=== PATIENT | female | born 1955 | race Hispanic/Latino ===

== ENCOUNTER 2017-07-30 10:31 | Emergency (ER) | payer OTHER ==
--- OUTSIDE RECORDS SUMMARY | 2017-07-30 10:34 | XMS REPORT | Clinical Summary ---
:1955 Author Organization [facility] Address [address] [place] [address] Care Team Providers Name Role Phone Yazmin Escalante MD Primary Care Provider Allergies Active Allergy Reactions Severity Noted Date Comments Penicillins Anaphylaxis High 03/26/2017 Current Medications Prescription Sig. Disp. Refills Start Date End Date Status carvedilol (COREG) 1 tablet twice 60 tablet 2 03/26/2017 Active 25 MG a day tabletIndications: Essential hypertension cholecalciferol, 1 tab weekly 12 tablet 0 04/28/2017 Active vitamin D3, 50,000 every Thursday unit for 12 weeks tabletIndications: than switch to Vitamin D over the deficiency counter vitamin D3 2000 units 1 tab daily until your next visit lisinopril-hydrochl TAKE ONE (1) 90 tablet 0 07/15/2017 Active orothiazide TABLET(S) BY (EVARISTO BROTHERS MOUTH DAILY. C) 20-12.5 mg per tabletIndications: Essential hypertension lisinopril-hydrochl 1 tablet once 11 01/19/2017 03/26/2017 Discontinued orothiazide a day (MAXX BROTHERSSTALESSIATI C) 20-25 mg per tablet carvedilol (COREG) Take by mouth. 03/26/2017 Discontinued 25 MG tablet 1 tablet twice a day lisinopril-hydrochl Take 1 tablet 30 tablet 1 03/26/2017 07/15/2017 Discontinued orothiazide by mouth (ZESTORETIC) daily. 20-12.5 mg per tabletIndications: Essential hypertension Active Problems Problem Noted Date Gastritis determined by endoscopy 04/26/2017 Overview: 05/01/2015 No metaplasia Colon polyps 04/26/2017 Overview: S/p polypectomy 08/2015 Generalized abdominal pain 04/26/2017 Overview: 2015 s/p colonoscopy /EGD by GI Dr Jaquez Acute seasonal allergic rhinitis due to pollen 04/26/2017 Chronic low back pain without sciatica 04/26/2017 H/O: hysterectomy 04/26/2017 Encounter for hepatitis C screening test for low risk patient 08/13/2015 Esophagitis, reflux 04/26/2015 Overview: 2015 Dr Jaquez ,[place] Constipation Diet-controlled diabetes mellitus Overview: not longer taking medication Hypertension Encounters Date Type Specialty Care Team Description 07/15/2017 Refill Internal Medicine Yazmin Escalante Essential hypertension 04/30/2017 Orders Only Internal Medicine Supa Gutiérrez MD 04/28/2017 Office Visit Internal Medicine Yazmin Escalante Essential hypertension (Primary Dx); Diet-controlled diabetes mellitus; Vitamin D deficiency 04/26/2017 Documentation Internal Medicine Yazmin Escalante MD 04/23/2017 Lab Lab Yazmin Escalante Essential hypertension; Type 2 diabetes mellitus without complication, without long-term current use of insulin; Memory deficit 04/22/2017 Orders Only Internal Medicine ProviderSupa MD 04/21/2017 Orders Only Internal Medicine ProviderSupa MD 04/17/2017 Orders Only Internal Medicine ProviderSupa MD 03/26/2017 Office Visit Internal Medicine Yazmin Escalante Essential hypertension (Primary Dx); Type 2 diabetes mellitus without complication, without long-term current use of insulin; Memory deficit; Chronic idiopathic constipation after 07/29/2016 Family History Medical History Relation Name Comments Stroke Father Diabetes Mother Heart disease Mother Hypertension Mother Leukemia Sister Relation Name Status Comments Father (Age 85) Maternal Grandfather Maternal Grandmother Mother (Age 83) Paternal Grandfather Paternal Grandmother Sister Social History Tobacco Use Types Packs/Day Years Used Date Never Smoker Smokeless Tobacco: Never Used Alcohol Use Drinks/Week oz/Week Comments No Sex Assigned at Date Recorded Not on file Last Filed Vital Signs Vital Sign Reading Time Taken Blood Pressure 135/78 04/28/2017 1:08 PM [facility] Pulse 59 04/28/2017 1:08 PM [facility] Temperature 37.1 C (98.7 F) 04/28/2017 1:08 PM [facility] Respiratory Rate - - Oxygen Saturation 98% 04/28/2017 1:08 PM [facility] Inhaled Oxygen Concentration - - Weight 72.6 kg (160 lb) 04/28/2017 1:08 PM [facility] Height 170.2 cm (5' 7") 04/28/2017 1:08 PM [facility] Body Mass Index 25.06 04/28/2017 1:08 PM [facility] Plan of Treatment Health Maintenance Due Date Last Done Comments FOOT EXAM 1963 OPHTHALMOLOGY EXAM 1963 PAP SMEAR 1974 SHINGRIX VACCINE (#1) 2003 ZOSTER VACCINE 2013 MAMMOGRAM 03/30/2015 03/30/2013 INFLUENZA VACCINE 11/28/2017 Postponed from 10/28/2017 (Patient Refused) URINE MICROALBUMIN 04/23/2018 04/23/2017, 04/23/2017 COLONOSCOPY 03/30/2024 03/30/2014 Procedures Procedure Name Priority Date/Time Associated Diagnosis Comments COLONOSCOPY-EXTERNAL Routine 04/21/2017 12:00 AM WE[facility]CHOR after 07/29/2016 Results Obtain medical records (04/30/2017)Only the most recent of3 resultswithin the time period is included.Microalbumin / creatinine urine ratio (04/23/2017 11:08 AM) Component Value Ref Range Creatinine, urine, random 84.7 Not Estab. mg/dL Microalbumin, urine 3.5 Not Estab. ug/mL Microalbumin/creatinine ratio 4.1 0.0 - 30.0 mg/g creat Specimen Performing Laboratory Blood [facility] Narrative Performed at: - [facility] [id number] Engineering Associate: Andrew Bond MD, Phone:[phone] Vitamin D 25 hydroxy level (04/23/2017 11:08 AM) Component Value Ref Range Vitamin D, 25-hydroxy 17.7 (L) 30.0 - 100.0 ng/mL Comment: Vitamin D deficiency has been defined by the [place] of [employer] and an Endocrine Society practice guideline as a level of serum 25-OH vitamin D less than 20 ng/mL (1,2). The Endocrine Society went on to further define vitamin D insufficiency as a level between 21 and 29 ng/mL (2). 1. IOM ([place] of Medicine). 2010. Dietary reference intakes for calcium and D. [place]: The National Academies Press. 2. Eliel MF, Jayna SHAY, Tonia NEVILLE, et al. Evaluation, treatment, and prevention of vitamin D deficiency: an Endocrine Society clinical practice guideline. JCEM. 2010; 96):1911-30. Specimen Performing Laboratory Blood [facility] Narrative Performed at:[address] [place], [place] [id number] Engineering Associate: Andrew Bond MD, Phone:[phone] CBC hemogram (04/23/2017 11:08 AM) Component Value Ref Range WBC 7.1 3.4 - 10.8 x10E3/uL RBC 4.50 3.77 - 5.28 x10E6/uL HGB 13.6 11.1 - 15.9 g/dL HCT 40.5 34.0 - 46.6 % MCV 90 79 - 97 fL MCH 30.2 26.6 - 33.0 pg MCHC 33.6 31.5 - 35.7 g/dL RDW 13.2 12.3 - 15.4 % Platelet count 197 150 - 379 x10E3/uL Specimen Performing Laboratory Blood [facility] Narrative Performed at:[address] [place], [place] [id number] Engineering Associate: Andrew Bond MD, Phone:[phone] Thyroid stimulating hormone (04/23/2017 11:08 AM) Component Value Ref Range TSH 1.180 0.450 - 4.500 uIU/mL Specimen Performing Laboratory Blood [facility] Narrative Performed at:[address] [place], [place] [id number] Engineering Associate: Andrew Bond MD, Phone:[phone] Iron level (04/23/2017 11:08 AM) Component Value Ref Range Iron level 77 27 - 139 ug/dL Specimen Performing Laboratory Blood [facility] Narrative Performed at:[address] [place], [place] [id number] Engineering Associate: Andrew Bond MD, Phone:[phone] Hemoglobin A1c (04/23/2017 11:08 AM) Component Value Ref Range Hemoglobin A1C 5.8 (H) 4.8 - 5.6 % Comment: Pre-diabetes: 5.7 - 6.4 Diabetes: >6.4 Glycemic control for adults with diabetes: <7.0 Specimen Performing Laboratory Blood [facility] Narrative Performed at:[address] [place], [place] [id number] Engineering Associate: Andrew Bond MD, Phone:[phone] Folate level (04/23/2017 11:08 AM) Component Value Ref Range Folate 10.0 >3.0 ng/mL Comment: A serum folate concentration of less than 3.1 ng/mL is considered to represent clinical deficiency. Specimen Performing Laboratory Blood [facility] Narrative Performed at:[address] [place], [place] [id number] Engineering Associate: Andrew Bond MD, Phone:[phone] Ferritin level (04/23/2017 11:08 AM) Component Value Ref Range Ferritin level 134 15 - 150 ng/mL Specimen Performing Laboratory Blood [facility] Narrative Performed at:[address] [place], [place] [id number] Engineering Associate: Andrew Bond MD, Phone:[phone] Vitamin B12 level (04/23/2017 11:08 AM) Component Value Ref Range Vitamin B12 785 232 - 1,245 pg/mL Specimen Performing Laboratory Blood [facility] Narrative Performed at:[address] [place], [place] [id number] Engineering Associate: Andrew Bond MD, Phone:[phone] Lipid panel (04/23/2017 11:08 AM) Component Value Ref Range Cholesterol 189 100 - 199 mg/dL Triglycerides 97 0 - 149 mg/dL HDL cholesterol 64 >39 mg/dL VLDL cholesterol jimbo 19 5 - 40 mg/dL LDL cholesterol calculated 106 (H) 0 - 99 mg/dL Non-HDL cholesterol 125 0 - 129 mg/dL Specimen Performing Laboratory Blood [facility] Narrative Performed at:[address] [place], [place] [id number] Engineering Associate: Andrew Bond MD, Phone:[phone] Comprehensive metabolic panel (04/23/2017 11:08 AM) Component Value Ref Range Glucose 103 (H) 65 - 99 mg/dL BUN, whole blood 15 8 - 27 mg/dL Creatinine 0.62 0.57 - 1.00 mg/dL EGFR Non-Afr. [place]i 96 >59 mL/min/1.73 EGFR 110 >59 mL/min/1.73 BUN/creatinine ratio 24 12 - 28 Sodium 145 (H) 134 - 144 mmol/L Potassium 4.0 3.5 - 5.2 mmol/L Chloride 101 96 - 106 mmol/L CO2 28 18 - 29 mmol/L Calcium 10.0 8.7 - 10.3 mg/dL Protein 7.7 6.0 - 8.5 g/dL Albumin, S 4.6 3.6 - 4.8 g/dL Globulin, total 3.1 1.5 - 4.5 g/dL Albumin/globulin ratio 1.5 1.2 - 2.2 Total bilirubin 0.6 0.0 - 1.2 mg/dL Alkaline phosphatase 129 (H) 39 - 117 IU/L AST 14 0 - 40 IU/L ALT 11 0 - 32 IU/L Specimen Performing Laboratory Blood [facility] Narrative Performed at: - [facility] [id number] Engineering Associate: Andrew Bond MD, Phone:[phone] COLONOSCOPY-EXTERNAL (04/21/2017)after 07/29/2016 Insurance Payer Benefit Plan / Group Subscriber ID Type Phone Address AETNA AETNA HMO,POS,EPO, MC/EC xxxxxxxxxx HMO [phone] [place] [id number]
--- NOTE | 2017-07-30 11:00 | EKG ---
Test Date: 2017-07-30 Test Time: 10:43:09 Devops Consultant: LLOYD MEASUREMENT RESULTS: Intervals: Rate: 59 IA: 160 QRSD: 82 QT: 400 QTc: 396 [place]: P: 68 IA: 160 QRS: 58 T: 26 INTERPRETIVE STATEMENTS: Sinus bradycardia Nonspecific T wave abnormality Abnormal ECG Compared to ECG 12/30/2014 05:33:06 T-wave abnormality now present Left ventricular hypertrophy no longer present Electronically Signed On 07-30-17 10:59:28 CDT by Jerry Smith
[2017-07-30 12:09] LABS: Protime INR 0.95
[2017-07-30 12:10] LABS: Absolute Lymphocytes (CBC) 1.6 K/uL (0.7-4.9); Absolute Monocytes 0.6 K/uL (0.1-1.3); Absolute Neutrophil 6.7 K/uL (1.8-8.0); Basophils % 0.3 % (0-1.3); Eosinophils % 2.2 % (0-4.4); Hematocrit 40.6 % (36.0-45.0); Lymphocytes % 17.8 % (15.3-44.8); MCH 29.8 pg (27.0-35.0); MCV 89.6 fL (80-100); MPV 10.3 fL (7.6-11.3); Monocytes % 6.6 % (3.3-12.3); RBC Red Blood Cell Count 4.53 M/uL (3.86-4.86)
--- NOTE | 2017-07-30 12:13 | RAD REPORT ---
EXAM DESCRIPTION: CT - Head Brain Wo Cont - 07/30/2017 12:02 pm CLINICAL HISTORY: Headache COMPARISON: 09/02/2016, 06/12/2015 TECHNIQUE: All CT scans are performed using dose optimization technique as appropriate and may inclu de automated exposure control or mA/KV adjustment according to patient size. FINDINGS: No intracranial hemorrhage, hydrocephalus or extra-axial fluid collection.No areas of brai n edema or evidence of midline shift. The paranasal sinuses and mastoids are clear. Right frontal previous craniotomy changes noted. IMPRESSION: No acute intracranial abnormality.
[2017-07-30 12:16] LABS: Potassium 3.7 mEq/L (3.6-5.0)
[2017-07-30 12:22] LABS: Albumin 4.1 g/dL (3.2-5.5); Bilirubin Direct 0.1 mg/dL (0-0.2); Bilirubin Total 0.5 mg/dL (0.3-1.2); Magnesium 1.7 mg/dL (1.8-2.5); Protein, Total 7.8 g/dL (6.0-8.3)
[2017-07-30 12:23] LABS: CKMB Creatine Kinase MB 2.5 ng/ml (0.3-4.0)
[2017-07-30] MEDS ORDERED: DIPHENHYDRAMINE 50 MG/ML VIAL ONE (12:30)
[2017-07-30] MEDS ORDERED: DEXAMETHASONE 10 MG/ML VIAL ONE (12:30)
[2017-07-30] MEDS ORDERED: METOCLOPRAMIDE 10 MG/2mL INJ ONE (12:30)
[2017-07-30] MEDS ORDERED: ONDANSETRON 4 MG/2 ML VIAL ONE (12:30)
[2017-07-30] MEDS ORDERED: Magnesium Sulfate 2gm IVPB 2 G/50 ML BAG IV ONE (12:31)
--- NOTE | 2017-07-30 12:34 | RAD REPORT ---
EXAM DESCRIPTION: RAD - Chest Single View - 07/30/2017 12:29 pm CLINICAL HISTORY: Headache, chest pain COMPARISON: 12/29/2014 FINDINGS: Portable technique limits examination quality. The lungs are grossly clear. The heart is normal in size. No displaced fractures.Cervical hardware pl ate noted. IMPRESSION: No acute intrathoracic process suspected.
[2017-07-30] MEDS ORDERED: NA CHLORIDE 0.9% 1,000 ML ONE (12:50)
--- NOTE | 2017-07-30 15:32 | ER ---
Nurse's Notes [facility] Name: Sofia Syed Age: 62 yrs Sex: Female : 1955 Arrival Date: 07/30/2017 Time: 10:36 Bed 17 Private MD: Diagnosis: Headache;Chest pain, unspecified Presentation: 07/30 10:37 Presenting complaint: Patient states: i started having headache for days but today its hj getting worse and when i woke up this morning around 6am, i started having chest pain, non radiating pain, 8/10; denies SOB, denies cough, denies fever and chills;. Transition of care: patient was not received from another setting of care. Onset of symptoms was July 30, 2017. Initial Sepsis Screen: Does the patient meet any 2 criteria? No. Patient's initial sepsis screen is negative. Does the patient have a suspected source of infection? No. Patient's initial sepsis screen is negative. Care prior to arrival: None. 10:37 Method Of Arrival: Ambulatory 10:37 Acuity: GILBERTO 3 hj Triage Assessment: 10:41 Headache History: Denies prior headaches. General: Appears in no apparent distress. hj uncomfortable, Behavior is calm, cooperative, appropriate for age. Pain: Complains of pain in chest Pain currently is 8 out of 10 on a pain scale. Pain began 4 hours ago. Also complains of. Neuro: Level of Consciousness is awake, alert, obeys commands, Oriented to person, place, time, situation, Appropriate for age. Historical: - Allergies: 10:41 PENICILLINS; hj - Home Meds: 10:41 carvedilol 25 mg Oral tab [Active]; lisinopril-hydrochlorothiazide 20-12.5 mg oral tab hj 1 tab once daily [Active]; - PMHx: 10:41 Diabetes - NIDDM; Dyspepsia; Hypertension; lymphedema; hj - PSHx: 10:41 brain; hj - Immunization history:: Adult Immunizations up to date. - Social history:: Smoking status: Patient/guardian denies using tobacco. Screenin:24 Abuse screen: Denies threats or abuse. Nutritional screening: No deficits noted. em Tuberculosis screening: No symptoms or risk factors identified. Fall Risk None identified. Assessment: 11:24 General: Appears in no apparent distress. comfortable, Behavior is calm, cooperative. em Pain: Complains of pain in cheat and head. Neuro: Level of Consciousness is awake, alert, obeys commands, Oriented to person, place, time, situation. Cardiovascular: Capillary refill < 3 seconds Patient's skin is warm and dry. Respiratory: Airway is patent Respiratory effort is even, unlabored, Respiratory pattern is regular, symmetrical. GI: Abdomen is flat, Reports nausea, Patient currently denies diarrhea, vomiting. : No signs and/or symptoms were reported regarding the genitourinary system. EENT: No signs and/or symptoms were reported regarding the EENT system. Derm: Skin is intact, Skin is pink, warm \T\ dry. Musculoskeletal: Range of motion: intact in all extremities. 12:31 Reassessment: Patient appears in no apparent distress at this time. Patient and/or em family updated on plan of care and expected duration. Pain level reassessed. Patient is alert, oriented x 3, equal unlabored respirations, skin warm/dry/pink. Patient states feeling better. Vital Signs: 10:41 BP 120 / 54; Pulse 62; Resp 18; Temp 97.1(TE); Pulse Ox 98% on R/A; Weight 73.48 kg; hj Height 5 ft. 3 in. (160.02 cm); Pain 8/10; 12:30 BP 134 / 68; Pulse 52; Resp 16; Pulse Ox 99% on R/A; em 13:45 BP 109 / 50; Pulse 51; Resp 18; Pulse Ox 97% on R/A; em 10:41 Body Mass Index 28.70 (73.48 kg, 160.02 cm) ED Course: 10:36 Patient arrived in ED. mr 10:39 Triage completed. hj 10:43 Arm band placed on left wrist. hj 10:47 EKG done, by light technician. reviewed by Edd Gibson MD. at1 11:11 Momo Fitzgerald, JOSIANE is Primary Nurse. ae1 11:14 Volodymyr Menard PA is PHCP. cp 11:14 Edd Gibson MD is Attending Physician. cp 11:30 Patient has correct armband on for positive identification. Bed in low position. Call em light in reach. Side rails up X2. Adult w/ patient. 11:[address] via stretcher. vr 11:46 Radiology exam delayed due to pt not ready at this time, iv being started. vr 11:53 Initial lab(s) drawn, by me, sent to lab. Inserted saline lock: 20 gauge in left dh3 antecubital area, using aseptic technique. Blood collected. 12:02 CT Head Brain wo Cont In Process Unspecified. EDMS 12:28 X-ray completed. Portable x-ray completed in exam room. Patient tolerated procedure jb2 well. 12:29 XRAY Chest (1 view) In Process Unspecified. EDMS 13:08 No provider procedures requiring assistance completed. em 15:01 Repeat lab(s) drawn. by me, sent to lab. 3 15:31 Kemal Mix MD is Referral Physician. cp 15:31 Jerry Smith MD is Referral Physician. cp 15:33 EKG done, by light technician. reviewed by Volodymyr PHILIPPE. dt2 16:51 IV discontinued, intact, bleeding controlled, No redness/swelling at site. Pressure iw dressing applied. Administered Medications: 12:37 CANCELLED (Physician Discretion): NS 0.9% 500 ml IV at bolus once cp 12:45 Drug: Reglan 10 mg Route: IVP; Site: left antecubital; iw 15:28 Follow up: Response: No adverse reaction em 12:45 Drug: Decadron - Dexamethasone 10 mg Route: IVP; Site: left antecubital; iw 15:28 Follow up: Response: No adverse reaction em 12:45 Drug: Zofran 4 mg Route: IVP; Site: left antecubital; iw 15:28 Follow up: Response: No adverse reaction em 12:45 Drug: Benadryl 25 mg Route: IVP; Site: left antecubital; iw 15:27 Follow up: Response: No adverse reaction em 12:53 Drug: Magnesium Sulfate 2 grams Route: IVPB; Infused Over: 2 hrs; Site: left em antecubital; 15:26 Follow up: IV Status: Completed infusion; IV Intake: 50ml em 12:58 Drug: NS 0.9% 1000 ml Route: IV; Rate: 500 ml/hr; Site: left antecubital; em 15:27 Follow up: IV Status: Completed infusion; IV Intake: 1000ml em 12:59 Drug: Aspirin Chewable Tablet 324 mg Route: PO; em 15:27 Follow up: Response: No adverse reaction em Intake: 15:26 IV: 50ml; Total: 50ml. em 15:27 IV: 1000ml; Total: 1050ml. em Outcome: 15:31 Discharge ordered by MD. cp 16:51 Discharged to home ambulatory, with family. iw 16:51 Condition: good 16:51 Discharge instructions given to patient, family, Instructed on discharge instructions, follow up and referral plans. medication usage, Demonstrated understanding of instructions, follow-up care, medications, Prescriptions given X 2. 16:52 Patient left the ED. iw Signatures: Dispatcher [employer] Denisa Zaldivar, Sj jb2 Alfred Paige, FOOD BEVERAGE SERVER FOOD BEVERAGE SERVER em Jennifer Solo, RN RN iw Paula Almaraz Amanda, commission specialist EKG Tat1 Eduardo Barfield RN RN hj Volodymyr Menard PA PA cp Elliott, Andrea RN RN ae1 Josy Hernandez dh3 Dilia Chauhan dt2 Corrections: (The following items were deleted from the chart) 10:42 10:41 Pulse 62bpm; Resp 18bpm; Pulse Ox 98% RA; Temp 97.1F Temporal; 73.48 kg; Height 5 hj ft. 3 in.; BMI: 28.7; Pain 8/10; hj 10:43 10:41 Pulse 62bpm; Resp 18bpm; Pulse Ox 98% RA; Temp 97.1F Temporal; 73.48 kg; Height 5 hj ft. 3 in.; BMI: 28.7; Pain 8/10; hj
--- NOTE | 2017-07-30 15:32 | EDPHYS ---
Physician Documentation [facility] Name: Sofia Syed Age: 62 yrs Sex: Female : 1955 Arrival Date: 07/30/2017 Time: 10:36 Bed 17 Private MD: ED Physician Edd Gibson HPI: 07/30 12:00 This 62 yrs old Female presents to ER via Ambulatory with complaints of cp Headache, Back Pain, Chest Pain. Historical: - Allergies: 10:41 PENICILLINS; hj - Home Meds: 10:41 carvedilol 25 mg Oral tab [Active]; lisinopril-hydrochlorothiazide 20-12.5 mg oral tab hj 1 tab once daily [Active]; - PMHx: 10:41 Diabetes - NIDDM; Dyspepsia; Hypertension; lymphedema; hj - PSHx: 10:41 brain; hj - Immunization history:: Adult Immunizations up to date. - Social history:: Smoking status: Patient/guardian denies using tobacco. ROS: 12:05 Constitutional: Negative for body aches, chills, fever, poor PO intake. cp 12:05 Eyes: Negative for injury, pain, redness, and discharge. cp 12:05 ENT: Negative for drainage from ear(s), ear pain, sore throat, difficulty swallowing, difficulty handling secretions. 12:05 Cardiovascular: Positive for chest pain, Negative for edema, palpitations. 12:05 Respiratory: Negative for cough, shortness of breath, wheezing. 12:05 Abdomen/GI: Positive for nausea, Negative for abdominal pain, vomiting, diarrhea, constipation, black/tarry stool, rectal bleeding. 12:05 Back: Positive for pain at rest. 12:05 : Negative for urinary symptoms. 12:05 Neuro: Positive for headache, Negative for altered mental status, dizziness, speech changes, syncope, near syncope, weakness. 12:05 All other systems are negative. Exam: 10:50 ECG was reviewed by the Attending Physician. cp 12:12 Constitutional: The patient appears in no acute distress, alert, awake, cp non-diaphoretic, non-toxic, well developed, well nourished. 12:12 Head/Face: Normocephalic, atraumatic. Eyes: Pupils equal round and reactive to light, cp extra-ocular motions intact. Lids and lashes normal. Conjunctiva and sclera are non-icteric and not injected. Cornea within normal limits. Periorbital areas with no swelling, redness, or edema. ENT: Nares patent. No nasal discharge, no septal abnormalities noted. Tympanic membranes are normal and external auditory canals are clear. Oropharynx with no redness, swelling, or masses, exudates, or evidence of obstruction, uvula midline. Mucous membranes moist. Neck: Trachea midline, no thyromegaly or masses palpated, and no cervical lymphadenopathy. Supple, full range of motion without nuchal rigidity, or vertebral point tenderness. No Meningismus. Chest/axilla: Normal chest wall appearance and motion. Nontender with no deformity. No lesions are appreciated. 12:12 Cardiovascular: Rate: normal, Rhythm: regular, Pulses: Pulses are 2+ in right radial artery and left radial artery. Edema: is not appreciated, JVD: is not appreciated. 12:12 Respiratory: the patient does not display signs of respiratory distress, Respirations: normal, no use of accessory muscles, no retractions, no splinting, no tachypnea, labored breathing, is not present, Breath sounds: are clear throughout, no decreased breath sounds, no stridor, no wheezing. 12:12 Abdomen/GI: Inspection: abdomen appears normal, Bowel sounds: active, all quadrants, Palpation: abdomen is soft and non-tender, in all quadrants, rebound tenderness, is not appreciated, voluntary guarding, is not appreciated, involuntary guarding, is not appreciated. 12:12 Skin: cellulitis, is not appreciated, no rash present. 12:12 Neuro: Orientation: to person, place \T\ time. Mentation: is normal, Cerebellar function: is grossly normal, Motor: moves all fours, strength is normal, Sensation: no obvious gross deficits. Vital Signs: 10:41 BP 120 / 54; Pulse 62; Resp 18; Temp 97.1(TE); Pulse Ox 98% on R/A; Weight 73.48 kg; hj Height 5 ft. 3 in. (160.02 cm); Pain 8/10; 12:30 BP 134 / 68; Pulse 52; Resp 16; Pulse Ox 99% on R/A; em 13:45 BP 109 / 50; Pulse 51; Resp 18; Pulse Ox 97% on R/A; em 10:41 Body Mass Index 28.70 (73.48 kg, 160.02 cm) hj MDM: 11:20 Patient medically screened. cp 15:30 Data reviewed: vital signs, nurses notes, lab test result(s), EKG, radiologic studies, cp CT scan, plain films. 15:30 Test interpretation: by ED physician or midlevel provider: ECG, plain radiologic cp studies. Response to treatment: the patient's symptoms have markedly improved after treatment, and as a result, I will discharge patient. Special discussion: Based on the patient's history, exam, and Dx evaluation, there is no indication for emergent intervention or inpatient Tx. It is understood by the patient/guardian that if the Sx's persist or worsen they need to return immediately for re-evaluation. 07/30 11:36 Order name: Basic Metabolic Panel; Complete Time: 12:25 cp 05/03 12:25 Interpretation: Normal except: GLUC 142; GFR 75. cp 07/30 11:36 Order name: BNP; Complete Time: 12:25 cp 07/30 11:36 Order name: CBC with Diff; Complete Time: 12:25 cp 07/30 11:36 Order name: Ckmb; Complete Time: 12:25 cp 07/30 11:36 Order name: CPK; Complete Time: 12:25 cp 07/30 11:36 Order name: LFT's; Complete Time: 12:25 cp 05 11:36 Order name: Magnesium; Complete Time: 12:25 cp 05 11:36 Order name: PT-INR; Complete Time: 12:25 cp 07/30 11:36 Order name: Ptt, Activated; Complete Time: 12:25 cp 05 11:36 Order name: Troponin (emerg Dept Use Only); Complete Time: 12:25 cp 07/30 11:36 Order name: XRAY Chest (1 view); Complete Time: 12:37 cp 07/30 11:36 Order name: CT Head Brain wo Cont; Complete Time: 12:25 cp 0503 14:42 Order name: Troponin I; Complete Time: 15:30 cp 05/03 10:43 Order name: EKG; Complete Time: 10:43 hj 07/30 11:36 Order name: Cardiac monitoring; Complete Time: 13:08 cp 07/30 11:36 Order name: EKG - Nurse/Tech; Complete Time: 13:08 cp 07/30 11:36 Order name: IV Saline Lock; Complete Time: 11:54 cp 07/30 11:36 Order name: Labs collected and sent; Complete Time: 11:54 cp 07/30 11:36 Order name: O2 Per Protocol; Complete Time: 12:21 cp 07/30 11:36 Order name: O2 Sat Monitoring; Complete Time: 12:21 cp 07/30 14:42 Order name: EKG; Complete Time: 14:46 cp 07/30 14:42 Order name: EKG - Nurse/Tech; Complete Time: 15:26 cp EC:50 Rate is 59 beats/min. Rhythm is regular. VA interval is normal. QRS interval is normal. cp QT interval is normal. No ST changes noted. Interpreted by me. Reviewed by me. Administered Medications: 12:37 CANCELLED (Physician Discretion): NS 0.9% 500 ml IV at bolus once cp 12:45 Drug: Reglan 10 mg Route: IVP; Site: left antecubital; iw 15:28 Follow up: Response: No adverse reaction em 12:45 Drug: Decadron - Dexamethasone 10 mg Route: IVP; Site: left antecubital; iw 15:28 Follow up: Response: No adverse reaction em 12:45 Drug: Zofran 4 mg Route: IVP; Site: left antecubital; iw 15:28 Follow up: Response: No adverse reaction em 12:45 Drug: Benadryl 25 mg Route: IVP; Site: left antecubital; iw 15:27 Follow up: Response: No adverse reaction em 12:53 Drug: Magnesium Sulfate 2 grams Route: IVPB; Infused Over: 2 hrs; Site: left em antecubital; 15:26 Follow up: IV Status: Completed infusion; IV Intake: 50ml em 12:58 Drug: NS 0.9% 1000 ml Route: IV; Rate: 500 ml/hr; Site: left antecubital; em 15:27 Follow up: IV Status: Completed infusion; IV Intake: 1000ml em 12:59 Drug: Aspirin Chewable Tablet 324 mg Route: PO; em 15:27 Follow up: Response: No adverse reaction em Disposition: 07/31 07:03 Co-signature as Attending Physician, Edd Gibson MD I agree with the assessment and wa plan of care. Disposition: 07/30/17 15:31 Discharged to Home. Impression: Headache, Chest pain, unspecified. - Condition is Stable. - Discharge Instructions: Nonspecific Chest Pain, General Headache Without Cause, Aspirin and Your Heart. - Prescriptions for Fiorinal 50- 325-40 mg Oral Capsule - take 1 capsule by ORAL route every 4 hours As needed - not to exceed 6 capsules per day; 20 capsule. Pepcid 20 mg Oral Tablet - take 1 tablet by ORAL route every 12 hours for 10 days; 20 tablet. Zofran 4 mg Oral Tablet - take 1 tablet by ORAL route every 12 hours As needed; 20 tablet. - Medication Reconciliation Form, Thank You Letter, Antibiotic Education, Prescription Opioid Use form. - Follow up: Kemal Mix MD; When: 1 - 2 days; Reason: headache. Follow up: Jerry Smith MD; When: 1 - 2 days; Reason: chest pain. - Problem is new. - Symptoms have improved. Signatures: Dispatcher [employer] EDKS Alfred Paige, LINES TENDER LINES TENDER em Jennifer Solo RN RN iw Eduardo Barfield RN RN Volodymyr Menard PA PA cp Edd Gibson MD MD wa Corrections: (The following items were deleted from the chart) 07/30 12:37 12:37 NS 0.9% 500 ml IV at bolus once ordered. cp cp 16:52 15:31 07/30/2017 15:31 Discharged to Home. Impression: Headache; Chest pain, iw unspecified. Condition is Stable. Forms are Medication Reconciliation Form, Thank You Letter, Antibiotic Education, Prescription Opioid Use. Follow up: Kemal Mix; When: 1 - 2 days; Reason: headache. Follow up: Jerry Smith; When: 1 - 2 days; Reason: chest pain. Problem is new. Symptoms have improved. cp
--- NOTE | 2017-07-30 16:19 | EKG ---
Test Date: 2017-07-30 Test Time: 15:24:08 Scraper Loader Operator: JOSHUA MEASUREMENT RESULTS: Intervals: Rate: 53 ND: 168 QRSD: 90 QT: 438 QTc: 410 [place]: P: 69 ND: 168 QRS: 62 T: 75 INTERPRETIVE STATEMENTS: Sinus bradycardia Otherwise normal ECG Compared to ECG 07/30/2017 10:43:09 T-wave abnormality no longer present Electronically Signed On 07-30-17 16:18:41 CDT by Jerry Smith
[2017-07-30 18:08] VITALS: TEMP 97.1
[2017-07-30 18:10] VITALS: BP 109/50; O2SAT 97
== END 2017-07-30 16:52 | disposition home or self-care (01) ==
LOC: ER 10:31
DX: R07.9 Chest pain, unspecified (principal); I10 Essential (primary) hypertension; E11.9 Type 2 diabetes mellitus without complications; Z88.0 Allergy status to penicillin
CPT/HCPCS: 36415; 70450; 71045; 80048; 80076; 82550; 82553; 83735; 83880; 84484; 85025; 85610; 85730; 93005; 96361; 96365; 96366; 96375; 99284; J1100; J2405; J2765; J3475; J7030

== ENCOUNTER 2017-10-20 22:37 | Emergency (ER) | payer OTHER ==
--- OUTSIDE RECORDS SUMMARY | 2017-10-20 22:39 | XMS REPORT | Clinical Summary ---
:1955 Author Organization [facility] Address [address] [place] [address] Care Team Providers Name Role Phone Yazmin [...] hypertension 04/30/2017 Orders Only Internal Medicine Supa Gutiérrez, 04/28/2017 Office Visit Internal Medicine Yazmin Escalante [...] insulin; Memory deficit; Chronic idiopathic constipation after 10/19/2016 Family History Medical History Relation Name Comments [...] Taken Blood Pressure 135/78 04/28/2017 1:08 PM CANE PILER Pulse 59 04/28/2017 1:08 PM CANE PILER Temperature 37.1 C (98.7 F) 04/28/2017 1:08 PM CANE PILER Respiratory Rate - - Oxygen Saturation 98% 04/28/2017 1:08 PM CANE PILER Inhaled Oxygen Concentration - - Weight 72.6 kg (160 lb) 04/28/2017 1:08 PM CANE PILER Height 170.2 cm (5' 7") 04/28/2017 1:08 PM CANE PILER Body Mass Index 25.06 04/28/2017 1:08 PM CANE PILER Plan of Treatment Health Maintenance Due Date Last Done Comments DIABETIC FOOT EXAM 1963 DIABETIC RETINAL EYE EXAM 1963 CERVICAL CANCER SCREENING 1974 SHINGRIX VACCINE (#1) 2003 ZOSTER VACCINE 2013 BREAST CANCER SCREENING 03/30/2015 03/30/2013 INFLUENZA VACCINE 11/28/2017 Postponed from 10/28/2017 (Patient Refused) URINE MICROALBUMIN 04/23/2018 04/23/2017, 04/23/2017 COLON CANCER SCREENING 03/30/2024 03/30/2014 Procedures Procedure Name Priority Date/Time Associated Comments Diagnosis OBTAIN MEDICAL RECORDS Routine 04/30/2017 12:00 AM CANE PILER FERRITIN LEVEL Routine 04/23/2017 11:08 Essential Results for this AM CANE PILER hypertension procedure are in Type 2 diabetes the results mellitus without section. complication, without long-term current use of insulin Memory deficit IRON LEVEL Routine 04/23/2017 11:08 Essential Results for this AM CANE PILER hypertension procedure are in Type 2 diabetes the results mellitus without section. complication, without long-term current use of insulin Memory deficit FOLATE LEVEL Routine 04/23/2017 11:08 Essential Results for this AM CANE PILER hypertension procedure are in Type 2 diabetes the results mellitus without section. complication, without long-term current use of insulin Memory deficit VITAMIN B12 LEVEL Routine 04/23/2017 11:08 Essential Results for this AM CANE PILER hypertension procedure are in Type 2 diabetes the results mellitus without section. complication, without long-term current use of insulin Memory deficit VITAMIN D 25 HYDROXY Routine 04/23/2017 11:08 Essential Results for this LEVEL AM CANE PILER hypertension procedure are in Type 2 diabetes the results mellitus without section. complication, without long-term current use of insulin Memory deficit THYROID STIMULATING Routine 04/23/2017 11:08 Essential Results for this HORMONE AM CANE PILER hypertension procedure are in Type 2 diabetes the results mellitus without section. complication, without long-term current use of insulin Memory deficit MICROALBUMIN / Routine 04/23/2017 11:08 Essential Results for this CREATININE URINE RATIO AM CANE PILER hypertension procedure are in Type 2 diabetes the results mellitus without section. complication, without long-term current use of insulin Memory deficit LIPID PANEL Routine 04/23/2017 11:08 Essential Results for this AM CANE PILER hypertension procedure are in Type 2 diabetes the results mellitus without section. complication, without long-term current use of insulin Memory deficit HEMOGLOBIN A1C Routine 04/23/2017 11:08 Essential Results for this AM CANE PILER hypertension procedure are in Type 2 diabetes the results mellitus without section. complication, without long-term current use of insulin Memory deficit COMPREHENSIVE Routine 04/23/2017 11:08 Essential Results for this METABOLIC PANEL AM CANE PILER hypertension procedure are in Type 2 diabetes the results mellitus without section. complication, without long-term current use of insulin Memory deficit CBC HEMOGRAM Routine 04/23/2017 11:08 Essential Results for this AM CANE PILER hypertension procedure are in Type 2 diabetes the results mellitus without section. complication, without long-term current use of insulin Memory deficit OBTAIN MEDICAL RECORDS Routine 04/22/2017 12:00 AM CANE PILER COLONOSCOPY-EXTERNAL Routine 04/21/2017 12:00 AM CANE PILER OBTAIN MEDICAL RECORDS Routine 04/17/2017 12:00 AM CANE PILER after 10/19/2016 Results Obtain medical records (04/30/2017)Only the most recent of3 resultswithin the time period is included. Narrative Performed At Microalbumin / creatinine urine ratio (04/23/2017 11:08 AM) Creatinine, urine, random 84.7 Not Estab. mg/dL [facility] Microalbumin, urine 3.5 Not Estab. ug/mL [facility] Microalbumin/creatinine ratio 4.1 0.0 - 30.0 mg/g creat [facility] Specimen Blood Narrative Performed At Performed at: [facility] [address] [place], [id number] Insurance Billing Clerk: Andrew Bond MD, Phone:[phone] Performing Organization Address City/State/Zipcode Phone Number [facility] Vitamin D 25 hydroxy level (04/23/2017 11:08 AM) Vitamin D, 25-hydroxy 17.7 (L) 30.0 - 100.0 ng/mL [facility] Comment: Vitamin D deficiency has been defined by the [place] of Medicine and an Endocrine Society practice guideline as a level of serum 25-OH vitamin D less than 20 ng/mL (1,2). The Endocrine Society went on to further define vitamin D insufficiency as a level between 21 and 29 ng/mL (2). 1. IOM ([place] of Medicine). 2010. Dietary reference intakes for calcium and D. [place]: The National Academies Press. 2. Eliel MF, Jayna SHAY, Tonia NEVILLE, et al. Evaluation, treatment, and prevention of vitamin D deficiency: an Endocrine Society clinical practice guideline. JCEM. 2010; 96(7):1911-30. Specimen Blood Narrative Performed At Performed at: [facility] [address] [place], [place] [id number] Insurance Billing Clerk: Andrew Bond MD, Phone:[phone] Performing Organization Address [facility] [place] Phone Number [facility] CBC hemogram (04/23/2017 11:08 AM) WBC 7.1 3.4 - 10.8 x10E3/uL [facility] RBC 4.50 3.77 - 5.28 x10E6/uL [facility] HGB 13.6 11.1 - 15.9 g/dL [facility] HCT 40.5 34.0 - 46.6 % [facility] MCV 90 79 - 97 fL [facility] MCH 30.2 26.6 - 33.0 pg [facility] MCHC 33.6 31.5 - 35.7 g/dL [facility] RDW 13.2 12.3 - 15.4 % [facility] Platelet count 197 150 - 379 x10E3/uL [facility] Specimen Blood Narrative Performed At [facility]formed at: [facility] [address] [place], [place] [id number] Insurance Billing Clerk: Andrew Bond MD, Phone:[phone] Performing Organization Address [facility] Phone Number [facility] Thyroid stimulating hormone (04/23/2017 11:08 AM) TSH 1.180 0.450 - 4.500 uIU/mL [facility] Specimen Blood Narrative Performed At Performed at:[address] [place], [place] [id number] Insurance Billing Clerk: Andrew Bond MD, Phone:[phone] Performing Organization Address [facility] Phone Number [facility] Iron level (04/23/2017 11:08 AM) Iron level 77 27 - 139 ug/dL [facility] Specimen Blood Narrative Performed At Performed at: [id number] Insurance Billing Clerk: Andrew Bond MD, Phone:[phone] Performing Organization Address [facility] Phone Number [facility] Hemoglobin A1c (04/23/2017 11:08 AM) Hemoglobin A1C 5.8 (H) 4.8 - 5.6 % [facility] Comment: Pre-diabetes: 5.7 - 6.4 Diabetes: >6.4 Glycemic control for adults with diabetes: <7.0 Specimen Blood Narrative Performed At Performed at: [id number] Insurance Billing Clerk: Andrew Bond MD, Phone:[phone] Performing Organization Address [facility] Phone Number [facility] Folate level (04/23/2017 11:08 AM) Folate 10.0 >3.0 ng/mL [facility] Comment: A serum folate concentration of less than 3.1 ng/mL is considered to represent clinical deficiency. Specimen Blood Narrative Performed At Performed at: [id number] Insurance Billing Clerk: Andrew Bond MD, Phone:[phone] Performing Organization Address [facility] Phone Number [facility] Ferritin level (04/23/2017 11:08 AM) Ferritin level 134 15 - 150 ng/mL [facility] Specimen Blood Narrative Performed At Performed at: [id number] Insurance Billing Clerk: Andrew Bond MD, Phone:[phone] Performing Organization Address [facility] [place] Phone Number [facility] Vitamin B12 level (04/23/2017 11:08 AM) Vitamin B12 785 232 - 1,245 pg/mL [facility] Specimen Blood Narrative Performed At Performed at:[address] [place], [place] [id number] Insurance Billing Clerk: Andrew Bond MD, Phone:[phone] Performing Organization Address [facility] Phone Number [facility] Lipid panel (04/23/2017 11:08 AM) Cholesterol 189 100 - 199 mg/dL [facility] Triglycerides 97 0 - 149 mg/dL [facility] HDL cholesterol 64 >39 mg/dL [facility] VLDL cholesterol jimbo 19 5 - 40 mg/dL [facility] LDL cholesterol calculated 106 (H) 0 - 99 mg/dL [facility] Non-HDL cholesterol 125 0 - 129 mg/dL [facility] Specimen Blood Narrative Performed At Performed at: [facility] [address] [place], [place] [id number] Insurance Billing Clerk: Andrew Bond MD, Phone:[phone] Performing Organization Address [facility] Phone Number [facility] Comprehensive metabolic panel (04/23/2017 11:08 AM) Glucose 103 (H) 65 - 99 mg/dL [facility] BUN, whole blood 15 8 - 27 mg/dL [facility] Creatinine 0.62 0.57 - 1.00 mg/dL [facility] EGFR Non-Afr. Turkish 96 >59 mL/min/1.73 [facility] EGFR 110 >59 mL/min/1.73 [facility] BUN/creatinine ratio 24 12 - 28 [facility] Sodium 145 (H) 134 - 144 mmol/L [facility] Potassium 4.0 3.5 - 5.2 mmol/L [facility] [place] 101 96 - 106 mmol/L [facility] CO2 28 18 - 29 mmol/L [facility] Calcium 10.0 8.7 - 10.3 mg/dL [facility] Protein 7.7 6.0 - 8.5 g/dL [facility] Albumin, S 4.6 3.6 - 4.8 g/dL [facility] Globulin, total 3.1 1.5 - 4.5 g/dL [facility] Albumin/globulin ratio 1.5 1.2 - 2.2 [facility] Total bilirubin 0.6 0.0 - 1.2 mg/dL [facility] Alkaline phosphatase 129 (H) 39 - 117 IU/L [facility] AST 14 0 - 40 IU/L [facility] ALT 11 0 - 32 IU/L [facility] Specimen Blood Narrative Performed At Performed at: - [facility] [address] [place], [id number] Insurance Billing Clerk: Andrew Bond MD, Phone:[phone] Performing Organization Address City/State/Zipcode Phone Number [facility] COLONOSCOPY-EXTERNAL (04/21/2017) Narrative Performed At after 10/19/2016 Insurance Payer Benefit Plan / Group Subscriber ID Type Phone Address AETNA AETNA HMO,POS,EPO, MC/EC xxxxxxxxxx HMO [phone] [place], [place] [id number]
[2017-10-20] MEDS ORDERED: ONDANSETRON 4 MG/2 ML VIAL ONE (23:18)
[2017-10-20] MEDS ORDERED: MORPHINE 4 MG/ML SYR ONE (23:18)
[2017-10-20 23:25] LABS: Absolute Lymphocytes (CBC) 2.2 K/uL (0.7-4.9); Absolute Monocytes 0.5 K/uL (0.1-1.3); Absolute Neutrophil 4.1 K/uL (1.8-8.0); Basophils % 0.6 % (0-1.3); Eosinophils % 3.9 % (0-4.4); Hematocrit 38.3 % (36.0-45.0); MCH 30.6 pg (27.0-35.0); MPV 10.1 fL (7.6-11.3); Monocytes % 7.3 % (3.3-12.3)
[2017-10-20 23:33] LABS: Urine Blood NEGATIVE (NEG); Urine Glucose NEGATIVE (NEG); Urine Protein NEGATIVE (NEG); Urine Specific Gravity 1.015 (1.005-1.030)
[2017-10-20 23:33] LABS: Urine Bacteria <20 /HPF (<20); Urine Culture Reflex Order NOT NEEDED; Urine RBC <5 /HPF (NONE SEEN)
[2017-10-20 23:41] LABS: Albumin 3.7 g/dL (3.4-5.0); Bilirubin Direct 0.1 mg/dL (0-0.2); Bilirubin Total 0.3 mg/dL (0.2-1.0); Potassium 3.4 mmol/L (3.5-5.1); Protein, Total 7.9 g/dL (6.4-8.2)
--- NOTE | 2017-10-21 01:55 | ER ---
Nurse's Notes [facility] Name: Sofia Syed Age: 62 yrs Sex: Female : 1955 Arrival Date: 10/20/2017 Time: 22:41 Bed 18 Private MD: Renetta Baca Diagnosis: Unspecified abdominal pain Presentation: 10/20 22:49 Presenting complaint: Patient states: she is having right flank pain radiating to bb abdomen since approx 1600 today pain is constant and is 10/10. Transition of care: patient was not received from another setting of care. Onset of symptoms was October 20, 2017 at 16:00. Risk Assessment: Do you want to hurt yourself or someone else? Patient reports no desire to harm self or others. Initial Sepsis Screen: Does the patient meet any 2 criteria? No. Patient's initial sepsis screen is negative. Does the patient have a suspected source of infection? No. Patient's initial sepsis screen is negative. Care prior to arrival: None. 22:49 Method Of Arrival: Ambulatory bb 22:49 Acuity: GILBERTO 3 bb Historical: - Allergies: 22:50 PENICILLINS; bb - Home Meds: 22:50 carvedilol 25 mg Oral tab [Active]; lisinopril-hydrochlorothiazide 20-12.5 mg Oral tab bb 1 tab once daily [Active]; - PMHx: 22:50 Diabetes - NIDDM; Dyspepsia; Hypertension; lymphedema; bb - PSHx: 22:50 brain; Cholecystectomy; bb - Immunization history:: Adult Immunizations up to date. - Social history:: Smoking status: Patient/guardian denies using tobacco, Patient/guardian denies using alcohol, street drugs. - Ebola Screening: : No symptoms or risks identified at this time. Screenin:17 Abuse screen: Denies threats or abuse. Nutritional screening: No deficits noted. ea Tuberculosis screening: No symptoms or risk factors identified. Fall Risk None identified. Assessment: 23:27 General: Appears in no apparent distress. Behavior is calm, cooperative, appropriate ea for age. Pain: Complains of pain in anterior aspect of right lateral abdomen, anterior aspect of left lateral abdomen, right lower quadrant and left lower quadrant. Pain: Quality of pain is described as aching, Is continuous. Neuro: Level of Consciousness is awake, alert, obeys commands, Oriented to person, place, time, situation. Cardiovascular: Heart tones S1 S2 present. Respiratory: Airway is patent Respiratory effort is even, unlabored, Respiratory pattern is regular, symmetrical, Breath sounds are clear bilaterally. GI: Abdomen is non-distended, Bowel sounds present X 4 quads. : No signs and/or symptoms were reported regarding the genitourinary system. Derm: Skin is dry, Skin is normal, Skin temperature is warm. Musculoskeletal: Circulation, motion, and sensation intact. 23:45 Reassessment: Patient and/or family updated on plan of care and expected duration. Pain ea level reassessed. Patient is alert, oriented x 3, equal unlabored respirations, skin warm/dry/pink. Pt taken to CT. 23:59 Reassessment: Patient and/or family updated on plan of care and expected duration. Pain ea level reassessed. Patient is alert, oriented x 3, equal unlabored respirations, skin warm/dry/pink. Pt returned from CT. 10/21 01:24 Reassessment: Patient and/or family updated on plan of care and expected duration. Pain ea level reassessed. Patient is alert, oriented x 3, equal unlabored respirations, skin warm/dry/pink. Pt resting with eyes closed, respirations even and unlabored. Chest expansions even and symmetrical. Family at bedside. No s/s of pain or discomfort noted at this time. 02:03 Reassessment: Patient and/or family updated on plan of care and expected duration. Pain ea level reassessed. Patient is alert, oriented x 3, equal unlabored respirations, skin warm/dry/pink. Discharge instructions given to patient, verbalized the understanding of instruction. Pt discharged home ambulatory accompanied by family. Patient states feeling better. Vital Signs: 10/20 22:50 BP 114 / 60; Pulse 56; Resp 16 S; Temp 98(O); Pulse Ox 99% on R/A; Weight 73.48 kg (R); bb Height 5 ft. 8 in. (172.72 cm) (R); Pain 10/10; 23:54 BP 103 / 48; Pulse 52; Resp 18; Pulse Ox 98% on R/A; Pain 4/10; ea 10/21 00:30 BP 109 / 57; Pulse 57; Resp 18; Pulse Ox 99% on R/A; Pain 2/10; ea 01:48 BP 117 / 58; Pulse 52; Resp 18; Pulse Ox 98% on R/A; Pain 0/10; ea 01:55 Temp 98.2; ea 10/20 22:50 Body Mass Index 24.63 (73.48 kg, 172.72 cm) kelvin ED Course: 10/20 22:41 Patient arrived in ED. es 22:45 Renetta Baca is Private Physician. es 22:50 Triage completed. bb 22:50 Arm band placed on Patient placed in an exam room, on a stretcher, on pulse oximetry. bb Family accompanied patient. 22:51 Cm Layton NP is PHCP. pm1 22:51 Jack Chao MD is Attending Physician. pm1 23:01 Sonia Gan RN is Primary Nurse. ea 23:16 Inserted saline lock: 22 gauge in right antecubital area, using aseptic technique. ea Blood collected. 23:27 Patient has correct armband on for positive identification. Bed in low position. Call ea light in reach. Side rails up X2. 23:51 CT completed. Patient tolerated procedure well. Patient moved to CT via wheelchair. Patient moved back from CT. 10/21 00:07 CT Stone Protocol In Process Unspecified. EDMS 02:05 No provider procedures requiring assistance completed. IV discontinued, intact, ea bleeding controlled, No redness/swelling at site. Pressure dressing applied. Administered Medications: 10/20 23:24 Drug: Zofran 4 mg Route: IVP; Site: right antecubital; ea 10/21 00:40 Follow up: Response: No adverse reaction ea 10/20 23:25 Drug: morphine 4 mg Route: IVP; Site: right antecubital; ea 10/21 00:45 Follow up: Response: No adverse reaction; Pain is decreased ea Outcome: 01:55 Discharge ordered by . pm1 02:05 Discharged to home ambulatory, with family. ea 02:05 Condition: improved 02:05 Discharge instructions given to patient, Instructed on discharge instructions, follow up and referral plans. Demonstrated understanding of instructions, follow-up care. 02:07 Patient left the ED. ea Signatures: Dispatcher [employer] EDKS Danitza Boyer Ervin Andreea Castellano RN RN bb Cm Layton NP SENIOUR INSIGHT MANAGER pm1 Malik Sonia, RN RN ea
--- NOTE | 2017-10-21 01:55 | EDPHYS ---
Physician Documentation [facility] Name: Sofia Syed Age: 62 yrs Sex: Female : 1955 Arrival Date: 10/20/2017 Time: 22:41 Bed 18 Private MD: Renetta Baca ED Physician Jack Chao HPI: 10/20 23:50 This 62 yrs old Female presents to ER via Ambulatory with complaints of Right pm1 Flank Pain. 23:50 The patient complains of pain in the right low back. The pain radiates to the right pm1 upper quadrant. Onset: The symptoms/episode began/occurred today, at 16:00. Modifying factors: The symptoms are alleviated by nothing. the symptoms are aggravated by nothing. Associated signs and symptoms: Pertinent positives: nausea, Pertinent negatives: dysuria, fever, vomiting. Severity of pain: in the emergency department the pain is unchanged. The patient has not experienced similar symptoms in the past. The patient has not recently seen a physician. Historical: - Allergies: 22:50 PENICILLINS; bb - Home Meds: 22:50 carvedilol 25 mg Oral tab [Active]; lisinopril-hydrochlorothiazide 20-12.5 mg Oral tab bb 1 tab once daily [Active]; - PMHx: 22:50 Diabetes - NIDDM; Dyspepsia; Hypertension; lymphedema; bb - PSHx: 22:50 brain; Cholecystectomy; bb - Immunization history:: Adult Immunizations up to date. - Social history:: Smoking status: Patient/guardian denies using tobacco, Patient/guardian denies using alcohol, street drugs. - Ebola Screening: : No symptoms or risks identified at this time. ROS: 23:50 Constitutional: Negative for fever, chills, and weight loss, Eyes: Negative for injury, pm1 pain, redness, and discharge, ENT: Negative for injury, pain, and discharge, Neck: Negative for injury, pain, and swelling, Cardiovascular: Negative for chest pain, palpitations, and edema, Respiratory: Negative for shortness of breath, cough, wheezing, and pleuritic chest pain. 23:50 : Negative for injury, bleeding, discharge, and swelling, MS/Extremity: Negative for injury and deformity, Skin: Negative for injury, rash, and discoloration. 23:50 Neuro: Negative for headache, weakness, numbness, tingling, and seizure. 23:50 Abdomen/GI: Positive for abdominal pain, nausea, of the right upper quadrant, Negative for vomiting, diarrhea. 23:50 Back: Positive for flank pain, on the right. Exam: 23:50 Constitutional: This is a well developed, well nourished patient who is awake, alert, pm1 and in no acute distress. Head/Face: Normocephalic, atraumatic. Eyes: Pupils equal round and reactive to light, extra-ocular motions intact. Lids and lashes normal. Conjunctiva and sclera are non-icteric and not injected. Cornea within normal limits. Periorbital areas with no swelling, redness, or edema. ENT: Nares patent. No nasal discharge, no septal abnormalities noted. Tympanic membranes are normal and external auditory canals are clear. Oropharynx with no redness, swelling, or masses, exudates, or evidence of obstruction, uvula midline. Mucous membranes moist. Neck: Trachea midline, no thyromegaly or masses palpated, and no cervical lymphadenopathy. Supple, full range of motion without nuchal rigidity, or vertebral point tenderness. No Meningismus. Chest/axilla: Normal chest wall appearance and motion. Nontender with no deformity. No lesions are appreciated. Cardiovascular: Regular rate and rhythm with a normal S1 and S2. No gallops, murmurs, or rubs. No pulse deficits. Respiratory: Lungs have equal breath sounds bilaterally, clear to auscultation and percussion. No rales, rhonchi or wheezes noted. No increased work of breathing, no retractions or nasal flaring. Abdomen/GI: Soft, non-tender, with normal bowel sounds. No distension or tympany. No guarding or rebound. No evidence of tenderness throughout. 23:50 Skin: Warm, dry with normal turgor. Normal color with no rashes, no lesions, and no evidence of cellulitis. MS/ Extremity: Pulses equal, no cyanosis. Neurovascular intact. Full, normal range of motion. 23:50 Back: pain, of the right mid back, tenderness, normal spinal alignment noted. 23:50 Neuro: Orientation: is normal, Motor: is normal, moves all fours. Vital Signs: 22:50 BP 114 / 60; Pulse 56; Resp 16 S; Temp 98(O); Pulse Ox 99% on R/A; Weight 73.48 kg (R); bb Height 5 ft. 8 in. (172.72 cm) (R); Pain 10/10; 23:54 BP 103 / 48; Pulse 52; Resp 18; Pulse Ox 98% on R/A; Pain 4/10; ea 10/21 00:30 BP 109 / 57; Pulse 57; Resp 18; Pulse Ox 99% on R/A; Pain 2/10; ea 01:48 BP 117 / 58; Pulse 52; Resp 18; Pulse Ox 98% on R/A; Pain 0/10; ea 01:55 Temp 98.2; ea 10/20 22:50 Body Mass Index 24.63 (73.48 kg, 172.72 cm) bb MDM: 10/20 22:53 Patient medically screened. pm1 10/21 01:53 Data reviewed: vital signs. Data interpreted: Pulse oximetry: on room air is 98 %. pm1 Interpretation: normal. Counseling: I had a detailed discussion with the patient and/or guardian regarding: the historical points, exam findings, and any diagnostic results supporting the discharge/admit diagnosis, lab results, radiology results, the need for outpatient follow up, to return to the emergency department if symptoms worsen or persist or if there are any questions or concerns that arise at home. 01:53 ED course: Patient offered pain medications and anti-nausea medications for pm1 prescription. Patient refused. 10/20 22:52 Order name: Basic Metabolic Panel; Complete Time: 23:41 pm10/20 22:52 Order name: CBC with Diff; Complete Time: 23:27 pm10/20 22:52 Order name: Hepatic Function; Complete Time: 23:41 pm10/20 22:52 Order name: Lipase; Complete Time: 23:41 pm10/20 22:52 Order name: Urine Microscopic Only; Complete Time: 23:41 pm10/20 23:16 Order name: Urine Dipstick--Ancillary (enter results); Complete Time: 23:41 mi 10/20 22:52 Order name: IV Saline Lock; Complete Time: 23:16 pm10/20 22:52 Order name: Labs collected and sent; Complete Time: 23:16 pm10/20 22:52 Order name: Urine Dipstick-Ancillary (obtain specimen); Complete Time: 23:27 pm1 10/20 22:58 Order name: CT Stone Protocol pm1 Administered Medications: 10/20 23:24 Drug: Zofran 4 mg Route: IVP; Site: right antecubital; ea 10/21 00:40 Follow up: Response: No adverse reaction ea 10/20 23:25 Drug: morphine 4 mg Route: IVP; Site: right antecubital; ea 10/21 00:45 Follow up: Response: No adverse reaction; Pain is decreased ea Disposition: 02:34 Co-signature as Attending Physician, Jack Chao MD. marco Disposition: 10/21/17 01:55 Discharged to Home. Impression: Unspecified abdominal pain. - Condition is Stable. - Discharge Instructions: Flank Pain, Adult. - Medication Reconciliation Form, Thank You Letter, Antibiotic Education, Prescription Opioid Use form. - Follow up: Emergency Department; When: As needed; Reason: Worsening of condition. Follow up: Private Physician; When: 2 - 3 days; Reason: Recheck today's complaints, Continuance of care, Re-evaluation by your physician. - Problem is new. - Symptoms have improved. Signatures: Dispatcher [employer] EDMS Jack Chao MD MD pkAndreea Reed RN RN bb Marinas, Patrick, NP CYBER INCIDENT RESPONDER pm1 Sonia Gan RN RN ea Corrections: (The following items were deleted from the chart) 01:54 01:53 ED course: Patient offered pain medications and anti-nausea medications. Patient pm1 refused. pm1 01:55 01:55 10/21/2017 01:55 Discharged to Home. Impression: Unspecified abdominal pain. pm1 Condition is Stable. Forms are Medication Reconciliation Form, Thank You Letter, Antibiotic Education, Prescription Opioid Use. Follow up: Emergency Department; When: As needed; Reason: Worsening of condition. Follow up: Private Physician; When: 2 - 3 days; Reason: Recheck today's complaints, Continuance of care, Re-evaluation by your physician. Problem is new. Symptoms have improved. pm1 02:07 01:55 10/21/2017 01:55 Discharged to Home. Impression: Unspecified abdominal pain. ea Condition is Stable. Forms are Medication Reconciliation Form, Thank You Letter, Antibiotic Education, Prescription Opioid Use. Follow up: Emergency Department; When: As needed; Reason: Worsening of condition. Follow up: Private Physician; When: 2 - 3 days; Reason: Recheck today's complaints, Continuance of care, Re-evaluation by your physician. Problem is new. Symptoms have improved. pm1
[2017-10-21 02:15] VITALS: BP 117/58; O2SAT 98
[2017-10-21 02:16] VITALS: TEMP 98.2
--- NOTE | 2017-10-21 08:58 | RAD REPORT ---
EXAM DESCRIPTION: CT - Stone Protocol - 10/21/2017 2:43 am CLINICAL HISTORY: Abdominal pain. A preliminary written report was provided at the time of the study, and the report was reviewed prio r to final dictation. COMPARISON: CT study December 2016 TECHNIQUE: Axial 5 mm thick images were obtained without oral or IV contrast. The [id number] span s the entirety of the system include uppermost abdomen and lung bases. All CT scans are performed using dose optimization technique as appropriate and may include automated exposure control or mA/KV adjustment according to patient size. FINDINGS: No hydronephrosis is present and no obstructing ureteral calculi. No suspicious renal mass es. Posterior right and lower pole left large cysts are present and stable. Isodense masses and pyelo nephritis are not excluded on a stone protocol CT scan. Partially filled urinary bladder shows no ana picious finding. Uterus is absent. Ovaries are absent or atrophic. Pelvic floor laxity is evident. Imaged portions of the liver, spleen and pancreas show no suspicious findings on non-contrast imaging . Cholecystectomy clips are present. No biliary tree dilatation. No significant adrenal finding. No suspicious bowel findings. No mass or bulky lymphadenopathy. Small fat only periumbilical hernia is unchanged. No free air, free fluid or inflammatory stranding. No significant bony abnormality. IMPRESSION: Noncontrast CT abdomen and pelvis shows no acute finding. No significant change from the comparison. Isodense masses and pyelonephritis are not excluded on stone protocol technique.
== END 2017-10-21 02:07 | disposition home or self-care (01) ==
LOC: ER 22:37
DX: R10.9 Unspecified abdominal pain (principal); E11.9 Type 2 diabetes mellitus without complications; I10 Essential (primary) hypertension; Z79.4 Long term (current) use of insulin; Z88.0 Allergy status to penicillin
CPT/HCPCS: 36415; 74176; 76377; 80048; 80076; 81003; 81015; 83690; 85025; 96374; 96375; 99284; J2405

== ENCOUNTER 2017-11-23 13:33 | Emergency (ER) | payer OTHER ==
--- OUTSIDE RECORDS SUMMARY | 2017-11-23 13:45 | XMS REPORT | Clinical Summary ---
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 complication, without long-term current use of insulin Memory deficit THYROID STIMULATING Routine 04/23/2017 11:08 Essential Results for this HORMONE AM 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 complication, without long-term current use of insulin Memory deficit MICROALBUMIN / Routine 04/23/2017 11:08 Essential Results for this CREATININE URINE RATIO AM 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 complication, without long-term current use of insulin Memory deficit COMPREHENSIVE Routine 04/23/2017 11:08 Essential Results for this METABOLIC PANEL AM 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 Narrative Performed At Microalbumin / creatinine urine ratio (04/23/2017 11:08 AM) Creatinine, urine, random 84.7 Not Estab. mg/dL [facility] Microalbumin, urine 3.5 Not Estab. ug/mL [facility] Microalbumin/creatinine ratio 4.1 0.0 - 30.0 mg/g creat [facility] Specimen Blood Narrative Performed At Performed at: [facility] [address] [place], [id number] Environmental Journalist: Andrew Bond MD, Phone:[phone] Performing Organization Address City/State/Zipcode Phone Number [facility] Vitamin D 25 hydroxy level (04/23/2017 11:08 AM) Vitamin D, 25-hydroxy 17.7 (L) 30.0 - 100.0 ng/mL [facility] Comment: Vitamin D deficiency has been defined by the [place] of Medicine and an Endocrine Society practice guideline as a level of serum 25-OH vitamin D less than 20 ng/mL (1,2). The Endocrine Society went on to further define vitamin D insufficiency as a level between 21 and 29 ng/mL (2). 1. IOM ([place] of Medicine). 2010. Dietary reference intakes for calcium and D. [place]: The National Academies Press. 2. Eliel MF, Jayna SHAY, Tonia NEVILLE, et al. Evaluation, treatment, and prevention of vitamin D deficiency: an Endocrine Society clinical practice guideline. JCEM. 2010; 96(7):1911-30. Specimen Blood Narrative Performed At Performed at: [facility] [address] [place], [place] [id number] Environmental Journalist: Andrew Bond MD, Phone:[phone] Performing Organization Address [facility] Phone Number [facility] CBC hemogram (04/23/2017 11:08 [...] Specimen Blood Narrative Performed At Performed at: [facility] [address] [place], [place] [id number] Environmental Journalist: Andrew Bond MD, Phone:[phone] Performing Organization Address [facility] Phone Number [facility] Thyroid stimulating hormone (04/23/2017 11:08 AM) TSH 1.180 0.450 - 4.500 uIU/mL [facility] Specimen Blood Narrative Performed At Performed at:[address] [place], [place] [id number] Environmental Journalist: Andrew Bond MD, Phone:[phone] Performing Organization Address [facility] Phone Number [facility] Iron level (04/23/2017 11:08 AM) Iron level 77 27 - 139 ug/dL [facility] Specimen Blood Narrative Performed At Performed at: [id number] Environmental Journalist: Andrew Bond MD, Phone:[phone] Performing Organization Address [facility] Phone Number [facility] Hemoglobin A1c (04/23/2017 11:08 AM) Hemoglobin A1C 5.8 (H) 4.8 - 5.6 % [facility] Comment: Pre-diabetes: 5.7 - 6.4 Diabetes: >6.4 Glycemic control for adults with diabetes: <7.0 Specimen Blood Narrative Performed At Performed at: [id number] Environmental Journalist: Andrew Bond MD, Phone:[phone] Performing Organization Address [facility] Phone Number [facility] Folate level (04/23/2017 11:08 AM) Folate 10.0 >3.0 ng/mL [facility] Comment: A serum folate concentration of less than 3.1 ng/mL is considered to represent clinical deficiency. Specimen Blood Narrative Performed At Performed at: [id number] Environmental Journalist: Andrew Bond MD, Phone:[phone] Performing Organization Address [facility] Phone Number [facility] Ferritin level (04/23/2017 11:08 AM) Ferritin level 134 15 - 150 ng/mL [facility] Specimen Blood Narrative Performed At Performed at: [id number] Environmental Journalist: Andrew Bond MD, Phone:[phone] Performing Organization Address [facility] Phone Number [facility] Vitamin B12 level (04/23/2017 11:08 AM) Vitamin B12 785 232 - 1,245 pg/mL [facility] Specimen Blood Narrative Performed At Performed at:[address] [place], [place] [id number] Environmental Journalist: Andrew Bond MD, Phone:[phone] Performing Organization Address [facility] Phone Number [facility] Lipid panel (04/23/2017 11:08 AM) Cholesterol 189 100 - 199 mg/dL [facility] Triglycerides 97 0 - 149 mg/dL [facility] HDL cholesterol 64 >39 mg/dL [facility] VLDL cholesterol jimbo 19 5 - 40 mg/dL [facility] LDL cholesterol calculated 106 (H) 0 - 99 mg/dL [facility] Non-HDL cholesterol 125 0 - 129 mg/dL [facility] Specimen Blood Narrative Performed At Performed at: [facility] [address] [place], [place] [id number] Environmental Journalist: Andrew Bond MD, Phone:[phone] Performing Organization Address [facility] Phone Number [facility] Comprehensive metabolic panel (04/23/2017 11:08 AM) Glucose 103 (H) 65 - 99 mg/dL [facility] BUN, whole blood 15 8 - 27 mg/dL [facility] Creatinine 0.62 0.57 - 1.00 mg/dL [facility] EGFR Non-Afr. Sri [place]an 96 >59 mL/min/1.73 [facility] EGFR 110 >59 [...] Narrative Performed At Performed at: - [facility] [address] [place], [id number] Environmental Journalist: Andrew Bond MD, Phone:[phone] Performing Organization Address City/State/Zipcode Phone Number [facility] COLONOSCOPY-EXTERNAL (04/21/2017) Narrative Performed At after 11/22/2016 Insurance Payer Benefit Plan / Group Subscriber ID Type Phone Address AETNA AETNA HMO,POS,EPO, MC/EC xxxxxxxxxx HMO [phone] [place], [place] [id number]
[2017-11-23] MEDS ORDERED: LACTULOSE 20 GM/30 ML UCUP ONE (15:17)
[2017-11-23] MEDS ORDERED: BISACODYL 10 MG RECTAL SUPP ONE (15:17)
[2017-11-23] MEDS ORDERED: NA CHLORIDE 0.9% 500 ML ONE (15:17)
[2017-11-23 15:54] LABS: Protime INR 1.01
[2017-11-23 16:05] LABS: Absolute Lymphocytes (CBC) 0.8 K/uL (0.7-4.9); Absolute Monocytes 0.9 K/uL (0.1-1.3); Absolute Neutrophil 12.5 K/uL (1.8-8.0); Basophils % 0.3 % (0-1.3); Eosinophils % 0.3 % (0-4.4); Hematocrit 43.1 % (36.0-45.0); Lymphocytes % 5.3 % (15.3-44.8); MCH 30.3 pg (27.0-35.0); MCV 89.6 fL (80-100); MPV 10.5 fL (7.6-11.3); Monocytes % 6.4 % (3.3-12.3); RBC Red Blood Cell Count 4.81 M/uL (3.86-4.86)
[2017-11-23] MEDS ORDERED: ONDANSETRON 4 MG/2 ML VIAL ONE (16:13)
[2017-11-23 16:22] LABS: Albumin 3.9 g/dL (3.4-5.0); Bilirubin Direct 0.1 mg/dL (0-0.2); Bilirubin Total 0.7 mg/dL (0.2-1.0); CKMB Creatine Kinase MB 1.6 ng/mL (0.3-3.6); Magnesium 2.6 mg/dL (1.8-2.4); Potassium 3.9 mmol/L (3.5-5.1); Protein, Total 8.5 g/dL (6.4-8.2)
[2017-11-23] MEDS ORDERED: FENTANYL CITR 100 MCG/2 ML ONE (16:30)
[2017-11-23 16:57] LABS: Urine White Blood Cell Casts OK
[2017-11-23 16:58] LABS: Blood Morphology Comment NOT SEEN (NOT SEEN); Platelet Estimate ADEQ
--- NOTE | 2017-11-23 17:15 | RAD REPORT ---
EXAM DESCRIPTION: RAD - Chest Single View - 11/23/2017 3:22 pm CLINICAL HISTORY: Abdominal pain, abdominal distention COMPARISON: July 2017 TECHNIQUE: AP portable chest image was obtained 1518 hours . FINDINGS: No acute lung parenchymal process. Lung markings are similar to comparison. Heart and vasc ulature are normal. No measurable pleural effusion and no pneumothorax. No gross bony abnormality see n. No acute aortic findings suspected. IMPRESSION: No acute cardiopulmonary process.
[2017-11-23] MEDS ORDERED: METRONIDAZOLE 500mg IVPB 500 MG/100 ML BAG IV ONE (17:22)
[2017-11-23] MEDS ORDERED: CIPROFLOXACIN 400mg IV 400 MG/200 ML BAG IV ONE (17:22)
--- NOTE | 2017-11-23 18:08 | RAD REPORT ---
EXAM DESCRIPTION: CT - Abdomen Pelvis W Contrast - 11/23/2017 5:53 pm CLINICAL HISTORY: Abdominal pain./rectal pain COMPARISON: December 2016 TECHNIQUE: Computed axial tomography of the abdomen and pelvis was obtained. 100 cc Isovue-300 is ad ministered intravenously. Oral contrast was given. All CT scans are performed using dose optimization technique as appropriate and may include automated exposure control or mA/KV adjustment according to patient size. FINDINGS: The liver, spleen, pancreas, and adrenals appear unremarkable. Bilateral renal cysts are present. The largest extends off of the left kidney measuring 7.1 centimeters Small umbilical hernia is present The appendix is normal caliber. There is no evidence of diverticulitis A small hiatal hernia is present. The wall of the rectum is mildly thickened. A 12 x 6 millimeter low-density area is present within th e intergluteal cleft IMPRESSION: Mild thickening of the wall of the rectum may indicate a mild proctitis 12 x 6 millimeter low-density area within the intergluteal cleft may represent a small early abscess and should be correlated clinically
--- NOTE | 2017-11-23 18:42 | EDPHYS ---
Physician Documentation [facility] Name: Sofia Syed Age: 62 yrs Sex: Female : 1955 Arrival Date: 11/23/2017 Time: 13:37 Bed 27 Private MD: ED Physician Volodymyr Cancino HPI: 11/23 16:22 This 62 yrs old Female presents to ER via Wheelchair with complaints of rj Constipation. 16:22 The patient presents with abdominal pain in the lower abdomen. Onset: The rj symptoms/episode began/occurred 3 day(s) ago. The symptoms do not radiate. Associated signs and symptoms: Pertinent positives: constipation. The symptoms are described as shooting, stabbing. Modifying factors: The symptoms are alleviated by nothing, the symptoms are aggravated by no bowel movement. Severity of pain: At its worst the pain was moderate in the emergency department the pain is unchanged. The patient has not experienced similar symptoms in the past. Historical: - Allergies: 13:45 PENICILLINS; aa5 - PMHx: 13:45 Diabetes - NIDDM; Dyspepsia; Hypertension; lymphedema; aa5 - PSHx: 13:45 brain; Cholecystectomy; aa5 - Immunization history:: Adult Immunizations up to date. - Social history:: Smoking status: Patient/guardian denies using tobacco. - Ebola Screening: : No symptoms or risks identified at this time. - Family history:: not pertinent. ROS: 16:22 Constitutional: Negative for fever, chills, and weight loss, Eyes: Negative for injury, rj pain, redness, and discharge, ENT: Negative for injury, pain, and discharge, Neck: Negative for injury, pain, and swelling, Cardiovascular: Negative for chest pain, palpitations, and edema, Respiratory: Negative for shortness of breath, cough, wheezing, and pleuritic chest pain, Back: Negative for injury and pain, : Negative for injury, bleeding, discharge, and swelling, MS/Extremity: Negative for injury and deformity, Skin: Negative for injury, rash, and discoloration, Neuro: Negative for headache, weakness, numbness, tingling, and seizure, Psych: Negative for depression, anxiety, suicide ideation, homicidal ideation, and hallucinations, Allergy/Immunology: Negative for hives, rash, and allergies, Endocrine: Negative for neck swelling, polydipsia, polyuria, polyphagia, and marked weight changes, Hematologic/Lymphatic: Negative for swollen nodes, abnormal bleeding, and unusual bruising. 16:22 Abdomen/GI: Positive for constipation. Exam: 16:22 Constitutional: This is a well developed, well nourished patient who is awake, alert, jr and in no acute distress. Head/Face: Normocephalic, atraumatic. Eyes: Pupils equal round and reactive to light, extra-ocular motions intact. Lids and lashes normal. Conjunctiva and sclera are non-icteric and not injected. Cornea within normal limits. Periorbital areas with no swelling, redness, or edema. ENT: Nares patent. No nasal discharge, no septal abnormalities noted. Tympanic membranes are normal and external auditory canals are clear. Oropharynx with no redness, swelling, or masses, exudates, or evidence of obstruction, uvula midline. Mucous membranes moist. Neck: Trachea midline, no thyromegaly or masses palpated, and no cervical lymphadenopathy. Supple, full range of motion without nuchal rigidity, or vertebral point tenderness. No Meningismus. Chest/axilla: Normal chest wall appearance and motion. Nontender with no deformity. No lesions are appreciated. Cardiovascular: Regular rate and rhythm with a normal S1 and S2. No gallops, murmurs, or rubs. Normal PMI, no JVD. No pulse deficits. Respiratory: Lungs have equal breath sounds bilaterally, clear to auscultation and percussion. No rales, rhonchi or wheezes noted. No increased work of breathing, no retractions or nasal flaring. Back: No spinal tenderness. No costovertebral tenderness. Full range of motion. Female : Normal external genitalia. Skin: Warm, dry with normal turgor. Normal color with no rashes, no lesions, and no evidence of cellulitis. MS/ Extremity: Pulses equal, no cyanosis. Neurovascular intact. Full, normal range of motion. Neuro: Awake and alert, GCS 15, oriented to person, place, time, and situation. Cranial nerves II-XII grossly intact. Motor strength 5/5 in all extremities. Sensory grossly intact. Cerebellar exam normal. Normal gait. Psych: Awake, alert, with orientation to person, place and time. Behavior, mood, and affect are within normal limits. 16:22 Abdomen/GI: Inspection: abdomen appears normal, Bowel sounds: hyperactive, Palpation: mild abdominal tenderness, moderate abdominal tenderness, in the right lower quadrant and left lower quadrant, Rectal exam: Stool: guaiac negative, hemorrhoid(s), are not appreciated, mass, is not appreciated, swelling, is not appreciated, tenderness, that is moderate, fecal impaction, that is severe, the exam is chaperoned by a family member, Liver: no appreciated palpable abnormalities, Hernia: not appreciated. Vital Signs: 13:45 BP 131 / 74; Pulse 85; Resp 18 S; Temp 98.2(TE); Pulse Ox 100% on R/A; Weight 72.57 kg aa5 (R); Pain 10/10; 15:32 BP 122 / 78; Pulse 86; Resp 18; Pulse Ox 100% on R/A; Pain 0/10; mg2 16:23 BP 128 / 74; Pulse 86; Resp 17; Pulse Ox 100% on R/A; mg2 17:22 Pulse 85; Resp 18; Pulse Ox 100% on R/A; Pain 2/10; mg2 18:25 BP 126 / 78; Pulse 88; Resp 18; Pulse Ox 100% on R/A; Pain 0/10; mg2 18:31 BP 149 / 77; Pulse 70; Resp 18; Pulse Ox 100% on R/A; Pain 0/10; mg2 19:25 BP 123 / 78; Pulse 78; Resp 18; Pulse Ox 100% ; Pain 0/10; mg2 MDM: 15:03 Patient medically screened. [facility] 16:24 Data reviewed: vital signs, nurses notes, lab test result(s), EKG, radiologic studies, [facility] CT scan, plain films. 11/23 15:05 Order name: Basic Metabolic Panel; Complete Time: 17: [facility] 11/23 15:05 Order name: CBC with Diff; Complete Time: 17: [facility] 11/23 15:05 Order name: Ckmb; Complete Time: 17: [facility] 11/23 15:05 Order name: CPK; Complete Time: 17: [facility] 11/23 15:05 Order name: LFT's; Complete Time: 17: [facility] 11/23 15:05 Order name: Magnesium; Complete Time: 17: [facility] 11/23 15:05 Order name: NT PRO-BNP; Complete Time: 17: [facility] 11/23 15:05 Order name: PT-INR; Complete Time: 17:01 [facility] 11/23 15:05 Order name: Ptt, Activated; Complete Time: 17:01 [facility] 11/23 15:05 Order name: Troponin (emerg Dept Use Only); Complete Time: 17:01 [facility] 11/23 15:05 Order name: XRAY Chest (1 view); Complete Time: 17:21 [facility] 11/23 15:05 Order name: Lipase; Complete Time: 17:01 [facility] 11/23 16:10 Order name: CBC Smear Scan [facility] 11/23 16:57 Order name: Manual Differential; Complete Time: 17:01 [facility] 11/23 15:05 Order name: EKG; Complete Time: 15:06 [facility] 11/23 15:05 Order name: Cardiac monitoring; Complete Time: 15:29 [facility] 11/23 15:05 Order name: EKG - Nurse/Tech; Complete Time: 16:14 [facility] 11/23 15:05 Order name: IV Saline Lock; Complete Time: 15:30 [facility] 11/23 15:05 Order name: Labs collected and sent; Complete Time: 15:30 [facility] 11/23 15:05 Order name: O2 Per Protocol; Complete Time: 15:30 [facility] 11/23 15:05 Order name: O2 Sat Monitoring; Complete Time: 15:30 [facility] 11/23 15:05 Order name: CT Abd/Pelvis - W/Contrast; Complete Time: 18:40 [facility] 11/23 15:05 Order name: Urine Dipstick-Ancillary (obtain specimen); Complete Time: 17:28 [facility] Administered Medications: 15:29 Drug: Dulcolax Suppository 10 mg Route: LA; mg2 17:01 Follow up: Response: No adverse reaction; Marked relief of symptoms mg2 15:29 Drug: Lactulose 60 grams Volume: 45 ml; Route: PO; mg2 17:01 Follow up: Response: No adverse reaction; Marked relief of symptoms mg2 15:29 Drug: NS 0.9% 500 ml Route: IV; Rate: bolus; Site: right antecubital; mg2 17:01 Follow up: Response: No adverse reaction mg2 19:26 Follow up: Response: No adverse reaction; IV Status: Completed infusion mg2 17:00 Drug: fentaNYL (PF) 25 mcg Route: IVP; Site: right antecubital; mg2 18:46 Follow up: Response: No adverse reaction; Marked relief of symptoms mg2 17:00 Drug: Zofran 4 mg Route: IVP; Site: right antecubital; mg2 18:46 Follow up: Response: No adverse reaction mg2 17:21 Drug: Flagyl 500 mg Volume: 100 ml; Route: IVPB; Rate: 200 ml/hr; Infused Over: 30 mg2 mins; Site: right antecubital; 18:23 Follow up: IV Status: Completed infusion ss 18:46 Follow up: Response: No adverse reaction; IV Status: Completed infusion mg2 19:26 Follow up: Response: No adverse reaction; IV Status: Completed infusion mg2 18:06 Not Given (patient is pain free): fentaNYL (PF) 25 mcg IVP once mg2 18:24 Drug: Cipro 400 mg Volume: 200 ml; Route: IVPB; Infused Over: 60 mins; Site: right ss antecubital; 19:26 Follow up: Response: No adverse reaction; IV Status: Completed infusion mg2 Disposition: 11/23/17 18:41 Discharged to Home. Impression: Constipation, Left sided colitis, Elevated white blood cell count, Type 2 diabetes mellitus. - Condition is Fair. - Discharge Instructions: Constipation, Adult, How to Take a Sitz Bath, Constipation, Adult, Digw-do-Dweo, Disposable Sitz Bath, Colitis. - Prescriptions for Lactulose 10 gram/15 mL Oral Solution - take 30 milliliter by ORAL route once daily; 300 milliliter. Dulcolax 10 mg Rectal Suppository - insert 1 suppository by RECTAL route every 12 hours As needed; 10 suppository. Miralax 17 gram/dose Oral - take 1 packet by ORAL route once daily dilute powder in 8 ounces of water or juice; 14 packet. Flagyl 500 mg Oral Tablet - take 1 tablet by ORAL route every 8 hours for 7 days; 21 tablet. Cipro 500 mg Oral Tablet - take 1 tablet by ORAL route every 12 hours for 7 days; 14 tablet. - Medication Reconciliation Form, Thank You Letter, Antibiotic Education, Prescription Opioid Use form. - Follow up: Private Physician; When: 2 - 3 days; Reason: Recheck today's complaints, Continuance of care, Re-evaluation by your physician. Follow up: Ranjeet Jaquez; When: 2 - 3 days; Reason: Recheck today's complaints, Re-evaluation by your physician. Follow up: Tonny Ratliff MD; When: 2 - 3 days; Reason: Recheck today's complaints, Re-evaluation by your physician. - Problem is new. - Symptoms have improved. Signatures: Dispatcher [employer] EDVolodymyr Leiva MD MD cha Calderon, Audri RN RN aa5 Kimberly Metz RN RN ss Bigg Null RN RN mg2 Corrections: (The following items were deleted from the chart) 19:50 18:41 11/23/2017 18:41 Discharged to Home. Impression: Constipation; Left sided mg2 colitis; Elevated white blood cell count; Type 2 diabetes mellitus. Condition is Fair. Discharge Instructions: Constipation, Adult, How to Take a Sitz Bath, Constipation, Adult, [id number], Colitis. Prescriptions for Lactulose 10 gram/15 mL Oral Solution - take 30 milliliter by ORAL route once daily; 300 milliliter, Dulcolax 10 mg Rectal Suppository - insert 1 suppository by RECTAL route every 12 hours As needed; 10 suppository, Miralax 17 gram/dose Oral - take 1 packet by ORAL route once daily dilute powder in 8 ounces of water or juice; 14 packet, Flagyl 500 mg Oral Tablet - take 1 tablet by ORAL route every 8 hours for 7 days; 21 tablet, Cipro 500 mg Oral Tablet - take 1 tablet by ORAL route every 12 hours for 7 days; 14 tablet. and Forms are Medication Reconciliation Form, Thank You Letter, Antibiotic Education, Prescription Opioid Use. Follow up: Private Physician; When: 2 - 3 days; Reason: Recheck today's complaints, Continuance of care, Re-evaluation by your physician. Follow up: Ranjeet Jaquez; When: 2 - 3 days; Reason: Recheck today's complaints, Re-evaluation by your physician. Follow up: Tonny Ratliff; When: 2 - 3 days; Reason: Recheck today's complaints, Re-evaluation by your physician. Problem is new. Symptoms have improved. rj
--- NOTE | 2017-11-23 18:42 | ER ---
Nurse's Notes [facility] Name: Sofia Syed Age: 62 yrs Sex: Female : 1955 Arrival Date: 11/23/2017 Time: 13:37 Bed 27 Private MD: Diagnosis: Constipation;Left sided colitis;Elevated white blood cell count;Type 2 diabetes mellitus Presentation: 11/23 13:43 Presenting complaint: Patient states: "I am constipated and my bottom hurts (rectal aa5 pain)". Pt reports small BM 2 days ago. Pt denies N/V. Transition of care: patient was not received from another setting of care. Onset of symptoms was October 2017. Risk Assessment: Do you want to hurt yourself or someone else? Patient reports no desire to harm self or others. Initial Sepsis Screen: Does the patient meet any 2 criteria? No. Patient's initial sepsis screen is negative. Does the patient have a suspected source of infection? No. Patient's initial sepsis screen is negative. Care prior to arrival: None. 13:43 Method Of Arrival: Wheelchair aa5 13:43 Acuity: GILBERTO 3 aa5 Historical: - Allergies: 13:45 PENICILLINS; aa5 - PMHx: 13:45 Diabetes - NIDDM; Dyspepsia; Hypertension; lymphedema; aa5 - PSHx: 13:45 brain; Cholecystectomy; aa5 - Immunization history:: Adult Immunizations up to date. - Social history:: Smoking status: Patient/guardian denies using tobacco. - Ebola Screening: : No symptoms or risks identified at this time. - Family history:: not pertinent. Screenin:49 Abuse screen: Denies threats or abuse. Denies injuries from another. Nutritional iw screening: No deficits noted. Tuberculosis screening: No symptoms or risk factors identified. Fall Risk None identified. Assessment: 14:48 General: Appears uncomfortable, Behavior is calm, cooperative. Pain: Complains of pain iw in rectum. Neuro: Level of Consciousness is awake, alert, obeys commands, Oriented to person, place, time, situation, Moves all extremities. Full function. Cardiovascular: Patient's skin is warm and dry. Respiratory: Respiratory effort is even, unlabored. GI: Bowel sounds Abd is soft Reports constipation, Patient currently denies nausea, vomiting. Derm: Skin is intact, is healthy with good turgor. Musculoskeletal: Range of motion: intact in all extremities. 18:25 Reassessment: Patient appears in no apparent distress at this time. Patient and/or mg2 family updated on plan of care and expected duration. Pain level reassessed. Patient is alert, oriented x 3, equal unlabored respirations, skin warm/dry/pink. General:. 18:54 Reassessment: patient for discharge but still on antibiotic. mg2 Vital Signs: 13:45 BP 131 / 74; Pulse 85; Resp 18 S; Temp 98.2(TE); Pulse Ox 100% on R/A; Weight 72.57 kg aa5 (R); Pain 10/10; 15:32 BP 122 / 78; Pulse 86; Resp 18; Pulse Ox 100% on R/A; Pain 0/10; mg2 16:23 BP 128 / 74; Pulse 86; Resp 17; Pulse Ox 100% on R/A; mg2 17:22 Pulse 85; Resp 18; Pulse Ox 100% on R/A; Pain 2/10; mg2 18:25 BP 126 / 78; Pulse 88; Resp 18; Pulse Ox 100% on R/A; Pain 0/10; mg2 18:31 BP 149 / 77; Pulse 70; Resp 18; Pulse Ox 100% on R/A; Pain 0/10; mg2 19:25 BP 123 / 78; Pulse 78; Resp 18; Pulse Ox 100% ; Pain 0/10; mg2 ED Course: 13:37 Patient arrived in ED. mr 13:44 Triage completed. aa5 13:45 Arm band placed on. aa5 14:46 Jennifer Solo, RN is Primary Nurse. iw 14:49 Patient has correct armband on for positive identification. iw 15:03 Volodymyr Cancino MD is Attending Physician. rj 15:22 XRAY Chest (1 view) In Process Unspecified. EDMS 15:30 No provider procedures requiring assistance completed. Inserted saline lock: 20 gauge mg2 in right antecubital area, using aseptic technique. Blood collected. 16:01 EKG done, by sr technical sales consultant. reviewed by Volodymyr Cancino MD. sm3 17:[address] sw 17:53 CT Abd/Pelvis - W/Contrast In Process Unspecified. EDMS 18:41 Ranjeet Jaquez MD is Referral Physician. rj 18:41 Tonny Ratliff MD is Referral Physician. rj 19:24 IV discontinued, intact, bleeding controlled, No redness/swelling at site. Pressure mg2 dressing applied. Administered Medications: 15:29 Drug: Dulcolax Suppository 10 mg Route: DC; mg2 17:01 Follow up: Response: No adverse reaction; Marked relief of symptoms mg2 15:29 Drug: Lactulose 60 grams Volume: 45 ml; Route: PO; mg2 17:01 Follow up: Response: No adverse reaction; Marked relief of symptoms mg2 15:29 Drug: NS 0.9% 500 ml Route: IV; Rate: bolus; Site: right antecubital; mg2 17:01 Follow up: Response: No adverse reaction mg2 19:26 Follow up: Response: No adverse reaction; IV Status: Completed infusion mg2 17:00 Drug: fentaNYL (PF) 25 mcg Route: IVP; Site: right antecubital; mg2 18:46 Follow up: Response: No adverse reaction; Marked relief of symptoms mg2 17:00 Drug: Zofran 4 mg Route: IVP; Site: right antecubital; mg2 18:46 Follow up: Response: No adverse reaction mg2 17:21 Drug: Flagyl 500 mg Volume: 100 ml; Route: IVPB; Rate: 200 ml/hr; Infused Over: 30 mg2 mins; Site: right antecubital; 18:23 Follow up: IV Status: Completed infusion ss 18:46 Follow up: Response: No adverse reaction; IV Status: Completed infusion mg2 19:26 Follow up: Response: No adverse reaction; IV Status: Completed infusion mg2 18:06 Not Given (patient is pain free): fentaNYL (PF) 25 mcg IVP once mg2 18:24 Drug: Cipro 400 mg Volume: 200 ml; Route: IVPB; Infused Over: 60 mins; Site: right ss antecubital; 19:26 Follow up: Response: No adverse reaction; IV Status: Completed infusion mg2 Outcome: 18:41 Discharge ordered by . rj 19:25 Discharged to home ambulatory, with family. mg2 19:25 Condition: stable 19:25 Discharge instructions given to patient, family, friend, Instructed on discharge instructions, follow up and referral plans. medication usage, Demonstrated understanding of instructions, follow-up care, medications, Prescriptions given X 5 19:50 Patient left the ED. mg2 Signatures: Dispatcher [employer] EDVolodymyr Leiav MD MD cha Rivera, Maria mr Williams, Irene, RN RN iw Chinmay, Parisa, RN RN aa5 Kimberly Metz, RN RN Mishel Stallworth, Bigg, RN RN [facility] Jon, Dee Dee [facility]
--- NOTE | 2017-11-23 19:07 | EKG ---
Test Date: 2017-11-23 Test Time: 15:36:33 Assistant Research Scientist: JOHANA MEASUREMENT RESULTS: Intervals: Rate: 75 PA: 170 QRSD: 88 QT: 384 QTc: 428 [place]: P: 51 PA: 170 QRS: 3 T: 23 INTERPRETIVE STATEMENTS: Normal sinus rhythm Nonspecific T wave abnormality Abnormal ECG Compared to ECG 07/30/2017 15:24:08 T-wave abnormality now present Sinus bradycardia no longer present Electronically Signed On 11-23-17 19:06:23 CDT by Jerry Smith
[2017-11-23 20:08] VITALS: TEMP 98.2; O2SAT 100
[2017-11-23 20:15] VITALS: BP 123/78
== END 2017-11-23 19:50 | disposition home or self-care (01) ==
LOC: ER 13:33
DX: K59.00 Constipation, unspecified (principal); K51.50 Left sided colitis without complications; D72.829 Elevated white blood cell count, unspecified; E11.9 Type 2 diabetes mellitus without complications; I10 Essential (primary) hypertension; Z88.0 Allergy status to penicillin
CPT/HCPCS: 36415; 71045; 74177; 80048; 80076; 82550; 82553; 83690; 83735; 83880; 84484; 85025; 85610; 85730; 93005; 96361; 96365; 96367; 96375; 99284; J0744; J2405; J3010; Q9967

== ENCOUNTER 2021-11-22 10:23 | Emergency (ER) | payer OTHER ==
--- OUTSIDE RECORDS SUMMARY | 2021-11-22 10:31 | XMS REPORT | Continuity of Care Document ---
:1955 Author Organization [facility] t Address [address] [place] [address] Care Team Providers Name Role Phone Griselda Tolbert MD Primary Care Physician [phone] Griselda Tolbert MD Attending Clinician Ziggy Attending Clinician Unavailable Mikael JOSHUA, Purvi Attending Clinician Unavailable Nieves Hall RN Attending Clinician Unavailable Nathaly Hines MA Attending Clinician Unavailable Cedric Rojas DO Attending Clinician [phone] Heri Barber MA Attending Clinician Unavailable JERRY ROGERS Attending Clinician Unavailable Imani Leung MA Attending Clinician Unavailable Polly Stevenson Attending Clinician Unavailable Cyndi Ahumada MA Attending Clinician Unavailable Vicki Kitchen Attending Clinician Unavailable Katie Oh MA Attending Clinician Unavailable PERI GARCIA Attending Clinician Unavailable HEIDI ABREU Attending Clinician Unavailable KAMERON PURCELL Attending Clinician Unavailable Zuniga_F Attending Clinician Unavailable TABBY THEODORE Attending Clinician Unavailable MD JACKLYN EVERETT Attending Clinician Unavailable DO TABBY THEODORE Attending Clinician Unavailable EULALIA RAMOS Attending Clinician Unavailable YOSVANY FINNEGAN Attending Clinician Unavailable MD ALEJANDRO IBARRA Attending Clinician Unavailable MD CELSO REDDY Attending Clinician Unavailable MD YOSVANY FINNEGAN Attending Clinician Unavailable Ajibade_O_AH Attending Clinician Unavailable Nguyen_Tho Admitting Clinician Unavailable Zuniga_F Admitting Clinician Unavailable JACKLYN EVERETT Admitting Clinician Unavailable MD JACKLYN EVERETT Admitting Clinician Unavailable EULALIA RAMOS Admitting Clinician Unavailable ALEJANDRO IBARRA Admitting Clinician Unavailable MD ALEJANDRO IBARRA Admitting Clinician Unavailable Ajibadilcia_O_AH Admitting Clinician Unavailable Payers Payer Name Policy Type Policy Number Effective Date Expiration Date Frances LARA (POS) [id number] 2015 2017 00:00:00 00:00:00 [facility] [id number] 2019 [employer] 00:00:00 (MEDICARE REPLACEMENT/ADVAN TAGE - HMO) Problems Condition Condition Condition Status Onset Resolution Last Treating Co mments Source Name Details Category Date Date Treatment Clinician Date History of History of Disease Active Overview : Methodi 2019 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 07/10 diagnosed oupatient clinic/2 5 transferr ed to [facility]/ toci07/24 convalesc ent plasmaS/p HCQL pleural effusion s/p pigtail catheter 07/28 - 07/31 (s/p 4 weeks of doxy and levaquin, no culture data)Curr ently w/o chest pain, cough, dyspneaLa st Assessmen t & Plan: Formattin g of this note might be different from the original. 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 PFTs 08/2019: FEV1/FVC 85%, FEV1 75%, FVC 70%, TLC 65%, DLCO 67%Likely a sequelae of COVID pneumonia Last Assessmen t & Plan: Formattin g of this note might be different from the original. - monitor PFTs annually- albuterol prn Perirectal Perirectal Disease Active M ethodi abscess abscess 11-15 00:00: Hospita 00 l History of History of Disease Active M ethodi colonic colonic 11-15 diverticul diverticul 00:00: Ho spita itis itis 00 l Hair loss Hair loss Disease Active Overview: Methodi 11-[address] 00:00: g of this Hospita 00 note l might be different from the original. Began during COVID infection . Likely as result of big stress on bodyLast Assessmen t & Plan: Formattin g of this note might be different from the original. - recommend ed seeing Dermatolo gy History of History of Disease Active Overview : Methodi pulmonary pulmonary 11-15 Formattin s t embolus embolus 00:00: g of this Hospi ta (PE) (PE) 00 note l might be different from the original. Noted on CTA 07/2019s/p [address] Assessmen t & Plan: Formattin g of this note might be different from the original. - repeat CTA ordered Current Current Disease Active Methodi use of use of 11-15 [facility] form setter 00:00: Hosp luis anticoagul anticoagul 00 l ation ation Pulmonary Pulmonary Disease Active Overview: [facility] emboli emboli 08-[address] 00:00: g of this Hospita 00 note l might be different from the original. Detected 08/10/2019 Small filling defect within the right anterior segmental arteryLas t Assessmen t & Plan: Formattin g of this note might be different from the original. -Anticoag ulate for total 3 months-Re peat CTA in October 2019 and will re-eval need for longer a/c at that time-Rx changed to apixiban 5mg BID(she is now taking qDay) and sent to pharmacy HAP HAP Disease Active Methodi (hospital- (hospital- 08-09 st acquired acquired 00:00: Hospit a pneumonia) pneumonia) 00 l Empyema Empyema Disease Active Overview: Meth cheryl lung lung 08-[address] 00:00: g of this Hospita 00 note l might be different from the original. Left pleural space; drained with placement of pigtail catheter 07/28 - 08/01/19 Physical Physical Disease Active Metho di deconditio deconditio 08-04 st richard richard 00:00: Hospita 00 l COVID-19 COVID-19 Disease Active Metho di virus virus 07-22 detected detected 00:00: Hospit a 00 l Hypokalemi Hypokalemi Disease Active M ethodi a a 07-22 00:00: Hospita 00 l Hypomagnes Hypomagnes Disease Active M ethodi emia emia 07-22 00:00: Hospita 00 l Leukocytos Leukocytos Disease Active M ethodi is is 07-22 00:00: Hospita 00 l Type 2 Type 2 Disease Active Methodi diabetes diabetes 07-22 mellitus mellitus 00:00: Hospit a with with 00 l hyperglyce hyperglyce jorge jorge MARELY MARELY Disease Active Overview: Method i positive positive 06-[address] 00:00: g of this Hospita 00 note l might be different from the original. High MARELY titer 1:320 12/2018 and + for dsDNANo family hx of autoimmun e diseaseNo rash or joint painLast Assessmen t & Plan: Formattin g of this note might be different from the original. - repeat dsDNA and MARELY Bony Bony Disease Active Methodi abnormalit abnormalit 04-21 y y 00:00: Hospita 00 l Onychomyco Onychomyco Disease Active 2019-0 M ethodi sis sis 04-21 00:00: Hospita 00 l Diverticul Diverticul Disease Active 2019-0 M ethodi osis osis 04-21 00:00: Hospita 00 l Other Other Disease Active Methodi insomnia insomnia 04-21 00:00: Hospita 00 l Muscle Muscle Disease Active Methodi spasm spasm 1-23 st 00:00: Hospita 00 l Acute Acute Disease Active 2018-03 Methodi maxillary maxillary 05-04 sinusitis sinusitis 00:00: Hosp luis 00 l Bilateral Bilateral Disease Active 2018-03 Met hodi cataracts cataracts 05-04 00:00: Hospita 00 l Decrease Decrease Disease Active 2018-03 Metho di in in 05-04 appetite appetite 00:00: Hospit a 00 l Fatigue Fatigue Disease Active 2018-03 Methodi 05-04 00:00: Hospita 00 l Hyperlipid Hyperlipid Disease Active 2018-03 M ethodi emia emia 05-04 00:00: Hospita 00 l Injury of Injury of Disease Active 2018-03 Met hodi neck neck 05-04 00:00: Hospita 00 l Malaise Malaise Disease Active 2018-03 Methodi and and 05-04 fatigue fatigue 00:00: Hospita 00 l Type 2 Type 2 Disease Active 2018-03 [facility] diabetes diabetes 05-04 mellitus mellitus 00:00: Hospit a without without 00 l complicati complicati on on Upper Upper Disease Active 2018-03 [facility] respirator respirator 05-04 y y 00:00: Hospita infection infection 00 l Non-restor Non-restor Disease Active 2018-03 M ethodi ative ative 05-04 sleep sleep 00:00: Hospita 00 l Snoring Snoring Disease Active 2018-03 Overview: Meth cheryl 05-[address] 00:00: g of this Hospita 00 note l might be different from the original. + Morning headaches + Daytime sleepines sLast Assessmen t & Plan: Formattin g of this note might be different from the original. - sleep study ordered Gastritis Gastritis Disease Active Overview: Methodi determined determined 04-[address] by by 00:00: g of this Hospita endoscopy endoscopy 00 note l might be different from the original. 05/01/2015 No metaplasi a Colon Colon Disease Active Overview: Method i polyps polyps 04-[address] 00:00: g of this Hospita 00 note l might be different from the original. S/p polypecto my 08/2015 Generalize Generalize Disease Active Overview : Methodi d d 04-[address] abdominal abdominal 00:00: g of this H ospita pain pain 00 note l might be different from the original. 2015 s/p colonosco py /EGD by GI Dr Jaquez Seasonal Seasonal Disease Active Metho di allergic allergic 04-26 rhinitis rhinitis 00:00: Hospit a 00 l Chronic Chronic Disease Active Methodi low back low back 04-26 pain pain 00:00: Hospita without without 00 l sciatica sciatica H/O: H/O: Disease Active Methodi hysterecto hysterecto 04-26 my my 00:00: Hospita 00 l Encounter Encounter Disease Active Met hodi for for 08-12 hepatitis hepatitis 00:00: Hosp luis C C 00 l screening screening test for test for low risk low risk patient patient Esophagiti Esophagiti Disease Active Overview : Methodi s, reflux s, reflux 04-26 Formattin s t 00:00: g of this Hospita 00 note l might be different from the original. 2015 Dr Jaquez ,[place] Dyspnea Dyspnea Disease Active Overview: Meth cheryl and and 07-[address] respirator respirator 00:00: g of this Hospita y y 00 note l abnormalit abnormalit might be y y different from the original. Overview: ICD10 Diagnosis Term Vehicle Window Tinter Utility Chronic Chronic Disease Active Methodi constipati constipati st on on Hospita l Diet-contr Diet-contr Disease Active Overview : Methodi olled olled Formattin st diabetes diabetes g of this Hos angel mellitus mellitus note l might be different from the original. not longer taking medicatio n Essential Essential Disease Active Met hodi hypertensi hypertensi st on on Hospita l Allergies, Adverse Reactions, Alerts Allergy Allergy Status Severity Reaction(s) Onset Inactive Treating Comm ents Source Name Type Date Date Clinician Penicill DA Active DE [facility] [place] [facility] Penicill DA Active DE ANAPHYLAXIS [facility] 07[facility] [place] [facility] Ampicill Propensi Active Swelling 2010-03 Meth cheryl in ty to 2-12 st adverse 00:00: Hospita reaction 00 l s to drug Penicill DA Active DE [facility] 06-09 [facility] Penicill DA Active DE [facility] 06[facility]09 [place] d [facility] Penicill Propensi Active Rash Other Method i ins ty to 4-14 reaction( st adverse 00:00: s): Hospita reaction 00 Ampicilli l s to n drug ([id number]), PENICILLI N Penicill Propensi Active Rash Other Method i ins ty to 4-14 reaction( st adverse 00:00: s): Hospita reaction 00 Ampicilli l s to n drug ([id number]), PENICILLI N Family History Family Member Diagnosis Comments Start Date Stop Date Source Natural father Stroke [facility] Maternal grandfather [facility] Maternal grandmother [facility] Natural mother Diabetes [facility] Natural mother Heart disease [facility] Natural mother Hypertension [facility] Paternal grandfather [facility] Paternal grandmother [facility] Natural sister Leukemia [facility] Natural sister Breast cancer [facility] Social History Social Habit Start Date Stop Date Quantity Comments Source [facility] Alcohol intake 2021-10-22 2021-10-22 Current [facility] 00:00:00 00:00:00 non-drinker of Hospital alcohol (finding) Tobacco use and 2017-03-26 2017-03-26 Smokeless tobacco [facility] exposure 00:00:00 00:00:00 non-user Hospital Sex Ass[birth year] At [birth year] [facility] 00:00:00 00:00:00 Hospital Smoking Status Start Date Stop Date Source Never smoked tobacco [facility] Medications Ordered Filled Start Stop Current Ordering Indication Dosage Frequency Signature Comments Components Source Medication Medication Date Date Medication? Clinician (SIG) Name Name ergocalcife Yes TAKE 1 Meth cheryl rol 8-20 CAPSULE BY (VITAMIN 00:00: MOUTH ONE Hosp luis D2) 50,000 00 TIME PER l unit WEEK capsule multivit-mi Yes 1{tbl} Take 1 Me thodi n/iron/foli 7-[address] c/lutein 14:29: mouth Hospita (CENTRUM 42 daily. l SILVER WOMEN ORAL) ascorbic Yes 1000mg Q.5D Take 1,000 M ethodi acid, 7-26 mg by vitamin C, 14:29: mouth 2 Hosp luis (VITAMIN C) 42 (two) l 500 MG times a tablet day. cephalexin 2021- No [id number] 500mg Q.5D Take 1 [facility] (Keflex) 7- 08-[address] 500 MG 00:00: 04:59 (500 mg Hospita capsule 00 :00 total) by l mouth 2 (two) times a day for 10 days. lisinopriL Yes TAKE 1 Metho di (PRINIVIL) 7-[address] 40 mg 00:00: MOUTH Hospita tablet 00 EVERY DAY l hydroCHLORO 0 Yes TAKE 1 Meth cheryl thiazide 7-[address] (HYDRODIURI 00:00: (12.5 MG Ho spita L) 12.5 MG 00 TOTAL) BY l tablet MOUTH EVERY MORNING FOR 90 DAYS. spironolact 0 Yes 25mg QD Take 25 mg [facility] one 7-[address] (ALDACTONE) 00:00: daily. Hosp luis 25 MG 00 l tablet lactulose Yes [id number] TAKE 15 ML [facility] (CHRONULAC) 6-03 ([address] 10 gram/15 00:00: TOTAL) BY Ho spita mL solution 00 MOUTH 3 l (THREE) TIMES A DAY FOR 90 DAYS. lactulose 2021- No [id number] TAKE 15 ML [facility] (CHRONULAC) 5-19 06-03 ([address] 10 gram/15 00:00: 00:00 TOTAL) BY H ospita mL solution 00 :00 MOUTH 3 l (THREE) TIMES A DAY FOR 90 DAYS. metFORMIN Yes TAKE 1 Method i XR 5-[address] (GLUCOPHAGE 00:00: MOUTH Hospi ta -XR) 500 mg 00 EVERY DAY l 24 hr WITH tablet BREAKFAST pravastatin 0 3- No [id number] 20mg QD Take 1 [facility] (PravachoL) -22 04-23 tablet (20 s t 20 MG 00:00: 04:59 mg total) Hospit a tablet 00 :00 by mouth l nightly. alendronate 0 Yes [id number] 70mg Q1W Take 1 [facility] (FOSAMAX) 4-05 tablet (70 st 70 MG 00:00: mg total) Hospita tablet 00 by mouth l every 7 days. Take in the morning with a full glass of water on an empty stomach, do NOT take anything else by mouth or lie down for the next 30 min. TiZANidine Yes [id number] 2mg QD Take 1 M ethodi (Zanaflex) 07-02 capsule (2 st 2 MG 00:00: mg total) Hospita capsule 00 by mouth l nightly. venlafaxine 2022- No [id number] 75mg QD Take 1 [facility] XR (Effexor 07-[address] XR) 75 MG 00:00: 04:59 (75 mg Hospi ta 24 hr 00 :00 total) by l capsule mouth daily. lisinopriL 2021- No [id number] 40mg QD Take 1 [facility] (PRINIVIL) 07-02 tablet (40 st 40 mg 00:00: 04:59 mg total) Hospit a tablet 00 :00 by mouth l nightly. spironolact 2021- No [id number] 25mg QD Take 1 [facility] one 07-02 tablet (25 st (Aldactone) 00:00: 04:59 mg total) Hospita 25 MG 00 :00 by mouth l tablet daily for 90 days. hydroCHLORO 2021- No [id number] 12.5mg QD Take 1 [facility] thiazide 07-[address] (HYDRODIURI 00:00: 04:59 (12.5 mg H ospita L) 12.5 MG 00 :00 total) by l tablet mouth every morning for 90 days. varicella-z 2021- No [id number] .5mL Inject 0.5 Methodi jorge luis 07-[address] [id number], 00:00: 04:59 the Hospita PF, 00 :00 shoulder, l (Shingrix, thigh, or PF,) 50 buttocks mcg/0.5 mL once for 1 suspension dose. for reconstitut ion IM injection salicylic 2022- No [id number] QD Apply Me thodi acid-lactic 05-[address] acid 17 % 00:00: 05:59 daily. Hospi ta external 00 :00 l solution spironolact 2021- No [id number] 25mg QD Take 1 [facility] one 2-20 07-05 tablet (25 st (Aldactone) 00:00: 00:00 mg total) Hospita 25 MG 00 :00 by mouth l tablet daily for 90 days. multivit-mi 0 Yes 1{tbl} Take 1 Me thodi n/iron/foli 1-[address] c/lutein 10:42: mouth Hospita (CENTRUM 50 daily. l SILVER WOMEN ORAL) ascorbic 2021-0 Yes 1000mg Q.5D Take 1,000 M ethodi acid, 1-[address] vitamin C, 10:42: mouth 2 Hosp luis (ascorbic 50 (two) l acid with times a anselmo hips) day. 500 MG tablet multivit-mi 0 Yes 1{tbl} Take 1 Me thodi n/iron/foli 1-[address] c/lutein 10:42: mouth Hospita (CENTRUM 50 daily. l SILVER WOMEN ORAL) ascorbic 2021-0 Yes 1000mg Q.5D Take 1,000 M ethodi acid, 1-[address] vitamin C, 10:42: mouth 2 Hosp luis (ascorbic 50 (two) l acid with times a anselmo hips) day. 500 MG tablet TiZANidine 0 Yes [id number] 2mg QD Take 1 M ethodi (Zanaflex) 1-18 capsule (2 st 2 MG 00:00: mg total) Hospita capsule 00 by mouth l nightly. TiZANidine 2021-0 Yes [id number] 2mg QD Take 1 M ethodi (Zanaflex) 1-18 capsule (2 st 2 MG 00:00: mg total) Hospita capsule 00 by mouth l nightly. lactulose 2021- No [id number] 10g Q.77108251 Take 15 mL Methodi 10 gram/15 -18 05-19 [id number] (10 g s t mL (15 mL) 00:00: 00:00 3D total) by H ospita solution 00 :00 mouth 3 l (three) times a day for 90 days. hydroCHLORO 2021- No [id number] 12.5mg QD Take 1 [facility] thiazide -18 -[address] (HYDRODIURI 00:00: 04:59 (12.5 mg H ospita L) 12.5 MG 00 :00 total) by l tablet mouth every morning for 90 days. lisinopriL 2021- No [id number] 40mg QD Take 1 [facility] (PRINIVIL) 04-16-19 tablet (40 st 40 mg 00:00: 04:59 mg total) Hospit a tablet 00 :00 by mouth l nightly. lactulose 2021- No [id number] 10g Q.[id number] Take 15 mL Methodi 10 gram/15 04-16-19 [id number] (10 g s t mL (15 mL) 00:00: 04:59 3D total) by H ospita solution 00 :00 mouth 3 l (three) times a day for 90 days. hydroCHLORO 2021- No [id number] 12.5mg QD Take 1 [facility] thiazide 04-[address] (HYDRODIURI 00:00: 04:59 (12.5 mg H ospita L) 12.5 MG 00 :00 total) by l tablet mouth every morning for 90 days. lisinopriL 2021- No [id number] 40mg QD Take 1 [facility] (PRINIVIL) 04-16- tablet (40 st 40 mg 00:00: 04:59 mg total) Hospit a tablet 00 :00 by mouth l nightly. lactulose 2021- No [id number] 10g Q.[id number] Take 15 mL Methodi 10 gram/15 04-16-19 [id number] (10 g s t mL (15 mL) 00:00: 04:59 3D total) by H ospita solution 00 :00 mouth 3 l (three) times a day for 90 days. hydroCHLORO 2021- No [id number] 12.5mg QD Take 1 Method[facility] thiazide 04-16-[address] (HYDRODIURI 00:00: 00:00 (12.5 mg H ospita L) 12.5 MG 00 :00 total) by l tablet mouth every morning for 90 days. lisinopriL 2021- No [id number] 40mg QD Take 1 [facility] (PRINIVIL) 04-16-05 tablet (40 st 40 mg 00:00: 00:00 mg total) Hospit a tablet 00 :00 by mouth l nightly. TiZANidine 2021- No [id number] 2mg QD Take 1 [facility] (Zanaflex) 04-1605 capsule (2 st 2 MG 00:00: 00:00 mg total) Hospita capsule 00 :00 by mouth l nightly. varicella-z 2021- No [id number] .5mL Inject 0.5 Methodi jorge luis 04-16 mL into [place] [id number], 00:00: 05:59 the Hospita PF, 00 :00 shoulder, l (Shingrix, thigh, or PF,) 50 buttocks mcg/0.5 mL once for 1 suspension dose. for reconstitut ion IM injection varicella-z No [id number] .5mL Inject 0.5 Methodi jorge luis 04-16 mL into [place] [id number], 00:00: 05:59 the Hospita PF, 00 :00 shoulder, l (Shingrix, thigh, or PF,) 50 buttocks mcg/0.5 mL once for 1 suspension dose. for reconstitut ion IM injection varicella-z No [id number] .5mL Inject 0.5 Methodi jorge luis 04-16 mL into [place] [id number], 00:00: 05:59 the Hospita PF, 00 :00 shoulder, l (Shingrix, thigh, or PF,) 50 buttocks mcg/0.5 mL once for 1 suspension dose. for reconstitut ion IM injection ergocalcife 2020-03 Yes TAKE 1 Meth cheryl rol 0-[address] (VITAMIN 00:00: MOUTH ONCE Hos angel D2) 50,000 00 A WEEK l unit capsule ergocalcife 2020-03 Yes TAKE 1 Meth cheryl rol 0-[address] (VITAMIN 00:00: MOUTH ONCE Hos angel D2) 50,000 00 A WEEK l unit capsule ergocalcife 2020-03- No TAKE 1 Met hodi rol 0-22 08-[address] (VITAMIN 00:00: 00:00 MOUTH ONCE Ho spita D2) 50,000 00 :00 A WEEK l unit capsule venlafaxine 2021- No [id number] 37.5mg QD Take 1 [facility]i XR (Effexor 12-[address] XR) 37.5 MG 00:00: 04:59 (37.5 mg H ospita 24 hr 00 :00 total) by l capsule mouth daily. venlafaxine 2021- No [id number] 37.5mg QD Take 1 [facility]i XR (Effexor 12-[address] XR) 37.5 MG 00:00: 04:59 (37.5 mg H ospita 24 hr 00 :00 total) by l capsule mouth daily. venlafaxine 2021- No [id number] 37.5mg QD Take 1 [facility] XR (Effexor 12-[address] XR) 37.5 MG 00:00: 00:00 (37.5 mg H ospita 24 hr 00 :00 total) by l capsule mouth daily. SUMAtriptan 2020- No [id number] 1{spray Q2H 1 spray Methodi (Imitrex) 12-21 } into each 20 00:00: 05:59 nostril Hospita mg/actuatio 00 :00 every 2 l n nasal (two) spray hours as needed for migraine (within 30 min onset migraine) for up to 90 days. lactulose 2020- No [id number] 30g Q.[id number] Take 45 mL Methodi 10 gram/15 12-21 [id number] (30 g s t mL (15 mL) 00:00: 05:59 3D total) by H ospita solution 00 :00 mouth 3 l (three) times a day as needed (constipat ion) for up to 90 days. metoprolol 2020- No [id number] 12.5mg QD Take 0.5 Methodi succinate 12-[address] XL (Toprol 00:00: 05:59 (12.5 mg Ho spita XL) 25 mg 00 :00 total) by l 24 hr mouth tablet nightly for 90 days. SUMAtriptan 2020- No [id number] 1{spray Q2H 1 spray [facility] (Imitrex) 12-21 } into each st 20 00:00: 05:59 nostril Hospita mg/actuatio 00 :00 every 2 l n nasal (two) spray hours as needed for migraine (within 30 min onset migraine) for up to 90 days. lactulose 2020- No [id number] 30g Q.[id number] Take 45 mL Methodi 10 gram/15 12-21 [id number] (30 g s t mL (15 mL) 00:00: 05:59 3D total) by H ospita solution 00 :00 mouth 3 l (three) times a day as needed (constipat ion) for up to 90 days. metoprolol 2020- No [id number] 12.5mg QD Take 0.5 Methodi succinate 12-[address] XL (Toprol 00:00: 05:59 (12.5 mg Ho spita XL) 25 mg 00 :00 total) by l 24 hr mouth tablet nightly for 90 days. SUMAtriptan 2020- No [id number] 1{spray Q2H 1 spray [facility] (Imitrex) 12-21 } into each st 20 00:00: 05:59 nostril Hospita mg/actuatio 00 :00 every 2 l n nasal (two) spray hours as needed for migraine (within 30 min onset migraine) for up to 90 days. lactulose 2020- No [id number] 30g Q.[id number] Take 45 mL [facility] 10 gram/15 12-21 [id number] (30 g s t mL (15 mL) 00:00: 05:59 3D total) by H ospita solution 00 :00 mouth 3 l (three) times a day as needed (constipat ion) for up to 90 days. metoprolol 2020- No [id number] 12.5mg QD Take 0.5 Methodi succinate 12-[address] XL (Toprol 00:00: 05:59 (12.5 mg Ho spita XL) 25 mg 00 :00 total) by l 24 hr mouth tablet nightly for 90 days. lisinopriL 2021- No [id number] 40mg QD Take 1 [facility]i (PRINIVIL) 11-20 tablet (40 st 40 mg 00:00: 00:00 mg total) Hospit a tablet 00 :00 by mouth l daily. lisinopriL No [id number] 40mg QD Take 1 [facility] (PRINIVIL) 11-20 tablet (40 st 40 mg 00:00: 00:00 mg total) Hospit a tablet 00 :00 by mouth l daily. lisinopriL No [id number] 40mg QD Take 1 [facility] (PRINIVIL) 11-20 tablet (40 st 40 mg 00:00: 00:00 mg total) Hospit a tablet 00 :00 by mouth l daily. psyllium No [id number] 1{packe Q.5D Take 1 [facility]i (Metamucil, - 06-05 t} packet by st with 00:00: 04:59 mouth 2 Hospita sugar,) 3.4 00 :00 (two) l gram packet times a day. psyllium No [id number] 1{packe Q.5D Take 1 [facility] (Metamucil, 6- 06-05 t} packet by st with 00:00: 04:59 mouth 2 Hospita sugar,) 3.4 00 :00 (two) l gram packet times a day. psyllium No [id number] 1{packe Q.5D Take 1 [facility] (Metamucil, 6- 06-05 t} packet by st with 00:00: 04:59 mouth 2 Hospita sugar,) 3.4 00 :00 (two) l gram packet times a day. docusate No [id number] 100mg Q.5D Take 1 M ethodi sodium 08-[address] (Colace) 00:00: 04:59 (100 mg Hospi ta 100 MG 00 :00 total) by l capsule mouth 2 (two) times a day for 30 days. lactulose No [id number] 10g Q.40139492 Take 15 mL Methodi 10 gram/15 08-31 [id number] (10 g s t mL (15 mL) 00:00: 04:59 3D total) by H ospita solution 00 :00 mouth 3 l (three) times a day for 30 days. docusate 2020- No [id number] 100mg Q.5D Take 1 M ethodi sodium 08-[address] (Colace) 00:00: 04:59 (100 mg Hospi ta 100 MG 00 :00 total) by l capsule mouth 2 (two) times a day for 30 days. lactulose 2020- No [id number] 10g Q.[id number] Take 15 mL [facility]i 10 gram/15 08-31 [id number] (10 g s t mL (15 mL) 00:00: 04:59 3D total) by H ospita solution 00 :00 mouth 3 l (three) times a day for 30 days. alendronate Yes [id number] TAKE ONE [facility] (FOSAMAX) 29 (1) st 70 MG 00:00: TABLET(S) Hospita tablet 00 BY MOUTH l EVERY 7 DAYS. alendronate Yes [id number] TAKE ONE [facility] (FOSAMAX) 07-26 (1) st 70 MG 00:00: TABLET(S) Hospita tablet 00 BY MOUTH l EVERY 7 DAYS. alendronate 2021- No [id number] TAKE ONE [facility] (FOSAMAX) 07-26 (1) st 70 MG 00:00: 00:00 TABLET(S) Hospit a tablet 00 :00 BY MOUTH l EVERY 7 DAYS. metFORMIN 2021- No [id number] 500mg QD Take 1 [facility] XR 07-[address] (GLUCOPHAGE 00:00: 04:59 (500 mg Ho spita -XR) 500 mg 00 :00 total) by l 24 hr mouth tablet daily with breakfast. metFORMIN 2021- No [id number] 500mg QD Take 1 [facility] XR 07-[address] (GLUCOPHAGE 00:00: 04:59 (500 mg Ho spita -XR) 500 mg 00 :00 total) by l 24 hr mouth tablet daily with breakfast. metFORMIN 2021- No [id number] 500mg QD Take 1 [facility] XR 07-[address] (GLUCOPHAGE 00:00: 04:59 (500 mg Ho spita -XR) 500 mg 00 :00 total) by l 24 hr mouth tablet daily with breakfast. pantoprazol 2020- No 40mg QD Take 40 mg [facility] e 07-02-[address] (PROTONIX) 09:26: 00:00 daily. Hosp luis 40 MG EC 29 :00 l tablet pantoprazol 2020- No 40mg QD Take 40 mg [facility] e 07-02-[address] (PROTONIX) 09:26: 00:00 daily. Hosp luis 40 MG EC 29 :00 l tablet doxycycline 2020- No Take by Nd thodi (VIBRAMYCIN 4-05 04-[address] ) 50 mg/5 09:25: 00:00 Hospita mL syrup 53 :00 l doxycycline 2020- No Take by Nd thodi (VIBRAMYCIN 4-05 04-[address] ) 50 mg/5 09:25: 00:00 Hospita mL syrup 53 :00 l apixaban 2020- No Q.5D Take by Metho di (Eliquis) 5 4-05 04-[address] mg tablet 09:25: 00:00 (two) Hospit a 36 :00 times a l day. apixaban 2020- No Q.5D Take by Metho di (Eliquis) 5 4-05 04-[address] mg tablet 09:25: 00:00 (two) Hospit a 36 :00 times a l day. venlafaxine 2020- No [id number] 37.5mg QD Take 1 [facility] XR (Effexor -[address] XR) 37.5 MG 00:00: 00:00 (37.5 mg H ospita 24 hr 00 :00 total) by l capsule mouth daily. venlafaxine 2020- No [id number] 37.5mg QD Take 1 [facility] XR (Effexor 4-[address] XR) 37.5 MG 00:00: 00:00 (37.5 mg H ospita 24 hr 00 :00 total) by l capsule mouth daily. venlafaxine 2020- No [id number] 37.5mg QD Take 1 [facility] XR (Effexor 07-[address] XR) 37.5 MG 00:00: 00:00 (37.5 mg H ospita 24 hr 00 :00 total) by l capsule mouth daily. terbinafine 2020- No 250mg QD Take 1 [facility] HCL 07-02-[address] (LamiSIL) 00:00: 04:59 (250 mg Hosp luis 250 mg 00 :00 total) by l tablet mouth daily for 90 days. terbinafine No 250mg QD Take 1 [facility] HCL 07-[address] (LamiSIL) 00:00: 04:59 (250 mg Hosp luis 250 mg 00 :00 total) by l tablet mouth daily for 90 days. varicella-z 2020- No [id number] .5mL Inject 0.5 [facility] jorge luis 07-02- mL into st [id number]-AS01B, 00:00: 04:59 the Hospita PF, 00 :00 shoulder, l (Shingrix, thigh, or PF,) 50 buttocks mcg/0.5 mL once for 1 suspension dose. for reconstitut ion IM injection varicella-z 2020- No [id number] .5mL Inject 0.5 [facility] jorge luis 07-02-[address] gE-AS01B, 00:00: 04:59 the Hospita PF, 00 :00 shoulder, l (Shingrix, thigh, or PF,) 50 buttocks mcg/0.5 mL once for 1 suspension dose. for reconstitut ion IM injection ZOLMitripta 2020- No [id number] 2.5mg Take 1 [facility] n (Zomig) 05-[address] 2.5 MG 00:00: 00:00 (2.5 mg Hospita tablet 00 :00 total) by l mouth once as needed for migraine. May repeat in 2 hours if unresolved . Do not exceed 10 mg in 24 hours. ZOLMitripta 2020- No [id number] 2.5mg Take 1 [facility] n (Zomig) 05-[address] 2.5 MG 00:00: 00:00 (2.5 mg Hospita tablet 00 :00 total) by l mouth once as needed for migraine. May repeat in 2 hours if unresolved . Do not exceed 10 mg in 24 hours. ZOLMitripta 2020- No [id number] 2.5mg Take 1 [facility] n (Zomig) [address] 2.5 MG 00:00: 00:00 (2.5 mg Hospita tablet 00 :00 total) by l mouth once as needed for migraine. May repeat in 2 hours if unresolved . Do not exceed 10 mg in 24 hours. hydroCHLORO 2019-03- No [id number] 12.5mg QD Take 1 [facility] thiazide - 11-[address] (HYDRODIURI 00:00: 05:59 (12.5 mg H ospita L) 12.5 MG 00 :00 total) by l tablet mouth daily. hydroCHLORO 2019-03- No [id number] 12.5mg QD Take 1 [facility] thiazide 04-08-[address] (HYDRODIURI 00:00: 05:59 (12.5 mg H ospita L) 12.5 MG 00 :00 total) by l tablet mouth daily. hydroCHLORO 2019-03- No [id number] 12.5mg QD Take 1 [facility] thiazide - 11-[address] (HYDRODIURI 00:00: 05:59 (12.5 mg H ospita L) 12.5 MG 00 :00 total) by l tablet mouth daily. lisinopriL 2019-03- No [id number] 40mg QD Take 1 [facility] (PRINIVIL) 04-08 tablet (40 st 40 mg 00:00: 00:00 mg total) Hospit a tablet 00 :00 by mouth l daily. lisinopriL 2019-03- No [id number] 40mg QD Take 1 [facility] (PRINIVIL) -01 04- tablet (40 st 40 mg 00:00: 00:00 mg total) Hospit a tablet 00 :00 by mouth l daily. alendronate 2019-03- No [id number] TAKE ONE [facility] (FOSAMAX) 03-31 (1) st 70 MG 00:00: 00:00 TABLET(S) Hospit a tablet 00 :00 BY MOUTH l EVERY 7 DAYS. alendronate 2019-03- No [id number] TAKE ONE [facility] (FOSAMAX) 03-31 (1) st 70 MG 00:00: 00:00 TABLET(S) Hospit a tablet 00 :00 BY MOUTH l EVERY 7 DAYS. ergocalcife 2019-03- No [id number] Q7D Take 1 [facility] rol 0-01 10-[address] (VITAMIN 00:00: 04:59 (50,000 Hospi ta D2) 50,000 00 :00 Units l unit total) by capsule mouth once a week. ergocalcife 2019-03- No [id number] [id number] Q7D Take 1 [facility] rol 0-01 10- capsule st (VITAMIN 00:00: 04:59 (50,000 Hospi ta D2) 50,000 00 :00 Units l unit total) by capsule mouth once a week. ergocalcife 2019-03- No [id number] Q7D Take 1 [facility] rol 0-01 -[address] (VITAMIN 00:00: 04:59 (50,000 Hospi ta D2) 50,000 00 :00 Units l unit total) by capsule mouth once a week. linaCLOtide 2020-0 Yes [id number] 290ug QD Take 1 [facility] (Linzess) 6-[address] 290 mcg 00:00: (290 mcg Hospit a capsule 00 total) by l mouth daily before breakfast. linaCLOtide 2020-0 Yes [id number] 290ug QD Take 1 [facility] (Linzess) 6-[address] 290 mcg 00:00: (290 mcg Hospit a capsule 00 total) by l mouth daily before breakfast. linaCLOtide 2020-0 Yes [id number] 290ug QD Take 1 [facility] (Linzess) 6-[address] 290 mcg 00:00: (290 mcg Hospit a capsule 00 total) by l mouth daily before breakfast. albuterol 2020- No [id number] 2{puff} Q6H Inhale 2 [facility] (PROAIR 5-28 04-[address] HFA) 90 00:00: 00:00 every 6 Hospit a mcg/actuati 00 :00 (six) l on inhaler hours as needed for wheezing. albuterol 2020- No [id number] 2{puff} Q6H Inhale 2 [facility] (PROAIR 08-24 04-[address] HFA) 90 00:00: 00:00 every 6 Hospit a mcg/actuati 00 :00 (six) l on inhaler hours as needed for wheezing. blood sugar 2020 Yes [id number] Use to [facility] diagnostic - check st strips 00:00: sugar Hospita (glucose 00 daily E l blood) 11.6 strip test strips blood-gluco 2020-0 Yes [id number] Use to [facility] se meter - check st misc 00:00: sugar Hospita 00 daily E l 11.6 lancets 25 2019-0 Yes [id number] Use to M ethodi gauge misc -[address] 00:00: sugars Hospita 00 daily E l 11.6 blood sugar 2020-0 Yes [id number] Use to [facility] diagnostic 08-[address] strips 00:00: sugar Hospita (glucose 00 daily E l blood) 11.6 strip test strips blood-gluco 2019-0 Yes [id number] Use to [facility] se meter - check st misc 00:00: sugar Hospita 00 daily E l 11.6 lancets 25 2020-0 Yes [id number] Use to M ethodi gauge misc -[address] 00:00: sugars Hospita 00 daily E l 11.6 blood sugar 2020-0 Yes [id number] Use to [facility] diagnostic - check st strips 00:00: sugar Hospita (glucose 00 daily E l blood) 11.6 strip test strips blood-gluco 2020-0 Yes [id number] Use to [facility] se meter -[address] misc 00:00: sugar Hospita 00 daily E l 11.6 lancets 25 2019-0 Yes [id number] Use to M ethodi gauge misc -[address] 00:00: sugars Hospita 00 daily E l 11.6 psyllium 2019-0 2020- No [id number] .52g Q24H Take 1 Me [facility] (Metamucil) 08-17 06-[address] 0.52 gram 00:00: 00:00 (0.52 g Hosp luis capsule 00 :00 total) by l mouth daily as needed for constipati on. psyllium 2020- No [id number] .52g Q24H Take 1 [facility] (Metamucil) 08-17- capsule st 0.52 gram 00:00: 00:00 (0.52 g Hosp luis capsule 00 :00 total) by l mouth daily as needed for constipati on. nortriptyli 2020- No [id number] 10mg QD Take 1 [facility] ne 08-17-[address] (Pamelor) 00:00: 00:00 (10 mg Hospi ta 10 MG 00 :00 total) by l capsule mouth nightly. nortriptyli 2020- No [id number] 10mg QD Take 1 Method[facility] ne 08-17-[address] (Pamelor) 00:00: 00:00 (10 mg Hospi ta 10 MG 00 :00 total) by l capsule mouth nightly. ammonium Yes Apply [facility] lactate 1-[address] (AMLACTIN) 00:00: as needed Ho spita 12 % cream 00 for dry l skin. ammonium Yes Apply [facility] lactate 1-[address] (AMLACTIN) 00:00: as needed Ho spita 12 % cream 00 for dry l skin. ammonium 2021- No Apply [facility] lactate 1-23 04-[address] (AMLACTIN) 00:00: 00:00 as needed H ospita 12 % cream 00 :00 for dry l skin. Immunizations Ordered Immunization Filled Immunization Date Status Commen ts Source Name Name Camera Agroalimentos COVID-19 MRNA 2021-01-01 Completed Meth [facility]ist VACCINATION 00:00:00 [facility] PFIZER COVID-19 MRNA 2021-01-01 Completed Meth [facility]ist VACCINATION 00:00:00 [facility] PFIZER COVID-19 MRNA 2021-01-01 Completed Meth odist VACCINATION 00:00:00 [facility] FLUZONE HIGH-DOSE PF 2020-12-21 Completed Meth odist 00:00:00 [facility] FLUZONE HIGH-DOSE PF 2020-12-21 Completed Meth odist 00:00:00 [facility] FLUZONE HIGH-DOSE PF 2020-12-21 Completed Meth odist 00:00:00 [facility] Camera Agroalimentos COVID-19 MRNA 2020-11-26 Completed Meth odist VACCINATION 00:00:00 [facility] PFIZER COVID-19 MRNA 2020-11-05 Completed [facility] VACCINATION 00:00:00 Hospital Pneumococcal 2020-07-02 Completed [facility] Polysaccharide 00:00:00 Hospital Pneumococcal 2020-07-02 Completed [facility] Polysaccharide 00:00:00 [facility] Pneumococcal 2020-07-02 Completed [facility] Polysaccharide 00:00:00 [facility] FLUCELVAX QUAD PF 2019-12-[address] 00:00:00 Hospital FLUCELVAX QUAD PF 2019-12-[address] 00:00:00 Hospital FLUCELVAX QUAD PF 2019-12-[address] 00:00:00 Hospital Tdap 2018-06-08 Completed [facility] 00:00:00 Hospital Pneumococcal 2018-06-08 Completed [facility] Conjugate 13-Valent 00:00:00 Hospi bang Tdap 2018-06-08 Completed [facility] 00:00:00 [facility] Pneumococcal 2018-06-08 Completed [facility] Conjugate 13-Valent 00:00:00 Hospi bang Tdap 2018-06-08 Completed [facility] 00:00:00 Hospital Pneumococcal 2018-06-08 Completed [facility] Conjugate 13-Valent 00:00:00 Hospi bang Influenza (IM) 2013-02-04 Completed [facility] Preservative Free 00:00:00 Hospita l Influenza (IM) 2013-02-04 Completed [facility] Preservative Free 00:00:00 Hospita l Influenza (IM) 2013-02-04 Completed [facility] Preservative Free 00:00:00 Hospita l Vital Signs Vital Name Observation Time Observation Value Comments Source Systolic blood 2021-10-22 19:25:00 145 mm[Hg] [facility] pressure Diastolic blood 2021-10-22 19:25:00 70 mm[Hg] [facility] Hospital pressure Heart rate 2021-10-22 19:25:00 71 [facility] 2021-10-22 19:25:00 36.67 [facility] height 2021-10-22 19:25:00 [facility] weight 2021-10-22 19:25:00 70.761 kg [facility] BMI 2021-10-22 19:25:00 26.78 kg/m2 [facility] Oxygen saturation in 2021-10-22 19:25:00 100 /min [facility] Arterial blood by Pulse oximetry Respiratory rate 2021-05-22 18:28:00 16 /min [facility] Systolic blood 2021-04-16 16:40:00 166 mm[Hg] [facility] pressure Diastolic blood 2021-04-16 16:40:00 84 mm[Hg] [facility] pressure Heart rate 2021-04-16 16:40:00 75 /min [facility] Body temperature 2021-04-16 16:40:00 36.5 Carola [facility] Respiratory rate 2021-04-16 16:40:00 16 /min [facility] Body height 2021-04-16 16:40:00 165.1 cm [facility] Body weight 2021-04-16 16:40:00 70.761 kg [facility] BMI 2021-04-16 16:40:00 25.96 kg/m2 [facility] Oxygen saturation in 2020-12-21 17:31:00 99 /min [facility] Arterial blood by Pulse oximetry Procedures Procedure Date / Time Performing Clinician Source Performed COMPREHENSIVE METABOLIC 2021-10-22 20:30:00 Guvrinder [facility] PANEL CBC WITH PLATELET AND 2021-10-22 20:30:[address] [facility] DIFFERENTIAL URINE CULTURE 2021-10-22 19:55:00 Griselda Tolbert [facility] POC URINALYSIS DIPSTICK 2021-10-22 19:44:00 Didi [facility] SURGICAL PATHOLOGY 2021-08-27 18:32:00 Griselda Tolbert [facility] REQUEST MAMMO DIAGNOSTIC POST 2021-08-27 18:30:[address] [facility] CLIP LEFT US BREAST BIOPSY LEFT 2021-08-27 18:08:[address] [facility] US BREAST COMPLETE LEFT 2021-08-20 16:26:04 [facility] 2021-08-20 16:01:07 [facility]ESIS LEFT MAMMO BREAST SCREEN 2021-08-01 20:39:00 [place], [facility] TOMOSYNTHESIS BILATERAL XR HIP 2-3 VIEWS LEFT 2021-07-16 21:50:00 Gurvinder [facility] LIPID PANEL WITH REFLEX 2021-07-11 14:53:00 [facility] TO DIRECT LDL CBC WITH PLATELET AND 2021-07-11 14:53:00 [facility] DIFFERENTIAL THYROID STIMULATING 2021-07-11 14:53[facility] HORMONE HEMOGLOBIN A1C 2021-07-11 14:53:00 Gurvinder [facility] COMPREHENSIVE METABOLIC 2021-07-11 14:53:00 [facility] PANEL MICROALBUMIN / CREATININE 2021-07-11 14:53:00 [facility] URINE RATIO VITAMIN D 25 HYDROXY 2021-07-11 14:53:00 Gurvinder [facility] LEVEL VITAMIN B12 LEVEL 2021-07-11 14:53:00 [facility] TOTAL IRON BINDING 2021-07-11 14:53:00 [facility] CAPACITY FERRITIN LEVEL 2021-07-11 14:53:00 Gurvinder [facility] XR FOOT 3+ VW RIGHT 2021-06-03 19:19:52 Cedric Rojas [facility] Yovani HEPATITIS C ANTIBODY 2021-04-16 17:47:00 Gurvinder [facility] LIPID PANEL WITH REFLEX 2021-04-16 17:47:00 [facility] TO DIRECT LDL THYROID STIMULATING 2021-04-16 17:47:00 [facility] HORMONE COMPREHENSIVE METABOLIC 2021-04-16 17:47[facility]00 [facility] PANEL CBC WITH PLATELET AND 2021-04-16 17:47:00 [facility] DIFFERENTIAL URINALYSIS, COMPLETE, 2021-04-16 17:47:00 [facility] WITH REFLEX TO CULTURE POC GLYCOSYLATED 2021-04-16 17:28:00 [facility] HEMOGLOBIN (HGB A1C) MAMMO BREAST SCREEN 2021-01-03 16:22:15 [facility] TOMOSYNTHESIS BILATERAL BONE DENSITY 2021-01-03 15:54:46 [facility] FLUZONE HIGH-DOSE QUAD PF 2020-12-21 18:29:00 [facility] (0.7ML SYRINGE) URINALYSIS, AUTOMATED 2020-07-02 15:13:00 [facility] WITH MICROSCOPY COMPREHENSIVE METABOLIC 2020-07-02 15:13:00 [facility] PANEL CBC WITH PLATELET AND 2020-07-02 15:13:00 [facility] DIFFERENTIAL LIPID PANEL WITH REFLEX 2020-07-02 15:13:00 [facility] TO DIRECT LDL HEMOGLOBIN A1C 2020-07-02 15:13:00 [facility] THYROID STIMULATING 2020-07-02 15:13:00 [facility] HORMONE T4, FREE 2020-07-02 15:13:00 [facility] VITAMIN D 25 HYDROXY 2020-07-02 15:13:00 [facility] LEVEL VITAMIN B12 LEVEL 2020-07-02 15:13:00 [facility] PNEUMOCOCCAL 2020-07-02 15:03:00 [facility] POLYSACCHARIDE VACCINE 23-VALENT =>1YO SQ IM [id number] 2019-07-22 00:00:00 [facility] [id number] 2019-07-17 00:00:00 [facility] Plan of Care Planned Activity Planned Date Details Comments Source Future Scheduled 2021-11-16 HEPATITIS B VACCINES Met [facility] Test 20:07:13 (1 of 3 - 3-dose series) [code = HEPATITIS B VACCINES (1 of 3 - 3-dose series)] Future Scheduled 2021-11-16 SHINGLES VACCINES (1 [facility] Test 20:07:13 of 2) [code = SHINGLES VACCINES (1 of 2)] Future Scheduled 2021-11-16 DIABETES: RETINAL EYE [facility] Test 20:07:13 EXAM [code = DIABETES: RETINAL EYE EXAM] Future Scheduled 2021-11-16 COVID-19 VACCINE (4 - [facility] Test 20:07:13 Booster for Pfizer series) [code = COVID-19 VACCINE (4 - Booster for Pfizer series)] Future Scheduled 2021-11-16 INFLUENZA VACCINE [facility] Test 20:07:13 [code = INFLUENZA VACCINE] Future Scheduled 2021-11-16 [facility] Test 20:07:13 [code = DIABETIC FOOT EXAM] Future Scheduled 2021-11-16 [facility] 20:07:13 SCREENING [code = BREAST CANCER SCREENING] Future Scheduled 2021-11-16 COLONOSCOPY SCREENING [facility] Hospital Test 20:07:13 [code = COLONOSCOPY SCREENING] Future Scheduled 2021-04-25 SHINGLES VACCINES [facility] Test 08:06:36 (#1) [code = SHINGLES VACCINES (#1)] Future Scheduled 2021-04-25 DIABETES: RETINAL EYE [facility] Hospital Test 08:06:36 EXAM [code = DIABETES: RETINAL EYE EXAM] Future Scheduled 2021-04-25 COVID-19 VACCINE (2 - [facility] Hospital Test 08:06:36 Pfizer 3-dose series) [code = COVID-19 VACCINE (2 - Pfizer 3-dose series)] Future Scheduled 2021-04-25 [facility] Test 08:06:36 [code = DIABETIC FOOT EXAM] Future Scheduled 2021-04-25 BREAST CANCER [facility] Test 08:06:36 SCREENING [code = BREAST CANCER SCREENING] Future Scheduled 2021-04-25 COLONOSCOPY SCREENING [facility] Test 08:06:36 [code = COLONOSCOPY SCREENING] Future Scheduled 2021-04-25 SHINGLES VACCINES [facility] Test 08:06:36 (#1) [code = SHINGLES VACCINES (#1)] Future Scheduled 2021-04-25 DIABETES: RETINAL EYE [facility] Test 08:06:36 EXAM [code = DIABETES: RETINAL EYE EXAM] Future Scheduled 2021-04-25 COVID-19 VACCINE (2 - [facility] Test 08:06:36 Pfizer 3-dose series) [code = COVID-19 VACCINE (2 - Pfizer 3-dose series)] Future Scheduled 2021-04-25 DIABETIC FOOT EXAM [facility] Test 08:06:36 [code = DIABETIC FOOT EXAM] Future Scheduled 2021-04-25 BREAST CANCER [facility] Test 08:06:36 SCREENING [code = BREAST CANCER SCREENING] Future Scheduled 2021-04-[address] [facility] Test 08:06:36 [code = COLONOSCOPY SCREENING] Encounters Start End Encounter Admission Attending Care Care Encounter Source Date/Time Date/Time Type Type Clinicians Facility Department ID 2021-11-16 2021-11-16 Refill Gurvinderch, 1.2.840.1 [id number] [facility] 00:00:00 00:00:00 Griselda [place] [id number] 3.430.2.7 Hospit a .3.412374 l .8 2021-10-25 2021-10-25 Orders Didi, 1.2.840.1 [id number] Method[facility] 00:00:00 00:00:00 Only Griselda [place] [id number] 3.430.2.7 Hospit a .3.872652 l .8 2021-10-22 2021-10-22 Office Didi, 1.2.840.1 [id number] [facility] 14:20:00 15:26:26 Visit Griselda [place] [address]17.1.[address] 3.430.2.7 Hospit a .3.130539 l .8 2021-10-22 2021-10-22 Travel 1.2.840.1 1.2.316.434 [id number] Methodi 00:00:00 00:00:[address] 3.430.2.7 0.2.7.3.698 Ho spita .3.440248 084.8 l .8 2021-10-22 2021-10-22 Outpatient [facility] [id number] [place] 00:00:00 00:00:[address] 2021-10-21 2021-10-21 Refill [facility], 1.2.840.1 [id number] Method[facility] 00:00:00 00:00:00 Griselda [place] [address]106.1.[address] 3.430.2.7 Hospit a .3.994863 l .8 2021-10-09 2021-10-09 [facility] 7234 [place] 11:31:00 11:31:00 0713 [facility] 2021-09-03 2021-09-03 Telephone Mikael, 1.2.840.1 [id number] [id number] Methodi 00:00:00 00:00:[address] 3.430.2.7 Hospit a .3.052461 l .8 2021-08-30 2021-08-30 Refill [facility], 1.2.840.1 [id number] 2099 [id number] [facility] 00:00:00 00:00:00 Griselda [place] [address].1.[address] 3.430.2.7 Hospit a .3.427293 l .8 2021-08-27 2021-08-27 [facility], 1.2.840.1 [id number] Methodi 12:25:00 23:59:00 Encounter Griselda [place] 15870.1.[address] 3.430.2.7 Hospit a .3.100959 l .8 2021-08-27 2021-08-27 [facility], 1.2.840.1 [id number] Methodi 12:01:41 12:24:00 Encounter Griselda [place] [address]349.1.[address] 3.430.2.7 Hospit a .3.689143 l .8 2021-08-27 2021-08-27 Telephone Rafael, 1.2.840.1 [id number] Methodi 00:00:00 00:00:[address] 3.430.2.7 Hospit a .3.051590 l .8 2021-08-27 2021-08-27 Travel 1.2.840.1 [id number] Methodi 00:00:00 00:00:[address] 3.430.2.7 0.2.7.3.698 Ho spita .3.170611 084.8 l .8 2021-08-27 2021-08-27 Outpatient [facility], [facility] [id number] [place] 00:00:00 00:00:00 GRISELDA [address] 2021-08-27 2021-08-27 Outpatient [facility] [id number] [place] 00:00:00 00:00:00 GRISELDA [address] 2021-08-20 2021-08-20 [facility], 1.2.840.1 [id number] Methodi 10:23:53 23:59:00 Encounter Griselda [place] [address]7912.1.[address] 3.430.2.7 Hospit a .3.906029 l .8 2021-08-20 2021-08-20 [facility], 1.2.840.1 [id number] Methodi 10:23:15 23:59:00 Encounter Griselda [place] [address]354.1.[address] 3.430.2.7 Hospit a .3.668179 l .8 2021-08-20 2021-08-20 Telephone [place], 1.2.840.1 [id number] Methodi 00:00:00 00:00:[address] 3.430.2.7 Hospit a .3.506483 l .8 2021-08-20 2021-08-20 Travel 1.2.840.1 1.2.051.827 [id number] Methodi 00:00:00 00:00:[address] 3.430.2.7 0.2.7.3.698 Ho spita .3.263088 084.8 l .8 2021-08-20 2021-08-20 Outpatient [place], [facility] [id number] [place] 00:00:00 00:00:00 MANAR [address] 2021-08-20 2021-08-20 Outpatient [facility], [facility] [id number] [place] 00:00:00 00:00:00 MANAR [address] 2021-08-15 2021-08-15 Travel 1.2.840.1 1.2.771.578 [id number] Methodi 00:00:00 00:00:[address] 3.430.2.7 0.2.7.3.698 Ho spita .3.616770 084.8 l .8 2021-08-15 2021-08-15 Refill [place], 1.2.840.1 [id number] 2099 [id number] [facility] 00:00:00 00:00:[address] Manar [address] 3.430.2.7 Hospit a .3.760777 l .8 2021-08-02 2021-08-02 Orders [place], 1.2.840.1 [id number] 2099 075773 Methodi 00:00:00 00:00:00 Only Manar Ali 77743.1.[address] 3.430.2.7 Hospit a .3.611348 l .8 2021-08-01 2021-08-01 Outpatient [facility], [facility] [address]12 03344 [facility] 00:00:00 00:00:[address] MANAR [address] 2021-07-31 2021-07-31 Refill [place], 1.2.840.1 [id number] 2099 513454 Methodi 00:00:00 00:00:00 Manar Ali [address].1.[address] 3.430.2.7 Hospit a .3.566802 l .8 2021-07-19 2021-07-19 Orders [place], 1.2.840.1 [id number] 2099 [id number] Methodi 00:00:00 00:00:00 Only Manar Ali 04512.1.[address] 3.430.2.7 Hospit a .3.188563 l .8 2021-07-16 2021-07-16 [facility], 1.2.840.1 [id number] 394 [id number] Methodi 14:30:00 23:59:00 Encounter Griselda [place] 51299.1.[address] 3.430.2.7 Hospit a .3.146553 l .8 2021-07-16 2021-07-16 Travel 1.2.840.1 1.2.339.486 0288 [id number] Methodi 00:00:00 00:00:[address] 3.430.2.7 0.2.7.3.698 Ho spita .3.892117 084.8 l .8 2021-07-16 2021-07-16 Outpatient [facility] [id number] Cummings 00:00:00 00:00:00 GRISELDA [address] 2021-07-02 2021-07-02 Office [facility], 1.2.840.1 [id number] 2100 [id number] Methodi 08:40:00 10:03:29 Visit Griselda [place] [address]256.1.[address] 3.430.2.7 Hospit a .3.988238 l .8 2021-07-02 2021-07-02 Refill [facility], 1.2.840.1 [id number] 21 [id number] Methodi 00:00:00 00:00:[address] 3.430.2.7 Hospit a .3.738992 l .8 2021-07-02 2021-07-02 Outpatient [facility] [id number] Cummings 00:00:00 00:00:00 GRISELDA [address] 2021-06-03 2021-06-03 Office Rojas, 1.2.840.1 [id number] 82 Methodi 14:00:00 14:25:53 Visit Cedric 93263.1.[address] Yovani 3.430.2.7 Hospit a .3.119595 l .8 2021-06-03 2021-06-03 Outpatient ROJAS, [facility] [id number] 8403 Cummings 00:00:00 00:00:00 CEDRIC [address] 2021-06-03 2021-06-03 Orders Sunil, 1.2.840.1 [id number] 2099 [id number] Methodi 00:00:00 00:00:00 Only Heri 42723.1.[address] 3.430.2.7 Hospit a .3.963056 l .8 2021-06-03 2021-06-03 Travel 1.2.840.1 1.2.268.062 7591 294326 Methodi 00:00:00 00:00:[address] 3.430.2.7 0.2.7.3.698 Ho spita .3.928419 084.8 l .8 2021-06-03 2021-06-03 Orders Sunil 1.2.840.1 [id number] [id number] Methodi 00:00:00 00:00:00 Only Heri 64548.1.[address] 3.430.2.7 Hospit a .3.342582 l .8 2021-06-03 2021-06-03 Outpatient ROJAS, [facility] [id number] Cummings 00:00:00 00:00:00 CEDRIC [address] 2021-06-03 2021-06-03 Outpatient ROJAS, [facility] [id number] Cummings 00:00:00 00:00:00 CEDRIC [address] 2021-05-27 2021-05-27 Emergency E ROGERS, [facility] 7502 18:17:00 22:08:00 [facility] 2021-05-24 2021-05-24 Orders Madhu, 1.2.840.1 [id number] Methodi 00:00:00 00:00:00 Only Imani 57519.1.[address] 3.430.2.7 Hospit a .3.793976 l .8 2021-05-22 2021-05-22 Office Didi, 1.2.840.1 [id number] 2099255 Methodi 12:20:00 13:12:35 Visit Griselda [place] [address]09.1.[address] 3.430.2.7 Hospit a .3.339405 l .8 2021-05-22 2021-05-22 Travel 1.2.840.1 1.2.401.393 6159 028660 Methodi 00:00:00 00:00:[address] 3.430.2.7 0.2.7.3.698 Ho spita .3.113767 084.8 l .8 2021-05-22 2021-05-22 Outpatient [facility] [id number] 255 Cummings 00:00:00 00:00:[address] 2021-04-19 2021-04-19 Telephone Graham, 1.2.840.1 [id number] 2 [id number] Methodi 00:00:00 00:00:[address] 3.430.2.7 Hospit a .3.857789 l .8 2021-04-19 2021-04-19 Telephone Graham, 1.2.840.1 [id number] 2 [id number] Methodi 00:00:00 00:00:[address] 3.430.2.7 Hospit a .3.475784 l .8 2021-04-16 2021-04-16 Office Harmmelissa, 1.2.840.1 [id number] 2099 [id number] Methodi 10:40:00 11:41:16 Visit Griselda [place] 04109.1.[address] 3.430.2.7 Hospit a .3.839228 l .8 2021-04-16 2021-04-16 Office Harmouch, 1.2.840.1 [id number] 2099602 Methodi 10:36:17 11:41:16 Visit Griselda [place] [address]12.1.[address] 3.430.2.7 Hospit a .3.205339 l .8 2021-04-16 2021-04-16 Refill Gurvinderch, 1.2.840.1 [id number] 2099 327057 Methodi 00:00:00 00:00:00 Griselda [place] [address]857.1.[address] 3.430.2.7 Hospit a .3.594699 l .8 2021-04-16 2021-04-16 Travel 1.2.840.1 1.2.771.927 4064 494872 Methodi 00:00:00 00:00:[address] 3.430.2.7 0.2.7.3.698 Ho spita .3.711099 084.8 l .8 2021-04-16 2021-04-16 Refill [place], 1.2.840.1 [id number] 2099 [id number] Methodi 00:00:00 00:00:00 Griselda [place] [address]17.1.[address] 3.430.2.7 Hospit a .3.164496 l .8 2021-04-16 2021-04-16 Travel 1.2.840.1 1.2.269.919 1059 287783 Methodi 00:00:00 00:00:[address] 3.430.2.7 0.2.7.3.698 Ho spita .3.561974 084.8 l .8 2021-04-08 2021-04-08 Travel 1.2.840.1 1.2.133.789 7328 209733 Methodi 00:00:00 00:00:[address] 3.430.2.7 0.2.7.3.698 Ho spita .3.201429 084.8 l .8 2021-04-08 2021-04-08 Travel 1.2.840.1 1.2.644.107 7898 822962 Methodi 00:00:00 00:00:[address] 3.430.2.7 0.2.7.3.698 Ho spita .3.757950 084.8 l .8 2021-01-18 2021-01-18 Refill [place], 1.2.840.1 [id number] 2099352 Methodi 00:00:00 00:00:[address]32.1.[address] 3.430.2.7 Hospit a .3.460045 l .8 2021-01-18 2021-01-18 Orders Harmouch, 1.2.840.1 [id number] 2099352 Methodi 00:00:00 00:00:00 Only Manar Ali 68430.1.[address] 3.430.2.7 Hospit a .3.492924 l .8 2021-01-18 2021-01-18 Refill Harmouch, 1.2.840.1 [id number] 2099352 Methodi 00:00:00 00:00:00 Saular Ali 52403.1.[address] 3.430.2.7 Hospit a .3.361649 l .8 2021-01-18 2021-01-18 Orders Harmouch, 1.2.840.1 [id number] 2099352 Methodi 00:00:00 00:00:00 Only Manar Ali 57607.1.[address] 3.430.2.7 Hospit a .3.536540 l .8 2021-01-17 2021-01-17 [facility], 1.2.840.1 [id number] 575 [id number] Methodi 12:13:55 23:59:00 Encounter Manar Ali 77161.1.[address] 3.430.2.7 Hospit a .3.761056 l .8 2021-01-17 2021-01-17 [facility], 1.2.840.1 [id number] 309 [id number] Methodi 12:13:55 23:59:00 Encounter Manar Ali 48994.1.[address] 3.430.2.7 Hospit a .3.220224 l .8 2021-01-17 2021-01-17 [facility], 1.2.840.1 [id number] 674 [id number] Methodi 12:13:53 23:59:00 Encounter Manar Ali 50772.1.[address] 3.430.2.7 Hospit a .3.807500 l .8 2021-01-17 2021-01-17 [facility], 1.2.840.1 [id number] 081 [id number] Methodi 12:13:53 23:59:00 Encounter Griselda Ali 95092.1.[address] 3.430.2.7 Hospit a .3.190943 l .8 2021-01-17 2021-01-17 [facility], 1.2.840.1 [id number] 717 [id number] Methodi 12:13:41 23:59:00 Encounter Saular Ali 67966.1.[address] 3.430.2.7 Hospit a .3.806633 l .8 2021-01-17 2021-01-17 [facility], 1.2.840.1 [id number] 551 [id number] Methodi 12:13:41 23:59:00 Encounter Griselda Ali 81913.1.[address] 3.430.2.7 Hospit a .3.282836 l .8 2021-01-17 2021-01-17 [facility], 1.2.840.1 [id number] 029 [id number] Methodi 12:12:15 12:12:15 Encounter Griselda Ali 44007.1.[address] 3.430.2.7 Hospit a .3.863775 l .8 2021-01-17 2021-01-17 [facility], 1.2.840.1 [id number] 371 [id number] Methodi 12:12:15 12:12:15 Encounter Griselda Ali 25893.1.[address] 3.430.2.7 Hospit a .3.759686 l .8 2021-01-17 2021-01-17 [facility], 1.2.840.1 [id number] 982 [id number] Methodi 12:12:13 12:12:13 Encounter Griselda Ali 38693.1.[address] 3.430.2.7 Hospit a .3.995343 l .8 2021-01-17 2021-01-17 [facility], 1.2.840.1 [id number] 924 [id number] Methodi 12:12:13 12:12:13 Encounter Saular Ali 33748.1.[address] 3.430.2.7 Hospit a .3.555338 l .8 2021-01-17 2021-01-17 [facility], 1.2.840.1 [id number] 598 [id number] Methodi 12:11:51 12:11:51 Encounter Saular Ali 20405.1.[address] 3.430.2.7 Hospit a .3.522499 l .8 2021-01-17 2021-01-17 [facility], 1.2.840.1 [id number] 2100 261403 Methodi 00:00:00 00:00:00 Only Saular Ali 38374.1.[address] 3.430.2.7 Hospit a .3.846151 l .8 2021-01-17 2021-01-17 [facility], 1.2.840.1 [id number] 713 [id number] Cummings 00:00:00 00:00:00 Encounter GRISELDA 32397.1.1 [address] .3.524403 .8 2021-01-17 2021-01-17 [facility], 1.2.840.1 [id number] 2100 [id number] Methodi 00:00:00 00:00:00 Only Saular Ali 72512.1.[address] 3.430.2.7 Hospit a .3.850032 l .8 2021-01-03 2021-01-03 [facility], 1.2.840.1 [id number] 039 [id number] Methodi 10:28:09 23:59:00 Encounter Saular Ali 50496.1.[address] 3.430.2.7 Hospit a .3.221906 l .8 2021-01-03 2021-01-03 [facility], 1.2.840.1 [id number] 765 [id number] Methodi 10:27:49 10:27:49 Encounter Saular Ali 51288.1.[address] 3.430.2.7 Hospit a .3.555628 l .8 2021-01-03 2021-01-03 Travel 1.2.840.1 1.2.486.901 7988 867912 Methodi 00:00:00 00:00:[address] 3.430.2.7 0.2.7.3.698 Ho spita .3.838047 084.8 l .8 2021-01-03 2021-01-03 [facility], 1.2.840.1 [id number] 405 [id number] Cummings 00:00:00 00:00:00 Encounter MANAR 80514.1.1 [address] .3.872347 .8 2021-01-03 2021-01-03 [facility] 1.2.840.1 [id number] 654 [id number] Cummings 00:00:00 00:00:00 Encounter MANAR 22790.1.1 [address] .3.685692 .8 2021-01-03 2021-01-03 Travel 1.2.840.1 1.2.503.787 3864 394640 Methodi 00:00:00 00:00:[address] 3.430.2.7 0.2.7.3.698 Ho spita .3.922039 084.8 l .8 2021-01-01 2021-01-01 Clinical 1.2.840.1 [id number] Methodi 11:08:58 11:24:[address] 3.430.2.7 Hospit a .3.047631 l .8 2021-01-01 2021-01-01 Clinical 1.2.840.1 [id number] Methodi 10:35:00 11:24:[address] 3.430.2.7 Hospit a .3.000341 l .8 2021-01-01 2021-01-01 [facility], 1.2.840.1 [id number] 21 [id number] Methodi 00:00:00 00:00:00 Griselda [place] 08346.1.[address] 3.430.2.7 Hospit a .3.554147 l .8 2021-01-01 2021-01-01 Travel 1.2.840.1 1.2.934.575 8337 766539 Methodi 00:00:00 00:00:[address] 3.430.2.7 0.2.7.3.698 Ho spita .3.094043 084.8 l .8 2021-01-01 2021-01-01 Telephone [facility], 1.2.840.1 [id number] 21 [id number] Methodi 00:00:00 00:00:00 Griselda [place] 71592.1.[address] 3.430.2.7 Hospit a .3.265931 l .8 2021-01-01 2021-01-01 Travel 1.2.840.1 1.2.772.415 5880 703837 Methodi 00:00:00 00:00:[address] 3.430.2.7 0.2.7.3.698 Ho spita .3.945929 084.8 l .8 2020-12-21 2020-12-21 Office [facility], 1.2.840.1 [id number] 2099 937282 Methodi 11:45:56 13:29:19 Visit Griselda [place] [address]809.1.[address] 3.430.2.7 Hospit a .3.500410 l .8 2020-12-21 2020-12-21 Office [place], 1.2.840.1 [id number] 2099 888909 Methodi 11:40:00 13:29:19 Visit Griselda [place] [address]992.1.[address] 3.430.2.7 Hospit a .3.767582 l .8 2020-12-21 2020-12-21 Travel 1.2.840.1 1.2.860.053 1800 952913 Methodi 00:00:00 00:00:[address] 3.430.2.7 0.2.7.3.698 Ho spita .3.240317 084.8 l .8 2020-12-21 2020-12-21 Travel 1.2.840.1 1.2.857.879 0200 871509 Methodi 00:00:00 00:00:[address] 3.430.2.7 0.2.7.3.698 Ho spita .3.470929 084.8 l .8 2020-11-19 2020-11-19 Refill [facility], 1.2.840.1 [id number] 2100 083157 Methodi 00:00:00 00:00:00 Griselda [place] [address]138.1.[address] 3.430.2.7 Hospit a .3.775010 l .8 2020-11-19 2020-11-19 Travel 1.2.840.1 1.2.214.634 4897 228109 Methodi 00:00:00 00:00:[address] 3.430.2.7 0.2.7.3.698 Ho spita .3.374360 084.8 l .8 2020-11-19 2020-11-19 Refill [place], 1.2.840.1 [id number] 2100 955846 Methodi 00:00:00 00:00:00 Griselda [place] [address]89.1.[address] 3.430.2.7 Hospit a .3.216346 l .8 2020-11-14 2020-11-14 Orders Harmouch, 1.2.840.1 [id number] 2099 442449 Methodi 00:00:00 00:00:00 Only Griselda [place] [address]5640.1.[address] 3.430.2.7 Hospit a .3.471553 l .8 2020-11-14 2020-11-14 Telephone Brandyn, 1.2.840.1 [id number] 2099 938892 Methodi 00:00:00 00:00:00 Cyndi Caballero 69958.1.1 [address] 3.430.2.7 Hospit a .3.979771 l .8 2020-10-18 2020-10-18 Travel 1.2.840.1 1.2.134.811 2536 596937 Methodi 00:00:00 00:00:[address] 3.430.2.7 0.2.7.3.698 Ho spita .3.977859 084.8 l .8 2020-09-27 2020-09-27 Outpatient [facility] 7234 [place] 10:14:00 10:14:00 0701 [facility] 2020-08-31 2020-08-31 Office [facility], 1.2.840.1 [id number] Methodi 09:17:36 10:24:00 Visit Griselda [place] [address]186.1.[address] 3.430.2.7 Hospit a .3.575143 l .8 2020-08-31 2020-08-31 Travel 1.2.840.1 1.2.992.142 7888 226196 Methodi 00:00:00 00:00:[address] 3.430.2.7 0.2.7.3.698 Ho spita .3.271106 084.8 l .8 2020-08-14 2020-08-14 Travel 1.2.840.1 1.2.360.036 3849 833998 Methodi 00:00:00 00:00:[address] 3.430.2.7 0.2.7.3.698 Ho spita .3.114295 084.8 l .8 2020-08-08 2020-08-08 Travel 1.2.840.1 1.2.527.962 2819 507236 Methodi 00:00:00 00:00:[address] 3.430.2.7 0.2.7.3.698 Ho spita .3.868903 084.8 l .8 2020-07-26 2020-07-26 Refill Didi, 1.2.840.1 585750392 2099 267505 Methodi 00:00:00 00:00:00 Griselda [place] [address]01.1.[address] 3.430.2.7 Hospit a .3.717381 l .8 2020-07-23 2020-07-23 Telephone Imtiaz, 1.2.840.1 [id number] 747 1067774 Methodi 00:00:00 00:00:[address] 3.430.2.7 Hospit a .3.472123 l .8 2020-07-23 2020-07-23 Travel 1.2.840.1 1.2.674.680 6519 775899 Methodi 00:00:00 00:00:[address] 3.430.2.7 0.2.7.3.698 Ho spita .3.264359 084.8 l .8 2020-07-23 2020-07-23 Telephone Adriano, 1.2.840.1 [id number] 2099 663193 Methodi 00:00:00 00:00:[address] 3.430.2.7 Hospit a .3.973828 l .8 2020-07-17 2020-07-17 Telephone Didi, 1.2.840.1 [id number] [id number] Methodi 00:00:00 00:00:00 Griselda [place] [address].1.[address] 3.430.2.7 Hospit a .3.751163 l .8 2020-07-17 2020-07-17 Travel 1.2.840.1 1.2.332.350 9134 520220 Methodi 00:00:00 00:00:[address] 3.430.2.7 0.2.7.3.698 Ho spita .3.429388 084.8 l .8 2020-07-10 2020-07-10 Travel 1.2.840.1 1.2.893.815 0108 867633 Methodi 00:00:00 00:00:[address] 3.430.2.7 0.2.7.3.698 Ho spita .3.978217 084.8 l .8 2020-07-09 2020-07-09 Orders [facility], 1.2.840.1 [id number] 2099 118252 Methodi 00:00:00 00:00:00 Only Griselda [place] 66746.1.[address] 3.430.2.7 Hospit a .3.742655 l .8 2020-07-02 2020-07-02 [facility] 1.2.840[facility]1 [id number] 2099 116565 Methodi 08:44:43 10:02:54 Visit Griselda [place] [address]9536.1.[address] 3.430.2.7 Hospit a .3.729004 l .8 2020-07-02 2020-07-02 Telephone [place], 1.2.840.1 [id number] 2099 117630 Methodi 00:00:00 00:00:00 Cyndi Caballero 01058.1.1 708 s t 3.430.2.7 Hospit a .3.714414 l .8 2020-07-02 2020-07-02 Travel 1.2.840.1 1.2.454.803 7411 060376 Methodi 00:00:00 00:00:[address] 3.430.2.7 0.2.7.3.698 Ho spita .3.595521 084.8 l .8 2020-06-15 2020-06-15 [facility] 1.2.840.1 [id number] Methodi 00:00:00 00:00:00 Griselda [place] [address].1.[address] 3.430.2.7 Hospit a .3.915294 l .8 2020-05-02 2020-05-02 Orders [place], 1.2.840.1 [id number] 2100 565671 Methodi 00:00:00 00:00:00 Only Griselda [place] 99011.1.[address] 3.430.2.7 Hospit a .3.154296 l .8 2020-04-27 2020-04-27 Outpatient HARMOUCH, [facility] [id number] Cummings 00:00:00 00:00:00 SAULAR [address] 2020-04-27 2020-04-27 Outpatient HARMOUCH, [facility] [id number] Cummings 00:00:00 00:00:00 GRISELDA [address] 2020-04-27 2020-04-27 Outpatient GARCIA, [facility] [id number] Cummings 00:00:00 00:00:[address] 2020-02-07 2020-02-07 Outpatient HARMOUCH, [facility] [id number] Cummings 00:00:00 00:00:00 GRISELDA [address] 2020-01-24 2020-01-24 Outpatient [facility] [id number] Cummings 00:00:00 00:00:[address] 2020-01-19 2020-01-19 Outpatient ABREU, [facility] [id number] Cummings 00:00:00 00:00:00 HEIDI [address] 2020-01-19 2020-01-19 Outpatient ABREU, [facility] [id number] 179 Cummings 00:00:00 00:00:00 HEIDI [address] 2020-01-19 2020-01-19 Outpatient ABREU, [facility] [id number] Cummings 00:00:00 00:00:00 HEIDI [address] 2020-01-19 2020-01-19 Outpatient ABREU, [facility] [id number] Cummings 00:00:00 00:00:00 HEIDI [address] 2019-12-29 2019-12-29 Outpatient HARMOUCH, [facility] [id number] Cummings 00:00:00 00:00:00 MANAR [address] 2019-12-16 2019-12-16 Outpatient ZAHIRUDDIN, [facility] [id number] Cummings 00:00:00 00:00:00 KAMERON [address] 2019-12-14 2019-12-14 Outpatient [facility] [id number] Cummings 00:00:00 00:00:[address] 2019-11-16 2019-11-16 Outpatient HARMOUCH, [facility] [id number] Cummings 00:00:00 00:00:00 MANAR [address] 2019-11-07 2019-11-07 Outpatient HARMOUCH, [facility] [id number] Cummings 00:00:00 00:00:00 MANAR [address] 2019-11-03 2019-11-03 Outpatient [facility] PDPFDRS [facility] 00:00:00 00:00:00 BIN-202003302019-11-01 2019-11-01 Outpatient ZAHIRUDDIN, [facility] [id number] Cummings 00:00:00 00:00:00 KAMERON [address] 2019-10-04 2019-10-04 Outpatient HARMOUCH, [facility] [id number] Cummings 00:00:00 00:00:00 MANAR [address] 2019-09-28 2019-09-28 Outpatient HARMOUCH, [facility] [id number] Cummings 00:00:00 00:00:00 MANAR [address] 2019-09-23 2019-09-23 Outpatient HARMOUCH, [facility] [id number] Cummings 00:00:00 00:00:00 MANAR [address] 2019-09-21 2019-09-21 Outpatient HARMOUCH, [facility] [id number] Cummings 00:00:00 00:00:00 MANAR [address] 2019-09-20 2019-09-20 Outpatient ZAHIRUDDIN, [facility] [id number] Cummings 00:00:00 00:00:00 KAMERON [address] 2019-09-16 2019-09-16 Outpatient HARMOUCH, [facility] [id number] Cummings 00:00:00 00:00:00 MANAR [address] 2019-09-15 2019-09-15 Outpatient Zuniga_F [facility] 7988-2 0200 [place] 12:55:00 12:55:00 [facility] 2019-09-14 2019-09-14 Outpatient Zuniga_F [facility] 7988-2 0200 [place] 10:21:00 10:21:00 [facility] 2019-09-14 2019-09-14 Outpatient ZAHIRUDDIN, [facility] [id number] Cummings 00:00:00 00:00:00 KAMERON [address] 2019-09-14 2019-09-14 Outpatient [facility] [id number] Cummings 00:00:00 00:00:[address] 2019-09-12 2019-09-12 Outpatient HARMOUCH, [facility] [id number] Cummings 00:00:00 00:00:00 MANAR [address] 2019-09-09 2019-09-09 Outpatient HARMOUCH, [facility] [id number] Cummings 00:00:00 00:00:00 MANAR [address] 2019-09-06 2019-09-06 Outpatient HARMOUCH, [facility] [id number] Cummings 00:00:00 00:00:00 MANAR [address] 2019-09-06 2019-09-06 Outpatient HARMOUCH, [facility] [id number] Cummings 00:00:00 00:00:00 MANAR [address] 2019-09-06 2019-09-06 Outpatient HARMOUCH, [facility] [id number] Cummings 00:00:00 00:00:00 MANAR [address] 2019-09-02 2019-09-02 Outpatient HARMOUCH, [facility] [id number] Cummings 00:00:00 00:00:00 MANAR [address] 2019-08-26 2019-08-26 Outpatient HARMOUCH, [facility] [id number] Cummings 00:00:00 00:00:00 MANAR [address] 2019-08-24 2019-08-24 Outpatient HARMOUCH, [facility] [id number] [facility] 00:00:00 00:00:00 MANAR [address] 2019-08-24 2019-08-24 Outpatient HARMOUCH, [facility] [id number] [facility] 00:00:00 00:00:00 MANAR [address] 2019-08-24 2019-08-24 Outpatient HARMOUCH, [facility] [id number] [facility] 00:00:00 00:00:00 MANAR [address] 2019-08-18 2019-08-18 Outpatient HARMOUCH, [facility] [id number] [facility] 00:00:00 00:00:00 MANAR [address] 2019-08-10 2019-08-12 Inpatient MCCARTAN, [facility] [id number] [facility] 00:00:00 00:00:00 TABBY [address] 2019-07-17 2019-08-10 Inpatient HCAMN SHAVON [id number] [address] [facility] 03:46:00 09:13:20 81 [facility] 2019-08-04 2019-08-05 Inpatient NOOR, [facility] [id number] [facility] 00:00:00 00:00:00 EULALIA [address] 2019-07-23 2019-08-04 Inpatient SIVAN, YOSVANY [facility] 012 [id number] [facility] 00:00:00 00:00:[address] 2019-07-11 2019-07-11 Outpatient HARMOUCH, [facility] [id number] [facility] 00:00:00 00:00:00 MANAR [address] 2019-07-11 2019-07-11 Outpatient HARMOUCH, [facility] [id number] [facility] 00:00:00 00:00:00 MANAR [address] 2019-06-14 2019-06-14 Outpatient HARMOUCH, [facility] [id number] [facility] 00:00:00 00:00:00 MANAR [address] 2019-05-18 2019-05-18 Outpatient Ajibade_O_A VFP VFP [id number] [facility] 07:18:00 07:18:00 H [id number] [facility] 2019-05-18 2019-05-18 Outpatient Ajibade_O_A VFP VFP [id number] [facility] 07:18:00 07:18:00 H [id number] Family Practic e 2019-05-03 2019-05-03 Outpatient HARMOUCH, [facility] [id number] [facility] 00:00:00 00:00:00 MANAR [address] 2019-04-21 2019-04-21 Outpatient DIDI [facility] [id number] [facility] 00:00:00 00:00:00 MANAR [address] Results Test Description Test Time Test Comments Results Result Comments Source Urine culture 2021-10-24 06:51:00 Test Item Value Reference Range Interpretation Comme nts Urine culture (test SEE NOTE CULTURE , URINE, ROUTINE Micro code = 630-4) Number: [id number] Test Status: Final Specimen Source: Not given Specimen Quality: Adequate Result : Mixed genital nanci isolated. These superficial jean-paul teria are not indicative of a urinary tract infection. No f urther organism identification is warranted on this specimen. If clinically indicated, annette llect clean-catch, mi d-stream urine and transfer im mediately to Urine Culture [place] [facility]. RAC (test code = RAC) Performing Organization Information: Site ID: RGA Name: [facility] Address: [address] [place] [id number] Director: Bandar [facility] [id number] 09:25:00 Test Item Value Reference Range Interpretation Comments Glucose (test code 109 mg/dL 65-139 Non-fast ing = 2345-7) reference interval BUN (test code = 11 mg/dL 7-25 3094-0) Creatinine (test 0.68 mg/dL 0.5-1.05 code = 2160-0) eGFR (test code = See_Comment The eGFR i s based 8257) on the CKD-EPI 2020 equation. To calculate the n ew eGFR from a previous Creatinine or Cystatin Cresul t, go to [email or web address] ca lculator [Automated message] The system which generated this result transmitted reference range : > OR = 60 mL/min/1.73m2. The reference range was not used to interpr et this result as normal/abnormal . BUN/creatinine NOT APPLICABLE See_Comment [Automated ratio (test code = message] The 3097-3) system which generated this result transmitted reference range : 6 - 22 (calc). The reference range was not used to interpr et this result as normal/abnormal . Sodium (test code 142 mmol/L 135-146 = 2951-2) Potassium (test 3.7 mmol/L 3.5-5.3 code = 2823-3) Chloride (test 106 mmol/L 98-110 code = 2075-0) CO2 (test code = 32 mmol/L 20-32 2027-) Calcium (test code 9.5 mg/dL 8.6-10.4 = 79228-9) Protein (test code 6.6 g/dL 6.1-8.1 = 2885-2) Albumin, S (test 4.0 g/dL 3.6-5.1 code = 1751-7) Globulin, total See_Comment [Automated (test code = message] The 87170-6) system which generated this result transmitted reference range : 1.9 - 3.7 g/dL (calc). The reference range was not used to interpret this result as normal/abnormal . Albumin/globulin See_Comment [Automated ratio (test code = message] The ) system which generated this result transmitted reference range : 1.0 - 2.5 (calc ). The reference range was not used to interpr et this result as normal/abnormal . Total bilirubin 0.4 mg/dL 0.2-1.2 (test code = 1974-) Alkaline 80 U/L 37-153 phosphatase (test code = 6768-6) AST (test code = 15 U/L 10-35 1920-8) ALT (test code = 10 U/L 6-29 1742-6) TARA (test code = FASTING:NO FASTING: TARA) NO RAC (test code = Performing RAC) Organization Information: Site ID: RGA Name: [facility] Address: [address] [place] [id number] Director: Bandar Martinez [facility] with platelet and [id number] 09:25:00 Test Item Value Reference Range Interpretation Comments WBC (test code = See_Comment [Automated 0675-2) message] The system which generated this result transmitted reference range : 3.8 - 10.8 Thousand/uL. Th e reference range was not used to interpret this result as normal/abnormal . RBC (test code = See_Comment [Automated 749-8) message] The system which generated this result transmitted reference range : 3.80 - 5.10 Million/uL. The reference range was not used to interpret this result as normal/abnormal . HGB (test code = 12.7 g/dL 11.7-15.5 718-7) HCT (test code = 37.7 % 35-45 4544-3) MCV (test code = 87.3 fL 80-100 787-2) MCH (test code = 29.4 pg 27-33 785-6) MCHC (test code = 33.7 g/dL 32-36 786-4) RDW (test code = 12.0 % 11-15 788-0) Platelet count See_Comment [Automated (test code = message] The 777-3) system which generated this result transmitted reference range : 140 - 400 Thousand/uL. Th e reference range was not used to interpret this result as normal/abnormal . MPV (test code = 12.0 fL 7.5-12.5 776-5) Neutrophils, See_Comment [Automated absolute (test message] The code = 751-8) system which generated this result transmitted reference range : 1,500 - 7,800 cells/uL. The reference range was not used to interpret this result as normal/abnormal . Lymphocytes, See_Comment [Automated absolute (test message] The code = 731-0) system which generated this result transmitted reference range : 850 - 3,900 cells/uL. The reference range was not used to interpret this result as normal/abnormal . Monocytes, See_Comment [Automated absolute (test message] The code = 742-7) system which generated this result transmitted reference range : 200 - 950 cells/uL. The reference range was not used to interpret this result as normal/abnormal . Eosinophils, See_Comment [Automated absolute (test message] The code = 711-2) system which generated this result transmitted reference range : 15 - 500 cells/uL. The reference range was not used to interpret this result as normal/abnormal . Basophils, See_Comment [Automated absolute (test message] The code = 704-7) system which generated this result transmitted reference range : 0 - 200 cells/u L. The reference range was not used to interpr et this result as normal/abnormal . Neutrophils (test 58.8 % code = 770-8) Lymphocytes (test 29.1 % code = 736-9) Monocytes (test 8.6 % code = 5905-5) Eosinophils (test 2.8 % code = 713-8) Basophils + RC 0.7 % (test code = 706-2) TARA (test code = FASTING:NO FASTING: TARA) NO RAC (test code = Performing RAC) Organization Information: Site ID: RGA Name: [facility] Address: [address] [place] [phone] Director: Bandar Martinez [facility] urinalysis [id number] 19:44:00 Test Item Value Reference Range Interpretation Comments Color urine, POC (test Yellow code = 6439671) Clarity urine, POC (test Hazy code = 7871268) Glucose urine, POC (test Negative Negative code = 8592296) Bilirubin urine, POC Negative Negative (test code = 4633018) Ketones urine, POC (test Negative Negative code = 7498133) Specific gravity urine, 1.005-1.030 POC (test code = 6383839) Blood urine, POC (test Trace Negative A code = 0800673) pH urine, POC (test code See_Comment [A utomated message] = 9703501) The system whic h generated this result transmitted ref erence range: 5.0, 5.5 , 6.0, 6.5, 7.0, 7.5, 8.0, 8.5. The refere nce range was not u sed to interpret this result as normal/abnor mal. Protein urine, POC (test Negative Negative code = 1459968) Urobilinogen urine, POC <2.0 See_Comment [Au tomated message] (test code = 9037536) The sy stem which generated this result transmitted ref erence range: <=2.0. T he reference range was not used to int erpret this result as normal/abnormal . Nitrite urine, POC (test Negative Negative code = 4920751) Leukocyte esterase Small Negative A urine, POC (test code = 9974669) Lab Interpretation (test Abnormal code = 07733-4) [facility] pathology [id number] 23:26:03 Test Item Value Reference Range Interpretation Comments Case number (test code = [id number]) Surgical pathology See link below for report (test code = PDF Lab Report 2255) Result status (test code This is Final Report = [id number]) for [id number] [facility] [id number] 19:28:00 Test Item Value Reference Range Interpretation Comments Vitamin B12 (test code = 1884 pg/mL 200-1100 H 2132-9) TARA (test code = TARA) FASTING:YES FASTING: YES RAC (test code = RAC) Performing Organization Information: Site ID: RGA Name: [facility] Lab Address: [address] [place] [phone] Director: Bandar Martinez Lab Interpretation (test Abnormal code = 53469-3) [facility]ville[facility]rit[facility] [id number] 19:28:00 Test Item Value Reference Range Interpretation Comments Ferritin level (test 93 ng/mL 16-288 code = 2276-4) TARA (test code = TARA) FASTING:YES FASTING: YES RAC (test code = RAC) Performing Organization Information: Site ID: RGA Name: [facility] Lab Address: [address] [place] [phone] Director: Bandar Martinez [facility]ville[facility]emoglobin [id number] 19:28:00 Test Item Value Reference Interpretation Comments Range Hemoglobin A1C See_Comment H For someone w stephanie (test code = known diabetes, a 4548-4) hemoglobin A1c value between 5.7% an d 6.4% is consist ent withprediabetes and should be confi rmed with a follow-u p test. For someo ne with known diab etes, a value <7%indicates that their diabetes is well controlled . K8awrscsso shou ld be individualized based on duration ofdiabetes, age , comorbid condit ions, and otherconsiderat ions. This assay resu lt is consistent with an increased risko f diabetes. Curre ntly, no consensus ex ists regarding use ofhemoglobin A1 c for diagnosis of diabetes for children. [Auto mated message] The sy stem which generated this result transmit shaun reference range : <5.7 % of total Hgb. The reference r lily was not used to interpret this result as normal/abnormal . TARA (test code = FASTING:YES TARA) FASTING: YES RAC (test code = Performing RAC) Organization Information: Site ID: [facility] Name: [facility] Address: [address] [place] [phone] Director: Bandar Martinez Lab Interpretation Abnormal (test code = 21489-2) [facility]villeThyroid stimulating [id number] 19:28:00 Test Item Value Reference Range Interpretation Comments TSH (test See_Comment [Automated mes elijah] code = The system whic h 3016-3) generated this result transmit shaun reference range : 0.40 - 4.50 mIU /L. The reference r lily was not used to interpret this result as normal/abnormal . TARA (test FASTING:YES FASTING: code = TARA) YES RAC (test Performing code = RAC) Organization Information: Site ID: [facility]: [facility] Address: [address] [place] [address] Director: Bandar HernandezZanesville City HospitalVitamin D 25 hydroxy [id number] 19:28:00 Test Item Value Reference Range Interpretation Comments Vitamin D, 98 ng/mL 30-100 Vitamin D Statu s 25-hydroxy (test 25-OH Vitam in D: code = 1989-3) Deficiency: <20 ng/mLInsufficie ncy : 20 - 29 ng/mLOptimal: > or = 30 ng/mL For 25-OH Vitamin D testing on patients on D2-supplementat ion and patients fo r whom quantitati on of D2 and D3 fractions is required, the QuestAssureD(TM )25 -OH VIT D, (D2,D3), LC/MS/ MS is recommended: order code 9288 8 (patients >2yrs).See Note 1 Note 1 For additional information, please refer to http://educatio n.Q uestDiagnostics .co m/faq/XCN564 (T his link is being provided for informational/e oksana ational purpose s only.) TARA (test code = FASTING:YES FASTING: TARA) YES RAC (test code = Performing RAC) Organization Information: Site ID: [facility]: [facility] Address: [address] [place] [address] Director: Bandar Martinez [facility]album[facility] / creatinine urine [id number] 19:28:00 Test Item Value Reference Range Interpretation Comments Creatinine, 187 mg/dL 20-275 urine (mg/dL) (test code = 2161-8) Microalbumin 1.7 mg/dL See Note: Reference Range : , urine Reference Range Not (test code = established 18985-7) Microalbumin See_Comment The ADA define s /creatinine abnormalities i n ratio (test albuminexcretio n as code = follows: Albumi len 9318-7) Category Result (mcg/mg creatinine) Nor mal to Mildly increase d <30Moderately i ncreased 30-299 Severely increased > OR = 300 The ADA recomme nds that at least two of threespecimens collected withi n a 3-6 month period be abnormal before consider ing a patient to bewi thin a diagnostic mireya gory. [Automated mess age] The system which ge nerated this result tra nsmitted reference range : <30 mcg/mg creat. T he reference range was not used to interpr et this result as normal/abnormal . TARA (test FASTING:YES code = TARA) FASTING: YES RAC (test Performing code = RAC) Organization Information: Site ID: RGA Name: [facility] Lab Address: [address] [place] [phone] Director: Bandar Martinez [facility] iron binding [id number] 19:28:00 Test Item Value Reference Range Interpretation Comments Iron level (test See_Comment [Automated code = 2498-4) message] The system which generated this result transmit shaun reference range : 45 - 160 mcg/dL . The reference range was not u sed to interpret th is result as normal/abnormal . Iron binding See_Comment [Automated capacity (test message] The code = 2500-7) system which generated this result transmit shaun reference range : 250 - 450 mcg/d L (calc). The reference range was not used to interpret this result as normal/abnormal . Iron saturation See_Comment [Automated (test code = message] The 2502-3) system which generated this result transmit shaun reference range : 16 - 45 % (calc ). The reference range was not u sed to interpret th is result as normal/abnormal . TARA (test code = FASTING:YES TARA) FASTING: YES RAC (test code = Performing RAC) Organization Information: Site ID: RGA [facility]: [facility] Address: [address] [place] [phone] Director: Bandar Seo [facility] CenterLIPID PANEL WITH REFLEX TO DIRECT [id number] 19:28:00 Test Item Value Reference Range Interpretation Comments Cholesterol, total 195 mg/dL See_Comment [Automat ed (test code = 2093-3) message ] The system which generated this result transmitted reference range : <=200. The reference range was not used to interpret this result as normal/abnormal . HDL cholesterol 55 mg/dL See_Comment [Automated (test code = 2085-9) message ] The system which generated this result transmitted reference range : > OR = 50. The reference range was not used to interpret this result as normal/abnormal . Triglycerides (test 125 mg/dL See_Comment [Automa shaun code = 2571-8) message] The system which generated this result transmitted reference range : <=150. The reference range was not used to interpret this result as normal/abnormal . LDL cholesterol mg/dL (calc) H Reference ra nge: calculated (test <100 Desira ble code = 00647-2) range <100 m g/dL for primary prevention; <70 mg/dL for patients with C HD or diabetic patients with > or = 2 CHD risk factors. LDL-C is now calculated using the Lisandro-Lanette calculation, which is a validated novel method providin g better accuracy than the Friedewald equation in the estimation of LDL-C. Lisandro S S et al. JOURDAN. 2013;310(19): 3200-2535 (http://educati on .QuestDiagnosti Primo.io .com/faq/WAU220 ) Cholesterol/HDL See_Comment [Automated ratio (test code = message] The 9830-1) system which generated this result transmitted reference range : <5.0 (calc). Th e reference range was not used to interpret this result as normal/abnormal . Non-HDL cholesterol See_Comment H For leonel ents with (test code = diabetes plus 1 14912-2) major ASCVD ris k factor, treatin g to a non-HDL-C goal of <100 mg/dL (LDL-C of <70 mg/dL) is considered a therapeutic option. [Automated message] The system which generated this result transmitted reference range : <130 mg/dL (calc). The reference range was not used to interpret this result as normal/abnormal . TARA (test code = FASTING:YES TARA) FASTING: YES RAC (test code = Performing RAC) Organization Information: Site ID: [facility] Name: [facility] Address: [address] [place] [address] Director: Bandar Martinez Lab Interpretation Abnormal (test code = 01012-7) [facility] [id number] 03:50:00 Test Item Value Reference Range Interpretation Comments Hepatitis C Ab NON-REACTIVE NON-REACTIVE (test code = 40988-7) Signal/cutoff See_Comment HCV antibody was (test code = non-reactive. 96678-2) There is no laboratory evidence of HCV infection. In m ost cases, no furth er action is required. However,if rece nt HCV exposure is suspected, a te st for HCV RNA(alyssa t code 62358) is suggested. For additional information ple ase refer tohttp://educat ion .[employer]. [employer]/faq/FLG58g1 (Th is link is eleazar malik provided for informational/e oksana ational purpose s only.) [Automat ed message] The system which generated this result transmit shaun reference range : <=1.00. The reference range was not used to interpret this result as normal/abnormal . TARA (test code = FASTING:YES TARA) FASTING: YES RAC (test code = Performing RAC) Organization Information: Site ID: [facility]: [facility] Address: [address] [place] [phone] Director: Bandar Martinez [facility]ville[facility]INAL[facility], COMPLETE, WITH REFLEX TO [id number] 03:50:00 Test Item Value Reference Range Interpretation Comments Color, UA (test YELLOW YELLOW code = 5778-6) Appearance (test CLEAR CLEAR code = 5767-9) Specific gravity, 1.001-1.035 urine (test code = 5811-5) pH, urine (test 5-8 code = 5803-2) Glucose, urine NEGATIVE NEGATIVE (test code = 07405-0) Bilirubin, UA NEGATIVE NEGATIVE (test code = 5770-3) Ketones, UA (test NEGATIVE NEGATIVE code = 2514-8) Occult blood, NEGATIVE NEGATIVE urine (test code = 5794-3) Protein, UA (test NEGATIVE NEGATIVE code = 80487-3) Nitrite, UA (test NEGATIVE NEGATIVE code = 5802-4) Leukocyte NEGATIVE NEGATIVE esterase, UA (test code = 5799-2) WBC, UA (test NONE SEEN See_Comment [Automated code = 5821-4) message] The system which generated this result transmit shaun reference range : < OR = 5 /HPF. Th e reference range was not used to interpret this result as normal/abnormal . RBC, UA (test NONE SEEN See_Comment [Automated code = 67709-1) message] The system which generated this result transmit shaun reference range : < OR = 2 /HPF. Th e reference range was not used to interpret this result as normal/abnormal . Squamous NONE SEEN See_Comment [Automated epithelial cells, message] T he UA (test code = system which 82463-2) generated this result transmit shaun reference range : < OR = 5 /HPF. Th e reference range was not used to interpret this result as normal/abnormal . Bacteria, UA NONE SEEN NONE SEEN /HPF (test code = 5769-5) Hyaline casts, UA NONE SEEN NONE SEEN /LPF (test code = 5796-8) Reflex (test code NO CULTURE = 630-4) INDICATED TARA (test code = FASTING:YES TARA) FASTING: YES RAC (test code = Performing RAC) Organization Information: Site ID: RGA [facility]: [facility] Address: [address] [place] [phone] Director: Bandar Martinez [facility] metabolic [id number] 03:50:00 Test Item Value Reference Interpretation Comments Range Glucose (test code 106 mg/dL 65-99 H Fasting reference = 2345-7) interval For so meone without known diabetes, a glu cose valuebetween 10 0 and 125 mg/dL is consistent withprediabetes and should be confi rmed with afollow-up test. BUN (test code = 11 mg/dL 7-25 3094-0) Creatinine (test 0.60 mg/dL 0.50-0.99 For patient s >49 code = 2160-0) years of age, the reference limit for Creatinine is approximately 1 3% higher for peopleidentifie d as -Consuelo n. EGFR Non-Afr. See_Comment [Automated me ssage] Albanian (test code The syst em which = 2775) generated this result transmit shaun reference range : > OR = 60 mL/min/1.73m2. The reference range was not used to interpret this result as normal/abnormal . EGFR See_Comment [Automated mes elijah] Albanian (test code The syst em which = 2774) generated this result transmit shaun reference range : > OR = 60 mL/min/1.73m2. The reference range was not used to interpret this result as normal/abnormal . BUN/creatinine NOT APPLICABLE See_Comment [Automated message] ratio (test code = [facility] 3097[facility] generated this result transmit shaun reference range : 6 - 22 (calc). The reference range was not used to interpret this result as normal/abnormal . Sodium (test code = 141 mmol/L 450-930 5703-2) Potassium (test 4.6 mmol/L 3.5-5.3 code = 2823-3) Chloride (test code 104 mmol/L 98-110 = 2075-0) CO2 (test code = 30 mmol/L 20-32 8-9) Calcium (test code 9.9 mg/dL 8.6-10.4 = 63372-0) Protein (test code 7.3 g/dL 6.1-8.1 = 2885-2) Albumin, S (test 4.3 g/dL 3.6-5.1 code = 1751-7) Globulin, total See_Comment [Automated message] (test code = The system [facility] h 225[address]-6) generated this result transmit shaun reference range : 1.9 - 3.7 g/dL (jimbo c). The reference r lily was not used to interpret this result as normal/abnormal . Albumin/globulin See_Comment [Automated message] ratio (test code = [facility] which 1759-0) generated this result transmit shaun reference range : 1.0 - 2.5 (calc). T he reference range was not used to interpret this result as normal/abnormal . Total bilirubin 0.7 mg/dL 0.2-1.2 (test code = 1975-2) Alkaline 115 U/L 37-153 phosphatase (test code = 6768-6) AST (test code = 13 U/L 1920-8) ALT (test code = 9 U/L 09-25 1742-6) TARA (test code = FASTING:YES TARA) FASTING: YES RAC (test code = Performing RAC) Organization Information: Site ID: [facility] Address: [address] [place] [phone] Director: Bandar Martinez Lab Interpretation Abnormal (test code = 17103-3) [facility]ville[facility] stimulating [id number] 03:50:00 Test Item Value Reference Range Interpretation Comments TSH (test See_Comment [Automated mes elijah] code = The system ic h 3016-3) generated this result transmit shaun reference range : 0.40 - 4.50 mIU /L. The reference r lily was not used to interpret this result as normal/abnormal . TARA (test FASTING:YES FASTING: code = TARA) YES RAC (test Performing code = RAC) Organization Information: Site ID: [facility] Address: [address] [place] [address] Director: Bandar Martinez [facility] with platelet and [id number] 03:50:00 Test Item Value Reference Range Interpretation Comments WBC (test code = See_Comment [Automated 2890-2) message] The system which generated this result transmitted reference range : 3.8 - 10.8 Thousand/uL. Th e reference range was not used to interpret this result as normal/abnormal . RBC (test code = See_Comment [Automated 569-8) message] The system which generated this result transmitted reference range : 3.80 - 5.10 Million/uL. The reference range was not used to interpret this result as normal/abnormal . HGB (test code = 14.0 g/dL 11.7-15.5 718-7) HCT (test code = 41.4 % 35.0-45.0 4544-3) MCV (test code = 87.2 fL 80.0-100.0 787-2) MCH (test code = 29.5 pg 27.0-33.0 785-6) MCHC (test code = 33.8 g/dL 32.0-36.0 786-4) RDW (test code = 12.3 % 11.0-15.0 788-0) Platelet count See_Comment [Automated (test code = message] The 777-3) system which generated this result transmitted reference range : 140 - 400 Thousand/uL. Th e reference range was not used to interpret this result as normal/abnormal . MPV (test code = 11.7 fL 7.5-12.5 776-5) Neutrophils, See_Comment [Automated absolute (test message] The code = 751-8) system which generated this result transmitted reference range : 1,500 - 7,800 cells/uL. The reference range was not used to interpret this result as normal/abnormal . Lymphocytes, See_Comment [Automated absolute (test message] The code = 731-0) system which generated this result transmitted reference range : 850 - 3,900 cells/uL. The reference range was not used to interpret this result as normal/abnormal . Monocytes, See_Comment [Automated absolute (test message] The code = 742-7) system which generated this result transmitted reference range : 200 - 950 cells/uL. The reference range was not used to interpret this result as normal/abnormal . Eosinophils, See_Comment [Automated absolute (test message] The code = 711-2) system which generated this result transmitted reference range : 15 - 500 cells/uL. The reference range was not used to interpret this result as normal/abnormal . Basophils, See_Comment [Automated absolute (test message] The code = 704-7) system which generated this result transmitted reference range : 0 - 200 cells/u L. The reference range was not used to interpr et this result as normal/abnormal . Neutrophils (test 65.1 % code = 770-8) Lymphocytes (test 23.8 % code = 736-9) Monocytes (test 7.1 % code = 5905-5) Eosinophils (test 3.3 % code = 713-8) Basophils + RC 0.7 % (test code = 706-2) TARA (test code = FASTING:YES TARA) FASTING: YES RAC (test code = Performing RAC) Organization Information: Site ID: [facility] Address: [address] [place] [address] Director: Bandar Martinez [facility]2022-01-20 03:50:00 Test Item Value Reference Range Interpretation Comments Hepatitis C Ab NON-REACTIVE NON-REACTIVE (test code = 65411-7) Signal/cutoff <1.00 HCV antibody was (test code = non-reactive. 26884-7) There is no laboratory evidence of HCV infection. In m ost cases, no furth er action is required. However,if rece nt HCV exposure is suspected, a te st for HCV RNA(alyssa t code 86176) is suggested. For additional information ple ase refer tohttp://educat ion .Patterns/faq/GAQ20r1 (Th is link is eleazar malik provided for informational/e oksana ational purpose s only.) TARA (test code = FASTING:YES TARA) FASTING: YES RAC (test code = Performing RAC) Organization Information: Site ID: RGA [facility] Address: [address] [place] [phone] Director: Bandar Martinez [facility]ville[facility] PANEL WITH REFLEX TO DIRECT [id number] 03:50:00 Test Item Value Reference Range Interpretation Comments Cholesterol, total 191 mg/dL <200 (test code = 2093-3) HDL cholesterol 60 mg/dL See_Comment [Automated (test code = 5-9) message ] The system which generated this result transmitted reference range : > OR = 50. The reference range was not used to interpret this result as normal/abnormal . Triglycerides (test 159 mg/dL <150 H code = 2571-8) LDL cholesterol mg/dL (calc) H Reference ra nge: calculated (test <100 Desira ble code = 41802-3) range <100 m g/dL for primary prevention; <70 mg/dL for patients with C HD or diabetic patients with > or = 2 CHD risk factors. LDL-C is now calculated using the Angella calculation, which is a validated novel method tate malik better accuracy than the Friedewald equation in the estimation of LDL-C. Lisandro Daniels et al. JOURDAN. 2013;310(19): 2922-6503 (http://educati on .DDStocks/faq/NTV981 ) Cholesterol/HDL See_Comment [Automated ratio (test code = message] The 9830-1) system which generated this result transmitted reference range : <5.0 (calc). Th e reference range was not used to interpret this result as normal/abnormal . Non-HDL cholesterol See_Comment H For leonel ents with (test code = diabetes plus 1 12021-0) major ASCVD ris k factor, treatin g to a non-HDL-C goal of <100 mg/dL (LDL-C of <70 mg/dL) is considered a therapeutic option. [Automated message] The system which generated this result transmitted reference range : <130 mg/dL (calc). The reference range was not used to interpret this result as normal/abnormal . TARA (test code = FASTING:YES TARA) FASTING: YES RAC (test code = Performing RAC) Organization Information: Site ID: RGA Name: [facility] Address: [address] [place] [phone] Director: Bandar Martinez [facility] Interpretation Abnormal (test code = 07200-9) [facility] WITH REFLEX TO [id number] 03:50:00 Test Item Value Reference Range Interpretation Comments Color, UA (test YELLOW YELLOW code = 5778-6) Appearance (test CLEAR CLEAR code = 5767-9) Specific gravity, 1.001-1.035 urine (test code = 5811-5) pH, urine (test 5.0-8.0 code = 5803-2) Glucose, urine NEGATIVE NEGATIVE (test code = 83228-0) Bilirubin, UA NEGATIVE NEGATIVE (test code = 5770-3) Ketones, UA (test NEGATIVE NEGATIVE code = 2514-8) Occult blood, NEGATIVE NEGATIVE urine (test code = 5794-3) Protein, UA (test NEGATIVE NEGATIVE code = 68971-2) Nitrite, UA (test NEGATIVE NEGATIVE code = 5802-4) Leukocyte NEGATIVE NEGATIVE esterase, UA (test code = 5799-2) WBC, UA (test NONE SEEN See_Comment [Automated code = 5821-4) message] The system which generated this result transmit shaun reference range : < OR = 5 /HPF. Th e reference range was not used to interpret this result as normal/abnormal . RBC, UA (test NONE SEEN See_Comment [Automated code = 96175-0) message] The system which generated this result transmit shaun reference range : < OR = 2 /HPF. Th e reference range was not used to interpret this result as normal/abnormal . Squamous NONE SEEN See_Comment [Automated epithelial cells, message] T he UA (test code = system which 12731-9) generated this result transmit shaun reference range : < OR = 5 /HPF. Th e reference range was not used to interpret this result as normal/abnormal . Bacteria, UA NONE SEEN NONE SEEN /HPF (test code = 5769-5) Hyaline casts, UA NONE SEEN NONE SEEN /LPF (test code = 5796-8) Reflex (test code NO CULTURE = 630-4) INDICATED TARA (test code = FASTING:YES TARA) FASTING: YES RAC (test code = Performing RAC) Organization Information: Site ID: RGA [facility]: [facility] Address: [address] [place] [phone] Director: Bandar Martinez [facility] [id number] 03:50:00 Test Item Value Reference Interpretation Comments Range Glucose (test code 106 mg/dL 65-99 H Fasting reference = 2345-7) interval For so meone without known diabetes, a glu cose valuebetween 10 0 and 125 mg/dL is consistent withprediabetes and should be confi rmed with afollow-up test. BUN (test code = 11 mg/dL 10-21 3094-0) Creatinine (test 0.60 mg/dL 0.50-0.99 For patient s >49 code = 2160-0) years of age, the reference limit for Creatinine is approximately 1 3% higher for peopleidentifie d as -Consuelo n. EGFR Non-Afr. See_Comment [Automated me ssage] Albanian (test code The syst em which = 7284) generated this result transmit shaun reference range : > OR = 60 mL/min/1.73m2. The reference range was not used to interpret this result as normal/abnormal . EGFR See_Comment [Automated mes elijah] Albanian (test code The syst em which = 2068) generated this result transmit shaun reference range : > OR = 60 mL/min/1.73m2. The reference range was not used to interpret this result as normal/abnormal . BUN/creatinine NOT APPLICABLE See_Comment [Automated message] ratio (test code = The syste m which 3097-3) generated this result transmit shaun reference range : 6 - 22 (calc). The reference range was not used to interpret this result as normal/abnormal . Sodium (test code = 141 mmol/L 625-691 9231-2) Potassium (test 4.6 mmol/L 3.5-5.3 code = 2823-3) Chloride (test code 104 mmol/L 98-110 = 2075-0) CO2 (test code = 30 mmol/L 20-32 2027-9) Calcium (test code 9.9 mg/dL 8.6-10.4 = 85430-9) Protein (test code 7.3 g/dL 6.1-8.1 = 2885-2) Albumin, S (test 4.3 g/dL 3.6-5.1 code = 1751-7) Globulin, total See_Comment [Automated message] (test code = The system [employer] 90416-8) generated this result transmit shaun reference range : 1.9 - 3.7 g/dL (jimbo c). The reference r lily was not used to interpret this result as normal/abnormal . Albumin/globulin See_Comment [Automated message] ratio (test code = The [employer] m which 1759-0) generated this result transmit shaun reference range : 1.0 - 2.5 (calc). T he reference range was not used to interpret this result as normal/abnormal . Total bilirubin 0.7 mg/dL 0.2-1.2 (test code = 1975-2) Alkaline 115 U/L 37-153 phosphatase (test code = 6768-6) AST (test code = 13 U/L 10-35 1920-8) ALT (test code = 9 U/L 6-29 1742-6) TARA (test code = FASTING:YES TARA) FASTING: YES RAC (test code = Performing RAC) Organization Information: Site ID: RGA Name: [facility] Address: [address] [place] [address] Director: Bandar Martinez [facility] Interpretation Abnormal (test code = 86652-5) [facility] [id number] 03:50:00 Test Item Value Reference Range Interpretation Comments TSH (test See_Comment [Automated mes elijah] code = The system [employer] 3016-3) generated this result transmit shaun reference range : 0.40 - 4.50 mIU /L. The reference r lily was not used to interpret this result as normal/abnormal . TARA (test FASTING:YES FASTING: code = TARA) YES RAC (test Performing code = RAC) Organization Information: Site ID: [facility]GA [facility] Address: [address] [place] [address] Director: Bandar Martinez [facility] with platelet and [id number] 03:50:00 Test Item Value Reference Range Interpretation Comments WBC (test code = See_Comment [Automated 6690-2) message] The system which generated this result transmitted reference range : 3.8 - 10.8 Thousand/uL. Th e reference range was not used to interpret this result as normal/abnormal . RBC (test code = See_Comment [Automated 769-8) message] The system which generated this result transmitted reference range : 3.80 - 5.10 Million/uL. The reference range was not used to interpret this result as normal/abnormal . HGB (test code = 14.0 g/dL 11.7-15.5 718-7) HCT (test code = 41.4 % 35.0-45.0 4544-3) MCV (test code = 87.2 fL 80.0-100.0 787-2) MCH (test code = 29.5 pg 27.0-33.0 785-6) MCHC (test code = 33.8 g/dL 32.0-36.0 786-4) RDW (test code = 12.3 % 11.0-15.0 788-0) Platelet count See_Comment [Automated (test code = message] The 777-3) system which generated this result transmitted reference range : 140 - 400 Thousand/uL. Th e reference range was not used to interpret this result as normal/abnormal . MPV (test code = 11.7 fL 7.5-12.5 776-5) Neutrophils, See_Comment [Automated absolute (test message] The code = 751-8) system which generated this result transmitted reference range : 1,500 - 7,800 cells/uL. The reference range was not used to interpret this result as normal/abnormal . Lymphocytes, See_Comment [Automated absolute (test message] The code = 731-0) system which generated this result transmitted reference range : 850 - 3,900 cells/uL. The reference range was not used to interpret this result as normal/abnormal . Monocytes, See_Comment [Automated absolute (test message] The code = 742-7) system which generated this result transmitted reference range : 200 - 950 cells/uL. The reference range was not used to interpret this result as normal/abnormal . Eosinophils, See_Comment [Automated absolute (test message] The code = 711-2) system which generated this result transmitted reference range : 15 - 500 cells/uL. The reference range was not used to interpret this result as normal/abnormal . Basophils, See_Comment [Automated absolute (test message] The code = 704-7) system which generated this result transmitted reference range : 0 - 200 cells/u L. The reference range was not used to interpr et this result as normal/abnormal . Neutrophils (test 65.1 % code = 770-8) Lymphocytes (test 23.8 % code = 736-9) Monocytes (test 7.1 % code = 5905-5) Eosinophils (test 3.3 % code = 713-8) Basophils + RC 0.7 % (test code = 706-2) TARA (test code = FASTING:YES TARA) FASTING: YES RAC (test code = Performing RAC) Organization Information: Site ID: RGA [facility]: [facility] Address: [address] [place] [address] Director: Bandar Martinez [facility] C [id number] 03:50:00 Test Item Value Reference Range Interpretation Comments Hepatitis C Ab NON-REACTIVE NON-REACTIVE (test code = 13077-8) Signal/cutoff <1.00 HCV antibody was (test code = non-reactive. 40123-0) There is no laboratory evidence of HCV infection. In m ost cases, no furth er action is required. However,if rece nt HCV exposure is suspected, a te st for HCV RNA(alyssa t code 33124) is suggested. For additional information ple ase refer tohttp://educat ion .[employer]. com/faq/MCJ44p1 (Th is link is bein g provided for informational/e oksana ational purpose s only.) TARA (test code = FASTING:YES TARA) FASTING: YES RAC (test code = Performing RAC) Organization Information: Site ID: RGA [facility]: [facility] Address: [address] [place] [address] Director: Bandar Martinez [facility]villeLIPID PANEL WITH REFLEX TO DIRECT [id number] 03:50:00 Test Item Value Reference Range Interpretation Comments Cholesterol, total 191 mg/dL <200 (test code = 2093-3) HDL cholesterol 60 mg/dL See_Comment [Automated (test code = 5-9) message ] The system which generated this result transmitted reference range : > OR = 50. The reference range was not used to interpret this result as normal/abnormal . Triglycerides (test 159 mg/dL <150 H code = 2571-8) LDL cholesterol mg/dL (calc) H Reference ra nge: calculated (test <100 Desira ble code = 73114-6) range <100 m g/dL for primary prevention; <70 mg/dL for patients with C HD or diabetic patients with > or = 2 CHD risk factors. LDL-C is now calculated using the Lisandro-Lanette calculation, which is a validated novel method providin g better accuracy than the Friedewald equation in the estimation of LDL-C. Lisandro S S et al. JOURDAN. 2013;310(19): 1326-7950 (http://educati on .[employer]oc[employer] .com/faq/SAR904 ) Cholesterol/HDL See_Comment [Automated ratio (test code = message] The 9830-1) system which generated this result transmitted reference range : <5.0 (calc). Th e reference range was not used to interpret this result as normal/abnormal . Non-HDL cholesterol See_Comment H For leonel ents with (test code = diabetes plus 1 07211-4) major ASCVD ris k factor, treatin g to a non-HDL-C goal of <100 mg/dL (LDL-C of <70 mg/dL) is considered a therapeutic option. [Automated message] The system which generated this result transmitted reference range : <130 mg/dL (calc). The reference range was not used to interpret this result as normal/abnormal . TARA (test code = FASTING:YES TARA) FASTING: YES RAC (test code = Performing RAC) Organization Information: Site ID: RGA Name: [facility] Address: [address] [place] [address] Director: Bandar Martinez Lab Interpretation Abnormal (test code = 58395-7) [facility], [facility]PLE[facility], WITH REFLEX TO [id number] 03:50:00 Test Item Value Reference Range Interpretation Comments Color, UA (test YELLOW YELLOW code = 5778-6) Appearance (test CLEAR CLEAR code = 5767-9) Specific gravity, 1.001-1.035 urine (test code = 5811-5) pH, urine (test 5.0-8.0 code = 5803-2) Glucose, urine NEGATIVE NEGATIVE (test code = 97230-3) Bilirubin, UA NEGATIVE NEGATIVE (test code = 5770-3) Ketones, UA (test NEGATIVE NEGATIVE code = 2514-8) Occult blood, NEGATIVE NEGATIVE urine (test code = 5794-3) Protein, UA (test NEGATIVE NEGATIVE code = 30996-7) Nitrite, UA (test NEGATIVE NEGATIVE code = 5802-4) Leukocyte NEGATIVE NEGATIVE esterase, UA (test code = 5799-2) WBC, UA (test NONE SEEN See_Comment [Automated code = 5821-4) message] The system which generated this result transmit shaun reference range : < OR = 5 /HPF. Th e reference range was not used to interpret this result as normal/abnormal . RBC, UA (test NONE SEEN See_Comment [Automated code = 29349-1) message] The system which generated this result transmit shaun reference range : < OR = 2 /HPF. Th e reference range was not used to interpret this result as normal/abnormal . Squamous NONE SEEN See_Comment [Automated epithelial cells, message] T he UA (test code = system which 93989-0) generated this result transmit shaun reference range : < OR = 5 /HPF. Th e reference range was not used to interpret this result as normal/abnormal . Bacteria, UA NONE SEEN NONE SEEN /HPF (test code = 5769-5) Hyaline casts, UA NONE SEEN NONE SEEN /LPF (test code = 5796-8) Reflex (test code NO CULTURE = 630-4) INDICATED TARA (test code = FASTING:YES TARA) FASTING: YES RAC (test code = Performing RAC) Organization Information: Site ID: RGA Name: [facility] Address: [address] [place] [id number] Director: Bandar Martinez [facility] glycosylated hemoglobin (Hb A1C)2021-04-16 17:28:00 Test Item Value Reference Range Interpretation Comments POC Hemoglobin A1C (test code = 5.9 % 8480211) [facility] glycosylated hemoglobin (Hb A1C)2021-04-16 17:28:00 Test Item Value Reference Range Interpretation Comments POC Hemoglobin A1C (test code = 5.9 % 7849069) [facility] glycosylated hemoglobin (Hb A1C)2021-04-16 17:28:00 Test Item Value Reference Range Interpretation Comments POC Hemoglobin A1C (test code = 5.9 % 8678449) [facility]ville[facility]12 [id number] 07:47:00 Test Item Value Reference Range Interpretation Comments Vitamin B12 (test code = 1484 pg/mL 200-1100 H 2132-9) TARA (test code = TARA) FASTING:YES FASTING: YES RAC (test code = RAC) Performing Organization Information: Site ID: RGA Name: [facility] Address: [address] [place] [address] Director: Bandar Martinez Lab Interpretation (test Abnormal code = 12783-0) [facility]ville[facility]oglobin [id number] 07:47:00 Test Item Value Reference Interpretation Comments Range Hemoglobin A1C See_Comment H For someone w ithout (test code = known diabetes, a 4548-4) hemoglobin A1c value between 5.7% an d 6.4% is consist ent withprediabetes and should be confi rmed with a follow-u p test. For someo ne with known diab etes, a value <7%indicates that their diabetes is well controlled . O0qmtpioua shou ld be individualized based on duration ofdiabetes, age , comorbid condit ions, and otherconsiderat ions. This assay resu lt is consistent with an increased risko f diabetes. Curre ntly, no consensus ex ists regarding use ofhemoglobin A1 c for diagnosis of diabetes for children. [Auto mated message] The sy stem which generated this result transmit shaun reference range : <5.7 % of total Hgb. The reference r lily was not used to interpret this result as normal/abnormal . TARA (test code = FASTING:YES TARA) FASTING: YES RAC (test code = Performing RAC) Organization Information: Site ID: [facility]: [facility] Address: [address] [place] [address] Director: Bandar Martinez Lab Interpretation Abnormal (test code = 63148-6) [facility]villeT[facility], [id number] 07:47:00 Test Item Value Reference Range Interpretation Comments T4, free (test code 1.0 ng/dL 0.8-1.8 = 3024-7) TARA (test code = FASTING:YES FASTING: YES TARA) RAC (test code = Performing Organization RAC) Information: Site ID: [facility] Address: [address] [place] [address] Director: Bandar Martinez [facility]villeUrinalysis, automated with [id number] 07:47:00 Test Item Value Reference Range Interpretation Comments Color, UA (test YELLOW YELLOW code = 5778-6) Appearance (test CLEAR CLEAR code = 5767-9) Specific gravity, 1.001-1.035 urine (test code = 5811-5) pH, urine (test 5.0-8.0 code = 5803-2) Glucose, urine NEGATIVE NEGATIVE (test code = 66989-5) Bilirubin, UA NEGATIVE NEGATIVE (test code = 5770-3) Ketones, UA (test NEGATIVE NEGATIVE code = 2514-8) Occult blood, NEGATIVE NEGATIVE urine (test code = 5794-3) Protein, UA (test NEGATIVE NEGATIVE code = 25119-5) Nitrite, UA (test NEGATIVE NEGATIVE code = 5802-4) Leukocyte NEGATIVE NEGATIVE esterase, UA (test code = 5799-2) WBC, UA (test NONE SEEN See_Comment [Automated code = 5821-4) message] The system which generated this result transmit shaun reference range : < OR = 5 /HPF. Th e reference range was not used to interpret this result as normal/abnormal . RBC, UA (test NONE SEEN See_Comment [Automated code = 52257-4) message] The system which generated this result transmit shaun reference range : < OR = 2 /HPF. Th e reference range was not used to interpret this result as normal/abnormal . Squamous NONE SEEN See_Comment [Automated epithelial cells, message] T he UA (test code = system which 66385-0) generated this result transmit shaun reference range : < OR = 5 /HPF. Th e reference range was not used to interpret this result as normal/abnormal . Bacteria, UA NONE SEEN NONE SEEN /HPF (test code = 5769-5) Hyaline casts, UA NONE SEEN NONE SEEN /LPF (test code = 5796-8) TARA (test code = FASTING:YES TARA) FASTING: YES RAC (test code = Performing RAC) Organization Information: Site ID: [facility]GA [facility] Address: [address] [place] [address] Director[facility] 25 hydroxy [id number] 07:47:00 Test Item Value Reference Range Interpretation Comments Vitamin D, 66 ng/mL 30-100 Vitamin D Statu s 25-hydroxy (test 25-OH Vitam in D: code = 1988-) Deficiency: < 20 ng/mLInsufficie ncy : 20 - 29 ng/mLOptimal: > or = 30 ng/mL For 25-OH Vitamin D testing on patients on D2-supplementat ion and patients fo r whom quantitati on of D2 and D3 fractions is required, the QuestAssureD(TM )25 -OH VIT D, (D2,D3), LC/MS/ MS is recommended: order code 9288 8 (patients >2yrs).See Note 1 Note 1 For additional information, please refer to http://educatio n.Q uestDiagnostics .co m/faq/BMU469 (T his link is being provided for informational/e oksana ational purpose s only.) TARA (test code = FASTING:YES FASTING: TARA) YES RAC (test code = Performing RAC) Organization Information: Site ID: [facility]GA [facility] Address: [address] [place] [address] Director: [facility] [id number] 07:47:00 Test Item Value Reference Range Interpretation Comments Vitamin B12 (test code = 1484 pg/mL 200-1100 H 2-9) TARA (test code = TARA) FASTING:YES FASTING: YES RAC (test code = RAC) Performing Organization Information: Site ID: [facility] Name: [facility] Address: [address] [place] [address] Director: Bandar Martinez Lab Interpretation (test Abnormal code = 23174-7) [facility]ville[facility] [id number] 07:47:00 Test Item Value Reference Interpretation Comments Range Hemoglobin A1C See_Comment H For someone w stephanie (test code = known diabetes, a 4548-4) hemoglobin A1c value between 5.7% an d 6.4% is consist ent withprediabetes and should be confi rmed with a follow-u p test. For someo ne with known diab etes, a value <7%indicates that their diabetes is well controlled . Y8qqpicmlg shou ld be individualized based on duration ofdiabetes, age , comorbid condit ions, and otherconsiderat ions. This assay resu lt is consistent with an increased risko f diabetes. Curre ntly, no consensus ex ists regarding use ofhemoglobin A1 c for diagnosis of diabetes for children. [Auto mated message] The sy stem which generated this result transmit shaun reference range : <5.7 % of total Hgb. The reference r lily was not used to interpret this result as normal/abnormal . TARA (test code = FASTING:YES TARA) FASTING: YES RAC (test code = Performing RAC) Organization Information: Site ID: [facility] Address: [address] [place] [address] Director: Bandar Martinez Lab Interpretation Abnormal (test code = 88116-2) [facility]villeT4, [id number] 07:47:00 Test Item Value Reference Range Interpretation Comments T4, free (test code 1.0 ng/dL 0.8-1.8 = 3024-7) TARA (test code = FASTING:YES FASTING: YES TARA) RAC (test code = Performing Organization RAC) Information: Site ID: [facility]: [facility] Address: [address] [place] [address] Director: Bandar Martinez [facility]villeUrinalysis, automated with [id number] 07:47:00 Test Item Value Reference Range Interpretation Comments Color, UA (test YELLOW YELLOW code = 5778-6) Appearance (test CLEAR CLEAR code = 5767-9) Specific gravity, 1.001-1.035 urine (test code = 5811-5) pH, urine (test 5.0-8.0 code = 5803-2) Glucose, urine NEGATIVE NEGATIVE (test code = 97255-3) Bilirubin, UA NEGATIVE NEGATIVE (test code = 5770-3) Ketones, UA (test NEGATIVE NEGATIVE code = 2514-8) Occult blood, NEGATIVE NEGATIVE urine (test code = 5794-3) Protein, UA (test NEGATIVE NEGATIVE code = 40579-0) Nitrite, UA (test NEGATIVE NEGATIVE code = 5802-4) Leukocyte NEGATIVE NEGATIVE esterase, UA (test code = 5799-2) WBC, UA (test NONE SEEN See_Comment [Automated code = 5821-4) message] The system which generated this result transmit shaun reference range : < OR = 5 /HPF. Th e reference range was not used to interpret this result as normal/abnormal . RBC, UA (test NONE SEEN See_Comment [Automated code = 60868-2) message] The system which generated this result transmit shaun reference range : < OR = 2 /HPF. Th e reference range was not used to interpret this result as normal/abnormal . Squamous NONE SEEN See_Comment [Automated epithelial cells, message] T he UA (test code = system which 41202-4) generated this result transmit shaun reference range : < OR = 5 /HPF. Th e reference range was not used to interpret this result as normal/abnormal . Bacteria, UA NONE SEEN NONE SEEN /HPF (test code = 5769-5) Hyaline casts, UA NONE SEEN NONE SEEN /LPF (test code = 5796-8) TARA (test code = FASTING:YES TARA) FASTING: YES RAC (test code = Performing RAC) Organization Information: Site ID: [facility]: [facility] Address: [address] [place] [address] Director: Bandar Martinez [facility]villeVit[facility] D 25 hydroxy [id number] 07:47:00 Test Item Value Reference Range Interpretation Comments Vitamin D, 66 ng/mL 30-100 Vitamin D Statu s 25-hydroxy (test 25-OH Vitam in D: code = 1988-3) Deficiency: < 20 ng/mLInsufficie ncy : 20 - 29 ng/mLOptimal: > or = 30 ng/mL For 25-OH Vitamin D testing on patients on D2-supplementat ion and patients fo r whom quantitati on of D2 and D3 fractions is required, the QuestAssureD(TM )25 -OH VIT D, (D2,D3), LC/MS/ MS is recommended: order code 9288 8 (patients >2yrs).See Note 1 Note 1 For additional information, please refer to http://educatio n.Q uestDiagnostics .co m/faq/PVS498 (T his link is being provided for informational/e oksana ational purpose s only.) TARA (test code = FASTING:YES FASTING: TARA) YES RAC (test code = Performing RAC) Organization Information: Site ID: [facility]: [facility] Address: [address] [place] [address] Director: Bandar Martinez [facility] [id number] 20:34:00 Test Item Value Reference Range Interpretation Comments GLUBED (test code = GLUBED) 108 mg/dL 70-110 N [id number] 20:34:00 Test Item Value Reference Range Interpretation Comments GLUBED (test code = GLUBED) 121 mg/dL 70-110 H [id number] 20:34:00 Test Item Value Reference Range Interpretation Comments GLUBED (test code = GLUBED) 98 mg/dL 70-110 N [id number] 20:34:00 Test Item Value Reference Range Interpretation Comments GLUBED (test code = GLUBED) 132 mg/dL 70-110 H [id number] 20:34:00 Test Item Value Reference Range Interpretation Comments GLUBED (test code = GLUBED) 144 mg/dL 70-110 H [id number] 20:34:00 Test Item Value Reference Range Interpretation Comments GLUBED (test code = GLUBED) 153 mg/dL 70-110 H SARS coronavirus 2 RNA [Presence] in Respiratory specimen by JEANIE with probe [id number] 22:03:12 Test Item Value Reference Range Interpretation Comments SARS coronavirus 2 RNA Not detected Not-Detected [Presence] in Respiratory specimen by JEANIE with probe detection (test code = 94861-3) SARS coronavirus 2 RNA [Presence] in Respiratory specimen by JEANIE with probe [id number] 06:14:29 Test Item Value Reference Range Interpretation Comments SARS coronavirus 2 RNA Not detected Not-Detected [Presence] in Respiratory specimen by JEANIE with probe detection (test code = 31760-6) SARS coronavirus 2 RNA [Presence] in Respiratory specimen by JEANIE with probe [id number] 18:10:36 Test Item Value Reference Range Interpretation Comments SARS coronavirus 2 RNA [Presence] in Detected Not-Detected Respiratory specimen by JEANIE with probe detection (test code = 87514-5) SARS coronavirus 2 RNA [Presence] in Respiratory specimen by JEANIE with probe [id number] 18:29:54 Test Item Value Reference Range Interpretation Comments SARS coronavirus 2 RNA [Presence] in Detected Not-Detected Respiratory specimen by JEANIE with probe detection (test code = 43504-9) SARS coronavirus 2 RNA [Presence] in Respiratory specimen by JEANIE with probe [id number] 18:17:33 Test Item Value Reference Range Interpretation Comments SARS coronavirus 2 RNA Not detected Not-Detected [Presence] in Respiratory specimen by JEANIE with probe detection (test code = 33738-0) SARS coronavirus 2 RNA [Presence] in Respiratory specimen by JEANIE with probe [id number] 15:34:35 Test Item Value Reference Range Interpretation Comments SARS coronavirus 2 RNA [Presence] in Detected Not-Detected Respiratory specimen by JEANIE with probe detection (test code = 52446-7) C REACTIVE [id number] 20:26:00 Test Item Value Reference Range Interpretation Comments C REACTIVE PROTEIN 23.2 mg/dL 0.0-0.9 H DILUTION FACTOR 1:5 (test code = CRP) PLEASE FATOU E NOTE OF NEW CRP REFEREN CE RANGE [id number] 20:26:00 Test Item Value Reference Range Interpretation Comments INTERLEUKIN-6 82.8 pg/mL 0.0-15.5 A Results for th is test are (test code = for research pu rposes only INTERL6) by [facility] anufacturer. The performance characteristics ofthis product have no t been established. Re sults should notbe used as a diagnostic procedure witho ut confirmation of the diagnosis by another medi may established diagnosticprodu ct or procedure.Perfo rmed At: [facility] [address] [facility] [place], [place] [id number] ra Steve BARTON Ph:[phone] ST PERFORMED AT [facility] [address] [place] [address] SARS coronavirus 2 RNA [Presence] in Respiratory specimen by JEANIE with probe [id number] 14:10:15 Test Item Value Reference Range Interpretation Comments SARS coronavirus 2 RNA Not detected Not-Detected [Presence] in Respiratory specimen by JEANIE with probe detection (test code = 03861-0) [id number] 20:01:00 Test Item Value Reference Range Interpretation Comments GLUBED (test code = GLUBED) 109 mg/dL 70-110 N [id number] 08:00:00 Test Item Value Reference Range Interpretation Comments GLUBED (test code = GLUBED) 110 mg/dL 70-110 N [id number] 07:59:00 Test Item Value Reference Range Interpretation Comments GLUBED (test code = GLUBED) 120 mg/dL 70-110 H [id number] 07:58:00 Test Item Value Reference Range Interpretation Comments GLUBED (test code = GLUBED) 110 mg/dL 70-110 N [id number] 07:58:00 Test Item Value Reference Range Interpretation Comments GLUBED (test code = GLUBED) 111 mg/dL 70-110 H [id number] 07:58:00 Test Item Value Reference Range Interpretation Comments GLUBED (test code = GLUBED) 103 mg/dL 70-110 N [id number] 07:58:00 Test Item Value Reference Range Interpretation Comments GLUBED (test code = GLUBED) 117 mg/dL 70-110 H [id number] 07:58:00 Test Item Value Reference Range Interpretation Comments GLUBED (test code = GLUBED) 122 mg/dL 70-110 H [id number] 07:58:00 Test Item Value Reference Range Interpretation Comments GLUBED (test code = GLUBED) 156 mg/dL 70-110 H [id number] 07:57:00 Test Item Value Reference Range Interpretation Comments GLUBED (test code = GLUBED) 156 mg/dL 70-110 H [id number] 07:57:00 Test Item Value Reference Range Interpretation Comments GLUBED (test code = GLUBED) 135 mg/dL 70-110 H [id number] 07:57:00 Test Item Value Reference Range Interpretation Comments GLUBED (test code = GLUBED) 104 mg/dL 70-110 N C REACTIVE [id number] 12:26:00 Test Item Value Reference Range Interpretation Comments C REACTIVE PROTEIN 23.2 mg/dL 0.0-0.9 H DILUTION FACTOR 1:5 (test code = CRP) PLEASE FATOU Alvares NOTE OF NEW CRP REFEREN CE RANGE [id number] 12:26:00 Test Item Value Reference Range Interpretation Comments INTERLEUKIN-6 (test code = INTERL6) C REACTIVE [id number] 12:25:00 Test Item Value Reference Range Interpretation Comments C REACTIVE PROTEIN 23.2 mg/dL 0.0-0.9 H PLEASE Randy MCCOY NOTE OF (test code = CRP) NEW CRP RE FERENCE RANGE [id number] 12:25:00 Test Item Value Reference Range Interpretation Comments INTERLEUKIN-6 (test code = INTERL6) LACTIC DEHYDROGENASE(LDH)2019-07-22 12:17:00 Test Item Value Reference Range Interpretation Comments LACTIC DEHYDROGENASE(LDH) (test 402 Units/L 81-234 H code = LDH) [id number] 12:17:00 Test Item Value Reference Range Interpretation Comments FERRITIN (test code = LINDA) 798 ng/mL 11.0-306.8 H D-DIMER/[id number] 11:30:00 Test Item Value Reference Range Interpretation Comments D-DIMER/FSP (test 904 ng/mL 200.0-230.0 H Pe r sports coordinator code = DDIMER) recommendatio n, the CUT OFFfor the Diagnosis of PE or DVT with a 100% SENSITIV ITY &100% PREDICTIVE VALU E is suggested to be 230 ng/mL D-DIMERUNIT(DDU ). D-DIMER RESULTS MAY BE AFFECTED BY:1. HEMOGLOBI N > 100 mg/dL2. BILIRUB IN > 10 mg/dL3. TRIGLYC ERIDES > 1500 mg/dL4. Th e presence of RHEUMATIOID FACTOR may produce an over estimation of the test res ult. - XR CHEST 1 [id number] 08:20:00 FAX: Lai Martinez MD [phone] [place]: St: [facility] FAX: Olena Bowers MD [phone] -------- Name: HARLEEN ALICEA [facility] : 1955 Age/S: 64/F [address] [facility] Unit #: [id number] Loc: [address] Phys: [place] [address] Acct: [id number] Dis Date: Status: ADM IN PHONE #: [phone] Exam Date: 07/22/2019814 FAX #: [phone] Reason: sob EXAMS: CPT CODE: [id number] XR CHEST 1 V 24311 EXAM: - XR CHEST 1 V Location code:B2 HISTORY: Shortness of breath COMPARISON: 07/19/2019 FINDINGS: Frontal view of the chest is submitted. Stable cardiomediastinal silhouette. Continued worsening bilateral pulmonary infiltrates noted in both mid to lower lung zones. No large effusion or appreciable pneumothorax. No acute osseous pathology. Anterior cervical fusion again noted. IMPRESSION Continued worsening bilateral pulmonary infiltrates throughout both mid to lower lung zones, most consistent with worsening multifocal pneumonia or severe viral infectious etiology. at 0820 Reported and signed by: SABRINA ROACH M.D. CC: Lai Back MD; Olena Bowers MD Technologist: NEFTALY BOOKER Trnscrd Date/Time/By:07/22/2019 (819) : By: [email or web address] PAGE 1 Signed Report FAX: Lai Martinez MD [phone] [place]: St: ADM FAX: Olena Bowers MD [phone] Name: HARLEEN ALICEA [facility] : 1955 Age/S: 64/F [address] [facility] Unit #: [id number] Loc: [address] [place], [place]: [place] [address] Acct: [id number] Dis Date: Status: ADM IN PHONE #: [phone] Exam Date: 07/22/2019814 FAX #: [phone] Reason: sob EXAMS: CPT CODE: [id number] XR CHEST 1 V 63845 (Continued) Orig Print D/T: S: 07/22/2019 (0823) PAGE 2 Signed ReportCOMPREHENSIVE METABOLIC [id number] 06:28:00 Test Item Value Reference Range Interpretation Comments SODIUM (test code = NA) 138 mmol/l 134.0-147.0 N POTASSIUM (test code = K) 3.2 mmol/L 3.6-5.2 L CHLORIDE (test code = CL) 98 mmol/l 98.0-107.0 N CARBON DIOXIDE (test code = CO2) 32.5 mmol/l 21.0-33.0 N ANION GAP (test code = GAP) 10.7 0-20 N GLUCOSE (test code = GLU) 117 mg/dl 70.0-110.0 H BLOOD UREA NITROGEN (test code = 17 mg/dl 7.0-18.0 N BUN) CREATININE (test code = CREAT) 0.64 mg/dL 0.60-1.30 N GFR NON BLACK (test code = 98 mL/min 80-90 H GFRNONBLACK) GFR BLACK (test code = GFRBLACK) 119 mL/min 97-109 H TOTAL PROTEIN (test code = PROT) 7.5 GM/DL 6.0-8.1 N ALBUMIN (test code = ALB) 1.9 gm/dL 3.2-4.7 L CALCIUM (test code = CA) 8.5 mg/dl 8.0-10.5 N BILIRUBIN TOTAL (test code = 0.3 mg/dl 0.0-1.0 N BILT) SGOT/AST (test code = AST) 32 Units/L 15.0-37.0 N SGPT/ALT (test code = ALT) 28 Units/L 12.0-78.0 N ALKALINE PHOSPHATASE TOTAL (test 94 Units/L 50.0-136.0 N code = ALKP) [id number] 06:28:00 Test Item Value Reference Range Interpretation Comments MAGNESIUM (test code = MAG) 1.7 mg/dl 1.8-2.4 L CBC W/AUTO [id number] 06:11:00 Test Item Value Reference Range Interpretation Comments WHITE BLOOD CELL (test code = 14.3 K/mm3 4.5-11.0 H WBC) RED BLOOD CELL (test code = 3.97 M/mm3 3.80-5.20 N RBC) HEMOGLOBIN (test code = HGB) 11.8 gm/dL 12.0-16.0 L HEMATOCRIT (test code = HCT) 35.2 % 36.0-48.0 L MEAN CELL VOLUME (test code = 88.7 UM3 82.0-99.0 N MCV) MEAN CELL HGB (test code = MCH) 29.7 UUG 25.5-32.5 N MEAN CELL HGB CONCETRATION 33.5 gm/dL 29.0-35.5 N (test code = MCHC) RED CELL DISTRIBUTION WIDTH 11.6 % 11.5-15.0 N (test code = RDW) RED CELL DISTRIBUTION WIDTH SD 37.6 fL 34.8-50.2 N (test code = RDW-SD) PLATELET COUNT (test code = 386 K/mm3 150-400 N PLT) MEAN PLATELET VOLUME (test code 9.2 fl 7.4-10.4 N = MPV) NEUTROPHIL % (test code = NT%) 85.8 % 49.0-76.0 H IMMATURE GRANULOCYTE % (test 2.1 % 0.0-0.4 H code = IG%) LYMPHOCYTE % (test code = LY%) 6.2 % 23.0-38.0 L MONOCYTE % (test code = MO%) 4.5 % 1.0-10.0 N EOSINOPHIL % (test code = EO%) 1.1 % 1.0-5.0 N BASOPHIL % (test code = BA%) 0.3 % 0.0-1.0 N NEUTROPHIL # (test code = NT#) 12.3 K/mm3 2.4-6.3 H IMMATURE GRANULOCYTE # (test 0.30 x10 3/uL 0.00-0.07 H code = IG#) LYMPHOCYTE # (test code = LY#) 0.9 K/mm3 1.2-4.0 L MONOCYTE # (test code = MO#) 0.7 K/mm3 0.0-0.6 H EOSINOPHIL # (test code = EO#) 0.2 K/MM3 0.0-0.7 N BASOPHIL # (test code = BA#) 0.0 K/mm3 0.0-0.2 N COMPREHENSIVE METABOLIC [id number] 06:35:00 Test Item Value Reference Range Interpretation Comments SODIUM (test code = NA) 140 mmol/l 134.0-147.0 N POTASSIUM (test code = K) 3.5 mmol/L 3.6-5.2 L CHLORIDE (test code = CL) 99 mmol/l 98.0-107.0 N CARBON DIOXIDE (test code = CO2) 32.1 mmol/l 21.0-33.0 N ANION GAP (test code = GAP) 12.4 0-20 N GLUCOSE (test code = GLU) 128 mg/dl 70.0-110.0 H BLOOD UREA NITROGEN (test code = 15 mg/dl 7.0-18.0 N BUN) CREATININE (test code = CREAT) 0.61 mg/dL 0.60-1.30 N GFR NON BLACK (test code = 104 mL/min 80-90 H GFRNONBLACK) GFR BLACK (test code = GFRBLACK) 126 mL/min 97-109 H TOTAL PROTEIN (test code = PROT) 7.2 GM/DL 6.0-8.1 N ALBUMIN (test code = ALB) 1.9 gm/dL 3.2-4.7 L CALCIUM (test code = CA) 8.6 mg/dl 8.0-10.5 N BILIRUBIN TOTAL (test code = 0.3 mg/dl 0.0-1.0 N BILT) SGOT/AST (test code = AST) 33 Units/L 15.0-37.0 N SGPT/ALT (test code = ALT) 31 Units/L 12.0-78.0 N ALKALINE PHOSPHATASE TOTAL (test 97 Units/L 50.0-136.0 N code = ALKP) [id number] 06:35:00 Test Item Value Reference Range Interpretation Comments MAGNESIUM (test code = MAG) 1.6 mg/dl 1.8-2.4 L CBC W/AUTO [id number] 06:03:00 Test Item Value Reference Range Interpretation Comments WHITE BLOOD CELL (test code = 12.2 K/mm3 4.5-11.0 H WBC) RED BLOOD CELL (test code = 3.82 M/mm3 3.80-5.20 N RBC) HEMOGLOBIN (test code = HGB) 11.2 gm/dL 12.0-16.0 L HEMATOCRIT (test code = HCT) 33.9 % 36.0-48.0 L MEAN CELL VOLUME (test code = 88.7 UM3 82.0-99.0 N MCV) MEAN CELL HGB (test code = MCH) 29.3 UUG 25.5-32.5 N MEAN CELL HGB CONCETRATION 33.0 gm/dL 29.0-35.5 N (test code = MCHC) RED CELL DISTRIBUTION WIDTH 11.5 % 11.5-15.0 N (test code = RDW) RED CELL DISTRIBUTION WIDTH SD 36.9 fL 34.8-50.2 N (test code = RDW-SD) PLATELET COUNT (test code = 329 K/mm3 150-400 N PLT) MEAN PLATELET VOLUME (test code 9.2 fl 7.4-10.4 N = MPV) NEUTROPHIL % (test code = NT%) 83.3 % 49.0-76.0 H IMMATURE GRANULOCYTE % (test 1.8 % 0.0-0.4 H code = IG%) LYMPHOCYTE % (test code = LY%) 7.2 % 23.0-38.0 L MONOCYTE % (test code = MO%) 6.7 % 1.0-10.0 N EOSINOPHIL % (test code = EO%) 0.7 % 1.0-5.0 L BASOPHIL % (test code = BA%) 0.3 % 0.0-1.0 N NEUTROPHIL # (test code = NT#) 10.1 K/mm3 2.4-6.3 H IMMATURE GRANULOCYTE # (test 0.22 x10 3/uL 0.00-0.07 H code = IG#) LYMPHOCYTE # (test code = LY#) 0.9 K/mm3 1.2-4.0 L MONOCYTE # (test code = MO#) 0.8 K/mm3 0.0-0.6 H EOSINOPHIL # (test code = EO#) 0.1 K/MM3 0.0-0.7 N BASOPHIL # (test code = BA#) 0.0 K/mm3 0.0-0.2 N UA RFLX MICR CULT IF [id number] 13:27:00 Test Item Value Reference Range Interpretation Comments UA GLUCOSE DIPSTICK NORMAL mg/dl NORMAL (test code = DGLUU) UA BILIRUBIN DIPSTICK NEGATIVE mg/dL NEGATIVE (test code = BILU) UA KETONE DIPSTICK NEGATIVE mg/dl NEGATIVE (test code = KETU) UA SPECIFIC GRAVITY 1.015 1.000-1.030 (test code = SGU) UA BLOOD DIPSTICK 10 Tristen/micL NEGATIVE A (test code = SAVITA) Tristen/micL UA PH DIPSTICK (test 6.0 5.0-9.0 code = UCHE) UA PROTEIN DIPSTICK 15 mg/dl mg/dl NEGATIVE A (test code = PROU) UA UROBILINIOGEN NORMAL mg/dl NORMAL DIPSTICK (test code = URO) UA NITRITE DIPSTICK NEGATIVE NEGATIVE (test code = SAVANNAH) UA LEUKOCYTE ESTERASE NEGATIVE NEGATIVE DIPSTICK (test code = Gaby/micL LEUU) UA WBC (test code = NONE SEEN NONE WBCU) WBC/HPF UA SQUAMOUS CELLS 0-2 #/hpf (test code = SQU) UA CULTURE NEEDED? NO, WBC<10 Culture Chk Criteria not (test code = UACULT) Criteria met, Ur ine Culture cancelled. Indication for culture: Temperature > 100.4 FSpecimen Description: CLEAN CATCHUA RFLX MICR CULT IF [id number] 13:15:00 Test Item Value Reference Range Interpretation Comments UA GLUCOSE DIPSTICK (test NORMAL mg/dl NORMAL code = DGLUU) UA BILIRUBIN DIPSTICK NEGATIVE mg/dL NEGATIVE (test code = BILU) UA KETONE DIPSTICK (test NEGATIVE mg/dl NEGATIVE code = KETU) UA SPECIFIC GRAVITY (test 1.015 1.000-1.030 code = SGU) UA BLOOD DIPSTICK (test 10 Tristen/micL Tristen/micL NEGATIVE A code = SAVITA) UA PH DIPSTICK (test code 6.0 5.0-9.0 = UCHE) UA PROTEIN DIPSTICK (test 15 mg/dl mg/dl NEGATIVE A code = PROU) UA UROBILINIOGEN DIPSTICK NORMAL mg/dl NORMAL (test code = URO) UA NITRITE DIPSTICK (test NEGATIVE NEGATIVE code = SAVANNAH) UA LEUKOCYTE ESTERASE NEGATIVE Gaby/micL NEGATIVE DIPSTICK (test code = LEUU) UA WBC (test code = WBCU) WBC/HPF NONE UA CULTURE NEEDED? (test Criteria Culture Chk code = UACULT) Indication for culture: Temperature > 100.4 FSpecimen Description: CLEAN CATCHBASIC METABOLIC [id number] 16:58:00 Test Item Value Reference Range Interpretation Comments SODIUM (test code = NA) 141 mmol/l 134.0-147.0 N POTASSIUM (test code = K) 3.6 mmol/L 3.6-5.2 N CHLORIDE (test code = CL) 101 mmol/l 98.0-107.0 N CARBON DIOXIDE (test code = CO2) 35.8 mmol/l 21.0-33.0 H ANION GAP (test code = GAP) 7.8 0-20 N GLUCOSE (test code = GLU) 108 mg/dl 70.0-110.0 N BLOOD UREA NITROGEN (test code = 15 mg/dl 7.0-18.0 N BUN) CREATININE (test code = CREAT) 0.63 mg/dL 0.60-1.30 N GFR NON BLACK (test code = 100 mL/min 80-90 H GFRNONBLACK) GFR BLACK (test code = GFRBLACK) 121 mL/min 97-109 H CALCIUM (test code = CA) 8.5 mg/dl 8.0-10.5 N CBC W/AUTO [id number] 16:57:00 Test Item Value Reference Range Interpretation Comments WHITE BLOOD CELL (test code = 7.9 K/mm3 4.5-11.0 N WBC) RED BLOOD CELL (test code = 3.93 M/mm3 3.80-5.20 N RBC) HEMOGLOBIN (test code = HGB) 11.6 gm/dL 12.0-16.0 L HEMATOCRIT (test code = HCT) 35.5 % 36.0-48.0 L MEAN CELL VOLUME (test code = 90.3 UM3 82.0-99.0 N MCV) MEAN CELL HGB (test code = MCH) 29.5 UUG 25.5-32.5 N MEAN CELL HGB CONCETRATION 32.7 gm/dL 29.0-35.5 N (test code = MCHC) RED CELL DISTRIBUTION WIDTH 11.7 % 11.5-15.0 N (test code = RDW) RED CELL DISTRIBUTION WIDTH SD 38.2 fL 34.8-50.2 N (test code = RDW-SD) PLATELET COUNT (test code = 298 K/mm3 150-400 N PLT) MEAN PLATELET VOLUME (test code 9.8 fl 7.4-10.4 N = MPV) NEUTROPHIL % (test code = NT%) 77.8 % 49.0-76.0 H IMMATURE GRANULOCYTE % (test 1.8 % 0.0-0.4 H code = IG%) LYMPHOCYTE % (test code = LY%) 11.0 % 23.0-38.0 L MONOCYTE % (test code = MO%) 8.2 % 1.0-10.0 N EOSINOPHIL % (test code = EO%) 0.8 % 1.0-5.0 L BASOPHIL % (test code = BA%) 0.4 % 0.0-1.0 N NEUTROPHIL # (test code = NT#) 6.1 K/mm3 2.4-6.3 N IMMATURE GRANULOCYTE # (test 0.14 x10 3/uL 0.00-0.07 H code = IG#) LYMPHOCYTE # (test code = LY#) 0.9 K/mm3 1.2-4.0 L MONOCYTE # (test code = MO#) 0.6 K/mm3 0.0-0.6 N EOSINOPHIL # (test code = EO#) 0.1 K/MM3 0.0-0.7 N BASOPHIL # (test code = BA#) 0.0 K/mm3 0.0-0.2 N - XR CHEST 1 [id number] 14:00:00 FAX: Olena Bowers MD [phone] [place]: St: ADM Name: HARLEEN AILCEA [facility] : 1955 Age/S: 64/F [address] [facility] Unit #: [id number] Loc: [address] [place] [address] [place]: [place] [address] Acct: [id number] Dis Date: Status: ADM IN PHONE #: [phone] Exam Date: 07/19/2019 3395 FAX #: [phone] Reason: SOB EXAMS: CPT CODE: [id number] XR CHEST 1 V 41695 Dictation location: U19.CHEST, FRONTAL VIEW HISTORY: SOB FINDINGS: Since 07/17/19, there are worsening bilateral pulmonary opacities. The heart size is normal. Aorta is partially calcified. Anterior cervical fusion. Degenerative changes affect the thoracic spine. IMPRESSION: Worsening bilateral opacities related to multifocalpneumonia including viral. at 1400 Reported and signed by: Alexander Painter M.D. CC: Olena Bowers MD Technologist: TETO RUSSELL [facility] Date/Time/By: 07/19/2019 (1400) : By: [email or web address] PAGE 1 Signed Report FAX: Olena Bowers MD [phone] [place]: St: ADM Name: HARLEEN ALICEA [facility] : 1955 Age/S: 64/F [address] Unit #: [id number] Loc: [address] [place], [place]: [place] [address] Acct: [id number] Dis Date: Status: ADM IN PHONE #: [phone] Exam Date: 07/19/2019 1359 FAX #: [phone]: SOB EXAMS: CPT CODE: [id number] XR CHEST 1 V 43452 (Continued) Orig Print D/T: S: 07/19/2019 (1403) PAGE 2 Signed [id number] 18:01:00 Test Item Value Reference Range Interpretation Comments [id number] POSITIVE Negative A Note: this e ntry is for (test code = TRACKING purpos es only [id number]) and the alyssa twas done outside [facility], the performing entity isfound in [facility] comments.Note: this entry is for TRACKING purposes only and the te stwas done outside [facility], the performing entity isfound in [facility] comments. The test was performed at: [facility]: 07/12/19Patient's account number from transferring facility:[id number] patient's current lab results are: Positivecalled to nurse sarkis lazo on 3E with rboatzpiKDZUW-yrl-ckbOUF W/MANUAL DIFF 2019-07-17 06:15:00 Test Item Value Reference Range Interpretation Comments WHITE BLOOD CELL (test code = 16.6 K/mm3 4.5-11.0 H WBC) RED BLOOD CELL (test code = 3.66 M/mm3 3.80-5.20 L RBC) HEMOGLOBIN (test code = HGB) 11.1 gm/dL 12.0-16.0 L HEMATOCRIT (test code = HCT) 33.3 % 36.0-48.0 L MEAN CELL VOLUME (test code = 91.0 UM3 82.0-99.0 N MCV) MEAN CELL HGB (test code = MCH) 30.3 UUG 25.5-32.5 N MEAN CELL HGB CONCETRATION 33.3 gm/dL 29.0-35.5 N (test code = MCHC) RED CELL DISTRIBUTION WIDTH 12.0 % 11.5-15.0 N (test code = RDW) RED CELL DISTRIBUTION WIDTH SD 40.0 fL 34.8-50.2 N (test code = RDW-SD) PLATELET COUNT (test code = 203 K/mm3 150-400 N PLT) MEAN PLATELET VOLUME (test code 10.5 fl 7.4-10.4 H = MPV) NEUTROPHIL % (test code = NT%) 92.1 % 49.0-76.0 H IMMATURE GRANULOCYTE % (test 0.9 % 0.0-0.4 H code = IG%) LYMPHOCYTE % (test code = LY%) 4.3 % 23.0-38.0 L MONOCYTE % (test code = MO%) 2.2 % 1.0-10.0 N EOSINOPHIL % (test code = EO%) 0.2 % 1.0-5.0 L BASOPHIL % (test code = BA%) 0.3 % 0.0-1.0 N NEUTROPHIL # (test code = NT#) 15.3 K/mm3 2.4-6.3 H IMMATURE GRANULOCYTE # (test 0.15 x10 3/uL 0.00-0.07 H code = IG#) LYMPHOCYTE # (test code = LY#) 0.7 K/mm3 1.2-4.0 L MONOCYTE # (test code = MO#) 0.4 K/mm3 0.0-0.6 N EOSINOPHIL # (test code = EO#) 0.0 K/MM3 0.0-0.7 N BASOPHIL # (test code = BA#) 0.1 K/mm3 0.0-0.2 N TOTAL CELLS COUNTED (test code 100 #CELLS = TCC) SEGMENTED NEUTROPHILS (test 82 % 50.0-70.0 H code = SEG) BAND NEUTROPHIL (test code = 14 % 1.0-4.0 H BAND) LYMPHOCYTE (test code = LYMPH) 4 % 20-40 L MORPHOLOGY COMMENT (test code = NM MOC) PLATELET ESTIMATE (test code = ADQ PLTEST) PLATELET MORPHOLOGY (test code APPEAR LARGE = PLTMORPH) COMPREHENSIVE METABOLIC [id number] 04:41:00 Test Item Value Reference Range Interpretation Comments SODIUM (test code = NA) 141 mmol/l 134.0-147.0 N POTASSIUM (test code = K) 3.4 mmol/L 3.6-5.2 L CHLORIDE (test code = CL) 104 mmol/l 98.0-107.0 N CARBON DIOXIDE (test code = CO2) 31.0 mmol/l 21.0-33.0 N ANION GAP (test code = GAP) 9.4 0-20 N GLUCOSE (test code = GLU) 135 mg/dl 70.0-110.0 H BLOOD UREA NITROGEN (test code = 26 mg/dl 7.0-18.0 H BUN) CREATININE (test code = CREAT) 0.91 mg/dL 0.60-1.30 N GFR NON BLACK (test code = 65 mL/min 80-90 L GFRNONBLACK) GFR BLACK (test code = GFRBLACK) 79 mL/min 97-109 L TOTAL PROTEIN (test code = PROT) 6.9 gm/dL 6.4-8.2 N ALBUMIN (test code = ALB) 2.4 gm/dl 3.2-4.7 L CALCIUM (test code = CA) 8.0 mg/dl 8.0-10.5 N BILIRUBIN TOTAL (test code = 0.4 mg/dl 0.0-1.0 N BILT) SGOT/AST (test code = AST) 27 Units/L 15.0-37.0 N SGPT/ALT (test code = ALT) 38 Units/L 12.0-78.0 N ALKALINE PHOSPHATASE TOTAL (test 94 Units/L 50.0-136.0 N code = ALKP) [id number] 04:41:00 Test Item Value Reference Range Interpretation Comments TROPONIN-I (test <0.02 NG/ML 0.00-0.06 N REFERENCE R LILY code = TROPI) TROPONIN I HEA LTHY INDIVIDUALS: <0 .06 ng/mL R/O ISCHE JORGE: 0.07 - 0.60 ng/ mL CUT-OFF RANGE F OR AMI: 0.60 - 1.5 ng/m L CBC W/MANUAL [id number] 04:25:00 Test Item Value Reference Range Interpretation Comments WHITE BLOOD CELL (test code = 16.6 K/mm3 4.5-11.0 H WBC) RED BLOOD CELL (test code = 3.66 M/mm3 3.80-5.20 L RBC) HEMOGLOBIN (test code = HGB) 11.1 gm/dL 12.0-16.0 L HEMATOCRIT (test code = HCT) 33.3 % 36.0-48.0 L MEAN CELL VOLUME (test code = 91.0 UM3 82.0-99.0 N MCV) MEAN CELL HGB (test code = MCH) 30.3 UUG 25.5-32.5 N MEAN CELL HGB CONCETRATION 33.3 gm/dL 29.0-35.5 N (test code = MCHC) RED CELL DISTRIBUTION WIDTH 12.0 % 11.5-15.0 N (test code = RDW) RED CELL DISTRIBUTION WIDTH SD 40.0 fL 34.8-50.2 N (test code = RDW-SD) PLATELET COUNT (test code = 203 K/mm3 150-400 N PLT) MEAN PLATELET VOLUME (test code 10.5 fl 7.4-10.4 H = MPV) NEUTROPHIL % (test code = NT%) 92.1 % 49.0-76.0 H IMMATURE GRANULOCYTE % (test 0.9 % 0.0-0.4 H code = IG%) LYMPHOCYTE % (test code = LY%) 4.3 % 23.0-38.0 L MONOCYTE % (test code = MO%) 2.2 % 1.0-10.0 N EOSINOPHIL % (test code = EO%) 0.2 % 1.0-5.0 L BASOPHIL % (test code = BA%) 0.3 % 0.0-1.0 N NEUTROPHIL # (test code = NT#) 15.3 K/mm3 2.4-6.3 H IMMATURE GRANULOCYTE # (test 0.15 x10 3/uL 0.00-0.07 H code = IG#) LYMPHOCYTE # (test code = LY#) 0.7 K/mm3 1.2-4.0 L MONOCYTE # (test code = MO#) 0.4 K/mm3 0.0-0.6 N EOSINOPHIL # (test code = EO#) 0.0 K/MM3 0.0-0.7 N BASOPHIL # (test code = BA#) 0.1 K/mm3 0.0-0.2 N SEGMENTED NEUTROPHILS (test % 50.0-70.0 code = SEG) LYMPHOCYTE (test code = LYMPH) % 20-40 CBC W/MANUAL [id number] 04:24:00 Test Item Value Reference Range Interpretation Comments WHITE BLOOD CELL (test code = 16.6 K/mm3 4.5-11.0 H WBC) RED BLOOD CELL (test code = 3.66 M/mm3 3.80-5.20 L RBC) HEMOGLOBIN (test code = HGB) 11.1 gm/dL 12.0-16.0 L HEMATOCRIT (test code = HCT) 33.3 % 36.0-48.0 L MEAN CELL VOLUME (test code = 91.0 UM3 82.0-99.0 N MCV) MEAN CELL HGB (test code = MCH) 30.3 UUG 25.5-32.5 N MEAN CELL HGB CONCETRATION 33.3 gm/dL 29.0-35.5 N (test code = MCHC) RED CELL DISTRIBUTION WIDTH 12.0 % 11.5-15.0 N (test code = RDW) RED CELL DISTRIBUTION WIDTH SD 40.0 fL 34.8-50.2 N (test code = RDW-SD) PLATELET COUNT (test code = 203 K/mm3 150-400 N PLT) MEAN PLATELET VOLUME (test code 10.5 fl 7.4-10.4 H = MPV) NEUTROPHIL % (test code = NT%) 92.1 % 49.0-76.0 H IMMATURE GRANULOCYTE % (test 0.9 % 0.0-0.4 H code = IG%) LYMPHOCYTE % (test code = LY%) 4.3 % 23.0-38.0 L MONOCYTE % (test code = MO%) 2.2 % 1.0-10.0 N EOSINOPHIL % (test code = EO%) 0.2 % 1.0-5.0 L BASOPHIL % (test code = BA%) 0.3 % 0.0-1.0 N NEUTROPHIL # (test code = NT#) 15.3 K/mm3 2.4-6.3 H IMMATURE GRANULOCYTE # (test 0.15 x10 3/uL 0.00-0.07 H code = IG#) LYMPHOCYTE # (test code = LY#) 0.7 K/mm3 1.2-4.0 L MONOCYTE # (test code = MO#) 0.4 K/mm3 0.0-0.6 N EOSINOPHIL # (test code = EO#) 0.0 K/MM3 0.0-0.7 N BASOPHIL # (test code = BA#) 0.1 K/mm3 0.0-0.2 N SEGMENTED NEUTROPHILS (test % 50.0-70.0 code = SEG) LYMPHOCYTE (test code = LYMPH) % 20-40 - XR CHEST 1 [id number] 04:23:00 FAX: Alma Grossman MD [place]: St: REG Name: HARLEEN ALICEA [facility] : 1955 Age/S: 64/F [address] [facility] Unit #: [id number] Loc: [place], [place]: [place] [id number] Acct: [id number] Dis Date: Status: REG ER PHONE #: [phone] Exam Date: 07/17/2019421 FAX #: [phone] Reason: SOB EXAMS: CPT CODE: [id number] XR CHEST 1 V 01215 DICTATION LOCATION: 8 HISTORY: Female, 64 years of age with dyspnea on exertion EXAM: CHEST X-RAY, ONE VIEW COMPARISON: 06/09/2009 COMMENT: Frontal view of the chest is provided. There are patchy interstitial opacities in both lungs, most prominent in lower lobes. No behzad lobar consolidation or significant effusion. Cardiac silhouette is enlarged and calcified plaque noted in aorta. No acute bony abnormalities. IMPRESSION: Multifocalinterstitial pneumonia. at 0423 Reported and signed by: Nieves Cook M.D. CC: Alma Guan MD Technologist: RT Jamar(Ada) Trnscrd Date/Time/By: 07/17/2019 (0423) : By: RubenCLW PAGE 1 Signed Report FAX: Alma Grossman MD [place]: St: REG ---- Name: HARLEEN ALICEA [facility] : 1955 Age/S: 64/F [address] [facility] Unit #: [id number] Loc: [place], [place]: [place] [id number] Acct: [id number] Dis Date: Status: REG ER PHONE #: [phone] Exam Date: 07/17/2019421 FAX #: [phone] Reason: SOB EXAMS: CPT CODE: [id number] XR CHEST 1 V 41280 (Continued) Orig Print D/T: S: 07/17/2019 (0426) PAGE2 Signed Report
[2021-11-22] MEDS ORDERED: KETOROLAC 30 MG/ML INJ ONE (11:20)
--- NOTE | 2021-11-22 11:34 | RAD REPORT ---
EXAM DESCRIPTION: USExtrem Venous W Compress Bil11/22/2021 11:27 am CLINICAL HISTORY: Leg pain COMPARISON: 2008 FINDINGS: The common femoral, superficial femoral, popliteal and posterior tibial veins bilaterally are compressible and demonstrate augmentation. Doppler demonstrates good flow. Grayscale, color and spectral analysis performed on all vessels IMPRESSION: No evidence of deep venous thrombosis involving either lower extremity.
[2021-11-22 11:48] LABS: Absolute Lymphocytes (CBC) 1.8 K/uL (0.7-4.9); Hematocrit 38.4 % (36.0-45.0); Lymphocytes % 30.7 % (15.3-44.8); MCV 86.4 fL (80-100); MPV 9.2 fL (7.6-11.3); RBC Red Blood Cell Count 4.44 M/uL (3.86-4.86)
[2021-11-22 12:08] LABS: Albumin 3.7 g/dL (3.4-5.0); Bilirubin Direct 0.1 mg/dL (0-0.2); Bilirubin Total 0.6 mg/dL (0.2-1.0); Magnesium 1.9 mg/dL (1.8-2.4); Potassium 3.6 mmol/L (3.5-5.1); Protein, Total 7.7 g/dL (6.4-8.2); Troponin High Sensitivity 46.4 pg/mL (<58.9)
--- NOTE | 2021-11-22 12:12 | RAD REPORT ---
EXAM DESCRIPTION: [place] Single View11/22/2021 11:09 am CLINICAL HISTORY: Shortness of breath COMPARISON: 2018 FINDINGS: The lungs appear clear of acute infiltrate. The heart is normal size IMPRESSION: No acute abnormalities displayed
--- NOTE | 2021-11-22 13:13 | EDPHYS ---
Physician Documentation [facility] Name: Sofia Syed Age: 66 yrs Sex: Female : 1955 Arrival Date: 11/22/2021 Time: : Bed 16 Private MD: ED Physician Glenroy Tipton HPI: 11/22 11:00 This 66 yrs old Female presents to ER via Ambulatory with complaints of cp Shortness Of Breath. 11:00 The patient presents with pain, that is acute. The complaints affect the right leg and cp left leg. 11:00 Context: resulted from an unknown cause, the patient can fully bear weight, the patient cp is able to ambulate, with mild difficulty. Onset: The symptoms/episode began/occurred yesterday. The patient has shortness of breath at rest. Associated signs and symptoms: Pertinent negatives: chest pain, diaphoresis, fever, hemoptysis, vomiting. Treatment prior to arrival includes: no previous treatment. Severity of symptoms: in the emergency department the symptoms are unchanged, despite home interventions. Historical: - Allergies: 10: PENICILLINS; iw - PMHx: 10:31 Diabetes - NIDDM; Dyspepsia; Hypertension; lymphedema; iw - Immunization history:: Client reports receiving the 2nd dose of the Covid vaccine. - Social history:: Smoking status: Patient denies any tobacco usage or history of. ROS: 11:05 Constitutional: Negative for body aches, chills, fever, poor PO intake. cp 11:05 Eyes: Negative for injury, pain, redness, and discharge. cp 11:05 ENT: Negative for drainage from ear(s), ear pain, sore throat, difficulty swallowing, difficulty handling secretions. 11:05 Cardiovascular: Negative for chest pain, edema, palpitations. 11:05 Respiratory: Positive for shortness of breath, at rest. Negative for cough, wheezing. 11:05 Abdomen/GI: Negative for abdominal pain, nausea, vomiting, and diarrhea. 11:05 Back: Negative for pain at rest, pain with movement. 11:05 MS/extremity: Positive for pain, tenderness, of the right leg and left leg, Negative for injury or acute deformity, decreased range of motion, paresthesias. 11:05 Skin: Negative for cellulitis, rash. 11:05 Neuro: Negative for altered mental status, dizziness, numbness, weakness. 11:05 All other systems are negative. Exam: 11:10 Constitutional: The patient appears in no acute distress, alert, awake, cp non-diaphoretic, non-toxic, well developed, well nourished. 11:10 Head/Face: Normocephalic, atraumatic. cp 11:10 Eyes: Periorbital structures: appear normal, Conjunctiva: normal, no exudate, no injection, Sclera: no appreciated abnormality, Lids and lashes: appear normal, bilaterally. 11:10 ENT: External ear(s): are unremarkable, Nose: is normal, Mouth: Lips: moist, Oral mucosa: pink and intact, moist, Posterior pharynx: is normal, airway is patent, no erythema, no exudate. 11:10 Neck: ROM/movement: is normal, is supple, without pain, no range of motions limitations. 11:10 Chest/axilla: Inspection: normal. 11:10 Cardiovascular: Rate: Rhythm: regular, Edema: is not appreciated, JVD: is not appreciated. 11:10 Respiratory: the patient does not display signs of respiratory distress, Respirations: normal, no use of accessory muscles, no retractions, labored breathing, is not present, Breath sounds: are clear throughout, no decreased breath sounds, no stridor, no wheezing. 11:10 Abdomen/GI: Inspection: abdomen appears normal, Palpation: abdomen is soft and non-tender, in all quadrants. 11:10 Back: pain, is absent, ROM is normal. 11:10 Skin: cellulitis, is not appreciated, no rash present. 11:10 Neuro: Orientation: to person, place \T\ time. Mentation: is normal, Motor: moves all fours, strength is normal, Sensation: is normal. 11:47 ECG was reviewed by the Attending Physician. cp Vital Signs: 10:29 BP 175 / 75; Pulse 67; Resp 16; Temp 97.6; Pulse Ox 100% on R/A; Weight 72.57 kg; iw Height 5 ft. 6 in. (167.64 cm) (M); 11:56 BP 191 / 80; Pulse 61; Resp 16; Pulse Ox 99% ; bp 13:07 BP 178 / 78; Pulse 59; Resp 16; Pulse Ox 100% ; bp 10:29 Body Mass Index 25.82 (72.57 kg, 167.64 cm) iw MDM: 10:38 Patient medically screened. 13:12 Data reviewed: vital signs, nurses notes, lab test result(s), EKG, radiologic studies, cp ultrasound. 13:12 Test interpretation: by ED physician or midlevel provider: ECG, plain radiologic cp studies. ED course: VSS. Pain improved with meds. Will discharge to home for continued monitoring. 11/22 10:56 Order name: Basic Metabolic Panel; Complete Time: 12:15 cp 11/22 12:15 Interpretation: Normal except: CL 108. cp 11/22 10:56 Order name: CBC with Diff; Complete Time: 12:15 cp 11/22 12:15 Interpretation: Normal except: MCV 86.4. 11/22 10:56 Order name: LFT's; Complete Time: 12:15 cp 11/22 12:15 Interpretation: Normal except: GLOB 4.0; A/G 0.9. 11/22 10:56 Order name: Magnesium; Complete Time: 12:15 cp 11/22 10:56 Order name: NT PRO-BNP; Complete Time: 12:15 cp 11/22 10:56 Order name: PT-INR; Complete Time: 12:41 cp 11/22 10:56 Order name: Troponin HS; Complete Time: 12:15 cp 11/22 10:56 Order name: XRAY Chest (1 view); Complete Time: 12:15 cp 11/22 10:56 Order name: US Extremity Venous W Compression Alber; Complete Time: 12:15 11/22 12:16 Interpretation: Report reviewed. 11/22 12:17 Order name: LAB Add On 11/22 12:19 Order name: D-Dimer; Complete Time: 12:41 EDMS 11/22 10:56 Order name: EKG; Complete Time: 10:57 cp 11/22 10:56 Order name: Cardiac monitoring; Complete Time: 11:07 cp 11/22 10:56 Order name: EKG - Nurse/Tech; Complete Time: 11:53 cp 11/22 10:56 Order name: IV Saline Lock; Complete Time: 11:53 cp 11/22 10:56 Order name: Labs collected and sent; Complete Time: 11:53 cp 11/22 10:56 Order name: O2 Per Protocol; Complete Time: 11:07 cp 11/22 10:56 Order name: O2 Sat Monitoring; Complete Time: : cp EC:47 Rate is 60 beats/min. Rhythm is regular. DC interval is normal. QRS interval is normal. cp QT interval is normal. T waves are Inverted in lead aVR. Interpreted by me. Reviewed by me. Administered Medications: 11:30 Drug: Ketorolac 15 mg Route: IVP; Site: left antecubital; bp 13:05 Follow up: Response: No adverse reaction bp 13:10 Drug: Tylenol 1000 mg Route: PO; bp 13:35 Follow up: Response: No adverse reaction bp Disposition: 17:53 Co-signature as Attending Physician, Glenroy Tipton MD I agree with the assessment and kdr plan of care. Disposition Summary: 11/22/21 13:12 Discharge Ordered Location: Home cp Problem: new cp Symptoms: have improved cp Condition: Stable cp Diagnosis - Pain in left leg cp - Pain in right leg cp - Dorsalgia, unspecified cp - Shortness of breath cp Followup: cp - With: Private Physician - When: 2 - 3 days - Reason: Recheck today's complaints Discharge Instructions: - Discharge Summary Sheet cp - Acute Back Pain, Adult cp - Musculoskeletal Pain cp - Shortness of Breath, Adult cp Forms: - Medication Reconciliation Form cp - Thank You Letter cp - Antibiotic Education cp - Prescription Opioid Use cp Prescriptions: - Cyclobenzaprine 10 mg Oral Tablet - take 1 tablet by ORAL route every 8 hours As needed; 20 tablet; Refills: 0, cp Product Selection Permitted - Diclofenac Sodium 75 mg Oral Tablet Sustained Release - take 1 tablet by ORAL route 2 times per day; 30 tablet; Refills: 0, Product cp Selection Permitted Signatures: Dispatcher [employer] EDMI Glenroy Tipton MD MD kdr Jennifer Solo RN RN iw Volodymyr Menard PA PA cp Adriano Winkler, RN RN bp Corrections: (The following items were deleted from the chart) 12:30 12:18 D-DIMER+[email or web address].BRZ ordered. EDMS EDMS
--- NOTE | 2021-11-22 13:13 | ER ---
Nurse's Notes [facility] Name: Sofia Syed Age: 66 yrs Sex: Female : 1955 Arrival Date: 11/22/2021 Time: 10:26 Bed 16 Private MD: Diagnosis: Pain in left leg;Pain in right leg;Dorsalgia, unspecified;Shortness of breath Presentation: 11/22 10:29 Chief complaint: Patient states: last night my right leg was hurting and radiated up iw into hip, this morning I feel pain in my back, this morning I feel like I am tired when breathe , denies fever or chills, denies cough or chest pain. Coronavirus screen: Client presents with at least one sign or symptom that may indicate coronavirus-19. Ebola Screen: Patient negative for fever greater than or equal to 101.5 degrees Fahrenheit, and additional compatible Ebola Virus Disease symptoms Patient denies exposure to infectious person. Patient denies travel to an Ebola-affected area in the 21 days before illness onset. No symptoms or risks identified at this time. Initial Sepsis Screen: Does the patient meet any 2 criteria? No. Patient's initial sepsis screen is negative. Does the patient have a suspected source of infection? No. Patient's initial sepsis screen is negative. Risk Assessment: Do you want to hurt yourself or someone else? Patient reports no desire to harm self or others. Onset of symptoms was October 2021. 10:29 Method Of Arrival: Ambulatory iw 10:29 Acuity: GILBERTO 3 iw Triage Assessment: 10:30 General: Appears in no apparent distress. comfortable, Behavior is cooperative, bp appropriate for age, anxious. Pain: Complains of pain in right leg. EENT: No deficits noted. Neuro: No deficits noted. Cardiovascular: Rhythm is sinus rhythm. Respiratory: Reports shortness of breath Onset: The symptoms/episode began/occurred at an unknown time. the patient reports symptoms have resolved. GI: No signs and/or symptoms were reported involving the gastrointestinal system. : No signs and/or symptoms were reported regarding the genitourinary system. Derm: No deficits noted. Musculoskeletal: No deficits noted. Historical: - Allergies: 10:31 PENICILLINS; iw - PMHx: 10:31 Diabetes - NIDDM; Dyspepsia; Hypertension; lymphedema; iw - Immunization history:: Client reports receiving the 2nd dose of the Covid vaccine. - Social history:: Smoking status: Patient denies any tobacco usage or history of. Screenin:55 Abuse screen: Denies threats or abuse. Denies injuries from another. Nutritional bp screening: No deficits noted. Tuberculosis screening: No symptoms or risk factors identified. Fall Risk None identified. Assessment: 10:30 General: SEE TRIAGE NOTE. Cardiovascular: Rhythm is sinus rhythm. Respiratory: Airway bp is patent Respiratory effort is even, unlabored, Breath sounds are clear bilaterally. 11:55 Reassessment: No changes from previously documented assessment. Patient and/or family bp updated on plan of care and expected duration. Pain level reassessed. Vital Signs: 10:29 BP 175 / 75; Pulse 67; Resp 16; Temp 97.6; Pulse Ox 100% on R/A; Weight 72.57 kg; iw Height 5 ft. 6 in. (167.64 cm) (M); 11:56 BP 191 / 80; Pulse 61; Resp 16; Pulse Ox 99% ; bp 13:07 BP 178 / 78; Pulse 59; Resp 16; Pulse Ox 100% ; bp 10:29 Body Mass Index 25.82 (72.57 kg, 167.64 cm) iw ED Course: 10:26 Patient arrived in ED. as 10:31 Triage completed. iw 10:31 Arm band placed on. iw 10:32 Volodymyr Menard PA is PHCP. cp 10:32 Glenroy Tipton MD is Attending Physician. cp 10:39 Adriano Winkler, JOSIANE is Primary Nurse. bp 11:11 XRAY Chest (1 view) In Process Unspecified. EDMS 11:29 US Extremity Venous W Compression Alber In Process Unspecified. EDMS 11:30 Inserted saline lock: 22 gauge in left antecubital area, using aseptic technique. Blood bp collected. 11:55 Patient has correct armband on for positive identification. Bed in low position. Call bp light in reach. Side rails up X2. 13:36 No provider procedures requiring assistance completed. IV discontinued, intact, bp bleeding controlled, No redness/swelling at site. Pressure dressing applied. Administered Medications: 11:30 Drug: Ketorolac 15 mg Route: IVP; Site: left antecubital; bp 13:05 Follow up: Response: No adverse reaction bp 13:10 Drug: Tylenol 1000 mg Route: PO; bp 13:35 Follow up: Response: No adverse reaction bp Medication: 11:55 VIS not applicable for this client. bp Outcome: 13:12 Discharge ordered by . cp 13:36 Discharged to home ambulatory, with family. bp 13:36 Condition: stable 13:36 Discharge instructions given to patient, Instructed on discharge instructions, follow up and referral plans. medication usage, Demonstrated understanding of instructions, follow-up care, medications, Prescriptions given X 2. 13:37 Patient left the ED. bp Signatures: Dispatcher [employer] Neeta Oden Irene, JOSIANE RN iw Volodymyr Menard, JOSE MARTIN PA Adriano Gonzalez, JOSIANE RN bp Corrections: (The following items were deleted from the chart) 10:32 10:29 BP 175 / 75; Pulse 67bpm; Resp 16bpm; Pulse Ox 100% RA; Temp 97.6F; 72.57 kg; iw Height 5 ft. 2 in.; BMI: 29.2; iw
[2021-11-22] MEDS ORDERED: ACETAMINOPHEN 500 MG TAB ONE (13:19)
[2021-11-22 14:06] VITALS: TEMP 97.6
[2021-11-22 14:18] VITALS: BP 178/78; O2SAT 100
== END 2021-11-22 13:37 | disposition home or self-care (01) ==
LOC: ER 10:23
DX: M79.605 Pain in left leg (principal); M79.604 Pain in right leg; M54.9 Dorsalgia, unspecified; R06.02 Shortness of breath; E11.9 Type 2 diabetes mellitus without complications; I10 Essential (primary) hypertension; Z88.0 Allergy status to penicillin
CPT/HCPCS: 36415; 71045; 80048; 80076; 83735; 83880; 84484; 85025; 85379; 85610; 93970; 96374; 99284

== ENCOUNTER 2022-11-18 09:46 | Emergency (ER) | payer MEDICARE ==
--- OUTSIDE RECORDS SUMMARY | 2022-11-18 11:14 | XMS REPORT | Continuity of Care Document ---
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 CHEW, [facility] [place] 00 form: CHEWTAB, ONCE, Dosing Weight 70.6, kg, Priority: STAT, Start date: 11/24/21 3:13:00 CDT, Stop date: 11/24/21 3:13:00 CDT aspirin 2022-0 No 324 mg, [facility] 8 Route: l 08:13: CHEW, [facility] [place] 00 form: CHEWTAB, ONCE, Dosing Weight 70.6, kg, Priority: STAT, Start date: 11/24/21 3:13:00 CDT, Stop date: 11/24/21 3:13:00 CDT aspirin 2022-0 No 324 mg, [facility] 8 Route: l 08:13: CHEW, [facility] [place] 00 form: CHEWTAB, ONCE, Dosing Weight 70.6, kg, Priority: STAT, Start date: 11/24/21 3:13:00 CDT, Stop date: 11/24/21 3:13:00 CDT aspirin 2022-0 No 324 mg, [facility] 8 Route: l 08:13: CHEW, [facility] [place] 00 form: CHEWTAB, ONCE, Dosing Weight 70.6, kg, Priority: STAT, Start date: 11/24/21 3:13:00 CDT, Stop date: 11/24/21 3:13:00 CDT aspirin 2022-0 No 324 mg, [facility] 8 Route: l 08:13: CHEW, [facility] [place] 00 form: CHEWTAB, ONCE, Dosing Weight 70.6, kg, Priority: STAT, Start date: 11/24/21 3:13:00 CDT, Stop date: 11/24/21 3:13:00 CDT aspirin 2022-0 No 324 mg, [facility] 8 Route: l 08:13: CHEW, [facility] [place] 00 form: CHEWTAB, ONCE, Dosing Weight 70.6, kg, Priority: STAT, Start date: 11/24/21 3:13:00 CDT, Stop date: 11/24/21 3:13:00 CDT aspirin 2022-0 No 324 mg, [facility] 8 Route: l 08:13: CHEW, [facility] [place] 00 form: CHEWTAB, ONCE, Dosing Weight 70.6, kg, Priority: STAT, Start date: 11/24/21 3:13:00 CDT, Stop date: 11/24/21 3:13:00 CDT aspirin 2022-0 No 324 mg, [facility] 8 Route: l 08:13: CHEW, [facility] [place] 00 form: CHEWTAB, ONCE, Dosing Weight 70.6, kg, Priority: STAT, Start date: 11/24/21 3:13:00 CDT, Stop date: 11/24/21 3:13:00 CDT aspirin 2022-0 No 324 mg, [facility] 11-24 Route: l 08:13: CHEW, [facility] [place] 00 form: CHEWTAB, ONCE, Dosing Weight 70.6, kg, Priority: STAT, Start date: 11/24/21 3:13:00 CDT, Stop date: 11/24/21 3:13:00 CDT aspirin 2022-0 No 324 mg, [facility] 11-24 Route: l 08:13: CHEW, [facility] [place] form: CHEWTAB, ONCE, Dosing Weight 70.6, kg, Priority: STAT, Start date: 11/24/21 3:13:00 CDT, Stop date: 11/24/21 3:13:00 CDT aspirin 2022-0 No 324 mg, [facility] 11-24 Route: l 08:13: CHEW, [facility] [place] form: CHEWTAB, ONCE, Dosing Weight 70.6, kg, Priority: STAT, Start date: 11/24/21 3:13:00 CDT, Stop date: 11/24/21 3:13:00 CDT aspirin 2-0 No 324 mg, [facility] 11-24 Route: l 08:13: CHEW, [facility] [place] form: CHEWTAB, ONCE, Dosing Weight 70.6, kg, Priority: STAT, Start date: 11/24/21 3:13:00 CDT, Stop date: 11/24/21 3:13:00 CDT aspirin 2022-0 No 324 mg, [facility] 11-24 Route: l 08:13: CHEW, [facility] [place] 00 form: CHEWTAB, ONCE, Dosing Weight 70.6, kg, Priority: STAT, Start date: 11/24/21 3:13:00 CDT, Stop date: 11/24/21 3:13:00 CDT aspirin 2022-0 No 324 mg, [facility] 11-24 Route: l 08:13: CHEW, [facility] [place] 00 form: CHEWTAB, ONCE, Dosing Weight 70.6, kg, Priority: STAT, Start date: 11/24/21 3:13:00 CDT, Stop date: 11/24/21 3:13:00 CDT aspirin 2022-0 No 324 mg, [facility] 11-24 Route: l 08:13: CHEW, [facility] [place] form: CHEWTAB, ONCE, Dosing Weight 70.6, kg, Priority: STAT, Start date: 11/24/21 3:13:00 CDT, Stop date: 11/24/21 3:13:00 CDT aspirin 2022-0 No 324 mg, [facility] 11-24 Route: l 08:13: CHEW, [facility] [place] form: CHEWTAB, ONCE, Dosing Weight 70.6, kg, Priority: STAT, Start date: 11/24/21 3:13:00 CDT, Stop date: 11/24/21 3:13:00 CDT aspirin 2-0 No 324 mg, [facility] 11-24 Route: l 08:13: CHEW, [facility] [place] form: CHEWTAB, ONCE, Dosing Weight 70.6, kg, Priority: STAT, Start date: 11/24/21 3:13:00 CDT, Stop date: 11/24/21 3:13:00 CDT aspirin 2-0 No 324 mg, [facility] 11-24 Route: l 08:13: CHEW, [facility] [place] form: CHEWTAB, ONCE, Dosing Weight 70.6, kg, Priority: STAT, Start date: 11/24/21 3:13:00 CDT, Stop date: 11/24/21 3:13:00 CDT aspirin 2022-0 No 324 mg, [facility] 11-24 Route: l 08:13: CHEW, [facility] [place] form: CHEWTAB, ONCE, Dosing Weight 70.6, kg, Priority: STAT, Start date: 11/24/21 3:13:00 CDT, Stop date: 11/24/21 3:13:00 CDT aspirin 2022-0 No 324 mg, [facility] 8 Route: l 08:13: CHEW, [facility] [place] 00 form: CHEWTAB, ONCE, Dosing Weight 70.6, kg, Priority: STAT, Start date: 11/24/21 3:13:00 CDT, Stop date: 11/24/21 3:13:00 CDT aspirin 2022-0 No 324 mg, [facility] 8 Route: l 08:13: CHEW, [facility] [place] form: CHEWTAB, ONCE, Dosing Weight 70.6, kg, Priority: STAT, Start date: 11/24/21 3:13:00 CDT, Stop date: 11/24/21 3:13:00 CDT aspirin 2022-0 No 324 mg, [facility] 11-24 Route: l 08:13: CHEW, [facility] [place] 00 form: CHEWTAB, ONCE, Dosing Weight 70.6, kg, Priority: STAT, Start date: 11/24/21 3:13:00 CDT, Stop date: 11/24/21 3:13:00 CDT aspirin 2-0 No 324 mg, [facility] 11-24 Route: l 08:13: CHEW, [facility] [place] 00 form: CHEWTAB, ONCE, Dosing Weight 70.6, kg, Priority: STAT, Start date: 11/24/21 3:13:00 CDT, Stop date: 11/24/21 3:13:00 CDT aspirin 2021-0 No 324 mg, [facility] 11-24 Route: l 08:13: CHEW, [facility] [place] form: CHEWTAB, ONCE, Dosing Weight 70.6, kg, Priority: STAT, Start date: 11/24/21 3:13:00 CDT, Stop date: 11/24/21 3:13:00 CDT aspirin 2021-0 No 324 mg, [facility] 11-24 Route: l 08:13: CHEW, [facility] [place] 00 form: CHEWTAB, ONCE, Dosing Weight 70.6, kg, Priority: STAT, Start date: 11/24/21 3:13:00 CDT, Stop date: 11/24/21 3:13:00 CDT aspirin 2-0 No 324 mg, [facility] 11-24 Route: l 08:13: CHEW, [facility] [place] 00 form: CHEWTAB, ONCE, Dosing Weight 70.6, kg, Priority: STAT, Start date: 11/24/21 3:13:00 CDT, Stop date: 11/24/21 3:13:00 CDT aspirin 2021-0 No 324 mg, [facility] 11-24 Route: l 08:13: CHEW, [facility] [place] 00 form: CHEWTAB, ONCE, Dosing Weight 70.6, kg, Priority: STAT, Start date: 11/24/21 3:13:00 CDT, Stop date: 08/28/22 3:13:00 CDT aspirin 2022-0 No 324 mg, [facility] 8 Route: l 08:13: CHEW, Drug form: CHEWTAB, ONCE, Dosing Weight 70.6, kg, Priority: STAT, Start date: 11/24/21 3:13:00 CDT, Stop date: 11/24/21 3:13:00 CDT ergocalcife Yes TAKE 1 [facility] rol 8-[address] (VITAMIN 00:00: MOUTH ONE [facility] D2) 50,000 00 TIME PER l unit WEEK capsule ergocalcife Yes TAKE 1 [facility] rol 8-[address] (VITAMIN 00:00: MOUTH ONE [facility] D2) 50,000 00 TIME PER l unit WEEK capsule ergocalcife Yes TAKE 1 [facility] rol 8-[address] (VITAMIN 00:00: MOUTH ONE [facility] D2) 50,000 00 TIME PER l unit WEEK capsule ergocalcife 2022- No TAKE 1 [facility] rol 8-20 05-[address] (VITAMIN 00:00: 00:00 MOUTH ONE [facility] D2) 50,000 00 :00 TIME PER l unit WEEK capsule multivit-mi Yes 1{tbl} Take 1 [facility] n/iron/foli 7-[address] c/lutein 14:29: mouth [facility]osp[facility] (CENTRUM 42 daily. 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 cephalexin 2021- No [id number] 500mg Q.5D Take 1 [facility] (Keflex) 10-[address] 500 MG 00:00: 04:59 (500 mg [facility]osp[facility] capsule 00 :00 total) by l mouth 2 (two) times a day for 10 days. cephalexin 2021- No [id number] 500mg Q.5D Take 1 [facility] (Keflex) 10-[address] 500 MG 00:00: 04:59 (500 mg [facility]osp[facility] capsule 00 :00 total) by l mouth 2 (two) times a day for 10 days. cephalexin 0 2021- No [id number] 500mg Q.5D Take 1 [facility] (Keflex) 7-26 08-[address] 500 MG 00:00: 04:59 (500 mg [facility]osp[facility] capsule 00 :00 total) by l mouth 2 (two) times a day for 10 days. lisinopriL 0 Yes TAKE 1 [facility] (PRINIVIL) 7-[address] 40 mg 00:00: MOUTH [facility] tablet 00 EVERY DAY l lisinopriL 0 Yes TAKE 1 [facility] (PRINIVIL) 7-[address] 40 mg 00:00: MOUTH [facility] tablet 00 EVERY DAY l lisinopriL 0 Yes TAKE 1 [facility] di (PRINIVIL) 7-[address] 40 mg 00:00: MOUTH [facility] tablet 00 EVERY DAY l lisinopriL 0 Yes TAKE 1 [facility]o di (PRINIVIL) 7-25 [...] [facility] 25 MG 00 l tablet hydroCHLORO 0 Yes TAKE 1 [facility] thiazide 7-[address] (HYDRODIURI 00:00: (12.5 MG [facility] L) 12.5 MG 00 TOTAL) BY l tablet MOUTH EVERY MORNING FOR 90 DAYS. hydroCHLORO 0 Yes TAKE 1 [facility] thiazide 7-[address] (HYDRODIURI 00:00: (12.5 MG [facility] L) 12.5 MG 00 TOTAL) BY l tablet MOUTH EVERY MORNING FOR 90 DAYS. hydroCHLORO 0 2022- No TAKE 1 [facility] thiazide 7-17 04-[address] (HYDRODIURI 00:00: 00:00 (12.5 MG H [facility] L) 12.5 MG 00 :00 TOTAL) BY l tablet MOUTH EVERY MORNING FOR 90 DAYS. spironolact 2022-0 2022- No 25mg QD Take 25 mg [facility] one 10-13- by mouth st (ALDACTONE) 00:00: 00:00 daily. [facility] 25 MG 00 :00 l tablet spironolact 2022-0 2022- No 25mg QD Take 25 mg [facility] one 10-13- by mouth st (ALDACTONE) 00:00: 00:00 daily. [facility] 25 MG 00 :00 l tablet spironolact 2022-0 2022- No 25mg QD Take 25 mg [facility] one 10-13- by mouth st (ALDACTONE) 00:00: 00:00 daily. [facility] 25 MG 00 :00 l tablet lactulose 2022-0 Yes [id number] TAKE 15 ML [facility] (CHRONULAC) 6-03 ([address] 10 gram/15 00:00: TOTAL) BY [facility] mL solution 00 MOUTH 3 l (THREE) TIMES A DAY FOR 90 DAYS. lactulose 2022-0 Yes [id number] TAKE 15 ML [facility] (CHRONULAC) 6-03 ([address] 10 gram/15 00:00: TOTAL) BY [facility] mL solution 00 MOUTH 3 l (THREE) TIMES A DAY FOR 90 DAYS. lactulose 2022-0 Yes [id number] TAKE 15 ML [facility] (CHRONULAC) 6-03 ([address] 10 gram/15 00:00: TOTAL) BY [facility] mL solution 00 MOUTH 3 l (THREE) TIMES A DAY FOR 90 DAYS. lactulose 2022-0 Yes [id number] TAKE 15 ML [facility] (CHRONULAC) 6-03 ([address] 10 gram/15 00:00: TOTAL) BY Ho [facility] mL solution 00 MOUTH 3 l (THREE) TIMES A DAY FOR 90 DAYS. lactulose 2022-0 2022- No [id number] TAKE 15 ML [facility] (CHRONULAC) 5-19 06-03 ([address] 10 gram/15 00:00: 00:00 TOTAL) BY H [facility] mL solution 00 :00 MOUTH 3 l (THREE) TIMES A DAY FOR 90 DAYS. lactulose 2022-0 2022- No [id number] TAKE 15 ML [facility] (CHRONULAC) 5-19 06-03 ([address] 10 gram/15 00:00: 00:00 TOTAL) BY H [facility] mL solution 00 :00 MOUTH 3 l (THREE) TIMES A DAY FOR 90 DAYS. lactulose 2021- No [id number] TAKE 15 ML [facility] (CHRONULAC) 08-15 ([address] 10 gram/15 00:00: 00:00 TOTAL) BY H [facility] mL solution 00 :00 MOUTH 3 l (THREE) TIMES A DAY FOR 90 DAYS. metFORMIN Yes TAKE 1 [facility] XR -[address] (GLUCOPHAGE 00:00: MOUTH [facility] -XR) 500 mg 00 EVERY DAY l 24 hr WITH tablet BREAKFAST metFORMIN 2021- No TAKE 1 [facility] XR 07-[address] (GLUCOPHAGE 00:00: 00:00 MOUTH [facility] -XR) 500 mg 00 :00 EVERY DAY l 24 hr WITH tablet BREAKFAST metFORMIN 2021- No TAKE 1 [facility] di XR 07-[address] (GLUCOPHAGE 00:00: 00:00 MOUTH [facility] -XR) 500 mg 00 :00 EVERY DAY l 24 hr WITH tablet BREAKFAST metFORMIN 2021- No TAKE 1 [facility] di XR 07-[address] (GLUCOPHAGE 00:00: 00:00 MOUTH [facility] -XR) 500 mg 00 :00 EVERY DAY l 24 hr WITH tablet BREAKFAST pravastatin 2022- No [id number] 20mg QD Take 1 [facility] (PravachoL) 07-19- tablet (20 s t 20 MG 00:00: 04:59 mg total) Hospit a tablet 00 :00 by mouth l nightly. pravastatin 2021- No [id number] 20mg QD Take 1 [facility] (PravachoL) 07-19- tablet (20 s t 20 MG 00:00: 00:00 mg total) Hospit a tablet 00 :00 by mouth l nightly. pravastatin 2021- No [id number] 20mg QD Take 1 [facility] (PravachoL) 07-19 tablet (20 s t 20 MG 00:00: 00:00 mg total) Hospit a tablet 00 :00 by mouth l nightly. pravastatin 2021- No [id number] 20mg QD Take 1 [facility] (PravachoL) -22 09-09 tablet (20 s t 20 MG 00:00: 00:00 mg total) Hospit a tablet 00 :00 by mouth l nightly. alendronate Yes [id number] 70mg Q1W Take 1 [facility] (FOSAMAX) 4-05 tablet (70 st 70 MG 00:00: mg total) [facility]ospita tablet 00 by mouth l every 7 days. Take in the morning with a full glass of water on an empty stomach, do NOT take anything else by mouth or lie down for the next 30 min. TiZANidine Yes [id number] 2mg QD Take 1 [facility] (Zanaflex) 4-05 capsule (2 st 2 MG 00:00: mg total) [facility]ospita capsule 00 by mouth l nightly. alendronate Yes [id number] 70mg Q1W Take 1 [facility] (FOSAMAX) 4-05 tablet (70 st 70 MG 00:00: mg total) [facility]ospita tablet 00 by mouth l every 7 days. Take in the morning with a full glass of water on an empty stomach, do NOT take anything else by mouth or lie down for the next 30 min. alendronate Yes [id number] 70mg Q1W Take 1 [facility] (FOSAMAX) 4-05 tablet (70 st 70 MG 00:00: mg total) [facility]ospita tablet 00 by mouth l every 7 days. Take in the morning with a full glass of water on an empty stomach, do NOT take anything else by mouth or lie down for the next 30 min. alendronate Yes [id number] 70mg Q1W Take 1 [facility] (FOSAMAX) 4-05 tablet (70 st 70 MG 00:00: mg total) [facility]ospita tablet 00 by mouth l every 7 days. Take in the morning with a full glass of water on an empty stomach, do NOT take anything else by mouth or lie down for the next 30 min. venlafaxine 0 2023- No [id number] 75mg QD Take 1 [facility] XR (Effexor 4-05 04-[address] XR) 75 MG 00:00: 04:59 (75 mg [facility] 24 hr 00 :00 total) by l capsule mouth daily. venlafaxine 2021- No [id number] 75mg QD Take 1 [facility] XR (Effexor 07-[address] XR) 75 MG 00:00: 00:00 (75 mg [facility] 24 hr 00 :00 total) by l capsule mouth daily. TiZANidine 2021- No [id number] 2mg QD Take 1 [facility] (Zanaflex) 07-02 capsule (2 st 2 MG 00:00: 00:00 mg total) [facility]osp[facility] capsule 00 :00 by mouth l nightly. venlafaxine 2021- No [id number] 75mg QD Take 1 [facility] XR (Effexor 07-[address] XR) 75 MG 00:00: 00:00 (75 mg [facility] 24 hr 00 :00 total) by l capsule mouth daily. TiZANidine No [id number] 2mg QD Take 1 [facility] (Zanaflex) 07-02 capsule (2 st 2 MG 00:00: 00:00 mg total) [facility]osp[facility] capsule 00 :00 by mouth l nightly. venlafaxine No [id number] 75mg QD Take 1 [facility] XR (Effexor 07-[address] XR) 75 MG 00:00: 00:00 (75 mg [facility] 24 hr 00 :00 total) by l capsule mouth daily. TiZANidine 2021- No [id number] 2mg QD Take 1 [facility] (Zanaflex) 07-02 capsule (2 st 2 MG 00:00: 00:00 mg total) [facility]osp[facility] capsule 00 :00 by mouth l nightly. lisinopriL 2021- No [id number] 40mg QD Take 1 [facility] (PRINIVIL) 07-02 tablet (40 st 40 mg 00:00: 04:59 mg total) Hospit a tablet 00 :00 by mouth l nightly. spironolact 2021- No [id number] 25mg QD Take 1 [facility] one 07-02 tablet (25 st (Aldactone) 00:00: 04:59 mg total) [facility]ospita 25 MG 00 :00 by mouth l tablet daily for 90 days. hydroCHLORO 2021- No [id number] 12.5mg QD Take 1 [facility] thiazide 4- 07-[address] (HYDRODIURI 00:00: 04:59 (12.5 mg H [facility]sp[facility] L) 12.5 MG 00 :00 total) by l tablet mouth every morning for 90 days. lisinopriL 2021- No [id number] 40mg QD Take 1 [facility] (PRINIVIL) -08 03-05 tablet (40 st 40 mg 00:00: 04:59 mg total) Hospit a tablet 00 :00 by mouth l nightly. spironolact 2021- No [id number] 25mg QD Take 1 [facility] one 4-05 -05 tablet (25 st (Aldactone) 00:00: 04:59 mg total) [facility]ospita 25 MG 00 :00 by mouth l tablet daily for 90 days. hydroCHLORO 2021- No [id number] 12.5mg QD Take 1 [facility] thiazide -08 03-[address] (HYDRODIURI 00:00: 04:59 (12.5 mg H [facility]sp[facility] L) 12.5 MG 00 :00 total) by l tablet mouth every morning for 90 days. lisinopriL 2021- No [id number] 40mg QD Take 1 [facility] (PRINIVIL) 07-02-05 tablet (40 st 40 mg 00:00: 04:59 mg total) Hospit a tablet 00 :00 by mouth l nightly. spironolact 2021- No [id number] 25mg QD Take 1 [facility] one -08 03-05 tablet (25 st (Aldactone) 00:00: 04:59 mg total) [facility]ospita 25 MG 00 :00 by mouth l tablet daily for 90 days. hydroCHLORO 2021- No [id number] 12.5mg QD Take 1 [facility] thiazide 4-08 03-[address] (HYDRODIURI 00:00: 04:59 (12.5 mg H [facility] L) 12.5 MG 00 :00 total) by l tablet mouth every morning for 90 days. varicella-z 2021- No [id number] .5mL Inject 0.5 [facility] 07-02-[address] gE-AS01B, 00:00: 04:59 the [facility] PF, 00 :00 shoulder, l (Shingrix, thigh, or PF,) 50 buttocks mcg/0.5 mL once for 1 suspension dose. for reconstitut ion IM injection varicella-z No [id number] .5mL Inject 0.5 [facility] 07-02-[address] -AS01B, 00:00: 04:59 [facility] PF, 00 :00 shoulder, l (Shingrix, thigh, or PF,) 50 buttocks mcg/0.5 mL once for 1 suspension dose. for reconstitut ion IM injection Zofran ODT No Notes: [facility] 3-01 (Same as: l 04:01: Zofran [place] 00 ODT) Zofran ODT 0 No Notes: [facility] 3-01 (Same as: l 04:01: Zofran [place] 00 ODT) Zofran ODT 2021-0 No Notes: [facility] 3-01 (Same as: l 04:01: Zofran [place] 00 ODT) Zofran ODT 2021-0 No Notes: [facility] 3-01 (Same as: l 04:01: Zofran [place] 00 ODT) Zofran ODT 2021-0 No Notes: [facility] 3-01 (Same as: l 04:01: Zofran [place] 00 ODT) Zofran ODT 2021-0 No Notes: [facility] 3-01 (Same as: l 04:01: Zofran [place] 00 ODT) Zofran ODT 2021-0 No Notes: [facility] 3-01 (Same as: l 04:01: Zofran [place] 00 ODT) Zofran ODT 2021-0 No Notes: [facility] 3-01 (Same as: l 04:01: Zofran [place] 00 ODT) Zofran ODT 2021-0 No Notes: [facility] 3-01 (Same as: l 04:01: Zofran [place] 00 ODT) Zofran ODT 2021-0 No Notes: [facility] 3-01 (Same as: l 04:01: Zofran [place] 00 ODT) Zofran ODT 2022-0 No Notes: [facility] 3-01 (Same as: l 04:01: Zofran [place] 00 ODT) Zofran ODT 2021-0 No Notes: [facility] 3-01 (Same as: l 04:01: Zofran [place] 00 ODT) Zofran ODT 2021-0 No Notes: [facility] 3-01 (Same as: l 04:01: Zofran [place] 00 ODT) Zofran ODT 2021-0 No Notes: [facility] 3-01 (Same as: l 04:01: Zofran [place] 00 ODT) Zofran ODT 2021-0 No Notes: [facility] 3-01 (Same as: l 04:01: Zofran [place] 00 ODT) Zofran ODT 2021-0 No Notes: [facility] 3-01 (Same as: l 04:01: Zofran [place] 00 ODT) Zofran ODT 2021-0 No Notes: [facility] 3-01 (Same as: l 04:01: Zofran [place] 00 ODT) Zofran ODT 2021-0 No Notes: [facility] 3-01 (Same as: l 04:01: Zofran [place] 00 ODT) Zofran ODT 2021-0 No Notes: [facility] 3-01 (Same as: l 04:01: Zofran [place] 00 ODT) Zofran ODT 2021-0 No Notes: [facility] 3-01 (Same as: l 04:01: Zofran [place] 00 ODT) Zofran ODT 2021-0 No Notes: [facility] 3-01 (Same as: l 04:01: Zofran [place] 00 ODT) Zofran ODT 2021-0 No Notes: [facility] 3-01 (Same as: l 04:01: Zofran [place] 00 ODT) Zofran ODT 2021-0 No Notes: [facility] 3-01 (Same as: l 04:01: Zofran [place] 00 ODT) Zofran ODT 2021-0 No Notes: [facility] 3-01 (Same as: l 04:01: Zofran [place] 00 ODT) Zofran ODT 2-0 No Notes: [facility] 3-01 (Same as: l 04:01: Zofran [place] 00 ODT) Zofran ODT 2021-0 No Notes: [facility] 3-01 (Same as: l 04:01: Zofran [place] 00 ODT) Zofran ODT 2021-0 No Notes: [facility] 3-01 (Same as: l 04:01: Zofran [place] 00 ODT) Zofran ODT 2021-0 No Notes: [facility] 3- (Same as: l 04:01: Zofran [place] 00 ODT) Zofran ODT 2021-0 No Notes: [facility] 3- (Same as: l 04:01: Zofran [place] 00 ODT) Zofran ODT 2021-0 No Notes: [facility] 3-01 (Same as: l 04:01: Zofran [place] 00 ODT) Zofran ODT 2021-0 No Notes: [facility] 3-01 (Same as: l 04:01: Zofran [place] 00 ODT) Zofran ODT 2021-0 No Notes: [facility] 3-01 (Same as: l 04:01: Zofran [place] 00 ODT) Zofran ODT 2021-0 No Notes: [facility] 3-01 (Same as: l 04:01: Zofran [place] 00 ODT) Zofran ODT 2021-0 No Notes: [facility] 3-01 (Same as: l 04:01: Zofran [place] 00 ODT) Zofran ODT 2021-0 No Notes: [facility] 3-01 (Same as: l 04:01: Zofran [place] 00 ODT) Zofran ODT 2021-0 No Notes: [facility] 3-01 (Same as: l 04:01: Zofran [place] 00 ODT) Zofran ODT 2021-0 No Notes: [facility] 3-01 (Same as: l 04:01: Zofran [place] 00 ODT) Zofran ODT 2021-0 No Notes: [facility] 3-01 (Same as: l 04:01: Zofran [place] 00 ODT) Zofran ODT 2022-0 No Notes: [facility] 3-01 (Same as: l 04:01: Zofran [place] 00 ODT) Zofran ODT 2-0 No Notes: [facility] 3-01 (Same as: l 04:01: Zofran [place] 00 ODT) Zofran ODT 2021-0 No Notes: [facility] 3-01 (Same as: l 04:01: Zofran [place] 00 ODT) Zofran ODT 2021-0 No Notes: [facility] 3- (Same as: l 04:01: Zofran [place] 00 ODT) Zofran ODT 2021-0 No Notes: [facility] 3-01 (Same as: l 04:01: Zofran [place] 00 ODT) Zofran ODT 2021-0 No Notes: [facility] 3-01 (Same as: l 04:01: Zofran [place] 00 ODT) Zofran ODT 2021-0 No Notes: [facility] 3-01 (Same as: l 04:01: Zofran [place] 00 ODT) Zofran ODT 2021-0 No Notes: [facility] 3-01 (Same as: l 04:01: Zofran [place] 00 ODT) Zofran ODT 2-0 No Notes: [facility] 3-01 (Same as: l 04:00: Zofran [place] 00 ODT) Zofran ODT 2021-0 No Notes: [facility] 3-01 (Same as: l 04:00: Zofran [place] 00 ODT) Zofran ODT 2-0 No Notes: [facility] 3-01 (Same as: l 04:00: Zofran [place] 00 ODT) Zofran ODT 2-0 No Notes: [facility] 3-01 (Same as: l 04:00: Zofran [place] 00 ODT) Zofran ODT 2-0 No Notes: [facility] 3-01 (Same as: l 04:00: Zofran [place] 00 ODT) Zofran ODT 2021-0 No Notes: [facility] 3-01 (Same as: l 04:00: Zofran [place] 00 ODT) Zofran ODT 2021-0 No Notes: [facility] 3-01 (Same as: l 04:00: Zofran [place] 00 ODT) Zofran ODT 2021-0 No Notes: [facility] 3-01 (Same as: l 04:00: Zofran [place] 00 ODT) Zofran ODT 2021-0 No Notes: [facility] 3-01 (Same as: l 04:00: Zofran [place] 00 ODT) Zofran ODT 2021-0 No Notes: [facility] 3-01 (Same as: l 04:00: Zofran [place] 00 ODT) Zofran ODT 2021-0 No Notes: [facility] 3-01 (Same as: l 04:00: Zofran [place] 00 ODT) Zofran ODT 2021-0 No Notes: [facility] 3-01 (Same as: l 04:00: Zofran [place] 00 ODT) Zofran ODT 2021-0 No Notes: [facility] 3-01 (Same as: l 04:00: Zofran [place] 00 ODT) Zofran ODT 2021-0 No Notes: [facility] 3-01 (Same as: l 04:00: Zofran [place] 00 ODT) Zofran ODT 2021-0 No Notes: [facility] 3-01 (Same as: l 04:00: Zofran [place] 00 ODT) Zofran ODT 2021-0 No Notes: [facility] 3-01 (Same as: l 04:00: Zofran [place] 00 ODT) Zofran ODT 2021-0 No Notes: [facility] 3-01 (Same as: l 04:00: Zofran [place] 00 ODT) Zofran ODT 2021-0 No Notes: [facility] 3-01 (Same as: l 04:00: Zofran [place] 00 ODT) Zofran ODT 2021-0 No Notes: [facility] 3-01 (Same as: l 04:00: Zofran [place] 00 ODT) Zofran ODT 2021-0 No Notes: [facility] 3-01 (Same as: l 04:00: Zofran [place] 00 ODT) Zofran ODT 2021-0 No Notes: [facility] 3-01 (Same as: l 04:00: Zofran [place] 00 ODT) Zofran ODT 2021-0 No Notes: [facility] 3-01 (Same as: l 04:00: Zofran [place] 00 ODT) Zofran ODT 2021-0 No Notes: [facility] 3-01 (Same as: l 04:00: Zofran [place] 00 ODT) Zofran ODT 2021-0 No Notes: [facility] 3-01 (Same as: l 04:00: Zofran [place] 00 ODT) Zofran ODT 2021-0 No Notes: [facility] 3-01 (Same as: l 04:00: Zofran [place] 00 ODT) Zofran ODT 2021-0 No Notes: [facility] 3-01 (Same as: l 04:00: Zofran [place] 00 ODT) Zofran ODT 2021-0 No Notes: [facility] 3-01 (Same as: l 04:00: Zofran [place] 00 ODT) Zofran ODT 2021-0 No Notes: [facility] 3-01 (Same as: l 04:00: Zofran [place] 00 ODT) Zofran ODT 2021-0 No Notes: [facility] 3-01 (Same as: l 04:00: Zofran [place] 00 ODT) Zofran ODT 2021-0 No Notes: [facility] 3-01 (Same as: l 04:00: Zofran [place] 00 ODT) Zofran ODT 2021-0 No Notes: [facility] 3-01 (Same as: l 04:00: Zofran [place] 00 ODT) Zofran ODT 2021-0 No Notes: [facility] 3-01 (Same as: l 04:00: Zofran [place] 00 ODT) Zofran ODT 2021-0 No Notes: [facility] 3-01 (Same as: l 04:00: Zofran [place] 00 ODT) Zofran ODT 2021-0 No Notes: [facility] 3-01 (Same as: l 04:00: Zofran [place] 00 ODT) Zofran ODT 2021-0 No Notes: [facility] 3-01 (Same as: l 04:00: Zofran [place] 00 ODT) Zofran ODT 0 No Notes: [facility] 3-01 (Same as: l 04:00: Zofran [place] 00 ODT) Zofran ODT 0 No Notes: [facility] 3-01 (Same as: l 04:00: Zofran [place] 00 ODT) Zofran ODT 0 No Notes: [facility] 3-01 (Same as: l 04:00: Zofran [place] 00 ODT) Zofran ODT 0 No Notes: [facility] 3-01 (Same as: l 04:00: Zofran [place] 00 ODT) Zofran ODT 0 No Notes: [facility] 3-01 (Same as: l 04:00: Zofran [place] 00 ODT) Zofran ODT 0 No Notes: [facility] 3-01 (Same as: l 04:00: Zofran [place] 00 ODT) Zofran ODT 0 No Notes: [facility] 3-01 (Same as: l 04:00: Zofran [place] 00 ODT) Zofran ODT 0 No Notes: [facility] 3-01 (Same as: l 04:00: Zofran [place] 00 ODT) Zofran ODT 0 No Notes: [facility] 3-01 (Same as: l 04:00: Zofran [place] 00 ODT) Zofran ODT 0 No Notes: [facility] 3-01 (Same as: l 04:00: Zofran [place] 00 ODT) Zofran ODT 0 No Notes: [facility] 3-01 (Same as: l 04:00: Zofran [place] 00 ODT) tramadol Yes 50 mg = 1 Aj peggy hydrochlori 3-01 tab, PO, l de 50 MG 03:59: Q6H, PRN Ly nn Oral Tablet 00 Pain, No [Ultram] driving while under the influence of this medication , X 5 day, # 20 tab, 0 Refill(s), Pharmacy: [facility] #[id number], 162.56, cm, 05/27/21 18:21:00 [employer], Height, 70.909, kg, 05/27/21 18:21:00 [employer], Weight clindamycin 0 Yes 300 mg = 1 Memoria 300 mg oral 3-01 cap, PO, l capsule 03:59: Q8H, X 10 Ly nn day, # 30 cap, 0 Refill(s), Pharmacy: [facility] #[id number], 162.56, cm, 05/27/21 18:21:00 [employer], Height, 70.909, kg, 05/27/21 18:21:00 [employer], Weight tramadol 0 Yes 50 mg = 1 Aj peggy hydrochlori 3-01 tab, PO, l de 50 MG 03:59: Q6H, PRN Ly nn Oral Tablet 00 Pain, No [Ultram] driving while under the influence of this medication , X 5 day, # 20 tab, 0 Refill(s), Pharmacy: [facility] #[id number], 162.56, cm, 05/27/21 18:21:00 [employer], Height, 70.909, kg, 05/27/21 18:21:00 [employer], Weight clindamycin 0 Yes 300 mg = 1 Memoria 300 mg oral 3-01 cap, PO, l capsule 03:59: Q8H, X 10 Ly nn 00 day, # 30 cap, 0 Refill(s), Pharmacy: [facility] #[id number], 162.56, cm, 05/27/21 18:21:00 [employer], Height, 70.909, kg, 05/27/21 18:21:00 [employer], Weight tramadol 2021-0 Yes 50 mg = 1 Aj peggy hydrochlori 3-01 tab, PO, l de 50 MG 03:59: Q6H, PRN Ly nn Oral Tablet 00 Pain, No [Ultram] driving while under the influence of this medication , X 5 day, # 20 tab, 0 Refill(s), Pharmacy: [facility] #[id number], 162.56, cm, 05/27/21 18:21:00 [employer], Height, 70.909, kg, 05/27/21 18:21:00 [employer], Weight clindamycin 2021-0 Yes 300 mg = 1 Memoria 300 mg oral 3-01 cap, PO, l capsule 03:59: Q8H, X 10 Ly nn 00 day, # 30 cap, 0 Refill(s), [id number], 162.56, cm, 05/27/21 18:21:00 [employer], Height, 70.909, kg, 05/27/21 18:21:00 [employer], Weight tramadol 2021-0 Yes 50 mg = 1 Aj peggy hydrochlori 3-01 tab, PO, l de 50 MG 03:59: Q6H, PRN Ly nn Oral Tablet 00 Pain, No [Ultram] driving while under the influence of this medication , X 5 day, # 20 tab, 0 Refill(s), Pharmacy: [facility] #[id number], 162.56, cm, 05/27/21 18:21:00 [employer], Height, 70.909, kg, 05/27/21 18:21:00 [employer], Weight clindamycin 2021-0 Yes 300 mg = 1 Memoria 300 mg oral 3-01 cap, PO, l capsule 03:59: Q8H, X 10 Ly nn 00 day, # 30 cap, 0 Refill(s), Pharmacy: [facility] #[id number], 162.56, cm, 05/27/21 18:21:00 [employer], Height, 70.909, kg, 05/27/21 18:21:00 [employer], Weight tramadol 2021-0 Yes 50 mg = 1 Aj peggy hydrochlori 3-01 tab, PO, l de 50 MG 03:59: Q6H, PRN Ly nn Oral Tablet 00 Pain, No [Ultram] driving while under the influence of this medication , X 5 day, # 20 tab, 0 Refill(s), Pharmacy: [facility] #[id number], 162.56, cm, 05/27/21 18:21:00 [employer], Height, 70.909, kg, 05/27/21 18:21:00 [employer], Weight clindamycin 2021-0 Yes 300 mg = 1 Memoria 300 mg oral 3-01 cap, PO, l capsule 03:59: Q8H, X 10 Ly nn 00 day, # 30 cap, 0 Refill(s), Pharmacy: [facility] #[id number], 162.56, cm, 05/27/21 18:21:00 [employer], Height, 70.909, kg, 05/27/21 18:21:00 [employer], Weight tramadol 2021-0 Yes 50 mg = 1 Aj peggy hydrochlori 3-01 tab, PO, l de 50 MG 03:59: Q6H, PRN Ly nn Oral Tablet 00 Pain, No [Ultram] driving while under the influence of this medication , X 5 day, # 20 tab, 0 Refill(s), Pharmacy: [facility] #[id number], 162.56, cm, 05/27/21 18:21:00 [employer], Height, 70.909, kg, 05/27/21 18:21:00 [employer], Weight clindamycin 0 Yes 300 mg = 1 Memoria 300 mg oral 3-01 cap, PO, l capsule 03:59: Q8H, X 10 Ly nn day, # 30 cap, 0 Refill(s), Pharmacy: [facility] #[id number], 162.56, cm, 05/27/21 18:21:00 [employer], Height, 70.909, kg, 05/27/21 18:21:00 [employer], Weight tramadol 0 Yes 50 mg = 1 Aj peggy hydrochlori 3-01 tab, PO, l de 50 MG 03:59: Q6H, PRN Ly nn Oral Tablet 00 Pain, No [Ultram] driving while under the influence of this medication , X 5 day, # 20 tab, 0 Refill(s), Pharmacy: [facility] #[id number], 162.56, cm, 05/27/21 18:21:00 [employer], Height, 70.909, kg, 05/27/21 18:21:00 [employer], Weight clindamycin 2021-0 Yes 300 mg = 1 Memoria 300 mg oral 3-01 cap, PO, l capsule 03:59: Q8H, X 10 Ly nn 00 day, # 30 cap, 0 Refill(s), Pharmacy: [facility] #[id number], 162.56, cm, 05/27/21 18:21:00 [employer], Height, 70.909, kg, 05/27/21 18:21:00 [employer], Weight tramadol 0 Yes 50 mg = 1 Aj peggy hydrochlori 3-01 tab, PO, l de 50 MG 03:59: Q6H, PRN Ly nn Oral Tablet 00 Pain, No [Ultram] driving while under the influence of this medication , X 5 day, # 20 tab, 0 Refill(s), Pharmacy: [facility] #[id number], 162.56, cm, 05/27/21 18:21:00 [employer], Height, 70.909, kg, 05/27/21 18:21:00 [employer], Weight clindamycin 0 Yes 300 mg = 1 Memoria 300 mg oral 3-01 cap, PO, l capsule 03:59: Q8H, X 10 Ly nn 00 day, # 30 cap, 0 Refill(s), Pharmacy: [facility] #[id number], 162.56, cm, 05/27/21 18:21:00 [employer], Height, 70.909, kg, 05/27/21 18:21:00 [employer], Weight tramadol 0 Yes 50 mg = 1 Aj peggy hydrochlori 3-01 tab, PO, l de 50 MG 03:59: Q6H, PRN Ly nn Oral Tablet 00 Pain, No [Ultram] driving while under the influence of this medication , X 5 day, # 20 tab, 0 Refill(s), Pharmacy: [facility] #[id number], 162.56, cm, 05/27/21 18:21:00 [employer], Height, 70.909, kg, 05/27/21 18:21:00 [employer], Weight clindamycin 2021-0 Yes 300 mg = 1 Memoria 300 mg oral 3-01 cap, PO, l capsule 03:59: Q8H, X 10 Ly nn 00 day, # 30 cap, 0 Refill(s), Pharmacy: [facility] #[id number], 162.56, cm, 05/27/21 18:21:00 [employer], Height, 70.909, kg, 05/27/21 18:21:00 [employer], Weight tramadol 0 Yes 50 mg = 1 Aj peggy hydrochlori 3-01 tab, PO, l de 50 MG 03:59: Q6H, PRN Ly nn Oral Tablet 00 Pain, No [Ultram] driving while under the influence of this medication , X 5 day, # 20 tab, 0 Refill(s), Pharmacy: [facility] #[id number], 162.56, cm, 05/27/21 18:21:00 [employer], Height, 70.909, kg, 05/27/21 18:21:00 [employer], Weight clindamycin 0 Yes 300 mg = 1 Memoria 300 mg oral 3-01 cap, PO, l capsule 03:59: Q8H, X 10 Ly nn 00 day, # 30 cap, 0 Refill(s), Pharmacy: [facility] #[id number], 162.56, cm, 05/27/21 18:21:00 [employer], Height, 70.909, kg, 05/27/21 18:21:00 [employer], Weight tramadol 0 Yes 50 mg = 1 Aj peggy hydrochlori 3-01 tab, PO, l de 50 MG 03:59: Q6H, PRN Ly nn Oral Tablet 00 Pain, No [Ultram] driving while under the influence of this medication , X 5 day, # 20 tab, 0 Refill(s), Pharmacy: [facility] #[id number], 162.56, cm, 05/27/21 18:21:00 [employer], Height, 70.909, kg, 05/27/21 18:21:00 [employer], Weight clindamycin 0 Yes 300 mg = 1 Memoria 300 mg oral 3-01 cap, PO, l capsule 03:59: Q8H, X 10 Ly nn 00 day, # 30 cap, 0 Refill(s), Pharmacy: [facility] #[id number], 162.56, cm, 05/27/21 18:21:00 [employer], Height, 70.909, kg, 05/27/21 18:21:00 [employer], Weight tramadol 0 Yes 50 mg = 1 Aj peggy hydrochlori 3-01 tab, PO, l de 50 MG 03:59: Q6H, PRN Ly nn Oral Tablet 00 Pain, No [Ultram] driving while under the influence of this medication , X 5 day, # 20 tab, 0 Refill(s), Pharmacy: [facility] #[id number], 162.56, cm, 05/27/21 18:21:00 [employer], Height, 70.909, kg, 05/27/21 18:21:00 [employer], Weight clindamycin 0 Yes 300 mg = 1 Memoria 300 mg oral 3-01 cap, PO, l capsule 03:59: Q8H, X 10 Ly nn 00 day, # 30 cap, 0 Refill(s), Pharmacy: [facility] #[id number], 162.56, cm, 05/27/21 18:21:00 [employer], Height, 70.909, kg, 05/27/21 18:21:00 [employer], Weight tramadol 2021-0 Yes 50 mg = 1 Aj peggy hydrochlori 3-01 tab, PO, l de 50 MG 03:59: Q6H, PRN Ly nn Oral Tablet 00 Pain, No [Ultram] driving while under the influence of this medication , X 5 day, # 20 tab, 0 Refill(s), Pharmacy: [facility] #[id number], 162.56, cm, 05/27/21 18:21:00 [employer], Height, 70.909, kg, 05/27/21 18:21:00 [employer], Weight clindamycin 2021-0 Yes 300 mg = 1 Memoria 300 mg oral 3-01 cap, PO, l capsule 03:59: Q8H, X 10 Ly nn day, # 30 cap, 0 Refill(s), Pharmacy: [facility] #[id number], 162.56, cm, 05/27/21 18:21:00 [employer], Height, 70.909, kg, 05/27/21 18:21:00 [employer], Weight tramadol 2021-0 Yes 50 mg = 1 Aj peggy hydrochlori 3-01 tab, PO, l de 50 MG 03:59: Q6H, PRN Ly nn Oral Tablet 00 Pain, No [Ultram] driving while under the influence of this medication , X 5 day, # 20 tab, 0 Refill(s), Pharmacy: [facility] #[id number], 162.56, cm, 05/27/21 18:21:00 [employer], Height, 70.909, kg, 05/27/21 18:21:00 [employer], Weight clindamycin 2021-0 Yes 300 mg = 1 Memoria 300 mg oral 3-01 cap, PO, l capsule 03:59: Q8H, X 10 Ly nn 00 day, # 30 cap, 0 Refill(s), Pharmacy: [facility] #[id number], 162.56, cm, 05/27/21 18:21:00 [employer], Height, 70.909, kg, 05/27/21 18:21:00 [employer], Weight tramadol 2021-0 Yes 50 mg = 1 Aj peggy hydrochlori 3-01 tab, PO, l de 50 MG 03:59: Q6H, PRN Ly nn Oral Tablet 00 Pain, No [Ultram] driving while under the influence of this medication , X 5 day, # 20 tab, 0 Refill(s), Pharmacy: [facility] #[id number], 162.56, cm, 05/27/21 18:21:00 [employer], Height, 70.909, kg, 05/27/21 18:21:00 [employer], Weight clindamycin 2021-0 Yes 300 mg = 1 Memoria 300 mg oral 3-01 cap, PO, l capsule 03:59: Q8H, X 10 Ly nn 00 day, # 30 cap, 0 Refill(s), Pharmacy: [facility] #[id number], 162.56, cm, 05/27/21 18:21:00 [employer], Height, 70.909, kg, 05/27/21 18:21:00 [employer], Weight tramadol 2021-0 Yes 50 mg = 1 Aj peggy hydrochlori 3-01 tab, PO, l de 50 MG 03:59: Q6H, PRN Ly nn Oral Tablet 00 Pain, No [Ultram] driving while under the influence of this medication , X 5 day, # 20 tab, 0 Refill(s), Pharmacy: [facility] #[id number], 162.56, cm, 05/27/21 18:21:00 [employer], Height, 70.909, kg, 05/27/21 18:21:00 [employer], Weight clindamycin 2022-0 Yes 300 mg = 1 Memoria 300 mg oral 3-01 cap, PO, l capsule 03:59: Q8H, X 10 Ly nn 00 day, # 30 cap, 0 Refill(s), Pharmacy: [facility] #[id number], 162.56, cm, 05/27/21 18:21:00 [employer], Height, 70.909, kg, 05/27/21 18:21:00 [employer], Weight tramadol Yes 50 mg = 1 Aj peggy hydrochlori 3-01 tab, PO, l de 50 MG 03:59: Q6H, PRN Ly nn Oral Tablet 00 Pain, No [Ultram] driving while under the influence of this medication , X 5 day, # 20 tab, 0 Refill(s), Pharmacy: [facility] #[id number], 162.56, cm, 05/27/21 18:21:00 [employer], Height, 70.909, kg, 05/27/21 18:21:00 [employer], Weight clindamycin Yes 300 mg = 1 Memoria 300 mg oral 3-01 cap, PO, l capsule 03:59: Q8H, X 10 Ly nn day, # 30 cap, 0 Refill(s), Pharmacy: [facility] #[id number], 162.56, cm, 05/27/21 18:21:00 [employer], Height, 70.909, kg, 05/27/21 18:21:00 [employer], Weight tramadol Yes 50 mg = 1 Aj peggy hydrochlori 3-01 tab, PO, l de 50 MG 03:59: Q6H, PRN Ly nn Oral Tablet 00 Pain, No [Ultram] driving while under the influence of this medication , X 5 day, # 20 tab, 0 Refill(s), Pharmacy: [facility] #[id number], 162.56, cm, 05/27/21 18:21:00 [employer], Height, 70.909, kg, 05/27/21 18:21:00 [employer], Weight clindamycin 0 Yes 300 mg = 1 Memoria 300 mg oral 3-01 cap, PO, l capsule 03:59: Q8H, X 10 Ly nn 00 day, # 30 cap, 0 Refill(s), Pharmacy: [facility] #[id number], 162.56, cm, 05/27/21 18:21:00 [employer], Height, 70.909, kg, 05/27/21 18:21:00 [employer], Weight tramadol 2021-0 Yes 50 mg = 1 Aj peggy hydrochlori 3-01 tab, PO, l de 50 MG 03:59: Q6H, PRN Ly nn Oral Tablet 00 Pain, No [Ultram] driving while under the influence of this medication , X 5 day, # 20 tab, 0 Refill(s), Pharmacy: [facility] #[id number], 162.56, cm, 05/27/21 18:21:00 [employer], Height, 70.909, kg, 05/27/21 18:21:00 [employer], Weight clindamycin 2021-0 Yes 300 mg = 1 Memoria 300 mg oral 3-01 cap, PO, l capsule 03:59: Q8H, X 10 Ly nn 00 day, # 30 cap, 0 Refill(s), Pharmacy: [facility] #[id number], 162.56, cm, 05/27/21 18:21:00 [employer], Height, 70.909, kg, 05/27/21 18:21:00 [employer], Weight tramadol 2021-0 Yes 50 mg = 1 Aj peggy hydrochlori 3-01 tab, PO, l de 50 MG 03:59: Q6H, PRN Ly nn Oral Tablet 00 Pain, No [Ultram] driving while under the influence of this medication , X 5 day, # 20 tab, 0 Refill(s), Pharmacy: [facility] #[id number], 162.56, cm, 05/27/21 18:21:00 [employer], Height, 70.909, kg, 05/27/21 18:21:00 [employer], Weight clindamycin 2021-0 Yes 300 mg = 1 Memoria 300 mg oral 3-01 cap, PO, l capsule 03:59: Q8H, X 10 Ly nn 00 day, # 30 cap, 0 Refill(s), Pharmacy: [facility] #[id number], 162.56, cm, 05/27/21 18:21:00 [employer], Height, 70.909, kg, 05/27/21 18:21:00 [employer], Weight tramadol Yes 50 mg = 1 Aj peggy hydrochlori 3-01 tab, PO, l de 50 MG 03:59: Q6H, PRN Ly nn Oral Tablet 00 Pain, No [Ultram] driving while under the influence of this medication , X 5 day, # 20 tab, 0 Refill(s), Pharmacy: [facility] #[id number], 162.56, cm, 05/27/21 18:21:00 [employer], Height, 70.909, kg, 05/27/21 18:21:00 [employer], Weight clindamycin Yes 300 mg = 1 Memoria 300 mg oral 3-01 cap, PO, l capsule 03:59: Q8H, X 10 Ly nn 00 day, # 30 cap, 0 Refill(s), Pharmacy: [facility] #[id number], 162.56, cm, 05/27/21 18:21:00 [employer], Height, 70.909, kg, 05/27/21 18:21:00 [employer], Weight tramadol Yes 50 mg = 1 Aj peggy hydrochlori 3-01 tab, PO, l de 50 MG 03:59: Q6H, PRN Ly nn Oral Tablet 00 Pain, No [Ultram] driving while under the influence of this medication , X 5 day, # 20 tab, 0 Refill(s), Pharmacy: [facility] #[id number], 162.56, cm, 05/27/21 18:21:00 [employer], Height, 70.909, kg, 05/27/21 18:21:00 [employer], Weight clindamycin Yes 300 mg = 1 Memoria 300 mg oral 3-01 cap, PO, l capsule 03:59: Q8H, X 10 Ly nn 00 day, # 30 cap, 0 Refill(s), Pharmacy: [facility] #[id number], 162.56, cm, 05/27/21 18:21:00 [employer], Height, 70.909, kg, 05/27/21 18:21:00 [employer], Weight tramadol 0 Yes 50 mg = 1 Aj peggy hydrochlori 3-01 tab, PO, l de 50 MG 03:59: Q6H, PRN Ly nn Oral Tablet 00 Pain, No [Ultram] driving while under the influence of this medication , X 5 day, # 20 tab, 0 Refill(s), Pharmacy: [facility] #[id number], 162.56, cm, 05/27/21 18:21:00 [employer], Height, 70.909, kg, 05/27/21 18:21:00 [employer], Weight clindamycin 0 Yes 300 mg = 1 Memoria 300 mg oral 3-01 cap, PO, l capsule 03:59: Q8H, X 10 Ly nn day, # 30 cap, 0 Refill(s), Pharmacy: [facility] #[id number], 162.56, cm, 05/27/21 18:21:00 [employer], Height, 70.909, kg, 05/27/21 18:21:00 [employer], Weight tramadol Yes 50 mg = 1 Aj peggy hydrochlori 3-01 tab, PO, l de 50 MG 03:59: Q6H, PRN Ly nn Oral Tablet 00 Pain, No [Ultram] driving while under the influence of this medication , X 5 day, # 20 tab, 0 Refill(s), Pharmacy: [facility] #[id number], 162.56, cm, 05/27/21 18:21:00 [employer], Height, 70.909, kg, 05/27/21 18:21:00 [employer], Weight clindamycin 2021-0 Yes 300 mg = 1 Memoria 300 mg oral 3-01 cap, PO, l capsule 03:59: Q8H, X 10 Ly nn day, # 30 cap, 0 Refill(s), Pharmacy: [facility] #[id number], 162.56, cm, 05/27/21 18:21:00 [employer], Height, 70.909, kg, 05/27/21 18:21:00 [employer], Weight tramadol 2021-0 Yes 50 mg = 1 Aj peggy hydrochlori 3-01 tab, PO, l de 50 MG 03:59: Q6H, PRN Ly nn Oral Tablet 00 Pain, No [Ultram] driving while under the influence of this medication , X 5 day, # 20 tab, 0 Refill(s), Pharmacy: [facility] #[id number], 162.56, cm, 05/27/21 18:21:00 [employer], Height, 70.909, kg, 05/27/21 18:21:00 [employer], Weight clindamycin 2021-0 Yes 300 mg = 1 Memoria 300 mg oral 3-01 cap, PO, l capsule 03:59: Q8H, X 10 Ly nn 00 day, # 30 cap, 0 Refill(s), Pharmacy: [facility] #[id number], 162.56, cm, 05/27/21 18:21:00 [employer], Height, 70.909, kg, 05/27/21 18:21:00 [employer], Weight tramadol 2021-0 Yes 50 mg = 1 Aj peggy hydrochlori 3-01 tab, PO, l de 50 MG 03:59: Q6H, PRN Ly nn Oral Tablet 00 Pain, No [Ultram] driving while under the influence of this medication , X 5 day, # 20 tab, 0 Refill(s), Pharmacy: [facility] #[id number], 162.56, cm, 05/27/21 18:21:00 [employer], Height, 70.909, kg, 05/27/21 18:21:00 [employer], Weight clindamycin 2021-0 Yes 300 mg = 1 Memoria 300 mg oral 3-01 cap, PO, l capsule 03:59: Q8H, X 10 Ly nn 00 day, # 30 cap, 0 Refill(s), Pharmacy: [facility] #[id number], 162.56, cm, 05/27/21 18:21:00 [employer], Height, 70.909, kg, 05/27/21 18:21:00 [employer], Weight tramadol 2021-0 Yes 50 mg = 1 Aj peggy hydrochlori 3-01 tab, PO, l de 50 MG 03:59: Q6H, PRN Ly nn Oral Tablet 00 Pain, No [Ultram] driving while under the influence of this medication , X 5 day, # 20 tab, 0 Refill(s), Pharmacy: [facility] #[id number], 162.56, cm, 05/27/21 18:21:00 [employer], Height, 70.909, kg, 05/27/21 18:21:00 [employer], Weight clindamycin 2021-0 Yes 300 mg = 1 Memoria 300 mg oral 3-01 cap, PO, l capsule 03:59: Q8H, X 10 Ly nn 00 day, # 30 cap, 0 Refill(s), Pharmacy: [facility] #[id number], 162.56, cm, 05/27/21 18:21:00 [employer], Height, 70.909, kg, 05/27/21 18:21:00 [employer], Weight tramadol 0 Yes 50 mg = 1 Aj peggy hydrochlori 3-01 tab, PO, l de 50 MG 03:59: Q6H, PRN Ly nn Oral Tablet 00 Pain, No [Ultram] driving while under the influence of this medication , X 5 day, # 20 tab, 0 Refill(s), Pharmacy: [facility] #[id number], 162.56, cm, 05/27/21 18:21:00 [employer], Height, 70.909, kg, 05/27/21 18:21:00 [employer], Weight clindamycin 0 Yes 300 mg = 1 Memoria 300 mg oral 3-01 cap, PO, l capsule 03:59: Q8H, X 10 Ly nn day, # 30 cap, 0 Refill(s), Pharmacy: [facility] #[id number], 162.56, cm, 05/27/21 18:21:00 [employer], Height, 70.909, kg, 05/27/21 18:21:00 [employer], Weight tramadol 0 Yes 50 mg = 1 Aj peggy hydrochlori 3-01 tab, PO, l de 50 MG 03:59: Q6H, PRN Ly nn Oral Tablet 00 Pain, No [Ultram] driving while under the influence of this medication , X 5 day, # 20 tab, 0 Refill(s), Pharmacy: [facility] #[id number], 162.56, cm, 05/27/21 18:21:00 [employer], Height, 70.909, kg, 05/27/21 18:21:00 [employer], Weight clindamycin 2021-0 Yes 300 mg = 1 Memoria 300 mg oral 3-01 cap, PO, l capsule 03:59: Q8H, X 10 Ly nn 00 day, # 30 cap, 0 Refill(s), Pharmacy: [facility] #[id number], 162.56, cm, 05/27/21 18:21:00 [employer], Height, 70.909, kg, 05/27/21 18:21:00 [employer], Weight tramadol 0 Yes 50 mg = 1 Aj peggy hydrochlori 3-01 tab, PO, l de 50 MG 03:59: Q6H, PRN Ly nn Oral Tablet 00 Pain, No [Ultram] driving while under the influence of this medication , X 5 day, # 20 tab, 0 Refill(s), Pharmacy: [facility] #[id number], 162.56, cm, 05/27/21 18:21:00 [employer], Height, 70.909, kg, 05/27/21 18:21:00 [employer], Weight clindamycin 2021-0 Yes 300 mg = 1 Memoria 300 mg oral 3-01 cap, PO, l capsule 03:59: Q8H, X 10 Ly nn 00 day, # 30 cap, 0 Refill(s), Pharmacy: [facility] #[id number], 162.56, cm, 05/27/21 18:21:00 [employer], Height, 70.909, kg, 05/27/21 18:21:00 [employer], Weight tramadol 0 Yes 50 mg = 1 Aj peggy hydrochlori 3-01 tab, PO, l de 50 MG 03:59: Q6H, PRN Ly nn Oral Tablet 00 Pain, No [Ultram] driving while under the influence of this medication , X 5 day, # 20 tab, 0 Refill(s), Pharmacy: [facility] #[id number], 162.56, cm, 05/27/21 18:21:00 [employer], Height, 70.909, kg, 05/27/21 18:21:00 [employer], Weight clindamycin 2021-0 Yes 300 mg = 1 Memoria 300 mg oral 3-01 cap, PO, l capsule 03:59: Q8H, X 10 Ly nn 00 day, # 30 cap, 0 Refill(s), Pharmacy: [facility] #[id number], 162.56, cm, 05/27/21 18:21:00 [employer], Height, 70.909, kg, 05/27/21 18:21:00 [employer], Weight tramadol Yes 50 mg = 1 Aj peggy hydrochlori 3-01 tab, PO, l de 50 MG 03:59: Q6H, PRN Ly nn Oral Tablet 00 Pain, No [Ultram] driving while under the influence of this medication , X 5 day, # 20 tab, 0 Refill(s), Pharmacy: [facility] #[id number], 162.56, cm, 05/27/21 18:21:00 [employer], Height, 70.909, kg, 05/27/21 18:21:00 [employer], Weight clindamycin Yes 300 mg = 1 Memoria 300 mg oral 3-01 cap, PO, l capsule 03:59: Q8H, X 10 Ly nn 00 day, # 30 cap, 0 Refill(s), Pharmacy: [facility] #[id number], 162.56, cm, 05/27/21 18:21:00 [employer], Height, 70.909, kg, 05/27/21 18:21:00 [employer], Weight tramadol Yes 50 mg = 1 Aj peggy hydrochlori 3-01 tab, PO, l de 50 MG 03:59: Q6H, PRN Ly nn Oral Tablet 00 Pain, No [Ultram] driving while under the influence of this medication , X 5 day, # 20 tab, 0 Refill(s), Pharmacy: [facility] #[id number], 162.56, cm, 05/27/21 18:21:00 [employer], Height, 70.909, kg, 05/27/21 18:21:00 [employer], Weight clindamycin Yes 300 mg = 1 Memoria 300 mg oral 3-01 cap, PO, l capsule 03:59: Q8H, X 10 Ly nn 00 day, # 30 cap, 0 Refill(s), Pharmacy: [facility] #[id number], 162.56, cm, 05/27/21 18:21:00 [employer], Height, 70.909, kg, 05/27/21 18:21:00 [employer], Weight tramadol 0 Yes 50 mg = 1 Aj peggy hydrochlori 3-01 tab, PO, l de 50 MG 03:59: Q6H, PRN Ly nn Oral Tablet 00 Pain, No [Ultram] driving while under the influence of this medication , X 5 day, # 20 tab, 0 Refill(s), Pharmacy: [facility] #[id number], 162.56, cm, 05/27/21 18:21:00 [employer], Height, 70.909, kg, 05/27/21 18:21:00 [employer], Weight clindamycin 0 Yes 300 mg = 1 Memoria 300 mg oral 3-01 cap, PO, l capsule 03:59: Q8H, X 10 Ly nn day, # 30 cap, 0 Refill(s), Pharmacy: [facility] #[id number], 162.56, cm, 05/27/21 18:21:00 [employer], Height, 70.909, kg, 05/27/21 18:21:00 [employer], Weight tramadol 2021-0 Yes 50 mg = 1 Aj peggy hydrochlori 3-01 tab, PO, l de 50 MG 03:59: Q6H, PRN Ly nn Oral Tablet 00 Pain, No [Ultram] driving while under the influence of this medication , X 5 day, # 20 tab, 0 Refill(s), Pharmacy: [facility] #[id number], 162.56, cm, 05/27/21 18:21:00 [employer], Height, 70.909, kg, 05/27/21 18:21:00 [employer], Weight clindamycin 2021-0 Yes 300 mg = 1 Memoria 300 mg oral 3-01 cap, PO, l capsule 03:59: Q8H, X 10 Ly nn 00 day, # 30 cap, 0 Refill(s), Pharmacy: [facility] #[id number], 162.56, cm, 05/27/21 18:21:00 [employer], Height, 70.909, kg, 05/27/21 18:21:00 [employer], Weight tramadol 2021-0 Yes 50 mg = 1 Aj peggy hydrochlori 3-01 tab, PO, l de 50 MG 03:59: Q6H, PRN Ly nn Oral Tablet 00 Pain, No [Ultram] driving while under the influence of this medication , X 5 day, # 20 tab, 0 Refill(s), Pharmacy: [facility] #[id number], 162.56, cm, 05/27/21 18:21:00 [employer], Height, 70.909, kg, 05/27/21 18:21:00 [employer], Weight clindamycin 2021-0 Yes 300 mg = 1 Memoria 300 mg oral 3-01 cap, PO, l capsule 03:59: Q8H, X 10 Ly nn 00 day, # 30 cap, 0 Refill(s), Pharmacy: [facility] #[id number], 162.56, cm, 05/27/21 18:21:00 [employer], Height, 70.909, kg, 05/27/21 18:21:00 [employer], Weight tramadol 2021-0 Yes 50 mg = 1 Aj peggy hydrochlori 3-01 tab, PO, l de 50 MG 03:59: Q6H, PRN Ly nn Oral Tablet 00 Pain, No [Ultram] driving while under the influence of this medication , X 5 day, # 20 tab, 0 Refill(s), Pharmacy: [facility] #[id number], 162.56, cm, 05/27/21 18:21:00 [employer], Height, 70.909, kg, 05/27/21 18:21:00 [employer], Weight clindamycin 2021-0 Yes 300 mg = 1 Memoria 300 mg oral 3-01 cap, PO, l capsule 03:59: Q8H, X 10 Ly nn 00 day, # 30 cap, 0 Refill(s), Pharmacy: [facility] #[id number], 162.56, cm, 05/27/21 18:21:00 [employer], Height, 70.909, kg, 05/27/21 18:21:00 [employer], Weight tramadol 2021-0 Yes 50 mg = 1 Aj peggy hydrochlori 3-01 tab, PO, l de 50 MG 03:59: Q6H, PRN Ly nn Oral Tablet 00 Pain, No [Ultram] driving while under the influence of this medication , X 5 day, # 20 tab, 0 Refill(s), Pharmacy: [facility] #[id number], 162.56, cm, 05/27/21 18:21:00 [employer], Height, 70.909, kg, 05/27/21 18:21:00 [employer], Weight clindamycin 2021-0 Yes 300 mg = 1 Memoria 300 mg oral 3-01 cap, PO, l capsule 03:59: Q8H, X 10 Ly nn 00 day, # 30 cap, 0 Refill(s), Pharmacy: [facility] #[id number], 162.56, cm, 05/27/21 18:21:00 [employer], Height, 70.909, kg, 05/27/21 18:21:00 [employer], Weight tramadol 0 Yes 50 mg = 1 Aj peggy hydrochlori 3-01 tab, PO, l de 50 MG 03:59: Q6H, PRN Ly nn Oral Tablet 00 Pain, No [Ultram] driving while under the influence of this medication , X 5 day, # 20 tab, 0 Refill(s), [facility] [id number], 162.56, cm, 05/27/21 18:21:00 [employer], Height, 70.909, kg, 05/27/21 18:21:00 [employer], Weight clindamycin 0 Yes 300 mg = 1 Memoria 300 mg oral 3-01 cap, PO, l capsule 03:59: Q8H, X 10 Ly nn day, # 30 cap, 0 Refill(s), Pharmacy: [facility] #[id number], 162.56, cm, 05/27/21 18:21:00 [employer], Height, 70.909, kg, 05/27/21 18:21:00 [employer], Weight tramadol 0 Yes 50 mg = 1 Aj peggy hydrochlori 3-01 tab, PO, l de 50 MG 03:59: Q6H, PRN Ly nn Oral Tablet 00 Pain, No [Ultram] driving while under the influence of this medication , X 5 day, # 20 tab, 0 Refill(s), Pharmacy: [facility] #[id number], 162.56, cm, 05/27/21 18:21:00 [employer], Height, 70.909, kg, 05/27/21 18:21:00 [employer], Weight clindamycin 2021-0 Yes 300 mg = 1 Memoria 300 mg oral 3-01 cap, PO, l capsule 03:59: Q8H, X 10 Ly nn 00 day, # 30 cap, 0 Refill(s), Pharmacy: [facility] #[id number], 162.56, cm, 05/27/21 18:21:00 [employer], Height, 70.909, kg, 05/27/21 18:21:00 [employer], Weight tramadol 0 Yes 50 mg = 1 Aj peggy hydrochlori 3-01 tab, PO, l de 50 MG 03:59: Q6H, PRN Ly nn Oral Tablet 00 Pain, No [Ultram] driving while under the influence of this medication , X 5 day, # 20 tab, 0 Refill(s), Pharmacy: [facility] #[id number], 162.56, cm, 05/27/21 18:21:00 [employer], Height, 70.909, kg, 05/27/21 18:21:00 [employer], Weight clindamycin 0 Yes 300 mg = 1 Memoria 300 mg oral 3-01 cap, PO, l capsule 03:59: Q8H, X 10 Ly nn 00 day, # 30 cap, 0 Refill(s), Pharmacy: [facility] #[id number], 162.56, cm, 05/27/21 18:21:00 [employer], Height, 70.909, kg, 05/27/21 18:21:00 [employer], Weight tramadol 2021-0 Yes 50 mg = 1 Aj peggy hydrochlori 3-01 tab, PO, l de 50 MG 03:59: Q6H, PRN Ly nn Oral Tablet 00 Pain, No [Ultram] driving while under the influence of this medication , X 5 day, # 20 tab, 0 Refill(s), Pharmacy: [facility] #[id number], 162.56, cm, 05/27/21 18:21:00 [employer], Height, 70.909, kg, 05/27/21 18:21:00 [employer], Weight clindamycin 2021-0 Yes 300 mg = 1 Memoria 300 mg oral 3-01 cap, PO, l capsule 03:59: Q8H, X 10 Ly nn 00 day, # 30 cap, 0 Refill(s), Pharmacy: [facility] #[id number], 162.56, cm, 05/27/21 18:21:00 [employer], Height, 70.909, kg, 05/27/21 18:21:00 [employer], Weight tramadol 2022-0 Yes 50 mg = 1 Aj peggy hydrochlori 3-01 tab, PO, l de 50 MG 03:59: Q6H, PRN Ly nn Oral Tablet 00 Pain, No [Ultram] driving while under the influence of this medication , X 5 day, # 20 tab, 0 Refill(s), Pharmacy: [facility] #[id number], 162.56, cm, 05/27/21 18:21:00 [employer], Height, 70.909, kg, 05/27/21 18:21:00 [employer], Weight clindamycin Yes 300 mg = 1 Memoria 300 mg oral 3-01 cap, PO, l capsule 03:59: Q8H, X 10 Ly nn 00 day, # 30 cap, 0 Refill(s), Pharmacy: [facility] #[id number], 162.56, cm, 05/27/21 18:21:00 [employer], Height, 70.909, kg, 05/27/21 18:21:00 [employer], Weight tramadol Yes 50 mg = 1 Aj peggy hydrochlori 3-01 tab, PO, l de 50 MG 03:59: Q6H, PRN Ly nn Oral Tablet 00 Pain, No [Ultram] driving while under the influence of this medication , X 5 day, # 20 tab, 0 Refill(s), Pharmacy: [facility] #[id number], 162.56, cm, 05/27/21 18:21:00 [employer], Height, 70.909, kg, 05/27/21 18:21:00 [employer], Weight clindamycin Yes 300 mg = 1 Memoria 300 mg oral 3-01 cap, PO, l capsule 03:59: Q8H, X 10 Ly nn 00 day, # 30 cap, 0 Refill(s), Pharmacy: [facility] #[id number], 162.56, cm, 05/27/21 18:21:00 [employer], Height, 70.909, kg, 05/27/21 18:21:00 [employer], Weight tramadol 0 Yes 50 mg = 1 Aj peggy hydrochlori 3-01 tab, PO, l de 50 MG 03:59: Q6H, PRN Ly nn Oral Tablet 00 Pain, No [Ultram] driving while under the influence of this medication , X 5 day, # 20 tab, 0 Refill(s), Pharmacy: [facility] #[id number], 162.56, cm, 05/27/21 18:21:00 [employer], Height, 70.909, kg, 05/27/21 18:21:00 [employer], Weight clindamycin 0 Yes 300 mg = 1 Memoria 300 mg oral 3-01 cap, PO, l capsule 03:59: Q8H, X 10 Ly nn 00 day, # 30 cap, 0 Refill(s), Pharmacy: [facility] #[id number], 162.56, cm, 05/27/21 18:21:00 [employer], Height, 70.909, kg, 05/27/21 18:21:00 [employer], Weight tramadol Yes 50 mg = 1 Aj peggy hydrochlori 3-01 tab, PO, l de 50 MG 03:59: Q6H, PRN Ly nn Oral Tablet 00 Pain, No [Ultram] driving while under the influence of this medication , X 5 day, # 20 tab, 0 Refill(s), Pharmacy: [facility] #[id number], 162.56, cm, 05/27/21 18:21:00 [employer], Height, 70.909, kg, 05/27/21 18:21:00 [employer], Weight clindamycin Yes 300 mg = 1 Memoria 300 mg oral 3-01 cap, PO, l capsule 03:59: Q8H, X 10 Ly nn 00 day, # 30 cap, 0 Refill(s), Pharmacy: [facility] #[id number], 162.56, cm, 05/27/21 18:21:00 [employer], Height, 70.909, kg, 05/27/21 18:21:00 [employer], Weight tramadol 2021-0 No 50 mg = 1 Aj peggy hydrochlori 3-01 tab, PO, l de 50 MG 03:45: Q6H, PRN Ly nn Oral Tablet 00 Pain, No [Ultram] driving while under the influence of this medication , X 5 day, # 20 tab, 0 Refill(s), Pharmacy: [facility], 162.56, cm, 05/27/21 18:21:00 [employer], Height, 70.909, kg, 05/27/21 18:21:00 [employer], Weight tramadol No 50 mg = 1 Aj peggy hydrochlori 3-01 tab, PO, l de 50 MG 03:45: Q6H, PRN Ly nn Oral Tablet 00 Pain, No [Ultram] driving while under the influence of this medication , X 5 day, # 20 tab, 0 Refill(s), Pharmacy: [facility], 162.56, cm, 05/27/21 18:21:00 [employer], Height, 70.909, kg, 05/27/21 18:21:00 [employer], Weight tramadol No 50 mg = 1 Aj peggy hydrochlori 3-01 tab, PO, l de 50 MG 03:45: Q6H, PRN Ly nn Oral Tablet 00 Pain, No [Ultram] driving while under the influence of this medication , X 5 day, # 20 tab, 0 Refill(s), Pharmacy: [facility], 162.56, cm, 05/27/21 18:21:00 [employer], Height, 70.909, kg, 05/27/21 18:21:00 [employer], Weight tramadol No 50 mg = 1 Aj peggy hydrochlori 3-01 tab, PO, l de 50 MG 03:45: Q6H, PRN Ly nn Oral Tablet 00 Pain, No [Ultram] driving while under the influence of this medication , X 5 day, # 20 tab, 0 Refill(s), Pharmacy: [facility], 162.56, cm, 05/27/21 18:21:00 [employer], Height, 70.909, kg, 05/27/21 18:21:00 [employer], Weight tramadol No 50 mg = 1 Aj peggy hydrochlori 3-01 tab, PO, l de 50 MG 03:45: Q6H, PRN Ly nn Oral Tablet 00 Pain, No [Ultram] driving while under the influence of this medication , X 5 day, # 20 tab, 0 Refill(s), Pharmacy: [facility], 162.56, cm, 05/27/21 18:21:00 [employer], Height, 70.909, kg, 05/27/21 18:21:00 [employer], Weight tramadol No 50 mg = 1 Aj peggy hydrochlori 3-01 tab, PO, l de 50 MG 03:45: Q6H, PRN Ly nn Oral Tablet 00 Pain, No [Ultram] driving while under the influence of this medication , X 5 day, # 20 tab, 0 Refill(s), Pharmacy: [facility], 162.56, cm, 05/27/21 18:21:00 [employer], Height, 70.909, kg, 05/27/21 18:21:00 [employer], Weight tramadol No 50 mg = 1 Aj peggy hydrochlori 3-01 tab, PO, l de 50 MG 03:45: Q6H, PRN Ly nn Oral Tablet 00 Pain, No [Ultram] driving while under the influence of this medication , X 5 day, # 20 tab, 0 Refill(s), Pharmacy: [facility], 162.56, cm, 05/27/21 18:21:00 [employer], Height, 70.909, kg, 05/27/21 18:21:00 [employer], Weight tramadol No 50 mg = 1 Aj peggy hydrochlori 3-01 tab, PO, l de 50 MG 03:45: Q6H, PRN Ly nn Oral Tablet 00 Pain, No [Ultram] driving while under the influence of this medication , X 5 day, # 20 tab, 0 Refill(s), Pharmacy: [facility], 162.56, cm, 05/27/21 18:21:00 [employer], Height, 70.909, kg, 05/27/21 18:21:00 [employer], Weight tramadol 0 No 50 mg = 1 Aj peggy hydrochlori 3-01 tab, PO, l de 50 MG 03:45: Q6H, PRN Ly nn Oral Tablet 00 Pain, No [Ultram] driving while under the influence of this medication , X 5 day, # 20 tab, 0 Refill(s), Pharmacy: [facility], 162.56, cm, 05/27/21 18:21:00 [employer], Height, 70.909, kg, 05/27/21 18:21:00 [employer], Weight tramadol No 50 mg = 1 Aj peggy hydrochlori 3-01 tab, PO, l de 50 MG 03:45: Q6H, PRN Ly nn Oral Tablet 00 Pain, No [Ultram] driving while under the influence of this medication , X 5 day, # 20 tab, 0 Refill(s), Pharmacy: [facility], 162.56, cm, 05/27/21 18:21:00 [employer], Height, 70.909, kg, 05/27/21 18:21:00 [employer], Weight tramadol No 50 mg = 1 Aj peggy hydrochlori 3-01 tab, PO, l de 50 MG 03:45: Q6H, PRN Ly nn Oral Tablet 00 Pain, No [Ultram] driving while under the influence of this medication , X 5 day, # 20 tab, 0 Refill(s), Pharmacy: [facility], 162.56, cm, 05/27/21 18:21:00 [employer], Height, 70.909, kg, 05/27/21 18:21:00 [employer], Weight tramadol No 50 mg = 1 Aj peggy hydrochlori 3-01 tab, PO, l de 50 MG 03:45: Q6H, PRN Ly nn Oral Tablet 00 Pain, No [Ultram] driving while under the influence of this medication , X 5 day, # 20 tab, 0 Refill(s), Pharmacy: [facility], 162.56, cm, 05/27/21 18:21:00 [employer], Height, 70.909, kg, 05/27/21 18:21:00 [employer], Weight tramadol No 50 mg = 1 Aj peggy hydrochlori 3-01 tab, PO, l de 50 MG 03:45: Q6H, PRN Ly nn Oral Tablet 00 Pain, No [Ultram] driving while under the influence of this medication , X 5 day, # 20 tab, 0 Refill(s), Pharmacy: [facility], 162.56, cm, 05/27/21 18:21:00 [employer], Height, 70.909, kg, 05/27/21 18:21:00 [employer], Weight tramadol 2022-0 No 50 mg = 1 Aj peggy hydrochlori 3-01 tab, PO, l de 50 MG 03:45: Q6H, PRN Ly nn Oral Tablet 00 Pain, No [Ultram] driving while under the influence of this medication , X 5 day, # 20 tab, 0 Refill(s), Pharmacy: [facility], 162.56, cm, 05/27/21 18:21:00 [employer], Height, 70.909, kg, 05/27/21 18:21:00 [employer], Weight tramadol No 50 mg = 1 Aj peggy hydrochlori 3-01 tab, PO, l de 50 MG 03:45: Q6H, PRN Ly nn Oral Tablet 00 Pain, No [Ultram] driving while under the influence of this medication , X 5 day, # 20 tab, 0 Refill(s), Pharmacy: [facility], 162.56, cm, 05/27/21 18:21:00 [employer], Height, 70.909, kg, 05/27/21 18:21:00 [employer], Weight tramadol No 50 mg = 1 Aj peggy hydrochlori 3-01 tab, PO, l de 50 MG 03:45: Q6H, PRN Ly nn Oral Tablet 00 Pain, No [Ultram] driving while under the influence of this medication , X 5 day, # 20 tab, 0 Refill(s), Pharmacy: [facility], 162.56, cm, 05/27/21 18:21:00 [employer], Height, 70.909, kg, 05/27/21 18:21:00 [employer], Weight tramadol No 50 mg = 1 Aj peggy hydrochlori 3-01 tab, PO, l de 50 MG 03:45: Q6H, PRN Ly nn Oral Tablet 00 Pain, No [Ultram] driving while under the influence of this medication , X 5 day, # 20 tab, 0 Refill(s), Pharmacy: [facility], 162.56, cm, 05/27/21 18:21:00 [employer], Height, 70.909, kg, 05/27/21 18:21:00 [employer], Weight tramadol No 50 mg = 1 Aj peggy hydrochlori 3-01 tab, PO, l de 50 MG 03:45: Q6H, PRN Ly nn Oral Tablet 00 Pain, No [Ultram] driving while under the influence of this medication , X 5 day, # 20 tab, 0 Refill(s), Pharmacy: [facility], 162.56, cm, 05/27/21 18:21:00 [employer], Height, 70.909, kg, 05/27/21 18:21:00 [employer], Weight tramadol No 50 mg = 1 Aj peggy hydrochlori 3-01 tab, PO, l de 50 MG 03:45: Q6H, PRN Ly nn Oral Tablet 00 Pain, No [Ultram] driving while under the influence of this medication , X 5 day, # 20 tab, 0 Refill(s), Pharmacy: [facility], 162.56, cm, 05/27/21 18:21:00 [employer], Height, 70.909, kg, 05/27/21 18:21:00 [employer], Weight tramadol No 50 mg = 1 Aj peggy hydrochlori 3-01 tab, PO, l de 50 MG 03:45: Q6H, PRN Ly nn Oral Tablet 00 Pain, No [Ultram] driving while under the influence of this medication , X 5 day, # 20 tab, 0 Refill(s), Pharmacy: [facility], 162.56, cm, 05/27/21 18:21:00 [employer], Height, 70.909, kg, 05/27/21 18:21:00 [employer], Weight tramadol No 50 mg = 1 Aj peggy hydrochlori 3-01 tab, PO, l de 50 MG 03:45: Q6H, PRN Ly nn Oral Tablet 00 Pain, No [Ultram] driving while under the influence of this medication , X 5 day, # 20 tab, 0 Refill(s), Pharmacy: [facility], 162.56, cm, 05/27/21 18:21:00 [employer], Height, 70.909, kg, 05/27/21 18:21:00 [employer], Weight tramadol No 50 mg = 1 Aj peggy hydrochlori 3-01 tab, PO, l de 50 MG 03:45: Q6H, PRN Ly nn Oral Tablet 00 Pain, No [Ultram] driving while under the influence of this medication , X 5 day, # 20 tab, 0 Refill(s), Pharmacy: [facility], 162.56, cm, 05/27/21 18:21:00 [employer], Height, 70.909, kg, 05/27/21 18:21:00 [employer], Weight tramadol No 50 mg = 1 Aj peggy hydrochlori 3-01 tab, PO, l de 50 MG 03:45: Q6H, PRN Ly nn Oral Tablet 00 Pain, No [Ultram] driving while under the influence of this medication , X 5 day, # 20 tab, 0 Refill(s), Pharmacy: [facility], 162.56, cm, 05/27/21 18:21:00 [employer], Height, 70.909, kg, 05/27/21 18:21:00 [employer], Weight tramadol No 50 mg = 1 Aj peggy hydrochlori 3-01 tab, PO, l de 50 MG 03:45: Q6H, PRN Ly nn Oral Tablet 00 Pain, No [Ultram] driving while under the influence of this medication , X 5 day, # 20 tab, 0 Refill(s), Pharmacy: [facility], 162.56, cm, 05/27/21 18:21:00 [employer], Height, 70.909, kg, 05/27/21 18:21:00 [employer], Weight tramadol No 50 mg = 1 Aj peggy hydrochlori 3-01 tab, PO, l de 50 MG 03:45: Q6H, PRN Ly nn Oral Tablet 00 Pain, No [Ultram] driving while under the influence of this medication , X 5 day, # 20 tab, 0 Refill(s), Pharmacy: [facility], 162.56, cm, 05/27/21 18:21:00 [employer], Height, 70.909, kg, 05/27/21 18:21:00 [employer], Weight tramadol No 50 mg = 1 Aj peggy hydrochlori 3-01 tab, PO, l de 50 MG 03:45: Q6H, PRN Ly nn Oral Tablet 00 Pain, No [Ultram] driving while under the influence of this medication , X 5 day, # 20 tab, 0 Refill(s), Pharmacy: [facility], 162.56, cm, 05/27/21 18:21:00 [employer], Height, 70.909, kg, 05/27/21 18:21:00 [employer], Weight tramadol No 50 mg = 1 Aj peggy hydrochlori 3-01 tab, PO, l de 50 MG 03:45: Q6H, PRN Ly nn Oral Tablet 00 Pain, No [Ultram] driving while under the influence of this medication , X 5 day, # 20 tab, 0 Refill(s), Pharmacy: [facility], 162.56, cm, 05/27/21 18:21:00 [employer], Height, 70.909, kg, 05/27/21 18:21:00 [employer], Weight tramadol No 50 mg = 1 Aj peggy hydrochlori 3-01 tab, PO, l de 50 MG 03:45: Q6H, PRN Ly nn Oral Tablet 00 Pain, No [Ultram] driving while under the influence of this medication , X 5 day, # 20 tab, 0 Refill(s), Pharmacy: [facility], 162.56, cm, 05/27/21 18:21:00 [employer], Height, 70.909, kg, 05/27/21 18:21:00 [employer], Weight tramadol No 50 mg = 1 Aj peggy hydrochlori 3-01 tab, PO, l de 50 MG 03:45: Q6H, PRN Ly nn Oral Tablet 00 Pain, No [Ultram] driving while under the influence of this medication , X 5 day, # 20 tab, 0 Refill(s), Pharmacy: [facility], 162.56, cm, 05/27/21 18:21:00 [employer], Height, 70.909, kg, 05/27/21 18:21:00 [employer], Weight tramadol No 50 mg = 1 Aj peggy hydrochlori 3-01 tab, PO, l de 50 MG 03:45: Q6H, PRN Ly nn Oral Tablet 00 Pain, No [Ultram] driving while under the influence of this medication , X 5 day, # 20 tab, 0 Refill(s), Pharmacy: [facility], 162.56, cm, 05/27/21 18:21:00 [employer], Height, 70.909, kg, 05/27/21 18:21:00 [employer], Weight tramadol No 50 mg = 1 Aj peggy hydrochlori 3-01 tab, PO, l de 50 MG 03:45: Q6H, PRN Ly nn Oral Tablet 00 Pain, No [Ultram] driving while under the influence of this medication , X 5 day, # 20 tab, 0 Refill(s), Pharmacy: [facility], 162.56, cm, 05/27/21 18:21:00 [employer], Height, 70.909, kg, 05/27/21 18:21:00 [employer], Weight tramadol No 50 mg = 1 Aj peggy hydrochlori 3-01 tab, PO, l de 50 MG 03:45: Q6H, PRN Ly nn Oral Tablet 00 Pain, No [Ultram] driving while under the influence of this medication , X 5 day, # 20 tab, 0 Refill(s), Pharmacy: [facility], 162.56, cm, 05/27/21 18:21:00 [employer], Height, 70.909, kg, 05/27/21 18:21:00 [employer], Weight tramadol No 50 mg = 1 Aj peggy hydrochlori 3-01 tab, PO, l de 50 MG 03:45: Q6H, PRN Ly nn Oral Tablet 00 Pain, No [Ultram] driving while under the influence of this medication , X 5 day, # 20 tab, 0 Refill(s), Pharmacy: [facility], 162.56, cm, 05/27/21 18:21:00 [employer], Height, 70.909, kg, 05/27/21 18:21:00 [employer], Weight tramadol No 50 mg = 1 Aj peggy hydrochlori 3-01 tab, PO, l de 50 MG 03:45: Q6H, PRN Ly nn Oral Tablet 00 Pain, No [Ultram] driving while under the influence of this medication , X 5 day, # 20 tab, 0 Refill(s), Pharmacy: [facility], 162.56, cm, 05/27/21 18:21:00 [employer], Height, 70.909, kg, 05/27/21 18:21:00 [employer], Weight tramadol No 50 mg = 1 Aj peggy hydrochlori 3-01 tab, PO, l de 50 MG 03:45: Q6H, PRN Ly nn Oral Tablet 00 Pain, No [Ultram] driving while under the influence of this medication , X 5 day, # 20 tab, 0 Refill(s), Pharmacy: [facility], 162.56, cm, 05/27/21 18:21:00 [employer], Height, 70.909, kg, 05/27/21 18:21:00 [employer], Weight tramadol No 50 mg = 1 Aj peggy hydrochlori 3-01 tab, PO, l de 50 MG 03:45: Q6H, PRN Ly nn Oral Tablet 00 Pain, No [Ultram] driving while under the influence of this medication , X 5 day, # 20 tab, 0 Refill(s), Pharmacy: [facility], 162.56, cm, 05/27/21 18:21:00 [employer], Height, 70.909, kg, 05/27/21 18:21:00 [employer], Weight tramadol No 50 mg = 1 Aj peggy hydrochlori 3-01 tab, PO, l de 50 MG 03:45: Q6H, PRN Ly nn Oral Tablet 00 Pain, No [Ultram] driving while under the influence of this medication , X 5 day, # 20 tab, 0 Refill(s), Pharmacy: [facility], 162.56, cm, 05/27/21 18:21:00 [employer], Height, 70.909, kg, 05/27/21 18:21:00 [employer], Weight tramadol No 50 mg = 1 Aj peggy hydrochlori 3-01 tab, PO, l de 50 MG 03:45: Q6H, PRN Ly nn Oral Tablet 00 Pain, No [Ultram] driving while under the influence of this medication , X 5 day, # 20 tab, 0 Refill(s), Pharmacy: [facility], 162.56, cm, 05/27/21 18:21:00 [employer], Height, 70.909, kg, 05/27/21 18:21:00 [employer], Weight tramadol No 50 mg = 1 Aj peggy hydrochlori 3-01 tab, PO, l de 50 MG 03:45: Q6H, PRN Ly nn Oral Tablet 00 Pain, No [Ultram] driving while under the influence of this medication , X 5 day, # 20 tab, 0 Refill(s), Pharmacy: [facility], 162.56, cm, 05/27/21 18:21:00 [employer], Height, 70.909, kg, 05/27/21 18:21:00 [employer], Weight tramadol No 50 mg = 1 Aj peggy hydrochlori 3-01 tab, PO, l de 50 MG 03:45: Q6H, PRN Ly nn Oral Tablet 00 Pain, No [Ultram] driving while under the influence of this medication , X 5 day, # 20 tab, 0 Refill(s), Pharmacy: [facility], 162.56, cm, 05/27/21 18:21:00 [employer], Height, 70.909, kg, 05/27/21 18:21:00 [employer], Weight tramadol No 50 mg = 1 Aj peggy hydrochlori 3-01 tab, PO, l de 50 MG 03:45: Q6H, PRN Ly nn Oral Tablet 00 Pain, No [Ultram] driving while under the influence of this medication , X 5 day, # 20 tab, 0 Refill(s), Pharmacy: [facility], 162.56, cm, 05/27/21 18:21:00 [employer], Height, 70.909, kg, 05/27/21 18:21:00 [employer], Weight tramadol No 50 mg = 1 Aj peggy hydrochlori 3-01 tab, PO, l de 50 MG 03:45: Q6H, PRN Ly nn Oral Tablet 00 Pain, No [Ultram] driving while under the influence of this medication , X 5 day, # 20 tab, 0 Refill(s), Pharmacy: [facility], 162.56, cm, 05/27/21 18:21:00 [employer], Height, 70.909, kg, 05/27/21 18:21:00 [employer], Weight tramadol No 50 mg = 1 Aj peggy hydrochlori 3-01 tab, PO, l de 50 MG 03:45: Q6H, PRN Ly nn Oral Tablet 00 Pain, No [Ultram] driving while under the influence of this medication , X 5 day, # 20 tab, 0 Refill(s), Pharmacy: [facility], 162.56, cm, 05/27/21 18:21:00 [employer], Height, 70.909, kg, 05/27/21 18:21:00 [employer], Weight tramadol No 50 mg = 1 Aj peggy hydrochlori 3-01 tab, PO, l de 50 MG 03:45: Q6H, PRN Ly nn Oral Tablet 00 Pain, No [Ultram] driving while under the influence of this medication , X 5 day, # 20 tab, 0 Refill(s), Pharmacy: [facility], 162.56, cm, 05/27/21 18:21:00 [employer], Height, 70.909, kg, 05/27/21 18:21:00 [employer], Weight tramadol No 50 mg = 1 Aj peggy hydrochlori 3-01 tab, PO, l de 50 MG 03:45: Q6H, PRN Ly nn Oral Tablet 00 Pain, No [Ultram] driving while under the influence of this medication , X 5 day, # 20 tab, 0 Refill(s), Pharmacy: [facility], 162.56, cm, 05/27/21 18:21:00 [employer], Height, 70.909, kg, 05/27/21 18:21:00 [employer], Weight tramadol No 50 mg = 1 Aj peggy hydrochlori 3-01 tab, PO, l de 50 MG 03:45: Q6H, PRN Ly nn Oral Tablet 00 Pain, No [Ultram] driving while under the influence of this medication , X 5 day, # 20 tab, 0 Refill(s), Pharmacy: [facility], 162.56, cm, 05/27/21 18:21:00 [employer], Height, 70.909, kg, 05/27/21 18:21:00 [employer], Weight clindamycin 2021-0 No 300 mg = 1 Memoria 300 mg oral 3-01 cap, PO, l capsule 03:44: Q8H, X 10 Ly nn 00 day, # 30 cap, 0 Refill(s), Pharmacy: [facility], 162.56, cm, 05/27/21 18:21:00 [employer], Height, 70.909, kg, 05/27/21 18:21:00 [employer], Weight clindamycin 2021-0 No 300 mg = 1 Memoria 300 mg oral 3-01 cap, PO, l capsule 03:44: Q8H, X 10 Ly nn 00 day, # 30 cap, 0 Refill(s), Pharmacy: [facility], 162.56, cm, 05/27/21 18:21:00 [employer], Height, 70.909, kg, 05/27/21 18:21:00 [employer], Weight clindamycin 2021-0 No 300 mg = 1 Memoria 300 mg oral 3-01 cap, PO, l capsule 03:44: Q8H, X 10 Ly nn 00 day, # 30 cap, 0 Refill(s), Pharmacy: [facility], 162.56, cm, 05/27/21 18:21:00 [employer], Height, 70.909, kg, 05/27/21 18:21:00 [employer], Weight clindamycin 2021-0 No 300 mg = 1 Memoria 300 mg oral 3-01 cap, PO, l capsule 03:44: Q8H, X 10 Ly nn 00 day, # 30 cap, 0 Refill(s), Pharmacy: [facility], 162.56, cm, 05/27/21 18:21:00 [employer], Height, 70.909, kg, 05/27/21 18:21:00 [employer], Weight clindamycin 2021-0 No 300 mg = 1 Memoria 300 mg oral 3-01 cap, PO, l capsule 03:44: Q8H, X 10 Ly nn 00 day, # 30 cap, 0 Refill(s), Pharmacy: [facility], 162.56, cm, 05/27/21 18:21:00 [employer], Height, 70.909, kg, 05/27/21 18:21:00 [employer], Weight clindamycin 2021-0 No 300 mg = 1 Memoria 300 mg oral 3-01 cap, PO, l capsule 03:44: Q8H, X 10 Ly nn 00 day, # 30 cap, 0 Refill(s), Pharmacy: [facility], 162.56, cm, 05/27/21 18:21:00 [employer], Height, 70.909, kg, 05/27/21 18:21:00 [employer], Weight clindamycin 2021-0 No 300 mg = 1 Memoria 300 mg oral 3-01 cap, PO, l capsule 03:44: Q8H, X 10 Ly nn 00 day, # 30 cap, 0 Refill(s), Pharmacy: [facility], 162.56, cm, 05/27/21 18:21:00 [employer], Height, 70.909, kg, 05/27/21 18:21:00 [employer], Weight clindamycin 2021-0 No 300 mg = 1 Memoria 300 mg oral 3-01 cap, PO, l capsule 03:44: Q8H, X 10 Ly nn 00 day, # 30 cap, 0 Refill(s), Pharmacy: [facility], 162.56, cm, 05/27/21 18:21:00 [employer], Height, 70.909, kg, 05/27/21 18:21:00 [employer], Weight clindamycin 2021-0 No 300 mg = 1 Memoria 300 mg oral 3-01 cap, PO, l capsule 03:44: Q8H, X 10 Ly nn 00 day, # 30 cap, 0 Refill(s), Pharmacy: [facility], 162.56, cm, 05/27/21 18:21:00 [employer], Height, 70.909, kg, 05/27/21 18:21:00 [employer], Weight clindamycin 2021-0 No 300 mg = 1 Memoria 300 mg oral 3-01 cap, PO, l capsule 03:44: Q8H, X 10 Ly nn 00 day, # 30 cap, 0 Refill(s), Pharmacy: [facility], 162.56, cm, 05/27/21 18:21:00 [employer], Height, 70.909, kg, 05/27/21 18:21:00 [employer], Weight clindamycin 2021-0 No 300 mg = 1 Memoria 300 mg oral 3-01 cap, PO, l capsule 03:44: Q8H, X 10 Ly nn 00 day, # 30 cap, 0 Refill(s), Pharmacy: [facility], 162.56, cm, 05/27/21 18:21:00 [employer], Height, 70.909, kg, 05/27/21 18:21:00 [employer], Weight clindamycin 2021-0 No 300 mg = 1 Memoria 300 mg oral 3-01 cap, PO, l capsule 03:44: Q8H, X 10 Ly nn 00 day, # 30 cap, 0 Refill(s), Pharmacy: [facility], 162.56, cm, 05/27/21 18:21:00 [employer], Height, 70.909, kg, 05/27/21 18:21:00 [employer], Weight clindamycin 2021-0 No 300 mg = 1 Memoria 300 mg oral 3-01 cap, PO, l capsule 03:44: Q8H, X 10 Ly nn 00 day, # 30 cap, 0 Refill(s), Pharmacy: [facility], 162.56, cm, 05/27/21 18:21:00 [employer], Height, 70.909, kg, 05/27/21 18:21:00 [employer], Weight clindamycin 2021-0 No 300 mg = 1 Memoria 300 mg oral 3-01 cap, PO, l capsule 03:44: Q8H, X 10 Ly nn 00 day, # 30 cap, 0 Refill(s), Pharmacy: [facility], 162.56, cm, 05/27/21 18:21:00 [employer], Height, 70.909, kg, 05/27/21 18:21:00 [employer], Weight clindamycin 2021-0 No 300 mg = 1 Memoria 300 mg oral 3-01 cap, PO, l capsule 03:44: Q8H, X 10 Ly nn 00 day, # 30 cap, 0 Refill(s), Pharmacy: [facility], 162.56, cm, 05/27/21 18:21:00 [employer], Height, 70.909, kg, 05/27/21 18:21:00 [employer], Weight clindamycin 2021-0 No 300 mg = 1 Memoria 300 mg oral 3-01 cap, PO, l capsule 03:44: Q8H, X 10 Ly nn 00 day, # 30 cap, 0 Refill(s), Pharmacy: [facility], 162.56, cm, 05/27/21 18:21:00 [employer], Height, 70.909, kg, 05/27/21 18:21:00 [employer], Weight clindamycin 2021-0 No 300 mg = 1 Memoria 300 mg oral 3-01 cap, PO, l capsule 03:44: Q8H, X 10 Ly nn 00 day, # 30 cap, 0 Refill(s), Pharmacy: [facility], 162.56, cm, 05/27/21 18:21:00 [employer], Height, 70.909, kg, 05/27/21 18:21:00 [employer], Weight clindamycin 2021-0 No 300 mg = 1 Memoria 300 mg oral 3-01 cap, PO, l capsule 03:44: Q8H, X 10 Ly nn 00 day, # 30 cap, 0 Refill(s), Pharmacy: [facility], 162.56, cm, 05/27/21 18:21:00 [employer], Height, 70.909, kg, 05/27/21 18:21:00 [employer], Weight clindamycin 2021-0 No 300 mg = 1 Memoria 300 mg oral 3-01 cap, PO, l capsule 03:44: Q8H, X 10 Ly nn 00 day, # 30 cap, 0 Refill(s), Pharmacy: [facility], 162.56, cm, 05/27/21 18:21:00 [employer], Height, 70.909, kg, 05/27/21 18:21:00 [employer], Weight clindamycin 2021-0 No 300 mg = 1 Memoria 300 mg oral 3-01 cap, PO, l capsule 03:44: Q8H, X 10 Ly nn 00 day, # 30 cap, 0 Refill(s), Pharmacy: [facility], 162.56, cm, 05/27/21 18:21:00 [employer], Height, 70.909, kg, 05/27/21 18:21:00 [employer], Weight clindamycin 2021-0 No 300 mg = 1 Memoria 300 mg oral 3-01 cap, PO, l capsule 03:44: Q8H, X 10 Ly nn 00 day, # 30 cap, 0 Refill(s), Pharmacy: [facility], 162.56, cm, 05/27/21 18:21:00 [employer], Height, 70.909, kg, 05/27/21 18:21:00 [employer], Weight clindamycin 2021-0 No 300 mg = 1 Memoria 300 mg oral 3-01 cap, PO, l capsule 03:44: Q8H, X 10 Ly nn 00 day, # 30 cap, 0 Refill(s), Pharmacy: [facility], 162.56, cm, 05/27/21 18:21:00 [employer], Height, 70.909, kg, 05/27/21 18:21:00 [employer], Weight clindamycin 2021-0 No 300 mg = 1 Memoria 300 mg oral 3-01 cap, PO, l capsule 03:44: Q8H, X 10 Ly nn 00 day, # 30 cap, 0 Refill(s), Pharmacy: [facility], 162.56, cm, 05/27/21 18:21:00 [employer], Height, 70.909, kg, 05/27/21 18:21:00 [employer], Weight clindamycin 2021-0 No 300 mg = 1 Memoria 300 mg oral 3-01 cap, PO, l capsule 03:44: Q8H, X 10 Ly nn 00 day, # 30 cap, 0 Refill(s), Pharmacy: [facility], 162.56, cm, 05/27/21 18:21:00 [employer], Height, 70.909, kg, 05/27/21 18:21:00 [employer], Weight clindamycin 2021-0 No 300 mg = 1 Memoria 300 mg oral 3-01 cap, PO, l capsule 03:44: Q8H, X 10 Ly nn 00 day, # 30 cap, 0 Refill(s), Pharmacy: [facility], 162.56, cm, 05/27/21 18:21:00 [employer], Height, 70.909, kg, 05/27/21 18:21:00 [employer], Weight clindamycin 2021-0 No 300 mg = 1 Memoria 300 mg oral 3-01 cap, PO, l capsule 03:44: Q8H, X 10 Ly nn 00 day, # 30 cap, 0 Refill(s), Pharmacy: [facility], 162.56, cm, 05/27/21 18:21:00 [employer], Height, 70.909, kg, 05/27/21 18:21:00 [employer], Weight clindamycin 2021-0 No 300 mg = 1 Memoria 300 mg oral 3-01 cap, PO, l capsule 03:44: Q8H, X 10 Ly nn 00 day, # 30 cap, 0 Refill(s), Pharmacy: [facility], 162.56, cm, 05/27/21 18:21:00 [employer], Height, 70.909, kg, 05/27/21 18:21:00 [employer], Weight clindamycin 2021-0 No 300 mg = 1 Memoria 300 mg oral 3-01 cap, PO, l capsule 03:44: Q8H, X 10 Ly nn 00 day, # 30 cap, 0 Refill(s), Pharmacy: [facility], 162.56, cm, 05/27/21 18:21:00 [employer], Height, 70.909, kg, 05/27/21 18:21:00 [employer], Weight clindamycin 2021-0 No 300 mg = 1 Memoria 300 mg oral 3-01 cap, PO, l capsule 03:44: Q8H, X 10 Ly nn 00 day, # 30 cap, 0 Refill(s), Pharmacy: [facility], 162.56, cm, 05/27/21 18:21:00 [employer], Height, 70.909, kg, 05/27/21 18:21:00 [employer], Weight clindamycin 2021-0 No 300 mg = 1 Memoria 300 mg oral 3-01 cap, PO, l capsule 03:44: Q8H, X 10 Ly nn 00 day, # 30 cap, 0 Refill(s), Pharmacy: [facility], 162.56, cm, 05/27/21 18:21:00 [employer], Height, 70.909, kg, 05/27/21 18:21:00 [employer], Weight clindamycin 2021-0 No 300 mg = 1 Memoria 300 mg oral 3-01 cap, PO, l capsule 03:44: Q8H, X 10 Ly nn 00 day, # 30 cap, 0 Refill(s), Pharmacy: [facility], 162.56, cm, 05/27/21 18:21:00 [employer], Height, 70.909, kg, 05/27/21 18:21:00 [employer], Weight clindamycin 2021-0 No 300 mg = 1 Memoria 300 mg oral 3-01 cap, PO, l capsule 03:44: Q8H, X 10 Ly nn 00 day, # 30 cap, 0 Refill(s), Pharmacy: [facility], 162.56, cm, 05/27/21 18:21:00 [employer], Height, 70.909, kg, 05/27/21 18:21:00 [employer], Weight clindamycin 2021-0 No 300 mg = 1 Memoria 300 mg oral 3-01 cap, PO, l capsule 03:44: Q8H, X 10 Ly nn 00 day, # 30 cap, 0 Refill(s), Pharmacy: [facility], 162.56, cm, 05/27/21 18:21:00 [employer], Height, 70.909, kg, 05/27/21 18:21:00 [employer], Weight clindamycin 2021-0 No 300 mg = 1 Memoria 300 mg oral 3-01 cap, PO, l capsule 03:44: Q8H, X 10 Ly nn 00 day, # 30 cap, 0 Refill(s), Pharmacy: [facility], 162.56, cm, 05/27/21 18:21:00 [employer], Height, 70.909, kg, 05/27/21 18:21:00 [employer], Weight clindamycin 2-0 No 300 mg = 1 Memoria 300 mg oral 3-01 cap, PO, l capsule 03:44: Q8H, X 10 Ly nn 00 day, # 30 cap, 0 Refill(s), Pharmacy: [facility], 162.56, cm, 05/27/21 18:21:00 [employer], Height, 70.909, kg, 05/27/21 18:21:00 [employer], Weight clindamycin 2021-0 No 300 mg = 1 Memoria 300 mg oral 3-01 cap, PO, l capsule 03:44: Q8H, X 10 Ly nn 00 day, # 30 cap, 0 Refill(s), Pharmacy: [facility], 162.56, cm, 05/27/21 18:21:00 [employer], Height, 70.909, kg, 05/27/21 18:21:00 [employer], Weight clindamycin 2021-0 No 300 mg = 1 Memoria 300 mg oral 3-01 cap, PO, l capsule 03:44: Q8H, X 10 Ly nn 00 day, # 30 cap, 0 Refill(s), Pharmacy: [facility], 162.56, cm, 05/27/21 18:21:00 [employer], Height, 70.909, kg, 05/27/21 18:21:00 [employer], Weight clindamycin 2021-0 No 300 mg = 1 Memoria 300 mg oral 3-01 cap, PO, l capsule 03:44: Q8H, X 10 Ly nn 00 day, # 30 cap, 0 Refill(s), Pharmacy: [facility], 162.56, cm, 05/27/21 18:21:00 [employer], Height, 70.909, kg, 05/27/21 18:21:00 [employer], Weight clindamycin 2021-0 No 300 mg = 1 Memoria 300 mg oral 3-01 cap, PO, l capsule 03:44: Q8H, X 10 Ly nn 00 day, # 30 cap, 0 Refill(s), Pharmacy: [facility], 162.56, cm, 05/27/21 18:21:00 [employer], Height, 70.909, kg, 05/27/21 18:21:00 [employer], Weight clindamycin 2021-0 No 300 mg = 1 Memoria 300 mg oral 3-01 cap, PO, l capsule 03:44: Q8H, X 10 Ly nn 00 day, # 30 cap, 0 Refill(s), Pharmacy: [facility], 162.56, cm, 05/27/21 18:21:00 [employer], Height, 70.909, kg, 05/27/21 18:21:00 [employer], Weight clindamycin 2021-0 No 300 mg = 1 Memoria 300 mg oral 3-01 cap, PO, l capsule 03:44: Q8H, X 10 Ly nn 00 day, # 30 cap, 0 Refill(s), Pharmacy: [facility], 162.56, cm, 05/27/21 18:21:00 [employer], Height, 70.909, kg, 05/27/21 18:21:00 [employer], Weight clindamycin 2021-0 No 300 mg = 1 Memoria 300 mg oral 3-01 cap, PO, l capsule 03:44: Q8H, X 10 Ly nn 00 day, # 30 cap, 0 Refill(s), Pharmacy: [facility], 162.56, cm, 05/27/21 18:21:00 [employer], Height, 70.909, kg, 05/27/21 18:21:00 [employer], Weight clindamycin 2021-0 No 300 mg = 1 Memoria 300 mg oral 3-01 cap, PO, l capsule 03:44: Q8H, X 10 Ly nn 00 day, # 30 cap, 0 Refill(s), Pharmacy: [facility], 162.56, cm, 05/27/21 18:21:00 [employer], Height, 70.909, kg, 05/27/21 18:21:00 [employer], Weight clindamycin 2021-0 No 300 mg = 1 Memoria 300 mg oral 3-01 cap, PO, l capsule 03:44: Q8H, X 10 Ly nn 00 day, # 30 cap, 0 Refill(s), Pharmacy: [facility], 162.56, cm, 05/27/21 18:21:00 [employer], Height, 70.909, kg, 05/27/21 18:21:00 [employer], Weight clindamycin 2021-0 No 300 mg = 1 Memoria 300 mg oral 3-01 cap, PO, l capsule 03:44: Q8H, X 10 Ly nn 00 day, # 30 cap, 0 Refill(s), Pharmacy: [facility] [place], 162.56, cm, 05/27/21 18:21:00 [employer], Height, 70.909, kg, 05/27/21 18:21:00 [employer], Weight clindamycin No 300 mg = 1 Memoria 300 mg oral 3-01 cap, PO, l capsule 03:44: Q8H, X 10 Ly nn day, # 30 cap, 0 Refill(s), Pharmacy: [facility] Pharm[facility] [place], 162.56, cm, 05/27/21 18:21:00 [employer], Height, 70.909, kg, 05/27/21 18:21:00 [employer], Weight Morphine No Notes: Memoria 3-01 (Same l 02:36: as:MORPhin [place] 00 e Sulfate) Zofran ODT No Notes: Memor ia 3-01 (Same as: l 02:36: Zofran [place] 00 ODT) Lidocaine Yes Notes: Memori a 3-01 (Same as: l 02:36: Xylocaine) [place] 00 Morphine No Notes: Memoria 3-01 (Same l 02:36: as:MORPhin [place] 00 e Sulfate) Zofran ODT No Notes: Memor ia 3-01 (Same as: l 02:36: Zofran [place] 00 ODT) Lidocaine Yes Notes: Memori a 3-01 (Same as: l 02:36: Xylocaine) [place] 00 Morphine No Notes: Memoria 3-01 (Same l 02:36: as:MORPhin [place] 00 e Sulfate) Zofran ODT No Notes: Memor ia 3-01 (Same as: l 02:36: Zofran [place] 00 ODT) Lidocaine Yes Notes: Memori a 3-01 (Same as: l 02:36: Xylocaine) [place] 00 Morphine No Notes: Memoria 3-01 (Same l 02:36: as:MORPhin [place] 00 e Sulfate) Zofran ODT No Notes: Memor ia 3-01 (Same as: l 02:36: Zofran [place] 00 ODT) Lidocaine Yes Notes: Memori a 3-01 (Same as: l 02:36: Xylocaine) [place] 00 Morphine No Notes: Memoria 3-01 (Same l 02:36: as:MORPhin [place] 00 e Sulfate) Zofran ODT No Notes: Memor ia 3-01 (Same as: l 02:36: Zofran [place] 00 ODT) Lidocaine Yes Notes: Memori a 3-01 (Same as: l 02:36: Xylocaine) [place] 00 Morphine No Notes: Memoria 3-01 (Same l 02:36: as:MORPhin [place] 00 e Sulfate) Zofran ODT No Notes: Memor ia 3-01 (Same as: l 02:36: Zofran [place] 00 ODT) Lidocaine Yes Notes: Memori a 3-01 (Same as: l 02:36: Xylocaine) [place] 00 Morphine No Notes: Memoria 3-01 (Same l 02:36: as:MORPhin [place] 00 e Sulfate) Zofran ODT No Notes: Memor ia 3-01 (Same as: l 02:36: Zofran [place] 00 ODT) Lidocaine Yes Notes: Memori a 3-01 (Same as: l 02:36: Xylocaine) [place] 00 Morphine No Notes: Memoria 3-01 (Same l 02:36: as:MORPhin [place] 00 e Sulfate) Zofran ODT No Notes: Memor ia 3-01 (Same as: l 02:36: Zofran [place] 00 ODT) Lidocaine Yes Notes: Memori a 3-01 (Same as: l 02:36: Xylocaine) [place] 00 Morphine No Notes: Memoria 3-01 (Same l 02:36: as:MORPhin [place] 00 e Sulfate) Zofran ODT No Notes: Memor ia 3-01 (Same as: l 02:36: Zofran [place] 00 ODT) Lidocaine Yes Notes: Memori a 3-01 (Same as: l 02:36: Xylocaine) [place] 00 Morphine No Notes: Memoria 3-01 (Same l 02:36: as:MORPhin [place] 00 e Sulfate) Zofran ODT No Notes: Memor ia 3-01 (Same as: l 02:36: Zofran [place] 00 ODT) Lidocaine Yes Notes: Memori a 3-01 (Same as: l 02:36: Xylocaine) [place] 00 Morphine No Notes: Memoria 3-01 (Same l 02:36: as:MORPhin [place] 00 e Sulfate) Zofran ODT No Notes: Memor ia 3-01 (Same as: l 02:36: Zofran [place] 00 ODT) Lidocaine Yes Notes: Memori a 3-01 (Same as: l 02:36: Xylocaine) [place] 00 Morphine No Notes: Memoria 3-01 (Same l 02:36: as:MORPhin [place] 00 e Sulfate) Zofran ODT No Notes: Memor ia 3-01 (Same as: l 02:36: Zofran [place] 00 ODT) Lidocaine Yes Notes: Memori a 3-01 (Same as: l 02:36: Xylocaine) [place] 00 Morphine No Notes: Memoria 3-01 (Same l 02:36: as:MORPhin [place] 00 e Sulfate) Zofran ODT No Notes: Memor ia 3-01 (Same as: l 02:36: Zofran [place] 00 ODT) Lidocaine Yes Notes: Memori a 3-01 (Same as: l 02:36: Xylocaine) [place] 00 Morphine No Notes: Memoria 3-01 (Same l 02:36: as:MORPhin [place] 00 e Sulfate) Zofran ODT No Notes: Memor ia 3-01 (Same as: l 02:36: Zofran [place] 00 ODT) Lidocaine Yes Notes: Memori a 3-01 (Same as: l 02:36: Xylocaine) [place] 00 Morphine No Notes: Memoria 3-01 (Same l 02:36: as:MORPhin [place] 00 e Sulfate) Zofran ODT No Notes: Memor ia 3-01 (Same as: l 02:36: Zofran [place] 00 ODT) Lidocaine Yes Notes: Memori a 3-01 (Same as: l 02:36: Xylocaine) [place] 00 Morphine No Notes: Memoria 3-01 (Same l 02:36: as:MORPhin [place] 00 e Sulfate) Zofran ODT No Notes: Memor ia 3-01 (Same as: l 02:36: Zofran [place] 00 ODT) Lidocaine Yes Notes: Memori a 3-01 (Same as: l 02:36: Xylocaine) [place] 00 Morphine No Notes: Memoria 3-01 (Same l 02:36: as:MORPhin [place] 00 e Sulfate) Zofran ODT No Notes: Memor ia 3-01 (Same as: l 02:36: Zofran [place] 00 ODT) Lidocaine Yes Notes: Memori a 3-01 (Same as: l 02:36: Xylocaine) [place] 00 Morphine No Notes: Memoria 3-01 (Same l 02:36: as:MORPhin [place] 00 e Sulfate) Zofran ODT No Notes: Memor ia 3-01 (Same as: l 02:36: Zofran [place] 00 ODT) Lidocaine Yes Notes: Memori a 3-01 (Same as: l 02:36: Xylocaine) [place] 00 Morphine No Notes: [facility]oria 3-01 (Same l 02:36: as:MORPhin [place] 00 e Sulfate) Zofran ODT No Notes: Memor ia 3-01 (Same as: l 02:36: Zofran [place] 00 ODT) Lidocaine Yes Notes: Memori a 3-01 (Same as: l 02:36: Xylocaine) [place] 00 Morphine No Notes: [facility]oria 3-01 (Same l 02:36: as:MORPhin [place] 00 e Sulfate) Zofran ODT No Notes: Memor ia 3-01 (Same as: l 02:36: Zofran [place] 00 ODT) Morphine No Notes: [facility]oria 3-01 (Same l 02:36: as:MORPhin [place] 00 e Sulfate) Zofran ODT No Notes: Memor ia 3-01 (Same as: l 02:36: Zofran [place] 00 ODT) Lidocaine Yes Notes: Memori a 3-01 (Same as: l 02:36: Xylocaine) [place] 00 Lidocaine Yes Notes: Memori a 3-01 (Same as: l 02:36: Xylocaine) [place] 00 Morphine No Notes: Memoria 3-01 (Same l 02:36: as:MORPhin [place] 00 e Sulfate) Zofran ODT No Notes: Memor ia 3-01 (Same as: l 02:36: Zofran [place] 00 ODT) Lidocaine Yes Notes: Memori a 3-01 (Same as: l 02:36: Xylocaine) [place] 00 Morphine No Notes: Memoria 3-01 (Same l 02:36: as:MORPhin [place] 00 e Sulfate) Zofran ODT No Notes: Memor ia 3-01 (Same as: l 02:36: Zofran [place] 00 ODT) Lidocaine Yes Notes: Memori a 3-01 (Same as: l 02:36: Xylocaine) [place] 00 Morphine No Notes: Memoria 3-01 (Same l 02:36: as:MORPhin [place] 00 e Sulfate) Zofran ODT No Notes: Memor ia 3-01 (Same as: l 02:36: Zofran [place] 00 ODT) Lidocaine Yes Notes: Memori a 3-01 (Same as: l 02:36: Xylocaine) [place] 00 Morphine No Notes: [facility]oria 3-01 (Same l 02:36: as:MORPhin [place] 00 e Sulfate) Zofran ODT No Notes: Memor ia 3-01 (Same as: l 02:36: Zofran [place] 00 ODT) Lidocaine Yes Notes: Memori a 3-01 (Same as: l 02:36: Xylocaine) [place] 00 Morphine No Notes: Memoria 3-01 (Same l 02:36: as:MORPhin [place] 00 e Sulfate) Zofran ODT No Notes: Memor ia 3-01 (Same as: l 02:36: Zofran [place] 00 ODT) Lidocaine Yes Notes: Memori a 3-01 (Same as: l 02:36: Xylocaine) [place] 00 Morphine No Notes: Memoria 3-01 (Same l 02:36: as:MORPhin [place] 00 e Sulfate) Zofran ODT No Notes: Memor ia 3-01 (Same as: l 02:36: Zofran [place] 00 ODT) Lidocaine Yes Notes: Memori a 3-01 (Same as: l 02:36: Xylocaine) [place] 00 Morphine No Notes: Memoria 3-01 (Same l 02:36: as:MORPhin [place] 00 e Sulfate) Zofran ODT No Notes: Memor ia 3-01 (Same as: l 02:36: Zofran [place] 00 ODT) Lidocaine Yes Notes: Memori a 3-01 (Same as: l 02:36: Xylocaine) [place] 00 Morphine No Notes: Memoria 3-01 (Same l 02:36: as:MORPhin [place] 00 e Sulfate) Zofran ODT No Notes: Memor ia 3-01 (Same as: l 02:36: Zofran [place] 00 ODT) Lidocaine Yes Notes: Memori a 3-01 (Same as: l 02:36: Xylocaine) [place] 00 Morphine No Notes: Memoria 3-01 (Same l 02:36: as:MORPhin [place] 00 e Sulfate) Zofran ODT No Notes: Memor ia 3-01 (Same as: l 02:36: Zofran [place] 00 ODT) Lidocaine Yes Notes: Memori a 3-01 (Same as: l 02:36: Xylocaine) [place] 00 Morphine No Notes: Memoria 3-01 (Same l 02:36: as:MORPhin [place] 00 e Sulfate) Zofran ODT No Notes: Memor ia 3-01 (Same as: l 02:36: Zofran [place] 00 ODT) Lidocaine Yes Notes: Memori a 3-01 (Same as: l 02:36: Xylocaine) [place] 00 Morphine No Notes: Memoria 3-01 (Same l 02:36: as:MORPhin [place] 00 e Sulfate) Zofran ODT No Notes: Memor ia 3-01 (Same as: l 02:36: Zofran [place] 00 ODT) Lidocaine Yes Notes: Memori a 3-01 (Same as: l 02:36: Xylocaine) [place] 00 Morphine No Notes: Memoria 3-01 (Same l 02:36: as:MORPhin [place] 00 e Sulfate) Zofran ODT No Notes: Memor ia 3-01 (Same as: l 02:36: Zofran [place] 00 ODT) Lidocaine Yes Notes: Memori a 3-01 (Same as: l 02:36: Xylocaine) [place] 00 Morphine No Notes: Memoria 3-01 (Same l 02:36: as:MORPhin [place] 00 e Sulfate) Zofran ODT No Notes: Memor ia 3-01 (Same as: l 02:36: Zofran [place] 00 ODT) Lidocaine Yes Notes: Memori a 3-01 (Same as: l 02:36: Xylocaine) [place] 00 Morphine No Notes: [facility]oria 3-01 (Same l 02:36: as:MORPhin [place] 00 e Sulfate) Zofran ODT No Notes: Memor ia 3-01 (Same as: l 02:36: Zofran [place] 00 ODT) Lidocaine Yes Notes: Memori a 3-01 (Same as: l 02:36: Xylocaine) [place] 00 Morphine No Notes: [facility]oria 3-01 (Same l 02:36: as:MORPhin [place] 00 e Sulfate) Zofran ODT No Notes: Memor ia 3-01 (Same as: l 02:36: Zofran [place] 00 ODT) Lidocaine Yes Notes: Memori a 3-01 (Same as: l 02:36: Xylocaine) [place] 00 Morphine No Notes: Memoria 3-01 (Same l 02:36: as:MORPhin [place] 00 e Sulfate) Zofran ODT No Notes: Memor ia 3-01 (Same as: l 02:36: Zofran [place] 00 ODT) Lidocaine Yes Notes: Memori a 3-01 (Same as: l 02:36: Xylocaine) [place] 00 Morphine No Notes: [facility]oria 3-01 (Same l 02:36: as:MORPhin [place] 00 e Sulfate) Zofran ODT No Notes: Memor ia 3-01 (Same as: l 02:36: Zofran [place] 00 ODT) Lidocaine Yes Notes: Memori a 3-01 (Same as: l 02:36: Xylocaine) [place] 00 Morphine No Notes: [facility]oria 3-01 (Same l 02:36: as:MORPhin [place] 00 e Sulfate) Zofran ODT No Notes: Memor ia 3-01 (Same as: l 02:36: Zofran [place] 00 ODT) Lidocaine Yes Notes: Memori a 3-01 (Same as: l 02:36: Xylocaine) [place] 00 Morphine 0 No Notes: [facility]oria 3-01 (Same l 02:36: as:MORPhin [place] 00 e Sulfate) Zofran ODT No Notes: Memor ia 3-01 (Same as: l 02:36: Zofran [place] 00 ODT) Lidocaine Yes Notes: Memori a 3-01 (Same as: l 02:36: Xylocaine) [place] 00 Morphine No Notes: [facility]oria 3-01 (Same l 02:36: as:MORPhin [place] 00 e Sulfate) Zofran ODT No Notes: Memor ia 3-01 (Same as: l 02:36: Zofran [place] 00 ODT) Lidocaine Yes Notes: Memori a 3-01 (Same as: l 02:36: Xylocaine) [place] 00 Morphine No Notes: [facility] 3-01 (Same l 02:36: as:MORPhin [place] 00 e Sulfate) Zofran ODT No Notes: Memor ia 3-01 (Same as: l 02:36: Zofran [place] 00 ODT) Lidocaine Yes Notes: Memori a 3-01 (Same as: l 02:36: Xylocaine) [place] 00 Morphine No Notes: [facility]oria 3-01 (Same l 02:36: as:MORPhin [place] 00 e Sulfate) Zofran ODT No Notes: Memor ia 3-01 (Same as: l 02:36: Zofran [place] 00 ODT) Lidocaine Yes Notes: Memori a 3-01 (Same as: l 02:36: Xylocaine) [place] 00 Morphine No Notes: [facility] 3-01 (Same l 02:36: as:MORPhin [place] 00 e Sulfate) Zofran ODT No Notes: Memor ia 3-01 (Same as: l 02:36: Zofran [place] 00 ODT) Lidocaine Yes Notes: Memori a 3-01 (Same as: l 02:36: Xylocaine) [place] 00 Morphine No Notes: [facility] 3-01 (Same l 02:36: as:MORPhin [place] 00 e Sulfate) Zofran ODT No Notes: [facility] 3-01 (Same as: l 02:36: Zofran Rodney 00 ODT) Lidocaine Yes Notes: [facility] a 3-01 (Same as: l 02:36: Xylocaine) Rodney 00 Morphine No Notes: [facility] 3-01 (Same l 02:36: as:MORPhin [place] 00 e Sulfate) Zofran ODT No Notes: [facility] ia 3-01 (Same as: l 02:36: Zofran [place] 00 ODT) Lidocaine Yes Notes: Henny a 3-01 (Same as: l 02:36: Xylocaine) salicylic 2022- No [id number] QD Apply Me thodi acid-lactic 2 02-[address] acid 17 % 00:00: 05:59 daily. [facility] external 00 :00 l solution salicylic 2021- No [id number] QD Apply Me thodi acid-lactic 2-20 12- topically st acid 17 % 00:00: 00:00 daily. [facility] external 00 :00 l solution salicylic 2021- No [id number] QD Apply Me thodi acid-lactic 2-20 12- topically st acid 17 % 00:00: 00:00 daily. [facility] external 00 :00 l solution salicylic 2021- No [id number] QD Apply Me [facility]odi acid-lactic 2-20 12- topically st acid 17 % 00:00: 00:00 daily. [facility] external 00 :00 l solution spironolact 2021- No [id number] 25mg QD Take 1 [facility] one 05-22 04-05 tablet (25 st (Aldactone) 00:00: 00:00 mg total) [facility] 25 MG 00 :00 by mouth l tablet daily for 90 days. spironolact 2021- No [id number] 25mg QD Take 1 [facility] one 2- 04-05 tablet (25 st (Aldactone) 00:00: 00:00 mg total) [facility] 25 MG 00 :00 by mouth l tablet daily for 90 days. multivit-mi Yes 1{tbl} Take 1 [facility] n/iron/foli 1-[address] c/lutein 10:42: mouth [facility]osp[facility] (CENTRUM 50 daily. l SILVER WOMEN ORAL) ascorbic Yes 1000mg Q.5D Take 1,000 [facility] acid, 1-[address] vitamin C, 10:42: mouth 2 [facility] (ascorbic 50 (two) l acid with times a anselmo hips) day. 500 MG tablet multivit-mi Yes 1{tbl} Take 1 Me thodi n/iron/foli 1-[address] c/lutein 10:42: mouth [facility]osp[facility] (CENTRUM 50 daily. l SILVER WOMEN ORAL) ascorbic 0 Yes 1000mg Q.5D Take 1,000 [facility] acid, 1-[address] vitamin C, 10:42: mouth 2 [facility] (ascorbic 50 (two) l acid with times a anselmo hips) day. 500 MG tablet TiZANidine 0 Yes [id number] 2mg QD Take 1 [facility] (Zanaflex) 1-18 capsule (2 st 2 MG 00:00: mg total) [facility]ospita capsule 00 by mouth l nightly. TiZANidine 2021-0 Yes [id number] 2mg QD Take 1 [facility] (Zanaflex) 1-18 capsule (2 st 2 MG 00:00: mg total) [facility]osp[facility] capsule 00 by mouth l nightly. lactulose 2021- No [id number] 10g Q.[id number] Take 15 mL [facility] 10 gram/15 -14 08-19 [id number] (10 g s t mL (15 mL) 00:00: 00:00 3D total) by H [facility]sp[facility] solution 00 :00 mouth 3 l (three) times a day for 90 days. lactulose 2021- No [id number] 10g Q.79491812 Take 15 mL [facility] 10 gram/15 -18 -19 [id number] (10 g s t mL (15 mL) 00:00: 00:00 3D total) by [facility] solution 00 :00 mouth 3 l (three) times a day for 90 days. lactulose 2021- No [id number] 10g Q.[id number] Take 15 mL [facility] 10 gram/15 -18 -19 [id number] (10 g s t mL (15 mL) 00:00: 00:00 3D total) by [facility] solution 00 :00 mouth 3 l (three) times a day for 90 days. hydroCHLORO 2021- No [id number] 12.5mg QD Take 1 [facility] thiazide -18 -[address] (HYDRODIURI 00:00: 04:59 (12.5 mg H [facility]spita L) 12.5 MG 00 :00 total) by l tablet mouth every morning for 90 days. lisinopriL 2021- No [id number] 40mg QD Take 1 [facility] (PRINIVIL) 04-16-19 tablet (40 st 40 mg 00:00: 04:59 mg total) Hospit [facility] tablet 00 :00 by mouth l nightly. lactulose 2021- No [id number] 10g Q.[id number] Take 15 mL [facility] 10 gram/15 04-16-19 [id number] (10 g s t mL (15 mL) 00:00: 04:59 3D total) by [facility] solution 00 :00 mouth 3 l (three) times a day for 90 days. hydroCHLORO 2021- No [id number] 12.5mg QD Take 1 [facility] thiazide 04-16- tablet st (HYDRODIURI 00:00: 04:59 (12.5 mg H [facility] L) 12.5 MG 00 :00 total) by l tablet mouth every morning for 90 days. lisinopriL 2021- No [id number] 40mg QD Take 1 [facility] (PRINIVIL) 04-16 tablet (40 st 40 mg 00:00: 04:59 mg total) Hospit a tablet 00 :00 by mouth l nightly. lactulose 2021- No [id number] 10g Q.[id number] Take 15 mL [facility] 10 gram/15 04-1619 [id number] (10 g s t mL (15 mL) 00:00: 04:59 3D total) by [facility] solution 00 :00 mouth 3 l (three) times a day for 90 days. hydroCHLORO 2021- No [id number] 12.5mg QD Take 1 [facility] thiazide 04-16-[address] (HYDRODIURI 00:00: 00:00 (12.5 mg [facility] L) 12.5 MG 00 :00 total) by l tablet mouth every morning for 90 days. lisinopriL 2021- No [id number] 40mg QD Take 1 [facility] (PRINIVIL) 04-16-05 tablet (40 st 40 mg 00:00: 00:00 mg total) Hospit a tablet 00 :00 by mouth l nightly. TiZANidine 2021- No [id number] 2mg QD Take 1 [facility] (Zanaflex) 04-16- capsule (2 st 2 MG 00:00: 00:00 mg total) [facility]osp[facility] capsule 00 :00 by mouth l nightly. hydroCHLORO 2021- No [id number] 12.5mg QD Take 1 [facility] thiazide 04-[address] (HYDRODIURI 00:00: 00:00 (12.5 mg [facility] L) 12.5 MG 00 :00 total) by l tablet mouth every morning for 90 days. lisinopriL 2021- No [id number] 40mg QD Take 1 [facility] (PRINIVIL) 04-16 tablet (40 st 40 mg 00:00: 00:00 mg total) Hospit a tablet 00 :00 by mouth l nightly. TiZANidine 2021- No [id number] 2mg QD Take 1 [facility] (Zanaflex) 04-16 capsule (2 st 2 MG 00:00: 00:00 mg total) [facility]osp[facility] capsule 00 :00 by mouth l nightly. varicella-z 2021- No [id number] .5mL Inject 0.5 [facility] jorge luis 04-[address] gE-AS01B, 00:00: 05:59 the [facility] PF, 00 :00 shoulder, l (Shingrix, thigh, or PF,) 50 buttocks mcg/0.5 mL once for 1 suspension dose. for reconstitut ion IM injection varicella-z 2021- No [id number] .5mL Inject 0.5 [facility] jorge luis 04-[address] gE-AS01B, 00:00: 05:59 the [facility] PF, 00 :00 shoulder, l (Shingrix, thigh, or PF,) 50 buttocks mcg/0.5 mL once for 1 suspension dose. for reconstitut ion IM injection varicella-z 2021- No [id number] .5mL Inject 0.5 [facility] jorge luis 04-[address] gE-AS01B, 00:00: 05:59 the [facility] PF, 00 :00 shoulder, l (Shingrix, thigh, or PF,) 50 buttocks mcg/0.5 mL once for 1 suspension dose. for reconstitut ion IM injection ergocalcife 2020-03 Yes TAKE 1 [facility] cheryl rol 0-[address] (VITAMIN 00:00: MOUTH ONCE [facility] angel D2) 50 00 A WEEK l unit capsule ergocalcife 2020-03 Yes TAKE 1 [facility] cheryl rol 0-[address] (VITAMIN 00:00: MOUTH ONCE Hos angel D2) 50 00 A WEEK l unit capsule ergocalcife 2020-03- No TAKE 1 [facility]odi rol 0-22 08-[address] (VITAMIN 00:00: 00:00 MOUTH ONCE [facility] D2) 00 :00 A WEEK l unit capsule ergocalcife 2020-03- No TAKE 1 [facility]odi rol 0-22 08-[address] (VITAMIN 00:00: 00:00 MOUTH ONCE [facility] D2) 00 :00 A WEEK l unit capsule ergocalcife 2020-03- No TAKE 1 [facility]odi rol 0-22 08-[address] (VITAMIN 00:00: 00:00 MOUTH ONCE [facility] D2) 00 :00 A WEEK l unit capsule venlafaxine 2021- No [id number] 37.5mg QD Take 1 [facility] XR (Effexor 12-21-[address] XR) 37.5 MG 00:00: 04:59 (37.5 mg [facility] 24 hr 00 :00 total) by l capsule mouth daily. venlafaxine 2021- No [id number] 37.5mg QD Take 1 [facility] XR (Effexor 12-21-[address] XR) 37.5 MG 00:00: 04:59 (37.5 mg [facility] 24 hr 00 :00 total) by l capsule mouth daily. venlafaxine 2021- No [id number] 37.5mg QD Take 1 [facility] XR (Effexor 12-21 04-[address] XR) 37.5 MG 00:00: 00:00 (37.5 mg [facility] 24 hr 00 :00 total) by l capsule mouth daily. venlafaxine 2021- No [id number] 37.5mg QD Take 1 [facility] XR (Effexor 12-21-[address] XR) 37.5 MG 00:00: 00:00 (37.5 mg [facility] 24 hr 00 :00 total) by l capsule mouth daily. SUMAtriptan 2020- No [id number] 1{spray Q2H 1 spray [facility] (Imitrex) 12-21 } into each st 20 00:00: 05:59 nostril [facility]osp[facility] mg/actuatio 00 :00 every 2 l n nasal (two) spray hours as needed for migraine (within 30 min onset migraine) for up to 90 days. lactulose 2020- No [id number] 30g Q.[id number] Take 45 mL [facility] 10 gram/15 12-21 [id number] (30 g s t mL (15 mL) 00:00: 05:59 3D total) by [facility] solution 00 :00 mouth 3 l (three) times a day as needed (constipat ion) for up to 90 days. metoprolol 2020- No [id number] 12.5mg QD Take 0.5 [facility] succinate 12-[address] XL (Toprol 00:00: 05:59 (12.5 mg [facility] XL) 25 mg 00 :00 total) by l 24 hr mouth tablet nightly for 90 days. SUMAtriptan 2020- No [id number] 1{spray Q2H 1 spray [facility] (Imitrex) 12-21 } into each st 20 00:00: 05:59 nostril [facility]osp[facility] mg/actuatio 00 :00 every 2 l n nasal (two) spray hours as needed for migraine (within 30 min onset migraine) for up to 90 days. lactulose 2020- No [id number] 30g Q.[id number] Take 45 mL [facility] 10 gram/15 12-21 [id number] (30 g s t mL (15 mL) 00:00: 05:59 3D total) by [facility] solution 00 :00 mouth 3 l (three) times a day as needed (constipat ion) for up to 90 days. metoprolol No [id number] 12.5mg QD Take 0.5 [facility] succinate 12-[address] XL (Toprol 00:00: 05:59 (12.5 mg [facility] XL) 25 mg 00 :00 total) by l 24 hr mouth tablet nightly for 90 days. SUMAtriptan 2020- No [id number] 1{spray Q2H 1 spray [facility] (Imitrex) 12-21 } into each st 20 00:00: 05:59 nostril [facility]osp[facility] mg/actuatio 00 :00 every 2 l n nasal (two) spray hours as needed for migraine (within 30 min onset migraine) for up to 90 days. lactulose 2020- No [id number] 30g Q.[id number] Take 45 mL [facility] 10 gram/15 12-21 [id number] (30 g s t mL (15 mL) 00:00: 05:59 3D total) by [facility] solution 00 :00 mouth 3 l (three) times a day as needed (constipat ion) for up to 90 days. metoprolol 2020- No [id number] 12.5mg QD Take 0.5 [facility] succinate 12-[address] XL (Toprol 00:00: 05:59 (12.5 mg [facility] XL) 25 mg 00 :00 total) by l 24 hr mouth tablet nightly for 90 days. lisinopriL 2021- No [id number] 40mg QD Take 1 [facility] (PRINIVIL) 11-20 tablet (40 st 40 mg 00:00: 00:00 mg total) [facility] a tablet 00 :00 by mouth l daily. lisinopriL 2021- No [id number] 40mg QD Take 1 [facility] (PRINIVIL) 11-20 tablet (40 st 40 mg 00:00: 00:00 mg total) Hospit a tablet 00 :00 by mouth l daily. lisinopriL 2021- No [id number] 40mg QD Take 1 [facility] (PRINIVIL) 11-20 tablet (40 st 40 mg 00:00: 00:00 mg total) Hospit a tablet 00 :00 by mouth l daily. psyllium 2021- No [id number] 1{packe Q.5D Take 1 [facility] (Metamucil, 6- 06-05 t} packet by st with 00:00: 04:59 mouth 2 [facility]ospita sugar,) 3.4 00 :00 (two) l gram packet times a day. psyllium 2021- No [id number] 1{packe Q.5D Take 1 [facility] (Metamucil, 6- 06-05 t} packet by st with 00:00: 04:59 mouth 2 [facility]osp[facility] sugar,) 3.4 00 :00 (two) l gram packet times a day. psyllium 2021- No [id number] 1{packe Q.5D Take 1 [facility] (Metamucil, -07 03-05 t} packet by st with 00:00: 04:59 mouth 2 [facility]osp[facility] sugar,) 3.4 00 :00 (two) l gram packet times a day. psyllium 2021- No [id number] 1{packe Q.5D Take 1 [facility] (Metamucil, 6- 06-05 t} packet by st with 00:00: 04:59 mouth 2 [facility]osp[facility] sugar,) 3.4 00 :00 (two) l gram packet times a day. psyllium 2021- No [id number] 1{packe Q.5D Take 1 [facility] (Metamucil, - 06-05 t} packet by st with 00:00: 04:59 mouth 2 [facility]osp[facility] sugar,) 3.4 00 :00 (two) l gram packet times a day. docusate 2020- No [id number] 100mg Q.5D Take 1 [facility] sodium 08-[address] (Colace) 00:00: 04:59 (100 mg Hospi ta 100 MG 00 :00 total) by l capsule mouth 2 (two) times a day for 30 days. lactulose 2020- No [id number] 10g Q.[id number] Take 15 mL [facility] 10 gram/15 08-31 [id number] (10 g s t mL (15 mL) 00:00: 04:59 3D total) by [facility] solution 00 :00 mouth 3 l (three) times a day for 30 days. docusate No [id number] 100mg Q.5D Take 1 [facility] sodium 08-[address] (Colace) 00:00: 04:59 (100 mg Hospi ta 100 MG 00 :00 total) by l capsule mouth 2 (two) times a day for 30 days. lactulose 2020- No [id number] 10g Q.[id number] Take 15 mL [facility] 10 gram/15 08-31 [id number] (10 g s t mL (15 mL) 00:00: 04:59 3D total) by [facility] solution 00 :00 mouth 3 l (three) times a day for 30 days. alendronate Yes [id number] TAKE ONE [facility] (FOSAMAX) 07-26 (1) st 70 MG 00:00: TABLET(S) [facility]ospita tablet 00 BY MOUTH l EVERY 7 DAYS. alendronate Yes [id number] TAKE ONE [facility] (FOSAMAX) 07-26 (1) st 70 MG 00:00: TABLET(S) [facility]ospita tablet 00 BY MOUTH l EVERY 7 DAYS. alendronate 2021- No [id number] TAKE ONE [facility] (FOSAMAX) 07-26 (1) st 70 MG 00:00: 00:00 TABLET(S) Hospit a tablet 00 :00 BY MOUTH l EVERY 7 DAYS. alendronate 2021- No [id number] TAKE ONE [facility] (FOSAMAX) 07-26 (1) st 70 MG 00:00: 00:00 TABLET(S) Hospit a tablet 00 :00 BY MOUTH l EVERY 7 DAYS. metFORMIN 2021- No [id number] 500mg QD Take 1 [facility] XR 07-[address] (GLUCOPHAGE 00:00: 04:59 (500 mg [facility] -XR) 500 mg 00 :00 total) by l 24 hr mouth tablet daily with breakfast. metFORMIN 2021- No [id number] 500mg QD Take 1 [facility] XR 07-[address] (GLUCOPHAGE 00:00: 04:59 (500 mg [facility] -XR) 500 mg 00 :00 total) by l 24 hr mouth tablet daily with breakfast. metFORMIN 2021- No [id number] 500mg QD Take 1 [facility] XR 07-[address] (GLUCOPHAGE 00:00: 04:59 (500 mg [facility] -XR) 500 mg 00 :00 total) by l 24 hr mouth tablet daily with breakfast. metFORMIN 2021- No [id number] 500mg QD Take 1 [facility] XR 07-[address] (GLUCOPHAGE 00:00: 04:59 (500 mg [facility] -XR) 500 mg 00 :00 total) by l 24 hr mouth tablet daily with breakfast. pantoprazol No 40mg QD Take 40 mg [facility] e 07-[address] (PROTONIX) 09:26: 00:00 daily. [facility]osp [facility] 40 MG EC 29 :00 l tablet pantoprazol No 40mg QD Take 40 mg [facility] e 07-[address] (PROTONIX) 09:26: 00:00 daily. [facility]osp [facility] 40 MG EC 29 :00 l tablet doxycycline 2020- No Take by Me luciano (VIBRAMYCIN 4-05 04-[address] ) 50 mg/5 09:25: 00:00 Hospita mL syrup 53 :00 l doxycycline 2020- No Take by thcheryl (VIBRAMYCIN 4-05 04-[address] ) 50 [...] times a l day. venlafaxine 2020- No [id number] 37.5mg QD Take 1 [facility] XR (Effexor 4-05 09-[address] XR) 37.5 MG 00:00: 00:00 (37.5 mg [facility] 24 hr 00 :00 total) by l capsule mouth daily. venlafaxine 2020- No [id number] 37.5mg QD Take 1 [facility] XR (Effexor 4-05 09-[address] XR) 37.5 MG 00:00: 00:00 (37.5 mg [facility] 24 hr 00 :00 total) by l capsule mouth daily. venlafaxine 2020- No [id number] 37.5mg QD Take 1 [facility] XR (Effexor 4-05 09-[address] XR) 37.5 MG 00:00: 00:00 (37.5 mg [facility] 24 hr 00 :00 total) by l capsule mouth daily. terbinafine 2020- No 250mg QD Take 1 [facility] HCL 07-02-[address] (LamiSIL) 00:00: 04:59 (250 mg [facility]osp [facility] 250 mg 00 :00 total) by l tablet mouth daily for 90 days. terbinafine 2020- No 250mg QD Take 1 [facility] HCL 07-[address] (LamiSIL) 00:00: 04:59 (250 mg [facility]osp [facility] 250 mg 00 :00 total) by l tablet mouth daily for 90 days. varicella-z 2020- No [id number] .5mL Inject 0.5 [facility] jorge luis 07-02- mL into st gE-AS01B, 00:00: 04:59 the [facility] PF, 00 :00 shoulder, l (Shingrix, thigh, or PF,) 50 buttocks mcg/0.5 mL once for 1 suspension dose. for reconstitut ion IM injection varicella-z 2020- No [id number] .5mL Inject 0.5 [facility] jorge luis 07-02-[address] gE-AS01B, 00:00: 04:59 the [facility] PF, 00 :00 shoulder, l (Shingrix, thigh, or PF,) 50 buttocks mcg/0.5 mL once for 1 suspension dose. for reconstitut ion IM injection ZOLMitripta 2020- No [id number] 2.5mg Take 1 [facility] n (Zomig) 05-[address] 2.5 MG 00:00: 00:00 (2.5 mg [facility]osp[facility] tablet 00 :00 total) by l mouth once as needed for migraine. May repeat in 2 hours if unresolved . Do not exceed 10 mg in 24 hours. ZOLMitripta 2020- No [id number] 2.5mg Take 1 [facility] n (Zomig) 05-[address] 2.5 MG 00:00: 00:00 (2.5 mg [facility]osp[facility] tablet 00 :00 total) by l mouth once as needed for migraine. May repeat in 2 hours if unresolved . Do not exceed 10 mg in 24 hours. ZOLMitripta 2020- No [id number] 2.5mg Take 1 [facility] n (Zomig) 05-[address] 2.5 MG 00:00: 00:00 (2.5 mg [facility]ospita tablet 00 :00 total) by l mouth once as needed for migraine. May repeat in 2 hours if unresolved . Do not exceed 10 mg in 24 hours. hydroCHLORO 2019-03- No [id number] 12.5mg QD Take 1 [facility] thiazide 1-10 11-[address] (HYDRODIURI 00:00: 05:59 (12.5 mg H [facility] L) 12.5 MG 00 :00 total) by l tablet mouth daily. hydroCHLORO 2019-03- No [id number] 12.5mg QD Take 1 [facility] thiazide 1-10 11-[address] (HYDRODIURI 00:00: 05:59 (12.5 mg H [facility] L) 12.5 MG 00 :00 total) by l tablet mouth daily. hydroCHLORO 2019-03- No [id number] 12.5mg QD Take 1 [facility] thiazide 1-10 11-[address] (HYDRODIURI 00:00: 05:59 (12.5 mg [facility] L) 12.5 MG 00 :00 total) by l tablet mouth daily. lisinopriL 2019-03- No [id number] 40mg QD Take 1 [facility] (PRINIVIL) 1-01 04- tablet (40 st 40 mg 00:00: 00:00 mg total) Hospit a tablet 00 :00 by mouth l daily. lisinopriL 2019-03- No [id number] 40mg QD Take 1 [facility] (PRINIVIL) 04-08 tablet (40 st 40 mg 00:00: 00:00 mg total) Hospit a tablet 00 :00 by mouth l daily. alendronate 2019-03- No [id number] TAKE ONE [facility] (FOSAMAX) 03-31 (1) st 70 MG 00:00: 00:00 TABLET(S) Hospit a tablet 00 :00 BY MOUTH l EVERY 7 DAYS. alendronate 2019-03- No [id number] TAKE ONE [facility] (FOSAMAX) 03-31 () st 70 MG 00:00: 00:00 TABLET(S) Hospit a tablet 00 :00 BY MOUTH l EVERY 7 DAYS. ergocalcife 2019-03- No [id number] Q7D Take 1 [facility] rol 0-01 12-[address] (VITAMIN 00:00: 04:59 (50,000 Hospi ta D2) 50,000 00 :00 Units l unit total) by capsule mouth once a week. ergocalcife 2019-03- No [id number] Q7D Take 1 [facility] rol 0-12-[address] (VITAMIN 00:00: 04:59 (50,000 Hospi ta D2) 50,000 00 :00 Units l unit total) by capsule mouth once a week. ergocalcife 2019-03- No [id number] Q7D Take 1 [facility] rol 0-01 12-[address] (VITAMIN 00:00: 04:59 (50,000 Hospi ta D2) 50,000 00 :00 Units l unit total) by capsule mouth once a week. linaCLOtide 2020-0 Yes [id number] 290ug QD Take 1 [facility] (Linzess) 6-[address] 290 mcg 00:00: (290 mcg Hospit a capsule 00 total) by l mouth daily before breakfast. linaCLOtide 2020-0 Yes [id number] 290ug QD Take 1 [facility] (Linzess) 6-[address] 290 mcg 00:00: (290 mcg Hospit a capsule 00 total) by l mouth daily before breakfast. linaCLOtide 2020-0 Yes [id number] 290ug QD Take 1 [facility] (Linzess) 6-[address] 290 mcg 00:00: (290 mcg Hospit a capsule 00 total) by l mouth daily before breakfast. linaCLOtide 2020-0 Yes [id number] 290ug QD Take 1 [facility] (Linzess) 6-[address] 290 mcg 00:00: (290 mcg Hospit a capsule 00 total) by l mouth daily before breakfast. linaCLOtide 2020-0 Yes [id number] 290ug QD Take 1 [facility] (Linzess) 6-[address] 290 mcg 00:00: (290 mcg Hospit a capsule 00 total) by l mouth daily before breakfast. linaCLOtide 2020-0 Yes [id number] 290ug QD Take 1 [facility] (Linzess) 6-[address] 290 mcg 00:00: (290 mcg Hospit a capsule 00 total) by l mouth daily before breakfast. albuterol 2020- No [id number] 2{puff} Q6H Inhale 2 [facility] (PROAIR 5-28 04-[address] HFA) 90 00:00: 00:00 every 6 Hospit a mcg/actuati 00 :00 (six) l on inhaler hours as needed for wheezing. albuterol 2020- No [id number] 2{puff} Q6H Inhale 2 [facility] (PROAIR 5-28 04-[address] HFA) 90 00:00: 00:00 every 6 Hospit a mcg/actuati 00 :00 (six) l on inhaler hours as needed for wheezing. blood sugar Yes [id number] Use to [facility] diagnostic 5-[address] strips 00:00: sugar [facility]osp[facility] (glucose 00 daily E l blood) 11.6 strip test strips blood-gluco Yes [id number] Use to [facility] se meter 5-[address] misc 00:00: sugar [facility]osp[facility] 00 daily E l 11.6 lancets 25 2019-0 Yes [id number] Use to M [facility] gauge misc 5-[address] 00:00: sugars [facility]ospita 00 daily E l 11.6 blood sugar 2019- Yes [id number] Use to [facility] diagnostic 5-[address] strips 00:00: sugar [facility]osp[facility] (glucose 00 daily E l blood) 11.6 strip test strips blood-gluco 2020-0 Yes [id number] Use to [facility] se meter 5-[address] misc 00:00: sugar [facility]osp[facility] 00 daily E l 11.6 lancets 25 2020-0 Yes [id number] Use to M [facility] gauge misc 5-[address] 00:00: sugars [facility]osp[facility] 00 daily E l 11.6 blood sugar 2020-0 Yes [id number] Use to [facility] diagnostic 5-[address] strips 00:00: sugar [facility] (glucose 00 daily E l blood) 11.6 strip test strips blood-gluco 2020-0 Yes [id number] Use to [facility] se meter 5-[address] misc 00:00: sugar [facility]osp[facility] 00 daily E l 11.6 lancets 25 2020-0 Yes [id number] Use to M geminiodi gauge misc 5-[address] 00:00: sugars [facility]osp[facility] 00 daily E l 11.6 blood sugar 2020-0 Yes [id number] Use to [facility] diagnostic 5-[address] strips 00:00: sugar [facility]osp[facility] (glucose 00 daily E l blood) 11.6 strip test strips blood-gluco 2020-0 Yes [id number] Use to [facility] se meter 5-[address] misc 00:00: sugar [facility]osp[facility] 00 daily E l 11.6 lancets 25 2020-0 Yes [id number] Use to M geminiodi karen misc 5-[address] 00:00: sugars [facility]osp[facility] 00 daily E l 11.6 blood sugar 2020-0 Yes [id number] Use to [facility] diagnostic 5-[address] strips 00:00: sugar [facility] (glucose 00 daily E l blood) 11.6 strip test strips blood-gluco 2020-0 Yes [id number] Use to [facility] se meter 5-[address] misc 00:00: sugar [facility]osp[facility] 00 daily E l 11.6 lancets 25 2020-0 Yes [id number] Use to M [facility] gauge misc 5-[address] 00:00: sugars [facility]osp[facility] 00 daily E l 11.6 blood sugar 2020-0 Yes [id number] Use to [facility] diagnostic 5-[address] strips 00:00: sugar [facility]osp[facility] (glucose 00 daily E l blood) 11.6 strip test strips blood-gluco 2020-0 Yes [id number] Use to [facility] se meter 5-[address] misc 00:00: sugar [facility]osp[facility] 00 daily E l 11.6 lancets 25 Yes [id number] Use to M [facility] gauge misc 5-[address] 00:00: sugars [facility]osp[facility] 00 daily E l 11.6 psyllium 2020- No [id number] .52g Q24H Take 1 [facility] (Metamucil) 08-17-[address] 0.52 gram 00:00: 00:00 (0.52 g [facility]osp [facility] capsule 00 :00 total) by l mouth daily as needed for constipati on. psyllium 2019-2020- No [id number] .52g Q24H Take 1 [facility] (Metamucil) 08-17 06-[address] 0.52 gram 00:00: 00:00 (0.52 g [facility]osp [facility] capsule 00 :00 total) by l mouth daily as needed for constipati on. nortriptyli 2020- No [id number] 10mg QD Take 1 [facility] ne 08-17 04-[address] (Pamelor) 00:00: 00:00 (10 mg Hospi ta 10 MG 00 :00 total) by l capsule mouth nightly. nortriptyli 2020- No [id number] 10mg QD Take 1 [facility] ne 08-17 04-[address] (Pamelor) 00:00: 00:00 (10 mg [...] cream 00 :00 for dry l skin. ammonium 2021- No Apply [facility] lactate 1-23 04-[address] (AMLACTIN) 00:00: 00:00 as needed H [facility]sp[facility] 12 % cream 00 :00 for dry l skin. SMOG Enema No Notes: Non M emoria 7-18 formulary l 14:52: item [place] 00 saline for irrigation (1L bottle) 100 mL, mineral oil 100 mL, glycerine 100 mL. Dispense (300 ml) in 1L NS bottle magnesium No Notes: Memori a citrate 7-18 (Same as: l 14:52: Citrate of [place] 00 Magnesia) SMOG Enema No Notes: Non M emoria 718 formulary l 14:52: item [place] 00 saline for irrigation (1L bottle) 100 mL, mineral oil 100 mL, glycerine 100 mL. Dispense (300 ml) in 1L NS bottle magnesium No Notes: [facility] a citrate 7-18 (Same as: l 14:52: Citrate of [place] 00 Magnesia) SMOG Enema No Notes: Non M emoria 18 formulary l 14:52: item [place] 00 saline for irrigation (1L bottle) 100 mL, mineral oil 100 mL, glycerine 100 mL. Dispense (300 ml) in 1L NS bottle magnesium No Notes: [facility] a citrate 7-18 (Same as: l 14:52: Citrate of [place] 00 Magnesia) SMOG Enema No Notes: Non M emoria 18 formulary l 14:52: item [place] 00 saline for irrigation (1L bottle) 100 mL, mineral oil 100 mL, glycerine 100 mL. Dispense (300 ml) in 1L NS bottle magnesium No Notes: [facility] a citrate 7-18 (Same as: l 14:52: Citrate of [place] 00 Magnesia) SMOG Enema No Notes: Non M emoria 7-18 formulary l 14:52: item [place] 00 saline for irrigation (1L bottle) 100 mL, mineral oil 100 mL, glycerine 100 mL. Dispense (300 ml) in 1L NS bottle magnesium No Notes: [facility] a citrate 7-18 (Same as: l 14:52: Citrate of [place] 00 Magnesia) SMOG Enema No Notes: Non M emoria 7-18 formulary l 14:52: item [place] 00 saline for irrigation (1L bottle) 100 mL, mineral oil 100 mL, glycerine 100 mL. Dispense (300 ml) in 1L NS bottle magnesium No Notes: [facility] a citrate 7-18 (Same as: l 14:52: Citrate of [place] 00 Magnesia) SMOG Enema No Notes: Non M emoria 718 formulary l 14:52: item [place] 00 saline for irrigation (1L bottle) 100 mL, mineral oil 100 mL, glycerine 100 mL. Dispense (300 ml) in 1L NS bottle magnesium No Notes: [facility] a citrate 7-18 (Same as: l 14:52: Citrate of [place] 00 Magnesia) SMOG Enema No Notes: Non M emoria 718 formulary l 14:52: item [place] 00 saline for irrigation (1L bottle) 100 mL, mineral oil 100 mL, glycerine 100 mL. Dispense (300 ml) in 1L NS bottle magnesium No Notes: [facility] a citrate 7-18 (Same as: l 14:52: Citrate of [place] 00 Magnesia) SMOG Enema No Notes: Non M emoria 718 formulary l 14:52: item [place] 00 saline for irrigation (1L bottle) 100 mL, mineral oil 100 mL, glycerine 100 mL. Dispense (300 ml) in 1L NS bottle magnesium No Notes: [facility] a citrate 7-18 (Same as: l 14:52: Citrate of [place] 00 Magnesia) SMOG Enema No Notes: Non M emoria 718 formulary l 14:52: item [place] 00 saline for irrigation (1L bottle) 100 mL, mineral oil 100 mL, glycerine 100 mL. Dispense (300 ml) in 1L NS bottle magnesium No Notes: [facility] a citrate 7-18 (Same as: l 14:52: Citrate of [place] 00 Magnesia) SMOG Enema No Notes: Non M emoria 7-18 formulary l 14:52: item [place] 00 saline for irrigation (1L bottle) 100 mL, mineral oil 100 mL, glycerine 100 mL. Dispense (300 ml) in 1L NS bottle magnesium No Notes: [facility] a citrate 7-18 (Same as: l 14:52: Citrate of [place] 00 Magnesia) SMOG Enema No Notes: Non M emoria 718 formulary l 14:52: item [place] 00 saline for irrigation (1L bottle) 100 mL, mineral oil 100 mL, glycerine 100 mL. Dispense (300 ml) in 1L NS bottle magnesium No Notes: [facility] a citrate 7-18 (Same as: l 14:52: Citrate of [place] 00 Magnesia) SMOG Enema No Notes: Non M emoria 18 formulary l 14:52: item [place] 00 saline for irrigation (1L bottle) 100 mL, mineral oil 100 mL, glycerine 100 mL. Dispense (300 ml) in 1L NS bottle magnesium No Notes: [facility] a citrate 7-18 (Same as: l 14:52: Citrate of [place] 00 Magnesia) SMOG Enema No Notes: Non M emoria 10-14 formulary l 14:52: item [place] 00 saline for irrigation (1L bottle) 100 mL, mineral oil 100 mL, glycerine 100 mL. Dispense (300 ml) in 1L NS bottle magnesium No Notes: [facility] a citrate 7-18 (Same as: l 14:52: Citrate of [place] 00 Magnesia) SMOG Enema No Notes: Non M emoria 18 formulary l 14:52: item [place] 00 saline for irrigation (1L bottle) 100 mL, mineral oil 100 mL, glycerine 100 mL. Dispense (300 ml) in 1L NS bottle magnesium No Notes: [facility] a citrate 7-18 (Same as: l 14:52: Citrate of [place] 00 Magnesia) SMOG Enema No Notes: Non M emoria 718 formulary l 14:52: item [place] 00 saline for irrigation (1L bottle) 100 mL, mineral oil 100 mL, glycerine 100 mL. Dispense (300 ml) in 1L NS bottle magnesium No Notes: [facility] a citrate 7-18 (Same as: l 14:52: Citrate of [place] 00 Magnesia) SMOG Enema No Notes: Non M emoria 718 formulary l 14:52: item [place] 00 saline for irrigation (1L bottle) 100 mL, mineral oil 100 mL, glycerine 100 mL. Dispense (300 ml) in 1L NS bottle magnesium No Notes: [facility] a citrate 7-18 (Same as: l 14:52: Citrate of [place] 00 Magnesia) SMOG Enema No Notes: Non M emoria 7-18 formulary l 14:52: item [place] 00 saline for irrigation (1L bottle) 100 mL, mineral oil 100 mL, glycerine 100 mL. Dispense (300 ml) in 1L NS bottle magnesium No Notes: Memori a citrate 7-18 (Same as: l 14:52: Citrate of [place] 00 [place]) SMOG Enema No Notes: Non M emoria 7-18 formulary l 14:52: item [place] 00 saline for irrigation (1L bottle) 100 mL, mineral oil 100 mL, glycerine 100 mL. Dispense (300 ml) in 1L NS bottle magnesium No Notes: Memori a citrate 7-18 (Same as: l 14:52: Citrate of [place] 00 [place]) SMOG Enema No Notes: Non M emoria 718 formulary l 14:52: item [place] 00 saline for irrigation (1L bottle) 100 mL, mineral oil 100 mL, glycerine 100 mL. Dispense (300 ml) in 1L NS bottle magnesium No Notes: Memori a citrate 7-18 (Same as: l 14:52: Citrate of [place] 00 [place]) SMOG Enema No Notes: Non M emoria 7-18 formulary l 14:52: item [place] 00 saline for irrigation (1L bottle) 100 mL, mineral oil 100 mL, glycerine 100 mL. Dispense (300 ml) in 1L NS bottle magnesium No Notes: Memori a citrate 7-18 (Same as: l 14:52: Citrate of [place] 00 [place]) SMOG Enema No Notes: Non M emoria 7-18 formulary l 14:52: item [place] 00 saline for irrigation (1L bottle) 100 mL, mineral oil 100 mL, glycerine 100 mL. Dispense (300 ml) in 1L NS bottle magnesium No Notes: Memori a citrate 7-18 (Same as: l 14:52: Citrate of [place] 00 Magnesia) SMOG Enema No Notes: Non M emoria 718 formulary l 14:52: item [place] 00 saline for irrigation (1L bottle) 100 mL, mineral oil 100 mL, glycerine 100 mL. Dispense (300 ml) in 1L NS bottle magnesium No Notes: Memori a citrate 7-18 (Same as: l 14:52: Citrate of [place] 00 Magnesia) SMOG Enema No Notes: Non M emoria 18 formulary l 14:52: item [place] 00 saline for irrigation (1L bottle) 100 mL, mineral oil 100 mL, glycerine 100 mL. Dispense (300 ml) in 1L NS bottle magnesium No Notes: Memori a citrate 7-18 (Same as: l 14:52: Citrate of [place] 00 Magnesia) SMOG Enema No Notes: Non M emoria 18 formulary l 14:52: item [place] 00 saline for irrigation (1L bottle) 100 mL, mineral oil 100 mL, glycerine 100 mL. Dispense (300 ml) in 1L NS bottle magnesium No Notes: Memori a citrate 7-18 (Same as: l 14:52: Citrate of [place] 00 Magnesia) SMOG Enema No Notes: Non M emoria 18 formulary l 14:52: item [place] 00 saline for irrigation (1L bottle) 100 mL, mineral oil 100 mL, glycerine 100 mL. Dispense (300 ml) in 1L NS bottle magnesium No Notes: Memori a citrate 7-18 (Same as: l 14:52: Citrate of [place] 00 Magnesia) SMOG Enema No Notes: Non M emoria 18 formulary l 14:52: item [place] 00 saline for irrigation (1L bottle) 100 mL, mineral oil 100 mL, glycerine 100 mL. Dispense (300 ml) in 1L NS bottle magnesium No Notes: Memori a citrate 7-18 (Same as: l 14:52: Citrate of [place] 00 Magnesia) SMOG Enema No Notes: Non M emoria 718 formulary l 14:52: item [place] 00 saline for irrigation (1L bottle) 100 mL, mineral oil 100 mL, glycerine 100 mL. Dispense (300 ml) in 1L NS bottle magnesium No Notes: Memori a citrate 7-18 (Same as: l 14:52: Citrate of [place] 00 Magnesia) SMOG Enema No Notes: Non M emoria 718 formulary l 14:52: item [place] 00 saline for irrigation (1L bottle) 100 mL, mineral oil 100 mL, glycerine 100 mL. Dispense (300 ml) in 1L NS bottle magnesium No Notes: Memori a citrate 7-18 (Same as: l 14:52: Citrate of [place] 00 Magnesia) SMOG Enema No Notes: Non M emoria 18 formulary l 14:52: item [place] 00 saline for irrigation (1L bottle) 100 mL, mineral oil 100 mL, glycerine 100 mL. Dispense (300 ml) in 1L NS bottle magnesium No Notes: Memori a citrate 7-18 (Same as: l 14:52: Citrate of [place] 00 Magnesia) SMOG Enema No Notes: Non M emoria 18 formulary l 14:52: item [place] 00 saline for irrigation (1L bottle) 100 mL, mineral oil 100 mL, glycerine 100 mL. Dispense (300 ml) in 1L NS bottle magnesium No Notes: Memori a citrate 7-18 (Same as: l 14:52: Citrate of [place] 00 Magnesia) SMOG Enema No Notes: Non M emoria 718 formulary l 14:52: item [place] 00 saline for irrigation (1L bottle) 100 mL, mineral oil 100 mL, glycerine 100 mL. Dispense (300 ml) in 1L NS bottle magnesium No Notes: Memori a citrate 7-18 (Same as: l 14:52: Citrate of [place] 00 Magnesia) SMOG Enema No Notes: Non M emoria 7-18 formulary l 14:52: item [place] 00 saline for irrigation (1L bottle) 100 mL, mineral oil 100 mL, glycerine 100 mL. Dispense (300 ml) in 1L NS bottle magnesium No Notes: Memori a citrate 7-18 (Same as: l 14:52: Citrate of [place] 00 Magnesia) SMOG Enema No Notes: Non M emoria 7-18 formulary l 14:52: item [place] 00 saline for irrigation (1L bottle) 100 mL, mineral oil 100 mL, glycerine 100 mL. Dispense (300 ml) in 1L NS bottle magnesium No Notes: Memori a citrate 7-18 (Same as: l 14:52: Citrate of [place] 00 Magnesia) SMOG Enema No Notes: Non M emoria 7-18 formulary l 14:52: item [place] 00 saline for irrigation (1L bottle) 100 mL, mineral oil 100 mL, glycerine 100 mL. Dispense (300 ml) in 1L NS bottle magnesium No Notes: Memori a citrate 7-18 (Same as: l 14:52: Citrate of [place] 00 Magnesia) SMOG Enema No Notes: Non M emoria 7-18 formulary l 14:52: item [place] 00 saline for irrigation (1L bottle) 100 mL, mineral oil 100 mL, glycerine 100 mL. Dispense (300 ml) in 1L NS bottle magnesium No Notes: Memori a citrate 7-18 (Same as: l 14:52: Citrate of [place] 00 Magnesia) SMOG Enema No Notes: Non M emoria 7-18 formulary l 14:52: item [place] 00 saline for irrigation (1L bottle) 100 mL, mineral oil 100 mL, glycerine 100 mL. Dispense (300 ml) in 1L NS bottle magnesium No Notes: Memori a citrate 7-18 (Same as: l 14:52: Citrate of [place] 00 Magnesia) SMOG Enema No Notes: Non M emoria 7-18 formulary l 14:52: item [place] 00 saline for irrigation (1L bottle) 100 mL, mineral oil 100 mL, glycerine 100 mL. Dispense (300 ml) in 1L NS bottle magnesium No Notes: Memori a citrate 7-18 (Same as: l 14:52: Citrate of [place] 00 Magnesia) SMOG Enema No Notes: Non M emoria 7-18 formulary l 14:52: item [place] 00 saline for irrigation (1L bottle) 100 mL, mineral oil 100 mL, glycerine 100 mL. Dispense (300 ml) in 1L NS bottle magnesium No Notes: Memori a citrate 7-18 (Same as: l 14:52: Citrate of [place] 00 Magnesia) SMOG Enema No Notes: Non M emoria 7-18 formulary l 14:52: item [place] 00 saline for irrigation (1L bottle) 100 mL, mineral oil 100 mL, glycerine 100 mL. Dispense (300 ml) in 1L NS bottle magnesium No Notes: Memori a citrate 7-18 (Same as: l 14:52: Citrate of [place] 00 Magn[place]ia) SMOG Enema No Notes: Non M emoria 7-18 formulary l 14:52: item [place] 00 saline for irrigation (1L bottle) 100 mL, mineral oil 100 mL, glycerine 100 mL. Dispense (300 ml) in 1L NS bottle magnesium No Notes: Memori a citrate 7-18 (Same as: l 14:52: Citrate of [place] 00 Magnesia) SMOG Enema No Notes: Non M emoria 718 formulary l 14:52: item [place] 00 saline for irrigation (1L bottle) 100 mL, mineral oil 100 mL, glycerine 100 mL. Dispense (300 ml) in 1L NS bottle magnesium No Notes: Memori a citrate 7-18 (Same as: l 14:52: Citrate of [place] 00 Magn[place]ia) SMOG Enema No Notes: Non M emoria 7-18 formulary l 14:52: item [place] 00 saline for irrigation (1L bottle) 100 mL, mineral oil 100 mL, glycerine 100 mL. Dispense (300 ml) in 1L NS bottle magnesium No Notes: Memori a citrate 7-18 (Same as: l 14:52: Citrate of [place] 00 Magn[place]ia) SMOG Enema No Notes: Non M emoria 7-18 formulary l 14:52: item [place] 00 saline for irrigation (1L bottle) 100 mL, mineral oil 100 mL, glycerine 100 mL. Dispense (300 ml) in 1L NS bottle SMOG Enema No Notes: Non M emoria 7-18 formulary l 14:52: item [place] 00 saline for irrigation (1L bottle) 100 mL, mineral oil 100 mL, glycerine 100 mL. Dispense (300 ml) in 1L NS bottle magnesium No Notes: Memori a citrate 7-18 (Same as: l 14:52: Citrate of [place] 00 Magnesia) magnesium No Notes: Memori a citrate 7-18 (Same as: l 14:52: Citrate of [place] 00 Magnesia) SMOG Enema No Notes: Non M emoria 18 formulary l 14:52: item [place] 00 saline for irrigation (1L bottle) 100 mL, mineral oil 100 mL, glycerine 100 mL. Dispense (300 ml) in 1L NS bottle magnesium No Notes: Memori a citrate 7-18 (Same as: l 14:52: Citrate of [place] Magnesia) carvedilol Yes 12.5 mg = Me moria 12.5 mg 7-18 1 tab, PO, l oral tablet 14:47: BID, # 60 H [place] 00 tab, 0 Refill(s) methocarbam Yes 500 mg = 1 Memoria ol 500 mg 7-18 tab, PO, l oral tablet 14:47: Q8H, PRN [place] 00 Muscle Spasms, X 7 day, # 21 tab, 0 Refill(s) pregabalin Yes 100 mg = 1 M emoria 100 mg oral 7-18 cap, PO, l capsule 14:47: Q8Hnow, # Ly nn 00 90 cap, 0 Refill(s) POLYETHYLEN Yes 17 gm, PO, Memoria E GLYCOL 7-18 Daily, X l 3350 142 14:47: 15 day, # Herm adriana MG/ML Oral 00 255 gm, 0 Solution Refill(s) [Miralax] Metformin Yes 500 mg = 1 Me moria hydrochlori 7-18 tab, PO, l de 500 MG 14:47: BID, # 60 Her [place] Oral Tablet 00 tab, 0 Refill(s) oxyCODONE 5 Yes 5 mg = 1 Me moria mg oral 7-18 tab, PO, l tablet 14:47: Q6H, PRN [place] 00 Pain Score 4-6, X 7 day, # 28 tab, 0 Refill(s) carvedilol Yes 12.5 mg = Me moria 12.5 mg 7-18 1 tab, PO, l oral tablet 14:47: BID, # 60 H [place] 00 tab, 0 Refill(s) methocarbam Yes 500 mg = 1 Memoria ol 500 mg 7-18 tab, PO, l oral tablet 14:47: Q8H, PRN [place] 00 Muscle Spasms, X 7 day, # 21 tab, 0 Refill(s) pregabalin Yes 100 mg = 1 M emoria 100 mg oral 7-18 cap, PO, l capsule 14:47: Q8Hnow, # Ly nn 00 90 cap, 0 Refill(s) POLYETHYLEN Yes 17 gm, PO, Memoria E GLYCOL 7-18 Daily, X l 3350 142 14:47: 15 day, # Herm adriana MG/ML Oral 00 255 gm, 0 Solution Refill(s) [Miralax] Metformin Yes 500 mg = 1 Me moria hydrochlori 7-18 tab, PO, l de 500 MG 14:47: BID, # 60 Her [place] Oral Tablet 00 tab, 0 Refill(s) oxyCODONE 5 Yes 5 mg = 1 Me moria mg oral 7-18 tab, PO, l tablet 14:47: Q6H, PRN [place] 00 Pain Score 4-6, X 7 day, # 28 tab, 0 Refill(s) carvedilol Yes 12.5 mg = Me moria 12.5 mg 7-18 1 tab, PO, l oral tablet 14:47: BID, # 60 [place] 00 tab, 0 Refill(s) methocarbam 0 Yes 500 mg = 1 Memoria ol 500 mg 7-18 tab, PO, l oral tablet 14:47: Q8H, PRN [place] 00 Muscle Spasms, X 7 day, # 21 tab, 0 Refill(s) pregabalin 0 Yes 100 mg = 1 M emoria 100 mg oral 7-18 cap, PO, l capsule 14:47: Q8Hnow, # Ly nn 00 90 cap, 0 Refill(s) POLYETHYLEN 2015-0 Yes 17 gm, PO, Memoria E GLYCOL 7-18 Daily, X l 3350 142 14:47: 15 day, # Herm adriana MG/ML Oral 00 255 gm, 0 Solution Refill(s) [Miralax] Metformin Yes 500 mg = 1 Me moria hydrochlori 7-18 tab, PO, l de 500 MG 14:47: BID, # 60 Her [place] Oral Tablet 00 tab, 0 Refill(s) oxyCODONE 5 Yes 5 mg = 1 Me moria mg oral 7-18 tab, PO, l tablet 14:47: Q6H, PRN [place] 00 Pain Score 4-6, X 7 day, # 28 tab, 0 Refill(s) carvedilol Yes 12.5 mg = Me moria 12.5 mg 7-18 1 tab, PO, l oral tablet 14:47: BID, # 60 [place] 00 tab, 0 Refill(s) methocarbam Yes 500 mg = 1 Memoria ol 500 mg 7-18 tab, PO, l oral tablet 14:47: Q8H, PRN [place] 00 Muscle Spasms, X 7 day, # 21 tab, 0 Refill(s) pregabalin Yes 100 mg = 1 M emoria 100 mg oral 7-18 cap, PO, l capsule 14:47: Q8Hnow, # Ly nn 00 90 cap, 0 Refill(s) POLYETHYLEN Yes 17 gm, PO, Memoria E GLYCOL 7-18 Daily, X l 3350 142 14:47: 15 day, # Herm adriana MG/ML Oral 00 255 gm, 0 Solution Refill(s) [Miralax] Metformin Yes 500 mg = 1 Me moria hydrochlori 7-18 tab, PO, l de 500 MG 14:47: BID, # 60 Her [place] Oral Tablet 00 tab, 0 Refill(s) oxyCODONE 5 Yes 5 mg = 1 Me moria mg oral 7-18 tab, PO, l tablet 14:47: Q6H, PRN [place] 00 Pain Score 4-6, X 7 day, # 28 tab, 0 Refill(s) carvedilol Yes 12.5 mg = Me moria 12.5 mg 7-18 1 tab, PO, l oral tablet 14:47: BID, # 60 [place] 00 tab, 0 Refill(s) methocarbam 2016-0 Yes 500 mg = 1 Memoria ol 500 mg 7-18 tab, PO, l oral tablet 14:47: Q8H, PRN [place] 00 Muscle Spasms, X 7 day, # 21 tab, 0 Refill(s) pregabalin 0 Yes 100 mg = 1 M emoria 100 mg oral 7-18 cap, PO, l capsule 14:47: Q8Hnow, # Ly nn 00 90 cap, 0 Refill(s) POLYETHYLEN 2016-0 Yes 17 gm, PO, Memoria E GLYCOL 7-18 Daily, X l 3350 142 14:47: 15 day, # Herm adriana MG/ML Oral 00 255 gm, 0 Solution Refill(s) [Miralax] Metformin 0 Yes 500 mg = 1 Me moria hydrochlori 7-18 tab, PO, l de 500 MG 14:47: BID, # 60 Her [place] Oral Tablet 00 tab, 0 Refill(s) oxyCODONE 5 Yes 5 mg = 1 Me moria mg oral 7-18 tab, PO, l tablet 14:47: Q6H, PRN [place] 00 Pain Score 4-6, X 7 day, # 28 tab, 0 Refill(s) carvedilol Yes 12.5 mg = Me moria 12.5 mg 7-18 1 tab, PO, l oral tablet 14:47: BID, # 60 [place] 00 tab, 0 Refill(s) methocarbam 0 Yes 500 mg = 1 Memoria ol 500 mg 7-18 tab, PO, l oral tablet 14:47: Q8H, PRN [place] 00 Muscle Spasms, X 7 day, # 21 tab, 0 Refill(s) pregabalin 20160 Yes 100 mg = 1 M emoria 100 mg oral 7-18 cap, PO, l capsule 14:47: Q8Hnow, # Ly nn 00 90 cap, 0 Refill(s) POLYETHYLEN 2016-0 Yes 17 gm, PO, Memoria E GLYCOL 7-18 Daily, X l 3350 142 14:47: 15 day, # Herm adriana MG/ML Oral 00 255 gm, 0 Solution Refill(s) [Miralax] Metformin 0 Yes 500 mg = 1 Me moria hydrochlori 7-18 tab, PO, l de 500 MG 14:47: BID, # 60 Her [place] Oral Tablet 00 tab, 0 Refill(s) oxyCODONE 5 Yes 5 mg = 1 Me moria mg oral 7-18 tab, PO, l tablet 14:47: Q6H, PRN [place] 00 Pain Score 4-6, X 7 day, # 28 tab, 0 Refill(s) carvedilol Yes 12.5 mg = Me moria 12.5 mg 7-18 1 tab, PO, l oral tablet 14:47: BID, # 60 [place] 00 tab, 0 Refill(s) methocarbam Yes 500 mg = 1 Memoria ol 500 mg 7-18 tab, PO, l oral tablet 14:47: Q8H, PRN [place] 00 Muscle Spasms, X 7 day, # 21 tab, 0 Refill(s) pregabalin Yes 100 mg = 1 M emoria 100 mg oral 7-18 cap, PO, l capsule 14:47: Q8Hnow, # Ly nn 00 90 cap, 0 Refill(s) POLYETHYLEN Yes 17 gm, PO, Memoria E GLYCOL 7-18 Daily, X l 3350 142 14:47: 15 day, # Herm adriana MG/ML Oral 00 255 gm, 0 Solution Refill(s) [Miralax] Metformin Yes 500 mg = 1 Me moria hydrochlori 7-18 tab, PO, l de 500 MG 14:47: BID, # 60 Her [place] Oral Tablet 00 tab, 0 Refill(s) oxyCODONE 5 Yes 5 mg = 1 Me moria mg oral 7-18 tab, PO, l tablet 14:47: Q6H, PRN [place] 00 Pain Score 4-6, X 7 day, # 28 tab, 0 Refill(s) carvedilol Yes 12.5 mg = Me moria 12.5 mg 7-18 1 tab, PO, l oral tablet 14:47: BID, # 60 [place] 00 tab, 0 Refill(s) methocarbam Yes 500 mg = 1 Memoria ol 500 mg 7-18 tab, PO, l oral tablet 14:47: Q8H, PRN [place] 00 Muscle Spasms, X 7 day, # 21 tab, 0 Refill(s) pregabalin 2016- Yes 100 mg = 1 M emoria 100 mg oral 7-18 cap, PO, l capsule 14:47: Q8Hnow, # Ly nn 00 90 cap, 0 Refill(s) POLYETHYLEN 2015-0 Yes 17 gm, PO, Memoria E GLYCOL 7-18 Daily, X l 3350 142 14:47: 15 day, # Herm adriana MG/ML Oral 00 255 gm, 0 Solution Refill(s) [Miralax] Metformin Yes 500 mg = 1 Me moria hydrochlori 7-18 tab, PO, l de 500 MG 14:47: BID, # 60 Her [place] Oral Tablet 00 tab, 0 Refill(s) oxyCODONE 5 0 Yes 5 mg = 1 Me moria mg oral 7-18 tab, PO, l tablet 14:47: Q6H, PRN [place] 00 Pain Score 4-6, X 7 day, # 28 tab, 0 Refill(s) carvedilol Yes 12.5 mg = Me moria 12.5 mg 7-18 1 tab, PO, l oral tablet 14:47: BID, # 60 [place] 00 tab, 0 Refill(s) methocarbam Yes 500 mg = 1 Memoria ol 500 mg 7-18 tab, PO, l oral tablet 14:47: Q8H, PRN [place] 00 Muscle Spasms, X 7 day, # 21 tab, 0 Refill(s) pregabalin 20160 Yes 100 mg = 1 M emoria 100 mg oral 7-18 cap, PO, l capsule 14:47: Q8Hnow, # Ly nn 00 90 cap, 0 Refill(s) POLYETHYLEN 2016-0 Yes 17 gm, PO, Memoria E GLYCOL 7-18 Daily, X l 3350 142 14:47: 15 day, # Herm adriana MG/ML Oral 00 255 gm, 0 Solution Refill(s) [Miralax] Metformin 0 Yes 500 mg = 1 Me moria hydrochlori 7-18 tab, PO, l de 500 MG 14:47: BID, # 60 Her [place] Oral Tablet 00 tab, 0 Refill(s) oxyCODONE 5 0 Yes 5 mg = 1 Me moria mg oral 7-18 tab, PO, l tablet 14:47: Q6H, PRN [place] 00 Pain Score 4-6, X 7 day, # 28 tab, 0 Refill(s) carvedilol 2016-0 Yes 12.5 mg = Me moria 12.5 mg 7-18 1 tab, PO, l oral tablet 14:47: BID, # 60 [place] 00 tab, 0 Refill(s) methocarbam 2016-0 Yes 500 mg = 1 Memoria ol 500 mg 7-18 tab, PO, l oral tablet 14:47: Q8H, PRN [place] 00 Muscle Spasms, X 7 day, # 21 tab, 0 Refill(s) pregabalin 2016-0 Yes 100 mg = 1 M emoria 100 mg oral 7-18 cap, PO, l capsule 14:47: Q8Hnow, # Ly nn 00 90 cap, 0 Refill(s) POLYETHYLEN 2016-0 Yes 17 gm, PO, Memoria E GLYCOL 7-18 Daily, X l 3350 142 14:47: 15 day, # Herm adriana MG/ML Oral 00 255 gm, 0 Solution Refill(s) [Miralax] Metformin 2016-0 Yes 500 mg = 1 Me moria hydrochlori 7-18 tab, PO, l de 500 MG 14:47: BID, # 60 Her [place] Oral Tablet 00 tab, 0 Refill(s) oxyCODONE 5 20160 Yes 5 mg = 1 Me moria mg oral 7-18 tab, PO, l tablet 14:47: Q6H, PRN [place] 00 Pain Score 4-6, X 7 day, # 28 tab, 0 Refill(s) carvedilol 2016-0 Yes 12.5 mg = Me moria 12.5 mg 7-18 1 tab, PO, l oral tablet 14:47: BID, # 60 [place] 00 tab, 0 Refill(s) methocarbam 2016-0 Yes 500 mg = 1 Memoria ol 500 mg 7-18 tab, PO, l oral tablet 14:47: Q8H, PRN [place] 00 Muscle Spasms, X 7 day, # 21 tab, 0 Refill(s) pregabalin 2016-0 Yes 100 mg = 1 M emoria 100 mg oral 7-18 cap, PO, l capsule 14:47: Q8Hnow, # Ly nn 00 90 cap, 0 Refill(s) POLYETHYLEN Yes 17 gm, PO, Memoria E GLYCOL 7-18 Daily, X l 3350 142 14:47: 15 day, # Herm adriana MG/ML Oral 00 255 gm, 0 Solution Refill(s) [Miralax] Metformin Yes 500 mg = 1 Me moria hydrochlori 7-18 tab, PO, l de 500 MG 14:47: BID, # 60 Her [place] Oral Tablet 00 tab, 0 Refill(s) oxyCODONE 5 Yes 5 mg = 1 Me moria mg oral 7-18 tab, PO, l tablet 14:47: Q6H, PRN [place] 00 Pain Score 4-6, X 7 day, # 28 tab, 0 Refill(s) carvedilol Yes 12.5 mg = Me moria 12.5 mg 7-18 1 tab, PO, l oral tablet 14:47: BID, # 60 [place] 00 tab, 0 Refill(s) methocarbam Yes 500 mg = 1 Memoria ol 500 mg 7-18 tab, PO, l oral tablet 14:47: Q8H, PRN [place] 00 Muscle Spasms, X 7 day, # 21 tab, 0 Refill(s) pregabalin Yes 100 mg = 1 M emoria 100 mg oral 7-18 cap, PO, l capsule 14:47: Q8Hnow, # Ly nn 00 90 cap, 0 Refill(s) POLYETHYLEN Yes 17 gm, PO, Memoria E GLYCOL 7-18 Daily, X l 3350 142 14:47: 15 day, # Herm adriana MG/ML Oral 00 255 gm, 0 Solution Refill(s) [Miralax] Metformin Yes 500 mg = 1 Me moria hydrochlori 7-18 tab, PO, l de 500 MG 14:47: BID, # 60 Her [place] Oral Tablet 00 tab, 0 Refill(s) oxyCODONE 5 Yes 5 mg = 1 Me moria mg oral 7-18 tab, PO, l tablet 14:47: Q6H, PRN [place] 00 Pain Score 4-6, X 7 day, # 28 tab, 0 Refill(s) carvedilol 2016 Yes 12.5 mg = Me moria 12.5 mg 7-18 1 tab, PO, l oral tablet 14:47: BID, # 60 [place] 00 tab, 0 Refill(s) methocarbam 0 Yes 500 mg = 1 Memoria ol 500 mg 7-18 tab, PO, l oral tablet 14:47: Q8H, PRN [place] 00 Muscle Spasms, X 7 day, # 21 tab, 0 Refill(s) pregabalin 0 Yes 100 mg = 1 M emoria 100 mg oral 7-18 cap, PO, l capsule 14:47: Q8Hnow, # Ly nn 00 90 cap, 0 Refill(s) POLYETHYLEN 0 Yes 17 gm, PO, Memoria E GLYCOL 7-18 Daily, X l 3350 142 14:47: 15 day, # Herm adriana MG/ML Oral 00 255 gm, 0 Solution Refill(s) [Miralax] Metformin Yes 500 mg = 1 Me moria hydrochlori 7-18 tab, PO, l de 500 MG 14:47: BID, # 60 Her [place] Oral Tablet 00 tab, 0 Refill(s) oxyCODONE 5 Yes 5 mg = 1 Me moria mg oral 7-18 tab, PO, l tablet 14:47: Q6H, PRN [place] 00 Pain Score 4-6, X 7 day, # 28 tab, 0 Refill(s) carvedilol 0 Yes 12.5 mg = Me moria 12.5 mg 7-18 1 tab, PO, l oral tablet 14:47: BID, # 60 [place] 00 tab, 0 Refill(s) methocarbam 20160 Yes 500 mg = 1 Memoria ol 500 mg 7-18 tab, PO, l oral tablet 14:47: Q8H, PRN [place] 00 Muscle Spasms, X 7 day, # 21 tab, 0 Refill(s) pregabalin 0 Yes 100 mg = 1 M emoria 100 mg oral 7-18 cap, PO, l capsule 14:47: Q8Hnow, # Ly nn 00 90 cap, 0 Refill(s) POLYETHYLEN 0 Yes 17 gm, PO, Memoria E GLYCOL 7-18 Daily, X l 3350 142 14:47: 15 day, # Herm adriana MG/ML Oral 00 255 gm, 0 Solution Refill(s) [Miralax] Metformin Yes 500 mg = 1 Me moria hydrochlori 7-18 tab, PO, l de 500 MG 14:47: BID, # 60 Her [place] Oral Tablet 00 tab, 0 Refill(s) oxyCODONE 5 Yes 5 mg = 1 Me moria mg oral 7-18 tab, PO, l tablet 14:47: Q6H, PRN [place] 00 Pain Score 4-6, X 7 day, # 28 tab, 0 Refill(s) carvedilol Yes 12.5 mg = Me moria 12.5 mg 7-18 1 tab, PO, l oral tablet 14:47: BID, # 60 [place] 00 tab, 0 Refill(s) methocarbam Yes 500 mg = 1 Memoria ol 500 mg 7-18 tab, PO, l oral tablet 14:47: Q8H, PRN rmann 00 Muscle Spasms, X 7 day, # 21 tab, 0 Refill(s) pregabalin Yes 100 mg = 1 M emoria 100 mg oral 7-18 cap, PO, l capsule 14:47: Q8Hnow, # Ly nn 00 90 cap, 0 Refill(s) POLYETHYLEN Yes 17 gm, PO, Memoria E GLYCOL 7-18 Daily, X l 3350 142 14:47: 15 day, # Herm adriana MG/ML Oral 00 255 gm, 0 Solution Refill(s) [Miralax] Metformin Yes 500 mg = 1 Me moria hydrochlori 7-18 tab, PO, l de 500 MG 14:47: BID, # 60 Her [place] Oral Tablet 00 tab, 0 Refill(s) oxyCODONE 5 0 Yes 5 mg = 1 Me moria mg oral 7-18 tab, PO, l tablet 14:47: Q6H, PRN [place] 00 Pain Score 4-6, X 7 day, # 28 tab, 0 Refill(s) carvedilol Yes 12.5 mg = Me moria 12.5 mg 7-18 1 tab, PO, l oral tablet 14:47: BID, # 60 [place] 00 tab, 0 Refill(s) methocarbam 2016-0 Yes 500 mg = 1 Memoria ol 500 mg 7-18 tab, PO, l oral tablet 14:47: Q8H, PRN [place] 00 Muscle Spasms, X 7 day, # 21 tab, 0 Refill(s) pregabalin 2016-0 Yes 100 mg = 1 M emoria 100 mg oral 7-18 cap, PO, l capsule 14:47: Q8Hnow, # Ly nn 00 90 cap, 0 Refill(s) POLYETHYLEN 2016-0 Yes 17 gm, PO, Memoria E GLYCOL 7-18 Daily, X l 3350 142 14:47: 15 day, # Herm adriana MG/ML Oral 00 255 gm, 0 Solution Refill(s) [Miralax] Metformin 0 Yes 500 mg = 1 Me moria hydrochlori 7-18 tab, PO, l de 500 MG 14:47: BID, # 60 Her gr[place] Oral Tablet 00 tab, 0 Refill(s) oxyCODONE 5 20160 Yes 5 mg = 1 Me moria mg oral 7-18 tab, PO, l tablet 14:47: Q6H, PRN [place] 00 Pain Score 4-6, X 7 day, # 28 tab, 0 Refill(s) carvedilol 20160 Yes 12.5 mg = Me moria 12.5 mg 7-18 1 tab, PO, l oral tablet 14:47: BID, # 60 H [place] 00 tab, 0 Refill(s) methocarbam 2016-0 Yes 500 mg = 1 Memoria ol 500 mg 7-18 tab, PO, l oral tablet 14:47: Q8H, PRN [place] 00 Muscle Spasms, X 7 day, # 21 tab, 0 Refill(s) pregabalin 2016-0 Yes 100 mg = 1 M emoria 100 mg oral 7-18 cap, PO, l capsule 14:47: Q8Hnow, # Ly nn 00 90 cap, 0 Refill(s) POLYETHYLEN 2016-0 Yes 17 gm, PO, Memoria E GLYCOL 7-18 Daily, X l 3350 142 14:47: 15 day, # Herm adriana MG/ML Oral 00 255 gm, 0 Solution Refill(s) [Miralax] Metformin Yes 500 mg = 1 Me moria hydrochlori 7-18 tab, PO, l de 500 MG 14:47: BID, # 60 Her gr[place] Oral Tablet 00 tab, 0 Refill(s) oxyCODONE 5 Yes 5 mg = 1 Me moria mg oral 7-18 tab, PO, l tablet 14:47: Q6H, PRN [place] 00 Pain Score 4-6, X 7 day, # 28 tab, 0 Refill(s) carvedilol Yes 12.5 mg = Me moria 12.5 mg 7-18 1 tab, PO, l oral tablet 14:47: BID, # 60 H [place] 00 tab, 0 Refill(s) methocarbam Yes 500 mg = 1 Memoria ol 500 mg 7-18 tab, PO, l oral tablet 14:47: Q8H, PRN [place] 00 Muscle Spasms, X 7 day, # 21 tab, 0 Refill(s) pregabalin Yes 100 mg = 1 M emoria 100 mg oral 7-18 cap, PO, l capsule 14:47: Q8Hnow, # Ly nn 00 90 cap, 0 Refill(s) POLYETHYLEN Yes 17 gm, PO, Memoria E GLYCOL 7-18 Daily, X l 3350 142 14:47: 15 day, # Herm adriana MG/ML Oral 00 255 gm, 0 Solution Refill(s) [Miralax] Metformin Yes 500 mg = 1 Me moria hydrochlori 7-18 tab, PO, l de 500 MG 14:47: BID, # 60 Her gr[place] Oral Tablet 00 tab, 0 Refill(s) oxyCODONE 5 Yes 5 mg = 1 Me moria mg oral 7-18 tab, PO, l tablet 14:47: Q6H, PRN [place] 00 Pain Score 4-6, X 7 day, # 28 tab, 0 Refill(s) carvedilol Yes 12.5 mg = Me moria 12.5 mg 7-18 1 tab, PO, l oral tablet 14:47: BID, # 60 H [place] 00 tab, 0 Refill(s) methocarbam Yes 500 mg = 1 Memoria ol 500 mg 7-18 tab, PO, l oral tablet 14:47: Q8H, PRN [place] 00 Muscle Spasms, X 7 day, # 21 tab, 0 Refill(s) pregabalin 2015-0 Yes 100 mg = 1 M emoria 100 mg oral 7-18 cap, PO, l capsule 14:47: Q8Hnow, # Ly nn 00 90 cap, 0 Refill(s) POLYETHYLEN 2016-0 Yes 17 gm, PO, Memoria E GLYCOL 7-18 Daily, X l 3350 142 14:47: 15 day, # Herm adriana MG/ML Oral 00 255 gm, 0 Solution Refill(s) [Miralax] Metformin 2015-0 Yes 500 mg = 1 Me moria hydrochlori 7-18 tab, PO, l de 500 MG 14:47: BID, # 60 Her grigs[place] Oral Tablet 00 tab, 0 Refill(s) oxyCODONE 5 Yes 5 mg = 1 Me moria mg oral 7-18 tab, PO, l tablet 14:47: Q6H, PRN [place] 00 Pain Score 4-6, X 7 day, # 28 tab, 0 Refill(s) carvedilol Yes 12.5 mg = Me moria 12.5 mg 7-18 1 tab, PO, l oral tablet 14:47: BID, # 60 H ermann 00 tab, 0 Refill(s) methocarbam 0 Yes 500 mg = 1 Memoria ol 500 mg 7-18 tab, PO, l oral tablet 14:47: Q8H, PRN He rmann 00 Muscle Spasms, X 7 day, # 21 tab, 0 Refill(s) pregabalin 2016-0 Yes 100 mg = 1 M emoria 100 mg oral 7-18 cap, PO, l capsule 14:47: Q8Hnow, # Ly nn 00 90 cap, 0 Refill(s) POLYETHYLEN 2016-0 Yes 17 gm, PO, Memoria E GLYCOL 7-18 Daily, X l 3350 142 14:47: 15 day, # Herm adriana MG/ML Oral 00 255 gm, 0 Solution Refill(s) [Miralax] Metformin 2015-0 Yes 500 mg = 1 Me moria hydrochlori 7-18 tab, PO, l de 500 MG 14:47: BID, # 60 Her grigs[place] Oral Tablet 00 tab, 0 Refill(s) oxyCODONE 5 Yes 5 mg = 1 Me moria mg oral 7-18 tab, PO, l tablet 14:47: Q6H, PRN [place] 00 Pain Score 4-6, X 7 day, # 28 tab, 0 Refill(s) carvedilol Yes 12.5 mg = Me moria 12.5 mg 7-18 1 tab, PO, l oral tablet 14:47: BID, # 60 H ermann 00 tab, 0 Refill(s) methocarbam Yes 500 mg = 1 Memoria ol 500 mg 7-18 tab, PO, l oral tablet 14:47: Q8H, PRN rmann 00 Muscle Spasms, X 7 day, # 21 tab, 0 Refill(s) pregabalin Yes 100 mg = 1 M emoria 100 mg oral 7-18 cap, PO, l capsule 14:47: Q8Hnow, # Ly nn 00 90 cap, 0 Refill(s) POLYETHYLEN Yes 17 gm, PO, Memoria E GLYCOL 7-18 Daily, X l 3350 142 14:47: 15 day, # Herm adriana MG/ML Oral 00 255 gm, 0 Solution Refill(s) [Miralax] Metformin Yes 500 mg = 1 Me moria hydrochlori 7-18 tab, PO, l de 500 MG 14:47: BID, # 60 Her grigsby Oral Tablet 00 tab, 0 Refill(s) oxyCODONE 5 Yes 5 mg = 1 Me moria mg oral 7-18 tab, PO, l tablet 14:47: Q6H, PRN [place] 00 Pain Score 4-6, X 7 day, # 28 tab, 0 Refill(s) carvedilol Yes 12.5 mg = Me moria 12.5 mg 7-18 1 tab, PO, l oral tablet 14:47: BID, # 60 H ermann 00 tab, 0 Refill(s) carvedilol Yes 12.5 mg = Me moria 12.5 mg 7-18 1 tab, PO, l oral tablet 14:47: BID, # 60 H ermann 00 tab, 0 Refill(s) methocarbam Yes 500 mg = 1 Memoria ol 500 mg 7-18 tab, PO, l oral tablet 14:47: Q8H, PRN He rmann 00 Muscle Spasms, X 7 day, # 21 tab, 0 Refill(s) pregabalin Yes 100 mg = 1 M emoria 100 mg oral 7-18 cap, PO, l capsule 14:47: Q8Hnow, # Ly nn 00 90 cap, 0 Refill(s) POLYETHYLEN Yes 17 gm, PO, Memoria E GLYCOL 7-18 Daily, X l 3350 142 14:47: 15 day, # Herm adriana MG/ML Oral 00 255 gm, 0 Solution Refill(s) [Miralax] Metformin Yes 500 mg = 1 Me moria hydrochlori 7-18 tab, PO, l de 500 MG 14:47: BID, # 60 Her grigsby Oral Tablet 00 tab, 0 Refill(s) oxyCODONE 5 Yes 5 mg = 1 Me moria mg oral 7-18 tab, PO, l tablet 14:47: Q6H, PRN [place] 00 Pain Score 4-6, X 7 day, # 28 tab, 0 Refill(s) methocarbam Yes 500 mg = 1 Memoria ol 500 mg 7-18 tab, PO, l oral tablet 14:47: Q8H, PRN [place] r[place] 00 Muscle Spasms, X 7 day, # 21 tab, 0 Refill(s) pregabalin Yes 100 mg = 1 M emoria 100 mg oral 7-18 cap, PO, l capsule 14:47: Q8Hnow, # Ly nn 00 90 cap, 0 Refill(s) carvedilol Yes 12.5 mg = Me moria 12.5 mg 7-18 1 tab, PO, l oral tablet 14:47: BID, # 60 H ermann 00 tab, 0 Refill(s) methocarbam Yes 500 mg = 1 Memoria ol 500 mg 7-18 tab, PO, l oral tablet 14:47: Q8H, PRN [place] 00 Muscle Spasms, X 7 day, # 21 tab, 0 Refill(s) pregabalin Yes 100 mg = 1 M emoria 100 mg oral 7-18 cap, PO, l capsule 14:47: Q8Hnow, # Ly nn 00 90 cap, 0 Refill(s) POLYETHYLEN 2015-0 Yes 17 gm, PO, Memoria E GLYCOL 7-18 Daily, X l 3350 142 14:47: 15 day, # Herm adriana MG/ML Oral 00 255 gm, 0 Solution Refill(s) [Miralax] Metformin Yes 500 mg = 1 Me moria hydrochlori 7-18 tab, PO, l de 500 MG 14:47: BID, # 60 Her grigsby Oral Tablet 00 tab, 0 Refill(s) oxyCODONE 5 0 Yes 5 mg = 1 Me moria mg oral 7-18 tab, PO, l tablet 14:47: Q6H, PRN [place] 00 Pain Score 4-6, X 7 day, # 28 tab, 0 Refill(s) POLYETHYLEN 2015-0 Yes 17 gm, PO, Memoria E GLYCOL 7-18 Daily, X l 3350 142 14:47: 15 day, # Herm adriana MG/ML Oral 00 255 gm, 0 Solution Refill(s) [Miralax] Metformin Yes 500 mg = 1 Me moria hydrochlori 7-18 tab, PO, l de 500 MG 14:47: BID, # 60 Her grigsby Oral Tablet 00 tab, 0 Refill(s) oxyCODONE 5 0 Yes 5 mg = 1 Me moria mg oral 7-18 tab, PO, l tablet 14:47: Q6H, PRN [place] 00 Pain Score 4-6, X 7 day, # 28 tab, 0 Refill(s) carvedilol Yes 12.5 mg = Me moria 12.5 mg 7-18 1 tab, PO, l oral tablet 14:47: BID, # 60 H ermann 00 tab, 0 Refill(s) methocarbam 0 Yes 500 mg = 1 Memoria ol 500 mg 7-18 tab, PO, l oral tablet 14:47: Q8H, PRN [place] 00 Muscle Spasms, X 7 day, # 21 tab, 0 Refill(s) pregabalin 0 Yes 100 mg = 1 M emoria 100 mg oral 7-18 cap, PO, l capsule 14:47: Q8Hnow, # Ly nn 00 90 cap, 0 Refill(s) POLYETHYLEN 2016- Yes 17 gm, PO, Memoria E GLYCOL 7-18 Daily, X l 3350 142 14:47: 15 day, # Herm adriana MG/ML Oral 00 255 gm, 0 Solution Refill(s) [Miralax] Metformin Yes 500 mg = 1 Me moria hydrochlori 7-18 tab, PO, l de 500 MG 14:47: BID, # 60 Her grigsby Oral Tablet 00 tab, 0 Refill(s) oxyCODONE 5 Yes 5 mg = 1 Me moria mg oral 7-18 tab, PO, l tablet 14:47: Q6H, PRN [place] 00 Pain Score 4-6, X 7 day, # 28 tab, 0 Refill(s) carvedilol Yes 12.5 mg = Me moria 12.5 mg 7-18 1 tab, PO, l oral tablet 14:47: BID, # 60 H ermann 00 tab, 0 Refill(s) methocarbam Yes 500 mg = 1 Memoria ol 500 mg 7-18 tab, PO, l oral tablet 14:47: Q8H, PRN rmann 00 Muscle Spasms, X 7 day, # 21 tab, 0 Refill(s) pregabalin Yes 100 mg = 1 M emoria 100 mg oral 7-18 cap, PO, l capsule 14:47: Q8Hnow, # Ly nn 00 90 cap, 0 Refill(s) POLYETHYLEN 2016 Yes 17 gm, PO, Memoria E GLYCOL 7-18 Daily, X l 3350 142 14:47: 15 day, # Herm adriana MG/ML Oral 00 255 gm, 0 Solution Refill(s) [Miralax] Metformin Yes 500 mg = 1 Me moria hydrochlori 7-18 tab, PO, l de 500 MG 14:47: BID, # 60 Her grigsby Oral Tablet 00 tab, 0 Refill(s) oxyCODONE 5 Yes 5 mg = 1 Me moria mg oral 7-18 tab, PO, l tablet 14:47: Q6H, PRN [place] 00 Pain Score 4-6, X 7 day, # 28 tab, 0 Refill(s) carvedilol 2016 Yes 12.5 mg = Me moria 12.5 mg 7-18 1 tab, PO, l oral tablet 14:47: BID, # 60 H ermann 00 tab, 0 Refill(s) methocarbam 20160 Yes 500 mg = 1 Memoria ol 500 mg 7-18 tab, PO, l oral tablet 14:47: Q8H, PRN [place] r[place] 00 Muscle Spasms, X 7 day, # 21 tab, 0 Refill(s) pregabalin 0 Yes 100 mg = 1 M emoria 100 mg oral 7-18 cap, PO, l capsule 14:47: Q8Hnow, # Ly nn 00 90 cap, 0 Refill(s) POLYETHYLEN 0 Yes 17 gm, PO, Memoria E GLYCOL 7-18 Daily, X l 3350 142 14:47: 15 day, # Herm adriana MG/ML Oral 00 255 gm, 0 Solution Refill(s) [Miralax] Metformin Yes 500 mg = 1 Me moria hydrochlori 7-18 tab, PO, l de 500 MG 14:47: BID, # 60 Her grigsby Oral Tablet 00 tab, 0 Refill(s) oxyCODONE 5 2016 Yes 5 mg = 1 Me moria mg oral 7-18 tab, PO, l tablet 14:47: Q6H, PRN [place] 00 Pain Score 4-6, X 7 day, # 28 tab, 0 Refill(s) carvedilol 20160 Yes 12.5 mg = Me moria 12.5 mg 7-18 1 tab, PO, l oral tablet 14:47: BID, # 60 H ermann 00 tab, 0 Refill(s) methocarbam 20160 Yes 500 mg = 1 Memoria ol 500 mg 7-18 tab, PO, l oral tablet 14:47: Q8H, PRN [place] 00 Muscle Spasms, X 7 day, # 21 tab, 0 Refill(s) pregabalin 0 Yes 100 mg = 1 M emoria 100 mg oral 7-18 cap, PO, l capsule 14:47: Q8Hnow, # Ly nn 00 90 cap, 0 Refill(s) POLYETHYLEN 0 Yes 17 gm, PO, Memoria E GLYCOL 7-18 Daily, X l 3350 142 14:47: 15 day, # Herm adriana MG/ML Oral 00 255 gm, 0 Solution Refill(s) [Miralax] Metformin Yes 500 mg = 1 Me moria hydrochlori 7-18 tab, PO, l de 500 MG 14:47: BID, # 60 Her grigsby Oral Tablet 00 tab, 0 Refill(s) oxyCODONE 5 Yes 5 mg = 1 Me moria mg oral 7-18 tab, PO, l tablet 14:47: Q6H, PRN [place] 00 Pain Score 4-6, X 7 day, # 28 tab, 0 Refill(s) carvedilol Yes 12.5 mg = Me moria 12.5 mg 7-18 1 tab, PO, l oral tablet 14:47: BID, # 60 H ermann 00 tab, 0 Refill(s) methocarbam Yes 500 mg = 1 Memoria ol 500 mg 7-18 tab, PO, l oral tablet 14:47: Q8H, PRN [place] 00 Muscle Spasms, X 7 day, # 21 tab, 0 Refill(s) pregabalin Yes 100 mg = 1 M emoria 100 mg oral 7-18 cap, PO, l capsule 14:47: Q8Hnow, # Ly nn 00 90 cap, 0 Refill(s) POLYETHYLEN Yes 17 gm, PO, Memoria E GLYCOL 7-18 Daily, X l 3350 142 14:47: 15 day, # Herm adriana MG/ML Oral 00 255 gm, 0 Solution Refill(s) [Miralax] Metformin Yes 500 mg = 1 Me moria hydrochlori 7-18 tab, PO, l de 500 MG 14:47: BID, # 60 Her grigsby Oral Tablet 00 tab, 0 Refill(s) oxyCODONE 5 Yes 5 mg = 1 Me moria mg oral 7-18 tab, PO, l tablet 14:47: Q6H, PRN [place] 00 Pain Score 4-6, X 7 day, # 28 tab, 0 Refill(s) carvedilol Yes 12.5 mg = Me moria 12.5 mg 7-18 1 tab, PO, l oral tablet 14:47: BID, # 60 H ermann 00 tab, 0 Refill(s) methocarbam Yes 500 mg = 1 Memoria ol 500 mg 7-18 tab, PO, l oral tablet 14:47: Q8H, PRN [place] 00 Muscle Spasms, X 7 day, # 21 tab, 0 Refill(s) pregabalin Yes 100 mg = 1 M emoria 100 mg oral 7-18 cap, PO, l capsule 14:47: Q8Hnow, # Ly nn 00 90 cap, 0 Refill(s) POLYETHYLEN 0 Yes 17 gm, PO, Memoria E GLYCOL 7-18 Daily, X l 3350 142 14:47: 15 day, # Herm adriana MG/ML Oral 00 255 gm, 0 Solution Refill(s) [Miralax] Metformin Yes 500 mg = 1 Me moria hydrochlori 7-18 tab, PO, l de 500 MG 14:47: BID, # 60 Her grigsby Oral Tablet 00 tab, 0 Refill(s) oxyCODONE 5 Yes 5 mg = 1 Me moria mg oral 7-18 tab, PO, l tablet 14:47: Q6H, PRN [place] 00 Pain Score 4-6, X 7 day, # 28 tab, 0 Refill(s) carvedilol Yes 12.5 mg = Me moria 12.5 mg 7-18 1 tab, PO, l oral tablet 14:47: BID, # 60 H ermann 00 tab, 0 Refill(s) methocarbam Yes 500 mg = 1 Memoria ol 500 mg 7-18 tab, PO, l oral tablet 14:47: Q8H, PRN [place] r[place] 00 Muscle Spasms, X 7 day, # 21 tab, 0 Refill(s) pregabalin 0 Yes 100 mg = 1 M emoria 100 mg oral 7-18 cap, PO, l capsule 14:47: Q8Hnow, # Ly nn 00 90 cap, 0 Refill(s) POLYETHYLEN 2015-0 Yes 17 gm, PO, Memoria E GLYCOL 7-18 Daily, X l 3350 142 14:47: 15 day, # Herm adriana MG/ML Oral 00 255 gm, 0 Solution Refill(s) [Miralax] Metformin Yes 500 mg = 1 Me moria hydrochlori 7-18 tab, PO, l de 500 MG 14:47: BID, # 60 Her grigsby Oral Tablet 00 tab, 0 Refill(s) oxyCODONE 5 Yes 5 mg = 1 Me moria mg oral 7-18 tab, PO, l tablet 14:47: Q6H, PRN [place] 00 Pain Score 4-6, X 7 day, # 28 tab, 0 Refill(s) carvedilol Yes 12.5 mg = Me moria 12.5 mg 7-18 1 tab, PO, l oral tablet 14:47: BID, # 60 H ermann 00 tab, 0 Refill(s) methocarbam Yes 500 mg = 1 Memoria ol 500 mg 7-18 tab, PO, l oral tablet 14:47: Q8H, PRN [place] 00 Muscle Spasms, X 7 day, # 21 tab, 0 Refill(s) pregabalin Yes 100 mg = 1 M emoria 100 mg oral 7-18 cap, PO, l capsule 14:47: Q8Hnow, # Ly nn 00 90 cap, 0 Refill(s) POLYETHYLEN Yes 17 gm, PO, Memoria E GLYCOL 7-18 Daily, X l 3350 142 14:47: 15 day, # Herm adriana MG/ML Oral 00 255 gm, 0 Solution Refill(s) [Miralax] Metformin Yes 500 mg = 1 Me moria hydrochlori 7-18 tab, PO, l de 500 MG 14:47: BID, # 60 Her grigsby Oral Tablet 00 tab, 0 Refill(s) oxyCODONE 5 Yes 5 mg = 1 Me moria mg oral 7-18 tab, PO, l tablet 14:47: Q6H, PRN [place] 00 Pain Score 4-6, X 7 day, # 28 tab, 0 Refill(s) carvedilol Yes 12.5 mg = Me moria 12.5 mg 7-18 1 tab, PO, l oral tablet 14:47: BID, # 60 H ermann 00 tab, 0 Refill(s) methocarbam Yes 500 mg = 1 Memoria ol 500 mg 7-18 tab, PO, l oral tablet 14:47: Q8H, PRN [place] r[place] 00 Muscle Spasms, X 7 day, # 21 tab, 0 Refill(s) pregabalin 2015-0 Yes 100 mg = 1 M emoria 100 mg oral 7-18 cap, PO, l capsule 14:47: Q8Hnow, # Ly nn 00 90 cap, 0 Refill(s) POLYETHYLEN 2015-0 Yes 17 gm, PO, Memoria E GLYCOL 7-18 Daily, X l 3350 142 14:47: 15 day, # Herm adriana MG/ML Oral 00 255 gm, 0 Solution Refill(s) [Miralax] Metformin Yes 500 mg = 1 Me moria hydrochlori 7-18 tab, PO, l de 500 MG 14:47: BID, # 60 Her grigsby Oral Tablet 00 tab, 0 Refill(s) oxyCODONE 5 Yes 5 mg = 1 Me moria mg oral 7-18 tab, PO, l tablet 14:47: Q6H, PRN [place] 00 Pain Score 4-6, X 7 day, # 28 tab, 0 Refill(s) carvedilol Yes 12.5 mg = Me moria 12.5 mg 7-18 1 tab, PO, l oral tablet 14:47: BID, # 60 H ermann 00 tab, 0 Refill(s) methocarbam Yes 500 mg = 1 Memoria ol 500 mg 7-18 tab, PO, l oral tablet 14:47: Q8H, PRN [place] r[place] 00 Muscle Spasms, X 7 day, # 21 tab, 0 Refill(s) pregabalin 20160 Yes 100 mg = 1 M emoria 100 mg oral 7-18 cap, PO, l capsule 14:47: Q8Hnow, # Ly nn 00 90 cap, 0 Refill(s) POLYETHYLEN 2016-0 Yes 17 gm, PO, Memoria E GLYCOL 7-18 Daily, X l 3350 142 14:47: 15 day, # Herm adriana MG/ML Oral 00 255 gm, 0 Solution Refill(s) [Miralax] Metformin Yes 500 mg = 1 Me moria hydrochlori 7-18 tab, PO, l de 500 MG 14:47: BID, # 60 Her grigsby Oral Tablet 00 tab, 0 Refill(s) oxyCODONE 5 Yes 5 mg = 1 Me moria mg oral 7-18 tab, PO, l tablet 14:47: Q6H, PRN [place] 00 Pain Score 4-6, X 7 day, # 28 tab, 0 Refill(s) carvedilol Yes 12.5 mg = Me moria 12.5 mg 7-18 1 tab, PO, l oral tablet 14:47: BID, # 60 H ermann 00 tab, 0 Refill(s) methocarbam Yes 500 mg = 1 Memoria ol 500 mg 7-18 tab, PO, l oral tablet 14:47: Q8H, PRN [place] r[place] 00 Muscle Spasms, X 7 day, # 21 tab, 0 Refill(s) pregabalin Yes 100 mg = 1 M emoria 100 mg oral 7-18 cap, PO, l capsule 14:47: Q8Hnow, # Ly nn 00 90 cap, 0 Refill(s) POLYETHYLEN Yes 17 gm, PO, Memoria E GLYCOL 7-18 Daily, X l 3350 142 14:47: 15 day, # Herm adriana MG/ML Oral 00 255 gm, 0 Solution Refill(s) [Miralax] Metformin Yes 500 mg = 1 Me moria hydrochlori 7-18 tab, PO, l de 500 MG 14:47: BID, # 60 Her grigsby Oral Tablet 00 tab, 0 Refill(s) oxyCODONE 5 Yes 5 mg = 1 Me moria mg oral 7-18 tab, PO, l tablet 14:47: Q6H, PRN [place] 00 Pain Score 4-6, X 7 day, # 28 tab, 0 Refill(s) carvedilol Yes 12.5 mg = Me moria 12.5 mg 7-18 1 tab, PO, l oral tablet 14:47: BID, # 60 H ermann 00 tab, 0 Refill(s) methocarbam Yes 500 mg = 1 Memoria ol 500 mg 7-18 tab, PO, l oral tablet 14:47: Q8H, PRN [place] 00 Muscle Spasms, X 7 day, # 21 tab, 0 Refill(s) pregabalin Yes 100 mg = 1 M emoria 100 mg oral 7-18 cap, PO, l capsule 14:47: Q8Hnow, # Ly nn 00 90 cap, 0 Refill(s) POLYETHYLEN 0 Yes 17 gm, PO, Memoria E GLYCOL 7-18 Daily, X l 3350 142 14:47: 15 day, # Herm adriana MG/ML Oral 00 255 gm, 0 Solution Refill(s) [Miralax] Metformin Yes 500 mg = 1 Me moria hydrochlori 7-18 tab, PO, l de 500 MG 14:47: BID, # 60 Her grigsby Oral Tablet 00 tab, 0 Refill(s) oxyCODONE 5 Yes 5 mg = 1 Me moria mg oral 7-18 tab, PO, l tablet 14:47: Q6H, PRN [place] 00 Pain Score 4-6, X 7 day, # 28 tab, 0 Refill(s) carvedilol Yes 12.5 mg = Me moria 12.5 mg 7-18 1 tab, PO, l oral tablet 14:47: BID, # 60 H ermann 00 tab, 0 Refill(s) methocarbam Yes 500 mg = 1 Memoria ol 500 mg 7-18 tab, PO, l oral tablet 14:47: Q8H, PRN [place] 00 Muscle Spasms, X 7 day, # 21 tab, 0 Refill(s) pregabalin 0 Yes 100 mg = 1 M emoria 100 mg oral 7-18 cap, PO, l capsule 14:47: Q8Hnow, # Ly nn 00 90 cap, 0 Refill(s) POLYETHYLEN 0 Yes 17 gm, PO, Memoria E GLYCOL 7-18 Daily, X l 3350 142 14:47: 15 day, # Herm adriana MG/ML Oral 00 255 gm, 0 Solution Refill(s) [Miralax] Metformin 0 Yes 500 mg = 1 Me moria hydrochlori 7-18 tab, PO, l de 500 MG 14:47: BID, # 60 Her grigsby Oral Tablet 00 tab, 0 Refill(s) oxyCODONE 5 0 Yes 5 mg = 1 Me moria mg oral 7-18 tab, PO, l tablet 14:47: Q6H, PRN [place] 00 Pain Score 4-6, X 7 day, # 28 tab, 0 Refill(s) carvedilol Yes 12.5 mg = Me moria 12.5 mg 7-18 1 tab, PO, l oral tablet 14:47: BID, # 60 H ermann 00 tab, 0 Refill(s) methocarbam Yes 500 mg = 1 Memoria ol 500 mg 7-18 tab, PO, l oral tablet 14:47: Q8H, PRN [place] r[place] 00 Muscle Spasms, X 7 day, # 21 tab, 0 Refill(s) pregabalin Yes 100 mg = 1 M emoria 100 mg oral 7-18 cap, PO, l capsule 14:47: Q8Hnow, # Ly nn 00 90 cap, 0 Refill(s) POLYETHYLEN Yes 17 gm, PO, Memoria E GLYCOL 7-18 Daily, X l 3350 142 14:47: 15 day, # Herm adriana MG/ML Oral 00 255 gm, 0 Solution Refill(s) [Miralax] Metformin Yes 500 mg = 1 Me moria hydrochlori 7-18 tab, PO, l de 500 MG 14:47: BID, # 60 Her grigsby Oral Tablet 00 tab, 0 Refill(s) oxyCODONE 5 Yes 5 mg = 1 Me moria mg oral 7-18 tab, PO, l tablet 14:47: Q6H, PRN [place] 00 Pain Score 4-6, X 7 day, # 28 tab, 0 Refill(s) carvedilol Yes 12.5 mg = Me moria 12.5 mg 7-18 1 tab, PO, l oral tablet 14:47: BID, # 60 H ermann 00 tab, 0 Refill(s) methocarbam Yes 500 mg = 1 Memoria ol 500 mg 7-18 tab, PO, l oral tablet 14:47: Q8H, PRN [place] r[place] 00 Muscle Spasms, X 7 day, # 21 tab, 0 Refill(s) pregabalin Yes 100 mg = 1 M emoria 100 mg oral 7-18 cap, PO, l capsule 14:47: Q8Hnow, # Ly nn 00 90 cap, 0 Refill(s) POLYETHYLEN 2016- Yes 17 gm, PO, Memoria E GLYCOL 7-18 Daily, X l 3350 142 14:47: 15 day, # Herm adriana MG/ML Oral 00 255 gm, 0 Solution Refill(s) [Miralax] Metformin Yes 500 mg = 1 Me moria hydrochlori 7-18 tab, PO, l de 500 MG 14:47: BID, # 60 Her grigsby Oral Tablet 00 tab, 0 Refill(s) oxyCODONE 5 Yes 5 mg = 1 Me moria mg oral 7-18 tab, PO, l tablet 14:47: Q6H, PRN [place] 00 Pain Score 4-6, X 7 day, # 28 tab, 0 Refill(s) carvedilol Yes 12.5 mg = Me moria 12.5 mg 7-18 1 tab, PO, l oral tablet 14:47: BID, # 60 H ermann 00 tab, 0 Refill(s) methocarbam Yes 500 mg = 1 Memoria ol 500 mg 7-18 tab, PO, l oral tablet 14:47: Q8H, PRN [place] 00 Muscle Spasms, X 7 day, # 21 tab, 0 Refill(s) pregabalin Yes 100 mg = 1 M emoria 100 mg oral 7-18 cap, PO, l capsule 14:47: Q8Hnow, # Ly nn 00 90 cap, 0 Refill(s) POLYETHYLEN 20160 Yes 17 gm, PO, Memoria E GLYCOL 7-18 Daily, X l 3350 142 14:47: 15 day, # Herm adriana MG/ML Oral 00 255 gm, 0 Solution Refill(s) [Miralax] Metformin Yes 500 mg = 1 Me moria hydrochlori 7-18 tab, PO, l de 500 MG 14:47: BID, # 60 Her grigsby Oral Tablet 00 tab, 0 Refill(s) oxyCODONE 5 0 Yes 5 mg = 1 Me moria mg oral 7-18 tab, PO, l tablet 14:47: Q6H, PRN [place] 00 Pain Score 4-6, X 7 day, # 28 tab, 0 Refill(s) carvedilol 2016-0 Yes 12.5 mg = Me moria 12.5 mg 7-18 1 tab, PO, l oral tablet 14:47: BID, # 60 H ermann 00 tab, 0 Refill(s) methocarbam 2016-0 Yes 500 mg = 1 Memoria ol 500 mg 7-18 tab, PO, l oral tablet 14:47: Q8H, PRN [place] 00 Muscle Spasms, X 7 day, # 21 tab, 0 Refill(s) pregabalin 20160 Yes 100 mg = 1 M emoria 100 mg oral 7-18 cap, PO, l capsule 14:47: Q8Hnow, # Ly nn 00 90 cap, 0 Refill(s) POLYETHYLEN 2016-0 Yes 17 gm, PO, Memoria E GLYCOL 7-18 Daily, X l 3350 142 14:47: 15 day, # Herm adriana MG/ML Oral 00 255 gm, 0 Solution Refill(s) [Miralax] Metformin 20160 Yes 500 mg = 1 Me moria hydrochlori 7-18 tab, PO, l de 500 MG 14:47: BID, # 60 Her grigsby Oral Tablet 00 tab, 0 Refill(s) oxyCODONE 5 20160 Yes 5 mg = 1 Me moria mg oral 7-18 tab, PO, l tablet 14:47: Q6H, PRN [place] 00 Pain Score 4-6, X 7 day, # 28 tab, 0 Refill(s) carvedilol 2016-0 Yes 12.5 mg = Me moria 12.5 mg 7-18 1 tab, PO, l oral tablet 14:47: BID, # 60 H ermann 00 tab, 0 Refill(s) methocarbam 2016-0 Yes 500 mg = 1 Memoria ol 500 mg 7-18 tab, PO, l oral tablet 14:47: Q8H, PRN [place] 00 Muscle Spasms, X 7 day, # 21 tab, 0 Refill(s) pregabalin 2016-0 Yes 100 mg = 1 M emoria 100 mg oral 7-18 cap, PO, l capsule 14:47: Q8Hnow, # Ly nn 00 90 cap, 0 Refill(s) POLYETHYLEN 2016-0 Yes 17 gm, PO, Memoria E GLYCOL 7-18 Daily, X l 3350 142 14:47: 15 day, # Herm adriana MG/ML Oral 00 255 gm, 0 Solution Refill(s) [Miralax] Metformin Yes 500 mg = 1 Me moria hydrochlori 7-18 tab, PO, l de 500 MG 14:47: BID, # 60 Her grigsby Oral Tablet 00 tab, 0 Refill(s) oxyCODONE 5 Yes 5 mg = 1 Me moria mg oral 7-18 tab, PO, l tablet 14:47: Q6H, PRN [place] 00 Pain Score 4-6, X 7 day, # 28 tab, 0 Refill(s) carvedilol Yes 12.5 mg = Me moria 12.5 mg 7-18 1 tab, PO, l oral tablet 14:47: BID, # 60 H [place] 00 tab, 0 Refill(s) methocarbam Yes 500 mg = 1 Memoria ol 500 mg 7-18 tab, PO, l oral tablet 14:47: Q8H, PRN rmann 00 Muscle Spasms, X 7 day, # 21 tab, 0 Refill(s) pregabalin Yes 100 mg = 1 M emoria 100 mg oral 7-18 cap, PO, l capsule 14:47: Q8Hnow, # Ly nn 00 90 cap, 0 Refill(s) POLYETHYLEN Yes 17 gm, PO, Memoria E GLYCOL 7-18 Daily, X l 3350 142 14:47: 15 day, # Herm adriana MG/ML Oral 00 255 gm, 0 Solution Refill(s) [Miralax] Metformin Yes 500 mg = 1 Me moria hydrochlori 7-18 tab, PO, l de 500 MG 14:47: BID, # 60 Her grigsby Oral Tablet 00 tab, 0 Refill(s) oxyCODONE 5 Yes 5 mg = 1 Me moria mg oral 7-18 tab, PO, l tablet 14:47: Q6H, PRN [place] 00 Pain Score 4-6, X 7 day, # 28 tab, 0 Refill(s) carvedilol Yes 12.5 mg = Me moria 12.5 mg 7-18 1 tab, PO, l oral tablet 14:47: BID, # 60 H [place] 00 tab, 0 Refill(s) methocarbam 2016-0 Yes 500 mg = 1 Memoria ol 500 mg 7-18 tab, PO, l oral tablet 14:47: Q8H, PRN [place] r[place] 00 Muscle Spasms, X 7 day, # 21 tab, 0 Refill(s) pregabalin 2015-0 Yes 100 mg = 1 M emoria 100 mg oral 7-18 cap, PO, l capsule 14:47: Q8Hnow, # Ly nn 00 90 cap, 0 Refill(s) POLYETHYLEN 2015-0 Yes 17 gm, PO, Memoria E GLYCOL 7-18 Daily, X l 3350 142 14:47: 15 day, # Herm adriana MG/ML Oral 00 255 gm, 0 Solution Refill(s) [Miralax] Metformin Yes 500 mg = 1 Me moria hydrochlori 7-18 tab, PO, l de 500 MG 14:47: BID, # 60 Her grigsby Oral Tablet 00 tab, 0 Refill(s) oxyCODONE 5 0 Yes 5 mg = 1 Me moria mg oral 7-18 tab, PO, l tablet 14:47: Q6H, PRN [place] 00 Pain Score 4-6, X 7 day, # 28 tab, 0 Refill(s) carvedilol 0 Yes 12.5 mg = Me moria 12.5 mg 7-18 1 tab, PO, l oral tablet 14:47: BID, # 60 H ermann 00 tab, 0 Refill(s) methocarbam 2016-0 Yes 500 mg = 1 Memoria ol 500 mg 7-18 tab, PO, l oral tablet 14:47: Q8H, PRN He r[place] 00 Muscle Spasms, X 7 day, # 21 tab, 0 Refill(s) pregabalin 2016-0 Yes 100 mg = 1 M emoria 100 mg oral 7-18 cap, PO, l capsule 14:47: Q8Hnow, # Ly nn 00 90 cap, 0 Refill(s) POLYETHYLEN 2015-0 Yes 17 gm, PO, Memoria E GLYCOL 7-18 Daily, X l 3350 142 14:47: 15 day, # Herm adriana MG/ML Oral 00 255 gm, 0 Solution Refill(s) [Miralax] Metformin 2016-0 Yes 500 mg = 1 Me moria hydrochlori 7-18 tab, PO, l de 500 MG 14:47: BID, # 60 Her grigsby Oral Tablet 00 tab, 0 Refill(s) oxyCODONE 5 Yes 5 mg = 1 Me moria mg oral 7-18 tab, PO, l tablet 14:47: Q6H, PRN [place] 00 Pain Score 4-6, X 7 day, # 28 tab, 0 Refill(s) carvedilol Yes 12.5 mg = Me moria 12.5 mg 7-18 1 tab, PO, l oral tablet 14:47: BID, # 60 H ermann 00 tab, 0 Refill(s) methocarbam Yes 500 mg = 1 Memoria ol 500 mg 7-18 tab, PO, l oral tablet 14:47: Q8H, PRN He r[place] 00 Muscle Spasms, X 7 day, # 21 tab, 0 Refill(s) pregabalin Yes 100 mg = 1 M emoria 100 mg oral 7-18 cap, PO, l capsule 14:47: Q8Hnow, # Ly nn 00 90 cap, 0 Refill(s) POLYETHYLEN Yes 17 gm, PO, Memoria E GLYCOL 7-18 Daily, X l 3350 142 14:47: 15 day, # Herm adriana MG/ML Oral 00 255 gm, 0 Solution Refill(s) [Miralax] Metformin Yes 500 mg = 1 Me moria hydrochlori 7-18 tab, PO, l de 500 MG 14:47: BID, # 60 Her grigsby Oral Tablet 00 tab, 0 Refill(s) oxyCODONE 5 Yes 5 mg = 1 Me moria mg oral 7-18 tab, PO, l tablet 14:47: Q6H, PRN Rodney 00 Pain Score 4-6, X 7 day, # 28 tab, 0 Refill(s) Hydrochloro No 1 tab, PO, Memoria thiazide 25 7-17 Daily l MG / 19:47: [place] Lisinopril 00 20 MG Oral Tablet Hydrochloro No 1 tab, PO, Memoria thiazide 25 7-17 Daily l MG / 19:47: [place] Lisinopril 00 20 MG Oral Tablet Hydrochloro No 1 tab, PO, Memoria thiazide 25 7-17 Daily l MG / 19:47: [place] Lisinopril 00 20 MG Oral Tablet Hydrochloro No 1 tab, PO, Memoria thiazide 25 7-17 Daily l MG / 19:47: [place] Lisinopril 00 20 MG Oral Tablet Hydrochloro No 1 tab, PO, Memoria thiazide 25 7-17 Daily l MG / 19:47: [place] Lisinopril 00 20 MG Oral Tablet Hydrochloro No 1 tab, PO, Memoria thiazide 25 7-17 Daily l MG / 19:47: [place] Lisinopril 00 20 MG Oral Tablet Hydrochloro No 1 tab, PO, Memoria thiazide 25 7-17 Daily l MG / 19:47: [place] Lisinopril 00 20 MG Oral Tablet Hydrochloro No 1 tab, PO, Memoria thiazide 25 7-17 Daily l MG / 19:47: [place] Lisinopril 00 20 MG Oral Tablet Hydrochloro No 1 tab, PO, Memoria thiazide 25 7-17 Daily l MG / 19:47: [place] Lisinopril 00 20 MG Oral Tablet Hydrochloro No 1 tab, PO, Memoria thiazide 25 7-17 Daily l MG / 19:47: [place] Lisinopril 00 20 MG Oral Tablet Hydrochloro No 1 tab, PO, Memoria thiazide 25 7-17 Daily l MG / 19:47: [place] Lisinopril 00 20 MG Oral Tablet Hydrochloro No 1 tab, PO, Memoria thiazide 25 7-17 Daily l MG / 19:47: [place] Lisinopril 00 20 MG Oral Tablet Hydrochloro No 1 tab, PO, Memoria thiazide 25 7-17 Daily l MG / 19:47: [place] Lisinopril 00 20 MG Oral Tablet Hydrochloro No 1 tab, PO, Memoria thiazide 25 7-17 Daily l MG / 19:47: [place] Lisinopril 00 20 MG Oral Tablet Hydrochloro No 1 tab, PO, Memoria thiazide 25 7-17 Daily l MG / 19:47: [place] Lisinopril 00 20 MG Oral Tablet Hydrochloro 2016-0 No 1 tab, PO, Memoria thiazide 25 7-17 Daily l MG / 19:47: [place] Lisinopril 00 20 MG Oral Tablet Hydrochloro No 1 tab, PO, Memoria thiazide 25 7-17 Daily l MG / 19:47: [place] Lisinopril 00 20 MG Oral Tablet Hydrochloro No 1 tab, PO, Memoria thiazide 25 7-17 Daily l MG / 19:47: [place] Lisinopril 00 20 MG Oral Tablet Hydrochloro No 1 tab, PO, Memoria thiazide 25 7-17 Daily l MG / 19:47: [place] Lisinopril 00 20 MG Oral Tablet Hydrochloro No 1 tab, PO, Memoria thiazide 25 7-17 Daily l MG / 19:47: [place] Lisinopril 00 20 MG Oral Tablet Hydrochloro No 1 tab, PO, Memoria thiazide 25 7-17 Daily l MG / 19:47: [place] Lisinopril 00 20 MG Oral Tablet Hydrochloro No 1 tab, PO, Memoria thiazide 25 7-17 Daily l MG / 19:47: [place] Lisinopril 00 20 MG Oral Tablet Hydrochloro No 1 tab, PO, Memoria thiazide 25 7-17 Daily l MG / 19:47: [place] Lisinopril 00 20 MG Oral Tablet Hydrochloro No 1 tab, PO, Memoria thiazide 25 7-17 Daily l MG / 19:47: [place] Lisinopril 00 20 MG Oral Tablet Hydrochloro No 1 tab, PO, Memoria thiazide 25 7-17 Daily l MG / 19:47: [place] Lisinopril 00 20 MG Oral Tablet Hydrochloro No 1 tab, PO, Memoria thiazide 25 7-17 Daily l MG / 19:47: [place] Lisinopril 00 20 MG Oral Tablet Hydrochloro No 1 tab, PO, Memoria thiazide 25 7-17 Daily l MG / 19:47: [place] Lisinopril 00 20 MG Oral Tablet Hydrochloro No 1 tab, PO, Memoria thiazide 25 7-17 Daily l MG / 19:47: [place] Lisinopril 00 20 MG Oral Tablet Hydrochloro No 1 tab, PO, Memoria thiazide 25 7-17 Daily l MG / 19:47: [place] Lisinopril 00 20 MG Oral Tablet Hydrochloro No 1 tab, PO, Memoria thiazide 25 7-17 Daily l MG / 19:47: [place] Lisinopril 00 20 MG Oral Tablet Hydrochloro No 1 tab, PO, Memoria thiazide 25 7-17 Daily l MG / 19:47: [place] Lisinopril 00 20 MG Oral Tablet Hydrochloro No 1 tab, PO, [facility] thiazide 25 7-17 Daily l MG / 19:47: [place] Lisinopril 00 20 MG Oral Tablet Hydrochloro No 1 tab, PO, [facility] thiazide 25 7-17 Daily l MG / 19:47: [place] Lisinopril 00 20 MG Oral Tablet Hydrochloro No 1 tab, PO, [facility] thiazide 25 7-17 Daily l MG / 19:47: [place] Lisinopril 00 20 MG Oral Tablet Hydrochloro No 1 tab, PO, [facility] thiazide 25 7-17 Daily l MG / 19:47: [place] Lisinopril 00 20 MG Oral Tablet Hydrochloro No 1 tab, PO, [facility] thiazide 25 7-17 Daily l MG / 19:47: [place] Lisinopril 00 20 MG Oral Tablet Hydrochloro No 1 tab, PO, [facility] thiazide 25 7-17 Daily l MG / 19:47: [place] Lisinopril 00 20 MG Oral Tablet Hydrochloro No 1 tab, PO, [facility] thiazide 25 7-17 Daily l MG / 19:47: [place] Lisinopril 00 20 MG Oral Tablet Hydrochloro No 1 tab, PO, [facility] thiazide 25 7-17 Daily l MG / 19:47: [place] Lisinopril 00 20 MG Oral Tablet Hydrochloro No 1 tab, PO, [facility] thiazide 25 7-17 Daily l MG / 19:47: [place] Lisinopril 00 20 MG Oral Tablet Hydrochloro No 1 tab, PO, [facility] thiazide 25 7-17 Daily l MG / 19:47: [place] Lisinopril 00 20 MG Oral Tablet Hydrochloro No 1 tab, PO, [facility] thiazide 25 7-17 Daily l MG / 19:47: [place] Lisinopril 00 20 MG Oral Tablet Hydrochloro 2016-0 No 1 tab, PO, [facility] thiazide 25 7-17 Daily l MG / 19:47: [place] Lisinopril 00 20 MG Oral Tablet Hydrochloro 0 No 1 tab, PO, [facility] thiazide 25 7-17 Daily l MG / 19:47: [place] Lisinopril 00 20 MG Oral Tablet Hydrochloro 20160 No 1 tab, PO, [facility] thiazide 25 7-17 Daily l MG / 19:47: [place] Lisinopril 00 20 MG Oral Tablet Hydrochloro 20160 No 1 tab, PO, [facility] thiazide 25 7-17 Daily l MG / 19:47: [place] Lisinopril 00 20 MG Oral Tablet potassium No Notes: [facility] a chloride 7-17 (Same as: l 15:00: KCL) [place] 00 Infuse over 2 hours. potassium No Notes: [facility] a chloride 7-17 (Same as: l 15:00: KCL) [place] 00 Infuse over 2 hours. potassium No Notes: [facility] a chloride 7-17 (Same as: l 15:00: KCL) [place] 00 Infuse over 2 hours. potassium No Notes: [facility] a chloride 7-17 (Same as: l 15:00: KCL) [place] 00 Infuse over 2 hours. potassium No Notes: [facility] a chloride 7-17 (Same as: l 15:00: KCL) [place] 00 Infuse over 2 hours. potassium No Notes: [facility] a chloride 7-17 (Same as: l 15:00: KCL) [place] 00 Infuse over 2 hours. potassium No Notes: [facility] a chloride 7-17 (Same as: l 15:00: KCL) [place] 00 Infuse over 2 hours. potassium 0 No Notes: [facility] a chloride 7-17 (Same as: l 15:00: KCL) [place] 00 Infuse over 2 hours. potassium 0 No Notes: [facility] a chloride 7-17 (Same as: l 15:00: KCL) [place] 00 Infuse over 2 hours. potassium 0 No Notes: [facility] a chloride 7-17 (Same as: l 15:00: KCL) [place] 00 Infuse over 2 hours. potassium 2015-0 No Notes: [facility] a chloride 7-17 (Same as: l 15:00: KCL) [place] 00 Infuse over 2 hours. potassium 0 No Notes: [facility] a chloride 7-17 (Same as: l 15:00: KCL) [place] 00 Infuse over 2 hours. potassium 0 No Notes: [facility] a chloride 7-17 (Same as: l 15:00: KCL) [place] 00 Infuse over 2 hours. potassium 0 No Notes: [facility] a chloride 7-17 (Same as: l 15:00: KCL) [place] 00 Infuse over 2 hours. potassium 2015-0 No Notes: [facility] a chloride 7-17 (Same as: l 15:00: KCL) [place] 00 Infuse over 2 hours. potassium 0 No Notes: [facility] a chloride 7-17 (Same as: l 15:00: KCL) [place] 00 Infuse over 2 hours. potassium 0 No Notes: [facility] a chloride 7-17 (Same as: l 15:00: KCL) [place] 00 Infuse over 2 hours. potassium 0 No Notes: [facility] a chloride 7-17 (Same as: l 15:00: KCL) [place] 00 Infuse over 2 hours. potassium 0 No Notes: [facility] a chloride 7-17 (Same as: l 15:00: KCL) [place] 00 Infuse over 2 hours. potassium 0 No Notes: [facility] a chloride 7-17 (Same as: l 15:00: KCL) [place] 00 Infuse over 2 hours. potassium 0 No Notes: [facility] a chloride 7-17 (Same as: l 15:00: KCL) [place] 00 Infuse over 2 hours. potassium 0 No Notes: [facility] a chloride 7-17 (Same as: l 15:00: KCL) [place] 00 Infuse over 2 hours. potassium 2015-0 No Notes: [facility] a chloride 7-17 (Same as: l 15:00: KCL) [place] 00 Infuse over 2 hours. potassium 0 No Notes: [facility] a chloride 7-17 (Same as: l 15:00: KCL) [place] 00 Infuse over 2 hours. potassium 0 No Notes: [facility] a chloride 7-17 (Same as: l 15:00: KCL) [place] 00 Infuse over 2 hours. potassium 2015-0 No Notes: [facility] a chloride 7-17 (Same as: l 15:00: KCL) [place] 00 Infuse over 2 hours. potassium 0 No Notes: [facility] a chloride 7-17 (Same as: l 15:00: KCL) [place] 00 Infuse over 2 hours. potassium 0 No Notes: [facility] a chloride 7-17 (Same as: l 15:00: KCL) [place] 00 Infuse over 2 hours. potassium 0 No Notes: [facility] a chloride 7-17 (Same as: l 15:00: KCL) [place] 00 Infuse over 2 hours. potassium 0 No Notes: [facility] a chloride 7-17 (Same as: l 15:00: KCL) [place] 00 Infuse over 2 hours. potassium 0 No Notes: [facility] a chloride 7-17 (Same as: l 15:00: KCL) [place] 00 Infuse over 2 hours. potassium 0 No Notes: [facility] a chloride 7-17 (Same as: l 15:00: KCL) [place] 00 Infuse over 2 hours. potassium 0 No Notes: [facility] a chloride 7-17 (Same as: l 15:00: KCL) [place] 00 Infuse over 2 hours. potassium No Notes: [facility] a chloride 7-17 (Same as: l 15:00: KCL) [place] 00 Infuse over 2 hours. potassium No Notes: [facility] a chloride 7-17 (Same as: l 15:00: KCL) [place] 00 Infuse over 2 hours. potassium 0 No Notes: [facility] a chloride 7-17 (Same as: l 15:00: KCL) [place] 00 Infuse over 2 hours. potassium 0 No Notes: [facility] a chloride 7-17 (Same as: l 15:00: KCL) [place] 00 Infuse over 2 hours. potassium 0 No Notes: [facility] a chloride 7-17 (Same as: l 15:00: KCL) [place] 00 Infuse over 2 hours. potassium 0 No Notes: [facility] a chloride 7-17 (Same as: l 15:00: KCL) [place] 00 Infuse over 2 hours. potassium 2016-0 No Notes: [facility] a chloride 7-17 (Same as: l 15:00: KCL) [place] 00 Infuse over 2 hours. potassium No Notes: [facility] a chloride 7-17 (Same as: l 15:00: KCL) [place] 00 Infuse over 2 hours. potassium No Notes: [facility] a chloride 7-17 (Same as: l 15:00: KCL) [place] 00 Infuse over 2 hours. potassium No Notes: [facility] a chloride 7-17 (Same as: l 15:00: KCL) [place] 00 Infuse over 2 hours. potassium No Notes: [facility] a chloride 7-17 (Same as: l 15:00: KCL) [place] 00 Infuse over 2 hours. potassium No Notes: [facility] a chloride 7-17 (Same as: l 15:00: KCL) [place] 00 Infuse over 2 hours. potassium No Notes: [facility] a chloride 7-17 (Same as: l 15:00: KCL) [place] 00 Infuse over 2 hours. POLYETHYLEN No Notes: Aj peggy E GLYCOL 7-17 Dissolve l 3350 14:00: in 8 oz of [place] 00 water or juice. (Same as: Miralax) pneumococca No Notes: Aj peggy l capsular 7-17 (Same as: l polysacchar 14:00: Pneumovax H ermann taco type 1 ) vaccine / Refrigerat pneumococca e l capsular polysacchar taco type 10A vaccine / pneumococca l capsular polysacchar taco type 11A vaccine / pneumococca l capsular polysacchar taco type 12F vaccine / pneumococca l capsular polysacchar POLYETHYLEN No Notes: Aj peggy E GLYCOL 7-17 Dissolve l 3350 14:00: in 8 oz of [place] 00 water or juice. (Same as: Miralax) pneumococca No Notes: Aj peggy l capsular 7-17 (Same as: l polysacchar 14:00: Pneumovax H ermann taco type 1 23) vaccine / Refrigerat pneumococca e l capsular polysacchar taco type 10A vaccine / pneumococca l capsular polysacchar taco type 11A vaccine / pneumococca l capsular polysacchar taco type 12F vaccine / pneumococca l capsular polysacchar POLYETHYLEN No Notes: Aj peggy E GLYCOL 7-17 Dissolve l 3350 14:00: in 8 oz of [place] 00 water or juice. (Same as: Miralax) pneumococca No Notes: Aj peggy l capsular 7-17 (Same as: l polysacchar 14:00: Pneumovax H ermann taco type 1 23) vaccine / Refrigerat pneumococca e l capsular polysacchar taco type 10A vaccine / pneumococca l capsular polysacchar taco type 11A vaccine / pneumococca l capsular polysacchar taco type 12F vaccine / pneumococca l capsular polysacchar POLYETHYLEN No Notes: Aj peggy E GLYCOL 7-17 Dissolve l 3350 14:00: in 8 oz of [place] 00 water or juice. (Same as: Miralax) pneumococca No Notes: Aj peggy l capsular 7-17 (Same as: l polysacchar 14:00: Pneumovax H ermann taco type 23) vaccine / Refrigerat pneumococca e l capsular polysacchar taco type 10A vaccine / pneumococca l capsular polysacchar taco type 11A vaccine / pneumococca l capsular polysacchar taco type 12F vaccine / pneumococca l capsular polysacchar POLYETHYLEN No Notes: Aj peggy E GLYCOL 7-17 Dissolve l 3350 14:00: in 8 oz of [place] 00 water or juice. (Same as: Miralax) pneumococca No Notes: [place] peggy l capsular 7-17 (Same as: l polysacchar 14:00: Pneumovax H ermann taco type 23) vaccine / Refrigerat pneumococca e l capsular polysacchar taco type 10A vaccine / pneumococca l capsular polysacchar taco type 11A vaccine / pneumococca l capsular polysacchar taco type 12F vaccine / pneumococca l capsular polysacchar POLYETHYLEN No Notes: Aj peggy E GLYCOL 7-17 Dissolve l 3350 14:00: in 8 oz of [place] 00 water or juice. (Same as: Miralax) pneumococca No Notes: Aj peggy l capsular 7-17 (Same as: l polysacchar 14:00: Pneumovax H ermann taco type 1 23) vaccine / Refrigerat pneumococca e l capsular polysacchar taco type 10A vaccine / pneumococca l capsular polysacchar taco type 11A vaccine / pneumococca l capsular polysacchar taco type 12F vaccine / pneumococca l capsular polysacchar POLYETHYLEN No Notes: Aj peggy E GLYCOL 7-17 Dissolve l 3350 14:00: in 8 oz of [place] 00 water or juice. (Same as: Miralax) pneumococca No Notes: Aj peggy l capsular 7-17 (Same as: l polysacchar 14:00: Pneumovax H ermann taco type ) vaccine / Refrigerat pneumococca e l capsular polysacchar taco type 10A vaccine / pneumococca l capsular polysacchar taco type 11A vaccine / pneumococca l capsular polysacchar taco type 12F vaccine / pneumococca l capsular polysacchar POLYETHYLEN No Notes: Aj peggy E GLYCOL 7-17 Dissolve l 3350 14:00: in 8 oz of [place] 00 water or juice. (Same as: Miralax) pneumococca No Notes: Aj peggy l capsular 7-17 (Same as: l polysacchar 14:00: Pneumovax H ermann taco type 1 ) vaccine / Refrigerat pneumococca e l capsular polysacchar taco type 10A vaccine / pneumococca l capsular polysacchar taco type 11A vaccine / pneumococca l capsular polysacchar taco type 12F vaccine / pneumococca l capsular polysacchar POLYETHYLEN No Notes: Aj peggy E GLYCOL 7-17 Dissolve l 3350 14:00: in 8 oz of [place] 00 water or juice. (Same as: Miralax) pneumococca No Notes: Aj peggy l capsular 7-17 (Same as: l polysacchar 14:00: Pneumovax H ermann taco type 1 23) vaccine / Refrigerat pneumococca e l capsular polysacchar taco type 10A vaccine / pneumococca l capsular polysacchar taco type 11A vaccine / pneumococca l capsular polysacchar taco type 12F vaccine / pneumococca l capsular polysacchar POLYETHYLEN No Notes: Aj peggy E GLYCOL 7-17 Dissolve l 3350 14:00: in 8 oz of [place] 00 water or juice. (Same as: Miralax) pneumococca No Notes: Aj peggy l capsular 7-17 (Same as: l polysacchar 14:00: Pneumovax H ermann taco type ) vaccine / Refrigerat pneumococca e l capsular polysacchar taco type 10A vaccine / pneumococca l capsular polysacchar taco type 11A vaccine / pneumococca l capsular polysacchar taco type 12F vaccine / pneumococca l capsular polysacchar POLYETHYLEN No Notes: Aj peggy E GLYCOL 7-17 Dissolve l 3350 14:00: in 8 oz of [place] 00 water or juice. (Same as: Miralax) pneumococca No Notes: Aj peggy l capsular 7-17 (Same as: l polysacchar 14:00: Pneumovax H ermann taco type ) vaccine / Refrigerat pneumococca e l capsular polysacchar taco type 10A vaccine / pneumococca l capsular polysacchar taco type 11A vaccine / pneumococca l capsular polysacchar taco type 12F vaccine / pneumococca l capsular polysacchar POLYETHYLEN No Notes: Aj peggy E GLYCOL 7-17 Dissolve l 3350 14:00: in 8 oz of [place] 00 water or juice. (Same as: Miralax) pneumococca No Notes: Aj peggy l capsular 7-17 (Same as: l polysacchar 14:00: Pneumovax H ermann taco type ) vaccine / Refrigerat pneumococca e l capsular polysacchar taco type 10A vaccine / pneumococca l capsular polysacchar taco type 11A vaccine / pneumococca l capsular polysacchar taco type 12F vaccine / pneumococca l capsular polysacchar POLYETHYLEN No Notes: Aj peggy E GLYCOL 7-17 Dissolve l 3350 14:00: in 8 oz of [place] 00 water or juice. (Same as: Miralax) pneumococca No Notes: Aj peggy l capsular 7-17 (Same as: l polysacchar 14:00: Pneumovax H ermann taco type ) vaccine / Refrigerat pneumococca e l capsular polysacchar taco type 10A vaccine / pneumococca l capsular polysacchar taco type 11A vaccine / pneumococca l capsular polysacchar taco type 12F vaccine / pneumococca l capsular polysacchar POLYETHYLEN No Notes: Aj peggy E GLYCOL 7-17 Dissolve l 3350 14:00: in 8 oz of [place] 00 water or juice. (Same as: Miralax) pneumococca No Notes: Aj peggy l capsular 7-17 (Same as: l polysacchar 14:00: Pneumovax H ermann taco type ) vaccine / Refrigerat pneumococca e l capsular polysacchar taco type 10A vaccine / pneumococca l capsular polysacchar taco type 11A vaccine / pneumococca l capsular polysacchar taco type 12F vaccine / pneumococca l capsular polysacchar POLYETHYLEN No Notes: Aj peggy E GLYCOL 7-17 Dissolve l 3350 14:00: in 8 oz of [place] 00 water or juice. (Same as: Miralax) pneumococca No Notes: Aj peggy l capsular 7-17 (Same as: l polysacchar 14:00: Pneumovax H [facility] taco type ) vaccine / Refrigerat pneumococca e l capsular polysacchar taco type 10A vaccine / pneumococca l capsular polysacchar taco type 11A vaccine / pneumococca l capsular polysacchar taco type 12F vaccine / pneumococca l capsular polysacchar POLYETHYLEN No Notes: Aj peggy E GLYCOL 7-17 Dissolve l 3350 14:00: in 8 oz of [place] 00 water or juice. (Same as: Miralax) pneumococca No Notes: Aj peggy l capsular 7-17 (Same as: l polysacchar 14:00: Pneumovax H [facility] taco type ) vaccine / Refrigerat pneumococca e l capsular polysacchar taco type 10A vaccine / pneumococca l capsular polysacchar taco type 11A vaccine / pneumococca l capsular polysacchar taco type 12F vaccine / pneumococca l capsular polysacchar POLYETHYLEN No Notes: Aj peggy E GLYCOL 7-17 Dissolve l 3350 14:00: in 8 oz of [place] 00 water or juice. (Same as: Miralax) pneumococca No Notes: Aj peggy l capsular 7-17 (Same as: l polysacchar 14:00: Pneumovax H ermann taco type ) vaccine / Refrigerat pneumococca e l capsular polysacchar taco type 10A vaccine / pneumococca l capsular polysacchar taco type 11A vaccine / pneumococca l capsular polysacchar taco type 12F vaccine / pneumococca l capsular polysacchar POLYETHYLEN No Notes: Aj peggy E GLYCOL 7-17 Dissolve l 3350 14:00: in 8 oz of [place] 00 water or juice. (Same as: Miralax) pneumococca No Notes: Aj peggy l capsular 7-17 (Same as: l polysacchar 14:00: Pneumovax H [facility] taco type 1 23) vaccine / Refrigerat pneumococca e l capsular polysacchar taco type 10A vaccine / pneumococca l capsular polysacchar taco type 11A vaccine / pneumococca l capsular polysacchar taco type 12F vaccine / pneumococca l capsular polysacchar POLYETHYLEN No Notes: Aj peggy E GLYCOL 7-17 Dissolve l 3350 14:00: in 8 oz of [place] 00 water or juice. (Same as: Miralax) pneumococca No Notes: Aj peggy l capsular 7-17 (Same as: l polysacchar 14:00: Pneumovax H ermann taco type 1 23) vaccine / Refrigerat pneumococca e l capsular polysacchar taco type 10A vaccine / pneumococca l capsular polysacchar taco type 11A vaccine / pneumococca l capsular polysacchar taco type 12F vaccine / pneumococca l capsular polysacchar POLYETHYLEN No Notes: Aj peggy E GLYCOL 7-17 Dissolve l 3350 14:00: in 8 oz of [place] 00 water or juice. (Same as: Miralax) pneumococca No Notes: Ja peggy l capsular 7-17 (Same as: l polysacchar 14:00: Pneumovax H ermann taco type 1 23) vaccine / Refrigerat pneumococca e l capsular polysacchar taco type 10A vaccine / pneumococca l capsular polysacchar taco type 11A vaccine / pneumococca l capsular polysacchar taco type 12F vaccine / pneumococca l capsular polysacchar POLYETHYLEN No Notes: Aj peggy E GLYCOL 7-17 Dissolve l 3350 14:00: in 8 oz of [place] 00 water or juice. (Same as: Miralax) pneumococca No Notes: Aj peggy l capsular 7-17 (Same as: l polysacchar 14:00: Pneumovax H ermann taco type 1 23) vaccine / Refrigerat pneumococca e l capsular polysacchar taco type 10A vaccine / pneumococca l capsular polysacchar taco type 11A vaccine / pneumococca l capsular polysacchar taco type 12F vaccine / pneumococca l capsular polysacchar POLYETHYLEN No Notes: Aj peggy E GLYCOL 7-17 Dissolve l 3350 14:00: in 8 oz of [place] 00 water or juice. (Same as: Miralax) pneumococca No Notes: Aj peggy l capsular 7-17 (Same as: l polysacchar 14:00: Pneumovax H ermann taco type ) vaccine / Refrigerat pneumococca e l capsular polysacchar taco type 10A vaccine / pneumococca l capsular polysacchar taco type 11A vaccine / pneumococca l capsular polysacchar taco type 12F vaccine / pneumococca l capsular polysacchar POLYETHYLEN No Notes: Aj peggy E GLYCOL 7-17 Dissolve l 3350 14:00: in 8 oz of [place] 00 water or juice. (Same as: Miralax) pneumococca No Notes: Aj peggy l capsular 7-17 (Same as: l polysacchar 14:00: Pneumovax H ermann taco type 1 ) vaccine / Refrigerat pneumococca e l capsular polysacchar taco type 10A vaccine / pneumococca l capsular polysacchar taco type 11A vaccine / pneumococca l capsular polysacchar taco type 12F vaccine / pneumococca l capsular polysacchar POLYETHYLEN No Notes: Aj peggy E GLYCOL 7-17 Dissolve l 3350 14:00: in 8 oz of [place] 00 water or juice. (Same as: Miralax) pneumococca No Notes: Aj peggy l capsular 7-17 (Same as: l polysacchar 14:00: Pneumovax H ermann taco type 1 ) vaccine / Refrigerat pneumococca e l capsular polysacchar taco type 10A vaccine / pneumococca l capsular polysacchar taco type 11A vaccine / pneumococca l capsular polysacchar taco type 12F vaccine / pneumococca l capsular polysacchar POLYETHYLEN No Notes: Aj peggy E GLYCOL 7-17 Dissolve l 3350 14:00: in 8 oz of [place] 00 water or juice. (Same as: Miralax) POLYETHYLEN No Notes: Aj peggy E GLYCOL 7-17 Dissolve l 3350 14:00: in 8 oz of [place] 00 water or juice. (Same as: Miralax) pneumococca No Notes: Aj peggy l capsular 7-17 (Same as: l polysacchar 14:00: Pneumovax H ermann taco type 1 23) vaccine / Refrigerat pneumococca e l capsular polysacchar taco type 10A vaccine / pneumococca l capsular polysacchar taco type 11A vaccine / pneumococca l capsular polysacchar taco type 12F vaccine / pneumococca l capsular polysacchar pneumococca No Notes: Aj peggy l capsular 7-17 (Same as: l polysacchar 14:00: Pneumovax H ermann taco type 1 23) vaccine / Refrigerat pneumococca e l capsular polysacchar taco type 10A vaccine / pneumococca l capsular polysacchar taco type 11A vaccine / pneumococca l capsular polysacchar taco type 12F vaccine / pneumococca l capsular polysacchar POLYETHYLEN No Notes: Aj peggy E GLYCOL 7-17 Dissolve l 3350 14:00: in 8 oz of [place] 00 water or juice. (Same as: Miralax) pneumococca No Notes: Aj peggy l capsular 7-17 (Same as: l polysacchar 14:00: Pneumovax H ermann tcao type 1 23) vaccine / Refrigerat pneumococca e l capsular polysacchar taco type 10A vaccine / pneumococca l capsular polysacchar taco type 11A vaccine / pneumococca l capsular polysacchar taco type 12F vaccine / pneumococca l capsular polysacchar POLYETHYLEN No Notes: Aj peggy E GLYCOL 7-17 Dissolve l 3350 14:00: in 8 oz of [place] 00 water or juice. (Same as: Miralax) pneumococca No Notes: Aj peggy l capsular 7-17 (Same as: l polysacchar 14:00: Pneumovax H ermann taco type 1 23) vaccine / Refrigerat pneumococca e l capsular polysacchar taco type 10A vaccine / pneumococca l capsular polysacchar taco type 11A vaccine / pneumococca l capsular polysacchar taco type 12F vaccine / pneumococca l capsular polysacchar POLYETHYLEN No Notes: Aj peggy E GLYCOL 7-17 Dissolve l 3350 14:00: in 8 oz of [place] 00 water or juice. (Same as: Miralax) pneumococca No Notes: Aj peggy l capsular 7-17 (Same as: l polysacchar 14:00: Pneumovax H ermann taco type ) vaccine / Refrigerat pneumococca e l capsular polysacchar taco type 10A vaccine / pneumococca l capsular polysacchar taco type 11A vaccine / pneumococca l capsular polysacchar taco type 12F vaccine / pneumococca l capsular polysacchar POLYETHYLEN No Notes: Aj peggy E GLYCOL 7-17 Dissolve l 3350 14:00: in 8 oz of [place] 00 water or juice. (Same as: Miralax) pneumococca No Notes: Aj peggy l capsular 7-17 (Same as: l polysacchar 14:00: Pneumovax H ermann taco type ) vaccine / Refrigerat pneumococca e l capsular polysacchar taco type 10A vaccine / pneumococca l capsular polysacchar taco type 11A vaccine / pneumococca l capsular polysacchar taco type 12F vaccine / pneumococca l capsular polysacchar POLYETHYLEN No Notes: Aj peggy E GLYCOL 7-17 Dissolve l 3350 14:00: in 8 oz of [place] 00 water or juice. (Same as: Miralax) pneumococca No Notes: Aj peggy l capsular 7-17 (Same as: l polysacchar 14:00: Pneumovax H ermann taco type ) vaccine / Refrigerat pneumococca e l capsular polysacchar taco type 10A vaccine / pneumococca l capsular polysacchar taco type 11A vaccine / pneumococca l capsular polysacchar taco type 12F vaccine / pneumococca l capsular polysacchar POLYETHYLEN No Notes: Aj peggy E GLYCOL 7-17 Dissolve l 3350 14:00: in 8 oz of [place] 00 water or juice. (Same as: Miralax) pneumococca No Notes: Aj peggy l capsular 7-17 (Same as: l polysacchar 14:00: Pneumovax H ermann taco type ) vaccine / Refrigerat pneumococca e l capsular polysacchar taco type 10A vaccine / pneumococca l capsular polysacchar taco type 11A vaccine / pneumococca l capsular polysacchar taco type 12F vaccine / pneumococca l capsular polysacchar POLYETHYLEN No Notes: Ja peggy E GLYCOL 7-17 Dissolve l 3350 14:00: in 8 oz of [place] 00 water or juice. (Same as: Miralax) pneumococca No Notes: Aj peggy l capsular 7-17 (Same as: l polysacchar 14:00: Pneumovax H ermann taco type 1 23) vaccine / Refrigerat pneumococca e l capsular polysacchar taco type 10A vaccine / pneumococca l capsular polysacchar taco type 11A vaccine / pneumococca l capsular polysacchar taco type 12F vaccine / pneumococca l capsular polysacchar POLYETHYLEN No Notes: Aj peggy E GLYCOL 7-17 Dissolve l 3350 14:00: in 8 oz of [place] 00 water or juice. (Same as: Miralax) pneumococca No Notes: Aj peggy l capsular 7-17 (Same as: l polysacchar 14:00: Pneumovax H ermann taco type 1 23) vaccine / Refrigerat pneumococca e l capsular polysacchar taco type 10A vaccine / pneumococca l capsular polysacchar taco type 11A vaccine / pneumococca l capsular polysacchar taco type 12F vaccine / pneumococca l capsular polysacchar POLYETHYLEN No Notes: Aj peggy E GLYCOL 7-17 Dissolve l 3350 14:00: in 8 oz of [place] 00 water or juice. (Same as: Miralax) pneumococca No Notes: Aj peggy l capsular 7-17 (Same as: l polysacchar 14:00: Pneumovax H ermann taco type 1 23) vaccine / Refrigerat pneumococca e l capsular polysacchar taco type 10A vaccine / pneumococca l capsular polysacchar taco type 11A vaccine / pneumococca l capsular polysacchar taco type 12F vaccine / pneumococca l capsular polysacchar POLYETHYLEN No Notes: Aj peggy E GLYCOL 7-17 Dissolve l 3350 14:00: in 8 oz of [place] 00 water or juice. (Same as: Miralax) pneumococca No Notes: Aj peggy l capsular 7-17 (Same as: l polysacchar 14:00: Pneumovax H ermann taco type 1 23) vaccine / Refrigerat pneumococca e l capsular polysacchar taco type 10A vaccine / pneumococca l capsular polysacchar taco type 11A vaccine / pneumococca l capsular polysacchar taco type 12F vaccine / pneumococca l capsular polysacchar POLYETHYLEN No Notes: Aj peggy E GLYCOL 7-17 Dissolve l 3350 14:00: in 8 oz of [place] 00 water or juice. (Same as: Miralax) pneumococca No Notes: Aj peggy l capsular 7-17 (Same as: l polysacchar 14:00: Pneumovax H ermann taco type ) vaccine / Refrigerat pneumococca e l capsular polysacchar taco type 10A vaccine / pneumococca l capsular polysacchar taco type 11A vaccine / pneumococca l capsular polysacchar taco type 12F vaccine / pneumococca l capsular polysacchar POLYETHYLEN No Notes: Aj peggy E GLYCOL 7-17 Dissolve l 3350 14:00: in 8 oz of [place] 00 water or juice. (Same as: Miralax) pneumococca No Notes: Aj peggy l capsular 7-17 (Same as: l polysacchar 14:00: Pneumovax H ermann taco type ) vaccine / Refrigerat pneumococca e l capsular polysacchar taco type 10A vaccine / pneumococca l capsular polysacchar taco type 11A vaccine / pneumococca l capsular polysacchar taco type 12F vaccine / pneumococca l capsular polysacchar POLYETHYLEN No Notes: Aj peggy E GLYCOL 7-17 Dissolve l 3350 14:00: in 8 oz of [place] 00 water or juice. (Same as: Miralax) pneumococca No Notes: Aj peggy l capsular 7-17 (Same as: l polysacchar 14:00: Pneumovax H ermann taco type ) vaccine / Refrigerat pneumococca e l capsular polysacchar taco type 10A vaccine / pneumococca l capsular polysacchar taco type 11A vaccine / pneumococca l capsular polysacchar taco type 12F vaccine / pneumococca l capsular polysacchar POLYETHYLEN No Notes: Aj peggy E GLYCOL 7-17 Dissolve l 3350 14:00: in 8 oz of [place] 00 water or juice. (Same as: Miralax) pneumococca No Notes: Aj peggy l capsular 7-17 (Same as: l polysacchar 14:00: Pneumovax H ermann taco type 1 ) vaccine / Refrigerat pneumococca e l capsular polysacchar taco type 10A vaccine / pneumococca l capsular polysacchar taco type 11A vaccine / pneumococca l capsular polysacchar taco type 12F vaccine / pneumococca l capsular polysacchar POLYETHYLEN No Notes: Aj peggy E GLYCOL 7-17 Dissolve l 3350 14:00: in 8 oz of [place] 00 water or juice. (Same as: Miralax) pneumococca No Notes: Aj peggy l capsular 7-17 (Same as: l polysacchar 14:00: Pneumovax H ermann taco type ) vaccine / Refrigerat pneumococca e l capsular polysacchar taco type 10A vaccine / pneumococca l capsular polysacchar taco type 11A vaccine / pneumococca l capsular polysacchar taco type 12F vaccine / pneumococca l capsular polysacchar POLYETHYLEN No Notes: Aj peggy E GLYCOL 7-17 Dissolve l 3350 14:00: in 8 oz of [place] 00 water or juice. (Same as: Miralax) pneumococca No Notes: Aj peggy l capsular 7-17 (Same as: l polysacchar 14:00: Pneumovax H ermann taco type ) vaccine / Refrigerat pneumococca e l capsular polysacchar taco type 10A vaccine / pneumococca l capsular polysacchar taco type 11A vaccine / pneumococca l capsular polysacchar taco type 12F vaccine / pneumococca l capsular polysacchar POLYETHYLEN No Notes: Aj peggy E GLYCOL 7-17 Dissolve l 3350 14:00: in 8 oz of [place] 00 water or juice. (Same as: Miralax) pneumococca No Notes: Aj peggy l capsular 7-17 (Same as: l polysacchar 14:00: Pneumovax H ermann taco type ) vaccine / Refrigerat pneumococca e l capsular polysacchar taco type 10A vaccine / pneumococca l capsular polysacchar taco type 11A vaccine / pneumococca l capsular polysacchar taco type 12F vaccine / pneumococca l capsular polysacchar POLYETHYLEN No Notes: Aj peggy E GLYCOL 7-17 Dissolve l 3350 14:00: in 8 oz of [place] 00 water or juice. (Same as: Miralax) pneumococca No Notes: Aj peggy l capsular 7-17 (Same as: l polysacchar 14:00: Pneumovax H ermann taco type ) vaccine / Refrigerat pneumococca e l capsular polysacchar taco type 10A vaccine / pneumococca l capsular polysacchar taco type 11A vaccine / pneumococca l capsular polysacchar taco type 12F vaccine / pneumococca l capsular polysacchar POLYETHYLEN No Notes: Aj peggy E GLYCOL 7-17 Dissolve l 3350 14:00: in 8 oz of [place] 00 water or juice. (Same as: Miralax) pneumococca No Notes: Aj peggy l capsular 7-17 (Same as: l polysacchar 14:00: Pneumovax H ermann taco type 1 23) vaccine / Refrigerat pneumococca e l capsular polysacchar taco type 10A vaccine / pneumococca l capsular polysacchar taco type 11A vaccine / pneumococca l capsular polysacchar taco type 12F vaccine / pneumococca l capsular polysacchar POLYETHYLEN No Notes: Aj peggy E GLYCOL 7-17 Dissolve l 3350 14:00: in 8 oz of [place] 00 water or juice. (Same as: Miralax) pneumococca No Notes: Aj peggy l capsular 7-17 (Same as: l polysacchar 14:00: Pneumovax H ermann taco type 1 ) vaccine / Refrigerat pneumococca e l capsular polysacchar taco type 10A vaccine / pneumococca l capsular polysacchar taco type 11A vaccine / pneumococca l capsular polysacchar taco type 12F vaccine / pneumococca l capsular polysacchar Magnesium No Notes: Memori a Sulfate 7-17 WASTE: F/P l 12:19: - Sink; E - [facility] Trash [facility] Magnesium No Notes: Memori a Sulfate 7-17 WASTE: F/P l 12:19: - Sink; E - [facility] Trash Bin Magnesium No Notes: [facility] a Sulfate 7-17 WASTE: F/P l 12:19: - Sink; E - [facility] Trash Bin Magnesium No Notes: Mem[facility] a Sulfate 7-17 WASTE: F/P l 12:19: - Sink; E - [facility] Trash Bin Magnesium No Notes: Memori a Sulfate 7-17 WASTE: F/P l 12:19: - Sink; E [place] - [facility] Trash Bin Magnesium No Notes: Memori a Sulfate 7-17 WASTE: F/P l 12:19: - Sink; E [place] - [facility] Trash Bin Magnesium No Notes: Memori a Sulfate 7-17 WASTE: F/P l 12:19: - Sink; E [place] - [facility] Trash Bin Magnesium No Notes: Memori a Sulfate 7-17 WASTE: F/P l 12:19: - Sink; E [place] - [facility] Trash [facility] Magnesium No Notes: Memori a Sulfate 7-17 WASTE: F/P l 12:19: - Sink; E [place] - [facility] Trash Bin Magnesium No Notes: Memori a Sulfate 7-17 WASTE: F/P l 12:19: - Sink; E [place] - [facility] Trash Bin Magnesium No Notes: Memori a Sulfate 7-17 WASTE: F/P l 12:19: - Sink; E [place] - [facility] Trash Bin Magnesium No Notes: Memori a Sulfate 7-17 WASTE: F/P l 12:19: - Sink; E [place] - [facility] Trash Bin Magnesium No Notes: Memori a Sulfate 7-17 WASTE: F/P l 12:19: - Sink; E [place] - [facility] Trash Bin Magnesium No Notes: Memori a Sulfate 7-17 WASTE: F/P l 12:19: - Sink; E [place] - [facility] Trash Bin Magnesium No Notes: Memori a Sulfate 7-17 WASTE: F/P l 12:19: - Sink; E [place] - [facility] Trash Bin Magnesium No Notes: Memori a Sulfate 7-17 WASTE: F/P l 12:19: - Sink; E [place] - [facility] Trash Bin Magnesium No Notes: Memori a Sulfate 7-17 WASTE: F/P l 12:19: - Sink; E [place] - [facility] Trash Bin Magnesium No Notes: Memori a Sulfate 7-17 WASTE: F/P l 12:19: - Sink; E [place] - [facility] Trash Bin Magnesium No Notes: Memori a Sulfate 7-17 WASTE: F/P l 12:19: - Sink; E [place] 00 - [facility] Trash Bin Magnesium No Notes: Memori a Sulfate 7-17 WASTE: F/P l 12:19: - Sink; E [place] - [facility] Trash Bin Magnesium No Notes: Memori a Sulfate 7-17 WASTE: F/P l 12:19: - Sink; E [place] - [facility] Trash [facility] Magnesium No Notes: Memori a Sulfate 7-17 WASTE: F/P l 12:19: - Sink; E [place] - [facility] Trash Bin Magnesium No Notes: Memori a Sulfate 7-17 WASTE: F/P l 12:19: - Sink; E [place] - [facility] Trash Bin Magnesium No Notes: Memori a Sulfate 7-17 WASTE: F/P l 12:19: - Sink; E [place] - [facility] Trash Bin Magnesium No Notes: Memori a Sulfate 7-17 WASTE: F/P l 12:19: - Sink; E [place] - [facility] Trash Bin Magnesium No Notes: Memori a Sulfate 7-17 WASTE: F/P l 12:19: - Sink; E [place] - [facility] Trash Bin Magnesium No Notes: Memori a Sulfate 7-17 WASTE: F/P l 12:19: - Sink; E [place] - [facility] Trash Bin Magnesium No Notes: Memori a Sulfate 7-17 WASTE: F/P l 12:19: - Sink; E [place] - [facility] Trash Bin Magnesium No Notes: Memori a Sulfate 7-17 WASTE: F/P l 12:19: - Sink; E [place] - [facility] Trash Bin Magnesium No Notes: Memori a Sulfate 7-17 WASTE: F/P l 12:19: - Sink; E [place] - [facility] Trash Bin Magnesium No Notes: Memori a Sulfate 7-17 WASTE: F/P l 12:19: - Sink; E [place] - [facility] Trash Bin Magnesium No Notes: Memori a Sulfate 7-17 WASTE: F/P l 12:19: - Sink; E [place] 00 - [facility] Trash Bin Magnesium No Notes: Memori a Sulfate 7-17 WASTE: F/P l 12:19: - Sink; E [place] - [facility] Trash Bin Magnesium No Notes: Memori a Sulfate 7-17 WASTE: F/P l 12:19: - Sink; E [place] - [facility] Trash Bin Magnesium No Notes: Memori a Sulfate 7-17 WASTE: F/P l 12:19: - Sink; E [place] - [facility] Trash Bin Magnesium No Notes: Memori a Sulfate 7-17 WASTE: F/P l 12:19: - Sink; E [place] - [facility] Trash Bin Magnesium No Notes: Memori a Sulfate 7-17 WASTE: F/P l 12:19: - Sink; E [place] - [facility] Trash Bin Magnesium No Notes: Memori a Sulfate 7-17 WASTE: F/P l 12:19: - Sink; E [place] - [facility] Trash Bin Magnesium No Notes: Memori a Sulfate 7-17 WASTE: F/P l 12:19: - Sink; E [place] - [facility] Trash Bin Magnesium No Notes: Memori a Sulfate 7-17 WASTE: F/P l 12:19: - Sink; E [place] - [facility] Trash Bin Magnesium No Notes: Memori a Sulfate 7-17 WASTE: F/P l 12:19: - Sink; E [place] - [facility] Trash Bin Magnesium No Notes: Memori a Sulfate 7-17 WASTE: F/P l 12:19: - Sink; E [place] - [facility] Trash Bin Magnesium No Notes: Memori a Sulfate 7-17 WASTE: F/P l 12:19: - Sink; E [place] - [facility] Trash Bin Magnesium No Notes: Memori a Sulfate 7-17 WASTE: F/P l 12:19: - Sink; E [place] - [facility] Trash Bin Magnesium No Notes: Memori a Sulfate 7-17 WASTE: F/P l 12:19: - Sink; E [place] - [facility] Trash Bin Magnesium No Notes: Mem[facility] a Sulfate 7-17 WASTE: F/P l 12:19: - Sink; E [place] - Municipal Tra Bin sennosides, No Notes: Aj peggy SKILLED NURSING 7-17 (Same as: l 02:00: [employer]) [place] 00 sennosides, No Notes: Aj peggy SKILLED NURSING 7-17 (Same as: l 02:00: [employer]) [place] 00 sennosides, No Notes: Ja peggy SKILLED NURSING 7-17 (Same as: l 02:00: [employer]) [place] 00 sennosides, No Notes: Aj peggy SKILLED NURSING 7-17 (Same as: l 02:00: [employer]ok[employer]) [place] sennosides, No Notes: Aj peggy SKILLED NURSING 7-17 (Same as: l 02:00: [employer]) [place] sennosides, No Notes: Aj peggy SKILLED NURSING 7-17 (Same as: l 02:00: [employer]) [place] sennosides, No Notes: Aj peggy SKILLED NURSING 7-17 (Same as: l 02:00: [employer]ok[employer]) [place] 00 sennosides, No Notes: Aj peggy SKILLED NURSING 7-17 (Same as: l 02:00: [employer]) [place] sennosides, No Notes: Aj peggy SKILLED NURSING 7-17 (Same as: l 02:00: [employer]ok[employer]) [place] sennosides, No Notes: Aj peggy SKILLED NURSING 7-17 (Same as: l 02:00: [employer]ok[employer]) [place] 00 sennosides, No Notes: Aj peggy SKILLED NURSING 7-17 (Same as: l 02:00: [employer]) [place] 00 sennosides, No Notes: Aj peggy SKILLED NURSING 7-17 (Same as: l 02:00: [employer]ok[employer]) [place] 00 sennosides, No Notes: Aj peggy SKILLED NURSING 7-17 (Same as: l 02:00: [employer]) [place] 00 sennosides, No Notes: Aj peggy SKILLED NURSING 7-17 (Same as: l 02:00: [employer]) [place] 00 sennosides, No Notes: Aj peggy SKILLED NURSING 7-17 (Same as: l 02:00: [employer]ok[employer]) [place] 00 sennosides, No Notes: Aj peggy SKILLED NURSING 7-17 (Same as: l 02:00: [employer]) [place] 00 sennosides, No Notes: Aj peggy SKILLED NURSING 7-17 (Same as: l 02:00: [employer]) [place] 00 sennosides, No Notes: Aj epggy SKILLED NURSING 7-17 (Same as: l 02:00: [employer]) [place] 00 sennosides, No Notes: Aj peggy SKILLED NURSING 7-17 (Same as: l 02:00: Senok[employer]) [place] 00 sennosides, No Notes: Aj peggy SKILLED NURSING 7-17 (Same as: l 02:00: Senokot) [place] 00 sennosides, No Notes: Aj peggy SKILLED NURSING 7-17 (Same as: l 02:00: [employer]) [place] 00 sennosides, No Notes: Aj peggy SKILLED NURSING 7-17 (Same as: l 02:00: [employer]ok[employer]) [place] 00 sennosides, No Notes: Aj peggy SKILLED NURSING 7-17 (Same as: l 02:00: [employer]ok[employer]) [place] 00 sennosides, No Notes: Aj peggy SKILLED NURSING 7-17 (Same as: l 02:00: [employer]) [place] 00 sennosides, No Notes: Aj peggy SKILLED NURSING 7-17 (Same as: l 02:00: [employer]) [place] 00 sennosides, No Notes: Aj peggy SKILLED NURSING 7-17 (Same as: l 02:00: [employer]) [place] 00 sennosides, No Notes: Aj peggy SKILLED NURSING 7-17 (Same as: l 02:00: [employer]) [place] 00 sennosides, No Notes: Aj peggy SKILLED NURSING 7-17 (Same as: l 02:00: Senok[employer]) [place] 00 sennosides, No Notes: Aj peggy SKILLED NURSING 7-17 (Same as: l 02:00: Senokot) [place] 00 sennosides, 2016-0 No Notes: Aj peggy SKILLED NURSING 7-17 (Same as: l 02:00: [employer]ok[employer]) [place] 00 sennosides, No Notes: Aj peggy SKILLED NURSING 7-17 (Same as: l 02:00: [employer]ok[employer]) [place] 00 sennosides, No Notes: Aj peggy SKILLED NURSING 7-17 (Same as: l 02:00: [employer]) [place] 00 sennosides, No Notes: Aj peggy SKILLED NURSING 7-17 (Same as: l 02:00: [employer]) [place] 00 sennosides, No Notes: Aj peggy SKILLED NURSING 7-17 (Same as: l 02:00: [employer]ok[employer]) [place] 00 sennosides, No Notes: Aj peggy SKILLED NURSING 7-17 (Same as: l 02:00: Senok[employer]) [place] 00 sennosides, No Notes: Aj peggy SKILLED NURSING 7-17 (Same as: l 02:00: [employer]ok[employer]) [place] 00 sennosides, No Notes: Aj peggy SKILLED NURSING 7-17 (Same as: l 02:00: [employer]) [place] 00 sennosides, No Notes: Aj peggy SKILLED NURSING 7-17 (Same as: l 02:00: [employer]) [place] 00 sennosides, No Notes: Aj peggy SKILLED NURSING 7-17 (Same as: l 02:00: [employer]) [place] 00 sennosides, No Notes: Aj peggy SKILLED NURSING 7-17 (Same as: l 02:00: [employer]ok[employer]) [place] 00 sennosides, No Notes: Aj peggy SKILLED NURSING 7-17 (Same as: l 02:00: [employer]ok[employer]) [place] 00 sennosides, No Notes: Aj peggy SKILLED NURSING 7-17 (Same as: l 02:00: [employer]ok[employer]) [place] 00 sennosides, No Notes: Aj peggy SKILLED NURSING 7-17 (Same as: l 02:00: Senokot) [place] 00 sennosides, No Notes: Aj peggy SKILLED NURSING 7-17 (Same as: l 02:00: [employer]) [place] 00 sennosides, No Notes: Aj peggy SKILLED NURSING 7-17 (Same as: l 02:00: [employer]ok[employer]) [place] 00 sennosides, No Notes: Aj peggy SKILLED NURSING 7-17 (Same as: l 02:00: [employer]ok[employer]) [place] 00 Docusate No Notes: Memoria 7-16 (Same as: l 22:00: Colace) [place] 00 (Do Not Crush) Docusate No Notes: Memoria 7-16 (Same as: l 22:00: Colace) [place] 00 (Do Not Crush) Docusate No Notes: Memoria 7-16 (Same as: l 22:00: Colace) [place] 00 (Do Not Crush) Docusate No Notes: Memoria 7-16 (Same as: l 22:00: Colace) [place] 00 (Do Not Crush) Docusate No Notes: Memoria 7-16 (Same as: l 22:00: Colace) [place] 00 (Do Not Crush) Docusate No Notes: Memoria 7-16 (Same as: l 22:00: Colace) [place] 00 (Do Not Crush) Docusate No Notes: Memoria 7-16 (Same as: l 22:00: Colace) [place] 00 (Do Not Crush) Docusate No Notes: Memoria 7-16 (Same as: l 22:00: Colace) [place] 00 (Do Not Crush) Docusate No Notes: Memoria 7-16 (Same as: l 22:00: Colace) [place] 00 (Do Not Crush) Docusate No Notes: Memoria 7-16 (Same as: l 22:00: Colace) [place] 00 (Do Not Crush) Docusate No Notes: Memoria 7-16 (Same as: l 22:00: Colace) [place] 00 (Do Not Crush) Docusate No Notes: Memoria 7-16 (Same as: l 22:00: Colace) [place] 00 (Do Not Crush) Docusate No Notes: Memoria 7-16 (Same as: l 22:00: Colace) [place] 00 (Do Not Crush) Docusate No Notes: Memoria 7-16 (Same as: l 22:00: Colace) [place] 00 (Do Not Crush) Docusate No Notes: Memoria 7-16 (Same as: l 22:00: Colace) [place] 00 (Do Not Crush) Docusate No Notes: Memoria 7-16 (Same as: l 22:00: Colace) [place] 00 (Do Not Crush) Docusate No Notes: Memoria 7-16 (Same as: l 22:00: Colace) [place] 00 (Do Not Crush) Docusate No Notes: Memoria 7-16 (Same as: l 22:00: Colace) [place] 00 (Do Not Crush) Docusate No Notes: Memoria 7-16 (Same as: l 22:00: Colace) [place] 00 (Do Not Crush) Docusate No Notes: Memoria 7-16 (Same as: l 22:00: Colace) [place] 00 (Do Not Crush) Docusate No Notes: Memoria 7-16 (Same as: l 22:00: Colace) [place] 00 (Do Not Crush) Docusate No Notes: Memoria 7-16 (Same as: l 22:00: Colace) [place] 00 (Do Not Crush) Docusate No Notes: Memoria 7-16 (Same as: l 22:00: Colace) [place] 00 (Do Not Crush) Docusate No Notes: Memoria 7-16 (Same as: l 22:00: Colace) [place] 00 (Do Not Crush) Docusate No Notes: Memoria 7-16 (Same as: l 22:00: Colace) [place] 00 (Do Not Crush) Docusate No Notes: Memoria 7-16 (Same as: l 22:00: Colace) [place] 00 (Do Not Crush) Docusate No Notes: Memoria 7-16 (Same as: l 22:00: Colace) [place] 00 (Do Not Crush) Docusate No Notes: Memoria 7-16 (Same as: l 22:00: Colace) [place] 00 (Do Not Crush) Docusate No Notes: Memoria 7-16 (Same as: l 22:00: Colace) [place] 00 (Do Not Crush) Docusate No Notes: Memoria 7-16 (Same as: l 22:00: Colace) [place] 00 (Do Not Crush) Docusate No Notes: Memoria 7-16 (Same as: l 22:00: Colace) [place] 00 (Do Not Crush) Docusate No Notes: Memoria 7-16 (Same as: l 22:00: Colace) [place] 00 (Do Not Crush) Docusate No Notes: Memoria 7-16 (Same as: l 22:00: Colace) [place] 00 (Do Not Crush) Docusate No Notes: Memoria 7-16 (Same as: l 22:00: Colace) [place] 00 (Do Not Crush) Docusate No Notes: Memoria 7-16 (Same as: l 22:00: Colace) [place] 00 (Do Not Crush) Docusate No Notes: Memoria 7-16 (Same as: l 22:00: Colace) [place] 00 (Do Not Crush) Docusate No Notes: Memoria 7-16 (Same as: l 22:00: Colace) [place] 00 (Do Not Crush) Docusate No Notes: Memoria 7-16 (Same as: l 22:00: Colace) [place] 00 (Do Not Crush) Docusate No Notes: Memoria 7-16 (Same as: l 22:00: Colace) [place] 00 (Do Not Crush) Docusate No Notes: Memoria 7-16 (Same as: l 22:00: Colace) [place] 00 (Do Not Crush) Docusate No Notes: Memoria 7-16 (Same as: l 22:00: Colace) [place] 00 (Do Not Crush) Docusate No Notes: Memoria 7-16 (Same as: l 22:00: Colace) [place] 00 (Do Not Crush) Docusate No Notes: Memoria 7-16 (Same as: l 22:00: Colace) [place] 00 (Do Not Crush) Docusate No Notes: Memoria 7-16 (Same as: l 22:00: Colace) [place] 00 (Do Not Crush) Docusate No Notes: Memoria 7-16 (Same as: l 22:00: Colace) [place] 00 (Do Not Crush) Docusate No Notes: Memoria 7-16 (Same as: l 22:00: Colace) [place] 00 (Do Not Crush) Dilaudid No Notes: [facility]oria 7-16 Same as: l 20:05: Dilaudid [place] 00 Dilaudid No Notes: Memoria 7-16 Same as: l 20:05: Dilaudid [place] 00 Dilaudid 2016- No Notes: [facility] 7-16 Same as: l 20:05: Dilaudid [place] 00 Dilaudid 2016- No Notes: [facility]oria 7-16 Same as: l 20:05: Dilaudid [place] 00 Dilaudid 2016- No Notes: [facility]oria 7-16 Same as: l 20:05: Dilaudid [place] 00 Dilaudid 2016- No Notes: [facility]oria 7-16 Same as: l 20:05: Dilaudid [place] 00 Dilaudid 2016- No Notes: [facility]oria 7-16 Same as: l 20:05: Dilaudid [place] 00 Dilaudid 2016-0 No Notes: [facility]oria 7-16 Same as: l 20:05: Dilaudid [place] 00 Dilaudid 2016-0 No Notes: [facility] 7-16 Same as: l 20:05: Dilaudid [place] 00 Dilaudid 2016-0 No Notes: [facility]oria 7-16 Same as: l 20:05: Dilaudid [place] 00 Dilaudid 2015- No Notes: [facility]oria 7-16 Same as: l 20:05: Dilaudid [place] 00 Dilaudid 2015-0 No Notes: [facility] 7-16 Same as: l 20:05: Dilaudid [place] 00 Dilaudid 2016-0 No Notes: [facility]oria 7-16 Same as: l 20:05: Dilaudid [place] 00 Dilaudid 2016-0 No Notes: [facility] 7-16 Same as: l 20:05: Dilaudid [place] 00 Dilaudid 2016-0 No Notes: [facility]oria 7-16 Same as: l 20:05: Dilaudid [place] 00 Dilaudid 2016-0 No Notes: [facility]oria 7-16 Same as: l 20:05: Dilaudid [place] 00 Dilaudid 2016-0 No Notes: [facility] 7-16 Same as: l 20:05: Dilaudid [place] 00 Dilaudid 2016- No Notes: [facility]oria 7-16 Same as: l 20:05: Dilaudid [place] Dilaudid 2016-0 No Notes: [facility] 7-16 Same as: l 20:05: Dilaudid [place] 00 Dilaudid 2016- No Notes: [facility]oria 7-16 Same as: l 20:05: Dilaudid [place] 00 Dilaudid 2016- No Notes: [facility]oria 7-16 Same as: l 20:05: Dilaudid [place] 00 Dilaudid 2016-0 No Notes: [facility]oria 7-16 Same as: l 20:05: Dilaudid [place] 00 Dilaudid 2016-0 No Notes: [facility]oria 7-16 Same as: l 20:05: Dilaudid [place] 00 Dilaudid 2016- No Notes: [facility]oria 7-16 Same as: l 20:05: Dilaudid [place] 00 Dilaudid 2016-0 No Notes: [facility]oria 7-16 Same as: l 20:05: Dilaudid [place] 00 Dilaudid 2016-0 No Notes: [facility] 7-16 Same as: l 20:05: Dilaudid [place] 00 Dilaudid 2016-0 No Notes: [facility]oria 7-16 Same as: l 20:05: Dilaudid [place] 00 Dilaudid 2016-0 No Notes: [facility]oria 7-16 Same as: l 20:05: Dilaudid [place] 00 Dilaudid 2016-0 No Notes: [facility] 7-16 Same as: l 20:05: Dilaudid [place] 00 Dilaudid 2016-0 No Notes: [facility] 7-16 Same as: l 20:05: Dilaudid [place] 00 Dilaudid 2016- No Notes: [facility] 7-16 Same as: l 20:05: Dilaudid [place] 00 Dilaudid 2016- No Notes: [facility]oria 7-16 Same as: l 20:05: Dilaudid [place] 00 Dilaudid 2016 No Notes: [facility]oria 7-16 Same as: l 20:05: Dilaudid [place] 00 Dilaudid 2016 No Notes: [facility]oria 7-16 Same as: l 20:05: Dilaudid [place] 00 Dilaudid 2016 No Notes: [facility]oria 7-16 Same as: l 20:05: Dilaudid [place] Dilaudid 2016 No Notes: [facility]oria 7-16 Same as: l 20:05: Dilaudid [place] 00 Dilaudid 2016 No Notes: [facility] 7-16 Same as: l 20:05: Dilaudid [place] Dilaudid No Notes: [facility] 7-16 Same as: l 20:05: Dilaudid [place] 00 Dilaudid 2016- No Notes: [facility] 7-16 Same as: l 20:05: Dilaudid [place] 00 Dilaudid 2016 No Notes: [facility]oria 7-16 Same as: l 20:05: Dilaudid [place] 00 Dilaudid 2016 No Notes: [facility]oria 7-16 Same as: l 20:05: Dilaudid [place] 00 Dilaudid 2016 No Notes: [facility]oria 7-16 Same as: l 20:05: Dilaudid [place] 00 Dilaudid 2016 No Notes: [facility]oria 7-16 Same as: l 20:05: Dilaudid [place] 00 Dilaudid No Notes: [facility]oria 7-16 Same as: l 20:05: Dilaudid [place] 00 Dilaudid 2016 No Notes: [facility]oria 7-16 Same as: l 20:05: Dilaudid [place] 00 Dilaudid 2016- No Notes: [facility]oria 7-16 Same as: l 20:05: Dilaudid [place] 00 carvedilol No 25 mg, PO, M emoria 7-16 BID, 0 l 17:39: Refill(s) [place] 00 Metformin 0 No 500 mg, Memor ia 7-16 PO, BID, 0 l 17:39: Refill(s) carvedilol 2015-0 No 25 mg, PO, M emoria 7-16 BID, 0 l 17:39: Refill(s) [place] 00 Metformin 2015-0 No 500 mg, Memor ia 7-16 PO, BID, 0 l 17:39: Refill(s) [place] 00 carvedilol 2015-0 No 25 mg, PO, M emoria 7-16 BID, 0 l 17:39: Refill(s) [place] 00 Metformin 2015-0 No 500 mg, Memor ia 7-16 PO, BID, 0 l 17:39: Refill(s) carvedilol 2015-0 No 25 mg, PO, M emoria 7-16 BID, 0 l 17:39: Refill(s) [place] 00 Metformin 0 No 500 mg, Memor ia 7-16 PO, BID, 0 l 17:39: Refill(s) carvedilol 0 No 25 mg, PO, M emoria 7-16 BID, 0 l 17:39: Refill(s) [place] 00 Metformin 0 No 500 mg, Memor ia 7-16 PO, BID, 0 l 17:39: Refill(s) carvedilol 2015-0 No 25 mg, PO, M emoria 7-16 BID, 0 l 17:39: Refill(s) [place] 00 Metformin 0 No 500 mg, Memor ia 7-16 PO, BID, 0 l 17:39: Refill(s) [place] 00 carvedilol 0 No 25 mg, PO, M emoria 7-16 BID, 0 l 17:39: Refill(s) Metformin 2015-0 No 500 mg, Memor ia 7-16 PO, BID, 0 l 17:39: Refill(s) carvedilol 2015-0 No 25 mg, PO, M emoria 7-16 BID, 0 l 17:39: Refill(s) [place] 00 Metformin 2015-0 No 500 mg, Memor ia 7-16 PO, BID, 0 l 17:39: Refill(s) [place] 00 carvedilol 0 No 25 mg, PO, M emoria 7-16 BID, 0 l 17:39: Refill(s) [place] 00 Metformin 0 No 500 mg, Memor ia 7-16 PO, BID, 0 l 17:39: Refill(s) [place] 00 carvedilol 0 No 25 mg, PO, M emoria 7-16 BID, 0 l 17:39: Refill(s) [place] 00 Metformin 0 No 500 mg, Memor ia 7-16 PO, BID, 0 l 17:39: Refill(s) [place] 00 carvedilol 0 No 25 mg, PO, M emoria 7-16 BID, 0 l 17:39: Refill(s) [place] 00 Metformin 0 No 500 mg, Memor ia 7-16 PO, BID, 0 l 17:39: Refill(s) [place] 00 carvedilol 0 No 25 mg, PO, M emoria 7-16 BID, 0 l 17:39: Refill(s) [place] 00 Metformin 0 No 500 mg, Memor ia 7-16 PO, BID, 0 l 17:39: Refill(s) carvedilol 0 No 25 mg, PO, M emoria 7-16 BID, 0 l 17:39: Refill(s) [place] 00 Metformin 0 No 500 mg, Memor ia 7-16 PO, BID, 0 l 17:39: Refill(s) [place] 00 carvedilol 0 No 25 mg, PO, M emoria 7-16 BID, 0 l 17:39: Refill(s) [place] 00 Metformin 0 No 500 mg, Memor ia 7-16 PO, BID, 0 l 17:39: Refill(s) carvedilol 0 No 25 mg, PO, M emoria 7-16 BID, 0 l 17:39: Refill(s) [place] 00 Metformin 0 No 500 mg, Memor ia 7-16 PO, BID, 0 l 17:39: Refill(s) carvedilol 0 No 25 mg, PO, M emoria 7-16 BID, 0 l 17:39: Refill(s) [place] 00 Metformin 0 No 500 mg, Memor ia 7-16 PO, BID, 0 l 17:39: Refill(s) carvedilol 0 No 25 mg, PO, M emoria 7-16 BID, 0 l 17:39: Refill(s) [place] 00 Metformin 0 No 500 mg, Memor ia 7-16 PO, BID, 0 l 17:39: Refill(s) [place] 00 carvedilol 0 No 25 mg, PO, M emoria 7-16 BID, 0 l 17:39: Refill(s) [place] 00 Metformin 0 No 500 mg, Memor ia 7-16 PO, BID, 0 l 17:39: Refill(s) [place] 00 carvedilol 0 No 25 mg, PO, M emoria 7-16 BID, 0 l 17:39: Refill(s) [place] 00 Metformin 0 No 500 mg, Mem[facility] ia 7-16 PO, BID, 0 l 17:39: Refill(s) [place] 00 carvedilol 0 No 25 mg, PO, M emoria 7-16 BID, 0 l 17:39: Refill(s) [place] 00 Metformin 0 No 500 mg, Memor ia 7-16 PO, BID, 0 l 17:39: Refill(s) [place] 00 carvedilol 0 No 25 mg, PO, M emoria 7-16 BID, 0 l 17:39: Refill(s) [place] 00 Metformin 0 No 500 mg, Mem[facility] ia 7-16 PO, BID, 0 l 17:39: Refill(s) [place] 00 carvedilol 0 No 25 mg, PO, M emoria 7-16 BID, 0 l 17:39: Refill(s) [place] 00 Metformin 0 No 500 mg, Mem[facility] ia 7-16 PO, BID, 0 l 17:39: Refill(s) [place] 00 carvedilol 0 No 25 mg, PO, M emoria 7-16 BID, 0 l 17:39: Refill(s) [place] 00 Metformin 0 No 500 mg, Memor ia 7-16 PO, BID, 0 l 17:39: Refill(s) carvedilol 0 No 25 mg, PO, M emoria 7-16 BID, 0 l 17:39: Refill(s) [place] 00 Metformin 0 No 500 mg, Memor ia 7-16 PO, BID, 0 l 17:39: Refill(s) carvedilol 0 No 25 mg, PO, M emoria 7-16 BID, 0 l 17:39: Refill(s) [place] 00 Metformin 0 No 500 mg, Mem[facility] 7-16 PO, BID, 0 l 17:39: Refill(s) carvedilol 0 No 25 mg, PO, M emoria 7-16 BID, 0 l 17:39: Refill(s) [place] 00 Metformin 0 No 500 mg, [facility] ia 7-16 PO, BID, 0 l 17:39: Refill(s) carvedilol 0 No 25 mg, PO, M emoria 7-16 BID, 0 l 17:39: Refill(s) [place] 00 Metformin 0 No 500 mg, Mem[facility] ia 7-16 PO, BID, 0 l 17:39: Refill(s) carvedilol 0 No 25 mg, PO, M emoria 7-16 BID, 0 l 17:39: Refill(s) carvedilol 0 No 25 mg, PO, M emoria 7-16 BID, 0 l 17:39: Refill(s) [place] 00 Metformin 0 No 500 mg, [facility] 7-16 PO, BID, 0 l 17:39: Refill(s) [place] 00 Metformin 0 No 500 mg, [facility] ia 7-16 PO, BID, 0 l 17:39: Refill(s) carvedilol 0 No 25 mg, PO, M emoria 7-16 BID, 0 l 17:39: Refill(s) [place] 00 Metformin 0 No 500 mg, Mem[facility] ia 7-16 PO, BID, 0 l 17:39: Refill(s) [place] 00 carvedilol 0 No 25 mg, PO, M emoria 7-16 BID, 0 l 17:39: Refill(s) [place] 00 Metformin 0 No 500 mg, [facility] 7-16 PO, BID, 0 l 17:39: Refill(s) [place] 00 carvedilol 0 No 25 mg, PO, M emoria 7-16 BID, 0 l 17:39: Refill(s) [place] 00 Metformin 2015-0 No 500 mg, [facility] 7-16 PO, BID, 0 l 17:39: Refill(s) [place] 00 carvedilol 0 No 25 mg, PO, M emoria 7-16 BID, 0 l 17:39: Refill(s) [place] 00 Metformin 0 No 500 mg, Mem[facility] ia 7-16 PO, BID, 0 l 17:39: Refill(s) carvedilol 0 No 25 mg, PO, M emoria 7-16 BID, 0 l 17:39: Refill(s) [place] 00 Metformin 0 No 500 mg, [facility] ia 7-16 PO, BID, 0 l 17:39: Refill(s) carvedilol 0 No 25 mg, PO, M emoria 7-16 BID, 0 l 17:39: Refill(s) [place] 00 Metformin 0 No 500 mg, [facility] ia 7-16 PO, BID, 0 l 17:39: Refill(s) carvedilol 0 No 25 mg, PO, M emoria 7-16 BID, 0 l 17:39: Refill(s) [place] 00 Metformin 0 No 500 mg, [facility] 7-16 PO, BID, 0 l 17:39: Refill(s) carvedilol 2015-0 No 25 mg, PO, M emoria 7-16 BID, 0 l 17:39: Refill(s) [place] 00 Metformin 0 No 500 mg, [facility] 7-16 PO, BID, 0 l 17:39: Refill(s) carvedilol 0 No 25 mg, PO, M emoria 7-16 BID, 0 l 17:39: Refill(s) [place] 00 Metformin 0 No 500 mg, Mem[facility] ia 7-16 PO, BID, 0 l 17:39: Refill(s) carvedilol 0 No 25 mg, PO, M emoria 7-16 BID, 0 l 17:39: Refill(s) [place] 00 Metformin 0 No 500 mg, [facility] 7-16 PO, BID, 0 l 17:39: Refill(s) [place] 00 carvedilol 0 No 25 mg, PO, M emoria 7-16 BID, 0 l 17:39: Refill(s) [place] 00 Metformin 0 No 500 mg, [facility] 7-16 PO, BID, 0 l 17:39: Refill(s) [place] 00 carvedilol 0 No 25 mg, PO, M emoria 7-16 BID, 0 l 17:39: Refill(s) [place] 00 Metformin 0 No 500 mg, [facility] 7-16 PO, BID, 0 l 17:39: Refill(s) [place] 00 carvedilol 0 No 25 mg, PO, M emoria 7-16 BID, 0 l 17:39: Refill(s) [place] 00 Metformin 0 No 500 mg, [facility] 7-16 PO, BID, 0 l 17:39: Refill(s) [place] 00 carvedilol 0 No 25 mg, PO, M emoria 7-16 BID, 0 l 17:39: Refill(s) [place] 00 Metformin 0 No 500 mg, Mem[facility] ia 7-16 PO, BID, 0 l 17:39: Refill(s) [place] 00 carvedilol 0 No 25 mg, PO, M emoria 7-16 BID, 0 l 17:39: Refill(s) [place] 00 Metformin 0 No 500 mg, Mem[facility] ia 7-16 PO, BID, 0 l 17:39: Refill(s) carvedilol 0 No 25 mg, PO, M emoria 7-16 BID, 0 l 17:39: Refill(s) [place] 00 Metformin 2016-0 No 500 mg, [facility] 7-16 PO, BID, 0 l 17:39: Refill(s) carvedilol No 25 mg, PO, M emoria 7-16 BID, 0 l 17:39: Refill(s) Metformin No 500 mg, [facility] 7-16 PO, BID, 0 l 17:39: Refill(s) Acetaminoph No Notes: Max [facility] en 7-16 acetaminop l 17:00: hen 4000 [place] 00 mg/day (4 gm/day). (Same as: Tylenol Extra Strength) Tramadol No Notes: Not Mem oria 7-16 to exceed l 17:00: 400mg/day. [place] 00 (Same As: Ultram) pregabalin No Notes: [facility] ia 7-16 (Same as: l 17:00: Lyrica) Acetaminoph No Notes: Max [facility] en 7-16 acetaminop l 17:00: hen 4000 [place] 00 mg/day (4 gm/day). (Same as: Tylenol Extra Strength) Tramadol No Notes: Not Mem [facility] 7-16 to exceed l 17:00: 400mg/day. [place] 00 (Same As: Ultram) pregabalin No Notes: [facility] ia 7-16 (Same as: l 17:00: Lyrica) Acetaminoph No Notes: Max [facility] en 7-16 acetaminop l 17:00: hen 4000 [place] 00 mg/day (4 gm/day). (Same as: Tylenol Extra Strength) Tramadol No Notes: Not Mem o[facility] 7-16 to exceed l 17:00: 400mg/day. [place] 00 (Same As: Ultram) pregabalin No Notes: [facility]or ia 7-16 (Same as: l 17:00: Lyrica) Acetaminoph No Notes: Max [facility] en 7-16 acetaminop l 17:00: hen 4000 [place] 00 mg/day (4 gm/day). (Same as: Tylenol Extra Strength) Tramadol No Notes: Not Mem o[facility] 7-16 to exceed l 17:00: 400mg/day. [place] 00 (Same As: Ultram) pregabalin No Notes: [facility]or ia 7-16 (Same as: l 17:00: Lyrica) [place] Acetaminoph No Notes: Max [facility] en 7-16 acetaminop l 17:00: hen 4000 [place] 00 mg/day (4 gm/day). (Same as: Tylenol Extra Strength) Tramadol No Notes: Not Mem o[facility] 7-16 to exceed l 17:00: 400mg/day. [place] 00 (Same As: Ultram) pregabalin No Notes: [facility]or ia 7-16 (Same as: l 17:00: Lyrica) [place] Acetaminoph No Notes: Max [facility] en 7-16 acetaminop l 17:00: hen 4000 [place] 00 mg/day (4 gm/day). (Same as: Tylenol Extra Strength) Tramadol No Notes: Not Mem [facility] 7-16 to exceed l 17:00: 400mg/day. [place] 00 (Same As: Ultram) pregabalin No Notes: [facility] ia 7-16 (Same as: l 17:00: Lyrica) [place] 00 Acetaminoph No Notes: Max [facility] en 7-16 acetaminop l 17:00: hen 4000 [place] 00 mg/day (4 gm/day). (Same as: Tylenol Extra Strength) Tramadol No Notes: Not Mem [facility] 7-16 to exceed l 17:00: 400mg/day. [place] 00 (Same As: Ultram) pregabalin No Notes: [facility] ia 7-16 (Same as: l 17:00: Lyrica) [place] 00 Acetaminoph No Notes: Max [facility] en 7-16 acetaminop l 17:00: hen 4000 [place] 00 mg/day (4 gm/day). (Same as: Tylenol Extra Strength) Tramadol No Notes: Not Mem [facility] 7-16 to exceed l 17:00: 400mg/day. [place] 00 (Same As: Ultram) pregabalin 2016-0 No Notes: [facility]or ia 7-16 (Same as: l 17:00: Lyrica) [place] Acetaminoph No Notes: Max [facility] en 7-16 acetaminop l 17:00: hen 4000 [place] 00 mg/day (4 gm/day). (Same as: Tylenol Extra Strength) Tramadol No Notes: Not Mem [facility] 7-16 to exceed l 17:00: 400mg/day. [place] 00 (Same As: Ultram) pregabalin No Notes: Memor ia 7-16 (Same as: l 17:00: Lyrica) [place] Acetaminoph No Notes: Max [facility] en 7-16 acetaminop l 17:00: hen 4000 [place] 00 mg/day (4 gm/day). (Same as: Tylenol Extra Strength) Tramadol No Notes: Not Mem [facility] 7-16 to exceed l 17:00: 400mg/day. [place] 00 (Same As: Ultram) pregabalin No Notes: Memor ia 7-16 (Same as: l 17:00: Lyrica) [place] Acetaminoph No Notes: Max [facility] en 7-16 acetaminop l 17:00: hen 4000 [place] 00 mg/day (4 gm/day). (Same as: Tylenol Extra Strength) Tramadol No Notes: Not Mem oria 7-16 to exceed l 17:00: 400mg/day. [place] 00 (Same As: Ultram) pregabalin No Notes: [facility]or ia 7-16 (Same as: l 17:00: Lyrica) [place] Acetaminoph No Notes: Max [facility] en 7-16 acetaminop l 17:00: hen 4000 [place] 00 mg/day (4 gm/day). (Same as: Tylenol Extra Strength) Tramadol No Notes: Not Mem [facility] 7-16 to exceed l 17:00: 400mg/day. [place] 00 (Same As: Ultram) pregabalin No Notes: [facility]or ia 7-16 (Same as: l 17:00: Lyrica) [place] Acetaminoph No Notes: Max [facility] en 7-16 acetaminop l 17:00: hen 4000 [place] 00 mg/day (4 gm/day). (Same as: Tylenol Extra Strength) Tramadol No Notes: Not Mem [facility]ria 7-16 to exceed l 17:00: 400mg/day. [place] 00 (Same As: Ultram) pregabalin No Notes: [facility]or ia 7-16 (Same as: l 17:00: Lyrica) [place] Acetaminoph No Notes: Max [facility] en 7-16 acetaminop l 17:00: hen 4000 [place] 00 mg/day (4 gm/day). (Same as: Tylenol Extra Strength) Tramadol No Notes: Not Mem [facility] 7-16 to exceed l 17:00: 400mg/day. [place] 00 (Same As: Ultram) pregabalin No Notes: Memor ia 7-16 (Same as: l 17:00: Lyrica) [place] Acetaminoph No Notes: Max [facility] en 7-16 acetaminop l 17:00: hen 4000 [place] 00 mg/day (4 gm/day). (Same as: Tylenol Extra Strength) Tramadol No Notes: Not Mem [facility] 7-16 to exceed l 17:00: 400mg/day. [place] 00 (Same As: Ultram) pregabalin No Notes: [facility]or ia 7-16 (Same as: l 17:00: Lyrica) [place] Acetaminoph No Notes: Max [facility] en 7-16 acetaminop l 17:00: hen 4000 [place] 00 mg/day (4 gm/day). (Same as: Tylenol Extra Strength) Tramadol No Notes: Not Mem [facility] 7-16 to exceed l 17:00: 400mg/day. [place] 00 (Same As: Ultram) pregabalin No Notes: [facility] ia 7-16 (Same as: l 17:00: Lyrica) [place] Acetaminoph No Notes: Max [facility] en 7-16 acetaminop l 17:00: hen 4000 [place] 00 mg/day (4 gm/day). (Same as: Tylenol Extra Strength) Tramadol No Notes: Not Mem [facility] 7-16 to exceed l 17:00: 400mg/day. [place] 00 (Same As: Ultram) pregabalin No Notes: [facility] ia 7-16 (Same as: l 17:00: Lyrica) [place] Acetaminoph No Notes: Max [facility] en 7-16 acetaminop l 17:00: hen 4000 [place] 00 mg/day (4 gm/day). (Same as: Tylenol Extra Strength) Tramadol No Notes: Not Mem [facility] 7-16 to exceed l 17:00: 400mg/day. [place] 00 (Same As: Ultram) pregabalin No Notes: [facility]or ia 7-16 (Same as: l 17:00: Lyrica) [place] Acetaminoph No Notes: Max [facility] en 7-16 acetaminop l 17:00: hen 4000 [place] 00 mg/day (4 gm/day). (Same as: Tylenol Extra Strength) Tramadol No Notes: Not Mem [facility] 7-16 to exceed l 17:00: 400mg/day. [place] 00 (Same As: Ultram) pregabalin No Notes: [facility] ia 7-16 (Same as: l 17:00: Lyrica) [place] Acetaminoph No Notes: Max [facility] en 7-16 acetaminop l 17:00: hen 4000 [place] 00 mg/day (4 gm/day). (Same as: Tylenol Extra Strength) Tramadol No Notes: Not Mem [facility] 7-16 to exceed l 17:00: 400mg/day. [place] 00 (Same As: Ultram) pregabalin No Notes: Memor ia 7-16 (Same as: l 17:00: Lyrica) [place] Acetaminoph No Notes: Max [facility] en 7-16 acetaminop l 17:00: hen 4000 [place] 00 mg/day (4 gm/day). (Same as: Tylenol Extra Strength) Tramadol No Notes: Not Mem [facility] 7-16 to exceed l 17:00: 400mg/day. [place] 00 (Same As: Ultram) pregabalin 0 No Notes: [facility]or ia 7-16 (Same as: l 17:00: Lyrica) [place] Acetaminoph No Notes: Max [facility] en 7-16 acetaminop l 17:00: hen 4000 [place] 00 mg/day (4 gm/day). (Same as: Tylenol Extra Strength) Tramadol No Notes: Not Mem [facility] 7-16 to exceed l 17:00: 400mg/day. [place] 00 (Same As: Ultram) pregabalin No Notes: [facility] ia 7-16 (Same as: l 17:00: Lyrica) [place] Acetaminoph No Notes: Max [facility] en 7-16 acetaminop l 17:00: hen 4000 [place] 00 mg/day (4 gm/day). (Same as: Tylenol Extra Strength) Tramadol No Notes: Not Mem [facility] 7-16 to exceed l 17:00: 400mg/day. [place] 00 (Same As: Ultram) pregabalin No Notes: [facility] ia 7-16 (Same as: l 17:00: Lyrica) [place] Acetaminoph No Notes: Max [facility] en 7-16 acetaminop l 17:00: hen 4000 [place] 00 mg/day (4 gm/day). (Same as: Tylenol Extra Strength) Tramadol No Notes: Not Mem [facility] 7-16 to exceed l 17:00: 400mg/day. [place] 00 (Same As: Ultram) pregabalin 0 No Notes: [facility] ia 7-16 (Same as: l 17:00: Lyrica) [place] Acetaminoph No Notes: Max [facility] en 7-16 acetaminop l 17:00: hen 4000 [place] 00 mg/day (4 gm/day). (Same as: Tylenol Extra Strength) Tramadol No Notes: Not Mem [facility] 7-16 to exceed l 17:00: 400mg/day. [place] 00 (Same As: Ultram) pregabalin 0 No Notes: [facility] ia 7-16 (Same as: l 17:00: Lyrica) [place] Acetaminoph No Notes: Max [facility] en 7-16 acetaminop l 17:00: hen 4000 [place] 00 mg/day (4 gm/day). (Same as: Tylenol Extra Strength) Tramadol No Notes: Not Mem [facility] 7-16 to exceed l 17:00: 400mg/day. [place] 00 (Same As: Ultram) pregabalin No Notes: [facility] ia 7-16 (Same as: l 17:00: Lyrica) [place] Acetaminoph No Notes: Max [facility] en 7-16 acetaminop l 17:00: hen 4000 [place] 00 mg/day (4 gm/day). (Same as: Tylenol Extra Strength) Tramadol No Notes: Not Mem [facility] 7-16 to exceed l 17:00: 400mg/day. [place] 00 (Same As: Ultram) pregabalin No Notes: [facility] ia 7-16 (Same as: l 17:00: Lyrica) [place] Acetaminoph No Notes: Max [facility] en 7-16 acetaminop l 17:00: hen 4000 [place] 00 mg/day (4 gm/day). (Same as: Tylenol Extra Strength) Tramadol No Notes: Not Mem [facility] 7-16 to exceed l 17:00: 400mg/day. [place] 00 (Same As: Ultram) pregabalin No Notes: [facility] ia 7-16 (Same as: l 17:00: Lyrica) [place] Acetaminoph No Notes: Max [facility] en 7-16 acetaminop l 17:00: hen 4000 [place] 00 mg/day (4 gm/day). (Same as: Tylenol Extra Strength) Acetaminoph No Notes: Max [facility] en 7-16 acetaminop l 17:00: hen 4000 [place] 00 mg/day (4 gm/day). (Same as: Tylenol Extra Strength) Tramadol No Notes: Not Mem [facility] 7-16 to exceed l 17:00: 400mg/day. [place] 00 (Same As: Ultram) pregabalin No Notes: [facility] ia 7-16 (Same as: l 17:00: Lyrica) [place] Tramadol No Notes: Not Mem [facility] 7-16 to exceed l 17:00: 400mg/day. [place] 00 (Same As: Ultram) pregabalin No Notes: [facility] 7-16 (Same as: l 17:00: Lyrica) [place] Acetaminoph No Notes: Max [facility] en 7-16 acetaminop l 17:00: hen 4000 [place] 00 mg/day (4 gm/day). (Same as: Tylenol Extra Strength) Tramadol No Notes: Not Mem [facility] 7-16 to exceed l 17:00: 400mg/day. [place] 00 (Same As: Ultram) pregabalin No Notes: [facility] ia 7-16 (Same as: l 17:00: Lyrica) [place] Acetaminoph No Notes: Max [facility] en 7-16 acetaminop l 17:00: hen 4000 [place] 00 mg/day (4 gm/day). (Same as: Tylenol Extra Strength) Tramadol No Notes: Not Mem [facility] 7-16 to exceed l 17:00: 400mg/day. [place] 00 (Same As: Ultram) pregabalin No Notes: [facility] 7-16 (Same as: l 17:00: Lyrica) [place] Acetaminoph No Notes: Max [facility] en 7-16 acetaminop l 17:00: hen 4000 [place] 00 mg/day (4 gm/day). (Same as: Tylenol Extra Strength) Tramadol No Notes: Not Mem [facility] 7-16 to exceed l 17:00: 400mg/day. [place] 00 (Same As: Ultram) pregabalin No Notes: [facility] 7-16 (Same as: l 17:00: Lyrica) [place] Acetaminoph No Notes: Max [facility] en 7-16 acetaminop l 17:00: hen 4000 [place] 00 mg/day (4 gm/day). (Same as: Tylenol Extra Strength) Tramadol 0 No Notes: Not Mem [facility] 7-16 to exceed l 17:00: 400mg/day. [place] 00 (Same As: Ultram) pregabalin No Notes: [facility] ia 7-16 (Same as: l 17:00: Lyrica) [place] Acetaminoph No Notes: Max [facility] en 7-16 acetaminop l 17:00: hen 4000 [place] 00 mg/day (4 gm/day). (Same as: Tylenol Extra Strength) Tramadol No Notes: Not Mem [facility] 7-16 to exceed l 17:00: 400mg/day. [place] 00 (Same As: Ultram) pregabalin No Notes: [facility] ia 7-16 (Same as: l 17:00: Lyrica) [place] Acetaminoph No Notes: Max [facility] en 7-16 acetaminop l 17:00: hen 4000 [place] 00 mg/day (4 gm/day). (Same as: Tylenol Extra Strength) Tramadol No Notes: Not Mem [facility] 7-16 to exceed l 17:00: 400mg/day. [place] 00 (Same As: Ultram) pregabalin No Notes: [facility] 7-16 (Same as: l 17:00: Lyrica) [place] Acetaminoph No Notes: Max [facility] en 7-16 acetaminop l 17:00: hen 4000 [place] 00 mg/day (4 gm/day). (Same as: Tylenol Extra Strength) Tramadol No Notes: Not Mem [facility] 7-16 to exceed l 17:00: 400mg/day. [place] 00 (Same As: Ultram) pregabalin No Notes: [facility] 7-16 (Same as: l 17:00: Lyrica) [place] Acetaminoph No Notes: Max [facility] en 7-16 acetaminop l 17:00: hen 4000 [place] 00 mg/day (4 gm/day). (Same as: Tylenol Extra Strength) Tramadol No Notes: Not [facility] 7-16 to exceed l 17:00: 400mg/day. [place] 00 (Same As: Ultram) pregabalin No Notes: [facility] 7-16 (Same as: l 17:00: Lyrica) [place] Acetaminoph No Notes: Max [facility] en 7-16 acetaminop l 17:00: hen 4000 [place] 00 mg/day (4 gm/day). (Same as: Tylenol Extra Strength) Tramadol No Notes: Not Mem [facility] 7-16 to exceed l 17:00: 400mg/day. [place] 00 (Same As: Ultram) pregabalin No Notes: [facility] ia 7-16 (Same as: l 17:00: Lyrica) [place] Acetaminoph No Notes: Max [facility] en 7-16 acetaminop l 17:00: hen 4000 [place] 00 mg/day (4 gm/day). (Same as: Tylenol Extra Strength) Tramadol No Notes: Not Mem [facility] 7-16 to exceed l 17:00: 400mg/day. [place] 00 (Same As: Ultram) pregabalin No Notes: [facility] 7-16 (Same as: l 17:00: Lyrica) [place] Acetaminoph No Notes: Max [facility] en 7-16 acetaminop l 17:00: hen 4000 [place] 00 mg/day (4 gm/day). (Same as: Tylenol Extra Strength) Tramadol No Notes: Not Mem [facility] 7-16 to exceed l 17:00: 400mg/day. [place] 00 (Same As: Ultram) pregabalin No Notes: [facility] 7-16 (Same as: l 17:00: Lyrica) [place] Acetaminoph No Notes: Max [facility] en 7-16 acetaminop l 17:00: hen 4000 [place] 00 mg/day (4 gm/day). (Same as: Tylenol Extra Strength) Tramadol No Notes: Not Mem [facility] 7-16 to exceed l 17:00: 400mg/day. [place] 00 (Same As: Ultram) pregabalin No Notes: [facility] 7-16 (Same as: l 17:00: Lyrica) [place] Acetaminoph No Notes: Max [facility] en 7-16 acetaminop l 17:00: hen 4000 [place] 00 mg/day (4 gm/day). (Same as: Tylenol Extra Strength) Tramadol No Notes: Not Mem [facility] 7-16 to exceed l 17:00: 400mg/day. [place] 00 (Same As: Ultram) pregabalin No Notes: [facility] 7-16 (Same as: l 17:00: Lyrica) [place] 00 Acetaminoph No Notes: Max [facility] en 7-16 acetaminop l 17:00: hen 4000 [place] 00 mg/day (4 gm/day). (Same as: Tylenol Extra Strength) Tramadol No Notes: Not Mem [facility] 7-16 to exceed l 17:00: 400mg/day. [place] 00 (Same As: Ultram) pregabalin No Notes: [facility] 7-16 (Same as: l 17:00: Lyrica) [place] 00 Acetaminoph No Notes: Max [facility] en 7-16 acetaminop l 17:00: hen 4000 [place] 00 mg/day (4 gm/day). (Same as: Tylenol Extra Strength) Tramadol No Notes: Not Mem [facility] 7-16 to exceed l 17:00: 400mg/day. [place] 00 (Same As: Ultram) pregabalin No Notes: [facility] 7-16 (Same as: l 17:00: Lyrica) [place] 00 Acetaminoph No Notes: Max [facility] en 7-16 acetaminop l 17:00: hen 4000 [place] 00 mg/day (4 gm/day). (Same as: Tylenol Extra Strength) Tramadol No Notes: Not Mem [facility] 7-16 to exceed l 17:00: 400mg/day. [place] 00 (Same As: Ultram) pregabalin No Notes: [facility] 7-16 (Same as: l 17:00: Lyrica) [place] Glucagon No 1 mg, [facility] 7-16 Route: IM, l 16:58: Drug form: [place] 00 PDR/INJ, PRN, Dosing Weight 72, kg, PRN Blood Glucose Results, Start date: 10/13/15 11:58:00 CDT, Duration: 30 day, Stop date: 11/12/15 11:57:00 CDT Insulin, 2016-0 No Notes: [facility] Aspart, 7-16 Roll in l Human 16:58: palms of [place] 00 hands gently; Do not shake vigorously . (Same as: NovoLOG) "single patient use only" WASTE: F/P - Black; E - Municipal Trash Bin Stable for 28 days at room temperatur e. Expires in days from ____Date Dextrose 2015-0 No 12.5 gm, [facility] 50% Syringe 7-16 25 mL, l 16:58: Route: [place] 00 IVP, Drug Form: INJ, Dosing Weight 72, kg, PRN, PRN Blood Glucose Results, Start date: 10/13/15 11:58:00 CDT, Duration: 30 day, Stop date: 11/12/15 11:57:00 CDT Glucagon 2015-0 No 1 mg, [facility] 7-16 Route: IM, l 16:58: Drug form: [place] 00 PDR/INJ, PRN, Dosing Weight 72, kg, PRN Blood Glucose Results, Start date: 10/13/15 11:58:00 CDT, Duration: 30 day, Stop date: 11/12/15 11:57:00 CDT Insulin, 2015-0 No Notes: [facility] Aspart, 7-16 Roll in l Human 16:58: palms of [place] 00 hands gently; Do not shake vigorously . (Same as: NovoLOG) "single patient use only" WASTE: F/P - Black; E - Municipal Trash Bin Stable for 28 days at room temperatur e. Expires in days from ____Date Dextrose 2015-0 No 12.5 gm, [facility] 50% Syringe 7-16 25 mL, l 16:58: Route: [place] 00 IVP, Drug Form: INJ, Dosing Weight 72, kg, PRN, PRN Blood Glucose Results, Start date: 10/13/15 11:58:00 CDT, Duration: 30 day, Stop date: 11/12/15 11:57:00 CDT Glucagon 2015-0 No 1 mg, [facility] 7-16 Route: IM, l 16:58: Drug form: [place] 00 PDR/INJ, PRN, Dosing Weight 72, kg, PRN Blood Glucose Results, Start date: 10/13/15 11:58:00 CDT, Duration: 30 day, Stop date: 11/12/15 11:57:00 CDT Insulin, 2015-0 No Notes: [facility] Aspart, 7-16 Roll in l Human 16:58: palms of [place] 00 hands gently; Do not shake vigorously . (Same as: NovoLOG) "single patient use only" WASTE: F/P - Black; E - Municipal Trash Bin Stable for 28 days at room temperatur e. Expires in days from ____Date Dextrose 0 No 12.5 gm, [facility] 50% Syringe 7 25 mL, l 16:58: Route: [place] 00 IVP, Drug Form: INJ, Dosing Weight 72, kg, PRN, PRN Blood Glucose Results, Start date: 10/13/15 11:58:00 CDT, Duration: 30 day, Stop date: 11/12/15 11:57:00 CDT Glucagon 0 No 1 mg, [facility] 10-12 Route: IM, l 16:58: Drug form: [place] 00 PDR/INJ, PRN, Dosing Weight 72, kg, PRN Blood Glucose Results, Start date: 10/13/15 11:58:00 CDT, Duration: 30 day, Stop date: 11/12/15 11:57:00 CDT Insulin, 2015-0 No Notes: [facility] Aspart, 7-16 Roll in l Human 16:58: palms of [place] 00 hands gently; Do not shake vigorously . (Same as: NovoLOG) "single patient use only" WASTE: F/P - Black; E - Municipal Trash Bin Stable for 28 days at room temperatur e. Expires in days from ____Date Dextrose 0 No 12.5 gm, [facility] 50% Syringe 7-16 25 mL, l 16:58: Route: [place] 00 IVP, Drug Form: INJ, Dosing Weight 72, kg, PRN, PRN Blood Glucose Results, Start date: 10/13/15 11:58:00 CDT, Duration: 30 day, Stop date: 11/12/15 11:57:00 CDT Glucagon 0 No 1 mg, [facility] - Route: IM, l 16:58: Drug form: [place] 00 PDR/INJ, PRN, Dosing Weight 72, kg, PRN Blood Glucose Results, Start date: 10/13/15 11:58:00 CDT, Duration: 30 day, Stop date: 11/12/15 11:57:00 CDT Insulin, 2015-0 No Notes: [facility] Aspart, 7-16 Roll in l Human 16:58: palms of [place] 00 hands gently; Do not shake vigorously . (Same as: NovoLOG) "single patient use only" WASTE: F/P - Black; E - Municipal Trash Bin Stable for 28 days at room temperatur e. Expires in days from ____Date Dextrose No 12.5 gm, [facility] 50% Syringe 10-12 25 mL, l 16:58: Route: [place] 00 IVP, Drug Form: INJ, Dosing Weight 72, kg, PRN, PRN Blood Glucose Results, Start date: 10/13/15 11:58:00 CDT, Duration: 30 day, Stop date: 11/12/15 11:57:00 CDT Glucagon 0 No 1 mg, [facility] 10-12 Route: IM, l 16:58: Drug form: [place] 00 PDR/INJ, PRN, Dosing Weight 72, kg, PRN Blood Glucose Results, Start date: 10/13/15 11:58:00 CDT, Duration: 30 day, Stop date: 11/12/15 11:57:00 CDT Insulin, 2015-0 No Notes: [facility] Aspart, 7-16 Roll in l Human 16:58: palms of [place] 00 hands gently; Do not shake vigorously . (Same as: NovoLOG) "single patient use only" WASTE: F/P - Black; E - Municipal Trash Bin Stable for 28 days at room temperatur e. Expires in days from ____Date Dextrose 2015-0 No 12.5 gm, [facility] 50% Syringe 7-16 25 mL, l 16:58: Route: [place] 00 IVP, Drug Form: INJ, Dosing Weight 72, kg, PRN, PRN Blood Glucose Results, Start date: 10/13/15 11:58:00 CDT, Duration: 30 day, Stop date: 11/12/15 11:57:00 CDT Glucagon 0 No 1 mg, Memoria 10-12 Route: IM, l 16:58: Drug form: [place] 00 PDR/INJ, PRN, Dosing Weight 72, kg, PRN Blood Glucose Results, Start date: 10/13/15 11:58:00 CDT, Duration: 30 day, Stop date: 11/12/15 11:57:00 CDT Insulin, 0 No Notes: Memoria Aspart, 7-16 Roll in l Human 16:58: [place] of [place] 00 hands gently; Do not shake vigorously . (Same as: NovoLOG) "single patient use only" WASTE: F/P - Black; E - [employer] Trash Bin Stable for 28 days at room temperatur e. Expires in days from ____Date Dextrose 2015-0 No 12.5 gm, [facility] 50% Syringe 7-16 25 mL, l 16:58: Route: [place] 00 IVP, Drug Form: INJ, Dosing Weight 72, kg, PRN, PRN Blood Glucose Results, Start date: 10/13/15 11:58:00 CDT, Duration: 30 day, Stop date: 11/12/15 11:57:00 CDT Glucagon 0 No 1 mg, Memoria 10-12 Route: IM, l 16:58: Drug form: [place] 00 PDR/INJ, PRN, Dosing Weight 72, kg, PRN Blood Glucose Results, Start date: 10/13/15 11:58:00 CDT, Duration: 30 day, Stop date: 11/12/15 11:57:00 CDT Insulin, 2015-0 No Notes: Memoria Aspart, 7-16 Roll in l Human 16:58: palms of [place] 00 hands gently; Do not shake vigorously . (Same as: NovoLOG) "single patient use only" WASTE: F/P - Black; E - [employer] Trash Bin Stable for 28 days at room temperatur e. Expires in days from ____Date Dextrose 2015-0 No 12.5 gm, Memor [facility] 50% Syringe 7-16 25 mL, l 16:58: Route: [place] 00 IVP, Drug Form: INJ, Dosing Weight 72, kg, PRN, PRN Blood Glucose Results, Start date: 10/13/15 11:58:00 CDT, Duration: 30 day, Stop date: 11/12/15 11:57:00 CDT Glucagon 2015-0 No 1 mg, Memoria 10-12 Route: IM, l 16:58: Drug form: [place] 00 PDR/INJ, PRN, Dosing Weight 72, kg, PRN Blood Glucose Results, Start date: 10/13/15 11:58:00 CDT, Duration: 30 day, Stop date: 11/12/15 11:57:00 CDT Insulin, 2015-0 No Notes: Memoria Aspart, - Roll in l Human 16:58: palms of [place] 00 hands gently; Do not shake vigorously . (Same as: NovoLOG) "single patient use only" WASTE: F/P - Black; E - [employer] Trash Bin Stable for 28 days at room temperatur e. Expires in days from ____Date Dextrose 2015-0 No 12.5 gm, Memor [facility] 50% Syringe -16 25 mL, l 16:58: Route: [place] 00 IVP, Drug Form: INJ, Dosing Weight 72, kg, PRN, PRN Blood Glucose Results, Start date: 10/13/15 11:58:00 CDT, Duration: 30 day, Stop date: 11/12/15 11:57:00 CDT Glucagon 2015-0 No 1 mg, [facility] 7- Route: IM, l 16:58: Drug form: [place] 00 PDR/INJ, PRN, Dosing Weight 72, kg, PRN Blood Glucose Results, Start date: 10/13/15 11:58:00 CDT, Duration: 30 day, Stop date: 11/12/15 11:57:00 CDT Insulin, 2016-0 No Notes: [facility] Aspart, 7-16 Roll in l Human 16:58: palms of [place] 00 hands gently; Do not shake vigorously . (Same as: NovoLOG) "single patient use only" WASTE: F/P - Black; E - [facility] Trash Bin Stable for 28 days at room temperatur e. Expires in days from ____Date Dextrose 2015-0 No 12.5 gm, [facility] 50% Syringe 7-16 25 mL, l 16:58: Route: [place] 00 IVP, Drug Form: INJ, Dosing Weight 72, kg, PRN, PRN Blood Glucose Results, Start date: 10/13/15 11:58:00 CDT, Duration: 30 day, Stop date: 11/12/15 11:57:00 CDT Glucagon 2015-0 No 1 mg, [facility] 716 Route: IM, l 16:58: Drug form: [place] 00 PDR/INJ, PRN, Dosing Weight 72, kg, PRN Blood Glucose Results, Start date: 10/13/15 11:58:00 CDT, Duration: 30 day, Stop date: 11/12/15 11:57:00 CDT Insulin, 2015-0 No Notes: [facility] Aspart, 7-16 Roll in l Human 16:58: palms of [place] 00 hands gently; Do not shake vigorously . (Same as: NovoLOG) "single patient use only" WASTE: F/P - Black; E - [facility] Trash Bin Stable for 28 days at room temperatur e. Expires in days from ____Date Dextrose 2015-0 No 12.5 gm, [facility] 50% Syringe 7-16 25 mL, l 16:58: Route: [place] 00 IVP, Drug Form: INJ, Dosing Weight 72, kg, PRN, PRN Blood Glucose Results, Start date: 10/13/15 11:58:00 CDT, Duration: 30 day, Stop date: 11/12/15 11:57:00 CDT Glucagon 2015-0 No 1 mg, [facility] 716 Route: IM, l 16:58: Drug form: [place] 00 PDR/INJ, PRN, Dosing Weight 72, kg, PRN Blood Glucose Results, Start date: 10/13/15 11:58:00 CDT, Duration: 30 day, Stop date: 11/12/15 11:57:00 CDT Insulin, 2015-0 No Notes: [facility] Aspart, 7-16 Roll in l Human 16:58: palms of [place] 00 hands gently; Do not shake vigorously . (Same as: NovoLOG) "single patient use only" WASTE: F/P - Black; E - [facility] Trash Bin Stable for 28 days at room temperatur e. Expires in days from ____Date Dextrose 2015-0 No 12.5 gm, [facility] 50% Syringe 7- 25 mL, l 16:58: Route: [place] 00 IVP, Drug Form: INJ, Dosing Weight 72, kg, PRN, PRN Blood Glucose Results, Start date: 10/13/15 11:58:00 CDT, Duration: 30 day, Stop date: 11/12/15 11:57:00 CDT Glucagon 0 No 1 mg, [facility] 7-16 Route: IM, l 16:58: Drug form: [place] 00 PDR/INJ, PRN, Dosing Weight 72, kg, PRN Blood Glucose Results, Start date: 10/13/15 11:58:00 CDT, Duration: 30 day, Stop date: 11/12/15 11:57:00 CDT Insulin, 2015-0 No Notes: [facility] Aspart, 7-16 Roll in l Human 16:58: palms of [place] 00 hands gently; Do not shake vigorously . (Same as: NovoLOG) "single patient use only" WASTE: F/P - Black; E - [facility] Trash Bin Stable for 28 days at room temperatur e. Expires in days from ____Date Dextrose 2015-0 No 12.5 gm, [facility] 50% Syringe 7-16 25 mL, l 16:58: Route: [place] 00 IVP, Drug Form: INJ, Dosing Weight 72, kg, PRN, PRN Blood Glucose Results, Start date: 10/13/15 11:58:00 CDT, Duration: 30 day, Stop date: 11/12/15 11:57:00 CDT Glucagon 2015-0 No 1 mg, [facility] 10-12 Route: IM, l 16:58: Drug form: [place] 00 PDR/INJ, PRN, Dosing Weight 72, kg, PRN Blood Glucose Results, Start date: 10/13/15 11:58:00 CDT, Duration: 30 day, Stop date: 11/12/15 11:57:00 CDT Insulin, 2015-0 No Notes: [facility] Aspart, 7-16 Roll in l Human 16:58: palms of [place] 00 hands gently; Do not shake vigorously . (Same as: NovoLOG) "single patient use only" WASTE: F/P - Black; E - [facility] Trash Bin Stable for 28 days at room temperatur e. Expires in days from ____Date Dextrose 2015-0 No 12.5 gm, [facility] 50% Syringe 7-16 25 mL, l 16:58: Route: [place] 00 IVP, Drug Form: INJ, Dosing Weight 72, kg, PRN, PRN Blood Glucose Results, Start date: 10/13/15 11:58:00 CDT, Duration: 30 day, Stop date: 11/12/15 11:57:00 CDT Glucagon 0 No 1 mg, [facility] 10-12 Route: IM, l 16:58: Drug form: [place] 00 PDR/INJ, PRN, Dosing Weight 72, kg, PRN Blood Glucose Results, Start date: 10/13/15 11:58:00 CDT, Duration: 30 day, Stop date: 11/12/15 11:57:00 CDT Insulin, 2015-0 No Notes: [facility] Asp[facility], 7-16 Roll in l Human 16:58: palms of [place] 00 hands gently; Do not shake vigorously . (Same as: NovoLOG) "single patient use only" WASTE: F/P - Black; E - [facility] Trash Bin Stable for 28 days at room temperatur e. Expires in days from ____Date Dextrose 2015-0 No 12.5 gm, [facility] 50% Syringe 7-16 25 mL, l 16:58: Route: [place] 00 IVP, Drug Form: INJ, Dosing Weight 72, kg, PRN, PRN Blood Glucose Results, Start date: 10/13/15 11:58:00 CDT, Duration: 30 day, Stop date: 11/12/15 11:57:00 CDT Glucagon 0 No 1 mg, [facility] 16 Route: IM, l 16:58: Drug form: [place] 00 PDR/INJ, PRN, Dosing Weight 72, kg, PRN Blood Glucose Results, Start date: 10/13/15 11:58:00 CDT, Duration: 30 day, Stop date: 11/12/15 11:57:00 CDT Insulin, 2015-0 No Notes: [facility] Asp[facility], 7-16 Roll in l Human 16:58: palms of [place] 00 hands gently; Do not shake vigorously . (Same as: NovoLOG) "single patient use only" WASTE: F/P - Black; E - [facility] Trash Bin Stable for 28 days at room temperatur e. Expires in days from ____Date Dextrose 0 No 12.5 gm, [facility] 50% Syringe 7-16 25 mL, l 16:58: Route: [place] 00 IVP, Drug Form: INJ, Dosing Weight 72, kg, PRN, PRN Blood Glucose Results, Start date: 10/13/15 11:58:00 CDT, Duration: 30 day, Stop date: 11/12/15 11:57:00 CDT Glucagon 0 No 1 mg, [facility] 10-12 Route: IM, l 16:58: Drug form: [place] 00 PDR/INJ, PRN, Dosing Weight 72, kg, PRN Blood Glucose Results, Start date: 10/13/15 11:58:00 CDT, Duration: 30 day, Stop date: 11/12/15 11:57:00 CDT Insulin, 2015-0 No Notes: [facility], 7-16 Roll in l Human 16:58: palms of [place] 00 hands gently; Do not shake vigorously . (Same as: NovoLOG) "single patient use only" WASTE: F/P - Black; E - [facility] Trash Bin Stable for 28 days at room temperatur e. Expires in days from ____Date Dextrose 2016-0 No 12.5 gm, [facility] 50% Syringe 7-16 25 mL, l 16:58: Route: [place] 00 IVP, Drug Form: INJ, Dosing Weight 72, kg, PRN, PRN Blood Glucose Results, Start date: 10/13/15 11:58:00 CDT, Duration: 30 day, Stop date: 11/12/15 11:57:00 CDT Glucagon 2015-0 No 1 mg, [facility] 7-16 Route: IM, l 16:58: Drug form: [place] 00 PDR/INJ, PRN, Dosing Weight 72, kg, PRN Blood Glucose Results, Start date: 10/13/15 11:58:00 CDT, Duration: 30 day, Stop date: 11/12/15 11:57:00 CDT Insulin, 2015-0 No Notes: [facility], 7-16 Roll in l Human 16:58: palms of [place] 00 hands gently; Do not shake vigorously . (Same as: NovoLOG) "single patient use only" WASTE: F/P - Black; E - [facility] Trash Bin Stable for 28 days at room temperatur e. Expires in days from ____Date Dextrose 2015-0 No 12.5 gm, [facility] 50% Syringe 7-16 25 mL, l 16:58: Route: [place] 00 IVP, Drug Form: INJ, Dosing Weight 72, kg, PRN, PRN Blood Glucose Results, Start date: 10/13/15 11:58:00 CDT, Duration: 30 day, Stop date: 11/12/15 11:57:00 CDT Glucagon 2015-0 No 1 mg, [facility] 7-16 Route: IM, l 16:58: Drug form: [place] 00 PDR/INJ, PRN, Dosing Weight 72, kg, PRN Blood Glucose Results, Start date: 10/13/15 11:58:00 CDT, Duration: 30 day, Stop date: 11/12/15 11:57:00 CDT Insulin, 2015-0 No Notes: [facility], 7-16 Roll in l Human 16:58: palms of [place] 00 hands gently; Do not shake vigorously . (Same as: NovoLOG) "single patient use only" WASTE: F/P - Black; E - [facility] Trash Bin Stable for 28 days at room temperatur e. Expires in days from ____Date Dextrose 2016-0 No 12.5 gm, [facility] 50% Syringe 7-16 25 mL, l 16:58: Route: [place] 00 IVP, Drug Form: INJ, Dosing Weight 72, kg, PRN, PRN Blood Glucose Results, Start date: 10/13/15 11:58:00 CDT, Duration: 30 day, Stop date: 11/12/15 11:57:00 CDT Glucagon 2015-0 No 1 mg, [facility] 10-12 Route: IM, l 16:58: Drug form: [place] 00 PDR/INJ, PRN, Dosing Weight 72, kg, PRN Blood Glucose Results, Start date: 10/13/15 11:58:00 CDT, Duration: 30 day, Stop date: 11/12/15 11:57:00 CDT Insulin, 2015-0 No Notes: [facility] Asp[facility], 7- Roll in l Human 16:58: palms of [place] 00 hands gently; Do not shake vigorously . (Same as: NovoLOG) "single patient use only" WASTE: F/P - Black; E - [facility] Trash Bin Stable for 28 days at room temperatur e. Expires in days from ____Date Dextrose 2016-0 No 12.5 gm, [facility] 50% Syringe 7-16 25 mL, l 16:58: Route: [place] 00 IVP, Drug Form: INJ, Dosing Weight 72, kg, PRN, PRN Blood Glucose Results, Start date: 10/13/15 11:58:00 CDT, Duration: 30 day, Stop date: 11/12/15 11:57:00 CDT Glucagon 2015-0 No 1 mg, [facility] 10-12 Route: IM, l 16:58: Drug form: [place] 00 PDR/INJ, PRN, Dosing Weight 72, kg, PRN Blood Glucose Results, Start date: 10/13/15 11:58:00 CDT, Duration: 30 day, Stop date: 11/12/15 11:57:00 CDT Insulin, 0 No Notes: [facility], 7-16 Roll in l Human 16:58: palms of [place] 00 hands gently; Do not shake vigorously . (Same as: NovoLOG) "single patient use only" WASTE: F/P - Black; E - [facility] Trash Bin Stable for 28 days at room temperatur e. Expires in days from ____Date Dextrose 0 No 12.5 gm, [facility] 50% Syringe 7-16 25 mL, l 16:58: Route: [place] 00 IVP, Drug Form: INJ, Dosing Weight 72, kg, PRN, PRN Blood Glucose Results, Start date: 10/13/15 11:58:00 CDT, Duration: 30 day, Stop date: 11/12/15 11:57:00 CDT Glucagon No 1 mg, [facility] 7-16 Route: IM, l 16:58: Drug form: [place] 00 PDR/INJ, PRN, Dosing Weight 72, kg, PRN Blood Glucose Results, Start date: 10/13/15 11:58:00 CDT, Duration: 30 day, Stop date: 11/12/15 11:57:00 CDT Insulin, 0 No Notes: [facility], 7-16 Roll in l Human 16:58: palms of [place] 00 hands gently; Do not shake vigorously . (Same as: NovoLOG) "single patient use only" WASTE: F/P - Black; E - [facility] Trash Bin Stable for 28 days at room temperatur e. Expires in days from ____Date Dextrose 0 No 12.5 gm, [facility] 50% Syringe 7-16 25 mL, l 16:58: Route: [place] 00 IVP, Drug Form: INJ, Dosing Weight 72, kg, PRN, PRN Blood Glucose Results, Start date: 10/13/15 11:58:00 CDT, Duration: 30 day, Stop date: 11/12/15 11:57:00 CDT Glucagon 2015-0 No 1 mg, [facility] 7-16 Route: IM, l 16:58: Drug form: [place] 00 PDR/INJ, PRN, Dosing Weight 72, kg, PRN Blood Glucose Results, Start date: 10/13/15 11:58:00 CDT, Duration: 30 day, Stop date: 11/12/15 11:57:00 CDT Glucagon 2015-0 No 1 mg, [facility] 7-16 Route: IM, l 16:58: Drug form: [place] 00 PDR/INJ, PRN, Dosing Weight 72, kg, PRN Blood Glucose Results, Start date: 10/13/15 11:58:00 CDT, Duration: 30 day, Stop date: 11/12/15 11:57:00 CDT Insulin, 2015-0 No Notes: [facility], 7-16 Roll in l Human 16:58: palms of [place] 00 hands gently; Do not shake vigorously . (Same as: NovoLOG) "single patient use only" WASTE: F/P - Black; E - [facility] Trash Bin Stable for 28 days at room temperatur e. Expires in days from ____Date Dextrose 2015-0 No 12.5 gm, [facility] 50% Syringe 7-16 25 mL, l 16:58: Route: [place] 00 IVP, Drug Form: INJ, Dosing Weight 72, kg, PRN, PRN Blood Glucose Results, Start date: 10/13/15 11:58:00 CDT, Duration: 30 day, Stop date: 11/12/15 11:57:00 CDT Insulin, 2015-0 No Notes: [facility], 7-16 Roll in l Human 16:58: palms of [place] 00 hands gently; Do not shake vigorously . (Same as: NovoLOG) "single patient use only" WASTE: F/P - Black; E - [facility] Trash Bin Stable for 28 days at room temperatur e. Expires in days from ____Date Dextrose 2015-0 No 12.5 gm, [facility] 50% Syringe 7-16 25 mL, l 16:58: Route: [place] 00 IVP, Drug Form: INJ, Dosing Weight 72, kg, PRN, PRN Blood Glucose Results, Start date: 10/13/15 11:58:00 CDT, Duration: 30 day, Stop date: 11/12/15 11:57:00 CDT Glucagon 2015-0 No 1 mg, [facility] 10-12 Route: IM, l 16:58: Drug form: [place] 00 PDR/INJ, PRN, Dosing Weight 72, kg, PRN Blood Glucose Results, Start date: 10/13/15 11:58:00 CDT, Duration: 30 day, Stop date: 11/12/15 11:57:00 CDT Insulin, 2015-0 No Notes: [facility]art, 7-16 Roll in l Human 16:58: palms of [place] 00 hands gently; Do not shake vigorously . (Same as: NovoLOG) "single patient use only" WASTE: F/P - Black; E - [facility] Trash Bin Stable for 28 days at room temperatur e. Expires in days from ____Date Dextrose 0 No 12.5 gm, [facility] 50% Syringe 10-12 25 mL, l 16:58: Route: [place] 00 IVP, Drug Form: INJ, Dosing Weight 72, kg, PRN, PRN Blood Glucose Results, Start date: 10/13/15 11:58:00 CDT, Duration: 30 day, Stop date: 11/12/15 11:57:00 CDT Glucagon 0 No 1 mg, [facility] 10-12 Route: IM, l 16:58: Drug form: [place] 00 PDR/INJ, PRN, Dosing Weight 72, kg, PRN Blood Glucose Results, Start date: 10/13/15 11:58:00 CDT, Duration: 30 day, Stop date: 11/12/15 11:57:00 CDT Insulin, 2015-0 No Notes: [facility], 7-16 Roll in l Human 16:58: palms of [place] 00 hands gently; Do not shake vigorously . (Same as: NovoLOG) "single patient use only" WASTE: F/P - Black; E - [facility] Trash Bin Stable for 28 days at room temperatur e. Expires in days from ____Date Dextrose 2016-0 No 12.5 gm, [facility] 50% Syringe 7-16 25 mL, l 16:58: Route: [place] 00 IVP, Drug Form: INJ, Dosing Weight 72, kg, PRN, PRN Blood Glucose Results, Start date: 10/13/15 11:58:00 CDT, Duration: 30 day, Stop date: 11/12/15 11:57:00 CDT Glucagon 2015-0 No 1 mg, [facility] 7-16 Route: IM, l 16:58: Drug form: [place] 00 PDR/INJ, PRN, Dosing Weight 72, kg, PRN Blood Glucose Results, Start date: 10/13/15 11:58:00 CDT, Duration: 30 day, Stop date: 11/12/15 11:57:00 CDT Insulin, 2015-0 No Notes: [facility], 7-16 Roll in l Human 16:58: palms of [place] 00 hands gently; Do not shake vigorously . (Same as: NovoLOG) "single patient use only" WASTE: F/P - Black; E - [facility] Trash Bin Stable for 28 days at room temperatur e. Expires in days from ____Date Dextrose 2015-0 No 12.5 gm, [facility] 50% Syringe 7-16 25 mL, l 16:58: Route: [place] 00 IVP, Drug Form: INJ, Dosing Weight 72, kg, PRN, PRN Blood Glucose Results, Start date: 10/13/15 11:58:00 CDT, Duration: 30 day, Stop date: 11/12/15 11:57:00 CDT Glucagon 2015-0 No 1 mg, [facility] 7-16 Route: IM, l 16:58: Drug form: [place] 00 PDR/INJ, PRN, Dosing Weight 72, kg, PRN Blood Glucose Results, Start date: 10/13/15 11:58:00 CDT, Duration: 30 day, Stop date: 11/12/15 11:57:00 CDT Insulin, 2016-0 No Notes: [facility], 7-16 Roll in l Human 16:58: palms of [place] 00 hands gently; Do not shake vigorously . (Same as: NovoLOG) "single patient use only" WASTE: F/P - Black; E - [facility] Trash Bin Stable for 28 days at room temperatur e. Expires in days from ____Date Dextrose 2015-0 No 12.5 gm, [facility] 50% Syringe 7-16 25 mL, l 16:58: Route: [place] 00 IVP, Drug Form: INJ, Dosing Weight 72, kg, PRN, PRN Blood Glucose Results, Start date: 10/13/15 11:58:00 CDT, Duration: 30 day, Stop date: 11/12/15 11:57:00 CDT Glucagon 2015-0 No 1 mg, [facility] 10-12 Route: IM, l 16:58: Drug form: [place] 00 PDR/INJ, PRN, Dosing Weight 72, kg, PRN Blood Glucose Results, Start date: 10/13/15 11:58:00 CDT, Duration: 30 day, Stop date: 11/12/15 11:57:00 CDT Insulin, 2015-0 No Notes: [facility], - Roll in l Human 16:58: palms of [place] 00 hands gently; Do not shake vigorously . (Same as: NovoLOG) "single patient use only" WASTE: F/P - Black; E - [facility] Trash Bin Stable for 28 days at room temperatur e. Expires in days from ____Date Dextrose 2015-0 No 12.5 gm, [facility] 50% Syringe 7-16 25 mL, l 16:58: Route: [place] 00 IVP, Drug Form: INJ, Dosing Weight 72, kg, PRN, PRN Blood Glucose Results, Start date: 10/13/15 11:58:00 CDT, Duration: 30 day, Stop date: 11/12/15 11:57:00 CDT Glucagon 2015-0 No 1 mg, [facility] 7-16 Route: IM, l 16:58: Drug form: [place] 00 PDR/INJ, PRN, Dosing Weight 72, kg, PRN Blood Glucose Results, Start date: 10/13/15 11:58:00 CDT, Duration: 30 day, Stop date: 11/12/15 11:57:00 CDT Glucagon 2015-0 No 1 mg, [facility] - Route: IM, l 16:58: Drug form: [place] 00 PDR/INJ, PRN, Dosing Weight 72, kg, PRN Blood Glucose Results, Start date: 10/13/15 11:58:00 CDT, Duration: 30 day, Stop date: 11/12/15 11:57:00 CDT Insulin, 2015-0 No Notes: [facility], 7-16 Roll in l Human 16:58: palms of [place] 00 hands gently; Do not shake vigorously . (Same as: NovoLOG) "single patient use only" WASTE: F/P - Black; E - [facility] Trash Bin Stable for 28 days at room temperatur e. Expires in days from ____Date Dextrose 2015-0 No 12.5 gm, [facility] 50% Syringe 7-16 25 mL, l 16:58: Route: [place] 00 IVP, Drug Form: INJ, Dosing Weight 72, kg, PRN, PRN Blood Glucose Results, Start date: 10/13/15 11:58:00 CDT, Duration: 30 day, Stop date: 11/12/15 11:57:00 CDT Insulin, 2015-0 No Notes: [facility], 7-16 Roll in l Human 16:58: palms of [place] 00 hands gently; Do not shake vigorously . (Same as: NovoLOG) "single patient use only" WASTE: F/P - Black; E - [facility] Trash Bin Stable for 28 days at room temperatur e. Expires in days from ____Date Dextrose 2015-0 No 12.5 gm, [facility] 50% Syringe 7-16 25 mL, l 16:58: Route: [place] 00 IVP, Drug Form: INJ, Dosing Weight 72, kg, PRN, PRN Blood Glucose Results, Start date: 10/13/15 11:58:00 CDT, Duration: 30 day, Stop date: 11/12/15 11:57:00 CDT Glucagon 2015-0 No 1 mg, [facility] 7-16 Route: IM, l 16:58: Drug form: [place] 00 PDR/INJ, PRN, Dosing Weight 72, kg, PRN Blood Glucose Results, Start date: 10/13/15 11:58:00 CDT, Duration: 30 day, Stop date: 11/12/15 11:57:00 CDT Insulin, 2015-0 No Notes: [facility], 7-16 Roll in l Human 16:58: palms of [place] 00 hands gently; Do not shake vigorously . (Same as: NovoLOG) "single patient use only" WASTE: F/P - Black; E - [facility] Trash Bin Stable for 28 days at room temperatur e. Expires in days from ____Date Dextrose 0 No 12.5 gm, [facility] 50% Syringe 7- 25 mL, l 16:58: Route: [place] 00 IVP, Drug Form: INJ, Dosing Weight 72, kg, PRN, PRN Blood Glucose Results, Start date: 10/13/15 11:58:00 CDT, Duration: 30 day, Stop date: 11/12/15 11:57:00 CDT Glucagon 2015-0 No 1 mg, [facility] 7-16 Route: IM, l 16:58: Drug form: [place] 00 PDR/INJ, PRN, Dosing Weight 72, kg, PRN Blood Glucose Results, Start date: 10/13/15 11:58:00 CDT, Duration: 30 day, Stop date: 11/12/15 11:57:00 CDT Insulin, 2015-0 No Notes: [facility], 7-16 Roll in l Human 16:58: palms of [place] 00 hands gently; Do not shake vigorously . (Same as: NovoLOG) "single patient use only" WASTE: F/P - Black; E - [facility] Trash Bin Stable for 28 days at room temperatur e. Expires in days from ____Date Dextrose 2015-0 No 12.5 gm, [facility] 50% Syringe 7-16 25 mL, l 16:58: Route: [place] 00 IVP, Drug Form: INJ, Dosing Weight 72, kg, PRN, PRN Blood Glucose Results, Start date: 10/13/15 11:58:00 CDT, Duration: 30 day, Stop date: 11/12/15 11:57:00 CDT Glucagon 2015-0 No 1 mg, [facility] - Route: IM, l 16:58: Drug form: [place] 00 PDR/INJ, PRN, Dosing Weight 72, kg, PRN Blood Glucose Results, Start date: 10/13/15 11:58:00 CDT, Duration: 30 day, Stop date: 11/12/15 11:57:00 CDT Insulin, 2016-0 No Notes: [facility], 7-16 Roll in l Human 16:58: palms of hands gently; Do not shake vigorously . (Same as: NovoLOG) "single patient use only" WASTE: F/P - Black; E - [facility] Trash Bin Stable for 28 days at room temperatur e. Expires in days from ____Date Dextrose 2015-0 No 12.5 gm, [facility] 50% Syringe 10-12 25 mL, l 16:58: Route: [place] 00 IVP, Drug Form: INJ, Dosing Weight 72, kg, PRN, PRN Blood Glucose Results, Start date: 10/13/15 11:58:00 CDT, Duration: 30 day, Stop date: 11/12/15 11:57:00 CDT Glucagon 2015-0 No 1 mg, [facility] 10-12 Route: IM, l 16:58: Drug form: [place] 00 PDR/INJ, PRN, Dosing Weight 72, kg, PRN Blood Glucose Results, Start date: 10/13/15 11:58:00 CDT, Duration: 30 day, Stop date: 11/12/15 11:57:00 CDT Glucagon 2015-0 No 1 mg, [facility] - Route: IM, l 16:58: Drug form: [place] 00 PDR/INJ, PRN, Dosing Weight 72, kg, PRN Blood Glucose Results, Start date: 10/13/15 11:58:00 CDT, Duration: 30 day, Stop date: 11/12/15 11:57:00 CDT Insulin, 2015-0 No Notes: [facility], 7-16 Roll in l Human 16:58: palms of [place] 00 hands gently; Do not shake vigorously . (Same as: NovoLOG) "single patient use only" WASTE: F/P - Black; E - [facility] Trash Bin Stable for 28 days at room temperatur e. Expires in days from ____Date Dextrose 2015-0 No 12.5 gm, [facility] 50% Syringe 7-16 25 mL, l 16:58: Route: [place] 00 IVP, Drug Form: INJ, Dosing Weight 72, kg, PRN, PRN Blood Glucose Results, Start date: 10/13/15 11:58:00 CDT, Duration: 30 day, Stop date: 11/12/15 11:57:00 CDT Insulin, 2015-0 No Notes: [facility], 7-16 Roll in l Human 16:58: palms of [place] 00 hands gently; Do not shake vigorously . (Same as: NovoLOG) "single patient use only" WASTE: F/P - Black; E - [facility] Trash Bin Stable for 28 days at room temperatur e. Expires in days from ____Date Dextrose 2015-0 No 12.5 gm, [facility] 50% Syringe 7-16 25 mL, l 16:58: Route: [place] 00 IVP, Drug Form: INJ, Dosing Weight 72, kg, PRN, PRN Blood Glucose Results, Start date: 10/13/15 11:58:00 CDT, Duration: 30 day, Stop date: 11/12/15 11:57:00 CDT Glucagon 2015-0 No 1 mg, [facility] 7-16 Route: IM, l 16:58: Drug form: [place] 00 PDR/INJ, PRN, Dosing Weight 72, kg, PRN Blood Glucose Results, Start date: 10/13/15 11:58:00 CDT, Duration: 30 day, Stop date: 11/12/15 11:57:00 CDT Insulin, 2016-0 No Notes: [facility], 7-16 Roll in l Human 16:58: palms of [place] 00 hands gently; Do not shake vigorously . (Same as: NovoLOG) "single patient use only" WASTE: F/P - Black; E - [facility] Trash Bin Stable for 28 days at room temperatur e. Expires in days from ____Date Dextrose 2016-0 No 12.5 gm, [facility] 50% Syringe 7-16 25 mL, l 16:58: Route: [place] 00 IVP, Drug Form: INJ, Dosing Weight 72, kg, PRN, PRN Blood Glucose Results, Start date: 10/13/15 11:58:00 CDT, Duration: 30 day, Stop date: 11/12/15 11:57:00 CDT Glucagon 2015-0 No 1 mg, [facility] 10-12 Route: IM, l 16:58: Drug form: [place] 00 PDR/INJ, PRN, Dosing Weight 72, kg, PRN Blood Glucose Results, Start date: 10/13/15 11:58:00 CDT, Duration: 30 day, Stop date: 11/12/15 11:57:00 CDT Insulin, 2015-0 No Notes: [facility], - Roll in l Human 16:58: palms of [place] 00 hands gently; Do not shake vigorously . (Same as: NovoLOG) "single patient use only" WASTE: F/P - Black; E - [facility] Trash Bin Stable for 28 days at room temperatur e. Expires in days from ____Date Dextrose 2015-0 No 12.5 gm, [facility] 50% Syringe 7-16 25 mL, l 16:58: Route: [place] 00 IVP, Drug Form: INJ, Dosing Weight 72, kg, PRN, PRN Blood Glucose Results, Start date: 10/13/15 11:58:00 CDT, Duration: 30 day, Stop date: 11/12/15 11:57:00 CDT Glucagon 2015-0 No 1 mg, [facility] -16 Route: IM, l 16:58: Drug form: [place] 00 PDR/INJ, PRN, Dosing Weight 72, kg, PRN Blood Glucose Results, Start date: 10/13/15 11:58:00 CDT, Duration: 30 day, Stop date: 11/12/15 11:57:00 CDT Insulin, 2016-0 No Notes: [facility], 7-16 Roll in l Human 16:58: palms of [place] 00 hands gently; Do not shake vigorously . (Same as: NovoLOG) "single patient use only" WASTE: F/P - Black; E - Municipal Trash Bin Stable for 28 days at room temperatur e. Expires in days from ____Date Dextrose 2015-0 No 12.5 gm, Memor ia 50% Syringe 7-16 25 mL, l 16:58: Route: [place] 00 IVP, Drug Form: INJ, Dosing Weight 72, kg, PRN, PRN Blood Glucose Results, Start date: 10/13/15 11:58:00 CDT, Duration: 30 day, Stop date: 11/12/15 11:57:00 CDT Glucagon 2015-0 No 1 mg, Memoria 7-16 Route: IM, l 16:58: Drug form: [place] 00 PDR/INJ, PRN, Dosing Weight 72, kg, PRN Blood Glucose Results, Start date: 10/13/15 11:58:00 CDT, Duration: 30 day, Stop date: 11/12/15 11:57:00 CDT Insulin, 2015-0 No Notes: Memoria Aspart, 7-16 Roll in l Human 16:58: palms of [place] 00 hands gently; Do not shake vigorously . (Same as: NovoLOG) "single patient use only" WASTE: F/P - Black; E - Municipal Trash Bin Stable for 28 days at room temperatur e. Expires in days from ____Date Dextrose 2015-0 No 12.5 gm, Memor ia 50% Syringe 7-16 25 mL, l 16:58: Route: [place] 00 IVP, Drug Form: INJ, Dosing Weight 72, kg, PRN, PRN Blood Glucose Results, Start date: 10/13/15 11:58:00 CDT, Duration: 30 day, Stop date: 11/12/15 11:57:00 CDT Glucagon 2015-0 No 1 mg, Memoria 7-16 Route: IM, l 16:58: Drug form: [place] 00 PDR/INJ, PRN, Dosing Weight 72, kg, PRN Blood Glucose Results, Start date: 10/13/15 11:58:00 CDT, Duration: 30 day, Stop date: 11/12/15 11:57:00 CDT Insulin, 2015-0 No Notes: Memoria Aspart, 7-16 Roll in l Human 16:58: palms of [place] 00 hands gently; Do not shake vigorously . (Same as: NovoLOG) "single patient use only" WASTE: F/P - Black; E - Municipal Trash Bin Stable for 28 days at room temperatur e. Expires in days from ____Date Dextrose 2015-0 No 12.5 gm, Memor ia 50% Syringe 7-16 25 mL, l 16:58: Route: [place] 00 IVP, Drug Form: INJ, Dosing Weight 72, kg, PRN, PRN Blood Glucose Results, Start date: 10/13/15 11:58:00 CDT, Duration: 30 day, Stop date: 11/12/15 11:57:00 CDT Glucagon 0 No 1 mg, Memoria 7-16 Route: IM, l 16:58: Drug form: [place] 00 PDR/INJ, PRN, Dosing Weight 72, kg, PRN Blood Glucose Results, Start date: 10/13/15 11:58:00 CDT, Duration: 30 day, Stop date: 11/12/15 11:57:00 CDT Insulin, 2015-0 No Notes: Memoria Aspart, 7-16 Roll in l Human 16:58: palms of [place] 00 hands gently; Do not shake vigorously . (Same as: NovoLOG) "single patient use only" WASTE: F/P - Black; E - Municipal Trash Bin Stable for 28 days at room temperatur e. Expires in days from ____Date Dextrose 2015-0 No 12.5 gm, Memor ia 50% Syringe 7-16 25 mL, l 16:58: Route: [place] 00 IVP, Drug Form: INJ, Dosing Weight 72, kg, PRN, PRN Blood Glucose Results, Start date: 10/13/15 11:58:00 CDT, Duration: 30 day, Stop date: 11/12/15 11:57:00 CDT Glucagon 2015-0 No 1 mg, Memoria 7-16 Route: IM, l 16:58: Drug form: [place] 00 PDR/INJ, PRN, Dosing Weight 72, kg, PRN Blood Glucose Results, Start date: 10/13/15 11:58:00 CDT, Duration: 30 day, Stop date: 11/12/15 11:57:00 CDT Insulin, 2016-0 No Notes: Memoria Aspart, 7-16 Roll in l Human 16:58: palms of [place] 00 hands gently; Do not shake vigorously . (Same as: NovoLOG) "single patient use only" WASTE: F/P - Black; E - Municipal Trash Bin Stable for 28 days at room temperatur e. Expires in days from ____Date Dextrose 2015-0 No 12.5 gm, Memor ia 50% Syringe 10-12 25 mL, l 16:58: Route: [place] 00 IVP, Drug Form: INJ, Dosing Weight 72, kg, PRN, PRN Blood Glucose Results, Start date: 10/13/15 11:58:00 CDT, Duration: 30 day, Stop date: 11/12/15 11:57:00 CDT Glucagon 2015-0 No 1 mg, Memoria 10-12 Route: IM, l 16:58: Drug form: [place] 00 PDR/INJ, PRN, Dosing Weight 72, kg, PRN Blood Glucose Results, Start date: 10/13/15 11:58:00 CDT, Duration: 30 day, Stop date: 11/12/15 11:57:00 CDT Insulin, 2016-0 No Notes: Memoria Aspart, 7-16 Roll in l Human 16:58: palms of [place] 00 hands gently; Do not shake vigorously . (Same as: NovoLOG) "single patient use only" WASTE: F/P - Black; E - Municipal Trash Bin Stable for 28 days at room temperatur e. Expires in days from ____Date Dextrose 2015-0 No 12.5 gm, Memor ia 50% Syringe 7-16 25 mL, l 16:58: Route: [place] 00 IVP, Drug Form: INJ, Dosing Weight 72, kg, PRN, PRN Blood Glucose Results, Start date: 10/13/15 11:58:00 CDT, Duration: 30 day, Stop date: 11/12/15 11:57:00 CDT Glucagon 2015-0 No 1 mg, Memoria 7-16 Route: IM, l 16:58: Drug form: [place] 00 PDR/INJ, PRN, Dosing Weight 72, kg, PRN Blood Glucose Results, Start date: 10/13/15 11:58:00 CDT, Duration: 30 day, Stop date: 11/12/15 11:57:00 CDT Insulin, 2015-0 No Notes: Memoria Aspart, 7-16 Roll in l Human 16:58: palms of [place] 00 hands gently; Do not shake vigorously . (Same as: NovoLOG) "single patient use only" WASTE: F/P - Black; E - Municipal Trash Bin Stable for 28 days at room temperatur e. Expires in days from ____Date Dextrose 2015-0 No 12.5 gm, Memor ia 50% Syringe 7-16 25 mL, l 16:58: Route: [place] 00 IVP, Drug Form: INJ, Dosing Weight 72, kg, PRN, PRN Blood Glucose Results, Start date: 10/13/15 11:58:00 CDT, Duration: 30 day, Stop date: 11/12/15 11:57:00 CDT Glucagon 0 No 1 mg, Memoria 16 Route: IM, l 16:58: Drug form: [place] 00 PDR/INJ, PRN, Dosing Weight 72, kg, PRN Blood Glucose Results, Start date: 10/13/15 11:58:00 CDT, Duration: 30 day, Stop date: 11/12/15 11:57:00 CDT Insulin, 2015-0 No Notes: Memoria Aspart, 7-16 Roll in l Human 16:58: palms of [place] 00 hands gently; Do not shake vigorously . (Same as: NovoLOG) "single patient use only" WASTE: F/P - Black; E - Municipal Trash Bin Stable for 28 days at room temperatur e. Expires in days from ____Date Dextrose No 12.5 gm, Memor ia 50% Syringe 10-12 25 mL, l 16:58: Route: [place] 00 IVP, Drug Form: INJ, Dosing Weight 72, kg, PRN, PRN Blood Glucose Results, Start date: 10/13/15 11:58:00 CDT, Duration: 30 day, Stop date: 11/12/15 11:57:00 CDT Melatonin No Notes: Memori a -16 (Same as: l 16:33: Melatonin) [place] No Notes: Memor ia Flush 0.9% 10-12 DO NOT l 16:33: USE. NO CHARGE ANESTHESIA MODULE ONLY Lactated No 1,000 mL, Aj peggy Ringers 10-12 Rate: 125 l 1,000 mL 16:33: ml/hr, Infuse over: 8 hr, Route: IV, Dosing Weight 72 kg, Total Volume: 1,000, Start date: 10/13/15 11:33:00 CDT, Duration: 30 day, Stop date: 11/12/15 11:32:00 CDT Oxycodone No Notes: Memori a Hydrochlori -16 (Same as: l de 1 MG/ML 16:33: 'Roxicodon H ermann Oral 00 e) Solution Bisacodyl No Notes: Memori a 7-16 (Same As: l 16:33: Dulcolax, [place] Bisco-Lax) Oxycodone No Notes: Memori a Hydrochlori -16 (Same as: l de 5 MG 16:33: Roxicodone Herm adriana Oral Tablet ) Methocarbam No Notes: Aj peggy ol -16 (Same l 16:33: as:Robaxin [place] ) Ondansetron No Notes: Aj peggy 7-16 (Same as: l 16:33: Zofran) MEDICATION WASTE Product Size: 4 mg Product Wasted: ___ mg Melatonin No Notes: Memori a 7-16 (Same as: l 16:33: Melatonin) [place] Saline No Notes: Memor ia Flush 0.9% 7-16 DO NOT l 16:33: USE. NO [place] CHARGE ANESTHESIA MODULE ONLY Lactated No 1,000 mL, Aj peggy Ringers 7-16 Rate: 125 l 1,000 mL 16:33: ml/hr, [place] 00 Infuse over: 8 hr, Route: IV, Dosing Weight 72 kg, Total Volume: 1,000, Start date: 10/13/15 11:33:00 CDT, Duration: 30 day, Stop date: 11/12/15 11:32:00 CDT Oxycodone No Notes: Memori a Hydrochlori 7-16 (Same as: l de 1 MG/ML 16:33: 'Roxicodon H ermann Oral 00 e) Solution Bisacodyl No Notes: Memori a 7-16 (Same As: l 16:33: Dulcolax, [place] 00 Bisco-Lax) Oxycodone No Notes: Memori a Hydrochlori 7-16 (Same as: l de 5 MG 16:33: Roxicodone Herm adriana Oral Tablet ) Methocarbam No Notes: Aj peggy ol -16 (Same l 16:33: as:Robaxin [place] ) Ondansetron No Notes: Aj peggy 7-16 (Same as: l 16:33: Zofran) [place] MEDICATION WASTE Product Size: 4 mg Product Wasted: ___ mg Melatonin No Notes: Memori a 7-16 (Same as: l 16:33: Melatonin) [place] Saline No Notes: Memor ia Flush 0.9% -16 DO NOT l 16:33: USE. NO [place] 00 CHARGE ANESTHESIA MODULE ONLY Lactated No 1,000 mL, Aj peggy Ringers -16 Rate: 125 l 1,000 mL 16:33: ml/hr, [place] 00 Infuse over: 8 hr, Route: IV, Dosing Weight 72 kg, Total Volume: 1,000, Start date: 10/13/15 11:33:00 CDT, Duration: 30 day, Stop date: 11/12/15 11:32:00 CDT Oxycodone No Notes: Memori a Hydrochlori 7-16 (Same as: l de 1 MG/ML 16:33: 'Roxicodon H ermann Oral 00 e) Solution Bisacodyl No Notes: Memori a 7-16 (Same As: l 16:33: Dulcolax, [place] 00 Bisco-Lax) Oxycodone No Notes: Memori a Hydrochlori 7-16 (Same as: l de 5 MG 16:33: Roxicodone Herm adriana Oral Tablet ) Methocarbam No Notes: Aj peggy ol -16 (Same l 16:33: as:Robaxin [place] ) Ondansetron No Notes: Aj peggy 7-16 (Same as: l 16:33: Zofran) [place] 00 MEDICATION WASTE Product Size: 4 mg Product Wasted: ___ mg Melatonin No Notes: Memori a -16 (Same as: l 16:33: Melatonin) [place] 00 Saline No Notes: Memor ia Flush 0.9% 10-12 DO NOT l 16:33: USE. NO [place] 00 CHARGE ANESTHESIA MODULE ONLY Lactated No 1,000 mL, Aj peggy Ringers 10-12 Rate: 125 l 1,000 mL 16:33: ml/hr, [place] 00 Infuse over: 8 hr, Route: IV, Dosing Weight 72 kg, Total Volume: 1,000, Start date: 10/13/15 11:33:00 CDT, Duration: 30 day, Stop date: 11/12/15 11:32:00 CDT Oxycodone No Notes: Memori a Hydrochlori 7-16 (Same as: l de 1 MG/ML 16:33: 'Roxicodon H ermann Oral 00 e) Solution Bisacodyl No Notes: Memori a 7-16 (Same As: l 16:33: Dulcolax, [place] 00 Bisco-Lax) Oxycodone No Notes: Memori a Hydrochlori -16 (Same as: l de 5 MG 16:33: Roxicodone Herm adriana Oral Tablet 00 ) Methocarbam No Notes: Aj peggy ol -16 (Same l 16:33: as:Robaxin [place] ) Ondansetron No Notes: Aj peggy 7-16 (Same as: l 16:33: Zofran) [place] 00 MEDICATION WASTE Product Size: 4 mg Product Wasted: ___ mg Melatonin No Notes: Memori a 7-16 (Same as: l 16:33: Melatonin) [place] 00 Saline No Notes: Memor ia Flush 0.9% 10-12 DO NOT l 16:33: USE. NO [place] 00 CHARGE ANESTHESIA MODULE ONLY Lactated No 1,000 mL, Aj peggy Ringers 10-12 Rate: 125 l 1,000 mL 16:33: ml/hr, Infuse over: 8 hr, Route: IV, Dosing Weight 72 kg, Total Volume: 1,000, Start date: 10/13/15 11:33:00 CDT, Duration: 30 day, Stop date: 11/12/15 11:32:00 CDT Oxycodone No Notes: Memori a Hydrochlori -16 (Same as: l de 1 MG/ML 16:33: 'Roxicodon H ermann Oral 00 e) Solution Bisacodyl No Notes: Memori a -16 (Same As: l 16:33: Dulcolax, [place] Bisco-Lax) Oxycodone No Notes: Memori a Hydrochlori -16 (Same as: l de 5 MG 16:33: Roxicodone Herm adriana Oral Tablet 00 ) Methocarbam No Notes: Aj peggy ol -16 (Same l 16:33: as:Robaxin [place] ) Ondansetron No Notes: Aj peggy 7-16 (Same as: l 16:33: Zofran) [place] MEDICATION WASTE Product Size: 4 mg Product Wasted: ___ mg Melatonin No Notes: Memori a 7-16 (Same as: l 16:33: Melatonin) [place] Saline No Notes: Memor ia Flush 0.9% 7-16 DO NOT l 16:33: USE. NO [place] CHARGE ANESTHESIA MODULE ONLY Lactated No 1,000 mL, Aj peggy Ringers -16 Rate: 125 l 1,000 mL 16:33: ml/hr, [place] 00 Infuse over: 8 hr, Route: IV, Dosing Weight 72 kg, Total Volume: 1,000, Start date: 10/13/15 11:33:00 CDT, Duration: 30 day, Stop date: 11/12/15 11:32:00 CDT Oxycodone No Notes: Memori a Hydrochlori 7-16 (Same as: l de 1 MG/ML 16:33: 'Roxicodon H ermann Oral 00 e) Solution Bisacodyl No Notes: Memori a 7-16 (Same As: l 16:33: Dulcolax, [place] 00 Bisco-Lax) Oxycodone No Notes: Memori a Hydrochlori 7-16 (Same as: l de 5 MG 16:33: Roxicodone Herm adriana Oral Tablet ) Methocarbam No Notes: Aj peggy ol -16 (Same l 16:33: as:Robaxin [place] ) Ondansetron No Notes: Aj peggy 7-16 (Same as: l 16:33: Zofran) [place] 00 MEDICATION WASTE Product Size: 4 mg Product Wasted: ___ mg Melatonin No Notes: Memori a 7-16 (Same as: l 16:33: Melatonin) [place] Saline No Notes: Memor ia Flush 0.9% 7-16 DO NOT l 16:33: USE. NO [place] CHARGE ANESTHESIA MODULE ONLY Lactated No 1,000 mL, Aj peggy Ringers -16 Rate: 125 l 1,000 mL 16:33: ml/hr, [place] 00 Infuse over: 8 hr, Route: IV, Dosing Weight 72 kg, Total Volume: 1,000, Start date: 10/13/15 11:33:00 CDT, Duration: 30 day, Stop date: 11/12/15 11:32:00 CDT Oxycodone No Notes: Memori a Hydrochlori 7-16 (Same as: l de 1 MG/ML 16:33: 'Roxicodon H ermann Oral 00 e) Solution Bisacodyl No Notes: Memori a 7-16 (Same As: l 16:33: Dulcolax, [place] Bisco-Lax) Oxycodone No Notes: Memori a Hydrochlori 7-16 (Same as: l de 5 MG 16:33: Roxicodone Herm adriana Oral Tablet 00 ) Methocarbam No Notes: Aj peggy ol -16 (Same l 16:33: as:Robaxin [place] ) Ondansetron No Notes: Aj peggy 7-16 (Same as: l 16:33: Zofran) [place] 00 MEDICATION WASTE Product Size: 4 mg Product Wasted: ___ mg Melatonin No Notes: Memori a 7-16 (Same as: l 16:33: Melatonin) [place] Saline No Notes: Memor ia Flush 0.9% 10-12 DO NOT l 16:33: USE. NO [place] 00 CHARGE ANESTHESIA MODULE ONLY Lactated No 1,000 mL, Aj peggy Ringers 10-12 Rate: 125 l 1,000 mL 16:33: ml/hr, [place] 00 Infuse over: 8 hr, Route: IV, Dosing Weight 72 kg, Total Volume: 1,000, Start date: 10/13/15 11:33:00 CDT, Duration: 30 day, Stop date: 11/12/15 11:32:00 CDT Oxycodone No Notes: Memori a Hydrochlori 7-16 (Same as: l de 1 MG/ML 16:33: 'Roxicodon H ermann Oral 00 e) Solution Bisacodyl No Notes: Memori a 7-16 (Same As: l 16:33: Dulcolax, [place] 00 Bisco-Lax) Oxycodone No Notes: Memori a Hydrochlori 7-16 (Same as: l de 5 MG 16:33: Roxicodone Herm adriana Oral Tablet 00 ) Methocarbam No Notes: Aj peggy ol -16 (Same l 16:33: as:Robaxin [place] ) Ondansetron No Notes: Aj peggy 7-16 (Same as: l 16:33: Zofran) [place] 00 MEDICATION WASTE Product Size: 4 mg Product Wasted: ___ mg Melatonin No Notes: Memori a -16 (Same as: l 16:33: Melatonin) [place] 00 Saline No Notes: Memor ia Flush 0.9% 10-12 DO NOT l 16:33: USE. NO CHARGE ANESTHESIA MODULE ONLY Lactated No 1,000 mL, Aj peggy Ringers 10-12 Rate: 125 l 1,000 mL 16:33: ml/hr, Infuse over: 8 hr, Route: IV, Dosing Weight 72 kg, Total Volume: 1,000, Start date: 10/13/15 11:33:00 CDT, Duration: 30 day, Stop date: 11/12/15 11:32:00 CDT Oxycodone No Notes: Memori a Hydrochlori -16 (Same as: l de 1 MG/ML 16:33: 'Roxicodon H ermann Oral 00 e) Solution Bisacodyl No Notes: Memori a -16 (Same As: l 16:33: Dulcolax, [place] Bisco-Lax) Oxycodone No Notes: Memori a Hydrochlori -16 (Same as: l de 5 MG 16:33: Roxicodone Herm adriana Oral Tablet 00 ) Methocarbam No Notes: Aj peggy ol -16 (Same l 16:33: as:Robaxin [place] ) Ondansetron No Notes: Aj peggy -16 (Same as: l 16:33: Zofran) [place] 00 MEDICATION WASTE Product Size: 4 mg Product Wasted: ___ mg Melatonin No Notes: Memori a 7-16 (Same as: l 16:33: Melatonin) [place] 00 Saline No Notes: Memor ia Flush 0.9% - DO NOT l 16:33: USE. NO CHARGE ANESTHESIA MODULE ONLY Lactated No 1,000 mL, Aj peggy Ringers 10-12 Rate: 125 l 1,000 mL 16:33: ml/hr, [place] 00 Infuse over: 8 hr, Route: IV, Dosing Weight 72 kg, Total Volume: 1,000, Start date: 10/13/15 11:33:00 CDT, Duration: 30 day, Stop date: 11/12/15 11:32:00 CDT Oxycodone No Notes: Memori a Hydrochlori -16 (Same as: l de 1 MG/ML 16:33: 'Roxicodon H ermann Oral 00 e) Solution Bisacodyl No Notes: Memori a 7-16 (Same As: l 16:33: Dulcolax, [place] Bisco-Lax) Oxycodone No Notes: Memori a Hydrochlori -16 (Same as: l de 5 MG 16:33: Roxicodone Herm adriana Oral Tablet ) Methocarbam No Notes: Aj peggy ol -16 (Same l 16:33: as:Robaxin [place] ) Ondansetron No Notes: Aj peggy 7-16 (Same as: l 16:33: Zofran) MEDICATION WASTE Product Size: 4 mg Product Wasted: ___ mg Melatonin No Notes: Memori a 7-16 (Same as: l 16:33: Melatonin) [place] 00 Saline No Notes: Memor ia Flush 0.9% - DO NOT l 16:33: USE. NO [place] 00 CHARGE ANESTHESIA MODULE ONLY Lactated No 1,000 mL, Aj peggy Ringers 10-12 Rate: 125 l 1,000 mL 16:33: ml/hr, [place] Infuse over: 8 hr, Route: IV, Dosing Weight 72 kg, Total Volume: 1,000, Start date: 10/13/15 11:33:00 CDT, Duration: 30 day, Stop date: 11/12/15 11:32:00 CDT Melatonin No Notes: Memori a 7-16 (Same as: l 16:33: Melatonin) [place] 00 Oxycodone No Notes: Memori a Hydrochlori 7-16 (Same as: l de 1 MG/ML 16:33: 'Roxicodon H ermann Oral 00 e) Solution Bisacodyl No Notes: Memori a 7-16 (Same As: l 16:33: Dulcolax, [place] Bisco-Lax) Oxycodone No Notes: Memori a Hydrochlori -16 (Same as: l de 5 MG 16:33: Roxicodone Herm adriana Oral Tablet 00 ) Methocarbam No Notes: Aj peggy ol -16 (Same l 16:33: as:Robaxin ) Ondansetron No Notes: Aj peggy -16 (Same as: l 16:33: Zofran) MEDICATION WASTE Product Size: 4 mg Product Wasted: ___ mg Saline No Notes: Memor ia Flush 0.9% 10-12 DO NOT l 16:33: USE. NO CHARGE ANESTHESIA MODULE ONLY Lactated No 1,000 mL, Aj peggy Ringers 10-12 Rate: 125 l 1,000 mL 16:33: ml/hr, Infuse over: 8 hr, Route: IV, Dosing Weight 72 kg, Total Volume: 1,000, Start date: 10/13/15 11:33:00 CDT, Duration: 30 day, Stop date: 11/12/15 11:32:00 CDT Oxycodone No Notes: Memori a Hydrochlori 7-16 (Same as: l de 1 MG/ML 16:33: 'Roxicodon H ermann Oral 00 e) Solution Bisacodyl No Notes: Memori a 7-16 (Same As: l 16:33: Dulcolax, [place] 00 Bisco-Lax) Oxycodone No Notes: Memori a Hydrochlori 7-16 (Same as: l de 5 MG 16:33: Roxicodone Herm adriana Oral Tablet 00 ) Methocarbam No Notes: Aj peggy ol -16 (Same l 16:33: as:Robaxin [place] ) Ondansetron No Notes: Aj peggy 7-16 (Same as: l 16:33: Zofran) MEDICATION WASTE Product Size: 4 mg Product Wasted: ___ mg Melatonin No Notes: Memori a -16 (Same as: l 16:33: Melatonin) [place] 00 Saline No Notes: Memor ia Flush 0.9% 10-12 DO NOT l 16:33: USE. NO CHARGE ANESTHESIA MODULE ONLY Lactated No 1,000 mL, Aj peggy Ringers 10-12 Rate: 125 l 1,000 mL 16:33: ml/hr, Infuse over: 8 hr, Route: IV, Dosing Weight 72 kg, Total Volume: 1,000, Start date: 10/13/15 11:33:00 CDT, Duration: 30 day, Stop date: 11/12/15 11:32:00 CDT Oxycodone No Notes: Memori a Hydrochlori -16 (Same as: l de 1 MG/ML 16:33: 'Roxicodon H ermann Oral 00 e) Solution Bisacodyl No Notes: Memori a 7-16 (Same As: l 16:33: Dulcolax, [place] Bisco-Lax) Oxycodone No Notes: Memori a Hydrochlori -16 (Same as: l de 5 MG 16:33: Roxicodone Herm adriana Oral Tablet ) Methocarbam No Notes: Aj peggy ol -16 (Same l 16:33: as:Robaxin [place] ) Ondansetron No Notes: Aj peggy 7-16 (Same as: l 16:33: Zofran) MEDICATION WASTE Product Size: 4 mg Product Wasted: ___ mg Melatonin No Notes: Memori a 7-16 (Same as: l 16:33: Melatonin) [place] Saline No Notes: Memor ia Flush 0.9% 7-16 DO NOT l 16:33: USE. NO [place] CHARGE ANESTHESIA MODULE ONLY Lactated No 1,000 mL, Aj peggy Ringers 7-16 Rate: 125 l 1,000 mL 16:33: ml/hr, [place] 00 Infuse over: 8 hr, Route: IV, Dosing Weight 72 kg, Total Volume: 1,000, Start date: 10/13/15 11:33:00 CDT, Duration: 30 day, Stop date: 11/12/15 11:32:00 CDT Oxycodone No Notes: Memori a Hydrochlori 7-16 (Same as: l de 1 MG/ML 16:33: 'Roxicodon H ermann Oral 00 e) Solution Bisacodyl No Notes: Memori a 7-16 (Same As: l 16:33: Dulcolax, [place] 00 Bisco-Lax) Oxycodone No Notes: Memori a Hydrochlori 7-16 (Same as: l de 5 MG 16:33: Roxicodone Herm adriana Oral Tablet ) Methocarbam No Notes: Aj peggy ol -16 (Same l 16:33: as:Robaxin [place] ) Ondansetron No Notes: Aj peggy 7-16 (Same as: l 16:33: Zofran) [place] 00 MEDICATION WASTE Product Size: 4 mg Product Wasted: ___ mg Melatonin No Notes: Memori a 7-16 (Same as: l 16:33: Melatonin) [place] Saline No Notes: Memor ia Flush 0.9% 7-16 DO NOT l 16:33: USE. NO [place] 00 CHARGE ANESTHESIA MODULE ONLY Lactated No 1,000 mL, Aj epggy Ringers 7-16 Rate: 125 l 1,000 mL 16:33: ml/hr, [place] 00 Infuse over: 8 hr, Route: IV, Dosing Weight 72 kg, Total Volume: 1,000, Start date: 10/13/15 11:33:00 CDT, Duration: 30 day, Stop date: 11/12/15 11:32:00 CDT Oxycodone No Notes: Memori a Hydrochlori -16 (Same as: l de 1 MG/ML 16:33: 'Roxicodon H ermann Oral 00 e) Solution Bisacodyl No Notes: Memori a 7-16 (Same As: l 16:33: Dulcolax, [place] 00 Bisco-Lax) Oxycodone No Notes: Memori a Hydrochlori -16 (Same as: l de 5 MG 16:33: Roxicodone Herm adriana Oral Tablet 00 ) Methocarbam No Notes: Aj peggy ol -16 (Same l 16:33: as:Robaxin [place] ) Ondansetron No Notes: Aj peggy 7-16 (Same as: l 16:33: Zofran) [place] 00 MEDICATION WASTE Product Size: 4 mg Product Wasted: ___ mg Melatonin No Notes: Memori a -16 (Same as: l 16:33: Melatonin) [place] 00 Saline No Notes: Memor ia Flush 0.9% 10-12 DO NOT l 16:33: USE. NO [place] 00 CHARGE ANESTHESIA MODULE ONLY Lactated No 1,000 mL, Aj peggy Ringers 10-12 Rate: 125 l 1,000 mL 16:33: ml/hr, [place] 00 Infuse over: 8 hr, Route: IV, Dosing Weight 72 kg, Total Volume: 1,000, Start date: 10/13/15 11:33:00 CDT, Duration: 30 day, Stop date: 11/12/15 11:32:00 CDT Oxycodone No Notes: Memori a Hydrochlori -16 (Same as: l de 1 MG/ML 16:33: 'Roxicodon H ermann Oral 00 e) Solution Bisacodyl No Notes: Memori a 7-16 (Same As: l 16:33: Dulcolax, [place] 00 Bisco-Lax) Oxycodone No Notes: Memori a Hydrochlori -16 (Same as: l de 5 MG 16:33: Roxicodone Herm adriana Oral Tablet 00 ) Methocarbam No Notes: Aj peggy ol 7-16 (Same l 16:33: as:Robaxin [place] ) Ondansetron No Notes: Aj peggy 7-16 (Same as: l 16:33: Zofran) [place] MEDICATION WASTE Product Size: 4 mg Product Wasted: ___ mg Melatonin No Notes: Memori a 7-16 (Same as: l 16:33: Melatonin) [place] Saline No Notes: Memor ia Flush 0.9% 10-12 DO NOT l 16:33: USE. NO [place] CHARGE ANESTHESIA MODULE ONLY Lactated No 1,000 mL, Aj peggy Ringers 10-12 Rate: 125 l 1,000 mL 16:33: ml/hr, Infuse over: 8 hr, Route: IV, Dosing Weight 72 kg, Total Volume: 1,000, Start date: 10/13/15 11:33:00 CDT, Duration: 30 day, Stop date: 11/12/15 11:32:00 CDT Oxycodone No Notes: Memori a Hydrochlori -16 (Same as: l de 1 MG/ML 16:33: 'Roxicodon H ermann Oral 00 e) Solution Bisacodyl No Notes: Memori a 7-16 (Same As: l 16:33: Dulcolax, [place] 00 Bisco-Lax) Oxycodone No Notes: Memori a Hydrochlori -16 (Same as: l de 5 MG 16:33: Roxicodone Herm adriana Oral Tablet ) Methocarbam No Notes: Aj peggy ol -16 (Same l 16:33: as:Robaxin [place] ) Ondansetron No Notes: Aj peggy 7-16 (Same as: l 16:33: Zofran) [place] MEDICATION WASTE Product Size: 4 mg Product Wasted: ___ mg Melatonin No Notes: Memori a 7-16 (Same as: l 16:33: Melatonin) [place] Saline No Notes: Memor ia Flush 0.9% 7-16 DO NOT l 16:33: USE. NO [place] CHARGE ANESTHESIA MODULE ONLY Lactated No 1,000 mL, Aj peggy Ringers - Rate: 125 l 1,000 mL 16:33: ml/hr, [place] 00 Infuse over: 8 hr, Route: IV, Dosing Weight 72 kg, Total Volume: 1,000, Start date: 10/13/15 11:33:00 CDT, Duration: 30 day, Stop date: 11/12/15 11:32:00 CDT Oxycodone No Notes: Memori a Hydrochlori -16 (Same as: l de 1 MG/ML 16:33: 'Roxicodon H ermann Oral 00 e) Solution Bisacodyl No Notes: Memori a 7-16 (Same As: l 16:33: Dulcolax, [place] 00 Bisco-Lax) Oxycodone No Notes: Memori a Hydrochlori -16 (Same as: l de 5 MG 16:33: Roxicodone Herm adriana Oral Tablet ) Methocarbam No Notes: Aj peggy ol -16 (Same l 16:33: as:Robaxin [place] ) Ondansetron No Notes: Aj peggy 7-16 (Same as: l 16:33: Zofran) [place] 00 MEDICATION WASTE Product Size: 4 mg Product Wasted: ___ mg Melatonin No Notes: Memori a 7-16 (Same as: l 16:33: Melatonin) [place] Saline No Notes: Memor ia Flush 0.9% -16 DO NOT l 16:33: USE. NO [place] 00 CHARGE ANESTHESIA MODULE ONLY Lactated No 1,000 mL, Aj peggy Ringers -16 Rate: 125 l 1,000 mL 16:33: ml/hr, [place] 00 Infuse over: 8 hr, Route: IV, Dosing Weight 72 kg, Total Volume: 1,000, Start date: 10/13/15 11:33:00 CDT, Duration: 30 day, Stop date: 11/12/15 11:32:00 CDT Oxycodone No Notes: Memori a Hydrochlori -16 (Same as: l de 1 MG/ML 16:33: 'Roxicodon H ermann Oral 00 e) Solution Bisacodyl No Notes: Memori a 7-16 (Same As: l 16:33: Dulcolax, [place] 00 Bisco-Lax) Oxycodone No Notes: Memori a Hydrochlori -16 (Same as: l de 5 MG 16:33: Roxicodone Herm adriana Oral Tablet 00 ) Methocarbam No Notes: Aj peggy ol -16 (Same l 16:33: as:Robaxin Rodney ) Ondansetron No Notes: Aj peggy -16 (Same as: l 16:33: Zofran) [place] 00 MEDICATION WASTE Product Size: 4 mg Product Wasted: ___ mg Melatonin No Notes: Memori a -16 (Same as: l 16:33: Melatonin) [place] 00 Saline No Notes: Memor ia Flush 0.9% 10-12 DO NOT l 16:33: USE. NO [place] 00 CHARGE ANESTHESIA MODULE ONLY Lactated No 1,000 mL, Aj peggy Ringers 10-12 Rate: 125 l 1,000 mL 16:33: ml/hr, [place]ney 00 Infuse over: 8 hr, Route: IV, Dosing Weight 72 kg, Total Volume: 1,000, Start date: 10/13/15 11:33:00 CDT, Duration: 30 day, Stop date: 11/12/15 11:32:00 CDT Oxycodone No Notes: Memori a Hydrochlori -16 (Same as: l de 1 MG/ML 16:33: 'Roxicodon H ermann Oral 00 e) Solution Bisacodyl No Notes: Memori a 7-16 (Same As: l 16:33: Dulcolax, [place] 00 Bisco-Lax) Oxycodone No Notes: Memori a Hydrochlori -16 (Same as: l de 5 MG 16:33: Roxicodone Herm adriana Oral Tablet 00 ) Methocarbam No Notes: Aj peggy ol 7-16 (Same l 16:33: as:Robaxin [place] 00 ) Ondansetron No Notes: Aj peggy 7-16 (Same as: l 16:33: Zofran) [place] 00 MEDICATION WASTE Product Size: 4 mg Product Wasted: ___ mg Melatonin No Notes: Memori a 7-16 (Same as: l 16:33: Melatonin) Rodney Saline No Notes: Memor ia Flush 0.9% -16 DO NOT l 16:33: USE. NO [place] CHARGE ANESTHESIA MODULE ONLY Lactated No 1,000 mL, Aj peggy Ringers 10-12 Rate: 125 l 1,000 mL 16:33: ml/hr, [place] 00 Infuse over: 8 hr, Route: IV, Dosing Weight 72 kg, Total Volume: 1,000, Start date: 10/13/15 11:33:00 CDT, Duration: 30 day, Stop date: 11/12/15 11:32:00 CDT Oxycodone No Notes: Memori a Hydrochlori -16 (Same as: l de 1 MG/ML 16:33: 'Roxicodon H ermann Oral 00 e) Solution Bisacodyl No Notes: Memori a 7-16 (Same As: l 16:33: Dulcolax, [place] 00 Bisco-Lax) Oxycodone No Notes: Memori a Hydrochlori 7-16 (Same as: l de 5 MG 16:33: Roxicodone Herm adriana Oral Tablet 00 ) Methocarbam No Notes: Aj peggy ol -16 (Same l 16:33: as:Robaxin [place] 00 ) Ondansetron No Notes: Aj peggy 7-16 (Same as: l 16:33: Zofran) [place] 00 MEDICATION WASTE Product Size: 4 mg Product Wasted: ___ mg Melatonin No Notes: Memori a 7-16 (Same as: l 16:33: Melatonin) [place] 00 Saline No Notes: Memor ia Flush 0.9% -16 DO NOT l 16:33: USE. NO [place] 00 CHARGE ANESTHESIA MODULE ONLY Lactated No 1,000 mL, Aj peggy Ringers -16 Rate: 125 l 1,000 mL 16:33: ml/hr, [place] 00 Infuse over: 8 hr, Route: IV, Dosing Weight 72 kg, Total Volume: 1,000, Start date: 10/13/15 11:33:00 CDT, Duration: 30 day, Stop date: 11/12/15 11:32:00 CDT Oxycodone No Notes: Memori a Hydrochlori -16 (Same as: l de 1 MG/ML 16:33: 'Roxicodon H ermann Oral e) Solution Bisacodyl No Notes: Memori a 7-16 (Same As: l 16:33: Dulcolax, [place] Bisco-Lax) Oxycodone No Notes: Memori a Hydrochlori 7-16 (Same as: l de 5 MG 16:33: Roxicodone Herm adriana Oral Tablet ) Methocarbam No Notes: Aj peggy ol -16 (Same l 16:33: as:Robaxin [place] ) Ondansetron No Notes: Aj peggy 7-16 (Same as: l 16:33: Zofran) [place] 00 MEDICATION WASTE Product Size: 4 mg Product Wasted: ___ mg Melatonin No Notes: Memori a 7-16 (Same as: l 16:33: Melatonin) [place] 00 Saline No Notes: Memor ia Flush 0.9% 10-12 DO NOT l 16:33: USE. NO [place] 00 CHARGE ANESTHESIA MODULE ONLY Lactated No 1,000 mL, Aj peggy Ringers -16 Rate: 125 l 1,000 mL 16:33: ml/hr, [place] 00 Infuse over: 8 hr, Route: IV, Dosing Weight 72 kg, Total Volume: 1,000, Start date: 10/13/15 11:33:00 CDT, Duration: 30 day, Stop date: 11/12/15 11:32:00 CDT Oxycodone No Notes: Memori a Hydrochlori 7-16 (Same as: l de 1 MG/ML 16:33: 'Roxicodon H ermann Oral 00 e) Solution Bisacodyl No Notes: Memori a 7-16 (Same As: l 16:33: Dulcolax, [place] Bisco-Lax) Oxycodone No Notes: Memori a Hydrochlori -16 (Same as: l de 5 MG 16:33: Roxicodone Herm adriana Oral Tablet 00 ) Methocarbam No Notes: Aj pgegy ol -16 (Same l 16:33: as:Robaxin [place] ) Ondansetron No Notes: Aj peggy 7-16 (Same as: l 16:33: Zofran) [place] 00 MEDICATION WASTE Product Size: 4 mg Product Wasted: ___ mg Melatonin No Notes: Memori a -16 (Same as: l 16:33: Melatonin) [place] 00 Saline No Notes: Memor ia Flush 0.9% 10-12 DO NOT l 16:33: USE. NO [place] 00 CHARGE ANESTHESIA MODULE ONLY Lactated No 1,000 mL, Aj peggy Ringers 10-12 Rate: 125 l 1,000 mL 16:33: ml/hr, [place] 00 Infuse over: 8 hr, Route: IV, Dosing Weight 72 kg, Total Volume: 1,000, Start date: 10/13/15 11:33:00 CDT, Duration: 30 day, Stop date: 11/12/15 11:32:00 CDT Oxycodone No Notes: Memori a Hydrochlori -16 (Same as: l de 1 MG/ML 16:33: 'Roxicodon H ermann Oral 00 e) Solution Bisacodyl No Notes: Memori a 7-16 (Same As: l 16:33: Dulcolax, [place] Bisco-Lax) Oxycodone No Notes: Memori a Hydrochlori -16 (Same as: l de 5 MG 16:33: Roxicodone Herm adriana Oral Tablet 00 ) Methocarbam No Notes: Aj peggy ol -16 (Same l 16:33: as:Robaxin [place] ) Ondansetron No Notes: Aj peggy 7-16 (Same as: l 16:33: Zofran) [place] MEDICATION WASTE Product Size: 4 mg Product Wasted: ___ mg Melatonin No Notes: Memori a 7-16 (Same as: l 16:33: Melatonin) [place] Saline No Notes: Memor ia Flush 0.9% 7-16 DO NOT l 16:33: USE. NO [place] 00 CHARGE ANESTHESIA MODULE ONLY Lactated No 1,000 mL, Aj peggy Ringers 10-12 Rate: 125 l 1,000 mL 16:33: ml/hr, Infuse over: 8 hr, Route: IV, Dosing Weight 72 kg, Total Volume: 1,000, Start date: 10/13/15 11:33:00 CDT, Duration: 30 day, Stop date: 11/12/15 11:32:00 CDT Oxycodone No Notes: Memori a Hydrochlori 7-16 (Same as: l de 1 MG/ML 16:33: 'Roxicodon H ermann Oral 00 e) Solution Bisacodyl No Notes: Memori a 7-16 (Same As: l 16:33: Dulcolax, [place] 00 Bisco-Lax) Oxycodone No Notes: Memori a Hydrochlori 7-16 (Same as: l de 5 MG 16:33: Roxicodone Herm adriana Oral Tablet ) Methocarbam No Notes: Aj peggy ol -16 (Same l 16:33: as:Robaxin [place] ) Ondansetron No Notes: Aj peggy 7-16 (Same as: l 16:33: Zofran) [place] MEDICATION WASTE Product Size: 4 mg Product Wasted: ___ mg Melatonin No Notes: Memori a 7-16 (Same as: l 16:33: Melatonin) [place] Saline No Notes: Memor ia Flush 0.9% 7-16 DO NOT l 16:33: USE. NO [place] CHARGE ANESTHESIA MODULE ONLY Lactated No 1,000 mL, Aj peggy Ringers -16 Rate: 125 l 1,000 mL 16:33: ml/hr, [place] Infuse over: 8 hr, Route: IV, Dosing Weight 72 kg, Total Volume: 1,000, Start date: 10/13/15 11:33:00 CDT, Duration: 30 day, Stop date: 11/12/15 11:32:00 CDT Oxycodone No Notes: Memori a Hydrochlori 7-16 (Same as: l de 1 MG/ML 16:33: 'Roxicodon H ermann Oral 00 e) Solution Bisacodyl No Notes: Memori a 7-16 (Same As: l 16:33: Dulcolax, [place] Bisco-Lax) Oxycodone No Notes: Memori a Hydrochlori 7-16 (Same as: l de 5 MG 16:33: Roxicodone Herm adriana Oral Tablet ) Methocarbam No Notes: Aj peggy ol -16 (Same l 16:33: as:Robaxin [place] ) Ondansetron No Notes: Aj peggy 7-16 (Same as: l 16:33: Zofran) [place] 00 MEDICATION WASTE Product Size: 4 mg Product Wasted: ___ mg Melatonin No Notes: Memori a 7-16 (Same as: l 16:33: Melatonin) [place] Saline No Notes: Memor ia Flush 0.9% 10-12 DO NOT l 16:33: USE. NO [place] CHARGE ANESTHESIA MODULE ONLY Lactated No 1,000 mL, Aj peggy Ringers -16 Rate: 125 l 1,000 mL 16:33: ml/hr, [place] 00 Infuse over: 8 hr, Route: IV, Dosing Weight 72 kg, Total Volume: 1,000, Start date: 10/13/15 11:33:00 CDT, Duration: 30 day, Stop date: 11/12/15 11:32:00 CDT Oxycodone No Notes: Memori a Hydrochlori 7-16 (Same as: l de 1 MG/ML 16:33: 'Roxicodon H ermann Oral 00 e) Solution Bisacodyl No Notes: Memori a 7-16 (Same As: l 16:33: Dulcolax, [place] Bisco-Lax) Oxycodone No Notes: Memori a Hydrochlori 7-16 (Same as: l de 5 MG 16:33: Roxicodone Herm adriana Oral Tablet 00 ) Methocarbam No Notes: Aj peggy ol -16 (Same l 16:33: as:Robaxin [place] ) Ondansetron No Notes: Aj peggy 7-16 (Same as: l 16:33: Zofran) [place] 00 MEDICATION WASTE Product Size: 4 mg Product Wasted: ___ mg Melatonin No Notes: Memori a 7-16 (Same as: l 16:33: Melatonin) [place] 00 Saline No Notes: Memor ia Flush 0.9% 10-12 DO NOT l 16:33: USE. NO CHARGE ANESTHESIA MODULE ONLY Lactated No 1,000 mL, Aj peggy Ringers 10-12 Rate: 125 l 1,000 mL 16:33: ml/hr, Infuse over: 8 hr, Route: IV, Dosing Weight 72 kg, Total Volume: 1,000, Start date: 10/13/15 11:33:00 CDT, Duration: 30 day, Stop date: 11/12/15 11:32:00 CDT Oxycodone No Notes: Memori a Hydrochlori -16 (Same as: l de 1 MG/ML 16:33: 'Roxicodon H ermann Oral 00 e) Solution Bisacodyl No Notes: Memori a 7-16 (Same As: l 16:33: Dulcolax, [place] 00 Bisco-Lax) Oxycodone No Notes: Memori a Hydrochlori -16 (Same as: l de 5 MG 16:33: Roxicodone Herm adriana Oral Tablet 00 ) Methocarbam No Notes: Aj peggy ol -16 (Same l 16:33: as:Robaxin [place] ) Ondansetron No Notes: Aj peggy 7-16 (Same as: l 16:33: Zofran) [place] MEDICATION WASTE Product Size: 4 mg Product Wasted: ___ mg Melatonin No Notes: Memori a 7-16 (Same as: l 16:33: Melatonin) [place] 00 Saline No Notes: Memor ia Flush 0.9% 16 DO NOT l 16:33: USE. NO CHARGE ANESTHESIA MODULE ONLY Lactated No 1,000 mL, Aj peggy Ringers 10-12 Rate: 125 l 1,000 mL 16:33: ml/hr, Infuse over: 8 hr, Route: IV, Dosing Weight 72 kg, Total Volume: 1,000, Start date: 10/13/15 11:33:00 CDT, Duration: 30 day, Stop date: 11/12/15 11:32:00 CDT Oxycodone No Notes: Memori a Hydrochlori -16 (Same as: l de 1 MG/ML 16:33: 'Roxicodon H ermann Oral 00 e) Solution Bisacodyl No Notes: Memori a 7-16 (Same As: l 16:33: Dulcolax, [place] Bisco-Lax) Oxycodone No Notes: Memori a Hydrochlori 7-16 (Same as: l de 5 MG 16:33: Roxicodone Herm adriana Oral Tablet 00 ) Methocarbam No Notes: Aj peggy ol -16 (Same l 16:33: as:Robaxin [place] ) Ondansetron No Notes: Aj peggy 7-16 (Same as: l 16:33: Zofran) [place] 00 MEDICATION WASTE Product Size: 4 mg Product Wasted: ___ mg Melatonin No Notes: Memori a 7-16 (Same as: l 16:33: Melatonin) [place] 00 Saline No Notes: Memor ia Flush 0.9% -16 DO NOT l 16:33: USE. NO [place] 00 CHARGE ANESTHESIA MODULE ONLY Lactated No 1,000 mL, Aj peggy Ringers -16 Rate: 125 l 1,000 mL 16:33: ml/hr, [place] Infuse over: 8 hr, Route: IV, Dosing Weight 72 kg, Total Volume: 1,000, Start date: 10/13/15 11:33:00 CDT, Duration: 30 day, Stop date: 11/12/15 11:32:00 CDT Oxycodone No Notes: Memori a Hydrochlori -16 (Same as: l de 1 MG/ML 16:33: 'Roxicodon H ermann Oral 00 e) Solution Bisacodyl No Notes: Memori a 7-16 (Same As: l 16:33: Dulcolax, [place] Bisco-Lax) Oxycodone No Notes: Memori a Hydrochlori -16 (Same as: l de 5 MG 16:33: Roxicodone Herm adriana Oral Tablet ) Methocarbam No Notes: Aj peggy ol -16 (Same l 16:33: as:Robaxin [place] ) Ondansetron No Notes: Aj peggy 7-16 (Same as: l 16:33: Zofran) [place] 00 MEDICATION WASTE Product Size: 4 mg Product Wasted: ___ mg Melatonin No Notes: Memori a 7-16 (Same as: l 16:33: Melatonin) [place] 00 Melatonin No Notes: Memori a 7-16 (Same as: l 16:33: Melatonin) Saline No Notes: Memor ia Flush 0.9% 10-12 DO NOT l 16:33: USE. NO CHARGE ANESTHESIA MODULE ONLY Lactated No 1,000 mL, Aj peggy Ringers - Rate: 125 l 1,000 mL 16:33: ml/hr, [place] Infuse over: 8 hr, Route: IV, Dosing Weight 72 kg, Total Volume: 1,000, Start date: 10/13/15 11:33:00 CDT, Duration: 30 day, Stop date: 11/12/15 11:32:00 CDT Oxycodone No Notes: Memori a Hydrochlori 7-16 (Same as: l de 1 MG/ML 16:33: 'Roxicodon H ermann Oral 00 e) Solution Bisacodyl No Notes: Memori a 7-16 (Same As: l 16:33: Dulcolax, [place] 00 Bisco-Lax) Oxycodone No Notes: Memori a Hydrochlori 7-16 (Same as: l de 5 MG 16:33: Roxicodone Herm adriana Oral Tablet 00 ) Methocarbam No Notes: Aj peggy ol 7-16 (Same l 16:33: as:Robaxin [place] ) Ondansetron No Notes: Aj peggy 7-16 (Same as: l 16:33: Zofran) [place] 00 MEDICATION WASTE Product Size: 4 mg Product Wasted: ___ mg Saline No Notes: Memor ia Flush 0.9% 7-16 DO NOT l 16:33: USE. NO [place] 00 CHARGE ANESTHESIA MODULE ONLY Lactated No 1,000 mL, Aj peggy Ringers 7-16 Rate: 125 l 1,000 mL 16:33: ml/hr, [place] 00 Infuse over: 8 hr, Route: IV, Dosing Weight 72 kg, Total Volume: 1,000, Start date: 10/13/15 11:33:00 CDT, Duration: 30 day, Stop date: 11/12/15 11:32:00 CDT Oxycodone No Notes: Memori a Hydrochlori 7-16 (Same as: l de 1 MG/ML 16:33: 'Roxicodon H ermann Oral 00 e) Solution Melatonin No Notes: Memori a 7-16 (Same as: l 16:33: Melatonin) [place] 00 Saline No Notes: Memor ia Flush 0.9% 7-16 DO NOT l 16:33: USE. NO [place] 00 CHARGE ANESTHESIA MODULE ONLY Lactated No 1,000 mL, Aj peggy Ringers 7-16 Rate: 125 l 1,000 mL 16:33: ml/hr, [place] 00 Infuse over: 8 hr, Route: IV, Dosing Weight 72 kg, Total Volume: 1,000, Start date: 10/13/15 11:33:00 CDT, Duration: 30 day, Stop date: 11/12/15 11:32:00 CDT Oxycodone No Notes: Memori a Hydrochlori 7-16 (Same as: l de 1 MG/ML 16:33: 'Roxicodon H ermann Oral 00 e) Solution Bisacodyl No Notes: Memori a 7-16 (Same As: l 16:33: Dulcolax, [place] 00 Bisco-Lax) Oxycodone No Notes: Memori a Hydrochlori 7-16 (Same as: l de 5 MG 16:33: Roxicodone Herm adriana Oral Tablet ) Methocarbam No Notes: Aj peggy ol 7-16 (Same l 16:33: as:Robaxin [place] ) Ondansetron No Notes: Aj peggy 7-16 (Same as: l 16:33: Zofran) MEDICATION WASTE Product Size: 4 mg Product Wasted: ___ mg Bisacodyl No Notes: Memori a 7-16 (Same As: l 16:33: Dulcolax, [place] 00 Bisco-Lax) Oxycodone No Notes: Memori a Hydrochlori 7-16 (Same as: l de 5 MG 16:33: Roxicodone Herm adriana Oral Tablet ) Methocarbam No Notes: Aj peggy ol -16 (Same l 16:33: as:Robaxin [place] ) Melatonin No Notes: Memori a 7-16 (Same as: l 16:33: Melatonin) Saline No Notes: Memor ia Flush 0.9% 10-12 DO NOT l 16:33: USE. NO CHARGE ANESTHESIA MODULE ONLY Lactated No 1,000 mL, Aj peggy Ringers - Rate: 125 l 1,000 mL 16:33: ml/hr, Infuse over: 8 hr, Route: IV, Dosing Weight 72 kg, Total Volume: 1,000, Start date: 10/13/15 11:33:00 CDT, Duration: 30 day, Stop date: 11/12/15 11:32:00 CDT Oxycodone No Notes: Memori a Hydrochlori 7-16 (Same as: l de 1 MG/ML 16:33: 'Roxicodon H ermann Oral 00 e) Solution Bisacodyl No Notes: Memori a 7-16 (Same As: l 16:33: Dulcolax, [place] 00 Bisco-Lax) Oxycodone No Notes: Memori a Hydrochlori 7-16 (Same as: l de 5 MG 16:33: Roxicodone Herm adriana Oral Tablet 00 ) Methocarbam No Notes: Aj peggy ol -16 (Same l 16:33: as:Robaxin [place] ) Ondansetron No Notes: Aj peggy 7-16 (Same as: l 16:33: Zofran) [place] 00 MEDICATION WASTE Product Size: 4 mg Product Wasted: ___ mg Ondansetron No Notes: Aj peggy 7-16 (Same as: l 16:33: Zofran) [place] 00 MEDICATION WASTE Product Size: 4 mg Product Wasted: ___ mg Melatonin No Notes: Memori a 7-16 (Same as: l 16:33: Melatonin) [place] 00 Saline No Notes: Memor ia Flush 0.9% 10-12 DO NOT l 16:33: USE. NO [place] 00 CHARGE ANESTHESIA MODULE ONLY Lactated No 1,000 mL, Aj peggy Ringers 10-12 Rate: 125 l 1,000 mL 16:33: ml/hr, [place] 00 Infuse over: 8 hr, Route: IV, Dosing Weight 72 kg, Total Volume: 1,000, Start date: 10/13/15 11:33:00 CDT, Duration: 30 day, Stop date: 11/12/15 11:32:00 CDT Oxycodone No Notes: Memori a Hydrochlori 7-16 (Same as: l de 1 MG/ML 16:33: 'Roxicodon H ermann Oral 00 e) Solution Bisacodyl No Notes: Memori a 7-16 (Same As: l 16:33: Dulcolax, [place] 00 Bisco-Lax) Oxycodone No Notes: Memori a Hydrochlori -16 (Same as: l de 5 MG 16:33: Roxicodone Herm adriana Oral Tablet 00 ) Methocarbam No Notes: Aj peggy ol -16 (Same l 16:33: as:Robaxin [place] ) Ondansetron No Notes: Aj peggy 7-16 (Same as: l 16:33: Zofran) [place] 00 MEDICATION WASTE Product Size: 4 mg Product Wasted: ___ mg Melatonin No Notes: Memori a -16 (Same as: l 16:33: Melatonin) [place] 00 Saline No Notes: Memor ia Flush 0.9% 10-12 DO NOT l 16:33: USE. NO CHARGE ANESTHESIA MODULE ONLY Lactated No 1,000 mL, Aj peggy Ringers 10-12 Rate: 125 l 1,000 mL 16:33: ml/hr, Infuse over: 8 hr, Route: IV, Dosing Weight 72 kg, Total Volume: 1,000, Start date: 10/13/15 11:33:00 CDT, Duration: 30 day, Stop date: 11/12/15 11:32:00 CDT Oxycodone No Notes: Memori a Hydrochlori -16 (Same as: l de 1 MG/ML 16:33: 'Roxicodon H ermann Oral 00 e) Solution Bisacodyl No Notes: Memori a 7-16 (Same As: l 16:33: Dulcolax, [place] 00 Bisco-Lax) Oxycodone No Notes: Memori a Hydrochlori -16 (Same as: l de 5 MG 16:33: Roxicodone Herm adriana Oral Tablet ) Methocarbam No Notes: Aj peggy ol -16 (Same l 16:33: as:Robaxin [place] ) Ondansetron No Notes: Aj peggy 7-16 (Same as: l 16:33: Zofran) [place] 00 MEDICATION WASTE Product Size: 4 mg Product Wasted: ___ mg Melatonin No Notes: Memori a 7-16 (Same as: l 16:33: Melatonin) [place] Saline No Notes: Memor ia Flush 0.9% -16 DO NOT l 16:33: USE. NO [place] CHARGE ANESTHESIA MODULE ONLY Lactated No 1,000 mL, Aj peggy Ringers 10-12 Rate: 125 l 1,000 mL 16:33: ml/hr, [place] Infuse over: 8 hr, Route: IV, Dosing Weight 72 kg, Total Volume: 1,000, Start date: 10/13/15 11:33:00 CDT, Duration: 30 day, Stop date: 11/12/15 11:32:00 CDT Oxycodone No Notes: Memori a Hydrochlori -16 (Same as: l de 1 MG/ML 16:33: 'Roxicodon H ermann Oral 00 e) Solution Bisacodyl No Notes: Memori a 7-16 (Same As: l 16:33: Dulcolax, [place] 00 Bisco-Lax) Oxycodone No Notes: Memori a Hydrochlori -16 (Same as: l de 5 MG 16:33: Roxicodone Herm adriana Oral Tablet ) Methocarbam No Notes: Aj peggy ol -16 (Same l 16:33: as:Robaxin [place] ) Ondansetron No Notes: Aj peggy 7-16 (Same as: l 16:33: Zofran) [place] MEDICATION WASTE Product Size: 4 mg Product Wasted: ___ mg Melatonin No Notes: Memori a 7-16 (Same as: l 16:33: Melatonin) [place] Saline No Notes: Memor ia Flush 0.9% -16 DO NOT l 16:33: USE. NO [place] CHARGE ANESTHESIA MODULE ONLY Lactated No 1,000 mL, Aj peggy Ringers -16 Rate: 125 l 1,000 mL 16:33: ml/hr, [place] Infuse over: 8 hr, Route: IV, Dosing Weight 72 kg, Total Volume: 1,000, Start date: 10/13/15 11:33:00 CDT, Duration: 30 day, Stop date: 11/12/15 11:32:00 CDT Oxycodone No Notes: Memori a Hydrochlori -16 (Same as: l de 1 MG/ML 16:33: 'Roxicodon H ermann Oral 00 e) Solution Bisacodyl No Notes: Memori a 7-16 (Same As: l 16:33: Dulcolax, [place] 00 Bisco-Lax) Oxycodone No Notes: Memori a Hydrochlori -16 (Same as: l de 5 MG 16:33: Roxicodone Herm adriana Oral Tablet ) Methocarbam No Notes: Aj pegyg ol 16 (Same l 16:33: as:Robaxin [place] ) Ondansetron No Notes: Aj peggy - (Same as: l 16:33: Zofran) [place] 00 MEDICATION WASTE Product Size: 4 mg Product Wasted: ___ mg Melatonin No Notes: Memori a -16 (Same as: l 16:33: Melatonin) [place] 00 Saline No Notes: Memor ia Flush 0.9% 10-12 DO NOT l 16:33: USE. NO CHARGE ANESTHESIA MODULE ONLY Lactated No 1,000 mL, Aj peggy Ringers 10-12 Rate: 125 l 1,000 mL 16:33: ml/hr, [place] 00 Infuse over: 8 hr, Route: IV, Dosing Weight 72 kg, Total Volume: 1,000, Start date: 10/13/15 11:33:00 CDT, Duration: 30 day, Stop date: 11/12/15 11:32:00 CDT Oxycodone No Notes: Memori a Hydrochlori -16 (Same as: l de 1 MG/ML 16:33: 'Roxicodon H ermann Oral 00 e) Solution Bisacodyl No Notes: Memori a 7-16 (Same As: l 16:33: Dulcolax, [place] 00 Bisco-Lax) Oxycodone No Notes: Memori a Hydrochlori -16 (Same as: l de 5 MG 16:33: Roxicodone Herm adriana Oral Tablet 00 ) Methocarbam No Notes: Aj peggy ol -16 (Same l 16:33: as:Robaxin [place] ) Ondansetron No Notes: Aj peggy -16 (Same as: l 16:33: Zofran) [place] 00 MEDICATION WASTE Product Size: 4 mg Product Wasted: ___ mg Melatonin No Notes: Memori a -16 (Same as: l 16:33: Melatonin) [place] 00 Saline No Notes: Memor ia Flush 0.9% 10-12 DO NOT l 16:33: USE. NO CHARGE ANESTHESIA MODULE ONLY Lactated No 1,000 mL, Aj peggy Ringers 10-12 Rate: 125 l 1,000 mL 16:33: ml/hr, Infuse over: 8 hr, Route: IV, Dosing Weight 72 kg, Total Volume: 1,000, Start date: 10/13/15 11:33:00 CDT, Duration: 30 day, Stop date: 11/12/15 11:32:00 CDT Oxycodone No Notes: Memori a Hydrochlori -16 (Same as: l de 1 MG/ML 16:33: 'Roxicodon H ermann Oral 00 e) Solution Bisacodyl No Notes: Memori a 7-16 (Same As: l 16:33: Dulcolax, [place] 00 Bisco-Lax) Oxycodone No Notes: Memori a Hydrochlori -16 (Same as: l de 5 MG 16:33: Roxicodone Herm adriana Oral Tablet ) Methocarbam No Notes: Aj peggy ol -16 (Same l 16:33: as:Robaxin [place] ) Ondansetron No Notes: Aj peggy 7-16 (Same as: l 16:33: Zofran) [place] 00 MEDICATION WASTE Product Size: 4 mg Product Wasted: ___ mg Melatonin No Notes: Memori a 7-16 (Same as: l 16:33: Melatonin) [place] 00 Saline No Notes: Memor ia Flush 0.9% 7-16 DO NOT l 16:33: USE. NO [place] 00 CHARGE ANESTHESIA MODULE ONLY Lactated No 1,000 mL, Aj peggy Ringers 16 Rate: 125 l 1,000 mL 16:33: ml/hr, [place] 00 Infuse over: 8 hr, Route: IV, Dosing Weight 72 kg, Total Volume: 1,000, Start date: 10/13/15 11:33:00 CDT, Duration: 30 day, Stop date: 11/12/15 11:32:00 CDT Oxycodone No Notes: Memori a Hydrochlori 7-16 (Same as: l de 1 MG/ML 16:33: 'Roxicodon H ermann Oral 00 e) Solution Bisacodyl No Notes: Memori a 7-16 (Same As: l 16:33: Dulcolax, [place] 00 Bisco-Lax) Oxycodone No Notes: Memori a Hydrochlori 7-16 (Same as: l de 5 MG 16:33: Roxicodone Herm adriana Oral Tablet ) Methocarbam No Notes: Aj peggy ol -16 (Same l 16:33: as:Robaxin [place] ) Ondansetron No Notes: Aj peggy 7-16 (Same as: l 16:33: Zofran) [place] 00 MEDICATION WASTE Product Size: 4 mg Product Wasted: ___ mg Melatonin No Notes: Memori a 7-16 (Same as: l 16:33: Melatonin) [place] Saline No Notes: Memor ia Flush 0.9% 7-16 DO NOT l 16:33: USE. NO [place] 00 CHARGE ANESTHESIA MODULE ONLY Lactated No 1,000 mL, Aj peggy Ringers 7-16 Rate: 125 l 1,000 mL 16:33: ml/hr, [place] 00 Infuse over: 8 hr, Route: IV, Dosing Weight 72 kg, Total Volume: 1,000, Start date: 10/13/15 11:33:00 CDT, Duration: 30 day, Stop date: 11/12/15 11:32:00 CDT Oxycodone No Notes: Memori a Hydrochlori -16 (Same as: l de 1 MG/ML 16:33: 'Roxicodon H ermann Oral 00 e) Solution Bisacodyl No Notes: Memori a 7-16 (Same As: l 16:33: Dulcolax, [place] 00 Bisco-Lax) Oxycodone No Notes: Memori a Hydrochlori -16 (Same as: l de 5 MG 16:33: Roxicodone Herm adriana Oral Tablet ) Methocarbam No Notes: Aj peggy ol 16 (Same l 16:33: as:Robaxin [place] ) Ondansetron No Notes: Aj peggy - (Same as: l 16:33: Zofran) [place] 00 MEDICATION WASTE Product Size: 4 mg Product Wasted: ___ mg Melatonin No Notes: Memori a -16 (Same as: l 16:33: Melatonin) [place] Saline No Notes: Memor ia Flush 0.9% 10-12 DO NOT l 16:33: USE. NO [place] 00 CHARGE ANESTHESIA MODULE ONLY Lactated No 1,000 mL, Aj peggy Ringers 10-12 Rate: 125 l 1,000 mL 16:33: ml/hr, [place] 00 Infuse over: 8 hr, Route: IV, Dosing Weight 72 kg, Total Volume: 1,000, Start date: 10/13/15 11:33:00 CDT, Duration: 30 day, Stop date: 11/12/15 11:32:00 CDT Oxycodone No Notes: Memori a Hydrochlori -16 (Same as: l de 1 MG/ML 16:33: 'Roxicodon H ermann Oral 00 e) Solution Bisacodyl No Notes: Memori a 7-16 (Same As: l 16:33: Dulcolax, [place] 00 Bisco-Lax) Oxycodone No Notes: Memori a Hydrochlori -16 (Same as: l de 5 MG 16:33: Roxicodone Herm adriana Oral Tablet ) Methocarbam No Notes: Aj peggy ol -16 (Same l 16:33: as:Robaxin [place] ) Ondansetron No Notes: Aj peggy -16 (Same as: l 16:33: Zofran) [place] 00 MEDICATION WASTE Product Size: 4 mg Product Wasted: ___ mg Melatonin No Notes: Memori a 7-16 (Same as: l 16:33: Melatonin) [place] 00 Saline No Notes: Memor ia Flush 0.9% 10-12 DO NOT l 16:33: USE. NO [place] 00 CHARGE ANESTHESIA MODULE ONLY Lactated No 1,000 mL, Aj peggy Ringers 10-12 Rate: 125 l 1,000 mL 16:33: ml/hr, Infuse over: 8 hr, Route: IV, Dosing Weight 72 kg, Total Volume: 1,000, Start date: 10/13/15 11:33:00 CDT, Duration: 30 day, Stop date: 11/12/15 11:32:00 CDT Oxycodone No Notes: Memori a Hydrochlori -16 (Same as: l de 1 MG/ML 16:33: 'Roxicodon H ermann Oral 00 e) Solution Bisacodyl No Notes: Memori a -16 (Same As: l 16:33: Dulcolax, [place] Bisco-Lax) Oxycodone No Notes: Memori a Hydrochlori -16 (Same as: l de 5 MG 16:33: Roxicodone Herm adriana Oral Tablet ) Methocarbam No Notes: Aj peggy ol -16 (Same l 16:33: as:Robaxin [place] ) Ondansetron No Notes: Aj peggy 7-16 (Same as: l 16:33: Zofran) [place] MEDICATION WASTE Product Size: 4 mg Product Wasted: ___ mg Melatonin No Notes: Memori a 7-16 (Same as: l 16:33: Melatonin) [place] Saline No Notes: Memor ia Flush 0.9% -16 DO NOT l 16:33: USE. NO Rodney 00 CHARGE ANESTHESIA MODULE ONLY Lactated No 1,000 mL, Aj peggy Ringers 16 Rate: 125 l 1,000 mL 16:33: ml/hr, Rodney 00 Infuse over: 8 hr, Route: IV, Dosing Weight 72 kg, Total Volume: 1,000, Start date: 10/13/15 11:33:00 CDT, Duration: 30 day, Stop date: 11/12/15 11:32:00 CDT Oxycodone No Notes: Memori a Hydrochlori 7-16 (Same as: l de 1 MG/ML 16:33: 'Roxicodon H ermann Oral 00 e) Solution Bisacodyl No Notes: Memori a 7-16 (Same As: l 16:33: Dulcolax, [place] 00 Bisco-Lax) Oxycodone No Notes: Memori a Hydrochlori 7-16 (Same as: l de 5 MG 16:33: Roxicodone Herm adriana Oral Tablet ) Methocarbam No Notes: Aj peggy ol -16 (Same l 16:33: as:Robaxin [place] ) Ondansetron No Notes: Aj peggy 7-16 (Same as: l 16:33: Zofran) [place] MEDICATION WASTE Product Size: 4 mg Product Wasted: ___ mg Melatonin No Notes: Memori a 7-16 (Same as: l 16:33: Melatonin) [place]ney Saline No Notes: Memor ia Flush 0.9% -16 DO NOT l 16:33: USE. NO Rodney 00 CHARGE ANESTHESIA MODULE ONLY Lactated No 1,000 mL, Aj peggy Ringers -16 Rate: 125 l 1,000 mL 16:33: ml/hr, [place] 00 Infuse over: 8 hr, Route: IV, Dosing Weight 72 kg, Total Volume: 1,000, Start date: 10/13/15 11:33:00 CDT, Duration: 30 day, Stop date: 11/12/15 11:32:00 CDT Oxycodone No Notes: Memori a Hydrochlori 7-16 (Same as: l de 1 MG/ML 16:33: 'Roxicodon H ermann Oral 00 e) Solution Bisacodyl No Notes: Memori a 7-16 (Same As: l 16:33: Dulcolax, [place] Bisco-Lax) Oxycodone No Notes: Memori a Hydrochlori 7-16 (Same as: l de 5 MG 16:33: Roxicodone Herm adriana Oral Tablet 00 ) Methocarbam No Notes: Aj peggy ol 7-16 (Same l 16:33: as:Robaxin [place] ) Ondansetron No Notes: Aj peggy 7-16 (Same as: l 16:33: Zofran) MEDICATION WASTE Product Size: 4 mg Product Wasted: ___ mg Clindamycin No Notes: Aj peggy 7-16 (Same As: l 16:00: Cleocin) Clindamycin No Notes: Aj peggy 7-16 (Same As: l 16:00: Cleocin) Clindamycin No Notes: Aj peggy 7-16 (Same As: l 16:00: Cleocin) Clindamycin No Notes: Aj peggy 7-16 (Same As: l 16:00: Cleocin) Clindamycin No Notes: Aj peggy 7-16 (Same As: l 16:00: Cleocin) Clindamycin No Notes: Aj peggy 7-16 (Same As: l 16:00: Cleocin) Clindamycin No Notes: Aj peggy 7-16 (Same As: l 16:00: Cleocin) Clindamycin No Notes: Aj peggy 7-16 (Same As: l 16:00: Cleocin) Clindamycin No Notes: Aj peggy 7-16 (Same As: l 16:00: Cleocin) Clindamycin No Notes: Aj peggy 7-16 (Same As: l 16:00: Cleocin) Clindamycin No Notes: Aj peggy 7-16 (Same As: l 16:00: Cleocin) Clindamycin No Notes: Aj peggy 7-16 (Same As: l 16:00: Cleocin) Clindamycin No Notes: Aj peggy 7-16 (Same As: l 16:00: Cleocin) Clindamycin No Notes: Aj peggy 7-16 (Same As: l 16:00: Cleocin) Clindamycin No Notes: Aj peggy 7-16 (Same As: l 16:00: Cleocin) Clindamycin No Notes: Aj peggy 7-16 (Same As: l 16:00: Cleocin) Clindamycin No Notes: Aj peggy 7-16 (Same As: l 16:00: Cleocin) Clindamycin No Notes: Aj peggy 7-16 (Same As: l 16:00: Cleocin) Clindamycin No Notes: Aj peggy 7-16 (Same As: l 16:00: Cleocin) Clindamycin No Notes: Aj peggy 7-16 (Same As: l 16:00: Cleocin) Clindamycin No Notes: Aj peggy 7-16 (Same As: l 16:00: Cleocin) Clindamycin No Notes: Aj peggy 7-16 (Same As: l 16:00: Cleocin) Clindamycin No Notes: Aj peggy 7-16 (Same As: l 16:00: Cleocin) Clindamycin No Notes: Aj peggy 7-16 (Same As: l 16:00: Cleocin) Clindamycin No Notes: Aj peggy 7-16 (Same As: l 16:00: Cleocin) Clindamycin No Notes: Aj peggy 7-16 (Same As: l 16:00: Cleocin) Clindamycin No Notes: Aj peggy 7-16 (Same As: l 16:00: Cleocin) Clindamycin No Notes: Aj peggy 7-16 (Same As: l 16:00: Cleocin) Clindamycin No Notes: Aj peggy 7-16 (Same As: l 16:00: Cleocin) Clindamycin No Notes: Aj peggy 7-16 (Same As: l 16:00: Cleocin) Clindamycin No Notes: Aj peggy 7-16 (Same As: l 16:00: Cleocin) Clindamycin No Notes: Aj peggy 7-16 (Same As: l 16:00: Cleocin) Clindamycin No Notes: Aj peggy 7-16 (Same As: l 16:00: Cleocin) Clindamycin No Notes: Aj peggy 7-16 (Same As: l 16:00: Cleocin) Clindamycin No Notes: Aj peggy 7-16 (Same As: l 16:00: Cleocin) Clindamycin No Notes: Aj peggy 7-16 (Same As: l 16:00: Cleocin) Clindamycin No Notes: Aj peggy 7-16 (Same As: l 16:00: Cleocin) Clindamycin No Notes: Aj peggy 7-16 (Same As: l 16:00: Cleocin) Clindamycin No Notes: Aj peggy 7-16 (Same As: l 16:00: Cleocin) Clindamycin No Notes: Aj peggy 7-16 (Same As: l 16:00: Cleocin) Clindamycin No Notes: Aj peggy 7-16 (Same As: l 16:00: Cleocin) Clindamycin No Notes: Aj peggy 7-16 (Same As: l 16:00: Cleocin) Clindamycin No Notes: Aj peggy 7-16 (Same As: l 16:00: Cleocin) [place] 00 Clindamycin No Notes: Aj peggy 7-16 (Same As: l 16:00: Cleocin) [place] 00 Clindamycin No Notes: Aj peggy 7-16 (Same As: l 16:00: Cleocin) Clindamycin No Notes: Aj peggy 7-16 (Same As: l 16:00: Cleocin) Ondansetron No Notes: Aj peggy 7-16 (Same as: l 15:37: Zofran) MEDICATION WASTE Product Size: 4 mg Product Wasted: ___ mg Hydromorpho No Notes: Aj peggy ne 7-16 Same as: l 15:37: Dilaudid Flumazenil No Notes: Memor ia 7-16 (Same as: l 15:37: Romazicon) Ondansetron No Notes: Aj peggy 7-16 (Same as: l 15:37: Zofran) MEDICATION WASTE Product Size: 4 mg Product Wasted: ___ mg Hydromorpho No Notes: Aj peggy ne 7-16 Same as: l 15:37: Dilaudid Flumazenil No Notes: Memor ia 7-16 (Same as: l 15:37: Romazicon) Hydralazine No Notes: Aj peggy 7-16 (Same as: l 15:37: Apresoline ) Push over 5 minutes Labetalol No 10 mg, 2 Aj peggy 7-16 mL, Route: l 15:37: IVP, Drug form: INJ, Q5Min, Dosing Weight 72, kg, PRN Elevated BP, Start date: 10/13/15 10:37:00 CDT, Duration: 5 doses or times, Stop date: Limited # of times Naloxone No Notes: Memoria 7-16 Same as l 15:37: Narcan Hydralazine No Notes: Aj peggy 7-16 (Same as: l 15:37: Apresoline [place] ) Push over 5 minutes Labetalol No 10 mg, 2 Aj peggy 7-16 mL, Route: l 15:37: IVP, Drug [place] 00 form: INJ, Q5Min, Dosing Weight 72, kg, PRN Elevated BP, Start date: 10/13/15 10:37:00 CDT, Duration: 5 doses or times, Stop date: Limited # of times Naloxone No Notes: Memoria 7-16 Same as l 15:37: Narcan [place] Ondansetron No Notes: Aj peggy 7-16 (Same as: l 15:37: Zofran) [place] 00 MEDICATION WASTE Product Size: 4 mg Product Wasted: ___ mg Hydromorpho No Notes: Aj peggy ne 7-16 Same as: l 15:37: Dilaudid [place] Flumazenil No Notes: Memor ia 7-16 (Same as: l 15:37: Romazicon) [place] Hydralazine No Notes: Aj peggy 7-16 (Same as: l 15:37: Apresoline [place] ) Push over 5 minutes Labetalol No 10 mg, 2 Aj peggy 7-16 mL, Route: l 15:37: IVP, Drug [place] 00 form: INJ, Q5Min, Dosing Weight 72, kg, PRN Elevated BP, Start date: 10/13/15 10:37:00 CDT, Duration: 5 doses or times, Stop date: Limited # of times Naloxone No Notes: Memoria 7-16 Same as l 15:37: Narcan [place] 00 Ondansetron No Notes: Aj peggy 7-16 (Same as: l 15:37: Zofran) [place] 00 MEDICATION WASTE Product Size: 4 mg Product Wasted: ___ mg Hydromorpho No Notes: Aj peggy ne 7-16 Same as: l 15:37: Dilaudid [place] Flumazenil No Notes: Memor ia 7-16 (Same as: l 15:37: Romazicon) [place] Hydralazine No Notes: Aj peggy 7-16 (Same as: l 15:37: Apresoline [place] ) Push over 5 minutes Labetalol No 10 mg, 2 Aj peggy 7-16 mL, Route: l 15:37: IVP, Drug [place] 00 form: INJ, Q5Min, Dosing Weight 72, kg, PRN Elevated BP, Start date: 10/13/15 10:37:00 CDT, Duration: 5 doses or times, Stop date: Limited # of times Naloxone No Notes: Memoria 7-16 Same as l 15:37: Narcan [place] 00 Ondansetron No Notes: Aj peggy 7-16 (Same as: l 15:37: Zofran) [place] 00 MEDICATION WASTE Product Size: 4 mg Product Wasted: ___ mg Hydromorpho No Notes: Aj peggy ne 7-16 Same as: l 15:37: Dilaudid [place] 00 Flumazenil No Notes: Memor ia 7-16 (Same as: l 15:37: Romazicon) [place] 00 Hydralazine No Notes: Aj peggy 7-16 (Same as: l 15:37: Apresoline [place] 00 ) Push over 5 minutes Labetalol No 10 mg, 2 Aj peggy 7-16 mL, Route: l 15:37: IVP, Drug [place] 00 form: INJ, Q5Min, Dosing Weight 72, kg, PRN Elevated BP, Start date: 10/13/15 10:37:00 CDT, Duration: 5 doses or times, Stop date: Limited # of times Naloxone No Notes: Memoria 7-16 Same as l 15:37: Narcan [place] Ondansetron No Notes: Aj peggy 7-16 (Same as: l 15:37: Zofran) [place] 00 MEDICATION WASTE Product Size: 4 mg Product Wasted: ___ mg Hydromorpho No Notes: Aj peggy ne 7-16 Same as: l 15:37: Dilaudid [place] Flumazenil No Notes: Memor ia 7-16 (Same as: l 15:37: Romazicon) [place] 00 Hydralazine No Notes: Aj peggy 7-16 (Same as: l 15:37: Apresoline ) Push over 5 minutes Labetalol No 10 mg, 2 Aj peggy 7-16 mL, Route: l 15:37: IVP, Drug [place] 00 form: INJ, Q5Min, Dosing Weight 72, kg, PRN Elevated BP, Start date: 10/13/15 10:37:00 CDT, Duration: 5 doses or times, Stop date: Limited # of times Naloxone No Notes: Memoria 7-16 Same as l 15:37: Narcan Ondansetron No Notes: Aj peggy 7-16 (Same as: l 15:37: Zofran) [place] 00 MEDICATION WASTE Product Size: 4 mg Product Wasted: ___ mg Hydromorpho No Notes: Aj peggy ne 7-16 Same as: l 15:37: Dilaudid Flumazenil No Notes: Memor ia 7-16 (Same as: l 15:37: Romazicon) [place] 00 Hydralazine No Notes: Aj peggy 7-16 (Same as: l 15:37: Apresoline ) Push over 5 minutes Labetalol No 10 mg, 2 Aj peggy 7-16 mL, Route: l 15:37: IVP, Drug form: INJ, Q5Min, Dosing Weight 72, kg, PRN Elevated BP, Start date: 10/13/15 10:37:00 CDT, Duration: 5 doses or times, Stop date: Limited # of times Naloxone No Notes: Memoria 7-16 Same as l 15:37: Narcan Ondansetron No Notes: Aj peggy 7-16 (Same as: l 15:37: Zofran) [place] 00 MEDICATION WASTE Product Size: 4 mg Product Wasted: ___ mg Hydromorpho No Notes: Aj peggy ne 7-16 Same as: l 15:37: Dilaudid [place] Flumazenil No Notes: Memor ia 7-16 (Same as: l 15:37: Romazicon) [place] 00 Hydralazine No Notes: Aj peggy 7-16 (Same as: l 15:37: Apresoline [place] 00 ) Push over 5 minutes Labetalol No 10 mg, 2 Aj peggy 7-16 mL, Route: l 15:37: IVP, Drug [place] 00 form: INJ, Q5Min, Dosing Weight 72, kg, PRN Elevated BP, Start date: 10/13/15 10:37:00 CDT, Duration: 5 doses or times, Stop date: Limited # of times Naloxone No Notes: Memoria 7-16 Same as l 15:37: Narcan Ondansetron No Notes: Aj peggy 7-16 (Same as: l 15:37: Zofran) [place] 00 MEDICATION WASTE Product Size: 4 mg Product Wasted: ___ mg Hydromorpho No Notes: Aj peggy ne 7-16 Same as: l 15:37: Dilaudid [place] 00 Flumazenil No Notes: Memor ia 7-16 (Same as: l 15:37: Romazicon) [place] Hydralazine No Notes: Aj peggy 7-16 (Same as: l 15:37: Apresoline [place] 00 ) Push over 5 minutes Labetalol No 10 mg, 2 Aj peggy 7-16 mL, Route: l 15:37: IVP, Drug [place] 00 form: INJ, Q5Min, Dosing Weight 72, kg, PRN Elevated BP, Start date: 10/13/15 10:37:00 CDT, Duration: 5 doses or times, Stop date: Limited # of times Naloxone No Notes: Memoria 7-16 Same as l 15:37: Narcan [place] 00 Ondansetron No Notes: Aj peggy 7-16 (Same as: l 15:37: Zofran) [place] 00 MEDICATION WASTE Product Size: 4 mg Product Wasted: ___ mg Hydromorpho No Notes: Aj peggy ne 7-16 Same as: l 15:37: Dilaudid [place] Flumazenil No Notes: Memor ia 7-16 (Same as: l 15:37: Romazicon) [place] Hydralazine No Notes: Aj peggy 7-16 (Same as: l 15:37: Apresoline [place] ) Push over 5 minutes Labetalol No 10 mg, 2 Aj peggy 7-16 mL, Route: l 15:37: IVP, Drug [place] 00 form: INJ, Q5Min, Dosing Weight 72, kg, PRN Elevated BP, Start date: 10/13/15 10:37:00 CDT, Duration: 5 doses or times, Stop date: Limited # of times Naloxone No Notes: Memoria 7-16 Same as l 15:37: Narcan Ondansetron No Notes: Aj peggy 7-16 (Same as: l 15:37: Zofran) [place] 00 MEDICATION WASTE Product Size: 4 mg Product Wasted: ___ mg Hydromorpho No Notes: Aj peggy ne 7-16 Same as: l 15:37: Dilaudid [place] Flumazenil No Notes: Memor ia 7-16 (Same as: l 15:37: Romazicon) [place] Hydralazine No Notes: Aj peggy 7-16 (Same as: l 15:37: Apresoline [place] ) Push over 5 minutes Labetalol No 10 mg, 2 Aj peggy 7-16 mL, Route: l 15:37: IVP, Drug [place] 00 form: INJ, Q5Min, Dosing Weight 72, kg, PRN Elevated BP, Start date: 10/13/15 10:37:00 CDT, Duration: 5 doses or times, Stop date: Limited # of times Naloxone No Notes: Memoria 7-16 Same as l 15:37: Narcan [place] 00 Ondansetron No Notes: Aj peggy 7-16 (Same as: l 15:37: Zofran) [place] MEDICATION WASTE Product Size: 4 mg Product Wasted: ___ mg Hydromorpho No Notes: Aj peggy ne 7-16 Same as: l 15:37: Dilaudid [place] Flumazenil No Notes: Memor ia 7-16 (Same as: l 15:37: Romazicon) [place] Hydralazine No Notes: Aj peggy 7-16 (Same as: l 15:37: Apresoline [place] ) Push over 5 minutes Labetalol No 10 mg, 2 Aj peggy 7-16 mL, Route: l 15:37: IVP, Drug [place] 00 form: INJ, Q5Min, Dosing Weight 72, kg, PRN Elevated BP, Start date: 10/13/15 10:37:00 CDT, Duration: 5 doses or times, Stop date: Limited # of times Naloxone No Notes: Memoria 7-16 Same as l 15:37: Narcan [place] 00 Ondansetron No Notes: Aj peggy 7-16 (Same as: l 15:37: Zofran) MEDICATION WASTE Product Size: 4 mg Product Wasted: ___ mg Hydromorpho No Notes: Aj peggy ne 7-16 Same as: l 15:37: Dilaudid [place] 00 Flumazenil No Notes: Memor ia 7-16 (Same as: l 15:37: Romazicon) [place] Hydralazine No Notes: Aj peggy 7-16 (Same as: l 15:37: Apresoline [place] ) Push over 5 minutes Labetalol No 10 mg, 2 Aj peggy 7-16 mL, Route: l 15:37: IVP, Drug [place] 00 form: INJ, Q5Min, Dosing Weight 72, kg, PRN Elevated BP, Start date: 10/13/15 10:37:00 CDT, Duration: 5 doses or times, Stop date: Limited # of times Naloxone No Notes: Memoria 7-16 Same as l 15:37: Narcan [place] 00 Ondansetron No Notes: Aj peggy 7-16 (Same as: l 15:37: Zofran) [place] 00 MEDICATION WASTE Product Size: 4 mg Product Wasted: ___ mg Hydromorpho No Notes: Aj peggy ne 7-16 Same as: l 15:37: Dilaudid [place] Flumazenil No Notes: Memor ia 7-16 (Same as: l 15:37: Romazicon) [place] Hydralazine No Notes: Aj peggy 7-16 (Same as: l 15:37: Apresoline [place] ) Push over 5 minutes Labetalol No 10 mg, 2 Aj peggy 7-16 mL, Route: l 15:37: IVP, Drug [place] 00 form: INJ, Q5Min, Dosing Weight 72, kg, PRN Elevated BP, Start date: 10/13/15 10:37:00 CDT, Duration: 5 doses or times, Stop date: Limited # of times Naloxone No Notes: Memoria 7-16 Same as l 15:37: Narcan [place] 00 Ondansetron No Notes: Aj peggy 7-16 (Same as: l 15:37: Zofran) [place] 00 MEDICATION WASTE Product Size: 4 mg Product Wasted: ___ mg Hydromorpho No Notes: Aj peggy ne 7-16 Same as: l 15:37: Dilaudid [place] 00 Flumazenil No Notes: Memor ia 7-16 (Same as: l 15:37: Romazicon) [place] Hydralazine No Notes: Aj peggy 7-16 (Same as: l 15:37: Apresoline [place] ) Push over 5 minutes Labetalol No 10 mg, 2 Aj peggy 7-16 mL, Route: l 15:37: IVP, Drug [place] 00 form: INJ, Q5Min, Dosing Weight 72, kg, PRN Elevated BP, Start date: 10/13/15 10:37:00 CDT, Duration: 5 doses or times, Stop date: Limited # of times Naloxone No Notes: Memoria 7-16 Same as l 15:37: Narcan [place] 00 Ondansetron No Notes: Aj peggy 7-16 (Same as: l 15:37: Zofran) [place] 00 MEDICATION WASTE Product Size: 4 mg Product Wasted: ___ mg Hydromorpho No Notes: Aj peggy ne 7-16 Same as: l 15:37: Dilaudid [place] 00 Flumazenil No Notes: Memor ia 7-16 (Same as: l 15:37: Romazicon) [place] Hydralazine No Notes: Aj peggy 7-16 (Same as: l 15:37: Apresoline [place] ) Push over 5 minutes Labetalol No 10 mg, 2 Aj peggy 7-16 mL, Route: l 15:37: IVP, Drug [place] 00 form: INJ, Q5Min, Dosing Weight 72, kg, PRN Elevated BP, Start date: 10/13/15 10:37:00 CDT, Duration: 5 doses or times, Stop date: Limited # of times Naloxone No Notes: Memoria 7-16 Same as l 15:37: Narcan [place] 00 Ondansetron No Notes: Aj peggy 7-16 (Same as: l 15:37: Zofran) [place] 00 MEDICATION WASTE Product Size: 4 mg Product Wasted: ___ mg Hydromorpho No Notes: Aj peggy ne 7-16 Same as: l 15:37: Dilaudid [place] 00 Flumazenil No Notes: Memor ia 7-16 (Same as: l 15:37: Romazicon) [place] Hydralazine No Notes: Aj peggy 7-16 (Same as: l 15:37: Apresoline [place] ) Push over 5 minutes Labetalol No 10 mg, 2 Aj peggy 7-16 mL, Route: l 15:37: IVP, Drug [place] 00 form: INJ, Q5Min, Dosing Weight 72, kg, PRN Elevated BP, Start date: 10/13/15 10:37:00 CDT, Duration: 5 doses or times, Stop date: Limited # of times Naloxone No Notes: Memoria 7-16 Same as l 15:37: Narcan [place] Ondansetron No Notes: Aj peggy 7-16 (Same as: l 15:37: Zofran) [place] 00 MEDICATION WASTE Product Size: 4 mg Product Wasted: ___ mg Hydromorpho No Notes: Aj peggy ne 7-16 Same as: l 15:37: Dilaudid [place] Flumazenil No Notes: Memor ia 7-16 (Same as: l 15:37: Romazicon) [place] Hydralazine No Notes: Aj peggy 7-16 (Same as: l 15:37: Apresoline [place] ) Push over 5 minutes Labetalol No 10 mg, 2 Aj peggy 7-16 mL, Route: l 15:37: IVP, Drug [place] 00 form: INJ, Q5Min, Dosing Weight 72, kg, PRN Elevated BP, Start date: 10/13/15 10:37:00 CDT, Duration: 5 doses or times, Stop date: Limited # of times Naloxone No Notes: Memoria 7-16 Same as l 15:37: Narcan [place] Ondansetron No Notes: Aj peggy 7-16 (Same as: l 15:37: Zofran) [place] 00 MEDICATION WASTE Product Size: 4 mg Product Wasted: ___ mg Hydromorpho No Notes: Aj peggy ne 7-16 Same as: l 15:37: Dilaudid [place] Flumazenil No Notes: Memor ia 7-16 (Same as: l 15:37: Romazicon) [place] Hydralazine No Notes: Aj peggy 7-16 (Same as: l 15:37: Apresoline [place] ) Push over 5 minutes Labetalol No 10 mg, 2 Aj peggy 7-16 mL, Route: l 15:37: IVP, Drug [place] 00 form: INJ, Q5Min, Dosing Weight 72, kg, PRN Elevated BP, Start date: 10/13/15 10:37:00 CDT, Duration: 5 doses or times, Stop date: Limited # of times Naloxone No Notes: Memoria 7-16 Same as l 15:37: Narcan [place] Ondansetron No Notes: Aj peggy 7-16 (Same as: l 15:37: Zofran) [place] 00 MEDICATION WASTE Product Size: 4 mg Product Wasted: ___ mg Hydromorpho No Notes: Aj pgegy ne 7-16 Same as: l 15:37: Dilaudid [place] Flumazenil No Notes: Memor ia 7-16 (Same as: l 15:37: Romazicon) [place] Hydralazine No Notes: Aj peggy 7-16 (Same as: l 15:37: Apresoline [place] ) Push over 5 minutes Labetalol No 10 mg, 2 Aj peggy 7-16 mL, Route: l 15:37: IVP, Drug [place] 00 form: INJ, Q5Min, Dosing Weight 72, kg, PRN Elevated BP, Start date: 10/13/15 10:37:00 CDT, Duration: 5 doses or times, Stop date: Limited # of times Naloxone No Notes: Memoria 7-16 Same as l 15:37: Narcan [place] Ondansetron No Notes: Aj peggy 7-16 (Same as: l 15:37: Zofran) [place] 00 MEDICATION WASTE Product Size: 4 mg Product Wasted: ___ mg Hydromorpho No Notes: Aj peggy ne 7-16 Same as: l 15:37: Dilaudid [place] Flumazenil No Notes: Memor ia 7-16 (Same as: l 15:37: Romazicon) [place] Hydralazine No Notes: Aj peggy 7-16 (Same as: l 15:37: Apresoline [place] ) Push over 5 minutes Labetalol No 10 mg, 2 Aj peggy 7-16 mL, Route: l 15:37: IVP, Drug [place] 00 form: INJ, Q5Min, Dosing Weight 72, kg, PRN Elevated BP, Start date: 10/13/15 10:37:00 CDT, Duration: 5 doses or times, Stop date: Limited # of times Naloxone No Notes: Memoria 7-16 Same as l 15:37: Narcan [place] Ondansetron No Notes: Aj peggy 7-16 (Same as: l 15:37: Zofran) [place] MEDICATION WASTE Product Size: 4 mg Product Wasted: ___ mg Hydromorpho No Notes: Aj peggy ne 7-16 Same as: l 15:37: Dilaudid [place] 00 Flumazenil No Notes: Memor ia 7-16 (Same as: l 15:37: Romazicon) [place] 00 Hydralazine No Notes: Aj peggy 7-16 (Same as: l 15:37: Apresoline ) Push over 5 minutes Labetalol No 10 mg, 2 Aj peggy 7-16 mL, Route: l 15:37: IVP, Drug form: INJ, Q5Min, Dosing Weight 72, kg, PRN Elevated BP, Start date: 10/13/15 10:37:00 CDT, Duration: 5 doses or times, Stop date: Limited # of times Naloxone No Notes: Memoria 7-16 Same as l 15:37: Narcan Ondansetron No Notes: Aj peggy 7-16 (Same as: l 15:37: Zofran) [place] 00 MEDICATION WASTE Product Size: 4 mg Product Wasted: ___ mg Hydromorpho No Notes: Aj peggy ne 7-16 Same as: l 15:37: Dilaudid [place] 00 Flumazenil No Notes: Memor ia 7-16 (Same as: l 15:37: Romazicon) [place] 00 Hydralazine No Notes: Aj peggy 7-16 (Same as: l 15:37: Apresoline [place] 00 ) Push over 5 minutes Labetalol No 10 mg, 2 Aj peggy 7-16 mL, Route: l 15:37: IVP, Drug [place] 00 form: INJ, Q5Min, Dosing Weight 72, kg, PRN Elevated BP, Start date: 10/13/15 10:37:00 CDT, Duration: 5 doses or times, Stop date: Limited # of times Naloxone No Notes: Memoria 7-16 Same as l 15:37: Narcan [place] Ondansetron No Notes: Aj peggy 7-16 (Same as: l 15:37: Zofran) [place] 00 MEDICATION WASTE Product Size: 4 mg Product Wasted: ___ mg Hydromorpho No Notes: Aj peggy ne 7-16 Same as: l 15:37: Dilaudid [place] Flumazenil No Notes: Memor ia 7-16 (Same as: l 15:37: Romazicon) [place] Hydralazine No Notes: Aj peggy 7-16 (Same as: l 15:37: Apresoline [place] ) Push over 5 minutes Labetalol No 10 mg, 2 Aj peggy 7-16 mL, Route: l 15:37: IVP, Drug [place] 00 form: INJ, Q5Min, Dosing Weight 72, kg, PRN Elevated BP, Start date: 10/13/15 10:37:00 CDT, Duration: 5 doses or times, Stop date: Limited # of times Naloxone No Notes: [facility]oria 7-16 Same as l 15:37: Narcan [place] Ondansetron No Notes: Aj peggy 7-16 (Same as: l 15:37: Zofran) [place] 00 MEDICATION WASTE Product Size: 4 mg Product Wasted: ___ mg Hydromorpho No Notes: Aj peggy ne 7-16 Same as: l 15:37: Dilaudid [place] Flumazenil No Notes: Memor ia 7-16 (Same as: l 15:37: Romazicon) [place] Hydralazine No Notes: Aj peggy 7-16 (Same as: l 15:37: Apresoline [place] 00 ) Push over 5 minutes Labetalol No 10 mg, 2 Aj peggy 7-16 mL, Route: l 15:37: IVP, Drug [place] 00 form: INJ, Q5Min, Dosing Weight 72, kg, PRN Elevated BP, Start date: 10/13/15 10:37:00 CDT, Duration: 5 doses or times, Stop date: Limited # of times Naloxone No Notes: Memoria 7-16 Same as l 15:37: Narcan Ondansetron No Notes: Aj peggy 7-16 (Same as: l 15:37: Zofran) MEDICATION WASTE Product Size: 4 mg Product Wasted: ___ mg Hydromorpho No Notes: Aj peggy ne 7-16 Same as: l 15:37: Dilaudid Flumazenil No Notes: Memor ia 7-16 (Same as: l 15:37: Romazicon) Hydralazine No Notes: Aj peggy 7-16 (Same as: l 15:37: Apresoline ) Push over 5 minutes Labetalol No 10 mg, 2 Aj peggy 7-16 mL, Route: l 15:37: IVP, Drug form: INJ, Q5Min, Dosing Weight 72, kg, PRN Elevated BP, Start date: 10/13/15 10:37:00 CDT, Duration: 5 doses or times, Stop date: Limited # of times Naloxone No Notes: Memoria 7-16 Same as l 15:37: Narcan Ondansetron No Notes: Aj peggy 7-16 (Same as: l 15:37: Zofran) MEDICATION WASTE Product Size: 4 mg Product Wasted: ___ mg Hydromorpho No Notes: Aj peggy ne 7-16 Same as: l 15:37: Dilaudid Flumazenil No Notes: Memor ia 7-16 (Same as: l 15:37: Romazicon) Hydralazine No Notes: Aj peggy 7-16 (Same as: l 15:37: Apresoline ) Push over 5 minutes Labetalol No 10 mg, 2 Aj peggy 7-16 mL, Route: l 15:37: IVP, Drug [place] 00 form: INJ, Q5Min, Dosing Weight 72, kg, PRN Elevated BP, Start date: 10/13/15 10:37:00 CDT, Duration: 5 doses or times, Stop date: Limited # of times Naloxone No Notes: [facility]oria 7-16 Same as l 15:37: Narcan [place] Ondansetron No Notes: Aj peggy 7-16 (Same as: l 15:37: Zofran) [place] 00 MEDICATION WASTE Product Size: 4 mg Product Wasted: ___ mg Hydromorpho No Notes: Aj peggy ne 7-16 Same as: l 15:37: Dilaudid [place] Flumazenil No Notes: Memor ia 7-16 (Same as: l 15:37: Romazicon) [place] 00 Hydralazine No Notes: Aj peggy 7-16 (Same as: l 15:37: Apresoline [place] ) Push over 5 minutes Labetalol No 10 mg, 2 Aj peggy 7-16 mL, Route: l 15:37: IVP, Drug [place] 00 form: INJ, Q5Min, Dosing Weight 72, kg, PRN Elevated BP, Start date: 10/13/15 10:37:00 CDT, Duration: 5 doses or times, Stop date: Limited # of times Naloxone No Notes: [facility]oria 7-16 Same as l 15:37: Narcan [place] 00 Ondansetron No Notes: Aj peggy 7-16 (Same as: l 15:37: Zofran) [place] 00 MEDICATION WASTE Product Size: 4 mg Product Wasted: ___ mg Hydromorpho No Notes: Aj peggy ne 7-16 Same as: l 15:37: Dilaudid [place] Flumazenil No Notes: Memor ia 7-16 (Same as: l 15:37: Romazicon) [place] Hydralazine No Notes: Aj peggy 7-16 (Same as: l 15:37: Apresoline [place] ) Push over 5 minutes Labetalol No 10 mg, 2 Aj peggy 7-16 mL, Route: l 15:37: IVP, Drug [place] 00 form: INJ, Q5Min, Dosing Weight 72, kg, PRN Elevated BP, Start date: 10/13/15 10:37:00 CDT, Duration: 5 doses or times, Stop date: Limited # of times Naloxone No Notes: Memoria 7-16 Same as l 15:37: Narcan Ondansetron No Notes: Aj peggy 7-16 (Same as: l 15:37: Zofran) [place] 00 MEDICATION WASTE Product Size: 4 mg Product Wasted: ___ mg Hydromorpho No Notes: Aj peggy ne 7-16 Same as: l 15:37: Dilaudid [place] 00 Flumazenil No Notes: Memor ia 7-16 (Same as: l 15:37: Romazicon) [place] 00 Hydralazine No Notes: Aj peggy 7-16 (Same as: l 15:37: Apresoline ) Push over 5 minutes Labetalol No 10 mg, 2 Aj peggy 7-16 mL, Route: l 15:37: IVP, Drug form: INJ, Q5Min, Dosing Weight 72, kg, PRN Elevated BP, Start date: 10/13/15 10:37:00 CDT, Duration: 5 doses or times, Stop date: Limited # of times Naloxone No Notes: Memoria 7-16 Same as l 15:37: Narcan [place] 00 Ondansetron No Notes: Aj peggy 7-16 (Same as: l 15:37: Zofran) [place] 00 MEDICATION WASTE Product Size: 4 mg Product Wasted: ___ mg Hydromorpho No Notes: Aj peggy ne 7-16 Same as: l 15:37: Dilaudid [place] 00 Flumazenil No Notes: Memor ia 7-16 (Same as: l 15:37: Romazicon) [place] Hydralazine No Notes: Aj peggy 7-16 (Same as: l 15:37: Apresoline [place] ) Push over 5 minutes Labetalol No 10 mg, 2 Aj peggy 7-16 mL, Route: l 15:37: IVP, Drug [place] 00 form: INJ, Q5Min, Dosing Weight 72, kg, PRN Elevated BP, Start date: 10/13/15 10:37:00 CDT, Duration: 5 doses or times, Stop date: Limited # of times Naloxone No Notes: Memoria 7-16 Same as l 15:37: Narcan [place] Ondansetron No Notes: Aj peggy 7-16 (Same as: l 15:37: Zofran) [place] 00 MEDICATION WASTE Product Size: 4 mg Product Wasted: ___ mg Hydromorpho No Notes: Aj peggy ne 7-16 Same as: l 15:37: Dilaudid [place] Flumazenil No Notes: Memor ia 7-16 (Same as: l 15:37: Romazicon) [place] Hydralazine No Notes: Aj peggy 7-16 (Same as: l 15:37: Apresoline [place] ) Push over 5 minutes Labetalol No 10 mg, 2 Aj peggy 7-16 mL, Route: l 15:37: IVP, Drug [place] 00 form: INJ, Q5Min, Dosing Weight 72, kg, PRN Elevated BP, Start date: 10/13/15 10:37:00 CDT, Duration: 5 doses or times, Stop date: Limited # of times Naloxone No Notes: Memoria 7-16 Same as l 15:37: Narcan [place] Ondansetron No Notes: Aj peggy 7-16 (Same as: l 15:37: Zofran) [place] 00 MEDICATION WASTE Product Size: 4 mg Product Wasted: ___ mg Hydromorpho No Notes: Aj peggy ne 7-16 Same as: l 15:37: Dilaudid [place] Flumazenil No Notes: Memor ia 7-16 (Same as: l 15:37: Romazicon) [place] Hydralazine No Notes: Aj peggy 7-16 (Same as: l 15:37: Apresoline [place] 00 ) Push over 5 minutes Labetalol No 10 mg, 2 Aj peggy 7-16 mL, Route: l 15:37: IVP, Drug [place] 00 form: INJ, Q5Min, Dosing Weight 72, kg, PRN Elevated BP, Start date: 10/13/15 10:37:00 CDT, Duration: 5 doses or times, Stop date: Limited # of times Naloxone No Notes: Memoria 7-16 Same as l 15:37: Narcan [place] 00 Ondansetron No Notes: Aj peggy 7-16 (Same as: l 15:37: Zofran) [place] 00 MEDICATION WASTE Product Size: 4 mg Product Wasted: ___ mg Ondansetron No Notes: Aj peggy 7-16 (Same as: l 15:37: Zofran) [place] 00 MEDICATION WASTE Product Size: 4 mg Product Wasted: ___ mg Hydromorpho No Notes: Aj peggy ne 7-16 Same as: l 15:37: Dilaudid [place] 00 Flumazenil No Notes: Memor ia 7-16 (Same as: l 15:37: Romazicon) [place] 00 Hydralazine No Notes: Aj peggy 7-16 (Same as: l 15:37: Apresoline [place] 00 ) Push over 5 minutes Labetalol No 10 mg, 2 Aj peggy 7-16 mL, Route: l 15:37: IVP, Drug [place] 00 form: INJ, Q5Min, Dosing Weight 72, kg, PRN Elevated BP, Start date: 10/13/15 10:37:00 CDT, Duration: 5 doses or times, Stop date: Limited # of times Naloxone No Notes: Memoria 7-16 Same as l 15:37: Narcan [place] Hydromorpho No Notes: Aj peggy ne 7-16 Same as: l 15:37: Dilaudid [place] 00 Ondansetron No Notes: Aj peggy 7-16 (Same as: l 15:37: Zofran) [place] 00 MEDICATION WASTE Product Size: 4 mg Product Wasted: ___ mg Hydromorpho No Notes: Aj peggy ne 7-16 Same as: l 15:37: Dilaudid [place] Flumazenil No Notes: Memor ia 7-16 (Same as: l 15:37: Romazicon) [place] Flumazenil No Notes: Memor ia 7-16 (Same as: l 15:37: Romazicon) [place] 00 Hydralazine No Notes: Aj peggy 7-16 (Same as: l 15:37: Apresoline [place] 00 ) Push over 5 minutes Labetalol No 10 mg, 2 Aj peggy 7-16 mL, Route: l 15:37: IVP, Drug [place] 00 form: INJ, Q5Min, Dosing Weight 72, kg, PRN Elevated BP, Start date: 10/13/15 10:37:00 CDT, Duration: 5 doses or times, Stop date: Limited # of times Naloxone No Notes: Memoria 7-16 Same as l 15:37: Narcan Hydralazine No Notes: Aj peggy 7-16 (Same as: l 15:37: Apresoline [place] 00 ) Push over 5 minutes Ondansetron No Notes: Aj peggy 7-16 (Same as: l 15:37: Zofran) [place] 00 MEDICATION WASTE Product Size: 4 mg Product Wasted: ___ mg Hydromorpho No Notes: Aj peggy ne 7-16 Same as: l 15:37: Dilaudid [place] 00 Flumazenil No Notes: Memor ia 7-16 (Same as: l 15:37: Romazicon) [place] 00 Hydralazine No Notes: Aj peggy 7-16 (Same as: l 15:37: Apresoline [place] 00 ) Push over 5 minutes Labetalol No 10 mg, 2 Aj peggy 7-16 mL, Route: l 15:37: IVP, Drug [place] 00 form: INJ, Q5Min, Dosing Weight 72, kg, PRN Elevated BP, Start date: 10/13/15 10:37:00 CDT, Duration: 5 doses or times, Stop date: Limited # of times Naloxone No Notes: Memoria 7-16 Same as l 15:37: Narcan Labetalol No 10 mg, 2 Aj peggy 7-16 mL, Route: l 15:37: IVP, Drug form: INJ, Q5Min, Dosing Weight 72, kg, PRN Elevated BP, Start date: 10/13/15 10:37:00 CDT, Duration: 5 doses or times, Stop date: Limited # of times Naloxone No Notes: Memoria 7-16 Same as l 15:37: Narcan Ondansetron No Notes: Aj peggy 7-16 (Same as: l 15:37: Zofran) MEDICATION WASTE Product Size: 4 mg Product Wasted: ___ mg Hydromorpho No Notes: Aj peggy ne 7-16 Same as: l 15:37: Dilaudid Flumazenil No Notes: Memor ia 7-16 (Same as: l 15:37: Romazicon) Hydralazine No Notes: Aj peggy 7-16 (Same as: l 15:37: Apresoline ) Push over 5 minutes Labetalol No 10 mg, 2 Aj peggy 7-16 mL, Route: l 15:37: IVP, Drug form: INJ, Q5Min, Dosing Weight 72, kg, PRN Elevated BP, Start date: 10/13/15 10:37:00 CDT, Duration: 5 doses or times, Stop date: Limited # of times Naloxone No Notes: Memoria 7-16 Same as l 15:37: Narcan Ondansetron No Notes: Aj peggy 7-16 (Same as: l 15:37: Zofran) MEDICATION WASTE Product Size: 4 mg Product Wasted: ___ mg Hydromorpho No Notes: Aj peggy ne 7-16 Same as: l 15:37: Dilaudid [place] 00 Flumazenil No Notes: Memor ia 7-16 (Same as: l 15:37: Romazicon) [place] 00 Hydralazine No Notes: Aj peggy 7-16 (Same as: l 15:37: Apresoline [place] 00 ) Push over 5 minutes Labetalol No 10 mg, 2 Aj peggy 7-16 mL, Route: l 15:37: IVP, Drug [place] 00 form: INJ, Q5Min, Dosing Weight 72, kg, PRN Elevated BP, Start date: 10/13/15 10:37:00 CDT, Duration: 5 doses or times, Stop date: Limited # of times Naloxone No Notes: Memoria 7-16 Same as l 15:37: Narcan Ondansetron No Notes: Aj peggy 7-16 (Same as: l 15:37: Zofran) [place] 00 MEDICATION WASTE Product Size: 4 mg Product Wasted: ___ mg Hydromorpho No Notes: Aj peggy ne 7-16 Same as: l 15:37: Dilaudid [place] 00 Flumazenil No Notes: Memor ia 7-16 (Same as: l 15:37: Romazicon) [place] 00 Hydralazine No Notes: Aj peggy 7-16 (Same as: l 15:37: Apresoline [place] 00 ) Push over 5 minutes Labetalol No 10 mg, 2 Aj peggy 7-16 mL, Route: l 15:37: IVP, Drug [place] 00 form: INJ, Q5Min, Dosing Weight 72, kg, PRN Elevated BP, Start date: 10/13/15 10:37:00 CDT, Duration: 5 doses or times, Stop date: Limited # of times Naloxone No Notes: Memoria 7-16 Same as l 15:37: Narcan [place] 00 Ondansetron No Notes: Aj peggy 7-16 (Same as: l 15:37: Zofran) [place] 00 MEDICATION WASTE Product Size: 4 mg Product Wasted: ___ mg Hydromorpho No Notes: Aj peggy ne 7-16 Same as: l 15:37: Dilaudid [place] Flumazenil No Notes: Memor ia 7-16 (Same as: l 15:37: Romazicon) [place] Hydralazine No Notes: Aj peggy 7-16 (Same as: l 15:37: Apresoline [place] 00 ) Push over 5 minutes Labetalol No 10 mg, 2 Aj peggy 7-16 mL, Route: l 15:37: IVP, Drug [place] 00 form: INJ, Q5Min, Dosing Weight 72, kg, PRN Elevated BP, Start date: 10/13/15 10:37:00 CDT, Duration: 5 doses or times, Stop date: Limited # of times Naloxone No Notes: Memoria 7-16 Same as l 15:37: Narcan Ondansetron No Notes: Aj peggy 7-16 (Same as: l 15:37: Zofran) [place] 00 MEDICATION WASTE Product Size: 4 mg Product Wasted: ___ mg Hydromorpho No Notes: Aj peggy ne 7-16 Same as: l 15:37: Dilaudid [place] Flumazenil No Notes: Memor ia 7-16 (Same as: l 15:37: Romazicon) [place] Hydralazine No Notes: Aj peggy 7-16 (Same as: l 15:37: Apresoline [place] 00 ) Push over 5 minutes Labetalol No 10 mg, 2 Aj peggy 7-16 mL, Route: l 15:37: IVP, Drug [place] 00 form: INJ, Q5Min, Dosing Weight 72, kg, PRN Elevated BP, Start date: 10/13/15 10:37:00 CDT, Duration: 5 doses or times, Stop date: Limited # of times Naloxone No Notes: Memoria 7-16 Same as l 15:37: Narcan [place] 00 Ondansetron No Notes: Aj peggy 7-16 (Same as: l 15:37: Zofran) [place] MEDICATION WASTE Product Size: 4 mg Product Wasted: ___ mg Hydromorpho No Notes: Aj peggy ne 7-16 Same as: l 15:37: Dilaudid [place] Flumazenil No Notes: Memor ia 7-16 (Same as: l 15:37: Romazicon) [place] 00 Hydralazine No Notes: Aj peggy 7-16 (Same as: l 15:37: Apresoline [place] ) Push over 5 minutes Labetalol No 10 mg, 2 Aj peggy 7-16 mL, Route: l 15:37: IVP, Drug [place] 00 form: INJ, Q5Min, Dosing Weight 72, kg, PRN Elevated BP, Start date: 10/13/15 10:37:00 CDT, Duration: 5 doses or times, Stop date: Limited # of times Naloxone No Notes: Memoria 7-16 Same as l 15:37: Narcan Ondansetron No Notes: Aj peggy 7-16 (Same as: l 15:37: Zofran) MEDICATION WASTE Product Size: 4 mg Product Wasted: ___ mg Hydromorpho No Notes: Aj peggy ne 7-16 Same as: l 15:37: Dilaudid [place] 00 Flumazenil No Notes: Memor ia 7-16 (Same as: l 15:37: Romazicon) Hydralazine No Notes: Aj peggy 7-16 (Same as: l 15:37: Apresoline [place] 00 ) Push over 5 minutes Labetalol No 10 mg, 2 Aj peggy 7-16 mL, Route: l 15:37: IVP, Drug [place] 00 form: INJ, Q5Min, Dosing Weight 72, kg, PRN Elevated BP, Start date: 10/13/15 10:37:00 CDT, Duration: 5 doses or times, Stop date: Limited # of times Naloxone No Notes: Memoria 7-16 Same as l 15:37: Narcan Ondansetron No Notes: Aj peggy 7-16 (Same as: l 15:37: Zofran) [place] 00 MEDICATION WASTE Product Size: 4 mg Product Wasted: ___ mg Hydromorpho No Notes: Aj peggy ne 7-16 Same as: l 15:37: Dilaudid [place] 00 Flumazenil No Notes: Memor ia 7-16 (Same as: l 15:37: Romazicon) [place] 00 Hydralazine No Notes: Aj peggy 7-16 (Same as: l 15:37: Apresoline [place] 00 ) Push over 5 minutes Labetalol No 10 mg, 2 Aj peggy 7-16 mL, Route: l 15:37: IVP, Drug [place] 00 form: INJ, Q5Min, Dosing Weight 72, kg, PRN Elevated BP, Start date: 10/13/15 10:37:00 CDT, Duration: 5 doses or times, Stop date: Limited # of times Naloxone No Notes: Memoria 7-16 Same as l 15:37: Narcan Ondansetron No Notes: Aj peggy 7-16 (Same as: l 15:37: Zofran) [place] 00 MEDICATION WASTE Product Size: 4 mg Product Wasted: ___ mg Hydromorpho No Notes: Aj peggy ne 7-16 Same as: l 15:37: Dilaudid [place] 00 Flumazenil No Notes: Memor ia 7-16 (Same as: l 15:37: Romazicon) [place] 00 Hydralazine No Notes: Aj peggy 7-16 (Same as: l 15:37: Apresoline [place] 00 ) Push over 5 minutes Labetalol No 10 mg, 2 Aj peggy 7-16 mL, Route: l 15:37: IVP, Drug form: INJ, Q5Min, Dosing Weight 72, kg, PRN Elevated BP, Start date: 10/13/15 10:37:00 CDT, Duration: 5 doses or times, Stop date: Limited # of times Naloxone No Notes: Memoria 7-16 Same as l 15:37: Narcan [place] 00 Isolyte S No Notes: Memori a PH-7.4 7-16 (Same as: l (Bolus) IV 09:09: Isolyte S [place] 00 PH 7.4) Ondansetron 2016-0 No Notes: Aj peggy 7-16 (Same as: l 09:09: Zofran) [place] 00 MEDICATION WASTE Product Size: 4 mg Product Wasted: ___ mg Isolyte S 2016-0 No Notes: Memori a PH-7.4 7-16 (Same as: l (Bolus) IV 09:09: Isolyte S [place] 00 PH 7.4) Ondansetron 2015-0 No Notes: Aj peggy 7-16 (Same as: l 09:09: Zofran) [place] 00 MEDICATION WASTE Product Size: 4 mg Product Wasted: ___ mg Isolyte S 2016-0 No Notes: Memori a PH-7.4 7-16 (Same as: l (Bolus) IV 09:09: Isolyte S [place] 00 PH 7.4) Ondansetron 2015-0 No Notes: Aj pgegy 7-16 (Same as: l 09:09: Zofran) [place] 00 MEDICATION WASTE Product Size: 4 mg Product Wasted: ___ mg Isolyte S 2016-0 No Notes: Memori a PH-7.4 7-16 (Same as: l (Bolus) IV 09:09: Isolyte S [place] 00 PH 7.4) Ondansetron 2015-0 No Notes: Aj peggy 7-16 (Same as: l 09:09: Zofran) [place] 00 MEDICATION WASTE Product Size: 4 mg Product Wasted: ___ mg Isolyte S 2016-0 No Notes: Memori a PH-7.4 7-16 (Same as: l (Bolus) IV 09:09: Isolyte S [place] 00 PH 7.4) Ondansetron 2016-0 No Notes: Aj peggy 7-16 (Same as: l 09:09: Zofran) [place] 00 MEDICATION WASTE Product Size: 4 mg Product Wasted: ___ mg Isolyte S 2016-0 No Notes: Memori a PH-7.4 7-16 (Same as: l (Bolus) IV 09:09: Isolyte S [place] 00 PH 7.4) Ondansetron 2016-0 No Notes: Aj peggy 7-16 (Same as: l 09:09: Zofran) [place] 00 MEDICATION WASTE Product Size: 4 mg Product Wasted: ___ mg Isolyte S 2016-0 No Notes: Memori a PH-7.4 7-16 (Same as: l (Bolus) IV 09:09: Isolyte S [place] 00 PH 7.4) Ondansetron 2016-0 No Notes: Aj peggy 7-16 (Same as: l 09:09: Zofran) [place] 00 MEDICATION WASTE Product Size: 4 mg Product Wasted: ___ mg Isolyte S 2016-0 No Notes: Memori a PH-7.4 7-16 (Same as: l (Bolus) IV 09:09: Isolyte S [place] 00 PH 7.4) Ondansetron 2016-0 No Notes: Aj peggy 7-16 (Same as: l 09:09: Zofran) [place] 00 MEDICATION WASTE Product Size: 4 mg Product Wasted: ___ mg Isolyte S 2016-0 No Notes: Memori a PH-7.4 7-16 (Same as: l (Bolus) IV 09:09: Isolyte S [place] 00 PH 7.4) Ondansetron 2015-0 No Notes: Aj peggy 7-16 (Same as: l 09:09: Zofran) [place] 00 MEDICATION WASTE Product Size: 4 mg Product Wasted: ___ mg Isolyte S 2016-0 No Notes: Memori a PH-7.4 7-16 (Same as: l (Bolus) IV 09:09: Isolyte S [place] 00 PH 7.4) Ondansetron 2016-0 No Notes: Ja peggy 7-16 (Same as: l 09:09: Zofran) [place] 00 MEDICATION WASTE Product Size: 4 mg Product Wasted: ___ mg Isolyte S 2016-0 No Notes: Memori a PH-7.4 7-16 (Same as: l (Bolus) IV 09:09: Isolyte S [place] 00 PH 7.4) Ondansetron 2016-0 No Notes: Aj peggy 7-16 (Same as: l 09:09: Zofran) [place] 00 MEDICATION WASTE Product Size: 4 mg Product Wasted: ___ mg Isolyte S 2016-0 No Notes: Memori a PH-7.4 7-16 (Same as: l (Bolus) IV 09:09: Isolyte S [place] 00 PH 7.4) Ondansetron 2016-0 No Notes: Aj peggy 7-16 (Same as: l 09:09: Zofran) [place] 00 MEDICATION WASTE Product Size: 4 mg Product Wasted: ___ mg Isolyte S 2016-0 No Notes: Memori a PH-7.4 7-16 (Same as: l (Bolus) IV 09:09: Isolyte S [place] 00 PH 7.4) Ondansetron 2016-0 No Notes: Aj peggy 7-16 (Same as: l 09:09: Zofran) [place] 00 MEDICATION WASTE Product Size: 4 mg Product Wasted: ___ mg Isolyte S 2016-0 No Notes: Memori a PH-7.4 7-16 (Same as: l (Bolus) IV 09:09: Isolyte S [place] 00 PH 7.4) Ondansetron 2015-0 No Notes: Aj peggy 7-16 (Same as: l 09:09: Zofran) [place] 00 MEDICATION WASTE Product Size: 4 mg Product Wasted: ___ mg Isolyte S 2016-0 No Notes: Memori a PH-7.4 7-16 (Same as: l (Bolus) IV 09:09: Isolyte S [place] 00 PH 7.4) Ondansetron 2016-0 No Notes: Aj peggy 7-16 (Same as: l 09:09: Zofran) [place] 00 MEDICATION WASTE Product Size: 4 mg Product Wasted: ___ mg Isolyte S 2016-0 No Notes: Memori a PH-7.4 7-16 (Same as: l (Bolus) IV 09:09: Isolyte S [place] 00 PH 7.4) Ondansetron 2016-0 No Notes: Aj peggy 7-16 (Same as: l 09:09: Zofran) [place] 00 MEDICATION WASTE Product Size: 4 mg Product Wasted: ___ mg Isolyte S 2016-0 No Notes: Memori a PH-7.4 7-16 (Same as: l (Bolus) IV 09:09: Isolyte S [place] 00 PH 7.4) Ondansetron 2016-0 No Notes: Aj peggy 7-16 (Same as: l 09:09: Zofran) [place] 00 MEDICATION WASTE Product Size: 4 mg Product Wasted: ___ mg Isolyte S 2016-0 No Notes: Memori a PH-7.4 7-16 (Same as: l (Bolus) IV 09:09: Isolyte S [place] 00 PH 7.4) Ondansetron 2016-0 No Notes: Aj peggy 7-16 (Same as: l 09:09: Zofran) [place] 00 MEDICATION WASTE Product Size: 4 mg Product Wasted: ___ mg Isolyte S 2016-0 No Notes: Memori a PH-7.4 7-16 (Same as: l (Bolus) IV 09:09: Isolyte S [place] 00 PH 7.4) Ondansetron 2015-0 No Notes: Aj peggy 7-16 (Same as: l 09:09: Zofran) [place] 00 MEDICATION WASTE Product Size: 4 mg Product Wasted: ___ mg Isolyte S 2016-0 No Notes: Memori a PH-7.4 7-16 (Same as: l (Bolus) IV 09:09: Isolyte S [place] 00 PH 7.4) Ondansetron 2016-0 No Notes: Aj peggy 7-16 (Same as: l 09:09: Zofran) [place] 00 MEDICATION WASTE Product Size: 4 mg Product Wasted: ___ mg Isolyte S 2016-0 No Notes: Memori a PH-7.4 7-16 (Same as: l (Bolus) IV 09:09: Isolyte S [place] 00 PH 7.4) Ondansetron 2016-0 No Notes: Aj peggy 7-16 (Same as: l 09:09: Zofran) [place] 00 MEDICATION WASTE Product Size: 4 mg Product Wasted: ___ mg Isolyte S 2016-0 No Notes: Memori a PH-7.4 7-16 (Same as: l (Bolus) IV 09:09: Isolyte S [place] 00 PH 7.4) Ondansetron 2016-0 No Notes: Aj peggy 7-16 (Same as: l 09:09: Zofran) [place] 00 MEDICATION WASTE Product Size: 4 mg Product Wasted: ___ mg Isolyte S 2016-0 No Notes: Memori a PH-7.4 7-16 (Same as: l (Bolus) IV 09:09: Isolyte S [place] 00 PH 7.4) Ondansetron 2016-0 No Notes: Aj peggy 7-16 (Same as: l 09:09: Zofran) [place] 00 MEDICATION WASTE Product Size: 4 mg Product Wasted: ___ mg Isolyte S 2016-0 No Notes: Memori a PH-7.4 7-16 (Same as: l (Bolus) IV 09:09: Isolyte S [place] 00 PH 7.4) Ondansetron 2016-0 No Notes: Aj peggy 7-16 (Same as: l 09:09: Zofran) [place] 00 MEDICATION WASTE Product Size: 4 mg Product Wasted: ___ mg Isolyte S 2016-0 No Notes: Memori a PH-7.4 7-16 (Same as: l (Bolus) IV 09:09: Isolyte S [place] 00 PH 7.4) Ondansetron 2016-0 No Notes: Aj peggy 7-16 (Same as: l 09:09: Zofran) [place] 00 MEDICATION WASTE Product Size: 4 mg Product Wasted: ___ mg Isolyte S 2016-0 No Notes: Memori a PH-7.4 7-16 (Same as: l (Bolus) IV 09:09: Isolyte S [place] 00 PH 7.4) Ondansetron 2016-0 No Notes: Aj peggy 7-16 (Same as: l 09:09: Zofran) [place] 00 MEDICATION WASTE Product Size: 4 mg Product Wasted: ___ mg Isolyte S 2016-0 No Notes: Memori a PH-7.4 7-16 (Same as: l (Bolus) IV 09:09: Isolyte S [place] 00 PH 7.4) Ondansetron 2016-0 No Notes: Aj peggy 7-16 (Same as: l 09:09: Zofran) [place] 00 MEDICATION WASTE Product Size: 4 mg Product Wasted: ___ mg Isolyte S 2016-0 No Notes: Memori a PH-7.4 7-16 (Same as: l (Bolus) IV 09:09: Isolyte S [place] 00 PH 7.4) Ondansetron 2016-0 No Notes: Aj peggy 7-16 (Same as: l 09:09: Zofran) [place] 00 MEDICATION WASTE Product Size: 4 mg Product Wasted: ___ mg Isolyte S 2016-0 No Notes: Memori a PH-7.4 7-16 (Same as: l (Bolus) IV 09:09: Isolyte S [place] 00 PH 7.4) Ondansetron 2016-0 No Notes: Aj peggy 7-16 (Same as: l 09:09: Zofran) [place] 00 MEDICATION WASTE Product Size: 4 mg Product Wasted: ___ mg Isolyte S 2016-0 No Notes: Memori a PH-7.4 7-16 (Same as: l (Bolus) IV 09:09: Isolyte S [place] 00 PH 7.4) Ondansetron 2016-0 No Notes: Aj peggy 7-16 (Same as: l 09:09: Zofran) [place] 00 MEDICATION WASTE Product Size: 4 mg Product Wasted: ___ mg Isolyte S 2016-0 No Notes: Memori a PH-7.4 7-16 (Same as: l (Bolus) IV 09:09: Isolyte S [place] 00 PH 7.4) Ondansetron 2016-0 No Notes: Aj peggy 7-16 (Same as: l 09:09: Zofran) [place] 00 MEDICATION WASTE Product Size: 4 mg Product Wasted: ___ mg Isolyte S 2016-0 No Notes: Memori a PH-7.4 7-16 (Same as: l (Bolus) IV 09:09: Isolyte S [place] 00 PH 7.4) Ondansetron 2016-0 No Notes: Aj peggy 7-16 (Same as: l 09:09: Zofran) [place] 00 MEDICATION WASTE Product Size: 4 mg Product Wasted: ___ mg Isolyte S 2016-0 No Notes: Memori a PH-7.4 7-16 (Same as: l (Bolus) IV 09:09: Isolyte S [place] 00 PH 7.4) Ondansetron 2016-0 No Notes: Aj peggy 7-16 (Same as: l 09:09: Zofran) [place] 00 MEDICATION WASTE Product Size: 4 mg Product Wasted: ___ mg Isolyte S 2016-0 No Notes: Memori a PH-7.4 7-16 (Same as: l (Bolus) IV 09:09: Isolyte S [place] 00 PH 7.4) Ondansetron 2016-0 No Notes: Aj peggy 7-16 (Same as: l 09:09: Zofran) [place] 00 MEDICATION WASTE Product Size: 4 mg Product Wasted: ___ mg Isolyte S 2016-0 No Notes: Memori a PH-7.4 7-16 (Same as: l (Bolus) IV 09:09: Isolyte S [place] 00 PH 7.4) Ondansetron 2016-0 No Notes: Aj peggy 7-16 (Same as: l 09:09: Zofran) [place] 00 MEDICATION WASTE Product Size: 4 mg Product Wasted: ___ mg Isolyte S 2016-0 No Notes: Memori a PH-7.4 7-16 (Same as: l (Bolus) IV 09:09: Isolyte S [place] 00 PH 7.4) Ondansetron 2016-0 No Notes: Aj peggy 7-16 (Same as: l 09:09: Zofran) [place] 00 MEDICATION WASTE Product Size: 4 mg Product Wasted: ___ mg Isolyte S 2016-0 No Notes: Memori a PH-7.4 7-16 (Same as: l (Bolus) IV 09:09: Isolyte S [place] 00 PH 7.4) Isolyte S 2016-0 No Notes: Memori a PH-7.4 7-16 (Same as: l (Bolus) IV 09:09: Isolyte S [place] 00 PH 7.4) Ondansetron 2015-0 No Notes: Aj peggy 7-16 (Same as: l 09:09: Zofran) [place] 00 MEDICATION WASTE Product Size: 4 mg Product Wasted: ___ mg Ondansetron 2016-0 No Notes: Aj peggy 7-16 (Same as: l 09:09: Zofran) [place] 00 MEDICATION WASTE Product Size: 4 mg Product Wasted: ___ mg Isolyte S 2016-0 No Notes: Memori a PH-7.4 7-16 (Same as: l (Bolus) IV 09:09: Isolyte S [place] 00 PH 7.4) Ondansetron 2015-0 No Notes: Aj peggy 7-16 (Same as: l 09:09: Zofran) [place] 00 MEDICATION WASTE Product Size: 4 mg Product Wasted: ___ mg Isolyte S 2016-0 No Notes: Memori a PH-7.4 7-16 (Same as: l (Bolus) IV 09:09: Isolyte S [place] 00 PH 7.4) Ondansetron 2015-0 No Notes: Aj peggy 7-16 (Same as: l 09:09: Zofran) [place] 00 MEDICATION WASTE Product Size: 4 mg Product Wasted: ___ mg Isolyte S 2016-0 No Notes: Memori a PH-7.4 7-16 (Same as: l (Bolus) IV 09:09: Isolyte S [place] 00 PH 7.4) Ondansetron 2015-0 No Notes: Aj peggy 7-16 (Same as: l 09:09: Zofran) [place] 00 MEDICATION WASTE Product Size: 4 mg Product Wasted: ___ mg Isolyte S 2016-0 No Notes: Memori a PH-7.4 7-16 (Same as: l (Bolus) IV 09:09: Isolyte S [place] 00 PH 7.4) Ondansetron 2016-0 No Notes: Aj peggy 7-16 (Same as: l 09:09: Zofran) [place] 00 MEDICATION WASTE Product Size: 4 mg Product Wasted: ___ mg Isolyte S 2016-0 No Notes: Memori a PH-7.4 7-16 (Same as: l (Bolus) IV 09:09: Isolyte S [place] 00 PH 7.4) Ondansetron 2016-0 No Notes: Aj peggy 7-16 (Same as: l 09:09: Zofran) [place] 00 MEDICATION WASTE Product Size: 4 mg Product Wasted: ___ mg Isolyte S 2016-0 No Notes: Memori a PH-7.4 7-16 (Same as: l (Bolus) IV 09:09: Isolyte S [place] 00 PH 7.4) Ondansetron 2015-0 No Notes: Aj peggy 7-16 (Same as: l 09:09: Zofran) [place] 00 MEDICATION WASTE Product Size: 4 mg Product Wasted: ___ mg Isolyte S 2016-0 No Notes: Memori a PH-7.4 7-16 (Same as: l (Bolus) IV 09:09: Isolyte S [place] 00 PH 7.4) Ondansetron 2016-0 No Notes: Aj peggy 7-16 (Same as: l 09:09: Zofran) [place] 00 MEDICATION WASTE Product Size: 4 mg Product Wasted: ___ mg Isolyte S 2016-0 No Notes: Memori a PH-7.4 7-16 (Same as: l (Bolus) IV 09:09: Isolyte S [place] 00 PH 7.4) Ondansetron 2015-0 No Notes: Aj peggy 7-16 (Same as: l 09:09: Zofran) [place] 00 MEDICATION WASTE Product Size: 4 mg Product Wasted: ___ mg Acetaminoph 2016-0 No Notes: Aj peggy en 325 MG / 10-12 (Same as: l Hydrocodone 06:32: [place] Ly nn Bitartrate 00 325/5) Do 5 MG Oral not exceed Tablet 4gm/day of acetaminop hen. Acetaminoph No Notes: Aj peggy en 325 MG / 16 (Same as: l Hydrocodone 06:32: [place] Bitartrate 00 325/5) Do 5 MG Oral not exceed Tablet 4gm/day of acetaminop hen. Acetaminoph No Notes: Aj peggy en 325 MG / 10-12 (Same as: l Hydrocodone 06:32: [place] [facility] Bitartrate 00 325/5) Do 5 MG Oral not exceed Tablet 4gm/day of acetaminop hen. Acetaminoph No Notes: Aj peggy en 325 MG / 10-12 (Same as: l Hydrocodone 06:32: [place] [facility] Bitartrate 00 325/5) Do 5 MG Oral not exceed Tablet 4gm/day of acetaminop hen. Acetaminoph No Notes: Aj peggy en 325 MG / 10-12 (Same as: l Hydrocodone 06:32: [place] [facility] Bitartrate 00 325/5) Do 5 MG Oral not exceed Tablet 4gm/day of acetaminop hen. Acetaminoph No Notes: Aj peggy en 325 MG / 10-12 (Same as: l Hydrocodone 06:32: [place] [facility] Bitartrate 00 325/5) Do 5 MG Oral not exceed Tablet 4gm/day of acetaminop hen. Acetaminoph No Notes: Aj peggy en 325 MG / 16 (Same as: l Hydrocodone 06:32: [place] [facility] Bitartrate 00 325/5) Do 5 MG Oral not exceed Tablet 4gm/day of acetaminop hen. Acetaminoph No Notes: Aj peggy en 325 MG / 16 (Same as: l Hydrocodone 06:32: [place] [facility] Bitartrate 00 325/5) Do 5 MG Oral not exceed Tablet 4gm/day of acetaminop hen. Acetaminoph No Notes: Aj peggy en 325 MG / 7-16 (Same as: l Hydrocodone 06:32: [place] [facility] Bitartrate 00 325/5) Do 5 MG Oral not exceed Tablet 4gm/day of acetaminop hen. Acetaminoph No Notes: Aj peggy en 325 MG / 10-12 (Same as: l Hydrocodone 06:32: [place] [facility] Bitartrate 00 325/5) Do 5 MG Oral not exceed Tablet 4gm/day of acetaminop hen. Acetaminoph No Notes: Aj peggy en 325 MG / 10-12 (Same as: l Hydrocodone 06:32: [place] [facility] Bitartrate 00 325/5) Do 5 MG Oral not exceed Tablet 4gm/day of acetaminop hen. Acetaminoph No Notes: Aj peggy en 325 MG / 10-12 (Same as: l Hydrocodone 06:32: [place] [facility] Bitartrate 00 325/5) Do 5 MG Oral not exceed Tablet 4gm/day of acetaminop hen. Acetaminoph No Notes: Aj peggy en 325 MG / 10-12 (Same as: l Hydrocodone 06:32: [place] [facility] Bitartrate 00 325/5) Do 5 MG Oral not exceed Tablet 4gm/day of acetaminop hen. Acetaminoph No Notes: Aj peggy en 325 MG / 10-12 (Same as: l Hydrocodone 06:32: [place] [facility] Bitartrate 00 325/5) Do 5 MG Oral not exceed Tablet 4gm/day of acetaminop hen. Acetaminoph No Notes: Aj peggy en 325 MG / 10-12 (Same as: l Hydrocodone 06:32: [place] [facility] Bitartrate 00 325/5) Do 5 MG Oral not exceed Tablet 4gm/day of acetaminop hen. Acetaminoph No Notes: Aj peggy en 325 MG / 16 (Same as: l Hydrocodone 06:32: [place] [facility] Bitartrate 00 325/5) Do 5 MG Oral not exceed Tablet 4gm/day of acetaminop hen. Acetaminoph No Notes: Aj peggy en 325 MG / 16 (Same as: l Hydrocodone 06:32: [place] [facility] Bitartrate 00 325/5) Do 5 MG Oral not exceed Tablet 4gm/day of acetaminop hen. Acetaminoph No Notes: Aj peggy en 325 MG / 716 (Same as: l Hydrocodone 06:32: [place] [facility] Bitartrate 00 325/5) Do 5 MG Oral not exceed Tablet 4gm/day of acetaminop hen. Acetaminoph No Notes: Ja peggy en 325 MG / 16 (Same as: l Hydrocodone 06:32: [place] [facility] Bitartrate 00 325/5) Do 5 MG Oral not exceed Tablet 4gm/day of acetaminop hen. Acetaminoph No Notes: Aj peggy en 325 MG / 16 (Same as: l Hydrocodone 06:32: [place] [facility] Bitartrate 00 325/5) Do 5 MG Oral not exceed Tablet 4gm/day of acetaminop hen. Acetaminoph No Notes: Aj peggy en 325 MG / 10-12 (Same as: l Hydrocodone 06:32: [place] [facility] Bitartrate 00 325/5) Do 5 MG Oral not exceed Tablet 4gm/day of acetaminop hen. Acetaminoph No Notes: Aj peggy en 325 MG / 16 (Same as: l Hydrocodone 06:32: [place] [facility] Bitartrate 00 325/5) Do 5 MG Oral not exceed Tablet 4gm/day of acetaminop hen. Acetaminoph No Notes: Aj peggy en 325 MG / 16 (Same as: l Hydrocodone 06:32: [place] [facility] Bitartrate 00 325/5) Do 5 MG Oral not exceed Tablet 4gm/day of acetaminop hen. Acetaminoph No Notes: Aj peggy en 325 MG / 716 (Same as: l Hydrocodone 06:32: [place] [facility] Bitartrate 00 325/5) Do 5 MG Oral not exceed Tablet 4gm/day of acetaminop hen. Acetaminoph No Notes: Aj peggy en 325 MG / 716 (Same as: l Hydrocodone 06:32: [place] [facility] Bitartrate 00 325/5) Do 5 MG Oral not exceed Tablet 4gm/day of acetaminop hen. Acetaminoph No Notes: Aj peggy en 325 MG / 16 (Same as: l Hydrocodone 06:32: [place] [facility] Bitartrate 00 325/5) Do 5 MG Oral not exceed Tablet 4gm/day of acetaminop hen. Acetaminoph No Notes: Aj peggy en 325 MG / 10-12 (Same as: l Hydrocodone 06:32: [place] [facility] Bitartrate 00 325/5) Do 5 MG Oral not exceed Tablet 4gm/day of acetaminop hen. Acetaminoph No Notes: Aj peggy en 325 MG / 10-12 (Same as: l Hydrocodone 06:32: [place] [facility] Bitartrate 00 325/5) Do 5 MG Oral not exceed Tablet 4gm/day of acetaminop hen. Acetaminoph No Notes: Aj peggy en 325 MG / 10-12 (Same as: l Hydrocodone 06:32: [place] [facility] Bitartrate 00 325/5) Do 5 MG Oral not exceed Tablet 4gm/day of acetaminop hen. Acetaminoph No Notes: Aj peggy en 325 MG / 10-12 (Same as: l Hydrocodone 06:32: [place] [facility] Bitartrate 00 325/5) Do 5 MG Oral not exceed Tablet 4gm/day of acetaminop hen. Acetaminoph No Notes: Aj peggy en 325 MG / 10-12 (Same as: l Hydrocodone 06:32: [place] [facility] Bitartrate 00 325/5) Do 5 MG Oral not exceed Tablet 4gm/day of acetaminop hen. Acetaminoph No Notes: Aj peggy en 325 MG / 16 (Same as: l Hydrocodone 06:32: [place] [facility] Bitartrate 00 325/5) Do 5 MG Oral not exceed Tablet 4gm/day of acetaminop hen. Acetaminoph No Notes: Aj peggy en 325 MG / 16 (Same as: l Hydrocodone 06:32: [place] [facility] Bitartrate 00 325/5) Do 5 MG Oral not exceed Tablet 4gm/day of acetaminop hen. Acetaminoph No Notes: Aj peggy en 325 MG / 16 (Same as: l Hydrocodone 06:32: [place] [facility] Bitartrate 00 325/5) Do 5 MG Oral not exceed Tablet 4gm/day of acetaminop hen. Acetaminoph No Notes: Aj peggy en 325 MG / 16 (Same as: l Hydrocodone 06:32: [place] [facility] Bitartrate 00 325/5) Do 5 MG Oral not exceed Tablet 4gm/day of acetaminop hen. Acetaminoph No Notes: Aj peggy en 325 MG / 16 (Same as: l Hydrocodone 06:32: [place] [facility] Bitartrate 00 325/5) Do 5 MG Oral not exceed Tablet 4gm/day of acetaminop hen. Acetaminoph No Notes: Aj peggy en 325 MG / 10-12 (Same as: l Hydrocodone 06:32: [place] [facility] Bitartrate 00 325/5) Do 5 MG Oral not exceed Tablet 4gm/day of acetaminop hen. Acetaminoph No Notes: Aj peggy en 325 MG / 16 (Same as: l Hydrocodone 06:32: [place] [facility] Bitartrate 00 325/5) Do 5 MG Oral not exceed Tablet 4gm/day of acetaminop hen. Acetaminoph No Notes: Aj peggy en 325 MG / 16 (Same as: l Hydrocodone 06:32: [place] [facility] Bitartrate 00 325/5) Do 5 MG Oral not exceed Tablet 4gm/day of acetaminop hen. Acetaminoph No Notes: Aj peggy en 325 MG / 16 (Same as: l Hydrocodone 06:32: [place] [facility] Bitartrate 00 325/5) Do 5 MG Oral not exceed Tablet 4gm/day of acetaminop hen. Acetaminoph No Notes: Aj peggy en 325 MG / 16 (Same as: l Hydrocodone 06:32: [place] [facility] Bitartrate 00 325/5) Do 5 MG Oral not exceed Tablet 4gm/day of acetaminop hen. Acetaminoph No Notes: Aj peggy en 325 MG / 16 (Same as: l Hydrocodone 06:32: [place] [facility] Bitartrate 00 325/5) Do 5 MG Oral not exceed Tablet 4gm/day of acetaminop hen. Acetaminoph No Notes: Aj peggy en 325 MG / 16 (Same as: l Hydrocodone 06:32: [place] [facility] Bitartrate 00 325/5) Do 5 MG Oral not exceed Tablet 4gm/day of acetaminop hen. Acetaminoph No Notes: Aj peggy en 325 MG / 10-12 (Same as: l Hydrocodone 06:32: [place] [facility] Bitartrate 00 325/5) Do 5 MG Oral not exceed Tablet 4gm/day of acetaminop hen. Acetaminoph No Notes: Aj peggy en 325 MG / 10-12 (Same as: l Hydrocodone 06:32: [place] [facility] Bitartrate 00 325/5) Do 5 MG Oral not exceed Tablet 4gm/day of acetaminop hen. Acetaminoph No Notes: Aj peggy en 325 MG / 10-12 (Same as: l Hydrocodone 06:32: [place] [facility] Bitartrate 00 325/5) Do 5 MG Oral not exceed Tablet 4gm/day of acetaminop hen. Acetaminoph No Notes: Aj peggy en 325 MG / 10-12 (Same as: l Hydrocodone 04:10: [place] [facility] Bitartrate 00 325/5) Do 5 MG Oral not exceed Tablet 4gm/day of acetaminop hen. Acetaminoph No Notes: Aj peggy en 325 MG / 16 (Same as: l Hydrocodone 04:10: [place] [facility] Bitartrate 00 325/5) Do 5 MG Oral not exceed Tablet 4gm/day of acetaminop hen. Acetaminoph No Notes: Aj peggy en 325 MG / 16 (Same as: l Hydrocodone 04:10: [place] [facility] Bitartrate 00 325/5) Do 5 MG Oral not exceed Tablet 4gm/day of acetaminop hen. Acetaminoph No Notes: Aj peggy en 325 MG / 10-12 (Same as: l Hydrocodone 04:10: [place] [facility] Bitartrate 00 325/5) Do 5 MG Oral not exceed Tablet 4gm/day of acetaminop hen. Acetaminoph No Notes: Aj peggy en 325 MG / 10-12 (Same as: l Hydrocodone 04:10: [place] [facility] Bitartrate 00 325/5) Do 5 MG Oral not exceed Tablet 4gm/day of acetaminop hen. Acetaminoph No Notes: Aj peggy en 325 MG / 10-12 (Same as: l Hydrocodone 04:10: [place] [facility] Bitartrate 00 325/5) Do 5 MG Oral not exceed Tablet 4gm/day of acetaminop hen. Acetaminoph No Notes: Aj peggy en 325 MG / 10-12 (Same as: l Hydrocodone 04:10: [place] [facility] Bitartrate 00 325/5) Do 5 MG Oral not exceed Tablet 4gm/day of acetaminop hen. Acetaminoph No Notes: Aj peggy en 325 MG / 10-12 (Same as: l Hydrocodone 04:10: [place] [facility] Bitartrate 00 325/5) Do 5 MG Oral not exceed Tablet 4gm/day of acetaminop hen. Acetaminoph No Notes: Aj peggy en 325 MG / 10-12 (Same as: l Hydrocodone 04:10: [place] [facility] Bitartrate 00 325/5) Do 5 MG Oral not exceed Tablet 4gm/day of acetaminop hen. Acetaminoph No Notes: Aj peggy en 325 MG / 10-12 (Same as: l Hydrocodone 04:10: [place] [facility] Bitartrate 00 325/5) Do 5 MG Oral not exceed Tablet 4gm/day of acetaminop hen. Acetaminoph No Notes: Aj peggy en 325 MG / 16 (Same as: l Hydrocodone 04:10: [place] [facility] Bitartrate 00 325/5) Do 5 MG Oral not exceed Tablet 4gm/day of acetaminop hen. Acetaminoph No Notes: Aj peggy en 325 MG / 10-12 (Same as: l Hydrocodone 04:10: [place] [facility] Bitartrate 00 325/5) Do 5 MG Oral not exceed Tablet 4gm/day of acetaminop hen. Acetaminoph No Notes: Aj peggy en 325 MG / 16 (Same as: l Hydrocodone 04:10: [place] [facility] Bitartrate 00 325/5) Do 5 MG Oral not exceed Tablet 4gm/day of acetaminop hen. Acetaminoph No Notes: Aj peggy en 325 MG / 16 (Same as: l Hydrocodone 04:10: [place] [facility] Bitartrate 00 325/5) Do 5 MG Oral not exceed Tablet 4gm/day of acetaminop hen. Acetaminoph No Notes: Aj peggy en 325 MG / 16 (Same as: l Hydrocodone 04:10: [place] [facility] Bitartrate 00 325/5) Do 5 MG Oral not exceed Tablet 4gm/day of acetaminop hen. Acetaminoph No Notes: Aj peggy en 325 MG / 10-12 (Same as: l Hydrocodone 04:10: [place] [facility] Bitartrate 00 325/5) Do 5 MG Oral not exceed Tablet 4gm/day of acetaminop hen. Acetaminoph No Notes: Aj peggy en 325 MG / 16 (Same as: l Hydrocodone 04:10: [place] [facility] Bitartrate 00 325/5) Do 5 MG Oral not exceed Tablet 4gm/day of acetaminop hen. Acetaminoph No Notes: Aj peggy en 325 MG / 16 (Same as: l Hydrocodone 04:10: [place] [facility] Bitartrate 00 325/5) Do 5 MG Oral not exceed Tablet 4gm/day of acetaminop hen. Acetaminoph No Notes: Aj peggy en 325 MG / 716 (Same as: l Hydrocodone 04:10: [place] [facility] Bitartrate 00 325/5) Do 5 MG Oral not exceed Tablet 4gm/day of acetaminop hen. Acetaminoph No Notes: Aj peggy en 325 MG / 716 (Same as: l Hydrocodone 04:10: [place] [facility] Bitartrate 00 325/5) Do 5 MG Oral not exceed Tablet 4gm/day of acetaminop hen. Acetaminoph No Notes: Aj peggy en 325 MG / 16 (Same as: l Hydrocodone 04:10: [place] [facility] Bitartrate 00 325/5) Do 5 MG Oral not exceed Tablet 4gm/day of acetaminop hen. Acetaminoph No Notes: Aj peggy en 325 MG / 16 (Same as: l Hydrocodone 04:10: [place] [facility] Bitartrate 00 325/5) Do 5 MG Oral not exceed Tablet 4gm/day of acetaminop hen. Acetaminoph No Notes: Aj peggy en 325 MG / 16 (Same as: l Hydrocodone 04:10: [place] [facility] Bitartrate 00 325/5) Do 5 MG Oral not exceed Tablet 4gm/day of acetaminop hen. Acetaminoph No Notes: Aj peggy en 325 MG / 10-12 (Same as: l Hydrocodone 04:10: [place] [facility] Bitartrate 00 325/5) Do 5 MG Oral not exceed Tablet 4gm/day of acetaminop hen. Acetaminoph No Notes: Aj peggy en 325 MG / 16 (Same as: l Hydrocodone 04:10: [place] [facility] Bitartrate 00 325/5) Do 5 MG Oral not exceed Tablet 4gm/day of acetaminop hen. Acetaminoph No Notes: Aj peggy en 325 MG / 16 (Same as: l Hydrocodone 04:10: [place] [facility] Bitartrate 00 325/5) Do 5 MG Oral not exceed Tablet 4gm/day of acetaminop hen. Acetaminoph No Notes: Aj peggy en 325 MG / 16 (Same as: l Hydrocodone 04:10: [place] [facility] Bitartrate 00 325/5) Do 5 MG Oral not exceed Tablet 4gm/day of acetaminop hen. Acetaminoph No Notes: Aj peggy en 325 MG / 16 (Same as: l Hydrocodone 04:10: [place] [facility] Bitartrate 00 325/5) Do 5 MG Oral not exceed Tablet 4gm/day of acetaminop hen. Acetaminoph No Notes: Aj peggy en 325 MG / 716 (Same as: l Hydrocodone 04:10: [place] [facility] Bitartrate 00 325/5) Do 5 MG Oral not exceed Tablet 4gm/day of acetaminop hen. Acetaminoph No Notes: Aj peggy en 325 MG / 16 (Same as: l Hydrocodone 04:10: [place] [facility] Bitartrate 00 325/5) Do 5 MG Oral not exceed Tablet 4gm/day of acetaminop hen. Acetaminoph No Notes: Aj peggy en 325 MG / 16 (Same as: l Hydrocodone 04:10: [place] [facility] Bitartrate 00 325/5) Do 5 MG Oral not exceed Tablet 4gm/day of acetaminop hen. Acetaminoph No Notes: Aj peggy en 325 MG / 16 (Same as: l Hydrocodone 04:10: [place] [facility] Bitartrate 00 325/5) Do 5 MG Oral not exceed Tablet 4gm/day of acetaminop hen. Acetaminoph No Notes: Aj peggy en 325 MG / 16 (Same as: l Hydrocodone 04:10: [place] [facility] Bitartrate 00 325/5) Do 5 MG Oral not exceed Tablet 4gm/day of acetaminop hen. Acetaminoph No Notes: Aj peggy en 325 MG / 16 (Same as: l Hydrocodone 04:10: [place] [facility] Bitartrate 00 325/5) Do 5 MG Oral not exceed Tablet 4gm/day of acetaminop hen. Acetaminoph No Notes: Aj peggy en 325 MG / 16 (Same as: l Hydrocodone 04:10: [place] [facility] Bitartrate 00 325/5) Do 5 MG Oral not exceed Tablet 4gm/day of acetaminop hen. Acetaminoph No Notes: Aj peggy en 325 MG / 16 (Same as: l Hydrocodone 04:10: [place] [facility] Bitartrate 00 325/5) Do 5 MG Oral not exceed Tablet 4gm/day of acetaminop hen. Acetaminoph No Notes: Aj peggy en 325 MG / 716 (Same as: l Hydrocodone 04:10: [place] [facility] Bitartrate 00 325/5) Do 5 MG Oral not exceed Tablet 4gm/day of acetaminop hen. Acetaminoph No Notes: Aj peggy en 325 MG / 16 (Same as: l Hydrocodone 04:10: [place] [facility] Bitartrate 00 325/5) Do 5 MG Oral not exceed Tablet 4gm/day of acetaminop hen. Acetaminoph No Notes: Aj peggy en 325 MG / 16 (Same as: l Hydrocodone 04:10: [place] [facility] Bitartrate 00 325/5) Do 5 MG Oral not exceed Tablet 4gm/day of acetaminop hen. Acetaminoph No Notes: Aj peggy en 325 MG / 16 (Same as: l Hydrocodone 04:10: [place] [facility] Bitartrate 00 325/5) Do 5 MG Oral not exceed Tablet 4gm/day of acetaminop hen. Acetaminoph No Notes: Aj peggy en 325 MG / 16 (Same as: l Hydrocodone 04:10: [place] [facility] Bitartrate 00 325/5) Do 5 MG Oral not exceed Tablet 4gm/day of acetaminop hen. Acetaminoph No Notes: Aj peggy en 325 MG / 16 (Same as: l Hydrocodone 04:10: [place] [facility] Bitartrate 00 325/5) Do 5 MG Oral not exceed Tablet 4gm/day of acetaminop hen. Acetaminoph No Notes: Aj peggy en 325 MG / 16 (Same as: l Hydrocodone 04:10: [place] [facility] Bitartrate 00 325/5) Do 5 MG Oral not exceed Tablet 4gm/day of acetaminop hen. Acetaminoph No Notes: Aj peggy en 325 MG / 16 (Same as: l Hydrocodone 04:10: [place] [facility] Bitartrate 00 325/5) Do 5 MG Oral not exceed Tablet 4gm/day of acetaminop hen. Acetaminoph No Notes: Aj peggy en 325 MG / 7-16 (Same as: l Hydrocodone 04:10: [place] [facility] Bitartrate 00 325/5) Do 5 MG Oral not exceed Tablet 4gm/day of acetaminop hen. Acetaminoph No Notes: Aj peggy en 325 MG / 7-16 (Same as: l Hydrocodone 04:10: [place] [facility] Bitartrate 00 325/5) Do 5 MG Oral not exceed Tablet 4gm/day of acetaminop hen. Immunizations Ordered Immunization Filled Immunization Date Status Commen ts Source Name Name PFIZER COVID-19 MRNA 2021-01-01 Completed [facility] VACCINATION 00:00:00 [facility] PFIZER COVID-19 MRNA 2021-01-01 Completed [facility] odist VACCINATION 00:00:00 [facility] PFIZER COVID-19 MRNA 2021-01-01 Completed [facility]ist VACCINATION 00:00:00 [facility] PFIZER COVID-19 MRNA 2021-01-01 Completed [facility] VACCINATION 00:00:00 [facility] PFIZER COVID-19 MRNA 2021-01-01 Completed [facility]ist VACCINATION 00:00:00 [facility] PFIZER COVID-19 MRNA 2021-01-01 Completed [facility] VACCINATION 00:00:00 [facility] FLUZONE HIGH-DOSE PF 2020-12-21 Completed Meth odist 00:00:00 [facility] FLUZONE HIGH-DOSE PF 2020-12-21 Completed Meth odist 00:00:00 [facility] FLUZONE HIGH-DOSE PF 2020-12-21 Completed Meth odist 00:00:00 [facility] FLUZONE HIGH-DOSE PF 2020-12-21 Completed Meth odist 00:00:00 [facility] FLUZONE HIGH-DOSE PF 2020-12-21 Completed Meth odist 00:00:00 [facility] FLUZONE HIGH-DOSE PF 2020-12-21 Completed Meth odist 00:00:00 [facility] PFIZER COVID-19 MRNA 2020-11-26 Completed Meth odist VACCINATION 00:00:00 [facility] PFIZER COVID-19 MRNA 2020-11-26 Completed [facility] odist VACCINATION 00:00:00 [facility] PFIZER COVID-19 MRNA 2020-11-26 Completed [facility] odist VACCINATION 00:00:00 [facility] PFIZER COVID-19 MRNA 2020-11-26 Completed [facility] odist VACCINATION 00:00:00 [facility] PFIZER COVID-19 MRNA 2020-11-05 Completed [facility] odist VACCINATION 00:00:00 [facility] PFIZER COVID-19 MRNA 2020-11-05 Completed [facility] odist VACCINATION 00:00:00 [facility] PFIZER COVID-19 MRNA 2020-11-05 Completed [facility] odist VACCINATION 00:00:00 [facility] PFIZER COVID-19 MRNA 2020-11-05 Completed [facility] VACCINATION 00:00:00 Hospital Pneumococcal 2020-07-02 Completed [facility] Polysaccharide 00:00:00 Hospital Pneumococcal 2020-07-02 Completed [facility] Polysaccharide 00:00:00 Hospital Pneumococcal 2020-07-02 Completed [facility] Polysaccharide 00:00:00 Hospital Pneumococcal 2020-07-02 Completed [facility] Polysaccharide 00:00:00 Hospital Pneumococcal 2020-07-02 Completed [facility] Polysaccharide 00:00:00 Hospital Pneumococcal 2020-07-02 Completed [facility] Polysaccharide 00:00:00 [facility] FLUCELVAX QUAD PF 2019-12-[address] 00:00:00 [facility] FLUCELVAX QUAD PF 2019-12-[address] 00:00:00 [facility] FLUCELVAX QUAD PF 2019-12-[address] 00:00:00 [facility] FLUCELVAX QUAD PF 2019-12-[address] 00:00:00 [facility] FLUCELVAX QUAD PF 2019-12-[address] 00:00:00 [facility] FLUCELVAX QUAD PF 2019-12-[address] 00:00:00 [facility] Tdap 2018-06-08 Completed [facility] 00:00:00 [facility] Pneumococcal 2018-06-08 Completed [facility] Conjugate 13-Valent 00:00:00 [facility] Tdap 2018-06-08 Completed Muslim 00:00:00 [facility] Pneumococcal 2018-06-08 Completed [facility] Conjugate 13-Valent 00:00:00 [facility] Tdap 2018-06-08 Completed [facility] 00:00:00 Hospital Pneumococcal 2018-06-08 Completed [facility] Conjugate 13-Valent 00:00:00 [facility] Tdap 2018-06-08 Completed Muslim 00:00:00 [facility] Pneumococcal 2018-06-08 Completed [facility] Conjugate 13-Valent 00:00:00 [facility] Tdap 2018-06-08 Completed [facility] 00:00:00 [facility] Pneumococcal 2018-06-08 Completed [facility] Conjugate 13-Valent 00:00:00 [facility] Tdap 2018-06-08 Completed [facility] 00:00:00 Hospital Pneumococcal 2018-06-08 Completed [facility] Conjugate 13-Valent 00:00:00 [facility] pneum[facility] 2015-10-14 [facility] 23-valent vaccine 16:47:00 [place] pneumococcal 2015-10-14 Completed [facility] 23-valent vaccine 16:47:00 [place] pneumococcal 2015-10-14 Completed [facility] 23-valent vaccine 16:47:00 [place] pneumococcal 2015-10-14 Completed [facility] 23-valent vaccine 16:47:00 [place] pneumococcal 2015-10-14 Completed [facility] 23-valent vaccine 16:47:00 [place] pneumococcal 2015-10-14 Completed [facility] 23-valent vaccine 16:47:00 [place] pneumococcal 2015-10-14 Completed [facility] 23-valent vaccine 16:47:00 [place] pneumococcal 2015-10-14 Completed [facility] 23-valent vaccine 16:47:00 [place] pneumococcal 2015-10-14 Completed [facility] 23-valent vaccine 16:47:00 [place] pneumococcal 2015-10-14 Completed [facility] 23-valent vaccine 16:47:00 [place] pneumococcal 2015-10-14 Completed [facility] 23-valent vaccine 16:47:00 [place] pneumococcal 2015-10-14 Completed [facility] 23-valent vaccine 16:47:00 [place] pneumococcal 2015-10-14 Completed [facility] 23-valent vaccine 16:47:00 [place] pneumococcal 2015-10-14 Completed [facility] 23-valent vaccine 16:47:00 [place] pneumococcal 2015-10-14 Completed [facility] 23-valent vaccine 16:47:00 [place] pneumococcal 2015-10-14 Completed [facility] 23-valent vaccine 16:47:00 [place] pneumococcal 2015-10-14 Completed [facility] 23-valent vaccine 16:47:00 [place] pneumococcal 2015-10-14 Completed [facility] 23-valent vaccine 16:47:00 [place] pneumococcal 2015-10-14 Completed [facility] 23-valent vaccine 16:47:00 [place] pneumococcal 2015-10-14 Completed [facility] 23-valent vaccine 16:47:00 [place] pneumococcal 2015-10-14 Completed [facility] 23-valent vaccine 16:47:00 [place] pneumococcal 2015-10-14 Completed [facility] 23-valent vaccine 16:47:00 [place] pneumococcal 2015-10-14 Completed [facility] 23-valent vaccine 16:47:00 [place] pneumococcal 2015-10-14 Completed [facility] 23-valent vaccine 16:47:00 [place] pneumococcal 2015-10-14 Completed [facility] 23-valent vaccine 16:47:00 [place] pneumococcal 2015-10-14 Completed [facility] 23-valent vaccine 16:47:00 [place] pneumococcal 2015-10-14 Completed [facility] 23-valent vaccine 16:47:00 [place] pneumococcal 2015-10-14 Completed [facility] 23-valent vaccine 16:47:00 [place] pneumococcal 2015-10-14 Completed [facility] 23-valent vaccine 16:47:00 [place] pneumococcal 2015-10-14 Completed [facility] 23-valent vaccine 16:47:00 [place] pneumococcal 2015-10-14 Completed [facility] 23-valent vaccine 16:47:00 [place] pneumococcal 2015-10-14 Completed [facility] 23-valent vaccine 16:47:00 [place] pneumococcal 2015-10-14 Completed [facility] 23-valent vaccine 16:47:00 [place] pneumococcal 2015-10-14 Completed [facility] 23-valent vaccine 16:47:00 [place] pneumococcal 2015-10-14 Completed [facility] 23-valent vaccine 16:47:00 [place] pneumococcal 2015-10-14 Completed [facility] 23-valent vaccine 16:47:00 [place] pneumococcal 2015-10-14 Completed [facility] 23-valent vaccine 16:47:00 [place] pneumococcal 2015-10-14 Completed [facility] 23-valent vaccine 16:47:00 [place] pneumococcal 2015-10-14 Completed [facility] 23-valent vaccine 16:47:00 [place] pneumococcal 2015-10-14 Completed [facility] 23-valent vaccine 16:47:00 [place] pneumococcal 2015-10-14 Completed [facility] 23-valent vaccine 16:47:00 [place] pneumococcal 2015-10-14 Completed [facility] 23-valent vaccine 16:47:00 [place] pneumococcal 2015-10-14 Completed [facility] 23-valent vaccine 16:47:00 [place] pneumococcal 2015-10-14 Completed [facility] 23-valent vaccine 16:47:00 [place] pneumococcal 2015-10-14 Completed [facility] 23-valent vaccine 16:47:00 [place] pneumococcal 2015-10-14 Completed [facility] 23-valent vaccine 16:47:00 [place] Pneumococcal 2015-10-14 Completed [facility] Polysaccharide 00:00:00 [facility] Pneumococcal 2015-10-14 Completed [facility] Polysaccharide 00:00:00 Hospital Pneumococcal 2015-10-14 Completed [facility] Polysaccharide 00:00:00 Hospital Influenza (IM) 2013-02-04 Completed [facility] Preservative Free 00:[facility]:00 [facility] Influenza (IM) 2013-02-04 Completed [facility] Preservative Free 00:00:00 [facility] Influenza (IM) 2013-02-04 Completed [facility] Preservative Free 00:00:00 [facility] Influenza (IM) 2013-02-04 Completed [facility] Preservative Free 00:00:00 [facility] Influenza (IM) 2013-02-04 Completed [facility] Preservative Free 00:00:00 [facility] Influenza (IM) 2013-02-04 Completed [facility] Preservative Free 00:00:00 [facility] Vital Signs Vital Name Observation Time Observation Value Comments Source Systolic blood 2022-10-27 16:42:00 152 mm[Hg] [facility] pressure Diastolic blood 2022-10-27 16:42:00 68 mm[Hg] [facility] pressure Heart rate 2022-10-27 16:42:00 58 /min [facility] Body temperature 2022-10-27 16:42:00 36.67 [facility] Respiratory rate 2022-10-27 16:42:00 19 /min [facility] Body height 2022-10-27 16:42:00 167.6 cm [facility] Body weight 2022-10-27 16:42:00 69.4 kg [facility] BMI 2022-10-27 16:42:00 24.69 kg/m2 [facility] Oxygen saturation in 2022-10-27 16:42:00 100 /min [facility] Arterial blood by Pulse oximetry Body height 2022-06-24 16:43:00 167.6 cm [facility] Body weight 2022-06-24 16:43:00 69.4 kg [facility] BMI 2022-06-24 16:43:00 24.69 kg/m2 [facility] Body height 2022-04-23 15:36:00 167.6 cm [facility] Body weight 2022-04-23 15:36:00 69.4 kg [facility] BMI 2022-04-23 15:36:00 24.69 kg/m2 [facility] Systolic blood 2022-04-08 13:51:00 126 mm[Hg] [facility] pressure Diastolic blood 2022-04-08 13:51:00 74 [facility]Hg[facility] Heart rate 2022-04-08 13:51:00 63 /min [facility] Body temperature 2022-04-08 13:51:00 36.28 [facility] Oxygen saturation in 2022-04-08 13:51:00 100 /min [facility] Arterial blood by Pulse oximetry Heart Rate 2021-11-24 08:00:00 [facility] [place] Respitory Rate 2021-11-24 08:00:00 [facility] [place] Systolic (mm Hg) 2021-11-24 08:00:00 Aj rial [place] Diastolic (mm Hg) 2021-11-24 08:00:00 [facility] orial [place] Height 2021-11-24 05:22:00 167.64 cm [facility] [place] BMI Calculated 2021-11-24 05:22:00 [facility] [place] Weight 2021-11-24 05:22:00 [facility] [place] Systolic (mm Hg) 2021-11-24 05:22:00 Aj rial [place] Diastolic (mm Hg) 2021-11-24 05:22:00 Mem o[facility] [place] Heart Rate 2021-11-24 05:22:00 [facility] [place] Respitory Rate 2021-11-24 05:22:00 [facility] [place] Temperature Oral (F) 2021-11-24 05:22:00 98.1 F [facility] Systolic blood 2021-10-22 19:25:00 145 mm[Hg] [facility] pressure Diastolic blood 2021-10-22 19:25:00 70 mm[facility]Hg[facility] [place] [place] pressure Heart rate 2021-10-22 19:25:00 71 /min [facility] Body temperature 2021-10-22 19:25:00 36.67 [facility] Body height 2021-10-22 19:25:00 162.6 cm [place] [facility] Body weight 2021-10-22 19:25:00 70.761 kg [place] [facility] BMI 2021-10-22 19:25:00 26.78 kg/m2 [place] [facility] Oxygen saturation in 2021-10-22 19:25:00 100 /min [facility] Arterial blood by Pulse oximetry Respitory Rate 2021-05-28 03:50:00 [facility] [place] Heart Rate 2021-05-28 03:50:00 [facility] [place] Systolic (mm Hg) 2021-05-28 03:50:00 Aj rial [place] Diastolic (mm Hg) 2021-05-28 03:50:00 Mem o[facility] [place] Height 2021-05-28 00:21:00 162.56 cm [facility] [place] BMI Calculated 2021-05-28 00:21:00 [facility] [place] Weight 2021-05-28 00:21:00 [facility] Systolic (mm Hg) 2021-05-28 00:21:00 Aj rial [place] Diastolic (mm Hg) 2021-05-28 00:21:00 Mem o[facility] Heart Rate 2021-05-28 00:21:00 [facility] Respitory Rate 2021-05-28 00:21:00 [facility] [place] Temperature Oral (F) 2021-05-28 00:21:00 97.8 F [facility] Respiratory rate 2021-05-22 18:28:00 16 /min [facility] Systolic blood 2021-04-16 16:40:00 166 mm[Hg] [facility] pressure Diastolic blood 2021-04-16 16:40:00 84 mm[Hg] [facility] pressure Heart rate 2021-04-16 16:40:00 75 /min [facility] Body temperature 2021-04-16 16:40:00 36.5 Carola [facility] Respiratory rate 2021-04-16 16:40:00 16 /min [facility] Body height 2021-04-16 16:40:00 165.1 cm [facility] Body weight 2021-04-16 16:40:00 70.761 kg [facility] BMI 2021-04-16 16:40:00 25.96 kg/m2 [facility] Oxygen saturation in 2020-12-21 17:31:00 99 /min [facility] Arterial blood by Pulse oximetry Systolic (mm Hg) 2019-04-09 23:05:00 Aj rial [place] Diastolic (mm Hg) 2019-04-09 23:05:00 Mem [facility] [place] Respitory Rate 2019-04-09 23:05:00 [facility] Heart Rate 2019-04-09 23:05:00 [facility] [place] Temperature Oral (F) 2019-04-09 23:05:00 98.1 F [facility] Systolic (mm Hg) 2019-04-09 21:53:00 Aj rial [place] Diastolic (mm Hg) 2019-04-09 21:53:00 Mem [facility] [place] Heart Rate 2019-04-09 21:53:00 [facility] [place] Respitory Rate 2019-04-09 21:53:00 [facility] Temperature Oral (F) 2019-04-09 21:53:00 98.6 F [facility] Height 2019-04-09 21:53:00 167.64 cm [facility] BMI Calculated 2019-04-09 21:53:00 [facility] [place] Weight 2019-04-09 21:53:00 [facility] [place] Temperature Oral (F) 2015-10-16 16:53:00 98 F [facility] Respitory Rate 2015-10-16 16:53:00 [facility] [place] Heart Rate 2015-10-16 16:53:00 [facility] [place] Systolic (mm Hg) 2015-10-16 16:53:00 Aj rial [place] Diastolic (mm Hg) 2015-10-16 16:53:00 [facility] [place] Systolic (mm Hg) 2015-10-16 13:00:00 Aj rial [place] Diastolic (mm Hg) 2015-10-16 13:00:00 Mem [facility] Respitory Rate 2015-10-16 13:00:00 [facility] Temperature Oral (F) 2015-10-16 13:00:00 98.4 F [facility] [place] Heart Rate 2015-10-16 13:00:00 [facility] Temperature Oral (F) 2015-10-16 09:00:00 98.7 F [facility] Heart Rate 2015-10-16 09:00:00 [facility] [place] Respitory Rate 2015-10-16 09:00:00 [facility] [place] Systolic (mm Hg) 2015-10-16 09:00:00 Aj rial [place] Diastolic (mm Hg) 2015-10-16 09:00:00 Mem [facility] BMI Calculated 2015-10-14 00:18:00 [facility] [place] Height 2015-10-14 00:18:00 170.18 cm [facility] Weight 2015-10-14 00:18:00 [facility] [place] BMI Calculated 2015-10-13 08:46:00 [facility] [place] Weight 2015-10-13 08:46:00 [facility] Height 2015-10-13 08:46:00 177.8 cm [facility] Heart Rate 2015-10-13 06:30:00 [facility] [place] Respitory Rate 2015-10-13 06:30:00 [facility] Systolic (mm Hg) 2015-10-13 06:30:00 Aj rial [facility] Diastolic (mm Hg) 2015-10-13 06:30:00 Mem [facility] [place] Weight 2015-10-13 03:57:00 [facility] [place] BMI Calculated 2015-10-13 03:57:00 [facility] Temperature Oral (F) 2015-10-13 03:57:00 98.7 F [facility] [place] Respitory Rate 2015-10-13 03:57:00 [facility] Height 2015-10-13 03:57:00 162.56 cm [facility] Heart Rate 2015-10-13 03:57:00 [facility] [place] Systolic (mm Hg) 2015-10-13 03:57:00 Aj rial [place] Diastolic (mm Hg) 2015-10-13 03:57:00 Mem [facility] [place] Procedures Procedure Date / Time Performing Clinician Source Performed XR CHEST 2 2022-10-15 16:25:00 Griselda Tolbert [facility] XR CHEST 2 2022-09-01 15:12:23 Fran Mota spital ECG 12-LEAD 2022-09-01 15:00:08 Fran Mota spital CBC WITH PLATELET AND 2022-09-01 14:58:00 Fran Mota [facility] DIFFERENTIAL COMPREHENSIVE METABOLIC 2022-09-01 14:58:00 Fran Mota [facility] PANEL B NATRIURETIC PEP, I-STAT 2022-09-01 14:58:00 Fran Mota [facility] TROPONIN, I-STAT 2022-09-01 14:58:00 Fran Mota ospital ESTIMATED GFR 2022-09-01 14:58:00 Fran Motaist Ho spital ECG ED PRELIMINARY 2022-09-01 14:50:59 Fran Mota [facility] INTERPRETATION MRI FOOT WO CONTRAST RIGHT 2022-05-30 23:15:00 [facility] XR ANKLE 3+ VW RIGHT 2022-05-27 16:52:[address] [facility] XR FOOT 3+ VW RIGHT 2022-05-27 16:52:[address] [facility] [address] ABDOMEN PELVIS W 2022-05-06 23:24:00 [facility] CONTR[facility] POC CREATININE 2022-05-06 23:14:00 [facility] ESTIMATED GFR 2022-05-06 23:14:00 [facility] XR SCAPULA RIGHT 2022-04-23 17:02:00 [facility] URINALYSIS SCREEN AND 2022-04-23 15:53:00 [facility] [place] [facility] MICROSCOPY, WITH REFLEX TO CULTURE URINE CULTURE 2022-04-08 14:20:00 [facility] POC URINALYSIS DIPSTICK 2022-04-08 14:17:39 [facility]AL 2021-12-06 18:20[facility] URINE CULTURE 2021-12-06 16:30:00 [facility] POC URINALYSIS DIPSTICK 2021-12-06 16:26:10 [facility] COMPREHENSIVE METABOLIC 2021-10-22 20:30:00 Gurvinder [facility] PANEL CBC WITH PLATELET AND 2021-10-22 20:30:00 [facility] [place] [facility] DIFFERENTIAL CBC WITH PLATELET AND 2021-10-22 20:30:00 [facility] DIFFERENTIAL URINE CULTURE 2021-10-22 19:55:00 Didi [facility] POC URINALYSIS DIPSTICK 2021-10-22 19:44:00 Didi [facility] SURGICAL PATHOLOGY REQUEST 2021-08-27 18:32:00 Didi [facility] MAMMO DIAGNOSTIC POST CLIP 2021-08-27 18:30:53 Didi [facility] LEFT US BREAST BIOPSY LEFT 2021-08-27 18:08:50 Didi [place] [facility] US BREAST COMPLETE LEFT 2021-08-20 16:26:04 Didi [facility] MAMMO BREAST DIAGNOSTIC 2021-08-20 16:01:07 Didi [facility] TOMOSYNTHESIS LEFT MAMMO BREAST SCREEN 2021-08-01 20:39:00 Didi [facility] TOMOSYNTHESIS BILATERAL XR HIP 2-3 VIEWS LEFT 2021-07-16 21:50:[address] [facility] LIPID PANEL WITH REFLEX TO 2021-07-11 14:53:00 Didi [facility] DIRECT LDL CBC WITH PLATELET AND 2021-07-11 14:53:[address] [facility] DIFFERENTIAL THYROID STIMULATING 2021-07-11 14:53:00 Gurvinder [facility] HORMONE HEMOGLOBIN A1C 2021-07-11 14:53:00 Didi [facility] COMPREHENSIVE METABOLIC 2021-07-11 14:53:00 Didi [facility] PANEL MICROALBUMIN / CREATININE 2021-07-11 14:53:00 Griselda Tolbert [facility] URINE RATIO VITAMIN D 25 HYDROXY LEVEL 2021-07-11 14:53:00 Didi [facility] VITAMIN B12 LEVEL 2021-07-11 14:53:00 Didi [place] [facility] TOTAL IRON BINDING 2021-07-11 14:53:00 Didi [place] [facility] CAPACITY FERRITIN LEVEL 2021-07-11 14:53:00 Didi [facility] XR FOOT 3+ VW RIGHT 2021-06-03 19:19:52 Cedric Rojas [facility] Yovani HEPATITIS C ANTIBODY 2021-04-16 17:47:00 [facility] [place] [facility] LIPID PANEL WITH REFLEX TO 2021-04-16 17:47:00 [facility] DIRECT LDL THYROID STIMULATING 2021-04-16 17:47:00 [facility] HORMONE COMPREHENSIVE METABOLIC 2021-04-16 17:47:00 [facility] PANEL CBC WITH PLATELET AND 2021-04-16 17:47:00 [facility] DIFFERENTIAL URINALYSIS, COMPLETE, WITH 2021-04-16 17:47:00 [facility] REFLEX TO CULTURE POC GLYCOSYLATED 2021-04-16 17:28:00 Gurvinder [place] [facility] HEMOGLOBIN (HGB A1C) MAMMO BREAST SCREEN 2021-01-03 16:22:15 [facility] TOMOSYNTHESIS BILATERAL BONE DENSITY 2021-01-03 15:54:46 Gurvinder [facility] FLUZONE HIGH-DOSE QUAD PF 2020-12-21 18:29:00 [facility] (0.7ML SYRINGE) COMPREHENSIVE METABOLIC 2020-07-02 15:[facility] PANEL CBC WITH PLATELET AND 2020-07-02 15:13:00 [facility] [place] [facility] DIFFERENTIAL LIPID PANEL WITH REFLEX TO 2020-07-02 15:13:00 [facility] DIRECT LDL HEMOGLOBIN A1C 2020-07-02 15:13:00 [facility] THYROID STIMULATING 2020-07-02 15:13:00 [facility] HORMONE T4, FREE 2020-07-02 15:13:00 [facility] VITAMIN D 25 HYDROXY LEVEL 2020-07-02 15:13:00 [facility] VITAMIN B12 LEVEL 2020-07-02 15:13:00 Griselda Tolbert [facility] URINALYSIS, AUTOMATED WITH 2020-07-02 15:13:00 GurvinderGriselda [facility] MICROSCOPY PNEUMOCOCCAL 2020-07-02 15:03:00 GurvinderGriselda [facility] POLYSACCHARIDE VACCINE 23-VALENT =>2YO SQ IM [id number] 2019-07-22 00:00:00 [facility] [id number] 2019-07-17 00:00:00 [facility] Craniotomy [facility] Plan of Care Planned Activity Planned Date Details Comments Source Future Scheduled 2022-11-12 Screening for Muslim Test 07:36:08 malignant neoplasm [facility] colon (procedure) [code = 489470388] Future Scheduled 2022-11-12 Screening for Muslim Test 07:36:08 malignant neoplasm [facility] colon (procedure) [code = 801545706] Future Scheduled 2022-11-12 Screening for Muslim Test 07:36:08 malignant neoplasm [facility] colon (procedure) [code = 538660396] Future Scheduled 2022-11-12 SHINGLES VACCINES [facility] Test 07:36:08 (1 of 2) [code = Hospital SHINGLES VACCINES (1 of 2)] Future Scheduled 2022-11-12 DIABETIC FOOT EXAM [facility] 07:36:08 [code = DIABETIC Hospital FOOT EXAM] Future Scheduled 2022-11-12 BREAST CANCER Muslim Test 07:36:08 SCREENING [code = Hospital BREAST CANCER SCREENING] Future Scheduled 2022-11-12 INFLUENZA VACCINE [facility] Test 07:36:08 [code = INFLUENZA Hospital VACCINE] Future Scheduled 2022-11-12 COVID-19 VACCINE (4 Postponed from [facility]t [facility] Test 07:36:08 - Pfizer series) 02/26/2021 Hospital [code = COVID-19 (Patient Refused) VACCINE (4 - Pfizer series)] Future Scheduled 2022-11-12 DIABETES: RETINAL [facility] Test 07:36:08 EYE EXAM [code = Hospital DIABETES: RETINAL EYE EXAM] Future Scheduled 2022-11-12 Screening for Muslim Test 07:36:08 malignant neoplasm Hospital of colon (procedure) [code = 215189878] Future Scheduled 2022-11-12 Screening for Muslim Test 07:36:08 malignant neoplasm Hospital of colon (procedure) [code = 404087855] Future Scheduled 2022-07-07 SHINGLES VACCINES [facility] Test 08:57:59 (1 of 2) [code = Hospital SHINGLES VACCINES (1 of 2)] Future Scheduled 2022-07-07 DIABETIC FOOT EXAM [facility] 08:57:59 [code = DIABETIC Hospital FOOT EXAM] Future Scheduled 2022-07-07 BREAST CANCER Muslim Test 08:57:59 SCREENING [code = Hospital BREAST CANCER SCREENING] Future Scheduled 2022-07-07 INFLUENZA VACCINE [facility] Test 08:57:59 [code = INFLUENZA Hospital VACCINE] Future Scheduled 2022-07-07 COVID-19 VACCINE (4 Postponed from [facility] Test 08:57:59 - Booster for 02/26/2021 Hospital Pfizer series) (Patient Refused) [code = COVID-19 VACCINE (4 - Booster for Pfizer series)] Future Scheduled 2022-07-07 DIABETES: RETINAL [facility] Test 08:57:59 EYE EXAM [code = Hospital DIABETES: RETINAL EYE EXAM] Future Scheduled 2022-07-07 COLONOSCOPY Muslim Test 08:57:59 SCREENING [code = Hospital COLONOSCOPY SCREENING] Future Scheduled 2022-04-24 SHINGLES VACCINES Method ist Test 04:39:53 (1 of 2) [code = Hospital SHINGLES VACCINES (1 of 2)] Future Scheduled 2022-04-24 INFLUENZA VACCINE Method ist Test 04:39:53 [code = INFLUENZA Hospital VACCINE] Future Scheduled 2022-04-24 DIABETIC FOOT EXAM [facility] Test 04:39:53 [code = DIABETIC Hospital FOOT EXAM] Future Scheduled 2022-04-24 BREAST CANCER Muslim Test 04:39:53 SCREENING [code = Hospital BREAST CANCER SCREENING] Future Scheduled 2022-04-24 COVID-19 VACCINE (4 Postponed from [facility] Test 04:39:53 - Booster for 02/26/2021 Hospital Pfizer series) (Patient Refused) [code = COVID-19 VACCINE (4 - Booster for Pfizer series)] Future Scheduled 2022-04-24 DIABETES: RETINAL [facility] Test 04:39:53 EYE EXAM [code = Hospital DIABETES: RETINAL EYE EXAM] Future Scheduled 2022-04-24 COLONOSCOPY Muslim Test 04:39:53 SCREENING [code = Hospital COLONOSCOPY SCREENING] Future Scheduled 2021-11-16 HEPATITIS B Muslim Test 20:07:13 VACCINES (1 of 3 - Hospital 3-dose series) [code = HEPATITIS B VACCINES (1 of 3 - 3-dose series)] Future Scheduled 2021-11-16 SHINGLES VACCINES Method ist Test 20:07:13 (1 of 2) [code = Hospital SHINGLES VACCINES (1 of 2)] Future Scheduled 2021-11-16 DIABETES: RETINAL [facility] Test 20:07:13 EYE EXAM [code = Hospital DIABETES: RETINAL EYE EXAM] Future Scheduled 2021-11-16 COVID-19 VACCINE (4 Meth odist Test 20:07:13 - Booster for Hospital Pfizer series) [code = COVID-19 VACCINE (4 - Booster for Pfizer series)] Future Scheduled 2021-11-16 INFLUENZA VACCINE Method ist Test 20:07:13 [code = INFLUENZA Hospital VACCINE] Future Scheduled 2021-11-16 DIABETIC FOOT EXAM [facility] Test 20:07:13 [code = DIABETIC Hospital FOOT EXAM] Future Scheduled 2021-11-16 BREAST CANCER Muslim Test 20:07:13 SCREENING [code = Hospital BREAST CANCER SCREENING] Future Scheduled 2021-11-16 COLONOSCOPY Muslim Test 20:07:13 SCREENING [code = Hospital COLONOSCOPY SCREENING] Future Scheduled 2021-04-25 SHINGLES VACCINES Method ist Test 08:06:36 (#1) [code = Hospital SHINGLES VACCINES (#1)] Future Scheduled 2021-04-25 DIABETES: RETINAL [facility] Test 08:06:36 EYE EXAM [code = Hospital DIABETES: RETINAL EYE EXAM] Future Scheduled 2021-04-25 COVID-19 VACCINE (2 Meth odist Test 08:06:36 - Pfizer 3-dose Hospital series) [code = COVID-19 VACCINE (2 - Pfizer 3-dose series)] Future Scheduled 2021-04-25 DIABETIC FOOT EXAM [facility] Test 08:06:36 [code = DIABETIC Hospital FOOT EXAM] Future Scheduled 2021-04-25 BREAST CANCER Muslim Test 08:06:36 SCREENING [code = Hospital BREAST CANCER SCREENING] Future Scheduled 2021-04-25 COLONOSCOPY Muslim Test 08:06:36 SCREENING [code = Hospital COLONOSCOPY SCREENING] Future Scheduled 2021-04-25 SHINGLES VACCINES Method ist Test 08:06:36 (#1) [code = Hospital SHINGLES VACCINES (#1)] Future Scheduled 2021-04-25 DIABETES: RETINAL Method ist Test 08:06:36 EYE EXAM [code = Hospital DIABETES: RETINAL EYE EXAM] Future Scheduled 2021-04-25 COVID-19 VACCINE (2 Meth odist Test 08:06:36 - Pfizer 3-dose Hospital series) [code = COVID-19 VACCINE (2 - Pfizer 3-dose series)] Future Scheduled 2021-04-25 DIABETIC FOOT EXAM [facility] Test 08:06:36 [code = DIABETIC Hospital FOOT EXAM] Future Scheduled 2021-04-25 BREAST CANCER Muslim Test 08:06:36 SCREENING [code = Hospital BREAST CANCER SCREENING] Future Scheduled 2021-04-25 COLONOSCOPY Muslim Test 08:06:36 SCREENING [code = Hospital COLONOSCOPY SCREENING] Encounters Start End Encounter Admission Attending Care Care Encounter Source Date/Time Date/Time Type Type Clinicians Facility Department ID 2021-11-27 Outpatient [facility] [id number] OR 17:15:46 [id number] Health 2022-11-10 2022-11-10 Telephone Didi, 1.2.840.1 [id number] Methodi 00:00:00 00:00:00 Griselda [place] [address]309.1.[address] 3.430.2.7 Hospit a .3.317096 l .8 2022-10-27 2022-10-27 Office Maura, 1.2.840.1 [id number] Methodi 11:00:00 13:06:54 Visit Chadd 04814.1.[address] 3.430.2.7 Hospit a .3.784977 l .8 2022-10-27 2022-10-27 Outpatient [facility] [id number] Sentinel 00:00:00 00:00:[address] 2022-10-16 2022-10-16 Refill Didi, 1.2.840.1 [id number] Methodi 00:00:00 00:00:00 Griselda [place] [address]447.1.[address] 3.430.2.7 Hospit a .3.938804 l .8 2022-10-15 2022-10-15 [facility] Didi, 1.2.840.1 [id number] Methodi 11:03:45 23:59:00 Encounter Griselda [place] [address]957.1.[address] 3.430.2.7 Hospit a .3.092593 l .8 2022-10-15 2022-10-15 Office Harmouch, 1.2.840.1 [id number] [id number] Methodi 10:00:00 10:49:13 Visit Griselda [place] [address]508.1.[address] 3.430.2.7 Hospit a .3.144509 l .8 2022-10-15 2022-10-15 Outpatient HARMOUCH, [facility] [id number] Sentinel 00:00:00 00:00:00 GRIS[address] 2022-10-15 2022-10-15 [facility] [id number] Sentinel 00:00:00 00:00:00 GRIS[address] 2022-10-14 2022-10-14 Telephone Harmouch, 1.2.840.1 [id number] Methodi 00:00:00 00:00:00 [address] Caanda [address]141.1.[address] 3.430.2.7 Hospit a .3.081551 l .8 2022-10-13 2022-10-13 Telephone Harmouch, 1.2.840.1 [id number] 21 [id number] Methodi 00:00:00 00:00:00 Griselda [place] [address]698.1.[address] 3.430.2.7 Hospit a .3.451993 l .8 2022-09-08 2022-09-08 Office Hode, 1.2.840.1 [id number] Methodi 08:30:00 09:40:49 Visit Jonathonr 69681.1.[address] 3.430.2.7 Hospit a .3.671547 l .8 2022-09-08 2022-09-08 Outpatient [facility] [id number] Sentinel 00:00:00 00:00:[address] 2022-09-01 2022-09-01 Emergency Nuszen, 1.2.840.1 [id number] Methodi 09:34:00 10:43:00 Fran Herman. 06231.1.[address] 3.430.2.7 Hospit a .3.931850 l .8 2022-09-01 2022-09-01 Travel 1.2.840.1 1.2.639.422 [id number] Methodi 00:00:00 00:00:[address] 3.430.2.7 0.2.7.3.698 Ho spita .3.224472 084.8 l .8 2022-09-01 2022-09-01 Emergency [facility], [facility] [id number] [place] [id number] 00:00:00 00:00:00 FRAN [address] 2022-08-01 2022-08-01 Outpatient DMG [facility] [id number] Devoted 00:00:00 00:00:00 [id number] Medica l Group 2022-07-28 2022-07-28 Refill Harmouch, 1.2.840.1 [id number] Methodi 00:00:00 00:00:00 Griselda [place] [address].1.[address] 3.430.2.7 Hospit a .3.882040 l .8 2022-07-19 2022-07-19 Refill Harmouch, 1.2.840.1 [id number] [id number] Methodi 00:00:00 00:00:00 [address]isel[address] Ali [address]244.1.[address] 3.430.2.7 Hospit a .3.483726 l .8 2022-07-17 2022-07-17 Refill Harmouch, 1.2.840.1 [id number] Methodi 00:00:00 00:00:00 Griselda [place] [address]371.1.[address] 3.430.2.7 Hospit a .3.654071 l .8 2022-07-03 2022-07-03 Patient Porter, 1.2.840.1 [id number] Methodi 00:00:00 00:00:00 Outreach Indgio S [address]0743.1.[address] 3.430.2.7 Hospit a .3.865138 l .8 2022-07-03 2022-07-03 Patient Porter, 1.2.840.1 [id number] Methodi 00:00:00 00:00:00 Outreach Indigo Daniels [address]84.1.[address] 3.430.2.7 Hospit a .3.755665 l .8 2022-06-24 2022-06-24 Office [facility], 1.2.840.1 [id number] Methodi 12:30:00 12:30:00 Visit Octavio 23521.1.[address] Chad 3.430.2.7 Hospi ta .3.097295 l .8 2022-06-24 2022-06-24 Office [facility], 1.2.840.1 [id number] Methodi 12:30:00 12:30:00 Visit Octavio 66859.1.[address] Chad 3.430.2.7 Hospi ta .3.181200 l .8 2022-06-24 2022-06-24 Travel 1.2.840.1 1.2.580.679 [id number] Methodi 00:00:00 00:00:[address] 3.430.2.7 0.2.7.3.698 Ho spita .3.639282 084.8 l .8 2022-06-24 2022-06-24 Travel 1.2.840.1 1.2.775.639 [id number] [id number] Methodi 00:00:00 00:00:[address] 3.430.2.7 0.2.7.3.698 Ho spita .3.985546 084.8 l .8 2022-06-03 2022-06-03 Office [facility], 1.2.840.1 [id number] Methodi 12:15:00 12:15:00 Visit Octavio 72338.1.[address] Chad 3.430.2.7 Hospi ta .3.672476 l .8 2022-06-03 2022-06-03 [facility], 1.2.840.1 [id number] Methodi 12:15:00 12:15:00 Visit Octavio 23173.1.[address] Chad 3.430.2.7 Hospi ta .3.304516 l .8 2022-05-30 2022-05-30 [facility], 1.2.840.1 [id number] Methodi 16:06:34 23:59:00 Encounter Octavio 19870.1.[address] Chad 3.430.2.7 Hospi ta .3.507506 l .8 2022-05-30 2022-05-30 [facility], 1.2.840.1 [id number] Methodi 16:06:34 23:59:00 Encounter Octavio 41118.1.[address] Chad 3.430.2.7 Hospi ta .3.480846 l .8 2022-05-30 2022-05-30 Travel 1.2.840.1 1.2.387.868 [id number] Methodi 00:00:00 00:00:[address] 3.430.2.7 0.2.7.3.698 Ho spita .3.827980 084.8 l .8 2022-05-30 2022-05-30 Travel 1.2.840.1 1.2.704.478 4984 [id number] Methodi 00:00:00 00:00:[address] 3.430.2.7 0.2.7.3.698 Ho spita .3.104467 084.8 l .8 2022-05-27 2022-05-27 [facility], 1.2.840.1 [id number] Methodi 11:00:00 11:26:47 Visit Octavio 79946.1.[address] Chad 3.430.2.7 Hospi ta .3.169923 l .8 2022-05-27 2022-05-27 Office Deana, 1.2.840.1 [id number] Methodi 11:00:00 11:26:47 Visit Octavio 54779.1.[address] Chad 3.430.2.7 Hospi ta .3.832291 l .8 2022-05-27 2022-05-27 Outpatient [facility] [id number] Sentinel 00:00:00 00:00:00 OCTAVIO [address] 2022-05-27 2022-05-27 Outpatient [facility] [id number] Sentinel 00:00:00 00:00:[address]AV[address] 2022-05-26 2022-05-26 Orders Red, 1.2.840.1 [id number] Methodi 00:00:00 00:00:00 Only [place] [address]156.1.[address] 3.430.2.7 Hospit a .3.337974 l .8 2022-05-26 2022-05-26 Orders Red, 1.2.840.1 [id number] 7958 Methodi 00:00:00 00:00:00 Only [place] 79560.1.[address] 3.430.2.7 Hospit a .3.589980 l .8 2022-05-21 2022-05-21 Office Rojas, 1.2.840.1 [id number] 11129 60336 Methodi 11:15:00 11:15:00 Visit Cedric 88824.1.[address] [place] 3.430.2.7 Hospit a .3.329932 l .8 2022-05-21 2022-05-21 Office Anival, 1.2.840.1 [id number] 81850 43347 Methodi 11:15:00 11:15:00 Visit Cedric 32299.1.[address] [place] 3.430.2.7 Hospit a .3.824861 l .8 2022-05-21 2022-05-21 Travel 1.2.840.1 1.2.877.050 8352 [id number] Methodi 00:00:00 00:00:[address] 3.430.2.7 0.2.7.3.698 Ho spita .3.025808 084.8 l .8 2022-05-21 2022-05-21 Travel 1.2.840.1 1.2.170.205 7858 [id number] Methodi 00:00:00 00:00:[address] 3.430.2.7 0.2.7.3.698 Ho spita .3.905739 084.8 l .8 2022-05-06 2022-05-06 [facility], 1.2.840.1 [id number] Methodi 15:48:32 23:59:00 Encounter Griselda [place] 91652.1.[address] 3.430.2.7 Hospit a .3.768264 l .8 2022-05-06 2022-05-06 [facility], 1.2.840.1 [id number] Methodi 15:48:32 23:59:00 Encounter Griselda [place] 82292.1.[address] 3.430.2.7 Hospit a .3.976600 l .8 2022-05-06 2022-05-06 [facility] 1.2.840.1 [id number] 2099 [id number] Methodi 00:00:00 00:00:00 Only Griselda [place] [address]324.1.[address] 3.430.2.7 Hospit a .3.626700 l .8 2022-05-06 2022-05-06 Travel 1.2.840.1 1.2.824.173 0697 158371 Methodi 00:00:00 00:00:[address] 3.430.2.7 0.2.7.3.698 Ho spita .3.157595 084.8 l .8 2022-05-06 2022-05-06 Orders Harmouch, 1.2.840.1 [id number] 2099 614767 Methodi 00:00:00 00:00:00 Only Griselda [place] [address]956.1.[address] 3.430.2.7 Hospit a .3.873994 l .8 2022-05-06 2022-05-06 Travel 1.2.840.1 1.2.211.274 1853 122555 Methodi 00:00:00 00:00:[address] 3.430.2.7 0.2.7.3.698 Ho spita .3.419129 084.8 l .8 2022-04-26 2022-04-26 [facility], 1.2.840.1 [id number] 2099 051293 Methodi 00:00:00 00:00:00 Only Griselda [place] 71389.1.[address] 3.430.2.7 Hospit a .3.799443 l .8 2022-04-26 2022-04-26 Orders Harmou, 1.2.840.1 [id number] 2099 790960 Methodi 00:00:00 00:00:00 Only Griselda [place] [address]51.1.[address] 3.430.2.7 Hospit a .3.663479 l .8 2022-04-23 2022-04-23 Hospital [facility], 1.2.840.1 [id number] 706 [id number] Methodi 10:37:20 23:59:00 Encounter Grieslda [place] [address]79.1.[address] 3.430.2.7 Hospit a .3.693427 l .8 2022-04-23 2022-04-23 [facility], 1.2.840.1 [id number] 943 [id number] Methodi 10:37:20 23:59:00 Encounter Griselda [place] [address]64.1.[address] 3.430.2.7 Hospit a .3.745978 l .8 2022-04-23 2022-04-23 Travel 1.2.840.1 1.2.636.092 7468 593672 Methodi 00:00:00 00:00:[address] 3.430.2.7 0.2.7.3.698 Ho spita .3.415761 084.8 l .8 2022-04-23 2022-04-23 Office HARMOUCH, 1.2.840.1 [id number] 2099 294494 Sentinel 00:00:00 00:00:00 Visit GRISELDA 44763.1.[address] .3.534833 .8 2022-04-23 2022-04-23 Travel 1.2.840.1 1.2.808.284 0335 621850 Methodi 00:00:00 00:00:[address] 3.430.2.7 0.2.7.3.698 Ho spita .3.699065 084.8 l .8 2022-04-22 2022-04-22 Telephone Harm[facility], 1.2.840.1 [id number] 21 [id number] Methodi 00:00:00 00:00:00 Griselda [place] [address]202.1.[address] 3.430.2.7 Hospit a .3.493248 l .8 2022-04-22 2022-04-22 Telephone Harmouch, 1.2.840.1 [id number] 21 [id number] Methodi 00:00:00 00:00:00 Griselda [place] [address]47.1.[address] 3.430.2.7 Hospit a .3.382564 l .8 2022-04-21 2022-04-21 Orders Jaycob, 1.2.840.1 [id number] 286683 0859 Methodi 00:00:00 00:00:00 Only Krista 74089.1.[address] 3.430.2.7 Hospit a .3.710056 l .8 2022-04-21 2022-04-21 Telephone Harmouch, 1.2.840.1 [id number] 21 [id number] Methodi 00:00:00 00:00:00 Griselda [place] [address].1.[address] 3.430.2.7 Hospit a .3.841893 l .8 2022-04-21 2022-04-21 Orders Jaycob, 1.2.840.1 [id number] 476059 8567 Methodi 00:00:00 00:00:00 Only Krista 37515.1.[address] 3.430.2.7 Hospit a .3.782443 l .8 2022-04-21 2022-04-21 Telephone [facility]ouch, 1.2.840.1 [id number] 21 [id number] Methodi 00:00:00 00:00:00 Griselda [place] [address]15.1.[address] 3.430.2.7 Hospit a .3.542145 l .8 2022-04-08 2022-04-08 Office Harmouch, 1.2.840.1 [id number] 2099 552286 Methodi 08:20:00 08:50:09 Visit Griselda [place] [address]995.1.[address] 3.430.2.7 Hospit a .3.994283 l .8 2022-04-08 2022-04-08 Office Harmouch, 1.2.840.1 [id number] 2099 175248 Methodi 08:20:00 08:50:09 Visit Griselda [place] [address]646.1.[address] 3.430.2.7 Hospit a .3.089149 l .8 2022-04-07 2022-04-07 Telephone Harmouch, 1.2.840.1 [id number] 21 [id number] Methodi 00:00:00 00:00:00 Griselda [place] [address]22.1.[address] 3.430.2.7 Hospit a .3.571001 l .8 2022-04-07 2022-04-07 Telephone Harmouch, 1.2.840.1 [id number] 21 [id number] Methodi 00:00:00 00:00:00 Griselda [place] [address]26.1.[address] 3.430.2.7 Hospit a .3.335946 l .8 2022-03-04 2022-03-04 Outpatient DMG [facility] 288568- 00:00:00 00:00:00 [address] [facility] 2022-02-18 2022-02-18 Refill Harmouch, 1.2.840.1 [id number] 2099 331150 Methodi 00:00:00 00:00:00 Griselda [place] [address]5619.1.[address] 3.430.2.7 Hospit a .3.519110 l .8 2022-02-18 2022-02-18 Refill Harmouch, 1.2.840.1 468334949 2099288 Methodi 00:00:00 00:00:00 Griselda [place] [address].1.[address] 3.430.2.7 Hospit a .3.406064 l .8 2022-02-07 2022-02-07 Orders Vera, Yvrose 1.2.840.1 [id number] 417 [id number] Methodi 00:00:00 00:00:00 Only M [address]004.1.[address] 3.430.2.7 Hospit a .3.423827 l .8 2022-02-07 2022-02-07 Orders Vera, Yvrose 1.2.840.1 448183622 088 5681205 Methodi 00:00:00 00:00:00 Only M [address]81.1.[address] 3.430.2.7 Hospit a .3.659309 l .8 2022-01-27 2022-01-27 Telemedici Harmouch, 1.2.840.1 [id number] 2 [id number] Methodi 12:40:00 13:09:46 ne Griselda [place] [address]25.1.[address] 3.430.2.7 Hospit a .3.367989 l .8 2022-01-27 2022-01-27 Telemedici Harmouch, 1.2.840.1 486151357 2 [id number] Methodi 12:40:00 13:09:46 ne Griselda [place] 33028.1.[address] 3.430.2.7 Hospit a .3.474783 l .8 2021-12-31 2021-12-31 Refill Harmouch, 1.2.840.1 166881452 2099 749008 Methodi 00:00:00 00:00:00 Griselda [place] [address]208.1.[address] 3.430.2.7 Hospit a .3.498703 l .8 2021-12-31 2021-12-31 Refill Harmouch, 1.2.840.1 796821802 2099 059244 Methodi 00:00:00 00:00:00 Griselda [place] [address]4872.1.[address] 3.430.2.7 Hospit a .3.494316 l .8 2021-12-26 2021-12-26 Telephone Garcia, 1.2.840.1 [id number] 2099 497981 Methodi 00:00:00 00:00:00 Kathy Herman 46849.1.1 185 [address] t 3.430.2.7 Hospit a .3.570600 l .8 2021-12-26 2021-12-26 Telephone Garcia, 1.2.840.1 [id number] 2099 455857 Methodi 00:00:00 00:00:00 Kathy Herman 67456.1.1 185 s t 3.430.2.7 Hospit a .3.611049 l .8 2021-12-25 2021-12-25 Telephone Harling, 1.2.840.1 [id number] 499 [id number] Methodi 00:00:00 00:00:[address] 3.430.2.7 Hospit a .3.614696 l .8 2021-12-25 2021-12-25 Telephone Harling, 1.2.840.1 080160104 619 [id number] Methodi 00:00:00 00:00:[address] 3.430.2.7 Hospit a .3.438587 l .8 2021-12-15 2021-12-15 Refill Harmouch, 1.2.840.1 863373676 2099 644154 Methodi 00:00:00 00:00:00 Griselda [place] [address].1.[address] 3.430.2.7 Hospit a .3.577632 l .8 2021-12-15 2021-12-15 Refill Harmouch, 1.2.840.1 874131895 2099 576363 Methodi 00:00:00 00:00:00 Griselda [place] [address]62.1.[address] 3.430.2.7 Hospit a .3.050637 l .8 2021-12-10 2021-12-10 Telephone Harmouch, 1.2.840.1 594772568 [id number] Methodi 00:00:00 00:00:00 Griselda [place] 77735.1.[address] 3.430.2.7 Hospit a .3.945799 l .8 2021-12-10 2021-12-10 Telephone Harmouch, 1.2.840.1 [id number] 71663176 Methodi 00:00:00 00:00:00 Griselda [place] [address].1.[address] 3.430.2.7 Hospit a .3.451671 l .8 2021-12-09 2021-12-09 Orders Harmouch, 1.2.840.1 [id number] 2099 106482 Methodi 00:00:00 00:00:00 Only Griselda [place] [address]75.1.[address] 3.430.2.7 Hospit a .3.713273 l .8 2021-12-09 2021-12-09 Orders Harmouch, 1.2.840.1 398343665 2099 490662 Methodi 00:00:00 00:00:00 Only Griselda [place] [address]1465.1.[address] 3.430.2.7 Hospit a .3.636708 l .8 2021-12-06 2021-12-06 Hospital [facility], 1.2.840.1 [id number] 501 0778263 Methodi 12:36:43 23:59:00 Encounter Griselda Ali 69510.1.[address] 3.430.2.7 Hospit a .3.498197 l .8 2021-12-06 2021-12-06 [facility], 1.2.840.1 [id number] 556 8240780 Methodi 12:36:43 23:59:00 Encounter Griselda [place] [address]231.1.[address] 3.430.2.7 Hospit a .3.898585 l .8 2021-12-06 2021-12-06 Office Didi, 1.2.840.1 [id number] 2099933 Methodi 10:40:00 12:06:37 Visit Griselda [place] 84452.1.[address] 3.430.2.7 Hospit a .3.407177 l .8 2021-12-06 2021-12-06 Office Gurvinder, 1.2.840.1 8523741932099933 Methodi 10:40:00 12:06:37 Visit Griselda [place] [address]803.1.[address] 3.430.2.7 Hospit a .3.350812 l .8 2021-12-06 2021-12-06 Travel 1.2.840.1 1.2.733.871 4990 697760 Methodi 00:00:00 00:00:[address] 3.430.2.7 0.2.7.3.698 Ho spita .3.949969 084.8 l .8 2021-12-06 2021-12-06 Travel 1.2.840.1 1.2.509.434 9476 313755 Methodi 00:00:00 00:00:[address] 3.430.2.7 0.2.7.3.698 Ho spita .3.002930 084.8 l .8 2021-12-04 2021-12-04 Telephone Cris 1.2.840.1 [id number] 2099910 Methodi 00:00:00 00:00:00 Renika T [address].1.[address] 3.430.2.7 Hospit a .3.079643 l .8 2021-12-04 2021-12-04 Telephone Cris 1.2.840.1 [id number] Methodi 00:00:00 00:00:00 Renika T [address]658.1.[address] 3.430.2.7 Hospit a .3.445712 l .8 2021-12-03 2021-12-03 Travel 1.2.840.1 1.2.763.063 8496 936771 Methodi 00:00:00 00:00:[address] 3.430.2.7 0.2.7.3.698 Ho spita .3.175436 084.8 l .8 2021-12-03 2021-12-03 Travel 1.2.840.1 1.2.641.665 9917 531861 Methodi 00:00:00 00:00:[address] 3.430.2.7 0.2.7.3.698 Ho spita .3.141582 084.8 l .8 2021-11-25 2021-11-25 Telemedici Harmouch, 1.2.840.1 [id number] 2 [id number] Methodi 11:00:00 11:13:23 ne Griselda [place] 45469.1.[address] 3.430.2.7 Hospit a .3.220092 l .8 2021-11-25 2021-11-25 Telemedici Harmouch, 1.2.840.1 [id number] 2 [id number] Methodi 11:00:00 11:13:23 ne Griselda [place] [address]643.1.[address] 3.430.2.7 Hospit a .3.296328 l .8 2021-11-24 2021-11-24 Emergency nullFlavo [facility] 79118 53483 Memoria 05:13:43 08:25:00 ada Power [facility] 2021-11-24 2021-11-24 Emergency [facility]Flavo [facility] 22834 34472 Memoria 05:13:43 08:25:00 ada Power [facility] 2021-11-24 2021-11-24 Outpatient LIZZIE HernandezPL 41332 49644 00:13:43 03:25:00 Lourdes Gallagher 2021-11-24 2021-11-24 Emergency E NINA HERNANDEZ [facility]BL 7503 MHBL 00:13:00 03:25:00 LOURDES 2021-11-16 2021-11-16 Refill Harmouch, 1.2.840.1 [id number] 2099 [id number] Methodi 00:00:00 00:00:00 Griselda [place] 80765.1.[address] 3.430.2.7 Hospit a .3.123390 l .8 2021-10-25 2021-10-25 Orders Harmouch, 1.2.840.1 [id number] 2099 048780 Methodi 00:00:00 00:00:00 Only Griselda [place] 82291.1.[address] 3.430.2.7 Hospit a .3.076032 l .8 2021-10-22 2021-10-22 Office Harmouch, 1.2.840.1 [id number] 2099 382224 Methodi 14:20:00 15:26:26 Visit Griselda [place] 37738.1.[address] 3.430.2.7 Hospit a .3.761655 l .8 2021-10-22 2021-10-22 Travel 1.2.840.1 1.2.670.963 6075 095119 Methodi 00:00:00 00:00:[address] 3.430.2.7 0.2.7.3.698 Ho spita .3.219707 084.8 l .8 2021-10-21 2021-10-21 Refill Harmouch, 1.2.840.1 [id number] 2099 787666 Methodi 00:00:00 00:00:00 Griselda [place] 71025.1.[address] 3.430.2.7 Hospit a .3.909920 l .8 2021-10-09 2021-10-09 Outpatient [facility] 72 [place] 11:31:00 11:31:00 0713 da [facility] 2021-09-03 2021-09-03 Telephone Mikael, 1.2.840.1 [id number] 2099 878863 Methodi 00:00:00 00:00:[address] 3.430.2.7 Hospit a .3.127512 l .8 2021-08-30 2021-08-30 [facility], 1.2.840.1 [id number] 2099 923225 Methodi 00:00:00 00:00:00 Griselda [place] [address]859.1.[address] 3.430.2.7 Hospit a .3.408680 l .8 2021-08-27 2021-08-27 [facility], 1.2.840.1 [id number] 215 [id number] Methodi 12:25:00 23:59:00 Encounter Griselda [place] 83754.1.[address] 3.430.2.7 Hospit a .3.532206 l .8 2021-08-27 2021-08-27 [facility], 1.2.840.1 [id number] 391 0866002 Methodi 12:01:41 12:24:00 Encounter Griselda [place] 45422.1.[address] 3.430.2.7 Hospit a .3.048842 l .8 2021-08-27 2021-08-27 Telephone Rafael, 1.2.840.1 [id number] 2 [id number] Methodi 00:00:00 00:00:[address] 3.430.2.7 Hospit a .3.647743 l .8 2021-08-27 2021-08-27 Travel 1.2.840.1 1.2.707.494 9528 167953 Methodi 00:00:00 00:00:[address] 3.430.2.7 0.2.7.3.698 Ho spita .3.768331 084.8 l .8 2021-08-20 2021-08-20 [facility], 1.2.840.1 [id number] 822 7830605 Methodi 10:23:53 23:59:00 Encounter Griselda [place] [address]4722.1.[address] 3.430.2.7 Hospit a .3.002624 l .8 2021-08-20 2021-08-20 [facility], 1.2.840.1 [id number] 528 8439201 Methodi 10:23:15 23:59:00 Encounter Griselda [place] [address]2710.1.[address] 3.430.2.7 Hospit a .3.081207 l .8 2021-08-20 2021-08-20 Telephone Youssef, 1.2.840.1 [id number] 2099 659138 Methodi 00:00:00 00:00:[address] 3.430.2.7 Hospit a .3.913262 l .8 2021-08-20 2021-08-20 Travel 1.2.840.1 1.2.248.278 3036 584205 Methodi 00:00:00 00:00:[address] 3.430.2.7 0.2.7.3.698 Ho spita .3.961976 084.8 l .8 2021-08-15 2021-08-15 Travel 1.2.840.1 1.2.075.190 2885 356836 Methodi 00:00:00 00:00:[address] 3.430.2.7 0.2.7.3.698 Ho spita .3.773784 084.8 l .8 2021-08-15 2021-08-15 Refill [facility], 1.2.840.1 [id number] 2099 406918 Methodi 00:00:00 00:00:00 Griselda [place] [address]2220.1.[address] 3.430.2.7 Hospit a .3.615239 l .8 2021-08-02 2021-08-02 [facility], 1.2.840.1 [id number] 2099 519200 Methodi 00:00:00 00:00:00 Only Griselda [place] 13764.1.[address] 3.430.2.7 Hospit a .3.815347 l .8 2021-08-01 2021-08-01 [facility] 55839 83144 Sentinel 00:00:00 00:00:00 GRISELDA Kennedy [facility] 2021-07-31 2021-07-31 Refill [facility], 1.2.840.1 [id number] 2099 186046 Methodi 00:00:00 00:00:00 Griselda [place] [address].1.[address] 3.430.2.7 Hospit a .3.221683 l .8 2021-07-19 2021-07-19 [facility], 1.2.840.1 [id number] 2099694 Methodi 00:00:00 00:00:00 Only Griselda [place] [address]34.1.[address] 3.430.2.7 Hospit a .3.380736 l .8 2021-07-16 2021-07-16 [facility], 1.2.840.1 [id number] 373 1774175 Methodi 14:30:00 23:59:00 Encounter Griselda [place] [address]247.1.[address] 3.430.2.7 Hospit a .3.843604 l .8 2021-07-16 2021-07-16 Travel 1.2.840.1 1.2.711.954 9295 899478 Methodi 00:00:00 00:00:[address] 3.430.2.7 0.2.7.3.698 spita .3.610682 084.8 l .8 2021-07-02 2021-07-02 Office [facility], 1.2.840.1 [id number] 2099 033651 Methodi 08:40:00 10:03:29 Visit Griselda [place] [address]26.1.[address] 3.430.2.7 Hospit a .3.785078 l .8 2021-07-02 2021-07-02 Refill Hines, 1.2.840.1 [id number] Methodi 00:00:00 00:00:[address] 3.430.2.7 Hospit a .3.639506 l .8 2021-06-03 2021-06-03 Office Rojas, 1.2.840.1 [id number] Methodi 14:00:00 14:25:53 Visit Cedric 74266.1.[address] Yovani 3.430.2.7 Hospit a .3.115272 l .8 2021-06-03 2021-06-03 Outpatient ROJAS, [facility] [id number] 7028 Sentinel 00:00:00 00:00:00 CEDRIC [address] 2021-06-03 2021-06-03 Outpatient ROJAS, [facility] [id number] 8944 Sentinel 00:00:00 00:00:00 CEDRIC [address] 2021-06-03 2021-06-03 Orders Sunil, 1.2.840.1 [id number] 2099528 Methodi 00:00:00 00:00:00 Only Heri 36606.1.[address] 3.430.2.7 Hospit a .3.523176 l .8 2021-06-03 2021-06-03 Travel 1.2.840.1 1.2.810.727 4983 214410 Methodi 00:00:00 00:00:[address] 3.430.2.7 0.2.7.3.698 Ho spita .3.944132 084.8 l .8 2021-06-03 2021-06-03 Orders Sunil, 1.2.840.1 [id number] 2099476 Methodi 00:00:00 00:00:00 Only Heri 31626.1.[address] 3.430.2.7 Hospit a .3.237006 l .8 2021-05-28 2021-05-28 Emergency nullFlavo [facility] 3773 979667 Memoria 00:17:43 04:08:00 [facility] 02 l ([facility]) Rodney 2021-05-28 2021-05-28 Emergency nullFlavo [facility] 3773 635862 Memoria 00:17:43 [facility] Rodney 2021-05-27 2021-05-27 Outpatient MODESTO RogersSE MHSE [id number] 375 18:17:43 22:08:00 Jerry Majano Phillip-Yazan 2021-05-27 2021-05-27 Emergency E KEN, SE MHSE 7502 MH 18:17:00 22:08:00 [facility] 2021-05-24 2021-05-24 Orders Leung, 1.2.840.1 [id number] Methodi 00:00:00 00:00:00 Only Imani [address]5563.1.[address] 3.430.2.7 Hospit a .3.026229 l .8 2021-05-22 2021-05-22 Office Didi, 1.2.840.1 [id number] 2100 493742 Methodi 12:20:00 13:12:35 Visit Griselda [place] [address]841.1.[address] 3.430.2.7 Hospit a .3.561560 l .8 2021-05-22 2021-05-22 Travel 1.2.840.1 1.2.280.501 4560 451413 Methodi 00:00:00 00:00:[address] 3.430.2.7 0.2.7.3.698 Ho spita .3.359636 084.8 l .8 2021-04-19 2021-04-19 Telephone Graham, 1.2.840.1 [id number] 2 [id number] Methodi 00:00:00 00:00:[address] 3.430.2.7 Hospit a .3.861808 l .8 2021-04-16 2021-04-16 Office Harmmelissa, 1.2.840.1 [id number] 2100 985911 Methodi 10:40:00 11:41:16 Visit Griselda [place] [address]36.1.[address] 3.430.2.7 Hospit a .3.068438 l .8 2021-04-16 2021-04-16 Refill Didi, 1.2.840.1 [id number] 2100 242702 Methodi 00:00:00 00:00:00 Griselda Ali [address]85.1.[address] 3.430.2.7 Hospit a .3.308339 l .8 2021-04-16 2021-04-16 Travel 1.2.840.1 1.2.805.431 6628 973512 Methodi 00:00:00 00:00:[address] 3.430.2.7 0.2.7.3.698 Ho spita .3.280559 084.8 l .8 2021-04-08 2021-04-08 Travel 1.2.840.1 1.2.526.290 0704 838310 Methodi 00:00:00 00:00:[address] 3.430.2.7 0.2.7.3.698 Ho spita .3.541595 084.8 l .8 2021-01-18 2021-01-18 [facility], 1.2.840.1 [id number] 2099352 Methodi 00:00:00 00:00:00 Only Griselda Ali 93379.1.[address] 3.430.2.7 Hospit a .3.049157 l .8 2021-01-18 2021-01-18 Refill [facility], 1.2.840.1 [id number] 2099352 Methodi 00:00:00 00:00:00 Griselda Ali [address]54.1.[address] 3.430.2.7 Hospit a .3.292454 l .8 2021-01-17 2021-01-17 [facility], 1.2.840.1 [id number] 599 [id number] Methodi 12:13:55 23:59:00 Encounter Griselda Ali 41006.1.[address] 3.430.2.7 Hospit a .3.604995 l .8 2021-01-17 2021-01-17 [facility], 1.2.840.1 [id number] 992 0824301 Methodi 12:13:53 23:59:00 Encounter Griselda Ali 96119.1.[address] 3.430.2.7 Hospit a .3.081322 l .8 2021-01-17 2021-01-17 [facility], 1.2.840.1 [id number] 065 [id number] Methodi 12:13:41 23:59:00 Encounter Griselda Ali 51549.1.[address] 3.430.2.7 Hospit a .3.543364 l .8 2021-01-17 2021-01-17 [facility], 1.2.840.1 [id number] 459 [id number] Methodi 12:12:15 12:12:15 Encounter Griselda Ali 07477.1.[address] 3.430.2.7 Hospit a .3.836375 l .8 2021-01-17 2021-01-17 [facility], 1.2.840.1 [id number] 324 [id number] Methodi 12:12:13 12:12:13 Encounter Griselda Ali [address]92.1.[address] 3.430.2.7 Hospit a .3.700164 l .8 2021-01-17 2021-01-17 [facility], 1.2.840.1 [id number] 995 [id number] Methodi 12:11:51 12:11:51 Encounter Griselda Ali 57953.1.[address] 3.430.2.7 Hospit a .3.998109 l .8 2021-01-17 2021-01-17 [facility], 1.2.840.1 [id number] 2100 246081 Methodi 00:00:00 00:00:00 Only Griselda [place] [address]11.1.[address] 3.430.2.7 Hospit a .3.030142 l .8 2021-01-03 2021-01-03 [facility], 1.2.840.1 [id number] 602 [id number] Methodi 10:28:09 23:59:00 Encounter Griselda Ali 51857.1.[address] 3.430.2.7 Hospit a .3.385739 l .8 2021-01-03 2021-01-03 [facility], 1.2.840.1 [id number] Methodi 10:27:49 10:27:49 Encounter Griselda [place] [address]121.1.[address] 3.430.2.7 Hospit a .3.199239 l .8 2021-01-03 2021-01-03 Travel 1.2.840.1 1.2.557.681 5421 360293 Methodi 00:00:00 00:00:[address] 3.430.2.7 0.2.7.3.698 Ho spita .3.094431 084.8 l .8 2021-01-01 2021-01-01 Clinical 1.2.840.1 [id number] 54862 57651 Methodi 10:35:00 11:24:[address] 3.430.2.7 Hospit a .3.672342 l .8 2021-01-01 2021-01-01 Telephone [facility], 1.2.840.1 [id number] Methodi 00:00:00 00:00:00 [place] [address].1.[address] 3.430.2.7 Hospit a .3.366751 l .8 2021-01-01 2021-01-01 Travel 1.2.840.1 1.2.918.660 1861 [id number] Methodi 00:00:00 00:00:[address] 3.430.2.7 0.2.7.3.698 Ho spita .3.785194 084.8 l .8 2020-12-21 2020-12-21 Office [facility], 1.2.840.1 [id number] 2099 [id number] Methodi 11:40:00 13:29:19 Visit Griselda [place] 77168.1.[address] 3.430.2.7 Hospit a .3.877786 l .8 2020-12-21 2020-12-21 Travel 1.2.840.1 1.2.702.006 8693 560353 Methodi 00:00:00 00:00:[address] 3.430.2.7 0.2.7.3.698 Ho spita .3.381216 084.8 l .8 2020-11-19 2020-11-19 Refill [place], 1.2.840.1 [id number] 2100 895243 Methodi 00:00:00 00:00:00 [place] [address]22.1.[address] 3.430.2.7 Hospit a .3.080603 l .8 2020-11-19 2020-11-19 Travel 1.2.840.1 1.2.201.989 9958 713176 Methodi 00:00:00 00:00:[address] 3.430.2.7 0.2.7.3.698 Ho spita .3.701628 084.8 l .8 2020-11-19 2020-11-19 Refill [facility], 1.2.840.1 [id number] 2100 660519 Methodi 00:00:00 00:00:00 [place] [address]341.1.[address] 3.430.2.7 Hospit a .3.304153 l .8 2020-11-14 2020-11-14 Orders [facility], 1.2.840.1 [id number] 2100 800745 Methodi 00:00:00 00:00:00 Only Griselda [place] [address]35.1.[address] 3.430.2.7 Hospit a .3.934754 l .8 2020-11-14 2020-11-14 Telephone [place], 1.2.840.1 [id number] 2100 910267 Methodi 00:00:00 00:00:00 Cyndi Caballero 54846.1.1 [address] 3.430.2.7 Hospit a .3.613217 l .8 2020-10-18 2020-10-18 Travel 1.2.840.1 1.2.937.314 4919 267166 Methodi 00:00:00 00:00:[address] 3.430.2.7 0.2.7.3.698 Ho spita .3.452632 084.8 l .8 2020-09-27 2020-09-27 Outpatient Ziggy [facility] [address] [place] 10:14:00 10:14:00 0701 [facility] 2020-08-31 2020-08-31 Office Didi, 1.2.840.1 [id number] Methodi 09:17:36 10:24:00 Visit Griselda [place] [address]8760.1.[address] 3.430.2.7 Hospit a .3.855699 l .8 2020-08-31 2020-08-31 Travel 1.2.840.1 1.2.333.661 6054 770730 Methodi 00:00:00 00:00:[address] 3.430.2.7 0.2.7.3.698 Ho spita .3.184046 084.8 l .8 2020-08-14 2020-08-14 Travel 1.2.840.1 1.2.396.247 9781 015225 Methodi 00:00:00 00:00:[address] 3.430.2.7 0.2.7.3.698 Ho spita .3.628725 084.8 l .8 2020-08-08 2020-08-08 Travel 1.2.840.1 1.2.310.138 6601 130354 Methodi 00:00:00 00:00:[address] 3.430.2.7 0.2.7.3.698 Ho spita .3.650659 084.8 l .8 2020-07-26 2020-07-26 Refill Didi, 1.2.840.1 [id number] 2099 119527 Methodi 00:00:00 00:00:00 [place] [address]78.1.[address] 3.430.2.7 Hospit a .3.092722 l .8 2020-07-23 2020-07-23 Telephone Imtiaz, 1.2.840.1 [id number] 887 [id number] Methodi 00:00:00 00:00:[address] 3.430.2.7 Hospit a .3.928096 l .8 2020-07-23 2020-07-23 Travel 1.2.840.1 1.2.453.253 0908 322305 Methodi 00:00:00 00:00:[address] 3.430.2.7 0.2.7.3.698 Ho spita .3.901230 084.8 l .8 2020-07-23 2020-07-23 Telephone Oh, 1.2.840.1 [id number] 2099 127833 Methodi 00:00:00 00:00:[address] 3.430.2.7 Hospit a .3.869210 l .8 2020-07-17 2020-07-17 Telephone Didi, 1.2.840.1 [id number] Methodi 00:00:00 00:00:00 [place] [address]0910.1.[address] 3.430.2.7 Hospit a .3.339257 l .8 2020-07-17 2020-07-17 Travel 1.2.840.1 1.2.571.575 3724 889512 Methodi 00:00:00 00:00:[address] 3.430.2.7 0.2.7.3.698 Ho spita .3.864189 084.8 l .8 2020-07-10 2020-07-10 Travel 1.2.840.1 1.2.622.275 6129 383684 Methodi 00:00:00 00:00:[address] 3.430.2.7 0.2.7.3.698 Ho spita .3.651195 084.8 l .8 2020-07-09 2020-07-09 Orders [facility], 1.2.840.1 [id number] Methodi 00:00:00 00:00:00 Only Griselda [place] 01618.1.[address] 3.430.2.7 Hospit a .3.554044 l .8 2020-07-02 2020-07-02 Office [facility], 1.2.840.1 [id number] Methodi 08:44:43 10:02:54 Visit Griselda [place] 79596.1.[address] 3.430.2.7 Hospit a .3.556577 l .8 2020-07-02 2020-07-02 Telephone [place], 1.2.840.1 [id number] 2099 117630 Methodi 00:00:00 00:00:00 Cyndi Caballero 25739.1.1 708 [address] t 3.430.2.7 Hospit a .3.531361 l .8 2020-07-02 2020-07-02 Travel 1.2.840.1 1.2.295.894 1470 333940 Methodi 00:00:00 00:00:[address] 3.430.2.7 0.2.7.3.698 Ho spita .3.910973 084.8 l .8 2020-06-15 2020-06-15 Telephone [facility], 1.2.840.1 [id number] Methodi 00:00:00 00:00:00 [place]da [place] [address]190.1.[address] 3.430.2.7 Hospit a .3.952072 l .8 2020-05-02 2020-05-02 Orders [facility], 1.2.840.1 [id number] Methodi 00:00:00 00:00:00 Only Griselda [place] [address]843.1.[address] 3.430.2.7 Hospit a .3.846980 l .8 2020-04-27 2020-04-27 Outpatient HARMOUCH, [facility] 66621 48050 [facility] 00:00:00 00:00:00 MANAR [address] 2020-04-27 2020-04-27 Outpatient HARMOUCH, [facility] 21123 28685 Sentinel 00:00:00 00:00:00 MANAR [address] 2020-04-27 2020-04-27 Outpatient GARCIA, [facility] 869 [id number] Sentinel 00:00:00 00:00:[address] 2020-02-07 2020-02-07 Outpatient HARMOUCH, [facility] 70273 00154 Sentinel 00:00:00 00:00:00 MANAR 981 [facility] 2020-01-24 2020-01-24 Outpatient [facility] [id number] [place] 00:00:00 00:00:[address] 2020-01-19 2020-01-19 Outpatient ABREU, [facility] [id number] [place] 00:00:00 00:00:00 HEIDI [address] 2020-01-19 2020-01-19 Outpatient ABREU, [facility] [id number] [place] 00:00:00 00:00:00 HEIDI [address] 2020-01-19 2020-01-19 Outpatient ABREU, [facility] [id number] [place] 00:00:00 00:00:00 HEIDI [address] 2020-01-19 2020-01-19 Outpatient ABREU, [facility] [id number] [place] 00:00:00 00:00:00 HEIDI [address] 2019-12-29 2019-12-29 Outpatient HARMOUCH, [facility] [id number] [place] 00:00:00 00:00:00 MANAR [address] 2019-12-16 2019-12-16 Outpatient ZAHIRUDDIN, [facility] [id number] [place] 00:00:00 00:00:00 KAMERON [address] 2019-12-14 2019-12-14 Outpatient [facility] [id number] [place] 00:00:00 00:00:[address] 2019-11-16 2019-11-16 Outpatient HARMOUCH, [facility] [id number] [place] 00:00:00 00:00:00 MANAR [address] 2019-11-07 2019-11-07 Outpatient HARMOUCH, [facility] [id number] [place] 00:00:00 00:00:00 MANAR [address] 2019-11-03 2019-11-03 Outpatient COH CO[facility] PDPFDRS [facility]KM CO[facility] 00:00:00 00:00:00 [id number] 2019-11-01 Outpatient ZAHIRUDDIN, [facility] [id number] [place] 00:00:00 00:00:00 KAMERON [address] 2019-10-04 2019-10-04 Outpatient HARMOUCH, [facility] [id number] [place] 00:00:00 00:00:00 MANAR [address] 2019-09-28 2019-09-28 Outpatient HARMOUCH, [facility] [id number] [place] 00:00:00 00:00:00 MANAR [address] 2019-09-23 2019-09-23 Outpatient HARMOUCH, [facility] [id number] [place] 00:00:00 00:00:00 MANAR [address] 2019-09-21 2019-09-21 Outpatient HARMOUCH, [facility] [id number] [place] 00:00:00 00:00:00 MANAR [address] 2019-09-20 2019-09-20 Outpatient ZAHIRUDDIN, [facility] [id number] [place] 00:00:00 00:00:00 KAMERON [address] 2019-09-16 2019-09-16 Outpatient HARMOUCH, [facility] [id number] [place] 00:00:00 00:00:00 MANAR [address] 2019-09-15 2019-09-15 Outpatient Zuniga_F [facility] [id number] [place] 12:55:00 12:55:00 [facility] 2019-09-14 2019-09-14 Outpatient Zuniga_F [facility] [id number] [place] 10:21:00 10:21:00 [facility] 2019-09-14 2019-09-14 Outpatient ZAHIRUDDIN, [facility] [id number] [place] 00:00:00 00:00:00 KMAERON [address] 2019-09-14 2019-09-14 Outpatient [facility] [id number] [place] 00:00:00 00:00:[address] 2019-09-12 2019-09-12 Outpatient HARMOUCH, [facility] [id number] [place] 00:00:00 00:00:00 MANAR [address] 2019-09-09 2019-09-09 Outpatient HARMOUCH, [facility] [id number] [place] 00:00:00 00:00:00 MANAR [address] 2019-09-06 2019-09-06 Outpatient HARMOUCH, [facility] [id number] [place] 00:00:00 00:00:00 MANAR [address] 2019-09-06 2019-09-06 Outpatient HARMOUCH, [facility] [id number] [place] 00:00:00 00:00:00 MANAR [address] 2019-09-06 2019-09-06 Outpatient HARMOUCH, [facility] [id number] [place] 00:00:00 00:00:00 MANAR [address] 2019-09-02 2019-09-02 Outpatient HARMOUCH, [facility] [id number] [place] 00:00:00 00:00:00 MANAR [address] 2019-08-26 2019-08-26 Outpatient HARMOUCH, [facility] [id number] [place] 00:00:00 00:00:00 MANAR [address] 2019-08-24 2019-08-24 Outpatient HARMOUCH, [facility] [id number] [place] 00:00:00 00:00:00 MANAR [address] 2019-08-24 2019-08-24 Outpatient HARMOUCH, [facility] [id number] [place] 00:00:00 00:00:00 MANAR [address] 2019-08-24 2019-08-24 Outpatient HARMOUCH, [facility] [id number] [place] 00:00:00 00:00:00 MANAR [address] 2019-08-18 2019-08-18 Outpatient HARMOUCH, [facility] [id number] [place] 00:00:00 00:00:00 MANAR [address] 2019-08-10 2019-08-12 Inpatient MCCARTAN, [facility] [id number] [place] 00:00:00 00:00:00 TABBY [address] 2019-07-17 2019-08-10 Inpatient HCAMN SHAVON [id number] [facility] 03:46:00 09:13:20 81 [facility] 2019-08-04 2019-08-05 Inpatient NOOR, [facility] [id number] [place] 00:00:00 00:00:00 EULALIA [address] 2019-07-23 2019-08-04 Inpatient SIVANYOSVANY LEWIS [facility] [id number] [id number] [place] 00:00:00 00:00:[address] 2019-07-11 2019-07-11 Outpatient HARMOUCH, [facility] [id number] [place] 00:00:00 00:00:00 MANAR [address] 2019-07-11 2019-07-11 Outpatient HARMOUCH, [facility] [id number] [place] 00:00:00 00:00:00 MANAR [address] 2019-06-14 2019-06-14 Outpatient HARMOUCH, [facility] [id number] [place] 00:00:00 00:00:00 MANAR [address] 2019-05-18 2019-05-18 Outpatient Ajibade_O_A VFP VFP [id number] [facility] 07:18:00 07:18:00 H [id number] Family Practic e 2019-05-03 2019-05-03 Outpatient HARMOUCH, [facility] [id number] [place] 00:00:00 00:00:00 MANAR [address] 2019-04-21 2019-04-21 Outpatient HARMOUCH, [facility] [id number] [place] 00:00:00 00:00:00 MANAR [address] 2019-04-09 2019-04-09 Emergency nullFlavo [facility] [id number] Memoria 21:48:13 23:39:00 [facility] 01 l ([facility]) [place] 2019-04-09 2019-04-09 Emergency [facility]Flavo [facility] [id number] Memoria 21:48:13 23:39:00 [facility]-ED 01 l ([facility]) [place] 2019-04-09 2019-04-09 Outpatient Altagracia, MHSE MHSE [id number] 15:48:13 17:39:00 Abrahan 2019-02-10 2019-02-11 Outpt Diag nullFlavo [facility] [id number] Memoria 18:20:00 05:59:00 Services r Outpatient 05 l [facility] 2019-02-10 2019-02-11 Outpt Diag nullFlavo [facility] [id number] Memoria 18:20:00 05:59:00 Services r Outpatient 05 l [facility] 2019-02-10 2019-02-10 Outpatient Kaleigh, MHOIP OIP [id number] 12:20:00 23:59:00 Jawdat [facility] 2018-08-24 2018-10-06 NURSE [facility]Fl[facility] [id number] Memoria 14:39:12 18:19:06 NAVIGATOR [facility] 2018-08-24 2018-10-06 [facility] [id number] Memoria 14:39:12 18:19:06 NAVIGATOR [facility] 2018-08-24 2018-10-06 Outpatient MHPL MHPL [id number] 09:39:12 13:19:06 2018-08-27 2018-08-28 Outpt Diag nullFlavo [facility] [id number] Memoria 13:22:00 04:59:00 Services r Outpatient 04 l [facility] 2018-08-27 2018-08-28 Outpt Diag nullFlavo [facility] [id number] Memoria 13:22:00 04:59:00 Services r Outpatient 04 l [facility] 2018-08-27 2018-08-27 Outpatient Opalouch, M[facility]IP OIP [id number] 08:22:00 23:59:00 Griselda [facility] 2018-08-26 2018-08-27 Outpt Diag nullFlavo [facility] [id number] Memoria 16:38:00 04:59:00 Services r Outpatient 03 l [facility] 2018-08-26 2018-08-27 Outpt Diag nullFlavo [facility] [id number] Memoria 16:38:00 04:59:00 Services r Outpatient 03 l [facility] 2018-08-26 2018-08-26 Outpatient Harmouch, M[facility]IP OIP [id number] 11:38:00 23:59:00 Griselda [place] 2018-08-03 2018-08-04 Outpt Diag nullFlavo [facility] [id number] Memoria 18:22:00 04:59:00 Services r Outpatient 02 l Imaging [facility] 2018-08-03 2018-08-04 Outpt Diag nullFlavo [facility] [id number] Memoria 18:22:00 04:59:00 Services r Outpatient 02 [facility] 2018-08-03 2018-08-03 Outpatient Harmouch, MHOIP OIP [id number] 13:22:00 23:59:00 Griselda [place] 2018-07-07 2018-07-08 Outpt Diag nullFlavo [facility] [id number] Memoria 15:16:00 04:59:00 Services r Outpatient 01 [facility] 2018-07-07 2018-07-08 Outpt Diag nullFlavo [facility] [id number] Memoria 15:16:00 04:59:00 Services r Outpatient 01 [facility] 2018-07-07 2018-07-07 Outpatient Harmouch, M[facility]IP OIP [id number] 10:16:00 23:59:00 Griselda [place] 2015-10-13 2015-10-16 Inpatient [facility]Fl[facility] [id number] Memoria 08:46:00 20:50:[address] 2015-10-13 2015-10-16 Inpatient [facility]Flavo [facility] [id number] Memoria 08:46:00 20:50:[address] 2015-10-13 2015-10-16 Outpatient Luis Angel [facility] [id number] 03:46:00 15:50:00 Beatamalina Sanchez 2015-10-13 2015-10-13 nullFlavo [facility] [id number] Memoria 03:57:00 08:39:00 Emergency r [address] 2015-10-13 2015-10-13 [facility] [id number] Memoria 03:57:00 08:39:00 Emergency r [place] 00 l [facility] 2015-10-12 2015-10-13 Outpatient LIZZIE Dockery MADALYN [id number] 22:57:00 03:39:00 Samar 00 Results Test Description Test Time Test Comments Results Result Comments Source ECG 12 lead 2022-09-02 01:30:49 Test Item Value Reference Range Interpretation Comme nts Ventricular rate (test code = 253) 61 Atrial rate (test code = 255) 61 [place] interval (test code = 266) 176 QRSD interval (test code = 260) 94 QT interval (test code = 264) 406 QTC interval (test code = 265) 408 P axis 1 (test code = 267) 62 QRS axis 1 (test code = 268) -1 T wave axis (test code = 270) -15 EKG impression (test code = 273) Normal sinus rhythm-Nonspecific T wave abnormality-Abnormal ECG-In automated comparison with ECG of 24-AUG-2019 15:38,-Vent. rate has decreased BY 44 LKP-Gld-acbdbevj change in ST segment in Inferior leads-Nonspecific T wave abnormality now evident in Inferior leads-Nonspecific T wave abnormality now evident in Anterior leads- [facility] [id number] 00:39:00 Test Item Value Reference Range Interpretation Comments POC creatinine (test 0.7 mg/dl 0.5-0.9 Operato r Name: Sravanthi code = 34887-1) Kenney e ID: [id number] [facility] [id number] 00:39:00 Test Item Value Reference Range Interpretation Comments Estimated GFR (test 88 mL/min/1.73 m2 Caterg ory Units code = 5488) InterpretationG 1 >=90 Normal or highG 2 60-89 Mildly decrease dG3a 45-59 Mildly to moder ately rcahleznaA5t 30 -44 Moderately to s everely decreasedG4 15- 29 Severely decreasedG5 <15 Kidney failureThe eGFR was calculated balta malik the Chronic Kidney Disease Epidemiology Co llaboration (CKD-EPI) equat ion. Interpretation is based on recommendations of the National Kidney Foundation-Kidn ey Disease Outcomes Qualit y Initiative (NKF-KDOQI) pub lished in 2013. [facility] [id number] 00:39:00 Test Item Value Reference Range Interpretation Comments POC creatinine (test 0.7 mg/dl 0.5-0.9 Operato r Name: Sravanthi code = 77417-9) Kenney e ID: [id number] [facility] and microscopy, with reflex to culture 2022-04-25 11:47:00 Test Item Value Reference Range Interpretation Comments Color, UA (test code YELLOW YELLOW = 5778-6) Appearance (test CLEAR CLEAR code = 5767-9) Specific gravity, 1.021 1.001-1.035 urine (test code = 5811-5) pH, urine (test code 6.5 5.0-8.0 = 5803-2) Glucose, urine (test NEGATIVE NEGATIVE code = 56463-1) Bilirubin, UA (test NEGATIVE NEGATIVE code = 5770-3) Ketones, UA (test NEGATIVE NEGATIVE code = 2514-8) Occult blood, urine NEGATIVE NEGATIVE (test code = 5794-3) Protein, UA (test NEGATIVE NEGATIVE code = 51404-7) Nitrite, UA (test NEGATIVE NEGATIVE code = 5802-4) Leukocyte esterase, 2+ NEGATIVE A UA (test code = 5799-2) WBC, UA (test code = 10-20 See_Comment A [Autom ated 5821-4) message] The system which generated this result transmitted reference range : < OR = 5 /HPF. The reference range was not used to interpr et this result as normal/abnormal . RBC, UA (test code = NONE SEEN See_Comment [Autom ated 47488-8) message] The system which generated this result transmitted reference range : < OR = 2 /HPF. The reference range was not used to interpr et this result as normal/abnormal . Squamous epithelial 0-5 See_Comment [Automa shaun cells, UA (test code message ] The = 83516-9) system which generated this result transmitted reference range : < OR = 5 /HPF. The reference range was not used to interpr et this result as normal/abnormal . Bacteria, UA (test NONE SEEN NONE SEEN /HPF code = 5769-5) Hyaline casts, UA NONE SEEN NONE SEEN /LPF (test code = 5796-8) Note: (test code = This urin e was 8251-1) analyzed for th e presence of WBC , RBC, bacteria, casts, and othe r formed elements . Only those elements seen were reported. Urine culture (test SEE NOTE CULTURE , URINE, code = 630-4) ROUTINE Micro Number: [id number] Test Status: Final Specimen Source: Urine Specimen Qualit y: Adequate Result : 1,000-9,000 CFU/ML of Gram positive cocci isolated ,multiple morphologic types. No furth er workup TARA (test code = FASTING:UNKNOWN TARA) FASTING: UNKNOWN RAC (test code = Performing RAC) Organization Information: Site ID: RGA Name: [facility] Address: [address] [place] [phone] Director: Bandar Martinez Lab Interpretation Abnormal (test code = 90422-8) [facility], with reflex to culture 2022-04-25 11:47:00 Test Item Value Reference Range Interpretation Comments Color, UA (test code YELLOW YELLOW = 5778-6) Appearance (test CLEAR CLEAR code = 5767-9) Specific gravity, 1.021 1.001-1.035 urine (test code = 5811-5) pH, urine (test code 6.5 5.0-8.0 = 5803-2) Glucose, urine (test NEGATIVE NEGATIVE code = 98930-6) Bilirubin, UA (test NEGATIVE NEGATIVE code = 5770-3) Ketones, UA (test NEGATIVE NEGATIVE code = 2514-8) Occult blood, urine NEGATIVE NEGATIVE (test code = 5794-3) Protein, UA (test NEGATIVE NEGATIVE code = 27072-0) Nitrite, UA (test NEGATIVE NEGATIVE code = 5802-4) Leukocyte esterase, 2+ NEGATIVE A UA (test code = 5799-2) WBC, UA (test code = 10-20 See_Comment A [Autom ated 5821-4) message] The system which generated this result transmitted reference range : < OR = 5 /HPF. The reference range was not used to interpr et this result as normal/abnormal . RBC, UA (test code = NONE SEEN See_Comment [Autom ated 95953-7) message] The system which generated this result transmitted reference range : < OR = 2 /HPF. The reference range was not used to interpr et this result as normal/abnormal . Squamous epithelial 0-5 See_Comment [Automa shaun cells, UA (test code message ] The = 58982-3) system which generated this result transmitted reference range : < OR = 5 /HPF. The reference range was not used to interpr et this result as normal/abnormal . Bacteria, UA (test NONE SEEN NONE SEEN /HPF code = 5769-5) Hyaline casts, UA NONE SEEN NONE SEEN /LPF (test code = 5796-8) Note: (test code = This urin e was 8251-1) analyzed for th e presence of WBC , RBC, bacteria, casts, and othe r formed elements . Only those elements seen were reported. Urine culture (test SEE NOTE CULTURE , URINE, code = 630-4) ROUTINE Micro Number: [id number] Test Status: Final Specimen Source: Urine Specimen Qualit y: Adequate Result : 1,000-9,000 CFU/ML of Gram positive cocci isolated ,multiple morphologic types. No furth er workup TARA (test code = FASTING:UNKNOWN TARA) FASTING: UNKNOWN RAC (test code = Performing RAC) Organization Information: Site ID: [facility] Name: [facility] Address: [address] [place] [id number] Director: Bandar Martinez Lab Interpretation Abnormal (test code = 42103-2) [facility] [id number] 09:04:00 Test Item Value Reference Interpretation Comments Range Urine culture (test SEE NOTE A CULTURE , URINE, code = 630-4) ROUTINE Micro Number: [id number] Test Status: Fi nal Specimen Source : Not given Speci men Quality: Adequa te Result: Greater than 100,000 CF U/mL of Escherichia coli E.coli - INT CON AMOX/CLAVULANAT E I 16 AMPICILLIN R >=32 AMP/SULBAC LEPE R >=32 CEFAZOLI N R 8 1 CEFEPIME S <=1 CEFTAZIDIME S <=1 CEFTRIAXONE S <=1 CIPROFLOXAC IN S <=0.25 GENTAMIC IN S <=1 IMIPENEM S <=0.25 LEVOFLOX ACIN S <=0.12 NITROFURANTOIN S <=16 PIP/TAZOBA CTAM S 8 TOBRAMYCIN S <=1 TRIMETHOPRIM/WARREN LFA R >=320 S=Susceptible I=Intermediate R=Resistant * = Not TestedNR = Not Reported NN = See Therapy Comment s THERAPY COMMENT S Note 1: For uncomplicated U TI caused by E. co li, K. pneumoniae o r P. mirabilis: Cefazolin is susceptible if CON <32 mcg/mL and predicts susceptible to the oral agents cefaclor, cefdi harris, cefpodoxime, cefprozil, cefuroxime, cephalexin and loracarbef. RAC (test code = Performing RAC) Organization Information: Site ID: RGA Name: [facility] Address: [address] [place] [phone] Director: Bandar Martinez Lab Interpretation Abnormal (test code = 30457-1) [facility] [id number] 09:04:00 Test Item Value Reference Interpretation Comments Range Urine culture (test SEE NOTE A CULTURE , URINE, code = 630-4) ROUTINE Micro Number: [id number] Test Status: Fi nal Specimen Source : Not given Speci men Quality: Adequa te Result: Greater than 100,000 CF U/mL of Escherichia coli E.coli - INT CON AMOX/CLAVULANAT E I 16 AMPICILLIN R >=32 AMP/SULBAC LEPE R >=32 CEFAZOLI N R 8 1 CEFEPIME S <=1 CEFTAZIDIME S <=1 CEFTRIAXONE S <=1 CIPROFLOXAC IN S <=0.25 GENTAMIC IN S <=1 IMIPENEM S <=0.25 LEVOFLOX ACIN S <=0.12 NITROFURANTOIN S <=16 PIP/TAZOBA CTAM S 8 TOBRAMYCIN S <=1 TRIMETHOPRIM/WARREN LFA R >=320 S=Susceptible I=Intermediate R=Resistant * = Not TestedNR = Not Reported NN = See Therapy Comment s THERAPY COMMENT S Note 1: For uncomplicated U TI caused by E. co li, K. pneumoniae o r P. mirabilis: Cefazolin is susceptible if CON <32 mcg/mL and predicts susceptible to the oral agents cefaclor, cefdi harris, cefpodoxime, cefprozil, cefuroxime, cephalexin and loracarbef. RAC (test code = Performing RAC) Organization Information: Site ID: [facility] Name: [facility] Address: [address] [place] [phone] Director: Bandar Martinez Lab Interpretation Abnormal (test code = 44662-3) [facility] [id number] 09:04:00 Test Item Value Reference Interpretation Comments Range Urine culture (test SEE NOTE A CULTURE , URINE, code = 630-4) ROUTINE Micro Number: [id number] Test Status: Fi nal Specimen Source : Not given Speci men Quality: Adequa te Result: Greater than 100,000 CF U/mL of Escherichia coli E.coli - INT CON AMOX/CLAVULANAT E I 16 AMPICILLIN R >=32 AMP/SULBAC LEPE R >=32 CEFAZOLI N R 8 1 CEFEPIME S <=1 CEFTAZIDIME S <=1 CEFTRIAXONE S <=1 CIPROFLOXAC IN S <=0.25 GENTAMIC IN S <=1 IMIPENEM S <=0.25 LEVOFLOX ACIN S <=0.12 NITROFURANTOIN S <=16 PIP/TAZOBA CTAM S 8 TOBRAMYCIN S <=1 TRIMETHOPRIM/WARREN LFA R >=320 S=Susceptible I=Intermediate R=Resistant * = Not TestedNR = Not Reported NN = See Therapy Comment s THERAPY COMMENT S Note 1: For uncomplicated U TI caused by E. co li, K. pneumoniae o r P. mirabilis: Cefazolin is susceptible if CON <32 mcg/mL and predicts susceptible to the oral agents cefaclor, cefdi harris, cefpodoxime, cefprozil, cefuroxime, cephalexin and loracarbef. RAC (test code = Performing RAC) Organization Information: Site ID: [facility] Name: [facility] Address: [address] [place] [phone] Director: Bandar Martinez Lab Interpretation Abnormal (test code = 93701-3) [facility] urinalysis [id number] 14:17:39 Test Item Value Reference Range Interpretation Comments Color urine, POC (test Yellow code = 3067378) Clarity urine, POC (test Clear code = 2845891) Glucose urine, POC (test Negative Negative code = 8874070) Bilirubin urine, POC Negative Negative (test code = 9390284) Ketones urine, POC (test Negative Negative code = 7245384) Specific gravity urine, </=1.005 1.005-1.030 POC (test code = 4724872) Blood urine, POC (test Trace Negative A code = 1866788) pH urine, POC (test code See_Comment [A utomated message] = 5737851) The system [employer] generated this result transmitted ref erence range: 5.0, 5.5 , 6.0, 6.5, 7.0, 7.5, 8.0, 8.5. The refere nce range was not u sed to interpret this result as normal/abnor mal. Protein urine, POC (test Negative Negative code = 1500124) Urobilinogen urine, POC <2.0 See_Comment [Au tomated message] (test code = 0639649) The sy stem which generated this result transmitted ref erence range: <=2.0. T he reference range was not used to int erpret this result as normal/abnormal . Nitrite urine, POC (test Negative Negative code = 2950349) Leukocyte esterase Small Negative A urine, POC (test code = 5129821) Lab Interpretation (test Abnormal code = 40833-8) [facility] urinalysis [id number] 14:17:39 Test Item Value Reference Range Interpretation Comments Color urine, POC (test Yellow code = 1569712) Clarity urine, POC (test Clear code = 8427153) Glucose urine, POC (test Negative Negative code = 6155078) Bilirubin urine, POC Negative Negative (test code = 8627985) Ketones urine, POC (test Negative Negative code = 0122658) Specific gravity urine, </=1.005 1.005-1.030 POC (test code = 7630079) Blood urine, POC (test Trace Negative A code = 0989027) pH urine, POC (test code 5.0 See_Comment [A utomated message] = 0276748) The system [employer] generated this result transmitted ref erence range: 5.0, 5.5 , 6.0, 6.5, 7.0, 7.5, 8.0, 8.5. The refere nce range was not u sed to interpret this result as normal/abnor mal. Protein urine, POC (test Negative Negative code = 6229071) Urobilinogen urine, POC <2.0 <=2.0 (test code = 8314411) Nitrite urine, POC (test Negative Negative code = 4915419) Leukocyte esterase Small Negative A urine, POC (test code = 1762871) Lab Interpretation (test Abnormal code = 56434-8) [facility] urinalysis [id number] 14:17:39 Test Item Value Reference Range Interpretation Comments Color urine, POC (test Yellow code = 1789731) Clarity urine, POC (test Clear code = 7241430) Glucose urine, POC (test Negative Negative code = 3250347) Bilirubin urine, POC Negative Negative (test code = 2513843) Ketones urine, POC (test Negative Negative code = 2514-8) Specific gravity urine, </=1.005 1.005-1.030 POC (test code = 5811-5) Blood urine, POC (test Trace Negative A code = 8544445) pH urine, POC (test code 5.0 See_Comment [A utomated message] = 5803-2) The system v2tel h generated this result transmitted ref erence range: 5.0, 5.5 , 6.0, 6.5, 7.0, 7.5, 8.0, 8.5. The refere nce range was not u sed to interpret this result as normal/abnor mal. Protein urine, POC (test Negative Negative code = 74559-2) Urobilinogen urine, POC <2.0 See_Comment [Au tomated message] (test code = 57465-4) [employer] which generated this result transmitted ref erence range: <=2.0. T he reference range was not used to int erpret this result as normal/abnormal . Nitrite urine, POC (test Negative Negative code = 5802-4) Leukocyte esterase Small Negative A urine, POC (test code = 0785401) Lab Interpretation (test Abnormal code = 91011-4) [facility] [id number] 07:41:00 Test Item Value Reference Range Interpretation Comments HS Troponin I 1 Hr (test code = HS 47 Troponin I 1 Hr) [facility] HermannCARDIAC [id number] 07:41:00 Test Item Value Reference Range Interpretation Comments HS Troponin I 0 to 1 Hour Delta (test 1 1 code = HS Troponin I 0 to 1 Hour Delta) [facility] HermannCARDIAC [id number] 07:41:00 Test Item Value Reference Range Interpretation Comments HS Troponin I 1 Hr (test code = HS 47 Troponin I 1 Hr) [facility] [id number] 07:41:00 Test Item Value Reference Range Interpretation Comments HS Troponin I 0 to 1 Hour Delta (test 1 1 code = HS Troponin I 0 to 1 Hour Delta) [facility] [id number] 07:41:00 Test Item Value Reference Range Interpretation Comments HS Troponin I 1 Hr (test code = HS 47 Troponin I 1 Hr) [facility] [id number] 07:41:00 Test Item Value Reference Range Interpretation Comments HS Troponin I 0 to 1 Hour Delta (test 1 1 code = HS Troponin I 0 to 1 Hour Delta) [facility] [id number] 07:41:00 Test Item Value Reference Range Interpretation Comments HS Troponin I 1 Hr (test code = HS 47 Troponin I 1 Hr) [facility] [id number] 07:41:00 Test Item Value Reference Range Interpretation Comments HS Troponin I 0 to 1 Hour Delta (test 1 1 code = HS Troponin I 0 to 1 Hour Delta) [facility] [id number] 07:41:00 Test Item Value Reference Range Interpretation Comments HS Troponin I 1 Hr (test code = HS 47 Troponin I 1 Hr) [facility] [id number] 07:41:00 Test Item Value Reference Range Interpretation Comments HS Troponin I 0 to 1 Hour Delta (test 1 1 code = HS Troponin I 0 to 1 Hour Delta) [facility] [id number] 07:41:00 Test Item Value Reference Range Interpretation Comments HS Troponin I 1 Hr (test code = HS 47 Troponin I 1 Hr) [facility] [id number] 07:41:00 Test Item Value Reference Range Interpretation Comments HS Troponin I 0 to 1 Hour Delta (test 1 1 code = HS Troponin I 0 to 1 Hour Delta) [facility] [id number] 07:41:00 Test Item Value Reference Range Interpretation Comments HS Troponin I 1 Hr (test code = HS 47 Troponin I 1 Hr) [facility] [id number] 07:41:00 Test Item Value Reference Range Interpretation Comments HS Troponin I 0 to 1 Hour Delta (test 1 1 code = HS Troponin I 0 to 1 Hour Delta) [facility] [id number] 07:41:00 Test Item Value Reference Range Interpretation Comments HS Troponin I 1 Hr (test code = HS 47 Troponin I 1 Hr) [facility] [id number] 07:41:00 Test Item Value Reference Range Interpretation Comments HS Troponin I 0 to 1 Hour Delta (test 1 1 code = HS Troponin I 0 to 1 Hour Delta) [facility] [id number] 07:41:00 Test Item Value Reference Range Interpretation Comments HS Troponin I 1 Hr (test code = HS 47 Troponin I 1 Hr) [facility]CARPark Energy ServicesAC [id number] 07:41:00 Test Item Value Reference Range Interpretation Comments HS Troponin I 0 to 1 Hour Delta (test 1 1 code = HS Troponin I 0 to 1 Hour Delta) [facility] [id number] 07:41:00 Test Item Value Reference Range Interpretation Comments HS Troponin I 1 Hr (test code = HS 47 Troponin I 1 Hr) [facility] [id number] 07:41:00 Test Item Value Reference Range Interpretation Comments HS Troponin I 0 to 1 Hour Delta (test 1 1 code = HS Troponin I 0 to 1 Hour Delta) [facility] [id number] 07:41:00 Test Item Value Reference Range Interpretation Comments HS Troponin I 1 Hr (test code = HS 47 Troponin I 1 Hr) [facility] [id number] 07:41:00 Test Item Value Reference Range Interpretation Comments HS Troponin I 0 to 1 Hour Delta (test 1 1 code = HS Troponin I 0 to 1 Hour Delta) [facility] [id number] 07:41:00 Test Item Value Reference Range Interpretation Comments HS Troponin I 1 Hr (test code = HS 47 Troponin I 1 Hr) [facility] [id number] 07:41:00 Test Item Value Reference Range Interpretation Comments HS Troponin I 0 to 1 Hour Delta (test 1 1 code = HS Troponin I 0 to 1 Hour Delta) [facility]ann[facility] [id number] 07:41:00 Test Item Value Reference Range Interpretation Comments HS Troponin I 1 Hr (test code = HS 47 Troponin I 1 Hr) [facility]ann[facility] [id number] 07:41:00 Test Item Value Reference Range Interpretation Comments HS Troponin I 0 to 1 Hour Delta (test 1 1 code = HS Troponin I 0 to 1 Hour Delta) [facility] [id number] 07:41:00 Test Item Value Reference Range Interpretation Comments HS Troponin I 1 Hr (test code = HS 47 Troponin I 1 Hr) [facility] [id number] 07:41:00 Test Item Value Reference Range Interpretation Comments HS Troponin I 0 to 1 Hour Delta (test 1 1 code = HS Troponin I 0 to 1 Hour Delta) [facility] [id number] 07:41:00 Test Item Value Reference Range Interpretation Comments HS Troponin I 1 Hr (test code = HS 47 Troponin I 1 Hr) [facility] [id number] 07:41:00 Test Item Value Reference Range Interpretation Comments HS Troponin I 0 to 1 Hour Delta (test 1 1 code = HS Troponin I 0 to 1 Hour Delta) [facility] [id number] 07:41:00 Test Item Value Reference Range Interpretation Comments HS Troponin I 1 Hr (test code = HS 47 Troponin I 1 Hr) [facility] [id number] 07:41:00 Test Item Value Reference Range Interpretation Comments HS Troponin I 0 to 1 Hour Delta (test 1 1 code = HS Troponin I 0 to 1 Hour Delta) [facility] [id number] 07:41:00 Test Item Value Reference Range Interpretation Comments HS Troponin I 1 Hr (test code = HS 47 Troponin I 1 Hr) [facility] [id number] 07:41:00 Test Item Value Reference Range Interpretation Comments HS Troponin I 0 to 1 Hour Delta (test 1 1 code = HS Troponin I 0 to 1 Hour Delta) [facility] [id number] 07:41:00 Test Item Value Reference Range Interpretation Comments HS Troponin I 1 Hr (test code = HS 47 Troponin I 1 Hr) [facility] [id number] 07:41:00 Test Item Value Reference Range Interpretation Comments HS Troponin I 0 to 1 Hour Delta (test 1 1 code = HS Troponin I 0 to 1 Hour Delta) [facility] [id number] 07:41:00 Test Item Value Reference Range Interpretation Comments HS Troponin I 1 Hr (test code = HS 47 Troponin I 1 Hr) [facility] [id number] 07:41:00 Test Item Value Reference Range Interpretation Comments HS Troponin I 0 to 1 Hour Delta (test 1 1 code = HS Troponin I 0 to 1 Hour Delta) [facility] [id number] 07:41:00 Test Item Value Reference Range Interpretation Comments HS Troponin I 1 Hr (test code = HS 47 Troponin I 1 Hr) [facility] [id number] 07:41:00 Test Item Value Reference Range Interpretation Comments HS Troponin I 0 to 1 Hour Delta (test 1 1 code = HS Troponin I 0 to 1 Hour Delta) [facility] [id number] 07:41:00 Test Item Value Reference Range Interpretation Comments HS Troponin I 1 Hr (test code = HS 47 Troponin I 1 Hr) [facility] [id number] 07:41:00 Test Item Value Reference Range Interpretation Comments HS Troponin I 0 to 1 Hour Delta (test 1 1 code = HS Troponin I 0 to 1 Hour Delta) [facility] [id number] 07:41:00 Test Item Value Reference Range Interpretation Comments HS Troponin I 1 Hr (test code = HS 47 Troponin I 1 Hr) [facility] [id number] 07:41:00 Test Item Value Reference Range Interpretation Comments HS Troponin I 0 to 1 Hour Delta (test 1 1 code = HS Troponin I 0 to 1 Hour Delta) [facility] [id number] 07:41:00 Test Item Value Reference Range Interpretation Comments HS Troponin I 1 Hr (test code = HS 47 Troponin I 1 Hr) [facility] [id number] 07:41:00 Test Item Value Reference Range Interpretation Comments HS Troponin I 0 to 1 Hour Delta (test 1 1 code = HS Troponin I 0 to 1 Hour Delta) [facility] [id number] 07:41:00 Test Item Value Reference Range Interpretation Comments HS Troponin I 1 Hr (test code = HS 47 Troponin I 1 Hr) [facility] [id number] 07:41:00 Test Item Value Reference Range Interpretation Comments HS Troponin I 0 to 1 Hour Delta (test 1 1 code = HS Troponin I 0 to 1 Hour Delta) [facility] [id number] 07:41:00 Test Item Value Reference Range Interpretation Comments HS Troponin I 1 Hr (test code = HS 47 Troponin I 1 Hr) [facility] [id number] 07:41:00 Test Item Value Reference Range Interpretation Comments HS Troponin I 0 to 1 Hour Delta (test 1 1 code = HS Troponin I 0 to 1 Hour Delta) [facility] [id number] 07:41:00 Test Item Value Reference Range Interpretation Comments HS Troponin I 1 Hr (test code = HS 47 Troponin I 1 Hr) [facility] [id number] 07:41:00 Test Item Value Reference Range Interpretation Comments HS Troponin I 0 to 1 Hour Delta (test 1 1 code = HS Troponin I 0 to 1 Hour Delta) [facility] [id number] 07:41:00 Test Item Value Reference Range Interpretation Comments HS Troponin I 1 Hr (test code = HS 47 Troponin I 1 Hr) [facility] [id number] 07:41:00 Test Item Value Reference Range Interpretation Comments HS Troponin I 0 to 1 Hour Delta (test 1 1 code = HS Troponin I 0 to 1 Hour Delta) [facility] [id number] 07:41:00 Test Item Value Reference Range Interpretation Comments HS Troponin I 1 Hr (test code = HS 47 Troponin I 1 Hr) [facility] [id number] 07:41:00 Test Item Value Reference Range Interpretation Comments HS Troponin I 0 to 1 Hour Delta (test 1 1 code = HS Troponin I 0 to 1 Hour Delta) [facility] [id number] 07:41:00 Test Item Value Reference Range Interpretation Comments HS Troponin I 1 Hr (test code = HS 47 Troponin I 1 Hr) [facility] [id number] 07:41:00 Test Item Value Reference Range Interpretation Comments HS Troponin I 0 to 1 Hour Delta (test 1 1 code = HS Troponin I 0 to 1 Hour Delta) [facility] [id number] 07:41:00 Test Item Value Reference Range Interpretation Comments HS Troponin I 1 Hr (test code = HS 47 Troponin I 1 Hr) [facility] [id number] 07:41:00 Test Item Value Reference Range Interpretation Comments HS Troponin I 0 to 1 Hour Delta (test 1 1 code = HS Troponin I 0 to 1 Hour Delta) [facility] [id number] 07:41:00 Test Item Value Reference Range Interpretation Comments HS Troponin I 1 Hr (test code = HS 47 Troponin I 1 Hr) [facility] [id number] 07:41:00 Test Item Value Reference Range Interpretation Comments HS Troponin I 0 to 1 Hour Delta (test 1 1 code = HS Troponin I 0 to 1 Hour Delta) [facility] [id number] 07:41:00 Test Item Value Reference Range Interpretation Comments HS Troponin I 1 Hr (test code = HS 47 Troponin I 1 Hr) [facility] [id number] 07:41:00 Test Item Value Reference Range Interpretation Comments HS Troponin I 0 to 1 Hour Delta (test 1 1 code = HS Troponin I 0 to 1 Hour Delta) [facility] [id number] 07:41:00 Test Item Value Reference Range Interpretation Comments HS Troponin I 1 Hr (test code = HS 47 Troponin I 1 Hr) [facility] [id number] 07:41:00 Test Item Value Reference Range Interpretation Comments HS Troponin I 0 to 1 Hour Delta (test 1 1 code = HS Troponin I 0 to 1 Hour Delta) [facility] [id number] 07:41:00 Test Item Value Reference Range Interpretation Comments HS Troponin I 1 Hr (test code = HS 47 Troponin I 1 Hr) [facility] [id number] 07:41:00 Test Item Value Reference Range Interpretation Comments HS Troponin I 0 to 1 Hour Delta (test 1 1 code = HS Troponin I 0 to 1 Hour Delta) [facility] [id number] 07:41:00 Test Item Value Reference Range Interpretation Comments HS Troponin I 1 Hr (test code = HS 47 Troponin I 1 Hr) [facility] [id number] 07:41:00 Test Item Value Reference Range Interpretation Comments HS Troponin I 0 to 1 Hour Delta (test 1 1 code = HS Troponin I 0 to 1 Hour Delta) [facility] [id number] 07:41:00 Test Item Value Reference Range Interpretation Comments HS Troponin I 1 Hr (test code = HS 47 Troponin I 1 Hr) [facility] [id number] 07:41:00 Test Item Value Reference Range Interpretation Comments HS Troponin I 0 to 1 Hour Delta (test 1 1 code = HS Troponin I 0 to 1 Hour Delta) [facility] [id number] 07:41:00 Test Item Value Reference Range Interpretation Comments HS Troponin I 1 Hr (test code = HS 47 Troponin I 1 Hr) [facility] [id number] 07:41:00 Test Item Value Reference Range Interpretation Comments HS Troponin I 0 to 1 Hour Delta (test 1 1 code = HS Troponin I 0 to 1 Hour Delta) [facility] [id number] 07:41:00 Test Item Value Reference Range Interpretation Comments HS Troponin I 1 Hr (test code = HS 47 Troponin I 1 Hr) [facility] [id number] 07:41:00 Test Item Value Reference Range Interpretation Comments HS Troponin I 0 to 1 Hour Delta (test 1 1 code = HS Troponin I 0 to 1 Hour Delta) [facility] [id number] 07:41:00 Test Item Value Reference Range Interpretation Comments HS Troponin I 1 Hr (test code = HS 47 Troponin I 1 Hr) [facility] [id number] 07:41:00 Test Item Value Reference Range Interpretation Comments HS Troponin I 0 to 1 Hour Delta (test 1 1 code = HS Troponin I 0 to 1 Hour Delta) [facility] [id number] 07:41:00 Test Item Value Reference Range Interpretation Comments HS Troponin I 1 Hr (test code = HS 47 Troponin I 1 Hr) [facility] [id number] 07:41:00 Test Item Value Reference Range Interpretation Comments HS Troponin I 0 to 1 Hour Delta (test 1 1 code = HS Troponin I 0 to 1 Hour Delta) [facility] [id number] 07:41:00 Test Item Value Reference Range Interpretation Comments HS Troponin I 1 Hr (test code = HS 47 Troponin I 1 Hr) [facility] [id number] 07:41:00 Test Item Value Reference Range Interpretation Comments HS Troponin I 0 to 1 Hour Delta (test 1 1 code = HS Troponin I 0 to 1 Hour Delta) [facility] [id number] 07:41:00 Test Item Value Reference Range Interpretation Comments HS Troponin I 1 Hr (test code = HS 47 Troponin I 1 Hr) [facility] [id number] 07:41:00 Test Item Value Reference Range Interpretation Comments HS Troponin I 0 to 1 Hour Delta (test 1 1 code = HS Troponin I 0 to 1 Hour Delta) [facility] [id number] 07:41:00 Test Item Value Reference Range Interpretation Comments HS Troponin I 1 Hr (test code = HS 47 Troponin I 1 Hr) [facility] [id number] 07:41:00 Test Item Value Reference Range Interpretation Comments HS Troponin I 0 to 1 Hour Delta (test 1 1 code = HS Troponin I 0 to 1 Hour Delta) [facility] [id number] 07:41:00 Test Item Value Reference Range Interpretation Comments HS Troponin I 1 Hr (test code = HS 47 Troponin I 1 Hr) [facility] [id number] 07:41:00 Test Item Value Reference Range Interpretation Comments HS Troponin I 0 to 1 Hour Delta (test 1 1 code = HS Troponin I 0 to 1 Hour Delta) [facility] [id number] 07:41:00 Test Item Value Reference Range Interpretation Comments HS Troponin I 1 Hr (test code = HS 47 Troponin I 1 Hr) [facility] [id number] 07:41:00 Test Item Value Reference Range Interpretation Comments HS Troponin I 0 to 1 Hour Delta (test 1 1 code = HS Troponin I 0 to 1 Hour Delta) [facility] [id number] 07:41:00 Test Item Value Reference Range Interpretation Comments HS Troponin I 1 Hr (test code = HS 47 Troponin I 1 Hr) [facility] [id number] 07:41:00 Test Item Value Reference Range Interpretation Comments HS Troponin I 0 to 1 Hour Delta (test 1 1 code = HS Troponin I 0 to 1 Hour Delta) [facility] [id number] 06:26:00 Test Item Value Reference Range Interpretation Comments AST (test code = AST) 19 See_Comment [Auto mated message] The system which ge nerated this result transmit shaun reference range : <=37. The reference range was not used to interpr et this result as jackeline l/abnormal. [facility] [id number] 06:26:00 Test Item Value Reference Range Interpretation Comments Alk Phos (test code = Alk Phos) 92 39-136 [facility]2022-08-28 06:26:00 Test Item Value Reference Range Interpretation Comments Bili Total (test code = Bili Total) 0.3 0.2-1.3 [facility]2022-08-28 06:26:00 Test Item Value Reference Range Interpretation Comments AGAP (test code = AGAP) 8.1 10.0-20.0 [facility]2022-08-28 06:26:00 Test Item Value Reference Range Interpretation Comments B/C Ratio (test code = B/C Ratio) 18 1 6-25 [facility]2022-08-28 06:26:00 Test Item Value Reference Range Interpretation Comments Globulin (test code = Globulin) 3.8 2.7-4.2 [facility]2022-08-28 06:26:00 Test Item Value Reference Range Interpretation Comments A/G Ratio (test code = A/G Ratio) 0.9 1 0.7-1.6 [place] 626922-08-28 06:26:00 Test Item Value Reference Range Interpretation Comments eGFR (test code = eGFR) 95 [facility]oSrmpmdtUJVIBURIQZ9639-86-82 06:26:00 Test Item Value Reference Range Interpretation Comments WBC (test code = WBC) 7.6 3.7-10.4 [facility]TxozomeUMHFFWAHSX2297-26-65 06:26:00 Test Item Value Reference Range Interpretation Comments RBC (test code = RBC) 4.38 4.20-5.40 [facility] PasoRmrdzctYMGAQENJEQ0258-65-84 06:26:00 Test Item Value Reference Range Interpretation Comments Hgb (test code = Hgb) 13.1 12.0-16.0 [facility] PasoAvsfuxnRJVZKHHZIK1970-34-75 06:26:00 Test Item Value Reference Range Interpretation Comments Hct (test code = Hct) 39.4 36.0-48.0 [facility] [id number] 06:26:00 Test Item Value Reference Range Interpretation Comments MCV (test code = MCV) 90.0 80.0-98.0 [facility] PasoSfcipppPFUYBPRXDV8008-88-62 06:26:00 Test Item Value Reference Range Interpretation Comments MCH (test code = MCH) 29.9 pg 27.0-31.0 [facility] PasoVhnffzyLOBUUUFIFD9558-13-89 06:26:00 Test Item Value Reference Range Interpretation Comments MCHC (test code = MCHC) 33.2 32.0-36.0 [facility] PasoBdvxdcfVOOIDLCILI2194-84-23 06:26:00 Test Item Value Reference Range Interpretation Comments RDW (test code = RDW) 13.2 11.5-14.5 [facility] PasoQsidlrkJUFQPHVHTF0810-40-23 06:26:00 Test Item Value Reference Range Interpretation Comments Platelet (test code = Platelet) 176 133-450 [facility] PasoNhzkwdaDGEJEUDDXE8162-61-56 06:26:00 Test Item Value Reference Range Interpretation Comments MPV (test code = MPV) 10.0 7.4-10.4 [facility] PasoKuovwccIPELGXTOCB2840-36-66 06:26:00 Test Item Value Reference Range Interpretation Comments Segs (test code = Segs) 58.0 45.0-75.0 [facility] PasoKgzgusbJFPFBENGLM3829-21-31 06:26:00 Test Item Value Reference Range Interpretation Comments Lymphocytes (test code = Lymphocytes) 30.2 20.0-40.0 [facility] PasoQdgylbvRWDXFBDIIJ4905-92-24 06:26:00 Test Item Value Reference Range Interpretation Comments Monocytes (test code = Monocytes) 7.8 2.0-12.0 [facility] PasoBejxxejEFQIHKZMQD6182-98-05 06:26:00 Test Item Value Reference Range Interpretation Comments Eosinophils (test code = 3.7 See_Comment [A utomated message] The Eosinophils) system which ge nerated this result tra nsmitted reference range : <=4.0. The reference r lily was not used to int erpret this result as normal/abnormal . [facility] CampusReoowwiPGZOECZYCV6793-57-83 06:26:00 Test Item Value Reference Range Interpretation Comments Basophils (test code = 0.3 See_Comment [Aut omated message] The Basophils) system which ge nerated this result tra nsmitted reference range : <=1.0. The reference r lily was not used to int erpret this result as normal/abnormal . [facility]awYbknsjlMCPWUQFEAH6574-91-13 06:26:00 Test Item Value Reference Range Interpretation Comments Neutrophils # (test code = Neutrophils 4.4 1.5-8.1 #) [facility]awBzhtfleNONOVMJNDC9243-23-82 06:26:00 Test Item Value Reference Range Interpretation Comments Lymphocytes # (test code = Lymphocytes 2.3 1.0-5.5 #) [facility] PasoNrktlwyHVQRJRBESH2769-05-72 06:26:00 Test Item Value Reference Range Interpretation Comments Monocytes # (test code 0.6 See_Comment [Aut omated message] The = Monocytes #) system which generated this result tra nsmitted reference range : <=0.8. The reference r lily was not used to int erpret this result as normal/abnormal . [facility] PasoDlspeujSEXEUCGIXS4479-44-05 06:26:00 Test Item Value Reference Range Interpretation Comments Eosinophils # (test code 0.3 See_Comment [A utomated message] The = Eosinophils #) system whic h generated this result tra nsmitted reference range : <=0.5. The reference r lily was not used to int erpret this result as normal/abnormal . [facility] [id number] 06:26:00 Test Item Value Reference Range Interpretation Comments HS Troponin I Baseline (test code = HS 46 Troponin I Baseline) [facility] [id number] 06:26:00 Test Item Value Reference Range Interpretation Comments Glucose Lvl (test code = Glucose Lvl) 122 70-99 [facility] [id number] 06:26:00 Test Item Value Reference Range Interpretation Comments BUN (test code = BUN) 12 7-22 [facility] [id number] 06:26:00 Test Item Value Reference Range Interpretation Comments Creatinine Lvl (test code = Creatinine 0.66 0.50-1.40 Lvl) [place] 626922-08-28 06:26:00 Test Item Value Reference Range Interpretation Comments Sodium Lvl (test code = Sodium Lvl) 140 135-145 [place] 626922-08-28 06:26:00 Test Item Value Reference Range Interpretation Comments Potassium Lvl (test code = Potassium 4.1 3.5-5.1 Lvl) [place] 626922-08-28 06:26:00 Test Item Value Reference Range Interpretation Comments Chloride Lvl (test code = Chloride Lvl) 109 95-109 [place] 626922-08-28 06:26:00 Test Item Value Reference Range Interpretation Comments CO2 (test code = CO2) 27 24-32 [place] 626922-08-28 06:26:00 Test Item Value Reference Range Interpretation Comments Calcium Lvl (test code = Calcium Lvl) 9.3 8.5-10.5 [place] 626922-08-28 06:26:00 Test Item Value Reference Range Interpretation Comments Total Protein (test code = Total 7.4 6.4-8.4 Protein) [place] 626922-08-28 06:26:00 Test Item Value Reference Range Interpretation Comments Albumin Lvl (test code = Albumin Lvl) 3.6 3.5-5.0 [place] 626922-08-28 06:26:00 Test Item Value Reference Range Interpretation Comments ALT (test code = ALT) 19 See_Comment [Auto mated message] The system which ge nerated this result transmit shaun reference range : <=65. The reference range was not used to interpr et this result as jackeline l/abnormal. [place] 626922-08-28 06:26:00 Test Item Value Reference Range Interpretation Comments B/C Ratio (test code = B/C Ratio) 18 1 6-25 [place] 626922-08-28 06:26:00 Test Item Value Reference Range Interpretation Comments Globulin (test code = Globulin) 3.8 2.7-4.2 [place] 626922-08-28 06:26:00 Test Item Value Reference Range Interpretation Comments A/G Ratio (test code = A/G Ratio) 0.9 1 0.7-1.6 [facility] [id number] 06:26:00 Test Item Value Reference Range Interpretation Comments HS Troponin I Baseline (test code = HS 46 Troponin I Baseline) [facility]2022-08-28 06:26:00 Test Item Value Reference Range Interpretation Comments Glucose Lvl (test code = Glucose Lvl) 122 70-99 [place] 626922-08-28 06:26:00 Test Item Value Reference Range Interpretation Comments BUN (test code = BUN) 12 7-22 [place] 626922-08-28 06:26:00 Test Item Value Reference Range Interpretation Comments Creatinine Lvl (test code = Creatinine 0.66 0.50-1.40 Lvl) [place] 626922-08-28 06:26:00 Test Item Value Reference Range Interpretation Comments Sodium Lvl (test code = Sodium Lvl) 140 135-145 [place] 626922-08-28 06:26:00 Test Item Value Reference Range Interpretation Comments Potassium Lvl (test code = Potassium 4.1 3.5-5.1 Lvl) [place] 626922-08-28 06:26:00 Test Item Value Reference Range Interpretation Comments Chloride Lvl (test code = Chloride Lvl) 109 95-109 [place] 626922-08-28 06:26:00 Test Item Value Reference Range Interpretation Comments CO2 (test code = CO2) 27 24-32 [place] 626922-08-28 06:26:00 Test Item Value Reference Range Interpretation Comments Calcium Lvl (test code = Calcium Lvl) 9.3 8.5-10.5 [facility]2022-08-28 06:26:00 Test Item Value Reference Range Interpretation Comments Total Protein (test code = Total 7.4 6.4-8.4 Protein) [place] 626922-08-28 06:26:00 Test Item Value Reference Range Interpretation Comments Albumin Lvl (test code = Albumin Lvl) 3.6 3.5-5.0 [facility]2022-08-28 06:26:00 Test Item Value Reference Range Interpretation Comments ALT (test code = ALT) 19 See_Comment [Auto mated message] The system which ge nerated this result transmit shaun reference range : <=65. The reference range was not used to interpr et this result as jackeline l/abnormal. [place] 626922-08-28 06:26:00 Test Item Value Reference Range Interpretation Comments AST (test code = AST) 19 See_Comment [Auto mated message] The system which ge nerated this result transmit shaun reference range : <=37. The reference range was not used to interpr et this result as jackeline l/abnormal. [place] 626922-08-28 06:26:00 Test Item Value Reference Range Interpretation Comments Alk Phos (test code = Alk Phos) 92 39-136 [place] [address]-08-28 06:26:00 Test Item Value Reference Range Interpretation Comments Bili Total (test code = Bili Total) 0.3 0.2-1.3 [place] [address]-08-28 06:26:00 Test Item Value Reference Range Interpretation Comments AGAP (test code = AGAP) 8.1 10.0-20.0 [place] [address]-08-28 06:26:00 Test Item Value Reference Range Interpretation Comments B/C Ratio (test code = B/C Ratio) 18 1 6-[address]08-28 06:26:00 Test Item Value Reference Range Interpretation Comments Globulin (test code = Globulin) 3.8 2.7-4.2 [place] [address]-08-28 06:26:00 Test Item Value Reference Range Interpretation Comments A/G Ratio (test code = A/G Ratio) 0.9 1 0.7-1.6 [place] [address]-08-28 06:26:00 Test Item Value Reference Range Interpretation Comments eGFR (test code = eGFR) 95 [place] [address]-08-28 06:26:00 Test Item Value Reference Range Interpretation Comments WBC (test code = WBC) 7.6 3.7-10.4 [place] [address]-08-28 06:26:00 Test Item Value Reference Range Interpretation Comments RBC (test code = RBC) 4.38 4.20-5.40 [place] [address]-08-28 06:26:00 Test Item Value Reference Range Interpretation Comments Hgb (test code = Hgb) 13.1 12.0-16.0 [place] 107532-08-28 06:26:00 Test Item Value Reference Range Interpretation Comments Hct (test code = Hct) 39.4 36.0-48.0 [place] 107532-08-28 06:26:00 Test Item Value Reference Range Interpretation Comments MCV (test code = MCV) 90.0 80.0-98.0 [place] 107532-08-28 06:26:00 Test Item Value Reference Range Interpretation Comments MCH (test code = MCH) 29.9 pg 27.0-31.0 [place] 107532-08-28 06:26:00 Test Item Value Reference Range Interpretation Comments MCHC (test code = MCHC) 33.2 32.0-36.0 [place] 107532-08-28 06:26:00 Test Item Value Reference Range Interpretation Comments RDW (test code = RDW) 13.2 11.5-14.5 [place] 107532-08-28 06:26:00 Test Item Value Reference Range Interpretation Comments Platelet (test code = Platelet) 176 133-450 [facility] PasoUjsmwknVKSLUUSMLA1527-07-46 06:26:00 Test Item Value Reference Range Interpretation Comments MPV (test code = MPV) 10.0 7.4-10.4 [place] 107532-08-28 06:26:00 Test Item Value Reference Range Interpretation Comments Segs (test code = Segs) 58.0 45.0-75.0 [place] 107532-08-28 06:26:00 Test Item Value Reference Range Interpretation Comments Lymphocytes (test code = Lymphocytes) 30.2 20.0-40.0 [place] 107532-08-28 06:26:00 Test Item Value Reference Range Interpretation Comments Monocytes (test code = Monocytes) 7.8 2.0-12.0 [place] 107532-08-28 06:26:00 Test Item Value Reference Range Interpretation Comments Eosinophils (test code = 3.7 See_Comment [A utomated message] The Eosinophils) system which ge nerated this result tra nsmitted reference range : <=4.0. The reference r lily was not used to int erpret this result as normal/abnormal . [place] 107532-08-28 06:26:00 Test Item Value Reference Range Interpretation Comments Basophils (test code = 0.3 See_Comment [Aut omated message] The Basophils) system which ge nerated this result tra nsmitted reference range : <=1.0. The reference r lily was not used to int erpret this result as normal/abnormal . [facility] PasoKufxotsKLVZZHISRT3351-99-87 06:26:00 Test Item Value Reference Range Interpretation Comments Neutrophils # (test code = Neutrophils 4.4 1.5-8.1 #) [facility] PasoIkhecuoLRILVDCGRZ3217-12-43 06:26:00 Test Item Value Reference Range Interpretation Comments Lymphocytes # (test code = Lymphocytes 2.3 1.0-5.5 #) [facility] PasoWjleixsTAJAPMADFL1278-97-38 06:26:00 Test Item Value Reference Range Interpretation Comments Monocytes # (test code 0.6 See_Comment [Aut omated message] The = Monocytes #) system which generated this result tra nsmitted reference range : <=0.8. The reference r lily was not used to int erpret this result as normal/abnormal . [facility] PasoIprkicrWJQHZRRRSV0917-34-59 06:26:00 Test Item Value Reference Range Interpretation Comments Eosinophils # (test code 0.3 See_Comment [A utomated message] The = Eosinophils #) system whic h generated this result tra nsmitted reference range : <=0.5. The reference r lily was not used to int erpret this result as normal/abnormal . [facility]2022-08-28 06:26:00 Test Item Value Reference Range Interpretation Comments eGFR (test code = eGFR) 95 [facility] [id number] 06:26:00 Test Item Value Reference Range Interpretation Comments HS Troponin I Baseline (test code = HS 46 Troponin I Baseline) [facility]2022-08-28 06:26:00 Test Item Value Reference Range Interpretation Comments Glucose Lvl (test code = Glucose Lvl) 122 70-99 [facility]2022-08-28 06:26:00 Test Item Value Reference Range Interpretation Comments BUN (test code = BUN) 12 7-22 [place] 626922-08-28 06:26:00 Test Item Value Reference Range Interpretation Comments Creatinine Lvl (test code = Creatinine 0.66 0.50-1.40 Lvl) [place] 626922-08-28 06:26:00 Test Item Value Reference Range Interpretation Comments Sodium Lvl (test code = Sodium Lvl) 140 135-145 [place] [address]-08-28 06:26:00 Test Item Value Reference Range Interpretation Comments Potassium Lvl (test code = Potassium 4.1 3.5-5.1 Lvl) [facility] CampusNhfihmtDZFABGQGYF9978-94-42 06:26:00 Test Item Value Reference Range Interpretation Comments WBC (test code = WBC) 7.6 3.7-10.4 [place] [address]-08-28 06:26:00 Test Item Value Reference Range Interpretation Comments Chloride Lvl (test code = Chloride Lvl) 109 95-109 [place] 626922-08-28 06:26:00 Test Item Value Reference Range Interpretation Comments CO2 (test code = CO2) 27 24-32 [place] 626922-08-28 06:26:00 Test Item Value Reference Range Interpretation Comments Calcium Lvl (test code = Calcium Lvl) 9.3 8.5-10.5 [place] [address]-08-28 06:26:00 Test Item Value Reference Range Interpretation Comments Total Protein (test code = Total 7.4 6.4-8.4 Protein) [place] [address]-08-28 06:26:00 Test Item Value Reference Range Interpretation Comments Albumin Lvl (test code = Albumin Lvl) 3.6 3.5-5.0 [place] 626922-08-28 06:26:00 Test Item Value Reference Range Interpretation Comments ALT (test code = ALT) 19 See_Comment [Auto mated message] The system which nerated this result transmit shaun reference range : <=65. The reference range was not used to interpr et this result as jackeline l/abnormal. [place] 626922-08-28 06:26:00 Test Item Value Reference Range Interpretation Comments AST (test code = AST) 19 See_Comment [Auto mated message] The system which ge nerated this result transmit shaun reference range : <=37. The reference range was not used to interpr et this result as jackeline l/abnormal. [place] 626922-08-28 06:26:00 Test Item Value Reference Range Interpretation Comments Alk Phos (test code = Alk Phos) 92 39-136 [facility]2022-08-28 06:26:00 Test Item Value Reference Range Interpretation Comments Bili Total (test code = Bili Total) 0.3 0.2-1.3 [facility]2022-08-28 06:26:00 Test Item Value Reference Range Interpretation Comments AGAP (test code = AGAP) 8.1 10.0-20.0 [facility] PasoUkzgrcwCMZVWLTRZX8371-52-49 06:26:00 Test Item Value Reference Range Interpretation Comments RBC (test code = RBC) 4.38 4.20-5.40 [facility]2022-08-28 06:26:00 Test Item Value Reference Range Interpretation Comments B/C Ratio (test code = B/C Ratio) 18 1 6-25 [facility]2022-08-28 06:26:00 Test Item Value Reference Range Interpretation Comments Globulin (test code = Globulin) 3.8 2.7-4.2 [facility]2022-08-28 06:26:00 Test Item Value Reference Range Interpretation Comments A/G Ratio (test code = A/G Ratio) 0.9 1 0.7-1.6 [facility]2022-08-28 06:26:00 Test Item Value Reference Range Interpretation Comments eGFR (test code = eGFR) 95 [facility] PasoVlavuvqOSMTSZXEMJ5481-78-47 06:26:00 Test Item Value Reference Range Interpretation Comments WBC (test code = WBC) 7.6 3.7-10.4 [facility] PasoAsxauevETSDMPIHUH0445-58-04 06:26:00 Test Item Value Reference Range Interpretation Comments RBC (test code = RBC) 4.38 4.20-5.40 [facility] RFNVBKG7375-13-10 06:26:00 Test Item Value Reference Range Interpretation Comments HS Troponin I Baseline (test code = HS 46 Troponin I Baseline) [facility]2022-08-28 06:26:00 Test Item Value Reference Range Interpretation Comments Glucose Lvl (test code = Glucose Lvl) 122 70-99 [facility]2022-08-28 06:26:00 Test Item Value Reference Range Interpretation Comments BUN (test code = BUN) 12 7-22 [facility] PasoChzhoswFJFVGIAADC6819-72-93 06:26:00 Test Item Value Reference Range Interpretation Comments Hgb (test code = Hgb) 13.1 12.0-16.0 [place] [address]-08-28 06:26:00 Test Item Value Reference Range Interpretation Comments Creatinine Lvl (test code = Creatinine 0.66 0.50-1.40 Lvl) [place] [address]-08-28 06:26:00 Test Item Value Reference Range Interpretation Comments Sodium Lvl (test code = Sodium Lvl) 140 135-145 [place] [address]-08-28 06:26:00 Test Item Value Reference Range Interpretation Comments Potassium Lvl (test code = Potassium 4.1 3.5-5.1 Lvl) [place] [address]-08-28 06:26:00 Test Item Value Reference Range Interpretation Comments Chloride Lvl (test code = Chloride Lvl) 109 95-109 [place] [address]-08-28 06:26:00 Test Item Value Reference Range Interpretation Comments CO2 (test code = CO2) 27 24-32 [place] [address]-08-28 06:26:00 Test Item Value Reference Range Interpretation Comments Calcium Lvl (test code = Calcium Lvl) 9.3 8.5-10.5 [place] [address]-08-28 06:26:00 Test Item Value Reference Range Interpretation Comments Total Protein (test code = Total 7.4 6.4-8.4 Protein) [place] [address]-08-28 06:26:00 Test Item Value Reference Range Interpretation Comments Albumin Lvl (test code = Albumin Lvl) 3.6 3.5-5.0 [place] [address]-08-28 06:26:00 Test Item Value Reference Range Interpretation Comments ALT (test code = ALT) 19 See_Comment [Auto mated message] The system which ge nerated this result transmit shaun reference range : <=65. The reference range was not used to interpr et this result as jackeline l/abnormal. [place] [address]-08-28 06:26:00 Test Item Value Reference Range Interpretation Comments AST (test code = AST) 19 See_Comment [Auto mated message] The system which ge nerated this result transmit shaun reference range : <=37. The reference range was not used to interpr et this result as jackeline l/abnormal. [place] 107532-08-28 06:26:00 Test Item Value Reference Range Interpretation Comments Hct (test code = Hct) 39.4 36.0-48.0 [place] 626922-08-28 06:26:00 Test Item Value Reference Range Interpretation Comments Alk Phos (test code = Alk Phos) 92 39-136 [place] 626922-08-28 06:26:00 Test Item Value Reference Range Interpretation Comments Bili Total (test code = Bili Total) 0.3 0.2-1.3 [place] 626922-08-28 06:26:00 Test Item Value Reference Range Interpretation Comments AGAP (test code = AGAP) 8.1 10.0-20.0 [place] 626922-08-28 06:26:00 Test Item Value Reference Range Interpretation Comments B/C Ratio (test code = B/C Ratio) 18 1 6-25 [place] 626922-08-28 06:26:00 Test Item Value Reference Range Interpretation Comments Globulin (test code = Globulin) 3.8 2.7-4.2 [place] 626922-08-28 06:26:00 Test Item Value Reference Range Interpretation Comments A/G Ratio (test code = A/G Ratio) 0.9 1 0.7-1.6 [place] 626922-08-28 06:26:00 Test Item Value Reference Range Interpretation Comments eGFR (test code = eGFR) 95 [place] 107532-08-28 06:26:00 Test Item Value Reference Range Interpretation Comments WBC (test code = WBC) 7.6 3.7-10.4 [place] 107532-08-28 06:26:00 Test Item Value Reference Range Interpretation Comments RBC (test code = RBC) 4.38 4.20-5.40 [place] 107532-08-28 06:26:00 Test Item Value Reference Range Interpretation Comments Hgb (test code = Hgb) 13.1 12.0-16.0 [place] 107532-08-28 06:26:00 Test Item Value Reference Range Interpretation Comments MCV (test code = MCV) 90.0 80.0-98.[address]08-28 06:26:00 Test Item Value Reference Range Interpretation Comments Hct (test code = Hct) 39.4 36.0-48.0 [place] 107532-08-28 06:26:00 Test Item Value Reference Range Interpretation Comments MCV (test code = MCV) 90.0 80.0-98.0 [place] 107532-08-28 06:26:00 Test Item Value Reference Range Interpretation Comments MCH (test code = MCH) 29.9 pg 27.0-31.0 [place] 107532-08-28 06:26:00 Test Item Value Reference Range Interpretation Comments MCHC (test code = MCHC) 33.2 32.0-36.0 [place] 107532-08-28 06:26:00 Test Item Value Reference Range Interpretation Comments RDW (test code = RDW) 13.2 11.5-14.5 [place] 107532-08-28 06:26:00 Test Item Value Reference Range Interpretation Comments Platelet (test code = Platelet) 176 133-450 [facility] PasoGhsgbvgKUWZRYGYET8143-34-86 06:26:00 Test Item Value Reference Range Interpretation Comments MPV (test code = MPV) 10.0 7.4-10.4 [facility] PasoKvcajilTDCQFJXQIF4024-59-98 06:26:00 Test Item Value Reference Range Interpretation Comments Segs (test code = Segs) 58.0 45.0-75.0 [facility] PasoRyyesxkXSFULTILXJ5682-97-88 06:26:00 Test Item Value Reference Range Interpretation Comments Lymphocytes (test code = Lymphocytes) 30.2 20.0-40.0 [facility] PasoQirtzshMWLXELGKTL8434-31-31 06:26:00 Test Item Value Reference Range Interpretation Comments Monocytes (test code = Monocytes) 7.8 2.0-12.0 [place] [address]-08-28 06:26:00 Test Item Value Reference Range Interpretation Comments MCH (test code = MCH) 29.9 pg 27.0-31.0 [place] [address]-08-28 06:26:00 Test Item Value Reference Range Interpretation Comments Eosinophils (test code = 3.7 See_Comment [A utomated message] The Eosinophils) system which ge nerated this result tra nsmitted reference range : <=4.0. The reference r lily was not used to int erpret this result as normal/abnormal . [facility] PasoPdmahczSJFEWAIIZZ0920-48-09 06:26:00 Test Item Value Reference Range Interpretation Comments Basophils (test code = 0.3 See_Comment [Aut omated message] The Basophils) system which ge nerated this result tra nsmitted reference range : <=1.0. The reference r lily was not used to int erpret this result as normal/abnormal . [facility] PasoJtslwryCYEKOPMXYZ9023-20-83 06:26:00 Test Item Value Reference Range Interpretation Comments Neutrophils # (test code = Neutrophils 4.4 1.5-8.1 #) [facility] PasoZzbjhwqJAIHNHLULE4744-11-26 06:26:00 Test Item Value Reference Range Interpretation Comments Lymphocytes # (test code = Lymphocytes 2.3 1.0-5.5 #) [facility] PasoTrixzrbZFHECEFMVL9395-45-50 06:26:00 Test Item Value Reference Range Interpretation Comments Monocytes # (test code 0.6 See_Comment [Aut omated message] The = Monocytes #) system which generated this result tra nsmitted reference range : <=0.8. The reference r lily was not used to int erpret this result as normal/abnormal . [facility] PasoNeqiftgHACZTJHWJM1247-18-51 06:26:00 Test Item Value Reference Range Interpretation Comments Eosinophils # (test code 0.3 See_Comment [A utomated message] The = Eosinophils #) system whic h generated this result tra nsmitted reference range : <=0.5. The reference r lily was not used to int erpret this result as normal/abnormal . [facility] PasoKbrltcfGTCWMPXJTM0483-54-77 06:26:00 Test Item Value Reference Range Interpretation Comments Hgb (test code = Hgb) 13.1 12.0-16.0 [facility] PasoEmjdpkkYYJEYHGEWR1912-41-33 06:26:00 Test Item Value Reference Range Interpretation Comments MCHC (test code = MCHC) 33.2 32.0-36.0 [facility] PasoLstlvhaPRLSSEUPCI2516-35-76 06:26:00 Test Item Value Reference Range Interpretation Comments RDW (test code = RDW) 13.2 11.5-14.5 [facility] PasoGibfryhQRNUFJTQCH2564-30-39 06:26:00 Test Item Value Reference Range Interpretation Comments Platelet (test code = Platelet) 176 133-450 [facility] PasoQtgudtgCNNDLOYYFH4516-64-27 06:26:00 Test Item Value Reference Range Interpretation Comments MPV (test code = MPV) 10.0 7.4-10.4 [facility] PasoBajpgvaMUPTRCWHGP0132-06-31 06:26:00 Test Item Value Reference Range Interpretation Comments Segs (test code = Segs) 58.0 45.0-75.0 [facility] PasoJtmdceoFPAGTMXEQN8136-01-20 06:26:00 Test Item Value Reference Range Interpretation Comments Lymphocytes (test code = Lymphocytes) 30.2 20.0-40.0 [place] 107532-08-28 06:26:00 Test Item Value Reference Range Interpretation Comments Monocytes (test code = Monocytes) 7.8 2.0-12.0 [facility] PasoDwhrsdoKJZCAGEJSG8109-38-49 06:26:00 Test Item Value Reference Range Interpretation Comments Eosinophils (test code = 3.7 See_Comment [A utomated message] The Eosinophils) system which ge nerated this result tra nsmitted reference range : <=4.0. The reference r lily was not used to int erpret this result as normal/abnormal . [facility] PasoKyummulGJUDYMMRQA3932-19-63 06:26:00 Test Item Value Reference Range Interpretation Comments Basophils (test code = 0.3 See_Comment [Aut omated message] The Basophils) system which ge nerated this result tra nsmitted reference range : <=1.0. The reference r lily was not used to int erpret this result as normal/abnormal . [facility] PasoLlumkmdTXEKVNJDLE2150-66-93 06:26:00 Test Item Value Reference Range Interpretation Comments Neutrophils # (test code = Neutrophils 4.4 1.5-8.1 #) [facility] PasoXcgbzktRULLTJLNLD3850-46-75 06:26:00 Test Item Value Reference Range Interpretation Comments Hct (test code = Hct) 39.4 36.0-48.0 [place] 107532-08-28 06:26:00 Test Item Value Reference Range Interpretation Comments Lymphocytes # (test code = Lymphocytes 2.3 1.0-5.5 #) [facility] PasoXzeionyJHZOTBXXAD3253-78-98 06:26:00 Test Item Value Reference Range Interpretation Comments Monocytes # (test code 0.6 See_Comment [Aut omated message] The = Monocytes #) system which generated this result tra nsmitted reference range : <=0.8. The reference r lily was not used to int erpret this result as normal/abnormal . [facility] PasoZdqexdpHOWPPRCFHZ4112-84-73 06:26:00 Test Item Value Reference Range Interpretation Comments Eosinophils # (test code 0.3 See_Comment [A utomated message] The = Eosinophils #) system whic h generated this result tra nsmitted reference range : <=0.5. The reference r lily was not used to int erpret this result as normal/abnormal . [facility] PasoUdcshndGAQDEWGSLM5615-22-32 06:26:00 Test Item Value Reference Range Interpretation Comments MCV (test code = MCV) 90.0 80.0-98.0 [facility] DRRVNZO9338-11-68 06:26:00 Test Item Value Reference Range Interpretation Comments HS Troponin I Baseline (test code = HS 46 Troponin I Baseline) [facility]Ad[facility] AXCMO9120-95-10 06:26:00 Test Item Value Reference Range Interpretation Comments Glucose Lvl (test code = Glucose Lvl) 122 70-99 [facility]Ad[facility] [id number] 06:26:00 Test Item Value Reference Range Interpretation Comments BUN (test code = BUN) 12 7-22 [facility] [id number] 06:26:00 Test Item Value Reference Range Interpretation Comments Creatinine Lvl (test code = Creatinine 0.66 0.50-1.40 Lvl) [facility] [id number] 06:26:00 Test Item Value Reference Range Interpretation Comments Sodium Lvl (test code = Sodium Lvl) 140 135-145 [facility] [id number] 06:26:00 Test Item Value Reference Range Interpretation Comments Potassium Lvl (test code = Potassium 4.1 3.5-5.1 Lvl) [facility] [id number] 06:26:00 Test Item Value Reference Range Interpretation Comments Chloride Lvl (test code = Chloride Lvl) 109 95-109 [facility] [id number] 06:26:00 Test Item Value Reference Range Interpretation Comments CO2 (test code = CO2) 27 24-32 [facility] [id number] 06:26:00 Test Item Value Reference Range Interpretation Comments Calcium Lvl (test code = Calcium Lvl) 9.3 8.5-10.5 [place] 626922-08-28 06:26:00 Test Item Value Reference Range Interpretation Comments Total Protein (test code = Total 7.4 6.4-8.4 Protein) [place] 626922-08-28 06:26:00 Test Item Value Reference Range Interpretation Comments Albumin Lvl (test code = Albumin Lvl) 3.6 3.5-5.0 [place] 626922-08-28 06:26:00 Test Item Value Reference Range Interpretation Comments ALT (test code = ALT) 19 See_Comment [Auto mated message] The system which ge nerated this result transmit shaun reference range : <=65. The reference range was not used to interpr et this result as jackeline l/abnormal. [place] 626922-08-28 06:26:00 Test Item Value Reference Range Interpretation Comments AST (test code = AST) 19 See_Comment [Auto mated message] The system which ge nerated this result transmit shaun reference range : <=37. The reference range was not used to interpr et this result as jackeline l/abnormal. [facility] [id number] 06:26:00 Test Item Value Reference Range Interpretation Comments Alk Phos (test code = Alk Phos) 92 39-136 [facility] [id number] 06:26:00 Test Item Value Reference Range Interpretation Comments Bili Total (test code = Bili Total) 0.3 0.2-1.3 [facility] [id number] 06:26:00 Test Item Value Reference Range Interpretation Comments AGAP (test code = AGAP) 8.1 10.0-20.0 [facility] [id number] 06:26:00 Test Item Value Reference Range Interpretation Comments B/C Ratio (test code = B/C Ratio) 18 1 6-25 [place] 626922-08-28 06:26:00 Test Item Value Reference Range Interpretation Comments Globulin (test code = Globulin) 3.8 2.7-4.2 [facility] [id number] 06:26:00 Test Item Value Reference Range Interpretation Comments A/G Ratio (test code = A/G Ratio) 0.9 1 0.7-1.6 [facility]2022-08-28 06:26:00 Test Item Value Reference Range Interpretation Comments eGFR (test code = eGFR) 95 [facility]XxmvddzOFMDJKOZFI3446-25-95 06:26:00 Test Item Value Reference Range Interpretation Comments WBC (test code = WBC) 7.6 3.7-10.4 [place] 107532-08-28 06:26:00 Test Item Value Reference Range Interpretation Comments RBC (test code = RBC) 4.38 4.20-5.40 [place] 107532-08-28 06:26:00 Test Item Value Reference Range Interpretation Comments Hgb (test code = Hgb) 13.1 12.0-16.0 [place] 107532-08-28 06:26:00 Test Item Value Reference Range Interpretation Comments Hct (test code = Hct) 39.4 36.0-48.0 [place] 107532-08-28 06:26:00 Test Item Value Reference Range Interpretation Comments MCV (test code = MCV) 90.0 80.0-98.0 [facility] [id number] 06:26:00 Test Item Value Reference Range Interpretation Comments MCH (test code = MCH) 29.9 pg 27.0-31.0 [facility] PasoAjpwuhiBSLLINUQFV1462-70-18 06:26:00 Test Item Value Reference Range Interpretation Comments MCHC (test code = MCHC) 33.2 32.0-36.0 [facility] PasoWnnrkgnNDBPJENKJZ7848-90-05 06:26:00 Test Item Value Reference Range Interpretation Comments RDW (test code = RDW) 13.2 11.5-14.5 [facility] PasoPysqjhnKGIEAGTUVM5693-38-79 06:26:00 Test Item Value Reference Range Interpretation Comments Platelet (test code = Platelet) 176 133-450 [facility] PasoZlmrpvaXJQXGNIEWD8301-43-45 06:26:00 Test Item Value Reference Range Interpretation Comments MCH (test code = MCH) 29.9 pg 27.0-31.0 [place] 107532-08-28 06:26:00 Test Item Value Reference Range Interpretation Comments MPV (test code = MPV) 10.0 7.4-10.4 [facility] PasoYsdkgaxVYLKUOAXQP5599-78-76 06:26:00 Test Item Value Reference Range Interpretation Comments Segs (test code = Segs) 58.0 45.0-75.0 [place] 107532-08-28 06:26:00 Test Item Value Reference Range Interpretation Comments Lymphocytes (test code = Lymphocytes) 30.2 20.0-40.0 [place] 107532-08-28 06:26:00 Test Item Value Reference Range Interpretation Comments Monocytes (test code = Monocytes) 7.8 2.0-12.0 [place] 107532-08-28 06:26:00 Test Item Value Reference Range Interpretation Comments Eosinophils (test code = 3.7 See_Comment [A utomated message] The Eosinophils) system which ge nerated this result tra nsmitted reference range : <=4.0. The reference r lily was not used to int erpret this result as normal/abnormal . [place] 107532-08-28 06:26:00 Test Item Value Reference Range Interpretation Comments Basophils (test code = 0.3 See_Comment [Aut omated message] The Basophils) system which ge nerated this result tra nsmitted reference range : <=1.0. The reference r lily was not used to int erpret this result as normal/abnormal . [facility] PasoStwjrrcTNPRVXSORL4706-63-82 06:26:00 Test Item Value Reference Range Interpretation Comments Neutrophils # (test code = Neutrophils 4.4 1.5-8.1 #) [facility] PasoVqqjsqzZPOWOKXVYP6525-67-72 06:26:00 Test Item Value Reference Range Interpretation Comments Lymphocytes # (test code = Lymphocytes 2.3 1.0-5.5 #) [place] 107532-08-28 06:26:00 Test Item Value Reference Range Interpretation Comments Monocytes # (test code 0.6 See_Comment [Aut omated message] The = Monocytes #) system which generated this result tra nsmitted reference range : <=0.8. The reference r lily was not used to int erpret this result as normal/abnormal . [facility] PasoTkwryyfLSGKSURYWZ7463-28-63 06:26:00 Test Item Value Reference Range Interpretation Comments Eosinophils # (test code 0.3 See_Comment [A utomated message] The = Eosinophils #) system [facility] h generated this result tra nsmitted reference range : <=0.5. The reference r lily was not used to int erpret this result as normal/abnormal . [id number] 06:26:00 Test Item Value Reference Range Interpretation Comments MCHC (test code = MCHC) 33.2 32.0-36.0 [facility]awTxknxmzIKYOWRTTBT5602-29-25 06:26:00 Test Item Value Reference Range Interpretation Comments RDW (test code = RDW) 13.2 11.5-14.5 [facility] [id number] 06:26:00 Test Item Value Reference Range Interpretation Comments HS Troponin I Baseline (test code = HS 46 Troponin I Baseline) [facility] [id number] 06:26:00 Test Item Value Reference Range Interpretation Comments Glucose Lvl (test code = Glucose Lvl) 122 70-99 [facility]2022-08-28 06:26:00 Test Item Value Reference Range Interpretation Comments BUN (test code = BUN) 12 7-22 [facility]2022-08-28 06:26:00 Test Item Value Reference Range Interpretation Comments Creatinine Lvl (test code = Creatinine 0.66 0.50-1.40 Lvl) [facility] [id number] 06:26:00 Test Item Value Reference Range Interpretation Comments Sodium Lvl (test code = Sodium Lvl) 140 135-145 [facility]2022-08-28 06:26:00 Test Item Value Reference Range Interpretation Comments Potassium Lvl (test code = Potassium 4.1 3.5-5.1 Lvl) [facility]2022-08-28 06:26:00 Test Item Value Reference Range Interpretation Comments Chloride Lvl (test code = Chloride Lvl) 109 95-109 [facility]2022-08-28 06:26:00 Test Item Value Reference Range Interpretation Comments CO2 (test code = CO2) 27 -32 [facility]2022-08-28 06:26:00 Test Item Value Reference Range Interpretation Comments Calcium Lvl (test code = Calcium Lvl) 9.3 8.5-10.5 [facility]2022-08-28 06:26:00 Test Item Value Reference Range Interpretation Comments Total Protein (test code = Total 7.4 6.4-8.4 Protein) [place] 626922-08-28 06:26:00 Test Item Value Reference Range Interpretation Comments Albumin Lvl (test code = Albumin Lvl) 3.6 3.5-5.0 [place] 626922-08-28 06:26:00 Test Item Value Reference Range Interpretation Comments ALT (test code = ALT) 19 See_Comment [Auto mated message] The system which ge nerated this result transmit shaun reference range : <=65. The reference range was not used to interpr et this result as jackeline l/abnormal. [facility] [id number] 06:26:00 Test Item Value Reference Range Interpretation Comments AST (test code = AST) 19 See_Comment [Auto mated message] The system which ge nerated this result transmit shaun reference range : <=37. The reference range was not used to interpr et this result as jackeline l/abnormal. [facility] [id number] 06:26:00 Test Item Value Reference Range Interpretation Comments Alk Phos (test code = Alk Phos) 92 39-136 [facility] [id number] 06:26:00 Test Item Value Reference Range Interpretation Comments Bili Total (test code = Bili Total) 0.3 0.2-1.3 [facility] PasoKgfujkpIYACIGVYWE3066-40-45 06:26:00 Test Item Value Reference Range Interpretation Comments Platelet (test code = Platelet) 176 133-450 [facility] [id number] 06:26:00 Test Item Value Reference Range Interpretation Comments AGAP (test code = AGAP) 8.1 10.0-20.0 [facility] [id number] 06:26:00 Test Item Value Reference Range Interpretation Comments B/C Ratio (test code = B/C Ratio) 18 1 6-25 [facility] [id number] 06:26:00 Test Item Value Reference Range Interpretation Comments Globulin (test code = Globulin) 3.8 2.7-4.2 [facility] [id number] 06:26:00 Test Item Value Reference Range Interpretation Comments A/G Ratio (test code = A/G Ratio) 0.9 1 0.7-1.6 [facility] [id number] 06:26:00 Test Item Value Reference Range Interpretation Comments eGFR (test code = eGFR) 95 [facility] PasoCjsfklmSZQPMUXFCS1749-12-24 06:26:00 Test Item Value Reference Range Interpretation Comments WBC (test code = WBC) 7.6 3.7-10.4 [facility] PasoKflggzlASTHMRFXWY4511-91-85 06:26:00 Test Item Value Reference Range Interpretation Comments RBC (test code = RBC) 4.38 4.20-5.40 [facility] PasoTnfjjxaQPCKFQCYSG2651-45-21 06:26:00 Test Item Value Reference Range Interpretation Comments Hgb (test code = Hgb) 13.1 12.0-16.0 [facility] PasoXauhdtjBWESUPVQSC0809-24-48 06:26:00 Test Item Value Reference Range Interpretation Comments Hct (test code = Hct) 39.4 36.0-48.0 [facility] PasoXgetfbrUNDEULALGK5247-12-15 06:26:00 Test Item Value Reference Range Interpretation Comments MCV (test code = MCV) 90.0 80.0-98.0 [facility] PasoGmfosamMCYNSNOYAD1725-29-02 06:26:00 Test Item Value Reference Range Interpretation Comments MCH (test code = MCH) 29.9 pg 27.0-31.0 [facility] [id number] 06:26:00 Test Item Value Reference Range Interpretation Comments MCHC (test code = MCHC) 33.2 32.0-36.0 [facility] PasoKsgnhcbNDRVAGHZNL5305-46-52 06:26:00 Test Item Value Reference Range Interpretation Comments RDW (test code = RDW) 13.2 11.5-14.5 [facility] PasoQocngflQHUZGFOUWY4217-76-28 06:26:00 Test Item Value Reference Range Interpretation Comments Platelet (test code = Platelet) 176 133-450 [facility] PasoJyvstvwTFHFUDMACJ7966-62-89 06:26:00 Test Item Value Reference Range Interpretation Comments MPV (test code = MPV) 10.0 7.4-10.4 [facility] PasoJgnrnanKEGQTCXTLK0814-65-03 06:26:00 Test Item Value Reference Range Interpretation Comments Segs (test code = Segs) 58.0 45.0-75.0 [facility] PasoDsjbxjmUENWWOVEYZ9120-92-86 06:26:00 Test Item Value Reference Range Interpretation Comments Lymphocytes (test code = Lymphocytes) 30.2 20.0-40.0 [facility] PasoOanyppzWVDDSJIRHC9161-17-45 06:26:00 Test Item Value Reference Range Interpretation Comments Monocytes (test code = Monocytes) 7.8 2.0-12.0 [place] [address]-08-28 06:26:00 Test Item Value Reference Range Interpretation Comments Eosinophils (test code = 3.7 See_Comment [A utomated message] The Eosinophils) system which ge nerated this result tra nsmitted reference range : <=4.0. The reference r lily was not used to int erpret this result as normal/abnormal . [place] 107532-08-28 06:26:00 Test Item Value Reference Range Interpretation Comments Basophils (test code = 0.3 See_Comment [Aut omated message] The Basophils) system which ge nerated this result tra nsmitted reference range : <=1.0. The reference r lily was not used to int erpret this result as normal/abnormal . [place] 107532-08-28 06:26:00 Test Item Value Reference Range Interpretation Comments Neutrophils # (test code = Neutrophils 4.4 1.5-8.1 #) [place] [address]-08-28 06:26:00 Test Item Value Reference Range Interpretation Comments Lymphocytes # (test code = Lymphocytes 2.3 1.0-5.5 #) [place] [address]-08-28 06:26:00 Test Item Value Reference Range Interpretation Comments Monocytes # (test code 0.6 See_Comment [Aut omated message] The = Monocytes #) system which generated this result tra nsmitted reference range : <=0.8. The reference r lily was not used to int erpret this result as normal/abnormal . [place] 107532-08-28 06:26:00 Test Item Value Reference Range Interpretation Comments Eosinophils # (test code 0.3 See_Comment [A utomated message] The = Eosinophils #) system whic h generated this result tra nsmitted reference range : <=0.5. The reference r lily was not used to int erpret this result as normal/abnormal . [place] 107532-08-28 06:26:00 Test Item Value Reference Range Interpretation Comments MPV (test code = MPV) 10.0 7.4-10.4 [place] 107532-08-28 06:26:00 Test Item Value Reference Range Interpretation Comments Segs (test code = Segs) 58.0 45.0-75.0 [facility] [id number] 06:26:00 Test Item Value Reference Range Interpretation Comments HS Troponin I Baseline (test code = HS 46 Troponin I Baseline) [facility] CampusGykhhluAVGIWMJEFA3629-39-38 06:26:00 Test Item Value Reference Range Interpretation Comments Lymphocytes (test code = Lymphocytes) 30.2 20.0-40.0 [facility] [id number] 06:26:00 Test Item Value Reference Range Interpretation Comments Glucose Lvl (test code = Glucose Lvl) 122 70-99 [facility]2022-08-28 06:26:00 Test Item Value Reference Range Interpretation Comments BUN (test code = BUN) 12 - [facility]2022-08-28 06:26:00 Test Item Value Reference Range Interpretation Comments Creatinine Lvl (test code = Creatinine 0.66 0.50-1.40 Lvl) [facility]2022-08-28 06:26:00 Test Item Value Reference Range Interpretation Comments Sodium Lvl (test code = Sodium Lvl) 140 135-145 [facility]2022-08-28 06:26:00 Test Item Value Reference Range Interpretation Comments Potassium Lvl (test code = Potassium 4.1 3.5-5.1 Lvl) [facility]2022-08-28 06:26:00 Test Item Value Reference Range Interpretation Comments Chloride Lvl (test code = Chloride Lvl) 109 95-109 [facility]2022-08-28 06:26:00 Test Item Value Reference Range Interpretation Comments CO2 (test code = CO2) 27 24-32 [facility]2022-08-28 06:26:00 Test Item Value Reference Range Interpretation Comments Calcium Lvl (test code = Calcium Lvl) 9.3 8.5-10.5 [facility]2022-08-28 06:26:00 Test Item Value Reference Range Interpretation Comments Total Protein (test code = Total 7.4 6.4-8.4 Protein) [facility]2022-08-28 06:26:00 Test Item Value Reference Range Interpretation Comments Albumin Lvl (test code = Albumin Lvl) 3.6 3.5-5.0 [facility] [id number] 06:26:00 Test Item Value Reference Range Interpretation Comments ALT (test code = ALT) 19 See_Comment [Auto mated message] The system which ge nerated this result transmit shaun reference range : <=65. The reference range was not used to interpr et this result as jackeline l/abnormal. [facility] [id number] 06:26:00 Test Item Value Reference Range Interpretation Comments AST (test code = AST) 19 See_Comment [Auto mated message] The system which ge nerated this result transmit shaun reference range : <=37. The reference range was not used to interpr et this result as jackeline l/abnormal. [facility] [id number] 06:26:00 Test Item Value Reference Range Interpretation Comments Alk Phos (test code = Alk Phos) 92 39-136 [facility] [id number] 06:26:00 Test Item Value Reference Range Interpretation Comments Bili Total (test code = Bili Total) 0.3 0.2-1.3 [facility] [id number] 06:26:00 Test Item Value Reference Range Interpretation Comments AGAP (test code = AGAP) 8.1 10.0-20.0 [facility] [id number] 06:26:00 Test Item Value Reference Range Interpretation Comments B/C Ratio (test code = B/C Ratio) 18 1 6-25 [facility] [id number] 06:26:00 Test Item Value Reference Range Interpretation Comments Globulin (test code = Globulin) 3.8 2.7-4.2 [facility] [id number] 06:26:00 Test Item Value Reference Range Interpretation Comments A/G Ratio (test code = A/G Ratio) 0.9 1 0.7-1.6 [facility] [id number] 06:26:00 Test Item Value Reference Range Interpretation Comments eGFR (test code = eGFR) 95 [facility] CampusUbeazykOYTYRJOWFZ6393-99-52 06:26:00 Test Item Value Reference Range Interpretation Comments WBC (test code = WBC) 7.6 3.7-10.4 [facility]ownOcrlbjdUFKNOMPNXU2621-37-74 06:26:00 Test Item Value Reference Range Interpretation Comments RBC (test code = RBC) 4.38 4.20-5.40 [place] 107532-08-28 06:26:00 Test Item Value Reference Range Interpretation Comments Hgb (test code = Hgb) 13.1 12.0-16.0 [place] 107532-08-28 06:26:00 Test Item Value Reference Range Interpretation Comments Hct (test code = Hct) 39.4 36.0-48.0 [facility] PasoJmrocxcFYNUUDZBZF8854-28-63 06:26:00 Test Item Value Reference Range Interpretation Comments MCV (test code = MCV) 90.0 80.0-98.0 [facility] PasoKtfllbzBLRIJVMUMQ9845-33-81 06:26:00 Test Item Value Reference Range Interpretation Comments MCH (test code = MCH) 29.9 pg 27.0-31.0 [place] 107532-08-28 06:26:00 Test Item Value Reference Range Interpretation Comments MCHC (test code = MCHC) 33.2 32.0-36.0 [facility] PasoZsrjpimUBPPTBZVKJ2570-92-66 06:26:00 Test Item Value Reference Range Interpretation Comments RDW (test code = RDW) 13.2 11.5-14.5 [facility] PasoIebcbgiKHSENTFFSY3224-93-96 06:26:00 Test Item Value Reference Range Interpretation Comments Platelet (test code = Platelet) 176 133-450 [facility] PasoUreyvqeNQRRHPFQYA2120-89-38 06:26:00 Test Item Value Reference Range Interpretation Comments MPV (test code = MPV) 10.0 7.4-10.4 [facility] PasoOdcssjmIZYENLFOXJ4912-56-07 06:26:00 Test Item Value Reference Range Interpretation Comments Segs (test code = Segs) 58.0 45.0-75.0 [facility] PasoChbvlsxBUWSEFQOLP7095-52-43 06:26:00 Test Item Value Reference Range Interpretation Comments Lymphocytes (test code = Lymphocytes) 30.2 20.0-40.0 [place] 107532-08-28 06:26:00 Test Item Value Reference Range Interpretation Comments Monocytes (test code = Monocytes) 7.8 2.0-12.0 [place] 107532-08-28 06:26:00 Test Item Value Reference Range Interpretation Comments Eosinophils (test code = 3.7 See_Comment [A utomated message] The Eosinophils) system which ge nerated this result tra nsmitted reference range : <=4.0. The reference r lily was not used to int erpret this result as normal/abnormal . [facility] PasoOeywhtkSEMQXUSKET2745-92-94 06:26:00 Test Item Value Reference Range Interpretation Comments Basophils (test code = 0.3 See_Comment [Aut omated message] The Basophils) system which ge nerated this result tra nsmitted reference range : <=1.0. The reference r lily was not used to int erpret this result as normal/abnormal . [facility] PasoIfmvhjlYJPMYVJTOF5616-61-23 06:26:00 Test Item Value Reference Range Interpretation Comments Neutrophils # (test code = Neutrophils 4.4 1.5-8.1 #) [facility] PasoEqjnoctCHRCLIQNIM1568-75-04 06:26:00 Test Item Value Reference Range Interpretation Comments Lymphocytes # (test code = Lymphocytes 2.3 1.0-5.5 #) [facility] PasoJwfmqsiVJTXOFYEKR3430-28-46 06:26:00 Test Item Value Reference Range Interpretation Comments Monocytes # (test code 0.6 See_Comment [Aut omated message] The = Monocytes #) system which generated this result tra nsmitted reference range : <=0.8. The reference r lily was not used to int erpret this result as normal/abnormal . [facility] PasoEcrdbaiBOCSCBKAUA5576-73-15 06:26:00 Test Item Value Reference Range Interpretation Comments Eosinophils # (test code 0.3 See_Comment [A utomated message] The = Eosinophils #) system [facility] h generated this result tra nsmitted reference range : <=0.5. The reference r lily was not used to int erpret this result as normal/abnormal . [facility] PasoBmphfbpNWBITNWJIJ6593-97-76 06:26:00 Test Item Value Reference Range Interpretation Comments Monocytes (test code = Monocytes) 7.8 2.0-12.0 [facility] PasoOxlhchzPEDEUXPZVO8432-36-11 06:26:00 Test Item Value Reference Range Interpretation Comments Eosinophils (test code = 3.7 See_Comment [A utomated message] The Eosinophils) system which ge nerated this result tra nsmitted reference range : <=4.0. The reference r lily was not used to int erpret this result as normal/abnormal . [facility]GznszwmXWDKJGJZGX8264-38-89 06:26:00 Test Item Value Reference Range Interpretation Comments Basophils (test code = 0.3 See_Comment [Aut omated message] The Basophils) system which ge nerated this result tra nsmitted reference range : <=1.0. The reference r lily was not used to int erpret this result as normal/abnormal . [facility] [id number] 06:26:00 Test Item Value Reference Range Interpretation Comments HS Troponin I Baseline (test code = HS 46 Troponin I Baseline) [facility] [id number] 06:26:00 Test Item Value Reference Range Interpretation Comments Glucose Lvl (test code = Glucose Lvl) 122 70-99 [facility]2022-08-28 06:26:00 Test Item Value Reference Range Interpretation Comments BUN (test code = BUN) 12 - [facility]2022-08-28 06:26:00 Test Item Value Reference Range Interpretation Comments Creatinine Lvl (test code = Creatinine 0.66 0.50-1.40 Lvl) [facility]2022-08-28 06:26:00 Test Item Value Reference Range Interpretation Comments Sodium Lvl (test code = Sodium Lvl) 140 135-145 [facility]2022-08-28 06:26:00 Test Item Value Reference Range Interpretation Comments Potassium Lvl (test code = Potassium 4.1 3.5-5.1 Lvl) [facility]2022-08-28 06:26:00 Test Item Value Reference Range Interpretation Comments Chloride Lvl (test code = Chloride Lvl) 109 95-109 [facility]2022-08-28 06:26:00 Test Item Value Reference Range Interpretation Comments CO2 (test code = CO2) 27 24-32 [place] 626922-08-28 06:26:00 Test Item Value Reference Range Interpretation Comments Calcium Lvl (test code = Calcium Lvl) 9.3 8.5-10.5 [place] 626922-08-28 06:26:00 Test Item Value Reference Range Interpretation Comments Total Protein (test code = Total 7.4 6.4-8.4 Protein) [facility]2022-08-28 06:26:00 Test Item Value Reference Range Interpretation Comments Albumin Lvl (test code = Albumin Lvl) 3.6 3.5-5.0 [facility] [id number] 06:26:00 Test Item Value Reference Range Interpretation Comments ALT (test code = ALT) 19 See_Comment [Auto mated message] The system which ge nerated this result transmit shaun reference range : <=65. The reference range was not used to interpr et this result as jackeline l/abnormal. [facility] [id number] 06:26:00 Test Item Value Reference Range Interpretation Comments AST (test code = AST) 19 See_Comment [Auto mated message] The system which ge nerated this result transmit shaun reference range : <=37. The reference range was not used to interpr et this result as jackeline l/abnormal. [facility] [employer] [id number] 06:26:00 Test Item Value Reference Range Interpretation Comments Alk Phos (test code = Alk Phos) 92 39-136 [facility] [employer] [id number] 06:26:00 Test Item Value Reference Range Interpretation Comments Bili Total (test code = Bili Total) 0.3 0.2-1.3 [facility] [id number] 06:26:00 Test Item Value Reference Range Interpretation Comments AGAP (test code = AGAP) 8.1 10.0-20.0 [facility] [id number] 06:26:00 Test Item Value Reference Range Interpretation Comments B/C Ratio (test code = B/C Ratio) 18 1 6-25 [facility] [id number] 06:26:00 Test Item Value Reference Range Interpretation Comments Globulin (test code = Globulin) 3.8 2.7-4.2 [facility] [id number] 06:26:00 Test Item Value Reference Range Interpretation Comments A/G Ratio (test code = A/G Ratio) 0.9 1 0.7-1.6 [facility] [id number] 06:26:00 Test Item Value Reference Range Interpretation Comments eGFR (test code = eGFR) 95 [facility]yjmHSSZIAJGSB4262-96-75 06:26:00 Test Item Value Reference Range Interpretation Comments WBC (test code = WBC) 7.6 3.7-10.4 [facility] WbujsuiIBQEAYOGIW6229-82-30 06:26:00 Test Item Value Reference Range Interpretation Comments RBC (test code = RBC) 4.38 4.20-5.40 [place] 107532-08-28 06:26:00 Test Item Value Reference Range Interpretation Comments Hgb (test code = Hgb) 13.1 12.0-16.0 [place] 107532-08-28 06:26:00 Test Item Value Reference Range Interpretation Comments Hct (test code = Hct) 39.4 36.0-48.0 [facility]oLfjcslsSDLHCGCWRX5951-17-82 06:26:00 Test Item Value Reference Range Interpretation Comments MCV (test code = MCV) 90.0 80.0-98.0 [place] 107532-08-28 06:26:00 Test Item Value Reference Range Interpretation Comments MCH (test code = MCH) 29.9 pg 27.0-31.0 [place] 107532-08-28 06:26:00 Test Item Value Reference Range Interpretation Comments MCHC (test code = MCHC) 33.2 32.0-36.0 [facility] PasoIxcigiqHQMAGYOFOB1409-68-01 06:26:00 Test Item Value Reference Range Interpretation Comments RDW (test code = RDW) 13.2 11.5-14.5 [facility] PasoZuwklecXDRDCQGILD0078-75-60 06:26:00 Test Item Value Reference Range Interpretation Comments Platelet (test code = Platelet) 176 133-450 [facility] PasoZnpofwlKTKKMMAPXK9750-67-83 06:26:00 Test Item Value Reference Range Interpretation Comments MPV (test code = MPV) 10.0 7.4-10.4 [place] 107532-08-28 06:26:00 Test Item Value Reference Range Interpretation Comments Segs (test code = Segs) 58.0 45.0-75.0 [place] [address]-08-28 06:26:00 Test Item Value Reference Range Interpretation Comments Lymphocytes (test code = Lymphocytes) 30.2 20.0-40.0 [place] 107532-08-28 06:26:00 Test Item Value Reference Range Interpretation Comments Monocytes (test code = Monocytes) 7.8 2.0-12.0 [place] 107532-08-28 06:26:00 Test Item Value Reference Range Interpretation Comments Eosinophils (test code = 3.7 See_Comment [A utomated message] The Eosinophils) system which ge nerated this result tra nsmitted reference range : <=4.0. The reference r lily was not used to int erpret this result as normal/abnormal . [facility] [id number] 06:26:00 Test Item Value Reference Range Interpretation Comments Basophils (test code = 0.3 See_Comment [Aut omated message] The Basophils) system which ge nerated this result tra nsmitted reference range : <=1.0. The reference r lily was not used to int erpret this result as normal/abnormal . [facility] [id number] 06:26:00 Test Item Value Reference Range Interpretation Comments Neutrophils # (test code = Neutrophils 4.4 1.5-8.1 #) [place] 107532-08-28 06:26:00 Test Item Value Reference Range Interpretation Comments Lymphocytes # (test code = Lymphocytes 2.3 1.0-5.5 #) [facility] PasoIudhzhgIUJCBJPMQS4649-26-30 06:26:00 Test Item Value Reference Range Interpretation Comments Monocytes # (test code 0.6 See_Comment [Aut omated message] The = Monocytes #) system which generated this result tra nsmitted reference range : <=0.8. The reference r lily was not used to int erpret this result as normal/abnormal . [facility] PasoJmlbmjeNSOERNPPJC7869-99-73 06:26:00 Test Item Value Reference Range Interpretation Comments Eosinophils # (test code 0.3 See_Comment [A utomated message] The = Eosinophils #) system [facility] h generated this result tra nsmitted reference range : <=0.5. The reference r lily was not used to int erpret this result as normal/abnormal . [facility] PasoMihbegqHXDMKSBVWG4915-72-32 06:26:00 Test Item Value Reference Range Interpretation Comments Neutrophils # (test code = Neutrophils 4.4 1.5-8.1 #) [facility] PasoIbiaufuOEHXCLKDEH4404-67-00 06:26:00 Test Item Value Reference Range Interpretation Comments Lymphocytes # (test code = Lymphocytes 2.3 1.0-5.5 #) [facility] PasoCeinateVUIUMFZUKH3341-44-33 06:26:00 Test Item Value Reference Range Interpretation Comments Monocytes # (test code 0.6 See_Comment [Aut omated message] The = Monocytes #) system which generated this result tra nsmitted reference range : <=0.8. The reference r lily was not used to int erpret this result as normal/abnormal . [facility] [id number] 06:26:00 Test Item Value Reference Range Interpretation Comments HS Troponin I Baseline (test code = HS 46 Troponin I Baseline) [facility] [id number] 06:26:00 Test Item Value Reference Range Interpretation Comments Glucose Lvl (test code = Glucose Lvl) 122 70-99 [facility] [id number] 06:26:00 Test Item Value Reference Range Interpretation Comments BUN (test code = BUN) 12 7-22 [facility] [id number] 06:26:00 Test Item Value Reference Range Interpretation Comments Creatinine Lvl (test code = Creatinine 0.66 0.50-1.40 Lvl) [facility] [id number] 06:26:00 Test Item Value Reference Range Interpretation Comments Sodium Lvl (test code = Sodium Lvl) 140 135-145 [facility] [id number] 06:26:00 Test Item Value Reference Range Interpretation Comments Potassium Lvl (test code = Potassium 4.1 3.5-5.1 Lvl) [facility] [id number] 06:26:00 Test Item Value Reference Range Interpretation Comments Chloride Lvl (test code = Chloride Lvl) 109 95-109 [facility] [id number] 06:26:00 Test Item Value Reference Range Interpretation Comments CO2 (test code = CO2) 27 24-32 [facility] [id number] 06:26:00 Test Item Value Reference Range Interpretation Comments Calcium Lvl (test code = Calcium Lvl) 9.3 8.5-10.5 [facility] [id number] 06:26:00 Test Item Value Reference Range Interpretation Comments Total Protein (test code = Total 7.4 6.4-8.4 Protein) [facility] [id number] 06:26:00 Test Item Value Reference Range Interpretation Comments Albumin Lvl (test code = Albumin Lvl) 3.6 3.5-5.0 [facility] [place] [id number] 06:26:00 Test Item Value Reference Range Interpretation Comments ALT (test code = ALT) 19 See_Comment [Auto mated message] The system which ge nerated this result transmit shaun reference range : <=65. The reference range was not used to interpr et this result as jackeline l/abnormal. [facility] [id number] 06:26:00 Test Item Value Reference Range Interpretation Comments AST (test code = AST) 19 See_Comment [Auto mated message] The system which ge nerated this result transmit shaun reference range : <=37. The reference range was not used to interpr et this result as jackeline l/abnormal. [facility] [id number] 06:26:00 Test Item Value Reference Range Interpretation Comments Alk Phos (test code = Alk Phos) 92 39-136 [place] 626922-08-28 06:26:00 Test Item Value Reference Range Interpretation Comments Bili Total (test code = Bili Total) 0.3 0.2-1.3 [place] 626922-08-28 06:26:00 Test Item Value Reference Range Interpretation Comments AGAP (test code = AGAP) 8.1 10.0-20.0 [facility] [id number] 06:26:00 Test Item Value Reference Range Interpretation Comments B/C Ratio (test code = B/C Ratio) 18 1 6-25 [place] [address]-08-28 06:26:00 Test Item Value Reference Range Interpretation Comments Globulin (test code = Globulin) 3.8 2.7-4.2 [facility] [id number] 06:26:00 Test Item Value Reference Range Interpretation Comments A/G Ratio (test code = A/G Ratio) 0.9 1 0.7-1.6 [facility] [id number] 06:26:00 Test Item Value Reference Range Interpretation Comments eGFR (test code = eGFR) 95 [place] 107532-08-28 06:26:00 Test Item Value Reference Range Interpretation Comments WBC (test code = WBC) 7.6 3.7-10.4 [place] 107532-08-28 06:26:00 Test Item Value Reference Range Interpretation Comments RBC (test code = RBC) 4.38 4.20-5.40 [facility] PasoZicokglIEOXOOGLBD1016-35-28 06:26:00 Test Item Value Reference Range Interpretation Comments Hgb (test code = Hgb) 13.1 12.0-16.0 [facility] PasoJlhxwvyFLDAXAAECQ3730-07-74 06:26:00 Test Item Value Reference Range Interpretation Comments Hct (test code = Hct) 39.4 36.0-48.0 [facility] PasoHsroujiLZGLZWLBTN7986-36-09 06:26:00 Test Item Value Reference Range Interpretation Comments MCV (test code = MCV) 90.0 80.0-98.0 [facility] [id number] 06:26:00 Test Item Value Reference Range Interpretation Comments MCH (test code = MCH) 29.9 pg 27.0-31.0 [facility] PasoCxxiahyHWDKCHROLI8303-43-79 06:26:00 Test Item Value Reference Range Interpretation Comments MCHC (test code = MCHC) 33.2 32.0-36.0 [facility] PasoJaacwfgIKZPGWJSKW3668-37-05 06:26:00 Test Item Value Reference Range Interpretation Comments RDW (test code = RDW) 13.2 11.5-14.5 [facility] PasoWbcjelgMUNEKJZXJC8220-62-91 06:26:00 Test Item Value Reference Range Interpretation Comments Platelet (test code = Platelet) 176 133-450 [facility] PasoJricfphWJGDFDSQLB1089-87-13 06:26:00 Test Item Value Reference Range Interpretation Comments MPV (test code = MPV) 10.0 7.4-10.4 [facility] PasoVgvdvriGYWBVFQWEQ1022-70-93 06:26:00 Test Item Value Reference Range Interpretation Comments Segs (test code = Segs) 58.0 45.0-75.0 [facility] PasoPbpwkgdRJTMOHGUFD4541-19-75 06:26:00 Test Item Value Reference Range Interpretation Comments Lymphocytes (test code = Lymphocytes) 30.2 20.0-40.0 [facility] PasoHdumqpmZXRCISWOOK2015-15-56 06:26:00 Test Item Value Reference Range Interpretation Comments Monocytes (test code = Monocytes) 7.8 2.0-12.0 [facility] [id number] 06:26:00 Test Item Value Reference Range Interpretation Comments Eosinophils (test code = 3.7 See_Comment [A utomated message] The Eosinophils) system which ge nerated this result tra nsmitted reference range : <=4.0. The reference r lily was not used to int erpret this result as normal/abnormal . [id number] 06:26:00 Test Item Value Reference Range Interpretation Comments Basophils (test code = 0.3 See_Comment [Aut omated message] The Basophils) system which ge nerated this result tra nsmitted reference range : <=1.0. The reference r lily was not used to int erpret this result as normal/abnormal . [facility]awErvfbcaUZVAPXZQDE6362-27-88 06:26:00 Test Item Value Reference Range Interpretation Comments Neutrophils # (test code = Neutrophils 4.4 1.5-8.1 #) [facility] PasoKixwpkuLFKGLKAPKU6809-93-85 06:26:00 Test Item Value Reference Range Interpretation Comments Lymphocytes # (test code = Lymphocytes 2.3 1.0-5.5 #) [facility] PasoQykegcdVMZBUVKABQ8354-90-88 06:26:00 Test Item Value Reference Range Interpretation Comments Monocytes # (test code 0.6 See_Comment [Aut omated message] The = Monocytes #) system which generated this result tra nsmitted reference range : <=0.8. The reference r lily was not used to int erpret this result as normal/abnormal . [facility] PasoYgcrbpsVTZOXJJUDC8552-07-09 06:26:00 Test Item Value Reference Range Interpretation Comments Eosinophils # (test code 0.3 See_Comment [A utomated message] The = Eosinophils #) system [employer] generated this result tra nsmitted reference range : <=0.5. The reference r lily was not used to int erpret this result as normal/abnormal . [facility] PasoCduxcxyGOANMKDEQC2415-43-89 06:26:00 Test Item Value Reference Range Interpretation Comments Eosinophils # (test code 0.3 See_Comment [A utomated message] The = Eosinophils #) system [employer] generated this result tra nsmitted reference range : <=0.5. The reference r lily was not used to int erpret this result as normal/abnormal . [facility] [id number] 06:26:00 Test Item Value Reference Range Interpretation Comments HS Troponin I Baseline (test code = HS 46 Troponin I Baseline) [facility] CampusCHEM [id number] 06:26:00 Test Item Value Reference Range Interpretation Comments Glucose Lvl (test code = Glucose Lvl) 122 70-99 [place] 626922-08-28 06:26:00 Test Item Value Reference Range Interpretation Comments BUN (test code = BUN) 12 7-22 [place] 626922-08-28 06:26:00 Test Item Value Reference Range Interpretation Comments Creatinine Lvl (test code = Creatinine 0.66 0.50-1.40 Lvl) [place] 626922-08-28 06:26:00 Test Item Value Reference Range Interpretation Comments Sodium Lvl (test code = Sodium Lvl) 140 135-145 [place] 626922-08-28 06:26:00 Test Item Value Reference Range Interpretation Comments Potassium Lvl (test code = Potassium 4.1 3.5-5.1 Lvl) [place] 626922-08-28 06:26:00 Test Item Value Reference Range Interpretation Comments Chloride Lvl (test code = Chloride Lvl) 109 95-109 [place] 626922-08-28 06:26:00 Test Item Value Reference Range Interpretation Comments CO2 (test code = CO2) 27 24-32 [place] 626922-08-28 06:26:00 Test Item Value Reference Range Interpretation Comments Calcium Lvl (test code = Calcium Lvl) 9.3 8.5-10.5 [place] 626922-08-28 06:26:00 Test Item Value Reference Range Interpretation Comments Total Protein (test code = Total 7.4 6.4-8.4 Protein) [place] 626922-08-28 06:26:00 Test Item Value Reference Range Interpretation Comments Albumin Lvl (test code = Albumin Lvl) 3.6 3.5-5.0 [place] 626922-08-28 06:26:00 Test Item Value Reference Range Interpretation Comments ALT (test code = ALT) 19 See_Comment [Auto mated message] The system which ge nerated this result transmit shaun reference range : <=65. The reference range was not used to interpr et this result as jackeline l/abnormal. [place] 626922-08-28 06:26:00 Test Item Value Reference Range Interpretation Comments AST (test code = AST) 19 See_Comment [Auto mated message] The system which ge nerated this result transmit shaun reference range : <=37. The reference range was not used to interpr et this result as jackeline l/abnormal. [place] 626922-08-28 06:26:00 Test Item Value Reference Range Interpretation Comments Alk Phos (test code = Alk Phos) 92 39-136 [place] 626922-08-28 06:26:00 Test Item Value Reference Range Interpretation Comments Bili Total (test code = Bili Total) 0.3 0.2-1.3 [place] 626922-08-28 06:26:00 Test Item Value Reference Range Interpretation Comments AGAP (test code = AGAP) 8.1 10.0-20.0 [place] [address]-08-28 06:26:00 Test Item Value Reference Range Interpretation Comments B/C Ratio (test code = B/C Ratio) 18 1 6-25 [place] 626922-08-28 06:26:00 Test Item Value Reference Range Interpretation Comments Globulin (test code = Globulin) 3.8 2.7-4.2 [place] 626922-08-28 06:26:00 Test Item Value Reference Range Interpretation Comments A/G Ratio (test code = A/G Ratio) 0.9 1 0.7-1.6 [place] 626922-08-28 06:26:00 Test Item Value Reference Range Interpretation Comments eGFR (test code = eGFR) 95 [facility] PasoPmxgdovOLHDLLRILG2521-87-61 06:26:00 Test Item Value Reference Range Interpretation Comments WBC (test code = WBC) 7.6 3.7-10.4 [place] 107532-08-28 06:26:00 Test Item Value Reference Range Interpretation Comments RBC (test code = RBC) 4.38 4.20-5.40 [place] 107532-08-28 06:26:00 Test Item Value Reference Range Interpretation Comments Hgb (test code = Hgb) 13.1 12.0-16.0 [place] [address]-08-28 06:26:00 Test Item Value Reference Range Interpretation Comments Hct (test code = Hct) 39.4 36.0-48.0 [place] 107532-08-28 06:26:00 Test Item Value Reference Range Interpretation Comments MCV (test code = MCV) 90.0 80.0-98.0 [place] 107532-08-28 06:26:00 Test Item Value Reference Range Interpretation Comments MCH (test code = MCH) 29.9 pg 27.0-31.0 [place] 107532-08-28 06:26:00 Test Item Value Reference Range Interpretation Comments MCHC (test code = MCHC) 33.2 32.0-36.0 [place] 107532-08-28 06:26:00 Test Item Value Reference Range Interpretation Comments RDW (test code = RDW) 13.2 11.5-14.5 [place] 107532-08-28 06:26:00 Test Item Value Reference Range Interpretation Comments Platelet (test code = Platelet) 176 133-450 [place] 107532-08-28 06:26:00 Test Item Value Reference Range Interpretation Comments MPV (test code = MPV) 10.0 7.4-10.4 [place] 107532-08-28 06:26:00 Test Item Value Reference Range Interpretation Comments Segs (test code = Segs) 58.0 45.0-75.0 [place] 107532-08-28 06:26:00 Test Item Value Reference Range Interpretation Comments Lymphocytes (test code = Lymphocytes) 30.2 20.0-40.0 [place] 107532-08-28 06:26:00 Test Item Value Reference Range Interpretation Comments Monocytes (test code = Monocytes) 7.8 2.0-12.0 [place] 107532-08-28 06:26:00 Test Item Value Reference Range Interpretation Comments Eosinophils (test code = 3.7 See_Comment [A utomated message] The Eosinophils) system which ge nerated this result tra nsmitted reference range : <=4.0. The reference r lily was not used to int erpret this result as normal/abnormal . [place] 107532-08-28 06:26:00 Test Item Value Reference Range Interpretation Comments Basophils (test code = 0.3 See_Comment [Aut omated message] The Basophils) system which ge nerated this result tra nsmitted reference range : <=1.0. The reference r lily was not used to int erpret this result as normal/abnormal . [facility]HvjigzsROESKNUFXL8263-63-22 06:26:00 Test Item Value Reference Range Interpretation Comments Neutrophils # (test code = Neutrophils 4.4 1.5-8.1 #) [facility]awLifseqjXCQQUCWUZB4381-71-09 06:26:00 Test Item Value Reference Range Interpretation Comments Lymphocytes # (test code = Lymphocytes 2.3 1.0-5.5 #) [facility]aginawBkjumbdMJIBOHAOWZ7429-84-18 06:26:00 Test Item Value Reference Range Interpretation Comments Monocytes # (test code 0.6 See_Comment [Aut omated message] The = Monocytes #) system which generated this result tra nsmitted reference range : <=0.8. The reference r lily was not used to int erpret this result as normal/abnormal . [facility] PasoAjbnnbbPNDXBPJPHB2722-98-03 06:26:00 Test Item Value Reference Range Interpretation Comments Eosinophils # (test code 0.3 See_Comment [A utomated message] The = Eosinophils #) system whic h generated this result tra nsmitted reference range : <=0.5. The reference r lily was not used to int erpret this result as normal/abnormal . [facility] [id number] 06:26:00 Test Item Value Reference Range Interpretation Comments HS Troponin I Baseline (test code = HS 46 Troponin I Baseline) [facility]2022-08-28 06:26:00 Test Item Value Reference Range Interpretation Comments Glucose Lvl (test code = Glucose Lvl) 122 70-99 [facility]2022-08-28 06:26:00 Test Item Value Reference Range Interpretation Comments BUN (test code = BUN) 12 7-22 [facility]2022-08-28 06:26:00 Test Item Value Reference Range Interpretation Comments Creatinine Lvl (test code = Creatinine 0.66 0.50-1.40 Lvl) [facility]2022-08-28 06:26:00 Test Item Value Reference Range Interpretation Comments Sodium Lvl (test code = Sodium Lvl) 140 135-145 [facility]2022-08-28 06:26:00 Test Item Value Reference Range Interpretation Comments Potassium Lvl (test code = Potassium 4.1 3.5-5.1 Lvl) [place] 626922-08-28 06:26:00 Test Item Value Reference Range Interpretation Comments Chloride Lvl (test code = Chloride Lvl) 109 95-109 [facility]TabSquareJEFF[place] [id number] 06:26:00 Test Item Value Reference Range Interpretation Comments CO2 (test code = CO2) 27 24-32 [place] 626922-08-28 06:26:00 Test Item Value Reference Range Interpretation Comments Calcium Lvl (test code = Calcium Lvl) 9.3 8.5-10.5 [facility]ownTabSquareJEFFRE[place] [id number] 06:26:00 Test Item Value Reference Range Interpretation Comments Total Protein (test code = Total 7.4 6.4-8.4 Protein) [place] 626922-08-28 06:26:00 Test Item Value Reference Range Interpretation Comments Albumin Lvl (test code = Albumin Lvl) 3.6 3.5-5.0 [facility] [id number] 06:26:00 Test Item Value Reference Range Interpretation Comments ALT (test code = ALT) 19 See_Comment [Auto mated message] The system which ge nerated this result transmit shaun reference range : <=65. The reference range was not used to interpr et this result as jackeline l/abnormal. [facility] [id number] 06:26:00 Test Item Value Reference Range Interpretation Comments AST (test code = AST) 19 See_Comment [Auto mated message] The system which ge nerated this result transmit shaun reference range : <=37. The reference range was not used to interpr et this result as jackeline l/abnormal. [facility] [id number] 06:26:00 Test Item Value Reference Range Interpretation Comments Alk Phos (test code = Alk Phos) 92 39-136 [facility] [id number] 06:26:00 Test Item Value Reference Range Interpretation Comments Bili Total (test code = Bili Total) 0.3 0.2-1.3 [facility] [id number] 06:26:00 Test Item Value Reference Range Interpretation Comments AGAP (test code = AGAP) 8.1 10.0-20.0 [facility] [id number] 06:26:00 Test Item Value Reference Range Interpretation Comments B/C Ratio (test code = B/C Ratio) 18 1 6-25 [facility]2022-08-28 06:26:00 Test Item Value Reference Range Interpretation Comments Globulin (test code = Globulin) 3.8 2.7-4.2 [facility]2022-08-28 06:26:00 Test Item Value Reference Range Interpretation Comments A/G Ratio (test code = A/G Ratio) 0.9 1 0.7-1.6 [facility]2022-08-28 06:26:00 Test Item Value Reference Range Interpretation Comments eGFR (test code = eGFR) 95 [facility]HjfysnzKBPTKUTOMW9735-63-84 06:26:00 Test Item Value Reference Range Interpretation Comments WBC (test code = WBC) 7.6 3.7-10.4 [place] 107532-08-28 06:26:00 Test Item Value Reference Range Interpretation Comments RBC (test code = RBC) 4.38 4.20-5.40 [facility] PasoOfpmcfvYVPIKGUHMP2151-22-97 06:26:00 Test Item Value Reference Range Interpretation Comments Hgb (test code = Hgb) 13.1 12.0-16.0 [facility] PasoAjczitfFZGJXAJTXJ2065-41-89 06:26:00 Test Item Value Reference Range Interpretation Comments Hct (test code = Hct) 39.4 36.0-48.0 [facility] PasoGztpyluFWPQAXJYRC4899-92-55 06:26:00 Test Item Value Reference Range Interpretation Comments MCV (test code = MCV) 90.0 80.0-98.0 [facility] PasoWzqkbgiBJFBGABKED6986-18-63 06:26:00 Test Item Value Reference Range Interpretation Comments MCH (test code = MCH) 29.9 pg 27.0-31.0 [place] 107532-08-28 06:26:00 Test Item Value Reference Range Interpretation Comments MCHC (test code = MCHC) 33.2 32.0-36.0 [facility] PasoMehavoeFKQZDIPNRQ1693-47-50 06:26:00 Test Item Value Reference Range Interpretation Comments RDW (test code = RDW) 13.2 11.5-14.5 [facility] PasoWxqrzljQKFQXCOLCM6812-27-66 06:26:00 Test Item Value Reference Range Interpretation Comments Platelet (test code = Platelet) 176 133-450 [facility] PasoTauqbazUMEIHTNTEY2543-14-83 06:26:00 Test Item Value Reference Range Interpretation Comments MPV (test code = MPV) 10.0 7.4-10.4 [facility] PasoLausjeoOPSGVQCABD9464-98-76 06:26:00 Test Item Value Reference Range Interpretation Comments Segs (test code = Segs) 58.0 45.0-75.0 [facility] PasoGeyiqeeKGTIFGDAEM6969-47-67 06:26:00 Test Item Value Reference Range Interpretation Comments Lymphocytes (test code = Lymphocytes) 30.2 20.0-40.0 [facility] PasoOqpkgldFOOQRXUKTX3562-09-04 06:26:00 Test Item Value Reference Range Interpretation Comments Monocytes (test code = Monocytes) 7.8 2.0-12.0 [facility] PasoRvsarhxDGZWHFHFCM7355-56-37 06:26:00 Test Item Value Reference Range Interpretation Comments Eosinophils (test code = 3.7 See_Comment [A utomated message] The Eosinophils) system which ge nerated this result tra nsmitted reference range : <=4.0. The reference r lily was not used to int erpret this result as normal/abnormal . [facility] PasoZbghsngSLQPVCTKSG7000-71-20 06:26:00 Test Item Value Reference Range Interpretation Comments Basophils (test code = 0.3 See_Comment [Aut omated message] The Basophils) system which ge nerated this result tra nsmitted reference range : <=1.0. The reference r lily was not used to int erpret this result as normal/abnormal . [facility] PasoPbwesiySQJDNKLEAF1985-01-73 06:26:00 Test Item Value Reference Range Interpretation Comments Neutrophils # (test code = Neutrophils 4.4 1.5-8.1 #) [facility] PasoMvmjznuRRQLPOFCUG1089-14-54 06:26:00 Test Item Value Reference Range Interpretation Comments Lymphocytes # (test code = Lymphocytes 2.3 1.0-5.5 #) [place] 107532-08-28 06:26:00 Test Item Value Reference Range Interpretation Comments Monocytes # (test code 0.6 See_Comment [Aut omated message] The = Monocytes #) system which generated this result tra nsmitted reference range : <=0.8. The reference r lily was not used to int erpret this result as normal/abnormal . [facility] PasoMdruigwZHYYXKIAPD3930-86-58 06:26:00 Test Item Value Reference Range Interpretation Comments Eosinophils # (test code 0.3 See_Comment [A utomated message] The = Eosinophils #) system [employer] h generated this result tra nsmitted reference range : <=0.5. The reference r lily was not used to int erpret this result as normal/abnormal . [facility] [id number] 06:26:00 Test Item Value Reference Range Interpretation Comments HS Troponin I Baseline (test code = HS 46 Troponin I Baseline) [facility] [id number] 06:26:00 Test Item Value Reference Range Interpretation Comments Glucose Lvl (test code = Glucose Lvl) 122 70-99 [facility] [id number] 06:26:00 Test Item Value Reference Range Interpretation Comments BUN (test code = BUN) 12 - [facility] [id number] 06:26:00 Test Item Value Reference Range Interpretation Comments Creatinine Lvl (test code = Creatinine 0.66 0.50-1.40 Lvl) [facility] [id number] 06:26:00 Test Item Value Reference Range Interpretation Comments Sodium Lvl (test code = Sodium Lvl) 140 135-145 [facility] [id number] 06:26:00 Test Item Value Reference Range Interpretation Comments Potassium Lvl (test code = Potassium 4.1 3.5-5.1 Lvl) [facility] [id number] 06:26:00 Test Item Value Reference Range Interpretation Comments Chloride Lvl (test code = Chloride Lvl) 109 95-109 [facility] [id number] 06:26:00 Test Item Value Reference Range Interpretation Comments CO2 (test code = CO2) 27 -32 [facility] [id number] 06:26:00 Test Item Value Reference Range Interpretation Comments Calcium Lvl (test code = Calcium Lvl) 9.3 8.5-10.5 [facility] [id number] 06:26:00 Test Item Value Reference Range Interpretation Comments Total Protein (test code = Total 7.4 6.4-8.4 Protein) [facility] [id number] 06:26:00 Test Item Value Reference Range Interpretation Comments Albumin Lvl (test code = Albumin Lvl) 3.6 3.5-5.0 [facility] [id number] 06:26:00 Test Item Value Reference Range Interpretation Comments ALT (test code = ALT) 19 See_Comment [Auto mated message] The system which ge nerated this result transmit shaun reference range : <=65. The reference range was not used to interpr et this result as jackeline l/abnormal. [facility] [id number] 06:26:00 Test Item Value Reference Range Interpretation Comments AST (test code = AST) 19 See_Comment [Auto mated message] The system which ge nerated this result transmit shaun reference range : <=37. The reference range was not used to interpr et this result as jackeline l/abnormal. [facility] [id number] 06:26:00 Test Item Value Reference Range Interpretation Comments Alk Phos (test code = Alk Phos) 92 39-136 [facility] [id number] 06:26:00 Test Item Value Reference Range Interpretation Comments Bili Total (test code = Bili Total) 0.3 0.2-1.3 [facility] [id number] 06:26:00 Test Item Value Reference Range Interpretation Comments AGAP (test code = AGAP) 8.1 10.0-20.0 [facility] [id number] 06:26:00 Test Item Value Reference Range Interpretation Comments B/C Ratio (test code = B/C Ratio) 18 1 6-25 [facility] [id number] 06:26:00 Test Item Value Reference Range Interpretation Comments Globulin (test code = Globulin) 3.8 2.7-4.2 [facility] [id number] 06:26:00 Test Item Value Reference Range Interpretation Comments A/G Ratio (test code = A/G Ratio) 0.9 1 0.7-1.6 [facility] [id number] 06:26:00 Test Item Value Reference Range Interpretation Comments eGFR (test code = eGFR) 95 [facility] CampusSfgegmeUZTHAWTHED7559-77-50 06:26:00 Test Item Value Reference Range Interpretation Comments WBC (test code = WBC) 7.6 3.7-10.4 [facility]ownOyacyruJSPZYTKPVV0320-78-08 06:26:00 Test Item Value Reference Range Interpretation Comments RBC (test code = RBC) 4.38 4.20-5.40 [facility] PasoPlpihnsOACUZBLUEA9626-82-32 06:26:00 Test Item Value Reference Range Interpretation Comments Hgb (test code = Hgb) 13.1 12.0-16.0 [place] 107532-08-28 06:26:00 Test Item Value Reference Range Interpretation Comments Hct (test code = Hct) 39.4 36.0-48.0 [facility] PasoZusottsAXRSJHNYLK7621-10-17 06:26:00 Test Item Value Reference Range Interpretation Comments MCV (test code = MCV) 90.0 80.0-98.0 [place] 107532-08-28 06:26:00 Test Item Value Reference Range Interpretation Comments MCH (test code = MCH) 29.9 pg 27.0-31.0 [facility] PasoCgizafhTPXGVQWAFI7165-42-91 06:26:00 Test Item Value Reference Range Interpretation Comments MCHC (test code = MCHC) 33.2 32.0-36.0 [place] 107532-08-28 06:26:00 Test Item Value Reference Range Interpretation Comments RDW (test code = RDW) 13.2 11.5-14.5 [place] 107532-08-28 06:26:00 Test Item Value Reference Range Interpretation Comments Platelet (test code = Platelet) 176 133-450 [facility] [id number] 06:26:00 Test Item Value Reference Range Interpretation Comments MPV (test code = MPV) 10.0 7.4-10.4 [place] 107532-08-28 06:26:00 Test Item Value Reference Range Interpretation Comments Segs (test code = Segs) 58.0 45.0-75.0 [place] 107532-08-28 06:26:00 Test Item Value Reference Range Interpretation Comments Lymphocytes (test code = Lymphocytes) 30.2 20.0-40.0 [place] 107532-08-28 06:26:00 Test Item Value Reference Range Interpretation Comments Monocytes (test code = Monocytes) 7.8 2.0-12.0 [place] 107532-08-28 06:26:00 Test Item Value Reference Range Interpretation Comments Eosinophils (test code = 3.7 See_Comment [A utomated message] The Eosinophils) system which ge nerated this result tra nsmitted reference range : <=4.0. The reference r lily was not used to int erpret this result as normal/abnormal . [facility] CampusKkackkiYWCYRSBBOV9403-87-86 06:26:00 Test Item Value Reference Range Interpretation Comments Basophils (test code = 0.3 See_Comment [Aut omated message] The Basophils) system which ge nerated this result tra nsmitted reference range : <=1.0. The reference r lily was not used to int erpret this result as normal/abnormal . [facility]gwloajQSQIRIEWEZ9742-74-10 06:26:00 Test Item Value Reference Range Interpretation Comments Neutrophils # (test code = Neutrophils 4.4 1.5-8.1 #) [facility]awGpyeoplBWLYPMVQQQ6776-67-76 06:26:00 Test Item Value Reference Range Interpretation Comments Lymphocytes # (test code = Lymphocytes 2.3 1.0-5.5 #) [facility] PasoJfycjuhJKHCFYLDVJ2417-06-25 06:26:00 Test Item Value Reference Range Interpretation Comments Monocytes # (test code 0.6 See_Comment [Aut omated message] The = Monocytes #) system which generated this result tra nsmitted reference range : <=0.8. The reference r lily was not used to int erpret this result as normal/abnormal . [facility] PasoLylypplFRCIGQIFUU4359-54-34 06:26:00 Test Item Value Reference Range Interpretation Comments Eosinophils # (test code 0.3 See_Comment [A utomated message] The = Eosinophils #) system whic h generated this result tra nsmitted reference range : <=0.5. The reference r lily was not used to int erpret this result as normal/abnormal . [facility]CARD[facility] [id number] 06:26:00 Test Item Value Reference Range Interpretation Comments HS Troponin I Baseline (test code = HS 46 Troponin I Baseline) [facility] [id number] 06:26:00 Test Item Value Reference Range Interpretation Comments Glucose Lvl (test code = Glucose Lvl) 122 70-99 [facility] [id number] 06:26:00 Test Item Value Reference Range Interpretation Comments BUN (test code = BUN) 12 7-22 [facility] [id number] 06:26:00 Test Item Value Reference Range Interpretation Comments Creatinine Lvl (test code = Creatinine 0.66 0.50-1.40 Lvl) [facility]2022-08-28 06:26:00 Test Item Value Reference Range Interpretation Comments Sodium Lvl (test code = Sodium Lvl) 140 135-145 [facility] [id number] 06:26:00 Test Item Value Reference Range Interpretation Comments Potassium Lvl (test code = Potassium 4.1 3.5-5.1 Lvl) [facility]2022-08-28 06:26:00 Test Item Value Reference Range Interpretation Comments Chloride Lvl (test code = Chloride Lvl) 109 95-109 [facility]2022-08-28 06:26:00 Test Item Value Reference Range Interpretation Comments CO2 (test code = CO2) 27 24-32 [facility]2022-08-28 06:26:00 Test Item Value Reference Range Interpretation Comments Calcium Lvl (test code = Calcium Lvl) 9.3 8.5-10.5 [facility]2022-08-28 06:26:00 Test Item Value Reference Range Interpretation Comments Total Protein (test code = Total 7.4 6.4-8.4 Protein) [facility]2022-08-28 06:26:00 Test Item Value Reference Range Interpretation Comments Albumin Lvl (test code = Albumin Lvl) 3.6 3.5-5.0 [facility]2022-08-28 06:26:00 Test Item Value Reference Range Interpretation Comments ALT (test code = ALT) 19 See_Comment [Auto mated message] The system which ge nerated this result transmit shaun reference range : <=65. The reference range was not used to interpr et this result as jackeline l/abnormal. [facility] [id number] 06:26:00 Test Item Value Reference Range Interpretation Comments HS Troponin I Baseline (test code = HS 46 Troponin I Baseline) [facility] [id number] 06:26:00 Test Item Value Reference Range Interpretation Comments Glucose Lvl (test code = Glucose Lvl) 122 70-99 [facility] [id number] 06:26:00 Test Item Value Reference Range Interpretation Comments BUN (test code = BUN) 12 - [place] 626922-08-28 06:26:00 Test Item Value Reference Range Interpretation Comments Creatinine Lvl (test code = Creatinine 0.66 0.50-1.40 Lvl) [place] 626922-08-28 06:26:00 Test Item Value Reference Range Interpretation Comments Sodium Lvl (test code = Sodium Lvl) 140 135-145 [place] 626922-08-28 06:26:00 Test Item Value Reference Range Interpretation Comments Potassium Lvl (test code = Potassium 4.1 3.5-5.1 Lvl) [place] 626922-08-28 06:26:00 Test Item Value Reference Range Interpretation Comments Chloride Lvl (test code = Chloride Lvl) 109 95-109 [place] 626922-08-28 06:26:00 Test Item Value Reference Range Interpretation Comments AST (test code = AST) 19 See_Comment [Auto mated message] The system which ge nerated this result transmit shaun reference range : <=37. The reference range was not used to interpr et this result as jackeline l/abnormal. [place] 626922-08-28 06:26:00 Test Item Value Reference Range Interpretation Comments CO2 (test code = CO2) 27 24-32 [place] 626922-08-28 06:26:00 Test Item Value Reference Range Interpretation Comments Calcium Lvl (test code = Calcium Lvl) 9.3 8.5-10.5 [place] 626922-08-28 06:26:00 Test Item Value Reference Range Interpretation Comments Total Protein (test code = Total 7.4 6.4-8.4 Protein) [place] 626922-08-28 06:26:00 Test Item Value Reference Range Interpretation Comments Albumin Lvl (test code = Albumin Lvl) 3.6 3.5-5.0 [place] 626922-08-28 06:26:00 Test Item Value Reference Range Interpretation Comments ALT (test code = ALT) 19 See_Comment [Auto mated message] The system which ge nerated this result transmit shaun reference range : <=65. The reference range was not used to interpr et this result as jackeline l/abnormal. [place] 626922-08-28 06:26:00 Test Item Value Reference Range Interpretation Comments AST (test code = AST) 19 See_Comment [Auto mated message] The system which ge nerated this result transmit shaun reference range : <=37. The reference range was not used to interpr et this result as jackeline l/abnormal. [facility]2022-08-28 06:26:00 Test Item Value Reference Range Interpretation Comments Alk Phos (test code = Alk Phos) 92 39-136 [facility] [id number] 06:26:00 Test Item Value Reference Range Interpretation Comments Bili Total (test code = Bili Total) 0.3 0.2-1.3 [facility]2022-08-28 06:26:00 Test Item Value Reference Range Interpretation Comments AGAP (test code = AGAP) 8.1 10.0-20.0 [facility]2022-08-28 06:26:00 Test Item Value Reference Range Interpretation Comments B/C Ratio (test code = B/C Ratio) 18 1 6-25 [facility]2022-08-28 06:26:00 Test Item Value Reference Range Interpretation Comments Alk Phos (test code = Alk Phos) 92 39-136 [facility]2022-08-28 06:26:00 Test Item Value Reference Range Interpretation Comments Globulin (test code = Globulin) 3.8 2.7-4.2 [facility]2022-08-28 06:26:00 Test Item Value Reference Range Interpretation Comments A/G Ratio (test code = A/G Ratio) 0.9 1 0.7-1.6 [facility]2022-08-28 06:26:00 Test Item Value Reference Range Interpretation Comments eGFR (test code = eGFR) 95 [place] 107532-08-28 06:26:00 Test Item Value Reference Range Interpretation Comments WBC (test code = WBC) 7.6 3.7-10.4 [place] 107532-08-28 06:26:00 Test Item Value Reference Range Interpretation Comments RBC (test code = RBC) 4.38 4.20-5.40 [place] 107532-08-28 06:26:00 Test Item Value Reference Range Interpretation Comments Hgb (test code = Hgb) 13.1 12.0-16.[address]08-28 06:26:00 Test Item Value Reference Range Interpretation Comments Hct (test code = Hct) 39.4 36.0-48.0 [place] 107532-08-28 06:26:00 Test Item Value Reference Range Interpretation Comments MCV (test code = MCV) 90.0 80.0-98.0 [facility] PasoXfppehzYHYBMHNQWW0649-79-82 06:26:00 Test Item Value Reference Range Interpretation Comments MCH (test code = MCH) 29.9 pg 27.0-31.0 [facility] PasoHxyzxzcBUMEFKOUXH1840-35-59 06:26:00 Test Item Value Reference Range Interpretation Comments MCHC (test code = MCHC) 33.2 32.0-36.0 [facility]2022-08-28 06:26:00 Test Item Value Reference Range Interpretation Comments Bili Total (test code = Bili Total) 0.3 0.2-1.3 [facility] PasoWokjeyyRCMJXWYNGP6636-68-83 06:26:00 Test Item Value Reference Range Interpretation Comments RDW (test code = RDW) 13.2 11.5-14.5 [facility] PasoXsceaaeUNZPQHACHD8701-06-59 06:26:00 Test Item Value Reference Range Interpretation Comments Platelet (test code = Platelet) 176 133-450 [facility] PasoUzcjwnpNPIMTFQSKN0407-73-61 06:26:00 Test Item Value Reference Range Interpretation Comments MPV (test code = MPV) 10.0 7.4-10.4 [facility] PasoPjjorlyUTYFBJISQK5507-77-98 06:26:00 Test Item Value Reference Range Interpretation Comments Segs (test code = Segs) 58.0 45.0-75.0 [facility] PasoItvetrkWMQSYFFHKR3689-10-51 06:26:00 Test Item Value Reference Range Interpretation Comments Lymphocytes (test code = Lymphocytes) 30.2 20.0-40.0 [place] 107532-08-28 06:26:00 Test Item Value Reference Range Interpretation Comments Monocytes (test code = Monocytes) 7.8 2.0-12.0 [place] 107532-08-28 06:26:00 Test Item Value Reference Range Interpretation Comments Eosinophils (test code = 3.7 See_Comment [A utomated message] The Eosinophils) system which ge nerated this result tra nsmitted reference range : <=4.0. The reference r lily was not used to int erpret this result as normal/abnormal . [facility] CampusFrvjwllFPYFEOZZBD0347-40-05 06:26:00 Test Item Value Reference Range Interpretation Comments Basophils (test code = 0.3 See_Comment [Aut omated message] The Basophils) system which ge nerated this result tra nsmitted reference range : <=1.0. The reference r lily was not used to int erpret this result as normal/abnormal . [place] 107532-08-28 06:26:00 Test Item Value Reference Range Interpretation Comments Neutrophils # (test code = Neutrophils 4.4 1.5-8.1 #) [place] 107532-08-28 06:26:00 Test Item Value Reference Range Interpretation Comments Lymphocytes # (test code = Lymphocytes 2.3 1.0-5.5 #) [facility] [id number] 06:26:00 Test Item Value Reference Range Interpretation Comments AGAP (test code = AGAP) 8.1 10.0-20.0 [place] 107532-08-28 06:26:00 Test Item Value Reference Range Interpretation Comments Monocytes # (test code 0.6 See_Comment [Aut omated message] The = Monocytes #) system which generated this result tra nsmitted reference range : <=0.8. The reference r lily was not used to int erpret this result as normal/abnormal . [place] 107532-08-28 06:26:00 Test Item Value Reference Range Interpretation Comments Eosinophils # (test code 0.3 See_Comment [A utomated message] The = Eosinophils #) system whic h generated this result tra nsmitted reference range : <=0.5. The reference r lily was not used to int erpret this result as normal/abnormal . [facility] [id number] 06:26:00 Test Item Value Reference Range Interpretation Comments B/C Ratio (test code = B/C Ratio) 18 1 6-25 [place] 626922-08-28 06:26:00 Test Item Value Reference Range Interpretation Comments Globulin (test code = Globulin) 3.8 2.7-4.2 [place] 626922-08-28 06:26:00 Test Item Value Reference Range Interpretation Comments A/G Ratio (test code = A/G Ratio) 0.9 1 0.7-1.6 [facility]2022-08-28 06:26:00 Test Item Value Reference Range Interpretation Comments eGFR (test code = eGFR) 95 [facility] PasoGjlikdpCFAKJMHAXJ8219-45-55 06:26:00 Test Item Value Reference Range Interpretation Comments WBC (test code = WBC) 7.6 3.7-10.4 [facility] PasoJytwvtpXAZPPDDEHK5214-65-66 06:26:00 Test Item Value Reference Range Interpretation Comments RBC (test code = RBC) 4.38 4.20-5.40 [facility] PasoZzqyykxESEAFMEWDT6022-27-17 06:26:00 Test Item Value Reference Range Interpretation Comments Hgb (test code = Hgb) 13.1 12.0-16.0 [facility] PasoXuldymgARDOZTXYGO0553-03-07 06:26:00 Test Item Value Reference Range Interpretation Comments Hct (test code = Hct) 39.4 36.0-48.0 [facility] PasoWzczjhnLOWMMEDBXI6686-61-09 06:26:00 Test Item Value Reference Range Interpretation Comments MCV (test code = MCV) 90.0 80.0-98.0 [facility] PasoRrkopuqRJGLFLRCOO8146-35-86 06:26:00 Test Item Value Reference Range Interpretation Comments MCH (test code = MCH) 29.9 pg 27.0-31.0 [facility] PasoOsfornxWNCCJFQZHI9482-76-10 06:26:00 Test Item Value Reference Range Interpretation Comments MCHC (test code = MCHC) 33.2 32.0-36.0 [facility] PasoAsvrlofMUQGYUWIQH6016-24-90 06:26:00 Test Item Value Reference Range Interpretation Comments RDW (test code = RDW) 13.2 11.5-14.5 [place] 107532-08-28 06:26:00 Test Item Value Reference Range Interpretation Comments Platelet (test code = Platelet) 176 133-450 [facility] PasoVjtinqoSZADGFMJTJ5297-68-72 06:26:00 Test Item Value Reference Range Interpretation Comments MPV (test code = MPV) 10.0 7.4-10.4 [place] 107532-08-28 06:26:00 Test Item Value Reference Range Interpretation Comments Segs (test code = Segs) 58.0 45.0-75.0 [facility] PasoSeignkaRWELGDWJGG7038-86-37 06:26:00 Test Item Value Reference Range Interpretation Comments Lymphocytes (test code = Lymphocytes) 30.2 20.0-40.0 [facility] PasoCuwatvwKRYQZVOFDG7228-33-50 06:26:00 Test Item Value Reference Range Interpretation Comments Monocytes (test code = Monocytes) 7.8 2.0-12.0 [facility] PasoZiihbbkUQKLNMMFXG0062-34-12 06:26:00 Test Item Value Reference Range Interpretation Comments Eosinophils (test code = 3.7 See_Comment [A utomated message] The Eosinophils) system which ge nerated this result tra nsmitted reference range : <=4.0. The reference r lily was not used to int erpret this result as normal/abnormal . [facility] PasoGbtrskhVBRLVHTWLB2844-94-91 06:26:00 Test Item Value Reference Range Interpretation Comments Basophils (test code = 0.3 See_Comment [Aut omated message] The Basophils) system which ge nerated this result tra nsmitted reference range : <=1.0. The reference r lily was not used to int erpret this result as normal/abnormal . [facility] PasoDesmgaeQHDSHRSLKT2779-30-90 06:26:00 Test Item Value Reference Range Interpretation Comments Neutrophils # (test code = Neutrophils 4.4 1.5-8.1 #) [facility] PasoVvnnccoMSKHNBQSEX1274-62-00 06:26:00 Test Item Value Reference Range Interpretation Comments Lymphocytes # (test code = Lymphocytes 2.3 1.0-5.5 #) [facility] PasoBihgbcxJFPBYDNTZQ4757-70-41 06:26:00 Test Item Value Reference Range Interpretation Comments Monocytes # (test code 0.6 See_Comment [Aut omated message] The = Monocytes #) system which generated this result tra nsmitted reference range : <=0.8. The reference r lily was not used to int erpret this result as normal/abnormal . [facility] PasoFzvssgtNFZBRGHFXL2799-81-24 06:26:00 Test Item Value Reference Range Interpretation Comments Eosinophils # (test code 0.3 See_Comment [A utomated message] The = Eosinophils #) system whic h generated this result tra nsmitted reference range : <=0.5. The reference r lily was not used to int erpret this result as normal/abnormal . [facility]2022-08-28 06:26:00 Test Item Value Reference Range Interpretation Comments HS Troponin I Baseline (test code = HS 46 Troponin I Baseline) [facility]2022-08-28 06:26:00 Test Item Value Reference Range Interpretation Comments Glucose Lvl (test code = Glucose Lvl) 122 70-99 [place] 626922-08-28 06:26:00 Test Item Value Reference Range Interpretation Comments BUN (test code = BUN) 12 7-22 [facility]2022-08-28 06:26:00 Test Item Value Reference Range Interpretation Comments Creatinine Lvl (test code = Creatinine 0.66 0.50-1.40 Lvl) [facility]2022-08-28 06:26:00 Test Item Value Reference Range Interpretation Comments Sodium Lvl (test code = Sodium Lvl) 140 135-145 [facility]2022-08-28 06:26:00 Test Item Value Reference Range Interpretation Comments Potassium Lvl (test code = Potassium 4.1 3.5-5.1 Lvl) [facility]2022-08-28 06:26:00 Test Item Value Reference Range Interpretation Comments Chloride Lvl (test code = Chloride Lvl) 109 95-109 [facility]2022-08-28 06:26:00 Test Item Value Reference Range Interpretation Comments CO2 (test code = CO2) 27 24-32 [facility]2022-08-28 06:26:00 Test Item Value Reference Range Interpretation Comments Calcium Lvl (test code = Calcium Lvl) 9.3 8.5-10.5 [facility]2022-08-28 06:26:00 Test Item Value Reference Range Interpretation Comments Total Protein (test code = Total 7.4 6.4-8.4 Protein) [facility]2022-08-28 06:26:00 Test Item Value Reference Range Interpretation Comments Albumin Lvl (test code = Albumin Lvl) 3.6 3.5-5.0 [facility]2022-08-28 06:26:00 Test Item Value Reference Range Interpretation Comments ALT (test code = ALT) 19 See_Comment [Auto mated message] The system which ge nerated this result transmit shaun reference range : <=65. The reference range was not used to interpr et this result as jackeline l/abnormal. [facility]2022-08-28 06:26:00 Test Item Value Reference Range Interpretation Comments AST (test code = AST) 19 See_Comment [Auto mated message] The system which ge nerated this result transmit shaun reference range : <=37. The reference range was not used to interpr et this result as jackeline l/abnormal. [place] 626922-08-28 06:26:00 Test Item Value Reference Range Interpretation Comments Alk Phos (test code = Alk Phos) 92 39-136 [place] 626922-08-28 06:26:00 Test Item Value Reference Range Interpretation Comments Bili Total (test code = Bili Total) 0.3 0.2-1.3 [place] 626922-08-28 06:26:00 Test Item Value Reference Range Interpretation Comments AGAP (test code = AGAP) 8.1 10.0-20.0 [place] 626922-08-28 06:26:00 Test Item Value Reference Range Interpretation Comments B/C Ratio (test code = B/C Ratio) 18 1 6-25 [place] [address]-08-28 06:26:00 Test Item Value Reference Range Interpretation Comments Globulin (test code = Globulin) 3.8 2.7-4.2 [place] 626922-08-28 06:26:00 Test Item Value Reference Range Interpretation Comments A/G Ratio (test code = A/G Ratio) 0.9 1 0.7-1.6 [place] 626922-08-28 06:26:00 Test Item Value Reference Range Interpretation Comments eGFR (test code = eGFR) 95 [place] 107532-08-28 06:26:00 Test Item Value Reference Range Interpretation Comments WBC (test code = WBC) 7.6 3.7-10.4 [place] 107532-08-28 06:26:00 Test Item Value Reference Range Interpretation Comments RBC (test code = RBC) 4.38 4.20-5.40 [place] 107532-08-28 06:26:00 Test Item Value Reference Range Interpretation Comments Hgb (test code = Hgb) 13.1 12.0-16.0 [place] [address]-08-28 06:26:00 Test Item Value Reference Range Interpretation Comments Hct (test code = Hct) 39.4 36.0-48.0 [place] 107532-08-28 06:26:00 Test Item Value Reference Range Interpretation Comments MCV (test code = MCV) 90.0 80.0-98.0 [place] 107532-08-28 06:26:00 Test Item Value Reference Range Interpretation Comments MCH (test code = MCH) 29.9 pg 27.0-31.0 [place] 107532-08-28 06:26:00 Test Item Value Reference Range Interpretation Comments MCHC (test code = MCHC) 33.2 32.0-36.0 [place] 107532-08-28 06:26:00 Test Item Value Reference Range Interpretation Comments RDW (test code = RDW) 13.2 11.5-14.5 [place] 107532-08-28 06:26:00 Test Item Value Reference Range Interpretation Comments Platelet (test code = Platelet) 176 133-450 [facility] PasoPiclfumCFCOTQVDZO7177-33-75 06:26:00 Test Item Value Reference Range Interpretation Comments MPV (test code = MPV) 10.0 7.4-10.4 [place] 107532-08-28 06:26:00 Test Item Value Reference Range Interpretation Comments Segs (test code = Segs) 58.0 45.0-75.0 [facility] PasoWkejgheNHDVWDUOOV4222-73-97 06:26:00 Test Item Value Reference Range Interpretation Comments Lymphocytes (test code = Lymphocytes) 30.2 20.0-40.0 [place] 107532-08-28 06:26:00 Test Item Value Reference Range Interpretation Comments Monocytes (test code = Monocytes) 7.8 2.0-12.0 [place] [address]-08-28 06:26:00 Test Item Value Reference Range Interpretation Comments Eosinophils (test code = 3.7 See_Comment [A utomated message] The Eosinophils) system which ge nerated this result tra nsmitted reference range : <=4.0. The reference r lily was not used to int erpret this result as normal/abnormal . [facility] PasoBvkodpbDRIFRQYRZB0100-30-16 06:26:00 Test Item Value Reference Range Interpretation Comments Basophils (test code = 0.3 See_Comment [Aut omated message] The Basophils) system which ge nerated this result tra nsmitted reference range : <=1.0. The reference r lily was not used to int erpret this result as normal/abnormal . [facility] PasoCjvxeroJYBAITRPFO0171-54-45 06:26:00 Test Item Value Reference Range Interpretation Comments Neutrophils # (test code = Neutrophils 4.4 1.5-8.1 #) [facility]vecvytZBZQDZXRUV2718-46-15 06:26:00 Test Item Value Reference Range Interpretation Comments Lymphocytes # (test code = Lymphocytes 2.3 1.0-5.5 #) [facility]StspfnbFKRAETSUME9872-94-64 06:26:00 Test Item Value Reference Range Interpretation Comments Monocytes # (test code 0.6 See_Comment [Aut omated message] The = Monocytes #) system which generated this result tra nsmitted reference range : <=0.8. The reference r lily was not used to int erpret this result as normal/abnormal . [facility] PasoZrssgotOLDPSTHXRL8209-88-94 06:26:00 Test Item Value Reference Range Interpretation Comments Eosinophils # (test code 0.3 See_Comment [A utomated message] The = Eosinophils #) system whic h generated this result tra nsmitted reference range : <=0.5. The reference r lily was not used to int erpret this result as normal/abnormal . [facility]CARD[facility] YTTJPIV7034-35-66 06:26:00 Test Item Value Reference Range Interpretation Comments HS Troponin I Baseline (test code = HS 46 Troponin I Baseline) [facility] [id number] 06:26:00 Test Item Value Reference Range Interpretation Comments Glucose Lvl (test code = Glucose Lvl) 122 70-99 [facility] [id number] 06:26:00 Test Item Value Reference Range Interpretation Comments BUN (test code = BUN) 12 7-22 [facility] [id number] 06:26:00 Test Item Value Reference Range Interpretation Comments Creatinine Lvl (test code = Creatinine 0.66 0.50-1.40 Lvl) [facility]Thing[facility] [id number] 06:26:00 Test Item Value Reference Range Interpretation Comments Sodium Lvl (test code = Sodium Lvl) 140 135-145 [place] 626922-08-28 06:26:00 Test Item Value Reference Range Interpretation Comments Potassium Lvl (test code = Potassium 4.1 3.5-5.1 Lvl) [place] 626922-08-28 06:26:00 Test Item Value Reference Range Interpretation Comments Chloride Lvl (test code = Chloride Lvl) 109 95-109 [place] 626922-08-28 06:26:00 Test Item Value Reference Range Interpretation Comments CO2 (test code = CO2) 27 24-32 [place] 626922-08-28 06:26:00 Test Item Value Reference Range Interpretation Comments Calcium Lvl (test code = Calcium Lvl) 9.3 8.5-10.5 [place] [address]-08-28 06:26:00 Test Item Value Reference Range Interpretation Comments Total Protein (test code = Total 7.4 6.4-8.4 Protein) [place] [address]-08-28 06:26:00 Test Item Value Reference Range Interpretation Comments Albumin Lvl (test code = Albumin Lvl) 3.6 3.5-5.0 [place] [address]-08-28 06:26:00 Test Item Value Reference Range Interpretation Comments ALT (test code = ALT) 19 See_Comment [Auto mated message] The system which ge nerated this result transmit shaun reference range : <=65. The reference range was not used to interpr et this result as jackeline l/abnormal. [place] 626922-08-28 06:26:00 Test Item Value Reference Range Interpretation Comments AST (test code = AST) 19 See_Comment [Auto mated message] The system which ge nerated this result transmit shaun reference range : <=37. The reference range was not used to interpr et this result as jackeline l/abnormal. [place] 626922-08-28 06:26:00 Test Item Value Reference Range Interpretation Comments Alk Phos (test code = Alk Phos) 92 39-136 [place] 626922-08-28 06:26:00 Test Item Value Reference Range Interpretation Comments Bili Total (test code = Bili Total) 0.3 0.2-1.3 [place] [address]-08-28 06:26:00 Test Item Value Reference Range Interpretation Comments AGAP (test code = AGAP) 8.1 10.0-20.0 [facility]2022-08-28 06:26:00 Test Item Value Reference Range Interpretation Comments B/C Ratio (test code = B/C Ratio) 18 1 6-25 [place] 626922-08-28 06:26:00 Test Item Value Reference Range Interpretation Comments Globulin (test code = Globulin) 3.8 2.7-4.2 [place] 626922-08-28 06:26:00 Test Item Value Reference Range Interpretation Comments A/G Ratio (test code = A/G Ratio) 0.9 1 0.7-1.6 [place] 626922-08-28 06:26:00 Test Item Value Reference Range Interpretation Comments eGFR (test code = eGFR) 95 [facility] PasoLxflswgTGJVBLDUIO5376-75-19 06:26:00 Test Item Value Reference Range Interpretation Comments WBC (test code = WBC) 7.6 3.7-10.4 [place] 107532-08-28 06:26:00 Test Item Value Reference Range Interpretation Comments RBC (test code = RBC) 4.38 4.20-5.40 [facility] PasoAwrvmifMCYOTOYKRY9029-96-49 06:26:00 Test Item Value Reference Range Interpretation Comments Hgb (test code = Hgb) 13.1 12.0-16.0 [facility] PasoCpbqfvaNIVMOOHMBO0282-29-46 06:26:00 Test Item Value Reference Range Interpretation Comments Hct (test code = Hct) 39.4 36.0-48.0 [place] 107532-08-28 06:26:00 Test Item Value Reference Range Interpretation Comments MCV (test code = MCV) 90.0 80.0-98.0 [place] 107532-08-28 06:26:00 Test Item Value Reference Range Interpretation Comments MCH (test code = MCH) 29.9 pg 27.0-31.0 [place] 107532-08-28 06:26:00 Test Item Value Reference Range Interpretation Comments MCHC (test code = MCHC) 33.2 32.0-36.0 [place] 107532-08-28 06:26:00 Test Item Value Reference Range Interpretation Comments RDW (test code = RDW) 13.2 11.5-14.5 [place] 107532-08-28 06:26:00 Test Item Value Reference Range Interpretation Comments Platelet (test code = Platelet) 176 133-450 [place] 107532-08-28 06:26:00 Test Item Value Reference Range Interpretation Comments MPV (test code = MPV) 10.0 7.4-10.4 [place] 107532-08-28 06:26:00 Test Item Value Reference Range Interpretation Comments Segs (test code = Segs) 58.0 45.0-75.0 [place] 107532-08-28 06:26:00 Test Item Value Reference Range Interpretation Comments Lymphocytes (test code = Lymphocytes) 30.2 20.0-40.0 [place] [address]-08-28 06:26:00 Test Item Value Reference Range Interpretation Comments Monocytes (test code = Monocytes) 7.8 2.0-12.0 [place] 107532-08-28 06:26:00 Test Item Value Reference Range Interpretation Comments Eosinophils (test code = 3.7 See_Comment [A utomated message] The Eosinophils) system which ge nerated this result tra nsmitted reference range : <=4.0. The reference r lily was not used to int erpret this result as normal/abnormal . [facility] PasoXtansxfEYHTHPGWCZ8066-01-92 06:26:00 Test Item Value Reference Range Interpretation Comments Basophils (test code = 0.3 See_Comment [Aut omated message] The Basophils) system which ge nerated this result tra nsmitted reference range : <=1.0. The reference r lily was not used to int erpret this result as normal/abnormal . [facility] PasoWiedkpxPTKOQIYCZJ7945-47-84 06:26:00 Test Item Value Reference Range Interpretation Comments Neutrophils # (test code = Neutrophils 4.4 1.5-8.1 #) [place] 107532-08-28 06:26:00 Test Item Value Reference Range Interpretation Comments Lymphocytes # (test code = Lymphocytes 2.3 1.0-5.5 #) [place] 107532-08-28 06:26:00 Test Item Value Reference Range Interpretation Comments Monocytes # (test code 0.6 See_Comment [Aut omated message] The = Monocytes #) system which generated this result tra nsmitted reference range : <=0.8. The reference r lily was not used to int erpret this result as normal/abnormal . [facility] CampusJymxmnmDCAJXVAWDL3480-09-81 06:26:00 Test Item Value Reference Range Interpretation Comments Eosinophils # (test code 0.3 See_Comment [A utomated message] The = Eosinophils #) system CyrusOneic h generated this result tra nsmitted reference range : <=0.5. The reference r lily was not used to int erpret this result as normal/abnormal . [facility] CampusCARDIAC [id number] 06:26:00 Test Item Value Reference Range Interpretation Comments HS Troponin I Baseline (test code = HS 46 Troponin I Baseline) [facility]ownTabSquareCHEM [id number] 06:26:00 Test Item Value Reference Range Interpretation Comments Glucose Lvl (test code = Glucose Lvl) 122 70-99 [facility]2022-08-28 06:26:00 Test Item Value Reference Range Interpretation Comments BUN (test code = BUN) 12 7-22 [facility]ownTabSquareJEFFRE[place] [id number] 06:26:00 Test Item Value Reference Range Interpretation Comments Creatinine Lvl (test code = Creatinine 0.66 0.50-1.40 Lvl) [facility] CampusThingMagic [id number] 06:26:00 Test Item Value Reference Range Interpretation Comments Sodium Lvl (test code = Sodium Lvl) 140 135-145 [facility]2022-08-28 06:26:00 Test Item Value Reference Range Interpretation Comments Potassium Lvl (test code = Potassium 4.1 3.5-5.1 Lvl) [facility]ownTabSquareNOV[facility] CENTERJIBSX9279-86-83 06:26:00 Test Item Value Reference Range Interpretation Comments Chloride Lvl (test code = Chloride Lvl) 109 95-109 [facility] [id number] 06:26:00 Test Item Value Reference Range Interpretation Comments CO2 (test code = CO2) 27 24-32 [place] 626922-08-28 06:26:00 Test Item Value Reference Range Interpretation Comments Calcium Lvl (test code = Calcium Lvl) 9.3 8.5-10.5 [facility]ownTabSquareNOV[facility] MED[facility] [id number] 06:26:00 Test Item Value Reference Range Interpretation Comments Total Protein (test code = Total 7.4 6.4-8.4 Protein) [place] 626922-08-28 06:26:00 Test Item Value Reference Range Interpretation Comments Albumin Lvl (test code = Albumin Lvl) 3.6 3.5-5.0 [place] 626922-08-28 06:26:00 Test Item Value Reference Range Interpretation Comments ALT (test code = ALT) 19 See_Comment [Auto mated message] The system which ge nerated this result transmit shaun reference range : <=65. The reference range was not used to interpr et this result as jackeline l/abnormal. [place] 626922-08-28 06:26:00 Test Item Value Reference Range Interpretation Comments AST (test code = AST) 19 See_Comment [Auto mated message] The system which ge nerated this result transmit shaun reference range : <=37. The reference range was not used to interpr et this result as jackeline l/abnormal. [place] 626922-08-28 06:26:00 Test Item Value Reference Range Interpretation Comments Alk Phos (test code = Alk Phos) 92 39-136 [place] 626922-08-28 06:26:00 Test Item Value Reference Range Interpretation Comments Bili Total (test code = Bili Total) 0.3 0.2-1.3 [place] 626922-08-28 06:26:00 Test Item Value Reference Range Interpretation Comments AGAP (test code = AGAP) 8.1 10.0-20.0 [place] 626922-08-28 06:26:00 Test Item Value Reference Range Interpretation Comments B/C Ratio (test code = B/C Ratio) 18 1 6-25 [place] 626922-08-28 06:26:00 Test Item Value Reference Range Interpretation Comments Globulin (test code = Globulin) 3.8 2.7-4.2 [place] 626922-08-28 06:26:00 Test Item Value Reference Range Interpretation Comments A/G Ratio (test code = A/G Ratio) 0.9 1 0.7-1.6 [place] 626922-08-28 06:26:00 Test Item Value Reference Range Interpretation Comments eGFR (test code = eGFR) 95 [facility]oSjjjitqIIRTVUSHBV8549-42-35 06:26:00 Test Item Value Reference Range Interpretation Comments WBC (test code = WBC) 7.6 3.7-10.4 [facility] PasoHfyhkieRYAFIJSECN9321-37-32 06:26:00 Test Item Value Reference Range Interpretation Comments RBC (test code = RBC) 4.38 4.20-5.40 [place] 107532-08-28 06:26:00 Test Item Value Reference Range Interpretation Comments Hgb (test code = Hgb) 13.1 12.0-16.0 [place] 107532-08-28 06:26:00 Test Item Value Reference Range Interpretation Comments Hct (test code = Hct) 39.4 36.0-48.0 [facility] PasoZwkzhonQYRROECLIF7699-23-90 06:26:00 Test Item Value Reference Range Interpretation Comments MCV (test code = MCV) 90.0 80.0-98.0 [place] 107532-08-28 06:26:00 Test Item Value Reference Range Interpretation Comments MCH (test code = MCH) 29.9 pg 27.0-31.0 [facility] PasoTshahrjLPYHPRMEOB8318-14-96 06:26:00 Test Item Value Reference Range Interpretation Comments MCHC (test code = MCHC) 33.2 32.0-36.0 [facility] PasoPfjlmobYNOICWLSTF7333-14-28 06:26:00 Test Item Value Reference Range Interpretation Comments RDW (test code = RDW) 13.2 11.5-14.5 [facility] PasoTeaqvnwJGOAYUXLSO4967-98-53 06:26:00 Test Item Value Reference Range Interpretation Comments Platelet (test code = Platelet) 176 133-450 [facility] PasoFqjvqigPUKULOLUTB8553-66-74 06:26:00 Test Item Value Reference Range Interpretation Comments MPV (test code = MPV) 10.0 7.4-10.4 [facility] PasoTlkjhhwJVAPSEMIUD8691-87-72 06:26:00 Test Item Value Reference Range Interpretation Comments Segs (test code = Segs) 58.0 45.0-75.0 [facility] PasoGuiabctICSGIDRPQS1760-29-88 06:26:00 Test Item Value Reference Range Interpretation Comments Lymphocytes (test code = Lymphocytes) 30.2 20.0-40.0 [facility] PasoWyboawyYRULHJQIQS7162-89-51 06:26:00 Test Item Value Reference Range Interpretation Comments Monocytes (test code = Monocytes) 7.8 2.0-12.0 [facility]XlhbjdwROPTMAETCO0041-36-10 06:26:00 Test Item Value Reference Range Interpretation Comments Eosinophils (test code = 3.7 See_Comment [A utomated message] The Eosinophils) system which ge nerated this result tra nsmitted reference range : <=4.0. The reference r lily was not used to int erpret this result as normal/abnormal . [facility]awBilcuinLHFEHLAYOC1417-74-42 06:26:00 Test Item Value Reference Range Interpretation Comments Basophils (test code = 0.3 See_Comment [Aut omated message] The Basophils) system which ge nerated this result tra nsmitted reference range : <=1.0. The reference r lily was not used to int erpret this result as normal/abnormal . [facility] PasoXagarkbEQQKMNAQBI2801-12-13 06:26:00 Test Item Value Reference Range Interpretation Comments Neutrophils # (test code = Neutrophils 4.4 1.5-8.1 #) [facility] PasoCmieffaAWYLDLBUGB1259-92-53 06:26:00 Test Item Value Reference Range Interpretation Comments Lymphocytes # (test code = Lymphocytes 2.3 1.0-5.5 #) [facility] PasoUynoexrPTAORPIRZW9148-25-70 06:26:00 Test Item Value Reference Range Interpretation Comments Monocytes # (test code 0.6 See_Comment [Aut omated message] The = Monocytes #) system which generated this result tra nsmitted reference range : <=0.8. The reference r lily was not used to int erpret this result as normal/abnormal . [facility]aljlhXCQNNODHGH0376-58-21 06:26:00 Test Item Value Reference Range Interpretation Comments Eosinophils # (test code 0.3 See_Comment [A utomated message] The = Eosinophils #) system whic h generated this result tra nsmitted reference range : <=0.5. The reference r lily was not used to int erpret this result as normal/abnormal . [facility] [id number] 06:26:00 Test Item Value Reference Range Interpretation Comments HS Troponin I Baseline (test code = HS 46 Troponin I Baseline) [facility] [id number] 06:26:00 Test Item Value Reference Range Interpretation Comments Glucose Lvl (test code = Glucose Lvl) 122 70-99 [place] 626922-08-28 06:26:00 Test Item Value Reference Range Interpretation Comments BUN (test code = BUN) 12 7-22 [place] 626922-08-28 06:26:00 Test Item Value Reference Range Interpretation Comments Creatinine Lvl (test code = Creatinine 0.66 0.50-1.40 Lvl) [place] 626922-08-28 06:26:00 Test Item Value Reference Range Interpretation Comments Sodium Lvl (test code = Sodium Lvl) 140 135-145 [place] 626922-08-28 06:26:00 Test Item Value Reference Range Interpretation Comments Potassium Lvl (test code = Potassium 4.1 3.5-5.1 Lvl) [place] 626922-08-28 06:26:00 Test Item Value Reference Range Interpretation Comments Chloride Lvl (test code = Chloride Lvl) 109 95-109 [place] 626922-08-28 06:26:00 Test Item Value Reference Range Interpretation Comments CO2 (test code = CO2) 27 24-32 [place] 626922-08-28 06:26:00 Test Item Value Reference Range Interpretation Comments Calcium Lvl (test code = Calcium Lvl) 9.3 8.5-10.5 [place] 626922-08-28 06:26:00 Test Item Value Reference Range Interpretation Comments Total Protein (test code = Total 7.4 6.4-8.4 Protein) [place] 626922-08-28 06:26:00 Test Item Value Reference Range Interpretation Comments Albumin Lvl (test code = Albumin Lvl) 3.6 3.5-5.0 [place] 626922-08-28 06:26:00 Test Item Value Reference Range Interpretation Comments ALT (test code = ALT) 19 See_Comment [Auto mated message] The system which ge nerated this result transmit shaun reference range : <=65. The reference range was not used to interpr et this result as jackeline l/abnormal. [place] 626922-08-28 06:26:00 Test Item Value Reference Range Interpretation Comments AST (test code = AST) 19 See_Comment [Auto mated message] The system which ge nerated this result transmit shaun reference range : <=37. The reference range was not used to interpr et this result as jackeline l/abnormal. [facility]2022-08-28 06:26:00 Test Item Value Reference Range Interpretation Comments Alk Phos (test code = Alk Phos) 92 39-136 [place] 626922-08-28 06:26:00 Test Item Value Reference Range Interpretation Comments Bili Total (test code = Bili Total) 0.3 0.2-1.3 [place] 626922-08-28 06:26:00 Test Item Value Reference Range Interpretation Comments AGAP (test code = AGAP) 8.1 10.0-20.0 [place] 626922-08-28 06:26:00 Test Item Value Reference Range Interpretation Comments B/C Ratio (test code = B/C Ratio) 18 1 6-25 [facility]2022-08-28 06:26:00 Test Item Value Reference Range Interpretation Comments Globulin (test code = Globulin) 3.8 2.7-4.2 [facility]2022-08-28 06:26:00 Test Item Value Reference Range Interpretation Comments A/G Ratio (test code = A/G Ratio) 0.9 1 0.7-1.6 [place] 626922-08-28 06:26:00 Test Item Value Reference Range Interpretation Comments eGFR (test code = eGFR) 95 [facility] PasoRmiztrhQOJLGJSXUJ1835-86-81 06:26:00 Test Item Value Reference Range Interpretation Comments WBC (test code = WBC) 7.6 3.7-10.4 [facility] PasoDzgcqynHMZKTBRYJI0263-25-94 06:26:00 Test Item Value Reference Range Interpretation Comments RBC (test code = RBC) 4.38 4.20-5.40 [place] 107532-08-28 06:26:00 Test Item Value Reference Range Interpretation Comments Hgb (test code = Hgb) 13.1 12.0-16.0 [facility] PasoZsmzsgaSNLGFZECSQ9726-50-83 06:26:00 Test Item Value Reference Range Interpretation Comments Hct (test code = Hct) 39.4 36.0-48.0 [place] 107532-08-28 06:26:00 Test Item Value Reference Range Interpretation Comments MCV (test code = MCV) 90.0 80.0-98.0 [place] [address]-08-28 06:26:00 Test Item Value Reference Range Interpretation Comments MCH (test code = MCH) 29.9 pg 27.0-31.0 [facility] PasoQhhmiveUNPLWIHVFP1723-92-00 06:26:00 Test Item Value Reference Range Interpretation Comments MCHC (test code = MCHC) 33.2 32.0-36.0 [facility] PasoKcuqdsaIXTMZCWFVA0819-81-03 06:26:00 Test Item Value Reference Range Interpretation Comments RDW (test code = RDW) 13.2 11.5-14.5 [place] 107532-08-28 06:26:00 Test Item Value Reference Range Interpretation Comments Platelet (test code = Platelet) 176 133-450 [facility] PasoMydukqjFQILNOYGIF5210-15-82 06:26:00 Test Item Value Reference Range Interpretation Comments MPV (test code = MPV) 10.0 7.4-10.4 [facility] PasoSssbuhpIOFJRVSFOR0513-90-42 06:26:00 Test Item Value Reference Range Interpretation Comments Segs (test code = Segs) 58.0 45.0-75.0 [facility] PasoKakvawnRXHDWSKMDT3015-96-97 06:26:00 Test Item Value Reference Range Interpretation Comments Lymphocytes (test code = Lymphocytes) 30.2 20.0-40.0 [facility] PasoSmnlccqAGJZNBTQTY3703-30-86 06:26:00 Test Item Value Reference Range Interpretation Comments Monocytes (test code = Monocytes) 7.8 2.0-12.0 [facility] PasoMoqatwvUJFOLPYFQI0638-41-17 06:26:00 Test Item Value Reference Range Interpretation Comments Eosinophils (test code = 3.7 See_Comment [A utomated message] The Eosinophils) system which ge nerated this result tra nsmitted reference range : <=4.0. The reference r lily was not used to int erpret this result as normal/abnormal . [place] 107532-08-28 06:26:00 Test Item Value Reference Range Interpretation Comments Basophils (test code = 0.3 See_Comment [Aut omated message] The Basophils) system which ge nerated this result tra nsmitted reference range : <=1.0. The reference r lily was not used to int erpret this result as normal/abnormal . [place] 107532-08-28 06:26:00 Test Item Value Reference Range Interpretation Comments Neutrophils # (test code = Neutrophils 4.4 1.5-8.1 #) [facility]TzvtokcTNNGRQVGNL1200-09-27 06:26:00 Test Item Value Reference Range Interpretation Comments Lymphocytes # (test code = Lymphocytes 2.3 1.0-5.5 #) [facility] PasoHudkqwyAVTQTLJLZJ2488-22-62 06:26:00 Test Item Value Reference Range Interpretation Comments Monocytes # (test code 0.6 See_Comment [Aut omated message] The = Monocytes #) system which generated this result tra nsmitted reference range : <=0.8. The reference r lily was not used to int erpret this result as normal/abnormal . [facility] PasoGwtgijaZRSIDXHWML5220-00-27 06:26:00 Test Item Value Reference Range Interpretation Comments Eosinophils # (test code 0.3 See_Comment [A utomated message] The = Eosinophils #) system whic h generated this result tra nsmitted reference range : <=0.5. The reference r lily was not used to int erpret this result as normal/abnormal . [facility] [id number] 06:26:00 Test Item Value Reference Range Interpretation Comments HS Troponin I Baseline (test code = HS 46 Troponin I Baseline) [facility] [id number] 06:26:00 Test Item Value Reference Range Interpretation Comments Glucose Lvl (test code = Glucose Lvl) 122 70-99 [facility] [id number] 06:26:00 Test Item Value Reference Range Interpretation Comments BUN (test code = BUN) 12 7-22 [facility] [id number] 06:26:00 Test Item Value Reference Range Interpretation Comments Creatinine Lvl (test code = Creatinine 0.66 0.50-1.40 Lvl) [facility] [id number] 06:26:00 Test Item Value Reference Range Interpretation Comments Sodium Lvl (test code = Sodium Lvl) 140 135-145 [facility] [id number] 06:26:00 Test Item Value Reference Range Interpretation Comments Potassium Lvl (test code = Potassium 4.1 3.5-5.1 Lvl) [facility] [id number] 06:26:00 Test Item Value Reference Range Interpretation Comments Chloride Lvl (test code = Chloride Lvl) 109 95-109 [place] 626922-08-28 06:26:00 Test Item Value Reference Range Interpretation Comments CO2 (test code = CO2) 27 24-32 [place] 626922-08-28 06:26:00 Test Item Value Reference Range Interpretation Comments Calcium Lvl (test code = Calcium Lvl) 9.3 8.5-10.5 [facility] [id number] 06:26:00 Test Item Value Reference Range Interpretation Comments Total Protein (test code = Total 7.4 6.4-8.4 Protein) [place] 626922-08-28 06:26:00 Test Item Value Reference Range Interpretation Comments Albumin Lvl (test code = Albumin Lvl) 3.6 3.5-5.0 [facility]FF[place] [id number] 06:26:00 Test Item Value Reference Range Interpretation Comments ALT (test code = ALT) 19 See_Comment [Auto mated message] The system which ge nerated this result transmit shaun reference range : <=65. The reference range was not used to interpr et this result as jackeline l/abnormal. [facility] [id number] 06:26:00 Test Item Value Reference Range Interpretation Comments AST (test code = AST) 19 See_Comment [Auto mated message] The system which ge nerated this result transmit shaun reference range : <=37. The reference range was not used to interpr et this result as jackeline l/abnormal. [facility] [id number] 06:26:00 Test Item Value Reference Range Interpretation Comments Alk Phos (test code = Alk Phos) 92 39-136 [facility] [id number] 06:26:00 Test Item Value Reference Range Interpretation Comments Bili Total (test code = Bili Total) 0.3 0.2-1.3 [facility] [id number] 06:26:00 Test Item Value Reference Range Interpretation Comments AGAP (test code = AGAP) 8.1 10.0-20.0 [facility] [id number] 06:26:00 Test Item Value Reference Range Interpretation Comments B/C Ratio (test code = B/C Ratio) 18 1 6-25 [facility] [id number] 06:26:00 Test Item Value Reference Range Interpretation Comments Globulin (test code = Globulin) 3.8 2.7-4.2 [facility] [id number] 06:26:00 Test Item Value Reference Range Interpretation Comments A/G Ratio (test code = A/G Ratio) 0.9 1 0.7-1.6 [facility]2022-08-28 06:26:00 Test Item Value Reference Range Interpretation Comments eGFR (test code = eGFR) 95 [facility] PasoEgwmzpdPFXMJODJVZ5578-70-47 06:26:00 Test Item Value Reference Range Interpretation Comments WBC (test code = WBC) 7.6 3.7-10.4 [place] 107532-08-28 06:26:00 Test Item Value Reference Range Interpretation Comments RBC (test code = RBC) 4.38 4.20-5.40 [place] 107532-08-28 06:26:00 Test Item Value Reference Range Interpretation Comments Hgb (test code = Hgb) 13.1 12.0-16.0 [place] 107532-08-28 06:26:00 Test Item Value Reference Range Interpretation Comments Hct (test code = Hct) 39.4 36.0-48.0 [place] 107532-08-28 06:26:00 Test Item Value Reference Range Interpretation Comments MCV (test code = MCV) 90.0 80.0-98.0 [facility] PasoAghzjwvWOXAKDXXYA5329-43-16 06:26:00 Test Item Value Reference Range Interpretation Comments MCH (test code = MCH) 29.9 pg 27.0-31.0 [facility] PasoNqkllukAQZKFPPSUU7092-47-14 06:26:00 Test Item Value Reference Range Interpretation Comments MCHC (test code = MCHC) 33.2 32.0-36.0 [place] 107532-08-28 06:26:00 Test Item Value Reference Range Interpretation Comments RDW (test code = RDW) 13.2 11.5-14.5 [facility] PasoXggmcjjESMJWXDIHN6161-18-48 06:26:00 Test Item Value Reference Range Interpretation Comments Platelet (test code = Platelet) 176 133-450 [facility] PasoFourbpzRIZBOQPJUC4571-66-01 06:26:00 Test Item Value Reference Range Interpretation Comments MPV (test code = MPV) 10.0 7.4-10.4 [place] 107532-08-28 06:26:00 Test Item Value Reference Range Interpretation Comments Segs (test code = Segs) 58.0 45.0-75.0 [place] 107532-08-28 06:26:00 Test Item Value Reference Range Interpretation Comments Lymphocytes (test code = Lymphocytes) 30.2 20.0-40.0 [place] 107532-08-28 06:26:00 Test Item Value Reference Range Interpretation Comments Monocytes (test code = Monocytes) 7.8 2.0-12.0 [place] 107532-08-28 06:26:00 Test Item Value Reference Range Interpretation Comments Eosinophils (test code = 3.7 See_Comment [A utomated message] The Eosinophils) system which ge nerated this result tra nsmitted reference range : <=4.0. The reference r lily was not used to int erpret this result as normal/abnormal . [place] 107532-08-28 06:26:00 Test Item Value Reference Range Interpretation Comments Basophils (test code = 0.3 See_Comment [Aut omated message] The Basophils) system which ge nerated this result tra nsmitted reference range : <=1.0. The reference r lily was not used to int erpret this result as normal/abnormal . [place] 107532-08-28 06:26:00 Test Item Value Reference Range Interpretation Comments Neutrophils # (test code = Neutrophils 4.4 1.5-8.1 #) [place] 107532-08-28 06:26:00 Test Item Value Reference Range Interpretation Comments Lymphocytes # (test code = Lymphocytes 2.3 1.0-5.5 #) [place] [address]-08-28 06:26:00 Test Item Value Reference Range Interpretation Comments Monocytes # (test code 0.6 See_Comment [Aut omated message] The = Monocytes #) system which generated this result tra nsmitted reference range : <=0.8. The reference r lily was not used to int erpret this result as normal/abnormal . [facility] PasoTpgsiyvAJAZWSSSTK7084-23-43 06:26:00 Test Item Value Reference Range Interpretation Comments Eosinophils # (test code 0.3 See_Comment [A utomated message] The = Eosinophils #) system whic h generated this result tra nsmitted reference range : <=0.5. The reference r lily was not used to int erpret this result as normal/abnormal . [facility] [id number] 06:26:00 Test Item Value Reference Range Interpretation Comments HS Troponin I Baseline (test code = HS 46 Troponin I Baseline) [facility] [id number] 06:26:00 Test Item Value Reference Range Interpretation Comments Glucose Lvl (test code = Glucose Lvl) 122 70-99 [facility] [id number] 06:26:00 Test Item Value Reference Range Interpretation Comments BUN (test code = BUN) 12 7-22 [facility] [id number] 06:26:00 Test Item Value Reference Range Interpretation Comments Creatinine Lvl (test code = Creatinine 0.66 0.50-1.40 Lvl) [facility] [id number] 06:26:00 Test Item Value Reference Range Interpretation Comments Sodium Lvl (test code = Sodium Lvl) 140 135-145 [facility] [id number] 06:26:00 Test Item Value Reference Range Interpretation Comments Potassium Lvl (test code = Potassium 4.1 3.5-5.1 Lvl) [facility] [id number] 06:26:00 Test Item Value Reference Range Interpretation Comments Chloride Lvl (test code = Chloride Lvl) 109 95-109 [facility] [id number] 06:26:00 Test Item Value Reference Range Interpretation Comments CO2 (test code = CO2) 27 24-32 [facility] [id number] 06:26:00 Test Item Value Reference Range Interpretation Comments Calcium Lvl (test code = Calcium Lvl) 9.3 8.5-10.5 [facility] [id number] 06:26:00 Test Item Value Reference Range Interpretation Comments Total Protein (test code = Total 7.4 6.4-8.4 Protein) [facility] [id number] 06:26:00 Test Item Value Reference Range Interpretation Comments Albumin Lvl (test code = Albumin Lvl) 3.6 3.5-5.0 [facility] [id number] 06:26:00 Test Item Value Reference Range Interpretation Comments ALT (test code = ALT) 19 See_Comment [Auto mated message] The system which ge nerated this result transmit shaun reference range : <=65. The reference range was not used to interpr et this result as jackeline l/abnormal. [facility] [id number] 06:26:00 Test Item Value Reference Range Interpretation Comments AST (test code = AST) 19 See_Comment [Auto mated message] The system which ge nerated this result transmit shaun reference range : <=37. The reference range was not used to interpr et this result as jackeline l/abnormal. [facility] [id number] 06:26:00 Test Item Value Reference Range Interpretation Comments Alk Phos (test code = Alk Phos) 92 39-136 [facility] [id number] 06:26:00 Test Item Value Reference Range Interpretation Comments Bili Total (test code = Bili Total) 0.3 0.2-1.3 [place] 626922-08-28 06:26:00 Test Item Value Reference Range Interpretation Comments AGAP (test code = AGAP) 8.1 10.0-20.0 [facility] [id number] 06:26:00 Test Item Value Reference Range Interpretation Comments B/C Ratio (test code = B/C Ratio) 18 1 6-25 [place] 626922-08-28 06:26:00 Test Item Value Reference Range Interpretation Comments Globulin (test code = Globulin) 3.8 2.7-4.2 [facility] [id number] 06:26:00 Test Item Value Reference Range Interpretation Comments A/G Ratio (test code = A/G Ratio) 0.9 1 0.7-1.6 [facility] [id number] 06:26:00 Test Item Value Reference Range Interpretation Comments eGFR (test code = eGFR) 95 [place] 107532-08-28 06:26:00 Test Item Value Reference Range Interpretation Comments WBC (test code = WBC) 7.6 3.7-10.4 [place] 107532-08-28 06:26:00 Test Item Value Reference Range Interpretation Comments RBC (test code = RBC) 4.38 4.20-5.40 [place] 107532-08-28 06:26:00 Test Item Value Reference Range Interpretation Comments Hgb (test code = Hgb) 13.1 12.0-16.0 [facility] PasoMkrfhvwAPSTVXTLRU2763-88-43 06:26:00 Test Item Value Reference Range Interpretation Comments Hct (test code = Hct) 39.4 36.0-48.0 [facility] PasoCzdscolOWDQXWELFV3224-29-00 06:26:00 Test Item Value Reference Range Interpretation Comments MCV (test code = MCV) 90.0 80.0-98.0 [facility] PasoWgoqfvoDJQKFUYIAC2340-39-59 06:26:00 Test Item Value Reference Range Interpretation Comments MCH (test code = MCH) 29.9 pg 27.0-31.0 [facility] PasoPabibqvPTYGZQBPZS6462-42-63 06:26:00 Test Item Value Reference Range Interpretation Comments MCHC (test code = MCHC) 33.2 32.0-36.0 [facility] PasoHfnxqhgPMXQAUKHKQ1851-52-50 06:26:00 Test Item Value Reference Range Interpretation Comments RDW (test code = RDW) 13.2 11.5-14.5 [facility] PasoAzvdasdKLHHFUZHXW7400-69-27 06:26:00 Test Item Value Reference Range Interpretation Comments Platelet (test code = Platelet) 176 133-450 [facility] PasoByfyzukLHIRYOOWST7727-65-22 06:26:00 Test Item Value Reference Range Interpretation Comments MPV (test code = MPV) 10.0 7.4-10.4 [place] 107532-08-28 06:26:00 Test Item Value Reference Range Interpretation Comments Segs (test code = Segs) 58.0 45.0-75.0 [facility] PasoLfsamgsANOMHHVEQV2064-51-01 06:26:00 Test Item Value Reference Range Interpretation Comments Lymphocytes (test code = Lymphocytes) 30.2 20.0-40.0 [facility] PasoGitpmhyDPELRPWJTJ4054-28-93 06:26:00 Test Item Value Reference Range Interpretation Comments Monocytes (test code = Monocytes) 7.8 2.0-12.0 [facility] PasoEhxiltyJWPRQBVNLS8638-26-47 06:26:00 Test Item Value Reference Range Interpretation Comments Eosinophils (test code = 3.7 See_Comment [A utomated message] The Eosinophils) system which ge nerated this result tra nsmitted reference range : <=4.0. The reference r lily was not used to int erpret this result as normal/abnormal . [id number] 06:26:00 Test Item Value Reference Range Interpretation Comments Basophils (test code = 0.3 See_Comment [Aut omated message] The Basophils) system which ge nerated this result tra nsmitted reference range : <=1.0. The reference r lily was not used to int erpret this result as normal/abnormal . [facility] PasoPjawsydRECZQNRBAJ0335-49-60 06:26:00 Test Item Value Reference Range Interpretation Comments Neutrophils # (test code = Neutrophils 4.4 1.5-8.1 #) [facility]awEiwpkwjWUPBLSFBTU6747-46-22 06:26:00 Test Item Value Reference Range Interpretation Comments Lymphocytes # (test code = Lymphocytes 2.3 1.0-5.5 #) [facility] PasoInmtpjnNNHDXGTUVM3086-28-91 06:26:00 Test Item Value Reference Range Interpretation Comments Monocytes # (test code 0.6 See_Comment [Aut omated message] The = Monocytes #) system which generated this result tra nsmitted reference range : <=0.8. The reference r lily was not used to int erpret this result as normal/abnormal . [facility] PasoRvdiknqUDYWSMZKUF5049-57-21 06:26:00 Test Item Value Reference Range Interpretation Comments Eosinophils # (test code 0.3 See_Comment [A utomated message] The = Eosinophils #) system whic h generated this result tra nsmitted reference range : <=0.5. The reference r lily was not used to int erpret this result as normal/abnormal . [facility] [id number] 06:26:00 Test Item Value Reference Range Interpretation Comments HS Troponin I Baseline (test code = HS 46 Troponin I Baseline) [facility] [id number] 06:26:00 Test Item Value Reference Range Interpretation Comments Glucose Lvl (test code = Glucose Lvl) 122 70-99 [facility] [id number] 06:26:00 Test Item Value Reference Range Interpretation Comments BUN (test code = BUN) 12 7-22 [facility] [id number] 06:26:00 Test Item Value Reference Range Interpretation Comments Creatinine Lvl (test code = Creatinine 0.66 0.50-1.40 Lvl) [place] 626922-08-28 06:26:00 Test Item Value Reference Range Interpretation Comments Sodium Lvl (test code = Sodium Lvl) 140 135-145 [place] 626922-08-28 06:26:00 Test Item Value Reference Range Interpretation Comments Potassium Lvl (test code = Potassium 4.1 3.5-5.1 Lvl) [place] 626922-08-28 06:26:00 Test Item Value Reference Range Interpretation Comments Chloride Lvl (test code = Chloride Lvl) 109 95-109 [place] 626922-08-28 06:26:00 Test Item Value Reference Range Interpretation Comments CO2 (test code = CO2) 27 24-32 [place] 626922-08-28 06:26:00 Test Item Value Reference Range Interpretation Comments Calcium Lvl (test code = Calcium Lvl) 9.3 8.5-10.5 [place] 626922-08-28 06:26:00 Test Item Value Reference Range Interpretation Comments Total Protein (test code = Total 7.4 6.4-8.4 Protein) [place] 626922-08-28 06:26:00 Test Item Value Reference Range Interpretation Comments Albumin Lvl (test code = Albumin Lvl) 3.6 3.5-5.0 [place] 626922-08-28 06:26:00 Test Item Value Reference Range Interpretation Comments ALT (test code = ALT) 19 See_Comment [Auto mated message] The system which ge nerated this result transmit shaun reference range : <=65. The reference range was not used to interpr et this result as jackeline l/abnormal. [place] 626922-08-28 06:26:00 Test Item Value Reference Range Interpretation Comments AST (test code = AST) 19 See_Comment [Auto mated message] The system which ge nerated this result transmit shaun reference range : <=37. The reference range was not used to interpr et this result as jackeline l/abnormal. [place] 626922-08-28 06:26:00 Test Item Value Reference Range Interpretation Comments Alk Phos (test code = Alk Phos) 92 39-136 [place] 626922-08-28 06:26:00 Test Item Value Reference Range Interpretation Comments Bili Total (test code = Bili Total) 0.3 0.2-1.3 [place] 626922-08-28 06:26:00 Test Item Value Reference Range Interpretation Comments AGAP (test code = AGAP) 8.1 10.0-20.0 [place] 626922-08-28 06:26:00 Test Item Value Reference Range Interpretation Comments B/C Ratio (test code = B/C Ratio) 18 1 6-25 [place] 626922-08-28 06:26:00 Test Item Value Reference Range Interpretation Comments Globulin (test code = Globulin) 3.8 2.7-4.2 [place] 626922-08-28 06:26:00 Test Item Value Reference Range Interpretation Comments A/G Ratio (test code = A/G Ratio) 0.9 1 0.7-1.6 [place] 626922-08-28 06:26:00 Test Item Value Reference Range Interpretation Comments eGFR (test code = eGFR) 95 [place] 107532-08-28 06:26:00 Test Item Value Reference Range Interpretation Comments WBC (test code = WBC) 7.6 3.7-10.4 [place] 107532-08-28 06:26:00 Test Item Value Reference Range Interpretation Comments RBC (test code = RBC) 4.38 4.20-5.40 [place] 107532-08-28 06:26:00 Test Item Value Reference Range Interpretation Comments Hgb (test code = Hgb) 13.1 12.0-16.0 [place] 107532-08-28 06:26:00 Test Item Value Reference Range Interpretation Comments Hct (test code = Hct) 39.4 36.0-48.0 [place] 107532-08-28 06:26:00 Test Item Value Reference Range Interpretation Comments MCV (test code = MCV) 90.0 80.0-98.0 [place] 107532-08-28 06:26:00 Test Item Value Reference Range Interpretation Comments MCH (test code = MCH) 29.9 pg 27.0-31.0 [place] 107532-08-28 06:26:00 Test Item Value Reference Range Interpretation Comments MCHC (test code = MCHC) 33.2 32.0-36.0 [place] 107532-08-28 06:26:00 Test Item Value Reference Range Interpretation Comments RDW (test code = RDW) 13.2 11.5-14.5 [place] 107532-08-28 06:26:00 Test Item Value Reference Range Interpretation Comments Platelet (test code = Platelet) 176 133-450 [place] 107532-08-28 06:26:00 Test Item Value Reference Range Interpretation Comments MPV (test code = MPV) 10.0 7.4-10.4 [place] 107532-08-28 06:26:00 Test Item Value Reference Range Interpretation Comments Segs (test code = Segs) 58.0 45.0-75.0 [place] 107532-08-28 06:26:00 Test Item Value Reference Range Interpretation Comments Lymphocytes (test code = Lymphocytes) 30.2 20.0-40.0 [place] 107532-08-28 06:26:00 Test Item Value Reference Range Interpretation Comments Monocytes (test code = Monocytes) 7.8 2.0-12.0 [place] 107532-08-28 06:26:00 Test Item Value Reference Range Interpretation Comments Eosinophils (test code = 3.7 See_Comment [A utomated message] The Eosinophils) system which ge nerated this result tra nsmitted reference range : <=4.0. The reference r lily was not used to int erpret this result as normal/abnormal . [facility]vheuavFKGBIAHYSY9044-02-[facility] 06:26:00 Test Item Value Reference Range Interpretation Comments Basophils (test code = 0.3 See_Comment [Aut omated message] The Basophils) system which ge nerated this result tra nsmitted reference range : <=1.0. The reference r lily was not used to int erpret this result as normal/abnormal . [facility] PasoTblixcpGFRABPJSJR8169-41-58 06:26:00 Test Item Value Reference Range Interpretation Comments Neutrophils # (test code = Neutrophils 4.4 1.5-8.1 #) [facility] PasoLqfpllgJXBRVYCJCV9217-93-35 06:26:00 Test Item Value Reference Range Interpretation Comments Lymphocytes # (test code = Lymphocytes 2.3 1.0-5.5 #) [place] 107532-08-28 06:26:00 Test Item Value Reference Range Interpretation Comments Monocytes # (test code 0.6 See_Comment [Aut omated message] The = Monocytes #) system which generated this result tra nsmitted reference range : <=0.8. The reference r lily was not used to int erpret this result as normal/abnormal . [facility]stxgnpCQZVBWWNHZ9725-80-67 06:26:00 Test Item Value Reference Range Interpretation Comments Eosinophils # (test code 0.3 See_Comment [A utomated message] The = Eosinophils #) system whic h generated this result tra nsmitted reference range : <=0.5. The reference r lily was not used to int erpret this result as normal/abnormal . [facility] [id number] 06:26:00 Test Item Value Reference Range Interpretation Comments HS Troponin I Baseline (test code = HS 46 Troponin I Baseline) [facility] [id number] 06:26:00 Test Item Value Reference Range Interpretation Comments Glucose Lvl (test code = Glucose Lvl) 122 70-99 [facility] [id number] 06:26:00 Test Item Value Reference Range Interpretation Comments BUN (test code = BUN) 12 7-22 [facility] [id number] 06:26:00 Test Item Value Reference Range Interpretation Comments Creatinine Lvl (test code = Creatinine 0.66 0.50-1.40 Lvl) [facility] [id number] 06:26:00 Test Item Value Reference Range Interpretation Comments Sodium Lvl (test code = Sodium Lvl) 140 135-145 [facility] [id number] 06:26:00 Test Item Value Reference Range Interpretation Comments Potassium Lvl (test code = Potassium 4.1 3.5-5.1 Lvl) [facility] [id number] 06:26:00 Test Item Value Reference Range Interpretation Comments Chloride Lvl (test code = Chloride Lvl) 109 95-109 [facility] [id number] 06:26:00 Test Item Value Reference Range Interpretation Comments CO2 (test code = CO2) 27 24-32 [facility] [id number] 06:26:00 Test Item Value Reference Range Interpretation Comments Calcium Lvl (test code = Calcium Lvl) 9.3 8.5-10.5 [facility] [id number] 06:26:00 Test Item Value Reference Range Interpretation Comments Total Protein (test code = Total 7.4 6.4-8.4 Protein) [place] 626922-08-28 06:26:00 Test Item Value Reference Range Interpretation Comments Albumin Lvl (test code = Albumin Lvl) 3.6 3.5-5.0 [facility] CampusThing[facility] [id number] 06:26:00 Test Item Value Reference Range Interpretation Comments ALT (test code = ALT) 19 See_Comment [Auto mated message] The system which ge nerated this result transmit shaun reference range : <=65. The reference range was not used to interpr et this result as jackeline l/abnormal. [facility] [id number] 06:26:00 Test Item Value Reference Range Interpretation Comments AST (test code = AST) 19 See_Comment [Auto mated message] The system which ge nerated this result transmit shaun reference range : <=37. The reference range was not used to interpr et this result as jackeline l/abnormal. [facility] [id number] 06:26:00 Test Item Value Reference Range Interpretation Comments Alk Phos (test code = Alk Phos) 92 39-136 [facility] [id number] 06:26:00 Test Item Value Reference Range Interpretation Comments Bili Total (test code = Bili Total) 0.3 0.2-1.3 [facility] [id number] 06:26:00 Test Item Value Reference Range Interpretation Comments AGAP (test code = AGAP) 8.1 10.0-20.0 [facility] [id number] 06:26:00 Test Item Value Reference Range Interpretation Comments B/C Ratio (test code = B/C Ratio) 18 1 6-25 [facility] [id number] 06:26:00 Test Item Value Reference Range Interpretation Comments Globulin (test code = Globulin) 3.8 2.7-4.2 [facility] [id number] 06:26:00 Test Item Value Reference Range Interpretation Comments A/G Ratio (test code = A/G Ratio) 0.9 1 0.7-1.6 [facility]2022-08-28 06:26:00 Test Item Value Reference Range Interpretation Comments eGFR (test code = eGFR) 95 [facility] [id number] 06:26:00 Test Item Value Reference Range Interpretation Comments WBC (test code = WBC) 7.6 3.7-10.4 [place] 107532-08-28 06:26:00 Test Item Value Reference Range Interpretation Comments RBC (test code = RBC) 4.38 4.20-5.40 [place] 107532-08-28 06:26:00 Test Item Value Reference Range Interpretation Comments Hgb (test code = Hgb) 13.1 12.0-16.0 [place] 107532-08-28 06:26:00 Test Item Value Reference Range Interpretation Comments Hct (test code = Hct) 39.4 36.0-48.0 [facility] PasoFidfdehZZIBWQGRXK5863-92-09 06:26:00 Test Item Value Reference Range Interpretation Comments MCV (test code = MCV) 90.0 80.0-98.0 [place] 107532-08-28 06:26:00 Test Item Value Reference Range Interpretation Comments MCH (test code = MCH) 29.9 pg 27.0-31.0 [facility] [id number] 06:26:00 Test Item Value Reference Range Interpretation Comments MCHC (test code = MCHC) 33.2 32.0-36.0 [facility] [id number] 06:26:00 Test Item Value Reference Range Interpretation Comments RDW (test code = RDW) 13.2 11.5-14.5 [facility] PasoBrndigtPKRWWQSECK8489-73-26 06:26:00 Test Item Value Reference Range Interpretation Comments Platelet (test code = Platelet) 176 133-450 [facility] PasoWiiaptzBBPJDTXTVE9481-67-06 06:26:00 Test Item Value Reference Range Interpretation Comments MPV (test code = MPV) 10.0 7.4-10.4 [facility] [id number] 06:26:00 Test Item Value Reference Range Interpretation Comments Segs (test code = Segs) 58.0 45.0-75.0 [facility] PasoErwjoruFAPSFGMZAM9371-64-51 06:26:00 Test Item Value Reference Range Interpretation Comments Lymphocytes (test code = Lymphocytes) 30.2 20.0-40.0 [facility] PasoCtqgppjWUVCATNLCG7031-49-08 06:26:00 Test Item Value Reference Range Interpretation Comments Monocytes (test code = Monocytes) 7.8 2.0-12.0 [facility] PasoBujgzveHFXNHQYAXO5251-46-79 06:26:00 Test Item Value Reference Range Interpretation Comments Eosinophils (test code = 3.7 See_Comment [A utomated message] The Eosinophils) system which ge nerated this result tra nsmitted reference range : <=4.0. The reference r lily was not used to int erpret this result as normal/abnormal . [facility] [id number] 06:26:00 Test Item Value Reference Range Interpretation Comments Basophils (test code = 0.3 See_Comment [Aut omated message] The Basophils) system which ge nerated this result tra nsmitted reference range : <=1.0. The reference r lily was not used to int erpret this result as normal/abnormal . [facility] PasoIvqunwyPWOWNDTCTZ8440-13-24 06:26:00 Test Item Value Reference Range Interpretation Comments Neutrophils # (test code = Neutrophils 4.4 1.5-8.1 #) [facility] [id number] 06:26:00 Test Item Value Reference Range Interpretation Comments Lymphocytes # (test code = Lymphocytes 2.3 1.0-5.5 #) [facility] PasoRazitglTJZJTKYQZC7375-17-16 06:26:00 Test Item Value Reference Range Interpretation Comments Monocytes # (test code 0.6 See_Comment [Aut omated message] The = Monocytes #) system which generated this result tra nsmitted reference range : <=0.8. The reference r lily was not used to int erpret this result as normal/abnormal . [facility] PasoLimkhosBHOKLYIPGP9314-82-35 06:26:00 Test Item Value Reference Range Interpretation Comments Eosinophils # (test code 0.3 See_Comment [A utomated message] The = Eosinophils #) system whic h generated this result tra nsmitted reference range : <=0.5. The reference r lily was not used to int erpret this result as normal/abnormal . [facility]DIASCENS[facility] [id number] 06:26:00 Test Item Value Reference Range Interpretation Comments HS Troponin I Baseline (test code = HS 46 Troponin I Baseline) [place] 626922-08-28 06:26:00 Test Item Value Reference Range Interpretation Comments Glucose Lvl (test code = Glucose Lvl) 122 70-99 [place] 626922-08-28 06:26:00 Test Item Value Reference Range Interpretation Comments BUN (test code = BUN) 12 7-22 [place] 626922-08-28 06:26:00 Test Item Value Reference Range Interpretation Comments Creatinine Lvl (test code = Creatinine 0.66 0.50-1.40 Lvl) [place] 626922-08-28 06:26:00 Test Item Value Reference Range Interpretation Comments Sodium Lvl (test code = Sodium Lvl) 140 135-145 [place] 626922-08-28 06:26:00 Test Item Value Reference Range Interpretation Comments Potassium Lvl (test code = Potassium 4.1 3.5-5.1 Lvl) [place] 626922-08-28 06:26:00 Test Item Value Reference Range Interpretation Comments Chloride Lvl (test code = Chloride Lvl) 109 95-109 [place] 626922-08-28 06:26:00 Test Item Value Reference Range Interpretation Comments CO2 (test code = CO2) 27 24-32 [place] 626922-08-28 06:26:00 Test Item Value Reference Range Interpretation Comments Calcium Lvl (test code = Calcium Lvl) 9.3 8.5-10.5 [place] 626922-08-28 06:26:00 Test Item Value Reference Range Interpretation Comments Total Protein (test code = Total 7.4 6.4-8.4 Protein) [place] 626922-08-28 06:26:00 Test Item Value Reference Range Interpretation Comments Albumin Lvl (test code = Albumin Lvl) 3.6 3.5-5.0 [place] 626922-08-28 06:26:00 Test Item Value Reference Range Interpretation Comments ALT (test code = ALT) 19 See_Comment [Auto mated message] The system which ge nerated this result transmit shaun reference range : <=65. The reference range was not used to interpr et this result as jackeline l/abnormal. [place] 626922-08-28 06:26:00 Test Item Value Reference Range Interpretation Comments AST (test code = AST) 19 See_Comment [Auto mated message] The system which ge nerated this result transmit shaun reference range : <=37. The reference range was not used to interpr et this result as jackeline l/abnormal. [facility]2022-08-28 06:26:00 Test Item Value Reference Range Interpretation Comments Alk Phos (test code = Alk Phos) 92 39-136 [facility]2022-08-28 06:26:00 Test Item Value Reference Range Interpretation Comments Bili Total (test code = Bili Total) 0.3 0.2-1.3 [place] 626922-08-28 06:26:00 Test Item Value Reference Range Interpretation Comments AGAP (test code = AGAP) 8.1 10.0-20.0 [place] 626922-08-28 06:26:00 Test Item Value Reference Range Interpretation Comments B/C Ratio (test code = B/C Ratio) 18 1 6-25 [place] 626922-08-28 06:26:00 Test Item Value Reference Range Interpretation Comments Globulin (test code = Globulin) 3.8 2.7-4.2 [place] 626922-08-28 06:26:00 Test Item Value Reference Range Interpretation Comments A/G Ratio (test code = A/G Ratio) 0.9 1 0.7-1.6 [place] 626922-08-28 06:26:00 Test Item Value Reference Range Interpretation Comments eGFR (test code = eGFR) 95 [facility] PasoXctsikoSFROSUTPWZ4303-80-82 06:26:00 Test Item Value Reference Range Interpretation Comments WBC (test code = WBC) 7.6 3.7-10.4 [place] 107532-08-28 06:26:00 Test Item Value Reference Range Interpretation Comments RBC (test code = RBC) 4.38 4.20-5.40 [place] 107532-08-28 06:26:00 Test Item Value Reference Range Interpretation Comments Hgb (test code = Hgb) 13.1 12.0-16.0 [place] 107532-08-28 06:26:00 Test Item Value Reference Range Interpretation Comments Hct (test code = Hct) 39.4 36.0-48.0 [place] 107532-08-28 06:26:00 Test Item Value Reference Range Interpretation Comments MCV (test code = MCV) 90.0 80.0-98.0 [place] 107532-08-28 06:26:00 Test Item Value Reference Range Interpretation Comments MCH (test code = MCH) 29.9 pg 27.0-31.0 [place] 107532-08-28 06:26:00 Test Item Value Reference Range Interpretation Comments MCHC (test code = MCHC) 33.2 32.0-36.0 [place] 107532-08-28 06:26:00 Test Item Value Reference Range Interpretation Comments RDW (test code = RDW) 13.2 11.5-14.5 [place] 107532-08-28 06:26:00 Test Item Value Reference Range Interpretation Comments Platelet (test code = Platelet) 176 133-450 [facility] PasoMwzxwikYEOKAVVQKV0053-24-82 06:26:00 Test Item Value Reference Range Interpretation Comments MPV (test code = MPV) 10.0 7.4-10.4 [place] 107532-08-28 06:26:00 Test Item Value Reference Range Interpretation Comments Segs (test code = Segs) 58.0 45.0-75.0 [place] 107532-08-28 06:26:00 Test Item Value Reference Range Interpretation Comments Lymphocytes (test code = Lymphocytes) 30.2 20.0-40.0 [place] 107532-08-28 06:26:00 Test Item Value Reference Range Interpretation Comments Monocytes (test code = Monocytes) 7.8 2.0-12.0 [place] 107532-08-28 06:26:00 Test Item Value Reference Range Interpretation Comments Eosinophils (test code = 3.7 See_Comment [A utomated message] The Eosinophils) system which ge nerated this result tra nsmitted reference range : <=4.0. The reference r lily was not used to int erpret this result as normal/abnormal . [place] 107532-08-28 06:26:00 Test Item Value Reference Range Interpretation Comments Basophils (test code = 0.3 See_Comment [Aut omated message] The Basophils) system which ge nerated this result tra nsmitted reference range : <=1.0. The reference r lily was not used to int erpret this result as normal/abnormal . [facility] PasoCowgfbfTRDDSPEZEC3382-97-61 06:26:00 Test Item Value Reference Range Interpretation Comments Neutrophils # (test code = Neutrophils 4.4 1.5-8.1 #) [facility]EtkrqrtQHYBQYNZMD1827-81-05 06:26:00 Test Item Value Reference Range Interpretation Comments Lymphocytes # (test code = Lymphocytes 2.3 1.0-5.5 #) [facility] PasoEzabdufPCPOBPDORI1026-90-25 06:26:00 Test Item Value Reference Range Interpretation Comments Monocytes # (test code 0.6 See_Comment [Aut omated message] The = Monocytes #) system which generated this result tra nsmitted reference range : <=0.8. The reference r lily was not used to int erpret this result as normal/abnormal . [facility] PasoObpmbruYJUULNDPUC6107-09-01 06:26:00 Test Item Value Reference Range Interpretation Comments Eosinophils # (test code 0.3 See_Comment [A utomated message] The = Eosinophils #) system whic h generated this result tra nsmitted reference range : <=0.5. The reference r lily was not used to int erpret this result as normal/abnormal . [facility] [id number] 06:26:00 Test Item Value Reference Range Interpretation Comments HS Troponin I Baseline (test code = HS 46 Troponin I Baseline) [facility]2022-08-28 06:26:00 Test Item Value Reference Range Interpretation Comments Glucose Lvl (test code = Glucose Lvl) 122 70-99 [facility]2022-08-28 06:26:00 Test Item Value Reference Range Interpretation Comments BUN (test code = BUN) 12 7-22 [facility]2022-08-28 06:26:00 Test Item Value Reference Range Interpretation Comments Creatinine Lvl (test code = Creatinine 0.66 0.50-1.40 Lvl) [facility]2022-08-28 06:26:00 Test Item Value Reference Range Interpretation Comments Sodium Lvl (test code = Sodium Lvl) 140 135-145 [facility]2022-08-28 06:26:00 Test Item Value Reference Range Interpretation Comments Potassium Lvl (test code = Potassium 4.1 3.5-5.1 Lvl) [place] 626922-08-28 06:26:00 Test Item Value Reference Range Interpretation Comments Chloride Lvl (test code = Chloride Lvl) 109 95-109 [place] 626922-08-28 06:26:00 Test Item Value Reference Range Interpretation Comments CO2 (test code = CO2) 27 24-32 [place] 626922-08-28 06:26:00 Test Item Value Reference Range Interpretation Comments Calcium Lvl (test code = Calcium Lvl) 9.3 8.5-10.5 [place] 626922-08-28 06:26:00 Test Item Value Reference Range Interpretation Comments Total Protein (test code = Total 7.4 6.4-8.4 Protein) [place] 626922-08-28 06:26:00 Test Item Value Reference Range Interpretation Comments Albumin Lvl (test code = Albumin Lvl) 3.6 3.5-5.0 [place] 626922-08-28 06:26:00 Test Item Value Reference Range Interpretation Comments ALT (test code = ALT) 19 See_Comment [Auto mated message] The system which ge nerated this result transmit shaun reference range : <=65. The reference range was not used to interpr et this result as jackeline l/abnormal. [place] 626922-08-28 06:26:00 Test Item Value Reference Range Interpretation Comments AST (test code = AST) 19 See_Comment [Auto mated message] The system which ge nerated this result transmit shaun reference range : <=37. The reference range was not used to interpr et this result as jackeline l/abnormal. [place] 626922-08-28 06:26:00 Test Item Value Reference Range Interpretation Comments Alk Phos (test code = Alk Phos) 92 39-136 [place] 626922-08-28 06:26:00 Test Item Value Reference Range Interpretation Comments Bili Total (test code = Bili Total) 0.3 0.2-1.3 [place] 626922-08-28 06:26:00 Test Item Value Reference Range Interpretation Comments AGAP (test code = AGAP) 8.1 10.0-20.0 [place] 626922-08-28 06:26:00 Test Item Value Reference Range Interpretation Comments B/C Ratio (test code = B/C Ratio) 18 1 6-25 [place] 626922-08-28 06:26:00 Test Item Value Reference Range Interpretation Comments Globulin (test code = Globulin) 3.8 2.7-4.2 [place] 626922-08-28 06:26:00 Test Item Value Reference Range Interpretation Comments A/G Ratio (test code = A/G Ratio) 0.9 1 0.7-1.6 [place] 626922-08-28 06:26:00 Test Item Value Reference Range Interpretation Comments eGFR (test code = eGFR) 95 [place] 107532-08-28 06:26:00 Test Item Value Reference Range Interpretation Comments WBC (test code = WBC) 7.6 3.7-10.4 [place] 107532-08-28 06:26:00 Test Item Value Reference Range Interpretation Comments RBC (test code = RBC) 4.38 4.20-5.40 [place] 107532-08-28 06:26:00 Test Item Value Reference Range Interpretation Comments Hgb (test code = Hgb) 13.1 12.0-16.0 [place] 107532-08-28 06:26:00 Test Item Value Reference Range Interpretation Comments Hct (test code = Hct) 39.4 36.0-48.0 [place] 107532-08-28 06:26:00 Test Item Value Reference Range Interpretation Comments MCV (test code = MCV) 90.0 80.0-98.0 [place] 107532-08-28 06:26:00 Test Item Value Reference Range Interpretation Comments MCH (test code = MCH) 29.9 pg 27.0-31.0 [place] 107532-08-28 06:26:00 Test Item Value Reference Range Interpretation Comments MCHC (test code = MCHC) 33.2 32.0-36.0 [facility]WeztegxEBLBRMUKZZ9203-78-48 06:26:00 Test Item Value Reference Range Interpretation Comments RDW (test code = RDW) 13.2 11.5-14.5 [place] 107532-08-28 06:26:00 Test Item Value Reference Range Interpretation Comments Platelet (test code = Platelet) 176 133-450 [facility] PasoZfetjjsCZXBNAFEWT5699-58-79 06:26:00 Test Item Value Reference Range Interpretation Comments MPV (test code = MPV) 10.0 7.4-10.4 [facility] PasoOkxjepgQVPFMNBZNG0791-20-06 06:26:00 Test Item Value Reference Range Interpretation Comments Segs (test code = Segs) 58.0 45.0-75.0 [facility] PasoVhnorcaWMFBBIHKZN4975-77-04 06:26:00 Test Item Value Reference Range Interpretation Comments Lymphocytes (test code = Lymphocytes) 30.2 20.0-40.0 [facility] PasoLjnoodgCUHIUPHOET1737-51-56 06:26:00 Test Item Value Reference Range Interpretation Comments Monocytes (test code = Monocytes) 7.8 2.0-12.0 [facility] PasoUxrumikYNGWJUFBZI3325-62-99 06:26:00 Test Item Value Reference Range Interpretation Comments Eosinophils (test code = 3.7 See_Comment [A utomated message] The Eosinophils) system which ge nerated this result tra nsmitted reference range : <=4.0. The reference r lily was not used to int erpret this result as normal/abnormal . [facility] PasoSprflhaBHHSQBPWHY9322-92-82 06:26:00 Test Item Value Reference Range Interpretation Comments Basophils (test code = 0.3 See_Comment [Aut omated message] The Basophils) system which ge nerated this result tra nsmitted reference range : <=1.0. The reference r lily was not used to int erpret this result as normal/abnormal . [facility] PasoWupnajhHYFJGMCTBG4516-55-12 06:26:00 Test Item Value Reference Range Interpretation Comments Neutrophils # (test code = Neutrophils 4.4 1.5-8.1 #) [facility] PasoNyucobpXJOQUZAUEP6702-72-02 06:26:00 Test Item Value Reference Range Interpretation Comments Lymphocytes # (test code = Lymphocytes 2.3 1.0-5.5 #) [facility] PasoHvlujeaYMSMHAKJOI5750-38-32 06:26:00 Test Item Value Reference Range Interpretation Comments Monocytes # (test code 0.6 See_Comment [Aut omated message] The = Monocytes #) system which generated this result tra nsmitted reference range : <=0.8. The reference r lily was not used to int erpret this result as normal/abnormal . [facility] PasoZhszomvMJBIWDLPHD6712-66-74 06:26:00 Test Item Value Reference Range Interpretation Comments Eosinophils # (test code 0.3 See_Comment [A utomated message] The = Eosinophils #) system [employer] h generated this result tra nsmitted reference range : <=0.5. The reference r lily was not used to int erpret this result as normal/abnormal . [facility]Data[facility] [id number] 06:26:00 Test Item Value Reference Range Interpretation Comments HS Troponin I Baseline (test code = HS 46 Troponin I Baseline) [facility] [id number] 06:26:00 Test Item Value Reference Range Interpretation Comments Glucose Lvl (test code = Glucose Lvl) 122 70-99 [facility] [id number] 06:26:00 Test Item Value Reference Range Interpretation Comments BUN (test code = BUN) 10-18 [facility] [id number] 06:26:00 Test Item Value Reference Range Interpretation Comments Creatinine Lvl (test code = Creatinine 0.66 0.50-1.40 Lvl) [facility] [id number] 06:26:00 Test Item Value Reference Range Interpretation Comments Sodium Lvl (test code = Sodium Lvl) 140 135-145 [facility] [id number] 06:26:00 Test Item Value Reference Range Interpretation Comments Potassium Lvl (test code = Potassium 4.1 3.5-5.1 Lvl) [facility] [id number] 06:26:00 Test Item Value Reference Range Interpretation Comments Chloride Lvl (test code = Chloride Lvl) 109 95-109 [facility] [id number] 06:26:00 Test Item Value Reference Range Interpretation Comments CO2 (test code = CO2) 27 24-32 [facility] [id number] 06:26:00 Test Item Value Reference Range Interpretation Comments HS Troponin I Baseline (test code = HS 46 Troponin I Baseline) [facility] [id number] 06:26:00 Test Item Value Reference Range Interpretation Comments Glucose Lvl (test code = Glucose Lvl) 122 70-99 [facility] [id number] 06:26:00 Test Item Value Reference Range Interpretation Comments BUN (test code = BUN) 10-18 [place] 626922-08-28 06:26:00 Test Item Value Reference Range Interpretation Comments Creatinine Lvl (test code = Creatinine 0.66 0.50-1.40 Lvl) [place] 626922-08-28 06:26:00 Test Item Value Reference Range Interpretation Comments Sodium Lvl (test code = Sodium Lvl) 140 135-145 [place] 626922-08-28 06:26:00 Test Item Value Reference Range Interpretation Comments Potassium Lvl (test code = Potassium 4.1 3.5-5.1 Lvl) [place] 626922-08-28 06:26:00 Test Item Value Reference Range Interpretation Comments Chloride Lvl (test code = Chloride Lvl) 109 95-109 [place] 626922-08-28 06:26:00 Test Item Value Reference Range Interpretation Comments CO2 (test code = CO2) 27 -32 [place] 626922-08-28 06:26:00 Test Item Value Reference Range Interpretation Comments Calcium Lvl (test code = Calcium Lvl) 9.3 8.5-10.5 [place] 626922-08-28 06:26:00 Test Item Value Reference Range Interpretation Comments Total Protein (test code = Total 7.4 6.4-8.4 Protein) [place] 626922-08-28 06:26:00 Test Item Value Reference Range Interpretation Comments Calcium Lvl (test code = Calcium Lvl) 9.3 8.5-10.5 [place] 626922-08-28 06:26:00 Test Item Value Reference Range Interpretation Comments Albumin Lvl (test code = Albumin Lvl) 3.6 3.5-5.0 [place] 626922-08-28 06:26:00 Test Item Value Reference Range Interpretation Comments ALT (test code = ALT) 19 See_Comment [Auto mated message] The system which ge nerated this result transmit shaun reference range : <=65. The reference range was not used to interpr et this result as jackeline l/abnormal. [place] 626922-08-28 06:26:00 Test Item Value Reference Range Interpretation Comments AST (test code = AST) 19 See_Comment [Auto mated message] The system which ge nerated this result transmit shaun reference range : <=37. The reference range was not used to interpr et this result as jackeline l/abnormal. [place] 626922-08-28 06:26:00 Test Item Value Reference Range Interpretation Comments Alk Phos (test code = Alk Phos) 92 39-136 [place] 626922-08-28 06:26:00 Test Item Value Reference Range Interpretation Comments Bili Total (test code = Bili Total) 0.3 0.2-1.3 [place] 626922-08-28 06:26:00 Test Item Value Reference Range Interpretation Comments AGAP (test code = AGAP) 8.1 10.0-20.0 [place] 626922-08-28 06:26:00 Test Item Value Reference Range Interpretation Comments B/C Ratio (test code = B/C Ratio) 18 1 6-25 [place] [address]-08-28 06:26:00 Test Item Value Reference Range Interpretation Comments Globulin (test code = Globulin) 3.8 2.7-4.2 [place] 626922-08-28 06:26:00 Test Item Value Reference Range Interpretation Comments A/G Ratio (test code = A/G Ratio) 0.9 1 0.7-1.6 [place] 626922-08-28 06:26:00 Test Item Value Reference Range Interpretation Comments eGFR (test code = eGFR) 95 [place] 626922-08-28 06:26:00 Test Item Value Reference Range Interpretation Comments Total Protein (test code = Total 7.4 6.4-8.4 Protein) [place] 107532-08-28 06:26:00 Test Item Value Reference Range Interpretation Comments WBC (test code = WBC) 7.6 3.7-10.4 [place] [address]-08-28 06:26:00 Test Item Value Reference Range Interpretation Comments RBC (test code = RBC) 4.38 4.20-5.40 [place] 107532-08-28 06:26:00 Test Item Value Reference Range Interpretation Comments Hgb (test code = Hgb) 13.1 12.0-16.0 [place] [address]-08-28 06:26:00 Test Item Value Reference Range Interpretation Comments Hct (test code = Hct) 39.4 36.0-48.0 [facility] CampusEpblbpmTGZKEWDHIL2062-22-17 06:26:00 Test Item Value Reference Range Interpretation Comments MCV (test code = MCV) 90.0 80.0-98.0 [facility] CampusFahyjizEZZJQPBVZL1313-25-06 06:26:00 Test Item Value Reference Range Interpretation Comments MCH (test code = MCH) 29.9 pg 27.0-31.0 [facility] CampusEmoydnuCSDTTSIERA4853-92-35 06:26:00 Test Item Value Reference Range Interpretation Comments MCHC (test code = MCHC) 33.2 32.0-36.0 [facility]IqbzeflWEYHHDBJCU3533-69-10 06:26:00 Test Item Value Reference Range Interpretation Comments RDW (test code = RDW) 13.2 11.5-14.5 [facility]awDyiyuzzQCBYPNEILI2201-73-71 06:26:00 Test Item Value Reference Range Interpretation Comments Platelet (test code = Platelet) 176 133-450 [facility] PasoElsgtosTOQLEHVMUU7586-55-45 06:26:00 Test Item Value Reference Range Interpretation Comments MPV (test code = MPV) 10.0 7.4-10.4 [facility]2022-08-28 06:26:00 Test Item Value Reference Range Interpretation Comments Albumin Lvl (test code = Albumin Lvl) 3.6 3.5-5.0 [facility]awTprehqpQENWKUSDGS9482-12-12 06:26:00 Test Item Value Reference Range Interpretation Comments Segs (test code = Segs) 58.0 45.0-75.0 [facility]awSddcexvGZKKLFQSVT8540-89-21 06:26:00 Test Item Value Reference Range Interpretation Comments Lymphocytes (test code = Lymphocytes) 30.2 20.0-40.0 [facility] PasoCxcanvvBHHPWODLPZ3378-45-08 06:26:00 Test Item Value Reference Range Interpretation Comments Monocytes (test code = Monocytes) 7.8 2.0-12.0 [facility]awFocctpyATCZVOIOOK6162-12-55 06:26:00 Test Item Value Reference Range Interpretation Comments Eosinophils (test code = 3.7 See_Comment [A utomated message] The Eosinophils) system which ge nerated this result tra nsmitted reference range : <=4.0. The reference r lily was not used to int erpret this result as normal/abnormal . [place] [address]-08-28 06:26:00 Test Item Value Reference Range Interpretation Comments Basophils (test code = 0.3 See_Comment [Aut omated message] The Basophils) system which ge nerated this result tra nsmitted reference range : <=1.0. The reference r lily was not used to int erpret this result as normal/abnormal . [place] 107532-08-28 06:26:00 Test Item Value Reference Range Interpretation Comments Neutrophils # (test code = Neutrophils 4.4 1.5-8.1 #) [place] 107532-08-28 06:26:00 Test Item Value Reference Range Interpretation Comments Lymphocytes # (test code = Lymphocytes 2.3 1.0-5.5 #) [place] [address]-08-28 06:26:00 Test Item Value Reference Range Interpretation Comments Monocytes # (test code 0.6 See_Comment [Aut omated message] The = Monocytes #) system which generated this result tra nsmitted reference range : <=0.8. The reference r lily was not used to int erpret this result as normal/abnormal . [place] [address]-08-28 06:26:00 Test Item Value Reference Range Interpretation Comments Eosinophils # (test code 0.3 See_Comment [A utomated message] The = Eosinophils #) system whic h generated this result tra nsmitted reference range : <=0.5. The reference r lily was not used to int erpret this result as normal/abnormal . [facility] [id number] 06:26:00 Test Item Value Reference Range Interpretation Comments ALT (test code = ALT) 19 See_Comment [Auto mated message] The system which ge nerated this result transmit shaun reference range : <=65. The reference range was not used to interpr et this result as jackeline l/abnormal. [facility] fav[facility]or.it [id number] 06:26:00 Test Item Value Reference Range Interpretation Comments AST (test code = AST) 19 See_Comment [Auto mated message] The system which ge nerated this result transmit shaun reference range : <=37. The reference range was not used to interpr et this result as jackeline l/abnormal. [facility] fav[employer]or.it [id number] 06:26:00 Test Item Value Reference Range Interpretation Comments Alk Phos (test code = Alk Phos) 92 39-136 [facility]2022-08-28 06:26:00 Test Item Value Reference Range Interpretation Comments Bili Total (test code = Bili Total) 0.3 0.2-1.3 [place] 626922-08-28 06:26:00 Test Item Value Reference Range Interpretation Comments AGAP (test code = AGAP) 8.1 10.0-20.0 [place] 626922-08-28 06:26:00 Test Item Value Reference Range Interpretation Comments B/C Ratio (test code = B/C Ratio) 18 1 6-25 [place] 626922-08-28 06:26:00 Test Item Value Reference Range Interpretation Comments Globulin (test code = Globulin) 3.8 2.7-4.2 [place] 626922-08-28 06:26:00 Test Item Value Reference Range Interpretation Comments A/G Ratio (test code = A/G Ratio) 0.9 1 0.7-1.6 [place] 626922-08-28 06:26:00 Test Item Value Reference Range Interpretation Comments eGFR (test code = eGFR) 95 [place] 107532-08-28 06:26:00 Test Item Value Reference Range Interpretation Comments WBC (test code = WBC) 7.6 3.7-10.4 [place] 107532-08-28 06:26:00 Test Item Value Reference Range Interpretation Comments RBC (test code = RBC) 4.38 4.20-5.40 [place] 107532-08-28 06:26:00 Test Item Value Reference Range Interpretation Comments Hgb (test code = Hgb) 13.1 12.0-16.0 [place] 107532-08-28 06:26:00 Test Item Value Reference Range Interpretation Comments Hct (test code = Hct) 39.4 36.0-48.0 [place] 107532-08-28 06:26:00 Test Item Value Reference Range Interpretation Comments MCV (test code = MCV) 90.0 80.0-98.0 [place] 107532-08-28 06:26:00 Test Item Value Reference Range Interpretation Comments MCH (test code = MCH) 29.9 pg 27.0-31.0 [facility] PasoAaibsdlXTIAHBVUIV2851-30-73 06:26:00 Test Item Value Reference Range Interpretation Comments MCHC (test code = MCHC) 33.2 32.0-36.0 [facility] PasoAgdcsqbQLZLMKTBPO1216-76-82 06:26:00 Test Item Value Reference Range Interpretation Comments RDW (test code = RDW) 13.2 11.5-14.5 [facility] PasoJdswgdiABEZBACXOJ1751-59-15 06:26:00 Test Item Value Reference Range Interpretation Comments Platelet (test code = Platelet) 176 133-450 [facility] PasoGmmktbcVBWFNFWCGE2589-89-77 06:26:00 Test Item Value Reference Range Interpretation Comments MPV (test code = MPV) 10.0 7.4-10.4 [facility] PasoJrhiqouAUJQSEQVEB8660-20-92 06:26:00 Test Item Value Reference Range Interpretation Comments Segs (test code = Segs) 58.0 45.0-75.0 [facility] PasoQpmdbemLSDVXPAZAI9481-75-19 06:26:00 Test Item Value Reference Range Interpretation Comments Lymphocytes (test code = Lymphocytes) 30.2 20.0-40.0 [facility] PasoRthifaqKOWRMVAQGU1838-31-70 06:26:00 Test Item Value Reference Range Interpretation Comments Monocytes (test code = Monocytes) 7.8 2.0-12.0 [facility] PasoPefodabHMDRCGTUJF9478-47-59 06:26:00 Test Item Value Reference Range Interpretation Comments Eosinophils (test code = 3.7 See_Comment [A utomated message] The Eosinophils) system which ge nerated this result tra nsmitted reference range : <=4.0. The reference r lily was not used to int erpret this result as normal/abnormal . [facility] PasoBwchopiOZZJBNJLVU3181-66-61 06:26:00 Test Item Value Reference Range Interpretation Comments Basophils (test code = 0.3 See_Comment [Aut omated message] The Basophils) system which ge nerated this result tra nsmitted reference range : <=1.0. The reference r lily was not used to int erpret this result as normal/abnormal . [facility] PasoXadgpbdVQUSUZZUYN2237-81-17 06:26:00 Test Item Value Reference Range Interpretation Comments Neutrophils # (test code = Neutrophils 4.4 1.5-8.1 #) [facility] PasoPyqiyouMYSGIBXQBQ6184-12-17 06:26:00 Test Item Value Reference Range Interpretation Comments Lymphocytes # (test code = Lymphocytes 2.3 1.0-5.5 #) [facility] CampusCARDIAC [id number] 06:26:00 Test Item Value Reference Range Interpretation Comments HS Troponin I Baseline (test code = HS 46 Troponin I Baseline) [facility] [id number] 06:26:00 Test Item Value Reference Range Interpretation Comments Glucose Lvl (test code = Glucose Lvl) 122 70-99 [facility]2022-08-28 06:26:00 Test Item Value Reference Range Interpretation Comments BUN (test code = BUN) 12 7-22 [facility]2022-08-28 06:26:00 Test Item Value Reference Range Interpretation Comments Creatinine Lvl (test code = Creatinine 0.66 0.50-1.40 Lvl) [facility]2022-08-28 06:26:00 Test Item Value Reference Range Interpretation Comments Sodium Lvl (test code = Sodium Lvl) 140 135-145 [facility]2022-08-28 06:26:00 Test Item Value Reference Range Interpretation Comments Potassium Lvl (test code = Potassium 4.1 3.5-5.1 Lvl) [facility]2022-08-28 06:26:00 Test Item Value Reference Range Interpretation Comments Chloride Lvl (test code = Chloride Lvl) 109 95-109 [facility] PasoJmxhnujIIVNIWJSDF0933-17-98 06:26:00 Test Item Value Reference Range Interpretation Comments Monocytes # (test code 0.6 See_Comment [Aut omated message] The = Monocytes #) system which generated this result tra nsmitted reference range : <=0.8. The reference r lily was not used to int erpret this result as normal/abnormal . [facility]2022-08-28 06:26:00 Test Item Value Reference Range Interpretation Comments CO2 (test code = CO2) - [facility]2022-08-28 06:26:00 Test Item Value Reference Range Interpretation Comments Calcium Lvl (test code = Calcium Lvl) 9.3 8.5-10.5 [facility]2022-08-28 06:26:00 Test Item Value Reference Range Interpretation Comments Total Protein (test code = Total 7.4 6.4-8.4 Protein) [place] 626922-08-28 06:26:00 Test Item Value Reference Range Interpretation Comments Albumin Lvl (test code = Albumin Lvl) 3.6 3.5-5.0 [place] 626922-08-28 06:26:00 Test Item Value Reference Range Interpretation Comments ALT (test code = ALT) 19 See_Comment [Auto mated message] The system which ge nerated this result transmit shaun reference range : <=65. The reference range was not used to interpr et this result as jackeline l/abnormal. [place] 626922-08-28 06:26:00 Test Item Value Reference Range Interpretation Comments AST (test code = AST) 19 See_Comment [Auto mated message] The system which ge nerated this result transmit shaun reference range : <=37. The reference range was not used to interpr et this result as jackeline l/abnormal. [place] 626922-08-28 06:26:00 Test Item Value Reference Range Interpretation Comments Alk Phos (test code = Alk Phos) 92 39-136 [facility]2022-08-28 06:26:00 Test Item Value Reference Range Interpretation Comments Bili Total (test code = Bili Total) 0.3 0.2-1.3 [place] 626922-08-28 06:26:00 Test Item Value Reference Range Interpretation Comments AGAP (test code = AGAP) 8.1 10.0-20.0 [place] 626922-08-28 06:26:00 Test Item Value Reference Range Interpretation Comments B/C Ratio (test code = B/C Ratio) 18 1 6-25 [facility] PasoExmdnypZEFXGCATHL1036-71-98 06:26:00 Test Item Value Reference Range Interpretation Comments Eosinophils # (test code 0.3 See_Comment [A utomated message] The = Eosinophils #) system whic h generated this result tra nsmitted reference range : <=0.5. The reference r lily was not used to int erpret this result as normal/abnormal . [facility]2022-08-28 06:26:00 Test Item Value Reference Range Interpretation Comments Globulin (test code = Globulin) 3.8 2.7-4.[address]08-28 06:26:00 Test Item Value Reference Range Interpretation Comments A/G Ratio (test code = A/G Ratio) 0.9 1 0.7-1.6 [facility]2022-08-28 06:26:00 Test Item Value Reference Range Interpretation Comments eGFR (test code = eGFR) 95 [facility] PasoWqcvaevOYOSDCBKTM9761-32-76 06:26:00 Test Item Value Reference Range Interpretation Comments WBC (test code = WBC) 7.6 3.7-10.4 [place] 107532-08-28 06:26:00 Test Item Value Reference Range Interpretation Comments RBC (test code = RBC) 4.38 4.20-5.40 [place] 107532-08-28 06:26:00 Test Item Value Reference Range Interpretation Comments Hgb (test code = Hgb) 13.1 12.0-16.0 [place] 107532-08-28 06:26:00 Test Item Value Reference Range Interpretation Comments Hct (test code = Hct) 39.4 36.0-48.0 [facility] PasoKgzllqvIQUFZSGWNG9228-43-06 06:26:00 Test Item Value Reference Range Interpretation Comments MCV (test code = MCV) 90.0 80.0-98.0 [place] 107532-08-28 06:26:00 Test Item Value Reference Range Interpretation Comments MCH (test code = MCH) 29.9 pg 27.0-31.0 [place] 107532-08-28 06:26:00 Test Item Value Reference Range Interpretation Comments MCHC (test code = MCHC) 33.2 32.0-36.0 [place] 107532-08-28 06:26:00 Test Item Value Reference Range Interpretation Comments RDW (test code = RDW) 13.2 11.5-14.5 [place] 107532-08-28 06:26:00 Test Item Value Reference Range Interpretation Comments Platelet (test code = Platelet) 176 133-450 [place] 107532-08-28 06:26:00 Test Item Value Reference Range Interpretation Comments MPV (test code = MPV) 10.0 7.4-10.4 [place] 107532-08-28 06:26:00 Test Item Value Reference Range Interpretation Comments Segs (test code = Segs) 58.0 45.0-75.0 [place] 107532-08-28 06:26:00 Test Item Value Reference Range Interpretation Comments Lymphocytes (test code = Lymphocytes) 30.2 20.0-40.0 [place] [address]-08-28 06:26:00 Test Item Value Reference Range Interpretation Comments Monocytes (test code = Monocytes) 7.8 2.0-12.0 [place] 107532-08-28 06:26:00 Test Item Value Reference Range Interpretation Comments Eosinophils (test code = 3.7 See_Comment [A utomated message] The Eosinophils) system which ge nerated this result tra nsmitted reference range : <=4.0. The reference r lily was not used to int erpret this result as normal/abnormal . [place] [address]-08-28 06:26:00 Test Item Value Reference Range Interpretation Comments Basophils (test code = 0.3 See_Comment [Aut omated message] The Basophils) system which ge nerated this result tra nsmitted reference range : <=1.0. The reference r lily was not used to int erpret this result as normal/abnormal . [place] 107532-08-28 06:26:00 Test Item Value Reference Range Interpretation Comments Neutrophils # (test code = Neutrophils 4.4 1.5-8.1 #) [place] [address]-08-28 06:26:00 Test Item Value Reference Range Interpretation Comments Lymphocytes # (test code = Lymphocytes 2.3 1.0-5.5 #) [place] [address]-08-28 06:26:00 Test Item Value Reference Range Interpretation Comments Monocytes # (test code 0.6 See_Comment [Aut omated message] The = Monocytes #) system which generated this result tra nsmitted reference range : <=0.8. The reference r lily was not used to int erpret this result as normal/abnormal . [place] 107532-08-28 06:26:00 Test Item Value Reference Range Interpretation Comments Eosinophils # (test code 0.3 See_Comment [A utomated message] The = Eosinophils #) system [facility] center h generated this result tra nsmitted reference range : <=0.5. The reference r lily was not used to int erpret this result as normal/abnormal . [facility] [id number] 06:26:00 Test Item Value Reference Range Interpretation Comments HS Troponin I Baseline (test code = HS 46 Troponin I Baseline) [facility]2022-08-28 06:26:00 Test Item Value Reference Range Interpretation Comments Glucose Lvl (test code = Glucose Lvl) 122 70-99 [place] 626922-08-28 06:26:00 Test Item Value Reference Range Interpretation Comments BUN (test code = BUN) 12 7-22 [facility]2022-08-28 06:26:00 Test Item Value Reference Range Interpretation Comments Creatinine Lvl (test code = Creatinine 0.66 0.50-1.40 Lvl) [facility]2022-08-28 06:26:00 Test Item Value Reference Range Interpretation Comments Sodium Lvl (test code = Sodium Lvl) 140 135-145 [facility]2022-08-28 06:26:00 Test Item Value Reference Range Interpretation Comments Potassium Lvl (test code = Potassium 4.1 3.5-5.1 Lvl) [place] 626922-08-28 06:26:00 Test Item Value Reference Range Interpretation Comments Chloride Lvl (test code = Chloride Lvl) 109 95-109 [facility]2022-08-28 06:26:00 Test Item Value Reference Range Interpretation Comments CO2 (test code = CO2) 27 24-32 [facility]2022-08-28 06:26:00 Test Item Value Reference Range Interpretation Comments Calcium Lvl (test code = Calcium Lvl) 9.3 8.5-10.5 [facility]2022-08-28 06:26:00 Test Item Value Reference Range Interpretation Comments Total Protein (test code = Total 7.4 6.4-8.4 Protein) [facility]2022-08-28 06:26:00 Test Item Value Reference Range Interpretation Comments Albumin Lvl (test code = Albumin Lvl) 3.6 3.5-5.0 [facility]2022-08-28 06:26:00 Test Item Value Reference Range Interpretation Comments ALT (test code = ALT) 19 See_Comment [Auto mated message] The system which ge nerated this result transmit shaun reference range : <=65. The reference range was not used to interpr et this result as jackeline l/abnormal. [place] 626922-08-28 06:26:00 Test Item Value Reference Range Interpretation Comments AST (test code = AST) 19 See_Comment [Auto mated message] The system which ge nerated this result transmit shaun reference range : <=37. The reference range was not used to interpr et this result as jackeline l/abnormal. [place] 626922-08-28 06:26:00 Test Item Value Reference Range Interpretation Comments Alk Phos (test code = Alk Phos) 92 39-136 [place] [address]-08-28 06:26:00 Test Item Value Reference Range Interpretation Comments Bili Total (test code = Bili Total) 0.3 0.2-1.3 [place] [address]-08-28 06:26:00 Test Item Value Reference Range Interpretation Comments AGAP (test code = AGAP) 8.1 10.0-20.0 [place] [address]-08-28 06:26:00 Test Item Value Reference Range Interpretation Comments B/C Ratio (test code = B/C Ratio) 18 1 6-25 [place] [address]-08-28 06:26:00 Test Item Value Reference Range Interpretation Comments Globulin (test code = Globulin) 3.8 2.7-4.2 [place] [address]-08-28 06:26:00 Test Item Value Reference Range Interpretation Comments A/G Ratio (test code = A/G Ratio) 0.9 1 0.7-1.6 [place] [address]-08-28 06:26:00 Test Item Value Reference Range Interpretation Comments eGFR (test code = eGFR) 95 [place] [address]-08-28 06:26:00 Test Item Value Reference Range Interpretation Comments WBC (test code = WBC) 7.6 3.7-10.4 [place] [address]-08-28 06:26:00 Test Item Value Reference Range Interpretation Comments RBC (test code = RBC) 4.38 4.20-5.40 [place] 107532-08-28 06:26:00 Test Item Value Reference Range Interpretation Comments Hgb (test code = Hgb) 13.1 12.0-16.0 [place] 107532-08-28 06:26:00 Test Item Value Reference Range Interpretation Comments Hct (test code = Hct) 39.4 36.0-48.0 [place] 107532-08-28 06:26:00 Test Item Value Reference Range Interpretation Comments MCV (test code = MCV) 90.0 80.0-98.0 [place] 107532-08-28 06:26:00 Test Item Value Reference Range Interpretation Comments MCH (test code = MCH) 29.9 pg 27.0-31.0 [place] 107532-08-28 06:26:00 Test Item Value Reference Range Interpretation Comments MCHC (test code = MCHC) 33.2 32.0-36.0 [place] 107532-08-28 06:26:00 Test Item Value Reference Range Interpretation Comments RDW (test code = RDW) 13.2 11.5-14.5 [place] 107532-08-28 06:26:00 Test Item Value Reference Range Interpretation Comments Platelet (test code = Platelet) 176 133-450 [id number] 06:26:00 Test Item Value Reference Range Interpretation Comments MPV (test code = MPV) 10.0 7.4-10.4 [facility] PasoToscmsfYEQJRGTTSF5756-83-51 06:26:00 Test Item Value Reference Range Interpretation Comments Segs (test code = Segs) 58.0 45.0-75.0 [facility] PasoSbtcsiyGTEFUKVZXQ0852-59-54 06:26:00 Test Item Value Reference Range Interpretation Comments Lymphocytes (test code = Lymphocytes) 30.2 20.0-40.0 [place] 107532-08-28 06:26:00 Test Item Value Reference Range Interpretation Comments Monocytes (test code = Monocytes) 7.8 2.0-12.0 [place] [address]-08-28 06:26:00 Test Item Value Reference Range Interpretation Comments Eosinophils (test code = 3.7 See_Comment [A utomated message] The Eosinophils) system which ge nerated this result tra nsmitted reference range : <=4.0. The reference r lily was not used to int erpret this result as normal/abnormal . [place] 107532-08-28 06:26:00 Test Item Value Reference Range Interpretation Comments Basophils (test code = 0.3 See_Comment [Aut omated message] The Basophils) system which ge nerated this result tra nsmitted reference range : <=1.0. The reference r lily was not used to int erpret this result as normal/abnormal . [facility] PasoGyfsehbCUWCITNBPD7695-67-23 06:26:00 Test Item Value Reference Range Interpretation Comments Neutrophils # (test code = Neutrophils 4.4 1.5-8.1 #) [facility]pbATTMHWCNZJ0475-10-85 06:26:00 Test Item Value Reference Range Interpretation Comments Lymphocytes # (test code = Lymphocytes 2.3 1.0-5.5 #) [facility] PasoGfpisxhUYXPHGIQLJ9314-96-57 06:26:00 Test Item Value Reference Range Interpretation Comments Monocytes # (test code 0.6 See_Comment [Aut omated message] The = Monocytes #) system which generated this result tra nsmitted reference range : <=0.8. The reference r lily was not used to int erpret this result as normal/abnormal . [facility] PasoXiicapwHCYUZKHVHV3266-96-93 06:26:00 Test Item Value Reference Range Interpretation Comments Eosinophils # (test code 0.3 See_Comment [A utomated message] The = Eosinophils #) system whic h generated this result tra nsmitted reference range : <=0.5. The reference r lily was not used to int erpret this result as normal/abnormal . [facility] [id number] 06:26:00 Test Item Value Reference Range Interpretation Comments HS Troponin I Baseline (test code = HS 46 Troponin I Baseline) [facility]ThingMagic [id number] 06:26:00 Test Item Value Reference Range Interpretation Comments Glucose Lvl (test code = Glucose Lvl) 122 70-99 [facility] [id number] 06:26:00 Test Item Value Reference Range Interpretation Comments BUN (test code = BUN) 12 7-22 [facility]2022-08-28 06:26:00 Test Item Value Reference Range Interpretation Comments Creatinine Lvl (test code = Creatinine 0.66 0.50-1.40 Lvl) [facility] [id number] 06:26:00 Test Item Value Reference Range Interpretation Comments Sodium Lvl (test code = Sodium Lvl) 140 135-145 [place] 626922-08-28 06:26:00 Test Item Value Reference Range Interpretation Comments Potassium Lvl (test code = Potassium 4.1 3.5-5.1 Lvl) [place] 626922-08-28 06:26:00 Test Item Value Reference Range Interpretation Comments Chloride Lvl (test code = Chloride Lvl) 109 95-109 [place] 626922-08-28 06:26:00 Test Item Value Reference Range Interpretation Comments CO2 (test code = CO2) 27 24-32 [place] 626922-08-28 06:26:00 Test Item Value Reference Range Interpretation Comments Calcium Lvl (test code = Calcium Lvl) 9.3 8.5-10.5 [place] 626922-08-28 06:26:00 Test Item Value Reference Range Interpretation Comments Total Protein (test code = Total 7.4 6.4-8.4 Protein) [place] 626922-08-28 06:26:00 Test Item Value Reference Range Interpretation Comments Albumin Lvl (test code = Albumin Lvl) 3.6 3.5-5.0 [place] 626922-08-28 06:26:00 Test Item Value Reference Range Interpretation Comments ALT (test code = ALT) 19 See_Comment [Auto mated message] The system which ge nerated this result transmit shaun reference range : <=65. The reference range was not used to interpr et this result as jackeline l/abnormal. [place] 626922-08-28 06:26:00 Test Item Value Reference Range Interpretation Comments AST (test code = AST) 19 See_Comment [Auto mated message] The system which ge nerated this result transmit shaun reference range : <=37. The reference range was not used to interpr et this result as jackeline l/abnormal. [place] 626922-08-28 06:26:00 Test Item Value Reference Range Interpretation Comments Alk Phos (test code = Alk Phos) 92 39-136 [place] 626922-08-28 06:26:00 Test Item Value Reference Range Interpretation Comments Bili Total (test code = Bili Total) 0.3 0.2-1.3 [place] 626922-08-28 06:26:00 Test Item Value Reference Range Interpretation Comments AGAP (test code = AGAP) 8.1 10.0-20.0 [place] 626922-08-28 06:26:00 Test Item Value Reference Range Interpretation Comments B/C Ratio (test code = B/C Ratio) 18 1 6-25 [place] 626922-08-28 06:26:00 Test Item Value Reference Range Interpretation Comments Globulin (test code = Globulin) 3.8 2.7-4.2 [place] 626922-08-28 06:26:00 Test Item Value Reference Range Interpretation Comments A/G Ratio (test code = A/G Ratio) 0.9 1 0.7-1.6 [place] 626922-08-28 06:26:00 Test Item Value Reference Range Interpretation Comments eGFR (test code = eGFR) 95 [facility] Pa[id number] 06:26:00 Test Item Value Reference Range Interpretation Comments WBC (test code = WBC) 7.6 3.7-10.4 [place] 107532-08-28 06:26:00 Test Item Value Reference Range Interpretation Comments RBC (test code = RBC) 4.38 4.20-5.40 [place] 107532-08-28 06:26:00 Test Item Value Reference Range Interpretation Comments Hgb (test code = Hgb) 13.1 12.0-16.0 [place] 107532-08-28 06:26:00 Test Item Value Reference Range Interpretation Comments Hct (test code = Hct) 39.4 36.0-48.0 [place] 107532-08-28 06:26:00 Test Item Value Reference Range Interpretation Comments MCV (test code = MCV) 90.0 80.0-98.0 [place] 107532-08-28 06:26:00 Test Item Value Reference Range Interpretation Comments MCH (test code = MCH) 29.9 pg 27.0-31.0 [place] 107532-08-28 06:26:00 Test Item Value Reference Range Interpretation Comments MCHC (test code = MCHC) 33.2 32.0-36.0 [place] 107532-08-28 06:26:00 Test Item Value Reference Range Interpretation Comments RDW (test code = RDW) 13.2 11.5-14.5 [place] 107532-08-28 06:26:00 Test Item Value Reference Range Interpretation Comments Platelet (test code = Platelet) 176 133-450 [place] 107532-08-28 06:26:00 Test Item Value Reference Range Interpretation Comments MPV (test code = MPV) 10.0 7.4-10.4 [place] 107532-08-28 06:26:00 Test Item Value Reference Range Interpretation Comments Segs (test code = Segs) 58.0 45.0-75.0 [place] 107532-08-28 06:26:00 Test Item Value Reference Range Interpretation Comments Lymphocytes (test code = Lymphocytes) 30.2 20.0-40.0 [place] [address]-08-28 06:26:00 Test Item Value Reference Range Interpretation Comments Monocytes (test code = Monocytes) 7.8 2.0-12.0 [place] 107532-08-28 06:26:00 Test Item Value Reference Range Interpretation Comments Eosinophils (test code = 3.7 See_Comment [A utomated message] The Eosinophils) system which ge nerated this result tra nsmitted reference range : <=4.0. The reference r lily was not used to int erpret this result as normal/abnormal . [facility] PasoW[id number] 06:26:00 Test Item Value Reference Range Interpretation Comments Basophils (test code = 0.3 See_Comment [Aut omated message] The Basophils) system which ge nerated this result tra nsmitted reference range : <=1.0. The reference r lily was not used to int erpret this result as normal/abnormal . [facility] PasoAiamqyrRXSCHBIYWA1095-72-68 06:26:00 Test Item Value Reference Range Interpretation Comments Neutrophils # (test code = Neutrophils 4.4 1.5-8.1 #) [place] 107532-08-28 06:26:00 Test Item Value Reference Range Interpretation Comments Lymphocytes # (test code = Lymphocytes 2.3 1.0-5.5 #) [place] 107532-08-28 06:26:00 Test Item Value Reference Range Interpretation Comments Monocytes # (test code 0.6 See_Comment [Aut omated message] The = Monocytes #) system which generated this result tra nsmitted reference range : <=0.8. The reference r lily was not used to int erpret this result as normal/abnormal . [facility] CampusAgmnizqHZTRBBIDMR2523-40-40 06:26:00 Test Item Value Reference Range Interpretation Comments Eosinophils # (test code 0.3 See_Comment [A utomated message] The = Eosinophils #) system whic h generated this result tra nsmitted reference range : <=0.5. The reference r lily was not used to int erpret this result as normal/abnormal . [facility] [id number] 06:26:00 Test Item Value Reference Range Interpretation Comments HS Troponin I Baseline (test code = HS 46 Troponin I Baseline) [facility] [id number] 06:26:00 Test Item Value Reference Range Interpretation Comments Glucose Lvl (test code = Glucose Lvl) 122 70-99 [facility] [id number] 06:26:00 Test Item Value Reference Range Interpretation Comments BUN (test code = BUN) 12 -22 [facility] [id number] 06:26:00 Test Item Value Reference Range Interpretation Comments Creatinine Lvl (test code = Creatinine 0.66 0.50-1.40 Lvl) [facility] [id number] 06:26:00 Test Item Value Reference Range Interpretation Comments Sodium Lvl (test code = Sodium Lvl) 140 135-145 [facility] [id number] 06:26:00 Test Item Value Reference Range Interpretation Comments Potassium Lvl (test code = Potassium 4.1 3.5-5.1 Lvl) [facility] [id number] 06:26:00 Test Item Value Reference Range Interpretation Comments Chloride Lvl (test code = Chloride Lvl) 109 95-109 [facility] [id number] 06:26:00 Test Item Value Reference Range Interpretation Comments CO2 (test code = CO2) 27 24-32 [facility] [id number] 06:26:00 Test Item Value Reference Range Interpretation Comments Calcium Lvl (test code = Calcium Lvl) 9.3 8.5-10.5 [facility] [id number] 06:26:00 Test Item Value Reference Range Interpretation Comments Total Protein (test code = Total 7.4 6.4-8.4 Protein) [facility] [id number] 06:26:00 Test Item Value Reference Range Interpretation Comments Albumin Lvl (test code = Albumin Lvl) 3.6 3.5-5.0 [facility] [id number] 06:26:00 Test Item Value Reference Range Interpretation Comments ALT (test code = ALT) 19 See_Comment [Auto mated message] The system which ge nerated this result transmit shaun reference range : <=65. The reference range was not used to interpr et this result as jackeline l/abnormal. [facility] [id number] 06:26:00 Test Item Value Reference Range Interpretation Comments AST (test code = AST) 19 See_Comment [Auto mated message] The system which ge nerated this result transmit shaun reference range : <=37. The reference range was not used to interpr et this result as jackeline l/abnormal. [facility] [employer] [id number] 06:26:00 Test Item Value Reference Range Interpretation Comments Alk Phos (test code = Alk Phos) 92 39-136 [facility] [id number] 06:26:00 Test Item Value Reference Range Interpretation Comments Bili Total (test code = Bili Total) 0.3 0.2-1.3 [facility] [id number] 06:26:00 Test Item Value Reference Range Interpretation Comments AGAP (test code = AGAP) 8.1 10.0-20.0 [facility] [id number] 06:26:00 Test Item Value Reference Range Interpretation Comments B/C Ratio (test code = B/C Ratio) 18 1 6-25 [facility] [id number] 06:26:00 Test Item Value Reference Range Interpretation Comments Globulin (test code = Globulin) 3.8 2.7-4.2 [facility] [id number] 06:26:00 Test Item Value Reference Range Interpretation Comments A/G Ratio (test code = A/G Ratio) 0.9 1 0.7-1.6 [facility] [id number] 06:26:00 Test Item Value Reference Range Interpretation Comments eGFR (test code = eGFR) 95 [facility] [id number] 06:26:00 Test Item Value Reference Range Interpretation Comments WBC (test code = WBC) 7.6 3.7-10.4 [place] 107532-08-28 06:26:00 Test Item Value Reference Range Interpretation Comments RBC (test code = RBC) 4.38 4.20-5.40 [place] 107532-08-28 06:26:00 Test Item Value Reference Range Interpretation Comments Hgb (test code = Hgb) 13.1 12.0-16.0 [place] 107532-08-28 06:26:00 Test Item Value Reference Range Interpretation Comments Hct (test code = Hct) 39.4 36.0-48.0 [place] 107532-08-28 06:26:00 Test Item Value Reference Range Interpretation Comments MCV (test code = MCV) 90.0 80.0-98.0 [place] 107532-08-28 06:26:00 Test Item Value Reference Range Interpretation Comments MCH (test code = MCH) 29.9 pg 27.0-31.0 [place] 107532-08-28 06:26:00 Test Item Value Reference Range Interpretation Comments MCHC (test code = MCHC) 33.2 32.0-36.0 [facility] [id number] 06:26:00 Test Item Value Reference Range Interpretation Comments RDW (test code = RDW) 13.2 11.5-14.5 [facility] [id number] 06:26:00 Test Item Value Reference Range Interpretation Comments Platelet (test code = Platelet) 176 133-450 [facility] [id number] 06:26:00 Test Item Value Reference Range Interpretation Comments MPV (test code = MPV) 10.0 7.4-10.4 [place] 107532-08-28 06:26:00 Test Item Value Reference Range Interpretation Comments Segs (test code = Segs) 58.0 45.0-75.0 [place] 107532-08-28 06:26:00 Test Item Value Reference Range Interpretation Comments Lymphocytes (test code = Lymphocytes) 30.2 20.0-40.0 [place] 107532-08-28 06:26:00 Test Item Value Reference Range Interpretation Comments Monocytes (test code = Monocytes) 7.8 2.0-12.0 [id number] 06:26:00 Test Item Value Reference Range Interpretation Comments Eosinophils (test code = 3.7 See_Comment [A utomated message] The Eosinophils) system which ge nerated this result tra nsmitted reference range : <=4.0. The reference r lily was not used to int erpret this result as normal/abnormal . [facility] [id number] 06:26:00 Test Item Value Reference Range Interpretation Comments Basophils (test code = 0.3 See_Comment [Aut omated message] The Basophils) system which ge nerated this result tra nsmitted reference range : <=1.0. The reference r lily was not used to int erpret this result as normal/abnormal . [facility] [id number] 06:26:00 Test Item Value Reference Range Interpretation Comments Neutrophils # (test code = Neutrophils 4.4 1.5-8.1 #) [facility] [id number] 06:26:00 Test Item Value Reference Range Interpretation Comments Lymphocytes # (test code = Lymphocytes 2.3 1.0-5.5 #) [facility] [id number] 06:26:00 Test Item Value Reference Range Interpretation Comments Monocytes # (test code 0.6 See_Comment [Aut omated message] The = Monocytes #) system which generated this result tra nsmitted reference range : <=0.8. The reference r lily was not used to int erpret this result as normal/abnormal . [facility] [id number] 06:26:00 Test Item Value Reference Range Interpretation Comments Eosinophils # (test code 0.3 See_Comment [A utomated message] The = Eosinophils #) system whic h generated this result tra nsmitted reference range : <=0.5. The reference r lily was not used to int erpret this result as normal/abnormal . [facility] [id number] 06:26:00 Test Item Value Reference Range Interpretation Comments HS Troponin I Baseline (test code = HS 46 Troponin I Baseline) [facility]CHE[facility] [id number] 06:26:00 Test Item Value Reference Range Interpretation Comments Glucose Lvl (test code = Glucose Lvl) 122 70-99 [place] 626922-08-28 06:26:00 Test Item Value Reference Range Interpretation Comments BUN (test code = BUN) 12 7-22 [place] 626922-08-28 06:26:00 Test Item Value Reference Range Interpretation Comments Creatinine Lvl (test code = Creatinine 0.66 0.50-1.40 Lvl) [place] 626922-08-28 06:26:00 Test Item Value Reference Range Interpretation Comments Sodium Lvl (test code = Sodium Lvl) 140 135-145 [place] 626922-08-28 06:26:00 Test Item Value Reference Range Interpretation Comments Potassium Lvl (test code = Potassium 4.1 3.5-5.1 Lvl) [place] 626922-08-28 06:26:00 Test Item Value Reference Range Interpretation Comments Chloride Lvl (test code = Chloride Lvl) 109 95-109 [place] 626922-08-28 06:26:00 Test Item Value Reference Range Interpretation Comments CO2 (test code = CO2) 27 24-32 [place] 626922-08-28 06:26:00 Test Item Value Reference Range Interpretation Comments Calcium Lvl (test code = Calcium Lvl) 9.3 8.5-10.5 [place] 626922-08-28 06:26:00 Test Item Value Reference Range Interpretation Comments Total Protein (test code = Total 7.4 6.4-8.4 Protein) [place] 626922-08-28 06:26:00 Test Item Value Reference Range Interpretation Comments Albumin Lvl (test code = Albumin Lvl) 3.6 3.5-5.0 [place] 626922-08-28 06:26:00 Test Item Value Reference Range Interpretation Comments ALT (test code = ALT) 19 See_Comment [Auto mated message] The system which ge nerated this result transmit shaun reference range : <=65. The reference range was not used to interpr et this result as jackeline l/abnormal. [place] 626922-08-28 06:26:00 Test Item Value Reference Range Interpretation Comments AST (test code = AST) 19 See_Comment [Auto mated message] The system which ge nerated this result transmit shaun reference range : <=37. The reference range was not used to interpr et this result as jackeline l/abnormal. [place] 626922-08-28 06:26:00 Test Item Value Reference Range Interpretation Comments Alk Phos (test code = Alk Phos) 92 39-136 [place] 626922-08-28 06:26:00 Test Item Value Reference Range Interpretation Comments Bili Total (test code = Bili Total) 0.3 0.2-1.3 [place] 626922-08-28 06:26:00 Test Item Value Reference Range Interpretation Comments AGAP (test code = AGAP) 8.1 10.0-20.0 [place] 626922-08-28 06:26:00 Test Item Value Reference Range Interpretation Comments B/C Ratio (test code = B/C Ratio) 18 1 6-25 [place] [address]-08-28 06:26:00 Test Item Value Reference Range Interpretation Comments Globulin (test code = Globulin) 3.8 2.7-4.2 [place] 626922-08-28 06:26:00 Test Item Value Reference Range Interpretation Comments A/G Ratio (test code = A/G Ratio) 0.9 1 0.7-1.6 [place] [address]-08-28 06:26:00 Test Item Value Reference Range Interpretation Comments eGFR (test code = eGFR) 95 [place] 107532-08-28 06:26:00 Test Item Value Reference Range Interpretation Comments WBC (test code = WBC) 7.6 3.7-10.4 [place] 107532-08-28 06:26:00 Test Item Value Reference Range Interpretation Comments RBC (test code = RBC) 4.38 4.20-5.40 [place] [address]-08-28 06:26:00 Test Item Value Reference Range Interpretation Comments Hgb (test code = Hgb) 13.1 12.0-16.0 [place] [address]-08-28 06:26:00 Test Item Value Reference Range Interpretation Comments Hct (test code = Hct) 39.4 36.0-48.0 [place] [address]-08-28 06:26:00 Test Item Value Reference Range Interpretation Comments MCV (test code = MCV) 90.0 80.0-98.0 [facility]BdssfksFHWGVGIWNM4072-73-25 06:26:00 Test Item Value Reference Range Interpretation Comments MCH (test code = MCH) 29.9 pg 27.0-31.0 [facility] PasoQewtwksNPXZRTYOQV7848-36-15 06:26:00 Test Item Value Reference Range Interpretation Comments MCHC (test code = MCHC) 33.2 32.0-36.0 [facility] PasoKuqochzBJGAAFTDMM4205-79-60 06:26:00 Test Item Value Reference Range Interpretation Comments RDW (test code = RDW) 13.2 11.5-14.5 [facility] PasoVejwonfJDHABLBDJX1866-34-17 06:26:00 Test Item Value Reference Range Interpretation Comments Platelet (test code = Platelet) 176 133-450 [facility] PasoAitmppwOBTSGUNXIR0156-05-73 06:26:00 Test Item Value Reference Range Interpretation Comments MPV (test code = MPV) 10.0 7.4-10.4 [facility] PasoUnqlowwYHAZESLANN1911-05-73 06:26:00 Test Item Value Reference Range Interpretation Comments Segs (test code = Segs) 58.0 45.0-75.0 [facility] PasoGtopygaSTRZISQHDV3314-30-03 06:26:00 Test Item Value Reference Range Interpretation Comments Lymphocytes (test code = Lymphocytes) 30.2 20.0-40.0 [facility] PasoQrfbpllVRPNPBHHDJ7908-94-95 06:26:00 Test Item Value Reference Range Interpretation Comments Monocytes (test code = Monocytes) 7.8 2.0-12.0 [facility] PasoUwsnfykGTAVEYNBKY2556-60-14 06:26:00 Test Item Value Reference Range Interpretation Comments Eosinophils (test code = 3.7 See_Comment [A utomated message] The Eosinophils) system which ge nerated this result tra nsmitted reference range : <=4.0. The reference r lily was not used to int erpret this result as normal/abnormal . [facility] PasoTzzjpirMCDLCQXDMS5223-85-10 06:26:00 Test Item Value Reference Range Interpretation Comments Basophils (test code = 0.3 See_Comment [Aut omated message] The Basophils) system which ge nerated this result tra nsmitted reference range : <=1.0. The reference r lily was not used to int erpret this result as normal/abnormal . [place] [address]-08-28 06:26:00 Test Item Value Reference Range Interpretation Comments Neutrophils # (test code = Neutrophils 4.4 1.5-8.1 #) [facility] PasoHhyqpkfCULMHMOWGW8486-02-58 06:26:00 Test Item Value Reference Range Interpretation Comments Lymphocytes # (test code = Lymphocytes 2.3 1.0-5.5 #) [facility] PasoJwzitvaGOTNFZDYXH7098-45-22 06:26:00 Test Item Value Reference Range Interpretation Comments Monocytes # (test code 0.6 See_Comment [Aut omated message] The = Monocytes #) system which generated this result tra nsmitted reference range : <=0.8. The reference r lily was not used to int erpret this result as normal/abnormal . [facility] PasoQwojmrfJVEYESMOCV1953 06:26:00 Test Item Value Reference Range Interpretation Comments Eosinophils # (test code 0.3 See_Comment [A utomated message] The = Eosinophils #) system whic h generated this result tra nsmitted reference range : <=0.5. The reference r lily was not used to int erpret this result as normal/abnormal . [facility]CARD[facility] [id number] 06:26:00 Test Item Value Reference Range Interpretation Comments HS Troponin I Baseline (test code = HS 46 Troponin I Baseline) [facility]Th[facility] [id number] 06:26:00 Test Item Value Reference Range Interpretation Comments Glucose Lvl (test code = Glucose Lvl) 122 70-99 [facility] [id number] 06:26:00 Test Item Value Reference Range Interpretation Comments BUN (test code = BUN) 12 7-22 [facility] [id number] 06:26:00 Test Item Value Reference Range Interpretation Comments Creatinine Lvl (test code = Creatinine 0.66 0.50-1.40 Lvl) [facility] [id number] 06:26:00 Test Item Value Reference Range Interpretation Comments Sodium Lvl (test code = Sodium Lvl) 140 135-145 [facility] [id number] 06:26:00 Test Item Value Reference Range Interpretation Comments Potassium Lvl (test code = Potassium 4.1 3.5-5.1 Lvl) [facility] [id number] 06:26:00 Test Item Value Reference Range Interpretation Comments Chloride Lvl (test code = Chloride Lvl) 109 95-109 [facility] [id number] 06:26:00 Test Item Value Reference Range Interpretation Comments CO2 (test code = CO2) 27 24-32 [facility]TabSquareN[id number] 06:26:00 Test Item Value Reference Range Interpretation Comments Calcium Lvl (test code = Calcium Lvl) 9.3 8.5-10.5 [facility] [id number] 06:26:00 Test Item Value Reference Range Interpretation Comments Total Protein (test code = Total 7.4 6.4-8.4 Protein) [facility]ownTabSquareNOV[facility] [id number] 06:26:00 Test Item Value Reference Range Interpretation Comments Albumin Lvl (test code = Albumin Lvl) 3.6 3.5-5.0 [facility] [id number] 06:26:00 Test Item Value Reference Range Interpretation Comments ALT (test code = ALT) 19 See_Comment [Auto mated message] The system which ge nerated this result transmit shaun reference range : <=65. The reference range was not used to interpr et this result as jackeline l/abnormal. [facility] [id number] 06:26:00 Test Item Value Reference Range Interpretation Comments AST (test code = AST) 19 See_Comment [Auto mated message] The system which ge nerated this result transmit shaun reference range : <=37. The reference range was not used to interpr et this result as jackeline l/abnormal. [facility] fav.or.it [id number] 06:26:00 Test Item Value Reference Range Interpretation Comments Alk Phos (test code = Alk Phos) 92 39-136 [facility] [id number] 06:26:00 Test Item Value Reference Range Interpretation Comments Bili Total (test code = Bili Total) 0.3 0.2-1.3 [facility] [id number] 06:26:00 Test Item Value Reference Range Interpretation Comments AGAP (test code = AGAP) 8.1 10.0-20.0 [facility] [id number] 06:26:00 Test Item Value Reference Range Interpretation Comments B/C Ratio (test code = B/C Ratio) 18 1 6-25 [place] 626922-08-28 06:26:00 Test Item Value Reference Range Interpretation Comments Globulin (test code = Globulin) 3.8 2.7-4.2 [place] 626922-08-28 06:26:00 Test Item Value Reference Range Interpretation Comments A/G Ratio (test code = A/G Ratio) 0.9 1 0.7-1.6 [place] 626922-08-28 06:26:00 Test Item Value Reference Range Interpretation Comments eGFR (test code = eGFR) 95 [place] 107532-08-28 06:26:00 Test Item Value Reference Range Interpretation Comments WBC (test code = WBC) 7.6 3.7-10.4 [place] [address]-08-28 06:26:00 Test Item Value Reference Range Interpretation Comments RBC (test code = RBC) 4.38 4.20-5.40 [place] 107532-08-28 06:26:00 Test Item Value Reference Range Interpretation Comments Hgb (test code = Hgb) 13.1 12.0-16.0 [place] 107532-08-28 06:26:00 Test Item Value Reference Range Interpretation Comments Hct (test code = Hct) 39.4 36.0-48.0 [place] 107532-08-28 06:26:00 Test Item Value Reference Range Interpretation Comments MCV (test code = MCV) 90.0 80.0-98.0 [place] 107532-08-28 06:26:00 Test Item Value Reference Range Interpretation Comments MCH (test code = MCH) 29.9 pg 27.0-31.0 [facility] [id number] 06:26:00 Test Item Value Reference Range Interpretation Comments MCHC (test code = MCHC) 33.2 32.0-36.0 [place] 107532-08-28 06:26:00 Test Item Value Reference Range Interpretation Comments RDW (test code = RDW) 13.2 11.5-14.5 [place] 107532-08-28 06:26:00 Test Item Value Reference Range Interpretation Comments Platelet (test code = Platelet) 176 133-450 [place] 107532-08-28 06:26:00 Test Item Value Reference Range Interpretation Comments MPV (test code = MPV) 10.0 7.4-10.4 [place] 107532-08-28 06:26:00 Test Item Value Reference Range Interpretation Comments Segs (test code = Segs) 58.0 45.0-75.0 [place] 107532-08-28 06:26:00 Test Item Value Reference Range Interpretation Comments Lymphocytes (test code = Lymphocytes) 30.2 20.0-40.0 [place] 107532-08-28 06:26:00 Test Item Value Reference Range Interpretation Comments Monocytes (test code = Monocytes) 7.8 2.0-12.0 [place] [address]-08-28 06:26:00 Test Item Value Reference Range Interpretation Comments Eosinophils (test code = 3.7 See_Comment [A utomated message] The Eosinophils) system which ge nerated this result tra nsmitted reference range : <=4.0. The reference r lily was not used to int erpret this result as normal/abnormal . [facility] PasoOlfcacfORTWKZAXQE2515-55-73 06:26:00 Test Item Value Reference Range Interpretation Comments Basophils (test code = 0.3 See_Comment [Aut omated message] The Basophils) system which ge nerated this result tra nsmitted reference range : <=1.0. The reference r lily was not used to int erpret this result as normal/abnormal . [place] 107532-08-28 06:26:00 Test Item Value Reference Range Interpretation Comments Neutrophils # (test code = Neutrophils 4.4 1.5-8.1 #) [place] 107532-08-28 06:26:00 Test Item Value Reference Range Interpretation Comments Lymphocytes # (test code = Lymphocytes 2.3 1.0-5.5 #) [place] [address]-08-28 06:26:00 Test Item Value Reference Range Interpretation Comments Monocytes # (test code 0.6 See_Comment [Aut omated message] The = Monocytes #) system which generated this result tra nsmitted reference range : <=0.8. The reference r lily was not used to int erpret this result as normal/abnormal . [place] 107532-08-28 06:26:00 Test Item Value Reference Range Interpretation Comments Eosinophils # (test code 0.3 See_Comment [A utomated message] The = Eosinophils #) system Cyrus[employer] h generated this result tra nsmitted reference range : <=0.5. The reference r lily was not used to int erpret this result as normal/abnormal . [facility]CARD[facility] [id number] 06:26:00 Test Item Value Reference Range Interpretation Comments HS Troponin I Baseline (test code = HS 46 Troponin I Baseline) [facility] [id number] 06:26:00 Test Item Value Reference Range Interpretation Comments Glucose Lvl (test code = Glucose Lvl) 122 70-99 [facility] [id number] 06:26:00 Test Item Value Reference Range Interpretation Comments BUN (test code = BUN) 12 7-22 [facility] [id number] 06:26:00 Test Item Value Reference Range Interpretation Comments Creatinine Lvl (test code = Creatinine 0.66 0.50-1.40 Lvl) [facility] [id number] 06:26:00 Test Item Value Reference Range Interpretation Comments Sodium Lvl (test code = Sodium Lvl) 140 135-145 [facility] [id number] 06:26:00 Test Item Value Reference Range Interpretation Comments Potassium Lvl (test code = Potassium 4.1 3.5-5.1 Lvl) [facility] [id number] 06:26:00 Test Item Value Reference Range Interpretation Comments Chloride Lvl (test code = Chloride Lvl) 109 95-109 [facility] [id number] 06:26:00 Test Item Value Reference Range Interpretation Comments CO2 (test code = CO2) 27 24-32 [facility] [id number] 06:26:00 Test Item Value Reference Range Interpretation Comments Calcium Lvl (test code = Calcium Lvl) 9.3 8.5-10.5 [facility] [id number] 06:26:00 Test Item Value Reference Range Interpretation Comments Total Protein (test code = Total 7.4 6.4-8.4 Protein) [facility] [id number] 06:26:00 Test Item Value Reference Range Interpretation Comments Albumin Lvl (test code = Albumin Lvl) 3.6 3.5-5.0 [facility]annJEFF[place] [id number] 06:26:00 Test Item Value Reference Range Interpretation Comments ALT (test code = ALT) 19 See_Comment [Auto mated message] The system which ge nerated this result transmit shaun reference range : <=65. The reference range was not used to interpr et this result as jackeline l/abnormal. [facility] [id number] 06:26:00 Test Item Value Reference Range Interpretation Comments AST (test code = AST) 19 See_Comment [Auto mated message] The system which ge nerated this result transmit shaun reference range : <=37. The reference range was not used to interpr et this result as jackeline l/abnormal. [facility] [id number] 06:26:00 Test Item Value Reference Range Interpretation Comments Alk Phos (test code = Alk Phos) 92 39-136 [place] 626922-08-28 06:26:00 Test Item Value Reference Range Interpretation Comments Bili Total (test code = Bili Total) 0.3 0.2-1.3 [place] 626922-08-28 06:26:00 Test Item Value Reference Range Interpretation Comments AGAP (test code = AGAP) 8.1 10.0-20.0 [facility] [id number] 06:26:00 Test Item Value Reference Range Interpretation Comments B/C Ratio (test code = B/C Ratio) 18 1 6-25 [place] [address]-08-28 06:26:00 Test Item Value Reference Range Interpretation Comments Globulin (test code = Globulin) 3.8 2.7-4.2 [facility] [id number] 06:26:00 Test Item Value Reference Range Interpretation Comments A/G Ratio (test code = A/G Ratio) 0.9 1 0.7-1.6 [facility] [id number] 06:26:00 Test Item Value Reference Range Interpretation Comments eGFR (test code = eGFR) 95 [place] 107532-08-28 06:26:00 Test Item Value Reference Range Interpretation Comments WBC (test code = WBC) 7.6 3.7-10.4 [place] 107532-08-28 06:26:00 Test Item Value Reference Range Interpretation Comments RBC (test code = RBC) 4.38 4.20-5.40 [facility] PasoYbyqtcpGKDJDIVHIS1310-07-03 06:26:00 Test Item Value Reference Range Interpretation Comments Hgb (test code = Hgb) 13.1 12.0-16.0 [facility] PasoIfqbeyjXJDOWCMNQV3884-04-36 06:26:00 Test Item Value Reference Range Interpretation Comments Hct (test code = Hct) 39.4 36.0-48.0 [facility] [id number] 06:26:00 Test Item Value Reference Range Interpretation Comments MCV (test code = MCV) 90.0 80.0-98.0 [facility] PasoLmauoqfLRFQHCJNBE1483-61-04 06:26:00 Test Item Value Reference Range Interpretation Comments MCH (test code = MCH) 29.9 pg 27.0-31.0 [facility] PasoRlxsnhbRFHFUKXAZF3233-42-21 06:26:00 Test Item Value Reference Range Interpretation Comments MCHC (test code = MCHC) 33.2 32.0-36.0 [facility] PasoYkdsytuREUSDMKEHW0901-61-33 06:26:00 Test Item Value Reference Range Interpretation Comments RDW (test code = RDW) 13.2 11.5-14.5 [facility] [id number] 06:26:00 Test Item Value Reference Range Interpretation Comments Platelet (test code = Platelet) 176 133-450 [facility] PasoHtnxdypPYDAGFGTPG7381-69-04 06:26:00 Test Item Value Reference Range Interpretation Comments MPV (test code = MPV) 10.0 7.4-10.4 [facility] PasoEjtzbckESZAVNVDOM6214-23-58 06:26:00 Test Item Value Reference Range Interpretation Comments Segs (test code = Segs) 58.0 45.0-75.0 [facility] PasoAbpayybNGGLDJQCAV1244-57-43 06:26:00 Test Item Value Reference Range Interpretation Comments Lymphocytes (test code = Lymphocytes) 30.2 20.0-40.0 [facility] PasoErlwcinYSEMZEZUJN4652-63-04 06:26:00 Test Item Value Reference Range Interpretation Comments Monocytes (test code = Monocytes) 7.8 2.0-12.0 [facility] PasoByptwbeWJCMVFGVXC7853-21-03 06:26:00 Test Item Value Reference Range Interpretation Comments Eosinophils (test code = 3.7 See_Comment [A utomated message] The Eosinophils) system which ge nerated this result tra nsmitted reference range : <=4.0. The reference r lily was not used to int erpret this result as normal/abnormal . [id number] 06:26:00 Test Item Value Reference Range Interpretation Comments Basophils (test code = 0.3 See_Comment [Aut omated message] The Basophils) system which ge nerated this result tra nsmitted reference range : <=1.0. The reference r lily was not used to int erpret this result as normal/abnormal . [facility]awUigavkxCPAJCTAHMI0126-82-34 06:26:00 Test Item Value Reference Range Interpretation Comments Neutrophils # (test code = Neutrophils 4.4 1.5-8.1 #) [facility]awUkjbkxfJOCGTPJVCH1591-60-59 06:26:00 Test Item Value Reference Range Interpretation Comments Lymphocytes # (test code = Lymphocytes 2.3 1.0-5.5 #) [facility] PasoLuwkkdnVDPDSPAAUT4292-08-97 06:26:00 Test Item Value Reference Range Interpretation Comments Monocytes # (test code 0.6 See_Comment [Aut omated message] The = Monocytes #) system which generated this result tra nsmitted reference range : <=0.8. The reference r lily was not used to int erpret this result as normal/abnormal . [facility] PasoSrrckagIWFHLZUVAO8850-49-25 06:26:00 Test Item Value Reference Range Interpretation Comments Eosinophils # (test code 0.3 See_Comment [A utomated message] The = Eosinophils #) system whic h generated this result tra nsmitted reference range : <=0.5. The reference r lily was not used to int erpret this result as normal/abnormal . [facility]CARD[facility] [id number] 06:26:00 Test Item Value Reference Range Interpretation Comments HS Troponin I Baseline (test code = HS 46 Troponin I Baseline) [facility] [id number] 06:26:00 Test Item Value Reference Range Interpretation Comments Glucose Lvl (test code = Glucose Lvl) 122 70-99 [facility] [id number] 06:26:00 Test Item Value Reference Range Interpretation Comments BUN (test code = BUN) 12 7-22 [facility] [id number] 06:26:00 Test Item Value Reference Range Interpretation Comments Creatinine Lvl (test code = Creatinine 0.66 0.50-1.40 Lvl) [place] 626922-08-28 06:26:00 Test Item Value Reference Range Interpretation Comments Sodium Lvl (test code = Sodium Lvl) 140 135-145 [place] 626922-08-28 06:26:00 Test Item Value Reference Range Interpretation Comments Potassium Lvl (test code = Potassium 4.1 3.5-5.1 Lvl) [place] 626922-08-28 06:26:00 Test Item Value Reference Range Interpretation Comments Chloride Lvl (test code = Chloride Lvl) 109 95-109 [place] 626922-08-28 06:26:00 Test Item Value Reference Range Interpretation Comments CO2 (test code = CO2) 27 24-32 [place] 626922-08-28 06:26:00 Test Item Value Reference Range Interpretation Comments Calcium Lvl (test code = Calcium Lvl) 9.3 8.5-10.5 [place] 626922-08-28 06:26:00 Test Item Value Reference Range Interpretation Comments Total Protein (test code = Total 7.4 6.4-8.4 Protein) [place] 626922-08-28 06:26:00 Test Item Value Reference Range Interpretation Comments Albumin Lvl (test code = Albumin Lvl) 3.6 3.5-5.0 [place] 626922-08-28 06:26:00 Test Item Value Reference Range Interpretation Comments ALT (test code = ALT) 19 See_Comment [Auto mated message] The system which nerated this result transmit shaun reference range : <=65. The reference range was not used to interpr et this result as jackeline l/abnormal. [place] 626922-08-28 06:26:00 Test Item Value Reference Range Interpretation Comments AST (test code = AST) 19 See_Comment [Auto mated message] The system which [employer] nerated this result transmit shaun reference range : <=37. The reference range was not used to interpr et this result as jackeline l/abnormal. [place] 626922-08-28 06:26:00 Test Item Value Reference Range Interpretation Comments Alk Phos (test code = Alk Phos) 92 39-136 [place] 626922-08-28 06:26:00 Test Item Value Reference Range Interpretation Comments Bili Total (test code = Bili Total) 0.3 0.2-1.3 [place] [address]-08-28 06:26:00 Test Item Value Reference Range Interpretation Comments AGAP (test code = AGAP) 8.1 10.0-20.0 [place] 626922-08-28 06:26:00 Test Item Value Reference Range Interpretation Comments B/C Ratio (test code = B/C Ratio) 18 1 6-25 [place] [address]-08-28 06:26:00 Test Item Value Reference Range Interpretation Comments Globulin (test code = Globulin) 3.8 2.7-4.2 [place] 626922-08-28 06:26:00 Test Item Value Reference Range Interpretation Comments A/G Ratio (test code = A/G Ratio) 0.9 1 0.7-1.6 [place] [address]-08-28 06:26:00 Test Item Value Reference Range Interpretation Comments eGFR (test code = eGFR) 95 [place] 107532-08-28 06:26:00 Test Item Value Reference Range Interpretation Comments WBC (test code = WBC) 7.6 3.7-10.4 [place] [address]-08-28 06:26:00 Test Item Value Reference Range Interpretation Comments RBC (test code = RBC) 4.38 4.20-5.40 [place] 107532-08-28 06:26:00 Test Item Value Reference Range Interpretation Comments Hgb (test code = Hgb) 13.1 12.0-16.0 [place] 107532-08-28 06:26:00 Test Item Value Reference Range Interpretation Comments Hct (test code = Hct) 39.4 36.0-48.0 [place] [address]-08-28 06:26:00 Test Item Value Reference Range Interpretation Comments MCV (test code = MCV) 90.0 80.0-98.0 [place] [address]-08-28 06:26:00 Test Item Value Reference Range Interpretation Comments MCH (test code = MCH) 29.9 pg 27.0-31.0 [place] [address]-08-28 06:26:00 Test Item Value Reference Range Interpretation Comments MCHC (test code = MCHC) 33.2 32.0-36.0 [place] 107532-08-28 06:26:00 Test Item Value Reference Range Interpretation Comments RDW (test code = RDW) 13.2 11.5-14.5 [place] 107532-08-28 06:26:00 Test Item Value Reference Range Interpretation Comments Platelet (test code = Platelet) 176 133-450 [facility] PasoThahfhrDXBUXRPXLP9392-51-19 06:26:00 Test Item Value Reference Range Interpretation Comments MPV (test code = MPV) 10.0 7.4-10.4 [place] 107532-08-28 06:26:00 Test Item Value Reference Range Interpretation Comments Segs (test code = Segs) 58.0 45.0-75.0 [place] 107532-08-28 06:26:00 Test Item Value Reference Range Interpretation Comments Lymphocytes (test code = Lymphocytes) 30.2 20.0-40.0 [place] 107532-08-28 06:26:00 Test Item Value Reference Range Interpretation Comments Monocytes (test code = Monocytes) 7.8 2.0-12.0 [facility]FhtodvdOFNPBPSFNR8095-43-66 06:26:00 Test Item Value Reference Range Interpretation Comments Eosinophils (test code = 3.7 See_Comment [A utomated message] The Eosinophils) system which ge nerated this result tra nsmitted reference range : <=4.0. The reference r lily was not used to int erpret this result as normal/abnormal . [facility] PasoDprghciWJSUEDOGZQ2454-67-94 06:26:00 Test Item Value Reference Range Interpretation Comments Basophils (test code = 0.3 See_Comment [Aut omated message] The Basophils) system which ge nerated this result tra nsmitted reference range : <=1.0. The reference r lily was not used to int erpret this result as normal/abnormal . [place] 107532-08-28 06:26:00 Test Item Value Reference Range Interpretation Comments Neutrophils # (test code = Neutrophils 4.4 1.5-8.1 #) [place] 107532-08-28 06:26:00 Test Item Value Reference Range Interpretation Comments Lymphocytes # (test code = Lymphocytes 2.3 1.0-5.5 #) [facility]AG9945[facility] 06:26:00 Test Item Value Reference Range Interpretation Comments Monocytes # (test code 0.6 See_Comment [Aut omated message] The = Monocytes #) system which generated this result tra nsmitted reference range : <=0.8. The reference r lily was not used to int erpret this result as normal/abnormal . [facility]CtxfzvoVFAHWRPBMK0275-23-69 06:26:00 Test Item Value Reference Range Interpretation Comments Eosinophils # (test code 0.3 See_Comment [A utomated message] The = Eosinophils #) system whic h generated this result tra nsmitted reference range : <=0.5. The reference r lily was not used to int erpret this result as normal/abnormal . [facility]CARD[facility] [id number] 06:26:00 Test Item Value Reference Range Interpretation Comments HS Troponin I Baseline (test code = HS 46 Troponin I Baseline) [facility] [id number] 06:26:00 Test Item Value Reference Range Interpretation Comments Glucose Lvl (test code = Glucose Lvl) 122 70-99 [facility] [id number] 06:26:00 Test Item Value Reference Range Interpretation Comments BUN (test code = BUN) 12 7-22 [facility] [id number] 06:26:00 Test Item Value Reference Range Interpretation Comments Creatinine Lvl (test code = Creatinine 0.66 0.50-1.40 Lvl) [facility] [id number] 06:26:00 Test Item Value Reference Range Interpretation Comments Sodium Lvl (test code = Sodium Lvl) 140 135-145 [facility] [id number] 06:26:00 Test Item Value Reference Range Interpretation Comments Potassium Lvl (test code = Potassium 4.1 3.5-5.1 Lvl) [facility] [id number] 06:26:00 Test Item Value Reference Range Interpretation Comments Chloride Lvl (test code = Chloride Lvl) 109 95-109 [facility] [id number] 06:26:00 Test Item Value Reference Range Interpretation Comments CO2 (test code = CO2) 27 24-32 [facility] [id number] 06:26:00 Test Item Value Reference Range Interpretation Comments Calcium Lvl (test code = Calcium Lvl) 9.3 8.5-10.5 [place] 626922-08-28 06:26:00 Test Item Value Reference Range Interpretation Comments Total Protein (test code = Total 7.4 6.4-8.4 Protein) [place] 626922-08-28 06:26:00 Test Item Value Reference Range Interpretation Comments Albumin Lvl (test code = Albumin Lvl) 3.6 3.5-5.0 [place] 626922-08-28 06:26:00 Test Item Value Reference Range Interpretation Comments ALT (test code = ALT) 19 See_Comment [Auto mated message] The system which ge nerated this result transmit shaun reference range : <=65. The reference range was not used to interpr et this result as jackeline l/abnormal. [place] 626922-08-28 06:26:00 Test Item Value Reference Range Interpretation Comments AST (test code = AST) 19 See_Comment [Auto mated message] The system which ge nerated this result transmit shaun reference range : <=37. The reference range was not used to interpr et this result as jackeline l/abnormal. [place] 626922-08-28 06:26:00 Test Item Value Reference Range Interpretation Comments Alk Phos (test code = Alk Phos) 92 39-136 [place] 626922-08-28 06:26:00 Test Item Value Reference Range Interpretation Comments Bili Total (test code = Bili Total) 0.3 0.2-1.3 [place] 626922-08-28 06:26:00 Test Item Value Reference Range Interpretation Comments AGAP (test code = AGAP) 8.1 10.0-20.0 [facility] [id number] 06:26:00 Test Item Value Reference Range Interpretation Comments B/C Ratio (test code = B/C Ratio) 18 1 6-25 [place] 626922-08-28 06:26:00 Test Item Value Reference Range Interpretation Comments Globulin (test code = Globulin) 3.8 2.7-4.2 [facility] [id number] 06:26:00 Test Item Value Reference Range Interpretation Comments A/G Ratio (test code = A/G Ratio) 0.9 1 0.7-1.6 [facility]2022-08-28 06:26:00 Test Item Value Reference Range Interpretation Comments eGFR (test code = eGFR) 95 [facility] PasoXydfxdmODDQZILBGT9795-61-00 06:26:00 Test Item Value Reference Range Interpretation Comments WBC (test code = WBC) 7.6 3.7-10.4 [facility] PasoFlvjjouVKHKEMSXJN2883-09-17 06:26:00 Test Item Value Reference Range Interpretation Comments RBC (test code = RBC) 4.38 4.20-5.40 [place] 107532-08-28 06:26:00 Test Item Value Reference Range Interpretation Comments Hgb (test code = Hgb) 13.1 12.0-16.0 [facility] PasoHoezyknHPZBJXZCXH8860-40-50 06:26:00 Test Item Value Reference Range Interpretation Comments Hct (test code = Hct) 39.4 36.0-48.0 [place] 107532-08-28 06:26:00 Test Item Value Reference Range Interpretation Comments MCV (test code = MCV) 90.0 80.0-98.0 [facility] PasoPdwbnkcYGPBSMTTDB4013-35-69 06:26:00 Test Item Value Reference Range Interpretation Comments MCH (test code = MCH) 29.9 pg 27.0-31.0 [facility] PasoKndaanfHVGLGWDJSL7319-57-70 06:26:00 Test Item Value Reference Range Interpretation Comments MCHC (test code = MCHC) 33.2 32.0-36.0 [facility] PasoKqfxyfwLQTXSJVHLF6170-98-07 06:26:00 Test Item Value Reference Range Interpretation Comments RDW (test code = RDW) 13.2 11.5-14.5 [place] 107532-08-28 06:26:00 Test Item Value Reference Range Interpretation Comments Platelet (test code = Platelet) 176 133-450 [facility] PasoCcmmmcpBXKBDXVHLI6473-33-11 06:26:00 Test Item Value Reference Range Interpretation Comments MPV (test code = MPV) 10.0 7.4-10.4 [facility] PasoGzwcdolEWOMQVWARE4913-71-54 06:26:00 Test Item Value Reference Range Interpretation Comments Segs (test code = Segs) 58.0 45.0-75.0 [facility] PasoBhyacxfYJGEZDABIX2726-58-55 06:26:00 Test Item Value Reference Range Interpretation Comments Lymphocytes (test code = Lymphocytes) 30.2 20.0-40.0 [facility] PasoLzxxaxmKXXRUVNVJF7308-19-03 06:26:00 Test Item Value Reference Range Interpretation Comments Monocytes (test code = Monocytes) 7.8 2.0-12.0 [facility] PasoTqbdnbzIKLNRMOOIE1106-59-20 06:26:00 Test Item Value Reference Range Interpretation Comments Eosinophils (test code = 3.7 See_Comment [A utomated message] The Eosinophils) system which ge nerated this result tra nsmitted reference range : <=4.0. The reference r lily was not used to int erpret this result as normal/abnormal . [facility] PasoWvdoyvoAJICWEQBKE7598-47-70 06:26:00 Test Item Value Reference Range Interpretation Comments Basophils (test code = 0.3 See_Comment [Aut omated message] The Basophils) system which ge nerated this result tra nsmitted reference range : <=1.0. The reference r lily was not used to int erpret this result as normal/abnormal . [facility] PasoYhjnhpqWYUQTKZUFH3868-37-97 06:26:00 Test Item Value Reference Range Interpretation Comments Neutrophils # (test code = Neutrophils 4.4 1.5-8.1 #) [facility] PasoWkfkqoqYONGGHIEFK4255-31-44 06:26:00 Test Item Value Reference Range Interpretation Comments Lymphocytes # (test code = Lymphocytes 2.3 1.0-5.5 #) [facility] PasoZkzeyyuDUJIRUJSZT9419-24-05 06:26:00 Test Item Value Reference Range Interpretation Comments Monocytes # (test code 0.6 See_Comment [Aut omated message] The = Monocytes #) system which generated this result tra nsmitted reference range : <=0.8. The reference r lily was not used to int erpret this result as normal/abnormal . [facility] PasoQomfkrtPZMKFIYPYZ0895-71-40 06:26:00 Test Item Value Reference Range Interpretation Comments Eosinophils # (test code 0.3 See_Comment [A utomated message] The = Eosinophils #) system whic h generated this result tra nsmitted reference range : <=0.5. The reference r lily was not used to int erpret this result as normal/abnormal . [facility]2022-08-28 06:26:00 Test Item Value Reference Range Interpretation Comments HS Troponin I Baseline (test code = HS 46 Troponin I Baseline) [facility] [id number] 06:26:00 Test Item Value Reference Range Interpretation Comments Glucose Lvl (test code = Glucose Lvl) 122 70-99 [facility] [id number] 06:26:00 Test Item Value Reference Range Interpretation Comments BUN (test code = BUN) 10-18 [facility] [id number] 06:26:00 Test Item Value Reference Range Interpretation Comments Creatinine Lvl (test code = Creatinine 0.66 0.50-1.40 Lvl) [facility]TabSquareN[id number] 06:26:00 Test Item Value Reference Range Interpretation Comments Sodium Lvl (test code = Sodium Lvl) 140 135-145 [facility] [id number] 06:26:00 Test Item Value Reference Range Interpretation Comments Potassium Lvl (test code = Potassium 4.1 3.5-5.1 Lvl) [facility] [id number] 06:26:00 Test Item Value Reference Range Interpretation Comments Chloride Lvl (test code = Chloride Lvl) 109 95-109 [facility] [id number] 06:26:00 Test Item Value Reference Range Interpretation Comments CO2 (test code = CO2) [facility] [id number] 06:26:00 Test Item Value Reference Range Interpretation Comments HS Troponin I Baseline (test code = HS 46 Troponin I Baseline) [facility] [id number] 06:26:00 Test Item Value Reference Range Interpretation Comments Glucose Lvl (test code = Glucose Lvl) 122 70-99 [facility] [id number] 06:26:00 Test Item Value Reference Range Interpretation Comments BUN (test code = BUN) 10-18 [facility] [id number] 06:26:00 Test Item Value Reference Range Interpretation Comments Creatinine Lvl (test code = Creatinine 0.66 0.50-1.40 Lvl) [facility]2022-08-28 06:26:00 Test Item Value Reference Range Interpretation Comments Sodium Lvl (test code = Sodium Lvl) 140 135-145 [facility] [id number] 06:26:00 Test Item Value Reference Range Interpretation Comments Potassium Lvl (test code = Potassium 4.1 3.5-5.1 Lvl) [place] 626922-08-28 06:26:00 Test Item Value Reference Range Interpretation Comments Chloride Lvl (test code = Chloride Lvl) 109 95-109 [place] 626922-08-28 06:26:00 Test Item Value Reference Range Interpretation Comments CO2 (test code = CO2) 27 24-32 [place] 626922-08-28 06:26:00 Test Item Value Reference Range Interpretation Comments Calcium Lvl (test code = Calcium Lvl) 9.3 8.5-10.5 [place] 626922-08-28 06:26:00 Test Item Value Reference Range Interpretation Comments Total Protein (test code = Total 7.4 6.4-8.4 Protein) [place] 626922-08-28 06:26:00 Test Item Value Reference Range Interpretation Comments Calcium Lvl (test code = Calcium Lvl) 9.3 8.5-10.5 [place] 626922-08-28 06:26:00 Test Item Value Reference Range Interpretation Comments Albumin Lvl (test code = Albumin Lvl) 3.6 3.5-5.0 [facility]2022-08-28 06:26:00 Test Item Value Reference Range Interpretation Comments ALT (test code = ALT) 19 See_Comment [Auto mated message] The system which ge nerated this result transmit shaun reference range : <=65. The reference range was not used to interpr et this result as jackeline l/abnormal. [place] 626922-08-28 06:26:00 Test Item Value Reference Range Interpretation Comments AST (test code = AST) 19 See_Comment [Auto mated message] The system which ge nerated this result transmit shaun reference range : <=37. The reference range was not used to interpr et this result as jackeline l/abnormal. [place] 626922-08-28 06:26:00 Test Item Value Reference Range Interpretation Comments Alk Phos (test code = Alk Phos) 92 39-136 [place] 626922-08-28 06:26:00 Test Item Value Reference Range Interpretation Comments Bili Total (test code = Bili Total) 0.3 0.2-1.3 [place] 626922-08-28 06:26:00 Test Item Value Reference Range Interpretation Comments AGAP (test code = AGAP) 8.1 10.0-20.0 [place] 626922-08-28 06:26:00 Test Item Value Reference Range Interpretation Comments B/C Ratio (test code = B/C Ratio) 18 1 6-25 [place] 626922-08-28 06:26:00 Test Item Value Reference Range Interpretation Comments Globulin (test code = Globulin) 3.8 2.7-4.2 [place] 626922-08-28 06:26:00 Test Item Value Reference Range Interpretation Comments A/G Ratio (test code = A/G Ratio) 0.9 1 0.7-1.6 [place] 626922-08-28 06:26:00 Test Item Value Reference Range Interpretation Comments eGFR (test code = eGFR) 95 [place] 626922-08-28 06:26:00 Test Item Value Reference Range Interpretation Comments Total Protein (test code = Total 7.4 6.4-8.4 Protein) [place] 107532-08-28 06:26:00 Test Item Value Reference Range Interpretation Comments WBC (test code = WBC) 7.6 3.7-10.4 [place] 107532-08-28 06:26:00 Test Item Value Reference Range Interpretation Comments RBC (test code = RBC) 4.38 4.20-5.40 [place] 107532-08-28 06:26:00 Test Item Value Reference Range Interpretation Comments Hgb (test code = Hgb) 13.1 12.0-16.0 [place] 62524-08-28 06:26:00 Test Item Value Reference Range Interpretation Comments Hct (test code = Hct) 39.4 36.0-48.0 [place] 107532-08-28 06:26:00 Test Item Value Reference Range Interpretation Comments MCV (test code = MCV) 90.0 80.0-98.0 [place] 107532-08-28 06:26:00 Test Item Value Reference Range Interpretation Comments MCH (test code = MCH) 29.9 pg 27.0-31.0 [place] 107532-08-28 06:26:00 Test Item Value Reference Range Interpretation Comments MCHC (test code = MCHC) 33.2 32.0-36.0 [facility] PasoUarplyvKRGFASPXBT6186-34-26 06:26:00 Test Item Value Reference Range Interpretation Comments RDW (test code = RDW) 13.2 11.5-14.5 [facility] PasoMdwcyhuZOYKCUUFLH7244-91-72 06:26:00 Test Item Value Reference Range Interpretation Comments Platelet (test code = Platelet) 176 133-450 [facility] PasoVvdjpxwQXSXWMAIIS3461-03-06 06:26:00 Test Item Value Reference Range Interpretation Comments MPV (test code = MPV) 10.0 7.4-10.4 [facility]2022-08-28 06:26:00 Test Item Value Reference Range Interpretation Comments Albumin Lvl (test code = Albumin Lvl) 3.6 3.5-5.0 [facility] PasoYgqftxyPIFPRRGEKD0590-50-79 06:26:00 Test Item Value Reference Range Interpretation Comments Segs (test code = Segs) 58.0 45.0-75.0 [facility] PasoJdayodjSKXQTWXOSB0182-96-39 06:26:00 Test Item Value Reference Range Interpretation Comments Lymphocytes (test code = Lymphocytes) 30.2 20.0-40.0 [facility] PasoKxeqtwoRVAKZYUWVM0223-74-92 06:26:00 Test Item Value Reference Range Interpretation Comments Monocytes (test code = Monocytes) 7.8 2.0-12.0 [facility] PasoLnogpkqMEBSCLMFVY1019-43-12 06:26:00 Test Item Value Reference Range Interpretation Comments Eosinophils (test code = 3.7 See_Comment [A utomated message] The Eosinophils) system which ge nerated this result tra nsmitted reference range : <=4.0. The reference r lily was not used to int erpret this result as normal/abnormal . [place] 107532-08-28 06:26:00 Test Item Value Reference Range Interpretation Comments Basophils (test code = 0.3 See_Comment [Aut omated message] The Basophils) system which ge nerated this result tra nsmitted reference range : <=1.0. The reference r lily was not used to int erpret this result as normal/abnormal . [place] 107532-08-28 06:26:00 Test Item Value Reference Range Interpretation Comments Neutrophils # (test code = Neutrophils 4.4 1.5-8.1 #) [place] 107532-08-28 06:26:00 Test Item Value Reference Range Interpretation Comments Lymphocytes # (test code = Lymphocytes 2.3 1.0-5.5 #) [place] [address]24-08-28 06:26:00 Test Item Value Reference Range Interpretation Comments Monocytes # (test code 0.6 See_Comment [Aut omated message] The = Monocytes #) system which generated this result tra nsmitted reference range : <=0.8. The reference r lily was not used to int erpret this result as normal/abnormal . [place] 62524-08-28 06:26:00 Test Item Value Reference Range Interpretation Comments Eosinophils # (test code 0.3 See_Comment [A utomated message] The = Eosinophils #) system whic h generated this result tra nsmitted reference range : <=0.5. The reference r lily was not used to int erpret this result as normal/abnormal . [facility] [id number] 06:26:00 Test Item Value Reference Range Interpretation Comments ALT (test code = ALT) 19 See_Comment [Auto mated message] The system which ge nerated this result transmit shaun reference range : <=65. The reference range was not used to interpr et this result as jackeline l/abnormal. [facility] [id number] 06:26:00 Test Item Value Reference Range Interpretation Comments AST (test code = AST) 19 See_Comment [Auto mated message] The system which ge nerated this result transmit shaun reference range : <=37. The reference range was not used to interpr et this result as jackeline l/abnormal. [facility] [id number] 06:26:00 Test Item Value Reference Range Interpretation Comments Alk Phos (test code = Alk Phos) 92 39-136 [facility] [id number] 06:26:00 Test Item Value Reference Range Interpretation Comments Bili Total (test code = Bili Total) 0.3 0.2-1.3 [facility] [id number] 06:26:00 Test Item Value Reference Range Interpretation Comments AGAP (test code = AGAP) 8.1 10.0-20.0 [place] 626922-08-28 06:26:00 Test Item Value Reference Range Interpretation Comments B/C Ratio (test code = B/C Ratio) 18 1 6-25 [place] 626922-08-28 06:26:00 Test Item Value Reference Range Interpretation Comments Globulin (test code = Globulin) 3.8 2.7-4.2 [place] 626922-08-28 06:26:00 Test Item Value Reference Range Interpretation Comments A/G Ratio (test code = A/G Ratio) 0.9 1 0.7-1.6 [place] 626922-08-28 06:26:00 Test Item Value Reference Range Interpretation Comments eGFR (test code = eGFR) 95 [place] 107532-08-28 06:26:00 Test Item Value Reference Range Interpretation Comments WBC (test code = WBC) 7.6 3.7-10.4 [place] 107532-08-28 06:26:00 Test Item Value Reference Range Interpretation Comments RBC (test code = RBC) 4.38 4.20-5.40 [place] 107532-08-28 06:26:00 Test Item Value Reference Range Interpretation Comments Hgb (test code = Hgb) 13.1 12.0-16.0 [facility] PasoJxhwxagWHBEOFQVCG4106-42-90 06:26:00 Test Item Value Reference Range Interpretation Comments Hct (test code = Hct) 39.4 36.0-48.0 [place] 107532-08-28 06:26:00 Test Item Value Reference Range Interpretation Comments MCV (test code = MCV) 90.0 80.0-98.0 [place] 107532-08-28 06:26:00 Test Item Value Reference Range Interpretation Comments MCH (test code = MCH) 29.9 pg 27.0-31.0 [place] 107532-08-28 06:26:00 Test Item Value Reference Range Interpretation Comments MCHC (test code = MCHC) 33.2 32.0-36.0 [place] 107532-08-28 06:26:00 Test Item Value Reference Range Interpretation Comments RDW (test code = RDW) 13.2 11.5-14.5 [place] 107532-08-28 06:26:00 Test Item Value Reference Range Interpretation Comments Platelet (test code = Platelet) 176 133-450 [facility]MlhstbaXWMXFWOQXD7316-56-80 06:26:00 Test Item Value Reference Range Interpretation Comments MPV (test code = MPV) 10.0 7.4-10.4 [facility]RsjxggtEHGMXIEYDQ7587-20-01 06:26:00 Test Item Value Reference Range Interpretation Comments Segs (test code = Segs) 58.0 45.0-75.0 [facility]awAllmnyrHFJWXMFHPY1038-40-44 06:26:00 Test Item Value Reference Range Interpretation Comments Lymphocytes (test code = Lymphocytes) 30.2 20.0-40.0 [facility]awKdxzvrlBTVUKMPLBB4213-71-70 06:26:00 Test Item Value Reference Range Interpretation Comments Monocytes (test code = Monocytes) 7.8 2.0-12.0 [facility] PasoAbpknsdKTVYBACEZK3437-99-32 06:26:00 Test Item Value Reference Range Interpretation Comments Eosinophils (test code = 3.7 See_Comment [A utomated message] The Eosinophils) system which ge nerated this result tra nsmitted reference range : <=4.0. The reference r lily was not used to int erpret this result as normal/abnormal . [facility]awGpcswqjPRWBUWTQEX6146-14-10 06:26:00 Test Item Value Reference Range Interpretation Comments Basophils (test code = 0.3 See_Comment [Aut omated message] The Basophils) system which ge nerated this result tra nsmitted reference range : <=1.0. The reference r lily was not used to int erpret this result as normal/abnormal . [facility]awBwlwerlXPJDFJEWMJ7097-64-10 06:26:00 Test Item Value Reference Range Interpretation Comments Neutrophils # (test code = Neutrophils 4.4 1.5-8.1 #) [facility]awXguqqxoCZEJOQFSYB9281-71-14 06:26:00 Test Item Value Reference Range Interpretation Comments Lymphocytes # (test code = Lymphocytes 2.3 1.0-5.5 #) [facility] [id number] 06:26:00 Test Item Value Reference Range Interpretation Comments HS Troponin I Baseline (test code = HS 46 Troponin I Baseline) [facility] CampusCHEM [id number] 06:26:00 Test Item Value Reference Range Interpretation Comments Glucose Lvl (test code = Glucose Lvl) 122 70-99 [place] 626922-08-28 06:26:00 Test Item Value Reference Range Interpretation Comments BUN (test code = BUN) 12 7-22 [place] 626922-08-28 06:26:00 Test Item Value Reference Range Interpretation Comments Creatinine Lvl (test code = Creatinine 0.66 0.50-1.40 Lvl) [place] 626922-08-28 06:26:00 Test Item Value Reference Range Interpretation Comments Sodium Lvl (test code = Sodium Lvl) 140 135-145 [place] 626922-08-28 06:26:00 Test Item Value Reference Range Interpretation Comments Potassium Lvl (test code = Potassium 4.1 3.5-5.1 Lvl) [place] 626922-08-28 06:26:00 Test Item Value Reference Range Interpretation Comments Chloride Lvl (test code = Chloride Lvl) 109 95-109 [facility] PasoDliuiypBXIJPRXHUR2571-79-05 06:26:00 Test Item Value Reference Range Interpretation Comments Monocytes # (test code 0.6 See_Comment [Aut omated message] The = Monocytes #) system which generated this result tra nsmitted reference range : <=0.8. The reference r lily was not used to int erpret this result as normal/abnormal . [place] 626922-08-28 06:26:00 Test Item Value Reference Range Interpretation Comments CO2 (test code = CO2) 27 24-32 [place] 626922-08-28 06:26:00 Test Item Value Reference Range Interpretation Comments Calcium Lvl (test code = Calcium Lvl) 9.3 8.5-10.5 [place] 626922-08-28 06:26:00 Test Item Value Reference Range Interpretation Comments Total Protein (test code = Total 7.4 6.4-8.4 Protein) [place] 626922-08-28 06:26:00 Test Item Value Reference Range Interpretation Comments Albumin Lvl (test code = Albumin Lvl) 3.6 3.5-5.0 [place] 626922-08-28 06:26:00 Test Item Value Reference Range Interpretation Comments ALT (test code = ALT) 19 See_Comment [Auto mated message] The system which ge nerated this result transmit shaun reference range : <=65. The reference range was not used to interpr et this result as jackeline l/abnormal. [facility] fav.or.it [id number] 06:26:00 Test Item Value Reference Range Interpretation Comments AST (test code = AST) 19 See_Comment [Auto mated message] The system which ge nerated this result transmit shaun reference range : <=37. The reference range was not used to interpr et this result as jackeline l/abnormal. [facility] fav.or.it [id number] 06:26:00 Test Item Value Reference Range Interpretation Comments Alk Phos (test code = Alk Phos) 92 39-136 [facility] [id number] 06:26:00 Test Item Value Reference Range Interpretation Comments Bili Total (test code = Bili Total) 0.3 0.2-1.3 [facility] [id number] 06:26:00 Test Item Value Reference Range Interpretation Comments AGAP (test code = AGAP) 8.1 10.0-20.0 [facility] [id number] 06:26:00 Test Item Value Reference Range Interpretation Comments B/C Ratio (test code = B/C Ratio) 18 1 6-25 [facility]ownUrizijjAVDDZCAYFL5006-73-31 06:26:00 Test Item Value Reference Range Interpretation Comments Eosinophils # (test code 0.3 See_Comment [A utomated message] The = Eosinophils #) system whic h generated this result tra nsmitted reference range : <=0.5. The reference r lily was not used to int erpret this result as normal/abnormal . [facility] fav.or.it [id number] 06:26:00 Test Item Value Reference Range Interpretation Comments Globulin (test code = Globulin) 3.8 2.7-4.2 [facility] [id number] 06:26:00 Test Item Value Reference Range Interpretation Comments A/G Ratio (test code = A/G Ratio) 0.9 1 0.7-1.6 [facility] [id number] 06:26:00 Test Item Value Reference Range Interpretation Comments eGFR (test code = eGFR) 95 [facility] CampusGejdfknIVWYZGVPGZ0150-40-38 06:26:00 Test Item Value Reference Range Interpretation Comments WBC (test code = WBC) 7.6 3.7-10.4 [facility]HjufswlLJAXOZCKWT4984-31-54 06:26:00 Test Item Value Reference Range Interpretation Comments RBC (test code = RBC) 4.38 4.20-5.40 [facility] PasoLdkibfiZUWRGENLUZ3848-39-57 06:26:00 Test Item Value Reference Range Interpretation Comments Hgb (test code = Hgb) 13.1 12.0-16.0 [facility] PasoChgijzgQSBOLRNVOE8110-65-32 06:26:00 Test Item Value Reference Range Interpretation Comments Hct (test code = Hct) 39.4 36.0-48.0 [facility] PasoRhyybfdFOFTRGPYNE1494-46-57 06:26:00 Test Item Value Reference Range Interpretation Comments MCV (test code = MCV) 90.0 80.0-98.0 [facility] PasoFsclesuWZXIYQZSFB7792-15-78 06:26:00 Test Item Value Reference Range Interpretation Comments MCH (test code = MCH) 29.9 pg 27.0-31.0 [facility] PasoEmdrvqfQVLMVUMPSA0454-55-57 06:26:00 Test Item Value Reference Range Interpretation Comments MCHC (test code = MCHC) 33.2 32.0-36.0 [facility] PasoAzyhidmGXOPCEWLIY7723-42-11 06:26:00 Test Item Value Reference Range Interpretation Comments RDW (test code = RDW) 13.2 11.5-14.5 [facility] PasoWjnnmtfKLMSARMPWK7436-43-70 06:26:00 Test Item Value Reference Range Interpretation Comments Platelet (test code = Platelet) 176 133-450 [facility] PasoYninufzZZREPTNZJS2186-72-11 06:26:00 Test Item Value Reference Range Interpretation Comments MPV (test code = MPV) 10.0 7.4-10.4 [facility] PasoYhpkwnaWOFFCRXJFF3237-30-11 06:26:00 Test Item Value Reference Range Interpretation Comments Segs (test code = Segs) 58.0 45.0-75.0 [facility] PasoAusqsrrTLXYGHHKDH4718-80-29 06:26:00 Test Item Value Reference Range Interpretation Comments Lymphocytes (test code = Lymphocytes) 30.2 20.0-40.0 [facility] PasoUeqfpltUYGYWMGDXU1648-38-46 06:26:00 Test Item Value Reference Range Interpretation Comments Monocytes (test code = Monocytes) 7.8 2.0-12.0 [place] [address]-08-28 06:26:00 Test Item Value Reference Range Interpretation Comments Eosinophils (test code = 3.7 See_Comment [A utomated message] The Eosinophils) system which ge nerated this result tra nsmitted reference range : <=4.0. The reference r lily was not used to int erpret this result as normal/abnormal . [facility] PasoWxorkeiPPXSWFVWCF8886-53-94 06:26:00 Test Item Value Reference Range Interpretation Comments Basophils (test code = 0.3 See_Comment [Aut omated message] The Basophils) system which ge nerated this result tra nsmitted reference range : <=1.0. The reference r lily was not used to int erpret this result as normal/abnormal . [facility] PasoMikycqoAFCJBMLMHS5959-77-78 06:26:00 Test Item Value Reference Range Interpretation Comments Neutrophils # (test code = Neutrophils 4.4 1.5-8.1 #) [facility] PasoQsavvdfCJJBGQELOQ4435-98-98 06:26:00 Test Item Value Reference Range Interpretation Comments Lymphocytes # (test code = Lymphocytes 2.3 1.0-5.5 #) [facility] PasoIavklltZASTTBCMPE8411-01-87 06:26:00 Test Item Value Reference Range Interpretation Comments Monocytes # (test code 0.6 See_Comment [Aut omated message] The = Monocytes #) system which generated this result tra nsmitted reference range : <=0.8. The reference r lily was not used to int erpret this result as normal/abnormal . [facility] PasoVjubwwgDFDVBGLKSE2291-01-64 06:26:00 Test Item Value Reference Range Interpretation Comments Eosinophils # (test code 0.3 See_Comment [A utomated message] The = Eosinophils #) system whic h generated this result tra nsmitted reference range : <=0.5. The reference r lily was not used to int erpret this result as normal/abnormal . [facility]CARD[facility] [id number] 06:26:00 Test Item Value Reference Range Interpretation Comments HS Troponin I Baseline (test code = HS 46 Troponin I Baseline) [facility] [id number] 06:26:00 Test Item Value Reference Range Interpretation Comments Glucose Lvl (test code = Glucose Lvl) 122 70-99 [facility] [id number] 06:26:00 Test Item Value Reference Range Interpretation Comments BUN (test code = BUN) 12 7-22 [place] 626922-08-28 06:26:00 Test Item Value Reference Range Interpretation Comments Creatinine Lvl (test code = Creatinine 0.66 0.50-1.40 Lvl) [place] 626922-08-28 06:26:00 Test Item Value Reference Range Interpretation Comments Sodium Lvl (test code = Sodium Lvl) 140 135-145 [place] 626922-08-28 06:26:00 Test Item Value Reference Range Interpretation Comments Potassium Lvl (test code = Potassium 4.1 3.5-5.1 Lvl) [place] 626922-08-28 06:26:00 Test Item Value Reference Range Interpretation Comments Chloride Lvl (test code = Chloride Lvl) 109 95-109 [place] 626922-08-28 06:26:00 Test Item Value Reference Range Interpretation Comments CO2 (test code = CO2) 27 24-32 [place] 626922-08-28 06:26:00 Test Item Value Reference Range Interpretation Comments Calcium Lvl (test code = Calcium Lvl) 9.3 8.5-10.5 [place] 626922-08-28 06:26:00 Test Item Value Reference Range Interpretation Comments Total Protein (test code = Total 7.4 6.4-8.4 Protein) [place] 626922-08-28 06:26:00 Test Item Value Reference Range Interpretation Comments Albumin Lvl (test code = Albumin Lvl) 3.6 3.5-5.0 [place] 626922-08-28 06:26:00 Test Item Value Reference Range Interpretation Comments ALT (test code = ALT) 19 See_Comment [Auto mated message] The system which ge nerated this result transmit shaun reference range : <=65. The reference range was not used to interpr et this result as jackeline l/abnormal. [place] 626922-08-28 06:26:00 Test Item Value Reference Range Interpretation Comments AST (test code = AST) 19 See_Comment [Auto mated message] The system which ge nerated this result transmit shaun reference range : <=37. The reference range was not used to interpr et this result as jackeline l/abnormal. [place] 626922-08-28 06:26:00 Test Item Value Reference Range Interpretation Comments Alk Phos (test code = Alk Phos) 92 39-136 [place] 626922-08-28 06:26:00 Test Item Value Reference Range Interpretation Comments Bili Total (test code = Bili Total) 0.3 0.2-1.3 [place] 626922-08-28 06:26:00 Test Item Value Reference Range Interpretation Comments AGAP (test code = AGAP) 8.1 10.0-20.0 [place] 626922-08-28 06:26:00 Test Item Value Reference Range Interpretation Comments B/C Ratio (test code = B/C Ratio) 18 1 6-25 [place] 626922-08-28 06:26:00 Test Item Value Reference Range Interpretation Comments Globulin (test code = Globulin) 3.8 2.7-4.2 [place] 626922-08-28 06:26:00 Test Item Value Reference Range Interpretation Comments A/G Ratio (test code = A/G Ratio) 0.9 1 0.7-1.6 [place] 626922-08-28 06:26:00 Test Item Value Reference Range Interpretation Comments eGFR (test code = eGFR) 95 [facility] PasoRvoppofXVNFSXDZRM6487-04-62 06:26:00 Test Item Value Reference Range Interpretation Comments WBC (test code = WBC) 7.6 3.7-10.4 [place] 107532-08-28 06:26:00 Test Item Value Reference Range Interpretation Comments RBC (test code = RBC) 4.38 4.20-5.40 [place] 107532-08-28 06:26:00 Test Item Value Reference Range Interpretation Comments Hgb (test code = Hgb) 13.1 12.0-16.0 [place] 107532-08-28 06:26:00 Test Item Value Reference Range Interpretation Comments Hct (test code = Hct) 39.4 36.0-48.0 [place] 107532-08-28 06:26:00 Test Item Value Reference Range Interpretation Comments MCV (test code = MCV) 90.0 80.0-98.0 [place] 107532-08-28 06:26:00 Test Item Value Reference Range Interpretation Comments MCH (test code = MCH) 29.9 pg 27.0-31.0 [facility] PasoIvqtnyaAUMXNOYSSL4487-13-93 06:26:00 Test Item Value Reference Range Interpretation Comments MCHC (test code = MCHC) 33.2 32.0-36.0 [place] 107532-08-28 06:26:00 Test Item Value Reference Range Interpretation Comments RDW (test code = RDW) 13.2 11.5-14.5 [facility] PasoKivvvdqRDDPDOAWRD7812-96-94 06:26:00 Test Item Value Reference Range Interpretation Comments Platelet (test code = Platelet) 176 133-450 [facility] PasoZptjjpuXVWUEOXIZU1176-10-12 06:26:00 Test Item Value Reference Range Interpretation Comments MPV (test code = MPV) 10.0 7.4-10.4 [place] 107532-08-28 06:26:00 Test Item Value Reference Range Interpretation Comments Segs (test code = Segs) 58.0 45.0-75.0 [facility] PasoGrhpejnAQXRNJAPSM5908-14-27 06:26:00 Test Item Value Reference Range Interpretation Comments Lymphocytes (test code = Lymphocytes) 30.2 20.0-40.0 [facility] PasoJdlzkwpWIHZMGVLGU2359-25-20 06:26:00 Test Item Value Reference Range Interpretation Comments Monocytes (test code = Monocytes) 7.8 2.0-12.0 [facility] PasoGdwaplgMSSWPXQIWG4944-50-28 06:26:00 Test Item Value Reference Range Interpretation Comments Eosinophils (test code = 3.7 See_Comment [A utomated message] The Eosinophils) system which ge nerated this result tra nsmitted reference range : <=4.0. The reference r lily was not used to int erpret this result as normal/abnormal . [facility] PasoOrpcebuJCWQIXGQVJ7152-29-07 06:26:00 Test Item Value Reference Range Interpretation Comments Basophils (test code = 0.3 See_Comment [Aut omated message] The Basophils) system which ge nerated this result tra nsmitted reference range : <=1.0. The reference r lily was not used to int erpret this result as normal/abnormal . [facility] PasoIrcoaquUPPXQRSSNG5119-21-31 06:26:00 Test Item Value Reference Range Interpretation Comments Neutrophils # (test code = Neutrophils 4.4 1.5-8.1 #) [facility] CampusMwjpzveWSZJYDNGKL5089-98-86 06:26:00 Test Item Value Reference Range Interpretation Comments Lymphocytes # (test code = Lymphocytes 2.3 1.0-5.5 #) [facility]zbDDWLDAOFWL0245[facility]-38 06:26:00 Test Item Value Reference Range Interpretation Comments Monocytes # (test code 0.6 See_Comment [Aut omated message] The = Monocytes #) system which generated this result tra nsmitted reference range : <=0.8. The reference r lily was not used to int erpret this result as normal/abnormal . [facility]YpexgviVDGCTGVXGU7261-67-23 06:26:00 Test Item Value Reference Range Interpretation Comments Eosinophils # (test code 0.3 See_Comment [A utomated message] The = Eosinophils #) system whic h generated this result tra nsmitted reference range : <=0.5. The reference r lily was not used to int erpret this result as normal/abnormal . [facility]CARD[facility] [id number] 06:26:00 Test Item Value Reference Range Interpretation Comments HS Troponin I Baseline (test code = HS 46 Troponin I Baseline) [facility] [id number] 06:26:00 Test Item Value Reference Range Interpretation Comments Glucose Lvl (test code = Glucose Lvl) 122 70-99 [facility] [id number] 06:26:00 Test Item Value Reference Range Interpretation Comments BUN (test code = BUN) 12 7-22 [facility]2022-08-28 06:26:00 Test Item Value Reference Range Interpretation Comments Creatinine Lvl (test code = Creatinine 0.66 0.50-1.40 Lvl) [facility] [id number] 06:26:00 Test Item Value Reference Range Interpretation Comments Sodium Lvl (test code = Sodium Lvl) 140 135-145 [facility] [id number] 06:26:00 Test Item Value Reference Range Interpretation Comments Potassium Lvl (test code = Potassium 4.1 3.5-5.1 Lvl) [facility]2022-08-28 06:26:00 Test Item Value Reference Range Interpretation Comments Chloride Lvl (test code = Chloride Lvl) 109 95-109 [facility] [place] 651162-08-28 06:26:00 Test Item Value Reference Range Interpretation Comments CO2 (test code = CO2) 27 24-32 [place] 626922-08-28 06:26:00 Test Item Value Reference Range Interpretation Comments Calcium Lvl (test code = Calcium Lvl) 9.3 8.5-10.5 [place] 626922-08-28 06:26:00 Test Item Value Reference Range Interpretation Comments Total Protein (test code = Total 7.4 6.4-8.4 Protein) [place] 626922-08-28 06:26:00 Test Item Value Reference Range Interpretation Comments Albumin Lvl (test code = Albumin Lvl) 3.6 3.5-5.0 [place] 626922-08-28 06:26:00 Test Item Value Reference Range Interpretation Comments ALT (test code = ALT) 19 See_Comment [Auto mated message] The system which ge nerated this result transmit shaun reference range : <=65. The reference range was not used to interpr et this result as jackeline l/abnormal. [place] 626922-08-28 06:26:00 Test Item Value Reference Range Interpretation Comments AST (test code = AST) 19 See_Comment [Auto mated message] The system which ge nerated this result transmit shaun reference range : <=37. The reference range was not used to interpr et this result as jackeline l/abnormal. [place] 626922-08-28 06:26:00 Test Item Value Reference Range Interpretation Comments Alk Phos (test code = Alk Phos) 92 39-136 [place] 626922-08-28 06:26:00 Test Item Value Reference Range Interpretation Comments Bili Total (test code = Bili Total) 0.3 0.2-1.3 [place] 277[address]-08-28 06:26:00 Test Item Value Reference Range Interpretation Comments AGAP (test code = AGAP) 8.1 10.0-20.0 [place] 626922-08-28 06:26:00 Test Item Value Reference Range Interpretation Comments B/C Ratio (test code = B/C Ratio) 18 1 6-25 [place] 626922-08-28 06:26:00 Test Item Value Reference Range Interpretation Comments Globulin (test code = Globulin) 3.8 2.7-4.2 [facility] [id number] 06:26:00 Test Item Value Reference Range Interpretation Comments A/G Ratio (test code = A/G Ratio) 0.9 1 0.7-1.6 [facility] [id number] 06:26:00 Test Item Value Reference Range Interpretation Comments eGFR (test code = eGFR) 95 [facility] PasoVlzbvzgUJMJURXNMK9274-09-27 06:26:00 Test Item Value Reference Range Interpretation Comments WBC (test code = WBC) 7.6 3.7-10.4 [facility] PasoUkuwasoSKPLHWLFGB5502-03-99 06:26:00 Test Item Value Reference Range Interpretation Comments RBC (test code = RBC) 4.38 4.20-5.40 [facility] PasoLaoiertFNSIDKRVCN8830-80-98 06:26:00 Test Item Value Reference Range Interpretation Comments Hgb (test code = Hgb) 13.1 12.0-16.0 [facility] PasoNhbyickTDINOBDOOK7387-10-75 06:26:00 Test Item Value Reference Range Interpretation Comments Hct (test code = Hct) 39.4 36.0-48.0 [facility] PasoHojoqtlHCMGOPJRZV7047-79-20 06:26:00 Test Item Value Reference Range Interpretation Comments MCV (test code = MCV) 90.0 80.0-98.0 [facility] PasoSnmlzjoIHRCXUQGVS2811-94-57 06:26:00 Test Item Value Reference Range Interpretation Comments MCH (test code = MCH) 29.9 pg 27.0-31.0 [facility] PasoIakcyfrXXTNXWWMWV6642-18-14 06:26:00 Test Item Value Reference Range Interpretation Comments MCHC (test code = MCHC) 33.2 32.0-36.0 [facility] PasoZkcpyyhMUWMUDPOYP4476-37-83 06:26:00 Test Item Value Reference Range Interpretation Comments RDW (test code = RDW) 13.2 11.5-14.5 [facility] PasoHshxdnpFWEKXFTJDY3076-80-74 06:26:00 Test Item Value Reference Range Interpretation Comments Platelet (test code = Platelet) 176 133-450 [facility] PasoHophfzoBCYJCHFBYP8374-11-79 06:26:00 Test Item Value Reference Range Interpretation Comments MPV (test code = MPV) 10.0 7.4-10.4 [facility] PasoRrxfcgiDWSBJIGPRS4978-29-22 06:26:00 Test Item Value Reference Range Interpretation Comments Segs (test code = Segs) 58.0 45.0-75.0 [place] 107532-08-28 06:26:00 Test Item Value Reference Range Interpretation Comments Lymphocytes (test code = Lymphocytes) 30.2 20.0-40.0 [place] 107532-08-28 06:26:00 Test Item Value Reference Range Interpretation Comments Monocytes (test code = Monocytes) 7.8 2.0-12.0 [place] 107532-08-28 06:26:00 Test Item Value Reference Range Interpretation Comments Eosinophils (test code = 3.7 See_Comment [A utomated message] The Eosinophils) system which ge nerated this result tra nsmitted reference range : <=4.0. The reference r lily was not used to int erpret this result as normal/abnormal . [place] [address]-08-28 06:26:00 Test Item Value Reference Range Interpretation Comments Basophils (test code = 0.3 See_Comment [Aut omated message] The Basophils) system which ge nerated this result tra nsmitted reference range : <=1.0. The reference r lily was not used to int erpret this result as normal/abnormal . [place] 107532-08-28 06:26:00 Test Item Value Reference Range Interpretation Comments Neutrophils # (test code = Neutrophils 4.4 1.5-8.1 #) [place] 107532-08-28 06:26:00 Test Item Value Reference Range Interpretation Comments Lymphocytes # (test code = Lymphocytes 2.3 1.0-5.5 #) [place] 107532-08-28 06:26:00 Test Item Value Reference Range Interpretation Comments Monocytes # (test code 0.6 See_Comment [Aut omated message] The = Monocytes #) system which generated this result tra nsmitted reference range : <=0.8. The reference r lily was not used to int erpret this result as normal/abnormal . [place] 107532-08-28 06:26:00 Test Item Value Reference Range Interpretation Comments Eosinophils # (test code 0.3 See_Comment [A utomated message] The = Eosinophils #) system whic h generated this result tra nsmitted reference range : <=0.5. The reference r lily was not used to int erpret this result as normal/abnormal . [facility] [id number] 06:26:00 Test Item Value Reference Range Interpretation Comments HS Troponin I Baseline (test code = HS 46 Troponin I Baseline) [facility] [id number] 06:26:00 Test Item Value Reference Range Interpretation Comments Glucose Lvl (test code = Glucose Lvl) 122 70-99 [facility] [id number] 06:26:00 Test Item Value Reference Range Interpretation Comments BUN (test code = BUN) 10-18 [facility] [id number] 06:26:00 Test Item Value Reference Range Interpretation Comments HS Troponin I Baseline (test code = HS 46 Troponin I Baseline) [facility] [id number] 06:26:00 Test Item Value Reference Range Interpretation Comments Glucose Lvl (test code = Glucose Lvl) 122 70-99 [facility] [id number] 06:26:00 Test Item Value Reference Range Interpretation Comments BUN (test code = BUN) 10-18 [facility] [id number] 06:26:00 Test Item Value Reference Range Interpretation Comments Creatinine Lvl (test code = Creatinine 0.66 0.50-1.40 Lvl) [facility] [id number] 06:26:00 Test Item Value Reference Range Interpretation Comments Sodium Lvl (test code = Sodium Lvl) 140 135-145 [facility] [id number] 06:26:00 Test Item Value Reference Range Interpretation Comments Potassium Lvl (test code = Potassium 4.1 3.5-5.1 Lvl) [facility] [id number] 06:26:00 Test Item Value Reference Range Interpretation Comments Chloride Lvl (test code = Chloride Lvl) 109 95-109 [facility] [id number] 06:26:00 Test Item Value Reference Range Interpretation Comments CO2 (test code = CO2) 32 [facility] [id number] 06:26:00 Test Item Value Reference Range Interpretation Comments Calcium Lvl (test code = Calcium Lvl) 9.3 8.5-10.5 [facility] [id number] 06:26:00 Test Item Value Reference Range Interpretation Comments Total Protein (test code = Total 7.4 6.4-8.4 Protein) [facility] [id number] 06:26:00 Test Item Value Reference Range Interpretation Comments Albumin Lvl (test code = Albumin Lvl) 3.6 3.5-5.0 [facility] [id number] 06:26:00 Test Item Value Reference Range Interpretation Comments ALT (test code = ALT) 19 See_Comment [Auto mated message] The system which ge nerated this result transmit shaun reference range : <=65. The reference range was not used to interpr et this result as jackeline l/abnormal. [facility] fav.or.it [id number] 06:26:00 Test Item Value Reference Range Interpretation Comments AST (test code = AST) 19 See_Comment [Auto mated message] The system which ge nerated this result transmit shaun reference range : <=37. The reference range was not used to interpr et this result as jackeline l/abnormal. [facility] fav.or.it [id number] 06:26:00 Test Item Value Reference Range Interpretation Comments Alk Phos (test code = Alk Phos) 92 39-136 [facility] fav.or.it [id number] 06:26:00 Test Item Value Reference Range Interpretation Comments Bili Total (test code = Bili Total) 0.3 0.2-1.3 [facility] fav.or.it [id number] 06:26:00 Test Item Value Reference Range Interpretation Comments AGAP (test code = AGAP) 8.1 10.0-20.0 [facility] fav[facility]or.it [id number] 06:26:00 Test Item Value Reference Range Interpretation Comments B/C Ratio (test code = B/C Ratio) 18 1 6-25 [facility] fav[facility]or.it [id number] 06:26:00 Test Item Value Reference Range Interpretation Comments Globulin (test code = Globulin) 3.8 2.7-4.2 [facility] fav.or.it [id number] 06:26:00 Test Item Value Reference Range Interpretation Comments A/G Ratio (test code = A/G Ratio) 0.9 1 0.7-1.6 [facility] fav.or.it [id number] 06:26:00 Test Item Value Reference Range Interpretation Comments eGFR (test code = eGFR) 95 [facility] CampusXpelhlvSALMJRASSB8664-87-67 06:26:00 Test Item Value Reference Range Interpretation Comments WBC (test code = WBC) 7.6 3.7-10.4 [id number] 06:26:00 Test Item Value Reference Range Interpretation Comments RBC (test code = RBC) 4.38 4.20-5.40 [facility]DkyqqbaRUUVQQZJQE2669-43-13 06:26:00 Test Item Value Reference Range Interpretation Comments Hgb (test code = Hgb) 13.1 12.0-16.0 [facility]awLuyvcnsGFBLKOKHLG2701-89-96 06:26:00 Test Item Value Reference Range Interpretation Comments Hct (test code = Hct) 39.4 36.0-48.0 [facility] PasoFyygzhfTWTLDJLREX9684-32-90 06:26:00 Test Item Value Reference Range Interpretation Comments MCV (test code = MCV) 90.0 80.0-98.0 [facility]PkqfmbyIXDTSDOYPN3576-37-92 06:26:00 Test Item Value Reference Range Interpretation Comments MCH (test code = MCH) 29.9 pg 27.0-31.0 [facility] CampusDorrpacOJGNIPYLHG3737-16-54 06:26:00 Test Item Value Reference Range Interpretation Comments MCHC (test code = MCHC) 33.2 32.0-36.0 [facility]2022-08-28 06:26:00 Test Item Value Reference Range Interpretation Comments Creatinine Lvl (test code = Creatinine 0.66 0.50-1.40 Lvl) [facility] PasoDlxixcmSCLCMUEKHX4424-35-24 06:26:00 Test Item Value Reference Range Interpretation Comments RDW (test code = RDW) 13.2 11.5-14.5 [facility] CampusQptksxyUFZQARMUYX5517-63-85 06:26:00 Test Item Value Reference Range Interpretation Comments Platelet (test code = Platelet) 176 133-450 [facility] PasoCeuxryeRFQIPOKECE0626-86-31 06:26:00 Test Item Value Reference Range Interpretation Comments MPV (test code = MPV) 10.0 7.4-10.4 [facility] PasoRnyehxbFRYDPLMHJF7625-04-28 06:26:00 Test Item Value Reference Range Interpretation Comments Segs (test code = Segs) 58.0 45.0-75.0 [place] 107532-08-28 06:26:00 Test Item Value Reference Range Interpretation Comments Lymphocytes (test code = Lymphocytes) 30.2 20.0-40.0 [place] 107532-08-28 06:26:00 Test Item Value Reference Range Interpretation Comments Monocytes (test code = Monocytes) 7.8 2.0-12.0 [place] 107532-08-28 06:26:00 Test Item Value Reference Range Interpretation Comments Eosinophils (test code = 3.7 See_Comment [A utomated message] The Eosinophils) system which ge nerated this result tra nsmitted reference range : <=4.0. The reference r lily was not used to int erpret this result as normal/abnormal . [place] 107532-08-28 06:26:00 Test Item Value Reference Range Interpretation Comments Basophils (test code = 0.3 See_Comment [Aut omated message] The Basophils) system which ge nerated this result tra nsmitted reference range : <=1.0. The reference r lily was not used to int erpret this result as normal/abnormal . [facility] PasoRgegnokLOSYBCUZVA4392-70-65 06:26:00 Test Item Value Reference Range Interpretation Comments Neutrophils # (test code = Neutrophils 4.4 1.5-8.1 #) [place] 107532-08-28 06:26:00 Test Item Value Reference Range Interpretation Comments Lymphocytes # (test code = Lymphocytes 2.3 1.0-5.5 #) [place] 107532-08-28 06:26:00 Test Item Value Reference Range Interpretation Comments Monocytes # (test code 0.6 See_Comment [Aut omated message] The = Monocytes #) system which generated this result tra nsmitted reference range : <=0.8. The reference r lily was not used to int erpret this result as normal/abnormal . [place] 107532-08-28 06:26:00 Test Item Value Reference Range Interpretation Comments Eosinophils # (test code 0.3 See_Comment [A utomated message] The = Eosinophils #) system whic h generated this result tra nsmitted reference range : <=0.5. The reference r lily was not used to int erpret this result as normal/abnormal . [facility]2022-08-28 06:26:00 Test Item Value Reference Range Interpretation Comments Sodium Lvl (test code = Sodium Lvl) 140 135-145 [facility] [id number] 06:26:00 Test Item Value Reference Range Interpretation Comments Potassium Lvl (test code = Potassium 4.1 3.5-5.1 Lvl) [facility] CampusCARDIAC [id number] 06:26:00 Test Item Value Reference Range Interpretation Comments HS Troponin I Baseline (test code = HS 46 Troponin I Baseline) [facility] [id number] 06:26:00 Test Item Value Reference Range Interpretation Comments Glucose Lvl (test code = Glucose Lvl) 122 70-99 [facility] [id number] 06:26:00 Test Item Value Reference Range Interpretation Comments BUN (test code = BUN) 12 10-18 [facility]2022-08-28 06:26:00 Test Item Value Reference Range Interpretation Comments Creatinine Lvl (test code = Creatinine 0.66 0.50-1.40 Lvl) [facility] [id number] 06:26:00 Test Item Value Reference Range Interpretation Comments Sodium Lvl (test code = Sodium Lvl) 140 135-145 [facility] [id number] 06:26:00 Test Item Value Reference Range Interpretation Comments Potassium Lvl (test code = Potassium 4.1 3.5-5.1 Lvl) [facility]2022-08-28 06:26:00 Test Item Value Reference Range Interpretation Comments Chloride Lvl (test code = Chloride Lvl) 109 95-109 [facility] [id number] 06:26:00 Test Item Value Reference Range Interpretation Comments CO2 (test code = CO2) -32 [facility]2022-08-28 06:26:00 Test Item Value Reference Range Interpretation Comments Calcium Lvl (test code = Calcium Lvl) 9.3 8.5-10.5 [facility]2022-08-28 06:26:00 Test Item Value Reference Range Interpretation Comments Total Protein (test code = Total 7.4 6.4-8.4 Protein) [facility]2022-08-28 06:26:00 Test Item Value Reference Range Interpretation Comments Albumin Lvl (test code = Albumin Lvl) 3.6 3.5-5.0 [facility] [id number] 06:26:00 Test Item Value Reference Range Interpretation Comments ALT (test code = ALT) 19 See_Comment [Auto mated message] The system which ge nerated this result transmit shaun reference range : <=65. The reference range was not used to interpr et this result as jackeline l/abnormal. [facility] [id number] 06:26:00 Test Item Value Reference Range Interpretation Comments AST (test code = AST) 19 See_Comment [Auto mated message] The system which ge nerated this result transmit shaun reference range : <=37. The reference range was not used to interpr et this result as jackeline l/abnormal. [facility] [id number] 06:26:00 Test Item Value Reference Range Interpretation Comments Chloride Lvl (test code = Chloride Lvl) 109 95-109 [facility] [id number] 06:26:00 Test Item Value Reference Range Interpretation Comments Alk Phos (test code = Alk Phos) 92 39-136 [facility] [id number] 06:26:00 Test Item Value Reference Range Interpretation Comments Bili Total (test code = Bili Total) 0.3 0.2-1.3 [facility] [id number] 06:26:00 Test Item Value Reference Range Interpretation Comments AGAP (test code = AGAP) 8.1 10.0-20.0 [facility] [id number] 06:26:00 Test Item Value Reference Range Interpretation Comments B/C Ratio (test code = B/C Ratio) 18 1 6-25 [facility] [id number] 06:26:00 Test Item Value Reference Range Interpretation Comments Globulin (test code = Globulin) 3.8 2.7-4.2 [facility] [id number] 06:26:00 Test Item Value Reference Range Interpretation Comments A/G Ratio (test code = A/G Ratio) 0.9 1 0.7-1.6 [facility] [id number] 06:26:00 Test Item Value Reference Range Interpretation Comments eGFR (test code = eGFR) 95 [facility] PasoSczrzttEYXXSQUTIE3116-56-69 06:26:00 Test Item Value Reference Range Interpretation Comments WBC (test code = WBC) 7.6 3.7-10.4 [facility] PasoIjfknuxSOZBPBTIRY8706-97-94 06:26:00 Test Item Value Reference Range Interpretation Comments RBC (test code = RBC) 4.38 4.20-5.40 [place] 107532-08-28 06:26:00 Test Item Value Reference Range Interpretation Comments Hgb (test code = Hgb) 13.1 12.0-16.0 [place] 107532-08-28 06:26:00 Test Item Value Reference Range Interpretation Comments Hct (test code = Hct) 39.4 36.0-48.0 [facility] PasoHkgdznyCWQJAEVHEY5324-34-70 06:26:00 Test Item Value Reference Range Interpretation Comments MCV (test code = MCV) 90.0 80.0-98.0 [place] 107532-08-28 06:26:00 Test Item Value Reference Range Interpretation Comments MCH (test code = MCH) 29.9 pg 27.0-31.0 [facility] PasoYgbggqaFJXGBOOYYQ9321-42-92 06:26:00 Test Item Value Reference Range Interpretation Comments MCHC (test code = MCHC) 33.2 32.0-36.0 [facility] PasoMcjifaoDXGMXGVBSU3492-40-38 06:26:00 Test Item Value Reference Range Interpretation Comments RDW (test code = RDW) 13.2 11.5-14.5 [facility] PasoOfhkcfzWXERCNOMHV4167-79-96 06:26:00 Test Item Value Reference Range Interpretation Comments Platelet (test code = Platelet) 176 133-450 [facility] PasoFfkpsnoBFTIOGADRH3781-37-51 06:26:00 Test Item Value Reference Range Interpretation Comments MPV (test code = MPV) 10.0 7.4-10.4 [facility] PasoPlfvbtwMXGFDDCEWF9366-76-52 06:26:00 Test Item Value Reference Range Interpretation Comments Segs (test code = Segs) 58.0 45.0-75.0 [facility] PasoYnubkxdQERQDMMNCO6490-84-77 06:26:00 Test Item Value Reference Range Interpretation Comments Lymphocytes (test code = Lymphocytes) 30.2 20.0-40.0 [facility] PasoNpwonjkERAPDMASAD8065-94-84 06:26:00 Test Item Value Reference Range Interpretation Comments Monocytes (test code = Monocytes) 7.8 2.0-12.0 [facility] PasoDiceoemMKKGMTPAWP7963-25-41 06:26:00 Test Item Value Reference Range Interpretation Comments Eosinophils (test code = 3.7 See_Comment [A utomated message] The Eosinophils) system which ge nerated this result tra nsmitted reference range : <=4.0. The reference r lily was not used to int erpret this result as normal/abnormal . [facility] PasoNzpajvnNQKWOUKUDN7324-86-24 06:26:00 Test Item Value Reference Range Interpretation Comments Basophils (test code = 0.3 See_Comment [Aut omated message] The Basophils) system which ge nerated this result tra nsmitted reference range : <=1.0. The reference r lily was not used to int erpret this result as normal/abnormal . [facility] PasoJoysvddAYPDZXRSBZ7026-18-19 06:26:00 Test Item Value Reference Range Interpretation Comments Neutrophils # (test code = Neutrophils 4.4 1.5-8.1 #) [facility] PasoXpfaetgPSHUVJFQLT5556-80-62 06:26:00 Test Item Value Reference Range Interpretation Comments Lymphocytes # (test code = Lymphocytes 2.3 1.0-5.5 #) [facility] PasoTndfbbtUARRCBKENN1641-58-21 06:26:00 Test Item Value Reference Range Interpretation Comments Monocytes # (test code 0.6 See_Comment [Aut omated message] The = Monocytes #) system which generated this result tra nsmitted reference range : <=0.8. The reference r lily was not used to int erpret this result as normal/abnormal . [facility] PasoMfjifheWMVAXHORBU6519-82-05 06:26:00 Test Item Value Reference Range Interpretation Comments Eosinophils # (test code 0.3 See_Comment [A utomated message] The = Eosinophils #) system whic h generated this result tra nsmitted reference range : <=0.5. The reference r lily was not used to int erpret this result as normal/abnormal . [facility] [id number] 06:26:00 Test Item Value Reference Range Interpretation Comments CO2 (test code = CO2) 27 24-32 [facility] [id number] 06:26:00 Test Item Value Reference Range Interpretation Comments Calcium Lvl (test code = Calcium Lvl) 9.3 8.5-10.5 [place] 626922-08-28 06:26:00 Test Item Value Reference Range Interpretation Comments Total Protein (test code = Total 7.4 6.4-8.4 Protein) [facility]CARD[facility]ASC[id number] 06:26:00 Test Item Value Reference Range Interpretation Comments HS Troponin I Baseline (test code = HS 46 Troponin I Baseline) [facility]2022-08-28 06:26:00 Test Item Value Reference Range Interpretation Comments Glucose Lvl (test code = Glucose Lvl) 122 70-99 [facility]2022-08-28 06:26:00 Test Item Value Reference Range Interpretation Comments BUN (test code = BUN) 12 - [facility]2022-08-28 06:26:00 Test Item Value Reference Range Interpretation Comments Creatinine Lvl (test code = Creatinine 0.66 0.50-1.40 Lvl) [facility]2022-08-28 06:26:00 Test Item Value Reference Range Interpretation Comments Sodium Lvl (test code = Sodium Lvl) 140 135-145 [facility]2022-08-28 06:26:00 Test Item Value Reference Range Interpretation Comments Potassium Lvl (test code = Potassium 4.1 3.5-5.1 Lvl) [facility]2022-08-28 06:26:00 Test Item Value Reference Range Interpretation Comments Chloride Lvl (test code = Chloride Lvl) 109 95-109 [facility]2022-08-28 06:26:00 Test Item Value Reference Range Interpretation Comments CO2 (test code = CO2) 27 24-32 [place] 626922-08-28 06:26:00 Test Item Value Reference Range Interpretation Comments Calcium Lvl (test code = Calcium Lvl) 9.3 8.5-10.5 [facility]2022-08-28 06:26:00 Test Item Value Reference Range Interpretation Comments Total Protein (test code = Total 7.4 6.4-8.4 Protein) [facility]2022-08-28 06:26:00 Test Item Value Reference Range Interpretation Comments Albumin Lvl (test code = Albumin Lvl) 3.6 3.5-5.0 [place] 626922-08-28 06:26:00 Test Item Value Reference Range Interpretation Comments ALT (test code = ALT) 19 See_Comment [Auto mated message] The system which ge nerated this result transmit shaun reference range : <=65. The reference range was not used to interpr et this result as jackeline l/abnormal. [facility] [id number] 06:26:00 Test Item Value Reference Range Interpretation Comments AST (test code = AST) 19 See_Comment [Auto mated message] The system which ge nerated this result transmit shaun reference range : <=37. The reference range was not used to interpr et this result as jackeline l/abnormal. [facility] [id number] 06:26:00 Test Item Value Reference Range Interpretation Comments Alk Phos (test code = Alk Phos) 92 39-136 [facility] [id number] 06:26:00 Test Item Value Reference Range Interpretation Comments Bili Total (test code = Bili Total) 0.3 0.2-1.3 [facility] [id number] 06:26:00 Test Item Value Reference Range Interpretation Comments AGAP (test code = AGAP) 8.1 10.0-20.0 [facility] [id number] 06:26:00 Test Item Value Reference Range Interpretation Comments B/C Ratio (test code = B/C Ratio) 18 1 6-25 [facility] [id number] 06:26:00 Test Item Value Reference Range Interpretation Comments Globulin (test code = Globulin) 3.8 2.7-4.2 [facility] [id number] 06:26:00 Test Item Value Reference Range Interpretation Comments A/G Ratio (test code = A/G Ratio) 0.9 1 0.7-1.6 [facility] [id number] 06:26:00 Test Item Value Reference Range Interpretation Comments eGFR (test code = eGFR) 95 [place] 107532-08-28 06:26:00 Test Item Value Reference Range Interpretation Comments WBC (test code = WBC) 7.6 3.7-10.4 [facility] CampusVhxrqzbYGFKGKTOVZ1527-05-83 06:26:00 Test Item Value Reference Range Interpretation Comments RBC (test code = RBC) 4.38 4.20-5.40 [facility] CampusKnktuyhSIQVPGUYHP0379-74-58 06:26:00 Test Item Value Reference Range Interpretation Comments Hgb (test code = Hgb) 13.1 12.0-16.0 [facility] PasoEdeqlobSRIKKYOCEJ3143-38-64 06:26:00 Test Item Value Reference Range Interpretation Comments Hct (test code = Hct) 39.4 36.0-48.0 [facility] PasoDwvtktbFPGVTOOZEB2965-28-20 06:26:00 Test Item Value Reference Range Interpretation Comments MCV (test code = MCV) 90.0 80.0-98.0 [facility] PasoGpxncyiNLWWRPQBJO1601-65-33 06:26:00 Test Item Value Reference Range Interpretation Comments MCH (test code = MCH) 29.9 pg 27.0-31.0 [facility] PasoHqevkizENQXOXUHWW7298-10-11 06:26:00 Test Item Value Reference Range Interpretation Comments MCHC (test code = MCHC) 33.2 32.0-36.0 [facility] PasoGzfzpdzZRAUJOUQAR8371-47-99 06:26:00 Test Item Value Reference Range Interpretation Comments RDW (test code = RDW) 13.2 11.5-14.5 [facility] PasoWaiagksTEAHYJWJWL0734-70-19 06:26:00 Test Item Value Reference Range Interpretation Comments Platelet (test code = Platelet) 176 133-450 [facility] PasoVtzlmssKCSEFKFVWX9150-70-46 06:26:00 Test Item Value Reference Range Interpretation Comments MPV (test code = MPV) 10.0 7.4-10.4 [place] 107532-08-28 06:26:00 Test Item Value Reference Range Interpretation Comments Segs (test code = Segs) 58.0 45.0-75.0 [facility] PasoSpewnvgHEOUXDIKOZ0268-71-44 06:26:00 Test Item Value Reference Range Interpretation Comments Lymphocytes (test code = Lymphocytes) 30.2 20.0-40.0 [place] 107532-08-28 06:26:00 Test Item Value Reference Range Interpretation Comments Monocytes (test code = Monocytes) 7.8 2.0-12.0 [place] 107532-08-28 06:26:00 Test Item Value Reference Range Interpretation Comments Eosinophils (test code = 3.7 See_Comment [A utomated message] The Eosinophils) system which ge nerated this result tra nsmitted reference range : <=4.0. The reference r lily was not used to int erpret this result as normal/abnormal . [facility] CampusQlucdwpNMIGQIPUPF0716-12-83 06:26:00 Test Item Value Reference Range Interpretation Comments Basophils (test code = 0.3 See_Comment [Aut omated message] The Basophils) system which ge nerated this result tra nsmitted reference range : <=1.0. The reference r lily was not used to int erpret this result as normal/abnormal . [facility] CampusYuhcvcbXNHNLWHFYW9519-94-31 06:26:00 Test Item Value Reference Range Interpretation Comments Neutrophils # (test code = Neutrophils 4.4 1.5-8.1 #) [place] 107532-08-28 06:26:00 Test Item Value Reference Range Interpretation Comments Lymphocytes # (test code = Lymphocytes 2.3 1.0-5.5 #) [place] 107532-08-28 06:26:00 Test Item Value Reference Range Interpretation Comments Monocytes # (test code 0.6 See_Comment [Aut omated message] The = Monocytes #) system which generated this result tra nsmitted reference range : <=0.8. The reference r lily was not used to int erpret this result as normal/abnormal . [facility] CampusQzuchmgIMGKQCPETO1211-21-94 06:26:00 Test Item Value Reference Range Interpretation Comments Eosinophils # (test code 0.3 See_Comment [A utomated message] The = Eosinophils #) system whic h generated this result tra nsmitted reference range : <=0.5. The reference r lily was not used to int erpret this result as normal/abnormal . [facility] fav[facility]or.it [id number] 06:26:00 Test Item Value Reference Range Interpretation Comments Albumin Lvl (test code = Albumin Lvl) 3.6 3.5-5.0 [facility] [id number] 06:26:00 Test Item Value Reference Range Interpretation Comments ALT (test code = ALT) 19 See_Comment [Auto mated message] The system which ge nerated this result transmit shaun reference range : <=65. The reference range was not used to interpr et this result as jackeline l/abnormal. [facility] fav[facility]or.it [id number] 06:26:00 Test Item Value Reference Range Interpretation Comments AST (test code = AST) 19 See_Comment [Auto mated message] The system which ge nerated this result transmit shaun reference range : <=37. The reference range was not used to interpr et this result as jackeline l/abnormal. [facility]CARD[facility] [id number] 06:26:00 Test Item Value Reference Range Interpretation Comments HS Troponin I Baseline (test code = HS 46 Troponin I Baseline) [facility] [id number] 06:26:00 Test Item Value Reference Range Interpretation Comments Glucose Lvl (test code = Glucose Lvl) 122 70-99 [facility] [id number] 06:26:00 Test Item Value Reference Range Interpretation Comments BUN (test code = BUN) 12 7-22 [facility] [id number] 06:26:00 Test Item Value Reference Range Interpretation Comments Creatinine Lvl (test code = Creatinine 0.66 0.50-1.40 Lvl) [facility] [id number] 06:26:00 Test Item Value Reference Range Interpretation Comments Sodium Lvl (test code = Sodium Lvl) 140 135-145 [facility] [id number] 06:26:00 Test Item Value Reference Range Interpretation Comments Potassium Lvl (test code = Potassium 4.1 3.5-5.1 Lvl) [facility] [id number] 06:26:00 Test Item Value Reference Range Interpretation Comments Chloride Lvl (test code = Chloride Lvl) 109 95-109 [facility] [id number] 06:26:00 Test Item Value Reference Range Interpretation Comments CO2 (test code = CO2) 27 24-32 [facility] [id number] 06:26:00 Test Item Value Reference Range Interpretation Comments Calcium Lvl (test code = Calcium Lvl) 9.3 8.5-10.5 [facility] [id number] 06:26:00 Test Item Value Reference Range Interpretation Comments Total Protein (test code = Total 7.4 6.4-8.4 Protein) [facility]2022-08-28 06:26:00 Test Item Value Reference Range Interpretation Comments Albumin Lvl (test code = Albumin Lvl) 3.6 3.5-5.0 [facility] [id number] 06:26:00 Test Item Value Reference Range Interpretation Comments ALT (test code = ALT) 19 See_Comment [Auto mated message] The system which ge nerated this result transmit shaun reference range : <=65. The reference range was not used to interpr et this result as jackeline l/abnormal. [facility] [id number] 06:26:00 Test Item Value Reference Range Interpretation Comments AST (test code = AST) 19 See_Comment [Auto mated message] The system which ge nerated this result transmit shaun reference range : <=37. The reference range was not used to interpr et this result as jackeline l/abnormal. [facility] [id number] 06:26:00 Test Item Value Reference Range Interpretation Comments Alk Phos (test code = Alk Phos) 92 39-136 [facility] [id number] 06:26:00 Test Item Value Reference Range Interpretation Comments Bili Total (test code = Bili Total) 0.3 0.2-1.3 [facility] [id number] 06:26:00 Test Item Value Reference Range Interpretation Comments AGAP (test code = AGAP) 8.1 10.0-20.0 [facility] [id number] 06:26:00 Test Item Value Reference Range Interpretation Comments B/C Ratio (test code = B/C Ratio) 18 1 6-25 [facility] [id number] 06:26:00 Test Item Value Reference Range Interpretation Comments Globulin (test code = Globulin) 3.8 2.7-4.2 [facility] [id number] 06:26:00 Test Item Value Reference Range Interpretation Comments A/G Ratio (test code = A/G Ratio) 0.9 1 0.7-1.6 [facility] [id number] 06:26:00 Test Item Value Reference Range Interpretation Comments eGFR (test code = eGFR) 95 [place] 107532-08-28 06:26:00 Test Item Value Reference Range Interpretation Comments WBC (test code = WBC) 7.6 3.7-10.4 [place] 107532-08-28 06:26:00 Test Item Value Reference Range Interpretation Comments RBC (test code = RBC) 4.38 4.20-5.40 [place] 107532-08-28 06:26:00 Test Item Value Reference Range Interpretation Comments Hgb (test code = Hgb) 13.1 12.0-16.0 [place] 107532-08-28 06:26:00 Test Item Value Reference Range Interpretation Comments Hct (test code = Hct) 39.4 36.0-48.0 [place] 107532-08-28 06:26:00 Test Item Value Reference Range Interpretation Comments MCV (test code = MCV) 90.0 80.0-98.0 [place] 107532-08-28 06:26:00 Test Item Value Reference Range Interpretation Comments MCH (test code = MCH) 29.9 pg 27.0-31.0 [place] 107532-08-28 06:26:00 Test Item Value Reference Range Interpretation Comments MCHC (test code = MCHC) 33.2 32.0-36.0 [place] 107532-08-28 06:26:00 Test Item Value Reference Range Interpretation Comments RDW (test code = RDW) 13.2 11.5-14.5 [place] 107532-08-28 06:26:00 Test Item Value Reference Range Interpretation Comments Platelet (test code = Platelet) 176 133-450 [place] 107532-08-28 06:26:00 Test Item Value Reference Range Interpretation Comments MPV (test code = MPV) 10.0 7.4-10.4 [place] 107532-08-28 06:26:00 Test Item Value Reference Range Interpretation Comments Segs (test code = Segs) 58.0 45.0-75.0 [place] 107532-08-28 06:26:00 Test Item Value Reference Range Interpretation Comments Lymphocytes (test code = Lymphocytes) 30.2 20.0-40.0 [place] [address]-08-28 06:26:00 Test Item Value Reference Range Interpretation Comments Monocytes (test code = Monocytes) 7.8 2.0-12.0 [place] [address]-08-28 06:26:00 Test Item Value Reference Range Interpretation Comments Eosinophils (test code = 3.7 See_Comment [A utomated message] The Eosinophils) system which ge nerated this result tra nsmitted reference range : <=4.0. The reference r lily was not used to int erpret this result as normal/abnormal . [id number] 06:26:00 Test Item Value Reference Range Interpretation Comments Basophils (test code = 0.3 See_Comment [Aut omated message] The Basophils) system which ge nerated this result tra nsmitted reference range : <=1.0. The reference r lily was not used to int erpret this result as normal/abnormal . [facility]oLlrchpsVWKJWLBFQP5954-62-96 06:26:00 Test Item Value Reference Range Interpretation Comments Neutrophils # (test code = Neutrophils 4.4 1.5-8.1 #) [facility]GcxzqalVDNGPYAZHW5890-17-74 06:26:00 Test Item Value Reference Range Interpretation Comments Lymphocytes # (test code = Lymphocytes 2.3 1.0-5.5 #) [facility] PasoZnglybgKOTZXEKVEN9185-10-62 06:26:00 Test Item Value Reference Range Interpretation Comments Monocytes # (test code 0.6 See_Comment [Aut omated message] The = Monocytes #) system which generated this result tra nsmitted reference range : <=0.8. The reference r lily was not used to int erpret this result as normal/abnormal . [facility] [id number] 06:26:00 Test Item Value Reference Range Interpretation Comments Eosinophils # (test code 0.3 See_Comment [A utomated message] The = Eosinophils #) system whic h generated this result tra nsmitted reference range : <=0.5. The reference r lily was not used to int erpret this result as normal/abnormal . [facility] [id number] 06:26:00 Test Item Value Reference Range Interpretation Comments Alk Phos (test code = Alk Phos) 92 39-136 [facility] [id number] 06:26:00 Test Item Value Reference Range Interpretation Comments Bili Total (test code = Bili Total) 0.3 0.2-1.3 [facility] [id number] 06:26:00 Test Item Value Reference Range Interpretation Comments AGAP (test code = AGAP) 8.1 10.0-20.0 [facility] [id number] 06:26:00 Test Item Value Reference Range Interpretation Comments HS Troponin I Baseline (test code = HS 46 Troponin I Baseline) [place] 626922-08-28 06:26:00 Test Item Value Reference Range Interpretation Comments Glucose Lvl (test code = Glucose Lvl) 122 70-99 [place] 626922-08-28 06:26:00 Test Item Value Reference Range Interpretation Comments BUN (test code = BUN) 12 7-22 [place] 626922-08-28 06:26:00 Test Item Value Reference Range Interpretation Comments Creatinine Lvl (test code = Creatinine 0.66 0.50-1.40 Lvl) [place] 626922-08-28 06:26:00 Test Item Value Reference Range Interpretation Comments Sodium Lvl (test code = Sodium Lvl) 140 135-145 [place] 626922-08-28 06:26:00 Test Item Value Reference Range Interpretation Comments Potassium Lvl (test code = Potassium 4.1 3.5-5.1 Lvl) [place] 626922-08-28 06:26:00 Test Item Value Reference Range Interpretation Comments Chloride Lvl (test code = Chloride Lvl) 109 95-109 [place] 626922-08-28 06:26:00 Test Item Value Reference Range Interpretation Comments CO2 (test code = CO2) 27 24-32 [place] 626922-08-28 06:26:00 Test Item Value Reference Range Interpretation Comments Calcium Lvl (test code = Calcium Lvl) 9.3 8.5-10.5 [place] 626922-08-28 06:26:00 Test Item Value Reference Range Interpretation Comments Total Protein (test code = Total 7.4 6.4-8.4 Protein) [place] 626922-08-28 06:26:00 Test Item Value Reference Range Interpretation Comments Albumin Lvl (test code = Albumin Lvl) 3.6 3.5-5.0 [place] 626922-08-28 06:26:00 Test Item Value Reference Range Interpretation Comments ALT (test code = ALT) 19 See_Comment [Auto mated message] The system which ge nerated this result transmit shaun reference range : <=65. The reference range was not used to interpr et this result as jackeline l/abnormal. [place] 626922-08-28 06:26:00 Test Item Value Reference Range Interpretation Comments AST (test code = AST) 19 See_Comment [Auto mated message] The system which ge nerated this result transmit shaun reference range : <=37. The reference range was not used to interpr et this result as jackeline l/abnormal. [facility] fav.or.it [id number] 06:26:00 Test Item Value Reference Range Interpretation Comments Alk Phos (test code = Alk Phos) 92 39-136 [facility] [id number] 06:26:00 Test Item Value Reference Range Interpretation Comments Bili Total (test code = Bili Total) 0.3 0.2-1.3 [facility] [id number] 06:26:00 Test Item Value Reference Range Interpretation Comments AGAP (test code = AGAP) 8.1 10.0-20.0 [facility] [id number] 06:26:00 Test Item Value Reference Range Interpretation Comments B/C Ratio (test code = B/C Ratio) 18 1 6-25 [facility] [id number] 06:26:00 Test Item Value Reference Range Interpretation Comments Globulin (test code = Globulin) 3.8 2.7-4.2 [facility] [id number] 06:26:00 Test Item Value Reference Range Interpretation Comments A/G Ratio (test code = A/G Ratio) 0.9 1 0.7-1.6 [facility] [id number] 06:26:00 Test Item Value Reference Range Interpretation Comments eGFR (test code = eGFR) 95 [facility] CampusQiuxpjsEZZCKQRJFW6750-68-68 06:26:00 Test Item Value Reference Range Interpretation Comments WBC (test code = WBC) 7.6 3.7-10.4 [facility] CampusQfqjdzcSOAIACWAHB7127-09-07 06:26:00 Test Item Value Reference Range Interpretation Comments RBC (test code = RBC) 4.38 4.20-5.40 [facility] CampusOwewbxeVSZLQAERMN0800-73-11 06:26:00 Test Item Value Reference Range Interpretation Comments Hgb (test code = Hgb) 13.1 12.0-16.0 [facility] CampusYaqgdquAXTDUHCPLO2850-06-39 06:26:00 Test Item Value Reference Range Interpretation Comments Hct (test code = Hct) 39.4 36.0-48.0 [facility] PasoUqzgpsmSLGIOKREMU1534-00-00 06:26:00 Test Item Value Reference Range Interpretation Comments MCV (test code = MCV) 90.0 80.0-98.0 [facility] PasoMhtajcbWUPTYYSSQW8166-62-35 06:26:00 Test Item Value Reference Range Interpretation Comments MCH (test code = MCH) 29.9 pg 27.0-31.0 [facility] PasoOymtrdfPORBABHNHA5459-24-71 06:26:00 Test Item Value Reference Range Interpretation Comments MCHC (test code = MCHC) 33.2 32.0-36.0 [facility] PasoInnnpguIUVKEMSFVA4549-94-95 06:26:00 Test Item Value Reference Range Interpretation Comments RDW (test code = RDW) 13.2 11.5-14.5 [facility] PasoLrxirywOABFTQPMQY2042-61-67 06:26:00 Test Item Value Reference Range Interpretation Comments Platelet (test code = Platelet) 176 133-450 [facility] PasoPlgdbrsKQUYQRCGFI2532-48-09 06:26:00 Test Item Value Reference Range Interpretation Comments MPV (test code = MPV) 10.0 7.4-10.4 [facility] PasoEsvhudyNGQLRDMBPV3512-56-66 06:26:00 Test Item Value Reference Range Interpretation Comments Segs (test code = Segs) 58.0 45.0-75.0 [facility] PasoEzqphxoTGKFLDJHAP6038-30-87 06:26:00 Test Item Value Reference Range Interpretation Comments Lymphocytes (test code = Lymphocytes) 30.2 20.0-40.0 [facility] PasoDhegcxoRAHMMBXEYK4241-10-38 06:26:00 Test Item Value Reference Range Interpretation Comments Monocytes (test code = Monocytes) 7.8 2.0-12.0 [place] 107532-08-28 06:26:00 Test Item Value Reference Range Interpretation Comments Eosinophils (test code = 3.7 See_Comment [A utomated message] The Eosinophils) system which ge nerated this result tra nsmitted reference range : <=4.0. The reference r lily was not used to int erpret this result as normal/abnormal . [facility] PasoKfifkeqTOKGLWDIKV8773-59-16 06:26:00 Test Item Value Reference Range Interpretation Comments Basophils (test code = 0.3 See_Comment [Aut omated message] The Basophils) system which ge nerated this result tra nsmitted reference range : <=1.0. The reference r lily was not used to int erpret this result as normal/abnormal . [facility] PasoGocwacgPENRNVLXXN3407-07-16 06:26:00 Test Item Value Reference Range Interpretation Comments Neutrophils # (test code = Neutrophils 4.4 1.5-8.1 #) [facility] PasoLjtnponTZHVODCWGN5103-13-55 06:26:00 Test Item Value Reference Range Interpretation Comments Lymphocytes # (test code = Lymphocytes 2.3 1.0-5.5 #) [facility] PasoDynviymKYPCUXXNSM9121-42-16 06:26:00 Test Item Value Reference Range Interpretation Comments Monocytes # (test code 0.6 See_Comment [Aut omated message] The = Monocytes #) system which generated this result tra nsmitted reference range : <=0.8. The reference r lily was not used to int erpret this result as normal/abnormal . [facility] PasoKwbhiggMKPNPPMESW9204-77-93 06:26:00 Test Item Value Reference Range Interpretation Comments Eosinophils # (test code 0.3 See_Comment [A utomated message] The = Eosinophils #) system whic h generated this result tra nsmitted reference range : <=0.5. The reference r lily was not used to int erpret this result as normal/abnormal . [facility] [id number] 06:51:00 Test Item Value Reference Range Interpretation Comments Urine culture SEE NOTE CULTURE, URIN E, (test code = ROUTINE Micro N umber: 630-4) [id number] Test S tatus: Final Specimen Source: Not giv en Specimen Qualit y: Adequate Result : Mixed genital f bud isolated. These superficial jean-paul teria are not indicat ivette of a urinary tract infection. No f urther organism identification is warranted on is specimen. If clinically jaylen cated, recollect clean-catch, mid-stream uri ne and transfer immedi ately to Urine Cultur e Transport Tube. RAC (test code Performing = RAC) Organization Information: Site ID: RONELA Name[facility] Address: [address] [place] [id number] Director: Bandar [facility] [id number] 09:25:00 Test Item Value Reference Range Interpretation Comments Glucose (test code 109 mg/dL 65-139 Non-fast ing = 2345-7) reference interval BUN (test code = 11 mg/dL 10-214-0) Creatinine (test 0.68 mg/dL 0.5-1.05 code = 2160-0) eGFR (test code = See_Comment The eGFR i s based 8257) on the CKD-EPI 2020 equation. To calculate the n ew eGFR from a previous Creatinine or Cystatin Cresul t, go to [email or web address] ne y.org/profmomoio na ls/kdoqi/gfr%5F ca lculator [Automated message] The [...] 2075-0) CO2 (test code = 32 mmol/L -32 2027-11) Calcium (test code 9.5 mg/dL 8.6-10.4 = 93483-5) Protein (test code 6.6 g/dL 6.1-8.1 = 2885-2) Albumin, S (test 4.0 g/dL 3.6-5.1 code = 1751-7) Globulin, total See_Comment [Automated (test code = message] The 66656-7) system which generated this result transmitted reference range : 1.9 - 3.7 g/dL (calc). The reference range was not used to interpret this result as normal/abnormal . Albumin/globulin See_Comment [Automated ratio (test code = message] The 3129-0) system which generated this result transmitted reference range : 1.0 - 2.5 (calc ). The reference range was not used to interpr et this result as normal/abnormal . Total bilirubin 0.4 mg/dL 0.2-1.2 (test code = 1974-) Alkaline 80 U/L 37-153 phosphatase (test code = 6768-6) AST (test code = 15 U/L 10-35 1920-8) ALT (test code = 10 U/L 6- 1742-6) TARA (test code = FASTING:NO FASTING: TARA) NO RAC (test code = Performing RAC) Organization Information: Site ID: RGA Name: [facility] Address: [address] [place] [phone] Director: Bnadar Martinez [facility] with platelet and pirzlisycsxb8344-53-39 09:25:00 Test Item Value Reference Range Interpretation Comments WBC (test code = See_Comment [Automated 5165-2) message] The system which generated this result transmitted reference range : 3.8 - 10.8 Thousand/uL. Th e reference range was not used to interpret this result as normal/abnormal . RBC (test code = See_Comment [Automated 399-8) message] The system which generated this result [...] RAC) Organization Information: Site ID: RGA Name: [facility] Address: [address] [place] [phone] Director: [facility] [id number] 09:25:00 Test Item Value Reference Range Interpretation Comments Glucose (test code 109 mg/dL 65-139 Non-fast ing = 2345-7) reference interval BUN (test code = 11 mg/dL 10-21 3094-0) Creatinine (test 0.68 mg/dL 0.50-1.05 code = 2160-0) eGFR (test code = [...] CO2 (test code = 32 mmol/L 20-32 2027-9) Calcium (test code 9.5 mg/dL 8.6-10.4 = 38691-3) Protein (test code 6.6 g/dL 6.1-8.1 = 2885-2) Albumin, S (test 4.0 g/dL 3.6-5.1 code = 1751-7) Globulin, total See_Comment [Automated (test code = message] The 81608-3) system which generated this result transmitted reference range : 1.9 - 3.7 g/dL (calc). The reference range was not used to interpret this result as normal/abnormal . Albumin/globulin See_Comment [Automated ratio (test code = message] The 1759-0) system which generated this result transmitted reference range : 1.0 - 2.5 (calc ). The reference range was not used to interpr et this result as normal/abnormal . Total bilirubin 0.4 mg/dL 0.2-1.2 (test code = 1974-) Alkaline 80 U/L 37-153 phosphatase (test code = 6768-6) AST (test code = 15 U/L 10-35 1919-8) ALT (test code = 10 U/L -1741-6) TARA (test code = FASTING:NO FASTING: TARA) NO RAC (test code = Performing RAC) Organization Information: Site ID: RGA Name: [facility] Address: [address] [place] [phone] Director: Bandar Martinez [facility] with platelet and epkzhsxwhkve5583-11-14 09:25:00 Test Item Value Reference Range Interpretation Comments WBC (test code = See_Comment [Automated 1790-2) message] The system which generated this result transmitted reference range : 3.8 - 10.8 Thousand/uL. Th e reference range was not used to interpret this result as normal/abnormal . RBC (test code = See_Comment [Automated 789-8) message] The system which generated this result transmitted reference range : 3.80 - 5.10 Million/uL. The reference range was not used to interpret this result as normal/abnormal . HGB (test code = 12.7 g/dL 11.7-15.5 718-7) HCT (test code = 37.7 % 35.0-45.0 4544-3) MCV (test code = 87.3 fL 80.0-100.0 787-2) MCH (test code = 29.4 pg 27.0-33.0 785-6) MCHC (test code = 33.7 g/dL 32.0-36.0 786-4) RDW (test code = 12.0 % 11.0-15.0 788-0) Platelet count See_Comment [Automated [...] RAC) Organization Information: Site ID: RGA Name: [facility] Address: [address] [place] [phone] Director: Bandar [facility] [id number] 09:25:00 Test Item Value Reference Range Interpretation Comments Glucose (test code 109 mg/dL 65-139 Non-fast ing = 2345-7) reference interval BUN (test code = 11 mg/dL 7- 3094-0) Creatinine (test 0.68 mg/dL 0.50-1.05 code = 2160-0) eGFR (test code = 95 See_Comment The eGFR i s based 8257) [...] CO2 (test code = 32 mmol/L 20-32 8-9) Calcium (test code 9.5 mg/dL 8.6-10.4 = 35834-2) Protein (test code 6.6 g/dL 6.1-8.1 = 2885-2) Albumin, S (test 4.0 g/dL 3.6-5.1 code = 1751-7) Globulin, total 2.6 See_Comment [Automated (test code = message] The 76903-9) system which generated this result transmitted reference range : 1.9 - 3.7 g/dL (calc). The reference range was not used to interpret this result as normal/abnormal . Albumin/globulin 1.5 See_Comment [Automated ratio (test code = message] The ) system which generated this result transmitted reference range : 1.0 - 2.5 (calc ). The reference range was not used to interpr et this result as normal/abnormal . Total bilirubin 0.4 mg/dL 0.2-1.2 (test code = 1974-2) Alkaline 80 U/L 37-153 phosphatase (test code = 6768-6) AST (test code = 15 U/L 10-35 1920-8) ALT (test code = 10 U/L 6-29 1742-6) TARA (test code = FASTING:NO FASTING: TARA) NO RAC (test code = Performing RAC) Organization Information: Site ID: RGA Name: [facility] Address: [address] [place] [phone] Director: aBndar Martinez [facility] with platelet and kpcjeistlrty5006-81-14 09:25:00 Test Item Value Reference Range Interpretation Comments WBC (test code = 6.8 See_Comment [Automated 8559-2) message] The system which generated this result transmitted reference range : 3.8 - 10.8 Thousand/uL. Th e reference range was not used to interpret this result as normal/abnormal . RBC (test code = 4.32 See_Comment [Automated 789-8) message] The system which generated this result transmitted reference range : 3.80 - 5.10 Million/uL. The reference range was not used to interpret this result as normal/abnormal . HGB (test code = 12.7 g/dL 11.7-15.5 718-7) HCT (test code = 37.7 % 35.0-45.0 4544-3) MCV (test code = 87.3 fL 80.0-100.0 787-2) MCH (test code = 29.4 pg 27.0-33.0 785-6) MCHC (test code = 33.7 g/dL 32.0-36.0 786-4) RDW (test code = 12.0 % 11.0-15.0 788-0) Platelet count 176 See_Comment [Automated (test code = message] The 777-3) system which generated this result transmitted reference range : 140 - 400 Thousand/uL. Th e reference range was not used to interpret this result as normal/abnormal . MPV (test code = 12.0 fL 7.5-12.5 776-5) Neutrophils, 3998 See_Comment [Automated absolute (test message] The code = 751-8) system which generated this result transmitted reference range : 1,500 - 7,800 cells/uL. The reference range was not used to interpret this result as normal/abnormal . Lymphocytes, 1979 See_Comment [Automated absolute (test message] The code = 731-0) system which generated this result transmitted reference range : 850 - 3,900 cells/uL. The reference range was not used to interpret this result as normal/abnormal . Monocytes, 585 See_Comment [Automated absolute (test message] The code = 742-7) system which generated this result transmitted reference range : 200 - 950 cells/uL. The reference range was not used to interpret this result as normal/abnormal . Eosinophils, 190 See_Comment [Automated absolute (test message] The code = 711-2) system which generated this result transmitted reference range : 15 - 500 cells/uL. The reference range was not used to interpret this result as normal/abnormal . Basophils, 48 See_Comment [Automated absolute (test message] The code [...] RAC) Organization Information: Site ID: RGA Name: [facility] Address: [address] [place] [phone] Director: Bandar Martinez [facility] urinalysis effeqmbm4519-89-07 19:44:00 Test Item Value Reference Range Interpretation Comments Color urine, POC (test Yellow code = 3320688) Clarity urine, POC (test Hazy code = 8171740) Glucose urine, POC (test Negative Negative code = 2826607) Bilirubin urine, POC Negative Negative (test code = 7710788) Ketones urine, POC (test Negative Negative code = 4971953) Specific gravity urine, 1.005-1.030 POC (test code = 1199344) Blood urine, POC (test Trace Negative A code = 5570933) pH urine, POC (test code See_Comment [A utomated message] = 7607616) The system whic h generated this result transmitted ref erence range: 5.0, 5.5 , 6.0, 6.5, 7.0, 7.5, 8.0, 8.5. The refere nce range was not u sed to interpret this result as normal/abnor mal. Protein urine, POC (test Negative Negative code = 7356225) Urobilinogen urine, POC <2.0 See_Comment [Au tomated message] (test code = 8326324) The sy stem which generated this result transmitted ref erence range: <=2.0. T he reference range was not used to int erpret this result as normal/abnormal . Nitrite urine, POC (test Negative Negative code = 7357180) Leukocyte esterase Small Negative A urine, POC (test code = [id number]) Lab Interpretation (test Abnormal code = 10604-2) [facility] pathology [id number] 23:26:03 Test Item Value Reference Range Interpretation Comments Case number (test code = [id number]) Surgical pathology See link below for report (test code = PDF Lab Report 2255) Result status (test code This is Final Report = [id number]) for [id number] [facility] pathology [id number] 23:26:03 Test Item Value Reference Range Interpretation Comments Case number (test code = [id number]) Surgical pathology See link below for report (test code = PDF Lab Report 2255) Result status (test code This is Final Report = [id number]) for [id number] [facility] pathology [id number] 23:26:03 Test Item Value Reference Range Interpretation Comments Case number (test code = [id number]) Surgical pathology See link below for report (test code = PDF Lab Report 2255) Result status (test code This is Final Report = [id number]) for [id number] [facility]12 [id number] 19:28:00 Test Item Value Reference Range Interpretation Comments Vitamin B12 (test code = 1884 pg/mL 200-1100 H 2132-9) TARA (test code = TARA) FASTING:YES FASTING: YES RAC (test code = RAC) Performing Organization Information: Site ID: [facility] Name: [facility] Lab Address: [address] [place] [address] Director: Bandar Martinez Lab Interpretation (test Abnormal code = 21817-7) [facility] Center[facility]ritin [id number] 19:28:00 Test Item Value Reference Range Interpretation Comments Ferritin level (test 93 ng/mL 16-288 code = 2276-4) TARA (test code = TARA) FASTING:YES FASTING: YES RAC (test code = RAC) Performing Organization Information: Site ID: [facility] Name: [facility] Address: [address] [place] [address] Director: Bandar Martinez [facility] CenterHemoglobin [id number] 19:28:00 Test Item Value Reference Interpretation Comments Range Hemoglobin A1C See_Comment H For someone w ithout (test code = known diabetes, a 4548-4) hemoglobin A1c value between 5.7% an d 6.4% is consist ent withprediabetes and should be confi rmed with a follow-u p test. For someo ne with known diab etes, a value <7%indicates that their diabetes is well controlled . W5fifqylqh shou ld be individualized based on duration [...] to interpret this result as normal/abnormal . TRAA (test code = FASTING:YES TARA) FASTING: YES RAC (test code = Performing RAC) Organization Information: Site ID: A Name: [facility] Address: [address] [place] [address] Director: Bandar Martinez Lab Interpretation Abnormal (test code = 69156-2) [facility] CenterThyroid stimulating [id number] 19:28:00 Test Item Value Reference Range Interpretation [...] = RAC) Organization Information: Site ID: [facility] Name: [facility] Address: [address] [place] [address] Director: Bandar Martinez [facility] CenterVitamin D 25 hydroxy [id number] 19:28:00 Test Item Value Reference Range Interpretation Comments Vitamin D, 98 ng/mL 30-100 Vitamin D Statu s 25-hydroxy (test 25-OH Vitam in D: code = 1988-05) Deficiency: < 20 ng/mLInsufficie ncy : 20 [...] please refer to http://educatio n.Q uestDiagnostics .co m/faq/BGQ900 (T his link is being provided for informational/e oksana ational purpose s only.) TARA (test code = FASTING:YES FASTING: TARA) YES RAC (test code = Performing RAC) Organization Information: Site ID: [facility] Name: [facility] Address: [address] [place] [address] Director: [place] [facility]Micro[facility] / creatinine urine [id number] 19:28:00 Test Item Value Reference Range Interpretation Comments Creatinine, 187 mg/dL 20-275 urine (mg/dL) (test code = 2161-8) Microalbumin 1.7 mg/dL See Note: Reference Range : , urine Reference Range Not (test code = established 77777-8) Microalbumin See_Comment The ADA define s /creatinine [...] RAC) Organization Information: Site ID: [facility] Name: [facility] Address: [address] [place] [phone] Director: Bandar Deniz [facility] HospitalTotal iron binding [id number] 19:28:00 Test Item Value Reference Range Interpretation [...] RAC) Organization Information: Site ID: [facility]: [facility] Address: [address] [place] [phone] Director: Bandar Martinez [facility] CenterLIPID PANEL WITH REFLEX TO DIRECT [id number] 19:28:00 Test Item Value Reference Range Interpretation [...] calculated (test <100 Desira ble code = 15452-0) range <100 m g/dL for primary prevention; <70 mg/dL for patients with C HD or diabetic patients with > or = 2 CHD risk factors. LDL-C is now calculated using the Lisanrdo-Gama calculation, which is a validated novel method providin g better accuracy than the Friedewald equation in the estimation of LDL-C. Lisandro S S et al. JOURDAN. 2013;310(29): 8467-6326 (http://educati on .[employer] .com/faq/AXK569 ) Cholesterol/HDL See_Comment [Automated ratio (test code = message] The 9830-1) system which generated this result transmitted reference range : <5.0 (calc). Th e reference range was not used to interpret this result as normal/abnormal . Non-HDL cholesterol See_Comment H For rosette ents with (test code = diabetes plus 1 04490-6) major ASCVD ris k factor, treatin g [...] Performing RAC) Organization Information: Site ID: [facility] Name: [facility] Address: [address] [place] [address] Director: Bandar Martinez Lab Interpretation Abnormal (test code = 94027-6) [facility] CenterVitamin B12 [id number] 19:28:00 Test Item Value Reference Range Interpretation Comments Vitamin B12 (test code = 1884 pg/mL 200-1100 H 2132-9) TARA (test code = TARA) FASTING:YES FASTING: YES RAC (test code = RAC) Performing Organization Information: Site ID: [facility] Name: [facility] Lab Address: [address] [place] [address] Director: Bandar Martinez Lab Interpretation (test Abnormal code = 72816-8) [facility] CenterFerritin [id number] 19:28:00 Test Item Value Reference Range Interpretation Comments Ferritin level (test 93 ng/mL 16-288 code = 2276-4) TARA (test code = TARA) FASTING:YES FASTING: YES RAC (test code = RAC) Performing Organization Information: Site ID: [facility] Name: [facility] Address: [address] [place] [phone] Director: Bandar Martinez [facility] CenterHemoglobin [id number] 19:28:00 Test Item Value Reference Interpretation Comments Range Hemoglobin A1C See_Comment H For someone solange brown (test code = known diabetes, a 4548-4) hemoglobin A1c value between 5.7% an d 6.4% is consist ent withprediabetes and should be confi rmed with a follow-u p test. For someo ne with known diab etes, a value <7%indicates that their diabetes is well controlled . A4mseixclu shou ld be individualized based on duration [...] Performing RAC) Organization Information: Site ID: [facility]: [facility] Address: [address] [place] [address] Director: Bandar Martinez Lab Interpretation Abnormal (test code = 28007-5) [facility] CenterThyroid stimulating [id number] 19:28:00 Test Item Value Reference Range Interpretation [...] = RAC) Organization Information: Site ID: [facility] Name: [facility] Address: [address] [place] [phone] Director: Bandar Martinez [facility] CenterVitamin D 25 hydroxy [id number] 19:28:00 Test Item Value Reference Range Interpretation Comments Vitamin D, 98 ng/mL 30-100 Vitamin D Statu s 25-hydroxy (test 25-OH Vitam in D: code = 1989-) Deficiency: < 20 ng/mLInsufficie ncy : 20 [...] please refer to http://educatio n.Q uestDiagnostics .co m/faq/QIR570 (T his link is being provided for informational/e oksana ational purpose s only.) TARA (test code = FASTING:YES FASTING: TARA) YES RAC (test code = Performing RAC) Organization Information: Site ID: [facility] Name: [facility] Address: [address] [place] [phone] Director: Bandar Martinez [facility] CenterMicroalbumin / creatinine urine [id number] 19:28:00 Test Item Value Reference Range Interpretation Comments Creatinine, 187 mg/dL 20-275 urine (mg/dL) (test code = 2161-8) Microalbumin 1.7 mg/dL See Note: Reference Range : , urine Reference Range Not (test code = established 33851-9) Microalbumin See_Comment The ADA define s /creatinine [...] patient to bewi thin a diagnostic mireya chandrakant. [Automated mess age] The system which ge nerated this result tra nsmitted reference range : <30 mcg/mg creat. T he reference range was not used to interpr et this result as normal/abnormal . TARA (test FASTING:YES code = TARA) FASTING: YES RAC (test Performing code = RAC) Organization Information: Site ID: [facility] Name: [facility] Lab Address: [address] [place] [address] Director: [facility] iron binding [id number] 19:28:00 Test Item Value Reference Range Interpretation [...] Performing RAC) Organization Information: Site ID: [facility] Name: [facility] Lab Address: [address] [place] [phone] Director: Bandar NairBarnesville HospitalLIPID PANEL WITH REFLEX TO DIRECT [id number] 19:28:00 Test Item Value Reference Range Interpretation [...] calculated (test <100 Desira ble code = 17587-2) range <100 m g/dL for primary prevention; <70 mg/dL for patients with C HD or diabetic patients with > or = 2 CHD risk factors. LDL-C is now calculated using the Angella calculation, which is a validated novel method providin g better accuracy than the Friedewald equation in the estimation of LDL-C. Lisandro S S et al. JOURDAN. 2013;310(19): 4461-3088 (http://educati on .[employer] .com/faq/IWZ793 ) Cholesterol/HDL See_Comment [Automated ratio (test code = message] The 9830-1) system which generated this result transmitted reference range : <5.0 (calc). Th e reference range was not used to interpret this result as normal/abnormal . Non-HDL cholesterol See_Comment H For rosette ents with (test code = diabetes plus 1 09444-5) major ASCVD ris k factor, treatin g [...] RAC) Organization Information: Site ID: [facility] Name: [facility] Address: [address] [place] [phone] Director: Bandar Martinez Lab Interpretation Abnormal (test code = 69588-0) [facility] [id number] 03:50:00 Test Item Value Reference Interpretation Comments [...] n. EGFR Non-Afr. See_Comment [Automated me ssage] Bolivian (test code The syst em which = 2775) generated this result transmit shaun reference range : > OR = 60 mL/min/1.73m2. The reference range was not used to interpret this result as normal/abnormal . EGFR See_Comment [Automated mes elijah] Bolivian (test code The syst em which = 2774) generated this result transmit shaun reference range : > OR = 60 mL/min/1.73m2. The reference range was not used to interpret this result as normal/abnormal . BUN/creatinine NOT APPLICABLE See_Comment [Automated message] ratio (test code = The [employer] which 3097-3) generated this result transmit shaun reference range : 6 - 22 (calc). The reference range was not used to interpret this result as normal/abnormal . Sodium (test code = 141 mmol/L 473-417 7807-2) Potassium (test 4.6 mmol/L 3.5-5.3 code = 2823-3) Chloride (test code 104 mmol/L 98-110 = 2075-0) CO2 (test code = 30 mmol/L 20-32 2027-9) Calcium (test code 9.9 mg/dL 8.6-10.4 = 34008-3) Protein (test code 7.3 g/dL 6.1-8.1 = 2885-2) Albumin, S (test 4.3 g/dL 3.6-5.1 code = 1751-7) Globulin, total See_Comment [Automated message] (test code = The system CyrusOneic h 12089-4) generated this result transmit shaun reference range : 1.9 - 3.7 g/dL (jimbo c). The reference r lily was not used to interpret this result as normal/abnormal . Albumin/globulin See_Comment [Automated message] ratio (test code = The [employer] which 4819-0) generated this result transmit shaun reference range : 1.0 - 2.5 (calc). T he reference range was not used to interpret this result as normal/abnormal . Total bilirubin 0.7 mg/dL 0.2-1.2 (test code = 1974-) Alkaline 115 U/L 37-153 phosphatase (test code = 6768-6) AST (test code = 13 U/L 10-1919-8) ALT (test code = 9 U/L -1741-6) TARA (test code = FASTING:YES TARA) FASTING: YES RAC (test code = Performing RAC) Organization Information: Site ID: [facility] Address: [address] [place] [address] Director: Bandar Martinez Lab Interpretation Abnormal (test code = 53358-1) [facility] CenterThyroid stimulating [id number] 03:50:00 Test Item Value Reference Range Interpretation [...] = RAC) Organization Information: Site ID: [facility] Name: [facility] Address: [address] [place] [phone] Director: Bandar Martinez [facility] with platelet and [id number] 03:50:00 Test Item Value Reference Range Interpretation Comments WBC (test code = See_Comment [Automated 1090-2) message] The system which generated this result transmitted reference range : 3.8 - 10.8 Thousand/uL. Th e reference range was not used to interpret this result as normal/abnormal . RBC (test code = See_Comment [Automated 119-8) message] The system which generated this result [...] RAC) Organization Information: Site ID: [facility] Address: [address] [place] [address] Director: Bandar FranksSt. [facility] HospitalHepatitis C [id number] 03:50:00 Test Item Value Reference Range Interpretation Comments Hepatitis C Ab NON-REACTIVE NON-REACTIVE (test code = 75027-8) Signal/cutoff <1.00 HCV antibody was (test code = non-reactive. 09778-6) There is no laboratory evidence of HCV infection. In m ost cases, no furth er action is required. However,if rece nt HCV exposure is suspected, a te st for HCV RNA(alyssa t code 81563) is suggested. For additional information ple ase refer tohttp://educat ion .[employer]/faq/DYY55p0 (Th is link is eleazar malik provided for informational/e oksana ational purpose s only.) TARA (test code = FASTING:YES TARA) FASTING: YES RAC (test code = Performing RAC) Organization Information: Site ID: [facility]: [facility] Address: [address] [place] [address] Director: [facility] HospitalLIPID PANEL WITH REFLEX TO DIRECT [id number] 03:50:00 Test Item Value Reference Range Interpretation Comments Cholesterol, total 191 mg/dL <200 (test code = 2093-3) HDL cholesterol 60 mg/dL See_Comment [Automated (test code = 2085-9) message ] The system which generated this result transmitted reference range : > OR = 50. The reference range was not used to interpret this result as normal/abnormal . Triglycerides (test 159 mg/dL <150 H code = 2571-8) LDL cholesterol mg/dL (calc) H Reference ra nge: calculated (test <100 Desira ble code = 68735-5) range <100 m g/dL for primary prevention; <70 mg/dL for patients with C HD or diabetic patients with > or = 2 CHD risk factors. LDL-C is now calculated using the Angella calculation, which is a validated novel method tate malik better accuracy than the Friedewald equation in the estimation of LDL-C. Lisandro Daniels S et al. JORUDAN. 2013;310(19): 4357-0310 (http://educati on [employer]/faq/PDS355 ) Cholesterol/HDL See_Comment [Automated ratio (test code = message] The 9830-1) system which generated this result transmitted reference range : <5.0 (calc). Th e reference range was not used to interpret this result as normal/abnormal . Non-HDL cholesterol See_Comment H For rosette ents with (test code = diabetes plus 1 67621-4) major ASCVD ris k factor, treatin g [...] RAC) Organization Information: Site ID: [facility] Name: [facility] Address: [address] [place] [phone] Director: Bandar Martinez Lab Interpretation Abnormal (test code = 50947-4) [facility] CenterURINALYSIS, COMPLETE, WITH REFLEX TO [id number] 03:50:00 Test Item Value Reference Range Interpretation Comments Color, UA (test YELLOW YELLOW code = 5778-6) Appearance (test CLEAR CLEAR code = 5767-9) Specific gravity, 1.001-1.035 urine (test code = 5811-5) pH, urine (test 5.0-8.0 code = 5803-2) Glucose, urine NEGATIVE NEGATIVE (test code = 00068-8) Bilirubin, UA NEGATIVE NEGATIVE (test code = 5770-3) Ketones, UA (test NEGATIVE NEGATIVE code = 2514-8) Occult blood, NEGATIVE NEGATIVE urine (test code = 5794-3) Protein, UA (test NEGATIVE NEGATIVE code = 37027-6) Nitrite, UA (test NEGATIVE NEGATIVE code = [...] (test NONE SEEN See_Comment [Automated code = 33930-2) message] The system which generated this result transmit shaun reference range : < OR = 2 /HPF. Th e reference range was not used to interpret this result as normal/abnormal . Squamous NONE SEEN See_Comment [Automated epithelial cells, message] T he UA (test code = system which 66637-8) generated this result transmit shaun reference range [...] RAC) Organization Information: Site ID: [facility] Address: [address] [place] [address] Director: Bandar Martinez [facility] CenterComprehensive metabolic [id number] 03:50:00 Test Item Value Reference Interpretation Comments [...] n. EGFR Non-Afr. See_Comment [Automated me ssage] Bolivian (test code The syst em which = 7111) generated this result transmit shaun reference range : > OR = 60 mL/min/1.73m2. The reference range was not used to interpret this result as normal/abnormal . EGFR See_Comment [Automated mes elijah] Bolivian (test code The syst em which = 7526) generated this result transmit shaun reference range [...] . Sodium (test code = 141 mmol/L 235-766 5192-2) Potassium (test 4.6 mmol/L 3.5-5.3 code = 2823-3) Chloride (test code 104 mmol/L 98-110 = 2075-0) CO2 (test code = 30 mmol/L 20-32 8-9) Calcium (test code 9.9 mg/dL 8.6-10.4 = 00943-8) Protein (test code 7.3 g/dL 6.1-8.1 = 2885-2) Albumin, S (test 4.3 g/dL 3.6-5.1 code = 1751-7) Globulin, total See_Comment [Automated message] (test code = The system v2tel h 24852-0) generated this result transmit shaun reference range : 1.9 - 3.7 g/dL (jimbo c). The reference r lily was not used to interpret this result as normal/abnormal . Albumin/globulin See_Comment [Automated message] ratio (test code = The [employer] which 1759-0) generated this result transmit shaun [...] RAC) Organization Information: Site ID: [facility] Name: [facility] Address: [address] [place] [address] Director: Bandar Martinez Lab Interpretation Abnormal (test code = 31739-4) [facility] CenterThyroid stimulating [id number] 03:50:00 Test Item Value Reference Range Interpretation [...] RAC) Organization Information: Site ID: [facility] Address: [address] [place] [address] Director: Bandar Martinez [facility] with platelet and [id number] 03:50:00 Test Item Value Reference Range Interpretation Comments WBC (test code = See_Comment [Automated 5490-2) message] The system which generated this result transmitted reference range : 3.8 - 10.8 Thousand/uL. Th e reference range was not used to interpret this result as normal/abnormal . RBC (test code = See_Comment [Automated 519-8) message] The system which generated this result [...] RAC) Organization Information: Site ID: [facility] Address: [address] [place] [address] Director: Bandar Martinez [facility] C [id number] 03:50:00 Test Item Value Reference Range Interpretation Comments Hepatitis C Ab NON-REACTIVE NON-REACTIVE (test code = 13193-2) Signal/cutoff <1.00 HCV antibody was (test code = non-reactive. 48676-6) There is no laboratory evidence of HCV infection. In m ost cases, no furth er action is required. However,if rece nt HCV exposure is suspected, a te st for HCV RNA(alyssa t code 51844) is suggested. For additional information ple ase refer tohttp://educat ion .[employer]. [employer]/faq/PIA07j6 (Th is link is bein g provided for informational/e oksana ational purpose s only.) TARA (test code = FASTING:YES TARA) FASTING: YES RAC (test code = Performing RAC) Organization Information: Site ID: [facility]: [facility] Address: [address] [place] [address] Director: Bandar Park [facility] HospitalLIPID PANEL WITH REFLEX TO DIRECT [id number] 03:50:00 Test Item Value Reference Range Interpretation Comments Cholesterol, total 191 mg/dL <200 (test code = 2093-3) HDL cholesterol 60 mg/dL See_Comment [Automated (test code = 2084-9) message ] The system which generated this result transmitted reference range : > OR = 50. The reference range was not used to interpret this result as normal/abnormal . Triglycerides (test 159 mg/dL <150 H code = 2571-8) LDL cholesterol mg/dL (calc) H Reference ra nge: calculated (test <100 Desira ble code = 26296-1) range <100 m g/dL for primary prevention; <70 mg/dL for patients with C HD or diabetic patients with > or = 2 CHD risk factors. LDL-C is now calculated using the Lisandro-Lanette calculation, which is a validated novel method providin g better accuracy than the Friedewald equation in the estimation of LDL-C. Lisandro Daniels S et al. JOURDAN. 2013;310(19): 3124-3225 (http://educati on .[employer] .[employer]/faq/IRR969 ) Cholesterol/HDL See_Comment [Automated ratio (test code = message] The 9830-1) system which generated this result transmitted reference range : <5.0 (calc). Th e reference range was not used to interpret this result as normal/abnormal . Non-HDL cholesterol See_Comment H For rosette ents with (test code = diabetes plus 1 18707-1) major ASCVD ris k factor, treatin g [...] RAC) Organization Information: Site ID: [facility] Name: [facility] Address: [address] [place] [address] Director: Bandar Martinez Lab Interpretation Abnormal (test code = 58886-9) [facility] WITH REFLEX TO [id number] 03:50:00 Test Item Value Reference Range Interpretation Comments Color, UA (test YELLOW YELLOW code = 5778-6) Appearance (test CLEAR CLEAR code = 5767-9) Specific gravity, 1.001-1.035 urine (test code = 5811-5) pH, urine (test 5.0-8.0 code = 5803-2) Glucose, urine NEGATIVE NEGATIVE (test code = 01544-6) Bilirubin, UA NEGATIVE NEGATIVE (test code = 5770-3) Ketones, UA (test NEGATIVE NEGATIVE code = 2514-8) Occult blood, NEGATIVE NEGATIVE urine (test code = 5794-3) Protein, UA (test NEGATIVE NEGATIVE code = 97894-1) Nitrite, UA (test NEGATIVE NEGATIVE code = [...] (test NONE SEEN See_Comment [Automated code = 21695-6) message] The system which generated this result transmit shaun reference range : < OR = 2 /HPF. Th e reference range was not used to interpret this result as normal/abnormal . Squamous NONE SEEN See_Comment [Automated epithelial cells, message] T he UA (test code = system which 29981-9) generated this result transmit shaun reference range [...] RAC) Organization Information: Site ID: [facility] Address: [address] [place] [address] Director: Bandar HernandezAultman HospitalHepatibaptist memorial hospital C [id number] 03:50:00 Test Item Value Reference Range Interpretation Comments Hepatitis C Ab NON-REACTIVE NON-REACTIVE (test code = 88057-3) Signal/cutoff See_Comment HCV antibody was (test code = non-reactive. 32995-6) There is no laboratory evidence of HCV infection. In m ost cases, no furth er action is required. However,if rece nt HCV exposure is suspected, a te st for HCV RNA(alyssa t code 79174) is suggested. For additional information ple ase refer tohttp://educat ion .[employer]. Shnergle/faq/WXC40l5 (Th is link is eleazar malik provided for informational/e oksana ational purpose s only.) [Automat ed message] The system which generated this result transmit shaun reference range : <=1.00. The reference range was not used to interpret this result as normal/abnormal . TARA (test code = FASTING:YES TARA) FASTING: YES RAC (test code = Performing RAC) Organization Information: Site ID: PANTERA Name: [facility] Address: [address] [place] [address] Director: Bandar FranksSt. David's Georgetown HospitalURINALYSIS, COMPLETE, WITH REFLEX TO [id number] 03:50:00 Test Item Value Reference Range Interpretation Comments Color, UA (test YELLOW YELLOW code = 5778-6) Appearance (test CLEAR CLEAR code = 5767-9) Specific gravity, 1.001-1.035 urine (test code = 5811-5) pH, urine (test 5-8 code = 5803-2) Glucose, urine NEGATIVE NEGATIVE (test code = 22452-6) Bilirubin, UA NEGATIVE NEGATIVE (test code = 5770-3) Ketones, UA (test NEGATIVE NEGATIVE code = 2514-8) Occult blood, NEGATIVE NEGATIVE urine (test code = 5794-3) Protein, UA (test NEGATIVE NEGATIVE code = 83738-0) Nitrite, UA (test NEGATIVE NEGATIVE code = [...] (test NONE SEEN See_Comment [Automated code = 75926-5) message] The system which generated this result transmit shaun reference range : < OR = 2 /HPF. Th e reference range was not used to interpret this result as normal/abnormal . Squamous NONE SEEN See_Comment [Automated epithelial cells, message] T he UA (test code = system which 05872-2) generated this result transmit shaun reference range [...] RAC) Organization Information: Site ID: RGA Name: [facility] Address: [address] [place] [address] Director: Bandar Martinez [facility] glycosylated hemoglobin (Hb A1C)2021-04-16 17:28:00 Test Item Value Reference Range Interpretation Comments POC Hemoglobin A1C (test code = 5.9 % 6203503) [facility] glycosylated hemoglobin (Hb A1C)2021-04-16 17:28:00 Test Item Value Reference Range Interpretation Comments POC Hemoglobin A1C (test code = 5.9 % 1276223) [facility] glycosylated hemoglobin (Hb A1C)2021-04-16 17:28:00 Test Item Value Reference Range Interpretation Comments POC Hemoglobin A1C (test code = 5.9 % 2521971) [facility] [id number] 07:47:00 Test Item Value Reference Range Interpretation Comments Vitamin B12 (test code = 1484 pg/mL 200-1100 H 2132-9) TARA (test code = TARA) FASTING:YES FASTING: YES RAC (test code = RAC) Performing Organization Information: Site ID: [facility] Name: [facility] Address: [address] [place] [phone] Director: Bandar Martinez Lab Interpretation (test Abnormal code = 25404-6) [facility] [id number] 07:47:00 Test Item Value Reference Interpretation Comments Range Hemoglobin A1C See_Comment H For someone w stephanie (test code = known diabetes, a 4548-4) hemoglobin A1c value between 5.7% an d 6.4% is consist ent withprediabetes and should be confi rmed with a follow-u p test. For someo ne with known diab etes, a value <7%indicates that their diabetes is well controlled . P2fzatmfxy shou ld be individualized based on duration [...] Performing RAC) Organization Information: Site ID: [facility] Address: [address] [place] [address] Director: Bandar Martinez Lab Interpretation Abnormal (test code = 87897-3) [facility]T4, [id number] 07:47:00 Test Item Value Reference Range Interpretation Comments T4, free (test code 1.0 ng/dL 0.8-1.8 = 3024-7) TARA (test code = FASTING:YES FASTING: YES TARA) RAC (test code = Performing Organization RAC) Information: Site ID: [facility] Name: [facility] Address: [address] [place] [phone] Director: Bandar Martinez [facility] Center[facility]inalysis, automated with [id number] 07:47:00 Test Item Value Reference Range Interpretation Comments Color, UA (test YELLOW YELLOW code = 5778-6) Appearance (test CLEAR CLEAR code = 5767-9) Specific gravity, 1.001-1.035 urine (test code = 5811-5) pH, urine (test 5.0-8.0 code = 5803-2) Glucose, urine NEGATIVE NEGATIVE (test code = 05097-7) Bilirubin, UA NEGATIVE NEGATIVE (test code = 5770-3) Ketones, UA (test NEGATIVE NEGATIVE code = 2514-8) Occult blood, NEGATIVE NEGATIVE urine (test code = 5794-3) Protein, UA (test NEGATIVE NEGATIVE code = 67976-6) Nitrite, UA (test NEGATIVE NEGATIVE code = [...] (test NONE SEEN See_Comment [Automated code = 96486-6) message] The system which generated this result transmit shaun reference range : < OR = 2 /HPF. Th e reference range was not used to interpret this result as normal/abnormal . Squamous NONE SEEN See_Comment [Automated epithelial cells, message] T he UA (test code = system which 86894-8) generated this result transmit shaun reference range [...] RAC) Organization Information: Site ID: RGA Name: [facility] Address: [address] [place] [address] Director: Bandar Martinez [facility] Center[facility]it[facility] D 25 hydroxy [id number] 07:47:00 Test Item Value Reference Range Interpretation [...] please refer to http://educatio n.Q uestDiagnostics .co m/faq/WIN661 (T his link is being provided for informational/e oksana ational purpose s only.) TARA (test code = FASTING:YES FASTING: TARA) YES RAC (test code = Performing RAC) Organization Information: Site ID: RONELA Name: [facility] Address: [address] [place] [address] Director: Bandar Martinez [facility] B12 [id number] 07:47:00 Test Item Value Reference Range Interpretation Comments Vitamin B12 (test code = 1484 pg/mL 200-1100 H 2132-9) TARA (test code = TARA) FASTING:YES FASTING: YES RAC (test code = RAC) Performing Organization Information: Site ID: A Name: [facility] Address: [address] [place] [address] Director: Bandar Martinez Lab Interpretation (test Abnormal code = 71426-5) [facility] Center[facility] [id number] 07:47:00 Test Item Value Reference Interpretation Comments Range Hemoglobin A1C See_Comment H For someone w ithout (test code = known diabetes, a 4548-4) hemoglobin A1c value between 5.7% an d 6.4% is consist ent withprediabetes and should be confi rmed with a follow-u p test. For someo ne with known diab etes, a value <7%indicates that their diabetes is well controlled . A3tcnsmmcq shou ld be individualized based on duration [...] = Performing RAC) Organization Information: Site ID: A [facility] Address: [address] [place] [address] Director: Bandar Martinez Lab Interpretation Abnormal (test code = 19264-7) [facility]4, [id number] 07:47:00 Test Item Value Reference Range Interpretation Comments T4, free (test code 1.0 ng/dL 0.8-1.8 = 3024-7) TARA (test code = FASTING:YES FASTING: YES TARA) RAC (test code = Performing Organization RAC) Information: Site ID: A Name: [facility] Address: [address] [place], [place] [address] Director: Bandar Martinez [facility] CenterUrinalysis, automated with [id number] 07:47:00 Test Item Value Reference Range Interpretation Comments Color, UA (test YELLOW YELLOW code = 5778-6) Appearance (test CLEAR CLEAR code = 5767-9) Specific gravity, 1.001-1.035 urine (test code = 5811-5) pH, urine (test 5.0-8.0 code = 5803-2) Glucose, urine NEGATIVE NEGATIVE (test code = 69608-9) Bilirubin, UA NEGATIVE NEGATIVE (test code = 5770-3) Ketones, UA (test NEGATIVE NEGATIVE code = 2514-8) Occult blood, NEGATIVE NEGATIVE urine (test code = 5794-3) Protein, UA (test NEGATIVE NEGATIVE code = 32414-0) Nitrite, UA (test NEGATIVE NEGATIVE code = [...] (test NONE SEEN See_Comment [Automated code = 43128-7) message] The system which generated this result transmit shaun reference range : < OR = 2 /HPF. Th e reference range was not used to interpret this result as normal/abnormal . Squamous NONE SEEN See_Comment [Automated epithelial cells, message] T he UA (test code = system which 22230-9) generated this result transmit shaun reference range [...] RAC) Organization Information: Site ID: RGA Name: [facility] Address: [address] [place] [address] Director: [facility] 25 hydroxy [id number] 07:47:00 Test Item Value Reference Range Interpretation Comments Vitamin D, 66 ng/mL 30-100 Vitamin D Statu s 25-hydroxy (test 25-OH Vitam in D: code = 1989-3) Deficiency: < 20 ng/mLInsufficie ncy : 20 [...] please refer to http://educatio n.Q uestDiagnostics .co m/faq/CON812 (T his link is being provided for informational/e oksana ational purpose s only.) TARA (test code = FASTING:YES FASTING: TARA) YES RAC (test code = Performing RAC) Organization Information: Site ID: A Name: [facility] Address: [address] [place] [address] Director: [facility] HospitalGLUBED2020-06-08 20:34:00 Test Item Value Reference Range Interpretation Comments GLUBED (test code = GLUBED) 108 mg/dL 70-110 N [id number] 20:34:00 Test Item Value Reference Range Interpretation Comments GLUBED (test code = GLUBED) 121 mg/dL 70-110 H [id number] 20:34:00 Test Item Value Reference Range Interpretation Comments GLUBED (test code = GLUBED) 98 mg/dL 70-110 N [id number] 20:34:00 Test Item Value Reference Range Interpretation Comments GLUBED (test code = GLUBED) 132 mg/dL 70-110 H [id number] 20:34:00 Test Item Value Reference Range Interpretation Comments GLUBED (test code = GLUBED) 144 mg/dL 70-110 H [id number] 20:34:00 Test Item Value Reference Range Interpretation Comments GLUBED (test code = GLUBED) 153 mg/dL 70-110 H SARS coronavirus 2 RNA [Presence] in Respiratory specimen by JEANIE with probe [id number] 22:03:12 Test Item Value Reference Range Interpretation Comments SARS coronavirus 2 RNA Not detected Not-Detected [Presence] in Respiratory specimen by JEANIE with probe detection (test code = 40161-7) [facility] coronavirus 2 RNA [Presence] in Respiratory specimen by JEANIE with probe [id number] 06:14:29 Test Item Value Reference Range Interpretation Comments SARS coronavirus 2 RNA Not detected Not-Detected [Presence] in Respiratory specimen by JEANIE with probe detection (test code = 48431-0) [facility] coronavirus 2 RNA [Presence] in Respiratory specimen by JEANIE with probe [id number] 18:10:36 Test Item Value Reference Range Interpretation Comments SARS coronavirus 2 RNA [Presence] in Detected Not-Detected Respiratory specimen by JEANIE with probe detection (test code = 76661-2) [facility] coronavirus 2 RNA [Presence] in Respiratory specimen by JEANIE with probe [id number] 18:29:54 Test Item Value Reference Range Interpretation Comments SARS coronavirus 2 RNA [Presence] in Detected Not-Detected Respiratory specimen by JEANIE with probe detection (test code = 42692-0) [facility] coronavirus 2 RNA [Presence] in Respiratory specimen by JEANIE with probe [id number] 18:17:33 Test Item Value Reference Range Interpretation Comments SARS coronavirus 2 RNA Not detected Not-Detected [Presence] in Respiratory specimen by JEANIE with probe detection (test code = 59943-1) [place] coronavirus 2 RNA [Presence] in Respiratory specimen by JEANIE with probe [id number] 15:34:35 Test Item Value Reference Range Interpretation Comments SARS coronavirus 2 RNA [Presence] in Detected Not-Detected Respiratory specimen by JEANIE with probe detection (test code = 18442-3) SAHARA SANCHEZ REACTIVE [id number] 20:26:00 Test Item Value Reference Range Interpretation Comments C REACTIVE PROTEIN 23.2 mg/dL 0.0-0.9 H DILUTION FACTOR 1:5 (test code = CRP) PLEASE FATOU Alvares NOTE OF NEW CRP REFEREN CE RANGE [id number] 20:26:00 Test Item Value Reference Range Interpretation Comments INTERLEUKIN-6 82.8 pg/mL 0.0-15.5 A Results for th is test are (test code = for research pu rposes only INTERL6) by [facility] anufacturer. The performance characteristics ofthis product have no t been established. Re sults should notbe used as a diagnostic procedure witho ut confirmation of the diagnosis by another [facility] established diagnosticprodu ct or procedure.Perfo rmed At: [facility] [address] [place], [place] [id number] ra Steve BARTON Ph:[phone] ST PERFORMED AT [facility] [address] [place] [address] SARS coronavirus 2 RNA [Presence] in Respiratory specimen by JEANIE with probe [id number] 14:10:15 Test Item Value Reference Range Interpretation Comments SARS coronavirus 2 RNA Not detected Not-Detected [Presence] in Respiratory specimen by JEANIE with probe detection (test code = 54187-6) SAHARA BECKGLUBED2020-04-26 20:01:00 Test Item Value Reference Range Interpretation Comments GLUBED (test code = GLUBED) 109 mg/dL 70-110 N [id number] 08:00:00 Test Item Value Reference Range Interpretation Comments GLUBED (test code = GLUBED) 110 mg/dL 70-110 N [id number] 07:59:00 Test Item Value Reference Range Interpretation Comments GLUBED (test code = GLUBED) 120 mg/dL 70-110 H [id number] 07:58:00 Test Item Value Reference Range Interpretation Comments GLUBED (test code = GLUBED) 110 mg/dL 70-110 N [id number] 07:58:00 Test Item Value Reference Range Interpretation Comments GLUBED (test code = GLUBED) 111 mg/dL 70-110 H [id number] 07:58:00 Test Item Value Reference Range Interpretation Comments GLUBED (test code = GLUBED) 103 mg/dL 70-110 N [id number] 07:58:00 Test Item Value Reference Range Interpretation Comments GLUBED (test code = GLUBED) 117 mg/dL 70-110 H [id number] 07:58:00 Test Item Value Reference Range Interpretation Comments GLUBED (test code = GLUBED) 122 mg/dL 70-110 H [id number] 07:58:00 Test Item Value Reference Range Interpretation Comments GLUBED (test code = GLUBED) 156 mg/dL 70-110 H [id number] 07:57:00 Test Item Value Reference Range Interpretation Comments GLUBED (test code = GLUBED) 156 mg/dL 70-110 H [id number] 07:57:00 Test Item Value Reference Range Interpretation Comments GLUBED (test code = GLUBED) 135 mg/dL 70-110 H [id number] 07:57:00 Test Item Value Reference Range Interpretation Comments GLUBED (test code = GLUBED) 104 mg/dL 70-110 N C REACTIVE [id number] 12:26:00 Test Item Value Reference Range Interpretation Comments C REACTIVE PROTEIN 23.2 mg/dL 0.0-0.9 H DILUTION FACTOR 1:5 (test code = CRP) PLEASE FATOU Alvares NOTE OF NEW CRP REFEREN CE RANGE [id number] 12:26:00 Test Item Value Reference Range Interpretation Comments INTERLEUKIN-6 (test code = INTERL6) C REACTIVE [id number] 12:25:00 Test Item Value Reference Range Interpretation Comments C REACTIVE PROTEIN 23.2 mg/dL 0.0-0.9 H PLEASE Randy MCCOY NOTE OF (test code = CRP) NEW CRP RE FERENCE RANGE [id number] 12:25:00 Test Item Value Reference Range Interpretation Comments INTERLEUKIN-6 (test code = INTERL6) LACTIC DEHYDROGENASE(LDH)2019-07-22 12:17:00 Test Item Value Reference Range Interpretation Comments LACTIC DEHYDROGENASE(LDH) (test 402 Units/L 81-234 H code = LDH) [id number] 12:17:00 Test Item Value Reference Range Interpretation Comments FERRITIN (test code = LINDA) 798 ng/mL 11.0-306.8 H D-DIMER/[id number] 11:30:00 Test Item Value Reference Range Interpretation Comments D-DIMER/FSP (test 904 ng/mL 200.0-230.0 H Pe r substation design draftsperson code = DDIMER) recommendatio n, the CUT [...] test res ult. - XR CHEST 1 [id number] 08:20:00 FAX: Lai Martinez MD [phone] [place]: St: [place] FAX: Olena Bowers MD [phone] --------- Name: HARLEEN ALICEA [facility] : 1955 Age/S: 64/F [address] [facility] Unit #: [id number] Loc: [address] [place], [place]: [place] [address] Acct: [id number] Dis Date: Status: ADM IN PHONE #: [phone] Exam Date: 07/22/2019814 FAX #: [phone] Reason: sob EXAMS: CPT CODE: [id number] XR CHEST 1 V 73391 EXAM: - XR CHEST 1 V Location [...] MD; Olena Bowers MD Technologist: NEFTALY BOOKER Trnnhrd Date/Time/By: 07/22/2019 (08) : By: [email or web address] PAGE 1 Signed Report FAX: Lai Martinez MD [phone] [place]: St: [place] FAX: Olena Bowers MD [phone] Name: HARLEEN ALICEA [facility] : 1955 Age/S: 64/F [address] [facility] Unit #: [id number] Loc: [address] [place]: [place] [address] Acct: [id number] Dis Date: Status: ADM IN PHONE #: [phone] Exam Date: 07/22/2019814 FAX #: [phone] Reason: sob EXAMS: CPT CODE: [id number] XR CHEST 1 V 06564 (Continued) Orig Print D/T: S: 07/22/2019 (5004) PAGE 2 Signed ReportCOMPREHENSIVE METABOLIC [id number] 06:28:00 Test Item Value Reference Range Interpretation [...] 94 Units/L 50.0-136.0 N code = ALKP) [id number] 06:28:00 Test Item Value Reference Range Interpretation Comments MAGNESIUM (test code = MAG) 1.7 mg/dl 1.8-2.4 L CBC W/AUTO [id number] 06:11:00 Test Item Value Reference Range Interpretation [...] BA#) 0.0 K/mm3 0.0-0.2 N COMPREHENSIVE METABOLIC [id number] 06:35:00 Test Item Value Reference Range Interpretation [...] 97 Units/L 50.0-136.0 N code = ALKP) [id number] 06:35:00 Test Item Value Reference Range Interpretation Comments MAGNESIUM (test code = MAG) 1.6 mg/dl 1.8-2.4 L CBC W/AUTO [id number] 06:03:00 Test Item Value Reference Range Interpretation [...] 0.0-0.2 N UA RFLX MICR CULT IF [id number] 13:27:00 Test Item Value Reference Range Interpretation [...] Description: CLEAN CATCHUA RFLX MICR CULT IF [id number] 13:15:00 Test Item Value Reference Range Interpretation [...] > 100.4 FSpecimen Description: CLEAN CATCHBASIC METABOLIC [id number] 16:58:00 Test Item Value Reference Range Interpretation [...] CA) 8.5 mg/dl 8.0-10.5 N CBC W/AUTO [id number] 16:57:00 Test Item Value Reference Range Interpretation [...] K/mm3 0.0-0.2 N - XR CHEST 1 [id number] 14:00:00 FAX: Olena Bowers MD [phone] [place]: St: ADM Name: HARLEEN ALICEA [facility] : 1955 Age/S: 64/F [address] [facility] Unit #: [id number] Loc: [address] [place], [place]: [place] [address] Acct: [id number] Dis Date: Status: ADM IN PHONE #: [phone] Exam Date: 07/19/2019 [facility] FAX#: [phone] Reason: SOB EXAMS: CPT CODE: [id number] XR CHEST 1 V 33523 Dictation location: U19. CHEST, FRONTAL VIEW HISTORY: SOB FINDINGS: Since 07/17/19, there are worsening bilateral pulmonary opacities. The heart size is normal. Aorta is partially calcified. Anterior cervical fusion. Degenerative changes affect the thoracic spine. IMPRESSION: Worsening bilateral opacities related to multifocalpneumonia including viral. at 1400 Reported and signed by: Alexander Painter M.D. CC: Olena Bowers MD Technologist: TETO RUSSELL Trnscrd Date/Time/By: 07/19/2019 (1400) : By: [email or web address] PAGE 1 Signed Report FAX: Olena Bowers MD [phone] [place]: St: ADM Name: HARLEEN ALICEA [facility] : 1955 Age/S: 64/F [address] [facility] Unit #: [id number] Loc: [address] [place] [address] [place]: [place] [address] Acct: [id number] Dis Date: Status: ADM IN PHONE #: [phone] Exam Date: 07/19/2019 1359 FAX #: [phone]: SOB EXAMS: CPT CODE: [id number] XR CHEST 1 V 89720 (Continued) Orig Print D/T: S: 07/19/2019(7973) PAGE 2 Signed [id number] 18:01:00 Test Item Value Reference Range Interpretation Comments UEOQO38Ragpimpm POSITIVE Negative A Note: this e ntry is for (test code = TRACKING purpos es only TKFXN33Meprzrrn) and the alyssa twas done outside [facility], the performing entity josé in spec [facility] comments.Note: this entry is for TRACKING purposes only and the te stwas done outside [facility], the performing entity isfound in [facility] comments. The test was performed at: [facility]: 07/12/19Patient's account number from transferring facility:[id number] patient's current lab results are: Positivecalled to nurse sarkis lazo on 3E with bqjdcbobPMIRP-cbn-olwHWR W/MANUAL DIFF 2019-07-17 06:15:00 Test Item Value [...] code APPEAR LARGE = PLTMORPH) COMPREHENSIVE METABOLIC [id number] 04:41:00 Test Item Value Reference Range Interpretation [...] 94 Units/L 50.0-136.0 N code = ALKP) [id number] 04:41:00 Test Item Value Reference Range Interpretation Comments TROPONIN-I (test <0.02 NG/ML 0.00-0.06 N REFERENCE R LILY code = TROPI) TROPONIN I HEA LTHY INDIVIDUALS: <0 .06 ng/mL R/O ISCHE JORGE: 0.07 - 0.60 ng/ mL CUT-OFF RANGE F OR AMI: 0.60 - 1.5 ng/m L CBC W/MANUAL [id number] 04:25:00 Test Item Value Reference Range Interpretation [...] code = LYMPH) % 20-40 CBC W/MANUAL [id number] 04:24:00 Test Item Value Reference Range Interpretation [...] LYMPH) % 20-40 - XR CHEST 1 [id number] 04:23:00 FAX: Alma Grossman MD [place]: [place] [address]: REG Name: HARLEEN ALICEA [facility] : 1955 Age/S: 64/F [address] [facility] Unit #: [id number] Loc: E[address] [place], [place]: [place] [address] Acct: [id number] Dis Date: Status: REG ER PHONE #: [phone] Exam Date: 07/17/2019421 FAX #: [phone] Reason: SOB EXAMS: CPT CODE: [id number] XR CHEST 1 V 92508 DICTATION LOCATION: 8 HISTORY: Female, 64 years of age with dyspnea on exertion EXAM: CHEST X-RAY, ONE VIEW COMPARISON: 06/09/2009 COMMENT: Frontal view of the chest is provided. There are patchy interstitial opacities in both lungs, mostprominent in lower lobes. No behzad lobar consolidation or significant effusion. Cardiac silhouette is enlarged and calcified plaque noted in aorta. No acute bony abnormalities. IMPRESSION: Multifocal interstitial pneumonia. at 0423 Reported and signed by: Nieves Cook M.D. CC: Alma Guan MD Technologist: RT Jamar(Ada) Trnconnie Date/Time/By: 07/17/2019 (0423) : By: RubenCLW PAGE 1 Signed Report FAX: Alma Grossman MD [place]: St: REG -- Name: AHRLEEN ALICEA [facility] : 1955 Age/S: 64/F [address] [facility] Unit #: [id number] Loc: E.[address] [place], [place]: [place] [address] Acct: [id number] Dis Date: Status: REG ER PHONE #: [phone] Exam Date: 07/17/2019421 FAX #: [phone] Reason: SOB EXAMS: CPT CODE: [id number] XR CHEST 1 V 00398 (Continued) Orig Print D/T: S: 07/17/2019 (0426) PAGE 2 Signed ReportCARDIAC [id number] 21:59:00 Test Item Value Reference Range Interpretation Comments Total CK (test code = Total CK) 93 12-191 [facility] [id number] 21:59:00 Test Item Value Reference Range Interpretation Comments Troponin-I (test code 0.03 See_Comment [Auto mated message] The = Troponin-I) system which g enerated this result transmit shaun reference range : <=0.40. The reference r lily was not used to interpr et this result as jackeline l/abnormal. [facility] fav.or.it [id number] 21:59:00 Test Item Value Reference Range Interpretation Comments Glucose Lvl (test code = Glucose Lvl) 142 70-99 [facility] fav.or.it [id number] 21:59:00 Test Item Value Reference Range Interpretation Comments BUN (test code = BUN) 13 7-22 [facility] fav[facility]or[facility]it [id number] 21:59:00 Test Item Value Reference Range Interpretation Comments Creatinine Lvl (test code = Creatinine 0.79 0.50-1.40 Lvl) [facility] [id number] 21:59:00 Test Item Value Reference Range Interpretation Comments Sodium Lvl (test code = Sodium Lvl) 131 135-145 [facility] [id number] 21:59:00 Test Item Value Reference Range Interpretation Comments Potassium Lvl (test code = Potassium 3.4 3.5-5.1 Lvl) [facility] [id number] 21:59:00 Test Item Value Reference Range Interpretation Comments Chloride Lvl (test code = Chloride Lvl) 98 95-109 [facility] fav[facility]it [id number] 21:59:00 Test Item Value Reference Range Interpretation Comments CO2 (test code = CO2) 33 24-32 [facility] [id number] 21:59:00 Test Item Value Reference Range Interpretation Comments Calcium Lvl (test code = Calcium Lvl) 9.3 8.5-10.5 [facility] fav[facility]or[facility]it [id number] 21:59:00 Test Item Value Reference Range Interpretation Comments Total Protein (test code = Total 8.1 6.4-8.4 Protein) [facility] [employer]2020-01-11 21:59:00 Test Item Value Reference Range Interpretation Comments Albumin Lvl (test code = Albumin Lvl) 3.6 3.5-5.0 [facility] [id number] 21:59:00 Test Item Value Reference Range Interpretation Comments ALT (test code = ALT) 18 See_Comment [Auto mated message] The system which ge nerated this result transmit shaun reference range : <=65. The reference range was not used to interpr et this result as jackeline l/abnormal. [facility] [id number] 21:59:00 Test Item Value Reference Range Interpretation Comments AST (test code = AST) 21 See_Comment [Auto mated message] The system which ge nerated this result transmit shaun reference range : <=37. The reference range was not used to interpr et this result as jackeline l/abnormal. [facility] [id number] 21:59:00 Test Item Value Reference Range Interpretation Comments Alk Phos (test code = Alk Phos) 95 39-136 [facility] [id number] 21:59:00 Test Item Value Reference Range Interpretation Comments Bili Total (test code = Bili Total) 0.5 0.2-1.3 [facility] [id number] 21:59:00 Test Item Value Reference Range Interpretation Comments AGAP (test code = AGAP) 3.4 10.0-20.0 [facility] [id number] 21:59:00 Test Item Value Reference Range Interpretation Comments B/C Ratio (test code = B/C Ratio) 16 1 6-25 [facility] [id number] 21:59:00 Test Item Value Reference Range Interpretation Comments Globulin (test code = Globulin) 4.5 2.7-4.2 [facility] [id number] 21:59:00 Test Item Value Reference Range Interpretation Comments A/G Ratio (test code = A/G Ratio) 0.8 1 0.7-1.6 [facility] [id number] 21:59:00 Test Item Value Reference Range Interpretation Comments eGFR (test code = eGFR) 78 [facility] [id number] 21:59:00 Test Item Value Reference Range Interpretation Comments Lipase Lvl (test code = Lipase Lvl) 112 73-393 [facility] [id number] 21:59:00 Test Item Value Reference Range Interpretation Comments Magnesium Lvl (test code = Magnesium 1.6 1.8-2.4 Lvl) [id number] 21:59:00 Test Item Value Reference Range Interpretation Comments WBC (test code = WBC) 7.6 3.7-10.4 [facility] [id number] 21:59:00 Test Item Value Reference Range Interpretation Comments RBC (test code = RBC) 4.45 4.20-5.40 [facility] [id number] 21:59:00 Test Item Value Reference Range Interpretation Comments Hgb (test code = Hgb) 13.6 12.0-16.0 [facility] [id number] 21:59:00 Test Item Value Reference Range Interpretation Comments Hct (test code = Hct) 40.3 36.0-48.0 [facility] Pa[id number] 21:59:00 Test Item Value Reference Range Interpretation Comments MCV (test code = MCV) 90.6 80.0-98.0 [facility] PasoUptktnvQMJNRTFKPS4252-69-05 21:59:00 Test Item Value Reference Range Interpretation Comments MCH (test code = MCH) 30.5 pg 27.0-31.0 [facility] [id number] 21:59:00 Test Item Value Reference Range Interpretation Comments MCHC (test code = MCHC) 33.7 32.0-36.0 [facility] [id number] 21:59:00 Test Item Value Reference Range Interpretation Comments RDW (test code = RDW) 12.9 11.5-14.5 [facility] Pa[id number] 21:59:00 Test Item Value Reference Range Interpretation Comments Platelet (test code = Platelet) 192 133-450 [facility] [id number] 21:59:00 Test Item Value Reference Range Interpretation Comments MPV (test code = MPV) 9.6 7.4-10.4 [facility] [id number] 21:59:00 Test Item Value Reference Range Interpretation Comments PT (test code = PT) 13.7 s 12.0-14.7 [place] 107530-01-11 21:59:00 Test Item Value Reference Range Interpretation Comments INR (test code = INR) 1.05 1 0.85-1.17 [place] 107530-01-11 21:59:00 Test Item Value Reference Range Interpretation Comments Segs (test code = Segs) 67.6 45.0-75.0 [place] 107530-01-11 21:59:00 Test Item Value Reference Range Interpretation Comments Lymphocytes (test code = Lymphocytes) 23.6 20.0-40.0 [place] 107530-01-11 21:59:00 Test Item Value Reference Range Interpretation Comments Monocytes (test code = Monocytes) 5.8 2.0-12.0 [place] 107530-01-11 21:59:00 Test Item Value Reference Range Interpretation Comments Eosinophils (test code = 2.5 See_Comment [A utomated message] The Eosinophils) system which ge nerated this result tra nsmitted reference range : <=4.0. The reference r lily was not used to int erpret this result as normal/abnormal . [facility] [id number] 21:59:00 Test Item Value Reference Range Interpretation Comments Basophils (test code = 0.5 See_Comment [Aut omated message] The Basophils) system which ge nerated this result tra nsmitted reference range : <=1.0. The reference r lily was not used to int erpret this result as normal/abnormal . [facility] [id number] 21:59:00 Test Item Value Reference Range Interpretation Comments Neutrophils # (test code = Neutrophils 5.1 1.5-8.1 #) [facility] [id number] 21:59:00 Test Item Value Reference Range Interpretation Comments Lymphocytes # (test code = Lymphocytes 1.8 1.0-5.5 #) [place] 107530-01-11 21:59:00 Test Item Value Reference Range Interpretation Comments Monocytes # (test code 0.4 See_Comment [Aut omated message] The = Monocytes #) system which generated this result tra nsmitted reference range : <=0.8. The reference r lily was not used to int erpret this result as normal/abnormal . [place] 107530-01-11 21:59:00 Test Item Value Reference Range Interpretation Comments Eosinophils # (test code 0.2 See_Comment [A utomated message] The = Eosinophils #) system whic h generated this result tra nsmitted reference range : <=0.5. The reference r lily was not used to int erpret this result as normal/abnormal . [facility] AND [id number] 21:59:00 Test Item Value Reference Range Interpretation Comments UA Color (test code = Yellow *NA*(04/09/19 UA Color) 3:59 PM) [facility] AND [id number] 21:59:00 Test Item Value Reference Range Interpretation Comments UA Turbidity (test code = Clear (04/09/19 3:59 UA Turbidity) PM) [facility] AND [id number] 21:59:00 Test Item Value Reference Range Interpretation Comments UA Spec Grav (test code = UA Spec 1.010 1 Grav) [facility] AND [id number] 21:59:00 Test Item Value Reference Range Interpretation Comments UA pH (test code = UA pH) 6.0 1 5.0-8.0 [facility] AND [id number] 21:59:00 Test Item Value Reference Range Interpretation Comments UA Protein (test code Negative (04/09/19 3:59 = UA Protein) PM) [facility] AND [id number] 21:59:00 Test Item Value Reference Range Interpretation Comments UA Glucose (test code Negative (04/09/19 3:59 = UA Glucose) PM) [facility] AND [id number] 21:59:00 Test Item Value Reference Range Interpretation Comments UA Ketones (test code Negative *NA*(04/09/19 = UA Ketones) 3:59 PM) [facility] [id number] 21:59:00 Test Item Value Reference Range Interpretation Comments UA Bili (test code = Negative *NA*(04/09/19 UA Bili) 3:59 PM) [facility] AND [id number] 21:59:00 Test Item Value Reference Range Interpretation Comments UA Blood (test code = Trace *ABN*(04/09/19 UA Blood) 3:59 PM) [facility] [id number] 21:59:00 Test Item Value Reference Range Interpretation Comments UA Urobilinogen (test code = UA 0.2 0.1-1.0 Urobilinogen) [facility] AND [id number] 21:59:00 Test Item Value Reference Range Interpretation Comments UA Nitrite (test code Negative (04/09/19 3:59 = UA Nitrite) PM) [facility] AND [id number] 21:59:00 Test Item Value Reference Range Interpretation Comments UA Leuk Est (test Negative (04/09/19 3:59 code = UA Leuk Est) PM) [facility] AND [id number] 21:59:00 Test Item Value Reference Range Interpretation Comments UA Sq Epi (test code = UA Sq Occasional /LPF Epi) [facility] AND [id number] 21:59:00 Test Item Value Reference Range Interpretation Comments UA WBC (test code = UA None Seen (04/09/19 3:59 WBC) PM) [facility] AND [id number] 21:59:00 Test Item Value Reference Range Interpretation Comments UA RBC (test code = 3-5 /HPF See_Comment [Automa shaun message] The UA RBC) system which ge nerated this result tra nsmitted reference range : <=2. The reference range was not used to interpr et this result as jackeline l/abnormal. [facility] AND [id number] 21:59:00 Test Item Value Reference Range Interpretation Comments UA Bacteria (test code = None Seen (04/09/19 UA Bacteria) 3:59 PM) [facility] [id number] 21:59:00 Test Item Value Reference Range Interpretation Comments MPV (test code = MPV) 9.6 7.4-10.4 [facility] PasoSvsawfuRYCSSCNPZP1218-07-30 21:59:00 Test Item Value Reference Range Interpretation Comments PT (test code = PT) 13.7 s 12.0-14.7 [facility] [id number] 21:59:00 Test Item Value Reference Range Interpretation Comments INR (test code = INR) 1.05 1 0.85-1.17 [facility] PasoTkygtygIAIQVFEHHK1073-64-12 21:59:00 Test Item Value Reference Range Interpretation Comments Segs (test code = Segs) 67.6 45.0-75.0 [facility] Pa[id number] 21:59:00 Test Item Value Reference Range Interpretation Comments Lymphocytes (test code = Lymphocytes) 23.6 20.0-40.0 [facility] PasoYkkbnmlGRUWGTSCQV9208-09-14 21:59:00 Test Item Value Reference Range Interpretation Comments Monocytes (test code = Monocytes) 5.8 2.0-12.0 [facility] [id number] 21:59:00 Test Item Value Reference Range Interpretation Comments Eosinophils (test code = 2.5 See_Comment [A utomated message] The Eosinophils) system which ge nerated this result tra nsmitted reference range : <=4.0. The reference r lily was not used to int erpret this result as normal/abnormal . [facility] [id number] 21:59:00 Test Item Value Reference Range Interpretation Comments Basophils (test code = 0.5 See_Comment [Aut omated message] The Basophils) system which ge nerated this result tra nsmitted reference range : <=1.0. The reference r lily was not used to int erpret this result as normal/abnormal . [facility] PasoOhqmpwxCRQNYNZKBR7152-42-13 21:59:00 Test Item Value Reference Range Interpretation Comments Neutrophils # (test code = Neutrophils 5.1 1.5-8.1 #) [facility] PasoEexdbdhYTXXZNVKQS2326-79-05 21:59:00 Test Item Value Reference Range Interpretation Comments Lymphocytes # (test code = Lymphocytes 1.8 1.0-5.5 #) [place] 107530-01-11 21:59:00 Test Item Value Reference Range Interpretation Comments Monocytes # (test code 0.4 See_Comment [Aut omated message] The = Monocytes #) system which generated this result tra nsmitted reference range : <=0.8. The reference r lily was not used to int erpret this result as normal/abnormal . [facility] [id number] 21:59:00 Test Item Value Reference Range Interpretation Comments Eosinophils # (test code 0.2 See_Comment [A utomated message] The = Eosinophils #) system [facility] h generated this result tra nsmitted reference range : <=0.5. The reference r lily was not used to int erpret this result as normal/abnormal . [facility] AND [id number] 21:59:00 Test Item Value Reference Range Interpretation Comments UA Color (test code = Yellow *NA*(04/09/19 UA Color) 3:59 PM) [facility] AND [id number] 21:59:00 Test Item Value Reference Range Interpretation Comments UA Turbidity (test code = Clear (04/09/19 3:59 UA Turbidity) PM) [facility] AND [id number] 21:59:00 Test Item Value Reference Range Interpretation Comments UA Spec Grav (test code = UA Spec 1.010 1 Grav) [facility] AND [id number] 21:59:00 Test Item Value Reference Range Interpretation Comments UA pH (test code = UA pH) 6.0 1 5.0-8.0 [facility] AND [id number] 21:59:00 Test Item Value Reference Range Interpretation Comments UA Protein (test code Negative (04/09/19 3:59 = UA Protein) PM) [facility] AND [id number] 21:59:00 Test Item Value Reference Range Interpretation Comments UA Glucose (test code Negative (04/09/19 3:59 = UA Glucose) PM) [facility] AND [id number] 21:59:00 Test Item Value Reference Range Interpretation Comments UA Ketones (test code Negative *NA*(04/09/19 = UA Ketones) 3:59 PM) [facility] AND [id number] 21:59:00 Test Item Value Reference Range Interpretation Comments UA Bili (test code = Negative *NA*(04/09/19 UA Bili) 3:59 PM) [facility] AND [id number] 21:59:00 Test Item Value Reference Range Interpretation Comments UA Blood (test code = Trace *ABN*(04/09/19 UA Blood) 3:59 PM) [facility] AND [id number] 21:59:00 Test Item Value Reference Range Interpretation Comments UA Urobilinogen (test code = UA 0.2 0.1-1.0 Urobilinogen) [facility] AND [id number] 21:59:00 Test Item Value Reference Range Interpretation Comments UA Nitrite (test code Negative (04/09/19 3:59 = UA Nitrite) PM) [facility] [id number] 21:59:00 Test Item Value Reference Range Interpretation Comments UA Leuk Est (test Negative (04/09/19 3:59 code = UA Leuk Est) PM) [facility] [id number] 21:59:00 Test Item Value Reference Range Interpretation Comments UA Sq Epi (test code = UA Sq Occasional /LPF Epi) [facility] [id number] 21:59:00 Test Item Value Reference Range Interpretation Comments UA WBC (test code = UA None Seen (04/09/19 3:59 WBC) PM) [facility] [id number] 21:59:00 Test Item Value Reference Range Interpretation Comments UA RBC (test code = 3-5 /HPF See_Comment [Automa shaun message] The UA RBC) system which ge nerated this result tra nsmitted reference range : <=2. The reference range was not used to interpr et this result as jackeline l/abnormal. [facility] [id number] 21:59:00 Test Item Value Reference Range Interpretation Comments UA Bacteria (test code = None Seen (04/09/19 UA Bacteria) 3:59 PM) [facility] [id number] 21:59:00 Test Item Value Reference Range Interpretation Comments Total CK (test code = Total CK) 93 12-191 [facility]CARD[facility] [id number] 21:59:00 Test Item Value Reference Range Interpretation Comments Troponin-I (test code 0.03 See_Comment [Auto mated message] The = Troponin-I) system which g enerated this result transmit shaun reference range : <=0.40. The reference r lily was not used to interpr et this result as jackeline l/abnormal. [facility] [id number] 21:59:00 Test Item Value Reference Range Interpretation Comments Glucose Lvl (test code = Glucose Lvl) 142 70-99 [facility] fav[facility]or[facility]it [id number] 21:59:00 Test Item Value Reference Range Interpretation Comments BUN (test code = BUN) 13 7-22 [facility] [id number] 21:59:00 Test Item Value Reference Range Interpretation Comments Creatinine Lvl (test code = Creatinine 0.79 0.50-1.40 Lvl) [facility]2020-01-11 21:59:00 Test Item Value Reference Range Interpretation Comments Sodium Lvl (test code = Sodium Lvl) 131 135-145 [facility]2020-01-11 21:59:00 Test Item Value Reference Range Interpretation Comments Potassium Lvl (test code = Potassium 3.4 3.5-5.1 Lvl) [place] 626920-01-11 21:59:00 Test Item Value Reference Range Interpretation Comments Chloride Lvl (test code = Chloride Lvl) 98 95-109 [facility] [id number] 21:59:00 Test Item Value Reference Range Interpretation Comments CO2 (test code = CO2) 33 24-32 [facility] [id number] 21:59:00 Test Item Value Reference Range Interpretation Comments Calcium Lvl (test code = Calcium Lvl) 9.3 8.5-10.5 [facility] [id number] 21:59:00 Test Item Value Reference Range Interpretation Comments Total Protein (test code = Total 8.1 6.4-8.4 Protein) [facility] [id number] 21:59:00 Test Item Value Reference Range Interpretation Comments Albumin Lvl (test code = Albumin Lvl) 3.6 3.5-5.0 [facility] [id number] 21:59:00 Test Item Value Reference Range Interpretation Comments ALT (test code = ALT) 18 See_Comment [Auto mated message] The system which ge nerated this result transmit shaun reference range : <=65. The reference range was not used to interpr et this result as jackeline l/abnormal. [facility] [id number] 21:59:00 Test Item Value Reference Range Interpretation Comments AST (test code = AST) 21 See_Comment [Auto mated message] The system which [employer] nerated this result transmit shaun reference range : <=37. The reference range was not used to interpr et this result as jackeline l/abnormal. [facility] [id number] 21:59:00 Test Item Value Reference Range Interpretation Comments Alk Phos (test code = Alk Phos) 95 39-136 [facility] [id number] 21:59:00 Test Item Value Reference Range Interpretation Comments Bili Total (test code = Bili Total) 0.5 0.2-1.3 [place] 626920-01-11 21:59:00 Test Item Value Reference Range Interpretation Comments AGAP (test code = AGAP) 3.4 10.0-20.0 [place] 626920-01-11 21:59:00 Test Item Value Reference Range Interpretation Comments B/C Ratio (test code = B/C Ratio) 16 1 6-25 [place] 626920-01-11 21:59:00 Test Item Value Reference Range Interpretation Comments Globulin (test code = Globulin) 4.5 2.7-4.2 [place] 626920-01-11 21:59:00 Test Item Value Reference Range Interpretation Comments A/G Ratio (test code = A/G Ratio) 0.8 1 0.7-1.6 [place] [address]-01-11 21:59:00 Test Item Value Reference Range Interpretation Comments eGFR (test code = eGFR) 78 [place] 626920-01-11 21:59:00 Test Item Value Reference Range Interpretation Comments Lipase Lvl (test code = Lipase Lvl) 112 73-393 [place] 626920-01-11 21:59:00 Test Item Value Reference Range Interpretation Comments Magnesium Lvl (test code = Magnesium 1.6 1.8-2.4 Lvl) [place] 107530-01-11 21:59:00 Test Item Value Reference Range Interpretation Comments WBC (test code = WBC) 7.6 3.7-10.4 [place] [address]-01-11 21:59:00 Test Item Value Reference Range Interpretation Comments RBC (test code = RBC) 4.45 4.20-5.40 [place] 107530-01-11 21:59:00 Test Item Value Reference Range Interpretation Comments Hgb (test code = Hgb) 13.6 12.0-16.0 [place] 107530-01-11 21:59:00 Test Item Value Reference Range Interpretation Comments Hct (test code = Hct) 40.3 36.0-48.0 [place] 107530-01-11 21:59:00 Test Item Value Reference Range Interpretation Comments MCV (test code = MCV) 90.6 80.0-98.0 [facility] PasoJidfidlUACGXPISEV6577-95-10 21:59:00 Test Item Value Reference Range Interpretation Comments MCH (test code = MCH) 30.5 pg 27.0-31.0 [place] 107530-01-11 21:59:00 Test Item Value Reference Range Interpretation Comments MCHC (test code = MCHC) 33.7 32.0-36.0 [facility] [id number] 21:59:00 Test Item Value Reference Range Interpretation Comments RDW (test code = RDW) 12.9 11.5-14.5 [place] 107530-01-11 21:59:00 Test Item Value Reference Range Interpretation Comments Platelet (test code = Platelet) 192 133-450 [facility] PasoCtemmvqKIEFEZJVEK8325-61-44 21:59:00 Test Item Value Reference Range Interpretation Comments MPV (test code = MPV) 9.6 7.4-10.4 [place] 107530-01-11 21:59:00 Test Item Value Reference Range Interpretation Comments PT (test code = PT) 13.7 s 12.0-14.7 [facility] PasoOoutfsxBLFFCIWPOW7934-51-31 21:59:00 Test Item Value Reference Range Interpretation Comments INR (test code = INR) 1.05 1 0.85-1.17 [place] 107530-01-11 21:59:00 Test Item Value Reference Range Interpretation Comments Segs (test code = Segs) 67.6 45.0-75.0 [place] 107530-01-11 21:59:00 Test Item Value Reference Range Interpretation Comments Lymphocytes (test code = Lymphocytes) 23.6 20.0-40.0 [place] 107530-01-11 21:59:00 Test Item Value Reference Range Interpretation Comments Monocytes (test code = Monocytes) 5.8 2.0-12.0 [place] 70[address]-01-11 21:59:00 Test Item Value Reference Range Interpretation Comments Eosinophils (test code = 2.5 See_Comment [A utomated message] The Eosinophils) system which ge nerated this result tra nsmitted reference range : <=4.0. The reference r lily was not used to int erpret this result as normal/abnormal . [facility] [id number] 21:59:00 Test Item Value Reference Range Interpretation Comments Basophils (test code = 0.5 See_Comment [Aut omated message] The Basophils) system which ge nerated this result tra nsmitted reference range : <=1.0. The reference r lily was not used to int erpret this result as normal/abnormal . [facility] PasoAcfhmhdYNHFVNEKOO9762-69-46 21:59:00 Test Item Value Reference Range Interpretation Comments Neutrophils # (test code = Neutrophils 5.1 1.5-8.1 #) [facility] PasoNcvxpuxPYJNCZOGXC1812-68-05 21:59:00 Test Item Value Reference Range Interpretation Comments Lymphocytes # (test code = Lymphocytes 1.8 1.0-5.5 #) [facility] [id number] 21:59:00 Test Item Value Reference Range Interpretation Comments Monocytes # (test code 0.4 See_Comment [Aut omated message] The = Monocytes #) system which generated this result tra nsmitted reference range : <=0.8. The reference r lily was not used to int erpret this result as normal/abnormal . [facility] [id number] 21:59:00 Test Item Value Reference Range Interpretation Comments Eosinophils # (test code 0.2 See_Comment [A utomated message] The = Eosinophils #) system whic h generated this result tra nsmitted reference range : <=0.5. The reference r lily was not used to int erpret this result as normal/abnormal . [facility] AND [id number] 21:59:00 Test Item Value Reference Range Interpretation Comments UA Color (test code = Yellow *NA*(04/09/19 UA Color) 3:59 PM) [facility] AND [id number] 21:59:00 Test Item Value Reference Range Interpretation Comments UA Turbidity (test code = Clear (04/09/19 3:59 UA Turbidity) PM) [facility] AND [id number] 21:59:00 Test Item Value Reference Range Interpretation Comments UA Spec Grav (test code = UA Spec 1.010 1 Grav) [facility] AND [id number] 21:59:00 Test Item Value Reference Range Interpretation Comments UA pH (test code = UA pH) 6.0 1 5.0-8.0 [facility] [id number] 21:59:00 Test Item Value Reference Range Interpretation Comments UA Protein (test code Negative (04/09/19 3:59 = UA Protein) PM) [facility] [id number] 21:59:00 Test Item Value Reference Range Interpretation Comments UA Glucose (test code Negative (04/09/19 3:59 = UA Glucose) PM) [facility] [id number] 21:59:00 Test Item Value Reference Range Interpretation Comments UA Ketones (test code Negative *NA*(04/09/19 = UA Ketones) 3:59 PM) [facility] [id number] 21:59:00 Test Item Value Reference Range Interpretation Comments UA Bili (test code = Negative *NA*(04/09/19 UA Bili) 3:59 PM) [facility] AND [id number] 21:59:00 Test Item Value Reference Range Interpretation Comments UA Blood (test code = Trace *ABN*(04/09/19 UA Blood) 3:59 PM) [facility] AND [id number] 21:59:00 Test Item Value Reference Range Interpretation Comments UA Urobilinogen (test code = UA 0.2 0.1-1.0 Urobilinogen) [facility] [id number] 21:59:00 Test Item Value Reference Range Interpretation Comments UA Nitrite (test code Negative (04/09/19 3:59 = UA Nitrite) PM) [facility] [id number] 21:59:00 Test Item Value Reference Range Interpretation Comments UA Leuk Est (test Negative (04/09/19 3:59 code = UA Leuk Est) PM) [facility] [id number] 21:59:00 Test Item Value Reference Range Interpretation Comments UA Sq Epi (test code = UA Sq Occasional /LPF Epi) [facility] [id number] 21:59:00 Test Item Value Reference Range Interpretation Comments UA WBC (test code = UA None Seen (04/09/19 3:59 WBC) PM) [facility] [id number] 21:59:00 Test Item Value Reference Range Interpretation Comments UA RBC (test code = 3-5 /HPF See_Comment [Automa shaun message] The UA RBC) system which ge nerated this result tra nsmitted reference range : <=2. The reference range was not used to interpr et this result as jackeline l/abnormal. [facility] AND [id number] 21:59:00 Test Item Value Reference Range Interpretation Comments UA Bacteria (test code = None Seen (04/09/19 UA Bacteria) 3:59 PM) [facility]annCARD[facility] [id number] 21:59:00 Test Item Value Reference Range Interpretation Comments Total CK (test code = Total CK) 93 12-191 [facility] [id number] 21:59:00 Test Item Value Reference Range Interpretation Comments Troponin-I (test code 0.03 See_Comment [Auto mated message] The = Troponin-I) system which g enerated this result transmit shaun reference range : <=0.40. The reference r lily was not used to interpr et this result as jackeline l/abnormal. [facility] fav[facility]it [id number] 21:59:00 Test Item Value Reference Range Interpretation Comments Glucose Lvl (test code = Glucose Lvl) 142 70-99 [facility] fav[employer] [id number] 21:59:00 Test Item Value Reference Range Interpretation Comments BUN (test code = BUN) 13 7-22 [facility] [id number] 21:59:00 Test Item Value Reference Range Interpretation Comments Creatinine Lvl (test code = Creatinine 0.79 0.50-1.40 Lvl) [facility] [id number] 21:59:00 Test Item Value Reference Range Interpretation Comments Sodium Lvl (test code = Sodium Lvl) 131 135-145 [facility] [id number] 21:59:00 Test Item Value Reference Range Interpretation Comments Potassium Lvl (test code = Potassium 3.4 3.5-5.1 Lvl) [facility] [id number] 21:59:00 Test Item Value Reference Range Interpretation Comments Chloride Lvl (test code = Chloride Lvl) 98 95-109 [facility] [id number] 21:59:00 Test Item Value Reference Range Interpretation Comments CO2 (test code = CO2) 33 24-32 [facility] [id number] 21:59:00 Test Item Value Reference Range Interpretation Comments Calcium Lvl (test code = Calcium Lvl) 9.3 8.5-10.5 [facility] [id number] 21:59:00 Test Item Value Reference Range Interpretation Comments Total Protein (test code = Total 8.1 6.4-8.4 Protein) [facility] [id number] 21:59:00 Test Item Value Reference Range Interpretation Comments Albumin Lvl (test code = Albumin Lvl) 3.6 3.5-5.0 [facility] [id number] 21:59:00 Test Item Value Reference Range Interpretation Comments ALT (test code = ALT) 18 See_Comment [Auto mated message] The system which ge nerated this result transmit shaun reference range : <=65. The reference range was not used to interpr et this result as jackeline l/abnormal. [facility] [id number] 21:59:00 Test Item Value Reference Range Interpretation Comments AST (test code = AST) 21 See_Comment [Auto mated message] The system which ge nerated this result transmit shaun reference range : <=37. The reference range was not used to interpr et this result as jackeline l/abnormal. [facility] [id number] 21:59:00 Test Item Value Reference Range Interpretation Comments Alk Phos (test code = Alk Phos) 95 39-136 [facility] [id number] 21:59:00 Test Item Value Reference Range Interpretation Comments Bili Total (test code = Bili Total) 0.5 0.2-1.3 [facility] [id number] 21:59:00 Test Item Value Reference Range Interpretation Comments AGAP (test code = AGAP) 3.4 10.0-20.0 [facility] [id number] 21:59:00 Test Item Value Reference Range Interpretation Comments B/C Ratio (test code = B/C Ratio) 16 1 6-25 [facility] [id number] 21:59:00 Test Item Value Reference Range Interpretation Comments Globulin (test code = Globulin) 4.5 2.7-4.2 [facility] [id number] 21:59:00 Test Item Value Reference Range Interpretation Comments A/G Ratio (test code = A/G Ratio) 0.8 1 0.7-1.6 [place] 626920-01-11 21:59:00 Test Item Value Reference Range Interpretation Comments eGFR (test code = eGFR) 78 [place] 626920-01-11 21:59:00 Test Item Value Reference Range Interpretation Comments Lipase Lvl (test code = Lipase Lvl) 112 73-393 [facility]2020-01-11 21:59:00 Test Item Value Reference Range Interpretation Comments Magnesium Lvl (test code = Magnesium 1.6 1.8-2.4 Lvl) [facility] [id number] 21:59:00 Test Item Value Reference Range Interpretation Comments WBC (test code = WBC) 7.6 3.7-10.4 [place] 107530-01-11 21:59:00 Test Item Value Reference Range Interpretation Comments RBC (test code = RBC) 4.45 4.20-5.40 [place] 107530-01-11 21:59:00 Test Item Value Reference Range Interpretation Comments Hgb (test code = Hgb) 13.6 12.0-16.0 [place] [address]-01-11 21:59:00 Test Item Value Reference Range Interpretation Comments Hct (test code = Hct) 40.3 36.0-48.0 [place] [address]-01-11 21:59:00 Test Item Value Reference Range Interpretation Comments MCV (test code = MCV) 90.6 80.0-98.0 [place] [address]-01-11 21:59:00 Test Item Value Reference Range Interpretation Comments MCH (test code = MCH) 30.5 pg 27.0-31.0 [place] 107530-01-11 21:59:00 Test Item Value Reference Range Interpretation Comments MCHC (test code = MCHC) 33.7 32.0-36.0 [place] 107530-01-11 21:59:00 Test Item Value Reference Range Interpretation Comments RDW (test code = RDW) 12.9 11.5-14.5 [place] [address]-01-11 21:59:00 Test Item Value Reference Range Interpretation Comments Platelet (test code = Platelet) 192 133-450 [facility] [id number] 21:59:00 Test Item Value Reference Range Interpretation Comments MPV (test code = MPV) 9.6 7.4-10.4 [facility] [id number] 21:59:00 Test Item Value Reference Range Interpretation Comments PT (test code = PT) 13.7 s 12.0-14.7 [facility] [id number] 21:59:00 Test Item Value Reference Range Interpretation Comments INR (test code = INR) 1.05 1 0.85-1.17 [facility] Pa[id number] 21:59:00 Test Item Value Reference Range Interpretation Comments Segs (test code = Segs) 67.6 45.0-75.0 [facility] [id number] 21:59:00 Test Item Value Reference Range Interpretation Comments Lymphocytes (test code = Lymphocytes) 23.6 20.0-40.0 [facility] [id number] 21:59:00 Test Item Value Reference Range Interpretation Comments Monocytes (test code = Monocytes) 5.8 2.0-12.0 [facility] [id number] 21:59:00 Test Item Value Reference Range Interpretation Comments Eosinophils (test code = 2.5 See_Comment [A utomated message] The Eosinophils) system which ge nerated this result tra nsmitted reference range : <=4.0. The reference r lily was not used to int erpret this result as normal/abnormal . [facility] [id number] 21:59:00 Test Item Value Reference Range Interpretation Comments Basophils (test code = 0.5 See_Comment [Aut omated message] The Basophils) system which ge nerated this result tra nsmitted reference range : <=1.0. The reference r lily was not used to int erpret this result as normal/abnormal . [facility] PasoSdxnoosRBJGUZRDST7776-05-20 21:59:00 Test Item Value Reference Range Interpretation Comments Neutrophils # (test code = Neutrophils 5.1 1.5-8.1 #) [facility] [id number] 21:59:00 Test Item Value Reference Range Interpretation Comments Lymphocytes # (test code = Lymphocytes 1.8 1.0-5.5 #) [facility] [id number] 21:59:00 Test Item Value Reference Range Interpretation Comments Monocytes # (test code 0.4 See_Comment [Aut omated message] The = Monocytes #) system which generated this result tra nsmitted reference range : <=0.8. The reference r lily was not used to int erpret this result as normal/abnormal . [facility] [id number] 21:59:00 Test Item Value Reference Range Interpretation Comments Eosinophils # (test code 0.2 See_Comment [A utomated message] The = Eosinophils #) system whic h generated this result tra nsmitted reference range : <=0.5. The reference r lily was not used to int erpret this result as normal/abnormal . [facility] AND [id number] 21:59:00 Test Item Value Reference Range Interpretation Comments UA Color (test code = Yellow *NA*(04/09/19 UA Color) 3:59 PM) [facility] AND [id number] 21:59:00 Test Item Value Reference Range Interpretation Comments UA Turbidity (test code = Clear (04/09/19 3:59 UA Turbidity) PM) [facility] AND [id number] 21:59:00 Test Item Value Reference Range Interpretation Comments UA Spec Grav (test code = UA Spec 1.010 1 Grav) [facility] AND [id number] 21:59:00 Test Item Value Reference Range Interpretation Comments UA pH (test code = UA pH) 6.0 1 5.0-8.0 [facility] AND [id number] 21:59:00 Test Item Value Reference Range Interpretation Comments UA Protein (test code Negative (04/09/19 3:59 = UA Protein) PM) [facility] AND [id number] 21:59:00 Test Item Value Reference Range Interpretation Comments UA Glucose (test code Negative (04/09/19 3:59 = UA Glucose) PM) [facility] AND [id number] 21:59:00 Test Item Value Reference Range Interpretation Comments UA Ketones (test code Negative *NA*(04/09/19 = UA Ketones) 3:59 PM) [facility] AND [id number] 21:59:00 Test Item Value Reference Range Interpretation Comments UA Bili (test code = Negative *NA*(04/09/19 UA Bili) 3:59 PM) [facility] [id number] 21:59:00 Test Item Value Reference Range Interpretation Comments UA Blood (test code = Trace *ABN*(04/09/19 UA Blood) 3:59 PM) [facility] [id number] 21:59:00 Test Item Value Reference Range Interpretation Comments UA Urobilinogen (test code = UA 0.2 0.1-1.0 Urobilinogen) [facility] [id number] 21:59:00 Test Item Value Reference Range Interpretation Comments UA Nitrite (test code Negative (04/09/19 3:59 = UA Nitrite) PM) [facility] [id number] 21:59:00 Test Item Value Reference Range Interpretation Comments UA Leuk Est (test Negative (04/09/19 3:59 code = UA Leuk Est) PM) [facility] [id number] 21:59:00 Test Item Value Reference Range Interpretation Comments UA Sq Epi (test code = UA Sq Occasional /LPF Epi) [facility] AND [id number] 21:59:00 Test Item Value Reference Range Interpretation Comments UA WBC (test code = UA None Seen (04/09/19 3:59 WBC) PM) [facility] [id number] 21:59:00 Test Item Value Reference Range Interpretation Comments UA RBC (test code = 3-5 /HPF See_Comment [Automa shaun message] The UA RBC) system which ge nerated this result tra nsmitted reference range : <=2. The reference range was not used to interpr et this result as jackeline l/abnormal. [facility] [id number] 21:59:00 Test Item Value Reference Range Interpretation Comments UA Bacteria (test code = None Seen (04/09/19 UA Bacteria) 3:59 PM) [facility] [id number] 21:59:00 Test Item Value Reference Range Interpretation Comments Total CK (test code = Total CK) 93 12-191 [facility] [id number] 21:59:00 Test Item Value Reference Range Interpretation Comments Troponin-I (test code 0.03 See_Comment [Auto mated message] The = Troponin-I) system which g enerated this result transmit shaun reference range : <=0.40. The reference r lily was not used to interpr et this result as jackeline l/abnormal. [facility]2020-01-11 21:59:00 Test Item Value Reference Range Interpretation Comments Glucose Lvl (test code = Glucose Lvl) 142 70-99 [facility]2020-01-11 21:59:00 Test Item Value Reference Range Interpretation Comments BUN (test code = BUN) 13 7-22 [place] 626920-01-11 21:59:00 Test Item Value Reference Range Interpretation Comments Creatinine Lvl (test code = Creatinine 0.79 0.50-1.40 Lvl) [facility]2020-01-11 21:59:00 Test Item Value Reference Range Interpretation Comments Sodium Lvl (test code = Sodium Lvl) 131 135-145 [facility]2020-01-11 21:59:00 Test Item Value Reference Range Interpretation Comments Potassium Lvl (test code = Potassium 3.4 3.5-5.1 Lvl) [facility]2020-01-11 21:59:00 Test Item Value Reference Range Interpretation Comments Chloride Lvl (test code = Chloride Lvl) 98 95-109 [facility]2020-01-11 21:59:00 Test Item Value Reference Range Interpretation Comments CO2 (test code = CO2) 33 24-32 [facility]2020-01-11 21:59:00 Test Item Value Reference Range Interpretation Comments Calcium Lvl (test code = Calcium Lvl) 9.3 8.5-10.5 [place] 626920-01-11 21:59:00 Test Item Value Reference Range Interpretation Comments Total Protein (test code = Total 8.1 6.4-8.4 Protein) [facility]2020-01-11 21:59:00 Test Item Value Reference Range Interpretation Comments Albumin Lvl (test code = Albumin Lvl) 3.6 3.5-5.0 [place] 626920-01-11 21:59:00 Test Item Value Reference Range Interpretation Comments ALT (test code = ALT) 18 See_Comment [Auto mated message] The system which ge nerated this result transmit shaun reference range : <=65. The reference range was not used to interpr et this result as jackeline l/abnormal. [facility] [facility]2020-01-11 21:59:00 Test Item Value Reference Range Interpretation Comments AST (test code = AST) 21 See_Comment [Auto mated message] The system which ge nerated this result transmit shaun reference range : <=37. The reference range was not used to interpr et this result as jackeline l/abnormal. [facility]2020-01-11 21:59:00 Test Item Value Reference Range Interpretation Comments Alk Phos (test code = Alk Phos) 95 39-136 [facility] [facility]2020-01-11 21:59:00 Test Item Value Reference Range Interpretation Comments Bili Total (test code = Bili Total) 0.5 0.2-1.3 [facility]2020-01-11 21:59:00 Test Item Value Reference Range Interpretation Comments AGAP (test code = AGAP) 3.4 10.0-20.0 [facility] [facility]2020-01-11 21:59:00 Test Item Value Reference Range Interpretation Comments B/C Ratio (test code = B/C Ratio) 16 1 6-25 [facility] [employer] [facility]2020-01-11 21:59:00 Test Item Value Reference Range Interpretation Comments Globulin (test code = Globulin) 4.5 2.7-4.2 [facility] Q[employer]io [id number] 21:59:00 Test Item Value Reference Range Interpretation Comments Total CK (test code = Total CK) 93 12-191 [facility] [employer] [id number] 21:59:00 Test Item Value Reference Range Interpretation Comments Troponin-I (test code 0.03 See_Comment [Auto mated message] The = Troponin-I) system which g enerated this result transmit shaun reference range : <=0.40. The reference r lily was not used to interpr et this result as jackeline l/abnormal. [facility]2020-01-11 21:59:00 Test Item Value Reference Range Interpretation Comments Glucose Lvl (test code = Glucose Lvl) 142 70-99 [employer]2020-01-11 21:59:00 Test Item Value Reference Range Interpretation Comments BUN (test code = BUN) 13 7-22 [place] 626920-01-11 21:59:00 Test Item Value Reference Range Interpretation Comments Creatinine Lvl (test code = Creatinine 0.79 0.50-1.40 Lvl) [facility]2020-01-11 21:59:00 Test Item Value Reference Range Interpretation Comments Sodium Lvl (test code = Sodium Lvl) 131 135-145 [place] 626920-01-11 21:59:00 Test Item Value Reference Range Interpretation Comments Potassium Lvl (test code = Potassium 3.4 3.5-5.1 Lvl) [place] 626920-01-11 21:59:00 Test Item Value Reference Range Interpretation Comments Chloride Lvl (test code = Chloride Lvl) 98 95-109 [place] 626920-01-11 21:59:00 Test Item Value Reference Range Interpretation Comments CO2 (test code = CO2) 33 24-32 [place] 626920-01-11 21:59:00 Test Item Value Reference Range Interpretation Comments Calcium Lvl (test code = Calcium Lvl) 9.3 8.5-10.5 [place] 626920-01-11 21:59:00 Test Item Value Reference Range Interpretation Comments A/G Ratio (test code = A/G Ratio) 0.8 1 0.7-1.6 [place] 626920-01-11 21:59:00 Test Item Value Reference Range Interpretation Comments Total Protein (test code = Total 8.1 6.4-8.4 Protein) [place] 626920-01-11 21:59:00 Test Item Value Reference Range Interpretation Comments Albumin Lvl (test code = Albumin Lvl) 3.6 3.5-5.0 [place] 626920-01-11 21:59:00 Test Item Value Reference Range Interpretation Comments ALT (test code = ALT) 18 See_Comment [Auto mated message] The system which ge nerated this result transmit shaun reference range : <=65. The reference range was not used to interpr et this result as jackeline l/abnormal. [facility] [id number] 21:59:00 Test Item Value Reference Range Interpretation Comments AST (test code = AST) 21 See_Comment [Auto mated message] The system which ge nerated this result transmit shaun reference range : <=37. The reference range was not used to interpr et this result as jackeline l/abnormal. [facility]2020-01-11 21:59:00 Test Item Value Reference Range Interpretation Comments Alk Phos (test code = Alk Phos) 95 39-136 [facility]2020-01-11 21:59:00 Test Item Value Reference Range Interpretation Comments Bili Total (test code = Bili Total) 0.5 0.2-1.3 [facility]2020-01-11 21:59:00 Test Item Value Reference Range Interpretation Comments AGAP (test code = AGAP) 3.4 10.0-20.0 [facility]2020-01-11 21:59:00 Test Item Value Reference Range Interpretation Comments B/C Ratio (test code = B/C Ratio) 16 1 6-25 [place] 626920-01-11 21:59:00 Test Item Value Reference Range Interpretation Comments Globulin (test code = Globulin) 4.5 2.7-4.2 [facility]2020-01-11 21:59:00 Test Item Value Reference Range Interpretation Comments A/G Ratio (test code = A/G Ratio) 0.8 1 0.7-1.6 [place] 626920-01-11 21:59:00 Test Item Value Reference Range Interpretation Comments eGFR (test code = eGFR) 78 [facility]2020-01-11 21:59:00 Test Item Value Reference Range Interpretation Comments eGFR (test code = eGFR) 78 [place] 626920-01-11 21:59:00 Test Item Value Reference Range Interpretation Comments Lipase Lvl (test code = Lipase Lvl) 112 73-393 [facility]2020-01-11 21:59:00 Test Item Value Reference Range Interpretation Comments Magnesium Lvl (test code = Magnesium 1.6 1.8-2.4 Lvl) [id number] 21:59:00 Test Item Value Reference Range Interpretation Comments WBC (test code = WBC) 7.6 3.7-10.4 [facility] PasoVicmsymXTHVWVJJQD1441-18-82 21:59:00 Test Item Value Reference Range Interpretation Comments RBC (test code = RBC) 4.45 4.20-5.40 [facility] CampusPmdmdpnRBVDTWDTWN4110-38-68 21:59:00 Test Item Value Reference Range Interpretation Comments Hgb (test code = Hgb) 13.6 12.0-16.0 [facility] CampusWadsvnlOCQEIUEPPP8894-10-55 21:59:00 Test Item Value Reference Range Interpretation Comments Hct (test code = Hct) 40.3 36.0-48.0 [id number] 21:59:00 Test Item Value Reference Range Interpretation Comments MCV (test code = MCV) 90.6 80.0-98.0 [facility] CampusOywznorEFMNTGABOC8291-20-26 21:59:00 Test Item Value Reference Range Interpretation Comments MCH (test code = MCH) 30.5 pg 27.0-31.0 [facility] Camp[id number] 21:59:00 Test Item Value Reference Range Interpretation Comments MCHC (test code = MCHC) 33.7 32.0-36.0 [facility]2020-01-11 21:59:00 Test Item Value Reference Range Interpretation Comments Lipase Lvl (test code = Lipase Lvl) 112 73-393 [facility] PasoDhkuznqHYIDSMUVRM0567-01-65 21:59:00 Test Item Value Reference Range Interpretation Comments RDW (test code = RDW) 12.9 11.5-14.5 [id number] 21:59:00 Test Item Value Reference Range Interpretation Comments Platelet (test code = Platelet) 192 133-450 [facility] Pa[id number] 21:59:00 Test Item Value Reference Range Interpretation Comments MPV (test code = MPV) 9.6 7.4-10.4 [id number] 21:59:00 Test Item Value Reference Range Interpretation Comments PT (test code = PT) 13.7 s 12.0-14.7 [facility][id number] 21:59:00 Test Item Value Reference Range Interpretation Comments INR (test code = INR) 1.05 1 0.85-1.17 [facility] PasoFiaqnazWCALKPAHGU7907-98-82 21:59:00 Test Item Value Reference Range Interpretation Comments Segs (test code = Segs) 67.6 45.0-75.0 [place] 107530-01-11 21:59:00 Test Item Value Reference Range Interpretation Comments Lymphocytes (test code = Lymphocytes) 23.6 20.0-40.0 [place] 107530-01-11 21:59:00 Test Item Value Reference Range Interpretation Comments Monocytes (test code = Monocytes) 5.8 2.0-12.0 [place] 107530-01-11 21:59:00 Test Item Value Reference Range Interpretation Comments Eosinophils (test code = 2.5 See_Comment [A utomated message] The Eosinophils) system which ge nerated this result tra nsmitted reference range : <=4.0. The reference r lily was not used to int erpret this result as normal/abnormal . [place] 107530-01-11 21:59:00 Test Item Value Reference Range Interpretation Comments Basophils (test code = 0.5 See_Comment [Aut omated message] The Basophils) system which ge nerated this result tra nsmitted reference range : <=1.0. The reference r lily was not used to int erpret this result as normal/abnormal . [facility]2020-01-11 21:59:00 Test Item Value Reference Range Interpretation Comments Magnesium Lvl (test code = Magnesium 1.6 1.8-2.4 Lvl) [place] 107530-01-11 21:59:00 Test Item Value Reference Range Interpretation Comments Neutrophils # (test code = Neutrophils 5.1 1.5-8.1 #) [place] 107530-01-11 21:59:00 Test Item Value Reference Range Interpretation Comments Lymphocytes # (test code = Lymphocytes 1.8 1.0-5.5 #) [place] 107530-01-11 21:59:00 Test Item Value Reference Range Interpretation Comments Monocytes # (test code 0.4 See_Comment [Aut omated message] The = Monocytes #) system which generated this result tra nsmitted reference range : <=0.8. The reference r lily was not used to int erpret this result as normal/abnormal . [place] 107530-01-11 21:59:00 Test Item Value Reference Range Interpretation Comments Eosinophils # (test code 0.2 See_Comment [A utomated message] The = Eosinophils #) system whic h generated this result tra nsmitted reference range : <=0.5. The reference r lily was not used to int erpret this result as normal/abnormal . [facility] AND [id number] 21:59:00 Test Item Value Reference Range Interpretation Comments UA Color (test code = Yellow *NA*(04/09/19 UA Color) 3:59 PM) [facility] AND [id number] 21:59:00 Test Item Value Reference Range Interpretation Comments UA Turbidity (test code = Clear (04/09/19 3:59 UA Turbidity) PM) [facility] AND [id number] 21:59:00 Test Item Value Reference Range Interpretation Comments UA Spec Grav (test code = UA Spec 1.010 1 Grav) [facility] AND [id number] 21:59:00 Test Item Value Reference Range Interpretation Comments UA pH (test code = UA pH) 6.0 1 5.0-8.0 [facility] AND [id number] 21:59:00 Test Item Value Reference Range Interpretation Comments UA Protein (test code Negative (04/09/19 3:59 = UA Protein) PM) [facility] AND [id number] 21:59:00 Test Item Value Reference Range Interpretation Comments UA Glucose (test code Negative (04/09/19 3:59 = UA Glucose) PM) [facility] CampusCemfctkWRRLQOVERB1593-03-03 21:59:00 Test Item Value Reference Range Interpretation Comments WBC (test code = WBC) 7.6 3.7-10.4 [facility] AND [id number] 21:59:00 Test Item Value Reference Range Interpretation Comments UA Ketones (test code Negative *NA*(04/09/19 = UA Ketones) 3:59 PM) [facility] AND [id number] 21:59:00 Test Item Value Reference Range Interpretation Comments UA Bili (test code = Negative *NA*(04/09/19 UA Bili) 3:59 PM) [facility] AND [id number] 21:59:00 Test Item Value Reference Range Interpretation Comments UA Blood (test code = Trace *ABN*(04/09/19 UA Blood) 3:59 PM) [facility] AND [id number] 21:59:00 Test Item Value Reference Range Interpretation Comments UA Urobilinogen (test code = UA 0.2 0.1-1.0 Urobilinogen) [facility] AND [id number] 21:59:00 Test Item Value Reference Range Interpretation Comments UA Nitrite (test code Negative (04/09/19 3:59 = UA Nitrite) PM) [facility] AND [id number] 21:59:00 Test Item Value Reference Range Interpretation Comments UA Leuk Est (test Negative (04/09/19 3:59 code = UA Leuk Est) PM) [facility] AND [id number] 21:59:00 Test Item Value Reference Range Interpretation Comments UA Sq Epi (test code = UA Sq Occasional /LPF Epi) [facility] AND [id number] 21:59:00 Test Item Value Reference Range Interpretation Comments UA WBC (test code = UA None Seen (04/09/19 3:59 WBC) PM) [facility] AND [id number] 21:59:00 Test Item Value Reference Range Interpretation Comments UA RBC (test code = 3-5 /HPF See_Comment [Automa shaun message] The UA RBC) system which ge nerated this result tra nsmitted reference range : <=2. The reference range was not used to interpr et this result as jackeline l/abnormal. [facility] AND [id number] 21:59:00 Test Item Value Reference Range Interpretation Comments UA Bacteria (test code = None Seen (04/09/19 UA Bacteria) 3:59 PM) [facility] PasoLseeaabAFYWYYYEDA9683-31-33 21:59:00 Test Item Value Reference Range Interpretation Comments RBC (test code = RBC) 4.45 4.20-5.40 [facility] PasoEnuluudDTMMLKXXHC7837-85-20 21:59:00 Test Item Value Reference Range Interpretation Comments Hgb (test code = Hgb) 13.6 12.0-16.0 [facility] PasoQzffevqNZIDWAEINR6977-55-78 21:59:00 Test Item Value Reference Range Interpretation Comments Hct (test code = Hct) 40.3 36.0-48.0 [facility] PasoYsuhffuDVMDOGJOQX3773-10-96 21:59:00 Test Item Value Reference Range Interpretation Comments MCV (test code = MCV) 90.6 80.0-98.0 [place] 107530-01-11 21:59:00 Test Item Value Reference Range Interpretation Comments MCH (test code = MCH) 30.5 pg 27.0-31.0 [facility] PasoQfrrpznVRGYDDZXRP0877-68-73 21:59:00 Test Item Value Reference Range Interpretation Comments MCHC (test code = MCHC) 33.7 32.0-36.0 [facility] PasoBfbsytsKZCBQTQNTY9718-64-94 21:59:00 Test Item Value Reference Range Interpretation Comments RDW (test code = RDW) 12.9 11.5-14.5 [place] 107530-01-11 21:59:00 Test Item Value Reference Range Interpretation Comments Platelet (test code = Platelet) 192 133-450 [facility] PasoFbpnnjlRVTOTIJECK0558-22-50 21:59:00 Test Item Value Reference Range Interpretation Comments MPV (test code = MPV) 9.6 7.4-10.4 [facility] [id number] 21:59:00 Test Item Value Reference Range Interpretation Comments PT (test code = PT) 13.7 s 12.0-14.7 [facility] PasoBudiifpSLMRGDQHQS8940-46-55 21:59:00 Test Item Value Reference Range Interpretation Comments INR (test code = INR) 1.05 1 0.85-1.17 [facility] [id number] 21:59:00 Test Item Value Reference Range Interpretation Comments Segs (test code = Segs) 67.6 45.0-75.0 [facility] PasoGsxrexyPCMNNKYLIX3171-94-18 21:59:00 Test Item Value Reference Range Interpretation Comments Lymphocytes (test code = Lymphocytes) 23.6 20.0-40.0 [facility] Pa[id number] 21:59:00 Test Item Value Reference Range Interpretation Comments Monocytes (test code = Monocytes) 5.8 2.0-12.0 [place] 107530-01-11 21:59:00 Test Item Value Reference Range Interpretation Comments Eosinophils (test code = 2.5 See_Comment [A utomated message] The Eosinophils) system which ge nerated this result tra nsmitted reference range : <=4.0. The reference r lily was not used to int erpret this result as normal/abnormal . [facility] PasoCuttofpYXVNQIUNVY8792-39-34 21:59:00 Test Item Value Reference Range Interpretation Comments Basophils (test code = 0.5 See_Comment [Aut omated message] The Basophils) system which ge nerated this result tra nsmitted reference range : <=1.0. The reference r lily was not used to int erpret this result as normal/abnormal . [facility] PasoZcfglrzTKTIFURFZS9654-70-47 21:59:00 Test Item Value Reference Range Interpretation Comments Neutrophils # (test code = Neutrophils 5.1 1.5-8.1 #) [facility] PasoGulfrfjEGOEMTWGIJ0652-04-73 21:59:00 Test Item Value Reference Range Interpretation Comments Lymphocytes # (test code = Lymphocytes 1.8 1.0-5.5 #) [facility] PasoVpwqyfpCPVVJIRNCA7326-41-84 21:59:00 Test Item Value Reference Range Interpretation Comments Monocytes # (test code 0.4 See_Comment [Aut omated message] The = Monocytes #) system which generated this result tra nsmitted reference range : <=0.8. The reference r lily was not used to int erpret this result as normal/abnormal . [facility] PasoZgyvqnsJLUAZMHDUR8155-49-31 21:59:00 Test Item Value Reference Range Interpretation Comments Eosinophils # (test code 0.2 See_Comment [A utomated message] The = Eosinophils #) system whic h generated this result tra nsmitted reference range : <=0.5. The reference r lily was not used to int erpret this result as normal/abnormal . [facility] AND [id number] 21:59:00 Test Item Value Reference Range Interpretation Comments UA Color (test code = Yellow *NA*(04/09/19 UA Color) 3:59 PM) [facility] AND [id number] 21:59:00 Test Item Value Reference Range Interpretation Comments UA Turbidity (test code = Clear (04/09/19 3:59 UA Turbidity) PM) [facility] AND [id number] 21:59:00 Test Item Value Reference Range Interpretation Comments UA Spec Grav (test code = UA Spec 1.010 1 Grav) [facility] AND [id number] 21:59:00 Test Item Value Reference Range Interpretation Comments UA pH (test code = UA pH) 6.0 1 5.0-8.0 [facility] AND [id number] 21:59:00 Test Item Value Reference Range Interpretation Comments UA Protein (test code Negative (04/09/19 3:59 = UA Protein) PM) [facility] AND [id number] 21:59:00 Test Item Value Reference Range Interpretation Comments UA Glucose (test code Negative (04/09/19 3:59 = UA Glucose) PM) [facility]Good [facility]WE[facility] [id number] 21:59:00 Test Item Value Reference Range Interpretation Comments Total CK (test code = Total CK) 93 12-191 [facility] [id number] 21:59:00 Test Item Value Reference Range Interpretation Comments Troponin-I (test code 0.03 See_Comment [Auto mated message] The = Troponin-I) system which g enerated this result transmit shaun reference range : <=0.40. The reference r lily was not used to interpr et this result as jackeline l/abnormal. [facility] fav.or.it [id number] 21:59:00 Test Item Value Reference Range Interpretation Comments Glucose Lvl (test code = Glucose Lvl) 142 70-99 [facility]ownAdQu[facility] [id number] 21:59:00 Test Item Value Reference Range Interpretation Comments BUN (test code = BUN) 13 7-22 [facility] CampusThingMagic [id number] 21:59:00 Test Item Value Reference Range Interpretation Comments Creatinine Lvl (test code = Creatinine 0.79 0.50-1.40 Lvl) [facility]ownAd[facility] [id number] 21:59:00 Test Item Value Reference Range Interpretation Comments Sodium Lvl (test code = Sodium Lvl) 131 135-145 [facility] AND [id number] 21:59:00 Test Item Value Reference Range Interpretation Comments UA Ketones (test code Negative *NA*(04/09/19 = UA Ketones) 3:59 PM) [facility]2020-01-11 21:59:00 Test Item Value Reference Range Interpretation Comments Potassium Lvl (test code = Potassium 3.4 3.5-5.1 Lvl) [facility] CampusThingMagic [id number] 21:59:00 Test Item Value Reference Range Interpretation Comments Chloride Lvl (test code = Chloride Lvl) 98 95-109 [facility]2020-01-11 21:59:00 Test Item Value Reference Range Interpretation Comments CO2 (test code = CO2) 33 24-32 [facility]2020-01-11 21:59:00 Test Item Value Reference Range Interpretation Comments Calcium Lvl (test code = Calcium Lvl) 9.3 8.5-10.5 [facility]2020-01-11 21:59:00 Test Item Value Reference Range Interpretation Comments Total Protein (test code = Total 8.1 6.4-8.4 Protein) [facility]2020-01-11 21:59:00 Test Item Value Reference Range Interpretation Comments Albumin Lvl (test code = Albumin Lvl) 3.6 3.5-5.0 [facility]2020-01-11 21:59:00 Test Item Value Reference Range Interpretation Comments ALT (test code = ALT) 18 See_Comment [Auto mated message] The system which ge nerated this result transmit shaun reference range : <=65. The reference range was not used to interpr et this result as jackeline l/abnormal. [facility]2020-01-11 21:59:00 Test Item Value Reference Range Interpretation Comments AST (test code = AST) 21 See_Comment [Auto mated message] The system which ge nerated this result transmit shaun reference range : <=37. The reference range was not used to interpr et this result as jackeline l/abnormal. [facility]2020-01-11 21:59:00 Test Item Value Reference Range Interpretation Comments Alk Phos (test code = Alk Phos) 95 39-136 [facility]2020-01-11 21:59:00 Test Item Value Reference Range Interpretation Comments Bili Total (test code = Bili Total) 0.5 0.2-1.3 [facility] AND [id number] 21:59:00 Test Item Value Reference Range Interpretation Comments UA Bili (test code = Negative *NA*(04/09/19 UA Bili) 3:59 PM) [facility]2020-01-11 21:59:00 Test Item Value Reference Range Interpretation Comments AGAP (test code = AGAP) 3.4 10.0-20.0 [facility]2020-01-11 21:59:00 Test Item Value Reference Range Interpretation Comments B/C Ratio (test code = B/C Ratio) 16 1 6-25 [facility]2020-01-11 21:59:00 Test Item Value Reference Range Interpretation Comments Globulin (test code = Globulin) 4.5 2.7-4.2 [facility]2020-01-11 21:59:00 Test Item Value Reference Range Interpretation Comments A/G Ratio (test code = A/G Ratio) 0.8 1 0.7-1.6 [facility]2020-01-11 21:59:00 Test Item Value Reference Range Interpretation Comments eGFR (test code = eGFR) 78 [facility] [id number] 21:59:00 Test Item Value Reference Range Interpretation Comments Lipase Lvl (test code = Lipase Lvl) 112 73-393 [facility]2020-01-11 21:59:00 Test Item Value Reference Range Interpretation Comments Magnesium Lvl (test code = Magnesium 1.6 1.8-2.4 Lvl) [facility] Pa[id number] 21:59:00 Test Item Value Reference Range Interpretation Comments WBC (test code = WBC) 7.6 3.7-10.4 [facility] PasoGcniwxxVXUZLZTBHT3022-65-68 21:59:00 Test Item Value Reference Range Interpretation Comments RBC (test code = RBC) 4.45 4.20-5.40 [facility] PasoUdutexkDPQCQWSWPQ6310-72-50 21:59:00 Test Item Value Reference Range Interpretation Comments Hgb (test code = Hgb) 13.6 12.0-16.0 [facility]2020-01-11 21:59:00 Test Item Value Reference Range Interpretation Comments UA Blood (test code = Trace *ABN*(04/09/19 UA Blood) 3:59 PM) [facility] PasoRlftvnaHYUDNAMZBO2089-60-50 21:59:00 Test Item Value Reference Range Interpretation Comments Hct (test code = Hct) 40.3 36.0-48.0 [facility] PasoEsbnznvOQOWUCXCTJ3042-24-01 21:59:00 Test Item Value Reference Range Interpretation Comments MCV (test code = MCV) 90.6 80.0-98.0 [facility] PasoUsbldftQUIYHBVNAB1062-38-34 21:59:00 Test Item Value Reference Range Interpretation Comments MCH (test code = MCH) 30.5 pg 27.0-31.0 [id number] 21:59:00 Test Item Value Reference Range Interpretation Comments MCHC (test code = MCHC) 33.7 32.0-36.0 [facility][id number] 21:59:00 Test Item Value Reference Range Interpretation Comments RDW (test code = RDW) 12.9 11.5-14.5 [facility]awUlroipxQWVCXCHTOX1417-88-30 21:59:00 Test Item Value Reference Range Interpretation Comments Platelet (test code = Platelet) 192 133-450 [id number] 21:59:00 Test Item Value Reference Range Interpretation Comments MPV (test code = MPV) 9.6 7.4-10.4 [facility] PasoTbjfkopHLWDTTCNFK1178-74-76 21:59:00 Test Item Value Reference Range Interpretation Comments PT (test code = PT) 13.7 s 12.0-14.7 [facility][id number] 21:59:00 Test Item Value Reference Range Interpretation Comments INR (test code = INR) 1.05 1 0.85-1.17 [facility]awVgyhswuIEFGQZSYCA1409-01-65 21:59:00 Test Item Value Reference Range Interpretation Comments Segs (test code = Segs) 67.6 45.0-75.0 [facility]2020-01-11 21:59:00 Test Item Value Reference Range Interpretation Comments UA Urobilinogen (test code = UA 0.2 0.1-1.0 Urobilinogen) [id number] 21:59:00 Test Item Value Reference Range Interpretation Comments Lymphocytes (test code = Lymphocytes) 23.6 20.0-40.0 [id number] 21:59:00 Test Item Value Reference Range Interpretation Comments Monocytes (test code = Monocytes) 5.8 2.0-12.0 [facility][id number] 21:59:00 Test Item Value Reference Range Interpretation Comments Eosinophils (test code = 2.5 See_Comment [A utomated message] The Eosinophils) system which ge nerated this result tra nsmitted reference range : <=4.0. The reference r lily was not used to int erpret this result as normal/abnormal . [facility] PasoXnidsjjKVGZBNWXMK6340-24-96 21:59:00 Test Item Value Reference Range Interpretation Comments Basophils (test code = 0.5 See_Comment [Aut omated message] The Basophils) system which ge nerated this result tra nsmitted reference range : <=1.0. The reference r lily was not used to int erpret this result as normal/abnormal . [facility] PasoGnhdjxlODVGBJJBEN7379-62-85 21:59:00 Test Item Value Reference Range Interpretation Comments Neutrophils # (test code = Neutrophils 5.1 1.5-8.1 #) [facility] [id number] 21:59:00 Test Item Value Reference Range Interpretation Comments Lymphocytes # (test code = Lymphocytes 1.8 1.0-5.5 #) [facility] PasoRuoynusBIDFMZOANW7253-45-17 21:59:00 Test Item Value Reference Range Interpretation Comments Monocytes # (test code 0.4 See_Comment [Aut omated message] The = Monocytes #) system which generated this result tra nsmitted reference range : <=0.8. The reference r lily was not used to int erpret this result as normal/abnormal . [facility] PasoVfnhytnOIRZDFPTGB9680-45-68 21:59:00 Test Item Value Reference Range Interpretation Comments Eosinophils # (test code 0.2 See_Comment [A utomated message] The = Eosinophils #) system whic h generated this result tra nsmitted reference range : <=0.5. The reference r lily was not used to int erpret this result as normal/abnormal . [facility] AND [id number] 21:59:00 Test Item Value Reference Range Interpretation Comments UA Color (test code = Yellow *NA*(04/09/19 UA Color) 3:59 PM) [facility] AND [id number] 21:59:00 Test Item Value Reference Range Interpretation Comments UA Turbidity (test code = Clear (04/09/19 3:59 UA Turbidity) PM) [facility] AND [id number] 21:59:00 Test Item Value Reference Range Interpretation Comments UA Nitrite (test code Negative (04/09/19 3:59 = UA Nitrite) PM) [facility] AND [id number] 21:59:00 Test Item Value Reference Range Interpretation Comments UA Spec Grav (test code = UA Spec 1.010 1 Grav) [facility] AND [id number] 21:59:00 Test Item Value Reference Range Interpretation Comments UA pH (test code = UA pH) 6.0 1 5.0-8.0 [facility]ann[facility] AND [id number] 21:59:00 Test Item Value Reference Range Interpretation Comments UA Protein (test code Negative (04/09/19 3:59 = UA Protein) PM) [facility] [id number] 21:59:00 Test Item Value Reference Range Interpretation Comments UA Glucose (test code Negative (04/09/19 3:59 = UA Glucose) PM) [facility] [id number] 21:59:00 Test Item Value Reference Range Interpretation Comments UA Ketones (test code Negative *NA*(04/09/19 = UA Ketones) 3:59 PM) [facility] AND [id number] 21:59:00 Test Item Value Reference Range Interpretation Comments UA Bili (test code = Negative *NA*(04/09/19 UA Bili) 3:59 PM) [facility] AND [id number] 21:59:00 Test Item Value Reference Range Interpretation Comments UA Blood (test code = Trace *ABN*(04/09/19 UA Blood) 3:59 PM) [facility] AND [id number] 21:59:00 Test Item Value Reference Range Interpretation Comments UA Urobilinogen (test code = UA 0.2 0.1-1.0 Urobilinogen) [facility] AND [id number] 21:59:00 Test Item Value Reference Range Interpretation Comments UA Nitrite (test code Negative (04/09/19 3:59 = UA Nitrite) PM) [facility] AND [id number] 21:59:00 Test Item Value Reference Range Interpretation Comments UA Leuk Est (test Negative (04/09/19 3:59 code = UA Leuk Est) PM) [facility] AND [id number] 21:59:00 Test Item Value Reference Range Interpretation Comments UA Leuk Est (test Negative (04/09/19 3:59 code = UA Leuk Est) PM) [facility] [id number] 21:59:00 Test Item Value Reference Range Interpretation Comments UA Sq Epi (test code = UA Sq Occasional /LPF Epi) [facility] [id number] 21:59:00 Test Item Value Reference Range Interpretation Comments UA WBC (test code = UA None Seen (04/09/19 3:59 WBC) PM) [facility] [facility] [id number] 21:59:00 Test Item Value Reference Range Interpretation Comments UA RBC (test code = 3-5 /HPF See_Comment [Automa shaun message] The UA RBC) system which ge nerated this result tra nsmitted reference range : <=2. The reference range was not used to interpr et this result as jackeline l/abnormal. [facility] [id number] 21:59:00 Test Item Value Reference Range Interpretation Comments UA Bacteria (test code = None Seen (04/09/19 UA Bacteria) 3:59 PM) [facility] [id number] 21:59:00 Test Item Value Reference Range Interpretation Comments UA Sq Epi (test code = UA Sq Occasional /LPF Epi) [facility] [id number] 21:59:00 Test Item Value Reference Range Interpretation Comments UA WBC (test code = UA None Seen (04/09/19 3:59 WBC) PM) [facility] [id number] 21:59:00 Test Item Value Reference Range Interpretation Comments UA RBC (test code = 3-5 /HPF See_Comment [Automa shaun message] The UA RBC) system which ge nerated this result tra nsmitted reference range : <=2. The reference range was not used to interpr et this result as jackeline l/abnormal. [facility] [id number] 21:59:00 Test Item Value Reference Range Interpretation Comments UA Bacteria (test code = None Seen (04/09/19 UA Bacteria) 3:59 PM) [facility] [id number] 21:59:00 Test Item Value Reference Range Interpretation Comments Total CK (test code = Total CK) 93 12-191 [facility] [id number] 21:59:00 Test Item Value Reference Range Interpretation Comments Troponin-I (test code 0.03 See_Comment [Auto mated message] The = Troponin-I) system which g enerated this result transmit shaun reference range : <=0.40. The reference r lily was not used to interpr et this result as jackeline l/abnormal. [place] 626920-01-11 21:59:00 Test Item Value Reference Range Interpretation Comments Glucose Lvl (test code = Glucose Lvl) 142 70-99 [place] 626920-01-11 21:59:00 Test Item Value Reference Range Interpretation Comments BUN (test code = BUN) 13 7-22 [place] 626920-01-11 21:59:00 Test Item Value Reference Range Interpretation Comments Creatinine Lvl (test code = Creatinine 0.79 0.50-1.40 Lvl) [place] 626920-01-11 21:59:00 Test Item Value Reference Range Interpretation Comments Sodium Lvl (test code = Sodium Lvl) 131 135-145 [place] 626920-01-11 21:59:00 Test Item Value Reference Range Interpretation Comments Potassium Lvl (test code = Potassium 3.4 3.5-5.1 Lvl) [place] 626920-01-11 21:59:00 Test Item Value Reference Range Interpretation Comments Chloride Lvl (test code = Chloride Lvl) 98 95-109 [place] 626920-01-11 21:59:00 Test Item Value Reference Range Interpretation Comments CO2 (test code = CO2) 33 24-32 [place] 626920-01-11 21:59:00 Test Item Value Reference Range Interpretation Comments Calcium Lvl (test code = Calcium Lvl) 9.3 8.5-10.5 [place] 626920-01-11 21:59:00 Test Item Value Reference Range Interpretation Comments Total Protein (test code = Total 8.1 6.4-8.4 Protein) [place] 626920-01-11 21:59:00 Test Item Value Reference Range Interpretation Comments Albumin Lvl (test code = Albumin Lvl) 3.6 3.5-5.0 [place] 626920-01-11 21:59:00 Test Item Value Reference Range Interpretation Comments ALT (test code = ALT) 18 See_Comment [Auto mated message] The system which ge nerated this result transmit shaun reference range : <=65. The reference range was not used to interpr et this result as jackeline l/abnormal. [facility]2020-01-11 21:59:00 Test Item Value Reference Range Interpretation Comments AST (test code = AST) 21 See_Comment [Auto mated message] The system which ge nerated this result transmit shaun reference range : <=37. The reference range was not used to interpr et this result as jackeline l/abnormal. [facility]2020-01-11 21:59:00 Test Item Value Reference Range Interpretation Comments Alk Phos (test code = Alk Phos) 95 39-136 [facility]2020-01-11 21:59:00 Test Item Value Reference Range Interpretation Comments Bili Total (test code = Bili Total) 0.5 0.2-1.3 [place] 626920-01-11 21:59:00 Test Item Value Reference Range Interpretation Comments AGAP (test code = AGAP) 3.4 10.0-20.0 [facility]2020-01-11 21:59:00 Test Item Value Reference Range Interpretation Comments B/C Ratio (test code = B/C Ratio) 16 1 6-25 [facility]2020-01-11 21:59:00 Test Item Value Reference Range Interpretation Comments Globulin (test code = Globulin) 4.5 2.7-4.2 [facility]2020-01-11 21:59:00 Test Item Value Reference Range Interpretation Comments A/G Ratio (test code = A/G Ratio) 0.8 1 0.7-1.6 [place] 626920-01-11 21:59:00 Test Item Value Reference Range Interpretation Comments eGFR (test code = eGFR) 78 [facility]2020-01-11 21:59:00 Test Item Value Reference Range Interpretation Comments Lipase Lvl (test code = Lipase Lvl) 112 73-393 [facility]2020-01-11 21:59:00 Test Item Value Reference Range Interpretation Comments Magnesium Lvl (test code = Magnesium 1.6 1.8-2.4 Lvl) [id number] 21:59:00 Test Item Value Reference Range Interpretation Comments WBC (test code = WBC) 7.6 3.7-10.4 [place] 107530-01-11 21:59:00 Test Item Value Reference Range Interpretation Comments RBC (test code = RBC) 4.45 4.20-5.40 [facility] PasoKzjrshhOKYRTZUXAQ7857-76-94 21:59:00 Test Item Value Reference Range Interpretation Comments Hgb (test code = Hgb) 13.6 12.0-16.0 [place] 107530-01-11 21:59:00 Test Item Value Reference Range Interpretation Comments Hct (test code = Hct) 40.3 36.0-48.0 [facility] PasoNvliobgFSVDCYTOPW0098-71-40 21:59:00 Test Item Value Reference Range Interpretation Comments MCV (test code = MCV) 90.6 80.0-98.0 [facility] PasoMhkiafvXEOPUFLOML6266-61-65 21:59:00 Test Item Value Reference Range Interpretation Comments MCH (test code = MCH) 30.5 pg 27.0-31.0 [facility] PasoLiszxruDWHYXLKTHU1778-15-70 21:59:00 Test Item Value Reference Range Interpretation Comments MCHC (test code = MCHC) 33.7 32.0-36.0 [facility] PasoXomndqeTCRDVJJEIC6581-08-65 21:59:00 Test Item Value Reference Range Interpretation Comments RDW (test code = RDW) 12.9 11.5-14.5 [facility] PasoNputszdCNIRGVTZPM8690-33-65 21:59:00 Test Item Value Reference Range Interpretation Comments Platelet (test code = Platelet) 192 133-450 [facility] PasoGlhsajkYJSDPCDRQP4949-31-39 21:59:00 Test Item Value Reference Range Interpretation Comments MPV (test code = MPV) 9.6 7.4-10.4 [facility] PasoTsxyexgGUIJJTUBSE0061-23-93 21:59:00 Test Item Value Reference Range Interpretation Comments PT (test code = PT) 13.7 s 12.0-14.7 [facility] PasoWapxszvOHBWHYALGC1185-49-49 21:59:00 Test Item Value Reference Range Interpretation Comments INR (test code = INR) 1.05 1 0.85-1.17 [place] 107530-01-11 21:59:00 Test Item Value Reference Range Interpretation Comments Segs (test code = Segs) 67.6 45.0-75.0 [facility] PasoLioytbtFIBFKARQNM3885-78-44 21:59:00 Test Item Value Reference Range Interpretation Comments Lymphocytes (test code = Lymphocytes) 23.6 20.0-40.0 [facility] PasoGtdxapnLMSGFJCXLJ0971-95-36 21:59:00 Test Item Value Reference Range Interpretation Comments Monocytes (test code = Monocytes) 5.8 2.0-12.0 [facility] PasoQekmwzyGJMFDTYMKV1919-77-69 21:59:00 Test Item Value Reference Range Interpretation Comments Eosinophils (test code = 2.5 See_Comment [A utomated message] The Eosinophils) system which ge nerated this result tra nsmitted reference range : <=4.0. The reference r lily was not used to int erpret this result as normal/abnormal . [facility] PasoBexwpgxAEWGPTALEU7553-24-50 21:59:00 Test Item Value Reference Range Interpretation Comments Basophils (test code = 0.5 See_Comment [Aut omated message] The Basophils) system which ge nerated this result tra nsmitted reference range : <=1.0. The reference r lily was not used to int erpret this result as normal/abnormal . [facility] PasoIrdrqwyLNGERYAENI6356-78-27 21:59:00 Test Item Value Reference Range Interpretation Comments Neutrophils # (test code = Neutrophils 5.1 1.5-8.1 #) [facility] PasoMlbksveTINRMYFZOM5488-00-70 21:59:00 Test Item Value Reference Range Interpretation Comments Lymphocytes # (test code = Lymphocytes 1.8 1.0-5.5 #) [facility] PasoMywjvfmUJKOMIFFUG3641-89-47 21:59:00 Test Item Value Reference Range Interpretation Comments Monocytes # (test code 0.4 See_Comment [Aut omated message] The = Monocytes #) system which generated this result tra nsmitted reference range : <=0.8. The reference r lily was not used to int erpret this result as normal/abnormal . [facility] PasoEbsytjrTDWRNWGIVU5234-61-75 21:59:00 Test Item Value Reference Range Interpretation Comments Eosinophils # (test code 0.2 See_Comment [A utomated message] The = Eosinophils #) system ic h generated this result tra nsmitted reference range : <=0.5. The reference r lily was not used to int erpret this result as normal/abnormal . [facility]2020-01-11 21:59:00 Test Item Value Reference Range Interpretation Comments UA Color (test code = Yellow *NA*(04/09/19 UA Color) 3:59 PM) [facility] [id number] 21:59:00 Test Item Value Reference Range Interpretation Comments UA Turbidity (test code = Clear (04/09/19 3:59 UA Turbidity) PM) [facility] [id number] 21:59:00 Test Item Value Reference Range Interpretation Comments UA Spec Grav (test code = UA Spec 1.010 1 Grav) [facility] AND [id number] 21:59:00 Test Item Value Reference Range Interpretation Comments UA pH (test code = UA pH) 6.0 1 5.0-8.0 [facility] AND [id number] 21:59:00 Test Item Value Reference Range Interpretation Comments UA Protein (test code Negative (04/09/19 3:59 = UA Protein) PM) [facility] AND [id number] 21:59:00 Test Item Value Reference Range Interpretation Comments UA Glucose (test code Negative (04/09/19 3:59 = UA Glucose) PM) [facility] AND [id number] 21:59:00 Test Item Value Reference Range Interpretation Comments UA Ketones (test code Negative *NA*(04/09/19 = UA Ketones) 3:59 PM) [facility] [id number] 21:59:00 Test Item Value Reference Range Interpretation Comments UA Bili (test code = Negative *NA*(04/09/19 UA Bili) 3:59 PM) [facility] AND [id number] 21:59:00 Test Item Value Reference Range Interpretation Comments UA Blood (test code = Trace *ABN*(04/09/19 UA Blood) 3:59 PM) [facility] AND [id number] 21:59:00 Test Item Value Reference Range Interpretation Comments UA Urobilinogen (test code = UA 0.2 0.1-1.0 Urobilinogen) [facility] AND [id number] 21:59:00 Test Item Value Reference Range Interpretation Comments UA Nitrite (test code Negative (04/09/19 3:59 = UA Nitrite) PM) [facility] [id number] 21:59:00 Test Item Value Reference Range Interpretation Comments UA Leuk Est (test Negative (04/09/19 3:59 code = UA Leuk Est) PM) [facility] AND [id number] 21:59:00 Test Item Value Reference Range Interpretation Comments UA Sq Epi (test code = UA Sq Occasional /LPF Epi) [facility] AND [id number] 21:59:00 Test Item Value Reference Range Interpretation Comments UA WBC (test code = UA None Seen (04/09/19 3:59 WBC) PM) [facility] AND [id number] 21:59:00 Test Item Value Reference Range Interpretation Comments UA RBC (test code = 3-5 /HPF See_Comment [Automa shaun message] The UA RBC) system which ge nerated this result tra nsmitted reference range : <=2. The reference range was not used to interpr et this result as jackeline l/abnormal. [facility] AND [id number] 21:59:00 Test Item Value Reference Range Interpretation Comments UA Bacteria (test code = None Seen (04/09/19 UA Bacteria) 3:59 PM) [facility] UptownTabSquareCARDIAC [id number] 21:59:00 Test Item Value Reference Range Interpretation Comments Total CK (test code = Total CK) 93 12-191 [facility] UptownTabSquareCARDIAC [id number] 21:59:00 Test Item Value Reference Range Interpretation Comments Troponin-I (test code 0.03 See_Comment [Auto mated message] The = Troponin-I) system which g enerated this result transmit shaun reference range : <=0.40. The reference r lily was not used to interpr et this result as jackeline l/abnormal. [facility] fav.or.it [id number] 21:59:00 Test Item Value Reference Range Interpretation Comments Glucose Lvl (test code = Glucose Lvl) 142 70-99 [facility] fav.or.it [id number] 21:59:00 Test Item Value Reference Range Interpretation Comments BUN (test code = BUN) 13 7-22 [facility] fav.or.it [id number] 21:59:00 Test Item Value Reference Range Interpretation Comments Creatinine Lvl (test code = Creatinine 0.79 0.50-1.40 Lvl) [facility]ptownAdQuantic [id number] 21:59:00 Test Item Value Reference Range Interpretation Comments Sodium Lvl (test code = Sodium Lvl) 131 135-145 [facility] [id number] 21:59:00 Test Item Value Reference Range Interpretation Comments Potassium Lvl (test code = Potassium 3.4 3.5-5.1 Lvl) [facility]2020-01-11 21:59:00 Test Item Value Reference Range Interpretation Comments Chloride Lvl (test code = Chloride Lvl) 98 95-109 [facility] [id number] 21:59:00 Test Item Value Reference Range Interpretation Comments CO2 (test code = CO2) 33 24-32 [facility] [id number] 21:59:00 Test Item Value Reference Range Interpretation Comments Calcium Lvl (test code = Calcium Lvl) 9.3 8.5-10.5 [facility] [id number] 21:59:00 Test Item Value Reference Range Interpretation Comments Total Protein (test code = Total 8.1 6.4-8.4 Protein) [facility] [id number] 21:59:00 Test Item Value Reference Range Interpretation Comments Albumin Lvl (test code = Albumin Lvl) 3.6 3.5-5.0 [facility]ownAd[facility] [id number] 21:59:00 Test Item Value Reference Range Interpretation Comments ALT (test code = ALT) 18 See_Comment [Auto mated message] The system which ge nerated this result transmit shaun reference range : <=65. The reference range was not used to interpr et this result as jackeline l/abnormal. [facility] [id number] 21:59:00 Test Item Value Reference Range Interpretation Comments AST (test code = AST) 21 See_Comment [Auto mated message] The system which ge nerated this result transmit shaun reference range : <=37. The reference range was not used to interpr et this result as jackeline l/abnormal. [facility] [id number] 21:59:00 Test Item Value Reference Range Interpretation Comments Alk Phos (test code = Alk Phos) 95 39-136 [facility] [id number] 21:59:00 Test Item Value Reference Range Interpretation Comments Bili Total (test code = Bili Total) 0.5 0.2-1.3 [place] 626920-01-11 21:59:00 Test Item Value Reference Range Interpretation Comments AGAP (test code = AGAP) 3.4 10.0-20.0 [place] 626920-01-11 21:59:00 Test Item Value Reference Range Interpretation Comments B/C Ratio (test code = B/C Ratio) 16 1 6-25 [place] [address]-01-11 21:59:00 Test Item Value Reference Range Interpretation Comments Globulin (test code = Globulin) 4.5 2.7-4.2 [place] 626920-01-11 21:59:00 Test Item Value Reference Range Interpretation Comments A/G Ratio (test code = A/G Ratio) 0.8 1 0.7-1.6 [place] [address]-01-11 21:59:00 Test Item Value Reference Range Interpretation Comments eGFR (test code = eGFR) 78 [place] 626920-01-11 21:59:00 Test Item Value Reference Range Interpretation Comments Lipase Lvl (test code = Lipase Lvl) 112 73-393 [place] 626920-01-11 21:59:00 Test Item Value Reference Range Interpretation Comments Magnesium Lvl (test code = Magnesium 1.6 1.8-2.4 Lvl) [place] 107530-01-11 21:59:00 Test Item Value Reference Range Interpretation Comments WBC (test code = WBC) 7.6 3.7-10.4 [place] 107530-01-11 21:59:00 Test Item Value Reference Range Interpretation Comments RBC (test code = RBC) 4.45 4.20-5.40 [place] 107530-01-11 21:59:00 Test Item Value Reference Range Interpretation Comments Hgb (test code = Hgb) 13.6 12.0-16.0 [place] [address]-01-11 21:59:00 Test Item Value Reference Range Interpretation Comments Hct (test code = Hct) 40.3 36.0-48.0 [place] [address]-01-11 21:59:00 Test Item Value Reference Range Interpretation Comments MCV (test code = MCV) 90.6 80.0-98.0 [place] 107530-01-11 21:59:00 Test Item Value Reference Range Interpretation Comments MCH (test code = MCH) 30.5 pg 27.0-31.0 [facility] [id number] 21:59:00 Test Item Value Reference Range Interpretation Comments MCHC (test code = MCHC) 33.7 32.0-36.0 [facility] PasoLgpifmmGCDVEHTKFC4453-14-79 21:59:00 Test Item Value Reference Range Interpretation Comments RDW (test code = RDW) 12.9 11.5-14.5 [facility] [id number] 21:59:00 Test Item Value Reference Range Interpretation Comments Platelet (test code = Platelet) 192 133-450 [facility] PasoHthijbcVLURLFJKOU0736-89-15 21:59:00 Test Item Value Reference Range Interpretation Comments MPV (test code = MPV) 9.6 7.4-10.4 [facility] Pa[id number] 21:59:00 Test Item Value Reference Range Interpretation Comments PT (test code = PT) 13.7 s 12.0-14.7 [facility] PasoVnmcwpyTPXXAUWJNE4362-87-72 21:59:00 Test Item Value Reference Range Interpretation Comments INR (test code = INR) 1.05 1 0.85-1.17 [facility] PasoVlysfihIVOEGQNOLI5398-08-37 21:59:00 Test Item Value Reference Range Interpretation Comments Segs (test code = Segs) 67.6 45.0-75.0 [facility] PasoTxzjivlGAXSDHCPED1108-52-19 21:59:00 Test Item Value Reference Range Interpretation Comments Lymphocytes (test code = Lymphocytes) 23.6 20.0-40.0 [facility] PasoMmccfdmBIYKAEHVNR6457-50-01 21:59:00 Test Item Value Reference Range Interpretation Comments Monocytes (test code = Monocytes) 5.8 2.0-12.0 [facility] [id number] 21:59:00 Test Item Value Reference Range Interpretation Comments Eosinophils (test code = 2.5 See_Comment [A utomated message] The Eosinophils) system which ge nerated this result tra nsmitted reference range : <=4.0. The reference r lily was not used to int erpret this result as normal/abnormal . [facility] PasoKtkhsvzQMNNEACNMI5491-83-03 21:59:00 Test Item Value Reference Range Interpretation Comments Basophils (test code = 0.5 See_Comment [Aut omated message] The Basophils) system which ge nerated this result tra nsmitted reference range : <=1.0. The reference r lily was not used to int erpret this result as normal/abnormal . [facility] [id number] 21:59:00 Test Item Value Reference Range Interpretation Comments Neutrophils # (test code = Neutrophils 5.1 1.5-8.1 #) [facility] PasoFwqzjflEUSTOLJSRV2483-84-44 21:59:00 Test Item Value Reference Range Interpretation Comments Lymphocytes # (test code = Lymphocytes 1.8 1.0-5.5 #) [facility] PasoVnlixgwSXYZDRWVFU2941-39-29 21:59:00 Test Item Value Reference Range Interpretation Comments Monocytes # (test code 0.4 See_Comment [Aut omated message] The = Monocytes #) system which generated this result tra nsmitted reference range : <=0.8. The reference r lily was not used to int erpret this result as normal/abnormal . [facility] [id number] 21:59:00 Test Item Value Reference Range Interpretation Comments Eosinophils # (test code 0.2 See_Comment [A utomated message] The = Eosinophils #) system whic h generated this result tra nsmitted reference range : <=0.5. The reference r lily was not used to int erpret this result as normal/abnormal . [facility] AND [id number] 21:59:00 Test Item Value Reference Range Interpretation Comments UA Color (test code = Yellow *NA*(04/09/19 UA Color) 3:59 PM) [facility] AND [id number] 21:59:00 Test Item Value Reference Range Interpretation Comments UA Turbidity (test code = Clear (04/09/19 3:59 UA Turbidity) PM) [facility] AND [id number] 21:59:00 Test Item Value Reference Range Interpretation Comments UA Spec Grav (test code = UA Spec 1.010 1 Grav) [facility] AND [id number] 21:59:00 Test Item Value Reference Range Interpretation Comments UA pH (test code = UA pH) 6.0 1 5.0-8.0 [facility] AND [id number] 21:59:00 Test Item Value Reference Range Interpretation Comments UA Protein (test code Negative (04/09/19 3:59 = UA Protein) PM) [facility] [id number] 21:59:00 Test Item Value Reference Range Interpretation Comments UA Glucose (test code Negative (04/09/19 3:59 = UA Glucose) PM) [facility] [id number] 21:59:00 Test Item Value Reference Range Interpretation Comments UA Ketones (test code Negative *NA*(04/09/19 = UA Ketones) 3:59 PM) [facility] AND [id number] 21:59:00 Test Item Value Reference Range Interpretation Comments UA Bili (test code = Negative *NA*(04/09/19 UA Bili) 3:59 PM) [facility] AND [id number] 21:59:00 Test Item Value Reference Range Interpretation Comments UA Blood (test code = Trace *ABN*(04/09/19 UA Blood) 3:59 PM) [facility] AND [id number] 21:59:00 Test Item Value Reference Range Interpretation Comments UA Urobilinogen (test code = UA 0.2 0.1-1.0 Urobilinogen) [facility] AND [id number] 21:59:00 Test Item Value Reference Range Interpretation Comments UA Nitrite (test code Negative (04/09/19 3:59 = UA Nitrite) PM) [facility] AND [id number] 21:59:00 Test Item Value Reference Range Interpretation Comments UA Leuk Est (test Negative (04/09/19 3:59 code = UA Leuk Est) PM) [facility] AND [id number] 21:59:00 Test Item Value Reference Range Interpretation Comments UA Sq Epi (test code = UA Sq Occasional /LPF Epi) [facility] AND [id number] 21:59:00 Test Item Value Reference Range Interpretation Comments UA WBC (test code = UA None Seen (04/09/19 3:59 WBC) PM) [facility] AND [id number] 21:59:00 Test Item Value Reference Range Interpretation Comments UA RBC (test code = 3-5 /HPF See_Comment [Automa shaun message] The UA RBC) system which ge nerated this result tra nsmitted reference range : <=2. The reference range was not used to interpr et this result as jackeline l/abnormal. [facility] AND [id number] 21:59:00 Test Item Value Reference Range Interpretation Comments UA Bacteria (test code = None Seen (04/09/19 UA Bacteria) 3:59 PM) [facility] [id number] 21:59:00 Test Item Value Reference Range Interpretation Comments Total CK (test code = Total CK) 93 12-191 [facility] [id number] 21:59:00 Test Item Value Reference Range Interpretation Comments Troponin-I (test code 0.03 See_Comment [Auto mated message] The = Troponin-I) system which g enerated this result transmit shaun reference range : <=0.40. The reference r lily was not used to interpr et this result as jackeline l/abnormal. [facility]2020-01-11 21:59:00 Test Item Value Reference Range Interpretation Comments Glucose Lvl (test code = Glucose Lvl) 142 70-99 [facility] CampusThing[facility] [id number] 21:59:00 Test Item Value Reference Range Interpretation Comments BUN (test code = BUN) 13 7-22 [facility]2020-01-11 21:59:00 Test Item Value Reference Range Interpretation Comments Creatinine Lvl (test code = Creatinine 0.79 0.50-1.40 Lvl) [facility]2020-01-11 21:59:00 Test Item Value Reference Range Interpretation Comments Sodium Lvl (test code = Sodium Lvl) 131 135-145 [facility] [id number] 21:59:00 Test Item Value Reference Range Interpretation Comments Potassium Lvl (test code = Potassium 3.4 3.5-5.1 Lvl) [facility] [id number] 21:59:00 Test Item Value Reference Range Interpretation Comments Chloride Lvl (test code = Chloride Lvl) 98 95-109 [facility]2020-01-11 21:59:00 Test Item Value Reference Range Interpretation Comments CO2 (test code = CO2) 33 24-32 [facility]2020-01-11 21:59:00 Test Item Value Reference Range Interpretation Comments Calcium Lvl (test code = Calcium Lvl) 9.3 8.5-10.5 [facility]ownTabSquareN[facility] [id number] 21:59:00 Test Item Value Reference Range Interpretation Comments Total Protein (test code = Total 8.1 6.4-8.4 Protein) [place] [id number] 21:59:00 Test Item Value Reference Range Interpretation Comments Albumin Lvl (test code = Albumin Lvl) 3.6 3.5-5.0 [facility] [id number] 21:59:00 Test Item Value Reference Range Interpretation Comments ALT (test code = ALT) 18 See_Comment [Auto mated message] The system which ge nerated this result transmit shaun reference range : <=65. The reference range was not used to interpr et this result as jackeline l/abnormal. [facility] [id number] 21:59:00 Test Item Value Reference Range Interpretation Comments AST (test code = AST) 21 See_Comment [Auto mated message] The system which ge nerated this result transmit shaun reference range : <=37. The reference range was not used to interpr et this result as jackeline l/abnormal. [facility] [id number] 21:59:00 Test Item Value Reference Range Interpretation Comments Alk Phos (test code = Alk Phos) 95 39-136 [facility] [id number] 21:59:00 Test Item Value Reference Range Interpretation Comments Bili Total (test code = Bili Total) 0.5 0.2-1.3 [facility] [id number] 21:59:00 Test Item Value Reference Range Interpretation Comments AGAP (test code = AGAP) 3.4 10.0-20.0 [facility] [id number] 21:59:00 Test Item Value Reference Range Interpretation Comments B/C Ratio (test code = B/C Ratio) 16 1 6-25 [facility] [id number] 21:59:00 Test Item Value Reference Range Interpretation Comments Globulin (test code = Globulin) 4.5 2.7-4.2 [facility] [id number] 21:59:00 Test Item Value Reference Range Interpretation Comments A/G Ratio (test code = A/G Ratio) 0.8 1 0.7-1.6 [place] 626920-01-11 21:59:00 Test Item Value Reference Range Interpretation Comments eGFR (test code = eGFR) 78 [facility] [id number] 21:59:00 Test Item Value Reference Range Interpretation Comments Lipase Lvl (test code = Lipase Lvl) 112 73-393 [facility]2020-01-11 21:59:00 Test Item Value Reference Range Interpretation Comments Magnesium Lvl (test code = Magnesium 1.6 1.8-2.4 Lvl) [id number] 21:59:00 Test Item Value Reference Range Interpretation Comments WBC (test code = WBC) 7.6 3.7-10.4 [facility] [id number] 21:59:00 Test Item Value Reference Range Interpretation Comments RBC (test code = RBC) 4.45 4.20-5.40 [facility] PasoYifkhifGDQVIEHDWO3710-53-44 21:59:00 Test Item Value Reference Range Interpretation Comments Hgb (test code = Hgb) 13.6 12.0-16.0 [place] 107530-01-11 21:59:00 Test Item Value Reference Range Interpretation Comments Hct (test code = Hct) 40.3 36.0-48.0 [facility] [id number] 21:59:00 Test Item Value Reference Range Interpretation Comments MCV (test code = MCV) 90.6 80.0-98.0 [place] 107530-01-11 21:59:00 Test Item Value Reference Range Interpretation Comments MCH (test code = MCH) 30.5 pg 27.0-31.0 [facility] [id number] 21:59:00 Test Item Value Reference Range Interpretation Comments MCHC (test code = MCHC) 33.7 32.0-36.0 [place] 107530-01-11 21:59:00 Test Item Value Reference Range Interpretation Comments RDW (test code = RDW) 12.9 11.5-14.5 [place] 107530-01-11 21:59:00 Test Item Value Reference Range Interpretation Comments Platelet (test code = Platelet) 192 133-450 [facility] [id number] 21:59:00 Test Item Value Reference Range Interpretation Comments MPV (test code = MPV) 9.6 7.4-10.4 [facility] [id number] 21:59:00 Test Item Value Reference Range Interpretation Comments PT (test code = PT) 13.7 s 12.0-14.7 [place] 107530-01-11 21:59:00 Test Item Value Reference Range Interpretation Comments INR (test code = INR) 1.05 1 0.85-1.17 [facility] PasoPfdftjjEYUZOFSQPY7482-65-13 21:59:00 Test Item Value Reference Range Interpretation Comments Segs (test code = Segs) 67.6 45.0-75.0 [place] 107530-01-11 21:59:00 Test Item Value Reference Range Interpretation Comments Lymphocytes (test code = Lymphocytes) 23.6 20.0-40.0 [place] 107530-01-11 21:59:00 Test Item Value Reference Range Interpretation Comments Monocytes (test code = Monocytes) 5.8 2.0-12.0 [facility] [id number] 21:59:00 Test Item Value Reference Range Interpretation Comments Eosinophils (test code = 2.5 See_Comment [A utomated message] The Eosinophils) system which ge nerated this result tra nsmitted reference range : <=4.0. The reference r lily was not used to int erpret this result as normal/abnormal . [facility] PasoJejlpbbIXWMRYYQBJ5366-04-23 21:59:00 Test Item Value Reference Range Interpretation Comments Basophils (test code = 0.5 See_Comment [Aut omated message] The Basophils) system which ge nerated this result tra nsmitted reference range : <=1.0. The reference r lily was not used to int erpret this result as normal/abnormal . [facility] PasoRdlbogyWFJPLLREIW8957-71-04 21:59:00 Test Item Value Reference Range Interpretation Comments Neutrophils # (test code = Neutrophils 5.1 1.5-8.1 #) [facility] PasoLbjquhgNPZBOOBTDG2251-28-66 21:59:00 Test Item Value Reference Range Interpretation Comments Lymphocytes # (test code = Lymphocytes 1.8 1.0-5.5 #) [facility] PasoYuejtelSSCNNNUQLU9628-35-97 21:59:00 Test Item Value Reference Range Interpretation Comments Monocytes # (test code 0.4 See_Comment [Aut omated message] The = Monocytes #) system which generated this result tra nsmitted reference range : <=0.8. The reference r lily was not used to int erpret this result as normal/abnormal . [facility] [id number] 21:59:00 Test Item Value Reference Range Interpretation Comments Eosinophils # (test code 0.2 See_Comment [A utomated message] The = Eosinophils #) system whic h generated this result tra nsmitted reference range : <=0.5. The reference r lily was not used to int erpret this result as normal/abnormal . [facility] [id number] 21:59:00 Test Item Value Reference Range Interpretation Comments UA Color (test code = Yellow *NA*(04/09/19 UA Color) 3:59 PM) [facility] [id number] 21:59:00 Test Item Value Reference Range Interpretation Comments UA Turbidity (test code = Clear (04/09/19 3:59 UA Turbidity) PM) [facility] [id number] 21:59:00 Test Item Value Reference Range Interpretation Comments UA Spec Grav (test code = UA Spec 1.010 1 Grav) [facility] AND [id number] 21:59:00 Test Item Value Reference Range Interpretation Comments UA pH (test code = UA pH) 6.0 1 5.0-8.0 [facility] AND [id number] 21:59:00 Test Item Value Reference Range Interpretation Comments UA Protein (test code Negative (04/09/19 3:59 = UA Protein) PM) [facility] [id number] 21:59:00 Test Item Value Reference Range Interpretation Comments UA Glucose (test code Negative (04/09/19 3:59 = UA Glucose) PM) [facility] [id number] 21:59:00 Test Item Value Reference Range Interpretation Comments UA Ketones (test code Negative *NA*(04/09/19 = UA Ketones) 3:59 PM) [facility] [id number] 21:59:00 Test Item Value Reference Range Interpretation Comments UA Bili (test code = Negative *NA*(04/09/19 UA Bili) 3:59 PM) [facility] [id number] 21:59:00 Test Item Value Reference Range Interpretation Comments UA Blood (test code = Trace *ABN*(04/09/19 UA Blood) 3:59 PM) [facility] [id number] 21:59:00 Test Item Value Reference Range Interpretation Comments UA Urobilinogen (test code = UA 0.2 0.1-1.0 Urobilinogen) [facility] [id number] 21:59:00 Test Item Value Reference Range Interpretation Comments UA Nitrite (test code Negative (04/09/19 3:59 = UA Nitrite) PM) [facility] [id number] 21:59:00 Test Item Value Reference Range Interpretation Comments UA Leuk Est (test Negative (04/09/19 3:59 code = UA Leuk Est) PM) [facility] [id number] 21:59:00 Test Item Value Reference Range Interpretation Comments UA Sq Epi (test code = UA Sq Occasional /LPF Epi) [facility] [id number] 21:59:00 Test Item Value Reference Range Interpretation Comments UA WBC (test code = UA None Seen (04/09/19 3:59 WBC) PM) [facility] [id number] 21:59:00 Test Item Value Reference Range Interpretation Comments UA RBC (test code = 3-5 /HPF See_Comment [Automa shaun message] The UA RBC) system which ge nerated this result tra nsmitted reference range : <=2. The reference range was not used to interpr et this result as jackeline l/abnormal. [facility] [id number] 21:59:00 Test Item Value Reference Range Interpretation Comments UA Bacteria (test code = None Seen (04/09/19 UA Bacteria) 3:59 PM) [facility] [id number] 21:59:00 Test Item Value Reference Range Interpretation Comments Total CK (test code = Total CK) 93 12-191 [facility] [id number] 21:59:00 Test Item Value Reference Range Interpretation Comments Troponin-I (test code 0.03 See_Comment [Auto mated message] The = Troponin-I) system which g enerated this result transmit shaun reference range : <=0.40. The reference r lily was not used to interpr et this result as jackeline l/abnormal. [facility] UptownNexgenceAC [id number] 21:59:00 Test Item Value Reference Range Interpretation Comments Total CK (test code = Total CK) 93 12-191 [facility] CampusCARPark [facility] Services [id number] 21:59:00 Test Item Value Reference Range Interpretation Comments Troponin-I (test code 0.03 See_Comment [Auto mated message] The = Troponin-I) system which g enerated this result transmit shaun reference range : <=0.40. The reference r lily was not used to interpr et this result as jackeline l/abnormal. [facility] [id number] 21:59:00 Test Item Value Reference Range Interpretation Comments Glucose Lvl (test code = Glucose Lvl) 142 70-99 [facility] [id number] 21:59:00 Test Item Value Reference Range Interpretation Comments BUN (test code = BUN) 13 7-22 [facility] [id number] 21:59:00 Test Item Value Reference Range Interpretation Comments Creatinine Lvl (test code = Creatinine 0.79 0.50-1.40 Lvl) [facility] [id number] 21:59:00 Test Item Value Reference Range Interpretation Comments Sodium Lvl (test code = Sodium Lvl) 131 135-145 [facility] [id number] 21:59:00 Test Item Value Reference Range Interpretation Comments Potassium Lvl (test code = Potassium 3.4 3.5-5.1 Lvl) [facility] [id number] 21:59:00 Test Item Value Reference Range Interpretation Comments Chloride Lvl (test code = Chloride Lvl) 98 95-109 [facility] [id number] 21:59:00 Test Item Value Reference Range Interpretation Comments CO2 (test code = CO2) 33 24-32 [facility] [id number] 21:59:00 Test Item Value Reference Range Interpretation Comments Calcium Lvl (test code = Calcium Lvl) 9.3 8.5-10.5 [facility] [id number] 21:59:00 Test Item Value Reference Range Interpretation Comments Total Protein (test code = Total 8.1 6.4-8.4 Protein) [facility] fav[employer]it [id number] 21:59:00 Test Item Value Reference Range Interpretation Comments Albumin Lvl (test code = Albumin Lvl) 3.6 3.5-5.0 [facility] fav[employer]it [id number] 21:59:00 Test Item Value Reference Range Interpretation Comments ALT (test code = ALT) 18 See_Comment [Auto mated message] The system which ge nerated this result transmit shaun reference range : <=65. The reference range was not used to interpr et this result as jackeline l/abnormal. [facility] [id number] 21:59:00 Test Item Value Reference Range Interpretation Comments AST (test code = AST) 21 See_Comment [Auto mated message] The system which ge nerated this result transmit shaun reference range : <=37. The reference range was not used to interpr et this result as jackeline l/abnormal. [facility] [id number] 21:59:00 Test Item Value Reference Range Interpretation Comments Alk Phos (test code = Alk Phos) 95 39-136 [facility] [id number] 21:59:00 Test Item Value Reference Range Interpretation Comments Bili Total (test code = Bili Total) 0.5 0.2-1.3 [facility] [id number] 21:59:00 Test Item Value Reference Range Interpretation Comments AGAP (test code = AGAP) 3.4 10.0-20.0 [facility] [id number] 21:59:00 Test Item Value Reference Range Interpretation Comments B/C Ratio (test code = B/C Ratio) 16 1 6-25 [facility] [id number] 21:59:00 Test Item Value Reference Range Interpretation Comments Globulin (test code = Globulin) 4.5 2.7-4.2 [facility] [id number] 21:59:00 Test Item Value Reference Range Interpretation Comments A/G Ratio (test code = A/G Ratio) 0.8 1 0.7-1.6 [facility] [id number] 21:59:00 Test Item Value Reference Range Interpretation Comments Glucose Lvl (test code = Glucose Lvl) 142 70-99 [facility]2020-01-11 21:59:00 Test Item Value Reference Range Interpretation Comments eGFR (test code = eGFR) 78 [facility]2020-01-11 21:59:00 Test Item Value Reference Range Interpretation Comments Lipase Lvl (test code = Lipase Lvl) 112 73-393 [facility]2020-01-11 21:59:00 Test Item Value Reference Range Interpretation Comments Magnesium Lvl (test code = Magnesium 1.6 1.8-2.4 Lvl) [facility] [id number] 21:59:00 Test Item Value Reference Range Interpretation Comments WBC (test code = WBC) 7.6 3.7-10.4 [place] 107530-01-11 21:59:00 Test Item Value Reference Range Interpretation Comments RBC (test code = RBC) 4.45 4.20-5.40 [facility] [id number] 21:59:00 Test Item Value Reference Range Interpretation Comments Hgb (test code = Hgb) 13.6 12.0-16.0 [facility] [id number] 21:59:00 Test Item Value Reference Range Interpretation Comments Hct (test code = Hct) 40.3 36.0-48.0 [place] 107530-01-11 21:59:00 Test Item Value Reference Range Interpretation Comments MCV (test code = MCV) 90.6 80.0-98.0 [place] 107530-01-11 21:59:00 Test Item Value Reference Range Interpretation Comments MCH (test code = MCH) 30.5 pg 27.0-31.0 [place] 107530-01-11 21:59:00 Test Item Value Reference Range Interpretation Comments MCHC (test code = MCHC) 33.7 32.0-36.0 [place] 107530-01-11 21:59:00 Test Item Value Reference Range Interpretation Comments RDW (test code = RDW) 12.9 11.5-14.5 [place] 107530-01-11 21:59:00 Test Item Value Reference Range Interpretation Comments Platelet (test code = Platelet) 192 133-450 [facility] PasoMjwqdraESFLXGRGVR5365-76-41 21:59:00 Test Item Value Reference Range Interpretation Comments MPV (test code = MPV) 9.6 7.4-10.4 [facility] [id number] 21:59:00 Test Item Value Reference Range Interpretation Comments PT (test code = PT) 13.7 s 12.0-14.7 [facility] PasoOhldpkdQMHGLSZPVW3716-05-05 21:59:00 Test Item Value Reference Range Interpretation Comments INR (test code = INR) 1.05 1 0.85-1.17 [facility] Pa[id number] 21:59:00 Test Item Value Reference Range Interpretation Comments Segs (test code = Segs) 67.6 45.0-75.0 [place] 107530-01-11 21:59:00 Test Item Value Reference Range Interpretation Comments Lymphocytes (test code = Lymphocytes) 23.6 20.0-40.0 [facility] PasoIppuhbeTWYZGNVCXL2695-07-47 21:59:00 Test Item Value Reference Range Interpretation Comments Monocytes (test code = Monocytes) 5.8 2.0-12.0 [facility] Pa[id number] 21:59:00 Test Item Value Reference Range Interpretation Comments Eosinophils (test code = 2.5 See_Comment [A utomated message] The Eosinophils) system which ge nerated this result tra nsmitted reference range : <=4.0. The reference r lily was not used to int erpret this result as normal/abnormal . [facility] PasoNzwpxwkTNYSMNOFHW9705-53-78 21:59:00 Test Item Value Reference Range Interpretation Comments Basophils (test code = 0.5 See_Comment [Aut omated message] The Basophils) system which ge nerated this result tra nsmitted reference range : <=1.0. The reference r lily was not used to int erpret this result as normal/abnormal . [facility] PasoFiltqmaNWIWKEUXAY5675-41-09 21:59:00 Test Item Value Reference Range Interpretation Comments Neutrophils # (test code = Neutrophils 5.1 1.5-8.1 #) [facility] [id number] 21:59:00 Test Item Value Reference Range Interpretation Comments Lymphocytes # (test code = Lymphocytes 1.8 1.0-5.5 #) [facility] PasoRefaftbZTMWLNTIVL3893-02-24 21:59:00 Test Item Value Reference Range Interpretation Comments Monocytes # (test code 0.4 See_Comment [Aut omated message] The = Monocytes #) system which generated this result tra nsmitted reference range : <=0.8. The reference r lily was not used to int erpret this result as normal/abnormal . [facility] [id number] 21:59:00 Test Item Value Reference Range Interpretation Comments Eosinophils # (test code 0.2 See_Comment [A utomated message] The = Eosinophils #) system whic h generated this result tra nsmitted reference range : <=0.5. The reference r lily was not used to int erpret this result as normal/abnormal . [facility] [id number] 21:59:00 Test Item Value Reference Range Interpretation Comments UA Color (test code = Yellow *NA*(04/09/19 UA Color) 3:59 PM) [facility] [id number] 21:59:00 Test Item Value Reference Range Interpretation Comments UA Turbidity (test code = Clear (04/09/19 3:59 UA Turbidity) PM) [facility] [id number] 21:59:00 Test Item Value Reference Range Interpretation Comments UA Spec Grav (test code = UA Spec 1.010 1 Grav) [facility] [id number] 21:59:00 Test Item Value Reference Range Interpretation Comments UA pH (test code = UA pH) 6.0 1 5.0-8.0 [facility] [id number] 21:59:00 Test Item Value Reference Range Interpretation Comments UA Protein (test code Negative (04/09/19 3:59 = UA Protein) PM) [facility] [id number] 21:59:00 Test Item Value Reference Range Interpretation Comments UA Glucose (test code Negative (04/09/19 3:59 = UA Glucose) PM) [facility] [id number] 21:59:00 Test Item Value Reference Range Interpretation Comments UA Ketones (test code Negative *NA*(04/09/19 = UA Ketones) 3:59 PM) [facility] [id number] 21:59:00 Test Item Value Reference Range Interpretation Comments UA Bili (test code = Negative *NA*(04/09/19 UA Bili) 3:59 PM) [facility] [id number] 21:59:00 Test Item Value Reference Range Interpretation Comments UA Blood (test code = Trace *ABN*(04/09/19 UA Blood) 3:59 PM) [facility] [id number] 21:59:00 Test Item Value Reference Range Interpretation Comments UA Urobilinogen (test code = UA 0.2 0.1-1.0 Urobilinogen) [facility] [id number] 21:59:00 Test Item Value Reference Range Interpretation Comments UA Nitrite (test code Negative (04/09/19 3:59 = UA Nitrite) PM) [facility] [id number] 21:59:00 Test Item Value Reference Range Interpretation Comments UA Leuk Est (test Negative (04/09/19 3:59 code = UA Leuk Est) PM) [facility] [id number] 21:59:00 Test Item Value Reference Range Interpretation Comments UA Sq Epi (test code = UA Sq Occasional /LPF Epi) [facility] [id number] 21:59:00 Test Item Value Reference Range Interpretation Comments UA WBC (test code = UA None Seen (04/09/19 3:59 WBC) PM) [facility] [id number] 21:59:00 Test Item Value Reference Range Interpretation Comments UA RBC (test code = 3-5 /HPF See_Comment [Automa shaun message] The UA RBC) system which ge nerated this result tra nsmitted reference range : <=2. The reference range was not used to interpr et this result as jackeline l/abnormal. [facility] [id number] 21:59:00 Test Item Value Reference Range Interpretation Comments UA Bacteria (test code = None Seen (04/09/19 UA Bacteria) 3:59 PM) [facility]annCHEM [id number] 21:59:00 Test Item Value Reference Range Interpretation Comments BUN (test code = BUN) 13 7- [facility]annCHEM [id number] 21:59:00 Test Item Value Reference Range Interpretation Comments Creatinine Lvl (test code = Creatinine 0.79 0.50-1.40 Lvl) [facility] [id number] 21:59:00 Test Item Value Reference Range Interpretation Comments Total CK (test code = Total CK) 93 12-191 [facility] [id number] 21:59:00 Test Item Value Reference Range Interpretation Comments Troponin-I (test code 0.03 See_Comment [Auto mated message] The = Troponin-I) system which g enerated this result transmit shaun reference range : <=0.40. The reference r lily was not used to interpr et this result as jackeline l/abnormal. [facility] fav.or.it [id number] 21:59:00 Test Item Value Reference Range Interpretation Comments Glucose Lvl (test code = Glucose Lvl) 142 70-99 [facility] [id number] 21:59:00 Test Item Value Reference Range Interpretation Comments BUN (test code = BUN) 13 7-22 [facility] [id number] 21:59:00 Test Item Value Reference Range Interpretation Comments Creatinine Lvl (test code = Creatinine 0.79 0.50-1.40 Lvl) [facility] [id number] 21:59:00 Test Item Value Reference Range Interpretation Comments Sodium Lvl (test code = Sodium Lvl) 131 135-145 [facility] [id number] 21:59:00 Test Item Value Reference Range Interpretation Comments Sodium Lvl (test code = Sodium Lvl) 131 135-145 [facility] fav.or.it [id number] 21:59:00 Test Item Value Reference Range Interpretation Comments Potassium Lvl (test code = Potassium 3.4 3.5-5.1 Lvl) [facility] [id number] 21:59:00 Test Item Value Reference Range Interpretation Comments Chloride Lvl (test code = Chloride Lvl) 98 95-109 [facility] [id number] 21:59:00 Test Item Value Reference Range Interpretation Comments CO2 (test code = CO2) 33 24-32 [facility] [id number] 21:59:00 Test Item Value Reference Range Interpretation Comments Calcium Lvl (test code = Calcium Lvl) 9.3 8.5-10.5 [facility] [id number] 21:59:00 Test Item Value Reference Range Interpretation Comments Total Protein (test code = Total 8.1 6.4-8.4 Protein) [facility] [id number] 21:59:00 Test Item Value Reference Range Interpretation Comments Albumin Lvl (test code = Albumin Lvl) 3.6 3.5-5.0 [place] [id number] 21:59:00 Test Item Value Reference Range Interpretation Comments ALT (test code = ALT) 18 See_Comment [Auto mated message] The system which ge nerated this result transmit shaun reference range : <=65. The reference range was not used to interpr et this result as jackeline l/abnormal. [facility] [id number] 21:59:00 Test Item Value Reference Range Interpretation Comments AST (test code = AST) 21 See_Comment [Auto mated message] The system which ge nerated this result transmit shaun reference range : <=37. The reference range was not used to interpr et this result as jackeline l/abnormal. [facility] [id number] 21:59:00 Test Item Value Reference Range Interpretation Comments Alk Phos (test code = Alk Phos) 95 39-136 [facility] [id number] 21:59:00 Test Item Value Reference Range Interpretation Comments Bili Total (test code = Bili Total) 0.5 0.2-1.3 [facility] [id number] 21:59:00 Test Item Value Reference Range Interpretation Comments AGAP (test code = AGAP) 3.4 10.0-20.0 [facility] [id number] 21:59:00 Test Item Value Reference Range Interpretation Comments B/C Ratio (test code = B/C Ratio) 16 1 6-25 [facility] [id number] 21:59:00 Test Item Value Reference Range Interpretation Comments Globulin (test code = Globulin) 4.5 2.7-4.2 [facility] [id number] 21:59:00 Test Item Value Reference Range Interpretation Comments A/G Ratio (test code = A/G Ratio) 0.8 1 0.7-1.6 [facility] [id number] 21:59:00 Test Item Value Reference Range Interpretation Comments eGFR (test code = eGFR) 78 [facility] [id number] 21:59:00 Test Item Value Reference Range Interpretation Comments Lipase Lvl (test code = Lipase Lvl) 112 [address] [facility] [id number] 21:59:00 Test Item Value Reference Range Interpretation Comments Magnesium Lvl (test code = Magnesium 1.6 1.8-2.4 Lvl) [facility]NbykcoyQGLRTZVZHU5457-49-11 21:59:00 Test Item Value Reference Range Interpretation Comments WBC (test code = WBC) 7.6 3.7-10.4 [facility] [id number] 21:59:00 Test Item Value Reference Range Interpretation Comments RBC (test code = RBC) 4.45 4.20-5.40 [facility] [id number] 21:59:00 Test Item Value Reference Range Interpretation Comments Hgb (test code = Hgb) 13.6 12.0-16.0 [facility] PasoXhdofosRQCRVZXKHP0557-10-09 21:59:00 Test Item Value Reference Range Interpretation Comments Hct (test code = Hct) 40.3 36.0-48.0 [facility] [id number] 21:59:00 Test Item Value Reference Range Interpretation Comments MCV (test code = MCV) 90.6 80.0-98.0 [facility] Pa[id number] 21:59:00 Test Item Value Reference Range Interpretation Comments MCH (test code = MCH) 30.5 pg 27.0-31.0 [facility] [id number] 21:59:00 Test Item Value Reference Range Interpretation Comments MCHC (test code = MCHC) 33.7 32.0-36.0 [facility] [id number] 21:59:00 Test Item Value Reference Range Interpretation Comments RDW (test code = RDW) 12.9 11.5-14.5 [facility] [id number] 21:59:00 Test Item Value Reference Range Interpretation Comments Platelet (test code = Platelet) 192 133-450 [facility] [id number] 21:59:00 Test Item Value Reference Range Interpretation Comments MPV (test code = MPV) 9.6 7.4-10.4 [facility] [id number] 21:59:00 Test Item Value Reference Range Interpretation Comments PT (test code = PT) 13.7 s 12.0-14.7 [place] 107530-01-11 21:59:00 Test Item Value Reference Range Interpretation Comments INR (test code = INR) 1.05 1 0.85-1.17 [facility] [id number] 21:59:00 Test Item Value Reference Range Interpretation Comments Segs (test code = Segs) 67.6 45.0-75.0 [place] 107530-01-11 21:59:00 Test Item Value Reference Range Interpretation Comments Lymphocytes (test code = Lymphocytes) 23.6 20.0-40.0 [place] 107530-01-11 21:59:00 Test Item Value Reference Range Interpretation Comments Monocytes (test code = Monocytes) 5.8 2.0-12.0 [place] 107530-01-11 21:59:00 Test Item Value Reference Range Interpretation Comments Eosinophils (test code = 2.5 See_Comment [A utomated message] The Eosinophils) system which ge nerated this result tra nsmitted reference range : <=4.0. The reference r lily was not used to int erpret this result as normal/abnormal . [facility] [id number] 21:59:00 Test Item Value Reference Range Interpretation Comments Basophils (test code = 0.5 See_Comment [Aut omated message] The Basophils) system which ge nerated this result tra nsmitted reference range : <=1.0. The reference r lily was not used to int erpret this result as normal/abnormal . [facility] [id number] 21:59:00 Test Item Value Reference Range Interpretation Comments Neutrophils # (test code = Neutrophils 5.1 1.5-8.1 #) [facility] [id number] 21:59:00 Test Item Value Reference Range Interpretation Comments Lymphocytes # (test code = Lymphocytes 1.8 1.0-5.5 #) [place] 107530-01-11 21:59:00 Test Item Value Reference Range Interpretation Comments Monocytes # (test code 0.4 See_Comment [Aut omated message] The = Monocytes #) system which generated this result tra nsmitted reference range : <=0.8. The reference r lily was not used to int erpret this result as normal/abnormal . [place] 107530-01-11 21:59:00 Test Item Value Reference Range Interpretation Comments Eosinophils # (test code 0.2 See_Comment [A utomated message] The = Eosinophils #) system whic h generated this result tra nsmitted reference range : <=0.5. The reference r lily was not used to int erpret this result as normal/abnormal . [facility] AND [id number] 21:59:00 Test Item Value Reference Range Interpretation Comments UA Color (test code = Yellow *NA*(04/09/19 UA Color) 3:59 PM) [facility] [id number] 21:59:00 Test Item Value Reference Range Interpretation Comments UA Turbidity (test code = Clear (04/09/19 3:59 UA Turbidity) PM) [facility] AND [id number] 21:59:00 Test Item Value Reference Range Interpretation Comments UA Spec Grav (test code = UA Spec 1.010 1 Grav) [facility] AND [id number] 21:59:00 Test Item Value Reference Range Interpretation Comments UA pH (test code = UA pH) 6.0 1 5.0-8.0 [facility] AND [id number] 21:59:00 Test Item Value Reference Range Interpretation Comments UA Protein (test code Negative (04/09/19 3:59 = UA Protein) PM) [facility] AND [id number] 21:59:00 Test Item Value Reference Range Interpretation Comments UA Glucose (test code Negative (04/09/19 3:59 = UA Glucose) PM) [facility] [id number] 21:59:00 Test Item Value Reference Range Interpretation Comments UA Ketones (test code Negative *NA*(04/09/19 = UA Ketones) 3:59 PM) [facility] [id number] 21:59:00 Test Item Value Reference Range Interpretation Comments UA Bili (test code = Negative *NA*(04/09/19 UA Bili) 3:59 PM) [facility] [id number] 21:59:00 Test Item Value Reference Range Interpretation Comments UA Blood (test code = Trace *ABN*(04/09/19 UA Blood) 3:59 PM) [facility] [id number] 21:59:00 Test Item Value Reference Range Interpretation Comments UA Urobilinogen (test code = UA 0.2 0.1-1.0 Urobilinogen) [facility] [id number] 21:59:00 Test Item Value Reference Range Interpretation Comments UA Nitrite (test code Negative (04/09/19 3:59 = UA Nitrite) PM) [facility] [id number] 21:59:00 Test Item Value Reference Range Interpretation Comments UA Leuk Est (test Negative (04/09/19 3:59 code = UA Leuk Est) PM) [facility] [id number] 21:59:00 Test Item Value Reference Range Interpretation Comments UA Sq Epi (test code = UA Sq Occasional /LPF Epi) [facility] [id number] 21:59:00 Test Item Value Reference Range Interpretation Comments UA WBC (test code = UA None Seen (04/09/19 3:59 WBC) PM) [facility] [id number] 21:59:00 Test Item Value Reference Range Interpretation Comments UA RBC (test code = 3-5 /HPF See_Comment [Automa shaun message] The UA RBC) system which ge nerated this result tra nsmitted reference range : <=2. The reference range was not used to interpr et this result as jackeline l/abnormal. [facility] [id number] 21:59:00 Test Item Value Reference Range Interpretation Comments UA Bacteria (test code = None Seen (04/09/19 UA Bacteria) 3:59 PM) [facility]annCHEM [id number] 21:59:00 Test Item Value Reference Range Interpretation Comments Potassium Lvl (test code = Potassium 3.4 3.5-5.1 Lvl) [facility]CHE[facility] [id number] 21:59:00 Test Item Value Reference Range Interpretation Comments Chloride Lvl (test code = Chloride Lvl) 98 95-109 [facility]annCHE[facility] [id number] 21:59:00 Test Item Value Reference Range Interpretation Comments CO2 (test code = CO2) 33 24-32 [facility] [id number] 21:59:00 Test Item Value Reference Range Interpretation Comments Total CK (test code = Total CK) 93 12-191 [facility] [id number] 21:59:00 Test Item Value Reference Range Interpretation Comments Troponin-I (test code 0.03 See_Comment [Auto mated message] The = Troponin-I) system which g enerated this result transmit shaun reference range : <=0.40. The reference r lily was not used to interpr et this result as jackeline l/abnormal. [facility] [id number] 21:59:00 Test Item Value Reference Range Interpretation Comments Glucose Lvl (test code = Glucose Lvl) 142 70-99 [facility] [id number] 21:59:00 Test Item Value Reference Range Interpretation Comments BUN (test code = BUN) 13 7-22 [facility] [id number] 21:59:00 Test Item Value Reference Range Interpretation Comments Creatinine Lvl (test code = Creatinine 0.79 0.50-1.40 Lvl) [facility] [id number] 21:59:00 Test Item Value Reference Range Interpretation Comments Sodium Lvl (test code = Sodium Lvl) 131 135-145 [facility] [id number] 21:59:00 Test Item Value Reference Range Interpretation Comments Potassium Lvl (test code = Potassium 3.4 3.5-5.1 Lvl) [facility] [id number] 21:59:00 Test Item Value Reference Range Interpretation Comments Chloride Lvl (test code = Chloride Lvl) 98 95-109 [facility] [id number] 21:59:00 Test Item Value Reference Range Interpretation Comments CO2 (test code = CO2) 33 24-32 [facility] [id number] 21:59:00 Test Item Value Reference Range Interpretation Comments Calcium Lvl (test code = Calcium Lvl) 9.3 8.5-10.5 [facility] [id number] 21:59:00 Test Item Value Reference Range Interpretation Comments Total Protein (test code = Total 8.1 6.4-8.4 Protein) [facility]2020-01-11 21:59:00 Test Item Value Reference Range Interpretation Comments Albumin Lvl (test code = Albumin Lvl) 3.6 3.5-5.0 [facility] [id number] 21:59:00 Test Item Value Reference Range Interpretation Comments ALT (test code = ALT) 18 See_Comment [Auto mated message] The system which ge nerated this result transmit shaun reference range : <=65. The reference range was not used to interpr et this result as jackeline l/abnormal. [facility] fav.or.it [id number] 21:59:00 Test Item Value Reference Range Interpretation Comments AST (test code = AST) 21 See_Comment [Auto mated message] The system which ge nerated this result transmit shaun reference range : <=37. The reference range was not used to interpr et this result as jackeline l/abnormal. [facility] fav.or.it [id number] 21:59:00 Test Item Value Reference Range Interpretation Comments Alk Phos (test code = Alk Phos) 95 39-136 [facility] fav.or.it [id number] 21:59:00 Test Item Value Reference Range Interpretation Comments Bili Total (test code = Bili Total) 0.5 0.2-1.3 [facility] fav.or.it [id number] 21:59:00 Test Item Value Reference Range Interpretation Comments AGAP (test code = AGAP) 3.4 10.0-20.0 [facility] fav.or.it [id number] 21:59:00 Test Item Value Reference Range Interpretation Comments B/C Ratio (test code = B/C Ratio) 16 1 6-25 [facility] fav.or.it [id number] 21:59:00 Test Item Value Reference Range Interpretation Comments Globulin (test code = Globulin) 4.5 2.7-4.2 [facility] fav.or.it [id number] 21:59:00 Test Item Value Reference Range Interpretation Comments A/G Ratio (test code = A/G Ratio) 0.8 1 0.7-1.6 [facility] fav.or.it [id number] 21:59:00 Test Item Value Reference Range Interpretation Comments eGFR (test code = eGFR) 78 [facility] fav.or.it [id number] 21:59:00 Test Item Value Reference Range Interpretation Comments Lipase Lvl (test code = Lipase Lvl) 112 73-393 [facility] fav.or.it [id number] 21:59:00 Test Item Value Reference Range Interpretation Comments Magnesium Lvl (test code = Magnesium 1.6 1.8-2.4 Lvl) [facility] [id number] 21:59:00 Test Item Value Reference Range Interpretation Comments WBC (test code = WBC) 7.6 3.7-10.4 [facility] [id number] 21:59:00 Test Item Value Reference Range Interpretation Comments RBC (test code = RBC) 4.45 4.20-5.40 [facility] [id number] 21:59:00 Test Item Value Reference Range Interpretation Comments Hgb (test code = Hgb) 13.6 12.0-16.0 [place] 107530-01-11 21:59:00 Test Item Value Reference Range Interpretation Comments Hct (test code = Hct) 40.3 36.0-48.0 [facility] [id number] 21:59:00 Test Item Value Reference Range Interpretation Comments MCV (test code = MCV) 90.6 80.0-98.0 [place] 107530-01-11 21:59:00 Test Item Value Reference Range Interpretation Comments MCH (test code = MCH) 30.5 pg 27.0-31.0 [facility] [id number] 21:59:00 Test Item Value Reference Range Interpretation Comments MCHC (test code = MCHC) 33.7 32.0-36.0 [facility] [id number] 21:59:00 Test Item Value Reference Range Interpretation Comments RDW (test code = RDW) 12.9 11.5-14.5 [facility] PasoIzszewrVPZJGPWVAO3238-28-10 21:59:00 Test Item Value Reference Range Interpretation Comments Platelet (test code = Platelet) 192 133-450 [facility] [id number] 21:59:00 Test Item Value Reference Range Interpretation Comments MPV (test code = MPV) 9.6 7.4-10.4 [place] 107530-01-11 21:59:00 Test Item Value Reference Range Interpretation Comments PT (test code = PT) 13.7 s 12.0-14.7 [place] 107530-01-11 21:59:00 Test Item Value Reference Range Interpretation Comments INR (test code = INR) 1.05 1 0.85-1.17 [facility] PasoEuwzhjfQRFQVFTTVT9320-57-54 21:59:00 Test Item Value Reference Range Interpretation Comments Segs (test code = Segs) 67.6 45.0-75.0 [place] 107530-01-11 21:59:00 Test Item Value Reference Range Interpretation Comments Lymphocytes (test code = Lymphocytes) 23.6 20.0-40.0 [place] 107530-01-11 21:59:00 Test Item Value Reference Range Interpretation Comments Monocytes (test code = Monocytes) 5.8 2.0-12.0 [place] 107530-01-11 21:59:00 Test Item Value Reference Range Interpretation Comments Eosinophils (test code = 2.5 See_Comment [A utomated message] The Eosinophils) system which ge nerated this result tra nsmitted reference range : <=4.0. The reference r lily was not used to int erpret this result as normal/abnormal . [place] 107530-01-11 21:59:00 Test Item Value Reference Range Interpretation Comments Basophils (test code = 0.5 See_Comment [Aut omated message] The Basophils) system which ge nerated this result tra nsmitted reference range : <=1.0. The reference r lily was not used to int erpret this result as normal/abnormal . [place] 107530-01-11 21:59:00 Test Item Value Reference Range Interpretation Comments Neutrophils # (test code = Neutrophils 5.1 1.5-8.1 #) [place] 107530-01-11 21:59:00 Test Item Value Reference Range Interpretation Comments Lymphocytes # (test code = Lymphocytes 1.8 1.0-5.5 #) [place] 107530-01-11 21:59:00 Test Item Value Reference Range Interpretation Comments Monocytes # (test code 0.4 See_Comment [Aut omated message] The = Monocytes #) system which generated this result tra nsmitted reference range : <=0.8. The reference r lily was not used to int erpret this result as normal/abnormal . [place] 107530-01-11 21:59:00 Test Item Value Reference Range Interpretation Comments Eosinophils # (test code 0.2 See_Comment [A utomated message] The = Eosinophils #) system [facility] h generated this result tra nsmitted reference range : <=0.5. The reference r lily was not used to int erpret this result as normal/abnormal . [facility] AND [id number] 21:59:00 Test Item Value Reference Range Interpretation Comments UA Color (test code = Yellow *NA*(04/09/19 UA Color) 3:59 PM) [facility] AND [id number] 21:59:00 Test Item Value Reference Range Interpretation Comments UA Turbidity (test code = Clear (04/09/19 3:59 UA Turbidity) PM) [facility] AND [id number] 21:59:00 Test Item Value Reference Range Interpretation Comments UA Spec Grav (test code = UA Spec 1.010 1 Grav) [facility] AND [id number] 21:59:00 Test Item Value Reference Range Interpretation Comments UA pH (test code = UA pH) 6.0 1 5.0-8.0 [facility] AND [id number] 21:59:00 Test Item Value Reference Range Interpretation Comments UA Protein (test code Negative (04/09/19 3:59 = UA Protein) PM) [facility] AND [id number] 21:59:00 Test Item Value Reference Range Interpretation Comments UA Glucose (test code Negative (04/09/19 3:59 = UA Glucose) PM) [facility] AND [id number] 21:59:00 Test Item Value Reference Range Interpretation Comments UA Ketones (test code Negative *NA*(04/09/19 = UA Ketones) 3:59 PM) [facility] AND [id number] 21:59:00 Test Item Value Reference Range Interpretation Comments UA Bili (test code = Negative *NA*(04/09/19 UA Bili) 3:59 PM) [facility] AND [id number] 21:59:00 Test Item Value Reference Range Interpretation Comments UA Blood (test code = Trace *ABN*(04/09/19 UA Blood) 3:59 PM) [facility] AND [id number] 21:59:00 Test Item Value Reference Range Interpretation Comments UA Urobilinogen (test code = UA 0.2 0.1-1.0 Urobilinogen) [facility] AND [id number] 21:59:00 Test Item Value Reference Range Interpretation Comments UA Nitrite (test code Negative (04/09/19 3:59 = UA Nitrite) PM) [facility] [id number] 21:59:00 Test Item Value Reference Range Interpretation Comments UA Leuk Est (test Negative (04/09/19 3:59 code = UA Leuk Est) PM) [facility] [id number] 21:59:00 Test Item Value Reference Range Interpretation Comments UA Sq Epi (test code = UA Sq Occasional /LPF Epi) [facility] [id number] 21:59:00 Test Item Value Reference Range Interpretation Comments UA WBC (test code = UA None Seen (04/09/19 3:59 WBC) PM) [facility] [id number] 21:59:00 Test Item Value Reference Range Interpretation Comments UA RBC (test code = 3-5 /HPF See_Comment [Automa shaun message] The UA RBC) system which ge nerated this result tra nsmitted reference range : <=2. The reference range was not used to interpr et this result as jackeline l/abnormal. [facility] [id number] 21:59:00 Test Item Value Reference Range Interpretation Comments UA Bacteria (test code = None Seen (04/09/19 UA Bacteria) 3:59 PM) [facility] fav.or.it [id number] 21:59:00 Test Item Value Reference Range Interpretation Comments Calcium Lvl (test code = Calcium Lvl) 9.3 8.5-10.5 [facility] [employer] [id number] 21:59:00 Test Item Value Reference Range Interpretation Comments Total Protein (test code = Total 8.1 6.4-8.4 Protein) [facility] fav[employer]or.it [id number] 21:59:00 Test Item Value Reference Range Interpretation Comments Albumin Lvl (test code = Albumin Lvl) 3.6 3.5-5.0 [facility] [id number] 21:59:00 Test Item Value Reference Range Interpretation Comments Total CK (test code = Total CK) 93 12-191 [facility] [id number] 21:59:00 Test Item Value Reference Range Interpretation Comments Troponin-I (test code 0.03 See_Comment [Auto mated message] The = Troponin-I) system which g enerated this result transmit shaun reference range : <=0.40. The reference r lily was not used to interpr et this result as jackeline l/abnormal. [place] 626920-01-11 21:59:00 Test Item Value Reference Range Interpretation Comments Glucose Lvl (test code = Glucose Lvl) 142 70-99 [place] 626920-01-11 21:59:00 Test Item Value Reference Range Interpretation Comments BUN (test code = BUN) 13 7-22 [place] 626920-01-11 21:59:00 Test Item Value Reference Range Interpretation Comments Creatinine Lvl (test code = Creatinine 0.79 0.50-1.40 Lvl) [place] 626920-01-11 21:59:00 Test Item Value Reference Range Interpretation Comments Sodium Lvl (test code = Sodium Lvl) 131 135-145 [place] 626920-01-11 21:59:00 Test Item Value Reference Range Interpretation Comments Potassium Lvl (test code = Potassium 3.4 3.5-5.1 Lvl) [place] 626920-01-11 21:59:00 Test Item Value Reference Range Interpretation Comments Chloride Lvl (test code = Chloride Lvl) 98 95-109 [place] 626920-01-11 21:59:00 Test Item Value Reference Range Interpretation Comments CO2 (test code = CO2) 33 24-32 [place] 626920-01-11 21:59:00 Test Item Value Reference Range Interpretation Comments Calcium Lvl (test code = Calcium Lvl) 9.3 8.5-10.5 [place] 626920-01-11 21:59:00 Test Item Value Reference Range Interpretation Comments Total Protein (test code = Total 8.1 6.4-8.4 Protein) [place] 626920-01-11 21:59:00 Test Item Value Reference Range Interpretation Comments Albumin Lvl (test code = Albumin Lvl) 3.6 3.5-5.0 [place] 626920-01-11 21:59:00 Test Item Value Reference Range Interpretation Comments ALT (test code = ALT) 18 See_Comment [Auto mated message] The system which ge nerated this result transmit shaun reference range : <=65. The reference range was not used to interpr et this result as jackeline l/abnormal. [facility]2020-01-11 21:59:00 Test Item Value Reference Range Interpretation Comments AST (test code = AST) 21 See_Comment [Auto mated message] The system which ge nerated this result transmit shaun reference range : <=37. The reference range was not used to interpr et this result as jackeline l/abnormal. [facility]2020-01-11 21:59:00 Test Item Value Reference Range Interpretation Comments Alk Phos (test code = Alk Phos) 95 39-136 [facility]2020-01-11 21:59:00 Test Item Value Reference Range Interpretation Comments Bili Total (test code = Bili Total) 0.5 0.2-1.3 [place] 626920-01-11 21:59:00 Test Item Value Reference Range Interpretation Comments AGAP (test code = AGAP) 3.4 10.0-20.0 [place] 626920-01-11 21:59:00 Test Item Value Reference Range Interpretation Comments B/C Ratio (test code = B/C Ratio) 16 1 6-25 [place] 626920-01-11 21:59:00 Test Item Value Reference Range Interpretation Comments Globulin (test code = Globulin) 4.5 2.7-4.2 [place] 626920-01-11 21:59:00 Test Item Value Reference Range Interpretation Comments A/G Ratio (test code = A/G Ratio) 0.8 1 0.7-1.6 [place] 626920-01-11 21:59:00 Test Item Value Reference Range Interpretation Comments eGFR (test code = eGFR) 78 [place] 626920-01-11 21:59:00 Test Item Value Reference Range Interpretation Comments Lipase Lvl (test code = Lipase Lvl) 112 73-393 [place] 626920-01-11 21:59:00 Test Item Value Reference Range Interpretation Comments Magnesium Lvl (test code = Magnesium 1.6 1.8-2.4 Lvl) [place] 107530-01-11 21:59:00 Test Item Value Reference Range Interpretation Comments WBC (test code = WBC) 7.6 3.7-10.4 [facility]QfayvktXKALLTLFUQ1137-58-25 21:59:00 Test Item Value Reference Range Interpretation Comments RBC (test code = RBC) 4.45 4.20-5.40 [facility] [id number] 21:59:00 Test Item Value Reference Range Interpretation Comments Hgb (test code = Hgb) 13.6 12.0-16.0 [place] 107530-01-11 21:59:00 Test Item Value Reference Range Interpretation Comments Hct (test code = Hct) 40.3 36.0-48.0 [facility] PasoWrlbaniTXPZSNYYNP2300-06-42 21:59:00 Test Item Value Reference Range Interpretation Comments MCV (test code = MCV) 90.6 80.0-98.0 [facility] PasoObpzfcfZLPAIBQESZ2651-31-99 21:59:00 Test Item Value Reference Range Interpretation Comments MCH (test code = MCH) 30.5 pg 27.0-31.0 [facility] PasoJjutgvqITADCVZGGB1783-46-27 21:59:00 Test Item Value Reference Range Interpretation Comments MCHC (test code = MCHC) 33.7 32.0-36.0 [facility] PasoHefyweyZGAYXXXAXA8099-81-73 21:59:00 Test Item Value Reference Range Interpretation Comments RDW (test code = RDW) 12.9 11.5-14.5 [facility] PasoSwbzxwuVMCAKCJAXJ8031-60-42 21:59:00 Test Item Value Reference Range Interpretation Comments Platelet (test code = Platelet) 192 133-450 [facility] PasoXcsurmdYPNUIFDPOS5884-06-94 21:59:00 Test Item Value Reference Range Interpretation Comments MPV (test code = MPV) 9.6 7.4-10.4 [facility] PasoHjatlhzHTAJLKSNZA0070-85-92 21:59:00 Test Item Value Reference Range Interpretation Comments PT (test code = PT) 13.7 s 12.0-14.7 [place] 107530-01-11 21:59:00 Test Item Value Reference Range Interpretation Comments INR (test code = INR) 1.05 1 0.85-1.17 [place] 107530-01-11 21:59:00 Test Item Value Reference Range Interpretation Comments Segs (test code = Segs) 67.6 45.0-75.0 [facility] PasoGzranmpVQLBTIZATH1691-24-43 21:59:00 Test Item Value Reference Range Interpretation Comments Lymphocytes (test code = Lymphocytes) 23.6 20.0-40.0 [facility] PasoTrfxcxtKOXLZTTEEY5511-10-04 21:59:00 Test Item Value Reference Range Interpretation Comments Monocytes (test code = Monocytes) 5.8 2.0-12.0 [facility] PasoZuidxsmUSUFGMJTED9392-70-31 21:59:00 Test Item Value Reference Range Interpretation Comments Eosinophils (test code = 2.5 See_Comment [A utomated message] The Eosinophils) system which ge nerated this result tra nsmitted reference range : <=4.0. The reference r lily was not used to int erpret this result as normal/abnormal . [facility] PasoZaocmvjWXNZSVKNML7662-75-50 21:59:00 Test Item Value Reference Range Interpretation Comments Basophils (test code = 0.5 See_Comment [Aut omated message] The Basophils) system which ge nerated this result tra nsmitted reference range : <=1.0. The reference r lily was not used to int erpret this result as normal/abnormal . [facility] PasoAocpakpYMWQKIAAKV8312-07-14 21:59:00 Test Item Value Reference Range Interpretation Comments Neutrophils # (test code = Neutrophils 5.1 1.5-8.1 #) [facility] PasoWbszmneMGMCNPTVBU8780-69-24 21:59:00 Test Item Value Reference Range Interpretation Comments Lymphocytes # (test code = Lymphocytes 1.8 1.0-5.5 #) [facility] PasoIsscciqFYDUCPYFCT6438-61-22 21:59:00 Test Item Value Reference Range Interpretation Comments Monocytes # (test code 0.4 See_Comment [Aut omated message] The = Monocytes #) system which generated this result tra nsmitted reference range : <=0.8. The reference r lily was not used to int erpret this result as normal/abnormal . [facility] PasoBddonaaMKCGAVNDHR4025-25-12 21:59:00 Test Item Value Reference Range Interpretation Comments Eosinophils # (test code 0.2 See_Comment [A utomated message] The = Eosinophils #) system whic h generated this result tra nsmitted reference range : <=0.5. The reference r lily was not used to int erpret this result as normal/abnormal . [facility]2020-01-11 21:59:00 Test Item Value Reference Range Interpretation Comments UA Color (test code = Yellow *NA*(04/09/19 UA Color) 3:59 PM) [facility] [id number] 21:59:00 Test Item Value Reference Range Interpretation Comments UA Turbidity (test code = Clear (04/09/19 3:59 UA Turbidity) PM) [facility] [id number] 21:59:00 Test Item Value Reference Range Interpretation Comments UA Spec Grav (test code = UA Spec 1.010 1 Grav) [facility] [id number] 21:59:00 Test Item Value Reference Range Interpretation Comments UA pH (test code = UA pH) 6.0 1 5.0-8.0 [facility] [id number] 21:59:00 Test Item Value Reference Range Interpretation Comments UA Protein (test code Negative (04/09/19 3:59 = UA Protein) PM) [facility] AND [id number] 21:59:00 Test Item Value Reference Range Interpretation Comments UA Glucose (test code Negative (04/09/19 3:59 = UA Glucose) PM) [facility] AND [id number] 21:59:00 Test Item Value Reference Range Interpretation Comments UA Ketones (test code Negative *NA*(04/09/19 = UA Ketones) 3:59 PM) [facility] AND [id number] 21:59:00 Test Item Value Reference Range Interpretation Comments UA Bili (test code = Negative *NA*(04/09/19 UA Bili) 3:59 PM) [facility] AND [id number] 21:59:00 Test Item Value Reference Range Interpretation Comments UA Blood (test code = Trace *ABN*(04/09/19 UA Blood) 3:59 PM) [facility] [id number] 21:59:00 Test Item Value Reference Range Interpretation Comments UA Urobilinogen (test code = UA 0.2 0.1-1.0 Urobilinogen) [facility] [id number] 21:59:00 Test Item Value Reference Range Interpretation Comments UA Nitrite (test code Negative (04/09/19 3:59 = UA Nitrite) PM) [facility] [id number] 21:59:00 Test Item Value Reference Range Interpretation Comments UA Leuk Est (test Negative (04/09/19 3:59 code = UA Leuk Est) PM) [facility] [id number] 21:59:00 Test Item Value Reference Range Interpretation Comments UA Sq Epi (test code = UA Sq Occasional /LPF Epi) [facility] [id number] 21:59:00 Test Item Value Reference Range Interpretation Comments UA WBC (test code = UA None Seen (04/09/19 3:59 WBC) PM) [facility] [id number] 21:59:00 Test Item Value Reference Range Interpretation Comments UA RBC (test code = 3-5 /HPF See_Comment [Automa shaun message] The UA RBC) system which ge nerated this result tra nsmitted reference range : <=2. The reference range was not used to interpr et this result as jackeline l/abnormal. [facility] [id number] 21:59:00 Test Item Value Reference Range Interpretation Comments UA Bacteria (test code = None Seen (04/09/19 UA Bacteria) 3:59 PM) [facility] fav[facility]or[facility]it [id number] 21:59:00 Test Item Value Reference Range Interpretation Comments ALT (test code = ALT) 18 See_Comment [Auto mated message] The system which ge nerated this result transmit shaun reference range : <=65. The reference range was not used to interpr et this result as jackeline l/abnormal. [facility] fav[facility]or[facility]it [id number] 21:59:00 Test Item Value Reference Range Interpretation Comments AST (test code = AST) 21 See_Comment [Auto mated message] The system which ge nerated this result transmit shaun reference range : <=37. The reference range was not used to interpr et this result as jackeline l/abnormal. [facility]annCARD[facility] [id number] 21:59:00 Test Item Value Reference Range Interpretation Comments Total CK (test code = Total CK) 93 12-191 [facility]annCARD[facility] [id number] 21:59:00 Test Item Value Reference Range Interpretation Comments Troponin-I (test code 0.03 See_Comment [Auto mated message] The = Troponin-I) system which g enerated this result transmit shaun reference range : <=0.40. The reference r lily was not used to interpr et this result as jackeline l/abnormal. [place] 626920-01-11 21:59:00 Test Item Value Reference Range Interpretation Comments Glucose Lvl (test code = Glucose Lvl) 142 70-99 [place] 626920-01-11 21:59:00 Test Item Value Reference Range Interpretation Comments BUN (test code = BUN) 13 7-22 [place] 626920-01-11 21:59:00 Test Item Value Reference Range Interpretation Comments Alk Phos (test code = Alk Phos) 95 39-136 [place] 626920-01-11 21:59:00 Test Item Value Reference Range Interpretation Comments Creatinine Lvl (test code = Creatinine 0.79 0.50-1.40 Lvl) [facility]2020-01-11 21:59:00 Test Item Value Reference Range Interpretation Comments Sodium Lvl (test code = Sodium Lvl) 131 135-145 [place] 626920-01-11 21:59:00 Test Item Value Reference Range Interpretation Comments Potassium Lvl (test code = Potassium 3.4 3.5-5.1 Lvl) [facility]2020-01-11 21:59:00 Test Item Value Reference Range Interpretation Comments Chloride Lvl (test code = Chloride Lvl) 98 95-109 [facility]2020-01-11 21:59:00 Test Item Value Reference Range Interpretation Comments CO2 (test code = CO2) 33 24-32 [place] 626920-01-11 21:59:00 Test Item Value Reference Range Interpretation Comments Calcium Lvl (test code = Calcium Lvl) 9.3 8.5-10.5 [place] 626920-01-11 21:59:00 Test Item Value Reference Range Interpretation Comments Total Protein (test code = Total 8.1 6.4-8.4 Protein) [place] 626920-01-11 21:59:00 Test Item Value Reference Range Interpretation Comments Albumin Lvl (test code = Albumin Lvl) 3.6 3.5-5.0 [place] 626920-01-11 21:59:00 Test Item Value Reference Range Interpretation Comments ALT (test code = ALT) 18 See_Comment [Auto mated message] The system which ge nerated this result transmit shaun reference range : <=65. The reference range was not used to interpr et this result as jackeline l/abnormal. [facility] fav[facility]or[facility]it [id number] 21:59:00 Test Item Value Reference Range Interpretation Comments AST (test code = AST) 21 See_Comment [Auto mated message] The system which ge nerated this result transmit shaun reference range : <=37. The reference range was not used to interpr et this result as jackeline l/abnormal. [facility] fav[facility]it [id number] 21:59:00 Test Item Value Reference Range Interpretation Comments Bili Total (test code = Bili Total) 0.5 0.2-1.3 [facility]it [id number] 21:59:00 Test Item Value Reference Range Interpretation Comments Alk Phos (test code = Alk Phos) 95 39-136 [facility] fav[facility]it [id number] 21:59:00 Test Item Value Reference Range Interpretation Comments Bili Total (test code = Bili Total) 0.5 0.2-1.3 [facility] fav[facility]it [id number] 21:59:00 Test Item Value Reference Range Interpretation Comments AGAP (test code = AGAP) 3.4 10.0-20.0 [facility] fav[facility].it [id number] 21:59:00 Test Item Value Reference Range Interpretation Comments B/C Ratio (test code = B/C Ratio) 16 1 6-25 [facility]ownAdQu[facility] [id number] 21:59:00 Test Item Value Reference Range Interpretation Comments Globulin (test code = Globulin) 4.5 2.7-4.2 [facility]it [id number] 21:59:00 Test Item Value Reference Range Interpretation Comments A/G Ratio (test code = A/G Ratio) 0.8 1 0.7-1.6 [facility] [id number] 21:59:00 Test Item Value Reference Range Interpretation Comments eGFR (test code = eGFR) 78 [facility]it [id number] 21:59:00 Test Item Value Reference Range Interpretation Comments Lipase Lvl (test code = Lipase Lvl) 112 73-393 [facility] fav[facility]it [id number] 21:59:00 Test Item Value Reference Range Interpretation Comments Magnesium Lvl (test code = Magnesium 1.6 1.8-2.4 Lvl) [facility] PasoCmduvxpBSZSPOIRPG2284-12-04 21:59:00 Test Item Value Reference Range Interpretation Comments WBC (test code = WBC) 7.6 3.7-10.4 [facility]2020-01-11 21:59:00 Test Item Value Reference Range Interpretation Comments AGAP (test code = AGAP) 3.4 10.0-20.0 [facility] PasoHuvqzixDUGRBXMHEL4553-62-35 21:59:00 Test Item Value Reference Range Interpretation Comments RBC (test code = RBC) 4.45 4.20-5.40 [facility] [id number] 21:59:00 Test Item Value Reference Range Interpretation Comments Hgb (test code = Hgb) 13.6 12.0-16.0 [facility] PasoHktdrtvQZZZDRFGUT5290-53-83 21:59:00 Test Item Value Reference Range Interpretation Comments Hct (test code = Hct) 40.3 36.0-48.0 [facility] PasoJljispqBWLJBLLDFB4924-95-60 21:59:00 Test Item Value Reference Range Interpretation Comments MCV (test code = MCV) 90.6 80.0-98.0 [facility] PasoWacrcpeLVQDTZKUTX8667-62-61 21:59:00 Test Item Value Reference Range Interpretation Comments MCH (test code = MCH) 30.5 pg 27.0-31.0 [facility] PasoWbgmubtWHWZITRMRQ3728-04-30 21:59:00 Test Item Value Reference Range Interpretation Comments MCHC (test code = MCHC) 33.7 32.0-36.0 [facility] PasoJvjwtnbIGEECQYIGC9658-50-71 21:59:00 Test Item Value Reference Range Interpretation Comments RDW (test code = RDW) 12.9 11.5-14.5 [facility] [id number] 21:59:00 Test Item Value Reference Range Interpretation Comments Platelet (test code = Platelet) 192 133-450 [facility] [id number] 21:59:00 Test Item Value Reference Range Interpretation Comments MPV (test code = MPV) 9.6 7.4-10.4 [facility] PasoQguthjjNWUVOOXOWJ7057-75-40 21:59:00 Test Item Value Reference Range Interpretation Comments PT (test code = PT) 13.7 s 12.0-14.7 [facility]2020-01-11 21:59:00 Test Item Value Reference Range Interpretation Comments B/C Ratio (test code = B/C Ratio) 16 1 6-25 [place] 107530-01-11 21:59:00 Test Item Value Reference Range Interpretation Comments INR (test code = INR) 1.05 1 0.85-1.17 [place] 107530-01-11 21:59:00 Test Item Value Reference Range Interpretation Comments Segs (test code = Segs) 67.6 45.0-75.0 [place] 107530-01-11 21:59:00 Test Item Value Reference Range Interpretation Comments Lymphocytes (test code = Lymphocytes) 23.6 20.0-40.0 [place] 107530-01-11 21:59:00 Test Item Value Reference Range Interpretation Comments Monocytes (test code = Monocytes) 5.8 2.0-12.0 [place] 107530-01-11 21:59:00 Test Item Value Reference Range Interpretation Comments Eosinophils (test code = 2.5 See_Comment [A utomated message] The Eosinophils) system which ge nerated this result tra nsmitted reference range : <=4.0. The reference r lily was not used to int erpret this result as normal/abnormal . [facility] [id number] 21:59:00 Test Item Value Reference Range Interpretation Comments Basophils (test code = 0.5 See_Comment [Aut omated message] The Basophils) system which ge nerated this result tra nsmitted reference range : <=1.0. The reference r lily was not used to int erpret this result as normal/abnormal . [place] 107530-01-11 21:59:00 Test Item Value Reference Range Interpretation Comments Neutrophils # (test code = Neutrophils 5.1 1.5-8.1 #) [place] 107530-01-11 21:59:00 Test Item Value Reference Range Interpretation Comments Lymphocytes # (test code = Lymphocytes 1.8 1.0-5.5 #) [place] 107530-01-11 21:59:00 Test Item Value Reference Range Interpretation Comments Monocytes # (test code 0.4 See_Comment [Aut omated message] The = Monocytes #) system which generated this result tra nsmitted reference range : <=0.8. The reference r lily was not used to int erpret this result as normal/abnormal . [facility] [id number] 21:59:00 Test Item Value Reference Range Interpretation Comments Eosinophils # (test code 0.2 See_Comment [A utomated message] The = Eosinophils #) system whic h generated this result tra nsmitted reference range : <=0.5. The reference r lily was not used to int erpret this result as normal/abnormal . [facility]CHE[facility] [id number] 21:59:00 Test Item Value Reference Range Interpretation Comments Globulin (test code = Globulin) 4.5 2.7-4.2 [facility] [id number] 21:59:00 Test Item Value Reference Range Interpretation Comments UA Color (test code = Yellow *NA*(04/09/19 UA Color) 3:59 PM) [facility] [id number] 21:59:00 Test Item Value Reference Range Interpretation Comments UA Turbidity (test code = Clear (04/09/19 3:59 UA Turbidity) PM) [facility] [id number] 21:59:00 Test Item Value Reference Range Interpretation Comments UA Spec Grav (test code = UA Spec 1.010 1 Grav) [facility] [id number] 21:59:00 Test Item Value Reference Range Interpretation Comments UA pH (test code = UA pH) 6.0 1 5.0-8.0 [facility] [id number] 21:59:00 Test Item Value Reference Range Interpretation Comments UA Protein (test code Negative (04/09/19 3:59 = UA Protein) PM) [facility] [id number] 21:59:00 Test Item Value Reference Range Interpretation Comments UA Glucose (test code Negative (04/09/19 3:59 = UA Glucose) PM) [facility] [id number] 21:59:00 Test Item Value Reference Range Interpretation Comments UA Ketones (test code Negative *NA*(04/09/19 = UA Ketones) 3:59 PM) [facility] [id number] 21:59:00 Test Item Value Reference Range Interpretation Comments UA Bili (test code = Negative *NA*(04/09/19 UA Bili) 3:59 PM) [facility] [id number] 21:59:00 Test Item Value Reference Range Interpretation Comments UA Blood (test code = Trace *ABN*(04/09/19 UA Blood) 3:59 PM) [facility] [id number] 21:59:00 Test Item Value Reference Range Interpretation Comments UA Urobilinogen (test code = UA 0.2 0.1-1.0 Urobilinogen) [facility]CHE[facility] [id number] 21:59:00 Test Item Value Reference Range Interpretation Comments A/G Ratio (test code = A/G Ratio) 0.8 1 0.7-1.6 [facility] [id number] 21:59:00 Test Item Value Reference Range Interpretation Comments UA Nitrite (test code Negative (04/09/19 3:59 = UA Nitrite) PM) [facility] [id number] 21:59:00 Test Item Value Reference Range Interpretation Comments UA Leuk Est (test Negative (04/09/19 3:59 code = UA Leuk Est) PM) [facility] [id number] 21:59:00 Test Item Value Reference Range Interpretation Comments UA Sq Epi (test code = UA Sq Occasional /LPF Epi) [facility] [id number] 21:59:00 Test Item Value Reference Range Interpretation Comments UA WBC (test code = UA None Seen (04/09/19 3:59 WBC) PM) [facility] [id number] 21:59:00 Test Item Value Reference Range Interpretation Comments UA RBC (test code = 3-5 /HPF See_Comment [Automa shaun message] The UA RBC) system which ge nerated this result tra nsmitted reference range : <=2. The reference range was not used to interpr et this result as jackeline l/abnormal. [facility]ann[facility] AND [id number] 21:59:00 Test Item Value Reference Range Interpretation Comments UA Bacteria (test code = None Seen (04/09/19 UA Bacteria) 3:59 PM) [facility]annCHEM [id number] 21:59:00 Test Item Value Reference Range Interpretation Comments eGFR (test code = eGFR) 78 [facility] [id number] 21:59:00 Test Item Value Reference Range Interpretation Comments Lipase Lvl (test code = Lipase Lvl) 112 73-393 [facility] [id number] 21:59:00 Test Item Value Reference Range Interpretation Comments Magnesium Lvl (test code = Magnesium 1.6 1.8-2.4 Lvl) [facility] PasoCzyahmbRAGGCDTEFW1473-53-58 21:59:00 Test Item Value Reference Range Interpretation Comments WBC (test code = WBC) 7.6 3.7-10.4 [facility] PasoDavzsobOTZTKSYPOX9382-41-97 21:59:00 Test Item Value Reference Range Interpretation Comments RBC (test code = RBC) 4.45 4.20-5.40 [facility] PasoRorrwitWDDXBIMYIB2528-37-17 21:59:00 Test Item Value Reference Range Interpretation Comments Hgb (test code = Hgb) 13.6 12.0-16.0 [facility] PasoLtqfgqaPQBUOFEGZY0975-44-93 21:59:00 Test Item Value Reference Range Interpretation Comments Hct (test code = Hct) 40.3 36.0-48.0 [facility] PasoZddinzkUSMVMUWRWX0107-80-92 21:59:00 Test Item Value Reference Range Interpretation Comments MCV (test code = MCV) 90.6 80.0-98.0 [facility] PasoHtydvhkBIJQQAWEVV1378-30-81 21:59:00 Test Item Value Reference Range Interpretation Comments MCH (test code = MCH) 30.5 pg 27.0-31.0 [facility] PasoSchasobBGLJWWPJZS5973-45-54 21:59:00 Test Item Value Reference Range Interpretation Comments MCHC (test code = MCHC) 33.7 32.0-36.0 [facility] PasoIizifkmCRGKBHCNTX8061-02-75 21:59:00 Test Item Value Reference Range Interpretation Comments RDW (test code = RDW) 12.9 11.5-14.5 [facility] PasoCbaxrhqDLRTJZWWYB4452-71-80 21:59:00 Test Item Value Reference Range Interpretation Comments Platelet (test code = Platelet) 192 133-450 [facility] PasoAphyhcvRZOHWNEWGN8552-51-92 21:59:00 Test Item Value Reference Range Interpretation Comments MPV (test code = MPV) 9.6 7.4-10.4 [facility] PasoKdqauksTFLVRTYUCC9916-09-07 21:59:00 Test Item Value Reference Range Interpretation Comments PT (test code = PT) 13.7 s 12.0-14.7 [facility] PasoGuaulffKCRPMPPQER1423-98-78 21:59:00 Test Item Value Reference Range Interpretation Comments INR (test code = INR) 1.05 1 0.85-1.17 [facility] PasoVpntxbtGPDRFISEEX4673-66-05 21:59:00 Test Item Value Reference Range Interpretation Comments Segs (test code = Segs) 67.6 45.0-75.0 [place] 107530-01-11 21:59:00 Test Item Value Reference Range Interpretation Comments Lymphocytes (test code = Lymphocytes) 23.6 20.0-40.0 [place] 107530-01-11 21:59:00 Test Item Value Reference Range Interpretation Comments Monocytes (test code = Monocytes) 5.8 2.0-12.0 [facility] PasoYwnwzqoOWQFZGAQIE6080-46-73 21:59:00 Test Item Value Reference Range Interpretation Comments Eosinophils (test code = 2.5 See_Comment [A utomated message] The Eosinophils) system which ge nerated this result tra nsmitted reference range : <=4.0. The reference r lily was not used to int erpret this result as normal/abnormal . [facility] PasoHiiflanRRYUYLVEXI2323-64-67 21:59:00 Test Item Value Reference Range Interpretation Comments Basophils (test code = 0.5 See_Comment [Aut omated message] The Basophils) system which ge nerated this result tra nsmitted reference range : <=1.0. The reference r lily was not used to int erpret this result as normal/abnormal . [facility] PasoWeegpanCXGOYJWFVE4910-24-78 21:59:00 Test Item Value Reference Range Interpretation Comments Neutrophils # (test code = Neutrophils 5.1 1.5-8.1 #) [place] 107530-01-11 21:59:00 Test Item Value Reference Range Interpretation Comments Lymphocytes # (test code = Lymphocytes 1.8 1.0-5.5 #) [place] 107530-01-11 21:59:00 Test Item Value Reference Range Interpretation Comments Monocytes # (test code 0.4 See_Comment [Aut omated message] The = Monocytes #) system which generated this result tra nsmitted reference range : <=0.8. The reference r lily was not used to int erpret this result as normal/abnormal . [facility] CampusCARPark [facility] Services [id number] 21:59:00 Test Item Value Reference Range Interpretation Comments Total CK (test code = Total CK) 93 12-191 [facility] CampusHtkacsqZKMQTEXLEC5401-10-86 21:59:00 Test Item Value Reference Range Interpretation Comments Eosinophils # (test code 0.2 See_Comment [A utomated message] The = Eosinophils #) system whic h generated this result tra nsmitted reference range : <=0.5. The reference r lily was not used to int erpret this result as normal/abnormal . [facility] CampusCreaWor [id number] 21:59:00 Test Item Value Reference Range Interpretation Comments Troponin-I (test code 0.03 See_Comment [Auto mated message] The = Troponin-I) system which g enerated this result transmit shaun reference range : <=0.40. The reference r lily was not used to interpr et this result as jackeline l/abnormal. [facility]Ad[facility] [id number] 21:59:00 Test Item Value Reference Range Interpretation Comments Glucose Lvl (test code = Glucose Lvl) 142 70-99 [facility] [id number] 21:59:00 Test Item Value Reference Range Interpretation Comments BUN (test code = BUN) 13 7-22 [facility] CampusThingMagic [id number] 21:59:00 Test Item Value Reference Range Interpretation Comments Creatinine Lvl (test code = Creatinine 0.79 0.50-1.40 Lvl) [facility] [id number] 21:59:00 Test Item Value Reference Range Interpretation Comments Sodium Lvl (test code = Sodium Lvl) 131 135-145 [facility] [id number] 21:59:00 Test Item Value Reference Range Interpretation Comments Potassium Lvl (test code = Potassium 3.4 3.5-5.1 Lvl) [facility] CampusTh[facility] [id number] 21:59:00 Test Item Value Reference Range Interpretation Comments Chloride Lvl (test code = Chloride Lvl) 98 95-109 [facility] [id number] 21:59:00 Test Item Value Reference Range Interpretation Comments CO2 (test code = CO2) 33 24-32 [facility] [id number] 21:59:00 Test Item Value Reference Range Interpretation Comments Calcium Lvl (test code = Calcium Lvl) 9.3 8.5-10.5 [facility] [id number] 21:59:00 Test Item Value Reference Range Interpretation Comments Total Protein (test code = Total 8.1 6.4-8.4 Protein) [facility] AND [id number] 21:59:00 Test Item Value Reference Range Interpretation Comments UA Color (test code = Yellow *NA*(04/09/19 UA Color) 3:59 PM) [facility] [id number] 21:59:00 Test Item Value Reference Range Interpretation Comments Albumin Lvl (test code = Albumin Lvl) 3.6 3.5-5.0 [facility]2020-01-11 21:59:00 Test Item Value Reference Range Interpretation Comments ALT (test code = ALT) 18 See_Comment [Auto mated message] The system which ge nerated this result transmit shuan reference range : <=65. The reference range was not used to interpr et this result as jackeline l/abnormal. [facility]2020-01-11 21:59:00 Test Item Value Reference Range Interpretation Comments AST (test code = AST) 21 See_Comment [Auto mated message] The system which ge nerated this result transmit shaun reference range : <=37. The reference range was not used to interpr et this result as jackeline l/abnormal. [facility]2020-01-11 21:59:00 Test Item Value Reference Range Interpretation Comments Alk Phos (test code = Alk Phos) 95 39-136 [facility]2020-01-11 21:59:00 Test Item Value Reference Range Interpretation Comments Bili Total (test code = Bili Total) 0.5 0.2-1.3 [facility]2020-01-11 21:59:00 Test Item Value Reference Range Interpretation Comments AGAP (test code = AGAP) 3.4 10.0-20.0 [facility]2020-01-11 21:59:00 Test Item Value Reference Range Interpretation Comments B/C Ratio (test code = B/C Ratio) 16 1 6-25 [place] [id number] 21:59:00 Test Item Value Reference Range Interpretation Comments Globulin (test code = Globulin) 4.5 2.7-4.2 [facility]2020-01-11 21:59:00 Test Item Value Reference Range Interpretation Comments A/G Ratio (test code = A/G Ratio) 0.8 1 0.7-1.6 [facility]2020-01-11 21:59:00 Test Item Value Reference Range Interpretation Comments eGFR (test code = eGFR) 78 [facility] CampusUR[facility] AND [id number] 21:59:00 Test Item Value Reference Range Interpretation Comments UA Turbidity (test code = Clear (04/09/19 3:59 UA Turbidity) PM) [facility]2020-01-11 21:59:00 Test Item Value Reference Range Interpretation Comments Lipase Lvl (test code = Lipase Lvl) 112 73-393 [facility]2020-01-11 21:59:00 Test Item Value Reference Range Interpretation Comments Magnesium Lvl (test code = Magnesium 1.6 1.8-2.4 Lvl) [facility] PasoYzlgbyaIXUAFFUPAJ8071-00-07 21:59:00 Test Item Value Reference Range Interpretation Comments WBC (test code = WBC) 7.6 3.7-10.4 [facility] PasoPichogaZKZEXIEOJD0125-83-46 21:59:00 Test Item Value Reference Range Interpretation Comments RBC (test code = RBC) 4.45 4.20-5.40 [facility] PasoPxeelsuKPJIWVQCTZ4866-39-50 21:59:00 Test Item Value Reference Range Interpretation Comments Hgb (test code = Hgb) 13.6 12.0-16.0 [place] 107530-01-11 21:59:00 Test Item Value Reference Range Interpretation Comments Hct (test code = Hct) 40.3 36.0-48.0 [facility] PasoVstmertXVVCQWOQPC3393-44-18 21:59:00 Test Item Value Reference Range Interpretation Comments MCV (test code = MCV) 90.6 80.0-98.0 [place] 107530-01-11 21:59:00 Test Item Value Reference Range Interpretation Comments MCH (test code = MCH) 30.5 pg 27.0-31.0 [facility] PasoBrjehtzMRYBQUYGCA8448-46-21 21:59:00 Test Item Value Reference Range Interpretation Comments MCHC (test code = MCHC) 33.7 32.0-36.0 [facility]HgekyhqMLSUTMXYDP7119-01-09 21:59:00 Test Item Value Reference Range Interpretation Comments RDW (test code = RDW) 12.9 11.5-14.5 [facility]2020-01-11 21:59:00 Test Item Value Reference Range Interpretation Comments UA Spec Grav (test code = UA Spec 1.010 1 Grav) [facility] PasoIbfjajgUYQKUBATMP3665-75-46 21:59:00 Test Item Value Reference Range Interpretation Comments Platelet (test code = Platelet) 192 133-450 [facility] PasoHdjzylgLCHOWMKRFN7219-40-40 21:59:00 Test Item Value Reference Range Interpretation Comments MPV (test code = MPV) 9.6 7.4-10.4 [facility] PasoOmhlefmWIEYLEOVSM9690-82-66 21:59:00 Test Item Value Reference Range Interpretation Comments PT (test code = PT) 13.7 s 12.0-14.7 [facility]awDaomjeaNXSPZFCMJX7686-02-54 21:59:00 Test Item Value Reference Range Interpretation Comments INR (test code = INR) 1.05 1 0.85-1.17 [facility]aginawBrcieezDZUGOPENGA4189-16-27 21:59:00 Test Item Value Reference Range Interpretation Comments Segs (test code = Segs) 67.6 45.0-75.0 [facility] PasoPtuyialWSQURXNOWE8908-83-84 21:59:00 Test Item Value Reference Range Interpretation Comments Lymphocytes (test code = Lymphocytes) 23.6 20.0-40.0 [facility]awKxeejkgYISIVHNBCQ5889-39-70 21:59:00 Test Item Value Reference Range Interpretation Comments Monocytes (test code = Monocytes) 5.8 2.0-12.0 [facility] PasoAjjwajfECQAYCNOCE7295-06-23 21:59:00 Test Item Value Reference Range Interpretation Comments Eosinophils (test code = 2.5 See_Comment [A utomated message] The Eosinophils) system which ge nerated this result tra nsmitted reference range : <=4.0. The reference r lily was not used to int erpret this result as normal/abnormal . [facility] PasoRhxvpseIPUKQNCHEM5650-79-55 21:59:00 Test Item Value Reference Range Interpretation Comments Basophils (test code = 0.5 See_Comment [Aut omated message] The Basophils) system which ge nerated this result tra nsmitted reference range : <=1.0. The reference r lily was not used to int erpret this result as normal/abnormal . [facility] PasoJnddtzaWDUYLFIRIB4225-74-59 21:59:00 Test Item Value Reference Range Interpretation Comments Neutrophils # (test code = Neutrophils 5.1 1.5-8.1 #) [facility] AND [id number] 21:59:00 Test Item Value Reference Range Interpretation Comments UA pH (test code = UA pH) 6.0 1 5.0-8.0 [facility] PasoXzxjyyeRWKYYVPBVD7503-24-50 21:59:00 Test Item Value Reference Range Interpretation Comments Lymphocytes # (test code = Lymphocytes 1.8 1.0-5.5 #) [facility] PasoJpwbpwoOJWYWLPFTG5579-18-74 21:59:00 Test Item Value Reference Range Interpretation Comments Monocytes # (test code 0.4 See_Comment [Aut omated message] The = Monocytes #) system which generated this result tra nsmitted reference range : <=0.8. The reference r lily was not used to int erpret this result as normal/abnormal . [facility] PasoQgfmngxEQOJUXWHWS4560-35-15 21:59:00 Test Item Value Reference Range Interpretation Comments Eosinophils # (test code 0.2 See_Comment [A utomated message] The = Eosinophils #) system whic h generated this result tra nsmitted reference range : <=0.5. The reference r lily was not used to int erpret this result as normal/abnormal . [facility] AND [id number] 21:59:00 Test Item Value Reference Range Interpretation Comments UA Color (test code = Yellow *NA*(04/09/19 UA Color) 3:59 PM) [facility] AND [id number] 21:59:00 Test Item Value Reference Range Interpretation Comments UA Turbidity (test code = Clear (04/09/19 3:59 UA Turbidity) PM) [facility] AND [id number] 21:59:00 Test Item Value Reference Range Interpretation Comments UA Spec Grav (test code = UA Spec 1.010 1 Grav) [facility] AND [id number] 21:59:00 Test Item Value Reference Range Interpretation Comments UA pH (test code = UA pH) 6.0 1 5.0-8.0 [facility] [id number] 21:59:00 Test Item Value Reference Range Interpretation Comments UA Protein (test code Negative (04/09/19 3:59 = UA Protein) PM) [facility] [id number] 21:59:00 Test Item Value Reference Range Interpretation Comments UA Glucose (test code Negative (04/09/19 3:59 = UA Glucose) PM) [facility] [id number] 21:59:00 Test Item Value Reference Range Interpretation Comments UA Ketones (test code Negative *NA*(04/09/19 = UA Ketones) 3:59 PM) [facility] [id number] 21:59:00 Test Item Value Reference Range Interpretation Comments UA Protein (test code Negative (04/09/19 3:59 = UA Protein) PM) [facility] [id number] 21:59:00 Test Item Value Reference Range Interpretation Comments UA Bili (test code = Negative *NA*(04/09/19 UA Bili) 3:59 PM) [facility] [id number] 21:59:00 Test Item Value Reference Range Interpretation Comments UA Blood (test code = Trace *ABN*(04/09/19 UA Blood) 3:59 PM) [facility]ownannR[facility] [id number] 21:59:00 Test Item Value Reference Range Interpretation Comments UA Urobilinogen (test code = UA 0.2 0.1-1.0 Urobilinogen) [facility] [id number] 21:59:00 Test Item Value Reference Range Interpretation Comments UA Nitrite (test code Negative (04/09/19 3:59 = UA Nitrite) PM) [facility] [id number] 21:59:00 Test Item Value Reference Range Interpretation Comments UA Leuk Est (test Negative (04/09/19 3:59 code = UA Leuk Est) PM) [facility] [id number] 21:59:00 Test Item Value Reference Range Interpretation Comments UA Sq Epi (test code = UA Sq Occasional /LPF Epi) [facility] [id number] 21:59:00 Test Item Value Reference Range Interpretation Comments UA WBC (test code = UA None Seen (04/09/19 3:59 WBC) PM) [facility] [id number] 21:59:00 Test Item Value Reference Range Interpretation Comments UA RBC (test code = 3-5 /HPF See_Comment [Automa shaun message] The UA RBC) system which ge nerated this result tra nsmitted reference range : <=2. The reference range was not used to interpr et this result as jackeline l/abnormal. [facility] [id number] 21:59:00 Test Item Value Reference Range Interpretation Comments UA Bacteria (test code = None Seen (04/09/19 UA Bacteria) 3:59 PM) [facility] [id number] 21:59:00 Test Item Value Reference Range Interpretation Comments UA Glucose (test code Negative (04/09/19 3:59 = UA Glucose) PM) [facility] [id number] 21:59:00 Test Item Value Reference Range Interpretation Comments UA Ketones (test code Negative *NA*(04/09/19 = UA Ketones) 3:59 PM) [facility] [id number] 21:59:00 Test Item Value Reference Range Interpretation Comments UA Bili (test code = Negative *NA*(04/09/19 UA Bili) 3:59 PM) [facility] [id number] 21:59:00 Test Item Value Reference Range Interpretation Comments UA Blood (test code = Trace *ABN*(04/09/19 UA Blood) 3:59 PM) [facility] [id number] 21:59:00 Test Item Value Reference Range Interpretation Comments UA Urobilinogen (test code = UA 0.2 0.1-1.0 Urobilinogen) [facility] [id number] 21:59:00 Test Item Value Reference Range Interpretation Comments UA Nitrite (test code Negative (04/09/19 3:59 = UA Nitrite) PM) [facility] [id number] 21:59:00 Test Item Value Reference Range Interpretation Comments UA Leuk Est (test Negative (04/09/19 3:59 code = UA Leuk Est) PM) [facility] [id number] 21:59:00 Test Item Value Reference Range Interpretation Comments UA Sq Epi (test code = UA Sq Occasional /LPF Epi) [facility] [id number] 21:59:00 Test Item Value Reference Range Interpretation Comments UA WBC (test code = UA None Seen (04/09/19 3:59 WBC) PM) [facility] HelenannURINE AND [id number] 21:59:00 Test Item Value Reference Range Interpretation Comments UA RBC (test code = 3-5 /HPF See_Comment [Automa shaun message] The UA RBC) system which ge nerated this result tra nsmitted reference range : <=2. The reference range was not used to interpr et this result as jackeline l/abnormal. [facility] [id number] 21:59:00 Test Item Value Reference Range Interpretation Comments UA Bacteria (test code = None Seen (04/09/19 UA Bacteria) 3:59 PM) [facility] UptownTabSquareCARDIAC [id number] 21:59:00 Test Item Value Reference Range Interpretation Comments Total CK (test code = Total CK) 93 12-191 [facility] UptownTabSquareCARDIAC [id number] 21:59:00 Test Item Value Reference Range Interpretation Comments Troponin-I (test code 0.03 See_Comment [Auto mated message] The = Troponin-I) system which g enerated this result transmit shaun reference range : <=0.40. The reference r lily was not used to interpr et this result as jackeline l/abnormal. [facility] fav.or.it [id number] 21:59:00 Test Item Value Reference Range Interpretation Comments Glucose Lvl (test code = Glucose Lvl) 142 70-99 [facility] fav.or.it [id number] 21:59:00 Test Item Value Reference Range Interpretation Comments BUN (test code = BUN) 13 7-22 [facility] fav.or.it [id number] 21:59:00 Test Item Value Reference Range Interpretation Comments Creatinine Lvl (test code = Creatinine 0.79 0.50-1.40 Lvl) [facility] fav.or.it [id number] 21:59:00 Test Item Value Reference Range Interpretation Comments Sodium Lvl (test code = Sodium Lvl) 131 135-145 [facility] fav.or.it [id number] 21:59:00 Test Item Value Reference Range Interpretation Comments Potassium Lvl (test code = Potassium 3.4 3.5-5.1 Lvl) [facility]2020-01-11 21:59:00 Test Item Value Reference Range Interpretation Comments Chloride Lvl (test code = Chloride Lvl) 98 95-109 [facility] UptownTabSquareNOV[facility] MED[facility] [id number] 21:59:00 Test Item Value Reference Range Interpretation Comments CO2 (test code = CO2) 33 24-32 [facility]Ad[facility] [id number] 21:59:00 Test Item Value Reference Range Interpretation Comments Calcium Lvl (test code = Calcium Lvl) 9.3 8.5-10.5 [facility] [id number] 21:59:00 Test Item Value Reference Range Interpretation Comments Total Protein (test code = Total 8.1 6.4-8.4 Protein) [facility]2020-01-11 21:59:00 Test Item Value Reference Range Interpretation Comments Albumin Lvl (test code = Albumin Lvl) 3.6 3.5-5.0 [facility] [id number] 21:59:00 Test Item Value Reference Range Interpretation Comments ALT (test code = ALT) 18 See_Comment [Auto mated message] The system which ge nerated this result transmit shaun reference range : <=65. The reference range was not used to interpr et this result as jackeline l/abnormal. [facility] [id number] 21:59:00 Test Item Value Reference Range Interpretation Comments AST (test code = AST) 21 See_Comment [Auto mated message] The system which ge nerated this result transmit shaun reference range : <=37. The reference range was not used to interpr et this result as jackeline l/abnormal. [facility] [id number] 21:59:00 Test Item Value Reference Range Interpretation Comments Alk Phos (test code = Alk Phos) 95 39-136 [facility] CampusThingMagic [id number] 21:59:00 Test Item Value Reference Range Interpretation Comments Bili Total (test code = Bili Total) 0.5 0.2-1.3 [facility]AdQu[facility] [id number] 21:59:00 Test Item Value Reference Range Interpretation Comments AGAP (test code = AGAP) 3.4 10.0-20.0 [place] 626920-01-11 21:59:00 Test Item Value Reference Range Interpretation Comments B/C Ratio (test code = B/C Ratio) 16 1 6-25 [place] 626920-01-11 21:59:00 Test Item Value Reference Range Interpretation Comments Globulin (test code = Globulin) 4.5 2.7-4.2 [place] 626920-01-11 21:59:00 Test Item Value Reference Range Interpretation Comments A/G Ratio (test code = A/G Ratio) 0.8 1 0.7-1.6 [place] [address]-01-11 21:59:00 Test Item Value Reference Range Interpretation Comments eGFR (test code = eGFR) 78 [place] 626920-01-11 21:59:00 Test Item Value Reference Range Interpretation Comments Lipase Lvl (test code = Lipase Lvl) 112 73-393 [place] 626920-01-11 21:59:00 Test Item Value Reference Range Interpretation Comments Magnesium Lvl (test code = Magnesium 1.6 1.8-2.4 Lvl) [place] 107530-01-11 21:59:00 Test Item Value Reference Range Interpretation Comments WBC (test code = WBC) 7.6 3.7-10.4 [place] 107530-01-11 21:59:00 Test Item Value Reference Range Interpretation Comments RBC (test code = RBC) 4.45 4.20-5.40 [place] 107530-01-11 21:59:00 Test Item Value Reference Range Interpretation Comments Hgb (test code = Hgb) 13.6 12.0-16.0 [place] [address]-01-11 21:59:00 Test Item Value Reference Range Interpretation Comments Hct (test code = Hct) 40.3 36.0-48.0 [place] 107530-01-11 21:59:00 Test Item Value Reference Range Interpretation Comments MCV (test code = MCV) 90.6 80.0-98.0 [place] 107530-01-11 21:59:00 Test Item Value Reference Range Interpretation Comments MCH (test code = MCH) 30.5 pg 27.0-31.0 [place] 107530-01-11 21:59:00 Test Item Value Reference Range Interpretation Comments MCHC (test code = MCHC) 33.7 32.0-36.0 [place] [address]-01-11 21:59:00 Test Item Value Reference Range Interpretation Comments RDW (test code = RDW) 12.9 11.5-14.5 [place] 107530-01-11 21:59:00 Test Item Value Reference Range Interpretation Comments Platelet (test code = Platelet) 192 133-450 [place] 107530-01-11 21:59:00 Test Item Value Reference Range Interpretation Comments MPV (test code = MPV) 9.6 7.4-10.4 [place] 107530-01-11 21:59:00 Test Item Value Reference Range Interpretation Comments PT (test code = PT) 13.7 s 12.0-14.7 [place] 107530-01-11 21:59:00 Test Item Value Reference Range Interpretation Comments INR (test code = INR) 1.05 1 0.85-1.17 [place] 107530-01-11 21:59:00 Test Item Value Reference Range Interpretation Comments Segs (test code = Segs) 67.6 45.0-75.0 [place] 107530-01-11 21:59:00 Test Item Value Reference Range Interpretation Comments Lymphocytes (test code = Lymphocytes) 23.6 20.0-40.0 [place] 107530-01-11 21:59:00 Test Item Value Reference Range Interpretation Comments Monocytes (test code = Monocytes) 5.8 2.0-12.0 [place] 107530-01-11 21:59:00 Test Item Value Reference Range Interpretation Comments Eosinophils (test code = 2.5 See_Comment [A utomated message] The Eosinophils) system which ge nerated this result tra nsmitted reference range : <=4.0. The reference r lily was not used to int erpret this result as normal/abnormal . [place] [address]-01-11 21:59:00 Test Item Value Reference Range Interpretation Comments Basophils (test code = 0.5 See_Comment [Aut omated message] The Basophils) system which ge nerated this result tra nsmitted reference range : <=1.0. The reference r lily was not used to int erpret this result as normal/abnormal . [id number] 21:59:00 Test Item Value Reference Range Interpretation Comments Neutrophils # (test code = Neutrophils 5.1 1.5-8.1 #) [facility] [id number] 21:59:00 Test Item Value Reference Range Interpretation Comments Lymphocytes # (test code = Lymphocytes 1.8 1.0-5.5 #) [facility] [id number] 21:59:00 Test Item Value Reference Range Interpretation Comments Monocytes # (test code 0.4 See_Comment [Aut omated message] The = Monocytes #) system which generated this result tra nsmitted reference range : <=0.8. The reference r lily was not used to int erpret this result as normal/abnormal . [facility] PasoOvbvfdbCDTVMMKWPP2837-20-84 21:59:00 Test Item Value Reference Range Interpretation Comments Eosinophils # (test code 0.2 See_Comment [A utomated message] The = Eosinophils #) system whic h generated this result tra nsmitted reference range : <=0.5. The reference r lily was not used to int erpret this result as normal/abnormal . [facility] AND [id number] 21:59:00 Test Item Value Reference Range Interpretation Comments UA Color (test code = Yellow *NA*(04/09/19 UA Color) 3:59 PM) [facility] AND [id number] 21:59:00 Test Item Value Reference Range Interpretation Comments UA Turbidity (test code = Clear (04/09/19 3:59 UA Turbidity) PM) [facility] AND [id number] 21:59:00 Test Item Value Reference Range Interpretation Comments UA Spec Grav (test code = UA Spec 1.010 1 Grav) [facility] AND [id number] 21:59:00 Test Item Value Reference Range Interpretation Comments UA pH (test code = UA pH) 6.0 1 5.0-8.0 [facility] AND [id number] 21:59:00 Test Item Value Reference Range Interpretation Comments UA Protein (test code Negative (04/09/19 3:59 = UA Protein) PM) [facility] AND [id number] 21:59:00 Test Item Value Reference Range Interpretation Comments UA Glucose (test code Negative (04/09/19 3:59 = UA Glucose) PM) [facility] AND [id number] 21:59:00 Test Item Value Reference Range Interpretation Comments UA Ketones (test code Negative *NA*(04/09/19 = UA Ketones) 3:59 PM) [facility] AND [id number] 21:59:00 Test Item Value Reference Range Interpretation Comments UA Bili (test code = Negative *NA*(04/09/19 UA Bili) 3:59 PM) [facility] AND [id number] 21:59:00 Test Item Value Reference Range Interpretation Comments UA Blood (test code = Trace *ABN*(04/09/19 UA Blood) 3:59 PM) [facility] AND [id number] 21:59:00 Test Item Value Reference Range Interpretation Comments UA Urobilinogen (test code = UA 0.2 0.1-1.0 Urobilinogen) [facility] AND [id number] 21:59:00 Test Item Value Reference Range Interpretation Comments UA Nitrite (test code Negative (04/09/19 3:59 = UA Nitrite) PM) [facility] AND [id number] 21:59:00 Test Item Value Reference Range Interpretation Comments UA Leuk Est (test Negative (04/09/19 3:59 code = UA Leuk Est) PM) [facility] AND [id number] 21:59:00 Test Item Value Reference Range Interpretation Comments UA Sq Epi (test code = UA Sq Occasional /LPF Epi) [facility] AND [id number] 21:59:00 Test Item Value Reference Range Interpretation Comments UA WBC (test code = UA None Seen (04/09/19 3:59 WBC) PM) [facility] AND [id number] 21:59:00 Test Item Value Reference Range Interpretation Comments UA RBC (test code = 3-5 /HPF See_Comment [Automa shaun message] The UA RBC) system which ge nerated this result tra nsmitted reference range : <=2. The reference range was not used to interpr et this result as jackeline l/abnormal. [facility] AND [id number] 21:59:00 Test Item Value Reference Range Interpretation Comments UA Bacteria (test code = None Seen (04/09/19 UA Bacteria) 3:59 PM) [facility] [id number] 21:59:00 Test Item Value Reference Range Interpretation Comments Total CK (test code = Total CK) 93 12-191 [facility] CampusCAR[facility] [id number] 21:59:00 Test Item Value Reference Range Interpretation Comments Troponin-I (test code 0.03 See_Comment [Auto mated message] The = Troponin-I) system which g enerated this result transmit shaun reference range : <=0.40. The reference r lily was not used to interpr et this result as jackeline l/abnormal. [facility] CampusThingMagic [id number] 21:59:00 Test Item Value Reference Range Interpretation Comments Glucose Lvl (test code = Glucose Lvl) 142 70-99 [facility]2020-01-11 21:59:00 Test Item Value Reference Range Interpretation Comments BUN (test code = BUN) 13 7-22 [facility]2020-01-11 21:59:00 Test Item Value Reference Range Interpretation Comments Creatinine Lvl (test code = Creatinine 0.79 0.50-1.40 Lvl) [facility]2020-01-11 21:59:00 Test Item Value Reference Range Interpretation Comments Sodium Lvl (test code = Sodium Lvl) 131 135-145 [facility]2020-01-11 21:59:00 Test Item Value Reference Range Interpretation Comments Potassium Lvl (test code = Potassium 3.4 3.5-5.1 Lvl) [facility] [id number] 21:59:00 Test Item Value Reference Range Interpretation Comments Chloride Lvl (test code = Chloride Lvl) 98 95-109 [facility]2020-01-11 21:59:00 Test Item Value Reference Range Interpretation Comments CO2 (test code = CO2) 33 24-32 [facility]2020-01-11 21:59:00 Test Item Value Reference Range Interpretation Comments Calcium Lvl (test code = Calcium Lvl) 9.3 8.5-10.5 [facility]2020-01-11 21:59:00 Test Item Value Reference Range Interpretation Comments Total Protein (test code = Total 8.1 6.4-8.4 Protein) [facility] [id number] 21:59:00 Test Item Value Reference Range Interpretation Comments Albumin Lvl (test code = Albumin Lvl) 3.6 3.5-5.0 [facility] [id number] 21:59:00 Test Item Value Reference Range Interpretation Comments ALT (test code = ALT) 18 See_Comment [Auto mated message] The system which ge nerated this result transmit shaun reference range : <=65. The reference range was not used to interpr et this result as jackeline l/abnormal. [facility] [employer] [id number] 21:59:00 Test Item Value Reference Range Interpretation Comments AST (test code = AST) 21 See_Comment [Auto mated message] The system which ge nerated this result transmit shaun reference range : <=37. The reference range was not used to interpr et this result as jackeline l/abnormal. [facility] [employer] [id number] 21:59:00 Test Item Value Reference Range Interpretation Comments Alk Phos (test code = Alk Phos) 95 39-136 [facility] [id number] 21:59:00 Test Item Value Reference Range Interpretation Comments Bili Total (test code = Bili Total) 0.5 0.2-1.3 [facility] [id number] 21:59:00 Test Item Value Reference Range Interpretation Comments AGAP (test code = AGAP) 3.4 10.0-20.0 [facility] [id number] 21:59:00 Test Item Value Reference Range Interpretation Comments B/C Ratio (test code = B/C Ratio) 16 1 6-25 [facility] [employer] [id number] 21:59:00 Test Item Value Reference Range Interpretation Comments Globulin (test code = Globulin) 4.5 2.7-4.2 [facility] [id number] 21:59:00 Test Item Value Reference Range Interpretation Comments A/G Ratio (test code = A/G Ratio) 0.8 1 0.7-1.6 [facility] [id number] 21:59:00 Test Item Value Reference Range Interpretation Comments eGFR (test code = eGFR) 78 [facility]2020-01-11 21:59:00 Test Item Value Reference Range Interpretation Comments Lipase Lvl (test code = Lipase Lvl) 112 73-393 [facility]2020-01-11 21:59:00 Test Item Value Reference Range Interpretation Comments Magnesium Lvl (test code = Magnesium 1.6 1.8-2.4 Lvl) [facility] [id number] 21:59:00 Test Item Value Reference Range Interpretation Comments WBC (test code = WBC) 7.6 3.7-10.4 [facility] [id number] 21:59:00 Test Item Value Reference Range Interpretation Comments RBC (test code = RBC) 4.45 4.20-5.40 [facility] [id number] 21:59:00 Test Item Value Reference Range Interpretation Comments Hgb (test code = Hgb) 13.6 12.0-16.0 [place] 107530-01-11 21:59:00 Test Item Value Reference Range Interpretation Comments Hct (test code = Hct) 40.3 36.0-48.0 [facility] [id number] 21:59:00 Test Item Value Reference Range Interpretation Comments MCV (test code = MCV) 90.6 80.0-98.0 [facility] [id number] 21:59:00 Test Item Value Reference Range Interpretation Comments MCH (test code = MCH) 30.5 pg 27.0-31.0 [facility] [id number] 21:59:00 Test Item Value Reference Range Interpretation Comments MCHC (test code = MCHC) 33.7 32.0-36.0 [facility] [id number] 21:59:00 Test Item Value Reference Range Interpretation Comments RDW (test code = RDW) 12.9 11.5-14.5 [place] 107530-01-11 21:59:00 Test Item Value Reference Range Interpretation Comments Platelet (test code = Platelet) 192 133-450 [facility] PasoUpjxkpgGFPMCYQVIC7584-92-21 21:59:00 Test Item Value Reference Range Interpretation Comments MPV (test code = MPV) 9.6 7.4-10.4 [place] 107530-01-11 21:59:00 Test Item Value Reference Range Interpretation Comments PT (test code = PT) 13.7 s 12.0-14.7 [facility] [id number] 21:59:00 Test Item Value Reference Range Interpretation Comments INR (test code = INR) 1.05 1 0.85-1.17 [place] 107530-01-11 21:59:00 Test Item Value Reference Range Interpretation Comments Segs (test code = Segs) 67.6 45.0-75.0 [facility] [id number] 21:59:00 Test Item Value Reference Range Interpretation Comments Lymphocytes (test code = Lymphocytes) 23.6 20.0-40.0 [place] 107530-01-11 21:59:00 Test Item Value Reference Range Interpretation Comments Monocytes (test code = Monocytes) 5.8 2.0-12.0 [facility] [id number] 21:59:00 Test Item Value Reference Range Interpretation Comments Eosinophils (test code = 2.5 See_Comment [A utomated message] The Eosinophils) system which ge nerated this result tra nsmitted reference range : <=4.0. The reference r lily was not used to int erpret this result as normal/abnormal . [facility] [id number] 21:59:00 Test Item Value Reference Range Interpretation Comments Basophils (test code = 0.5 See_Comment [Aut omated message] The Basophils) system which ge nerated this result tra nsmitted reference range : <=1.0. The reference r lily was not used to int erpret this result as normal/abnormal . [facility] [id number] 21:59:00 Test Item Value Reference Range Interpretation Comments Neutrophils # (test code = Neutrophils 5.1 1.5-8.1 #) [facility] [id number] 21:59:00 Test Item Value Reference Range Interpretation Comments Lymphocytes # (test code = Lymphocytes 1.8 1.0-5.5 #) [facility] [id number] 21:59:00 Test Item Value Reference Range Interpretation Comments Monocytes # (test code 0.4 See_Comment [Aut omated message] The = Monocytes #) system which generated this result tra nsmitted reference range : <=0.8. The reference r lily was not used to int erpret this result as normal/abnormal . [id number] 21:59:00 Test Item Value Reference Range Interpretation Comments Eosinophils # (test code 0.2 See_Comment [A utomated message] The = Eosinophils #) system whic h generated this result tra nsmitted reference range : <=0.5. The reference r lily was not used to int erpret this result as normal/abnormal . [facility] AND [id number] 21:59:00 Test Item Value Reference Range Interpretation Comments UA Color (test code = Yellow *NA*(04/09/19 UA Color) 3:59 PM) [facility] AND [id number] 21:59:00 Test Item Value Reference Range Interpretation Comments UA Turbidity (test code = Clear (04/09/19 3:59 UA Turbidity) PM) [facility] AND [id number] 21:59:00 Test Item Value Reference Range Interpretation Comments UA Spec Grav (test code = UA Spec 1.010 1 Grav) [facility] AND [id number] 21:59:00 Test Item Value Reference Range Interpretation Comments UA pH (test code = UA pH) 6.0 1 5.0-8.0 [facility] AND [id number] 21:59:00 Test Item Value Reference Range Interpretation Comments UA Protein (test code Negative (04/09/19 3:59 = UA Protein) PM) [facility] AND [id number] 21:59:00 Test Item Value Reference Range Interpretation Comments UA Glucose (test code Negative (04/09/19 3:59 = UA Glucose) PM) [facility] AND [id number] 21:59:00 Test Item Value Reference Range Interpretation Comments UA Ketones (test code Negative *NA*(04/09/19 = UA Ketones) 3:59 PM) [facility] AND [id number] 21:59:00 Test Item Value Reference Range Interpretation Comments UA Bili (test code = Negative *NA*(04/09/19 UA Bili) 3:59 PM) [facility] AND [id number] 21:59:00 Test Item Value Reference Range Interpretation Comments UA Blood (test code = Trace *ABN*(04/09/19 UA Blood) 3:59 PM) [facility] [id number] 21:59:00 Test Item Value Reference Range Interpretation Comments UA Urobilinogen (test code = UA 0.2 0.1-1.0 Urobilinogen) [facility] [id number] 21:59:00 Test Item Value Reference Range Interpretation Comments UA Nitrite (test code Negative (04/09/19 3:59 = UA Nitrite) PM) [facility] [id number] 21:59:00 Test Item Value Reference Range Interpretation Comments UA Leuk Est (test Negative (04/09/19 3:59 code = UA Leuk Est) PM) [facility] [id number] 21:59:00 Test Item Value Reference Range Interpretation Comments UA Sq Epi (test code = UA Sq Occasional /LPF Epi) [facility] [id number] 21:59:00 Test Item Value Reference Range Interpretation Comments UA WBC (test code = UA None Seen (04/09/19 3:59 WBC) PM) [facility] [id number] 21:59:00 Test Item Value Reference Range Interpretation Comments UA RBC (test code = 3-5 /HPF See_Comment [Automa shaun message] The UA RBC) system which ge nerated this result tra nsmitted reference range : <=2. The reference range was not used to interpr et this result as jackeline l/abnormal. [facility] [id number] 21:59:00 Test Item Value Reference Range Interpretation Comments UA Bacteria (test code = None Seen (04/09/19 UA Bacteria) 3:59 PM) [facility] [id number] 21:59:00 Test Item Value Reference Range Interpretation Comments Total CK (test code = Total CK) 93 12-191 [facility] [id number] 21:59:00 Test Item Value Reference Range Interpretation Comments Troponin-I (test code 0.03 See_Comment [Auto mated message] The = Troponin-I) system which g enerated this result transmit shaun reference range : <=0.40. The reference r lily was not used to interpr et this result as jackeline l/abnormal. [facility]2020-01-11 21:59:00 Test Item Value Reference Range Interpretation Comments Glucose Lvl (test code = Glucose Lvl) 142 70-99 [place] 626920-01-11 21:59:00 Test Item Value Reference Range Interpretation Comments BUN (test code = BUN) 13 7-22 [place] 626920-01-11 21:59:00 Test Item Value Reference Range Interpretation Comments Creatinine Lvl (test code = Creatinine 0.79 0.50-1.40 Lvl) [place] 626920-01-11 21:59:00 Test Item Value Reference Range Interpretation Comments Sodium Lvl (test code = Sodium Lvl) 131 135-145 [place] 626920-01-11 21:59:00 Test Item Value Reference Range Interpretation Comments Potassium Lvl (test code = Potassium 3.4 3.5-5.1 Lvl) [place] 626920-01-11 21:59:00 Test Item Value Reference Range Interpretation Comments Chloride Lvl (test code = Chloride Lvl) 98 95-109 [place] 626920-01-11 21:59:00 Test Item Value Reference Range Interpretation Comments CO2 (test code = CO2) 33 24-32 [place] 626920-01-11 21:59:00 Test Item Value Reference Range Interpretation Comments Calcium Lvl (test code = Calcium Lvl) 9.3 8.5-10.5 [place] 626920-01-11 21:59:00 Test Item Value Reference Range Interpretation Comments Total Protein (test code = Total 8.1 6.4-8.4 Protein) [place] 626920-01-11 21:59:00 Test Item Value Reference Range Interpretation Comments Albumin Lvl (test code = Albumin Lvl) 3.6 3.5-5.0 [place] 626920-01-11 21:59:00 Test Item Value Reference Range Interpretation Comments ALT (test code = ALT) 18 See_Comment [Auto mated message] The system which ge nerated this result transmit shaun reference range : <=65. The reference range was not used to interpr et this result as jackeline l/abnormal. [place] 626920-01-11 21:59:00 Test Item Value Reference Range Interpretation Comments AST (test code = AST) 21 See_Comment [Auto mated message] The system which ge nerated this result transmit shaun reference range : <=37. The reference range was not used to interpr et this result as jackeline l/abnormal. [place] 626920-01-11 21:59:00 Test Item Value Reference Range Interpretation Comments Alk Phos (test code = Alk Phos) 95 39-136 [facility]2020-01-11 21:59:00 Test Item Value Reference Range Interpretation Comments Bili Total (test code = Bili Total) 0.5 0.2-1.3 [place] 626920-01-11 21:59:00 Test Item Value Reference Range Interpretation Comments AGAP (test code = AGAP) 3.4 10.0-20.0 [place] 626920-01-11 21:59:00 Test Item Value Reference Range Interpretation Comments B/C Ratio (test code = B/C Ratio) 16 1 6-25 [place] 626920-01-11 21:59:00 Test Item Value Reference Range Interpretation Comments Globulin (test code = Globulin) 4.5 2.7-4.2 [place] 626920-01-11 21:59:00 Test Item Value Reference Range Interpretation Comments A/G Ratio (test code = A/G Ratio) 0.8 1 0.7-1.6 [place] 626920-01-11 21:59:00 Test Item Value Reference Range Interpretation Comments eGFR (test code = eGFR) 78 [facility]2020-01-11 21:59:00 Test Item Value Reference Range Interpretation Comments Lipase Lvl (test code = Lipase Lvl) 112 73-393 [place] 626920-01-11 21:59:00 Test Item Value Reference Range Interpretation Comments Magnesium Lvl (test code = Magnesium 1.6 1.8-2.4 Lvl) [place] 107530-01-11 21:59:00 Test Item Value Reference Range Interpretation Comments WBC (test code = WBC) 7.6 3.7-10.4 [place] 107530-01-11 21:59:00 Test Item Value Reference Range Interpretation Comments RBC (test code = RBC) 4.45 4.20-5.40 [place] 107530-01-11 21:59:00 Test Item Value Reference Range Interpretation Comments Hgb (test code = Hgb) 13.6 12.0-16.0 [id number] 21:59:00 Test Item Value Reference Range Interpretation Comments Hct (test code = Hct) 40.3 36.0-48.0 [facility] PasoLbzwlgpIRWDTMSXKX7757-03-23 21:59:00 Test Item Value Reference Range Interpretation Comments MCV (test code = MCV) 90.6 80.0-98.0 [facility] PasoLplmpigDUKMMQYHZD2242-30-92 21:59:00 Test Item Value Reference Range Interpretation Comments MCH (test code = MCH) 30.5 pg 27.0-31.0 [facility] [id number] 21:59:00 Test Item Value Reference Range Interpretation Comments MCHC (test code = MCHC) 33.7 32.0-36.0 [facility] PasoNhihsbuQOHNMVSKGH2267-44-03 21:59:00 Test Item Value Reference Range Interpretation Comments RDW (test code = RDW) 12.9 11.5-14.5 [facility] PasoRpwupzqJSSXMIFWOF4452-51-82 21:59:00 Test Item Value Reference Range Interpretation Comments Platelet (test code = Platelet) 192 133-450 [facility] PasoGwxxtpxAONEDLNJDI4667-42-58 21:59:00 Test Item Value Reference Range Interpretation Comments MPV (test code = MPV) 9.6 7.4-10.4 [facility] [id number] 21:59:00 Test Item Value Reference Range Interpretation Comments PT (test code = PT) 13.7 s 12.0-14.7 [facility] Pa[id number] 21:59:00 Test Item Value Reference Range Interpretation Comments INR (test code = INR) 1.05 1 0.85-1.17 [facility] PasoDdersncXBAOQNAAUF9340-41-32 21:59:00 Test Item Value Reference Range Interpretation Comments Segs (test code = Segs) 67.6 45.0-75.0 [facility] PasoTlzuxeeSYBMMUOANX3601-67-53 21:59:00 Test Item Value Reference Range Interpretation Comments Lymphocytes (test code = Lymphocytes) 23.6 20.0-40.0 [facility] Pa[id number] 21:59:00 Test Item Value Reference Range Interpretation Comments Monocytes (test code = Monocytes) 5.8 2.0-12.0 [facility] PasoJvrjrrlUYCBRRXBGT3905-69-43 21:59:00 Test Item Value Reference Range Interpretation Comments Eosinophils (test code = 2.5 See_Comment [A utomated message] The Eosinophils) system which ge nerated this result tra nsmitted reference range : <=4.0. The reference r lily was not used to int erpret this result as normal/abnormal . [facility] PasoQylydktRTDTQODUGG6584-11-89 21:59:00 Test Item Value Reference Range Interpretation Comments Basophils (test code = 0.5 See_Comment [Aut omated message] The Basophils) system which ge nerated this result tra nsmitted reference range : <=1.0. The reference r lily was not used to int erpret this result as normal/abnormal . [facility] PasoEjdnnacYCZDLWDXLZ1531-96-22 21:59:00 Test Item Value Reference Range Interpretation Comments Neutrophils # (test code = Neutrophils 5.1 1.5-8.1 #) [facility] PasoGohkqujLCRGCGWUYG4438-04-41 21:59:00 Test Item Value Reference Range Interpretation Comments Lymphocytes # (test code = Lymphocytes 1.8 1.0-5.5 #) [facility] PasoOlruxvgCZSWOVQBET0501-15-45 21:59:00 Test Item Value Reference Range Interpretation Comments Monocytes # (test code 0.4 See_Comment [Aut omated message] The = Monocytes #) system which generated this result tra nsmitted reference range : <=0.8. The reference r lily was not used to int erpret this result as normal/abnormal . [facility] PasoMqwrinfUENMDJXQRE8127-78-96 21:59:00 Test Item Value Reference Range Interpretation Comments Eosinophils # (test code 0.2 See_Comment [A utomated message] The = Eosinophils #) system whic h generated this result tra nsmitted reference range : <=0.5. The reference r lily was not used to int erpret this result as normal/abnormal . [facility] AND [id number] 21:59:00 Test Item Value Reference Range Interpretation Comments UA Color (test code = Yellow *NA*(04/09/19 UA Color) 3:59 PM) [facility] AND [id number] 21:59:00 Test Item Value Reference Range Interpretation Comments UA Turbidity (test code = Clear (04/09/19 3:59 UA Turbidity) PM) [facility] AND [id number] 21:59:00 Test Item Value Reference Range Interpretation Comments UA Spec Grav (test code = UA Spec 1.010 1 Grav) [facility] AND [id number] 21:59:00 Test Item Value Reference Range Interpretation Comments UA pH (test code = UA pH) 6.0 1 5.0-8.0 [facility] AND [id number] 21:59:00 Test Item Value Reference Range Interpretation Comments UA Protein (test code Negative (04/09/19 3:59 = UA Protein) PM) [facility] AND [id number] 21:59:00 Test Item Value Reference Range Interpretation Comments UA Glucose (test code Negative (04/09/19 3:59 = UA Glucose) PM) [facility] AND [id number] 21:59:00 Test Item Value Reference Range Interpretation Comments UA Ketones (test code Negative *NA*(04/09/19 = UA Ketones) 3:59 PM) [facility] AND [id number] 21:59:00 Test Item Value Reference Range Interpretation Comments UA Bili (test code = Negative *NA*(04/09/19 UA Bili) 3:59 PM) [facility] AND [id number] 21:59:00 Test Item Value Reference Range Interpretation Comments UA Blood (test code = Trace *ABN*(04/09/19 UA Blood) 3:59 PM) [facility] AND [id number] 21:59:00 Test Item Value Reference Range Interpretation Comments UA Urobilinogen (test code = UA 0.2 0.1-1.0 Urobilinogen) [facility] AND [id number] 21:59:00 Test Item Value Reference Range Interpretation Comments UA Nitrite (test code Negative (04/09/19 3:59 = UA Nitrite) PM) [facility] AND [id number] 21:59:00 Test Item Value Reference Range Interpretation Comments UA Leuk Est (test Negative (04/09/19 3:59 code = UA Leuk Est) PM) [facility] AND [id number] 21:59:00 Test Item Value Reference Range Interpretation Comments UA Sq Epi (test code = UA Sq Occasional /LPF Epi) [facility] AND [id number] 21:59:00 Test Item Value Reference Range Interpretation Comments UA WBC (test code = UA None Seen (04/09/19 3:59 WBC) PM) [facility] AND [id number] 21:59:00 Test Item Value Reference Range Interpretation Comments UA RBC (test code = 3-5 /HPF See_Comment [Automa shaun message] The UA RBC) system which ge nerated this result tra nsmitted reference range : <=2. The reference range was not used to interpr et this result as jackeline l/abnormal. [facility] AND [id number] 21:59:00 Test Item Value Reference Range Interpretation Comments UA Bacteria (test code = None Seen (04/09/19 UA Bacteria) 3:59 PM) [facility] [id number] 21:59:00 Test Item Value Reference Range Interpretation Comments Total CK (test code = Total CK) 93 12-191 [facility] [id number] 21:59:00 Test Item Value Reference Range Interpretation Comments Troponin-I (test code 0.03 See_Comment [Auto mated message] The = Troponin-I) system which g enerated this result transmit shaun reference range : <=0.40. The reference r lily was not used to interpr et this result as jackeline l/abnormal. [facility] fav.or.it [id number] 21:59:00 Test Item Value Reference Range Interpretation Comments Glucose Lvl (test code = Glucose Lvl) 142 70-99 [facility] [id number] 21:59:00 Test Item Value Reference Range Interpretation Comments BUN (test code = BUN) 13 7-22 [facility] [id number] 21:59:00 Test Item Value Reference Range Interpretation Comments Creatinine Lvl (test code = Creatinine 0.79 0.50-1.40 Lvl) [facility] [id number] 21:59:00 Test Item Value Reference Range Interpretation Comments Sodium Lvl (test code = Sodium Lvl) 131 135-145 [facility] [id number] 21:59:00 Test Item Value Reference Range Interpretation Comments Potassium Lvl (test code = Potassium 3.4 3.5-5.1 Lvl) [facility] [id number] 21:59:00 Test Item Value Reference Range Interpretation Comments Chloride Lvl (test code = Chloride Lvl) 98 95-109 [facility] [id number] 21:59:00 Test Item Value Reference Range Interpretation Comments CO2 (test code = CO2) 33 24-32 [facility] [id number] 21:59:00 Test Item Value Reference Range Interpretation Comments Calcium Lvl (test code = Calcium Lvl) 9.3 8.5-10.5 [facility] [id number] 21:59:00 Test Item Value Reference Range Interpretation Comments Total Protein (test code = Total 8.1 6.4-8.4 Protein) [facility] [id number] 21:59:00 Test Item Value Reference Range Interpretation Comments Albumin Lvl (test code = Albumin Lvl) 3.6 3.5-5.0 [facility] [id number] 21:59:00 Test Item Value Reference Range Interpretation Comments ALT (test code = ALT) 18 See_Comment [Auto mated message] The system which ge nerated this result transmit shaun reference range : <=65. The reference range was not used to interpr et this result as jackeline l/abnormal. [facility] [id number] 21:59:00 Test Item Value Reference Range Interpretation Comments AST (test code = AST) 21 See_Comment [Auto mated message] The system which ge nerated this result transmit shaun reference range : <=37. The reference range was not used to interpr et this result as jackeline l/abnormal. [facility] fav.or.it [id number] 21:59:00 Test Item Value Reference Range Interpretation Comments Alk Phos (test code = Alk Phos) 95 39-136 [facility] [id number] 21:59:00 Test Item Value Reference Range Interpretation Comments Bili Total (test code = Bili Total) 0.5 0.2-1.3 [facility] [id number] 21:59:00 Test Item Value Reference Range Interpretation Comments AGAP (test code = AGAP) 3.4 10.0-20.0 [place] [id number] 21:59:00 Test Item Value Reference Range Interpretation Comments B/C Ratio (test code = B/C Ratio) 16 1 6-25 [place] [address]-01-11 21:59:00 Test Item Value Reference Range Interpretation Comments Globulin (test code = Globulin) 4.5 2.7-4.2 [place] 626920-01-11 21:59:00 Test Item Value Reference Range Interpretation Comments A/G Ratio (test code = A/G Ratio) 0.8 1 0.7-1.6 [place] [address]-01-11 21:59:00 Test Item Value Reference Range Interpretation Comments eGFR (test code = eGFR) 78 [place] 626920-01-11 21:59:00 Test Item Value Reference Range Interpretation Comments Lipase Lvl (test code = Lipase Lvl) 112 73-393 [place] 626920-01-11 21:59:00 Test Item Value Reference Range Interpretation Comments Magnesium Lvl (test code = Magnesium 1.6 1.8-2.4 Lvl) [place] 107530-01-11 21:59:00 Test Item Value Reference Range Interpretation Comments WBC (test code = WBC) 7.6 3.7-10.4 [place] 107530-01-11 21:59:00 Test Item Value Reference Range Interpretation Comments RBC (test code = RBC) 4.45 4.20-5.40 [place] 107530-01-11 21:59:00 Test Item Value Reference Range Interpretation Comments Hgb (test code = Hgb) 13.6 12.0-16.0 [place] [address]-01-11 21:59:00 Test Item Value Reference Range Interpretation Comments Hct (test code = Hct) 40.3 36.0-48.0 [place] [address]-01-11 21:59:00 Test Item Value Reference Range Interpretation Comments MCV (test code = MCV) 90.6 80.0-98.0 [place] [address]-01-11 21:59:00 Test Item Value Reference Range Interpretation Comments MCH (test code = MCH) 30.5 pg 27.0-31.0 [place] [address]-01-11 21:59:00 Test Item Value Reference Range Interpretation Comments MCHC (test code = MCHC) 33.7 32.0-36.0 [facility] [id number] 21:59:00 Test Item Value Reference Range Interpretation Comments RDW (test code = RDW) 12.9 11.5-14.5 [place] 107530-01-11 21:59:00 Test Item Value Reference Range Interpretation Comments Platelet (test code = Platelet) 192 133-450 [facility] PasoLnvyxctYOLCWRYECD6337-62-49 21:59:00 Test Item Value Reference Range Interpretation Comments MPV (test code = MPV) 9.6 7.4-10.4 [facility] [id number] 21:59:00 Test Item Value Reference Range Interpretation Comments PT (test code = PT) 13.7 s 12.0-14.7 [facility] PasoPhpolgwHCHPHHOWOL7597-04-16 21:59:00 Test Item Value Reference Range Interpretation Comments INR (test code = INR) 1.05 1 0.85-1.17 [place] 107530-01-11 21:59:00 Test Item Value Reference Range Interpretation Comments Segs (test code = Segs) 67.6 45.0-75.0 [facility] [id number] 21:59:00 Test Item Value Reference Range Interpretation Comments Lymphocytes (test code = Lymphocytes) 23.6 20.0-40.0 [place] 107530-01-11 21:59:00 Test Item Value Reference Range Interpretation Comments Monocytes (test code = Monocytes) 5.8 2.0-12.0 [place] 107530-01-11 21:59:00 Test Item Value Reference Range Interpretation Comments Eosinophils (test code = 2.5 See_Comment [A utomated message] The Eosinophils) system which ge nerated this result tra nsmitted reference range : <=4.0. The reference r lily was not used to int erpret this result as normal/abnormal . [place] 107530-01-11 21:59:00 Test Item Value Reference Range Interpretation Comments Basophils (test code = 0.5 See_Comment [Aut omated message] The Basophils) system which ge nerated this result tra nsmitted reference range : <=1.0. The reference r lily was not used to int erpret this result as normal/abnormal . [facility] [id number] 21:59:00 Test Item Value Reference Range Interpretation Comments Neutrophils # (test code = Neutrophils 5.1 1.5-8.1 #) [facility] PasoJeoimimVFAPEBETBV7081-27-16 21:59:00 Test Item Value Reference Range Interpretation Comments Lymphocytes # (test code = Lymphocytes 1.8 1.0-5.5 #) [facility] PasoNypqvkxQIDYARKNSE7806-03-59 21:59:00 Test Item Value Reference Range Interpretation Comments Monocytes # (test code 0.4 See_Comment [Aut omated message] The = Monocytes #) system which generated this result tra nsmitted reference range : <=0.8. The reference r lily was not used to int erpret this result as normal/abnormal . [facility] PasoKaohwqkLXHDFTVNRB9009-56-96 21:59:00 Test Item Value Reference Range Interpretation Comments Eosinophils # (test code 0.2 See_Comment [A utomated message] The = Eosinophils #) system whic h generated this result tra nsmitted reference range : <=0.5. The reference r lily was not used to int erpret this result as normal/abnormal . [facility] AND [id number] 21:59:00 Test Item Value Reference Range Interpretation Comments UA Color (test code = Yellow *NA*(04/09/19 UA Color) 3:59 PM) [facility] AND [id number] 21:59:00 Test Item Value Reference Range Interpretation Comments UA Turbidity (test code = Clear (04/09/19 3:59 UA Turbidity) PM) [facility] AND [id number] 21:59:00 Test Item Value Reference Range Interpretation Comments UA Spec Grav (test code = UA Spec 1.010 1 Grav) [facility] AND [id number] 21:59:00 Test Item Value Reference Range Interpretation Comments UA pH (test code = UA pH) 6.0 1 5.0-8.0 [facility] AND [id number] 21:59:00 Test Item Value Reference Range Interpretation Comments UA Protein (test code Negative (04/09/19 3:59 = UA Protein) PM) [facility] AND [id number] 21:59:00 Test Item Value Reference Range Interpretation Comments UA Glucose (test code Negative (04/09/19 3:59 = [facility]A Glucose) PM) [facility] [id number] 21:59:00 Test Item Value Reference Range Interpretation Comments UA Ketones (test code Negative *NA*(04/09/19 = UA Ketones) 3:59 PM) [facility] [id number] 21:59:00 Test Item Value Reference Range Interpretation Comments UA Bili (test code = Negative *NA*(04/09/19 UA Bili) 3:59 PM) [facility] AND [id number] 21:59:00 Test Item Value Reference Range Interpretation Comments UA Blood (test code = Trace *ABN*(04/09/19 UA Blood) 3:59 PM) [facility] AND [id number] 21:59:00 Test Item Value Reference Range Interpretation Comments UA Urobilinogen (test code = UA 0.2 0.1-1.0 Urobilinogen) [facility] AND [id number] 21:59:00 Test Item Value Reference Range Interpretation Comments UA Nitrite (test code Negative (04/09/19 3:59 = UA Nitrite) PM) [facility] AND [id number] 21:59:00 Test Item Value Reference Range Interpretation Comments UA Leuk Est (test Negative (04/09/19 3:59 code = UA Leuk Est) PM) [facility] AND [id number] 21:59:00 Test Item Value Reference Range Interpretation Comments UA Sq Epi (test code = UA Sq Occasional /LPF Epi) [facility] AND [id number] 21:59:00 Test Item Value Reference Range Interpretation Comments UA WBC (test code = UA None Seen (04/09/19 3:59 WBC) PM) [facility] AND [id number] 21:59:00 Test Item Value Reference Range Interpretation Comments UA RBC (test code = 3-5 /HPF See_Comment [Automa shaun message] The UA RBC) system which ge nerated this result tra nsmitted reference range : <=2. The reference range was not used to interpr et this result as jackeline l/abnormal. [facility] AND [id number] 21:59:00 Test Item Value Reference Range Interpretation Comments UA Bacteria (test code = None Seen (04/09/19 UA Bacteria) 3:59 PM) [facility] UptownNexgenceAC [id number] 21:59:00 Test Item Value Reference Range Interpretation Comments Total CK (test code = Total CK) 93 12-191 [facility] [id number] 21:59:00 Test Item Value Reference Range Interpretation Comments Troponin-I (test code 0.03 See_Comment [Auto mated message] The = Troponin-I) system which g enerated this result transmit shaun reference range : <=0.40. The reference r lily was not used to interpr et this result as jackeline l/abnormal. [facility] fav.or.it [id number] 21:59:00 Test Item Value Reference Range Interpretation Comments Glucose Lvl (test code = Glucose Lvl) 142 70-99 [facility] [id number] 21:59:00 Test Item Value Reference Range Interpretation Comments BUN (test code = BUN) 13 7-22 [facility] [id number] 21:59:00 Test Item Value Reference Range Interpretation Comments Creatinine Lvl (test code = Creatinine 0.79 0.50-1.40 Lvl) [facility] [id number] 21:59:00 Test Item Value Reference Range Interpretation Comments Sodium Lvl (test code = Sodium Lvl) 131 135-145 [facility] [id number] 21:59:00 Test Item Value Reference Range Interpretation Comments Potassium Lvl (test code = Potassium 3.4 3.5-5.1 Lvl) [facility] [id number] 21:59:00 Test Item Value Reference Range Interpretation Comments Chloride Lvl (test code = Chloride Lvl) 98 95-109 [facility] [id number] 21:59:00 Test Item Value Reference Range Interpretation Comments CO2 (test code = CO2) 33 24-32 [facility] [id number] 21:59:00 Test Item Value Reference Range Interpretation Comments Calcium Lvl (test code = Calcium Lvl) 9.3 8.5-10.5 [facility] [id number] 21:59:00 Test Item Value Reference Range Interpretation Comments Total Protein (test code = Total 8.1 6.4-8.4 Protein) [facility] [id number] 21:59:00 Test Item Value Reference Range Interpretation Comments Albumin Lvl (test code = Albumin Lvl) 3.6 3.5-5.0 [facility] [id number] 21:59:00 Test Item Value Reference Range Interpretation Comments ALT (test code = ALT) 18 See_Comment [Auto mated message] The system which ge nerated this result transmit shaun reference range : <=65. The reference range was not used to interpr et this result as jackeline l/abnormal. [facility] [id number] 21:59:00 Test Item Value Reference Range Interpretation Comments AST (test code = AST) 21 See_Comment [Auto mated message] The system which ge nerated this result transmit shaun reference range : <=37. The reference range was not used to interpr et this result as jackeline l/abnormal. [facility] [id number] 21:59:00 Test Item Value Reference Range Interpretation Comments Alk Phos (test code = Alk Phos) 95 39-136 [facility] [id number] 21:59:00 Test Item Value Reference Range Interpretation Comments Bili Total (test code = Bili Total) 0.5 0.2-1.3 [facility] [id number] 21:59:00 Test Item Value Reference Range Interpretation Comments AGAP (test code = AGAP) 3.4 10.0-20.0 [facility] [id number] 21:59:00 Test Item Value Reference Range Interpretation Comments B/C Ratio (test code = B/C Ratio) 16 1 6-25 [facility] [id number] 21:59:00 Test Item Value Reference Range Interpretation Comments Globulin (test code = Globulin) 4.5 2.7-4.2 [facility] fav.or.it [id number] 21:59:00 Test Item Value Reference Range Interpretation Comments A/G Ratio (test code = A/G Ratio) 0.8 1 0.7-1.6 [facility] [id number] 21:59:00 Test Item Value Reference Range Interpretation Comments eGFR (test code = eGFR) 78 [facility] [id number] 21:59:00 Test Item Value Reference Range Interpretation Comments Lipase Lvl (test code = Lipase Lvl) 112 73-393 [facility] [id number] 21:59:00 Test Item Value Reference Range Interpretation Comments Magnesium Lvl (test code = Magnesium 1.6 1.8-2.4 Lvl) [facility] PasoKvadvwfEUZATWVQXA8963-10-06 21:59:00 Test Item Value Reference Range Interpretation Comments WBC (test code = WBC) 7.6 3.7-10.4 [facility] [id number] 21:59:00 Test Item Value Reference Range Interpretation Comments RBC (test code = RBC) 4.45 4.20-5.40 [facility] Pa[id number] 21:59:00 Test Item Value Reference Range Interpretation Comments Hgb (test code = Hgb) 13.6 12.0-16.0 [facility] [id number] 21:59:00 Test Item Value Reference Range Interpretation Comments Hct (test code = Hct) 40.3 36.0-48.0 [facility] PasoHapnvtsQYKBKEZUGR8335-95-25 21:59:00 Test Item Value Reference Range Interpretation Comments MCV (test code = MCV) 90.6 80.0-98.0 [id number] 21:59:00 Test Item Value Reference Range Interpretation Comments MCH (test code = MCH) 30.5 pg 27.0-31.0 [facility] [id number] 21:59:00 Test Item Value Reference Range Interpretation Comments MCHC (test code = MCHC) 33.7 32.0-36.0 [facility] PasoLkkxjwaCIOXAEXMHZ0572-73-28 21:59:00 Test Item Value Reference Range Interpretation Comments RDW (test code = RDW) 12.9 11.5-14.5 [facility] [id number] 21:59:00 Test Item Value Reference Range Interpretation Comments Platelet (test code = Platelet) 192 133-450 [facility] [id number] 21:59:00 Test Item Value Reference Range Interpretation Comments MPV (test code = MPV) 9.6 7.4-10.4 [facility] [id number] 21:59:00 Test Item Value Reference Range Interpretation Comments PT (test code = PT) 13.7 s 12.0-14.7 [facility] [id number] 21:59:00 Test Item Value Reference Range Interpretation Comments INR (test code = INR) 1.05 1 0.85-1.17 [facility] PasoHmplbgeQWVATIHFQR3965-15-86 21:59:00 Test Item Value Reference Range Interpretation Comments Segs (test code = Segs) 67.6 45.0-75.0 [facility] PasoKiqoauyKIWNKVRURP4585-17-86 21:59:00 Test Item Value Reference Range Interpretation Comments Lymphocytes (test code = Lymphocytes) 23.6 20.0-40.0 [facility] PasoOvxddqwPAYTACFEOF2484-50-46 21:59:00 Test Item Value Reference Range Interpretation Comments Monocytes (test code = Monocytes) 5.8 2.0-12.0 [facility] PasoBlbpuhgINMNVAUATH7800-32-74 21:59:00 Test Item Value Reference Range Interpretation Comments Eosinophils (test code = 2.5 See_Comment [A utomated message] The Eosinophils) system which ge nerated this result tra nsmitted reference range : <=4.0. The reference r lily was not used to int erpret this result as normal/abnormal . [facility] PasoOnahhoiJSZKPKRFHV1329-82-77 21:59:00 Test Item Value Reference Range Interpretation Comments Basophils (test code = 0.5 See_Comment [Aut omated message] The Basophils) system which ge nerated this result tra nsmitted reference range : <=1.0. The reference r lily was not used to int erpret this result as normal/abnormal . [facility] PasoAgqbtbiHWSAZKXTQO8306-72-70 21:59:00 Test Item Value Reference Range Interpretation Comments Neutrophils # (test code = Neutrophils 5.1 1.5-8.1 #) [facility] PasoKtjigghDSNVXLGVYM5455-23-86 21:59:00 Test Item Value Reference Range Interpretation Comments Lymphocytes # (test code = Lymphocytes 1.8 1.0-5.5 #) [facility] PasoEiwlvqhBTBDXHIDTZ0458-10-63 21:59:00 Test Item Value Reference Range Interpretation Comments Monocytes # (test code 0.4 See_Comment [Aut omated message] The = Monocytes #) system which generated this result tra nsmitted reference range : <=0.8. The reference r lily was not used to int erpret this result as normal/abnormal . [facility]GmnlasbVWNHDHPCGU1287-83-63 21:59:00 Test Item Value Reference Range Interpretation Comments Eosinophils # (test code 0.2 See_Comment [A utomated message] The = Eosinophils #) system whic h generated this result tra nsmitted reference range : <=0.5. The reference r lily was not used to int erpret this result as normal/abnormal . [facility] AND [id number] 21:59:00 Test Item Value Reference Range Interpretation Comments UA Color (test code = Yellow *NA*(04/09/19 UA Color) 3:59 PM) [facility] AND [id number] 21:59:00 Test Item Value Reference Range Interpretation Comments UA Turbidity (test code = Clear (04/09/19 3:59 UA Turbidity) PM) [facility] AND [id number] 21:59:00 Test Item Value Reference Range Interpretation Comments UA Spec Grav (test code = UA Spec 1.010 1 Grav) [facility] AND [id number] 21:59:00 Test Item Value Reference Range Interpretation Comments UA pH (test code = UA pH) 6.0 1 5.0-8.0 [facility] AND [id number] 21:59:00 Test Item Value Reference Range Interpretation Comments UA Protein (test code Negative (04/09/19 3:59 = UA Protein) PM) [facility] AND [id number] 21:59:00 Test Item Value Reference Range Interpretation Comments UA Glucose (test code Negative (04/09/19 3:59 = UA Glucose) PM) [facility] AND [id number] 21:59:00 Test Item Value Reference Range Interpretation Comments UA Ketones (test code Negative *NA*(04/09/19 = UA Ketones) 3:59 PM) [facility] AND [id number] 21:59:00 Test Item Value Reference Range Interpretation Comments UA Bili (test code = Negative *NA*(04/09/19 UA Bili) 3:59 PM) [facility] AND [id number] 21:59:00 Test Item Value Reference Range Interpretation Comments UA Blood (test code = Trace *ABN*(04/09/19 UA Blood) 3:59 PM) [facility] [id number] 21:59:00 Test Item Value Reference Range Interpretation Comments UA Urobilinogen (test code = UA 0.2 0.1-1.0 Urobilinogen) [facility] [id number] 21:59:00 Test Item Value Reference Range Interpretation Comments UA Nitrite (test code Negative (04/09/19 3:59 = UA Nitrite) PM) [facility] [id number] 21:59:00 Test Item Value Reference Range Interpretation Comments UA Leuk Est (test Negative (04/09/19 3:59 code = UA Leuk Est) PM) [facility] [id number] 21:59:00 Test Item Value Reference Range Interpretation Comments UA Sq Epi (test code = UA Sq Occasional /LPF Epi) [facility] [id number] 21:59:00 Test Item Value Reference Range Interpretation Comments UA WBC (test code = UA None Seen (04/09/19 3:59 WBC) PM) [facility] AND [id number] 21:59:00 Test Item Value Reference Range Interpretation Comments UA RBC (test code = 3-5 /HPF See_Comment [Automa shaun message] The UA RBC) system which ge nerated this result tra nsmitted reference range : <=2. The reference range was not used to interpr et this result as jackeline l/abnormal. [facility] [id number] 21:59:00 Test Item Value Reference Range Interpretation Comments UA Bacteria (test code = None Seen (04/09/19 UA Bacteria) 3:59 PM) [facility] [id number] 21:59:00 Test Item Value Reference Range Interpretation Comments Total CK (test code = Total CK) 93 12-191 [facility] [id number] 21:59:00 Test Item Value Reference Range Interpretation Comments Troponin-I (test code 0.03 See_Comment [Auto mated message] The = Troponin-I) system which g enerated this result transmit shaun reference range : <=0.40. The reference r lily was not used to interpr et this result as jackeline l/abnormal. [facility]annCHEM [id number] 21:59:00 Test Item Value Reference Range Interpretation Comments Glucose Lvl (test code = Glucose Lvl) 142 70-99 [place] 626920-01-11 21:59:00 Test Item Value Reference Range Interpretation Comments BUN (test code = BUN) 13 7-22 [place] 626920-01-11 21:59:00 Test Item Value Reference Range Interpretation Comments Creatinine Lvl (test code = Creatinine 0.79 0.50-1.40 Lvl) [place] 626920-01-11 21:59:00 Test Item Value Reference Range Interpretation Comments Sodium Lvl (test code = Sodium Lvl) 131 135-145 [place] 626920-01-11 21:59:00 Test Item Value Reference Range Interpretation Comments Potassium Lvl (test code = Potassium 3.4 3.5-5.1 Lvl) [place] 626920-01-11 21:59:00 Test Item Value Reference Range Interpretation Comments Chloride Lvl (test code = Chloride Lvl) 98 95-109 [place] 626920-01-11 21:59:00 Test Item Value Reference Range Interpretation Comments CO2 (test code = CO2) 33 24-32 [place] 626920-01-11 21:59:00 Test Item Value Reference Range Interpretation Comments Calcium Lvl (test code = Calcium Lvl) 9.3 8.5-10.5 [place] 626920-01-11 21:59:00 Test Item Value Reference Range Interpretation Comments Total Protein (test code = Total 8.1 6.4-8.4 Protein) [place] 626920-01-11 21:59:00 Test Item Value Reference Range Interpretation Comments Albumin Lvl (test code = Albumin Lvl) 3.6 3.5-5.0 [place] 626920-01-11 21:59:00 Test Item Value Reference Range Interpretation Comments ALT (test code = ALT) 18 See_Comment [Auto mated message] The system which ge nerated this result transmit shaun reference range : <=65. The reference range was not used to interpr et this result as jackeline l/abnormal. [place] 626920-01-11 21:59:00 Test Item Value Reference Range Interpretation Comments AST (test code = AST) 21 See_Comment [Auto mated message] The system which ge nerated this result transmit shaun reference range : <=37. The reference range was not used to interpr et this result as jackeline l/abnormal. [facility]2020-01-11 21:59:00 Test Item Value Reference Range Interpretation Comments Alk Phos (test code = Alk Phos) 95 39-136 [place] 626920-01-11 21:59:00 Test Item Value Reference Range Interpretation Comments Bili Total (test code = Bili Total) 0.5 0.2-1.3 [place] 626920-01-11 21:59:00 Test Item Value Reference Range Interpretation Comments AGAP (test code = AGAP) 3.4 10.0-20.0 [place] 626920-01-11 21:59:00 Test Item Value Reference Range Interpretation Comments B/C Ratio (test code = B/C Ratio) 16 1 6-25 [place] 626920-01-11 21:59:00 Test Item Value Reference Range Interpretation Comments Globulin (test code = Globulin) 4.5 2.7-4.2 [place] 626920-01-11 21:59:00 Test Item Value Reference Range Interpretation Comments A/G Ratio (test code = A/G Ratio) 0.8 1 0.7-1.6 [place] [address]-01-11 21:59:00 Test Item Value Reference Range Interpretation Comments eGFR (test code = eGFR) 78 [place] 626920-01-11 21:59:00 Test Item Value Reference Range Interpretation Comments Lipase Lvl (test code = Lipase Lvl) 112 73-393 [place] 626920-01-11 21:59:00 Test Item Value Reference Range Interpretation Comments Magnesium Lvl (test code = Magnesium 1.6 1.8-2.4 Lvl) [place] 107530-01-11 21:59:00 Test Item Value Reference Range Interpretation Comments WBC (test code = WBC) 7.6 3.7-10.4 [place] 107530-01-11 21:59:00 Test Item Value Reference Range Interpretation Comments RBC (test code = RBC) 4.45 4.20-5.40 [place] 107530-01-11 21:59:00 Test Item Value Reference Range Interpretation Comments Hgb (test code = Hgb) 13.6 12.0-16.0 [facility] PasoZualtotHBFZZDHUYE8652-31-49 21:59:00 Test Item Value Reference Range Interpretation Comments Hct (test code = Hct) 40.3 36.0-48.0 [facility] PasoFnitsupTOEZRZTHOI5779-75-93 21:59:00 Test Item Value Reference Range Interpretation Comments MCV (test code = MCV) 90.6 80.0-98.0 [facility] PasoPiairwsBTYRPDRVKO1017-18-31 21:59:00 Test Item Value Reference Range Interpretation Comments MCH (test code = MCH) 30.5 pg 27.0-31.0 [facility] PasoWuzadyyKWZLAHAAGE5597-17-21 21:59:00 Test Item Value Reference Range Interpretation Comments MCHC (test code = MCHC) 33.7 32.0-36.0 [facility] PasoLetrlzyVNNAULWJJI4755-09-67 21:59:00 Test Item Value Reference Range Interpretation Comments RDW (test code = RDW) 12.9 11.5-14.5 [facility] PasoUakjyedYCPGWTBWGB9870-42-06 21:59:00 Test Item Value Reference Range Interpretation Comments Platelet (test code = Platelet) 192 133-450 [facility] PasoXafttkgJGPOWAPBJZ6126-48-98 21:59:00 Test Item Value Reference Range Interpretation Comments MPV (test code = MPV) 9.6 7.4-10.4 [facility] PasoRpsdrkyQNMSXGIPSE4848-27-87 21:59:00 Test Item Value Reference Range Interpretation Comments PT (test code = PT) 13.7 s 12.0-14.7 [facility] PasoGjabkotEKOHNRGYVA8526-00-03 21:59:00 Test Item Value Reference Range Interpretation Comments INR (test code = INR) 1.05 1 0.85-1.17 [place] 107530-01-11 21:59:00 Test Item Value Reference Range Interpretation Comments Segs (test code = Segs) 67.6 45.0-75.0 [place] 107530-01-11 21:59:00 Test Item Value Reference Range Interpretation Comments Lymphocytes (test code = Lymphocytes) 23.6 20.0-40.0 [facility] PasoHjsphwlNCLVJGHOJN7513-15-49 21:59:00 Test Item Value Reference Range Interpretation Comments Monocytes (test code = Monocytes) 5.8 2.0-12.0 [facility] PasoUzmqtkfVGPWSWLDYE7708-75-69 21:59:00 Test Item Value Reference Range Interpretation Comments Eosinophils (test code = 2.5 See_Comment [A utomated message] The Eosinophils) system which ge nerated this result tra nsmitted reference range : <=4.0. The reference r lily was not used to int erpret this result as normal/abnormal . [facility] PasoYvqtiwdYKYGZKFLGQ8518-69-91 21:59:00 Test Item Value Reference Range Interpretation Comments Basophils (test code = 0.5 See_Comment [Aut omated message] The Basophils) system which ge nerated this result tra nsmitted reference range : <=1.0. The reference r lily was not used to int erpret this result as normal/abnormal . [facility] PasoUuegacyHVSWDVMUUA5269-71-94 21:59:00 Test Item Value Reference Range Interpretation Comments Neutrophils # (test code = Neutrophils 5.1 1.5-8.1 #) [facility] PasoIpzhqsjMXWRJJOHRR6218-99-00 21:59:00 Test Item Value Reference Range Interpretation Comments Lymphocytes # (test code = Lymphocytes 1.8 1.0-5.5 #) [facility] PasoOiagcmhMVCXXCCOUQ9116-36-47 21:59:00 Test Item Value Reference Range Interpretation Comments Monocytes # (test code 0.4 See_Comment [Aut omated message] The = Monocytes #) system which generated this result tra nsmitted reference range : <=0.8. The reference r lily was not used to int erpret this result as normal/abnormal . [facility] PasoKxzynirWFMFWHYIJW5988-49-15 21:59:00 Test Item Value Reference Range Interpretation Comments Eosinophils # (test code 0.2 See_Comment [A utomated message] The = Eosinophils #) system whic h generated this result tra nsmitted reference range : <=0.5. The reference r lily was not used to int erpret this result as normal/abnormal . [facility] AND [id number] 21:59:00 Test Item Value Reference Range Interpretation Comments UA Color (test code = Yellow *NA*(04/09/19 UA Color) 3:59 PM) [facility] AND [id number] 21:59:00 Test Item Value Reference Range Interpretation Comments UA Turbidity (test code = Clear (04/09/19 3:59 UA Turbidity) PM) [facility] AND [id number] 21:59:00 Test Item Value Reference Range Interpretation Comments UA Spec Grav (test code = UA Spec 1.010 1 Grav) [facility] AND [id number] 21:59:00 Test Item Value Reference Range Interpretation Comments UA pH (test code = UA pH) 6.0 1 5.0-8.0 [facility] AND [id number] 21:59:00 Test Item Value Reference Range Interpretation Comments UA Protein (test code Negative (04/09/19 3:59 = UA Protein) PM) [facility] [id number] 21:59:00 Test Item Value Reference Range Interpretation Comments UA Glucose (test code Negative (04/09/19 3:59 = UA Glucose) PM) [facility] AND [id number] 21:59:00 Test Item Value Reference Range Interpretation Comments UA Ketones (test code Negative *NA*(04/09/19 = UA Ketones) 3:59 PM) [facility] AND [id number] 21:59:00 Test Item Value Reference Range Interpretation Comments UA Bili (test code = Negative *NA*(04/09/19 UA Bili) 3:59 PM) [facility] AND [id number] 21:59:00 Test Item Value Reference Range Interpretation Comments UA Blood (test code = Trace *ABN*(04/09/19 UA Blood) 3:59 PM) [facility] AND [id number] 21:59:00 Test Item Value Reference Range Interpretation Comments UA Urobilinogen (test code = UA 0.2 0.1-1.0 Urobilinogen) [facility] AND [id number] 21:59:00 Test Item Value Reference Range Interpretation Comments UA Nitrite (test code Negative (04/09/19 3:59 = UA Nitrite) PM) [facility] AND [id number] 21:59:00 Test Item Value Reference Range Interpretation Comments UA Leuk Est (test Negative (04/09/19 3:59 code = UA Leuk Est) PM) [facility] AND [id number] 21:59:00 Test Item Value Reference Range Interpretation Comments UA Sq Epi (test code = UA Sq Occasional /LPF Epi) [facility]ownadrianaR[facility] AND [id number] 21:59:00 Test Item Value Reference Range Interpretation Comments UA WBC (test code = UA None Seen (04/09/19 3:59 WBC) PM) [facility] AND [id number] 21:59:00 Test Item Value Reference Range Interpretation Comments UA RBC (test code = 3-5 /HPF See_Comment [Automa shaun message] The UA RBC) system which ge nerated this result tra nsmitted reference range : <=2. The reference range was not used to interpr et this result as jackeline l/abnormal. [facility] AND [id number] 21:59:00 Test Item Value Reference Range Interpretation Comments UA Bacteria (test code = None Seen (04/09/19 UA Bacteria) 3:59 PM) [facility] UptownTabSquareCARDIAC [id number] 21:59:00 Test Item Value Reference Range Interpretation Comments Total CK (test code = Total CK) 93 12-191 [facility] UptownTabSquareCARPark Energy ServicesAC [id number] 21:59:00 Test Item Value Reference Range Interpretation Comments Troponin-I (test code 0.03 See_Comment [Auto mated message] The = Troponin-I) system which g enerated this result transmit shaun reference range : <=0.40. The reference r lily was not used to interpr et this result as jackleine l/abnormal. [facility] fav.or.it [id number] 21:59:00 Test Item Value Reference Range Interpretation Comments Glucose Lvl (test code = Glucose Lvl) 142 70-99 [facility] fav.or.it [id number] 21:59:00 Test Item Value Reference Range Interpretation Comments BUN (test code = BUN) 13 7-22 [facility] fav.or.it [id number] 21:59:00 Test Item Value Reference Range Interpretation Comments Creatinine Lvl (test code = Creatinine 0.79 0.50-1.40 Lvl) [facility] fav.or.it [id number] 21:59:00 Test Item Value Reference Range Interpretation Comments Sodium Lvl (test code = Sodium Lvl) 131 135-145 [facility] fav.or.it [id number] 21:59:00 Test Item Value Reference Range Interpretation Comments Potassium Lvl (test code = Potassium 3.4 3.5-5.1 Lvl) [facility] UptownAdQuantic [id number] 21:59:00 Test Item Value Reference Range Interpretation Comments Chloride Lvl (test code = Chloride Lvl) 98 95-109 [facility]ownAdQu[facility] [id number] 21:59:00 Test Item Value Reference Range Interpretation Comments CO2 (test code = CO2) 33 24-32 [facility]ptownTabSquareNOV[facility] MED[facility] [id number] 21:59:00 Test Item Value Reference Range Interpretation Comments Calcium Lvl (test code = Calcium Lvl) 9.3 8.5-10.5 [facility]ownAdQu[facility] [id number] 21:59:00 Test Item Value Reference Range Interpretation Comments Total Protein (test code = Total 8.1 6.4-8.4 Protein) [facility]2020-01-11 21:59:00 Test Item Value Reference Range Interpretation Comments Albumin Lvl (test code = Albumin Lvl) 3.6 3.5-5.0 [facility]ownAd[facility] [id number] 21:59:00 Test Item Value Reference Range Interpretation Comments ALT (test code = ALT) 18 See_Comment [Auto mated message] The system which ge nerated this result transmit shaun reference range : <=65. The reference range was not used to interpr et this result as jackeline l/abnormal. [facility]Ad[facility] [id number] 21:59:00 Test Item Value Reference Range Interpretation Comments AST (test code = AST) 21 See_Comment [Auto mated message] The system which ge nerated this result transmit shaun reference range : <=37. The reference range was not used to interpr et this result as jackeline l/abnormal. [facility] fav.or.it [id number] 21:59:00 Test Item Value Reference Range Interpretation Comments Alk Phos (test code = Alk Phos) 95 39-136 [facility]Ad[facility] [id number] 21:59:00 Test Item Value Reference Range Interpretation Comments Bili Total (test code = Bili Total) 0.5 0.2-1.3 [facility] [id number] 21:59:00 Test Item Value Reference Range Interpretation Comments AGAP (test code = AGAP) 3.4 10.0-20.0 [facility]ownAd[facility] [id number] 21:59:00 Test Item Value Reference Range Interpretation Comments B/C Ratio (test code = B/C Ratio) 16 1 6-25 [place] 626920-01-11 21:59:00 Test Item Value Reference Range Interpretation Comments Globulin (test code = Globulin) 4.5 2.7-4.2 [place] [address]-01-11 21:59:00 Test Item Value Reference Range Interpretation Comments A/G Ratio (test code = A/G Ratio) 0.8 1 0.7-1.6 [place] [address]-01-11 21:59:00 Test Item Value Reference Range Interpretation Comments eGFR (test code = eGFR) 78 [place] 626920-01-11 21:59:00 Test Item Value Reference Range Interpretation Comments Lipase Lvl (test code = Lipase Lvl) 112 73-393 [place] 626920-01-11 21:59:00 Test Item Value Reference Range Interpretation Comments Magnesium Lvl (test code = Magnesium 1.6 1.8-2.4 Lvl) [place] 107530-01-11 21:59:00 Test Item Value Reference Range Interpretation Comments WBC (test code = WBC) 7.6 3.7-10.4 [place] [address]-01-11 21:59:00 Test Item Value Reference Range Interpretation Comments RBC (test code = RBC) 4.45 4.20-5.40 [place] [address]-01-11 21:59:00 Test Item Value Reference Range Interpretation Comments Hgb (test code = Hgb) 13.6 12.0-16.0 [place] [address]-01-11 21:59:00 Test Item Value Reference Range Interpretation Comments Hct (test code = Hct) 40.3 36.0-48.0 [place] [address]-01-11 21:59:00 Test Item Value Reference Range Interpretation Comments MCV (test code = MCV) 90.6 80.0-98.0 [place] [address]-01-11 21:59:00 Test Item Value Reference Range Interpretation Comments MCH (test code = MCH) 30.5 pg 27.0-31.0 [place] [address]-01-11 21:59:00 Test Item Value Reference Range Interpretation Comments MCHC (test code = MCHC) 33.7 32.0-36.0 [facility] PasoB[id number] 21:59:00 Test Item Value Reference Range Interpretation Comments RDW (test code = RDW) 12.9 11.5-14.5 [facility] PasoXmnevuuSSXDJJKVTA1009-73-07 21:59:00 Test Item Value Reference Range Interpretation Comments Platelet (test code = Platelet) 192 133-450 [facility] PasoIcjcnllGCWZJKCELY8710-23-75 21:59:00 Test Item Value Reference Range Interpretation Comments MPV (test code = MPV) 9.6 7.4-10.4 [facility] PasoDbggkknPJMTECTDKW4518-41-89 21:59:00 Test Item Value Reference Range Interpretation Comments PT (test code = PT) 13.7 s 12.0-14.7 [facility] Pa[id number] 21:59:00 Test Item Value Reference Range Interpretation Comments INR (test code = INR) 1.05 1 0.85-1.17 [facility] PasoAtuidwqXZVAYYZELX2986-53-45 21:59:00 Test Item Value Reference Range Interpretation Comments Segs (test code = Segs) 67.6 45.0-75.0 [facility] PasoAcidnejEBNLVRSVTI6016-92-55 21:59:00 Test Item Value Reference Range Interpretation Comments Lymphocytes (test code = Lymphocytes) 23.6 20.0-40.0 [facility] PasoLrvxyndYLAZTZKCXC3264-34-09 21:59:00 Test Item Value Reference Range Interpretation Comments Monocytes (test code = Monocytes) 5.8 2.0-12.0 [facility] PasoKfwuiifYNKHWLMHSI0619-06-09 21:59:00 Test Item Value Reference Range Interpretation Comments Eosinophils (test code = 2.5 See_Comment [A utomated message] The Eosinophils) system which ge nerated this result tra nsmitted reference range : <=4.0. The reference r lily was not used to int erpret this result as normal/abnormal . [facility] PasoVniwpwaJLYOYYBKTQ4194-12-60 21:59:00 Test Item Value Reference Range Interpretation Comments Basophils (test code = 0.5 See_Comment [Aut omated message] The Basophils) system which ge nerated this result tra nsmitted reference range : <=1.0. The reference r lily was not used to int erpret this result as normal/abnormal . [place] 107530-01-11 21:59:00 Test Item Value Reference Range Interpretation Comments Neutrophils # (test code = Neutrophils 5.1 1.5-8.1 #) [facility]KpuumdqNKJVQQXCWA1908-22-31 21:59:00 Test Item Value Reference Range Interpretation Comments Lymphocytes # (test code = Lymphocytes 1.8 1.0-5.5 #) [facility] PasoFupcyonSHHBDMKNRY2709-32-18 21:59:00 Test Item Value Reference Range Interpretation Comments Monocytes # (test code 0.4 See_Comment [Aut omated message] The = Monocytes #) system which generated this result tra nsmitted reference range : <=0.8. The reference r lily was not used to int erpret this result as normal/abnormal . [facility] Pa[id number] 21:59:00 Test Item Value Reference Range Interpretation Comments Eosinophils # (test code 0.2 See_Comment [A utomated message] The = Eosinophils #) system whic h generated this result tra nsmitted reference range : <=0.5. The reference r lily was not used to int erpret this result as normal/abnormal . [facility] AND [id number] 21:59:00 Test Item Value Reference Range Interpretation Comments UA Color (test code = Yellow *NA*(04/09/19 UA Color) 3:59 PM) [facility] AND [id number] 21:59:00 Test Item Value Reference Range Interpretation Comments UA Turbidity (test code = Clear (04/09/19 3:59 UA Turbidity) PM) [facility] AND [id number] 21:59:00 Test Item Value Reference Range Interpretation Comments UA Spec Grav (test code = UA Spec 1.010 1 Grav) [facility] AND [id number] 21:59:00 Test Item Value Reference Range Interpretation Comments UA pH (test code = UA pH) 6.0 1 5.0-8.0 [facility] AND [id number] 21:59:00 Test Item Value Reference Range Interpretation Comments UA Protein (test code Negative (04/09/19 3:59 = UA Protein) PM) [facility] AND [id number] 21:59:00 Test Item Value Reference Range Interpretation Comments UA Glucose (test code Negative (04/09/19 3:59 = [facility]A Glucose) PM) [facility] [id number] 21:59:00 Test Item Value Reference Range Interpretation Comments UA Ketones (test code Negative *NA*(04/09/19 = UA Ketones) 3:59 PM) [facility] [id number] 21:59:00 Test Item Value Reference Range Interpretation Comments UA Bili (test code = Negative *NA*(04/09/19 UA Bili) 3:59 PM) [facility] [id number] 21:59:00 Test Item Value Reference Range Interpretation Comments UA Blood (test code = Trace *ABN*(04/09/19 UA Blood) 3:59 PM) [facility] [id number] 21:59:00 Test Item Value Reference Range Interpretation Comments UA Urobilinogen (test code = UA 0.2 0.1-1.0 Urobilinogen) [facility] [id number] 21:59:00 Test Item Value Reference Range Interpretation Comments UA Nitrite (test code Negative (04/09/19 3:59 = UA Nitrite) PM) [facility] [id number] 21:59:00 Test Item Value Reference Range Interpretation Comments UA Leuk Est (test Negative (04/09/19 3:59 code = UA Leuk Est) PM) [facility] [id number] 21:59:00 Test Item Value Reference Range Interpretation Comments UA Sq Epi (test code = UA Sq Occasional /LPF Epi) [facility] [id number] 21:59:00 Test Item Value Reference Range Interpretation Comments UA WBC (test code = UA None Seen (04/09/19 3:59 WBC) PM) [facility] [id number] 21:59:00 Test Item Value Reference Range Interpretation Comments UA RBC (test code = 3-5 /HPF See_Comment [Automa shaun message] The UA RBC) system which ge nerated this result tra nsmitted reference range : <=2. The reference range was not used to interpr et this result as jackeline l/abnormal. [facility] [id number] 21:59:00 Test Item Value Reference Range Interpretation Comments UA Bacteria (test code = None Seen (04/09/19 UA Bacteria) 3:59 PM) [facility]ownTabSquareCARPark Energy ServicesAC [id number] 21:59:00 Test Item Value Reference Range Interpretation Comments Total CK (test code = Total CK) 93 12-191 [facility] [id number] 21:59:00 Test Item Value Reference Range Interpretation Comments Troponin-I (test code 0.03 See_Comment [Auto mated message] The = Troponin-I) system which g enerated this result transmit shaun reference range : <=0.40. The reference r lily was not used to interpr et this result as jackeline l/abnormal. [facility] [id number] 21:59:00 Test Item Value Reference Range Interpretation Comments Glucose Lvl (test code = Glucose Lvl) 142 70-99 [facility] [id number] 21:59:00 Test Item Value Reference Range Interpretation Comments BUN (test code = BUN) 13 7-22 [facility] [id number] 21:59:00 Test Item Value Reference Range Interpretation Comments Creatinine Lvl (test code = Creatinine 0.79 0.50-1.40 Lvl) [facility] [id number] 21:59:00 Test Item Value Reference Range Interpretation Comments Sodium Lvl (test code = Sodium Lvl) 131 135-145 [facility] [id number] 21:59:00 Test Item Value Reference Range Interpretation Comments Potassium Lvl (test code = Potassium 3.4 3.5-5.1 Lvl) [facility] [id number] 21:59:00 Test Item Value Reference Range Interpretation Comments Chloride Lvl (test code = Chloride Lvl) 98 95-109 [facility] [id number] 21:59:00 Test Item Value Reference Range Interpretation Comments CO2 (test code = CO2) 33 24-32 [facility] [id number] 21:59:00 Test Item Value Reference Range Interpretation Comments Calcium Lvl (test code = Calcium Lvl) 9.3 8.5-10.5 [facility] [id number] 21:59:00 Test Item Value Reference Range Interpretation Comments Total Protein (test code = Total 8.1 6.4-8.4 Protein) [facility] [id number] 21:59:00 Test Item Value Reference Range Interpretation Comments Albumin Lvl (test code = Albumin Lvl) 3.6 3.5-5.0 [facility] [id number] 21:59:00 Test Item Value Reference Range Interpretation Comments ALT (test code = ALT) 18 See_Comment [Auto mated message] The system which ge nerated this result transmit shaun reference range : <=65. The reference range was not used to interpr et this result as jackeline l/abnormal. [facility] [id number] 21:59:00 Test Item Value Reference Range Interpretation Comments AST (test code = AST) 21 See_Comment [Auto mated message] The system which ge nerated this result transmit shaun reference range : <=37. The reference range was not used to interpr et this result as jackeline l/abnormal. [facility] [id number] 21:59:00 Test Item Value Reference Range Interpretation Comments Alk Phos (test code = Alk Phos) 95 39-136 [facility] [id number] 21:59:00 Test Item Value Reference Range Interpretation Comments Bili Total (test code = Bili Total) 0.5 0.2-1.3 [facility] [id number] 21:59:00 Test Item Value Reference Range Interpretation Comments AGAP (test code = AGAP) 3.4 10.0-20.0 [facility] [id number] 21:59:00 Test Item Value Reference Range Interpretation Comments B/C Ratio (test code = B/C Ratio) 16 1 6-25 [facility] [id number] 21:59:00 Test Item Value Reference Range Interpretation Comments Globulin (test code = Globulin) 4.5 2.7-4.2 [facility] [id number] 21:59:00 Test Item Value Reference Range Interpretation Comments A/G Ratio (test code = A/G Ratio) 0.8 1 0.7-1.6 [facility] [id number] 21:59:00 Test Item Value Reference Range Interpretation Comments eGFR (test code = eGFR) 78 [facility] [id number] 21:59:00 Test Item Value Reference Range Interpretation Comments Lipase Lvl (test code = Lipase Lvl) 112 73-393 [facility]2020-01-11 21:59:00 Test Item Value Reference Range Interpretation Comments Magnesium Lvl (test code = Magnesium 1.6 1.8-2.4 Lvl) [facility] PasoAlanmagNJATYBJJAE1425-25-18 21:59:00 Test Item Value Reference Range Interpretation Comments WBC (test code = WBC) 7.6 3.7-10.4 [id number] 21:59:00 Test Item Value Reference Range Interpretation Comments RBC (test code = RBC) 4.45 4.20-5.40 [facility]awUvzqxwaHETWRDIVVF1528-37-82 21:59:00 Test Item Value Reference Range Interpretation Comments Hgb (test code = Hgb) 13.6 12.0-16.0 [facility] PasoEvouauhXAHXCAKHPG3887-98-03 21:59:00 Test Item Value Reference Range Interpretation Comments Hct (test code = Hct) 40.3 36.0-48.0 [facility] PasoYtnniafLQAXUZWRGU6108-33-22 21:59:00 Test Item Value Reference Range Interpretation Comments MCV (test code = MCV) 90.6 80.0-98.0 [id number] 21:59:00 Test Item Value Reference Range Interpretation Comments MCH (test code = MCH) 30.5 pg 27.0-31.0 [facility]awBfjpqjnDJJSMRVXAN1068-07-07 21:59:00 Test Item Value Reference Range Interpretation Comments MCHC (test code = MCHC) 33.7 32.0-36.0 [facility] PasoDflntzuEDULMHSOSX8309-44-12 21:59:00 Test Item Value Reference Range Interpretation Comments RDW (test code = RDW) 12.9 11.5-14.5 [id number] 21:59:00 Test Item Value Reference Range Interpretation Comments Platelet (test code = Platelet) 192 133-450 [facility]agin[id number] 21:59:00 Test Item Value Reference Range Interpretation Comments MPV (test code = MPV) 9.6 7.4-10.4 [facility] PasoSezduasFHFHHBCEMA9985-10-04 21:59:00 Test Item Value Reference Range Interpretation Comments PT (test code = PT) 13.7 s 12.0-14.7 [place] 107530-01-11 21:59:00 Test Item Value Reference Range Interpretation Comments INR (test code = INR) 1.05 1 0.85-1.17 [facility] PasoOcrzebwQVHYGMCOBJ7441-91-02 21:59:00 Test Item Value Reference Range Interpretation Comments Segs (test code = Segs) 67.6 45.0-75.0 [facility] PasoVqxbarlUATGBOBPZY1048-64-39 21:59:00 Test Item Value Reference Range Interpretation Comments Lymphocytes (test code = Lymphocytes) 23.6 20.0-40.0 [place] 107530-01-11 21:59:00 Test Item Value Reference Range Interpretation Comments Monocytes (test code = Monocytes) 5.8 2.0-12.0 [facility] PasoQujvclgOQLYPNSVKI9531-56-36 21:59:00 Test Item Value Reference Range Interpretation Comments Eosinophils (test code = 2.5 See_Comment [A utomated message] The Eosinophils) system which ge nerated this result tra nsmitted reference range : <=4.0. The reference r lily was not used to int erpret this result as normal/abnormal . [facility] PasoMypbgtpCONAJVWSDZ9460-53-77 21:59:00 Test Item Value Reference Range Interpretation Comments Basophils (test code = 0.5 See_Comment [Aut omated message] The Basophils) system which ge nerated this result tra nsmitted reference range : <=1.0. The reference r lily was not used to int erpret this result as normal/abnormal . [facility] PasoFeqdtxmQDNHCSBXVY7926-55-36 21:59:00 Test Item Value Reference Range Interpretation Comments Neutrophils # (test code = Neutrophils 5.1 1.5-8.1 #) [facility] PasoGtqbvqyEEENQDAMVO1028-53-05 21:59:00 Test Item Value Reference Range Interpretation Comments Lymphocytes # (test code = Lymphocytes 1.8 1.0-5.5 #) [place] 107530-01-11 21:59:00 Test Item Value Reference Range Interpretation Comments Monocytes # (test code 0.4 See_Comment [Aut omated message] The = Monocytes #) system which generated this result tra nsmitted reference range : <=0.8. The reference r lily was not used to int erpret this result as normal/abnormal . [place] 107530-01-11 21:59:00 Test Item Value Reference Range Interpretation Comments Eosinophils # (test code 0.2 See_Comment [A utomated message] The = Eosinophils #) system whic h generated this result tra nsmitted reference range : <=0.5. The reference r lily was not used to int erpret this result as normal/abnormal . [facility] AND [id number] 21:59:00 Test Item Value Reference Range Interpretation Comments UA Color (test code = Yellow *NA*(04/09/19 UA Color) 3:59 PM) [facility] AND [id number] 21:59:00 Test Item Value Reference Range Interpretation Comments UA Turbidity (test code = Clear (04/09/19 3:59 UA Turbidity) PM) [facility] AND [id number] 21:59:00 Test Item Value Reference Range Interpretation Comments UA Spec Grav (test code = UA Spec 1.010 1 Grav) [facility] AND [id number] 21:59:00 Test Item Value Reference Range Interpretation Comments UA pH (test code = UA pH) 6.0 1 5.0-8.0 [facility] AND [id number] 21:59:00 Test Item Value Reference Range Interpretation Comments UA Protein (test code Negative (04/09/19 3:59 = UA Protein) PM) [facility] [id number] 21:59:00 Test Item Value Reference Range Interpretation Comments UA Glucose (test code Negative (04/09/19 3:59 = UA Glucose) PM) [facility] AND [id number] 21:59:00 Test Item Value Reference Range Interpretation Comments UA Ketones (test code Negative *NA*(04/09/19 = UA Ketones) 3:59 PM) [facility] [id number] 21:59:00 Test Item Value Reference Range Interpretation Comments UA Bili (test code = Negative *NA*(04/09/19 UA Bili) 3:59 PM) [facility] AND [id number] 21:59:00 Test Item Value Reference Range Interpretation Comments UA Blood (test code = Trace *ABN*(04/09/19 UA Blood) 3:59 PM) [facility] [id number] 21:59:00 Test Item Value Reference Range Interpretation Comments UA Urobilinogen (test code = UA 0.2 0.1-1.0 Urobilinogen) [facility] AND [id number] 21:59:00 Test Item Value Reference Range Interpretation Comments UA Nitrite (test code Negative (04/09/19 3:59 = UA Nitrite) PM) [facility] AND [id number] 21:59:00 Test Item Value Reference Range Interpretation Comments UA Leuk Est (test Negative (04/09/19 3:59 code = UA Leuk Est) PM) [facility] AND [id number] 21:59:00 Test Item Value Reference Range Interpretation Comments UA Sq Epi (test code = UA Sq Occasional /LPF Epi) [facility] AND [id number] 21:59:00 Test Item Value Reference Range Interpretation Comments UA WBC (test code = UA None Seen (04/09/19 3:59 WBC) PM) [facility] AND [id number] 21:59:00 Test Item Value Reference Range Interpretation Comments UA RBC (test code = 3-5 /HPF See_Comment [Automa shaun message] The UA RBC) system which ge nerated this result tra nsmitted reference range : <=2. The reference range was not used to interpr et this result as jackeline l/abnormal. [facility] AND [id number] 21:59:00 Test Item Value Reference Range Interpretation Comments UA Bacteria (test code = None Seen (04/09/19 UA Bacteria) 3:59 PM) [facility]ownannCARDIAC [id number] 21:59:00 Test Item Value Reference Range Interpretation Comments Total CK (test code = Total CK) 93 12-191 [facility] [id number] 21:59:00 Test Item Value Reference Range Interpretation Comments Troponin-I (test code 0.03 See_Comment [Auto mated message] The = Troponin-I) system which g enerated this result transmit shaun reference range : <=0.40. The reference r lily was not used to interpr et this result as jackeline l/abnormal. [facility]ownannCHEM [id number] 21:59:00 Test Item Value Reference Range Interpretation Comments Glucose Lvl (test code = Glucose Lvl) 142 70-99 [place] 626920-01-11 21:59:00 Test Item Value Reference Range Interpretation Comments BUN (test code = BUN) 13 7-22 [place] 626920-01-11 21:59:00 Test Item Value Reference Range Interpretation Comments Creatinine Lvl (test code = Creatinine 0.79 0.50-1.40 Lvl) [place] 626920-01-11 21:59:00 Test Item Value Reference Range Interpretation Comments Sodium Lvl (test code = Sodium Lvl) 131 135-145 [place] 23043-01-11 21:59:00 Test Item Value Reference Range Interpretation Comments Potassium Lvl (test code = Potassium 3.4 3.5-5.1 Lvl) [place] 626920-01-11 21:59:00 Test Item Value Reference Range Interpretation Comments Chloride Lvl (test code = Chloride Lvl) 98 95-109 [place] 626920-01-11 21:59:00 Test Item Value Reference Range Interpretation Comments CO2 (test code = CO2) 33 24-32 [place] 626920-01-11 21:59:00 Test Item Value Reference Range Interpretation Comments Calcium Lvl (test code = Calcium Lvl) 9.3 8.5-10.5 [place] 626920-01-11 21:59:00 Test Item Value Reference Range Interpretation Comments Total Protein (test code = Total 8.1 6.4-8.4 Protein) [place] 626920-01-11 21:59:00 Test Item Value Reference Range Interpretation Comments Albumin Lvl (test code = Albumin Lvl) 3.6 3.5-5.0 [place] 626920-01-11 21:59:00 Test Item Value Reference Range Interpretation Comments ALT (test code = ALT) 18 See_Comment [Auto mated message] The system which ge nerated this result transmit shaun reference range : <=65. The reference range was not used to interpr et this result as jackeline l/abnormal. [place] 626920-01-11 21:59:00 Test Item Value Reference Range Interpretation Comments AST (test code = AST) 21 See_Comment [Auto mated message] The system which ge nerated this result transmit shaun reference range : <=37. The reference range was not used to interpr et this result as jackeline l/abnormal. [place] 626920-01-11 21:59:00 Test Item Value Reference Range Interpretation Comments Alk Phos (test code = Alk Phos) 95 39-136 [place] 626920-01-11 21:59:00 Test Item Value Reference Range Interpretation Comments Bili Total (test code = Bili Total) 0.5 0.2-1.3 [place] 626920-01-11 21:59:00 Test Item Value Reference Range Interpretation Comments AGAP (test code = AGAP) 3.4 10.0-20.0 [place] 626920-01-11 21:59:00 Test Item Value Reference Range Interpretation Comments B/C Ratio (test code = B/C Ratio) 16 1 6-25 [place] 230[address]-01-11 21:59:00 Test Item Value Reference Range Interpretation Comments Globulin (test code = Globulin) 4.5 2.7-4.2 [place] 626920-01-11 21:59:00 Test Item Value Reference Range Interpretation Comments A/G Ratio (test code = A/G Ratio) 0.8 1 0.7-1.6 [place] 230[address]-01-11 21:59:00 Test Item Value Reference Range Interpretation Comments eGFR (test code = eGFR) 78 [facility]2020-01-11 21:59:00 Test Item Value Reference Range Interpretation Comments Lipase Lvl (test code = Lipase Lvl) 112 73-393 [place] 626920-01-11 21:59:00 Test Item Value Reference Range Interpretation Comments Magnesium Lvl (test code = Magnesium 1.6 1.8-2.4 Lvl) [place] 107530-01-11 21:59:00 Test Item Value Reference Range Interpretation Comments WBC (test code = WBC) 7.6 3.7-10.4 [place] 107530-01-11 21:59:00 Test Item Value Reference Range Interpretation Comments RBC (test code = RBC) 4.45 4.20-5.40 [place] 107530-01-11 21:59:00 Test Item Value Reference Range Interpretation Comments Hgb (test code = Hgb) 13.6 12.0-16.0 [facility] [id number] 21:59:00 Test Item Value Reference Range Interpretation Comments Hct (test code = Hct) 40.3 36.0-48.0 [facility] PasoMpdzfzjMACUBDGNOF0864-77-16 21:59:00 Test Item Value Reference Range Interpretation Comments MCV (test code = MCV) 90.6 80.0-98.0 [facility] PasoDqgcvwjHOELOVILSY2139-23-05 21:59:00 Test Item Value Reference Range Interpretation Comments MCH (test code = MCH) 30.5 pg 27.0-31.0 [facility] PasoKxapdecLJLOIYPCBQ9181-30-98 21:59:00 Test Item Value Reference Range Interpretation Comments MCHC (test code = MCHC) 33.7 32.0-36.0 [facility] PasoUlkjnjfTGUNLWZATQ6907-88-98 21:59:00 Test Item Value Reference Range Interpretation Comments RDW (test code = RDW) 12.9 11.5-14.5 [facility] PasoSthrwhlSRNXBYXZZX7520-93-54 21:59:00 Test Item Value Reference Range Interpretation Comments Platelet (test code = Platelet) 192 133-450 [facility] PasoRehkxegXGNSLVJJYN6125-57-85 21:59:00 Test Item Value Reference Range Interpretation Comments MPV (test code = MPV) 9.6 7.4-10.4 [facility] PasoVgpkdwwBAVCTCIJYM1483-91-20 21:59:00 Test Item Value Reference Range Interpretation Comments PT (test code = PT) 13.7 s 12.0-14.7 [facility] PasoMbooxspVAXBWFUWPM9766-19-69 21:59:00 Test Item Value Reference Range Interpretation Comments INR (test code = INR) 1.05 1 0.85-1.17 [facility] PasoRdtnxmaDJTLADMUVR7791-84-17 21:59:00 Test Item Value Reference Range Interpretation Comments Segs (test code = Segs) 67.6 45.0-75.0 [place] 107530-01-11 21:59:00 Test Item Value Reference Range Interpretation Comments Lymphocytes (test code = Lymphocytes) 23.6 20.0-40.0 [facility] PasoJqvcpdjDRYXFNMVGJ0550-49-86 21:59:00 Test Item Value Reference Range Interpretation Comments Monocytes (test code = Monocytes) 5.8 2.0-12.0 [facility] PasoBjsbhllQKWWTEJDPK6367-23-02 21:59:00 Test Item Value Reference Range Interpretation Comments Eosinophils (test code = 2.5 See_Comment [A utomated message] The Eosinophils) system which ge nerated this result tra nsmitted reference range : <=4.0. The reference r lily was not used to int erpret this result as normal/abnormal . [facility] PasoUnyyikyGHJFPXHTQT4090-25-64 21:59:00 Test Item Value Reference Range Interpretation Comments Basophils (test code = 0.5 See_Comment [Aut omated message] The Basophils) system which ge nerated this result tra nsmitted reference range : <=1.0. The reference r lily was not used to int erpret this result as normal/abnormal . [facility] PasoFiajzzwPZANENJVAS4230-30-33 21:59:00 Test Item Value Reference Range Interpretation Comments Neutrophils # (test code = Neutrophils 5.1 1.5-8.1 #) [facility] PasoYagzeszJMISZSUFSI6309-61-52 21:59:00 Test Item Value Reference Range Interpretation Comments Lymphocytes # (test code = Lymphocytes 1.8 1.0-5.5 #) [facility] PasoJtgyafzXYRNOVPXMT8257-89-01 21:59:00 Test Item Value Reference Range Interpretation Comments Monocytes # (test code 0.4 See_Comment [Aut omated message] The = Monocytes #) system which generated this result tra nsmitted reference range : <=0.8. The reference r lily was not used to int erpret this result as normal/abnormal . [facility] PasoRhqfhheCQLLETPQEZ6175-90-76 21:59:00 Test Item Value Reference Range Interpretation Comments Eosinophils # (test code 0.2 See_Comment [A utomated message] The = Eosinophils #) system whic h generated this result tra nsmitted reference range : <=0.5. The reference r lily was not used to int erpret this result as normal/abnormal . [facility] AND [id number] 21:59:00 Test Item Value Reference Range Interpretation Comments UA Color (test code = Yellow *NA*(04/09/19 UA Color) 3:59 PM) [facility] AND [id number] 21:59:00 Test Item Value Reference Range Interpretation Comments UA Turbidity (test code = Clear (04/09/19 3:59 UA Turbidity) PM) [facility] AND [id number] 21:59:00 Test Item Value Reference Range Interpretation Comments UA Spec Grav (test code = UA Spec 1.010 1 Grav) [facility] AND [id number] 21:59:00 Test Item Value Reference Range Interpretation Comments UA pH (test code = UA pH) 6.0 1 5.0-8.0 [facility] AND [id number] 21:59:00 Test Item Value Reference Range Interpretation Comments UA Protein (test code Negative (04/09/19 3:59 = UA Protein) PM) [facility] AND [id number] 21:59:00 Test Item Value Reference Range Interpretation Comments UA Glucose (test code Negative (04/09/19 3:59 = UA Glucose) PM) [facility] AND [id number] 21:59:00 Test Item Value Reference Range Interpretation Comments UA Ketones (test code Negative *NA*(04/09/19 = UA Ketones) 3:59 PM) [facility] AND [id number] 21:59:00 Test Item Value Reference Range Interpretation Comments UA Bili (test code = Negative *NA*(04/09/19 UA Bili) 3:59 PM) [facility] AND [id number] 21:59:00 Test Item Value Reference Range Interpretation Comments UA Blood (test code = Trace *ABN*(04/09/19 UA Blood) 3:59 PM) [facility] AND [id number] 21:59:00 Test Item Value Reference Range Interpretation Comments UA Urobilinogen (test code = UA 0.2 0.1-1.0 Urobilinogen) [facility] AND [id number] 21:59:00 Test Item Value Reference Range Interpretation Comments UA Nitrite (test code Negative (04/09/19 3:59 = UA Nitrite) PM) [facility] AND [id number] 21:59:00 Test Item Value Reference Range Interpretation Comments UA Leuk Est (test Negative (04/09/19 3:59 code = UA Leuk Est) PM) [facility] AND [id number] 21:59:00 Test Item Value Reference Range Interpretation Comments UA Sq Epi (test code = UA Sq Occasional /LPF Epi) [facility] AND [id number] 21:59:00 Test Item Value Reference Range Interpretation Comments UA WBC (test code = UA None Seen (04/09/19 3:59 WBC) PM) [facility] [id number] 21:59:00 Test Item Value Reference Range Interpretation Comments UA RBC (test code = 3-5 /HPF See_Comment [Automa shaun message] The UA RBC) system which ge nerated this result tra nsmitted reference range : <=2. The reference range was not used to interpr et this result as jackeline l/abnormal. [facility] [id number] 21:59:00 Test Item Value Reference Range Interpretation Comments UA Bacteria (test code = None Seen (04/09/19 UA Bacteria) 3:59 PM) [facility] [id number] 21:59:00 Test Item Value Reference Range Interpretation Comments Total CK (test code = Total CK) 93 12-191 [facility] [id number] 21:59:00 Test Item Value Reference Range Interpretation Comments Troponin-I (test code 0.03 See_Comment [Auto mated message] The = Troponin-I) system which g enerated this result transmit shaun reference range : <=0.40. The reference r lily was not used to interpr et this result as jackeline l/abnormal. [facility] [employer] [id number] 21:59:00 Test Item Value Reference Range Interpretation Comments Glucose Lvl (test code = Glucose Lvl) 142 70-99 [facility] [employer] [id number] 21:59:00 Test Item Value Reference Range Interpretation Comments BUN (test code = BUN) 13 7-22 [facility] [id number] 21:59:00 Test Item Value Reference Range Interpretation Comments Creatinine Lvl (test code = Creatinine 0.79 0.50-1.40 Lvl) [facility] [id number] 21:59:00 Test Item Value Reference Range Interpretation Comments Sodium Lvl (test code = Sodium Lvl) 131 135-145 [facility] [id number] 21:59:00 Test Item Value Reference Range Interpretation Comments Potassium Lvl (test code = Potassium 3.4 3.5-5.1 Lvl) [facility] [employer] [id number] 21:59:00 Test Item Value Reference Range Interpretation Comments Chloride Lvl (test code = Chloride Lvl) 98 95-109 [facility] [id number] 21:59:00 Test Item Value Reference Range Interpretation Comments CO2 (test code = CO2) 33 24-32 [facility] [id number] 21:59:00 Test Item Value Reference Range Interpretation Comments Calcium Lvl (test code = Calcium Lvl) 9.3 8.5-10.5 [facility] [employer] [id number] 21:59:00 Test Item Value Reference Range Interpretation Comments Total Protein (test code = Total 8.1 6.4-8.4 Protein) [facility] [id number] 21:59:00 Test Item Value Reference Range Interpretation Comments Albumin Lvl (test code = Albumin Lvl) 3.6 3.5-5.0 [facility] [id number] 21:59:00 Test Item Value Reference Range Interpretation Comments ALT (test code = ALT) 18 See_Comment [Auto mated message] The system which ge nerated this result transmit shaun reference range : <=65. The reference range was not used to interpr et this result as jackeline l/abnormal. [facility] [employer] [id number] 21:59:00 Test Item Value Reference Range Interpretation Comments AST (test code = AST) 21 See_Comment [Auto mated message] The system which ge nerated this result transmit shaun reference range : <=37. The reference range was not used to interpr et this result as jackelnie l/abnormal. [facility] [employer] [id number] 21:59:00 Test Item Value Reference Range Interpretation Comments Alk Phos (test code = Alk Phos) 95 39-136 [facility] [id number] 21:59:00 Test Item Value Reference Range Interpretation Comments Bili Total (test code = Bili Total) 0.5 0.2-1.3 [facility] [employer] [id number] 21:59:00 Test Item Value Reference Range Interpretation Comments AGAP (test code = AGAP) 3.4 10.0-20.0 [facility] [employer]it [id number] 21:59:00 Test Item Value Reference Range Interpretation Comments B/C Ratio (test code = B/C Ratio) 16 1 6-25 [place] 626920-01-11 21:59:00 Test Item Value Reference Range Interpretation Comments Globulin (test code = Globulin) 4.5 2.7-4.2 [place] 626920-01-11 21:59:00 Test Item Value Reference Range Interpretation Comments A/G Ratio (test code = A/G Ratio) 0.8 1 0.7-1.6 [place] [address]-01-11 21:59:00 Test Item Value Reference Range Interpretation Comments eGFR (test code = eGFR) 78 [place] 626920-01-11 21:59:00 Test Item Value Reference Range Interpretation Comments Lipase Lvl (test code = Lipase Lvl) 112 73-393 [place] 626920-01-11 21:59:00 Test Item Value Reference Range Interpretation Comments Magnesium Lvl (test code = Magnesium 1.6 1.8-2.4 Lvl) [id number] 21:59:00 Test Item Value Reference Range Interpretation Comments WBC (test code = WBC) 7.6 3.7-10.4 [place] 107530-01-11 21:59:00 Test Item Value Reference Range Interpretation Comments RBC (test code = RBC) 4.45 4.20-5.40 [place] 107530-01-11 21:59:00 Test Item Value Reference Range Interpretation Comments Hgb (test code = Hgb) 13.6 12.0-16.0 [place] 107530-01-11 21:59:00 Test Item Value Reference Range Interpretation Comments Hct (test code = Hct) 40.3 36.0-48.0 [place] 107530-01-11 21:59:00 Test Item Value Reference Range Interpretation Comments MCV (test code = MCV) 90.6 80.0-98.0 [place] 107530-01-11 21:59:00 Test Item Value Reference Range Interpretation Comments MCH (test code = MCH) 30.5 pg 27.0-31.0 [place] 107530-01-11 21:59:00 Test Item Value Reference Range Interpretation Comments MCHC (test code = MCHC) 33.7 32.0-36.0 [place] 107530-01-11 21:59:00 Test Item Value Reference Range Interpretation Comments RDW (test code = RDW) 12.9 11.5-14.5 [facility] [id number] 21:59:00 Test Item Value Reference Range Interpretation Comments Platelet (test code = Platelet) 192 133-450 [facility] [id number] 21:59:00 Test Item Value Reference Range Interpretation Comments MPV (test code = MPV) 9.6 7.4-10.4 [place] 107530-01-11 21:59:00 Test Item Value Reference Range Interpretation Comments PT (test code = PT) 13.7 s 12.0-14.7 [facility] PasoYnaeunpZCHZHDPUNC9438-12-64 21:59:00 Test Item Value Reference Range Interpretation Comments INR (test code = INR) 1.05 1 0.85-1.17 [facility] [id number] 21:59:00 Test Item Value Reference Range Interpretation Comments Segs (test code = Segs) 67.6 45.0-75.0 [facility] PasoPsbmfwlFJGKNIKOZY0906-54-64 21:59:00 Test Item Value Reference Range Interpretation Comments Lymphocytes (test code = Lymphocytes) 23.6 20.0-40.0 [facility] [id number] 21:59:00 Test Item Value Reference Range Interpretation Comments Monocytes (test code = Monocytes) 5.8 2.0-12.0 [facility] [id number] 21:59:00 Test Item Value Reference Range Interpretation Comments Eosinophils (test code = 2.5 See_Comment [A utomated message] The Eosinophils) system which ge nerated this result tra nsmitted reference range : <=4.0. The reference r lily was not used to int erpret this result as normal/abnormal . [place] 107530-01-11 21:59:00 Test Item Value Reference Range Interpretation Comments Basophils (test code = 0.5 See_Comment [Aut omated message] The Basophils) system which ge nerated this result tra nsmitted reference range : <=1.0. The reference r lily was not used to int erpret this result as normal/abnormal . [facility] PasoAelibfrSMYLZHZEWT8956-59-21 21:59:00 Test Item Value Reference Range Interpretation Comments Neutrophils # (test code = Neutrophils 5.1 1.5-8.1 #) [facility] PasoDnmaebeOTXXNWUGFY1823-55-36 21:59:00 Test Item Value Reference Range Interpretation Comments Lymphocytes # (test code = Lymphocytes 1.8 1.0-5.5 #) [facility] PasoHuvgcqkFENWIXGRWC6381-08-11 21:59:00 Test Item Value Reference Range Interpretation Comments Monocytes # (test code 0.4 See_Comment [Aut omated message] The = Monocytes #) system which generated this result tra nsmitted reference range : <=0.8. The reference r lily was not used to int erpret this result as normal/abnormal . [facility] PasoThhwexiXLVHVVSZSR2344-07-97 21:59:00 Test Item Value Reference Range Interpretation Comments Eosinophils # (test code 0.2 See_Comment [A utomated message] The = Eosinophils #) system whic h generated this result tra nsmitted reference range : <=0.5. The reference r lily was not used to int erpret this result as normal/abnormal . [facility] AND [id number] 21:59:00 Test Item Value Reference Range Interpretation Comments UA Color (test code = Yellow *NA*(04/09/19 UA Color) 3:59 PM) [facility] AND [id number] 21:59:00 Test Item Value Reference Range Interpretation Comments UA Turbidity (test code = Clear (04/09/19 3:59 UA Turbidity) PM) [facility] AND [id number] 21:59:00 Test Item Value Reference Range Interpretation Comments UA Spec Grav (test code = UA Spec 1.010 1 Grav) [facility] AND [id number] 21:59:00 Test Item Value Reference Range Interpretation Comments UA pH (test code = UA pH) 6.0 1 5.0-8.0 [facility] AND [id number] 21:59:00 Test Item Value Reference Range Interpretation Comments UA Protein (test code Negative (04/09/19 3:59 = UA Protein) PM) [facility] AND [id number] 21:59:00 Test Item Value Reference Range Interpretation Comments UA Glucose (test code Negative (04/09/19 3:59 = UA Glucose) PM) [facility] [id number] 21:59:00 Test Item Value Reference Range Interpretation Comments UA Ketones (test code Negative *NA*(04/09/19 = UA Ketones) 3:59 PM) [facility] [id number] 21:59:00 Test Item Value Reference Range Interpretation Comments UA Bili (test code = Negative *NA*(04/09/19 UA Bili) 3:59 PM) [facility] [id number] 21:59:00 Test Item Value Reference Range Interpretation Comments UA Blood (test code = Trace *ABN*(04/09/19 UA Blood) 3:59 PM) [facility] [id number] 21:59:00 Test Item Value Reference Range Interpretation Comments UA Urobilinogen (test code = UA 0.2 0.1-1.0 Urobilinogen) [facility] [id number] 21:59:00 Test Item Value Reference Range Interpretation Comments UA Nitrite (test code Negative (04/09/19 3:59 = UA Nitrite) PM) [facility] [id number] 21:59:00 Test Item Value Reference Range Interpretation Comments UA Leuk Est (test Negative (04/09/19 3:59 code = UA Leuk Est) PM) [facility] [id number] 21:59:00 Test Item Value Reference Range Interpretation Comments UA Sq Epi (test code = UA Sq Occasional /LPF Epi) [facility] [id number] 21:59:00 Test Item Value Reference Range Interpretation Comments UA WBC (test code = UA None Seen (04/09/19 3:59 WBC) PM) [facility] [id number] 21:59:00 Test Item Value Reference Range Interpretation Comments UA RBC (test code = 3-5 /HPF See_Comment [Automa shaun message] The UA RBC) system which ge nerated this result tra nsmitted reference range : <=2. The reference range was not used to interpr et this result as jackeline l/abnormal. [facility] [id number] 21:59:00 Test Item Value Reference Range Interpretation Comments UA Bacteria (test code = None Seen (04/09/19 UA Bacteria) 3:59 PM) [facility] [id number] 21:59:00 Test Item Value Reference Range Interpretation Comments Total CK (test code = Total CK) 93 12-191 [facility] [id number] 21:59:00 Test Item Value Reference Range Interpretation Comments Troponin-I (test code 0.03 See_Comment [Auto mated message] The = Troponin-I) system which g enerated this result transmit shaun reference range : <=0.40. The reference r lily was not used to interpr et this result as jackeline l/abnormal. [facility] [employer]2020-01-11 21:59:00 Test Item Value Reference Range Interpretation Comments Total CK (test code = Total CK) 93 12-191 [facility]2020-01-11 21:59:00 Test Item Value Reference Range Interpretation Comments Troponin-I (test code 0.03 See_Comment [Auto mated message] The = Troponin-I) system which g enerated this result transmit shaun reference range : <=0.40. The reference r lily was not used to interpr et this result as jackeline l/abnormal. [facility] [employer]2020-01-11 21:59:00 Test Item Value Reference Range Interpretation Comments Glucose Lvl (test code = Glucose Lvl) 142 70-99 [facility] [employer]2020-01-11 21:59:00 Test Item Value Reference Range Interpretation Comments BUN (test code = BUN) 13 7-22 [id number] 21:59:00 Test Item Value Reference Range Interpretation Comments Creatinine Lvl (test code = Creatinine 0.79 0.50-1.40 Lvl) [facility] [employer]2020-01-11 21:59:00 Test Item Value Reference Range Interpretation Comments Sodium Lvl (test code = Sodium Lvl) 131 135-145 [facility] [employer]2020-01-11 21:59:00 Test Item Value Reference Range Interpretation Comments Potassium Lvl (test code = Potassium 3.4 3.5-5.1 Lvl) [facility] [employer]2020-01-11 21:59:00 Test Item Value Reference Range Interpretation Comments Chloride Lvl (test code = Chloride Lvl) 98 95-109 [facility] [employer]2020-01-11 21:59:00 Test Item Value Reference Range Interpretation Comments Glucose Lvl (test code = Glucose Lvl) 142 70-99 [place] 626920-01-11 21:59:00 Test Item Value Reference Range Interpretation Comments CO2 (test code = CO2) 33 24-32 [place] 626920-01-11 21:59:00 Test Item Value Reference Range Interpretation Comments Calcium Lvl (test code = Calcium Lvl) 9.3 8.5-10.5 [place] 626920-01-11 21:59:00 Test Item Value Reference Range Interpretation Comments Total Protein (test code = Total 8.1 6.4-8.4 Protein) [place] 626920-01-11 21:59:00 Test Item Value Reference Range Interpretation Comments Albumin Lvl (test code = Albumin Lvl) 3.6 3.5-5.0 [place] 626920-01-11 21:59:00 Test Item Value Reference Range Interpretation Comments ALT (test code = ALT) 18 See_Comment [Auto mated message] The system which ge nerated this result transmit shaun reference range : <=65. The reference range was not used to interpr et this result as jackeline l/abnormal. [place] 626920-01-11 21:59:00 Test Item Value Reference Range Interpretation Comments AST (test code = AST) 21 See_Comment [Auto mated message] The system which ge nerated this result transmit shaun reference range : <=37. The reference range was not used to interpr et this result as jackeline l/abnormal. [place] 626920-01-11 21:59:00 Test Item Value Reference Range Interpretation Comments Alk Phos (test code = Alk Phos) 95 39-136 [place] 626920-01-11 21:59:00 Test Item Value Reference Range Interpretation Comments Bili Total (test code = Bili Total) 0.5 0.2-1.3 [place] 626920-01-11 21:59:00 Test Item Value Reference Range Interpretation Comments AGAP (test code = AGAP) 3.4 10.0-20.0 [place] 626920-01-11 21:59:00 Test Item Value Reference Range Interpretation Comments B/C Ratio (test code = B/C Ratio) 16 1 6-25 [place] [address]-01-11 21:59:00 Test Item Value Reference Range Interpretation Comments BUN (test code = BUN) 13 7-22 [place] 626920-01-11 21:59:00 Test Item Value Reference Range Interpretation Comments Globulin (test code = Globulin) 4.5 2.7-4.2 [place] 626920-01-11 21:59:00 Test Item Value Reference Range Interpretation Comments A/G Ratio (test code = A/G Ratio) 0.8 1 0.7-1.6 [place] [address]-01-11 21:59:00 Test Item Value Reference Range Interpretation Comments eGFR (test code = eGFR) 78 [place] 626920-01-11 21:59:00 Test Item Value Reference Range Interpretation Comments Lipase Lvl (test code = Lipase Lvl) 112 73-393 [place] 626920-01-11 21:59:00 Test Item Value Reference Range Interpretation Comments Magnesium Lvl (test code = Magnesium 1.6 1.8-2.4 Lvl) [place] 107530-01-11 21:59:00 Test Item Value Reference Range Interpretation Comments WBC (test code = WBC) 7.6 3.7-10.4 [place] 107530-01-11 21:59:00 Test Item Value Reference Range Interpretation Comments RBC (test code = RBC) 4.45 4.20-5.40 [place] 107530-01-11 21:59:00 Test Item Value Reference Range Interpretation Comments Hgb (test code = Hgb) 13.6 12.0-16.0 [place] [address]-01-11 21:59:00 Test Item Value Reference Range Interpretation Comments Hct (test code = Hct) 40.3 36.0-48.0 [place] [address]-01-11 21:59:00 Test Item Value Reference Range Interpretation Comments MCV (test code = MCV) 90.6 80.0-98.0 [place] [address]-01-11 21:59:00 Test Item Value Reference Range Interpretation Comments Creatinine Lvl (test code = Creatinine 0.79 0.50-1.40 Lvl) [place] 107530-01-11 21:59:00 Test Item Value Reference Range Interpretation Comments MCH (test code = MCH) 30.5 pg 27.0-31.0 [facility]BddseipYTWUFNSUVL8671-82-44 21:59:00 Test Item Value Reference Range Interpretation Comments MCHC (test code = MCHC) 33.7 32.0-36.0 [facility] CampusCfgfpowTPQWAIJTME0255-94-89 21:59:00 Test Item Value Reference Range Interpretation Comments RDW (test code = RDW) 12.9 11.5-14.5 [facility]QtovtzoIQQXKGFTRO9224-73-12 21:59:00 Test Item Value Reference Range Interpretation Comments Platelet (test code = Platelet) 192 133-450 [facility]awRhckxkyVHLOEPOXON7218-64-73 21:59:00 Test Item Value Reference Range Interpretation Comments MPV (test code = MPV) 9.6 7.4-10.4 [facility]awPuhyattQNSSIDJSTS1643-07-50 21:59:00 Test Item Value Reference Range Interpretation Comments PT (test code = PT) 13.7 s 12.0-14.7 [facility]awOwrsoxkURTNBIWBJJ0413-61-01 21:59:00 Test Item Value Reference Range Interpretation Comments INR (test code = INR) 1.05 1 0.85-1.17 [facility]awXhzxpscHGPHKCZXZN3087-25-59 21:59:00 Test Item Value Reference Range Interpretation Comments Segs (test code = Segs) 67.6 45.0-75.0 [facility] CampusIvpiptlJMKMXKQFFB7005-47-29 21:59:00 Test Item Value Reference Range Interpretation Comments Lymphocytes (test code = Lymphocytes) 23.6 20.0-40.0 [facility] CampusRlumkinVPLSMYFCGK4775-00-42 21:59:00 Test Item Value Reference Range Interpretation Comments Monocytes (test code = Monocytes) 5.8 2.0-12.0 [facility] [id number] 21:59:00 Test Item Value Reference Range Interpretation Comments Sodium Lvl (test code = Sodium Lvl) 131 135-145 [facility]awVfxvinnQEQLPTSTIP1586-62-90 21:59:00 Test Item Value Reference Range Interpretation Comments Eosinophils (test code = 2.5 See_Comment [A utomated message] The Eosinophils) system which ge nerated this result tra nsmitted reference range : <=4.0. The reference r lily was not used to int erpret this result as normal/abnormal . [facility] PasoNwftcoaJFERXZDAHN6913-59-41 21:59:00 Test Item Value Reference Range Interpretation Comments Basophils (test code = 0.5 See_Comment [Aut omated message] The Basophils) system which ge nerated this result tra nsmitted reference range : <=1.0. The reference r lily was not used to int erpret this result as normal/abnormal . [facility] PasoKskdwgeCRBQPXXONE1964-63-41 21:59:00 Test Item Value Reference Range Interpretation Comments Neutrophils # (test code = Neutrophils 5.1 1.5-8.1 #) [facility] PasoQdcxvwdWNLVBZCLJC0151-24-67 21:59:00 Test Item Value Reference Range Interpretation Comments Lymphocytes # (test code = Lymphocytes 1.8 1.0-5.5 #) [facility] PasoTzhstidFKACLOWIEG2679-97-67 21:59:00 Test Item Value Reference Range Interpretation Comments Monocytes # (test code 0.4 See_Comment [Aut omated message] The = Monocytes #) system which generated this result tra nsmitted reference range : <=0.8. The reference r lily was not used to int erpret this result as normal/abnormal . [facility] PasoWkobttyULGOEJTWKO4856-27-89 21:59:00 Test Item Value Reference Range Interpretation Comments Eosinophils # (test code 0.2 See_Comment [A utomated message] The = Eosinophils #) system whic h generated this result tra nsmitted reference range : <=0.5. The reference r lily was not used to int erpret this result as normal/abnormal . [facility] AND [id number] 21:59:00 Test Item Value Reference Range Interpretation Comments UA Color (test code = Yellow *NA*(04/09/19 UA Color) 3:59 PM) [facility] AND [id number] 21:59:00 Test Item Value Reference Range Interpretation Comments UA Turbidity (test code = Clear (04/09/19 3:59 UA Turbidity) PM) [facility] AND [id number] 21:59:00 Test Item Value Reference Range Interpretation Comments UA Spec Grav (test code = UA Spec 1.010 1 Grav) [facility] AND [id number] 21:59:00 Test Item Value Reference Range Interpretation Comments UA pH (test code = UA pH) 6.0 1 5.0-8.0 [facility] [id number] 21:59:00 Test Item Value Reference Range Interpretation Comments Potassium Lvl (test code = Potassium 3.4 3.5-5.1 Lvl) [facility] [id number] 21:59:00 Test Item Value Reference Range Interpretation Comments UA Protein (test code Negative (04/09/19 3:59 = UA Protein) PM) [facility] [id number] 21:59:00 Test Item Value Reference Range Interpretation Comments UA Glucose (test code Negative (04/09/19 3:59 = UA Glucose) PM) [facility] [id number] 21:59:00 Test Item Value Reference Range Interpretation Comments UA Ketones (test code Negative *NA*(04/09/19 = UA Ketones) 3:59 PM) [facility] [id number] 21:59:00 Test Item Value Reference Range Interpretation Comments UA Bili (test code = Negative *NA*(04/09/19 UA Bili) 3:59 PM) [facility] [id number] 21:59:00 Test Item Value Reference Range Interpretation Comments UA Blood (test code = Trace *ABN*(04/09/19 UA Blood) 3:59 PM) [facility] [id number] 21:59:00 Test Item Value Reference Range Interpretation Comments UA Urobilinogen (test code = UA 0.2 0.1-1.0 Urobilinogen) [facility] [id number] 21:59:00 Test Item Value Reference Range Interpretation Comments UA Nitrite (test code Negative (04/09/19 3:59 = UA Nitrite) PM) [facility] [id number] 21:59:00 Test Item Value Reference Range Interpretation Comments UA Leuk Est (test Negative (04/09/19 3:59 code = UA Leuk Est) PM) [facility] [id number] 21:59:00 Test Item Value Reference Range Interpretation Comments UA Sq Epi (test code = UA Sq Occasional /LPF Epi) [facility] [id number] 21:59:00 Test Item Value Reference Range Interpretation Comments UA WBC (test code = UA None Seen (04/09/19 3:59 WBC) PM) [facility] fav[employer]or.it [id number] 21:59:00 Test Item Value Reference Range Interpretation Comments Chloride Lvl (test code = Chloride Lvl) 98 95-109 [facility] AND [id number] 21:59:00 Test Item Value Reference Range Interpretation Comments UA RBC (test code = 3-5 /HPF See_Comment [Automa shaun message] The UA RBC) system which ge nerated this result tra nsmitted reference range : <=2. The reference range was not used to interpr et this result as jackeline l/abnormal. [facility] AND [id number] 21:59:00 Test Item Value Reference Range Interpretation Comments UA Bacteria (test code = None Seen (04/09/19 UA Bacteria) 3:59 PM) [facility] [id number] 21:59:00 Test Item Value Reference Range Interpretation Comments CO2 (test code = CO2) 33 24-32 [facility] [id number] 21:59:00 Test Item Value Reference Range Interpretation Comments Calcium Lvl (test code = Calcium Lvl) 9.3 8.5-10.5 [facility] fav[employer]or.it [id number] 21:59:00 Test Item Value Reference Range Interpretation Comments Total Protein (test code = Total 8.1 6.4-8.4 Protein) [facility] [id number] 21:59:00 Test Item Value Reference Range Interpretation Comments Albumin Lvl (test code = Albumin Lvl) 3.6 3.5-5.0 [facility] [id number] 21:59:00 Test Item Value Reference Range Interpretation Comments ALT (test code = ALT) 18 See_Comment [Auto mated message] The system which ge nerated this result transmit shaun reference range : <=65. The reference range was not used to interpr et this result as jackeline l/abnormal. [facility] fav.or.it [id number] 21:59:00 Test Item Value Reference Range Interpretation Comments AST (test code = AST) 21 See_Comment [Auto mated message] The system which ge nerated this result transmit shaun reference range : <=37. The reference range was not used to interpr et this result as jackeline l/abnormal. [facility]2020-01-11 21:59:00 Test Item Value Reference Range Interpretation Comments Alk Phos (test code = Alk Phos) 95 39-136 [facility]2020-01-11 21:59:00 Test Item Value Reference Range Interpretation Comments Bili Total (test code = Bili Total) 0.5 0.2-1.3 [facility]2020-01-11 21:59:00 Test Item Value Reference Range Interpretation Comments AGAP (test code = AGAP) 3.4 10.0-20.0 [facility]2020-01-11 21:59:00 Test Item Value Reference Range Interpretation Comments B/C Ratio (test code = B/C Ratio) 16 1 6-25 [facility]2020-01-11 21:59:00 Test Item Value Reference Range Interpretation Comments Globulin (test code = Globulin) 4.5 2.7-4.2 [place] 626920-01-11 21:59:00 Test Item Value Reference Range Interpretation Comments A/G Ratio (test code = A/G Ratio) 0.8 1 0.7-1.6 [place] 626920-01-11 21:59:00 Test Item Value Reference Range Interpretation Comments eGFR (test code = eGFR) 78 [facility]2020-01-11 21:59:00 Test Item Value Reference Range Interpretation Comments Lipase Lvl (test code = Lipase Lvl) 112 73-393 [facility]2020-01-11 21:59:00 Test Item Value Reference Range Interpretation Comments Magnesium Lvl (test code = Magnesium 1.6 1.8-2.4 Lvl) [id number] 21:59:00 Test Item Value Reference Range Interpretation Comments WBC (test code = WBC) 7.6 3.7-10.4 [place] 107530-01-11 21:59:00 Test Item Value Reference Range Interpretation Comments RBC (test code = RBC) 4.45 4.20-5.40 [facility] [id number] 21:59:00 Test Item Value Reference Range Interpretation Comments Hgb (test code = Hgb) 13.6 12.0-16.0 [place] 107530-01-11 21:59:00 Test Item Value Reference Range Interpretation Comments Hct (test code = Hct) 40.3 36.0-48.0 [id number] 21:59:00 Test Item Value Reference Range Interpretation Comments MCV (test code = MCV) 90.6 80.0-98.0 [facility] PasoVgfpiwkCTXTKTGZSK8115-06-19 21:59:00 Test Item Value Reference Range Interpretation Comments MCH (test code = MCH) 30.5 pg 27.0-31.0 [facility] Camp[id number] 21:59:00 Test Item Value Reference Range Interpretation Comments MCHC (test code = MCHC) 33.7 32.0-36.0 [facility] CampusNairfcaZIUYZCKBDG1725-67-90 21:59:00 Test Item Value Reference Range Interpretation Comments RDW (test code = RDW) 12.9 11.5-14.5 [facility] CampusDataGravity [id number] 21:59:00 Test Item Value Reference Range Interpretation Comments Total CK (test code = Total CK) 93 12-191 [facility] CampusCreaWor [id number] 21:59:00 Test Item Value Reference Range Interpretation Comments Troponin-I (test code 0.03 See_Comment [Auto mated message] The = Troponin-I) system which g enerated this result transmit shaun reference range : <=0.40. The reference r lily was not used to interpr et this result as jackeline l/abnormal. [facility] [id number] 21:59:00 Test Item Value Reference Range Interpretation Comments Glucose Lvl (test code = Glucose Lvl) 142 70-99 [facility] [id number] 21:59:00 Test Item Value Reference Range Interpretation Comments BUN (test code = BUN) 13 7-22 [facility] [id number] 21:59:00 Test Item Value Reference Range Interpretation Comments Creatinine Lvl (test code = Creatinine 0.79 0.50-1.40 Lvl) [facility] [id number] 21:59:00 Test Item Value Reference Range Interpretation Comments Platelet (test code = Platelet) 192 133-450 [facility] [id number] 21:59:00 Test Item Value Reference Range Interpretation Comments Sodium Lvl (test code = Sodium Lvl) 131 135-145 [facility]2020-01-11 21:59:00 Test Item Value Reference Range Interpretation Comments Potassium Lvl (test code = Potassium 3.4 3.5-5.1 Lvl) [facility]2020-01-11 21:59:00 Test Item Value Reference Range Interpretation Comments Chloride Lvl (test code = Chloride Lvl) 98 95-109 [facility]ownTabSquareJEFFRE[place] [id number] 21:59:00 Test Item Value Reference Range Interpretation Comments CO2 (test code = CO2) 33 24-32 [place] 626920-01-11 21:59:00 Test Item Value Reference Range Interpretation Comments Calcium Lvl (test code = Calcium Lvl) 9.3 8.5-10.5 [place] 626920-01-11 21:59:00 Test Item Value Reference Range Interpretation Comments Total Protein (test code = Total 8.1 6.4-8.4 Protein) [facility]2020-01-11 21:59:00 Test Item Value Reference Range Interpretation Comments Albumin Lvl (test code = Albumin Lvl) 3.6 3.5-5.0 [facility]2020-01-11 21:59:00 Test Item Value Reference Range Interpretation Comments ALT (test code = ALT) 18 See_Comment [Auto mated message] The system which ge nerated this result transmit shaun reference range : <=65. The reference range was not used to interpr et this result as jackeline l/abnormal. [place] 626920-01-11 21:59:00 Test Item Value Reference Range Interpretation Comments AST (test code = AST) 21 See_Comment [Auto mated message] The system which ge nerated this result transmit shaun reference range : <=37. The reference range was not used to interpr et this result as jackeline l/abnormal. [facility]2020-01-11 21:59:00 Test Item Value Reference Range Interpretation Comments Alk Phos (test code = Alk Phos) 95 39-136 [facility] PasoXmjnkjmDVGWFCQGAQ7243-34-95 21:59:00 Test Item Value Reference Range Interpretation Comments MPV (test code = MPV) 9.6 7.4-10.4 [place] 626920-01-11 21:59:00 Test Item Value Reference Range Interpretation Comments Bili Total (test code = Bili Total) 0.5 0.2-1.3 [place] 626920-01-11 21:59:00 Test Item Value Reference Range Interpretation Comments AGAP (test code = AGAP) 3.4 10.0-20.0 [place] 626920-01-11 21:59:00 Test Item Value Reference Range Interpretation Comments B/C Ratio (test code = B/C Ratio) 16 1 6-25 [place] 626920-01-11 21:59:00 Test Item Value Reference Range Interpretation Comments Globulin (test code = Globulin) 4.5 2.7-4.2 [place] 626920-01-11 21:59:00 Test Item Value Reference Range Interpretation Comments A/G Ratio (test code = A/G Ratio) 0.8 1 0.7-1.6 [place] [address]-01-11 21:59:00 Test Item Value Reference Range Interpretation Comments eGFR (test code = eGFR) 78 [facility]2020-01-11 21:59:00 Test Item Value Reference Range Interpretation Comments Lipase Lvl (test code = Lipase Lvl) 112 73-393 [facility]2020-01-11 21:59:00 Test Item Value Reference Range Interpretation Comments Magnesium Lvl (test code = Magnesium 1.6 1.8-2.4 Lvl) [facility] [id number] 21:59:00 Test Item Value Reference Range Interpretation Comments WBC (test code = WBC) 7.6 3.7-10.4 [place] 107530-01-11 21:59:00 Test Item Value Reference Range Interpretation Comments RBC (test code = RBC) 4.45 4.20-5.40 [place] 107530-01-11 21:59:00 Test Item Value Reference Range Interpretation Comments PT (test code = PT) 13.7 s 12.0-14.7 [facility] PasoMhjsonqGGNJQGVKIE5112-57-48 21:59:00 Test Item Value Reference Range Interpretation Comments Hgb (test code = Hgb) 13.6 12.0-16.0 [place] 107530-01-11 21:59:00 Test Item Value Reference Range Interpretation Comments Hct (test code = Hct) 40.3 36.0-48.0 [facility] PasoCviyqzrELPYZVHDFR6729-41-64 21:59:00 Test Item Value Reference Range Interpretation Comments MCV (test code = MCV) 90.6 80.0-98.0 [facility] [id number] 21:59:00 Test Item Value Reference Range Interpretation Comments MCH (test code = MCH) 30.5 pg 27.0-31.0 [facility] PasoNswabnhJQFJTHRHGS8431-08-75 21:59:00 Test Item Value Reference Range Interpretation Comments MCHC (test code = MCHC) 33.7 32.0-36.0 [facility] PasoLufeqiaOOSGSAFSKV7132-14-93 21:59:00 Test Item Value Reference Range Interpretation Comments RDW (test code = RDW) 12.9 11.5-14.5 [facility] [id number] 21:59:00 Test Item Value Reference Range Interpretation Comments Platelet (test code = Platelet) 192 133-450 [facility] PasoWffddckIHJBLMQEDR8924-50-89 21:59:00 Test Item Value Reference Range Interpretation Comments MPV (test code = MPV) 9.6 7.4-10.4 [facility] PasoRskozizKHNOAZFJNG6831-95-60 21:59:00 Test Item Value Reference Range Interpretation Comments PT (test code = PT) 13.7 s 12.0-14.7 [facility] PasoPlnwcluCTRGCMXEAY8336-85-32 21:59:00 Test Item Value Reference Range Interpretation Comments INR (test code = INR) 1.05 1 0.85-1.17 [facility] PasoEyjvepcQXGXQBOWNB8417-55-27 21:59:00 Test Item Value Reference Range Interpretation Comments INR (test code = INR) 1.05 1 0.85-1.17 [place] 107530-01-11 21:59:00 Test Item Value Reference Range Interpretation Comments Segs (test code = Segs) 67.6 45.0-75.0 [place] 107530-01-11 21:59:00 Test Item Value Reference Range Interpretation Comments Lymphocytes (test code = Lymphocytes) 23.6 20.0-40.0 [facility] PasoUohyluaFOWRFJFIZI0309-11-14 21:59:00 Test Item Value Reference Range Interpretation Comments Monocytes (test code = Monocytes) 5.8 2.0-12.0 [facility] PasoHrzncblRNMYPLNDCZ3196-61-51 21:59:00 Test Item Value Reference Range Interpretation Comments Eosinophils (test code = 2.5 See_Comment [A utomated message] The Eosinophils) system which ge nerated this result tra nsmitted reference range : <=4.0. The reference r lily was not used to int erpret this result as normal/abnormal . [facility] PasoGlcliogRVFDEJVPZT7655-36-25 21:59:00 Test Item Value Reference Range Interpretation Comments Basophils (test code = 0.5 See_Comment [Aut omated message] The Basophils) system which ge nerated this result tra nsmitted reference range : <=1.0. The reference r lily was not used to int erpret this result as normal/abnormal . [facility] PasoDjnzhpjPDRLKDZYMC7945-12-47 21:59:00 Test Item Value Reference Range Interpretation Comments Neutrophils # (test code = Neutrophils 5.1 1.5-8.1 #) [facility] PasoEhqxzwyVFLJYQAYQR5979-98-61 21:59:00 Test Item Value Reference Range Interpretation Comments Lymphocytes # (test code = Lymphocytes 1.8 1.0-5.5 #) [facility] PasoAddxrmpFUSBGKYPSK9322-94-36 21:59:00 Test Item Value Reference Range Interpretation Comments Monocytes # (test code 0.4 See_Comment [Aut omated message] The = Monocytes #) system which generated this result tra nsmitted reference range : <=0.8. The reference r lily was not used to int erpret this result as normal/abnormal . [facility] PasoByprnqxFEIYRKVGFF4680-38-57 21:59:00 Test Item Value Reference Range Interpretation Comments Eosinophils # (test code 0.2 See_Comment [A utomated message] The = Eosinophils #) system whic h generated this result tra nsmitted reference range : <=0.5. The reference r lily was not used to int erpret this result as normal/abnormal . [facility]2020-01-11 21:59:00 Test Item Value Reference Range Interpretation Comments UA Color (test code = Yellow *NA*(04/09/19 UA Color) 3:59 PM) [facility] PasoIldhxywGWVELOMZUL3993-34-39 21:59:00 Test Item Value Reference Range Interpretation Comments Segs (test code = Segs) 67.6 45.0-75.0 [facility] AND [id number] 21:59:00 Test Item Value Reference Range Interpretation Comments UA Turbidity (test code = Clear (04/09/19 3:59 UA Turbidity) PM) [facility] AND [id number] 21:59:00 Test Item Value Reference Range Interpretation Comments UA Spec Grav (test code = UA Spec 1.010 1 Grav) [facility] AND [id number] 21:59:00 Test Item Value Reference Range Interpretation Comments UA pH (test code = UA pH) 6.0 1 5.0-8.0 [facility] AND [id number] 21:59:00 Test Item Value Reference Range Interpretation Comments UA Protein (test code Negative (04/09/19 3:59 = UA Protein) PM) [facility] AND [id number] 21:59:00 Test Item Value Reference Range Interpretation Comments UA Glucose (test code Negative (04/09/19 3:59 = UA Glucose) PM) [facility] AND [id number] 21:59:00 Test Item Value Reference Range Interpretation Comments UA Ketones (test code Negative *NA*(04/09/19 = UA Ketones) 3:59 PM) [facility] AND [id number] 21:59:00 Test Item Value Reference Range Interpretation Comments UA Bili (test code = Negative *NA*(04/09/19 UA Bili) 3:59 PM) [facility] AND [id number] 21:59:00 Test Item Value Reference Range Interpretation Comments UA Blood (test code = Trace *ABN*(04/09/19 UA Blood) 3:59 PM) [facility] AND [id number] 21:59:00 Test Item Value Reference Range Interpretation Comments UA Urobilinogen (test code = UA 0.2 0.1-1.0 Urobilinogen) [facility] AND [id number] 21:59:00 Test Item Value Reference Range Interpretation Comments UA Nitrite (test code Negative (04/09/19 3:59 = UA Nitrite) PM) [facility] [id number] 21:59:00 Test Item Value Reference Range Interpretation Comments Lymphocytes (test code = Lymphocytes) 23.6 20.0-40.0 [facility] AND [id number] 21:59:00 Test Item Value Reference Range Interpretation Comments UA Leuk Est (test Negative (04/09/19 3:59 code = UA Leuk Est) PM) [facility] AND [id number] 21:59:00 Test Item Value Reference Range Interpretation Comments UA Sq Epi (test code = UA Sq Occasional /LPF Epi) [facility] AND [id number] 21:59:00 Test Item Value Reference Range Interpretation Comments UA WBC (test code = UA None Seen (04/09/19 3:59 WBC) PM) [facility] AND [id number] 21:59:00 Test Item Value Reference Range Interpretation Comments UA RBC (test code = 3-5 /HPF See_Comment [Automa shaun message] The UA RBC) system which ge nerated this result tra nsmitted reference range : <=2. The reference range was not used to interpr et this result as jackeline l/abnormal. [facility] AND [id number] 21:59:00 Test Item Value Reference Range Interpretation Comments UA Bacteria (test code = None Seen (04/09/19 UA Bacteria) 3:59 PM) [facility] PasoBdgardmWAUMFEBCYP6133-50-01 21:59:00 Test Item Value Reference Range Interpretation Comments Monocytes (test code = Monocytes) 5.8 2.0-12.0 [facility] PasoXsthvdpZGSHFHOUNA8311-72-07 21:59:00 Test Item Value Reference Range Interpretation Comments Eosinophils (test code = 2.5 See_Comment [A utomated message] The Eosinophils) system which ge nerated this result tra nsmitted reference range : <=4.0. The reference r lily was not used to int erpret this result as normal/abnormal . [facility] Pa[id number] 21:59:00 Test Item Value Reference Range Interpretation Comments Basophils (test code = 0.5 See_Comment [Aut omated message] The Basophils) system which ge nerated this result tra nsmitted reference range : <=1.0. The reference r lily was not used to int erpret this result as normal/abnormal . [facility] PasoEwtibciWNZAINAUMW8801-85-44 21:59:00 Test Item Value Reference Range Interpretation Comments Neutrophils # (test code = Neutrophils 5.1 1.5-8.1 #) [facility]GjrnnqeDYJGBRATTG9132-27-57 21:59:00 Test Item Value Reference Range Interpretation Comments Lymphocytes # (test code = Lymphocytes 1.8 1.0-5.5 #) [facility] PasoBtvqougIUQKWIGRSG9735-02-79 21:59:00 Test Item Value Reference Range Interpretation Comments Monocytes # (test code 0.4 See_Comment [Aut omated message] The = Monocytes #) system which generated this result tra nsmitted reference range : <=0.8. The reference r lily was not used to int erpret this result as normal/abnormal . [facility] PasoUidrzjbHEPDZHMGDE7153-68-24 21:59:00 Test Item Value Reference Range Interpretation Comments Eosinophils # (test code 0.2 See_Comment [A utomated message] The = Eosinophils #) system whic h generated this result tra nsmitted reference range : <=0.5. The reference r lily was not used to int erpret this result as normal/abnormal . [facility] AND [id number] 21:59:00 Test Item Value Reference Range Interpretation Comments UA Color (test code = Yellow *NA*(04/09/19 UA Color) 3:59 PM) [facility] AND [id number] 21:59:00 Test Item Value Reference Range Interpretation Comments UA Turbidity (test code = Clear (04/09/19 3:59 UA Turbidity) PM) [facility] AND [id number] 21:59:00 Test Item Value Reference Range Interpretation Comments UA Spec Grav (test code = UA Spec 1.010 1 Grav) [facility] AND [id number] 21:59:00 Test Item Value Reference Range Interpretation Comments UA pH (test code = UA pH) 6.0 1 5.0-8.0 [facility] AND [id number] 21:59:00 Test Item Value Reference Range Interpretation Comments UA Protein (test code Negative (04/09/19 3:59 = UA Protein) PM) [facility] AND [id number] 21:59:00 Test Item Value Reference Range Interpretation Comments UA Glucose (test code Negative (04/09/19 3:59 = UA Glucose) PM) [facility] AND [id number] 21:59:00 Test Item Value Reference Range Interpretation Comments UA Ketones (test code Negative *NA*(04/09/19 = UA Ketones) 3:59 PM) [facility] [id number] 21:59:00 Test Item Value Reference Range Interpretation Comments UA Bili (test code = Negative *NA*(04/09/19 UA Bili) 3:59 PM) [facility] [id number] 21:59:00 Test Item Value Reference Range Interpretation Comments UA Blood (test code = Trace *ABN*(04/09/19 UA Blood) 3:59 PM) [facility] [id number] 21:59:00 Test Item Value Reference Range Interpretation Comments UA Urobilinogen (test code = UA 0.2 0.1-1.0 Urobilinogen) [facility] [id number] 21:59:00 Test Item Value Reference Range Interpretation Comments UA Nitrite (test code Negative (04/09/19 3:59 = UA Nitrite) PM) [facility] [id number] 21:59:00 Test Item Value Reference Range Interpretation Comments UA Leuk Est (test Negative (04/09/19 3:59 code = UA Leuk Est) PM) [facility] [id number] 21:59:00 Test Item Value Reference Range Interpretation Comments UA Sq Epi (test code = UA Sq Occasional /LPF Epi) [facility] [id number] 21:59:00 Test Item Value Reference Range Interpretation Comments UA WBC (test code = UA None Seen (04/09/19 3:59 WBC) PM) [facility] [id number] 21:59:00 Test Item Value Reference Range Interpretation Comments UA RBC (test code = 3-5 /HPF See_Comment [Automa shaun message] The UA RBC) system which ge nerated this result tra nsmitted reference range : <=2. The reference range was not used to interpr et this result as jackeline l/abnormal. [facility] [id number] 21:59:00 Test Item Value Reference Range Interpretation Comments UA Bacteria (test code = None Seen (04/09/19 UA Bacteria) 3:59 PM) [facility] [id number] 21:59:00 Test Item Value Reference Range Interpretation Comments Total CK (test code = Total CK) 93 12-191 [facility] [id number] 21:59:00 Test Item Value Reference Range Interpretation Comments Troponin-I (test code 0.03 See_Comment [Auto mated message] The = Troponin-I) system which g enerated this result transmit shaun reference range : <=0.40. The reference r lily was not used to interpr et this result as jackeline l/abnormal. [facility] fav.or.it [id number] 21:59:00 Test Item Value Reference Range Interpretation Comments Glucose Lvl (test code = Glucose Lvl) 142 70-99 [facility] [id number] 21:59:00 Test Item Value Reference Range Interpretation Comments BUN (test code = BUN) 13 7-22 [facility] [id number] 21:59:00 Test Item Value Reference Range Interpretation Comments Creatinine Lvl (test code = Creatinine 0.79 0.50-1.40 Lvl) [facility] [id number] 21:59:00 Test Item Value Reference Range Interpretation Comments Sodium Lvl (test code = Sodium Lvl) 131 135-145 [facility] [id number] 21:59:00 Test Item Value Reference Range Interpretation Comments Potassium Lvl (test code = Potassium 3.4 3.5-5.1 Lvl) [facility] [id number] 21:59:00 Test Item Value Reference Range Interpretation Comments Chloride Lvl (test code = Chloride Lvl) 98 95-109 [facility] [id number] 21:59:00 Test Item Value Reference Range Interpretation Comments CO2 (test code = CO2) 33 24-32 [facility] [id number] 21:59:00 Test Item Value Reference Range Interpretation Comments Calcium Lvl (test code = Calcium Lvl) 9.3 8.5-10.5 [facility] [id number] 21:59:00 Test Item Value Reference Range Interpretation Comments Total Protein (test code = Total 8.1 6.4-8.4 Protein) [facility] [id number] 21:59:00 Test Item Value Reference Range Interpretation Comments Albumin Lvl (test code = Albumin Lvl) 3.6 3.5-5.0 [facility] fav.[employer].it [id number] 21:59:00 Test Item Value Reference Range Interpretation Comments ALT (test code = ALT) 18 See_Comment [Auto mated message] The system which ge nerated this result transmit shaun reference range : <=65. The reference range was not used to interpr et this result as jackeline l/abnormal. [employer] [id number] 21:59:00 Test Item Value Reference Range Interpretation Comments AST (test code = AST) 21 See_Comment [Auto mated message] The system which ge nerated this result transmit hsaun reference range : <=37. The reference range was not used to interpr et this result as jackeline l/abnormal. [employer]2020-01-11 21:59:00 Test Item Value Reference Range Interpretation Comments Alk Phos (test code = Alk Phos) 95 39-136 [facility] [employer] [id number] 21:59:00 Test Item Value Reference Range Interpretation Comments Bili Total (test code = Bili Total) 0.5 0.2-1.3 [facility] [employer] [id number] 21:59:00 Test Item Value Reference Range Interpretation Comments AGAP (test code = AGAP) 3.4 10.0-20.0 [facility] [employer] [id number] 21:59:00 Test Item Value Reference Range Interpretation Comments B/C Ratio (test code = B/C Ratio) 16 1 6-25 [facility] [employer] [id number] 21:59:00 Test Item Value Reference Range Interpretation Comments Globulin (test code = Globulin) 4.5 2.7-4.2 [facility] [employer]2020-01-11 21:59:00 Test Item Value Reference Range Interpretation Comments A/G Ratio (test code = A/G Ratio) 0.8 1 0.7-1.6 [facility] [employer] [id number] 21:59:00 Test Item Value Reference Range Interpretation Comments eGFR (test code = eGFR) 78 [facility] [employer] [id number] 21:59:00 Test Item Value Reference Range Interpretation Comments Lipase Lvl (test code = Lipase Lvl) 112 73-393 [facility] [employer] [id number] 21:59:00 Test Item Value Reference Range Interpretation Comments Magnesium Lvl (test code = Magnesium 1.6 1.8-2.4 Lvl) [facility] PasoSdwxlquKYUTDEWTJJ9886-43-94 21:59:00 Test Item Value Reference Range Interpretation Comments WBC (test code = WBC) 7.6 3.7-10.4 [facility] [id number] 21:59:00 Test Item Value Reference Range Interpretation Comments RBC (test code = RBC) 4.45 4.20-5.40 [facility] Pa[id number] 21:59:00 Test Item Value Reference Range Interpretation Comments Hgb (test code = Hgb) 13.6 12.0-16.0 [facility] PasoZvwhudhIAOXEJPAQF4243-85-07 21:59:00 Test Item Value Reference Range Interpretation Comments Hct (test code = Hct) 40.3 36.0-48.0 [facility] PasoOgrguhdUOLBFMDGWQ0879-17-38 21:59:00 Test Item Value Reference Range Interpretation Comments MCV (test code = MCV) 90.6 80.0-98.0 [facility] PasoTzudzpcSPBVBHUZMN5990-33-00 21:59:00 Test Item Value Reference Range Interpretation Comments MCH (test code = MCH) 30.5 pg 27.0-31.0 [facility] PasoMquicenVVKYCPOLQZ5096-78-47 21:59:00 Test Item Value Reference Range Interpretation Comments MCHC (test code = MCHC) 33.7 32.0-36.0 [facility] [id number] 21:59:00 Test Item Value Reference Range Interpretation Comments RDW (test code = RDW) 12.9 11.5-14.5 [facility] PasoVylqhkmIPJMDEOFXI9629-49-96 21:59:00 Test Item Value Reference Range Interpretation Comments Platelet (test code = Platelet) 192 133-450 [facility] Pa[id number] 21:59:00 Test Item Value Reference Range Interpretation Comments MPV (test code = MPV) 9.6 7.4-10.4 [facility] PasoSwdlnuxEFZWYJEVSL1141-58-54 21:59:00 Test Item Value Reference Range Interpretation Comments PT (test code = PT) 13.7 s 12.0-14.7 [facility] PasoXrmfkjmGKVBHFKXCA7527-47-59 21:59:00 Test Item Value Reference Range Interpretation Comments INR (test code = INR) 1.05 1 0.85-1.17 [place] 107530-01-11 21:59:00 Test Item Value Reference Range Interpretation Comments Segs (test code = Segs) 67.6 45.0-75.0 [facility] PasoJhjnsfkRIERMIBUMO0810-73-05 21:59:00 Test Item Value Reference Range Interpretation Comments Lymphocytes (test code = Lymphocytes) 23.6 20.0-40.0 [facility] PasoTlyvcxpKZAXWDHGMH6452-78-49 21:59:00 Test Item Value Reference Range Interpretation Comments Monocytes (test code = Monocytes) 5.8 2.0-12.0 [facility] [id number] 21:59:00 Test Item Value Reference Range Interpretation Comments Eosinophils (test code = 2.5 See_Comment [A utomated message] The Eosinophils) system which ge nerated this result tra nsmitted reference range : <=4.0. The reference r lily was not used to int erpret this result as normal/abnormal . [facility] [id number] 21:59:00 Test Item Value Reference Range Interpretation Comments Basophils (test code = 0.5 See_Comment [Aut omated message] The Basophils) system which ge nerated this result tra nsmitted reference range : <=1.0. The reference r lily was not used to int erpret this result as normal/abnormal . [facility] [id number] 21:59:00 Test Item Value Reference Range Interpretation Comments Neutrophils # (test code = Neutrophils 5.1 1.5-8.1 #) [facility] Pa[id number] 21:59:00 Test Item Value Reference Range Interpretation Comments Lymphocytes # (test code = Lymphocytes 1.8 1.0-5.5 #) [place] 107530-01-11 21:59:00 Test Item Value Reference Range Interpretation Comments Monocytes # (test code 0.4 See_Comment [Aut omated message] The = Monocytes #) system which generated this result tra nsmitted reference range : <=0.8. The reference r lily was not used to int erpret this result as normal/abnormal . [facility] PasoDugrkkjDCVIMCFBMO6422-24-85 21:59:00 Test Item Value Reference Range Interpretation Comments Eosinophils # (test code 0.2 See_Comment [A utomated message] The = Eosinophils #) system whic h generated this result tra nsmitted reference range : <=0.5. The reference r lily was not used to int erpret this result as normal/abnormal . [facility] AND [id number] 21:59:00 Test Item Value Reference Range Interpretation Comments UA Color (test code = Yellow *NA*(04/09/19 UA Color) 3:59 PM) [facility] AND [id number] 21:59:00 Test Item Value Reference Range Interpretation Comments UA Turbidity (test code = Clear (04/09/19 3:59 UA Turbidity) PM) [facility] [id number] 21:59:00 Test Item Value Reference Range Interpretation Comments UA Spec Grav (test code = UA Spec 1.010 1 Grav) [facility] AND [id number] 21:59:00 Test Item Value Reference Range Interpretation Comments UA pH (test code = UA pH) 6.0 1 5.0-8.0 [facility] AND [id number] 21:59:00 Test Item Value Reference Range Interpretation Comments UA Protein (test code Negative (04/09/19 3:59 = UA Protein) PM) [facility] AND [id number] 21:59:00 Test Item Value Reference Range Interpretation Comments UA Glucose (test code Negative (04/09/19 3:59 = UA Glucose) PM) [facility] AND [id number] 21:59:00 Test Item Value Reference Range Interpretation Comments UA Ketones (test code Negative *NA*(04/09/19 = UA Ketones) 3:59 PM) [facility] AND [id number] 21:59:00 Test Item Value Reference Range Interpretation Comments UA Bili (test code = Negative *NA*(04/09/19 UA Bili) 3:59 PM) [facility] AND [id number] 21:59:00 Test Item Value Reference Range Interpretation Comments UA Blood (test code = Trace *ABN*(04/09/19 UA Blood) 3:59 PM) [facility] AND [id number] 21:59:00 Test Item Value Reference Range Interpretation Comments UA Urobilinogen (test code = UA 0.2 0.1-1.0 Urobilinogen) [facility]ownann[facility] AND [id number] 21:59:00 Test Item Value Reference Range Interpretation Comments UA Nitrite (test code Negative (04/09/19 3:59 = UA Nitrite) PM) [facility] AND [id number] 21:59:00 Test Item Value Reference Range Interpretation Comments UA Leuk Est (test Negative (04/09/19 3:59 code = UA Leuk Est) PM) [facility] AND [id number] 21:59:00 Test Item Value Reference Range Interpretation Comments UA Sq Epi (test code = UA Sq Occasional /LPF Epi) [facility] AND [id number] 21:59:00 Test Item Value Reference Range Interpretation Comments UA WBC (test code = UA None Seen (04/09/19 3:59 WBC) PM) [facility] AND [id number] 21:59:00 Test Item Value Reference Range Interpretation Comments UA RBC (test code = 3-5 /HPF See_Comment [Automa shaun message] The UA RBC) system which ge nerated this result tra nsmitted reference range : <=2. The reference range was not used to interpr et this result as jackeline l/abnormal. [facility] AND [id number] 21:59:00 Test Item Value Reference Range Interpretation Comments UA Bacteria (test code = None Seen (04/09/19 UA Bacteria) 3:59 PM) [facility]ownannCARDIAC [id number] 21:59:00 Test Item Value Reference Range Interpretation Comments Total CK (test code = Total CK) 93 12-191 [facility]ownannCARDIAC [id number] 21:59:00 Test Item Value Reference Range Interpretation Comments Troponin-I (test code 0.03 See_Comment [Auto mated message] The = Troponin-I) system which g enerated this result transmit shaun reference range : <=0.40. The reference r lily was not used to interpr et this result as jackeline l/abnormal. [facility] [employer] [id number] 21:59:00 Test Item Value Reference Range Interpretation Comments Glucose Lvl (test code = Glucose Lvl) 142 70-99 [facility]ownannCHEM [id number] 21:59:00 Test Item Value Reference Range Interpretation Comments BUN (test code = BUN) 13 7-22 [place] 626920-01-11 21:59:00 Test Item Value Reference Range Interpretation Comments Creatinine Lvl (test code = Creatinine 0.79 0.50-1.40 Lvl) [place] 626920-01-11 21:59:00 Test Item Value Reference Range Interpretation Comments Sodium Lvl (test code = Sodium Lvl) 131 135-145 [place] 626920-01-11 21:59:00 Test Item Value Reference Range Interpretation Comments Potassium Lvl (test code = Potassium 3.4 3.5-5.1 Lvl) [place] 626920-01-11 21:59:00 Test Item Value Reference Range Interpretation Comments Chloride Lvl (test code = Chloride Lvl) 98 95-109 [place] 626920-01-11 21:59:00 Test Item Value Reference Range Interpretation Comments CO2 (test code = CO2) 33 24-32 [place] 626920-01-11 21:59:00 Test Item Value Reference Range Interpretation Comments Calcium Lvl (test code = Calcium Lvl) 9.3 8.5-10.5 [place] 626920-01-11 21:59:00 Test Item Value Reference Range Interpretation Comments Total Protein (test code = Total 8.1 6.4-8.4 Protein) [place] 626920-01-11 21:59:00 Test Item Value Reference Range Interpretation Comments Albumin Lvl (test code = Albumin Lvl) 3.6 3.5-5.0 [place] 626920-01-11 21:59:00 Test Item Value Reference Range Interpretation Comments ALT (test code = ALT) 18 See_Comment [Auto mated message] The system which ge nerated this result transmit shaun reference range : <=65. The reference range was not used to interpr et this result as jackeline l/abnormal. [place] 626920-01-11 21:59:00 Test Item Value Reference Range Interpretation Comments AST (test code = AST) 21 See_Comment [Auto mated message] The system which ge nerated this result transmit shaun reference range : <=37. The reference range was not used to interpr et this result as jackeline l/abnormal. [place] 626920-01-11 21:59:00 Test Item Value Reference Range Interpretation Comments Alk Phos (test code = Alk Phos) 95 39-136 [place] 626920-01-11 21:59:00 Test Item Value Reference Range Interpretation Comments Bili Total (test code = Bili Total) 0.5 0.2-1.3 [place] 626920-01-11 21:59:00 Test Item Value Reference Range Interpretation Comments AGAP (test code = AGAP) 3.4 10.0-20.0 [place] 626920-01-11 21:59:00 Test Item Value Reference Range Interpretation Comments B/C Ratio (test code = B/C Ratio) 16 1 6-25 [place] 626920-01-11 21:59:00 Test Item Value Reference Range Interpretation Comments Globulin (test code = Globulin) 4.5 2.7-4.2 [facility]2020-01-11 21:59:00 Test Item Value Reference Range Interpretation Comments A/G Ratio (test code = A/G Ratio) 0.8 1 0.7-1.6 [place] 626920-01-11 21:59:00 Test Item Value Reference Range Interpretation Comments eGFR (test code = eGFR) 78 [facility]2020-01-11 21:59:00 Test Item Value Reference Range Interpretation Comments Lipase Lvl (test code = Lipase Lvl) 112 73-393 [facility]2020-01-11 21:59:00 Test Item Value Reference Range Interpretation Comments Magnesium Lvl (test code = Magnesium 1.6 1.8-2.4 Lvl) [place] 107530-01-11 21:59:00 Test Item Value Reference Range Interpretation Comments WBC (test code = WBC) 7.6 3.7-10.4 [place] 107530-01-11 21:59:00 Test Item Value Reference Range Interpretation Comments RBC (test code = RBC) 4.45 4.20-5.40 [place] 107530-01-11 21:59:00 Test Item Value Reference Range Interpretation Comments Hgb (test code = Hgb) 13.6 12.0-16.0 [place] 107530-01-11 21:59:00 Test Item Value Reference Range Interpretation Comments Hct (test code = Hct) 40.3 36.0-48.0 [facility] PasoDdfohouAKCDBWDGES9203-61-11 21:59:00 Test Item Value Reference Range Interpretation Comments MCV (test code = MCV) 90.6 80.0-98.0 [facility] PasoDjxskoaTLGLXYGPRN9361-69-81 21:59:00 Test Item Value Reference Range Interpretation Comments MCH (test code = MCH) 30.5 pg 27.0-31.0 [facility] PasoJlhukrcIHEKQGZSYQ8746-31-58 21:59:00 Test Item Value Reference Range Interpretation Comments MCHC (test code = MCHC) 33.7 32.0-36.0 [facility] PasoBvxosabICPWAVGBDZ3139-99-24 21:59:00 Test Item Value Reference Range Interpretation Comments RDW (test code = RDW) 12.9 11.5-14.5 [place] 107530-01-11 21:59:00 Test Item Value Reference Range Interpretation Comments Platelet (test code = Platelet) 192 133-450 [facility] PasoXecitivICEDBFTEZC5278-04-03 21:59:00 Test Item Value Reference Range Interpretation Comments MPV (test code = MPV) 9.6 7.4-10.4 [facility] PasoFpvvaulRQROSVOIXG5186-30-11 21:59:00 Test Item Value Reference Range Interpretation Comments PT (test code = PT) 13.7 s 12.0-14.7 [facility] PasoJvjibzwOMZABDCBHZ6775-82-76 21:59:00 Test Item Value Reference Range Interpretation Comments INR (test code = INR) 1.05 1 0.85-1.17 [facility] PasoKwdlapkSZQJPNSZUT6506-59-51 21:59:00 Test Item Value Reference Range Interpretation Comments Segs (test code = Segs) 67.6 45.0-75.0 [place] 107530-01-11 21:59:00 Test Item Value Reference Range Interpretation Comments Lymphocytes (test code = Lymphocytes) 23.6 20.0-40.0 [place] 107530-01-11 21:59:00 Test Item Value Reference Range Interpretation Comments Monocytes (test code = Monocytes) 5.8 2.0-12.0 [facility] PasoLcimkjsJBLCGLRRSZ0535-46-44 21:59:00 Test Item Value Reference Range Interpretation Comments Eosinophils (test code = 2.5 See_Comment [A utomated message] The Eosinophils) system which ge nerated this result tra nsmitted reference range : <=4.0. The reference r lily was not used to int erpret this result as normal/abnormal . [facility] PasoCctdpmkHBRVQCSMTR0192-26-84 21:59:00 Test Item Value Reference Range Interpretation Comments Basophils (test code = 0.5 See_Comment [Aut omated message] The Basophils) system which ge nerated this result tra nsmitted reference range : <=1.0. The reference r lily was not used to int erpret this result as normal/abnormal . [facility] PasoPbllirjMVOMXIRKSZ3598-46-23 21:59:00 Test Item Value Reference Range Interpretation Comments Neutrophils # (test code = Neutrophils 5.1 1.5-8.1 #) [facility] PasoUqdfulcZQDOWUNKNR2257-96-16 21:59:00 Test Item Value Reference Range Interpretation Comments Lymphocytes # (test code = Lymphocytes 1.8 1.0-5.5 #) [facility] PasoOflsmwkOIWFSUNVXG2771-05-05 21:59:00 Test Item Value Reference Range Interpretation Comments Monocytes # (test code 0.4 See_Comment [Aut omated message] The = Monocytes #) system which generated this result tra nsmitted reference range : <=0.8. The reference r lily was not used to int erpret this result as normal/abnormal . [facility] PasoDpoajfuBZMJGXCISM0056-59-07 21:59:00 Test Item Value Reference Range Interpretation Comments Eosinophils # (test code 0.2 See_Comment [A utomated message] The = Eosinophils #) system whic h generated this result tra nsmitted reference range : <=0.5. The reference r lily was not used to int erpret this result as normal/abnormal . [facility] AND [id number] 21:59:00 Test Item Value Reference Range Interpretation Comments UA Color (test code = Yellow *NA*(04/09/19 UA Color) 3:59 PM) [facility] AND [id number] 21:59:00 Test Item Value Reference Range Interpretation Comments UA Turbidity (test code = Clear (04/09/19 3:59 UA Turbidity) PM) [facility] AND [id number] 21:59:00 Test Item Value Reference Range Interpretation Comments UA Spec Grav (test code = UA Spec 1.010 1 Grav) [facility] AND [id number] 21:59:00 Test Item Value Reference Range Interpretation Comments UA pH (test code = UA pH) 6.0 1 5.0-8.0 [facility] AND [id number] 21:59:00 Test Item Value Reference Range Interpretation Comments UA Protein (test code Negative (04/09/19 3:59 = UA Protein) PM) [facility] [id number] 21:59:00 Test Item Value Reference Range Interpretation Comments UA Glucose (test code Negative (04/09/19 3:59 = UA Glucose) PM) [facility] AND [id number] 21:59:00 Test Item Value Reference Range Interpretation Comments UA Ketones (test code Negative *NA*(04/09/19 = UA Ketones) 3:59 PM) [facility] AND [id number] 21:59:00 Test Item Value Reference Range Interpretation Comments UA Bili (test code = Negative *NA*(04/09/19 UA Bili) 3:59 PM) [facility] AND [id number] 21:59:00 Test Item Value Reference Range Interpretation Comments UA Blood (test code = Trace *ABN*(04/09/19 UA Blood) 3:59 PM) [facility] AND [id number] 21:59:00 Test Item Value Reference Range Interpretation Comments UA Urobilinogen (test code = UA 0.2 0.1-1.0 Urobilinogen) [facility] AND [id number] 21:59:00 Test Item Value Reference Range Interpretation Comments UA Nitrite (test code Negative (04/09/19 3:59 = UA Nitrite) PM) [facility] AND [id number] 21:59:00 Test Item Value Reference Range Interpretation Comments UA Leuk Est (test Negative (04/09/19 3:59 code = UA Leuk Est) PM) [facility] AND [id number] 21:59:00 Test Item Value Reference Range Interpretation Comments UA Sq Epi (test code = UA Sq Occasional /LPF Epi) [facility] AND [id number] 21:59:00 Test Item Value Reference Range Interpretation Comments UA WBC (test code = UA None Seen (04/09/19 3:59 WBC) PM) [facility]ownadrianaR[facility] AND [id number] 21:59:00 Test Item Value Reference Range Interpretation Comments UA RBC (test code = 3-5 /HPF See_Comment [Automa shaun message] The UA RBC) system which ge nerated this result tra nsmitted reference range : <=2. The reference range was not used to interpr et this result as jackeline l/abnormal. [facility] HospitalTabSquareROB[facility] AND [id number] 21:59:00 Test Item Value Reference Range Interpretation Comments UA Bacteria (test code = None Seen (04/09/19 UA Bacteria) 3:59 PM) [facility] UptownTabSquareCARDIAC [id number] 21:59:00 Test Item Value Reference Range Interpretation Comments Total CK (test code = Total CK) 93 12-191 [facility] UptownTabSquareCARPark Energy ServicesAC [id number] 21:59:00 Test Item Value Reference Range Interpretation Comments Troponin-I (test code 0.03 See_Comment [Auto mated message] The = Troponin-I) system which g enerated this result transmit hsaun reference range : <=0.40. The reference r lily was not used to interpr et this result as jackeline l/abnormal. [facility] [id number] 21:59:00 Test Item Value Reference Range Interpretation Comments Glucose Lvl (test code = Glucose Lvl) 142 70-99 [facility] [employer] [id number] 21:59:00 Test Item Value Reference Range Interpretation Comments BUN (test code = BUN) 13 7-22 [facility] [employer] [id number] 21:59:00 Test Item Value Reference Range Interpretation Comments Creatinine Lvl (test code = Creatinine 0.79 0.50-1.40 Lvl) [facility] [employer] [id number] 21:59:00 Test Item Value Reference Range Interpretation Comments Sodium Lvl (test code = Sodium Lvl) 131 135-145 [facility] [employer] [id number] 21:59:00 Test Item Value Reference Range Interpretation Comments Potassium Lvl (test code = Potassium 3.4 3.5-5.1 Lvl) [facility] [employer] [id number] 21:59:00 Test Item Value Reference Range Interpretation Comments Chloride Lvl (test code = Chloride Lvl) 98 95-109 [facility] [employer]it [id number] 21:59:00 Test Item Value Reference Range Interpretation Comments CO2 (test code = CO2) 33 24-32 [facility] [id number] 21:59:00 Test Item Value Reference Range Interpretation Comments Calcium Lvl (test code = Calcium Lvl) 9.3 8.5-10.5 [facility]it [id number] 21:59:00 Test Item Value Reference Range Interpretation Comments Total Protein (test code = Total 8.1 6.4-8.4 Protein) [facility] [id number] 21:59:00 Test Item Value Reference Range Interpretation Comments Albumin Lvl (test code = Albumin Lvl) 3.6 3.5-5.0 [facility] [id number] 21:59:00 Test Item Value Reference Range Interpretation Comments ALT (test code = ALT) 18 See_Comment [Auto mated message] The system which ge nerated this result transmit shaun reference range : <=65. The reference range was not used to interpr et this result as jackeline l/abnormal. [facility] [id number] 21:59:00 Test Item Value Reference Range Interpretation Comments AST (test code = AST) 21 See_Comment [Auto mated message] The system which ge nerated this result transmit shaun reference range : <=37. The reference range was not used to interpr et this result as jackeline l/abnormal. [facility] [id number] 21:59:00 Test Item Value Reference Range Interpretation Comments Alk Phos (test code = Alk Phos) 95 39-136 [facility] [employer] [id number] 21:59:00 Test Item Value Reference Range Interpretation Comments Bili Total (test code = Bili Total) 0.5 0.2-1.3 [facility] [id number] 21:59:00 Test Item Value Reference Range Interpretation Comments AGAP (test code = AGAP) 3.4 10.0-20.0 [facility] [id number] 21:59:00 Test Item Value Reference Range Interpretation Comments B/C Ratio (test code = B/C Ratio) 16 1 6-25 [facility] [id number] 21:59:00 Test Item Value Reference Range Interpretation Comments Globulin (test code = Globulin) 4.5 2.7-4.2 [place] [id number] 21:59:00 Test Item Value Reference Range Interpretation Comments A/G Ratio (test code = A/G Ratio) 0.8 1 0.7-1.6 [place] 626920-01-11 21:59:00 Test Item Value Reference Range Interpretation Comments eGFR (test code = eGFR) 78 [facility]2020-01-11 21:59:00 Test Item Value Reference Range Interpretation Comments Lipase Lvl (test code = Lipase Lvl) 112 73-393 [facility]2020-01-11 21:59:00 Test Item Value Reference Range Interpretation Comments Magnesium Lvl (test code = Magnesium 1.6 1.8-2.4 Lvl) [place] 107530-01-11 21:59:00 Test Item Value Reference Range Interpretation Comments WBC (test code = WBC) 7.6 3.7-10.4 [id number] 21:59:00 Test Item Value Reference Range Interpretation Comments RBC (test code = RBC) 4.45 4.20-5.40 [place] 107530-01-11 21:59:00 Test Item Value Reference Range Interpretation Comments Hgb (test code = Hgb) 13.6 12.0-16.0 [place] 107530-01-11 21:59:00 Test Item Value Reference Range Interpretation Comments Hct (test code = Hct) 40.3 36.0-48.0 [place] 107530-01-11 21:59:00 Test Item Value Reference Range Interpretation Comments MCV (test code = MCV) 90.6 80.0-98.0 [place] 107530-01-11 21:59:00 Test Item Value Reference Range Interpretation Comments MCH (test code = MCH) 30.5 pg 27.0-31.0 [place] 107530-01-11 21:59:00 Test Item Value Reference Range Interpretation Comments MCHC (test code = MCHC) 33.7 32.0-36.0 [place] 107530-01-11 21:59:00 Test Item Value Reference Range Interpretation Comments RDW (test code = RDW) 12.9 11.5-14.5 [facility] [id number] 21:59:00 Test Item Value Reference Range Interpretation Comments Platelet (test code = Platelet) 192 133-450 [facility] [id number] 21:59:00 Test Item Value Reference Range Interpretation Comments MPV (test code = MPV) 9.6 7.4-10.4 [facility] Pa[id number] 21:59:00 Test Item Value Reference Range Interpretation Comments PT (test code = PT) 13.7 s 12.0-14.7 [facility] [id number] 21:59:00 Test Item Value Reference Range Interpretation Comments INR (test code = INR) 1.05 1 0.85-1.17 [place] 107530-01-11 21:59:00 Test Item Value Reference Range Interpretation Comments Segs (test code = Segs) 67.6 45.0-75.0 [facility] PasoDnlzvkaEFWYGDOAQZ0679-42-42 21:59:00 Test Item Value Reference Range Interpretation Comments Lymphocytes (test code = Lymphocytes) 23.6 20.0-40.0 [facility] PasoYcftrgeKKGBFQKPZB1687-58-41 21:59:00 Test Item Value Reference Range Interpretation Comments Monocytes (test code = Monocytes) 5.8 2.0-12.0 [facility] [id number] 21:59:00 Test Item Value Reference Range Interpretation Comments Eosinophils (test code = 2.5 See_Comment [A utomated message] The Eosinophils) system which ge nerated this result tra nsmitted reference range : <=4.0. The reference r lily was not used to int erpret this result as normal/abnormal . [facility] [id number] 21:59:00 Test Item Value Reference Range Interpretation Comments Basophils (test code = 0.5 See_Comment [Aut omated message] The Basophils) system which ge nerated this result tra nsmitted reference range : <=1.0. The reference r lily was not used to int erpret this result as normal/abnormal . [facility] PasoCreiyeoRGTWHPYNVC6317-06-75 21:59:00 Test Item Value Reference Range Interpretation Comments Neutrophils # (test code = Neutrophils 5.1 1.5-8.1 #) [place] 107530-01-11 21:59:00 Test Item Value Reference Range Interpretation Comments Lymphocytes # (test code = Lymphocytes 1.8 1.0-5.5 #) [facility] [id number] 21:59:00 Test Item Value Reference Range Interpretation Comments Monocytes # (test code 0.4 See_Comment [Aut omated message] The = Monocytes #) system which generated this result tra nsmitted reference range : <=0.8. The reference r lily was not used to int erpret this result as normal/abnormal . [facility] [id number] 21:59:00 Test Item Value Reference Range Interpretation Comments Eosinophils # (test code 0.2 See_Comment [A utomated message] The = Eosinophils #) system whic h generated this result tra nsmitted reference range : <=0.5. The reference r lily was not used to int erpret this result as normal/abnormal . [facility] AND [id number] 21:59:00 Test Item Value Reference Range Interpretation Comments UA Color (test code = Yellow *NA*(04/09/19 UA Color) 3:59 PM) [facility] AND [id number] 21:59:00 Test Item Value Reference Range Interpretation Comments UA Turbidity (test code = Clear (04/09/19 3:59 UA Turbidity) PM) [facility] AND [id number] 21:59:00 Test Item Value Reference Range Interpretation Comments UA Spec Grav (test code = UA Spec 1.010 1 Grav) [facility] AND [id number] 21:59:00 Test Item Value Reference Range Interpretation Comments UA pH (test code = UA pH) 6.0 1 5.0-8.0 [facility] AND [id number] 21:59:00 Test Item Value Reference Range Interpretation Comments UA Protein (test code Negative (04/09/19 3:59 = UA Protein) PM) [facility] AND [id number] 21:59:00 Test Item Value Reference Range Interpretation Comments UA Glucose (test code Negative (04/09/19 3:59 = UA Glucose) PM) [facility] AND [id number] 21:59:00 Test Item Value Reference Range Interpretation Comments UA Ketones (test code Negative *NA*(04/09/19 = UA Ketones) 3:59 PM) [facility] [id number] 21:59:00 Test Item Value Reference Range Interpretation Comments UA Bili (test code = Negative *NA*(04/09/19 UA Bili) 3:59 PM) [facility] [id number] 21:59:00 Test Item Value Reference Range Interpretation Comments UA Blood (test code = Trace *ABN*(04/09/19 UA Blood) 3:59 PM) [facility] [id number] 21:59:00 Test Item Value Reference Range Interpretation Comments UA Urobilinogen (test code = UA 0.2 0.1-1.0 Urobilinogen) [facility] [id number] 21:59:00 Test Item Value Reference Range Interpretation Comments UA Nitrite (test code Negative (04/09/19 3:59 = UA Nitrite) PM) [facility] [id number] 21:59:00 Test Item Value Reference Range Interpretation Comments UA Leuk Est (test Negative (04/09/19 3:59 code = UA Leuk Est) PM) [facility] [id number] 21:59:00 Test Item Value Reference Range Interpretation Comments UA Sq Epi (test code = UA Sq Occasional /LPF Epi) [facility] [id number] 21:59:00 Test Item Value Reference Range Interpretation Comments UA WBC (test code = UA None Seen (04/09/19 3:59 WBC) PM) [facility] [id number] 21:59:00 Test Item Value Reference Range Interpretation Comments UA RBC (test code = 3-5 /HPF See_Comment [Automa shaun message] The UA RBC) system which ge nerated this result tra nsmitted reference range : <=2. The reference range was not used to interpr et this result as jackeline l/abnormal. [facility] [id number] 21:59:00 Test Item Value Reference Range Interpretation Comments UA Bacteria (test code = None Seen (04/09/19 UA Bacteria) 3:59 PM) [facility] [id number] 21:59:00 Test Item Value Reference Range Interpretation Comments Total CK (test code = Total CK) 93 12-191 [facility] [id number] 21:59:00 Test Item Value Reference Range Interpretation Comments Troponin-I (test code 0.03 See_Comment [Auto mated message] The = Troponin-I) system which g enerated this result transmit shaun reference range : <=0.40. The reference r lily was not used to interpr et this result as jackeline l/abnormal. [facility] [id number] 21:59:00 Test Item Value Reference Range Interpretation Comments Glucose Lvl (test code = Glucose Lvl) 142 70-99 [facility] [id number] 21:59:00 Test Item Value Reference Range Interpretation Comments BUN (test code = BUN) 13 7-22 [facility] [id number] 21:59:00 Test Item Value Reference Range Interpretation Comments Creatinine Lvl (test code = Creatinine 0.79 0.50-1.40 Lvl) [facility] [id number] 21:59:00 Test Item Value Reference Range Interpretation Comments Sodium Lvl (test code = Sodium Lvl) 131 135-145 [facility] [id number] 21:59:00 Test Item Value Reference Range Interpretation Comments Potassium Lvl (test code = Potassium 3.4 3.5-5.1 Lvl) [facility] [id number] 21:59:00 Test Item Value Reference Range Interpretation Comments Chloride Lvl (test code = Chloride Lvl) 98 95-109 [facility] [id number] 21:59:00 Test Item Value Reference Range Interpretation Comments CO2 (test code = CO2) 33 24-32 [facility] [id number] 21:59:00 Test Item Value Reference Range Interpretation Comments Calcium Lvl (test code = Calcium Lvl) 9.3 8.5-10.5 [facility] [id number] 21:59:00 Test Item Value Reference Range Interpretation Comments Total Protein (test code = Total 8.1 6.4-8.4 Protein) [facility] [id number] 21:59:00 Test Item Value Reference Range Interpretation Comments Albumin Lvl (test code = Albumin Lvl) 3.6 3.5-5.0 [facility] [id number] 21:59:00 Test Item Value Reference Range Interpretation Comments ALT (test code = ALT) 18 See_Comment [Auto mated message] The system which ge nerated this result transmit shaun reference range : <=65. The reference range was not used to interpr et this result as jackeline l/abnormal. [facility] [id number] 21:59:00 Test Item Value Reference Range Interpretation Comments AST (test code = AST) 21 See_Comment [Auto mated message] The system which ge nerated this result transmit shaun reference range : <=37. The reference range was not used to interpr et this result as jackeline l/abnormal. [employer] [id number] 21:59:00 Test Item Value Reference Range Interpretation Comments Alk Phos (test code = Alk Phos) 95 39-136 [facility] [employer] [id number] 21:59:00 Test Item Value Reference Range Interpretation Comments Bili Total (test code = Bili Total) 0.5 0.2-1.3 [facility] [id number] 21:59:00 Test Item Value Reference Range Interpretation Comments AGAP (test code = AGAP) 3.4 10.0-20.0 [facility] [id number] 21:59:00 Test Item Value Reference Range Interpretation Comments B/C Ratio (test code = B/C Ratio) 16 1 6-25 [facility] [id number] 21:59:00 Test Item Value Reference Range Interpretation Comments Globulin (test code = Globulin) 4.5 2.7-4.2 [facility] [id number] 21:59:00 Test Item Value Reference Range Interpretation Comments A/G Ratio (test code = A/G Ratio) 0.8 1 0.7-1.6 [facility] [employer]2020-01-11 21:59:00 Test Item Value Reference Range Interpretation Comments eGFR (test code = eGFR) 78 [facility] [id number] 21:59:00 Test Item Value Reference Range Interpretation Comments Lipase Lvl (test code = Lipase Lvl) 112 73-393 [facility] [employer] [id number] 21:59:00 Test Item Value Reference Range Interpretation Comments Magnesium Lvl (test code = Magnesium 1.6 1.8-2.4 Lvl) [id number] 21:59:00 Test Item Value Reference Range Interpretation Comments WBC (test code = WBC) 7.6 3.7-10.4 [facility] [id number] 21:59:00 Test Item Value Reference Range Interpretation Comments RBC (test code = RBC) 4.45 4.20-5.40 [facility] [id number] 21:59:00 Test Item Value Reference Range Interpretation Comments Hgb (test code = Hgb) 13.6 12.0-16.0 [facility] PasoIdnlogpPJTADMVNYP5882-67-22 21:59:00 Test Item Value Reference Range Interpretation Comments Hct (test code = Hct) 40.3 36.0-48.0 [facility] PasoHdyfejnUWSOIURWKB1454-06-19 21:59:00 Test Item Value Reference Range Interpretation Comments MCV (test code = MCV) 90.6 80.0-98.0 [facility] PasoXfuawufBZUHJMSDZR0263-68-60 21:59:00 Test Item Value Reference Range Interpretation Comments MCH (test code = MCH) 30.5 pg 27.0-31.0 [facility] PasoThrqzpkTHMSSIBJSL8325-61-27 21:59:00 Test Item Value Reference Range Interpretation Comments MCHC (test code = MCHC) 33.7 32.0-36.0 [facility] [id number] 21:59:00 Test Item Value Reference Range Interpretation Comments RDW (test code = RDW) 12.9 11.5-14.5 [facility] PasoIobhqczIAJSEQEDWJ1424-63-00 21:59:00 Test Item Value Reference Range Interpretation Comments Platelet (test code = Platelet) 192 133-450 [facility] [id number] 21:59:00 Test Item Value Reference Range Interpretation Comments MPV (test code = MPV) 9.6 7.4-10.4 [facility] PasoRueyccwGKHFDMLBXQ1067-81-40 21:59:00 Test Item Value Reference Range Interpretation Comments PT (test code = PT) 13.7 s 12.0-14.7 [facility] [id number] 21:59:00 Test Item Value Reference Range Interpretation Comments INR (test code = INR) 1.05 1 0.85-1.17 [place] 107530-01-11 21:59:00 Test Item Value Reference Range Interpretation Comments Segs (test code = Segs) 67.6 45.0-75.0 [place] 107530-01-11 21:59:00 Test Item Value Reference Range Interpretation Comments Lymphocytes (test code = Lymphocytes) 23.6 20.0-40.0 [place] 107530-01-11 21:59:00 Test Item Value Reference Range Interpretation Comments Monocytes (test code = Monocytes) 5.8 2.0-12.0 [place] [address]-01-11 21:59:00 Test Item Value Reference Range Interpretation Comments Eosinophils (test code = 2.5 See_Comment [A utomated message] The Eosinophils) system which ge nerated this result tra nsmitted reference range : <=4.0. The reference r lily was not used to int erpret this result as normal/abnormal . [place] 107530-01-11 21:59:00 Test Item Value Reference Range Interpretation Comments Basophils (test code = 0.5 See_Comment [Aut omated message] The Basophils) system which ge nerated this result tra nsmitted reference range : <=1.0. The reference r lily was not used to int erpret this result as normal/abnormal . [place] 107530-01-11 21:59:00 Test Item Value Reference Range Interpretation Comments Neutrophils # (test code = Neutrophils 5.1 1.5-8.1 #) [place] 107530-01-11 21:59:00 Test Item Value Reference Range Interpretation Comments Lymphocytes # (test code = Lymphocytes 1.8 1.0-5.5 #) [place] 107530-01-11 21:59:00 Test Item Value Reference Range Interpretation Comments Monocytes # (test code 0.4 See_Comment [Aut omated message] The = Monocytes #) system which generated this result tra nsmitted reference range : <=0.8. The reference r lily was not used to int erpret this result as normal/abnormal . [place] 107530-01-11 21:59:00 Test Item Value Reference Range Interpretation Comments Eosinophils # (test code 0.2 See_Comment [A utomated message] The = Eosinophils #) system whic h generated this result tra nsmitted reference range : <=0.5. The reference r lily was not used to int erpret this result as normal/abnormal . [facility] [id number] 21:59:00 Test Item Value Reference Range Interpretation Comments UA Color (test code = Yellow *NA*(04/09/19 UA Color) 3:59 PM) [facility] AND [id number] 21:59:00 Test Item Value Reference Range Interpretation Comments UA Turbidity (test code = Clear (04/09/19 3:59 UA Turbidity) PM) [facility] [id number] 21:59:00 Test Item Value Reference Range Interpretation Comments UA Spec Grav (test code = UA Spec 1.010 1 Grav) [facility] [id number] 21:59:00 Test Item Value Reference Range Interpretation Comments UA pH (test code = UA pH) 6.0 1 5.0-8.0 [facility] [id number] 21:59:00 Test Item Value Reference Range Interpretation Comments UA Protein (test code Negative (04/09/19 3:59 = UA Protein) PM) [facility] [id number] 21:59:00 Test Item Value Reference Range Interpretation Comments UA Glucose (test code Negative (04/09/19 3:59 = UA Glucose) PM) [facility] AND [id number] 21:59:00 Test Item Value Reference Range Interpretation Comments UA Ketones (test code Negative *NA*(04/09/19 = UA Ketones) 3:59 PM) [facility] [id number] 21:59:00 Test Item Value Reference Range Interpretation Comments UA Bili (test code = Negative *NA*(04/09/19 UA Bili) 3:59 PM) [facility] [id number] 21:59:00 Test Item Value Reference Range Interpretation Comments UA Blood (test code = Trace *ABN*(04/09/19 UA Blood) 3:59 PM) [facility] [id number] 21:59:00 Test Item Value Reference Range Interpretation Comments UA Urobilinogen (test code = UA 0.2 0.1-1.0 Urobilinogen) [facility] [id number] 21:59:00 Test Item Value Reference Range Interpretation Comments UA Nitrite (test code Negative (04/09/19 3:59 = UA Nitrite) PM) [facility] [id number] 21:59:00 Test Item Value Reference Range Interpretation Comments UA Leuk Est (test Negative (04/09/19 3:59 code = UA Leuk Est) PM) [facility] [id number] 21:59:00 Test Item Value Reference Range Interpretation Comments UA Sq Epi (test code = UA Sq Occasional /LPF Epi) [facility] [id number] 21:59:00 Test Item Value Reference Range Interpretation Comments UA WBC (test code = UA None Seen (04/09/19 3:59 WBC) PM) [facility] [id number] 21:59:00 Test Item Value Reference Range Interpretation Comments UA RBC (test code = 3-5 /HPF See_Comment [Automa shaun message] The UA RBC) system which ge nerated this result tra nsmitted reference range : <=2. The reference range was not used to interpr et this result as jackeline l/abnormal. [facility] [id number] 21:59:00 Test Item Value Reference Range Interpretation Comments UA Bacteria (test code = None Seen (04/09/19 UA Bacteria) 3:59 PM) [facility] [id number] 21:59:00 Test Item Value Reference Range Interpretation Comments Total CK (test code = Total CK) 93 12-191 [facility] [id number] 21:59:00 Test Item Value Reference Range Interpretation Comments Troponin-I (test code 0.03 See_Comment [Auto mated message] The = Troponin-I) system which g enerated this result transmit shaun reference range : <=0.40. The reference r lily was not used to interpr et this result as jackeline l/abnormal. [facility] [id number] 21:59:00 Test Item Value Reference Range Interpretation Comments Glucose Lvl (test code = Glucose Lvl) 142 70-99 [facility] fav[facility]or[facility]it [id number] 21:59:00 Test Item Value Reference Range Interpretation Comments BUN (test code = BUN) 13 7-22 [place] 626920-01-11 21:59:00 Test Item Value Reference Range Interpretation Comments Creatinine Lvl (test code = Creatinine 0.79 0.50-1.40 Lvl) [place] 626920-01-11 21:59:00 Test Item Value Reference Range Interpretation Comments Sodium Lvl (test code = Sodium Lvl) 131 135-145 [place] 626920-01-11 21:59:00 Test Item Value Reference Range Interpretation Comments Potassium Lvl (test code = Potassium 3.4 3.5-5.1 Lvl) [place] 626920-01-11 21:59:00 Test Item Value Reference Range Interpretation Comments Chloride Lvl (test code = Chloride Lvl) 98 95-109 [place] [place] 626920-01-11 21:59:00 Test Item Value Reference Range Interpretation Comments CO2 (test code = CO2) 33 24-32 [place] 626920-01-11 21:59:00 Test Item Value Reference Range Interpretation Comments Calcium Lvl (test code = Calcium Lvl) 9.3 8.5-10.5 [place] 626920-01-11 21:59:00 Test Item Value Reference Range Interpretation Comments Total Protein (test code = Total 8.1 6.4-8.4 Protein) [place] 626920-01-11 21:59:00 Test Item Value Reference Range Interpretation Comments Albumin Lvl (test code = Albumin Lvl) 3.6 3.5-5.0 [place] 626920-01-11 21:59:00 Test Item Value Reference Range Interpretation Comments ALT (test code = ALT) 18 See_Comment [Auto mated message] The system which ge nerated this result transmit shaun reference range : <=65. The reference range was not used to interpr et this result as jackeline l/abnormal. [facility] [id number] 21:59:00 Test Item Value Reference Range Interpretation Comments AST (test code = AST) 21 See_Comment [Auto mated message] The system which ge nerated this result transmit shaun reference range : <=37. The reference range was not used to interpr et this result as jackeline l/abnormal. [facility] [id number] 21:59:00 Test Item Value Reference Range Interpretation Comments Alk Phos (test code = Alk Phos) 95 39-136 [facility]2020-01-11 21:59:00 Test Item Value Reference Range Interpretation Comments Bili Total (test code = Bili Total) 0.5 0.2-1.3 [place] 626920-01-11 21:59:00 Test Item Value Reference Range Interpretation Comments AGAP (test code = AGAP) 3.4 10.0-20.0 [place] 626920-01-11 21:59:00 Test Item Value Reference Range Interpretation Comments B/C Ratio (test code = B/C Ratio) 16 1 6-25 [place] 626920-01-11 21:59:00 Test Item Value Reference Range Interpretation Comments Globulin (test code = Globulin) 4.5 2.7-4.2 [place] 626920-01-11 21:59:00 Test Item Value Reference Range Interpretation Comments A/G Ratio (test code = A/G Ratio) 0.8 1 0.7-1.6 [place] [address]-01-11 21:59:00 Test Item Value Reference Range Interpretation Comments eGFR (test code = eGFR) 78 [facility]2020-01-11 21:59:00 Test Item Value Reference Range Interpretation Comments Lipase Lvl (test code = Lipase Lvl) 112 73-393 [facility]2020-01-11 21:59:00 Test Item Value Reference Range Interpretation Comments Magnesium Lvl (test code = Magnesium 1.6 1.8-2.4 Lvl) [place] 107530-01-11 21:59:00 Test Item Value Reference Range Interpretation Comments WBC (test code = WBC) 7.6 3.7-10.4 [place] 107530-01-11 21:59:00 Test Item Value Reference Range Interpretation Comments RBC (test code = RBC) 4.45 4.20-5.40 [place] [address]-01-11 21:59:00 Test Item Value Reference Range Interpretation Comments Hgb (test code = Hgb) 13.6 12.0-16.0 [place] 70[address]-01-11 21:59:00 Test Item Value Reference Range Interpretation Comments Hct (test code = Hct) 40.3 36.0-48.0 [facility]NrrmejiKINHDGPYAF9666-96-03 21:59:00 Test Item Value Reference Range Interpretation Comments MCV (test code = MCV) 90.6 80.0-98.0 [facility] PasoMgtkwfpFICXINXADJ0217-96-66 21:59:00 Test Item Value Reference Range Interpretation Comments MCH (test code = MCH) 30.5 pg 27.0-31.0 [facility] PasoWuteywaKCWEIKVSLA1713-57-89 21:59:00 Test Item Value Reference Range Interpretation Comments MCHC (test code = MCHC) 33.7 32.0-36.0 [facility] PasoDbimhadTOTKAJDKDM6490-85-16 21:59:00 Test Item Value Reference Range Interpretation Comments RDW (test code = RDW) 12.9 11.5-14.5 [place] 107530-01-11 21:59:00 Test Item Value Reference Range Interpretation Comments Platelet (test code = Platelet) 192 133-450 [facility] PasoRenrvcoQIRPPEWBUF9949-78-32 21:59:00 Test Item Value Reference Range Interpretation Comments MPV (test code = MPV) 9.6 7.4-10.4 [facility] PasoIwdwrdpPXZYRYUWVX1874-23-55 21:59:00 Test Item Value Reference Range Interpretation Comments PT (test code = PT) 13.7 s 12.0-14.7 [facility] PasoIzvswnnOOSEJQDDNB0502-47-39 21:59:00 Test Item Value Reference Range Interpretation Comments INR (test code = INR) 1.05 1 0.85-1.17 [facility] PasoPdwpvdlUUIRLCFBUP4238-30-65 21:59:00 Test Item Value Reference Range Interpretation Comments Segs (test code = Segs) 67.6 45.0-75.0 [facility] PasoRmvvhliAPQANPZCCR1618-08-24 21:59:00 Test Item Value Reference Range Interpretation Comments Lymphocytes (test code = Lymphocytes) 23.6 20.0-40.0 [facility] PasoUieswshNOIDUBFZSO8111-14-86 21:59:00 Test Item Value Reference Range Interpretation Comments Monocytes (test code = Monocytes) 5.8 2.0-12.0 [place] 107530-01-11 21:59:00 Test Item Value Reference Range Interpretation Comments Eosinophils (test code = 2.5 See_Comment [A utomated message] The Eosinophils) system which ge nerated this result tra nsmitted reference range : <=4.0. The reference r lily was not used to int erpret this result as normal/abnormal . [facility] PasoZdnqwaxHMWFNAXBGS4971-93-27 21:59:00 Test Item Value Reference Range Interpretation Comments Basophils (test code = 0.5 See_Comment [Aut omated message] The Basophils) system which ge nerated this result tra nsmitted reference range : <=1.0. The reference r lily was not used to int erpret this result as normal/abnormal . [facility] PasoKzqgrryPKPRPZVKIC6110-15-85 21:59:00 Test Item Value Reference Range Interpretation Comments Neutrophils # (test code = Neutrophils 5.1 1.5-8.1 #) [facility] PasoGcigwipPHLVMCKAVI5853-24-56 21:59:00 Test Item Value Reference Range Interpretation Comments Lymphocytes # (test code = Lymphocytes 1.8 1.0-5.5 #) [facility] PasoMfderdnHAHSSOWJCU7678-14-89 21:59:00 Test Item Value Reference Range Interpretation Comments Monocytes # (test code 0.4 See_Comment [Aut omated message] The = Monocytes #) system which generated this result tra nsmitted reference range : <=0.8. The reference r lily was not used to int erpret this result as normal/abnormal . [facility] PasoUnrjquwXKZTVNUTXW0438-43-08 21:59:00 Test Item Value Reference Range Interpretation Comments Eosinophils # (test code 0.2 See_Comment [A utomated message] The = Eosinophils #) system whic h generated this result tra nsmitted reference range : <=0.5. The reference r lily was not used to int erpret this result as normal/abnormal . [facility] AND [id number] 21:59:00 Test Item Value Reference Range Interpretation Comments UA Color (test code = Yellow *NA*(04/09/19 UA Color) 3:59 PM) [facility] AND [id number] 21:59:00 Test Item Value Reference Range Interpretation Comments UA Turbidity (test code = Clear (04/09/19 3:59 UA Turbidity) PM) [facility] AND [id number] 21:59:00 Test Item Value Reference Range Interpretation Comments UA Spec Grav (test code = UA Spec 1.010 1 Grav) [facility] AND [id number] 21:59:00 Test Item Value Reference Range Interpretation Comments UA pH (test code = UA pH) 6.0 1 5.0-8.0 [facility] AND [id number] 21:59:00 Test Item Value Reference Range Interpretation Comments UA Protein (test code Negative (04/09/19 3:59 = UA Protein) PM) [facility] AND [id number] 21:59:00 Test Item Value Reference Range Interpretation Comments UA Glucose (test code Negative (04/09/19 3:59 = UA Glucose) PM) [facility] [id number] 21:59:00 Test Item Value Reference Range Interpretation Comments UA Ketones (test code Negative *NA*(04/09/19 = UA Ketones) 3:59 PM) [facility] AND [id number] 21:59:00 Test Item Value Reference Range Interpretation Comments UA Bili (test code = Negative *NA*(04/09/19 UA Bili) 3:59 PM) [facility] AND [id number] 21:59:00 Test Item Value Reference Range Interpretation Comments UA Blood (test code = Trace *ABN*(04/09/19 UA Blood) 3:59 PM) [facility] AND [id number] 21:59:00 Test Item Value Reference Range Interpretation Comments UA Urobilinogen (test code = UA 0.2 0.1-1.0 Urobilinogen) [facility] AND [id number] 21:59:00 Test Item Value Reference Range Interpretation Comments UA Nitrite (test code Negative (04/09/19 3:59 = UA Nitrite) PM) [facility] AND [id number] 21:59:00 Test Item Value Reference Range Interpretation Comments UA Leuk Est (test Negative (04/09/19 3:59 code = UA Leuk Est) PM) [facility] AND [id number] 21:59:00 Test Item Value Reference Range Interpretation Comments UA Sq Epi (test code = UA Sq Occasional /LPF Epi) [facility] AND [id number] 21:59:00 Test Item Value Reference Range Interpretation Comments UA WBC (test code = UA None Seen (1/11/20 3:59 WBC) PM) [facility] [id number] 21:59:00 Test Item Value Reference Range Interpretation Comments UA RBC (test code = 3-5 /HPF See_Comment [Automa shaun message] The UA RBC) system which ge nerated this result tra nsmitted reference range : <=2. The reference range was not used to interpr et this result as jackeline l/abnormal. [facility] AND [id number] 21:59:00 Test Item Value Reference Range Interpretation Comments UA Bacteria (test code = None Seen (04/09/19 UA Bacteria) 3:59 PM) [facility] UptownTabSquareCARDIAC [id number] 21:59:00 Test Item Value Reference Range Interpretation Comments Total CK (test code = Total CK) 93 12-191 [facility] UptownTabSquareCARPark Energy ServicesAC [id number] 21:59:00 Test Item Value Reference Range Interpretation Comments Troponin-I (test code 0.03 See_Comment [Auto mated message] The = Troponin-I) system which g enerated this result transmit shaun reference range : <=0.40. The reference r lily was not used to interpr et this result as jackeline l/abnormal. [facility] fav[employer] [id number] 21:59:00 Test Item Value Reference Range Interpretation Comments Glucose Lvl (test code = Glucose Lvl) 142 70-99 [facility] [employer]it [id number] 21:59:00 Test Item Value Reference Range Interpretation Comments BUN (test code = BUN) 13 7-22 [facility] [employer] [id number] 21:59:00 Test Item Value Reference Range Interpretation Comments Creatinine Lvl (test code = Creatinine 0.79 0.50-1.40 Lvl) [facility] [employer] [id number] 21:59:00 Test Item Value Reference Range Interpretation Comments Sodium Lvl (test code = Sodium Lvl) 131 135-145 [facility] fav[employer]it [id number] 21:59:00 Test Item Value Reference Range Interpretation Comments Potassium Lvl (test code = Potassium 3.4 3.5-5.1 Lvl) [facility] [id number] 21:59:00 Test Item Value Reference Range Interpretation Comments Chloride Lvl (test code = Chloride Lvl) 98 95-109 [facility]2020-01-11 21:59:00 Test Item Value Reference Range Interpretation Comments CO2 (test code = CO2) 33 24-32 [place] 626920-01-11 21:59:00 Test Item Value Reference Range Interpretation Comments Calcium Lvl (test code = Calcium Lvl) 9.3 8.5-10.5 [place] 626920-01-11 21:59:00 Test Item Value Reference Range Interpretation Comments Total Protein (test code = Total 8.1 6.4-8.4 Protein) [place] 626920-01-11 21:59:00 Test Item Value Reference Range Interpretation Comments Albumin Lvl (test code = Albumin Lvl) 3.6 3.5-5.0 [facility]2020-01-11 21:59:00 Test Item Value Reference Range Interpretation Comments ALT (test code = ALT) 18 See_Comment [Auto mated message] The system which ge nerated this result transmit shaun reference range : <=65. The reference range was not used to interpr et this result as jackeline l/abnormal. [facility] [id number] 21:59:00 Test Item Value Reference Range Interpretation Comments AST (test code = AST) 21 See_Comment [Auto mated message] The system which ge nerated this result transmit shaun reference range : <=37. The reference range was not used to interpr et this result as jackeline l/abnormal. [place] 626920-01-11 21:59:00 Test Item Value Reference Range Interpretation Comments Alk Phos (test code = Alk Phos) 95 39-136 [facility]2020-01-11 21:59:00 Test Item Value Reference Range Interpretation Comments Bili Total (test code = Bili Total) 0.5 0.2-1.3 [place] 626920-01-11 21:59:00 Test Item Value Reference Range Interpretation Comments AGAP (test code = AGAP) 3.4 10.0-20.0 [place] 626920-01-11 21:59:00 Test Item Value Reference Range Interpretation Comments B/C Ratio (test code = B/C Ratio) 16 1 6-25 [facility] [id number] 21:59:00 Test Item Value Reference Range Interpretation Comments Globulin (test code = Globulin) 4.5 2.7-4.2 [facility]2020-01-11 21:59:00 Test Item Value Reference Range Interpretation Comments A/G Ratio (test code = A/G Ratio) 0.8 1 0.7-1.6 [place] 626920-01-11 21:59:00 Test Item Value Reference Range Interpretation Comments eGFR (test code = eGFR) 78 [place] 626920-01-11 21:59:00 Test Item Value Reference Range Interpretation Comments Lipase Lvl (test code = Lipase Lvl) 112 73-393 [place] 626920-01-11 21:59:00 Test Item Value Reference Range Interpretation Comments Magnesium Lvl (test code = Magnesium 1.6 1.8-2.4 Lvl) [facility] [id number] 21:59:00 Test Item Value Reference Range Interpretation Comments WBC (test code = WBC) 7.6 3.7-10.4 [facility] [id number] 21:59:00 Test Item Value Reference Range Interpretation Comments RBC (test code = RBC) 4.45 4.20-5.40 [facility] PasoLdltwuhJIBPFPKYZA7137-94-00 21:59:00 Test Item Value Reference Range Interpretation Comments Hgb (test code = Hgb) 13.6 12.0-16.0 [facility] [id number] 21:59:00 Test Item Value Reference Range Interpretation Comments Hct (test code = Hct) 40.3 36.0-48.0 [place] 107530-01-11 21:59:00 Test Item Value Reference Range Interpretation Comments MCV (test code = MCV) 90.6 80.0-98.0 [place] 107530-01-11 21:59:00 Test Item Value Reference Range Interpretation Comments MCH (test code = MCH) 30.5 pg 27.0-31.0 [place] 107530-01-11 21:59:00 Test Item Value Reference Range Interpretation Comments MCHC (test code = MCHC) 33.7 32.0-36.0 [place] 107530-01-11 21:59:00 Test Item Value Reference Range Interpretation Comments RDW (test code = RDW) 12.9 11.5-14.5 [place] 107530-01-11 21:59:00 Test Item Value Reference Range Interpretation Comments Platelet (test code = Platelet) 192 133-450 [facility] PasoZ[id number] 21:59:00 Test Item Value Reference Range Interpretation Comments MPV (test code = MPV) 9.6 7.4-10.4 [place] 107530-01-11 21:59:00 Test Item Value Reference Range Interpretation Comments PT (test code = PT) 13.7 s 12.0-14.7 [place] 107530-01-11 21:59:00 Test Item Value Reference Range Interpretation Comments INR (test code = INR) 1.05 1 0.85-1.17 [place] 107530-01-11 21:59:00 Test Item Value Reference Range Interpretation Comments Segs (test code = Segs) 67.6 45.0-75.0 [place] 107530-01-11 21:59:00 Test Item Value Reference Range Interpretation Comments Lymphocytes (test code = Lymphocytes) 23.6 20.0-40.0 [place] 107530-01-11 21:59:00 Test Item Value Reference Range Interpretation Comments Monocytes (test code = Monocytes) 5.8 2.0-12.0 [facility] [id number] 21:59:00 Test Item Value Reference Range Interpretation Comments Eosinophils (test code = 2.5 See_Comment [A utomated message] The Eosinophils) system which ge nerated this result tra nsmitted reference range : <=4.0. The reference r lily was not used to int erpret this result as normal/abnormal . [facility] [id number] 21:59:00 Test Item Value Reference Range Interpretation Comments Basophils (test code = 0.5 See_Comment [Aut omated message] The Basophils) system which ge nerated this result tra nsmitted reference range : <=1.0. The reference r lily was not used to int erpret this result as normal/abnormal . [place] 107530-01-11 21:59:00 Test Item Value Reference Range Interpretation Comments Neutrophils # (test code = Neutrophils 5.1 1.5-8.1 #) [facility] [id number] 21:59:00 Test Item Value Reference Range Interpretation Comments Lymphocytes # (test code = Lymphocytes 1.8 1.0-5.5 #) [facility] [id number] 21:59:00 Test Item Value Reference Range Interpretation Comments Monocytes # (test code 0.4 See_Comment [Aut omated message] The = Monocytes #) system which generated this result tra nsmitted reference range : <=0.8. The reference r lily was not used to int erpret this result as normal/abnormal . [facility] PasoOsrqzxxBZPRVZJNKO0338-11-06 21:59:00 Test Item Value Reference Range Interpretation Comments Eosinophils # (test code 0.2 See_Comment [A utomated message] The = Eosinophils #) system whic h generated this result tra nsmitted reference range : <=0.5. The reference r lily was not used to int erpret this result as normal/abnormal . [facility] AND [id number] 21:59:00 Test Item Value Reference Range Interpretation Comments UA Color (test code = Yellow *NA*(04/09/19 UA Color) 3:59 PM) [facility] AND [id number] 21:59:00 Test Item Value Reference Range Interpretation Comments UA Turbidity (test code = Clear (04/09/19 3:59 UA Turbidity) PM) [facility] AND [id number] 21:59:00 Test Item Value Reference Range Interpretation Comments UA Spec Grav (test code = UA Spec 1.010 1 Grav) [facility] AND [id number] 21:59:00 Test Item Value Reference Range Interpretation Comments UA pH (test code = UA pH) 6.0 1 5.0-8.0 [facility] AND [id number] 21:59:00 Test Item Value Reference Range Interpretation Comments UA Protein (test code Negative (04/09/19 3:59 = UA Protein) PM) [facility] AND [id number] 21:59:00 Test Item Value Reference Range Interpretation Comments UA Glucose (test code Negative (04/09/19 3:59 = UA Glucose) PM) [facility] AND [id number] 21:59:00 Test Item Value Reference Range Interpretation Comments UA Ketones (test code Negative *NA*(04/09/19 = UA Ketones) 3:59 PM) [facility] [id number] 21:59:00 Test Item Value Reference Range Interpretation Comments UA Bili (test code = Negative *NA*(04/09/19 UA Bili) 3:59 PM) [facility] [id number] 21:59:00 Test Item Value Reference Range Interpretation Comments UA Blood (test code = Trace *ABN*(04/09/19 UA Blood) 3:59 PM) [facility] [id number] 21:59:00 Test Item Value Reference Range Interpretation Comments UA Urobilinogen (test code = UA 0.2 0.1-1.0 Urobilinogen) [facility] [id number] 21:59:00 Test Item Value Reference Range Interpretation Comments UA Nitrite (test code Negative (04/09/19 3:59 = UA Nitrite) PM) [facility] [id number] 21:59:00 Test Item Value Reference Range Interpretation Comments UA Leuk Est (test Negative (04/09/19 3:59 code = UA Leuk Est) PM) [facility] [id number] 21:59:00 Test Item Value Reference Range Interpretation Comments UA Sq Epi (test code = UA Sq Occasional /LPF Epi) [facility] [id number] 21:59:00 Test Item Value Reference Range Interpretation Comments UA WBC (test code = UA None Seen (04/09/19 3:59 WBC) PM) [facility] [id number] 21:59:00 Test Item Value Reference Range Interpretation Comments UA RBC (test code = 3-5 /HPF See_Comment [Automa shaun message] The UA RBC) system which ge nerated this result tra nsmitted reference range : <=2. The reference range was not used to interpr et this result as jackeline l/abnormal. [facility] [id number] 21:59:00 Test Item Value Reference Range Interpretation Comments UA Bacteria (test code = None Seen (04/09/19 UA Bacteria) 3:59 PM) [facility] [id number] 21:59:00 Test Item Value Reference Range Interpretation Comments Total CK (test code = Total CK) 93 12-191 [facility] [id number] 21:59:00 Test Item Value Reference Range Interpretation Comments Troponin-I (test code 0.03 See_Comment [Auto mated message] The = Troponin-I) system which g enerated this result transmit shaun reference range : <=0.40. The reference r lily was not used to interpr et this result as jackeline l/abnormal. [facility] [employer] [id number] 21:59:00 Test Item Value Reference Range Interpretation Comments Glucose Lvl (test code = Glucose Lvl) 142 70-99 [facility] [id number] 21:59:00 Test Item Value Reference Range Interpretation Comments BUN (test code = BUN) 13 7-22 [facility] [id number] 21:59:00 Test Item Value Reference Range Interpretation Comments Creatinine Lvl (test code = Creatinine 0.79 0.50-1.40 Lvl) [facility] [id number] 21:59:00 Test Item Value Reference Range Interpretation Comments Sodium Lvl (test code = Sodium Lvl) 131 135-145 [facility] [id number] 21:59:00 Test Item Value Reference Range Interpretation Comments Potassium Lvl (test code = Potassium 3.4 3.5-5.1 Lvl) [facility] [id number] 21:59:00 Test Item Value Reference Range Interpretation Comments Chloride Lvl (test code = Chloride Lvl) 98 95-109 [facility] [id number] 21:59:00 Test Item Value Reference Range Interpretation Comments CO2 (test code = CO2) 33 24-32 [facility] [id number] 21:59:00 Test Item Value Reference Range Interpretation Comments Calcium Lvl (test code = Calcium Lvl) 9.3 8.5-10.5 [facility] [id number] 21:59:00 Test Item Value Reference Range Interpretation Comments Total Protein (test code = Total 8.1 6.4-8.4 Protein) [facility]2020-01-11 21:59:00 Test Item Value Reference Range Interpretation Comments Albumin Lvl (test code = Albumin Lvl) 3.6 3.5-5.0 [facility] [id number] 21:59:00 Test Item Value Reference Range Interpretation Comments ALT (test code = ALT) 18 See_Comment [Auto mated message] The system which ge nerated this result transmit shaun reference range : <=65. The reference range was not used to interpr et this result as jackeline l/abnormal. [employer] [id number] 21:59:00 Test Item Value Reference Range Interpretation Comments AST (test code = AST) 21 See_Comment [Auto mated message] The system which ge nerated this result transmit shaun reference range : <=37. The reference range was not used to interpr et this result as jackeline l/abnormal. [employer] [id number] 21:59:00 Test Item Value Reference Range Interpretation Comments Alk Phos (test code = Alk Phos) 95 39-136 [facility] [employer] [id number] 21:59:00 Test Item Value Reference Range Interpretation Comments Bili Total (test code = Bili Total) 0.5 0.2-1.3 [facility] fav[employer]or[employer]it [id number] 21:59:00 Test Item Value Reference Range Interpretation Comments AGAP (test code = AGAP) 3.4 10.0-20.0 [facility] fav.or.it [id number] 21:59:00 Test Item Value Reference Range Interpretation Comments B/C Ratio (test code = B/C Ratio) 16 1 6-25 [facility] fav[facility]or.it [id number] 21:59:00 Test Item Value Reference Range Interpretation Comments Globulin (test code = Globulin) 4.5 2.7-4.2 [facility] fav[facility]or.it [id number] 21:59:00 Test Item Value Reference Range Interpretation Comments A/G Ratio (test code = A/G Ratio) 0.8 1 0.7-1.6 [facility] fav[facility]or[facility]it [id number] 21:59:00 Test Item Value Reference Range Interpretation Comments eGFR (test code = eGFR) 78 [facility] fav.or.it [id number] 21:59:00 Test Item Value Reference Range Interpretation Comments Lipase Lvl (test code = Lipase Lvl) 112 73-393 [facility] fav[facility]or[facility]it [id number] 21:59:00 Test Item Value Reference Range Interpretation Comments Magnesium Lvl (test code = Magnesium 1.6 1.8-2.4 Lvl) [id number] 21:59:00 Test Item Value Reference Range Interpretation Comments WBC (test code = WBC) 7.6 3.7-10.4 [facility] PasoAydbfeqOXFVQHPFGS8220-06-11 21:59:00 Test Item Value Reference Range Interpretation Comments RBC (test code = RBC) 4.45 4.20-5.40 [place] 107530-01-11 21:59:00 Test Item Value Reference Range Interpretation Comments Hgb (test code = Hgb) 13.6 12.0-16.0 [place] 107530-01-11 21:59:00 Test Item Value Reference Range Interpretation Comments Hct (test code = Hct) 40.3 36.0-48.0 [facility] [id number] 21:59:00 Test Item Value Reference Range Interpretation Comments MCV (test code = MCV) 90.6 80.0-98.0 [place] 107530-01-11 21:59:00 Test Item Value Reference Range Interpretation Comments MCH (test code = MCH) 30.5 pg 27.0-31.0 [facility] Pa[id number] 21:59:00 Test Item Value Reference Range Interpretation Comments MCHC (test code = MCHC) 33.7 32.0-36.0 [facility] [id number] 21:59:00 Test Item Value Reference Range Interpretation Comments RDW (test code = RDW) 12.9 11.5-14.5 [facility] [id number] 21:59:00 Test Item Value Reference Range Interpretation Comments Platelet (test code = Platelet) 192 133-450 [facility] [id number] 21:59:00 Test Item Value Reference Range Interpretation Comments MPV (test code = MPV) 9.6 7.4-10.4 [place] 107530-01-11 21:59:00 Test Item Value Reference Range Interpretation Comments PT (test code = PT) 13.7 s 12.0-14.7 [place] 107530-01-11 21:59:00 Test Item Value Reference Range Interpretation Comments INR (test code = INR) 1.05 1 0.85-1.17 [facility] [id number] 21:59:00 Test Item Value Reference Range Interpretation Comments Segs (test code = Segs) 67.6 45.0-75.0 [place] 107530-01-11 21:59:00 Test Item Value Reference Range Interpretation Comments Lymphocytes (test code = Lymphocytes) 23.6 20.0-40.0 [place] 107530-01-11 21:59:00 Test Item Value Reference Range Interpretation Comments Monocytes (test code = Monocytes) 5.8 2.0-12.0 [place] 107530-01-11 21:59:00 Test Item Value Reference Range Interpretation Comments Eosinophils (test code = 2.5 See_Comment [A utomated message] The Eosinophils) system which ge nerated this result tra nsmitted reference range : <=4.0. The reference r lily was not used to int erpret this result as normal/abnormal . [place] 107530-01-11 21:59:00 Test Item Value Reference Range Interpretation Comments Basophils (test code = 0.5 See_Comment [Aut omated message] The Basophils) system which ge nerated this result tra nsmitted reference range : <=1.0. The reference r lily was not used to int erpret this result as normal/abnormal . [place] 107530-01-11 21:59:00 Test Item Value Reference Range Interpretation Comments Neutrophils # (test code = Neutrophils 5.1 1.5-8.1 #) [place] 107530-01-11 21:59:00 Test Item Value Reference Range Interpretation Comments Lymphocytes # (test code = Lymphocytes 1.8 1.0-5.5 #) [place] 107530-01-11 21:59:00 Test Item Value Reference Range Interpretation Comments Monocytes # (test code 0.4 See_Comment [Aut omated message] The = Monocytes #) system which generated this result tra nsmitted reference range : <=0.8. The reference r lily was not used to int erpret this result as normal/abnormal . [place] 107530-01-11 21:59:00 Test Item Value Reference Range Interpretation Comments Eosinophils # (test code 0.2 See_Comment [A utomated message] The = Eosinophils #) system wh h generated this result tra nsmitted reference range : <=0.5. The reference r lily was not used to int erpret this result as normal/abnormal . [facility] AND [id number] 21:59:00 Test Item Value Reference Range Interpretation Comments UA Color (test code = Yellow *NA*(04/09/19 UA Color) 3:59 PM) [facility] AND [id number] 21:59:00 Test Item Value Reference Range Interpretation Comments UA Turbidity (test code = Clear (04/09/19 3:59 UA Turbidity) PM) [facility] AND [id number] 21:59:00 Test Item Value Reference Range Interpretation Comments UA Spec Grav (test code = UA Spec 1.010 1 Grav) [facility] AND [id number] 21:59:00 Test Item Value Reference Range Interpretation Comments UA pH (test code = UA pH) 6.0 1 5.0-8.0 [facility] AND [id number] 21:59:00 Test Item Value Reference Range Interpretation Comments UA Protein (test code Negative (04/09/19 3:59 = UA Protein) PM) [facility] AND [id number] 21:59:00 Test Item Value Reference Range Interpretation Comments UA Glucose (test code Negative (04/09/19 3:59 = UA Glucose) PM) [facility] AND [id number] 21:59:00 Test Item Value Reference Range Interpretation Comments UA Ketones (test code Negative *NA*(04/09/19 = UA Ketones) 3:59 PM) [facility] AND [id number] 21:59:00 Test Item Value Reference Range Interpretation Comments UA Bili (test code = Negative *NA*(04/09/19 UA Bili) 3:59 PM) [facility] AND [id number] 21:59:00 Test Item Value Reference Range Interpretation Comments UA Blood (test code = Trace *ABN*(04/09/19 UA Blood) 3:59 PM) [facility] AND [id number] 21:59:00 Test Item Value Reference Range Interpretation Comments UA Urobilinogen (test code = UA 0.2 0.1-1.0 Urobilinogen) [facility] AND [id number] 21:59:00 Test Item Value Reference Range Interpretation Comments UA Nitrite (test code Negative (04/09/19 3:59 = UA Nitrite) PM) [facility] AND [id number] 21:59:00 Test Item Value Reference Range Interpretation Comments UA Leuk Est (test Negative (04/09/19 3:59 code = UA Leuk Est) PM) [facility] [id number] 21:59:00 Test Item Value Reference Range Interpretation Comments UA Sq Epi (test code = UA Sq Occasional /LPF Epi) [facility] [id number] 21:59:00 Test Item Value Reference Range Interpretation Comments UA WBC (test code = UA None Seen (04/09/19 3:59 WBC) PM) [facility] [id number] 21:59:00 Test Item Value Reference Range Interpretation Comments UA RBC (test code = 3-5 /HPF See_Comment [Automa shaun message] The UA RBC) system which ge nerated this result tra nsmitted reference range : <=2. The reference range was not used to interpr et this result as jackeline l/abnormal. [facility] [id number] 21:59:00 Test Item Value Reference Range Interpretation Comments UA Bacteria (test code = None Seen (04/09/19 UA Bacteria) 3:59 PM) [facility] [id number] 21:59:00 Test Item Value Reference Range Interpretation Comments Total CK (test code = Total CK) 93 12-191 [facility] [id number] 21:59:00 Test Item Value Reference Range Interpretation Comments Troponin-I (test code 0.03 See_Comment [Auto mated message] The = Troponin-I) system which g enerated this result transmit shaun reference range : <=0.40. The reference r lily was not used to interpr et this result as jackeline l/abnormal. [facility] [employer] [id number] 21:59:00 Test Item Value Reference Range Interpretation Comments Glucose Lvl (test code = Glucose Lvl) 142 70-99 [facility] fav.or.it [id number] 21:59:00 Test Item Value Reference Range Interpretation Comments BUN (test code = BUN) 13 7-22 [facility] [employer] [id number] 21:59:00 Test Item Value Reference Range Interpretation Comments Creatinine Lvl (test code = Creatinine 0.79 0.50-1.40 Lvl) [place] 626920-01-11 21:59:00 Test Item Value Reference Range Interpretation Comments Sodium Lvl (test code = Sodium Lvl) 131 135-145 [place] 626920-01-11 21:59:00 Test Item Value Reference Range Interpretation Comments Potassium Lvl (test code = Potassium 3.4 3.5-5.1 Lvl) [place] 626920-01-11 21:59:00 Test Item Value Reference Range Interpretation Comments Chloride Lvl (test code = Chloride Lvl) 98 95-109 [place] 626920-01-11 21:59:00 Test Item Value Reference Range Interpretation Comments CO2 (test code = CO2) 33 24-32 [place] 626920-01-11 21:59:00 Test Item Value Reference Range Interpretation Comments Calcium Lvl (test code = Calcium Lvl) 9.3 8.5-10.5 [place] 626920-01-11 21:59:00 Test Item Value Reference Range Interpretation Comments Total Protein (test code = Total 8.1 6.4-8.4 Protein) [place] 626920-01-11 21:59:00 Test Item Value Reference Range Interpretation Comments Albumin Lvl (test code = Albumin Lvl) 3.6 3.5-5.0 [place] 626920-01-11 21:59:00 Test Item Value Reference Range Interpretation Comments ALT (test code = ALT) 18 See_Comment [Auto mated message] The system which ge nerated this result transmit shaun reference range : <=65. The reference range was not used to interpr et this result as jackeline l/abnormal. [place] 626920-01-11 21:59:00 Test Item Value Reference Range Interpretation Comments AST (test code = AST) 21 See_Comment [Auto mated message] The system which ge nerated this result transmit shaun reference range : <=37. The reference range was not used to interpr et this result as jackeline l/abnormal. [place] 626920-01-11 21:59:00 Test Item Value Reference Range Interpretation Comments Alk Phos (test code = Alk Phos) 95 39-136 [place] 626920-01-11 21:59:00 Test Item Value Reference Range Interpretation Comments Bili Total (test code = Bili Total) 0.5 0.2-1.3 [place] 626920-01-11 21:59:00 Test Item Value Reference Range Interpretation Comments AGAP (test code = AGAP) 3.4 10.0-20.0 [place] 626920-01-11 21:59:00 Test Item Value Reference Range Interpretation Comments B/C Ratio (test code = B/C Ratio) 16 1 6-25 [place] [address]-01-11 21:59:00 Test Item Value Reference Range Interpretation Comments Globulin (test code = Globulin) 4.5 2.7-4.2 [place] 626920-01-11 21:59:00 Test Item Value Reference Range Interpretation Comments A/G Ratio (test code = A/G Ratio) 0.8 1 0.7-1.6 [place] [address]-01-11 21:59:00 Test Item Value Reference Range Interpretation Comments eGFR (test code = eGFR) 78 [place] 626920-01-11 21:59:00 Test Item Value Reference Range Interpretation Comments Lipase Lvl (test code = Lipase Lvl) 112 73-393 [facility]2020-01-11 21:59:00 Test Item Value Reference Range Interpretation Comments Magnesium Lvl (test code = Magnesium 1.6 1.8-2.4 Lvl) [place] 107530-01-11 21:59:00 Test Item Value Reference Range Interpretation Comments WBC (test code = WBC) 7.6 3.7-10.4 [place] 107530-01-11 21:59:00 Test Item Value Reference Range Interpretation Comments RBC (test code = RBC) 4.45 4.20-5.40 [place] [address]-01-11 21:59:00 Test Item Value Reference Range Interpretation Comments Hgb (test code = Hgb) 13.6 12.0-16.0 [place] 107530-01-11 21:59:00 Test Item Value Reference Range Interpretation Comments Hct (test code = Hct) 40.3 36.0-48.0 [place] 107530-01-11 21:59:00 Test Item Value Reference Range Interpretation Comments MCV (test code = MCV) 90.6 80.0-98.0 [facility] [id number] 21:59:00 Test Item Value Reference Range Interpretation Comments MCH (test code = MCH) 30.5 pg 27.0-31.0 [facility] [id number] 21:59:00 Test Item Value Reference Range Interpretation Comments MCHC (test code = MCHC) 33.7 32.0-36.0 [facility] [id number] 21:59:00 Test Item Value Reference Range Interpretation Comments RDW (test code = RDW) 12.9 11.5-14.5 [facility] [id number] 21:59:00 Test Item Value Reference Range Interpretation Comments Platelet (test code = Platelet) 192 133-450 [facility] [id number] 21:59:00 Test Item Value Reference Range Interpretation Comments MPV (test code = MPV) 9.6 7.4-10.4 [facility] [id number] 21:59:00 Test Item Value Reference Range Interpretation Comments PT (test code = PT) 13.7 s 12.0-14.7 [facility] PasoRnhxevbQVKVBPEWFV7173-43-57 21:59:00 Test Item Value Reference Range Interpretation Comments INR (test code = INR) 1.05 1 0.85-1.17 [place] 107530-01-11 21:59:00 Test Item Value Reference Range Interpretation Comments Segs (test code = Segs) 67.6 45.0-75.0 [facility] PasoBdevilbMHISSIXLPU5432-71-01 21:59:00 Test Item Value Reference Range Interpretation Comments Lymphocytes (test code = Lymphocytes) 23.6 20.0-40.0 [place] 107530-01-11 21:59:00 Test Item Value Reference Range Interpretation Comments Monocytes (test code = Monocytes) 5.8 2.0-12.0 [place] 107530-01-11 21:59:00 Test Item Value Reference Range Interpretation Comments Eosinophils (test code = 2.5 See_Comment [A utomated message] The Eosinophils) system which ge nerated this result tra nsmitted reference range : <=4.0. The reference r lily was not used to int erpret this result as normal/abnormal . [facility] PasoOetudkqVMILYGQYJM2139-31-15 21:59:00 Test Item Value Reference Range Interpretation Comments Basophils (test code = 0.5 See_Comment [Aut omated message] The Basophils) system which ge nerated this result tra nsmitted reference range : <=1.0. The reference r lily was not used to int erpret this result as normal/abnormal . [facility] [id number] 21:59:00 Test Item Value Reference Range Interpretation Comments Neutrophils # (test code = Neutrophils 5.1 1.5-8.1 #) [facility] [id number] 21:59:00 Test Item Value Reference Range Interpretation Comments Lymphocytes # (test code = Lymphocytes 1.8 1.0-5.5 #) [facility] [id number] 21:59:00 Test Item Value Reference Range Interpretation Comments Monocytes # (test code 0.4 See_Comment [Aut omated message] The = Monocytes #) system which generated this result tra nsmitted reference range : <=0.8. The reference r lily was not used to int erpret this result as normal/abnormal . [facility] PasoFzqyffjYUHKKIFOPW4395-09-22 21:59:00 Test Item Value Reference Range Interpretation Comments Eosinophils # (test code 0.2 See_Comment [A utomated message] The = Eosinophils #) system whic h generated this result tra nsmitted reference range : <=0.5. The reference r lily was not used to int erpret this result as normal/abnormal . [facility] AND [id number] 21:59:00 Test Item Value Reference Range Interpretation Comments UA Color (test code = Yellow *NA*(04/09/19 UA Color) 3:59 PM) [facility] AND [id number] 21:59:00 Test Item Value Reference Range Interpretation Comments UA Turbidity (test code = Clear (04/09/19 3:59 UA Turbidity) PM) [facility] AND [id number] 21:59:00 Test Item Value Reference Range Interpretation Comments UA Spec Grav (test code = UA Spec 1.010 1 Grav) [facility] AND [id number] 21:59:00 Test Item Value Reference Range Interpretation Comments UA pH (test code = UA pH) 6.0 1 5.0-8.0 [facility] [id number] 21:59:00 Test Item Value Reference Range Interpretation Comments UA Protein (test code Negative (04/09/19 3:59 = UA Protein) PM) [facility] [id number] 21:59:00 Test Item Value Reference Range Interpretation Comments UA Glucose (test code Negative (04/09/19 3:59 = UA Glucose) PM) [facility] [id number] 21:59:00 Test Item Value Reference Range Interpretation Comments UA Ketones (test code Negative *NA*(04/09/19 = UA Ketones) 3:59 PM) [facility] [id number] 21:59:00 Test Item Value Reference Range Interpretation Comments UA Bili (test code = Negative *NA*(04/09/19 UA Bili) 3:59 PM) [facility] AND [id number] 21:59:00 Test Item Value Reference Range Interpretation Comments UA Blood (test code = Trace *ABN*(04/09/19 UA Blood) 3:59 PM) [facility] [id number] 21:59:00 Test Item Value Reference Range Interpretation Comments UA Urobilinogen (test code = UA 0.2 0.1-1.0 Urobilinogen) [facility] [id number] 21:59:00 Test Item Value Reference Range Interpretation Comments UA Nitrite (test code Negative (04/09/19 3:59 = UA Nitrite) PM) [facility] [id number] 21:59:00 Test Item Value Reference Range Interpretation Comments UA Leuk Est (test Negative (04/09/19 3:59 code = UA Leuk Est) PM) [facility] [id number] 21:59:00 Test Item Value Reference Range Interpretation Comments UA Sq Epi (test code = UA Sq Occasional /LPF Epi) [facility] [id number] 21:59:00 Test Item Value Reference Range Interpretation Comments UA WBC (test code = UA None Seen (04/09/19 3:59 WBC) PM) [facility] AND [id number] 21:59:00 Test Item Value Reference Range Interpretation Comments UA RBC (test code = 3-5 /HPF See_Comment [Automa shaun message] The UA RBC) system which ge nerated this result tra nsmitted reference range : <=2. The reference range was not used to interpr et this result as jackelnie l/abnormal. [facility] AND [id number] 21:59:00 Test Item Value Reference Range Interpretation Comments UA Bacteria (test code = None Seen (04/09/19 UA Bacteria) 3:59 PM) [facility] [employer] EnergyannCARDIAC [id number] 21:59:00 Test Item Value Reference Range Interpretation Comments Total CK (test code = Total CK) 93 12-191 [facility] WozityouCARPark Energy ServicesAC [id number] 21:59:00 Test Item Value Reference Range Interpretation Comments Troponin-I (test code 0.03 See_Comment [Auto mated message] The = Troponin-I) system which g enerated this result transmit shaun reference range : <=0.40. The reference r lily was not used to interpr et this result as jackeline l/abnormal. [facility] WozityouCARDIAC [id number] 21:59:00 Test Item Value Reference Range Interpretation Comments Total CK (test code = Total CK) 93 12-191 [facility] SomewhereAC [id number] 21:59:00 Test Item Value Reference Range Interpretation Comments Troponin-I (test code 0.03 See_Comment [Auto mated message] The = Troponin-I) system which g enerated this result transmit shaun reference range : <=0.40. The reference r lily was not used to interpr et this result as jackeline l/abnormal. [facility] fav.or.it [id number] 21:59:00 Test Item Value Reference Range Interpretation Comments Glucose Lvl (test code = Glucose Lvl) 142 70-99 [facility]or[facility]it [id number] 21:59:00 Test Item Value Reference Range Interpretation Comments BUN (test code = BUN) 13 7-22 [facility] fav[facility]or.it [id number] 21:59:00 Test Item Value Reference Range Interpretation Comments Creatinine Lvl (test code = Creatinine 0.79 0.50-1.40 Lvl) [facility] fav[facility]or.it [id number] 21:59:00 Test Item Value Reference Range Interpretation Comments Sodium Lvl (test code = Sodium Lvl) 131 135-145 [place] 626920-01-11 21:59:00 Test Item Value Reference Range Interpretation Comments Potassium Lvl (test code = Potassium 3.4 3.5-5.1 Lvl) [place] 626920-01-11 21:59:00 Test Item Value Reference Range Interpretation Comments Chloride Lvl (test code = Chloride Lvl) 98 95-109 [place] 626920-01-11 21:59:00 Test Item Value Reference Range Interpretation Comments Glucose Lvl (test code = Glucose Lvl) 142 70-99 [facility]2020-01-11 21:59:00 Test Item Value Reference Range Interpretation Comments CO2 (test code = CO2) 33 24-32 [facility]2020-01-11 21:59:00 Test Item Value Reference Range Interpretation Comments Calcium Lvl (test code = Calcium Lvl) 9.3 8.5-10.5 [facility]2020-01-11 21:59:00 Test Item Value Reference Range Interpretation Comments Total Protein (test code = Total 8.1 6.4-8.4 Protein) [facility]2020-01-11 21:59:00 Test Item Value Reference Range Interpretation Comments Albumin Lvl (test code = Albumin Lvl) 3.6 3.5-5.0 [facility]2020-01-11 21:59:00 Test Item Value Reference Range Interpretation Comments ALT (test code = ALT) 18 See_Comment [Auto mated message] The system which ge nerated this result transmit shaun reference range : <=65. The reference range was not used to interpr et this result as jackeline l/abnormal. [place] 626920-01-11 21:59:00 Test Item Value Reference Range Interpretation Comments AST (test code = AST) 21 See_Comment [Auto mated message] The system which [employer] nerated this result transmit shaun reference range : <=37. The reference range was not used to interpr et this result as jackeline l/abnormal. [place] 626920-01-11 21:59:00 Test Item Value Reference Range Interpretation Comments Alk Phos (test code = Alk Phos) 95 39-136 [place] 626920-01-11 21:59:00 Test Item Value Reference Range Interpretation Comments Bili Total (test code = Bili Total) 0.5 0.2-1.3 [place] 626920-01-11 21:59:00 Test Item Value Reference Range Interpretation Comments AGAP (test code = AGAP) 3.4 10.0-20.0 [place] 626920-01-11 21:59:00 Test Item Value Reference Range Interpretation Comments B/C Ratio (test code = B/C Ratio) 16 1 6-25 [place] [address]-01-11 21:59:00 Test Item Value Reference Range Interpretation Comments BUN (test code = BUN) 13 7-22 [place] 626920-01-11 21:59:00 Test Item Value Reference Range Interpretation Comments Globulin (test code = Globulin) 4.5 2.7-4.2 [place] 626920-01-11 21:59:00 Test Item Value Reference Range Interpretation Comments A/G Ratio (test code = A/G Ratio) 0.8 1 0.7-1.6 [place] [address]-01-11 21:59:00 Test Item Value Reference Range Interpretation Comments eGFR (test code = eGFR) 78 [place] 626920-01-11 21:59:00 Test Item Value Reference Range Interpretation Comments Lipase Lvl (test code = Lipase Lvl) 112 73-393 [place] 626920-01-11 21:59:00 Test Item Value Reference Range Interpretation Comments Magnesium Lvl (test code = Magnesium 1.6 1.8-2.4 Lvl) [place] 107530-01-11 21:59:00 Test Item Value Reference Range Interpretation Comments WBC (test code = WBC) 7.6 3.7-10.4 [place] [address]-01-11 21:59:00 Test Item Value Reference Range Interpretation Comments RBC (test code = RBC) 4.45 4.20-5.40 [place] 107530-01-11 21:59:00 Test Item Value Reference Range Interpretation Comments Hgb (test code = Hgb) 13.6 12.0-16.0 [place] 107530-01-11 21:59:00 Test Item Value Reference Range Interpretation Comments Hct (test code = Hct) 40.3 36.0-48.0 [facility]VrfdzbtQTFLJFDGWM7336-21-32 21:59:00 Test Item Value Reference Range Interpretation Comments MCV (test code = MCV) 90.6 80.0-98.0 [facility] [id number] 21:59:00 Test Item Value Reference Range Interpretation Comments Creatinine Lvl (test code = Creatinine 0.79 0.50-1.40 Lvl) [facility] CampusVdtahuzUIEDVWXXWT2927-97-38 21:59:00 Test Item Value Reference Range Interpretation Comments MCH (test code = MCH) 30.5 pg 27.0-31.0 [facility] CampusVlnlrsrOFZTGAQVWM4433-99-18 21:59:00 Test Item Value Reference Range Interpretation Comments MCHC (test code = MCHC) 33.7 32.0-36.0 [facility]chjbDENDOVRJJQ9225-03-77 21:59:00 Test Item Value Reference Range Interpretation Comments RDW (test code = RDW) 12.9 11.5-14.5 [facility] CampusGdewxhlBTRRTEXCII8699-28-93 21:59:00 Test Item Value Reference Range Interpretation Comments Platelet (test code = Platelet) 192 133-450 [facility] CampusCbpxyqzYPVGLIWSGP8385-09-00 21:59:00 Test Item Value Reference Range Interpretation Comments MPV (test code = MPV) 9.6 7.4-10.4 [facility]QhqrfnvTYCPCEXECO4344-00-60 21:59:00 Test Item Value Reference Range Interpretation Comments PT (test code = PT) 13.7 s 12.0-14.7 [facility]VhbmzjmGCRCYFDYLT9866-75-35 21:59:00 Test Item Value Reference Range Interpretation Comments INR (test code = INR) 1.05 1 0.85-1.17 [facility] CampusKbvtrbnWMERQYNCAD6422-43-03 21:59:00 Test Item Value Reference Range Interpretation Comments Segs (test code = Segs) 67.6 45.0-75.0 [facility]VhpwylzRVOWMBOGAV0293-31-19 21:59:00 Test Item Value Reference Range Interpretation Comments Lymphocytes (test code = Lymphocytes) 23.6 20.0-40.0 [facility]TqrwmrbNIOTFPJYWR3515-79-76 21:59:00 Test Item Value Reference Range Interpretation Comments Monocytes (test code = Monocytes) 5.8 2.0-12.0 [facility]2020-01-11 21:59:00 Test Item Value Reference Range Interpretation Comments Sodium Lvl (test code = Sodium Lvl) 131 135-145 [facility]TxcazujDYFBLCDKTE9563-63-07 21:59:00 Test Item Value Reference Range Interpretation Comments Eosinophils (test code = 2.5 See_Comment [A utomated message] The Eosinophils) system which ge nerated this result tra nsmitted reference range : <=4.0. The reference r lily was not used to int erpret this result as normal/abnormal . [facility] PasoZhvzrnwOQSYTDVQFM2970-73-86 21:59:00 Test Item Value Reference Range Interpretation Comments Basophils (test code = 0.5 See_Comment [Aut omated message] The Basophils) system which ge nerated this result tra nsmitted reference range : <=1.0. The reference r lily was not used to int erpret this result as normal/abnormal . [facility] PasoWetdriaFGVKXBLLGK5509-99-37 21:59:00 Test Item Value Reference Range Interpretation Comments Neutrophils # (test code = Neutrophils 5.1 1.5-8.1 #) [facility] PasoVnmmftmEVTLRJTQER5211-26-89 21:59:00 Test Item Value Reference Range Interpretation Comments Lymphocytes # (test code = Lymphocytes 1.8 1.0-5.5 #) [facility] PasoJlrygqqQWRMQEQRVH2338-45-30 21:59:00 Test Item Value Reference Range Interpretation Comments Monocytes # (test code 0.4 See_Comment [Aut omated message] The = Monocytes #) system which generated this result tra nsmitted reference range : <=0.8. The reference r lily was not used to int erpret this result as normal/abnormal . [facility] PasoVhzicdhZYQOABBYFN9304-46-64 21:59:00 Test Item Value Reference Range Interpretation Comments Eosinophils # (test code 0.2 See_Comment [A utomated message] The = Eosinophils #) system whic h generated this result tra nsmitted reference range : <=0.5. The reference r lily was not used to int erpret this result as normal/abnormal . [facility]2020-01-11 21:59:00 Test Item Value Reference Range Interpretation Comments UA Color (test code = Yellow *NA*(04/09/19 UA Color) 3:59 PM) [facility] [id number] 21:59:00 Test Item Value Reference Range Interpretation Comments UA Turbidity (test code = Clear (04/09/19 3:59 UA Turbidity) PM) [facility] [id number] 21:59:00 Test Item Value Reference Range Interpretation Comments UA Spec Grav (test code = UA Spec 1.010 1 Grav) [facility] [id number] 21:59:00 Test Item Value Reference Range Interpretation Comments UA pH (test code = UA pH) 6.0 1 5.0-8.0 [facility] [id number] 21:59:00 Test Item Value Reference Range Interpretation Comments Potassium Lvl (test code = Potassium 3.4 3.5-5.1 Lvl) [facility] [id number] 21:59:00 Test Item Value Reference Range Interpretation Comments UA Protein (test code Negative (04/09/19 3:59 = UA Protein) PM) [facility] [id number] 21:59:00 Test Item Value Reference Range Interpretation Comments UA Glucose (test code Negative (04/09/19 3:59 = UA Glucose) PM) [facility] [id number] 21:59:00 Test Item Value Reference Range Interpretation Comments UA Ketones (test code Negative *NA*(04/09/19 = UA Ketones) 3:59 PM) [facility] [id number] 21:59:00 Test Item Value Reference Range Interpretation Comments UA Bili (test code = Negative *NA*(04/09/19 UA Bili) 3:59 PM) [facility] [id number] 21:59:00 Test Item Value Reference Range Interpretation Comments UA Blood (test code = Trace *ABN*(04/09/19 UA Blood) 3:59 PM) [facility] [id number] 21:59:00 Test Item Value Reference Range Interpretation Comments UA Urobilinogen (test code = UA 0.2 0.1-1.0 Urobilinogen) [facility] [id number] 21:59:00 Test Item Value Reference Range Interpretation Comments UA Nitrite (test code Negative (04/09/19 3:59 = UA Nitrite) PM) [facility] AND [id number] 21:59:00 Test Item Value Reference Range Interpretation Comments UA Leuk Est (test Negative (04/09/19 3:59 code = UA Leuk Est) PM) [facility] AND [id number] 21:59:00 Test Item Value Reference Range Interpretation Comments UA Sq Epi (test code = UA Sq Occasional /LPF Epi) [facility] AND [id number] 21:59:00 Test Item Value Reference Range Interpretation Comments UA WBC (test code = UA None Seen (04/09/19 3:59 WBC) PM) [facility] [id number] 21:59:00 Test Item Value Reference Range Interpretation Comments Chloride Lvl (test code = Chloride Lvl) 98 95-109 [facility] AND [id number] 21:59:00 Test Item Value Reference Range Interpretation Comments UA RBC (test code = 3-5 /HPF See_Comment [Automa shaun message] The UA RBC) system which ge nerated this result tra nsmitted reference range : <=2. The reference range was not used to interpr et this result as jackeline l/abnormal. [facility] AND [id number] 21:59:00 Test Item Value Reference Range Interpretation Comments UA Bacteria (test code = None Seen (04/09/19 UA Bacteria) 3:59 PM) [facility]2020-01-11 21:59:00 Test Item Value Reference Range Interpretation Comments CO2 (test code = CO2) 33 24-32 [facility]2020-01-11 21:59:00 Test Item Value Reference Range Interpretation Comments Calcium Lvl (test code = Calcium Lvl) 9.3 8.5-10.5 [facility]2020-01-11 21:59:00 Test Item Value Reference Range Interpretation Comments Total Protein (test code = Total 8.1 6.4-8.4 Protein) [facility]2020-01-11 21:59:00 Test Item Value Reference Range Interpretation Comments Albumin Lvl (test code = Albumin Lvl) 3.6 3.5-5.0 [facility]2020-01-11 21:59:00 Test Item Value Reference Range Interpretation Comments ALT (test code = ALT) 18 See_Comment [Auto mated message] The system which ge nerated this result transmit shaun reference range : <=65. The reference range was not used to interpr et this result as jackeline l/abnormal. [facility] fav.or.it [id number] 21:59:00 Test Item Value Reference Range Interpretation Comments AST (test code = AST) 21 See_Comment [Auto mated message] The system which ge nerated this result transmit shaun reference range : <=37. The reference range was not used to interpr et this result as jackeline l/abnormal. [facility] [id number] 21:59:00 Test Item Value Reference Range Interpretation Comments Alk Phos (test code = Alk Phos) 95 39-136 [facility] [id number] 21:59:00 Test Item Value Reference Range Interpretation Comments Bili Total (test code = Bili Total) 0.5 0.2-1.3 [facility] [id number] 21:59:00 Test Item Value Reference Range Interpretation Comments AGAP (test code = AGAP) 3.4 10.0-20.0 [facility] [id number] 21:59:00 Test Item Value Reference Range Interpretation Comments B/C Ratio (test code = B/C Ratio) 16 1 6-25 [facility] [id number] 21:59:00 Test Item Value Reference Range Interpretation Comments Globulin (test code = Globulin) 4.5 2.7-4.2 [facility] [id number] 21:59:00 Test Item Value Reference Range Interpretation Comments A/G Ratio (test code = A/G Ratio) 0.8 1 0.7-1.6 [facility] [id number] 21:59:00 Test Item Value Reference Range Interpretation Comments eGFR (test code = eGFR) 78 [facility] [id number] 21:59:00 Test Item Value Reference Range Interpretation Comments Lipase Lvl (test code = Lipase Lvl) 112 73-393 [facility] [id number] 21:59:00 Test Item Value Reference Range Interpretation Comments Magnesium Lvl (test code = Magnesium 1.6 1.8-2.4 Lvl) [facility] PasoRowwkyaLVWXIMYGUG7816-36-03 21:59:00 Test Item Value Reference Range Interpretation Comments WBC (test code = WBC) 7.6 3.7-10.4 [facility] PasoLkrgjvvSZCGVUVJYK5888-66-95 21:59:00 Test Item Value Reference Range Interpretation Comments RBC (test code = RBC) 4.45 4.20-5.40 [facility] PasoDtcxedjAXPSKPOFIL3361-96-74 21:59:00 Test Item Value Reference Range Interpretation Comments Hgb (test code = Hgb) 13.6 12.0-16.0 [facility] PasoJkcucsjUDPYEEIKCW7936-59-04 21:59:00 Test Item Value Reference Range Interpretation Comments Hct (test code = Hct) 40.3 36.0-48.0 [facility] PasoIjmcnwuSQSXENQJIX2844-52-42 21:59:00 Test Item Value Reference Range Interpretation Comments MCV (test code = MCV) 90.6 80.0-98.0 [facility] PasoOlfrblpCJULCYHOHB2361-83-02 21:59:00 Test Item Value Reference Range Interpretation Comments MCH (test code = MCH) 30.5 pg 27.0-31.0 [facility] PasoTqniqbnDCZPSVPCQM9270-88-28 21:59:00 Test Item Value Reference Range Interpretation Comments MCHC (test code = MCHC) 33.7 32.0-36.0 [id number] 21:59:00 Test Item Value Reference Range Interpretation Comments RDW (test code = RDW) 12.9 11.5-14.5 [facility] [id number] 21:59:00 Test Item Value Reference Range Interpretation Comments Total CK (test code = Total CK) 93 12-191 [facility] [id number] 21:59:00 Test Item Value Reference Range Interpretation Comments Troponin-I (test code 0.03 See_Comment [Auto mated message] The = Troponin-I) system which g enerated this result transmit shaun reference range : <=0.40. The reference r lily was not used to interpr et this result as jackeline l/abnormal. [facility] [id number] 21:59:00 Test Item Value Reference Range Interpretation Comments Glucose Lvl (test code = Glucose Lvl) 142 70-99 [facility] [id number] 21:59:00 Test Item Value Reference Range Interpretation Comments BUN (test code = BUN) 13 7-22 [place] 626920-01-11 21:59:00 Test Item Value Reference Range Interpretation Comments Creatinine Lvl (test code = Creatinine 0.79 0.50-1.40 Lvl) [facility] PasoWphepuiPTFDSPCOZI4197-79-98 21:59:00 Test Item Value Reference Range Interpretation Comments Platelet (test code = Platelet) 192 133-450 [place] 626920-01-11 21:59:00 Test Item Value Reference Range Interpretation Comments Sodium Lvl (test code = Sodium Lvl) 131 135-145 [place] 626920-01-11 21:59:00 Test Item Value Reference Range Interpretation Comments Potassium Lvl (test code = Potassium 3.4 3.5-5.1 Lvl) [place] 626920-01-11 21:59:00 Test Item Value Reference Range Interpretation Comments Chloride Lvl (test code = Chloride Lvl) 98 95-109 [place] 626920-01-11 21:59:00 Test Item Value Reference Range Interpretation Comments CO2 (test code = CO2) 33 24-32 [place] 626920-01-11 21:59:00 Test Item Value Reference Range Interpretation Comments Calcium Lvl (test code = Calcium Lvl) 9.3 8.5-10.5 [place] 626920-01-11 21:59:00 Test Item Value Reference Range Interpretation Comments Total Protein (test code = Total 8.1 6.4-8.4 Protein) [place] 626920-01-11 21:59:00 Test Item Value Reference Range Interpretation Comments Albumin Lvl (test code = Albumin Lvl) 3.6 3.5-5.0 [place] 626920-01-11 21:59:00 Test Item Value Reference Range Interpretation Comments ALT (test code = ALT) 18 See_Comment [Auto mated message] The system which ge nerated this result transmit shaun reference range : <=65. The reference range was not used to interpr et this result as jackeline l/abnormal. [place] 626920-01-11 21:59:00 Test Item Value Reference Range Interpretation Comments AST (test code = AST) 21 See_Comment [Auto mated message] The system which ge nerated this result transmit shaun reference range : <=37. The reference range was not used to interpr et this result as jackeline l/abnormal. [facility]2020-01-11 21:59:00 Test Item Value Reference Range Interpretation Comments Alk Phos (test code = Alk Phos) 95 39-136 [facility] PasoPfnzereSHPFEYJMNT9993-04-28 21:59:00 Test Item Value Reference Range Interpretation Comments MPV (test code = MPV) 9.6 7.4-10.4 [place] 626920-01-11 21:59:00 Test Item Value Reference Range Interpretation Comments Bili Total (test code = Bili Total) 0.5 0.2-1.3 [place] 626920-01-11 21:59:00 Test Item Value Reference Range Interpretation Comments AGAP (test code = AGAP) 3.4 10.0-20.0 [facility]2020-01-11 21:59:00 Test Item Value Reference Range Interpretation Comments B/C Ratio (test code = B/C Ratio) 16 1 6-25 [place] 626920-01-11 21:59:00 Test Item Value Reference Range Interpretation Comments Globulin (test code = Globulin) 4.5 2.7-4.2 [place] 626920-01-11 21:59:00 Test Item Value Reference Range Interpretation Comments A/G Ratio (test code = A/G Ratio) 0.8 1 0.7-1.6 [place] 626920-01-11 21:59:00 Test Item Value Reference Range Interpretation Comments eGFR (test code = eGFR) 78 [facility]2020-01-11 21:59:00 Test Item Value Reference Range Interpretation Comments Lipase Lvl (test code = Lipase Lvl) 112 73-393 [facility]2020-01-11 21:59:00 Test Item Value Reference Range Interpretation Comments Magnesium Lvl (test code = Magnesium 1.6 1.8-2.4 Lvl) [facility] PasoWchcrynMNXDQKEJCQ0415-54-82 21:59:00 Test Item Value Reference Range Interpretation Comments WBC (test code = WBC) 7.6 3.7-10.4 [place] 107530-01-11 21:59:00 Test Item Value Reference Range Interpretation Comments RBC (test code = RBC) 4.45 4.20-5.40 [facility] PasoIlskkzvBFCMRBQICY8218-58-93 21:59:00 Test Item Value Reference Range Interpretation Comments PT (test code = PT) 13.7 s 12.0-14.7 [facility] PasoMizduybPJOMYCXDTP5492-63-66 21:59:00 Test Item Value Reference Range Interpretation Comments Hgb (test code = Hgb) 13.6 12.0-16.0 [facility] PasoIdakrmaRPTALGHXFW5683-06-60 21:59:00 Test Item Value Reference Range Interpretation Comments Hct (test code = Hct) 40.3 36.0-48.0 [facility] PasoPwbhmltRFMZHQXLQA0300-34-60 21:59:00 Test Item Value Reference Range Interpretation Comments MCV (test code = MCV) 90.6 80.0-98.0 [facility] PasoDxoboyqYZDQANNVSV9833-46-78 21:59:00 Test Item Value Reference Range Interpretation Comments MCH (test code = MCH) 30.5 pg 27.0-31.0 [facility] PasoNbxktalOBFVBJFHNS5435-25-39 21:59:00 Test Item Value Reference Range Interpretation Comments MCHC (test code = MCHC) 33.7 32.0-36.0 [facility] PasoNxzqbbjPOHHYYUFHN1172-61-19 21:59:00 Test Item Value Reference Range Interpretation Comments RDW (test code = RDW) 12.9 11.5-14.5 [facility] PasoZfzcxymTSONQZZRVL0217-53-15 21:59:00 Test Item Value Reference Range Interpretation Comments Platelet (test code = Platelet) 192 133-450 [facility] PasoXajwjirBETYDRINAH9548-62-65 21:59:00 Test Item Value Reference Range Interpretation Comments MPV (test code = MPV) 9.6 7.4-10.4 [facility] PasoHclqcqcOVOLGHIGLZ4073-93-77 21:59:00 Test Item Value Reference Range Interpretation Comments PT (test code = PT) 13.7 s 12.0-14.7 [facility] PasoAhduelbIPVINWOIKE6930-73-61 21:59:00 Test Item Value Reference Range Interpretation Comments INR (test code = INR) 1.05 1 0.85-1.17 [facility] PasoRahgurqDZZMZFVBMC5712-17-43 21:59:00 Test Item Value Reference Range Interpretation Comments INR (test code = INR) 1.05 1 0.85-1.17 [place] 107530-01-11 21:59:00 Test Item Value Reference Range Interpretation Comments Segs (test code = Segs) 67.6 45.0-75.0 [place] 107530-01-11 21:59:00 Test Item Value Reference Range Interpretation Comments Lymphocytes (test code = Lymphocytes) 23.6 20.0-40.0 [place] 107530-01-11 21:59:00 Test Item Value Reference Range Interpretation Comments Monocytes (test code = Monocytes) 5.8 2.0-12.0 [place] 107530-01-11 21:59:00 Test Item Value Reference Range Interpretation Comments Eosinophils (test code = 2.5 See_Comment [A utomated message] The Eosinophils) system which ge nerated this result tra nsmitted reference range : <=4.0. The reference r lily was not used to int erpret this result as normal/abnormal . [place] 107530-01-11 21:59:00 Test Item Value Reference Range Interpretation Comments Basophils (test code = 0.5 See_Comment [Aut omated message] The Basophils) system which ge nerated this result tra nsmitted reference range : <=1.0. The reference r lily was not used to int erpret this result as normal/abnormal . [place] 107530-01-11 21:59:00 Test Item Value Reference Range Interpretation Comments Neutrophils # (test code = Neutrophils 5.1 1.5-8.1 #) [place] 107530-01-11 21:59:00 Test Item Value Reference Range Interpretation Comments Lymphocytes # (test code = Lymphocytes 1.8 1.0-5.5 #) [place] 107530-01-11 21:59:00 Test Item Value Reference Range Interpretation Comments Monocytes # (test code 0.4 See_Comment [Aut omated message] The = Monocytes #) system which generated this result tra nsmitted reference range : <=0.8. The reference r lily was not used to int erpret this result as normal/abnormal . [place] 107530-01-11 21:59:00 Test Item Value Reference Range Interpretation Comments Eosinophils # (test code 0.2 See_Comment [A utomated message] The = Eosinophils #) system whic h generated this result tra nsmitted reference range : <=0.5. The reference r lily was not used to int erpret this result as normal/abnormal . [facility] AND [id number] 21:59:00 Test Item Value Reference Range Interpretation Comments UA Color (test code = Yellow *NA*(04/09/19 UA Color) 3:59 PM) [facility] NrgouvwEEAPXEZYAL8912-79-65 21:59:00 Test Item Value Reference Range Interpretation Comments Segs (test code = Segs) 67.6 45.0-75.0 [facility] AND [id number] 21:59:00 Test Item Value Reference Range Interpretation Comments UA Turbidity (test code = Clear (04/09/19 3:59 UA Turbidity) PM) [facility] AND [id number] 21:59:00 Test Item Value Reference Range Interpretation Comments UA Spec Grav (test code = UA Spec 1.010 1 Grav) [facility] AND [id number] 21:59:00 Test Item Value Reference Range Interpretation Comments UA pH (test code = UA pH) 6.0 1 5.0-8.0 [facility] AND [id number] 21:59:00 Test Item Value Reference Range Interpretation Comments UA Protein (test code Negative (04/09/19 3:59 = UA Protein) PM) [facility] AND [id number] 21:59:00 Test Item Value Reference Range Interpretation Comments UA Glucose (test code Negative (04/09/19 3:59 = UA Glucose) PM) [facility] AND [id number] 21:59:00 Test Item Value Reference Range Interpretation Comments UA Ketones (test code Negative *NA*(04/09/19 = UA Ketones) 3:59 PM) [facility] AND [id number] 21:59:00 Test Item Value Reference Range Interpretation Comments UA Bili (test code = Negative *NA*(04/09/19 UA Bili) 3:59 PM) [facility] AND [id number] 21:59:00 Test Item Value Reference Range Interpretation Comments UA Blood (test code = Trace *ABN*(04/09/19 UA Blood) 3:59 PM) [facility] AND [id number] 21:59:00 Test Item Value Reference Range Interpretation Comments UA Urobilinogen (test code = UA 0.2 0.1-1.0 Urobilinogen) [facility] AND [id number] 21:59:00 Test Item Value Reference Range Interpretation Comments UA Nitrite (test code Negative (04/09/19 3:59 = UA Nitrite) PM) [facility] PasoKeiwuuoWHMUMWZETW6739-61-51 21:59:00 Test Item Value Reference Range Interpretation Comments Lymphocytes (test code = Lymphocytes) 23.6 20.0-40.0 [facility] AND [id number] 21:59:00 Test Item Value Reference Range Interpretation Comments UA Leuk Est (test Negative (04/09/19 3:59 code = UA Leuk Est) PM) [facility] AND [id number] 21:59:00 Test Item Value Reference Range Interpretation Comments UA Sq Epi (test code = UA Sq Occasional /LPF Epi) [facility] AND [id number] 21:59:00 Test Item Value Reference Range Interpretation Comments UA WBC (test code = UA None Seen (04/09/19 3:59 WBC) PM) [facility] AND [id number] 21:59:00 Test Item Value Reference Range Interpretation Comments UA RBC (test code = 3-5 /HPF See_Comment [Automa shaun message] The UA RBC) system which ge nerated this result tra nsmitted reference range : <=2. The reference range was not used to interpr et this result as jackeline l/abnormal. [facility] AND [id number] 21:59:00 Test Item Value Reference Range Interpretation Comments UA Bacteria (test code = None Seen (04/09/19 UA Bacteria) 3:59 PM) [facility] PasoAufbbezBSINNNOPAU0332-12-55 21:59:00 Test Item Value Reference Range Interpretation Comments Monocytes (test code = Monocytes) 5.8 2.0-12.0 [facility] PasoXpjdjxrZUAHUOLOZG9224-55-80 21:59:00 Test Item Value Reference Range Interpretation Comments Eosinophils (test code = 2.5 See_Comment [A utomated message] The Eosinophils) system which ge nerated this result tra nsmitted reference range : <=4.0. The reference r lily was not used to int erpret this result as normal/abnormal . [id number] 21:59:00 Test Item Value Reference Range Interpretation Comments Basophils (test code = 0.5 See_Comment [Aut omated message] The Basophils) system which ge nerated this result tra nsmitted reference range : <=1.0. The reference r lily was not used to int erpret this result as normal/abnormal . [facility]oSpyyhhlHNPLKTEUBO3905-39-10 21:59:00 Test Item Value Reference Range Interpretation Comments Neutrophils # (test code = Neutrophils 5.1 1.5-8.1 #) [facility] PasoQdojftbFNGNXPWOOY4370-31-57 21:59:00 Test Item Value Reference Range Interpretation Comments Lymphocytes # (test code = Lymphocytes 1.8 1.0-5.5 #) [facility] PasoCkoodnfLRHXRHYIQE0622-65-12 21:59:00 Test Item Value Reference Range Interpretation Comments Monocytes # (test code 0.4 See_Comment [Aut omated message] The = Monocytes #) system which generated this result tra nsmitted reference range : <=0.8. The reference r lily was not used to int erpret this result as normal/abnormal . [facility]oLrlijswUCDFPNLMPP6039-42-70 21:59:00 Test Item Value Reference Range Interpretation Comments Eosinophils # (test code 0.2 See_Comment [A utomated message] The = Eosinophils #) system whic h generated this result tra nsmitted reference range : <=0.5. The reference r lily was not used to int erpret this result as normal/abnormal . [facility] AND [id number] 21:59:00 Test Item Value Reference Range Interpretation Comments UA Color (test code = Yellow *NA*(04/09/19 UA Color) 3:59 PM) [facility] AND [id number] 21:59:00 Test Item Value Reference Range Interpretation Comments UA Turbidity (test code = Clear (04/09/19 3:59 UA Turbidity) PM) [facility] AND [id number] 21:59:00 Test Item Value Reference Range Interpretation Comments UA Spec Grav (test code = UA Spec 1.010 1 Grav) [facility] AND [id number] 21:59:00 Test Item Value Reference Range Interpretation Comments UA pH (test code = UA pH) 6.0 1 5.0-8.0 [facility] [id number] 21:59:00 Test Item Value Reference Range Interpretation Comments UA Protein (test code Negative (04/09/19 3:59 = UA Protein) PM) [facility] [id number] 21:59:00 Test Item Value Reference Range Interpretation Comments UA Glucose (test code Negative (04/09/19 3:59 = UA Glucose) PM) [facility] [id number] 21:59:00 Test Item Value Reference Range Interpretation Comments UA Ketones (test code Negative *NA*(04/09/19 = UA Ketones) 3:59 PM) [facility] [id number] 21:59:00 Test Item Value Reference Range Interpretation Comments UA Bili (test code = Negative *NA*(04/09/19 UA Bili) 3:59 PM) [facility] AND [id number] 21:59:00 Test Item Value Reference Range Interpretation Comments UA Blood (test code = Trace *ABN*(04/09/19 UA Blood) 3:59 PM) [facility] AND [id number] 21:59:00 Test Item Value Reference Range Interpretation Comments UA Urobilinogen (test code = UA 0.2 0.1-1.0 Urobilinogen) [facility] AND [id number] 21:59:00 Test Item Value Reference Range Interpretation Comments UA Nitrite (test code Negative (04/09/19 3:59 = UA Nitrite) PM) [facility] AND [id number] 21:59:00 Test Item Value Reference Range Interpretation Comments UA Leuk Est (test Negative (04/09/19 3:59 code = UA Leuk Est) PM) [facility] [id number] 21:59:00 Test Item Value Reference Range Interpretation Comments UA Sq Epi (test code = UA Sq Occasional /LPF Epi) [facility] [id number] 21:59:00 Test Item Value Reference Range Interpretation Comments UA WBC (test code = UA None Seen (04/09/19 3:59 WBC) PM) [facility] AND [id number] 21:59:00 Test Item Value Reference Range Interpretation Comments UA RBC (test code = 3-5 /HPF See_Comment [Automa shaun message] The UA RBC) system which ge nerated this result tra nsmitted reference range : <=2. The reference range was not used to interpr et this result as jackeline l/abnormal. [facility] AND [id number] 21:59:00 Test Item Value Reference Range Interpretation Comments UA Bacteria (test code = None Seen (04/09/19 UA Bacteria) 3:59 PM) [facility]ownannCARDIAC [id number] 21:59:00 Test Item Value Reference Range Interpretation Comments Total CK (test code = Total CK) 93 12-191 [facility] [id number] 21:59:00 Test Item Value Reference Range Interpretation Comments Troponin-I (test code 0.03 See_Comment [Auto mated message] The = Troponin-I) system which g enerated this result transmit shaun reference range : <=0.40. The reference r lily was not used to interpr et this result as jackeline l/abnormal. [facility] fav[facility]or[facility]it [id number] 21:59:00 Test Item Value Reference Range Interpretation Comments Glucose Lvl (test code = Glucose Lvl) 142 70-99 [facility] fav[facility]or[facility]it [id number] 21:59:00 Test Item Value Reference Range Interpretation Comments BUN (test code = BUN) 13 7-22 [facility] [id number] 21:59:00 Test Item Value Reference Range Interpretation Comments Creatinine Lvl (test code = Creatinine 0.79 0.50-1.40 Lvl) [facility] [id number] 21:59:00 Test Item Value Reference Range Interpretation Comments Sodium Lvl (test code = Sodium Lvl) 131 135-145 [facility] [id number] 21:59:00 Test Item Value Reference Range Interpretation Comments Potassium Lvl (test code = Potassium 3.4 3.5-5.1 Lvl) [facility] [id number] 21:59:00 Test Item Value Reference Range Interpretation Comments Chloride Lvl (test code = Chloride Lvl) 98 95-109 [facility] [id number] 21:59:00 Test Item Value Reference Range Interpretation Comments CO2 (test code = CO2) 33 24-32 [facility]it [id number] 21:59:00 Test Item Value Reference Range Interpretation Comments Calcium Lvl (test code = Calcium Lvl) 9.3 8.5-10.5 [facility] [id number] 21:59:00 Test Item Value Reference Range Interpretation Comments Total Protein (test code = Total 8.1 6.4-8.4 Protein) [facility] [id number] 21:59:00 Test Item Value Reference Range Interpretation Comments Albumin Lvl (test code = Albumin Lvl) 3.6 3.5-5.0 [facility] [id number] 21:59:00 Test Item Value Reference Range Interpretation Comments ALT (test code = ALT) 18 See_Comment [Auto mated message] The system which ge nerated this result transmit shaun reference range : <=65. The reference range was not used to interpr et this result as jackeline l/abnormal. [facility] [id number] 21:59:00 Test Item Value Reference Range Interpretation Comments AST (test code = AST) 21 See_Comment [Auto mated message] The system which ge nerated this result transmit shaun reference range : <=37. The reference range was not used to interpr et this result as jackeline l/abnormal. [facility] [id number] 21:59:00 Test Item Value Reference Range Interpretation Comments Alk Phos (test code = Alk Phos) 95 39-136 [facility] [id number] 21:59:00 Test Item Value Reference Range Interpretation Comments Bili Total (test code = Bili Total) 0.5 0.2-1.3 [facility] [id number] 21:59:00 Test Item Value Reference Range Interpretation Comments AGAP (test code = AGAP) 3.4 10.0-20.0 [facility] [id number] 21:59:00 Test Item Value Reference Range Interpretation Comments B/C Ratio (test code = B/C Ratio) 16 1 6-25 [facility] [id number] 21:59:00 Test Item Value Reference Range Interpretation Comments Globulin (test code = Globulin) 4.5 2.7-4.2 [facility] fav[facility]it [id number] 21:59:00 Test Item Value Reference Range Interpretation Comments A/G Ratio (test code = A/G Ratio) 0.8 1 0.7-1.6 [place] [address]-01-11 21:59:00 Test Item Value Reference Range Interpretation Comments eGFR (test code = eGFR) 78 [place] [id number] 21:59:00 Test Item Value Reference Range Interpretation Comments Lipase Lvl (test code = Lipase Lvl) 112 73-393 [place] 626920-01-11 21:59:00 Test Item Value Reference Range Interpretation Comments Magnesium Lvl (test code = Magnesium 1.6 1.8-2.4 Lvl) [place] [address]-01-11 21:59:00 Test Item Value Reference Range Interpretation Comments WBC (test code = WBC) 7.6 3.7-10.4 [place] 107530-01-11 21:59:00 Test Item Value Reference Range Interpretation Comments RBC (test code = RBC) 4.45 4.20-5.40 [place] [address]-01-11 21:59:00 Test Item Value Reference Range Interpretation Comments Hgb (test code = Hgb) 13.6 12.0-16.0 [place] [address]-01-11 21:59:00 Test Item Value Reference Range Interpretation Comments Hct (test code = Hct) 40.3 36.0-48.0 [place] [address]-01-11 21:59:00 Test Item Value Reference Range Interpretation Comments MCV (test code = MCV) 90.6 80.0-98.0 [place] [address]-01-11 21:59:00 Test Item Value Reference Range Interpretation Comments MCH (test code = MCH) 30.5 pg 27.0-31.0 [place] [address]-01-11 21:59:00 Test Item Value Reference Range Interpretation Comments MCHC (test code = MCHC) 33.7 32.0-36.0 [place] 107530-01-11 21:59:00 Test Item Value Reference Range Interpretation Comments RDW (test code = RDW) 12.9 11.5-14.5 [place] [address]-01-11 21:59:00 Test Item Value Reference Range Interpretation Comments Platelet (test code = Platelet) 192 133-450 [facility] [id number] 21:59:00 Test Item Value Reference Range Interpretation Comments MPV (test code = MPV) 9.6 7.4-10.4 [facility] PasoNaqbtzmRXIQDRKGDO6164-73-46 21:59:00 Test Item Value Reference Range Interpretation Comments PT (test code = PT) 13.7 s 12.0-14.7 [facility] Pa[id number] 21:59:00 Test Item Value Reference Range Interpretation Comments INR (test code = INR) 1.05 1 0.85-1.17 [facility] PasoJticrsbSKQISDULBY0413-86-47 21:59:00 Test Item Value Reference Range Interpretation Comments Segs (test code = Segs) 67.6 45.0-75.0 [facility] PasoLlzyxvhLNQQZHROQY7084-39-92 21:59:00 Test Item Value Reference Range Interpretation Comments Lymphocytes (test code = Lymphocytes) 23.6 20.0-40.0 [facility] [id number] 21:59:00 Test Item Value Reference Range Interpretation Comments Monocytes (test code = Monocytes) 5.8 2.0-12.0 [facility] [id number] 21:59:00 Test Item Value Reference Range Interpretation Comments Eosinophils (test code = 2.5 See_Comment [A utomated message] The Eosinophils) system which ge nerated this result tra nsmitted reference range : <=4.0. The reference r lily was not used to int erpret this result as normal/abnormal . [facility] PasoTxlgduqDSZIQLXFEO6079-26-02 21:59:00 Test Item Value Reference Range Interpretation Comments Basophils (test code = 0.5 See_Comment [Aut omated message] The Basophils) system which ge nerated this result tra nsmitted reference range : <=1.0. The reference r lily was not used to int erpret this result as normal/abnormal . [facility] PasoPztrsrhPSYFNVHSFS2265-46-01 21:59:00 Test Item Value Reference Range Interpretation Comments Neutrophils # (test code = Neutrophils 5.1 1.5-8.1 #) [facility] PasoIjlblohOITJWHCGFR5034-64-02 21:59:00 Test Item Value Reference Range Interpretation Comments Lymphocytes # (test code = Lymphocytes 1.8 1.0-5.5 #) [id number] 21:59:00 Test Item Value Reference Range Interpretation Comments Monocytes # (test code 0.4 See_Comment [Aut omated message] The = Monocytes #) system which generated this result tra nsmitted reference range : <=0.8. The reference r lily was not used to int erpret this result as normal/abnormal . [facility] PasoUuixyfoDWPNIFZRAW0701-78-94 21:59:00 Test Item Value Reference Range Interpretation Comments Eosinophils # (test code 0.2 See_Comment [A utomated message] The = Eosinophils #) system whic h generated this result tra nsmitted reference range : <=0.5. The reference r lily was not used to int erpret this result as normal/abnormal . [facility] AND [id number] 21:59:00 Test Item Value Reference Range Interpretation Comments UA Color (test code = Yellow *NA*(04/09/19 UA Color) 3:59 PM) [facility] AND [id number] 21:59:00 Test Item Value Reference Range Interpretation Comments UA Turbidity (test code = Clear (04/09/19 3:59 UA Turbidity) PM) [facility] AND [id number] 21:59:00 Test Item Value Reference Range Interpretation Comments UA Spec Grav (test code = UA Spec 1.010 1 Grav) [facility] AND [id number] 21:59:00 Test Item Value Reference Range Interpretation Comments UA pH (test code = UA pH) 6.0 1 5.0-8.0 [facility] AND [id number] 21:59:00 Test Item Value Reference Range Interpretation Comments UA Protein (test code Negative (04/09/19 3:59 = UA Protein) PM) [facility] AND [id number] 21:59:00 Test Item Value Reference Range Interpretation Comments UA Glucose (test code Negative (04/09/19 3:59 = UA Glucose) PM) [facility] AND [id number] 21:59:00 Test Item Value Reference Range Interpretation Comments UA Ketones (test code Negative *NA*(04/09/19 = UA Ketones) 3:59 PM) [facility] AND [id number] 21:59:00 Test Item Value Reference Range Interpretation Comments UA Bili (test code = Negative *NA*(04/09/19 UA Bili) 3:59 PM) [facility] [id number] 21:59:00 Test Item Value Reference Range Interpretation Comments UA Blood (test code = Trace *ABN*(04/09/19 UA Blood) 3:59 PM) [facility] [id number] 21:59:00 Test Item Value Reference Range Interpretation Comments UA Urobilinogen (test code = UA 0.2 0.1-1.0 Urobilinogen) [facility] [id number] 21:59:00 Test Item Value Reference Range Interpretation Comments UA Nitrite (test code Negative (04/09/19 3:59 = UA Nitrite) PM) [facility] [id number] 21:59:00 Test Item Value Reference Range Interpretation Comments UA Leuk Est (test Negative (04/09/19 3:59 code = UA Leuk Est) PM) [facility] [id number] 21:59:00 Test Item Value Reference Range Interpretation Comments UA Sq Epi (test code = UA Sq Occasional /LPF Epi) [facility] [id number] 21:59:00 Test Item Value Reference Range Interpretation Comments UA WBC (test code = UA None Seen (04/09/19 3:59 WBC) PM) [facility] [id number] 21:59:00 Test Item Value Reference Range Interpretation Comments UA RBC (test code = 3-5 /HPF See_Comment [Automa shaun message] The UA RBC) system which ge nerated this result tra nsmitted reference range : <=2. The reference range was not used to interpr et this result as jackeline l/abnormal. [facility] [id number] 21:59:00 Test Item Value Reference Range Interpretation Comments UA Bacteria (test code = None Seen (04/09/19 UA Bacteria) 3:59 PM) [facility] [id number] 21:59:00 Test Item Value Reference Range Interpretation Comments Total CK (test code = Total CK) 93 12-191 [facility] [id number] 21:59:00 Test Item Value Reference Range Interpretation Comments Troponin-I (test code 0.03 See_Comment [Auto mated message] The = Troponin-I) system which g enerated this result transmit shaun reference range : <=0.40. The reference r lily was not used to interpr et this result as jackeline l/abnormal. [facility] [id number] 21:59:00 Test Item Value Reference Range Interpretation Comments Glucose Lvl (test code = Glucose Lvl) 142 70-99 [facility] [id number] 21:59:00 Test Item Value Reference Range Interpretation Comments BUN (test code = BUN) 13 7-22 [facility]2020-01-11 21:59:00 Test Item Value Reference Range Interpretation Comments Creatinine Lvl (test code = Creatinine 0.79 0.50-1.40 Lvl) [facility]2020-01-11 21:59:00 Test Item Value Reference Range Interpretation Comments Sodium Lvl (test code = Sodium Lvl) 131 135-145 [facility] [id number] 21:59:00 Test Item Value Reference Range Interpretation Comments Potassium Lvl (test code = Potassium 3.4 3.5-5.1 Lvl) [facility] [id number] 21:59:00 Test Item Value Reference Range Interpretation Comments Chloride Lvl (test code = Chloride Lvl) 98 95-109 [facility] [id number] 21:59:00 Test Item Value Reference Range Interpretation Comments CO2 (test code = CO2) 33 24-32 [facility] [id number] 21:59:00 Test Item Value Reference Range Interpretation Comments Calcium Lvl (test code = Calcium Lvl) 9.3 8.5-10.5 [facility] [id number] 21:59:00 Test Item Value Reference Range Interpretation Comments Total Protein (test code = Total 8.1 6.4-8.4 Protein) [facility]2020-01-11 21:59:00 Test Item Value Reference Range Interpretation Comments Albumin Lvl (test code = Albumin Lvl) 3.6 3.5-5.0 [facility] [id number] 21:59:00 Test Item Value Reference Range Interpretation Comments ALT (test code = ALT) 18 See_Comment [Auto mated message] The system which ge nerated this result transmit shaun reference range : <=65. The reference range was not used to interpr et this result as jackeline l/abnormal. [facility] [id number] 21:59:00 Test Item Value Reference Range Interpretation Comments AST (test code = AST) 21 See_Comment [Auto mated message] The system which ge nerated this result transmit shaun reference range : <=37. The reference range was not used to interpr et this result as jackeline l/abnormal. [facility] [id number] 21:59:00 Test Item Value Reference Range Interpretation Comments Alk Phos (test code = Alk Phos) 95 39-136 [facility] [id number] 21:59:00 Test Item Value Reference Range Interpretation Comments Bili Total (test code = Bili Total) 0.5 0.2-1.3 [facility] [id number] 21:59:00 Test Item Value Reference Range Interpretation Comments AGAP (test code = AGAP) 3.4 10.0-20.0 [facility] [id number] 21:59:00 Test Item Value Reference Range Interpretation Comments B/C Ratio (test code = B/C Ratio) 16 1 6-25 [facility] [id number] 21:59:00 Test Item Value Reference Range Interpretation Comments Globulin (test code = Globulin) 4.5 2.7-4.2 [facility] [id number] 21:59:00 Test Item Value Reference Range Interpretation Comments A/G Ratio (test code = A/G Ratio) 0.8 1 0.7-1.6 [facility] [id number] 21:59:00 Test Item Value Reference Range Interpretation Comments eGFR (test code = eGFR) 78 [facility] [id number] 21:59:00 Test Item Value Reference Range Interpretation Comments Lipase Lvl (test code = Lipase Lvl) 112 73-393 [facility] [id number] 21:59:00 Test Item Value Reference Range Interpretation Comments Magnesium Lvl (test code = Magnesium 1.6 1.8-2.4 Lvl) [facility] CampusFtzyhnlTFCGGMCGZG4827-07-62 21:59:00 Test Item Value Reference Range Interpretation Comments WBC (test code = WBC) 7.6 3.7-10.4 [facility] PasoDfrxavkYXSWOLXXQB9380-00-25 21:59:00 Test Item Value Reference Range Interpretation Comments RBC (test code = RBC) 4.45 4.20-5.40 [facility] PasoPqwyxjyOAULJKOKBM7374-29-81 21:59:00 Test Item Value Reference Range Interpretation Comments Hgb (test code = Hgb) 13.6 12.0-16.0 [facility] PasoCnkfbugIDTHFNLBIY1529-84-27 21:59:00 Test Item Value Reference Range Interpretation Comments Hct (test code = Hct) 40.3 36.0-48.0 [facility] PasoFppffhwMULYXSRLNY2888-04-88 21:59:00 Test Item Value Reference Range Interpretation Comments MCV (test code = MCV) 90.6 80.0-98.0 [facility] PasoZplurvmHNWOCYNLTD0362-90-04 21:59:00 Test Item Value Reference Range Interpretation Comments MCH (test code = MCH) 30.5 pg 27.0-31.0 [facility] PasoFcfjanqEPIMQBQSUC6590-15-34 21:59:00 Test Item Value Reference Range Interpretation Comments MCHC (test code = MCHC) 33.7 32.0-36.0 [facility] PasoBzyidroPDWVBIJSAJ3000-09-19 21:59:00 Test Item Value Reference Range Interpretation Comments RDW (test code = RDW) 12.9 11.5-14.5 [facility] PasoBcrnmxeETPPDNGNXA0917-16-71 21:59:00 Test Item Value Reference Range Interpretation Comments Platelet (test code = Platelet) 192 133-450 [facility] PasoRvdqbbjTFEPLQHKSH7048-85-97 21:59:00 Test Item Value Reference Range Interpretation Comments MPV (test code = MPV) 9.6 7.4-10.4 [facility] PasoYrqmelaCGNUKUBRQD5474-67-54 21:59:00 Test Item Value Reference Range Interpretation Comments PT (test code = PT) 13.7 s 12.0-14.7 [facility] [id number] 21:59:00 Test Item Value Reference Range Interpretation Comments INR (test code = INR) 1.05 1 0.85-1.17 [facility] PasoFssdrylVMJCYQIJMQ5968-64-90 21:59:00 Test Item Value Reference Range Interpretation Comments Segs (test code = Segs) 67.6 45.0-75.0 [facility] PasoJrfxazeXGHKUTJARC7493-70-57 21:59:00 Test Item Value Reference Range Interpretation Comments Lymphocytes (test code = Lymphocytes) 23.6 20.0-40.0 [facility] PasoTyyrtazAWIDPFVXPZ2314-02-76 21:59:00 Test Item Value Reference Range Interpretation Comments Monocytes (test code = Monocytes) 5.8 2.0-12.0 [facility] PasoXmspeplLMJCXEFOTW6883-89-27 21:59:00 Test Item Value Reference Range Interpretation Comments Eosinophils (test code = 2.5 See_Comment [A utomated message] The Eosinophils) system which ge nerated this result tra nsmitted reference range : <=4.0. The reference r lily was not used to int erpret this result as normal/abnormal . [facility] PasoKcveltcUULCWEWYSV3240-07-41 21:59:00 Test Item Value Reference Range Interpretation Comments Basophils (test code = 0.5 See_Comment [Aut omated message] The Basophils) system which ge nerated this result tra nsmitted reference range : <=1.0. The reference r lily was not used to int erpret this result as normal/abnormal . [facility] PasoZwbadwxTKZMWWVWXG0552-54-53 21:59:00 Test Item Value Reference Range Interpretation Comments Neutrophils # (test code = Neutrophils 5.1 1.5-8.1 #) [id number] 21:59:00 Test Item Value Reference Range Interpretation Comments Lymphocytes # (test code = Lymphocytes 1.8 1.0-5.5 #) [facility] Pa[id number] 21:59:00 Test Item Value Reference Range Interpretation Comments Monocytes # (test code 0.4 See_Comment [Aut omated message] The = Monocytes #) system which generated this result tra nsmitted reference range : <=0.8. The reference r lily was not used to int erpret this result as normal/abnormal . [facility] PasoNytwptaBECKOPIQJV4520-24-07 21:59:00 Test Item Value Reference Range Interpretation Comments Eosinophils # (test code 0.2 See_Comment [A utomated message] The = Eosinophils #) system whic h generated this result tra nsmitted reference range : <=0.5. The reference r lily was not used to int erpret this result as normal/abnormal . [facility] AND [id number] 21:59:00 Test Item Value Reference Range Interpretation Comments UA Color (test code = Yellow *NA*(04/09/19 UA Color) 3:59 PM) [facility] AND [id number] 21:59:00 Test Item Value Reference Range Interpretation Comments UA Turbidity (test code = Clear (04/09/19 3:59 UA Turbidity) PM) [facility] AND [id number] 21:59:00 Test Item Value Reference Range Interpretation Comments UA Spec Grav (test code = UA Spec 1.010 1 Grav) [facility] AND [id number] 21:59:00 Test Item Value Reference Range Interpretation Comments UA pH (test code = UA pH) 6.0 1 5.0-8.0 [facility] AND [id number] 21:59:00 Test Item Value Reference Range Interpretation Comments UA Protein (test code Negative (04/09/19 3:59 = UA Protein) PM) [facility] AND [id number] 21:59:00 Test Item Value Reference Range Interpretation Comments UA Glucose (test code Negative (04/09/19 3:59 = UA Glucose) PM) [facility] AND [id number] 21:59:00 Test Item Value Reference Range Interpretation Comments UA Ketones (test code Negative *NA*(04/09/19 = UA Ketones) 3:59 PM) [facility] AND [id number] 21:59:00 Test Item Value Reference Range Interpretation Comments UA Bili (test code = Negative *NA*(04/09/19 UA Bili) 3:59 PM) [facility] AND [id number] 21:59:00 Test Item Value Reference Range Interpretation Comments UA Blood (test code = Trace *ABN*(04/09/19 UA Blood) 3:59 PM) [facility] AND [id number] 21:59:00 Test Item Value Reference Range Interpretation Comments UA Urobilinogen (test code = UA 0.2 0.1-1.0 Urobilinogen) [facility] AND [id number] 21:59:00 Test Item Value Reference Range Interpretation Comments UA Nitrite (test code Negative (04/09/19 3:59 = UA Nitrite) PM) [facility] [id number] 21:59:00 Test Item Value Reference Range Interpretation Comments UA Leuk Est (test Negative (04/09/19 3:59 code = UA Leuk Est) PM) [facility] [id number] 21:59:00 Test Item Value Reference Range Interpretation Comments UA Sq Epi (test code = UA Sq Occasional /LPF Epi) [facility] AND [id number] 21:59:00 Test Item Value Reference Range Interpretation Comments UA WBC (test code = UA None Seen (04/09/19 3:59 WBC) PM) [facility] [id number] 21:59:00 Test Item Value Reference Range Interpretation Comments UA RBC (test code = 3-5 /HPF See_Comment [Automa shaun message] The UA RBC) system which ge nerated this result tra nsmitted reference range : <=2. The reference range was not used to interpr et this result as jackeline l/abnormal. [facility] AND [id number] 21:59:00 Test Item Value Reference Range Interpretation Comments UA Bacteria (test code = None Seen (04/09/19 UA Bacteria) 3:59 PM) [facility] [id number] 21:59:00 Test Item Value Reference Range Interpretation Comments Total CK (test code = Total CK) 93 12-191 [facility] [id number] 21:59:00 Test Item Value Reference Range Interpretation Comments Troponin-I (test code 0.03 See_Comment [Auto mated message] The = Troponin-I) system which g enerated this result transmit shaun reference range : <=0.40. The reference r lily was not used to interpr et this result as jackeline l/abnormal. [facility] fav.or.it [id number] 21:59:00 Test Item Value Reference Range Interpretation Comments Glucose Lvl (test code = Glucose Lvl) 142 70-99 [facility] fav.or.it [id number] 21:59:00 Test Item Value Reference Range Interpretation Comments BUN (test code = BUN) 13 7-22 [facility] [id number] 21:59:00 Test Item Value Reference Range Interpretation Comments Creatinine Lvl (test code = Creatinine 0.79 0.50-1.40 Lvl) [place] 626920-01-11 21:59:00 Test Item Value Reference Range Interpretation Comments Sodium Lvl (test code = Sodium Lvl) 131 135-145 [place] 626920-01-11 21:59:00 Test Item Value Reference Range Interpretation Comments Potassium Lvl (test code = Potassium 3.4 3.5-5.1 Lvl) [place] 626920-01-11 21:59:00 Test Item Value Reference Range Interpretation Comments Chloride Lvl (test code = Chloride Lvl) 98 95-109 [place] 626920-01-11 21:59:00 Test Item Value Reference Range Interpretation Comments CO2 (test code = CO2) 33 24-32 [place] 626920-01-11 21:59:00 Test Item Value Reference Range Interpretation Comments Calcium Lvl (test code = Calcium Lvl) 9.3 8.5-10.5 [place] 626920-01-11 21:59:00 Test Item Value Reference Range Interpretation Comments Total Protein (test code = Total 8.1 6.4-8.4 Protein) [place] 626920-01-11 21:59:00 Test Item Value Reference Range Interpretation Comments Albumin Lvl (test code = Albumin Lvl) 3.6 3.5-5.0 [place] 626920-01-11 21:59:00 Test Item Value Reference Range Interpretation Comments ALT (test code = ALT) 18 See_Comment [Auto mated message] The system which ge nerated this result transmit shaun reference range : <=65. The reference range was not used to interpr et this result as jackeline l/abnormal. [place] 626920-01-11 21:59:00 Test Item Value Reference Range Interpretation Comments AST (test code = AST) 21 See_Comment [Auto mated message] The system which ge nerated this result transmit shaun reference range : <=37. The reference range was not used to interpr et this result as jackeline l/abnormal. [place] 626920-01-11 21:59:00 Test Item Value Reference Range Interpretation Comments Alk Phos (test code = Alk Phos) 95 39-136 [place] 626920-01-11 21:59:00 Test Item Value Reference Range Interpretation Comments Bili Total (test code = Bili Total) 0.5 0.2-1.3 [place] 626920-01-11 21:59:00 Test Item Value Reference Range Interpretation Comments AGAP (test code = AGAP) 3.4 10.0-20.0 [place] 626920-01-11 21:59:00 Test Item Value Reference Range Interpretation Comments B/C Ratio (test code = B/C Ratio) 16 1 6-25 [place] [address]-01-11 21:59:00 Test Item Value Reference Range Interpretation Comments Globulin (test code = Globulin) 4.5 2.7-4.2 [place] 626920-01-11 21:59:00 Test Item Value Reference Range Interpretation Comments A/G Ratio (test code = A/G Ratio) 0.8 1 0.7-1.6 [place] [address]-01-11 21:59:00 Test Item Value Reference Range Interpretation Comments eGFR (test code = eGFR) 78 [place] 626920-01-11 21:59:00 Test Item Value Reference Range Interpretation Comments Lipase Lvl (test code = Lipase Lvl) 112 73-393 [place] 626920-01-11 21:59:00 Test Item Value Reference Range Interpretation Comments Magnesium Lvl (test code = Magnesium 1.6 1.8-2.4 Lvl) [place] 107530-01-11 21:59:00 Test Item Value Reference Range Interpretation Comments WBC (test code = WBC) 7.6 3.7-10.4 [place] 107530-01-11 21:59:00 Test Item Value Reference Range Interpretation Comments RBC (test code = RBC) 4.45 4.20-5.40 [place] [address]-01-11 21:59:00 Test Item Value Reference Range Interpretation Comments Hgb (test code = Hgb) 13.6 12.0-16.0 [place] [address]-01-11 21:59:00 Test Item Value Reference Range Interpretation Comments Hct (test code = Hct) 40.3 36.0-48.0 [place] 107530-01-11 21:59:00 Test Item Value Reference Range Interpretation Comments MCV (test code = MCV) 90.6 80.0-98.0 [facility] PasoEikmnxoCTUPABKNSJ8098-06-60 21:59:00 Test Item Value Reference Range Interpretation Comments MCH (test code = MCH) 30.5 pg 27.0-31.0 [facility] PasoTyaerfeOPXWPTVIDF0927-93-23 21:59:00 Test Item Value Reference Range Interpretation Comments MCHC (test code = MCHC) 33.7 32.0-36.0 [facility] PasoEynlkltIZTOPXXILO0161-78-94 21:59:00 Test Item Value Reference Range Interpretation Comments RDW (test code = RDW) 12.9 11.5-14.5 [place] 107530-01-11 21:59:00 Test Item Value Reference Range Interpretation Comments Platelet (test code = Platelet) 192 133-450 [facility] PasoYvmimtkXPUDVAKYAX0035-46-93 21:59:00 Test Item Value Reference Range Interpretation Comments MPV (test code = MPV) 9.6 7.4-10.4 [place] 107530-01-11 21:59:00 Test Item Value Reference Range Interpretation Comments PT (test code = PT) 13.7 s 12.0-14.7 [facility] PasoTpfksrrEOZHLSGMKV6217-19-14 21:59:00 Test Item Value Reference Range Interpretation Comments INR (test code = INR) 1.05 1 0.85-1.17 [facility] PasoAxwtbohNXBOCWQZTH7185-07-39 21:59:00 Test Item Value Reference Range Interpretation Comments Segs (test code = Segs) 67.6 45.0-75.0 [facility] PasoLhrkfokUMVYCXOICR6987-11-05 21:59:00 Test Item Value Reference Range Interpretation Comments Lymphocytes (test code = Lymphocytes) 23.6 20.0-40.0 [place] 107530-01-11 21:59:00 Test Item Value Reference Range Interpretation Comments Monocytes (test code = Monocytes) 5.8 2.0-12.0 [facility] PasoLvybkmnLPJADVERQI1813-60-31 21:59:00 Test Item Value Reference Range Interpretation Comments Eosinophils (test code = 2.5 See_Comment [A utomated message] The Eosinophils) system which ge nerated this result tra nsmitted reference range : <=4.0. The reference r lily was not used to int erpret this result as normal/abnormal . [facility] PasoOllqwzbRNXKVKYKQY6183-35-71 21:59:00 Test Item Value Reference Range Interpretation Comments Basophils (test code = 0.5 See_Comment [Aut omated message] The Basophils) system which ge nerated this result tra nsmitted reference range : <=1.0. The reference r lily was not used to int erpret this result as normal/abnormal . [facility] PasoVabnwahSONPIPZNQA4380-57-80 21:59:00 Test Item Value Reference Range Interpretation Comments Neutrophils # (test code = Neutrophils 5.1 1.5-8.1 #) [facility] PasoSlvjvqxOCQJZOXAMR1367-42-69 21:59:00 Test Item Value Reference Range Interpretation Comments Lymphocytes # (test code = Lymphocytes 1.8 1.0-5.5 #) [facility] PasoPboyrueUYMXGLQIWS2952-79-86 21:59:00 Test Item Value Reference Range Interpretation Comments Monocytes # (test code 0.4 See_Comment [Aut omated message] The = Monocytes #) system which generated this result tra nsmitted reference range : <=0.8. The reference r lily was not used to int erpret this result as normal/abnormal . [facility] PasoZulteznFMUVXSPFZD9223-57-84 21:59:00 Test Item Value Reference Range Interpretation Comments Eosinophils # (test code 0.2 See_Comment [A utomated message] The = Eosinophils #) system whic h generated this result tra nsmitted reference range : <=0.5. The reference r lily was not used to int erpret this result as normal/abnormal . [facility] AND [id number] 21:59:00 Test Item Value Reference Range Interpretation Comments UA Color (test code = Yellow *NA*(04/09/19 UA Color) 3:59 PM) [facility] AND [id number] 21:59:00 Test Item Value Reference Range Interpretation Comments UA Turbidity (test code = Clear (04/09/19 3:59 UA Turbidity) PM) [facility] AND [id number] 21:59:00 Test Item Value Reference Range Interpretation Comments UA Spec Grav (test code = UA Spec 1.010 1 Grav) [facility] AND [id number] 21:59:00 Test Item Value Reference Range Interpretation Comments UA pH (test code = UA pH) 6.0 1 5.0-8.0 [facility] AND [id number] 21:59:00 Test Item Value Reference Range Interpretation Comments UA Protein (test code Negative (04/09/19 3:59 = UA Protein) PM) [facility] [id number] 21:59:00 Test Item Value Reference Range Interpretation Comments UA Glucose (test code Negative (04/09/19 3:59 = UA Glucose) PM) [facility] [id number] 21:59:00 Test Item Value Reference Range Interpretation Comments UA Ketones (test code Negative *NA*(04/09/19 = UA Ketones) 3:59 PM) [facility] [id number] 21:59:00 Test Item Value Reference Range Interpretation Comments UA Bili (test code = Negative *NA*(04/09/19 UA Bili) 3:59 PM) [facility] [id number] 21:59:00 Test Item Value Reference Range Interpretation Comments UA Blood (test code = Trace *ABN*(04/09/19 UA Blood) 3:59 PM) [facility] [id number] 21:59:00 Test Item Value Reference Range Interpretation Comments UA Urobilinogen (test code = UA 0.2 0.1-1.0 Urobilinogen) [facility] [id number] 21:59:00 Test Item Value Reference Range Interpretation Comments UA Nitrite (test code Negative (04/09/19 3:59 = UA Nitrite) PM) [facility] [id number] 21:59:00 Test Item Value Reference Range Interpretation Comments UA Leuk Est (test Negative (04/09/19 3:59 code = UA Leuk Est) PM) [facility] [id number] 21:59:00 Test Item Value Reference Range Interpretation Comments UA Sq Epi (test code = UA Sq Occasional /LPF Epi) [facility] [id number] 21:59:00 Test Item Value Reference Range Interpretation Comments UA WBC (test code = UA None Seen (04/09/19 3:59 WBC) PM) [facility] [id number] 21:59:00 Test Item Value Reference Range Interpretation Comments UA RBC (test code = 3-5 /HPF See_Comment [Automa shaun message] The UA RBC) system which ge nerated this result tra nsmitted reference range : <=2. The reference range was not used to interpr et this result as jackeline l/abnormal. [facility] [id number] 21:59:00 Test Item Value Reference Range Interpretation Comments UA Bacteria (test code = None Seen (04/09/19 UA Bacteria) 3:59 PM) [facility]CARD[facility]AC [id number] 21:59:00 Test Item Value Reference Range Interpretation Comments Total CK (test code = Total CK) 93 12-191 [facility] [id number] 21:59:00 Test Item Value Reference Range Interpretation Comments Troponin-I (test code 0.03 See_Comment [Auto mated message] The = Troponin-I) system which g enerated this result transmit shaun reference range : <=0.40. The reference r lily was not used to interpr et this result as jackeline l/abnormal. [facility] [id number] 21:59:00 Test Item Value Reference Range Interpretation Comments Glucose Lvl (test code = Glucose Lvl) 142 70-99 [facility] [id number] 21:59:00 Test Item Value Reference Range Interpretation Comments BUN (test code = BUN) 13 7-22 [facility] [id number] 21:59:00 Test Item Value Reference Range Interpretation Comments Creatinine Lvl (test code = Creatinine 0.79 0.50-1.40 Lvl) [facility] [id number] 21:59:00 Test Item Value Reference Range Interpretation Comments Sodium Lvl (test code = Sodium Lvl) 131 135-145 [facility] [id number] 21:59:00 Test Item Value Reference Range Interpretation Comments Potassium Lvl (test code = Potassium 3.4 3.5-5.1 Lvl) [facility] [id number] 21:59:00 Test Item Value Reference Range Interpretation Comments Chloride Lvl (test code = Chloride Lvl) 98 95-109 [facility] [id number] 21:59:00 Test Item Value Reference Range Interpretation Comments CO2 (test code = CO2) 33 24-32 [facility] [id number] 21:59:00 Test Item Value Reference Range Interpretation Comments Calcium Lvl (test code = Calcium Lvl) 9.3 8.5-10.5 [facility] [id number] 21:59:00 Test Item Value Reference Range Interpretation Comments Total Protein (test code = Total 8.1 6.4-8.4 Protein) [facility] [id number] 21:59:00 Test Item Value Reference Range Interpretation Comments Albumin Lvl (test code = Albumin Lvl) 3.6 3.5-5.0 [facility] [id number] 21:59:00 Test Item Value Reference Range Interpretation Comments ALT (test code = ALT) 18 See_Comment [Auto mated message] The system which ge nerated this result transmit shaun reference range : <=65. The reference range was not used to interpr et this result as jackeline l/abnormal. [facility] [id number] 21:59:00 Test Item Value Reference Range Interpretation Comments AST (test code = AST) 21 See_Comment [Auto mated message] The system which ge nerated this result transmit shaun reference range : <=37. The reference range was not used to interpr et this result as jackeline l/abnormal. [facility] fav.or.it [id number] 21:59:00 Test Item Value Reference Range Interpretation Comments Alk Phos (test code = Alk Phos) 95 39-136 [facility] fav.or.it [id number] 21:59:00 Test Item Value Reference Range Interpretation Comments Bili Total (test code = Bili Total) 0.5 0.2-1.3 [facility] fav.or.it [id number] 21:59:00 Test Item Value Reference Range Interpretation Comments AGAP (test code = AGAP) 3.4 10.0-20.0 [facility] fav.or.it [id number] 21:59:00 Test Item Value Reference Range Interpretation Comments B/C Ratio (test code = B/C Ratio) 16 1 6-25 [facility] [id number] 21:59:00 Test Item Value Reference Range Interpretation Comments Globulin (test code = Globulin) 4.5 2.7-4.2 [facility] fav.or.it [id number] 21:59:00 Test Item Value Reference Range Interpretation Comments A/G Ratio (test code = A/G Ratio) 0.8 1 0.7-1.6 [facility]2020-01-11 21:59:00 Test Item Value Reference Range Interpretation Comments eGFR (test code = eGFR) 78 [facility]2020-01-11 21:59:00 Test Item Value Reference Range Interpretation Comments Lipase Lvl (test code = Lipase Lvl) 112 73-393 [facility]2020-01-11 21:59:00 Test Item Value Reference Range Interpretation Comments Magnesium Lvl (test code = Magnesium 1.6 1.8-2.4 Lvl) [facility] PasoFedpgpwDAQTQKTXBE2491-45-91 21:59:00 Test Item Value Reference Range Interpretation Comments WBC (test code = WBC) 7.6 3.7-10.4 [facility] PasoLjiqkpaCDXLAFOGZW0834-54-66 21:59:00 Test Item Value Reference Range Interpretation Comments RBC (test code = RBC) 4.45 4.20-5.40 [facility] PasoEwsgxmwPUBHOYBHBT6560-07-72 21:59:00 Test Item Value Reference Range Interpretation Comments Hgb (test code = Hgb) 13.6 12.0-16.0 [facility] PasoLkhimzhPGUVRZHQQF4670-86-08 21:59:00 Test Item Value Reference Range Interpretation Comments Hct (test code = Hct) 40.3 36.0-48.0 [facility] PasoMlswgzqDBVUNCJCEL5044-31-10 21:59:00 Test Item Value Reference Range Interpretation Comments MCV (test code = MCV) 90.6 80.0-98.0 [facility] PasoXreohenHSZOMFXSDW6907-17-17 21:59:00 Test Item Value Reference Range Interpretation Comments MCH (test code = MCH) 30.5 pg 27.0-31.0 [facility] Pa[id number] 21:59:00 Test Item Value Reference Range Interpretation Comments MCHC (test code = MCHC) 33.7 32.0-36.0 [facility] PasoQcudlowGPUMNVPEYQ6421-47-30 21:59:00 Test Item Value Reference Range Interpretation Comments RDW (test code = RDW) 12.9 11.5-14.5 [facility] PasoBkxtokpRJUWSVKWJP6907-41-73 21:59:00 Test Item Value Reference Range Interpretation Comments Platelet (test code = Platelet) 192 133-450 [facility] Pa[id number] 21:59:00 Test Item Value Reference Range Interpretation Comments MPV (test code = MPV) 9.6 7.4-10.4 [facility] PasoJdnbzueNSFVCZPCIY5466-64-04 21:59:00 Test Item Value Reference Range Interpretation Comments PT (test code = PT) 13.7 s 12.0-14.7 [facility] PasoBsmcaqdEZMWXSDVYA1515-85-42 21:59:00 Test Item Value Reference Range Interpretation Comments INR (test code = INR) 1.05 1 0.85-1.17 [facility] PasoTzexsadTPTOSLJXAU8624-53-96 21:59:00 Test Item Value Reference Range Interpretation Comments Segs (test code = Segs) 67.6 45.0-75.0 [facility] [id number] 21:59:00 Test Item Value Reference Range Interpretation Comments Lymphocytes (test code = Lymphocytes) 23.6 20.0-40.0 [place] 107530-01-11 21:59:00 Test Item Value Reference Range Interpretation Comments Monocytes (test code = Monocytes) 5.8 2.0-12.0 [facility] PasoQeuvkvbDRIMVNGEHX9654-80-64 21:59:00 Test Item Value Reference Range Interpretation Comments Eosinophils (test code = 2.5 See_Comment [A utomated message] The Eosinophils) system which ge nerated this result tra nsmitted reference range : <=4.0. The reference r lily was not used to int erpret this result as normal/abnormal . [facility] PasoNeuainoCACBVXCTJO8223-62-25 21:59:00 Test Item Value Reference Range Interpretation Comments Basophils (test code = 0.5 See_Comment [Aut omated message] The Basophils) system which ge nerated this result tra nsmitted reference range : <=1.0. The reference r lily was not used to int erpret this result as normal/abnormal . [facility] PasoJbmmkllYEYFVVYNYJ9956-35-65 21:59:00 Test Item Value Reference Range Interpretation Comments Neutrophils # (test code = Neutrophils 5.1 1.5-8.1 #) [facility] PasoRpzkwunBNIJSKPHPS7969-52-34 21:59:00 Test Item Value Reference Range Interpretation Comments Lymphocytes # (test code = Lymphocytes 1.8 1.0-5.5 #) [facility] PasoZvoirrsTPZCCPCQVE3141-25-42 21:59:00 Test Item Value Reference Range Interpretation Comments Monocytes # (test code 0.4 See_Comment [Aut omated message] The = Monocytes #) system which generated this result tra nsmitted reference range : <=0.8. The reference r lily was not used to int erpret this result as normal/abnormal . [facility] ExigatoSXXBUQNKPU5952-74-93 21:59:00 Test Item Value Reference Range Interpretation Comments Eosinophils # (test code 0.2 See_Comment [A utomated message] The = Eosinophils #) system whic h generated this result tra nsmitted reference range : <=0.5. The reference r lily was not used to int erpret this result as normal/abnormal . [facility] [id number] 21:59:00 Test Item Value Reference Range Interpretation Comments UA Color (test code = Yellow *NA*(04/09/19 UA Color) 3:59 PM) [facility] [place] [facility] [id number] 21:59:00 Test Item Value Reference Range Interpretation Comments UA Turbidity (test code = Clear (04/09/19 3:59 [facility] Turbidity) PM) [facility] [id number] 21:59:00 Test Item Value Reference Range Interpretation Comments UA Spec Grav (test code = UA Spec 1.010 1 Grav) [facility] [id number] 21:59:00 Test Item Value Reference Range Interpretation Comments UA pH (test code = UA pH) 6.0 1 5.0-8.0 [facility] [id number] 21:59:00 Test Item Value Reference Range Interpretation Comments UA Protein (test code Negative (04/09/19 3:59 = UA Protein) PM) [facility] [id number] 21:59:00 Test Item Value Reference Range Interpretation Comments UA Glucose (test code Negative (04/09/19 3:59 = UA Glucose) PM) [facility] [id number] 21:59:00 Test Item Value Reference Range Interpretation Comments UA Ketones (test code Negative *NA*(04/09/19 = UA Ketones) 3:59 PM) [facility] [id number] 21:59:00 Test Item Value Reference Range Interpretation Comments UA Bili (test code = Negative *NA*(04/09/19 UA Bili) 3:59 PM) [facility] [id number] 21:59:00 Test Item Value Reference Range Interpretation Comments UA Blood (test code = Trace *ABN*(04/09/19 UA Blood) 3:59 PM) [facility] [id number] 21:59:00 Test Item Value Reference Range Interpretation Comments UA Urobilinogen (test code = UA 0.2 0.1-1.0 Urobilinogen) [facility] [id number] 21:59:00 Test Item Value Reference Range Interpretation Comments UA Nitrite (test code Negative (04/09/19 3:59 = UA Nitrite) PM) [facility] [id number] 21:59:00 Test Item Value Reference Range Interpretation Comments UA Leuk Est (test Negative (04/09/19 3:59 code = UA Leuk Est) PM) [facility] [id number] 21:59:00 Test Item Value Reference Range Interpretation Comments UA Sq Epi (test code = UA Sq Occasional /LPF Epi) [facility] [id number] 21:59:00 Test Item Value Reference Range Interpretation Comments UA WBC (test code = UA None Seen (04/09/19 3:59 WBC) PM) [facility] [id number] 21:59:00 Test Item Value Reference Range Interpretation Comments UA RBC (test code = 3-5 /HPF See_Comment [Automa shaun message] The UA RBC) system which ge nerated this result tra nsmitted reference range : <=2. The reference range was not used to interpr et this result as jackeline l/abnormal. [facility] [id number] 21:59:00 Test Item Value Reference Range Interpretation Comments UA Bacteria (test code = None Seen (04/09/19 UA Bacteria) 3:59 PM) [facility] [id number] 21:59:00 Test Item Value Reference Range Interpretation Comments Total CK (test code = Total CK) 93 12-191 [facility] [id number] 21:59:00 Test Item Value Reference Range Interpretation Comments Troponin-I (test code 0.03 See_Comment [Auto mated message] The = Troponin-I) system which g enerated this result transmit shaun reference range : <=0.40. The reference r lily was not used to interpr et this result as jackeline l/abnormal. [facility] [id number] 21:59:00 Test Item Value Reference Range Interpretation Comments Glucose Lvl (test code = Glucose Lvl) 142 70-99 [place] 626920-01-11 21:59:00 Test Item Value Reference Range Interpretation Comments BUN (test code = BUN) 13 7-22 [facility]2020-01-11 21:59:00 Test Item Value Reference Range Interpretation Comments Creatinine Lvl (test code = Creatinine 0.79 0.50-1.40 Lvl) [place] 626920-01-11 21:59:00 Test Item Value Reference Range Interpretation Comments Sodium Lvl (test code = Sodium Lvl) 131 135-145 [place] 626920-01-11 21:59:00 Test Item Value Reference Range Interpretation Comments Potassium Lvl (test code = Potassium 3.4 3.5-5.1 Lvl) [place] 626920-01-11 21:59:00 Test Item Value Reference Range Interpretation Comments Chloride Lvl (test code = Chloride Lvl) 98 95-109 [place] 626920-01-11 21:59:00 Test Item Value Reference Range Interpretation Comments CO2 (test code = CO2) 33 24-32 [place] 626920-01-11 21:59:00 Test Item Value Reference Range Interpretation Comments Calcium Lvl (test code = Calcium Lvl) 9.3 8.5-10.5 [facility] [id number] 21:59:00 Test Item Value Reference Range Interpretation Comments Total Protein (test code = Total 8.1 6.4-8.4 Protein) [place] 626920-01-11 21:59:00 Test Item Value Reference Range Interpretation Comments Albumin Lvl (test code = Albumin Lvl) 3.6 3.5-5.0 [place] 626920-01-11 21:59:00 Test Item Value Reference Range Interpretation Comments ALT (test code = ALT) 18 See_Comment [Auto mated message] The system which ge nerated this result transmit shaun reference range : <=65. The reference range was not used to interpr et this result as jackeline l/abnormal. [facility] [id number] 21:59:00 Test Item Value Reference Range Interpretation Comments AST (test code = AST) 21 See_Comment [Auto mated message] The system which ge nerated this result transmit shaun reference range : <=37. The reference range was not used to interpr et this result as jackeline l/abnormal. [facility]2020-01-11 21:59:00 Test Item Value Reference Range Interpretation Comments Alk Phos (test code = Alk Phos) 95 39-136 [facility]2020-01-11 21:59:00 Test Item Value Reference Range Interpretation Comments Bili Total (test code = Bili Total) 0.5 0.2-1.3 [place] 626920-01-11 21:59:00 Test Item Value Reference Range Interpretation Comments AGAP (test code = AGAP) 3.4 10.0-20.0 [place] [address]-01-11 21:59:00 Test Item Value Reference Range Interpretation Comments B/C Ratio (test code = B/C Ratio) 16 1 6-25 [place] [address]-01-11 21:59:00 Test Item Value Reference Range Interpretation Comments Globulin (test code = Globulin) 4.5 2.7-4.2 [place] 626920-01-11 21:59:00 Test Item Value Reference Range Interpretation Comments A/G Ratio (test code = A/G Ratio) 0.8 1 0.7-1.6 [place] 626920-01-11 21:59:00 Test Item Value Reference Range Interpretation Comments eGFR (test code = eGFR) 78 [facility]2020-01-11 21:59:00 Test Item Value Reference Range Interpretation Comments Lipase Lvl (test code = Lipase Lvl) 112 73-393 [place] 626920-01-11 21:59:00 Test Item Value Reference Range Interpretation Comments Magnesium Lvl (test code = Magnesium 1.6 1.8-2.4 Lvl) [facility] [id number] 21:59:00 Test Item Value Reference Range Interpretation Comments WBC (test code = WBC) 7.6 3.7-10.4 [facility] [id number] 21:59:00 Test Item Value Reference Range Interpretation Comments RBC (test code = RBC) 4.45 4.20-5.40 [facility] [id number] 21:59:00 Test Item Value Reference Range Interpretation Comments Hgb (test code = Hgb) 13.6 12.0-16.0 [facility] [id number] 21:59:00 Test Item Value Reference Range Interpretation Comments Hct (test code = Hct) 40.3 36.0-48.0 [facility] [id number] 21:59:00 Test Item Value Reference Range Interpretation Comments MCV (test code = MCV) 90.6 80.0-98.0 [facility] PasoYwoquvsXOQVFHHSDZ0534-18-99 21:59:00 Test Item Value Reference Range Interpretation Comments MCH (test code = MCH) 30.5 pg 27.0-31.0 [facility] PasoTrfordoDBMDNFHDDN3168-91-97 21:59:00 Test Item Value Reference Range Interpretation Comments MCHC (test code = MCHC) 33.7 32.0-36.0 [facility] PasoRrbtxqaDXNRKOVYFR7157-20-04 21:59:00 Test Item Value Reference Range Interpretation Comments RDW (test code = RDW) 12.9 11.5-14.5 [facility] PasoX[id number] 21:59:00 Test Item Value Reference Range Interpretation Comments Platelet (test code = Platelet) 192 133-450 [facility] PasoQyggvxlBDTMHEXCMG2242-72-05 21:59:00 Test Item Value Reference Range Interpretation Comments MPV (test code = MPV) 9.6 7.4-10.4 [facility] PasoPchqmsyFPBWSGNCVF4245-50-08 21:59:00 Test Item Value Reference Range Interpretation Comments PT (test code = PT) 13.7 s 12.0-14.7 [facility] PasoTcjnasvBHSBCFGUBO4587-95-95 21:59:00 Test Item Value Reference Range Interpretation Comments INR (test code = INR) 1.05 1 0.85-1.17 [facility] PasoCsaoubeMNRSEKTMJW5259-26-60 21:59:00 Test Item Value Reference Range Interpretation Comments Segs (test code = Segs) 67.6 45.0-75.0 [facility] Pa[id number] 21:59:00 Test Item Value Reference Range Interpretation Comments Lymphocytes (test code = Lymphocytes) 23.6 20.0-40.0 [facility] PasoXvutnhoTSJJWSIDMS3450-19-01 21:59:00 Test Item Value Reference Range Interpretation Comments Monocytes (test code = Monocytes) 5.8 2.0-12.0 [facility] PasoJtbanzzDEVKTQWJXQ6381-37-39 21:59:00 Test Item Value Reference Range Interpretation Comments Eosinophils (test code = 2.5 See_Comment [A utomated message] The Eosinophils) system which ge nerated this result tra nsmitted reference range : <=4.0. The reference r illy was not used to int erpret this result as normal/abnormal . [facility] Pa[id number] 21:59:00 Test Item Value Reference Range Interpretation Comments Basophils (test code = 0.5 See_Comment [Aut omated message] The Basophils) system which ge nerated this result tra nsmitted reference range : <=1.0. The reference r lily was not used to int erpret this result as normal/abnormal . [facility] PasoVvcpvpzEEHADKIJUV8059-77-62 21:59:00 Test Item Value Reference Range Interpretation Comments Neutrophils # (test code = Neutrophils 5.1 1.5-8.1 #) [facility] PasoHhgtckoUMFRAQBYWQ1687-97-91 21:59:00 Test Item Value Reference Range Interpretation Comments Lymphocytes # (test code = Lymphocytes 1.8 1.0-5.5 #) [facility] PasoUgcxtrlGSCHBNTRKP8463-76-67 21:59:00 Test Item Value Reference Range Interpretation Comments Monocytes # (test code 0.4 See_Comment [Aut omated message] The = Monocytes #) system which generated this result tra nsmitted reference range : <=0.8. The reference r lily was not used to int erpret this result as normal/abnormal . [facility] Pa[id number] 21:59:00 Test Item Value Reference Range Interpretation Comments Eosinophils # (test code 0.2 See_Comment [A utomated message] The = Eosinophils #) system [facility] generated this result tra nsmitted reference range : <=0.5. The reference r lily was not used to int erpret this result as normal/abnormal . [facility]2020-01-11 21:59:00 Test Item Value Reference Range Interpretation Comments UA Color (test code = Yellow *NA*(04/09/19 UA Color) 3:59 PM) [facility] [id number] 21:59:00 Test Item Value Reference Range Interpretation Comments UA Turbidity (test code = Clear (04/09/19 3:59 UA Turbidity) PM) [facility] [id number] 21:59:00 Test Item Value Reference Range Interpretation Comments UA Spec Grav (test code = UA Spec 1.010 1 Grav) [facility] [id number] 21:59:00 Test Item Value Reference Range Interpretation Comments UA pH (test code = UA pH) 6.0 1 5.0-8.0 [facility] [id number] 21:59:00 Test Item Value Reference Range Interpretation Comments UA Protein (test code Negative (04/09/19 3:59 = UA Protein) PM) [facility] [id number] 21:59:00 Test Item Value Reference Range Interpretation Comments UA Glucose (test code Negative (04/09/19 3:59 = UA Glucose) PM) [facility] [id number] 21:59:00 Test Item Value Reference Range Interpretation Comments UA Ketones (test code Negative *NA*(04/09/19 = UA Ketones) 3:59 PM) [facility] [id number] 21:59:00 Test Item Value Reference Range Interpretation Comments UA Bili (test code = Negative *NA*(04/09/19 UA Bili) 3:59 PM) [facility] [id number] 21:59:00 Test Item Value Reference Range Interpretation Comments UA Blood (test code = Trace *ABN*(04/09/19 UA Blood) 3:59 PM) [facility] [id number] 21:59:00 Test Item Value Reference Range Interpretation Comments UA Urobilinogen (test code = UA 0.2 0.1-1.0 Urobilinogen) [facility] [id number] 21:59:00 Test Item Value Reference Range Interpretation Comments UA Nitrite (test code Negative (04/09/19 3:59 = UA Nitrite) PM) [facility] [id number] 21:59:00 Test Item Value Reference Range Interpretation Comments UA Leuk Est (test Negative (04/09/19 3:59 code = UA Leuk Est) PM) [facility] [id number] 21:59:00 Test Item Value Reference Range Interpretation Comments UA Sq Epi (test code = UA Sq Occasional /LPF Epi) [facility] [id number] 21:59:00 Test Item Value Reference Range Interpretation Comments UA WBC (test code = UA None Seen (04/09/19 3:59 WBC) PM) [facility] [id number] 21:59:00 Test Item Value Reference Range Interpretation Comments UA RBC (test code = 3-5 /HPF See_Comment [Automa shaun message] The UA RBC) system which ge nerated this result tra nsmitted reference range : <=2. The reference range was not used to interpr et this result as jackeline l/abnormal. [facility] [id number] 21:59:00 Test Item Value Reference Range Interpretation Comments UA Bacteria (test code = None Seen (04/09/19 UA Bacteria) 3:59 PM) [facility]ownannCARDIAC [id number] 21:59:00 Test Item Value Reference Range Interpretation Comments Total CK (test code = Total CK) 93 12-191 [facility] UptownTabSquareCARDIAC [id number] 21:59:00 Test Item Value Reference Range Interpretation Comments Troponin-I (test code 0.03 See_Comment [Auto mated message] The = Troponin-I) system which g enerated this result transmit shaun reference range : <=0.40. The reference r lily was not used to interpr et this result as jackeline l/abnormal. [facility] fav[employer]or.it [id number] 21:59:00 Test Item Value Reference Range Interpretation Comments Glucose Lvl (test code = Glucose Lvl) 142 70-99 [facility] fav.or.it [id number] 21:59:00 Test Item Value Reference Range Interpretation Comments BUN (test code = BUN) 13 7-22 [facility]ptownAdQuantic [id number] 21:59:00 Test Item Value Reference Range Interpretation Comments Creatinine Lvl (test code = Creatinine 0.79 0.50-1.40 Lvl) [facility]ownAt[facility] [id number] 21:59:00 Test Item Value Reference Range Interpretation Comments Sodium Lvl (test code = Sodium Lvl) 131 135-145 [place] 626920-01-11 21:59:00 Test Item Value Reference Range Interpretation Comments Potassium Lvl (test code = Potassium 3.4 3.5-5.1 Lvl) [place] 626920-01-11 21:59:00 Test Item Value Reference Range Interpretation Comments Chloride Lvl (test code = Chloride Lvl) 98 95-109 [place] 626920-01-11 21:59:00 Test Item Value Reference Range Interpretation Comments CO2 (test code = CO2) 33 24-32 [place] 626920-01-11 21:59:00 Test Item Value Reference Range Interpretation Comments Calcium Lvl (test code = Calcium Lvl) 9.3 8.5-10.5 [place] 626920-01-11 21:59:00 Test Item Value Reference Range Interpretation Comments Total Protein (test code = Total 8.1 6.4-8.4 Protein) [place] 626920-01-11 21:59:00 Test Item Value Reference Range Interpretation Comments Albumin Lvl (test code = Albumin Lvl) 3.6 3.5-5.0 [place] 626920-01-11 21:59:00 Test Item Value Reference Range Interpretation Comments ALT (test code = ALT) 18 See_Comment [Auto mated message] The system which ge nerated this result transmit shaun reference range : <=65. The reference range was not used to interpr et this result as jackeline l/abnormal. [facility] [id number] 21:59:00 Test Item Value Reference Range Interpretation Comments AST (test code = AST) 21 See_Comment [Auto mated message] The system which ge nerated this result transmit shaun reference range : <=37. The reference range was not used to interpr et this result as jackeline l/abnormal. [facility] [id number] 21:59:00 Test Item Value Reference Range Interpretation Comments Alk Phos (test code = Alk Phos) 95 39-136 [facility] [id number] 21:59:00 Test Item Value Reference Range Interpretation Comments Bili Total (test code = Bili Total) 0.5 0.2-1.3 [place] 626920-01-11 21:59:00 Test Item Value Reference Range Interpretation Comments AGAP (test code = AGAP) 3.4 10.0-20.0 [place] 626920-01-11 21:59:00 Test Item Value Reference Range Interpretation Comments B/C Ratio (test code = B/C Ratio) 16 1 6-25 [place] 626920-01-11 21:59:00 Test Item Value Reference Range Interpretation Comments Globulin (test code = Globulin) 4.5 2.7-4.2 [place] 626920-01-11 21:59:00 Test Item Value Reference Range Interpretation Comments A/G Ratio (test code = A/G Ratio) 0.8 1 0.7-1.6 [place] [address]-01-11 21:59:00 Test Item Value Reference Range Interpretation Comments eGFR (test code = eGFR) 78 [place] 626920-01-11 21:59:00 Test Item Value Reference Range Interpretation Comments Lipase Lvl (test code = Lipase Lvl) 112 73-393 [place] 626920-01-11 21:59:00 Test Item Value Reference Range Interpretation Comments Magnesium Lvl (test code = Magnesium 1.6 1.8-2.4 Lvl) [place] 107530-01-11 21:59:00 Test Item Value Reference Range Interpretation Comments WBC (test code = WBC) 7.6 3.7-10.4 [place] 107530-01-11 21:59:00 Test Item Value Reference Range Interpretation Comments RBC (test code = RBC) 4.45 4.20-5.40 [place] [address]-01-11 21:59:00 Test Item Value Reference Range Interpretation Comments Hgb (test code = Hgb) 13.6 12.0-16.0 [place] [address]-01-11 21:59:00 Test Item Value Reference Range Interpretation Comments Hct (test code = Hct) 40.3 36.0-48.0 [place] 107530-01-11 21:59:00 Test Item Value Reference Range Interpretation Comments MCV (test code = MCV) 90.6 80.0-98.0 [place] 107530-01-11 21:59:00 Test Item Value Reference Range Interpretation Comments MCH (test code = MCH) 30.5 pg 27.0-31.0 [facility] PasoZckdnubHAHBOQGFYX4243-30-04 21:59:00 Test Item Value Reference Range Interpretation Comments MCHC (test code = MCHC) 33.7 32.0-36.0 [facility] PasoPkyejcfUZJBEHTOHM5311-49-27 21:59:00 Test Item Value Reference Range Interpretation Comments RDW (test code = RDW) 12.9 11.5-14.5 [facility] PasoNeffonaGFADHFXKOM1145-17-07 21:59:00 Test Item Value Reference Range Interpretation Comments Platelet (test code = Platelet) 192 133-450 [facility]ownAdQu[facility] [id number] 09:17:00 Test Item Value Reference Range Interpretation Comments eGFR (test code = eGFR) 94 [facility]2016-07-18 09:17:00 Test Item Value Reference Range Interpretation Comments Globulin (test code = Globulin) 3.7 2.0-4.0 [facility] [id number] 09:17:00 Test Item Value Reference Range Interpretation Comments ALT (test code = ALT) 24 See_Comment [Auto mated message] The system which ge nerated this result transmit shaun reference range : <=65. The reference range was not used to interpr et this result as jackeline l/abnormal. [facility] [id number] 09:17:00 Test Item Value Reference Range Interpretation Comments A/G Ratio (test code = A/G Ratio) 0.8 0.7-1.6 [facility] [id number] 09:17:00 Test Item Value Reference Range Interpretation Comments Alk Phos (test code = Alk Phos) 69 39-136 [facility] [id number] 09:17:00 Test Item Value Reference Range Interpretation Comments AST (test code = AST) 17 See_Comment [Auto mated message] The system which ge nerated this result transmit shaun reference range : <=37. The reference range was not used to interpr et this result as jackeline l/abnormal. [facility] [id number] 09:17:00 Test Item Value Reference Range Interpretation Comments Bili Total (test code = Bili Total) 0.6 0.2-1.3 [facility]2016-07-18 09:17:00 Test Item Value Reference Range Interpretation Comments Glucose Lvl (test code = Glucose Lvl) 102 70-99 [facility]2016-07-18 09:17:00 Test Item Value Reference Range Interpretation Comments BUN (test code = BUN) 10 7-22 [facility]2016-07-18 09:17:00 Test Item Value Reference Range Interpretation Comments Creatinine Lvl (test code = Creatinine 0.68 0.50-1.40 Lvl) [facility]2016-07-18 09:17:00 Test Item Value Reference Range Interpretation Comments Chloride Lvl (test code = Chloride Lvl) 107 95-109 [facility]2016-07-18 09:17:00 Test Item Value Reference Range Interpretation Comments Potassium Lvl (test code = Potassium 3.9 3.5-5.1 Lvl) [facility]2016-07-18 09:17:00 Test Item Value Reference Range Interpretation Comments CO2 (test code = CO2) 29 24-32 [facility]2016-07-18 09:17:00 Test Item Value Reference Range Interpretation Comments Sodium Lvl (test code = Sodium Lvl) 143 135-145 [facility]2016-07-18 09:17:00 Test Item Value Reference Range Interpretation Comments Total Protein (test code = Total 6.5 6.4-8.4 Protein) [facility]2016-07-18 09:17:00 Test Item Value Reference Range Interpretation Comments B/C Ratio (test code = B/C Ratio) 15 6-25 [facility]2016-07-18 09:17:00 Test Item Value Reference Range Interpretation Comments Albumin Lvl (test code = Albumin Lvl) 2.8 3.5-5.0 [facility]2016-07-18 09:17:00 Test Item Value Reference Range Interpretation Comments Calcium Lvl (test code = Calcium Lvl) 8.6 8.5-10.5 [facility]2016-07-18 09:17:00 Test Item Value Reference Range Interpretation Comments AGAP (test code = AGAP) 10.9 10.0-20.0 [facility] [id number] 09:17:00 Test Item Value Reference Range Interpretation Comments Basophils (test code = 0.3 See_Comment [Aut omated message] The Basophils) system which ge nerated this result tra nsmitted reference range : <=1.0. The reference r lily was not used to int erpret this result as normal/abnormal . [facility] PasoPkzemqcXLDWPQYVMC3117-30-08 09:17:00 Test Item Value Reference Range Interpretation Comments Eosinophils (test code = 1.3 See_Comment [A utomated message] The Eosinophils) system which ge nerated this result tra nsmitted reference range : <=4.0. The reference r lily was not used to int erpret this result as normal/abnormal . [facility] PasoWwskruuHSEIEDFOMM2319-29-38 09:17:00 Test Item Value Reference Range Interpretation Comments Monocytes # (test code 0.7 See_Comment [Aut omated message] The = Monocytes #) system which generated this result tra nsmitted reference range : <=0.8. The reference r lily was not used to int erpret this result as normal/abnormal . [facility] PasoTwfmejaTFTPQDYPLQ3077-17-51 09:17:00 Test Item Value Reference Range Interpretation Comments Lymphocytes # (test code = Lymphocytes 1.7 1.0-5.5 #) [facility] PasoUacwlleRMYGAYGRKD7895-92-60 09:17:00 Test Item Value Reference Range Interpretation Comments Segs-Bands # (test code = Segs-Bands #) 5.8 1.5-8.1 [facility] PasoZvfmccuHICRRDHHYI5745-71-98 09:17:00 Test Item Value Reference Range Interpretation Comments Lymphocytes (test code = Lymphocytes) 20.7 20.0-40.0 [facility] PasoMtvjnlyBAVXMMHRDQ9114-55-33 09:17:00 Test Item Value Reference Range Interpretation Comments Monocytes (test code = Monocytes) 8.4 2.0-12.0 [facility] PasoWruiqutPQUFSJSMXO7011-00-85 09:17:00 Test Item Value Reference Range Interpretation Comments Eosinophils # (test code 0.1 See_Comment [A utomated message] The = Eosinophils #) system [facility] generated this result tra nsmitted reference range : <=0.5. The reference r lily was not used to int erpret this result as normal/abnormal . [facility] PasoMwqdlgkKJKQZGANMB4115-42-69 09:17:00 Test Item Value Reference Range Interpretation Comments Segs (test code = Segs) 69.3 45.0-75.0 [facility] PasoFdrybanSIMLCPAIBO7381-95-34 09:17:00 Test Item Value Reference Range Interpretation Comments Hgb (test code = Hgb) 11.7 12.0-16.0 [facility] PasoPeiatcxHMNUZWZIFV6201-47-14 09:17:00 Test Item Value Reference Range Interpretation Comments RBC (test code = RBC) 3.81 4.20-5.40 [facility] PasoAbpevcmFTLUOVQSXC1302-47-32 09:17:00 Test Item Value Reference Range Interpretation Comments WBC (test code = WBC) 8.4 3.7-10.4 [facility] PasoTtdemkcCZKUAONAJL2822-40-50 09:17:00 Test Item Value Reference Range Interpretation Comments MCH (test code = MCH) 30.7 pg 27.0-31.0 [facility] PasoXcxgbxnHUSKKQMJAG5226-95-39 09:17:00 Test Item Value Reference Range Interpretation Comments MCV (test code = MCV) 89.3 80.0-98.0 [facility] PasoEqmxfkmQZGAPHXRGQ4797-27-92 09:17:00 Test Item Value Reference Range Interpretation Comments Hct (test code = Hct) 34.0 36.0-48.0 [facility] PasoLhwzsgtYMXSIBPNLC1796-96-95 09:17:00 Test Item Value Reference Range Interpretation Comments Platelet (test code = Platelet) 143 133-450 [facility] PasoLnuzhlrAXADXQZTOQ9553-13-46 09:17:00 Test Item Value Reference Range Interpretation Comments RDW (test code = RDW) 13.2 11.5-14.5 [facility] PasoUbeuhoyJYWPCGYDUY6947-93-13 09:17:00 Test Item Value Reference Range Interpretation Comments MCHC (test code = MCHC) 34.4 32.0-36.0 [facility] PasoHsqostmDZRODEHFMS4667-39-29 09:17:00 Test Item Value Reference Range Interpretation Comments MPV (test code = MPV) 10.3 7.4-10.4 [facility]2016-07-18 09:17:00 Test Item Value Reference Range Interpretation Comments eGFR (test code = eGFR) 94 [facility] ZOMYP8288-19-35 09:17:00 Test Item Value Reference Range Interpretation Comments Globulin (test code = Globulin) 3.7 2.0-4.0 [place] 523386-07-18 09:17:00 Test Item Value Reference Range Interpretation Comments ALT (test code = ALT) 24 See_Comment [Auto mated message] The system which ge nerated this result transmit shaun reference range : <=65. The reference range was not used to interpr et this result as jackeline l/abnormal. [place] 523386-07-18 09:17:00 Test Item Value Reference Range Interpretation Comments A/G Ratio (test code = A/G Ratio) 0.8 0.7-1.6 [place] 523386-07-18 09:17:00 Test Item Value Reference Range Interpretation Comments Alk Phos (test code = Alk Phos) 69 39-136 [place] 523386-07-18 09:17:00 Test Item Value Reference Range Interpretation Comments AST (test code = AST) 17 See_Comment [Auto mated message] The system which ge nerated this result transmit shaun reference range : <=37. The reference range was not used to interpr et this result as jackeline l/abnormal. [place] 523386-07-18 09:17:00 Test Item Value Reference Range Interpretation Comments Bili Total (test code = Bili Total) 0.6 0.2-1.3 [place] 523386-07-18 09:17:00 Test Item Value Reference Range Interpretation Comments Glucose Lvl (test code = Glucose Lvl) 102 70-99 [place] 523386-07-18 09:17:00 Test Item Value Reference Range Interpretation Comments BUN (test code = BUN) 10 7-22 [place] 523386-07-18 09:17:00 Test Item Value Reference Range Interpretation Comments Creatinine Lvl (test code = Creatinine 0.68 0.50-1.40 Lvl) [place] 523386-07-18 09:17:00 Test Item Value Reference Range Interpretation Comments Chloride Lvl (test code = Chloride Lvl) 107 95-109 [place] 523386-07-18 09:17:00 Test Item Value Reference Range Interpretation Comments Potassium Lvl (test code = Potassium 3.9 3.5-5.1 Lvl) [place] 523386-07-18 09:17:00 Test Item Value Reference Range Interpretation Comments CO2 (test code = CO2) 29 24-32 [facility]2016-07-18 09:17:00 Test Item Value Reference Range Interpretation Comments Sodium Lvl (test code = Sodium Lvl) 143 135-145 [facility]2016-07-18 09:17:00 Test Item Value Reference Range Interpretation Comments Total Protein (test code = Total 6.5 6.4-8.4 Protein) [facility]2016-07-18 09:17:00 Test Item Value Reference Range Interpretation Comments B/C Ratio (test code = B/C Ratio) 15 6-25 [place] 523386-07-18 09:17:00 Test Item Value Reference Range Interpretation Comments Albumin Lvl (test code = Albumin Lvl) 2.8 3.5-5.0 [place] 523386-07-18 09:17:00 Test Item Value Reference Range Interpretation Comments Calcium Lvl (test code = Calcium Lvl) 8.6 8.5-10.5 [facility]2016-07-18 09:17:00 Test Item Value Reference Range Interpretation Comments AGAP (test code = AGAP) 10.9 10.0-20.0 [facility] PasoUnpxdvbRWCZYXYSBS7278-34-65 09:17:00 Test Item Value Reference Range Interpretation Comments Basophils (test code = 0.3 See_Comment [Aut omated message] The Basophils) system which ge nerated this result tra nsmitted reference range : <=1.0. The reference r lily was not used to int erpret this result as normal/abnormal . [facility] PasoJqnlfhhTCFLLKRZIK4498-09-78 09:17:00 Test Item Value Reference Range Interpretation Comments Eosinophils (test code = 1.3 See_Comment [A utomated message] The Eosinophils) system which ge nerated this result tra nsmitted reference range : <=4.0. The reference r lily was not used to int erpret this result as normal/abnormal . [facility] PasoLcusecwBJFSLYQZEQ3706-46-84 09:17:00 Test Item Value Reference Range Interpretation Comments Monocytes # (test code 0.7 See_Comment [Aut omated message] The = Monocytes #) system which generated this result tra nsmitted reference range : <=0.8. The reference r lily was not used to int erpret this result as normal/abnormal . [facility] PasoStjqwnpFHGAEFABCV0999-80-14 09:17:00 Test Item Value Reference Range Interpretation Comments Lymphocytes # (test code = Lymphocytes 1.7 1.0-5.5 #) [facility] PasoYagssldLJGBDPDOBT7716-86-47 09:17:00 Test Item Value Reference Range Interpretation Comments Segs-Bands # (test code = Segs-Bands #) 5.8 1.5-8.1 [facility] PasoBfomlulNCCODWEJGK4218-10-19 09:17:00 Test Item Value Reference Range Interpretation Comments Lymphocytes (test code = Lymphocytes) 20.7 20.0-40.0 [facility] PasoPtqgmiaJVAERJJIDJ9957-24-68 09:17:00 Test Item Value Reference Range Interpretation Comments Monocytes (test code = Monocytes) 8.4 2.0-12.0 [facility] PasoHryucjxIFSISWJXWF0818-67-41 09:17:00 Test Item Value Reference Range Interpretation Comments Eosinophils # (test code 0.1 See_Comment [A utomated message] The = Eosinophils #) system [employer] generated this result tra nsmitted reference range : <=0.5. The reference r lily was not used to int erpret this result as normal/abnormal . [facility] PasoHhftbptLIJBSTBJJJ5398-30-90 09:17:00 Test Item Value Reference Range Interpretation Comments Segs (test code = Segs) 69.3 45.0-75.0 [facility] PasoBpqjzuzXHMHQCFWHU5268-94-24 09:17:00 Test Item Value Reference Range Interpretation Comments Hgb (test code = Hgb) 11.7 12.0-16.0 [facility] PasoJgogolpVFPIPCHXSM4662-10-13 09:17:00 Test Item Value Reference Range Interpretation Comments RBC (test code = RBC) 3.81 4.20-5.40 [facility] PasoJbgspstCXGJIQZJUP9428-80-02 09:17:00 Test Item Value Reference Range Interpretation Comments WBC (test code = WBC) 8.4 3.7-10.4 [facility] PasoQvdauosGISBMRIWOP6079-61-82 09:17:00 Test Item Value Reference Range Interpretation Comments MCH (test code = MCH) 30.7 pg 27.0-31.0 [facility] PasoVgdojxeNYXSXNNQDS3674-83-65 09:17:00 Test Item Value Reference Range Interpretation Comments MCV (test code = MCV) 89.3 80.0-98.0 [place] 101186-07-18 09:17:00 Test Item Value Reference Range Interpretation Comments Hct (test code = Hct) 34.0 36.0-48.0 [place] [address]-07-18 09:17:00 Test Item Value Reference Range Interpretation Comments Platelet (test code = Platelet) 143 133-450 [facility] PasoTfipmlpSUSORXYVCJ7988-42-74 09:17:00 Test Item Value Reference Range Interpretation Comments RDW (test code = RDW) 13.2 11.5-14.5 [place] 101186-07-18 09:17:00 Test Item Value Reference Range Interpretation Comments MCHC (test code = MCHC) 34.4 32.0-36.0 [facility] PasoOggyhpkBAPZINCOXG5002-32-76 09:17:00 Test Item Value Reference Range Interpretation Comments MPV (test code = MPV) 10.3 7.4-10.4 [place] 523386-07-18 09:17:00 Test Item Value Reference Range Interpretation Comments eGFR (test code = eGFR) 94 [facility]2016-07-18 09:17:00 Test Item Value Reference Range Interpretation Comments Globulin (test code = Globulin) 3.7 2.0-4.0 [place] 523386-07-18 09:17:00 Test Item Value Reference Range Interpretation Comments ALT (test code = ALT) 24 See_Comment [Auto mated message] The system which ge nerated this result transmit shaun reference range : <=65. The reference range was not used to interpr et this result as jackeline l/abnormal. [place] 523386-07-18 09:17:00 Test Item Value Reference Range Interpretation Comments A/G Ratio (test code = A/G Ratio) 0.8 0.7-1.6 [place] 523386-07-18 09:17:00 Test Item Value Reference Range Interpretation Comments Alk Phos (test code = Alk Phos) 69 39-136 [place] 523386-07-18 09:17:00 Test Item Value Reference Range Interpretation Comments AST (test code = AST) 17 See_Comment [Auto mated message] The system which ge nerated this result transmit shaun reference range : <=37. The reference range was not used to interpr et this result as jackeline l/abnormal. [facility]2016-07-18 09:17:00 Test Item Value Reference Range Interpretation Comments Bili Total (test code = Bili Total) 0.6 0.2-1.3 [facility]2016-07-18 09:17:00 Test Item Value Reference Range Interpretation Comments Glucose Lvl (test code = Glucose Lvl) 102 70-99 [facility]2016-07-18 09:17:00 Test Item Value Reference Range Interpretation Comments BUN (test code = BUN) 10 7-22 [facility]2016-07-18 09:17:00 Test Item Value Reference Range Interpretation Comments Creatinine Lvl (test code = Creatinine 0.68 0.50-1.40 Lvl) [facility]2016-07-18 09:17:00 Test Item Value Reference Range Interpretation Comments Chloride Lvl (test code = Chloride Lvl) 107 95-109 [facility]2016-07-18 09:17:00 Test Item Value Reference Range Interpretation Comments Potassium Lvl (test code = Potassium 3.9 3.5-5.1 Lvl) [facility]2016-07-18 09:17:00 Test Item Value Reference Range Interpretation Comments CO2 (test code = CO2) 29 24-32 [facility]2016-07-18 09:17:00 Test Item Value Reference Range Interpretation Comments Sodium Lvl (test code = Sodium Lvl) 143 135-145 [facility]2016-07-18 09:17:00 Test Item Value Reference Range Interpretation Comments Total Protein (test code = Total 6.5 6.4-8.4 Protein) [facility]2016-07-18 09:17:00 Test Item Value Reference Range Interpretation Comments B/C Ratio (test code = B/C Ratio) 15 6-25 [facility]2016-07-18 09:17:00 Test Item Value Reference Range Interpretation Comments Albumin Lvl (test code = Albumin Lvl) 2.8 3.5-5.0 [place] 523386-07-18 09:17:00 Test Item Value Reference Range Interpretation Comments Calcium Lvl (test code = Calcium Lvl) 8.6 8.5-10.5 [facility]2016-07-18 09:17:00 Test Item Value Reference Range Interpretation Comments AGAP (test code = AGAP) 10.9 10.0-20.0 [facility] PasoJohmjboTPLQDUKIQM0565-14-93 09:17:00 Test Item Value Reference Range Interpretation Comments Basophils (test code = 0.3 See_Comment [Aut omated message] The Basophils) system which ge nerated this result tra nsmitted reference range : <=1.0. The reference r lily was not used to int erpret this result as normal/abnormal . [facility] PasoRvtkqggIFQBDURRLM9436-03-17 09:17:00 Test Item Value Reference Range Interpretation Comments Eosinophils (test code = 1.3 See_Comment [A utomated message] The Eosinophils) system which ge nerated this result tra nsmitted reference range : <=4.0. The reference r lily was not used to int erpret this result as normal/abnormal . [facility] PasoRpgxjivQHFORXCELJ2149-41-90 09:17:00 Test Item Value Reference Range Interpretation Comments Monocytes # (test code 0.7 See_Comment [Aut omated message] The = Monocytes #) system which generated this result tra nsmitted reference range : <=0.8. The reference r lily was not used to int erpret this result as normal/abnormal . [facility] PasoQgywzcwYPKULKTUHK0648-24-82 09:17:00 Test Item Value Reference Range Interpretation Comments Lymphocytes # (test code = Lymphocytes 1.7 1.0-5.5 #) [facility] PasoBluylcvKNUDUJHIUI0263-44-65 09:17:00 Test Item Value Reference Range Interpretation Comments Segs-Bands # (test code = Segs-Bands #) 5.8 1.5-8.1 [facility] PasoQmjqqmlKOMISEIJUI5381-84-80 09:17:00 Test Item Value Reference Range Interpretation Comments Lymphocytes (test code = Lymphocytes) 20.7 20.0-40.0 [facility] PasoSqiypnhRLWEDHXQIW4844-33-74 09:17:00 Test Item Value Reference Range Interpretation Comments Monocytes (test code = Monocytes) 8.4 2.0-12.0 [facility] PasoBfpymhfPJXCEBIDAW4789-36-48 09:17:00 Test Item Value Reference Range Interpretation Comments Eosinophils # (test code 0.1 See_Comment [A utomated message] The = Eosinophils #) system [facility] h generated this result tra nsmitted reference range : <=0.5. The reference r lily was not used to int erpret this result as normal/abnormal . [facility] PasoKtelkloPYBTQHJWJR0990-34-37 09:17:00 Test Item Value Reference Range Interpretation Comments Segs (test code = Segs) 69.3 45.0-75.0 [facility] PasoEwmiemjBULCCPEXYX2512-67-44 09:17:00 Test Item Value Reference Range Interpretation Comments Hgb (test code = Hgb) 11.7 12.0-16.0 [facility] PasoVwlpslpUWNGHCABXE4962-11-79 09:17:00 Test Item Value Reference Range Interpretation Comments RBC (test code = RBC) 3.81 4.20-5.40 [facility] PasoNppxkhsCFETRNIMIB3194-07-03 09:17:00 Test Item Value Reference Range Interpretation Comments WBC (test code = WBC) 8.4 3.7-10.4 [facility] PasoSrhvwlqPQPTMFJFUY7188-15-54 09:17:00 Test Item Value Reference Range Interpretation Comments MCH (test code = MCH) 30.7 pg 27.0-31.0 [facility] PasoPpnsyztQJULRIJYZN7042-01-17 09:17:00 Test Item Value Reference Range Interpretation Comments MCV (test code = MCV) 89.3 80.0-98.0 [facility] PasoXtbgmfaOGBMHZPADP5656-66-17 09:17:00 Test Item Value Reference Range Interpretation Comments Hct (test code = Hct) 34.0 36.0-48.0 [facility] PasoZvftdskMDWXEYRVCV2169-39-04 09:17:00 Test Item Value Reference Range Interpretation Comments Platelet (test code = Platelet) 143 133-450 [facility] PasoBuxrnygXDVKPPTVFI0718-35-44 09:17:00 Test Item Value Reference Range Interpretation Comments RDW (test code = RDW) 13.2 11.5-14.5 [facility] PasoWqvcfngROORHXLBFU2515-22-96 09:17:00 Test Item Value Reference Range Interpretation Comments MCHC (test code = MCHC) 34.4 32.0-36.0 [facility] PasoVmfojweRLWUAYPZWJ7244-07-81 09:17:00 Test Item Value Reference Range Interpretation Comments MPV (test code = MPV) 10.3 7.4-10.4 [facility]2016-07-18 09:17:00 Test Item Value Reference Range Interpretation Comments eGFR (test code = eGFR) 94 [facility]2016-07-18 09:17:00 Test Item Value Reference Range Interpretation Comments Globulin (test code = Globulin) 3.7 2.0-4.0 [place] 523386-07-18 09:17:00 Test Item Value Reference Range Interpretation Comments ALT (test code = ALT) 24 See_Comment [Auto mated message] The system which ge nerated this result transmit shaun reference range : <=65. The reference range was not used to interpr et this result as jackeline l/abnormal. [place] 523386-07-18 09:17:00 Test Item Value Reference Range Interpretation Comments A/G Ratio (test code = A/G Ratio) 0.8 0.7-1.6 [place] 523386-07-18 09:17:00 Test Item Value Reference Range Interpretation Comments Alk Phos (test code = Alk Phos) 69 39-136 [facility]2016-07-18 09:17:00 Test Item Value Reference Range Interpretation Comments AST (test code = AST) 17 See_Comment [Auto mated message] The system which ge nerated this result transmit shaun reference range : <=37. The reference range was not used to interpr et this result as jackeline l/abnormal. [facility]2016-07-18 09:17:00 Test Item Value Reference Range Interpretation Comments Bili Total (test code = Bili Total) 0.6 0.2-1.3 [place] 523386-07-18 09:17:00 Test Item Value Reference Range Interpretation Comments Glucose Lvl (test code = Glucose Lvl) 102 70-99 [facility]2016-07-18 09:17:00 Test Item Value Reference Range Interpretation Comments BUN (test code = BUN) 10 7-22 [place] 523386-07-18 09:17:00 Test Item Value Reference Range Interpretation Comments Creatinine Lvl (test code = Creatinine 0.68 0.50-1.40 Lvl) [place] 523386-07-18 09:17:00 Test Item Value Reference Range Interpretation Comments Chloride Lvl (test code = Chloride Lvl) 107 95-109 [place] 523386-07-18 09:17:00 Test Item Value Reference Range Interpretation Comments Potassium Lvl (test code = Potassium 3.9 3.5-5.1 Lvl) [place] 523386-07-18 09:17:00 Test Item Value Reference Range Interpretation Comments CO2 (test code = CO2) 29 24-32 [place] 523386-07-18 09:17:00 Test Item Value Reference Range Interpretation Comments Sodium Lvl (test code = Sodium Lvl) 143 135-145 [place] 523386-07-18 09:17:00 Test Item Value Reference Range Interpretation Comments Total Protein (test code = Total 6.5 6.4-8.4 Protein) [facility]2016-07-18 09:17:00 Test Item Value Reference Range Interpretation Comments B/C Ratio (test code = B/C Ratio) 15 6-25 [place] 523386-07-18 09:17:00 Test Item Value Reference Range Interpretation Comments Albumin Lvl (test code = Albumin Lvl) 2.8 3.5-5.0 [place] 523386-07-18 09:17:00 Test Item Value Reference Range Interpretation Comments Calcium Lvl (test code = Calcium Lvl) 8.6 8.5-10.5 [place] 523386-07-18 09:17:00 Test Item Value Reference Range Interpretation Comments AGAP (test code = AGAP) 10.9 10.0-20.0 [place] 101186-07-18 09:17:00 Test Item Value Reference Range Interpretation Comments Basophils (test code = 0.3 See_Comment [Aut omated message] The Basophils) system which nerated this result tra nsmitted reference range : <=1.0. The reference r lily was not used to int erpret this result as normal/abnormal . [facility] PasoVmzyjcwVQNPSIWQLE7239-04-35 09:17:00 Test Item Value Reference Range Interpretation Comments Eosinophils (test code = 1.3 See_Comment [A utomated message] The Eosinophils) system which ge nerated this result tra nsmitted reference range : <=4.0. The reference r lily was not used to int erpret this result as normal/abnormal . [place] 101186-07-18 09:17:00 Test Item Value Reference Range Interpretation Comments Monocytes # (test code 0.7 See_Comment [Aut omated message] The = Monocytes #) system which generated this result tra nsmitted reference range : <=0.8. The reference r lily was not used to int erpret this result as normal/abnormal . [facility] PasoAxzchcdUIMRUJCRDM2975-94-87 09:17:00 Test Item Value Reference Range Interpretation Comments Lymphocytes # (test code = Lymphocytes 1.7 1.0-5.5 #) [facility] PasoPbtmdqsWDKVZVLILD5538-82-31 09:17:00 Test Item Value Reference Range Interpretation Comments Segs-Bands # (test code = Segs-Bands #) 5.8 1.5-8.1 [facility] PasoXvxecfeQKGNXVDXFO7455-45-47 09:17:00 Test Item Value Reference Range Interpretation Comments Lymphocytes (test code = Lymphocytes) 20.7 20.0-40.0 [facility] PasoHxflvtwSYLHHBHMSH4609-72-37 09:17:00 Test Item Value Reference Range Interpretation Comments Monocytes (test code = Monocytes) 8.4 2.0-12.0 [facility] PasoXgvlmhsXWZAAFGRMR8121-69-34 09:17:00 Test Item Value Reference Range Interpretation Comments Eosinophils # (test code 0.1 See_Comment [A utomated message] The = Eosinophils #) system whic h generated this result tra nsmitted reference range : <=0.5. The reference r lily was not used to int erpret this result as normal/abnormal . [facility] PasoVjvumhoHIIAREWFVX3213-24-07 09:17:00 Test Item Value Reference Range Interpretation Comments Segs (test code = Segs) 69.3 45.0-75.0 [facility] PasoYyxwwrrQCJSHHJWEW8883-02-25 09:17:00 Test Item Value Reference Range Interpretation Comments Hgb (test code = Hgb) 11.7 12.0-16.0 [facility] PasoAjraylrPWXDODXTCQ1550-74-02 09:17:00 Test Item Value Reference Range Interpretation Comments RBC (test code = RBC) 3.81 4.20-5.40 [facility] PasoPellqoyFZTBEJSHHN6803-96-07 09:17:00 Test Item Value Reference Range Interpretation Comments WBC (test code = WBC) 8.4 3.7-10.4 [facility] PasoKorxelhAMJHFJRWYG4847-93-18 09:17:00 Test Item Value Reference Range Interpretation Comments MCH (test code = MCH) 30.7 pg 27.0-31.0 [facility] PasoRwfcermWVDNWWYHEJ7858-68-19 09:17:00 Test Item Value Reference Range Interpretation Comments MCV (test code = MCV) 89.3 80.0-98.0 [facility] PasoMelbwfnGCIKMYEMUN8993-43-15 09:17:00 Test Item Value Reference Range Interpretation Comments Hct (test code = Hct) 34.0 36.0-48.0 [facility] PasoNsyolmqAASFYORTTY1253-76-26 09:17:00 Test Item Value Reference Range Interpretation Comments Platelet (test code = Platelet) 143 133-450 [facility] PasoOqcvyjpDCJOSGSAZD4864-94-64 09:17:00 Test Item Value Reference Range Interpretation Comments RDW (test code = RDW) 13.2 11.5-14.5 [place] 101186-07-18 09:17:00 Test Item Value Reference Range Interpretation Comments MCHC (test code = MCHC) 34.4 32.0-36.0 [facility]HuqozofOMHJLKTVIL5473-33-21 09:17:00 Test Item Value Reference Range Interpretation Comments MPV (test code = MPV) 10.3 7.4-10.4 [place] 523386-07-18 09:17:00 Test Item Value Reference Range Interpretation Comments eGFR (test code = eGFR) 94 [facility]2016-07-18 09:17:00 Test Item Value Reference Range Interpretation Comments Globulin (test code = Globulin) 3.7 2.0-4.0 [facility]2016-07-18 09:17:00 Test Item Value Reference Range Interpretation Comments ALT (test code = ALT) 24 See_Comment [Auto mated message] The system which ge nerated this result transmit shaun reference range : <=65. The reference range was not used to interpr et this result as jackeline l/abnormal. [place] 523386-07-18 09:17:00 Test Item Value Reference Range Interpretation Comments A/G Ratio (test code = A/G Ratio) 0.8 0.7-1.6 [place] 523386-07-18 09:17:00 Test Item Value Reference Range Interpretation Comments Alk Phos (test code = Alk Phos) 69 39-136 [facility]2016-07-18 09:17:00 Test Item Value Reference Range Interpretation Comments AST (test code = AST) 17 See_Comment [Auto mated message] The system which ge nerated this result transmit shaun reference range : <=37. The reference range was not used to interpr et this result as jackeline l/abnormal. [facility]2016-07-18 09:17:00 Test Item Value Reference Range Interpretation Comments Bili Total (test code = Bili Total) 0.6 0.2-1.3 [facility]2016-07-18 09:17:00 Test Item Value Reference Range Interpretation Comments Glucose Lvl (test code = Glucose Lvl) 102 70-99 [facility]2016-07-18 09:17:00 Test Item Value Reference Range Interpretation Comments BUN (test code = BUN) 10 7-22 [facility]2016-07-18 09:17:00 Test Item Value Reference Range Interpretation Comments Creatinine Lvl (test code = Creatinine 0.68 0.50-1.40 Lvl) [facility]2016-07-18 09:17:00 Test Item Value Reference Range Interpretation Comments Chloride Lvl (test code = Chloride Lvl) 107 95-109 [facility]2016-07-18 09:17:00 Test Item Value Reference Range Interpretation Comments Potassium Lvl (test code = Potassium 3.9 3.5-5.1 Lvl) [facility]2016-07-18 09:17:00 Test Item Value Reference Range Interpretation Comments CO2 (test code = CO2) 29 24-32 [facility]2016-07-18 09:17:00 Test Item Value Reference Range Interpretation Comments Sodium Lvl (test code = Sodium Lvl) 143 135-145 [facility]2016-07-18 09:17:00 Test Item Value Reference Range Interpretation Comments Total Protein (test code = Total 6.5 6.4-8.4 Protein) [facility]2016-07-18 09:17:00 Test Item Value Reference Range Interpretation Comments B/C Ratio (test code = B/C Ratio) 15 6-25 [place] 523386-07-18 09:17:00 Test Item Value Reference Range Interpretation Comments Albumin Lvl (test code = Albumin Lvl) 2.8 3.5-5.0 [facility]2016-07-18 09:17:00 Test Item Value Reference Range Interpretation Comments Calcium Lvl (test code = Calcium Lvl) 8.6 8.5-10.5 [facility]2016-07-18 09:17:00 Test Item Value Reference Range Interpretation Comments AGAP (test code = AGAP) 10.9 10.0-20.0 [facility] PasoSwdlsgpQPASANQYQM7341-47-75 09:17:00 Test Item Value Reference Range Interpretation Comments Basophils (test code = 0.3 See_Comment [Aut omated message] The Basophils) system which ge nerated this result tra nsmitted reference range : <=1.0. The reference r lily was not used to int erpret this result as normal/abnormal . [facility] PasoVppuyikLWQMLVWBVN0618-66-00 09:17:00 Test Item Value Reference Range Interpretation Comments Eosinophils (test code = 1.3 See_Comment [A utomated message] The Eosinophils) system which ge nerated this result tra nsmitted reference range : <=4.0. The reference r lily was not used to int erpret this result as normal/abnormal . [facility] PasoMmjcuexUQFABBDJGT5517-30-39 09:17:00 Test Item Value Reference Range Interpretation Comments Monocytes # (test code 0.7 See_Comment [Aut omated message] The = Monocytes #) system which generated this result tra nsmitted reference range : <=0.8. The reference r lily was not used to int erpret this result as normal/abnormal . [facility] PasoWxzcjflTDMCFJFNWC4639-00-98 09:17:00 Test Item Value Reference Range Interpretation Comments Lymphocytes # (test code = Lymphocytes 1.7 1.0-5.5 #) [facility] PasoRodttfzGEGOWXKPKZ3787-13-92 09:17:00 Test Item Value Reference Range Interpretation Comments Segs-Bands # (test code = Segs-Bands #) 5.8 1.5-8.1 [facility] PasoZjqjialLTNTPBRTST7585-98-47 09:17:00 Test Item Value Reference Range Interpretation Comments Lymphocytes (test code = Lymphocytes) 20.7 20.0-40.0 [facility] PasoVnsswkbLBRFOARPID8828-57-17 09:17:00 Test Item Value Reference Range Interpretation Comments Monocytes (test code = Monocytes) 8.4 2.0-12.0 [place] 101186-07-18 09:17:00 Test Item Value Reference Range Interpretation Comments Eosinophils # (test code 0.1 See_Comment [A utomated message] The = Eosinophils #) system whic h generated this result tra nsmitted reference range : <=0.5. The reference r lily was not used to int erpret this result as normal/abnormal . [facility] PasoVyllzmiNBRDZKYQPT4082-72-84 09:17:00 Test Item Value Reference Range Interpretation Comments Segs (test code = Segs) 69.3 45.0-75.0 [facility] PasoUspddgcAXIOBPNBRL2498-93-86 09:17:00 Test Item Value Reference Range Interpretation Comments Hgb (test code = Hgb) 11.7 12.0-16.0 [facility] PasoMxkfebdXJQFIZKEQY1574-28-47 09:17:00 Test Item Value Reference Range Interpretation Comments RBC (test code = RBC) 3.81 4.20-5.40 [facility] PasoTqrdmcdBUPDZRWZNI9016-22-51 09:17:00 Test Item Value Reference Range Interpretation Comments WBC (test code = WBC) 8.4 3.7-10.4 [facility] PasoHbjnmceMUGCPHCWCI3194-10-61 09:17:00 Test Item Value Reference Range Interpretation Comments MCH (test code = MCH) 30.7 pg 27.0-31.0 [facility] PasoVfrxtphNVLYTTUNWM1961-15-04 09:17:00 Test Item Value Reference Range Interpretation Comments MCV (test code = MCV) 89.3 80.0-98.0 [facility] PasoQiawxzfIPFYHFRQHP9722-52-11 09:17:00 Test Item Value Reference Range Interpretation Comments Hct (test code = Hct) 34.0 36.0-48.0 [facility] PasoDnoqxcvLGEXREXRKV2559-97-65 09:17:00 Test Item Value Reference Range Interpretation Comments Platelet (test code = Platelet) 143 133-450 [facility] PasoQuicygaWZKGOYVVSM2547-09-48 09:17:00 Test Item Value Reference Range Interpretation Comments RDW (test code = RDW) 13.2 11.5-14.5 [facility] PasoNvlxjqdVUUVNKUNOL5044-22-23 09:17:00 Test Item Value Reference Range Interpretation Comments MCHC (test code = MCHC) 34.4 32.0-36.0 [facility] PasoNhvuioyKQNDNHTCIJ4669-27-15 09:17:00 Test Item Value Reference Range Interpretation Comments MPV (test code = MPV) 10.3 7.4-10.4 [place] 523386-07-18 09:17:00 Test Item Value Reference Range Interpretation Comments eGFR (test code = eGFR) 94 [facility]2016-07-18 09:17:00 Test Item Value Reference Range Interpretation Comments Globulin (test code = Globulin) 3.7 2.0-4.0 [place] 523386-07-18 09:17:00 Test Item Value Reference Range Interpretation Comments ALT (test code = ALT) 24 See_Comment [Auto mated message] The system which ge nerated this result transmit shaun reference range : <=65. The reference range was not used to interpr et this result as jackeline l/abnormal. [place] 523386-07-18 09:17:00 Test Item Value Reference Range Interpretation Comments A/G Ratio (test code = A/G Ratio) 0.8 0.7-1.6 [place] 523386-07-18 09:17:00 Test Item Value Reference Range Interpretation Comments Alk Phos (test code = Alk Phos) 69 39-136 [facility]2016-07-18 09:17:00 Test Item Value Reference Range Interpretation Comments AST (test code = AST) 17 See_Comment [Auto mated message] The system which ge nerated this result transmit shaun reference range : <=37. The reference range was not used to interpr et this result as jackeline l/abnormal. [facility]2016-07-18 09:17:00 Test Item Value Reference Range Interpretation Comments Bili Total (test code = Bili Total) 0.6 0.2-1.3 [place] 523386-07-18 09:17:00 Test Item Value Reference Range Interpretation Comments Glucose Lvl (test code = Glucose Lvl) 102 70-99 [facility]2016-07-18 09:17:00 Test Item Value Reference Range Interpretation Comments BUN (test code = BUN) 10 7-22 [place] 523386-07-18 09:17:00 Test Item Value Reference Range Interpretation Comments Creatinine Lvl (test code = Creatinine 0.68 0.50-1.40 Lvl) [place] 523386-07-18 09:17:00 Test Item Value Reference Range Interpretation Comments Chloride Lvl (test code = Chloride Lvl) 107 95-109 [facility]2016-07-18 09:17:00 Test Item Value Reference Range Interpretation Comments Potassium Lvl (test code = Potassium 3.9 3.5-5.1 Lvl) [place] 523386-07-18 09:17:00 Test Item Value Reference Range Interpretation Comments CO2 (test code = CO2) 29 24-32 [place] 523386-07-18 09:17:00 Test Item Value Reference Range Interpretation Comments Sodium Lvl (test code = Sodium Lvl) 143 135-145 [facility]2016-07-18 09:17:00 Test Item Value Reference Range Interpretation Comments Total Protein (test code = Total 6.5 6.4-8.4 Protein) [facility]2016-07-18 09:17:00 Test Item Value Reference Range Interpretation Comments B/C Ratio (test code = B/C Ratio) 15 6-25 [place] 523386-07-18 09:17:00 Test Item Value Reference Range Interpretation Comments Albumin Lvl (test code = Albumin Lvl) 2.8 3.5-5.0 [place] 523386-07-18 09:17:00 Test Item Value Reference Range Interpretation Comments Calcium Lvl (test code = Calcium Lvl) 8.6 8.5-10.5 [facility]2016-07-18 09:17:00 Test Item Value Reference Range Interpretation Comments AGAP (test code = AGAP) 10.9 10.0-20.0 [facility] PasoDtkzkuuPPDFFWTQWT5129-65-91 09:17:00 Test Item Value Reference Range Interpretation Comments Basophils (test code = 0.3 See_Comment [Aut omated message] The Basophils) system which ge nerated this result tra nsmitted reference range : <=1.0. The reference r lily was not used to int erpret this result as normal/abnormal . [facility] PasoAjsolorCODITWRTJT5510-67-41 09:17:00 Test Item Value Reference Range Interpretation Comments Eosinophils (test code = 1.3 See_Comment [A utomated message] The Eosinophils) system which ge nerated this result tra nsmitted reference range : <=4.0. The reference r lily was not used to int erpret this result as normal/abnormal . [facility] PasoHtqlmttIXSQHNJTKH8581-32-01 09:17:00 Test Item Value Reference Range Interpretation Comments Monocytes # (test code 0.7 See_Comment [Aut omated message] The = Monocytes #) system which generated this result tra nsmitted reference range : <=0.8. The reference r lily was not used to int erpret this result as normal/abnormal . [facility] PasoGifadbqVOFNYMBABM7895-18-36 09:17:00 Test Item Value Reference Range Interpretation Comments Lymphocytes # (test code = Lymphocytes 1.7 1.0-5.5 #) [facility] PasoQpxpvdwJKJRFBVISM7575-30-42 09:17:00 Test Item Value Reference Range Interpretation Comments Segs-Bands # (test code = Segs-Bands #) 5.8 1.5-8.1 [facility] PasoSvflowcTOIMALJXWD8187-49-15 09:17:00 Test Item Value Reference Range Interpretation Comments Lymphocytes (test code = Lymphocytes) 20.7 20.0-40.0 [facility] PasoXnsigckMKPFTLCRVT3080-41-28 09:17:00 Test Item Value Reference Range Interpretation Comments Monocytes (test code = Monocytes) 8.4 2.0-12.0 [facility] PasoXqhifwhKBZCSUTART8176-23-94 09:17:00 Test Item Value Reference Range Interpretation Comments Eosinophils # (test code 0.1 See_Comment [A utomated message] The = Eosinophils #) system whic h generated this result tra nsmitted reference range : <=0.5. The reference r lily was not used to int erpret this result as normal/abnormal . [facility] PasoDeauproKGNJYLCNIQ1250-74-76 09:17:00 Test Item Value Reference Range Interpretation Comments Segs (test code = Segs) 69.3 45.0-75.0 [facility] PasoZpkpbyyLPPLIIXJHL9764-20-55 09:17:00 Test Item Value Reference Range Interpretation Comments Hgb (test code = Hgb) 11.7 12.0-16.0 [facility] PasoDwnkphiJJIUDBPFKH3217-67-95 09:17:00 Test Item Value Reference Range Interpretation Comments RBC (test code = RBC) 3.81 4.20-5.40 [facility] PasoEbhnujtBTGLCRRTZQ5395-46-08 09:17:00 Test Item Value Reference Range Interpretation Comments WBC (test code = WBC) 8.4 3.7-10.4 [facility] PasoLchznqtAXIEUSKRBH8495-01-01 09:17:00 Test Item Value Reference Range Interpretation Comments MCH (test code = MCH) 30.7 pg 27.0-31.0 [facility] PasoVnhipieXKVQJCQZII4850-13-13 09:17:00 Test Item Value Reference Range Interpretation Comments MCV (test code = MCV) 89.3 80.0-98.0 [facility] PasoTieawxxQGUHGUQUWT2438-29-41 09:17:00 Test Item Value Reference Range Interpretation Comments Hct (test code = Hct) 34.0 36.0-48.0 [facility] PasoVfydypdDCKIKFQHCT5176-19-76 09:17:00 Test Item Value Reference Range Interpretation Comments Platelet (test code = Platelet) 143 133-450 [facility] PasoGalixqfAAIJGFFHVU9931-31-01 09:17:00 Test Item Value Reference Range Interpretation Comments RDW (test code = RDW) 13.2 11.5-14.5 [facility] PasoVutoagaRKPPVIMPQC3095-49-61 09:17:00 Test Item Value Reference Range Interpretation Comments MCHC (test code = MCHC) 34.4 32.0-36.0 [facility] PasoGwefvrnAGKKKFCYCN6349-72-67 09:17:00 Test Item Value Reference Range Interpretation Comments MPV (test code = MPV) 10.3 7.4-10.4 [facility]2016-07-18 09:17:00 Test Item Value Reference Range Interpretation Comments eGFR (test code = eGFR) 94 [facility]2016-07-18 09:17:00 Test Item Value Reference Range Interpretation Comments Globulin (test code = Globulin) 3.7 2.0-4.0 [facility]2016-07-18 09:17:00 Test Item Value Reference Range Interpretation Comments ALT (test code = ALT) 24 See_Comment [Auto mated message] The system which ge nerated this result transmit shaun reference range : <=65. The reference range was not used to interpr et this result as jackeline l/abnormal. [place] 523386-07-18 09:17:00 Test Item Value Reference Range Interpretation Comments A/G Ratio (test code = A/G Ratio) 0.8 0.7-1.6 [facility]2016-07-18 09:17:00 Test Item Value Reference Range Interpretation Comments Alk Phos (test code = Alk Phos) 69 39-136 [facility]2016-07-18 09:17:00 Test Item Value Reference Range Interpretation Comments AST (test code = AST) 17 See_Comment [Auto mated message] The system which ge nerated this result transmit shaun reference range : <=37. The reference range was not used to interpr et this result as jackeline l/abnormal. [facility]2016-07-18 09:17:00 Test Item Value Reference Range Interpretation Comments Bili Total (test code = Bili Total) 0.6 0.2-1.3 [facility]2016-07-18 09:17:00 Test Item Value Reference Range Interpretation Comments Glucose Lvl (test code = Glucose Lvl) 102 70-99 [facility]2016-07-18 09:17:00 Test Item Value Reference Range Interpretation Comments BUN (test code = BUN) 10 7-22 [facility]2016-07-18 09:17:00 Test Item Value Reference Range Interpretation Comments Creatinine Lvl (test code = Creatinine 0.68 0.50-1.40 Lvl) [facility]2016-07-18 09:17:00 Test Item Value Reference Range Interpretation Comments Chloride Lvl (test code = Chloride Lvl) 107 95-109 [facility]2016-07-18 09:17:00 Test Item Value Reference Range Interpretation Comments Potassium Lvl (test code = Potassium 3.9 3.5-5.1 Lvl) [facility]2016-07-18 09:17:00 Test Item Value Reference Range Interpretation Comments CO2 (test code = CO2) 29 24-32 [place] [address]386-07-18 09:17:00 Test Item Value Reference Range Interpretation Comments Sodium Lvl (test code = Sodium Lvl) 143 135-145 [facility]2016-07-18 09:17:00 Test Item Value Reference Range Interpretation Comments Total Protein (test code = Total 6.5 6.4-8.4 Protein) [facility]2016-07-18 09:17:00 Test Item Value Reference Range Interpretation Comments B/C Ratio (test code = B/C Ratio) 15 6-25 [place] 523386-07-18 09:17:00 Test Item Value Reference Range Interpretation Comments Albumin Lvl (test code = Albumin Lvl) 2.8 3.5-5.0 [facility]2016-07-18 09:17:00 Test Item Value Reference Range Interpretation Comments Calcium Lvl (test code = Calcium Lvl) 8.6 8.5-10.5 [facility]2016-07-18 09:17:00 Test Item Value Reference Range Interpretation Comments AGAP (test code = AGAP) 10.9 10.0-20.0 [facility] PasoWxnerhfGEFFDLFBXU4064-88-41 09:17:00 Test Item Value Reference Range Interpretation Comments Basophils (test code = 0.3 See_Comment [Aut omated message] The Basophils) system which ge nerated this result tra nsmitted reference range : <=1.0. The reference r lily was not used to int erpret this result as normal/abnormal . [facility] PasoDtjbyrpQLCWJMSVHU6199-35-78 09:17:00 Test Item Value Reference Range Interpretation Comments Eosinophils (test code = 1.3 See_Comment [A utomated message] The Eosinophils) system which ge nerated this result tra nsmitted reference range : <=4.0. The reference r lily was not used to int erpret this result as normal/abnormal . [facility] PasoXbqvrodNOMEPLGGOK2230-93-26 09:17:00 Test Item Value Reference Range Interpretation Comments Monocytes # (test code 0.7 See_Comment [Aut omated message] The = Monocytes #) system which generated this result tra nsmitted reference range : <=0.8. The reference r lily was not used to int erpret this result as normal/abnormal . [facility] PasoIsyfqjsAONREDOVVU6697-26-23 09:17:00 Test Item Value Reference Range Interpretation Comments Lymphocytes # (test code = Lymphocytes 1.7 1.0-5.5 #) [facility] PasoAgjnpnkJRAZBGZYQG9263-19-90 09:17:00 Test Item Value Reference Range Interpretation Comments Segs-Bands # (test code = Segs-Bands #) 5.8 1.5-8.1 [facility] PasoTklpqusGKEZEXISPW1684-56-85 09:17:00 Test Item Value Reference Range Interpretation Comments Lymphocytes (test code = Lymphocytes) 20.7 20.0-40.0 [facility] PasoSubppaeFSCCQILRAF0918-70-22 09:17:00 Test Item Value Reference Range Interpretation Comments Monocytes (test code = Monocytes) 8.4 2.0-12.0 [facility] PasoRmfsvmpNIFAYIIEIR4431-43-28 09:17:00 Test Item Value Reference Range Interpretation Comments Eosinophils # (test code 0.1 See_Comment [A utomated message] The = Eosinophils #) system whic h generated this result tra nsmitted reference range : <=0.5. The reference r lily was not used to int erpret this result as normal/abnormal . [facility]2016-07-18 09:17:00 Test Item Value Reference Range Interpretation Comments eGFR (test code = eGFR) 94 [facility]2016-07-18 09:17:00 Test Item Value Reference Range Interpretation Comments Globulin (test code = Globulin) 3.7 2.0-4.0 [facility] PasoDzkmuovAHLQDJHCHG8555-39-69 09:17:00 Test Item Value Reference Range Interpretation Comments Segs (test code = Segs) 69.3 45.0-75.0 [facility]2016-07-18 09:17:00 Test Item Value Reference Range Interpretation Comments ALT (test code = ALT) 24 See_Comment [Auto mated message] The system which ge nerated this result transmit shaun reference range : <=65. The reference range was not used to interpr et this result as jackeline l/abnormal. [facility]2016-07-18 09:17:00 Test Item Value Reference Range Interpretation Comments A/G Ratio (test code = A/G Ratio) 0.8 0.7-1.6 [facility]2016-07-18 09:17:00 Test Item Value Reference Range Interpretation Comments Alk Phos (test code = Alk Phos) 69 39-136 [facility]2016-07-18 09:17:00 Test Item Value Reference Range Interpretation Comments AST (test code = AST) 17 See_Comment [Auto mated message] The system which ge nerated this result transmit shaun reference range : <=37. The reference range was not used to interpr et this result as jackeline l/abnormal. [facility]2016-07-18 09:17:00 Test Item Value Reference Range Interpretation Comments Bili Total (test code = Bili Total) 0.6 0.2-1.3 [facility]2016-07-18 09:17:00 Test Item Value Reference Range Interpretation Comments Glucose Lvl (test code = Glucose Lvl) 102 70-99 [facility]2016-07-18 09:17:00 Test Item Value Reference Range Interpretation Comments BUN (test code = BUN) 10 7-22 [facility]2016-07-18 09:17:00 Test Item Value Reference Range Interpretation Comments Creatinine Lvl (test code = Creatinine 0.68 0.50-1.40 Lvl) [facility]2016-07-18 09:17:00 Test Item Value Reference Range Interpretation Comments Chloride Lvl (test code = Chloride Lvl) 107 95-109 [facility]2016-07-18 09:17:00 Test Item Value Reference Range Interpretation Comments Potassium Lvl (test code = Potassium 3.9 3.5-5.1 Lvl) [facility] PasoWrerwdaAVUAOAANZW6225-41-34 09:17:00 Test Item Value Reference Range Interpretation Comments Hgb (test code = Hgb) 11.7 12.0-16.0 [facility]2016-07-18 09:17:00 Test Item Value Reference Range Interpretation Comments CO2 (test code = CO2) 29 24-32 [facility]2016-07-18 09:17:00 Test Item Value Reference Range Interpretation Comments Sodium Lvl (test code = Sodium Lvl) 143 135-145 [facility]2016-07-18 09:17:00 Test Item Value Reference Range Interpretation Comments Total Protein (test code = Total 6.5 6.4-8.4 Protein) [facility]2016-07-18 09:17:00 Test Item Value Reference Range Interpretation Comments B/C Ratio (test code = B/C Ratio) 15 6-25 [facility]2016-07-18 09:17:00 Test Item Value Reference Range Interpretation Comments Albumin Lvl (test code = Albumin Lvl) 2.8 3.5-5.0 [facility]2016-07-18 09:17:00 Test Item Value Reference Range Interpretation Comments Calcium Lvl (test code = Calcium Lvl) 8.6 8.5-10.5 [place] [address]386-07-18 09:17:00 Test Item Value Reference Range Interpretation Comments AGAP (test code = AGAP) 10.9 10.0-20.0 [facility] PasoLnylajyICDZQNKPCT6871-12-42 09:17:00 Test Item Value Reference Range Interpretation Comments Basophils (test code = 0.3 See_Comment [Aut omated message] The Basophils) system which ge nerated this result tra nsmitted reference range : <=1.0. The reference r lily was not used to int erpret this result as normal/abnormal . [facility] PasoDqceihlWGYDESQQDT0058-34-74 09:17:00 Test Item Value Reference Range Interpretation Comments Eosinophils (test code = 1.3 See_Comment [A utomated message] The Eosinophils) system which ge nerated this result tra nsmitted reference range : <=4.0. The reference r lily was not used to int erpret this result as normal/abnormal . [facility] PasoIwyoffmXHFJAGIOOL4409-39-13 09:17:00 Test Item Value Reference Range Interpretation Comments Monocytes # (test code 0.7 See_Comment [Aut omated message] The = Monocytes #) system which generated this result tra nsmitted reference range : <=0.8. The reference r lily was not used to int erpret this result as normal/abnormal . [facility] PasoColleykWSYNOBDTKV7311-30-27 09:17:00 Test Item Value Reference Range Interpretation Comments RBC (test code = RBC) 3.81 4.20-5.40 [facility] PasoThxwzlxSYVMSYEBMZ9940-02-84 09:17:00 Test Item Value Reference Range Interpretation Comments Lymphocytes # (test code = Lymphocytes 1.7 1.0-5.5 #) [facility] PasoZsvkzeeZYHBMHCGLQ9565-93-68 09:17:00 Test Item Value Reference Range Interpretation Comments Segs-Bands # (test code = Segs-Bands #) 5.8 1.5-8.1 [facility] PasoFwnvouzRLWVKRZXYY3963-71-21 09:17:00 Test Item Value Reference Range Interpretation Comments Lymphocytes (test code = Lymphocytes) 20.7 20.0-40.0 [facility] PasoTwumwlmBKRZIHJAAM7210-03-30 09:17:00 Test Item Value Reference Range Interpretation Comments Monocytes (test code = Monocytes) 8.4 2.0-12.0 [place] 101186-07-18 09:17:00 Test Item Value Reference Range Interpretation Comments Eosinophils # (test code 0.1 See_Comment [A utomated message] The = Eosinophils #) system whic h generated this result tra nsmitted reference range : <=0.5. The reference r lily was not used to int erpret this result as normal/abnormal . [facility] PasoUuwghsdDKPHARFVBT1988-88-04 09:17:00 Test Item Value Reference Range Interpretation Comments Segs (test code = Segs) 69.3 45.0-75.0 [facility] PasoPnsnmnzFEMONNEYIZ8209-90-47 09:17:00 Test Item Value Reference Range Interpretation Comments Hgb (test code = Hgb) 11.7 12.0-16.0 [facility] PasoXsodnhtUODWDPXYSD0912-64-40 09:17:00 Test Item Value Reference Range Interpretation Comments RBC (test code = RBC) 3.81 4.20-5.40 [facility] PasoQpwljowVEFAAQMVJK6012-61-62 09:17:00 Test Item Value Reference Range Interpretation Comments WBC (test code = WBC) 8.4 3.7-10.4 [facility] PasoEhevgbhRKGOQQOPHJ4928-42-26 09:17:00 Test Item Value Reference Range Interpretation Comments MCH (test code = MCH) 30.7 pg 27.0-31.0 [facility] PasoSvbpkcxANJLREZEUL8763-06-89 09:17:00 Test Item Value Reference Range Interpretation Comments WBC (test code = WBC) 8.4 3.7-10.4 [facility] PasoEiigzldFHUCBPIVWZ3788-75-36 09:17:00 Test Item Value Reference Range Interpretation Comments MCV (test code = MCV) 89.3 80.0-98.0 [facility] PasoTgxolcrYQMSVEGDZA8712-29-00 09:17:00 Test Item Value Reference Range Interpretation Comments Hct (test code = Hct) 34.0 36.0-48.0 [facility] PasoRmowejfJFTIFTTGDD9234-32-31 09:17:00 Test Item Value Reference Range Interpretation Comments Platelet (test code = Platelet) 143 133-450 [facility] PasoCupjmzjJEMLTIEEAG2992-10-65 09:17:00 Test Item Value Reference Range Interpretation Comments RDW (test code = RDW) 13.2 11.5-14.5 [facility] PasoAucmvjuRHXJHOPSCX1278-09-83 09:17:00 Test Item Value Reference Range Interpretation Comments MCHC (test code = MCHC) 34.4 32.0-36.0 [facility] PasoWhjoclkQEOOHXRHTP9208-48-96 09:17:00 Test Item Value Reference Range Interpretation Comments MPV (test code = MPV) 10.3 7.4-10.4 [facility] PasoKigizvvXTLVEGVLFB1302-53-93 09:17:00 Test Item Value Reference Range Interpretation Comments MCH (test code = MCH) 30.7 pg 27.0-31.0 [facility] PasoNzgkqjgATDYOXNIUH3698-81-38 09:17:00 Test Item Value Reference Range Interpretation Comments MCV (test code = MCV) 89.3 80.0-98.0 [facility] PasoEbbglyhAMGZJZPBAR9632-37-73 09:17:00 Test Item Value Reference Range Interpretation Comments Hct (test code = Hct) 34.0 36.0-48.0 [facility] PasoCfnyeyhZPOELGTASF0501-57-49 09:17:00 Test Item Value Reference Range Interpretation Comments Platelet (test code = Platelet) 143 133-450 [facility] PasoJpcqonvNQDHBJHBER9175-67-47 09:17:00 Test Item Value Reference Range Interpretation Comments RDW (test code = RDW) 13.2 11.5-14.5 [facility] PasoZgfszjrZQMGRXGUSR3824-64-48 09:17:00 Test Item Value Reference Range Interpretation Comments MCHC (test code = MCHC) 34.4 32.0-36.0 [facility] PasoJwhystrHAHHPMPKQI2353-26-38 09:17:00 Test Item Value Reference Range Interpretation Comments MPV (test code = MPV) 10.3 7.4-10.4 [facility]2016-07-18 09:17:00 Test Item Value Reference Range Interpretation Comments eGFR (test code = eGFR) 94 [facility]2016-07-18 09:17:00 Test Item Value Reference Range Interpretation Comments Globulin (test code = Globulin) 3.7 2.0-4.0 [facility]2016-07-18 09:17:00 Test Item Value Reference Range Interpretation Comments ALT (test code = ALT) 24 See_Comment [Auto mated message] The system which ge nerated this result transmit shaun reference range : <=65. The reference range was not used to interpr et this result as jackeline l/abnormal. [facility]2016-07-18 09:17:00 Test Item Value Reference Range Interpretation Comments A/G Ratio (test code = A/G Ratio) 0.8 0.7-1.6 [facility]2016-07-18 09:17:00 Test Item Value Reference Range Interpretation Comments Alk Phos (test code = Alk Phos) 69 39-136 [facility]2016-07-18 09:17:00 Test Item Value Reference Range Interpretation Comments AST (test code = AST) 17 See_Comment [Auto mated message] The system which ge nerated this result transmit shaun reference range : <=37. The reference range was not used to interpr et this result as jackeline l/abnormal. [facility]2016-07-18 09:17:00 Test Item Value Reference Range Interpretation Comments Bili Total (test code = Bili Total) 0.6 0.2-1.3 [facility]2016-07-18 09:17:00 Test Item Value Reference Range Interpretation Comments Glucose Lvl (test code = Glucose Lvl) 102 70-99 [facility]2016-07-18 09:17:00 Test Item Value Reference Range Interpretation Comments BUN (test code = BUN) 10 7-22 [facility]2016-07-18 09:17:00 Test Item Value Reference Range Interpretation Comments Creatinine Lvl (test code = Creatinine 0.68 0.50-1.40 Lvl) [facility]2016-07-18 09:17:00 Test Item Value Reference Range Interpretation Comments Chloride Lvl (test code = Chloride Lvl) 107 95-109 [facility]2016-07-18 09:17:00 Test Item Value Reference Range Interpretation Comments Potassium Lvl (test code = Potassium 3.9 3.5-5.1 Lvl) [facility]2016-07-18 09:17:00 Test Item Value Reference Range Interpretation Comments CO2 (test code = CO2) 29 24-32 [facility]2016-07-18 09:17:00 Test Item Value Reference Range Interpretation Comments Sodium Lvl (test code = Sodium Lvl) 143 135-145 [facility]2016-07-18 09:17:00 Test Item Value Reference Range Interpretation Comments Total Protein (test code = Total 6.5 6.4-8.4 Protein) [facility]2016-07-18 09:17:00 Test Item Value Reference Range Interpretation Comments B/C Ratio (test code = B/C Ratio) 15 6-25 [facility]2016-07-18 09:17:00 Test Item Value Reference Range Interpretation Comments Albumin Lvl (test code = Albumin Lvl) 2.8 3.5-5.0 [facility]2016-07-18 09:17:00 Test Item Value Reference Range Interpretation Comments Calcium Lvl (test code = Calcium Lvl) 8.6 8.5-10.5 [facility]2016-07-18 09:17:00 Test Item Value Reference Range Interpretation Comments AGAP (test code = AGAP) 10.9 10.0-20.0 [facility] PasoFruspxqCMYOTVNOXM0620-56-41 09:17:00 Test Item Value Reference Range Interpretation Comments Basophils (test code = 0.3 See_Comment [Aut omated message] The Basophils) system which ge nerated this result tra nsmitted reference range : <=1.0. The reference r lily was not used to int erpret this result as normal/abnormal . [facility] PasoSlsehikZZVFNLZGKX4834-07-63 09:17:00 Test Item Value Reference Range Interpretation Comments Eosinophils (test code = 1.3 See_Comment [A utomated message] The Eosinophils) system which ge nerated this result tra nsmitted reference range : <=4.0. The reference r lily was not used to int erpret this result as normal/abnormal . [facility] PasoVlcgknqFBDIWOKJSS1026-31-11 09:17:00 Test Item Value Reference Range Interpretation Comments Monocytes # (test code 0.7 See_Comment [Aut omated message] The = Monocytes #) system which generated this result tra nsmitted reference range : <=0.8. The reference r lily was not used to int erpret this result as normal/abnormal . [facility] PasoLqivqpwMJRPVDIVTD8633-63-92 09:17:00 Test Item Value Reference Range Interpretation Comments Lymphocytes # (test code = Lymphocytes 1.7 1.0-5.5 #) [facility] PasoUtkyedfBFKCQAXNCJ3553-35-15 09:17:00 Test Item Value Reference Range Interpretation Comments Segs-Bands # (test code = Segs-Bands #) 5.8 1.5-8.1 [facility] PasoAngrogmNGTDRIUXWB2857-24-28 09:17:00 Test Item Value Reference Range Interpretation Comments Lymphocytes (test code = Lymphocytes) 20.7 20.0-40.0 [facility] PasoQewevngCXVKKHMQZA8677-14-42 09:17:00 Test Item Value Reference Range Interpretation Comments Monocytes (test code = Monocytes) 8.4 2.0-12.0 [facility] PasoVuhnhouSLMDPGZEDM1439-51-61 09:17:00 Test Item Value Reference Range Interpretation Comments Eosinophils # (test code 0.1 See_Comment [A utomated message] The = Eosinophils #) system v2tel h generated this result tra nsmitted reference range : <=0.5. The reference r lily was not used to int erpret this result as normal/abnormal . [facility] PasoDwynxgiNPTXIAPYRS1585-34-42 09:17:00 Test Item Value Reference Range Interpretation Comments Segs (test code = Segs) 69.3 45.0-75.0 [facility] PasoGlmroxvYETHVBMEOS5496-67-47 09:17:00 Test Item Value Reference Range Interpretation Comments Hgb (test code = Hgb) 11.7 12.0-16.0 [facility] PasoDqdgufgSSCZKNCAEU6030-48-90 09:17:00 Test Item Value Reference Range Interpretation Comments RBC (test code = RBC) 3.81 4.20-5.40 [facility] PasoFdgqulrWVHUTUYIPV7771-40-93 09:17:00 Test Item Value Reference Range Interpretation Comments WBC (test code = WBC) 8.4 3.7-10.4 [facility] PasoTjblzwyVOQILJLOFT6904-18-78 09:17:00 Test Item Value Reference Range Interpretation Comments MCH (test code = MCH) 30.7 pg 27.0-31.0 [facility] PasoPzvvgqzYBCRKWVNTU9741-96-85 09:17:00 Test Item Value Reference Range Interpretation Comments MCV (test code = MCV) 89.3 80.0-98.0 [facility] PasoBjaxnyrXTNYUHMIYG8173-86-73 09:17:00 Test Item Value Reference Range Interpretation Comments Hct (test code = Hct) 34.0 36.0-48.0 [facility] PasoBaiyquoNPMLVZWDGJ8413-49-21 09:17:00 Test Item Value Reference Range Interpretation Comments Platelet (test code = Platelet) 143 133-450 [facility] PasoOurnhpaPWMKNTGFXO3129-24-19 09:17:00 Test Item Value Reference Range Interpretation Comments RDW (test code = RDW) 13.2 11.5-14.5 [facility] PasoKhakkylXRFNKCGEOF7405-37-85 09:17:00 Test Item Value Reference Range Interpretation Comments MCHC (test code = MCHC) 34.4 32.0-36.0 [place] 101186-07-18 09:17:00 Test Item Value Reference Range Interpretation Comments MPV (test code = MPV) 10.3 7.4-10.4 [facility]2016-07-18 09:17:00 Test Item Value Reference Range Interpretation Comments eGFR (test code = eGFR) 94 [facility]2016-07-18 09:17:00 Test Item Value Reference Range Interpretation Comments Globulin (test code = Globulin) 3.7 2.0-4.0 [place] 523386-07-18 09:17:00 Test Item Value Reference Range Interpretation Comments ALT (test code = ALT) 24 See_Comment [Auto mated message] The system which ge nerated this result transmit shaun reference range : <=65. The reference range was not used to interpr et this result as jackeline l/abnormal. [facility]2016-07-18 09:17:00 Test Item Value Reference Range Interpretation Comments A/G Ratio (test code = A/G Ratio) 0.8 0.7-1.6 [place] 523386-07-18 09:17:00 Test Item Value Reference Range Interpretation Comments Alk Phos (test code = Alk Phos) 69 39-136 [place] 523386-07-18 09:17:00 Test Item Value Reference Range Interpretation Comments AST (test code = AST) 17 See_Comment [Auto mated message] The system which ge nerated this result transmit shaun reference range : <=37. The reference range was not used to interpr et this result as jackeline l/abnormal. [place] 523386-07-18 09:17:00 Test Item Value Reference Range Interpretation Comments Bili Total (test code = Bili Total) 0.6 0.2-1.3 [place] 523386-07-18 09:17:00 Test Item Value Reference Range Interpretation Comments Glucose Lvl (test code = Glucose Lvl) 102 70-99 [facility]2016-07-18 09:17:00 Test Item Value Reference Range Interpretation Comments BUN (test code = BUN) 10 7-22 [facility]2016-07-18 09:17:00 Test Item Value Reference Range Interpretation Comments Creatinine Lvl (test code = Creatinine 0.68 0.50-1.40 Lvl) [facility]2016-07-18 09:17:00 Test Item Value Reference Range Interpretation Comments Chloride Lvl (test code = Chloride Lvl) 107 95-109 [facility]2016-07-18 09:17:00 Test Item Value Reference Range Interpretation Comments Potassium Lvl (test code = Potassium 3.9 3.5-5.1 Lvl) [facility]2016-07-18 09:17:00 Test Item Value Reference Range Interpretation Comments CO2 (test code = CO2) 29 24-32 [facility]2016-07-18 09:17:00 Test Item Value Reference Range Interpretation Comments Sodium Lvl (test code = Sodium Lvl) 143 135-145 [facility]2016-07-18 09:17:00 Test Item Value Reference Range Interpretation Comments Total Protein (test code = Total 6.5 6.4-8.4 Protein) [facility]2016-07-18 09:17:00 Test Item Value Reference Range Interpretation Comments B/C Ratio (test code = B/C Ratio) 15 6-25 [facility]2016-07-18 09:17:00 Test Item Value Reference Range Interpretation Comments Albumin Lvl (test code = Albumin Lvl) 2.8 3.5-5.0 [facility]2016-07-18 09:17:00 Test Item Value Reference Range Interpretation Comments Calcium Lvl (test code = Calcium Lvl) 8.6 8.5-10.5 [facility]2016-07-18 09:17:00 Test Item Value Reference Range Interpretation Comments AGAP (test code = AGAP) 10.9 10.0-20.0 [facility] PasoYjyugewRQAWEHRTGE0399-17-15 09:17:00 Test Item Value Reference Range Interpretation Comments Basophils (test code = 0.3 See_Comment [Aut omated message] The Basophils) system which ge nerated this result tra nsmitted reference range : <=1.0. The reference r lily was not used to int erpret this result as normal/abnormal . [facility] PasoEfvqahtMSVSZCSUDV9451-02-25 09:17:00 Test Item Value Reference Range Interpretation Comments Eosinophils (test code = 1.3 See_Comment [A utomated message] The Eosinophils) system which ge nerated this result tra nsmitted reference range : <=4.0. The reference r lily was not used to int erpret this result as normal/abnormal . [facility] PasoOsjzldxZYHXDOMTRY3736-57-93 09:17:00 Test Item Value Reference Range Interpretation Comments Monocytes # (test code 0.7 See_Comment [Aut omated message] The = Monocytes #) system which generated this result tra nsmitted reference range : <=0.8. The reference r lily was not used to int erpret this result as normal/abnormal . [facility] PasoJyfhwjdNKMWIAJAZM1785-79-59 09:17:00 Test Item Value Reference Range Interpretation Comments Lymphocytes # (test code = Lymphocytes 1.7 1.0-5.5 #) [facility] PasoTetxgmrZXQPTJAGVW7981-51-29 09:17:00 Test Item Value Reference Range Interpretation Comments Segs-Bands # (test code = Segs-Bands #) 5.8 1.5-8.1 [facility] PasoCnpbtepSPPXRZSZNN6969-99-26 09:17:00 Test Item Value Reference Range Interpretation Comments Lymphocytes (test code = Lymphocytes) 20.7 20.0-40.0 [facility] PasoUqikplsTXQMWMELXL4070-12-10 09:17:00 Test Item Value Reference Range Interpretation Comments Monocytes (test code = Monocytes) 8.4 2.0-12.0 [facility] PasoHfxzybmIAABQFOWCY4399-49-60 09:17:00 Test Item Value Reference Range Interpretation Comments Eosinophils # (test code 0.1 See_Comment [A utomated message] The = Eosinophils #) system ic h generated this result tra nsmitted reference range : <=0.5. The reference r lily was not used to int erpret this result as normal/abnormal . [facility] PasoRvsbiqiHMPTGEJAZV0818-16-41 09:17:00 Test Item Value Reference Range Interpretation Comments Segs (test code = Segs) 69.3 45.0-75.0 [facility] PasoJwcynnoXSXLKYZBPK2823-40-26 09:17:00 Test Item Value Reference Range Interpretation Comments Hgb (test code = Hgb) 11.7 12.0-16.0 [facility] PasoHsgfestOLGJAEQKLD2964-37-86 09:17:00 Test Item Value Reference Range Interpretation Comments RBC (test code = RBC) 3.81 4.20-5.40 [facility] PasoNvyluoeKANMXMXIZX2237-80-07 09:17:00 Test Item Value Reference Range Interpretation Comments WBC (test code = WBC) 8.4 3.7-10.4 [facility] PasoOxveglmXQFPABAUPL6274-74-43 09:17:00 Test Item Value Reference Range Interpretation Comments MCH (test code = MCH) 30.7 pg 27.0-31.0 [facility] PasoWaykbrjOHCDPRKHFI3308-74-57 09:17:00 Test Item Value Reference Range Interpretation Comments MCV (test code = MCV) 89.3 80.0-98.0 [facility] PasoAfvarrtDSVJVAVTBN8045-66-92 09:17:00 Test Item Value Reference Range Interpretation Comments Hct (test code = Hct) 34.0 36.0-48.0 [facility] PasoEzlpvpePCBTJNDEMU9222-85-62 09:17:00 Test Item Value Reference Range Interpretation Comments Platelet (test code = Platelet) 143 133-450 [facility] PasoZciflsyODBTNIOHQD1035-40-19 09:17:00 Test Item Value Reference Range Interpretation Comments RDW (test code = RDW) 13.2 11.5-14.5 [facility] PasoNnmglxyCRVSLQTROI0382-98-15 09:17:00 Test Item Value Reference Range Interpretation Comments MCHC (test code = MCHC) 34.4 32.0-36.0 [facility] PasoArvreisSGYQZMCSNK6077-86-19 09:17:00 Test Item Value Reference Range Interpretation Comments MPV (test code = MPV) 10.3 7.4-10.4 [facility]2016-07-18 09:17:00 Test Item Value Reference Range Interpretation Comments eGFR (test code = eGFR) 94 [facility] IXRJZ8654-88-29 09:17:00 Test Item Value Reference Range Interpretation Comments Globulin (test code = Globulin) 3.7 2.0-4.0 [facility] IKGEO5459-35-15 09:17:00 Test Item Value Reference Range Interpretation Comments ALT (test code = ALT) 24 See_Comment [Auto mated message] The system which ge nerated this result transmit shaun reference range : <=65. The reference range was not used to interpr et this result as jackeline l/abnormal. [facility]2016-07-18 09:17:00 Test Item Value Reference Range Interpretation Comments A/G Ratio (test code = A/G Ratio) 0.8 0.7-1.6 [place] 523386-07-18 09:17:00 Test Item Value Reference Range Interpretation Comments Alk Phos (test code = Alk Phos) 69 39-136 [place] 523386-07-18 09:17:00 Test Item Value Reference Range Interpretation Comments AST (test code = AST) 17 See_Comment [Auto mated message] The system which ge nerated this result transmit shaun reference range : <=37. The reference range was not used to interpr et this result as jackeline l/abnormal. [facility]2016-07-18 09:17:00 Test Item Value Reference Range Interpretation Comments Bili Total (test code = Bili Total) 0.6 0.2-1.3 [place] 523386-07-18 09:17:00 Test Item Value Reference Range Interpretation Comments Glucose Lvl (test code = Glucose Lvl) 102 70-99 [facility]2016-07-18 09:17:00 Test Item Value Reference Range Interpretation Comments BUN (test code = BUN) 10 7-22 [facility]2016-07-18 09:17:00 Test Item Value Reference Range Interpretation Comments Creatinine Lvl (test code = Creatinine 0.68 0.50-1.40 Lvl) [place] 523386-07-18 09:17:00 Test Item Value Reference Range Interpretation Comments Chloride Lvl (test code = Chloride Lvl) 107 95-109 [facility]2016-07-18 09:17:00 Test Item Value Reference Range Interpretation Comments Potassium Lvl (test code = Potassium 3.9 3.5-5.1 Lvl) [place] 523386-07-18 09:17:00 Test Item Value Reference Range Interpretation Comments CO2 (test code = CO2) 29 24-32 [place] 523386-07-18 09:17:00 Test Item Value Reference Range Interpretation Comments Sodium Lvl (test code = Sodium Lvl) 143 135-145 [facility]2016-07-18 09:17:00 Test Item Value Reference Range Interpretation Comments Total Protein (test code = Total 6.5 6.4-8.4 Protein) [facility]2016-07-18 09:17:00 Test Item Value Reference Range Interpretation Comments B/C Ratio (test code = B/C Ratio) 15 6-25 [place] 523386-07-18 09:17:00 Test Item Value Reference Range Interpretation Comments Albumin Lvl (test code = Albumin Lvl) 2.8 3.5-5.0 [place] 523386-07-18 09:17:00 Test Item Value Reference Range Interpretation Comments Calcium Lvl (test code = Calcium Lvl) 8.6 8.5-10.5 [facility]2016-07-18 09:17:00 Test Item Value Reference Range Interpretation Comments AGAP (test code = AGAP) 10.9 10.0-20.0 [facility] PasoQjrfpgnKYHNJCJJKR2309-47-43 09:17:00 Test Item Value Reference Range Interpretation Comments Basophils (test code = 0.3 See_Comment [Aut omated message] The Basophils) system which ge nerated this result tra nsmitted reference range : <=1.0. The reference r lily was not used to int erpret this result as normal/abnormal . [facility] PasoVowpqbyHTNDIZIETW4371-58-88 09:17:00 Test Item Value Reference Range Interpretation Comments Eosinophils (test code = 1.3 See_Comment [A utomated message] The Eosinophils) system which ge nerated this result tra nsmitted reference range : <=4.0. The reference r lily was not used to int erpret this result as normal/abnormal . [facility] PasoClothuaZUGTBEJIDD9678-55-50 09:17:00 Test Item Value Reference Range Interpretation Comments Monocytes # (test code 0.7 See_Comment [Aut omated message] The = Monocytes #) system which generated this result tra nsmitted reference range : <=0.8. The reference r lily was not used to int erpret this result as normal/abnormal . [place] 101186-07-18 09:17:00 Test Item Value Reference Range Interpretation Comments Lymphocytes # (test code = Lymphocytes 1.7 1.0-5.5 #) [facility] PasoGeajsfxLPHUAXYDCM3030-54-93 09:17:00 Test Item Value Reference Range Interpretation Comments Segs-Bands # (test code = Segs-Bands #) 5.8 1.5-8.1 [facility] PasoJopmyjsIFSWAMRCIV2200-97-07 09:17:00 Test Item Value Reference Range Interpretation Comments Lymphocytes (test code = Lymphocytes) 20.7 20.0-40.0 [facility] PasoRuaractVHALZAIRFN7776-68-95 09:17:00 Test Item Value Reference Range Interpretation Comments Monocytes (test code = Monocytes) 8.4 2.0-12.0 [facility] PasoSiklbmpDCPUAMFRNH0305-31-11 09:17:00 Test Item Value Reference Range Interpretation Comments Eosinophils # (test code 0.1 See_Comment [A utomated message] The = Eosinophils #) system v2tel h generated this result tra nsmitted reference range : <=0.5. The reference r lily was not used to int erpret this result as normal/abnormal . [facility] PasoKdnrpzbEFGTQFTZLF0191-37-32 09:17:00 Test Item Value Reference Range Interpretation Comments Segs (test code = Segs) 69.3 45.0-75.0 [facility] PasoEtpjaezUOAAMGNDGA5899-14-64 09:17:00 Test Item Value Reference Range Interpretation Comments Hgb (test code = Hgb) 11.7 12.0-16.0 [facility] PasoWolwkcbOKDLAFNRGJ5632-18-51 09:17:00 Test Item Value Reference Range Interpretation Comments RBC (test code = RBC) 3.81 4.20-5.40 [facility] PasoPkprvvtIJBJBBXCBT8715-33-55 09:17:00 Test Item Value Reference Range Interpretation Comments WBC (test code = WBC) 8.4 3.7-10.4 [facility] PasoFnotdbjAXEVRDBOIV0861-55-10 09:17:00 Test Item Value Reference Range Interpretation Comments MCH (test code = MCH) 30.7 pg 27.0-31.0 [facility] PasoKkrjwoeJNZFQSDBPW9071-67-79 09:17:00 Test Item Value Reference Range Interpretation Comments MCV (test code = MCV) 89.3 80.0-98.0 [facility] PasoCsnnfxjCPIQONEVPW1207-06-64 09:17:00 Test Item Value Reference Range Interpretation Comments Hct (test code = Hct) 34.0 36.0-48.0 [facility] PasoBuywwfgXFPSSKBTMV2330-58-91 09:17:00 Test Item Value Reference Range Interpretation Comments Platelet (test code = Platelet) 143 133-450 [facility] PasoAxbgztpUSUOFZWRJL2462-86-48 09:17:00 Test Item Value Reference Range Interpretation Comments RDW (test code = RDW) 13.2 11.5-14.5 [place] 101186-07-18 09:17:00 Test Item Value Reference Range Interpretation Comments MCHC (test code = MCHC) 34.4 32.0-36.0 [place] 101186-07-18 09:17:00 Test Item Value Reference Range Interpretation Comments MPV (test code = MPV) 10.3 7.4-10.4 [facility]2016-07-18 09:17:00 Test Item Value Reference Range Interpretation Comments eGFR (test code = eGFR) 94 [facility]2016-07-18 09:17:00 Test Item Value Reference Range Interpretation Comments Globulin (test code = Globulin) 3.7 2.0-4.0 [facility]2016-07-18 09:17:00 Test Item Value Reference Range Interpretation Comments ALT (test code = ALT) 24 See_Comment [Auto mated message] The system which ge nerated this result transmit shaun reference range : <=65. The reference range was not used to interpr et this result as jackeline l/abnormal. [facility]2016-07-18 09:17:00 Test Item Value Reference Range Interpretation Comments A/G Ratio (test code = A/G Ratio) 0.8 0.7-1.6 [place] 523386-07-18 09:17:00 Test Item Value Reference Range Interpretation Comments Alk Phos (test code = Alk Phos) 69 39-136 [facility]2016-07-18 09:17:00 Test Item Value Reference Range Interpretation Comments AST (test code = AST) 17 See_Comment [Auto mated message] The system which ge nerated this result transmit shaun reference range : <=37. The reference range was not used to interpr et this result as jackeline l/abnormal. [facility]2016-07-18 09:17:00 Test Item Value Reference Range Interpretation Comments Bili Total (test code = Bili Total) 0.6 0.2-1.3 [facility]2016-07-18 09:17:00 Test Item Value Reference Range Interpretation Comments Glucose Lvl (test code = Glucose Lvl) 102 70-99 [facility]2016-07-18 09:17:00 Test Item Value Reference Range Interpretation Comments BUN (test code = BUN) 10 7-22 [facility]2016-07-18 09:17:00 Test Item Value Reference Range Interpretation Comments Creatinine Lvl (test code = Creatinine 0.68 0.50-1.40 Lvl) [facility]2016-07-18 09:17:00 Test Item Value Reference Range Interpretation Comments Chloride Lvl (test code = Chloride Lvl) 107 95-109 [facility]2016-07-18 09:17:00 Test Item Value Reference Range Interpretation Comments Potassium Lvl (test code = Potassium 3.9 3.5-5.1 Lvl) [facility]2016-07-18 09:17:00 Test Item Value Reference Range Interpretation Comments CO2 (test code = CO2) 29 24-32 [facility]2016-07-18 09:17:00 Test Item Value Reference Range Interpretation Comments Sodium Lvl (test code = Sodium Lvl) 143 135-145 [facility]2016-07-18 09:17:00 Test Item Value Reference Range Interpretation Comments Total Protein (test code = Total 6.5 6.4-8.4 Protein) [facility]2016-07-18 09:17:00 Test Item Value Reference Range Interpretation Comments B/C Ratio (test code = B/C Ratio) 15 6-25 [facility]2016-07-18 09:17:00 Test Item Value Reference Range Interpretation Comments Albumin Lvl (test code = Albumin Lvl) 2.8 3.5-5.0 [facility]2016-07-18 09:17:00 Test Item Value Reference Range Interpretation Comments Calcium Lvl (test code = Calcium Lvl) 8.6 8.5-10.5 [facility]2016-07-18 09:17:00 Test Item Value Reference Range Interpretation Comments AGAP (test code = AGAP) 10.9 10.0-20.0 [place] 101186-07-18 09:17:00 Test Item Value Reference Range Interpretation Comments Basophils (test code = 0.3 See_Comment [Aut omated message] The Basophils) system which ge nerated this result tra nsmitted reference range : <=1.0. The reference r lily was not used to int erpret this result as normal/abnormal . [facility] PasoQhzxgnuQTRQVVYNUR2306-35-04 09:17:00 Test Item Value Reference Range Interpretation Comments Eosinophils (test code = 1.3 See_Comment [A utomated message] The Eosinophils) system which ge nerated this result tra nsmitted reference range : <=4.0. The reference r lily was not used to int erpret this result as normal/abnormal . [facility] PasoPbyhkqqRGDWEYBBFI9285-87-45 09:17:00 Test Item Value Reference Range Interpretation Comments Monocytes # (test code 0.7 See_Comment [Aut omated message] The = Monocytes #) system which generated this result tra nsmitted reference range : <=0.8. The reference r lily was not used to int erpret this result as normal/abnormal . [facility] PasoNxvnjhiWWCASHDYWQ0408-48-13 09:17:00 Test Item Value Reference Range Interpretation Comments Lymphocytes # (test code = Lymphocytes 1.7 1.0-5.5 #) [facility] PasoUobwpuyRLMFDVIWPX2354-09-74 09:17:00 Test Item Value Reference Range Interpretation Comments Segs-Bands # (test code = Segs-Bands #) 5.8 1.5-8.1 [facility] PasoKnfdqmqUSTVIORHCJ5779-96-26 09:17:00 Test Item Value Reference Range Interpretation Comments Lymphocytes (test code = Lymphocytes) 20.7 20.0-40.0 [facility] PasoGsqikhqYQCXVQWZPJ8873-62-05 09:17:00 Test Item Value Reference Range Interpretation Comments Monocytes (test code = Monocytes) 8.4 2.0-12.0 [facility] PasoMgrsyciDTERSPZDZT7570-21-33 09:17:00 Test Item Value Reference Range Interpretation Comments Eosinophils # (test code 0.1 See_Comment [A utomated message] The = Eosinophils #) system whic h generated this result tra nsmitted reference range : <=0.5. The reference r lily was not used to int erpret this result as normal/abnormal . [facility] PasoEickjiuPVBCAXRZAN8303-48-79 09:17:00 Test Item Value Reference Range Interpretation Comments Segs (test code = Segs) 69.3 45.0-75.0 [facility] PasoFhgdjjhVENFQQJIRL3910-17-60 09:17:00 Test Item Value Reference Range Interpretation Comments Hgb (test code = Hgb) 11.7 12.0-16.0 [facility] PasoPqnymknPZPYRBXQGI8383-81-17 09:17:00 Test Item Value Reference Range Interpretation Comments RBC (test code = RBC) 3.81 4.20-5.40 [facility] PasoPcbzeybDECZYWTHWX5550-73-93 09:17:00 Test Item Value Reference Range Interpretation Comments WBC (test code = WBC) 8.4 3.7-10.4 [facility] PasoKuybaglWDCYXJUGBW1448-77-93 09:17:00 Test Item Value Reference Range Interpretation Comments MCH (test code = MCH) 30.7 pg 27.0-31.0 [facility] PasoOucwxapOTWMHHLFNX1040-88-91 09:17:00 Test Item Value Reference Range Interpretation Comments MCV (test code = MCV) 89.3 80.0-98.0 [facility] PasoEouqfckVEMFVDAICS4508-52-82 09:17:00 Test Item Value Reference Range Interpretation Comments Hct (test code = Hct) 34.0 36.0-48.0 [facility] PasoAytbzuwLOPZKMVNBF7999-87-85 09:17:00 Test Item Value Reference Range Interpretation Comments Platelet (test code = Platelet) 143 133-450 [facility] PasoDayccipYWYPVQAFSM8927-50-78 09:17:00 Test Item Value Reference Range Interpretation Comments RDW (test code = RDW) 13.2 11.5-14.5 [facility] PasoKodxnexHLWFLITQRF9369-23-13 09:17:00 Test Item Value Reference Range Interpretation Comments MCHC (test code = MCHC) 34.4 32.0-36.0 [facility] PasoSdgkhiaMUSVDIIMCT0526-43-83 09:17:00 Test Item Value Reference Range Interpretation Comments MPV (test code = MPV) 10.3 7.4-10.4 [facility]2016-07-18 09:17:00 Test Item Value Reference Range Interpretation Comments eGFR (test code = eGFR) 94 [facility] NCYIL0520-37-25 09:17:00 Test Item Value Reference Range Interpretation Comments Globulin (test code = Globulin) 3.7 2.0-4.0 [facility]2016-07-18 09:17:00 Test Item Value Reference Range Interpretation Comments ALT (test code = ALT) 24 See_Comment [Auto mated message] The system which ge nerated this result transmit shaun reference range : <=65. The reference range was not used to interpr et this result as jackeline l/abnormal. [facility]2016-07-18 09:17:00 Test Item Value Reference Range Interpretation Comments A/G Ratio (test code = A/G Ratio) 0.8 0.7-1.6 [facility]2016-07-18 09:17:00 Test Item Value Reference Range Interpretation Comments Alk Phos (test code = Alk Phos) 69 39-136 [facility]2016-07-18 09:17:00 Test Item Value Reference Range Interpretation Comments AST (test code = AST) 17 See_Comment [Auto mated message] The system which ge nerated this result transmit shaun reference range : <=37. The reference range was not used to interpr et this result as jackeline l/abnormal. [facility]2016-07-18 09:17:00 Test Item Value Reference Range Interpretation Comments Bili Total (test code = Bili Total) 0.6 0.2-1.3 [place] 523386-07-18 09:17:00 Test Item Value Reference Range Interpretation Comments Glucose Lvl (test code = Glucose Lvl) 102 70-99 [facility]2016-07-18 09:17:00 Test Item Value Reference Range Interpretation Comments BUN (test code = BUN) 10 7-22 [facility]2016-07-18 09:17:00 Test Item Value Reference Range Interpretation Comments Creatinine Lvl (test code = Creatinine 0.68 0.50-1.40 Lvl) [facility]2016-07-18 09:17:00 Test Item Value Reference Range Interpretation Comments Chloride Lvl (test code = Chloride Lvl) 107 95-109 [place] 523386-07-18 09:17:00 Test Item Value Reference Range Interpretation Comments Potassium Lvl (test code = Potassium 3.9 3.5-5.1 Lvl) [facility]2016-07-18 09:17:00 Test Item Value Reference Range Interpretation Comments CO2 (test code = CO2) 29 24-32 [place] 523386-07-18 09:17:00 Test Item Value Reference Range Interpretation Comments Sodium Lvl (test code = Sodium Lvl) 143 135-145 [place] 523386-07-18 09:17:00 Test Item Value Reference Range Interpretation Comments Total Protein (test code = Total 6.5 6.4-8.4 Protein) [place] 523386-07-18 09:17:00 Test Item Value Reference Range Interpretation Comments B/C Ratio (test code = B/C Ratio) 15 6-25 [place] 523386-07-18 09:17:00 Test Item Value Reference Range Interpretation Comments Albumin Lvl (test code = Albumin Lvl) 2.8 3.5-5.0 [place] 523386-07-18 09:17:00 Test Item Value Reference Range Interpretation Comments Calcium Lvl (test code = Calcium Lvl) 8.6 8.5-10.5 [place] 523386-07-18 09:17:00 Test Item Value Reference Range Interpretation Comments AGAP (test code = AGAP) 10.9 10.0-20.0 [facility] PasoSpllmtsKPECOXZLXP5350-91-96 09:17:00 Test Item Value Reference Range Interpretation Comments Basophils (test code = 0.3 See_Comment [Aut omated message] The Basophils) system which ge nerated this result tra nsmitted reference range : <=1.0. The reference r lily was not used to int erpret this result as normal/abnormal . [facility] PasoBqosjejJFJPXBCKMO1422-09-19 09:17:00 Test Item Value Reference Range Interpretation Comments Eosinophils (test code = 1.3 See_Comment [A utomated message] The Eosinophils) system which ge nerated this result tra nsmitted reference range : <=4.0. The reference r lily was not used to int erpret this result as normal/abnormal . [facility] PasoJbximhbMDRYBTCNXW9129-80-37 09:17:00 Test Item Value Reference Range Interpretation Comments Monocytes # (test code 0.7 See_Comment [Aut omated message] The = Monocytes #) system which generated this result tra nsmitted reference range : <=0.8. The reference r lily was not used to int erpret this result as normal/abnormal . [facility] PasoQwjilrxADNFMJOBFK1355-86-68 09:17:00 Test Item Value Reference Range Interpretation Comments Lymphocytes # (test code = Lymphocytes 1.7 1.0-5.5 #) [facility] PasoHajjuuwCVPZQSSXFN6635-78-07 09:17:00 Test Item Value Reference Range Interpretation Comments Segs-Bands # (test code = Segs-Bands #) 5.8 1.5-8.1 [facility] PasoQotbynmXSZRMUMSPS4085-42-22 09:17:00 Test Item Value Reference Range Interpretation Comments Lymphocytes (test code = Lymphocytes) 20.7 20.0-40.0 [facility] PasoNhsjbifQQMMMGXKND8241-54-08 09:17:00 Test Item Value Reference Range Interpretation Comments Monocytes (test code = Monocytes) 8.4 2.0-12.0 [facility] PasoAptzkhjWUHBNQXGJJ7839-97-88 09:17:00 Test Item Value Reference Range Interpretation Comments Eosinophils # (test code 0.1 See_Comment [A utomated message] The = Eosinophils #) system v2tel h generated this result tra nsmitted reference range : <=0.5. The reference r lily was not used to int erpret this result as normal/abnormal . [facility] PasoCejdascPLEMBOQHSX2034-40-56 09:17:00 Test Item Value Reference Range Interpretation Comments Segs (test code = Segs) 69.3 45.0-75.0 [facility] PasoYdttnvwHOBGDRFXVM5143-52-62 09:17:00 Test Item Value Reference Range Interpretation Comments Hgb (test code = Hgb) 11.7 12.0-16.0 [facility] PasoYnxnotpHOESAMQTIX9697-20-62 09:17:00 Test Item Value Reference Range Interpretation Comments RBC (test code = RBC) 3.81 4.20-5.40 [facility] PasoGrdtmksKQXOBTWPNC2447-25-96 09:17:00 Test Item Value Reference Range Interpretation Comments WBC (test code = WBC) 8.4 3.7-10.4 [facility] PasoUuewuylYGLOACPKUS2605-31-84 09:17:00 Test Item Value Reference Range Interpretation Comments MCH (test code = MCH) 30.7 pg 27.0-31.0 [facility] PasoKwsjoywRPQKLXSIPO9514-79-69 09:17:00 Test Item Value Reference Range Interpretation Comments MCV (test code = MCV) 89.3 80.0-98.0 [facility] PasoFlezricXRVYJBRLNY0904-57-69 09:17:00 Test Item Value Reference Range Interpretation Comments Hct (test code = Hct) 34.0 36.0-48.0 [facility] PasoXpnnqnaQQTLFTYODA5893-18-35 09:17:00 Test Item Value Reference Range Interpretation Comments Platelet (test code = Platelet) 143 133-450 [facility] PasoElfmlyzDKAXLDLRLH1016-98-20 09:17:00 Test Item Value Reference Range Interpretation Comments RDW (test code = RDW) 13.2 11.5-14.5 [facility] PasoTjvyznvFOHTGYLNWQ9817-17-54 09:17:00 Test Item Value Reference Range Interpretation Comments MCHC (test code = MCHC) 34.4 32.0-36.0 [facility] PasoInntvptMTFULPNBGN0374-49-39 09:17:00 Test Item Value Reference Range Interpretation Comments MPV (test code = MPV) 10.3 7.4-10.4 [facility]2016-07-18 09:17:00 Test Item Value Reference Range Interpretation Comments eGFR (test code = eGFR) 94 [facility]2016-07-18 09:17:00 Test Item Value Reference Range Interpretation Comments Globulin (test code = Globulin) 3.7 2.0-4.0 [facility]2016-07-18 09:17:00 Test Item Value Reference Range Interpretation Comments ALT (test code = ALT) 24 See_Comment [Auto mated message] The system which ge nerated this result transmit shaun reference range : <=65. The reference range was not used to interpr et this result as jackeline l/abnormal. [facility]2016-07-18 09:17:00 Test Item Value Reference Range Interpretation Comments A/G Ratio (test code = A/G Ratio) 0.8 0.7-1.6 [facility]2016-07-18 09:17:00 Test Item Value Reference Range Interpretation Comments Alk Phos (test code = Alk Phos) 69 39-136 [place] 523386-07-18 09:17:00 Test Item Value Reference Range Interpretation Comments AST (test code = AST) 17 See_Comment [Auto mated message] The system which ge nerated this result transmit shaun reference range : <=37. The reference range was not used to interpr et this result as jackeline l/abnormal. [facility]2016-07-18 09:17:00 Test Item Value Reference Range Interpretation Comments Bili Total (test code = Bili Total) 0.6 0.2-1.3 [place] 523386-07-18 09:17:00 Test Item Value Reference Range Interpretation Comments Glucose Lvl (test code = Glucose Lvl) 102 70-99 [facility]2016-07-18 09:17:00 Test Item Value Reference Range Interpretation Comments BUN (test code = BUN) 10 7-22 [facility]2016-07-18 09:17:00 Test Item Value Reference Range Interpretation Comments Creatinine Lvl (test code = Creatinine 0.68 0.50-1.40 Lvl) [facility]2016-07-18 09:17:00 Test Item Value Reference Range Interpretation Comments Chloride Lvl (test code = Chloride Lvl) 107 95-109 [facility]2016-07-18 09:17:00 Test Item Value Reference Range Interpretation Comments Potassium Lvl (test code = Potassium 3.9 3.5-5.1 Lvl) [facility]2016-07-18 09:17:00 Test Item Value Reference Range Interpretation Comments CO2 (test code = CO2) 29 24-32 [facility]2016-07-18 09:17:00 Test Item Value Reference Range Interpretation Comments Sodium Lvl (test code = Sodium Lvl) 143 135-145 [facility]2016-07-18 09:17:00 Test Item Value Reference Range Interpretation Comments Total Protein (test code = Total 6.5 6.4-8.4 Protein) [facility]2016-07-18 09:17:00 Test Item Value Reference Range Interpretation Comments B/C Ratio (test code = B/C Ratio) 15 6-25 [place] 523386-07-18 09:17:00 Test Item Value Reference Range Interpretation Comments Albumin Lvl (test code = Albumin Lvl) 2.8 3.5-5.0 [place] 523386-07-18 09:17:00 Test Item Value Reference Range Interpretation Comments Calcium Lvl (test code = Calcium Lvl) 8.6 8.5-10.5 [facility]2016-07-18 09:17:00 Test Item Value Reference Range Interpretation Comments AGAP (test code = AGAP) 10.9 10.0-20.0 [facility] PasoPoobdciVGNEMCOTYD9326-40-85 09:17:00 Test Item Value Reference Range Interpretation Comments Basophils (test code = 0.3 See_Comment [Aut omated message] The Basophils) system which ge nerated this result tra nsmitted reference range : <=1.0. The reference r lily was not used to int erpret this result as normal/abnormal . [facility] PasoBmkpgasFRAIQGJHOA6067-14-69 09:17:00 Test Item Value Reference Range Interpretation Comments Eosinophils (test code = 1.3 See_Comment [A utomated message] The Eosinophils) system which ge nerated this result tra nsmitted reference range : <=4.0. The reference r lily was not used to int erpret this result as normal/abnormal . [facility] PasoFqfjzhcLIROHHQOEG3153-45-56 09:17:00 Test Item Value Reference Range Interpretation Comments Monocytes # (test code 0.7 See_Comment [Aut omated message] The = Monocytes #) system which generated this result tra nsmitted reference range : <=0.8. The reference r lily was not used to int erpret this result as normal/abnormal . [facility] PasoJkfukriQTYSQGXUPW3910-19-90 09:17:00 Test Item Value Reference Range Interpretation Comments Lymphocytes # (test code = Lymphocytes 1.7 1.0-5.5 #) [facility] PasoCmnbrpcXZBOINASHO9150-40-51 09:17:00 Test Item Value Reference Range Interpretation Comments Segs-Bands # (test code = Segs-Bands #) 5.8 1.5-8.1 [facility] PasoDtizonfAVTOTWIUBZ3968-79-68 09:17:00 Test Item Value Reference Range Interpretation Comments Lymphocytes (test code = Lymphocytes) 20.7 20.0-40.0 [facility] PasoIgvqpvvDHUKMPTYJW2726-31-21 09:17:00 Test Item Value Reference Range Interpretation Comments Monocytes (test code = Monocytes) 8.4 2.0-12.0 [facility] PasoMeepnttYRWZLARSJL1638-41-09 09:17:00 Test Item Value Reference Range Interpretation Comments Eosinophils # (test code 0.1 See_Comment [A utomated message] The = Eosinophils #) system whic h generated this result tra nsmitted reference range : <=0.5. The reference r lily was not used to int erpret this result as normal/abnormal . [facility] PasoQytkccwEIEWLGIAFW5676-88-14 09:17:00 Test Item Value Reference Range Interpretation Comments Segs (test code = Segs) 69.3 45.0-75.0 [facility] PasoHkhzscfBUAVMKFAVE7303-70-47 09:17:00 Test Item Value Reference Range Interpretation Comments Hgb (test code = Hgb) 11.7 12.0-16.0 [facility] PasoWwpgorfBUFYCQHSMW1565-42-57 09:17:00 Test Item Value Reference Range Interpretation Comments RBC (test code = RBC) 3.81 4.20-5.40 [facility] PasoHbklwkoEFZQJCXUZR3115-62-83 09:17:00 Test Item Value Reference Range Interpretation Comments WBC (test code = WBC) 8.4 3.7-10.4 [facility] PasoYgpzbnhOQSJSJOBWI9752-40-36 09:17:00 Test Item Value Reference Range Interpretation Comments MCH (test code = MCH) 30.7 pg 27.0-31.0 [facility] PasoRdlrnpvRFDPGZAJXE5986-55-27 09:17:00 Test Item Value Reference Range Interpretation Comments MCV (test code = MCV) 89.3 80.0-98.0 [facility] PasoAmcesizBYLVZGKUSC5217-27-54 09:17:00 Test Item Value Reference Range Interpretation Comments Hct (test code = Hct) 34.0 36.0-48.0 [facility] PasoBdncgzeGOUJHPOAFQ6839-72-34 09:17:00 Test Item Value Reference Range Interpretation Comments Platelet (test code = Platelet) 143 133-450 [facility] PasoYjtefvqBGINWPYLTI8677-95-74 09:17:00 Test Item Value Reference Range Interpretation Comments RDW (test code = RDW) 13.2 11.5-14.5 [facility] PasoHxyxeawPHIFLOZTVL2089-51-89 09:17:00 Test Item Value Reference Range Interpretation Comments MCHC (test code = MCHC) 34.4 32.0-36.0 [facility] PasoFmnhsswNPNMARPRZI6958-49-70 09:17:00 Test Item Value Reference Range Interpretation Comments MPV (test code = MPV) 10.3 7.4-10.4 [facility]2016-07-18 09:17:00 Test Item Value Reference Range Interpretation Comments eGFR (test code = eGFR) 94 [facility]2016-07-18 09:17:00 Test Item Value Reference Range Interpretation Comments Globulin (test code = Globulin) 3.7 2.0-4.0 [place] 523386-07-18 09:17:00 Test Item Value Reference Range Interpretation Comments ALT (test code = ALT) 24 See_Comment [Auto mated message] The system which ge nerated this result transmit shaun reference range : <=65. The reference range was not used to interpr et this result as jackeline l/abnormal. [facility]2016-07-18 09:17:00 Test Item Value Reference Range Interpretation Comments A/G Ratio (test code = A/G Ratio) 0.8 0.7-1.6 [place] 523386-07-18 09:17:00 Test Item Value Reference Range Interpretation Comments Alk Phos (test code = Alk Phos) 69 39-136 [facility]2016-07-18 09:17:00 Test Item Value Reference Range Interpretation Comments AST (test code = AST) 17 See_Comment [Auto mated message] The system which ge nerated this result transmit shaun reference range : <=37. The reference range was not used to interpr et this result as jackeline l/abnormal. [facility]2016-07-18 09:17:00 Test Item Value Reference Range Interpretation Comments Bili Total (test code = Bili Total) 0.6 0.2-1.3 [facility]2016-07-18 09:17:00 Test Item Value Reference Range Interpretation Comments Glucose Lvl (test code = Glucose Lvl) 102 70-99 [place] 523386-07-18 09:17:00 Test Item Value Reference Range Interpretation Comments BUN (test code = BUN) 10 7-22 [facility]2016-07-18 09:17:00 Test Item Value Reference Range Interpretation Comments Creatinine Lvl (test code = Creatinine 0.68 0.50-1.40 Lvl) [facility]2016-07-18 09:17:00 Test Item Value Reference Range Interpretation Comments Chloride Lvl (test code = Chloride Lvl) 107 95-109 [place] 523386-07-18 09:17:00 Test Item Value Reference Range Interpretation Comments Potassium Lvl (test code = Potassium 3.9 3.5-5.1 Lvl) [place] 523386-07-18 09:17:00 Test Item Value Reference Range Interpretation Comments CO2 (test code = CO2) 29 24-32 [place] 523386-07-18 09:17:00 Test Item Value Reference Range Interpretation Comments Sodium Lvl (test code = Sodium Lvl) 143 135-145 [place] 523386-07-18 09:17:00 Test Item Value Reference Range Interpretation Comments Total Protein (test code = Total 6.5 6.4-8.4 Protein) [place] 523386-07-18 09:17:00 Test Item Value Reference Range Interpretation Comments B/C Ratio (test code = B/C Ratio) 15 6-25 [place] 523386-07-18 09:17:00 Test Item Value Reference Range Interpretation Comments Albumin Lvl (test code = Albumin Lvl) 2.8 3.5-5.0 [place] 523386-07-18 09:17:00 Test Item Value Reference Range Interpretation Comments Calcium Lvl (test code = Calcium Lvl) 8.6 8.5-10.5 [place] 523386-07-18 09:17:00 Test Item Value Reference Range Interpretation Comments AGAP (test code = AGAP) 10.9 10.0-20.0 [facility] PasoR[id number] 09:17:00 Test Item Value Reference Range Interpretation Comments Basophils (test code = 0.3 See_Comment [Aut omated message] The Basophils) system which nerated this result tra nsmitted reference range : <=1.0. The reference r lily was not used to int erpret this result as normal/abnormal . [place] 101186-07-18 09:17:00 Test Item Value Reference Range Interpretation Comments Eosinophils (test code = 1.3 See_Comment [A utomated message] The Eosinophils) system which ge nerated this result tra nsmitted reference range : <=4.0. The reference r lily was not used to int erpret this result as normal/abnormal . [place] 101186-07-18 09:17:00 Test Item Value Reference Range Interpretation Comments Monocytes # (test code 0.7 See_Comment [Aut omated message] The = Monocytes #) system which generated this result tra nsmitted reference range : <=0.8. The reference r lily was not used to int erpret this result as normal/abnormal . [facility] PasoBmlirqaXSBBPWOTAR9068-54-95 09:17:00 Test Item Value Reference Range Interpretation Comments Lymphocytes # (test code = Lymphocytes 1.7 1.0-5.5 #) [facility] PasoZxobbneFWEGZSEGWS3873-45-13 09:17:00 Test Item Value Reference Range Interpretation Comments Segs-Bands # (test code = Segs-Bands #) 5.8 1.5-8.1 [facility] PasoYgszbzsRZUYEHECXC1643-08-29 09:17:00 Test Item Value Reference Range Interpretation Comments Lymphocytes (test code = Lymphocytes) 20.7 20.0-40.0 [facility] PasoIhzohrnEKJEYWCLFY5268-87-09 09:17:00 Test Item Value Reference Range Interpretation Comments Monocytes (test code = Monocytes) 8.4 2.0-12.0 [facility] PasoNtetnvjHANWKGXMGA9376-66-98 09:17:00 Test Item Value Reference Range Interpretation Comments Eosinophils # (test code 0.1 See_Comment [A utomated message] The = Eosinophils #) system whic h generated this result tra nsmitted reference range : <=0.5. The reference r lily was not used to int erpret this result as normal/abnormal . [facility] PasoTjbkupzLWAOAKHOUL8819-50-84 09:17:00 Test Item Value Reference Range Interpretation Comments Segs (test code = Segs) 69.3 45.0-75.0 [facility] PasoEkcylvhYCCGUJITDZ8629-97-00 09:17:00 Test Item Value Reference Range Interpretation Comments Hgb (test code = Hgb) 11.7 12.0-16.0 [facility] PasoAykwrveXXFAGTRCMX7309-53-87 09:17:00 Test Item Value Reference Range Interpretation Comments RBC (test code = RBC) 3.81 4.20-5.40 [facility] PasoRmyqsqmOSXDURVHTZ5037-47-90 09:17:00 Test Item Value Reference Range Interpretation Comments WBC (test code = WBC) 8.4 3.7-10.4 [facility] PasoRncyouoBEGCNHTBDB3679-10-32 09:17:00 Test Item Value Reference Range Interpretation Comments MCH (test code = MCH) 30.7 pg 27.0-31.0 [facility] PasoMqmsuvzEXKTULHRQF9026-88-32 09:17:00 Test Item Value Reference Range Interpretation Comments MCV (test code = MCV) 89.3 80.0-98.0 [place] 101186-07-18 09:17:00 Test Item Value Reference Range Interpretation Comments Hct (test code = Hct) 34.0 36.0-48.0 [facility] PasoIcvsdhiADOGSEPODY8518-23-19 09:17:00 Test Item Value Reference Range Interpretation Comments Platelet (test code = Platelet) 143 133-450 [facility] PasoEophvxxHMXCQNYZZE4451-43-20 09:17:00 Test Item Value Reference Range Interpretation Comments RDW (test code = RDW) 13.2 11.5-14.5 [facility] PasoSkeqkulSZFYHBDWCQ8315-01-32 09:17:00 Test Item Value Reference Range Interpretation Comments MCHC (test code = MCHC) 34.4 32.0-36.0 [facility] PasoKgbdsezASTMXYAAXU2351-95-54 09:17:00 Test Item Value Reference Range Interpretation Comments MPV (test code = MPV) 10.3 7.4-10.4 [facility]2016-07-18 09:17:00 Test Item Value Reference Range Interpretation Comments eGFR (test code = eGFR) 94 [facility]2016-07-18 09:17:00 Test Item Value Reference Range Interpretation Comments Globulin (test code = Globulin) 3.7 2.0-4.0 [facility]2016-07-18 09:17:00 Test Item Value Reference Range Interpretation Comments ALT (test code = ALT) 24 See_Comment [Auto mated message] The system which ge nerated this result transmit shaun reference range : <=65. The reference range was not used to interpr et this result as jackeline l/abnormal. [facility]2016-07-18 09:17:00 Test Item Value Reference Range Interpretation Comments A/G Ratio (test code = A/G Ratio) 0.8 0.7-1.6 [facility]2016-07-18 09:17:00 Test Item Value Reference Range Interpretation Comments Alk Phos (test code = Alk Phos) 69 39-136 [place] 523386-07-18 09:17:00 Test Item Value Reference Range Interpretation Comments AST (test code = AST) 17 See_Comment [Auto mated message] The system which ge nerated this result transmit shaun reference range : <=37. The reference range was not used to interpr et this result as jackeline l/abnormal. [facility]2016-07-18 09:17:00 Test Item Value Reference Range Interpretation Comments Bili Total (test code = Bili Total) 0.6 0.2-1.3 [facility]2016-07-18 09:17:00 Test Item Value Reference Range Interpretation Comments Glucose Lvl (test code = Glucose Lvl) 102 70-99 [facility]2016-07-18 09:17:00 Test Item Value Reference Range Interpretation Comments BUN (test code = BUN) 10 7-22 [facility]2016-07-18 09:17:00 Test Item Value Reference Range Interpretation Comments Creatinine Lvl (test code = Creatinine 0.68 0.50-1.40 Lvl) [facility]2016-07-18 09:17:00 Test Item Value Reference Range Interpretation Comments Chloride Lvl (test code = Chloride Lvl) 107 95-109 [facility]2016-07-18 09:17:00 Test Item Value Reference Range Interpretation Comments Potassium Lvl (test code = Potassium 3.9 3.5-5.1 Lvl) [facility]2016-07-18 09:17:00 Test Item Value Reference Range Interpretation Comments CO2 (test code = CO2) 29 24-32 [facility]2016-07-18 09:17:00 Test Item Value Reference Range Interpretation Comments Sodium Lvl (test code = Sodium Lvl) 143 135-145 [facility]2016-07-18 09:17:00 Test Item Value Reference Range Interpretation Comments Total Protein (test code = Total 6.5 6.4-8.4 Protein) [facility]2016-07-18 09:17:00 Test Item Value Reference Range Interpretation Comments B/C Ratio (test code = B/C Ratio) 15 6-25 [place] [address]386-07-18 09:17:00 Test Item Value Reference Range Interpretation Comments Albumin Lvl (test code = Albumin Lvl) 2.8 3.5-5.0 [facility]2016-07-18 09:17:00 Test Item Value Reference Range Interpretation Comments Calcium Lvl (test code = Calcium Lvl) 8.6 8.5-10.5 [facility]2016-07-18 09:17:00 Test Item Value Reference Range Interpretation Comments AGAP (test code = AGAP) 10.9 10.0-20.0 [facility] PasoBzgyywuXOEMZTCKAK7456-55-87 09:17:00 Test Item Value Reference Range Interpretation Comments Basophils (test code = 0.3 See_Comment [Aut omated message] The Basophils) system which ge nerated this result tra nsmitted reference range : <=1.0. The reference r lily was not used to int erpret this result as normal/abnormal . [facility] PasoIdwwmwsQDONXCKDUW5122-81-37 09:17:00 Test Item Value Reference Range Interpretation Comments Eosinophils (test code = 1.3 See_Comment [A utomated message] The Eosinophils) system which ge nerated this result tra nsmitted reference range : <=4.0. The reference r lily was not used to int erpret this result as normal/abnormal . [facility] PasoFxapzruPAPLTAEFDA9248-73-37 09:17:00 Test Item Value Reference Range Interpretation Comments Monocytes # (test code 0.7 See_Comment [Aut omated message] The = Monocytes #) system which generated this result tra nsmitted reference range : <=0.8. The reference r lily was not used to int erpret this result as normal/abnormal . [facility] PasoExrjsxmYSLRZYZNDI0419-67-20 09:17:00 Test Item Value Reference Range Interpretation Comments Lymphocytes # (test code = Lymphocytes 1.7 1.0-5.5 #) [facility] PasoEvsfpkiAVKQVIXFRL5126-91-68 09:17:00 Test Item Value Reference Range Interpretation Comments Segs-Bands # (test code = Segs-Bands #) 5.8 1.5-8.1 [facility] PasoMxbcpcvSTPKHXENWJ0506-63-96 09:17:00 Test Item Value Reference Range Interpretation Comments Lymphocytes (test code = Lymphocytes) 20.7 20.0-40.0 [place] 101186-07-18 09:17:00 Test Item Value Reference Range Interpretation Comments Monocytes (test code = Monocytes) 8.4 2.0-12.0 [facility] PasoNicnwvbJIHHIPQNQN4852-82-20 09:17:00 Test Item Value Reference Range Interpretation Comments Eosinophils # (test code 0.1 See_Comment [A utomated message] The = Eosinophils #) system whic h generated this result tra nsmitted reference range : <=0.5. The reference r lily was not used to int erpret this result as normal/abnormal . [facility] PasoLdtkvnbHSZZJGOPWK8759-17-54 09:17:00 Test Item Value Reference Range Interpretation Comments Segs (test code = Segs) 69.3 45.0-75.0 [facility] PasoOjenrmmAZUBVHGCHT6836-65-92 09:17:00 Test Item Value Reference Range Interpretation Comments Hgb (test code = Hgb) 11.7 12.0-16.0 [facility] PasoPmwqfmcHLUOJHLZWN0177-76-20 09:17:00 Test Item Value Reference Range Interpretation Comments RBC (test code = RBC) 3.81 4.20-5.40 [facility] PasoBhymfcfBVHJJCZJXH0815-25-70 09:17:00 Test Item Value Reference Range Interpretation Comments WBC (test code = WBC) 8.4 3.7-10.4 [facility] PasoIxwttopJCQVVIJNZH7540-85-64 09:17:00 Test Item Value Reference Range Interpretation Comments MCH (test code = MCH) 30.7 pg 27.0-31.0 [facility] PasoBcvfogrOVZOWAZRNY3532-87-77 09:17:00 Test Item Value Reference Range Interpretation Comments MCV (test code = MCV) 89.3 80.0-98.0 [facility] PasoTbjbepiLNQZHPVXHF9949-38-98 09:17:00 Test Item Value Reference Range Interpretation Comments Hct (test code = Hct) 34.0 36.0-48.0 [facility] PasoPjwhlbbHUABZFPAWH7102-53-64 09:17:00 Test Item Value Reference Range Interpretation Comments Platelet (test code = Platelet) 143 133-450 [facility] PasoGisdfitLKVGVPUEOF3119-36-23 09:17:00 Test Item Value Reference Range Interpretation Comments RDW (test code = RDW) 13.2 11.5-14.5 [facility] PasoWpbgdtbSDFLWAIJGW5028-92-87 09:17:00 Test Item Value Reference Range Interpretation Comments MCHC (test code = MCHC) 34.4 32.0-36.0 [facility] PasoShapuhbUTEZPVTPUP5586-56-52 09:17:00 Test Item Value Reference Range Interpretation Comments MPV (test code = MPV) 10.3 7.4-10.4 [place] [address]386-07-18 09:17:00 Test Item Value Reference Range Interpretation Comments eGFR (test code = eGFR) 94 [facility]2016-07-18 09:17:00 Test Item Value Reference Range Interpretation Comments Globulin (test code = Globulin) 3.7 2.0-4.0 [place] [address]386-07-18 09:17:00 Test Item Value Reference Range Interpretation Comments ALT (test code = ALT) 24 See_Comment [Auto mated message] The system which ge nerated this result transmit shaun reference range : <=65. The reference range was not used to interpr et this result as jackeline l/abnormal. [facility]2016-07-18 09:17:00 Test Item Value Reference Range Interpretation Comments A/G Ratio (test code = A/G Ratio) 0.8 0.7-1.6 [facility]2016-07-18 09:17:00 Test Item Value Reference Range Interpretation Comments Alk Phos (test code = Alk Phos) 69 39-136 [facility]2016-07-18 09:17:00 Test Item Value Reference Range Interpretation Comments AST (test code = AST) 17 See_Comment [Auto mated message] The system which ge nerated this result transmit shaun reference range : <=37. The reference range was not used to interpr et this result as jackeline l/abnormal. [facility]2016-07-18 09:17:00 Test Item Value Reference Range Interpretation Comments Bili Total (test code = Bili Total) 0.6 0.2-1.3 [place] [address]386-07-18 09:17:00 Test Item Value Reference Range Interpretation Comments Glucose Lvl (test code = Glucose Lvl) 102 70-99 [facility]2016-07-18 09:17:00 Test Item Value Reference Range Interpretation Comments BUN (test code = BUN) 10 7-22 [place] [address]386-07-18 09:17:00 Test Item Value Reference Range Interpretation Comments Creatinine Lvl (test code = Creatinine 0.68 0.50-1.40 Lvl) [facility]2016-07-18 09:17:00 Test Item Value Reference Range Interpretation Comments Chloride Lvl (test code = Chloride Lvl) 107 95-109 [place] 523386-07-18 09:17:00 Test Item Value Reference Range Interpretation Comments Potassium Lvl (test code = Potassium 3.9 3.5-5.1 Lvl) [place] [address]386-07-18 09:17:00 Test Item Value Reference Range Interpretation Comments CO2 (test code = CO2) 29 24-32 [place] [address]386-07-18 09:17:00 Test Item Value Reference Range Interpretation Comments Sodium Lvl (test code = Sodium Lvl) 143 135-145 [facility]2016-07-18 09:17:00 Test Item Value Reference Range Interpretation Comments Total Protein (test code = Total 6.5 6.4-8.4 Protein) [facility]2016-07-18 09:17:00 Test Item Value Reference Range Interpretation Comments B/C Ratio (test code = B/C Ratio) 15 6-25 [place] [address]386-07-18 09:17:00 Test Item Value Reference Range Interpretation Comments Albumin Lvl (test code = Albumin Lvl) 2.8 3.5-5.0 [place] [address]386-07-18 09:17:00 Test Item Value Reference Range Interpretation Comments Calcium Lvl (test code = Calcium Lvl) 8.6 8.5-10.5 [place] [address]386-07-18 09:17:00 Test Item Value Reference Range Interpretation Comments AGAP (test code = AGAP) 10.9 10.0-20.0 [facility]2016-07-18 09:17:00 Test Item Value Reference Range Interpretation Comments eGFR (test code = eGFR) 94 [facility]2016-07-18 09:17:00 Test Item Value Reference Range Interpretation Comments Globulin (test code = Globulin) 3.7 2.0-4.0 [place] [address]386-07-18 09:17:00 Test Item Value Reference Range Interpretation Comments ALT (test code = ALT) 24 See_Comment [Auto mated message] The system which ge nerated this result transmit shaun reference range : <=65. The reference range was not used to interpr et this result as jackeline l/abnormal. [facility]2016-07-18 09:17:00 Test Item Value Reference Range Interpretation Comments A/G Ratio (test code = A/G Ratio) 0.8 0.7-1.6 [place] [address]386-07-18 09:17:00 Test Item Value Reference Range Interpretation Comments Alk Phos (test code = Alk Phos) 69 39-136 [facility]2016-07-18 09:17:00 Test Item Value Reference Range Interpretation Comments AST (test code = AST) 17 See_Comment [Auto mated message] The system which ge nerated this result transmit shaun reference range : <=37. The reference range was not used to interpr et this result as jackeline l/abnormal. [facility]2016-07-18 09:17:00 Test Item Value Reference Range Interpretation Comments Bili Total (test code = Bili Total) 0.6 0.2-1.3 [facility]2016-07-18 09:17:00 Test Item Value Reference Range Interpretation Comments Glucose Lvl (test code = Glucose Lvl) 102 70-99 [facility] PasoIvkrdzvPSTSLNZPBH1065-38-64 09:17:00 Test Item Value Reference Range Interpretation Comments Basophils (test code = 0.3 See_Comment [Aut omated message] The Basophils) system which ge nerated this result tra nsmitted reference range : <=1.0. The reference r lily was not used to int erpret this result as normal/abnormal . [facility]2016-07-18 09:17:00 Test Item Value Reference Range Interpretation Comments BUN (test code = BUN) 10 7-22 [place] [address]386-07-18 09:17:00 Test Item Value Reference Range Interpretation Comments Creatinine Lvl (test code = Creatinine 0.68 0.50-1.40 Lvl) [facility]2016-07-18 09:17:00 Test Item Value Reference Range Interpretation Comments Chloride Lvl (test code = Chloride Lvl) 107 95-109 [place] 523386-07-18 09:17:00 Test Item Value Reference Range Interpretation Comments Potassium Lvl (test code = Potassium 3.9 3.5-5.1 Lvl) [place] [address]386-07-18 09:17:00 Test Item Value Reference Range Interpretation Comments CO2 (test code = CO2) 29 24-32 [place] 523386-07-18 09:17:00 Test Item Value Reference Range Interpretation Comments Sodium Lvl (test code = Sodium Lvl) 143 135-145 [place] 523386-07-18 09:17:00 Test Item Value Reference Range Interpretation Comments Total Protein (test code = Total 6.5 6.4-8.4 Protein) [place] 523386-07-18 09:17:00 Test Item Value Reference Range Interpretation Comments B/C Ratio (test code = B/C Ratio) 15 6-25 [place] 523386-07-18 09:17:00 Test Item Value Reference Range Interpretation Comments Albumin Lvl (test code = Albumin Lvl) 2.8 3.5-5.0 [place] [address]386-07-18 09:17:00 Test Item Value Reference Range Interpretation Comments Calcium Lvl (test code = Calcium Lvl) 8.6 8.5-10.5 [facility]oSgatlijOEXZDIKFNW9976-56-65 09:17:00 Test Item Value Reference Range Interpretation Comments Eosinophils (test code = 1.3 See_Comment [A utomated message] The Eosinophils) system which ge nerated this result tra nsmitted reference range : <=4.0. The reference r lily was not used to int erpret this result as normal/abnormal . [facility]2016-07-18 09:17:00 Test Item Value Reference Range Interpretation Comments AGAP (test code = AGAP) 10.9 10.0-20.0 [facility] PasoJicvlhzAJMVJCRWNQ3536-73-08 09:17:00 Test Item Value Reference Range Interpretation Comments Basophils (test code = 0.3 See_Comment [Aut omated message] The Basophils) system which ge nerated this result tra nsmitted reference range : <=1.0. The reference r lily was not used to int erpret this result as normal/abnormal . [place] 101186-07-18 09:17:00 Test Item Value Reference Range Interpretation Comments Eosinophils (test code = 1.3 See_Comment [A utomated message] The Eosinophils) system which ge nerated this result tra nsmitted reference range : <=4.0. The reference r lily was not used to int erpret this result as normal/abnormal . [facility] PasoZnodtyxYMCXDYAZHM6089-94-32 09:17:00 Test Item Value Reference Range Interpretation Comments Monocytes # (test code 0.7 See_Comment [Aut omated message] The = Monocytes #) system which generated this result tra nsmitted reference range : <=0.8. The reference r lily was not used to int erpret this result as normal/abnormal . [facility] PasoZhhltdwDROCXKUTEN6287-36-65 09:17:00 Test Item Value Reference Range Interpretation Comments Lymphocytes # (test code = Lymphocytes 1.7 1.0-5.5 #) [facility] PasoHiygbrrITKKKWCXIR1007-08-80 09:17:00 Test Item Value Reference Range Interpretation Comments Segs-Bands # (test code = Segs-Bands #) 5.8 1.5-8.1 [facility] PasoMaujcakRJLTJACZSA6818-22-87 09:17:00 Test Item Value Reference Range Interpretation Comments Lymphocytes (test code = Lymphocytes) 20.7 20.0-40.0 [facility] PasoBccithmBBKPJESZTI2393-12-99 09:17:00 Test Item Value Reference Range Interpretation Comments Monocytes (test code = Monocytes) 8.4 2.0-12.0 [facility] PasoWhinlgtXODPBUCYXR6135-03-74 09:17:00 Test Item Value Reference Range Interpretation Comments Eosinophils # (test code 0.1 See_Comment [A utomated message] The = Eosinophils #) system whic h generated this result tra nsmitted reference range : <=0.5. The reference r lily was not used to int erpret this result as normal/abnormal . [facility] PasoPfuuoipCQGLIFKTRJ8318-47-68 09:17:00 Test Item Value Reference Range Interpretation Comments Segs (test code = Segs) 69.3 45.0-75.0 [facility] PasoXbjbvhxTSPFUYDBAG0824-44-00 09:17:00 Test Item Value Reference Range Interpretation Comments Monocytes # (test code 0.7 See_Comment [Aut omated message] The = Monocytes #) system which generated this result tra nsmitted reference range : <=0.8. The reference r lily was not used to int erpret this result as normal/abnormal . [facility] PasoWpdnafySDZUVUAEMO6202-42-37 09:17:00 Test Item Value Reference Range Interpretation Comments Hgb (test code = Hgb) 11.7 12.0-16.0 [facility] PasoFphxxmmBUFBNQZBQB0906-25-81 09:17:00 Test Item Value Reference Range Interpretation Comments RBC (test code = RBC) 3.81 4.20-5.40 [facility]oSdzbptwTBZFXLFEGG1379-26-80 09:17:00 Test Item Value Reference Range Interpretation Comments WBC (test code = WBC) 8.4 3.7-10.4 [facility] PasoIkmoetsASANNUWLBI9847-13-22 09:17:00 Test Item Value Reference Range Interpretation Comments MCH (test code = MCH) 30.7 pg 27.0-31.0 [facility] PasoEnwgwmvUUSTDTSSPM9549-07-04 09:17:00 Test Item Value Reference Range Interpretation Comments MCV (test code = MCV) 89.3 80.0-98.0 [place] 101186-07-18 09:17:00 Test Item Value Reference Range Interpretation Comments Hct (test code = Hct) 34.0 36.0-48.0 [facility] PasoRzfpzukIJYPINCRMA0729-19-69 09:17:00 Test Item Value Reference Range Interpretation Comments Platelet (test code = Platelet) 143 133-450 [facility] PasoLwuxiddXEBNHXDIXF1350-29-64 09:17:00 Test Item Value Reference Range Interpretation Comments RDW (test code = RDW) 13.2 11.5-14.5 [facility] PasoPplccpoVLWFSDWDXQ3409-65-09 09:17:00 Test Item Value Reference Range Interpretation Comments MCHC (test code = MCHC) 34.4 32.0-36.0 [facility] PasoBfsjjmqOYKYKXTPSD7365-59-12 09:17:00 Test Item Value Reference Range Interpretation Comments MPV (test code = MPV) 10.3 7.4-10.4 [facility] PasoGvnqkbeTKTLWZTIFH4059-69-89 09:17:00 Test Item Value Reference Range Interpretation Comments Lymphocytes # (test code = Lymphocytes 1.7 1.0-5.5 #) [facility] PasoPhwabqbWVMFKSYTKJ8463-44-56 09:17:00 Test Item Value Reference Range Interpretation Comments Segs-Bands # (test code = Segs-Bands #) 5.8 1.5-8.1 [facility] PasoNekuqqsSZQCEKTKFZ0108-51-38 09:17:00 Test Item Value Reference Range Interpretation Comments Lymphocytes (test code = Lymphocytes) 20.7 20.0-40.0 [facility] PasoSwnjayfGQLGEVBJRG1300-01-52 09:17:00 Test Item Value Reference Range Interpretation Comments Monocytes (test code = Monocytes) 8.4 2.0-12.0 [facility] PasoHfmybhxMNGKFVOVZG5057-59-82 09:17:00 Test Item Value Reference Range Interpretation Comments Eosinophils # (test code 0.1 See_Comment [A utomated message] The = Eosinophils #) system whic h generated this result tra nsmitted reference range : <=0.5. The reference r lily was not used to int erpret this result as normal/abnormal . [facility] PasoPjxscqnUBQYRZRXZX1376-71-81 09:17:00 Test Item Value Reference Range Interpretation Comments Segs (test code = Segs) 69.3 45.0-75.0 [facility] PasoSrpumjlTXOSOFVNCL5513-79-42 09:17:00 Test Item Value Reference Range Interpretation Comments Hgb (test code = Hgb) 11.7 12.0-16.0 [facility] PasoUdroxmmEEQOFBATHV8210-31-49 09:17:00 Test Item Value Reference Range Interpretation Comments RBC (test code = RBC) 3.81 4.20-5.40 [facility] PasoBadxaxhASOZZFEKFC6091-77-34 09:17:00 Test Item Value Reference Range Interpretation Comments WBC (test code = WBC) 8.4 3.7-10.4 [facility] PasoTowvxhsQJGGNJILBD4395-13-11 09:17:00 Test Item Value Reference Range Interpretation Comments MCH (test code = MCH) 30.7 pg 27.0-31.0 [facility] PasoVfrsdquIPYQOUFDFT3240-28-53 09:17:00 Test Item Value Reference Range Interpretation Comments MCV (test code = MCV) 89.3 80.0-98.0 [facility] PasoKpnkbheNDOBXMLALG4541-60-38 09:17:00 Test Item Value Reference Range Interpretation Comments Hct (test code = Hct) 34.0 36.0-48.0 [facility] PasoCbtjmsgNQCIQSRDPX9178-84-48 09:17:00 Test Item Value Reference Range Interpretation Comments Platelet (test code = Platelet) 143 133-450 [facility] PasoXdhkxkxRTPBGNHPFU7659-06-81 09:17:00 Test Item Value Reference Range Interpretation Comments RDW (test code = RDW) 13.2 11.5-14.5 [facility] PasoCkrvhwiAZWDRFJKWE0622-39-67 09:17:00 Test Item Value Reference Range Interpretation Comments MCHC (test code = MCHC) 34.4 32.0-36.0 [facility] PasoClhmogvOJOXUMBTTU2383-85-54 09:17:00 Test Item Value Reference Range Interpretation Comments MPV (test code = MPV) 10.3 7.4-10.4 [place] 523386-07-18 09:17:00 Test Item Value Reference Range Interpretation Comments eGFR (test code = eGFR) 94 [facility]2016-07-18 09:17:00 Test Item Value Reference Range Interpretation Comments Globulin (test code = Globulin) 3.7 2.0-4.0 [place] 523386-07-18 09:17:00 Test Item Value Reference Range Interpretation Comments ALT (test code = ALT) 24 See_Comment [Auto mated message] The system which ge nerated this result transmit shaun reference range : <=65. The reference range was not used to interpr et this result as jackeline l/abnormal. [facility]2016-07-18 09:17:00 Test Item Value Reference Range Interpretation Comments A/G Ratio (test code = A/G Ratio) 0.8 0.7-1.6 [place] 523386-07-18 09:17:00 Test Item Value Reference Range Interpretation Comments Alk Phos (test code = Alk Phos) 69 39-136 [facility]2016-07-18 09:17:00 Test Item Value Reference Range Interpretation Comments AST (test code = AST) 17 See_Comment [Auto mated message] The system which ge nerated this result transmit shaun reference range : <=37. The reference range was not used to interpr et this result as jackeline l/abnormal. [place] 523386-07-18 09:17:00 Test Item Value Reference Range Interpretation Comments Bili Total (test code = Bili Total) 0.6 0.2-1.3 [place] 523386-07-18 09:17:00 Test Item Value Reference Range Interpretation Comments Glucose Lvl (test code = Glucose Lvl) 102 70-99 [place] 523386-07-18 09:17:00 Test Item Value Reference Range Interpretation Comments BUN (test code = BUN) 10 7-22 [facility]2016-07-18 09:17:00 Test Item Value Reference Range Interpretation Comments Creatinine Lvl (test code = Creatinine 0.68 0.50-1.40 Lvl) [facility]2016-07-18 09:17:00 Test Item Value Reference Range Interpretation Comments Chloride Lvl (test code = Chloride Lvl) 107 95-109 [facility]2016-07-18 09:17:00 Test Item Value Reference Range Interpretation Comments Potassium Lvl (test code = Potassium 3.9 3.5-5.1 Lvl) [place] 523386-07-18 09:17:00 Test Item Value Reference Range Interpretation Comments CO2 (test code = CO2) 29 24-32 [place] 523386-07-18 09:17:00 Test Item Value Reference Range Interpretation Comments Sodium Lvl (test code = Sodium Lvl) 143 135-145 [facility]2016-07-18 09:17:00 Test Item Value Reference Range Interpretation Comments Total Protein (test code = Total 6.5 6.4-8.4 Protein) [facility]2016-07-18 09:17:00 Test Item Value Reference Range Interpretation Comments B/C Ratio (test code = B/C Ratio) 15 6-25 [place] 523386-07-18 09:17:00 Test Item Value Reference Range Interpretation Comments Albumin Lvl (test code = Albumin Lvl) 2.8 3.5-5.0 [facility]2016-07-18 09:17:00 Test Item Value Reference Range Interpretation Comments Calcium Lvl (test code = Calcium Lvl) 8.6 8.5-10.5 [place] 523386-07-18 09:17:00 Test Item Value Reference Range Interpretation Comments AGAP (test code = AGAP) 10.9 10.0-20.0 [facility] PasoTlsohhnXHVQZOIYAN4725-57-19 09:17:00 Test Item Value Reference Range Interpretation Comments Basophils (test code = 0.3 See_Comment [Aut omated message] The Basophils) system which ge nerated this result tra nsmitted reference range : <=1.0. The reference r lily was not used to int erpret this result as normal/abnormal . [place] 101186-07-18 09:17:00 Test Item Value Reference Range Interpretation Comments Eosinophils (test code = 1.3 See_Comment [A utomated message] The Eosinophils) system which ge nerated this result tra nsmitted reference range : <=4.0. The reference r lily was not used to int erpret this result as normal/abnormal . [facility] PasoNyjxwspDSYPSNZKJB3937-66-09 09:17:00 Test Item Value Reference Range Interpretation Comments Monocytes # (test code 0.7 See_Comment [Aut omated message] The = Monocytes #) system which generated this result tra nsmitted reference range : <=0.8. The reference r lily was not used to int erpret this result as normal/abnormal . [facility] PasoBmlricpOSGVZRWGVU3007-91-14 09:17:00 Test Item Value Reference Range Interpretation Comments Lymphocytes # (test code = Lymphocytes 1.7 1.0-5.5 #) [facility] PasoFdonvyzPHXFXFJLIZ3764-01-98 09:17:00 Test Item Value Reference Range Interpretation Comments Segs-Bands # (test code = Segs-Bands #) 5.8 1.5-8.1 [facility] PasoUgwmvboPGUFSUTLBO3021-71-56 09:17:00 Test Item Value Reference Range Interpretation Comments Lymphocytes (test code = Lymphocytes) 20.7 20.0-40.0 [facility] PasoWvzgxrsVVKMFZUTGH7777-51-94 09:17:00 Test Item Value Reference Range Interpretation Comments Monocytes (test code = Monocytes) 8.4 2.0-12.0 [facility] PasoYyejsrtTUSFTACVMG3801-03-55 09:17:00 Test Item Value Reference Range Interpretation Comments Eosinophils # (test code 0.1 See_Comment [A utomated message] The = Eosinophils #) system whic h generated this result tra nsmitted reference range : <=0.5. The reference r lily was not used to int erpret this result as normal/abnormal . [facility] PasoKrdszerGYQGSNONGR6017-30-88 09:17:00 Test Item Value Reference Range Interpretation Comments Segs (test code = Segs) 69.3 45.0-75.0 [facility] PasoPikwqmcYYHNKDDDEE7711-50-79 09:17:00 Test Item Value Reference Range Interpretation Comments Hgb (test code = Hgb) 11.7 12.0-16.0 [facility] PasoBhmpjgwUTIIJHWTIV4864-23-59 09:17:00 Test Item Value Reference Range Interpretation Comments RBC (test code = RBC) 3.81 4.20-5.40 [facility] PasoUqnskrpUNQYQEAAZO8644-53-43 09:17:00 Test Item Value Reference Range Interpretation Comments WBC (test code = WBC) 8.4 3.7-10.4 [facility] PasoRwuncwvHWWOPCNKBX7283-91-61 09:17:00 Test Item Value Reference Range Interpretation Comments MCH (test code = MCH) 30.7 pg 27.0-31.0 [facility] PasoYmlbbmtGXPKXQOMUG3026-91-60 09:17:00 Test Item Value Reference Range Interpretation Comments MCV (test code = MCV) 89.3 80.0-98.0 [facility] PasoAxjqwqaGAKDARKQOP4922-22-15 09:17:00 Test Item Value Reference Range Interpretation Comments Hct (test code = Hct) 34.0 36.0-48.0 [facility] PasoNbpttvaXLSEPCLZLS8692-94-73 09:17:00 Test Item Value Reference Range Interpretation Comments Platelet (test code = Platelet) 143 133-450 [facility] PasoNgskzkkDGNIUORNPB2446-92-10 09:17:00 Test Item Value Reference Range Interpretation Comments RDW (test code = RDW) 13.2 11.5-14.5 [facility] PasoWrdyatgDSGOEBDESV9972-48-62 09:17:00 Test Item Value Reference Range Interpretation Comments MCHC (test code = MCHC) 34.4 32.0-36.0 [facility] PasoEhsvclrTOZYWLJBEB9274-64-85 09:17:00 Test Item Value Reference Range Interpretation Comments MPV (test code = MPV) 10.3 7.4-10.4 [facility]2016-07-18 09:17:00 Test Item Value Reference Range Interpretation Comments eGFR (test code = eGFR) 94 [facility] FQOIW8074-02-40 09:17:00 Test Item Value Reference Range Interpretation Comments Globulin (test code = Globulin) 3.7 2.0-4.0 [facility] TISUH0936-36-62 09:17:00 Test Item Value Reference Range Interpretation Comments ALT (test code = ALT) 24 See_Comment [Auto mated message] The system which ge nerated this result transmit shaun reference range : <=65. The reference range was not used to interpr et this result as jackeline l/abnormal. [facility]2016-07-18 09:17:00 Test Item Value Reference Range Interpretation Comments A/G Ratio (test code = A/G Ratio) 0.8 0.7-1.6 [facility]2016-07-18 09:17:00 Test Item Value Reference Range Interpretation Comments Alk Phos (test code = Alk Phos) 69 39-136 [facility]2016-07-18 09:17:00 Test Item Value Reference Range Interpretation Comments AST (test code = AST) 17 See_Comment [Auto mated message] The system which ge nerated this result transmit shaun reference range : <=37. The reference range was not used to interpr et this result as jackeilne l/abnormal. [place] 523386-07-18 09:17:00 Test Item Value Reference Range Interpretation Comments Bili Total (test code = Bili Total) 0.6 0.2-1.3 [place] 523386-07-18 09:17:00 Test Item Value Reference Range Interpretation Comments Glucose Lvl (test code = Glucose Lvl) 102 70-99 [place] 523386-07-18 09:17:00 Test Item Value Reference Range Interpretation Comments BUN (test code = BUN) 10 7-22 [place] 523386-07-18 09:17:00 Test Item Value Reference Range Interpretation Comments Creatinine Lvl (test code = Creatinine 0.68 0.50-1.40 Lvl) [facility]2016-07-18 09:17:00 Test Item Value Reference Range Interpretation Comments Chloride Lvl (test code = Chloride Lvl) 107 95-109 [facility]2016-07-18 09:17:00 Test Item Value Reference Range Interpretation Comments Potassium Lvl (test code = Potassium 3.9 3.5-5.1 Lvl) [facility]2016-07-18 09:17:00 Test Item Value Reference Range Interpretation Comments CO2 (test code = CO2) 29 24-32 [place] 523386-07-18 09:17:00 Test Item Value Reference Range Interpretation Comments Sodium Lvl (test code = Sodium Lvl) 143 135-145 [place] 523386-07-18 09:17:00 Test Item Value Reference Range Interpretation Comments Total Protein (test code = Total 6.5 6.4-8.4 Protein) [facility]2016-07-18 09:17:00 Test Item Value Reference Range Interpretation Comments B/C Ratio (test code = B/C Ratio) 15 6-25 [place] 523386-07-18 09:17:00 Test Item Value Reference Range Interpretation Comments Albumin Lvl (test code = Albumin Lvl) 2.8 3.5-5.0 [facility]2016-07-18 09:17:00 Test Item Value Reference Range Interpretation Comments Calcium Lvl (test code = Calcium Lvl) 8.6 8.5-10.5 [facility]2016-07-18 09:17:00 Test Item Value Reference Range Interpretation Comments AGAP (test code = AGAP) 10.9 10.0-20.0 [facility] PasoNqkcrthGVGZAJNZYM8354-78-72 09:17:00 Test Item Value Reference Range Interpretation Comments Basophils (test code = 0.3 See_Comment [Aut omated message] The Basophils) system which ge nerated this result tra nsmitted reference range : <=1.0. The reference r lily was not used to int erpret this result as normal/abnormal . [facility] PasoDxfuehwPKFFUXNYEW8085-19-38 09:17:00 Test Item Value Reference Range Interpretation Comments Eosinophils (test code = 1.3 See_Comment [A utomated message] The Eosinophils) system which ge nerated this result tra nsmitted reference range : <=4.0. The reference r lily was not used to int erpret this result as normal/abnormal . [facility] PasoVxjtircBXPXUJUCMN5386-07-71 09:17:00 Test Item Value Reference Range Interpretation Comments Monocytes # (test code 0.7 See_Comment [Aut omated message] The = Monocytes #) system which generated this result tra nsmitted reference range : <=0.8. The reference r lily was not used to int erpret this result as normal/abnormal . [facility] PasoVhaskmtPMARBVBXKK6989-62-42 09:17:00 Test Item Value Reference Range Interpretation Comments Lymphocytes # (test code = Lymphocytes 1.7 1.0-5.5 #) [facility] PasoAprojkyWKSCWFQBBJ5877-61-64 09:17:00 Test Item Value Reference Range Interpretation Comments Segs-Bands # (test code = Segs-Bands #) 5.8 1.5-8.1 [facility] PasoBblkmduVZMHXULIIW8550-26-24 09:17:00 Test Item Value Reference Range Interpretation Comments Lymphocytes (test code = Lymphocytes) 20.7 20.0-40.0 [facility] PasoFoxepjzTUJLYMVWEC9997-62-00 09:17:00 Test Item Value Reference Range Interpretation Comments Monocytes (test code = Monocytes) 8.4 2.0-12.0 [facility] PasoWsgvhrwYSYUISNMHJ5169-85-52 09:17:00 Test Item Value Reference Range Interpretation Comments Eosinophils # (test code 0.1 See_Comment [A utomated message] The = Eosinophils #) system [employer] h generated this result tra nsmitted reference range : <=0.5. The reference r lily was not used to int erpret this result as normal/abnormal . [facility] PasoYpmiajfSUDEUZCTUL1339-62-06 09:17:00 Test Item Value Reference Range Interpretation Comments Segs (test code = Segs) 69.3 45.0-75.0 [facility] PasoTgpplecDAEOKIPMGV3935-91-97 09:17:00 Test Item Value Reference Range Interpretation Comments Hgb (test code = Hgb) 11.7 12.0-16.0 [facility] PasoCapsqldKXVMUBBXPO9112-83-65 09:17:00 Test Item Value Reference Range Interpretation Comments RBC (test code = RBC) 3.81 4.20-5.40 [facility] PasoOpbqlrfGQAHJNHBOU3381-81-86 09:17:00 Test Item Value Reference Range Interpretation Comments WBC (test code = WBC) 8.4 3.7-10.4 [facility] PasoWrfaevgIJRBTKVJGA0450-22-93 09:17:00 Test Item Value Reference Range Interpretation Comments MCH (test code = MCH) 30.7 pg 27.0-31.0 [facility] PasoVqeafecEDYRRPVJMA4260-93-46 09:17:00 Test Item Value Reference Range Interpretation Comments MCV (test code = MCV) 89.3 80.0-98.0 [facility] PasoLgykbifWHSVGKSLWQ3650-31-43 09:17:00 Test Item Value Reference Range Interpretation Comments Hct (test code = Hct) 34.0 36.0-48.0 [facility] PasoBizlrgrOSJSGXVUSX4724-17-09 09:17:00 Test Item Value Reference Range Interpretation Comments Platelet (test code = Platelet) 143 133-450 [facility] PasoEsfzwqlRWMAJLBGHH6138-06-23 09:17:00 Test Item Value Reference Range Interpretation Comments RDW (test code = RDW) 13.2 11.5-14.5 [facility] PasoGvmodprKFFFPBZLOX3895-22-03 09:17:00 Test Item Value Reference Range Interpretation Comments MCHC (test code = MCHC) 34.4 32.0-36.0 [facility] PasoIosccoiXKRWOMATFC7428-49-11 09:17:00 Test Item Value Reference Range Interpretation Comments MPV (test code = MPV) 10.3 7.4-10.4 [facility]2016-07-18 09:17:00 Test Item Value Reference Range Interpretation Comments eGFR (test code = eGFR) 94 [facility]2016-07-18 09:17:00 Test Item Value Reference Range Interpretation Comments Globulin (test code = Globulin) 3.7 2.0-4.0 [facility]2016-07-18 09:17:00 Test Item Value Reference Range Interpretation Comments ALT (test code = ALT) 24 See_Comment [Auto mated message] The system which ge nerated this result transmit shaun reference range : <=65. The reference range was not used to interpr et this result as jackeline l/abnormal. [facility]2016-07-18 09:17:00 Test Item Value Reference Range Interpretation Comments A/G Ratio (test code = A/G Ratio) 0.8 0.7-1.6 [facility]2016-07-18 09:17:00 Test Item Value Reference Range Interpretation Comments Alk Phos (test code = Alk Phos) 69 39-136 [facility]2016-07-18 09:17:00 Test Item Value Reference Range Interpretation Comments AST (test code = AST) 17 See_Comment [Auto mated message] The system which ge nerated this result transmit shaun reference range : <=37. The reference range was not used to interpr et this result as jackeline l/abnormal. [facility]2016-07-18 09:17:00 Test Item Value Reference Range Interpretation Comments Bili Total (test code = Bili Total) 0.6 0.2-1.3 [place] 523386-07-18 09:17:00 Test Item Value Reference Range Interpretation Comments Glucose Lvl (test code = Glucose Lvl) 102 70-99 [facility]2016-07-18 09:17:00 Test Item Value Reference Range Interpretation Comments BUN (test code = BUN) 10 7-22 [facility]2016-07-18 09:17:00 Test Item Value Reference Range Interpretation Comments Creatinine Lvl (test code = Creatinine 0.68 0.50-1.40 Lvl) [facility]2016-07-18 09:17:00 Test Item Value Reference Range Interpretation Comments Chloride Lvl (test code = Chloride Lvl) 107 95-109 [facility]2016-07-18 09:17:00 Test Item Value Reference Range Interpretation Comments Potassium Lvl (test code = Potassium 3.9 3.5-5.1 Lvl) [facility]2016-07-18 09:17:00 Test Item Value Reference Range Interpretation Comments CO2 (test code = CO2) 29 24-32 [facility]2016-07-18 09:17:00 Test Item Value Reference Range Interpretation Comments Sodium Lvl (test code = Sodium Lvl) 143 135-145 [facility]2016-07-18 09:17:00 Test Item Value Reference Range Interpretation Comments Total Protein (test code = Total 6.5 6.4-8.4 Protein) [facility]2016-07-18 09:17:00 Test Item Value Reference Range Interpretation Comments B/C Ratio (test code = B/C Ratio) 15 6-25 [facility]2016-07-18 09:17:00 Test Item Value Reference Range Interpretation Comments Albumin Lvl (test code = Albumin Lvl) 2.8 3.5-5.0 [facility]2016-07-18 09:17:00 Test Item Value Reference Range Interpretation Comments Calcium Lvl (test code = Calcium Lvl) 8.6 8.5-10.5 [facility]2016-07-18 09:17:00 Test Item Value Reference Range Interpretation Comments AGAP (test code = AGAP) 10.9 10.0-20.0 [facility] PasoUfdvuoyIQAQQYSTZZ8605-40-28 09:17:00 Test Item Value Reference Range Interpretation Comments Basophils (test code = 0.3 See_Comment [Aut omated message] The Basophils) system which ge nerated this result tra nsmitted reference range : <=1.0. The reference r lily was not used to int erpret this result as normal/abnormal . [facility] PasoHtdsaolAKOTRFGHCT6650-67-61 09:17:00 Test Item Value Reference Range Interpretation Comments Eosinophils (test code = 1.3 See_Comment [A utomated message] The Eosinophils) system which ge nerated this result tra nsmitted reference range : <=4.0. The reference r lily was not used to int erpret this result as normal/abnormal . [facility] PasoDootkteMCXVLAUBAF6039-82-75 09:17:00 Test Item Value Reference Range Interpretation Comments Monocytes # (test code 0.7 See_Comment [Aut omated message] The = Monocytes #) system which generated this result tra nsmitted reference range : <=0.8. The reference r lily was not used to int erpret this result as normal/abnormal . [facility] PasoUekrrfrNNOVEGUMRQ8055-53-32 09:17:00 Test Item Value Reference Range Interpretation Comments Lymphocytes # (test code = Lymphocytes 1.7 1.0-5.5 #) [facility] PasoBhtjkmiCRIQUQBGRG5750-17-93 09:17:00 Test Item Value Reference Range Interpretation Comments Segs-Bands # (test code = Segs-Bands #) 5.8 1.5-8.1 [facility] PasoTkypcyfYTNZBJLOSU5076-17-84 09:17:00 Test Item Value Reference Range Interpretation Comments Lymphocytes (test code = Lymphocytes) 20.7 20.0-40.0 [facility] PasoPuxiihtHCULRSKMET7136-28-17 09:17:00 Test Item Value Reference Range Interpretation Comments Monocytes (test code = Monocytes) 8.4 2.0-12.0 [facility] PasoYlkgrzmYRCTDNNKXQ6542-42-63 09:17:00 Test Item Value Reference Range Interpretation Comments Eosinophils # (test code 0.1 See_Comment [A utomated message] The = Eosinophils #) system ic h generated this result tra nsmitted reference range : <=0.5. The reference r lily was not used to int erpret this result as normal/abnormal . [facility] PasoOorvwaoVBIEXWOULP8415-77-24 09:17:00 Test Item Value Reference Range Interpretation Comments Segs (test code = Segs) 69.3 45.0-75.0 [facility] PasoMpjlouwAECIPRHONI8468-72-44 09:17:00 Test Item Value Reference Range Interpretation Comments Hgb (test code = Hgb) 11.7 12.0-16.0 [facility] PasoXdhikzbJAVUNCYMLJ2057-53-85 09:17:00 Test Item Value Reference Range Interpretation Comments RBC (test code = RBC) 3.81 4.20-5.40 [facility] PasoFzucnbrQTXLHYJOPC1793-78-10 09:17:00 Test Item Value Reference Range Interpretation Comments WBC (test code = WBC) 8.4 3.7-10.4 [facility] PasoDyolhrlYAAWXEZOTS6931-90-32 09:17:00 Test Item Value Reference Range Interpretation Comments MCH (test code = MCH) 30.7 pg 27.0-31.0 [facility] PasoQsayxigQENFPIKLYV2060-38-65 09:17:00 Test Item Value Reference Range Interpretation Comments MCV (test code = MCV) 89.3 80.0-98.0 [facility] PasoLbwbrsyDKLVZJUQMX9394-50-02 09:17:00 Test Item Value Reference Range Interpretation Comments Hct (test code = Hct) 34.0 36.0-48.0 [facility] PasoFsycihwKHFSXXWJIH8027-84-55 09:17:00 Test Item Value Reference Range Interpretation Comments Platelet (test code = Platelet) 143 133-450 [facility] PasoQhyauksFSNIYWTYHD7715-17-38 09:17:00 Test Item Value Reference Range Interpretation Comments RDW (test code = RDW) 13.2 11.5-14.5 [facility] PasoJrjymgaOYHFECZUTO2107-17-96 09:17:00 Test Item Value Reference Range Interpretation Comments MCHC (test code = MCHC) 34.4 32.0-36.0 [facility] PasoKzrvoqzOADNRYTDNL4043-73-81 09:17:00 Test Item Value Reference Range Interpretation Comments MPV (test code = MPV) 10.3 7.4-10.4 [facility]2016-07-18 09:17:00 Test Item Value Reference Range Interpretation Comments eGFR (test code = eGFR) 94 [facility]2016-07-18 09:17:00 Test Item Value Reference Range Interpretation Comments Globulin (test code = Globulin) 3.7 2.0-4.0 [facility]2016-07-18 09:17:00 Test Item Value Reference Range Interpretation Comments ALT (test code = ALT) 24 See_Comment [Auto mated message] The system which ge nerated this result transmit shaun reference range : <=65. The reference range was not used to interpr et this result as jackeline l/abnormal. [facility]2016-07-18 09:17:00 Test Item Value Reference Range Interpretation Comments A/G Ratio (test code = A/G Ratio) 0.8 0.7-1.6 [place] 523386-07-18 09:17:00 Test Item Value Reference Range Interpretation Comments Alk Phos (test code = Alk Phos) 69 39-136 [facility]2016-07-18 09:17:00 Test Item Value Reference Range Interpretation Comments AST (test code = AST) 17 See_Comment [Auto mated message] The system which ge nerated this result transmit shaun reference range : <=37. The reference range was not used to interpr et this result as jackeline l/abnormal. [facility]2016-07-18 09:17:00 Test Item Value Reference Range Interpretation Comments Bili Total (test code = Bili Total) 0.6 0.2-1.3 [place] 523386-07-18 09:17:00 Test Item Value Reference Range Interpretation Comments Glucose Lvl (test code = Glucose Lvl) 102 70-99 [facility]2016-07-18 09:17:00 Test Item Value Reference Range Interpretation Comments BUN (test code = BUN) 10 7-22 [facility]2016-07-18 09:17:00 Test Item Value Reference Range Interpretation Comments Creatinine Lvl (test code = Creatinine 0.68 0.50-1.40 Lvl) [place] 523386-07-18 09:17:00 Test Item Value Reference Range Interpretation Comments Chloride Lvl (test code = Chloride Lvl) 107 95-109 [facility]2016-07-18 09:17:00 Test Item Value Reference Range Interpretation Comments Potassium Lvl (test code = Potassium 3.9 3.5-5.1 Lvl) [place] 523386-07-18 09:17:00 Test Item Value Reference Range Interpretation Comments CO2 (test code = CO2) 29 24-32 [place] 523386-07-18 09:17:00 Test Item Value Reference Range Interpretation Comments Sodium Lvl (test code = Sodium Lvl) 143 135-145 [facility]2016-07-18 09:17:00 Test Item Value Reference Range Interpretation Comments Total Protein (test code = Total 6.5 6.4-8.4 Protein) [place] 523386-07-18 09:17:00 Test Item Value Reference Range Interpretation Comments B/C Ratio (test code = B/C Ratio) 15 6-25 [place] 523386-07-18 09:17:00 Test Item Value Reference Range Interpretation Comments Albumin Lvl (test code = Albumin Lvl) 2.8 3.5-5.0 [facility]2016-07-18 09:17:00 Test Item Value Reference Range Interpretation Comments Calcium Lvl (test code = Calcium Lvl) 8.6 8.5-10.5 [facility]2016-07-18 09:17:00 Test Item Value Reference Range Interpretation Comments AGAP (test code = AGAP) 10.9 10.0-20.0 [facility] PasoLqohwpiNENEHNJDVH1603-03-76 09:17:00 Test Item Value Reference Range Interpretation Comments Basophils (test code = 0.3 See_Comment [Aut omated message] The Basophils) system which ge nerated this result tra nsmitted reference range : <=1.0. The reference r lily was not used to int erpret this result as normal/abnormal . [facility] PasoWflaouyFGKKAVHWPH6118-10-36 09:17:00 Test Item Value Reference Range Interpretation Comments Eosinophils (test code = 1.3 See_Comment [A utomated message] The Eosinophils) system which ge nerated this result tra nsmitted reference range : <=4.0. The reference r lily was not used to int erpret this result as normal/abnormal . [facility] PasoGwkjntnASWMRLVWWX6361-71-49 09:17:00 Test Item Value Reference Range Interpretation Comments Monocytes # (test code 0.7 See_Comment [Aut omated message] The = Monocytes #) system which generated this result tra nsmitted reference range : <=0.8. The reference r lily was not used to int erpret this result as normal/abnormal . [place] 101186-07-18 09:17:00 Test Item Value Reference Range Interpretation Comments Lymphocytes # (test code = Lymphocytes 1.7 1.0-5.5 #) [facility] PasoCmnsmyrKQMXHSCMGC5331-63-20 09:17:00 Test Item Value Reference Range Interpretation Comments Segs-Bands # (test code = Segs-Bands #) 5.8 1.5-8.1 [facility] PasoWvvkmtjKZZVJEWWMR9328-46-40 09:17:00 Test Item Value Reference Range Interpretation Comments Lymphocytes (test code = Lymphocytes) 20.7 20.0-40.0 [facility] PasoOygobcbDSKIHCPUPB6325-22-94 09:17:00 Test Item Value Reference Range Interpretation Comments Monocytes (test code = Monocytes) 8.4 2.0-12.0 [facility] PasoLterbohEWIPZQWMTI9432-00-97 09:17:00 Test Item Value Reference Range Interpretation Comments Eosinophils # (test code 0.1 See_Comment [A utomated message] The = Eosinophils #) system v2tel h generated this result tra nsmitted reference range : <=0.5. The reference r lily was not used to int erpret this result as normal/abnormal . [facility] PasoZcvudhcWBOLHSKBTG7431-55-38 09:17:00 Test Item Value Reference Range Interpretation Comments Segs (test code = Segs) 69.3 45.0-75.0 [facility] PasoBwqoqltXVVQGGEWXJ2047-98-20 09:17:00 Test Item Value Reference Range Interpretation Comments Hgb (test code = Hgb) 11.7 12.0-16.0 [facility] PasoKlquxriAMYNZSRDGF3641-64-32 09:17:00 Test Item Value Reference Range Interpretation Comments RBC (test code = RBC) 3.81 4.20-5.40 [facility] PasoRpyjwgkQGBGVFXCXT2365-46-70 09:17:00 Test Item Value Reference Range Interpretation Comments WBC (test code = WBC) 8.4 3.7-10.4 [facility] PasoVedmkenJYNSMOVVSM1400-07-28 09:17:00 Test Item Value Reference Range Interpretation Comments MCH (test code = MCH) 30.7 pg 27.0-31.0 [facility] PasoRgadcbrOXPMWKZMHT2670-53-89 09:17:00 Test Item Value Reference Range Interpretation Comments MCV (test code = MCV) 89.3 80.0-98.0 [facility] PasoEwlqshkBCVQCUFTFW2080-77-36 09:17:00 Test Item Value Reference Range Interpretation Comments Hct (test code = Hct) 34.0 36.0-48.0 [place] 101186-07-18 09:17:00 Test Item Value Reference Range Interpretation Comments Platelet (test code = Platelet) 143 133-450 [facility] PasoXcfvrkuTHXBVWBDPE6605-62-18 09:17:00 Test Item Value Reference Range Interpretation Comments RDW (test code = RDW) 13.2 11.5-14.5 [place] 101186-07-18 09:17:00 Test Item Value Reference Range Interpretation Comments MCHC (test code = MCHC) 34.4 32.0-36.0 [place] 101186-07-18 09:17:00 Test Item Value Reference Range Interpretation Comments MPV (test code = MPV) 10.3 7.4-10.4 [place] 523386-07-18 09:17:00 Test Item Value Reference Range Interpretation Comments eGFR (test code = eGFR) 94 [facility]2016-07-18 09:17:00 Test Item Value Reference Range Interpretation Comments Globulin (test code = Globulin) 3.7 2.0-4.0 [place] 523386-07-18 09:17:00 Test Item Value Reference Range Interpretation Comments ALT (test code = ALT) 24 See_Comment [Auto mated message] The system which ge nerated this result transmit shaun reference range : <=65. The reference range was not used to interpr et this result as jackeline l/abnormal. [facility]2016-07-18 09:17:00 Test Item Value Reference Range Interpretation Comments A/G Ratio (test code = A/G Ratio) 0.8 0.7-1.6 [place] 523386-07-18 09:17:00 Test Item Value Reference Range Interpretation Comments Alk Phos (test code = Alk Phos) 69 39-136 [place] 523386-07-18 09:17:00 Test Item Value Reference Range Interpretation Comments AST (test code = AST) 17 See_Comment [Auto mated message] The system which ge nerated this result transmit shaun reference range : <=37. The reference range was not used to interpr et this result as jackeline l/abnormal. [place] 523386-07-18 09:17:00 Test Item Value Reference Range Interpretation Comments Bili Total (test code = Bili Total) 0.6 0.2-1.3 [facility]2016-07-18 09:17:00 Test Item Value Reference Range Interpretation Comments Glucose Lvl (test code = Glucose Lvl) 102 70-99 [facility]2016-07-18 09:17:00 Test Item Value Reference Range Interpretation Comments BUN (test code = BUN) 10 7-22 [facility]2016-07-18 09:17:00 Test Item Value Reference Range Interpretation Comments Creatinine Lvl (test code = Creatinine 0.68 0.50-1.40 Lvl) [facility]2016-07-18 09:17:00 Test Item Value Reference Range Interpretation Comments Chloride Lvl (test code = Chloride Lvl) 107 95-109 [facility]2016-07-18 09:17:00 Test Item Value Reference Range Interpretation Comments Potassium Lvl (test code = Potassium 3.9 3.5-5.1 Lvl) [facility]2016-07-18 09:17:00 Test Item Value Reference Range Interpretation Comments CO2 (test code = CO2) 29 24-32 [facility]2016-07-18 09:17:00 Test Item Value Reference Range Interpretation Comments Sodium Lvl (test code = Sodium Lvl) 143 135-145 [facility]2016-07-18 09:17:00 Test Item Value Reference Range Interpretation Comments Total Protein (test code = Total 6.5 6.4-8.4 Protein) [facility]2016-07-18 09:17:00 Test Item Value Reference Range Interpretation Comments B/C Ratio (test code = B/C Ratio) 15 6-25 [facility]2016-07-18 09:17:00 Test Item Value Reference Range Interpretation Comments Albumin Lvl (test code = Albumin Lvl) 2.8 3.5-5.0 [facility]2016-07-18 09:17:00 Test Item Value Reference Range Interpretation Comments Calcium Lvl (test code = Calcium Lvl) 8.6 8.5-10.5 [place] 523386-07-18 09:17:00 Test Item Value Reference Range Interpretation Comments AGAP (test code = AGAP) 10.9 10.0-20.0 [facility] PasoKqfhoeoWDNWHMYIMS7358-57-73 09:17:00 Test Item Value Reference Range Interpretation Comments Basophils (test code = 0.3 See_Comment [Aut omated message] The Basophils) system which ge nerated this result tra nsmitted reference range : <=1.0. The reference r lily was not used to int erpret this result as normal/abnormal . [facility] PasoHigxmnbLPDJPZCGDM1806-59-71 09:17:00 Test Item Value Reference Range Interpretation Comments Eosinophils (test code = 1.3 See_Comment [A utomated message] The Eosinophils) system which ge nerated this result tra nsmitted reference range : <=4.0. The reference r lily was not used to int erpret this result as normal/abnormal . [facility] PasoEodtjsaNVOSZUPJWE0849-95-33 09:17:00 Test Item Value Reference Range Interpretation Comments Monocytes # (test code 0.7 See_Comment [Aut omated message] The = Monocytes #) system which generated this result tra nsmitted reference range : <=0.8. The reference r lily was not used to int erpret this result as normal/abnormal . [facility] PasoUofzfwvNQSBTBGXTM7575-93-90 09:17:00 Test Item Value Reference Range Interpretation Comments Lymphocytes # (test code = Lymphocytes 1.7 1.0-5.5 #) [facility] PasoBxsikwjNKSLIGSCEM3145-15-32 09:17:00 Test Item Value Reference Range Interpretation Comments Segs-Bands # (test code = Segs-Bands #) 5.8 1.5-8.1 [facility] PasoWbwrzsvZZXITKOHKW5989-79-32 09:17:00 Test Item Value Reference Range Interpretation Comments Lymphocytes (test code = Lymphocytes) 20.7 20.0-40.0 [facility] PasoDklatvxGAMWSAKQVZ6776-74-36 09:17:00 Test Item Value Reference Range Interpretation Comments Monocytes (test code = Monocytes) 8.4 2.0-12.0 [facility] PasoUyruubdWVEBDLCRYY0243-15-48 09:17:00 Test Item Value Reference Range Interpretation Comments Eosinophils # (test code 0.1 See_Comment [A utomated message] The = Eosinophils #) system ic h generated this result tra nsmitted reference range : <=0.5. The reference r lily was not used to int erpret this result as normal/abnormal . [facility] PasoRwjkrqeIPKIPJVYJL9743-17-35 09:17:00 Test Item Value Reference Range Interpretation Comments Segs (test code = Segs) 69.3 45.0-75.0 [facility] PasoEyukljnFJWTEINAQG9981-78-25 09:17:00 Test Item Value Reference Range Interpretation Comments Hgb (test code = Hgb) 11.7 12.0-16.0 [facility] PasoUfovhxkCTJVGUDMCS4740-18-78 09:17:00 Test Item Value Reference Range Interpretation Comments RBC (test code = RBC) 3.81 4.20-5.40 [facility] PasoCtzszgcKOVWWXOYDV0658-57-89 09:17:00 Test Item Value Reference Range Interpretation Comments WBC (test code = WBC) 8.4 3.7-10.4 [facility] PasoUnywndxWTGTDFVROO2548-29-33 09:17:00 Test Item Value Reference Range Interpretation Comments MCH (test code = MCH) 30.7 pg 27.0-31.0 [facility] PasoUohdfpqTGBUCWOLLG9440-05-46 09:17:00 Test Item Value Reference Range Interpretation Comments MCV (test code = MCV) 89.3 80.0-98.0 [facility] PasoBvkgkhsJUBBGIETUM7186-62-75 09:17:00 Test Item Value Reference Range Interpretation Comments Hct (test code = Hct) 34.0 36.0-48.0 [facility] PasoIrrcbaaDNVANURSLA1096-72-71 09:17:00 Test Item Value Reference Range Interpretation Comments Platelet (test code = Platelet) 143 133-450 [facility] PasoYmitdlfSQQRBLMVJX7639-38-12 09:17:00 Test Item Value Reference Range Interpretation Comments RDW (test code = RDW) 13.2 11.5-14.5 [facility] PasoNdmohuzKZDKLAWCWG3583-26-71 09:17:00 Test Item Value Reference Range Interpretation Comments MCHC (test code = MCHC) 34.4 32.0-36.0 [facility] PasoAtyrxttOXVOBYOSQZ3823-33-37 09:17:00 Test Item Value Reference Range Interpretation Comments MPV (test code = MPV) 10.3 7.4-10.4 [facility]CHE[facility] OPUBR5353-74-09 09:17:00 Test Item Value Reference Range Interpretation Comments eGFR (test code = eGFR) 94 [facility] CampusCHEM JYAIB0065-40-84 09:17:00 Test Item Value Reference Range Interpretation Comments Globulin (test code = Globulin) 3.7 2.0-4.0 [facility]2016-07-18 09:17:00 Test Item Value Reference Range Interpretation Comments ALT (test code = ALT) 24 See_Comment [Auto mated message] The system which ge nerated this result transmit shaun reference range : <=65. The reference range was not used to interpr et this result as jackeline l/abnormal. [facility]2016-07-18 09:17:00 Test Item Value Reference Range Interpretation Comments A/G Ratio (test code = A/G Ratio) 0.8 0.7-1.6 [place] 523386-07-18 09:17:00 Test Item Value Reference Range Interpretation Comments Alk Phos (test code = Alk Phos) 69 39-136 [facility]2016-07-18 09:17:00 Test Item Value Reference Range Interpretation Comments AST (test code = AST) 17 See_Comment [Auto mated message] The system which ge nerated this result transmit shaun reference range : <=37. The reference range was not used to interpr et this result as jackeline l/abnormal. [facility]2016-07-18 09:17:00 Test Item Value Reference Range Interpretation Comments Bili Total (test code = Bili Total) 0.6 0.2-1.3 [place] 523386-07-18 09:17:00 Test Item Value Reference Range Interpretation Comments Glucose Lvl (test code = Glucose Lvl) 102 70-99 [facility]2016-07-18 09:17:00 Test Item Value Reference Range Interpretation Comments BUN (test code = BUN) 10 7-22 [place] 523386-07-18 09:17:00 Test Item Value Reference Range Interpretation Comments Creatinine Lvl (test code = Creatinine 0.68 0.50-1.40 Lvl) [place] 523386-07-18 09:17:00 Test Item Value Reference Range Interpretation Comments Chloride Lvl (test code = Chloride Lvl) 107 95-109 [facility]2016-07-18 09:17:00 Test Item Value Reference Range Interpretation Comments Potassium Lvl (test code = Potassium 3.9 3.5-5.1 Lvl) [place] 523386-07-18 09:17:00 Test Item Value Reference Range Interpretation Comments CO2 (test code = CO2) 29 24-32 [place] 523386-07-18 09:17:00 Test Item Value Reference Range Interpretation Comments Sodium Lvl (test code = Sodium Lvl) 143 135-145 [place] 523386-07-18 09:17:00 Test Item Value Reference Range Interpretation Comments Total Protein (test code = Total 6.5 6.4-8.4 Protein) [place] 523386-07-18 09:17:00 Test Item Value Reference Range Interpretation Comments B/C Ratio (test code = B/C Ratio) 15 6-25 [place] 523386-07-18 09:17:00 Test Item Value Reference Range Interpretation Comments Albumin Lvl (test code = Albumin Lvl) 2.8 3.5-5.0 [place] 523386-07-18 09:17:00 Test Item Value Reference Range Interpretation Comments Calcium Lvl (test code = Calcium Lvl) 8.6 8.5-10.5 [place] 523386-07-18 09:17:00 Test Item Value Reference Range Interpretation Comments AGAP (test code = AGAP) 10.9 10.0-20.0 [facility] PasoPsvnngfKTHJYAFSJT7759-15-92 09:17:00 Test Item Value Reference Range Interpretation Comments Basophils (test code = 0.3 See_Comment [Aut omated message] The Basophils) system which ge nerated this result tra nsmitted reference range : <=1.0. The reference r lily was not used to int erpret this result as normal/abnormal . [facility] PasoNwqegbfJVUBIPSRVH0835-14-29 09:17:00 Test Item Value Reference Range Interpretation Comments Eosinophils (test code = 1.3 See_Comment [A utomated message] The Eosinophils) system which ge nerated this result tra nsmitted reference range : <=4.0. The reference r lily was not used to int erpret this result as normal/abnormal . [place] 101186-07-18 09:17:00 Test Item Value Reference Range Interpretation Comments Monocytes # (test code 0.7 See_Comment [Aut omated message] The = Monocytes #) system which generated this result tra nsmitted reference range : <=0.8. The reference r lily was not used to int erpret this result as normal/abnormal . [facility] PasoAgehiefXMSJBDZKFB1252-32-39 09:17:00 Test Item Value Reference Range Interpretation Comments Lymphocytes # (test code = Lymphocytes 1.7 1.0-5.5 #) [facility] PasoCynikmgPVUFLXXDLW4151-96-22 09:17:00 Test Item Value Reference Range Interpretation Comments Segs-Bands # (test code = Segs-Bands #) 5.8 1.5-8.1 [facility] PasoFhzzdmkARNBBRYIWH1198-03-45 09:17:00 Test Item Value Reference Range Interpretation Comments Lymphocytes (test code = Lymphocytes) 20.7 20.0-40.0 [facility] PasoVntrkbhJQBBTCAAUR6812-44-37 09:17:00 Test Item Value Reference Range Interpretation Comments Monocytes (test code = Monocytes) 8.4 2.0-12.0 [facility] PasoAkwkjrbAAYILTHOTS8857-15-12 09:17:00 Test Item Value Reference Range Interpretation Comments Eosinophils # (test code 0.1 See_Comment [A utomated message] The = Eosinophils #) system whic h generated this result tra nsmitted reference range : <=0.5. The reference r lily was not used to int erpret this result as normal/abnormal . [facility] PasoRfdoouuXQIDLZXJEY2965-98-94 09:17:00 Test Item Value Reference Range Interpretation Comments Segs (test code = Segs) 69.3 45.0-75.0 [facility] PasoErjdsjmKVROVUNCPT2319-60-04 09:17:00 Test Item Value Reference Range Interpretation Comments Hgb (test code = Hgb) 11.7 12.0-16.0 [facility] PasoOszfyemRWPFCMUQUR8634-86-41 09:17:00 Test Item Value Reference Range Interpretation Comments RBC (test code = RBC) 3.81 4.20-5.40 [facility] PasoMkqjxrwXXPFMCGVHJ1508-19-79 09:17:00 Test Item Value Reference Range Interpretation Comments WBC (test code = WBC) 8.4 3.7-10.4 [facility] PasoErkznkpSLCRPPLWMI3442-13-56 09:17:00 Test Item Value Reference Range Interpretation Comments MCH (test code = MCH) 30.7 pg 27.0-31.0 [facility] PasoHjoptqpKFEBNMVXFM5899-71-70 09:17:00 Test Item Value Reference Range Interpretation Comments MCV (test code = MCV) 89.3 80.0-98.0 [facility] PasoCbuskjtDQJZLVHEKU5107-49-35 09:17:00 Test Item Value Reference Range Interpretation Comments Hct (test code = Hct) 34.0 36.0-48.0 [place] 101186-07-18 09:17:00 Test Item Value Reference Range Interpretation Comments Platelet (test code = Platelet) 143 133-450 [facility] PasoHurwxhaIZMOANMYOU4913-46-39 09:17:00 Test Item Value Reference Range Interpretation Comments RDW (test code = RDW) 13.2 11.5-14.5 [facility] PasoJpdjhbcXIGLDWNVIK4152-32-62 09:17:00 Test Item Value Reference Range Interpretation Comments MCHC (test code = MCHC) 34.4 32.0-36.0 [place] 101186-07-18 09:17:00 Test Item Value Reference Range Interpretation Comments MPV (test code = MPV) 10.3 7.4-10.4 [facility]2016-07-18 09:17:00 Test Item Value Reference Range Interpretation Comments eGFR (test code = eGFR) 94 [facility]2016-07-18 09:17:00 Test Item Value Reference Range Interpretation Comments Globulin (test code = Globulin) 3.7 2.0-4.0 [facility]2016-07-18 09:17:00 Test Item Value Reference Range Interpretation Comments ALT (test code = ALT) 24 See_Comment [Auto mated message] The system which ge nerated this result transmit shaun reference range : <=65. The reference range was not used to interpr et this result as jackeline l/abnormal. [place] 523386-07-18 09:17:00 Test Item Value Reference Range Interpretation Comments A/G Ratio (test code = A/G Ratio) 0.8 0.7-1.6 [place] 523386-07-18 09:17:00 Test Item Value Reference Range Interpretation Comments Alk Phos (test code = Alk Phos) 69 39-136 [place] 523386-07-18 09:17:00 Test Item Value Reference Range Interpretation Comments AST (test code = AST) 17 See_Comment [Auto mated message] The system which ge nerated this result transmit shaun reference range : <=37. The reference range was not used to interpr et this result as jackeline l/abnormal. [facility]2016-07-18 09:17:00 Test Item Value Reference Range Interpretation Comments Bili Total (test code = Bili Total) 0.6 0.2-1.3 [facility]2016-07-18 09:17:00 Test Item Value Reference Range Interpretation Comments Glucose Lvl (test code = Glucose Lvl) 102 70-99 [facility]2016-07-18 09:17:00 Test Item Value Reference Range Interpretation Comments BUN (test code = BUN) 10 7-22 [facility]2016-07-18 09:17:00 Test Item Value Reference Range Interpretation Comments Creatinine Lvl (test code = Creatinine 0.68 0.50-1.40 Lvl) [facility]2016-07-18 09:17:00 Test Item Value Reference Range Interpretation Comments Chloride Lvl (test code = Chloride Lvl) 107 95-109 [facility]2016-07-18 09:17:00 Test Item Value Reference Range Interpretation Comments Potassium Lvl (test code = Potassium 3.9 3.5-5.1 Lvl) [facility]2016-07-18 09:17:00 Test Item Value Reference Range Interpretation Comments CO2 (test code = CO2) 29 24-32 [facility]2016-07-18 09:17:00 Test Item Value Reference Range Interpretation Comments Sodium Lvl (test code = Sodium Lvl) 143 135-145 [facility]2016-07-18 09:17:00 Test Item Value Reference Range Interpretation Comments Total Protein (test code = Total 6.5 6.4-8.4 Protein) [facility]2016-07-18 09:17:00 Test Item Value Reference Range Interpretation Comments B/C Ratio (test code = B/C Ratio) 15 6-25 [place] 523386-07-18 09:17:00 Test Item Value Reference Range Interpretation Comments Albumin Lvl (test code = Albumin Lvl) 2.8 3.5-5.0 [facility]2016-07-18 09:17:00 Test Item Value Reference Range Interpretation Comments Calcium Lvl (test code = Calcium Lvl) 8.6 8.5-10.5 [facility]2016-07-18 09:17:00 Test Item Value Reference Range Interpretation Comments AGAP (test code = AGAP) 10.9 10.0-20.0 [facility]DkkzeatMYTONTQAAQ4246-62-62 09:17:00 Test Item Value Reference Range Interpretation Comments Basophils (test code = 0.3 See_Comment [Aut omated message] The Basophils) system which ge nerated this result tra nsmitted reference range : <=1.0. The reference r lily was not used to int erpret this result as normal/abnormal . [facility] PasoJykihbzTKOJZVQZVH0528-77-52 09:17:00 Test Item Value Reference Range Interpretation Comments Eosinophils (test code = 1.3 See_Comment [A utomated message] The Eosinophils) system which ge nerated this result tra nsmitted reference range : <=4.0. The reference r lily was not used to int erpret this result as normal/abnormal . [facility] PasoPgsnnvyEBFHJNJZDM5498-12-87 09:17:00 Test Item Value Reference Range Interpretation Comments Monocytes # (test code 0.7 See_Comment [Aut omated message] The = Monocytes #) system which generated this result tra nsmitted reference range : <=0.8. The reference r lily was not used to int erpret this result as normal/abnormal . [facility] PasoGeurbzjZDEYLKPWPQ8587-31-55 09:17:00 Test Item Value Reference Range Interpretation Comments Lymphocytes # (test code = Lymphocytes 1.7 1.0-5.5 #) [facility] PasoMfcekuwLESKXYVZWQ4199-70-11 09:17:00 Test Item Value Reference Range Interpretation Comments Segs-Bands # (test code = Segs-Bands #) 5.8 1.5-8.1 [facility] PasoDkedmxrYNZHABQOBW1351-98-22 09:17:00 Test Item Value Reference Range Interpretation Comments Lymphocytes (test code = Lymphocytes) 20.7 20.0-40.0 [facility] PasoUjeeswhWLBOSFEKMM4356-20-07 09:17:00 Test Item Value Reference Range Interpretation Comments Monocytes (test code = Monocytes) 8.4 2.0-12.0 [facility] PasoFslcftcQRFSOEWQWN7627-98-33 09:17:00 Test Item Value Reference Range Interpretation Comments Eosinophils # (test code 0.1 See_Comment [A utomated message] The = Eosinophils #) system v2tel h generated this result tra nsmitted reference range : <=0.5. The reference r lily was not used to int erpret this result as normal/abnormal . [facility] PasoGkohwymXTBMEJVIAW2034-30-76 09:17:00 Test Item Value Reference Range Interpretation Comments Segs (test code = Segs) 69.3 45.0-75.0 [facility] PasoJpmyvmrMXZLGDKCXB8673-20-81 09:17:00 Test Item Value Reference Range Interpretation Comments Hgb (test code = Hgb) 11.7 12.0-16.0 [facility] PasoDgqalswMYQGIAHLHY8643-04-57 09:17:00 Test Item Value Reference Range Interpretation Comments RBC (test code = RBC) 3.81 4.20-5.40 [facility] PasoXmpdnhcWVYHKNITMM3184-20-49 09:17:00 Test Item Value Reference Range Interpretation Comments WBC (test code = WBC) 8.4 3.7-10.4 [facility] PasoCjevdmiHNZIYAALBL2659-94-47 09:17:00 Test Item Value Reference Range Interpretation Comments MCH (test code = MCH) 30.7 pg 27.0-31.0 [facility] PasoXojygtsKZJRIHEXXG1110-93-13 09:17:00 Test Item Value Reference Range Interpretation Comments MCV (test code = MCV) 89.3 80.0-98.0 [facility] PasoAtffaccVHXGASNYHX7856-35-45 09:17:00 Test Item Value Reference Range Interpretation Comments Hct (test code = Hct) 34.0 36.0-48.0 [facility] PasoRhnoqkwVREAWIGNJX9102-24-72 09:17:00 Test Item Value Reference Range Interpretation Comments Platelet (test code = Platelet) 143 133-450 [facility] PasoEtsmfrhMHVUEJCKQD4692-98-10 09:17:00 Test Item Value Reference Range Interpretation Comments RDW (test code = RDW) 13.2 11.5-14.5 [facility] PasoWzpindpXAGSPSMYTF6274-90-89 09:17:00 Test Item Value Reference Range Interpretation Comments MCHC (test code = MCHC) 34.4 32.0-36.0 [facility] PasoGgxnqtoTIXJSGBYFL3900-73-11 09:17:00 Test Item Value Reference Range Interpretation Comments MPV (test code = MPV) 10.3 7.4-10.4 [place] 523386-07-18 09:17:00 Test Item Value Reference Range Interpretation Comments eGFR (test code = eGFR) 94 [facility]2016-07-18 09:17:00 Test Item Value Reference Range Interpretation Comments Globulin (test code = Globulin) 3.7 2.0-4.0 [place] 523386-07-18 09:17:00 Test Item Value Reference Range Interpretation Comments ALT (test code = ALT) 24 See_Comment [Auto mated message] The system which ge nerated this result transmit shaun reference range : <=65. The reference range was not used to interpr et this result as jackeline l/abnormal. [place] 523386-07-18 09:17:00 Test Item Value Reference Range Interpretation Comments A/G Ratio (test code = A/G Ratio) 0.8 0.7-1.6 [place] 523386-07-18 09:17:00 Test Item Value Reference Range Interpretation Comments Alk Phos (test code = Alk Phos) 69 39-136 [facility]2016-07-18 09:17:00 Test Item Value Reference Range Interpretation Comments AST (test code = AST) 17 See_Comment [Auto mated message] The system which ge nerated this result transmit shaun reference range : <=37. The reference range was not used to interpr et this result as jackeline l/abnormal. [place] 523386-07-18 09:17:00 Test Item Value Reference Range Interpretation Comments Bili Total (test code = Bili Total) 0.6 0.2-1.3 [place] 523386-07-18 09:17:00 Test Item Value Reference Range Interpretation Comments Glucose Lvl (test code = Glucose Lvl) 102 70-99 [place] 523386-07-18 09:17:00 Test Item Value Reference Range Interpretation Comments BUN (test code = BUN) 10 7-22 [place] 523386-07-18 09:17:00 Test Item Value Reference Range Interpretation Comments Creatinine Lvl (test code = Creatinine 0.68 0.50-1.40 Lvl) [place] 523386-07-18 09:17:00 Test Item Value Reference Range Interpretation Comments Chloride Lvl (test code = Chloride Lvl) 107 95-109 [place] 523386-07-18 09:17:00 Test Item Value Reference Range Interpretation Comments Potassium Lvl (test code = Potassium 3.9 3.5-5.1 Lvl) [facility]2016-07-18 09:17:00 Test Item Value Reference Range Interpretation Comments CO2 (test code = CO2) 29 24-32 [place] 523386-07-18 09:17:00 Test Item Value Reference Range Interpretation Comments Sodium Lvl (test code = Sodium Lvl) 143 135-145 [place] 523386-07-18 09:17:00 Test Item Value Reference Range Interpretation Comments Total Protein (test code = Total 6.5 6.4-8.4 Protein) [place] 523386-07-18 09:17:00 Test Item Value Reference Range Interpretation Comments B/C Ratio (test code = B/C Ratio) 15 6-25 [place] 523386-07-18 09:17:00 Test Item Value Reference Range Interpretation Comments Albumin Lvl (test code = Albumin Lvl) 2.8 3.5-5.0 [place] 523386-07-18 09:17:00 Test Item Value Reference Range Interpretation Comments Calcium Lvl (test code = Calcium Lvl) 8.6 8.5-10.5 [place] 523386-07-18 09:17:00 Test Item Value Reference Range Interpretation Comments AGAP (test code = AGAP) 10.9 10.0-20.0 [facility] PasoFypbcfdVHKJMJBXKG6152-69-91 09:17:00 Test Item Value Reference Range Interpretation Comments Basophils (test code = 0.3 See_Comment [Aut omated message] The Basophils) system which nerated this result tra nsmitted reference range : <=1.0. The reference r lily was not used to int erpret this result as normal/abnormal . [facility] PasoOqishrdASAXZDSNXW1695-22-82 09:17:00 Test Item Value Reference Range Interpretation Comments Eosinophils (test code = 1.3 See_Comment [A utomated message] The Eosinophils) system which ge nerated this result tra nsmitted reference range : <=4.0. The reference r lily was not used to int erpret this result as normal/abnormal . [place] [address]-07-18 09:17:00 Test Item Value Reference Range Interpretation Comments Monocytes # (test code 0.7 See_Comment [Aut omated message] The = Monocytes #) system which generated this result tra nsmitted reference range : <=0.8. The reference r lily was not used to int erpret this result as normal/abnormal . [facility] PasoXvxbhlgYPXWJLRKQU3537-01-62 09:17:00 Test Item Value Reference Range Interpretation Comments Lymphocytes # (test code = Lymphocytes 1.7 1.0-5.5 #) [facility] PasoYcdxlbmXRMXOYSCIU9602-75-03 09:17:00 Test Item Value Reference Range Interpretation Comments Segs-Bands # (test code = Segs-Bands #) 5.8 1.5-8.1 [facility] PasoDhhgmfjOIBBZTIDDO9220-04-81 09:17:00 Test Item Value Reference Range Interpretation Comments Lymphocytes (test code = Lymphocytes) 20.7 20.0-40.0 [facility] PasoKkxmrusZIHXTISBCK6412-69-32 09:17:00 Test Item Value Reference Range Interpretation Comments Monocytes (test code = Monocytes) 8.4 2.0-12.0 [facility] PasoFaxonxyDBDALUICTP9091-97-31 09:17:00 Test Item Value Reference Range Interpretation Comments Eosinophils # (test code 0.1 See_Comment [A utomated message] The = Eosinophils #) system whic h generated this result tra nsmitted reference range : <=0.5. The reference r lily was not used to int erpret this result as normal/abnormal . [facility] PasoLvuszdmAGJFJIUZKB6888-85-99 09:17:00 Test Item Value Reference Range Interpretation Comments Segs (test code = Segs) 69.3 45.0-75.0 [facility] PasoYmcfbkpTXONKWQBII0859-53-78 09:17:00 Test Item Value Reference Range Interpretation Comments Hgb (test code = Hgb) 11.7 12.0-16.0 [facility] PasoVihjemxVLQYLUQFRU9556-34-91 09:17:00 Test Item Value Reference Range Interpretation Comments RBC (test code = RBC) 3.81 4.20-5.40 [facility] PasoWzdqivyPEMHEOHWPE2853-04-47 09:17:00 Test Item Value Reference Range Interpretation Comments WBC (test code = WBC) 8.4 3.7-10.4 [facility] PasoJpqkfwiVJLCABAAJV7542-86-41 09:17:00 Test Item Value Reference Range Interpretation Comments MCH (test code = MCH) 30.7 pg 27.0-31.0 [facility] PasoLinznovDSUIYTVTLU6777-11-34 09:17:00 Test Item Value Reference Range Interpretation Comments MCV (test code = MCV) 89.3 80.0-98.0 [facility] PasoPixfausYEXTQXXROM2041-90-70 09:17:00 Test Item Value Reference Range Interpretation Comments Hct (test code = Hct) 34.0 36.0-48.0 [facility] PasoLvzkwhkGFNPOFTQWZ0546-85-56 09:17:00 Test Item Value Reference Range Interpretation Comments Platelet (test code = Platelet) 143 133-450 [facility] PasoIkivrkdSVSVGSACEZ6783-78-48 09:17:00 Test Item Value Reference Range Interpretation Comments RDW (test code = RDW) 13.2 11.5-14.5 [facility] PasoZowcjxwPPRSORYIJW9971-94-14 09:17:00 Test Item Value Reference Range Interpretation Comments MCHC (test code = MCHC) 34.4 32.0-36.0 [facility] PasoThrymvlYHXGUTSJKU9422-73-28 09:17:00 Test Item Value Reference Range Interpretation Comments MPV (test code = MPV) 10.3 7.4-10.4 [facility]2016-07-18 09:17:00 Test Item Value Reference Range Interpretation Comments eGFR (test code = eGFR) 94 [place] 523386-07-18 09:17:00 Test Item Value Reference Range Interpretation Comments Globulin (test code = Globulin) 3.7 2.0-4.0 [facility]2016-07-18 09:17:00 Test Item Value Reference Range Interpretation Comments ALT (test code = ALT) 24 See_Comment [Auto mated message] The system which ge nerated this result transmit shaun reference range : <=65. The reference range was not used to interpr et this result as jackeline l/abnormal. [facility]2016-07-18 09:17:00 Test Item Value Reference Range Interpretation Comments A/G Ratio (test code = A/G Ratio) 0.8 0.7-1.6 [place] [address]386-07-18 09:17:00 Test Item Value Reference Range Interpretation Comments Alk Phos (test code = Alk Phos) 69 39-136 [facility]2016-07-18 09:17:00 Test Item Value Reference Range Interpretation Comments AST (test code = AST) 17 See_Comment [Auto mated message] The system which ge nerated this result transmit shaun reference range : <=37. The reference range was not used to interpr et this result as jackeline l/abnormal. [facility]2016-07-18 09:17:00 Test Item Value Reference Range Interpretation Comments Bili Total (test code = Bili Total) 0.6 0.2-1.3 [place] [address]386-07-18 09:17:00 Test Item Value Reference Range Interpretation Comments Glucose Lvl (test code = Glucose Lvl) 102 70-99 [facility]2016-07-18 09:17:00 Test Item Value Reference Range Interpretation Comments BUN (test code = BUN) 10 7-22 [facility]2016-07-18 09:17:00 Test Item Value Reference Range Interpretation Comments Creatinine Lvl (test code = Creatinine 0.68 0.50-1.40 Lvl) [facility]2016-07-18 09:17:00 Test Item Value Reference Range Interpretation Comments Chloride Lvl (test code = Chloride Lvl) 107 95-109 [facility]2016-07-18 09:17:00 Test Item Value Reference Range Interpretation Comments Potassium Lvl (test code = Potassium 3.9 3.5-5.1 Lvl) [facility]2016-07-18 09:17:00 Test Item Value Reference Range Interpretation Comments CO2 (test code = CO2) 29 24-32 [facility]2016-07-18 09:17:00 Test Item Value Reference Range Interpretation Comments Sodium Lvl (test code = Sodium Lvl) 143 135-145 [facility]2016-07-18 09:17:00 Test Item Value Reference Range Interpretation Comments Total Protein (test code = Total 6.5 6.4-8.4 Protein) [facility]2016-07-18 09:17:00 Test Item Value Reference Range Interpretation Comments B/C Ratio (test code = B/C Ratio) 15 6-25 [place] [address]386-07-18 09:17:00 Test Item Value Reference Range Interpretation Comments Albumin Lvl (test code = Albumin Lvl) 2.8 3.5-5.0 [facility]2016-07-18 09:17:00 Test Item Value Reference Range Interpretation Comments Calcium Lvl (test code = Calcium Lvl) 8.6 8.5-10.5 [facility]2016-07-18 09:17:00 Test Item Value Reference Range Interpretation Comments AGAP (test code = AGAP) 10.9 10.0-20.0 [facility] PasoZdyaveaSHPDJAGATV4646-40-18 09:17:00 Test Item Value Reference Range Interpretation Comments Basophils (test code = 0.3 See_Comment [Aut omated message] The Basophils) system which ge nerated this result tra nsmitted reference range : <=1.0. The reference r lily was not used to int erpret this result as normal/abnormal . [facility] PasoQyzpfleCTIDVIYUDR6496-43-09 09:17:00 Test Item Value Reference Range Interpretation Comments Eosinophils (test code = 1.3 See_Comment [A utomated message] The Eosinophils) system which ge nerated this result tra nsmitted reference range : <=4.0. The reference r lily was not used to int erpret this result as normal/abnormal . [facility] PasoPqadqlsVLSRAUVQCR8770-34-60 09:17:00 Test Item Value Reference Range Interpretation Comments Monocytes # (test code 0.7 See_Comment [Aut omated message] The = Monocytes #) system which generated this result tra nsmitted reference range : <=0.8. The reference r lily was not used to int erpret this result as normal/abnormal . [facility] PasoHjjhepcZIVFJYQSGM4179-87-66 09:17:00 Test Item Value Reference Range Interpretation Comments Lymphocytes # (test code = Lymphocytes 1.7 1.0-5.5 #) [facility] PasoBdqfxhcGNPFEZJCJX5549-73-37 09:17:00 Test Item Value Reference Range Interpretation Comments Segs-Bands # (test code = Segs-Bands #) 5.8 1.5-8.1 [facility] PasoWauxndfWMLBUMQCCZ0938-37-23 09:17:00 Test Item Value Reference Range Interpretation Comments Lymphocytes (test code = Lymphocytes) 20.7 20.0-40.0 [facility] PasoKemslkgKMOWRVQYRC9054-66-50 09:17:00 Test Item Value Reference Range Interpretation Comments Monocytes (test code = Monocytes) 8.4 2.0-12.0 [facility] PasoCohspunWKSYWXBYFG9171-68-35 09:17:00 Test Item Value Reference Range Interpretation Comments Eosinophils # (test code 0.1 See_Comment [A utomated message] The = Eosinophils #) system whic h generated this result tra nsmitted reference range : <=0.5. The reference r lily was not used to int erpret this result as normal/abnormal . [facility] PasoInqfyolUYFMNANMJN0502-98-01 09:17:00 Test Item Value Reference Range Interpretation Comments Segs (test code = Segs) 69.3 45.0-75.0 [facility] PasoGpvmarxMJKEBFPYPL2231-72-75 09:17:00 Test Item Value Reference Range Interpretation Comments Hgb (test code = Hgb) 11.7 12.0-16.0 [facility] PasoZujuktgULEFNQBEFW8125-35-46 09:17:00 Test Item Value Reference Range Interpretation Comments RBC (test code = RBC) 3.81 4.20-5.40 [facility] PasoHqbpwvtYVKANZDXFI4581-53-55 09:17:00 Test Item Value Reference Range Interpretation Comments WBC (test code = WBC) 8.4 3.7-10.4 [facility] PasoYeyyfpbXKFQBQZTTC3827-60-91 09:17:00 Test Item Value Reference Range Interpretation Comments MCH (test code = MCH) 30.7 pg 27.0-31.0 [facility] PasoCjryqcfCEEVFJWCQC9875-13-15 09:17:00 Test Item Value Reference Range Interpretation Comments MCV (test code = MCV) 89.3 80.0-98.0 [facility] PasoNmyvnokVFIMVCUJPQ9375-75-69 09:17:00 Test Item Value Reference Range Interpretation Comments Hct (test code = Hct) 34.0 36.0-48.0 [facility] PasoIwzhobtLCVGJDCMXL4359-43-34 09:17:00 Test Item Value Reference Range Interpretation Comments Platelet (test code = Platelet) 143 133-450 [facility] PasoSznfcjaMZOMIWRBHP0260-07-16 09:17:00 Test Item Value Reference Range Interpretation Comments RDW (test code = RDW) 13.2 11.5-14.5 [facility] PasoEavsgkzJIQFADAMXJ1979-89-54 09:17:00 Test Item Value Reference Range Interpretation Comments MCHC (test code = MCHC) 34.4 32.0-36.0 [facility] PasoNkctkmsXZHNHSTRZS2875-66-60 09:17:00 Test Item Value Reference Range Interpretation Comments MPV (test code = MPV) 10.3 7.4-10.4 [facility]2016-07-18 09:17:00 Test Item Value Reference Range Interpretation Comments eGFR (test code = eGFR) 94 [facility]2016-07-18 09:17:00 Test Item Value Reference Range Interpretation Comments Globulin (test code = Globulin) 3.7 2.0-4.0 [place] [address]386-07-18 09:17:00 Test Item Value Reference Range Interpretation Comments ALT (test code = ALT) 24 See_Comment [Auto mated message] The system which ge nerated this result transmit shaun reference range : <=65. The reference range was not used to interpr et this result as jackeline l/abnormal. [facility]2016-07-18 09:17:00 Test Item Value Reference Range Interpretation Comments A/G Ratio (test code = A/G Ratio) 0.8 0.7-1.6 [place] [address]386-07-18 09:17:00 Test Item Value Reference Range Interpretation Comments Alk Phos (test code = Alk Phos) 69 39-136 [facility]2016-07-18 09:17:00 Test Item Value Reference Range Interpretation Comments AST (test code = AST) 17 See_Comment [Auto mated message] The system which ge nerated this result transmit shaun reference range : <=37. The reference range was not used to interpr et this result as jackeline l/abnormal. [facility]2016-07-18 09:17:00 Test Item Value Reference Range Interpretation Comments Bili Total (test code = Bili Total) 0.6 0.2-1.3 [place] [address]386-07-18 09:17:00 Test Item Value Reference Range Interpretation Comments Glucose Lvl (test code = Glucose Lvl) 102 70-99 [place] [address]386-07-18 09:17:00 Test Item Value Reference Range Interpretation Comments BUN (test code = BUN) 10 7-22 [facility]2016-07-18 09:17:00 Test Item Value Reference Range Interpretation Comments Creatinine Lvl (test code = Creatinine 0.68 0.50-1.40 Lvl) [facility]2016-07-18 09:17:00 Test Item Value Reference Range Interpretation Comments Chloride Lvl (test code = Chloride Lvl) 107 95-109 [facility]2016-07-18 09:17:00 Test Item Value Reference Range Interpretation Comments Potassium Lvl (test code = Potassium 3.9 3.5-5.1 Lvl) [facility]2016-07-18 09:17:00 Test Item Value Reference Range Interpretation Comments CO2 (test code = CO2) 29 24-32 [place] [address]386-07-18 09:17:00 Test Item Value Reference Range Interpretation Comments Sodium Lvl (test code = Sodium Lvl) 143 135-145 [place] 523386-07-18 09:17:00 Test Item Value Reference Range Interpretation Comments Total Protein (test code = Total 6.5 6.4-8.4 Protein) [facility]2016-07-18 09:17:00 Test Item Value Reference Range Interpretation Comments B/C Ratio (test code = B/C Ratio) 15 6-25 [place] [address]386-07-18 09:17:00 Test Item Value Reference Range Interpretation Comments Albumin Lvl (test code = Albumin Lvl) 2.8 3.5-5.0 [facility] [facility]2016-07-18 09:17:00 Test Item Value Reference Range Interpretation Comments Calcium Lvl (test code = Calcium Lvl) 8.6 8.5-10.5 [facility]2016-07-18 09:17:00 Test Item Value Reference Range Interpretation Comments AGAP (test code = AGAP) 10.9 10.0-20.0 [facility]ZhveqdeJGWPPEJJYS1373-15-64 09:17:00 Test Item Value Reference Range Interpretation Comments Basophils (test code = 0.3 See_Comment [Aut omated message] The Basophils) system which ge nerated this result tra nsmitted reference range : <=1.0. The reference r lily was not used to int erpret this result as normal/abnormal . [facility] PasoQzvdgaiVIHIGOUDZY1906-94-50 09:17:00 Test Item Value Reference Range Interpretation Comments Eosinophils (test code = 1.3 See_Comment [A utomated message] The Eosinophils) system which ge nerated this result tra nsmitted reference range : <=4.0. The reference r lily was not used to int erpret this result as normal/abnormal . [facility] PasoXurkrfsBIZEVPMBJQ7918-71-03 09:17:00 Test Item Value Reference Range Interpretation Comments Monocytes # (test code 0.7 See_Comment [Aut omated message] The = Monocytes #) system which generated this result tra nsmitted reference range : <=0.8. The reference r lily was not used to int erpret this result as normal/abnormal . [facility] PasoCgmlhnsJBZCDWTXHV2571-27-54 09:17:00 Test Item Value Reference Range Interpretation Comments Lymphocytes # (test code = Lymphocytes 1.7 1.0-5.5 #) [facility] PasoGmlsjutHOGBWTQCZW7568-46-43 09:17:00 Test Item Value Reference Range Interpretation Comments Segs-Bands # (test code = Segs-Bands #) 5.8 1.5-8.1 [facility] PasoPrzesrqRXJZWFPWOH4302-99-17 09:17:00 Test Item Value Reference Range Interpretation Comments Lymphocytes (test code = Lymphocytes) 20.7 20.0-40.0 [facility] PasoClsotfiWTPJKIXAQT6640-74-03 09:17:00 Test Item Value Reference Range Interpretation Comments Monocytes (test code = Monocytes) 8.4 2.0-12.0 [facility] PasoTvwictbKJDBGVWRWU2467-02-48 09:17:00 Test Item Value Reference Range Interpretation Comments Eosinophils # (test code 0.1 See_Comment [A utomated message] The = Eosinophils #) system ic h generated this result tra nsmitted reference range : <=0.5. The reference r lily was not used to int erpret this result as normal/abnormal . [facility] PasoOiigbxyPCJJRRVBLX3654-41-24 09:17:00 Test Item Value Reference Range Interpretation Comments Segs (test code = Segs) 69.3 45.0-75.0 [facility] PasoCgljilkVOBBIWJHXT3690-46-45 09:17:00 Test Item Value Reference Range Interpretation Comments Hgb (test code = Hgb) 11.7 12.0-16.0 [facility] PasoBdhnmpzEYTHNWSUNS8044-62-62 09:17:00 Test Item Value Reference Range Interpretation Comments RBC (test code = RBC) 3.81 4.20-5.40 [facility] PasoGuldzhzBVSRRJKNXH7782-85-46 09:17:00 Test Item Value Reference Range Interpretation Comments WBC (test code = WBC) 8.4 3.7-10.4 [facility] PasoHddfejuDVAARUQYQZ8461-17-26 09:17:00 Test Item Value Reference Range Interpretation Comments MCH (test code = MCH) 30.7 pg 27.0-31.0 [facility] PasoDxlzqduSBMAJPLVWN9250-75-98 09:17:00 Test Item Value Reference Range Interpretation Comments MCV (test code = MCV) 89.3 80.0-98.0 [facility] PasoSwevyerTEYIPZFJWW6947-88-22 09:17:00 Test Item Value Reference Range Interpretation Comments Hct (test code = Hct) 34.0 36.0-48.0 [facility] PasoRyftizfJGLAGTCLGV5140-14-24 09:17:00 Test Item Value Reference Range Interpretation Comments Platelet (test code = Platelet) 143 133-450 [facility] PasoZobbegjVSXHBFLUMR8480-08-43 09:17:00 Test Item Value Reference Range Interpretation Comments RDW (test code = RDW) 13.2 11.5-14.5 [facility] PasoZaubdapQFAEGKDGRH7211-96-24 09:17:00 Test Item Value Reference Range Interpretation Comments MCHC (test code = MCHC) 34.4 32.0-36.0 [facility] PasoUgllpnuXPTHWAIWTM9086-37-82 09:17:00 Test Item Value Reference Range Interpretation Comments MPV (test code = MPV) 10.3 7.4-10.4 [facility]2016-07-18 09:17:00 Test Item Value Reference Range Interpretation Comments eGFR (test code = eGFR) 94 [facility]2016-07-18 09:17:00 Test Item Value Reference Range Interpretation Comments Globulin (test code = Globulin) 3.7 2.0-4.0 [facility]2016-07-18 09:17:00 Test Item Value Reference Range Interpretation Comments ALT (test code = ALT) 24 See_Comment [Auto mated message] The system which ge nerated this result transmit shaun reference range : <=65. The reference range was not used to interpr et this result as jackeline l/abnormal. [facility]2016-07-18 09:17:00 Test Item Value Reference Range Interpretation Comments A/G Ratio (test code = A/G Ratio) 0.8 0.7-1.6 [facility]2016-07-18 09:17:00 Test Item Value Reference Range Interpretation Comments Alk Phos (test code = Alk Phos) 69 39-136 [facility]2016-07-18 09:17:00 Test Item Value Reference Range Interpretation Comments AST (test code = AST) 17 See_Comment [Auto mated message] The system which ge nerated this result transmit shaun reference range : <=37. The reference range was not used to interpr et this result as jackeline l/abnormal. [facility]2016-07-18 09:17:00 Test Item Value Reference Range Interpretation Comments Bili Total (test code = Bili Total) 0.6 0.2-1.3 [facility]2016-07-18 09:17:00 Test Item Value Reference Range Interpretation Comments Glucose Lvl (test code = Glucose Lvl) 102 70-99 [facility]2016-07-18 09:17:00 Test Item Value Reference Range Interpretation Comments BUN (test code = BUN) 10 7-22 [facility]2016-07-18 09:17:00 Test Item Value Reference Range Interpretation Comments Creatinine Lvl (test code = Creatinine 0.68 0.50-1.40 Lvl) [facility]2016-07-18 09:17:00 Test Item Value Reference Range Interpretation Comments Chloride Lvl (test code = Chloride Lvl) 107 95-109 [facility]2016-07-18 09:17:00 Test Item Value Reference Range Interpretation Comments Potassium Lvl (test code = Potassium 3.9 3.5-5.1 Lvl) [facility]2016-07-18 09:17:00 Test Item Value Reference Range Interpretation Comments CO2 (test code = CO2) 29 24-32 [facility]2016-07-18 09:17:00 Test Item Value Reference Range Interpretation Comments Sodium Lvl (test code = Sodium Lvl) 143 135-145 [place] 523386-07-18 09:17:00 Test Item Value Reference Range Interpretation Comments Total Protein (test code = Total 6.5 6.4-8.4 Protein) [facility]2016-07-18 09:17:00 Test Item Value Reference Range Interpretation Comments B/C Ratio (test code = B/C Ratio) 15 6-25 [facility]2016-07-18 09:17:00 Test Item Value Reference Range Interpretation Comments Albumin Lvl (test code = Albumin Lvl) 2.8 3.5-5.0 [facility]2016-07-18 09:17:00 Test Item Value Reference Range Interpretation Comments Calcium Lvl (test code = Calcium Lvl) 8.6 8.5-10.5 [facility]2016-07-18 09:17:00 Test Item Value Reference Range Interpretation Comments AGAP (test code = AGAP) 10.9 10.0-20.0 [facility] PasoWemnrbvIYMQCTJVQN7130-85-50 09:17:00 Test Item Value Reference Range Interpretation Comments Basophils (test code = 0.3 See_Comment [Aut omated message] The Basophils) system which ge nerated this result tra nsmitted reference range : <=1.0. The reference r lily was not used to int erpret this result as normal/abnormal . [facility] PasoUjcisuuPPGFWTBFPB6814-06-90 09:17:00 Test Item Value Reference Range Interpretation Comments Eosinophils (test code = 1.3 See_Comment [A utomated message] The Eosinophils) system which ge nerated this result tra nsmitted reference range : <=4.0. The reference r lily was not used to int erpret this result as normal/abnormal . [facility] PasoLhbtvulJOJHNBBFHK9521-75-86 09:17:00 Test Item Value Reference Range Interpretation Comments Monocytes # (test code 0.7 See_Comment [Aut omated message] The = Monocytes #) system which generated this result tra nsmitted reference range : <=0.8. The reference r lily was not used to int erpret this result as normal/abnormal . [facility] PasoHngkqnnKADAXBLZLP8378-96-80 09:17:00 Test Item Value Reference Range Interpretation Comments Lymphocytes # (test code = Lymphocytes 1.7 1.0-5.5 #) [facility] PasoGmquibdUHKCOJSFLV8386-41-85 09:17:00 Test Item Value Reference Range Interpretation Comments Segs-Bands # (test code = Segs-Bands #) 5.8 1.5-8.1 [place] 101186-07-18 09:17:00 Test Item Value Reference Range Interpretation Comments Lymphocytes (test code = Lymphocytes) 20.7 20.0-40.0 [facility] PasoEkiayavHQABLLUPRB1091-06-85 09:17:00 Test Item Value Reference Range Interpretation Comments Monocytes (test code = Monocytes) 8.4 2.0-12.0 [facility] PasoWyodeneOERYPQUCQI2087-08-89 09:17:00 Test Item Value Reference Range Interpretation Comments Eosinophils # (test code 0.1 See_Comment [A utomated message] The = Eosinophils #) system whic h generated this result tra nsmitted reference range : <=0.5. The reference r lily was not used to int erpret this result as normal/abnormal . [facility] PasoPeofhnzPLZEVCFACS4248-82-51 09:17:00 Test Item Value Reference Range Interpretation Comments Segs (test code = Segs) 69.3 45.0-75.0 [facility] PasoBgjkqldAVBXHHHJDT6063-87-58 09:17:00 Test Item Value Reference Range Interpretation Comments Hgb (test code = Hgb) 11.7 12.0-16.0 [facility] PasoMttyjpbTMFNNGOTGJ8471-65-09 09:17:00 Test Item Value Reference Range Interpretation Comments RBC (test code = RBC) 3.81 4.20-5.40 [facility] PasoZzmontlVDRXZWHLHM9414-68-64 09:17:00 Test Item Value Reference Range Interpretation Comments WBC (test code = WBC) 8.4 3.7-10.4 [facility] PasoInzsiwuGFFXYUVMGK5580-61-30 09:17:00 Test Item Value Reference Range Interpretation Comments MCH (test code = MCH) 30.7 pg 27.0-31.0 [facility] PasoVpeguueAUOWKFKMOA2123-56-25 09:17:00 Test Item Value Reference Range Interpretation Comments MCV (test code = MCV) 89.3 80.0-98.0 [facility] PasoUtruopfWPQGJVUTAC7422-53-58 09:17:00 Test Item Value Reference Range Interpretation Comments Hct (test code = Hct) 34.0 36.0-48.0 [facility] PasoIjvrlxzSLRJIDLDBQ3691-12-65 09:17:00 Test Item Value Reference Range Interpretation Comments Platelet (test code = Platelet) 143 133-450 [facility] PasoCbngrjxPJXHGMIUZD6812-54-82 09:17:00 Test Item Value Reference Range Interpretation Comments RDW (test code = RDW) 13.2 11.5-14.5 [facility] PasoYputkiwJDJPBNTKFN3538-95-78 09:17:00 Test Item Value Reference Range Interpretation Comments MCHC (test code = MCHC) 34.4 32.0-36.0 [facility] PasoWucmbquJEMWWAIBPY1429-89-20 09:17:00 Test Item Value Reference Range Interpretation Comments MPV (test code = MPV) 10.3 7.4-10.4 [facility]2016-07-18 09:17:00 Test Item Value Reference Range Interpretation Comments eGFR (test code = eGFR) 94 [facility]2016-07-18 09:17:00 Test Item Value Reference Range Interpretation Comments Globulin (test code = Globulin) 3.7 2.0-4.0 [facility]2016-07-18 09:17:00 Test Item Value Reference Range Interpretation Comments ALT (test code = ALT) 24 See_Comment [Auto mated message] The system which ge nerated this result transmit shaun reference range : <=65. The reference range was not used to interpr et this result as jackeline l/abnormal. [facility]2016-07-18 09:17:00 Test Item Value Reference Range Interpretation Comments A/G Ratio (test code = A/G Ratio) 0.8 0.7-1.6 [facility]2016-07-18 09:17:00 Test Item Value Reference Range Interpretation Comments Alk Phos (test code = Alk Phos) 69 39-136 [facility]2016-07-18 09:17:00 Test Item Value Reference Range Interpretation Comments AST (test code = AST) 17 See_Comment [Auto mated message] The system which ge nerated this result transmit shaun reference range : <=37. The reference range was not used to interpr et this result as jackeline l/abnormal. [facility]2016-07-18 09:17:00 Test Item Value Reference Range Interpretation Comments eGFR (test code = eGFR) 94 [facility]2016-07-18 09:17:00 Test Item Value Reference Range Interpretation Comments Globulin (test code = Globulin) 3.7 2.0-4.0 [place] 523386-07-18 09:17:00 Test Item Value Reference Range Interpretation Comments Bili Total (test code = Bili Total) 0.6 0.2-1.3 [facility]2016-07-18 09:17:00 Test Item Value Reference Range Interpretation Comments ALT (test code = ALT) 24 See_Comment [Auto mated message] The system which ge nerated this result transmit shaun reference range : <=65. The reference range was not used to interpr et this result as jackeline l/abnormal. [facility]2016-07-18 09:17:00 Test Item Value Reference Range Interpretation Comments A/G Ratio (test code = A/G Ratio) 0.8 0.7-1.6 [place] 523386-07-18 09:17:00 Test Item Value Reference Range Interpretation Comments Alk Phos (test code = Alk Phos) 69 39-136 [facility]2016-07-18 09:17:00 Test Item Value Reference Range Interpretation Comments AST (test code = AST) 17 See_Comment [Auto mated message] The system which ge nerated this result transmit shaun reference range : <=37. The reference range was not used to interpr et this result as jackeline l/abnormal. [facility]2016-07-18 09:17:00 Test Item Value Reference Range Interpretation Comments Bili Total (test code = Bili Total) 0.6 0.2-1.3 [facility]Thing[facility] IEJCD5142-39-32 09:17:00 Test Item Value Reference Range Interpretation Comments Glucose Lvl (test code = Glucose Lvl) 102 70-99 [facility]2016-07-18 09:17:00 Test Item Value Reference Range Interpretation Comments BUN (test code = BUN) 10 7-22 [facility] HIVWC0635-97-59 09:17:00 Test Item Value Reference Range Interpretation Comments Creatinine Lvl (test code = Creatinine 0.68 0.50-1.40 Lvl) [facility]2016-07-18 09:17:00 Test Item Value Reference Range Interpretation Comments Chloride Lvl (test code = Chloride Lvl) 107 95-109 [facility]2016-07-18 09:17:00 Test Item Value Reference Range Interpretation Comments Potassium Lvl (test code = Potassium 3.9 3.5-5.1 Lvl) [place] 523386-07-18 09:17:00 Test Item Value Reference Range Interpretation Comments Glucose Lvl (test code = Glucose Lvl) 102 70-99 [place] 523386-07-18 09:17:00 Test Item Value Reference Range Interpretation Comments CO2 (test code = CO2) 29 24-32 [place] 523386-07-18 09:17:00 Test Item Value Reference Range Interpretation Comments Sodium Lvl (test code = Sodium Lvl) 143 135-145 [place] 523386-07-18 09:17:00 Test Item Value Reference Range Interpretation Comments Total Protein (test code = Total 6.5 6.4-8.4 Protein) [place] 523386-07-18 09:17:00 Test Item Value Reference Range Interpretation Comments B/C Ratio (test code = B/C Ratio) 15 6-25 [place] [address]-07-18 09:17:00 Test Item Value Reference Range Interpretation Comments Albumin Lvl (test code = Albumin Lvl) 2.8 3.5-5.0 [place] 523386-07-18 09:17:00 Test Item Value Reference Range Interpretation Comments Calcium Lvl (test code = Calcium Lvl) 8.6 8.5-10.5 [place] 523386-07-18 09:17:00 Test Item Value Reference Range Interpretation Comments AGAP (test code = AGAP) 10.9 10.0-20.0 [facility] PasoDlkwclxPHESGZVFUX8307-48-84 09:17:00 Test Item Value Reference Range Interpretation Comments Basophils (test code = 0.3 See_Comment [Aut omated message] The Basophils) system which nerated this result tra nsmitted reference range : <=1.0. The reference r lily was not used to int erpret this result as normal/abnormal . [facility] PasoVofqhvjPQLJQNBTJK7747-13-00 09:17:00 Test Item Value Reference Range Interpretation Comments Eosinophils (test code = 1.3 See_Comment [A utomated message] The Eosinophils) system which ge nerated this result tra nsmitted reference range : <=4.0. The reference r lily was not used to int erpret this result as normal/abnormal . [place] 101186-07-18 09:17:00 Test Item Value Reference Range Interpretation Comments Monocytes # (test code 0.7 See_Comment [Aut omated message] The = Monocytes #) system which generated this result tra nsmitted reference range : <=0.8. The reference r lily was not used to int erpret this result as normal/abnormal . [facility]2016-07-18 09:17:00 Test Item Value Reference Range Interpretation Comments BUN (test code = BUN) 10 7-22 [facility] PasoEbvmtvcQEFYPSPRBG1184-14-84 09:17:00 Test Item Value Reference Range Interpretation Comments Lymphocytes # (test code = Lymphocytes 1.7 1.0-5.5 #) [facility] PasoViyreihBVLYXGGNWJ7878-64-47 09:17:00 Test Item Value Reference Range Interpretation Comments Segs-Bands # (test code = Segs-Bands #) 5.8 1.5-8.1 [facility] PasoSdakquqCYNXUWLQEK9314-38-12 09:17:00 Test Item Value Reference Range Interpretation Comments Lymphocytes (test code = Lymphocytes) 20.7 20.0-40.0 [facility] PasoDwmoeqxXLBXZHVQUW7553-88-78 09:17:00 Test Item Value Reference Range Interpretation Comments Monocytes (test code = Monocytes) 8.4 2.0-12.0 [facility] PasoBdaqgtoWMBFPCMKLN9529-48-31 09:17:00 Test Item Value Reference Range Interpretation Comments Eosinophils # (test code 0.1 See_Comment [A utomated message] The = Eosinophils #) system whic h generated this result tra nsmitted reference range : <=0.5. The reference r lily was not used to int erpret this result as normal/abnormal . [facility] PasoDnunbhuJAPKNMDEKO9380-70-03 09:17:00 Test Item Value Reference Range Interpretation Comments Segs (test code = Segs) 69.3 45.0-75.0 [facility] PasoZkporwvSQIXFSIONE8407-13-36 09:17:00 Test Item Value Reference Range Interpretation Comments Hgb (test code = Hgb) 11.7 12.0-16.0 [facility] PasoGbdvzdmLAZLLWWNJB5239-53-32 09:17:00 Test Item Value Reference Range Interpretation Comments RBC (test code = RBC) 3.81 4.20-5.40 [facility] PasoNgijuedUBAOXOFAGM7104-86-95 09:17:00 Test Item Value Reference Range Interpretation Comments WBC (test code = WBC) 8.4 3.7-10.4 [facility] PasoLeyxkhaUJVXHLHIGH4923-20-17 09:17:00 Test Item Value Reference Range Interpretation Comments MCH (test code = MCH) 30.7 pg 27.0-31.0 [facility]2016-07-18 09:17:00 Test Item Value Reference Range Interpretation Comments Creatinine Lvl (test code = Creatinine 0.68 0.50-1.40 Lvl) [facility] PasoUfouafcKDGKZQQSHS0578-49-93 09:17:00 Test Item Value Reference Range Interpretation Comments MCV (test code = MCV) 89.3 80.0-98.0 [facility] PasoBkkhjhtUUXGZCXMIN3432-87-99 09:17:00 Test Item Value Reference Range Interpretation Comments Hct (test code = Hct) 34.0 36.0-48.0 [facility] PasoBbmjggvGTVZACAPRD8489-00-37 09:17:00 Test Item Value Reference Range Interpretation Comments Platelet (test code = Platelet) 143 133-450 [facility] PasoPacgeskKDOSEUFZOO8159-20-11 09:17:00 Test Item Value Reference Range Interpretation Comments RDW (test code = RDW) 13.2 11.5-14.5 [facility] PasoMivecmaLNBHJNOONS5394-86-20 09:17:00 Test Item Value Reference Range Interpretation Comments MCHC (test code = MCHC) 34.4 32.0-36.0 [facility] PasoLuepexlQEKKYGPMGF6079-21-02 09:17:00 Test Item Value Reference Range Interpretation Comments MPV (test code = MPV) 10.3 7.4-10.4 [facility]2016-07-18 09:17:00 Test Item Value Reference Range Interpretation Comments Chloride Lvl (test code = Chloride Lvl) 107 95-109 [facility]2016-07-18 09:17:00 Test Item Value Reference Range Interpretation Comments Potassium Lvl (test code = Potassium 3.9 3.5-5.1 Lvl) [facility]2016-07-18 09:17:00 Test Item Value Reference Range Interpretation Comments CO2 (test code = CO2) 29 24-32 [facility]2016-07-18 09:17:00 Test Item Value Reference Range Interpretation Comments Sodium Lvl (test code = Sodium Lvl) 143 135-145 [facility]2016-07-18 09:17:00 Test Item Value Reference Range Interpretation Comments Total Protein (test code = Total 6.5 6.4-8.4 Protein) [facility]2016-07-18 09:17:00 Test Item Value Reference Range Interpretation Comments B/C Ratio (test code = B/C Ratio) 15 6-25 [place] [address]-07-18 09:17:00 Test Item Value Reference Range Interpretation Comments Albumin Lvl (test code = Albumin Lvl) 2.8 3.5-5.0 [place] 523386-07-18 09:17:00 Test Item Value Reference Range Interpretation Comments Calcium Lvl (test code = Calcium Lvl) 8.6 8.5-10.5 [place] 523386-07-18 09:17:00 Test Item Value Reference Range Interpretation Comments AGAP (test code = AGAP) 10.9 10.0-20.0 [place] 101186-07-18 09:17:00 Test Item Value Reference Range Interpretation Comments Basophils (test code = 0.3 See_Comment [Aut omated message] The Basophils) system which ge nerated this result tra nsmitted reference range : <=1.0. The reference r lily was not used to int erpret this result as normal/abnormal . [facility] PasoDogbpawRHLJTPOMQB6100-80-89 09:17:00 Test Item Value Reference Range Interpretation Comments Eosinophils (test code = 1.3 See_Comment [A utomated message] The Eosinophils) system which ge nerated this result tra nsmitted reference range : <=4.0. The reference r lily was not used to int erpret this result as normal/abnormal . [place] 101186-07-18 09:17:00 Test Item Value Reference Range Interpretation Comments Monocytes # (test code 0.7 See_Comment [Aut omated message] The = Monocytes #) system which generated this result tra nsmitted reference range : <=0.8. The reference r lily was not used to int erpret this result as normal/abnormal . [place] [address]-07-18 09:17:00 Test Item Value Reference Range Interpretation Comments Lymphocytes # (test code = Lymphocytes 1.7 1.0-5.5 #) [place] [address]-07-18 09:17:00 Test Item Value Reference Range Interpretation Comments Segs-Bands # (test code = Segs-Bands #) 5.8 1.5-8.1 [facility] PasoKpampjmPOPNWHYNMV3709-93-52 09:17:00 Test Item Value Reference Range Interpretation Comments Lymphocytes (test code = Lymphocytes) 20.7 20.0-40.0 [facility] PasoSjguvquNMTHHPEWUB7727-59-28 09:17:00 Test Item Value Reference Range Interpretation Comments Monocytes (test code = Monocytes) 8.4 2.0-12.0 [facility] PasoUjymipmWNVBJWMFMP5973-36-50 09:17:00 Test Item Value Reference Range Interpretation Comments Eosinophils # (test code 0.1 See_Comment [A utomated message] The = Eosinophils #) system v2tel h generated this result tra nsmitted reference range : <=0.5. The reference r lily was not used to int erpret this result as normal/abnormal . [facility] PasoVstwaccXOTSTVYWMR4386-54-41 09:17:00 Test Item Value Reference Range Interpretation Comments Segs (test code = Segs) 69.3 45.0-75.0 [facility] PasoIbtfivwPLLMJNKLPX7682-20-43 09:17:00 Test Item Value Reference Range Interpretation Comments Hgb (test code = Hgb) 11.7 12.0-16.0 [facility] PasoJrfropsMHAZPYUCTM0071-19-98 09:17:00 Test Item Value Reference Range Interpretation Comments RBC (test code = RBC) 3.81 4.20-5.40 [facility] PasoNujvvbsUWLTJDIESN6245-16-31 09:17:00 Test Item Value Reference Range Interpretation Comments WBC (test code = WBC) 8.4 3.7-10.4 [facility] PasoYzqxvapDYHIRJEIHP9023-22-34 09:17:00 Test Item Value Reference Range Interpretation Comments MCH (test code = MCH) 30.7 pg 27.0-31.0 [facility] PasoFppsepjRSDTHGCJVW9119-90-93 09:17:00 Test Item Value Reference Range Interpretation Comments MCV (test code = MCV) 89.3 80.0-98.0 [facility] PasoHzjfugmTJIEXEVCGM7075-29-83 09:17:00 Test Item Value Reference Range Interpretation Comments Hct (test code = Hct) 34.0 36.0-48.0 [facility] PasoEhegafiUWSSBWFHVU6769-44-57 09:17:00 Test Item Value Reference Range Interpretation Comments Platelet (test code = Platelet) 143 133-450 [facility] PasoMgtstixPYWYKTYRJE9366-06-21 09:17:00 Test Item Value Reference Range Interpretation Comments RDW (test code = RDW) 13.2 11.5-14.5 [place] 523386-07-18 09:17:00 Test Item Value Reference Range Interpretation Comments eGFR (test code = eGFR) 94 [facility]2016-07-18 09:17:00 Test Item Value Reference Range Interpretation Comments Globulin (test code = Globulin) 3.7 2.0-4.0 [place] 523386-07-18 09:17:00 Test Item Value Reference Range Interpretation Comments ALT (test code = ALT) 24 See_Comment [Auto mated message] The system which ge nerated this result transmit shaun reference range : <=65. The reference range was not used to interpr et this result as jackeline l/abnormal. [place] 523386-07-18 09:17:00 Test Item Value Reference Range Interpretation Comments A/G Ratio (test code = A/G Ratio) 0.8 0.7-1.6 [facility]2016-07-18 09:17:00 Test Item Value Reference Range Interpretation Comments Alk Phos (test code = Alk Phos) 69 39-136 [facility]2016-07-18 09:17:00 Test Item Value Reference Range Interpretation Comments AST (test code = AST) 17 See_Comment [Auto mated message] The system which ge nerated this result transmit shaun reference range : <=37. The reference range was not used to interpr et this result as jackeline l/abnormal. [facility]2016-07-18 09:17:00 Test Item Value Reference Range Interpretation Comments Bili Total (test code = Bili Total) 0.6 0.2-1.3 [place] 523386-07-18 09:17:00 Test Item Value Reference Range Interpretation Comments Glucose Lvl (test code = Glucose Lvl) 102 70-99 [place] 523386-07-18 09:17:00 Test Item Value Reference Range Interpretation Comments BUN (test code = BUN) 10 7-22 [place] 101186-07-18 09:17:00 Test Item Value Reference Range Interpretation Comments MCHC (test code = MCHC) 34.4 32.0-36.0 [facility]2016-07-18 09:17:00 Test Item Value Reference Range Interpretation Comments Creatinine Lvl (test code = Creatinine 0.68 0.50-1.40 Lvl) [facility]2016-07-18 09:17:00 Test Item Value Reference Range Interpretation Comments Chloride Lvl (test code = Chloride Lvl) 107 95-109 [facility]2016-07-18 09:17:00 Test Item Value Reference Range Interpretation Comments Potassium Lvl (test code = Potassium 3.9 3.5-5.1 Lvl) [facility]2016-07-18 09:17:00 Test Item Value Reference Range Interpretation Comments CO2 (test code = CO2) 29 24-32 [facility]2016-07-18 09:17:00 Test Item Value Reference Range Interpretation Comments Sodium Lvl (test code = Sodium Lvl) 143 135-145 [facility]2016-07-18 09:17:00 Test Item Value Reference Range Interpretation Comments Total Protein (test code = Total 6.5 6.4-8.4 Protein) [facility]2016-07-18 09:17:00 Test Item Value Reference Range Interpretation Comments B/C Ratio (test code = B/C Ratio) 15 6-25 [place] 523386-07-18 09:17:00 Test Item Value Reference Range Interpretation Comments Albumin Lvl (test code = Albumin Lvl) 2.8 3.5-5.0 [facility]2016-07-18 09:17:00 Test Item Value Reference Range Interpretation Comments Calcium Lvl (test code = Calcium Lvl) 8.6 8.5-10.5 [facility]2016-07-18 09:17:00 Test Item Value Reference Range Interpretation Comments AGAP (test code = AGAP) 10.9 10.0-20.0 [facility] PasoUsvqsnsCJZAXEEPDD6460-07-21 09:17:00 Test Item Value Reference Range Interpretation Comments MPV (test code = MPV) 10.3 7.4-10.4 [facility] PasoBpueaohHQEEFASGOW4985-58-94 09:17:00 Test Item Value Reference Range Interpretation Comments Basophils (test code = 0.3 See_Comment [Aut omated message] The Basophils) system which ge nerated this result tra nsmitted reference range : <=1.0. The reference r lily was not used to int erpret this result as normal/abnormal . [facility] PasoEijuopxTNTPISHMYS1215-82-57 09:17:00 Test Item Value Reference Range Interpretation Comments Eosinophils (test code = 1.3 See_Comment [A utomated message] The Eosinophils) system which ge nerated this result tra nsmitted reference range : <=4.0. The reference r lily was not used to int erpret this result as normal/abnormal . [facility] PasoAevpggmXWKOIVIRGM2974-14-88 09:17:00 Test Item Value Reference Range Interpretation Comments Monocytes # (test code 0.7 See_Comment [Aut omated message] The = Monocytes #) system which generated this result tra nsmitted reference range : <=0.8. The reference r lily was not used to int erpret this result as normal/abnormal . [facility] PasoEzqekoxIRIHPEDTOC3032-59-54 09:17:00 Test Item Value Reference Range Interpretation Comments Lymphocytes # (test code = Lymphocytes 1.7 1.0-5.5 #) [facility] PasoNxnhsvtMNNWJEJOAH5998-00-05 09:17:00 Test Item Value Reference Range Interpretation Comments Segs-Bands # (test code = Segs-Bands #) 5.8 1.5-8.1 [facility] PasoOtfnnlxZDLIGWWQRE8136-33-76 09:17:00 Test Item Value Reference Range Interpretation Comments Lymphocytes (test code = Lymphocytes) 20.7 20.0-40.0 [facility] PasoAgxyxoaMSVWCAPAML8186-05-77 09:17:00 Test Item Value Reference Range Interpretation Comments Monocytes (test code = Monocytes) 8.4 2.0-12.0 [facility] PasoRbglxkpXLXZKPEVLD7019-00-95 09:17:00 Test Item Value Reference Range Interpretation Comments Eosinophils # (test code 0.1 See_Comment [A utomated message] The = Eosinophils #) system [facility] h generated this result tra nsmitted reference range : <=0.5. The reference r lily was not used to int erpret this result as normal/abnormal . [facility] PasoAhijqsoYTXNNGQERM7454-09-56 09:17:00 Test Item Value Reference Range Interpretation Comments Segs (test code = Segs) 69.3 45.0-75.0 [facility] PasoPvtvholVFSELHWHRQ5830-65-16 09:17:00 Test Item Value Reference Range Interpretation Comments Hgb (test code = Hgb) 11.7 12.0-16.0 [facility] PasoEdjqucmLBRFZNTUPG4040-80-01 09:17:00 Test Item Value Reference Range Interpretation Comments RBC (test code = RBC) 3.81 4.20-5.40 [facility] PasoFumgavqIVFIJRFYHP1412-44-65 09:17:00 Test Item Value Reference Range Interpretation Comments WBC (test code = WBC) 8.4 3.7-10.4 [facility] PasoJduamzcDTENKJMNHC8033-53-54 09:17:00 Test Item Value Reference Range Interpretation Comments MCH (test code = MCH) 30.7 pg 27.0-31.0 [facility] PasoCdzpbpkKWRKERQAMD3110-40-96 09:17:00 Test Item Value Reference Range Interpretation Comments MCV (test code = MCV) 89.3 80.0-98.0 [facility] PasoPosxtlcROWAGBEIUF9538-31-80 09:17:00 Test Item Value Reference Range Interpretation Comments Hct (test code = Hct) 34.0 36.0-48.0 [facility] PasoMgzmvwiYJMKDAMCFM3262-82-87 09:17:00 Test Item Value Reference Range Interpretation Comments Platelet (test code = Platelet) 143 133-450 [facility] PasoZzdfcvcDXHFCEUMVD2123-39-91 09:17:00 Test Item Value Reference Range Interpretation Comments RDW (test code = RDW) 13.2 11.5-14.5 [facility] PasoJzedjztKXKZVUPEJL6197-95-30 09:17:00 Test Item Value Reference Range Interpretation Comments MCHC (test code = MCHC) 34.4 32.0-36.0 [facility] PasoNkyatisBMXEAYKLLS4925-00-05 09:17:00 Test Item Value Reference Range Interpretation Comments MPV (test code = MPV) 10.3 7.4-10.4 [facility] VNTAC4494-06-42 09:17:00 Test Item Value Reference Range Interpretation Comments eGFR (test code = eGFR) 94 [facility] VVDWL9524-64-25 09:17:00 Test Item Value Reference Range Interpretation Comments Globulin (test code = Globulin) 3.7 2.0-4.0 [facility]2016-07-18 09:17:00 Test Item Value Reference Range Interpretation Comments ALT (test code = ALT) 24 See_Comment [Auto mated message] The system which ge nerated this result transmit shaun reference range : <=65. The reference range was not used to interpr et this result as jackeline l/abnormal. [place] 523386-07-18 09:17:00 Test Item Value Reference Range Interpretation Comments A/G Ratio (test code = A/G Ratio) 0.8 0.7-1.6 [place] 523386-07-18 09:17:00 Test Item Value Reference Range Interpretation Comments Alk Phos (test code = Alk Phos) 69 39-136 [place] 523386-07-18 09:17:00 Test Item Value Reference Range Interpretation Comments AST (test code = AST) 17 See_Comment [Auto mated message] The system which ge nerated this result transmit shaun reference range : <=37. The reference range was not used to interpr et this result as jackeline l/abnormal. [place] 523386-07-18 09:17:00 Test Item Value Reference Range Interpretation Comments Bili Total (test code = Bili Total) 0.6 0.2-1.3 [place] 523386-07-18 09:17:00 Test Item Value Reference Range Interpretation Comments Glucose Lvl (test code = Glucose Lvl) 102 70-99 [place] 523386-07-18 09:17:00 Test Item Value Reference Range Interpretation Comments BUN (test code = BUN) 10 7-22 [place] 523386-07-18 09:17:00 Test Item Value Reference Range Interpretation Comments Creatinine Lvl (test code = Creatinine 0.68 0.50-1.40 Lvl) [place] 523386-07-18 09:17:00 Test Item Value Reference Range Interpretation Comments Chloride Lvl (test code = Chloride Lvl) 107 95-109 [place] 523386-07-18 09:17:00 Test Item Value Reference Range Interpretation Comments Potassium Lvl (test code = Potassium 3.9 3.5-5.1 Lvl) [place] 523386-07-18 09:17:00 Test Item Value Reference Range Interpretation Comments CO2 (test code = CO2) 29 24-32 [facility]2016-07-18 09:17:00 Test Item Value Reference Range Interpretation Comments Sodium Lvl (test code = Sodium Lvl) 143 135-145 [facility]2016-07-18 09:17:00 Test Item Value Reference Range Interpretation Comments Total Protein (test code = Total 6.5 6.4-8.4 Protein) [facility]2016-07-18 09:17:00 Test Item Value Reference Range Interpretation Comments B/C Ratio (test code = B/C Ratio) 15 6-25 [place] 523386-07-18 09:17:00 Test Item Value Reference Range Interpretation Comments Albumin Lvl (test code = Albumin Lvl) 2.8 3.5-5.0 [place] 523386-07-18 09:17:00 Test Item Value Reference Range Interpretation Comments Calcium Lvl (test code = Calcium Lvl) 8.6 8.5-10.5 [facility]2016-07-18 09:17:00 Test Item Value Reference Range Interpretation Comments AGAP (test code = AGAP) 10.9 10.0-20.0 [facility] PasoZttcnmkZSZNARKXGZ3331-99-75 09:17:00 Test Item Value Reference Range Interpretation Comments Basophils (test code = 0.3 See_Comment [Aut omated message] The Basophils) system which ge nerated this result tra nsmitted reference range : <=1.0. The reference r lily was not used to int erpret this result as normal/abnormal . [facility] PasoYovhstjGEZVVHQZZY2173-16-19 09:17:00 Test Item Value Reference Range Interpretation Comments Eosinophils (test code = 1.3 See_Comment [A utomated message] The Eosinophils) system which ge nerated this result tra nsmitted reference range : <=4.0. The reference r lily was not used to int erpret this result as normal/abnormal . [facility] PasoUzdgsfkOFLCWHASFC3568-57-72 09:17:00 Test Item Value Reference Range Interpretation Comments Monocytes # (test code 0.7 See_Comment [Aut omated message] The = Monocytes #) system which generated this result tra nsmitted reference range : <=0.8. The reference r lily was not used to int erpret this result as normal/abnormal . [place] 101186-07-18 09:17:00 Test Item Value Reference Range Interpretation Comments Lymphocytes # (test code = Lymphocytes 1.7 1.0-5.5 #) [facility] PasoButurdtFMBUZWNPUQ2536-65-16 09:17:00 Test Item Value Reference Range Interpretation Comments Segs-Bands # (test code = Segs-Bands #) 5.8 1.5-8.1 [facility] PasoMyeiypzXDCCLVBZLJ2601-81-89 09:17:00 Test Item Value Reference Range Interpretation Comments Lymphocytes (test code = Lymphocytes) 20.7 20.0-40.0 [facility] PasoSmfjaabQQGJATBLIK9170-77-95 09:17:00 Test Item Value Reference Range Interpretation Comments Monocytes (test code = Monocytes) 8.4 2.0-12.0 [facility] PasoGxvsmprWTKDCCRYRC9595-32-75 09:17:00 Test Item Value Reference Range Interpretation Comments Eosinophils # (test code 0.1 See_Comment [A utomated message] The = Eosinophils #) system [employer] h generated this result tra nsmitted reference range : <=0.5. The reference r lily was not used to int erpret this result as normal/abnormal . [facility] PasoYkkbeqgEKIXEHWTMW0369-50-39 09:17:00 Test Item Value Reference Range Interpretation Comments Segs (test code = Segs) 69.3 45.0-75.0 [facility] PasoMrkqneuFHARAOGDLQ4195-64-06 09:17:00 Test Item Value Reference Range Interpretation Comments Hgb (test code = Hgb) 11.7 12.0-16.0 [facility] PasoMnwbuflYQQYMWTOEA9502-95-58 09:17:00 Test Item Value Reference Range Interpretation Comments RBC (test code = RBC) 3.81 4.20-5.40 [facility] PasoZjmqzgnVFXWZMZFVY4665-00-33 09:17:00 Test Item Value Reference Range Interpretation Comments WBC (test code = WBC) 8.4 3.7-10.4 [facility] PasoXygeilvPWIUGKQXVW7358-92-39 09:17:00 Test Item Value Reference Range Interpretation Comments MCH (test code = MCH) 30.7 pg 27.0-31.0 [facility] PasoSdqfrrkLRVPJTLYYY6545-06-66 09:17:00 Test Item Value Reference Range Interpretation Comments MCV (test code = MCV) 89.3 80.0-98.0 [facility] PasoXnlpyrfRYNVNWICMA7864-35-05 09:17:00 Test Item Value Reference Range Interpretation Comments Hct (test code = Hct) 34.0 36.0-48.0 [facility] PasoKdyrcsgYAGSTIBCZD6728-18-83 09:17:00 Test Item Value Reference Range Interpretation Comments Platelet (test code = Platelet) 143 133-450 [facility] PasoQkdzsbvUKBXMLDOUN3200-05-82 09:17:00 Test Item Value Reference Range Interpretation Comments RDW (test code = RDW) 13.2 11.5-14.5 [facility] PasoUvjsxpkVKCPVZFNVN3658-55-69 09:17:00 Test Item Value Reference Range Interpretation Comments MCHC (test code = MCHC) 34.4 32.0-36.0 [facility] PasoCewpkctFCNLJHUEYE2339-23-66 09:17:00 Test Item Value Reference Range Interpretation Comments MPV (test code = MPV) 10.3 7.4-10.4 [facility]2016-07-18 09:17:00 Test Item Value Reference Range Interpretation Comments eGFR (test code = eGFR) 94 [facility]2016-07-18 09:17:00 Test Item Value Reference Range Interpretation Comments Globulin (test code = Globulin) 3.7 2.0-4.0 [facility]2016-07-18 09:17:00 Test Item Value Reference Range Interpretation Comments ALT (test code = ALT) 24 See_Comment [Auto mated message] The system which ge nerated this result transmit shaun reference range : <=65. The reference range was not used to interpr et this result as jackeline l/abnormal. [facility]2016-07-18 09:17:00 Test Item Value Reference Range Interpretation Comments A/G Ratio (test code = A/G Ratio) 0.8 0.7-1.6 [facility]2016-07-18 09:17:00 Test Item Value Reference Range Interpretation Comments Alk Phos (test code = Alk Phos) 69 39-136 [facility]2016-07-18 09:17:00 Test Item Value Reference Range Interpretation Comments AST (test code = AST) 17 See_Comment [Auto mated message] The system which ge nerated this result transmit shaun reference range : <=37. The reference range was not used to interpr et this result as jackeline l/abnormal. [facility]2016-07-18 09:17:00 Test Item Value Reference Range Interpretation Comments Bili Total (test code = Bili Total) 0.6 0.2-1.3 [facility]2016-07-18 09:17:00 Test Item Value Reference Range Interpretation Comments Glucose Lvl (test code = Glucose Lvl) 102 70-99 [facility]2016-07-18 09:17:00 Test Item Value Reference Range Interpretation Comments BUN (test code = BUN) 10 7-22 [facility]2016-07-18 09:17:00 Test Item Value Reference Range Interpretation Comments Creatinine Lvl (test code = Creatinine 0.68 0.50-1.40 Lvl) [facility]2016-07-18 09:17:00 Test Item Value Reference Range Interpretation Comments Chloride Lvl (test code = Chloride Lvl) 107 95-109 [facility]2016-07-18 09:17:00 Test Item Value Reference Range Interpretation Comments Potassium Lvl (test code = Potassium 3.9 3.5-5.1 Lvl) [facility]2016-07-18 09:17:00 Test Item Value Reference Range Interpretation Comments CO2 (test code = CO2) 29 24-32 [facility]2016-07-18 09:17:00 Test Item Value Reference Range Interpretation Comments Sodium Lvl (test code = Sodium Lvl) 143 135-145 [facility]2016-07-18 09:17:00 Test Item Value Reference Range Interpretation Comments Total Protein (test code = Total 6.5 6.4-8.4 Protein) [facility]2016-07-18 09:17:00 Test Item Value Reference Range Interpretation Comments B/C Ratio (test code = B/C Ratio) 15 6-25 [facility]2016-07-18 09:17:00 Test Item Value Reference Range Interpretation Comments Albumin Lvl (test code = Albumin Lvl) 2.8 3.5-5.0 [facility]2016-07-18 09:17:00 Test Item Value Reference Range Interpretation Comments Calcium Lvl (test code = Calcium Lvl) 8.6 8.5-10.5 [place] 523386-07-18 09:17:00 Test Item Value Reference Range Interpretation Comments AGAP (test code = AGAP) 10.9 10.0-20.0 [facility] PasoZtnyuzmSYJKLYGJGR5189-14-67 09:17:00 Test Item Value Reference Range Interpretation Comments Basophils (test code = 0.3 See_Comment [Aut omated message] The Basophils) system which ge nerated this result tra nsmitted reference range : <=1.0. The reference r lily was not used to int erpret this result as normal/abnormal . [facility] PasoBaywmbyYNULPUMQST3051-73-96 09:17:00 Test Item Value Reference Range Interpretation Comments Eosinophils (test code = 1.3 See_Comment [A utomated message] The Eosinophils) system which ge nerated this result tra nsmitted reference range : <=4.0. The reference r lily was not used to int erpret this result as normal/abnormal . [facility] PasoIanolwyWTBFSCIVEM3873-37-74 09:17:00 Test Item Value Reference Range Interpretation Comments Monocytes # (test code 0.7 See_Comment [Aut omated message] The = Monocytes #) system which generated this result tra nsmitted reference range : <=0.8. The reference r lily was not used to int erpret this result as normal/abnormal . [facility] PasoBbrfidrGMLJACYLZN6344-38-80 09:17:00 Test Item Value Reference Range Interpretation Comments Lymphocytes # (test code = Lymphocytes 1.7 1.0-5.5 #) [facility] PasoCgymhogQUDAAAHTFV7444-39-89 09:17:00 Test Item Value Reference Range Interpretation Comments Segs-Bands # (test code = Segs-Bands #) 5.8 1.5-8.1 [facility] PasoUftxnswJABQONFETA2162-02-05 09:17:00 Test Item Value Reference Range Interpretation Comments Lymphocytes (test code = Lymphocytes) 20.7 20.0-40.0 [facility] PasoEhbcxogNMZBKPCBUA6136-51-54 09:17:00 Test Item Value Reference Range Interpretation Comments Monocytes (test code = Monocytes) 8.4 2.0-12.0 [facility] PasoEfcdkweNSQYKKUDLT9005-89-32 09:17:00 Test Item Value Reference Range Interpretation Comments Eosinophils # (test code 0.1 See_Comment [A utomated message] The = Eosinophils #) system [facility] h generated this result tra nsmitted reference range : <=0.5. The reference r lily was not used to int erpret this result as normal/abnormal . [facility] PasoQxajlplTWVNGPMFRK2087-22-00 09:17:00 Test Item Value Reference Range Interpretation Comments Segs (test code = Segs) 69.3 45.0-75.0 [facility] PasoTjjiykhQGODVZQKNY1402-15-51 09:17:00 Test Item Value Reference Range Interpretation Comments Hgb (test code = Hgb) 11.7 12.0-16.0 [facility] PasoHlyxhelSHWGVLIRLL3195-16-51 09:17:00 Test Item Value Reference Range Interpretation Comments RBC (test code = RBC) 3.81 4.20-5.40 [facility] PasoMqvqoevBFYBZSNRNH9994-19-62 09:17:00 Test Item Value Reference Range Interpretation Comments WBC (test code = WBC) 8.4 3.7-10.4 [facility] PasoQhnnwipTKZBUAFQAR9059-78-61 09:17:00 Test Item Value Reference Range Interpretation Comments MCH (test code = MCH) 30.7 pg 27.0-31.0 [facility] PasoMlruaqdDJQWZPXYXE1349-58-27 09:17:00 Test Item Value Reference Range Interpretation Comments MCV (test code = MCV) 89.3 80.0-98.0 [facility] PasoKvzpxyhYRGGOPUQZH2860-23-30 09:17:00 Test Item Value Reference Range Interpretation Comments Hct (test code = Hct) 34.0 36.0-48.0 [facility] PasoGddkuswVFSAFGJMAM2558-55-86 09:17:00 Test Item Value Reference Range Interpretation Comments Platelet (test code = Platelet) 143 133-450 [facility] PasoJkylgftVATYEASAGA7009-40-26 09:17:00 Test Item Value Reference Range Interpretation Comments RDW (test code = RDW) 13.2 11.5-14.5 [facility] PasoNtfyxhqLGWOYFKIJX1646-15-08 09:17:00 Test Item Value Reference Range Interpretation Comments MCHC (test code = MCHC) 34.4 32.0-36.0 [facility] PasoApjqtbuUJYQFJOEQQ2672-37-11 09:17:00 Test Item Value Reference Range Interpretation Comments MPV (test code = MPV) 10.3 7.4-10.4 [facility]CHE[facility] HPDMG6392-28-80 09:17:00 Test Item Value Reference Range Interpretation Comments eGFR (test code = eGFR) 94 [place] 523386-07-18 09:17:00 Test Item Value Reference Range Interpretation Comments Globulin (test code = Globulin) 3.7 2.0-4.0 [place] 523386-07-18 09:17:00 Test Item Value Reference Range Interpretation Comments ALT (test code = ALT) 24 See_Comment [Auto mated message] The system which ge nerated this result transmit shaun reference range : <=65. The reference range was not used to interpr et this result as jackeline l/abnormal. [facility]2016-07-18 09:17:00 Test Item Value Reference Range Interpretation Comments A/G Ratio (test code = A/G Ratio) 0.8 0.7-1.6 [place] [address]-07-18 09:17:00 Test Item Value Reference Range Interpretation Comments Alk Phos (test code = Alk Phos) 69 39-136 [facility]2016-07-18 09:17:00 Test Item Value Reference Range Interpretation Comments AST (test code = AST) 17 See_Comment [Auto mated message] The system which ge nerated this result transmit shaun reference range : <=37. The reference range was not used to interpr et this result as jackeline l/abnormal. [facility]2016-07-18 09:17:00 Test Item Value Reference Range Interpretation Comments Bili Total (test code = Bili Total) 0.6 0.2-1.3 [place] 523386-07-18 09:17:00 Test Item Value Reference Range Interpretation Comments Glucose Lvl (test code = Glucose Lvl) 102 70-99 [facility]2016-07-18 09:17:00 Test Item Value Reference Range Interpretation Comments BUN (test code = BUN) 10 7-22 [place] 523386-07-18 09:17:00 Test Item Value Reference Range Interpretation Comments Creatinine Lvl (test code = Creatinine 0.68 0.50-1.40 Lvl) [facility]2016-07-18 09:17:00 Test Item Value Reference Range Interpretation Comments Chloride Lvl (test code = Chloride Lvl) 107 95-109 [facility]2016-07-18 09:17:00 Test Item Value Reference Range Interpretation Comments Potassium Lvl (test code = Potassium 3.9 3.5-5.1 Lvl) [facility]2016-07-18 09:17:00 Test Item Value Reference Range Interpretation Comments CO2 (test code = CO2) 29 24-32 [facility]2016-07-18 09:17:00 Test Item Value Reference Range Interpretation Comments Sodium Lvl (test code = Sodium Lvl) 143 135-145 [place] 523386-07-18 09:17:00 Test Item Value Reference Range Interpretation Comments Total Protein (test code = Total 6.5 6.4-8.4 Protein) [place] 523386-07-18 09:17:00 Test Item Value Reference Range Interpretation Comments B/C Ratio (test code = B/C Ratio) 15 6-25 [place] 523386-07-18 09:17:00 Test Item Value Reference Range Interpretation Comments Albumin Lvl (test code = Albumin Lvl) 2.8 3.5-5.0 [facility]2016-07-18 09:17:00 Test Item Value Reference Range Interpretation Comments Calcium Lvl (test code = Calcium Lvl) 8.6 8.5-10.5 [place] 523386-07-18 09:17:00 Test Item Value Reference Range Interpretation Comments AGAP (test code = AGAP) 10.9 10.0-20.0 [facility]CmdimrzYKNYCPTTIE8343-39-26 09:17:00 Test Item Value Reference Range Interpretation Comments Basophils (test code = 0.3 See_Comment [Aut omated message] The Basophils) system which nerated this result tra nsmitted reference range : <=1.0. The reference r lily was not used to int erpret this result as normal/abnormal . [facility] PasoCayhufoDKOCBHCCLD4089-65-16 09:17:00 Test Item Value Reference Range Interpretation Comments Eosinophils (test code = 1.3 See_Comment [A utomated message] The Eosinophils) system which ge nerated this result tra nsmitted reference range : <=4.0. The reference r lily was not used to int erpret this result as normal/abnormal . [place] 101186-07-18 09:17:00 Test Item Value Reference Range Interpretation Comments Monocytes # (test code 0.7 See_Comment [Aut omated message] The = Monocytes #) system which generated this result tra nsmitted reference range : <=0.8. The reference r lily was not used to int erpret this result as normal/abnormal . [facility] PasoRbdlblyTLMGQRWRSS0953-48-43 09:17:00 Test Item Value Reference Range Interpretation Comments Lymphocytes # (test code = Lymphocytes 1.7 1.0-5.5 #) [facility] PasoNmwttstORYCXVEJBV1779-13-22 09:17:00 Test Item Value Reference Range Interpretation Comments Segs-Bands # (test code = Segs-Bands #) 5.8 1.5-8.1 [facility] PasoIwexpzhFJJONWTUEL1996-87-02 09:17:00 Test Item Value Reference Range Interpretation Comments Lymphocytes (test code = Lymphocytes) 20.7 20.0-40.0 [facility] PasoGgxvtxbCSRKWKEMSE8673-88-06 09:17:00 Test Item Value Reference Range Interpretation Comments Monocytes (test code = Monocytes) 8.4 2.0-12.0 [facility] PasoRrazighQBTTXJVWCU0294-60-77 09:17:00 Test Item Value Reference Range Interpretation Comments Eosinophils # (test code 0.1 See_Comment [A utomated message] The = Eosinophils #) system whic h generated this result tra nsmitted reference range : <=0.5. The reference r lily was not used to int erpret this result as normal/abnormal . [facility] PasoKlcsrtoBXSMFOOPDI3115-46-35 09:17:00 Test Item Value Reference Range Interpretation Comments Segs (test code = Segs) 69.3 45.0-75.0 [facility] PasoWdnhxwhUGCWNRLJCF9368-31-91 09:17:00 Test Item Value Reference Range Interpretation Comments Hgb (test code = Hgb) 11.7 12.0-16.0 [facility] PasoIrluwmeMVXZJCRMEM9680-90-07 09:17:00 Test Item Value Reference Range Interpretation Comments RBC (test code = RBC) 3.81 4.20-5.40 [facility] PasoOtuhgpaOVARTNBXWJ5886-02-18 09:17:00 Test Item Value Reference Range Interpretation Comments WBC (test code = WBC) 8.4 3.7-10.4 [facility] PasoQxblrrdALDZATJKHE2956-19-71 09:17:00 Test Item Value Reference Range Interpretation Comments MCH (test code = MCH) 30.7 pg 27.0-31.0 [place] 101186-07-18 09:17:00 Test Item Value Reference Range Interpretation Comments MCV (test code = MCV) 89.3 80.0-98.0 [place] 101186-07-18 09:17:00 Test Item Value Reference Range Interpretation Comments Hct (test code = Hct) 34.0 36.0-48.0 [place] 101186-07-18 09:17:00 Test Item Value Reference Range Interpretation Comments Platelet (test code = Platelet) 143 133-450 [facility] PasoMkgyfptNKPVPEQTPG6000-71-65 09:17:00 Test Item Value Reference Range Interpretation Comments RDW (test code = RDW) 13.2 11.5-14.5 [facility] PasoLfkthksEOAKGBJZBH2917-66-06 09:17:00 Test Item Value Reference Range Interpretation Comments MCHC (test code = MCHC) 34.4 32.0-36.0 [place] 101186-07-18 09:17:00 Test Item Value Reference Range Interpretation Comments MPV (test code = MPV) 10.3 7.4-10.4 [place] 523386-07-18 09:17:00 Test Item Value Reference Range Interpretation Comments eGFR (test code = eGFR) 94 [facility]2016-07-18 09:17:00 Test Item Value Reference Range Interpretation Comments Globulin (test code = Globulin) 3.7 2.0-4.0 [facility]2016-07-18 09:17:00 Test Item Value Reference Range Interpretation Comments ALT (test code = ALT) 24 See_Comment [Auto mated message] The system which ge nerated this result transmit shaun reference range : <=65. The reference range was not used to interpr et this result as jackeline l/abnormal. [facility]2016-07-18 09:17:00 Test Item Value Reference Range Interpretation Comments A/G Ratio (test code = A/G Ratio) 0.8 0.7-1.6 [place] 523386-07-18 09:17:00 Test Item Value Reference Range Interpretation Comments Alk Phos (test code = Alk Phos) 69 39-136 [facility]2016-07-18 09:17:00 Test Item Value Reference Range Interpretation Comments AST (test code = AST) 17 See_Comment [Auto mated message] The system which ge nerated this result transmit shaun reference range : <=37. The reference range was not used to interpr et this result as jackeline l/abnormal. [facility]2016-07-18 09:17:00 Test Item Value Reference Range Interpretation Comments Bili Total (test code = Bili Total) 0.6 0.2-1.3 [facility]2016-07-18 09:17:00 Test Item Value Reference Range Interpretation Comments Glucose Lvl (test code = Glucose Lvl) 102 70-99 [facility]2016-07-18 09:17:00 Test Item Value Reference Range Interpretation Comments BUN (test code = BUN) 10 7-22 [facility]2016-07-18 09:17:00 Test Item Value Reference Range Interpretation Comments Creatinine Lvl (test code = Creatinine 0.68 0.50-1.40 Lvl) [facility]2016-07-18 09:17:00 Test Item Value Reference Range Interpretation Comments Chloride Lvl (test code = Chloride Lvl) 107 95-109 [facility]2016-07-18 09:17:00 Test Item Value Reference Range Interpretation Comments Potassium Lvl (test code = Potassium 3.9 3.5-5.1 Lvl) [facility]2016-07-18 09:17:00 Test Item Value Reference Range Interpretation Comments CO2 (test code = CO2) 29 24-32 [facility]2016-07-18 09:17:00 Test Item Value Reference Range Interpretation Comments Sodium Lvl (test code = Sodium Lvl) 143 135-145 [facility]2016-07-18 09:17:00 Test Item Value Reference Range Interpretation Comments Total Protein (test code = Total 6.5 6.4-8.4 Protein) [facility]2016-07-18 09:17:00 Test Item Value Reference Range Interpretation Comments B/C Ratio (test code = B/C Ratio) 15 6-25 [place] 523386-07-18 09:17:00 Test Item Value Reference Range Interpretation Comments Albumin Lvl (test code = Albumin Lvl) 2.8 3.5-5.0 [facility]2016-07-18 09:17:00 Test Item Value Reference Range Interpretation Comments Calcium Lvl (test code = Calcium Lvl) 8.6 8.5-10.5 [facility]2016-07-18 09:17:00 Test Item Value Reference Range Interpretation Comments AGAP (test code = AGAP) 10.9 10.0-20.0 [facility] PasoVbppomgEUMLANLAHZ5535-07-42 09:17:00 Test Item Value Reference Range Interpretation Comments Basophils (test code = 0.3 See_Comment [Aut omated message] The Basophils) system which ge nerated this result tra nsmitted reference range : <=1.0. The reference r lily was not used to int erpret this result as normal/abnormal . [facility] PasoMfcszqhVQGKJFKKUI8930-10-82 09:17:00 Test Item Value Reference Range Interpretation Comments Eosinophils (test code = 1.3 See_Comment [A utomated message] The Eosinophils) system which ge nerated this result tra nsmitted reference range : <=4.0. The reference r lily was not used to int erpret this result as normal/abnormal . [facility] PasoGwoisrlUREEUJJYHT7687-84-99 09:17:00 Test Item Value Reference Range Interpretation Comments Monocytes # (test code 0.7 See_Comment [Aut omated message] The = Monocytes #) system which generated this result tra nsmitted reference range : <=0.8. The reference r lily was not used to int erpret this result as normal/abnormal . [facility] PasoPusmttpEIVWBADYFE1094-80-90 09:17:00 Test Item Value Reference Range Interpretation Comments Lymphocytes # (test code = Lymphocytes 1.7 1.0-5.5 #) [facility] PasoWyzurppLXKINLNJYG2808-59-22 09:17:00 Test Item Value Reference Range Interpretation Comments Segs-Bands # (test code = Segs-Bands #) 5.8 1.5-8.1 [facility] PasoSrernoxKKNUMWVWKJ8744-20-85 09:17:00 Test Item Value Reference Range Interpretation Comments Lymphocytes (test code = Lymphocytes) 20.7 20.0-40.0 [facility] PasoAerkaoaVUASILUJLZ1295-84-15 09:17:00 Test Item Value Reference Range Interpretation Comments Monocytes (test code = Monocytes) 8.4 2.0-12.0 [facility] PasoBkuxyqhSHXTMNCTMQ2358-47-18 09:17:00 Test Item Value Reference Range Interpretation Comments Eosinophils # (test code 0.1 See_Comment [A utomated message] The = Eosinophils #) system [employer] h generated this result tra nsmitted reference range : <=0.5. The reference r lily was not used to int erpret this result as normal/abnormal . [facility] PasoFvxduuwZEDOOQGCHN7245-82-70 09:17:00 Test Item Value Reference Range Interpretation Comments Segs (test code = Segs) 69.3 45.0-75.0 [facility] PasoSgytaraTYNDIVTVKX2877-00-73 09:17:00 Test Item Value Reference Range Interpretation Comments Hgb (test code = Hgb) 11.7 12.0-16.0 [facility] PasoLrgkdbcMWNWKKRHEF3855-25-21 09:17:00 Test Item Value Reference Range Interpretation Comments RBC (test code = RBC) 3.81 4.20-5.40 [facility] PasoVdieayzDLTFAYJCSG5825-90-47 09:17:00 Test Item Value Reference Range Interpretation Comments WBC (test code = WBC) 8.4 3.7-10.4 [facility] PasoQwhuqtpCEAUMIBMJI6075-68-25 09:17:00 Test Item Value Reference Range Interpretation Comments MCH (test code = MCH) 30.7 pg 27.0-31.0 [facility] PasoMcybalhYNKNICQRNY4429-29-67 09:17:00 Test Item Value Reference Range Interpretation Comments MCV (test code = MCV) 89.3 80.0-98.0 [facility] PasoKfadaaqKGHQSNXDDR0824-82-19 09:17:00 Test Item Value Reference Range Interpretation Comments Hct (test code = Hct) 34.0 36.0-48.0 [facility] PasoOawwjncLLIQNXGVWE4334-43-81 09:17:00 Test Item Value Reference Range Interpretation Comments Platelet (test code = Platelet) 143 133-450 [facility] PasoOpsusxuJFPRCUJSMD8304-66-05 09:17:00 Test Item Value Reference Range Interpretation Comments RDW (test code = RDW) 13.2 11.5-14.5 [facility] PasoPasxrauSXCQVYLPYF2699-29-29 09:17:00 Test Item Value Reference Range Interpretation Comments MCHC (test code = MCHC) 34.4 32.0-36.0 [facility] PasoDejdaolLMXCHOROPY9019-03-98 09:17:00 Test Item Value Reference Range Interpretation Comments MPV (test code = MPV) 10.3 7.4-10.4 [facility]2016-07-18 09:17:00 Test Item Value Reference Range Interpretation Comments eGFR (test code = eGFR) 94 [facility]2016-07-18 09:17:00 Test Item Value Reference Range Interpretation Comments Globulin (test code = Globulin) 3.7 2.0-4.0 [place] 523386-07-18 09:17:00 Test Item Value Reference Range Interpretation Comments ALT (test code = ALT) 24 See_Comment [Auto mated message] The system which ge nerated this result transmit shaun reference range : <=65. The reference range was not used to interpr et this result as jackeline l/abnormal. [place] 523386-07-18 09:17:00 Test Item Value Reference Range Interpretation Comments A/G Ratio (test code = A/G Ratio) 0.8 0.7-1.6 [place] 523386-07-18 09:17:00 Test Item Value Reference Range Interpretation Comments Alk Phos (test code = Alk Phos) 69 39-136 [place] 523386-07-18 09:17:00 Test Item Value Reference Range Interpretation Comments AST (test code = AST) 17 See_Comment [Auto mated message] The system which ge nerated this result transmit shaun reference range : <=37. The reference range was not used to interpr et this result as jackeline l/abnormal. [facility]2016-07-18 09:17:00 Test Item Value Reference Range Interpretation Comments Bili Total (test code = Bili Total) 0.6 0.2-1.3 [place] 523386-07-18 09:17:00 Test Item Value Reference Range Interpretation Comments Glucose Lvl (test code = Glucose Lvl) 102 70-99 [place] 523386-07-18 09:17:00 Test Item Value Reference Range Interpretation Comments BUN (test code = BUN) 10 7-22 [place] 523386-07-18 09:17:00 Test Item Value Reference Range Interpretation Comments Creatinine Lvl (test code = Creatinine 0.68 0.50-1.40 Lvl) [place] 523386-07-18 09:17:00 Test Item Value Reference Range Interpretation Comments Chloride Lvl (test code = Chloride Lvl) 107 95-109 [place] 523386-07-18 09:17:00 Test Item Value Reference Range Interpretation Comments Potassium Lvl (test code = Potassium 3.9 3.5-5.1 Lvl) [place] 523386-07-18 09:17:00 Test Item Value Reference Range Interpretation Comments CO2 (test code = CO2) 29 24-32 [place] 523386-07-18 09:17:00 Test Item Value Reference Range Interpretation Comments Sodium Lvl (test code = Sodium Lvl) 143 135-145 [place] 523386-07-18 09:17:00 Test Item Value Reference Range Interpretation Comments Total Protein (test code = Total 6.5 6.4-8.4 Protein) [place] 523386-07-18 09:17:00 Test Item Value Reference Range Interpretation Comments B/C Ratio (test code = B/C Ratio) 15 6-25 [place] 523386-07-18 09:17:00 Test Item Value Reference Range Interpretation Comments Albumin Lvl (test code = Albumin Lvl) 2.8 3.5-5.0 [place] 523386-07-18 09:17:00 Test Item Value Reference Range Interpretation Comments Calcium Lvl (test code = Calcium Lvl) 8.6 8.5-10.5 [place] 523386-07-18 09:17:00 Test Item Value Reference Range Interpretation Comments AGAP (test code = AGAP) 10.9 10.0-20.0 [place] 101186-07-18 09:17:00 Test Item Value Reference Range Interpretation Comments Basophils (test code = 0.3 See_Comment [Aut omated message] The Basophils) system which ge nerated this result tra nsmitted reference range : <=1.0. The reference r lily was not used to int erpret this result as normal/abnormal . [place] 101186-07-18 09:17:00 Test Item Value Reference Range Interpretation Comments Eosinophils (test code = 1.3 See_Comment [A utomated message] The Eosinophils) system which ge nerated this result tra nsmitted reference range : <=4.0. The reference r lily was not used to int erpret this result as normal/abnormal . [facility] PasoDvnfkxpAEOXBYGTPK2015-74-05 09:17:00 Test Item Value Reference Range Interpretation Comments Monocytes # (test code 0.7 See_Comment [Aut omated message] The = Monocytes #) system which generated this result tra nsmitted reference range : <=0.8. The reference r lily was not used to int erpret this result as normal/abnormal . [facility] PasoRexadjeXVGUAVAXEO3666-37-63 09:17:00 Test Item Value Reference Range Interpretation Comments Lymphocytes # (test code = Lymphocytes 1.7 1.0-5.5 #) [facility] PasoJwulsqcQMXIWMIIAX6820-83-66 09:17:00 Test Item Value Reference Range Interpretation Comments Segs-Bands # (test code = Segs-Bands #) 5.8 1.5-8.1 [facility] PasoWepbqenETPWYTZYEF6567-63-28 09:17:00 Test Item Value Reference Range Interpretation Comments Lymphocytes (test code = Lymphocytes) 20.7 20.0-40.0 [facility] PasoRjdtoabSJLMTVTNWI7224-78-78 09:17:00 Test Item Value Reference Range Interpretation Comments Monocytes (test code = Monocytes) 8.4 2.0-12.0 [facility] PasoHpfsjfbIWMONJKILF0880-87-01 09:17:00 Test Item Value Reference Range Interpretation Comments Eosinophils # (test code 0.1 See_Comment [A utomated message] The = Eosinophils #) system whic h generated this result tra nsmitted reference range : <=0.5. The reference r lily was not used to int erpret this result as normal/abnormal . [facility] PasoLvvorsjWBFLSWEFPW4017-73-11 09:17:00 Test Item Value Reference Range Interpretation Comments Segs (test code = Segs) 69.3 45.0-75.0 [facility] PasoMkmohmkYLICXZNNUB7906-66-27 09:17:00 Test Item Value Reference Range Interpretation Comments Hgb (test code = Hgb) 11.7 12.0-16.0 [facility] PasoRdowzceESZXUOMVWI2867-79-75 09:17:00 Test Item Value Reference Range Interpretation Comments RBC (test code = RBC) 3.81 4.20-5.40 [facility] PasoNspaqsgAWWOYPKICE7850-96-55 09:17:00 Test Item Value Reference Range Interpretation Comments WBC (test code = WBC) 8.4 3.7-10.4 [facility] PasoHpcnnlvDYHLAMVETE8084-31-67 09:17:00 Test Item Value Reference Range Interpretation Comments MCH (test code = MCH) 30.7 pg 27.0-31.0 [facility] PasoIluokheGLUXLKIJBW3990-99-27 09:17:00 Test Item Value Reference Range Interpretation Comments MCV (test code = MCV) 89.3 80.0-98.0 [facility] PasoIfzfwqvTVTNXAWBMU0255-18-73 09:17:00 Test Item Value Reference Range Interpretation Comments Hct (test code = Hct) 34.0 36.0-48.0 [facility] PasoWjfjsctMUXUIGUABK7684-97-37 09:17:00 Test Item Value Reference Range Interpretation Comments Platelet (test code = Platelet) 143 133-450 [facility] PasoExurseiNHWCYPHZKD3571-12-88 09:17:00 Test Item Value Reference Range Interpretation Comments RDW (test code = RDW) 13.2 11.5-14.5 [facility] PasoKrzcyczGEIELQHGER4521-89-34 09:17:00 Test Item Value Reference Range Interpretation Comments MCHC (test code = MCHC) 34.4 32.0-36.0 [facility] PasoKnlqmbgBYSIEGZKSR1526-39-67 09:17:00 Test Item Value Reference Range Interpretation Comments MPV (test code = MPV) 10.3 7.4-10.4 [facility]2016-07-18 09:17:00 Test Item Value Reference Range Interpretation Comments eGFR (test code = eGFR) 94 [facility]2016-07-18 09:17:00 Test Item Value Reference Range Interpretation Comments Globulin (test code = Globulin) 3.7 2.0-4.0 [facility]2016-07-18 09:17:00 Test Item Value Reference Range Interpretation Comments ALT (test code = ALT) 24 See_Comment [Auto mated message] The system which ge nerated this result transmit shaun reference range : <=65. The reference range was not used to interpr et this result as jackeline l/abnormal. [facility]2016-07-18 09:17:00 Test Item Value Reference Range Interpretation Comments A/G Ratio (test code = A/G Ratio) 0.8 0.7-1.6 [place] 523386-07-18 09:17:00 Test Item Value Reference Range Interpretation Comments Alk Phos (test code = Alk Phos) 69 39-136 [facility]2016-07-18 09:17:00 Test Item Value Reference Range Interpretation Comments AST (test code = AST) 17 See_Comment [Auto mated message] The system which ge nerated this result transmit shaun reference range : <=37. The reference range was not used to interpr et this result as jackeline l/abnormal. [facility]2016-07-18 09:17:00 Test Item Value Reference Range Interpretation Comments Bili Total (test code = Bili Total) 0.6 0.2-1.3 [facility]2016-07-18 09:17:00 Test Item Value Reference Range Interpretation Comments Glucose Lvl (test code = Glucose Lvl) 102 70-99 [facility]2016-07-18 09:17:00 Test Item Value Reference Range Interpretation Comments BUN (test code = BUN) 10 7-22 [facility]2016-07-18 09:17:00 Test Item Value Reference Range Interpretation Comments Creatinine Lvl (test code = Creatinine 0.68 0.50-1.40 Lvl) [facility]2016-07-18 09:17:00 Test Item Value Reference Range Interpretation Comments Chloride Lvl (test code = Chloride Lvl) 107 95-109 [facility]2016-07-18 09:17:00 Test Item Value Reference Range Interpretation Comments Potassium Lvl (test code = Potassium 3.9 3.5-5.1 Lvl) [facility]2016-07-18 09:17:00 Test Item Value Reference Range Interpretation Comments CO2 (test code = CO2) 29 24-32 [facility]2016-07-18 09:17:00 Test Item Value Reference Range Interpretation Comments Sodium Lvl (test code = Sodium Lvl) 143 135-145 [facility]2016-07-18 09:17:00 Test Item Value Reference Range Interpretation Comments Total Protein (test code = Total 6.5 6.4-8.4 Protein) [facility]2016-07-18 09:17:00 Test Item Value Reference Range Interpretation Comments B/C Ratio (test code = B/C Ratio) 15 6-25 [place] 523386-07-18 09:17:00 Test Item Value Reference Range Interpretation Comments Albumin Lvl (test code = Albumin Lvl) 2.8 3.5-5.0 [facility]2016-07-18 09:17:00 Test Item Value Reference Range Interpretation Comments Calcium Lvl (test code = Calcium Lvl) 8.6 8.5-10.5 [facility]2016-07-18 09:17:00 Test Item Value Reference Range Interpretation Comments AGAP (test code = AGAP) 10.9 10.0-20.0 [facility] PasoUwdlpmvPBFHNARNFA1070-72-16 09:17:00 Test Item Value Reference Range Interpretation Comments Basophils (test code = 0.3 See_Comment [Aut omated message] The Basophils) system which ge nerated this result tra nsmitted reference range : <=1.0. The reference r lily was not used to int erpret this result as normal/abnormal . [facility]YxbvgbcZOCQCADFDZ4690-29-04 09:17:00 Test Item Value Reference Range Interpretation Comments Eosinophils (test code = 1.3 See_Comment [A utomated message] The Eosinophils) system which ge nerated this result tra nsmitted reference range : <=4.0. The reference r lily was not used to int erpret this result as normal/abnormal . [facility] PasoFwrfxwhRFWWBNVIVN9917-41-16 09:17:00 Test Item Value Reference Range Interpretation Comments Monocytes # (test code 0.7 See_Comment [Aut omated message] The = Monocytes #) system which generated this result tra nsmitted reference range : <=0.8. The reference r lily was not used to int erpret this result as normal/abnormal . [facility] PasoQlmfnhtUOAKSIWUQH4092-18-35 09:17:00 Test Item Value Reference Range Interpretation Comments Lymphocytes # (test code = Lymphocytes 1.7 1.0-5.5 #) [facility] PasoCujixgbOUDUQIPWGZ8377-36-95 09:17:00 Test Item Value Reference Range Interpretation Comments Segs-Bands # (test code = Segs-Bands #) 5.8 1.5-8.1 [facility] PasoUhtnawwFYRHLQGGQU4153-56-93 09:17:00 Test Item Value Reference Range Interpretation Comments Lymphocytes (test code = Lymphocytes) 20.7 20.0-40.0 [place] 101186-07-18 09:17:00 Test Item Value Reference Range Interpretation Comments Monocytes (test code = Monocytes) 8.4 2.0-12.0 [facility] PasoQegcqunKCCSXGYIMW8493-96-03 09:17:00 Test Item Value Reference Range Interpretation Comments Eosinophils # (test code 0.1 See_Comment [A utomated message] The = Eosinophils #) system v2tel h generated this result tra nsmitted reference range : <=0.5. The reference r lily was not used to int erpret this result as normal/abnormal . [facility] PasoOvijobuKLWHCDACJZ1091-47-46 09:17:00 Test Item Value Reference Range Interpretation Comments Segs (test code = Segs) 69.3 45.0-75.0 [facility] PasoYldvurpSOEYCSTQOS7436-85-78 09:17:00 Test Item Value Reference Range Interpretation Comments Hgb (test code = Hgb) 11.7 12.0-16.0 [facility] PasoHftztfwNOOFEFRAPX9313-60-01 09:17:00 Test Item Value Reference Range Interpretation Comments RBC (test code = RBC) 3.81 4.20-5.40 [facility] PasoVqtaxssZLKNJPZYGF9234-70-32 09:17:00 Test Item Value Reference Range Interpretation Comments WBC (test code = WBC) 8.4 3.7-10.4 [facility] PasoDjneffeJCIHUGVABT6668-11-72 09:17:00 Test Item Value Reference Range Interpretation Comments MCH (test code = MCH) 30.7 pg 27.0-31.0 [facility] PasoEbvwjnsAKKSUDMJLN8459-77-38 09:17:00 Test Item Value Reference Range Interpretation Comments MCV (test code = MCV) 89.3 80.0-98.0 [facility] PasoNrsylggWUIYGMJARG4286-05-06 09:17:00 Test Item Value Reference Range Interpretation Comments Hct (test code = Hct) 34.0 36.0-48.0 [facility] PasoJxnsdgwPZWBOEMBGL8128-47-20 09:17:00 Test Item Value Reference Range Interpretation Comments Platelet (test code = Platelet) 143 133-450 [facility] PasoCcuxxuaDKOEFBBGSM3750-02-56 09:17:00 Test Item Value Reference Range Interpretation Comments RDW (test code = RDW) 13.2 11.5-14.5 [facility] PasoXvpmkciGBLTWMOHYA0355-13-34 09:17:00 Test Item Value Reference Range Interpretation Comments MCHC (test code = MCHC) 34.4 32.0-36.0 [facility] PasoDfdhkswQOYZIVWKQE5732-44-36 09:17:00 Test Item Value Reference Range Interpretation Comments MPV (test code = MPV) 10.3 7.4-10.4 [place] 523386-07-18 09:17:00 Test Item Value Reference Range Interpretation Comments eGFR (test code = eGFR) 94 [facility]2016-07-18 09:17:00 Test Item Value Reference Range Interpretation Comments Globulin (test code = Globulin) 3.7 2.0-4.0 [facility]2016-07-18 09:17:00 Test Item Value Reference Range Interpretation Comments ALT (test code = ALT) 24 See_Comment [Auto mated message] The system which ge nerated this result transmit shaun reference range : <=65. The reference range was not used to interpr et this result as jackeline l/abnormal. [facility]2016-07-18 09:17:00 Test Item Value Reference Range Interpretation Comments A/G Ratio (test code = A/G Ratio) 0.8 0.7-1.6 [facility]2016-07-18 09:17:00 Test Item Value Reference Range Interpretation Comments Alk Phos (test code = Alk Phos) 69 39-136 [facility]2016-07-18 09:17:00 Test Item Value Reference Range Interpretation Comments AST (test code = AST) 17 See_Comment [Auto mated message] The system which ge nerated this result transmit shaun reference range : <=37. The reference range was not used to interpr et this result as jackeline l/abnormal. [facility]2016-07-18 09:17:00 Test Item Value Reference Range Interpretation Comments Bili Total (test code = Bili Total) 0.6 0.2-1.3 [place] 523386-07-18 09:17:00 Test Item Value Reference Range Interpretation Comments Glucose Lvl (test code = Glucose Lvl) 102 70-99 [facility]2016-07-18 09:17:00 Test Item Value Reference Range Interpretation Comments BUN (test code = BUN) 10 7-22 [place] 523386-07-18 09:17:00 Test Item Value Reference Range Interpretation Comments Creatinine Lvl (test code = Creatinine 0.68 0.50-1.40 Lvl) [facility]2016-07-18 09:17:00 Test Item Value Reference Range Interpretation Comments Chloride Lvl (test code = Chloride Lvl) 107 95-109 [place] 523386-07-18 09:17:00 Test Item Value Reference Range Interpretation Comments Potassium Lvl (test code = Potassium 3.9 3.5-5.1 Lvl) [facility]2016-07-18 09:17:00 Test Item Value Reference Range Interpretation Comments CO2 (test code = CO2) 29 24-32 [place] 523386-07-18 09:17:00 Test Item Value Reference Range Interpretation Comments Sodium Lvl (test code = Sodium Lvl) 143 135-145 [place] 523386-07-18 09:17:00 Test Item Value Reference Range Interpretation Comments Total Protein (test code = Total 6.5 6.4-8.4 Protein) [facility]2016-07-18 09:17:00 Test Item Value Reference Range Interpretation Comments B/C Ratio (test code = B/C Ratio) 15 6-25 [place] 523386-07-18 09:17:00 Test Item Value Reference Range Interpretation Comments Albumin Lvl (test code = Albumin Lvl) 2.8 3.5-5.0 [place] 523386-07-18 09:17:00 Test Item Value Reference Range Interpretation Comments Calcium Lvl (test code = Calcium Lvl) 8.6 8.5-10.5 [facility]2016-07-18 09:17:00 Test Item Value Reference Range Interpretation Comments AGAP (test code = AGAP) 10.9 10.0-20.0 [facility] PasoQsmwaurIIFIZKQLJY3960-79-01 09:17:00 Test Item Value Reference Range Interpretation Comments Basophils (test code = 0.3 See_Comment [Aut omated message] The Basophils) system which ge nerated this result tra nsmitted reference range : <=1.0. The reference r lily was not used to int erpret this result as normal/abnormal . [facility] PasoKoolejxKMFFKNOPWB2165-38-87 09:17:00 Test Item Value Reference Range Interpretation Comments Eosinophils (test code = 1.3 See_Comment [A utomated message] The Eosinophils) system which ge nerated this result tra nsmitted reference range : <=4.0. The reference r lily was not used to int erpret this result as normal/abnormal . [facility] PasoXcouptfFTSVQEKHRW5768-04-14 09:17:00 Test Item Value Reference Range Interpretation Comments Monocytes # (test code 0.7 See_Comment [Aut omated message] The = Monocytes #) system which generated this result tra nsmitted reference range : <=0.8. The reference r lily was not used to int erpret this result as normal/abnormal . [facility] PasoPagdvuqAVOPECHOZS1670-46-24 09:17:00 Test Item Value Reference Range Interpretation Comments Lymphocytes # (test code = Lymphocytes 1.7 1.0-5.5 #) [facility] PasoEnlrcxkVYQOGJZZUG8007-66-80 09:17:00 Test Item Value Reference Range Interpretation Comments Segs-Bands # (test code = Segs-Bands #) 5.8 1.5-8.1 [facility] PasoXylntieGZMKFWTYZZ0565-76-06 09:17:00 Test Item Value Reference Range Interpretation Comments Lymphocytes (test code = Lymphocytes) 20.7 20.0-40.0 [facility] PasoAkmemxcORONXSNZQK4318-43-71 09:17:00 Test Item Value Reference Range Interpretation Comments Monocytes (test code = Monocytes) 8.4 2.0-12.0 [facility] PasoNcfqqbyNNJMNRPTDP5481-96-61 09:17:00 Test Item Value Reference Range Interpretation Comments Eosinophils # (test code 0.1 See_Comment [A utomated message] The = Eosinophils #) system [facility] h generated this result tra nsmitted reference range : <=0.5. The reference r lily was not used to int erpret this result as normal/abnormal . [facility] PasoRtyhbwcPFQNPFPPTP0376-89-75 09:17:00 Test Item Value Reference Range Interpretation Comments Segs (test code = Segs) 69.3 45.0-75.0 [facility] PasoMfhujucGYHGYEQJFR3282-33-80 09:17:00 Test Item Value Reference Range Interpretation Comments Hgb (test code = Hgb) 11.7 12.0-16.0 [facility] PasoTaftmgxLMBPURTTAB0081-02-21 09:17:00 Test Item Value Reference Range Interpretation Comments RBC (test code = RBC) 3.81 4.20-5.40 [facility] PasoZqunqgfEMUDOUNNMC6907-55-79 09:17:00 Test Item Value Reference Range Interpretation Comments WBC (test code = WBC) 8.4 3.7-10.4 [facility] PasoBfdhuswTVHNEUKWKM3351-97-80 09:17:00 Test Item Value Reference Range Interpretation Comments MCH (test code = MCH) 30.7 pg 27.0-31.0 [facility] PasoGdlcqetPXQPDPUNRY8213-50-34 09:17:00 Test Item Value Reference Range Interpretation Comments MCV (test code = MCV) 89.3 80.0-98.0 [facility] PasoQefjrleKBFYMMVESX5569-61-63 09:17:00 Test Item Value Reference Range Interpretation Comments Hct (test code = Hct) 34.0 36.0-48.0 [facility] PasoAkwdklgYPTQRMSORE1181-18-99 09:17:00 Test Item Value Reference Range Interpretation Comments Platelet (test code = Platelet) 143 133-450 [facility] PasoFazbbsfSMGJMCUJZT2710-89-98 09:17:00 Test Item Value Reference Range Interpretation Comments RDW (test code = RDW) 13.2 11.5-14.5 [facility] PasoMtfgejmIIOHCRLXLY4763-21-10 09:17:00 Test Item Value Reference Range Interpretation Comments MCHC (test code = MCHC) 34.4 32.0-36.0 [facility] PasoPfdxgefWLBJHAHLWS2167-08-15 09:17:00 Test Item Value Reference Range Interpretation Comments MPV (test code = MPV) 10.3 7.4-10.4 [facility]2016-07-18 09:17:00 Test Item Value Reference Range Interpretation Comments eGFR (test code = eGFR) 94 [facility]2016-07-18 09:17:00 Test Item Value Reference Range Interpretation Comments Globulin (test code = Globulin) 3.7 2.0-4.0 [facility]2016-07-18 09:17:00 Test Item Value Reference Range Interpretation Comments ALT (test code = ALT) 24 See_Comment [Auto mated message] The system which ge nerated this result transmit shaun reference range : <=65. The reference range was not used to interpr et this result as jackeline l/abnormal. [facility]2016-07-18 09:17:00 Test Item Value Reference Range Interpretation Comments A/G Ratio (test code = A/G Ratio) 0.8 0.7-1.6 [facility]2016-07-18 09:17:00 Test Item Value Reference Range Interpretation Comments Alk Phos (test code = Alk Phos) 69 39-136 [facility]2016-07-18 09:17:00 Test Item Value Reference Range Interpretation Comments AST (test code = AST) 17 See_Comment [Auto mated message] The system which ge nerated this result transmit shaun reference range : <=37. The reference range was not used to interpr et this result as jackeline l/abnormal. [facility]2016-07-18 09:17:00 Test Item Value Reference Range Interpretation Comments Bili Total (test code = Bili Total) 0.6 0.2-1.3 [facility]2016-07-18 09:17:00 Test Item Value Reference Range Interpretation Comments Glucose Lvl (test code = Glucose Lvl) 102 70-99 [facility]2016-07-18 09:17:00 Test Item Value Reference Range Interpretation Comments BUN (test code = BUN) 10 7-22 [facility]2016-07-18 09:17:00 Test Item Value Reference Range Interpretation Comments Creatinine Lvl (test code = Creatinine 0.68 0.50-1.40 Lvl) [facility]2016-07-18 09:17:00 Test Item Value Reference Range Interpretation Comments Chloride Lvl (test code = Chloride Lvl) 107 95-109 [facility]2016-07-18 09:17:00 Test Item Value Reference Range Interpretation Comments Potassium Lvl (test code = Potassium 3.9 3.5-5.1 Lvl) [facility]2016-07-18 09:17:00 Test Item Value Reference Range Interpretation Comments CO2 (test code = CO2) 29 24-32 [facility]2016-07-18 09:17:00 Test Item Value Reference Range Interpretation Comments Sodium Lvl (test code = Sodium Lvl) 143 135-145 [facility]2016-07-18 09:17:00 Test Item Value Reference Range Interpretation Comments Total Protein (test code = Total 6.5 6.4-8.4 Protein) [facility]2016-07-18 09:17:00 Test Item Value Reference Range Interpretation Comments B/C Ratio (test code = B/C Ratio) 15 6-25 [facility]2016-07-18 09:17:00 Test Item Value Reference Range Interpretation Comments Albumin Lvl (test code = Albumin Lvl) 2.8 3.5-5.0 [place] 523386-07-18 09:17:00 Test Item Value Reference Range Interpretation Comments Calcium Lvl (test code = Calcium Lvl) 8.6 8.5-10.5 [facility]2016-07-18 09:17:00 Test Item Value Reference Range Interpretation Comments AGAP (test code = AGAP) 10.9 10.0-20.0 [facility] PasoTwsikygYMCCSPIPIR3143-12-94 09:17:00 Test Item Value Reference Range Interpretation Comments Basophils (test code = 0.3 See_Comment [Aut omated message] The Basophils) system which ge nerated this result tra nsmitted reference range : <=1.0. The reference r lily was not used to int erpret this result as normal/abnormal . [facility] PasoFcibwtoWJIXEILEGN2632-17-77 09:17:00 Test Item Value Reference Range Interpretation Comments Eosinophils (test code = 1.3 See_Comment [A utomated message] The Eosinophils) system which ge nerated this result tra nsmitted reference range : <=4.0. The reference r lily was not used to int erpret this result as normal/abnormal . [facility] PasoNupzsytLHIFCYLLXV8370-00-62 09:17:00 Test Item Value Reference Range Interpretation Comments Monocytes # (test code 0.7 See_Comment [Aut omated message] The = Monocytes #) system which generated this result tra nsmitted reference range : <=0.8. The reference r lily was not used to int erpret this result as normal/abnormal . [facility] PasoTpqeejpHLSTQYYDLH6426-17-85 09:17:00 Test Item Value Reference Range Interpretation Comments Lymphocytes # (test code = Lymphocytes 1.7 1.0-5.5 #) [facility] PasoKkaepyfXIIGHTJVKA1139-93-56 09:17:00 Test Item Value Reference Range Interpretation Comments Segs-Bands # (test code = Segs-Bands #) 5.8 1.5-8.1 [facility] PasoLirhiyzIDDYRMKRFV0841-05-13 09:17:00 Test Item Value Reference Range Interpretation Comments Lymphocytes (test code = Lymphocytes) 20.7 20.0-40.0 [facility] PasoZfwsmiyKZNWVZXGAB5174-93-76 09:17:00 Test Item Value Reference Range Interpretation Comments Monocytes (test code = Monocytes) 8.4 2.0-12.0 [facility] PasoFrdctopSUZNVCWEPR3207-30-57 09:17:00 Test Item Value Reference Range Interpretation Comments Eosinophils # (test code 0.1 See_Comment [A utomated message] The = Eosinophils #) system v2tel h generated this result tra nsmitted reference range : <=0.5. The reference r lily was not used to int erpret this result as normal/abnormal . [facility] PasoKclhqeaGKZWWUIQBT6225-04-34 09:17:00 Test Item Value Reference Range Interpretation Comments Segs (test code = Segs) 69.3 45.0-75.0 [facility] PasoUbjoyvxKAPHMEAHWI4170-83-93 09:17:00 Test Item Value Reference Range Interpretation Comments Hgb (test code = Hgb) 11.7 12.0-16.0 [facility] PasoYjdoxjxJFBLVWEDPJ1468-07-55 09:17:00 Test Item Value Reference Range Interpretation Comments RBC (test code = RBC) 3.81 4.20-5.40 [facility] PasoKrwouswWSCRNFHIUG0379-49-00 09:17:00 Test Item Value Reference Range Interpretation Comments WBC (test code = WBC) 8.4 3.7-10.4 [facility] PasoKgyylblQVBVKFEIAT4531-54-17 09:17:00 Test Item Value Reference Range Interpretation Comments MCH (test code = MCH) 30.7 pg 27.0-31.0 [facility] PasoCetwdyjZTOUXWMPPU1676-27-41 09:17:00 Test Item Value Reference Range Interpretation Comments MCV (test code = MCV) 89.3 80.0-98.0 [facility] PasoMqiwuzkCTVNXIFLUB7327-90-15 09:17:00 Test Item Value Reference Range Interpretation Comments Hct (test code = Hct) 34.0 36.0-48.0 [facility] PasoJaeoqdoPIQRFUVSUR5918-78-19 09:17:00 Test Item Value Reference Range Interpretation Comments Platelet (test code = Platelet) 143 133-450 [facility] PasoIaxmyqbISAUSPCMBL0636-80-66 09:17:00 Test Item Value Reference Range Interpretation Comments RDW (test code = RDW) 13.2 11.5-14.5 [facility] PasoQgqvywaCGUDWKLOHW1740-56-76 09:17:00 Test Item Value Reference Range Interpretation Comments MCHC (test code = MCHC) 34.4 32.0-36.0 [facility] PasoHnxddomDSHQRKZAKW1116-58-13 09:17:00 Test Item Value Reference Range Interpretation Comments MPV (test code = MPV) 10.3 7.4-10.4 [facility]2016-07-18 09:17:00 Test Item Value Reference Range Interpretation Comments eGFR (test code = eGFR) 94 [facility]2016-07-18 09:17:00 Test Item Value Reference Range Interpretation Comments Globulin (test code = Globulin) 3.7 2.0-4.0 [facility]2016-07-18 09:17:00 Test Item Value Reference Range Interpretation Comments ALT (test code = ALT) 24 See_Comment [Auto mated message] The system which ge nerated this result transmit shaun reference range : <=65. The reference range was not used to interpr et this result as jackeline l/abnormal. [facility]2016-07-18 09:17:00 Test Item Value Reference Range Interpretation Comments A/G Ratio (test code = A/G Ratio) 0.8 0.7-1.6 [facility]2016-07-18 09:17:00 Test Item Value Reference Range Interpretation Comments Alk Phos (test code = Alk Phos) 69 39-136 [facility]2016-07-18 09:17:00 Test Item Value Reference Range Interpretation Comments AST (test code = AST) 17 See_Comment [Auto mated message] The system which ge nerated this result transmit shaun reference range : <=37. The reference range was not used to interpr et this result as jackeline l/abnormal. [facility]2016-07-18 09:17:00 Test Item Value Reference Range Interpretation Comments eGFR (test code = eGFR) 94 [facility]2016-07-18 09:17:00 Test Item Value Reference Range Interpretation Comments Globulin (test code = Globulin) 3.7 2.0-4.0 [place] 523386-07-18 09:17:00 Test Item Value Reference Range Interpretation Comments Bili Total (test code = Bili Total) 0.6 0.2-1.3 [facility]2016-07-18 09:17:00 Test Item Value Reference Range Interpretation Comments ALT (test code = ALT) 24 See_Comment [Auto mated message] The system which ge nerated this result transmit shaun reference range : <=65. The reference range was not used to interpr et this result as jackeline l/abnormal. [facility]2016-07-18 09:17:00 Test Item Value Reference Range Interpretation Comments A/G Ratio (test code = A/G Ratio) 0.8 0.7-1.6 [facility]2016-07-18 09:17:00 Test Item Value Reference Range Interpretation Comments Alk Phos (test code = Alk Phos) 69 39-136 [facility]2016-07-18 09:17:00 Test Item Value Reference Range Interpretation Comments AST (test code = AST) 17 See_Comment [Auto mated message] The system which ge nerated this result transmit shaun reference range : <=37. The reference range was not used to interpr et this result as jackeline l/abnormal. [facility]2016-07-18 09:17:00 Test Item Value Reference Range Interpretation Comments Bili Total (test code = Bili Total) 0.6 0.2-1.3 [facility]2016-07-18 09:17:00 Test Item Value Reference Range Interpretation Comments Glucose Lvl (test code = Glucose Lvl) 102 70-99 [facility]2016-07-18 09:17:00 Test Item Value Reference Range Interpretation Comments BUN (test code = BUN) 10 7-22 [facility]2016-07-18 09:17:00 Test Item Value Reference Range Interpretation Comments Creatinine Lvl (test code = Creatinine 0.68 0.50-1.40 Lvl) [facility]2016-07-18 09:17:00 Test Item Value Reference Range Interpretation Comments Chloride Lvl (test code = Chloride Lvl) 107 95-109 [facility]2016-07-18 09:17:00 Test Item Value Reference Range Interpretation Comments Potassium Lvl (test code = Potassium 3.9 3.5-5.1 Lvl) [facility]2016-07-18 09:17:00 Test Item Value Reference Range Interpretation Comments Glucose Lvl (test code = Glucose Lvl) 102 70-99 [place] 523386-07-18 09:17:00 Test Item Value Reference Range Interpretation Comments CO2 (test code = CO2) 29 24-32 [place] 523386-07-18 09:17:00 Test Item Value Reference Range Interpretation Comments Sodium Lvl (test code = Sodium Lvl) 143 135-145 [place] 523386-07-18 09:17:00 Test Item Value Reference Range Interpretation Comments Total Protein (test code = Total 6.5 6.4-8.4 Protein) [place] 523386-07-18 09:17:00 Test Item Value Reference Range Interpretation Comments B/C Ratio (test code = B/C Ratio) 15 6-25 [place] 523386-07-18 09:17:00 Test Item Value Reference Range Interpretation Comments Albumin Lvl (test code = Albumin Lvl) 2.8 3.5-5.0 [place] 523386-07-18 09:17:00 Test Item Value Reference Range Interpretation Comments Calcium Lvl (test code = Calcium Lvl) 8.6 8.5-10.5 [place] 523386-07-18 09:17:00 Test Item Value Reference Range Interpretation Comments AGAP (test code = AGAP) 10.9 10.0-20.0 [facility] PasoMrioxdjSBJYFVRCQA6586-65-08 09:17:00 Test Item Value Reference Range Interpretation Comments Basophils (test code = 0.3 See_Comment [Aut omated message] The Basophils) system which nerated this result tra nsmitted reference range : <=1.0. The reference r lily was not used to int erpret this result as normal/abnormal . [facility] PasoHwviujzSFGBEMAWMR3707-68-13 09:17:00 Test Item Value Reference Range Interpretation Comments Eosinophils (test code = 1.3 See_Comment [A utomated message] The Eosinophils) system which ge nerated this result tra nsmitted reference range : <=4.0. The reference r lily was not used to int erpret this result as normal/abnormal . [place] 101186-07-18 09:17:00 Test Item Value Reference Range Interpretation Comments Monocytes # (test code 0.7 See_Comment [Aut omated message] The = Monocytes #) system which generated this result tra nsmitted reference range : <=0.8. The reference r lily was not used to int erpret this result as normal/abnormal . [facility]2016-07-18 09:17:00 Test Item Value Reference Range Interpretation Comments BUN (test code = BUN) 10 7-22 [facility]XyjbexgMSNAFQHGCE9904-23-42 09:17:00 Test Item Value Reference Range Interpretation Comments Lymphocytes # (test code = Lymphocytes 1.7 1.0-5.5 #) [facility] PasoRjdjrffCFGVPBXXUZ0940-03-91 09:17:00 Test Item Value Reference Range Interpretation Comments Segs-Bands # (test code = Segs-Bands #) 5.8 1.5-8.1 [facility] PasoVzppzmxBCTHCLWUHS9231-93-22 09:17:00 Test Item Value Reference Range Interpretation Comments Lymphocytes (test code = Lymphocytes) 20.7 20.0-40.0 [facility] PasoEthdbaoBVEPGZLQSZ3322-75-11 09:17:00 Test Item Value Reference Range Interpretation Comments Monocytes (test code = Monocytes) 8.4 2.0-12.0 [facility] PasoIkcsayqETBUJVWEQV4245-42-73 09:17:00 Test Item Value Reference Range Interpretation Comments Eosinophils # (test code 0.1 See_Comment [A utomated message] The = Eosinophils #) system whic h generated this result tra nsmitted reference range : <=0.5. The reference r lily was not used to int erpret this result as normal/abnormal . [facility] PasoFfmyjanZISQYBAMDT3018-64-93 09:17:00 Test Item Value Reference Range Interpretation Comments Segs (test code = Segs) 69.3 45.0-75.0 [facility] PasoKvarwxbEUCTBUSZGV3613-20-54 09:17:00 Test Item Value Reference Range Interpretation Comments Hgb (test code = Hgb) 11.7 12.0-16.0 [facility] PasoGmlsbtlRIKZVZQJWJ8375-20-52 09:17:00 Test Item Value Reference Range Interpretation Comments RBC (test code = RBC) 3.81 4.20-5.40 [facility] PasoWfiwylsSWHFKUIRKE4951-51-89 09:17:00 Test Item Value Reference Range Interpretation Comments WBC (test code = WBC) 8.4 3.7-10.4 [facility] PasoZrfgiwoOXELFYEEYC8749-68-32 09:17:00 Test Item Value Reference Range Interpretation Comments MCH (test code = MCH) 30.7 pg 27.0-31.0 [facility]2016-07-18 09:17:00 Test Item Value Reference Range Interpretation Comments Creatinine Lvl (test code = Creatinine 0.68 0.50-1.40 Lvl) [facility] PasoHafdcmwNKYMVNUGCG1119-15-57 09:17:00 Test Item Value Reference Range Interpretation Comments MCV (test code = MCV) 89.3 80.0-98.0 [facility] PasoFcqzxhuRPHAQNBVFG3299-35-18 09:17:00 Test Item Value Reference Range Interpretation Comments Hct (test code = Hct) 34.0 36.0-48.0 [facility] PasoBmqmryaOFITLOODXZ7915-24-11 09:17:00 Test Item Value Reference Range Interpretation Comments Platelet (test code = Platelet) 143 133-450 [facility] PasoIcdllzzFCZDGUIDZV8855-82-91 09:17:00 Test Item Value Reference Range Interpretation Comments RDW (test code = RDW) 13.2 11.5-14.5 [facility] PasoBkzvrbbKWIBIWXEVN7095-60-67 09:17:00 Test Item Value Reference Range Interpretation Comments MCHC (test code = MCHC) 34.4 32.0-36.0 [facility] PasoDgmbhwuPTAAJVPHLY4711-91-74 09:17:00 Test Item Value Reference Range Interpretation Comments MPV (test code = MPV) 10.3 7.4-10.4 [facility]2016-07-18 09:17:00 Test Item Value Reference Range Interpretation Comments Chloride Lvl (test code = Chloride Lvl) 107 95-109 [facility]2016-07-18 09:17:00 Test Item Value Reference Range Interpretation Comments Potassium Lvl (test code = Potassium 3.9 3.5-5.1 Lvl) [facility]2016-07-18 09:17:00 Test Item Value Reference Range Interpretation Comments CO2 (test code = CO2) 29 24-32 [facility]2016-07-18 09:17:00 Test Item Value Reference Range Interpretation Comments Sodium Lvl (test code = Sodium Lvl) 143 135-145 [facility]2016-07-18 09:17:00 Test Item Value Reference Range Interpretation Comments Total Protein (test code = Total 6.5 6.4-8.4 Protein) [facility]2016-07-18 09:17:00 Test Item Value Reference Range Interpretation Comments B/C Ratio (test code = B/C Ratio) 15 6-25 [place] 523386-07-18 09:17:00 Test Item Value Reference Range Interpretation Comments Albumin Lvl (test code = Albumin Lvl) 2.8 3.5-5.0 [place] 523386-07-18 09:17:00 Test Item Value Reference Range Interpretation Comments Calcium Lvl (test code = Calcium Lvl) 8.6 8.5-10.5 [facility]2016-07-18 09:17:00 Test Item Value Reference Range Interpretation Comments AGAP (test code = AGAP) 10.9 10.0-20.0 [facility] PasoQeumdkgQNWDJIVMVM5226-44-90 09:17:00 Test Item Value Reference Range Interpretation Comments Basophils (test code = 0.3 See_Comment [Aut omated message] The Basophils) system which ge nerated this result tra nsmitted reference range : <=1.0. The reference r lily was not used to int erpret this result as normal/abnormal . [facility] PasoTudmqsaAOKDFOBAGE8811-44-46 09:17:00 Test Item Value Reference Range Interpretation Comments Eosinophils (test code = 1.3 See_Comment [A utomated message] The Eosinophils) system which ge nerated this result tra nsmitted reference range : <=4.0. The reference r lily was not used to int erpret this result as normal/abnormal . [facility] PasoBohxeipQBAPECZCLU3744-45-36 09:17:00 Test Item Value Reference Range Interpretation Comments Monocytes # (test code 0.7 See_Comment [Aut omated message] The = Monocytes #) system which generated this result tra nsmitted reference range : <=0.8. The reference r lily was not used to int erpret this result as normal/abnormal . [facility] PasoLcphrywIBVEPANAFD2128-46-06 09:17:00 Test Item Value Reference Range Interpretation Comments Lymphocytes # (test code = Lymphocytes 1.7 1.0-5.5 #) [facility] PasoLlhjcelLAUMOHNAGK4455-89-08 09:17:00 Test Item Value Reference Range Interpretation Comments Segs-Bands # (test code = Segs-Bands #) 5.8 1.5-8.1 [facility] PasoRrxcjdsHXPKZKDXVY3622-97-83 09:17:00 Test Item Value Reference Range Interpretation Comments Lymphocytes (test code = Lymphocytes) 20.7 20.0-40.0 [facility] PasoFbuplulUKXRTVGFBU9165-54-22 09:17:00 Test Item Value Reference Range Interpretation Comments Monocytes (test code = Monocytes) 8.4 2.0-12.0 [facility] PasoZnfxbmzANHTVYOJSX0541-97-67 09:17:00 Test Item Value Reference Range Interpretation Comments Eosinophils # (test code 0.1 See_Comment [A utomated message] The = Eosinophils #) system [employer] generated this result tra nsmitted reference range : <=0.5. The reference r lily was not used to int erpret this result as normal/abnormal . [facility] PasoByexnqmGFPONUZVXR8446-97-80 09:17:00 Test Item Value Reference Range Interpretation Comments Segs (test code = Segs) 69.3 45.0-75.0 [facility] PasoSacopdcKBYWBSDSIL9032-72-84 09:17:00 Test Item Value Reference Range Interpretation Comments Hgb (test code = Hgb) 11.7 12.0-16.0 [facility] PasoXrmqvwbEOIUECTPXF8265-17-11 09:17:00 Test Item Value Reference Range Interpretation Comments RBC (test code = RBC) 3.81 4.20-5.40 [facility] PasoIvyohggTMSHXTYOZO5878-62-77 09:17:00 Test Item Value Reference Range Interpretation Comments WBC (test code = WBC) 8.4 3.7-10.4 [facility] PasoBretesqSXGJZYIZEG9033-74-11 09:17:00 Test Item Value Reference Range Interpretation Comments MCH (test code = MCH) 30.7 pg 27.0-31.0 [facility] PasoHkuqrezRFYXVMHENS2199-03-97 09:17:00 Test Item Value Reference Range Interpretation Comments MCV (test code = MCV) 89.3 80.0-98.0 [facility] PasoPcnizpgKKFASKKYYQ6744-82-09 09:17:00 Test Item Value Reference Range Interpretation Comments Hct (test code = Hct) 34.0 36.0-48.0 [place] 101186-07-18 09:17:00 Test Item Value Reference Range Interpretation Comments Platelet (test code = Platelet) 143 133-450 [facility] PasoKbdaunyKLPEYCCSWZ0999-88-99 09:17:00 Test Item Value Reference Range Interpretation Comments RDW (test code = RDW) 13.2 11.5-14.5 [place] 101186-07-18 09:17:00 Test Item Value Reference Range Interpretation Comments MCHC (test code = MCHC) 34.4 32.0-36.0 [facility] PasoYyqzigwMLHDTYKPPB6879-97-90 09:17:00 Test Item Value Reference Range Interpretation Comments MPV (test code = MPV) 10.3 7.4-10.4 [facility]2016-07-18 09:17:00 Test Item Value Reference Range Interpretation Comments eGFR (test code = eGFR) 94 [facility]2016-07-18 09:17:00 Test Item Value Reference Range Interpretation Comments Globulin (test code = Globulin) 3.7 2.0-4.0 [place] 523386-07-18 09:17:00 Test Item Value Reference Range Interpretation Comments ALT (test code = ALT) 24 See_Comment [Auto mated message] The system which ge nerated this result transmit shaun reference range : <=65. The reference range was not used to interpr et this result as jackeline l/abnormal. [place] 523386-07-18 09:17:00 Test Item Value Reference Range Interpretation Comments A/G Ratio (test code = A/G Ratio) 0.8 0.7-1.6 [facility]2016-07-18 09:17:00 Test Item Value Reference Range Interpretation Comments Alk Phos (test code = Alk Phos) 69 39-136 [facility]2016-07-18 09:17:00 Test Item Value Reference Range Interpretation Comments AST (test code = AST) 17 See_Comment [Auto mated message] The system which ge nerated this result transmit shaun reference range : <=37. The reference range was not used to interpr et this result as jackeline l/abnormal. [place] 523386-07-18 09:17:00 Test Item Value Reference Range Interpretation Comments Bili Total (test code = Bili Total) 0.6 0.2-1.3 [facility]2016-07-18 09:17:00 Test Item Value Reference Range Interpretation Comments Glucose Lvl (test code = Glucose Lvl) 102 70-99 [facility]2016-07-18 09:17:00 Test Item Value Reference Range Interpretation Comments BUN (test code = BUN) 10 7-22 [facility]2016-07-18 09:17:00 Test Item Value Reference Range Interpretation Comments Creatinine Lvl (test code = Creatinine 0.68 0.50-1.40 Lvl) [facility]2016-07-18 09:17:00 Test Item Value Reference Range Interpretation Comments Chloride Lvl (test code = Chloride Lvl) 107 95-109 [facility]2016-07-18 09:17:00 Test Item Value Reference Range Interpretation Comments Potassium Lvl (test code = Potassium 3.9 3.5-5.1 Lvl) [facility]2016-07-18 09:17:00 Test Item Value Reference Range Interpretation Comments CO2 (test code = CO2) 29 24-32 [facility]2016-07-18 09:17:00 Test Item Value Reference Range Interpretation Comments Sodium Lvl (test code = Sodium Lvl) 143 135-145 [facility]2016-07-18 09:17:00 Test Item Value Reference Range Interpretation Comments Total Protein (test code = Total 6.5 6.4-8.4 Protein) [facility]2016-07-18 09:17:00 Test Item Value Reference Range Interpretation Comments B/C Ratio (test code = B/C Ratio) 15 6-25 [facility]2016-07-18 09:17:00 Test Item Value Reference Range Interpretation Comments Albumin Lvl (test code = Albumin Lvl) 2.8 3.5-5.0 [facility]2016-07-18 09:17:00 Test Item Value Reference Range Interpretation Comments Calcium Lvl (test code = Calcium Lvl) 8.6 8.5-10.5 [facility]2016-07-18 09:17:00 Test Item Value Reference Range Interpretation Comments AGAP (test code = AGAP) 10.9 10.0-20.0 [facility] PasoCfirmvtTKVEPBCZIO8177-37-82 09:17:00 Test Item Value Reference Range Interpretation Comments Basophils (test code = 0.3 See_Comment [Aut omated message] The Basophils) system which ge nerated this result tra nsmitted reference range : <=1.0. The reference r lily was not used to int erpret this result as normal/abnormal . [facility] PasoCtnrmazUQJALOOUKA1605-59-35 09:17:00 Test Item Value Reference Range Interpretation Comments Eosinophils (test code = 1.3 See_Comment [A utomated message] The Eosinophils) system which ge nerated this result tra nsmitted reference range : <=4.0. The reference r lily was not used to int erpret this result as normal/abnormal . [facility] PasoEqzrdfwQSPRURYRBG1788-70-03 09:17:00 Test Item Value Reference Range Interpretation Comments Monocytes # (test code 0.7 See_Comment [Aut omated message] The = Monocytes #) system which generated this result tra nsmitted reference range : <=0.8. The reference r lily was not used to int erpret this result as normal/abnormal . [facility] PasoMolqmgiSSKLQNYLAI8957-35-53 09:17:00 Test Item Value Reference Range Interpretation Comments Lymphocytes # (test code = Lymphocytes 1.7 1.0-5.5 #) [facility] PasoLxstdayKNQWFYZIUY9121-32-30 09:17:00 Test Item Value Reference Range Interpretation Comments Segs-Bands # (test code = Segs-Bands #) 5.8 1.5-8.1 [facility] PasoCrbyuihQYKECEEASQ1841-72-63 09:17:00 Test Item Value Reference Range Interpretation Comments Lymphocytes (test code = Lymphocytes) 20.7 20.0-40.0 [facility] PasoEqziuroQDNOBGVWCV1757-44-54 09:17:00 Test Item Value Reference Range Interpretation Comments Monocytes (test code = Monocytes) 8.4 2.0-12.0 [facility] PasoKsscjlfUEIOLTSGCW7338-55-23 09:17:00 Test Item Value Reference Range Interpretation Comments Eosinophils # (test code 0.1 See_Comment [A utomated message] The = Eosinophils #) system [facility] generated this result tra nsmitted reference range : <=0.5. The reference r lily was not used to int erpret this result as normal/abnormal . [facility] PasoOlrlhhtZVUTKYBMWI0105-95-13 09:17:00 Test Item Value Reference Range Interpretation Comments Segs (test code = Segs) 69.3 45.0-75.0 [facility] PasoEigjjerYEWWHNQPKX5276-06-87 09:17:00 Test Item Value Reference Range Interpretation Comments Hgb (test code = Hgb) 11.7 12.0-16.0 [facility] PasoPkrhibmTHSIWYCAFH6669-20-15 09:17:00 Test Item Value Reference Range Interpretation Comments RBC (test code = RBC) 3.81 4.20-5.40 [facility] PasoWezgevoEQUCDJVECG6117-27-27 09:17:00 Test Item Value Reference Range Interpretation Comments WBC (test code = WBC) 8.4 3.7-10.4 [facility] PasoDpywekmVCLCLXRXWH9591-62-36 09:17:00 Test Item Value Reference Range Interpretation Comments MCH (test code = MCH) 30.7 pg 27.0-31.0 [facility] PasoIlvarfmUHXMUZYFVS9984-41-64 09:17:00 Test Item Value Reference Range Interpretation Comments MCV (test code = MCV) 89.3 80.0-98.0 [facility] PasoLokfdkxKIZEDONLQF0577-14-35 09:17:00 Test Item Value Reference Range Interpretation Comments Hct (test code = Hct) 34.0 36.0-48.0 [facility] PasoIvxsrfrHBVOPOKJGF0800-42-31 09:17:00 Test Item Value Reference Range Interpretation Comments Platelet (test code = Platelet) 143 133-450 [facility] PasoTigsqsvFUFUATRTFC2363-25-59 09:17:00 Test Item Value Reference Range Interpretation Comments RDW (test code = RDW) 13.2 11.5-14.5 [facility] PasoQfvyudxBRCDGZYWZY7644-99-37 09:17:00 Test Item Value Reference Range Interpretation Comments MCHC (test code = MCHC) 34.4 32.0-36.0 [facility] PasoVarkxkpHTMNABXLIU6697-54-17 09:17:00 Test Item Value Reference Range Interpretation Comments MPV (test code = MPV) 10.3 7.4-10.4 [facility]2016-07-18 09:17:00 Test Item Value Reference Range Interpretation Comments eGFR (test code = eGFR) 94 [facility] NNYRQ2694-32-26 09:17:00 Test Item Value Reference Range Interpretation Comments Globulin (test code = Globulin) 3.7 2.0-4.0 [place] 523386-07-18 09:17:00 Test Item Value Reference Range Interpretation Comments ALT (test code = ALT) 24 See_Comment [Auto mated message] The system which ge nerated this result transmit shaun reference range : <=65. The reference range was not used to interpr et this result as jackeline l/abnormal. [place] 523386-07-18 09:17:00 Test Item Value Reference Range Interpretation Comments A/G Ratio (test code = A/G Ratio) 0.8 0.7-1.6 [place] 523386-07-18 09:17:00 Test Item Value Reference Range Interpretation Comments Alk Phos (test code = Alk Phos) 69 39-136 [place] 523386-07-18 09:17:00 Test Item Value Reference Range Interpretation Comments AST (test code = AST) 17 See_Comment [Auto mated message] The system which ge nerated this result transmit shaun reference range : <=37. The reference range was not used to interpr et this result as jackeline l/abnormal. [place] 523386-07-18 09:17:00 Test Item Value Reference Range Interpretation Comments Bili Total (test code = Bili Total) 0.6 0.2-1.3 [place] 523386-07-18 09:17:00 Test Item Value Reference Range Interpretation Comments Glucose Lvl (test code = Glucose Lvl) 102 70-99 [facility]2016-07-18 09:17:00 Test Item Value Reference Range Interpretation Comments BUN (test code = BUN) 10 7-22 [facility]2016-07-18 09:17:00 Test Item Value Reference Range Interpretation Comments Creatinine Lvl (test code = Creatinine 0.68 0.50-1.40 Lvl) [place] 523386-07-18 09:17:00 Test Item Value Reference Range Interpretation Comments Chloride Lvl (test code = Chloride Lvl) 107 95-109 [place] 523386-07-18 09:17:00 Test Item Value Reference Range Interpretation Comments Potassium Lvl (test code = Potassium 3.9 3.5-5.1 Lvl) [place] 523386-07-18 09:17:00 Test Item Value Reference Range Interpretation Comments CO2 (test code = CO2) 29 24-32 [facility]2016-07-18 09:17:00 Test Item Value Reference Range Interpretation Comments Sodium Lvl (test code = Sodium Lvl) 143 135-145 [facility]2016-07-18 09:17:00 Test Item Value Reference Range Interpretation Comments Total Protein (test code = Total 6.5 6.4-8.4 Protein) [facility]2016-07-18 09:17:00 Test Item Value Reference Range Interpretation Comments B/C Ratio (test code = B/C Ratio) 15 6-25 [place] 523386-07-18 09:17:00 Test Item Value Reference Range Interpretation Comments Albumin Lvl (test code = Albumin Lvl) 2.8 3.5-5.0 [place] 523386-07-18 09:17:00 Test Item Value Reference Range Interpretation Comments Calcium Lvl (test code = Calcium Lvl) 8.6 8.5-10.5 [place] 523386-07-18 09:17:00 Test Item Value Reference Range Interpretation Comments AGAP (test code = AGAP) 10.9 10.0-20.0 [facility] PasoXuddqhbETWJIOQKNH3824-76-20 09:17:00 Test Item Value Reference Range Interpretation Comments Basophils (test code = 0.3 See_Comment [Aut omated message] The Basophils) system which ge nerated this result tra nsmitted reference range : <=1.0. The reference r lily was not used to int erpret this result as normal/abnormal . [facility] PasoDpmhzjiXALHPZDCZV1438-20-48 09:17:00 Test Item Value Reference Range Interpretation Comments Eosinophils (test code = 1.3 See_Comment [A utomated message] The Eosinophils) system which ge nerated this result tra nsmitted reference range : <=4.0. The reference r lily was not used to int erpret this result as normal/abnormal . [facility] PasoFtdrrvkEACKIDNSTT7316-87-27 09:17:00 Test Item Value Reference Range Interpretation Comments Monocytes # (test code 0.7 See_Comment [Aut omated message] The = Monocytes #) system which generated this result tra nsmitted reference range : <=0.8. The reference r lily was not used to int erpret this result as normal/abnormal . [facility] PasoQokotidIQPTTUKGHT0734-05-39 09:17:00 Test Item Value Reference Range Interpretation Comments Lymphocytes # (test code = Lymphocytes 1.7 1.0-5.5 #) [facility] PasoWkuhioeMWBNCNVVLY4484-24-90 09:17:00 Test Item Value Reference Range Interpretation Comments Segs-Bands # (test code = Segs-Bands #) 5.8 1.5-8.1 [facility] PasoWrcfgupSFXXEQYXLS7276-67-51 09:17:00 Test Item Value Reference Range Interpretation Comments Lymphocytes (test code = Lymphocytes) 20.7 20.0-40.0 [facility] PasoMvtivbbOJNGEFMKEK6155-13-36 09:17:00 Test Item Value Reference Range Interpretation Comments Monocytes (test code = Monocytes) 8.4 2.0-12.0 [facility] PasoCwmmswlYLHAVIRTQS1571-11-54 09:17:00 Test Item Value Reference Range Interpretation Comments Eosinophils # (test code 0.1 See_Comment [A utomated message] The = Eosinophils #) system [employer] generated this result tra nsmitted reference range : <=0.5. The reference r lily was not used to int erpret this result as normal/abnormal . [facility] PasoFrlbjssOZFUFUJCCN8368-63-25 09:17:00 Test Item Value Reference Range Interpretation Comments Segs (test code = Segs) 69.3 45.0-75.0 [place] 101186-07-18 09:17:00 Test Item Value Reference Range Interpretation Comments Hgb (test code = Hgb) 11.7 12.0-16.0 [facility] PasoXgeglnbZMZIZRKKGH3237-19-84 09:17:00 Test Item Value Reference Range Interpretation Comments RBC (test code = RBC) 3.81 4.20-5.40 [facility] PasoQskzmxjZMRBRSMQJV2244-11-96 09:17:00 Test Item Value Reference Range Interpretation Comments WBC (test code = WBC) 8.4 3.7-10.4 [facility] PasoXitgowbGTJDSODIQC4740-25-86 09:17:00 Test Item Value Reference Range Interpretation Comments MCH (test code = MCH) 30.7 pg 27.0-31.0 [facility] PasoWbmvtcoLTOSWTOITC5646-33-70 09:17:00 Test Item Value Reference Range Interpretation Comments MCV (test code = MCV) 89.3 80.0-98.0 [facility] PasoMlijjkjLTDAWBBPXH3985-86-19 09:17:00 Test Item Value Reference Range Interpretation Comments Hct (test code = Hct) 34.0 36.0-48.0 [facility] PasoGezbewwRGKARNPFDI4832-20-46 09:17:00 Test Item Value Reference Range Interpretation Comments Platelet (test code = Platelet) 143 133-450 [facility] PasoOcszuofSFGSQCMTCW1173-21-13 09:17:00 Test Item Value Reference Range Interpretation Comments RDW (test code = RDW) 13.2 11.5-14.5 [place] 101186-07-18 09:17:00 Test Item Value Reference Range Interpretation Comments MCHC (test code = MCHC) 34.4 32.0-36.0 [place] [address]-07-18 09:17:00 Test Item Value Reference Range Interpretation Comments MPV (test code = MPV) 10.3 7.4-10.4 [place] 523386-07-18 09:17:00 Test Item Value Reference Range Interpretation Comments eGFR (test code = eGFR) 94 [facility]2016-07-18 09:17:00 Test Item Value Reference Range Interpretation Comments Globulin (test code = Globulin) 3.7 2.0-4.0 [place] 523386-07-18 09:17:00 Test Item Value Reference Range Interpretation Comments ALT (test code = ALT) 24 See_Comment [Auto mated message] The system which ge nerated this result transmit shaun reference range : <=65. The reference range was not used to interpr et this result as jackeline l/abnormal. [facility]2016-07-18 09:17:00 Test Item Value Reference Range Interpretation Comments A/G Ratio (test code = A/G Ratio) 0.8 0.7-1.6 [place] 523386-07-18 09:17:00 Test Item Value Reference Range Interpretation Comments Alk Phos (test code = Alk Phos) 69 39-136 [place] 523386-07-18 09:17:00 Test Item Value Reference Range Interpretation Comments AST (test code = AST) 17 See_Comment [Auto mated message] The system which ge nerated this result transmit shaun reference range : <=37. The reference range was not used to interpr et this result as jackeline l/abnormal. [facility]2016-07-18 09:17:00 Test Item Value Reference Range Interpretation Comments Bili Total (test code = Bili Total) 0.6 0.2-1.3 [facility]2016-07-18 09:17:00 Test Item Value Reference Range Interpretation Comments Glucose Lvl (test code = Glucose Lvl) 102 70-99 [facility]2016-07-18 09:17:00 Test Item Value Reference Range Interpretation Comments BUN (test code = BUN) 10 7-22 [facility]2016-07-18 09:17:00 Test Item Value Reference Range Interpretation Comments Creatinine Lvl (test code = Creatinine 0.68 0.50-1.40 Lvl) [facility]2016-07-18 09:17:00 Test Item Value Reference Range Interpretation Comments Chloride Lvl (test code = Chloride Lvl) 107 95-109 [facility]2016-07-18 09:17:00 Test Item Value Reference Range Interpretation Comments Potassium Lvl (test code = Potassium 3.9 3.5-5.1 Lvl) [facility]2016-07-18 09:17:00 Test Item Value Reference Range Interpretation Comments CO2 (test code = CO2) 29 24-32 [facility]2016-07-18 09:17:00 Test Item Value Reference Range Interpretation Comments Sodium Lvl (test code = Sodium Lvl) 143 135-145 [facility]2016-07-18 09:17:00 Test Item Value Reference Range Interpretation Comments Total Protein (test code = Total 6.5 6.4-8.4 Protein) [facility]2016-07-18 09:17:00 Test Item Value Reference Range Interpretation Comments B/C Ratio (test code = B/C Ratio) 15 6-25 [facility]2016-07-18 09:17:00 Test Item Value Reference Range Interpretation Comments Albumin Lvl (test code = Albumin Lvl) 2.8 3.5-5.0 [facility]2016-07-18 09:17:00 Test Item Value Reference Range Interpretation Comments Calcium Lvl (test code = Calcium Lvl) 8.6 8.5-10.5 [place] 523386-07-18 09:17:00 Test Item Value Reference Range Interpretation Comments AGAP (test code = AGAP) 10.9 10.0-20.0 [id number] 09:17:00 Test Item Value Reference Range Interpretation Comments Basophils (test code = 0.3 See_Comment [Aut omated message] The Basophils) system which ge nerated this result tra nsmitted reference range : <=1.0. The reference r lily was not used to int erpret this result as normal/abnormal . [facility] PasoPsbwltvJTUDDDVDZT0227-75-38 09:17:00 Test Item Value Reference Range Interpretation Comments Eosinophils (test code = 1.3 See_Comment [A utomated message] The Eosinophils) system which ge nerated this result tra nsmitted reference range : <=4.0. The reference r lily was not used to int erpret this result as normal/abnormal . [facility] PasoBvmgsduTBJEJUBVHA2164-77-56 09:17:00 Test Item Value Reference Range Interpretation Comments Monocytes # (test code 0.7 See_Comment [Aut omated message] The = Monocytes #) system which generated this result tra nsmitted reference range : <=0.8. The reference r lily was not used to int erpret this result as normal/abnormal . [facility] PasoOytuqpuNTYQTPZCJQ3028-28-98 09:17:00 Test Item Value Reference Range Interpretation Comments Lymphocytes # (test code = Lymphocytes 1.7 1.0-5.5 #) [facility] PasoDhyaomnQYDNPJYXPL1020-56-15 09:17:00 Test Item Value Reference Range Interpretation Comments Segs-Bands # (test code = Segs-Bands #) 5.8 1.5-8.1 [facility] PasoXyvjqamLYSHAEYQDF1263-98-73 09:17:00 Test Item Value Reference Range Interpretation Comments Lymphocytes (test code = Lymphocytes) 20.7 20.0-40.0 [facility] PasoVulzqreLHGHZZHOBK5796-49-50 09:17:00 Test Item Value Reference Range Interpretation Comments Monocytes (test code = Monocytes) 8.4 2.0-12.0 [facility] PasoNyzhkgrRRWKMYXVJO5079-75-64 09:17:00 Test Item Value Reference Range Interpretation Comments Eosinophils # (test code 0.1 See_Comment [A utomated message] The = Eosinophils #) system whic h generated this result tra nsmitted reference range : <=0.5. The reference r lily was not used to int erpret this result as normal/abnormal . [facility] PasoNhxlgzpQMRTNVORPX6417-24-16 09:17:00 Test Item Value Reference Range Interpretation Comments Segs (test code = Segs) 69.3 45.0-75.0 [facility] PasoIxntrulCLMDQSMDUF8170-18-32 09:17:00 Test Item Value Reference Range Interpretation Comments Hgb (test code = Hgb) 11.7 12.0-16.0 [facility] PasoYfqcuzhHWTLDQOBBP5260-60-51 09:17:00 Test Item Value Reference Range Interpretation Comments RBC (test code = RBC) 3.81 4.20-5.40 [facility] PasoJbrxloiMOBQSFBHLD5765-15-35 09:17:00 Test Item Value Reference Range Interpretation Comments WBC (test code = WBC) 8.4 3.7-10.4 [facility] PasoMixhmlqVZGCCWDTYD2756-13-33 09:17:00 Test Item Value Reference Range Interpretation Comments MCH (test code = MCH) 30.7 pg 27.0-31.0 [facility] PasoYcfcgjrLJDXWRZCLA4014-62-90 09:17:00 Test Item Value Reference Range Interpretation Comments MCV (test code = MCV) 89.3 80.0-98.0 [facility] PasoAkcqfmkISSSBTHRLJ6099-35-20 09:17:00 Test Item Value Reference Range Interpretation Comments Hct (test code = Hct) 34.0 36.0-48.0 [facility] PasoDwrnqjsVFSXEJEIVS6446-80-12 09:17:00 Test Item Value Reference Range Interpretation Comments Platelet (test code = Platelet) 143 133-450 [facility] PasoXyqtushOWKZWUMKAG7649-08-48 09:17:00 Test Item Value Reference Range Interpretation Comments RDW (test code = RDW) 13.2 11.5-14.5 [facility] PasoNzqzxudMMLCORAJCT1135-99-02 09:17:00 Test Item Value Reference Range Interpretation Comments MCHC (test code = MCHC) 34.4 32.0-36.0 [facility] PasoTbbllybWRAWPKKJCO0258-10-53 09:17:00 Test Item Value Reference Range Interpretation Comments MPV (test code = MPV) 10.3 7.4-10.4 [facility]2016-07-18 09:17:00 Test Item Value Reference Range Interpretation Comments eGFR (test code = eGFR) 94 [facility]2016-07-18 09:17:00 Test Item Value Reference Range Interpretation Comments Globulin (test code = Globulin) 3.7 2.0-4.0 [place] 523386-07-18 09:17:00 Test Item Value Reference Range Interpretation Comments ALT (test code = ALT) 24 See_Comment [Auto mated message] The system which ge nerated this result transmit shaun reference range : <=65. The reference range was not used to interpr et this result as jackeline l/abnormal. [place] 523386-07-18 09:17:00 Test Item Value Reference Range Interpretation Comments A/G Ratio (test code = A/G Ratio) 0.8 0.7-1.6 [place] 523386-07-18 09:17:00 Test Item Value Reference Range Interpretation Comments Alk Phos (test code = Alk Phos) 69 39-136 [facility]2016-07-18 09:17:00 Test Item Value Reference Range Interpretation Comments AST (test code = AST) 17 See_Comment [Auto mated message] The system which ge nerated this result transmit shaun reference range : <=37. The reference range was not used to interpr et this result as jackeline l/abnormal. [facility]2016-07-18 09:17:00 Test Item Value Reference Range Interpretation Comments Bili Total (test code = Bili Total) 0.6 0.2-1.3 [place] 523386-07-18 09:17:00 Test Item Value Reference Range Interpretation Comments Glucose Lvl (test code = Glucose Lvl) 102 70-99 [place] 523386-07-18 09:17:00 Test Item Value Reference Range Interpretation Comments BUN (test code = BUN) 10 7-22 [place] 523386-07-18 09:17:00 Test Item Value Reference Range Interpretation Comments Creatinine Lvl (test code = Creatinine 0.68 0.50-1.40 Lvl) [place] 523386-07-18 09:17:00 Test Item Value Reference Range Interpretation Comments Chloride Lvl (test code = Chloride Lvl) 107 95-109 [place] 523386-07-18 09:17:00 Test Item Value Reference Range Interpretation Comments Potassium Lvl (test code = Potassium 3.9 3.5-5.1 Lvl) [place] 523386-07-18 09:17:00 Test Item Value Reference Range Interpretation Comments CO2 (test code = CO2) 29 24-32 [place] 523386-07-18 09:17:00 Test Item Value Reference Range Interpretation Comments Sodium Lvl (test code = Sodium Lvl) 143 135-145 [place] 523386-07-18 09:17:00 Test Item Value Reference Range Interpretation Comments Total Protein (test code = Total 6.5 6.4-8.4 Protein) [place] 523386-07-18 09:17:00 Test Item Value Reference Range Interpretation Comments B/C Ratio (test code = B/C Ratio) 15 6-25 [place] [address]-07-18 09:17:00 Test Item Value Reference Range Interpretation Comments Albumin Lvl (test code = Albumin Lvl) 2.8 3.5-5.0 [place] 523386-07-18 09:17:00 Test Item Value Reference Range Interpretation Comments Calcium Lvl (test code = Calcium Lvl) 8.6 8.5-10.5 [place] 523386-07-18 09:17:00 Test Item Value Reference Range Interpretation Comments AGAP (test code = AGAP) 10.9 10.0-20.0 [facility] PasoJutslzzNDZYFEMVTA6170-52-09 09:17:00 Test Item Value Reference Range Interpretation Comments Basophils (test code = 0.3 See_Comment [Aut omated message] The Basophils) system which nerated this result tra nsmitted reference range : <=1.0. The reference r lily was not used to int erpret this result as normal/abnormal . [facility] PasoRsuqnmjIOIGMQWDPT8428-01-27 09:17:00 Test Item Value Reference Range Interpretation Comments Eosinophils (test code = 1.3 See_Comment [A utomated message] The Eosinophils) system which ge nerated this result tra nsmitted reference range : <=4.0. The reference r lily was not used to int erpret this result as normal/abnormal . [place] 101186-07-18 09:17:00 Test Item Value Reference Range Interpretation Comments Monocytes # (test code 0.7 See_Comment [Aut omated message] The = Monocytes #) system which generated this result tra nsmitted reference range : <=0.8. The reference r lily was not used to int erpret this result as normal/abnormal . [facility] PasoEpfzdwhOZGQSEHFRU4898-52-59 09:17:00 Test Item Value Reference Range Interpretation Comments Lymphocytes # (test code = Lymphocytes 1.7 1.0-5.5 #) [facility] PasoKoieqwdIOVALUJHIJ9350-77-10 09:17:00 Test Item Value Reference Range Interpretation Comments Segs-Bands # (test code = Segs-Bands #) 5.8 1.5-8.1 [facility] PasoUrdtemuGRCIJBBDIK6785-57-36 09:17:00 Test Item Value Reference Range Interpretation Comments Lymphocytes (test code = Lymphocytes) 20.7 20.0-40.0 [facility] PasoHqwjyhwQNQOSWNWVI8479-54-89 09:17:00 Test Item Value Reference Range Interpretation Comments Monocytes (test code = Monocytes) 8.4 2.0-12.0 [facility] PasoZmqnvfbADVRYVDVWW8095-28-10 09:17:00 Test Item Value Reference Range Interpretation Comments Eosinophils # (test code 0.1 See_Comment [A utomated message] The = Eosinophils #) system whic h generated this result tra nsmitted reference range : <=0.5. The reference r lily was not used to int erpret this result as normal/abnormal . [facility] PasoSwgzwmfEYOIAZYJZR7829-76-91 09:17:00 Test Item Value Reference Range Interpretation Comments Segs (test code = Segs) 69.3 45.0-75.0 [facility] PasoHiiewntMHMSBUJAHR7419-19-23 09:17:00 Test Item Value Reference Range Interpretation Comments Hgb (test code = Hgb) 11.7 12.0-16.0 [facility] PasoJhdrlpvCTEELEEJKA4223-04-92 09:17:00 Test Item Value Reference Range Interpretation Comments RBC (test code = RBC) 3.81 4.20-5.40 [facility] PasoKiskjmxITNKTCOQTJ1684-73-16 09:17:00 Test Item Value Reference Range Interpretation Comments WBC (test code = WBC) 8.4 3.7-10.4 [facility] PasoRakmdpfPPRZHNUGAD0172-53-25 09:17:00 Test Item Value Reference Range Interpretation Comments MCH (test code = MCH) 30.7 pg 27.0-31.0 [facility] PasoAaxyoldCTDVSFKKZY3648-97-61 09:17:00 Test Item Value Reference Range Interpretation Comments MCV (test code = MCV) 89.3 80.0-98.0 [facility] PasoBfezxpmPANTZTOMVB5526-45-43 09:17:00 Test Item Value Reference Range Interpretation Comments Hct (test code = Hct) 34.0 36.0-48.0 [facility] PasoVnpskcmDIELQOMUCP5494-24-58 09:17:00 Test Item Value Reference Range Interpretation Comments Platelet (test code = Platelet) 143 133-450 [facility] PasoKytqfqnJNTYKLTQOM0627-88-73 09:17:00 Test Item Value Reference Range Interpretation Comments RDW (test code = RDW) 13.2 11.5-14.5 [facility] PasoSkhqewhZQTPUWMPWT3073-26-56 09:17:00 Test Item Value Reference Range Interpretation Comments MCHC (test code = MCHC) 34.4 32.0-36.0 [facility] PasoWawrsilPYIPKIFSDJ4132-17-87 09:17:00 Test Item Value Reference Range Interpretation Comments MPV (test code = MPV) 10.3 7.4-10.4 [facility] AND [id number] 18:47:00 Test Item Value Reference Range Interpretation Comments UA Urobilinogen (test code = UA <=1.0 mg/dL 0.1-1.0 Urobilinogen) [facility] AND [id number] 18:47:00 Test Item Value Reference Range Interpretation Comments UA Sq Epi (test code = UA Sq Epi) None Seen [facility] AND [id number] 18:47:00 Test Item Value Reference Range Interpretation Comments UA Ketones (test code = UA Negative mg/dL Ketones) [facility] AND [id number] 18:47:00 Test Item Value Reference Range Interpretation Comments UA Protein (test code = UA Negative mg/dL Protein) [facility] AND [id number] 18:47:00 Test Item Value Reference Range Interpretation Comments UA Spec Grav (test code = UA Spec Grav) 1.013 [facility] AND [id number] 18:47:00 Test Item Value Reference Range Interpretation Comments UA Turbidity (test code = Clear (10/14/15 1:47 UA Turbidity) PM) [facility] [id number] 18:47:00 Test Item Value Reference Range Interpretation Comments UA Glucose (test code = UA Negative mg/dL Glucose) [facility] AND [id number] 18:47:00 Test Item Value Reference Range Interpretation Comments UA pH (test code = UA pH) 6.0 5.0-8.0 [facility] AND [id number] 18:47:00 Test Item Value Reference Range Interpretation Comments UA Color (test code = Yellow *NA*(10/14/15 UA Color) 1:47 PM) [facility] AND [id number] 18:47:00 Test Item Value Reference Range Interpretation Comments UA Hyal Cast (test 8 See_Comment [Automat ed message] The code = UA Hyal Cast) system which generated this result transmit shaun reference range : <=2. The reference range was not used to interpr et this result as jackeline l/abnormal. [facility] AND [id number] 18:47:00 Test Item Value Reference Range Interpretation Comments UA Mucus (test code = UA Mucus) Few /LPF [facility] AND [id number] 18:47:00 Test Item Value Reference Range Interpretation Comments UA RBC (test code = no gt See_Comment [Automa shaun message] The UA RBC) system which ge nerated this result transmit shaun reference range : <=2. The reference range was not used to interpr et this result as jackeline l/abnormal. [facility] [id number] 18:47:00 Test Item Value Reference Range Interpretation Comments UA WBC (test code = 1 See_Comment [Automa shaun message] The UA WBC) system which ge nerated this result transmit shaun reference range : <=5. The reference range was not used to interpr et this result as jackeline l/abnormal. [facility] [id number] 18:47:00 Test Item Value Reference Range Interpretation Comments UA Nitrite (test code Negative (10/14/15 1:47 = UA Nitrite) PM) [facility] AND [id number] 18:47:00 Test Item Value Reference Range Interpretation Comments UA Bili (test code = Negative *NA*(7/17/16 UA Bili) 1:47 PM) [facility] AND [id number] 18:47:00 Test Item Value Reference Range Interpretation Comments UA Leuk Est (test Negative (10/14/15 1:47 code = UA Leuk Est) PM) [facility] AND [id number] 18:47:00 Test Item Value Reference Range Interpretation Comments UA Blood (test code = Negative (10/14/15 1:47 UA Blood) PM) [facility] AND [id number] 18:47:00 Test Item Value Reference Range Interpretation Comments UA Urobilinogen (test code = UA <=1.0 mg/dL 0.1-1.0 Urobilinogen) [facility] AND [id number] 18:47:00 Test Item Value Reference Range Interpretation Comments UA Sq Epi (test code = UA Sq Epi) None Seen [facility] AND [id number] 18:47:00 Test Item Value Reference Range Interpretation Comments UA Ketones (test code = UA Negative mg/dL Ketones) [facility] AND [id number] 18:47:00 Test Item Value Reference Range Interpretation Comments UA Protein (test code = UA Negative mg/dL Protein) [facility] AND [id number] 18:47:00 Test Item Value Reference Range Interpretation Comments UA Spec Grav (test code = UA Spec Grav) 1.013 [facility] AND [id number] 18:47:00 Test Item Value Reference Range Interpretation Comments UA Turbidity (test code = Clear (10/14/15 1:47 UA Turbidity) PM) [facility] AND [id number] 18:47:00 Test Item Value Reference Range Interpretation Comments UA Glucose (test code = UA Negative mg/dL Glucose) [facility] AND [id number] 18:47:00 Test Item Value Reference Range Interpretation Comments UA pH (test code = UA pH) 6.0 5.0-8.0 [facility] AND [id number] 18:47:00 Test Item Value Reference Range Interpretation Comments UA Color (test code = Yellow *NA*(10/14/15 UA Color) 1:47 PM) [facility] AND [id number] 18:47:00 Test Item Value Reference Range Interpretation Comments UA Hyal Cast (test 8 See_Comment [Automat ed message] The code = UA Hyal Cast) system which generated this result transmit shaun reference range : <=2. The reference range was not used to interpr et this result as jackeline l/abnormal. [facility] AND [id number] 18:47:00 Test Item Value Reference Range Interpretation Comments UA Mucus (test code = UA Mucus) Few /LPF [facility] AND [id number] 18:47:00 Test Item Value Reference Range Interpretation Comments UA RBC (test code = no gt See_Comment [Automa shaun message] The UA RBC) system which ge nerated this result transmit shaun reference range : <=2. The reference range was not used to interpr et this result as jackeline l/abnormal. [facility] AND [id number] 18:47:00 Test Item Value Reference Range Interpretation Comments UA WBC (test code = 1 See_Comment [Automa shaun message] The UA WBC) system which ge nerated this result transmit shaun reference range : <=5. The reference range was not used to interpr et this result as jackeline l/abnormal. [facility] AND [id number] 18:47:00 Test Item Value Reference Range Interpretation Comments UA Nitrite (test code Negative (10/14/15 1:47 = UA Nitrite) PM) [facility] AND [id number] 18:47:00 Test Item Value Reference Range Interpretation Comments UA Bili (test code = Negative *NA*(10/14/15 UA Bili) 1:47 PM) [facility] AND [id number] 18:47:00 Test Item Value Reference Range Interpretation Comments UA Leuk Est (test Negative (10/14/15 1:47 code = UA Leuk Est) PM) [facility] AND [id number] 18:47:00 Test Item Value Reference Range Interpretation Comments UA Blood (test code = Negative (10/14/15 1:47 UA Blood) PM) [facility] AND [id number] 18:47:00 Test Item Value Reference Range Interpretation Comments UA Urobilinogen (test code = UA <=1.0 mg/dL 0.1-1.0 Urobilinogen) [facility] AND [id number] 18:47:00 Test Item Value Reference Range Interpretation Comments UA Sq Epi (test code = UA Sq Epi) None Seen [facility] AND [id number] 18:47:00 Test Item Value Reference Range Interpretation Comments UA Ketones (test code = UA Negative mg/dL Ketones) [facility] AND [id number] 18:47:00 Test Item Value Reference Range Interpretation Comments UA Protein (test code = UA Negative mg/dL Protein) [facility] AND [id number] 18:47:00 Test Item Value Reference Range Interpretation Comments UA Spec Grav (test code = UA Spec Grav) 1.013 [facility] AND [id number] 18:47:00 Test Item Value Reference Range Interpretation Comments UA Turbidity (test code = Clear (10/14/15 1:47 UA Turbidity) PM) [facility] AND [id number] 18:47:00 Test Item Value Reference Range Interpretation Comments UA Glucose (test code = UA Negative mg/dL Glucose) [facility] AND [id number] 18:47:00 Test Item Value Reference Range Interpretation Comments UA pH (test code = UA pH) 6.0 5.0-8.0 [facility] AND [id number] 18:47:00 Test Item Value Reference Range Interpretation Comments UA Color (test code = Yellow *NA*(10/14/15 UA Color) 1:47 PM) [facility] AND [id number] 18:47:00 Test Item Value Reference Range Interpretation Comments UA Hyal Cast (test 8 See_Comment [Automat ed message] The code = UA Hyal Cast) system which generated this result transmit shaun reference range : <=2. The reference range was not used to interpr et this result as jackeline l/abnormal. [facility] AND [id number] 18:47:00 Test Item Value Reference Range Interpretation Comments UA Mucus (test code = UA Mucus) Few /LPF [facility] AND [id number] 18:47:00 Test Item Value Reference Range Interpretation Comments UA RBC (test code = no gt See_Comment [Automa shaun message] The UA RBC) system which ge nerated this result transmit shaun reference range : <=2. The reference range was not used to interpr et this result as jackeline l/abnormal. [facility] AND [id number] 18:47:00 Test Item Value Reference Range Interpretation Comments UA WBC (test code = 1 See_Comment [Automa shaun message] The UA WBC) system which ge nerated this result transmit shaun reference range : <=5. The reference range was not used to interpr et this result as jackeline l/abnormal. [facility] AND [id number] 18:47:00 Test Item Value Reference Range Interpretation Comments UA Nitrite (test code Negative (10/14/15 1:47 = UA Nitrite) PM) [facility] AND [id number] 18:47:00 Test Item Value Reference Range Interpretation Comments UA Bili (test code = Negative *NA*(10/14/15 UA Bili) 1:47 PM) [facility] AND [id number] 18:47:00 Test Item Value Reference Range Interpretation Comments UA Leuk Est (test Negative (10/14/15 1:47 code = UA Leuk Est) PM) [facility] AND [id number] 18:47:00 Test Item Value Reference Range Interpretation Comments UA Blood (test code = Negative (10/14/15 1:47 UA Blood) PM) [facility] AND [id number] 18:47:00 Test Item Value Reference Range Interpretation Comments UA Urobilinogen (test code = UA <=1.0 mg/dL 0.1-1.0 Urobilinogen) [facility] AND [id number] 18:47:00 Test Item Value Reference Range Interpretation Comments UA Sq Epi (test code = UA Sq Epi) None Seen [facility] AND [id number] 18:47:00 Test Item Value Reference Range Interpretation Comments UA Ketones (test code = UA Negative mg/dL Ketones) [facility] [id number] 18:47:00 Test Item Value Reference Range Interpretation Comments UA Protein (test code = UA Negative mg/dL Protein) [facility] [id number] 18:47:00 Test Item Value Reference Range Interpretation Comments UA Spec Grav (test code = UA Spec Grav) 1.013 [facility] AND [id number] 18:47:00 Test Item Value Reference Range Interpretation Comments UA Turbidity (test code = Clear (10/14/15 1:47 UA Turbidity) PM) [facility] [id number] 18:47:00 Test Item Value Reference Range Interpretation Comments UA Glucose (test code = UA Negative mg/dL Glucose) [facility] AND [id number] 18:47:00 Test Item Value Reference Range Interpretation Comments UA pH (test code = UA pH) 6.0 5.0-8.0 [facility] AND [id number] 18:47:00 Test Item Value Reference Range Interpretation Comments UA Color (test code = Yellow *NA*(10/14/15 UA Color) 1:47 PM) [facility] AND [id number] 18:47:00 Test Item Value Reference Range Interpretation Comments UA Hyal Cast (test 8 See_Comment [Automat ed message] The code = UA Hyal Cast) system which generated this result transmit shaun reference range : <=2. The reference range was not used to interpr et this result as jackeline l/abnormal. [facility] [id number] 18:47:00 Test Item Value Reference Range Interpretation Comments UA Mucus (test code = UA Mucus) Few /LPF [facility] AND [id number] 18:47:00 Test Item Value Reference Range Interpretation Comments UA RBC (test code = no gt See_Comment [Automa shaun message] The UA RBC) system which ge nerated this result transmit shaun reference range : <=2. The reference range was not used to interpr et this result as jackeline l/abnormal. [facility] [id number] 18:47:00 Test Item Value Reference Range Interpretation Comments UA WBC (test code = 1 See_Comment [Automa shaun message] The UA WBC) system which ge nerated this result transmit shaun reference range : <=5. The reference range was not used to interpr et this result as jackeline l/abnormal. [facility] [id number] 18:47:00 Test Item Value Reference Range Interpretation Comments UA Nitrite (test code Negative (10/14/15 1:47 = UA Nitrite) PM) [facility] AND [id number] 18:47:00 Test Item Value Reference Range Interpretation Comments UA Bili (test code = Negative *NA*(10/14/15 UA Bili) 1:47 PM) [facility] [id number] 18:47:00 Test Item Value Reference Range Interpretation Comments UA Leuk Est (test Negative (10/14/15 1:47 code = UA Leuk Est) PM) [facility] [id number] 18:47:00 Test Item Value Reference Range Interpretation Comments UA Blood (test code = Negative (10/14/15 1:47 UA Blood) PM) [facility] AND [id number] 18:47:00 Test Item Value Reference Range Interpretation Comments UA Urobilinogen (test code = UA <=1.0 mg/dL 0.1-1.0 Urobilinogen) [facility] AND [id number] 18:47:00 Test Item Value Reference Range Interpretation Comments UA Sq Epi (test code = UA Sq Epi) None Seen [facility] AND [id number] 18:47:00 Test Item Value Reference Range Interpretation Comments UA Ketones (test code = UA Negative mg/dL Ketones) [facility] AND [id number] 18:47:00 Test Item Value Reference Range Interpretation Comments UA Protein (test code = UA Negative mg/dL Protein) [facility] AND [id number] 18:47:00 Test Item Value Reference Range Interpretation Comments UA Spec Grav (test code = UA Spec Grav) 1.013 [facility] AND [id number] 18:47:00 Test Item Value Reference Range Interpretation Comments UA Turbidity (test code = Clear (10/14/15 1:47 UA Turbidity) PM) [facility] AND [id number] 18:47:00 Test Item Value Reference Range Interpretation Comments UA Glucose (test code = UA Negative mg/dL Glucose) [facility] AND [id number] 18:47:00 Test Item Value Reference Range Interpretation Comments UA pH (test code = UA pH) 6.0 5.0-8.0 [facility] AND [id number] 18:47:00 Test Item Value Reference Range Interpretation Comments UA Color (test code = Yellow *NA*(10/14/15 UA Color) 1:47 PM) [facility] AND [id number] 18:47:00 Test Item Value Reference Range Interpretation Comments UA Hyal Cast (test 8 See_Comment [Automat ed message] The code = UA Hyal Cast) system which generated this result transmit shaun reference range : <=2. The reference range was not used to interpr et this result as jackeline l/abnormal. [facility] AND [id number] 18:47:00 Test Item Value Reference Range Interpretation Comments UA Mucus (test code = UA Mucus) Few /LPF [facility] AND [id number] 18:47:00 Test Item Value Reference Range Interpretation Comments UA RBC (test code = no gt See_Comment [Automa shaun message] The UA RBC) system which ge nerated this result transmit shaun reference range : <=2. The reference range was not used to interpr et this result as jackeline l/abnormal. [facility] AND [id number] 18:47:00 Test Item Value Reference Range Interpretation Comments UA WBC (test code = 1 See_Comment [Automa shaun message] The UA WBC) system which ge nerated this result transmit shaun reference range : <=5. The reference range was not used to interpr et this result as jackeline l/abnormal. [facility] AND [id number] 18:47:00 Test Item Value Reference Range Interpretation Comments UA Nitrite (test code Negative (10/14/15 1:47 = UA Nitrite) PM) [facility] AND [id number] 18:47:00 Test Item Value Reference Range Interpretation Comments UA Bili (test code = Negative *NA*(10/14/15 UA Bili) 1:47 PM) [facility] AND [id number] 18:47:00 Test Item Value Reference Range Interpretation Comments UA Leuk Est (test Negative (10/14/15 1:47 code = UA Leuk Est) PM) [facility] AND [id number] 18:47:00 Test Item Value Reference Range Interpretation Comments UA Blood (test code = Negative (10/14/15 1:47 UA Blood) PM) [facility] AND [id number] 18:47:00 Test Item Value Reference Range Interpretation Comments UA Urobilinogen (test code = UA <=1.0 mg/dL 0.1-1.0 Urobilinogen) [facility] AND [id number] 18:47:00 Test Item Value Reference Range Interpretation Comments UA Sq Epi (test code = UA Sq Epi) None Seen [facility] AND [id number] 18:47:00 Test Item Value Reference Range Interpretation Comments UA Ketones (test code = UA Negative mg/dL Ketones) [facility] AND [id number] 18:47:00 Test Item Value Reference Range Interpretation Comments UA Protein (test code = UA Negative mg/dL Protein) [facility] AND [id number] 18:47:00 Test Item Value Reference Range Interpretation Comments UA Spec Grav (test code = UA Spec Grav) 1.013 [facility] AND [id number] 18:47:00 Test Item Value Reference Range Interpretation Comments UA Turbidity (test code = Clear (10/14/15 1:47 UA Turbidity) PM) [facility] AND [id number] 18:47:00 Test Item Value Reference Range Interpretation Comments UA Glucose (test code = UA Negative mg/dL Glucose) [facility] AND [id number] 18:47:00 Test Item Value Reference Range Interpretation Comments UA pH (test code = UA pH) 6.0 5.0-8.0 [facility] AND [id number] 18:47:00 Test Item Value Reference Range Interpretation Comments UA Color (test code = Yellow *NA*(10/14/15 UA Color) 1:47 PM) [facility] AND [id number] 18:47:00 Test Item Value Reference Range Interpretation Comments UA Hyal Cast (test 8 See_Comment [Automat ed message] The code = UA Hyal Cast) system which generated this result transmit shaun reference range : <=2. The reference range was not used to interpr et this result as jackeline l/abnormal. [facility] AND [id number] 18:47:00 Test Item Value Reference Range Interpretation Comments UA Mucus (test code = UA Mucus) Few /LPF [facility] AND [id number] 18:47:00 Test Item Value Reference Range Interpretation Comments UA RBC (test code = no gt See_Comment [Automa shaun message] The UA RBC) system which ge nerated this result transmit shaun reference range : <=2. The reference range was not used to interpr et this result as jackeline l/abnormal. [facility] AND [id number] 18:47:00 Test Item Value Reference Range Interpretation Comments UA WBC (test code = 1 See_Comment [Automa shaun message] The UA WBC) system which ge nerated this result transmit shaun reference range : <=5. The reference range was not used to interpr et this result as jackeline l/abnormal. [facility] [id number] 18:47:00 Test Item Value Reference Range Interpretation Comments UA Nitrite (test code Negative (10/14/15 1:47 = UA Nitrite) PM) [facility] AND [id number] 18:47:00 Test Item Value Reference Range Interpretation Comments UA Bili (test code = Negative *NA*(10/14/15 UA Bili) 1:47 PM) [facility] AND [id number] 18:47:00 Test Item Value Reference Range Interpretation Comments UA Leuk Est (test Negative (10/14/15 1:47 code = UA Leuk Est) PM) [facility] AND [id number] 18:47:00 Test Item Value Reference Range Interpretation Comments UA Blood (test code = Negative (10/14/15 1:47 UA Blood) PM) [facility] AND [id number] 18:47:00 Test Item Value Reference Range Interpretation Comments UA Urobilinogen (test code = UA <=1.0 mg/dL 0.1-1.0 Urobilinogen) [facility] AND [id number] 18:47:00 Test Item Value Reference Range Interpretation Comments UA Sq Epi (test code = UA Sq Epi) None Seen [facility] AND [id number] 18:47:00 Test Item Value Reference Range Interpretation Comments UA Ketones (test code = UA Negative mg/dL Ketones) [facility] AND [id number] 18:47:00 Test Item Value Reference Range Interpretation Comments UA Protein (test code = UA Negative mg/dL Protein) [facility] AND [id number] 18:47:00 Test Item Value Reference Range Interpretation Comments UA Spec Grav (test code = UA Spec Grav) 1.013 [facility] [id number] 18:47:00 Test Item Value Reference Range Interpretation Comments UA Turbidity (test code = Clear (10/14/15 1:47 UA Turbidity) PM) [facility] Zhane AND [id number] 18:47:00 Test Item Value Reference Range Interpretation Comments UA Glucose (test code = UA Negative mg/dL Glucose) [facility] [id number] 18:47:00 Test Item Value Reference Range Interpretation Comments UA pH (test code = UA pH) 6.0 5.0-8.0 [facility] [id number] 18:47:00 Test Item Value Reference Range Interpretation Comments UA Color (test code = Yellow *NA*(10/14/15 UA Color) 1:47 PM) [facility] [id number] 18:47:00 Test Item Value Reference Range Interpretation Comments UA Hyal Cast (test 8 See_Comment [Automat ed message] The code = UA Hyal Cast) system which generated this result transmit shaun reference range : <=2. The reference range was not used to interpr et this result as jackeline l/abnormal. [facility] [id number] 18:47:00 Test Item Value Reference Range Interpretation Comments UA Mucus (test code = UA Mucus) Few /LPF [facility] AND [id number] 18:47:00 Test Item Value Reference Range Interpretation Comments UA RBC (test code = no gt See_Comment [Automa shaun message] The UA RBC) system which ge nerated this result transmit shaun reference range : <=2. The reference range was not used to interpr et this result as jackeline l/abnormal. [facility] AND [id number] 18:47:00 Test Item Value Reference Range Interpretation Comments UA WBC (test code = 1 See_Comment [Automa shaun message] The UA WBC) system which ge nerated this result transmit shaun reference range : <=5. The reference range was not used to interpr et this result as jackeline l/abnormal. [facility] AND [id number] 18:47:00 Test Item Value Reference Range Interpretation Comments UA Nitrite (test code Negative (10/14/15 1:47 = UA Nitrite) PM) [facility] AND [id number] 18:47:00 Test Item Value Reference Range Interpretation Comments UA Bili (test code = Negative *NA*(10/14/15 UA Bili) 1:47 PM) [facility] [id number] 18:47:00 Test Item Value Reference Range Interpretation Comments UA Leuk Est (test Negative (10/14/15 1:47 code = UA Leuk Est) PM) [facility] AND [id number] 18:47:00 Test Item Value Reference Range Interpretation Comments UA Blood (test code = Negative (10/14/15 1:47 UA Blood) PM) [facility] AND [id number] 18:47:00 Test Item Value Reference Range Interpretation Comments UA Urobilinogen (test code = UA <=1.0 mg/dL 0.1-1.0 Urobilinogen) [facility] AND [id number] 18:47:00 Test Item Value Reference Range Interpretation Comments UA Sq Epi (test code = UA Sq Epi) None Seen [facility] [id number] 18:47:00 Test Item Value Reference Range Interpretation Comments UA Ketones (test code = UA Negative mg/dL Ketones) [facility] [id number] 18:47:00 Test Item Value Reference Range Interpretation Comments UA Protein (test code = UA Negative mg/dL Protein) [facility] AND [id number] 18:47:00 Test Item Value Reference Range Interpretation Comments UA Urobilinogen (test code = UA <=1.0 mg/dL 0.1-1.0 Urobilinogen) [facility] AND [id number] 18:47:00 Test Item Value Reference Range Interpretation Comments UA Sq Epi (test code = UA Sq Epi) None [facility]en [facility] [id number] 18:47:00 Test Item Value Reference Range Interpretation Comments UA Ketones (test code = UA Negative mg/dL Ketones) [facility] [id number] 18:47:00 Test Item Value Reference Range Interpretation Comments UA Protein (test code = UA Negative mg/dL Protein) [facility] [id number] 18:47:00 Test Item Value Reference Range Interpretation Comments UA Spec Grav (test code = UA Spec Grav) 1.013 [facility] AND [id number] 18:47:00 Test Item Value Reference Range Interpretation Comments UA Turbidity (test code = Clear (10/14/15 1:47 UA Turbidity) PM) [facility] AND [id number] 18:47:00 Test Item Value Reference Range Interpretation Comments UA Glucose (test code = UA Negative mg/dL Glucose) [facility] AND [id number] 18:47:00 Test Item Value Reference Range Interpretation Comments UA pH (test code = UA pH) 6.0 5.0-8.0 [facility] AND [id number] 18:47:00 Test Item Value Reference Range Interpretation Comments UA Color (test code = Yellow *NA*(10/14/15 UA Color) 1:47 PM) [facility] AND [id number] 18:47:00 Test Item Value Reference Range Interpretation Comments UA Hyal Cast (test 8 See_Comment [Automat ed message] The code = UA Hyal Cast) system which generated this result transmit shaun reference range : <=2. The reference range was not used to interpr et this result as jackeline l/abnormal. [facility] AND [id number] 18:47:00 Test Item Value Reference Range Interpretation Comments UA Spec Grav (test code = UA Spec Grav) 1.013 [facility] AND [id number] 18:47:00 Test Item Value Reference Range Interpretation Comments UA Mucus (test code = UA Mucus) Few /LPF [facility] AND [id number] 18:47:00 Test Item Value Reference Range Interpretation Comments UA RBC (test code = no gt See_Comment [Automa shaun message] The UA RBC) system which ge nerated this result transmit shaun reference range : <=2. The reference range was not used to interpr et this result as jackeline l/abnormal. [facility] AND [id number] 18:47:00 Test Item Value Reference Range Interpretation Comments UA WBC (test code = 1 See_Comment [Automa shaun message] The UA WBC) system which ge nerated this result transmit shaun reference range : <=5. The reference range was not used to interpr et this result as jackeline l/abnormal. [facility] AND [id number] 18:47:00 Test Item Value Reference Range Interpretation Comments UA Nitrite (test code Negative (10/14/15 1:47 = UA Nitrite) PM) [facility] AND [id number] 18:47:00 Test Item Value Reference Range Interpretation Comments UA Bili (test code = Negative *NA*(10/14/15 UA Bili) 1:47 PM) [facility] AND [id number] 18:47:00 Test Item Value Reference Range Interpretation Comments UA Leuk Est (test Negative (10/14/15 1:47 code = UA Leuk Est) PM) [facility] AND [id number] 18:47:00 Test Item Value Reference Range Interpretation Comments UA Blood (test code = Negative (10/14/15 1:47 UA Blood) PM) [facility] AND [id number] 18:47:00 Test Item Value Reference Range Interpretation Comments UA Turbidity (test code = Clear (10/14/15 1:47 UA Turbidity) PM) [facility] AND [id number] 18:47:00 Test Item Value Reference Range Interpretation Comments UA Glucose (test code = UA Negative mg/dL Glucose) [facility] AND [id number] 18:47:00 Test Item Value Reference Range Interpretation Comments UA pH (test code = UA pH) 6.0 5.0-8.0 [facility] AND [id number] 18:47:00 Test Item Value Reference Range Interpretation Comments UA Color (test code = Yellow *NA*(10/14/15 UA Color) 1:47 PM) [facility] AND [id number] 18:47:00 Test Item Value Reference Range Interpretation Comments UA Hyal Cast (test 8 See_Comment [Automat ed message] The code = UA Hyal Cast) system which generated this result transmit shaun reference range : <=2. The reference range was not used to interpr et this result as jackeline l/abnormal. [facility] AND [id number] 18:47:00 Test Item Value Reference Range Interpretation Comments UA Mucus (test code = UA Mucus) Few /LPF [facility] AND [id number] 18:47:00 Test Item Value Reference Range Interpretation Comments UA RBC (test code = no gt See_Comment [Automa shaun message] The UA RBC) system which ge nerated this result transmit shaun reference range : <=2. The reference range was not used to interpr et this result as jackeline l/abnormal. [facility] [id number] 18:47:00 Test Item Value Reference Range Interpretation Comments UA WBC (test code = 1 See_Comment [Automa shaun message] The UA WBC) system which ge nerated this result transmit shaun reference range : <=5. The reference range was not used to interpr et this result as jackeline l/abnormal. [facility] [id number] 18:47:00 Test Item Value Reference Range Interpretation Comments UA Nitrite (test code Negative (10/14/15 1:47 = UA Nitrite) PM) [facility] [id number] 18:47:00 Test Item Value Reference Range Interpretation Comments UA Bili (test code = Negative *NA*(10/14/15 UA Bili) 1:47 PM) [facility] [id number] 18:47:00 Test Item Value Reference Range Interpretation Comments UA Leuk Est (test Negative (10/14/15 1:47 code = UA Leuk Est) PM) [facility] [id number] 18:47:00 Test Item Value Reference Range Interpretation Comments UA Blood (test code = Negative (10/14/15 1:47 UA Blood) PM) [facility] [id number] 18:47:00 Test Item Value Reference Range Interpretation Comments UA Urobilinogen (test code = UA <=1.0 mg/dL 0.1-1.0 Urobilinogen) [facility] [id number] 18:47:00 Test Item Value Reference Range Interpretation Comments UA Sq Epi (test code = UA Sq Epi) None [facility]en [facility] [id number] 18:47:00 Test Item Value Reference Range Interpretation Comments UA Ketones (test code = UA Negative mg/dL Ketones) [facility] [id number] 18:47:00 Test Item Value Reference Range Interpretation Comments UA Protein (test code = UA Negative mg/dL Protein) [facility] [id number] 18:47:00 Test Item Value Reference Range Interpretation Comments UA Spec Grav (test code = UA Spec Grav) 1.013 [facility] AND [id number] 18:47:00 Test Item Value Reference Range Interpretation Comments UA Turbidity (test code = Clear (10/14/15 1:47 UA Turbidity) PM) [facility] AND [id number] 18:47:00 Test Item Value Reference Range Interpretation Comments UA Glucose (test code = UA Negative mg/dL Glucose) [facility] AND [id number] 18:47:00 Test Item Value Reference Range Interpretation Comments UA pH (test code = UA pH) 6.0 5.0-8.0 [facility] AND [id number] 18:47:00 Test Item Value Reference Range Interpretation Comments UA Color (test code = Yellow *NA*(10/14/15 UA Color) 1:47 PM) [facility] AND [id number] 18:47:00 Test Item Value Reference Range Interpretation Comments UA Hyal Cast (test 8 See_Comment [Automat ed message] The code = UA Hyal Cast) system which generated this result transmit shaun reference range : <=2. The reference range was not used to interpr et this result as jackeline l/abnormal. [facility] AND [id number] 18:47:00 Test Item Value Reference Range Interpretation Comments UA Mucus (test code = UA Mucus) Few /LPF [facility] AND [id number] 18:47:00 Test Item Value Reference Range Interpretation Comments UA RBC (test code = no gt See_Comment [Automa shaun message] The UA RBC) system which ge nerated this result transmit shaun reference range : <=2. The reference range was not used to interpr et this result as jackeline l/abnormal. [facility] AND [id number] 18:47:00 Test Item Value Reference Range Interpretation Comments UA WBC (test code = 1 See_Comment [Automa shaun message] The UA WBC) system which ge nerated this result transmit shaun reference range : <=5. The reference range was not used to interpr et this result as jackeline l/abnormal. [facility] AND [id number] 18:47:00 Test Item Value Reference Range Interpretation Comments UA Nitrite (test code Negative (10/14/15 1:47 = UA Nitrite) PM) [facility] AND [id number] 18:47:00 Test Item Value Reference Range Interpretation Comments UA Bili (test code = Negative *NA*(10/14/15 UA Bili) 1:47 PM) [facility] AND [id number] 18:47:00 Test Item Value Reference Range Interpretation Comments UA Leuk Est (test Negative (10/14/15 1:47 code = UA Leuk Est) PM) [facility] AND [id number] 18:47:00 Test Item Value Reference Range Interpretation Comments UA Blood (test code = Negative (10/14/15 1:47 UA Blood) PM) [facility] AND [id number] 18:47:00 Test Item Value Reference Range Interpretation Comments UA Urobilinogen (test code = UA <=1.0 mg/dL 0.1-1.0 Urobilinogen) [facility] AND [id number] 18:47:00 Test Item Value Reference Range Interpretation Comments UA Sq Epi (test code = UA Sq Epi) None Seen [facility] AND [id number] 18:47:00 Test Item Value Reference Range Interpretation Comments UA Ketones (test code = UA Negative mg/dL Ketones) [facility] AND [id number] 18:47:00 Test Item Value Reference Range Interpretation Comments UA Protein (test code = UA Negative mg/dL Protein) [facility] AND [id number] 18:47:00 Test Item Value Reference Range Interpretation Comments UA Spec Grav (test code = UA Spec Grav) 1.013 [facility] AND [id number] 18:47:00 Test Item Value Reference Range Interpretation Comments UA Turbidity (test code = Clear (10/14/15 1:47 UA Turbidity) PM) [facility] AND [id number] 18:47:00 Test Item Value Reference Range Interpretation Comments UA Glucose (test code = UA Negative mg/dL Glucose) [facility] AND [id number] 18:47:00 Test Item Value Reference Range Interpretation Comments UA pH (test code = UA pH) 6.0 5.0-8.0 [facility] AND [id number] 18:47:00 Test Item Value Reference Range Interpretation Comments UA Color (test code = Yellow *NA*(10/14/15 UA Color) 1:47 PM) [facility] AND [id number] 18:47:00 Test Item Value Reference Range Interpretation Comments UA Hyal Cast (test 8 See_Comment [Automat ed message] The code = UA Hyal Cast) system which generated this result transmit shaun reference range : <=2. The reference range was not used to interpr et this result as jackeline l/abnormal. [facility] AND [id number] 18:47:00 Test Item Value Reference Range Interpretation Comments UA Mucus (test code = UA Mucus) Few /LPF [facility] AND [id number] 18:47:00 Test Item Value Reference Range Interpretation Comments UA RBC (test code = no gt See_Comment [Automa shaun message] The UA RBC) system which ge nerated this result transmit shaun reference range : <=2. The reference range was not used to interpr et this result as jackeline l/abnormal. [facility] AND [id number] 18:47:00 Test Item Value Reference Range Interpretation Comments UA WBC (test code = 1 See_Comment [Automa shaun message] The UA WBC) system which ge nerated this result transmit shaun reference range : <=5. The reference range was not used to interpr et this result as jackeline l/abnormal. [facility] AND [id number] 18:47:00 Test Item Value Reference Range Interpretation Comments UA Nitrite (test code Negative (10/14/15 1:47 = UA Nitrite) PM) [facility] AND [id number] 18:47:00 Test Item Value Reference Range Interpretation Comments UA Bili (test code = Negative *NA*(10/14/15 UA Bili) 1:47 PM) [facility] [id number] 18:47:00 Test Item Value Reference Range Interpretation Comments UA Leuk Est (test Negative (10/14/15 1:47 code = UA Leuk Est) PM) [facility] AND [id number] 18:47:00 Test Item Value Reference Range Interpretation Comments UA Blood (test code = Negative (10/14/15 1:47 UA Blood) PM) [facility] AND [id number] 18:47:00 Test Item Value Reference Range Interpretation Comments UA Urobilinogen (test code = UA <=1.0 mg/dL 0.1-1.0 Urobilinogen) [facility] AND [id number] 18:47:00 Test Item Value Reference Range Interpretation Comments UA Sq Epi (test code = UA Sq Epi) None Seen [facility] AND [id number] 18:47:00 Test Item Value Reference Range Interpretation Comments UA Ketones (test code = UA Negative mg/dL Ketones) [facility] AND [id number] 18:47:00 Test Item Value Reference Range Interpretation Comments UA Protein (test code = UA Negative mg/dL Protein) [facility] AND [id number] 18:47:00 Test Item Value Reference Range Interpretation Comments UA Spec Grav (test code = UA Spec Grav) 1.013 [facility] AND [id number] 18:47:00 Test Item Value Reference Range Interpretation Comments UA Turbidity (test code = Clear (10/14/15 1:47 UA Turbidity) PM) [facility] AND [id number] 18:47:00 Test Item Value Reference Range Interpretation Comments UA Glucose (test code = UA Negative mg/dL Glucose) [facility] AND [id number] 18:47:00 Test Item Value Reference Range Interpretation Comments UA pH (test code = UA pH) 6.0 5.0-8.0 [facility] AND [id number] 18:47:00 Test Item Value Reference Range Interpretation Comments UA Color (test code = Yellow *NA*(10/14/15 UA Color) 1:47 PM) [facility] AND [id number] 18:47:00 Test Item Value Reference Range Interpretation Comments UA Hyal Cast (test 8 See_Comment [Automat ed message] The code = UA Hyal Cast) system which generated this result transmit shaun reference range : <=2. The reference range was not used to interpr et this result as jackeline l/abnormal. [facility] AND [id number] 18:47:00 Test Item Value Reference Range Interpretation Comments UA Mucus (test code = UA Mucus) Few /LPF [facility] AND [id number] 18:47:00 Test Item Value Reference Range Interpretation Comments UA RBC (test code = no gt See_Comment [Automa shuan message] The UA RBC) system which ge nerated this result transmit shaun reference range : <=2. The reference range was not used to interpr et this result as jackeline l/abnormal. [facility] AND [id number] 18:47:00 Test Item Value Reference Range Interpretation Comments UA WBC (test code = 1 See_Comment [Automa shaun message] The UA WBC) system which ge nerated this result transmit shaun reference range : <=5. The reference range was not used to interpr et this result as jackeline l/abnormal. [facility] AND [id number] 18:47:00 Test Item Value Reference Range Interpretation Comments UA Nitrite (test code Negative (10/14/15 1:47 = UA Nitrite) PM) [facility] AND [id number] 18:47:00 Test Item Value Reference Range Interpretation Comments UA Bili (test code = Negative *NA*(10/14/15 UA Bili) 1:47 PM) [facility] AND [id number] 18:47:00 Test Item Value Reference Range Interpretation Comments UA Leuk Est (test Negative (10/14/15 1:47 code = UA Leuk Est) PM) [facility] AND [id number] 18:47:00 Test Item Value Reference Range Interpretation Comments UA Blood (test code = Negative (10/14/15 1:47 UA Blood) PM) [facility] AND [id number] 18:47:00 Test Item Value Reference Range Interpretation Comments UA Urobilinogen (test code = UA <=1.0 mg/dL 0.1-1.0 Urobilinogen) [facility] AND [id number] 18:47:00 Test Item Value Reference Range Interpretation Comments UA Sq Epi (test code = UA Sq Epi) None Seen [facility] AND [id number] 18:47:00 Test Item Value Reference Range Interpretation Comments UA Ketones (test code = UA Negative mg/dL Ketones) [facility] AND [id number] 18:47:00 Test Item Value Reference Range Interpretation Comments UA Protein (test code = UA Negative mg/dL Protein) [facility] AND [id number] 18:47:00 Test Item Value Reference Range Interpretation Comments UA Spec Grav (test code = UA Spec Grav) 1.013 [facility] AND [id number] 18:47:00 Test Item Value Reference Range Interpretation Comments UA Turbidity (test code = Clear (10/14/15 1:47 UA Turbidity) PM) [facility] AND [id number] 18:47:00 Test Item Value Reference Range Interpretation Comments UA Glucose (test code = UA Negative mg/dL Glucose) [facility] AND [id number] 18:47:00 Test Item Value Reference Range Interpretation Comments UA pH (test code = UA pH) 6.0 5.0-8.0 [facility] AND [id number] 18:47:00 Test Item Value Reference Range Interpretation Comments UA Color (test code = Yellow *NA*(10/14/15 UA Color) 1:47 PM) [facility] AND [id number] 18:47:00 Test Item Value Reference Range Interpretation Comments UA Hyal Cast (test 8 See_Comment [Automat ed message] The code = UA Hyal Cast) system which generated this result transmit shaun reference range : <=2. The reference range was not used to interpr et this result as jackeline l/abnormal. [facility] AND [id number] 18:47:00 Test Item Value Reference Range Interpretation Comments UA Mucus (test code = UA Mucus) Few /LPF [facility] AND [id number] 18:47:00 Test Item Value Reference Range Interpretation Comments UA RBC (test code = no gt See_Comment [Automa shaun message] The UA RBC) system which ge nerated this result transmit shaun reference range : <=2. The reference range was not used to interpr et this result as jackeline l/abnormal. [facility] AND [id number] 18:47:00 Test Item Value Reference Range Interpretation Comments UA WBC (test code = 1 See_Comment [Automa shaun message] The UA WBC) system which ge nerated this result transmit shaun reference range : <=5. The reference range was not used to interpr et this result as jackeline l/abnormal. [facility] AND [id number] 18:47:00 Test Item Value Reference Range Interpretation Comments UA Nitrite (test code Negative (10/14/15 1:47 = UA Nitrite) PM) [facility] AND [id number] 18:47:00 Test Item Value Reference Range Interpretation Comments UA Bili (test code = Negative *NA*(10/14/15 UA Bili) 1:47 PM) [facility] AND [id number] 18:47:00 Test Item Value Reference Range Interpretation Comments UA Leuk Est (test Negative (10/14/15 1:47 code = UA Leuk Est) PM) [facility] AND [id number] 18:47:00 Test Item Value Reference Range Interpretation Comments UA Blood (test code = Negative (10/14/15 1:47 UA Blood) PM) [facility] AND [id number] 18:47:00 Test Item Value Reference Range Interpretation Comments UA Urobilinogen (test code = UA <=1.0 mg/dL 0.1-1.0 Urobilinogen) [facility] AND [id number] 18:47:00 Test Item Value Reference Range Interpretation Comments UA Sq Epi (test code = UA Sq Epi) None Seen [facility] AND [id number] 18:47:00 Test Item Value Reference Range Interpretation Comments UA Ketones (test code = UA Negative mg/dL Ketones) [facility] AND [id number] 18:47:00 Test Item Value Reference Range Interpretation Comments UA Protein (test code = UA Negative mg/dL Protein) [facility] AND [id number] 18:47:00 Test Item Value Reference Range Interpretation Comments UA Spec Grav (test code = UA Spec Grav) 1.013 [facility] AND [id number] 18:47:00 Test Item Value Reference Range Interpretation Comments UA Turbidity (test code = Clear (10/14/15 1:47 UA Turbidity) PM) [facility] AND [id number] 18:47:00 Test Item Value Reference Range Interpretation Comments UA Glucose (test code = UA Negative mg/dL Glucose) [facility] AND [id number] 18:47:00 Test Item Value Reference Range Interpretation Comments UA pH (test code = UA pH) 6.0 5.0-8.0 [facility] AND [id number] 18:47:00 Test Item Value Reference Range Interpretation Comments UA Color (test code = Yellow *NA*(10/14/15 UA Color) 1:47 PM) [facility] AND [id number] 18:47:00 Test Item Value Reference Range Interpretation Comments UA Hyal Cast (test 8 See_Comment [Automat ed message] The code = UA Hyal Cast) system which generated this result transmit shaun reference range : <=2. The reference range was not used to interpr et this result as jackeline l/abnormal. [facility] AND [id number] 18:47:00 Test Item Value Reference Range Interpretation Comments UA Mucus (test code = UA Mucus) Few /LPF [facility] AND [id number] 18:47:00 Test Item Value Reference Range Interpretation Comments UA RBC (test code = no gt See_Comment [Automa shaun message] The UA RBC) system which ge nerated this result transmit shaun reference range : <=2. The reference range was not used to interpr et this result as jackeline l/abnormal. [facility] AND [id number] 18:47:00 Test Item Value Reference Range Interpretation Comments UA WBC (test code = 1 See_Comment [Automa shaun message] The UA WBC) system which ge nerated this result transmit shaun reference range : <=5. The reference range was not used to interpr et this result as jackeline l/abnormal. [facility] AND [id number] 18:47:00 Test Item Value Reference Range Interpretation Comments UA Nitrite (test code Negative (10/14/15 1:47 = UA Nitrite) PM) [facility] AND [id number] 18:47:00 Test Item Value Reference Range Interpretation Comments UA Bili (test code = Negative *NA*(10/14/15 UA Bili) 1:47 PM) [facility] AND [id number] 18:47:00 Test Item Value Reference Range Interpretation Comments UA Leuk Est (test Negative (10/14/15 1:47 code = UA Leuk Est) PM) [facility] AND [id number] 18:47:00 Test Item Value Reference Range Interpretation Comments UA Blood (test code = Negative (10/14/15 1:47 UA Blood) PM) [facility] AND [id number] 18:47:00 Test Item Value Reference Range Interpretation Comments UA Urobilinogen (test code = UA <=1.0 mg/dL 0.1-1.0 Urobilinogen) [facility] AND [id number] 18:47:00 Test Item Value Reference Range Interpretation Comments UA Sq Epi (test code = UA Sq Epi) None Seen [facility] AND [id number] 18:47:00 Test Item Value Reference Range Interpretation Comments UA Ketones (test code = UA Negative mg/dL Ketones) [facility] AND [id number] 18:47:00 Test Item Value Reference Range Interpretation Comments UA Protein (test code = UA Negative mg/dL Protein) [facility] AND [id number] 18:47:00 Test Item Value Reference Range Interpretation Comments UA Spec Grav (test code = UA Spec Grav) 1.013 [facility] AND [id number] 18:47:00 Test Item Value Reference Range Interpretation Comments UA Turbidity (test code = Clear (10/14/15 1:47 UA Turbidity) PM) [facility] AND [id number] 18:47:00 Test Item Value Reference Range Interpretation Comments UA Glucose (test code = UA Negative mg/dL Glucose) [facility] AND [id number] 18:47:00 Test Item Value Reference Range Interpretation Comments UA pH (test code = UA pH) 6.0 5.0-8.0 [facility] AND [id number] 18:47:00 Test Item Value Reference Range Interpretation Comments UA Color (test code = Yellow *NA*(10/14/15 UA Color) 1:47 PM) [facility] AND [id number] 18:47:00 Test Item Value Reference Range Interpretation Comments UA Hyal Cast (test 8 See_Comment [Automat ed message] The code = UA Hyal Cast) system which generated this result transmit shaun reference range : <=2. The reference range was not used to interpr et this result as jackeline l/abnormal. [facility] AND [id number] 18:47:00 Test Item Value Reference Range Interpretation Comments UA Mucus (test code = UA Mucus) Few /LPF [facility] AND [id number] 18:47:00 Test Item Value Reference Range Interpretation Comments UA RBC (test code = no gt See_Comment [Automa shaun message] The UA RBC) system which ge nerated this result transmit shaun reference range : <=2. The reference range was not used to interpr et this result as jackeline l/abnormal. [facility] AND [id number] 18:47:00 Test Item Value Reference Range Interpretation Comments UA WBC (test code = 1 See_Comment [Automa shaun message] The UA WBC) system which ge nerated this result transmit shaun reference range : <=5. The reference range was not used to interpr et this result as jackeline l/abnormal. [facility] AND [id number] 18:47:00 Test Item Value Reference Range Interpretation Comments UA Nitrite (test code Negative (10/14/15 1:47 = UA Nitrite) PM) [facility] AND [id number] 18:47:00 Test Item Value Reference Range Interpretation Comments UA Bili (test code = Negative *NA*(10/14/15 UA Bili) 1:47 PM) [facility] AND [id number] 18:47:00 Test Item Value Reference Range Interpretation Comments UA Leuk Est (test Negative (10/14/15 1:47 code = UA Leuk Est) PM) [facility] AND [id number] 18:47:00 Test Item Value Reference Range Interpretation Comments UA Blood (test code = Negative (10/14/15 1:47 UA Blood) PM) [facility] AND [id number] 18:47:00 Test Item Value Reference Range Interpretation Comments UA Urobilinogen (test code = UA <=1.0 mg/dL 0.1-1.0 Urobilinogen) [facility] AND [id number] 18:47:00 Test Item Value Reference Range Interpretation Comments UA Sq Epi (test code = UA Sq Epi) None Seen [facility] AND [id number] 18:47:00 Test Item Value Reference Range Interpretation Comments UA Ketones (test code = UA Negative mg/dL Ketones) [facility] AND [id number] 18:47:00 Test Item Value Reference Range Interpretation Comments UA Protein (test code = UA Negative mg/dL Protein) [facility] AND [id number] 18:47:00 Test Item Value Reference Range Interpretation Comments UA Spec Grav (test code = UA Spec Grav) 1.013 [facility] AND [id number] 18:47:00 Test Item Value Reference Range Interpretation Comments UA Turbidity (test code = Clear (10/14/15 1:47 UA Turbidity) PM) [facility] AND [id number] 18:47:00 Test Item Value Reference Range Interpretation Comments UA Glucose (test code = UA Negative mg/dL Glucose) [facility] AND [id number] 18:47:00 Test Item Value Reference Range Interpretation Comments UA pH (test code = UA pH) 6.0 5.0-8.0 [facility] AND [id number] 18:47:00 Test Item Value Reference Range Interpretation Comments UA Color (test code = Yellow *NA*(10/14/15 UA Color) 1:47 PM) [facility] AND [id number] 18:47:00 Test Item Value Reference Range Interpretation Comments UA Hyal Cast (test 8 See_Comment [Automat ed message] The code = UA Hyal Cast) system which generated this result transmit shaun reference range : <=2. The reference range was not used to interpr et this result as jackeline l/abnormal. [facility] AND [id number] 18:47:00 Test Item Value Reference Range Interpretation Comments UA Mucus (test code = UA Mucus) Few /LPF [facility] AND [id number] 18:47:00 Test Item Value Reference Range Interpretation Comments UA RBC (test code = no gt See_Comment [Automa shaun message] The UA RBC) system which ge nerated this result transmit shaun reference range : <=2. The reference range was not used to interpr et this result as jackeline l/abnormal. [facility] AND [id number] 18:47:00 Test Item Value Reference Range Interpretation Comments UA WBC (test code = 1 See_Comment [Automa shaun message] The UA WBC) system which ge nerated this result transmit shaun reference range : <=5. The reference range was not used to interpr et this result as jackeline l/abnormal. [facility] AND [id number] 18:47:00 Test Item Value Reference Range Interpretation Comments UA Nitrite (test code Negative (10/14/15 1:47 = UA Nitrite) PM) [facility] AND [id number] 18:47:00 Test Item Value Reference Range Interpretation Comments UA Bili (test code = Negative *NA*(10/14/15 UA Bili) 1:47 PM) [facility] AND [id number] 18:47:00 Test Item Value Reference Range Interpretation Comments UA Leuk Est (test Negative (10/14/15 1:47 code = UA Leuk Est) PM) [facility] AND [id number] 18:47:00 Test Item Value Reference Range Interpretation Comments UA Blood (test code = Negative (10/14/15 1:47 UA Blood) PM) [facility] AND [id number] 18:47:00 Test Item Value Reference Range Interpretation Comments UA Urobilinogen (test code = UA <=1.0 mg/dL 0.1-1.0 Urobilinogen) [facility] AND [id number] 18:47:00 Test Item Value Reference Range Interpretation Comments UA Sq Epi (test code = UA Sq Epi) None Seen [facility] AND [id number] 18:47:00 Test Item Value Reference Range Interpretation Comments UA Ketones (test code = UA Negative mg/dL Ketones) [facility] AND [id number] 18:47:00 Test Item Value Reference Range Interpretation Comments UA Protein (test code = UA Negative mg/dL Protein) [facility] AND [id number] 18:47:00 Test Item Value Reference Range Interpretation Comments UA Spec Grav (test code = UA Spec Grav) 1.013 [facility] AND [id number] 18:47:00 Test Item Value Reference Range Interpretation Comments UA Turbidity (test code = Clear (10/14/15 1:47 UA Turbidity) PM) [facility] AND [id number] 18:47:00 Test Item Value Reference Range Interpretation Comments UA Glucose (test code = UA Negative mg/dL Glucose) [facility] AND [id number] 18:47:00 Test Item Value Reference Range Interpretation Comments UA pH (test code = UA pH) 6.0 5.0-8.0 [facility] AND [id number] 18:47:00 Test Item Value Reference Range Interpretation Comments UA Color (test code = Yellow *NA*(10/14/15 UA Color) 1:47 PM) [facility] AND [id number] 18:47:00 Test Item Value Reference Range Interpretation Comments UA Hyal Cast (test 8 See_Comment [Automat ed message] The code = UA Hyal Cast) system which generated this result transmit shaun reference range : <=2. The reference range was not used to interpr et this result as jackeline l/abnormal. [facility] [id number] 18:47:00 Test Item Value Reference Range Interpretation Comments UA Mucus (test code = UA Mucus) Few /LPF [facility] AND [id number] 18:47:00 Test Item Value Reference Range Interpretation Comments UA RBC (test code = no gt See_Comment [Automa shaun message] The UA RBC) system which ge nerated this result transmit shaun reference range : <=2. The reference range was not used to interpr et this result as jackeline l/abnormal. [facility] [id number] 18:47:00 Test Item Value Reference Range Interpretation Comments UA WBC (test code = 1 See_Comment [Automa shaun message] The UA WBC) system which ge nerated this result transmit shaun reference range : <=5. The reference range was not used to interpr et this result as jackeline l/abnormal. [facility] AND [id number] 18:47:00 Test Item Value Reference Range Interpretation Comments UA Nitrite (test code Negative (10/14/15 1:47 = UA Nitrite) PM) [facility] AND [id number] 18:47:00 Test Item Value Reference Range Interpretation Comments UA Bili (test code = Negative *NA*(10/14/15 UA Bili) 1:47 PM) [facility] AND [id number] 18:47:00 Test Item Value Reference Range Interpretation Comments UA Leuk Est (test Negative (10/14/15 1:47 code = UA Leuk Est) PM) [facility] AND [id number] 18:47:00 Test Item Value Reference Range Interpretation Comments UA Blood (test code = Negative (10/14/15 1:47 UA Blood) PM) [facility] AND [id number] 18:47:00 Test Item Value Reference Range Interpretation Comments UA Urobilinogen (test code = UA <=1.0 mg/dL 0.1-1.0 Urobilinogen) [facility] AND [id number] 18:47:00 Test Item Value Reference Range Interpretation Comments UA Sq Epi (test code = UA Sq Epi) None Seen [facility] AND [id number] 18:47:00 Test Item Value Reference Range Interpretation Comments UA Ketones (test code = UA Negative mg/dL Ketones) [facility] AND [id number] 18:47:00 Test Item Value Reference Range Interpretation Comments UA Protein (test code = UA Negative mg/dL Protein) [facility] AND [id number] 18:47:00 Test Item Value Reference Range Interpretation Comments UA Spec Grav (test code = UA Spec Grav) 1.013 [facility] AND [id number] 18:47:00 Test Item Value Reference Range Interpretation Comments UA Turbidity (test code = Clear (10/14/15 1:47 UA Turbidity) PM) [facility] AND [id number] 18:47:00 Test Item Value Reference Range Interpretation Comments UA Glucose (test code = UA Negative mg/dL Glucose) [facility] AND [id number] 18:47:00 Test Item Value Reference Range Interpretation Comments UA pH (test code = UA pH) 6.0 5.0-8.0 [facility] AND [id number] 18:47:00 Test Item Value Reference Range Interpretation Comments UA Color (test code = Yellow *NA*(10/14/15 UA Color) 1:47 PM) [facility] AND [id number] 18:47:00 Test Item Value Reference Range Interpretation Comments UA Hyal Cast (test 8 See_Comment [Automat ed message] The code = UA Hyal Cast) system which generated this result transmit shaun reference range : <=2. The reference range was not used to interpr et this result as jackeline l/abnormal. [facility] AND [id number] 18:47:00 Test Item Value Reference Range Interpretation Comments UA Mucus (test code = UA Mucus) Few /LPF [facility] AND [id number] 18:47:00 Test Item Value Reference Range Interpretation Comments UA RBC (test code = no gt See_Comment [Automa shaun message] The UA RBC) system which ge nerated this result transmit shaun reference range : <=2. The reference range was not used to interpr et this result as jackeline l/abnormal. [facility] AND [id number] 18:47:00 Test Item Value Reference Range Interpretation Comments UA WBC (test code = 1 See_Comment [Automa shaun message] The UA WBC) system which ge nerated this result transmit shaun reference range : <=5. The reference range was not used to interpr et this result as jackeline l/abnormal. [facility] AND [id number] 18:47:00 Test Item Value Reference Range Interpretation Comments UA Nitrite (test code Negative (10/14/15 1:47 = UA Nitrite) PM) [facility] AND [id number] 18:47:00 Test Item Value Reference Range Interpretation Comments UA Bili (test code = Negative *NA*(10/14/15 UA Bili) 1:47 PM) [facility] AND [id number] 18:47:00 Test Item Value Reference Range Interpretation Comments UA Leuk Est (test Negative (10/14/15 1:47 code = UA Leuk Est) PM) [facility] AND [id number] 18:47:00 Test Item Value Reference Range Interpretation Comments UA Blood (test code = Negative (10/14/15 1:47 UA Blood) PM) [facility] AND [id number] 18:47:00 Test Item Value Reference Range Interpretation Comments UA Urobilinogen (test code = UA <=1.0 mg/dL 0.1-1.0 Urobilinogen) [facility] AND [id number] 18:47:00 Test Item Value Reference Range Interpretation Comments UA Sq Epi (test code = UA Sq Epi) None Seen [facility] AND [id number] 18:47:00 Test Item Value Reference Range Interpretation Comments UA Ketones (test code = UA Negative mg/dL Ketones) [facility] AND [id number] 18:47:00 Test Item Value Reference Range Interpretation Comments UA Protein (test code = UA Negative mg/dL Protein) [facility] AND [id number] 18:47:00 Test Item Value Reference Range Interpretation Comments UA Spec Grav (test code = UA Spec Grav) 1.013 [facility] AND [id number] 18:47:00 Test Item Value Reference Range Interpretation Comments UA Turbidity (test code = Clear (10/14/15 1:47 UA Turbidity) PM) [facility] AND [id number] 18:47:00 Test Item Value Reference Range Interpretation Comments UA Glucose (test code = UA Negative mg/dL Glucose) [facility] AND [id number] 18:47:00 Test Item Value Reference Range Interpretation Comments UA pH (test code = UA pH) 6.0 5.0-8.0 [facility] AND [id number] 18:47:00 Test Item Value Reference Range Interpretation Comments UA Color (test code = Yellow *NA*(10/14/15 UA Color) 1:47 PM) [facility] AND [id number] 18:47:00 Test Item Value Reference Range Interpretation Comments UA Hyal Cast (test 8 See_Comment [Automat ed message] The code = UA Hyal Cast) system which generated this result transmit shaun reference range : <=2. The reference range was not used to interpr et this result as jackeline l/abnormal. [facility] AND [id number] 18:47:00 Test Item Value Reference Range Interpretation Comments UA Mucus (test code = UA Mucus) Few /LPF [facility] AND [id number] 18:47:00 Test Item Value Reference Range Interpretation Comments UA RBC (test code = no gt See_Comment [Automa shaun message] The UA RBC) system which ge nerated this result transmit shaun reference range : <=2. The reference range was not used to interpr et this result as jackeline l/abnormal. [facility] AND [id number] 18:47:00 Test Item Value Reference Range Interpretation Comments UA WBC (test code = 1 See_Comment [Automa shaun message] The UA WBC) system which ge nerated this result transmit shaun reference range : <=5. The reference range was not used to interpr et this result as jackeline l/abnormal. [facility] AND [id number] 18:47:00 Test Item Value Reference Range Interpretation Comments UA Nitrite (test code Negative (10/14/15 1:47 = UA Nitrite) PM) [facility] AND [id number] 18:47:00 Test Item Value Reference Range Interpretation Comments UA Bili (test code = Negative *NA*(10/14/15 UA Bili) 1:47 PM) [facility] AND [id number] 18:47:00 Test Item Value Reference Range Interpretation Comments UA Leuk Est (test Negative (10/14/15 1:47 code = UA Leuk Est) PM) [facility] AND [id number] 18:47:00 Test Item Value Reference Range Interpretation Comments UA Blood (test code = Negative (10/14/15 1:47 UA Blood) PM) [facility] AND [id number] 18:47:00 Test Item Value Reference Range Interpretation Comments UA Urobilinogen (test code = UA <=1.0 mg/dL 0.1-1.0 Urobilinogen) [facility] AND [id number] 18:47:00 Test Item Value Reference Range Interpretation Comments UA Sq Epi (test code = UA Sq Epi) None Seen [facility] AND [id number] 18:47:00 Test Item Value Reference Range Interpretation Comments UA Ketones (test code = UA Negative mg/dL Ketones) [facility] AND [id number] 18:47:00 Test Item Value Reference Range Interpretation Comments UA Protein (test code = UA Negative mg/dL Protein) [facility] AND [id number] 18:47:00 Test Item Value Reference Range Interpretation Comments UA Spec Grav (test code = UA Spec Grav) 1.013 [facility] AND [id number] 18:47:00 Test Item Value Reference Range Interpretation Comments UA Turbidity (test code = Clear (10/14/15 1:47 UA Turbidity) PM) [facility] AND [id number] 18:47:00 Test Item Value Reference Range Interpretation Comments UA Glucose (test code = UA Negative mg/dL Glucose) [facility] AND [id number] 18:47:00 Test Item Value Reference Range Interpretation Comments UA pH (test code = UA pH) 6.0 5.0-8.0 [facility] AND [id number] 18:47:00 Test Item Value Reference Range Interpretation Comments UA Color (test code = Yellow *NA*(10/14/15 UA Color) 1:47 PM) [facility] AND [id number] 18:47:00 Test Item Value Reference Range Interpretation Comments UA Hyal Cast (test 8 See_Comment [Automat ed message] The code = UA Hyal Cast) system which generated this result transmit shaun reference range : <=2. The reference range was not used to interpr et this result as jackeline l/abnormal. [facility] [id number] 18:47:00 Test Item Value Reference Range Interpretation Comments UA Mucus (test code = UA Mucus) Few /LPF [facility] AND [id number] 18:47:00 Test Item Value Reference Range Interpretation Comments UA RBC (test code = no gt See_Comment [Automa shaun message] The UA RBC) system which ge nerated this result transmit shaun reference range : <=2. The reference range was not used to interpr et this result as jackeline l/abnormal. [facility] [id number] 18:47:00 Test Item Value Reference Range Interpretation Comments UA WBC (test code = 1 See_Comment [Automa shaun message] The UA WBC) system which ge nerated this result transmit shaun reference range : <=5. The reference range was not used to interpr et this result as jackeline l/abnormal. [facility] AND [id number] 18:47:00 Test Item Value Reference Range Interpretation Comments UA Nitrite (test code Negative (10/14/15 1:47 = UA Nitrite) PM) [facility] AND [id number] 18:47:00 Test Item Value Reference Range Interpretation Comments UA Bili (test code = Negative *NA*(10/14/15 UA Bili) 1:47 PM) [facility] AND [id number] 18:47:00 Test Item Value Reference Range Interpretation Comments UA Leuk Est (test Negative (10/14/15 1:47 code = UA Leuk Est) PM) [facility] AND [id number] 18:47:00 Test Item Value Reference Range Interpretation Comments UA Blood (test code = Negative (10/14/15 1:47 UA Blood) PM) [facility] AND [id number] 18:47:00 Test Item Value Reference Range Interpretation Comments UA Urobilinogen (test code = UA <=1.0 mg/dL 0.1-1.0 Urobilinogen) [facility] AND [id number] 18:47:00 Test Item Value Reference Range Interpretation Comments UA Sq Epi (test code = UA Sq Epi) None Seen [facility] AND [id number] 18:47:00 Test Item Value Reference Range Interpretation Comments UA Ketones (test code = UA Negative mg/dL Ketones) [facility] AND [id number] 18:47:00 Test Item Value Reference Range Interpretation Comments UA Protein (test code = UA Negative mg/dL Protein) [facility] AND [id number] 18:47:00 Test Item Value Reference Range Interpretation Comments UA Spec Grav (test code = UA Spec Grav) 1.013 [facility] AND [id number] 18:47:00 Test Item Value Reference Range Interpretation Comments UA Turbidity (test code = Clear (10/14/15 1:47 UA Turbidity) PM) [facility] AND [id number] 18:47:00 Test Item Value Reference Range Interpretation Comments UA Glucose (test code = UA Negative mg/dL Glucose) [facility] AND [id number] 18:47:00 Test Item Value Reference Range Interpretation Comments UA pH (test code = UA pH) 6.0 5.0-8.0 [facility] AND [id number] 18:47:00 Test Item Value Reference Range Interpretation Comments UA Color (test code = Yellow *NA*(10/14/15 UA Color) 1:47 PM) [facility] AND [id number] 18:47:00 Test Item Value Reference Range Interpretation Comments UA Hyal Cast (test 8 See_Comment [Automat ed message] The code = UA Hyal Cast) system which generated this result transmit shaun reference range : <=2. The reference range was not used to interpr et this result as jackeline l/abnormal. [facility] [id number] 18:47:00 Test Item Value Reference Range Interpretation Comments UA Mucus (test code = UA Mucus) Few /LPF [facility] [id number] 18:47:00 Test Item Value Reference Range Interpretation Comments UA RBC (test code = no gt See_Comment [Automa shaun message] The UA RBC) system which ge nerated this result transmit shaun reference range : <=2. The reference range was not used to interpr et this result as ajckeline l/abnormal. [facility] AND [id number] 18:47:00 Test Item Value Reference Range Interpretation Comments UA WBC (test code = 1 See_Comment [Automa shaun message] The UA WBC) system which ge nerated this result transmit shaun reference range : <=5. The reference range was not used to interpr et this result as jackeline l/abnormal. [facility] AND [id number] 18:47:00 Test Item Value Reference Range Interpretation Comments UA Nitrite (test code Negative (10/14/15 1:47 = UA Nitrite) PM) [facility] AND [id number] 18:47:00 Test Item Value Reference Range Interpretation Comments UA Bili (test code = Negative *NA*(10/14/15 UA Bili) 1:47 PM) [facility] AND [id number] 18:47:00 Test Item Value Reference Range Interpretation Comments UA Leuk Est (test Negative (10/14/15 1:47 code = UA Leuk Est) PM) [facility] AND [id number] 18:47:00 Test Item Value Reference Range Interpretation Comments UA Blood (test code = Negative (10/14/15 1:47 UA Blood) PM) [facility] AND [id number] 18:47:00 Test Item Value Reference Range Interpretation Comments UA Urobilinogen (test code = UA <=1.0 mg/dL 0.1-1.0 Urobilinogen) [facility] [id number] 18:47:00 Test Item Value Reference Range Interpretation Comments UA Sq Epi (test code = UA Sq Epi) None Seen [facility] AND [id number] 18:47:00 Test Item Value Reference Range Interpretation Comments UA Ketones (test code = UA Negative mg/dL Ketones) [facility] AND [id number] 18:47:00 Test Item Value Reference Range Interpretation Comments UA Protein (test code = UA Negative mg/dL Protein) [facility] AND [id number] 18:47:00 Test Item Value Reference Range Interpretation Comments UA Spec Grav (test code = UA Spec Grav) 1.013 [facility] AND [id number] 18:47:00 Test Item Value Reference Range Interpretation Comments UA Turbidity (test code = Clear (10/14/15 1:47 UA Turbidity) PM) [facility] AND [id number] 18:47:00 Test Item Value Reference Range Interpretation Comments UA Glucose (test code = UA Negative mg/dL Glucose) [facility] AND [id number] 18:47:00 Test Item Value Reference Range Interpretation Comments UA pH (test code = UA pH) 6.0 5.0-8.0 [facility] AND [id number] 18:47:00 Test Item Value Reference Range Interpretation Comments UA Color (test code = Yellow *NA*(10/14/15 UA Color) 1:47 PM) [facility] AND [id number] 18:47:00 Test Item Value Reference Range Interpretation Comments UA Hyal Cast (test 8 See_Comment [Automat ed message] The code = UA Hyal Cast) system which generated this result transmit shaun reference range : <=2. The reference range was not used to interpr et this result as jackeline l/abnormal. [facility] AND [id number] 18:47:00 Test Item Value Reference Range Interpretation Comments UA Mucus (test code = UA Mucus) Few /LPF [facility] AND [id number] 18:47:00 Test Item Value Reference Range Interpretation Comments UA RBC (test code = no gt See_Comment [Automa shaun message] The UA RBC) system which ge nerated this result transmit shaun reference range : <=2. The reference range was not used to interpr et this result as jackeline l/abnormal. [facility] AND [id number] 18:47:00 Test Item Value Reference Range Interpretation Comments UA WBC (test code = 1 See_Comment [Automa shaun message] The UA WBC) system which ge nerated this result transmit shaun reference range : <=5. The reference range was not used to interpr et this result as jackeline l/abnormal. [facility] AND [id number] 18:47:00 Test Item Value Reference Range Interpretation Comments UA Nitrite (test code Negative (10/14/15 1:47 = UA Nitrite) PM) [facility] AND [id number] 18:47:00 Test Item Value Reference Range Interpretation Comments UA Bili (test code = Negative *NA*(10/14/15 UA Bili) 1:47 PM) [facility] AND [id number] 18:47:00 Test Item Value Reference Range Interpretation Comments UA Leuk Est (test Negative (10/14/15 1:47 code = UA Leuk Est) PM) [facility] AND [id number] 18:47:00 Test Item Value Reference Range Interpretation Comments UA Blood (test code = Negative (10/14/15 1:47 UA Blood) PM) [facility] AND [id number] 18:47:00 Test Item Value Reference Range Interpretation Comments UA Urobilinogen (test code = UA <=1.0 mg/dL 0.1-1.0 Urobilinogen) [facility] AND [id number] 18:47:00 Test Item Value Reference Range Interpretation Comments UA Sq Epi (test code = UA Sq Epi) None Seen [facility] AND [id number] 18:47:00 Test Item Value Reference Range Interpretation Comments UA Ketones (test code = UA Negative mg/dL Ketones) [facility] AND [id number] 18:47:00 Test Item Value Reference Range Interpretation Comments UA Protein (test code = UA Negative mg/dL Protein) [facility] AND [id number] 18:47:00 Test Item Value Reference Range Interpretation Comments UA Spec Grav (test code = UA Spec Grav) 1.013 [facility] AND [id number] 18:47:00 Test Item Value Reference Range Interpretation Comments UA Turbidity (test code = Clear (10/14/15 1:47 UA Turbidity) PM) [facility] AND [id number] 18:47:00 Test Item Value Reference Range Interpretation Comments UA Glucose (test code = UA Negative mg/dL Glucose) [facility] AND [id number] 18:47:00 Test Item Value Reference Range Interpretation Comments UA pH (test code = UA pH) 6.0 5.0-8.0 [facility] AND [id number] 18:47:00 Test Item Value Reference Range Interpretation Comments UA Color (test code = Yellow *NA*(10/14/15 UA Color) 1:47 PM) [facility] AND [id number] 18:47:00 Test Item Value Reference Range Interpretation Comments UA Hyal Cast (test 8 See_Comment [Automat ed message] The code = UA Hyal Cast) system which generated this result transmit shaun reference range : <=2. The reference range was not used to interpr et this result as jackeline l/abnormal. [facility] AND [id number] 18:47:00 Test Item Value Reference Range Interpretation Comments UA Mucus (test code = UA Mucus) Few /LPF [facility] AND [id number] 18:47:00 Test Item Value Reference Range Interpretation Comments UA RBC (test code = no gt See_Comment [Automa shaun message] The UA RBC) system which ge nerated this result transmit shaun reference range : <=2. The reference range was not used to interpr et this result as jackeline l/abnormal. [facility] AND [id number] 18:47:00 Test Item Value Reference Range Interpretation Comments UA WBC (test code = 1 See_Comment [Automa shaun message] The UA WBC) system which ge nerated this result transmit shaun reference range : <=5. The reference range was not used to interpr et this result as jackeline l/abnormal. [facility] AND [id number] 18:47:00 Test Item Value Reference Range Interpretation Comments UA Nitrite (test code Negative (10/14/15 1:47 = UA Nitrite) PM) [facility] AND [id number] 18:47:00 Test Item Value Reference Range Interpretation Comments UA Bili (test code = Negative *NA*(10/14/15 UA Bili) 1:47 PM) [facility] AND [id number] 18:47:00 Test Item Value Reference Range Interpretation Comments UA Leuk Est (test Negative (10/14/15 1:47 code = UA Leuk Est) PM) [facility] AND [id number] 18:47:00 Test Item Value Reference Range Interpretation Comments UA Blood (test code = Negative (10/14/15 1:47 UA Blood) PM) [facility] AND [id number] 18:47:00 Test Item Value Reference Range Interpretation Comments UA Urobilinogen (test code = UA <=1.0 mg/dL 0.1-1.0 Urobilinogen) [facility] AND [id number] 18:47:00 Test Item Value Reference Range Interpretation Comments UA Sq Epi (test code = UA Sq Epi) None Seen [facility] AND [id number] 18:47:00 Test Item Value Reference Range Interpretation Comments UA Ketones (test code = UA Negative mg/dL Ketones) [facility] AND [id number] 18:47:00 Test Item Value Reference Range Interpretation Comments UA Protein (test code = UA Negative mg/dL Protein) [facility] AND [id number] 18:47:00 Test Item Value Reference Range Interpretation Comments UA Spec Grav (test code = UA Spec Grav) 1.013 [facility] AND [id number] 18:47:00 Test Item Value Reference Range Interpretation Comments UA Turbidity (test code = Clear (10/14/15 1:47 UA Turbidity) PM) [facility] [facility] [id number] 18:47:00 Test Item Value Reference Range Interpretation Comments UA Glucose (test code = UA Negative mg/dL Glucose) [facility] AND [id number] 18:47:00 Test Item Value Reference Range Interpretation Comments UA pH (test code = UA pH) 6.0 5.0-8.0 [facility] AND [id number] 18:47:00 Test Item Value Reference Range Interpretation Comments UA Color (test code = Yellow *NA*(10/14/15 UA Color) 1:47 PM) [facility] AND [id number] 18:47:00 Test Item Value Reference Range Interpretation Comments UA Hyal Cast (test 8 See_Comment [Automat ed message] The code = UA Hyal Cast) system which generated this result transmit shaun reference range : <=2. The reference range was not used to interpr et this result as jackeline l/abnormal. [facility] AND [id number] 18:47:00 Test Item Value Reference Range Interpretation Comments UA Mucus (test code = UA Mucus) Few /LPF [facility] AND [id number] 18:47:00 Test Item Value Reference Range Interpretation Comments UA RBC (test code = no gt See_Comment [Automa shaun message] The UA RBC) system which ge nerated this result transmit shaun reference range : <=2. The reference range was not used to interpr et this result as jackeline l/abnormal. [facility] AND [id number] 18:47:00 Test Item Value Reference Range Interpretation Comments UA WBC (test code = 1 See_Comment [Automa shaun message] The UA WBC) system which ge nerated this result transmit shaun reference range : <=5. The reference range was not used to interpr et this result as jackeline l/abnormal. [facility] AND [id number] 18:47:00 Test Item Value Reference Range Interpretation Comments UA Nitrite (test code Negative (10/14/15 1:47 = UA Nitrite) PM) [facility] AND [id number] 18:47:00 Test Item Value Reference Range Interpretation Comments UA Bili (test code = Negative *NA*(10/14/15 UA Bili) 1:47 PM) [facility] AND [id number] 18:47:00 Test Item Value Reference Range Interpretation Comments UA Leuk Est (test Negative (10/14/15 1:47 code = UA Leuk Est) PM) [facility] AND [id number] 18:47:00 Test Item Value Reference Range Interpretation Comments UA Blood (test code = Negative (10/14/15 1:47 UA Blood) PM) [facility] AND [id number] 18:47:00 Test Item Value Reference Range Interpretation Comments UA Urobilinogen (test code = UA <=1.0 mg/dL 0.1-1.0 Urobilinogen) [facility] AND [id number] 18:47:00 Test Item Value Reference Range Interpretation Comments UA Sq Epi (test code = UA Sq Epi) None Seen [facility] AND [id number] 18:47:00 Test Item Value Reference Range Interpretation Comments UA Ketones (test code = UA Negative mg/dL Ketones) [facility] AND [id number] 18:47:00 Test Item Value Reference Range Interpretation Comments UA Protein (test code = UA Negative mg/dL Protein) [facility] AND [id number] 18:47:00 Test Item Value Reference Range Interpretation Comments UA Spec Grav (test code = UA Spec Grav) 1.013 [facility] AND [id number] 18:47:00 Test Item Value Reference Range Interpretation Comments UA Turbidity (test code = Clear (10/14/15 1:47 UA Turbidity) PM) [facility] AND [id number] 18:47:00 Test Item Value Reference Range Interpretation Comments UA Glucose (test code = UA Negative mg/dL Glucose) [facility] AND [id number] 18:47:00 Test Item Value Reference Range Interpretation Comments UA pH (test code = UA pH) 6.0 5.0-8.0 [facility] AND [id number] 18:47:00 Test Item Value Reference Range Interpretation Comments UA Color (test code = Yellow *NA*(10/14/15 UA Color) 1:47 PM) [facility] AND [id number] 18:47:00 Test Item Value Reference Range Interpretation Comments UA Hyal Cast (test 8 See_Comment [Automat ed message] The code = UA Hyal Cast) system which generated this result transmit shaun reference range : <=2. The reference range was not used to interpr et this result as jackeline l/abnormal. [facility] AND [id number] 18:47:00 Test Item Value Reference Range Interpretation Comments UA Mucus (test code = UA Mucus) Few /LPF [facility] AND [id number] 18:47:00 Test Item Value Reference Range Interpretation Comments UA RBC (test code = no gt See_Comment [Automa shaun message] The UA RBC) system which ge nerated this result transmit shaun reference range : <=2. The reference range was not used to interpr et this result as jackeline l/abnormal. [facility] AND [id number] 18:47:00 Test Item Value Reference Range Interpretation Comments UA WBC (test code = 1 See_Comment [Automa shaun message] The UA WBC) system which ge nerated this result transmit shaun reference range : <=5. The reference range was not used to interpr et this result as jackeline l/abnormal. [facility] AND [id number] 18:47:00 Test Item Value Reference Range Interpretation Comments UA Nitrite (test code Negative (10/14/15 1:47 = UA Nitrite) PM) [facility] AND [id number] 18:47:00 Test Item Value Reference Range Interpretation Comments UA Bili (test code = Negative *NA*(10/14/15 UA Bili) 1:47 PM) [facility] AND [id number] 18:47:00 Test Item Value Reference Range Interpretation Comments UA Leuk Est (test Negative (10/14/15 1:47 code = UA Leuk Est) PM) [facility] AND [id number] 18:47:00 Test Item Value Reference Range Interpretation Comments UA Blood (test code = Negative (10/14/15 1:47 UA Blood) PM) [facility] AND [id number] 18:47:00 Test Item Value Reference Range Interpretation Comments UA Urobilinogen (test code = UA <=1.0 mg/dL 0.1-1.0 Urobilinogen) [facility] AND [id number] 18:47:00 Test Item Value Reference Range Interpretation Comments UA Sq Epi (test code = UA Sq Epi) None Seen [facility] AND [id number] 18:47:00 Test Item Value Reference Range Interpretation Comments UA Ketones (test code = UA Negative mg/dL Ketones) [facility] AND [id number] 18:47:00 Test Item Value Reference Range Interpretation Comments UA Protein (test code = UA Negative mg/dL Protein) [facility] AND [id number] 18:47:00 Test Item Value Reference Range Interpretation Comments UA Spec Grav (test code = UA Spec Grav) 1.013 [facility] AND [id number] 18:47:00 Test Item Value Reference Range Interpretation Comments UA Turbidity (test code = Clear (10/14/15 1:47 UA Turbidity) PM) [facility] [id number] 18:47:00 Test Item Value Reference Range Interpretation Comments UA Glucose (test code = UA Negative mg/dL Glucose) [facility] AND [id number] 18:47:00 Test Item Value Reference Range Interpretation Comments UA pH (test code = UA pH) 6.0 5.0-8.0 [facility] AND [id number] 18:47:00 Test Item Value Reference Range Interpretation Comments UA Color (test code = Yellow *NA*(10/14/15 UA Color) 1:47 PM) [facility] AND [id number] 18:47:00 Test Item Value Reference Range Interpretation Comments UA Hyal Cast (test 8 See_Comment [Automat ed message] The code = UA Hyal Cast) system which generated this result transmit shaun reference range : <=2. The reference range was not used to interpr et this result as jackeline l/abnormal. [facility] AND [id number] 18:47:00 Test Item Value Reference Range Interpretation Comments UA Mucus (test code = UA Mucus) Few /LPF [facility] AND [id number] 18:47:00 Test Item Value Reference Range Interpretation Comments UA RBC (test code = no gt See_Comment [Automa shaun message] The UA RBC) system which ge nerated this result transmit shaun reference range : <=2. The reference range was not used to interpr et this result as jackeline l/abnormal. [facility] AND [id number] 18:47:00 Test Item Value Reference Range Interpretation Comments UA WBC (test code = 1 See_Comment [Automa shaun message] The UA WBC) system which ge nerated this result transmit shaun reference range : <=5. The reference range was not used to interpr et this result as jackeline l/abnormal. [facility] [id number] 18:47:00 Test Item Value Reference Range Interpretation Comments UA Nitrite (test code Negative (10/14/15 1:47 = UA Nitrite) PM) [facility] AND [id number] 18:47:00 Test Item Value Reference Range Interpretation Comments UA Bili (test code = Negative *NA*(7/17/16 UA Bili) 1:47 PM) [facility] AND [id number] 18:47:00 Test Item Value Reference Range Interpretation Comments UA Leuk Est (test Negative (10/14/15 1:47 code = UA Leuk Est) PM) [facility] AND [id number] 18:47:00 Test Item Value Reference Range Interpretation Comments UA Blood (test code = Negative (10/14/15 1:47 UA Blood) PM) [facility] AND [id number] 18:47:00 Test Item Value Reference Range Interpretation Comments UA Urobilinogen (test code = UA <=1.0 mg/dL 0.1-1.0 Urobilinogen) [facility] AND [id number] 18:47:00 Test Item Value Reference Range Interpretation Comments UA Sq Epi (test code = UA Sq Epi) None Seen [facility] AND [id number] 18:47:00 Test Item Value Reference Range Interpretation Comments UA Ketones (test code = UA Negative mg/dL Ketones) [facility] AND [id number] 18:47:00 Test Item Value Reference Range Interpretation Comments UA Protein (test code = UA Negative mg/dL Protein) [facility] AND [id number] 18:47:00 Test Item Value Reference Range Interpretation Comments UA Spec Grav (test code = UA Spec Grav) 1.013 [facility] AND [id number] 18:47:00 Test Item Value Reference Range Interpretation Comments UA Turbidity (test code = Clear (10/14/15 1:47 UA Turbidity) PM) [facility] AND [id number] 18:47:00 Test Item Value Reference Range Interpretation Comments UA Glucose (test code = UA Negative mg/dL Glucose) [facility] AND [id number] 18:47:00 Test Item Value Reference Range Interpretation Comments UA pH (test code = UA pH) 6.0 5.0-8.0 [facility] AND [id number] 18:47:00 Test Item Value Reference Range Interpretation Comments UA Color (test code = Yellow *NA*(10/14/15 UA Color) 1:47 PM) [facility] AND [id number] 18:47:00 Test Item Value Reference Range Interpretation Comments UA Hyal Cast (test 8 See_Comment [Automat ed message] The code = UA Hyal Cast) system which generated this result transmit shaun reference range : <=2. The reference range was not used to interpr et this result as jackeline l/abnormal. [facility] AND [id number] 18:47:00 Test Item Value Reference Range Interpretation Comments UA Mucus (test code = UA Mucus) Few /LPF [facility] AND [id number] 18:47:00 Test Item Value Reference Range Interpretation Comments UA RBC (test code = no gt See_Comment [Automa shaun message] The UA RBC) system which ge nerated this result transmit shaun reference range : <=2. The reference range was not used to interpr et this result as jackeline l/abnormal. [facility] AND [id number] 18:47:00 Test Item Value Reference Range Interpretation Comments UA WBC (test code = 1 See_Comment [Automa shaun message] The UA WBC) system which ge nerated this result transmit shaun reference range : <=5. The reference range was not used to interpr et this result as jackeline l/abnormal. [facility] AND [id number] 18:47:00 Test Item Value Reference Range Interpretation Comments UA Nitrite (test code Negative (10/14/15 1:47 = UA Nitrite) PM) [facility] AND [id number] 18:47:00 Test Item Value Reference Range Interpretation Comments UA Bili (test code = Negative *NA*(10/14/15 UA Bili) 1:47 PM) [facility] AND [id number] 18:47:00 Test Item Value Reference Range Interpretation Comments UA Leuk Est (test Negative (10/14/15 1:47 code = UA Leuk Est) PM) [facility] AND [id number] 18:47:00 Test Item Value Reference Range Interpretation Comments UA Blood (test code = Negative (10/14/15 1:47 UA Blood) PM) [facility] AND [id number] 18:47:00 Test Item Value Reference Range Interpretation Comments UA Urobilinogen (test code = UA <=1.0 mg/dL 0.1-1.0 Urobilinogen) [facility] AND [id number] 18:47:00 Test Item Value Reference Range Interpretation Comments UA Sq Epi (test code = UA Sq Epi) None Seen [facility] AND [id number] 18:47:00 Test Item Value Reference Range Interpretation Comments UA Ketones (test code = UA Negative mg/dL Ketones) [facility] AND [id number] 18:47:00 Test Item Value Reference Range Interpretation Comments UA Protein (test code = UA Negative mg/dL Protein) [facility] AND [id number] 18:47:00 Test Item Value Reference Range Interpretation Comments UA Spec Grav (test code = UA Spec Grav) 1.013 [facility] AND [id number] 18:47:00 Test Item Value Reference Range Interpretation Comments UA Turbidity (test code = Clear (10/14/15 1:47 UA Turbidity) PM) [facility] AND [id number] 18:47:00 Test Item Value Reference Range Interpretation Comments UA Glucose (test code = UA Negative mg/dL Glucose) [facility] AND [id number] 18:47:00 Test Item Value Reference Range Interpretation Comments UA pH (test code = UA pH) 6.0 5.0-8.0 [facility] AND [id number] 18:47:00 Test Item Value Reference Range Interpretation Comments UA Color (test code = Yellow *NA*(10/14/15 UA Color) 1:47 PM) [facility] AND [id number] 18:47:00 Test Item Value Reference Range Interpretation Comments UA Hyal Cast (test 8 See_Comment [Automat ed message] The code = UA Hyal Cast) system which generated this result transmit shaun reference range : <=2. The reference range was not used to interpr et this result as jackeline l/abnormal. [facility] AND [id number] 18:47:00 Test Item Value Reference Range Interpretation Comments UA Mucus (test code = UA Mucus) Few /LPF [facility] AND [id number] 18:47:00 Test Item Value Reference Range Interpretation Comments UA RBC (test code = no gt See_Comment [Automa shaun message] The UA RBC) system which ge nerated this result transmit shaun reference range : <=2. The reference range was not used to interpr et this result as jackeline l/abnormal. [facility] AND [id number] 18:47:00 Test Item Value Reference Range Interpretation Comments UA WBC (test code = 1 See_Comment [Automa shaun message] The UA WBC) system which ge nerated this result transmit shaun reference range : <=5. The reference range was not used to interpr et this result as jackeline l/abnormal. [facility] AND [id number] 18:47:00 Test Item Value Reference Range Interpretation Comments UA Nitrite (test code Negative (10/14/15 1:47 = UA Nitrite) PM) [facility] AND [id number] 18:47:00 Test Item Value Reference Range Interpretation Comments UA Bili (test code = Negative *NA*(10/14/15 UA Bili) 1:47 PM) [facility] AND [id number] 18:47:00 Test Item Value Reference Range Interpretation Comments UA Leuk Est (test Negative (10/14/15 1:47 code = UA Leuk Est) PM) [facility] AND [id number] 18:47:00 Test Item Value Reference Range Interpretation Comments UA Blood (test code = Negative (10/14/15 1:47 UA Blood) PM) [facility] AND [id number] 18:47:00 Test Item Value Reference Range Interpretation Comments UA Urobilinogen (test code = UA <=1.0 mg/dL 0.1-1.0 Urobilinogen) [facility] AND [id number] 18:47:00 Test Item Value Reference Range Interpretation Comments UA Sq Epi (test code = UA Sq Epi) None Seen [facility] AND [id number] 18:47:00 Test Item Value Reference Range Interpretation Comments UA Ketones (test code = UA Negative mg/dL Ketones) [facility] AND [id number] 18:47:00 Test Item Value Reference Range Interpretation Comments UA Protein (test code = UA Negative mg/dL Protein) [facility] AND [id number] 18:47:00 Test Item Value Reference Range Interpretation Comments UA Spec Grav (test code = UA Spec Grav) 1.013 [facility] AND [id number] 18:47:00 Test Item Value Reference Range Interpretation Comments UA Turbidity (test code = Clear (10/14/15 1:47 UA Turbidity) PM) [facility]ana[facility] AND [id number] 18:47:00 Test Item Value Reference Range Interpretation Comments UA Glucose (test code = UA Negative mg/dL Glucose) [facility] AND [id number] 18:47:00 Test Item Value Reference Range Interpretation Comments UA pH (test code = UA pH) 6.0 5.0-8.0 [facility] AND [id number] 18:47:00 Test Item Value Reference Range Interpretation Comments UA Color (test code = Yellow *NA*(10/14/15 UA Color) 1:47 PM) [facility] AND [id number] 18:47:00 Test Item Value Reference Range Interpretation Comments UA Hyal Cast (test 8 See_Comment [Automat ed message] The code = UA Hyal Cast) system which generated this result transmit shaun reference range : <=2. The reference range was not used to interpr et this result as jackeline l/abnormal. [facility] AND [id number] 18:47:00 Test Item Value Reference Range Interpretation Comments UA Mucus (test code = UA Mucus) Few /LPF [facility] AND [id number] 18:47:00 Test Item Value Reference Range Interpretation Comments UA RBC (test code = no gt See_Comment [Automa shaun message] The UA RBC) system which ge nerated this result transmit shaun reference range : <=2. The reference range was not used to interpr et this result as jackeline l/abnormal. [facility] AND [id number] 18:47:00 Test Item Value Reference Range Interpretation Comments UA WBC (test code = 1 See_Comment [Automa shaun message] The UA WBC) system which ge nerated this result transmit shaun reference range : <=5. The reference range was not used to interpr et this result as jackeline l/abnormal. [facility] AND [id number] 18:47:00 Test Item Value Reference Range Interpretation Comments UA Nitrite (test code Negative (10/14/15 1:47 = UA Nitrite) PM) [facility] AND [id number] 18:47:00 Test Item Value Reference Range Interpretation Comments UA Bili (test code = Negative *NA*(10/14/15 UA Bili) 1:47 PM) [facility] [id number] 18:47:00 Test Item Value Reference Range Interpretation Comments UA Leuk Est (test Negative (10/14/15 1:47 code = UA Leuk Est) PM) [facility] [id number] 18:47:00 Test Item Value Reference Range Interpretation Comments UA Blood (test code = Negative (10/14/15 1:47 UA Blood) PM) [facility] AND [id number] 18:47:00 Test Item Value Reference Range Interpretation Comments UA Urobilinogen (test code = UA <=1.0 mg/dL 0.1-1.0 Urobilinogen) [facility] AND [id number] 18:47:00 Test Item Value Reference Range Interpretation Comments UA Sq Epi (test code = UA Sq Epi) None Seen [facility] AND [id number] 18:47:00 Test Item Value Reference Range Interpretation Comments UA Ketones (test code = UA Negative mg/dL Ketones) [facility] AND [id number] 18:47:00 Test Item Value Reference Range Interpretation Comments UA Protein (test code = UA Negative mg/dL Protein) [facility] AND [id number] 18:47:00 Test Item Value Reference Range Interpretation Comments UA Spec Grav (test code = UA Spec Grav) 1.013 [facility] AND [id number] 18:47:00 Test Item Value Reference Range Interpretation Comments UA Turbidity (test code = Clear (10/14/15 1:47 UA Turbidity) PM) [facility] AND [id number] 18:47:00 Test Item Value Reference Range Interpretation Comments UA Glucose (test code = UA Negative mg/dL Glucose) [facility] AND [id number] 18:47:00 Test Item Value Reference Range Interpretation Comments UA pH (test code = UA pH) 6.0 5.0-8.0 [facility] AND [id number] 18:47:00 Test Item Value Reference Range Interpretation Comments UA Color (test code = Yellow *NA*(10/14/15 UA Color) 1:47 PM) [facility] AND [id number] 18:47:00 Test Item Value Reference Range Interpretation Comments UA Hyal Cast (test 8 See_Comment [Automat ed message] The code = UA Hyal Cast) system which generated this result transmit shaun reference range : <=2. The reference range was not used to interpr et this result as jackeline l/abnormal. [facility] AND [id number] 18:47:00 Test Item Value Reference Range Interpretation Comments UA Mucus (test code = UA Mucus) Few /LPF [facility] AND [id number] 18:47:00 Test Item Value Reference Range Interpretation Comments UA RBC (test code = no gt See_Comment [Automa shaun message] The UA RBC) system which ge nerated this result transmit shaun reference range : <=2. The reference range was not used to interpr et this result as jackeline l/abnormal. [facility] AND [id number] 18:47:00 Test Item Value Reference Range Interpretation Comments UA WBC (test code = 1 See_Comment [Automa shaun message] The UA WBC) system which ge nerated this result transmit shaun reference range : <=5. The reference range was not used to interpr et this result as jackeline l/abnormal. [facility] AND [id number] 18:47:00 Test Item Value Reference Range Interpretation Comments UA Nitrite (test code Negative (10/14/15 1:47 = UA Nitrite) PM) [facility] AND [id number] 18:47:00 Test Item Value Reference Range Interpretation Comments UA Urobilinogen (test code = UA <=1.0 mg/dL 0.1-1.0 Urobilinogen) [facility] AND [id number] 18:47:00 Test Item Value Reference Range Interpretation Comments UA Sq Epi (test code = UA Sq Epi) None Seen [facility] AND [id number] 18:47:00 Test Item Value Reference Range Interpretation Comments UA Ketones (test code = UA Negative mg/dL Ketones) [facility] AND [id number] 18:47:00 Test Item Value Reference Range Interpretation Comments UA Protein (test code = UA Negative mg/dL Protein) [facility] AND [id number] 18:47:00 Test Item Value Reference Range Interpretation Comments UA Spec Grav (test code = UA Spec Grav) 1.013 [facility] AND [id number] 18:47:00 Test Item Value Reference Range Interpretation Comments UA Turbidity (test code = Clear (10/14/15 1:47 UA Turbidity) PM) [facility] [facility] AND [id number] 18:47:00 Test Item Value Reference Range Interpretation Comments UA Glucose (test code = UA Negative mg/dL Glucose) [facility] AND [id number] 18:47:00 Test Item Value Reference Range Interpretation Comments UA Bili (test code = Negative *NA*(10/14/15 UA Bili) 1:47 PM) [facility] AND [id number] 18:47:00 Test Item Value Reference Range Interpretation Comments UA pH (test code = UA pH) 6.0 5.0-8.0 [facility] AND [id number] 18:47:00 Test Item Value Reference Range Interpretation Comments UA Color (test code = Yellow *NA*(10/14/15 UA Color) 1:47 PM) [facility] AND [id number] 18:47:00 Test Item Value Reference Range Interpretation Comments UA Hyal Cast (test 8 See_Comment [Automat ed message] The code = UA Hyal Cast) system which generated this result transmit shaun reference range : <=2. The reference range was not used to interpr et this result as jackeline l/abnormal. [facility] AND [id number] 18:47:00 Test Item Value Reference Range Interpretation Comments UA Mucus (test code = UA Mucus) Few /LPF [facility] AND [id number] 18:47:00 Test Item Value Reference Range Interpretation Comments UA RBC (test code = no gt See_Comment [Automa shaun message] The UA RBC) system which ge nerated this result transmit shaun reference range : <=2. The reference range was not used to interpr et this result as jackeline l/abnormal. [facility] AND [id number] 18:47:00 Test Item Value Reference Range Interpretation Comments UA WBC (test code = 1 See_Comment [Automa shaun message] The UA WBC) system which ge nerated this result transmit shaun reference range : <=5. The reference range was not used to interpr et this result as jackeline l/abnormal. [facility] AND [id number] 18:47:00 Test Item Value Reference Range Interpretation Comments UA Nitrite (test code Negative (10/14/15 1:47 = UA Nitrite) PM) [facility] AND [id number] 18:47:00 Test Item Value Reference Range Interpretation Comments UA Bili (test code = Negative *NA*(10/14/15 UA Bili) 1:47 PM) [facility] AND [id number] 18:47:00 Test Item Value Reference Range Interpretation Comments UA Leuk Est (test Negative (10/14/15 1:47 code = UA Leuk Est) PM) [facility] AND [id number] 18:47:00 Test Item Value Reference Range Interpretation Comments UA Blood (test code = Negative (10/14/15 1:47 UA Blood) PM) [facility] AND [id number] 18:47:00 Test Item Value Reference Range Interpretation Comments UA Leuk Est (test Negative (10/14/15 1:47 code = UA Leuk Est) PM) [facility] AND [id number] 18:47:00 Test Item Value Reference Range Interpretation Comments UA Blood (test code = Negative (10/14/15 1:47 UA Blood) PM) [facility] AND [id number] 18:47:00 Test Item Value Reference Range Interpretation Comments UA Urobilinogen (test code = UA <=1.0 mg/dL 0.1-1.0 Urobilinogen) [facility] AND [id number] 18:47:00 Test Item Value Reference Range Interpretation Comments UA Sq Epi (test code = UA Sq Epi) None Seen [facility] AND [id number] 18:47:00 Test Item Value Reference Range Interpretation Comments UA Ketones (test code = UA Negative mg/dL Ketones) [facility] AND [id number] 18:47:00 Test Item Value Reference Range Interpretation Comments UA Protein (test code = UA Negative mg/dL Protein) [facility] AND [id number] 18:47:00 Test Item Value Reference Range Interpretation Comments UA Spec Grav (test code = UA Spec Grav) 1.013 [facility] AND [id number] 18:47:00 Test Item Value Reference Range Interpretation Comments UA Turbidity (test code = Clear (10/14/15 1:47 UA Turbidity) PM) [facility] AND [id number] 18:47:00 Test Item Value Reference Range Interpretation Comments UA Glucose (test code = UA Negative mg/dL Glucose) [facility] AND [id number] 18:47:00 Test Item Value Reference Range Interpretation Comments UA pH (test code = UA pH) 6.0 5.0-8.0 [facility] AND [id number] 18:47:00 Test Item Value Reference Range Interpretation Comments UA Color (test code = Yellow *NA*(10/14/15 UA Color) 1:47 PM) [facility] AND [id number] 18:47:00 Test Item Value Reference Range Interpretation Comments UA Hyal Cast (test 8 See_Comment [Automat ed message] The code = UA Hyal Cast) system which generated this result transmit shaun reference range : <=2. The reference range was not used to interpr et this result as jackeline l/abnormal. [facility] AND [id number] 18:47:00 Test Item Value Reference Range Interpretation Comments UA Mucus (test code = UA Mucus) Few /LPF [facility] AND [id number] 18:47:00 Test Item Value Reference Range Interpretation Comments UA RBC (test code = no gt See_Comment [Automa shaun message] The UA RBC) system which ge nerated this result transmit shaun reference range : <=2. The reference range was not used to interpr et this result as jackeline l/abnormal. [facility] AND [id number] 18:47:00 Test Item Value Reference Range Interpretation Comments UA WBC (test code = 1 See_Comment [Automa shaun message] The UA WBC) system which ge nerated this result transmit shaun reference range : <=5. The reference range was not used to interpr et this result as jackeline l/abnormal. [facility] AND [id number] 18:47:00 Test Item Value Reference Range Interpretation Comments UA Nitrite (test code Negative (10/14/15 1:47 = UA Nitrite) PM) [facility] AND [id number] 18:47:00 Test Item Value Reference Range Interpretation Comments UA Bili (test code = Negative *NA*(10/14/15 UA Bili) 1:47 PM) [facility] AND [id number] 18:47:00 Test Item Value Reference Range Interpretation Comments UA Leuk Est (test Negative (10/14/15 1:47 code = UA Leuk Est) PM) [facility] AND [id number] 18:47:00 Test Item Value Reference Range Interpretation Comments UA Blood (test code = Negative (10/14/15 1:47 UA Blood) PM) [facility] AND [id number] 18:47:00 Test Item Value Reference Range Interpretation Comments UA Urobilinogen (test code = UA <=1.0 mg/dL 0.1-1.0 Urobilinogen) [facility] AND [id number] 18:47:00 Test Item Value Reference Range Interpretation Comments UA Sq Epi (test code = UA Sq Epi) None Seen [facility] AND [id number] 18:47:00 Test Item Value Reference Range Interpretation Comments UA Ketones (test code = UA Negative mg/dL Ketones) [facility] AND [id number] 18:47:00 Test Item Value Reference Range Interpretation Comments UA Protein (test code = UA Negative mg/dL Protein) [facility] AND [id number] 18:47:00 Test Item Value Reference Range Interpretation Comments UA Spec Grav (test code = UA Spec Grav) 1.013 [facility] AND [id number] 18:47:00 Test Item Value Reference Range Interpretation Comments UA Turbidity (test code = Clear (10/14/15 1:47 UA Turbidity) PM) [facility] AND [id number] 18:47:00 Test Item Value Reference Range Interpretation Comments UA Glucose (test code = UA Negative mg/dL Glucose) [facility] AND [id number] 18:47:00 Test Item Value Reference Range Interpretation Comments UA pH (test code = UA pH) 6.0 5.0-8.0 [facility] AND [id number] 18:47:00 Test Item Value Reference Range Interpretation Comments UA Color (test code = Yellow *NA*(10/14/15 UA Color) 1:47 PM) [facility] AND [id number] 18:47:00 Test Item Value Reference Range Interpretation Comments UA Hyal Cast (test 8 See_Comment [Automat ed message] The code = UA Hyal Cast) system which generated this result transmit shaun reference range : <=2. The reference range was not used to interpr et this result as jackeline l/abnormal. [facility] AND [id number] 18:47:00 Test Item Value Reference Range Interpretation Comments UA Mucus (test code = UA Mucus) Few /LPF [facility] AND [id number] 18:47:00 Test Item Value Reference Range Interpretation Comments UA RBC (test code = no gt See_Comment [Automa shaun message] The UA RBC) system which ge nerated this result transmit shaun reference range : <=2. The reference range was not used to interpr et this result as jackeline l/abnormal. [facility] AND [id number] 18:47:00 Test Item Value Reference Range Interpretation Comments UA WBC (test code = 1 See_Comment [Automa shaun message] The UA WBC) system which ge nerated this result transmit shaun reference range : <=5. The reference range was not used to interpr et this result as jackeline l/abnormal. [facility] AND [id number] 18:47:00 Test Item Value Reference Range Interpretation Comments UA Nitrite (test code Negative (10/14/15 1:47 = UA Nitrite) PM) [facility] AND [id number] 18:47:00 Test Item Value Reference Range Interpretation Comments UA Bili (test code = Negative *NA*(10/14/15 UA Bili) 1:47 PM) [facility] AND [id number] 18:47:00 Test Item Value Reference Range Interpretation Comments UA Leuk Est (test Negative (10/14/15 1:47 code = UA Leuk Est) PM) [facility] AND [id number] 18:47:00 Test Item Value Reference Range Interpretation Comments UA Blood (test code = Negative (10/14/15 1:47 UA Blood) PM) [facility] AND [id number] 18:47:00 Test Item Value Reference Range Interpretation Comments UA Urobilinogen (test code = UA <=1.0 mg/dL 0.1-1.0 Urobilinogen) [facility] AND [id number] 18:47:00 Test Item Value Reference Range Interpretation Comments UA Sq Epi (test code = UA Sq Epi) None Seen [facility] AND [id number] 18:47:00 Test Item Value Reference Range Interpretation Comments UA Ketones (test code = UA Negative mg/dL Ketones) [facility] AND [id number] 18:47:00 Test Item Value Reference Range Interpretation Comments UA Protein (test code = UA Negative mg/dL Protein) [facility] AND [id number] 18:47:00 Test Item Value Reference Range Interpretation Comments UA Spec Grav (test code = UA Spec Grav) 1.013 [facility] AND [id number] 18:47:00 Test Item Value Reference Range Interpretation Comments UA Turbidity (test code = Clear (10/14/15 1:47 UA Turbidity) PM) [facility] AND [id number] 18:47:00 Test Item Value Reference Range Interpretation Comments UA Glucose (test code = UA Negative mg/dL Glucose) [facility] AND [id number] 18:47:00 Test Item Value Reference Range Interpretation Comments UA pH (test code = UA pH) 6.0 5.0-8.0 [facility] AND [id number] 18:47:00 Test Item Value Reference Range Interpretation Comments UA Color (test code = Yellow *NA*(10/14/15 UA Color) 1:47 PM) [facility] AND [id number] 18:47:00 Test Item Value Reference Range Interpretation Comments UA Hyal Cast (test 8 See_Comment [Automat ed message] The code = UA Hyal Cast) system which generated this result transmit shaun reference range : <=2. The reference range was not used to interpr et this result as jackeline l/abnormal. [facility] AND [id number] 18:47:00 Test Item Value Reference Range Interpretation Comments UA Mucus (test code = UA Mucus) Few /LPF [facility] AND [id number] 18:47:00 Test Item Value Reference Range Interpretation Comments UA RBC (test code = no gt See_Comment [Automa shaun message] The UA RBC) system which ge nerated this result transmit shaun reference range : <=2. The reference range was not used to interpr et this result as jackeline l/abnormal. [facility] [id number] 18:47:00 Test Item Value Reference Range Interpretation Comments UA WBC (test code = 1 See_Comment [Automa shaun message] The UA WBC) system which ge nerated this result transmit shaun reference range : <=5. The reference range was not used to interpr et this result as jackeline l/abnormal. [facility] [id number] 18:47:00 Test Item Value Reference Range Interpretation Comments UA Nitrite (test code Negative (10/14/15 1:47 = UA Nitrite) PM) [facility] [id number] 18:47:00 Test Item Value Reference Range Interpretation Comments UA Bili (test code = Negative *NA*(10/14/15 UA Bili) 1:47 PM) [facility] [id number] 18:47:00 Test Item Value Reference Range Interpretation Comments UA Leuk Est (test Negative (10/14/15 1:47 code = UA Leuk Est) PM) [facility] [id number] 18:47:00 Test Item Value Reference Range Interpretation Comments UA Blood (test code = Negative (10/14/15 1:47 UA Blood) PM) [facility] [id number] 18:47:00 Test Item Value Reference Range Interpretation Comments UA Urobilinogen (test code = UA <=1.0 mg/dL 0.1-1.0 Urobilinogen) [facility] AND [id number] 18:47:00 Test Item Value Reference Range Interpretation Comments UA Sq Epi (test code = UA Sq Epi) None [facility]en [facility] AND [id number] 18:47:00 Test Item Value Reference Range Interpretation Comments UA Ketones (test code = UA Negative mg/dL Ketones) [facility] [id number] 18:47:00 Test Item Value Reference Range Interpretation Comments UA Protein (test code = UA Negative mg/dL Protein) [facility] [id number] 18:47:00 Test Item Value Reference Range Interpretation Comments UA Spec Grav (test code = UA Spec Grav) 1.013 [facility] AND [id number] 18:47:00 Test Item Value Reference Range Interpretation Comments UA Turbidity (test code = Clear (10/14/15 1:47 UA Turbidity) PM) [facility] AND [id number] 18:47:00 Test Item Value Reference Range Interpretation Comments UA Glucose (test code = UA Negative mg/dL Glucose) [facility] AND [id number] 18:47:00 Test Item Value Reference Range Interpretation Comments UA pH (test code = UA pH) 6.0 5.0-8.0 [facility] AND [id number] 18:47:00 Test Item Value Reference Range Interpretation Comments UA Color (test code = Yellow *NA*(10/14/15 UA Color) 1:47 PM) [facility] AND [id number] 18:47:00 Test Item Value Reference Range Interpretation Comments UA Hyal Cast (test 8 See_Comment [Automat ed message] The code = UA Hyal Cast) system which generated this result transmit shaun reference range : <=2. The reference range was not used to interpr et this result as jackeline l/abnormal. [facility] AND [id number] 18:47:00 Test Item Value Reference Range Interpretation Comments UA Mucus (test code = UA Mucus) Few /LPF [facility] AND [id number] 18:47:00 Test Item Value Reference Range Interpretation Comments UA RBC (test code = no gt See_Comment [Automa shaun message] The UA RBC) system which ge nerated this result transmit shaun reference range : <=2. The reference range was not used to interpr et this result as jackeline l/abnormal. [facility] AND [id number] 18:47:00 Test Item Value Reference Range Interpretation Comments UA WBC (test code = 1 See_Comment [Automa shaun message] The UA WBC) system which ge nerated this result transmit shaun reference range : <=5. The reference range was not used to interpr et this result as jackeline l/abnormal. [facility] AND [id number] 18:47:00 Test Item Value Reference Range Interpretation Comments UA Nitrite (test code Negative (10/14/15 1:47 = UA Nitrite) PM) [facility] AND [id number] 18:47:00 Test Item Value Reference Range Interpretation Comments UA Bili (test code = Negative *NA*(10/14/15 UA Bili) 1:47 PM) [facility] AND [id number] 18:47:00 Test Item Value Reference Range Interpretation Comments UA Leuk Est (test Negative (10/14/15 1:47 code = UA Leuk Est) PM) [facility] AND [id number] 18:47:00 Test Item Value Reference Range Interpretation Comments UA Blood (test code = Negative (10/14/15 1:47 UA Blood) PM) [facility] AND [id number] 18:47:00 Test Item Value Reference Range Interpretation Comments UA Urobilinogen (test code = UA <=1.0 mg/dL 0.1-1.0 Urobilinogen) [facility] AND [id number] 18:47:00 Test Item Value Reference Range Interpretation Comments UA Sq Epi (test code = UA Sq Epi) None Seen [facility] AND [id number] 18:47:00 Test Item Value Reference Range Interpretation Comments UA Ketones (test code = UA Negative mg/dL Ketones) [facility] AND [id number] 18:47:00 Test Item Value Reference Range Interpretation Comments UA Protein (test code = UA Negative mg/dL Protein) [facility] AND [id number] 18:47:00 Test Item Value Reference Range Interpretation Comments UA Spec Grav (test code = UA Spec Grav) 1.013 [facility] AND [id number] 18:47:00 Test Item Value Reference Range Interpretation Comments UA Turbidity (test code = Clear (10/14/15 1:47 UA Turbidity) PM) [facility] AND [id number] 18:47:00 Test Item Value Reference Range Interpretation Comments UA Glucose (test code = UA Negative mg/dL Glucose) [facility] AND [id number] 18:47:00 Test Item Value Reference Range Interpretation Comments UA pH (test code = UA pH) 6.0 5.0-8.0 [facility] AND [id number] 18:47:00 Test Item Value Reference Range Interpretation Comments UA Color (test code = Yellow *NA*(10/14/15 UA Color) 1:47 PM) [facility] AND [id number] 18:47:00 Test Item Value Reference Range Interpretation Comments UA Hyal Cast (test 8 See_Comment [Automat ed message] The code = UA Hyal Cast) system which generated this result transmit shaun reference range : <=2. The reference range was not used to interpr et this result as jackeline l/abnormal. [facility] AND [id number] 18:47:00 Test Item Value Reference Range Interpretation Comments UA Mucus (test code = UA Mucus) Few /LPF [facility] AND [id number] 18:47:00 Test Item Value Reference Range Interpretation Comments UA RBC (test code = no gt See_Comment [Automa shaun message] The UA RBC) system which ge nerated this result transmit shaun reference range : <=2. The reference range was not used to interpr et this result as jackeline l/abnormal. [facility] AND [id number] 18:47:00 Test Item Value Reference Range Interpretation Comments UA WBC (test code = 1 See_Comment [Automa shaun message] The UA WBC) system which ge nerated this result transmit shaun reference range : <=5. The reference range was not used to interpr et this result as jackeline l/abnormal. [facility] AND [id number] 18:47:00 Test Item Value Reference Range Interpretation Comments UA Nitrite (test code Negative (10/14/15 1:47 = UA Nitrite) PM) [facility] AND [id number] 18:47:00 Test Item Value Reference Range Interpretation Comments UA Bili (test code = Negative *NA*(10/14/15 UA Bili) 1:47 PM) [facility] AND [id number] 18:47:00 Test Item Value Reference Range Interpretation Comments UA Leuk Est (test Negative (10/14/15 1:47 code = UA Leuk Est) PM) [facility] AND [id number] 18:47:00 Test Item Value Reference Range Interpretation Comments UA Blood (test code = Negative (10/14/15 1:47 UA Blood) PM) [facility] AND [id number] 18:47:00 Test Item Value Reference Range Interpretation Comments UA Urobilinogen (test code = UA <=1.0 mg/dL 0.1-1.0 Urobilinogen) [facility] AND [id number] 18:47:00 Test Item Value Reference Range Interpretation Comments UA Sq Epi (test code = UA Sq Epi) None Seen [facility] AND [id number] 18:47:00 Test Item Value Reference Range Interpretation Comments UA Ketones (test code = UA Negative mg/dL Ketones) [facility] AND [id number] 18:47:00 Test Item Value Reference Range Interpretation Comments UA Protein (test code = UA Negative mg/dL Protein) [facility] AND [id number] 18:47:00 Test Item Value Reference Range Interpretation Comments UA Spec Grav (test code = UA Spec Grav) 1.013 [facility] AND [id number] 18:47:00 Test Item Value Reference Range Interpretation Comments UA Turbidity (test code = Clear (10/14/15 1:47 UA Turbidity) PM) [facility] AND [id number] 18:47:00 Test Item Value Reference Range Interpretation Comments UA Glucose (test code = UA Negative mg/dL Glucose) [facility] AND [id number] 18:47:00 Test Item Value Reference Range Interpretation Comments UA pH (test code = UA pH) 6.0 5.0-8.0 [facility] AND [id number] 18:47:00 Test Item Value Reference Range Interpretation Comments UA Color (test code = Yellow *NA*(10/14/15 UA Color) 1:47 PM) [facility] AND [id number] 18:47:00 Test Item Value Reference Range Interpretation Comments UA Hyal Cast (test 8 See_Comment [Automat ed message] The code = UA Hyal Cast) system which generated this result transmit shaun reference range : <=2. The reference range was not used to interpr et this result as jackeline l/abnormal. [facility] AND [id number] 18:47:00 Test Item Value Reference Range Interpretation Comments UA Mucus (test code = UA Mucus) Few /LPF [facility] AND [id number] 18:47:00 Test Item Value Reference Range Interpretation Comments UA RBC (test code = no gt See_Comment [Automa shaun message] The UA RBC) system which ge nerated this result transmit shaun reference range : <=2. The reference range was not used to interpr et this result as jackeline l/abnormal. [facility] AND [id number] 18:47:00 Test Item Value Reference Range Interpretation Comments UA WBC (test code = 1 See_Comment [Automa shaun message] The UA WBC) system which ge nerated this result transmit shaun reference range : <=5. The reference range was not used to interpr et this result as jackeline l/abnormal. [facility] AND [id number] 18:47:00 Test Item Value Reference Range Interpretation Comments UA Nitrite (test code Negative (10/14/15 1:47 = UA Nitrite) PM) [facility] AND [id number] 18:47:00 Test Item Value Reference Range Interpretation Comments UA Bili (test code = Negative *NA*(10/14/15 UA Bili) 1:47 PM) [facility] AND [id number] 18:47:00 Test Item Value Reference Range Interpretation Comments UA Leuk Est (test Negative (10/14/15 1:47 code = UA Leuk Est) PM) [facility] AND [id number] 18:47:00 Test Item Value Reference Range Interpretation Comments UA Blood (test code = Negative (10/14/15 1:47 UA Blood) PM) [facility] AND [id number] 18:47:00 Test Item Value Reference Range Interpretation Comments UA Urobilinogen (test code = UA <=1.0 mg/dL 0.1-1.0 Urobilinogen) [facility] AND [id number] 18:47:00 Test Item Value Reference Range Interpretation Comments UA Sq Epi (test code = UA Sq Epi) None Seen [facility] AND [id number] 18:47:00 Test Item Value Reference Range Interpretation Comments UA Ketones (test code = UA Negative mg/dL Ketones) [facility] AND [id number] 18:47:00 Test Item Value Reference Range Interpretation Comments UA Protein (test code = UA Negative mg/dL Protein) [facility] [id number] 18:47:00 Test Item Value Reference Range Interpretation Comments UA Spec Grav (test code = UA Spec Grav) 1.013 [facility] [id number] 18:47:00 Test Item Value Reference Range Interpretation Comments UA Turbidity (test code = Clear (10/14/15 1:47 UA Turbidity) PM) [facility] AND [id number] 18:47:00 Test Item Value Reference Range Interpretation Comments UA Glucose (test code = UA Negative mg/dL Glucose) [facility] AND [id number] 18:47:00 Test Item Value Reference Range Interpretation Comments UA pH (test code = UA pH) 6.0 5.0-8.0 [facility] [id number] 18:47:00 Test Item Value Reference Range Interpretation Comments UA Color (test code = Yellow *NA*(10/14/15 UA Color) 1:47 PM) [facility] AND [id number] 18:47:00 Test Item Value Reference Range Interpretation Comments UA Hyal Cast (test 8 See_Comment [Automat ed message] The code = UA Hyal Cast) system which generated this result transmit shaun reference range : <=2. The reference range was not used to interpr et this result as jackeline l/abnormal. [facility] AND [id number] 18:47:00 Test Item Value Reference Range Interpretation Comments UA Mucus (test code = UA Mucus) Few /LPF [facility] AND [id number] 18:47:00 Test Item Value Reference Range Interpretation Comments UA RBC (test code = no gt See_Comment [Automa shaun message] The UA RBC) system which ge nerated this result transmit shaun reference range : <=2. The reference range was not used to interpr et this result as jackeline l/abnormal. [facility] AND [id number] 18:47:00 Test Item Value Reference Range Interpretation Comments UA WBC (test code = 1 See_Comment [Automa shaun message] The UA WBC) system which ge nerated this result transmit shaun reference range : <=5. The reference range was not used to interpr et this result as jackeline l/abnormal. [facility] AND [id number] 18:47:00 Test Item Value Reference Range Interpretation Comments UA Nitrite (test code Negative (10/14/15 1:47 = UA Nitrite) PM) [facility] AND [id number] 18:47:00 Test Item Value Reference Range Interpretation Comments UA Bili (test code = Negative *NA*(10/14/15 UA Bili) 1:47 PM) [facility] AND [id number] 18:47:00 Test Item Value Reference Range Interpretation Comments UA Leuk Est (test Negative (10/14/15 1:47 code = UA Leuk Est) PM) [facility] AND [id number] 18:47:00 Test Item Value Reference Range Interpretation Comments UA Blood (test code = Negative (10/14/15 1:47 UA Blood) PM) [facility] AND [id number] 18:47:00 Test Item Value Reference Range Interpretation Comments UA Urobilinogen (test code = UA <=1.0 mg/dL 0.1-1.0 Urobilinogen) [facility] AND [id number] 18:47:00 Test Item Value Reference Range Interpretation Comments UA Sq Epi (test code = UA Sq Epi) None Seen [facility] AND [id number] 18:47:00 Test Item Value Reference Range Interpretation Comments UA Ketones (test code = UA Negative mg/dL Ketones) [facility] AND [id number] 18:47:00 Test Item Value Reference Range Interpretation Comments UA Protein (test code = UA Negative mg/dL Protein) [facility] AND [id number] 18:47:00 Test Item Value Reference Range Interpretation Comments UA Spec Grav (test code = UA Spec Grav) 1.013 [facility] AND [id number] 18:47:00 Test Item Value Reference Range Interpretation Comments UA Turbidity (test code = Clear (10/14/15 1:47 UA Turbidity) PM) [facility] AND [id number] 18:47:00 Test Item Value Reference Range Interpretation Comments UA Glucose (test code = UA Negative mg/dL Glucose) [facility] AND [id number] 18:47:00 Test Item Value Reference Range Interpretation Comments UA pH (test code = UA pH) 6.0 5.0-8.0 [facility] AND [id number] 18:47:00 Test Item Value Reference Range Interpretation Comments UA Color (test code = Yellow *NA*(10/14/15 UA Color) 1:47 PM) [facility] AND [id number] 18:47:00 Test Item Value Reference Range Interpretation Comments UA Hyal Cast (test 8 See_Comment [Automat ed message] The code = UA Hyal Cast) system which generated this result transmit shaun reference range : <=2. The reference range was not used to interpr et this result as jackeline l/abnormal. [facility] AND [id number] 18:47:00 Test Item Value Reference Range Interpretation Comments UA Mucus (test code = UA Mucus) Few /LPF [facility] AND [id number] 18:47:00 Test Item Value Reference Range Interpretation Comments UA RBC (test code = no gt See_Comment [Automa shaun message] The UA RBC) system which ge nerated this result transmit shaun reference range : <=2. The reference range was not used to interpr et this result as jackeline l/abnormal. [facility] AND [id number] 18:47:00 Test Item Value Reference Range Interpretation Comments UA WBC (test code = 1 See_Comment [Automa shaun message] The UA WBC) system which ge nerated this result transmit shaun reference range : <=5. The reference range was not used to interpr et this result as jackeline l/abnormal. [facility] AND [id number] 18:47:00 Test Item Value Reference Range Interpretation Comments UA Nitrite (test code Negative (10/14/15 1:47 = UA Nitrite) PM) [facility] AND [id number] 18:47:00 Test Item Value Reference Range Interpretation Comments UA Bili (test code = Negative *NA*(10/14/15 UA Bili) 1:47 PM) [facility] AND [id number] 18:47:00 Test Item Value Reference Range Interpretation Comments UA Leuk Est (test Negative (10/14/15 1:47 code = UA Leuk Est) PM) [facility] AND [id number] 18:47:00 Test Item Value Reference Range Interpretation Comments UA Blood (test code = Negative (10/14/15 1:47 UA Blood) PM) [facility] AND [id number] 18:47:00 Test Item Value Reference Range Interpretation Comments UA Urobilinogen (test code = UA <=1.0 mg/dL 0.1-1.0 Urobilinogen) [facility] AND [id number] 18:47:00 Test Item Value Reference Range Interpretation Comments UA Sq Epi (test code = UA Sq Epi) None Seen [facility] AND [id number] 18:47:00 Test Item Value Reference Range Interpretation Comments UA Ketones (test code = UA Negative mg/dL Ketones) [facility] AND [id number] 18:47:00 Test Item Value Reference Range Interpretation Comments UA Protein (test code = UA Negative mg/dL Protein) [facility] AND [id number] 18:47:00 Test Item Value Reference Range Interpretation Comments UA Spec Grav (test code = UA Spec Grav) 1.013 [facility] AND [id number] 18:47:00 Test Item Value Reference Range Interpretation Comments UA Turbidity (test code = Clear (10/14/15 1:47 UA Turbidity) PM) [facility] AND [id number] 18:47:00 Test Item Value Reference Range Interpretation Comments UA Glucose (test code = UA Negative mg/dL Glucose) [facility] AND [id number] 18:47:00 Test Item Value Reference Range Interpretation Comments UA pH (test code = UA pH) 6.0 5.0-8.0 [facility] AND [id number] 18:47:00 Test Item Value Reference Range Interpretation Comments UA Color (test code = Yellow *NA*(10/14/15 UA Color) 1:47 PM) [facility] AND [id number] 18:47:00 Test Item Value Reference Range Interpretation Comments UA Hyal Cast (test 8 See_Comment [Automat ed message] The code = UA Hyal Cast) system which generated this result transmit shaun reference range : <=2. The reference range was not used to interpr et this result as jackeline l/abnormal. [facility] AND [id number] 18:47:00 Test Item Value Reference Range Interpretation Comments UA Mucus (test code = UA Mucus) Few /LPF [facility] AND [id number] 18:47:00 Test Item Value Reference Range Interpretation Comments UA RBC (test code = no gt See_Comment [Automa shaun message] The UA RBC) system which ge nerated this result transmit shaun reference range : <=2. The reference range was not used to interpr et this result as jackeline l/abnormal. [facility] AND [id number] 18:47:00 Test Item Value Reference Range Interpretation Comments UA WBC (test code = 1 See_Comment [Automa shaun message] The UA WBC) system which ge nerated this result transmit shaun reference range : <=5. The reference range was not used to interpr et this result as jackeline l/abnormal. [facility] AND [id number] 18:47:00 Test Item Value Reference Range Interpretation Comments UA Nitrite (test code Negative (10/14/15 1:47 = UA Nitrite) PM) [facility] AND [id number] 18:47:00 Test Item Value Reference Range Interpretation Comments UA Bili (test code = Negative *NA*(10/14/15 UA Bili) 1:47 PM) [facility] AND [id number] 18:47:00 Test Item Value Reference Range Interpretation Comments UA Leuk Est (test Negative (10/14/15 1:47 code = UA Leuk Est) PM) [facility] AND [id number] 18:47:00 Test Item Value Reference Range Interpretation Comments UA Blood (test code = Negative (10/14/15 1:47 UA Blood) PM) [facility] AND [id number] 18:47:00 Test Item Value Reference Range Interpretation Comments UA Urobilinogen (test code = UA <=1.0 mg/dL 0.1-1.0 Urobilinogen) [facility] AND [id number] 18:47:00 Test Item Value Reference Range Interpretation Comments UA Sq Epi (test code = UA Sq Epi) None Seen [facility] AND [id number] 18:47:00 Test Item Value Reference Range Interpretation Comments UA Ketones (test code = UA Negative mg/dL Ketones) [facility] AND [id number] 18:47:00 Test Item Value Reference Range Interpretation Comments UA Protein (test code = UA Negative mg/dL Protein) [facility] AND [id number] 18:47:00 Test Item Value Reference Range Interpretation Comments UA Spec Grav (test code = UA Spec Grav) 1.013 [facility] AND [id number] 18:47:00 Test Item Value Reference Range Interpretation Comments UA Turbidity (test code = Clear (10/14/15 1:47 UA Turbidity) PM) [facility] AND [id number] 18:47:00 Test Item Value Reference Range Interpretation Comments UA Glucose (test code = UA Negative mg/dL Glucose) [facility] AND [id number] 18:47:00 Test Item Value Reference Range Interpretation Comments UA pH (test code = UA pH) 6.0 5.0-8.0 [facility] AND [id number] 18:47:00 Test Item Value Reference Range Interpretation Comments UA Color (test code = Yellow *NA*(10/14/15 UA Color) 1:47 PM) [facility] AND [id number] 18:47:00 Test Item Value Reference Range Interpretation Comments UA Hyal Cast (test 8 See_Comment [Automat ed message] The code = UA Hyal Cast) system which generated this result transmit shaun reference range : <=2. The reference range was not used to interpr et this result as jackeline l/abnormal. [facility] AND [id number] 18:47:00 Test Item Value Reference Range Interpretation Comments UA Mucus (test code = UA Mucus) Few /LPF [facility] AND [id number] 18:47:00 Test Item Value Reference Range Interpretation Comments UA RBC (test code = no gt See_Comment [Automa shaun message] The UA RBC) system which ge nerated this result transmit shaun reference range : <=2. The reference range was not used to interpr et this result as jackeline l/abnormal. [facility] AND [id number] 18:47:00 Test Item Value Reference Range Interpretation Comments UA WBC (test code = 1 See_Comment [Automa shaun message] The UA WBC) system which ge nerated this result transmit shaun reference range : <=5. The reference range was not used to interpr et this result as jackeline l/abnormal. [facility] AND [id number] 18:47:00 Test Item Value Reference Range Interpretation Comments UA Nitrite (test code Negative (10/14/15 1:47 = UA Nitrite) PM) [facility] AND [id number] 18:47:00 Test Item Value Reference Range Interpretation Comments UA Bili (test code = Negative *NA*(10/14/15 UA Bili) 1:47 PM) [facility] AND [id number] 18:47:00 Test Item Value Reference Range Interpretation Comments UA Leuk Est (test Negative (10/14/15 1:47 code = UA Leuk Est) PM) [facility] AND [id number] 18:47:00 Test Item Value Reference Range Interpretation Comments UA Blood (test code = Negative (10/14/15 1:47 UA Blood) PM) [facility] AND [id number] 18:47:00 Test Item Value Reference Range Interpretation Comments UA Urobilinogen (test code = UA <=1.0 mg/dL 0.1-1.0 Urobilinogen) [facility] AND [id number] 18:47:00 Test Item Value Reference Range Interpretation Comments UA Sq Epi (test code = UA Sq Epi) None Seen [facility] AND [id number] 18:47:00 Test Item Value Reference Range Interpretation Comments UA Ketones (test code = UA Negative mg/dL Ketones) [facility] AND [id number] 18:47:00 Test Item Value Reference Range Interpretation Comments UA Protein (test code = UA Negative mg/dL Protein) [facility] AND [id number] 18:47:00 Test Item Value Reference Range Interpretation Comments UA Spec Grav (test code = UA Spec Grav) 1.013 [facility] AND [id number] 18:47:00 Test Item Value Reference Range Interpretation Comments UA Turbidity (test code = Clear (10/14/15 1:47 UA Turbidity) PM) [facility] AND [id number] 18:47:00 Test Item Value Reference Range Interpretation Comments UA Glucose (test code = UA Negative mg/dL Glucose) [facility] AND [id number] 18:47:00 Test Item Value Reference Range Interpretation Comments UA pH (test code = UA pH) 6.0 5.0-8.0 [facility] AND [id number] 18:47:00 Test Item Value Reference Range Interpretation Comments UA Color (test code = Yellow *NA*(10/14/15 UA Color) 1:47 PM) [facility] AND [id number] 18:47:00 Test Item Value Reference Range Interpretation Comments UA Hyal Cast (test 8 See_Comment [Automat ed message] The code = UA Hyal Cast) system which generated this result transmit shaun reference range : <=2. The reference range was not used to interpr et this result as jackeline l/abnormal. [facility] [id number] 18:47:00 Test Item Value Reference Range Interpretation Comments UA Mucus (test code = UA Mucus) Few /LPF [facility] AND [id number] 18:47:00 Test Item Value Reference Range Interpretation Comments UA RBC (test code = no gt See_Comment [Automa shaun message] The UA RBC) system which ge nerated this result transmit shaun reference range : <=2. The reference range was not used to interpr et this result as jackeline l/abnormal. [facility] AND [id number] 18:47:00 Test Item Value Reference Range Interpretation Comments UA WBC (test code = 1 See_Comment [Automa shaun message] The UA WBC) system which ge nerated this result transmit shaun reference range : <=5. The reference range was not used to interpr et this result as jackeline l/abnormal. [facility] AND [id number] 18:47:00 Test Item Value Reference Range Interpretation Comments UA Nitrite (test code Negative (10/14/15 1:47 = UA Nitrite) PM) [facility] AND [id number] 18:47:00 Test Item Value Reference Range Interpretation Comments UA Bili (test code = Negative *NA*(10/14/15 UA Bili) 1:47 PM) [facility] AND [id number] 18:47:00 Test Item Value Reference Range Interpretation Comments UA Leuk Est (test Negative (10/14/15 1:47 code = UA Leuk Est) PM) [facility] AND [id number] 18:47:00 Test Item Value Reference Range Interpretation Comments UA Blood (test code = Negative (10/14/15 1:47 UA Blood) PM) [facility] AND [id number] 18:47:00 Test Item Value Reference Range Interpretation Comments UA Urobilinogen (test code = UA <=1.0 mg/dL 0.1-1.0 Urobilinogen) [facility] AND [id number] 18:47:00 Test Item Value Reference Range Interpretation Comments UA Urobilinogen (test code = UA <=1.0 mg/dL 0.1-1.0 Urobilinogen) [facility] AND [id number] 18:47:00 Test Item Value Reference Range Interpretation Comments UA Sq Epi (test code = UA Sq Epi) None Seen [facility] AND [id number] 18:47:00 Test Item Value Reference Range Interpretation Comments UA Sq Epi (test code = UA Sq Epi) None Seen [facility] AND [id number] 18:47:00 Test Item Value Reference Range Interpretation Comments UA Ketones (test code = UA Negative mg/dL Ketones) [facility] AND [id number] 18:47:00 Test Item Value Reference Range Interpretation Comments UA Protein (test code = UA Negative mg/dL Protein) [facility] AND [id number] 18:47:00 Test Item Value Reference Range Interpretation Comments UA Spec Grav (test code = UA Spec Grav) 1.013 [facility] AND [id number] 18:47:00 Test Item Value Reference Range Interpretation Comments UA Turbidity (test code = Clear (10/14/15 1:47 UA Turbidity) PM) [facility] AND [id number] 18:47:00 Test Item Value Reference Range Interpretation Comments UA Glucose (test code = UA Negative mg/dL Glucose) [facility] AND [id number] 18:47:00 Test Item Value Reference Range Interpretation Comments UA pH (test code = UA pH) 6.0 5.0-8.0 [facility] AND [id number] 18:47:00 Test Item Value Reference Range Interpretation Comments UA Color (test code = Yellow *NA*(10/14/15 UA Color) 1:47 PM) [facility] AND [id number] 18:47:00 Test Item Value Reference Range Interpretation Comments UA Hyal Cast (test 8 See_Comment [Automat ed message] The code = UA Hyal Cast) system which generated this result transmit shaun reference range : <=2. The reference range was not used to interpr et this result as jackeline l/abnormal. [facility] AND [id number] 18:47:00 Test Item Value Reference Range Interpretation Comments UA Mucus (test code = UA Mucus) Few /LPF [facility] AND [id number] 18:47:00 Test Item Value Reference Range Interpretation Comments UA Ketones (test code = UA Negative mg/dL Ketones) [facility] AND [id number] 18:47:00 Test Item Value Reference Range Interpretation Comments UA RBC (test code = no gt See_Comment [Automa shaun message] The UA RBC) system which ge nerated this result transmit shaun reference range : <=2. The reference range was not used to interpr et this result as jackeline l/abnormal. [facility] AND [id number] 18:47:00 Test Item Value Reference Range Interpretation Comments UA WBC (test code = 1 See_Comment [Automa shaun message] The UA WBC) system which ge nerated this result transmit shaun reference range : <=5. The reference range was not used to interpr et this result as jackeline l/abnormal. [facility] AND [id number] 18:47:00 Test Item Value Reference Range Interpretation Comments UA Nitrite (test code Negative (10/14/15 1:47 = UA Nitrite) PM) [facility] AND [id number] 18:47:00 Test Item Value Reference Range Interpretation Comments UA Bili (test code = Negative *NA*(10/14/15 UA Bili) 1:47 PM) [facility] AND [id number] 18:47:00 Test Item Value Reference Range Interpretation Comments UA Leuk Est (test Negative (10/14/15 1:47 code = UA Leuk Est) PM) [facility] AND [id number] 18:47:00 Test Item Value Reference Range Interpretation Comments UA Blood (test code = Negative (10/14/15 1:47 UA Blood) PM) [facility] [id number] 18:47:00 Test Item Value Reference Range Interpretation Comments UA Protein (test code = UA Negative mg/dL Protein) [facility] AND [id number] 18:47:00 Test Item Value Reference Range Interpretation Comments UA Spec Grav (test code = UA Spec Grav) 1.013 [facility] AND [id number] 18:47:00 Test Item Value Reference Range Interpretation Comments UA Turbidity (test code = Clear (10/14/15 1:47 UA Turbidity) PM) [facility] AND [id number] 18:47:00 Test Item Value Reference Range Interpretation Comments UA Glucose (test code = UA Negative mg/dL Glucose) [facility] AND [id number] 18:47:00 Test Item Value Reference Range Interpretation Comments UA pH (test code = UA pH) 6.0 5.0-8.0 [facility] AND [id number] 18:47:00 Test Item Value Reference Range Interpretation Comments UA Color (test code = Yellow *NA*(10/14/15 UA Color) 1:47 PM) [facility] AND [id number] 18:47:00 Test Item Value Reference Range Interpretation Comments UA Hyal Cast (test 8 See_Comment [Automat ed message] The code = UA Hyal Cast) system which generated this result transmit shaun reference range : <=2. The reference range was not used to interpr et this result as jackeline l/abnormal. [facility] AND [id number] 18:47:00 Test Item Value Reference Range Interpretation Comments UA Mucus (test code = UA Mucus) Few /LPF [facility] AND [id number] 18:47:00 Test Item Value Reference Range Interpretation Comments UA RBC (test code = no gt See_Comment [Automa shaun message] The UA RBC) system which ge nerated this result transmit shaun reference range : <=2. The reference range was not used to interpr et this result as jackeline l/abnormal. [facility] AND [id number] 18:47:00 Test Item Value Reference Range Interpretation Comments UA WBC (test code = 1 See_Comment [Automa shaun message] The UA WBC) system which ge nerated this result transmit shaun reference range : <=5. The reference range was not used to interpr et this result as jackeline l/abnormal. [facility] AND [id number] 18:47:00 Test Item Value Reference Range Interpretation Comments UA Nitrite (test code Negative (10/14/15 1:47 = UA Nitrite) PM) [facility] AND [id number] 18:47:00 Test Item Value Reference Range Interpretation Comments UA Bili (test code = Negative *NA*(10/14/15 UA Bili) 1:47 PM) [facility] AND [id number] 18:47:00 Test Item Value Reference Range Interpretation Comments UA Leuk Est (test Negative (10/14/15 1:47 code = UA Leuk Est) PM) [facility] AND [id number] 18:47:00 Test Item Value Reference Range Interpretation Comments UA Blood (test code = Negative (10/14/15 1:47 UA Blood) PM) [facility] AND [id number] 18:47:00 Test Item Value Reference Range Interpretation Comments UA Urobilinogen (test code = UA <=1.0 mg/dL 0.1-1.0 Urobilinogen) [facility] AND [id number] 18:47:00 Test Item Value Reference Range Interpretation Comments UA Sq Epi (test code = UA Sq Epi) None Seen [facility] AND [id number] 18:47:00 Test Item Value Reference Range Interpretation Comments UA Ketones (test code = UA Negative mg/dL Ketones) [facility] AND [id number] 18:47:00 Test Item Value Reference Range Interpretation Comments UA Protein (test code = UA Negative mg/dL Protein) [facility] AND [id number] 18:47:00 Test Item Value Reference Range Interpretation Comments UA Spec Grav (test code = UA Spec Grav) 1.013 [facility] AND [id number] 18:47:00 Test Item Value Reference Range Interpretation Comments UA Turbidity (test code = Clear (10/14/15 1:47 UA Turbidity) PM) [facility] AND [id number] 18:47:00 Test Item Value Reference Range Interpretation Comments UA Glucose (test code = UA Negative mg/dL Glucose) [facility] AND [id number] 18:47:00 Test Item Value Reference Range Interpretation Comments UA pH (test code = UA pH) 6.0 5.0-8.0 [facility] AND [id number] 18:47:00 Test Item Value Reference Range Interpretation Comments UA Color (test code = Yellow *NA*(10/14/15 UA Color) 1:47 PM) [facility] AND [id number] 18:47:00 Test Item Value Reference Range Interpretation Comments UA Hyal Cast (test 8 See_Comment [Automat ed message] The code = UA Hyal Cast) system which generated this result transmit shaun reference range : <=2. The reference range was not used to interpr et this result as jackeline l/abnormal. [facility] [id number] 18:47:00 Test Item Value Reference Range Interpretation Comments UA Mucus (test code = UA Mucus) Few /LPF [facility] AND [id number] 18:47:00 Test Item Value Reference Range Interpretation Comments UA RBC (test code = no gt See_Comment [Automa shaun message] The UA RBC) system which ge nerated this result transmit shaun reference range : <=2. The reference range was not used to interpr et this result as jackeline l/abnormal. [facility] [id number] 18:47:00 Test Item Value Reference Range Interpretation Comments UA WBC (test code = 1 See_Comment [Automa shaun message] The UA WBC) system which ge nerated this result transmit shaun reference range : <=5. The reference range was not used to interpr et this result as jackeline l/abnormal. [facility] AND [id number] 18:47:00 Test Item Value Reference Range Interpretation Comments UA Nitrite (test code Negative (10/14/15 1:47 = UA Nitrite) PM) [facility] AND [id number] 18:47:00 Test Item Value Reference Range Interpretation Comments UA Bili (test code = Negative *NA*(10/14/15 UA Bili) 1:47 PM) [facility] AND [id number] 18:47:00 Test Item Value Reference Range Interpretation Comments UA Leuk Est (test Negative (10/14/15 1:47 code = UA Leuk Est) PM) [facility] AND [id number] 18:47:00 Test Item Value Reference Range Interpretation Comments UA Blood (test code = Negative (10/14/15 1:47 UA Blood) PM) [facility] AND [id number] 18:47:00 Test Item Value Reference Range Interpretation Comments UA Urobilinogen (test code = UA <=1.0 mg/dL 0.1-1.0 Urobilinogen) [facility] AND [id number] 18:47:00 Test Item Value Reference Range Interpretation Comments UA Sq Epi (test code = UA Sq Epi) None Seen [facility] AND [id number] 18:47:00 Test Item Value Reference Range Interpretation Comments UA Ketones (test code = UA Negative mg/dL Ketones) [facility] AND [id number] 18:47:00 Test Item Value Reference Range Interpretation Comments UA Protein (test code = UA Negative mg/dL Protein) [facility] AND [id number] 18:47:00 Test Item Value Reference Range Interpretation Comments UA Spec Grav (test code = UA Spec Grav) 1.013 [facility] AND [id number] 18:47:00 Test Item Value Reference Range Interpretation Comments UA Turbidity (test code = Clear (10/14/15 1:47 UA Turbidity) PM) [facility] AND [id number] 18:47:00 Test Item Value Reference Range Interpretation Comments UA Glucose (test code = UA Negative mg/dL Glucose) [facility] AND [id number] 18:47:00 Test Item Value Reference Range Interpretation Comments UA pH (test code = UA pH) 6.0 5.0-8.0 [facility] AND [id number] 18:47:00 Test Item Value Reference Range Interpretation Comments UA Color (test code = Yellow *NA*(10/14/15 UA Color) 1:47 PM) [facility] AND [id number] 18:47:00 Test Item Value Reference Range Interpretation Comments UA Hyal Cast (test 8 See_Comment [Automat ed message] The code = UA Hyal Cast) system which generated this result transmit shaun reference range : <=2. The reference range was not used to interpr et this result as jackeline l/abnormal. [facility] AND [id number] 18:47:00 Test Item Value Reference Range Interpretation Comments UA Mucus (test code = UA Mucus) Few /LPF [facility] AND [id number] 18:47:00 Test Item Value Reference Range Interpretation Comments UA RBC (test code = no gt See_Comment [Automa shaun message] The UA RBC) system which ge nerated this result transmit shaun reference range : <=2. The reference range was not used to interpr et this result as jackeline l/abnormal. [facility] AND [id number] 18:47:00 Test Item Value Reference Range Interpretation Comments UA WBC (test code = 1 See_Comment [Automa shaun message] The UA WBC) system which ge nerated this result transmit shaun reference range : <=5. The reference range was not used to interpr et this result as jackeline l/abnormal. [facility] AND [id number] 18:47:00 Test Item Value Reference Range Interpretation Comments UA Nitrite (test code Negative (10/14/15 1:47 = UA Nitrite) PM) [facility] AND [id number] 18:47:00 Test Item Value Reference Range Interpretation Comments UA Bili (test code = Negative *NA*(10/14/15 UA Bili) 1:47 PM) [facility] AND [id number] 18:47:00 Test Item Value Reference Range Interpretation Comments UA Leuk Est (test Negative (10/14/15 1:47 code = UA Leuk Est) PM) [facility] AND [id number] 18:47:00 Test Item Value Reference Range Interpretation Comments UA Blood (test code = Negative (10/14/15 1:47 UA Blood) PM) [id number] 10:37:00 Test Item Value Reference Range Interpretation Comments Monocytes (test code = Monocytes) 8.3 2.0-12.0 [facility] [id number] 10:37:00 Test Item Value Reference Range Interpretation Comments Monocytes # (test code 0.9 See_Comment [Aut omated message] The = Monocytes #) system which generated this result tra nsmitted reference range : <=0.8. The reference r lily was not used to int erpret this result as normal/abnormal . [facility] [id number] 10:37:00 Test Item Value Reference Range Interpretation Comments RBC (test code = RBC) 3.98 4.20-5.40 [facility] [id number] 10:37:00 Test Item Value Reference Range Interpretation Comments Hct (test code = Hct) 35.5 36.0-48.0 [facility] [id number] 10:37:00 Test Item Value Reference Range Interpretation Comments Hgb (test code = Hgb) 11.9 12.0-16.0 [facility] [id number] 10:37:00 Test Item Value Reference Range Interpretation Comments RDW (test code = RDW) 13.4 11.5-14.5 [facility] [id number] 10:37:00 Test Item Value Reference Range Interpretation Comments WBC (test code = WBC) 10.8 3.7-10.4 [facility] [id number] 10:37:00 Test Item Value Reference Range Interpretation Comments Platelet (test code = Platelet) 166 133-450 [facility] [id number] 10:37:00 Test Item Value Reference Range Interpretation Comments MCHC (test code = MCHC) 33.6 32.0-36.0 [facility] [id number] 10:37:00 Test Item Value Reference Range Interpretation Comments MCH (test code = MCH) 30.0 pg 27.0-31.0 [facility] [id number] 10:37:00 Test Item Value Reference Range Interpretation Comments MCV (test code = MCV) 89.3 80.0-98.0 [facility] [id number] 10:37:00 Test Item Value Reference Range Interpretation Comments MPV (test code = MPV) 11.3 7.4-10.4 [facility]2016-07-17 10:37:00 Test Item Value Reference Range Interpretation Comments Magnesium Lvl (test code = Magnesium 1.2 1.8-2.4 Lvl) [facility]2016-07-17 10:37:00 Test Item Value Reference Range Interpretation Comments eGFR (test code = eGFR) 107 [facility]2016-07-17 10:37:00 Test Item Value Reference Range Interpretation Comments Bili Total (test code = Bili Total) 0.6 0.2-1.3 [facility]2016-07-17 10:37:00 Test Item Value Reference Range Interpretation Comments Alk Phos (test code = Alk Phos) 49 39-136 [facility]2016-07-17 10:37:00 Test Item Value Reference Range Interpretation Comments ALANINE AMINOTRANSFERASE 18 See_Comment [A utomated message] (test code = ALANINE The sys tem which AMINOTRANSFERASE) generated this result transmitted ref erence range: <=65. Th e reference range was not used to int erpret this result as normal/abnormal . [facility]2016-07-17 10:37:00 Test Item Value Reference Range Interpretation Comments ASPARTATE TRANSAMINASE 15 See_Comment [Aut omated message] (test code = ASPARTATE The s ystem which TRANSAMINASE) generated this result transmitted ref erence range: <=37. Th e reference range was not used to interpr et this result as normal/abnormal . [facility]2016-07-17 10:37:00 Test Item Value Reference Range Interpretation Comments Total Protein (test code = Total 4.9 6.4-8.4 Protein) [facility]2016-07-17 10:37:00 Test Item Value Reference Range Interpretation Comments Albumin Lvl (test code = Albumin Lvl) 2.2 3.5-5.0 [facility]2016-07-17 10:37:00 Test Item Value Reference Range Interpretation Comments A/G Ratio (test code = A/G Ratio) 0.8 0.7-1.6 [facility]2016-07-17 10:37:00 Test Item Value Reference Range Interpretation Comments Globulin (test code = Globulin) 2.7 2.0-4.0 [facility]2016-07-17 10:37:00 Test Item Value Reference Range Interpretation Comments Calcium Lvl (test code = Calcium Lvl) 6.4 8.5-10.5 [facility]2016-07-17 10:37:00 Test Item Value Reference Range Interpretation Comments B/C Ratio (test code = B/C Ratio) 17 6-25 [facility]2016-07-17 10:37:00 Test Item Value Reference Range Interpretation Comments CO2 (test code = CO2) 22 24-32 [facility]2016-07-17 10:37:00 Test Item Value Reference Range Interpretation Comments AGAP (test code = AGAP) 13.7 10.0-20.0 [facility]2016-07-17 10:37:00 Test Item Value Reference Range Interpretation Comments Glucose Lvl (test code = Glucose Lvl) 98 70-99 [facility]2016-07-17 10:37:00 Test Item Value Reference Range Interpretation Comments Creatinine Lvl (test code = Creatinine 0.46 0.50-1.40 Lvl) [facility]2016-07-17 10:37:00 Test Item Value Reference Range Interpretation Comments Sodium Lvl (test code = Sodium Lvl) 148 135-145 [facility]2016-07-17 10:37:00 Test Item Value Reference Range Interpretation Comments Potassium Lvl (test code = Potassium 2.7 3.5-5.1 Lvl) [facility]2016-07-17 10:37:00 Test Item Value Reference Range Interpretation Comments Chloride Lvl (test code = Chloride Lvl) 115 95-109 [facility]2016-07-17 10:37:00 Test Item Value Reference Range Interpretation Comments BUN (test code = BUN) 8 7-22 [facility]2016-07-17 10:37:00 Test Item Value Reference Range Interpretation Comments Phosphorus (test code = Phosphorus) 2.4 2.5-4.5 [facility] [id number] 10:37:00 Test Item Value Reference Range Interpretation Comments Segs (test code = Segs) 79.4 45.0-75.0 [facility] [id number] 10:37:00 Test Item Value Reference Range Interpretation Comments Eosinophils (test code = 0.2 See_Comment [A utomated message] The Eosinophils) system which ge nerated this result tra nsmitted reference range : <=4.0. The reference r lily was not used to int erpret this result as normal/abnormal . [facility] [id number] 10:37:00 Test Item Value Reference Range Interpretation Comments Basophils (test code = 0.1 See_Comment [Aut omated message] The Basophils) system which ge nerated this result tra nsmitted reference range : <=1.0. The reference r lily was not used to int erpret this result as normal/abnormal . [facility] PasoSjglchnRBGPPFOLIK2929-43-03 10:37:00 Test Item Value Reference Range Interpretation Comments Lymphocytes (test code = Lymphocytes) 12.0 20.0-40.0 [facility] Pa[id number] 10:37:00 Test Item Value Reference Range Interpretation Comments Lymphocytes # (test code = Lymphocytes 1.3 1.0-5.5 #) [facility] [id number] 10:37:00 Test Item Value Reference Range Interpretation Comments Segs-Bands # (test code = Segs-Bands #) 8.6 1.5-8.1 [facility] PasoOfwcifeWEMXXEEBXB1196-61-33 10:37:00 Test Item Value Reference Range Interpretation Comments Monocytes (test code = Monocytes) 8.3 2.0-12.0 [facility] PasoZtfaqtwJDYVZEJVSC0165-28-24 10:37:00 Test Item Value Reference Range Interpretation Comments Monocytes # (test code 0.9 See_Comment [Aut omated message] The = Monocytes #) system which generated this result tra nsmitted reference range : <=0.8. The reference r lily was not used to int erpret this result as normal/abnormal . [facility] PasoKwotbdeFCAKWJEEUS2623-17-35 10:37:00 Test Item Value Reference Range Interpretation Comments RBC (test code = RBC) 3.98 4.20-5.40 [facility] [id number] 10:37:00 Test Item Value Reference Range Interpretation Comments Hct (test code = Hct) 35.5 36.0-48.0 [facility] Pa[id number] 10:37:00 Test Item Value Reference Range Interpretation Comments Hgb (test code = Hgb) 11.9 12.0-16.0 [facility] PasoZutivocQXCJWNSIHG7385-31-81 10:37:00 Test Item Value Reference Range Interpretation Comments RDW (test code = RDW) 13.4 11.5-14.5 [facility] PasoWoxugkpCSESPXLZYQ3342-06-01 10:37:00 Test Item Value Reference Range Interpretation Comments WBC (test code = WBC) 10.8 3.7-10.4 [facility] PasoKponliuRIIWDMKTRT3336-70-17 10:37:00 Test Item Value Reference Range Interpretation Comments Platelet (test code = Platelet) 166 133-450 [facility] Pa[id number] 10:37:00 Test Item Value Reference Range Interpretation Comments MCHC (test code = MCHC) 33.6 32.0-36.0 [facility] [id number] 10:37:00 Test Item Value Reference Range Interpretation Comments MCH (test code = MCH) 30.0 pg 27.0-31.0 [facility] PasoMscuegkYUOQPKSKIG1657-12-10 10:37:00 Test Item Value Reference Range Interpretation Comments MCV (test code = MCV) 89.3 80.0-98.0 [facility] PasoTrotacxSHNMDYLFNX1197-74-67 10:37:00 Test Item Value Reference Range Interpretation Comments MPV (test code = MPV) 11.3 7.4-10.4 [facility]2016-07-17 10:37:00 Test Item Value Reference Range Interpretation Comments Magnesium Lvl (test code = Magnesium 1.2 1.8-2.4 Lvl) [facility]2016-07-17 10:37:00 Test Item Value Reference Range Interpretation Comments eGFR (test code = eGFR) 107 [facility]2016-07-17 10:37:00 Test Item Value Reference Range Interpretation Comments Bili Total (test code = Bili Total) 0.6 0.2-1.3 [facility]2016-07-17 10:37:00 Test Item Value Reference Range Interpretation Comments Alk Phos (test code = Alk Phos) 49 39-136 [facility]2016-07-17 10:37:00 Test Item Value Reference Range Interpretation Comments ALANINE AMINOTRANSFERASE 18 See_Comment [A utomated message] (test code = ALANINE The sys tem which AMINOTRANSFERASE) generated this result transmitted ref erence range: <=65. Th e reference range was not used to int erpret this result as normal/abnormal . [facility]2016-07-17 10:37:00 Test Item Value Reference Range Interpretation Comments ASPARTATE TRANSAMINASE 15 See_Comment [Aut omated message] (test code = ASPARTATE The s ystem which TRANSAMINASE) generated this result transmitted ref erence range: <=37. Th e reference range was not used to interpr et this result as normal/abnormal . [facility]2016-07-17 10:37:00 Test Item Value Reference Range Interpretation Comments Total Protein (test code = Total 4.9 6.4-8.4 Protein) [facility]2016-07-17 10:37:00 Test Item Value Reference Range Interpretation Comments Albumin Lvl (test code = Albumin Lvl) 2.2 3.5-5.0 [facility]2016-07-17 10:37:00 Test Item Value Reference Range Interpretation Comments A/G Ratio (test code = A/G Ratio) 0.8 0.7-1.6 [facility]2016-07-17 10:37:00 Test Item Value Reference Range Interpretation Comments Globulin (test code = Globulin) 2.7 2.0-4.0 [facility]2016-07-17 10:37:00 Test Item Value Reference Range Interpretation Comments Calcium Lvl (test code = Calcium Lvl) 6.4 8.5-10.5 [facility]2016-07-17 10:37:00 Test Item Value Reference Range Interpretation Comments B/C Ratio (test code = B/C Ratio) 17 6-25 [facility]2016-07-17 10:37:00 Test Item Value Reference Range Interpretation Comments CO2 (test code = CO2) 22 24-32 [facility]2016-07-17 10:37:00 Test Item Value Reference Range Interpretation Comments AGAP (test code = AGAP) 13.7 10.0-20.0 [facility]2016-07-17 10:37:00 Test Item Value Reference Range Interpretation Comments Glucose Lvl (test code = Glucose Lvl) 98 70-99 [facility]2016-07-17 10:37:00 Test Item Value Reference Range Interpretation Comments Creatinine Lvl (test code = Creatinine 0.46 0.50-1.40 Lvl) [facility]2016-07-17 10:37:00 Test Item Value Reference Range Interpretation Comments Sodium Lvl (test code = Sodium Lvl) 148 135-145 [facility]2016-07-17 10:37:00 Test Item Value Reference Range Interpretation Comments Potassium Lvl (test code = Potassium 2.7 3.5-5.1 Lvl) [facility]2016-07-17 10:37:00 Test Item Value Reference Range Interpretation Comments Chloride Lvl (test code = Chloride Lvl) 115 95-109 [facility]2016-07-17 10:37:00 Test Item Value Reference Range Interpretation Comments BUN (test code = BUN) 8 7-22 [facility]2016-07-17 10:37:00 Test Item Value Reference Range Interpretation Comments Phosphorus (test code = Phosphorus) 2.4 2.5-4.5 [facility] PasoIayzdgoSHVJIDBGJO5633-94-10 10:37:00 Test Item Value Reference Range Interpretation Comments Segs (test code = Segs) 79.4 45.0-75.0 [facility] PasoHhyxmmfCJBAPDORUI8256-88-10 10:37:00 Test Item Value Reference Range Interpretation Comments Eosinophils (test code = 0.2 See_Comment [A utomated message] The Eosinophils) system which ge nerated this result tra nsmitted reference range : <=4.0. The reference r lily was not used to int erpret this result as normal/abnormal . [facility] PasoOvpvrphJWXAISUQQY6860-20-09 10:37:00 Test Item Value Reference Range Interpretation Comments Basophils (test code = 0.1 See_Comment [Aut omated message] The Basophils) system which ge nerated this result tra nsmitted reference range : <=1.0. The reference r lily was not used to int erpret this result as normal/abnormal . [facility] PasoHndtcjiWMWTULAFVL2881-30-35 10:37:00 Test Item Value Reference Range Interpretation Comments Lymphocytes (test code = Lymphocytes) 12.0 20.0-40.0 [facility] PasoJmawvnfKZKKLSAQWV8243-62-26 10:37:00 Test Item Value Reference Range Interpretation Comments Lymphocytes # (test code = Lymphocytes 1.3 1.0-5.5 #) [facility] PasoLbopbwhDZGBNWWDGB2866-19-80 10:37:00 Test Item Value Reference Range Interpretation Comments Segs-Bands # (test code = Segs-Bands #) 8.6 1.5-8.1 [facility] [id number] 10:37:00 Test Item Value Reference Range Interpretation Comments Monocytes (test code = Monocytes) 8.3 2.0-12.0 [facility] Pa[id number] 10:37:00 Test Item Value Reference Range Interpretation Comments Monocytes # (test code 0.9 See_Comment [Aut omated message] The = Monocytes #) system which generated this result tra nsmitted reference range : <=0.8. The reference r lily was not used to int erpret this result as normal/abnormal . [facility] PasoBkbmtehEXXGUQFZRI4871-24-23 10:37:00 Test Item Value Reference Range Interpretation Comments RBC (test code = RBC) 3.98 4.20-5.40 [facility] PasoRrfohmwCUFTGGWIUN3063-03-97 10:37:00 Test Item Value Reference Range Interpretation Comments Hct (test code = Hct) 35.5 36.0-48.0 [facility] PasoGbaaixeGHYMQYKHWD7249-62-10 10:37:00 Test Item Value Reference Range Interpretation Comments Hgb (test code = Hgb) 11.9 12.0-16.0 [facility] PasoVsrktdyMTKVUCHBRQ6590-47-23 10:37:00 Test Item Value Reference Range Interpretation Comments RDW (test code = RDW) 13.4 11.5-14.5 [facility] PasoZykcpotJYFUUARDCN6323-71-05 10:37:00 Test Item Value Reference Range Interpretation Comments WBC (test code = WBC) 10.8 3.7-10.4 [facility] PasoUdfdhnoSVXDLKAYGA1284-00-23 10:37:00 Test Item Value Reference Range Interpretation Comments Platelet (test code = Platelet) 166 133-450 [facility] PasoAxfcyzvNIYZKHIUMQ3310-29-84 10:37:00 Test Item Value Reference Range Interpretation Comments MCHC (test code = MCHC) 33.6 32.0-36.0 [facility] PasoPadejxgEGZHRKQKIQ2980-94-31 10:37:00 Test Item Value Reference Range Interpretation Comments MCH (test code = MCH) 30.0 pg 27.0-31.0 [facility] PasoBsboiiuRTGNHWSIPY8376-06-62 10:37:00 Test Item Value Reference Range Interpretation Comments MCV (test code = MCV) 89.3 80.0-98.0 [facility] PasoKhnwsceSTMEBQCSXS2017-48-80 10:37:00 Test Item Value Reference Range Interpretation Comments MPV (test code = MPV) 11.3 7.4-10.4 [facility]2016-07-17 10:37:00 Test Item Value Reference Range Interpretation Comments Magnesium Lvl (test code = Magnesium 1.2 1.8-2.4 Lvl) [facility]2016-07-17 10:37:00 Test Item Value Reference Range Interpretation Comments eGFR (test code = eGFR) 107 [facility]2016-07-17 10:37:00 Test Item Value Reference Range Interpretation Comments Bili Total (test code = Bili Total) 0.6 0.2-1.3 [facility]2016-07-17 10:37:00 Test Item Value Reference Range Interpretation Comments Alk Phos (test code = Alk Phos) 49 39-136 [facility]2016-07-17 10:37:00 Test Item Value Reference Range Interpretation Comments ALANINE AMINOTRANSFERASE 18 See_Comment [A utomated message] (test code = ALANINE The sys tem which AMINOTRANSFERASE) generated this result transmitted ref erence range: <=65. Th e reference range was not used to int erpret this result as normal/abnormal . [facility]2016-07-17 10:37:00 Test Item Value Reference Range Interpretation Comments ASPARTATE TRANSAMINASE 15 See_Comment [Aut omated message] (test code = ASPARTATE The s ystem which TRANSAMINASE) generated this result transmitted ref erence range: <=37. Th e reference range was not used to interpr et this result as normal/abnormal . [facility]2016-07-17 10:37:00 Test Item Value Reference Range Interpretation Comments Total Protein (test code = Total 4.9 6.4-8.4 Protein) [facility]2016-07-17 10:37:00 Test Item Value Reference Range Interpretation Comments Albumin Lvl (test code = Albumin Lvl) 2.2 3.5-5.0 [facility]2016-07-17 10:37:00 Test Item Value Reference Range Interpretation Comments A/G Ratio (test code = A/G Ratio) 0.8 0.7-1.6 [facility]2016-07-17 10:37:00 Test Item Value Reference Range Interpretation Comments Globulin (test code = Globulin) 2.7 2.0-4.0 [facility]2016-07-17 10:37:00 Test Item Value Reference Range Interpretation Comments Calcium Lvl (test code = Calcium Lvl) 6.4 8.5-10.5 [facility]2016-07-17 10:37:00 Test Item Value Reference Range Interpretation Comments B/C Ratio (test code = B/C Ratio) 17 6- [facility]2016-07-17 10:37:00 Test Item Value Reference Range Interpretation Comments CO2 (test code = CO2) 22 -32 [facility]2016-07-17 10:37:00 Test Item Value Reference Range Interpretation Comments AGAP (test code = AGAP) 13.7 10.0-20.0 [facility]2016-07-17 10:37:00 Test Item Value Reference Range Interpretation Comments Glucose Lvl (test code = Glucose Lvl) 98 70-99 [facility]2016-07-17 10:37:00 Test Item Value Reference Range Interpretation Comments Creatinine Lvl (test code = Creatinine 0.46 0.50-1.40 Lvl) [facility]2016-07-17 10:37:00 Test Item Value Reference Range Interpretation Comments Sodium Lvl (test code = Sodium Lvl) 148 135-145 [facility]2016-07-17 10:37:00 Test Item Value Reference Range Interpretation Comments Potassium Lvl (test code = Potassium 2.7 3.5-5.1 Lvl) [facility]2016-07-17 10:37:00 Test Item Value Reference Range Interpretation Comments Chloride Lvl (test code = Chloride Lvl) 115 95-109 [facility]2016-07-17 10:37:00 Test Item Value Reference Range Interpretation Comments BUN (test code = BUN) 8 - [facility]2016-07-17 10:37:00 Test Item Value Reference Range Interpretation Comments Phosphorus (test code = Phosphorus) 2.4 2.5-4.5 [facility] PasoTrrjixvBPSEXCERNG8348-01-80 10:37:00 Test Item Value Reference Range Interpretation Comments Segs (test code = Segs) 79.4 45.0-75.0 [facility] PasoVpsnzsxFYXHSCOCRN1927-49-90 10:37:00 Test Item Value Reference Range Interpretation Comments Eosinophils (test code = 0.2 See_Comment [A utomated message] The Eosinophils) system which ge nerated this result tra nsmitted reference range : <=4.0. The reference r lily was not used to int erpret this result as normal/abnormal . [facility] PasoWpyhhaoUFPXGKXIVJ2121-46-78 10:37:00 Test Item Value Reference Range Interpretation Comments Basophils (test code = 0.1 See_Comment [Aut omated message] The Basophils) system which ge nerated this result tra nsmitted reference range : <=1.0. The reference r lily was not used to int erpret this result as normal/abnormal . [facility] PasoYblcraaAMNOPZYCYN1121-70-69 10:37:00 Test Item Value Reference Range Interpretation Comments Lymphocytes (test code = Lymphocytes) 12.0 20.0-40.0 [facility] PasoUrpwtzgJXFPIUTHFH0773-79-01 10:37:00 Test Item Value Reference Range Interpretation Comments Lymphocytes # (test code = Lymphocytes 1.3 1.0-5.5 #) [facility] PasoWldvubaEYOZRNFMZY1336-08-46 10:37:00 Test Item Value Reference Range Interpretation Comments Segs-Bands # (test code = Segs-Bands #) 8.6 1.5-8.1 [facility] PasoEbxvonzSCNRARQBWO3738-86-45 10:37:00 Test Item Value Reference Range Interpretation Comments Monocytes (test code = Monocytes) 8.3 2.0-12.0 [facility] PasoZkeocecRHVTMSVPUK9846-88-31 10:37:00 Test Item Value Reference Range Interpretation Comments Monocytes # (test code 0.9 See_Comment [Aut omated message] The = Monocytes #) system which generated this result tra nsmitted reference range : <=0.8. The reference r lily was not used to int erpret this result as normal/abnormal . [facility] PasoNdjkuhaKUJSYZDYEF4878-91-56 10:37:00 Test Item Value Reference Range Interpretation Comments RBC (test code = RBC) 3.98 4.20-5.40 [facility] PasoVulerruLSMETQRZEW4959-51-94 10:37:00 Test Item Value Reference Range Interpretation Comments Hct (test code = Hct) 35.5 36.0-48.0 [facility] PasoXycvgkeNXIJPTXHGV3447-34-56 10:37:00 Test Item Value Reference Range Interpretation Comments Hgb (test code = Hgb) 11.9 12.0-16.0 [facility] PasoHtoworbDLMYAWMUCN0367-34-17 10:37:00 Test Item Value Reference Range Interpretation Comments RDW (test code = RDW) 13.4 11.5-14.5 [facility] PasoZnyowhxCKVDOTIPDA6098-80-75 10:37:00 Test Item Value Reference Range Interpretation Comments WBC (test code = WBC) 10.8 3.7-10.4 [facility] PasoQhqkuarMVCVASUKUL4483-80-71 10:37:00 Test Item Value Reference Range Interpretation Comments Platelet (test code = Platelet) 166 133-450 [facility] PasoGbusiehYCWIIYONSF8484-42-43 10:37:00 Test Item Value Reference Range Interpretation Comments MCHC (test code = MCHC) 33.6 32.0-36.0 [facility] PasoZzcnfuhEZAXJGUBJL1363-91-52 10:37:00 Test Item Value Reference Range Interpretation Comments MCH (test code = MCH) 30.0 pg 27.0-31.0 [facility] PasoKqbyljxSIBLHYPSYP2716-33-53 10:37:00 Test Item Value Reference Range Interpretation Comments MCV (test code = MCV) 89.3 80.0-98.0 [facility] PasoLvknpudEFTBXAHPLN5951-20-67 10:37:00 Test Item Value Reference Range Interpretation Comments MPV (test code = MPV) 11.3 7.4-10.4 [facility]2016-07-17 10:37:00 Test Item Value Reference Range Interpretation Comments Magnesium Lvl (test code = Magnesium 1.2 1.8-2.4 Lvl) [facility]2016-07-17 10:37:00 Test Item Value Reference Range Interpretation Comments eGFR (test code = eGFR) 107 [facility]2016-07-17 10:37:00 Test Item Value Reference Range Interpretation Comments Bili Total (test code = Bili Total) 0.6 0.2-1.3 [facility]2016-07-17 10:37:00 Test Item Value Reference Range Interpretation Comments Alk Phos (test code = Alk Phos) 49 39-136 [facility]2016-07-17 10:37:00 Test Item Value Reference Range Interpretation Comments ALANINE AMINOTRANSFERASE 18 See_Comment [A utomated message] (test code = ALANINE The sys tem which AMINOTRANSFERASE) generated this result transmitted ref erence range: <=65. Th e reference range was not used to int erpret this result as normal/abnormal . [facility]2016-07-17 10:37:00 Test Item Value Reference Range Interpretation Comments ASPARTATE TRANSAMINASE 15 See_Comment [Aut omated message] (test code = ASPARTATE The s ystem which TRANSAMINASE) generated this result transmitted ref erence range: <=37. Th e reference range was not used to interpr et this result as normal/abnormal . [facility]2016-07-17 10:37:00 Test Item Value Reference Range Interpretation Comments Total Protein (test code = Total 4.9 6.4-8.4 Protein) [facility]2016-07-17 10:37:00 Test Item Value Reference Range Interpretation Comments Albumin Lvl (test code = Albumin Lvl) 2.2 3.5-5.0 [facility]2016-07-17 10:37:00 Test Item Value Reference Range Interpretation Comments A/G Ratio (test code = A/G Ratio) 0.8 0.7-1.6 [facility]2016-07-17 10:37:00 Test Item Value Reference Range Interpretation Comments Globulin (test code = Globulin) 2.7 2.0-4.0 [facility]2016-07-17 10:37:00 Test Item Value Reference Range Interpretation Comments Calcium Lvl (test code = Calcium Lvl) 6.4 8.5-10.5 [facility]2016-07-17 10:37:00 Test Item Value Reference Range Interpretation Comments B/C Ratio (test code = B/C Ratio) 17 6-25 [facility]2016-07-17 10:37:00 Test Item Value Reference Range Interpretation Comments CO2 (test code = CO2) 22 24-32 [facility]2016-07-17 10:37:00 Test Item Value Reference Range Interpretation Comments AGAP (test code = AGAP) 13.7 10.0-20.0 [facility]2016-07-17 10:37:00 Test Item Value Reference Range Interpretation Comments Glucose Lvl (test code = Glucose Lvl) 98 70-99 [facility]2016-07-17 10:37:00 Test Item Value Reference Range Interpretation Comments Creatinine Lvl (test code = Creatinine 0.46 0.50-1.40 Lvl) [facility]2016-07-17 10:37:00 Test Item Value Reference Range Interpretation Comments Sodium Lvl (test code = Sodium Lvl) 148 135-145 [facility]2016-07-17 10:37:00 Test Item Value Reference Range Interpretation Comments Potassium Lvl (test code = Potassium 2.7 3.5-5.1 Lvl) [facility]2016-07-17 10:37:00 Test Item Value Reference Range Interpretation Comments Chloride Lvl (test code = Chloride Lvl) 115 95-109 [facility]2016-07-17 10:37:00 Test Item Value Reference Range Interpretation Comments BUN (test code = BUN) 8 7-22 [facility]2016-07-17 10:37:00 Test Item Value Reference Range Interpretation Comments Phosphorus (test code = Phosphorus) 2.4 2.5-4.5 [facility] PasoNnummaaTQRIWHZKPR0764-00-46 10:37:00 Test Item Value Reference Range Interpretation Comments Segs (test code = Segs) 79.4 45.0-75.0 [facility] PasoWsaevvrQVJKCILBRB0849-73-66 10:37:00 Test Item Value Reference Range Interpretation Comments Eosinophils (test code = 0.2 See_Comment [A utomated message] The Eosinophils) system which ge nerated this result tra nsmitted reference range : <=4.0. The reference r lily was not used to int erpret this result as normal/abnormal . [facility] PasoOqfhqpkYOAYAYDZEO8837-76-49 10:37:00 Test Item Value Reference Range Interpretation Comments Basophils (test code = 0.1 See_Comment [Aut omated message] The Basophils) system which ge nerated this result tra nsmitted reference range : <=1.0. The reference r lily was not used to int erpret this result as normal/abnormal . [facility] PasoWarcheqAUFTADRHRS0247-67-75 10:37:00 Test Item Value Reference Range Interpretation Comments Lymphocytes (test code = Lymphocytes) 12.0 20.0-40.0 [facility] PasoVcludryQYXENTHSHD3925-19-54 10:37:00 Test Item Value Reference Range Interpretation Comments Lymphocytes # (test code = Lymphocytes 1.3 1.0-5.5 #) [facility] PasoRfwgzvyRIQKXVAVAR7035-03-76 10:37:00 Test Item Value Reference Range Interpretation Comments Segs-Bands # (test code = Segs-Bands #) 8.6 1.5-8.1 [facility] PasoGvlllvtLKNTCTOVHC5482-90-57 10:37:00 Test Item Value Reference Range Interpretation Comments Monocytes (test code = Monocytes) 8.3 2.0-12.0 [facility] PasoIapysgoNTVLMRYGTI0266-51-31 10:37:00 Test Item Value Reference Range Interpretation Comments Monocytes # (test code 0.9 See_Comment [Aut omated message] The = Monocytes #) system which generated this result tra nsmitted reference range : <=0.8. The reference r lily was not used to int erpret this result as normal/abnormal . [facility] PasoJmtpmijJKAVIDZVXB6406-64-74 10:37:00 Test Item Value Reference Range Interpretation Comments RBC (test code = RBC) 3.98 4.20-5.40 [facility] PasoVqmtsrkTDJURGVWZH0586-36-91 10:37:00 Test Item Value Reference Range Interpretation Comments Hct (test code = Hct) 35.5 36.0-48.0 [facility] PasoIntodqqYFWPUSHIVD5959-65-34 10:37:00 Test Item Value Reference Range Interpretation Comments Hgb (test code = Hgb) 11.9 12.0-16.0 [facility] PasoJyelwsyXNWWQGJYTQ8003-77-83 10:37:00 Test Item Value Reference Range Interpretation Comments RDW (test code = RDW) 13.4 11.5-14.5 [facility] PasoOlqrsarIBCERVWDEX0569-85-56 10:37:00 Test Item Value Reference Range Interpretation Comments WBC (test code = WBC) 10.8 3.7-10.4 [facility] PasoDruonebDWLUTTZTIB3118-08-15 10:37:00 Test Item Value Reference Range Interpretation Comments Platelet (test code = Platelet) 166 133-450 [facility] PasoFndqhfjLJVLKOCFTL2533-35-87 10:37:00 Test Item Value Reference Range Interpretation Comments MCHC (test code = MCHC) 33.6 32.0-36.0 [facility] PasoHuyhbiqEKJKPIMKKD0173-84-30 10:37:00 Test Item Value Reference Range Interpretation Comments MCH (test code = MCH) 30.0 pg 27.0-31.0 [facility] PasoBvvnlbkSRLVRPPTZH1940-26-67 10:37:00 Test Item Value Reference Range Interpretation Comments MCV (test code = MCV) 89.3 80.0-98.0 [facility] PasoEvlhugxIHREBLNODR8216-87-86 10:37:00 Test Item Value Reference Range Interpretation Comments MPV (test code = MPV) 11.3 7.4-10.4 [facility]2016-07-17 10:37:00 Test Item Value Reference Range Interpretation Comments Magnesium Lvl (test code = Magnesium 1.2 1.8-2.4 Lvl) [facility]2016-07-17 10:37:00 Test Item Value Reference Range Interpretation Comments eGFR (test code = eGFR) 107 [facility]2016-07-17 10:37:00 Test Item Value Reference Range Interpretation Comments Bili Total (test code = Bili Total) 0.6 0.2-1.3 [facility]2016-07-17 10:37:00 Test Item Value Reference Range Interpretation Comments Alk Phos (test code = Alk Phos) 49 39-136 [facility]2016-07-17 10:37:00 Test Item Value Reference Range Interpretation Comments ALANINE AMINOTRANSFERASE 18 See_Comment [A utomated message] (test code = ALANINE The sys tem which AMINOTRANSFERASE) generated this result transmitted ref erence range: <=65. Th e reference range was not used to int erpret this result as normal/abnormal . [facility]2016-07-17 10:37:00 Test Item Value Reference Range Interpretation Comments ASPARTATE TRANSAMINASE 15 See_Comment [Aut omated message] (test code = ASPARTATE The s ystem which TRANSAMINASE) generated this result transmitted ref erence range: <=37. Th e reference range was not used to interpr et this result as normal/abnormal . [facility]2016-07-17 10:37:00 Test Item Value Reference Range Interpretation Comments Total Protein (test code = Total 4.9 6.4-8.4 Protein) [facility]2016-07-17 10:37:00 Test Item Value Reference Range Interpretation Comments Albumin Lvl (test code = Albumin Lvl) 2.2 3.5-5.0 [facility]2016-07-17 10:37:00 Test Item Value Reference Range Interpretation Comments A/G Ratio (test code = A/G Ratio) 0.8 0.7-1.6 [facility]2016-07-17 10:37:00 Test Item Value Reference Range Interpretation Comments Globulin (test code = Globulin) 2.7 2.0-4.0 [facility]2016-07-17 10:37:00 Test Item Value Reference Range Interpretation Comments Calcium Lvl (test code = Calcium Lvl) 6.4 8.5-10.5 [facility]2016-07-17 10:37:00 Test Item Value Reference Range Interpretation Comments B/C Ratio (test code = B/C Ratio) 17 09-21 [facility]2016-07-17 10:37:00 Test Item Value Reference Range Interpretation Comments CO2 (test code = CO2) - [facility]2016-07-17 10:37:00 Test Item Value Reference Range Interpretation Comments AGAP (test code = AGAP) 13.7 10.0-20.0 [facility]2016-07-17 10:37:00 Test Item Value Reference Range Interpretation Comments Glucose Lvl (test code = Glucose Lvl) 98 70-99 [facility]2016-07-17 10:37:00 Test Item Value Reference Range Interpretation Comments Creatinine Lvl (test code = Creatinine 0.46 0.50-1.40 Lvl) [facility]2016-07-17 10:37:00 Test Item Value Reference Range Interpretation Comments Sodium Lvl (test code = Sodium Lvl) 148 135-145 [facility]2016-07-17 10:37:00 Test Item Value Reference Range Interpretation Comments Potassium Lvl (test code = Potassium 2.7 3.5-5.1 Lvl) [facility]2016-07-17 10:37:00 Test Item Value Reference Range Interpretation Comments Chloride Lvl (test code = Chloride Lvl) 115 95-109 [facility]2016-07-17 10:37:00 Test Item Value Reference Range Interpretation Comments BUN (test code = BUN) 8 10-18 [facility]2016-07-17 10:37:00 Test Item Value Reference Range Interpretation Comments Phosphorus (test code = Phosphorus) 2.4 2.5-4.5 [facility]DronmrsXUABAKYHKO4106-34-59 10:37:00 Test Item Value Reference Range Interpretation Comments Segs (test code = Segs) 79.4 45.0-75.0 [facility] PasoBqvwheeCHGKNUIZWR9443-13-28 10:37:00 Test Item Value Reference Range Interpretation Comments Eosinophils (test code = 0.2 See_Comment [A utomated message] The Eosinophils) system which ge nerated this result tra nsmitted reference range : <=4.0. The reference r lily was not used to int erpret this result as normal/abnormal . [facility] PasoCcyxrrmZHIMNPWWTS5949-61-77 10:37:00 Test Item Value Reference Range Interpretation Comments Basophils (test code = 0.1 See_Comment [Aut omated message] The Basophils) system which ge nerated this result tra nsmitted reference range : <=1.0. The reference r lily was not used to int erpret this result as normal/abnormal . [facility] PasoQtwsnzlEINNNQOHOW9101-93-87 10:37:00 Test Item Value Reference Range Interpretation Comments Lymphocytes (test code = Lymphocytes) 12.0 20.0-40.0 [facility] PasoFljdvmqOTADKNJUIO5268-43-81 10:37:00 Test Item Value Reference Range Interpretation Comments Lymphocytes # (test code = Lymphocytes 1.3 1.0-5.5 #) [facility] PasoWhxuhqhYWVGQVLMBU0558-62-94 10:37:00 Test Item Value Reference Range Interpretation Comments Segs-Bands # (test code = Segs-Bands #) 8.6 1.5-8.1 [facility] PasoJdheiofOYYNAMXVFA4538-96-05 10:37:00 Test Item Value Reference Range Interpretation Comments Monocytes (test code = Monocytes) 8.3 2.0-12.0 [facility] PasoEzfghsjNWPBMGDIEQ4983-41-28 10:37:00 Test Item Value Reference Range Interpretation Comments Monocytes # (test code 0.9 See_Comment [Aut omated message] The = Monocytes #) system which generated this result tra nsmitted reference range : <=0.8. The reference r lily was not used to int erpret this result as normal/abnormal . [facility] PasoMhvenirEESJINKULT6044-81-56 10:37:00 Test Item Value Reference Range Interpretation Comments RBC (test code = RBC) 3.98 4.20-5.40 [facility] PasoRwdzgsfRCEJXJOQWA1660-21-12 10:37:00 Test Item Value Reference Range Interpretation Comments Hct (test code = Hct) 35.5 36.0-48.0 [facility] PasoZkadrlhDAMXEITXJO5562-43-04 10:37:00 Test Item Value Reference Range Interpretation Comments Hgb (test code = Hgb) 11.9 12.0-16.0 [facility] PasoUqpxeauTVNHCDZDDB4220-14-01 10:37:00 Test Item Value Reference Range Interpretation Comments RDW (test code = RDW) 13.4 11.5-14.5 [facility] PasoHmgbdziXLFYDWBQYD6456-28-54 10:37:00 Test Item Value Reference Range Interpretation Comments WBC (test code = WBC) 10.8 3.7-10.4 [facility] PasoNogdyppLUYDFLZHSQ7488-24-74 10:37:00 Test Item Value Reference Range Interpretation Comments Platelet (test code = Platelet) 166 133-450 [facility] PasoNuqbaflAXRQYWNEIC7982-35-38 10:37:00 Test Item Value Reference Range Interpretation Comments MCHC (test code = MCHC) 33.6 32.0-36.0 [facility] PasoYipjurwBNAVIEENIM4941-63-20 10:37:00 Test Item Value Reference Range Interpretation Comments MCH (test code = MCH) 30.0 pg 27.0-31.0 [facility] PasoOjhskylBWYEAARJPD8993-88-21 10:37:00 Test Item Value Reference Range Interpretation Comments MCV (test code = MCV) 89.3 80.0-98.0 [facility] PasoVgqqubgTBWKCDECVP7422-34-73 10:37:00 Test Item Value Reference Range Interpretation Comments MPV (test code = MPV) 11.3 7.4-10.4 [facility]2016-07-17 10:37:00 Test Item Value Reference Range Interpretation Comments Magnesium Lvl (test code = Magnesium 1.2 1.8-2.4 Lvl) [facility]2016-07-17 10:37:00 Test Item Value Reference Range Interpretation Comments eGFR (test code = eGFR) 107 [facility]2016-07-17 10:37:00 Test Item Value Reference Range Interpretation Comments Bili Total (test code = Bili Total) 0.6 0.2-1.3 [facility]2016-07-17 10:37:00 Test Item Value Reference Range Interpretation Comments Alk Phos (test code = Alk Phos) 49 39-136 [place] 523386-07-17 10:37:00 Test Item Value Reference Range Interpretation Comments ALANINE AMINOTRANSFERASE 18 See_Comment [A utomated message] (test code = ALANINE The sys tem which AMINOTRANSFERASE) generated this result transmitted ref erence range: <=65. Th e reference range was not used to int erpret this result as normal/abnormal . [facility]2016-07-17 10:37:00 Test Item Value Reference Range Interpretation Comments ASPARTATE TRANSAMINASE 15 See_Comment [Aut omated message] (test code = ASPARTATE The s ystem which TRANSAMINASE) generated this result transmitted ref erence range: <=37. Th e reference range was not used to interpr et this result as normal/abnormal . [facility]2016-07-17 10:37:00 Test Item Value Reference Range Interpretation Comments Total Protein (test code = Total 4.9 6.4-8.4 Protein) [facility]2016-07-17 10:37:00 Test Item Value Reference Range Interpretation Comments Albumin Lvl (test code = Albumin Lvl) 2.2 3.5-5.0 [facility]2016-07-17 10:37:00 Test Item Value Reference Range Interpretation Comments A/G Ratio (test code = A/G Ratio) 0.8 0.7-1.6 [facility]2016-07-17 10:37:00 Test Item Value Reference Range Interpretation Comments Globulin (test code = Globulin) 2.7 2.0-4.0 [facility]2016-07-17 10:37:00 Test Item Value Reference Range Interpretation Comments Calcium Lvl (test code = Calcium Lvl) 6.4 8.5-10.5 [facility]2016-07-17 10:37:00 Test Item Value Reference Range Interpretation Comments B/C Ratio (test code = B/C Ratio) 17 - [facility]2016-07-17 10:37:00 Test Item Value Reference Range Interpretation Comments CO2 (test code = CO2) - [facility]2016-07-17 10:37:00 Test Item Value Reference Range Interpretation Comments AGAP (test code = AGAP) 13.7 10.0-20.0 [facility]2016-07-17 10:37:00 Test Item Value Reference Range Interpretation Comments Glucose Lvl (test code = Glucose Lvl) 98 70-99 [facility]2016-07-17 10:37:00 Test Item Value Reference Range Interpretation Comments Creatinine Lvl (test code = Creatinine 0.46 0.50-1.40 Lvl) [facility]2016-07-17 10:37:00 Test Item Value Reference Range Interpretation Comments Sodium Lvl (test code = Sodium Lvl) 148 135-145 [facility]2016-07-17 10:37:00 Test Item Value Reference Range Interpretation Comments Potassium Lvl (test code = Potassium 2.7 3.5-5.1 Lvl) [facility]2016-07-17 10:37:00 Test Item Value Reference Range Interpretation Comments Chloride Lvl (test code = Chloride Lvl) 115 95-109 [facility]2016-07-17 10:37:00 Test Item Value Reference Range Interpretation Comments BUN (test code = BUN) 8 7-22 [facility]2016-07-17 10:37:00 Test Item Value Reference Range Interpretation Comments Phosphorus (test code = Phosphorus) 2.4 2.5-4.5 [facility]HistozfRLSGLOQSWM4003-90-86 10:37:00 Test Item Value Reference Range Interpretation Comments Segs (test code = Segs) 79.4 45.0-75.0 [facility] PasoIqmeayoGRKLWTKIZQ9356-83-28 10:37:00 Test Item Value Reference Range Interpretation Comments Eosinophils (test code = 0.2 See_Comment [A utomated message] The Eosinophils) system which nerated this result tra nsmitted reference range : <=4.0. The reference r lily was not used to int erpret this result as normal/abnormal . [facility] PasoRjvgzoaDAENXPCQKK9531-47-93 10:37:00 Test Item Value Reference Range Interpretation Comments Basophils (test code = 0.1 See_Comment [Aut omated message] The Basophils) system which ge nerated this result tra nsmitted reference range : <=1.0. The reference r lily was not used to int erpret this result as normal/abnormal . [facility] PasoEietovmKNUNBGDBJT8965-52-08 10:37:00 Test Item Value Reference Range Interpretation Comments Lymphocytes (test code = Lymphocytes) 12.0 20.0-40.0 [facility] PasoVtmedzzAIUGEZKFXH9479-11-96 10:37:00 Test Item Value Reference Range Interpretation Comments Lymphocytes # (test code = Lymphocytes 1.3 1.0-5.5 #) [facility] PasoJazsllxPJTUKOHAOL3791-23-48 10:37:00 Test Item Value Reference Range Interpretation Comments Segs-Bands # (test code = Segs-Bands #) 8.6 1.5-8.1 [facility] PasoGxljkulJYTQMLKEIN2019-25-46 10:37:00 Test Item Value Reference Range Interpretation Comments Monocytes (test code = Monocytes) 8.3 2.0-12.0 [facility] PasoKzwuadrFBZBIKLKDR8229-96-91 10:37:00 Test Item Value Reference Range Interpretation Comments Monocytes # (test code 0.9 See_Comment [Aut omated message] The = Monocytes #) system which generated this result tra nsmitted reference range : <=0.8. The reference r lily was not used to int erpret this result as normal/abnormal . [facility] PasoBiysxgaRZEDNNCWIV1933-27-23 10:37:00 Test Item Value Reference Range Interpretation Comments RBC (test code = RBC) 3.98 4.20-5.40 [facility] PasoJpxvkzsZKVPJJCIIU9044-57-43 10:37:00 Test Item Value Reference Range Interpretation Comments Hct (test code = Hct) 35.5 36.0-48.0 [facility] PasoIrarqlbLGBUEMLYBY1141-58-87 10:37:00 Test Item Value Reference Range Interpretation Comments Hgb (test code = Hgb) 11.9 12.0-16.0 [facility] PasoKgtjbhzFZPHUYECAA2163-37-77 10:37:00 Test Item Value Reference Range Interpretation Comments RDW (test code = RDW) 13.4 11.5-14.5 [facility] PasoPpicauhRURWGSHKTX2872-68-02 10:37:00 Test Item Value Reference Range Interpretation Comments WBC (test code = WBC) 10.8 3.7-10.4 [facility] PasoSpdzyypNMRRRMTPEI0994-87-63 10:37:00 Test Item Value Reference Range Interpretation Comments Platelet (test code = Platelet) 166 133-450 [facility] PasoQbqvikaYQHIUUZAGE8145-97-34 10:37:00 Test Item Value Reference Range Interpretation Comments MCHC (test code = MCHC) 33.6 32.0-36.0 [facility] PasoGfrpmunTDCIBPEEOE2272-66-07 10:37:00 Test Item Value Reference Range Interpretation Comments MCH (test code = MCH) 30.0 pg 27.0-31.0 [facility] PasoOocreclKRJHWJPNXP8253-48-85 10:37:00 Test Item Value Reference Range Interpretation Comments MCV (test code = MCV) 89.3 80.0-98.0 [facility] PasoPzhvebiQNMXCHBRIV2769-78-87 10:37:00 Test Item Value Reference Range Interpretation Comments MPV (test code = MPV) 11.3 7.4-10.4 [facility]2016-07-17 10:37:00 Test Item Value Reference Range Interpretation Comments Magnesium Lvl (test code = Magnesium 1.2 1.8-2.4 Lvl) [facility]2016-07-17 10:37:00 Test Item Value Reference Range Interpretation Comments eGFR (test code = eGFR) 107 [facility]2016-07-17 10:37:00 Test Item Value Reference Range Interpretation Comments Bili Total (test code = Bili Total) 0.6 0.2-1.3 [facility]2016-07-17 10:37:00 Test Item Value Reference Range Interpretation Comments Alk Phos (test code = Alk Phos) 49 39-136 [facility]2016-07-17 10:37:00 Test Item Value Reference Range Interpretation Comments ALANINE AMINOTRANSFERASE 18 See_Comment [A utomated message] (test code = ALANINE The sys tem which AMINOTRANSFERASE) generated this result transmitted ref erence range: <=65. Th e reference range was not used to int erpret this result as normal/abnormal . [facility]2016-07-17 10:37:00 Test Item Value Reference Range Interpretation Comments ASPARTATE TRANSAMINASE 15 See_Comment [Aut omated message] (test code = ASPARTATE The s ystem which TRANSAMINASE) generated this result transmitted ref erence range: <=37. Th e reference range was not used to interpr et this result as normal/abnormal . [facility]2016-07-17 10:37:00 Test Item Value Reference Range Interpretation Comments Total Protein (test code = Total 4.9 6.4-8.4 Protein) [facility]2016-07-17 10:37:00 Test Item Value Reference Range Interpretation Comments Albumin Lvl (test code = Albumin Lvl) 2.2 3.5-5.0 [facility]2016-07-17 10:37:00 Test Item Value Reference Range Interpretation Comments A/G Ratio (test code = A/G Ratio) 0.8 0.7-1.6 [facility]2016-07-17 10:37:00 Test Item Value Reference Range Interpretation Comments Globulin (test code = Globulin) 2.7 2.0-4.0 [facility]2016-07-17 10:37:00 Test Item Value Reference Range Interpretation Comments Calcium Lvl (test code = Calcium Lvl) 6.4 8.5-10.5 [facility]2016-07-17 10:37:00 Test Item Value Reference Range Interpretation Comments B/C Ratio (test code = B/C Ratio) 17 6-25 [facility]2016-07-17 10:37:00 Test Item Value Reference Range Interpretation Comments CO2 (test code = CO2) 22 24-32 [facility]2016-07-17 10:37:00 Test Item Value Reference Range Interpretation Comments AGAP (test code = AGAP) 13.7 10.0-20.0 [facility]2016-07-17 10:37:00 Test Item Value Reference Range Interpretation Comments Glucose Lvl (test code = Glucose Lvl) 98 70-99 [facility]2016-07-17 10:37:00 Test Item Value Reference Range Interpretation Comments Creatinine Lvl (test code = Creatinine 0.46 0.50-1.40 Lvl) [facility]2016-07-17 10:37:00 Test Item Value Reference Range Interpretation Comments Sodium Lvl (test code = Sodium Lvl) 148 135-145 [facility]2016-07-17 10:37:00 Test Item Value Reference Range Interpretation Comments Potassium Lvl (test code = Potassium 2.7 3.5-5.1 Lvl) [facility]2016-07-17 10:37:00 Test Item Value Reference Range Interpretation Comments Chloride Lvl (test code = Chloride Lvl) 115 95-109 [facility]2016-07-17 10:37:00 Test Item Value Reference Range Interpretation Comments BUN (test code = BUN) 8 7-22 [facility]2016-07-17 10:37:00 Test Item Value Reference Range Interpretation Comments Phosphorus (test code = Phosphorus) 2.4 2.5-4.5 [facility] PasoLvnfbtrFSAZKCPYDB4048-46-28 10:37:00 Test Item Value Reference Range Interpretation Comments Segs (test code = Segs) 79.4 45.0-75.0 [facility] PasoGzbpjvuNLZDUMOLAG7185-14-53 10:37:00 Test Item Value Reference Range Interpretation Comments Eosinophils (test code = 0.2 See_Comment [A utomated message] The Eosinophils) system which ge nerated this result tra nsmitted reference range : <=4.0. The reference r lily was not used to int erpret this result as normal/abnormal . [facility] PasoOftkkufYEAPVTOJKO5849-31-50 10:37:00 Test Item Value Reference Range Interpretation Comments Basophils (test code = 0.1 See_Comment [Aut omated message] The Basophils) system which ge nerated this result tra nsmitted reference range : <=1.0. The reference r lily was not used to int erpret this result as normal/abnormal . [facility] PasoLxspvulRHZZTAXTTE3058-92-36 10:37:00 Test Item Value Reference Range Interpretation Comments Lymphocytes (test code = Lymphocytes) 12.0 20.0-40.0 [facility] PasoCdrhewaSEQVBZZINI9492-65-97 10:37:00 Test Item Value Reference Range Interpretation Comments Lymphocytes # (test code = Lymphocytes 1.3 1.0-5.5 #) [facility] PasoIiedsevLJNDKOYECF6567-09-31 10:37:00 Test Item Value Reference Range Interpretation Comments Segs-Bands # (test code = Segs-Bands #) 8.6 1.5-8.1 [facility] PasoTgmpiikDPUVPICQDA5527-09-68 10:37:00 Test Item Value Reference Range Interpretation Comments Monocytes (test code = Monocytes) 8.3 2.0-12.0 [facility] PasoYgxooafNQSBLPADWZ8746-13-84 10:37:00 Test Item Value Reference Range Interpretation Comments Monocytes # (test code 0.9 See_Comment [Aut omated message] The = Monocytes #) system which generated this result tra nsmitted reference range : <=0.8. The reference r lily was not used to int erpret this result as normal/abnormal . [facility] PasoXmrxpgeIZTJJXOKOB7965-92-22 10:37:00 Test Item Value Reference Range Interpretation Comments RBC (test code = RBC) 3.98 4.20-5.40 [facility] PasoSfzlthsHYQXSXMIHV9819-73-88 10:37:00 Test Item Value Reference Range Interpretation Comments Hct (test code = Hct) 35.5 36.0-48.0 [facility] PasoYcpgnamODNKKQDTIW8503-33-26 10:37:00 Test Item Value Reference Range Interpretation Comments Hgb (test code = Hgb) 11.9 12.0-16.0 [facility] PasoLhcnrzoTDDUYSZISX9840-24-68 10:37:00 Test Item Value Reference Range Interpretation Comments RDW (test code = RDW) 13.4 11.5-14.5 [facility] PasoZwzzvmwBPKEWFHROI2005-68-46 10:37:00 Test Item Value Reference Range Interpretation Comments WBC (test code = WBC) 10.8 3.7-10.4 [facility] PasoXogvnmrEHQTNRGYYN2734-37-69 10:37:00 Test Item Value Reference Range Interpretation Comments Platelet (test code = Platelet) 166 133-450 [facility] PasoDetitqfDAUPENKBKX2725-80-79 10:37:00 Test Item Value Reference Range Interpretation Comments MCHC (test code = MCHC) 33.6 32.0-36.0 [facility] PasoRruzlnuXQFBGHRDEJ0015-48-36 10:37:00 Test Item Value Reference Range Interpretation Comments MCH (test code = MCH) 30.0 pg 27.0-31.0 [facility] PasoSupkvuwIOMQCRNGAX6919-22-20 10:37:00 Test Item Value Reference Range Interpretation Comments MCV (test code = MCV) 89.3 80.0-98.0 [facility] PasoEbjucehAULCNUYVRS3827-46-05 10:37:00 Test Item Value Reference Range Interpretation Comments MPV (test code = MPV) 11.3 7.4-10.4 [facility]2016-07-17 10:37:00 Test Item Value Reference Range Interpretation Comments Magnesium Lvl (test code = Magnesium 1.2 1.8-2.4 Lvl) [facility]2016-07-17 10:37:00 Test Item Value Reference Range Interpretation Comments eGFR (test code = eGFR) 107 [facility]2016-07-17 10:37:00 Test Item Value Reference Range Interpretation Comments Bili Total (test code = Bili Total) 0.6 0.2-1.3 [facility]2016-07-17 10:37:00 Test Item Value Reference Range Interpretation Comments Alk Phos (test code = Alk Phos) 49 39-136 [facility]2016-07-17 10:37:00 Test Item Value Reference Range Interpretation Comments ALANINE AMINOTRANSFERASE 18 See_Comment [A utomated message] (test code = ALANINE The sys tem which AMINOTRANSFERASE) generated this result transmitted ref erence range: <=65. Th e reference range was not used to int erpret this result as normal/abnormal . [facility]2016-07-17 10:37:00 Test Item Value Reference Range Interpretation Comments ASPARTATE TRANSAMINASE 15 See_Comment [Aut omated message] (test code = ASPARTATE The s ystem which TRANSAMINASE) generated this result transmitted ref erence range: <=37. Th e reference range was not used to interpr et this result as normal/abnormal . [facility]2016-07-17 10:37:00 Test Item Value Reference Range Interpretation Comments Total Protein (test code = Total 4.9 6.4-8.4 Protein) [facility]2016-07-17 10:37:00 Test Item Value Reference Range Interpretation Comments Albumin Lvl (test code = Albumin Lvl) 2.2 3.5-5.0 [facility]2016-07-17 10:37:00 Test Item Value Reference Range Interpretation Comments A/G Ratio (test code = A/G Ratio) 0.8 0.7-1.6 [facility]2016-07-17 10:37:00 Test Item Value Reference Range Interpretation Comments Globulin (test code = Globulin) 2.7 2.0-4.0 [facility]2016-07-17 10:37:00 Test Item Value Reference Range Interpretation Comments Calcium Lvl (test code = Calcium Lvl) 6.4 8.5-10.5 [facility]2016-07-17 10:37:00 Test Item Value Reference Range Interpretation Comments B/C Ratio (test code = B/C Ratio) 17 6-25 [facility]2016-07-17 10:37:00 Test Item Value Reference Range Interpretation Comments CO2 (test code = CO2) 22 24-32 [facility]2016-07-17 10:37:00 Test Item Value Reference Range Interpretation Comments AGAP (test code = AGAP) 13.7 10.0-20.0 [facility]2016-07-17 10:37:00 Test Item Value Reference Range Interpretation Comments Glucose Lvl (test code = Glucose Lvl) 98 70-99 [facility]2016-07-17 10:37:00 Test Item Value Reference Range Interpretation Comments Creatinine Lvl (test code = Creatinine 0.46 0.50-1.40 Lvl) [facility]2016-07-17 10:37:00 Test Item Value Reference Range Interpretation Comments Sodium Lvl (test code = Sodium Lvl) 148 135-145 [facility]2016-07-17 10:37:00 Test Item Value Reference Range Interpretation Comments Potassium Lvl (test code = Potassium 2.7 3.5-5.1 Lvl) [facility]2016-07-17 10:37:00 Test Item Value Reference Range Interpretation Comments Chloride Lvl (test code = Chloride Lvl) 115 95-109 [facility]2016-07-17 10:37:00 Test Item Value Reference Range Interpretation Comments BUN (test code = BUN) 8 7-22 [facility]2016-07-17 10:37:00 Test Item Value Reference Range Interpretation Comments Phosphorus (test code = Phosphorus) 2.4 2.5-4.5 [facility] PasoXavjlwdNKGMAXDPQH3915-59-53 10:37:00 Test Item Value Reference Range Interpretation Comments Segs (test code = Segs) 79.4 45.0-75.0 [place]186-07-17 10:37:00 Test Item Value Reference Range Interpretation Comments Eosinophils (test code = 0.2 See_Comment [A utomated message] The Eosinophils) system which ge nerated this result tra nsmitted reference range : <=4.0. The reference r lily was not used to int erpret this result as normal/abnormal . [facility] PasoQhgiatbSZUNDGUHLX5167-35-15 10:37:00 Test Item Value Reference Range Interpretation Comments Basophils (test code = 0.1 See_Comment [Aut omated message] The Basophils) system which ge nerated this result tra nsmitted reference range : <=1.0. The reference r lily was not used to int erpret this result as normal/abnormal . [facility] PasoVlbaezgRZEKZOWZSE6179-64-65 10:37:00 Test Item Value Reference Range Interpretation Comments Lymphocytes (test code = Lymphocytes) 12.0 20.0-40.0 [facility] PasoQmshlsqRDCZKDKCNB8094-04-02 10:37:00 Test Item Value Reference Range Interpretation Comments Lymphocytes # (test code = Lymphocytes 1.3 1.0-5.5 #) [facility] PasoAnxzscjLJBITPHEAJ9347-99-45 10:37:00 Test Item Value Reference Range Interpretation Comments Segs-Bands # (test code = Segs-Bands #) 8.6 1.5-8.1 [facility] PasoGhthzpmGFLIOTSUVU9189-07-33 10:37:00 Test Item Value Reference Range Interpretation Comments Monocytes (test code = Monocytes) 8.3 2.0-12.0 [facility] PasoIkbrddcDJEJQCNELJ5182-89-72 10:37:00 Test Item Value Reference Range Interpretation Comments Monocytes # (test code 0.9 See_Comment [Aut omated message] The = Monocytes #) system which generated this result tra nsmitted reference range : <=0.8. The reference r lily was not used to int erpret this result as normal/abnormal . [facility] PasoBzxeqvnMPHPCDUMWP4571-47-47 10:37:00 Test Item Value Reference Range Interpretation Comments RBC (test code = RBC) 3.98 4.20-5.40 [facility] PasoNcvdlhaAFLXITGCEM8769-55-97 10:37:00 Test Item Value Reference Range Interpretation Comments Hct (test code = Hct) 35.5 36.0-48.0 [facility] PasoGveirgdUXRVJHCFQF2033-83-87 10:37:00 Test Item Value Reference Range Interpretation Comments Hgb (test code = Hgb) 11.9 12.0-16.0 [facility] PasoTudrsilHKSIBZFGQA3351-85-13 10:37:00 Test Item Value Reference Range Interpretation Comments RDW (test code = RDW) 13.4 11.5-14.5 [facility] PasoIyjapcpTMUQITMPBI5724-87-20 10:37:00 Test Item Value Reference Range Interpretation Comments WBC (test code = WBC) 10.8 3.7-10.4 [facility] PasoSgvsiraEAPPRWIJGS0618-86-54 10:37:00 Test Item Value Reference Range Interpretation Comments Platelet (test code = Platelet) 166 133-450 [facility] PasoMsegnqjUOBYPYZDWF7916-61-37 10:37:00 Test Item Value Reference Range Interpretation Comments MCHC (test code = MCHC) 33.6 32.0-36.0 [facility] PasoWkwkercQNFXTHBJLY1403-16-42 10:37:00 Test Item Value Reference Range Interpretation Comments MCH (test code = MCH) 30.0 pg 27.0-31.0 [facility] PasoRaidbjuCXIPJWMDOX6740-11-25 10:37:00 Test Item Value Reference Range Interpretation Comments MCV (test code = MCV) 89.3 80.0-98.0 [facility] PasoZnlbwpvZTDWNOVDQU3681-00-86 10:37:00 Test Item Value Reference Range Interpretation Comments MPV (test code = MPV) 11.3 7.4-10.4 [facility]2016-07-17 10:37:00 Test Item Value Reference Range Interpretation Comments Magnesium Lvl (test code = Magnesium 1.2 1.8-2.4 Lvl) [facility]2016-07-17 10:37:00 Test Item Value Reference Range Interpretation Comments eGFR (test code = eGFR) 107 [facility]2016-07-17 10:37:00 Test Item Value Reference Range Interpretation Comments Bili Total (test code = Bili Total) 0.6 0.2-1.3 [facility]2016-07-17 10:37:00 Test Item Value Reference Range Interpretation Comments Alk Phos (test code = Alk Phos) 49 39-136 [facility]2016-07-17 10:37:00 Test Item Value Reference Range Interpretation Comments ALANINE AMINOTRANSFERASE 18 See_Comment [A utomated message] (test code = ALANINE The sys tem which AMINOTRANSFERASE) generated this result transmitted ref erence range: <=65. Th e reference range was not used to int erpret this result as normal/abnormal . [facility]2016-07-17 10:37:00 Test Item Value Reference Range Interpretation Comments ASPARTATE TRANSAMINASE 15 See_Comment [Aut omated message] (test code = ASPARTATE The s ystem which TRANSAMINASE) generated this result transmitted ref erence range: <=37. Th e reference range was not used to interpr et this result as normal/abnormal . [facility]2016-07-17 10:37:00 Test Item Value Reference Range Interpretation Comments Total Protein (test code = Total 4.9 6.4-8.4 Protein) [facility]2016-07-17 10:37:00 Test Item Value Reference Range Interpretation Comments Albumin Lvl (test code = Albumin Lvl) 2.2 3.5-5.0 [facility]2016-07-17 10:37:00 Test Item Value Reference Range Interpretation Comments A/G Ratio (test code = A/G Ratio) 0.8 0.7-1.6 [facility]2016-07-17 10:37:00 Test Item Value Reference Range Interpretation Comments Globulin (test code = Globulin) 2.7 2.0-4.0 [facility]2016-07-17 10:37:00 Test Item Value Reference Range Interpretation Comments Calcium Lvl (test code = Calcium Lvl) 6.4 8.5-10.5 [facility]2016-07-17 10:37:00 Test Item Value Reference Range Interpretation Comments B/C Ratio (test code = B/C Ratio) 17 6-25 [facility]2016-07-17 10:37:00 Test Item Value Reference Range Interpretation Comments CO2 (test code = CO2) 22 24-32 [facility]2016-07-17 10:37:00 Test Item Value Reference Range Interpretation Comments AGAP (test code = AGAP) 13.7 10.0-20.0 [facility]2016-07-17 10:37:00 Test Item Value Reference Range Interpretation Comments Glucose Lvl (test code = Glucose Lvl) 98 70-99 [facility]2016-07-17 10:37:00 Test Item Value Reference Range Interpretation Comments Creatinine Lvl (test code = Creatinine 0.46 0.50-1.40 Lvl) [facility]2016-07-17 10:37:00 Test Item Value Reference Range Interpretation Comments Sodium Lvl (test code = Sodium Lvl) 148 135-145 [facility]2016-07-17 10:37:00 Test Item Value Reference Range Interpretation Comments Potassium Lvl (test code = Potassium 2.7 3.5-5.1 Lvl) [facility]2016-07-17 10:37:00 Test Item Value Reference Range Interpretation Comments Chloride Lvl (test code = Chloride Lvl) 115 95-109 [facility]2016-07-17 10:37:00 Test Item Value Reference Range Interpretation Comments BUN (test code = BUN) 8 7-22 [facility]2016-07-17 10:37:00 Test Item Value Reference Range Interpretation Comments Magnesium Lvl (test code = Magnesium 1.2 1.8-2.4 Lvl) [facility]2016-07-17 10:37:00 Test Item Value Reference Range Interpretation Comments eGFR (test code = eGFR) 107 [facility]2016-07-17 10:37:00 Test Item Value Reference Range Interpretation Comments Bili Total (test code = Bili Total) 0.6 0.2-1.3 [facility]2016-07-17 10:37:00 Test Item Value Reference Range Interpretation Comments Alk Phos (test code = Alk Phos) 49 39-136 [facility]2016-07-17 10:37:00 Test Item Value Reference Range Interpretation Comments ALANINE AMINOTRANSFERASE 18 See_Comment [A utomated message] (test code = ALANINE The sys tem which AMINOTRANSFERASE) generated this result transmitted ref erence range: <=65. Th e reference range was not used to int erpret this result as normal/abnormal . [facility]2016-07-17 10:37:00 Test Item Value Reference Range Interpretation Comments ASPARTATE TRANSAMINASE 15 See_Comment [Aut omated message] (test code = ASPARTATE The s ystem which TRANSAMINASE) generated this result transmitted ref erence range: <=37. Th e reference range was not used to interpr et this result as normal/abnormal . [facility]2016-07-17 10:37:00 Test Item Value Reference Range Interpretation Comments Total Protein (test code = Total 4.9 6.4-8.4 Protein) [facility]2016-07-17 10:37:00 Test Item Value Reference Range Interpretation Comments Albumin Lvl (test code = Albumin Lvl) 2.2 3.5-5.0 [facility]2016-07-17 10:37:00 Test Item Value Reference Range Interpretation Comments A/G Ratio (test code = A/G Ratio) 0.8 0.7-1.6 [facility]2016-07-17 10:37:00 Test Item Value Reference Range Interpretation Comments Phosphorus (test code = Phosphorus) 2.4 2.5-4.5 [facility]2016-07-17 10:37:00 Test Item Value Reference Range Interpretation Comments Globulin (test code = Globulin) 2.7 2.0-4.0 [facility]2016-07-17 10:37:00 Test Item Value Reference Range Interpretation Comments Calcium Lvl (test code = Calcium Lvl) 6.4 8.5-10.5 [facility]2016-07-17 10:37:00 Test Item Value Reference Range Interpretation Comments B/C Ratio (test code = B/C Ratio) 17 6-25 [facility]2016-07-17 10:37:00 Test Item Value Reference Range Interpretation Comments CO2 (test code = CO2) 22 24-32 [facility]2016-07-17 10:37:00 Test Item Value Reference Range Interpretation Comments AGAP (test code = AGAP) 13.7 10.0-20.0 [facility]2016-07-17 10:37:00 Test Item Value Reference Range Interpretation Comments Glucose Lvl (test code = Glucose Lvl) 98 70-99 [facility]2016-07-17 10:37:00 Test Item Value Reference Range Interpretation Comments Creatinine Lvl (test code = Creatinine 0.46 0.50-1.40 Lvl) [facility]2016-07-17 10:37:00 Test Item Value Reference Range Interpretation Comments Sodium Lvl (test code = Sodium Lvl) 148 135-145 [facility]2016-07-17 10:37:00 Test Item Value Reference Range Interpretation Comments Potassium Lvl (test code = Potassium 2.7 3.5-5.1 Lvl) [facility]2016-07-17 10:37:00 Test Item Value Reference Range Interpretation Comments Chloride Lvl (test code = Chloride Lvl) 115 95-109 [facility] 10:37:00 Test Item Value Reference Range Interpretation Comments Segs (test code = Segs) 79.4 45.0-75.0 [facility]2016-07-17 10:37:00 Test Item Value Reference Range Interpretation Comments BUN (test code = BUN) 8 7-22 [facility]2016-07-17 10:37:00 Test Item Value Reference Range Interpretation Comments Phosphorus (test code = Phosphorus) 2.4 2.5-4.5 [facility]AlxpgyqJPWNCHISSJ7972-59-41 10:37:00 Test Item Value Reference Range Interpretation Comments Segs (test code = Segs) 79.4 45.0-75.0 [facility] PasoVghgookKQQXMHSHEI2216-62-02 10:37:00 Test Item Value Reference Range Interpretation Comments Eosinophils (test code = 0.2 See_Comment [A utomated message] The Eosinophils) system which ge nerated this result tra nsmitted reference range : <=4.0. The reference r lily was not used to int erpret this result as normal/abnormal . [facility] PasoJzkxcyoZWOZHQMFXV1028-34-66 10:37:00 Test Item Value Reference Range Interpretation Comments Basophils (test code = 0.1 See_Comment [Aut omated message] The Basophils) system which ge nerated this result tra nsmitted reference range : <=1.0. The reference r lily was not used to int erpret this result as normal/abnormal . [facility] PasoUzqnvbaTQGGSRPDUC2421-87-21 10:37:00 Test Item Value Reference Range Interpretation Comments Lymphocytes (test code = Lymphocytes) 12.0 20.0-40.0 [facility] PasoAnosoxbUJOXTPHLWR7339-34-40 10:37:00 Test Item Value Reference Range Interpretation Comments Lymphocytes # (test code = Lymphocytes 1.3 1.0-5.5 #) [facility] PasoXbrjcxtTGZVRHFJQW7691-81-69 10:37:00 Test Item Value Reference Range Interpretation Comments Segs-Bands # (test code = Segs-Bands #) 8.6 1.5-8.1 [facility] PasoDuteclwIWTFZKQGZA6288-66-55 10:37:00 Test Item Value Reference Range Interpretation Comments Monocytes (test code = Monocytes) 8.3 2.0-12.0 [facility] PasoCwltlqjUEEKOVCJBL4906-57-12 10:37:00 Test Item Value Reference Range Interpretation Comments Monocytes # (test code 0.9 See_Comment [Aut omated message] The = Monocytes #) system which generated this result tra nsmitted reference range : <=0.8. The reference r lily was not used to int erpret this result as normal/abnormal . [facility] PasoHmrbruuUMTFZESUKC1800-73-91 10:37:00 Test Item Value Reference Range Interpretation Comments Eosinophils (test code = 0.2 See_Comment [A utomated message] The Eosinophils) system which ge nerated this result tra nsmitted reference range : <=4.0. The reference r lily was not used to int erpret this result as normal/abnormal . [facility] PasoItubybuDXZWKBZLEG9049-93-55 10:37:00 Test Item Value Reference Range Interpretation Comments RBC (test code = RBC) 3.98 4.20-5.40 [facility] PasoQmfnsitBRYQHYASQB2324-57-52 10:37:00 Test Item Value Reference Range Interpretation Comments Hct (test code = Hct) 35.5 36.0-48.0 [facility] PasoBichxapMJDKSVJLUG8874-79-50 10:37:00 Test Item Value Reference Range Interpretation Comments Hgb (test code = Hgb) 11.9 12.0-16.0 [facility] PasoElrrlkoQIBVFGJMVB9318-72-91 10:37:00 Test Item Value Reference Range Interpretation Comments RDW (test code = RDW) 13.4 11.5-14.5 [facility] PasoWcurqnkCPZZVXBZVW8683-79-98 10:37:00 Test Item Value Reference Range Interpretation Comments WBC (test code = WBC) 10.8 3.7-10.4 [facility] PasoTbsoigbBHWKBWOVEO2967-87-15 10:37:00 Test Item Value Reference Range Interpretation Comments Platelet (test code = Platelet) 166 133-450 [facility] PasoBtqpwsaOHMPNWBYDA5690-16-00 10:37:00 Test Item Value Reference Range Interpretation Comments MCHC (test code = MCHC) 33.6 32.0-36.0 [facility] PasoFrnrupsZVMDOLYOCM4380-59-28 10:37:00 Test Item Value Reference Range Interpretation Comments MCH (test code = MCH) 30.0 pg 27.0-31.0 [facility] PasoFeqqqhbAWENQUBWOR2731-48-89 10:37:00 Test Item Value Reference Range Interpretation Comments MCV (test code = MCV) 89.3 80.0-98.0 [facility] PasoIugjhwcVMANTKJKGL1278-12-77 10:37:00 Test Item Value Reference Range Interpretation Comments MPV (test code = MPV) 11.3 7.4-10.4 [facility] PasoJslidmrJCFNELZQAL7674-76-52 10:37:00 Test Item Value Reference Range Interpretation Comments Basophils (test code = 0.1 See_Comment [Aut omated message] The Basophils) system which ge nerated this result tra nsmitted reference range : <=1.0. The reference r lily was not used to int erpret this result as normal/abnormal . [facility] PasoUweatvsXQQXBYTSIO1398-35-68 10:37:00 Test Item Value Reference Range Interpretation Comments Lymphocytes (test code = Lymphocytes) 12.0 20.0-40.0 [facility] PasoRwbuwsvFPGTCNRUQU9185-65-28 10:37:00 Test Item Value Reference Range Interpretation Comments Lymphocytes # (test code = Lymphocytes 1.3 1.0-5.5 #) [facility] PasoIurprbaLKNLIWDVUK8665-16-51 10:37:00 Test Item Value Reference Range Interpretation Comments Segs-Bands # (test code = Segs-Bands #) 8.6 1.5-8.1 [facility] PasoCeaxmpgSAHXATZVPL1823-23-74 10:37:00 Test Item Value Reference Range Interpretation Comments Monocytes (test code = Monocytes) 8.3 2.0-12.0 [facility] PasoQeqfivxTZLUNWQNRV2382-74-13 10:37:00 Test Item Value Reference Range Interpretation Comments Monocytes # (test code 0.9 See_Comment [Aut omated message] The = Monocytes #) system which generated this result tra nsmitted reference range : <=0.8. The reference r lily was not used to int erpret this result as normal/abnormal . [facility] PasoHwsrkjwGJHCYJDPSS3480-18-77 10:37:00 Test Item Value Reference Range Interpretation Comments RBC (test code = RBC) 3.98 4.20-5.40 [facility] PasoVyknkctSKQQDXTHCK3451-80-68 10:37:00 Test Item Value Reference Range Interpretation Comments Hct (test code = Hct) 35.5 36.0-48.0 [facility] PasoLxdxxykNDOXXBCYHS2455-29-73 10:37:00 Test Item Value Reference Range Interpretation Comments Hgb (test code = Hgb) 11.9 12.0-16.0 [facility] PasoXzbjfivUXYBNXFRCL6337-74-85 10:37:00 Test Item Value Reference Range Interpretation Comments RDW (test code = RDW) 13.4 11.5-14.5 [facility] PasoOiqronrEIJGRMYFIU8239-63-40 10:37:00 Test Item Value Reference Range Interpretation Comments WBC (test code = WBC) 10.8 3.7-10.4 [facility] PasoTmsvkqwLINKYKZNCY5338-24-67 10:37:00 Test Item Value Reference Range Interpretation Comments Platelet (test code = Platelet) 166 133-450 [facility] PasoHyhdxxyOIKQCAQGKL0878-98-73 10:37:00 Test Item Value Reference Range Interpretation Comments MCHC (test code = MCHC) 33.6 32.0-36.0 [facility] PasoFknogdtHEICITUQKZ9511-23-31 10:37:00 Test Item Value Reference Range Interpretation Comments MCH (test code = MCH) 30.0 pg 27.0-31.0 [facility] PasoFrvfdhwMZDKWLXHIC5165-88-64 10:37:00 Test Item Value Reference Range Interpretation Comments MCV (test code = MCV) 89.3 80.0-98.0 [facility] PasoOrbmulhMIHJDXQJGJ2595-40-67 10:37:00 Test Item Value Reference Range Interpretation Comments MPV (test code = MPV) 11.3 7.4-10.4 [facility]2016-07-17 10:37:00 Test Item Value Reference Range Interpretation Comments Magnesium Lvl (test code = Magnesium 1.2 1.8-2.4 Lvl) [facility]2016-07-17 10:37:00 Test Item Value Reference Range Interpretation Comments eGFR (test code = eGFR) 107 [facility]2016-07-17 10:37:00 Test Item Value Reference Range Interpretation Comments Bili Total (test code = Bili Total) 0.6 0.2-1.3 [facility]2016-07-17 10:37:00 Test Item Value Reference Range Interpretation Comments Alk Phos (test code = Alk Phos) 49 39-136 [facility]2016-07-17 10:37:00 Test Item Value Reference Range Interpretation Comments ALANINE AMINOTRANSFERASE 18 See_Comment [A utomated message] (test code = ALANINE The sys tem which AMINOTRANSFERASE) generated this result transmitted ref erence range: <=65. Th e reference range was not used to int erpret this result as normal/abnormal . [place] 523386-07-17 10:37:00 Test Item Value Reference Range Interpretation Comments ASPARTATE TRANSAMINASE 15 See_Comment [Aut omated message] (test code = ASPARTATE The s ystem which TRANSAMINASE) generated this result transmitted ref erence range: <=37. Th e reference range was not used to interpr et this result as normal/abnormal . [facility]2016-07-17 10:37:00 Test Item Value Reference Range Interpretation Comments Total Protein (test code = Total 4.9 6.4-8.4 Protein) [facility]2016-07-17 10:37:00 Test Item Value Reference Range Interpretation Comments Albumin Lvl (test code = Albumin Lvl) 2.2 3.5-5.0 [facility]2016-07-17 10:37:00 Test Item Value Reference Range Interpretation Comments A/G Ratio (test code = A/G Ratio) 0.8 0.7-1.6 [facility]2016-07-17 10:37:00 Test Item Value Reference Range Interpretation Comments Globulin (test code = Globulin) 2.7 2.0-4.0 [facility]2016-07-17 10:37:00 Test Item Value Reference Range Interpretation Comments Calcium Lvl (test code = Calcium Lvl) 6.4 8.5-10.5 [facility]2016-07-17 10:37:00 Test Item Value Reference Range Interpretation Comments B/C Ratio (test code = B/C Ratio) 17 6-25 [facility]2016-07-17 10:37:00 Test Item Value Reference Range Interpretation Comments CO2 (test code = CO2) 22 24-32 [facility]2016-07-17 10:37:00 Test Item Value Reference Range Interpretation Comments AGAP (test code = AGAP) 13.7 10.0-20.0 [facility]2016-07-17 10:37:00 Test Item Value Reference Range Interpretation Comments Glucose Lvl (test code = Glucose Lvl) 98 70-99 [facility]2016-07-17 10:37:00 Test Item Value Reference Range Interpretation Comments Creatinine Lvl (test code = Creatinine 0.46 0.50-1.40 Lvl) [facility]2016-07-17 10:37:00 Test Item Value Reference Range Interpretation Comments Sodium Lvl (test code = Sodium Lvl) 148 135-145 [facility]2016-07-17 10:37:00 Test Item Value Reference Range Interpretation Comments Potassium Lvl (test code = Potassium 2.7 3.5-5.1 Lvl) [facility]2016-07-17 10:37:00 Test Item Value Reference Range Interpretation Comments Chloride Lvl (test code = Chloride Lvl) 115 95-109 [facility]2016-07-17 10:37:00 Test Item Value Reference Range Interpretation Comments BUN (test code = BUN) 8 7-22 [facility]2016-07-17 10:37:00 Test Item Value Reference Range Interpretation Comments Phosphorus (test code = Phosphorus) 2.4 2.5-4.5 [facility] PasoExfmispXREDAURTKW6367-67-54 10:37:00 Test Item Value Reference Range Interpretation Comments Segs (test code = Segs) 79.4 45.0-75.0 [facility] PasoAnhskhyKYHLQEPVDU6030-41-83 10:37:00 Test Item Value Reference Range Interpretation Comments Eosinophils (test code = 0.2 See_Comment [A utomated message] The Eosinophils) system which ge nerated this result tra nsmitted reference range : <=4.0. The reference r lily was not used to int erpret this result as normal/abnormal . [facility] PasoHyfaeqtVQEEWKCXIN5647-50-15 10:37:00 Test Item Value Reference Range Interpretation Comments Basophils (test code = 0.1 See_Comment [Aut omated message] The Basophils) system which ge nerated this result tra nsmitted reference range : <=1.0. The reference r lily was not used to int erpret this result as normal/abnormal . [facility] PasoHvipiogUTDDIRYDKB9115-66-01 10:37:00 Test Item Value Reference Range Interpretation Comments Lymphocytes (test code = Lymphocytes) 12.0 20.0-40.0 [facility] PasoGfnmsdmGQXYGDVBGK3305-88-23 10:37:00 Test Item Value Reference Range Interpretation Comments Lymphocytes # (test code = Lymphocytes 1.3 1.0-5.5 #) [facility] PasoXaarorfHBIWAJVJII5913-99-64 10:37:00 Test Item Value Reference Range Interpretation Comments Segs-Bands # (test code = Segs-Bands #) 8.6 1.5-8.1 [facility] PasoKojfczbKRIZTDTWHU1732-21-87 10:37:00 Test Item Value Reference Range Interpretation Comments Monocytes (test code = Monocytes) 8.3 2.0-12.0 [facility] PasoLljvyluVOGSGMJNIT5520-07-80 10:37:00 Test Item Value Reference Range Interpretation Comments Monocytes # (test code 0.9 See_Comment [Aut omated message] The = Monocytes #) system which generated this result tra nsmitted reference range : <=0.8. The reference r lily was not used to int erpret this result as normal/abnormal . [facility] PasoSdjcdozLUACDWAWYU2187-65-67 10:37:00 Test Item Value Reference Range Interpretation Comments RBC (test code = RBC) 3.98 4.20-5.40 [facility] PasoQdlymdjVIZRZZMFDQ6949-25-12 10:37:00 Test Item Value Reference Range Interpretation Comments Hct (test code = Hct) 35.5 36.0-48.0 [facility] PasoNbesdwzBKGYBOZBYX3896-00-83 10:37:00 Test Item Value Reference Range Interpretation Comments Hgb (test code = Hgb) 11.9 12.0-16.0 [facility] PasoEkyznweYVJCHGRNEX5396-01-78 10:37:00 Test Item Value Reference Range Interpretation Comments RDW (test code = RDW) 13.4 11.5-14.5 [facility] PasoGqszaufNSFBYHFETE9396-54-57 10:37:00 Test Item Value Reference Range Interpretation Comments WBC (test code = WBC) 10.8 3.7-10.4 [facility] PasoCgkadlsZQCKNODWYG0889-78-54 10:37:00 Test Item Value Reference Range Interpretation Comments Platelet (test code = Platelet) 166 133-450 [facility] PasoHavtgckLSIWWUKOAL7823-17-06 10:37:00 Test Item Value Reference Range Interpretation Comments MCHC (test code = MCHC) 33.6 32.0-36.0 [facility] PasoWjdfytaJAJVJGCKPO8966-49-82 10:37:00 Test Item Value Reference Range Interpretation Comments MCH (test code = MCH) 30.0 pg 27.0-31.0 [facility] PasoAlgxscsHRVLYFOTPZ6666-47-26 10:37:00 Test Item Value Reference Range Interpretation Comments MCV (test code = MCV) 89.3 80.0-98.0 [facility] PasoBapdzhlPNFOLTEOAH9043-39-06 10:37:00 Test Item Value Reference Range Interpretation Comments MPV (test code = MPV) 11.3 7.4-10.4 [facility]2016-07-17 10:37:00 Test Item Value Reference Range Interpretation Comments Magnesium Lvl (test code = Magnesium 1.2 1.8-2.4 Lvl) [facility]2016-07-17 10:37:00 Test Item Value Reference Range Interpretation Comments eGFR (test code = eGFR) 107 [facility]2016-07-17 10:37:00 Test Item Value Reference Range Interpretation Comments Bili Total (test code = Bili Total) 0.6 0.2-1.3 [facility]2016-07-17 10:37:00 Test Item Value Reference Range Interpretation Comments Alk Phos (test code = Alk Phos) 49 39-136 [facility]2016-07-17 10:37:00 Test Item Value Reference Range Interpretation Comments ALANINE AMINOTRANSFERASE 18 See_Comment [A utomated message] (test code = ALANINE The sys tem which AMINOTRANSFERASE) generated this result transmitted ref erence range: <=65. Th e reference range was not used to int erpret this result as normal/abnormal . [facility]2016-07-17 10:37:00 Test Item Value Reference Range Interpretation Comments ASPARTATE TRANSAMINASE 15 See_Comment [Aut omated message] (test code = ASPARTATE The s ystem which TRANSAMINASE) generated this result transmitted ref erence range: <=37. Th e reference range was not used to interpr et this result as normal/abnormal . [facility]2016-07-17 10:37:00 Test Item Value Reference Range Interpretation Comments Total Protein (test code = Total 4.9 6.4-8.4 Protein) [facility]2016-07-17 10:37:00 Test Item Value Reference Range Interpretation Comments Albumin Lvl (test code = Albumin Lvl) 2.2 3.5-5.0 [facility]2016-07-17 10:37:00 Test Item Value Reference Range Interpretation Comments A/G Ratio (test code = A/G Ratio) 0.8 0.7-1.6 [facility]2016-07-17 10:37:00 Test Item Value Reference Range Interpretation Comments Globulin (test code = Globulin) 2.7 2.0-4.0 [facility]2016-07-17 10:37:00 Test Item Value Reference Range Interpretation Comments Calcium Lvl (test code = Calcium Lvl) 6.4 8.5-10.5 [facility]2016-07-17 10:37:00 Test Item Value Reference Range Interpretation Comments B/C Ratio (test code = B/C Ratio) 17 - [facility]2016-07-17 10:37:00 Test Item Value Reference Range Interpretation Comments CO2 (test code = CO2) 22 24-32 [facility]2016-07-17 10:37:00 Test Item Value Reference Range Interpretation Comments AGAP (test code = AGAP) 13.7 10.0-20.0 [facility]2016-07-17 10:37:00 Test Item Value Reference Range Interpretation Comments Glucose Lvl (test code = Glucose Lvl) 98 70-99 [facility]2016-07-17 10:37:00 Test Item Value Reference Range Interpretation Comments Creatinine Lvl (test code = Creatinine 0.46 0.50-1.40 Lvl) [facility]2016-07-17 10:37:00 Test Item Value Reference Range Interpretation Comments Sodium Lvl (test code = Sodium Lvl) 148 135-145 [facility]2016-07-17 10:37:00 Test Item Value Reference Range Interpretation Comments Potassium Lvl (test code = Potassium 2.7 3.5-5.1 Lvl) [facility]2016-07-17 10:37:00 Test Item Value Reference Range Interpretation Comments Chloride Lvl (test code = Chloride Lvl) 115 95-109 [facility]2016-07-17 10:37:00 Test Item Value Reference Range Interpretation Comments BUN (test code = BUN) 8 - [facility]2016-07-17 10:37:00 Test Item Value Reference Range Interpretation Comments Phosphorus (test code = Phosphorus) 2.4 2.5-4.5 [facility]WhhwxsuOTEIIJWEJY7029-19-20 10:37:00 Test Item Value Reference Range Interpretation Comments Segs (test code = Segs) 79.4 45.0-75.0 [facility] PasoCypxghcWGMBWYZDSQ8910-89-55 10:37:00 Test Item Value Reference Range Interpretation Comments Eosinophils (test code = 0.2 See_Comment [A utomated message] The Eosinophils) system which ge nerated this result tra nsmitted reference range : <=4.0. The reference r lily was not used to int erpret this result as normal/abnormal . [facility] PasoClhwprgSFDJZXPPHU1728-97-91 10:37:00 Test Item Value Reference Range Interpretation Comments Basophils (test code = 0.1 See_Comment [Aut omated message] The Basophils) system which ge nerated this result tra nsmitted reference range : <=1.0. The reference r lily was not used to int erpret this result as normal/abnormal . [facility] PasoUqzlbqqJUZAUXWAVT9909-95-40 10:37:00 Test Item Value Reference Range Interpretation Comments Lymphocytes (test code = Lymphocytes) 12.0 20.0-40.0 [facility] PasoFwrnlnnRHTRXIEPRG7671-27-55 10:37:00 Test Item Value Reference Range Interpretation Comments Lymphocytes # (test code = Lymphocytes 1.3 1.0-5.5 #) [facility] PasoHcmkpmfQRDQFZXAGZ2048-69-72 10:37:00 Test Item Value Reference Range Interpretation Comments Segs-Bands # (test code = Segs-Bands #) 8.6 1.5-8.1 [facility] PasoOwdahafXMCYFGJYLN4431-31-89 10:37:00 Test Item Value Reference Range Interpretation Comments Monocytes (test code = Monocytes) 8.3 2.0-12.0 [facility] PasoUrfkjhpNTPVMLISCE5373-84-42 10:37:00 Test Item Value Reference Range Interpretation Comments Monocytes # (test code 0.9 See_Comment [Aut omated message] The = Monocytes #) system which generated this result tra nsmitted reference range : <=0.8. The reference r lily was not used to int erpret this result as normal/abnormal . [facility] PasoWuapfhnXPFBOACMFW5136-14-42 10:37:00 Test Item Value Reference Range Interpretation Comments RBC (test code = RBC) 3.98 4.20-5.40 [facility] PasoVivaaysVGNRCAHVUK8757-76-57 10:37:00 Test Item Value Reference Range Interpretation Comments Hct (test code = Hct) 35.5 36.0-48.0 [facility] PasoQimhhhoSDJBQZKMOU1551-94-36 10:37:00 Test Item Value Reference Range Interpretation Comments Hgb (test code = Hgb) 11.9 12.0-16.0 [facility] PasoPkqegmxJTMFSEQXXM3949-78-40 10:37:00 Test Item Value Reference Range Interpretation Comments RDW (test code = RDW) 13.4 11.5-14.5 [facility] PasoBwycvywDHXBKSUUJY3730-21-30 10:37:00 Test Item Value Reference Range Interpretation Comments WBC (test code = WBC) 10.8 3.7-10.4 [facility] PasoRjbocjyTBKUGRRFVX3342-46-85 10:37:00 Test Item Value Reference Range Interpretation Comments Platelet (test code = Platelet) 166 133-450 [facility] PasoJhjvwnxGLKGZQUSTC4275-46-62 10:37:00 Test Item Value Reference Range Interpretation Comments MCHC (test code = MCHC) 33.6 32.0-36.0 [facility] PasoShqpiuyOTMIJDBOMU3156-95-59 10:37:00 Test Item Value Reference Range Interpretation Comments MCH (test code = MCH) 30.0 pg 27.0-31.0 [facility] PasoHrwijwnAQPNUUZWYT6434-06-55 10:37:00 Test Item Value Reference Range Interpretation Comments MCV (test code = MCV) 89.3 80.0-98.0 [facility] PasoFnzjwbkVFQDYZIZQN3993-53-51 10:37:00 Test Item Value Reference Range Interpretation Comments MPV (test code = MPV) 11.3 7.4-10.4 [facility]2016-07-17 10:37:00 Test Item Value Reference Range Interpretation Comments Magnesium Lvl (test code = Magnesium 1.2 1.8-2.4 Lvl) [facility]2016-07-17 10:37:00 Test Item Value Reference Range Interpretation Comments eGFR (test code = eGFR) 107 [facility]2016-07-17 10:37:00 Test Item Value Reference Range Interpretation Comments Bili Total (test code = Bili Total) 0.6 0.2-1.3 [facility]2016-07-17 10:37:00 Test Item Value Reference Range Interpretation Comments Alk Phos (test code = Alk Phos) 49 39-136 [facility]2016-07-17 10:37:00 Test Item Value Reference Range Interpretation Comments ALANINE AMINOTRANSFERASE 18 See_Comment [A utomated message] (test code = ALANINE The sys tem which AMINOTRANSFERASE) generated this result transmitted ref erence range: <=65. Th e reference range was not used to int erpret this result as normal/abnormal . [facility]2016-07-17 10:37:00 Test Item Value Reference Range Interpretation Comments ASPARTATE TRANSAMINASE 15 See_Comment [Aut omated message] (test code = ASPARTATE The s ystem which TRANSAMINASE) generated this result transmitted ref erence range: <=37. Th e reference range was not used to interpr et this result as normal/abnormal . [facility]2016-07-17 10:37:00 Test Item Value Reference Range Interpretation Comments Total Protein (test code = Total 4.9 6.4-8.4 Protein) [facility]2016-07-17 10:37:00 Test Item Value Reference Range Interpretation Comments Albumin Lvl (test code = Albumin Lvl) 2.2 3.5-5.0 [facility]2016-07-17 10:37:00 Test Item Value Reference Range Interpretation Comments A/G Ratio (test code = A/G Ratio) 0.8 0.7-1.6 [facility]2016-07-17 10:37:00 Test Item Value Reference Range Interpretation Comments Globulin (test code = Globulin) 2.7 2.0-4.0 [facility]2016-07-17 10:37:00 Test Item Value Reference Range Interpretation Comments Calcium Lvl (test code = Calcium Lvl) 6.4 8.5-10.5 [facility]2016-07-17 10:37:00 Test Item Value Reference Range Interpretation Comments B/C Ratio (test code = B/C Ratio) 17 6-25 [facility]2016-07-17 10:37:00 Test Item Value Reference Range Interpretation Comments CO2 (test code = CO2) -32 [facility]2016-07-17 10:37:00 Test Item Value Reference Range Interpretation Comments AGAP (test code = AGAP) 13.7 10.0-20.0 [facility]2016-07-17 10:37:00 Test Item Value Reference Range Interpretation Comments Glucose Lvl (test code = Glucose Lvl) 98 70-99 [facility]2016-07-17 10:37:00 Test Item Value Reference Range Interpretation Comments Creatinine Lvl (test code = Creatinine 0.46 0.50-1.40 Lvl) [facility]2016-07-17 10:37:00 Test Item Value Reference Range Interpretation Comments Sodium Lvl (test code = Sodium Lvl) 148 135-145 [facility]2016-07-17 10:37:00 Test Item Value Reference Range Interpretation Comments Potassium Lvl (test code = Potassium 2.7 3.5-5.1 Lvl) [facility]2016-07-17 10:37:00 Test Item Value Reference Range Interpretation Comments Chloride Lvl (test code = Chloride Lvl) 115 95-109 [facility]2016-07-17 10:37:00 Test Item Value Reference Range Interpretation Comments BUN (test code = BUN) 8 7-22 [facility]2016-07-17 10:37:00 Test Item Value Reference Range Interpretation Comments Phosphorus (test code = Phosphorus) 2.4 2.5-4.5 [facility] PasoOgtrmmxUUPDPQCJSM6746-10-34 10:37:00 Test Item Value Reference Range Interpretation Comments Segs (test code = Segs) 79.4 45.0-75.0 [facility] PasoCmrbcqzQUBYBTTRXD6666-59-33 10:37:00 Test Item Value Reference Range Interpretation Comments Eosinophils (test code = 0.2 See_Comment [A utomated message] The Eosinophils) system which nerated this result tra nsmitted reference range : <=4.0. The reference r lily was not used to int erpret this result as normal/abnormal . [facility] PasoVxqagznCIFYZCUEHX6421-93-98 10:37:00 Test Item Value Reference Range Interpretation Comments Basophils (test code = 0.1 See_Comment [Aut omated message] The Basophils) system which ge nerated this result tra nsmitted reference range : <=1.0. The reference r lily was not used to int erpret this result as normal/abnormal . [facility] PasoZqtrbktGITIZDUHRW1213-32-47 10:37:00 Test Item Value Reference Range Interpretation Comments Lymphocytes (test code = Lymphocytes) 12.0 20.0-40.0 [place] 101186-07-17 10:37:00 Test Item Value Reference Range Interpretation Comments Lymphocytes # (test code = Lymphocytes 1.3 1.0-5.5 #) [facility] PasoPfucsqzOAZIMZNATV5083-94-88 10:37:00 Test Item Value Reference Range Interpretation Comments Segs-Bands # (test code = Segs-Bands #) 8.6 1.5-8.1 [facility] PasoVkegkymCVZGIAXLMK5843-88-22 10:37:00 Test Item Value Reference Range Interpretation Comments Monocytes (test code = Monocytes) 8.3 2.0-12.0 [facility] PasoOcdfryqVPEASVMQUZ9610-71-44 10:37:00 Test Item Value Reference Range Interpretation Comments Monocytes # (test code 0.9 See_Comment [Aut omated message] The = Monocytes #) system which generated this result tra nsmitted reference range : <=0.8. The reference r lily was not used to int erpret this result as normal/abnormal . [facility] PasoHehrifeJDQMGYQJCW6175-71-87 10:37:00 Test Item Value Reference Range Interpretation Comments RBC (test code = RBC) 3.98 4.20-5.40 [facility] PasoPcjijubUUQLDSPITN5464-74-97 10:37:00 Test Item Value Reference Range Interpretation Comments Hct (test code = Hct) 35.5 36.0-48.0 [facility] PasoUrukskpDNMHTVDRKD9121-82-76 10:37:00 Test Item Value Reference Range Interpretation Comments Hgb (test code = Hgb) 11.9 12.0-16.0 [facility] PasoEkqihtsTGATVTRDEX8235-35-04 10:37:00 Test Item Value Reference Range Interpretation Comments RDW (test code = RDW) 13.4 11.5-14.5 [facility] PasoDmlfvwzSIEYUPQQWI5784-47-97 10:37:00 Test Item Value Reference Range Interpretation Comments WBC (test code = WBC) 10.8 3.7-10.4 [facility] PasoWrnihluGHQZEYVSCR0778-71-38 10:37:00 Test Item Value Reference Range Interpretation Comments Platelet (test code = Platelet) 166 133-450 [facility] PasoEnrjhqfYPAFREGWBA6547-83-76 10:37:00 Test Item Value Reference Range Interpretation Comments MCHC (test code = MCHC) 33.6 32.0-36.0 [facility] PasoZqxekboDXFDJTOTZB9119-94-08 10:37:00 Test Item Value Reference Range Interpretation Comments MCH (test code = MCH) 30.0 pg 27.0-31.0 [facility] PasoFsuxndcMYJWLUIBPC0919-78-88 10:37:00 Test Item Value Reference Range Interpretation Comments MCV (test code = MCV) 89.3 80.0-98.0 [facility] PasoLewhjugSBRDTXNPJI4936-60-09 10:37:00 Test Item Value Reference Range Interpretation Comments MPV (test code = MPV) 11.3 7.4-10.4 [facility]2016-07-17 10:37:00 Test Item Value Reference Range Interpretation Comments Magnesium Lvl (test code = Magnesium 1.2 1.8-2.4 Lvl) [facility]2016-07-17 10:37:00 Test Item Value Reference Range Interpretation Comments eGFR (test code = eGFR) 107 [facility]2016-07-17 10:37:00 Test Item Value Reference Range Interpretation Comments Bili Total (test code = Bili Total) 0.6 0.2-1.3 [facility]2016-07-17 10:37:00 Test Item Value Reference Range Interpretation Comments Alk Phos (test code = Alk Phos) 49 39-136 [facility]2016-07-17 10:37:00 Test Item Value Reference Range Interpretation Comments ALANINE AMINOTRANSFERASE 18 See_Comment [A utomated message] (test code = ALANINE The sys tem which AMINOTRANSFERASE) generated this result transmitted ref erence range: <=65. Th e reference range was not used to int erpret this result as normal/abnormal . [facility]2016-07-17 10:37:00 Test Item Value Reference Range Interpretation Comments ASPARTATE TRANSAMINASE 15 See_Comment [Aut omated message] (test code = ASPARTATE The s ystem which TRANSAMINASE) generated this result transmitted ref erence range: <=37. Th e reference range was not used to interpr et this result as normal/abnormal . [facility]2016-07-17 10:37:00 Test Item Value Reference Range Interpretation Comments Total Protein (test code = Total 4.9 6.4-8.4 Protein) [facility]2016-07-17 10:37:00 Test Item Value Reference Range Interpretation Comments Albumin Lvl (test code = Albumin Lvl) 2.2 3.5-5.0 [facility]2016-07-17 10:37:00 Test Item Value Reference Range Interpretation Comments A/G Ratio (test code = A/G Ratio) 0.8 0.7-1.6 [facility]2016-07-17 10:37:00 Test Item Value Reference Range Interpretation Comments Globulin (test code = Globulin) 2.7 2.0-4.0 [facility]2016-07-17 10:37:00 Test Item Value Reference Range Interpretation Comments Calcium Lvl (test code = Calcium Lvl) 6.4 8.5-10.5 [facility]2016-07-17 10:37:00 Test Item Value Reference Range Interpretation Comments B/C Ratio (test code = B/C Ratio) 17 - [facility]2016-07-17 10:37:00 Test Item Value Reference Range Interpretation Comments CO2 (test code = CO2) -32 [facility]2016-07-17 10:37:00 Test Item Value Reference Range Interpretation Comments AGAP (test code = AGAP) 13.7 10.0-20.0 [facility]2016-07-17 10:37:00 Test Item Value Reference Range Interpretation Comments Glucose Lvl (test code = Glucose Lvl) 98 70-99 [facility]2016-07-17 10:37:00 Test Item Value Reference Range Interpretation Comments Creatinine Lvl (test code = Creatinine 0.46 0.50-1.40 Lvl) [facility]2016-07-17 10:37:00 Test Item Value Reference Range Interpretation Comments Sodium Lvl (test code = Sodium Lvl) 148 135-145 [facility]2016-07-17 10:37:00 Test Item Value Reference Range Interpretation Comments Potassium Lvl (test code = Potassium 2.7 3.5-5.1 Lvl) [facility]2016-07-17 10:37:00 Test Item Value Reference Range Interpretation Comments Chloride Lvl (test code = Chloride Lvl) 115 95-109 [facility]2016-07-17 10:37:00 Test Item Value Reference Range Interpretation Comments BUN (test code = BUN) 8 7-22 [place] 523386-07-17 10:37:00 Test Item Value Reference Range Interpretation Comments Phosphorus (test code = Phosphorus) 2.4 2.5-4.5 [facility] PasoYnemyssCDFKIMYNCF9611-02-91 10:37:00 Test Item Value Reference Range Interpretation Comments Segs (test code = Segs) 79.4 45.0-75.0 [facility] PasoEghtlwfPBQBKFJPFM9058-11-34 10:37:00 Test Item Value Reference Range Interpretation Comments Eosinophils (test code = 0.2 See_Comment [A utomated message] The Eosinophils) system which ge nerated this result tra nsmitted reference range : <=4.0. The reference r lily was not used to int erpret this result as normal/abnormal . [facility] PasoEgvujahZTNQMCMXXM9772-63-35 10:37:00 Test Item Value Reference Range Interpretation Comments Basophils (test code = 0.1 See_Comment [Aut omated message] The Basophils) system which ge nerated this result tra nsmitted reference range : <=1.0. The reference r lily was not used to int erpret this result as normal/abnormal . [facility] PasoMzjrfmhXYRIFICJLS1786-61-29 10:37:00 Test Item Value Reference Range Interpretation Comments Lymphocytes (test code = Lymphocytes) 12.0 20.0-40.0 [facility] PasoClwfwxbPWNDWNQVFY0192-40-86 10:37:00 Test Item Value Reference Range Interpretation Comments Lymphocytes # (test code = Lymphocytes 1.3 1.0-5.5 #) [facility] PasoVzcsbzvAESXXKBXHT2490-85-65 10:37:00 Test Item Value Reference Range Interpretation Comments Segs-Bands # (test code = Segs-Bands #) 8.6 1.5-8.1 [facility] PasoAsetlntWWOTOZMIFI6866-72-84 10:37:00 Test Item Value Reference Range Interpretation Comments Monocytes (test code = Monocytes) 8.3 2.0-12.0 [facility] PasoXunrvfiJTCULXZGBG1236-51-31 10:37:00 Test Item Value Reference Range Interpretation Comments Monocytes # (test code 0.9 See_Comment [Aut omated message] The = Monocytes #) system which generated this result tra nsmitted reference range : <=0.8. The reference r lily was not used to int erpret this result as normal/abnormal . [facility] PasoTssxsauYTBGLXDIAE2900-97-28 10:37:00 Test Item Value Reference Range Interpretation Comments RBC (test code = RBC) 3.98 4.20-5.40 [facility] PasoYclfclvEZVSTCZVCJ3177-22-80 10:37:00 Test Item Value Reference Range Interpretation Comments Hct (test code = Hct) 35.5 36.0-48.0 [facility] PasoEkuygcoVNZOAXOQAF3999-32-85 10:37:00 Test Item Value Reference Range Interpretation Comments Hgb (test code = Hgb) 11.9 12.0-16.0 [facility] PasoGyrjgdeOWMBAGFFCK7918-84-39 10:37:00 Test Item Value Reference Range Interpretation Comments RDW (test code = RDW) 13.4 11.5-14.5 [facility] PasoNnwoqmaHYIZCIKXYV8772-89-94 10:37:00 Test Item Value Reference Range Interpretation Comments WBC (test code = WBC) 10.8 3.7-10.4 [facility] PasoQxnwsurLCDPTDJLGE1529-23-67 10:37:00 Test Item Value Reference Range Interpretation Comments Platelet (test code = Platelet) 166 133-450 [facility] PasoSkrqcfpTDSMECACGF0248-17-27 10:37:00 Test Item Value Reference Range Interpretation Comments MCHC (test code = MCHC) 33.6 32.0-36.0 [facility] PasoHusgssvEYJQFJCQES7406-45-38 10:37:00 Test Item Value Reference Range Interpretation Comments MCH (test code = MCH) 30.0 pg 27.0-31.0 [facility] PasoWvezmmhLNBPYROHJZ9476-59-35 10:37:00 Test Item Value Reference Range Interpretation Comments MCV (test code = MCV) 89.3 80.0-98.0 [facility] PasoXguwbwxTVAKOIHKZW5249-80-68 10:37:00 Test Item Value Reference Range Interpretation Comments MPV (test code = MPV) 11.3 7.4-10.4 [facility]2016-07-17 10:37:00 Test Item Value Reference Range Interpretation Comments Magnesium Lvl (test code = Magnesium 1.2 1.8-2.4 Lvl) [facility]2016-07-17 10:37:00 Test Item Value Reference Range Interpretation Comments eGFR (test code = eGFR) 107 [facility]2016-07-17 10:37:00 Test Item Value Reference Range Interpretation Comments Bili Total (test code = Bili Total) 0.6 0.2-1.3 [facility]2016-07-17 10:37:00 Test Item Value Reference Range Interpretation Comments Alk Phos (test code = Alk Phos) 49 39-136 [facility]2016-07-17 10:37:00 Test Item Value Reference Range Interpretation Comments ALANINE AMINOTRANSFERASE 18 See_Comment [A utomated message] (test code = ALANINE The sys tem which AMINOTRANSFERASE) generated this result transmitted ref erence range: <=65. Th e reference range was not used to int erpret this result as normal/abnormal . [facility]2016-07-17 10:37:00 Test Item Value Reference Range Interpretation Comments ASPARTATE TRANSAMINASE 15 See_Comment [Aut omated message] (test code = ASPARTATE The s ystem which TRANSAMINASE) generated this result transmitted ref erence range: <=37. Th e reference range was not used to interpr et this result as normal/abnormal . [facility]2016-07-17 10:37:00 Test Item Value Reference Range Interpretation Comments Total Protein (test code = Total 4.9 6.4-8.4 Protein) [facility]2016-07-17 10:37:00 Test Item Value Reference Range Interpretation Comments Albumin Lvl (test code = Albumin Lvl) 2.2 3.5-5.0 [facility]2016-07-17 10:37:00 Test Item Value Reference Range Interpretation Comments A/G Ratio (test code = A/G Ratio) 0.8 0.7-1.6 [facility]2016-07-17 10:37:00 Test Item Value Reference Range Interpretation Comments Globulin (test code = Globulin) 2.7 2.0-4.0 [facility]2016-07-17 10:37:00 Test Item Value Reference Range Interpretation Comments Calcium Lvl (test code = Calcium Lvl) 6.4 8.5-10.5 [facility]2016-07-17 10:37:00 Test Item Value Reference Range Interpretation Comments B/C Ratio (test code = B/C Ratio) 17 6-25 [facility]2016-07-17 10:37:00 Test Item Value Reference Range Interpretation Comments CO2 (test code = CO2) 22 24-32 [facility]2016-07-17 10:37:00 Test Item Value Reference Range Interpretation Comments AGAP (test code = AGAP) 13.7 10.0-20.0 [facility]2016-07-17 10:37:00 Test Item Value Reference Range Interpretation Comments Glucose Lvl (test code = Glucose Lvl) 98 70-99 [facility]2016-07-17 10:37:00 Test Item Value Reference Range Interpretation Comments Creatinine Lvl (test code = Creatinine 0.46 0.50-1.40 Lvl) [facility]2016-07-17 10:37:00 Test Item Value Reference Range Interpretation Comments Sodium Lvl (test code = Sodium Lvl) 148 135-145 [facility]2016-07-17 10:37:00 Test Item Value Reference Range Interpretation Comments Potassium Lvl (test code = Potassium 2.7 3.5-5.1 Lvl) [facility]2016-07-17 10:37:00 Test Item Value Reference Range Interpretation Comments Chloride Lvl (test code = Chloride Lvl) 115 95-109 [facility]2016-07-17 10:37:00 Test Item Value Reference Range Interpretation Comments BUN (test code = BUN) 8 7-22 [facility]2016-07-17 10:37:00 Test Item Value Reference Range Interpretation Comments Phosphorus (test code = Phosphorus) 2.4 2.5-4.5 [facility] PasoAxcdhpqWLTOYVPSBL1788-09-82 10:37:00 Test Item Value Reference Range Interpretation Comments Segs (test code = Segs) 79.4 45.0-75.0 [facility] PasoHjohqljEUULGSMBOH8934-79-76 10:37:00 Test Item Value Reference Range Interpretation Comments Eosinophils (test code = 0.2 See_Comment [A utomated message] The Eosinophils) system which ge nerated this result tra nsmitted reference range : <=4.0. The reference r lily was not used to int erpret this result as normal/abnormal . [facility] PasoPypzzzuXJKTTBQCKZ8747-44-86 10:37:00 Test Item Value Reference Range Interpretation Comments Basophils (test code = 0.1 See_Comment [Aut omated message] The Basophils) system which ge nerated this result tra nsmitted reference range : <=1.0. The reference r lily was not used to int erpret this result as normal/abnormal . [facility] PasoJakxmzdBJYISEWUXL0594-18-33 10:37:00 Test Item Value Reference Range Interpretation Comments Lymphocytes (test code = Lymphocytes) 12.0 20.0-40.0 [facility] PasoLqeyznbBVODQIAFAQ7864-79-51 10:37:00 Test Item Value Reference Range Interpretation Comments Lymphocytes # (test code = Lymphocytes 1.3 1.0-5.5 #) [facility] PasoSpvhtarEDTZBBRHLA1991-16-53 10:37:00 Test Item Value Reference Range Interpretation Comments Segs-Bands # (test code = Segs-Bands #) 8.6 1.5-8.1 [facility] PasoPzqfnnjRKQTPQNONC1369-84-43 10:37:00 Test Item Value Reference Range Interpretation Comments Monocytes (test code = Monocytes) 8.3 2.0-12.0 [facility] PasoFmkljqqJIVBTEYDER5503-09-66 10:37:00 Test Item Value Reference Range Interpretation Comments Monocytes # (test code 0.9 See_Comment [Aut omated message] The = Monocytes #) system which generated this result tra nsmitted reference range : <=0.8. The reference r lily was not used to int erpret this result as normal/abnormal . [facility] PasoIrltimjZEZEQYILDV9798-78-91 10:37:00 Test Item Value Reference Range Interpretation Comments RBC (test code = RBC) 3.98 4.20-5.40 [facility] PasoFepqddpHIJZMUIKLC2755-75-67 10:37:00 Test Item Value Reference Range Interpretation Comments Hct (test code = Hct) 35.5 36.0-48.0 [facility] PasoWwcormsLXKDAMBWYS6581-85-86 10:37:00 Test Item Value Reference Range Interpretation Comments Hgb (test code = Hgb) 11.9 12.0-16.0 [facility] PasoCyelbziLOYPUZPIKW2218-77-98 10:37:00 Test Item Value Reference Range Interpretation Comments RDW (test code = RDW) 13.4 11.5-14.5 [facility] PasoXqgnafjRGFNHTZEQT3703-48-05 10:37:00 Test Item Value Reference Range Interpretation Comments WBC (test code = WBC) 10.8 3.7-10.4 [facility] [facility] [place]LinxdsgHBVBPHFEOT9736-22-71 10:37:00 Test Item Value Reference Range Interpretation Comments Platelet (test code = Platelet) 166 133-450 [facility] PasoTbpzilsLMTLDXEAAO0533-91-33 10:37:00 Test Item Value Reference Range Interpretation Comments MCHC (test code = MCHC) 33.6 32.0-36.0 [facility] PasoAcnudmdFHPRAAAUKF0596-02-50 10:37:00 Test Item Value Reference Range Interpretation Comments MCH (test code = MCH) 30.0 pg 27.0-31.0 [facility] PasoQzgdbmqFBSANIKMFK9512-08-85 10:37:00 Test Item Value Reference Range Interpretation Comments MCV (test code = MCV) 89.3 80.0-98.0 [facility] PasoPeohbcpUKABCNBWSS7086-67-22 10:37:00 Test Item Value Reference Range Interpretation Comments MPV (test code = MPV) 11.3 7.4-10.4 [facility]2016-07-17 10:37:00 Test Item Value Reference Range Interpretation Comments Magnesium Lvl (test code = Magnesium 1.2 1.8-2.4 Lvl) [facility]2016-07-17 10:37:00 Test Item Value Reference Range Interpretation Comments eGFR (test code = eGFR) 107 [facility]2016-07-17 10:37:00 Test Item Value Reference Range Interpretation Comments Bili Total (test code = Bili Total) 0.6 0.2-1.3 [facility]2016-07-17 10:37:00 Test Item Value Reference Range Interpretation Comments Alk Phos (test code = Alk Phos) 49 39-136 [facility]2016-07-17 10:37:00 Test Item Value Reference Range Interpretation Comments ALANINE AMINOTRANSFERASE 18 See_Comment [A utomated message] (test code = ALANINE The sys tem which AMINOTRANSFERASE) generated this result transmitted ref erence range: <=65. Th e reference range was not used to int erpret this result as normal/abnormal . [facility]2016-07-17 10:37:00 Test Item Value Reference Range Interpretation Comments ASPARTATE TRANSAMINASE 15 See_Comment [Aut omated message] (test code = ASPARTATE The s ystem which TRANSAMINASE) generated this result transmitted ref erence range: <=37. Th e reference range was not used to interpr et this result as normal/abnormal . [place] 523386-07-17 10:37:00 Test Item Value Reference Range Interpretation Comments Total Protein (test code = Total 4.9 6.4-8.4 Protein) [facility]2016-07-17 10:37:00 Test Item Value Reference Range Interpretation Comments Albumin Lvl (test code = Albumin Lvl) 2.2 3.5-5.0 [facility]2016-07-17 10:37:00 Test Item Value Reference Range Interpretation Comments A/G Ratio (test code = A/G Ratio) 0.8 0.7-1.6 [facility]2016-07-17 10:37:00 Test Item Value Reference Range Interpretation Comments Globulin (test code = Globulin) 2.7 2.0-4.0 [facility]2016-07-17 10:37:00 Test Item Value Reference Range Interpretation Comments Calcium Lvl (test code = Calcium Lvl) 6.4 8.5-10.5 [facility]2016-07-17 10:37:00 Test Item Value Reference Range Interpretation Comments B/C Ratio (test code = B/C Ratio) 17 6-25 [facility]2016-07-17 10:37:00 Test Item Value Reference Range Interpretation Comments CO2 (test code = CO2) 22 24-32 [facility]2016-07-17 10:37:00 Test Item Value Reference Range Interpretation Comments AGAP (test code = AGAP) 13.7 10.0-20.0 [facility]2016-07-17 10:37:00 Test Item Value Reference Range Interpretation Comments Glucose Lvl (test code = Glucose Lvl) 98 70-99 [facility]2016-07-17 10:37:00 Test Item Value Reference Range Interpretation Comments Creatinine Lvl (test code = Creatinine 0.46 0.50-1.40 Lvl) [facility]2016-07-17 10:37:00 Test Item Value Reference Range Interpretation Comments Sodium Lvl (test code = Sodium Lvl) 148 135-145 [facility]2016-07-17 10:37:00 Test Item Value Reference Range Interpretation Comments Potassium Lvl (test code = Potassium 2.7 3.5-5.1 Lvl) [facility]2016-07-17 10:37:00 Test Item Value Reference Range Interpretation Comments Chloride Lvl (test code = Chloride Lvl) 115 95-109 [facility]2016-07-17 10:37:00 Test Item Value Reference Range Interpretation Comments BUN (test code = BUN) 8 7-22 [facility]2016-07-17 10:37:00 Test Item Value Reference Range Interpretation Comments Phosphorus (test code = Phosphorus) 2.4 2.5-4.5 [facility] PasoKffpxbjEESQSLYEHK4567-83-89 10:37:00 Test Item Value Reference Range Interpretation Comments Segs (test code = Segs) 79.4 45.0-75.0 [facility] PasoQuguhmgTOMNZDTBRN3546-09-56 10:37:00 Test Item Value Reference Range Interpretation Comments Eosinophils (test code = 0.2 See_Comment [A utomated message] The Eosinophils) system which ge nerated this result tra nsmitted reference range : <=4.0. The reference r lily was not used to int erpret this result as normal/abnormal . [facility] PasoRjphvhgYKJKJNRVSK3131-68-37 10:37:00 Test Item Value Reference Range Interpretation Comments Basophils (test code = 0.1 See_Comment [Aut omated message] The Basophils) system which ge nerated this result tra nsmitted reference range : <=1.0. The reference r lily was not used to int erpret this result as normal/abnormal . [facility] PasoAyfcogdWLSUNVDLNJ0326-67-28 10:37:00 Test Item Value Reference Range Interpretation Comments Lymphocytes (test code = Lymphocytes) 12.0 20.0-40.0 [facility] PasoLnrkmlcEZUNDTDOPM1919-57-85 10:37:00 Test Item Value Reference Range Interpretation Comments Lymphocytes # (test code = Lymphocytes 1.3 1.0-5.5 #) [facility] PasoBmsxbvjJXRIXUZCMM3355-37-97 10:37:00 Test Item Value Reference Range Interpretation Comments Segs-Bands # (test code = Segs-Bands #) 8.6 1.5-8.1 [facility] PasoGcklwzgKYGQGQSSVL5371-62-55 10:37:00 Test Item Value Reference Range Interpretation Comments Monocytes (test code = Monocytes) 8.3 2.0-12.0 [facility] PasoMqusdvtLMDVPQEIAI1713-13-48 10:37:00 Test Item Value Reference Range Interpretation Comments Monocytes # (test code 0.9 See_Comment [Aut omated message] The = Monocytes #) system which generated this result tra nsmitted reference range : <=0.8. The reference r lily was not used to int erpret this result as normal/abnormal . [facility] PasoQnsuybyTEAGNFSKOE6671-70-01 10:37:00 Test Item Value Reference Range Interpretation Comments RBC (test code = RBC) 3.98 4.20-5.40 [facility] PasoUxyoutsRDRXKHOVMV8479-52-94 10:37:00 Test Item Value Reference Range Interpretation Comments Hct (test code = Hct) 35.5 36.0-48.0 [facility] PasoGzcrdqdGGVDUMOOTG6618-03-24 10:37:00 Test Item Value Reference Range Interpretation Comments Hgb (test code = Hgb) 11.9 12.0-16.0 [facility] PasoPxljcsqYWPQPVPVLJ4772-91-37 10:37:00 Test Item Value Reference Range Interpretation Comments RDW (test code = RDW) 13.4 11.5-14.5 [facility] PasoWattcryBDESCXOXDQ8818-06-22 10:37:00 Test Item Value Reference Range Interpretation Comments WBC (test code = WBC) 10.8 3.7-10.4 [facility] PasoCxgbnkeDSTSRSPDVE1958-69-25 10:37:00 Test Item Value Reference Range Interpretation Comments Platelet (test code = Platelet) 166 133-450 [facility] PasoQewlgbuAKKLSNDMSS0187-01-56 10:37:00 Test Item Value Reference Range Interpretation Comments MCHC (test code = MCHC) 33.6 32.0-36.0 [facility] PasoAnjjmakFFWDEYHDYS5664-75-36 10:37:00 Test Item Value Reference Range Interpretation Comments MCH (test code = MCH) 30.0 pg 27.0-31.0 [facility] PasoGkxfnuiRGQRVZJBLK1259-64-70 10:37:00 Test Item Value Reference Range Interpretation Comments MCV (test code = MCV) 89.3 80.0-98.0 [facility]Qw[facility]oylrIPIIBCACBC8474-01-66 10:37:00 Test Item Value Reference Range Interpretation Comments MPV (test code = MPV) 11.3 7.4-10.4 [facility]2016-07-17 10:37:00 Test Item Value Reference Range Interpretation Comments Magnesium Lvl (test code = Magnesium 1.2 1.8-2.4 Lvl) [facility]2016-07-17 10:37:00 Test Item Value Reference Range Interpretation Comments eGFR (test code = eGFR) 107 [facility]2016-07-17 10:37:00 Test Item Value Reference Range Interpretation Comments Bili Total (test code = Bili Total) 0.6 0.2-1.3 [facility]2016-07-17 10:37:00 Test Item Value Reference Range Interpretation Comments Alk Phos (test code = Alk Phos) 49 39-136 [facility]2016-07-17 10:37:00 Test Item Value Reference Range Interpretation Comments ALANINE AMINOTRANSFERASE 18 See_Comment [A utomated message] (test code = ALANINE The sys tem which AMINOTRANSFERASE) generated this result transmitted ref erence range: <=65. Th e reference range was not used to int erpret this result as normal/abnormal . [facility]2016-07-17 10:37:00 Test Item Value Reference Range Interpretation Comments ASPARTATE TRANSAMINASE 15 See_Comment [Aut omated message] (test code = ASPARTATE The s ystem which TRANSAMINASE) generated this result transmitted ref erence range: <=37. Th e reference range was not used to interpr et this result as normal/abnormal . [facility]2016-07-17 10:37:00 Test Item Value Reference Range Interpretation Comments Total Protein (test code = Total 4.9 6.4-8.4 Protein) [facility]2016-07-17 10:37:00 Test Item Value Reference Range Interpretation Comments Albumin Lvl (test code = Albumin Lvl) 2.2 3.5-5.0 [facility]2016-07-17 10:37:00 Test Item Value Reference Range Interpretation Comments A/G Ratio (test code = A/G Ratio) 0.8 0.7-1.6 [facility]2016-07-17 10:37:00 Test Item Value Reference Range Interpretation Comments Globulin (test code = Globulin) 2.7 2.0-4.0 [facility]2016-07-17 10:37:00 Test Item Value Reference Range Interpretation Comments Calcium Lvl (test code = Calcium Lvl) 6.4 8.5-10.5 [place] 523386-07-17 10:37:00 Test Item Value Reference Range Interpretation Comments B/C Ratio (test code = B/C Ratio) 17 6-25 [facility]2016-07-17 10:37:00 Test Item Value Reference Range Interpretation Comments CO2 (test code = CO2) 22 24-32 [facility]2016-07-17 10:37:00 Test Item Value Reference Range Interpretation Comments AGAP (test code = AGAP) 13.7 10.0-20.0 [facility]2016-07-17 10:37:00 Test Item Value Reference Range Interpretation Comments Glucose Lvl (test code = Glucose Lvl) 98 70-99 [facility]2016-07-17 10:37:00 Test Item Value Reference Range Interpretation Comments Creatinine Lvl (test code = Creatinine 0.46 0.50-1.40 Lvl) [facility]2016-07-17 10:37:00 Test Item Value Reference Range Interpretation Comments Sodium Lvl (test code = Sodium Lvl) 148 135-145 [facility]2016-07-17 10:37:00 Test Item Value Reference Range Interpretation Comments Potassium Lvl (test code = Potassium 2.7 3.5-5.1 Lvl) [facility]2016-07-17 10:37:00 Test Item Value Reference Range Interpretation Comments Chloride Lvl (test code = Chloride Lvl) 115 95-109 [facility]2016-07-17 10:37:00 Test Item Value Reference Range Interpretation Comments BUN (test code = BUN) 8 7-22 [facility]2016-07-17 10:37:00 Test Item Value Reference Range Interpretation Comments Phosphorus (test code = Phosphorus) 2.4 2.5-4.5 [facility] PasoQrvfbhoVTKUUNTYQJ7851-39-40 10:37:00 Test Item Value Reference Range Interpretation Comments Segs (test code = Segs) 79.4 45.0-75.0 [facility] PasoQaeknykSIMBOKFKKM4235-90-00 10:37:00 Test Item Value Reference Range Interpretation Comments Eosinophils (test code = 0.2 See_Comment [A utomated message] The Eosinophils) system which ge nerated this result tra nsmitted reference range : <=4.0. The reference r lily was not used to int erpret this result as normal/abnormal . [facility] PasoUffuijjVRTRBYBBZH7034-23-43 10:37:00 Test Item Value Reference Range Interpretation Comments Basophils (test code = 0.1 See_Comment [Aut omated message] The Basophils) system which ge nerated this result tra nsmitted reference range : <=1.0. The reference r lily was not used to int erpret this result as normal/abnormal . [facility] PasoRuiyjwzINPWPAAROD0592-82-24 10:37:00 Test Item Value Reference Range Interpretation Comments Lymphocytes (test code = Lymphocytes) 12.0 20.0-40.0 [facility] PasoJsygqxnPVZFKBVJUK0059-29-18 10:37:00 Test Item Value Reference Range Interpretation Comments Lymphocytes # (test code = Lymphocytes 1.3 1.0-5.5 #) [facility] PasoWoehuhsMSDEZKZJOC5394-31-38 10:37:00 Test Item Value Reference Range Interpretation Comments Segs-Bands # (test code = Segs-Bands #) 8.6 1.5-8.1 [facility] PasoAwlsohkXNWGKAPTZA6455-63-08 10:37:00 Test Item Value Reference Range Interpretation Comments Monocytes (test code = Monocytes) 8.3 2.0-12.0 [facility] PasoChxrysfZMYIMRUQKS0667-31-95 10:37:00 Test Item Value Reference Range Interpretation Comments Monocytes # (test code 0.9 See_Comment [Aut omated message] The = Monocytes #) system which generated this result tra nsmitted reference range : <=0.8. The reference r lily was not used to int erpret this result as normal/abnormal . [facility] PasoUkbjxtpEUGGGIOTZX5859-28-56 10:37:00 Test Item Value Reference Range Interpretation Comments RBC (test code = RBC) 3.98 4.20-5.40 [facility] PasoYxmqspmNCMZSRRYYF3789-44-19 10:37:00 Test Item Value Reference Range Interpretation Comments Hct (test code = Hct) 35.5 36.0-48.0 [facility] PasoQqyadnrVPDAURXJRQ6337-99-78 10:37:00 Test Item Value Reference Range Interpretation Comments Hgb (test code = Hgb) 11.9 12.0-16.0 [facility] PasoCncjpfxLUVFYLILPX8463-12-09 10:37:00 Test Item Value Reference Range Interpretation Comments RDW (test code = RDW) 13.4 11.5-14.5 [facility] PasoCbujmjtKVAKGGTPWG5202-06-88 10:37:00 Test Item Value Reference Range Interpretation Comments WBC (test code = WBC) 10.8 3.7-10.4 [facility] PasoTzguluqZXZGJLZNTA4211-54-77 10:37:00 Test Item Value Reference Range Interpretation Comments Platelet (test code = Platelet) 166 133-450 [facility] PasoGkksabuQFAERLGMPF4687-26-46 10:37:00 Test Item Value Reference Range Interpretation Comments MCHC (test code = MCHC) 33.6 32.0-36.0 [facility] PasoOneronpMSBWVYCNHQ7837-77-76 10:37:00 Test Item Value Reference Range Interpretation Comments MCH (test code = MCH) 30.0 pg 27.0-31.0 [facility] PasoLphsdyqIFCSASHQGY1571-38-28 10:37:00 Test Item Value Reference Range Interpretation Comments MCV (test code = MCV) 89.3 80.0-98.0 [facility] PasoLcygmgsCFBPPUQXNT4379-86-85 10:37:00 Test Item Value Reference Range Interpretation Comments MPV (test code = MPV) 11.3 7.4-10.4 [facility]2016-07-17 10:37:00 Test Item Value Reference Range Interpretation Comments Magnesium Lvl (test code = Magnesium 1.2 1.8-2.4 Lvl) [facility]2016-07-17 10:37:00 Test Item Value Reference Range Interpretation Comments eGFR (test code = eGFR) 107 [facility]2016-07-17 10:37:00 Test Item Value Reference Range Interpretation Comments Bili Total (test code = Bili Total) 0.6 0.2-1.3 [facility]2016-07-17 10:37:00 Test Item Value Reference Range Interpretation Comments Alk Phos (test code = Alk Phos) 49 39-136 [facility]2016-07-17 10:37:00 Test Item Value Reference Range Interpretation Comments ALANINE AMINOTRANSFERASE 18 See_Comment [A utomated message] (test code = ALANINE The sys tem which AMINOTRANSFERASE) generated this result transmitted ref erence range: <=65. Th e reference range was not used to int erpret this result as normal/abnormal . [facility]2016-07-17 10:37:00 Test Item Value Reference Range Interpretation Comments ASPARTATE TRANSAMINASE 15 See_Comment [Aut omated message] (test code = ASPARTATE The s ystem which TRANSAMINASE) generated this result transmitted ref erence range: <=37. Th e reference range was not used to interpr et this result as normal/abnormal . [facility]2016-07-17 10:37:00 Test Item Value Reference Range Interpretation Comments Total Protein (test code = Total 4.9 6.4-8.4 Protein) [facility]2016-07-17 10:37:00 Test Item Value Reference Range Interpretation Comments Albumin Lvl (test code = Albumin Lvl) 2.2 3.5-5.0 [facility]2016-07-17 10:37:00 Test Item Value Reference Range Interpretation Comments A/G Ratio (test code = A/G Ratio) 0.8 0.7-1.6 [facility]2016-07-17 10:37:00 Test Item Value Reference Range Interpretation Comments Globulin (test code = Globulin) 2.7 2.0-4.0 [facility]2016-07-17 10:37:00 Test Item Value Reference Range Interpretation Comments Calcium Lvl (test code = Calcium Lvl) 6.4 8.5-10.5 [facility]2016-07-17 10:37:00 Test Item Value Reference Range Interpretation Comments B/C Ratio (test code = B/C Ratio) 17 6-25 [facility]2016-07-17 10:37:00 Test Item Value Reference Range Interpretation Comments CO2 (test code = CO2) 22 24-32 [facility]2016-07-17 10:37:00 Test Item Value Reference Range Interpretation Comments AGAP (test code = AGAP) 13.7 10.0-20.0 [facility]2016-07-17 10:37:00 Test Item Value Reference Range Interpretation Comments Glucose Lvl (test code = Glucose Lvl) 98 70-99 [facility]2016-07-17 10:37:00 Test Item Value Reference Range Interpretation Comments Creatinine Lvl (test code = Creatinine 0.46 0.50-1.40 Lvl) [facility]2016-07-17 10:37:00 Test Item Value Reference Range Interpretation Comments Sodium Lvl (test code = Sodium Lvl) 148 135-145 [facility]2016-07-17 10:37:00 Test Item Value Reference Range Interpretation Comments Potassium Lvl (test code = Potassium 2.7 3.5-5.1 Lvl) [facility]2016-07-17 10:37:00 Test Item Value Reference Range Interpretation Comments Chloride Lvl (test code = Chloride Lvl) 115 95-109 [facility]2016-07-17 10:37:00 Test Item Value Reference Range Interpretation Comments BUN (test code = BUN) 8 7-22 [facility]2016-07-17 10:37:00 Test Item Value Reference Range Interpretation Comments Phosphorus (test code = Phosphorus) 2.4 2.5-4.5 [facility] PasoZhvnojaMNVILEHGIB0238-12-76 10:37:00 Test Item Value Reference Range Interpretation Comments Segs (test code = Segs) 79.4 45.0-75.0 [facility] PasoLpdygrcVSYCJPLEBN6056-62-67 10:37:00 Test Item Value Reference Range Interpretation Comments Eosinophils (test code = 0.2 See_Comment [A utomated message] The Eosinophils) system which ge nerated this result tra nsmitted reference range : <=4.0. The reference r lily was not used to int erpret this result as normal/abnormal . [facility] PasoScjkvnvFJMJBOELON4101-91-57 10:37:00 Test Item Value Reference Range Interpretation Comments Basophils (test code = 0.1 See_Comment [Aut omated message] The Basophils) system which ge nerated this result tra nsmitted reference range : <=1.0. The reference r lily was not used to int erpret this result as normal/abnormal . [facility] PasoFqocymyUSJJNGVCWM9988-36-45 10:37:00 Test Item Value Reference Range Interpretation Comments Lymphocytes (test code = Lymphocytes) 12.0 20.0-40.0 [facility] PasoZkybvfyFIAXHUGFJN6144-49-57 10:37:00 Test Item Value Reference Range Interpretation Comments Lymphocytes # (test code = Lymphocytes 1.3 1.0-5.5 #) [facility] PasoTopkyqgWEGULVVAGL2799-14-74 10:37:00 Test Item Value Reference Range Interpretation Comments Segs-Bands # (test code = Segs-Bands #) 8.6 1.5-8.1 [facility] PasoJstuwnbDVHSVMHGVL3036-24-53 10:37:00 Test Item Value Reference Range Interpretation Comments Monocytes (test code = Monocytes) 8.3 2.0-12.0 [facility] PasoXuvdtmfYNBRTRGMFN7111-84-34 10:37:00 Test Item Value Reference Range Interpretation Comments Monocytes # (test code 0.9 See_Comment [Aut omated message] The = Monocytes #) system which generated this result tra nsmitted reference range : <=0.8. The reference r lily was not used to int erpret this result as normal/abnormal . [facility] PasoTakobgaAJFUTPDLXR8067-84-39 10:37:00 Test Item Value Reference Range Interpretation Comments RBC (test code = RBC) 3.98 4.20-5.40 [facility] PasoZhtmjlnQRIBMCYTXT5911-80-13 10:37:00 Test Item Value Reference Range Interpretation Comments Hct (test code = Hct) 35.5 36.0-48.0 [facility] PasoZzgaqqtYBJVHROAHR9513-86-44 10:37:00 Test Item Value Reference Range Interpretation Comments Hgb (test code = Hgb) 11.9 12.0-16.0 [facility] PasoQowgnrdUIEPDVTPFA5295-17-23 10:37:00 Test Item Value Reference Range Interpretation Comments RDW (test code = RDW) 13.4 11.5-14.5 [facility] PasoThwdfqwLOHUGCAFUP7312-62-91 10:37:00 Test Item Value Reference Range Interpretation Comments WBC (test code = WBC) 10.8 3.7-10.4 [facility] PasoTvanbckJTZLCQWSVP0105-66-72 10:37:00 Test Item Value Reference Range Interpretation Comments Platelet (test code = Platelet) 166 133-450 [facility] PasoXhrhxwlUVNSEFQVYQ0350-89-06 10:37:00 Test Item Value Reference Range Interpretation Comments MCHC (test code = MCHC) 33.6 32.0-36.0 [facility] PasoNnmgmmqTWMTMXEHSH7623-76-10 10:37:00 Test Item Value Reference Range Interpretation Comments MCH (test code = MCH) 30.0 pg 27.0-31.0 [facility] PasoZefpytwXGQYOCWITN4826-17-13 10:37:00 Test Item Value Reference Range Interpretation Comments MCV (test code = MCV) 89.3 80.0-98.0 [facility] PasoLegnukyBMYIXZVOKG0369-01-08 10:37:00 Test Item Value Reference Range Interpretation Comments MPV (test code = MPV) 11.3 7.4-10.4 [facility]2016-07-17 10:37:00 Test Item Value Reference Range Interpretation Comments Magnesium Lvl (test code = Magnesium 1.2 1.8-2.4 Lvl) [facility]2016-07-17 10:37:00 Test Item Value Reference Range Interpretation Comments eGFR (test code = eGFR) 107 [facility]2016-07-17 10:37:00 Test Item Value Reference Range Interpretation Comments Bili Total (test code = Bili Total) 0.6 0.2-1.3 [facility]2016-07-17 10:37:00 Test Item Value Reference Range Interpretation Comments Alk Phos (test code = Alk Phos) 49 39-136 [facility]2016-07-17 10:37:00 Test Item Value Reference Range Interpretation Comments ALANINE AMINOTRANSFERASE 18 See_Comment [A utomated message] (test code = ALANINE The sys tem which AMINOTRANSFERASE) generated this result transmitted ref erence range: <=65. Th e reference range was not used to int erpret this result as normal/abnormal . [facility]2016-07-17 10:37:00 Test Item Value Reference Range Interpretation Comments ASPARTATE TRANSAMINASE 15 See_Comment [Aut omated message] (test code = ASPARTATE The s ystem which TRANSAMINASE) generated this result transmitted ref erence range: <=37. Th e reference range was not used to interpr et this result as normal/abnormal . [facility]2016-07-17 10:37:00 Test Item Value Reference Range Interpretation Comments Total Protein (test code = Total 4.9 6.4-8.4 Protein) [facility]2016-07-17 10:37:00 Test Item Value Reference Range Interpretation Comments Albumin Lvl (test code = Albumin Lvl) 2.2 3.5-5.0 [facility]2016-07-17 10:37:00 Test Item Value Reference Range Interpretation Comments A/G Ratio (test code = A/G Ratio) 0.8 0.7-1.6 [facility]2016-07-17 10:37:00 Test Item Value Reference Range Interpretation Comments Globulin (test code = Globulin) 2.7 2.0-4.0 [facility]2016-07-17 10:37:00 Test Item Value Reference Range Interpretation Comments Calcium Lvl (test code = Calcium Lvl) 6.4 8.5-10.5 [facility]2016-07-17 10:37:00 Test Item Value Reference Range Interpretation Comments B/C Ratio (test code = B/C Ratio) 17 6-25 [facility]2016-07-17 10:37:00 Test Item Value Reference Range Interpretation Comments CO2 (test code = CO2) 22 24-32 [facility]2016-07-17 10:37:00 Test Item Value Reference Range Interpretation Comments AGAP (test code = AGAP) 13.7 10.0-20.0 [facility]2016-07-17 10:37:00 Test Item Value Reference Range Interpretation Comments Glucose Lvl (test code = Glucose Lvl) 98 70-99 [facility]2016-07-17 10:37:00 Test Item Value Reference Range Interpretation Comments Creatinine Lvl (test code = Creatinine 0.46 0.50-1.40 Lvl) [facility]2016-07-17 10:37:00 Test Item Value Reference Range Interpretation Comments Sodium Lvl (test code = Sodium Lvl) 148 135-145 [facility]2016-07-17 10:37:00 Test Item Value Reference Range Interpretation Comments Potassium Lvl (test code = Potassium 2.7 3.5-5.1 Lvl) [facility]2016-07-17 10:37:00 Test Item Value Reference Range Interpretation Comments Chloride Lvl (test code = Chloride Lvl) 115 95-109 [facility]2016-07-17 10:37:00 Test Item Value Reference Range Interpretation Comments BUN (test code = BUN) 8 - [facility]2016-07-17 10:37:00 Test Item Value Reference Range Interpretation Comments Phosphorus (test code = Phosphorus) 2.4 2.5-4.5 [facility]XjsnviuDOJALHHVCO6651-03-47 10:37:00 Test Item Value Reference Range Interpretation Comments Segs (test code = Segs) 79.4 45.0-75.0 [facility] PasoDdtuuklCSVFBTVWEQ8150-51-97 10:37:00 Test Item Value Reference Range Interpretation Comments Eosinophils (test code = 0.2 See_Comment [A utomated message] The Eosinophils) system which ge nerated this result tra nsmitted reference range : <=4.0. The reference r lily was not used to int erpret this result as normal/abnormal . [facility] PasoAurgaktMKAZYECJHZ7475-65-39 10:37:00 Test Item Value Reference Range Interpretation Comments Basophils (test code = 0.1 See_Comment [Aut omated message] The Basophils) system which ge nerated this result tra nsmitted reference range : <=1.0. The reference r lily was not used to int erpret this result as normal/abnormal . [facility] PasoOmnrhrdKUNAVLOFHL7004-81-58 10:37:00 Test Item Value Reference Range Interpretation Comments Lymphocytes (test code = Lymphocytes) 12.0 20.0-40.0 [facility] PasoAfnjciyYMNKIEUKJD0059-94-90 10:37:00 Test Item Value Reference Range Interpretation Comments Lymphocytes # (test code = Lymphocytes 1.3 1.0-5.5 #) [facility] PasoGglzwogWTOGNSFNWP5025-11-39 10:37:00 Test Item Value Reference Range Interpretation Comments Segs-Bands # (test code = Segs-Bands #) 8.6 1.5-8.1 [facility] PasoForpspzQREIEMQDCD2800-31-59 10:37:00 Test Item Value Reference Range Interpretation Comments Monocytes (test code = Monocytes) 8.3 2.0-12.0 [facility] PasoAfdedfcHZEGKLXRGC7490-65-12 10:37:00 Test Item Value Reference Range Interpretation Comments Monocytes # (test code 0.9 See_Comment [Aut omated message] The = Monocytes #) system which generated this result tra nsmitted reference range : <=0.8. The reference r lily was not used to int erpret this result as normal/abnormal . [facility] PasoKeohvfwKNGEJMJXQM1692-63-55 10:37:00 Test Item Value Reference Range Interpretation Comments RBC (test code = RBC) 3.98 4.20-5.40 [facility] PasoXcwghstARVMPETFSZ6955-10-39 10:37:00 Test Item Value Reference Range Interpretation Comments Hct (test code = Hct) 35.5 36.0-48.0 [facility] PasoAjvtnjoVMZYFYHUZF8720-00-95 10:37:00 Test Item Value Reference Range Interpretation Comments Hgb (test code = Hgb) 11.9 12.0-16.0 [facility] PasoLubkhcgTBMJEMHQIV0972-19-36 10:37:00 Test Item Value Reference Range Interpretation Comments RDW (test code = RDW) 13.4 11.5-14.5 [facility] PasoQsypbvmVOBRCIYFCD7042-99-87 10:37:00 Test Item Value Reference Range Interpretation Comments WBC (test code = WBC) 10.8 3.7-10.4 [facility] PasoGpcooexUBRULICHZT4807-05-77 10:37:00 Test Item Value Reference Range Interpretation Comments Platelet (test code = Platelet) 166 133-450 [facility] PasoGnjubdgNYNMKSRQQA9817-28-45 10:37:00 Test Item Value Reference Range Interpretation Comments MCHC (test code = MCHC) 33.6 32.0-36.0 [facility] PasoUekouaeDJYFYERASX1025-66-69 10:37:00 Test Item Value Reference Range Interpretation Comments MCH (test code = MCH) 30.0 pg 27.0-31.0 [facility] PasoVbjfvjxDJGQFJPNML4757-45-86 10:37:00 Test Item Value Reference Range Interpretation Comments MCV (test code = MCV) 89.3 80.0-98.0 [facility] PasoAcvivxtRIAMDCMZEA0466-46-68 10:37:00 Test Item Value Reference Range Interpretation Comments MPV (test code = MPV) 11.3 7.4-10.4 [facility]2016-07-17 10:37:00 Test Item Value Reference Range Interpretation Comments Magnesium Lvl (test code = Magnesium 1.2 1.8-2.4 Lvl) [facility]2016-07-17 10:37:00 Test Item Value Reference Range Interpretation Comments eGFR (test code = eGFR) 107 [facility]2016-07-17 10:37:00 Test Item Value Reference Range Interpretation Comments Bili Total (test code = Bili Total) 0.6 0.2-1.3 [facility]2016-07-17 10:37:00 Test Item Value Reference Range Interpretation Comments Alk Phos (test code = Alk Phos) 49 39-136 [facility]2016-07-17 10:37:00 Test Item Value Reference Range Interpretation Comments ALANINE AMINOTRANSFERASE 18 See_Comment [A utomated message] (test code = ALANINE The sys tem which AMINOTRANSFERASE) generated this result transmitted ref erence range: <=65. Th e reference range was not used to int erpret this result as normal/abnormal . [facility]2016-07-17 10:37:00 Test Item Value Reference Range Interpretation Comments ASPARTATE TRANSAMINASE 15 See_Comment [Aut omated message] (test code = ASPARTATE The s ystem which TRANSAMINASE) generated this result transmitted ref erence range: <=37. Th e reference range was not used to interpr et this result as normal/abnormal . [facility]2016-07-17 10:37:00 Test Item Value Reference Range Interpretation Comments Total Protein (test code = Total 4.9 6.4-8.4 Protein) [facility]2016-07-17 10:37:00 Test Item Value Reference Range Interpretation Comments Albumin Lvl (test code = Albumin Lvl) 2.2 3.5-5.0 [facility]2016-07-17 10:37:00 Test Item Value Reference Range Interpretation Comments A/G Ratio (test code = A/G Ratio) 0.8 0.7-1.6 [facility]2016-07-17 10:37:00 Test Item Value Reference Range Interpretation Comments Magnesium Lvl (test code = Magnesium 1.2 1.8-2.4 Lvl) [facility]2016-07-17 10:37:00 Test Item Value Reference Range Interpretation Comments eGFR (test code = eGFR) 107 [facility]2016-07-17 10:37:00 Test Item Value Reference Range Interpretation Comments Bili Total (test code = Bili Total) 0.6 0.2-1.3 [facility]2016-07-17 10:37:00 Test Item Value Reference Range Interpretation Comments Globulin (test code = Globulin) 2.7 2.0-4.0 [facility]2016-07-17 10:37:00 Test Item Value Reference Range Interpretation Comments Alk Phos (test code = Alk Phos) 49 39-136 [facility]2016-07-17 10:37:00 Test Item Value Reference Range Interpretation Comments ALANINE AMINOTRANSFERASE 18 See_Comment [A utomated message] (test code = ALANINE The sys tem which AMINOTRANSFERASE) generated this result transmitted ref erence range: <=65. Th e reference range was not used to int erpret this result as normal/abnormal . [facility]2016-07-17 10:37:00 Test Item Value Reference Range Interpretation Comments ASPARTATE TRANSAMINASE 15 See_Comment [Aut omated message] (test code = ASPARTATE The s ystem which TRANSAMINASE) generated this result transmitted ref erence range: <=37. Th e reference range was not used to interpr et this result as normal/abnormal . [facility]2016-07-17 10:37:00 Test Item Value Reference Range Interpretation Comments Total Protein (test code = Total 4.9 6.4-8.4 Protein) [facility]2016-07-17 10:37:00 Test Item Value Reference Range Interpretation Comments Albumin Lvl (test code = Albumin Lvl) 2.2 3.5-5.0 [facility]2016-07-17 10:37:00 Test Item Value Reference Range Interpretation Comments A/G Ratio (test code = A/G Ratio) 0.8 0.7-1.6 [facility]2016-07-17 10:37:00 Test Item Value Reference Range Interpretation Comments Globulin (test code = Globulin) 2.7 2.0-4.0 [facility]2016-07-17 10:37:00 Test Item Value Reference Range Interpretation Comments Calcium Lvl (test code = Calcium Lvl) 6.4 8.5-10.5 [facility]2016-07-17 10:37:00 Test Item Value Reference Range Interpretation Comments B/C Ratio (test code = B/C Ratio) 17 6-25 [facility]2016-07-17 10:37:00 Test Item Value Reference Range Interpretation Comments CO2 (test code = CO2) 24-32 [facility]2016-07-17 10:37:00 Test Item Value Reference Range Interpretation Comments Calcium Lvl (test code = Calcium Lvl) 6.4 8.5-10.5 [facility]2016-07-17 10:37:00 Test Item Value Reference Range Interpretation Comments AGAP (test code = AGAP) 13.7 10.0-20.0 [facility]2016-07-17 10:37:00 Test Item Value Reference Range Interpretation Comments Glucose Lvl (test code = Glucose Lvl) 98 70-99 [facility]2016-07-17 10:37:00 Test Item Value Reference Range Interpretation Comments Creatinine Lvl (test code = Creatinine 0.46 0.50-1.40 Lvl) [facility]2016-07-17 10:37:00 Test Item Value Reference Range Interpretation Comments Sodium Lvl (test code = Sodium Lvl) 148 135-145 [facility]2016-07-17 10:37:00 Test Item Value Reference Range Interpretation Comments Potassium Lvl (test code = Potassium 2.7 3.5-5.1 Lvl) [facility]2016-07-17 10:37:00 Test Item Value Reference Range Interpretation Comments Chloride Lvl (test code = Chloride Lvl) 115 95-109 [facility]2016-07-17 10:37:00 Test Item Value Reference Range Interpretation Comments BUN (test code = BUN) 8 7- [facility]2016-07-17 10:37:00 Test Item Value Reference Range Interpretation Comments Phosphorus (test code = Phosphorus) 2.4 2.5-4.5 [facility] PasoOirioqoHIKPGSFSON7497-38-64 10:37:00 Test Item Value Reference Range Interpretation Comments Segs (test code = Segs) 79.4 45.0-75.0 [facility] PasoUrmlqifPEQWSJBPMC2203-58-54 10:37:00 Test Item Value Reference Range Interpretation Comments Eosinophils (test code = 0.2 See_Comment [A utomated message] The Eosinophils) system which ge nerated this result tra nsmitted reference range : <=4.0. The reference r lily was not used to int erpret this result as normal/abnormal . [facility]2016-07-17 10:37:00 Test Item Value Reference Range Interpretation Comments B/C Ratio (test code = B/C Ratio) 17 6- [facility] PasoYdqcmybRMERWXQVUL4206-76-38 10:37:00 Test Item Value Reference Range Interpretation Comments Basophils (test code = 0.1 See_Comment [Aut omated message] The Basophils) system which ge nerated this result tra nsmitted reference range : <=1.0. The reference r lily was not used to int erpret this result as normal/abnormal . [facility] PasoTnobdfyRFWLYQJRZQ5976-89-52 10:37:00 Test Item Value Reference Range Interpretation Comments Lymphocytes (test code = Lymphocytes) 12.0 20.0-40.0 [facility] PasoNtqqqwaUEMLXGNPTO9749-30-64 10:37:00 Test Item Value Reference Range Interpretation Comments Lymphocytes # (test code = Lymphocytes 1.3 1.0-5.5 #) [facility] PasoKojfqyqXOBPWCUDEX8967-20-73 10:37:00 Test Item Value Reference Range Interpretation Comments Segs-Bands # (test code = Segs-Bands #) 8.6 1.5-8.1 [facility] PasoUqpgbvsGXDCYNFJAT7982-07-08 10:37:00 Test Item Value Reference Range Interpretation Comments Monocytes (test code = Monocytes) 8.3 2.0-12.0 [facility] PasoPnjwywrVSYTRCFSOF6878-79-64 10:37:00 Test Item Value Reference Range Interpretation Comments Monocytes # (test code 0.9 See_Comment [Aut omated message] The = Monocytes #) system which generated this result tra nsmitted reference range : <=0.8. The reference r lily was not used to int erpret this result as normal/abnormal . [facility] PasoQiovacfIZYSRUWOJJ4066-93-92 10:37:00 Test Item Value Reference Range Interpretation Comments RBC (test code = RBC) 3.98 4.20-5.40 [facility] PasoGvceduiPQPSIAJEKZ2438-68-83 10:37:00 Test Item Value Reference Range Interpretation Comments Hct (test code = Hct) 35.5 36.0-48.0 [facility] PasoEssdirvSXDRGKOPKP0784-66-86 10:37:00 Test Item Value Reference Range Interpretation Comments Hgb (test code = Hgb) 11.9 12.0-16.0 [facility] PasoQjgbvlkIWPEZQYZIH0702-76-38 10:37:00 Test Item Value Reference Range Interpretation Comments RDW (test code = RDW) 13.4 11.5-14.5 [facility]2016-07-17 10:37:00 Test Item Value Reference Range Interpretation Comments CO2 (test code = CO2) 22 24-32 [facility] PasoImielxtXMYPEJJAZJ7659-92-42 10:37:00 Test Item Value Reference Range Interpretation Comments WBC (test code = WBC) 10.8 3.7-10.4 [facility] PasoBinakveXMSTXMNPQW7999-31-76 10:37:00 Test Item Value Reference Range Interpretation Comments Platelet (test code = Platelet) 166 133-450 [facility] PasoTeemrkiWGMPRGQNFG1615-02-67 10:37:00 Test Item Value Reference Range Interpretation Comments MCHC (test code = MCHC) 33.6 32.0-36.0 [facility] PasoWlwhlqlXIDCWXASWM8801-81-05 10:37:00 Test Item Value Reference Range Interpretation Comments MCH (test code = MCH) 30.0 pg 27.0-31.0 [facility] PasoDqhfhcmEVCNDXGZNQ2661-58-53 10:37:00 Test Item Value Reference Range Interpretation Comments MCV (test code = MCV) 89.3 80.0-98.0 [facility] PasoTlylbwwAAZJUYFNLX7977-75-15 10:37:00 Test Item Value Reference Range Interpretation Comments MPV (test code = MPV) 11.3 7.4-10.4 [facility]2016-07-17 10:37:00 Test Item Value Reference Range Interpretation Comments AGAP (test code = AGAP) 13.7 10.0-20.0 [facility]2016-07-17 10:37:00 Test Item Value Reference Range Interpretation Comments Glucose Lvl (test code = Glucose Lvl) 98 70-99 [facility]2016-07-17 10:37:00 Test Item Value Reference Range Interpretation Comments Creatinine Lvl (test code = Creatinine 0.46 0.50-1.40 Lvl) [facility]2016-07-17 10:37:00 Test Item Value Reference Range Interpretation Comments Sodium Lvl (test code = Sodium Lvl) 148 135-145 [facility]2016-07-17 10:37:00 Test Item Value Reference Range Interpretation Comments Potassium Lvl (test code = Potassium 2.7 3.5-5.1 Lvl) [facility]2016-07-17 10:37:00 Test Item Value Reference Range Interpretation Comments Chloride Lvl (test code = Chloride Lvl) 115 95-109 [facility]2016-07-17 10:37:00 Test Item Value Reference Range Interpretation Comments BUN (test code = BUN) 8 7-22 [facility]2016-07-17 10:37:00 Test Item Value Reference Range Interpretation Comments Phosphorus (test code = Phosphorus) 2.4 2.5-4.5 [facility] PasoXmzkifbHUYCBUIRYZ4624-40-87 10:37:00 Test Item Value Reference Range Interpretation Comments Segs (test code = Segs) 79.4 45.0-75.0 [facility] PasoPhikghrLIQWILKUAB8910-35-99 10:37:00 Test Item Value Reference Range Interpretation Comments Eosinophils (test code = 0.2 See_Comment [A utomated message] The Eosinophils) system which ge nerated this result tra nsmitted reference range : <=4.0. The reference r lily was not used to int erpret this result as normal/abnormal . [facility] PasoVvyciqjRDHHSPKPZN5226-47-67 10:37:00 Test Item Value Reference Range Interpretation Comments Basophils (test code = 0.1 See_Comment [Aut omated message] The Basophils) system which ge nerated this result tra nsmitted reference range : <=1.0. The reference r lily was not used to int erpret this result as normal/abnormal . [facility] PasoYulvfpxDLVVHAXGQQ0126-56-47 10:37:00 Test Item Value Reference Range Interpretation Comments Lymphocytes (test code = Lymphocytes) 12.0 20.0-40.0 [facility] PasoCgmohzpPBYEUQOFIH0450-52-40 10:37:00 Test Item Value Reference Range Interpretation Comments Lymphocytes # (test code = Lymphocytes 1.3 1.0-5.5 #) [facility] PasoDgypeqoRZYXOUSWJC3182-65-76 10:37:00 Test Item Value Reference Range Interpretation Comments Segs-Bands # (test code = Segs-Bands #) 8.6 1.5-8.1 [facility] PasoFnvelhlOOAMOXWENE5770-59-66 10:37:00 Test Item Value Reference Range Interpretation Comments Monocytes (test code = Monocytes) 8.3 2.0-12.0 [facility] PasoDamrfhsJBAQPYVIZC9916-18-65 10:37:00 Test Item Value Reference Range Interpretation Comments Monocytes # (test code 0.9 See_Comment [Aut omated message] The = Monocytes #) system which generated this result tra nsmitted reference range : <=0.8. The reference r lily was not used to int erpret this result as normal/abnormal . [facility] PasoQcjtcdsSHFEFRGUCV8359-97-77 10:37:00 Test Item Value Reference Range Interpretation Comments RBC (test code = RBC) 3.98 4.20-5.40 [facility] PasoRxhxitlZWQELNHJBE6248-61-22 10:37:00 Test Item Value Reference Range Interpretation Comments Hct (test code = Hct) 35.5 36.0-48.0 [facility] PasoLuvymikDIMPKSVYZN5105-09-44 10:37:00 Test Item Value Reference Range Interpretation Comments Hgb (test code = Hgb) 11.9 12.0-16.0 [facility] PasoKlnkoebCBVNYZVQEE6984-28-19 10:37:00 Test Item Value Reference Range Interpretation Comments RDW (test code = RDW) 13.4 11.5-14.5 [facility] PasoZgnatecNPQVPNDIZH0205-85-85 10:37:00 Test Item Value Reference Range Interpretation Comments WBC (test code = WBC) 10.8 3.7-10.4 [facility] PasoUayxcstIGNYUISAZO9951-75-17 10:37:00 Test Item Value Reference Range Interpretation Comments Platelet (test code = Platelet) 166 133-450 [facility] PasoIeobvrtTEFZTUHOCC7995-42-84 10:37:00 Test Item Value Reference Range Interpretation Comments MCHC (test code = MCHC) 33.6 32.0-36.0 [facility] PasoDfxjdmeGDDNIIFKQV4271-62-34 10:37:00 Test Item Value Reference Range Interpretation Comments MCH (test code = MCH) 30.0 pg 27.0-31.0 [facility] PasoTsrnlvuYVMWMXCRQT3800-97-12 10:37:00 Test Item Value Reference Range Interpretation Comments MCV (test code = MCV) 89.3 80.0-98.0 [facility] PasoFmceywaYKEZTGRPUE9385-09-55 10:37:00 Test Item Value Reference Range Interpretation Comments MPV (test code = MPV) 11.3 7.4-10.4 [facility]2016-07-17 10:37:00 Test Item Value Reference Range Interpretation Comments Magnesium Lvl (test code = Magnesium 1.2 1.8-2.4 Lvl) [facility]2016-07-17 10:37:00 Test Item Value Reference Range Interpretation Comments eGFR (test code = eGFR) 107 [facility]2016-07-17 10:37:00 Test Item Value Reference Range Interpretation Comments Bili Total (test code = Bili Total) 0.6 0.2-1.3 [facility]2016-07-17 10:37:00 Test Item Value Reference Range Interpretation Comments Alk Phos (test code = Alk Phos) 49 39-136 [facility]2016-07-17 10:37:00 Test Item Value Reference Range Interpretation Comments ALANINE AMINOTRANSFERASE 18 See_Comment [A utomated message] (test code = ALANINE The sys tem which AMINOTRANSFERASE) generated this result transmitted ref erence range: <=65. Th e reference range was not used to int erpret this result as normal/abnormal . [facility]2016-07-17 10:37:00 Test Item Value Reference Range Interpretation Comments ASPARTATE TRANSAMINASE 15 See_Comment [Aut omated message] (test code = ASPARTATE The s ystem which TRANSAMINASE) generated this result transmitted ref erence range: <=37. Th e reference range was not used to interpr et this result as normal/abnormal . [facility]2016-07-17 10:37:00 Test Item Value Reference Range Interpretation Comments Total Protein (test code = Total 4.9 6.4-8.4 Protein) [facility]2016-07-17 10:37:00 Test Item Value Reference Range Interpretation Comments Albumin Lvl (test code = Albumin Lvl) 2.2 3.5-5.0 [facility]2016-07-17 10:37:00 Test Item Value Reference Range Interpretation Comments A/G Ratio (test code = A/G Ratio) 0.8 0.7-1.6 [facility]2016-07-17 10:37:00 Test Item Value Reference Range Interpretation Comments Globulin (test code = Globulin) 2.7 2.0-4.0 [facility]2016-07-17 10:37:00 Test Item Value Reference Range Interpretation Comments Calcium Lvl (test code = Calcium Lvl) 6.4 8.5-10.5 [facility]2016-07-17 10:37:00 Test Item Value Reference Range Interpretation Comments B/C Ratio (test code = B/C Ratio) 17 6-25 [facility]2016-07-17 10:37:00 Test Item Value Reference Range Interpretation Comments CO2 (test code = CO2) 22 24-32 [facility]2016-07-17 10:37:00 Test Item Value Reference Range Interpretation Comments AGAP (test code = AGAP) 13.7 10.0-20.0 [facility]2016-07-17 10:37:00 Test Item Value Reference Range Interpretation Comments Glucose Lvl (test code = Glucose Lvl) 98 70-99 [facility]2016-07-17 10:37:00 Test Item Value Reference Range Interpretation Comments Creatinine Lvl (test code = Creatinine 0.46 0.50-1.40 Lvl) [facility]2016-07-17 10:37:00 Test Item Value Reference Range Interpretation Comments Sodium Lvl (test code = Sodium Lvl) 148 135-145 [facility]2016-07-17 10:37:00 Test Item Value Reference Range Interpretation Comments Potassium Lvl (test code = Potassium 2.7 3.5-5.1 Lvl) [facility]2016-07-17 10:37:00 Test Item Value Reference Range Interpretation Comments Chloride Lvl (test code = Chloride Lvl) 115 95-109 [facility]2016-07-17 10:37:00 Test Item Value Reference Range Interpretation Comments BUN (test code = BUN) 8 7-22 [facility]2016-07-17 10:37:00 Test Item Value Reference Range Interpretation Comments Phosphorus (test code = Phosphorus) 2.4 2.5-4.5 [facility]WqqungfEDJRNQSEGA3540-73-09 10:37:00 Test Item Value Reference Range Interpretation Comments Segs (test code = Segs) 79.4 45.0-75.0 [facility] PasoTocxxkhPVRIQKGDXI2881-07-46 10:37:00 Test Item Value Reference Range Interpretation Comments Eosinophils (test code = 0.2 See_Comment [A utomated message] The Eosinophils) system which ge nerated this result tra nsmitted reference range : <=4.0. The reference r lily was not used to int erpret this result as normal/abnormal . [facility] PasoJzppvoyRPNXCVSEVY7189-26-88 10:37:00 Test Item Value Reference Range Interpretation Comments Basophils (test code = 0.1 See_Comment [Aut omated message] The Basophils) system which ge nerated this result tra nsmitted reference range : <=1.0. The reference r lily was not used to int erpret this result as normal/abnormal . [facility] PasoNumrcxpEIOSTOIYGH6179-99-17 10:37:00 Test Item Value Reference Range Interpretation Comments Lymphocytes (test code = Lymphocytes) 12.0 20.0-40.0 [facility] PasoMrbticzWYASOGDFDG9300-24-60 10:37:00 Test Item Value Reference Range Interpretation Comments Lymphocytes # (test code = Lymphocytes 1.3 1.0-5.5 #) [facility] PasoKjsqkfyJLPSIZEWPG9737-58-00 10:37:00 Test Item Value Reference Range Interpretation Comments Segs-Bands # (test code = Segs-Bands #) 8.6 1.5-8.1 [facility] PasoTxchqcxQVJSUTXKMG1202-15-29 10:37:00 Test Item Value Reference Range Interpretation Comments Monocytes (test code = Monocytes) 8.3 2.0-12.0 [facility] PasoMciiytzYCDNRRKVPM2855-83-02 10:37:00 Test Item Value Reference Range Interpretation Comments Monocytes # (test code 0.9 See_Comment [Aut omated message] The = Monocytes #) system which generated this result tra nsmitted reference range : <=0.8. The reference r lily was not used to int erpret this result as normal/abnormal . [facility] PasoKauxpbwSFRAOTAXFI3170-10-90 10:37:00 Test Item Value Reference Range Interpretation Comments RBC (test code = RBC) 3.98 4.20-5.40 [facility] PasoXvxhknlHRPFFSKWOH5539-19-96 10:37:00 Test Item Value Reference Range Interpretation Comments Hct (test code = Hct) 35.5 36.0-48.0 [facility] PasoQiwowjgGVELZMXVYQ6724-94-17 10:37:00 Test Item Value Reference Range Interpretation Comments Hgb (test code = Hgb) 11.9 12.0-16.0 [facility] PasoLwbvmouJKEZBVVQKT1867-54-10 10:37:00 Test Item Value Reference Range Interpretation Comments RDW (test code = RDW) 13.4 11.5-14.5 [facility] PasoFomjuvvDNRXMGJQOW8641-59-77 10:37:00 Test Item Value Reference Range Interpretation Comments WBC (test code = WBC) 10.8 3.7-10.4 [facility] PasoVjtxctfGNBAEBJWBJ9337-28-36 10:37:00 Test Item Value Reference Range Interpretation Comments Platelet (test code = Platelet) 166 133-450 [facility] PasoYqvgoegQRGOOQZIVK4774-35-46 10:37:00 Test Item Value Reference Range Interpretation Comments MCHC (test code = MCHC) 33.6 32.0-36.0 [facility] PasoMoacbmkQUKWIJXWIM5980-21-03 10:37:00 Test Item Value Reference Range Interpretation Comments MCH (test code = MCH) 30.0 pg 27.0-31.0 [facility] PasoWgocmdmSDFYVPUWGX9349-02-37 10:37:00 Test Item Value Reference Range Interpretation Comments MCV (test code = MCV) 89.3 80.0-98.0 [facility] PasoIaqzoyaACJYZYSUMC7338-08-08 10:37:00 Test Item Value Reference Range Interpretation Comments MPV (test code = MPV) 11.3 7.4-10.4 [facility]2016-07-17 10:37:00 Test Item Value Reference Range Interpretation Comments Magnesium Lvl (test code = Magnesium 1.2 1.8-2.4 Lvl) [facility]2016-07-17 10:37:00 Test Item Value Reference Range Interpretation Comments eGFR (test code = eGFR) 107 [facility]2016-07-17 10:37:00 Test Item Value Reference Range Interpretation Comments Bili Total (test code = Bili Total) 0.6 0.2-1.3 [facility]2016-07-17 10:37:00 Test Item Value Reference Range Interpretation Comments Alk Phos (test code = Alk Phos) 49 39-136 [facility]2016-07-17 10:37:00 Test Item Value Reference Range Interpretation Comments ALANINE AMINOTRANSFERASE 18 See_Comment [A utomated message] (test code = ALANINE The sys tem which AMINOTRANSFERASE) generated this result transmitted ref erence range: <=65. Th e reference range was not used to int erpret this result as normal/abnormal . [facility]2016-07-17 10:37:00 Test Item Value Reference Range Interpretation Comments ASPARTATE TRANSAMINASE 15 See_Comment [Aut omated message] (test code = ASPARTATE The s ystem which TRANSAMINASE) generated this result transmitted ref erence range: <=37. Th e reference range was not used to interpr et this result as normal/abnormal . [facility]2016-07-17 10:37:00 Test Item Value Reference Range Interpretation Comments Total Protein (test code = Total 4.9 6.4-8.4 Protein) [facility]2016-07-17 10:37:00 Test Item Value Reference Range Interpretation Comments Albumin Lvl (test code = Albumin Lvl) 2.2 3.5-5.0 [facility]2016-07-17 10:37:00 Test Item Value Reference Range Interpretation Comments A/G Ratio (test code = A/G Ratio) 0.8 0.7-1.6 [facility]2016-07-17 10:37:00 Test Item Value Reference Range Interpretation Comments Globulin (test code = Globulin) 2.7 2.0-4.0 [facility]2016-07-17 10:37:00 Test Item Value Reference Range Interpretation Comments Calcium Lvl (test code = Calcium Lvl) 6.4 8.5-10.5 [facility]2016-07-17 10:37:00 Test Item Value Reference Range Interpretation Comments B/C Ratio (test code = B/C Ratio) 17 6-25 [facility]2016-07-17 10:37:00 Test Item Value Reference Range Interpretation Comments CO2 (test code = CO2) 22 24-32 [facility]2016-07-17 10:37:00 Test Item Value Reference Range Interpretation Comments AGAP (test code = AGAP) 13.7 10.0-20.0 [facility]2016-07-17 10:37:00 Test Item Value Reference Range Interpretation Comments Glucose Lvl (test code = Glucose Lvl) 98 70-99 [facility]2016-07-17 10:37:00 Test Item Value Reference Range Interpretation Comments Creatinine Lvl (test code = Creatinine 0.46 0.50-1.40 Lvl) [facility]2016-07-17 10:37:00 Test Item Value Reference Range Interpretation Comments Sodium Lvl (test code = Sodium Lvl) 148 135-145 [facility]2016-07-17 10:37:00 Test Item Value Reference Range Interpretation Comments Potassium Lvl (test code = Potassium 2.7 3.5-5.1 Lvl) [facility]2016-07-17 10:37:00 Test Item Value Reference Range Interpretation Comments Chloride Lvl (test code = Chloride Lvl) 115 95-109 [facility]2016-07-17 10:37:00 Test Item Value Reference Range Interpretation Comments BUN (test code = BUN) 8 7-22 [facility]2016-07-17 10:37:00 Test Item Value Reference Range Interpretation Comments Phosphorus (test code = Phosphorus) 2.4 2.5-4.5 [facility] PasoYwtklsvEAKHDABIZU0573-42-02 10:37:00 Test Item Value Reference Range Interpretation Comments Segs (test code = Segs) 79.4 45.0-75.0 [facility] PasoVtrspusZRKZXLVXCJ4152-51-25 10:37:00 Test Item Value Reference Range Interpretation Comments Eosinophils (test code = 0.2 See_Comment [A utomated message] The Eosinophils) system which ge nerated this result tra nsmitted reference range : <=4.0. The reference r lily was not used to int erpret this result as normal/abnormal . [facility] PasoExcjzkbMCZELIXTLY7255-53-96 10:37:00 Test Item Value Reference Range Interpretation Comments Basophils (test code = 0.1 See_Comment [Aut omated message] The Basophils) system which ge nerated this result tra nsmitted reference range : <=1.0. The reference r lily was not used to int erpret this result as normal/abnormal . [facility] PasoTgxpdepLUPYLTWGMJ0283-86-55 10:37:00 Test Item Value Reference Range Interpretation Comments Lymphocytes (test code = Lymphocytes) 12.0 20.0-40.0 [facility] PasoKrmppwdZWNUYHKHGB3664-52-81 10:37:00 Test Item Value Reference Range Interpretation Comments Lymphocytes # (test code = Lymphocytes 1.3 1.0-5.5 #) [facility] PasoNcpwixbKJFCLVZGED5011-70-14 10:37:00 Test Item Value Reference Range Interpretation Comments Segs-Bands # (test code = Segs-Bands #) 8.6 1.5-8.1 [facility] PasoZauktesWZMBHRLDBV3426-18-15 10:37:00 Test Item Value Reference Range Interpretation Comments Monocytes (test code = Monocytes) 8.3 2.0-12.0 [facility] PasoWqhyxxcXISOWEAMJS7344-30-55 10:37:00 Test Item Value Reference Range Interpretation Comments Monocytes # (test code 0.9 See_Comment [Aut omated message] The = Monocytes #) system which generated this result tra nsmitted reference range : <=0.8. The reference r lily was not used to int erpret this result as normal/abnormal . [facility] PasoHciwkclKGDNAKSFCN1010-27-03 10:37:00 Test Item Value Reference Range Interpretation Comments RBC (test code = RBC) 3.98 4.20-5.40 [facility] PasoGcnylxbSXFHTXHZNV2538-79-49 10:37:00 Test Item Value Reference Range Interpretation Comments Hct (test code = Hct) 35.5 36.0-48.0 [facility] PasoScopcqoUSNWCLNKLB8010-00-24 10:37:00 Test Item Value Reference Range Interpretation Comments Hgb (test code = Hgb) 11.9 12.0-16.0 [facility] PasoOjvrxtlXNVJXWAIYF7218-94-94 10:37:00 Test Item Value Reference Range Interpretation Comments RDW (test code = RDW) 13.4 11.5-14.5 [facility] PasoYpnbzyhZDOUPYDILT9139-57-65 10:37:00 Test Item Value Reference Range Interpretation Comments WBC (test code = WBC) 10.8 3.7-10.4 [facility] PasoFwccwvsTFXNJIVOJW4118-74-68 10:37:00 Test Item Value Reference Range Interpretation Comments Platelet (test code = Platelet) 166 133-450 [facility] PasoGexpszpBTBCOOGONE0418-96-09 10:37:00 Test Item Value Reference Range Interpretation Comments MCHC (test code = MCHC) 33.6 32.0-36.0 [facility] PasoJpyhwchWMJUKUCXQS9372-56-71 10:37:00 Test Item Value Reference Range Interpretation Comments MCH (test code = MCH) 30.0 pg 27.0-31.0 [facility] PasoBjagccxAUNDIFMMRX9110-46-12 10:37:00 Test Item Value Reference Range Interpretation Comments MCV (test code = MCV) 89.3 80.0-98.0 [facility] PasoVgnzxxqVEBKVURCQN6702-80-40 10:37:00 Test Item Value Reference Range Interpretation Comments MPV (test code = MPV) 11.3 7.4-10.4 [facility]2016-07-17 10:37:00 Test Item Value Reference Range Interpretation Comments Magnesium Lvl (test code = Magnesium 1.2 1.8-2.4 Lvl) [facility]2016-07-17 10:37:00 Test Item Value Reference Range Interpretation Comments eGFR (test code = eGFR) 107 [facility]2016-07-17 10:37:00 Test Item Value Reference Range Interpretation Comments Bili Total (test code = Bili Total) 0.6 0.2-1.3 [facility]2016-07-17 10:37:00 Test Item Value Reference Range Interpretation Comments Alk Phos (test code = Alk Phos) 49 39-136 [facility]2016-07-17 10:37:00 Test Item Value Reference Range Interpretation Comments ALANINE AMINOTRANSFERASE 18 See_Comment [A utomated message] (test code = ALANINE The sys tem which AMINOTRANSFERASE) generated this result transmitted ref erence range: <=65. Th e reference range was not used to int erpret this result as normal/abnormal . [facility]2016-07-17 10:37:00 Test Item Value Reference Range Interpretation Comments ASPARTATE TRANSAMINASE 15 See_Comment [Aut omated message] (test code = ASPARTATE The s ystem which TRANSAMINASE) generated this result transmitted ref erence range: <=37. Th e reference range was not used to interpr et this result as normal/abnormal . [facility]2016-07-17 10:37:00 Test Item Value Reference Range Interpretation Comments Total Protein (test code = Total 4.9 6.4-8.4 Protein) [facility]2016-07-17 10:37:00 Test Item Value Reference Range Interpretation Comments Albumin Lvl (test code = Albumin Lvl) 2.2 3.5-5.0 [facility]2016-07-17 10:37:00 Test Item Value Reference Range Interpretation Comments A/G Ratio (test code = A/G Ratio) 0.8 0.7-1.6 [facility]2016-07-17 10:37:00 Test Item Value Reference Range Interpretation Comments Globulin (test code = Globulin) 2.7 2.0-4.0 [facility]2016-07-17 10:37:00 Test Item Value Reference Range Interpretation Comments Calcium Lvl (test code = Calcium Lvl) 6.4 8.5-10.5 [facility]2016-07-17 10:37:00 Test Item Value Reference Range Interpretation Comments B/C Ratio (test code = B/C Ratio) 17 6-25 [facility]2016-07-17 10:37:00 Test Item Value Reference Range Interpretation Comments CO2 (test code = CO2) 22 24-32 [facility]2016-07-17 10:37:00 Test Item Value Reference Range Interpretation Comments AGAP (test code = AGAP) 13.7 10.0-20.0 [facility]2016-07-17 10:37:00 Test Item Value Reference Range Interpretation Comments Glucose Lvl (test code = Glucose Lvl) 98 70-99 [facility]2016-07-17 10:37:00 Test Item Value Reference Range Interpretation Comments Creatinine Lvl (test code = Creatinine 0.46 0.50-1.40 Lvl) [facility]2016-07-17 10:37:00 Test Item Value Reference Range Interpretation Comments Sodium Lvl (test code = Sodium Lvl) 148 135-145 [facility]2016-07-17 10:37:00 Test Item Value Reference Range Interpretation Comments Potassium Lvl (test code = Potassium 2.7 3.5-5.1 Lvl) [facility]2016-07-17 10:37:00 Test Item Value Reference Range Interpretation Comments Chloride Lvl (test code = Chloride Lvl) 115 95-109 [facility]2016-07-17 10:37:00 Test Item Value Reference Range Interpretation Comments BUN (test code = BUN) 8 7-22 [facility]2016-07-17 10:37:00 Test Item Value Reference Range Interpretation Comments Phosphorus (test code = Phosphorus) 2.4 2.5-4.5 [facility] PasoEgtjufwTSLGHUDNEX7518-94-85 10:37:00 Test Item Value Reference Range Interpretation Comments Segs (test code = Segs) 79.4 45.0-75.0 [facility] PasoHtjedufBTPTMADUDO5708-35-01 10:37:00 Test Item Value Reference Range Interpretation Comments Eosinophils (test code = 0.2 See_Comment [A utomated message] The Eosinophils) system which ge nerated this result tra nsmitted reference range : <=4.0. The reference r lily was not used to int erpret this result as normal/abnormal . [facility] PasoIhulgxvKRJMHJFACB7822-76-12 10:37:00 Test Item Value Reference Range Interpretation Comments Basophils (test code = 0.1 See_Comment [Aut omated message] The Basophils) system which ge nerated this result tra nsmitted reference range : <=1.0. The reference r lily was not used to int erpret this result as normal/abnormal . [facility] PasoJhdtyrjVWBHRDQWLE5101-75-55 10:37:00 Test Item Value Reference Range Interpretation Comments Lymphocytes (test code = Lymphocytes) 12.0 20.0-40.0 [facility] PasoVrsinqnJUIVUSHNLV5742-21-99 10:37:00 Test Item Value Reference Range Interpretation Comments Lymphocytes # (test code = Lymphocytes 1.3 1.0-5.5 #) [facility] PasoYvszuhnZXQSZFUNZH7399-19-18 10:37:00 Test Item Value Reference Range Interpretation Comments Segs-Bands # (test code = Segs-Bands #) 8.6 1.5-8.1 [facility] PasoNkutjqbMUGDUYRFCB1640-53-06 10:37:00 Test Item Value Reference Range Interpretation Comments Monocytes (test code = Monocytes) 8.3 2.0-12.0 [facility] PasoYpgupzrXAQQKQGAMD9416-05-05 10:37:00 Test Item Value Reference Range Interpretation Comments Monocytes # (test code 0.9 See_Comment [Aut omated message] The = Monocytes #) system which generated this result tra nsmitted reference range : <=0.8. The reference r lily was not used to int erpret this result as normal/abnormal . [facility] PasoUthydtvEEMLDPJXGW4581-11-63 10:37:00 Test Item Value Reference Range Interpretation Comments RBC (test code = RBC) 3.98 4.20-5.40 [facility] PasoDtnnuybYNOQCUAGWE9435-16-60 10:37:00 Test Item Value Reference Range Interpretation Comments Hct (test code = Hct) 35.5 36.0-48.0 [facility] PasoIvjwvrzVIAXQOOJCT6687-54-83 10:37:00 Test Item Value Reference Range Interpretation Comments Hgb (test code = Hgb) 11.9 12.0-16.0 [facility] PasoXztpebbOHYXPXFVQN6206-46-43 10:37:00 Test Item Value Reference Range Interpretation Comments RDW (test code = RDW) 13.4 11.5-14.5 [facility] PasoTapusqdZCPJDOKLJO5241-54-36 10:37:00 Test Item Value Reference Range Interpretation Comments WBC (test code = WBC) 10.8 3.7-10.4 [facility] PasoXvlylcmTTSWDHODOO9227-52-87 10:37:00 Test Item Value Reference Range Interpretation Comments Platelet (test code = Platelet) 166 133-450 [facility] PasoCunsyslDIZZZPIZYG9598-53-60 10:37:00 Test Item Value Reference Range Interpretation Comments MCHC (test code = MCHC) 33.6 32.0-36.0 [facility] PasoCyymtvuVGBUWHAXSH6435-21-09 10:37:00 Test Item Value Reference Range Interpretation Comments MCH (test code = MCH) 30.0 pg 27.0-31.0 [facility] PasoPqrecwwGTYSFVMYWT0127-41-91 10:37:00 Test Item Value Reference Range Interpretation Comments MCV (test code = MCV) 89.3 80.0-98.0 [facility] PasoGqwvwovUWLOKAUYJZ8868-61-70 10:37:00 Test Item Value Reference Range Interpretation Comments MPV (test code = MPV) 11.3 7.4-10.4 [facility]2016-07-17 10:37:00 Test Item Value Reference Range Interpretation Comments Magnesium Lvl (test code = Magnesium 1.2 1.8-2.4 Lvl) [facility]2016-07-17 10:37:00 Test Item Value Reference Range Interpretation Comments eGFR (test code = eGFR) 107 [facility]2016-07-17 10:37:00 Test Item Value Reference Range Interpretation Comments Bili Total (test code = Bili Total) 0.6 0.2-1.3 [facility]2016-07-17 10:37:00 Test Item Value Reference Range Interpretation Comments Alk Phos (test code = Alk Phos) 49 39-136 [facility]2016-07-17 10:37:00 Test Item Value Reference Range Interpretation Comments ALANINE AMINOTRANSFERASE 18 See_Comment [A utomated message] (test code = ALANINE The sys tem which AMINOTRANSFERASE) generated this result transmitted ref erence range: <=65. Th e reference range was not used to int erpret this result as normal/abnormal . [facility]2016-07-17 10:37:00 Test Item Value Reference Range Interpretation Comments ASPARTATE TRANSAMINASE 15 See_Comment [Aut omated message] (test code = ASPARTATE The s ystem which TRANSAMINASE) generated this result transmitted ref erence range: <=37. Th e reference range was not used to interpr et this result as normal/abnormal . [facility]2016-07-17 10:37:00 Test Item Value Reference Range Interpretation Comments Total Protein (test code = Total 4.9 6.4-8.4 Protein) [facility]2016-07-17 10:37:00 Test Item Value Reference Range Interpretation Comments Albumin Lvl (test code = Albumin Lvl) 2.2 3.5-5.0 [facility]2016-07-17 10:37:00 Test Item Value Reference Range Interpretation Comments A/G Ratio (test code = A/G Ratio) 0.8 0.7-1.6 [facility]2016-07-17 10:37:00 Test Item Value Reference Range Interpretation Comments Globulin (test code = Globulin) 2.7 2.0-4.0 [facility]2016-07-17 10:37:00 Test Item Value Reference Range Interpretation Comments Calcium Lvl (test code = Calcium Lvl) 6.4 8.5-10.5 [facility]2016-07-17 10:37:00 Test Item Value Reference Range Interpretation Comments B/C Ratio (test code = B/C Ratio) 17 6-25 [facility]2016-07-17 10:37:00 Test Item Value Reference Range Interpretation Comments CO2 (test code = CO2) 22 24-32 [facility]2016-07-17 10:37:00 Test Item Value Reference Range Interpretation Comments AGAP (test code = AGAP) 13.7 10.0-20.0 [facility]2016-07-17 10:37:00 Test Item Value Reference Range Interpretation Comments Glucose Lvl (test code = Glucose Lvl) 98 70-99 [facility]2016-07-17 10:37:00 Test Item Value Reference Range Interpretation Comments Creatinine Lvl (test code = Creatinine 0.46 0.50-1.40 Lvl) [facility]2016-07-17 10:37:00 Test Item Value Reference Range Interpretation Comments Sodium Lvl (test code = Sodium Lvl) 148 135-145 [facility]2016-07-17 10:37:00 Test Item Value Reference Range Interpretation Comments Potassium Lvl (test code = Potassium 2.7 3.5-5.1 Lvl) [facility]2016-07-17 10:37:00 Test Item Value Reference Range Interpretation Comments Chloride Lvl (test code = Chloride Lvl) 115 95-109 [facility]2016-07-17 10:37:00 Test Item Value Reference Range Interpretation Comments BUN (test code = BUN) 8 7-22 [facility]2016-07-17 10:37:00 Test Item Value Reference Range Interpretation Comments Phosphorus (test code = Phosphorus) 2.4 2.5-4.5 [facility] PasoVsnxhinCRAQSQUCAD0171-76-19 10:37:00 Test Item Value Reference Range Interpretation Comments Segs (test code = Segs) 79.4 45.0-75.0 [facility] PasoYvxasfqRMPZQPMENZ0070-28-27 10:37:00 Test Item Value Reference Range Interpretation Comments Eosinophils (test code = 0.2 See_Comment [A utomated message] The Eosinophils) system which ge nerated this result tra nsmitted reference range : <=4.0. The reference r lily was not used to int erpret this result as normal/abnormal . [facility] PasoMothfunLDYLKKBSYF3505-84-55 10:37:00 Test Item Value Reference Range Interpretation Comments Basophils (test code = 0.1 See_Comment [Aut omated message] The Basophils) system which ge nerated this result tra nsmitted reference range : <=1.0. The reference r lily was not used to int erpret this result as normal/abnormal . [facility] PasoCxuostaCUKVDEKMOF3955-17-44 10:37:00 Test Item Value Reference Range Interpretation Comments Lymphocytes (test code = Lymphocytes) 12.0 20.0-40.0 [facility] PasoByujzgyKAXFVKAKEO1969-12-07 10:37:00 Test Item Value Reference Range Interpretation Comments Lymphocytes # (test code = Lymphocytes 1.3 1.0-5.5 #) [facility] PasoUsqaswcUCLYFNGLFA8563-16-89 10:37:00 Test Item Value Reference Range Interpretation Comments Segs-Bands # (test code = Segs-Bands #) 8.6 1.5-8.1 [place] 101186-07-17 10:37:00 Test Item Value Reference Range Interpretation Comments Monocytes (test code = Monocytes) 8.3 2.0-12.0 [facility] PasoZptoegcZJZTIZDPEE3552-10-19 10:37:00 Test Item Value Reference Range Interpretation Comments Monocytes # (test code 0.9 See_Comment [Aut omated message] The = Monocytes #) system which generated this result tra nsmitted reference range : <=0.8. The reference r lily was not used to int erpret this result as normal/abnormal . [facility] PasoKbibvzbUOBAQBKYWL9312-57-10 10:37:00 Test Item Value Reference Range Interpretation Comments RBC (test code = RBC) 3.98 4.20-5.40 [facility] PasoVjjwnizGZZGDGEOGG2097-15-30 10:37:00 Test Item Value Reference Range Interpretation Comments Hct (test code = Hct) 35.5 36.0-48.0 [facility] PasoGfohaykGXVDUVPRWJ1709-40-14 10:37:00 Test Item Value Reference Range Interpretation Comments Hgb (test code = Hgb) 11.9 12.0-16.0 [facility] PasoMtlncnkJAPIFJODPY2838-53-40 10:37:00 Test Item Value Reference Range Interpretation Comments RDW (test code = RDW) 13.4 11.5-14.5 [facility] PasoFidmozzIBBDANKGPL8503-86-18 10:37:00 Test Item Value Reference Range Interpretation Comments WBC (test code = WBC) 10.8 3.7-10.4 [facility] PasoOfornayWFJWBQCFPO1701-88-28 10:37:00 Test Item Value Reference Range Interpretation Comments Platelet (test code = Platelet) 166 133-450 [facility] PasoUmnrckaDTKASCOBTG4034-37-55 10:37:00 Test Item Value Reference Range Interpretation Comments MCHC (test code = MCHC) 33.6 32.0-36.0 [facility] PasoZatphkrPOJXJBTDDA5424-77-38 10:37:00 Test Item Value Reference Range Interpretation Comments MCH (test code = MCH) 30.0 pg 27.0-31.0 [facility] PasoAorwnkeONEISIBEPR6157-21-05 10:37:00 Test Item Value Reference Range Interpretation Comments MCV (test code = MCV) 89.3 80.0-98.0 [facility] PasoCkoniovGORNLPAFGM5266-65-62 10:37:00 Test Item Value Reference Range Interpretation Comments MPV (test code = MPV) 11.3 7.4-10.4 [facility]2016-07-17 10:37:00 Test Item Value Reference Range Interpretation Comments Magnesium Lvl (test code = Magnesium 1.2 1.8-2.4 Lvl) [facility]2016-07-17 10:37:00 Test Item Value Reference Range Interpretation Comments eGFR (test code = eGFR) 107 [facility]2016-07-17 10:37:00 Test Item Value Reference Range Interpretation Comments Bili Total (test code = Bili Total) 0.6 0.2-1.3 [facility]2016-07-17 10:37:00 Test Item Value Reference Range Interpretation Comments Alk Phos (test code = Alk Phos) 49 39-136 [facility]2016-07-17 10:37:00 Test Item Value Reference Range Interpretation Comments ALANINE AMINOTRANSFERASE 18 See_Comment [A utomated message] (test code = ALANINE The sys tem which AMINOTRANSFERASE) generated this result transmitted ref erence range: <=65. Th e reference range was not used to int erpret this result as normal/abnormal . [facility]2016-07-17 10:37:00 Test Item Value Reference Range Interpretation Comments ASPARTATE TRANSAMINASE 15 See_Comment [Aut omated message] (test code = ASPARTATE The s ystem which TRANSAMINASE) generated this result transmitted ref erence range: <=37. Th e reference range was not used to interpr et this result as normal/abnormal . [facility]2016-07-17 10:37:00 Test Item Value Reference Range Interpretation Comments Total Protein (test code = Total 4.9 6.4-8.4 Protein) [facility]2016-07-17 10:37:00 Test Item Value Reference Range Interpretation Comments Albumin Lvl (test code = Albumin Lvl) 2.2 3.5-5.0 [facility]2016-07-17 10:37:00 Test Item Value Reference Range Interpretation Comments A/G Ratio (test code = A/G Ratio) 0.8 0.7-1.6 [facility]2016-07-17 10:37:00 Test Item Value Reference Range Interpretation Comments Globulin (test code = Globulin) 2.7 2.0-4.0 [facility]2016-07-17 10:37:00 Test Item Value Reference Range Interpretation Comments Calcium Lvl (test code = Calcium Lvl) 6.4 8.5-10.5 [facility]2016-07-17 10:37:00 Test Item Value Reference Range Interpretation Comments B/C Ratio (test code = B/C Ratio) 17 6-25 [facility]2016-07-17 10:37:00 Test Item Value Reference Range Interpretation Comments CO2 (test code = CO2) 22 24-32 [facility]2016-07-17 10:37:00 Test Item Value Reference Range Interpretation Comments AGAP (test code = AGAP) 13.7 10.0-20.0 [facility]2016-07-17 10:37:00 Test Item Value Reference Range Interpretation Comments Glucose Lvl (test code = Glucose Lvl) 98 70-99 [facility]2016-07-17 10:37:00 Test Item Value Reference Range Interpretation Comments Creatinine Lvl (test code = Creatinine 0.46 0.50-1.40 Lvl) [facility]2016-07-17 10:37:00 Test Item Value Reference Range Interpretation Comments Sodium Lvl (test code = Sodium Lvl) 148 135-145 [facility]2016-07-17 10:37:00 Test Item Value Reference Range Interpretation Comments Potassium Lvl (test code = Potassium 2.7 3.5-5.1 Lvl) [facility]2016-07-17 10:37:00 Test Item Value Reference Range Interpretation Comments Chloride Lvl (test code = Chloride Lvl) 115 95-109 [facility]2016-07-17 10:37:00 Test Item Value Reference Range Interpretation Comments BUN (test code = BUN) 8 7-22 [facility]2016-07-17 10:37:00 Test Item Value Reference Range Interpretation Comments Phosphorus (test code = Phosphorus) 2.4 2.5-4.5 [facility] PasoObvcowrIKOYEHJUBO3255-36-14 10:37:00 Test Item Value Reference Range Interpretation Comments Segs (test code = Segs) 79.4 45.0-75.0 [facility] PasoTfkenmbOGNMYKZNKD0186-89-87 10:37:00 Test Item Value Reference Range Interpretation Comments Eosinophils (test code = 0.2 See_Comment [A utomated message] The Eosinophils) system which ge nerated this result tra nsmitted reference range : <=4.0. The reference r lily was not used to int erpret this result as normal/abnormal . [facility] PasoOpbwudyBMDWKUFEIZ2920-95-49 10:37:00 Test Item Value Reference Range Interpretation Comments Basophils (test code = 0.1 See_Comment [Aut omated message] The Basophils) system which ge nerated this result tra nsmitted reference range : <=1.0. The reference r lily was not used to int erpret this result as normal/abnormal . [facility] PasoAafvhbaMOXWLYZROU3339-77-11 10:37:00 Test Item Value Reference Range Interpretation Comments Lymphocytes (test code = Lymphocytes) 12.0 20.0-40.0 [facility] PasoZkwoojsIYNLUXGDIU3014-69-94 10:37:00 Test Item Value Reference Range Interpretation Comments Lymphocytes # (test code = Lymphocytes 1.3 1.0-5.5 #) [facility] PasoGmowwzfZTXMWXGQFP3575-59-91 10:37:00 Test Item Value Reference Range Interpretation Comments Segs-Bands # (test code = Segs-Bands #) 8.6 1.5-8.1 [facility] PasoJfhsnzuPQZKYKJDKG6817-62-49 10:37:00 Test Item Value Reference Range Interpretation Comments Monocytes (test code = Monocytes) 8.3 2.0-12.0 [facility] PasoWxdotyhTEYIXJQOQR5219-11-95 10:37:00 Test Item Value Reference Range Interpretation Comments Monocytes # (test code 0.9 See_Comment [Aut omated message] The = Monocytes #) system which generated this result tra nsmitted reference range : <=0.8. The reference r lily was not used to int erpret this result as normal/abnormal . [facility] PasoXjdonarXESCPZZKDX9038-83-19 10:37:00 Test Item Value Reference Range Interpretation Comments RBC (test code = RBC) 3.98 4.20-5.40 [facility] PasoDazvmcoVMQAJVMPVX9859-36-14 10:37:00 Test Item Value Reference Range Interpretation Comments Hct (test code = Hct) 35.5 36.0-48.0 [facility] PasoCsyukcsCEUTBVFFBU1485-40-11 10:37:00 Test Item Value Reference Range Interpretation Comments Hgb (test code = Hgb) 11.9 12.0-16.0 [facility] PasoGlzpgdbPIWXAHARHM1417-56-26 10:37:00 Test Item Value Reference Range Interpretation Comments RDW (test code = RDW) 13.4 11.5-14.5 [facility] PasoUgpfzsbQZBKIPTOQG6150-55-72 10:37:00 Test Item Value Reference Range Interpretation Comments WBC (test code = WBC) 10.8 3.7-10.4 [facility] PasoSbuskzbWIXBZKRBRR3660-14-51 10:37:00 Test Item Value Reference Range Interpretation Comments Platelet (test code = Platelet) 166 133-450 [facility] PasoOqzznjsMENWZQYRQD9228-34-82 10:37:00 Test Item Value Reference Range Interpretation Comments MCHC (test code = MCHC) 33.6 32.0-36.0 [facility] PasoNzrdaewPPGOHMRBZU6924-10-20 10:37:00 Test Item Value Reference Range Interpretation Comments MCH (test code = MCH) 30.0 pg 27.0-31.0 [facility] PasoGrroengENZTNXORRH2414-10-14 10:37:00 Test Item Value Reference Range Interpretation Comments MCV (test code = MCV) 89.3 80.0-98.0 [facility] PasoJimqhrsYSNUXRFWGD7927-44-86 10:37:00 Test Item Value Reference Range Interpretation Comments MPV (test code = MPV) 11.3 7.4-10.4 [facility]2016-07-17 10:37:00 Test Item Value Reference Range Interpretation Comments Magnesium Lvl (test code = Magnesium 1.2 1.8-2.4 Lvl) [facility]2016-07-17 10:37:00 Test Item Value Reference Range Interpretation Comments eGFR (test code = eGFR) 107 [facility]2016-07-17 10:37:00 Test Item Value Reference Range Interpretation Comments Bili Total (test code = Bili Total) 0.6 0.2-1.3 [facility]2016-07-17 10:37:00 Test Item Value Reference Range Interpretation Comments Alk Phos (test code = Alk Phos) 49 39-136 [facility]2016-07-17 10:37:00 Test Item Value Reference Range Interpretation Comments ALANINE AMINOTRANSFERASE 18 See_Comment [A utomated message] (test code = ALANINE The sys tem which AMINOTRANSFERASE) generated this result transmitted ref erence range: <=65. Th e reference range was not used to int erpret this result as normal/abnormal . [facility]2016-07-17 10:37:00 Test Item Value Reference Range Interpretation Comments ASPARTATE TRANSAMINASE 15 See_Comment [Aut omated message] (test code = ASPARTATE The s ystem which TRANSAMINASE) generated this result transmitted ref erence range: <=37. Th e reference range was not used to interpr et this result as normal/abnormal . [facility]2016-07-17 10:37:00 Test Item Value Reference Range Interpretation Comments Total Protein (test code = Total 4.9 6.4-8.4 Protein) [facility]2016-07-17 10:37:00 Test Item Value Reference Range Interpretation Comments Albumin Lvl (test code = Albumin Lvl) 2.2 3.5-5.0 [facility]2016-07-17 10:37:00 Test Item Value Reference Range Interpretation Comments A/G Ratio (test code = A/G Ratio) 0.8 0.7-1.6 [facility]2016-07-17 10:37:00 Test Item Value Reference Range Interpretation Comments Globulin (test code = Globulin) 2.7 2.0-4.0 [facility]2016-07-17 10:37:00 Test Item Value Reference Range Interpretation Comments Calcium Lvl (test code = Calcium Lvl) 6.4 8.5-10.5 [facility]2016-07-17 10:37:00 Test Item Value Reference Range Interpretation Comments B/C Ratio (test code = B/C Ratio) 17 6-25 [facility]2016-07-17 10:37:00 Test Item Value Reference Range Interpretation Comments CO2 (test code = CO2) 22 24-32 [facility]2016-07-17 10:37:00 Test Item Value Reference Range Interpretation Comments AGAP (test code = AGAP) 13.7 10.0-20.0 [facility]2016-07-17 10:37:00 Test Item Value Reference Range Interpretation Comments Glucose Lvl (test code = Glucose Lvl) 98 70-99 [facility]2016-07-17 10:37:00 Test Item Value Reference Range Interpretation Comments Creatinine Lvl (test code = Creatinine 0.46 0.50-1.40 Lvl) [facility]2016-07-17 10:37:00 Test Item Value Reference Range Interpretation Comments Sodium Lvl (test code = Sodium Lvl) 148 135-145 [facility]2016-07-17 10:37:00 Test Item Value Reference Range Interpretation Comments Potassium Lvl (test code = Potassium 2.7 3.5-5.1 Lvl) [facility]2016-07-17 10:37:00 Test Item Value Reference Range Interpretation Comments Chloride Lvl (test code = Chloride Lvl) 115 95-109 [facility]2016-07-17 10:37:00 Test Item Value Reference Range Interpretation Comments BUN (test code = BUN) 8 7-22 [facility]2016-07-17 10:37:00 Test Item Value Reference Range Interpretation Comments Phosphorus (test code = Phosphorus) 2.4 2.5-4.5 [facility] PasoOwncgeoELHNTKGHHI3279-26-00 10:37:00 Test Item Value Reference Range Interpretation Comments Segs (test code = Segs) 79.4 45.0-75.0 [facility] PasoSskojcxFAYEIJBEDZ9092-28-04 10:37:00 Test Item Value Reference Range Interpretation Comments Eosinophils (test code = 0.2 See_Comment [A utomated message] The Eosinophils) system which ge nerated this result tra nsmitted reference range : <=4.0. The reference r lily was not used to int erpret this result as normal/abnormal . [facility] PasoUrgoyveBJQSJYNFCA6891-73-17 10:37:00 Test Item Value Reference Range Interpretation Comments Basophils (test code = 0.1 See_Comment [Aut omated message] The Basophils) system which ge nerated this result tra nsmitted reference range : <=1.0. The reference r lily was not used to int erpret this result as normal/abnormal . [facility] PasoPoqnyycKJDFXZUCYB5925-87-61 10:37:00 Test Item Value Reference Range Interpretation Comments Lymphocytes (test code = Lymphocytes) 12.0 20.0-40.0 [place] 101186-07-17 10:37:00 Test Item Value Reference Range Interpretation Comments Lymphocytes # (test code = Lymphocytes 1.3 1.0-5.5 #) [facility] PasoNvnophlPQBVRKOJQH4757-15-30 10:37:00 Test Item Value Reference Range Interpretation Comments Segs-Bands # (test code = Segs-Bands #) 8.6 1.5-8.1 [facility] PasoFnoptfzIMKEEOYDFF2435-33-60 10:37:00 Test Item Value Reference Range Interpretation Comments Monocytes (test code = Monocytes) 8.3 2.0-12.0 [facility] PasoNrmqudvAXCWQBHZKD5226-86-79 10:37:00 Test Item Value Reference Range Interpretation Comments Monocytes # (test code 0.9 See_Comment [Aut omated message] The = Monocytes #) system which generated this result tra nsmitted reference range : <=0.8. The reference r lily was not used to int erpret this result as normal/abnormal . [facility] PasoCmbpjamXRTXNCVUDN8790-18-60 10:37:00 Test Item Value Reference Range Interpretation Comments RBC (test code = RBC) 3.98 4.20-5.40 [facility] PasoOnixrowPKYPPODNVR0902-33-97 10:37:00 Test Item Value Reference Range Interpretation Comments Hct (test code = Hct) 35.5 36.0-48.0 [facility] PasoZbjaturOOSKSMPYZW6015-52-55 10:37:00 Test Item Value Reference Range Interpretation Comments Hgb (test code = Hgb) 11.9 12.0-16.0 [facility] PasoIhjgcssBMNQCKOKUS4075-38-08 10:37:00 Test Item Value Reference Range Interpretation Comments RDW (test code = RDW) 13.4 11.5-14.5 [facility] PasoNizansvEDDCXNNAVL7070-86-01 10:37:00 Test Item Value Reference Range Interpretation Comments WBC (test code = WBC) 10.8 3.7-10.4 [facility] PasoFjnelzhCGJJWYYLJS1772-41-38 10:37:00 Test Item Value Reference Range Interpretation Comments Platelet (test code = Platelet) 166 133-450 [facility] PasoKmlplflYKOISRWXLR8774-83-28 10:37:00 Test Item Value Reference Range Interpretation Comments MCHC (test code = MCHC) 33.6 32.0-36.0 [facility] PasoEiihagcOUOGNJVAHW2023-40-41 10:37:00 Test Item Value Reference Range Interpretation Comments MCH (test code = MCH) 30.0 pg 27.0-31.0 [facility] PasoVjncetcLWSRLDYEAI3300-42-28 10:37:00 Test Item Value Reference Range Interpretation Comments MCV (test code = MCV) 89.3 80.0-98.0 [facility] PasoLsaaqewOFPROCNKZB4054-25-28 10:37:00 Test Item Value Reference Range Interpretation Comments MPV (test code = MPV) 11.3 7.4-10.4 [facility]2016-07-17 10:37:00 Test Item Value Reference Range Interpretation Comments Magnesium Lvl (test code = Magnesium 1.2 1.8-2.4 Lvl) [facility]2016-07-17 10:37:00 Test Item Value Reference Range Interpretation Comments eGFR (test code = eGFR) 107 [facility]2016-07-17 10:37:00 Test Item Value Reference Range Interpretation Comments Bili Total (test code = Bili Total) 0.6 0.2-1.3 [facility]2016-07-17 10:37:00 Test Item Value Reference Range Interpretation Comments Alk Phos (test code = Alk Phos) 49 39-136 [facility]2016-07-17 10:37:00 Test Item Value Reference Range Interpretation Comments ALANINE AMINOTRANSFERASE 18 See_Comment [A utomated message] (test code = ALANINE The sys tem which AMINOTRANSFERASE) generated this result transmitted ref erence range: <=65. Th e reference range was not used to int erpret this result as normal/abnormal . [facility]2016-07-17 10:37:00 Test Item Value Reference Range Interpretation Comments ASPARTATE TRANSAMINASE 15 See_Comment [Aut omated message] (test code = ASPARTATE The s ystem which TRANSAMINASE) generated this result transmitted ref erence range: <=37. Th e reference range was not used to interpr et this result as normal/abnormal . [facility]2016-07-17 10:37:00 Test Item Value Reference Range Interpretation Comments Total Protein (test code = Total 4.9 6.4-8.4 Protein) [facility]2016-07-17 10:37:00 Test Item Value Reference Range Interpretation Comments Albumin Lvl (test code = Albumin Lvl) 2.2 3.5-5.0 [facility]2016-07-17 10:37:00 Test Item Value Reference Range Interpretation Comments A/G Ratio (test code = A/G Ratio) 0.8 0.7-1.6 [facility]2016-07-17 10:37:00 Test Item Value Reference Range Interpretation Comments Globulin (test code = Globulin) 2.7 2.0-4.0 [facility]2016-07-17 10:37:00 Test Item Value Reference Range Interpretation Comments Calcium Lvl (test code = Calcium Lvl) 6.4 8.5-10.5 [facility]2016-07-17 10:37:00 Test Item Value Reference Range Interpretation Comments B/C Ratio (test code = B/C Ratio) 17 09-21 [facility]2016-07-17 10:37:00 Test Item Value Reference Range Interpretation Comments CO2 (test code = CO2) - [facility]2016-07-17 10:37:00 Test Item Value Reference Range Interpretation Comments AGAP (test code = AGAP) 13.7 10.0-20.0 [facility]2016-07-17 10:37:00 Test Item Value Reference Range Interpretation Comments Glucose Lvl (test code = Glucose Lvl) 98 70-99 [facility]2016-07-17 10:37:00 Test Item Value Reference Range Interpretation Comments Creatinine Lvl (test code = Creatinine 0.46 0.50-1.40 Lvl) [facility]2016-07-17 10:37:00 Test Item Value Reference Range Interpretation Comments Sodium Lvl (test code = Sodium Lvl) 148 135-145 [facility]2016-07-17 10:37:00 Test Item Value Reference Range Interpretation Comments Potassium Lvl (test code = Potassium 2.7 3.5-5.1 Lvl) [facility]2016-07-17 10:37:00 Test Item Value Reference Range Interpretation Comments Chloride Lvl (test code = Chloride Lvl) 115 95-109 [facility]2016-07-17 10:37:00 Test Item Value Reference Range Interpretation Comments BUN (test code = BUN) 8 - [facility]2016-07-17 10:37:00 Test Item Value Reference Range Interpretation Comments Phosphorus (test code = Phosphorus) 2.4 2.5-4.5 [facility] PasoTmznvqwKZMBTWUNPC1911-71-33 10:37:00 Test Item Value Reference Range Interpretation Comments Segs (test code = Segs) 79.4 45.0-75.0 [facility] PasoBbtxjllRDBVKWADID7024-56-74 10:37:00 Test Item Value Reference Range Interpretation Comments Eosinophils (test code = 0.2 See_Comment [A utomated message] The Eosinophils) system which ge nerated this result tra nsmitted reference range : <=4.0. The reference r lily was not used to int erpret this result as normal/abnormal . [facility] PasoJypotdjROMQCREJBQ4213-22-66 10:37:00 Test Item Value Reference Range Interpretation Comments Basophils (test code = 0.1 See_Comment [Aut omated message] The Basophils) system which ge nerated this result tra nsmitted reference range : <=1.0. The reference r lily was not used to int erpret this result as normal/abnormal . [facility] PasoLtyyhbiPRDCLTFMLP6271-15-11 10:37:00 Test Item Value Reference Range Interpretation Comments Lymphocytes (test code = Lymphocytes) 12.0 20.0-40.0 [facility] PasoQabatlmWUNLOUMARX4439-34-60 10:37:00 Test Item Value Reference Range Interpretation Comments Lymphocytes # (test code = Lymphocytes 1.3 1.0-5.5 #) [facility] PasoHpeiryuQAQKITESHM9858-94-14 10:37:00 Test Item Value Reference Range Interpretation Comments Segs-Bands # (test code = Segs-Bands #) 8.6 1.5-8.1 [facility] PasoZtgqthqHDNJUTTPWA9946-39-28 10:37:00 Test Item Value Reference Range Interpretation Comments Monocytes (test code = Monocytes) 8.3 2.0-12.0 [facility] PasoEqyrnrmKLHUGHOGHQ8074-79-63 10:37:00 Test Item Value Reference Range Interpretation Comments Monocytes # (test code 0.9 See_Comment [Aut omated message] The = Monocytes #) system which generated this result tra nsmitted reference range : <=0.8. The reference r lily was not used to int erpret this result as normal/abnormal . [facility] PasoBquqdyjVGLOEOFUNS2366-14-37 10:37:00 Test Item Value Reference Range Interpretation Comments RBC (test code = RBC) 3.98 4.20-5.40 [facility] PasoWaklhtmGNFRKCTPOS6739-19-53 10:37:00 Test Item Value Reference Range Interpretation Comments Hct (test code = Hct) 35.5 36.0-48.0 [facility] PasoZkvmptkXAPSFWZLKF1009-20-99 10:37:00 Test Item Value Reference Range Interpretation Comments Hgb (test code = Hgb) 11.9 12.0-16.0 [facility] PasoYhycsdxERXIZPNIDJ8644-36-30 10:37:00 Test Item Value Reference Range Interpretation Comments RDW (test code = RDW) 13.4 11.5-14.5 [facility] PasoEylufekYEAWBORODQ4777-98-48 10:37:00 Test Item Value Reference Range Interpretation Comments WBC (test code = WBC) 10.8 3.7-10.4 [facility] PasoLpugzwkWGDXVCRCPQ1966-63-22 10:37:00 Test Item Value Reference Range Interpretation Comments Platelet (test code = Platelet) 166 133-450 [facility] PasoMpurpwlRYUXVKIRSY9218-15-87 10:37:00 Test Item Value Reference Range Interpretation Comments MCHC (test code = MCHC) 33.6 32.0-36.0 [facility] PasoYziyjwuEGVWAKVQDD1302-60-01 10:37:00 Test Item Value Reference Range Interpretation Comments MCH (test code = MCH) 30.0 pg 27.0-31.0 [facility] PasoMirbzxxQKRWIHMWCK3570-99-64 10:37:00 Test Item Value Reference Range Interpretation Comments MCV (test code = MCV) 89.3 80.0-98.0 [facility] PasoEmlinfgHHLIGHAIBJ8144-20-39 10:37:00 Test Item Value Reference Range Interpretation Comments MPV (test code = MPV) 11.3 7.4-10.4 [facility]2016-07-17 10:37:00 Test Item Value Reference Range Interpretation Comments Magnesium Lvl (test code = Magnesium 1.2 1.8-2.4 Lvl) [facility]2016-07-17 10:37:00 Test Item Value Reference Range Interpretation Comments eGFR (test code = eGFR) 107 [facility]2016-07-17 10:37:00 Test Item Value Reference Range Interpretation Comments Bili Total (test code = Bili Total) 0.6 0.2-1.3 [facility]2016-07-17 10:37:00 Test Item Value Reference Range Interpretation Comments Alk Phos (test code = Alk Phos) 49 39-136 [facility]2016-07-17 10:37:00 Test Item Value Reference Range Interpretation Comments ALANINE AMINOTRANSFERASE 18 See_Comment [A utomated message] (test code = ALANINE The sys tem which AMINOTRANSFERASE) generated this result transmitted ref erence range: <=65. Th e reference range was not used to int erpret this result as normal/abnormal . [facility]2016-07-17 10:37:00 Test Item Value Reference Range Interpretation Comments ASPARTATE TRANSAMINASE 15 See_Comment [Aut omated message] (test code = ASPARTATE The s ystem which TRANSAMINASE) generated this result transmitted ref erence range: <=37. Th e reference range was not used to interpr et this result as normal/abnormal . [facility]2016-07-17 10:37:00 Test Item Value Reference Range Interpretation Comments Total Protein (test code = Total 4.9 6.4-8.4 Protein) [facility]2016-07-17 10:37:00 Test Item Value Reference Range Interpretation Comments Albumin Lvl (test code = Albumin Lvl) 2.2 3.5-5.0 [facility]2016-07-17 10:37:00 Test Item Value Reference Range Interpretation Comments A/G Ratio (test code = A/G Ratio) 0.8 0.7-1.6 [facility]2016-07-17 10:37:00 Test Item Value Reference Range Interpretation Comments Globulin (test code = Globulin) 2.7 2.0-4.0 [facility]2016-07-17 10:37:00 Test Item Value Reference Range Interpretation Comments Calcium Lvl (test code = Calcium Lvl) 6.4 8.5-10.5 [facility]2016-07-17 10:37:00 Test Item Value Reference Range Interpretation Comments B/C Ratio (test code = B/C Ratio) 17 - [facility]2016-07-17 10:37:00 Test Item Value Reference Range Interpretation Comments CO2 (test code = CO2) 24-32 [facility]2016-07-17 10:37:00 Test Item Value Reference Range Interpretation Comments AGAP (test code = AGAP) 13.7 10.0-20.0 [facility]2016-07-17 10:37:00 Test Item Value Reference Range Interpretation Comments Glucose Lvl (test code = Glucose Lvl) 98 70-99 [facility]2016-07-17 10:37:00 Test Item Value Reference Range Interpretation Comments Creatinine Lvl (test code = Creatinine 0.46 0.50-1.40 Lvl) [facility]2016-07-17 10:37:00 Test Item Value Reference Range Interpretation Comments Sodium Lvl (test code = Sodium Lvl) 148 135-145 [facility]2016-07-17 10:37:00 Test Item Value Reference Range Interpretation Comments Potassium Lvl (test code = Potassium 2.7 3.5-5.1 Lvl) [facility]2016-07-17 10:37:00 Test Item Value Reference Range Interpretation Comments Chloride Lvl (test code = Chloride Lvl) 115 95-109 [facility]2016-07-17 10:37:00 Test Item Value Reference Range Interpretation Comments BUN (test code = BUN) 8 7-22 [facility]2016-07-17 10:37:00 Test Item Value Reference Range Interpretation Comments Phosphorus (test code = Phosphorus) 2.4 2.5-4.5 [facility] PasoGiiaonwSEYLGOKRPY7714-60-67 10:37:00 Test Item Value Reference Range Interpretation Comments Segs (test code = Segs) 79.4 45.0-75.0 [facility] PasoHjvvfpwPJGQJJDNIK9783-57-51 10:37:00 Test Item Value Reference Range Interpretation Comments Eosinophils (test code = 0.2 See_Comment [A utomated message] The Eosinophils) system which ge nerated this result tra nsmitted reference range : <=4.0. The reference r lily was not used to int erpret this result as normal/abnormal . [facility] PasoYxjrxboPUGMIXLHOD6285-88-53 10:37:00 Test Item Value Reference Range Interpretation Comments Basophils (test code = 0.1 See_Comment [Aut omated message] The Basophils) system which ge nerated this result tra nsmitted reference range : <=1.0. The reference r lily was not used to int erpret this result as normal/abnormal . [facility] PasoKgitlrvEKOTBCMZZF8878-83-13 10:37:00 Test Item Value Reference Range Interpretation Comments Lymphocytes (test code = Lymphocytes) 12.0 20.0-40.0 [facility] PasoQouwmllSTOBIMAVTB4989-47-34 10:37:00 Test Item Value Reference Range Interpretation Comments Lymphocytes # (test code = Lymphocytes 1.3 1.0-5.5 #) [facility] PasoOjyniusBZJJBMRNSY7037-18-94 10:37:00 Test Item Value Reference Range Interpretation Comments Segs-Bands # (test code = Segs-Bands #) 8.6 1.5-8.1 [facility] PasoTjwgzknMBRIVXFSCY4259-94-75 10:37:00 Test Item Value Reference Range Interpretation Comments Monocytes (test code = Monocytes) 8.3 2.0-12.0 [facility] PasoIeorfdoPUCUVDCWJC9213-32-34 10:37:00 Test Item Value Reference Range Interpretation Comments Monocytes # (test code 0.9 See_Comment [Aut omated message] The = Monocytes #) system which generated this result tra nsmitted reference range : <=0.8. The reference r lily was not used to int erpret this result as normal/abnormal . [facility] PasoGwbiudbLBJOSPFUBJ4786-35-95 10:37:00 Test Item Value Reference Range Interpretation Comments RBC (test code = RBC) 3.98 4.20-5.40 [facility] PasoZrheadsCEGWWVZGNE7819-57-65 10:37:00 Test Item Value Reference Range Interpretation Comments Hct (test code = Hct) 35.5 36.0-48.0 [facility] PasoOyqphnbOKQVBEFNGB1903-53-94 10:37:00 Test Item Value Reference Range Interpretation Comments Hgb (test code = Hgb) 11.9 12.0-16.0 [facility] PasoGffshmnHYDQFGYLZS9725-95-04 10:37:00 Test Item Value Reference Range Interpretation Comments RDW (test code = RDW) 13.4 11.5-14.5 [facility] PasoYpywuveYWSWBHFIEW5235-85-21 10:37:00 Test Item Value Reference Range Interpretation Comments WBC (test code = WBC) 10.8 3.7-10.4 [facility] PasoGpwtdtyHQADHXYLXQ6623-44-49 10:37:00 Test Item Value Reference Range Interpretation Comments Platelet (test code = Platelet) 166 133-450 [facility] PasoRptuqywJAVCZXPSUF2697-85-20 10:37:00 Test Item Value Reference Range Interpretation Comments MCHC (test code = MCHC) 33.6 32.0-36.0 [facility] PasoLgxuxbfDMDMXPJPNT0398-95-79 10:37:00 Test Item Value Reference Range Interpretation Comments MCH (test code = MCH) 30.0 pg 27.0-31.0 [facility] PasoWtftnmzXXUQXDAEMU1653-46-85 10:37:00 Test Item Value Reference Range Interpretation Comments MCV (test code = MCV) 89.3 80.0-98.0 [facility] PasoGpjnnzqXQHDZLOULT6729-39-84 10:37:00 Test Item Value Reference Range Interpretation Comments MPV (test code = MPV) 11.3 7.4-10.4 [facility]2016-07-17 10:37:00 Test Item Value Reference Range Interpretation Comments Magnesium Lvl (test code = Magnesium 1.2 1.8-2.4 Lvl) [facility]2016-07-17 10:37:00 Test Item Value Reference Range Interpretation Comments eGFR (test code = eGFR) 107 [facility]2016-07-17 10:37:00 Test Item Value Reference Range Interpretation Comments Bili Total (test code = Bili Total) 0.6 0.2-1.3 [facility]2016-07-17 10:37:00 Test Item Value Reference Range Interpretation Comments Alk Phos (test code = Alk Phos) 49 39-136 [facility]2016-07-17 10:37:00 Test Item Value Reference Range Interpretation Comments ALANINE AMINOTRANSFERASE 18 See_Comment [A utomated message] (test code = ALANINE The sys tem which AMINOTRANSFERASE) generated this result transmitted ref erence range: <=65. Th e reference range was not used to int erpret this result as normal/abnormal . [facility]2016-07-17 10:37:00 Test Item Value Reference Range Interpretation Comments ASPARTATE TRANSAMINASE 15 See_Comment [Aut omated message] (test code = ASPARTATE The s ystem which TRANSAMINASE) generated this result transmitted ref erence range: <=37. Th e reference range was not used to interpr et this result as normal/abnormal . [facility]2016-07-17 10:37:00 Test Item Value Reference Range Interpretation Comments Total Protein (test code = Total 4.9 6.4-8.4 Protein) [facility]2016-07-17 10:37:00 Test Item Value Reference Range Interpretation Comments Albumin Lvl (test code = Albumin Lvl) 2.2 3.5-5.0 [facility]2016-07-17 10:37:00 Test Item Value Reference Range Interpretation Comments A/G Ratio (test code = A/G Ratio) 0.8 0.7-1.6 [facility]2016-07-17 10:37:00 Test Item Value Reference Range Interpretation Comments Globulin (test code = Globulin) 2.7 2.0-4.0 [facility]2016-07-17 10:37:00 Test Item Value Reference Range Interpretation Comments Calcium Lvl (test code = Calcium Lvl) 6.4 8.5-10.5 [facility]2016-07-17 10:37:00 Test Item Value Reference Range Interpretation Comments B/C Ratio (test code = B/C Ratio) 17 6-25 [facility]2016-07-17 10:37:00 Test Item Value Reference Range Interpretation Comments CO2 (test code = CO2) 22 24-32 [facility]2016-07-17 10:37:00 Test Item Value Reference Range Interpretation Comments AGAP (test code = AGAP) 13.7 10.0-20.0 [facility]2016-07-17 10:37:00 Test Item Value Reference Range Interpretation Comments Glucose Lvl (test code = Glucose Lvl) 98 70-99 [facility]2016-07-17 10:37:00 Test Item Value Reference Range Interpretation Comments Creatinine Lvl (test code = Creatinine 0.46 0.50-1.40 Lvl) [facility]2016-07-17 10:37:00 Test Item Value Reference Range Interpretation Comments Sodium Lvl (test code = Sodium Lvl) 148 135-145 [facility]2016-07-17 10:37:00 Test Item Value Reference Range Interpretation Comments Potassium Lvl (test code = Potassium 2.7 3.5-5.1 Lvl) [facility]2016-07-17 10:37:00 Test Item Value Reference Range Interpretation Comments Chloride Lvl (test code = Chloride Lvl) 115 95-109 [facility]2016-07-17 10:37:00 Test Item Value Reference Range Interpretation Comments BUN (test code = BUN) 8 7-22 [facility]2016-07-17 10:37:00 Test Item Value Reference Range Interpretation Comments Magnesium Lvl (test code = Magnesium 1.2 1.8-2.4 Lvl) [facility]2016-07-17 10:37:00 Test Item Value Reference Range Interpretation Comments Phosphorus (test code = Phosphorus) 2.4 2.5-4.5 [facility] PasoYuzcsdbZBCHBMQIAI1084-09-10 10:37:00 Test Item Value Reference Range Interpretation Comments Segs (test code = Segs) 79.4 45.0-75.0 [facility] PasoHjssxhjDJIWDFKAGN0034-36-00 10:37:00 Test Item Value Reference Range Interpretation Comments Eosinophils (test code = 0.2 See_Comment [A utomated message] The Eosinophils) system which ge nerated this result tra nsmitted reference range : <=4.0. The reference r lily was not used to int erpret this result as normal/abnormal . [facility] PasoExhyspwJBTTGWLHKQ8631-38-27 10:37:00 Test Item Value Reference Range Interpretation Comments Basophils (test code = 0.1 See_Comment [Aut omated message] The Basophils) system which ge nerated this result tra nsmitted reference range : <=1.0. The reference r lily was not used to int erpret this result as normal/abnormal . [facility] PasoFazzuhoHHOXQQSEHJ1659-19-88 10:37:00 Test Item Value Reference Range Interpretation Comments Lymphocytes (test code = Lymphocytes) 12.0 20.0-40.0 [facility] PasoNfuoedyKNHDPXBECR1581-24-17 10:37:00 Test Item Value Reference Range Interpretation Comments Lymphocytes # (test code = Lymphocytes 1.3 1.0-5.5 #) [facility] PasoPjaxeiyUZLJOJLHBM8200-61-45 10:37:00 Test Item Value Reference Range Interpretation Comments Segs-Bands # (test code = Segs-Bands #) 8.6 1.5-8.1 [facility] PasoMkdftdvDRLMBJEPKO6097-60-23 10:37:00 Test Item Value Reference Range Interpretation Comments Monocytes (test code = Monocytes) 8.3 2.0-12.0 [facility] PasoLwbdpsyKMKDNAGPPO6427-10-66 10:37:00 Test Item Value Reference Range Interpretation Comments Monocytes # (test code 0.9 See_Comment [Aut omated message] The = Monocytes #) system which generated this result tra nsmitted reference range : <=0.8. The reference r lily was not used to int erpret this result as normal/abnormal . [facility] PasoDftymlsPHDNBTOQPH7169-44-33 10:37:00 Test Item Value Reference Range Interpretation Comments RBC (test code = RBC) 3.98 4.20-5.40 [facility]2016-07-17 10:37:00 Test Item Value Reference Range Interpretation Comments eGFR (test code = eGFR) 107 [facility] PasoHlammyvHOFWAPDVWF6725-77-97 10:37:00 Test Item Value Reference Range Interpretation Comments Hct (test code = Hct) 35.5 36.0-48.0 [facility] PasoUtkfanaXDKTBXCVYW9373-83-48 10:37:00 Test Item Value Reference Range Interpretation Comments Hgb (test code = Hgb) 11.9 12.0-16.0 [facility] PasoRrdkovnAWQTWXPCAE0126-50-23 10:37:00 Test Item Value Reference Range Interpretation Comments RDW (test code = RDW) 13.4 11.5-14.5 [facility] PasoTbiohatHAYHWDGRPD3184-25-39 10:37:00 Test Item Value Reference Range Interpretation Comments WBC (test code = WBC) 10.8 3.7-10.4 [facility] PasoAbexrsxBGRMZPVOAN6368-82-11 10:37:00 Test Item Value Reference Range Interpretation Comments Platelet (test code = Platelet) 166 133-450 [facility] PasoBtvcescSPSATNDEGP4581-06-17 10:37:00 Test Item Value Reference Range Interpretation Comments MCHC (test code = MCHC) 33.6 32.0-36.0 [facility] PasoNxunxkfGRCPTXAFLN4132-41-74 10:37:00 Test Item Value Reference Range Interpretation Comments MCH (test code = MCH) 30.0 pg 27.0-31.0 [facility] PasoOjutgurDJWXBENUHE7042-53-03 10:37:00 Test Item Value Reference Range Interpretation Comments MCV (test code = MCV) 89.3 80.0-98.0 [facility] PasoAcbmcvkNVVJRPZYUC3405-17-26 10:37:00 Test Item Value Reference Range Interpretation Comments MPV (test code = MPV) 11.3 7.4-10.4 [facility]2016-07-17 10:37:00 Test Item Value Reference Range Interpretation Comments Bili Total (test code = Bili Total) 0.6 0.2-1.3 [facility]2016-07-17 10:37:00 Test Item Value Reference Range Interpretation Comments Alk Phos (test code = Alk Phos) 49 39-136 [facility]2016-07-17 10:37:00 Test Item Value Reference Range Interpretation Comments ALANINE AMINOTRANSFERASE 18 See_Comment [A utomated message] (test code = ALANINE The sys tem which AMINOTRANSFERASE) generated this result transmitted ref erence range: <=65. Th e reference range was not used to int erpret this result as normal/abnormal . [facility]2016-07-17 10:37:00 Test Item Value Reference Range Interpretation Comments ASPARTATE TRANSAMINASE 15 See_Comment [Aut omated message] (test code = ASPARTATE The s ystem which TRANSAMINASE) generated this result transmitted ref erence range: <=37. Th e reference range was not used to interpr et this result as normal/abnormal . [facility]2016-07-17 10:37:00 Test Item Value Reference Range Interpretation Comments Total Protein (test code = Total 4.9 6.4-8.4 Protein) [facility]2016-07-17 10:37:00 Test Item Value Reference Range Interpretation Comments Albumin Lvl (test code = Albumin Lvl) 2.2 3.5-5.0 [facility]2016-07-17 10:37:00 Test Item Value Reference Range Interpretation Comments A/G Ratio (test code = A/G Ratio) 0.8 0.7-1.6 [facility]2016-07-17 10:37:00 Test Item Value Reference Range Interpretation Comments Globulin (test code = Globulin) 2.7 2.0-4.0 [facility]2016-07-17 10:37:00 Test Item Value Reference Range Interpretation Comments Calcium Lvl (test code = Calcium Lvl) 6.4 8.5-10.5 [facility]2016-07-17 10:37:00 Test Item Value Reference Range Interpretation Comments B/C Ratio (test code = B/C Ratio) 17 6-25 [facility]2016-07-17 10:37:00 Test Item Value Reference Range Interpretation Comments CO2 (test code = CO2) 22 24-32 [facility]2016-07-17 10:37:00 Test Item Value Reference Range Interpretation Comments AGAP (test code = AGAP) 13.7 10.0-20.0 [facility]2016-07-17 10:37:00 Test Item Value Reference Range Interpretation Comments Glucose Lvl (test code = Glucose Lvl) 98 70-99 [facility]2016-07-17 10:37:00 Test Item Value Reference Range Interpretation Comments Creatinine Lvl (test code = Creatinine 0.46 0.50-1.40 Lvl) [facility]2016-07-17 10:37:00 Test Item Value Reference Range Interpretation Comments Sodium Lvl (test code = Sodium Lvl) 148 135-145 [facility]2016-07-17 10:37:00 Test Item Value Reference Range Interpretation Comments Potassium Lvl (test code = Potassium 2.7 3.5-5.1 Lvl) [facility]2016-07-17 10:37:00 Test Item Value Reference Range Interpretation Comments Chloride Lvl (test code = Chloride Lvl) 115 95-109 [facility]2016-07-17 10:37:00 Test Item Value Reference Range Interpretation Comments BUN (test code = BUN) 8 7-22 [facility]2016-07-17 10:37:00 Test Item Value Reference Range Interpretation Comments Phosphorus (test code = Phosphorus) 2.4 2.5-4.5 [facility] PasoVtwyeugHSJEJWQRIA5111-57-92 10:37:00 Test Item Value Reference Range Interpretation Comments Segs (test code = Segs) 79.4 45.0-75.0 [facility] PasoDubxnivQBWSLBOBHN0039-11-66 10:37:00 Test Item Value Reference Range Interpretation Comments Eosinophils (test code = 0.2 See_Comment [A utomated message] The Eosinophils) system which ge nerated this result tra nsmitted reference range : <=4.0. The reference r lily was not used to int erpret this result as normal/abnormal . [facility] PasoVsrphgrOQYDLLXJJT0387-61-54 10:37:00 Test Item Value Reference Range Interpretation Comments Basophils (test code = 0.1 See_Comment [Aut omated message] The Basophils) system which ge nerated this result tra nsmitted reference range : <=1.0. The reference r lily was not used to int erpret this result as normal/abnormal . [facility] PasoSthavjuMSGPBSEHHB6864-30-84 10:37:00 Test Item Value Reference Range Interpretation Comments Lymphocytes (test code = Lymphocytes) 12.0 20.0-40.0 [facility] PasoPjtizggRIKETUBBHX4919-45-42 10:37:00 Test Item Value Reference Range Interpretation Comments Lymphocytes # (test code = Lymphocytes 1.3 1.0-5.5 #) [facility] PasoElczuqxYRCKNPQXNU8517-18-63 10:37:00 Test Item Value Reference Range Interpretation Comments Segs-Bands # (test code = Segs-Bands #) 8.6 1.5-8.1 [facility] PasoDcbmsxmFGZQFLJVNX4068-33-87 10:37:00 Test Item Value Reference Range Interpretation Comments Monocytes (test code = Monocytes) 8.3 2.0-12.0 [facility]2016-07-17 10:37:00 Test Item Value Reference Range Interpretation Comments Magnesium Lvl (test code = Magnesium 1.2 1.8-2.4 Lvl) [facility]2016-07-17 10:37:00 Test Item Value Reference Range Interpretation Comments eGFR (test code = eGFR) 107 [facility]2016-07-17 10:37:00 Test Item Value Reference Range Interpretation Comments Bili Total (test code = Bili Total) 0.6 0.2-1.3 [facility]2016-07-17 10:37:00 Test Item Value Reference Range Interpretation Comments Alk Phos (test code = Alk Phos) 49 39-136 [facility]2016-07-17 10:37:00 Test Item Value Reference Range Interpretation Comments ALANINE AMINOTRANSFERASE 18 See_Comment [A utomated message] (test code = ALANINE The sys tem which AMINOTRANSFERASE) generated this result transmitted ref erence range: <=65. Th e reference range was not used to int erpret this result as normal/abnormal . [facility]2016-07-17 10:37:00 Test Item Value Reference Range Interpretation Comments ASPARTATE TRANSAMINASE 15 See_Comment [Aut omated message] (test code = ASPARTATE The s ystem which TRANSAMINASE) generated this result transmitted ref erence range: <=37. Th e reference range was not used to interpr et this result as normal/abnormal . [facility]2016-07-17 10:37:00 Test Item Value Reference Range Interpretation Comments Total Protein (test code = Total 4.9 6.4-8.4 Protein) [facility]mklmFRSXQGMPSP0015-35-16 10:37:00 Test Item Value Reference Range Interpretation Comments Monocytes # (test code 0.9 See_Comment [Aut omated message] The = Monocytes #) system which generated this result tra nsmitted reference range : <=0.8. The reference r lily was not used to int erpret this result as normal/abnormal . [facility]2016-07-17 10:37:00 Test Item Value Reference Range Interpretation Comments Albumin Lvl (test code = Albumin Lvl) 2.2 3.5-5.0 [facility]2016-07-17 10:37:00 Test Item Value Reference Range Interpretation Comments A/G Ratio (test code = A/G Ratio) 0.8 0.7-1.6 [facility]2016-07-17 10:37:00 Test Item Value Reference Range Interpretation Comments Globulin (test code = Globulin) 2.7 2.0-4.0 [facility]2016-07-17 10:37:00 Test Item Value Reference Range Interpretation Comments Calcium Lvl (test code = Calcium Lvl) 6.4 8.5-10.5 [facility]2016-07-17 10:37:00 Test Item Value Reference Range Interpretation Comments B/C Ratio (test code = B/C Ratio) 17 6-25 [facility]2016-07-17 10:37:00 Test Item Value Reference Range Interpretation Comments CO2 (test code = CO2) 24-32 [facility]2016-07-17 10:37:00 Test Item Value Reference Range Interpretation Comments AGAP (test code = AGAP) 13.7 10.0-20.0 [facility]2016-07-17 10:37:00 Test Item Value Reference Range Interpretation Comments Glucose Lvl (test code = Glucose Lvl) 98 70-99 [facility]2016-07-17 10:37:00 Test Item Value Reference Range Interpretation Comments Creatinine Lvl (test code = Creatinine 0.46 0.50-1.40 Lvl) [facility]2016-07-17 10:37:00 Test Item Value Reference Range Interpretation Comments Sodium Lvl (test code = Sodium Lvl) 148 135-145 [facility] PasoJqdeasfARHWUAYECU1337-95-41 10:37:00 Test Item Value Reference Range Interpretation Comments RBC (test code = RBC) 3.98 4.20-5.40 [facility]2016-07-17 10:37:00 Test Item Value Reference Range Interpretation Comments Potassium Lvl (test code = Potassium 2.7 3.5-5.1 Lvl) [facility]2016-07-17 10:37:00 Test Item Value Reference Range Interpretation Comments Chloride Lvl (test code = Chloride Lvl) 115 95-109 [facility]2016-07-17 10:37:00 Test Item Value Reference Range Interpretation Comments BUN (test code = BUN) 8 7-22 [facility]2016-07-17 10:37:00 Test Item Value Reference Range Interpretation Comments Phosphorus (test code = Phosphorus) 2.4 2.5-4.5 [facility] PasoBusxwkbZYWSSPPCXM8492-17-60 10:37:00 Test Item Value Reference Range Interpretation Comments Segs (test code = Segs) 79.4 45.0-75.0 [facility] PasoPftfajbPQJGBSKFEE0129-46-18 10:37:00 Test Item Value Reference Range Interpretation Comments Eosinophils (test code = 0.2 See_Comment [A utomated message] The Eosinophils) system which nerated this result tra nsmitted reference range : <=4.0. The reference r lily was not used to int erpret this result as normal/abnormal . [facility] PasoQlntludWTUYCKHLZU9944-54-09 10:37:00 Test Item Value Reference Range Interpretation Comments Basophils (test code = 0.1 See_Comment [Aut omated message] The Basophils) system which ge nerated this result tra nsmitted reference range : <=1.0. The reference r lily was not used to int erpret this result as normal/abnormal . [facility] PasoKiblimdQDBKTHNGPN5735-18-65 10:37:00 Test Item Value Reference Range Interpretation Comments Lymphocytes (test code = Lymphocytes) 12.0 20.0-40.0 [facility] PasoScbvsosWWGZEGLLBT9564-56-07 10:37:00 Test Item Value Reference Range Interpretation Comments Lymphocytes # (test code = Lymphocytes 1.3 1.0-5.5 #) [facility] PasoFcdizjsXZAPTMUJCD8859-20-35 10:37:00 Test Item Value Reference Range Interpretation Comments Segs-Bands # (test code = Segs-Bands #) 8.6 1.5-8.1 [facility] PasoSksmfjrUTWVQBHXNL0511-47-99 10:37:00 Test Item Value Reference Range Interpretation Comments Hct (test code = Hct) 35.5 36.0-48.0 [facility] PasoCcynrizQALWMDWYLV7975-23-70 10:37:00 Test Item Value Reference Range Interpretation Comments Monocytes (test code = Monocytes) 8.3 2.0-12.0 [facility] PasoTzquldjWYIBXIPUCV6203-48-59 10:37:00 Test Item Value Reference Range Interpretation Comments Monocytes # (test code 0.9 See_Comment [Aut omated message] The = Monocytes #) system which generated this result tra nsmitted reference range : <=0.8. The reference r lily was not used to int erpret this result as normal/abnormal . [facility] PasoXztyzrjMNCUOQNCOS1174-61-17 10:37:00 Test Item Value Reference Range Interpretation Comments RBC (test code = RBC) 3.98 4.20-5.40 [facility] PasoDxhuxdoCNTWBMQROS5759-16-06 10:37:00 Test Item Value Reference Range Interpretation Comments Hct (test code = Hct) 35.5 36.0-48.0 [facility] PasoDodtfvtZLGQKIKBIW9435-25-97 10:37:00 Test Item Value Reference Range Interpretation Comments Hgb (test code = Hgb) 11.9 12.0-16.0 [facility] PasoIjjciadEOSDSQIJQP8572-01-79 10:37:00 Test Item Value Reference Range Interpretation Comments RDW (test code = RDW) 13.4 11.5-14.5 [facility] PasoVzswcpaQJIRMJMONS4880-13-79 10:37:00 Test Item Value Reference Range Interpretation Comments WBC (test code = WBC) 10.8 3.7-10.4 [facility] PasoIdnbkrzMTEXJWHWTZ8190-80-91 10:37:00 Test Item Value Reference Range Interpretation Comments Platelet (test code = Platelet) 166 133-450 [facility] PasoYxwrehnOMHLXOTEHV6375-80-16 10:37:00 Test Item Value Reference Range Interpretation Comments MCHC (test code = MCHC) 33.6 32.0-36.0 [facility] PasoDngqfapEQILNDQZUB1091-12-69 10:37:00 Test Item Value Reference Range Interpretation Comments MCH (test code = MCH) 30.0 pg 27.0-31.0 [facility] PasoYbjieftNRQWLCUJRZ4043-15-70 10:37:00 Test Item Value Reference Range Interpretation Comments Hgb (test code = Hgb) 11.9 12.0-16.0 [facility] PasoTtcyvycDGROYYKKVN6292-07-76 10:37:00 Test Item Value Reference Range Interpretation Comments MCV (test code = MCV) 89.3 80.0-98.0 [facility] PasoQhqusluBDHPGBHRLJ1498-23-72 10:37:00 Test Item Value Reference Range Interpretation Comments MPV (test code = MPV) 11.3 7.4-10.4 [facility] PasoHxwqlexHQJPVAOZUL2962-91-84 10:37:00 Test Item Value Reference Range Interpretation Comments RDW (test code = RDW) 13.4 11.5-14.5 [facility] PasoHpttmibQEPGVFBOSQ0189-46-26 10:37:00 Test Item Value Reference Range Interpretation Comments WBC (test code = WBC) 10.8 3.7-10.4 [facility] PasoZtwknayDLNHXYPMDG9783-50-49 10:37:00 Test Item Value Reference Range Interpretation Comments Platelet (test code = Platelet) 166 133-450 [facility] PasoSxfskwyPICVKCVZPB1206-53-61 10:37:00 Test Item Value Reference Range Interpretation Comments MCHC (test code = MCHC) 33.6 32.0-36.0 [facility] PasoZtdpbraVCJMCZYARX4758-68-09 10:37:00 Test Item Value Reference Range Interpretation Comments MCH (test code = MCH) 30.0 pg 27.0-31.0 [facility] PasoHcdzpevFUJOGCPBIT9032-17-03 10:37:00 Test Item Value Reference Range Interpretation Comments MCV (test code = MCV) 89.3 80.0-98.0 [facility] PasoYofgkgoRHBYTXISQS7340-56-97 10:37:00 Test Item Value Reference Range Interpretation Comments MPV (test code = MPV) 11.3 7.4-10.4 [facility]2016-07-17 10:37:00 Test Item Value Reference Range Interpretation Comments Magnesium Lvl (test code = Magnesium 1.2 1.8-2.4 Lvl) [facility]2016-07-17 10:37:00 Test Item Value Reference Range Interpretation Comments eGFR (test code = eGFR) 107 [facility]2016-07-17 10:37:00 Test Item Value Reference Range Interpretation Comments Bili Total (test code = Bili Total) 0.6 0.2-1.3 [facility]2016-07-17 10:37:00 Test Item Value Reference Range Interpretation Comments Alk Phos (test code = Alk Phos) 49 39-136 [facility]2016-07-17 10:37:00 Test Item Value Reference Range Interpretation Comments ALANINE AMINOTRANSFERASE 18 See_Comment [A utomated message] (test code = ALANINE The sys tem which AMINOTRANSFERASE) generated this result transmitted ref erence range: <=65. Th e reference range was not used to int erpret this result as normal/abnormal . [facility]2016-07-17 10:37:00 Test Item Value Reference Range Interpretation Comments ASPARTATE TRANSAMINASE 15 See_Comment [Aut omated message] (test code = ASPARTATE The s ystem which TRANSAMINASE) generated this result transmitted ref erence range: <=37. Th e reference range was not used to interpr et this result as normal/abnormal . [facility]2016-07-17 10:37:00 Test Item Value Reference Range Interpretation Comments Total Protein (test code = Total 4.9 6.4-8.4 Protein) [facility]2016-07-17 10:37:00 Test Item Value Reference Range Interpretation Comments Albumin Lvl (test code = Albumin Lvl) 2.2 3.5-5.0 [facility]2016-07-17 10:37:00 Test Item Value Reference Range Interpretation Comments A/G Ratio (test code = A/G Ratio) 0.8 0.7-1.6 [facility]2016-07-17 10:37:00 Test Item Value Reference Range Interpretation Comments Globulin (test code = Globulin) 2.7 2.0-4.0 [place] 523386-07-17 10:37:00 Test Item Value Reference Range Interpretation Comments Calcium Lvl (test code = Calcium Lvl) 6.4 8.5-10.5 [facility]2016-07-17 10:37:00 Test Item Value Reference Range Interpretation Comments B/C Ratio (test code = B/C Ratio) 17 6-25 [facility]2016-07-17 10:37:00 Test Item Value Reference Range Interpretation Comments CO2 (test code = CO2) 22 24-32 [facility]2016-07-17 10:37:00 Test Item Value Reference Range Interpretation Comments AGAP (test code = AGAP) 13.7 10.0-20.0 [facility]2016-07-17 10:37:00 Test Item Value Reference Range Interpretation Comments Glucose Lvl (test code = Glucose Lvl) 98 70-99 [facility]2016-07-17 10:37:00 Test Item Value Reference Range Interpretation Comments Creatinine Lvl (test code = Creatinine 0.46 0.50-1.40 Lvl) [facility]2016-07-17 10:37:00 Test Item Value Reference Range Interpretation Comments Sodium Lvl (test code = Sodium Lvl) 148 135-145 [facility]2016-07-17 10:37:00 Test Item Value Reference Range Interpretation Comments Potassium Lvl (test code = Potassium 2.7 3.5-5.1 Lvl) [facility]2016-07-17 10:37:00 Test Item Value Reference Range Interpretation Comments Chloride Lvl (test code = Chloride Lvl) 115 95-109 [facility]2016-07-17 10:37:00 Test Item Value Reference Range Interpretation Comments BUN (test code = BUN) 8 7-22 [facility]2016-07-17 10:37:00 Test Item Value Reference Range Interpretation Comments Phosphorus (test code = Phosphorus) 2.4 2.5-4.5 [facility] PasoCvdkujxEEMJNWOQMU5084-22-84 10:37:00 Test Item Value Reference Range Interpretation Comments Segs (test code = Segs) 79.4 45.0-75.0 [facility] PasoYmycnvlXMNOMJTPRP5192-29-16 10:37:00 Test Item Value Reference Range Interpretation Comments Eosinophils (test code = 0.2 See_Comment [A utomated message] The Eosinophils) system which ge nerated this result tra nsmitted reference range : <=4.0. The reference r lily was not used to int erpret this result as normal/abnormal . [facility] PasoAsyznguFODWGUNGAO9195-85-15 10:37:00 Test Item Value Reference Range Interpretation Comments Basophils (test code = 0.1 See_Comment [Aut omated message] The Basophils) system which ge nerated this result tra nsmitted reference range : <=1.0. The reference r lily was not used to int erpret this result as normal/abnormal . [facility] PasoNsrvztaEWARSAAJFP4838-09-37 10:37:00 Test Item Value Reference Range Interpretation Comments Lymphocytes (test code = Lymphocytes) 12.0 20.0-40.0 [facility] PasoIjnvehcFYIXBWBOXN2686-35-40 10:37:00 Test Item Value Reference Range Interpretation Comments Lymphocytes # (test code = Lymphocytes 1.3 1.0-5.5 #) [facility] PasoWumzxakNYWRDUXKYX2571-31-60 10:37:00 Test Item Value Reference Range Interpretation Comments Segs-Bands # (test code = Segs-Bands #) 8.6 1.5-8.1 [facility] PasoIdrsfpvDPSBVEXRMZ1964-89-89 10:37:00 Test Item Value Reference Range Interpretation Comments Monocytes (test code = Monocytes) 8.3 2.0-12.0 [facility] PasoOysyxmjVGIKKERRHF2619-68-42 10:37:00 Test Item Value Reference Range Interpretation Comments Monocytes # (test code 0.9 See_Comment [Aut omated message] The = Monocytes #) system which generated this result tra nsmitted reference range : <=0.8. The reference r lily was not used to int erpret this result as normal/abnormal . [facility] PasoAsdgruaNECMLNUDTM0909-24-73 10:37:00 Test Item Value Reference Range Interpretation Comments RBC (test code = RBC) 3.98 4.20-5.40 [facility] PasoQiwttdaGAANUTBOND4829-74-95 10:37:00 Test Item Value Reference Range Interpretation Comments Hct (test code = Hct) 35.5 36.0-48.0 [facility] PasoOvdxrntNCAJZPMVDN4298-18-41 10:37:00 Test Item Value Reference Range Interpretation Comments Hgb (test code = Hgb) 11.9 12.0-16.0 [facility] PasoZojloqrOPRYVOWFWH8469-84-67 10:37:00 Test Item Value Reference Range Interpretation Comments RDW (test code = RDW) 13.4 11.5-14.5 [facility] PasoGhhqmvxCKTIKVLSSJ7740-41-57 10:37:00 Test Item Value Reference Range Interpretation Comments WBC (test code = WBC) 10.8 3.7-10.4 [facility] PasoVaepxgvXOKOUHFETP9421-12-70 10:37:00 Test Item Value Reference Range Interpretation Comments Platelet (test code = Platelet) 166 133-450 [facility] PasoAhxkjmuEJESIFMGNO7772-47-88 10:37:00 Test Item Value Reference Range Interpretation Comments MCHC (test code = MCHC) 33.6 32.0-36.0 [facility] PasoCtluwkqCJKYJQGUUT8164-50-17 10:37:00 Test Item Value Reference Range Interpretation Comments MCH (test code = MCH) 30.0 pg 27.0-31.0 [facility] PasoUdvgutnKKJPXBCDOB9429-64-19 10:37:00 Test Item Value Reference Range Interpretation Comments MCV (test code = MCV) 89.3 80.0-98.0 [facility] PasoWwungezTBUQYUZTBD4720-30-42 10:37:00 Test Item Value Reference Range Interpretation Comments MPV (test code = MPV) 11.3 7.4-10.4 [facility]2016-07-17 10:37:00 Test Item Value Reference Range Interpretation Comments Magnesium Lvl (test code = Magnesium 1.2 1.8-2.4 Lvl) [facility]2016-07-17 10:37:00 Test Item Value Reference Range Interpretation Comments eGFR (test code = eGFR) 107 [facility]2016-07-17 10:37:00 Test Item Value Reference Range Interpretation Comments Bili Total (test code = Bili Total) 0.6 0.2-1.3 [facility]2016-07-17 10:37:00 Test Item Value Reference Range Interpretation Comments Alk Phos (test code = Alk Phos) 49 39-136 [facility]2016-07-17 10:37:00 Test Item Value Reference Range Interpretation Comments ALANINE AMINOTRANSFERASE 18 See_Comment [A utomated message] (test code = ALANINE The sys tem which AMINOTRANSFERASE) generated this result transmitted ref erence range: <=65. Th e reference range was not used to int erpret this result as normal/abnormal . [facility]2016-07-17 10:37:00 Test Item Value Reference Range Interpretation Comments ASPARTATE TRANSAMINASE 15 See_Comment [Aut omated message] (test code = ASPARTATE The s ystem which TRANSAMINASE) generated this result transmitted ref erence range: <=37. Th e reference range was not used to interpr et this result as normal/abnormal . [facility]2016-07-17 10:37:00 Test Item Value Reference Range Interpretation Comments Total Protein (test code = Total 4.9 6.4-8.4 Protein) [facility]2016-07-17 10:37:00 Test Item Value Reference Range Interpretation Comments Albumin Lvl (test code = Albumin Lvl) 2.2 3.5-5.0 [facility]2016-07-17 10:37:00 Test Item Value Reference Range Interpretation Comments A/G Ratio (test code = A/G Ratio) 0.8 0.7-1.6 [facility]2016-07-17 10:37:00 Test Item Value Reference Range Interpretation Comments Globulin (test code = Globulin) 2.7 2.0-4.0 [facility]2016-07-17 10:37:00 Test Item Value Reference Range Interpretation Comments Calcium Lvl (test code = Calcium Lvl) 6.4 8.5-10.5 [facility]2016-07-17 10:37:00 Test Item Value Reference Range Interpretation Comments B/C Ratio (test code = B/C Ratio) 17 6-25 [facility]2016-07-17 10:37:00 Test Item Value Reference Range Interpretation Comments CO2 (test code = CO2) 22 24-32 [facility]2016-07-17 10:37:00 Test Item Value Reference Range Interpretation Comments AGAP (test code = AGAP) 13.7 10.0-20.0 [facility]2016-07-17 10:37:00 Test Item Value Reference Range Interpretation Comments Glucose Lvl (test code = Glucose Lvl) 98 70-99 [facility]2016-07-17 10:37:00 Test Item Value Reference Range Interpretation Comments Creatinine Lvl (test code = Creatinine 0.46 0.50-1.40 Lvl) [facility]2016-07-17 10:37:00 Test Item Value Reference Range Interpretation Comments Sodium Lvl (test code = Sodium Lvl) 148 135-145 [facility]2016-07-17 10:37:00 Test Item Value Reference Range Interpretation Comments Potassium Lvl (test code = Potassium 2.7 3.5-5.1 Lvl) [facility]2016-07-17 10:37:00 Test Item Value Reference Range Interpretation Comments Chloride Lvl (test code = Chloride Lvl) 115 95-109 [facility]2016-07-17 10:37:00 Test Item Value Reference Range Interpretation Comments BUN (test code = BUN) 8 7-22 [facility]2016-07-17 10:37:00 Test Item Value Reference Range Interpretation Comments Phosphorus (test code = Phosphorus) 2.4 2.5-4.5 [facility] PasoHduysiqUSMHKYWKNG0317-03-95 10:37:00 Test Item Value Reference Range Interpretation Comments Segs (test code = Segs) 79.4 45.0-75.0 [facility] PasoXcklespAAZXDLNOMG9803-13-63 10:37:00 Test Item Value Reference Range Interpretation Comments Eosinophils (test code = 0.2 See_Comment [A utomated message] The Eosinophils) system which nerated this result tra nsmitted reference range : <=4.0. The reference r lily was not used to int erpret this result as normal/abnormal . [facility] PasoLftoouxVUGGTKFOBO0476-88-69 10:37:00 Test Item Value Reference Range Interpretation Comments Basophils (test code = 0.1 See_Comment [Aut omated message] The Basophils) system which ge nerated this result tra nsmitted reference range : <=1.0. The reference r lily was not used to int erpret this result as normal/abnormal . [facility] PasoBpreozqSFWPWAFULP5291-65-79 10:37:00 Test Item Value Reference Range Interpretation Comments Lymphocytes (test code = Lymphocytes) 12.0 20.0-40.0 [facility] PasoNgflfeoOLRXYPQIWL3745-00-32 10:37:00 Test Item Value Reference Range Interpretation Comments Lymphocytes # (test code = Lymphocytes 1.3 1.0-5.5 #) [facility] PasoTgqtcgdHBZZQACIEH6223-32-66 10:37:00 Test Item Value Reference Range Interpretation Comments Segs-Bands # (test code = Segs-Bands #) 8.6 1.5-8.1 [facility] PasoUotghjoUVOWVGKAEJ7431-15-65 10:37:00 Test Item Value Reference Range Interpretation Comments Monocytes (test code = Monocytes) 8.3 2.0-12.0 [facility] PasoExmfjsbYYAPSZENXC2282-15-15 10:37:00 Test Item Value Reference Range Interpretation Comments Monocytes # (test code 0.9 See_Comment [Aut omated message] The = Monocytes #) system which generated this result tra nsmitted reference range : <=0.8. The reference r lliy was not used to int erpret this result as normal/abnormal . [facility] PasoZpcdifeSZLFWRZXOK7027-09-64 10:37:00 Test Item Value Reference Range Interpretation Comments RBC (test code = RBC) 3.98 4.20-5.40 [facility] PasoFbjqahgGIKDSKUKVE5913-84-20 10:37:00 Test Item Value Reference Range Interpretation Comments Hct (test code = Hct) 35.5 36.0-48.0 [facility] PasoLnbottbOZPLYRXKPT2599-19-31 10:37:00 Test Item Value Reference Range Interpretation Comments Hgb (test code = Hgb) 11.9 12.0-16.0 [facility] PasoAplrkkdLGPMNVTURJ6940-98-33 10:37:00 Test Item Value Reference Range Interpretation Comments RDW (test code = RDW) 13.4 11.5-14.5 [facility] PasoBymzvplWZHPBETGDU9559-75-87 10:37:00 Test Item Value Reference Range Interpretation Comments WBC (test code = WBC) 10.8 3.7-10.4 [facility] PasoPywmuwtEJFWWVUSWE9670-52-37 10:37:00 Test Item Value Reference Range Interpretation Comments Platelet (test code = Platelet) 166 133-450 [facility] PasoEdujtqiHERREJGJQG2759-10-04 10:37:00 Test Item Value Reference Range Interpretation Comments MCHC (test code = MCHC) 33.6 32.0-36.0 [facility] PasoSyednpeLPLIGNBSGC3031-48-30 10:37:00 Test Item Value Reference Range Interpretation Comments MCH (test code = MCH) 30.0 pg 27.0-31.0 [facility] PasoYyvmdiqZZBPZLYRCG0005-56-59 10:37:00 Test Item Value Reference Range Interpretation Comments MCV (test code = MCV) 89.3 80.0-98.0 [facility] PasoIeqwxtxBPWKHGXGMT1309-20-45 10:37:00 Test Item Value Reference Range Interpretation Comments MPV (test code = MPV) 11.3 7.4-10.4 [facility]2016-07-17 10:37:00 Test Item Value Reference Range Interpretation Comments Magnesium Lvl (test code = Magnesium 1.2 1.8-2.4 Lvl) [facility]2016-07-17 10:37:00 Test Item Value Reference Range Interpretation Comments eGFR (test code = eGFR) 107 [facility]2016-07-17 10:37:00 Test Item Value Reference Range Interpretation Comments Bili Total (test code = Bili Total) 0.6 0.2-1.3 [facility]2016-07-17 10:37:00 Test Item Value Reference Range Interpretation Comments Alk Phos (test code = Alk Phos) 49 39-136 [facility]2016-07-17 10:37:00 Test Item Value Reference Range Interpretation Comments ALANINE AMINOTRANSFERASE 18 See_Comment [A utomated message] (test code = ALANINE The sys tem which AMINOTRANSFERASE) generated this result transmitted ref erence range: <=65. Th e reference range was not used to int erpret this result as normal/abnormal . [facility]2016-07-17 10:37:00 Test Item Value Reference Range Interpretation Comments ASPARTATE TRANSAMINASE 15 See_Comment [Aut omated message] (test code = ASPARTATE The s ystem which TRANSAMINASE) generated this result transmitted ref erence range: <=37. Th e reference range was not used to interpr et this result as normal/abnormal . [facility]2016-07-17 10:37:00 Test Item Value Reference Range Interpretation Comments Total Protein (test code = Total 4.9 6.4-8.4 Protein) [facility]2016-07-17 10:37:00 Test Item Value Reference Range Interpretation Comments Albumin Lvl (test code = Albumin Lvl) 2.2 3.5-5.0 [facility]2016-07-17 10:37:00 Test Item Value Reference Range Interpretation Comments A/G Ratio (test code = A/G Ratio) 0.8 0.7-1.6 [facility]2016-07-17 10:37:00 Test Item Value Reference Range Interpretation Comments Globulin (test code = Globulin) 2.7 2.0-4.0 [facility]2016-07-17 10:37:00 Test Item Value Reference Range Interpretation Comments Calcium Lvl (test code = Calcium Lvl) 6.4 8.5-10.5 [facility]2016-07-17 10:37:00 Test Item Value Reference Range Interpretation Comments B/C Ratio (test code = B/C Ratio) 17 - [facility]2016-07-17 10:37:00 Test Item Value Reference Range Interpretation Comments CO2 (test code = CO2) - [facility]2016-07-17 10:37:00 Test Item Value Reference Range Interpretation Comments AGAP (test code = AGAP) 13.7 10.0-20.0 [facility]2016-07-17 10:37:00 Test Item Value Reference Range Interpretation Comments Glucose Lvl (test code = Glucose Lvl) 98 70-99 [facility]2016-07-17 10:37:00 Test Item Value Reference Range Interpretation Comments Creatinine Lvl (test code = Creatinine 0.46 0.50-1.40 Lvl) [facility]2016-07-17 10:37:00 Test Item Value Reference Range Interpretation Comments Sodium Lvl (test code = Sodium Lvl) 148 135-145 [facility]2016-07-17 10:37:00 Test Item Value Reference Range Interpretation Comments Potassium Lvl (test code = Potassium 2.7 3.5-5.1 Lvl) [facility] [facility] 10:37:00 Test Item Value Reference Range Interpretation Comments Chloride Lvl (test code = Chloride Lvl) 115 95-109 [facility]2016-07-17 10:37:00 Test Item Value Reference Range Interpretation Comments BUN (test code = BUN) 8 - [facility]2016-07-17 10:37:00 Test Item Value Reference Range Interpretation Comments Phosphorus (test code = Phosphorus) 2.4 2.5-4.5 [facility]bqbqyzOMBSQKKCNC9986-22-21 10:37:00 Test Item Value Reference Range Interpretation Comments Segs (test code = Segs) 79.4 45.0-75.0 [facility]QxtteutNAUTYRBOQJ0671-59-56 10:37:00 Test Item Value Reference Range Interpretation Comments Eosinophils (test code = 0.2 See_Comment [A utomated message] The Eosinophils) system which ge nerated this result tra nsmitted reference range : <=4.0. The reference r lily was not used to int erpret this result as normal/abnormal . [facility] PasoWdhwzhdPFRIQTHENI4645-08-23 10:37:00 Test Item Value Reference Range Interpretation Comments Basophils (test code = 0.1 See_Comment [Aut omated message] The Basophils) system which ge nerated this result tra nsmitted reference range : <=1.0. The reference r lily was not used to int erpret this result as normal/abnormal . [facility] PasoImlslorKPUNZWYYRX6526-59-83 10:37:00 Test Item Value Reference Range Interpretation Comments Lymphocytes (test code = Lymphocytes) 12.0 20.0-40.0 [facility] PasoCqtiiljQLDSONCNNX4312-93-94 10:37:00 Test Item Value Reference Range Interpretation Comments Lymphocytes # (test code = Lymphocytes 1.3 1.0-5.5 #) [facility] PasoDwdktbyEZERNIKDDW2825-97-06 10:37:00 Test Item Value Reference Range Interpretation Comments Segs-Bands # (test code = Segs-Bands #) 8.6 1.5-8.1 [facility] PasoIjvgskyVIJZHTPRER8530-33-22 10:37:00 Test Item Value Reference Range Interpretation Comments Monocytes (test code = Monocytes) 8.3 2.0-12.0 [facility] PasoJsshqjqRMDZTNKWLI7697-89-73 10:37:00 Test Item Value Reference Range Interpretation Comments Monocytes # (test code 0.9 See_Comment [Aut omated message] The = Monocytes #) system which generated this result tra nsmitted reference range : <=0.8. The reference r lily was not used to int erpret this result as normal/abnormal . [facility] PasoJveeutyZLFYLHTOIO3944-64-51 10:37:00 Test Item Value Reference Range Interpretation Comments RBC (test code = RBC) 3.98 4.20-5.40 [place] 101186-07-17 10:37:00 Test Item Value Reference Range Interpretation Comments Hct (test code = Hct) 35.5 36.0-48.0 [facility] PasoLulgqxqSKNHSAEOMC5587-21-13 10:37:00 Test Item Value Reference Range Interpretation Comments Hgb (test code = Hgb) 11.9 12.0-16.0 [facility] PasoKxwxriqUCXVBFCQGC9681-30-52 10:37:00 Test Item Value Reference Range Interpretation Comments RDW (test code = RDW) 13.4 11.5-14.5 [facility] PasoCseuwozYFVGGLVFUS0961-46-42 10:37:00 Test Item Value Reference Range Interpretation Comments WBC (test code = WBC) 10.8 3.7-10.4 [facility] PasoJwzdivbIYBEMYAGYI4215-83-83 10:37:00 Test Item Value Reference Range Interpretation Comments Platelet (test code = Platelet) 166 133-450 [facility] PasoMobvcnzTZPKDWGRKP0051-63-27 10:37:00 Test Item Value Reference Range Interpretation Comments MCHC (test code = MCHC) 33.6 32.0-36.0 [facility] PasoKeyaxeqHCURFFIGDL1180-83-85 10:37:00 Test Item Value Reference Range Interpretation Comments MCH (test code = MCH) 30.0 pg 27.0-31.0 [facility] PasoFflcvwjLGTJAKEKCO3274-61-49 10:37:00 Test Item Value Reference Range Interpretation Comments MCV (test code = MCV) 89.3 80.0-98.0 [facility] PasoYtslnjhIEEAQOFESV6449-89-56 10:37:00 Test Item Value Reference Range Interpretation Comments MPV (test code = MPV) 11.3 7.4-10.4 [facility]2016-07-17 10:37:00 Test Item Value Reference Range Interpretation Comments Magnesium Lvl (test code = Magnesium 1.2 1.8-2.4 Lvl) [facility]2016-07-17 10:37:00 Test Item Value Reference Range Interpretation Comments eGFR (test code = eGFR) 107 [facility]2016-07-17 10:37:00 Test Item Value Reference Range Interpretation Comments Bili Total (test code = Bili Total) 0.6 0.2-1.3 [facility]2016-07-17 10:37:00 Test Item Value Reference Range Interpretation Comments Alk Phos (test code = Alk Phos) 49 39-136 [facility]2016-07-17 10:37:00 Test Item Value Reference Range Interpretation Comments ALANINE AMINOTRANSFERASE 18 See_Comment [A utomated message] (test code = ALANINE The sys tem which AMINOTRANSFERASE) generated this result transmitted ref erence range: <=65. Th e reference range was not used to int erpret this result as normal/abnormal . [facility]2016-07-17 10:37:00 Test Item Value Reference Range Interpretation Comments ASPARTATE TRANSAMINASE 15 See_Comment [Aut omated message] (test code = ASPARTATE The s ystem which TRANSAMINASE) generated this result transmitted ref erence range: <=37. Th e reference range was not used to interpr et this result as normal/abnormal . [facility]2016-07-17 10:37:00 Test Item Value Reference Range Interpretation Comments Total Protein (test code = Total 4.9 6.4-8.4 Protein) [facility]2016-07-17 10:37:00 Test Item Value Reference Range Interpretation Comments Albumin Lvl (test code = Albumin Lvl) 2.2 3.5-5.0 [facility]2016-07-17 10:37:00 Test Item Value Reference Range Interpretation Comments A/G Ratio (test code = A/G Ratio) 0.8 0.7-1.6 [facility]2016-07-17 10:37:00 Test Item Value Reference Range Interpretation Comments Globulin (test code = Globulin) 2.7 2.0-4.0 [facility]2016-07-17 10:37:00 Test Item Value Reference Range Interpretation Comments Calcium Lvl (test code = Calcium Lvl) 6.4 8.5-10.5 [facility]2016-07-17 10:37:00 Test Item Value Reference Range Interpretation Comments B/C Ratio (test code = B/C Ratio) 17 6-25 [facility]2016-07-17 10:37:00 Test Item Value Reference Range Interpretation Comments CO2 (test code = CO2) 22 24-32 [facility]2016-07-17 10:37:00 Test Item Value Reference Range Interpretation Comments AGAP (test code = AGAP) 13.7 10.0-20.0 [facility]2016-07-17 10:37:00 Test Item Value Reference Range Interpretation Comments Glucose Lvl (test code = Glucose Lvl) 98 70-99 [facility]2016-07-17 10:37:00 Test Item Value Reference Range Interpretation Comments Creatinine Lvl (test code = Creatinine 0.46 0.50-1.40 Lvl) [facility]2016-07-17 10:37:00 Test Item Value Reference Range Interpretation Comments Sodium Lvl (test code = Sodium Lvl) 148 135-145 [place] 523386-07-17 10:37:00 Test Item Value Reference Range Interpretation Comments Potassium Lvl (test code = Potassium 2.7 3.5-5.1 Lvl) [facility]2016-07-17 10:37:00 Test Item Value Reference Range Interpretation Comments Chloride Lvl (test code = Chloride Lvl) 115 95-109 [facility]2016-07-17 10:37:00 Test Item Value Reference Range Interpretation Comments BUN (test code = BUN) 8 7-22 [facility]2016-07-17 10:37:00 Test Item Value Reference Range Interpretation Comments Phosphorus (test code = Phosphorus) 2.4 2.5-4.5 [facility] PasoPmqfwsaCJUFCKNWAP5101-72-78 10:37:00 Test Item Value Reference Range Interpretation Comments Segs (test code = Segs) 79.4 45.0-75.0 [facility] PasoKrqtttnTPRAFYFYVK5754-78-04 10:37:00 Test Item Value Reference Range Interpretation Comments Eosinophils (test code = 0.2 See_Comment [A utomated message] The Eosinophils) system which nerated this result tra nsmitted reference range : <=4.0. The reference r lily was not used to int erpret this result as normal/abnormal . [facility] PasoNqhthbsPXLVMPBUKP4546-50-95 10:37:00 Test Item Value Reference Range Interpretation Comments Basophils (test code = 0.1 See_Comment [Aut omated message] The Basophils) system which nerated this result tra nsmitted reference range : <=1.0. The reference r lily was not used to int erpret this result as normal/abnormal . [facility] PasoCweaufiCBMOGZSWWI7590-93-20 10:37:00 Test Item Value Reference Range Interpretation Comments Lymphocytes (test code = Lymphocytes) 12.0 20.0-40.0 [facility] PasoFrkztfvZQYTBBHLAX8997-45-22 10:37:00 Test Item Value Reference Range Interpretation Comments Lymphocytes # (test code = Lymphocytes 1.3 1.0-5.5 #) [facility] PasoQjaumabEXTFTWQLEL8576-15-16 10:37:00 Test Item Value Reference Range Interpretation Comments Segs-Bands # (test code = Segs-Bands #) 8.6 1.5-8.1 [facility] PasoNqkaacaPPDCMKQZAC0238-11-30 10:37:00 Test Item Value Reference Range Interpretation Comments Monocytes (test code = Monocytes) 8.3 2.0-12.0 [facility] PasoAawcjmoOMEOOERDNT0102-76-83 10:37:00 Test Item Value Reference Range Interpretation Comments Monocytes # (test code 0.9 See_Comment [Aut omated message] The = Monocytes #) system which generated this result tra nsmitted reference range : <=0.8. The reference r lily was not used to int erpret this result as normal/abnormal . [facility] PasoStjaksyYPKQOTHKZX8924-31-49 10:37:00 Test Item Value Reference Range Interpretation Comments RBC (test code = RBC) 3.98 4.20-5.40 [facility] PasoYqsogwjXJRNDCATAS7150-23-89 10:37:00 Test Item Value Reference Range Interpretation Comments Hct (test code = Hct) 35.5 36.0-48.0 [facility] PasoKboxvmyIOOCOQHOYX3984-12-38 10:37:00 Test Item Value Reference Range Interpretation Comments Hgb (test code = Hgb) 11.9 12.0-16.0 [facility] PasoZsnerepPRUJKNLTZP9361-26-90 10:37:00 Test Item Value Reference Range Interpretation Comments RDW (test code = RDW) 13.4 11.5-14.5 [facility] PasoTcpyvvgMUTWHBBKWY6269-56-94 10:37:00 Test Item Value Reference Range Interpretation Comments WBC (test code = WBC) 10.8 3.7-10.4 [facility] PasoUuforlwVGDJMQWTBJ0781-69-47 10:37:00 Test Item Value Reference Range Interpretation Comments Platelet (test code = Platelet) 166 133-450 [facility] PasoJmweztwGBMNWXZKCD5419-54-29 10:37:00 Test Item Value Reference Range Interpretation Comments MCHC (test code = MCHC) 33.6 32.0-36.0 [facility] PasoJehshuyKUGRIHDLPN5481-58-16 10:37:00 Test Item Value Reference Range Interpretation Comments MCH (test code = MCH) 30.0 pg 27.0-31.0 [facility] PasoOtmakpfUSQFMWYNCI4420-11-65 10:37:00 Test Item Value Reference Range Interpretation Comments MCV (test code = MCV) 89.3 80.0-98.0 [facility] PasoMovcpzeFXNWIUMYZM4442-59-75 10:37:00 Test Item Value Reference Range Interpretation Comments MPV (test code = MPV) 11.3 7.4-10.4 [facility]2016-07-17 10:37:00 Test Item Value Reference Range Interpretation Comments Magnesium Lvl (test code = Magnesium 1.2 1.8-2.4 Lvl) [facility]2016-07-17 10:37:00 Test Item Value Reference Range Interpretation Comments eGFR (test code = eGFR) 107 [facility]2016-07-17 10:37:00 Test Item Value Reference Range Interpretation Comments Bili Total (test code = Bili Total) 0.6 0.2-1.3 [facility]2016-07-17 10:37:00 Test Item Value Reference Range Interpretation Comments Alk Phos (test code = Alk Phos) 49 39-136 [facility]2016-07-17 10:37:00 Test Item Value Reference Range Interpretation Comments ALANINE AMINOTRANSFERASE 18 See_Comment [A utomated message] (test code = ALANINE The sys tem which AMINOTRANSFERASE) generated this result transmitted ref erence range: <=65. Th e reference range was not used to int erpret this result as normal/abnormal . [facility]2016-07-17 10:37:00 Test Item Value Reference Range Interpretation Comments ASPARTATE TRANSAMINASE 15 See_Comment [Aut omated message] (test code = ASPARTATE The s ystem which TRANSAMINASE) generated this result transmitted ref erence range: <=37. Th e reference range was not used to interpr et this result as normal/abnormal . [facility]2016-07-17 10:37:00 Test Item Value Reference Range Interpretation Comments Total Protein (test code = Total 4.9 6.4-8.4 Protein) [facility]2016-07-17 10:37:00 Test Item Value Reference Range Interpretation Comments Albumin Lvl (test code = Albumin Lvl) 2.2 3.5-5.0 [facility]2016-07-17 10:37:00 Test Item Value Reference Range Interpretation Comments A/G Ratio (test code = A/G Ratio) 0.8 0.7-1.6 [facility]2016-07-17 10:37:00 Test Item Value Reference Range Interpretation Comments Globulin (test code = Globulin) 2.7 2.0-4.0 [facility]2016-07-17 10:37:00 Test Item Value Reference Range Interpretation Comments Calcium Lvl (test code = Calcium Lvl) 6.4 8.5-10.5 [facility]2016-07-17 10:37:00 Test Item Value Reference Range Interpretation Comments B/C Ratio (test code = B/C Ratio) 17 6-25 [facility]2016-07-17 10:37:00 Test Item Value Reference Range Interpretation Comments CO2 (test code = CO2) 22 24-32 [facility]2016-07-17 10:37:00 Test Item Value Reference Range Interpretation Comments AGAP (test code = AGAP) 13.7 10.0-20.0 [facility]2016-07-17 10:37:00 Test Item Value Reference Range Interpretation Comments Glucose Lvl (test code = Glucose Lvl) 98 70-99 [facility]2016-07-17 10:37:00 Test Item Value Reference Range Interpretation Comments Creatinine Lvl (test code = Creatinine 0.46 0.50-1.40 Lvl) [facility]2016-07-17 10:37:00 Test Item Value Reference Range Interpretation Comments Sodium Lvl (test code = Sodium Lvl) 148 135-145 [facility]2016-07-17 10:37:00 Test Item Value Reference Range Interpretation Comments Potassium Lvl (test code = Potassium 2.7 3.5-5.1 Lvl) [facility]2016-07-17 10:37:00 Test Item Value Reference Range Interpretation Comments Chloride Lvl (test code = Chloride Lvl) 115 95-109 [facility]2016-07-17 10:37:00 Test Item Value Reference Range Interpretation Comments BUN (test code = BUN) 8 7-22 [facility]2016-07-17 10:37:00 Test Item Value Reference Range Interpretation Comments Phosphorus (test code = Phosphorus) 2.4 2.5-4.5 [facility] PasoIxteabcWHSDCODOWE0574-54-75 10:37:00 Test Item Value Reference Range Interpretation Comments Segs (test code = Segs) 79.4 45.0-75.0 [facility] PasoIrxfasmNNMDDUCCHP7486-04-09 10:37:00 Test Item Value Reference Range Interpretation Comments Eosinophils (test code = 0.2 See_Comment [A utomated message] The Eosinophils) system which ge nerated this result tra nsmitted reference range : <=4.0. The reference r lily was not used to int erpret this result as normal/abnormal . [facility] PasoLtdhtwpVMXOKYNRUL2369-01-23 10:37:00 Test Item Value Reference Range Interpretation Comments Basophils (test code = 0.1 See_Comment [Aut omated message] The Basophils) system which ge nerated this result tra nsmitted reference range : <=1.0. The reference r lily was not used to int erpret this result as normal/abnormal . [facility] PasoGujgohkQXBYBTDBPT5416-92-90 10:37:00 Test Item Value Reference Range Interpretation Comments Lymphocytes (test code = Lymphocytes) 12.0 20.0-40.0 [facility] PasoPskexcwAKZTOAVUMD4129-54-65 10:37:00 Test Item Value Reference Range Interpretation Comments Lymphocytes # (test code = Lymphocytes 1.3 1.0-5.5 #) [facility] PasoQzhumhrUNVKXBBRBZ5196-33-48 10:37:00 Test Item Value Reference Range Interpretation Comments Segs-Bands # (test code = Segs-Bands #) 8.6 1.5-8.1 [facility] PasoZtvpfxjTXALZPNZYM2847-89-01 10:37:00 Test Item Value Reference Range Interpretation Comments Monocytes (test code = Monocytes) 8.3 2.0-12.0 [facility] PasoFyybpxgCQBSBKKBSB3302-50-21 10:37:00 Test Item Value Reference Range Interpretation Comments Monocytes # (test code 0.9 See_Comment [Aut omated message] The = Monocytes #) system which generated this result tra nsmitted reference range : <=0.8. The reference r lily was not used to int erpret this result as normal/abnormal . [facility] PasoXdnzydaBURHMBLQVV1116-82-12 10:37:00 Test Item Value Reference Range Interpretation Comments RBC (test code = RBC) 3.98 4.20-5.40 [facility] PasoCcsbkatYMNPJCNDRW7795-87-29 10:37:00 Test Item Value Reference Range Interpretation Comments Hct (test code = Hct) 35.5 36.0-48.0 [facility] PasoIuwomcrTKQHSEPPRU0179-85-19 10:37:00 Test Item Value Reference Range Interpretation Comments Hgb (test code = Hgb) 11.9 12.0-16.0 [facility] PasoLdiikgoNZQOILKZLZ5901-80-24 10:37:00 Test Item Value Reference Range Interpretation Comments RDW (test code = RDW) 13.4 11.5-14.5 [facility] PasoWevfadcJNKSDVHXBH4836-38-60 10:37:00 Test Item Value Reference Range Interpretation Comments WBC (test code = WBC) 10.8 3.7-10.4 [facility] PasoIdxngroUAOOVYLNDR8834-67-90 10:37:00 Test Item Value Reference Range Interpretation Comments Platelet (test code = Platelet) 166 133-450 [facility] PasoDlplygsMODOXSBZPY6501-11-77 10:37:00 Test Item Value Reference Range Interpretation Comments MCHC (test code = MCHC) 33.6 32.0-36.0 [facility] PasoTsdspqhAGSUBIBUSH9009-47-21 10:37:00 Test Item Value Reference Range Interpretation Comments MCH (test code = MCH) 30.0 pg 27.0-31.0 [facility] PasoJhhtcizZMDNVEPASF1747-83-51 10:37:00 Test Item Value Reference Range Interpretation Comments MCV (test code = MCV) 89.3 80.0-98.0 [facility] PasoFjwsoklBOVGWYTNFF0320-51-06 10:37:00 Test Item Value Reference Range Interpretation Comments MPV (test code = MPV) 11.3 7.4-10.4 [facility]2016-07-17 10:37:00 Test Item Value Reference Range Interpretation Comments Magnesium Lvl (test code = Magnesium 1.2 1.8-2.4 Lvl) [facility]2016-07-17 10:37:00 Test Item Value Reference Range Interpretation Comments eGFR (test code = eGFR) 107 [facility]2016-07-17 10:37:00 Test Item Value Reference Range Interpretation Comments Bili Total (test code = Bili Total) 0.6 0.2-1.3 [facility]2016-07-17 10:37:00 Test Item Value Reference Range Interpretation Comments Alk Phos (test code = Alk Phos) 49 39-136 [facility]2016-07-17 10:37:00 Test Item Value Reference Range Interpretation Comments ALANINE AMINOTRANSFERASE 18 See_Comment [A utomated message] (test code = ALANINE The sys tem which AMINOTRANSFERASE) generated this result transmitted ref erence range: <=65. Th e reference range was not used to int erpret this result as normal/abnormal . [facility]2016-07-17 10:37:00 Test Item Value Reference Range Interpretation Comments ASPARTATE TRANSAMINASE 15 See_Comment [Aut omated message] (test code = ASPARTATE The s ystem which TRANSAMINASE) generated this result transmitted ref erence range: <=37. Th e reference range was not used to interpr et this result as normal/abnormal . [facility]2016-07-17 10:37:00 Test Item Value Reference Range Interpretation Comments Total Protein (test code = Total 4.9 6.4-8.4 Protein) [facility]2016-07-17 10:37:00 Test Item Value Reference Range Interpretation Comments Albumin Lvl (test code = Albumin Lvl) 2.2 3.5-5.0 [facility]2016-07-17 10:37:00 Test Item Value Reference Range Interpretation Comments A/G Ratio (test code = A/G Ratio) 0.8 0.7-1.6 [facility]2016-07-17 10:37:00 Test Item Value Reference Range Interpretation Comments Globulin (test code = Globulin) 2.7 2.0-4.0 [facility]2016-07-17 10:37:00 Test Item Value Reference Range Interpretation Comments Calcium Lvl (test code = Calcium Lvl) 6.4 8.5-10.5 [facility]2016-07-17 10:37:00 Test Item Value Reference Range Interpretation Comments B/C Ratio (test code = B/C Ratio) 17 6-25 [facility]2016-07-17 10:37:00 Test Item Value Reference Range Interpretation Comments CO2 (test code = CO2) 22 24-32 [facility]2016-07-17 10:37:00 Test Item Value Reference Range Interpretation Comments AGAP (test code = AGAP) 13.7 10.0-20.0 [facility]2016-07-17 10:37:00 Test Item Value Reference Range Interpretation Comments Glucose Lvl (test code = Glucose Lvl) 98 70-99 [facility]2016-07-17 10:37:00 Test Item Value Reference Range Interpretation Comments Creatinine Lvl (test code = Creatinine 0.46 0.50-1.40 Lvl) [facility]2016-07-17 10:37:00 Test Item Value Reference Range Interpretation Comments Sodium Lvl (test code = Sodium Lvl) 148 135-145 [facility]2016-07-17 10:37:00 Test Item Value Reference Range Interpretation Comments Potassium Lvl (test code = Potassium 2.7 3.5-5.1 Lvl) [facility]2016-07-17 10:37:00 Test Item Value Reference Range Interpretation Comments Chloride Lvl (test code = Chloride Lvl) 115 95-109 [facility]2016-07-17 10:37:00 Test Item Value Reference Range Interpretation Comments BUN (test code = BUN) 8 7-22 [facility]2016-07-17 10:37:00 Test Item Value Reference Range Interpretation Comments Phosphorus (test code = Phosphorus) 2.4 2.5-4.5 [facility] PasoGiiuotoROJAIYRQJZ8822-30-41 10:37:00 Test Item Value Reference Range Interpretation Comments Segs (test code = Segs) 79.4 45.0-75.0 [facility] PasoGhpflwkERQOXGMGOS4288-51-34 10:37:00 Test Item Value Reference Range Interpretation Comments Eosinophils (test code = 0.2 See_Comment [A utomated message] The Eosinophils) system which ge nerated this result tra nsmitted reference range : <=4.0. The reference r lily was not used to int erpret this result as normal/abnormal . [facility] PasoDykbpcgFOPFFTXGGS9496-65-63 10:37:00 Test Item Value Reference Range Interpretation Comments Basophils (test code = 0.1 See_Comment [Aut omated message] The Basophils) system which ge nerated this result tra nsmitted reference range : <=1.0. The reference r lily was not used to int erpret this result as normal/abnormal . [facility] PasoGzummtcNSZPQMVBRD1136-61-18 10:37:00 Test Item Value Reference Range Interpretation Comments Lymphocytes (test code = Lymphocytes) 12.0 20.0-40.0 [facility] PasoYekwrghWMFKNLMFVJ6280-71-30 10:37:00 Test Item Value Reference Range Interpretation Comments Lymphocytes # (test code = Lymphocytes 1.3 1.0-5.5 #) [facility] PasoRwylafeTWCCPNGFMV8958-04-67 10:37:00 Test Item Value Reference Range Interpretation Comments Segs-Bands # (test code = Segs-Bands #) 8.6 1.5-8.1 [facility] PasoDdpbksiBMIZMQLVOO8008-55-10 10:37:00 Test Item Value Reference Range Interpretation Comments Monocytes (test code = Monocytes) 8.3 2.0-12.0 [facility]WbtjwtrBIFWVBPYOQ9355-78-79 10:37:00 Test Item Value Reference Range Interpretation Comments Monocytes # (test code 0.9 See_Comment [Aut omated message] The = Monocytes #) system which generated this result tra nsmitted reference range : <=0.8. The reference r lily was not used to int erpret this result as normal/abnormal . [facility]XbvmqvwELIADHEIPB1924-04-20 10:37:00 Test Item Value Reference Range Interpretation Comments RBC (test code = RBC) 3.98 4.20-5.40 [facility] PasoVurllsvOQXCUUUDBG1839-64-64 10:37:00 Test Item Value Reference Range Interpretation Comments Hct (test code = Hct) 35.5 36.0-48.0 [facility] PasoEjixvdtINFNXULYAD2856-27-15 10:37:00 Test Item Value Reference Range Interpretation Comments Hgb (test code = Hgb) 11.9 12.0-16.0 [facility] PasoQhpfdmmVVYTMKEYPB3324-43-74 10:37:00 Test Item Value Reference Range Interpretation Comments RDW (test code = RDW) 13.4 11.5-14.5 [facility] PasoXcnntccFZYBWEAQEB0237-14-93 10:37:00 Test Item Value Reference Range Interpretation Comments WBC (test code = WBC) 10.8 3.7-10.4 [facility] PasoLqzgpgsOASOVPEAJY2070-36-87 10:37:00 Test Item Value Reference Range Interpretation Comments Platelet (test code = Platelet) 166 133-450 [facility] PasoNzncsqrHXQDQTBQGM0039-22-47 10:37:00 Test Item Value Reference Range Interpretation Comments MCHC (test code = MCHC) 33.6 32.0-36.0 [facility] PasoNmdyefvGBXUXHXYZX9807-97-06 10:37:00 Test Item Value Reference Range Interpretation Comments MCH (test code = MCH) 30.0 pg 27.0-31.0 [facility] PasoMyfipwwYGOKLJXPHF3504-08-91 10:37:00 Test Item Value Reference Range Interpretation Comments MCV (test code = MCV) 89.3 80.0-98.0 [facility] PasoPccnfdlBYXSGICHCB0754-45-68 10:37:00 Test Item Value Reference Range Interpretation Comments MPV (test code = MPV) 11.3 7.4-10.4 [facility]2016-07-17 10:37:00 Test Item Value Reference Range Interpretation Comments Magnesium Lvl (test code = Magnesium 1.2 1.8-2.4 Lvl) [facility]2016-07-17 10:37:00 Test Item Value Reference Range Interpretation Comments eGFR (test code = eGFR) 107 [facility]2016-07-17 10:37:00 Test Item Value Reference Range Interpretation Comments Bili Total (test code = Bili Total) 0.6 0.2-1.3 [facility]2016-07-17 10:37:00 Test Item Value Reference Range Interpretation Comments Alk Phos (test code = Alk Phos) 49 39-136 [facility]2016-07-17 10:37:00 Test Item Value Reference Range Interpretation Comments ALANINE AMINOTRANSFERASE 18 See_Comment [A utomated message] (test code = ALANINE The sys tem which AMINOTRANSFERASE) generated this result transmitted ref erence range: <=65. Th e reference range was not used to int erpret this result as normal/abnormal . [facility]2016-07-17 10:37:00 Test Item Value Reference Range Interpretation Comments ASPARTATE TRANSAMINASE 15 See_Comment [Aut omated message] (test code = ASPARTATE The s ystem which TRANSAMINASE) generated this result transmitted ref erence range: <=37. Th e reference range was not used to interpr et this result as normal/abnormal . [facility]2016-07-17 10:37:00 Test Item Value Reference Range Interpretation Comments Total Protein (test code = Total 4.9 6.4-8.4 Protein) [facility]2016-07-17 10:37:00 Test Item Value Reference Range Interpretation Comments Albumin Lvl (test code = Albumin Lvl) 2.2 3.5-5.0 [facility]2016-07-17 10:37:00 Test Item Value Reference Range Interpretation Comments A/G Ratio (test code = A/G Ratio) 0.8 0.7-1.6 [facility]2016-07-17 10:37:00 Test Item Value Reference Range Interpretation Comments Globulin (test code = Globulin) 2.7 2.0-4.0 [facility]2016-07-17 10:37:00 Test Item Value Reference Range Interpretation Comments Calcium Lvl (test code = Calcium Lvl) 6.4 8.5-10.5 [facility]2016-07-17 10:37:00 Test Item Value Reference Range Interpretation Comments B/C Ratio (test code = B/C Ratio) 17 6-25 [facility]2016-07-17 10:37:00 Test Item Value Reference Range Interpretation Comments CO2 (test code = CO2) 22 24-32 [facility]2016-07-17 10:37:00 Test Item Value Reference Range Interpretation Comments AGAP (test code = AGAP) 13.7 10.0-20.0 [facility]2016-07-17 10:37:00 Test Item Value Reference Range Interpretation Comments Glucose Lvl (test code = Glucose Lvl) 98 70-99 [facility]2016-07-17 10:37:00 Test Item Value Reference Range Interpretation Comments Creatinine Lvl (test code = Creatinine 0.46 0.50-1.40 Lvl) [facility]2016-07-17 10:37:00 Test Item Value Reference Range Interpretation Comments Sodium Lvl (test code = Sodium Lvl) 148 135-145 [facility]2016-07-17 10:37:00 Test Item Value Reference Range Interpretation Comments Potassium Lvl (test code = Potassium 2.7 3.5-5.1 Lvl) [facility]2016-07-17 10:37:00 Test Item Value Reference Range Interpretation Comments Chloride Lvl (test code = Chloride Lvl) 115 95-109 [facility]2016-07-17 10:37:00 Test Item Value Reference Range Interpretation Comments BUN (test code = BUN) 8 7-22 [facility]2016-07-17 10:37:00 Test Item Value Reference Range Interpretation Comments Phosphorus (test code = Phosphorus) 2.4 2.5-4.5 [facility] PasoUglhgwmUPTUPEHTDU8376-68-94 10:37:00 Test Item Value Reference Range Interpretation Comments Segs (test code = Segs) 79.4 45.0-75.0 [facility] PasoEfvjxkuKJGXLGYXKG6000-82-21 10:37:00 Test Item Value Reference Range Interpretation Comments Eosinophils (test code = 0.2 See_Comment [A utomated message] The Eosinophils) system which ge nerated this result tra nsmitted reference range : <=4.0. The reference r lily was not used to int erpret this result as normal/abnormal . [facility] PasoZykbvvoJVANHMLJXD7031-36-98 10:37:00 Test Item Value Reference Range Interpretation Comments Basophils (test code = 0.1 See_Comment [Aut omated message] The Basophils) system which ge nerated this result tra nsmitted reference range : <=1.0. The reference r lily was not used to int erpret this result as normal/abnormal . [facility] PasoJlwbwbdQYLPVGWYOZ2229-87-98 10:37:00 Test Item Value Reference Range Interpretation Comments Lymphocytes (test code = Lymphocytes) 12.0 20.0-40.0 [facility] PasoQwyylyhHUAMMMGJHF6421-61-11 10:37:00 Test Item Value Reference Range Interpretation Comments Lymphocytes # (test code = Lymphocytes 1.3 1.0-5.5 #) [facility] PasoFwutmafJLFNTSOOPS3287-49-85 10:37:00 Test Item Value Reference Range Interpretation Comments Segs-Bands # (test code = Segs-Bands #) 8.6 1.5-8.1 [facility] PasoLgwrnxiNYWVPYAPAH2393-58-04 10:37:00 Test Item Value Reference Range Interpretation Comments Monocytes (test code = Monocytes) 8.3 2.0-12.0 [facility] PasoLpggfqzHARIVFUFPL1299-40-06 10:37:00 Test Item Value Reference Range Interpretation Comments Monocytes # (test code 0.9 See_Comment [Aut omated message] The = Monocytes #) system which generated this result tra nsmitted reference range : <=0.8. The reference r lily was not used to int erpret this result as normal/abnormal . [facility] PasoOfwyopyIXOMQTGZDW7956-77-53 10:37:00 Test Item Value Reference Range Interpretation Comments RBC (test code = RBC) 3.98 4.20-5.40 [facility] PasoAmsiupoYFKPSPNGVR4804-50-64 10:37:00 Test Item Value Reference Range Interpretation Comments Hct (test code = Hct) 35.5 36.0-48.0 [facility] PasoHwmtcvkUBJVAKWUDA6577-20-74 10:37:00 Test Item Value Reference Range Interpretation Comments Hgb (test code = Hgb) 11.9 12.0-16.0 [facility] PasoItocadnTDTYGCQIBD2424-49-77 10:37:00 Test Item Value Reference Range Interpretation Comments RDW (test code = RDW) 13.4 11.5-14.5 [facility] PasoWuqdzvdNLESJOUHIF7615-34-30 10:37:00 Test Item Value Reference Range Interpretation Comments WBC (test code = WBC) 10.8 3.7-10.4 [facility] PasoVgbxvqbXMLLSSTXWM7251-25-62 10:37:00 Test Item Value Reference Range Interpretation Comments Platelet (test code = Platelet) 166 133-450 [facility] PasoMsejohzSBHLWENTUD6015-36-00 10:37:00 Test Item Value Reference Range Interpretation Comments MCHC (test code = MCHC) 33.6 32.0-36.0 [facility]NblvutnNBBTCPGFWN2443-64-63 10:37:00 Test Item Value Reference Range Interpretation Comments MCH (test code = MCH) 30.0 pg 27.0-31.0 [facility] PasoTnksgzyMMUUASXVSH1363-36-69 10:37:00 Test Item Value Reference Range Interpretation Comments MCV (test code = MCV) 89.3 80.0-98.0 [facility] PasoMandkebXKHESEBLPB6258-33-46 10:37:00 Test Item Value Reference Range Interpretation Comments MPV (test code = MPV) 11.3 7.4-10.4 [facility]2016-07-17 10:37:00 Test Item Value Reference Range Interpretation Comments Magnesium Lvl (test code = Magnesium 1.2 1.8-2.4 Lvl) [facility]2016-07-17 10:37:00 Test Item Value Reference Range Interpretation Comments eGFR (test code = eGFR) 107 [facility]2016-07-17 10:37:00 Test Item Value Reference Range Interpretation Comments Bili Total (test code = Bili Total) 0.6 0.2-1.3 [facility]2016-07-17 10:37:00 Test Item Value Reference Range Interpretation Comments Alk Phos (test code = Alk Phos) 49 39-136 [facility]2016-07-17 10:37:00 Test Item Value Reference Range Interpretation Comments ALANINE AMINOTRANSFERASE 18 See_Comment [A utomated message] (test code = ALANINE The sys tem which AMINOTRANSFERASE) generated this result transmitted ref erence range: <=65. Th e reference range was not used to int erpret this result as normal/abnormal . [facility]2016-07-17 10:37:00 Test Item Value Reference Range Interpretation Comments ASPARTATE TRANSAMINASE 15 See_Comment [Aut omated message] (test code = ASPARTATE The s ystem which TRANSAMINASE) generated this result transmitted ref erence range: <=37. Th e reference range was not used to interpr et this result as normal/abnormal . [facility]2016-07-17 10:37:00 Test Item Value Reference Range Interpretation Comments Total Protein (test code = Total 4.9 6.4-8.4 Protein) [facility]2016-07-17 10:37:00 Test Item Value Reference Range Interpretation Comments Albumin Lvl (test code = Albumin Lvl) 2.2 3.5-5.0 [facility]2016-07-17 10:37:00 Test Item Value Reference Range Interpretation Comments A/G Ratio (test code = A/G Ratio) 0.8 0.7-1.6 [place] 523386-07-17 10:37:00 Test Item Value Reference Range Interpretation Comments Globulin (test code = Globulin) 2.7 2.0-4.0 [facility]2016-07-17 10:37:00 Test Item Value Reference Range Interpretation Comments Calcium Lvl (test code = Calcium Lvl) 6.4 8.5-10.5 [facility]2016-07-17 10:37:00 Test Item Value Reference Range Interpretation Comments B/C Ratio (test code = B/C Ratio) 17 6-25 [facility]2016-07-17 10:37:00 Test Item Value Reference Range Interpretation Comments CO2 (test code = CO2) 22 24-32 [facility]2016-07-17 10:37:00 Test Item Value Reference Range Interpretation Comments AGAP (test code = AGAP) 13.7 10.0-20.0 [facility]2016-07-17 10:37:00 Test Item Value Reference Range Interpretation Comments Glucose Lvl (test code = Glucose Lvl) 98 70-99 [facility]2016-07-17 10:37:00 Test Item Value Reference Range Interpretation Comments Creatinine Lvl (test code = Creatinine 0.46 0.50-1.40 Lvl) [facility]2016-07-17 10:37:00 Test Item Value Reference Range Interpretation Comments Sodium Lvl (test code = Sodium Lvl) 148 135-145 [facility]2016-07-17 10:37:00 Test Item Value Reference Range Interpretation Comments Potassium Lvl (test code = Potassium 2.7 3.5-5.1 Lvl) [facility]2016-07-17 10:37:00 Test Item Value Reference Range Interpretation Comments Chloride Lvl (test code = Chloride Lvl) 115 95-109 [facility]2016-07-17 10:37:00 Test Item Value Reference Range Interpretation Comments BUN (test code = BUN) 8 -22 [facility]2016-07-17 10:37:00 Test Item Value Reference Range Interpretation Comments Phosphorus (test code = Phosphorus) 2.4 2.5-4.5 [facility] PasoDfxbznxYAYCPKEBSE8847-59-84 10:37:00 Test Item Value Reference Range Interpretation Comments Segs (test code = Segs) 79.4 45.0-75.0 [facility] PasoXtyckhaJGGXQHGTYD6811-52-41 10:37:00 Test Item Value Reference Range Interpretation Comments Eosinophils (test code = 0.2 See_Comment [A utomated message] The Eosinophils) system which ge nerated this result tra nsmitted reference range : <=4.0. The reference r lily was not used to int erpret this result as normal/abnormal . [facility] PasoVwhcikdIFDGYNAVYP6772-02-13 10:37:00 Test Item Value Reference Range Interpretation Comments Basophils (test code = 0.1 See_Comment [Aut omated message] The Basophils) system which ge nerated this result tra nsmitted reference range : <=1.0. The reference r lily was not used to int erpret this result as normal/abnormal . [facility] PasoShiwmpsUAMWCYXEDR7703-66-11 10:37:00 Test Item Value Reference Range Interpretation Comments Lymphocytes (test code = Lymphocytes) 12.0 20.0-40.0 [facility] PasoNhcddrdAURCMOKPDK2013-83-37 10:37:00 Test Item Value Reference Range Interpretation Comments Lymphocytes # (test code = Lymphocytes 1.3 1.0-5.5 #) [facility] PasoXgfqkzuATZHQSXLQF2502-27-73 10:37:00 Test Item Value Reference Range Interpretation Comments Segs-Bands # (test code = Segs-Bands #) 8.6 1.5-8.1 [facility] PasoQkhwhsqWKJRTTSMAS9418-32-73 10:37:00 Test Item Value Reference Range Interpretation Comments Monocytes (test code = Monocytes) 8.3 2.0-12.0 [facility] PasoNiuqpuwEHSUKFOQIP5377-46-63 10:37:00 Test Item Value Reference Range Interpretation Comments Monocytes # (test code 0.9 See_Comment [Aut omated message] The = Monocytes #) system which generated this result tra nsmitted reference range : <=0.8. The reference r lily was not used to int erpret this result as normal/abnormal . [facility] PasoLajhkkuVSVZUHVMLA9011-53-69 10:37:00 Test Item Value Reference Range Interpretation Comments RBC (test code = RBC) 3.98 4.20-5.40 [facility] PasoQmpnpntINOTHPSWFZ9508-42-27 10:37:00 Test Item Value Reference Range Interpretation Comments Hct (test code = Hct) 35.5 36.0-48.0 [facility] PasoOonxghvYYRIVRQJJJ8411-33-44 10:37:00 Test Item Value Reference Range Interpretation Comments Hgb (test code = Hgb) 11.9 12.0-16.0 [facility] PasoDujhcjwTLSPPAYWIV8855-64-90 10:37:00 Test Item Value Reference Range Interpretation Comments RDW (test code = RDW) 13.4 11.5-14.5 [facility] PasoHyyfkjgMEUAFCXUIA3025-05-71 10:37:00 Test Item Value Reference Range Interpretation Comments WBC (test code = WBC) 10.8 3.7-10.4 [facility] PasoVbvcjktCXPGTBYADU0130-53-48 10:37:00 Test Item Value Reference Range Interpretation Comments Platelet (test code = Platelet) 166 133-450 [facility] PasoLjjgjtuTHUCPJEKVG9039-42-86 10:37:00 Test Item Value Reference Range Interpretation Comments MCHC (test code = MCHC) 33.6 32.0-36.0 [facility] PasoEptnwoqNMGCZTJHJC0485-78-47 10:37:00 Test Item Value Reference Range Interpretation Comments MCH (test code = MCH) 30.0 pg 27.0-31.0 [facility] PasoNxvyiboRXPVCHQHSC5810-55-12 10:37:00 Test Item Value Reference Range Interpretation Comments MCV (test code = MCV) 89.3 80.0-98.0 [facility] PasoCiswfbbVYRUNWWVUO9833-87-63 10:37:00 Test Item Value Reference Range Interpretation Comments MPV (test code = MPV) 11.3 7.4-10.4 [facility]2016-07-17 10:37:00 Test Item Value Reference Range Interpretation Comments Magnesium Lvl (test code = Magnesium 1.2 1.8-2.4 Lvl) [facility]2016-07-17 10:37:00 Test Item Value Reference Range Interpretation Comments eGFR (test code = eGFR) 107 [facility]2016-07-17 10:37:00 Test Item Value Reference Range Interpretation Comments Bili Total (test code = Bili Total) 0.6 0.2-1.3 [facility]2016-07-17 10:37:00 Test Item Value Reference Range Interpretation Comments Alk Phos (test code = Alk Phos) 49 39-136 [facility]2016-07-17 10:37:00 Test Item Value Reference Range Interpretation Comments ALANINE AMINOTRANSFERASE 18 See_Comment [A utomated message] (test code = ALANINE The sys tem which AMINOTRANSFERASE) generated this result transmitted ref erence range: <=65. Th e reference range was not used to int erpret this result as normal/abnormal . [facility]2016-07-17 10:37:00 Test Item Value Reference Range Interpretation Comments ASPARTATE TRANSAMINASE 15 See_Comment [Aut omated message] (test code = ASPARTATE The s ystem which TRANSAMINASE) generated this result transmitted ref erence range: <=37. Th e reference range was not used to interpr et this result as normal/abnormal . [facility]2016-07-17 10:37:00 Test Item Value Reference Range Interpretation Comments Total Protein (test code = Total 4.9 6.4-8.4 Protein) [facility]2016-07-17 10:37:00 Test Item Value Reference Range Interpretation Comments Albumin Lvl (test code = Albumin Lvl) 2.2 3.5-5.0 [facility]2016-07-17 10:37:00 Test Item Value Reference Range Interpretation Comments A/G Ratio (test code = A/G Ratio) 0.8 0.7-1.6 [facility]2016-07-17 10:37:00 Test Item Value Reference Range Interpretation Comments Globulin (test code = Globulin) 2.7 2.0-4.0 [facility]2016-07-17 10:37:00 Test Item Value Reference Range Interpretation Comments Calcium Lvl (test code = Calcium Lvl) 6.4 8.5-10.5 [facility]2016-07-17 10:37:00 Test Item Value Reference Range Interpretation Comments B/C Ratio (test code = B/C Ratio) 17 6-25 [facility]2016-07-17 10:37:00 Test Item Value Reference Range Interpretation Comments CO2 (test code = CO2) 22 24-32 [facility]2016-07-17 10:37:00 Test Item Value Reference Range Interpretation Comments AGAP (test code = AGAP) 13.7 10.0-20.0 [facility]2016-07-17 10:37:00 Test Item Value Reference Range Interpretation Comments Glucose Lvl (test code = Glucose Lvl) 98 70-99 [facility]2016-07-17 10:37:00 Test Item Value Reference Range Interpretation Comments Creatinine Lvl (test code = Creatinine 0.46 0.50-1.40 Lvl) [facility]2016-07-17 10:37:00 Test Item Value Reference Range Interpretation Comments Sodium Lvl (test code = Sodium Lvl) 148 135-145 [facility]2016-07-17 10:37:00 Test Item Value Reference Range Interpretation Comments Potassium Lvl (test code = Potassium 2.7 3.5-5.1 Lvl) [facility]2016-07-17 10:37:00 Test Item Value Reference Range Interpretation Comments Chloride Lvl (test code = Chloride Lvl) 115 95-109 [facility]2016-07-17 10:37:00 Test Item Value Reference Range Interpretation Comments BUN (test code = BUN) 8 7-22 [facility]2016-07-17 10:37:00 Test Item Value Reference Range Interpretation Comments Phosphorus (test code = Phosphorus) 2.4 2.5-4.5 [facility] PasoZkvgvjiVGDOMNXQYD4600-79-78 10:37:00 Test Item Value Reference Range Interpretation Comments Segs (test code = Segs) 79.4 45.0-75.0 [facility] PasoMhgkeopFFLITIOSOD6010-16-53 10:37:00 Test Item Value Reference Range Interpretation Comments Eosinophils (test code = 0.2 See_Comment [A utomated message] The Eosinophils) system which nerated this result tra nsmitted reference range : <=4.0. The reference r lily was not used to int erpret this result as normal/abnormal . [facility] PasoPanbvysAIEQJTXEKP4229-73-62 10:37:00 Test Item Value Reference Range Interpretation Comments Basophils (test code = 0.1 See_Comment [Aut omated message] The Basophils) system which ge nerated this result tra nsmitted reference range : <=1.0. The reference r lily was not used to int erpret this result as normal/abnormal . [facility] PasoTacwfsaOTQTNDSDAV2685-22-88 10:37:00 Test Item Value Reference Range Interpretation Comments Lymphocytes (test code = Lymphocytes) 12.0 20.0-40.0 [facility] PasoJjhaixzWKZIMBTSEN5774-59-47 10:37:00 Test Item Value Reference Range Interpretation Comments Lymphocytes # (test code = Lymphocytes 1.3 1.0-5.5 #) [facility] PasoLskitmwNKSJAFDZOF1688-81-81 10:37:00 Test Item Value Reference Range Interpretation Comments Segs-Bands # (test code = Segs-Bands #) 8.6 1.5-8.1 [facility] PasoAsgctllGGLKCBVIKH4050-35-34 10:37:00 Test Item Value Reference Range Interpretation Comments Monocytes (test code = Monocytes) 8.3 2.0-12.0 [facility] PasoEehfryhPOPEBYYTVL1644-81-50 10:37:00 Test Item Value Reference Range Interpretation Comments Monocytes # (test code 0.9 See_Comment [Aut omated message] The = Monocytes #) system which generated this result tra nsmitted reference range : <=0.8. The reference r lily was not used to int erpret this result as normal/abnormal . [facility] PasoKnqnzeqCLOTJFEWBX9599-33-71 10:37:00 Test Item Value Reference Range Interpretation Comments RBC (test code = RBC) 3.98 4.20-5.40 [facility] PasoVsqglovRXZXHMRJLS5871-13-69 10:37:00 Test Item Value Reference Range Interpretation Comments Hct (test code = Hct) 35.5 36.0-48.0 [facility] PasoRubdaryQPESMKRHBO1706-00-28 10:37:00 Test Item Value Reference Range Interpretation Comments Hgb (test code = Hgb) 11.9 12.0-16.0 [facility] PasoLixvbwgKCWGTHVMLR0788-67-41 10:37:00 Test Item Value Reference Range Interpretation Comments RDW (test code = RDW) 13.4 11.5-14.5 [facility] PasoFnlolecRJHNANPEFM5084-20-98 10:37:00 Test Item Value Reference Range Interpretation Comments WBC (test code = WBC) 10.8 3.7-10.4 [facility] PasoEevgcolYKCVEJKSJM5255-64-46 10:37:00 Test Item Value Reference Range Interpretation Comments Platelet (test code = Platelet) 166 133-450 [facility] PasoEtecnwdTAIDWEHDIO1340-87-28 10:37:00 Test Item Value Reference Range Interpretation Comments MCHC (test code = MCHC) 33.6 32.0-36.0 [facility] PasoQnhnhirOWKWTTUJGA4531-47-18 10:37:00 Test Item Value Reference Range Interpretation Comments MCH (test code = MCH) 30.0 pg 27.0-31.0 [facility] PasoDjoquhmVKRKQFHUOH1002-82-68 10:37:00 Test Item Value Reference Range Interpretation Comments MCV (test code = MCV) 89.3 80.0-98.0 [facility]TvlbmspJDJHLZKCDV9415-01-[facility] 10:37:00 Test Item Value Reference Range Interpretation Comments MPV (test code = MPV) 11.3 7.4-10.4 [facility]2016-07-17 10:37:00 Test Item Value Reference Range Interpretation Comments Magnesium Lvl (test code = Magnesium 1.2 1.8-2.4 Lvl) [facility]2016-07-17 10:37:00 Test Item Value Reference Range Interpretation Comments eGFR (test code = eGFR) 107 [facility]2016-07-17 10:37:00 Test Item Value Reference Range Interpretation Comments Bili Total (test code = Bili Total) 0.6 0.2-1.3 [facility]2016-07-17 10:37:00 Test Item Value Reference Range Interpretation Comments Alk Phos (test code = Alk Phos) 49 39-136 [facility]2016-07-17 10:37:00 Test Item Value Reference Range Interpretation Comments ALANINE AMINOTRANSFERASE 18 See_Comment [A utomated message] (test code = ALANINE The sys tem which AMINOTRANSFERASE) generated this result transmitted ref erence range: <=65. Th e reference range was not used to int erpret this result as normal/abnormal . [facility]2016-07-17 10:37:00 Test Item Value Reference Range Interpretation Comments ASPARTATE TRANSAMINASE 15 See_Comment [Aut omated message] (test code = ASPARTATE The s ystem which TRANSAMINASE) generated this result transmitted ref erence range: <=37. Th e reference range was not used to interpr et this result as normal/abnormal . [facility]2016-07-17 10:37:00 Test Item Value Reference Range Interpretation Comments Total Protein (test code = Total 4.9 6.4-8.4 Protein) [facility]2016-07-17 10:37:00 Test Item Value Reference Range Interpretation Comments Albumin Lvl (test code = Albumin Lvl) 2.2 3.5-5.0 [facility]2016-07-17 10:37:00 Test Item Value Reference Range Interpretation Comments A/G Ratio (test code = A/G Ratio) 0.8 0.7-1.6 [facility]2016-07-17 10:37:00 Test Item Value Reference Range Interpretation Comments Globulin (test code = Globulin) 2.7 2.0-4.0 [facility]2016-07-17 10:37:00 Test Item Value Reference Range Interpretation Comments Calcium Lvl (test code = Calcium Lvl) 6.4 8.5-10.5 [facility]2016-07-17 10:37:00 Test Item Value Reference Range Interpretation Comments B/C Ratio (test code = B/C Ratio) 17 - [facility]2016-07-17 10:37:00 Test Item Value Reference Range Interpretation Comments CO2 (test code = CO2) - [facility]2016-07-17 10:37:00 Test Item Value Reference Range Interpretation Comments AGAP (test code = AGAP) 13.7 10.0-20.0 [facility]2016-07-17 10:37:00 Test Item Value Reference Range Interpretation Comments Glucose Lvl (test code = Glucose Lvl) 98 70-99 [facility]2016-07-17 10:37:00 Test Item Value Reference Range Interpretation Comments Creatinine Lvl (test code = Creatinine 0.46 0.50-1.40 Lvl) [facility]2016-07-17 10:37:00 Test Item Value Reference Range Interpretation Comments Sodium Lvl (test code = Sodium Lvl) 148 135-145 [facility]2016-07-17 10:37:00 Test Item Value Reference Range Interpretation Comments Potassium Lvl (test code = Potassium 2.7 3.5-5.1 Lvl) [facility]2016-07-17 10:37:00 Test Item Value Reference Range Interpretation Comments Chloride Lvl (test code = Chloride Lvl) 115 95-109 [facility]2016-07-17 10:37:00 Test Item Value Reference Range Interpretation Comments BUN (test code = BUN) 8 - [facility]2016-07-17 10:37:00 Test Item Value Reference Range Interpretation Comments Phosphorus (test code = Phosphorus) 2.4 2.5-4.5 [facility]Qt[facility]sdDRVLXJSSSP5954-55-32 10:37:00 Test Item Value Reference Range Interpretation Comments Segs (test code = Segs) 79.4 45.0-75.0 [facility] PasoBlwgsopLXUXORVNIP0002-72-06 10:37:00 Test Item Value Reference Range Interpretation Comments Eosinophils (test code = 0.2 See_Comment [A utomated message] The Eosinophils) system which ge nerated this result tra nsmitted reference range : <=4.0. The reference r lily was not used to int erpret this result as normal/abnormal . [facility] PasoPjndoujPUTNBLEPXF4607-86-63 10:37:00 Test Item Value Reference Range Interpretation Comments Basophils (test code = 0.1 See_Comment [Aut omated message] The Basophils) system which ge nerated this result tra nsmitted reference range : <=1.0. The reference r lily was not used to int erpret this result as normal/abnormal . [facility] PasoZkfjrtoBQXGBRXKSG2574-00-88 10:37:00 Test Item Value Reference Range Interpretation Comments Lymphocytes (test code = Lymphocytes) 12.0 20.0-40.0 [facility] PasoFxyfdmtDPIRWSLRPI8108-84-40 10:37:00 Test Item Value Reference Range Interpretation Comments Lymphocytes # (test code = Lymphocytes 1.3 1.0-5.5 #) [facility] PasoAszovjsZGMAYNIPJA3553-61-42 10:37:00 Test Item Value Reference Range Interpretation Comments Segs-Bands # (test code = Segs-Bands #) 8.6 1.5-8.1 [facility] PasoCouoqupTRHXXVRSQK1084-41-40 10:37:00 Test Item Value Reference Range Interpretation Comments Monocytes (test code = Monocytes) 8.3 2.0-12.0 [facility] PasoBokuidvBDIGICLRHZ4656-13-48 10:37:00 Test Item Value Reference Range Interpretation Comments Monocytes # (test code 0.9 See_Comment [Aut omated message] The = Monocytes #) system which generated this result tra nsmitted reference range : <=0.8. The reference r lily was not used to int erpret this result as normal/abnormal . [facility] PasoRcxhqorGHKTBGAPMU0405-79-15 10:37:00 Test Item Value Reference Range Interpretation Comments RBC (test code = RBC) 3.98 4.20-5.40 [facility] PasoMvxywoaYLMKGAUZOR9560-97-52 10:37:00 Test Item Value Reference Range Interpretation Comments Hct (test code = Hct) 35.5 36.0-48.0 [facility] PasoCdvmwduKCCLWTQHCZ5704-27-46 10:37:00 Test Item Value Reference Range Interpretation Comments Hgb (test code = Hgb) 11.9 12.0-16.0 [facility] PasoCyogiulQKXJURSJOD3826-19-67 10:37:00 Test Item Value Reference Range Interpretation Comments RDW (test code = RDW) 13.4 11.5-14.5 [facility] PasoXbtqpztLEQIZEBTAL0402-52-85 10:37:00 Test Item Value Reference Range Interpretation Comments WBC (test code = WBC) 10.8 3.7-10.4 [facility] PasoYmcgzsuDAEPAUXATZ4630-04-77 10:37:00 Test Item Value Reference Range Interpretation Comments Platelet (test code = Platelet) 166 133-450 [facility] PasoZybwwseSCVNMCGUYE8100-25-25 10:37:00 Test Item Value Reference Range Interpretation Comments MCHC (test code = MCHC) 33.6 32.0-36.0 [facility] PasoDxwstgjIINRDARSSB9907-42-13 10:37:00 Test Item Value Reference Range Interpretation Comments MCH (test code = MCH) 30.0 pg 27.0-31.0 [facility] PasoCkxtmrxRUWAGFGSUH6276-95-86 10:37:00 Test Item Value Reference Range Interpretation Comments MCV (test code = MCV) 89.3 80.0-98.0 [facility] PasoYjnazwwGXOFVFUFYK5830-10-29 10:37:00 Test Item Value Reference Range Interpretation Comments MPV (test code = MPV) 11.3 7.4-10.4 [facility]2016-07-17 10:37:00 Test Item Value Reference Range Interpretation Comments Magnesium Lvl (test code = Magnesium 1.2 1.8-2.4 Lvl) [facility]2016-07-17 10:37:00 Test Item Value Reference Range Interpretation Comments eGFR (test code = eGFR) 107 [facility]2016-07-17 10:37:00 Test Item Value Reference Range Interpretation Comments Bili Total (test code = Bili Total) 0.6 0.2-1.3 [facility]2016-07-17 10:37:00 Test Item Value Reference Range Interpretation Comments Alk Phos (test code = Alk Phos) 49 39-136 [facility]2016-07-17 10:37:00 Test Item Value Reference Range Interpretation Comments ALANINE AMINOTRANSFERASE 18 See_Comment [A utomated message] (test code = ALANINE The sys tem which AMINOTRANSFERASE) generated this result transmitted ref erence range: <=65. Th e reference range was not used to int erpret this result as normal/abnormal . [facility]2016-07-17 10:37:00 Test Item Value Reference Range Interpretation Comments ASPARTATE TRANSAMINASE 15 See_Comment [Aut omated message] (test code = ASPARTATE The s ystem which TRANSAMINASE) generated this result transmitted ref erence range: <=37. Th e reference range was not used to interpr et this result as normal/abnormal . [facility]2016-07-17 10:37:00 Test Item Value Reference Range Interpretation Comments Total Protein (test code = Total 4.9 6.4-8.4 Protein) [facility]2016-07-17 10:37:00 Test Item Value Reference Range Interpretation Comments Albumin Lvl (test code = Albumin Lvl) 2.2 3.5-5.0 [facility]2016-07-17 10:37:00 Test Item Value Reference Range Interpretation Comments A/G Ratio (test code = A/G Ratio) 0.8 0.7-1.6 [facility]2016-07-17 10:37:00 Test Item Value Reference Range Interpretation Comments Globulin (test code = Globulin) 2.7 2.0-4.0 [facility]ptownTabSquareNOVANT [facility] MATTHEWS MED[facility] CENTERKNIIK3372-49-75 10:37:00 Test Item Value Reference Range Interpretation Comments Calcium Lvl (test code = Calcium Lvl) 6.4 8.5-10.5 [facility]2016-07-17 10:37:00 Test Item Value Reference Range Interpretation Comments B/C Ratio (test code = B/C Ratio) 17 6-25 [facility]2016-07-17 10:37:00 Test Item Value Reference Range Interpretation Comments CO2 (test code = CO2) 22 24-32 [facility]2016-07-17 10:37:00 Test Item Value Reference Range Interpretation Comments AGAP (test code = AGAP) 13.7 10.0-20.0 [facility]2016-07-17 10:37:00 Test Item Value Reference Range Interpretation Comments Glucose Lvl (test code = Glucose Lvl) 98 70-99 [facility]2016-07-17 10:37:00 Test Item Value Reference Range Interpretation Comments Creatinine Lvl (test code = Creatinine 0.46 0.50-1.40 Lvl) [facility]2016-07-17 10:37:00 Test Item Value Reference Range Interpretation Comments Sodium Lvl (test code = Sodium Lvl) 148 135-145 [facility]2016-07-17 10:37:00 Test Item Value Reference Range Interpretation Comments Potassium Lvl (test code = Potassium 2.7 3.5-5.1 Lvl) [facility]2016-07-17 10:37:00 Test Item Value Reference Range Interpretation Comments Chloride Lvl (test code = Chloride Lvl) 115 95-109 [facility]2016-07-17 10:37:00 Test Item Value Reference Range Interpretation Comments BUN (test code = BUN) 8 7-22 [facility]2016-07-17 10:37:00 Test Item Value Reference Range Interpretation Comments Phosphorus (test code = Phosphorus) 2.4 2.5-4.5 [facility] PasoNyqqkviRZTWQBBGKO8562-80-67 10:37:00 Test Item Value Reference Range Interpretation Comments Segs (test code = Segs) 79.4 45.0-75.0 [facility] PasoVjvnokmPVZBQVKJTI3747-76-11 10:37:00 Test Item Value Reference Range Interpretation Comments Eosinophils (test code = 0.2 See_Comment [A utomated message] The Eosinophils) system which nerated this result tra nsmitted reference range : <=4.0. The reference r lily was not used to int erpret this result as normal/abnormal . [facility] PasoPdxifomNDFRYRSTTX8704-62-80 10:37:00 Test Item Value Reference Range Interpretation Comments Basophils (test code = 0.1 See_Comment [Aut omated message] The Basophils) system which ge nerated this result tra nsmitted reference range : <=1.0. The reference r lily was not used to int erpret this result as normal/abnormal . [facility] PasoLlbhijjABIBIVGQJQ1504-26-38 10:37:00 Test Item Value Reference Range Interpretation Comments Lymphocytes (test code = Lymphocytes) 12.0 20.0-40.0 [facility] PasoCqeiiraXKKJZKXIVO8439-76-40 10:37:00 Test Item Value Reference Range Interpretation Comments Lymphocytes # (test code = Lymphocytes 1.3 1.0-5.5 #) [facility] PasoJfjnmklQDLMHTNGGC0528-87-59 10:37:00 Test Item Value Reference Range Interpretation Comments Segs-Bands # (test code = Segs-Bands #) 8.6 1.5-8.1 [facility] PasoQepyifvGPHLDLRQVX1182-39-41 10:37:00 Test Item Value Reference Range Interpretation Comments Monocytes (test code = Monocytes) 8.3 2.0-12.0 [facility] PasoPkzyopnZAHAQIGJDA6238-27-90 10:37:00 Test Item Value Reference Range Interpretation Comments Monocytes # (test code 0.9 See_Comment [Aut omated message] The = Monocytes #) system which generated this result tra nsmitted reference range : <=0.8. The reference r lily was not used to int erpret this result as normal/abnormal . [facility] PasoLkrlfzoJHFDWJMQGZ8300-38-87 10:37:00 Test Item Value Reference Range Interpretation Comments RBC (test code = RBC) 3.98 4.20-5.40 [facility] PasoVfzenqySUFZPXQNXO6972-64-46 10:37:00 Test Item Value Reference Range Interpretation Comments Hct (test code = Hct) 35.5 36.0-48.0 [facility] PasoXkukkonXSGLDQQNQT5466-45-47 10:37:00 Test Item Value Reference Range Interpretation Comments Hgb (test code = Hgb) 11.9 12.0-16.0 [facility] PasoEiqqusfSCXPGSFUJW0070-49-63 10:37:00 Test Item Value Reference Range Interpretation Comments RDW (test code = RDW) 13.4 11.5-14.5 [facility] PasoDqvstnwGTLUXONBTP4232-70-83 10:37:00 Test Item Value Reference Range Interpretation Comments WBC (test code = WBC) 10.8 3.7-10.4 [facility] PasoJmowknnDHAZNKHSPU6375-47-63 10:37:00 Test Item Value Reference Range Interpretation Comments Platelet (test code = Platelet) 166 133-450 [facility] PasoZhbrmrsANBWXOSKZT3740-57-55 10:37:00 Test Item Value Reference Range Interpretation Comments MCHC (test code = MCHC) 33.6 32.0-36.0 [facility] PasoAfqacwwUKHLGPTKLG0326-54-20 10:37:00 Test Item Value Reference Range Interpretation Comments MCH (test code = MCH) 30.0 pg 27.0-31.0 [facility] PasoPmpxewpUEWCTNYKHJ8920-88-53 10:37:00 Test Item Value Reference Range Interpretation Comments MCV (test code = MCV) 89.3 80.0-98.0 [facility] PasoBtyfumiPPXZVLTVJG8423-10-74 10:37:00 Test Item Value Reference Range Interpretation Comments MPV (test code = MPV) 11.3 7.4-10.4 [facility]2016-07-17 10:37:00 Test Item Value Reference Range Interpretation Comments Magnesium Lvl (test code = Magnesium 1.2 1.8-2.4 Lvl) [facility]2016-07-17 10:37:00 Test Item Value Reference Range Interpretation Comments eGFR (test code = eGFR) 107 [facility]2016-07-17 10:37:00 Test Item Value Reference Range Interpretation Comments Bili Total (test code = Bili Total) 0.6 0.2-1.3 [facility]2016-07-17 10:37:00 Test Item Value Reference Range Interpretation Comments Alk Phos (test code = Alk Phos) 49 39-136 [facility]2016-07-17 10:37:00 Test Item Value Reference Range Interpretation Comments ALANINE AMINOTRANSFERASE 18 See_Comment [A utomated message] (test code = ALANINE The sys tem which AMINOTRANSFERASE) generated this result transmitted ref erence range: <=65. Th e reference range was not used to int erpret this result as normal/abnormal . [facility]2016-07-17 10:37:00 Test Item Value Reference Range Interpretation Comments ASPARTATE TRANSAMINASE 15 See_Comment [Aut omated message] (test code = ASPARTATE The s ystem which TRANSAMINASE) generated this result transmitted ref erence range: <=37. Th e reference range was not used to interpr et this result as normal/abnormal . [facility]2016-07-17 10:37:00 Test Item Value Reference Range Interpretation Comments Total Protein (test code = Total 4.9 6.4-8.4 Protein) [facility]2016-07-17 10:37:00 Test Item Value Reference Range Interpretation Comments Albumin Lvl (test code = Albumin Lvl) 2.2 3.5-5.0 [facility]2016-07-17 10:37:00 Test Item Value Reference Range Interpretation Comments A/G Ratio (test code = A/G Ratio) 0.8 0.7-1.6 [facility]2016-07-17 10:37:00 Test Item Value Reference Range Interpretation Comments Globulin (test code = Globulin) 2.7 2.0-4.0 [facility]2016-07-17 10:37:00 Test Item Value Reference Range Interpretation Comments Calcium Lvl (test code = Calcium Lvl) 6.4 8.5-10.5 [facility]2016-07-17 10:37:00 Test Item Value Reference Range Interpretation Comments B/C Ratio (test code = B/C Ratio) 17 6-25 [facility]2016-07-17 10:37:00 Test Item Value Reference Range Interpretation Comments CO2 (test code = CO2) 22 24-32 [facility]2016-07-17 10:37:00 Test Item Value Reference Range Interpretation Comments AGAP (test code = AGAP) 13.7 10.0-20.0 [facility]2016-07-17 10:37:00 Test Item Value Reference Range Interpretation Comments Glucose Lvl (test code = Glucose Lvl) 98 70-99 [facility]2016-07-17 10:37:00 Test Item Value Reference Range Interpretation Comments Magnesium Lvl (test code = Magnesium 1.2 1.8-2.4 Lvl) [facility]2016-07-17 10:37:00 Test Item Value Reference Range Interpretation Comments Creatinine Lvl (test code = Creatinine 0.46 0.50-1.40 Lvl) [facility]2016-07-17 10:37:00 Test Item Value Reference Range Interpretation Comments eGFR (test code = eGFR) 107 [facility]2016-07-17 10:37:00 Test Item Value Reference Range Interpretation Comments Bili Total (test code = Bili Total) 0.6 0.2-1.3 [facility]2016-07-17 10:37:00 Test Item Value Reference Range Interpretation Comments Alk Phos (test code = Alk Phos) 49 39-136 [facility]2016-07-17 10:37:00 Test Item Value Reference Range Interpretation Comments ALANINE AMINOTRANSFERASE 18 See_Comment [A utomated message] (test code = ALANINE The sys tem which AMINOTRANSFERASE) generated this result transmitted ref erence range: <=65. Th e reference range was not used to int erpret this result as normal/abnormal . [facility]2016-07-17 10:37:00 Test Item Value Reference Range Interpretation Comments ASPARTATE TRANSAMINASE 15 See_Comment [Aut omated message] (test code = ASPARTATE The s ystem which TRANSAMINASE) generated this result transmitted ref erence range: <=37. Th e reference range was not used to interpr et this result as normal/abnormal . [facility]2016-07-17 10:37:00 Test Item Value Reference Range Interpretation Comments Total Protein (test code = Total 4.9 6.4-8.4 Protein) [facility]2016-07-17 10:37:00 Test Item Value Reference Range Interpretation Comments Albumin Lvl (test code = Albumin Lvl) 2.2 3.5-5.0 [facility]2016-07-17 10:37:00 Test Item Value Reference Range Interpretation Comments A/G Ratio (test code = A/G Ratio) 0.8 0.7-1.6 [facility]2016-07-17 10:37:00 Test Item Value Reference Range Interpretation Comments Globulin (test code = Globulin) 2.7 2.0-4.0 [facility]2016-07-17 10:37:00 Test Item Value Reference Range Interpretation Comments Calcium Lvl (test code = Calcium Lvl) 6.4 8.5-10.5 [facility]2016-07-17 10:37:00 Test Item Value Reference Range Interpretation Comments Sodium Lvl (test code = Sodium Lvl) 148 135-145 [facility]2016-07-17 10:37:00 Test Item Value Reference Range Interpretation Comments B/C Ratio (test code = B/C Ratio) 17 6-25 [facility]2016-07-17 10:37:00 Test Item Value Reference Range Interpretation Comments CO2 (test code = CO2) 22 24-32 [facility]2016-07-17 10:37:00 Test Item Value Reference Range Interpretation Comments AGAP (test code = AGAP) 13.7 10.0-20.0 [facility]2016-07-17 10:37:00 Test Item Value Reference Range Interpretation Comments Glucose Lvl (test code = Glucose Lvl) 98 70-99 [facility]2016-07-17 10:37:00 Test Item Value Reference Range Interpretation Comments Creatinine Lvl (test code = Creatinine 0.46 0.50-1.40 Lvl) [facility]2016-07-17 10:37:00 Test Item Value Reference Range Interpretation Comments Sodium Lvl (test code = Sodium Lvl) 148 135-145 [facility]2016-07-17 10:37:00 Test Item Value Reference Range Interpretation Comments Potassium Lvl (test code = Potassium 2.7 3.5-5.1 Lvl) [facility]2016-07-17 10:37:00 Test Item Value Reference Range Interpretation Comments Chloride Lvl (test code = Chloride Lvl) 115 95-109 [facility]2016-07-17 10:37:00 Test Item Value Reference Range Interpretation Comments BUN (test code = BUN) 8 7-22 [facility]2016-07-17 10:37:00 Test Item Value Reference Range Interpretation Comments Phosphorus (test code = Phosphorus) 2.4 2.5-4.5 [facility]2016-07-17 10:37:00 Test Item Value Reference Range Interpretation Comments Potassium Lvl (test code = Potassium 2.7 3.5-5.1 Lvl) [facility]UsgkqvxMEVMUDWSSI3088-81-28 10:37:00 Test Item Value Reference Range Interpretation Comments Segs (test code = Segs) 79.4 45.0-75.0 [facility] PasoNbnpdjzKRNFCMVCPA4431-03-34 10:37:00 Test Item Value Reference Range Interpretation Comments Eosinophils (test code = 0.2 See_Comment [A utomated message] The Eosinophils) system which ge nerated this result tra nsmitted reference range : <=4.0. The reference r lily was not used to int erpret this result as normal/abnormal . [facility] PasoQbofptiJSCYWGKSLR3037-70-83 10:37:00 Test Item Value Reference Range Interpretation Comments Basophils (test code = 0.1 See_Comment [Aut omated message] The Basophils) system which ge nerated this result tra nsmitted reference range : <=1.0. The reference r lily was not used to int erpret this result as normal/abnormal . [facility] PasoTfsztfxCWODQDZHSR4821-60-07 10:37:00 Test Item Value Reference Range Interpretation Comments Lymphocytes (test code = Lymphocytes) 12.0 20.0-40.0 [facility] PasoRmaanqhCMOLBYZLYQ5828-42-97 10:37:00 Test Item Value Reference Range Interpretation Comments Lymphocytes # (test code = Lymphocytes 1.3 1.0-5.5 #) [facility] PasoKnizivxTZSOWTPROQ7878-26-60 10:37:00 Test Item Value Reference Range Interpretation Comments Segs-Bands # (test code = Segs-Bands #) 8.6 1.5-8.1 [facility] PasoIpablzcRUYZJCNKDI5425-53-63 10:37:00 Test Item Value Reference Range Interpretation Comments Monocytes (test code = Monocytes) 8.3 2.0-12.0 [facility] PasoVotvycyGRSDAETKJI1114-78-92 10:37:00 Test Item Value Reference Range Interpretation Comments Monocytes # (test code 0.9 See_Comment [Aut omated message] The = Monocytes #) system which generated this result tra nsmitted reference range : <=0.8. The reference r lily was not used to int erpret this result as normal/abnormal . [facility] [place]FagwapxHTPYPGHGDG3207-84-56 10:37:00 Test Item Value Reference Range Interpretation Comments RBC (test code = RBC) 3.98 4.20-5.40 [facility]EjzkxczTHYJDNDKTF6553-16-25 10:37:00 Test Item Value Reference Range Interpretation Comments Hct (test code = Hct) 35.5 36.0-48.0 [facility]2016-07-17 10:37:00 Test Item Value Reference Range Interpretation Comments Chloride Lvl (test code = Chloride Lvl) 115 95-109 [facility] [place] PasoRhubdwtKIRLIZCSYZ9509-15-54 10:37:00 Test Item Value Reference Range Interpretation Comments Hgb (test code = Hgb) 11.9 12.0-16.0 [facility] [place] PasoVaoqwasGKOVUBMNVC3024-56-55 10:37:00 Test Item Value Reference Range Interpretation Comments RDW (test code = RDW) 13.4 11.5-14.5 [facility] PasoSulhwyuKYDDWZHEAB0729-73-35 10:37:00 Test Item Value Reference Range Interpretation Comments WBC (test code = WBC) 10.8 3.7-10.4 [facility] [place] PasoDklzmzrTZOSIOGRVX9483-81-55 10:37:00 Test Item Value Reference Range Interpretation Comments Platelet (test code = Platelet) 166 133-450 [facility] [place] PasoXaftmrvNVTEEDCKGN3474-17-48 10:37:00 Test Item Value Reference Range Interpretation Comments MCHC (test code = MCHC) 33.6 32.0-36.0 [facility] [place] PasoRbcvbqvYEGKXAJOLS2840-92-54 10:37:00 Test Item Value Reference Range Interpretation Comments MCH (test code = MCH) 30.0 pg 27.0-31.0 [facility] [place] PasoPextjnaDIGWGFLNAY1069-73-52 10:37:00 Test Item Value Reference Range Interpretation Comments MCV (test code = MCV) 89.3 80.0-98.0 [facility] [place] PasoCulumtyHKOEYCUAOU4567-59-54 10:37:00 Test Item Value Reference Range Interpretation Comments MPV (test code = MPV) 11.3 7.4-10.4 [facility] CampusThingMagic IZGTN1095-92-65 10:37:00 Test Item Value Reference Range Interpretation Comments BUN (test code = BUN) 8 7-22 [facility] POGQK5590-20-80 10:37:00 Test Item Value Reference Range Interpretation Comments Phosphorus (test code = Phosphorus) 2.4 2.5-4.5 [facility] [place] PasoAidttbxZKKGJDMPDP7843-74-92 10:37:00 Test Item Value Reference Range Interpretation Comments Segs (test code = Segs) 79.4 45.0-75.0 [facility] [place] PasoAybifzkEBXONMIPDE0741-83-45 10:37:00 Test Item Value Reference Range Interpretation Comments Eosinophils (test code = 0.2 See_Comment [A utomated message] The Eosinophils) system which ge nerated this result tra nsmitted reference range : <=4.0. The reference r lily was not used to int erpret this result as normal/abnormal . [facility] [place] PasoZafjzxjHDZEZCHYUF1117-32-52 10:37:00 Test Item Value Reference Range Interpretation Comments Basophils (test code = 0.1 See_Comment [Aut omated message] The Basophils) system which ge nerated this result tra nsmitted reference range : <=1.0. The reference r lily was not used to int erpret this result as normal/abnormal . [facility] [place] PasoCjugywrUAVTGCYXGA9412-73-77 10:37:00 Test Item Value Reference Range Interpretation Comments Lymphocytes (test code = Lymphocytes) 12.0 20.0-40.0 [facility] [place] PasoRjflcsvKULGXSSQEV8230-07-00 10:37:00 Test Item Value Reference Range Interpretation Comments Lymphocytes # (test code = Lymphocytes 1.3 1.0-5.5 #) [facility] [place] PasoCasyibqELBQQZENDU3126-05-96 10:37:00 Test Item Value Reference Range Interpretation Comments Segs-Bands # (test code = Segs-Bands #) 8.6 1.5-8.1 [facility] [place] PasoGjvrqdpHMNZZPERDE8036-59-42 10:37:00 Test Item Value Reference Range Interpretation Comments Monocytes (test code = Monocytes) 8.3 2.0-12.0 [facility] [place] PasoBmbkdlhMKETPDDPJM2669-75-71 10:37:00 Test Item Value Reference Range Interpretation Comments Monocytes # (test code 0.9 See_Comment [Aut omated message] The = Monocytes #) system which generated this result tra nsmitted reference range : <=0.8. The reference r lily was not used to int erpret this result as normal/abnormal . [facility] [place] PasoRgmvrzkWXFRMMLAKZ3547-31-78 10:37:00 Test Item Value Reference Range Interpretation Comments RBC (test code = RBC) 3.98 4.20-5.40 [facility] [place] PasoFchvkodKFCILUJCLY8514-93-21 10:37:00 Test Item Value Reference Range Interpretation Comments Hct (test code = Hct) 35.5 36.0-48.0 [facility] [place] PasoKzmyyonSTDYGGASIC7120-48-87 10:37:00 Test Item Value Reference Range Interpretation Comments Hgb (test code = Hgb) 11.9 12.0-16.0 [facility] [place] PasoLhympbiOLVSYMUQKE2216-78-39 10:37:00 Test Item Value Reference Range Interpretation Comments RDW (test code = RDW) 13.4 11.5-14.5 [facility] [place] PasoJbtqjsvRMBSAWUJYG4760-60-56 10:37:00 Test Item Value Reference Range Interpretation Comments WBC (test code = WBC) 10.8 3.7-10.4 [facility] [place] PasoRwzreqdLOFXHFAYUQ1856-31-79 10:37:00 Test Item Value Reference Range Interpretation Comments Platelet (test code = Platelet) 166 133-450 [facility] [place] PasoNeagwkpRZUMBWWZDA1396-19-14 10:37:00 Test Item Value Reference Range Interpretation Comments MCHC (test code = MCHC) 33.6 32.0-36.0 [facility] [place] PasoOiopjiyBFTPSRGFWQ5227-01-99 10:37:00 Test Item Value Reference Range Interpretation Comments MCH (test code = MCH) 30.0 pg 27.0-31.0 [facility] [place]IbfsbfmYHTCNCAWGJ6579-06-57 10:37:00 Test Item Value Reference Range Interpretation Comments MCV (test code = MCV) 89.3 80.0-98.0 [facility] [place] PasoKxkfmiwZAMHZSACPV9245-55-37 10:37:00 Test Item Value Reference Range Interpretation Comments MPV (test code = MPV) 11.3 7.4-10.4 [facility]2016-07-17 10:37:00 Test Item Value Reference Range Interpretation Comments Magnesium Lvl (test code = Magnesium 1.2 1.8-2.4 Lvl) [facility]2016-07-17 10:37:00 Test Item Value Reference Range Interpretation Comments eGFR (test code = eGFR) 107 [facility]2016-07-17 10:37:00 Test Item Value Reference Range Interpretation Comments Bili Total (test code = Bili Total) 0.6 0.2-1.3 [facility]2016-07-17 10:37:00 Test Item Value Reference Range Interpretation Comments Alk Phos (test code = Alk Phos) 49 39-136 [facility]2016-07-17 10:37:00 Test Item Value Reference Range Interpretation Comments ALANINE AMINOTRANSFERASE 18 See_Comment [A utomated message] (test code = ALANINE The sys tem which AMINOTRANSFERASE) generated this result transmitted ref erence range: <=65. Th e reference range was not used to int erpret this result as normal/abnormal . [facility]2016-07-17 10:37:00 Test Item Value Reference Range Interpretation Comments ASPARTATE TRANSAMINASE 15 See_Comment [Aut omated message] (test code = ASPARTATE The s ystem which TRANSAMINASE) generated this result transmitted ref erence range: <=37. Th e reference range was not used to interpr et this result as normal/abnormal . [facility]2016-07-17 10:37:00 Test Item Value Reference Range Interpretation Comments Total Protein (test code = Total 4.9 6.4-8.4 Protein) [facility]2016-07-17 10:37:00 Test Item Value Reference Range Interpretation Comments Albumin Lvl (test code = Albumin Lvl) 2.2 3.5-5.0 [facility]2016-07-17 10:37:00 Test Item Value Reference Range Interpretation Comments A/G Ratio (test code = A/G Ratio) 0.8 0.7-1.6 [facility]2016-07-17 10:37:00 Test Item Value Reference Range Interpretation Comments Globulin (test code = Globulin) 2.7 2.0-4.0 [facility]2016-07-17 10:37:00 Test Item Value Reference Range Interpretation Comments Calcium Lvl (test code = Calcium Lvl) 6.4 8.5-10.5 [facility]2016-07-17 10:37:00 Test Item Value Reference Range Interpretation Comments B/C Ratio (test code = B/C Ratio) 17 6-25 [facility]2016-07-17 10:37:00 Test Item Value Reference Range Interpretation Comments CO2 (test code = CO2) 22 24-32 [facility]2016-07-17 10:37:00 Test Item Value Reference Range Interpretation Comments AGAP (test code = AGAP) 13.7 10.0-20.0 [facility]2016-07-17 10:37:00 Test Item Value Reference Range Interpretation Comments Glucose Lvl (test code = Glucose Lvl) 98 70-99 [facility]2016-07-17 10:37:00 Test Item Value Reference Range Interpretation Comments Creatinine Lvl (test code = Creatinine 0.46 0.50-1.40 Lvl) [facility]2016-07-17 10:37:00 Test Item Value Reference Range Interpretation Comments Sodium Lvl (test code = Sodium Lvl) 148 135-145 [facility]2016-07-17 10:37:00 Test Item Value Reference Range Interpretation Comments Potassium Lvl (test code = Potassium 2.7 3.5-5.1 Lvl) [facility]2016-07-17 10:37:00 Test Item Value Reference Range Interpretation Comments Chloride Lvl (test code = Chloride Lvl) 115 95-109 [facility]2016-07-17 10:37:00 Test Item Value Reference Range Interpretation Comments BUN (test code = BUN) 8 7-22 [facility]2016-07-17 10:37:00 Test Item Value Reference Range Interpretation Comments Phosphorus (test code = Phosphorus) 2.4 2.5-4.5 [facility] [place] PasoCwwufrrLCCYWNXVLF4602-43-84 10:37:00 Test Item Value Reference Range Interpretation Comments Segs (test code = Segs) 79.4 45.0-75.0 [facility] [place] PasoHdkuwmvHZZYXUJJVJ1598-92-15 10:37:00 Test Item Value Reference Range Interpretation Comments Eosinophils (test code = 0.2 See_Comment [A utomated message] The Eosinophils) system which ge nerated this result tra nsmitted reference range : <=4.0. The reference r lily was not used to int erpret this result as normal/abnormal . [facility] [place]EpebyjqFVBLERBQRU1742-82-31 10:37:00 Test Item Value Reference Range Interpretation Comments Basophils (test code = 0.1 See_Comment [Aut omated message] The Basophils) system which ge nerated this result tra nsmitted reference range : <=1.0. The reference r lily was not used to int erpret this result as normal/abnormal . [facility] [place] PasoQffrsuoJYTOJOAFOG7731-51-97 10:37:00 Test Item Value Reference Range Interpretation Comments Lymphocytes (test code = Lymphocytes) 12.0 20.0-40.0 [facility] [place] PasoRuaevikTXKMMNINAF0672-72-74 10:37:00 Test Item Value Reference Range Interpretation Comments Lymphocytes # (test code = Lymphocytes 1.3 1.0-5.5 #) [facility] [place] PasoCwbstwuMLLQFGSAQG9639-74-91 10:37:00 Test Item Value Reference Range Interpretation Comments Segs-Bands # (test code = Segs-Bands #) 8.6 1.5-8.1 [facility]2016-07-16 10:11:18 Test Item Value Reference Range Interpretation Comments Lactic Acid WB (test code = Lactic Acid 1.3 0.5-2.2 WB) [facility]BmqlvzvGZFMVPSFCOYP7349-83-66 10:11:18 Test Item Value Reference Range Interpretation Comments AGAP (test code = AGAP) 11.5 10.0-20.0 [facility] HospitalQtscgykXGOKAQAFPNVL0627-93-63 10:11:18 Test Item Value Reference Range Interpretation Comments eGFR (test code = eGFR) 87 [facility] HospitalDvtuuidFLCYCCDXJOZD5642-02-38 10:11:18 Test Item Value Reference Range Interpretation Comments Glucose Lvl (test code = Glucose Lvl) 125 70-99 [facility] HospitalFfijirsOBZGAEEEQJLY7536-70-76 10:11:18 Test Item Value Reference Range Interpretation Comments BUN (test code = BUN) 16 7-22 [facility] HospitalRcyzxeiNGSZHNYKBAPX0449-87-55 10:11:18 Test Item Value Reference Range Interpretation Comments Creatinine Lvl (test code = Creatinine 0.74 0.50-1.40 Lvl) [facility] HospitalWtopvdjIBTKXFLGZJWL0764-44-11 10:11:18 Test Item Value Reference Range Interpretation Comments Potassium Lvl (test code = Potassium 3.5 3.5-5.1 Lvl) [facility] HospitalVamsqjuJZZOBRMYUDKQ8320-56-79 10:11:18 Test Item Value Reference Range Interpretation Comments Chloride Lvl (test code = Chloride Lvl) 104 95-109 [facility] HospitalCdmixxqUFABWAJCWCUJ1092-80-62 10:11:18 Test Item Value Reference Range Interpretation Comments Sodium Lvl (test code = Sodium Lvl) 141 135-145 [facility] HospitalOeiedypTMCLDRJJUZUS6458-66-84 10:11:18 Test Item Value Reference Range Interpretation Comments CO2 (test code = CO2) 29 24-32 [facility] HospitalRwxxxuaDENASFROMFDD6479-78-29 10:11:18 Test Item Value Reference Range Interpretation Comments Calcium Lvl (test code = Calcium Lvl) 9.4 8.5-10.5 [facility] [place] PasoUerqaskNBDLFUCGXB3574-41-16 10:11:18 Test Item Value Reference Range Interpretation Comments Estimated % Lysis Rapid 1.2 See_Comment [Au tomated message] The (test code = Estimated syste m which generated % Lysis Rapid) this result t ransmitted reference range : <=7.5. The reference r lily was not used to int erpret this result as normal/abnormal . [facility] [place] PasoZowtjiaQJGRSTDQLX8070-70-05 10:11:18 Test Item Value Reference Range Interpretation Comments K-time Rapid (test code = K-time 0.8 min 0.6-2.3 Rapid) [facility] [place]MatqfljLWNSGNRZSK4793-89-99 10:11:18 Test Item Value Reference Range Interpretation Comments Split Point Rapid (test code = Split 0.4 min Point Rapid) [facility] [place] PasoVyoeznxJFSFLKKLJE7125-36-51 10:11:18 Test Item Value Reference Range Interpretation Comments ACT (TEG) Rapid (test code = ACT (TEG) 97 s 86-118 Rapid) [facility] [place] PasoLyapgntOZKZZNTXLE0464-22-73 10:11:18 Test Item Value Reference Range Interpretation Comments R-time Rapid (test code = R-time 0.5 min 0.4-0.7 Rapid) [facility] [place] PasoYjgveemGHWDBOOGXF9953-38-34 10:11:18 Test Item Value Reference Range Interpretation Comments G-value Rapid (test code = G-value 12.5 5.0-11.6 Rapid) [facility] [place] PasoSzwbvdwBRUBMWAHVJ5963-44-44 10:11:18 Test Item Value Reference Range Interpretation Comments Max Amplitude Rapid (test code = Max 72 mm 52-71 Amplitude Rapid) [facility] [place]UkfbqehGLDRZZWSBN8289-73-85 10:11:18 Test Item Value Reference Range Interpretation Comments Angle Rapid (test code = Angle 79 degrees 64-80 Rapid) [facility] [place] PasoMfzxugxHTOWSODIUS1760-68-69 10:11:18 Test Item Value Reference Range Interpretation Comments INR (test code = INR) 0.98 0.85-1.17 [facility] [place] PasoGlzagtnQQZJHFYVJW7685-19-82 10:11:18 Test Item Value Reference Range Interpretation Comments PT (test code = PT) 13.3 s 12.0-14.7 [facility] [place] PasoWsnmluxMWXIHAAVTI9168-21-55 10:11:18 Test Item Value Reference Range Interpretation Comments MPV (test code = MPV) 10.4 7.4-10.4 [facility] [place] PasoZdvejtyZGKSQDNQBE3619-80-56 10:11:18 Test Item Value Reference Range Interpretation Comments Platelet (test code = Platelet) 178 133-450 [facility] [place] PasoMdogortAKTRCCBCDT6441-50-74 10:11:18 Test Item Value Reference Range Interpretation Comments RDW (test code = RDW) 13.2 11.5-14.5 [facility] [place] PasoHjttwzdATDUQUTHVA0442-48-07 10:11:18 Test Item Value Reference Range Interpretation Comments MCH (test code = MCH) 30.4 pg 27.0-31.0 [facility] [place] PasoFhxagrhNLZAQPNKXJ7104-81-88 10:11:18 Test Item Value Reference Range Interpretation Comments MCHC (test code = MCHC) 33.7 32.0-36.0 [facility] [place] PasoXziszaxEVQGLNWYTW6489-68-25 10:11:18 Test Item Value Reference Range Interpretation Comments Hgb (test code = Hgb) 12.2 12.0-16.0 [facility] [place] PasoJfkdluePSEFSFOLWA0797-52-79 10:11:18 Test Item Value Reference Range Interpretation Comments MCV (test code = MCV) 90.1 80.0-98.0 [facility] [place] PasoYodgjrpJGQAMZACYG8391-80-44 10:11:18 Test Item Value Reference Range Interpretation Comments Hct (test code = Hct) 36.2 36.0-48.0 [facility] [place] PasoIukgeaeMRPQDBEIZS2764-75-48 10:11:18 Test Item Value Reference Range Interpretation Comments RBC (test code = RBC) 4.02 4.20-5.40 [facility] [place] PasoUvugeqhMAVNVAQAMW3079-18-15 10:11:18 Test Item Value Reference Range Interpretation Comments WBC (test code = WBC) 10.1 3.7-10.4 [facility] [place] PasoApkuocgPLTMFMPILB6305-78-38 10:11:18 Test Item Value Reference Range Interpretation Comments PTT (test code = PTT) 35.5 s 22.9-35.8 [facility] [place] PasoLhtqwtmPCZQNAXIMR2301-34-11 10:11:18 Test Item Value Reference Range Interpretation Comments Eosinophils # (test code 0.2 See_Comment [A utomated message] The = Eosinophils #) system ic h generated this result tra nsmitted reference range : <=0.5. The reference r lily was not used to int erpret this result as normal/abnormal . [facility] [place] PasoOmouipkADFGIYONFZ0089-99-59 10:11:18 Test Item Value Reference Range Interpretation Comments Monocytes (test code = Monocytes) 7.9 2.0-12.0 [facility] [place] PasoOlpixhvRJECPMCSAF1151-43-63 10:11:18 Test Item Value Reference Range Interpretation Comments Eosinophils (test code = 2.5 See_Comment [A utomated message] The Eosinophils) system which ge nerated this result tra nsmitted reference range : <=4.0. The reference r lily was not used to int erpret this result as normal/abnormal . [facility] [place] PasoDnnxhqtZSUDWGGTCR4611-79-08 10:11:18 Test Item Value Reference Range Interpretation Comments Basophils # (test code 0.1 See_Comment [Aut omated message] The = Basophils #) system which generated this result tra nsmitted reference range : <=0.2. The reference r lily was not used to int erpret this result as normal/abnormal . [facility] [place] PasoZltwnzoARUFRRTPTN1459-17-98 10:11:18 Test Item Value Reference Range Interpretation Comments Segs (test code = Segs) 65.1 45.0-75.0 [facility] [place] PasoEriwzkhVHPYEMVOMX3186-91-36 10:11:18 Test Item Value Reference Range Interpretation Comments Lymphocytes (test code = Lymphocytes) 23.7 20.0-40.0 [facility] [place] PasoOitnrdiSRFRFTZCND6072-06-95 10:11:18 Test Item Value Reference Range Interpretation Comments Lymphocytes # (test code = Lymphocytes 2.4 1.0-5.5 #) [facility] [place] PasoJbfhhzbUYPEHBEJIE4165-30-13 10:11:18 Test Item Value Reference Range Interpretation Comments Monocytes # (test code 0.8 See_Comment [Aut omated message] The = Monocytes #) system which generated this result tra nsmitted reference range : <=0.8. The reference r lily was not used to int erpret this result as normal/abnormal . [facility] [place] PasoAegqphpDVNPXYGWFX5585-80-05 10:11:18 Test Item Value Reference Range Interpretation Comments Basophils (test code = 0.8 See_Comment [Aut omated message] The Basophils) system which ge nerated this result tra nsmitted reference range : <=1.0. The reference r lily was not used to int erpret this result as normal/abnormal . [facility] [place] PasoNsjfcidGPSSAUYVNY6578-61-38 10:11:18 Test Item Value Reference Range Interpretation Comments Segs-Bands # (test code = Segs-Bands #) 6.6 1.5-8.1 [facility] NZYLX5116-71-15 10:11:18 Test Item Value Reference Range Interpretation Comments Lactic Acid WB (test code = Lactic Acid 1.3 0.5-2.2 WB) [facility]PyoyklnJXVGXQSMZGNY8175-67-51 10:11:18 Test Item Value Reference Range Interpretation Comments AGAP (test code = AGAP) 11.5 10.0-20.0 [facility] HospitalQlmtrkxAYGQLOFAUIQY4695-00-50 10:11:18 Test Item Value Reference Range Interpretation Comments eGFR (test code = eGFR) 87 [facility] HospitalJkznyluVHSXZSMSCIDB2680-89-42 10:11:18 Test Item Value Reference Range Interpretation Comments Glucose Lvl (test code = Glucose Lvl) 125 70-99 [facility] HospitalDauvpumFKOXHKIBKFWZ2443-97-96 10:11:18 Test Item Value Reference Range Interpretation Comments BUN (test code = BUN) 16 7-22 [facility] HospitalWsncebfPOKIVJOXKZXX9862-78-96 10:11:18 Test Item Value Reference Range Interpretation Comments Creatinine Lvl (test code = Creatinine 0.74 0.50-1.40 Lvl) [facility] HospitalPtgqlxkGEQTPTXXQXNK6440-20-44 10:11:18 Test Item Value Reference Range Interpretation Comments Potassium Lvl (test code = Potassium 3.5 3.5-5.1 Lvl) [facility] HospitalTmohcjzZWZBAAPYWMYI4788-42-66 10:11:18 Test Item Value Reference Range Interpretation Comments Chloride Lvl (test code = Chloride Lvl) 104 95-109 [facility] HospitalWqbvniwJTJRANCKKMSI6600-73-38 10:11:18 Test Item Value Reference Range Interpretation Comments Sodium Lvl (test code = Sodium Lvl) 141 135-145 [facility] HospitalDrxezomYUJUCXSXMNJZ8448-29-66 10:11:18 Test Item Value Reference Range Interpretation Comments CO2 (test code = CO2) 29 24-32 [facility] HospitalSooviejSTNYMQUUKVIO0204-35-45 10:11:18 Test Item Value Reference Range Interpretation Comments Calcium Lvl (test code = Calcium Lvl) 9.4 8.5-10.5 [facility] [place] PasoFridsvlKCXRNQNIOO0406-75-52 10:11:18 Test Item Value Reference Range Interpretation Comments Estimated % Lysis Rapid 1.2 See_Comment [Au tomated message] The (test code = Estimated syste m which generated % Lysis Rapid) this result t ransmitted reference range : <=7.5. The reference r lily was not used to int erpret this result as normal/abnormal . [facility] [place] PasoUktmlqpOFOZJMXLUT1157-28-45 10:11:18 Test Item Value Reference Range Interpretation Comments K-time Rapid (test code = K-time 0.8 min 0.6-2.3 Rapid) [facility] [place] PasoJspmaxfDGFDDGXKVL7566-74-30 10:11:18 Test Item Value Reference Range Interpretation Comments Split Point Rapid (test code = Split 0.4 min Point Rapid) [facility] [place] PasoVelfbyaVCKVSTKVPM5662-36-70 10:11:18 Test Item Value Reference Range Interpretation Comments ACT (TEG) Rapid (test code = ACT (TEG) 97 s 86-118 Rapid) [facility] [place] PasoIaqdagdXOLPZUAYNA5544-34-02 10:11:18 Test Item Value Reference Range Interpretation Comments R-time Rapid (test code = R-time 0.5 min 0.4-0.7 Rapid) [facility] [place] PasoXfaagxtSBVSMXJNWH9991-67-82 10:11:18 Test Item Value Reference Range Interpretation Comments G-value Rapid (test code = G-value 12.5 5.0-11.6 Rapid) [facility] [place] PasoZkxxxqpBBQTIRAWAV6084-85-77 10:11:18 Test Item Value Reference Range Interpretation Comments Max Amplitude Rapid (test code = Max 72 mm 52-71 Amplitude Rapid) [facility] [place] PasoCuxavpeJWVLLPQRBZ6000-37-24 10:11:18 Test Item Value Reference Range Interpretation Comments Angle Rapid (test code = Angle 79 degrees 64-80 Rapid) [facility] [place] PasoNwmbnxcVTHFIIXUDD3634-79-14 10:11:18 Test Item Value Reference Range Interpretation Comments INR (test code = INR) 0.98 0.85-1.17 [facility] [place] PasoOwcbeuqWCBDHUAZKQ3110-96-76 10:11:18 Test Item Value Reference Range Interpretation Comments PT (test code = PT) 13.3 s 12.0-14.7 [facility] [place] PasoEmpjvzfXIDEJLVIVQ5269-45-37 10:11:18 Test Item Value Reference Range Interpretation Comments MPV (test code = MPV) 10.4 7.4-10.4 [facility] PasoBcnfqzvTXXXICBAFA7997-36-73 10:11:18 Test Item Value Reference Range Interpretation Comments Platelet (test code = Platelet) 178 133-450 [facility] PasoLlqgtehEFORVSVKCI1292-51-32 10:11:18 Test Item Value Reference Range Interpretation Comments RDW (test code = RDW) 13.2 11.5-14.5 [facility] [place] PasoUrfpiwoERKGRIHTIG9977-88-19 10:11:18 Test Item Value Reference Range Interpretation Comments MCH (test code = MCH) 30.4 pg 27.0-31.0 [facility] [facility]UrzfhvkOFRXOWRCTU9778-70-75 10:11:18 Test Item Value Reference Range Interpretation Comments MCHC (test code = MCHC) 33.7 32.0-36.0 [facility] [place]MmxmiudUOMMDIBDRZ4701-06-69 10:11:18 Test Item Value Reference Range Interpretation Comments Hgb (test code = Hgb) 12.2 12.0-16.0 [facility] [place]IdrmgoiGXHVHOJVTI7247-76-00 10:11:18 Test Item Value Reference Range Interpretation Comments MCV (test code = MCV) 90.1 80.0-98.0 [facility] PasoYhjlgqaWVEAFIKJLV5843-89-14 10:11:18 Test Item Value Reference Range Interpretation Comments Hct (test code = Hct) 36.2 36.0-48.0 [facility] PasoNubisiwFQHTSJJQQC6694-87-83 10:11:18 Test Item Value Reference Range Interpretation Comments RBC (test code = RBC) 4.02 4.20-5.40 [facility] PasoBxuuplsEAUDUQVGDQ5489-82-86 10:11:18 Test Item Value Reference Range Interpretation Comments WBC (test code = WBC) 10.1 3.7-10.4 [facility] PasoRjelmzaLKTHNOCADJ7011-74-48 10:11:18 Test Item Value Reference Range Interpretation Comments PTT (test code = PTT) 35.5 s 22.9-35.8 [facility] PasoFdbjivsYRUMQCYHNZ7463-38-97 10:11:18 Test Item Value Reference Range Interpretation Comments Eosinophils # (test code 0.2 See_Comment [A utomated message] The = Eosinophils #) system whic h generated this result tra nsmitted reference range : <=0.5. The reference r lily was not used to int erpret this result as normal/abnormal . [facility] PasoCcakkiuKIJRRFSSPB1116-98-69 10:11:18 Test Item Value Reference Range Interpretation Comments Monocytes (test code = Monocytes) 7.9 2.0-12.0 [facility] PasoMoeqevfRBWRLIHWMG8851-94-22 10:11:18 Test Item Value Reference Range Interpretation Comments Eosinophils (test code = 2.5 See_Comment [A utomated message] The Eosinophils) system which ge nerated this result tra nsmitted reference range : <=4.0. The reference r lily was not used to int erpret this result as normal/abnormal . [facility] PasoBuadosmLMQRZQZZOU2387-30-57 10:11:18 Test Item Value Reference Range Interpretation Comments Basophils # (test code 0.1 See_Comment [Aut omated message] The = Basophils #) system which generated this result tra nsmitted reference range : <=0.2. The reference r lily was not used to int erpret this result as normal/abnormal . [facility] PasoZgzorflDGKNNGHXPV3971-45-79 10:11:18 Test Item Value Reference Range Interpretation Comments Segs (test code = Segs) 65.1 45.0-75.0 [facility] PasoSetqnrcDHHIRCTCPB8141-77-44 10:11:18 Test Item Value Reference Range Interpretation Comments Lymphocytes (test code = Lymphocytes) 23.7 20.0-40.0 [facility] PasoBodpkvtGOAXDCZGME6047-12-54 10:11:18 Test Item Value Reference Range Interpretation Comments Lymphocytes # (test code = Lymphocytes 2.4 1.0-5.5 #) [facility] PasoUcuacdhAUZZMRVOVW8264-37-12 10:11:18 Test Item Value Reference Range Interpretation Comments Monocytes # (test code 0.8 See_Comment [Aut omated message] The = Monocytes #) system which generated this result tra nsmitted reference range : <=0.8. The reference r lily was not used to int erpret this result as normal/abnormal . [facility] PasoFfixgjpWRGQCGEOZO6712-38-00 10:11:18 Test Item Value Reference Range Interpretation Comments Basophils (test code = 0.8 See_Comment [Aut omated message] The Basophils) system which ge nerated this result tra nsmitted reference range : <=1.0. The reference r lily was not used to int erpret this result as normal/abnormal . [facility] PasoDrgqdnmILQMKCDZDI9374-55-97 10:11:18 Test Item Value Reference Range Interpretation Comments Segs-Bands # (test code = Segs-Bands #) 6.6 1.5-8.1 [facility]2016-07-16 10:11:18 Test Item Value Reference Range Interpretation Comments Lactic Acid WB (test code = Lactic Acid 1.3 0.5-2.2 WB) [facility]YoltcfhRZDCXRFTWONK6407-48-91 10:11:18 Test Item Value Reference Range Interpretation Comments AGAP (test code = AGAP) 11.5 10.0-20.0 [facility] HospitalOjkesgoTHVODUAJPYQL4097-60-41 10:11:18 Test Item Value Reference Range Interpretation Comments eGFR (test code = eGFR) 87 [facility] HospitalDmffmugQDXFZSJBTTFK4195-12-22 10:11:18 Test Item Value Reference Range Interpretation Comments Glucose Lvl (test code = Glucose Lvl) 125 70-99 [facility] HospitalQsohretPLDYFNJMTWKS1314-38-03 10:11:18 Test Item Value Reference Range Interpretation Comments BUN (test code = BUN) 16 7-22 [facility] HospitalJhbcwcqTVWPCPFIDGBN7662-65-31 10:11:18 Test Item Value Reference Range Interpretation Comments Creatinine Lvl (test code = Creatinine 0.74 0.50-1.40 Lvl) [facility] HospitalQyuwlktHOGYASZVNFJF6389-56-41 10:11:18 Test Item Value Reference Range Interpretation Comments Potassium Lvl (test code = Potassium 3.5 3.5-5.1 Lvl) [facility] HospitalFguwpnyKSDYIBXJJZSH6871-56-59 10:11:18 Test Item Value Reference Range Interpretation Comments Chloride Lvl (test code = Chloride Lvl) 104 95-109 [facility] HospitalLbeqgjbTWRANCSJHJKV6465-08-79 10:11:18 Test Item Value Reference Range Interpretation Comments Sodium Lvl (test code = Sodium Lvl) 141 135-145 [facility] HospitalIwihjexIMBAFJKIZGGL3692-67-55 10:11:18 Test Item Value Reference Range Interpretation Comments CO2 (test code = CO2) 29 24-32 [facility] HospitalVibufwbPHBGLNNRMDIY4161-88-40 10:11:18 Test Item Value Reference Range Interpretation Comments Calcium Lvl (test code = Calcium Lvl) 9.4 8.5-10.5 [facility] PasoOeiytshSKNROQODXD3484-09-76 10:11:18 Test Item Value Reference Range Interpretation Comments Estimated % Lysis Rapid 1.2 See_Comment [Au tomated message] The (test code = Estimated syste m which generated % Lysis Rapid) this result t ransmitted reference range : <=7.5. The reference r lily was not used to int erpret this result as normal/abnormal . [facility] PasoOffmfosWBTPEIPZWM1367-91-71 10:11:18 Test Item Value Reference Range Interpretation Comments K-time Rapid (test code = K-time 0.8 min 0.6-2.3 Rapid) [facility] [place]XestnenPWCZXZCTYI0579-97-70 10:11:18 Test Item Value Reference Range Interpretation Comments Split Point Rapid (test code = Split 0.4 min Point Rapid) [facility] PasoGfxhpugFXKQKAJUQK8893-72-56 10:11:18 Test Item Value Reference Range Interpretation Comments ACT (TEG) Rapid (test code = ACT (TEG) 97 s 86-118 Rapid) [facility] PasoMyblvcvLMKIDIVYRO6335-97-70 10:11:18 Test Item Value Reference Range Interpretation Comments R-time Rapid (test code = R-time 0.5 min 0.4-0.7 Rapid) [facility] PasoAosihnvAJZSEIWDJJ6591-65-47 10:11:18 Test Item Value Reference Range Interpretation Comments G-value Rapid (test code = G-value 12.5 5.0-11.6 Rapid) [facility] PasoArettktZWBSCPUXCN8333-95-99 10:11:18 Test Item Value Reference Range Interpretation Comments Max Amplitude Rapid (test code = Max 72 mm 52-71 Amplitude Rapid) [facility] PasoHbmplvnDWGUCISWZZ0751-90-74 10:11:18 Test Item Value Reference Range Interpretation Comments Angle Rapid (test code = Angle 79 degrees 64-80 Rapid) [facility] PasoNvlgmlzJNHPXQHRVB7826-72-87 10:11:18 Test Item Value Reference Range Interpretation Comments INR (test code = INR) 0.98 0.85-1.17 [facility] PasoWpzzzogMVCTYGTZNR2498-82-97 10:11:18 Test Item Value Reference Range Interpretation Comments PT (test code = PT) 13.3 s 12.0-14.7 [facility] PasoYenuwjwZEUNIQHKAM9281-05-43 10:11:18 Test Item Value Reference Range Interpretation Comments MPV (test code = MPV) 10.4 7.4-10.4 [facility] PasoVeafcxzUQQHCDJUXJ5775-91-01 10:11:18 Test Item Value Reference Range Interpretation Comments Platelet (test code = Platelet) 178 133-450 [facility] PasoFhvfvyvYKGCNVIEOH6082-86-23 10:11:18 Test Item Value Reference Range Interpretation Comments RDW (test code = RDW) 13.2 11.5-14.5 [facility] PasoKppotepMXVQLKPDQB4430-61-08 10:11:18 Test Item Value Reference Range Interpretation Comments MCH (test code = MCH) 30.4 pg 27.0-31.0 [facility] PasoPefooncBXDMHABMIH7887-89-68 10:11:18 Test Item Value Reference Range Interpretation Comments MCHC (test code = MCHC) 33.7 32.0-36.0 [facility] PasoTidwiltAPSUJPXBKE5619-66-28 10:11:18 Test Item Value Reference Range Interpretation Comments Hgb (test code = Hgb) 12.2 12.0-16.0 [facility] [place]XeudhqaCUVBQLCLEP3739-43-42 10:11:18 Test Item Value Reference Range Interpretation Comments MCV (test code = MCV) 90.1 80.0-98.0 [facility] PasoTzszgqlWIDDEGFRCI6675-61-83 10:11:18 Test Item Value Reference Range Interpretation Comments Hct (test code = Hct) 36.2 36.0-48.0 [facility] PasoBgztyhpDEDWGOKWAR8936-77-04 10:11:18 Test Item Value Reference Range Interpretation Comments RBC (test code = RBC) 4.02 4.20-5.40 [facility] PasoCwccvckKHZYLGAUCV3525-27-70 10:11:18 Test Item Value Reference Range Interpretation Comments WBC (test code = WBC) 10.1 3.7-10.4 [facility] PasoWjnlhvsOYBERHTYOE7259-17-23 10:11:18 Test Item Value Reference Range Interpretation Comments PTT (test code = PTT) 35.5 s 22.9-35.8 [facility] PasoFzkzlysQFQWCPTNVA3912-32-28 10:11:18 Test Item Value Reference Range Interpretation Comments Eosinophils # (test code 0.2 See_Comment [A utomated message] The = Eosinophils #) system whic h generated this result tra nsmitted reference range : <=0.5. The reference r lily was not used to int erpret this result as normal/abnormal . [facility] PasoKnoqetxEJHPGGYSNA5097-40-77 10:11:18 Test Item Value Reference Range Interpretation Comments Monocytes (test code = Monocytes) 7.9 2.0-12.0 [facility] PasoPhooufaPLQIWNXGKN7203-51-76 10:11:18 Test Item Value Reference Range Interpretation Comments Eosinophils (test code = 2.5 See_Comment [A utomated message] The Eosinophils) system which ge nerated this result tra nsmitted reference range : <=4.0. The reference r lily was not used to int erpret this result as normal/abnormal . [facility] PasoZhenbhrXFKUHFTDWF9021-92-56 10:11:18 Test Item Value Reference Range Interpretation Comments Basophils # (test code 0.1 See_Comment [Aut omated message] The = Basophils #) system which generated this result tra nsmitted reference range : <=0.2. The reference r lily was not used to int erpret this result as normal/abnormal . [facility] PasoZexogcjXYMYYTLIFT4636-64-84 10:11:18 Test Item Value Reference Range Interpretation Comments Segs (test code = Segs) 65.1 45.0-75.0 [facility] PasoSzlylqiKBPZWRNXXM5019-40-67 10:11:18 Test Item Value Reference Range Interpretation Comments Lymphocytes (test code = Lymphocytes) 23.7 20.0-40.0 [facility] PasoBfqsxjnRCUFLRTZOU0196-95-44 10:11:18 Test Item Value Reference Range Interpretation Comments Lymphocytes # (test code = Lymphocytes 2.4 1.0-5.5 #) [facility] PasoBpqsylyWJBTUIQEAY6169-31-61 10:11:18 Test Item Value Reference Range Interpretation Comments Monocytes # (test code 0.8 See_Comment [Aut omated message] The = Monocytes #) system which generated this result tra nsmitted reference range : <=0.8. The reference r lily was not used to int erpret this result as normal/abnormal . [facility] [place]JdjqnikDDLLGEYXWW9111-38-17 10:11:18 Test Item Value Reference Range Interpretation Comments Basophils (test code = 0.8 See_Comment [Aut omated message] The Basophils) system which ge nerated this result tra nsmitted reference range : <=1.0. The reference r lily was not used to int erpret this result as normal/abnormal . [facility] [place]MgxfymsBJZXUQCVUO3019-68-44 10:11:18 Test Item Value Reference Range Interpretation Comments Segs-Bands # (test code = Segs-Bands #) 6.6 1.5-8.1 [facility]2016-07-16 10:11:18 Test Item Value Reference Range Interpretation Comments Lactic Acid WB (test code = Lactic Acid 1.3 0.5-2.2 WB) [facility] HospitalJnxpcrfJTGFZBKSUSMN8121-27-94 10:11:18 Test Item Value Reference Range Interpretation Comments AGAP (test code = AGAP) 11.5 10.0-20.0 [facility] HospitalTpkxrlzEFRTYKIOSZTT9777-11-89 10:11:18 Test Item Value Reference Range Interpretation Comments eGFR (test code = eGFR) 87 [facility] HospitalFcfbcgkRCDHZDWUCNAA7399-54-62 10:11:18 Test Item Value Reference Range Interpretation Comments Glucose Lvl (test code = Glucose Lvl) 125 70-99 [facility] HospitalUripdqvWEWQIKWKKOQY7350-07-81 10:11:18 Test Item Value Reference Range Interpretation Comments BUN (test code = BUN) 16 7-22 [facility] HospitalWsdtycxPUQMJHUSZLDB7127-44-46 10:11:18 Test Item Value Reference Range Interpretation Comments Creatinine Lvl (test code = Creatinine 0.74 0.50-1.40 Lvl) [facility] HospitalOnirvloZYFSCKMGGQXO3669-56-45 10:11:18 Test Item Value Reference Range Interpretation Comments Potassium Lvl (test code = Potassium 3.5 3.5-5.1 Lvl) [facility] HospitalOgskigdCYAVKBWGCZXZ5473-85-64 10:11:18 Test Item Value Reference Range Interpretation Comments Chloride Lvl (test code = Chloride Lvl) 104 95-109 [facility] HospitalMqgpmtiYTEMLFBIVCJC9280-44-72 10:11:18 Test Item Value Reference Range Interpretation Comments Sodium Lvl (test code = Sodium Lvl) 141 135-145 [facility] HospitalLwrvzwaFWXYUWZYYSXM7504-94-60 10:11:18 Test Item Value Reference Range Interpretation Comments CO2 (test code = CO2) 29 24-32 [facility] HospitalHjteqxzICUBNUFORDBM1421-04-70 10:11:18 Test Item Value Reference Range Interpretation Comments Calcium Lvl (test code = Calcium Lvl) 9.4 8.5-10.5 [facility] PasoUoasyhfAXDHKWCXHM6568-79-60 10:11:18 Test Item Value Reference Range Interpretation Comments Estimated % Lysis Rapid 1.2 See_Comment [Au tomated message] The (test code = Estimated syste m which generated % Lysis Rapid) this result t ransmitted reference range : <=7.5. The reference r lily was not used to int erpret this result as normal/abnormal . [facility] PasoOlydpxyJCEJHWTVNU7860-62-77 10:11:18 Test Item Value Reference Range Interpretation Comments K-time Rapid (test code = K-time 0.8 min 0.6-2.3 Rapid) [facility] PasoPssuqarOXPGOMCYMT9832-01-55 10:11:18 Test Item Value Reference Range Interpretation Comments Split Point Rapid (test code = Split 0.4 min Point Rapid) [facility] PasoIcfynphXTBQMMVHVO9846-18-26 10:11:18 Test Item Value Reference Range Interpretation Comments ACT (TEG) Rapid (test code = ACT (TEG) 97 s 86-118 Rapid) [facility] PasoCkeowdeUERWQRQBRG6709-34-19 10:11:18 Test Item Value Reference Range Interpretation Comments R-time Rapid (test code = R-time 0.5 min 0.4-0.7 Rapid) [facility] PasoQgcqazbJKKROVZTNV1944-86-32 10:11:18 Test Item Value Reference Range Interpretation Comments G-value Rapid (test code = G-value 12.5 5.0-11.6 Rapid) [facility] PasoSpeebbsFJUEENZBCG4554-47-35 10:11:18 Test Item Value Reference Range Interpretation Comments Max Amplitude Rapid (test code = Max 72 mm 52-71 Amplitude Rapid) [facility] PasoOsabwteZJPDFRDZDW7664-51-80 10:11:18 Test Item Value Reference Range Interpretation Comments Angle Rapid (test code = Angle 79 degrees 64-80 Rapid) [facility] PasoHotzjiaVUNKCCTPCA2545-53-64 10:11:18 Test Item Value Reference Range Interpretation Comments INR (test code = INR) 0.98 0.85-1.17 [facility] PasoVduglmgLEKTRPABUM4720-34-18 10:11:18 Test Item Value Reference Range Interpretation Comments PT (test code = PT) 13.3 s 12.0-14.7 [facility] PasoApzlgiwCCYRGMOCJD6551-05-88 10:11:18 Test Item Value Reference Range Interpretation Comments MPV (test code = MPV) 10.4 7.4-10.4 [facility] PasoKtbaammMLGHIDSJNA8851-34-88 10:11:18 Test Item Value Reference Range Interpretation Comments Platelet (test code = Platelet) 178 133-450 [facility] PasoGiwychiYXASKYQIQG8894-57-18 10:11:18 Test Item Value Reference Range Interpretation Comments RDW (test code = RDW) 13.2 11.5-14.5 [facility] PasoGhvkwqoKMALYUSXKI6408-76-79 10:11:18 Test Item Value Reference Range Interpretation Comments MCH (test code = MCH) 30.4 pg 27.0-31.0 [facility] PasoZgkrndzPKBADFKIVV7109-26-06 10:11:18 Test Item Value Reference Range Interpretation Comments MCHC (test code = MCHC) 33.7 32.0-36.0 [facility] PasoBezcapaHPOAFDXNAQ0299-25-61 10:11:18 Test Item Value Reference Range Interpretation Comments Hgb (test code = Hgb) 12.2 12.0-16.0 [facility] PasoEegtmxbPAJGVTYEBS8783-61-77 10:11:18 Test Item Value Reference Range Interpretation Comments MCV (test code = MCV) 90.1 80.0-98.0 [facility] PasoErztviuCSWVHZWKAC7134-55-08 10:11:18 Test Item Value Reference Range Interpretation Comments Hct (test code = Hct) 36.2 36.0-48.0 [facility] PasoUrkkzzhBUWPTEDIWD3337-79-75 10:11:18 Test Item Value Reference Range Interpretation Comments RBC (test code = RBC) 4.02 4.20-5.40 [facility] PasoZhicpnxWLSIGJGJTW2663-70-86 10:11:18 Test Item Value Reference Range Interpretation Comments WBC (test code = WBC) 10.1 3.7-10.4 [facility] PasoRorycbrLIFDUMSNDG8419-83-88 10:11:18 Test Item Value Reference Range Interpretation Comments PTT (test code = PTT) 35.5 s 22.9-35.8 [facility] PasoIlaekabAJEQFRQYMQ4135-30-54 10:11:18 Test Item Value Reference Range Interpretation Comments Eosinophils # (test code 0.2 See_Comment [A utomated message] The = Eosinophils #) system whic h generated this result tra nsmitted reference range : <=0.5. The reference r lily was not used to int erpret this result as normal/abnormal . [facility] PasoRuvplotGRDLKEBGPX4590-56-18 10:11:18 Test Item Value Reference Range Interpretation Comments Monocytes (test code = Monocytes) 7.9 2.0-12.0 [facility] PasoTrlnrhjYNIOQDQWTU9656-07-11 10:11:18 Test Item Value Reference Range Interpretation Comments Eosinophils (test code = 2.5 See_Comment [A utomated message] The Eosinophils) system which ge nerated this result tra nsmitted reference range : <=4.0. The reference r lily was not used to int erpret this result as normal/abnormal . [facility] PasoNyztrijCRRKTMDASU7571-69-21 10:11:18 Test Item Value Reference Range Interpretation Comments Basophils # (test code 0.1 See_Comment [Aut omated message] The = Basophils #) system which generated this result tra nsmitted reference range : <=0.2. The reference r lily was not used to int erpret this result as normal/abnormal . [facility] PasoXzbxdanUNQSOCRZCI0693-82-50 10:11:18 Test Item Value Reference Range Interpretation Comments Segs (test code = Segs) 65.1 45.0-75.0 [facility] PasoRgigyefDHAIEMCXWL2819-70-85 10:11:18 Test Item Value Reference Range Interpretation Comments Lymphocytes (test code = Lymphocytes) 23.7 20.0-40.0 [facility] PasoAkkfwavVCJEBFKXFG8395-66-92 10:11:18 Test Item Value Reference Range Interpretation Comments Lymphocytes # (test code = Lymphocytes 2.4 1.0-5.5 #) [facility] PasoOcqyoesKQMZQPNIPC2963-29-76 10:11:18 Test Item Value Reference Range Interpretation Comments Monocytes # (test code 0.8 See_Comment [Aut omated message] The = Monocytes #) system which generated this result tra nsmitted reference range : <=0.8. The reference r lily was not used to int erpret this result as normal/abnormal . [facility] PasoCcvcqctDBMLJECJDX8513-56-88 10:11:18 Test Item Value Reference Range Interpretation Comments Basophils (test code = 0.8 See_Comment [Aut omated message] The Basophils) system which ge nerated this result tra nsmitted reference range : <=1.0. The reference r lily was not used to int erpret this result as normal/abnormal . [facility] PasoTmrarkyDKLHYOMBBP5787-85-03 10:11:18 Test Item Value Reference Range Interpretation Comments Segs-Bands # (test code = Segs-Bands #) 6.6 1.5-8.1 [facility]2016-07-16 10:11:18 Test Item Value Reference Range Interpretation Comments Lactic Acid WB (test code = Lactic Acid 1.3 0.5-2.2 WB) [facility] HospitalVknxpzyFEAFAJDOXJDD4631-92-33 10:11:18 Test Item Value Reference Range Interpretation Comments AGAP (test code = AGAP) 11.5 10.0-20.0 [facility] HospitalRrygocrSXEINQJVAJZX2354-98-05 10:11:18 Test Item Value Reference Range Interpretation Comments eGFR (test code = eGFR) 87 [facility] HospitalAvenldnRUWFDIDUCDWK2018-60-83 10:11:18 Test Item Value Reference Range Interpretation Comments Glucose Lvl (test code = Glucose Lvl) 125 70-99 [facility] HospitalUzmbganFJDCZFLCEOQO7600-18-45 10:11:18 Test Item Value Reference Range Interpretation Comments BUN (test code = BUN) 16 7-22 [facility] HospitalMmjmrekRIJYNRXAVCOP6907-71-75 10:11:18 Test Item Value Reference Range Interpretation Comments Creatinine Lvl (test code = Creatinine 0.74 0.50-1.40 Lvl) [facility] HospitalOtrvvbhIEEQMEHDUQHG8812-12-07 10:11:18 Test Item Value Reference Range Interpretation Comments Potassium Lvl (test code = Potassium 3.5 3.5-5.1 Lvl) [facility] HospitalDelorkuTVBXCAJDRVOA3325-87-54 10:11:18 Test Item Value Reference Range Interpretation Comments Chloride Lvl (test code = Chloride Lvl) 104 95-109 [facility] HospitalChqpklhYWYUMVJETHBP0558-63-50 10:11:18 Test Item Value Reference Range Interpretation Comments Sodium Lvl (test code = Sodium Lvl) 141 135-145 [facility] HospitalLkawmwmTSVUJIEVQFTZ1526-47-12 10:11:18 Test Item Value Reference Range Interpretation Comments CO2 (test code = CO2) 29 24-32 [facility] HospitalLnrhcjlVHNZHDPECOZY6492-15-73 10:11:18 Test Item Value Reference Range Interpretation Comments Calcium Lvl (test code = Calcium Lvl) 9.4 8.5-10.5 [facility] PasoXevwulwVWZKCVCJLP6038-72-42 10:11:18 Test Item Value Reference Range Interpretation Comments Estimated % Lysis Rapid 1.2 See_Comment [Au tomated message] The (test code = Estimated syste m which generated % Lysis Rapid) this result t ransmitted reference range : <=7.5. The reference r lily was not used to int erpret this result as normal/abnormal . [facility] PasoTiueemhYYECEAMGNH6911-93-66 10:11:18 Test Item Value Reference Range Interpretation Comments K-time Rapid (test code = K-time 0.8 min 0.6-2.3 Rapid) [facility] PasoQvzsxopENNXXCDHCB9417-44-59 10:11:18 Test Item Value Reference Range Interpretation Comments Split Point Rapid (test code = Split 0.4 min Point Rapid) [facility] PasoNbbrvbtLVWCZHSLRJ8691-94-43 10:11:18 Test Item Value Reference Range Interpretation Comments ACT (TEG) Rapid (test code = ACT (TEG) 97 s 86-118 Rapid) [facility] PasoXgfzjhxPAQDUCKRGJ2006-34-81 10:11:18 Test Item Value Reference Range Interpretation Comments R-time Rapid (test code = R-time 0.5 min 0.4-0.7 Rapid) [facility] PasoKqxkuiyVWOYPMLWGE2401-12-52 10:11:18 Test Item Value Reference Range Interpretation Comments G-value Rapid (test code = G-value 12.5 5.0-11.6 Rapid) [facility] PasoUtkeftbROLCYUBBMM6810-97-21 10:11:18 Test Item Value Reference Range Interpretation Comments Max Amplitude Rapid (test code = Max 72 mm 52-71 Amplitude Rapid) [facility] PasoPuaedoeMWMQOWQXUK3323-27-22 10:11:18 Test Item Value Reference Range Interpretation Comments Angle Rapid (test code = Angle 79 degrees 64-80 Rapid) [facility] PasoDivvijkGLMTOUHHJL8622-24-26 10:11:18 Test Item Value Reference Range Interpretation Comments INR (test code = INR) 0.98 0.85-1.17 [facility] PasoLbclfjdYDGKUPTDUV1042-85-74 10:11:18 Test Item Value Reference Range Interpretation Comments PT (test code = PT) 13.3 s 12.0-14.7 [facility] PasoJqgisgnIFZGBJTSQN6135-92-38 10:11:18 Test Item Value Reference Range Interpretation Comments MPV (test code = MPV) 10.4 7.4-10.4 [facility] PasoDcaktsfQOWHCWIUQG1127-65-94 10:11:18 Test Item Value Reference Range Interpretation Comments Platelet (test code = Platelet) 178 133-450 [facility] PasoYbpevmfFXBIIENVCP5195-64-54 10:11:18 Test Item Value Reference Range Interpretation Comments RDW (test code = RDW) 13.2 11.5-14.5 [facility] PasoOudsejfPLIEKLWVQF8359-25-00 10:11:18 Test Item Value Reference Range Interpretation Comments MCH (test code = MCH) 30.4 pg 27.0-31.0 [facility] PasoZfxrelbEUNZPRBRJW6825-60-45 10:11:18 Test Item Value Reference Range Interpretation Comments MCHC (test code = MCHC) 33.7 32.0-36.0 [facility] PasoBfobsnnPFZTCLEGQW5248-97-41 10:11:18 Test Item Value Reference Range Interpretation Comments Hgb (test code = Hgb) 12.2 12.0-16.0 [facility] PasoVkdvzajUQBELPIZGN0218-65-55 10:11:18 Test Item Value Reference Range Interpretation Comments MCV (test code = MCV) 90.1 80.0-98.0 [facility] PasoKfvmcrzNTVNQAZZSP0770-94-79 10:11:18 Test Item Value Reference Range Interpretation Comments Hct (test code = Hct) 36.2 36.0-48.0 [facility] PasoFhoeytpEGHOWNUSJS2616-81-11 10:11:18 Test Item Value Reference Range Interpretation Comments RBC (test code = RBC) 4.02 4.20-5.40 [facility] PasoJnfjajyGDKNHENEAM4627-01-15 10:11:18 Test Item Value Reference Range Interpretation Comments WBC (test code = WBC) 10.1 3.7-10.4 [facility] PasoHutfcytDZPDYMPQED0374-65-39 10:11:18 Test Item Value Reference Range Interpretation Comments PTT (test code = PTT) 35.5 s 22.9-35.8 [facility] PasoWksdmnaFXALAAPOOO5995-52-65 10:11:18 Test Item Value Reference Range Interpretation Comments Eosinophils # (test code 0.2 See_Comment [A utomated message] The = Eosinophils #) system wh h generated this result tra nsmitted reference range : <=0.5. The reference r lily was not used to int erpret this result as normal/abnormal . [facility] PasoIuxdjrrZDITASZJML2656-71-64 10:11:18 Test Item Value Reference Range Interpretation Comments Monocytes (test code = Monocytes) 7.9 2.0-12.0 [facility] PasoSpavrhtRSEDDFEQEU9368-97-72 10:11:18 Test Item Value Reference Range Interpretation Comments Eosinophils (test code = 2.5 See_Comment [A utomated message] The Eosinophils) system which ge nerated this result tra nsmitted reference range : <=4.0. The reference r lily was not used to int erpret this result as normal/abnormal . [facility] PasoUwhgjpmISTJBVHWZQ7190-13-57 10:11:18 Test Item Value Reference Range Interpretation Comments Basophils # (test code 0.1 See_Comment [Aut omated message] The = Basophils #) system which generated this result tra nsmitted reference range : <=0.2. The reference r lily was not used to int erpret this result as normal/abnormal . [facility] PasoLpfahciOWYGPFMCYL3911-21-49 10:11:18 Test Item Value Reference Range Interpretation Comments Segs (test code = Segs) 65.1 45.0-75.0 [facility] PasoNzffvhlZZKHTABHGV0888-97-79 10:11:18 Test Item Value Reference Range Interpretation Comments Lymphocytes (test code = Lymphocytes) 23.7 20.0-40.0 [facility] PasoDclmidjNPASYWONPM2417-16-38 10:11:18 Test Item Value Reference Range Interpretation Comments Lymphocytes # (test code = Lymphocytes 2.4 1.0-5.5 #) [facility] PasoQhyywdfPWVQRZMDOD7027-35-00 10:11:18 Test Item Value Reference Range Interpretation Comments Monocytes # (test code 0.8 See_Comment [Aut omated message] The = Monocytes #) system which generated this result tra nsmitted reference range : <=0.8. The reference r lily was not used to int erpret this result as normal/abnormal . [facility] PasoImdibyjWCCXYHVLCB3615-79-19 10:11:18 Test Item Value Reference Range Interpretation Comments Basophils (test code = 0.8 See_Comment [Aut omated message] The Basophils) system which ge nerated this result tra nsmitted reference range : <=1.0. The reference r lily was not used to int erpret this result as normal/abnormal . [facility] PasoOvqbmsuTCQMHYAYHF2678-71-94 10:11:18 Test Item Value Reference Range Interpretation Comments Segs-Bands # (test code = Segs-Bands #) 6.6 1.5-8.1 [facility]2016-07-16 10:11:18 Test Item Value Reference Range Interpretation Comments Lactic Acid WB (test code = Lactic Acid 1.3 0.5-2.2 WB) [facility] HospitalWccgxdgCLQBSBKHAVJH1618-73-27 10:11:18 Test Item Value Reference Range Interpretation Comments AGAP (test code = AGAP) 11.5 10.0-20.0 [facility] HospitalSxwykviTOXDGAVMFOMN2495-18-80 10:11:18 Test Item Value Reference Range Interpretation Comments eGFR (test code = eGFR) 87 [facility] HospitalQykdvzyEERROLVCAPYR7726-84-55 10:11:18 Test Item Value Reference Range Interpretation Comments Glucose Lvl (test code = Glucose Lvl) 125 70-99 [facility] HospitalCkwhtjrWWUXZAVTEYZK6877-91-79 10:11:18 Test Item Value Reference Range Interpretation Comments BUN (test code = BUN) 16 7-22 [facility] HospitalLxadbieWHFXLYGUINVD1081-04-83 10:11:18 Test Item Value Reference Range Interpretation Comments Creatinine Lvl (test code = Creatinine 0.74 0.50-1.40 Lvl) [facility] HospitalYsdhverDIHQSTQKGQLL5991-84-77 10:11:18 Test Item Value Reference Range Interpretation Comments Potassium Lvl (test code = Potassium 3.5 3.5-5.1 Lvl) [facility] HospitalGjggmfjHXRDUUCHGVGA4933-62-92 10:11:18 Test Item Value Reference Range Interpretation Comments Chloride Lvl (test code = Chloride Lvl) 104 95-109 [facility] HospitalKbbsmknQUIAAHYZFJWI7442-85-04 10:11:18 Test Item Value Reference Range Interpretation Comments Sodium Lvl (test code = Sodium Lvl) 141 135-145 [facility] HospitalQcewripOKGFPRPTZUDF5472-95-40 10:11:18 Test Item Value Reference Range Interpretation Comments CO2 (test code = CO2) 29 24-32 [facility] HospitalFatkxzkKUDETBQIUJAV4939-80-33 10:11:18 Test Item Value Reference Range Interpretation Comments Calcium Lvl (test code = Calcium Lvl) 9.4 8.5-10.5 [facility] PasoRnulfkiLSGRDLFXPZ3869-60-18 10:11:18 Test Item Value Reference Range Interpretation Comments Estimated % Lysis Rapid 1.2 See_Comment [Au tomated message] The (test code = Estimated syste m which generated % Lysis Rapid) this result t ransmitted reference range : <=7.5. The reference r lily was not used to int erpret this result as normal/abnormal . [facility] PasoUsvemuzTJXCOFCIDN2508-39-02 10:11:18 Test Item Value Reference Range Interpretation Comments K-time Rapid (test code = K-time 0.8 min 0.6-2.3 Rapid) [facility] PasoKqhsbjkCRUNSQPMLQ2072-51-41 10:11:18 Test Item Value Reference Range Interpretation Comments Split Point Rapid (test code = Split 0.4 min Point Rapid) [facility] PasoSffhjmmOTJXEVYSCO2885-52-34 10:11:18 Test Item Value Reference Range Interpretation Comments ACT (TEG) Rapid (test code = ACT (TEG) 97 s 86-118 Rapid) [facility] PasoPpuriwnCFYKAILDUV4280-19-43 10:11:18 Test Item Value Reference Range Interpretation Comments R-time Rapid (test code = R-time 0.5 min 0.4-0.7 Rapid) [facility] PasoMqloggrNHPXPRUHRM2385-93-22 10:11:18 Test Item Value Reference Range Interpretation Comments G-value Rapid (test code = G-value 12.5 5.0-11.6 Rapid) [facility] PasoSkpvugmKGYGADQCTG6129-30-00 10:11:18 Test Item Value Reference Range Interpretation Comments Max Amplitude Rapid (test code = Max 72 mm 52-71 Amplitude Rapid) [facility] PasoOjcmmpuCSQHXACFVQ5658-78-83 10:11:18 Test Item Value Reference Range Interpretation Comments Angle Rapid (test code = Angle 79 degrees 64-80 Rapid) [facility] PasoGhtzjwhIMFNHSYRDF7780-79-91 10:11:18 Test Item Value Reference Range Interpretation Comments INR (test code = INR) 0.98 0.85-1.17 [facility] PasoXjkfrxuURWNLYESMC4591-24-85 10:11:18 Test Item Value Reference Range Interpretation Comments PT (test code = PT) 13.3 s 12.0-14.7 [facility] PasoXwoqsflCFBWPQFRQK3640-31-11 10:11:18 Test Item Value Reference Range Interpretation Comments MPV (test code = MPV) 10.4 7.4-10.4 [facility] PasoLcfpecrFVHXXFIBGH3551-69-91 10:11:18 Test Item Value Reference Range Interpretation Comments Platelet (test code = Platelet) 178 133-450 [facility] PasoGmcggviTCMDYOLPFU7761-10-80 10:11:18 Test Item Value Reference Range Interpretation Comments RDW (test code = RDW) 13.2 11.5-14.5 [facility] PasoXcqkmjnCMQJKKLXYT1500-07-36 10:11:18 Test Item Value Reference Range Interpretation Comments MCH (test code = MCH) 30.4 pg 27.0-31.0 [facility] PasoWyzacnvDQLRRGWQLF5283-86-46 10:11:18 Test Item Value Reference Range Interpretation Comments MCHC (test code = MCHC) 33.7 32.0-36.0 [facility] PasoAgvkxxkWRRTTHQYMP9900-94-11 10:11:18 Test Item Value Reference Range Interpretation Comments Hgb (test code = Hgb) 12.2 12.0-16.0 [facility] PasoWyrqwwqBUMVHEZUQV8876-65-93 10:11:18 Test Item Value Reference Range Interpretation Comments MCV (test code = MCV) 90.1 80.0-98.0 [facility] PasoZupunntDQHDLIEROA9635-96-48 10:11:18 Test Item Value Reference Range Interpretation Comments Hct (test code = Hct) 36.2 36.0-48.0 [facility] PasoUrfeubpZFKGJLCWUS2544-43-39 10:11:18 Test Item Value Reference Range Interpretation Comments RBC (test code = RBC) 4.02 4.20-5.40 [facility] PasoSjgakpsFDQJQXUNHF9187-27-78 10:11:18 Test Item Value Reference Range Interpretation Comments WBC (test code = WBC) 10.1 3.7-10.4 [facility] PasoBhbgolgUZIZEISLTC1304-06-03 10:11:18 Test Item Value Reference Range Interpretation Comments PTT (test code = PTT) 35.5 s 22.9-35.8 [facility] PasoHvjxgukTVWMJTKYVG3032-26-57 10:11:18 Test Item Value Reference Range Interpretation Comments Eosinophils # (test code 0.2 See_Comment [A utomated message] The = Eosinophils #) system wh h generated this result tra nsmitted reference range : <=0.5. The reference r lily was not used to int erpret this result as normal/abnormal . [facility] PasoErlxvqiOTITNOPRLU7723-04-14 10:11:18 Test Item Value Reference Range Interpretation Comments Monocytes (test code = Monocytes) 7.9 2.0-12.0 [facility] PasoXwtbccsOWYFGHPATT1562-30-14 10:11:18 Test Item Value Reference Range Interpretation Comments Eosinophils (test code = 2.5 See_Comment [A utomated message] The Eosinophils) system which ge nerated this result tra nsmitted reference range : <=4.0. The reference r lily was not used to int erpret this result as normal/abnormal . [facility] PasoDidcuzrYUECLFPTZV8142-30-64 10:11:18 Test Item Value Reference Range Interpretation Comments Basophils # (test code 0.1 See_Comment [Aut omated message] The = Basophils #) system which generated this result tra nsmitted reference range : <=0.2. The reference r lily was not used to int erpret this result as normal/abnormal . [facility] PasoHdyzozxRHUKLEWDNU2835-51-89 10:11:18 Test Item Value Reference Range Interpretation Comments Segs (test code = Segs) 65.1 45.0-75.0 [facility] PasoNocsfaeOQJBPSXIHR2103-63-80 10:11:18 Test Item Value Reference Range Interpretation Comments Lymphocytes (test code = Lymphocytes) 23.7 20.0-40.0 [facility] PasoRaxnwvuUHCWTLLZSF9814-24-14 10:11:18 Test Item Value Reference Range Interpretation Comments Lymphocytes # (test code = Lymphocytes 2.4 1.0-5.5 #) [facility] PasoNqvsiymRWJPHCYVLR6229-22-21 10:11:18 Test Item Value Reference Range Interpretation Comments Monocytes # (test code 0.8 See_Comment [Aut omated message] The = Monocytes #) system which generated this result tra nsmitted reference range : <=0.8. The reference r lily was not used to int erpret this result as normal/abnormal . [facility] PasoQuiretcQRCAQPLBZC2384-43-42 10:11:18 Test Item Value Reference Range Interpretation Comments Basophils (test code = 0.8 See_Comment [Aut omated message] The Basophils) system which ge nerated this result tra nsmitted reference range : <=1.0. The reference r lily was not used to int erpret this result as normal/abnormal . [facility] PasoQeyrrsxNBSQJEUGAL0084-07-20 10:11:18 Test Item Value Reference Range Interpretation Comments Segs-Bands # (test code = Segs-Bands #) 6.6 1.5-8.1 [facility]2016-07-16 10:11:18 Test Item Value Reference Range Interpretation Comments Lactic Acid WB (test code = Lactic Acid 1.3 0.5-2.2 WB) [facility] HospitalXjcoavtYWMWSXCKGRGO8738-50-57 10:11:18 Test Item Value Reference Range Interpretation Comments AGAP (test code = AGAP) 11.5 10.0-20.0 [facility] HospitalAosmtzyQZFRSUYZPFOA5353-69-10 10:11:18 Test Item Value Reference Range Interpretation Comments eGFR (test code = eGFR) 87 [facility] HospitalZzerdrpATSBEAVRTVXM3529-71-96 10:11:18 Test Item Value Reference Range Interpretation Comments Glucose Lvl (test code = Glucose Lvl) 125 70-99 [facility] HospitalXalcopuRJZPPANWEFPH3854-70-94 10:11:18 Test Item Value Reference Range Interpretation Comments BUN (test code = BUN) 16 7-22 [facility] HospitalWrgqgkpNMEBSMFZZOGP2763-21-69 10:11:18 Test Item Value Reference Range Interpretation Comments Creatinine Lvl (test code = Creatinine 0.74 0.50-1.40 Lvl) [facility] HospitalNpmnjkkVGSQYRIVUOXD8898-39-85 10:11:18 Test Item Value Reference Range Interpretation Comments Potassium Lvl (test code = Potassium 3.5 3.5-5.1 Lvl) [facility] HospitalGzcbzpzGYBSPASOQXLH4986-59-74 10:11:18 Test Item Value Reference Range Interpretation Comments Chloride Lvl (test code = Chloride Lvl) 104 95-109 [facility] HospitalUmarhflMONEZISCDNIL0537-07-65 10:11:18 Test Item Value Reference Range Interpretation Comments Sodium Lvl (test code = Sodium Lvl) 141 135-145 [facility] HospitalNuekywmABISLSNAHXUK0876-20-08 10:11:18 Test Item Value Reference Range Interpretation Comments CO2 (test code = CO2) 29 24-32 [facility] HospitalCpvkhliIWSUGQBIGHVK5406-18-98 10:11:18 Test Item Value Reference Range Interpretation Comments Calcium Lvl (test code = Calcium Lvl) 9.4 8.5-10.5 [facility] PasoLzceldsIHPTEDFYOQ0893-14-22 10:11:18 Test Item Value Reference Range Interpretation Comments Estimated % Lysis Rapid 1.2 See_Comment [Au tomated message] The (test code = Estimated syste m which generated % Lysis Rapid) this result t ransmitted reference range : <=7.5. The reference r lily was not used to int erpret this result as normal/abnormal . [facility] PasoCkwslyfPRXGOZBEOH2456-94-47 10:11:18 Test Item Value Reference Range Interpretation Comments K-time Rapid (test code = K-time 0.8 min 0.6-2.3 Rapid) [facility] PasoMdkqoswRBAUXWTIGV8941-02-07 10:11:18 Test Item Value Reference Range Interpretation Comments Split Point Rapid (test code = Split 0.4 min Point Rapid) [facility] PasoVuomsklFDGPGAELLT3670-35-58 10:11:18 Test Item Value Reference Range Interpretation Comments ACT (TEG) Rapid (test code = ACT (TEG) 97 s 86-118 Rapid) [facility] PasoJdmnzcfQBCXPLTTIA1314-29-20 10:11:18 Test Item Value Reference Range Interpretation Comments R-time Rapid (test code = R-time 0.5 min 0.4-0.7 Rapid) [facility] PasoGvsmaymRJHIZVVSYG2498-60-70 10:11:18 Test Item Value Reference Range Interpretation Comments G-value Rapid (test code = G-value 12.5 5.0-11.6 Rapid) [facility] PasoJwrwwunHVUAKAETXE8167-15-30 10:11:18 Test Item Value Reference Range Interpretation Comments Max Amplitude Rapid (test code = Max 72 mm 52-71 Amplitude Rapid) [facility] PasoClrkhxgMWZEJAXWUV0197-25-93 10:11:18 Test Item Value Reference Range Interpretation Comments Angle Rapid (test code = Angle 79 degrees 64-80 Rapid) [facility] PasoMjfvnjoKNREJVQNDI5260-04-20 10:11:18 Test Item Value Reference Range Interpretation Comments INR (test code = INR) 0.98 0.85-1.17 [facility] PasoQjwvxidEYOWLBFXFG5617-27-83 10:11:18 Test Item Value Reference Range Interpretation Comments PT (test code = PT) 13.3 s 12.0-14.7 [facility] PasoFvzfvyzLUADKYNAZQ6157-93-12 10:11:18 Test Item Value Reference Range Interpretation Comments MPV (test code = MPV) 10.4 7.4-10.4 [facility] PasoIjrfmkiDFCBNNMZQO0566-34-08 10:11:18 Test Item Value Reference Range Interpretation Comments Platelet (test code = Platelet) 178 133-450 [facility] PasoQidouekPWWGNYTEFB1176-18-24 10:11:18 Test Item Value Reference Range Interpretation Comments RDW (test code = RDW) 13.2 11.5-14.5 [facility] PasoMbpkybtRWPSLNXOYY7825-67-40 10:11:18 Test Item Value Reference Range Interpretation Comments MCH (test code = MCH) 30.4 pg 27.0-31.0 [facility] PasoBbcuomjLSGMZQEDZY4724-73-85 10:11:18 Test Item Value Reference Range Interpretation Comments MCHC (test code = MCHC) 33.7 32.0-36.0 [facility] PasoVuikvxuPPMXPPSNOD2681-72-95 10:11:18 Test Item Value Reference Range Interpretation Comments Hgb (test code = Hgb) 12.2 12.0-16.0 [facility] PasoPcbcxzgAONMOXCFKF4518-45-47 10:11:18 Test Item Value Reference Range Interpretation Comments MCV (test code = MCV) 90.1 80.0-98.0 [facility] PasoSrpbnkyGFDNTMQMLA3516-46-34 10:11:18 Test Item Value Reference Range Interpretation Comments Hct (test code = Hct) 36.2 36.0-48.0 [facility] PasoXzbnypaUYVTDZYYXA4301-24-70 10:11:18 Test Item Value Reference Range Interpretation Comments RBC (test code = RBC) 4.02 4.20-5.40 [facility] PasoJlkdwkfXOWJHWULSQ8077-38-21 10:11:18 Test Item Value Reference Range Interpretation Comments WBC (test code = WBC) 10.1 3.7-10.4 [facility] PasoUhlzfufFNFCYHVVVO2227-93-06 10:11:18 Test Item Value Reference Range Interpretation Comments PTT (test code = PTT) 35.5 s 22.9-35.8 [facility] PasoOjkrzmzVSUACIDMMY2463-02-42 10:11:18 Test Item Value Reference Range Interpretation Comments Eosinophils # (test code 0.2 See_Comment [A utomated message] The = Eosinophils #) system whic h generated this result tra nsmitted reference range : <=0.5. The reference r lily was not used to int erpret this result as normal/abnormal . [facility] PasoHqazzdsOLMKBOTNMX2550-69-97 10:11:18 Test Item Value Reference Range Interpretation Comments Monocytes (test code = Monocytes) 7.9 2.0-12.0 [facility] PasoDxaufviFMXYSUUBRL2615-34-78 10:11:18 Test Item Value Reference Range Interpretation Comments Eosinophils (test code = 2.5 See_Comment [A utomated message] The Eosinophils) system which ge nerated this result tra nsmitted reference range : <=4.0. The reference r lily was not used to int erpret this result as normal/abnormal . [facility] PasoFhuoymlGIPCLNZLOB3829-99-06 10:11:18 Test Item Value Reference Range Interpretation Comments Basophils # (test code 0.1 See_Comment [Aut omated message] The = Basophils #) system which generated this result tra nsmitted reference range : <=0.2. The reference r lily was not used to int erpret this result as normal/abnormal . [facility] PasoYzthfwiPPPTNYAFYT9650-35-99 10:11:18 Test Item Value Reference Range Interpretation Comments Segs (test code = Segs) 65.1 45.0-75.0 [facility] PasoQanudkhPAADDGJLYU0065-26-92 10:11:18 Test Item Value Reference Range Interpretation Comments Lymphocytes (test code = Lymphocytes) 23.7 20.0-40.0 [facility] PasoRwehyovOLGPDLPNEB3782-39-25 10:11:18 Test Item Value Reference Range Interpretation Comments Lymphocytes # (test code = Lymphocytes 2.4 1.0-5.5 #) [facility] PasoQjhwztzHHGQTKYUGX7102-01-76 10:11:18 Test Item Value Reference Range Interpretation Comments Monocytes # (test code 0.8 See_Comment [Aut omated message] The = Monocytes #) system which generated this result tra nsmitted reference range : <=0.8. The reference r lily was not used to int erpret this result as normal/abnormal . [facility] PasoEozgsuqOVOJUAVGYS9320-50-77 10:11:18 Test Item Value Reference Range Interpretation Comments Basophils (test code = 0.8 See_Comment [Aut omated message] The Basophils) system which ge nerated this result tra nsmitted reference range : <=1.0. The reference r lily was not used to int erpret this result as normal/abnormal . [facility] PasoFyoktzcTBFVABPYQC0086-36-55 10:11:18 Test Item Value Reference Range Interpretation Comments Segs-Bands # (test code = Segs-Bands #) 6.6 1.5-8.1 [facility]2016-07-16 10:11:18 Test Item Value Reference Range Interpretation Comments Lactic Acid WB (test code = Lactic Acid 1.3 0.5-2.2 WB) [facility] HospitalDwqwdtnAFJWLSDHUPPK2401-22-13 10:11:18 Test Item Value Reference Range Interpretation Comments AGAP (test code = AGAP) 11.5 10.0-20.0 [facility] HospitalEkttwrgTAIOJINGYVNC9976-36-00 10:11:18 Test Item Value Reference Range Interpretation Comments eGFR (test code = eGFR) 87 [facility] HospitalHrnqrpbTMCYYEMDEQLU4289-14-24 10:11:18 Test Item Value Reference Range Interpretation Comments Glucose Lvl (test code = Glucose Lvl) 125 70-99 [facility] HospitalSwbusanQKADQVHAWIQZ3313-02-49 10:11:18 Test Item Value Reference Range Interpretation Comments BUN (test code = BUN) 16 7-22 [facility] HospitalFsnelkaFJHHYPAPNGBK7265-00-26 10:11:18 Test Item Value Reference Range Interpretation Comments Creatinine Lvl (test code = Creatinine 0.74 0.50-1.40 Lvl) [facility]2016-07-16 10:11:18 Test Item Value Reference Range Interpretation Comments Lactic Acid WB (test code = Lactic Acid 1.3 0.5-2.2 WB) [facility] HospitalHzrcwmyHFKKFFMYAFJI3067-82-55 10:11:18 Test Item Value Reference Range Interpretation Comments AGAP (test code = AGAP) 11.5 10.0-20.0 [facility] HospitalVarpdbrZWUPMCIXLCRV9498-21-00 10:11:18 Test Item Value Reference Range Interpretation Comments eGFR (test code = eGFR) 87 [facility] HospitalEvwspsdYTZLVJZIMYJC1819-16-93 10:11:18 Test Item Value Reference Range Interpretation Comments Glucose Lvl (test code = Glucose Lvl) 125 70-99 [facility] HospitalVqndclxBDWQSNEAHAYJ8494-16-02 10:11:18 Test Item Value Reference Range Interpretation Comments BUN (test code = BUN) 16 7-22 [facility]VsartfzLXMLNZTPBTCF6792-76-61 10:11:18 Test Item Value Reference Range Interpretation Comments Creatinine Lvl (test code = Creatinine 0.74 0.50-1.40 Lvl) [facility] HospitalZonpbvyQRLXKHIYJIAY3475-98-92 10:11:18 Test Item Value Reference Range Interpretation Comments Potassium Lvl (test code = Potassium 3.5 3.5-5.1 Lvl) [facility] HospitalYvswweuKZBRMINURBWL5551-16-64 10:11:18 Test Item Value Reference Range Interpretation Comments Chloride Lvl (test code = Chloride Lvl) 104 95-109 [facility] HospitalDgvqvdwARMNHMATHWAL2347-15-88 10:11:18 Test Item Value Reference Range Interpretation Comments Sodium Lvl (test code = Sodium Lvl) 141 135-145 [facility] HospitalYfsjnjgTSUPGCYVXFAT3618-82-13 10:11:18 Test Item Value Reference Range Interpretation Comments CO2 (test code = CO2) 29 24-32 [facility] HospitalRskqcguSMKECUTWWMBZ5133-38-49 10:11:18 Test Item Value Reference Range Interpretation Comments Potassium Lvl (test code = Potassium 3.5 3.5-5.1 Lvl) [facility] HospitalEiwubzcIKRWAFMOOUCP0072-90-48 10:11:18 Test Item Value Reference Range Interpretation Comments Calcium Lvl (test code = Calcium Lvl) 9.4 8.5-10.5 [facility]NsnrrlsWREGNBPZLR2499-00-96 10:11:18 Test Item Value Reference Range Interpretation Comments Estimated % Lysis Rapid 1.2 See_Comment [Au tomated message] The (test code = Estimated syste m which generated % Lysis Rapid) this result t ransmitted reference range : <=7.5. The reference r lily was not used to int erpret this result as normal/abnormal . [facility] PasoHtjuwzjUJEJVSTQQC3953-45-58 10:11:18 Test Item Value Reference Range Interpretation Comments K-time Rapid (test code = K-time 0.8 min 0.6-2.3 Rapid) [facility] PasoDinxkdnELIAZTBGYF3863-47-31 10:11:18 Test Item Value Reference Range Interpretation Comments Split Point Rapid (test code = Split 0.4 min Point Rapid) [facility] PasoRgklfetAPRFIFFFHV7432-89-02 10:11:18 Test Item Value Reference Range Interpretation Comments ACT (TEG) Rapid (test code = ACT (TEG) 97 s 86-118 Rapid) [facility] PasoSlphjzuZXXKHIQRZK6158-40-09 10:11:18 Test Item Value Reference Range Interpretation Comments R-time Rapid (test code = R-time 0.5 min 0.4-0.7 Rapid) [facility] PasoVbcxrfxXSXCWPYFUI9993-48-74 10:11:18 Test Item Value Reference Range Interpretation Comments G-value Rapid (test code = G-value 12.5 5.0-11.6 Rapid) [facility] PasoDgiurttFPDCZSBKWD5896-81-58 10:11:18 Test Item Value Reference Range Interpretation Comments Max Amplitude Rapid (test code = Max 72 mm 52-71 Amplitude Rapid) [facility] PasoXzcaikrKJKVDUWYZY8555-63-77 10:11:18 Test Item Value Reference Range Interpretation Comments Angle Rapid (test code = Angle 79 degrees 64-80 Rapid) [facility] PasoQgajevkQDIZGCKUMT9114-06-06 10:11:18 Test Item Value Reference Range Interpretation Comments INR (test code = INR) 0.98 0.85-1.17 [facility]FqppzdiGAJQBVJSDTQF7710-98-24 10:11:18 Test Item Value Reference Range Interpretation Comments Chloride Lvl (test code = Chloride Lvl) 104 95-109 [facility] PasoTsizlmlWMFUJLAIYU6824-66-15 10:11:18 Test Item Value Reference Range Interpretation Comments PT (test code = PT) 13.3 s 12.0-14.7 [facility] PasoNaaxiwdBPDYNRETII9676-58-64 10:11:18 Test Item Value Reference Range Interpretation Comments MPV (test code = MPV) 10.4 7.4-10.4 [facility]VduxktuYUANTDXHHD4984-74-79 10:11:18 Test Item Value Reference Range Interpretation Comments Platelet (test code = Platelet) 178 133-450 [facility] PasoNvdquxsEPEGTDVOKN7736-67-10 10:11:18 Test Item Value Reference Range Interpretation Comments RDW (test code = RDW) 13.2 11.5-14.5 [facility] PasoSsatwsrENPSQHRIYY7322-36-29 10:11:18 Test Item Value Reference Range Interpretation Comments MCH (test code = MCH) 30.4 pg 27.0-31.0 [facility]CjenqdzTNQGYYEAEY6067-70-00 10:11:18 Test Item Value Reference Range Interpretation Comments MCHC (test code = MCHC) 33.7 32.0-36.0 [facility]awMjxqtylLGLXHWBUOF7038-35-39 10:11:18 Test Item Value Reference Range Interpretation Comments Hgb (test code = Hgb) 12.2 12.0-16.0 [facility] PasoQtlpcyiQIVDJDEVNR7192-90-14 10:11:18 Test Item Value Reference Range Interpretation Comments MCV (test code = MCV) 90.1 80.0-98.0 [facility]awRekyszrTVGULNLVGZ0481-22-28 10:11:18 Test Item Value Reference Range Interpretation Comments Hct (test code = Hct) 36.2 36.0-48.0 [facility] PasoEjzfdvpIGVEORNCLB6321-54-00 10:11:18 Test Item Value Reference Range Interpretation Comments RBC (test code = RBC) 4.02 4.20-5.40 [facility]ownXmihdxiNMFLPVKZNLTN8439-21-29 10:11:18 Test Item Value Reference Range Interpretation Comments Sodium Lvl (test code = Sodium Lvl) 141 135-145 [facility]awSruepvkBNWHHFUTVX4764-55-32 10:11:18 Test Item Value Reference Range Interpretation Comments WBC (test code = WBC) 10.1 3.7-10.4 [facility] PasoCxzzhkdOEZMKVSCDT9023-22-49 10:11:18 Test Item Value Reference Range Interpretation Comments PTT (test code = PTT) 35.5 s 22.9-35.8 [facility] PasoTjdzertHIURXYKLZM8821-45-10 10:11:18 Test Item Value Reference Range Interpretation Comments Eosinophils # (test code 0.2 See_Comment [A utomated message] The = Eosinophils #) system whic h generated this result tra nsmitted reference range : <=0.5. The reference r lily was not used to int erpret this result as normal/abnormal . [facility] PasoZaozdysPUBIPEFKZQ8337-88-46 10:11:18 Test Item Value Reference Range Interpretation Comments Monocytes (test code = Monocytes) 7.9 2.0-12.0 [facility] PasoHstvfceFUCDZGQUUP0780-98-08 10:11:18 Test Item Value Reference Range Interpretation Comments Eosinophils (test code = 2.5 See_Comment [A utomated message] The Eosinophils) system which ge nerated this result tra nsmitted reference range : <=4.0. The reference r lily was not used to int erpret this result as normal/abnormal . [facility] PasoRjhrjmvLHEPJIHXXY8722-23-04 10:11:18 Test Item Value Reference Range Interpretation Comments Basophils # (test code 0.1 See_Comment [Aut omated message] The = Basophils #) system which generated this result tra nsmitted reference range : <=0.2. The reference r lily was not used to int erpret this result as normal/abnormal . [facility] PasoKebdiarOFACDLMVKR5822-53-21 10:11:18 Test Item Value Reference Range Interpretation Comments Segs (test code = Segs) 65.1 45.0-75.0 [facility] PasoPelcgzhOXKHEHIBTV1038-32-71 10:11:18 Test Item Value Reference Range Interpretation Comments Lymphocytes (test code = Lymphocytes) 23.7 20.0-40.0 [facility] PasoQowhbqzWJFRJEJDZK2277-08-21 10:11:18 Test Item Value Reference Range Interpretation Comments Lymphocytes # (test code = Lymphocytes 2.4 1.0-5.5 #) [facility] PasoTtweltrVIVSOJFEQY4604-32-19 10:11:18 Test Item Value Reference Range Interpretation Comments Monocytes # (test code 0.8 See_Comment [Aut omated message] The = Monocytes #) system which generated this result tra nsmitted reference range : <=0.8. The reference r lily was not used to int erpret this result as normal/abnormal . [facility]ownVqgxnkgBPTPGGXYBEWD7797-80-95 10:11:18 Test Item Value Reference Range Interpretation Comments CO2 (test code = CO2) 29 24-32 [facility] PasoQisyrtfKWOBYTDRLG9895-59-60 10:11:18 Test Item Value Reference Range Interpretation Comments Basophils (test code = 0.8 See_Comment [Aut omated message] The Basophils) system which ge nerated this result tra nsmitted reference range : <=1.0. The reference r lily was not used to int erpret this result as normal/abnormal . [facility] PasoRpcvlghVMONQYQFGQ9861-35-35 10:11:18 Test Item Value Reference Range Interpretation Comments Segs-Bands # (test code = Segs-Bands #) 6.6 1.5-8.1 [facility]ownRjnjozqJCWTYHKFZBME6176-28-02 10:11:18 Test Item Value Reference Range Interpretation Comments Calcium Lvl (test code = Calcium Lvl) 9.4 8.5-10.5 [facility] PasoAidicrpVWHHQEWWPA5988-09-86 10:11:18 Test Item Value Reference Range Interpretation Comments Estimated % Lysis Rapid 1.2 See_Comment [Au tomated message] The (test code = Estimated syste m which generated % Lysis Rapid) this result t ransmitted reference range : <=7.5. The reference r lily was not used to int erpret this result as normal/abnormal . [facility] PasoGafcgoxUBKDRNYRND1053-11-30 10:11:18 Test Item Value Reference Range Interpretation Comments K-time Rapid (test code = K-time 0.8 min 0.6-2.3 Rapid) [facility] PasoSqlhjujNORZGJHECE3946-12-15 10:11:18 Test Item Value Reference Range Interpretation Comments Split Point Rapid (test code = Split 0.4 min Point Rapid) [facility] PasoXguczswZUFATMMXOR1895-90-81 10:11:18 Test Item Value Reference Range Interpretation Comments ACT (TEG) Rapid (test code = ACT (TEG) 97 s 86-118 Rapid) [facility] PasoGtqtexbQCANAQVLNP4889-87-08 10:11:18 Test Item Value Reference Range Interpretation Comments R-time Rapid (test code = R-time 0.5 min 0.4-0.7 Rapid) [facility] PasoLmvqxvqKBDJYDCNOT4255-80-49 10:11:18 Test Item Value Reference Range Interpretation Comments G-value Rapid (test code = G-value 12.5 5.0-11.6 Rapid) [facility] PasoZfescpyWZKNMWCCDA5706-82-86 10:11:18 Test Item Value Reference Range Interpretation Comments Max Amplitude Rapid (test code = Max 72 mm 52-71 Amplitude Rapid) [facility] PasoVsueqrbMVHKVDPGUQ8162-48-96 10:11:18 Test Item Value Reference Range Interpretation Comments Angle Rapid (test code = Angle 79 degrees 64-80 Rapid) [facility] PasoLgqcrsuDACHDDLPTO8174-64-46 10:11:18 Test Item Value Reference Range Interpretation Comments INR (test code = INR) 0.98 0.85-1.17 [facility] PasoZyydtutTIKXTRBQFQ0970-79-96 10:11:18 Test Item Value Reference Range Interpretation Comments PT (test code = PT) 13.3 s 12.0-14.7 [facility] PasoGidloptMNYLZWAETS9653-61-85 10:11:18 Test Item Value Reference Range Interpretation Comments MPV (test code = MPV) 10.4 7.4-10.4 [facility] PasoWpjawgrWODFQMZGCC7464-17-87 10:11:18 Test Item Value Reference Range Interpretation Comments Platelet (test code = Platelet) 178 133-450 [facility] PasoRlogjwpOLXPIRXQOO2026-80-57 10:11:18 Test Item Value Reference Range Interpretation Comments RDW (test code = RDW) 13.2 11.5-14.5 [facility] PasoBytunhtQHSLKDPUHK7411-44-66 10:11:18 Test Item Value Reference Range Interpretation Comments MCH (test code = MCH) 30.4 pg 27.0-31.0 [facility] PasoAbubtsoIERHKJKIVT9066-50-65 10:11:18 Test Item Value Reference Range Interpretation Comments MCHC (test code = MCHC) 33.7 32.0-36.0 [facility] PasoWuwpjdbUOJBMNYFGX1577-80-70 10:11:18 Test Item Value Reference Range Interpretation Comments Hgb (test code = Hgb) 12.2 12.0-16.0 [facility] PasoIlkncbdEPTANORTUN4125-16-42 10:11:18 Test Item Value Reference Range Interpretation Comments MCV (test code = MCV) 90.1 80.0-98.0 [facility] PasoGmmmdxsKYJIRNQMNS5373-66-63 10:11:18 Test Item Value Reference Range Interpretation Comments Hct (test code = Hct) 36.2 36.0-48.0 [facility] PasoHfzkfewBKKWDSWKYA0681-64-02 10:11:18 Test Item Value Reference Range Interpretation Comments RBC (test code = RBC) 4.02 4.20-5.40 [facility] PasoSykdmgkLNHZCUUESM6005-80-99 10:11:18 Test Item Value Reference Range Interpretation Comments WBC (test code = WBC) 10.1 3.7-10.4 [facility] PasoDldzijaLFLYQZEROE2426-87-72 10:11:18 Test Item Value Reference Range Interpretation Comments PTT (test code = PTT) 35.5 s 22.9-35.8 [facility] PasoDcvelrySGXRADRGVU3901-49-60 10:11:18 Test Item Value Reference Range Interpretation Comments Eosinophils # (test code 0.2 See_Comment [A utomated message] The = Eosinophils #) system whic h generated this result tra nsmitted reference range : <=0.5. The reference r lily was not used to int erpret this result as normal/abnormal . [facility] PasoBkaflqvNKQNNGKJDA3538-63-95 10:11:18 Test Item Value Reference Range Interpretation Comments Monocytes (test code = Monocytes) 7.9 2.0-12.0 [facility] PasoLdjcowgMVWPJDYQDR5081-15-41 10:11:18 Test Item Value Reference Range Interpretation Comments Eosinophils (test code = 2.5 See_Comment [A utomated message] The Eosinophils) system which ge nerated this result tra nsmitted reference range : <=4.0. The reference r lily was not used to int erpret this result as normal/abnormal . [facility] PasoVnouzqnEQKYFGBAPS7161-12-18 10:11:18 Test Item Value Reference Range Interpretation Comments Basophils # (test code 0.1 See_Comment [Aut omated message] The = Basophils #) system which generated this result tra nsmitted reference range : <=0.2. The reference r lily was not used to int erpret this result as normal/abnormal . [facility] PasoYyottfrNGMKKNVTCO9299-23-25 10:11:18 Test Item Value Reference Range Interpretation Comments Segs (test code = Segs) 65.1 45.0-75.0 [facility] VUFRL4400-50-17 10:11:18 Test Item Value Reference Range Interpretation Comments Lactic Acid WB (test code = Lactic Acid 1.3 0.5-2.2 WB) [facility]ownJlokrbfIVMPBPRIWROH5666-19-59 10:11:18 Test Item Value Reference Range Interpretation Comments AGAP (test code = AGAP) 11.5 10.0-20.0 [facility] HospitalNdwvkbiWQUUKEIRLCYS9216-61-95 10:11:18 Test Item Value Reference Range Interpretation Comments eGFR (test code = eGFR) 87 [facility] HospitalBbklvmoVUWPHMJMCQIT0761-37-00 10:11:18 Test Item Value Reference Range Interpretation Comments Glucose Lvl (test code = Glucose Lvl) 125 70-99 [facility] HospitalFjtvtggPUVTJTKRDUHC8765-15-45 10:11:18 Test Item Value Reference Range Interpretation Comments BUN (test code = BUN) 16 7-22 [facility] HospitalUqdrlxmPZPNFSBFDPTZ3089-19-27 10:11:18 Test Item Value Reference Range Interpretation Comments Creatinine Lvl (test code = Creatinine 0.74 0.50-1.40 Lvl) [facility] PasoYpxfejxUZAVAJXOMT6012-13-75 10:11:18 Test Item Value Reference Range Interpretation Comments Lymphocytes (test code = Lymphocytes) 23.7 20.0-40.0 [facility] HospitalSblywmrJXHXRDYLRZPM1908-83-75 10:11:18 Test Item Value Reference Range Interpretation Comments Potassium Lvl (test code = Potassium 3.5 3.5-5.1 Lvl) [facility] HospitalGxsqaqtGSYBUXLBMBWO8018-82-32 10:11:18 Test Item Value Reference Range Interpretation Comments Chloride Lvl (test code = Chloride Lvl) 104 95-109 [facility] HospitalCwsyvxxGDHOXAEBOVYI4834-22-97 10:11:18 Test Item Value Reference Range Interpretation Comments Sodium Lvl (test code = Sodium Lvl) 141 135-145 [facility] HospitalBksxdobGGMQAJQGBRJB9317-53-92 10:11:18 Test Item Value Reference Range Interpretation Comments CO2 (test code = CO2) 29 24-32 [facility] HospitalJmcrgtkUNMKPQZBCRLJ9678-95-64 10:11:18 Test Item Value Reference Range Interpretation Comments Calcium Lvl (test code = Calcium Lvl) 9.4 8.5-10.5 [facility] PasoCseaegqHYBONBBJUI0115-07-21 10:11:18 Test Item Value Reference Range Interpretation Comments Estimated % Lysis Rapid 1.2 See_Comment [Au tomated message] The (test code = Estimated syste m which generated % Lysis Rapid) this result t ransmitted reference range : <=7.5. The reference r lily was not used to int erpret this result as normal/abnormal . [facility] PasoDwiervtTOFWOWRGWB3187-37-76 10:11:18 Test Item Value Reference Range Interpretation Comments K-time Rapid (test code = K-time 0.8 min 0.6-2.3 Rapid) [facility] PasoGuhlvpsFKTQDGZZUR1326-43-94 10:11:18 Test Item Value Reference Range Interpretation Comments Split Point Rapid (test code = Split 0.4 min Point Rapid) [facility] PasoFukbgtcJQPTKIGLMD1499-09-50 10:11:18 Test Item Value Reference Range Interpretation Comments ACT (TEG) Rapid (test code = ACT (TEG) 97 s 86-118 Rapid) [facility] PasoKibyemnAUVXCUUWZH2087-11-83 10:11:18 Test Item Value Reference Range Interpretation Comments R-time Rapid (test code = R-time 0.5 min 0.4-0.7 Rapid) [facility] PasoXdezezuUZIPDGFCFV4616-37-88 10:11:18 Test Item Value Reference Range Interpretation Comments Lymphocytes # (test code = Lymphocytes 2.4 1.0-5.5 #) [facility] PasoSdabkaiBOJWGHUJJG0451-40-34 10:11:18 Test Item Value Reference Range Interpretation Comments G-value Rapid (test code = G-value 12.5 5.0-11.6 Rapid) [facility] PasoFjvucruJZBHRIPVGC3108-29-10 10:11:18 Test Item Value Reference Range Interpretation Comments Max Amplitude Rapid (test code = Max 72 mm 52-71 Amplitude Rapid) [facility] PasoPhnupzaQTLVQPSYVU2988-81-03 10:11:18 Test Item Value Reference Range Interpretation Comments Angle Rapid (test code = Angle 79 degrees 64-80 Rapid) [facility] PasoVzbdqttOOTRMPLTNT3239-72-64 10:11:18 Test Item Value Reference Range Interpretation Comments INR (test code = INR) 0.98 0.85-1.17 [facility] PasoCharqecDGOWQIEFST0219-95-69 10:11:18 Test Item Value Reference Range Interpretation Comments PT (test code = PT) 13.3 s 12.0-14.7 [facility] PasoGpakctrKVXBUDECAR6034-96-12 10:11:18 Test Item Value Reference Range Interpretation Comments MPV (test code = MPV) 10.4 7.4-10.4 [facility] PasoEdvkvkyWJZJAHXYKK4070-13-05 10:11:18 Test Item Value Reference Range Interpretation Comments Platelet (test code = Platelet) 178 133-450 [facility] PasoEbxjnmcJUQEMNBMPK4101-92-62 10:11:18 Test Item Value Reference Range Interpretation Comments RDW (test code = RDW) 13.2 11.5-14.5 [facility] PasoGfnmiyhJOOWHEYUZG2554-32-88 10:11:18 Test Item Value Reference Range Interpretation Comments MCH (test code = MCH) 30.4 pg 27.0-31.0 [facility] PasoNdrtozwJBMEXSDOHX4319-99-89 10:11:18 Test Item Value Reference Range Interpretation Comments MCHC (test code = MCHC) 33.7 32.0-36.0 [facility] PasoKevfhqeTMUIWROADX5130-48-17 10:11:18 Test Item Value Reference Range Interpretation Comments Monocytes # (test code 0.8 See_Comment [Aut omated message] The = Monocytes #) system which generated this result tra nsmitted reference range : <=0.8. The reference r lily was not used to int erpret this result as normal/abnormal . [facility] PasoSffnqwyQUXJVEXDYO2562-90-56 10:11:18 Test Item Value Reference Range Interpretation Comments Hgb (test code = Hgb) 12.2 12.0-16.0 [facility] PasoLtklmcbVYCYETXYYR9992-08-99 10:11:18 Test Item Value Reference Range Interpretation Comments MCV (test code = MCV) 90.1 80.0-98.0 [facility] PasoAhmlemgNQQBOVHROK7750-68-99 10:11:18 Test Item Value Reference Range Interpretation Comments Hct (test code = Hct) 36.2 36.0-48.0 [facility] PasoUzpxqllBSIYUMBRYV0631-02-57 10:11:18 Test Item Value Reference Range Interpretation Comments RBC (test code = RBC) 4.02 4.20-5.40 [facility] PasoOnkwhpnWETMEVRXHB0642-15-46 10:11:18 Test Item Value Reference Range Interpretation Comments WBC (test code = WBC) 10.1 3.7-10.4 [facility] PasoUrxlipmIDGFVRIRSJ2884-59-53 10:11:18 Test Item Value Reference Range Interpretation Comments PTT (test code = PTT) 35.5 s 22.9-35.8 [facility] PasoYzhvsfgACVIOOGCBX7336-44-02 10:11:18 Test Item Value Reference Range Interpretation Comments Eosinophils # (test code 0.2 See_Comment [A utomated message] The = Eosinophils #) system whic h generated this result tra nsmitted reference range : <=0.5. The reference r lily was not used to int erpret this result as normal/abnormal . [facility] PasoSmajgngKAWUCKGKNF2670-11-85 10:11:18 Test Item Value Reference Range Interpretation Comments Monocytes (test code = Monocytes) 7.9 2.0-12.0 [facility] PasoKftozhfJKXLAJUYNM4511-79-63 10:11:18 Test Item Value Reference Range Interpretation Comments Eosinophils (test code = 2.5 See_Comment [A utomated message] The Eosinophils) system which ge nerated this result tra nsmitted reference range : <=4.0. The reference r lily was not used to int erpret this result as normal/abnormal . [facility] PasoEdhwtpgKZCCGTJDUH5154-15-00 10:11:18 Test Item Value Reference Range Interpretation Comments Basophils # (test code 0.1 See_Comment [Aut omated message] The = Basophils #) system which generated this result tra nsmitted reference range : <=0.2. The reference r lily was not used to int erpret this result as normal/abnormal . [facility] PasoXyhzcwgFTBAATVTHG9831-43-21 10:11:18 Test Item Value Reference Range Interpretation Comments Basophils (test code = 0.8 See_Comment [Aut omated message] The Basophils) system which ge nerated this result tra nsmitted reference range : <=1.0. The reference r lily was not used to int erpret this result as normal/abnormal . [facility] PasoSztexjlOPPDUTIEJH8137-38-68 10:11:18 Test Item Value Reference Range Interpretation Comments Segs (test code = Segs) 65.1 45.0-75.0 [facility] PasoNqftpxbTBUWKNTBKY9298-34-50 10:11:18 Test Item Value Reference Range Interpretation Comments Lymphocytes (test code = Lymphocytes) 23.7 20.0-40.0 [facility] PasoHmvwsxoDVYVHQOXZA1642-39-45 10:11:18 Test Item Value Reference Range Interpretation Comments Lymphocytes # (test code = Lymphocytes 2.4 1.0-5.5 #) [facility] PasoLjznkwjCFDJDAMDUO4187-54-05 10:11:18 Test Item Value Reference Range Interpretation Comments Monocytes # (test code 0.8 See_Comment [Aut omated message] The = Monocytes #) system which generated this result tra nsmitted reference range : <=0.8. The reference r lily was not used to int erpret this result as normal/abnormal . [facility] PasoTijnktqBWMUYVALGY8371-29-00 10:11:18 Test Item Value Reference Range Interpretation Comments Basophils (test code = 0.8 See_Comment [Aut omated message] The Basophils) system which ge nerated this result tra nsmitted reference range : <=1.0. The reference r lily was not used to int erpret this result as normal/abnormal . [facility] PasoCmqinijDLWCSAJSKE7802-37-35 10:11:18 Test Item Value Reference Range Interpretation Comments Segs-Bands # (test code = Segs-Bands #) 6.6 1.5-8.1 [facility] PasoVgpvuguOTNNEFTOXL4749-42-66 10:11:18 Test Item Value Reference Range Interpretation Comments Segs-Bands # (test code = Segs-Bands #) 6.6 1.5-8.1 [facility]2016-07-16 10:11:18 Test Item Value Reference Range Interpretation Comments Lactic Acid WB (test code = Lactic Acid 1.3 0.5-2.2 WB) [facility] HospitalYiihaqdOXQPSSAHYGKY0616-06-81 10:11:18 Test Item Value Reference Range Interpretation Comments AGAP (test code = AGAP) 11.5 10.0-20.0 [facility] [facility]CemwwxaVEBSHKWFBQOA3328-54-28 10:11:18 Test Item Value Reference Range Interpretation Comments eGFR (test code = eGFR) 87 [facility]DzewfrwSGQXZYZTECSI6493-74-12 10:11:18 Test Item Value Reference Range Interpretation Comments Glucose Lvl (test code = Glucose Lvl) 125 70-99 [facility] HospitalEqppihzOLMYSYLGKHVE1416-04-44 10:11:18 Test Item Value Reference Range Interpretation Comments BUN (test code = BUN) 16 7-22 [facility] HospitalIwurdbnUBGHWZQHBVPA8069-38-60 10:11:18 Test Item Value Reference Range Interpretation Comments Creatinine Lvl (test code = Creatinine 0.74 0.50-1.40 Lvl) [facility] HospitalOzokpmeFRBVVVPNMKZI8034-94-13 10:11:18 Test Item Value Reference Range Interpretation Comments Potassium Lvl (test code = Potassium 3.5 3.5-5.1 Lvl) [facility] HospitalVjtqzeyAIMPYIXAZEYQ2545-58-54 10:11:18 Test Item Value Reference Range Interpretation Comments Chloride Lvl (test code = Chloride Lvl) 104 95-109 [facility] HospitalOnvkcxvTRFACVGSKEXW4561-20-64 10:11:18 Test Item Value Reference Range Interpretation Comments Sodium Lvl (test code = Sodium Lvl) 141 135-145 [facility] HospitalQshitzaPFRWNUNMHZXS6159-29-38 10:11:18 Test Item Value Reference Range Interpretation Comments CO2 (test code = CO2) 29 24-32 [facility] HospitalLojpvkzZYFVAHVJAZEI9843-83-41 10:11:18 Test Item Value Reference Range Interpretation Comments Calcium Lvl (test code = Calcium Lvl) 9.4 8.5-10.5 [facility] PasoBivismgIAIUXFPYFX0342-89-27 10:11:18 Test Item Value Reference Range Interpretation Comments Estimated % Lysis Rapid 1.2 See_Comment [Au tomated message] The (test code = Estimated syste m which generated % Lysis Rapid) this result t ransmitted reference range : <=7.5. The reference r lily was not used to int erpret this result as normal/abnormal . [facility] PasoNwpdfxkTXOGHWHZRM2291-00-17 10:11:18 Test Item Value Reference Range Interpretation Comments K-time Rapid (test code = K-time 0.8 min 0.6-2.3 Rapid) [facility] PasoPfayeveUTYMTYPTVC9892-35-31 10:11:18 Test Item Value Reference Range Interpretation Comments Split Point Rapid (test code = Split 0.4 min Point Rapid) [facility] PasoNvzpxizOGFYXFCUTE8322-76-16 10:11:18 Test Item Value Reference Range Interpretation Comments ACT (TEG) Rapid (test code = ACT (TEG) 97 s 86-118 Rapid) [facility] PasoZsetdvqPVDZFGUPSB0665-80-43 10:11:18 Test Item Value Reference Range Interpretation Comments R-time Rapid (test code = R-time 0.5 min 0.4-0.7 Rapid) [facility] PasoXzgiicfVBJRKGQWPS8767-68-30 10:11:18 Test Item Value Reference Range Interpretation Comments G-value Rapid (test code = G-value 12.5 5.0-11.6 Rapid) [facility] PasoWzgyrhqZMSBMBCSUO6805-09-14 10:11:18 Test Item Value Reference Range Interpretation Comments Max Amplitude Rapid (test code = Max 72 mm 52-71 Amplitude Rapid) [facility] PasoYslgrzjIKGMIYUSVA5778-45-88 10:11:18 Test Item Value Reference Range Interpretation Comments Angle Rapid (test code = Angle 79 degrees 64-80 Rapid) [facility] PasoGdbtzqxHXDDAROSDO5916-91-21 10:11:18 Test Item Value Reference Range Interpretation Comments INR (test code = INR) 0.98 0.85-1.17 [facility] PasoNdxfskyLMETBBRCOH4215-19-05 10:11:18 Test Item Value Reference Range Interpretation Comments PT (test code = PT) 13.3 s 12.0-14.7 [facility] PasoLwzbnqvXRTWGMBFLY9982-56-29 10:11:18 Test Item Value Reference Range Interpretation Comments MPV (test code = MPV) 10.4 7.4-10.4 [facility] PasoBgrhogbHNONIKWJQM2605-63-24 10:11:18 Test Item Value Reference Range Interpretation Comments Platelet (test code = Platelet) 178 133-450 [facility] PasoOchlecvKQTHVQOHEW7745-98-92 10:11:18 Test Item Value Reference Range Interpretation Comments RDW (test code = RDW) 13.2 11.5-14.5 [facility] PasoKjosiroGFCFMWHWRX7327-93-35 10:11:18 Test Item Value Reference Range Interpretation Comments MCH (test code = MCH) 30.4 pg 27.0-31.0 [facility] PasoMoluaaaIBBKCXLJFS0733-36-31 10:11:18 Test Item Value Reference Range Interpretation Comments MCHC (test code = MCHC) 33.7 32.0-36.0 [facility] PasoNicmoizVSDGPDENAM9497-13-38 10:11:18 Test Item Value Reference Range Interpretation Comments Hgb (test code = Hgb) 12.2 12.0-16.0 [facility] PasoRydhznkAGBVLJOXKY6693-13-22 10:11:18 Test Item Value Reference Range Interpretation Comments MCV (test code = MCV) 90.1 80.0-98.0 [facility] PasoSqyhlamKQSSLQPEMP5634-35-94 10:11:18 Test Item Value Reference Range Interpretation Comments Hct (test code = Hct) 36.2 36.0-48.0 [facility] PasoVgkkysrLHJCJSLGUI4985-33-08 10:11:18 Test Item Value Reference Range Interpretation Comments RBC (test code = RBC) 4.02 4.20-5.40 [facility] PasoBvqehlhTQQOFBLLFV1398-70-92 10:11:18 Test Item Value Reference Range Interpretation Comments WBC (test code = WBC) 10.1 3.7-10.4 [facility] PasoWnfwroqEDOEILRLBC0887-42-75 10:11:18 Test Item Value Reference Range Interpretation Comments PTT (test code = PTT) 35.5 s 22.9-35.8 [facility] PasoMuzqwrmHRBECTTCYS0187-61-21 10:11:18 Test Item Value Reference Range Interpretation Comments Eosinophils # (test code 0.2 See_Comment [A utomated message] The = Eosinophils #) system whic h generated this result tra nsmitted reference range : <=0.5. The reference r lily was not used to int erpret this result as normal/abnormal . [facility] PasoBddzcniWSAABFTRLY1841-55-88 10:11:18 Test Item Value Reference Range Interpretation Comments Monocytes (test code = Monocytes) 7.9 2.0-12.0 [facility] PasoJsaljyiGJQMBOYHUB6624-33-56 10:11:18 Test Item Value Reference Range Interpretation Comments Eosinophils (test code = 2.5 See_Comment [A utomated message] The Eosinophils) system which ge nerated this result tra nsmitted reference range : <=4.0. The reference r lily was not used to int erpret this result as normal/abnormal . [facility] PasoSyxdpdrAYRCYCVGGB8842-56-20 10:11:18 Test Item Value Reference Range Interpretation Comments Basophils # (test code 0.1 See_Comment [Aut omated message] The = Basophils #) system which generated this result tra nsmitted reference range : <=0.2. The reference r lily was not used to int erpret this result as normal/abnormal . [facility] PasoVgwkczmFTDJKXWJBQ1330-00-15 10:11:18 Test Item Value Reference Range Interpretation Comments Segs (test code = Segs) 65.1 45.0-75.0 [facility] PasoNzqctrwNKCSMCMVPK3892-96-66 10:11:18 Test Item Value Reference Range Interpretation Comments Lymphocytes (test code = Lymphocytes) 23.7 20.0-40.0 [facility] PasoAybohdrRIZWAITRAP5530-36-75 10:11:18 Test Item Value Reference Range Interpretation Comments Lymphocytes # (test code = Lymphocytes 2.4 1.0-5.5 #) [facility] PasoGjzqbxpUMHNZYCJEV5048-62-75 10:11:18 Test Item Value Reference Range Interpretation Comments Monocytes # (test code 0.8 See_Comment [Aut omated message] The = Monocytes #) system which generated this result tra nsmitted reference range : <=0.8. The reference r lily was not used to int erpret this result as normal/abnormal . [facility] PasoMkqsxjaPCIDJTPNRS3398-11-36 10:11:18 Test Item Value Reference Range Interpretation Comments Basophils (test code = 0.8 See_Comment [Aut omated message] The Basophils) system which ge nerated this result tra nsmitted reference range : <=1.0. The reference r lily was not used to int erpret this result as normal/abnormal . [facility] PasoVwclckmFJFUCOVIOW7267-86-77 10:11:18 Test Item Value Reference Range Interpretation Comments Segs-Bands # (test code = Segs-Bands #) 6.6 1.5-8.1 [facility]2016-07-16 10:11:18 Test Item Value Reference Range Interpretation Comments Lactic Acid WB (test code = Lactic Acid 1.3 0.5-2.2 WB) [facility] HospitalTpkqzkyFQKDESDMOMAW5296-18-08 10:11:18 Test Item Value Reference Range Interpretation Comments AGAP (test code = AGAP) 11.5 10.0-20.0 [facility] HospitalDnjvafmXMEJWLONBYSG0156-50-42 10:11:18 Test Item Value Reference Range Interpretation Comments eGFR (test code = eGFR) 87 [facility] HospitalWxfqozmXHNTVHREIYGU4528-44-57 10:11:18 Test Item Value Reference Range Interpretation Comments Glucose Lvl (test code = Glucose Lvl) 125 70-99 [facility] HospitalAqnntzuTMZIXCKKZGLU8490-22-90 10:11:18 Test Item Value Reference Range Interpretation Comments BUN (test code = BUN) 16 7-22 [facility] HospitalCzilwfgFLJCIGTHAIOQ7546-43-94 10:11:18 Test Item Value Reference Range Interpretation Comments Creatinine Lvl (test code = Creatinine 0.74 0.50-1.40 Lvl) [facility] HospitalWkqznflFENLYGINFITA8975-85-90 10:11:18 Test Item Value Reference Range Interpretation Comments Potassium Lvl (test code = Potassium 3.5 3.5-5.1 Lvl) [facility] HospitalCucofasVNTFDBYKVFLK7817-35-33 10:11:18 Test Item Value Reference Range Interpretation Comments Chloride Lvl (test code = Chloride Lvl) 104 95-109 [facility] HospitalJgjlbnyAAEGQGVFGNRG6544-24-55 10:11:18 Test Item Value Reference Range Interpretation Comments Sodium Lvl (test code = Sodium Lvl) 141 135-145 [facility] HospitalVikjrrhOZXBWMWIQBKE2500-91-21 10:11:18 Test Item Value Reference Range Interpretation Comments CO2 (test code = CO2) 29 24-32 [facility] HospitalVwrzoiaOFVYPTOABKTC4892-80-95 10:11:18 Test Item Value Reference Range Interpretation Comments Calcium Lvl (test code = Calcium Lvl) 9.4 8.5-10.5 [facility] PasoEjwrtueMTYKEAPDDW3655-77-37 10:11:18 Test Item Value Reference Range Interpretation Comments Estimated % Lysis Rapid 1.2 See_Comment [Au tomated message] The (test code = Estimated syste m which generated % Lysis Rapid) this result t ransmitted reference range : <=7.5. The reference r lily was not used to int erpret this result as normal/abnormal . [facility] PasoBxvepdwEAQVNATAOE0903-28-57 10:11:18 Test Item Value Reference Range Interpretation Comments K-time Rapid (test code = K-time 0.8 min 0.6-2.3 Rapid) [facility] PasoIgulkjoEZIXYJRNIK7985-98-10 10:11:18 Test Item Value Reference Range Interpretation Comments Split Point Rapid (test code = Split 0.4 min Point Rapid) [facility] PasoCghsnbgKVYIWHDFDD6327-78-00 10:11:18 Test Item Value Reference Range Interpretation Comments ACT (TEG) Rapid (test code = ACT (TEG) 97 s 86-118 Rapid) [facility] PasoLyqfssrCWLYKLGYFA6196-47-66 10:11:18 Test Item Value Reference Range Interpretation Comments R-time Rapid (test code = R-time 0.5 min 0.4-0.7 Rapid) [facility] PasoHgqplyyOARGDPZKGC4268-05-50 10:11:18 Test Item Value Reference Range Interpretation Comments G-value Rapid (test code = G-value 12.5 5.0-11.6 Rapid) [facility] PasoJvoqqhdZGNCQJYQOD8311-31-69 10:11:18 Test Item Value Reference Range Interpretation Comments Max Amplitude Rapid (test code = Max 72 mm 52-71 Amplitude Rapid) [facility] PasoEandwykMJXKECBFFX4092-09-80 10:11:18 Test Item Value Reference Range Interpretation Comments Angle Rapid (test code = Angle 79 degrees 64-80 Rapid) [facility] PasoAqqvhcdAIQYHALIIZ3248-00-34 10:11:18 Test Item Value Reference Range Interpretation Comments INR (test code = INR) 0.98 0.85-1.17 [facility] PasoGkvaurzTZAFPBOMCV4183-36-97 10:11:18 Test Item Value Reference Range Interpretation Comments PT (test code = PT) 13.3 s 12.0-14.7 [facility] PasoUmzfbpiOUFURAKJUQ8802-20-36 10:11:18 Test Item Value Reference Range Interpretation Comments MPV (test code = MPV) 10.4 7.4-10.4 [facility] PasoAoonarkSXJBZQASSW9127-76-69 10:11:18 Test Item Value Reference Range Interpretation Comments Platelet (test code = Platelet) 178 133-450 [facility] PasoTrdnrwrTWOKZWVSEW6502-72-23 10:11:18 Test Item Value Reference Range Interpretation Comments RDW (test code = RDW) 13.2 11.5-14.5 [facility] PasoRxgpuquETUHPCJWEQ7183-02-85 10:11:18 Test Item Value Reference Range Interpretation Comments MCH (test code = MCH) 30.4 pg 27.0-31.0 [facility] PasoFelkjawKZWLNLSACO4799-66-89 10:11:18 Test Item Value Reference Range Interpretation Comments MCHC (test code = MCHC) 33.7 32.0-36.0 [facility] PasoEzvgwymKEGVNQGBSM4827-66-11 10:11:18 Test Item Value Reference Range Interpretation Comments Hgb (test code = Hgb) 12.2 12.0-16.0 [facility] PasoAkvwzitQNAQZDRQEZ2583-22-44 10:11:18 Test Item Value Reference Range Interpretation Comments MCV (test code = MCV) 90.1 80.0-98.0 [facility] PasoMvcsuinEQQGBHCWXF0799-62-74 10:11:18 Test Item Value Reference Range Interpretation Comments Hct (test code = Hct) 36.2 36.0-48.0 [facility] PasoMsizrfwGGABFQORVP6915-70-99 10:11:18 Test Item Value Reference Range Interpretation Comments RBC (test code = RBC) 4.02 4.20-5.40 [facility] PasoMimrjfyZSHZSVQQPZ3048-42-51 10:11:18 Test Item Value Reference Range Interpretation Comments WBC (test code = WBC) 10.1 3.7-10.4 [facility] PasoIwwdtcnKLSEIHKDQC6980-19-12 10:11:18 Test Item Value Reference Range Interpretation Comments PTT (test code = PTT) 35.5 s 22.9-35.8 [facility] PasoEskasraVHYSFNCSIR4307-02-76 10:11:18 Test Item Value Reference Range Interpretation Comments Eosinophils # (test code 0.2 See_Comment [A utomated message] The = Eosinophils #) system whic h generated this result tra nsmitted reference range : <=0.5. The reference r lily was not used to int erpret this result as normal/abnormal . [facility] PasoUnnyvyqIBMBGRMHGY5251-85-26 10:11:18 Test Item Value Reference Range Interpretation Comments Monocytes (test code = Monocytes) 7.9 2.0-12.0 [facility] PasoQmqsuwrABCTPPTYTI8223-74-90 10:11:18 Test Item Value Reference Range Interpretation Comments Eosinophils (test code = 2.5 See_Comment [A utomated message] The Eosinophils) system which ge nerated this result tra nsmitted reference range : <=4.0. The reference r lily was not used to int erpret this result as normal/abnormal . [facility] PasoFxfmecbYSHXIZXOSM4194-86-97 10:11:18 Test Item Value Reference Range Interpretation Comments Basophils # (test code 0.1 See_Comment [Aut omated message] The = Basophils #) system which generated this result tra nsmitted reference range : <=0.2. The reference r lily was not used to int erpret this result as normal/abnormal . [facility] PasoIlggyxbQUHKEHIAOY7409-30-22 10:11:18 Test Item Value Reference Range Interpretation Comments Segs (test code = Segs) 65.1 45.0-75.0 [facility] PasoNaztetcAWCFSRPTDS2824-91-68 10:11:18 Test Item Value Reference Range Interpretation Comments Lymphocytes (test code = Lymphocytes) 23.7 20.0-40.0 [facility] PasoBrgdkmeHIVPPDSLUD6113-84-33 10:11:18 Test Item Value Reference Range Interpretation Comments Lymphocytes # (test code = Lymphocytes 2.4 1.0-5.5 #) [facility] PasoFouepecQVWMOEZZLM3706-59-18 10:11:18 Test Item Value Reference Range Interpretation Comments Monocytes # (test code 0.8 See_Comment [Aut omated message] The = Monocytes #) system which generated this result tra nsmitted reference range : <=0.8. The reference r lily was not used to int erpret this result as normal/abnormal . [facility] PasoYxxjrdjCZEVSVIPFP4309-57-69 10:11:18 Test Item Value Reference Range Interpretation Comments Basophils (test code = 0.8 See_Comment [Aut omated message] The Basophils) system which ge nerated this result tra nsmitted reference range : <=1.0. The reference r lily was not used to int erpret this result as normal/abnormal . [facility] PasoXjsxwekSOZWVPTUZW3365-35-10 10:11:18 Test Item Value Reference Range Interpretation Comments Segs-Bands # (test code = Segs-Bands #) 6.6 1.5-8.1 [facility]2016-07-16 10:11:18 Test Item Value Reference Range Interpretation Comments Lactic Acid WB (test code = Lactic Acid 1.3 0.5-2.2 WB) [facility] HospitalIqwusheYSZEALKYNUDM3050-47-57 10:11:18 Test Item Value Reference Range Interpretation Comments AGAP (test code = AGAP) 11.5 10.0-20.0 [facility] HospitalPdmvcewMZWVLRLALYMU3110-25-08 10:11:18 Test Item Value Reference Range Interpretation Comments eGFR (test code = eGFR) 87 [facility] HospitalQlbqiyxDMVEACBVVMJA6838-40-74 10:11:18 Test Item Value Reference Range Interpretation Comments Glucose Lvl (test code = Glucose Lvl) 125 70-99 [facility] HospitalYglsqduBLTYZKFKCDKM9789-80-99 10:11:18 Test Item Value Reference Range Interpretation Comments BUN (test code = BUN) 16 7-22 [facility] HospitalVcxcxycMXSODAPQNZPT0111-24-10 10:11:18 Test Item Value Reference Range Interpretation Comments Creatinine Lvl (test code = Creatinine 0.74 0.50-1.40 Lvl) [facility] HospitalWberyrqVMFADQLRDCDF8370-10-26 10:11:18 Test Item Value Reference Range Interpretation Comments Potassium Lvl (test code = Potassium 3.5 3.5-5.1 Lvl) [facility] HospitalLunkdpwYTDVBUGVUMCP8758-25-02 10:11:18 Test Item Value Reference Range Interpretation Comments Chloride Lvl (test code = Chloride Lvl) 104 95-109 [facility] HospitalOihupqhZIWRTEQBAWNU8291-62-13 10:11:18 Test Item Value Reference Range Interpretation Comments Sodium Lvl (test code = Sodium Lvl) 141 135-145 [facility] HospitalXeywmxzBXOIOLTTMBUO4967-67-47 10:11:18 Test Item Value Reference Range Interpretation Comments CO2 (test code = CO2) 29 24-32 [facility]ownDuqlxamUKZDFAJUNCRK5942-59-41 10:11:18 Test Item Value Reference Range Interpretation Comments Calcium Lvl (test code = Calcium Lvl) 9.4 8.5-10.5 [facility] PasoSilzkskMLJACZKXOY6171-57-11 10:11:18 Test Item Value Reference Range Interpretation Comments Estimated % Lysis Rapid 1.2 See_Comment [Au tomated message] The (test code = Estimated syste m which generated % Lysis Rapid) this result t ransmitted reference range : <=7.5. The reference r lily was not used to int erpret this result as normal/abnormal . [facility] PasoFjozpolSTOLXWSGLN7901-57-81 10:11:18 Test Item Value Reference Range Interpretation Comments K-time Rapid (test code = K-time 0.8 min 0.6-2.3 Rapid) [facility] PasoUorrtkuGAIYOYBFHR5059-26-67 10:11:18 Test Item Value Reference Range Interpretation Comments Split Point Rapid (test code = Split 0.4 min Point Rapid) [facility] PasoYrmzionRYDVXARFEH9951-88-39 10:11:18 Test Item Value Reference Range Interpretation Comments ACT (TEG) Rapid (test code = ACT (TEG) 97 s 86-118 Rapid) [facility] PasoZjvikyzPKQRKLUXRT9052-37-06 10:11:18 Test Item Value Reference Range Interpretation Comments R-time Rapid (test code = R-time 0.5 min 0.4-0.7 Rapid) [facility] PasoAsgfcpwKNEHEORBSQ6972-32-11 10:11:18 Test Item Value Reference Range Interpretation Comments G-value Rapid (test code = G-value 12.5 5.0-11.6 Rapid) [facility] PasoHcpepilWQUVMCQVTW3124-84-69 10:11:18 Test Item Value Reference Range Interpretation Comments Max Amplitude Rapid (test code = Max 72 mm 52-71 Amplitude Rapid) [facility] PasoBicoggtEEHDYOLJPJ9644-39-67 10:11:18 Test Item Value Reference Range Interpretation Comments Angle Rapid (test code = Angle 79 degrees 64-80 Rapid) [facility] PasoQcabdcgSZYCMHEVYR2799-37-05 10:11:18 Test Item Value Reference Range Interpretation Comments INR (test code = INR) 0.98 0.85-1.17 [facility] PasoKlqmzinLHTSACVDPR2017-14-36 10:11:18 Test Item Value Reference Range Interpretation Comments PT (test code = PT) 13.3 s 12.0-14.7 [facility] PasoXkzegcfBAETOIRVUA5235-34-27 10:11:18 Test Item Value Reference Range Interpretation Comments MPV (test code = MPV) 10.4 7.4-10.4 [facility] PasoSzckklrYWDHLAWWZO0713-16-51 10:11:18 Test Item Value Reference Range Interpretation Comments Platelet (test code = Platelet) 178 133-450 [facility] PasoUtvcbrpYAMVZMKOCY8085-15-64 10:11:18 Test Item Value Reference Range Interpretation Comments RDW (test code = RDW) 13.2 11.5-14.5 [facility] PasoWjndoilWZQIOAJMDO3670-01-16 10:11:18 Test Item Value Reference Range Interpretation Comments MCH (test code = MCH) 30.4 pg 27.0-31.0 [facility] PasoWiquuncRSPLYPJOPI8933-23-25 10:11:18 Test Item Value Reference Range Interpretation Comments MCHC (test code = MCHC) 33.7 32.0-36.0 [facility] PasoSdfzhssHOORWJLDVJ0853-78-97 10:11:18 Test Item Value Reference Range Interpretation Comments Hgb (test code = Hgb) 12.2 12.0-16.0 [facility] PasoEdfyhmvCCIHXTJXCR7699-62-69 10:11:18 Test Item Value Reference Range Interpretation Comments MCV (test code = MCV) 90.1 80.0-98.0 [facility] PasoFvajhskJHOHLEEJQA8275-48-00 10:11:18 Test Item Value Reference Range Interpretation Comments Hct (test code = Hct) 36.2 36.0-48.0 [facility] PasoUsummplRBJKKZTBYU9576-20-93 10:11:18 Test Item Value Reference Range Interpretation Comments RBC (test code = RBC) 4.02 4.20-5.40 [facility] PasoQflrtpaDXCMZMTDPQ0050-74-81 10:11:18 Test Item Value Reference Range Interpretation Comments WBC (test code = WBC) 10.1 3.7-10.4 [facility] PasoFneqngxLVSLRWKEUJ1050-91-72 10:11:18 Test Item Value Reference Range Interpretation Comments PTT (test code = PTT) 35.5 s 22.9-35.8 [facility] PasoHltomnzMKGJPOROQP9663-46-88 10:11:18 Test Item Value Reference Range Interpretation Comments Eosinophils # (test code 0.2 See_Comment [A utomated message] The = Eosinophils #) system whic h generated this result tra nsmitted reference range : <=0.5. The reference r lily was not used to int erpret this result as normal/abnormal . [facility] PasoSkfngmzNVVNTNZLWN0418-13-06 10:11:18 Test Item Value Reference Range Interpretation Comments Monocytes (test code = Monocytes) 7.9 2.0-12.0 [facility] PasoQnnyvjeJBVJTSOELX9269-78-74 10:11:18 Test Item Value Reference Range Interpretation Comments Eosinophils (test code = 2.5 See_Comment [A utomated message] The Eosinophils) system which ge nerated this result tra nsmitted reference range : <=4.0. The reference r lily was not used to int erpret this result as normal/abnormal . [facility] PasoVkyerdfHLLQOEHQJK7381-39-86 10:11:18 Test Item Value Reference Range Interpretation Comments Basophils # (test code 0.1 See_Comment [Aut omated message] The = Basophils #) system which generated this result tra nsmitted reference range : <=0.2. The reference r lily was not used to int erpret this result as normal/abnormal . [facility] PasoDbkzwiuKANIEHECXJ8508-77-44 10:11:18 Test Item Value Reference Range Interpretation Comments Segs (test code = Segs) 65.1 45.0-75.0 [facility] PasoGsydmeeJPCOKZSGNJ4069-49-04 10:11:18 Test Item Value Reference Range Interpretation Comments Lymphocytes (test code = Lymphocytes) 23.7 20.0-40.0 [facility] PasoHflrgmjQIATEITEIA6155-11-21 10:11:18 Test Item Value Reference Range Interpretation Comments Lymphocytes # (test code = Lymphocytes 2.4 1.0-5.5 #) [facility] PasoHsmenzvVPWSLFHFVD3214-07-11 10:11:18 Test Item Value Reference Range Interpretation Comments Monocytes # (test code 0.8 See_Comment [Aut omated message] The = Monocytes #) system which generated this result tra nsmitted reference range : <=0.8. The reference r lily was not used to int erpret this result as normal/abnormal . [facility] PasoXqsusshXDPDIDSKNO0090-15-71 10:11:18 Test Item Value Reference Range Interpretation Comments Basophils (test code = 0.8 See_Comment [Aut omated message] The Basophils) system which ge nerated this result tra nsmitted reference range : <=1.0. The reference r lily was not used to int erpret this result as normal/abnormal . [facility] PasoKznwbrgMHYYINGKCR6199-23-92 10:11:18 Test Item Value Reference Range Interpretation Comments Segs-Bands # (test code = Segs-Bands #) 6.6 1.5-8.1 [facility]CHE[facility] CPXAO7273-46-82 10:11:18 Test Item Value Reference Range Interpretation Comments Lactic Acid WB (test code = Lactic Acid 1.3 0.5-2.2 WB) [facility] HospitalYuzljnzDFHJIXJUYAMH8996-08-71 10:11:18 Test Item Value Reference Range Interpretation Comments AGAP (test code = AGAP) 11.5 10.0-20.0 [facility] HospitalYcvnodiFVVBHRXIGZDW5137-09-79 10:11:18 Test Item Value Reference Range Interpretation Comments eGFR (test code = eGFR) 87 [facility] HospitalKmbkhogPCMIXXXQFEOA7091-75-86 10:11:18 Test Item Value Reference Range Interpretation Comments Glucose Lvl (test code = Glucose Lvl) 125 70-99 [facility] HospitalDxsjpyoJYTDQXXVFUSC9829-47-35 10:11:18 Test Item Value Reference Range Interpretation Comments BUN (test code = BUN) 16 7-22 [facility] HospitalTkwhocmBJNECNFVPJER2078-46-01 10:11:18 Test Item Value Reference Range Interpretation Comments Creatinine Lvl (test code = Creatinine 0.74 0.50-1.40 Lvl) [facility] HospitalJksihbyTUDVBIJGYIQX3436-59-36 10:11:18 Test Item Value Reference Range Interpretation Comments Potassium Lvl (test code = Potassium 3.5 3.5-5.1 Lvl) [facility] HospitalQbzutqdUVWEEKGFHUIF5109-75-23 10:11:18 Test Item Value Reference Range Interpretation Comments Chloride Lvl (test code = Chloride Lvl) 104 95-109 [facility] HospitalJntkoyqCFZWQNFGSVYN3785-49-81 10:11:18 Test Item Value Reference Range Interpretation Comments Sodium Lvl (test code = Sodium Lvl) 141 135-145 [facility] HospitalMhrtvdaAXDTHPMLQUQX7125-03-14 10:11:18 Test Item Value Reference Range Interpretation Comments CO2 (test code = CO2) 29 24-32 [facility] HospitalWpyukspGGBWREHNSCWP2172-73-59 10:11:18 Test Item Value Reference Range Interpretation Comments Calcium Lvl (test code = Calcium Lvl) 9.4 8.5-10.5 [facility] PasoObsbdgnHBKOCALTBU2477-91-54 10:11:18 Test Item Value Reference Range Interpretation Comments Estimated % Lysis Rapid 1.2 See_Comment [Au tomated message] The (test code = Estimated syste m which generated % Lysis Rapid) this result t ransmitted reference range : <=7.5. The reference r lily was not used to int erpret this result as normal/abnormal . [facility] PasoNewbszoBFODYHODWY3891-65-88 10:11:18 Test Item Value Reference Range Interpretation Comments K-time Rapid (test code = K-time 0.8 min 0.6-2.3 Rapid) [facility] PasoDslvrczSKSXEYCPTF3864-82-66 10:11:18 Test Item Value Reference Range Interpretation Comments Split Point Rapid (test code = Split 0.4 min Point Rapid) [facility]QgtncpvEAEJMVKLGA0308-65-19 10:11:18 Test Item Value Reference Range Interpretation Comments ACT (TEG) Rapid (test code = ACT (TEG) 97 s 86-118 Rapid) [facility] PasoKvmgyqfLIKLNCAWZI3775-99-40 10:11:18 Test Item Value Reference Range Interpretation Comments R-time Rapid (test code = R-time 0.5 min 0.4-0.7 Rapid) [facility] PasoFogttcnCPBNYQXRVN9598-56-99 10:11:18 Test Item Value Reference Range Interpretation Comments G-value Rapid (test code = G-value 12.5 5.0-11.6 Rapid) [facility] PasoMnidyovOPDJDTGCPZ1877-55-25 10:11:18 Test Item Value Reference Range Interpretation Comments Max Amplitude Rapid (test code = Max 72 mm 52-71 Amplitude Rapid) [facility] PasoNekwvumITNWLONEQC1301-57-05 10:11:18 Test Item Value Reference Range Interpretation Comments Angle Rapid (test code = Angle 79 degrees 64-80 Rapid) [facility] PasoEhiqiqkLFJSLHZPUU9463-25-10 10:11:18 Test Item Value Reference Range Interpretation Comments INR (test code = INR) 0.98 0.85-1.17 [facility] PasoOgmuaavDKYUZBOYSM2849-25-58 10:11:18 Test Item Value Reference Range Interpretation Comments PT (test code = PT) 13.3 s 12.0-14.7 [facility] PasoDfqpdtrAUSXMNHSPE0348-31-98 10:11:18 Test Item Value Reference Range Interpretation Comments MPV (test code = MPV) 10.4 7.4-10.4 [facility] PasoSqcbsxzTICJDCRRZY9123-07-48 10:11:18 Test Item Value Reference Range Interpretation Comments Platelet (test code = Platelet) 178 133-450 [facility] PasoAquchpyKIWJQHCWLP3946-11-27 10:11:18 Test Item Value Reference Range Interpretation Comments RDW (test code = RDW) 13.2 11.5-14.5 [facility] PasoVrdvbreHKVOKLYETZ3954-64-33 10:11:18 Test Item Value Reference Range Interpretation Comments MCH (test code = MCH) 30.4 pg 27.0-31.0 [facility] PasoIxpyrtpDXHWIHSYBT4679-35-05 10:11:18 Test Item Value Reference Range Interpretation Comments MCHC (test code = MCHC) 33.7 32.0-36.0 [facility] PasoRwatnvyUSBZFLBATU9263-78-44 10:11:18 Test Item Value Reference Range Interpretation Comments Hgb (test code = Hgb) 12.2 12.0-16.0 [facility] PasoFkkbxznWFSXIELPJF0435-73-33 10:11:18 Test Item Value Reference Range Interpretation Comments MCV (test code = MCV) 90.1 80.0-98.0 [facility] PasoHcuwkduHPGBWDLRQQ3672-95-88 10:11:18 Test Item Value Reference Range Interpretation Comments Hct (test code = Hct) 36.2 36.0-48.0 [facility] PasoRepszdqPEGYMXIAIR1418-31-23 10:11:18 Test Item Value Reference Range Interpretation Comments RBC (test code = RBC) 4.02 4.20-5.40 [facility] PasoYzvmblqQNAFAYWJFI8266-12-59 10:11:18 Test Item Value Reference Range Interpretation Comments WBC (test code = WBC) 10.1 3.7-10.4 [facility] PasoOukzklrMJQQRYOKSF3040-23-29 10:11:18 Test Item Value Reference Range Interpretation Comments PTT (test code = PTT) 35.5 s 22.9-35.8 [facility] PasoQutwxxhTKVVMOSROD3960-45-03 10:11:18 Test Item Value Reference Range Interpretation Comments Eosinophils # (test code 0.2 See_Comment [A utomated message] The = Eosinophils #) system [facility] h generated this result tra nsmitted reference range : <=0.5. The reference r lily was not used to int erpret this result as normal/abnormal . [facility] PasoGnhmbryXMCULQXCOU4149-83-83 10:11:18 Test Item Value Reference Range Interpretation Comments Monocytes (test code = Monocytes) 7.9 2.0-12.0 [facility] PasoHlgfiltWOSXUIGXNE2788-78-51 10:11:18 Test Item Value Reference Range Interpretation Comments Eosinophils (test code = 2.5 See_Comment [A utomated message] The Eosinophils) system which ge nerated this result tra nsmitted reference range : <=4.0. The reference r lily was not used to int erpret this result as normal/abnormal . [facility] PasoXhxfifiDTLWDERXMM0436-92-27 10:11:18 Test Item Value Reference Range Interpretation Comments Basophils # (test code 0.1 See_Comment [Aut omated message] The = Basophils #) system which generated this result tra nsmitted reference range : <=0.2. The reference r lily was not used to int erpret this result as normal/abnormal . [facility] PasoFwawgvsTICNEQEZOG8701-00-90 10:11:18 Test Item Value Reference Range Interpretation Comments Segs (test code = Segs) 65.1 45.0-75.0 [facility] PasoUylqovkGHBZAMJGDZ1618-35-85 10:11:18 Test Item Value Reference Range Interpretation Comments Lymphocytes (test code = Lymphocytes) 23.7 20.0-40.0 [facility] PasoSukvzjsUVKGLGTQGU1360-18-39 10:11:18 Test Item Value Reference Range Interpretation Comments Lymphocytes # (test code = Lymphocytes 2.4 1.0-5.5 #) [facility] PasoUklhxuuOFKUPXQLTA9138-15-35 10:11:18 Test Item Value Reference Range Interpretation Comments Monocytes # (test code 0.8 See_Comment [Aut omated message] The = Monocytes #) system which generated this result tra nsmitted reference range : <=0.8. The reference r lily was not used to int erpret this result as normal/abnormal . [facility] PasoSphzemcTMEDQBYQNV3779-07-52 10:11:18 Test Item Value Reference Range Interpretation Comments Basophils (test code = 0.8 See_Comment [Aut omated message] The Basophils) system which ge nerated this result tra nsmitted reference range : <=1.0. The reference r lily was not used to int erpret this result as normal/abnormal . [facility] CampusAiqnhduUFVXQTJPOO7104-20-59 10:11:18 Test Item Value Reference Range Interpretation Comments Segs-Bands # (test code = Segs-Bands #) 6.6 1.5-8.1 [facility] CampusCHEM KDGQX4007-94-57 10:11:18 Test Item Value Reference Range Interpretation Comments Lactic Acid WB (test code = Lactic Acid 1.3 0.5-2.2 WB) [facility] HospitalOgrysjyETQPXFMYJJCZ4626-81-78 10:11:18 Test Item Value Reference Range Interpretation Comments AGAP (test code = AGAP) 11.5 10.0-20.0 [facility] HospitalBpotltpITPFXGEXAVAG2752-18-25 10:11:18 Test Item Value Reference Range Interpretation Comments eGFR (test code = eGFR) 87 [facility] HospitalQresrawHLFWAWMFNSWK6148-43-10 10:11:18 Test Item Value Reference Range Interpretation Comments Glucose Lvl (test code = Glucose Lvl) 125 70-99 [facility] HospitalRmgodtmLNTXZGPMYSHK9878-31-08 10:11:18 Test Item Value Reference Range Interpretation Comments BUN (test code = BUN) 16 7-22 [facility] HospitalFwwoslsFPYKXTEFYVSY3072-39-65 10:11:18 Test Item Value Reference Range Interpretation Comments Creatinine Lvl (test code = Creatinine 0.74 0.50-1.40 Lvl) [facility] HospitalHstxbspCDOIEFWVULUA3176-27-46 10:11:18 Test Item Value Reference Range Interpretation Comments Potassium Lvl (test code = Potassium 3.5 3.5-5.1 Lvl) [facility] HospitalVguvcifOXVAMQATPLEE4676-55-50 10:11:18 Test Item Value Reference Range Interpretation Comments Chloride Lvl (test code = Chloride Lvl) 104 95-109 [facility] HospitalJmeqltrMHDOBJOOBRYI9432-05-86 10:11:18 Test Item Value Reference Range Interpretation Comments Sodium Lvl (test code = Sodium Lvl) 141 135-145 [facility] HospitalUzgdziuKXHLTWPIRXQY9592-47-57 10:11:18 Test Item Value Reference Range Interpretation Comments CO2 (test code = CO2) 29 24-32 [facility] HospitalIyzvajxPHDJRFQXIQGY8328-39-57 10:11:18 Test Item Value Reference Range Interpretation Comments Calcium Lvl (test code = Calcium Lvl) 9.4 8.5-10.5 [facility] PasoJbsijgnXPEDBKIMUP1927-89-19 10:11:18 Test Item Value Reference Range Interpretation Comments Estimated % Lysis Rapid 1.2 See_Comment [Au tomated message] The (test code = Estimated syste m which generated % Lysis Rapid) this result t ransmitted reference range : <=7.5. The reference r lily was not used to int erpret this result as normal/abnormal . [facility] PasoXfvgkwzZXVRZIGIQI8281-72-23 10:11:18 Test Item Value Reference Range Interpretation Comments K-time Rapid (test code = K-time 0.8 min 0.6-2.3 Rapid) [facility] PasoXzdunmeCPHAKPXFSB2859-92-36 10:11:18 Test Item Value Reference Range Interpretation Comments Split Point Rapid (test code = Split 0.4 min Point Rapid) [facility] PasoCutlhewEKDLVDAJOX8835-14-07 10:11:18 Test Item Value Reference Range Interpretation Comments ACT (TEG) Rapid (test code = ACT (TEG) 97 s 86-118 Rapid) [facility] PasoYxzfthtHVDTYELFTW5951-11-78 10:11:18 Test Item Value Reference Range Interpretation Comments R-time Rapid (test code = R-time 0.5 min 0.4-0.7 Rapid) [facility] PasoFnvrlyxCYBLXLBZVZ9315-05-16 10:11:18 Test Item Value Reference Range Interpretation Comments G-value Rapid (test code = G-value 12.5 5.0-11.6 Rapid) [facility] PasoIzkdcofRQPPIVJBQI7754-43-62 10:11:18 Test Item Value Reference Range Interpretation Comments Max Amplitude Rapid (test code = Max 72 mm 52-71 Amplitude Rapid) [facility] PasoPjxzaxuIDJGJTOTCX5181-69-00 10:11:18 Test Item Value Reference Range Interpretation Comments Angle Rapid (test code = Angle 79 degrees 64-80 Rapid) [facility] PasoQcjmmekFDCNETNWXY7313-68-84 10:11:18 Test Item Value Reference Range Interpretation Comments INR (test code = INR) 0.98 0.85-1.17 [facility] PasoIuruvdzMYJURDMHNH7794-75-02 10:11:18 Test Item Value Reference Range Interpretation Comments PT (test code = PT) 13.3 s 12.0-14.7 [facility] PasoCsbpztdWRTPPRJTRZ2430-15-21 10:11:18 Test Item Value Reference Range Interpretation Comments MPV (test code = MPV) 10.4 7.4-10.4 [facility] PasoMbrxbryEMENBOVRNS9801-05-19 10:11:18 Test Item Value Reference Range Interpretation Comments Platelet (test code = Platelet) 178 133-450 [facility] PasoTuhoarjMSOTXXKCIG6220-77-10 10:11:18 Test Item Value Reference Range Interpretation Comments RDW (test code = RDW) 13.2 11.5-14.5 [facility] PasoIjzhaifZXPORSWQTC3201-79-92 10:11:18 Test Item Value Reference Range Interpretation Comments MCH (test code = MCH) 30.4 pg 27.0-31.0 [facility] PasoAqyfmaeJKDBPLACRS0162-43-03 10:11:18 Test Item Value Reference Range Interpretation Comments MCHC (test code = MCHC) 33.7 32.0-36.0 [facility] PasoRlushstKLIBVHFESR1804-77-16 10:11:18 Test Item Value Reference Range Interpretation Comments Hgb (test code = Hgb) 12.2 12.0-16.0 [facility] PasoNhtrqomKYXQQIXRTO4620-73-89 10:11:18 Test Item Value Reference Range Interpretation Comments MCV (test code = MCV) 90.1 80.0-98.0 [facility] PasoNvugcxyBRYESUUHOT2361-85-85 10:11:18 Test Item Value Reference Range Interpretation Comments Hct (test code = Hct) 36.2 36.0-48.0 [facility] PasoDlfrqvxQUKCPJSCMU3242-28-27 10:11:18 Test Item Value Reference Range Interpretation Comments RBC (test code = RBC) 4.02 4.20-5.40 [facility] PasoCadanilAYVYACKNCN7030-07-00 10:11:18 Test Item Value Reference Range Interpretation Comments WBC (test code = WBC) 10.1 3.7-10.4 [facility] PasoQwsozsyOAEMGPPACZ7993-71-52 10:11:18 Test Item Value Reference Range Interpretation Comments PTT (test code = PTT) 35.5 s 22.9-35.8 [facility] PasoGzjokkiWUIUYUOZAU3647-91-16 10:11:18 Test Item Value Reference Range Interpretation Comments Eosinophils # (test code 0.2 See_Comment [A utomated message] The = Eosinophils #) system whic h generated this result tra nsmitted reference range : <=0.5. The reference r lily was not used to int erpret this result as normal/abnormal . [facility] PasoTzmgypmTNACATUREN1223-81-98 10:11:18 Test Item Value Reference Range Interpretation Comments Monocytes (test code = Monocytes) 7.9 2.0-12.0 [facility] PasoQvzyywfOXDEQCXJPI4148-23-48 10:11:18 Test Item Value Reference Range Interpretation Comments Eosinophils (test code = 2.5 See_Comment [A utomated message] The Eosinophils) system which ge nerated this result tra nsmitted reference range : <=4.0. The reference r lily was not used to int erpret this result as normal/abnormal . [facility] PasoWilxfogNDKSMVSMYD6292-00-40 10:11:18 Test Item Value Reference Range Interpretation Comments Basophils # (test code 0.1 See_Comment [Aut omated message] The = Basophils #) system which generated this result tra nsmitted reference range : <=0.2. The reference r lily was not used to int erpret this result as normal/abnormal . [facility] PasoRdqgvsePYYBETGDGM4716-40-24 10:11:18 Test Item Value Reference Range Interpretation Comments Segs (test code = Segs) 65.1 45.0-75.0 [facility] PasoJmsdrylOKFDAAMJHQ4995-38-01 10:11:18 Test Item Value Reference Range Interpretation Comments Lymphocytes (test code = Lymphocytes) 23.7 20.0-40.0 [facility] PasoOkjwexyCIJGPNBIYC7163-04-54 10:11:18 Test Item Value Reference Range Interpretation Comments Lymphocytes # (test code = Lymphocytes 2.4 1.0-5.5 #) [facility] PasoWmlmoysZLOOFOCNXE3958-10-75 10:11:18 Test Item Value Reference Range Interpretation Comments Monocytes # (test code 0.8 See_Comment [Aut omated message] The = Monocytes #) system which generated this result tra nsmitted reference range : <=0.8. The reference r lily was not used to int erpret this result as normal/abnormal . [facility] PasoQmbwbydPLXLWMGKCP7279-79-06 10:11:18 Test Item Value Reference Range Interpretation Comments Basophils (test code = 0.8 See_Comment [Aut omated message] The Basophils) system which ge nerated this result tra nsmitted reference range : <=1.0. The reference r lily was not used to int erpret this result as normal/abnormal . [facility] PasoCmmtzwyJRESFKJCTI7691-71-20 10:11:18 Test Item Value Reference Range Interpretation Comments Segs-Bands # (test code = Segs-Bands #) 6.6 1.5-8.1 [facility]2016-07-16 10:11:18 Test Item Value Reference Range Interpretation Comments Lactic Acid WB (test code = Lactic Acid 1.3 0.5-2.2 WB) [facility] HospitalSppjlwrRIJZYMNZIQQJ5075-85-16 10:11:18 Test Item Value Reference Range Interpretation Comments AGAP (test code = AGAP) 11.5 10.0-20.0 [facility] HospitalHfxvkzeBTMHIPIULBJM8373-95-78 10:11:18 Test Item Value Reference Range Interpretation Comments eGFR (test code = eGFR) 87 [facility] HospitalBqnbxouOFGOQYXVVSLE9640-27-08 10:11:18 Test Item Value Reference Range Interpretation Comments Glucose Lvl (test code = Glucose Lvl) 125 70-99 [facility] HospitalRyubgznLVZQYLGJYXPZ3356-45-81 10:11:18 Test Item Value Reference Range Interpretation Comments BUN (test code = BUN) 16 7-22 [facility] HospitalPbnreujIDDGMFZSALCU9229-77-75 10:11:18 Test Item Value Reference Range Interpretation Comments Creatinine Lvl (test code = Creatinine 0.74 0.50-1.40 Lvl) [facility] HospitalOmhuzcjUJDCBFXGBIDB5441-60-37 10:11:18 Test Item Value Reference Range Interpretation Comments Potassium Lvl (test code = Potassium 3.5 3.5-5.1 Lvl) [facility] HospitalXrksnzxYVMLJJECRSCO4473-29-67 10:11:18 Test Item Value Reference Range Interpretation Comments Chloride Lvl (test code = Chloride Lvl) 104 95-109 [facility] HospitalKclpuvoDTUBTWYFZQJI4778-52-82 10:11:18 Test Item Value Reference Range Interpretation Comments Sodium Lvl (test code = Sodium Lvl) 141 135-145 [facility] HospitalPxmqwatTKEGIKOITIHB4902-54-88 10:11:18 Test Item Value Reference Range Interpretation Comments CO2 (test code = CO2) 29 24-32 [facility] HospitalDiftnbyRZLLJVHICRRX2117-38-36 10:11:18 Test Item Value Reference Range Interpretation Comments Calcium Lvl (test code = Calcium Lvl) 9.4 8.5-10.5 [facility] PasoYqranjhBZAZFDITCJ1764-59-32 10:11:18 Test Item Value Reference Range Interpretation Comments Estimated % Lysis Rapid 1.2 See_Comment [Au tomated message] The (test code = Estimated syste m which generated % Lysis Rapid) this result t ransmitted reference range : <=7.5. The reference r lily was not used to int erpret this result as normal/abnormal . [facility] PasoRrestjrWOJEQSXMGE0719-36-18 10:11:18 Test Item Value Reference Range Interpretation Comments K-time Rapid (test code = K-time 0.8 min 0.6-2.3 Rapid) [facility] PasoRsuoypwEDQCEZCUMA6971-69-03 10:11:18 Test Item Value Reference Range Interpretation Comments Split Point Rapid (test code = Split 0.4 min Point Rapid) [facility] PasoVlhixbaDMRMBIQNYS4886-29-31 10:11:18 Test Item Value Reference Range Interpretation Comments ACT (TEG) Rapid (test code = ACT (TEG) 97 s 86-118 Rapid) [facility] PasoZuamgdmVEVIUCSNRJ0042-80-45 10:11:18 Test Item Value Reference Range Interpretation Comments R-time Rapid (test code = R-time 0.5 min 0.4-0.7 Rapid) [facility] PasoXpeehmwZLKZZGPDPO9053-21-45 10:11:18 Test Item Value Reference Range Interpretation Comments G-value Rapid (test code = G-value 12.5 5.0-11.6 Rapid) [facility] PasoXmzsvobFHCKNODRSH1652-86-79 10:11:18 Test Item Value Reference Range Interpretation Comments Max Amplitude Rapid (test code = Max 72 mm 52-71 Amplitude Rapid) [facility] PasoEnmmdcvCOXGOXTNAX7540-14-58 10:11:18 Test Item Value Reference Range Interpretation Comments Angle Rapid (test code = Angle 79 degrees 64-80 Rapid) [facility] PasoQunhgtsOBWVJWNACL4245-25-00 10:11:18 Test Item Value Reference Range Interpretation Comments INR (test code = INR) 0.98 0.85-1.17 [facility] PasoNmopzwjQIPESYGGED9146-79-92 10:11:18 Test Item Value Reference Range Interpretation Comments PT (test code = PT) 13.3 s 12.0-14.7 [facility] PasoWcfcfxtDRLIKSJUBZ9866-18-88 10:11:18 Test Item Value Reference Range Interpretation Comments MPV (test code = MPV) 10.4 7.4-10.4 [facility] PasoModunbzIVTIWAAEGF6833-79-47 10:11:18 Test Item Value Reference Range Interpretation Comments Platelet (test code = Platelet) 178 133-450 [facility] PasoTqmoysbQXLBTYWORH2172-27-11 10:11:18 Test Item Value Reference Range Interpretation Comments RDW (test code = RDW) 13.2 11.5-14.5 [facility] PasoOerdwvpPZGHWTJZIR9459-67-00 10:11:18 Test Item Value Reference Range Interpretation Comments MCH (test code = MCH) 30.4 pg 27.0-31.0 [facility] PasoWhuktclCOGGAECVAK1767-47-98 10:11:18 Test Item Value Reference Range Interpretation Comments MCHC (test code = MCHC) 33.7 32.0-36.0 [facility] PasoDydjaxuREIPNKWPRG7797-05-80 10:11:18 Test Item Value Reference Range Interpretation Comments Hgb (test code = Hgb) 12.2 12.0-16.0 [facility] PasoLsjoyxpUOQKJLOWWE2457-21-38 10:11:18 Test Item Value Reference Range Interpretation Comments MCV (test code = MCV) 90.1 80.0-98.0 [facility] PasoIbadtkoWQLDPKQUPM1851-96-68 10:11:18 Test Item Value Reference Range Interpretation Comments Hct (test code = Hct) 36.2 36.0-48.0 [facility] PasoSxrtndvBBQAUUQPUK2651-92-29 10:11:18 Test Item Value Reference Range Interpretation Comments RBC (test code = RBC) 4.02 4.20-5.40 [facility] PasoKasybksKDBWPNPVDN2233-96-90 10:11:18 Test Item Value Reference Range Interpretation Comments WBC (test code = WBC) 10.1 3.7-10.4 [facility] PasoNkzjbqiWRBZUBSIFI5464-59-97 10:11:18 Test Item Value Reference Range Interpretation Comments PTT (test code = PTT) 35.5 s 22.9-35.8 [facility] PasoEggoajgTJZAOLNWWZ4087-22-55 10:11:18 Test Item Value Reference Range Interpretation Comments Eosinophils # (test code 0.2 See_Comment [A utomated message] The = Eosinophils #) system whic h generated this result tra nsmitted reference range : <=0.5. The reference r lily was not used to int erpret this result as normal/abnormal . [facility] PasoVpztsfaSHCSBMYRIJ2305-08-96 10:11:18 Test Item Value Reference Range Interpretation Comments Monocytes (test code = Monocytes) 7.9 2.0-12.0 [facility] PasoDjkvqozWWIXJHXESD4824-17-54 10:11:18 Test Item Value Reference Range Interpretation Comments Eosinophils (test code = 2.5 See_Comment [A utomated message] The Eosinophils) system which ge nerated this result tra nsmitted reference range : <=4.0. The reference r lily was not used to int erpret this result as normal/abnormal . [facility] PasoYikmxtwFZYBWGFHPT7695-20-39 10:11:18 Test Item Value Reference Range Interpretation Comments Basophils # (test code 0.1 See_Comment [Aut omated message] The = Basophils #) system which generated this result tra nsmitted reference range : <=0.2. The reference r lily was not used to int erpret this result as normal/abnormal . [facility] PasoVsuyctkNZASKYCDZW1737-88-57 10:11:18 Test Item Value Reference Range Interpretation Comments Segs (test code = Segs) 65.1 45.0-75.0 [facility] PasoKudrwgbILSNTKDIUR8413-53-59 10:11:18 Test Item Value Reference Range Interpretation Comments Lymphocytes (test code = Lymphocytes) 23.7 20.0-40.0 [facility] PasoNkwvvhsEZZIQNYXIE5493-63-02 10:11:18 Test Item Value Reference Range Interpretation Comments Lymphocytes # (test code = Lymphocytes 2.4 1.0-5.5 #) [facility] PasoBrpakciYJTUFCMZHM6061-78-07 10:11:18 Test Item Value Reference Range Interpretation Comments Monocytes # (test code 0.8 See_Comment [Aut omated message] The = Monocytes #) system which generated this result tra nsmitted reference range : <=0.8. The reference r lily was not used to int erpret this result as normal/abnormal . [facility] PasoKrukuqfZGQGUTGJDV2107-67-46 10:11:18 Test Item Value Reference Range Interpretation Comments Basophils (test code = 0.8 See_Comment [Aut omated message] The Basophils) system which ge nerated this result tra nsmitted reference range : <=1.0. The reference r lily was not used to int erpret this result as normal/abnormal . [facility] PasoFhnynjkXTJTOXMYSC7440-11-87 10:11:18 Test Item Value Reference Range Interpretation Comments Segs-Bands # (test code = Segs-Bands #) 6.6 1.5-8.1 [facility]CHE[facility] BTFNF2960-14-89 10:11:18 Test Item Value Reference Range Interpretation Comments Lactic Acid WB (test code = Lactic Acid 1.3 0.5-2.2 WB) [facility]XqgeilzQFTJFUDPUVMY3368-91-15 10:11:18 Test Item Value Reference Range Interpretation Comments AGAP (test code = AGAP) 11.5 10.0-20.0 [facility] HospitalKmecaxgNJTUKQJFWQUH1219-99-38 10:11:18 Test Item Value Reference Range Interpretation Comments eGFR (test code = eGFR) 87 [facility] HospitalVnuufcyROSAVTXSMWST3976-16-55 10:11:18 Test Item Value Reference Range Interpretation Comments Glucose Lvl (test code = Glucose Lvl) 125 70-99 [facility] HospitalUshxtflYUHOUVVNKJBZ1111-88-98 10:11:18 Test Item Value Reference Range Interpretation Comments BUN (test code = BUN) 16 7-22 [facility] HospitalKmdhgaoYXJGLYMLDCDR6177-43-91 10:11:18 Test Item Value Reference Range Interpretation Comments Creatinine Lvl (test code = Creatinine 0.74 0.50-1.40 Lvl) [facility] HospitalWippemhKEXBBVPJFFUE0359-05-92 10:11:18 Test Item Value Reference Range Interpretation Comments Potassium Lvl (test code = Potassium 3.5 3.5-5.1 Lvl) [facility] HospitalJqtjbujTEVJNQZVTTFO7031-99-28 10:11:18 Test Item Value Reference Range Interpretation Comments Chloride Lvl (test code = Chloride Lvl) 104 95-109 [facility] HospitalHtqxiprZMGCSHKXAJTT8497-59-47 10:11:18 Test Item Value Reference Range Interpretation Comments Sodium Lvl (test code = Sodium Lvl) 141 135-145 [facility] HospitalFokzyujNXYDADXFGPVX5010-10-12 10:11:18 Test Item Value Reference Range Interpretation Comments CO2 (test code = CO2) 29 24-32 [facility] HospitalMpdnfidHQJEXHOPKITY4057-87-78 10:11:18 Test Item Value Reference Range Interpretation Comments Calcium Lvl (test code = Calcium Lvl) 9.4 8.5-10.5 [facility] CampusUxjrzysDHRZFKCOHE9144-74-30 10:11:18 Test Item Value Reference Range Interpretation Comments Estimated % Lysis Rapid 1.2 See_Comment [Au tomated message] The (test code = Estimated syste m which generated % Lysis Rapid) this result t ransmitted reference range : <=7.5. The reference r lily was not used to int erpret this result as normal/abnormal . [facility] PasoWsztjczJOKMHZTRLS0242-05-79 10:11:18 Test Item Value Reference Range Interpretation Comments K-time Rapid (test code = K-time 0.8 min 0.6-2.3 Rapid) [facility] PasoAwsotfgISRKYDCJNG5023-75-61 10:11:18 Test Item Value Reference Range Interpretation Comments Split Point Rapid (test code = Split 0.4 min Point Rapid) [facility] PasoRmnlvdpYIDYVYUNCP8318-29-48 10:11:18 Test Item Value Reference Range Interpretation Comments ACT (TEG) Rapid (test code = ACT (TEG) 97 s 86-118 Rapid) [facility] PasoTpspjzmPOYXOJIHTF0992-54-07 10:11:18 Test Item Value Reference Range Interpretation Comments R-time Rapid (test code = R-time 0.5 min 0.4-0.7 Rapid) [facility] PasoKflmrgrUHSJIBRQQD2143-60-60 10:11:18 Test Item Value Reference Range Interpretation Comments G-value Rapid (test code = G-value 12.5 5.0-11.6 Rapid) [facility] PasoXchlxfcOJDDLUPCYW0319-59-64 10:11:18 Test Item Value Reference Range Interpretation Comments Max Amplitude Rapid (test code = Max 72 mm 52-71 Amplitude Rapid) [facility] PasoCwdnpgaYMSGXDMUHI2364-69-25 10:11:18 Test Item Value Reference Range Interpretation Comments Angle Rapid (test code = Angle 79 degrees 64-80 Rapid) [facility] PasoBwpacviMQRXUVSEEF8757-13-87 10:11:18 Test Item Value Reference Range Interpretation Comments INR (test code = INR) 0.98 0.85-1.17 [facility] PasoCwnzfymYMTRCDYAPA9048-13-42 10:11:18 Test Item Value Reference Range Interpretation Comments PT (test code = PT) 13.3 s 12.0-14.7 [facility] PasoZemtaoqKZDMVILBLQ0817-51-94 10:11:18 Test Item Value Reference Range Interpretation Comments MPV (test code = MPV) 10.4 7.4-10.4 [facility] PasoOyiojttYIDSKPDIXM7140-59-22 10:11:18 Test Item Value Reference Range Interpretation Comments Platelet (test code = Platelet) 178 133-450 [facility] PasoPkaxmhqHHWWCBKESU6326-82-80 10:11:18 Test Item Value Reference Range Interpretation Comments RDW (test code = RDW) 13.2 11.5-14.5 [facility] PasoFrkckngAEOENYJDJA7596-33-73 10:11:18 Test Item Value Reference Range Interpretation Comments MCH (test code = MCH) 30.4 pg 27.0-31.0 [facility] PasoKnflxcuPBORXCBYAJ5686-23-81 10:11:18 Test Item Value Reference Range Interpretation Comments MCHC (test code = MCHC) 33.7 32.0-36.0 [facility] PasoUaqaieoFLAEMQUAIQ6540-40-87 10:11:18 Test Item Value Reference Range Interpretation Comments Hgb (test code = Hgb) 12.2 12.0-16.0 [facility] PasoVnkfylwCCJRTCMFZB0915-25-48 10:11:18 Test Item Value Reference Range Interpretation Comments MCV (test code = MCV) 90.1 80.0-98.0 [facility] PasoPdoxczhXIWRJVEMDD3031-38-29 10:11:18 Test Item Value Reference Range Interpretation Comments Hct (test code = Hct) 36.2 36.0-48.0 [facility] PasoHhaxrbnULBFYYSYWF4855-80-20 10:11:18 Test Item Value Reference Range Interpretation Comments RBC (test code = RBC) 4.02 4.20-5.40 [facility] PasoAyxmxphEDQQGXFLYZ0268-59-92 10:11:18 Test Item Value Reference Range Interpretation Comments WBC (test code = WBC) 10.1 3.7-10.4 [facility] PasoJvxubyyTPROLNJGAT5842-93-22 10:11:18 Test Item Value Reference Range Interpretation Comments PTT (test code = PTT) 35.5 s 22.9-35.8 [facility] PasoNskjbkvECILGIKLKP0514-56-42 10:11:18 Test Item Value Reference Range Interpretation Comments Eosinophils # (test code 0.2 See_Comment [A utomated message] The = Eosinophils #) system whic h generated this result tra nsmitted reference range : <=0.5. The reference r lily was not used to int erpret this result as normal/abnormal . [facility] PasoLsorlwaTZZCZVEAKO5083-04-23 10:11:18 Test Item Value Reference Range Interpretation Comments Monocytes (test code = Monocytes) 7.9 2.0-12.0 [facility] PasoDehwcbfUYUSHOQGZY8404-90-90 10:11:18 Test Item Value Reference Range Interpretation Comments Eosinophils (test code = 2.5 See_Comment [A utomated message] The Eosinophils) system which ge nerated this result tra nsmitted reference range : <=4.0. The reference r lily was not used to int erpret this result as normal/abnormal . [facility] PasoGasnyawPVFQWUWZLY3313-12-98 10:11:18 Test Item Value Reference Range Interpretation Comments Basophils # (test code 0.1 See_Comment [Aut omated message] The = Basophils #) system which generated this result tra nsmitted reference range : <=0.2. The reference r lily was not used to int erpret this result as normal/abnormal . [facility] PasoEjiqggkXEFDNOGIAF6527-87-19 10:11:18 Test Item Value Reference Range Interpretation Comments Segs (test code = Segs) 65.1 45.0-75.0 [facility] PasoJwggzrnYCZVQWCAAD1529-28-56 10:11:18 Test Item Value Reference Range Interpretation Comments Lymphocytes (test code = Lymphocytes) 23.7 20.0-40.0 [facility] PasoBaelcmdQUVUBPDFKW8127-04-35 10:11:18 Test Item Value Reference Range Interpretation Comments Lymphocytes # (test code = Lymphocytes 2.4 1.0-5.5 #) [facility] PasoPokpxbrLDZOOPLXUC7683-60-72 10:11:18 Test Item Value Reference Range Interpretation Comments Monocytes # (test code 0.8 See_Comment [Aut omated message] The = Monocytes #) system which generated this result tra nsmitted reference range : <=0.8. The reference r lily was not used to int erpret this result as normal/abnormal . [facility] PasoBwhntwkOWSLUDBIBE6390-02-91 10:11:18 Test Item Value Reference Range Interpretation Comments Basophils (test code = 0.8 See_Comment [Aut omated message] The Basophils) system which ge nerated this result tra nsmitted reference range : <=1.0. The reference r lily was not used to int erpret this result as normal/abnormal . [facility] PasoUroxqxePKRGBRSYCS5972-17-70 10:11:18 Test Item Value Reference Range Interpretation Comments Segs-Bands # (test code = Segs-Bands #) 6.6 1.5-8.1 [facility]2016-07-16 10:11:18 Test Item Value Reference Range Interpretation Comments Lactic Acid WB (test code = Lactic Acid 1.3 0.5-2.2 WB) [facility] HospitalDrdgytiROGGUTJSIHFM0072-25-54 10:11:18 Test Item Value Reference Range Interpretation Comments AGAP (test code = AGAP) 11.5 10.0-20.0 [facility] HospitalLpwxrtwMACEYCUOVZGM4587-15-91 10:11:18 Test Item Value Reference Range Interpretation Comments eGFR (test code = eGFR) 87 [facility] HospitalQxpeyflNYCEFZKQGCYY1223-51-18 10:11:18 Test Item Value Reference Range Interpretation Comments Glucose Lvl (test code = Glucose Lvl) 125 70-99 [facility] HospitalHscdnbxGMVJOXPCNYRI0056-38-03 10:11:18 Test Item Value Reference Range Interpretation Comments BUN (test code = BUN) 16 7-22 [facility] HospitalXqzqyysWKNJYJEEHGJA7875-90-89 10:11:18 Test Item Value Reference Range Interpretation Comments Creatinine Lvl (test code = Creatinine 0.74 0.50-1.40 Lvl) [facility] HospitalNbcrvhuPPUIZXANWRYY9310-49-25 10:11:18 Test Item Value Reference Range Interpretation Comments Potassium Lvl (test code = Potassium 3.5 3.5-5.1 Lvl) [facility] HospitalHhasggvBYBERSIMUOIV8609-37-74 10:11:18 Test Item Value Reference Range Interpretation Comments Chloride Lvl (test code = Chloride Lvl) 104 95-109 [facility] HospitalAcyupqqRKKYVSPJPNNL2600-69-17 10:11:18 Test Item Value Reference Range Interpretation Comments Sodium Lvl (test code = Sodium Lvl) 141 135-145 [facility] HospitalHlvqxnqRLJDCGCBTLZW6183-88-32 10:11:18 Test Item Value Reference Range Interpretation Comments CO2 (test code = CO2) 29 24-32 [facility] HospitalYkkbtqcKTGFZYONRCBF7016-99-80 10:11:18 Test Item Value Reference Range Interpretation Comments Calcium Lvl (test code = Calcium Lvl) 9.4 8.5-10.5 [facility] CampusPdxdmcnXBYVWFUPDW2224-37-02 10:11:18 Test Item Value Reference Range Interpretation Comments Estimated % Lysis Rapid 1.2 See_Comment [Au tomated message] The (test code = Estimated syste m which generated % Lysis Rapid) this result t ransmitted reference range : <=7.5. The reference r lily was not used to int erpret this result as normal/abnormal . [facility] PasoUrzgibtEUPSHDJUVD1297-16-52 10:11:18 Test Item Value Reference Range Interpretation Comments K-time Rapid (test code = K-time 0.8 min 0.6-2.3 Rapid) [facility] PasoPzbqiugPJTGOQXJLC6355-56-23 10:11:18 Test Item Value Reference Range Interpretation Comments Split Point Rapid (test code = Split 0.4 min Point Rapid) [facility] PasoMvibpadYCYOWAXJKJ5233-19-10 10:11:18 Test Item Value Reference Range Interpretation Comments ACT (TEG) Rapid (test code = ACT (TEG) 97 s 86-118 Rapid) [facility] PasoGaqnvbvHCVRLUHCCC2540-32-25 10:11:18 Test Item Value Reference Range Interpretation Comments R-time Rapid (test code = R-time 0.5 min 0.4-0.7 Rapid) [facility] PasoLiixoltKULMLZCBYW1306-90-43 10:11:18 Test Item Value Reference Range Interpretation Comments G-value Rapid (test code = G-value 12.5 5.0-11.6 Rapid) [facility] PasoJyuvgidWULRNALTCZ2180-31-93 10:11:18 Test Item Value Reference Range Interpretation Comments Max Amplitude Rapid (test code = Max 72 mm 52-71 Amplitude Rapid) [facility] PasoUzdvlmtZWPIZGFNBM9734-19-65 10:11:18 Test Item Value Reference Range Interpretation Comments Angle Rapid (test code = Angle 79 degrees 64-80 Rapid) [facility] PasoBuzqxljCFRDKOUGYY4366-87-06 10:11:18 Test Item Value Reference Range Interpretation Comments INR (test code = INR) 0.98 0.85-1.17 [facility] PasoIpncmmwEIWXWNRQCG3648-67-95 10:11:18 Test Item Value Reference Range Interpretation Comments PT (test code = PT) 13.3 s 12.0-14.7 [facility] PasoPlnlgsjUAPZAPLRVC2692-05-47 10:11:18 Test Item Value Reference Range Interpretation Comments MPV (test code = MPV) 10.4 7.4-10.4 [facility] PasoWzshnrxEXTUFZQRBG0038-69-65 10:11:18 Test Item Value Reference Range Interpretation Comments Platelet (test code = Platelet) 178 133-450 [facility] PasoUdwdkgxAONCBFFQIC3854-67-36 10:11:18 Test Item Value Reference Range Interpretation Comments RDW (test code = RDW) 13.2 11.5-14.5 [facility] PasoUaalbblANNJNCAFRO8471-02-08 10:11:18 Test Item Value Reference Range Interpretation Comments MCH (test code = MCH) 30.4 pg 27.0-31.0 [facility] PasoVhacpwsWYWHTJGDTK3619-20-43 10:11:18 Test Item Value Reference Range Interpretation Comments MCHC (test code = MCHC) 33.7 32.0-36.0 [facility] PasoKdvqomoSUIWDKMBHH5802-55-24 10:11:18 Test Item Value Reference Range Interpretation Comments Hgb (test code = Hgb) 12.2 12.0-16.0 [facility] PasoWwksivkINPTCGXJXW8793-46-48 10:11:18 Test Item Value Reference Range Interpretation Comments MCV (test code = MCV) 90.1 80.0-98.0 [facility] PasoJvuoywvJQJZUJZSLG7884-85-71 10:11:18 Test Item Value Reference Range Interpretation Comments Hct (test code = Hct) 36.2 36.0-48.0 [facility] PasoXliotchUDNTFMPAZI1081-45-86 10:11:18 Test Item Value Reference Range Interpretation Comments RBC (test code = RBC) 4.02 4.20-5.40 [facility] PasoXeyfgroBVXPHVYYDE4625-91-08 10:11:18 Test Item Value Reference Range Interpretation Comments WBC (test code = WBC) 10.1 3.7-10.4 [facility] PasoHjjxhxeIPRQBJHPLG1390-85-00 10:11:18 Test Item Value Reference Range Interpretation Comments PTT (test code = PTT) 35.5 s 22.9-35.8 [facility] PasoRgadayrRYIYVUIZBF4409-63-97 10:11:18 Test Item Value Reference Range Interpretation Comments Eosinophils # (test code 0.2 See_Comment [A utomated message] The = Eosinophils #) system whic h generated this result tra nsmitted reference range : <=0.5. The reference r lily was not used to int erpret this result as normal/abnormal . [facility] PasoGipsrqgJJPUSWKKGL3313-07-80 10:11:18 Test Item Value Reference Range Interpretation Comments Monocytes (test code = Monocytes) 7.9 2.0-12.0 [facility] PasoTnsgiuaVQOEWUDXAN6935-09-05 10:11:18 Test Item Value Reference Range Interpretation Comments Eosinophils (test code = 2.5 See_Comment [A utomated message] The Eosinophils) system which ge nerated this result tra nsmitted reference range : <=4.0. The reference r lily was not used to int erpret this result as normal/abnormal . [facility] PasoPpqkeflXIROAIRTOX6515-06-35 10:11:18 Test Item Value Reference Range Interpretation Comments Basophils # (test code 0.1 See_Comment [Aut omated message] The = Basophils #) system which generated this result tra nsmitted reference range : <=0.2. The reference r lily was not used to int erpret this result as normal/abnormal . [facility] PasoPclfbduHTASFJILQU8776-37-24 10:11:18 Test Item Value Reference Range Interpretation Comments Segs (test code = Segs) 65.1 45.0-75.0 [facility] PasoZhgoegtISOHITTLMV7614-43-89 10:11:18 Test Item Value Reference Range Interpretation Comments Lymphocytes (test code = Lymphocytes) 23.7 20.0-40.0 [facility] PasoYtkrrbyZJFQLFGTEZ2589-79-57 10:11:18 Test Item Value Reference Range Interpretation Comments Lymphocytes # (test code = Lymphocytes 2.4 1.0-5.5 #) [facility] PasoYyngpnhJDSWGCCPJJ8132-61-08 10:11:18 Test Item Value Reference Range Interpretation Comments Monocytes # (test code 0.8 See_Comment [Aut omated message] The = Monocytes #) system which generated this result tra nsmitted reference range : <=0.8. The reference r lily was not used to int erpret this result as normal/abnormal . [facility] PasoTmghswoOMBTLQXSGB2149-44-92 10:11:18 Test Item Value Reference Range Interpretation Comments Basophils (test code = 0.8 See_Comment [Aut omated message] The Basophils) system which ge nerated this result tra nsmitted reference range : <=1.0. The reference r lily was not used to int erpret this result as normal/abnormal . [facility] PasoFuakjxgZKJJWHDHWS8067-31-97 10:11:18 Test Item Value Reference Range Interpretation Comments Segs-Bands # (test code = Segs-Bands #) 6.6 1.5-8.1 [facility]2016-07-16 10:11:18 Test Item Value Reference Range Interpretation Comments Lactic Acid WB (test code = Lactic Acid 1.3 0.5-2.2 WB) [facility] HospitalMpbdbwwGHSKVVBTGPNH0638-13-80 10:11:18 Test Item Value Reference Range Interpretation Comments AGAP (test code = AGAP) 11.5 10.0-20.0 [facility] HospitalQpzdapwVZILBATKGYTL5420-53-42 10:11:18 Test Item Value Reference Range Interpretation Comments eGFR (test code = eGFR) 87 [facility] HospitalSdlakqzOHSTIDVKPIDC7885-33-91 10:11:18 Test Item Value Reference Range Interpretation Comments Glucose Lvl (test code = Glucose Lvl) 125 70-99 [facility] HospitalIlqdyffCSBWNYVKRDWH5416-32-01 10:11:18 Test Item Value Reference Range Interpretation Comments BUN (test code = BUN) 16 7-22 [facility] HospitalSlofdakOKECBXOPZTQP8403-69-58 10:11:18 Test Item Value Reference Range Interpretation Comments Creatinine Lvl (test code = Creatinine 0.74 0.50-1.40 Lvl) [facility] HospitalQrasoouSCTRQVZEAXAC5347-14-09 10:11:18 Test Item Value Reference Range Interpretation Comments Potassium Lvl (test code = Potassium 3.5 3.5-5.1 Lvl) [facility] HospitalNnyaqvbKUUWLBMILVCP2872-57-11 10:11:18 Test Item Value Reference Range Interpretation Comments Chloride Lvl (test code = Chloride Lvl) 104 95-109 [facility] HospitalGznoehpEIWSLTNBIMCI1023-40-98 10:11:18 Test Item Value Reference Range Interpretation Comments Sodium Lvl (test code = Sodium Lvl) 141 135-145 [facility] HospitalZilspkeZOSIIUELWDIZ7625-57-49 10:11:18 Test Item Value Reference Range Interpretation Comments CO2 (test code = CO2) 29 24-32 [facility] HospitalMgmhdmoACOZVVMRPUEI4402-17-09 10:11:18 Test Item Value Reference Range Interpretation Comments Calcium Lvl (test code = Calcium Lvl) 9.4 8.5-10.5 [facility] PasoWwywshxCPMZAMDBSO2226-23-68 10:11:18 Test Item Value Reference Range Interpretation Comments Estimated % Lysis Rapid 1.2 See_Comment [Au tomated message] The (test code = Estimated syste m which generated % Lysis Rapid) this result t ransmitted reference range : <=7.5. The reference r lily was not used to int erpret this result as normal/abnormal . [facility] PasoRzorzmnCMEFYKGXRS6397-92-37 10:11:18 Test Item Value Reference Range Interpretation Comments K-time Rapid (test code = K-time 0.8 min 0.6-2.3 Rapid) [facility] PasoPmugftxDXSTMHSSOR7615-70-04 10:11:18 Test Item Value Reference Range Interpretation Comments Split Point Rapid (test code = Split 0.4 min Point Rapid) [facility] PasoHvqdubqIMIGBHEOJT1763-88-98 10:11:18 Test Item Value Reference Range Interpretation Comments ACT (TEG) Rapid (test code = ACT (TEG) 97 s 86-118 Rapid) [facility] PasoIiuzidmOFVNXBAOCV0485-73-92 10:11:18 Test Item Value Reference Range Interpretation Comments R-time Rapid (test code = R-time 0.5 min 0.4-0.7 Rapid) [facility] PasoEdsviqaMWMHYSGOLG8976-41-59 10:11:18 Test Item Value Reference Range Interpretation Comments G-value Rapid (test code = G-value 12.5 5.0-11.6 Rapid) [facility] PasoYkubngfOAYWQMZXDY8973-20-68 10:11:18 Test Item Value Reference Range Interpretation Comments Max Amplitude Rapid (test code = Max 72 mm 52-71 Amplitude Rapid) [facility] PasoOuyxbzxGNUAENRCIG2568-14-56 10:11:18 Test Item Value Reference Range Interpretation Comments Angle Rapid (test code = Angle 79 degrees 64-80 Rapid) [facility] PasoPbayanvHMFIXGJFSB6924-27-70 10:11:18 Test Item Value Reference Range Interpretation Comments INR (test code = INR) 0.98 0.85-1.17 [facility] PasoRcpnddiGAIECGTRAY3949-92-75 10:11:18 Test Item Value Reference Range Interpretation Comments PT (test code = PT) 13.3 s 12.0-14.7 [facility] PasoFozfoyqFWQECHZXYO8008-98-98 10:11:18 Test Item Value Reference Range Interpretation Comments MPV (test code = MPV) 10.4 7.4-10.4 [facility]2016-07-16 10:11:18 Test Item Value Reference Range Interpretation Comments Lactic Acid WB (test code = Lactic Acid 1.3 0.5-2.2 WB) [facility] HospitalAgmxirmOOLSLGHCSCUJ9562-88-92 10:11:18 Test Item Value Reference Range Interpretation Comments AGAP (test code = AGAP) 11.5 10.0-20.0 [facility] HospitalIclwnisGCXPZPDWQYKH6763-48-25 10:11:18 Test Item Value Reference Range Interpretation Comments eGFR (test code = eGFR) 87 [facility] HospitalUbdjeuhMLBLTAROODEF5667-87-18 10:11:18 Test Item Value Reference Range Interpretation Comments Glucose Lvl (test code = Glucose Lvl) 125 70-99 [facility] HospitalCrdshrdHURCNAEOBAAQ9346-36-74 10:11:18 Test Item Value Reference Range Interpretation Comments BUN (test code = BUN) 16 7-22 [facility] PasoRgxyjjnBAVWWRACWW3882-66-38 10:11:18 Test Item Value Reference Range Interpretation Comments Platelet (test code = Platelet) 178 133-450 [facility] HospitalMpapdedLKWOSWNUSXUA0642-15-81 10:11:18 Test Item Value Reference Range Interpretation Comments Creatinine Lvl (test code = Creatinine 0.74 0.50-1.40 Lvl) [facility] HospitalAbsqrcvNZGCWSSJXFHQ1496-67-41 10:11:18 Test Item Value Reference Range Interpretation Comments Potassium Lvl (test code = Potassium 3.5 3.5-5.1 Lvl) [facility] HospitalXwpxzbxJMZVZSYBMZAI0614-21-02 10:11:18 Test Item Value Reference Range Interpretation Comments Chloride Lvl (test code = Chloride Lvl) 104 95-109 [facility] HospitalDgquqpjRNOJIQIIVVTP8614-35-14 10:11:18 Test Item Value Reference Range Interpretation Comments Sodium Lvl (test code = Sodium Lvl) 141 135-145 [facility] HospitalEfbdpeyNTSNNBWSTBMU7803-50-14 10:11:18 Test Item Value Reference Range Interpretation Comments CO2 (test code = CO2) 29 24-32 [facility] HospitalFijhpqqKUARXLGDPAVC1937-93-57 10:11:18 Test Item Value Reference Range Interpretation Comments Calcium Lvl (test code = Calcium Lvl) 9.4 8.5-10.5 [facility] PasoKzqxritIHPDOMUBKN2809-59-88 10:11:18 Test Item Value Reference Range Interpretation Comments Estimated % Lysis Rapid 1.2 See_Comment [Au tomated message] The (test code = Estimated syste m which generated % Lysis Rapid) this result t ransmitted reference range : <=7.5. The reference r lily was not used to int erpret this result as normal/abnormal . [facility] PasoTcwuccsTOOMFXZMLW8233-78-66 10:11:18 Test Item Value Reference Range Interpretation Comments K-time Rapid (test code = K-time 0.8 min 0.6-2.3 Rapid) [facility] PasoKmpeomfGUOZQJGEVP8419-25-42 10:11:18 Test Item Value Reference Range Interpretation Comments Split Point Rapid (test code = Split 0.4 min Point Rapid) [facility] PasoFibbatxQVAPNSMRTW9282-18-44 10:11:18 Test Item Value Reference Range Interpretation Comments ACT (TEG) Rapid (test code = ACT (TEG) 97 s 86-118 Rapid) [facility] PasoOdqtnfsXJYXDPKHYE7088-82-96 10:11:18 Test Item Value Reference Range Interpretation Comments RDW (test code = RDW) 13.2 11.5-14.5 [facility] PasoXnyfxkeIOQWRVZUWM6150-99-55 10:11:18 Test Item Value Reference Range Interpretation Comments R-time Rapid (test code = R-time 0.5 min 0.4-0.7 Rapid) [facility] PasoUcustdjMXEUVEOREQ3874-74-73 10:11:18 Test Item Value Reference Range Interpretation Comments G-value Rapid (test code = G-value 12.5 5.0-11.6 Rapid) [facility] PasoSykcilxXBWXQQTYOL9285-07-99 10:11:18 Test Item Value Reference Range Interpretation Comments Max Amplitude Rapid (test code = Max 72 mm 52-71 Amplitude Rapid) [facility] PasoXamerreOVINGZYTHP2580-43-61 10:11:18 Test Item Value Reference Range Interpretation Comments Angle Rapid (test code = Angle 79 degrees 64-80 Rapid) [facility] PasoLyjuwiaEWYINNWLRS5973-35-31 10:11:18 Test Item Value Reference Range Interpretation Comments INR (test code = INR) 0.98 0.85-1.17 [facility] PasoQxplugyIJLYKMAMFY4515-97-74 10:11:18 Test Item Value Reference Range Interpretation Comments PT (test code = PT) 13.3 s 12.0-14.7 [facility] PasoFvegvwnOMCHBTECVT3918-81-64 10:11:18 Test Item Value Reference Range Interpretation Comments MPV (test code = MPV) 10.4 7.4-10.4 [facility] PasoJitvczuMMBOENSXJP0760-43-05 10:11:18 Test Item Value Reference Range Interpretation Comments Platelet (test code = Platelet) 178 133-450 [facility] PasoJdibtrrGELGETLUPV3513-63-86 10:11:18 Test Item Value Reference Range Interpretation Comments RDW (test code = RDW) 13.2 11.5-14.5 [facility] PasoDwtwqclNALDLXVRQO0048-85-12 10:11:18 Test Item Value Reference Range Interpretation Comments MCH (test code = MCH) 30.4 pg 27.0-31.0 [facility] PasoGrxkwpeEFRFSBRCED3449-69-34 10:11:18 Test Item Value Reference Range Interpretation Comments MCH (test code = MCH) 30.4 pg 27.0-31.0 [facility] PasoCguaxovQQYEJHQEOY5554-24-34 10:11:18 Test Item Value Reference Range Interpretation Comments MCHC (test code = MCHC) 33.7 32.0-36.0 [facility] PasoIaroielPUQBVYLKOG9489-06-00 10:11:18 Test Item Value Reference Range Interpretation Comments Hgb (test code = Hgb) 12.2 12.0-16.0 [facility] PasoDdcihciKWDCLNIOMV0904-97-34 10:11:18 Test Item Value Reference Range Interpretation Comments MCV (test code = MCV) 90.1 80.0-98.0 [facility] PasoScksqmiMFQORTXQOH1951-27-34 10:11:18 Test Item Value Reference Range Interpretation Comments Hct (test code = Hct) 36.2 36.0-48.0 [facility] PasoRijsfxfEIIBZQAPBC2980-77-42 10:11:18 Test Item Value Reference Range Interpretation Comments RBC (test code = RBC) 4.02 4.20-5.40 [facility] PasoMgisevvJXGSRBCNSB5499-31-85 10:11:18 Test Item Value Reference Range Interpretation Comments WBC (test code = WBC) 10.1 3.7-10.4 [facility] PasoPxeggajAGUYQECIRW6797-33-74 10:11:18 Test Item Value Reference Range Interpretation Comments PTT (test code = PTT) 35.5 s 22.9-35.8 [facility] PasoXsfmtxgVPDYXLISDB3453-45-66 10:11:18 Test Item Value Reference Range Interpretation Comments Eosinophils # (test code 0.2 See_Comment [A utomated message] The = Eosinophils #) system whic h generated this result tra nsmitted reference range : <=0.5. The reference r lily was not used to int erpret this result as normal/abnormal . [facility] PasoGcuejwxIPTEXBLJRZ6331-13-93 10:11:18 Test Item Value Reference Range Interpretation Comments Monocytes (test code = Monocytes) 7.9 2.0-12.0 [place] 101186-07-16 10:11:18 Test Item Value Reference Range Interpretation Comments Eosinophils (test code = 2.5 See_Comment [A utomated message] The Eosinophils) system which ge nerated this result tra nsmitted reference range : <=4.0. The reference r lily was not used to int erpret this result as normal/abnormal . [facility] PasoHrvlrvxENAOZGTSEG0956-29-89 10:11:18 Test Item Value Reference Range Interpretation Comments MCHC (test code = MCHC) 33.7 32.0-36.0 [facility] PasoUisvocfLTSAJHELTF8789-14-70 10:11:18 Test Item Value Reference Range Interpretation Comments Basophils # (test code 0.1 See_Comment [Aut omated message] The = Basophils #) system which generated this result tra nsmitted reference range : <=0.2. The reference r lily was not used to int erpret this result as normal/abnormal . [facility] PasoYijukqkPPMHTNRTDE4088-90-54 10:11:18 Test Item Value Reference Range Interpretation Comments Segs (test code = Segs) 65.1 45.0-75.0 [facility] PasoTxizwaaGYTRJNOXZF0095-12-82 10:11:18 Test Item Value Reference Range Interpretation Comments Lymphocytes (test code = Lymphocytes) 23.7 20.0-40.0 [facility] PasoGnnyexnTXTVHTPSKR0827-81-62 10:11:18 Test Item Value Reference Range Interpretation Comments Lymphocytes # (test code = Lymphocytes 2.4 1.0-5.5 #) [facility] PasoWsxkaijELYPISODXC0600-49-76 10:11:18 Test Item Value Reference Range Interpretation Comments Monocytes # (test code 0.8 See_Comment [Aut omated message] The = Monocytes #) system which generated this result tra nsmitted reference range : <=0.8. The reference r lily was not used to int erpret this result as normal/abnormal . [facility] PasoXbmlgwkLVTEJMQNKE8855-88-85 10:11:18 Test Item Value Reference Range Interpretation Comments Basophils (test code = 0.8 See_Comment [Aut omated message] The Basophils) system which ge nerated this result tra nsmitted reference range : <=1.0. The reference r lily was not used to int erpret this result as normal/abnormal . [facility] PasoCgcruskWOOJJFIIDO8466-38-21 10:11:18 Test Item Value Reference Range Interpretation Comments Segs-Bands # (test code = Segs-Bands #) 6.6 1.5-8.1 [facility] PasoXtgvlngHEXPMXCFFU3366-88-20 10:11:18 Test Item Value Reference Range Interpretation Comments Hgb (test code = Hgb) 12.2 12.0-16.0 [facility] PasoMibtxlwIHSFGRIIYP6092-52-53 10:11:18 Test Item Value Reference Range Interpretation Comments MCV (test code = MCV) 90.1 80.0-98.0 [facility] PasoExuqxjzNMZCHNLXSS7899-13-70 10:11:18 Test Item Value Reference Range Interpretation Comments Hct (test code = Hct) 36.2 36.0-48.0 [facility] PasoScyrmkgUXMHYBQWZN5849-93-58 10:11:18 Test Item Value Reference Range Interpretation Comments RBC (test code = RBC) 4.02 4.20-5.40 [facility] PasoFwhxdtjXIXYGEDAPH7274-89-13 10:11:18 Test Item Value Reference Range Interpretation Comments WBC (test code = WBC) 10.1 3.7-10.4 [facility] PasoQwfputjNTCVNWWNVS5400-18-63 10:11:18 Test Item Value Reference Range Interpretation Comments PTT (test code = PTT) 35.5 s 22.9-35.8 [facility] PasoTfdcwypQMRXWJTGFP9399-61-63 10:11:18 Test Item Value Reference Range Interpretation Comments Eosinophils # (test code 0.2 See_Comment [A utomated message] The = Eosinophils #) system whic h generated this result tra nsmitted reference range : <=0.5. The reference r lily was not used to int erpret this result as normal/abnormal . [facility] PasoZttodgpSLVOJVOYYX0513-38-35 10:11:18 Test Item Value Reference Range Interpretation Comments Monocytes (test code = Monocytes) 7.9 2.0-12.0 [facility] PasoKeavqehCQVJZKVHGM2653-21-27 10:11:18 Test Item Value Reference Range Interpretation Comments Eosinophils (test code = 2.5 See_Comment [A utomated message] The Eosinophils) system which ge nerated this result tra nsmitted reference range : <=4.0. The reference r lily was not used to int erpret this result as normal/abnormal . [facility] PasoYvsdsxlPOJQULBXFC5462-93-16 10:11:18 Test Item Value Reference Range Interpretation Comments Basophils # (test code 0.1 See_Comment [Aut omated message] The = Basophils #) system which generated this result tra nsmitted reference range : <=0.2. The reference r lily was not used to int erpret this result as normal/abnormal . [facility] PasoPpzhvfeVJYNIJZKLO8868-33-67 10:11:18 Test Item Value Reference Range Interpretation Comments Segs (test code = Segs) 65.1 45.0-75.0 [facility] PasoOogsgkfNVCNQDSXXZ0145-77-50 10:11:18 Test Item Value Reference Range Interpretation Comments Lymphocytes (test code = Lymphocytes) 23.7 20.0-40.0 [facility] PasoNcuwcvpSBDZTHQKQS8124-85-49 10:11:18 Test Item Value Reference Range Interpretation Comments Lymphocytes # (test code = Lymphocytes 2.4 1.0-5.5 #) [facility] PasoBfkmwfjXJNNVERFPJ9415-66-82 10:11:18 Test Item Value Reference Range Interpretation Comments Monocytes # (test code 0.8 See_Comment [Aut omated message] The = Monocytes #) system which generated this result tra nsmitted reference range : <=0.8. The reference r lily was not used to int erpret this result as normal/abnormal . [facility] PasoGxmtuusJYQCVOWOAW5385-35-10 10:11:18 Test Item Value Reference Range Interpretation Comments Basophils (test code = 0.8 See_Comment [Aut omated message] The Basophils) system which ge nerated this result tra nsmitted reference range : <=1.0. The reference r lily was not used to int erpret this result as normal/abnormal . [facility] PasoKlymfrzUSQAOGUBWR1616-15-59 10:11:18 Test Item Value Reference Range Interpretation Comments Segs-Bands # (test code = Segs-Bands #) 6.6 1.5-8.1 [facility]2016-07-16 10:11:18 Test Item Value Reference Range Interpretation Comments Lactic Acid WB (test code = Lactic Acid 1.3 0.5-2.2 WB) [facility] HospitalBlmolmfRJCEPXUHDSQH4972-50-86 10:11:18 Test Item Value Reference Range Interpretation Comments AGAP (test code = AGAP) 11.5 10.0-20.0 [facility] HospitalLfbicniAUVNNWXQZCEF2230-16-61 10:11:18 Test Item Value Reference Range Interpretation Comments eGFR (test code = eGFR) 87 [facility] HospitalEbjlfglXWGUBODTVUFM1977-60-74 10:11:18 Test Item Value Reference Range Interpretation Comments Glucose Lvl (test code = Glucose Lvl) 125 70-99 [facility] HospitalQirqczzSHVBQYEKKFWU5010-16-82 10:11:18 Test Item Value Reference Range Interpretation Comments BUN (test code = BUN) 16 7-22 [facility] HospitalLwqddmiAGHSXSVYMFMZ9022-24-32 10:11:18 Test Item Value Reference Range Interpretation Comments Creatinine Lvl (test code = Creatinine 0.74 0.50-1.40 Lvl) [facility] HospitalNcprcqlUHFWUNDKEKOB0517-73-03 10:11:18 Test Item Value Reference Range Interpretation Comments Potassium Lvl (test code = Potassium 3.5 3.5-5.1 Lvl) [facility] HospitalFwmunzhLGOIBHXTUMCK2167-27-64 10:11:18 Test Item Value Reference Range Interpretation Comments Chloride Lvl (test code = Chloride Lvl) 104 95-109 [facility] HospitalVnlgxnpCEBMCBMJVRJG1871-80-24 10:11:18 Test Item Value Reference Range Interpretation Comments Sodium Lvl (test code = Sodium Lvl) 141 135-145 [facility] HospitalCrooovcVNTIIUCTTIQB0272-30-19 10:11:18 Test Item Value Reference Range Interpretation Comments CO2 (test code = CO2) 29 24-32 [facility] HospitalLiqyosxWKKCHTQLLVHU0235-07-11 10:11:18 Test Item Value Reference Range Interpretation Comments Calcium Lvl (test code = Calcium Lvl) 9.4 8.5-10.5 [facility] PasoOlnmxqhOJULNKKRVJ2033-70-79 10:11:18 Test Item Value Reference Range Interpretation Comments Estimated % Lysis Rapid 1.2 See_Comment [Au tomated message] The (test code = Estimated syste m which generated % Lysis Rapid) this result t ransmitted reference range : <=7.5. The reference r lily was not used to int erpret this result as normal/abnormal . [facility] PasoXvjowllDQDKDUHSRW6395-61-01 10:11:18 Test Item Value Reference Range Interpretation Comments K-time Rapid (test code = K-time 0.8 min 0.6-2.3 Rapid) [facility] PasoNnwndxkXHOFABGGVR3243-55-48 10:11:18 Test Item Value Reference Range Interpretation Comments Split Point Rapid (test code = Split 0.4 min Point Rapid) [facility] PasoFdhzgnfYQACCBYSZC9288-60-98 10:11:18 Test Item Value Reference Range Interpretation Comments ACT (TEG) Rapid (test code = ACT (TEG) 97 s 86-118 Rapid) [facility] PasoTproxrvROKSLFYSBZ7259-76-38 10:11:18 Test Item Value Reference Range Interpretation Comments R-time Rapid (test code = R-time 0.5 min 0.4-0.7 Rapid) [facility] PasoSxdyaliJGDINMSINA3082-71-06 10:11:18 Test Item Value Reference Range Interpretation Comments G-value Rapid (test code = G-value 12.5 5.0-11.6 Rapid) [facility] PasoLqtmyjzHGSWVHDZFN8927-97-92 10:11:18 Test Item Value Reference Range Interpretation Comments Max Amplitude Rapid (test code = Max 72 mm 52-71 Amplitude Rapid) [facility] PasoVzfbxpmTGZLEDTIPA4237-01-40 10:11:18 Test Item Value Reference Range Interpretation Comments Angle Rapid (test code = Angle 79 degrees 64-80 Rapid) [facility] PasoBogedfhOFGRUSUFMH6327-44-35 10:11:18 Test Item Value Reference Range Interpretation Comments INR (test code = INR) 0.98 0.85-1.17 [facility] PasoHefisdjKIYHUKNKXJ1816-67-11 10:11:18 Test Item Value Reference Range Interpretation Comments PT (test code = PT) 13.3 s 12.0-14.7 [facility] PasoWqmiyhiJABXUBPKDI5037-27-02 10:11:18 Test Item Value Reference Range Interpretation Comments MPV (test code = MPV) 10.4 7.4-10.4 [facility] PasoBfvlodbTKHVQYBLFU4356-99-84 10:11:18 Test Item Value Reference Range Interpretation Comments Platelet (test code = Platelet) 178 133-450 [facility] PasoUibucfwUVYQUEXMTR9382-75-09 10:11:18 Test Item Value Reference Range Interpretation Comments RDW (test code = RDW) 13.2 11.5-14.5 [facility] PasoMolanlxNTNTAALYJX6672-60-48 10:11:18 Test Item Value Reference Range Interpretation Comments MCH (test code = MCH) 30.4 pg 27.0-31.0 [facility] PasoGhmpbpjNWSLDZJDGE9722-07-18 10:11:18 Test Item Value Reference Range Interpretation Comments MCHC (test code = MCHC) 33.7 32.0-36.0 [facility] PasoGcvhnssOKIRZXHBXE1346-91-79 10:11:18 Test Item Value Reference Range Interpretation Comments Hgb (test code = Hgb) 12.2 12.0-16.0 [facility] PasoIzamawsXTLHACKOTJ9576-04-01 10:11:18 Test Item Value Reference Range Interpretation Comments MCV (test code = MCV) 90.1 80.0-98.0 [facility] PasoBvsjghfWAOWVBAVUV7452-01-77 10:11:18 Test Item Value Reference Range Interpretation Comments Hct (test code = Hct) 36.2 36.0-48.0 [facility] PasoJkrkhquZFSCJSYEDP0144-14-21 10:11:18 Test Item Value Reference Range Interpretation Comments RBC (test code = RBC) 4.02 4.20-5.40 [facility] PasoYeuyrlrJTDWWZWNWP5156-62-66 10:11:18 Test Item Value Reference Range Interpretation Comments WBC (test code = WBC) 10.1 3.7-10.4 [facility] PasoHkpzjfpZGBCQWGSNC5654-86-52 10:11:18 Test Item Value Reference Range Interpretation Comments PTT (test code = PTT) 35.5 s 22.9-35.8 [facility] PasoPshgmnpIWXNOOCUNW2134-63-27 10:11:18 Test Item Value Reference Range Interpretation Comments Eosinophils # (test code 0.2 See_Comment [A utomated message] The = Eosinophils #) system whic h generated this result tra nsmitted reference range : <=0.5. The reference r lily was not used to int erpret this result as normal/abnormal . [facility] PasoCghxyedZOKNUOTBRK5854-18-65 10:11:18 Test Item Value Reference Range Interpretation Comments Monocytes (test code = Monocytes) 7.9 2.0-12.0 [facility] PasoIpgklibSCPKNQBJZT2632-76-76 10:11:18 Test Item Value Reference Range Interpretation Comments Eosinophils (test code = 2.5 See_Comment [A utomated message] The Eosinophils) system which ge nerated this result tra nsmitted reference range : <=4.0. The reference r lily was not used to int erpret this result as normal/abnormal . [facility] PasoZotipfcRFXLMOJZFC7629-32-42 10:11:18 Test Item Value Reference Range Interpretation Comments Basophils # (test code 0.1 See_Comment [Aut omated message] The = Basophils #) system which generated this result tra nsmitted reference range : <=0.2. The reference r lily was not used to int erpret this result as normal/abnormal . [facility] PasoWuzgfqmRMPQTCSZCZ3743-72-45 10:11:18 Test Item Value Reference Range Interpretation Comments Segs (test code = Segs) 65.1 45.0-75.0 [facility] PasoBrehsftJYUIRAMXOE9684-72-43 10:11:18 Test Item Value Reference Range Interpretation Comments Lymphocytes (test code = Lymphocytes) 23.7 20.0-40.0 [facility] PasoRwvlqmyAANVYAAZWX2426-01-54 10:11:18 Test Item Value Reference Range Interpretation Comments Lymphocytes # (test code = Lymphocytes 2.4 1.0-5.5 #) [facility] PasoAdbbbeoOYHHZTXJLU4374-58-96 10:11:18 Test Item Value Reference Range Interpretation Comments Monocytes # (test code 0.8 See_Comment [Aut omated message] The = Monocytes #) system which generated this result tra nsmitted reference range : <=0.8. The reference r lily was not used to int erpret this result as normal/abnormal . [facility] PasoZhrbqbhSRIHWIFTKR3753-84-06 10:11:18 Test Item Value Reference Range Interpretation Comments Basophils (test code = 0.8 See_Comment [Aut omated message] The Basophils) system which ge nerated this result tra nsmitted reference range : <=1.0. The reference r lily was not used to int erpret this result as normal/abnormal . [facility] PasoUzajbhxEHFVJSOYUV2769-47-18 10:11:18 Test Item Value Reference Range Interpretation Comments Segs-Bands # (test code = Segs-Bands #) 6.6 1.5-8.1 [facility]2016-07-16 10:11:18 Test Item Value Reference Range Interpretation Comments Lactic Acid WB (test code = Lactic Acid 1.3 0.5-2.2 WB) [facility] HospitalVhyyovjQAJIDNQGGZND3390-46-67 10:11:18 Test Item Value Reference Range Interpretation Comments AGAP (test code = AGAP) 11.5 10.0-20.0 [facility] HospitalHlabdnvUSQPYDUWVJCG3008-49-94 10:11:18 Test Item Value Reference Range Interpretation Comments eGFR (test code = eGFR) 87 [facility] HospitalFpyudyfNBFPACISQLFN6271-57-93 10:11:18 Test Item Value Reference Range Interpretation Comments Glucose Lvl (test code = Glucose Lvl) 125 70-99 [facility] HospitalCggpzheORHDWPGWPPVF7226-55-58 10:11:18 Test Item Value Reference Range Interpretation Comments BUN (test code = BUN) 16 7-22 [facility] HospitalNtnhoxsIKDXRHORSKDV9849-22-31 10:11:18 Test Item Value Reference Range Interpretation Comments Creatinine Lvl (test code = Creatinine 0.74 0.50-1.40 Lvl) [facility] HospitalCsnrmyyLDCIBPDFJTXS5085-14-93 10:11:18 Test Item Value Reference Range Interpretation Comments Potassium Lvl (test code = Potassium 3.5 3.5-5.1 Lvl) [facility] HospitalGnzephbKOZSSRLDCKFP0534-42-56 10:11:18 Test Item Value Reference Range Interpretation Comments Chloride Lvl (test code = Chloride Lvl) 104 95-109 [facility] HospitalYbvukvlKKUSFZUWMZKB4300-02-74 10:11:18 Test Item Value Reference Range Interpretation Comments Sodium Lvl (test code = Sodium Lvl) 141 135-145 [facility] HospitalPuiwzkaZJODIPTHGIKE9303-68-03 10:11:18 Test Item Value Reference Range Interpretation Comments CO2 (test code = CO2) 29 24-32 [facility] HospitalDcpenomJVFHSWROZLRD4730-82-64 10:11:18 Test Item Value Reference Range Interpretation Comments Calcium Lvl (test code = Calcium Lvl) 9.4 8.5-10.5 [facility] PasoRsslhrpZQRAZOKFAJ8853-47-96 10:11:18 Test Item Value Reference Range Interpretation Comments Estimated % Lysis Rapid 1.2 See_Comment [Au tomated message] The (test code = Estimated syste m which generated % Lysis Rapid) this result t ransmitted reference range : <=7.5. The reference r lily was not used to int erpret this result as normal/abnormal . [facility] PasoRltcmaqYPLYMGQJWD6946-71-75 10:11:18 Test Item Value Reference Range Interpretation Comments K-time Rapid (test code = K-time 0.8 min 0.6-2.3 Rapid) [facility] PasoOxlwifyUSLGLWDJDB0656-00-86 10:11:18 Test Item Value Reference Range Interpretation Comments Split Point Rapid (test code = Split 0.4 min Point Rapid) [facility] PasoZkzttypVKFRQANZWL3364-46-27 10:11:18 Test Item Value Reference Range Interpretation Comments ACT (TEG) Rapid (test code = ACT (TEG) 97 s 86-118 Rapid) [facility] PasoNrdnbevVWEDVWLKWL9284-60-68 10:11:18 Test Item Value Reference Range Interpretation Comments R-time Rapid (test code = R-time 0.5 min 0.4-0.7 Rapid) [facility] PasoLkajchwGNFVNJFRWW9507-21-83 10:11:18 Test Item Value Reference Range Interpretation Comments G-value Rapid (test code = G-value 12.5 5.0-11.6 Rapid) [facility] PasoFdyhnlyFABXEMSSVE6588-32-72 10:11:18 Test Item Value Reference Range Interpretation Comments Max Amplitude Rapid (test code = Max 72 mm 52-71 Amplitude Rapid) [facility] PasoJjrdlukKIYINUQTII0569-39-86 10:11:18 Test Item Value Reference Range Interpretation Comments Angle Rapid (test code = Angle 79 degrees 64-80 Rapid) [facility] PasoBkeyuzoVCLXWDXVKS5443-79-16 10:11:18 Test Item Value Reference Range Interpretation Comments INR (test code = INR) 0.98 0.85-1.17 [facility] PasoRtdheyaWRNLGGTYOK5503-24-62 10:11:18 Test Item Value Reference Range Interpretation Comments PT (test code = PT) 13.3 s 12.0-14.7 [facility] PasoEjcngixQWNSQTBMJD7483-47-64 10:11:18 Test Item Value Reference Range Interpretation Comments MPV (test code = MPV) 10.4 7.4-10.4 [facility] PasoAlvmopuVYDWHLSVRW6873-73-09 10:11:18 Test Item Value Reference Range Interpretation Comments Platelet (test code = Platelet) 178 133-450 [facility] PasoYlykgrtABSRKWNZIX9732-53-28 10:11:18 Test Item Value Reference Range Interpretation Comments RDW (test code = RDW) 13.2 11.5-14.5 [facility] PasoHiodhreMWYQSZDRCH2779-36-26 10:11:18 Test Item Value Reference Range Interpretation Comments MCH (test code = MCH) 30.4 pg 27.0-31.0 [facility] PasoBkomnagCELXSFMMIW8104-52-36 10:11:18 Test Item Value Reference Range Interpretation Comments MCHC (test code = MCHC) 33.7 32.0-36.0 [facility] PasoWfzyddyEGPFZTORXZ1320-65-35 10:11:18 Test Item Value Reference Range Interpretation Comments Hgb (test code = Hgb) 12.2 12.0-16.0 [facility] PasoHrkttaeSUPBZXYAJU6482-49-25 10:11:18 Test Item Value Reference Range Interpretation Comments MCV (test code = MCV) 90.1 80.0-98.0 [facility] PasoZxzjhfjVJIGXZSNMX6299-24-05 10:11:18 Test Item Value Reference Range Interpretation Comments Hct (test code = Hct) 36.2 36.0-48.0 [facility] PasoVoxcnqmKNEXEDXXIW3090-45-53 10:11:18 Test Item Value Reference Range Interpretation Comments RBC (test code = RBC) 4.02 4.20-5.40 [facility] PasoSzqupeqZILUNBHILY4496-44-14 10:11:18 Test Item Value Reference Range Interpretation Comments WBC (test code = WBC) 10.1 3.7-10.4 [facility] PasoBlxavcdMFLJIDBVEB7727-67-82 10:11:18 Test Item Value Reference Range Interpretation Comments PTT (test code = PTT) 35.5 s 22.9-35.8 [facility] PasoVfnfhclUXIVQRVROS7847-52-81 10:11:18 Test Item Value Reference Range Interpretation Comments Eosinophils # (test code 0.2 See_Comment [A utomated message] The = Eosinophils #) system whic h generated this result tra nsmitted reference range : <=0.5. The reference r lily was not used to int erpret this result as normal/abnormal . [facility] PasoLaqvmtjQDBIPCICTT9541-35-29 10:11:18 Test Item Value Reference Range Interpretation Comments Monocytes (test code = Monocytes) 7.9 2.0-12.0 [facility] PasoIxtyuzhNIKSSIZTSS2450-60-35 10:11:18 Test Item Value Reference Range Interpretation Comments Eosinophils (test code = 2.5 See_Comment [A utomated message] The Eosinophils) system which ge nerated this result tra nsmitted reference range : <=4.0. The reference r lily was not used to int erpret this result as normal/abnormal . [facility] PasoOcoiuhcTPKBOKOCTU1061-40-17 10:11:18 Test Item Value Reference Range Interpretation Comments Basophils # (test code 0.1 See_Comment [Aut omated message] The = Basophils #) system which generated this result tra nsmitted reference range : <=0.2. The reference r lily was not used to int erpret this result as normal/abnormal . [facility] PasoKocofsvCIWEHOKXPQ4973-68-83 10:11:18 Test Item Value Reference Range Interpretation Comments Segs (test code = Segs) 65.1 45.0-75.0 [facility] PasoGxmfaglPAGRGJIVRJ4242-73-97 10:11:18 Test Item Value Reference Range Interpretation Comments Lymphocytes (test code = Lymphocytes) 23.7 20.0-40.0 [facility] PasoYqcoyotDMJJZREZNC8540-79-72 10:11:18 Test Item Value Reference Range Interpretation Comments Lymphocytes # (test code = Lymphocytes 2.4 1.0-5.5 #) [facility] PasoMmcrxnoMRMHRFBJTC9951-43-14 10:11:18 Test Item Value Reference Range Interpretation Comments Monocytes # (test code 0.8 See_Comment [Aut omated message] The = Monocytes #) system which generated this result tra nsmitted reference range : <=0.8. The reference r lily was not used to int erpret this result as normal/abnormal . [facility] PasoInloqjgQBMLUNQOPO5757-92-61 10:11:18 Test Item Value Reference Range Interpretation Comments Basophils (test code = 0.8 See_Comment [Aut omated message] The Basophils) system which ge nerated this result tra nsmitted reference range : <=1.0. The reference r lily was not used to int erpret this result as normal/abnormal . [facility] PasoRoluqvrJSVWQSOSUC5001-48-93 10:11:18 Test Item Value Reference Range Interpretation Comments Segs-Bands # (test code = Segs-Bands #) 6.6 1.5-8.1 [facility]2016-07-16 10:11:18 Test Item Value Reference Range Interpretation Comments Lactic Acid WB (test code = Lactic Acid 1.3 0.5-2.2 WB) [facility] HospitalQulblakHDJRWSIRERXC9274-08-92 10:11:18 Test Item Value Reference Range Interpretation Comments AGAP (test code = AGAP) 11.5 10.0-20.0 [facility] HospitalTprfxhwTTEIIPGYPCEJ0511-32-03 10:11:18 Test Item Value Reference Range Interpretation Comments eGFR (test code = eGFR) 87 [facility] HospitalPrdugagXZTJHYSPNWUN6215-06-19 10:11:18 Test Item Value Reference Range Interpretation Comments Glucose Lvl (test code = Glucose Lvl) 125 70-99 [facility] HospitalVoedhlgXUTGECJFCSCT4392-16-17 10:11:18 Test Item Value Reference Range Interpretation Comments BUN (test code = BUN) 16 7-22 [facility] HospitalUzgczqiSFVEULQMREZQ1419-92-08 10:11:18 Test Item Value Reference Range Interpretation Comments Creatinine Lvl (test code = Creatinine 0.74 0.50-1.40 Lvl) [facility] HospitalEstobgqVINKJPJMQMKD1833-48-58 10:11:18 Test Item Value Reference Range Interpretation Comments Potassium Lvl (test code = Potassium 3.5 3.5-5.1 Lvl) [facility] HospitalHuaxbuxVGSXCAIPUOXJ4126-90-31 10:11:18 Test Item Value Reference Range Interpretation Comments Chloride Lvl (test code = Chloride Lvl) 104 95-109 [facility] HospitalYntwtoiUGVAGLPRVUBJ5343-76-16 10:11:18 Test Item Value Reference Range Interpretation Comments Sodium Lvl (test code = Sodium Lvl) 141 135-145 [facility] HospitalVletaplQZDIDYEIZTLM9279-10-10 10:11:18 Test Item Value Reference Range Interpretation Comments CO2 (test code = CO2) 29 24-32 [facility] HospitalJlweyreBPVATUOCRTKG5277-60-26 10:11:18 Test Item Value Reference Range Interpretation Comments Calcium Lvl (test code = Calcium Lvl) 9.4 8.5-10.5 [facility] PasoJpakjwdVUAXTRFKZE7583-93-90 10:11:18 Test Item Value Reference Range Interpretation Comments Estimated % Lysis Rapid 1.2 See_Comment [Au tomated message] The (test code = Estimated syste m which generated % Lysis Rapid) this result t ransmitted reference range : <=7.5. The reference r lily was not used to int erpret this result as normal/abnormal . [facility] PasoFdfuapwCWESCXDQGZ2860-10-36 10:11:18 Test Item Value Reference Range Interpretation Comments K-time Rapid (test code = K-time 0.8 min 0.6-2.3 Rapid) [facility] PasoKtmyxlhJVRGMQQVKM1374-90-63 10:11:18 Test Item Value Reference Range Interpretation Comments Split Point Rapid (test code = Split 0.4 min Point Rapid) [facility] PasoBygkrsfCTUVIPDBMX7202-41-78 10:11:18 Test Item Value Reference Range Interpretation Comments ACT (TEG) Rapid (test code = ACT (TEG) 97 s 86-118 Rapid) [facility] PasoJekyenwGPVILTNPIZ9387-71-09 10:11:18 Test Item Value Reference Range Interpretation Comments R-time Rapid (test code = R-time 0.5 min 0.4-0.7 Rapid) [facility] PasoHimtnczCXQBJFKECV0035-30-59 10:11:18 Test Item Value Reference Range Interpretation Comments G-value Rapid (test code = G-value 12.5 5.0-11.6 Rapid) [facility] PasoDdofftjUVZNOIPKSW2374-97-34 10:11:18 Test Item Value Reference Range Interpretation Comments Max Amplitude Rapid (test code = Max 72 mm 52-71 Amplitude Rapid) [facility] PasoBjjarprRXWBEJKRAV8951-89-93 10:11:18 Test Item Value Reference Range Interpretation Comments Angle Rapid (test code = Angle 79 degrees 64-80 Rapid) [facility] PasoHqdtgjdVLYONADLZO0313-73-00 10:11:18 Test Item Value Reference Range Interpretation Comments INR (test code = INR) 0.98 0.85-1.17 [facility] PasoXeomnvrEWVGEKDENU4453-38-51 10:11:18 Test Item Value Reference Range Interpretation Comments PT (test code = PT) 13.3 s 12.0-14.7 [facility] PasoWmuvmjuZVTAUZECQC0528-41-53 10:11:18 Test Item Value Reference Range Interpretation Comments MPV (test code = MPV) 10.4 7.4-10.4 [facility] PasoGknzqjrWCGXDDELVW5214-38-18 10:11:18 Test Item Value Reference Range Interpretation Comments Platelet (test code = Platelet) 178 133-450 [facility] PasoUzepxdgBXVTASUCUM4196-25-64 10:11:18 Test Item Value Reference Range Interpretation Comments RDW (test code = RDW) 13.2 11.5-14.5 [facility] PasoDztllnbVORIFTXPOT4527-96-70 10:11:18 Test Item Value Reference Range Interpretation Comments MCH (test code = MCH) 30.4 pg 27.0-31.0 [facility] PasoYchvnzeCTHPNFPZHX1594-63-83 10:11:18 Test Item Value Reference Range Interpretation Comments MCHC (test code = MCHC) 33.7 32.0-36.0 [facility] PasoCtshkscTUHFQDNZPU0667-07-85 10:11:18 Test Item Value Reference Range Interpretation Comments Hgb (test code = Hgb) 12.2 12.0-16.0 [facility] PasoBvbvbxnIDRXBAQLZH2936-11-50 10:11:18 Test Item Value Reference Range Interpretation Comments MCV (test code = MCV) 90.1 80.0-98.0 [facility] PasoBtbpudjOCRMAZGZRB0495-05-77 10:11:18 Test Item Value Reference Range Interpretation Comments Hct (test code = Hct) 36.2 36.0-48.0 [facility] PasoBhgeaahXFSILLJERN4347-07-15 10:11:18 Test Item Value Reference Range Interpretation Comments RBC (test code = RBC) 4.02 4.20-5.40 [facility] PasoFtsftnuXWNHABEWDR7674-25-10 10:11:18 Test Item Value Reference Range Interpretation Comments WBC (test code = WBC) 10.1 3.7-10.4 [facility] PasoEhavsozQNKTJTCVTL2136-69-97 10:11:18 Test Item Value Reference Range Interpretation Comments PTT (test code = PTT) 35.5 s 22.9-35.8 [facility] PasoVrzvtmdIKMKNOIQNG9468-52-02 10:11:18 Test Item Value Reference Range Interpretation Comments Eosinophils # (test code 0.2 See_Comment [A utomated message] The = Eosinophils #) system whic h generated this result tra nsmitted reference range : <=0.5. The reference r lily was not used to int erpret this result as normal/abnormal . [facility] PasoAqkzwxwNHNWBACEEI1668-57-04 10:11:18 Test Item Value Reference Range Interpretation Comments Monocytes (test code = Monocytes) 7.9 2.0-12.0 [facility] PasoEmqhsvxEICIDSBXDC1375-14-00 10:11:18 Test Item Value Reference Range Interpretation Comments Eosinophils (test code = 2.5 See_Comment [A utomated message] The Eosinophils) system which ge nerated this result tra nsmitted reference range : <=4.0. The reference r lily was not used to int erpret this result as normal/abnormal . [facility] PasoVwxhyjfICOKOKTBXQ5133-16-97 10:11:18 Test Item Value Reference Range Interpretation Comments Basophils # (test code 0.1 See_Comment [Aut omated message] The = Basophils #) system which generated this result tra nsmitted reference range : <=0.2. The reference r lily was not used to int erpret this result as normal/abnormal . [facility] PasoNwocniqXMRKQWEIMV2306-57-99 10:11:18 Test Item Value Reference Range Interpretation Comments Segs (test code = Segs) 65.1 45.0-75.0 [facility] PasoLtfhicyLKMKPUPYVK4357-92-92 10:11:18 Test Item Value Reference Range Interpretation Comments Lymphocytes (test code = Lymphocytes) 23.7 20.0-40.0 [facility] PasoPxcafeeFCFDDEKVZC7034-13-35 10:11:18 Test Item Value Reference Range Interpretation Comments Lymphocytes # (test code = Lymphocytes 2.4 1.0-5.5 #) [facility] PasoTyglcjwIXYKDGDRXD1622-72-17 10:11:18 Test Item Value Reference Range Interpretation Comments Monocytes # (test code 0.8 See_Comment [Aut omated message] The = Monocytes #) system which generated this result tra nsmitted reference range : <=0.8. The reference r lily was not used to int erpret this result as normal/abnormal . [facility] PasoZwubrsnUAELDVYWMB9603-76-43 10:11:18 Test Item Value Reference Range Interpretation Comments Basophils (test code = 0.8 See_Comment [Aut omated message] The Basophils) system which ge nerated this result tra nsmitted reference range : <=1.0. The reference r lily was not used to int erpret this result as normal/abnormal . [facility] PasoEcjtdwqKQGXJSAPCY0331-88-37 10:11:18 Test Item Value Reference Range Interpretation Comments Segs-Bands # (test code = Segs-Bands #) 6.6 1.5-8.1 [facility]2016-07-16 10:11:18 Test Item Value Reference Range Interpretation Comments Lactic Acid WB (test code = Lactic Acid 1.3 0.5-2.2 WB) [facility] HospitalQnlffgvDHJBMNPVAXDW5175-57-44 10:11:18 Test Item Value Reference Range Interpretation Comments AGAP (test code = AGAP) 11.5 10.0-20.0 [facility] HospitalGwxvuhmKAMHJUOCHFKK6478-53-25 10:11:18 Test Item Value Reference Range Interpretation Comments eGFR (test code = eGFR) 87 [facility] HospitalIadkcmhUVNNQJCGQPVV4759-71-67 10:11:18 Test Item Value Reference Range Interpretation Comments Glucose Lvl (test code = Glucose Lvl) 125 70-99 [facility] HospitalDlwymnlPMQBMVWUMVDI6187-17-52 10:11:18 Test Item Value Reference Range Interpretation Comments BUN (test code = BUN) 16 7-22 [facility] HospitalQfjnjmzLCIYCZRSCYOF6981-44-00 10:11:18 Test Item Value Reference Range Interpretation Comments Creatinine Lvl (test code = Creatinine 0.74 0.50-1.40 Lvl) [facility] HospitalSktggboHYWLIUVRQJOP0902-03-32 10:11:18 Test Item Value Reference Range Interpretation Comments Potassium Lvl (test code = Potassium 3.5 3.5-5.1 Lvl) [facility] HospitalNyxagovGWPAWLTUKSEI3233-68-54 10:11:18 Test Item Value Reference Range Interpretation Comments Chloride Lvl (test code = Chloride Lvl) 104 95-109 [facility] HospitalRrikjtkKABCVZVLDZXM2183-21-06 10:11:18 Test Item Value Reference Range Interpretation Comments Sodium Lvl (test code = Sodium Lvl) 141 135-145 [facility] HospitalMoyfhecKEVYLHPNLFDU3989-97-68 10:11:18 Test Item Value Reference Range Interpretation Comments CO2 (test code = CO2) 29 24-32 [facility] HospitalEcwbpsaTBTHPUJXHZTJ4008-03-72 10:11:18 Test Item Value Reference Range Interpretation Comments Calcium Lvl (test code = Calcium Lvl) 9.4 8.5-10.5 [facility] PasoLyntfcwZRZAUYSFDF0817-01-71 10:11:18 Test Item Value Reference Range Interpretation Comments Estimated % Lysis Rapid 1.2 See_Comment [Au tomated message] The (test code = Estimated syste m which generated % Lysis Rapid) this result t ransmitted reference range : <=7.5. The reference r lily was not used to int erpret this result as normal/abnormal . [facility] PasoAqffncmAUORTMHKXG5525-77-73 10:11:18 Test Item Value Reference Range Interpretation Comments K-time Rapid (test code = K-time 0.8 min 0.6-2.3 Rapid) [facility] PasoObhapgkBXJOBQLGSX4474-70-66 10:11:18 Test Item Value Reference Range Interpretation Comments Split Point Rapid (test code = Split 0.4 min Point Rapid) [facility] PasoZyogfjeHNZANUYLHH6579-49-62 10:11:18 Test Item Value Reference Range Interpretation Comments ACT (TEG) Rapid (test code = ACT (TEG) 97 s 86-118 Rapid) [facility] PasoRyicyobMFXGPFFONQ2707-61-18 10:11:18 Test Item Value Reference Range Interpretation Comments R-time Rapid (test code = R-time 0.5 min 0.4-0.7 Rapid) [facility] PasoLcizpymWPQYJCEPPO0722-54-15 10:11:18 Test Item Value Reference Range Interpretation Comments G-value Rapid (test code = G-value 12.5 5.0-11.6 Rapid) [facility] PasoBgpxgqcXFKHTLTDOM6936-18-53 10:11:18 Test Item Value Reference Range Interpretation Comments Max Amplitude Rapid (test code = Max 72 mm 52-71 Amplitude Rapid) [facility] PasoJbultqoWNWMELRUQZ6292-90-08 10:11:18 Test Item Value Reference Range Interpretation Comments Angle Rapid (test code = Angle 79 degrees 64-80 Rapid) [facility] PasoZvrkgcsYNGKOQOPYT4343-42-91 10:11:18 Test Item Value Reference Range Interpretation Comments INR (test code = INR) 0.98 0.85-1.17 [facility] PasoWenmdzmSTYFITYQNH2003-11-79 10:11:18 Test Item Value Reference Range Interpretation Comments PT (test code = PT) 13.3 s 12.0-14.7 [facility] PasoUgngfgpSZTKDAHXKH4883-50-83 10:11:18 Test Item Value Reference Range Interpretation Comments MPV (test code = MPV) 10.4 7.4-10.4 [facility] PasoBdggblyFHPXZNXNKY6015-82-99 10:11:18 Test Item Value Reference Range Interpretation Comments Platelet (test code = Platelet) 178 133-450 [facility] PasoHpdcrxrKAJTHJYESQ9388-09-25 10:11:18 Test Item Value Reference Range Interpretation Comments RDW (test code = RDW) 13.2 11.5-14.5 [facility] PasoCabdevcKGTQHBCFVR2929-34-81 10:11:18 Test Item Value Reference Range Interpretation Comments MCH (test code = MCH) 30.4 pg 27.0-31.0 [facility] PasoEnbczyeWSUMIWNDYD1017-77-98 10:11:18 Test Item Value Reference Range Interpretation Comments MCHC (test code = MCHC) 33.7 32.0-36.0 [facility] PasoXklwbmtQFUHABNHRX5766-59-23 10:11:18 Test Item Value Reference Range Interpretation Comments Hgb (test code = Hgb) 12.2 12.0-16.0 [facility] PasoGrgvztpFCNDUDTRJJ1051-32-11 10:11:18 Test Item Value Reference Range Interpretation Comments MCV (test code = MCV) 90.1 80.0-98.0 [place] 101186-07-16 10:11:18 Test Item Value Reference Range Interpretation Comments Hct (test code = Hct) 36.2 36.0-48.0 [facility] PasoEytbyizXFJPHZJHHE3063-33-98 10:11:18 Test Item Value Reference Range Interpretation Comments RBC (test code = RBC) 4.02 4.20-5.40 [facility] PasoByiroopDTBNXEOKNM8833-54-96 10:11:18 Test Item Value Reference Range Interpretation Comments WBC (test code = WBC) 10.1 3.7-10.4 [facility] PasoHltybawOCZDZOYWYQ8184-88-61 10:11:18 Test Item Value Reference Range Interpretation Comments PTT (test code = PTT) 35.5 s 22.9-35.8 [facility] PasoCftlaubHEYQTXDPVP1217-98-02 10:11:18 Test Item Value Reference Range Interpretation Comments Eosinophils # (test code 0.2 See_Comment [A utomated message] The = Eosinophils #) system wh h generated this result tra nsmitted reference range : <=0.5. The reference r lily was not used to int erpret this result as normal/abnormal . [facility] PasoLfbgdgnXWZVHWYJPB8570-55-82 10:11:18 Test Item Value Reference Range Interpretation Comments Monocytes (test code = Monocytes) 7.9 2.0-12.0 [facility] PasoUfytyooUOBSBOVCAP5369-01-07 10:11:18 Test Item Value Reference Range Interpretation Comments Eosinophils (test code = 2.5 See_Comment [A utomated message] The Eosinophils) system which ge nerated this result tra nsmitted reference range : <=4.0. The reference r lily was not used to int erpret this result as normal/abnormal . [facility] PasoMsnbhiqSRXKJOZQQG0067-25-27 10:11:18 Test Item Value Reference Range Interpretation Comments Basophils # (test code 0.1 See_Comment [Aut omated message] The = Basophils #) system which generated this result tra nsmitted reference range : <=0.2. The reference r lily was not used to int erpret this result as normal/abnormal . [facility] PasoCquklhbTDXFTGMREA6424-77-36 10:11:18 Test Item Value Reference Range Interpretation Comments Segs (test code = Segs) 65.1 45.0-75.0 [facility] PasoMjtwkpnSHLLVLNXYZ3602-48-23 10:11:18 Test Item Value Reference Range Interpretation Comments Lymphocytes (test code = Lymphocytes) 23.7 20.0-40.0 [facility] PasoJyxovdrSYCVKANKMO2426-29-95 10:11:18 Test Item Value Reference Range Interpretation Comments Lymphocytes # (test code = Lymphocytes 2.4 1.0-5.5 #) [facility] PasoFmwpizfVIGKOQSZHQ3533-00-40 10:11:18 Test Item Value Reference Range Interpretation Comments Monocytes # (test code 0.8 See_Comment [Aut omated message] The = Monocytes #) system which generated this result tra nsmitted reference range : <=0.8. The reference r lily was not used to int erpret this result as normal/abnormal . [facility] PasoTbccqmmGAPUSAIWCS4654-29-83 10:11:18 Test Item Value Reference Range Interpretation Comments Basophils (test code = 0.8 See_Comment [Aut omated message] The Basophils) system which ge nerated this result tra nsmitted reference range : <=1.0. The reference r lily was not used to int erpret this result as normal/abnormal . [facility] PasoXtqzdehIIXWNEPOQT8450-39-94 10:11:18 Test Item Value Reference Range Interpretation Comments Segs-Bands # (test code = Segs-Bands #) 6.6 1.5-8.1 [facility]2016-07-16 10:11:18 Test Item Value Reference Range Interpretation Comments Lactic Acid WB (test code = Lactic Acid 1.3 0.5-2.2 WB) [facility] HospitalLkwgwsoVUUPZUVTGBWZ2466-64-32 10:11:18 Test Item Value Reference Range Interpretation Comments AGAP (test code = AGAP) 11.5 10.0-20.0 [facility] HospitalDgbjixgNDUOEHGHVQIC3890-85-80 10:11:18 Test Item Value Reference Range Interpretation Comments eGFR (test code = eGFR) 87 [facility] HospitalLwjmqxeWSNMFCYIIJPT8500-89-72 10:11:18 Test Item Value Reference Range Interpretation Comments Glucose Lvl (test code = Glucose Lvl) 125 70-99 [facility] HospitalVmiunplEXPNLYHJDVNC8950-51-19 10:11:18 Test Item Value Reference Range Interpretation Comments BUN (test code = BUN) 16 7-22 [facility] HospitalNectompUPTKBWGFWNDI7030-36-18 10:11:18 Test Item Value Reference Range Interpretation Comments Creatinine Lvl (test code = Creatinine 0.74 0.50-1.40 Lvl) [facility] HospitalRnnvgjwYIUYJOOIIUWV4227-18-24 10:11:18 Test Item Value Reference Range Interpretation Comments Potassium Lvl (test code = Potassium 3.5 3.5-5.1 Lvl) [facility] HospitalIidhpveOUDQXHWXABBK8325-22-88 10:11:18 Test Item Value Reference Range Interpretation Comments Chloride Lvl (test code = Chloride Lvl) 104 95-109 [facility] HospitalVybbkxkQLSCIKYOCCPB0097-60-83 10:11:18 Test Item Value Reference Range Interpretation Comments Sodium Lvl (test code = Sodium Lvl) 141 135-145 [facility] HospitalSvjvdkvWFSGUMMROUFG7694-04-47 10:11:18 Test Item Value Reference Range Interpretation Comments CO2 (test code = CO2) 29 24-32 [facility] HospitalQlplfcoLOYSYGGGVVPX2966-47-03 10:11:18 Test Item Value Reference Range Interpretation Comments Calcium Lvl (test code = Calcium Lvl) 9.4 8.5-10.5 [facility] PasoQziviurISGPWXBHOE0428-55-12 10:11:18 Test Item Value Reference Range Interpretation Comments Estimated % Lysis Rapid 1.2 See_Comment [Au tomated message] The (test code = Estimated syste m which generated % Lysis Rapid) this result t ransmitted reference range : <=7.5. The reference r lily was not used to int erpret this result as normal/abnormal . [facility] PasoKqsrmwfUQGRCIKIMR0621-60-81 10:11:18 Test Item Value Reference Range Interpretation Comments K-time Rapid (test code = K-time 0.8 min 0.6-2.3 Rapid) [facility] PasoFadylxwKMQIQSVRYF8165-60-45 10:11:18 Test Item Value Reference Range Interpretation Comments Split Point Rapid (test code = Split 0.4 min Point Rapid) [facility] PasoFbnmfuyFSYCCCCCVR2478-91-42 10:11:18 Test Item Value Reference Range Interpretation Comments ACT (TEG) Rapid (test code = ACT (TEG) 97 s 86-118 Rapid) [facility] PasoMtpcfxmBLCWSFRJHC3225-68-01 10:11:18 Test Item Value Reference Range Interpretation Comments R-time Rapid (test code = R-time 0.5 min 0.4-0.7 Rapid) [facility] PasoGcjrnpeVVATGPTIQE9869-51-75 10:11:18 Test Item Value Reference Range Interpretation Comments G-value Rapid (test code = G-value 12.5 5.0-11.6 Rapid) [facility] PasoQuijsbqHQTRSXXIPN9841-88-12 10:11:18 Test Item Value Reference Range Interpretation Comments Max Amplitude Rapid (test code = Max 72 mm 52-71 Amplitude Rapid) [facility] PasoYagdhfpUOBRXRCQOU5325-46-80 10:11:18 Test Item Value Reference Range Interpretation Comments Angle Rapid (test code = Angle 79 degrees 64-80 Rapid) [facility] PasoCjkzzcrTNYDRMEYQC7971-97-06 10:11:18 Test Item Value Reference Range Interpretation Comments INR (test code = INR) 0.98 0.85-1.17 [facility] PasoJocijmqVJVLFXNKJN3988-22-51 10:11:18 Test Item Value Reference Range Interpretation Comments PT (test code = PT) 13.3 s 12.0-14.7 [facility] PasoCmzgznsFDIHAACVRL7239-05-51 10:11:18 Test Item Value Reference Range Interpretation Comments MPV (test code = MPV) 10.4 7.4-10.4 [facility] PasoOfmklbxBZHUFNOHQA4608-91-46 10:11:18 Test Item Value Reference Range Interpretation Comments Platelet (test code = Platelet) 178 133-450 [facility] PasoBomldgzFTKHMYHUQA8162-14-45 10:11:18 Test Item Value Reference Range Interpretation Comments RDW (test code = RDW) 13.2 11.5-14.5 [facility] PasoFnrvgtrAHZKVFPWSU5160-24-52 10:11:18 Test Item Value Reference Range Interpretation Comments MCH (test code = MCH) 30.4 pg 27.0-31.0 [facility] PasoIqczorjDSDOXUFKEE4578-15-59 10:11:18 Test Item Value Reference Range Interpretation Comments MCHC (test code = MCHC) 33.7 32.0-36.0 [facility] PasoUjlddvhNKKGNWAPPD1572-01-14 10:11:18 Test Item Value Reference Range Interpretation Comments Hgb (test code = Hgb) 12.2 12.0-16.0 [facility] PasoRnutzreIWRELETXJL9514-97-71 10:11:18 Test Item Value Reference Range Interpretation Comments MCV (test code = MCV) 90.1 80.0-98.0 [facility] PasoRwtydazALKWBFIHDE3608-18-17 10:11:18 Test Item Value Reference Range Interpretation Comments Hct (test code = Hct) 36.2 36.0-48.0 [facility] PasoQpqbjzhXACQSBNCSY5859-31-85 10:11:18 Test Item Value Reference Range Interpretation Comments RBC (test code = RBC) 4.02 4.20-5.40 [facility] PasoAlheleuJOYPMFSKPT8749-05-98 10:11:18 Test Item Value Reference Range Interpretation Comments WBC (test code = WBC) 10.1 3.7-10.4 [facility] PasoRgsstwdKMTXJJADKC8925-64-01 10:11:18 Test Item Value Reference Range Interpretation Comments PTT (test code = PTT) 35.5 s 22.9-35.8 [facility] PasoNgdczdiDSYFJVWVWH4642-06-74 10:11:18 Test Item Value Reference Range Interpretation Comments Eosinophils # (test code 0.2 See_Comment [A utomated message] The = Eosinophils #) system whic h generated this result tra nsmitted reference range : <=0.5. The reference r lily was not used to int erpret this result as normal/abnormal . [facility] PasoDsmsoneABOADWFPAM3092-36-74 10:11:18 Test Item Value Reference Range Interpretation Comments Monocytes (test code = Monocytes) 7.9 2.0-12.0 [facility] PasoDccfvqhUKZTJUTVZW9007-83-95 10:11:18 Test Item Value Reference Range Interpretation Comments Eosinophils (test code = 2.5 See_Comment [A utomated message] The Eosinophils) system which ge nerated this result tra nsmitted reference range : <=4.0. The reference r lily was not used to int erpret this result as normal/abnormal . [facility] PasoYmgaorsLFGNZHOYGV6171-21-67 10:11:18 Test Item Value Reference Range Interpretation Comments Basophils # (test code 0.1 See_Comment [Aut omated message] The = Basophils #) system which generated this result tra nsmitted reference range : <=0.2. The reference r lily was not used to int erpret this result as normal/abnormal . [facility] PasoMhytumuWYZZWXZCTA5307-08-33 10:11:18 Test Item Value Reference Range Interpretation Comments Segs (test code = Segs) 65.1 45.0-75.0 [facility] PasoVvphuzzMJFHLFTIRK3373-62-97 10:11:18 Test Item Value Reference Range Interpretation Comments Lymphocytes (test code = Lymphocytes) 23.7 20.0-40.0 [facility] PasoCesdvjzOLPJJURONF1170-03-40 10:11:18 Test Item Value Reference Range Interpretation Comments Lymphocytes # (test code = Lymphocytes 2.4 1.0-5.5 #) [facility] PasoXsxxhzvDAQBYWKADK2837-82-77 10:11:18 Test Item Value Reference Range Interpretation Comments Monocytes # (test code 0.8 See_Comment [Aut omated message] The = Monocytes #) system which generated this result tra nsmitted reference range : <=0.8. The reference r lily was not used to int erpret this result as normal/abnormal . [facility] PasoMwwsbfoQORRGNZMSL7034-59-95 10:11:18 Test Item Value Reference Range Interpretation Comments Basophils (test code = 0.8 See_Comment [Aut omated message] The Basophils) system which ge nerated this result tra nsmitted reference range : <=1.0. The reference r lily was not used to int erpret this result as normal/abnormal . [facility] PasoWuepmlkLWUSTRRFWR4611-61-82 10:11:18 Test Item Value Reference Range Interpretation Comments Segs-Bands # (test code = Segs-Bands #) 6.6 1.5-8.1 [facility]2016-07-16 10:11:18 Test Item Value Reference Range Interpretation Comments Lactic Acid WB (test code = Lactic Acid 1.3 0.5-2.2 WB) [facility] HospitalEmnsthhJCBCPHGOKWPV3026-57-11 10:11:18 Test Item Value Reference Range Interpretation Comments AGAP (test code = AGAP) 11.5 10.0-20.0 [facility] HospitalIgomjmmZVEORWOJRQPA3375-07-81 10:11:18 Test Item Value Reference Range Interpretation Comments eGFR (test code = eGFR) 87 [facility] HospitalEugfggzQLRJAKOLWFHO9361-77-32 10:11:18 Test Item Value Reference Range Interpretation Comments Glucose Lvl (test code = Glucose Lvl) 125 70-99 [facility] HospitalYvsaycxWESCAHHBAZVZ9729-64-53 10:11:18 Test Item Value Reference Range Interpretation Comments BUN (test code = BUN) 16 7-22 [facility] HospitalWkghnudRZMCRSTWVVJD0506-30-30 10:11:18 Test Item Value Reference Range Interpretation Comments Creatinine Lvl (test code = Creatinine 0.74 0.50-1.40 Lvl) [facility] HospitalSdvdvcbOTMIJHTBJVEM8465-00-35 10:11:18 Test Item Value Reference Range Interpretation Comments Potassium Lvl (test code = Potassium 3.5 3.5-5.1 Lvl) [facility] HospitalMaaybrlSXUXHUGNQLVB6966-53-12 10:11:18 Test Item Value Reference Range Interpretation Comments Chloride Lvl (test code = Chloride Lvl) 104 95-109 [facility] HospitalChjcnktRGQQLTDEOESF9399-93-97 10:11:18 Test Item Value Reference Range Interpretation Comments Sodium Lvl (test code = Sodium Lvl) 141 135-145 [facility] HospitalLxeknxuPEMNYYXBEJUS9221-09-32 10:11:18 Test Item Value Reference Range Interpretation Comments CO2 (test code = CO2) 29 24-32 [facility] HospitalKqdbiyoEXQWKXIRBVYW5732-08-89 10:11:18 Test Item Value Reference Range Interpretation Comments Calcium Lvl (test code = Calcium Lvl) 9.4 8.5-10.5 [facility] PasoVrcckbdOVIZCJBEKY0495-87-44 10:11:18 Test Item Value Reference Range Interpretation Comments Estimated % Lysis Rapid 1.2 See_Comment [Au tomated message] The (test code = Estimated syste m which generated % Lysis Rapid) this result t ransmitted reference range : <=7.5. The reference r lily was not used to int erpret this result as normal/abnormal . [facility] PasoPozphcoHCKFWCOWBS7994-79-32 10:11:18 Test Item Value Reference Range Interpretation Comments K-time Rapid (test code = K-time 0.8 min 0.6-2.3 Rapid) [facility] PasoQfmmxmiDGBQXCSMOA0811-88-66 10:11:18 Test Item Value Reference Range Interpretation Comments Split Point Rapid (test code = Split 0.4 min Point Rapid) [facility] PasoFvryzkqAXISVYQBXS9480-87-10 10:11:18 Test Item Value Reference Range Interpretation Comments ACT (TEG) Rapid (test code = ACT (TEG) 97 s 86-118 Rapid) [facility] PasoNjklhkyKPCFZHGRTO7892-76-46 10:11:18 Test Item Value Reference Range Interpretation Comments R-time Rapid (test code = R-time 0.5 min 0.4-0.7 Rapid) [facility] PasoWxdcgurAHHRKGZFBC6131-04-16 10:11:18 Test Item Value Reference Range Interpretation Comments G-value Rapid (test code = G-value 12.5 5.0-11.6 Rapid) [facility] PasoPaijqimQETNJMOMTM5531-59-36 10:11:18 Test Item Value Reference Range Interpretation Comments Max Amplitude Rapid (test code = Max 72 mm 52-71 Amplitude Rapid) [facility] PasoIrtcppmYXQXQTWMXY9071-48-65 10:11:18 Test Item Value Reference Range Interpretation Comments Angle Rapid (test code = Angle 79 degrees 64-80 Rapid) [facility] PasoQtkzxdtVAJHHTSCCC6087-33-40 10:11:18 Test Item Value Reference Range Interpretation Comments INR (test code = INR) 0.98 0.85-1.17 [facility] PasoPemazaxQWTIWOENCJ6679-72-34 10:11:18 Test Item Value Reference Range Interpretation Comments PT (test code = PT) 13.3 s 12.0-14.7 [facility] PasoBhdahdvYQGPAMZNGS0915-59-86 10:11:18 Test Item Value Reference Range Interpretation Comments MPV (test code = MPV) 10.4 7.4-10.4 [facility] PasoCjmfgzuMULEWLIPXO1715-43-19 10:11:18 Test Item Value Reference Range Interpretation Comments Platelet (test code = Platelet) 178 133-450 [facility] PasoXwlmtzuAWQQAPYFNT6577-09-45 10:11:18 Test Item Value Reference Range Interpretation Comments RDW (test code = RDW) 13.2 11.5-14.5 [facility] PasoQdlwkvdVQLOCKOUBW6248-24-23 10:11:18 Test Item Value Reference Range Interpretation Comments MCH (test code = MCH) 30.4 pg 27.0-31.0 [facility] PasoYnccacbOOQZNKRESQ5296-53-18 10:11:18 Test Item Value Reference Range Interpretation Comments MCHC (test code = MCHC) 33.7 32.0-36.0 [facility] PasoXuipdhdULGVQWWQFX2261-27-36 10:11:18 Test Item Value Reference Range Interpretation Comments Hgb (test code = Hgb) 12.2 12.0-16.0 [facility] PasoBdgcoozJHRHNNYGLR0104-29-30 10:11:18 Test Item Value Reference Range Interpretation Comments MCV (test code = MCV) 90.1 80.0-98.0 [facility] PasoXngavssGGMCUMOITH1011-04-85 10:11:18 Test Item Value Reference Range Interpretation Comments Hct (test code = Hct) 36.2 36.0-48.0 [facility] PasoTgllqbyURXJYKJIYR9920-61-20 10:11:18 Test Item Value Reference Range Interpretation Comments RBC (test code = RBC) 4.02 4.20-5.40 [facility] PasoBafiyetTDOCHDBJLQ2938-82-86 10:11:18 Test Item Value Reference Range Interpretation Comments WBC (test code = WBC) 10.1 3.7-10.4 [facility] PasoThxtcltNDWJDQXWGW8182-93-65 10:11:18 Test Item Value Reference Range Interpretation Comments PTT (test code = PTT) 35.5 s 22.9-35.8 [facility] PasoSjpoodvCQRHJCLWWB4710-54-32 10:11:18 Test Item Value Reference Range Interpretation Comments Eosinophils # (test code 0.2 See_Comment [A utomated message] The = Eosinophils #) system whic h generated this result tra nsmitted reference range : <=0.5. The reference r lily was not used to int erpret this result as normal/abnormal . [facility] PasoMitgakaJXJWSOJPQY1861-70-89 10:11:18 Test Item Value Reference Range Interpretation Comments Monocytes (test code = Monocytes) 7.9 2.0-12.0 [facility] PasoCfswnagFKQUWIECMW1697-94-33 10:11:18 Test Item Value Reference Range Interpretation Comments Eosinophils (test code = 2.5 See_Comment [A utomated message] The Eosinophils) system which ge nerated this result tra nsmitted reference range : <=4.0. The reference r lily was not used to int erpret this result as normal/abnormal . [facility] PasoZkuvsumWBMMUYMTUQ6568-71-23 10:11:18 Test Item Value Reference Range Interpretation Comments Basophils # (test code 0.1 See_Comment [Aut omated message] The = Basophils #) system which generated this result tra nsmitted reference range : <=0.2. The reference r lily was not used to int erpret this result as normal/abnormal . [facility] PasoUqddcokFAWSTXZZPA4128-00-17 10:11:18 Test Item Value Reference Range Interpretation Comments Segs (test code = Segs) 65.1 45.0-75.0 [facility] PasoKlfyldoXGGWJPSCCX6822-48-72 10:11:18 Test Item Value Reference Range Interpretation Comments Lymphocytes (test code = Lymphocytes) 23.7 20.0-40.0 [facility] PasoEjkofzeTWMNXYWRAC6959-45-58 10:11:18 Test Item Value Reference Range Interpretation Comments Lymphocytes # (test code = Lymphocytes 2.4 1.0-5.5 #) [facility] PasoTopnbleLBKENIJOYD8866-84-49 10:11:18 Test Item Value Reference Range Interpretation Comments Monocytes # (test code 0.8 See_Comment [Aut omated message] The = Monocytes #) system which generated this result tra nsmitted reference range : <=0.8. The reference r lily was not used to int erpret this result as normal/abnormal . [facility] PasoLzgfqkfVLRDYLNDMP5245-61-81 10:11:18 Test Item Value Reference Range Interpretation Comments Basophils (test code = 0.8 See_Comment [Aut omated message] The Basophils) system which ge nerated this result tra nsmitted reference range : <=1.0. The reference r lily was not used to int erpret this result as normal/abnormal . [facility] PasoZicwmffOQOTHRBPBJ6350-62-31 10:11:18 Test Item Value Reference Range Interpretation Comments Segs-Bands # (test code = Segs-Bands #) 6.6 1.5-8.1 [facility]2016-07-16 10:11:18 Test Item Value Reference Range Interpretation Comments Lactic Acid WB (test code = Lactic Acid 1.3 0.5-2.2 WB) [facility] HospitalPteyfgjIDTBIKKKGRDZ1140-33-17 10:11:18 Test Item Value Reference Range Interpretation Comments AGAP (test code = AGAP) 11.5 10.0-20.0 [facility] HospitalRzxbvcsELEFLOBSVGLY6684-16-54 10:11:18 Test Item Value Reference Range Interpretation Comments eGFR (test code = eGFR) 87 [facility] HospitalWczrbpwOFRNBESOGLIJ8819-32-11 10:11:18 Test Item Value Reference Range Interpretation Comments Glucose Lvl (test code = Glucose Lvl) 125 70-99 [facility] HospitalNfdwakbIVCAAFAGOFIQ8222-91-50 10:11:18 Test Item Value Reference Range Interpretation Comments BUN (test code = BUN) 16 7-22 [facility] HospitalBgnjjkyNNYROEKFZMBJ0344-55-17 10:11:18 Test Item Value Reference Range Interpretation Comments Creatinine Lvl (test code = Creatinine 0.74 0.50-1.40 Lvl) [facility] HospitalPvioiumYALEZBKUQGAD4756-62-47 10:11:18 Test Item Value Reference Range Interpretation Comments Potassium Lvl (test code = Potassium 3.5 3.5-5.1 Lvl) [facility] HospitalIhnizebOVUSLMZWQCLY4581-25-08 10:11:18 Test Item Value Reference Range Interpretation Comments Chloride Lvl (test code = Chloride Lvl) 104 95-109 [facility] HospitalHpdnvgeSCCQOKPSQESI8860-56-04 10:11:18 Test Item Value Reference Range Interpretation Comments Sodium Lvl (test code = Sodium Lvl) 141 135-145 [facility] HospitalWfytvrkMMXQASFUECIJ5715-02-38 10:11:18 Test Item Value Reference Range Interpretation Comments CO2 (test code = CO2) 29 24-32 [facility] HospitalXnweeskFEDZAVRHGBMY7882-09-24 10:11:18 Test Item Value Reference Range Interpretation Comments Calcium Lvl (test code = Calcium Lvl) 9.4 8.5-10.5 [facility] PasoFkjktqaDMXJMTVCSV3161-64-80 10:11:18 Test Item Value Reference Range Interpretation Comments Estimated % Lysis Rapid 1.2 See_Comment [Au tomated message] The (test code = Estimated syste m which generated % Lysis Rapid) this result t ransmitted reference range : <=7.5. The reference r lily was not used to int erpret this result as normal/abnormal . [facility] PasoPapapqjBCCHEUIQFV7943-59-19 10:11:18 Test Item Value Reference Range Interpretation Comments K-time Rapid (test code = K-time 0.8 min 0.6-2.3 Rapid) [facility] PasoIokbftrWULMDZUIZV0208-00-36 10:11:18 Test Item Value Reference Range Interpretation Comments Split Point Rapid (test code = Split 0.4 min Point Rapid) [facility] PasoPwlswvrLDMQWBANOM1260-13-16 10:11:18 Test Item Value Reference Range Interpretation Comments ACT (TEG) Rapid (test code = ACT (TEG) 97 s 86-118 Rapid) [facility] PasoUzmfdjeEJXTUKZICT8713-73-36 10:11:18 Test Item Value Reference Range Interpretation Comments R-time Rapid (test code = R-time 0.5 min 0.4-0.7 Rapid) [facility] PasoGuwwekjUVPCMAJWDC1989-03-67 10:11:18 Test Item Value Reference Range Interpretation Comments G-value Rapid (test code = G-value 12.5 5.0-11.6 Rapid) [facility] PasoWknyxhbFIWMNJSVWY3161-94-63 10:11:18 Test Item Value Reference Range Interpretation Comments Max Amplitude Rapid (test code = Max 72 mm 52-71 Amplitude Rapid) [facility] PasoNkehawtKBGHHSFDIX4510-97-41 10:11:18 Test Item Value Reference Range Interpretation Comments Angle Rapid (test code = Angle 79 degrees 64-80 Rapid) [facility] PasoEtsamxnDTQMPSTOVY4223-20-12 10:11:18 Test Item Value Reference Range Interpretation Comments INR (test code = INR) 0.98 0.85-1.17 [facility] PasoBlxwlebYGYIWSIASW4473-47-64 10:11:18 Test Item Value Reference Range Interpretation Comments PT (test code = PT) 13.3 s 12.0-14.7 [facility] PasoOcwkrqdDEERCVYVZQ4913-64-24 10:11:18 Test Item Value Reference Range Interpretation Comments MPV (test code = MPV) 10.4 7.4-10.4 [facility] PasoHbecgfjOABSNTRYDI6666-33-51 10:11:18 Test Item Value Reference Range Interpretation Comments Platelet (test code = Platelet) 178 133-450 [facility] PasoYasdiqmGFBCCALWLK0459-57-47 10:11:18 Test Item Value Reference Range Interpretation Comments RDW (test code = RDW) 13.2 11.5-14.5 [facility] PasoCubyojkQSBWDPVRRB1572-80-79 10:11:18 Test Item Value Reference Range Interpretation Comments MCH (test code = MCH) 30.4 pg 27.0-31.0 [facility] PasoTvhxnknUESGSBVATM9371-51-04 10:11:18 Test Item Value Reference Range Interpretation Comments MCHC (test code = MCHC) 33.7 32.0-36.0 [facility] PasoKkldqjfIWSTJAIBKN3507-03-39 10:11:18 Test Item Value Reference Range Interpretation Comments Hgb (test code = Hgb) 12.2 12.0-16.0 [facility] PasoLmpixqnQQCIGQEQEG7180-54-12 10:11:18 Test Item Value Reference Range Interpretation Comments MCV (test code = MCV) 90.1 80.0-98.0 [facility] PasoQmfvhgiUJZISKQGZL0289-25-73 10:11:18 Test Item Value Reference Range Interpretation Comments Hct (test code = Hct) 36.2 36.0-48.0 [facility] PasoEviilzuIROSBCQVGI4304-69-87 10:11:18 Test Item Value Reference Range Interpretation Comments RBC (test code = RBC) 4.02 4.20-5.40 [facility] PasoEtwrqvkXCJXQOCFPS4123-34-11 10:11:18 Test Item Value Reference Range Interpretation Comments WBC (test code = WBC) 10.1 3.7-10.4 [facility] PasoRwpldvoDCLEYCNRKD4332-57-33 10:11:18 Test Item Value Reference Range Interpretation Comments PTT (test code = PTT) 35.5 s 22.9-35.8 [facility] PasoDlrqerzUDSBLRDLVS2275-84-95 10:11:18 Test Item Value Reference Range Interpretation Comments Eosinophils # (test code 0.2 See_Comment [A utomated message] The = Eosinophils #) system whic h generated this result tra nsmitted reference range : <=0.5. The reference r lily was not used to int erpret this result as normal/abnormal . [facility] PasoDlvwolzJJNVZKUIHH9842-24-27 10:11:18 Test Item Value Reference Range Interpretation Comments Monocytes (test code = Monocytes) 7.9 2.0-12.0 [facility] PasoGngqgrkOJWESFBBST3178-68-47 10:11:18 Test Item Value Reference Range Interpretation Comments Eosinophils (test code = 2.5 See_Comment [A utomated message] The Eosinophils) system which ge nerated this result tra nsmitted reference range : <=4.0. The reference r lily was not used to int erpret this result as normal/abnormal . [facility] PasoPfzubpiRMXYHRANRQ3431-53-75 10:11:18 Test Item Value Reference Range Interpretation Comments Basophils # (test code 0.1 See_Comment [Aut omated message] The = Basophils #) system which generated this result tra nsmitted reference range : <=0.2. The reference r lily was not used to int erpret this result as normal/abnormal . [facility] PasoOurfbhgVMXARMWOLX8228-66-68 10:11:18 Test Item Value Reference Range Interpretation Comments Segs (test code = Segs) 65.1 45.0-75.0 [facility] PasoGgmcseeIXKFJEEKOY0398-45-69 10:11:18 Test Item Value Reference Range Interpretation Comments Lymphocytes (test code = Lymphocytes) 23.7 20.0-40.0 [facility] PasoSotqeyoSQKYEREMNL6972-07-83 10:11:18 Test Item Value Reference Range Interpretation Comments Lymphocytes # (test code = Lymphocytes 2.4 1.0-5.5 #) [facility] PasoMoklzizIKHHMBSCQO3674-42-73 10:11:18 Test Item Value Reference Range Interpretation Comments Monocytes # (test code 0.8 See_Comment [Aut omated message] The = Monocytes #) system which generated this result tra nsmitted reference range : <=0.8. The reference r lily was not used to int erpret this result as normal/abnormal . [facility] PasoMsnyhzrFHHTVZYZFW9816-22-86 10:11:18 Test Item Value Reference Range Interpretation Comments Basophils (test code = 0.8 See_Comment [Aut omated message] The Basophils) system which ge nerated this result tra nsmitted reference range : <=1.0. The reference r lily was not used to int erpret this result as normal/abnormal . [facility] PasoHhlwtpiDJVHYASSDD8448-18-15 10:11:18 Test Item Value Reference Range Interpretation Comments Segs-Bands # (test code = Segs-Bands #) 6.6 1.5-8.1 [facility]2016-07-16 10:11:18 Test Item Value Reference Range Interpretation Comments Lactic Acid WB (test code = Lactic Acid 1.3 0.5-2.2 WB) [facility] HospitalYkdhgyuYOFMOBJWQMYD1678-94-54 10:11:18 Test Item Value Reference Range Interpretation Comments AGAP (test code = AGAP) 11.5 10.0-20.0 [facility]JqcjynhQQMXEHXTMULQ2478-88-25 10:11:18 Test Item Value Reference Range Interpretation Comments eGFR (test code = eGFR) 87 [facility] HospitalBaawbgqBNDYCYMHIKCE3611-83-98 10:11:18 Test Item Value Reference Range Interpretation Comments Glucose Lvl (test code = Glucose Lvl) 125 70-99 [facility] HospitalCopbticZFEUBWWLQLON4805-45-14 10:11:18 Test Item Value Reference Range Interpretation Comments BUN (test code = BUN) 16 7-22 [facility] HospitalNjabhmjNFCTKEIVNDQD9627-14-61 10:11:18 Test Item Value Reference Range Interpretation Comments Creatinine Lvl (test code = Creatinine 0.74 0.50-1.40 Lvl) [facility] HospitalRcvnmvvPGFZOAPQIILU7362-88-89 10:11:18 Test Item Value Reference Range Interpretation Comments Potassium Lvl (test code = Potassium 3.5 3.5-5.1 Lvl) [facility] HospitalLllibgaEOQCOTJUZSAZ1768-72-05 10:11:18 Test Item Value Reference Range Interpretation Comments Chloride Lvl (test code = Chloride Lvl) 104 95-109 [facility] HospitalLjvdhvfEKLTOSVTIEVQ0839-79-24 10:11:18 Test Item Value Reference Range Interpretation Comments Sodium Lvl (test code = Sodium Lvl) 141 135-145 [facility] HospitalJpxjphzOMSADOXBBBNY7332-11-85 10:11:18 Test Item Value Reference Range Interpretation Comments CO2 (test code = CO2) 29 24-32 [facility] HospitalQhgohjxGVNHQALOWZNE6482-03-08 10:11:18 Test Item Value Reference Range Interpretation Comments Calcium Lvl (test code = Calcium Lvl) 9.4 8.5-10.5 [facility] PasoUvecohhMTTAXWXILT6017-45-04 10:11:18 Test Item Value Reference Range Interpretation Comments Estimated % Lysis Rapid 1.2 See_Comment [Au tomated message] The (test code = Estimated syste m which generated % Lysis Rapid) this result t ransmitted reference range : <=7.5. The reference r lily was not used to int erpret this result as normal/abnormal . [facility] PasoPtauhfzCLUDKZUBYH4055-24-67 10:11:18 Test Item Value Reference Range Interpretation Comments K-time Rapid (test code = K-time 0.8 min 0.6-2.3 Rapid) [facility] PasoWhoezubWIAOODWIHX8883-36-93 10:11:18 Test Item Value Reference Range Interpretation Comments Split Point Rapid (test code = Split 0.4 min Point Rapid) [facility] PasoDhcxejcIRJFPOBCRG7686-52-94 10:11:18 Test Item Value Reference Range Interpretation Comments ACT (TEG) Rapid (test code = ACT (TEG) 97 s 86-118 Rapid) [facility] PasoBuehbtjVRCUJKXANB5694-15-61 10:11:18 Test Item Value Reference Range Interpretation Comments R-time Rapid (test code = R-time 0.5 min 0.4-0.7 Rapid) [facility] PasoUsauefhNTLKMZONUY6781-50-92 10:11:18 Test Item Value Reference Range Interpretation Comments G-value Rapid (test code = G-value 12.5 5.0-11.6 Rapid) [facility] PasoYwnoqkkMANZMOWIOO9820-96-60 10:11:18 Test Item Value Reference Range Interpretation Comments Max Amplitude Rapid (test code = Max 72 mm 52-71 Amplitude Rapid) [facility] PasoAqjgsfyCHWGZUYYRH3727-33-79 10:11:18 Test Item Value Reference Range Interpretation Comments Angle Rapid (test code = Angle 79 degrees 64-80 Rapid) [facility] PasoVqqdusoCFRKTJLYGA6794-15-39 10:11:18 Test Item Value Reference Range Interpretation Comments INR (test code = INR) 0.98 0.85-1.17 [facility] PasoRtepnfsNAZDJTFABD7794-20-54 10:11:18 Test Item Value Reference Range Interpretation Comments PT (test code = PT) 13.3 s 12.0-14.7 [facility] PasoWqmnzmjWNWMXHAYGK4819-42-05 10:11:18 Test Item Value Reference Range Interpretation Comments MPV (test code = MPV) 10.4 7.4-10.4 [facility] PasoAsbwhfhSKNUEGIOVV2435-91-67 10:11:18 Test Item Value Reference Range Interpretation Comments Platelet (test code = Platelet) 178 133-450 [facility] PasoNhbcatjVGJKRWCLOT0634-30-97 10:11:18 Test Item Value Reference Range Interpretation Comments RDW (test code = RDW) 13.2 11.5-14.5 [facility] PasoUraixjfPPVKEFOBFY6422-16-08 10:11:18 Test Item Value Reference Range Interpretation Comments MCH (test code = MCH) 30.4 pg 27.0-31.0 [facility] PasoKntijqyQRNQHDAVEP0072-06-17 10:11:18 Test Item Value Reference Range Interpretation Comments MCHC (test code = MCHC) 33.7 32.0-36.0 [facility] PasoXkvtcuoFJSTBECJPG4120-94-51 10:11:18 Test Item Value Reference Range Interpretation Comments Hgb (test code = Hgb) 12.2 12.0-16.0 [facility] PasoRwhldwtZWNXFFJYUR3551-71-10 10:11:18 Test Item Value Reference Range Interpretation Comments MCV (test code = MCV) 90.1 80.0-98.0 [facility] PasoFxewzxzNMLECEAOPM3199-60-07 10:11:18 Test Item Value Reference Range Interpretation Comments Hct (test code = Hct) 36.2 36.0-48.0 [facility] PasoIbubkvdZIOWAKLCBL3230-37-03 10:11:18 Test Item Value Reference Range Interpretation Comments RBC (test code = RBC) 4.02 4.20-5.40 [facility] PasoRvualmfLKYTVKUZRU7660-73-71 10:11:18 Test Item Value Reference Range Interpretation Comments WBC (test code = WBC) 10.1 3.7-10.4 [facility] PasoNuyasxoCVTRHIOPFY8196-36-23 10:11:18 Test Item Value Reference Range Interpretation Comments PTT (test code = PTT) 35.5 s 22.9-35.8 [facility] PasoUpcvrrmOBCPLXCQET6989-82-72 10:11:18 Test Item Value Reference Range Interpretation Comments Eosinophils # (test code 0.2 See_Comment [A utomated message] The = Eosinophils #) system whic h generated this result tra nsmitted reference range : <=0.5. The reference r lily was not used to int erpret this result as normal/abnormal . [facility] PasoRmzrepxDJUJCKZBWX7176-57-81 10:11:18 Test Item Value Reference Range Interpretation Comments Monocytes (test code = Monocytes) 7.9 2.0-12.0 [facility] PasoBirofptJIIGNTKRLF2323-05-84 10:11:18 Test Item Value Reference Range Interpretation Comments Eosinophils (test code = 2.5 See_Comment [A utomated message] The Eosinophils) system which ge nerated this result tra nsmitted reference range : <=4.0. The reference r lily was not used to int erpret this result as normal/abnormal . [facility] PasoVmedskqFBMQHBXPEG3686-34-07 10:11:18 Test Item Value Reference Range Interpretation Comments Basophils # (test code 0.1 See_Comment [Aut omated message] The = Basophils #) system which generated this result tra nsmitted reference range : <=0.2. The reference r lily was not used to int erpret this result as normal/abnormal . [facility] PasoMlutojnGBMFTXEIXA4993-07-07 10:11:18 Test Item Value Reference Range Interpretation Comments Segs (test code = Segs) 65.1 45.0-75.0 [facility] PasoPljvfyzBVORZYMUCZ4064-26-12 10:11:18 Test Item Value Reference Range Interpretation Comments Lymphocytes (test code = Lymphocytes) 23.7 20.0-40.0 [facility] PasoCcwsverTLPTQIHRBK2021-01-30 10:11:18 Test Item Value Reference Range Interpretation Comments Lymphocytes # (test code = Lymphocytes 2.4 1.0-5.5 #) [facility] PasoNacjnagZXVJIGLFNB1943-58-48 10:11:18 Test Item Value Reference Range Interpretation Comments Monocytes # (test code 0.8 See_Comment [Aut omated message] The = Monocytes #) system which generated this result tra nsmitted reference range : <=0.8. The reference r lily was not used to int erpret this result as normal/abnormal . [facility] PasoPgpyoiwGXUYGAUCOL9372-52-25 10:11:18 Test Item Value Reference Range Interpretation Comments Basophils (test code = 0.8 See_Comment [Aut omated message] The Basophils) system which ge nerated this result tra nsmitted reference range : <=1.0. The reference r lily was not used to int erpret this result as normal/abnormal . [facility] PasoOowszdyFHAPCBFRJG6937 10:11:18 Test Item Value Reference Range Interpretation Comments Segs-Bands # (test code = Segs-Bands #) 6.6 1.5-8.1 [facility]2016-07-16 10:11:18 Test Item Value Reference Range Interpretation Comments Lactic Acid WB (test code = Lactic Acid 1.3 0.5-2.2 WB) [facility] HospitalElsdbhyROZMIQCIAEPV8714-33-51 10:11:18 Test Item Value Reference Range Interpretation Comments AGAP (test code = AGAP) 11.5 10.0-20.0 [facility] HospitalQhzxgdfPWFCBCHDYWTR6007-92-11 10:11:18 Test Item Value Reference Range Interpretation Comments eGFR (test code = eGFR) 87 [facility] HospitalKpthtkgWMNSQEUVNDUR9442-71-22 10:11:18 Test Item Value Reference Range Interpretation Comments Glucose Lvl (test code = Glucose Lvl) 125 70-99 [facility] HospitalNvtsgrnETUQZWZPTPLJ0922-87-81 10:11:18 Test Item Value Reference Range Interpretation Comments BUN (test code = BUN) 16 7-22 [facility] HospitalWwsdnzuOAKVJTEEVKUN6502-53-15 10:11:18 Test Item Value Reference Range Interpretation Comments Creatinine Lvl (test code = Creatinine 0.74 0.50-1.40 Lvl) [facility] HospitalGnupnnsXKDVDXRBZSJR7732-29-72 10:11:18 Test Item Value Reference Range Interpretation Comments Potassium Lvl (test code = Potassium 3.5 3.5-5.1 Lvl) [facility] HospitalHtfpujvYGOMYKFCXBHC6993-06-56 10:11:18 Test Item Value Reference Range Interpretation Comments Chloride Lvl (test code = Chloride Lvl) 104 95-109 [facility] HospitalVnkzaueBIHARNOBOUZW1165-42-27 10:11:18 Test Item Value Reference Range Interpretation Comments Sodium Lvl (test code = Sodium Lvl) 141 135-145 [facility] HospitalEbablccVEHWKTQJZQZR1723-14-98 10:11:18 Test Item Value Reference Range Interpretation Comments CO2 (test code = CO2) 29 24-32 [facility] HospitalEuzysvkDIYEYFIDSMKN7449-80-42 10:11:18 Test Item Value Reference Range Interpretation Comments Calcium Lvl (test code = Calcium Lvl) 9.4 8.5-10.5 [facility] PasoVqtrkxjMDXCFYINZY9481-77-56 10:11:18 Test Item Value Reference Range Interpretation Comments Estimated % Lysis Rapid 1.2 See_Comment [Au tomated message] The (test code = Estimated syste m which generated % Lysis Rapid) this result t ransmitted reference range : <=7.5. The reference r lily was not used to int erpret this result as normal/abnormal . [facility] PasoAxtbiidUMLBIBEDWL1412-73-97 10:11:18 Test Item Value Reference Range Interpretation Comments K-time Rapid (test code = K-time 0.8 min 0.6-2.3 Rapid) [facility] PasoGxiaqrfUTXEZZTMKP3852-07-02 10:11:18 Test Item Value Reference Range Interpretation Comments Split Point Rapid (test code = Split 0.4 min Point Rapid) [facility] PasoJdrsbkzYZWQIFDHSQ8042-43-70 10:11:18 Test Item Value Reference Range Interpretation Comments ACT (TEG) Rapid (test code = ACT (TEG) 97 s 86-118 Rapid) [facility] PasoYwkzgvvJVOCFPIZYX7014-64-53 10:11:18 Test Item Value Reference Range Interpretation Comments R-time Rapid (test code = R-time 0.5 min 0.4-0.7 Rapid) [facility] PasoOvauzvnURFLYQBWXL0152-49-15 10:11:18 Test Item Value Reference Range Interpretation Comments G-value Rapid (test code = G-value 12.5 5.0-11.6 Rapid) [facility] PasoXzefeknLUVWKYACIK8222-43-16 10:11:18 Test Item Value Reference Range Interpretation Comments Max Amplitude Rapid (test code = Max 72 mm 52-71 Amplitude Rapid) [facility] PasoCdsctkjCLMXLHBFZY1328-85-24 10:11:18 Test Item Value Reference Range Interpretation Comments Angle Rapid (test code = Angle 79 degrees 64-80 Rapid) [facility] PasoBjllgoeLDFQLANYQT8395-87-69 10:11:18 Test Item Value Reference Range Interpretation Comments INR (test code = INR) 0.98 0.85-1.17 [facility] PasoQbsyrucMWWRAIQIKQ7650-26-63 10:11:18 Test Item Value Reference Range Interpretation Comments PT (test code = PT) 13.3 s 12.0-14.7 [facility] PasoWoyeblcREHHTKOELY0436-87-53 10:11:18 Test Item Value Reference Range Interpretation Comments MPV (test code = MPV) 10.4 7.4-10.4 [facility] PasoViwfbqeUODWQTCOHW2105-50-83 10:11:18 Test Item Value Reference Range Interpretation Comments Platelet (test code = Platelet) 178 133-450 [facility] PasoNkrdmdlVNAVAOQBAQ4558-18-63 10:11:18 Test Item Value Reference Range Interpretation Comments RDW (test code = RDW) 13.2 11.5-14.5 [facility] PasoZnbypsrZEQUTPNIRX4174-81-88 10:11:18 Test Item Value Reference Range Interpretation Comments MCH (test code = MCH) 30.4 pg 27.0-31.0 [facility] PasoJbfkmtbCKRYTGWPXV5024-81-76 10:11:18 Test Item Value Reference Range Interpretation Comments MCHC (test code = MCHC) 33.7 32.0-36.0 [facility] PasoXiwogkcMCCFRHXKTN4748-79-93 10:11:18 Test Item Value Reference Range Interpretation Comments Hgb (test code = Hgb) 12.2 12.0-16.0 [facility] PasoTzhosbzGTFMYLKOSU0241-22-41 10:11:18 Test Item Value Reference Range Interpretation Comments MCV (test code = MCV) 90.1 80.0-98.0 [facility] PasoYuexqxnHUQMRYKTLH7112-53-68 10:11:18 Test Item Value Reference Range Interpretation Comments Hct (test code = Hct) 36.2 36.0-48.0 [facility] PasoXgvcpibBPBWRQQGKN3796-62-19 10:11:18 Test Item Value Reference Range Interpretation Comments RBC (test code = RBC) 4.02 4.20-5.40 [facility] PasoRhsvjtuMZVRJMXWPG3099-74-52 10:11:18 Test Item Value Reference Range Interpretation Comments WBC (test code = WBC) 10.1 3.7-10.4 [facility] PasoOnbbghmJESUOBOWHP0414-36-22 10:11:18 Test Item Value Reference Range Interpretation Comments PTT (test code = PTT) 35.5 s 22.9-35.8 [facility] PasoZobwsndINJQCAIQYY5250-67-73 10:11:18 Test Item Value Reference Range Interpretation Comments Eosinophils # (test code 0.2 See_Comment [A utomated message] The = Eosinophils #) system whic h generated this result tra nsmitted reference range : <=0.5. The reference r lily was not used to int erpret this result as normal/abnormal . [facility] PasoBunrsdlFMRIUPUZDP6583-13-64 10:11:18 Test Item Value Reference Range Interpretation Comments Monocytes (test code = Monocytes) 7.9 2.0-12.0 [facility] PasoSqoswysNEYTJGJEEL0702-55-48 10:11:18 Test Item Value Reference Range Interpretation Comments Eosinophils (test code = 2.5 See_Comment [A utomated message] The Eosinophils) system which ge nerated this result tra nsmitted reference range : <=4.0. The reference r lily was not used to int erpret this result as normal/abnormal . [facility] PasoYrkkmarNGSUVLAUOR0473-43-52 10:11:18 Test Item Value Reference Range Interpretation Comments Basophils # (test code 0.1 See_Comment [Aut omated message] The = Basophils #) system which generated this result tra nsmitted reference range : <=0.2. The reference r lily was not used to int erpret this result as normal/abnormal . [facility] PasoFzyfnmhBMCPZKAHAQ0039-45-05 10:11:18 Test Item Value Reference Range Interpretation Comments Segs (test code = Segs) 65.1 45.0-75.0 [facility] PasoQmjlkrlVCFNPOKPSG3026-35-14 10:11:18 Test Item Value Reference Range Interpretation Comments Lymphocytes (test code = Lymphocytes) 23.7 20.0-40.0 [facility] PasoMknguwzQFVEHGOOUX2845-69-81 10:11:18 Test Item Value Reference Range Interpretation Comments Lymphocytes # (test code = Lymphocytes 2.4 1.0-5.5 #) [facility] PasoSgtluihBLVKFNIXFG8328-82-89 10:11:18 Test Item Value Reference Range Interpretation Comments Monocytes # (test code 0.8 See_Comment [Aut omated message] The = Monocytes #) system which generated this result tra nsmitted reference range : <=0.8. The reference r lily was not used to int erpret this result as normal/abnormal . [facility] PasoVvcybagIESOQQKGMI1946-86-59 10:11:18 Test Item Value Reference Range Interpretation Comments Basophils (test code = 0.8 See_Comment [Aut omated message] The Basophils) system which ge nerated this result tra nsmitted reference range : <=1.0. The reference r lily was not used to int erpret this result as normal/abnormal . [facility] PasoXvwatkhRHGNLSBQTD6591-10-21 10:11:18 Test Item Value Reference Range Interpretation Comments Segs-Bands # (test code = Segs-Bands #) 6.6 1.5-8.1 [facility]2016-07-16 10:11:18 Test Item Value Reference Range Interpretation Comments Lactic Acid WB (test code = Lactic Acid 1.3 0.5-2.2 WB) [facility] HospitalInkvdhhCFESOHMBRZOH3241-00-45 10:11:18 Test Item Value Reference Range Interpretation Comments AGAP (test code = AGAP) 11.5 10.0-20.0 [facility] HospitalSyszemoSNMQVVAEWJTF1068-67-72 10:11:18 Test Item Value Reference Range Interpretation Comments eGFR (test code = eGFR) 87 [facility] HospitalRggcwsvSLEHBDYYAJYS2891-48-79 10:11:18 Test Item Value Reference Range Interpretation Comments Glucose Lvl (test code = Glucose Lvl) 125 70-99 [facility] HospitalCvjfegrOMBKFMLOUQDX5128-86-16 10:11:18 Test Item Value Reference Range Interpretation Comments BUN (test code = BUN) 16 7-22 [facility] HospitalFnthyhkQRIDMWJSSXBE8088-91-22 10:11:18 Test Item Value Reference Range Interpretation Comments Creatinine Lvl (test code = Creatinine 0.74 0.50-1.40 Lvl) [facility] HospitalQpniiwzYUVGMGZOQZCE3398-56-47 10:11:18 Test Item Value Reference Range Interpretation Comments Potassium Lvl (test code = Potassium 3.5 3.5-5.1 Lvl) [facility] HospitalJnpkyuiILCBFEGSBYDA8031-58-27 10:11:18 Test Item Value Reference Range Interpretation Comments Chloride Lvl (test code = Chloride Lvl) 104 95-109 [facility] HospitalGmsmokqVWZUXFFVLWSV6274-89-54 10:11:18 Test Item Value Reference Range Interpretation Comments Sodium Lvl (test code = Sodium Lvl) 141 135-145 [facility] HospitalPrvijfpIUXNIZHWNPCJ4723-12-67 10:11:18 Test Item Value Reference Range Interpretation Comments CO2 (test code = CO2) 29 24-32 [facility] HospitalCwsqouwWNWDNDYDHGEN7691-06-69 10:11:18 Test Item Value Reference Range Interpretation Comments Calcium Lvl (test code = Calcium Lvl) 9.4 8.5-10.5 [facility] PasoQrjawgaDOWNYZEXWY8782-20-20 10:11:18 Test Item Value Reference Range Interpretation Comments Estimated % Lysis Rapid 1.2 See_Comment [Au tomated message] The (test code = Estimated syste m which generated % Lysis Rapid) this result t ransmitted reference range : <=7.5. The reference r lily was not used to int erpret this result as normal/abnormal . [facility] PasoLeerhneBTKQTVMTKV7361-20-27 10:11:18 Test Item Value Reference Range Interpretation Comments K-time Rapid (test code = K-time 0.8 min 0.6-2.3 Rapid) [facility] PasoUwpigsjSYEKUFVQOT0170-08-92 10:11:18 Test Item Value Reference Range Interpretation Comments Split Point Rapid (test code = Split 0.4 min Point Rapid) [facility] PasoAvgmccjYRGJYWMNMW2651-99-53 10:11:18 Test Item Value Reference Range Interpretation Comments ACT (TEG) Rapid (test code = ACT (TEG) 97 s 86-118 Rapid) [facility] PasoFvkaeaoZSXGPKQXYJ6475-58-18 10:11:18 Test Item Value Reference Range Interpretation Comments R-time Rapid (test code = R-time 0.5 min 0.4-0.7 Rapid) [facility] PasoQgwhgdgUUMVTKQQXZ3595-60-97 10:11:18 Test Item Value Reference Range Interpretation Comments G-value Rapid (test code = G-value 12.5 5.0-11.6 Rapid) [facility] PasoRsgkpewEUWUAAQRDI2372-42-07 10:11:18 Test Item Value Reference Range Interpretation Comments Max Amplitude Rapid (test code = Max 72 mm 52-71 Amplitude Rapid) [facility] PasoZsxqxcjHQXPBQAWMK4745-83-66 10:11:18 Test Item Value Reference Range Interpretation Comments Angle Rapid (test code = Angle 79 degrees 64-80 Rapid) [facility] PasoNdqlpofECMSOOLYRN9887-03-44 10:11:18 Test Item Value Reference Range Interpretation Comments INR (test code = INR) 0.98 0.85-1.17 [facility] PasoVsqfegxUQJHUXAIES7796-57-75 10:11:18 Test Item Value Reference Range Interpretation Comments PT (test code = PT) 13.3 s 12.0-14.7 [facility] PasoQivqnxcQXLJSNHYUG9093-33-47 10:11:18 Test Item Value Reference Range Interpretation Comments MPV (test code = MPV) 10.4 7.4-10.4 [facility] PasoHqoaxphFJPDIFSRTN7187-31-74 10:11:18 Test Item Value Reference Range Interpretation Comments Platelet (test code = Platelet) 178 133-450 [facility] PasoTeqxwplLXMQGOYBFR4491-67-34 10:11:18 Test Item Value Reference Range Interpretation Comments RDW (test code = RDW) 13.2 11.5-14.5 [facility] PasoQvdzexhMBXGRRTSKV2240-32-06 10:11:18 Test Item Value Reference Range Interpretation Comments MCH (test code = MCH) 30.4 pg 27.0-31.0 [facility] PasoPujeywaCIJIRWTXXA7282-20-36 10:11:18 Test Item Value Reference Range Interpretation Comments MCHC (test code = MCHC) 33.7 32.0-36.0 [facility] PasoDnazuzkQURILSHSIE2252-91-18 10:11:18 Test Item Value Reference Range Interpretation Comments Hgb (test code = Hgb) 12.2 12.0-16.0 [facility] PasoFtrqvmnKNAFNMDTTU5934-30-58 10:11:18 Test Item Value Reference Range Interpretation Comments MCV (test code = MCV) 90.1 80.0-98.0 [facility] PasoJkrucyyVKXRXJBCVV6160-21-79 10:11:18 Test Item Value Reference Range Interpretation Comments Hct (test code = Hct) 36.2 36.0-48.0 [facility] PasoVcvlrhjYQTOCDMCYQ0981-26-56 10:11:18 Test Item Value Reference Range Interpretation Comments RBC (test code = RBC) 4.02 4.20-5.40 [facility] PasoQbvngvmWPEIMGBRPT6208-65-35 10:11:18 Test Item Value Reference Range Interpretation Comments WBC (test code = WBC) 10.1 3.7-10.4 [facility] PasoTqgedmlEKQZACORGU8462-76-31 10:11:18 Test Item Value Reference Range Interpretation Comments PTT (test code = PTT) 35.5 s 22.9-35.8 [facility] PasoBfdngyjEENBYDORZF8460-42-21 10:11:18 Test Item Value Reference Range Interpretation Comments Eosinophils # (test code 0.2 See_Comment [A utomated message] The = Eosinophils #) system whic h generated this result tra nsmitted reference range : <=0.5. The reference r lily was not used to int erpret this result as normal/abnormal . [facility] PasoOtwaadrDHKBVMAYEV9422-06-78 10:11:18 Test Item Value Reference Range Interpretation Comments Monocytes (test code = Monocytes) 7.9 2.0-12.0 [facility] PasoDsllybhVSMZZZYHZA4230-79-34 10:11:18 Test Item Value Reference Range Interpretation Comments Eosinophils (test code = 2.5 See_Comment [A utomated message] The Eosinophils) system which ge nerated this result tra nsmitted reference range : <=4.0. The reference r lily was not used to int erpret this result as normal/abnormal . [facility] PasoVkadebeLRHEPPDWYQ9102-30-95 10:11:18 Test Item Value Reference Range Interpretation Comments Basophils # (test code 0.1 See_Comment [Aut omated message] The = Basophils #) system which generated this result tra nsmitted reference range : <=0.2. The reference r lily was not used to int erpret this result as normal/abnormal . [facility] PasoCgkomokAUMDCEVKQO1773-18-02 10:11:18 Test Item Value Reference Range Interpretation Comments Segs (test code = Segs) 65.1 45.0-75.0 [facility] PasoMxdkkfkPPSRLOCVJD8498-85-26 10:11:18 Test Item Value Reference Range Interpretation Comments Lymphocytes (test code = Lymphocytes) 23.7 20.0-40.0 [facility] PasoUytvomzJEHRYVFJZH0144-57-09 10:11:18 Test Item Value Reference Range Interpretation Comments Lymphocytes # (test code = Lymphocytes 2.4 1.0-5.5 #) [facility] PasoShkwgxtNKRUFUNXWG1469-85-36 10:11:18 Test Item Value Reference Range Interpretation Comments Monocytes # (test code 0.8 See_Comment [Aut omated message] The = Monocytes #) system which generated this result tra nsmitted reference range : <=0.8. The reference r lily was not used to int erpret this result as normal/abnormal . [facility] PasoGzkjyetAOKKPFARXC9934-21-22 10:11:18 Test Item Value Reference Range Interpretation Comments Basophils (test code = 0.8 See_Comment [Aut omated message] The Basophils) system which ge nerated this result tra nsmitted reference range : <=1.0. The reference r lily was not used to int erpret this result as normal/abnormal . [facility] PasoGdgoozrVKWJKYOZWH1094-67-18 10:11:18 Test Item Value Reference Range Interpretation Comments Segs-Bands # (test code = Segs-Bands #) 6.6 1.5-8.1 [facility]2016-07-16 10:11:18 Test Item Value Reference Range Interpretation Comments Lactic Acid WB (test code = Lactic Acid 1.3 0.5-2.2 WB) [facility] HospitalYouamxgZKZSZBSGJRCW2970-06-65 10:11:18 Test Item Value Reference Range Interpretation Comments AGAP (test code = AGAP) 11.5 10.0-20.0 [facility] HospitalUzyiiuxHOTMFVMLVMZV1847-79-88 10:11:18 Test Item Value Reference Range Interpretation Comments eGFR (test code = eGFR) 87 [facility] HospitalDzxvimzHGSACYHGROXF9507-35-94 10:11:18 Test Item Value Reference Range Interpretation Comments Glucose Lvl (test code = Glucose Lvl) 125 70-99 [facility] HospitalHkdtrbeWCDZKQUZJTAX3053-54-69 10:11:18 Test Item Value Reference Range Interpretation Comments BUN (test code = BUN) 16 7-22 [facility] HospitalHcenlrmUFAFEPSVQTDM8634-17-96 10:11:18 Test Item Value Reference Range Interpretation Comments Creatinine Lvl (test code = Creatinine 0.74 0.50-1.40 Lvl) [facility] HospitalPdcnasmBDCWNJQCMHYM8787-50-15 10:11:18 Test Item Value Reference Range Interpretation Comments Potassium Lvl (test code = Potassium 3.5 3.5-5.1 Lvl) [facility] HospitalCgpkffcRHWGRUSUVYXC4643-70-43 10:11:18 Test Item Value Reference Range Interpretation Comments Chloride Lvl (test code = Chloride Lvl) 104 95-109 [facility] HospitalZgguhorSFNCQPMNZGHM0860-05-07 10:11:18 Test Item Value Reference Range Interpretation Comments Sodium Lvl (test code = Sodium Lvl) 141 135-145 [facility] HospitalZprzcuxMIMSLEJERFIA7451-01-70 10:11:18 Test Item Value Reference Range Interpretation Comments CO2 (test code = CO2) 29 24-32 [facility]WtghxvaUHVXSTDRSLWB6397-49-08 10:11:18 Test Item Value Reference Range Interpretation Comments Calcium Lvl (test code = Calcium Lvl) 9.4 8.5-10.5 [facility] PasoAuxfnscZINZPLAUSZ4389-41-49 10:11:18 Test Item Value Reference Range Interpretation Comments Estimated % Lysis Rapid 1.2 See_Comment [Au tomated message] The (test code = Estimated syste m which generated % Lysis Rapid) this result t ransmitted reference range : <=7.5. The reference r lily was not used to int erpret this result as normal/abnormal . [facility] PasoTekynepAZSKMOXLJX6379-85-11 10:11:18 Test Item Value Reference Range Interpretation Comments K-time Rapid (test code = K-time 0.8 min 0.6-2.3 Rapid) [facility] PasoXrgqnvvNRJPDGRXSS2866-70-11 10:11:18 Test Item Value Reference Range Interpretation Comments Split Point Rapid (test code = Split 0.4 min Point Rapid) [facility] PasoQhxpghtLLTNOZOKLT0668-06-41 10:11:18 Test Item Value Reference Range Interpretation Comments ACT (TEG) Rapid (test code = ACT (TEG) 97 s 86-118 Rapid) [facility] PasoSnvyjowPQXIKAAXOY7371-62-59 10:11:18 Test Item Value Reference Range Interpretation Comments R-time Rapid (test code = R-time 0.5 min 0.4-0.7 Rapid) [facility] PasoEndjsaiSDKRBSHVKX3670-37-58 10:11:18 Test Item Value Reference Range Interpretation Comments G-value Rapid (test code = G-value 12.5 5.0-11.6 Rapid) [facility] PasoPbaeewgAARPGDHKYT2068-18-60 10:11:18 Test Item Value Reference Range Interpretation Comments Max Amplitude Rapid (test code = Max 72 mm 52-71 Amplitude Rapid) [facility] PasoHqfnwzgHAPWISJUOR5921-42-68 10:11:18 Test Item Value Reference Range Interpretation Comments Angle Rapid (test code = Angle 79 degrees 64-80 Rapid) [facility] PasoGendtghFOIYHBUPEB4569-21-37 10:11:18 Test Item Value Reference Range Interpretation Comments INR (test code = INR) 0.98 0.85-1.17 [facility] PasoWdtthjfMHNPYSCBIQ8317-92-00 10:11:18 Test Item Value Reference Range Interpretation Comments PT (test code = PT) 13.3 s 12.0-14.7 [facility] PasoGtazbfgNHMUIEQHWX7226-27-57 10:11:18 Test Item Value Reference Range Interpretation Comments MPV (test code = MPV) 10.4 7.4-10.4 [facility] PasoEvmmifqECUFNTVFPC5372-13-85 10:11:18 Test Item Value Reference Range Interpretation Comments Platelet (test code = Platelet) 178 133-450 [facility] PasoGwvscfzDZNQDQGHAI6816-07-96 10:11:18 Test Item Value Reference Range Interpretation Comments RDW (test code = RDW) 13.2 11.5-14.5 [facility] PasoGviqewdLZLLEWUNZD4771-38-86 10:11:18 Test Item Value Reference Range Interpretation Comments MCH (test code = MCH) 30.4 pg 27.0-31.0 [facility] PasoDphjxdsVNIXEDNWAL5416-94-37 10:11:18 Test Item Value Reference Range Interpretation Comments MCHC (test code = MCHC) 33.7 32.0-36.0 [facility] PasoEhufbrhLONNZUCOAJ2652-14-80 10:11:18 Test Item Value Reference Range Interpretation Comments Hgb (test code = Hgb) 12.2 12.0-16.0 [facility] PasoLzfgqraADLFEUZOHW3743-25-26 10:11:18 Test Item Value Reference Range Interpretation Comments MCV (test code = MCV) 90.1 80.0-98.0 [facility] PasoVddethuDBLVPPWEAK2822-86-52 10:11:18 Test Item Value Reference Range Interpretation Comments Hct (test code = Hct) 36.2 36.0-48.0 [facility] PasoOgekvjqEDDLPOTYIQ1939-45-27 10:11:18 Test Item Value Reference Range Interpretation Comments RBC (test code = RBC) 4.02 4.20-5.40 [facility] PasoUbimucnDYQIMVKCKW0010-01-11 10:11:18 Test Item Value Reference Range Interpretation Comments WBC (test code = WBC) 10.1 3.7-10.4 [facility] PasoCkabjgzGRDTTWBSRM1470-94-20 10:11:18 Test Item Value Reference Range Interpretation Comments PTT (test code = PTT) 35.5 s 22.9-35.8 [facility] PasoQphbjlkEPNQAZJXCQ8513-02-36 10:11:18 Test Item Value Reference Range Interpretation Comments Eosinophils # (test code 0.2 See_Comment [A utomated message] The = Eosinophils #) system whic h generated this result tra nsmitted reference range : <=0.5. The reference r lily was not used to int erpret this result as normal/abnormal . [facility] PasoPndcxnrGCMSXLKSDE9766-06-14 10:11:18 Test Item Value Reference Range Interpretation Comments Monocytes (test code = Monocytes) 7.9 2.0-12.0 [facility] PasoAyzfxnxDKRBBHYSDQ0205-41-03 10:11:18 Test Item Value Reference Range Interpretation Comments Eosinophils (test code = 2.5 See_Comment [A utomated message] The Eosinophils) system which ge nerated this result tra nsmitted reference range : <=4.0. The reference r lily was not used to int erpret this result as normal/abnormal . [facility] PasoMrgqxeyQATGBGNLYJ0454-01-45 10:11:18 Test Item Value Reference Range Interpretation Comments Basophils # (test code 0.1 See_Comment [Aut omated message] The = Basophils #) system which generated this result tra nsmitted reference range : <=0.2. The reference r lily was not used to int erpret this result as normal/abnormal . [facility] PasoBordbocMXWBNIOCTW4703-02-30 10:11:18 Test Item Value Reference Range Interpretation Comments Segs (test code = Segs) 65.1 45.0-75.0 [facility] PasoWpzacusWTXMQBAFXD9881-72-09 10:11:18 Test Item Value Reference Range Interpretation Comments Lymphocytes (test code = Lymphocytes) 23.7 20.0-40.0 [facility] PasoCsbltxzOEQGDCCQFA9118-94-47 10:11:18 Test Item Value Reference Range Interpretation Comments Lymphocytes # (test code = Lymphocytes 2.4 1.0-5.5 #) [facility] PasoNasjskyHSCKSDDZQN6204-81-26 10:11:18 Test Item Value Reference Range Interpretation Comments Monocytes # (test code 0.8 See_Comment [Aut omated message] The = Monocytes #) system which generated this result tra nsmitted reference range : <=0.8. The reference r lily was not used to int erpret this result as normal/abnormal . [facility] PasoDilcyhoBKNOWSXXDE9044-42-11 10:11:18 Test Item Value Reference Range Interpretation Comments Basophils (test code = 0.8 See_Comment [Aut omated message] The Basophils) system which ge nerated this result tra nsmitted reference range : <=1.0. The reference r lily was not used to int erpret this result as normal/abnormal . [facility] PasoIrrrpxdYYBCZZEMAV8102-42-06 10:11:18 Test Item Value Reference Range Interpretation Comments Segs-Bands # (test code = Segs-Bands #) 6.6 1.5-8.1 [facility]2016-07-16 10:11:18 Test Item Value Reference Range Interpretation Comments Lactic Acid WB (test code = Lactic Acid 1.3 0.5-2.2 WB) [facility] HospitalHdoantiYNVINHLVXGFF5338-57-44 10:11:18 Test Item Value Reference Range Interpretation Comments AGAP (test code = AGAP) 11.5 10.0-20.0 [facility] HospitalEvtsfjhXVKYGBEKDBST4414-97-90 10:11:18 Test Item Value Reference Range Interpretation Comments eGFR (test code = eGFR) 87 [facility] HospitalJzwotgpKABSNRAIHKTQ8867-20-77 10:11:18 Test Item Value Reference Range Interpretation Comments Glucose Lvl (test code = Glucose Lvl) 125 70-99 [facility] HospitalYoyriqrQUGUZCJIFWFT7940-68-36 10:11:18 Test Item Value Reference Range Interpretation Comments BUN (test code = BUN) 16 7-22 [facility] HospitalGromlfnHKQABQCSBIOA0966-43-95 10:11:18 Test Item Value Reference Range Interpretation Comments Creatinine Lvl (test code = Creatinine 0.74 0.50-1.40 Lvl) [facility] HospitalUcweyqqREMTATVFGCIX3583-40-88 10:11:18 Test Item Value Reference Range Interpretation Comments Potassium Lvl (test code = Potassium 3.5 3.5-5.1 Lvl) [facility] HospitalIqchhhvPQGOERRYORXY1569-64-47 10:11:18 Test Item Value Reference Range Interpretation Comments Chloride Lvl (test code = Chloride Lvl) 104 95-109 [facility] HospitalIuvevvnKJTPJCRMFHQV1375-70-97 10:11:18 Test Item Value Reference Range Interpretation Comments Sodium Lvl (test code = Sodium Lvl) 141 135-145 [facility] HospitalYhtmjlcAAJGDXOQTIAG6309-23-62 10:11:18 Test Item Value Reference Range Interpretation Comments CO2 (test code = CO2) 29 24-32 [facility]2016-07-16 10:11:18 Test Item Value Reference Range Interpretation Comments Lactic Acid WB (test code = Lactic Acid 1.3 0.5-2.2 WB) [facility] HospitalNwrfdlrZUIRRZPYUCIB8499-65-55 10:11:18 Test Item Value Reference Range Interpretation Comments AGAP (test code = AGAP) 11.5 10.0-20.0 [facility] HospitalQyslxusLTZHLKLPVSTV6158-75-25 10:11:18 Test Item Value Reference Range Interpretation Comments eGFR (test code = eGFR) 87 [facility] HospitalLjfmdnwAPGXMHNHUEIN4806-47-36 10:11:18 Test Item Value Reference Range Interpretation Comments Glucose Lvl (test code = Glucose Lvl) 125 70-99 [facility] HospitalVutsjkdUSFNZZOFKHDA2121-13-81 10:11:18 Test Item Value Reference Range Interpretation Comments BUN (test code = BUN) 16 7-22 [facility] HospitalNpdewccGMBSSTEICVXK7068-16-63 10:11:18 Test Item Value Reference Range Interpretation Comments Creatinine Lvl (test code = Creatinine 0.74 0.50-1.40 Lvl) [facility] HospitalXcallccKDQUISLKUIEG1199-75-73 10:11:18 Test Item Value Reference Range Interpretation Comments Potassium Lvl (test code = Potassium 3.5 3.5-5.1 Lvl) [facility] HospitalYxaynitDKQMTDJWCBEH8465-04-03 10:11:18 Test Item Value Reference Range Interpretation Comments Chloride Lvl (test code = Chloride Lvl) 104 95-109 [facility] HospitalQrtwyiuQKUCZYCVNLPN4550-69-96 10:11:18 Test Item Value Reference Range Interpretation Comments Sodium Lvl (test code = Sodium Lvl) 141 135-145 [facility] HospitalDnccwugXVODNFYXSXDF6920-37-84 10:11:18 Test Item Value Reference Range Interpretation Comments Calcium Lvl (test code = Calcium Lvl) 9.4 8.5-10.5 [facility] HospitalNqvliotYYROGNZQMXVN8721-23-27 10:11:18 Test Item Value Reference Range Interpretation Comments CO2 (test code = CO2) 29 24-32 [facility] HospitalUkmtlpgYQJUAUTNITIY1792-66-53 10:11:18 Test Item Value Reference Range Interpretation Comments Calcium Lvl (test code = Calcium Lvl) 9.4 8.5-10.5 [facility]HfsqzpqHSWPQGZFTX5696-84-35 10:11:18 Test Item Value Reference Range Interpretation Comments Estimated % Lysis Rapid 1.2 See_Comment [Au tomated message] The (test code = Estimated syste m which generated % Lysis Rapid) this result t ransmitted reference range : <=7.5. The reference r lily was not used to int erpret this result as normal/abnormal . [facility] PasoJxwdjuvMHLYTWLEVF7101-66-86 10:11:18 Test Item Value Reference Range Interpretation Comments K-time Rapid (test code = K-time 0.8 min 0.6-2.3 Rapid) [facility] PasoEnbtlrxPNWIMOSZEO9016-52-94 10:11:18 Test Item Value Reference Range Interpretation Comments Split Point Rapid (test code = Split 0.4 min Point Rapid) [facility] PasoSzcabwkPGXMNADNYS9851-03-88 10:11:18 Test Item Value Reference Range Interpretation Comments ACT (TEG) Rapid (test code = ACT (TEG) 97 s 86-118 Rapid) [facility] PasoSndulowKVLEPGSRTN1735-24-40 10:11:18 Test Item Value Reference Range Interpretation Comments R-time Rapid (test code = R-time 0.5 min 0.4-0.7 Rapid) [facility] PasoMzoqzodUDCZVOOOGG9217-84-88 10:11:18 Test Item Value Reference Range Interpretation Comments G-value Rapid (test code = G-value 12.5 5.0-11.6 Rapid) [facility] PasoKrggdofPKKYGFATAD8761-19-13 10:11:18 Test Item Value Reference Range Interpretation Comments Max Amplitude Rapid (test code = Max 72 mm 52-71 Amplitude Rapid) [facility] PasoWqkjorfIVMZUTUJMM5508-75-11 10:11:18 Test Item Value Reference Range Interpretation Comments Angle Rapid (test code = Angle 79 degrees 64-80 Rapid) [facility] PasoNetjvzsDOEUJSFSHR8871-10-63 10:11:18 Test Item Value Reference Range Interpretation Comments Estimated % Lysis Rapid 1.2 See_Comment [Au tomated message] The (test code = Estimated syste m which generated % Lysis Rapid) this result t ransmitted reference range : <=7.5. The reference r lily was not used to int erpret this result as normal/abnormal . [facility] PasoPytczrmVEBNYWKNEW2267-88-69 10:11:18 Test Item Value Reference Range Interpretation Comments INR (test code = INR) 0.98 0.85-1.17 [facility] PasoVjsytijXEIRCMWVXA6683-19-51 10:11:18 Test Item Value Reference Range Interpretation Comments PT (test code = PT) 13.3 s 12.0-14.7 [facility] PasoXkeltcvOWIXJUTATY4453-32-28 10:11:18 Test Item Value Reference Range Interpretation Comments MPV (test code = MPV) 10.4 7.4-10.4 [facility] PasoFmdbqjfXSFDPDCKIT8587-39-01 10:11:18 Test Item Value Reference Range Interpretation Comments Platelet (test code = Platelet) 178 133-450 [facility] PasoDyxorqcVZVBHMKWCS3908-60-79 10:11:18 Test Item Value Reference Range Interpretation Comments RDW (test code = RDW) 13.2 11.5-14.5 [facility] PasoCpwlhrpMWBWAQGIBW0365-75-01 10:11:18 Test Item Value Reference Range Interpretation Comments MCH (test code = MCH) 30.4 pg 27.0-31.0 [facility] PasoJewurohRBJPJDUSEX9817-86-57 10:11:18 Test Item Value Reference Range Interpretation Comments MCHC (test code = MCHC) 33.7 32.0-36.0 [facility] PasoMjbqoqpZOYIJODXGV1039-07-55 10:11:18 Test Item Value Reference Range Interpretation Comments Hgb (test code = Hgb) 12.2 12.0-16.0 [facility] PasoHzcornqHZNKPJBDJF4788-80-31 10:11:18 Test Item Value Reference Range Interpretation Comments MCV (test code = MCV) 90.1 80.0-98.0 [facility] PasoEjpfmkqRRBLDJWBEI5003-43-34 10:11:18 Test Item Value Reference Range Interpretation Comments Hct (test code = Hct) 36.2 36.0-48.0 [facility] PasoNcazqnwANCTNUVPWJ1527-52-36 10:11:18 Test Item Value Reference Range Interpretation Comments K-time Rapid (test code = K-time 0.8 min 0.6-2.3 Rapid) [facility] PasoWjhcrtrJRBYDSJAWZ0510-16-97 10:11:18 Test Item Value Reference Range Interpretation Comments RBC (test code = RBC) 4.02 4.20-5.40 [facility] PasoPsisgrpZCOADSNCVJ0270-36-27 10:11:18 Test Item Value Reference Range Interpretation Comments WBC (test code = WBC) 10.1 3.7-10.4 [facility] PasoFfjqmpsVVFSOSNAEU0433-88-62 10:11:18 Test Item Value Reference Range Interpretation Comments PTT (test code = PTT) 35.5 s 22.9-35.8 [facility] PasoAyixzupDHESVLVJIH5373-74-76 10:11:18 Test Item Value Reference Range Interpretation Comments Eosinophils # (test code 0.2 See_Comment [A utomated message] The = Eosinophils #) system whic h generated this result tra nsmitted reference range : <=0.5. The reference r lily was not used to int erpret this result as normal/abnormal . [facility] PasoUashsskJPRAHBYKHO3287-93-41 10:11:18 Test Item Value Reference Range Interpretation Comments Monocytes (test code = Monocytes) 7.9 2.0-12.0 [facility] PasoFutcrbkLGQMHNYMYH5501-92-32 10:11:18 Test Item Value Reference Range Interpretation Comments Eosinophils (test code = 2.5 See_Comment [A utomated message] The Eosinophils) system which ge nerated this result tra nsmitted reference range : <=4.0. The reference r lily was not used to int erpret this result as normal/abnormal . [facility] PasoHgbenseSJJKKEIBSS2509-97-31 10:11:18 Test Item Value Reference Range Interpretation Comments Basophils # (test code 0.1 See_Comment [Aut omated message] The = Basophils #) system which generated this result tra nsmitted reference range : <=0.2. The reference r lily was not used to int erpret this result as normal/abnormal . [facility] PasoSorbyusNLKBDZBROO8102-21-42 10:11:18 Test Item Value Reference Range Interpretation Comments Segs (test code = Segs) 65.1 45.0-75.0 [facility] PasoZmeazhvTHFSAMIFVO1368-25-76 10:11:18 Test Item Value Reference Range Interpretation Comments Lymphocytes (test code = Lymphocytes) 23.7 20.0-40.0 [facility] PasoGrnmlbiSSBNHCLNIX0107-78-39 10:11:18 Test Item Value Reference Range Interpretation Comments Lymphocytes # (test code = Lymphocytes 2.4 1.0-5.5 #) [facility] PasoMmecuwwMURQZDWBBX5182-25-65 10:11:18 Test Item Value Reference Range Interpretation Comments Split Point Rapid (test code = Split 0.4 min Point Rapid) [facility] PasoRvkgqpgUAWYTGCIHY4622-79-74 10:11:18 Test Item Value Reference Range Interpretation Comments Monocytes # (test code 0.8 See_Comment [Aut omated message] The = Monocytes #) system which generated this result tra nsmitted reference range : <=0.8. The reference r lily was not used to int erpret this result as normal/abnormal . [facility] PasoMoymlxmTEQZFSBXZB3090-64-93 10:11:18 Test Item Value Reference Range Interpretation Comments Basophils (test code = 0.8 See_Comment [Aut omated message] The Basophils) system which ge nerated this result tra nsmitted reference range : <=1.0. The reference r lily was not used to int erpret this result as normal/abnormal . [facility] PasoMjzhpmpMFTJFGYIVP0197-07-05 10:11:18 Test Item Value Reference Range Interpretation Comments Segs-Bands # (test code = Segs-Bands #) 6.6 1.5-8.1 [facility] PasoDryykwwQCLWREEXAI1334-44-40 10:11:18 Test Item Value Reference Range Interpretation Comments ACT (TEG) Rapid (test code = ACT (TEG) 97 s 86-118 Rapid) [facility] PasoTbpvaszHXUHQUXMSI6863-90-62 10:11:18 Test Item Value Reference Range Interpretation Comments R-time Rapid (test code = R-time 0.5 min 0.4-0.7 Rapid) [facility] PasoUsbgnzdTXVYPMSENY0840-53-69 10:11:18 Test Item Value Reference Range Interpretation Comments G-value Rapid (test code = G-value 12.5 5.0-11.6 Rapid) [facility] PasoJvryfaxRFOJJTRYAU4731-31-07 10:11:18 Test Item Value Reference Range Interpretation Comments Max Amplitude Rapid (test code = Max 72 mm 52-71 Amplitude Rapid) [facility] PasoXesyympWJUAXQWVEW2124-66-61 10:11:18 Test Item Value Reference Range Interpretation Comments Angle Rapid (test code = Angle 79 degrees 64-80 Rapid) [facility] PasoObwmszlOJNMIFNJCG5708-77-47 10:11:18 Test Item Value Reference Range Interpretation Comments INR (test code = INR) 0.98 0.85-1.17 [facility] PasoPspiwoqGTZFKEFWSF4375-32-23 10:11:18 Test Item Value Reference Range Interpretation Comments PT (test code = PT) 13.3 s 12.0-14.7 [facility] PasoOrwqvauOOGGJZXVKK8132-74-02 10:11:18 Test Item Value Reference Range Interpretation Comments MPV (test code = MPV) 10.4 7.4-10.4 [facility] PasoAtgahgrCHEZAIYMIU3868-50-00 10:11:18 Test Item Value Reference Range Interpretation Comments Platelet (test code = Platelet) 178 133-450 [facility] PasoXnbhlykAERVSLQHAD6011-95-96 10:11:18 Test Item Value Reference Range Interpretation Comments RDW (test code = RDW) 13.2 11.5-14.5 [facility] PasoYhhxbgzODJASWSVZL8125-84-47 10:11:18 Test Item Value Reference Range Interpretation Comments MCH (test code = MCH) 30.4 pg 27.0-31.0 [facility] PasoNbjrkyrWOBRUDEJVB1773-25-93 10:11:18 Test Item Value Reference Range Interpretation Comments MCHC (test code = MCHC) 33.7 32.0-36.0 [facility] PasoMnewklxZMGMTGNKON2420-74-41 10:11:18 Test Item Value Reference Range Interpretation Comments Hgb (test code = Hgb) 12.2 12.0-16.0 [facility] PasoVkvwvwrFRJVKTZZAD0228-55-37 10:11:18 Test Item Value Reference Range Interpretation Comments MCV (test code = MCV) 90.1 80.0-98.0 [facility] PasoTpgyqpePPBWFZUAYB4978-91-94 10:11:18 Test Item Value Reference Range Interpretation Comments Hct (test code = Hct) 36.2 36.0-48.0 [facility] PasoBiiykieUXTFUPZMFC7799-94-01 10:11:18 Test Item Value Reference Range Interpretation Comments RBC (test code = RBC) 4.02 4.20-5.40 [facility] PasoUlxnqnxDVGFUZMZDZ3269-45-64 10:11:18 Test Item Value Reference Range Interpretation Comments WBC (test code = WBC) 10.1 3.7-10.4 [facility] PasoBzwetauGHIXVHIHXM4084-04-95 10:11:18 Test Item Value Reference Range Interpretation Comments PTT (test code = PTT) 35.5 s 22.9-35.8 [facility] PasoWqjtqtkYQELZBURRJ3158-83-46 10:11:18 Test Item Value Reference Range Interpretation Comments Eosinophils # (test code 0.2 See_Comment [A utomated message] The = Eosinophils #) system whic h generated this result tra nsmitted reference range : <=0.5. The reference r lily was not used to int erpret this result as normal/abnormal . [facility] PasoRnfyhkuDWNASSLRFJ3923-24-57 10:11:18 Test Item Value Reference Range Interpretation Comments Monocytes (test code = Monocytes) 7.9 2.0-12.0 [facility] PasoCouybhkDRINBSLCJY7183-91-11 10:11:18 Test Item Value Reference Range Interpretation Comments Eosinophils (test code = 2.5 See_Comment [A utomated message] The Eosinophils) system which ge nerated this result tra nsmitted reference range : <=4.0. The reference r lily was not used to int erpret this result as normal/abnormal . [facility] PasoOzblmafFWNBQNDBJV4289-18-90 10:11:18 Test Item Value Reference Range Interpretation Comments Basophils # (test code 0.1 See_Comment [Aut omated message] The = Basophils #) system which generated this result tra nsmitted reference range : <=0.2. The reference r lily was not used to int erpret this result as normal/abnormal . [facility] PasoZnmkoqiCXUTFVQAAA5308-11-38 10:11:18 Test Item Value Reference Range Interpretation Comments Segs (test code = Segs) 65.1 45.0-75.0 [facility] PasoNjxwbdbDGWKFGYRCB7179-19-37 10:11:18 Test Item Value Reference Range Interpretation Comments Lymphocytes (test code = Lymphocytes) 23.7 20.0-40.0 [facility] PasoXutaykqKIMYQMKJTN5250-85-53 10:11:18 Test Item Value Reference Range Interpretation Comments Lymphocytes # (test code = Lymphocytes 2.4 1.0-5.5 #) [facility]2016-07-16 10:11:18 Test Item Value Reference Range Interpretation Comments Lactic Acid WB (test code = Lactic Acid 1.3 0.5-2.2 WB) [facility]MrvwvtaXZCNPJMNFLPH6733-15-34 10:11:18 Test Item Value Reference Range Interpretation Comments AGAP (test code = AGAP) 11.5 10.0-20.0 [facility] HospitalFeopzpeWYOCMVEULYCC6707-47-53 10:11:18 Test Item Value Reference Range Interpretation Comments eGFR (test code = eGFR) 87 [facility] HospitalBgdrwlbWESQBNMVTUEB5506-02-14 10:11:18 Test Item Value Reference Range Interpretation Comments Glucose Lvl (test code = Glucose Lvl) 125 70-99 [facility] HospitalZfjgccbEVNWWHBTKGFE4153-88-72 10:11:18 Test Item Value Reference Range Interpretation Comments BUN (test code = BUN) 16 7-22 [facility] HospitalLcxxotkKRGVEGDSNOTM5707-40-95 10:11:18 Test Item Value Reference Range Interpretation Comments Creatinine Lvl (test code = Creatinine 0.74 0.50-1.40 Lvl) [facility] PasoRrkaaulMHJTVHLEAN0391-47-99 10:11:18 Test Item Value Reference Range Interpretation Comments Monocytes # (test code 0.8 See_Comment [Aut omated message] The = Monocytes #) system which generated this result tra nsmitted reference range : <=0.8. The reference r lily was not used to int erpret this result as normal/abnormal . [facility] HospitalQjplluaPVDKWHXNYZLM1568-35-35 10:11:18 Test Item Value Reference Range Interpretation Comments Potassium Lvl (test code = Potassium 3.5 3.5-5.1 Lvl) [facility] HospitalTrvhkthIUJRRWMBPPGH4609-82-52 10:11:18 Test Item Value Reference Range Interpretation Comments Chloride Lvl (test code = Chloride Lvl) 104 95-109 [facility] HospitalHmjwplpUHNFAFFMVVQF7670-68-98 10:11:18 Test Item Value Reference Range Interpretation Comments Sodium Lvl (test code = Sodium Lvl) 141 135-145 [facility] HospitalPpjduvqMRLBUNHAVWWF2234-27-13 10:11:18 Test Item Value Reference Range Interpretation Comments CO2 (test code = CO2) 29 24-32 [facility] HospitalDwdqccfWLTUBIZSUUVV5326-51-58 10:11:18 Test Item Value Reference Range Interpretation Comments Calcium Lvl (test code = Calcium Lvl) 9.4 8.5-10.5 [facility] PasoGsscdweKQMZXTPRPB2994-46-54 10:11:18 Test Item Value Reference Range Interpretation Comments Estimated % Lysis Rapid 1.2 See_Comment [Au tomated message] The (test code = Estimated syste m which generated % Lysis Rapid) this result t ransmitted reference range : <=7.5. The reference r lily was not used to int erpret this result as normal/abnormal . [facility] PasoYcvbyijOUVONHNSXB7914-42-47 10:11:18 Test Item Value Reference Range Interpretation Comments K-time Rapid (test code = K-time 0.8 min 0.6-2.3 Rapid) [facility] PasoDcmstgzQHFFCVVHCX1450-88-12 10:11:18 Test Item Value Reference Range Interpretation Comments Split Point Rapid (test code = Split 0.4 min Point Rapid) [facility] PasoZxgzbuoITUWNMBZFG6185-55-85 10:11:18 Test Item Value Reference Range Interpretation Comments ACT (TEG) Rapid (test code = ACT (TEG) 97 s 86-118 Rapid) [facility] PasoTojryyaIXLTPKSHOX3082-62-70 10:11:18 Test Item Value Reference Range Interpretation Comments R-time Rapid (test code = R-time 0.5 min 0.4-0.7 Rapid) [facility] PasoFubekxePDNJBJIJRB9480-45-88 10:11:18 Test Item Value Reference Range Interpretation Comments Basophils (test code = 0.8 See_Comment [Aut omated message] The Basophils) system which ge nerated this result tra nsmitted reference range : <=1.0. The reference r lily was not used to int erpret this result as normal/abnormal . [facility] PasoHypbtohHRILSFBUPK9351-51-18 10:11:18 Test Item Value Reference Range Interpretation Comments G-value Rapid (test code = G-value 12.5 5.0-11.6 Rapid) [facility] PasoQrbhodzPKKPNDTEPH9930-77-70 10:11:18 Test Item Value Reference Range Interpretation Comments Max Amplitude Rapid (test code = Max 72 mm 52-71 Amplitude Rapid) [facility] PasoHlbawsyDRVAFVAWFA7804-17-36 10:11:18 Test Item Value Reference Range Interpretation Comments Angle Rapid (test code = Angle 79 degrees 64-80 Rapid) [facility] PasoRsnobbmWGYFZFFIZQ5969-83-93 10:11:18 Test Item Value Reference Range Interpretation Comments INR (test code = INR) 0.98 0.85-1.17 [facility] PasoTmndoxfUNOTLFTMDV8543-47-60 10:11:18 Test Item Value Reference Range Interpretation Comments PT (test code = PT) 13.3 s 12.0-14.7 [facility] PasoGtcqkcoELAXLJLVUL3574-56-37 10:11:18 Test Item Value Reference Range Interpretation Comments MPV (test code = MPV) 10.4 7.4-10.4 [facility] PasoHtdkuihOQHDSSUTLK7972-60-59 10:11:18 Test Item Value Reference Range Interpretation Comments Platelet (test code = Platelet) 178 133-450 [facility] PasoBuyuxljPETALZNNWT7518-35-57 10:11:18 Test Item Value Reference Range Interpretation Comments RDW (test code = RDW) 13.2 11.5-14.5 [facility] PasoNfnqdjlQELBTQENEY1999-12-94 10:11:18 Test Item Value Reference Range Interpretation Comments MCH (test code = MCH) 30.4 pg 27.0-31.0 [facility] PasoSoxieboVJWMIGUXCJ5144-57-42 10:11:18 Test Item Value Reference Range Interpretation Comments MCHC (test code = MCHC) 33.7 32.0-36.0 [facility] PasoJhfqqolOLAJTYWINT2180-10-37 10:11:18 Test Item Value Reference Range Interpretation Comments Segs-Bands # (test code = Segs-Bands #) 6.6 1.5-8.1 [facility] PasoXxyltokBZHLBGMVES9027-52-84 10:11:18 Test Item Value Reference Range Interpretation Comments Hgb (test code = Hgb) 12.2 12.0-16.0 [facility] PasoScwetysCHOYCLBEGB8903-55-15 10:11:18 Test Item Value Reference Range Interpretation Comments MCV (test code = MCV) 90.1 80.0-98.0 [facility] PasoKjgqvftDIXEUZIXTU6074-18-51 10:11:18 Test Item Value Reference Range Interpretation Comments Hct (test code = Hct) 36.2 36.0-48.0 [facility] PasoMxvwvubJYNYRLENGL1744-32-54 10:11:18 Test Item Value Reference Range Interpretation Comments RBC (test code = RBC) 4.02 4.20-5.40 [facility] PasoPdtlaghOQDFPMDTFJ5231-22-81 10:11:18 Test Item Value Reference Range Interpretation Comments WBC (test code = WBC) 10.1 3.7-10.4 [facility] PasoBgkxrfcVSHPSCHGPV8839-61-82 10:11:18 Test Item Value Reference Range Interpretation Comments PTT (test code = PTT) 35.5 s 22.9-35.8 [facility] PasoGtrhehsUXFDUTNXOS0143-25-39 10:11:18 Test Item Value Reference Range Interpretation Comments Eosinophils # (test code 0.2 See_Comment [A utomated message] The = Eosinophils #) system whic h generated this result tra nsmitted reference range : <=0.5. The reference r lily was not used to int erpret this result as normal/abnormal . [facility] PasoJkekcaaPWBCUOWZHC3472-20-43 10:11:18 Test Item Value Reference Range Interpretation Comments Monocytes (test code = Monocytes) 7.9 2.0-12.0 [facility] PasoRrjevuwLYLLEOKQYF0969-07-13 10:11:18 Test Item Value Reference Range Interpretation Comments Eosinophils (test code = 2.5 See_Comment [A utomated message] The Eosinophils) system which ge nerated this result tra nsmitted reference range : <=4.0. The reference r lily was not used to int erpret this result as normal/abnormal . [facility] PasoRpnaiwmFBFDQMWPBQ9332-60-82 10:11:18 Test Item Value Reference Range Interpretation Comments Basophils # (test code 0.1 See_Comment [Aut omated message] The = Basophils #) system which generated this result tra nsmitted reference range : <=0.2. The reference r lily was not used to int erpret this result as normal/abnormal . [facility] PasoNfoduqpNLWENTXMFN6747-01-72 10:11:18 Test Item Value Reference Range Interpretation Comments Segs (test code = Segs) 65.1 45.0-75.0 [facility] PasoRyfddmbZTZIFWNZKY2003-96-11 10:11:18 Test Item Value Reference Range Interpretation Comments Lymphocytes (test code = Lymphocytes) 23.7 20.0-40.0 [facility] PasoKlombgjSLEUBYROWV9686-47-45 10:11:18 Test Item Value Reference Range Interpretation Comments Lymphocytes # (test code = Lymphocytes 2.4 1.0-5.5 #) [facility] PasoRjtomvlCFTCYFNPCD9783-31-84 10:11:18 Test Item Value Reference Range Interpretation Comments Monocytes # (test code 0.8 See_Comment [Aut omated message] The = Monocytes #) system which generated this result tra nsmitted reference range : <=0.8. The reference r lily was not used to int erpret this result as normal/abnormal . [facility] PasoHhwwwnfZPIOBEQYWG0535-47-36 10:11:18 Test Item Value Reference Range Interpretation Comments Basophils (test code = 0.8 See_Comment [Aut omated message] The Basophils) system which ge nerated this result tra nsmitted reference range : <=1.0. The reference r lily was not used to int erpret this result as normal/abnormal . [facility] PasoJfstqsrWCJVHHOSXO4549-01-31 10:11:18 Test Item Value Reference Range Interpretation Comments Segs-Bands # (test code = Segs-Bands #) 6.6 1.5-8.1 [facility] CampusCHEM IESFP9456-18-52 10:11:18 Test Item Value Reference Range Interpretation Comments Lactic Acid WB (test code = Lactic Acid 1.3 0.5-2.2 WB) [facility] HospitalKlonaclAZOEXXXXSHWU0801-41-84 10:11:18 Test Item Value Reference Range Interpretation Comments AGAP (test code = AGAP) 11.5 10.0-20.0 [facility] HospitalRygrpwaCKOBJHGZSBJU2232-35-71 10:11:18 Test Item Value Reference Range Interpretation Comments eGFR (test code = eGFR) 87 [facility] HospitalVfngmobKMELLSIANHLG4638-81-35 10:11:18 Test Item Value Reference Range Interpretation Comments Glucose Lvl (test code = Glucose Lvl) 125 70-99 [facility] HospitalFujzpvjCQMEFITVIBQJ6225-80-44 10:11:18 Test Item Value Reference Range Interpretation Comments BUN (test code = BUN) 16 7-22 [facility] HospitalDgvpvxwDAYBRLWTENOK0404-20-62 10:11:18 Test Item Value Reference Range Interpretation Comments Creatinine Lvl (test code = Creatinine 0.74 0.50-1.40 Lvl) [facility] HospitalWkrzyiiJMRRKPXHHGLJ7871-49-03 10:11:18 Test Item Value Reference Range Interpretation Comments Potassium Lvl (test code = Potassium 3.5 3.5-5.1 Lvl) [facility] HospitalIccbievGXASQXHYAVSS2250-40-54 10:11:18 Test Item Value Reference Range Interpretation Comments Chloride Lvl (test code = Chloride Lvl) 104 95-109 [facility] HospitalZlgpnrjPUOCIWTURJZB2420-51-30 10:11:18 Test Item Value Reference Range Interpretation Comments Sodium Lvl (test code = Sodium Lvl) 141 135-145 [facility] HospitalZwndvmdSEWVPQVPWEVV9205-02-65 10:11:18 Test Item Value Reference Range Interpretation Comments CO2 (test code = CO2) 29 24-32 [facility] HospitalPkdqzvbTAIEPXDAVGHT6503-80-26 10:11:18 Test Item Value Reference Range Interpretation Comments Calcium Lvl (test code = Calcium Lvl) 9.4 8.5-10.5 [facility] CampusIjffchmVSTPBIXSKE7083-58-22 10:11:18 Test Item Value Reference Range Interpretation Comments Estimated % Lysis Rapid 1.2 See_Comment [Au tomated message] The (test code = Estimated syste m which generated % Lysis Rapid) this result t ransmitted reference range : <=7.5. The reference r lily was not used to int erpret this result as normal/abnormal . [facility] PasoRhfzeewEVNHLDWCLT4795-78-95 10:11:18 Test Item Value Reference Range Interpretation Comments K-time Rapid (test code = K-time 0.8 min 0.6-2.3 Rapid) [facility] PasoMkddvyiSSTRSAOFDQ8632-59-31 10:11:18 Test Item Value Reference Range Interpretation Comments Split Point Rapid (test code = Split 0.4 min Point Rapid) [facility] PasoNeiuonrRXJJWLACZB4928-82-17 10:11:18 Test Item Value Reference Range Interpretation Comments ACT (TEG) Rapid (test code = ACT (TEG) 97 s 86-118 Rapid) [facility] PasoWozdmeiGBHHJEHFJA6823-80-86 10:11:18 Test Item Value Reference Range Interpretation Comments R-time Rapid (test code = R-time 0.5 min 0.4-0.7 Rapid) [facility] PasoXwkmfvpBOMTCYAWRH8418-97-98 10:11:18 Test Item Value Reference Range Interpretation Comments G-value Rapid (test code = G-value 12.5 5.0-11.6 Rapid) [facility] PasoYuvkwjuHKASBGSQDN3984-39-24 10:11:18 Test Item Value Reference Range Interpretation Comments Max Amplitude Rapid (test code = Max 72 mm 52-71 Amplitude Rapid) [facility] PasoWseujbaZWPATKZBVO1052-04-45 10:11:18 Test Item Value Reference Range Interpretation Comments Angle Rapid (test code = Angle 79 degrees 64-80 Rapid) [facility] PasoCsmkhsmEMLUUETFYS3862-74-08 10:11:18 Test Item Value Reference Range Interpretation Comments INR (test code = INR) 0.98 0.85-1.17 [facility] PasoMwgmrqeOPWCOFOSIS8802-40-58 10:11:18 Test Item Value Reference Range Interpretation Comments PT (test code = PT) 13.3 s 12.0-14.7 [facility] PasoWyxdmkaOMXVGUTPWX9681-22-95 10:11:18 Test Item Value Reference Range Interpretation Comments MPV (test code = MPV) 10.4 7.4-10.4 [facility] PasoKcnmwjqBSLGYDPRQD5795-10-96 10:11:18 Test Item Value Reference Range Interpretation Comments Platelet (test code = Platelet) 178 133-450 [facility] PasoJxnjbunLSENPOZIMI3339-10-51 10:11:18 Test Item Value Reference Range Interpretation Comments RDW (test code = RDW) 13.2 11.5-14.5 [facility] PasoTduuslxTKCFJIIMHP4137-95-66 10:11:18 Test Item Value Reference Range Interpretation Comments MCH (test code = MCH) 30.4 pg 27.0-31.0 [facility] PasoWcghakzQECBTHAALA4889-73-03 10:11:18 Test Item Value Reference Range Interpretation Comments MCHC (test code = MCHC) 33.7 32.0-36.0 [facility] PasoKgaajvgEAVWLDLABK6407-51-56 10:11:18 Test Item Value Reference Range Interpretation Comments Hgb (test code = Hgb) 12.2 12.0-16.0 [facility] PasoEnjawwnNQUUOTCWUB8105-00-36 10:11:18 Test Item Value Reference Range Interpretation Comments MCV (test code = MCV) 90.1 80.0-98.0 [facility] PasoWwrkolhIDSRENFYYJ4680-01-38 10:11:18 Test Item Value Reference Range Interpretation Comments Hct (test code = Hct) 36.2 36.0-48.0 [facility] PasoYylnlmdKGFTIIGCSN7112-72-47 10:11:18 Test Item Value Reference Range Interpretation Comments RBC (test code = RBC) 4.02 4.20-5.40 [facility] PasoTdfsbypDEHTEJCOSE2505-15-84 10:11:18 Test Item Value Reference Range Interpretation Comments WBC (test code = WBC) 10.1 3.7-10.4 [facility] PasoIcbacixRSJNZTABXY0523-23-23 10:11:18 Test Item Value Reference Range Interpretation Comments PTT (test code = PTT) 35.5 s 22.9-35.8 [facility] PasoTfumgyvFOPPEHTCHY0139-44-75 10:11:18 Test Item Value Reference Range Interpretation Comments Eosinophils # (test code 0.2 See_Comment [A utomated message] The = Eosinophils #) system whic h generated this result tra nsmitted reference range : <=0.5. The reference r lily was not used to int erpret this result as normal/abnormal . [facility] PasoSpiogluLOADBMZTLJ7739-22-60 10:11:18 Test Item Value Reference Range Interpretation Comments Monocytes (test code = Monocytes) 7.9 2.0-12.0 [facility] PasoSnwntuhQXSBVEVYTV4874-25-55 10:11:18 Test Item Value Reference Range Interpretation Comments Eosinophils (test code = 2.5 See_Comment [A utomated message] The Eosinophils) system which ge nerated this result tra nsmitted reference range : <=4.0. The reference r lily was not used to int erpret this result as normal/abnormal . [facility] PasoYzojsntJJLWDMCTQU8606-68-06 10:11:18 Test Item Value Reference Range Interpretation Comments Basophils # (test code 0.1 See_Comment [Aut omated message] The = Basophils #) system which generated this result tra nsmitted reference range : <=0.2. The reference r lily was not used to int erpret this result as normal/abnormal . [facility] PasoPkomriwZECKRDQDTC7532-60-34 10:11:18 Test Item Value Reference Range Interpretation Comments Segs (test code = Segs) 65.1 45.0-75.0 [facility] PasoVewnyfmQXYLHLLBSF8977-67-29 10:11:18 Test Item Value Reference Range Interpretation Comments Lymphocytes (test code = Lymphocytes) 23.7 20.0-40.0 [facility] PasoQnitukvXFWSHKCOPK2741-51-21 10:11:18 Test Item Value Reference Range Interpretation Comments Lymphocytes # (test code = Lymphocytes 2.4 1.0-5.5 #) [facility] PasoYmpxwmpVPZOKHXDQJ6529-97-82 10:11:18 Test Item Value Reference Range Interpretation Comments Monocytes # (test code 0.8 See_Comment [Aut omated message] The = Monocytes #) system which generated this result tra nsmitted reference range : <=0.8. The reference r lily was not used to int erpret this result as normal/abnormal . [facility] PasoZhwzwurIRIABPVTER3467-36-23 10:11:18 Test Item Value Reference Range Interpretation Comments Basophils (test code = 0.8 See_Comment [Aut omated message] The Basophils) system which ge nerated this result tra nsmitted reference range : <=1.0. The reference r lily was not used to int erpret this result as normal/abnormal . [facility] PasoNkchzxrKHMCDPDBWG5547-32-86 10:11:18 Test Item Value Reference Range Interpretation Comments Segs-Bands # (test code = Segs-Bands #) 6.6 1.5-8.1 [facility]2016-07-16 10:11:18 Test Item Value Reference Range Interpretation Comments Lactic Acid WB (test code = Lactic Acid 1.3 0.5-2.2 WB) [facility] HospitalEaypzwmCMWUUCCVCMDG6355-48-85 10:11:18 Test Item Value Reference Range Interpretation Comments AGAP (test code = AGAP) 11.5 10.0-20.0 [facility] HospitalFdbkzlnIVMEGCGAFQND0980-69-32 10:11:18 Test Item Value Reference Range Interpretation Comments eGFR (test code = eGFR) 87 [facility] HospitalAzbiganACYEXSFFHVBE3913-08-27 10:11:18 Test Item Value Reference Range Interpretation Comments Glucose Lvl (test code = Glucose Lvl) 125 70-99 [facility] HospitalCzgfoqeLBESBJXJUJNR9129-91-07 10:11:18 Test Item Value Reference Range Interpretation Comments BUN (test code = BUN) 16 7-22 [facility] HospitalXbrpytbXGBHDOZYFIPC3587-52-67 10:11:18 Test Item Value Reference Range Interpretation Comments Creatinine Lvl (test code = Creatinine 0.74 0.50-1.40 Lvl) [facility] HospitalHhsjqubVIXDMNUAFZJR5481-04-68 10:11:18 Test Item Value Reference Range Interpretation Comments Potassium Lvl (test code = Potassium 3.5 3.5-5.1 Lvl) [facility] HospitalEwpylulEZCIVKPZAMVI7536-90-33 10:11:18 Test Item Value Reference Range Interpretation Comments Chloride Lvl (test code = Chloride Lvl) 104 95-109 [facility] HospitalWecrydwUPFKVDCCEAOM0387-82-82 10:11:18 Test Item Value Reference Range Interpretation Comments Sodium Lvl (test code = Sodium Lvl) 141 135-145 [facility] HospitalOvlyyhdKIUWTYDIDJJD6736-88-73 10:11:18 Test Item Value Reference Range Interpretation Comments CO2 (test code = CO2) 29 24-32 [facility] HospitalTiixmyyUIBQHHCYAQPG8706-19-67 10:11:18 Test Item Value Reference Range Interpretation Comments Calcium Lvl (test code = Calcium Lvl) 9.4 8.5-10.5 [facility] CampusDibrkrpWRRWXFSRNN6161-46-12 10:11:18 Test Item Value Reference Range Interpretation Comments Estimated % Lysis Rapid 1.2 See_Comment [Au tomated message] The (test code = Estimated syste m which generated % Lysis Rapid) this result t ransmitted reference range : <=7.5. The reference r lily was not used to int erpret this result as normal/abnormal . [facility] PasoKhfuridEOPJUWLZFH5738-41-53 10:11:18 Test Item Value Reference Range Interpretation Comments K-time Rapid (test code = K-time 0.8 min 0.6-2.3 Rapid) [facility] PasoZgavljbTCOMIMNJNX4892-76-15 10:11:18 Test Item Value Reference Range Interpretation Comments Split Point Rapid (test code = Split 0.4 min Point Rapid) [facility] PasoUucizsjMAAMVTEQUM7575-05-83 10:11:18 Test Item Value Reference Range Interpretation Comments ACT (TEG) Rapid (test code = ACT (TEG) 97 s 86-118 Rapid) [facility] PasoErpjgfiFMDSQJCYRJ7998-92-80 10:11:18 Test Item Value Reference Range Interpretation Comments R-time Rapid (test code = R-time 0.5 min 0.4-0.7 Rapid) [facility] PasoMlqsgtfFIBZALGKAZ2748-14-47 10:11:18 Test Item Value Reference Range Interpretation Comments G-value Rapid (test code = G-value 12.5 5.0-11.6 Rapid) [facility] PasoAajbwnvEXYGLMXOQN4940-06-87 10:11:18 Test Item Value Reference Range Interpretation Comments Max Amplitude Rapid (test code = Max 72 mm 52-71 Amplitude Rapid) [facility] PasoCzuxfxgSRBQMEZGDB0964-27-04 10:11:18 Test Item Value Reference Range Interpretation Comments Angle Rapid (test code = Angle 79 degrees 64-80 Rapid) [facility] PasoCkjqezxXZGVDVGMSU9984-83-55 10:11:18 Test Item Value Reference Range Interpretation Comments INR (test code = INR) 0.98 0.85-1.17 [facility] PasoTqbvqurRHKKFMSBUB9267-67-02 10:11:18 Test Item Value Reference Range Interpretation Comments PT (test code = PT) 13.3 s 12.0-14.7 [facility] PasoCrafukzGGNPXLAVKH0809-98-15 10:11:18 Test Item Value Reference Range Interpretation Comments MPV (test code = MPV) 10.4 7.4-10.4 [facility] PasoQqaxoiiZBXZMBGEPV7359-82-11 10:11:18 Test Item Value Reference Range Interpretation Comments Platelet (test code = Platelet) 178 133-450 [facility] PasoVxmlbsrXTVEAAMRFW9119-53-58 10:11:18 Test Item Value Reference Range Interpretation Comments RDW (test code = RDW) 13.2 11.5-14.5 [facility] PasoJjarpktAFEWRFDIQM3907-16-12 10:11:18 Test Item Value Reference Range Interpretation Comments MCH (test code = MCH) 30.4 pg 27.0-31.0 [facility] PasoErtxoieEZFEAUVRQE6732-81-52 10:11:18 Test Item Value Reference Range Interpretation Comments MCHC (test code = MCHC) 33.7 32.0-36.0 [facility] PasoShhpmueYRDWVSERAM5507-12-04 10:11:18 Test Item Value Reference Range Interpretation Comments Hgb (test code = Hgb) 12.2 12.0-16.0 [facility] PasoSmeppjeOCETEOKIIX7793-24-27 10:11:18 Test Item Value Reference Range Interpretation Comments MCV (test code = MCV) 90.1 80.0-98.0 [facility] PasoNhxmdohJQPWCPCQRV3119-65-46 10:11:18 Test Item Value Reference Range Interpretation Comments Hct (test code = Hct) 36.2 36.0-48.0 [facility] PasoOqjtctkALSKDIBHXX9005-64-19 10:11:18 Test Item Value Reference Range Interpretation Comments RBC (test code = RBC) 4.02 4.20-5.40 [facility] PasoVqvdxcdWTCLUTDXSV4205-67-87 10:11:18 Test Item Value Reference Range Interpretation Comments WBC (test code = WBC) 10.1 3.7-10.4 [facility] PasoZqaanyaUZBLFGTQHY7310-50-08 10:11:18 Test Item Value Reference Range Interpretation Comments PTT (test code = PTT) 35.5 s 22.9-35.8 [facility] PasoMmwwqltTBKQWXXVNT7837-54-76 10:11:18 Test Item Value Reference Range Interpretation Comments Eosinophils # (test code 0.2 See_Comment [A utomated message] The = Eosinophils #) system whic h generated this result tra nsmitted reference range : <=0.5. The reference r lily was not used to int erpret this result as normal/abnormal . [facility] PasoZikiydhPPQTNRVIDB5948-27-49 10:11:18 Test Item Value Reference Range Interpretation Comments Monocytes (test code = Monocytes) 7.9 2.0-12.0 [facility] PasoAnizlogYMOAHWSLIP0943-42-18 10:11:18 Test Item Value Reference Range Interpretation Comments Eosinophils (test code = 2.5 See_Comment [A utomated message] The Eosinophils) system which ge nerated this result tra nsmitted reference range : <=4.0. The reference r lily was not used to int erpret this result as normal/abnormal . [facility] PasoNdcxqusILQOPFXQHJ0259-25-68 10:11:18 Test Item Value Reference Range Interpretation Comments Basophils # (test code 0.1 See_Comment [Aut omated message] The = Basophils #) system which generated this result tra nsmitted reference range : <=0.2. The reference r lily was not used to int erpret this result as normal/abnormal . [facility] PasoBubbznxDQUSMFGDPA7567-99-20 10:11:18 Test Item Value Reference Range Interpretation Comments Segs (test code = Segs) 65.1 45.0-75.0 [facility] PasoEtvplmpAIDLVMKOZQ5378-83-94 10:11:18 Test Item Value Reference Range Interpretation Comments Lymphocytes (test code = Lymphocytes) 23.7 20.0-40.0 [facility] PasoPqwzoqeYXHFJOFNHS4804-26-82 10:11:18 Test Item Value Reference Range Interpretation Comments Lymphocytes # (test code = Lymphocytes 2.4 1.0-5.5 #) [facility] PasoGcslsxoEOXESWOOBM5853-40-83 10:11:18 Test Item Value Reference Range Interpretation Comments Monocytes # (test code 0.8 See_Comment [Aut omated message] The = Monocytes #) system which generated this result tra nsmitted reference range : <=0.8. The reference r lily was not used to int erpret this result as normal/abnormal . [facility] PasoOohckahCGTOOCTLVQ7167-10-25 10:11:18 Test Item Value Reference Range Interpretation Comments Basophils (test code = 0.8 See_Comment [Aut omated message] The Basophils) system which ge nerated this result tra nsmitted reference range : <=1.0. The reference r lily was not used to int erpret this result as normal/abnormal . [facility] PasoYvzgpmfKUTWMPYKSR8973-41-67 10:11:18 Test Item Value Reference Range Interpretation Comments Segs-Bands # (test code = Segs-Bands #) 6.6 1.5-8.1 [facility]2016-07-16 10:11:18 Test Item Value Reference Range Interpretation Comments Lactic Acid WB (test code = Lactic Acid 1.3 0.5-2.2 WB) [facility]HfemosdVZXUDJQKQBGL0978-97-80 10:11:18 Test Item Value Reference Range Interpretation Comments AGAP (test code = AGAP) 11.5 10.0-20.0 [facility] HospitalVjqjhzfQDYGFJDDLRDK7552-31-02 10:11:18 Test Item Value Reference Range Interpretation Comments eGFR (test code = eGFR) 87 [facility] HospitalNpkidibDTYHLUIMVYGO5528-67-01 10:11:18 Test Item Value Reference Range Interpretation Comments Glucose Lvl (test code = Glucose Lvl) 125 70-99 [facility] HospitalGywohmtTFKUBGLHATNZ1915-16-35 10:11:18 Test Item Value Reference Range Interpretation Comments BUN (test code = BUN) 16 7-22 [facility] HospitalGppzcajISLKKWYVEXHA3234-60-68 10:11:18 Test Item Value Reference Range Interpretation Comments Creatinine Lvl (test code = Creatinine 0.74 0.50-1.40 Lvl) [facility] HospitalWlnrctvZRCCMCIILUXS3927-48-47 10:11:18 Test Item Value Reference Range Interpretation Comments Potassium Lvl (test code = Potassium 3.5 3.5-5.1 Lvl) [facility] HospitalWstweqfPYODVCMPFJQN2021-27-59 10:11:18 Test Item Value Reference Range Interpretation Comments Chloride Lvl (test code = Chloride Lvl) 104 95-109 [facility] HospitalZjwbnypKTJYHZLDOKIZ6948-34-42 10:11:18 Test Item Value Reference Range Interpretation Comments Sodium Lvl (test code = Sodium Lvl) 141 135-145 [facility] HospitalNcrmrysRVCTPAHOFVGH1368-59-45 10:11:18 Test Item Value Reference Range Interpretation Comments CO2 (test code = CO2) 29 24-32 [facility] HospitalFbqkgfvKUHSXYKECFQF6124-13-40 10:11:18 Test Item Value Reference Range Interpretation Comments Calcium Lvl (test code = Calcium Lvl) 9.4 8.5-10.5 [facility] PasoVrupbgjZQYJUPHVSF1248-27-16 10:11:18 Test Item Value Reference Range Interpretation Comments Estimated % Lysis Rapid 1.2 See_Comment [Au tomated message] The (test code = Estimated syste m which generated % Lysis Rapid) this result t ransmitted reference range : <=7.5. The reference r lily was not used to int erpret this result as normal/abnormal . [facility] PasoDpzpmuuTEHGENEGHZ3012-74-32 10:11:18 Test Item Value Reference Range Interpretation Comments K-time Rapid (test code = K-time 0.8 min 0.6-2.3 Rapid) [facility] PasoBoitldtVYUIJSBZMY4524-89-26 10:11:18 Test Item Value Reference Range Interpretation Comments Split Point Rapid (test code = Split 0.4 min Point Rapid) [facility] PasoCvupwxaWDXKPORHJW3622-54-88 10:11:18 Test Item Value Reference Range Interpretation Comments ACT (TEG) Rapid (test code = ACT (TEG) 97 s 86-118 Rapid) [facility] PasoYechwscRTSLLSDIAD9434-02-26 10:11:18 Test Item Value Reference Range Interpretation Comments R-time Rapid (test code = R-time 0.5 min 0.4-0.7 Rapid) [facility] PasoUcpkjeiVFNXZPHZAG4152-04-98 10:11:18 Test Item Value Reference Range Interpretation Comments G-value Rapid (test code = G-value 12.5 5.0-11.6 Rapid) [facility] PasoJcludroIFHNHEWGIJ8033-24-82 10:11:18 Test Item Value Reference Range Interpretation Comments Max Amplitude Rapid (test code = Max 72 mm 52-71 Amplitude Rapid) [facility] PasoVqdkcvuIMKOYWASKS7508-43-15 10:11:18 Test Item Value Reference Range Interpretation Comments Angle Rapid (test code = Angle 79 degrees 64-80 Rapid) [facility] PasoMpbcsflWNGJHFMTCM4527-32-71 10:11:18 Test Item Value Reference Range Interpretation Comments INR (test code = INR) 0.98 0.85-1.17 [facility] PasoNaynykoYGQMZCIBGX4164-40-48 10:11:18 Test Item Value Reference Range Interpretation Comments PT (test code = PT) 13.3 s 12.0-14.7 [facility] PasoGubnxkhKXBGNOYYYB2586-06-31 10:11:18 Test Item Value Reference Range Interpretation Comments MPV (test code = MPV) 10.4 7.4-10.4 [facility] PasoCpfdcsjNFIWLGGHYS3218-17-48 10:11:18 Test Item Value Reference Range Interpretation Comments Platelet (test code = Platelet) 178 133-450 [facility] PasoOwyaxcfSOGZABMTUF1778-32-15 10:11:18 Test Item Value Reference Range Interpretation Comments RDW (test code = RDW) 13.2 11.5-14.5 [facility] PasoYtrulhyNYPWIMICBO1870-99-71 10:11:18 Test Item Value Reference Range Interpretation Comments MCH (test code = MCH) 30.4 pg 27.0-31.0 [facility] PasoIjsxemiGRIBLYJWFH3213-80-83 10:11:18 Test Item Value Reference Range Interpretation Comments MCHC (test code = MCHC) 33.7 32.0-36.0 [facility] PasoDiszhsvBKIGWGWYJI3054-33-86 10:11:18 Test Item Value Reference Range Interpretation Comments Hgb (test code = Hgb) 12.2 12.0-16.0 [facility] PasoBvoojowMMCOAUWYGB7281-76-41 10:11:18 Test Item Value Reference Range Interpretation Comments MCV (test code = MCV) 90.1 80.0-98.0 [facility] PasoJboeqlyOKDDGRWONN5071-06-60 10:11:18 Test Item Value Reference Range Interpretation Comments Hct (test code = Hct) 36.2 36.0-48.0 [facility] PasoSjlrlsaXRNLCKGZLO0831-40-50 10:11:18 Test Item Value Reference Range Interpretation Comments RBC (test code = RBC) 4.02 4.20-5.40 [facility] PasoXnluskvRXOHVOATOS3965-14-79 10:11:18 Test Item Value Reference Range Interpretation Comments WBC (test code = WBC) 10.1 3.7-10.4 [facility] PasoRqbreplEZBNLRNARH7168-03-19 10:11:18 Test Item Value Reference Range Interpretation Comments PTT (test code = PTT) 35.5 s 22.9-35.8 [facility] PasoGlvfakyBAJOUXSIBO7204-68-73 10:11:18 Test Item Value Reference Range Interpretation Comments Eosinophils # (test code 0.2 See_Comment [A utomated message] The = Eosinophils #) system ic h generated this result tra nsmitted reference range : <=0.5. The reference r lily was not used to int erpret this result as normal/abnormal . [facility] PasoUtyeqcdFQJLUXFXZU1233-95-02 10:11:18 Test Item Value Reference Range Interpretation Comments Monocytes (test code = Monocytes) 7.9 2.0-12.0 [facility] PasoBpnlcvsBBOYXDBXIF4554-70-25 10:11:18 Test Item Value Reference Range Interpretation Comments Eosinophils (test code = 2.5 See_Comment [A utomated message] The Eosinophils) system which ge nerated this result tra nsmitted reference range : <=4.0. The reference r lily was not used to int erpret this result as normal/abnormal . [facility] PasoKckvnatCONMLXVTBI2476-98-64 10:11:18 Test Item Value Reference Range Interpretation Comments Basophils # (test code 0.1 See_Comment [Aut omated message] The = Basophils #) system which generated this result tra nsmitted reference range : <=0.2. The reference r lily was not used to int erpret this result as normal/abnormal . [facility] PasoKvjedlzMAQKNAKYCC2763-61-74 10:11:18 Test Item Value Reference Range Interpretation Comments Segs (test code = Segs) 65.1 45.0-75.0 [facility] PasoNqabyztDGCQBRHYVC7595-65-10 10:11:18 Test Item Value Reference Range Interpretation Comments Lymphocytes (test code = Lymphocytes) 23.7 20.0-40.0 [facility] PasoAnbwrqcTBMUTGHWFP3727-95-63 10:11:18 Test Item Value Reference Range Interpretation Comments Lymphocytes # (test code = Lymphocytes 2.4 1.0-5.5 #) [facility] PasoRwaevgsKYJBTUSHMG5143-79-62 10:11:18 Test Item Value Reference Range Interpretation Comments Monocytes # (test code 0.8 See_Comment [Aut omated message] The = Monocytes #) system which generated this result tra nsmitted reference range : <=0.8. The reference r lily was not used to int erpret this result as normal/abnormal . [facility] PasoGakwryfPTZLWMFHYZ3526-78-88 10:11:18 Test Item Value Reference Range Interpretation Comments Basophils (test code = 0.8 See_Comment [Aut omated message] The Basophils) system which ge nerated this result tra nsmitted reference range : <=1.0. The reference r lily was not used to int erpret this result as normal/abnormal . [facility] PasoPvcwclwUNEEDGBWLH6121-93-41 10:11:18 Test Item Value Reference Range Interpretation Comments Segs-Bands # (test code = Segs-Bands #) 6.6 1.5-8.1 [facility] FKPWG1137-56-02 10:11:18 Test Item Value Reference Range Interpretation Comments Lactic Acid WB (test code = Lactic Acid 1.3 0.5-2.2 WB) [facility]EijyeuqDSUBTSPQAMKZ8969-01-61 10:11:18 Test Item Value Reference Range Interpretation Comments AGAP (test code = AGAP) 11.5 10.0-20.0 [facility] HospitalFmrxtosPLMTGTDDDEGJ0379-86-84 10:11:18 Test Item Value Reference Range Interpretation Comments eGFR (test code = eGFR) 87 [facility] HospitalXxhhybjZNKHZNYZMWZI3470-88-72 10:11:18 Test Item Value Reference Range Interpretation Comments Glucose Lvl (test code = Glucose Lvl) 125 70-99 [facility] HospitalCwollecGIDVDGLIWHJK4941-07-76 10:11:18 Test Item Value Reference Range Interpretation Comments BUN (test code = BUN) 16 7-22 [facility] HospitalQyrnipgZPGPAZJOIOAM8410-03-82 10:11:18 Test Item Value Reference Range Interpretation Comments Creatinine Lvl (test code = Creatinine 0.74 0.50-1.40 Lvl) [facility] HospitalKnyuifzZCIRQNTFEZNA1218-18-37 10:11:18 Test Item Value Reference Range Interpretation Comments Potassium Lvl (test code = Potassium 3.5 3.5-5.1 Lvl) [facility] HospitalNdbuywgVSOSNAADBCUV5169-19-99 10:11:18 Test Item Value Reference Range Interpretation Comments Chloride Lvl (test code = Chloride Lvl) 104 95-109 [facility] HospitalMopefbyQPHYTCGVNIFM7090-30-70 10:11:18 Test Item Value Reference Range Interpretation Comments Sodium Lvl (test code = Sodium Lvl) 141 135-145 [facility] HospitalQizvyorSXQVQCRTEHIK1073-21-25 10:11:18 Test Item Value Reference Range Interpretation Comments CO2 (test code = CO2) 29 24-32 [facility] HospitalQlxsruqGOXBMWLQTVPS0142-00-80 10:11:18 Test Item Value Reference Range Interpretation Comments Calcium Lvl (test code = Calcium Lvl) 9.4 8.5-10.5 [facility] PasoOwwtakfKEAYZGJSTJ2306-14-08 10:11:18 Test Item Value Reference Range Interpretation Comments Estimated % Lysis Rapid 1.2 See_Comment [Au tomated message] The (test code = Estimated syste m which generated % Lysis Rapid) this result t ransmitted reference range : <=7.5. The reference r lily was not used to int erpret this result as normal/abnormal . [facility] PasoGecdvfoJKXUTTFCQP1493-49-48 10:11:18 Test Item Value Reference Range Interpretation Comments K-time Rapid (test code = K-time 0.8 min 0.6-2.3 Rapid) [facility] PasoRnkhqmkIXIFZZXHDP4676-47-58 10:11:18 Test Item Value Reference Range Interpretation Comments Split Point Rapid (test code = Split 0.4 min Point Rapid) [facility] PasoXnojlpbYCFPILAWPE5875-71-79 10:11:18 Test Item Value Reference Range Interpretation Comments ACT (TEG) Rapid (test code = ACT (TEG) 97 s 86-118 Rapid) [facility] PasoQghaujfNNXYCORAHA2125-88-75 10:11:18 Test Item Value Reference Range Interpretation Comments R-time Rapid (test code = R-time 0.5 min 0.4-0.7 Rapid) [facility] PasoKpcgghdVGEVXCOLEV4551-32-18 10:11:18 Test Item Value Reference Range Interpretation Comments G-value Rapid (test code = G-value 12.5 5.0-11.6 Rapid) [facility] PasoSgujwcnKFPQXOUDYJ3056-85-90 10:11:18 Test Item Value Reference Range Interpretation Comments Max Amplitude Rapid (test code = Max 72 mm 52-71 Amplitude Rapid) [facility] PasoNmelmpfWYTDGXFRAJ0134-74-55 10:11:18 Test Item Value Reference Range Interpretation Comments Angle Rapid (test code = Angle 79 degrees 64-80 Rapid) [facility] PasoTcnqaiaUXCKRDAMEB6025-63-26 10:11:18 Test Item Value Reference Range Interpretation Comments INR (test code = INR) 0.98 0.85-1.17 [facility] PasoVbugdfsMXBQTCIHOQ6991-58-74 10:11:18 Test Item Value Reference Range Interpretation Comments PT (test code = PT) 13.3 s 12.0-14.7 [facility] PasoOnjourrPRRPRPMLEI3778-03-21 10:11:18 Test Item Value Reference Range Interpretation Comments MPV (test code = MPV) 10.4 7.4-10.4 [facility] PasoDhwivxdYXRZEAGPZA2896-39-28 10:11:18 Test Item Value Reference Range Interpretation Comments Platelet (test code = Platelet) 178 133-450 [facility] PasoFpplkldROKNOVVVKZ0637-98-33 10:11:18 Test Item Value Reference Range Interpretation Comments RDW (test code = RDW) 13.2 11.5-14.5 [facility] PasoGtamikqZLMGBMXEHR6705-44-66 10:11:18 Test Item Value Reference Range Interpretation Comments MCH (test code = MCH) 30.4 pg 27.0-31.0 [facility] PasoXkllmsdYCLVWDXWGD5982-44-71 10:11:18 Test Item Value Reference Range Interpretation Comments MCHC (test code = MCHC) 33.7 32.0-36.0 [facility] PasoKjvvfudELIOTQPSIX6011-06-79 10:11:18 Test Item Value Reference Range Interpretation Comments Hgb (test code = Hgb) 12.2 12.0-16.0 [facility] PasoOghplroJCASZNXQWV8496-17-24 10:11:18 Test Item Value Reference Range Interpretation Comments MCV (test code = MCV) 90.1 80.0-98.0 [facility] PasoKomjnwwZWCPZNCNBV1018-80-21 10:11:18 Test Item Value Reference Range Interpretation Comments Hct (test code = Hct) 36.2 36.0-48.0 [facility] PasoYgwnvubGQDBRIKCBF9434-18-97 10:11:18 Test Item Value Reference Range Interpretation Comments RBC (test code = RBC) 4.02 4.20-5.40 [facility] PasoJszvetwKVXCVNLANC0773-78-23 10:11:18 Test Item Value Reference Range Interpretation Comments WBC (test code = WBC) 10.1 3.7-10.4 [facility] PasoNsqhjplPFLKUYTTCK7821-45-40 10:11:18 Test Item Value Reference Range Interpretation Comments PTT (test code = PTT) 35.5 s 22.9-35.8 [facility] PasoWaoisrjHSSQQBQPNZ9883-82-06 10:11:18 Test Item Value Reference Range Interpretation Comments Eosinophils # (test code 0.2 See_Comment [A utomated message] The = Eosinophils #) system whic h generated this result tra nsmitted reference range : <=0.5. The reference r lily was not used to int erpret this result as normal/abnormal . [facility] PasoCguvpanRCHGNLPYDF3102-38-91 10:11:18 Test Item Value Reference Range Interpretation Comments Monocytes (test code = Monocytes) 7.9 2.0-12.0 [facility] PasoPdvostwRSKCQTRBFY2675-89-92 10:11:18 Test Item Value Reference Range Interpretation Comments Eosinophils (test code = 2.5 See_Comment [A utomated message] The Eosinophils) system which ge nerated this result tra nsmitted reference range : <=4.0. The reference r lily was not used to int erpret this result as normal/abnormal . [facility] PasoQhyeznpJYEORPBWFA1082-31-44 10:11:18 Test Item Value Reference Range Interpretation Comments Basophils # (test code 0.1 See_Comment [Aut omated message] The = Basophils #) system which generated this result tra nsmitted reference range : <=0.2. The reference r lily was not used to int erpret this result as normal/abnormal . [facility] PasoWdtjnjlMTYFEMTGLE4294-87-24 10:11:18 Test Item Value Reference Range Interpretation Comments Segs (test code = Segs) 65.1 45.0-75.0 [facility] PasoNbcvvhdCORXRTHJZG7382-21-99 10:11:18 Test Item Value Reference Range Interpretation Comments Lymphocytes (test code = Lymphocytes) 23.7 20.0-40.0 [facility] PasoVclzoxkHRXSRTSFFA5237-24-14 10:11:18 Test Item Value Reference Range Interpretation Comments Lymphocytes # (test code = Lymphocytes 2.4 1.0-5.5 #) [facility] PasoWmrerehKHVGCSDAEE5108-19-10 10:11:18 Test Item Value Reference Range Interpretation Comments Monocytes # (test code 0.8 See_Comment [Aut omated message] The = Monocytes #) system which generated this result tra nsmitted reference range : <=0.8. The reference r lily was not used to int erpret this result as normal/abnormal . [facility] PasoUreioeqOOCMCUUZUL5408-98-60 10:11:18 Test Item Value Reference Range Interpretation Comments Basophils (test code = 0.8 See_Comment [Aut omated message] The Basophils) system which ge nerated this result tra nsmitted reference range : <=1.0. The reference r lily was not used to int erpret this result as normal/abnormal . [facility] PasoElgfzxwBPZAUAFEUO7948-77-18 10:11:18 Test Item Value Reference Range Interpretation Comments Segs-Bands # (test code = Segs-Bands #) 6.6 1.5-8.1 [facility]2016-07-16 10:11:18 Test Item Value Reference Range Interpretation Comments Lactic Acid WB (test code = Lactic Acid 1.3 0.5-2.2 WB) [facility] HospitalPmzklhnNMXRBPKHZNGR6745-89-52 10:11:18 Test Item Value Reference Range Interpretation Comments AGAP (test code = AGAP) 11.5 10.0-20.0 [facility] HospitalWjwufmnIBPQLADSXSAB1287-42-27 10:11:18 Test Item Value Reference Range Interpretation Comments eGFR (test code = eGFR) 87 [facility] HospitalKhschnxIIHLKMTZCZIP8901-95-60 10:11:18 Test Item Value Reference Range Interpretation Comments Glucose Lvl (test code = Glucose Lvl) 125 70-99 [facility] HospitalYmndcuxYHEPCBZKRKDN7956-31-50 10:11:18 Test Item Value Reference Range Interpretation Comments BUN (test code = BUN) 16 7-22 [facility] HospitalOjipfmkXQBOXGCNWNLL1600-73-06 10:11:18 Test Item Value Reference Range Interpretation Comments Creatinine Lvl (test code = Creatinine 0.74 0.50-1.40 Lvl) [facility] HospitalJxygftmCFGDFJLXQPGP3294-04-40 10:11:18 Test Item Value Reference Range Interpretation Comments Potassium Lvl (test code = Potassium 3.5 3.5-5.1 Lvl) [facility] HospitalOwajvysYQRHQFBXFEAE1709-00-36 10:11:18 Test Item Value Reference Range Interpretation Comments Chloride Lvl (test code = Chloride Lvl) 104 95-109 [facility] HospitalNxultszFNQFNKRPMFVQ0749-65-45 10:11:18 Test Item Value Reference Range Interpretation Comments Sodium Lvl (test code = Sodium Lvl) 141 135-145 [facility] HospitalBpvjshuYHWODQVINHFU0815-48-17 10:11:18 Test Item Value Reference Range Interpretation Comments CO2 (test code = CO2) 29 24-32 [facility] HospitalTearamcZNSYTJGVKOLG2531-23-19 10:11:18 Test Item Value Reference Range Interpretation Comments Calcium Lvl (test code = Calcium Lvl) 9.4 8.5-10.5 [facility] PasoRctxrudRLCBUIYBXE7559-41-28 10:11:18 Test Item Value Reference Range Interpretation Comments Estimated % Lysis Rapid 1.2 See_Comment [Au tomated message] The (test code = Estimated syste m which generated % Lysis Rapid) this result t ransmitted reference range : <=7.5. The reference r lily was not used to int erpret this result as normal/abnormal . [facility] PasoZbilwlxAYJQRLTNGS3869-46-02 10:11:18 Test Item Value Reference Range Interpretation Comments K-time Rapid (test code = K-time 0.8 min 0.6-2.3 Rapid) [facility] PasoUzihuxcYLXOCAUXIY9525-37-03 10:11:18 Test Item Value Reference Range Interpretation Comments Split Point Rapid (test code = Split 0.4 min Point Rapid) [facility] PasoJgntktpBLGRKNNWNC8364-32-31 10:11:18 Test Item Value Reference Range Interpretation Comments ACT (TEG) Rapid (test code = ACT (TEG) 97 s 86-118 Rapid) [facility] PasoMexuzgkNBSQVPNTXY6525-90-82 10:11:18 Test Item Value Reference Range Interpretation Comments R-time Rapid (test code = R-time 0.5 min 0.4-0.7 Rapid) [facility] PasoJsyqoqdPREUSUGFKD0899-60-76 10:11:18 Test Item Value Reference Range Interpretation Comments G-value Rapid (test code = G-value 12.5 5.0-11.6 Rapid) [facility] PasoRewjqkbHHMWWSQVTX7993-75-82 10:11:18 Test Item Value Reference Range Interpretation Comments Max Amplitude Rapid (test code = Max 72 mm 52-71 Amplitude Rapid) [facility] PasoBcehnxqLZHMAEZUYX7057-19-25 10:11:18 Test Item Value Reference Range Interpretation Comments Angle Rapid (test code = Angle 79 degrees 64-80 Rapid) [facility] PasoUilbajgDNTJKBHZMA7337-92-26 10:11:18 Test Item Value Reference Range Interpretation Comments INR (test code = INR) 0.98 0.85-1.17 [facility] PasoThkelayTYBKUFPNNJ4545-54-53 10:11:18 Test Item Value Reference Range Interpretation Comments PT (test code = PT) 13.3 s 12.0-14.7 [facility] PasoSmtjwbuPRJWTXZTUH7517-86-75 10:11:18 Test Item Value Reference Range Interpretation Comments MPV (test code = MPV) 10.4 7.4-10.4 [facility] PasoRxiuftqYXTKWRPLQF6298-14-22 10:11:18 Test Item Value Reference Range Interpretation Comments Platelet (test code = Platelet) 178 133-450 [facility] PasoYugcpxlJSNGWSGZHL0804-48-82 10:11:18 Test Item Value Reference Range Interpretation Comments RDW (test code = RDW) 13.2 11.5-14.5 [facility] PasoDsxhjopNXNDAJJNID8862-54-65 10:11:18 Test Item Value Reference Range Interpretation Comments MCH (test code = MCH) 30.4 pg 27.0-31.0 [facility] PasoVjkhfvqLRAVREPUDW8421-62-81 10:11:18 Test Item Value Reference Range Interpretation Comments MCHC (test code = MCHC) 33.7 32.0-36.0 [facility] PasoJlotluwJKNFZBOILI6198-34-49 10:11:18 Test Item Value Reference Range Interpretation Comments Hgb (test code = Hgb) 12.2 12.0-16.0 [facility] PasoPtlxmshRZTDHZHRFT4742-59-97 10:11:18 Test Item Value Reference Range Interpretation Comments MCV (test code = MCV) 90.1 80.0-98.0 [facility] PasoTfmrooyEVDKMJWVJM1632-55-70 10:11:18 Test Item Value Reference Range Interpretation Comments Hct (test code = Hct) 36.2 36.0-48.0 [facility] PasoYptugnfCVUZUPOLJZ1240-90-41 10:11:18 Test Item Value Reference Range Interpretation Comments RBC (test code = RBC) 4.02 4.20-5.40 [facility] PasoIjlhhyiQKGFOTHZEC3513-33-53 10:11:18 Test Item Value Reference Range Interpretation Comments WBC (test code = WBC) 10.1 3.7-10.4 [facility] PasoOkndziaUPZUWEREPE0595 10:11:18 Test Item Value Reference Range Interpretation Comments PTT (test code = PTT) 35.5 s 22.9-35.8 [facility] PasoRlkkmuvVZMELTSTHX0992-75-43 10:11:18 Test Item Value Reference Range Interpretation Comments Eosinophils # (test code 0.2 See_Comment [A utomated message] The = Eosinophils #) system whic h generated this result tra nsmitted reference range : <=0.5. The reference r lily was not used to int erpret this result as normal/abnormal . [facility] PasoJlwwejmYYAUSBBQJE5396-43-23 10:11:18 Test Item Value Reference Range Interpretation Comments Monocytes (test code = Monocytes) 7.9 2.0-12.0 [facility] PasoVarkviiHLWSLPHMKT9054-08-27 10:11:18 Test Item Value Reference Range Interpretation Comments Eosinophils (test code = 2.5 See_Comment [A utomated message] The Eosinophils) system which ge nerated this result tra nsmitted reference range : <=4.0. The reference r lily was not used to int erpret this result as normal/abnormal . [facility] PasoUybogxkBSUETAKKVU3578-64-75 10:11:18 Test Item Value Reference Range Interpretation Comments Basophils # (test code 0.1 See_Comment [Aut omated message] The = Basophils #) system which generated this result tra nsmitted reference range : <=0.2. The reference r lily was not used to int erpret this result as normal/abnormal . [facility] PasoUriosknINNECIKOED1310-33-69 10:11:18 Test Item Value Reference Range Interpretation Comments Segs (test code = Segs) 65.1 45.0-75.0 [facility] PasoVtwpybiKBTCBUZRYD1688-61-34 10:11:18 Test Item Value Reference Range Interpretation Comments Lymphocytes (test code = Lymphocytes) 23.7 20.0-40.0 [facility] PasoVajllkyYEIRQFJYAG7738-18-33 10:11:18 Test Item Value Reference Range Interpretation Comments Lymphocytes # (test code = Lymphocytes 2.4 1.0-5.5 #) [facility] PasoXmgujyjYZIJIGFUXE4447-70-39 10:11:18 Test Item Value Reference Range Interpretation Comments Monocytes # (test code 0.8 See_Comment [Aut omated message] The = Monocytes #) system which generated this result tra nsmitted reference range : <=0.8. The reference r lily was not used to int erpret this result as normal/abnormal . [facility] PasoEymhpxyPPWHLDPIUQ6483-88-92 10:11:18 Test Item Value Reference Range Interpretation Comments Basophils (test code = 0.8 See_Comment [Aut omated message] The Basophils) system which ge nerated this result tra nsmitted reference range : <=1.0. The reference r lily was not used to int erpret this result as normal/abnormal . [facility] PasoGkudqqnUDUVQMTOFW8402-05-09 10:11:18 Test Item Value Reference Range Interpretation Comments Segs-Bands # (test code = Segs-Bands #) 6.6 1.5-8.1 [facility]2016-07-16 10:11:18 Test Item Value Reference Range Interpretation Comments Lactic Acid WB (test code = Lactic Acid 1.3 0.5-2.2 WB) [facility]XvmphhyYCNBGXSQNIYR8669-41-30 10:11:18 Test Item Value Reference Range Interpretation Comments AGAP (test code = AGAP) 11.5 10.0-20.0 [facility] HospitalTnbkkooXSHITLOFQTCA0555-97-84 10:11:18 Test Item Value Reference Range Interpretation Comments eGFR (test code = eGFR) 87 [facility] HospitalUrveubmZTNFWTVJCNPD6383-61-62 10:11:18 Test Item Value Reference Range Interpretation Comments Glucose Lvl (test code = Glucose Lvl) 125 70-99 [facility] HospitalXvydwdfIECRITXQQAKC3881-21-96 10:11:18 Test Item Value Reference Range Interpretation Comments BUN (test code = BUN) 16 7-22 [facility] HospitalLbhgotrEVGXAYLTOBPW9662-87-25 10:11:18 Test Item Value Reference Range Interpretation Comments Creatinine Lvl (test code = Creatinine 0.74 0.50-1.40 Lvl) [facility] HospitalNftfvjtANPTMDBAIMCR2046-63-04 10:11:18 Test Item Value Reference Range Interpretation Comments Potassium Lvl (test code = Potassium 3.5 3.5-5.1 Lvl) [facility] HospitalRuexnakPNKSHHSHHTCP8069-14-92 10:11:18 Test Item Value Reference Range Interpretation Comments Chloride Lvl (test code = Chloride Lvl) 104 95-109 [facility] HospitalOwbzwolOXWULKBBZNWR5547-41-18 10:11:18 Test Item Value Reference Range Interpretation Comments Sodium Lvl (test code = Sodium Lvl) 141 135-145 [facility] HospitalTpnigruSFWTDDXCXBHK0894-99-20 10:11:18 Test Item Value Reference Range Interpretation Comments CO2 (test code = CO2) 29 24-32 [facility] HospitalFsqptgaCNIAITUNDWCA9374-52-57 10:11:18 Test Item Value Reference Range Interpretation Comments Calcium Lvl (test code = Calcium Lvl) 9.4 8.5-10.5 [facility]oSrgcshvAZVSIXFASJ3777-10-95 10:11:18 Test Item Value Reference Range Interpretation Comments Estimated % Lysis Rapid 1.2 See_Comment [Au tomated message] The (test code = Estimated syste m which generated % Lysis Rapid) this result t ransmitted reference range : <=7.5. The reference r lily was not used to int erpret this result as normal/abnormal . [facility] PasoXhpelrwTWWALUFZFK4684-93-47 10:11:18 Test Item Value Reference Range Interpretation Comments K-time Rapid (test code = K-time 0.8 min 0.6-2.3 Rapid) [facility] PasoRtfiehzKXQMPOYFXM6196-38-20 10:11:18 Test Item Value Reference Range Interpretation Comments Split Point Rapid (test code = Split 0.4 min Point Rapid) [facility] PasoRcjxeciSJQIGUFFUQ8605-73-74 10:11:18 Test Item Value Reference Range Interpretation Comments ACT (TEG) Rapid (test code = ACT (TEG) 97 s 86-118 Rapid) [facility] PasoNlzstdjJYQIEEAXQZ3050-50-08 10:11:18 Test Item Value Reference Range Interpretation Comments R-time Rapid (test code = R-time 0.5 min 0.4-0.7 Rapid) [facility] PasoCtjbuczRMRSHQPGQQ9405-82-15 10:11:18 Test Item Value Reference Range Interpretation Comments G-value Rapid (test code = G-value 12.5 5.0-11.6 Rapid) [facility] PasoEitperfVXSBUNOKNU5007-04-33 10:11:18 Test Item Value Reference Range Interpretation Comments Max Amplitude Rapid (test code = Max 72 mm 52-71 Amplitude Rapid) [facility] PasoLgrnjieKEHVEBYMCG1667-88-75 10:11:18 Test Item Value Reference Range Interpretation Comments Angle Rapid (test code = Angle 79 degrees 64-80 Rapid) [facility] PasoBfythxwBWPEXRZRPY3472-44-57 10:11:18 Test Item Value Reference Range Interpretation Comments INR (test code = INR) 0.98 0.85-1.17 [facility] PasoYaodaulHKUMLPEYXR3617-41-92 10:11:18 Test Item Value Reference Range Interpretation Comments PT (test code = PT) 13.3 s 12.0-14.7 [facility] PasoTphzipsRILQDWIJQG5277-75-77 10:11:18 Test Item Value Reference Range Interpretation Comments MPV (test code = MPV) 10.4 7.4-10.4 [facility] PasoFmpvpbeXIJDENBZOE8764-12-67 10:11:18 Test Item Value Reference Range Interpretation Comments Platelet (test code = Platelet) 178 133-450 [facility] PasoHaekyraRXQKDPGRMP6859-90-70 10:11:18 Test Item Value Reference Range Interpretation Comments RDW (test code = RDW) 13.2 11.5-14.5 [facility] PasoJikjaqpOSCFCAPQJY5434-10-16 10:11:18 Test Item Value Reference Range Interpretation Comments MCH (test code = MCH) 30.4 pg 27.0-31.0 [facility] PasoYzjwejoSIBELRMMKA0141-70-50 10:11:18 Test Item Value Reference Range Interpretation Comments MCHC (test code = MCHC) 33.7 32.0-36.0 [facility] PasoCzzjbnjPMZVZPBHFA0864-17-43 10:11:18 Test Item Value Reference Range Interpretation Comments Hgb (test code = Hgb) 12.2 12.0-16.0 [facility] PasoUkmuhavTOBQYJTHNI0981-78-78 10:11:18 Test Item Value Reference Range Interpretation Comments MCV (test code = MCV) 90.1 80.0-98.0 [facility] PasoCofoucwAAGGHJTDCG7818-89-85 10:11:18 Test Item Value Reference Range Interpretation Comments Hct (test code = Hct) 36.2 36.0-48.0 [facility] PasoVningciFFLXMKKCZS9955-19-40 10:11:18 Test Item Value Reference Range Interpretation Comments RBC (test code = RBC) 4.02 4.20-5.40 [facility] PasoLcxcahvSWXDKYKJQK2449-32-76 10:11:18 Test Item Value Reference Range Interpretation Comments WBC (test code = WBC) 10.1 3.7-10.4 [facility] PasoRcgbngdTBUMRBTWXS9102-25-67 10:11:18 Test Item Value Reference Range Interpretation Comments PTT (test code = PTT) 35.5 s 22.9-35.8 [facility] PasoLxeezmrANMSIZKXBS5565-34-77 10:11:18 Test Item Value Reference Range Interpretation Comments Eosinophils # (test code 0.2 See_Comment [A utomated message] The = Eosinophils #) system whic h generated this result tra nsmitted reference range : <=0.5. The reference r lily was not used to int erpret this result as normal/abnormal . [facility] PasoFscrhuaDABZCSPAYX6601-52-16 10:11:18 Test Item Value Reference Range Interpretation Comments Monocytes (test code = Monocytes) 7.9 2.0-12.0 [facility] PasoFzbdvhsTOEAZPCRRL9249-49-15 10:11:18 Test Item Value Reference Range Interpretation Comments Eosinophils (test code = 2.5 See_Comment [A utomated message] The Eosinophils) system which ge nerated this result tra nsmitted reference range : <=4.0. The reference r lily was not used to int erpret this result as normal/abnormal . [facility] PasoBrsgxmmPACEUOMFIQ6074-64-54 10:11:18 Test Item Value Reference Range Interpretation Comments Basophils # (test code 0.1 See_Comment [Aut omated message] The = Basophils #) system which generated this result tra nsmitted reference range : <=0.2. The reference r lily was not used to int erpret this result as normal/abnormal . [facility] PasoMenbpmnEMKSBMFUNV1187-32-21 10:11:18 Test Item Value Reference Range Interpretation Comments Segs (test code = Segs) 65.1 45.0-75.0 [facility] PasoLkypdamCPVVGKFVLP4939-42-74 10:11:18 Test Item Value Reference Range Interpretation Comments Lymphocytes (test code = Lymphocytes) 23.7 20.0-40.0 [facility] PasoWouuulvDJXPVRORVW2087-34-38 10:11:18 Test Item Value Reference Range Interpretation Comments Lymphocytes # (test code = Lymphocytes 2.4 1.0-5.5 #) [facility] PasoEcawmidRIQSCCNHLW5410-06-11 10:11:18 Test Item Value Reference Range Interpretation Comments Monocytes # (test code 0.8 See_Comment [Aut omated message] The = Monocytes #) system which generated this result tra nsmitted reference range : <=0.8. The reference r lily was not used to int erpret this result as normal/abnormal . [facility] PasoIbyvcbvUAQQNWWLJT8576-85-08 10:11:18 Test Item Value Reference Range Interpretation Comments Basophils (test code = 0.8 See_Comment [Aut omated message] The Basophils) system which ge nerated this result tra nsmitted reference range : <=1.0. The reference r lily was not used to int erpret this result as normal/abnormal . [facility] PasoOzomfceGERIWSTNQG3597-79-47 10:11:18 Test Item Value Reference Range Interpretation Comments Segs-Bands # (test code = Segs-Bands #) 6.6 1.5-8.1 [facility]2016-07-16 10:11:18 Test Item Value Reference Range Interpretation Comments Lactic Acid WB (test code = Lactic Acid 1.3 0.5-2.2 WB) [facility] HospitalBxjpjitQXEFJPIXAVHS5523-32-22 10:11:18 Test Item Value Reference Range Interpretation Comments AGAP (test code = AGAP) 11.5 10.0-20.0 [facility] HospitalXqtqxptEZXRKDJUCAQK1506-31-01 10:11:18 Test Item Value Reference Range Interpretation Comments eGFR (test code = eGFR) 87 [facility] HospitalIdztfidJBFZVBRWCQTW7939-28-27 10:11:18 Test Item Value Reference Range Interpretation Comments Glucose Lvl (test code = Glucose Lvl) 125 70-99 [facility] HospitalQnatscpXNOLRTTGMJMA3210-23-78 10:11:18 Test Item Value Reference Range Interpretation Comments BUN (test code = BUN) 16 7-22 [facility] HospitalXzdrafeHBSAELRCJFYB0352-23-08 10:11:18 Test Item Value Reference Range Interpretation Comments Creatinine Lvl (test code = Creatinine 0.74 0.50-1.40 Lvl) [facility] HospitalDquyjlpMMNYKPNXEQAB8689-46-71 10:11:18 Test Item Value Reference Range Interpretation Comments Potassium Lvl (test code = Potassium 3.5 3.5-5.1 Lvl) [facility] HospitalJtbiuhiVZWSBGDUZLCX5545-10-11 10:11:18 Test Item Value Reference Range Interpretation Comments Chloride Lvl (test code = Chloride Lvl) 104 95-109 [facility] HospitalAskpzkuDKMYOFGAGALS3564-91-35 10:11:18 Test Item Value Reference Range Interpretation Comments Sodium Lvl (test code = Sodium Lvl) 141 135-145 [facility] HospitalMosjvgjHWYCXPNBZBMI7143-03-76 10:11:18 Test Item Value Reference Range Interpretation Comments CO2 (test code = CO2) 29 24-32 [facility] HospitalKxsgvizZBYJWGWEMAOV1693-52-52 10:11:18 Test Item Value Reference Range Interpretation Comments Calcium Lvl (test code = Calcium Lvl) 9.4 8.5-10.5 [facility] PasoIjxsfqvCWHLYVMIBW8546-00-53 10:11:18 Test Item Value Reference Range Interpretation Comments Estimated % Lysis Rapid 1.2 See_Comment [Au tomated message] The (test code = Estimated syste m which generated % Lysis Rapid) this result t ransmitted reference range : <=7.5. The reference r lily was not used to int erpret this result as normal/abnormal . [facility] PasoFhsxmjhJMYHTOUEPY1408-47-64 10:11:18 Test Item Value Reference Range Interpretation Comments K-time Rapid (test code = K-time 0.8 min 0.6-2.3 Rapid) [facility] PasoBbpubyrCARSCTXHQF2425-85-06 10:11:18 Test Item Value Reference Range Interpretation Comments Split Point Rapid (test code = Split 0.4 min Point Rapid) [facility] PasoWrhbcbcRHBWBXAXNM8532-13-56 10:11:18 Test Item Value Reference Range Interpretation Comments ACT (TEG) Rapid (test code = ACT (TEG) 97 s 86-118 Rapid) [facility] PasoZufnxdvTBJEYOWXUQ5751-59-59 10:11:18 Test Item Value Reference Range Interpretation Comments R-time Rapid (test code = R-time 0.5 min 0.4-0.7 Rapid) [facility] PasoHlubbopVDHYPGXHNZ0139-76-23 10:11:18 Test Item Value Reference Range Interpretation Comments G-value Rapid (test code = G-value 12.5 5.0-11.6 Rapid) [facility] PasoViyvgtlKPWXFUGXDJ3095-16-80 10:11:18 Test Item Value Reference Range Interpretation Comments Max Amplitude Rapid (test code = Max 72 mm 52-71 Amplitude Rapid) [facility] PasoFaapgzlCNRATTYNCC4772-26-80 10:11:18 Test Item Value Reference Range Interpretation Comments Angle Rapid (test code = Angle 79 degrees 64-80 Rapid) [facility] PasoOevscepKWYCIZBVRO0738-16-82 10:11:18 Test Item Value Reference Range Interpretation Comments INR (test code = INR) 0.98 0.85-1.17 [facility] PasoAusnhutGUFNYEIFCW3738-57-99 10:11:18 Test Item Value Reference Range Interpretation Comments PT (test code = PT) 13.3 s 12.0-14.7 [facility] PasoQcpmerrLSRBNRWSDY5434-19-14 10:11:18 Test Item Value Reference Range Interpretation Comments MPV (test code = MPV) 10.4 7.4-10.4 [facility] PasoLkzybhhLSCTSVTVNX7308-80-30 10:11:18 Test Item Value Reference Range Interpretation Comments Platelet (test code = Platelet) 178 133-450 [facility] PasoFghfpvqELDPCLHZTN8318-81-25 10:11:18 Test Item Value Reference Range Interpretation Comments RDW (test code = RDW) 13.2 11.5-14.5 [facility] PasoZwdykszYZHQRMUHHC5103-97-33 10:11:18 Test Item Value Reference Range Interpretation Comments MCH (test code = MCH) 30.4 pg 27.0-31.0 [facility] PasoDjwxcziGVJVHBCAGS9399-02-38 10:11:18 Test Item Value Reference Range Interpretation Comments MCHC (test code = MCHC) 33.7 32.0-36.0 [facility] PasoJllbzcqJRGHSXLEKG5089-50-91 10:11:18 Test Item Value Reference Range Interpretation Comments Hgb (test code = Hgb) 12.2 12.0-16.0 [facility] PasoItcvsouKWFKLSFNMM3796-69-06 10:11:18 Test Item Value Reference Range Interpretation Comments MCV (test code = MCV) 90.1 80.0-98.0 [facility] PasoWcclwkpTLTWLCOYRN1528-46-65 10:11:18 Test Item Value Reference Range Interpretation Comments Hct (test code = Hct) 36.2 36.0-48.0 [facility] PasoBjkvrvuWDIRPHQYCZ6975-18-98 10:11:18 Test Item Value Reference Range Interpretation Comments RBC (test code = RBC) 4.02 4.20-5.40 [facility] PasoVdjphidPZOGQWMSSZ1005-45-40 10:11:18 Test Item Value Reference Range Interpretation Comments WBC (test code = WBC) 10.1 3.7-10.4 [facility] PasoSrkqrfvXTQCUFTJHR8208-42-84 10:11:18 Test Item Value Reference Range Interpretation Comments PTT (test code = PTT) 35.5 s 22.9-35.8 [facility] PasoDqhhrebQSRGSKCDVY7533-14-19 10:11:18 Test Item Value Reference Range Interpretation Comments Eosinophils # (test code 0.2 See_Comment [A utomated message] The = Eosinophils #) system whic h generated this result tra nsmitted reference range : <=0.5. The reference r lily was not used to int erpret this result as normal/abnormal . [facility] PasoFnrjemkYMTIGBXGCD9210-90-44 10:11:18 Test Item Value Reference Range Interpretation Comments Monocytes (test code = Monocytes) 7.9 2.0-12.0 [facility] PasoCgqvuckJFFBVEHNOI4001-35-41 10:11:18 Test Item Value Reference Range Interpretation Comments Eosinophils (test code = 2.5 See_Comment [A utomated message] The Eosinophils) system which ge nerated this result tra nsmitted reference range : <=4.0. The reference r lily was not used to int erpret this result as normal/abnormal . [facility] PasoSrohxhaELCTYGSBAN2411-84-85 10:11:18 Test Item Value Reference Range Interpretation Comments Basophils # (test code 0.1 See_Comment [Aut omated message] The = Basophils #) system which generated this result tra nsmitted reference range : <=0.2. The reference r lily was not used to int erpret this result as normal/abnormal . [facility] PasoFyoebnkLMHCKCWJSK4226-39-72 10:11:18 Test Item Value Reference Range Interpretation Comments Segs (test code = Segs) 65.1 45.0-75.0 [facility] PasoDadrrhvMDNRGNFLQF0846-75-29 10:11:18 Test Item Value Reference Range Interpretation Comments Lymphocytes (test code = Lymphocytes) 23.7 20.0-40.0 [facility] PasoUqatyocTLACULEQKX7816-96-18 10:11:18 Test Item Value Reference Range Interpretation Comments Lymphocytes # (test code = Lymphocytes 2.4 1.0-5.5 #) [facility] PasoXepsfocUSAQSXWVBG3349-37-61 10:11:18 Test Item Value Reference Range Interpretation Comments Monocytes # (test code 0.8 See_Comment [Aut omated message] The = Monocytes #) system which generated this result tra nsmitted reference range : <=0.8. The reference r lily was not used to int erpret this result as normal/abnormal . [facility] PasoGmdclrmCXAYFPOPSX1950-66-63 10:11:18 Test Item Value Reference Range Interpretation Comments Basophils (test code = 0.8 See_Comment [Aut omated message] The Basophils) system which ge nerated this result tra nsmitted reference range : <=1.0. The reference r lily was not used to int erpret this result as normal/abnormal . [facility] PasoWpryxusPUAPOIWACC0200-06-08 10:11:18 Test Item Value Reference Range Interpretation Comments Segs-Bands # (test code = Segs-Bands #) 6.6 1.5-8.1 [facility]2016-07-16 10:11:18 Test Item Value Reference Range Interpretation Comments Lactic Acid WB (test code = Lactic Acid 1.3 0.5-2.2 WB) [facility] HospitalLejatzhHLMPZJGOXABY3997-90-30 10:11:18 Test Item Value Reference Range Interpretation Comments AGAP (test code = AGAP) 11.5 10.0-20.0 [facility] HospitalMuwptguPMWVOXCOIUOH6755-34-04 10:11:18 Test Item Value Reference Range Interpretation Comments eGFR (test code = eGFR) 87 [facility] HospitalKpkdvvsAJPKWOZVNEMT8903-16-86 10:11:18 Test Item Value Reference Range Interpretation Comments Glucose Lvl (test code = Glucose Lvl) 125 70-99 [facility] HospitalRrvzynzURULYXFMTZWL6667-30-64 10:11:18 Test Item Value Reference Range Interpretation Comments BUN (test code = BUN) 16 7-22 [facility] HospitalOagxlwiLRJFCDNFIHJT8541-83-37 10:11:18 Test Item Value Reference Range Interpretation Comments Creatinine Lvl (test code = Creatinine 0.74 0.50-1.40 Lvl) [facility] HospitalTzfondsTUAMWPWICWYZ6636-24-24 10:11:18 Test Item Value Reference Range Interpretation Comments Potassium Lvl (test code = Potassium 3.5 3.5-5.1 Lvl) [facility] HospitalGfffzlsKRGNCGJOSBCN6444-14-49 10:11:18 Test Item Value Reference Range Interpretation Comments Chloride Lvl (test code = Chloride Lvl) 104 95-109 [facility] HospitalOgmlzdiPAQDFTLYAWHG2219-01-69 10:11:18 Test Item Value Reference Range Interpretation Comments Sodium Lvl (test code = Sodium Lvl) 141 135-145 [facility] HospitalYekmioqNLHXYMUFCRBO0042-53-26 10:11:18 Test Item Value Reference Range Interpretation Comments CO2 (test code = CO2) 29 24-32 [facility]XocgswxHWCJRLCQRVUJ1172-00-12 10:11:18 Test Item Value Reference Range Interpretation Comments Calcium Lvl (test code = Calcium Lvl) 9.4 8.5-10.5 [facility]PxbcbziPSJFUVICJY1723-00-85 10:11:18 Test Item Value Reference Range Interpretation Comments Estimated % Lysis Rapid 1.2 See_Comment [Au tomated message] The (test code = Estimated syste m which generated % Lysis Rapid) this result t ransmitted reference range : <=7.5. The reference r lily was not used to int erpret this result as normal/abnormal . [facility] PasoMqlcclhJHMFYDGRNZ1805-65-10 10:11:18 Test Item Value Reference Range Interpretation Comments K-time Rapid (test code = K-time 0.8 min 0.6-2.3 Rapid) [facility]XguvwhlMXASJJMAOT9043-47-16 10:11:18 Test Item Value Reference Range Interpretation Comments Split Point Rapid (test code = Split 0.4 min Point Rapid) [facility] PasoZxdgdfaVOZBLLQJJC6950-75-03 10:11:18 Test Item Value Reference Range Interpretation Comments ACT (TEG) Rapid (test code = ACT (TEG) 97 s 86-118 Rapid) [facility]oLgxmmtdCLSDMTWNJQ8726-38-25 10:11:18 Test Item Value Reference Range Interpretation Comments R-time Rapid (test code = R-time 0.5 min 0.4-0.7 Rapid) [facility] PasoEmlwkauNCHQPMSLNI8263-63-14 10:11:18 Test Item Value Reference Range Interpretation Comments G-value Rapid (test code = G-value 12.5 5.0-11.6 Rapid) [facility] PasoZucoihdRHIJCRGHOY0064-92-40 10:11:18 Test Item Value Reference Range Interpretation Comments Max Amplitude Rapid (test code = Max 72 mm 52-71 Amplitude Rapid) [facility] PasoAyqolbtTTREQRYPHM1647-89-66 10:11:18 Test Item Value Reference Range Interpretation Comments Angle Rapid (test code = Angle 79 degrees 64-80 Rapid) [facility] PasoErhwvlqJYQNAIFKZK5026-50-77 10:11:18 Test Item Value Reference Range Interpretation Comments INR (test code = INR) 0.98 0.85-1.17 [facility] PasoIbvegboSAKQLRQUAU6490-09-13 10:11:18 Test Item Value Reference Range Interpretation Comments PT (test code = PT) 13.3 s 12.0-14.7 [facility] PasoPkwcysqEYHEXEGXNO4533-82-99 10:11:18 Test Item Value Reference Range Interpretation Comments MPV (test code = MPV) 10.4 7.4-10.4 [facility] PasoBfkypqzQDAACZSHKB4439-03-11 10:11:18 Test Item Value Reference Range Interpretation Comments Platelet (test code = Platelet) 178 133-450 [facility] PasoDilasahRCCHJRCCGN7584-96-09 10:11:18 Test Item Value Reference Range Interpretation Comments RDW (test code = RDW) 13.2 11.5-14.5 [facility] PasoKbwcmbeHSGMNUKMSV7564-45-29 10:11:18 Test Item Value Reference Range Interpretation Comments MCH (test code = MCH) 30.4 pg 27.0-31.0 [facility] PasoXailtmnFMJRQAOXVS4367-22-65 10:11:18 Test Item Value Reference Range Interpretation Comments MCHC (test code = MCHC) 33.7 32.0-36.0 [facility] PasoZwprvpeSMIFBSQWWS8123-33-14 10:11:18 Test Item Value Reference Range Interpretation Comments Hgb (test code = Hgb) 12.2 12.0-16.0 [facility] PasoIqlofxmAHETQPRWTX8699-52-64 10:11:18 Test Item Value Reference Range Interpretation Comments MCV (test code = MCV) 90.1 80.0-98.0 [facility] PasoSrqmkjrZSKENVNFAK9330-07-33 10:11:18 Test Item Value Reference Range Interpretation Comments Hct (test code = Hct) 36.2 36.0-48.0 [facility] PasoDpwvwpwQEWWKWEGOR8488-04-78 10:11:18 Test Item Value Reference Range Interpretation Comments RBC (test code = RBC) 4.02 4.20-5.40 [facility] PasoEvufulyUHEALORPLM3749-47-75 10:11:18 Test Item Value Reference Range Interpretation Comments WBC (test code = WBC) 10.1 3.7-10.4 [facility] PasoFetwkloRIUNKSGWDE3903-31-44 10:11:18 Test Item Value Reference Range Interpretation Comments PTT (test code = PTT) 35.5 s 22.9-35.8 [facility] PasoPoowmmhOBXZKNMZXY8653-81-06 10:11:18 Test Item Value Reference Range Interpretation Comments Eosinophils # (test code 0.2 See_Comment [A utomated message] The = Eosinophils #) system whic h generated this result tra nsmitted reference range : <=0.5. The reference r lily was not used to int erpret this result as normal/abnormal . [facility] PasoHzzcjcnJTPFMRPSZT2908-06-46 10:11:18 Test Item Value Reference Range Interpretation Comments Monocytes (test code = Monocytes) 7.9 2.0-12.0 [facility] PasoQewvckiAHAEMSMJSG6432-33-20 10:11:18 Test Item Value Reference Range Interpretation Comments Eosinophils (test code = 2.5 See_Comment [A utomated message] The Eosinophils) system which ge nerated this result tra nsmitted reference range : <=4.0. The reference r lily was not used to int erpret this result as normal/abnormal . [facility] PasoUvssvnvGSNRAWYLUD7637-71-87 10:11:18 Test Item Value Reference Range Interpretation Comments Basophils # (test code 0.1 See_Comment [Aut omated message] The = Basophils #) system which generated this result tra nsmitted reference range : <=0.2. The reference r lily was not used to int erpret this result as normal/abnormal . [facility] PasoTuvpcuePQLKCBFHUA4577-65-27 10:11:18 Test Item Value Reference Range Interpretation Comments Segs (test code = Segs) 65.1 45.0-75.0 [facility] PasoPtbotymSRAGLUZYTY8388-34-74 10:11:18 Test Item Value Reference Range Interpretation Comments Lymphocytes (test code = Lymphocytes) 23.7 20.0-40.0 [facility] PasoWlctswtGAHNHKZTWD1540-65-75 10:11:18 Test Item Value Reference Range Interpretation Comments Lymphocytes # (test code = Lymphocytes 2.4 1.0-5.5 #) [facility] PasoSoigvfkBAGNVUMFEN7359-17-56 10:11:18 Test Item Value Reference Range Interpretation Comments Monocytes # (test code 0.8 See_Comment [Aut omated message] The = Monocytes #) system which generated this result tra nsmitted reference range : <=0.8. The reference r lily was not used to int erpret this result as normal/abnormal . [facility] PasoRpalkafOOBYQTSHAZ2500-30-82 10:11:18 Test Item Value Reference Range Interpretation Comments Basophils (test code = 0.8 See_Comment [Aut omated message] The Basophils) system which ge nerated this result tra nsmitted reference range : <=1.0. The reference r lily was not used to int erpret this result as normal/abnormal . [facility] PasoMbwmwelVDZNKWXSJC1362-39-76 10:11:18 Test Item Value Reference Range Interpretation Comments Segs-Bands # (test code = Segs-Bands #) 6.6 1.5-8.1 [facility]2016-07-16 10:11:18 Test Item Value Reference Range Interpretation Comments Lactic Acid WB (test code = Lactic Acid 1.3 0.5-2.2 WB) [facility] HospitalAlplyxbMMMPOSIHDNJY1512-88-61 10:11:18 Test Item Value Reference Range Interpretation Comments AGAP (test code = AGAP) 11.5 10.0-20.0 [facility] HospitalDgjebpwBRRZBEWLTKOH3556-95-44 10:11:18 Test Item Value Reference Range Interpretation Comments eGFR (test code = eGFR) 87 [facility] HospitalPslwgegXDLRBYTGSMBP1668-28-27 10:11:18 Test Item Value Reference Range Interpretation Comments Glucose Lvl (test code = Glucose Lvl) 125 70-99 [facility] HospitalVpujtxrJJNVIVPHPHWU3898-16-70 10:11:18 Test Item Value Reference Range Interpretation Comments BUN (test code = BUN) 16 7-22 [facility] HospitalPjczgrkYIGXIUXTBSZI5436-03-17 10:11:18 Test Item Value Reference Range Interpretation Comments Creatinine Lvl (test code = Creatinine 0.74 0.50-1.40 Lvl) [facility] HospitalZpbagmiKKKCTWUFCUPN3550-57-60 10:11:18 Test Item Value Reference Range Interpretation Comments Potassium Lvl (test code = Potassium 3.5 3.5-5.1 Lvl) [facility] HospitalUhmnyceTDGRRLTVRWBJ8720-94-89 10:11:18 Test Item Value Reference Range Interpretation Comments Chloride Lvl (test code = Chloride Lvl) 104 95-109 [facility] HospitalKodkrieFPDLBJCWQZAP3205-56-89 10:11:18 Test Item Value Reference Range Interpretation Comments Sodium Lvl (test code = Sodium Lvl) 141 135-145 [facility] HospitalKlykiyuBPTZFPPILHIG9643-00-77 10:11:18 Test Item Value Reference Range Interpretation Comments CO2 (test code = CO2) 29 24-32 [facility] HospitalEadtrbyPGNNSRNJUXCJ3265-77-56 10:11:18 Test Item Value Reference Range Interpretation Comments Calcium Lvl (test code = Calcium Lvl) 9.4 8.5-10.5 [facility] PasoUlfotslKGDJEGRMDS8911-93-28 10:11:18 Test Item Value Reference Range Interpretation Comments Estimated % Lysis Rapid 1.2 See_Comment [Au tomated message] The (test code = Estimated syste m which generated % Lysis Rapid) this result t ransmitted reference range : <=7.5. The reference r lily was not used to int erpret this result as normal/abnormal . [facility] PasoCngojwzLJEVYRNFZA6666-74-49 10:11:18 Test Item Value Reference Range Interpretation Comments K-time Rapid (test code = K-time 0.8 min 0.6-2.3 Rapid) [facility] PasoLkqdaswUFQNPAZKBJ9566-88-42 10:11:18 Test Item Value Reference Range Interpretation Comments Split Point Rapid (test code = Split 0.4 min Point Rapid) [facility] PasoXqtujfgWKEDWTDZGP7112-82-76 10:11:18 Test Item Value Reference Range Interpretation Comments ACT (TEG) Rapid (test code = ACT (TEG) 97 s 86-118 Rapid) [facility] PasoCmmhiknIMXXYJLCNR6790-51-17 10:11:18 Test Item Value Reference Range Interpretation Comments R-time Rapid (test code = R-time 0.5 min 0.4-0.7 Rapid) [facility]2016-07-16 10:11:18 Test Item Value Reference Range Interpretation Comments Lactic Acid WB (test code = Lactic Acid 1.3 0.5-2.2 WB) [facility] HospitalJhdupzmEDXJKZZKLGVH0436-14-56 10:11:18 Test Item Value Reference Range Interpretation Comments AGAP (test code = AGAP) 11.5 10.0-20.0 [facility] HospitalLdukljiVQHITACTBJZO5398-88-25 10:11:18 Test Item Value Reference Range Interpretation Comments eGFR (test code = eGFR) 87 [facility] HospitalAhvyueaIKHRGMAQRYRB6143-48-26 10:11:18 Test Item Value Reference Range Interpretation Comments Glucose Lvl (test code = Glucose Lvl) 125 70-99 [facility] HospitalPdwsiprFKHMKNUMXUMQ5382-50-58 10:11:18 Test Item Value Reference Range Interpretation Comments BUN (test code = BUN) 16 7-22 [facility] HospitalApzutrlHVOXOLMMHVTQ1388-89-12 10:11:18 Test Item Value Reference Range Interpretation Comments Creatinine Lvl (test code = Creatinine 0.74 0.50-1.40 Lvl) [facility] PasoWkpaivhNYSDLZFLCR6833-36-35 10:11:18 Test Item Value Reference Range Interpretation Comments G-value Rapid (test code = G-value 12.5 5.0-11.6 Rapid) [facility] HospitalWmvsxtwQQSTXXFFKSIG0545-42-82 10:11:18 Test Item Value Reference Range Interpretation Comments Potassium Lvl (test code = Potassium 3.5 3.5-5.1 Lvl) [facility] HospitalJqawrpxPOEKFRMNTBIO4240-15-74 10:11:18 Test Item Value Reference Range Interpretation Comments Chloride Lvl (test code = Chloride Lvl) 104 95-109 [facility] HospitalJeblvudGYDZTRSMFCFU3238-97-84 10:11:18 Test Item Value Reference Range Interpretation Comments Sodium Lvl (test code = Sodium Lvl) 141 135-145 [facility] HospitalDlnoqbaSOLEIZXJZOGC2991-39-09 10:11:18 Test Item Value Reference Range Interpretation Comments CO2 (test code = CO2) 29 24-32 [facility] HospitalEseonsfJPEZHDWWVYKP8979-93-29 10:11:18 Test Item Value Reference Range Interpretation Comments Calcium Lvl (test code = Calcium Lvl) 9.4 8.5-10.5 [facility] PasoMryqogvRPMCBGJFZO5426-22-17 10:11:18 Test Item Value Reference Range Interpretation Comments Estimated % Lysis Rapid 1.2 See_Comment [Au tomated message] The (test code = Estimated syste m which generated % Lysis Rapid) this result t ransmitted reference range : <=7.5. The reference r lily was not used to int erpret this result as normal/abnormal . [facility] PasoZipckwrBGKTYYZULF0797-95-96 10:11:18 Test Item Value Reference Range Interpretation Comments K-time Rapid (test code = K-time 0.8 min 0.6-2.3 Rapid) [facility] PasoBaptvemATTXGFKDGW3324-48-35 10:11:18 Test Item Value Reference Range Interpretation Comments Split Point Rapid (test code = Split 0.4 min Point Rapid) [facility] PasoFfrwqrwQYVXEHQLIY2014-33-21 10:11:18 Test Item Value Reference Range Interpretation Comments ACT (TEG) Rapid (test code = ACT (TEG) 97 s 86-118 Rapid) [facility] PasoUzqbapyJHELWKBMWQ4535-11-83 10:11:18 Test Item Value Reference Range Interpretation Comments R-time Rapid (test code = R-time 0.5 min 0.4-0.7 Rapid) [facility] PasoKhyyyllYWDJMDSAXA1935-30-05 10:11:18 Test Item Value Reference Range Interpretation Comments Max Amplitude Rapid (test code = Max 72 mm 52-71 Amplitude Rapid) [facility] PasoJxemzkhGBKNCANEVO3924-28-77 10:11:18 Test Item Value Reference Range Interpretation Comments G-value Rapid (test code = G-value 12.5 5.0-11.6 Rapid) [facility] PasoTkimwgxWHEGBEKXVR8031-49-02 10:11:18 Test Item Value Reference Range Interpretation Comments Max Amplitude Rapid (test code = Max 72 mm 52-71 Amplitude Rapid) [facility] PasoMlmpfzrIZDJVIXFXP8739-65-75 10:11:18 Test Item Value Reference Range Interpretation Comments Angle Rapid (test code = Angle 79 degrees 64-80 Rapid) [facility] PasoRouihoxJKGRQIDQXY3659-22-18 10:11:18 Test Item Value Reference Range Interpretation Comments INR (test code = INR) 0.98 0.85-1.17 [facility] PasoOsgabnpMFRHSUWYZJ8588-23-95 10:11:18 Test Item Value Reference Range Interpretation Comments PT (test code = PT) 13.3 s 12.0-14.7 [facility] PasoSpdagqsKBBGRURJFE7069-23-82 10:11:18 Test Item Value Reference Range Interpretation Comments MPV (test code = MPV) 10.4 7.4-10.4 [facility] PasoHlrsemuDXYDERKOVY6100-49-49 10:11:18 Test Item Value Reference Range Interpretation Comments Platelet (test code = Platelet) 178 133-450 [facility] PasoVdlbcjlNPGVHMGIBZ1939-05-09 10:11:18 Test Item Value Reference Range Interpretation Comments RDW (test code = RDW) 13.2 11.5-14.5 [facility] PasoZiwgvmoTKESGIFQIW7463-00-03 10:11:18 Test Item Value Reference Range Interpretation Comments MCH (test code = MCH) 30.4 pg 27.0-31.0 [facility] PasoLnvmzyuSCXZKCDQSO6442-42-20 10:11:18 Test Item Value Reference Range Interpretation Comments MCHC (test code = MCHC) 33.7 32.0-36.0 [facility] PasoSyvrzxaVSSGAPFWYW7619-89-16 10:11:18 Test Item Value Reference Range Interpretation Comments Angle Rapid (test code = Angle 79 degrees 64-80 Rapid) [facility] PasoLrdafzeKGGQCLJZYP0163-43-30 10:11:18 Test Item Value Reference Range Interpretation Comments Hgb (test code = Hgb) 12.2 12.0-16.0 [facility] PasoLmadotaCRJNEEROWD5096-35-92 10:11:18 Test Item Value Reference Range Interpretation Comments MCV (test code = MCV) 90.1 80.0-98.0 [facility] PasoPdybmrlNNJMUYABHS2331-20-67 10:11:18 Test Item Value Reference Range Interpretation Comments Hct (test code = Hct) 36.2 36.0-48.0 [facility] PasoUenjrmjWIHPEQPXFP4371-16-62 10:11:18 Test Item Value Reference Range Interpretation Comments RBC (test code = RBC) 4.02 4.20-5.40 [facility] PasoPuumxgmEENDBSVAIV8027-27-41 10:11:18 Test Item Value Reference Range Interpretation Comments WBC (test code = WBC) 10.1 3.7-10.4 [facility] PasoEjtwnueNATKLZUAWU9151-72-29 10:11:18 Test Item Value Reference Range Interpretation Comments PTT (test code = PTT) 35.5 s 22.9-35.8 [facility] PasoMoxqdnaOBLKOESUIS7664-15-91 10:11:18 Test Item Value Reference Range Interpretation Comments Eosinophils # (test code 0.2 See_Comment [A utomated message] The = Eosinophils #) system whic h generated this result tra nsmitted reference range : <=0.5. The reference r lily was not used to int erpret this result as normal/abnormal . [facility] PasoMhdxmruZQOCMDWFFU2246-62-59 10:11:18 Test Item Value Reference Range Interpretation Comments Monocytes (test code = Monocytes) 7.9 2.0-12.0 [facility] PasoBhgumoxVUOXJURVAM2041-24-25 10:11:18 Test Item Value Reference Range Interpretation Comments Eosinophils (test code = 2.5 See_Comment [A utomated message] The Eosinophils) system which ge nerated this result tra nsmitted reference range : <=4.0. The reference r lily was not used to int erpret this result as normal/abnormal . [facility] PasoRptdfqoNSWTFNQIHD4671-42-66 10:11:18 Test Item Value Reference Range Interpretation Comments Basophils # (test code 0.1 See_Comment [Aut omated message] The = Basophils #) system which generated this result tra nsmitted reference range : <=0.2. The reference r lily was not used to int erpret this result as normal/abnormal . [facility] PasoPmurclyREDEFDXLUH2531-60-10 10:11:18 Test Item Value Reference Range Interpretation Comments INR (test code = INR) 0.98 0.85-1.17 [facility] PasoPduvfnkDIIYCNAJMY7435-24-45 10:11:18 Test Item Value Reference Range Interpretation Comments Segs (test code = Segs) 65.1 45.0-75.0 [facility] PasoXwwhnanBYMVFXICUM7366-25-13 10:11:18 Test Item Value Reference Range Interpretation Comments Lymphocytes (test code = Lymphocytes) 23.7 20.0-40.0 [facility] PasoKauiufwHGDRVHOHUE1546-14-91 10:11:18 Test Item Value Reference Range Interpretation Comments Lymphocytes # (test code = Lymphocytes 2.4 1.0-5.5 #) [facility] PasoWkvuzwxNUEQVUXHBM0243-17-76 10:11:18 Test Item Value Reference Range Interpretation Comments Monocytes # (test code 0.8 See_Comment [Aut omated message] The = Monocytes #) system which generated this result tra nsmitted reference range : <=0.8. The reference r lily was not used to int erpret this result as normal/abnormal . [facility] PasoKaxqfzpHFZVGUOGOY2527-01-92 10:11:18 Test Item Value Reference Range Interpretation Comments Basophils (test code = 0.8 See_Comment [Aut omated message] The Basophils) system which ge nerated this result tra nsmitted reference range : <=1.0. The reference r lily was not used to int erpret this result as normal/abnormal . [facility] PasoHenkkmyEGLVELUCOD2226-98-65 10:11:18 Test Item Value Reference Range Interpretation Comments Segs-Bands # (test code = Segs-Bands #) 6.6 1.5-8.1 [facility] PasoHdxsxyfHSZHBEZNEQ5119-41-32 10:11:18 Test Item Value Reference Range Interpretation Comments PT (test code = PT) 13.3 s 12.0-14.7 [facility] PasoBbjislgCXJWENCAFV1611-92-20 10:11:18 Test Item Value Reference Range Interpretation Comments MPV (test code = MPV) 10.4 7.4-10.4 [facility] PasoUomqwteDXMMATWPJC2976-15-07 10:11:18 Test Item Value Reference Range Interpretation Comments Platelet (test code = Platelet) 178 133-450 [facility] PasoRvrewbeBOKKSRQMEG8967-30-85 10:11:18 Test Item Value Reference Range Interpretation Comments RDW (test code = RDW) 13.2 11.5-14.5 [facility] PasoNxfqeyeTFXQJTFCAL0502-73-10 10:11:18 Test Item Value Reference Range Interpretation Comments MCH (test code = MCH) 30.4 pg 27.0-31.0 [facility] PasoSerumigZFNGLRYUPL8363-26-67 10:11:18 Test Item Value Reference Range Interpretation Comments MCHC (test code = MCHC) 33.7 32.0-36.0 [facility] PasoHvusuutHUASXBMGZQ9366-55-47 10:11:18 Test Item Value Reference Range Interpretation Comments Hgb (test code = Hgb) 12.2 12.0-16.0 [facility] PasoRhootlsQGIPYPKIHZ5103-43-82 10:11:18 Test Item Value Reference Range Interpretation Comments MCV (test code = MCV) 90.1 80.0-98.0 [facility] PasoMkxqwmkKLLIZRUHCA4601-67-74 10:11:18 Test Item Value Reference Range Interpretation Comments Hct (test code = Hct) 36.2 36.0-48.0 [facility] PasoVgiuuxyBZVGJTYBHG7836-10-44 10:11:18 Test Item Value Reference Range Interpretation Comments RBC (test code = RBC) 4.02 4.20-5.40 [facility] PasoEqahgsfWBIJBGRWUZ0817-65-02 10:11:18 Test Item Value Reference Range Interpretation Comments WBC (test code = WBC) 10.1 3.7-10.4 [facility] PasoDrzvktpHZFCIHUNER6013-79-93 10:11:18 Test Item Value Reference Range Interpretation Comments PTT (test code = PTT) 35.5 s 22.9-35.8 [facility] PasoSxgxipoXMOWBHYCXZ9365-39-13 10:11:18 Test Item Value Reference Range Interpretation Comments Eosinophils # (test code 0.2 See_Comment [A utomated message] The = Eosinophils #) system whic h generated this result tra nsmitted reference range : <=0.5. The reference r lily was not used to int erpret this result as normal/abnormal . [facility] PasoEmwjtkcZPTJAVYHWX6273-54-14 10:11:18 Test Item Value Reference Range Interpretation Comments Monocytes (test code = Monocytes) 7.9 2.0-12.0 [facility] PasoUnoslzoDPKMFMZUZF4013-57-47 10:11:18 Test Item Value Reference Range Interpretation Comments Eosinophils (test code = 2.5 See_Comment [A utomated message] The Eosinophils) system which ge nerated this result tra nsmitted reference range : <=4.0. The reference r lily was not used to int erpret this result as normal/abnormal . [facility] PasoSndbdldOMFZECYONN6205-90-63 10:11:18 Test Item Value Reference Range Interpretation Comments Basophils # (test code 0.1 See_Comment [Aut omated message] The = Basophils #) system which generated this result tra nsmitted reference range : <=0.2. The reference r liyl was not used to int erpret this result as normal/abnormal . [facility] PasoAzbsqpxHSHPHVDTEF6509-51-64 10:11:18 Test Item Value Reference Range Interpretation Comments Segs (test code = Segs) 65.1 45.0-75.0 [facility] PasoInwmqxgHCBWVFHEZU7387-64-62 10:11:18 Test Item Value Reference Range Interpretation Comments Lymphocytes (test code = Lymphocytes) 23.7 20.0-40.0 [facility] PasoKqpiybyBVLYOHMMXS5950-96-43 10:11:18 Test Item Value Reference Range Interpretation Comments Lymphocytes # (test code = Lymphocytes 2.4 1.0-5.5 #) [facility] PasoZumbxkaKWEJKOOWDR3881-56-89 10:11:18 Test Item Value Reference Range Interpretation Comments Monocytes # (test code 0.8 See_Comment [Aut omated message] The = Monocytes #) system which generated this result tra nsmitted reference range : <=0.8. The reference r lily was not used to int erpret this result as normal/abnormal . [facility] PasoOcqbadmWHFVNMTULB0341-57-88 10:11:18 Test Item Value Reference Range Interpretation Comments Basophils (test code = 0.8 See_Comment [Aut omated message] The Basophils) system which ge nerated this result tra nsmitted reference range : <=1.0. The reference r lily was not used to int erpret this result as normal/abnormal . [facility] PasoUcmwczgKEPEZGRNTX8472-73-30 10:11:18 Test Item Value Reference Range Interpretation Comments Segs-Bands # (test code = Segs-Bands #) 6.6 1.5-8.1 [facility]2016-07-16 10:11:18 Test Item Value Reference Range Interpretation Comments Lactic Acid WB (test code = Lactic Acid 1.3 0.5-2.2 WB) [facility] HospitalSccwwpxQATQXLRRHVSR9198-46-13 10:11:18 Test Item Value Reference Range Interpretation Comments AGAP (test code = AGAP) 11.5 10.0-20.0 [facility]JfvedztCPLBWCEFBTJW7499-02-76 10:11:18 Test Item Value Reference Range Interpretation Comments eGFR (test code = eGFR) 87 [facility] HospitalLanismiEYBBEVTZGNHD5147-74-06 10:11:18 Test Item Value Reference Range Interpretation Comments Glucose Lvl (test code = Glucose Lvl) 125 70-99 [facility] HospitalVsfkbpeTNHRGOPUHSKW8617-51-26 10:11:18 Test Item Value Reference Range Interpretation Comments BUN (test code = BUN) 16 7-22 [facility] HospitalQcygyewEYZMVMUJSPAD4377-88-63 10:11:18 Test Item Value Reference Range Interpretation Comments Creatinine Lvl (test code = Creatinine 0.74 0.50-1.40 Lvl) [facility] HospitalUtcugnnJGLSGGFKGFHV2611-96-81 10:11:18 Test Item Value Reference Range Interpretation Comments Potassium Lvl (test code = Potassium 3.5 3.5-5.1 Lvl) [facility] HospitalLcmpzfhGGMUPODWFVVU1418-14-75 10:11:18 Test Item Value Reference Range Interpretation Comments Chloride Lvl (test code = Chloride Lvl) 104 95-109 [facility] HospitalYeygnorKYLEMREHFGFE9734-55-89 10:11:18 Test Item Value Reference Range Interpretation Comments Sodium Lvl (test code = Sodium Lvl) 141 135-145 [facility] HospitalQalfnqpNTIXXNJADENT7819-10-24 10:11:18 Test Item Value Reference Range Interpretation Comments CO2 (test code = CO2) 29 24-32 [facility] HospitalQeogskkXTDNRVFIBQQG2071-62-32 10:11:18 Test Item Value Reference Range Interpretation Comments Calcium Lvl (test code = Calcium Lvl) 9.4 8.5-10.5 [facility] PasoYrggdzaCVJIOABHJZ9672-91-81 10:11:18 Test Item Value Reference Range Interpretation Comments Estimated % Lysis Rapid 1.2 See_Comment [Au tomated message] The (test code = Estimated syste m which generated % Lysis Rapid) this result t ransmitted reference range : <=7.5. The reference r lily was not used to int erpret this result as normal/abnormal . [facility] PasoXpmtsibIGBSEERYVB9231-71-77 10:11:18 Test Item Value Reference Range Interpretation Comments K-time Rapid (test code = K-time 0.8 min 0.6-2.3 Rapid) [facility] PasoPzgkabmRRXZIOYHTF1989-42-76 10:11:18 Test Item Value Reference Range Interpretation Comments Split Point Rapid (test code = Split 0.4 min Point Rapid) [facility] PasoUqbufdhRFYALDNGBG5260-99-17 10:11:18 Test Item Value Reference Range Interpretation Comments ACT (TEG) Rapid (test code = ACT (TEG) 97 s 86-118 Rapid) [facility] PasoPjlsnaeMYNMZFLXLF7537-70-96 10:11:18 Test Item Value Reference Range Interpretation Comments R-time Rapid (test code = R-time 0.5 min 0.4-0.7 Rapid) [facility] PasoQasnmpsXLOLDMOHNR9573-19-60 10:11:18 Test Item Value Reference Range Interpretation Comments G-value Rapid (test code = G-value 12.5 5.0-11.6 Rapid) [facility] PasoPvohailNYKNTOPQTS8564-89-13 10:11:18 Test Item Value Reference Range Interpretation Comments Max Amplitude Rapid (test code = Max 72 mm 52-71 Amplitude Rapid) [facility] PasoFzsqwwbJJKLQSVANC4897-71-76 10:11:18 Test Item Value Reference Range Interpretation Comments Angle Rapid (test code = Angle 79 degrees 64-80 Rapid) [facility] PasoKkabwzzUTYWTCAUVD6039-57-44 10:11:18 Test Item Value Reference Range Interpretation Comments INR (test code = INR) 0.98 0.85-1.17 [facility] PasoKeyghtqYCCMTHJSWO8594-29-36 10:11:18 Test Item Value Reference Range Interpretation Comments PT (test code = PT) 13.3 s 12.0-14.7 [facility] PasoBfrxamhOVDOYUGVMP3335-25-22 10:11:18 Test Item Value Reference Range Interpretation Comments MPV (test code = MPV) 10.4 7.4-10.4 [facility] PasoIzkyhikCNVCBUHIRE0047-38-79 10:11:18 Test Item Value Reference Range Interpretation Comments Platelet (test code = Platelet) 178 133-450 [facility] PasoSogrnboXKEJYHQACO4199-42-07 10:11:18 Test Item Value Reference Range Interpretation Comments RDW (test code = RDW) 13.2 11.5-14.5 [facility] PasoYaetfggJEJSCNKVBJ6465-87-60 10:11:18 Test Item Value Reference Range Interpretation Comments MCH (test code = MCH) 30.4 pg 27.0-31.0 [facility] PasoBnroimqCLVBSAEPSY4039-61-77 10:11:18 Test Item Value Reference Range Interpretation Comments MCHC (test code = MCHC) 33.7 32.0-36.0 [facility] PasoGxznnklWVKSASSKQE7043-28-79 10:11:18 Test Item Value Reference Range Interpretation Comments Hgb (test code = Hgb) 12.2 12.0-16.0 [facility] PasoXdpsmjkNQKGNSOCSA5671-57-71 10:11:18 Test Item Value Reference Range Interpretation Comments MCV (test code = MCV) 90.1 80.0-98.0 [facility] PasoWkcyyuyOJQSMHBDBR8434-95-52 10:11:18 Test Item Value Reference Range Interpretation Comments Hct (test code = Hct) 36.2 36.0-48.0 [facility] PasoFxpfwxhHUUVZJMKBD5133-01-12 10:11:18 Test Item Value Reference Range Interpretation Comments RBC (test code = RBC) 4.02 4.20-5.40 [place]186-07-16 10:11:18 Test Item Value Reference Range Interpretation Comments WBC (test code = WBC) 10.1 3.7-10.4 [facility] PasoUjiygaoARMBUTSUJN2963-74-26 10:11:18 Test Item Value Reference Range Interpretation Comments PTT (test code = PTT) 35.5 s 22.9-35.8 [facility] PasoFuckhfuZKMRBBREJK7001-67-75 10:11:18 Test Item Value Reference Range Interpretation Comments Eosinophils # (test code 0.2 See_Comment [A utomated message] The = Eosinophils #) system whic h generated this result tra nsmitted reference range : <=0.5. The reference r lily was not used to int erpret this result as normal/abnormal . [facility] PasoInmitwzKCCDHSEOAJ7751-17-00 10:11:18 Test Item Value Reference Range Interpretation Comments Monocytes (test code = Monocytes) 7.9 2.0-12.0 [facility] PasoAqxvxlzIRBFCJXELW7332-14-36 10:11:18 Test Item Value Reference Range Interpretation Comments Eosinophils (test code = 2.5 See_Comment [A utomated message] The Eosinophils) system which ge nerated this result tra nsmitted reference range : <=4.0. The reference r lily was not used to int erpret this result as normal/abnormal . [facility] PasoAozfgonIYFGTDHEZF1540-24-35 10:11:18 Test Item Value Reference Range Interpretation Comments Basophils # (test code 0.1 See_Comment [Aut omated message] The = Basophils #) system which generated this result tra nsmitted reference range : <=0.2. The reference r lily was not used to int erpret this result as normal/abnormal . [facility] PasoEzspgpxYCENTQJZHK7387-09-37 10:11:18 Test Item Value Reference Range Interpretation Comments Segs (test code = Segs) 65.1 45.0-75.0 [facility] PasoTzlqhlpDJUHABOFJJ3703-24-53 10:11:18 Test Item Value Reference Range Interpretation Comments Lymphocytes (test code = Lymphocytes) 23.7 20.0-40.0 [facility] PasoFrdlsbcMJJXHZRAQB4371-64-41 10:11:18 Test Item Value Reference Range Interpretation Comments Lymphocytes # (test code = Lymphocytes 2.4 1.0-5.5 #) [facility] PasoAlwiguqQEGOGCBTNO2465-47-52 10:11:18 Test Item Value Reference Range Interpretation Comments Monocytes # (test code 0.8 See_Comment [Aut omated message] The = Monocytes #) system which generated this result tra nsmitted reference range : <=0.8. The reference r lily was not used to int erpret this result as normal/abnormal . [facility] PasoJoxvdgqPUAYRFOAKT5301-70-92 10:11:18 Test Item Value Reference Range Interpretation Comments Basophils (test code = 0.8 See_Comment [Aut omated message] The Basophils) system which ge nerated this result tra nsmitted reference range : <=1.0. The reference r lily was not used to int erpret this result as normal/abnormal . [facility] PasoMomtpbyLZUXQKXWEN6471-44-53 10:11:18 Test Item Value Reference Range Interpretation Comments Segs-Bands # (test code = Segs-Bands #) 6.6 1.5-8.1 [facility]2016-07-16 10:11:18 Test Item Value Reference Range Interpretation Comments Lactic Acid WB (test code = Lactic Acid 1.3 0.5-2.2 WB) [facility] HospitalRbjiojgNZRDKVQJYQDV0226-50-25 10:11:18 Test Item Value Reference Range Interpretation Comments AGAP (test code = AGAP) 11.5 10.0-20.0 [facility] HospitalSryqrjaUTNEENDFMOQT7173-59-18 10:11:18 Test Item Value Reference Range Interpretation Comments eGFR (test code = eGFR) 87 [facility] HospitalXpyvibrLNOAWBKEQYKL8897-85-21 10:11:18 Test Item Value Reference Range Interpretation Comments Glucose Lvl (test code = Glucose Lvl) 125 70-99 [facility] HospitalNittmcdTIIYMURUDTYH4013-92-45 10:11:18 Test Item Value Reference Range Interpretation Comments BUN (test code = BUN) 16 7-22 [facility] HospitalLognanlFUQJBZVQZXCS7623-59-37 10:11:18 Test Item Value Reference Range Interpretation Comments Creatinine Lvl (test code = Creatinine 0.74 0.50-1.40 Lvl) [facility] HospitalYottfzrSSBRTTPPFPSH1407-84-02 10:11:18 Test Item Value Reference Range Interpretation Comments Potassium Lvl (test code = Potassium 3.5 3.5-5.1 Lvl) [facility] HospitalOsxbuzrQZXNGJZKAWYV0096-58-23 10:11:18 Test Item Value Reference Range Interpretation Comments Chloride Lvl (test code = Chloride Lvl) 104 95-109 [facility] HospitalSfgkzdbCBAVFJJLVMKJ4772-16-93 10:11:18 Test Item Value Reference Range Interpretation Comments Sodium Lvl (test code = Sodium Lvl) 141 135-145 [facility] HospitalLjfjxylSPWZAPTUFQCU3821-81-85 10:11:18 Test Item Value Reference Range Interpretation Comments CO2 (test code = CO2) 29 24-32 [facility] HospitalZqucurzLJGJLVYROEKD7997-04-26 10:11:18 Test Item Value Reference Range Interpretation Comments Calcium Lvl (test code = Calcium Lvl) 9.4 8.5-10.5 [facility] PasoZomhsxnTOTPKFLDLF0717-24-09 10:11:18 Test Item Value Reference Range Interpretation Comments Estimated % Lysis Rapid 1.2 See_Comment [Au tomated message] The (test code = Estimated syste m which generated % Lysis Rapid) this result t ransmitted reference range : <=7.5. The reference r lily was not used to int erpret this result as normal/abnormal . [facility] PasoQmeimlhHYTTJDXGGY9478-02-00 10:11:18 Test Item Value Reference Range Interpretation Comments K-time Rapid (test code = K-time 0.8 min 0.6-2.3 Rapid) [facility] PasoFuijsmuKAHEEADKJU8759-94-49 10:11:18 Test Item Value Reference Range Interpretation Comments Split Point Rapid (test code = Split 0.4 min Point Rapid) [facility] PasoOzgnzieVAMRSNVYBW4904-21-82 10:11:18 Test Item Value Reference Range Interpretation Comments ACT (TEG) Rapid (test code = ACT (TEG) 97 s 86-118 Rapid) [facility] PasoXcehdwsPMTXYABNSP6380-11-67 10:11:18 Test Item Value Reference Range Interpretation Comments R-time Rapid (test code = R-time 0.5 min 0.4-0.7 Rapid) [facility] PasoZpxwphvWVEQGPHFNS6950-81-82 10:11:18 Test Item Value Reference Range Interpretation Comments G-value Rapid (test code = G-value 12.5 5.0-11.6 Rapid) [facility] PasoMfjxsafPEMTEECKZF7206-50-95 10:11:18 Test Item Value Reference Range Interpretation Comments Max Amplitude Rapid (test code = Max 72 mm 52-71 Amplitude Rapid) [facility] PasoOkkgaldLJEBBBXINW1017-59-58 10:11:18 Test Item Value Reference Range Interpretation Comments Angle Rapid (test code = Angle 79 degrees 64-80 Rapid) [facility] PasoEnjtgtnTLUQBTUWFQ9232-91-99 10:11:18 Test Item Value Reference Range Interpretation Comments INR (test code = INR) 0.98 0.85-1.17 [facility] PasoLtekibvPJBAEPEMLG6371-87-90 10:11:18 Test Item Value Reference Range Interpretation Comments PT (test code = PT) 13.3 s 12.0-14.7 [facility] PasoTnojkbvXKIGHQDMST3349-00-15 10:11:18 Test Item Value Reference Range Interpretation Comments MPV (test code = MPV) 10.4 7.4-10.4 [facility] PasoWjfsgwzAFBYUINNYE3440-28-66 10:11:18 Test Item Value Reference Range Interpretation Comments Platelet (test code = Platelet) 178 133-450 [facility] PasoZtxazagWPEYOHETWB9420-44-03 10:11:18 Test Item Value Reference Range Interpretation Comments RDW (test code = RDW) 13.2 11.5-14.5 [facility] PasoHmfluccGLPTZDECAX2982-32-05 10:11:18 Test Item Value Reference Range Interpretation Comments MCH (test code = MCH) 30.4 pg 27.0-31.0 [facility] PasoZlrrompMOYFQUHWXN5410-38-88 10:11:18 Test Item Value Reference Range Interpretation Comments MCHC (test code = MCHC) 33.7 32.0-36.0 [facility] PasoFgncoxdQKOBPGTFCN3607-52-86 10:11:18 Test Item Value Reference Range Interpretation Comments Hgb (test code = Hgb) 12.2 12.0-16.0 [facility] PasoFogcpkpZGVRXPSCDZ5162-25-65 10:11:18 Test Item Value Reference Range Interpretation Comments MCV (test code = MCV) 90.1 80.0-98.0 [facility] PasoFwmdkwpRKULHZODFQ7421-33-74 10:11:18 Test Item Value Reference Range Interpretation Comments Hct (test code = Hct) 36.2 36.0-48.0 [facility] PasoLgbtaseEVHMMKMKKY3733-86-12 10:11:18 Test Item Value Reference Range Interpretation Comments RBC (test code = RBC) 4.02 4.20-5.40 [facility] PasoFsgaxdnTQVMILGRQI0518-51-71 10:11:18 Test Item Value Reference Range Interpretation Comments WBC (test code = WBC) 10.1 3.7-10.4 [facility] PasoUellougVWIWFDQHSI8233-86-34 10:11:18 Test Item Value Reference Range Interpretation Comments PTT (test code = PTT) 35.5 s 22.9-35.8 [facility] PasoLfisubeBUSBZPULAF3869-22-83 10:11:18 Test Item Value Reference Range Interpretation Comments Eosinophils # (test code 0.2 See_Comment [A utomated message] The = Eosinophils #) system whic h generated this result tra nsmitted reference range : <=0.5. The reference r lily was not used to int erpret this result as normal/abnormal . [facility] PasoDttlaphVNZHJIYEDB3032-09-27 10:11:18 Test Item Value Reference Range Interpretation Comments Monocytes (test code = Monocytes) 7.9 2.0-12.0 [facility] PasoBylmesuUYYYRYUEXB5370-39-51 10:11:18 Test Item Value Reference Range Interpretation Comments Eosinophils (test code = 2.5 See_Comment [A utomated message] The Eosinophils) system which ge nerated this result tra nsmitted reference range : <=4.0. The reference r lily was not used to int erpret this result as normal/abnormal . [facility] PasoKsweaioPVDHXKGAFH8898-81-36 10:11:18 Test Item Value Reference Range Interpretation Comments Basophils # (test code 0.1 See_Comment [Aut omated message] The = Basophils #) system which generated this result tra nsmitted reference range : <=0.2. The reference r lily was not used to int erpret this result as normal/abnormal . [facility] PasoGagkngcWCSOAGRPXP6081-60-27 10:11:18 Test Item Value Reference Range Interpretation Comments Segs (test code = Segs) 65.1 45.0-75.0 [facility] PasoUczuzukKQZHJKDENH9830-83-83 10:11:18 Test Item Value Reference Range Interpretation Comments Lymphocytes (test code = Lymphocytes) 23.7 20.0-40.0 [facility] PasoBnukixdXZVCVFVNCW7897-57-02 10:11:18 Test Item Value Reference Range Interpretation Comments Lymphocytes # (test code = Lymphocytes 2.4 1.0-5.5 #) [facility] PasoYcoavhkHBBSKIYSHA6340-88-98 10:11:18 Test Item Value Reference Range Interpretation Comments Monocytes # (test code 0.8 See_Comment [Aut omated message] The = Monocytes #) system which generated this result tra nsmitted reference range : <=0.8. The reference r lily was not used to int erpret this result as normal/abnormal . [facility]KzksbjuSRWRQGIASS6215-91-06 10:11:18 Test Item Value Reference Range Interpretation Comments Basophils (test code = 0.8 See_Comment [Aut omated message] The Basophils) system which ge nerated this result tra nsmitted reference range : <=1.0. The reference r lily was not used to int erpret this result as normal/abnormal . [facility] CampusLqujtofAFJJLSXXSB5914-63-83 10:11:18 Test Item Value Reference Range Interpretation Comments Segs-Bands # (test code = Segs-Bands #) 6.6 1.5-8.1 [facility] JGKCRAB2366-13-66 10:01:00 Test Item Value Reference Range Interpretation Comments ABO/Rh (test code = ABO/Rh) O POS [facility] OMTRLDG4219-90-04 10:01:00 Test Item Value Reference Range Interpretation Comments Antibody Scrn (test Negative (10/13/15 5:01 code = Antibody Scrn) AM) [facility] ZKQMDVZ3633-91-37 10:01:00 Test Item Value Reference Range Interpretation Comments ABO/Rh (test code = ABO/Rh) O POS [facility] JPEBCOI1237-10-88 10:01:00 Test Item Value Reference Range Interpretation Comments Antibody Scrn (test Negative (10/13/15 5:01 code = Antibody Scrn) AM) [facility] RIIAFEA5578-56-81 10:01:00 Test Item Value Reference Range Interpretation Comments ABO/Rh (test code = ABO/Rh) O POS [facility] DHHEGXO4950-24-68 10:01:00 Test Item Value Reference Range Interpretation Comments Antibody Scrn (test Negative (10/13/15 5:01 code = Antibody Scrn) AM) [facility] IFFHJNT5560-67-72 10:01:00 Test Item Value Reference Range Interpretation Comments ABO/Rh (test code = ABO/Rh) O POS [facility] PFCGCUL5281-22-66 10:01:00 Test Item Value Reference Range Interpretation Comments Antibody Scrn (test Negative (10/13/15 5:01 code = Antibody Scrn) AM) [facility] XKCEAUW0924-41-50 10:01:00 Test Item Value Reference Range Interpretation Comments ABO/Rh (test code = ABO/Rh) O POS [facility] NXKUTTP9157-95-73 10:01:00 Test Item Value Reference Range Interpretation Comments Antibody Scrn (test Negative (10/13/15 5:01 code = Antibody Scrn) AM) [facility] AAMGEWO0693-28-34 10:01:00 Test Item Value Reference Range Interpretation Comments ABO/Rh (test code = ABO/Rh) O POS [facility] QLMNMBB6043-08-38 10:01:00 Test Item Value Reference Range Interpretation Comments Antibody Scrn (test Negative (10/13/15 5:01 code = Antibody Scrn) AM) [facility] [id number] 10:01:00 Test Item Value Reference Range Interpretation Comments ABO/Rh (test code = ABO/Rh) O POS [facility] YCEDPNO5797-54-19 10:01:00 Test Item Value Reference Range Interpretation Comments Antibody Scrn (test Negative (10/13/15 5:01 code = Antibody Scrn) AM) [facility] ODHQBXO6150-39-95 10:01:00 Test Item Value Reference Range Interpretation Comments ABO/Rh (test code = ABO/Rh) O POS [facility] FOWIYCM0902-90-38 10:01:00 Test Item Value Reference Range Interpretation Comments Antibody Scrn (test Negative (10/13/15 5:01 code = Antibody Scrn) AM) [facility] CNRRBWM1610-53-73 10:01:00 Test Item Value Reference Range Interpretation Comments ABO/Rh (test code = ABO/Rh) O POS [facility] [id number] 10:01:00 Test Item Value Reference Range Interpretation Comments Antibody Scrn (test Negative (10/13/15 5:01 code = Antibody Scrn) AM) [facility] AZJJPMJ1773-59-14 10:01:00 Test Item Value Reference Range Interpretation Comments ABO/Rh (test code = ABO/Rh) O [facility] EPIZJHQ6908-60-97 10:01:00 Test Item Value Reference Range Interpretation Comments Antibody Scrn (test Negative (10/13/15 5:01 code = Antibody Scrn) AM) [facility] [id number] 10:01:00 Test Item Value Reference Range Interpretation Comments ABO/Rh (test code = ABO/Rh) O POS [facility] [id number] 10:01:00 Test Item Value Reference Range Interpretation Comments Antibody Scrn (test Negative (10/13/15 5:01 code = Antibody Scrn) AM) [facility] [id number] 10:01:00 Test Item Value Reference Range Interpretation Comments ABO/Rh (test code = ABO/Rh) O [facility] GZLROQO9127-06-80 10:01:00 Test Item Value Reference Range Interpretation Comments Antibody Scrn (test Negative (10/13/15 5:01 code = Antibody Scrn) AM) [facility] OKNJKDX6823-23-52 10:01:00 Test Item Value Reference Range Interpretation Comments ABO/Rh (test code = ABO/Rh) O [facility] [id number] 10:01:00 Test Item Value Reference Range Interpretation Comments Antibody Scrn (test Negative (10/13/15 5:01 code = Antibody Scrn) AM) [facility] KFAESJS2655-30-22 10:01:00 Test Item Value Reference Range Interpretation Comments ABO/Rh (test code = ABO/Rh) O [facility] ZZKBJGQ8733-11-34 10:01:00 Test Item Value Reference Range Interpretation Comments Antibody Scrn (test Negative (10/13/15 5:01 code = Antibody Scrn) AM) [facility] [id number] 10:01:00 Test Item Value Reference Range Interpretation Comments ABO/Rh (test code = ABO/Rh) O [facility] MNVCQVA2512-69-72 10:01:00 Test Item Value Reference Range Interpretation Comments Antibody Scrn (test Negative (10/13/15 5:01 code = Antibody Scrn) AM) [facility] [id number] 10:01:00 Test Item Value Reference Range Interpretation Comments ABO/Rh (test code = ABO/Rh) O [facility] [id number] 10:01:00 Test Item Value Reference Range Interpretation Comments Antibody Scrn (test Negative (10/13/15 5:01 code = Antibody Scrn) AM) [facility] [id number] 10:01:00 Test Item Value Reference Range Interpretation Comments ABO/Rh (test code = ABO/Rh) O [facility] [id number] 10:01:00 Test Item Value Reference Range Interpretation Comments Antibody Scrn (test Negative (10/13/15 5:01 code = Antibody Scrn) AM) [facility] [id number] 10:01:00 Test Item Value Reference Range Interpretation Comments ABO/Rh (test code = ABO/Rh) O [facility] [id number] 10:01:00 Test Item Value Reference Range Interpretation Comments Antibody Scrn (test Negative (10/13/15 5:01 code = Antibody Scrn) AM) [facility] [id number] 10:01:00 Test Item Value Reference Range Interpretation Comments ABO/Rh (test code = ABO/Rh) O [facility] [id number] 10:01:00 Test Item Value Reference Range Interpretation Comments Antibody Scrn (test Negative (10/13/15 5:01 code = Antibody Scrn) AM) [facility] [id number] 10:01:00 Test Item Value Reference Range Interpretation Comments ABO/Rh (test code = ABO/Rh) O [facility] [id number] 10:01:00 Test Item Value Reference Range Interpretation Comments Antibody Scrn (test Negative (10/13/15 5:01 code = Antibody Scrn) AM) [facility] [id number] 10:01:00 Test Item Value Reference Range Interpretation Comments ABO/Rh (test code = ABO/Rh) O [facility] [id number] 10:01:00 Test Item Value Reference Range Interpretation Comments Antibody Scrn (test Negative (10/13/15 5:01 code = Antibody Scrn) AM) [facility] [facility] [id number] 10:01:00 Test Item Value Reference Range Interpretation Comments ABO/Rh (test code = ABO/Rh) O POS [facility] [id number] 10:01:00 Test Item Value Reference Range Interpretation Comments Antibody Scrn (test Negative (10/13/15 5:01 code = Antibody Scrn) AM) [facility] [id number] 10:01:00 Test Item Value Reference Range Interpretation Comments ABO/Rh (test code = ABO/Rh) O POS [facility] [id number] 10:01:00 Test Item Value Reference Range Interpretation Comments Antibody Scrn (test Negative (10/13/15 5:01 code = Antibody Scrn) AM) [facility] [id number] 10:01:00 Test Item Value Reference Range Interpretation Comments ABO/Rh (test code = ABO/Rh) O [facility] [id number] 10:01:00 Test Item Value Reference Range Interpretation Comments Antibody Scrn (test Negative (10/13/15 5:01 code = Antibody Scrn) AM) [facility] [id number] 10:01:00 Test Item Value Reference Range Interpretation Comments ABO/Rh (test code = ABO/Rh) O [facility] [id number] 10:01:00 Test Item Value Reference Range Interpretation Comments Antibody Scrn (test Negative (10/13/15 5:01 code = Antibody Scrn) AM) [facility] [id number] 10:01:00 Test Item Value Reference Range Interpretation Comments ABO/Rh (test code = ABO/Rh) O [facility] [id number] 10:01:00 Test Item Value Reference Range Interpretation Comments Antibody Scrn (test Negative (10/13/15 5:01 code = Antibody Scrn) AM) [facility] [id number] 10:01:00 Test Item Value Reference Range Interpretation Comments ABO/Rh (test code = ABO/Rh) O [facility] [id number] 10:01:00 Test Item Value Reference Range Interpretation Comments Antibody Scrn (test Negative (10/13/15 5:01 code = Antibody Scrn) AM) [facility] [id number] 10:01:00 Test Item Value Reference Range Interpretation Comments ABO/Rh (test code = ABO/Rh) O POS [facility] [id number] 10:01:00 Test Item Value Reference Range Interpretation Comments Antibody Scrn (test Negative (10/13/15 5:01 code = Antibody Scrn) AM) [facility] [id number] 10:01:00 Test Item Value Reference Range Interpretation Comments ABO/Rh (test code = ABO/Rh) O POS [facility] [id number] 10:01:00 Test Item Value Reference Range Interpretation Comments Antibody Scrn (test Negative (10/13/15 5:01 code = Antibody Scrn) AM) [facility] [id number] 10:01:00 Test Item Value Reference Range Interpretation Comments ABO/Rh (test code = ABO/Rh) O [facility] [id number] 10:01:00 Test Item Value Reference Range Interpretation Comments Antibody Scrn (test Negative (10/13/15 5:01 code = Antibody Scrn) AM) [facility] [id number] 10:01:00 Test Item Value Reference Range Interpretation Comments ABO/Rh (test code = ABO/Rh) O [facility] [id number] 10:01:00 Test Item Value Reference Range Interpretation Comments Antibody Scrn (test Negative (10/13/15 5:01 code = Antibody Scrn) AM) [facility] [id number] 10:01:00 Test Item Value Reference Range Interpretation Comments ABO/Rh (test code = ABO/Rh) O [facility] [id number] 10:01:00 Test Item Value Reference Range Interpretation Comments Antibody Scrn (test Negative (10/13/15 5:01 code = Antibody Scrn) AM) [facility] [id number] 10:01:00 Test Item Value Reference Range Interpretation Comments ABO/Rh (test code = ABO/Rh) O [facility] [id number] 10:01:00 Test Item Value Reference Range Interpretation Comments ABO/Rh (test code = ABO/Rh) O [facility] [id number] 10:01:00 Test Item Value Reference Range Interpretation Comments Antibody Scrn (test Negative (10/13/15 5:01 code = Antibody Scrn) AM) [facility] [id number] 10:01:00 Test Item Value Reference Range Interpretation Comments Antibody Scrn (test Negative (10/13/15 5:01 code = Antibody Scrn) AM) [facility] [id number] 10:01:00 Test Item Value Reference Range Interpretation Comments ABO/Rh (test code = ABO/Rh) O [facility] [id number] 10:01:00 Test Item Value Reference Range Interpretation Comments Antibody Scrn (test Negative (10/13/15 5:01 code = Antibody Scrn) AM) [facility] [id number] 10:01:00 Test Item Value Reference Range Interpretation Comments ABO/Rh (test code = ABO/Rh) O [facility] [id number] 10:01:00 Test Item Value Reference Range Interpretation Comments Antibody Scrn (test Negative (10/13/15 5:01 code = Antibody Scrn) AM) [facility] [id number] 10:01:00 Test Item Value Reference Range Interpretation Comments ABO/Rh (test code = ABO/Rh) O [facility] [id number] 10:01:00 Test Item Value Reference Range Interpretation Comments Antibody Scrn (test Negative (10/13/15 5:01 code = Antibody Scrn) AM) [facility] [id number] 10:01:00 Test Item Value Reference Range Interpretation Comments ABO/Rh (test code = ABO/Rh) O [facility] [id number] 10:01:00 Test Item Value Reference Range Interpretation Comments Antibody Scrn (test Negative (10/13/15 5:01 code = Antibody Scrn) AM) [facility] [id number] 10:01:00 Test Item Value Reference Range Interpretation Comments ABO/Rh (test code = ABO/Rh) O [facility] [id number] 10:01:00 Test Item Value Reference Range Interpretation Comments Antibody Scrn (test Negative (10/13/15 5:01 code = Antibody Scrn) AM) [facility] [id number] 10:01:00 Test Item Value Reference Range Interpretation Comments ABO/Rh (test code = ABO/Rh) O POS [facility] [id number] 10:01:00 Test Item Value Reference Range Interpretation Comments Antibody Scrn (test Negative (10/13/15 5:01 code = Antibody Scrn) AM) [facility] [id number] 10:01:00 Test Item Value Reference Range Interpretation Comments ABO/Rh (test code = ABO/Rh) O POS [facility] [id number] 10:01:00 Test Item Value Reference Range Interpretation Comments Antibody Scrn (test Negative (10/13/15 5:01 code = Antibody Scrn) AM) [facility] [id number] 10:01:00 Test Item Value Reference Range Interpretation Comments ABO/Rh (test code = ABO/Rh) O POS [facility] [id number] 10:01:00 Test Item Value Reference Range Interpretation Comments Antibody Scrn (test Negative (10/13/15 5:01 code = Antibody Scrn) AM) [facility] [id number] 10:01:00 Test Item Value Reference Range Interpretation Comments ABO/Rh (test code = ABO/Rh) O [facility] [id number] 10:01:00 Test Item Value Reference Range Interpretation Comments Antibody Scrn (test Negative (10/13/15 5:01 code = Antibody Scrn) AM) [facility] [id number] 10:01:00 Test Item Value Reference Range Interpretation Comments ABO/Rh (test code = ABO/Rh) O [facility] [id number] 10:01:00 Test Item Value Reference Range Interpretation Comments Antibody Scrn (test Negative (10/13/15 5:01 code = Antibody Scrn) AM) [facility] [id number] 10:01:00 Test Item Value Reference Range Interpretation Comments ABO/Rh (test code = ABO/Rh) O POS [facility] [id number] 10:01:00 Test Item Value Reference Range Interpretation Comments Antibody Scrn (test Negative (10/13/15 5:01 code = Antibody Scrn) AM) [facility] [id number] 10:01:00 Test Item Value Reference Range Interpretation Comments ABO/Rh (test code = ABO/Rh) O POS [facility] [id number] 10:01:00 Test Item Value Reference Range Interpretation Comments Antibody Scrn (test Negative (10/13/15 5:01 code = Antibody Scrn) AM) [facility] Notes Date/Time Note Provider Source 2021-11-24 PROCEDURE INFORMATION: [facility] 01:35:55-00:00 Exam: XR Chest Exam date and time: 11/24/2021 1:18 AM Age: 66 years old Clinical indication: /chest pain TECHNIQUE: Imaging protocol: Radiologic exam of the chest. Views: 1 view. COMPARISON: CR CHEST 1VIEW DX 04/09/2019 4:34 PM FINDINGS: Lungs: Left mid lung linear atelectasis or scarring. Lungs are otherwise clear. Pleural spaces: No pleural effusion. No pneumoth orax. Heart/Mediastinum: Cardiomediastinal silhouette is normal in size. Bones/joints: Cervical spine hardware seen. IMPRESSION: No acute findings. Raul West MD On 11/24/2021 01:50:09; RICKY [id number] 2021-11-24 PROCEDURE INFORMATION: [facility] 01:35:55-00:00 Exam: XR Chest Exam date and time: 11/24/2021 1:18 AM Age: 66 years old Clinical indication: /chest pain TECHNIQUE: Imaging protocol: Radiologic exam of the chest. Views: 1 view. COMPARISON: CR CHEST 1VIEW DX 04/09/2019 4:34 PM FINDINGS: Lungs: Left mid lung linear atelectasis or scarring. Lungs are otherwise clear. Pleural spaces: No pleural effusion. No pneumoth orax. Heart/Mediastinum: Cardiomediastinal silhouette is normal in size. Bones/joints: Cervical spine hardware seen. IMPRESSION: No acute findings. Raul West MD On 11/24/2021 01:50:09; RICKY [id number] 2021-11-24 PROCEDURE INFORMATION: [facility] 01:35:55-00:00 Exam: XR Chest Exam date and time: 11/24/2021 1:18 AM Age: 66 years old Clinical indication: /chest pain TECHNIQUE: Imaging protocol: Radiologic exam of the chest. Views: 1 view. COMPARISON: CR CHEST 1VIEW DX 04/09/2019 4:34 PM FINDINGS: Lungs: Left mid lung linear atelectasis or scarring. Lungs are otherwise clear. Pleural spaces: No pleural effusion. No pneumoth orax. Heart/Mediastinum: Cardiomediastinal silhouette is normal in size. Bones/joints: Cervical spine hardware seen. IMPRESSION: No acute findings. Raul West MD On 11/24/2021 01:50:09; VR-SGE [id number] 2021-11-24 PROCEDURE INFORMATION: [facility] :35:55-00:00 Exam: XR Chest Exam date and time: 11/24/2021 1:18 AM Age: 66 years old Clinical indication: /chest pain TECHNIQUE: Imaging protocol: Radiologic exam of the chest. Views: 1 view. COMPARISON: CR CHEST 1VIEW DX 04/09/2019 4:34 PM FINDINGS: Lungs: Left mid lung linear atelectasis or scarring. Lungs are otherwise clear. Pleural spaces: No pleural effusion. No pneumoth orax. Heart/Mediastinum: Cardiomediastinal silhouette is normal in size. Bones/joints: Cervical spine hardware seen. IMPRESSION: No acute findings. Raul West MD On 11/24/2021 01:50:09; VR-SGE [id number] 2021-11-24 PROCEDURE INFORMATION: [facility] :35:55-00:00 Exam: XR Chest Exam date and time: 11/24/2021 1:18 AM Age: 66 years old Clinical indication: /chest pain TECHNIQUE: Imaging protocol: Radiologic exam of the chest. Views: 1 view. COMPARISON: CR CHEST 1VIEW DX 04/09/2019 4:34 PM FINDINGS: Lungs: Left mid lung linear atelectasis or scarring. Lungs are otherwise clear. Pleural spaces: No pleural effusion. No pneumoth orax. Heart/Mediastinum: Cardiomediastinal silhouette is normal in size. Bones/joints: Cervical spine hardware seen. IMPRESSION: No acute findings. Raul West MD On 11/24/2021 01:50:09; VR-SGE [id number] 2021-11-24 PROCEDURE INFORMATION: [facility] :35:55-00:00 Exam: XR Chest Exam date and time: 11/24/2021 1:18 AM Age: 66 years old Clinical indication: /chest pain TECHNIQUE: Imaging protocol: Radiologic exam of the chest. Views: 1 view. COMPARISON: CR CHEST 1VIEW DX 04/09/2019 4:34 PM FINDINGS: Lungs: Left mid lung linear atelectasis or scarring. Lungs are otherwise clear. Pleural spaces: No pleural effusion. No pneumoth orax. Heart/Mediastinum: Cardiomediastinal silhouette is normal in size. Bones/joints: Cervical spine hardware seen. IMPRESSION: No acute findings. Raul West MD On 11/24/2021 01:50:09; VR-SGE [id number] 2021-11-24 PROCEDURE INFORMATION: [facility] :35:55-00:00 Exam: XR Chest Exam date and time: 11/24/2021 1:18 AM Age: 66 years old Clinical indication: /chest pain TECHNIQUE: Imaging protocol: Radiologic exam of the chest. Views: 1 view. COMPARISON: CR CHEST 1VIEW DX 04/09/2019 4:34 PM FINDINGS: Lungs: Left mid lung linear atelectasis or scarring. Lungs are otherwise clear. Pleural spaces: No pleural effusion. No pneumoth orax. Heart/Mediastinum: Cardiomediastinal silhouette is normal in size. Bones/joints: Cervical spine hardware seen. IMPRESSION: No acute findings. Raul West MD On 11/24/2021 01:50:09; VR-SGE [id number] 2021-11-24 PROCEDURE INFORMATION: [facility] :35:55-00:00 Exam: XR Chest Exam date and time: 11/24/2021 1:18 AM Age: 66 years old Clinical indication: /chest pain TECHNIQUE: Imaging protocol: Radiologic exam of the chest. Views: 1 view. COMPARISON: CR CHEST 1VIEW DX 04/09/2019 4:34 PM FINDINGS: Lungs: Left mid lung linear atelectasis or scarring. Lungs are otherwise clear. Pleural spaces: No pleural effusion. No pneumoth orax. Heart/Mediastinum: Cardiomediastinal silhouette is normal in size. Bones/joints: Cervical spine hardware seen. IMPRESSION: No acute findings. Raul West MD On 11/24/2021 01:50:09; VR-SGE [id number] 2021-11-24 PROCEDURE INFORMATION: [facility] :35:55-00:00 Exam: XR Chest Exam date and time: 11/24/2021 1:18 AM Age: 66 years old Clinical indication: /chest pain TECHNIQUE: Imaging protocol: Radiologic exam of the chest. Views: 1 view. COMPARISON: CR CHEST 1VIEW DX 04/09/2019 4:34 PM FINDINGS: Lungs: Left mid lung linear atelectasis or scarring. Lungs are otherwise clear. Pleural spaces: No pleural effusion. No pneumoth orax. Heart/Mediastinum: Cardiomediastinal silhouette is normal in size. Bones/joints: Cervical spine hardware seen. IMPRESSION: No acute findings. Raul West MD On 11/24/2021 01:50:09; VR-SGE [id number] 2021-11-24 PROCEDURE INFORMATION: [facility] :35:55-00:00 Exam: XR Chest Exam date and time: 11/24/2021 1:18 AM Age: 66 years old Clinical indication: /chest pain TECHNIQUE: Imaging protocol: Radiologic exam of the chest. Views: 1 view. COMPARISON: CR CHEST 1VIEW DX 04/09/2019 4:34 PM FINDINGS: Lungs: Left mid lung linear atelectasis or scarring. Lungs are otherwise clear. Pleural spaces: No pleural effusion. No pneumoth orax. Heart/Mediastinum: Cardiomediastinal silhouette is normal in size. Bones/joints: Cervical spine hardware seen. IMPRESSION: No acute findings. Raul West MD On 11/24/2021 01:50:09; VR-SGE [id number] 2021-11-24 PROCEDURE INFORMATION: [facility] :35:55-00:00 Exam: XR Chest Exam date and time: 11/24/2021 1:18 AM Age: 66 years old Clinical indication: /chest pain TECHNIQUE: Imaging protocol: Radiologic exam of the chest. Views: 1 view. COMPARISON: CR CHEST 1VIEW DX 04/09/2019 4:34 PM FINDINGS: Lungs: Left mid lung linear atelectasis or scarring. Lungs are otherwise clear. Pleural spaces: No pleural effusion. No pneumoth orax. Heart/Mediastinum: Cardiomediastinal silhouette is normal in size. Bones/joints: Cervical spine hardware seen. IMPRESSION: No acute findings. Raul West MD On 11/24/2021 01:50:09; VR-SGE [id number] 2021-11-24 PROCEDURE INFORMATION: [facility] 01:35:55-00:00 Exam: XR Chest Exam date and time: 11/24/2021 1:18 AM Age: 66 years old Clinical indication: /chest pain TECHNIQUE: Imaging protocol: Radiologic exam of the chest. Views: 1 view. COMPARISON: CR CHEST 1VIEW DX 04/09/2019 4:34 PM FINDINGS: Lungs: Left mid lung linear atelectasis or scarring. Lungs are otherwise clear. Pleural spaces: No pleural effusion. No pneumoth orax. Heart/Mediastinum: Cardiomediastinal silhouette is normal in size. Bones/joints: Cervical spine hardware seen. IMPRESSION: No acute findings. Raul West MD On 11/24/2021 01:50:09; RICKY [id number] 2021-11-24 PROCEDURE INFORMATION: [facility] :35:55-00:00 Exam: XR Chest Exam date and time: 11/24/2021 1:18 AM Age: 66 years old Clinical indication: /chest pain TECHNIQUE: Imaging protocol: Radiologic exam of the chest. Views: 1 view. COMPARISON: CR CHEST 1VIEW DX 04/09/2019 4:34 PM FINDINGS: Lungs: Left mid lung linear atelectasis or scarring. Lungs are otherwise clear. Pleural spaces: No pleural effusion. No pneumoth orax. Heart/Mediastinum: Cardiomediastinal silhouette is normal in size. Bones/joints: Cervical spine hardware seen. IMPRESSION: No acute findings. Raul West MD On 11/24/2021 01:50:09; VR-SGE [id number] 2021-11-24 PROCEDURE INFORMATION: [facility] :35:55-00:00 Exam: XR Chest Exam date and time: 11/24/2021 1:18 AM Age: 66 years old Clinical indication: /chest pain TECHNIQUE: Imaging protocol: Radiologic exam of the chest. Views: 1 view. COMPARISON: CR CHEST 1VIEW DX 04/09/2019 4:34 PM FINDINGS: Lungs: Left mid lung linear atelectasis or scarring. Lungs are otherwise clear. Pleural spaces: No pleural effusion. No pneumoth orax. Heart/Mediastinum: Cardiomediastinal silhouette is normal in size. Bones/joints: Cervical spine hardware seen. IMPRESSION: No acute findings. Raul West MD On 11/24/2021 01:50:09; GILLIANSGGiorgio [id number] 2021-11-24 PROCEDURE INFORMATION: [facility] :35:55-00:00 Exam: XR Chest Exam date and time: 11/24/2021 1:18 AM Age: 66 years old Clinical indication: /chest pain TECHNIQUE: Imaging protocol: Radiologic exam of the chest. Views: 1 view. COMPARISON: CR CHEST 1VIEW DX 04/09/2019 4:34 PM FINDINGS: Lungs: Left mid lung linear atelectasis or scarring. Lungs are otherwise clear. Pleural spaces: No pleural effusion. No pneumoth orax. Heart/Mediastinum: Cardiomediastinal silhouette is normal in size. Bones/joints: Cervical spine hardware seen. IMPRESSION: No acute findings. Raul Wset MD On 11/24/2021 01:50:09; GILLIANSGE [id number] 2021-11-24 PROCEDURE INFORMATION: [facility] :35:55-00:00 Exam: XR Chest Exam date and time: 11/24/2021 1:18 AM Age: 66 years old Clinical indication: /chest pain TECHNIQUE: Imaging protocol: Radiologic exam of the chest. Views: 1 view. COMPARISON: CR CHEST 1VIEW DX 04/09/2019 4:34 PM FINDINGS: Lungs: Left mid lung linear atelectasis or scarring. Lungs are otherwise clear. Pleural spaces: No pleural effusion. No pneumoth orax. Heart/Mediastinum: Cardiomediastinal silhouette is normal in size. Bones/joints: Cervical spine hardware seen. IMPRESSION: No acute findings. Raul West MD On 11/24/2021 01:50:09; VR-SGE [id number] 2021-11-24 PROCEDURE INFORMATION: [facility] :35:55-00:00 Exam: XR Chest Exam date and time: 11/24/2021 1:18 AM Age: 66 years old Clinical indication: /chest pain TECHNIQUE: Imaging protocol: Radiologic exam of the chest. Views: 1 view. COMPARISON: CR CHEST 1VIEW DX 04/09/2019 4:34 PM FINDINGS: Lungs: Left mid lung linear atelectasis or scarring. Lungs are otherwise clear. Pleural spaces: No pleural effusion. No pneumoth orax. Heart/Mediastinum: Cardiomediastinal silhouette is normal in size. Bones/joints: Cervical spine hardware seen. IMPRESSION: No acute findings. Raul West MD On 11/24/2021 01:50:09; HIRO-E [id number] 2021-11-24 PROCEDURE INFORMATION: [facility] 01:35:55-00:00 Exam: XR Chest Exam date and time: 11/24/2021 1:18 AM Age: 66 years old Clinical indication: /chest pain TECHNIQUE: Imaging protocol: Radiologic exam of the chest. Views: 1 view. COMPARISON: CR CHEST 1VIEW DX 04/09/2019 4:34 PM FINDINGS: Lungs: Left mid lung linear atelectasis or scarring. Lungs are otherwise clear. Pleural spaces: No pleural effusion. No pneumoth orax. Heart/Mediastinum: Cardiomediastinal silhouette is normal in size. Bones/joints: Cervical spine hardware seen. IMPRESSION: No acute findings. Raul West MD On 11/24/2021 01:50:09; VR-SGE [id number] 2021-11-24 Radiation Dose CTDIVOL = 0 (mGy): DLP = 965.4 (m Gy-cm) [facility] 00:23:19-00:00 PROCEDURE INFORMATION: Exam: CT Head Without Contrast Exam date and time: 11/24/2021 12:32 AM Age: 66 years old Clinical indication: /headache TECHNIQUE: Imaging protocol: Computed tomography of the hea d without contrast. Radiation optimization: All CT scans at this facility use at least one of these dose optimization techniques: automated exposure control; mA and/or kV adjustment per patient size (includes targeted e xams where dose is matched to clinical indication); or iterative reconstructio n. COMPARISON: BRAIN WO CONTRAST CT 10/12/2015 11:06 PM RADIATION DOSE METRICS: Total DLP (mGy-cm): 965.4 FINDINGS: Brain: There is mild diffuse cortical atrophy. 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 No evidence of extra-axial fluid collection or midline shift Cerebral ventricles: No ventriculomegaly. Paranasal sinuses: There is some polypoid mucosa l thickening involving maxillary sinuses bilaterally. Mastoid air cells: Visualized mastoid air cells are well aerated. Bones/joints: Unremarkable. No acute fracture. Soft tissues: Unremarkable. IMPRESSION: 1. Mild diffuse atrophy 2. 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 No evidence of acute intracranial pathology. Oscar Narvaez MD On 11/24/2021 01:41:29; [id number] 2021-11-24 Radiation Dose CTDIVOL = 0 (mGy): DLP = 965.4 (m Gy-cm) [facility] 00:23:19-00:00 PROCEDURE INFORMATION: Exam: CT Head Without Contrast Exam date and time: 11/24/2021 12:32 AM Age: 66 years old Clinical indication: /headache TECHNIQUE: Imaging protocol: Computed tomography of the hea d without contrast. Radiation optimization: All CT scans at this facility use at least one of these dose optimization techniques: automated exposure control; mA and/or kV adjustment per patient size (includes targeted e xams where dose is matched to clinical indication); or iterative reconstructio n. COMPARISON: BRAIN WO CONTRAST CT 10/12/2015 11:06 PM RADIATION DOSE METRICS: Total DLP (mGy-cm): 965.4 FINDINGS: Brain: There is mild diffuse cortical atrophy. 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 No evidence of extra-axial fluid collection or midline shift Cerebral ventricles: No ventriculomegaly. Paranasal sinuses: There is some polypoid mucosa l thickening involving maxillary sinuses bilaterally. Mastoid air cells: Visualized mastoid air cells are well aerated. Bones/joints: Unremarkable. No acute fracture. Soft tissues: Unremarkable. IMPRESSION: 1. Mild diffuse atrophy 2. 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 No evidence of acute intracranial pathology. Oscar Narvaez MD On 11/24/2021 01:41:29; [id number] 2021-11-24 Radiation Dose CTDIVOL = 0 (mGy): DLP = 965.4 (m Gy-cm) [facility] 00:23:19-00:00 PROCEDURE INFORMATION: Exam: CT Head Without Contrast Exam date and time: 11/24/2021 12:32 AM Age: 66 years old Clinical indication: /headache TECHNIQUE: Imaging protocol: Computed tomography of the hea d without contrast. Radiation optimization: All CT scans at this facility use at least one of these dose optimization techniques: automated exposure control; mA and/or kV adjustment per patient size (includes targeted e xams where dose is matched to clinical indication); or iterative reconstructio n. COMPARISON: BRAIN WO CONTRAST CT 10/12/2015 11:06 PM RADIATION DOSE METRICS: Total DLP (mGy-cm): 965.4 FINDINGS: Brain: There is mild diffuse cortical atrophy. 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 No evidence of extra-axial fluid collection or midline shift Cerebral ventricles: No ventriculomegaly. Paranasal sinuses: There is some polypoid mucosa l thickening involving maxillary sinuses bilaterally. Mastoid air cells: Visualized mastoid air cells are well aerated. Bones/joints: Unremarkable. No acute fracture. Soft tissues: Unremarkable. IMPRESSION: 1. Mild diffuse atrophy 2. 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 No evidence of acute intracranial pathology. Oscar Narvaez MD On 11/24/2021 01:41:29; [id number] 2021-11-24 Radiation Dose CTDIVOL = 0 (mGy): DLP = 965.4 (m Gy-cm) [facility] 00:23:19-00:00 PROCEDURE INFORMATION: Exam: CT Head Without Contrast Exam date and time: 11/24/2021 12:32 AM Age: 66 years old Clinical indication: /headache TECHNIQUE: Imaging protocol: Computed tomography of the hea d without contrast. Radiation optimization: All CT scans at this facility use at least one of these dose optimization techniques: automated exposure control; mA and/or kV adjustment per patient size (includes targeted e xams where dose is matched to clinical indication); or iterative reconstructio n. COMPARISON: BRAIN WO CONTRAST CT 10/12/2015 11:06 PM RADIATION DOSE METRICS: Total DLP (mGy-cm): 965.4 FINDINGS: Brain: There is mild diffuse cortical atrophy. 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 No evidence of extra-axial fluid collection or midline shift Cerebral ventricles: No ventriculomegaly. Paranasal sinuses: There is some polypoid mucosa l thickening involving maxillary sinuses bilaterally. Mastoid air cells: Visualized mastoid air cells are well aerated. Bones/joints: Unremarkable. No acute fracture. Soft tissues: Unremarkable. IMPRESSION: 1. Mild diffuse atrophy 2. 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 No evidence of acute intracranial pathology. Oscar Narvaez MD On 11/24/2021 01:41:29; [id number] 2021-11-24 Radiation Dose CTDIVOL = 0 (mGy): DLP = 965.4 (m Gy-cm) [facility] 00:23:19-00:00 PROCEDURE INFORMATION: Exam: CT Head Without Contrast Exam date and time: 11/24/2021 12:32 AM Age: 66 years old Clinical indication: /headache TECHNIQUE: Imaging protocol: Computed tomography of the hea d without contrast. Radiation optimization: All CT scans at this facility use at least one of these dose optimization techniques: automated exposure control; mA and/or kV adjustment per patient size (includes targeted e xams where dose is matched to clinical indication); or iterative reconstructio n. COMPARISON: BRAIN WO CONTRAST CT 10/12/2015 11:06 PM RADIATION DOSE METRICS: Total DLP (mGy-cm): 965.4 FINDINGS: Brain: There is mild diffuse cortical atrophy. 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 No evidence of extra-axial fluid collection or midline shift Cerebral ventricles: No ventriculomegaly. Paranasal sinuses: There is some polypoid mucosa l thickening involving maxillary sinuses bilaterally. Mastoid air cells: Visualized mastoid air cells are well aerated. Bones/joints: Unremarkable. No acute fracture. Soft tissues: Unremarkable. IMPRESSION: 1. Mild diffuse atrophy 2. 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 No evidence of acute intracranial pathology. Oscar Narvaez MD On 11/24/2021 01:41:29; [id number] 2021-11-24 Radiation Dose CTDIVOL = 0 (mGy): DLP = 965.4 (m Gy-cm) [facility] 00:23:19-00:00 PROCEDURE INFORMATION: Exam: CT Head Without Contrast Exam date and time: 11/24/2021 12:32 AM Age: 66 years old Clinical indication: /headache TECHNIQUE: Imaging protocol: Computed tomography of the hea d without contrast. Radiation optimization: All CT scans at this facility use at least one of these dose optimization techniques: automated exposure control; mA and/or kV adjustment per patient size (includes targeted e xams where dose is matched to clinical indication); or iterative reconstructio n. COMPARISON: BRAIN WO CONTRAST CT 10/12/2015 11:06 PM RADIATION DOSE METRICS: Total DLP (mGy-cm): 965.4 FINDINGS: Brain: There is mild diffuse cortical atrophy. 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 No evidence of extra-axial fluid collection or midline shift Cerebral ventricles: No ventriculomegaly. Paranasal sinuses: There is some polypoid mucosa l thickening involving maxillary sinuses bilaterally. Mastoid air cells: Visualized mastoid air cells are well aerated. Bones/joints: Unremarkable. No acute fracture. Soft tissues: Unremarkable. IMPRESSION: 1. Mild diffuse atrophy 2. 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 No evidence of acute intracranial pathology. Oscar Narvaez MD On 11/24/2021 01:41:29; [id number] 2021-11-24 Radiation Dose CTDIVOL = 0 (mGy): DLP = 965.4 (m Gy-cm) [facility] 00:23:19-00:00 PROCEDURE INFORMATION: Exam: CT Head Without Contrast Exam date and time: 11/24/2021 12:32 AM Age: 66 years old Clinical indication: /headache TECHNIQUE: Imaging protocol: Computed tomography of the hea d without contrast. Radiation optimization: All CT scans at this facility use at least one of these dose optimization techniques: automated exposure control; mA and/or kV adjustment per patient size (includes targeted e xams where dose is matched to clinical indication); or iterative reconstructio n. COMPARISON: BRAIN WO CONTRAST CT 10/12/2015 11:06 PM RADIATION DOSE METRICS: Total DLP (mGy-cm): 965.4 FINDINGS: Brain: There is mild diffuse cortical atrophy. 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 No evidence of extra-axial fluid collection or midline shift Cerebral ventricles: No ventriculomegaly. Paranasal sinuses: There is some polypoid mucosa l thickening involving maxillary sinuses bilaterally. Mastoid air cells: Visualized mastoid air cells are well aerated. Bones/joints: Unremarkable. No acute fracture. Soft tissues: Unremarkable. IMPRESSION: 1. Mild diffuse atrophy 2. 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 No evidence of acute intracranial pathology. Oscar Narvaez MD On 11/24/2021 01:41:29; [id number] 2021-11-24 Radiation Dose CTDIVOL = 0 (mGy): DLP = 965.4 (m Gy-cm) [facility] 00:23:19-00:00 PROCEDURE INFORMATION: Exam: CT Head Without Contrast Exam date and time: 11/24/2021 12:32 AM Age: 66 years old Clinical indication: /headache TECHNIQUE: Imaging protocol: Computed tomography of the hea d without contrast. Radiation optimization: All CT scans at this facility use at least one of these dose optimization techniques: automated exposure control; mA and/or kV adjustment per patient size (includes targeted e xams where dose is matched to clinical indication); or iterative reconstructio n. COMPARISON: BRAIN WO CONTRAST CT 10/12/2015 11:06 PM RADIATION DOSE METRICS: Total DLP (mGy-cm): 965.4 FINDINGS: Brain: There is mild diffuse cortical atrophy. 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 No evidence of extra-axial fluid collection or midline shift Cerebral ventricles: No ventriculomegaly. Paranasal sinuses: There is some polypoid mucosa l thickening involving maxillary sinuses bilaterally. Mastoid air cells: Visualized mastoid air cells are well aerated. Bones/joints: Unremarkable. No acute fracture. Soft tissues: Unremarkable. IMPRESSION: 1. Mild diffuse atrophy 2. 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 No evidence of acute intracranial pathology. Oscar Narvaez MD On 11/24/2021 01:41:29; [id number] 2021-11-24 Radiation Dose CTDIVOL = 0 (mGy): DLP = 965.4 (m Gy-cm) [facility] 00::19-00:00 PROCEDURE INFORMATION: Exam: CT Head Without Contrast Exam date and time: 11/24/2021 12:32 AM Age: 66 years old Clinical indication: /headache TECHNIQUE: Imaging protocol: Computed tomography of the hea d without contrast. Radiation optimization: All CT scans at this facility use at least one of these dose optimization techniques: automated exposure control; mA and/or kV adjustment per patient size (includes targeted e xams where dose is matched to clinical indication); or iterative reconstructio n. COMPARISON: BRAIN WO CONTRAST CT 10/12/2015 11:06 PM RADIATION DOSE METRICS: Total DLP (mGy-cm): 965.4 FINDINGS: Brain: There is mild diffuse cortical atrophy. 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 No evidence of extra-axial fluid collection or midline shift Cerebral ventricles: No ventriculomegaly. Paranasal sinuses: There is some polypoid mucosa l thickening involving maxillary sinuses bilaterally. Mastoid air cells: Visualized mastoid air cells are well aerated. Bones/joints: Unremarkable. No acute fracture. Soft tissues: Unremarkable. IMPRESSION: 1. Mild diffuse atrophy 2. 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 No evidence of acute intracranial pathology. Oscar Narvaez MD On 11/24/2021 01:41:29; [id number] 2021-11-24 Radiation Dose CTDIVOL = 0 (mGy): DLP = 965.4 (m Gy-cm) [facility] 00:23:19-00:00 PROCEDURE INFORMATION: Exam: CT Head Without Contrast Exam date and time: 11/24/2021 12:32 AM Age: 66 years old Clinical indication: /headache TECHNIQUE: Imaging protocol: Computed tomography of the hea d without contrast. Radiation optimization: All CT scans at this facility use at least one of these dose optimization techniques: automated exposure control; mA and/or kV adjustment per patient size (includes targeted e xams where dose is matched to clinical indication); or iterative reconstructio n. COMPARISON: BRAIN WO CONTRAST CT 10/12/2015 11:06 PM RADIATION DOSE METRICS: Total DLP (mGy-cm): 965.4 FINDINGS: Brain: There is mild diffuse cortical atrophy. 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 No evidence of extra-axial fluid collection or midline shift Cerebral ventricles: No ventriculomegaly. Paranasal sinuses: There is some polypoid mucosa l thickening involving maxillary sinuses bilaterally. Mastoid air cells: Visualized mastoid air cells are well aerated. Bones/joints: Unremarkable. No acute fracture. Soft tissues: Unremarkable. IMPRESSION: 1. Mild diffuse atrophy 2. 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 No evidence of acute intracranial pathology. Oscar Narvaez MD On 11/24/2021 01:41:29; [id number] 2021-11-24 Radiation Dose CTDIVOL = 0 (mGy): DLP = 965.4 (m Gy-cm) [facility] 00:23:19-00:00 PROCEDURE INFORMATION: Exam: CT Head Without Contrast Exam date and time: 11/24/2021 12:32 AM Age: 66 years old Clinical indication: /headache TECHNIQUE: Imaging protocol: Computed tomography of the hea d without contrast. Radiation optimization: All CT scans at this facility use at least one of these dose optimization techniques: automated exposure control; mA and/or kV adjustment per patient size (includes targeted e xams where dose is matched to clinical indication); or iterative reconstructio n. COMPARISON: BRAIN WO CONTRAST CT 10/12/2015 11:06 PM RADIATION DOSE METRICS: Total DLP (mGy-cm): 965.4 FINDINGS: Brain: There is mild diffuse cortical atrophy. 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 No evidence of extra-axial fluid collection or midline shift Cerebral ventricles: No ventriculomegaly. Paranasal sinuses: There is some polypoid mucosa l thickening involving maxillary sinuses bilaterally. Mastoid air cells: Visualized mastoid air cells are well aerated. Bones/joints: Unremarkable. No acute fracture. Soft tissues: Unremarkable. IMPRESSION: 1. Mild diffuse atrophy 2. 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 No evidence of acute intracranial pathology. Oscar Nravaez MD On 11/24/2021 01:41:29; [id number] 2021-11-24 Radiation Dose CTDIVOL = 0 (mGy): DLP = 965.4 (m Gy-cm) [facility] 00:23:19-00:00 PROCEDURE INFORMATION: Exam: CT Head Without Contrast Exam date and time: 11/24/2021 12:32 AM Age: 66 years old Clinical indication: /headache TECHNIQUE: Imaging protocol: Computed tomography of the hea d without contrast. Radiation optimization: All CT scans at this facility use at least one of these dose optimization techniques: automated exposure control; mA and/or kV adjustment per patient size (includes targeted e xams where dose is matched to clinical indication); or iterative reconstructio n. COMPARISON: BRAIN WO CONTRAST CT 10/12/2015 11:06 PM RADIATION DOSE METRICS: Total DLP (mGy-cm): 965.4 FINDINGS: Brain: There is mild diffuse cortical atrophy. 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 No evidence of extra-axial fluid collection or midline shift Cerebral ventricles: No ventriculomegaly. Paranasal sinuses: There is some polypoid mucosa l thickening involving maxillary sinuses bilaterally. Mastoid air cells: Visualized mastoid air cells are well aerated. Bones/joints: Unremarkable. No acute fracture. Soft tissues: Unremarkable. IMPRESSION: 1. Mild diffuse atrophy 2. 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 No evidence of acute intracranial pathology. Oscar Narvaez MD On 11/24/2021 01:41:29; [id number] 2021-11-24 Radiation Dose CTDIVOL = 0 (mGy): DLP = 965.4 (m Gy-cm) [facility] 00:23:19-00:00 PROCEDURE INFORMATION: Exam: CT Head Without Contrast Exam date and time: 11/24/2021 12:32 AM Age: 66 years old Clinical indication: /headache TECHNIQUE: Imaging protocol: Computed tomography of the hea d without contrast. Radiation optimization: All CT scans at this facility use at least one of these dose optimization techniques: automated exposure control; mA and/or kV adjustment per patient size (includes targeted e xams where dose is matched to clinical indication); or iterative reconstructio n. COMPARISON: BRAIN WO CONTRAST CT 10/12/2015 11:06 PM RADIATION DOSE METRICS: Total DLP (mGy-cm): 965.4 FINDINGS: Brain: There is mild diffuse cortical atrophy. 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 No evidence of extra-axial fluid collection or midline shift Cerebral ventricles: No ventriculomegaly. Paranasal sinuses: There is some polypoid mucosa l thickening involving maxillary sinuses bilaterally. Mastoid air cells: Visualized mastoid air cells are well aerated. Bones/joints: Unremarkable. No acute fracture. Soft tissues: Unremarkable. IMPRESSION: 1. Mild diffuse atrophy 2. 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 No evidence of acute intracranial pathology. Oscar Narvaez MD On 11/24/2021 01:41:29; [id number] 2021-11-24 Radiation Dose CTDIVOL = 0 (mGy): DLP = 965.4 (m Gy-cm) [facility] 00:23:19-00:00 PROCEDURE INFORMATION: Exam: CT Head Without Contrast Exam date and time: 11/24/2021 12:32 AM Age: 66 years old Clinical indication: /headache TECHNIQUE: Imaging protocol: Computed tomography of the hea d without contrast. Radiation optimization: All CT scans at this facility use at least one of these dose optimization techniques: automated exposure control; mA and/or kV adjustment per patient size (includes targeted e xams where dose is matched to clinical indication); or iterative reconstructio n. COMPARISON: BRAIN WO CONTRAST CT 10/12/2015 11:06 PM RADIATION DOSE METRICS: Total DLP (mGy-cm): 965.4 FINDINGS: Brain: There is mild diffuse cortical atrophy. 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 No evidence of extra-axial fluid collection or midline shift Cerebral ventricles: No ventriculomegaly. Paranasal sinuses: There is some polypoid mucosa l thickening involving maxillary sinuses bilaterally. Mastoid air cells: Visualized mastoid air cells are well aerated. Bones/joints: Unremarkable. No acute fracture. Soft tissues: Unremarkable. IMPRESSION: 1. Mild diffuse atrophy 2. 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 No evidence of acute intracranial pathology. Oscar Narvaez MD On 11/24/2021 01:41:29; [id number] 2021-11-24 Radiation Dose CTDIVOL = 0 (mGy): DLP = 965.4 (m Gy-cm) [facility] 00:23:19-00:00 PROCEDURE INFORMATION: Exam: CT Head Without Contrast Exam date and time: 11/24/2021 12:32 AM Age: 66 years old Clinical indication: /headache TECHNIQUE: Imaging protocol: Computed tomography of the hea d without contrast. Radiation optimization: All CT scans at this facility use at least one of these dose optimization techniques: automated exposure control; mA and/or kV adjustment per patient size (includes targeted e xams where dose is matched to clinical indication); or iterative reconstructio n. COMPARISON: BRAIN WO CONTRAST CT 10/12/2015 11:06 PM RADIATION DOSE METRICS: Total DLP (mGy-cm): 965.4 FINDINGS: Brain: There is mild diffuse cortical atrophy. 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 No evidence of extra-axial fluid collection or midline shift Cerebral ventricles: No ventriculomegaly. Paranasal sinuses: There is some polypoid mucosa l thickening involving maxillary sinuses bilaterally. Mastoid air cells: Visualized mastoid air cells are well aerated. Bones/joints: Unremarkable. No acute fracture. Soft tissues: Unremarkable. IMPRESSION: 1. Mild diffuse atrophy 2. 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 No evidence of acute intracranial pathology. Oscar Narvaez MD On 11/24/2021 01:41:29; [id number] 2021-11-24 Radiation Dose CTDIVOL = 0 (mGy): DLP = 965.4 (m Gy-cm) [facility] 00:23:19-00:00 PROCEDURE INFORMATION: Exam: CT Head Without Contrast Exam date and time: 11/24/2021 12:32 AM Age: 66 years old Clinical indication: /headache TECHNIQUE: Imaging protocol: Computed tomography of the hea d without contrast. Radiation optimization: All CT scans at this facility use at least one of these dose optimization techniques: automated exposure control; mA and/or kV adjustment per patient size (includes targeted e xams where dose is matched to clinical indication); or iterative reconstructio n. COMPARISON: BRAIN WO CONTRAST CT 10/12/2015 11:06 PM RADIATION DOSE METRICS: Total DLP (mGy-cm): 965.4 FINDINGS: Brain: There is mild diffuse cortical atrophy. 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 No evidence of extra-axial fluid collection or midline shift Cerebral ventricles: No ventriculomegaly. Paranasal sinuses: There is some polypoid mucosa l thickening involving maxillary sinuses bilaterally. Mastoid air cells: Visualized mastoid air cells are well aerated. Bones/joints: Unremarkable. No acute fracture. Soft tissues: Unremarkable. IMPRESSION: 1. Mild diffuse atrophy 2. 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 No evidence of acute intracranial pathology. Oscar Narvaez MD On 11/24/2021 01:41:29; [id number] 2021-11-24 Radiation Dose CTDIVOL = 0 (mGy): DLP = 965.4 (m Gy-cm) [facility] 00:23:19-00:00 PROCEDURE INFORMATION: Exam: CT Head Without Contrast Exam date and time: 11/24/2021 12:32 AM Age: 66 years old Clinical indication: /headache TECHNIQUE: Imaging protocol: Computed tomography of the hea d without contrast. Radiation optimization: All CT scans at this facility use at least one of these dose optimization techniques: automated exposure control; mA and/or kV adjustment per patient size (includes targeted e xams where dose is matched to clinical indication); or iterative reconstructio n. COMPARISON: BRAIN WO CONTRAST CT 10/12/2015 11:06 PM RADIATION DOSE METRICS: Total DLP (mGy-cm): 965.4 FINDINGS: Brain: There is mild diffuse cortical atrophy. 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 No evidence of extra-axial fluid collection or midline shift Cerebral ventricles: No ventriculomegaly. Paranasal sinuses: There is some polypoid mucosa l thickening involving maxillary sinuses bilaterally. Mastoid air cells: Visualized mastoid air cells are well aerated. Bones/joints: Unremarkable. No acute fracture. Soft tissues: Unremarkable. IMPRESSION: 1. Mild diffuse atrophy 2. 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 No evidence of acute intracranial pathology. Oscar Narvaez MD On 11/24/2021 01:41:29; [id number] 2021-11-24 Radiation Dose CTDIVOL = 0 (mGy): DLP = 965.4 (m Gy-cm) [facility] 00:23:19-00:00 PROCEDURE INFORMATION: Exam: CT Head Without Contrast Exam date and time: 11/24/2021 12:32 AM Age: 66 years old Clinical indication: /headache TECHNIQUE: Imaging protocol: Computed tomography of the hea d without contrast. Radiation optimization: All CT scans at this facility use at least one of these dose optimization techniques: automated exposure control; mA and/or kV adjustment per patient size (includes targeted e xams where dose is matched to clinical indication); or iterative reconstructio n. COMPARISON: BRAIN WO CONTRAST CT 10/12/2015 11:06 PM RADIATION DOSE METRICS: Total DLP (mGy-cm): 965.4 FINDINGS: Brain: There is mild diffuse cortical atrophy. 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 No evidence of extra-axial fluid collection or midline shift Cerebral ventricles: No ventriculomegaly. Paranasal sinuses: There is some polypoid mucosa l thickening involving maxillary sinuses bilaterally. Mastoid air cells: Visualized mastoid air cells are well aerated. Bones/joints: Unremarkable. No acute fracture. Soft tissues: Unremarkable. IMPRESSION: 1. Mild diffuse atrophy 2. 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 No evidence of acute intracranial pathology. Oscar Narvaez MD On 11/24/2021 01:41:29; [id number] 2019-08-29 [facility] 16:18:00-00:00 [facility] ([facility]) Hospitalist Discharge Summary REPORT#:[id number] REPORT STATUS: Signed DATE:08/29/19 TIME: 1617 PATIENT: HARLEEN ALICEA UNIT #: [id number] ROOM/BED: [place] [id number] : 53 AGE: 64 SEX: F ATTEND: Kika Bowers MD ADM AUTHOR: Olena Bowers MD * ALL edits or amendments must be made on the [employer]/computer document * PCP PCP PCP: PCP: No Primary or Family Physician Discharge to: [facility] General Information Discharge date: 07/22/19 Admission diagnosis: covid Discharge diagnosis: covid Hospital course: 1. COVID19 PNA Hypoxia - wean O2 as tolerated - was tested at [facility] outpatient cli leela and was positive on 07/11 - symptomatic treatment - levaquin -Very slow to respond and improve. - Clinically worse. Repeat CXR worse. Pt will be transferred to ICU for closer monitoring. On Plaquinil and Zinc. 2. Leukocytosis - UA pending - May need abx as the CXR shows possible consoli dation 07/17 decompensated today, now on NRB continue current care 07/18 on NRB but saturating very well, can wean O2 will hold off on consulting pulm at this time repeat CXR today lab work today and replace electrolytes as neede d 07/19 Pt continues with SOB, CXR shows worsening. Will ask pulm to see. 07/20 Very slow to improve and very weak. Will as k for rehab to see. 07/21 Worse, on plaquinil and Zinc. To ICU for cl oser monitoring. Discharge Instructions Discharge management: greater than 30 mins Objective Physical Exam General appearance: alert, awake, oriented Head/Eyes: atraumatic, EOMI, PERRL ENT: moist mucosal membranes, normal ear left, n ormal ear right Cardiovascular: normal capillary refill, normal heart sounds, regular rate rhythm Respiratory: hypoxia, aerating well, symmetric e xpansion Abdomen: normal bowel sounds, soft, no distentio n Extremities: moves all, no cyanosis, no edema Musculoskeletal: normal inspection, no muscle sp asm Neuro/METAL SOLDERER: alert, oriented X 3, CNII-XII intact, normal speech Skin: dry, normal temperature, no rash Psychiatry: normal affect, normal mood Electronically Signed by Olena Bowers MD on at 1621 [facility] #:[id number] END OF REPORT 2019-07-22 [facility] 13:38:00-00:00 [facility] ([facility]) Hospitalist Progress Note REPORT#:[id number] REPORT STATUS: Signed DATE:07/22/19 TIME: 1338 PATIENT: HARLEEN ALICEA UNIT #: [id number] ROOM/BED: [place] [id number] : 53 AGE: 64 SEX: F ATTEND: Kika Bowers MD ADM AUTHOR: Santiago Ashton * ALL edits or amendments must be made on the [employer]/computer document * Subjective Chief Complaint: Feeling worse today from yesterday. Still on NRB but O2 sat 99% asking for potassium Patient reports: Yes: chest pain (With inspir ation), chills, cough, pain controlled, shortness of breath. No: abdominal pain, constipation , diarrhea, dizziness, feeling better, headache, nausea, vomiting. Free Text Subj Notes Free Subj Notes: Pt CXR worse and clinically she is worse. Review of Systems Constitutional: Reports: fever, generalized weakness. Denies: ch ills, fatigue. Skin: Denies: abrasion, diaphoresis, ecchymosis. Allergy/Immun: Denies: allergic reaction, itching, rhinorrhea. Respiratory: Reports: PARRA (dyspnea on exertion), SOB. Denies: pleuritic pain, productive cough (sputum). Cardiovascular: Denies: chest pain, edema, orthopnea. GI: Denies: abdominal pain, anorexia, nausea. : Denies: dysuria, flank pain, frequency. Musculoskeletal: Denies: arthritis, extremity pain, extremity swe lling. Neuro: Denies: bladder dysfunction, change in LOC, conf usion. Objective General VS/I O: Vital Signs: Date Time Temp Pulse Resp B/P B/P Pulse O2 O2 F low FiO2 Mean Ox Delivery Rate 07/21 1204 97.7 100 18 123/70 87.2 93 Simple mask 07/21 0740 90 Non 15.488664 100 rebreather mask 07/21 0732 98.4 97 18 127/71 89.6 90 Simple mask 07/21 0336 99.0 93 20 132/70 90.6 96 Simple mask 07/21 0024 Non 15.546944 rebreather mask 07/20 2305 98.6 95 20 131/64 86.1 97 Nasal cannula 07/20 2111 93 Nasal 7.991066 cannula 07/20 1852 98.2 96 20 143/75 97.7 93 Nasal cannula 07/20 1612 98.2 95 18 129/74 92.6 94 Room air 24 hour I O ending at 0700: 07/21 0700 07/20 1900 Intake Total 240 480 Output Total Balance 240 480 Intake, Oral 240 480 Number 1 2 Bowel Movements Number 2 Incontinent Voids Number Voids 2 Patient Weight Weight (lb): Weight (oz): Weight (kg): 80.900 Physical Exam General appearance: alert, awake, oriented, no a cute distress Head/Eyes: atraumatic, EOMI, PERRL ENT: moist mucosal membranes, normal ear left, n ormal ear right Cardiovascular: normal capillary refill, normal heart sounds, regular rate rhythm Respiratory: hypoxia, aerating well, symmetric e xpansion Abdomen: normal bowel sounds, soft, no distentio n Extremities: moves all, no cyanosis, no edema Musculoskeletal: normal inspection, no muscle sp asm Neuro/METAL SOLDERER: alert, oriented X 3, CNII-XII intact, normal speech Skin: dry, normal temperature, no rash Psychiatry: normal affect, normal mood Results Findings/Data: Laboratory Tests 07/21 07/21 07/21 1045 1045 0514 Chemistry Sodium (134.0 - 147.0 mmol/l) 138 Potassium (3.6 - 5.2 mmol/L) 3.2 L Chloride (98.0 - 107.0 mmol/l) 98 Carbon Dioxide (21.0 - 33.0 mmol/l) 32.5 Anion Gap (0 - 20) 10.7 BUN (7.0 - 18.0 mg/dl) 17 Creatinine (0.60 - 1.30 mg/dL) 0.64 Est GFR ( Amer) (97 - 109 mL/min) 119 H Est GFR (Non-Af Amer) (80 - 90 mL/min) 98 H Glucose (70.0 - 110.0 mg/dl) 117 H Calcium (8.0 - 10.5 mg/dl) 8.5 Magnesium (1.8 - 2.4 mg/dl) 1.7 L Ferritin (11.0 - 306.8 ng/mL) 798 H Total Bilirubin (0.0 - 1.0 mg/dl) 0.3 AST (15.0 - 37.0 Units/L) 32 ALT (12.0 - 78.0 Units/L) 28 Total Alk Phosphatase (50.0 - 136.0 Units/L) 94 Lactate Dehydrogenase (81 - 234 Units/L) 402 H C-Reactive Protein (0.0 - 0.9 mg/dL) 23.2 H Total Protein (6.0 - 8.1 GM/DL) 7.5 Albumin (3.2 - 4.7 gm/dL) 1.9 L Laboratory Tests 07/21 1045 Coagulation D-Dimer (200.0 - 230.0 ng/mL) 904 H Laboratory Tests 07/21 0545 Hematology WBC (4.5 - 11.0 K/mm3) 14.3 H RBC (3.80 - 5.20 M/mm3) 3.97 Hgb (12.0 - 16.0 gm/dL) 11.8 L Hct (36.0 - 48.0 %) 35.2 L MCV (82.0 - 99.0 UM3) 88.7 MCH (25.5 - 32.5 UUG) 29.7 MCHC (29.0 - 35.5 gm/dL) 33.5 RDW (11.5 - 15.0 %) 11.6 Plt Count (150 - 400 K/mm3) 386 MPV (7.4 - 10.4 fl) 9.2 Neut % (Auto) (49.0 - 76.0 %) 85.8 H Lymph % (Auto) (23.0 - 38.0 %) 6.2 L [place] % (Auto) (1.0 - 10.0 %) 4.5 Eos % (Auto) (1.0 - 5.0 %) 1.1 Baso % (Auto) (0.0 - 1.0 %) 0.3 Neut # (Auto) (2.4 - 6.3 K/mm3) 12.3 H Lymph # (Auto) (1.2 - 4.0 K/mm3) 0.9 L [place] # (Auto) (0.0 - 0.6 K/mm3) 0.7 H Eos # (Auto) (0.0 - 0.7 K/MM3) 0.2 Baso # (Auto) (0.0 - 0.2 K/mm3) 0.0 Immature Gran % (0.0 - 0.4 %) 2.1 H Immature Gran # (0.00 - 0.07 x10 3/uL) 0.30 H Diagnosis, Assessment Plan Hospital course to date: 1. COVID19 PNA Hypoxia - wean O2 as tolerated - was tested at [facility] outpatient cli leela and was positive on 07/11 - symptomatic treatment - levaquin -Very slow to respond and improve. - Clinically worse. Repeat CXR worse. Pt will be transferred to ICU for closer monitoring. On Plaquinil and Zinc. 2. Leukocytosis - UA pending - May need abx as the CXR shows possible consoli dation 07/17 decompensated today, now on NRB continue current care 07/18 on NRB but saturating very well, can wean O2 will hold off on consulting pulm at this time repeat CXR today lab work today and replace electrolytes as neede d 07/19 Pt continues with SOB, CXR shows worsening. Will ask pulm to see. 07/20 Very slow to improve and very weak. Will as k for rehab to see. 07/21 Worse, on plaquinil and Zinc. To ICU for cl oser monitoring. Plan discussed with: patient, nurse Electronically Signed by Santiago Ashton on 0 07/22/19 at 1341 RPT #:[id number] END OF REPORT 2019-07-22 [facility] 13:30:00-00:00 [facility] ([facility]) Clinical Note REPORT#:[id number] REPORT STATUS: Signed DATE:07/22/19 TIME: 1330 PATIENT: HARLEEN ALICEA UNIT #: [id number] ROOM/BED: [place] [address] : 53 AGE: 64 SEX: F ATTEND: Kika Bowers MD ADM AUTHOR: Florencio Barry MD * ALL edits or amendments must be made on the [employer] document * Clinical Note Note: tried to see patient for rehab eval but ipad not functional so unable to contact. patient howerver to be transfered to [facility] for increased respiratory distress so will hold off for now. at 1331 RPT #:[id number] END OF REPORT 2019-07-22 [facility] 10:09:00-00:00 [facility] ([facility] Pulmonology Progress Note REPORT#:[id number] REPORT STATUS: Signed DATE:07/22/19 TIME: 1009 PATIENT: HARLEEN ALICEA UNIT #: [id number] ROOM/BED: [place] [address] : 53 AGE: 64 SEX: F ATTEND: Kika Bowers MD ADM AUTHOR: Lai Back MD * ALL edits or amendments must be made on the [employer] document * Subjective Chief Complaint: sob Comments: Looks about the same Tolerating diet Remains on nonrebreather ROS: no nausea/vomitting or chest pain Objective Physical Exam VS/I O: Last Documented: Result Date Time Pulse Ox 90 07/21 0740 FiO2 100 07/21 0740 O2 Delivery Non rebreather mask 07/21 0740 O2 Flow Rate 15.474408 07/21 0740 B/P 127/71 07/21 0732 B/P Mean 89.6 07/21 0732 Temp 98.4 07/21 0732 Pulse 97 07/21 0732 Resp 18 07/21 0732 24 hour I O ending at 0700: 07/20 1900 07/21 0700 Intake Total 480 240 Output Total Balance 480 240 Intake, Oral 480 240 Number 2 1 Bowel Movements Number 2 Incontinent Voids Number Voids 2 Patient Weight Weight (lb): Weight (oz): Weight (kg): 80.900 General appearance: chronically ill appearing Head/eyes: atraumatic, normocephalic, PERRL, EOM I, clear cornea, normal conjunctiva/sclera, normal fundi, normal eyelids /periorb. Neck: full range of motion, non-tender, normal thyroid, supple/no meningismus, no bruit/NL carotids, no JVD, no lymphadenopathy Cardiovascular: regular rate rhythm Respiratory/chest: crackles, decreased breath so unds Abdomen: soft, non-tender, n o distention, no guarding, no mass/organomegaly, no rebound Extremities: moves all, normal capillary refill, no edema Musculoskeletal: full range of motion, normal in spection Neuro/METAL SOLDERER: alert, oriented X 3 Skin: dry, intact Lymphatics: axilla normal, inguinal normal, neck normal, no lymphadenopathy Psychiatry: normal affect, n ormal judgment/insight, normal mood, not homicidal, not suicidal, no hallucinations Results Results: labs reviewed, vital signs stable Diagnosis, Assessment Plan Free Text A P: 1. COVID pneumonia -lymphopenic -Worsening oxygenation -Add hydroxychloroquine and zinc -Keep dry-> add furosemide 2. Acute hypoxemic respiratory failure -supplemental oxygen, wean as tolerated -consider steroids if any worsening -Worsening -Chest x-ray worse 3. HTN -cont home medication (including HCTZ/lisinopril ) 4. Type 2 diabetes mellitus -FSBG/SSI -on oral agents for chronic maintenance 5. Severe protein-calorie malnutrition -significant proteinuria (diabetic nephropathy?) -add nutritional supplements Transfer to the ICU, negative pressure r oom in case heated high flow necessary Electronically Signed by Lai Back MD on 06/29 07/17 at 1011 [facility] #:[id number] END OF REPORT 2019-07-21 [facility] 14:16:00-00:00 [facility] ([facility]) Hospitalist Progress Note REPORT#:[id number] REPORT STATUS: Signed DATE:07/21/19 TIME: 141 PATIENT: HARLEEN ALICEA UNIT #: [id number] ROOM/BED: [place] [address] : 53 AGE: 64 SEX: F ATTEND: Kika Bowers MD ADM AUTHOR: Santiago Ashton * ALL edits or amendments must be made on the el [employer]/computer document * Subjective Chief Complaint: Feeling worse today from yesterday. Still on NRB but O2 sat 99% asking for potassium Patient reports: Yes: cough, pain, pain contr olled, resting comfortably, shortness of breath. No : abdominal pain, chest pain , chills, constipation, diarrhea, dizziness, feeling better, fever, headache, nausea, vomiting. Review of Systems Constitutional: Reports: fever, generalized weakness. Denies: ch ills, fatigue. Skin: Denies: abrasion, diaphoresis, ecchymosis. Allergy/Immun: Denies: allergic reaction, itching, rhinorrhea. Respiratory: Reports: PARRA (dyspnea on exertion), SOB. Denies: pleuritic pain, productive cough (sputum). Cardiovascular: Denies: chest pain, edema, orthopnea. GI: Denies: abdominal pain, anorexia, nausea. : Denies: dysuria, flank pain, frequency. Musculoskeletal: Denies: arthritis, extremity pain, extremity swe lling. Neuro: Denies: bladder dysfunction, change in LOC, conf usion. Objective General VS/I O: Vital Signs: Date Time Temp Pulse Resp B/P B/P Pulse O2 O2 Flow FiO2 Mean Ox Delivery Rate 07/20 1152 98.4 101 18 136/78 97.6 91 Nasal cannula 07/20 1010 Nasal 7.268774 cannula 07/20 0853 92 Nasal 7.755526 cannula 07/20 0710 97.9 83 18 143/71 95.3 91 Nasal cannula 07/20 0322 98.4 91 18 133/70 91.0 77 Nasal cannula 07/19 2333 98.1 94 18 153/71 98.8 89 Nasal cannula 07/19 2245 Non 7.776767 rebreather mask 07/19 1851 99.0 88 17 133/72 92.5 93 Nasal cannula 07/19 1551 98.4 85 18 136/59 84.5 96 Nasal cannula 24 hour I O ending at 0700: 07/20 0700 07/19 1900 Intake Total 240 240 Output Total Balance 240 240 Intake, Oral 240 240 Number Voids 2 Patient Weight Weight (lb): Weight (oz): Weight (kg): 80.900 Physical Exam General appearance: alert, awake, no acute distr ess, Continues to look ill Head/Eyes: atraumatic, EOMI, PERRL ENT: moist mucosal membranes, normal ear left, n ormal ear right Cardiovascular: normal capillary refill, normal heart sounds, regular rate rhythm Respiratory: hypoxia, aerating well, symmetric e xpansion Abdomen: normal bowel sounds, soft, no distentio n Extremities: moves all, no cyanosis, no edema Musculoskeletal: normal inspection, no muscle sp asm Neuro/METAL SOLDERER: alert, oriented X 3, CNII-XII intact, normal speech Skin: dry, normal temperature, no rash Psychiatry: normal affect, normal mood Results Findings/Data: Laboratory Tests 07/20 529 Chemistry Sodium (134.0 - 147.0 mmol/l) 140 Potassium (3.6 - 5.2 mmol/L) 3.5 L Chloride (98.0 - 107.0 mmol/l) 99 Carbon Dioxide (21.0 - 33.0 mmol/l) 32.1 Anion Gap (0 - 20) 12.4 BUN (7.0 - 18.0 mg/dl) 15 Creatinine (0.60 - 1.30 mg/dL) 0.61 Est GFR ( Amer) (97 - 109 mL/min) 126 H Est GFR (Non-Af Amer) (80 - 90 mL/min) 104 H Glucose (70.0 - 110.0 mg/dl) 128 H Calcium (8.0 - 10.5 mg/dl) 8.6 Magnesium (1.8 - 2.4 mg/dl) 1.6 L Total Bilirubin (0.0 - 1.0 mg/dl) 0.3 AST (15.0 - 37.0 Units/L) 33 ALT (12.0 - 78.0 Units/L) 31 Total Alk Phosphatase (50.0 - 136.0 Units/L) 97 Total Protein (6.0 - 8.1 GM/DL) 7.2 Albumin (3.2 - 4.7 gm/dL) 1.9 L Laboratory Tests 07/20 05 Hematology WBC (4.5 - 11.0 K/mm3) 12.2 H RBC (3.80 - 5.20 M/mm3) 3.82 Hgb (12.0 - 16.0 gm/dL) 11.2 L Hct (36.0 - 48.0 %) 33.9 L MCV (82.0 - 99.0 UM3) 88.7 MCH (25.5 - 32.5 UUG) 29.3 MCHC (29.0 - 35.5 gm/dL) 33.0 RDW (11.5 - 15.0 %) 11.5 Plt Count (150 - 400 K/mm3) 329 MPV (7.4 - 10.4 fl) 9.2 Neut % (Auto) (49.0 - 76.0 %) 83.3 H Lymph % (Auto) (23.0 - 38.0 %) 7.2 L [place] % (Auto) (1.0 - 10.0 %) 6.7 Eos % (Auto) (1.0 - 5.0 %) 0.7 L Baso % (Auto) (0.0 - 1.0 %) 0.3 Neut # (Auto) (2.4 - 6.3 K/mm3) 10.1 H Lymph # (Auto) (1.2 - 4.0 K/mm3) 0.9 L [place] # (Auto) (0.0 - 0.6 K/mm3) 0.8 H Eos # (Auto) (0.0 - 0.7 K/MM3) 0.1 Baso # (Auto) (0.0 - 0.2 K/mm3) 0.0 Immature Gran % (0.0 - 0.4 %) 1.8 H Immature Gran # (0.00 - 0.07 x10 3/uL) 0.22 H Diagnosis, Assessment Plan Hospital course to date: 1. COVID19 PNA Hypoxia - wean O2 as tolerated - was tested at [facility] outpatient cli leela and was positive on 07/11 - symptomatic treatment - levaquin -Very slow to respond and improve. 2. Leukocytosis - UA pending - may need abx as the CXR shows possible consoli dation 07/17 decompensated today, now on NRB continue current care 07/18 on NRB but saturating very well, can wean O2 will hold off on consulting pulm at this time repeat CXR today lab work today and replace electrolytes as neede d 07/19 Pt continues with SOB, CXR shows worsening. Will ask pulm to see. 07/20 Very slow to improve and very weak. Will as k for rehab to see. Electronically Signed by Santiago Ashton on 0 07/21/19 at 1419 RPT #:[id number] END OF REPORT 2019-07-21 [facility] 12:35:00-00:00 [facility] ([facility]) Pulmonary Consultation Note REPORT#:[id number] REPORT STATUS: Signed DATE:07/21/19 TIME: 1235 PATIENT: HARLEEN ALICEA UNIT #: [id number] ROOM/BED: [facility] : 53 AGE: 64 SEX: F ATTEND: Vianca Bowers MD ADM AUTHOR: Christopher Mello MD * ALL edits or amendments must be made on the [employer]/computer document * History of Present Illness HPI Chief complaint: Shortness of breath. Free Text HPI Notes Free Text HPI Notes: The patient is a 64-year-old woman who was trans ferred to our facility from a hospital in [place] early the morning of A pril 19. Upon arrival at that facility her oxygen saturation was 89% on room air. She r eports a history of hypertension and diabetes mellitus and i ndicated for several days she had been experiencing fever, weakness and shortness of br eath. She comes from home, where she lives with her . She has had no ill contacts. Chest x-ray showed multifocal interstitial pneumonia, and warren bsequent COVID testing was positive. She was treated with supplem ental oxygen, but yesterday was developing worsening shortness of breath and oxygen requirement. Her oxygen flow was increased to nonrebreather mask at 15 L/m in, with chest x-ray showing worsening infiltrates. Pulmonary consultation was requested for further evaluation. At my evaluation this morning, she is no t in any distress. She has been weaned back to supplemental oxygen 7 L/min nasal cannul a with oxygen saturations recorded between 91 and 94%. There is 1 oxygen s aturation of 77% that was recorded in the overnight hours. She still has s ome cough with sputum production. She has had no hemoptysis. Past medical history: Hypertension Diabetes mellitus. Social history: She has never smoked. No ethanol nor illicit substances. . Family history: Noncontributory. Review of systems: General: She reports fevers without chills. No r ecent weight loss. Eyes: No recent visual change, redness, discharg e. ENT: No recent hearing loss, nasal conge stion, sinus problems, or sore throat. Respiratory: See HPI. Cardiovascular: No chest pain, palpitations, ort hopnea, paroxysmal nocturnal dyspnea. Gastrointestinal: No nausea, vomiting, diarrhea. Genitourinary: No dysuria, urgency, or hematuria . Musculoskeletal: No arthralgias, myalgias, joint pain or swelling. Hematologic: No recent history of bleeding, brui sing, or adenopathy. Endocrine: No heat or cold intolerance. No recen t weight change. No palpitations. Neurologic: No seizures, syncope, or focal weakn ess. Psychiatric: No anxiety, agitation, depression, or confusion. Skin: No rash, swelling, bruising. Lymphatic: No lymphadenopathy. Physical examination: General: Patient is well-developed and well-nour ished. Not in any acute distress at this time. Head: Normocephalic and atraumatic. Eyes: Normal conjunctiva. No scleral ict erus. Pupils are equal and reactive to light. ENT: Oral mucosa pink and moist. No thrush is ap parent. Neck: No palpable cervical or supraclavicular ly mphadenopathy. No jugular venous distention. Trachea midline. Respiratory: Normal chest contour. Symmetric to expansion. Fair air exchange without wheezing or rhonchi. Cardiac: Heart has a regular rate and rhythm, wi thout murmur, rub, or gallop. Abdomen: Flat and soft. Normoactive bowel sounds . No palpable hepatosplenomegaly or masses. Extremities: No cyanosis, clubbing, or edema. Lymphatic: No palpable cervical or supraclavicul ar lymphadenopathy. Neurologic: Patient is awake alert and appropria te. Cranial nerves II through XII are grossly intact. No gross focal motor def icits. Musculoskeletal: No deformity is apparent. Jackeline l muscle bulk and tone. History - Adult longitudinal Medications: Home Medications: Medication Dose/Rte/Freq Days Qty Entered Last Max Daily Dose Reviewed metFORMIN (GLUCOPHAGE) 500 MG PO BID 07/18/19 0 07/18/19 Strength: 500 MG TAB 2034 2034 BENZONATATE (TESSALON) 100 MG PO 07/18/1907/17 Strength: 100 MG CAP TID PRN PRN cough 2035 204 0 LISINOPRIL/HCTZ 1 TAB PO DAILY 07/18/19 0 (ZESTORETIC 20/12.5 MG) 2035 2039 Strength: 20 MG-12.5 MG TAB NORTRIPTYLINE (PAMELOR) 10 MG PO BEDTIME 07/18/19 Strength: 10 MG CAP 2035 2038 ALENDRONATE 70 MG PO Q7D 07/18/19 07/18/19 (FOSAMAX ONCE WEEKLY) 2036 2038 Strength: 70 MG TAB 10 ML PO 07/18/19 07/18/19 BROMPHENIRAMINE/PHENYLEPH/DM 1-2.5-5 MG/5ML Q4H PRN PRN cough 2038 2038 (DIMAPHEN DM 102.5-5 MG/5 ML) Strength: 1 MG-2.5 MG-5 MG/5 ML SOLUTION Current Hospital Medications: Anti-Infective Agents Sig/Lillian Start time Last Medication Dose Route Stop Time Status Admin Levofloxacin 500 MG DAILY 07/19 899 AC 07/20 (LEVAQUIN) PO 07/23 0859 0942 Cardiovascular Drugs Sig/Lillian Start time Last Medication Dose Route Stop Time Status Admin Lisinopril 20 MG DAILY 07/18 09 AC 07/20 (ZESTRIL) PO 08/17 0859 0942 Central Nervous System Agents Sig/Lillian Start time Last Medication Dose Route Stop Time Status Admin Acetaminophen 650 MG Q4H PRN PRN 07/17 444 AC 07/19 (TYLENOL 325MG) PO 08/16 0444 2350 Electrolytic, Caloric, And Anna Sig/Lillian Start time Last Medication Dose Route Stop Time Status Admin Hydrochlorothiazide 12.5 MG DAILY 07/18 09 AC 07/20 (HYDRODIURIL) PO 08/17 0859 0941 Gastrointestinal Drugs Sig/Lillian Start time Last Medication Dose Route Stop Time Status Admin Lactulose 20 GM BID PRN PRN 07/19 1600 AC 07/19 (LACTULOSE) PO 08/18 1559 1625 Hormones And Synthetic Substit Sig/Lillian Start time Last Medication Dose Route Stop Time Status Admin Metformin HCl 500 MG BID MEALS 07/17 2100 AC (metFORMIN 500 MG PO 08/16 2058 0941 TABLET) Respiratory Tract Agents Sig/Lillian Start time Last Medication Dose Route Stop Time Status Admin Benzonatate 100 MG TID PRN PRN 07/17 2044 AC (TESSALON PERLE) PO 08/16 Guaifenesin/ 10 ML Q6H PRN PRN 07/17 2044 AC Dextromethorphan PO 08/16 (DIABETIC TUSSIN DM LIQUID) Allergies: Coded Allergies: Penicillins (Mild, ANAPHYLAXIS 07/17/19) Objective Physical Exam: VS/I O: Last Documented: Result Date Time Pulse Ox 91 07/20 1152 B/P 136/78 07/20 1152 B/P Mean 97.6 07/20 1152 O2 Delivery Nasal cannula 07/20 115 Temp 98.4 07/20 1152 Pulse 101 07/20 1152 Resp 18 07/20 1152 O2 Flow Rate 7.926341 07/20 1010 FiO2 97 07/19 0800 24 hour I O ending at 0700: 07/19 1900 07/20 0700 Intake Total 240 240 Output Total Balance 240 240 Intake, Oral 240 240 Number Voids 2 Patient Weight Weight (lb): Weight (oz): Weight (kg): 80.900 Results: Findings/Data: Laboratory Tests 07/21/19529: [Embedded Image Not Available] Laboratory Tests 07/20 529 Chemistry Sodium (134.0 - 147.0 mmol/l) 140 Potassium (3.6 - 5.2 mmol/L) 3.5 L Chloride (98.0 - 107.0 mmol/l) 99 Carbon Dioxide (21.0 - 33.0 mmol/l) 32.1 Anion Gap (0 - 20) 12.4 BUN (7.0 - 18.0 mg/dl) 15 Creatinine (0.60 - 1.30 mg/dL) 0.61 Est GFR ( Amer) (97 - 109 mL/min) 126 H Est GFR (Non-Af Amer) (80 - 90 mL/min) 104 H Glucose (70.0 - 110.0 mg/dl) 128 H Calcium (8.0 - 10.5 mg/dl) 8.6 Magnesium (1.8 - 2.4 mg/dl) 1.6 L Total Bilirubin (0.0 - 1.0 mg/dl) 0.3 AST (15.0 - 37.0 Units/L) 33 ALT (12.0 - 78.0 Units/L) 31 Total Alk Phosphatase (50.0 - 136.0 Units/L) 9 7 Total Protein (6.0 - 8.1 GM/DL) 7.2 Albumin (3.2 - 4.7 gm/dL) 1.9 L Laboratory Tests 07/20 0530 Hematology WBC (4.5 - 11.0 K/mm3) 12.2 H RBC (3.80 - 5.20 M/mm3) 3.82 Hgb (12.0 - 16.0 gm/dL) 11.2 L Hct (36.0 - 48.0 %) 33.9 L MCV (82.0 - 99.0 UM3) 88.7 MCH (25.5 - 32.5 UUG) 29.3 MCHC (29.0 - 35.5 gm/dL) 33.0 RDW (11.5 - 15.0 %) 11.5 Plt Count (150 - 400 K/mm3) 329 MPV (7.4 - 10.4 fl) 9.2 Neut % (Auto) (49.0 - 76.0 %) 83.3 H Lymph % (Auto) (23.0 - 38.0 %) 7.2 L [place] % (Auto) (1.0 - 10.0 %) 6.7 Eos % (Auto) (1.0 - 5.0 %) 0.7 L Baso % (Auto) (0.0 - 1.0 %) 0.3 Neut # (Auto) (2.4 - 6.3 K/mm3) 10.1 H Lymph # (Auto) (1.2 - 4.0 K/mm3) 0.9 L [place] # (Auto) (0.0 - 0.6 K/mm3) 0.8 H Eos # (Auto) (0.0 - 0.7 K/MM3) 0.1 Baso # (Auto) (0.0 - 0.2 K/mm3) 0.0 Immature Gran % (0.0 - 0.4 %) 1.8 H Immature Gran # (0.00 - 0.07 x10 3/uL) 0.22 H Radiology Data: Recent Impressions-Last 72 Hrs RADIOLOGY - XR CHEST 1 V 07/18 3939 Report Impression - Status: SIGNED Entered: 07/19/2019 0532 IMPRESSION: Worsening bilateral opacities related to multifo jimbo pneumonia including viral. Impression By: [email or web address] - Sankaman Praisoody, M.D. Diagnosis, Assessment Plan Free Text DxA P Notes Free Text DxA P Notes: 1. COVID pneumonia -lymphopenic -Worsening oxygenation -Add hydroxychloroquine and zinc 2. Acute hypoxemic respiratory failure -supplemental oxygen, wean as tolerated -consider steroids if any worsening 3. HTN -cont home medication (including HCTZ/lisinopril ) 4. Type 2 diabetes mellitus -FSBG/SSI -on oral agents for chronic maintenance 5. Severe protein-calorie malnutrition -significant proteinuria (diabetic nephropathy?) -add nutritional supplements Electronically Signed by Christopher Mello MD on 0 07/21/19 at 1857 [facility] #:[id number] END OF REPORT 2019-07-20 [facility] 14:45:00-00:00 [facility] ([facility]) Hospitalist Progress Note REPORT#:[id number] REPORT STATUS: Signed DATE:07/20/19 TIME: 1445 PATIENT: HARLEEN ALICEA UNIT #: [id number] ROOM/BED: [place] [address] : 53 AGE: 64 SEX: F ATTEND: Kika Bowers MD ADM AUTHOR: Santiago Ashton * ALL edits or amendments must be made on the [employer]/computer document * Subjective Chief Complaint: Feeling worse today from yesterday. Still on NRB but O2 sat 99% asking for potassium Patient reports: Yes: pain controlled, resting comfortably, short ness of breath. No: abdominal pain, chest pain, chills, cough, diarrhea, dizzi ness, feeling better, fever, headache, nausea, vomiting. Review of Systems Constitutional: Reports: fever, generalized weakness. Denies: ch ills, fatigue. Skin: Denies: abrasion, diaphoresis, ecchymosis. Allergy/Immun: Denies: allergic reaction, itching, rhinorrhea. Respiratory: Reports: PARRA (dyspnea on exertion), SOB. Denies: pleuritic pain, productive cough (sputum). Cardiovascular: Denies: chest pain, edema, orthopnea. GI: Denies: abdominal pain, anorexia, nausea. : Denies: dysuria, flank pain, frequency. Musculoskeletal: Denies: arthritis, extremity pain, extremity swe lling. Neuro: Denies: bladder dysfunction, change in LOC, conf usion. Objective General VS/I O: Vital Signs: Date Time Temp Pulse Resp B/P B/P Pulse O2 O2 Fl ow FiO2 Mean Ox Delivery Rate 07/19 1111 98.2 86 18 134/81 98.4 98 Nasal cannula 07/19 0944 97 Non 15.762300 rebreather mask 07/19 0800 Non 15.679240 97 rebreather mask 07/19 0648 99.0 77 18 133/56 81.4 99 Nasal cannula 07/19 0459 98.2 78 14 129/70 89.6 91 07/19 0137 98.2 77 14 122/76 91.3 96 07/19 0026 Non 15.055625 rebreather mask 07/18 2222 99 Non 15.889392 rebreather mask 07/18 1958 98.8 86 14 139/71 93.2 98 07/18 1653 98 Non 15.910624 rebreather mask 24 hour I O ending at 0700: 07/19 0700 07/18 1900 Intake Total 480 Output Total Balance 480 Intake, Oral 480 Patient Weight Weight (lb): Weight (oz): Weight (kg): 80.900 Physical Exam General appearance: alert, awake, no respiratory distress Head/Eyes: atraumatic, EOMI, PERRL ENT: moist mucosal membranes, normal ear left, n ormal ear right Cardiovascular: normal capillary refill, normal heart sounds, regular rate rhythm Respiratory: hypoxia, aerating well, symmetric e xpansion Abdomen: normal bowel sounds, soft, no distentio n Extremities: moves all, no cyanosis, no edema Musculoskeletal: normal inspection, no muscle sp asm Neuro/METAL SOLDERER: alert, oriented X 3, CNII-XII intact, normal speech Skin: dry, normal temperature, no rash Psychiatry: normal affect, normal mood Results Findings/Data: Laboratory Tests 07/18 1633 Chemistry Sodium (134.0 - 147.0 mmol/l) 141 Potassium (3.6 - 5.2 mmol/L) 3.6 Chloride (98.0 - 107.0 mmol/l) 101 Carbon Dioxide (21.0 - 33.0 mmol/l) 35.8 H Anion Gap (0 - 20) 7.8 BUN (7.0 - 18.0 mg/dl) 15 Creatinine (0.60 - 1.30 mg/dL) 0.63 Est GFR ( Amer) (97 - 109 mL/min) 121 H Est GFR (Non-Af Amer) (80 - 90 mL/min) 100 H Glucose (70.0 - 110.0 mg/dl) 108 Calcium (8.0 - 10.5 mg/dl) 8.5 Laboratory Tests 07/18 1633 Hematology WBC (4.5 - 11.0 K/mm3) 7.9 RBC (3.80 - 5.20 M/mm3) 3.93 Hgb (12.0 - 16.0 gm/dL) 11.6 L Hct (36.0 - 48.0 %) 35.5 L MCV (82.0 - 99.0 UM3) 90.3 MCH (25.5 - 32.5 UUG) 29.5 MCHC (29.0 - 35.5 gm/dL) 32.7 RDW (11.5 - 15.0 %) 11.7 Plt Count (150 - 400 K/mm3) 298 MPV (7.4 - 10.4 fl) 9.8 Neut % (Auto) (49.0 - 76.0 %) 77.8 H Lymph % (Auto) (23.0 - 38.0 %) 11.0 L [place] % (Auto) (1.0 - 10.0 %) 8.2 Eos % (Auto) (1.0 - 5.0 %) 0.8 L Baso % (Auto) (0.0 - 1.0 %) 0.4 Neut # (Auto) (2.4 - 6.3 K/mm3) 6.1 Lymph # (Auto) (1.2 - 4.0 K/mm3) 0.9 L [place] # (Auto) (0.0 - 0.6 K/mm3) 0.6 Eos # (Auto) (0.0 - 0.7 K/MM3) 0.1 Baso # (Auto) (0.0 - 0.2 K/mm3) 0.0 Immature Gran % (0.0 - 0.4 %) 1.8 H Immature Gran # (0.00 - 0.07 x10 3/uL) 0.14 H Laboratory Tests 07/19 1215 Urines Urine pH (5.0 - 9.0) 6.0 Ur Specific [place] (1.000 - 1.030) 1.015 Urine Protein (NEGATIVE mg/dl) 15 mg/dl H Urine Glucose (UA) (NORMAL mg/dl) NORMAL Urine Ketones (NEGATIVE mg/dl) NEGATIVE Urine Blood (NEGATIVE Tristen/micL) 10 Tristen/micL H Urine Nitrite (NEGATIVE) NEGATIVE Urine Bilirubin (NEGATIVE mg/dL) NEGATIVE Urine Urobilinogen (NORMAL mg/dl) NORMAL Ur Leukocyte Esterase (NEGATIVE Gaby/micL) NEGAT IVETTE Urine WBC (NONE WBC/HPF) NONE SEEN Ur Squamous Epith Cells (#/hpf) 0-2 Urine Culture Screen (Culture Chk Criteria) NO, WBC<10 Diagnosis, Assessment Plan Hospital course to date: 1. COVID19 PNA Hypoxia - wean O2 as tolerated - was tested at [facility] outpatient cli leela and was positive on 07/11 - symptomatic treatment - levaquin 2. Leukocytosis - UA pending - may need abx as the CXR shows possible consoli dation 3. Unknown what chronic issues she has, meds hav e not been uploaded yet. She looks good. 07/17 decompensated today, now on NRB continue current care 07/18 on NRB but saturating very well, can wean O2 will hold off on consulting pulm at this time repeat CXR today lab work today and replace electrolytes as neede d 07/19 Pt continues with SOB, CXR shows worsening. Will ask pulm to see. Electronically Signed by Santiago Ashton on 0 07/20/19 at 1447 RPT #:[id number] END OF REPORT 2019-07-19 [facility] 13:15:00-00:00 [facility] ([facility] Hospitalist Progress Note REPORT#:[id number] REPORT STATUS: Signed DATE:07/19/19 TIME: 1315 PATIENT: HARLEEN ALICEA UNIT #: [id number] ROOM/BED: [place] [address] : 53 AGE: 64 SEX: F ATTEND: Kika Bowers MD ADM AUTHOR: Olena Bowers MD * ALL edits or amendments must be made on the el [employer]/computer document * Subjective Chief Complaint: Feeling worse today from yesterday. Still on NRB but O2 sat 99% asking for potassium Review of Systems Constitutional: Reports: fever, generalized weakness. Denies: ch ills, fatigue. Skin: Denies: abrasion, diaphoresis, ecchymosis. Allergy/Immun: Denies: allergic reaction, itching, rhinorrhea. Respiratory: Reports: PARRA (dyspnea on exertion), SOB. Denies: pleuritic pain, productive cough (sputum). Cardiovascular: Denies: chest pain, edema, orthopnea. GI: Denies: abdominal pain, anorexia, nausea. : Denies: dysuria, flank pain, frequency. Musculoskeletal: Denies: arthritis, extremity pain, extremity swe lling. Neuro: Denies: bladder dysfunction, change in LOC, conf usion. Objective General VS/I O: Vital Signs: Date Time Temp Pulse Resp B/P B/P Pulse O2 O2 Fl ow FiO2 Mean Ox Delivery Rate 07/18 1300 36.5 82 18 153/77 102.5 99 07/18 0850 Non 15.940193 rebreather mask 07/18 0447 36.9 65 14 146/72 96.2 99 07/18 0059 36.7 67 14 148/70 95.9 100 07/18 0001 Non 15.575329 rebreather mask 07/17 2324 100 Non 15.257470 rebreather mask 07/17 1950 36.8 81 14 161/78 105.5 98 07/17 1734 36.8 69 16 136/71 92.4 95 Simple mask 24 hour I O ending at 0700: 07/18 0700 07/17 1900 Intake Total 215 Output Total Balance 215 Intake, Oral 165 Intake, Oral 50 Supplement Number 1 Bowel Movements Number Voids 5 Patient Weight Weight (lb): Weight (oz): Weight (kg): 80.900 Medications: Active Meds + DC'd Last 24 Hrs Hydrochlorothiazide 12.5 MG DAILY PO Lisinopril 20 MG DAILY PO Metformin HCl 500 MG BID MEALS PO Nortriptyline HCl 10 MG BEDTIME PO (DC) Benzonatate 100 MG TID PRN PRN PO Guaifenesin/Dextromethorphan 10 ML Q6H PRN PRN P O Levofloxacin 500 MG DAILY PO Acetaminophen 650 MG Q4H PRN PRN PO Physical Exam General appearance: alert, awake, oriented Head/Eyes: atraumatic, EOMI, PERRL ENT: moist mucosal membranes, normal ear left, n ormal ear right Cardiovascular: normal capillary refill, normal heart sounds, regular rate rhythm Respiratory: hypoxia, aerating well, symmetric e xpansion Abdomen: normal bowel sounds, soft, no distentio n Extremities: moves all, no cyanosis, no edema Musculoskeletal: normal inspection, no muscle sp asm Neuro/METAL SOLDERER: alert, oriented X 3, CNII-XII intact, normal speech Skin: dry, normal temperature, no rash Psychiatry: normal affect, normal mood Diagnosis, Assessment Plan Hospital course to date: COVID19 PNA Hypoxia - wean O2 as tolerated - was tested at [facility] outpatient cli leela and was positive on 07/11 - symptomatic treatment - levaquin Leukocytosis - UA pending - may need abx as the CXR shows possible consoli dation Unknown what chronic issues she has, meds have n ot been uploaded yet. She looks good. 07/17 decompensated today, now on NRB continue current care 07/18 on NRB but saturating very well, can wean O2 will hold off on consulting pulm at this time repeat CXR today lab work today and replace electrolytes as neede d Electronically Signed by Olena Bowers MD on at 1318 RPT #:[id number] END OF REPORT 2019-07-18 [facility] 14:12:00-00:00 [facility] ([facility] Hospitalist Progress Note REPORT#:[id number] REPORT STATUS: Signed DATE:07/18/19 TIME: 1411 PATIENT: HARLEEN ALICEA UNIT #: [id number] ROOM/BED: [place] [address] : 53 AGE: 64 SEX: F ATTEND: Kika Bowers MD ADM AUTHOR: Olena Bowers MD * ALL edits or amendments must be made on the el [employer]/computer document * Subjective Chief Complaint: worsening SOB this Am and oxygenation was put on NRB and doing better now tolerating diet Review of Systems Constitutional: Reports: fever, generalized weakness. Denies: ch ills, fatigue. Skin: Denies: abrasion, diaphoresis, ecchymosis. Allergy/Immun: Denies: allergic reaction, itching, rhinorrhea. Respiratory: Reports: PARRA (dyspnea on exertion), SOB. Denies: pleuritic pain, productive cough (sputum). Cardiovascular: Denies: chest pain, edema, orthopnea. GI: Denies: abdominal pain, anorexia, nausea. : Denies: dysuria, flank pain, frequency. Musculoskeletal: Denies: arthritis, extremity pain, extremity swe lling. Neuro: Denies: bladder dysfunction, change in LOC, conf usion. Objective General VS/I O: Vital Signs: Date Time Temp Pulse Resp B/P B/P Pulse O2 O2 Fl ow FiO2 Mean Ox Delivery Rate 07/17 1150 36.7 77 15 153/83 106.4 100 Simple mask 07/17 1139 99 Non 15.841576 100 rebreather mask 07/17 0844 36.9 83 14 164/83 109.9 96 Simple mask 07/17 0453 36.8 91 14 160/74 102.9 92 07/17 0108 Nasal 4.914234 cannula 07/17 0013 37.2 92 14 138/75 95.8 95 07/16 2245 Nasal 3.220336 cannula 07/16 2157 37.1 100 14 143/64 90.3 91 07/16 1653 37.1 100 18 154/75 101.1 88 Nasal cannula 07/16 1505 3.152124 Patient Weight Weight (lb): Weight (oz): Weight (kg): 80.900 Medications: Active Meds + DC'd Last 24 Hrs Levofloxacin 500 MG DAILY PO Acetaminophen 650 MG Q4H PRN PRN PO Insulin Human Lispro SLIDING SCALE AC HS SUBQ (DC) Acetaminophen 650 MG Q4H PRN PRN PO (DC) Dextrose/Water 125 ML ASDIR PRN IV (DC) Dextrose/Water 250 ML ASDIR PRN IV (DC) Glucagon 1 MG ASDIR PRN IM (DC) Physical Exam General appearance: alert, awake, oriented Head/Eyes: atraumatic, EOMI, PERRL ENT: moist mucosal membranes, normal ear left, n ormal ear right Cardiovascular: normal capillary refill, normal heart sounds, regular rate rhythm Respiratory: hypoxia, aerating well, symmetric e xpansion Abdomen: normal bowel sounds, soft, no distentio n Extremities: moves all, no cyanosis, no edema Musculoskeletal: normal inspection, no muscle sp asm Neuro/METAL SOLDERER: alert, oriented X 3, CNII-XII intact, normal speech Skin: dry, normal temperature, no rash Psychiatry: normal affect, normal mood Results Findings/Data: Laboratory Tests 07/17 1423 Serology COVID-19 PCR (Negative) POSITIVE H Diagnosis, Assessment Plan Hospital course to date: COVID19 PNA Hypoxia - wean O2 as tolerated - was tested at [facility] outpatient cli leela and was positive on 07/11 - symptomatic treatment - levaquin Leukocytosis - UA pending - may need abx as the CXR shows possible consoli dation Unknown what chronic issues she has, meds have n ot been uploaded yet. She looks good. 07/17 decompensated today, now on NRB continue current care Electronically Signed by Olena Bowers MD on at 1413 RPT #:[id number] END OF REPORT 2019-07-17 [facility] 11:47:00-00:00 [facility] ([facility]) Hospitalist History Physical REPORT#:[id number] REPORT STATUS: Signed DATE:07/17/19 TIME: 1147 PATIENT: HARLEEN ALICEA UNIT #: [id number] ROOM/BED: [place] [address] : 53 AGE: 64 SEX: F ATTEND: Kika Bowers MD ADM AUTHOR: Olena Bowers MD * ALL edits or amendments must be made on the el [employer]/computer document * History of Present Illness HPI Chief complaint: COVID 19 HPI: 64yo female with hx of DM II was tested for COVID on 07/11 at [facility] which came back positive. Her symptoms persist a nd including SOB, dry cough, nausea, anosmia. When she arrived at our ED she was hypoxemic on room air with O2 89% and she was not in re spiratory distress. This AM she feels weak and still SOB but was able to eat her breakfast. History Past medical history: Reports: Diabetes mellitus, Hypertension. Smoking status for patients 13 years old or olde r: Never Smoker Medication/Allergy-Vaccine Hx Allergies: Coded Allergies: Penicillins (Mild, ANAPHYLAXIS 07/17/19) Review of Systems Constitutional: Reports: fever, generalized weakness. Denies: ch ills, fatigue. Skin: Denies: abrasion, diaphoresis, ecchymosis. Allergy/Immun: Denies: allergic reaction, itching, rhinorrhea. Respiratory: Reports: PARRA (dyspnea on exertion), SOB. Denies: pleuritic pain, productive cough (sputum). Cardiovascular: Denies: chest pain, edema, orthopnea. GI: Denies: abdominal pain, anorexia, nausea. : Denies: dysuria, flank pain, frequency. Musculoskeletal: Denies: arthritis, extremity pain, extremity swe lling. Neuro: Denies: bladder dysfunction, change in LOC, conf usion. Objective General VS/I O: Vital Signs: Date Time Temp Pulse Resp B/P B/P Pulse O2 O2 F low FiO2 Mean Ox Delivery Rate 07/16 1400 36.8 91 22 108/64 78.5 92 07/16 0431 Nasal 4.953247 cannula 07/16 0348 36.7 86 20 122/58 79 98 Nasal 4.000 000 cannula 24 hour I O ending at 0700: 07/16 0700 07/15 1900 Intake Total Output Total Balance Patient 80.9 kg Weight Weight Bed scale Measurement Method Patient Weight Weight (lb): Weight (oz): Weight (kg): 80.900 Medications: Active Meds + DC'd Last 24 Hrs Insulin Human Lispro SLIDING SCALE AC HS SUBQ Acetaminophen 650 MG Q4H PRN PRN PO Dextrose/Water 125 ML ASDIR PRN IV Dextrose/Water 250 ML ASDIR PRN IV Dextrose/Water 125 ML ASDIR PRN IV (CAN) Dextrose/Water 250 ML ASDIR PRN IV (CAN) Glucagon 1 MG ASDIR PRN IM Glucagon 1 MG ASDIR PRN IM (CAN) Physical Exam General appearance: alert, awake, oriented Head/Eyes: atraumatic, EOMI, PERRL ENT: moist mucosal membranes, normal ear left, n ormal ear right Cardiovascular: normal capillary refill, normal heart sounds, regular rate rhythm Respiratory: hypoxia, aerating well, symmetric e xpansion Abdomen: normal bowel sounds, soft, no distentio n Extremities: moves all, no cyanosis, no edema Musculoskeletal: normal inspection, no muscle sp asm Neuro/METAL SOLDERER: alert, oriented X 3, CNII-XII intact, normal speech Skin: dry, normal temperature, no rash Psychiatry: normal affect, normal mood Results Findings/Data: Laboratory Tests 07/16 409 Chemistry Sodium (134.0 - 147.0 mmol/l) 141 Potassium (3.6 - 5.2 mmol/L) 3.4 L Chloride (98.0 - 107.0 mmol/l) 104 Carbon Dioxide (21.0 - 33.0 mmol/l) 31.0 Anion Gap (0 - 20) 9.4 BUN (7.0 - 18.0 mg/dl) 26 H Creatinine (0.60 - 1.30 mg/dL) 0.91 Est GFR ( Amer) (97 - 109 mL/min) 79 L Est GFR (Non-Af Amer) (80 - 90 mL/min) 65 L Glucose (70.0 - 110.0 mg/dl) 135 H Calcium (8.0 - 10.5 mg/dl) 8.0 Total Bilirubin (0.0 - 1.0 mg/dl) 0.4 AST (15.0 - 37.0 Units/L) 27 ALT (12.0 - 78.0 Units/L) 38 Total Alk Phosphatase (50.0 - 136.0 Units/L) 94 Troponin I (0.00 - 0.06 NG/ML) <0.02 Total Protein (6.4 - 8.2 gm/dL) 6.9 Albumin (3.2 - 4.7 gm/dl) 2.4 L Laboratory Tests 07/16 409 Hematology WBC (4.5 - 11.0 K/mm3) 16.6 H RBC (3.80 - 5.20 M/mm3) 3.66 L Hgb (12.0 - 16.0 gm/dL) 11.1 L Hct (36.0 - 48.0 %) 33.3 L MCV (82.0 - 99.0 UM3) 91.0 MCH (25.5 - 32.5 UUG) 30.3 MCHC (29.0 - 35.5 gm/dL) 33.3 RDW (11.5 - 15.0 %) 12.0 Plt Count (150 - 400 K/mm3) 203 MPV (7.4 - 10.4 fl) 10.5 H Neut % (Auto) (49.0 - 76.0 %) 92.1 H Lymph % (Auto) (23.0 - 38.0 %) 4.3 L [place] % (Auto) (1.0 - 10.0 %) 2.2 Eos % (Auto) (1.0 - 5.0 %) 0.2 L Baso % (Auto) (0.0 - 1.0 %) 0.3 Neut # (Auto) (2.4 - 6.3 K/mm3) 15.3 H Lymph # (Auto) (1.2 - 4.0 K/mm3) 0.7 L [place] # (Auto) (0.0 - 0.6 K/mm3) 0.4 Eos # (Auto) (0.0 - 0.7 K/MM3) 0.0 Baso # (Auto) (0.0 - 0.2 K/mm3) 0.1 Total Counted (#CELLS) 100 Immature Gran % (0.0 - 0.4 %) 0.9 H Seg Neutrophils % (50.0 - 70.0 %) 82 H Band Neutrophils % (1.0 - 4.0 %) 14 H Lymphocytes % (Manual) (20 - 40 %) 4 L Immature Gran # (0.00 - 0.07 x10 3/uL) 0.15 H Platelet Estimate ADQ Plt Morphology Comment APPEAR LARGE Morphology Comment NM Microbiology Date/Time Procedure - Status Source Growth 07/16 410 Influenza Virus Type B Antigen - COM P NASOPHARG 07/16 410 Influenza Virus Type A Antigen - COM P NASOPHARG Radiology data: Recent Impressions: RADIOLOGY - XR CHEST 1 V 07/16 421 Report Impression - Status: SIGNED Entered: 07/17/2019425 IMPRESSION: Multifocal interstitial pneumonia. Impression By: FlorenceW - Nieves Cook M.D. Diagnosis, Assessment Plan Hospital course to date: COVID19 PNA Hypoxia - wean O2 as tolerated - was tested at [facility] outpatient cli leela and was positive on 07/11 - symptomatic treatment - levaquin Leukocytosis - UA pending - may need abx as the CXR shows possible consoli dation Unknown what chronic issues she has, meds have n ot been uploaded yet. She looks good. Electronically Signed by Olena Bowers MD on at 1441 RPT #:[id number] END OF REPORT 2019-07-17 [facility] 05:26:00-00:00 [facility] ([facility]) EMERGENCY PROVIDER REPORT REPORT#:[id number] REPORT STATUS: Signed DATE:07/17/19 TIME: 525 PATIENT: HARLEEN ALICEA UNIT #: [id number] ROOM/BED: [facility] AGE: 64 SEX: F PCP PHYS: No Primary or Family Ph ysician SERVICE AUTHOR: Alma Guan MD * ALL edits or amendments must be made on the [employer]/computer document * HPI-Dyspnea/Wheezing General Confirmed Patient Yes Initial Greet Date/Time 07/17/19 0350 Transferred From Outlying facility Presentation Chief Complaint Cough, Shortness of breath Free Text HPI Notes Free Text HPI Notes 64-year-old female with PMH of DM broug ht in by EMS from [facility] for pneumonia related to COVID-19. Pat alannant states that she has had fever, weakness, and progressively worsening barron rtness of breath. She was tested at a clinic in [place], [place] for COVID-1 9 and received her results 2 days ago which were positive. Per prior treating physician, patient's O2 sat was 89% on room air. She received magnes ium 1 g, NS 1 L, potassium 20 meq p.o. prior to arrival. Review of Systems ROS Statements All systems rev neg except as marked. Basic Review of Systems Basic ROS EYES: No redness, GI: No abd pain/vomiting, : No dysuria/frequency, HEM: No bleeding/bruising, N EURO: No change MS, NEURO: No focal deficit, PSYCH: NL thought content Focused Review of Systems Constitutional Reports: Chills, Fatigue, Fever, Malaise, Weakne ss - generalized. Respiratory Reports: Cough, non-productive, Shortness of tim ath. Past Medical History - Adult Stated Complaint SHORTNESS OF BREATH ON EXERTION Allergies Coded Allergies: Penicillins (Mild, ANAPHYLAXIS 07/17/19) Home Medications Reported Medications metFORMIN (GLUCOPHAGE) 500 MG PO BID BENZONATATE (TESSALON) 100 MG PO TID PRN PRN cou gh LISINOPRIL/HCTZ (ZESTORETIC 20/12.5 MG) 1 TAB PO DAILY NORTRIPTYLINE (PAMELOR) 10 MG PO BEDTIME ALENDRONATE (FOSAMAX ONCE WEEKLY) 70 MG PO Q7D BROMPHENIRAMINE/PHENYLEPH/DM 1-2.5-5 MG/5ML (DIMAPHEN DM 102.5-5 MG/5 ML) 10 ML PO Q4H PRN PRN cough Discontinued Reported Medications ACETAMINOPHEN/CODEINE (TYLENOL WITH CODE INE #3 300/30 MG) 1 TAB PO Q6H PRN PRN PAIN NORTRIPTYLINE (PAMELOR) 10 MG PO QID DOXYCYCLINE HYCLATE (VIBRAMYCIN) 100 MG PO BID ALENDRONATE (FOSAMAX ONCE WEEKLY) 70 MG PO Q7D metFORMIN (GLUCOPHAGE) TERBINAFINE (LamISIL) 250 MG PO DAILY Past Medical History: Reports: Diabetes mellitus, Hypertension. Smoking status for patients 13 years old or olde r: Never Smoker Physical Exam Vital Signs Vital Signs First Documented: Result Date Time Pulse Ox 98 07/16 0348 B/P 122/58 07/16 0348 B/P Mean 79 07/16 0348 O2 Delivery Nasal cannula 07/16 0348 O2 Flow Rate 4.689467 07/16 0348 Temp 36.7 07/16 0348 Pulse 86 07/16 0348 Resp 20 07/16 0348 Last Documented: Result Date Time O2 Delivery Nasal cannula 07/16 043 O2 Flow Rate 4.958846 07/16 0431 Pulse Ox 98 07/16 0348 B/P 122/58 07/16 0348 B/P Mean 79 07/16 0348 Temp 36.7 07/16 0348 Pulse 86 07/16 0348 Resp 20 07/16 0348 Review of Vital Signs Reviewed Basic Physical Exam Basic PE HEAD: Atraumatic/NC , EYES: PERRL, conj clear, ENT: Membranes moist, ABD : Soft/non-tender, EXT: No g ross abnormality, SKIN: No rashes, warm/dry, NEURO: alert oriented, NEURO: gross movement NL, PSYCH: NL thought content Focused PE General/Const General/Const Awake, Alert, No acute di stress, Well hydrated, Well nourished, Cooperative, Not toxic appearing MS Neck Neck Atraumatic, Supple, No meningismus, Full range of motion Resp/Chest Respiratory/Chest Atraumatic, Breath sounds NL, No respiratory distress, No rales, No rhonchi, No wheezing, No retractions Text/Dict Notes Dry cough noted Cardiovascular Cardiovascular Heart rate NL, Regular rhythm, H eart sounds NL, No gallop, No murmurs, No rubs Abdomen/GI Abdomen/GI Atraumatic, Soft, No guarding, No re bound, No distention Interpretation Diagnostics Lab Results Interpretation Results Laboratory Tests 07/17/19409: [Embedded Image Not Available] Laboratory Tests: 07/16 409 Chemistry Sodium (134.0 - 147.0 mmol/l) 141 Potassium (3.6 - 5.2 mmol/L) 3.4 L Chloride (98.0 - 107.0 mmol/l) 104 Carbon Dioxide (21.0 - 33.0 mmol/l) 31.0 Anion Gap (0 - 20) 9.4 BUN (7.0 - 18.0 mg/dl) 26 H Creatinine (0.60 - 1.30 mg/dL) 0.91 Est GFR ( Amer) (97 - 109 mL/min) 79 L Est GFR (Non-Af Amer) (80 - 90 mL/min) 65 L Glucose (70.0 - 110.0 mg/dl) 135 H Calcium (8.0 - 10.5 mg/dl) 8.0 Total Bilirubin (0.0 - 1.0 mg/dl) 0.4 AST (15.0 - 37.0 Units/L) 27 ALT (12.0 - 78.0 Units/L) 38 Total Alk Phosphatase (50.0 - 136.0 Units/L) 94 Troponin I (0.00 - 0.06 NG/ML) <0.02 Total Protein (6.4 - 8.2 gm/dL) 6.9 Albumin (3.2 - 4.7 gm/dl) 2.4 L Hematology WBC (4.5 - 11.0 K/mm3) 16.6 H RBC (3.80 - 5.20 M/mm3) 3.66 L Hgb (12.0 - 16.0 gm/dL) 11.1 L Hct (36.0 - 48.0 %) 33.3 L MCV (82.0 - 99.0 UM3) 91.0 MCH (25.5 - 32.5 UUG) 30.3 MCHC (29.0 - 35.5 gm/dL) 33.3 RDW (11.5 - 15.0 %) 12.0 Plt Count (150 - 400 K/mm3) 203 MPV (7.4 - 10.4 fl) 10.5 H Neut % (Auto) (49.0 - 76.0 %) 92.1 H Lymph % (Auto) (23.0 - 38.0 %) 4.3 L [place] % (Auto) (1.0 - 10.0 %) 2.2 Eos % (Auto) (1.0 - 5.0 %) 0.2 L Baso % (Auto) (0.0 - 1.0 %) 0.3 Neut # (Auto) (2.4 - 6.3 K/mm3) 15.3 H Lymph # (Auto) (1.2 - 4.0 K/mm3) 0.7 L [place] # (Auto) (0.0 - 0.6 K/mm3) 0.4 Eos # (Auto) (0.0 - 0.7 K/MM3) 0.0 Baso # (Auto) (0.0 - 0.2 K/mm3) 0.1 Total Counted (#CELLS) 100 Immature Gran % (0.0 - 0.4 %) 0.9 H Seg Neutrophils % (50.0 - 70.0 %) 82 H Band Neutrophils % (1.0 - 4.0 %) 14 H Lymphocytes % (Manual) (20 - 40 %) 4 L Immature Gran # (0.00 - 0.07 x10 3/uL) 0.15 H Platelet Estimate ADQ Plt Morphology Comment APPEAR LARGE Morphology Comment NM Microbiology: Date/Time Procedure - Status Source Growth 07/16 410 Influenza Virus Type B Antigen - COM P NASOPHARG 07/16 410 Influenza Virus Type A Antigen - COM P NASOPHARG Recent Impressions: RADIOLOGY - XR CHEST 1 V 07/16 421 Report Impression - Status: SIGNED Entered: 07/17/2019425 IMPRESSION: Multifocal interstitial pneumonia. Impression By: Kajal - Nieves Cook M.D. Re-Evaluation [facility] ED Course Medication(s) Ordered Medication(s) Ordered: Central Nervous System Agents Sig/Lillian Start time Last Medication Dose Route Stop Time Status Admin Acetaminophen 650 MG Q4H PRN PRN 07/16 0445 AC PO 07/18 431 Electrolytic, Caloric, And Anna Sig/Lillian Start time Last Medication Dose Route Stop Time Status Admin Dextrose/Water 125 ML ASDIR PRN 07/16 0445 AC IV 07/17 043 Dextrose/Water 250 ML ASDIR PRN 07/16 0445 AC IV 07/17 043 Dextrose/Water 125 ML ASDIR PRN 07/16 0445 CAN IV 07/17 043 Dextrose/Water 250 ML ASDIR PRN 07/16 0545 CAN IV 07/17 043 Hormones And Synthetic Substit Sig/Lillian Start time Last Medication Dose Route Stop Time Status Admin Insulin Human Lispro See Dose AC HS 07/16 0630 AC Insts (1) SUBQ 07/18 431 Glucagon 1 MG ASDIR PRN 07/16 544 AC IM 07/17 043 Glucagon 1 MG ASDIR PRN 07/16 544 CAN IM 07/17 043 Dose Instructions: (1)Insulin Human Lispro: SLIDING SCALE Patient Discharge Departure Vital Signs/Condition Vital Signs First Documented: Result Date Time Pulse Ox 98 07/16 0348 B/P 122/58 07/16 0348 B/P Mean 79 07/16 0348 O2 Delivery Nasal cannula 07/16 0348 O2 Flow Rate 4.760989 07/16 0348 Temp 36.7 07/16 0348 Pulse 86 07/16 0348 Resp 20 07/16 0348 Last Documented: Result Date Time O2 Delivery Nasal cannula 07/16 0431 O2 Flow Rate 4.323769 07/16 0431 Pulse Ox 98 07/16 0348 B/P 122/58 07/16 0348 B/P Mean 79 07/16 0348 Temp 36.7 07/16 0348 Pulse 86 07/16 0348 Resp 07/16 0348 All vital signs available at the time of this en try have been reviewed. Clinical Impression Clinical Impression Primary Impression: Pneumonia Secondary Impressions: Cough, COVID-19 virus inf ection Disposition Decision Admit Admit Physician Name Olena Bowers MD Admit Physician Hospitalist Request Time 05 Request Date 07/17/19 )( Admission Accepts Yes Discharge/Care Plan Referrals No Primary or Family Physician (PCP/Family) Electronically Signed by Alma Guan MD on at 0811 RPT #:[id number] END OF REPORT 2019-07-17 [facility] 05:26:00-00:00 [facility] ([facility] EMERGENCY PROVIDER REPORT REPORT#:[id number] REPORT STATUS: Signed DATE:07/17/19 TIME: 525 PATIENT: HARLEEN ALICEA UNIT #: [id number] ROOM/BED: [facility] AGE: 64 SEX: F PCP PHYS: No Primary or Family Ph ysician SERVICE AUTHOR: Alma Guan MD * ALL edits or amendments must be made on the [employer]/computer document * See Addendum HPI-Dyspnea/Wheezing General Confirmed Patient Yes Initial Greet Date/Time 07/17/19 0350 Transferred From Outlying facility Presentation Chief Complaint Cough, Shortness of breath Free Text HPI Notes Free Text HPI Notes 64-year-old female with PMH of DM broug ht in by EMS from [facility] for pneumonia related to COVID-19. Rosette ent states that she has had fever, weakness, and progressively worsening barron rtness of breath. She was tested at a clinic in [place], [place] for COVID-1 9 and received her results 2 days ago which were positive. Per prior treating physician, patient's O2 sat was 89% on room air. She received magnes ium 1 g, NS 1 L, potassium 20 meq p.o. prior to arrival. Review of Systems ROS Statements All systems rev neg except as marked. Basic Review of Systems Basic ROS EYES: No redness, GI: No abd pain/vomiting, : No dysuria/frequency, HEM: No bleeding/bruising, N EURO: No change MS, NEURO: No focal deficit, PSYCH: NL thought content Focused Review of Systems Constitutional Reports: Chills, Fatigue, Fever, Malaise, Weakne ss - generalized. Respiratory Reports: Cough, non-productive, Shortness of tim ath. Past Medical History - Adult Stated Complaint SHORTNESS OF BREATH ON EXERTION Allergies Coded Allergies: Penicillins (Mild, ANAPHYLAXIS 07/17/19) Home Medications Reported Medications metFORMIN (GLUCOPHAGE) 500 MG PO BID BENZONATATE (TESSALON) 100 MG PO TID PRN PRN cou gh LISINOPRIL/HCTZ (ZESTORETIC 20/12.5 MG) 1 TAB PO DAILY NORTRIPTYLINE (PAMELOR) 10 MG PO BEDTIME ALENDRONATE (FOSAMAX ONCE WEEKLY) 70 MG PO Q7D BROMPHENIRAMINE/PHENYLEPH/DM 1-2.5-5 MG/5ML (DIMAPHEN DM 102.5-5 MG/5 ML) 10 ML PO Q4H PRN PRN cough Discontinued Reported Medications ACETAMINOPHEN/CODEINE (TYLENOL WITH CODE INE #3 300/30 MG) 1 TAB PO Q6H PRN PRN PAIN NORTRIPTYLINE (PAMELOR) 10 MG PO QID DOXYCYCLINE HYCLATE (VIBRAMYCIN) 100 MG PO BID ALENDRONATE (FOSAMAX ONCE WEEKLY) 70 MG PO Q7D metFORMIN (GLUCOPHAGE) TERBINAFINE (LamISIL) 250 MG PO DAILY Past Medical History: Reports: Diabetes mellitus, Hypertension. Smoking status for patients 13 years old or olde r: Never Smoker Physical Exam Vital Signs Vital Signs First Documented: Result Date Time Pulse Ox 98 07/16 0348 B/P 122/58 07/16 0348 B/P Mean 79 07/16 0348 O2 Delivery Nasal cannula 07/16 0348 O2 Flow Rate 4.269108 07/16 0348 Temp 36.7 07/16 0348 Pulse 86 07/16 0348 Resp 20 07/16 0348 Last Documented: Result Date Time O2 Delivery Nasal cannula 07/16 043 O2 Flow Rate 4.916051 07/16 0431 Pulse Ox 98 07/16 0348 B/P 122/58 07/16 0348 B/P Mean 79 07/16 0348 Temp 36.7 07/16 0348 Pulse 86 07/16 0348 Resp 20 07/16 0348 Review of Vital Signs Reviewed Basic Physical Exam Basic PE HEAD: Atraumatic/NC , EYES: PERRL, conj clear, ENT: Membranes moist, ABD : Soft/non-tender, EXT: No g ross abnormality, SKIN: No rashes, warm/dry, NEURO: alert oriented, NEURO: gross movement NL, PSYCH: NL thought content Focused PE General/Const General/Const Awake, Alert, No acute di stress, Well hydrated, Well nourished, Cooperative, Not toxic appearing MS Neck Neck Atraumatic, Supple, No meningismus, Full r lily of motion Resp/Chest Respiratory/Chest Atraumatic, Breath sounds NL, No respiratory distress, No rales, No rhonchi, No wheezing, No retractions Text/Dict Notes Dry cough noted Cardiovascular Cardiovascular Heart rate NL, Regular rhythm, H eart sounds NL, No gallop, No murmurs, No rubs Abdomen/GI Abdomen/GI Atraumatic, Soft, No guarding, No re bound, No distention Interpretation Diagnostics Lab Results Interpretation Results Laboratory Tests 07/17/19409: [Embedded Image Not Available] Laboratory Tests: 07/16 409 Chemistry Sodium (134.0 - 147.0 mmol/l) 141 Potassium (3.6 - 5.2 mmol/L) 3.4 L Chloride (98.0 - 107.0 mmol/l) 104 Carbon Dioxide (21.0 - 33.0 mmol/l) 31.0 Anion Gap (0 - 20) 9.4 BUN (7.0 - 18.0 mg/dl) 26 H Creatinine (0.60 - 1.30 mg/dL) 0.91 Est GFR ( Amer) (97 - 109 mL/min) 79 L Est GFR (Non-Af Amer) (80 - 90 mL/min) 65 L Glucose (70.0 - 110.0 mg/dl) 135 H Calcium (8.0 - 10.5 mg/dl) 8.0 Total Bilirubin (0.0 - 1.0 mg/dl) 0.4 AST (15.0 - 37.0 Units/L) 27 ALT (12.0 - 78.0 Units/L) 38 Total Alk Phosphatase (50.0 - 136.0 Units/L) 94 Troponin I (0.00 - 0.06 NG/ML) <0.02 Total Protein (6.4 - 8.2 gm/dL) 6.9 Albumin (3.2 - 4.7 gm/dl) 2.4 L Hematology WBC (4.5 - 11.0 K/mm3) 16.6 H RBC (3.80 - 5.20 M/mm3) 3.66 L Hgb (12.0 - 16.0 gm/dL) 11.1 L Hct (36.0 - 48.0 %) 33.3 L MCV (82.0 - 99.0 UM3) 91.0 MCH (25.5 - 32.5 UUG) 30.3 MCHC (29.0 - 35.5 gm/dL) 33.3 RDW (11.5 - 15.0 %) 12.0 Plt Count (150 - 400 K/mm3) 203 MPV (7.4 - 10.4 fl) 10.5 H Neut % (Auto) (49.0 - 76.0 %) 92.1 H Lymph % (Auto) (23.0 - 38.0 %) 4.3 L [place] % (Auto) (1.0 - 10.0 %) 2.2 Eos % (Auto) (1.0 - 5.0 %) 0.2 L Baso % (Auto) (0.0 - 1.0 %) 0.3 Neut # (Auto) (2.4 - 6.3 K/mm3) 15.3 H Lymph # (Auto) (1.2 - 4.0 K/mm3) 0.7 L [place] # (Auto) (0.0 - 0.6 K/mm3) 0.4 Eos # (Auto) (0.0 - 0.7 K/MM3) 0.0 Baso # (Auto) (0.0 - 0.2 K/mm3) 0.1 Total Counted (#CELLS) 100 Immature Gran % (0.0 - 0.4 %) 0.9 H Seg Neutrophils % (50.0 - 70.0 %) 82 H Band Neutrophils % (1.0 - 4.0 %) 14 H Lymphocytes % (Manual) (20 - 40 %) 4 L Immature Gran # (0.00 - 0.07 x10 3/uL) 0.15 H Platelet Estimate ADQ Plt Morphology Comment APPEAR LARGE Morphology Comment NM Microbiology: Date/Time Procedure - Status Source Growth 07/16 410 Influenza Virus Type B Antigen - COM P NASOPHARG 07/16 410 Influenza Virus Type A Antigen - COM P NASOPHARG Recent Impressions: RADIOLOGY - XR CHEST 1 V 07/16 421 Report Impression - Status: SIGNED Entered: 07/17/2019425 IMPRESSION: Multifocal interstitial pneumonia. Impression By: Kajal - Nieves Cook M.D. Re-Evaluation MDM ED Course Medication(s) Ordered Medication(s) Ordered: Central Nervous System Agents Sig/Lillian Start time Last Medication Dose Route Stop Time Status Admin Acetaminophen 650 MG Q4H PRN PRN 07/16 544 AC PO 07/18 431 Electrolytic, Caloric, And Anna Sig/Lillian Start time Last Medication Dose Route Stop Time Status Admin Dextrose/Water 125 ML ASDIR PRN 07/16 0445 AC IV 07/17 043 Dextrose/Water 250 ML ASDIR PRN 07/16 544 AC IV 07/17 043 Dextrose/Water 125 ML ASDIR PRN 07/16 0445 CAN IV 07/17 043 Dextrose/Water 250 ML ASDIR PRN 07/16 0445 CAN IV 07/17 043 Hormones And Synthetic Substit Sig/Lillian Start time Last Medication Dose Route Stop Time Status Admin Insulin Human Lispro See Dose AC HS 07/16 0730 AC Insts (1) SUBQ 07/18 431 Glucagon 1 MG ASDIR PRN 07/16 544 AC IM 07/17 043 Glucagon 1 MG ASDIR PRN 07/16 544 CAN IM 07/17 043 Dose Instructions: (1)Insulin Human Lispro: SLIDING SCALE Patient Discharge Departure Vital Signs/Condition Vital Signs First Documented: Result Date Time Pulse Ox 98 07/16 0348 B/P 122/58 07/16 0348 B/P Mean 79 07/16 0348 O2 Delivery Nasal cannula 07/16 0348 O2 Flow Rate 4.680299 07/16 0348 Temp 36.7 07/16 0348 Pulse 86 07/16 0348 Resp 20 07/16 0348 Last Documented: Result Date Time O2 Delivery Nasal cannula 07/16 0431 O2 Flow Rate 4.243271 07/16 0431 Pulse Ox 98 07/16 0348 B/P 122/58 07/16 0348 B/P Mean 79 07/16 0348 Temp 36.7 07/16 0348 Pulse 86 07/16 0348 Resp 20 07/16 0348 All vital signs available at the time of this en try have been reviewed. Clinical Impression Clinical Impression Primary Impression: Pneumonia Secondary Impressions: Cough, COVID-19 virus inf ection Disposition Decision Admit Admit Physician Name Olena Bowers MD Admit Physician Hospitalist Request Time 05 Request Date 07/17/19 )( Admission Accepts Yes Discharge/Care Plan Referrals No Primary or Family Physician (PCP/Family) Electronically Signed by Alma Guan MD on at 0811 Addendum 1: 08/09/19 1635 by Alma Guan MD Patient Addendum Addendum TIME EDIT: ADMITTED AT 0534 Electronically Signed by Alma Guan MD on at 1635 RPT #:[id number] END OF REPORT 2019-04-09 Radiation Dose CTDIVOL = 0 (mGy): DLP = 525.6 (m Gy-cm) [facility] 16:20:24-00:00 PROCEDURE INFORMATION: Exam: CT Abdomen And Pelvis With Contrast Exam date and time: 04/09/2019 4:45 PM Age: 64 years old Clinical indication: Abdominal pain; Generalized ; Additional info: /abd oain TECHNIQUE: Imaging protocol: Computed tomography of the abd omen and pelvis with intravenous contrast. Total DLP: 525.6 mGy-cm Radiation optimization: All CT scans at this facility use at least one of these dose optimization techniques: automated exposure control; mA and/or kV adjustment per patient size (includes targeted e xams where dose is matched to clinical indication); or iterative reconstructio n. Contrast material: OMNIPAQUE 300; Contra st volume: 100 ml; Contrast route: IV; COMPARISON: CR PELVIS AP DX 10/13/2015 5:06 AM FINDINGS: Liver: Normal. No mass. Gallbladder and bile ducts: The patient is statu s post cholecystectomy. Pancreas: Normal. No ductal dilation. Spleen: Normal. No splenomegaly. Adrenals: Normal. No mass. Kidneys and ureters: Multiple simple bernardo al cysts measuring up to 7.2 cm on the left. Stomach and bowel: Diverticulosis of the colon i s noted, without surrounding inflammation. The small neena l demonstrates a normal course and caliber. A small duodenal diverticulum is noted on series 2 image 67. Appendix: No evidence of appendicitis. Intraperitoneal space: Unremarkable. No free air . No significant fluid collection. Vasculature: Atherosclerosis of the aorta, witho ut aneursymal dilatation. Lymph nodes: Unremarkable. No enlarged lymph nod es. Bladder: Unremarkable as visualized. Reproductive: Hysterectomy. Bones/joints: Nonspecific sclerotic lesions in t he iliac bones. No acute fracture. Soft tissues: Fat containing umbilical hernia. IMPRESSION: No acute abnormality in the abdomen or pelvis. Multiple renal cysts measuring up to 7.2 cm on t he left. Diverticulosis of the colon. Nonspecific small sclerotic lesions in the iliac bones. Robbi Samuel MD On 04/09/2019 17:12:22; [id number] 2019-04-09 PROCEDURE INFORMATION: [facility] 16:20:24-00:00 Exam: XR Chest, 1 View Exam date and time: 04/09/2019 4:34 PM Age: 64 years old Clinical indication: Other: Abd pain; Additional info: /abd oain TECHNIQUE: Imaging protocol: XR of the chest Views: 1 view. COMPARISON: No relevant prior studies available. FINDINGS: Lungs: Normal lung volumes. No consolidation. Pleural space: Unremarkable. No pleural effusion . No pneumothorax. Heart/Mediastinum: Heart size is within normal l imits. Vasculature is unremarkable. Bones/joints: There has been previous cervical A CDF. IMPRESSION: No acute cardiopulmonary findings. Omi Ross MD On 04/09/2019 16:53:17; VR-T [id number] 2019-04-09 Radiation Dose CTDIVOL = 0 (mGy): DLP = 525.6 (m Gy-cm) [facility] 16:20:24-00:00 PROCEDURE INFORMATION: Exam: CT Abdomen And Pelvis With Contrast Exam date and time: 04/09/2019 4:45 PM Age: 64 years old Clinical indication: Abdominal pain; Generalized ; Additional info: /abd oain TECHNIQUE: Imaging protocol: Computed tomography of the abd omen and pelvis with intravenous contrast. Total DLP: 525.6 mGy-cm Radiation optimization: All CT scans at this facility use at least one of these dose optimization techniques: automated exposure control; mA and/or kV adjustment per patient size (includes targeted e xams where dose is matched to clinical indication); or iterative reconstructio n. Contrast material: OMNIPAQUE 300; Contra st volume: 100 ml; Contrast route: IV; COMPARISON: CR PELVIS AP DX 10/13/2015 5:06 AM FINDINGS: Liver: Normal. No mass. Gallbladder and bile ducts: The patient is statu s post cholecystectomy. Pancreas: Normal. No ductal dilation. Spleen: Normal. No splenomegaly. Adrenals: Normal. No mass. Kidneys and ureters: Multiple simple bernardo al cysts measuring up to 7.2 cm on the left. Stomach and bowel: Diverticulosis of the colon i s noted, without surrounding inflammation. The small neena l demonstrates a normal course and caliber. A small duodenal diverticulum is noted on series 2 image 67. Appendix: No evidence of appendicitis. Intraperitoneal space: Unremarkable. No free air . No significant fluid collection. Vasculature: Atherosclerosis of the aorta, witho ut aneursymal dilatation. Lymph nodes: Unremarkable. No enlarged lymph nod es. Bladder: Unremarkable as visualized. Reproductive: Hysterectomy. Bones/joints: Nonspecific sclerotic lesions in t he iliac bones. No acute fracture. Soft tissues: Fat containing umbilical hernia. IMPRESSION: No acute abnormality in the abdomen or pelvis. Multiple renal cysts measuring up to 7.2 cm on t he left. Diverticulosis of the colon. Nonspecific small sclerotic lesions in the iliac bones. Robbi Samuel MD On 04/09/2019 17:12:22; [id number] 2019-04-09 PROCEDURE INFORMATION: [facility] 16:20:24-:00 Exam: XR Chest, 1 View Exam date and time: 04/09/2019 4:34 PM Age: 64 years old Clinical indication: Other: Abd pain; Additional info: /abd oain TECHNIQUE: Imaging protocol: XR of the chest Views: 1 view. COMPARISON: No relevant prior studies available. FINDINGS: Lungs: Normal lung volumes. No consolidation. Pleural space: Unremarkable. No pleural effusion . No pneumothorax. Heart/Mediastinum: Heart size is within normal l imits. Vasculature is unremarkable. Bones/joints: There has been previous cervical A CDF. IMPRESSION: No acute cardiopulmonary findings. Omi Ross MD On 04/09/2019 16:53:17; VR-T [id number] 2019-04-09 Radiation Dose CTDIVOL = 0 (mGy): DLP = 525.6 (m Gy-cm) [facility] 16:20:24-00:00 PROCEDURE INFORMATION: Exam: CT Abdomen And Pelvis With Contrast Exam date and time: 04/09/2019 4:45 PM Age: 64 years old Clinical indication: Abdominal pain; Generalized ; Additional info: /abd oain TECHNIQUE: Imaging protocol: Computed tomography of the abd omen and pelvis with intravenous contrast. Total DLP: 525.6 mGy-cm Radiation optimization: All CT scans at this facility use at least one of these dose optimization techniques: automated exposure control; mA and/or kV adjustment per patient size (includes targeted e xams where dose is matched to clinical indication); or iterative reconstructio n. Contrast material: OMNIPAQUE 300; Contra st volume: 100 ml; Contrast route: IV; COMPARISON: CR PELVIS AP DX 10/13/2015 5:06 AM FINDINGS: Liver: Normal. No mass. Gallbladder and bile ducts: The patient is statu s post cholecystectomy. Pancreas: Normal. No ductal dilation. Spleen: Normal. No splenomegaly. Adrenals: Normal. No mass. Kidneys and ureters: Multiple simple bernardo al cysts measuring up to 7.2 cm on the left. Stomach and bowel: Diverticulosis of the colon i s noted, without surrounding inflammation. The small neena l demonstrates a normal course and caliber. A small duodenal diverticulum is noted on series 2 image 67. Appendix: No evidence of appendicitis. Intraperitoneal space: Unremarkable. No free air . No significant fluid collection. Vasculature: Atherosclerosis of the aorta, witho ut aneursymal dilatation. Lymph nodes: Unremarkable. No enlarged lymph nod es. Bladder: Unremarkable as visualized. Reproductive: Hysterectomy. Bones/joints: Nonspecific sclerotic lesions in t he iliac bones. No acute fracture. Soft tissues: Fat containing umbilical hernia. IMPRESSION: No acute abnormality in the abdomen or pelvis. Multiple renal cysts measuring up to 7.2 cm on t he left. Diverticulosis of the colon. Nonspecific small sclerotic lesions in the iliac bones. Robbi Samuel MD On 04/09/2019 17:12:22; [id number] 2019-04-09 [facility] 16:20:24-00:00 Exam: XR Chest, 1 View Exam date and time: 04/09/2019 4:34 PM Age: 64 years old Clinical indication: Other: Abd pain; Additional info: /abd oain TECHNIQUE: Imaging protocol: XR of the chest Views: 1 view. COMPARISON: No relevant prior studies available. FINDINGS: Lungs: Normal lung volumes. No consolidation. Pleural space: Unremarkable. No pleural effusion . No pneumothorax. Heart/Mediastinum: Heart size is within normal l imits. Vasculature is unremarkable. Bones/joints: There has been previous cervical A CDF. IMPRESSION: No acute cardiopulmonary findings. Omi Ross MD On 04/09/2019 16:53:17; VR-T [id number] 2019-04-09 Radiation Dose CTDIVOL = 0 (mGy): DLP = 525.6 (m Gy-cm) [facility] 16:20:24-00:00 PROCEDURE INFORMATION: Exam: CT Abdomen And Pelvis With Contrast Exam date and time: 04/09/2019 4:45 PM Age: 64 years old Clinical indication: Abdominal pain; Generalized ; Additional info: /abd oain TECHNIQUE: Imaging protocol: Computed tomography of the abd omen and pelvis with intravenous contrast. Total DLP: 525.6 mGy-cm Radiation optimization: All CT scans at this facility use at least one of these dose optimization techniques: automated exposure control; mA and/or kV adjustment per patient size (includes targeted e xams where dose is matched to clinical indication); or iterative reconstructio n. Contrast material: OMNIPAQUE 300; Contra st volume: 100 ml; Contrast route: IV; COMPARISON: CR PELVIS AP DX 10/13/2015 5:06 AM FINDINGS: Liver: Normal. No mass. Gallbladder and bile ducts: The patient is statu s post cholecystectomy. Pancreas: Normal. No ductal dilation. Spleen: Normal. No splenomegaly. Adrenals: Normal. No mass. Kidneys and ureters: Multiple simple bernardo al cysts measuring up to 7.2 cm on the left. Stomach and bowel: Diverticulosis of the colon i s noted, without surrounding inflammation. The small neena l demonstrates a normal course and caliber. A small duodenal diverticulum is noted on series 2 image 67. Appendix: No evidence of appendicitis. Intraperitoneal space: Unremarkable. No free air . No significant fluid collection. Vasculature: Atherosclerosis of the aorta, witho ut aneursymal dilatation. Lymph nodes: Unremarkable. No enlarged lymph nod es. Bladder: Unremarkable as visualized. Reproductive: Hysterectomy. Bones/joints: Nonspecific sclerotic lesions in t he iliac bones. No acute fracture. Soft tissues: Fat containing umbilical hernia. IMPRESSION: No acute abnormality in the abdomen or pelvis. Multiple renal cysts measuring up to 7.2 cm on t he left. Diverticulosis of the colon. Nonspecific small sclerotic lesions in the iliac bones. Robbi Samuel MD On 04/09/2019 17:12:22; [id number] 2019-04-09 PROCEDURE INFORMATION: [facility] 16:20:24-00:00 Exam: XR Chest, 1 View Exam date and time: 04/09/2019 4:34 PM Age: 64 years old Clinical indication: Other: Abd pain; Additional info: /abd oain TECHNIQUE: Imaging protocol: XR of the chest Views: 1 view. COMPARISON: No relevant prior studies available. FINDINGS: Lungs: Normal lung volumes. No consolidation. Pleural space: Unremarkable. No pleural effusion . No pneumothorax. Heart/Mediastinum: Heart size is within normal l imits. Vasculature is unremarkable. Bones/joints: There has been previous cervical A CDF. IMPRESSION: No acute cardiopulmonary findings. Omi Ross MD On 04/09/2019 16:53:17; VR-T [id number] 2019-04-09 Radiation Dose CTDIVOL = 0 (mGy): DLP = 525.6 (m Gy-cm) [facility] 16:20:24-00:00 PROCEDURE INFORMATION: Exam: CT Abdomen And Pelvis With Contrast Exam date and time: 04/09/2019 4:45 PM Age: 64 years old Clinical indication: Abdominal pain; Generalized ; Additional info: /abd oain TECHNIQUE: Imaging protocol: Computed tomography of the abd omen and pelvis with intravenous contrast. Total DLP: 525.6 mGy-cm Radiation optimization: All CT scans at this facility use at least one of these dose optimization techniques: automated exposure control; mA and/or kV adjustment per patient size (includes targeted e xams where dose is matched to clinical indication); or iterative reconstructio n. Contrast material: OMNIPAQUE 300; Contra st volume: 100 ml; Contrast route: IV; COMPARISON: CR PELVIS AP DX 10/13/2015 5:06 AM FINDINGS: Liver: Normal. No mass. Gallbladder and bile ducts: The patient is statu s post cholecystectomy. Pancreas: Normal. No ductal dilation. Spleen: Normal. No splenomegaly. Adrenals: Normal. No mass. Kidneys and ureters: Multiple simple bernardo al cysts measuring up to 7.2 cm on the left. Stomach and bowel: Diverticulosis of the colon i s noted, without surrounding inflammation. The small neena l demonstrates a normal course and caliber. A small duodenal diverticulum is noted on series 2 image 67. Appendix: No evidence of appendicitis. Intraperitoneal space: Unremarkable. No free air . No significant fluid collection. Vasculature: Atherosclerosis of the aorta, witho ut aneursymal dilatation. Lymph nodes: Unremarkable. No enlarged lymph nod es. Bladder: Unremarkable as visualized. Reproductive: Hysterectomy. Bones/joints: Nonspecific sclerotic lesions in t he iliac bones. No acute fracture. Soft tissues: Fat containing umbilical hernia. IMPRESSION: No acute abnormality in the abdomen or pelvis. Multiple renal cysts measuring up to 7.2 cm on t he left. Diverticulosis of the colon. Nonspecific small sclerotic lesions in the iliac bones. Robbi Samuel MD On 04/09/2019 17:12:22; [id number]___[id number] 2019-04-09 PROCEDURE INFORMATION: [facility] 16:20:24-00:00 Exam: XR Chest, 1 View Exam date and time: 04/09/2019 4:34 PM Age: 64 years old Clinical indication: Other: Abd pain; Additional info: /abd oain TECHNIQUE: Imaging protocol: XR of the chest Views: 1 view. COMPARISON: No relevant prior studies available. FINDINGS: Lungs: Normal lung volumes. No consolidation. Pleural space: Unremarkable. No pleural effusion . No pneumothorax. Heart/Mediastinum: Heart size is within normal l imits. Vasculature is unremarkable. Bones/joints: There has been previous cervical A CDF. IMPRESSION: No acute cardiopulmonary findings. Omi Ross MD On 04/09/2019 16:53:17; VR-T [id number] 2019-04-09 Radiation Dose CTDIVOL = 0 (mGy): DLP = 525.6 (m Gy-cm) [facility] 16:20:24-00:00 PROCEDURE INFORMATION: Exam: CT Abdomen And Pelvis With Contrast Exam date and time: 04/09/2019 4:45 PM Age: 64 years old Clinical indication: Abdominal pain; Generalized ; Additional info: /abd oain TECHNIQUE: Imaging protocol: Computed tomography of the abd omen and pelvis with intravenous contrast. Total DLP: 525.6 mGy-cm Radiation optimization: All CT scans at this facility use at least one of these dose optimization techniques: automated exposure control; mA and/or kV adjustment per patient size (includes targeted e xams where dose is matched to clinical indication); or iterative reconstructio n. Contrast material: OMNIPAQUE 300; Contra st volume: 100 ml; Contrast route: IV; COMPARISON: CR PELVIS AP DX 10/13/2015 5:06 AM FINDINGS: Liver: Normal. No mass. Gallbladder and bile ducts: The patient is statu s post cholecystectomy. Pancreas: Normal. No ductal dilation. Spleen: Normal. No splenomegaly. Adrenals: Normal. No mass. Kidneys and ureters: Multiple simple bernardo al cysts measuring up to 7.2 cm on the left. Stomach and bowel: Diverticulosis of the colon i s noted, without surrounding inflammation. The small neena l demonstrates a normal course and caliber. A small duodenal diverticulum is noted on series 2 image 67. Appendix: No evidence of appendicitis. Intraperitoneal space: Unremarkable. No free air . No significant fluid collection. Vasculature: Atherosclerosis of the aorta, witho ut aneursymal dilatation. Lymph nodes: Unremarkable. No enlarged lymph nod es. Bladder: Unremarkable as visualized. Reproductive: Hysterectomy. Bones/joints: Nonspecific sclerotic lesions in t he iliac bones. No acute fracture. Soft tissues: Fat containing umbilical hernia. IMPRESSION: No acute abnormality in the abdomen or pelvis. Multiple renal cysts measuring up to 7.2 cm on t he left. Diverticulosis of the colon. Nonspecific small sclerotic lesions in the iliac bones. Robbi Samuel MD On 04/09/2019 17:12:22; [id number] 2019-04-09 PROCEDURE INFORMATION: [facility] 16:20:24-00:00 Exam: XR Chest, 1 View Exam date and time: 04/09/2019 4:34 PM Age: 64 years old Clinical indication: Other: Abd pain; Additional info: /abd oain TECHNIQUE: Imaging protocol: XR of the chest Views: 1 view. COMPARISON: No relevant prior studies available. FINDINGS: Lungs: Normal lung volumes. No consolidation. Pleural space: Unremarkable. No pleural effusion . No pneumothorax. Heart/Mediastinum: Heart size is within normal l imits. Vasculature is unremarkable. Bones/joints: There has been previous cervical A CDF. IMPRESSION: No acute cardiopulmonary findings. Omi Ross MD On 04/09/2019 16:53:17; VR-T [id number] 2019-04-09 Radiation Dose CTDIVOL = 0 (mGy): DLP = 525.6 (m Gy-cm) [facility] 16:20:24-00:00 PROCEDURE INFORMATION: Exam: CT Abdomen And Pelvis With Contrast Exam date and time: 04/09/2019 4:45 PM Age: 64 years old Clinical indication: Abdominal pain; Generalized ; Additional info: /abd oain TECHNIQUE: Imaging protocol: Computed tomography of the abd omen and pelvis with intravenous contrast. Total DLP: 525.6 mGy-cm Radiation optimization: All CT scans at this facility use at least one of these dose optimization techniques: automated exposure control; mA and/or kV adjustment per patient size (includes targeted e xams where dose is matched to clinical indication); or iterative reconstructio n. Contrast material: OMNIPAQUE 300; Contra st volume: 100 ml; Contrast route: IV; COMPARISON: CR PELVIS AP DX 10/13/2015 5:06 AM FINDINGS: Liver: Normal. No mass. Gallbladder and bile ducts: The patient is statu s post cholecystectomy. Pancreas: Normal. No ductal dilation. Spleen: Normal. No splenomegaly. Adrenals: Normal. No mass. Kidneys and ureters: Multiple simple bernardo al cysts measuring up to 7.2 cm on the left. Stomach and bowel: Diverticulosis of the colon i s noted, without surrounding inflammation. The small neena l demonstrates a normal course and caliber. A small duodenal diverticulum is noted on series 2 image 67. Appendix: No evidence of appendicitis. Intraperitoneal space: Unremarkable. No free air . No significant fluid collection. Vasculature: Atherosclerosis of the aorta, witho ut aneursymal dilatation. Lymph nodes: Unremarkable. No enlarged lymph nod es. Bladder: Unremarkable as visualized. Reproductive: Hysterectomy. Bones/joints: Nonspecific sclerotic lesions in t he iliac bones. No acute fracture. Soft tissues: Fat containing umbilical hernia. IMPRESSION: No acute abnormality in the abdomen or pelvis. Multiple renal cysts measuring up to 7.2 cm on t he left. Diverticulosis of the colon. Nonspecific small sclerotic lesions in the iliac bones. Robbi Samuel MD On 04/09/2019 17:12:22; [id number] 2019-04-09 PROCEDURE INFORMATION: [facility] 16:20:24-00:00 Exam: XR Chest, 1 View Exam date and time: 04/09/2019 4:34 PM Age: 64 years old Clinical indication: Other: Abd pain; Additional info: /abd oain TECHNIQUE: Imaging protocol: XR of the chest Views: 1 view. COMPARISON: No relevant prior studies available. FINDINGS: Lungs: Normal lung volumes. No consolidation. Pleural space: Unremarkable. No pleural effusion . No pneumothorax. Heart/Mediastinum: Heart size is within normal l imits. Vasculature is unremarkable. Bones/joints: There has been previous cervical A CDF. IMPRESSION: No acute cardiopulmonary findings. Omi Ross MD On 04/09/2019 16:53:17; VR-T [id number] 2019-04-09 Radiation Dose CTDIVOL = 0 (mGy): DLP = 525.6 (m Gy-cm) [facility] 16:20:24-00:00 PROCEDURE INFORMATION: Exam: CT Abdomen And Pelvis With Contrast Exam date and time: 04/09/2019 4:45 PM Age: 64 years old Clinical indication: Abdominal pain; Generalized ; Additional info: /abd oain TECHNIQUE: Imaging protocol: Computed tomography of the abd omen and pelvis with intravenous contrast. Total DLP: 525.6 mGy-cm Radiation optimization: All CT scans at this facility use at least one of these dose optimization techniques: automated exposure control; mA and/or kV adjustment per patient size (includes targeted e xams where dose is matched to clinical indication); or iterative reconstructio n. Contrast material: OMNIPAQUE 300; Contra st volume: 100 ml; Contrast route: IV; COMPARISON: CR PELVIS AP DX 10/13/2015 5:06 AM FINDINGS: Liver: Normal. No mass. Gallbladder and bile ducts: The patient is statu s post cholecystectomy. Pancreas: Normal. No ductal dilation. Spleen: Normal. No splenomegaly. Adrenals: Normal. No mass. Kidneys and ureters: Multiple simple bernardo al cysts measuring up to 7.2 cm on the left. Stomach and bowel: Diverticulosis of the colon i s noted, without surrounding inflammation. The small neena l demonstrates a normal course and caliber. A small duodenal diverticulum is noted on series 2 image 67. Appendix: No evidence of appendicitis. Intraperitoneal space: Unremarkable. No free air . No significant fluid collection. Vasculature: Atherosclerosis of the aorta, witho ut aneursymal dilatation. Lymph nodes: Unremarkable. No enlarged lymph nod es. Bladder: Unremarkable as visualized. Reproductive: Hysterectomy. Bones/joints: Nonspecific sclerotic lesions in t he iliac bones. No acute fracture. Soft tissues: Fat containing umbilical hernia. IMPRESSION: No acute abnormality in the abdomen or pelvis. Multiple renal cysts measuring up to 7.2 cm on t he left. Diverticulosis of the colon. Nonspecific small sclerotic lesions in the iliac bones. Robbi Samuel MD On 04/09/2019 17:12:22; [id number] 2019-04-09 PROCEDURE INFORMATION: [facility] 16:20:24-00:00 Exam: XR Chest, 1 View Exam date and time: 04/09/2019 4:34 PM Age: 64 years old Clinical indication: Other: Abd pain; Additional info: /abd oain TECHNIQUE: Imaging protocol: XR of the chest Views: 1 view. COMPARISON: No relevant prior studies available. FINDINGS: Lungs: Normal lung volumes. No consolidation. Pleural space: Unremarkable. No pleural effusion . No pneumothorax. Heart/Mediastinum: Heart size is within normal l imits. Vasculature is unremarkable. Bones/joints: There has been previous cervical A CDF. IMPRESSION: No acute cardiopulmonary findings. Omi Ross MD On 04/09/2019 16:53:17; VR-T [id number] 2019-04-09 Radiation Dose CTDIVOL = 0 (mGy): DLP = 525.6 (m Gy-cm) [facility] 16:20:24-00:00 PROCEDURE INFORMATION: Exam: CT Abdomen And Pelvis With Contrast Exam date and time: 04/09/2019 4:45 PM Age: 64 years old Clinical indication: Abdominal pain; Generalized ; Additional info: /abd oain TECHNIQUE: Imaging protocol: Computed tomography of the abd omen and pelvis with intravenous contrast. Total DLP: 525.6 mGy-cm Radiation optimization: All CT scans at this facility use at least one of these dose optimization techniques: automated exposure control; mA and/or kV adjustment per patient size (includes targeted e xams where dose is matched to clinical indication); or iterative reconstructio n. Contrast material: OMNIPAQUE 300; Contra st volume: 100 ml; Contrast route: IV; COMPARISON: CR PELVIS AP DX 10/13/2015 5:06 AM FINDINGS: Liver: Normal. No mass. Gallbladder and bile ducts: The patient is statu s post cholecystectomy. Pancreas: Normal. No ductal dilation. Spleen: Normal. No splenomegaly. Adrenals: Normal. No mass. Kidneys and ureters: Multiple simple bernardo al cysts measuring up to 7.2 cm on the left. Stomach and bowel: Diverticulosis of the colon i s noted, without surrounding inflammation. The small neena l demonstrates a normal course and caliber. A small duodenal diverticulum is noted on series 2 image 67. Appendix: No evidence of appendicitis. Intraperitoneal space: Unremarkable. No free air . No significant fluid collection. Vasculature: Atherosclerosis of the aorta, witho ut aneursymal dilatation. Lymph nodes: Unremarkable. No enlarged lymph nod es. Bladder: Unremarkable as visualized. Reproductive: Hysterectomy. Bones/joints: Nonspecific sclerotic lesions in t he iliac bones. No acute fracture. Soft tissues: Fat containing umbilical hernia. IMPRESSION: No acute abnormality in the abdomen or pelvis. Multiple renal cysts measuring up to 7.2 cm on t he left. Diverticulosis of the colon. Nonspecific small sclerotic lesions in the iliac bones. Robbi Samuel MD On 04/09/2019 17:12:22; [id number] 2019-04-09 PROCEDURE INFORMATION: [facility] 16:20:24-00:00 Exam: XR Chest, 1 View Exam date and time: 04/09/2019 4:34 PM Age: 64 years old Clinical indication: Other: Abd pain; Additional info: /abd oain TECHNIQUE: Imaging protocol: XR of the chest Views: 1 view. COMPARISON: No relevant prior studies available. FINDINGS: Lungs: Normal lung volumes. No consolidation. Pleural space: Unremarkable. No pleural effusion . No pneumothorax. Heart/Mediastinum: Heart size is within normal l imits. Vasculature is unremarkable. Bones/joints: There has been previous cervical A CDF. IMPRESSION: No acute cardiopulmonary findings. Omi Ross MD On 04/09/2019 16:53:17; VR-T [id number] 2019-04-09 Radiation Dose CTDIVOL = 0 (mGy): DLP = 525.6 (m Gy-cm) [facility] 16:20:24-00:00 PROCEDURE INFORMATION: Exam: CT Abdomen And Pelvis With Contrast Exam date and time: 04/09/2019 4:45 PM Age: 64 years old Clinical indication: Abdominal pain; Generalized ; Additional info: /abd oain TECHNIQUE: Imaging protocol: Computed tomography of the abd omen and pelvis with intravenous contrast. Total DLP: 525.6 mGy-cm Radiation optimization: All CT scans at this facility use at least one of these dose optimization techniques: automated exposure control; mA and/or kV adjustment per patient size (includes targeted e xams where dose is matched to clinical indication); or iterative reconstructio n. Contrast material: OMNIPAQUE 300; Contra st volume: 100 ml; Contrast route: IV; COMPARISON: CR PELVIS AP DX 10/13/2015 5:06 AM FINDINGS: Liver: Normal. No mass. Gallbladder and bile ducts: The patient is statu s post cholecystectomy. Pancreas: Normal. No ductal dilation. Spleen: Normal. No splenomegaly. Adrenals: Normal. No mass. Kidneys and ureters: Multiple simple bernardo al cysts measuring up to 7.2 cm on the left. Stomach and bowel: Diverticulosis of the colon i s noted, without surrounding inflammation. The small neena l demonstrates a normal course and caliber. A small duodenal diverticulum is noted on series 2 image 67. Appendix: No evidence of appendicitis. Intraperitoneal space: Unremarkable. No free air . No significant fluid collection. Vasculature: Atherosclerosis of the aorta, witho ut aneursymal dilatation. Lymph nodes: Unremarkable. No enlarged lymph nod es. Bladder: Unremarkable as visualized. Reproductive: Hysterectomy. Bones/joints: Nonspecific sclerotic lesions in t he iliac bones. No acute fracture. Soft tissues: Fat containing umbilical hernia. IMPRESSION: No acute abnormality in the abdomen or pelvis. Multiple renal cysts measuring up to 7.2 cm on t he left. Diverticulosis of the colon. Nonspecific small sclerotic lesions in the iliac bones. Robbi Samuel MD On 04/09/2019 17:12:22; [id number] 2019-04-09 PROCEDURE INFORMATION: [facility] 16:20:24-:00 Exam: XR Chest, 1 View Exam date and time: 04/09/2019 4:34 PM Age: 64 years old Clinical indication: Other: Abd pain; Additional info: /abd oain TECHNIQUE: Imaging protocol: XR of the chest Views: 1 view. COMPARISON: No relevant prior studies available. FINDINGS: Lungs: Normal lung volumes. No consolidation. Pleural space: Unremarkable. No pleural effusion . No pneumothorax. Heart/Mediastinum: Heart size is within normal l imits. Vasculature is unremarkable. Bones/joints: There has been previous cervical A CDF. IMPRESSION: No acute cardiopulmonary findings. Omi Ross MD On 04/09/2019 16:53:17; VR-T [id number] 2019-04-09 Radiation Dose CTDIVOL = 0 (mGy): DLP = 525.6 (m Gy-cm) [facility] 16:20:24-00:00 PROCEDURE INFORMATION: Exam: CT Abdomen And Pelvis With Contrast Exam date and time: 04/09/2019 4:45 PM Age: 64 years old Clinical indication: Abdominal pain; Generalized ; Additional info: /abd oain TECHNIQUE: Imaging protocol: Computed tomography of the abd omen and pelvis with intravenous contrast. Total DLP: 525.6 mGy-cm Radiation optimization: All CT scans at this facility use at least one of these dose optimization techniques: automated exposure control; mA and/or kV adjustment per patient size (includes targeted e xams where dose is matched to clinical indication); or iterative reconstructio n. Contrast material: OMNIPAQUE 300; Contra st volume: 100 ml; Contrast route: IV; COMPARISON: CR PELVIS AP DX 10/13/2015 5:06 AM FINDINGS: Liver: Normal. No mass. Gallbladder and bile ducts: The patient is statu s post cholecystectomy. Pancreas: Normal. No ductal dilation. Spleen: Normal. No splenomegaly. Adrenals: Normal. No mass. Kidneys and ureters: Multiple simple bernardo al cysts measuring up to 7.2 cm on the left. Stomach and bowel: Diverticulosis of the colon i s noted, without surrounding inflammation. The small neena l demonstrates a normal course and caliber. A small duodenal diverticulum is noted on series 2 image 67. Appendix: No evidence of appendicitis. Intraperitoneal space: Unremarkable. No free air . No significant fluid collection. Vasculature: Atherosclerosis of the aorta, witho ut aneursymal dilatation. Lymph nodes: Unremarkable. No enlarged lymph nod es. Bladder: Unremarkable as visualized. Reproductive: Hysterectomy. Bones/joints: Nonspecific sclerotic lesions in t he iliac bones. No acute fracture. Soft tissues: Fat containing umbilical hernia. IMPRESSION: No acute abnormality in the abdomen or pelvis. Multiple renal cysts measuring up to 7.2 cm on t he left. Diverticulosis of the colon. Nonspecific small sclerotic lesions in the iliac bones. Robbi Samuel MD On 04/09/2019 17:12:22; [id number] 2019-04-09 PROCEDURE INFORMATION: [facility] 16:20:24-00:00 Exam: XR Chest, 1 View Exam date and time: 04/09/2019 4:34 PM Age: 64 years old Clinical indication: Other: Abd pain; Additional info: /abd oain TECHNIQUE: Imaging protocol: XR of the chest Views: 1 view. COMPARISON: No relevant prior studies available. FINDINGS: Lungs: Normal lung volumes. No consolidation. Pleural space: Unremarkable. No pleural effusion . No pneumothorax. Heart/Mediastinum: Heart size is within normal l imits. Vasculature is unremarkable. Bones/joints: There has been previous cervical A CDF. IMPRESSION: No acute cardiopulmonary findings. Omi Ross MD On 04/09/2019 16:53:17; VR-T [id number] 2019-04-09 Radiation Dose CTDIVOL = 0 (mGy): DLP = 525.6 (m Gy-cm) [facility] 16:20:24-00:00 PROCEDURE INFORMATION: Exam: CT Abdomen And Pelvis With Contrast Exam date and time: 04/09/2019 4:45 PM Age: 64 years old Clinical indication: Abdominal pain; Generalized ; Additional info: /abd oain TECHNIQUE: Imaging protocol: Computed tomography of the abd omen and pelvis with intravenous contrast. Total DLP: 525.6 mGy-cm Radiation optimization: All CT scans at this facility use at least one of these dose optimization techniques: automated exposure control; mA and/or kV adjustment per patient size (includes targeted e xams where dose is matched to clinical indication); or iterative reconstructio n. Contrast material: OMNIPAQUE 300; Contra st volume: 100 ml; Contrast route: IV; COMPARISON: CR PELVIS AP DX 10/13/2015 5:06 AM FINDINGS: Liver: Normal. No mass. Gallbladder and bile ducts: The patient is statu s post cholecystectomy. Pancreas: Normal. No ductal dilation. Spleen: Normal. No splenomegaly. Adrenals: Normal. No mass. Kidneys and ureters: Multiple simple bernardo al cysts measuring up to 7.2 cm on the left. Stomach and bowel: Diverticulosis of the colon i s noted, without surrounding inflammation. The small neena l demonstrates a normal course and caliber. A small duodenal diverticulum is noted on series 2 image 67. Appendix: No evidence of appendicitis. Intraperitoneal space: Unremarkable. No free air . No significant fluid collection. Vasculature: Atherosclerosis of the aorta, witho ut aneursymal dilatation. Lymph nodes: Unremarkable. No enlarged lymph nod es. Bladder: Unremarkable as visualized. Reproductive: Hysterectomy. Bones/joints: Nonspecific sclerotic lesions in t he iliac bones. No acute fracture. Soft tissues: Fat containing umbilical hernia. IMPRESSION: No acute abnormality in the abdomen or pelvis. Multiple renal cysts measuring up to 7.2 cm on t he left. Diverticulosis of the colon. Nonspecific small sclerotic lesions in the iliac bones. Robbi Samuel MD On 04/09/2019 17:12:22; [id number] 2019-04-09 PROCEDURE INFORMATION: [facility] 16:20:24-00:00 Exam: XR Chest, 1 View Exam date and time: 04/09/2019 4:34 PM Age: 64 years old Clinical indication: Other: Abd pain; Additional info: /abd oain TECHNIQUE: Imaging protocol: XR of the chest Views: 1 view. COMPARISON: No relevant prior studies available. FINDINGS: Lungs: Normal lung volumes. No consolidation. Pleural space: Unremarkable. No pleural effusion . No pneumothorax. Heart/Mediastinum: Heart size is within normal l imits. Vasculature is unremarkable. Bones/joints: There has been previous cervical A CDF. IMPRESSION: No acute cardiopulmonary findings. Omi Ross MD On 04/09/2019 16:53:17; VR-T [id number] 2019-04-09 Radiation Dose CTDIVOL = 0 (mGy): DLP = 525.6 (m Gy-cm) [facility] 16:20:24-00:00 PROCEDURE INFORMATION: Exam: CT Abdomen And Pelvis With Contrast Exam date and time: 04/09/2019 4:45 PM Age: 64 years old Clinical indication: Abdominal pain; Generalized ; Additional info: /abd oain TECHNIQUE: Imaging protocol: Computed tomography of the abd omen and pelvis with intravenous contrast. Total DLP: 525.6 mGy-cm Radiation optimization: All CT scans at this facility use at least one of these dose optimization techniques: automated exposure control; mA and/or kV adjustment per patient size (includes targeted e xams where dose is matched to clinical indication); or iterative reconstructio n. Contrast material: OMNIPAQUE 300; Contra st volume: 100 ml; Contrast route: IV; COMPARISON: CR PELVIS AP DX 10/13/2015 5:06 AM FINDINGS: Liver: Normal. No mass. Gallbladder and bile ducts: The patient is statu s post cholecystectomy. Pancreas: Normal. No ductal dilation. Spleen: Normal. No splenomegaly. Adrenals: Normal. No mass. Kidneys and ureters: Multiple simple bernardo al cysts measuring up to 7.2 cm on the left. Stomach and bowel: Diverticulosis of the colon i s noted, without surrounding inflammation. The small neena l demonstrates a normal course and caliber. A small duodenal diverticulum is noted on series 2 image 67. Appendix: No evidence of appendicitis. Intraperitoneal space: Unremarkable. No free air . No significant fluid collection. Vasculature: Atherosclerosis of the aorta, witho ut aneursymal dilatation. Lymph nodes: Unremarkable. No enlarged lymph nod es. Bladder: Unremarkable as visualized. Reproductive: Hysterectomy. Bones/joints: Nonspecific sclerotic lesions in t he iliac bones. No acute fracture. Soft tissues: Fat containing umbilical hernia. IMPRESSION: No acute abnormality in the abdomen or pelvis. Multiple renal cysts measuring up to 7.2 cm on t he left. Diverticulosis of the colon. Nonspecific small sclerotic lesions in the iliac bones. Robbi Samuel MD On 04/09/2019 17:12:22; [id number] 2019-04-09 PROCEDURE INFORMATION: [facility] 16:20:24-00:00 Exam: XR Chest, 1 View Exam date and time: 04/09/2019 4:34 PM Age: 64 years old Clinical indication: Other: Abd pain; Additional info: /abd oain TECHNIQUE: Imaging protocol: XR of the chest Views: 1 view. COMPARISON: No relevant prior studies available. FINDINGS: Lungs: Normal lung volumes. No consolidation. Pleural space: Unremarkable. No pleural effusion . No pneumothorax. Heart/Mediastinum: Heart size is within normal l imits. Vasculature is unremarkable. Bones/joints: There has been previous cervical A CDF. IMPRESSION: No acute cardiopulmonary findings. Omi Ross MD On 04/09/2019 16:53:17; VR-T [id number] 2019-04-09 Radiation Dose CTDIVOL = 0 (mGy): DLP = 525.6 (m Gy-cm) [facility] 16:20:24-00:00 PROCEDURE INFORMATION: Exam: CT Abdomen And Pelvis With Contrast Exam date and time: 04/09/2019 4:45 PM Age: 64 years old Clinical indication: Abdominal pain; Generalized ; Additional info: /abd oain TECHNIQUE: Imaging protocol: Computed tomography of the abd omen and pelvis with intravenous contrast. Total DLP: 525.6 mGy-cm Radiation optimization: All CT scans at this facility use at least one of these dose optimization techniques: automated exposure control; mA and/or kV adjustment per patient size (includes targeted e xams where dose is matched to clinical indication); or iterative reconstructio n. Contrast material: OMNIPAQUE 300; Contra st volume: 100 ml; Contrast route: IV; COMPARISON: CR PELVIS AP DX 10/13/2015 5:06 AM FINDINGS: Liver: Normal. No mass. Gallbladder and bile ducts: The patient is statu s post cholecystectomy. Pancreas: Normal. No ductal dilation. Spleen: Normal. No splenomegaly. Adrenals: Normal. No mass. Kidneys and ureters: Multiple simple bernardo al cysts measuring up to 7.2 cm on the left. Stomach and bowel: Diverticulosis of the colon i s noted, without surrounding inflammation. The small neena l demonstrates a normal course and caliber. A small duodenal diverticulum is noted on series 2 image 67. Appendix: No evidence of appendicitis. Intraperitoneal space: Unremarkable. No free air . No significant fluid collection. Vasculature: Atherosclerosis of the aorta, witho ut aneursymal dilatation. Lymph nodes: Unremarkable. No enlarged lymph nod es. Bladder: Unremarkable as visualized. Reproductive: Hysterectomy. Bones/joints: Nonspecific sclerotic lesions in t he iliac bones. No acute fracture. Soft tissues: Fat containing umbilical hernia. IMPRESSION: No acute abnormality in the abdomen or pelvis. Multiple renal cysts measuring up to 7.2 cm on t he left. Diverticulosis of the colon. Nonspecific small sclerotic lesions in the iliac bones. Robbi Samuel MD On 04/09/2019 17:12:22; [id number] 2019-04-09 [facility] 16:20:24-00:00 Exam: XR Chest, 1 View Exam date and time: 04/09/2019 4:34 PM Age: 64 years old Clinical indication: Other: Abd pain; Additional info: /abd oain TECHNIQUE: Imaging protocol: XR of the chest Views: 1 view. COMPARISON: No relevant prior studies available. FINDINGS: Lungs: Normal lung volumes. No consolidation. Pleural space: Unremarkable. No pleural effusion . No pneumothorax. Heart/Mediastinum: Heart size is within normal l imits. Vasculature is unremarkable. Bones/joints: There has been previous cervical A CDF. IMPRESSION: No acute cardiopulmonary findings. Omi Ross MD On 04/09/2019 16:53:17; VR-T [id number] 2019-04-09 Radiation Dose CTDIVOL = 0 (mGy): DLP = 525.6 (m Gy-cm) [facility] 16:20:24-00:00 PROCEDURE INFORMATION: Exam: CT Abdomen And Pelvis With Contrast Exam date and time: 04/09/2019 4:45 PM Age: 64 years old Clinical indication: Abdominal pain; Generalized ; Additional info: /abd oain TECHNIQUE: Imaging protocol: Computed tomography of the abd omen and pelvis with intravenous contrast. Total DLP: 525.6 mGy-cm Radiation optimization: All CT scans at this facility use at least one of these dose optimization techniques: automated exposure control; mA and/or kV adjustment per patient size (includes targeted e xams where dose is matched to clinical indication); or iterative reconstructio n. Contrast material: OMNIPAQUE 300; Contra st volume: 100 ml; Contrast route: IV; COMPARISON: CR PELVIS AP DX 10/13/2015 5:06 AM FINDINGS: Liver: Normal. No mass. Gallbladder and bile ducts: The patient is statu s post cholecystectomy. Pancreas: Normal. No ductal dilation. Spleen: Normal. No splenomegaly. Adrenals: Normal. No mass. Kidneys and ureters: Multiple simple bernardo al cysts measuring up to 7.2 cm on the left. Stomach and bowel: Diverticulosis of the colon i s noted, without surrounding inflammation. The small neena l demonstrates a normal course and caliber. A small duodenal diverticulum is noted on series 2 image 67. Appendix: No evidence of appendicitis. Intraperitoneal space: Unremarkable. No free air . No significant fluid collection. Vasculature: Atherosclerosis of the aorta, witho ut aneursymal dilatation. Lymph nodes: Unremarkable. No enlarged lymph nod es. Bladder: Unremarkable as visualized. Reproductive: Hysterectomy. Bones/joints: Nonspecific sclerotic lesions in t he iliac bones. No acute fracture. Soft tissues: Fat containing umbilical hernia. IMPRESSION: No acute abnormality in the abdomen or pelvis. Multiple renal cysts measuring up to 7.2 cm on t he left. Diverticulosis of the colon. Nonspecific small sclerotic lesions in the iliac bones. Robbi Samuel MD On 04/09/2019 17:12:22; [id number]___[id number] 2019-04-09 PROCEDURE INFORMATION: [facility] 16:20:24-00:00 Exam: XR Chest, 1 View Exam date and time: 04/09/2019 4:34 PM Age: 64 years old Clinical indication: Other: Abd pain; Additional info: /abd oain TECHNIQUE: Imaging protocol: XR of the chest Views: 1 view. COMPARISON: No relevant prior studies available. FINDINGS: Lungs: Normal lung volumes. No consolidation. Pleural space: Unremarkable. No pleural effusion . No pneumothorax. Heart/Mediastinum: Heart size is within normal l imits. Vasculature is unremarkable. Bones/joints: There has been previous cervical A CDF. IMPRESSION: No acute cardiopulmonary findings. Omi Ross MD On 04/09/2019 16:53:17; VR-T [id number] 2019-04-09 Radiation Dose CTDIVOL = 0 (mGy): DLP = 525.6 (m Gy-cm) [facility] 16:20:24-00:00 PROCEDURE INFORMATION: Exam: CT Abdomen And Pelvis With Contrast Exam date and time: 04/09/2019 4:45 PM Age: 64 years old Clinical indication: Abdominal pain; Generalized ; Additional info: /abd oain TECHNIQUE: Imaging protocol: Computed tomography of the abd omen and pelvis with intravenous contrast. Total DLP: 525.6 mGy-cm Radiation optimization: All CT scans at this facility use at least one of these dose optimization techniques: automated exposure control; mA and/or kV adjustment per patient size (includes targeted e xams where dose is matched to clinical indication); or iterative reconstructio n. Contrast material: OMNIPAQUE 300; Contra st volume: 100 ml; Contrast route: IV; COMPARISON: CR PELVIS AP DX 10/13/2015 5:06 AM FINDINGS: Liver: Normal. No mass. Gallbladder and bile ducts: The patient is statu s post cholecystectomy. Pancreas: Normal. No ductal dilation. Spleen: Normal. No splenomegaly. Adrenals: Normal. No mass. Kidneys and ureters: Multiple simple bernardo al cysts measuring up to 7.2 cm on the left. Stomach and bowel: Diverticulosis of the colon i s noted, without surrounding inflammation. The small neena l demonstrates a normal course and caliber. A small duodenal diverticulum is noted on series 2 image 67. Appendix: No evidence of appendicitis. Intraperitoneal space: Unremarkable. No free air . No significant fluid collection. Vasculature: Atherosclerosis of the aorta, witho ut aneursymal dilatation. Lymph nodes: Unremarkable. No enlarged lymph nod es. Bladder: Unremarkable as visualized. Reproductive: Hysterectomy. Bones/joints: Nonspecific sclerotic lesions in t he iliac bones. No acute fracture. Soft tissues: Fat containing umbilical hernia. IMPRESSION: No acute abnormality in the abdomen or pelvis. Multiple renal cysts measuring up to 7.2 cm on t he left. Diverticulosis of the colon. Nonspecific small sclerotic lesions in the iliac bones. Robbi Samuel MD On 04/09/2019 17:12:22; [id number]___[id number] 2019-04-09 PROCEDURE INFORMATION: [facility] 16:20:24-00:00 Exam: XR Chest, 1 View Exam date and time: 04/09/2019 4:34 PM Age: 64 years old Clinical indication: Other: Abd pain; Additional info: /abd oain TECHNIQUE: Imaging protocol: XR of the chest Views: 1 view. COMPARISON: No relevant prior studies available. FINDINGS: Lungs: Normal lung volumes. No consolidation. Pleural space: Unremarkable. No pleural effusion . No pneumothorax. Heart/Mediastinum: Heart size is within normal l imits. Vasculature is unremarkable. Bones/joints: There has been previous cervical A CDF. IMPRESSION: No acute cardiopulmonary findings. Omi Ross MD On 04/09/2019 16:53:17; VR-T [id number] 2019-04-09 Radiation Dose CTDIVOL = 0 (mGy): DLP = 525.6 (m Gy-cm) [facility] 16:20:24-00:00 PROCEDURE INFORMATION: Exam: CT Abdomen And Pelvis With Contrast Exam date and time: 04/09/2019 4:45 PM Age: 64 years old Clinical indication: Abdominal pain; Generalized ; Additional info: /abd oain TECHNIQUE: Imaging protocol: Computed tomography of the abd omen and pelvis with intravenous contrast. Total DLP: 525.6 mGy-cm Radiation optimization: All CT scans at this facility use at least one of these dose optimization techniques: automated exposure control; mA and/or kV adjustment per patient size (includes targeted e xams where dose is matched to clinical indication); or iterative reconstructio n. Contrast material: OMNIPAQUE 300; Contra st volume: 100 ml; Contrast route: IV; COMPARISON: CR PELVIS AP DX 10/13/2015 5:06 AM FINDINGS: Liver: Normal. No mass. Gallbladder and bile ducts: The patient is statu s post cholecystectomy. Pancreas: Normal. No ductal dilation. Spleen: Normal. No splenomegaly. Adrenals: Normal. No mass. Kidneys and ureters: Multiple simple bernardo al cysts measuring up to 7.2 cm on the left. Stomach and bowel: Diverticulosis of the colon i s noted, without surrounding inflammation. The small neena l demonstrates a normal course and caliber. A small duodenal diverticulum is noted on series 2 image 67. Appendix: No evidence of appendicitis. Intraperitoneal space: Unremarkable. No free air . No significant fluid collection. Vasculature: Atherosclerosis of the aorta, witho ut aneursymal dilatation. Lymph nodes: Unremarkable. No enlarged lymph nod es. Bladder: Unremarkable as visualized. Reproductive: Hysterectomy. Bones/joints: Nonspecific sclerotic lesions in t he iliac bones. No acute fracture. Soft tissues: Fat containing umbilical hernia. IMPRESSION: No acute abnormality in the abdomen or pelvis. Multiple renal cysts measuring up to 7.2 cm on t he left. Diverticulosis of the colon. Nonspecific small sclerotic lesions in the iliac bones. Robbi Samuel MD On 04/09/2019 17:12:22; VR-W3___[id number] 2019-04-09 PROCEDURE INFORMATION: [facility] 16:20:24-00:00 Exam: XR Chest, 1 View Exam date and time: 04/09/2019 4:34 PM Age: 64 years old Clinical indication: Other: Abd pain; Additional info: /abd oain TECHNIQUE: Imaging protocol: XR of the chest Views: 1 view. COMPARISON: No relevant prior studies available. FINDINGS: Lungs: Normal lung volumes. No consolidation. Pleural space: Unremarkable. No pleural effusion . No pneumothorax. Heart/Mediastinum: Heart size is within normal l imits. Vasculature is unremarkable. Bones/joints: There has been previous cervical A CDF. IMPRESSION: No acute cardiopulmonary findings. Omi Ross MD On 04/09/2019 16:53:17; VR-T [id number] 2019-04-09 Radiation Dose CTDIVOL = 0 (mGy): DLP = 525.6 (m Gy-cm) [facility] 16:20:24-00:00 PROCEDURE INFORMATION: Exam: CT Abdomen And Pelvis With Contrast Exam date and time: 04/09/2019 4:45 PM Age: 64 years old Clinical indication: Abdominal pain; Generalized ; Additional info: /abd oain TECHNIQUE: Imaging protocol: Computed tomography of the abd omen and pelvis with intravenous contrast. Total DLP: 525.6 mGy-cm Radiation optimization: All CT scans at this facility use at least one of these dose optimization techniques: automated exposure control; mA and/or kV adjustment per patient size (includes targeted e xams where dose is matched to clinical indication); or iterative reconstructio n. Contrast material: OMNIPAQUE 300; Contra st volume: 100 ml; Contrast route: IV; COMPARISON: CR PELVIS AP DX 10/13/2015 5:06 AM FINDINGS: Liver: Normal. No mass. Gallbladder and bile ducts: The patient is statu s post cholecystectomy. Pancreas: Normal. No ductal dilation. Spleen: Normal. No splenomegaly. Adrenals: Normal. No mass. Kidneys and ureters: Multiple simple bernardo al cysts measuring up to 7.2 cm on the left. Stomach and bowel: Diverticulosis of the colon i s noted, without surrounding inflammation. The small neena l demonstrates a normal course and caliber. A small duodenal diverticulum is noted on series 2 image 67. Appendix: No evidence of appendicitis. Intraperitoneal space: Unremarkable. No free air . No significant fluid collection. Vasculature: Atherosclerosis of the aorta, witho ut aneursymal dilatation. Lymph nodes: Unremarkable. No enlarged lymph nod es. Bladder: Unremarkable as visualized. Reproductive: Hysterectomy. Bones/joints: Nonspecific sclerotic lesions in t he iliac bones. No acute fracture. Soft tissues: Fat containing umbilical hernia. IMPRESSION: No acute abnormality in the abdomen or pelvis. Multiple renal cysts measuring up to 7.2 cm on t he left. Diverticulosis of the colon. Nonspecific small sclerotic lesions in the iliac bones. Robbi Samuel MD On 04/09/2019 17:12:22; VR-W3___[id number] 2019-04-09 PROCEDURE INFORMATION: [facility] 16:20:24-00:00 Exam: XR Chest, 1 View Exam date and time: 04/09/2019 4:34 PM Age: 64 years old Clinical indication: Other: Abd pain; Additional info: /abd oain TECHNIQUE: Imaging protocol: XR of the chest Views: 1 view. COMPARISON: No relevant prior studies available. FINDINGS: Lungs: Normal lung volumes. No consolidation. Pleural space: Unremarkable. No pleural effusion . No pneumothorax. Heart/Mediastinum: Heart size is within normal l imits. Vasculature is unremarkable. Bones/joints: There has been previous cervical A CDF. IMPRESSION: No acute cardiopulmonary findings. Omi Ross MD On 04/09/2019 16:53:17; VR-T [id number] 2019-02-10 Radiation Dose CTDIVOL = 0 (mGy): DLP = 150.29 ( mGy-cm) [facility] 13:56:00-00:00 PROCEDURE INFORMATION: Exam: CT Right Lower Extremity Without Contrast , Foot Exam date and time: 02/10/2019 2:12 PM Clinical history: 64 years old, female; Other h ammer toe(s) (acquired), right foot; Additional info: /m20.41 other hammer toe(s) (acquired), right foot TECHNIQUE: Imaging protocol: CT of the Right lower extremi ty without contrast was performed. Exam focused on the foot. Total DLP: 150.29 mGy-cm Radiation optimization: All CT scans at this [facility] use at least one of these dose optimization techniques: automated ex posure control; mA and/or kV adjustment per patient size (includes targeted e xams where dose is matched to clinical indication); or iterative reconstructio n. COMPARISON: No relevant prior studies available. Findings: No acute bony fracture, joint dislocat ion, or suspicious osseous lesion is seen. Mild hallux valgus deformity is seen with mild osteoarthrosis of the first MTP joint, characterized by mild svetlana int space narrowing and marginal osseous spurring. W ell-corticated subcentimeter ossific body along the medial base of the proximal phalanx of t he first toe is seen, of indeterminate significance. There is moderate-severe o steoarthrosis of the metatarsosesamoid articulations with severe svetlana int space loss, mild subchondral cystic change, and mild marginal osseous spurring. Mild hammertoe deformities o f the second through fifth toes are seen. Posterior and plantar calcaneal enthesophytes are seen. Os navicularis is noted. Mild edema along the dorsal superficial soft tis sues of the foot is noted, nonspecific. Arterial calcifications are seen. Impression: 1. Mild hammertoe deformities of the second thro ugh fifth toes. 2. Mild hallux valgus deformity. 3. Moderate-severe osteoarthrosis of the metatar sosesamoid articulations. Anibal Amaya MD On 02/10/2019 16:46:36; [id number] 2019-02-10 Radiation Dose CTDIVOL = 0 (mGy): DLP = 150.29 ( mGy-cm) [facility] [place] 13:56:00-00:00 PROCEDURE INFORMATION: Exam: CT Right Lower Extremity Without Contrast , Foot Exam date and time: 02/10/2019 2:12 PM Clinical history: 64 years old, female; Other h ammer toe(s) (acquired), right foot; Additional info: /m20.41 other hammer toe(s) (acquired), right foot TECHNIQUE: Imaging protocol: CT of the Right lower extremi ty without contrast was performed. Exam focused on the foot. Total DLP: 150.29 mGy-cm Radiation optimization: All CT scans at this [facility] use at least one of these dose optimization techniques: automated ex posure control; mA and/or kV adjustment per patient size (includes targeted e xams where dose is matched to clinical indication); or iterative reconstructio n. COMPARISON: No relevant prior studies available. Findings: No acute bony fracture, joint dislocat ion, or suspicious osseous lesion is seen. Mild hallux valgus deformity is seen with mild osteoarthrosis of the first MTP joint, characterized by mild svetlana int space narrowing and marginal osseous spurring. W ell-corticated subcentimeter ossific body along the medial base of the proximal phalanx of t he first toe is seen, of indeterminate significance. There is moderate-severe o steoarthrosis of the metatarsosesamoid articulations with severe svetlana int space loss, mild subchondral cystic change, and mild marginal osseous spurring. Mild hammertoe deformities o f the second through fifth toes are seen. Posterior and plantar calcaneal enthesophytes are seen. Os navicularis is noted. Mild edema along the dorsal superficial soft tis sues of the foot is noted, nonspecific. Arterial calcifications are seen. Impression: 1. Mild hammertoe deformities of the second thro ugh fifth toes. 2. Mild hallux valgus deformity. 3. Moderate-severe osteoarthrosis of the metatar sosesamoid articulations. Anibal Amaya MD On 02/10/2019 16:46:36; [id number] 2019-02-10 Radiation Dose CTDIVOL = 0 (mGy): DLP = 150.29 ( mGy-cm) [facility] [place] 13:56:00-00:00 PROCEDURE INFORMATION: Exam: CT Right Lower Extremity Without Contrast , Foot Exam date and time: 02/10/2019 2:12 PM Clinical history: 64 years old, female; Other h ammer toe(s) (acquired), right foot; Additional info: /m20.41 other hammer toe(s) (acquired), right foot TECHNIQUE: Imaging protocol: CT of the Right lower extremi ty without contrast was performed. Exam focused on the foot. Total DLP: 150.29 mGy-cm Radiation optimization: All CT scans at this [facility] use at least one of these dose optimization techniques: automated ex posure control; mA and/or kV adjustment per patient size (includes targeted e xams where dose is matched to clinical indication); or iterative reconstructio n. COMPARISON: No relevant prior studies available. Findings: No acute bony fracture, joint dislocat ion, or suspicious osseous lesion is seen. Mild hallux valgus deformity is seen with mild osteoarthrosis of the first MTP joint, characterized by mild svetlana int space narrowing and marginal osseous spurring. W ell-corticated subcentimeter ossific body along the medial base of the proximal phalanx of t he first toe is seen, of indeterminate significance. There is moderate-severe o steoarthrosis of the metatarsosesamoid articulations with severe svetlana int space loss, mild subchondral cystic change, and mild marginal osseous spurring. Mild hammertoe deformities o f the second through fifth toes are seen. Posterior and plantar calcaneal enthesophytes are seen. Os navicularis is noted. Mild edema along the dorsal superficial soft tis sues of the foot is noted, nonspecific. Arterial calcifications are seen. Impression: 1. Mild hammertoe deformities of the second thro ugh fifth toes. 2. Mild hallux valgus deformity. 3. Moderate-severe osteoarthrosis of the metatar sosesamoid articulations. Anibal Amaya MD On 02/10/2019 16:46:36; [id number] 2019-02-10 Radiation Dose CTDIVOL = 0 (mGy): DLP = 150.29 ( mGy-cm) [facility] 13:56:00-00:00 PROCEDURE INFORMATION: Exam: CT Right Lower Extremity Without Contrast , Foot Exam date and time: 02/10/2019 2:12 PM Clinical history: 64 years old, female; Other h ammer toe(s) (acquired), right foot; Additional info: /m20.41 other hammer toe(s) (acquired), right foot TECHNIQUE: Imaging protocol: CT of the Right lower extremi ty without contrast was performed. Exam focused on the foot. Total DLP: 150.29 mGy-cm Radiation optimization: All CT scans at this [facility] use at least one of these dose optimization techniques: automated ex posure control; mA and/or kV adjustment per patient size (includes targeted e xams where dose is matched to clinical indication); or iterative reconstructio n. COMPARISON: No relevant prior studies available. Findings: No acute bony fracture, joint dislocat ion, or suspicious osseous lesion is seen. Mild hallux valgus deformity is seen with mild osteoarthrosis of the first MTP joint, characterized by mild svetlana int space narrowing and marginal osseous spurring. W ell-corticated subcentimeter ossific body along the medial base of the proximal phalanx of t he first toe is seen, of indeterminate significance. There is moderate-severe o steoarthrosis of the metatarsosesamoid articulations with severe svetlana int space loss, mild subchondral cystic change, and mild marginal osseous spurring. Mild hammertoe deformities o f the second through fifth toes are seen. Posterior and plantar calcaneal enthesophytes are seen. Os navicularis is noted. Mild edema along the dorsal superficial soft tis sues of the foot is noted, nonspecific. Arterial calcifications are seen. Impression: 1. Mild hammertoe deformities of the second thro ugh fifth toes. 2. Mild hallux valgus deformity. 3. Moderate-severe osteoarthrosis of the metatar sosesamoid articulations. Anibal Amaya MD On 02/10/2019 16:46:36; [id number] 2019-02-10 Radiation Dose CTDIVOL = 0 (mGy): DLP = 150.29 ( mGy-cm) [facility] [place] 13:56:00-00:00 PROCEDURE INFORMATION: Exam: CT Right Lower Extremity Without Contrast , Foot Exam date and time: 02/10/2019 2:12 PM Clinical history: 64 years old, female; Other h ammer toe(s) (acquired), right foot; Additional info: /m20.41 other hammer toe(s) (acquired), right foot TECHNIQUE: Imaging protocol: CT of the Right lower extremi ty without contrast was performed. Exam focused on the foot. Total DLP: 150.29 mGy-cm Radiation optimization: All CT scans at this [facility] use at least one of these dose optimization techniques: automated ex posure control; mA and/or kV adjustment per patient size (includes targeted e xams where dose is matched to clinical indication); or iterative reconstructio n. COMPARISON: No relevant prior studies available. Findings: No acute bony fracture, joint dislocat ion, or suspicious osseous lesion is seen. Mild hallux valgus deformity is seen with mild osteoarthrosis of the first MTP joint, characterized by mild svetlana int space narrowing and marginal osseous spurring. W ell-corticated subcentimeter ossific body along the medial base of the proximal phalanx of t he first toe is seen, of indeterminate significance. There is moderate-severe o steoarthrosis of the metatarsosesamoid articulations with severe svetlana int space loss, mild subchondral cystic change, and mild marginal osseous spurring. Mild hammertoe deformities o f the second through fifth toes are seen. Posterior and plantar calcaneal enthesophytes are seen. Os navicularis is noted. Mild edema along the dorsal superficial soft tis sues of the foot is noted, nonspecific. Arterial calcifications are seen. Impression: 1. Mild hammertoe deformities of the second thro ugh fifth toes. 2. Mild hallux valgus deformity. 3. Moderate-severe osteoarthrosis of the metatar sosesamoid articulations. Anibal Amaya MD On 02/10/2019 16:46:36; [id number] 2019-02-10 Radiation Dose CTDIVOL = 0 (mGy): DLP = 150.29 ( mGy-cm) [facility] [place] 13:56:00-00:00 PROCEDURE INFORMATION: Exam: CT Right Lower Extremity Without Contrast , Foot Exam date and time: 02/10/2019 2:12 PM Clinical history: 64 years old, female; Other h ammer toe(s) (acquired), right foot; Additional info: /m20.41 other hammer toe(s) (acquired), right foot TECHNIQUE: Imaging protocol: CT of the Right lower extremi ty without contrast was performed. Exam focused on the foot. Total DLP: 150.29 mGy-cm Radiation optimization: All CT scans at this [facility] use at least one of these dose optimization techniques: automated ex posure control; mA and/or kV adjustment per patient size (includes targeted e xams where dose is matched to clinical indication); or iterative reconstructio n. COMPARISON: No relevant prior studies available. Findings: No acute bony fracture, joint dislocat ion, or suspicious osseous lesion is seen. Mild hallux valgus deformity is seen with mild osteoarthrosis of the first MTP joint, characterized by mild svetlana int space narrowing and marginal osseous spurring. W ell-corticated subcentimeter ossific body along the medial base of the proximal phalanx of t he first toe is seen, of indeterminate significance. There is moderate-severe o steoarthrosis of the metatarsosesamoid articulations with severe svetlana int space loss, mild subchondral cystic change, and mild marginal osseous spurring. Mild hammertoe deformities o f the second through fifth toes are seen. Posterior and plantar calcaneal enthesophytes are seen. Os navicularis is noted. Mild edema along the dorsal superficial soft tis sues of the foot is noted, nonspecific. Arterial calcifications are seen. Impression: 1. Mild hammertoe deformities of the second thro ugh fifth toes. 2. Mild hallux valgus deformity. 3. Moderate-severe osteoarthrosis of the metatar sosesamoid articulations. Anibal Amaya MD On 02/10/2019 16:46:36; [id number]-POPID1 [id number] 2019-02-10 Radiation Dose CTDIVOL = 0 (mGy): DLP = 150.29 ( mGy-cm) [facility] 13:56:00-00:00 PROCEDURE INFORMATION: Exam: CT Right Lower Extremity Without Contrast , Foot Exam date and time: 02/10/2019 2:12 PM Clinical history: 64 years old, female; Other h ammer toe(s) (acquired), right foot; Additional info: /m20.41 other hammer toe(s) (acquired), right foot TECHNIQUE: Imaging protocol: CT of the Right lower extremi ty without contrast was performed. Exam focused on the foot. Total DLP: 150.29 mGy-cm Radiation optimization: All CT scans at this [facility] use at least one of these dose optimization techniques: automated ex posure control; mA and/or kV adjustment per patient size (includes targeted e xams where dose is matched to clinical indication); or iterative reconstructio n. COMPARISON: No relevant prior studies available. Findings: No acute bony fracture, joint dislocat ion, or suspicious osseous lesion is seen. Mild hallux valgus deformity is seen with mild osteoarthrosis of the first MTP joint, characterized by mild svetlana int space narrowing and marginal osseous spurring. W ell-corticated subcentimeter ossific body along the medial base of the proximal phalanx of t he first toe is seen, of indeterminate significance. There is moderate-severe o steoarthrosis of the metatarsosesamoid articulations with severe svetlana int space loss, mild subchondral cystic change, and mild marginal osseous spurring. Mild hammertoe deformities o f the second through fifth toes are seen. Posterior and plantar calcaneal enthesophytes are seen. Os navicularis is noted. Mild edema along the dorsal superficial soft tis sues of the foot is noted, nonspecific. Arterial calcifications are seen. Impression: 1. Mild hammertoe deformities of the second thro ugh fifth toes. 2. Mild hallux valgus deformity. 3. Moderate-severe osteoarthrosis of the metatar sosesamoid articulations. Anibal Amaya MD On 02/10/2019 16:46:36; VR-POPID1 [id number] 2019-02-10 Radiation Dose CTDIVOL = 0 (mGy): DLP = 150.29 ( mGy-cm) [facility]56:[facility]-00:00 PROCEDURE INFORMATION: Exam: CT Right Lower Extremity Without Contrast , Foot Exam date and time: 02/10/2019 2:12 PM Clinical history: 64 years old, female; Other h ammer toe(s) (acquired), right foot; Additional info: /m20.41 other hammer toe(s) (acquired), right foot TECHNIQUE: Imaging protocol: CT of the Right lower extrem ity without contrast was performed. Exam focused on the foot. Total DLP: 150.29 mGy-cm Radiation optimization: All CT scans [facility] use at least one of these dose optimization techniques: automated ex posure control; mA and/or kV adjustment per patient size (includes targeted e xams where dose is matched to clinical indication); or iterative reconstructio n. COMPARISON: No relevant prior studies available. Findings: No acute bony fracture, joint dislocat ion, or suspicious osseous lesion is seen. Mild hallux valgus deformity is seen with mild osteoarthrosis of the first MTP joint, characterized by mild svetlana int space narrowing and marginal osseous spurring. W ell-corticated subcentimeter ossific body along the medial base of the proximal phalanx of t he first toe is seen, of indeterminate significance. There is moderate-severe o steoarthrosis of the metatarsosesamoid articulations with severe svetlana int space loss, mild subchondral cystic change, and mild marginal osseous spurring. Mild hammertoe deformities o f the second through fifth toes are seen. Posterior and plantar calcaneal enthesophytes are seen. Os navicularis is noted. Mild edema along the dorsal superficial soft tis sues of the foot is noted, nonspecific. Arterial calcifications are seen. Impression: 1. Mild hammertoe deformities of the second thro ugh fifth toes. 2. Mild hallux valgus deformity. 3. Moderate-severe osteoarthrosis of the metatar sosesamoid articulations. Anibal Amaya MD On 02/10/2019 16:46:36; [id number] 2019-02-10 Radiation Dose CTDIVOL = 0 (mGy): DLP = 150.29 ( mGy-cm) [facility] 13:56:00-00:00 PROCEDURE INFORMATION: Exam: CT Right Lower Extremity Without Contrast , Foot Exam date and time: 02/10/2019 2:12 PM Clinical history: 64 years old, female; Other h ammer toe(s) (acquired), right foot; Additional info: /m20.41 other hammer toe(s) (acquired), right foot TECHNIQUE: Imaging protocol: CT of the Right lower extremi ty without contrast was performed. Exam focused on the foot. Total DLP: 150.29 mGy-cm Radiation optimization: All CT scans at this [facility] use at least one of these dose optimization techniques: automated ex posure control; mA and/or kV adjustment per patient size (includes targeted e xams where dose is matched to clinical indication); or iterative reconstructio n. COMPARISON: No relevant prior studies available. Findings: No acute bony fracture, joint dislocat ion, or suspicious osseous lesion is seen. Mild hallux valgus deformity is seen with mild osteoarthrosis of the first MTP joint, characterized by mild svetlana int space narrowing and marginal osseous spurring. W ell-corticated subcentimeter ossific body along the medial base of the proximal phalanx of t he first toe is seen, of indeterminate significance. There is moderate-severe o steoarthrosis of the metatarsosesamoid articulations with severe svetlana int space loss, mild subchondral cystic change, and mild marginal osseous spurring. Mild hammertoe deformities o f the second through fifth toes are seen. Posterior and plantar calcaneal enthesophytes are seen. Os navicularis is noted. Mild edema along the dorsal superficial soft tis sues of the foot is noted, nonspecific. Arterial calcifications are seen. Impression: 1. Mild hammertoe deformities of the second thro ugh fifth toes. 2. Mild hallux valgus deformity. 3. Moderate-severe osteoarthrosis of the metatar sosesamoid articulations. Anibal Amaya MD On 02/10/2019 16:46:36; [id number] 2019-02-10 Radiation Dose CTDIVOL = 0 (mGy): DLP = 150.29 ( mGy-cm) [facility] [place] 13:56:00-00:00 PROCEDURE INFORMATION: Exam: CT Right Lower Extremity Without Contrast , Foot Exam date and time: 02/10/2019 2:12 PM Clinical history: 64 years old, female; Other h ammer toe(s) (acquired), right foot; Additional info: /m20.41 other hammer toe(s) (acquired), right foot TECHNIQUE: Imaging protocol: CT of the Right lower extremi ty without contrast was performed. Exam focused on the foot. Total DLP: 150.29 mGy-cm Radiation optimization: All CT scans at this [facility] use at least one of these dose optimization techniques: automated ex posure control; mA and/or kV adjustment per patient size (includes targeted e xams where dose is matched to clinical indication); or iterative reconstructio n. COMPARISON: No relevant prior studies available. Findings: No acute bony fracture, joint dislocat ion, or suspicious osseous lesion is seen. Mild hallux valgus deformity is seen with mild osteoarthrosis of the first MTP joint, characterized by mild svetlana int space narrowing and marginal osseous spurring. W ell-corticated subcentimeter ossific body along the medial base of the proximal phalanx of t he first toe is seen, of indeterminate significance. There is moderate-severe o steoarthrosis of the metatarsosesamoid articulations with severe svetlana int space loss, mild subchondral cystic change, and mild marginal osseous spurring. Mild hammertoe deformities o f the second through fifth toes are seen. Posterior and plantar calcaneal enthesophytes are seen. Os navicularis is noted. Mild edema along the dorsal superficial soft tis sues of the foot is noted, nonspecific. Arterial calcifications are seen. Impression: 1. Mild hammertoe deformities of the second thro ugh fifth toes. 2. Mild hallux valgus deformity. 3. Moderate-severe osteoarthrosis of the metatar sosesamoid articulations. Anibal Amaya MD On 02/10/2019 16:46:36; [id number] 2019-02-10 Radiation Dose CTDIVOL = 0 (mGy): DLP = 150.29 ( mGy-cm) [facility] [place] 13:56:00-00:00 PROCEDURE INFORMATION: Exam: CT Right Lower Extremity Without Contrast , Foot Exam date and time: 02/10/2019 2:12 PM Clinical history: 64 years old, female; Other h ammer toe(s) (acquired), right foot; Additional info: /m20.41 other hammer toe(s) (acquired), right foot TECHNIQUE: Imaging protocol: CT of the Right lower extremi ty without contrast was performed. Exam focused on the foot. Total DLP: 150.29 mGy-cm Radiation optimization: All CT scans at this [facility] use at least one of these dose optimization techniques: automated ex posure control; mA and/or kV adjustment per patient size (includes targeted e xams where dose is matched to clinical indication); or iterative reconstructio n. COMPARISON: No relevant prior studies available. Findings: No acute bony fracture, joint dislocat ion, or suspicious osseous lesion is seen. Mild hallux valgus deformity is seen with mild osteoarthrosis of the first MTP joint, characterized by mild svetlana int space narrowing and marginal osseous spurring. W ell-corticated subcentimeter ossific body along the medial base of the proximal phalanx of t he first toe is seen, of indeterminate significance. There is moderate-severe o steoarthrosis of the metatarsosesamoid articulations with severe svetlana int space loss, mild subchondral cystic change, and mild marginal osseous spurring. Mild hammertoe deformities o f the second through fifth toes are seen. Posterior and plantar calcaneal enthesophytes are seen. Os navicularis is noted. Mild edema along the dorsal superficial soft tis sues of the foot is noted, nonspecific. Arterial calcifications are seen. Impression: 1. Mild hammertoe deformities of the second thro ugh fifth toes. 2. Mild hallux valgus deformity. 3. Moderate-severe osteoarthrosis of the metatar sosesamoid articulations. Anibal Amaya MD On 02/10/2019 16:46:36; [id number] 2019-02-10 Radiation Dose CTDIVOL = 0 (mGy): DLP = 150.29 ( mGy-cm) [facility] [place] 13:56:00-00:00 PROCEDURE INFORMATION: Exam: CT Right Lower Extremity Without Contrast , Foot Exam date and time: 02/10/2019 2:12 PM Clinical history: 64 years old, female; Other h ammer toe(s) (acquired), right foot; Additional info: /m20.41 other hammer toe(s) (acquired), right foot TECHNIQUE: Imaging protocol: CT of the Right lower extremi ty without contrast was performed. Exam focused on the foot. Total DLP: 150.29 mGy-cm Radiation optimization: All CT scans at this [facility] use at least one of these dose optimization techniques: automated ex posure control; mA and/or kV adjustment per patient size (includes targeted e xams where dose is matched to clinical indication); or iterative reconstructio n. COMPARISON: No relevant prior studies available. Findings: No acute bony fracture, joint dislocat ion, or suspicious osseous lesion is seen. Mild hallux valgus deformity is seen with mild osteoarthrosis of the first MTP joint, characterized by mild svetlana int space narrowing and marginal osseous spurring. W ell-corticated subcentimeter ossific body along the medial base of the proximal phalanx of t he first toe is seen, of indeterminate significance. There is moderate-severe o steoarthrosis of the metatarsosesamoid articulations with severe svetlana int space loss, mild subchondral cystic change, and mild marginal osseous spurring. Mild hammertoe deformities o f the second through fifth toes are seen. Posterior and plantar calcaneal enthesophytes are seen. Os navicularis is noted. Mild edema along the dorsal superficial soft tis sues of the foot is noted, nonspecific. Arterial calcifications are seen. Impression: 1. Mild hammertoe deformities of the second thro ugh fifth toes. 2. Mild hallux valgus deformity. 3. Moderate-severe osteoarthrosis of the metatar sosesamoid articulations. Anibal Amaya MD On 02/10/2019 16:46:36; [id number] 2019-02-10 Radiation Dose CTDIVOL = 0 (mGy): DLP = 150.29 ( mGy-cm) [facility] [place] 13:56:00-00:00 PROCEDURE INFORMATION: Exam: CT Right Lower Extremity Without Contrast , Foot Exam date and time: 02/10/2019 2:12 PM Clinical history: 64 years old, female; Other h ammer toe(s) (acquired), right foot; Additional info: /m20.41 other hammer toe(s) (acquired), right foot TECHNIQUE: Imaging protocol: CT of the Right lower extremi ty without contrast was performed. Exam focused on the foot. Total DLP: 150.29 mGy-cm Radiation optimization: All CT scans at this [facility] use at least one of these dose optimization techniques: automated ex posure control; mA and/or kV adjustment per patient size (includes targeted e xams where dose is matched to clinical indication); or iterative reconstructio n. COMPARISON: No relevant prior studies available. Findings: No acute bony fracture, joint dislocat ion, or suspicious osseous lesion is seen. Mild hallux valgus deformity is seen with mild osteoarthrosis of the first MTP joint, characterized by mild svetlana int space narrowing and marginal osseous spurring. W ell-corticated subcentimeter ossific body along the medial base of the proximal phalanx of t he first toe is seen, of indeterminate significance. There is moderate-severe o steoarthrosis of the metatarsosesamoid articulations with severe svetlana int space loss, mild subchondral cystic change, and mild marginal osseous spurring. Mild hammertoe deformities o f the second through fifth toes are seen. Posterior and plantar calcaneal enthesophytes are seen. Os navicularis is noted. Mild edema along the dorsal superficial soft tis sues of the foot is noted, nonspecific. Arterial calcifications are seen. Impression: 1. Mild hammertoe deformities of the second thro ugh fifth toes. 2. Mild hallux valgus deformity. 3. Moderate-severe osteoarthrosis of the metatar sosesamoid articulations. Anibal Amaya MD On 02/10/2019 16:46:36; [id number] 2019-02-10 Radiation Dose CTDIVOL = 0 (mGy): DLP = 150.29 ( mGy-cm) [facility] [place] 13:56:00-00:00 PROCEDURE INFORMATION: Exam: CT Right Lower Extremity Without Contrast , Foot Exam date and time: 02/10/2019 2:12 PM Clinical history: 64 years old, female; Other h ammer toe(s) (acquired), right foot; Additional info: /m20.41 other hammer toe(s) (acquired), right foot TECHNIQUE: Imaging protocol: CT of the Right lower extremi ty without contrast was performed. Exam focused on the foot. Total DLP: 150.29 mGy-cm Radiation optimization: All CT scans at this [facility] use at least one of these dose optimization techniques: automated ex posure control; mA and/or kV adjustment per patient size (includes targeted e xams where dose is matched to clinical indication); or iterative reconstructio n. COMPARISON: No relevant prior studies available. Findings: No acute bony fracture, joint dislocat ion, or suspicious osseous lesion is seen. Mild hallux valgus deformity is seen with mild osteoarthrosis of the first MTP joint, characterized by mild svetlana int space narrowing and marginal osseous spurring. W ell-corticated subcentimeter ossific body along the medial base of the proximal phalanx of t he first toe is seen, of indeterminate significance. There is moderate-severe o steoarthrosis of the metatarsosesamoid articulations with severe svetlana int space loss, mild subchondral cystic change, and mild marginal osseous spurring. Mild hammertoe deformities o f the second through fifth toes are seen. Posterior and plantar calcaneal enthesophytes are seen. Os navicularis is noted. Mild edema along the dorsal superficial soft tis sues of the foot is noted, nonspecific. Arterial calcifications are seen. Impression: 1. Mild hammertoe deformities of the second thro ugh fifth toes. 2. Mild hallux valgus deformity. 3. Moderate-severe osteoarthrosis of the metatar sosesamoid articulations. Anibal Amaya MD On 02/10/2019 16:46:36; [id number] 2019-02-10 Radiation Dose CTDIVOL = 0 (mGy): DLP = 150.29 ( mGy-cm) [facility] 13:56:00-00:00 PROCEDURE INFORMATION: Exam: CT Right Lower Extremity Without Contrast , Foot Exam date and time: 02/10/2019 2:12 PM Clinical history: 64 years old, female; Other h ammer toe(s) (acquired), right foot; Additional info: /m20.41 other hammer toe(s) (acquired), right foot TECHNIQUE: Imaging protocol: CT of the Right lower extremi ty without contrast was performed. Exam focused on the foot. Total DLP: 150.29 mGy-cm Radiation optimization: All CT scans at this [facility] use at least one of these dose optimization techniques: automated ex posure control; mA and/or kV adjustment per patient size (includes targeted e xams where dose is matched to clinical indication); or iterative reconstructio n. COMPARISON: No relevant prior studies available. Findings: No acute bony fracture, joint dislocat ion, or suspicious osseous lesion is seen. Mild hallux valgus deformity is seen with mild osteoarthrosis of the first MTP joint, characterized by mild svetlana int space narrowing and marginal osseous spurring. W ell-corticated subcentimeter ossific body along the medial base of the proximal phalanx of t he first toe is seen, of indeterminate significance. There is moderate-severe o steoarthrosis of the metatarsosesamoid articulations with severe svetlana int space loss, mild subchondral cystic change, and mild marginal osseous spurring. Mild hammertoe deformities o f the second through fifth toes are seen. Posterior and plantar calcaneal enthesophytes are seen. Os navicularis is noted. Mild edema along the dorsal superficial soft tis sues of the foot is noted, nonspecific. Arterial calcifications are seen. Impression: 1. Mild hammertoe deformities of the second thro ugh fifth toes. 2. Mild hallux valgus deformity. 3. Moderate-severe osteoarthrosis of the metatar sosesamoid articulations. Anibal Amaya MD On 02/10/2019 16:46:36; [id number] 2019-02-10 Radiation Dose CTDIVOL = 0 (mGy): DLP = 150.29 ( mGy-cm) [facility] 13:56:00-00:00 PROCEDURE INFORMATION: Exam: CT Right Lower Extremity Without Contrast , Foot Exam date and time: 02/10/2019 2:12 PM Clinical history: 64 years old, female; Other h ammer toe(s) (acquired), right foot; Additional info: /m20.41 other hammer toe(s) (acquired), right foot TECHNIQUE: Imaging protocol: CT of the Right lower extremi ty without contrast was performed. Exam focused on the foot. Total DLP: 150.29 mGy-cm Radiation optimization: All CT scans at this [facility] use at least one of these dose optimization techniques: automated ex posure control; mA and/or kV adjustment per patient size (includes targeted e xams where dose is matched to clinical indication); or iterative reconstructio n. COMPARISON: No relevant prior studies available. Findings: No acute bony fracture, joint dislocat ion, or suspicious osseous lesion is seen. Mild hallux valgus deformity is seen with mild osteoarthrosis of the first MTP joint, characterized by mild svetlana int space narrowing and marginal osseous spurring. W ell-corticated subcentimeter ossific body along the medial base of the proximal phalanx of t he first toe is seen, of indeterminate significance. There is moderate-severe o steoarthrosis of the metatarsosesamoid articulations with severe svetlana int space loss, mild subchondral cystic change, and mild marginal osseous spurring. Mild hammertoe deformities o f the second through fifth toes are seen. Posterior and plantar calcaneal enthesophytes are seen. Os navicularis is noted. Mild edema along the dorsal superficial soft tis sues of the foot is noted, nonspecific. Arterial calcifications are seen. Impression: 1. Mild hammertoe deformities of the second thro ugh fifth toes. 2. Mild hallux valgus deformity. 3. Moderate-severe osteoarthrosis of the metatar sosesamoid articulations. Anibal Amaya MD On 02/10/2019 16:46:36; [id number] [id number] 2019-02-10 Radiation Dose CTDIVOL = 0 (mGy): DLP = 150.29 ( mGy-cm) [facility] 13:56:00-00:00 PROCEDURE INFORMATION: Exam: CT Right Lower Extremity Without Contrast , Foot Exam date and time: 02/10/2019 2:12 PM Clinical history: 64 years old, female; Other h ammer toe(s) (acquired), right foot; Additional info: /m20.41 other hammer toe(s) (acquired), right foot TECHNIQUE: Imaging protocol: CT of the Right lower extremi ty without contrast was performed. Exam focused on the foot. Total DLP: 150.29 mGy-cm Radiation optimization: All CT scans at this [facility] use at least one of these dose optimization techniques: automated ex posure control; mA and/or kV adjustment per patient size (includes targeted e xams where dose is matched to clinical indication); or iterative reconstructio n. COMPARISON: No relevant prior studies available. Findings: No acute bony fracture, joint dislocat ion, or suspicious osseous lesion is seen. Mild hallux valgus deformity is seen with mild osteoarthrosis of the first MTP joint, characterized by mild svetlana int space narrowing and marginal osseous spurring. W ell-corticated subcentimeter ossific body along the medial base of the proximal phalanx of t he first toe is seen, of indeterminate significance. There is moderate-severe o steoarthrosis of the metatarsosesamoid articulations with severe svetlana int space loss, mild subchondral cystic change, and mild marginal osseous spurring. Mild hammertoe deformities o f the second through fifth toes are seen. Posterior and plantar calcaneal enthesophytes are seen. Os navicularis is noted. Mild edema along the dorsal superficial soft tis sues of the foot is noted, nonspecific. Arterial calcifications are seen. Impression: 1. Mild hammertoe deformities of the second thro ugh fifth toes. 2. Mild hallux valgus deformity. 3. Moderate-severe osteoarthrosis of the metatar sosesamoid articulations. Anibal Amaya MD On 02/10/2019 16:46:36; [id number]-POPID1 [id number] 2019-02-10 Radiation Dose CTDIVOL = 0 (mGy): DLP = 150.29 ( mGy-cm) [facility] [place] 13:56:00-00:00 PROCEDURE INFORMATION: Exam: CT Right Lower Extremity Without Contrast , Foot Exam date and time: 02/10/2019 2:12 PM Clinical history: 64 years old, female; Other h ammer toe(s) (acquired), right foot; Additional info: /m20.41 other hammer toe(s) (acquired), right foot TECHNIQUE: Imaging protocol: CT of the Right lower extremi ty without contrast was performed. Exam focused on the foot. Total DLP: 150.29 mGy-cm Radiation optimization: All CT scans at this [facility] use at least one of these dose optimization techniques: automated ex posure control; mA and/or kV adjustment per patient size (includes targeted e xams where dose is matched to clinical indication); or iterative reconstructio n. COMPARISON: No relevant prior studies available. Findings: No acute bony fracture, joint dislocat ion, or suspicious osseous lesion is seen. Mild hallux valgus deformity is seen with mild osteoarthrosis of the first MTP joint, characterized by mild svetlana int space narrowing and marginal osseous spurring. W ell-corticated subcentimeter ossific body along the medial base of the proximal phalanx of t he first toe is seen, of indeterminate significance. There is moderate-severe o steoarthrosis of the metatarsosesamoid articulations with severe svetlana int space loss, mild subchondral cystic change, and mild marginal osseous spurring. Mild hammertoe deformities o f the second through fifth toes are seen. Posterior and plantar calcaneal enthesophytes are seen. Os navicularis is noted. Mild edema along the dorsal superficial soft tis sues of the foot is noted, nonspecific. Arterial calcifications are seen. Impression: 1. Mild hammertoe deformities of the second thro ugh fifth toes. 2. Mild hallux valgus deformity. 3. Moderate-severe osteoarthrosis of the metatar sosesamoid articulations. Anibal Amaya MD On 02/10/2019 16:46:36; VR-POPID1 [id number] 2018-08-27 [facility] [place]43:00-00:00 : 1955; Age: 63 years y/o Female MR: [id number] Study: Thyroid US 08/27/2018 8:43 CDT Ordering Physician: Griselda Tolbert MD The patient presented for re commended biopsy of the left thyroid nodule according to prior thyroid ultrasound of 07/07/2018. Real-time evaluation of the previously described nodule medially in the midpo rtion of the left thyroid lo be appears to correspond to a focus of significant shadowing most likely artifact from hardware related to the prior ACDF, cervical osteophytes, and/or thyroid cartilage rath er than a true thyroid nodul e. Follow-up CT neck with contrast is recommended for confirmation. Continued surveillance of the right thyroid nodule is recommended as discussed on the previous diagnostic report. IMPRESSION: Left thyroid FNA canceled wi th for follow-up recommendations as above described. Significant findings were co mmunicated to Griselda Tolbert MD on 08/27/2018 12:30 CDT. SL: [id number] 2018-08-27 Patient Name: HARLEEN [place] 08:43:00-00:00 : 1955; Age: 63 years y/o Female MR: [id number] Study: Thyroid US 08/27/2018 8:43 CDT Ordering Physician: Griselda Tolbert MD The patient presented for re commended biopsy of the left thyroid nodule according to prior thyroid ultrasound of 07/07/2018. Real-time evaluation of the previously described nodule medially in the midpo rtion of the left thyroid lo be appears to correspond to a focus of significant shadowing most likely artifact from hardware related to the prior ACDF, cervical osteophytes, and/or thyroid cartilage rath er than a true thyroid nodul e. Follow-up CT neck with contrast is recommended for confirmation. Continued surveillance of the right thyroid nodule is recommended as discussed on the previous diagnostic report. IMPRESSION: Left thyroid FNA canceled wi th for follow-up recommendations as above described. Significant findings were co mmunicated to Griselda Tolbert MD on 08/27/2018 12:30 CDT. SL: [id number] 2018-08-27 Patient Name: HARLEEN [place]row 08:43:00-00:00 : 1955; Age: 63 years y/o Female MR: [id number] Study: Thyroid US 08/27/2018 8:43 CDT Ordering Physician: Griselda Tolbert MD The patient presented for re commended biopsy of the left thyroid nodule according to prior thyroid ultrasound of 07/07/2018. Real-time evaluation of the previously described nodule medially in the midpo rtion of the left thyroid lo be appears to correspond to a focus of significant shadowing most likely artifact from hardware related to the prior ACDF, cervical osteophytes, and/or thyroid cartilage rath er than a true thyroid nodul e. Follow-up CT neck with contrast is recommended for confirmation. Continued surveillance of the right thyroid nodule is recommended as discussed on the previous diagnostic report. IMPRESSION: Left thyroid FNA canceled wi th for follow-up recommendations as above described. Significant findings were co mmunicated to Griselda Tolbert MD on 08/27/2018 12:30 CDT. SL: [id number] 2018-08-27 Patient Name: HARLEEN Morrow 08:43:00-00:00 : 1955; Age: 63 years y/o Female MR: [id number] Study: Thyroid US 08/27/2018 8:43 CDT Ordering Physician: Griselda Tolbert MD The patient presented for re commended biopsy of the left thyroid nodule according to prior thyroid ultrasound of 07/07/2018. Real-time evaluation of the previously described nodule medially in the midpo rtion of the left thyroid lo be appears to correspond to a focus of significant shadowing most likely artifact from hardware related to the prior ACDF, cervical osteophytes, and/or thyroid cartilage rath er than a true thyroid nodul e. Follow-up CT neck with contrast is recommended for confirmation. Continued surveillance of the right thyroid nodule is recommended as discussed on the previous diagnostic report. IMPRESSION: Left thyroid FNA canceled wi th for follow-up recommendations as above described. Significant findings were co mmunicated to Griselda Tolbert MD on 08/27/2018 12:30 CDT. SL: [id number] 2018-08-27 Patient Name: HARLEEN Murcialand 08:43:00-00:00 : 1955; Age: 63 years y/o Female MR: [id number] Study: Thyroid US 08/27/2018 8:43 CDT Ordering Physician: Griselda Tolbert MD The patient presented for re commended biopsy of the left thyroid nodule according to prior thyroid ultrasound of 07/07/2018. Real-time evaluation of the previously described nodule medially in the midpo rtion of the left thyroid lo be appears to correspond to a focus of significant shadowing most likely artifact from hardware related to the prior ACDF, cervical osteophytes, and/or thyroid cartilage rath er than a true thyroid nodul e. Follow-up CT neck with contrast is recommended for confirmation. Continued surveillance of the right thyroid nodule is recommended as discussed on the previous diagnostic report. IMPRESSION: Left thyroid FNA canceled wi th for follow-up recommendations as above described. Significant findings were co mmunicated to Griselda Tolbert MD on 08/27/2018 12:30 CDT. SL: [id number] 2018-08-27 Patient Name: HARLEEN Morrow 08:43:00-00:00 : 1955; Age: 63 years y/o Female MR: [id number] Study: Thyroid US 08/27/2018 8:43 CDT Ordering Physician: Griselda Tolbert MD The patient presented for re commended biopsy of the left thyroid nodule according to prior thyroid ultrasound of 07/07/2018. Real-time evaluation of the previously described nodule medially in the midpo rtion of the left thyroid lo be appears to correspond to a focus of significant shadowing most likely artifact from hardware related to the prior ACDF, cervical osteophytes, and/or thyroid cartilage rath er than a true thyroid nodul e. Follow-up CT neck with contrast is recommended for confirmation. Continued surveillance of the right thyroid nodule is recommended as discussed on the previous diagnostic report. IMPRESSION: Left thyroid FNA canceled wi th for follow-up recommendations as above described. Significant findings were co mmunicated to Griselda Tolbert MD on 08/27/2018 12:30 CDT. SL: [id number] 2018-08-27 Patient Name: HARLEEN Murcialand 08:43:00-00:00 : 1955; Age: 63 years y/o Female MR: [id number] Study: Thyroid US 08/27/2018 8:43 CDT Ordering Physician: Griselda Tolbert MD The patient presented for re commended biopsy of the left thyroid nodule according to prior thyroid ultrasound of 07/07/2018. Real-time evaluation of the previously described nodule medially in the midpo rtion of the left thyroid lo be appears to correspond to a focus of significant shadowing most likely artifact from hardware related to the prior ACDF, cervical osteophytes, and/or thyroid cartilage rath er than a true thyroid nodul e. Follow-up CT neck with contrast is recommended for confirmation. Continued surveillance of the right thyroid nodule is recommended as discussed on the previous diagnostic report. IMPRESSION: Left thyroid FNA canceled wi th for follow-up recommendations as above described. Significant findings were co mmunicated to Griselda Tolbert MD on 08/27/2018 12:30 CDT. SL: [id number] 2018-08-27 Patient Name: HARELEN Murcialand 08:43:00-00:00 : 1955; Age: 63 years y/o Female MR: [id number] Study: Thyroid US 08/27/2018 8:43 CDT Ordering Physician: Griselda Tolbert MD The patient presented for re commended biopsy of the left thyroid nodule according to prior thyroid ultrasound of 07/07/2018. Real-time evaluation of the previously described nodule medially in the midpo rtion of the left thyroid lo be appears to correspond to a focus of significant shadowing most likely artifact from hardware related to the prior ACDF, cervical osteophytes, and/or thyroid cartilage rath er than a true thyroid nodul e. Follow-up CT neck with contrast is recommended for confirmation. Continued surveillance of the right thyroid nodule is recommended as discussed on the previous diagnostic report. IMPRESSION: Left thyroid FNA canceled wi th for follow-up recommendations as above described. Significant findings were co mmunicated to Griselda Tolbert MD on 08/27/2018 12:30 CDT. SL: [id number] 2018-08-27 Patient Name: HARLEEN Murcialand 08:43:00-00:00 : 1955; Age: 63 years y/o Female MR: [id number] Study: Thyroid US 08/27/2018 8:43 CDT Ordering Physician: Griselda Tolbert MD The patient presented for re commended biopsy of the left thyroid nodule according to prior thyroid ultrasound of 07/07/2018. Real-time evaluation of the previously described nodule medially in the midpo rtion of the left thyroid lo be appears to correspond to a focus of significant shadowing most likely artifact from hardware related to the prior ACDF, cervical osteophytes, and/or thyroid cartilage rath er than a true thyroid nodul e. Follow-up CT neck with contrast is recommended for confirmation. Continued surveillance of the right thyroid nodule is recommended as discussed on the previous diagnostic report. IMPRESSION: Left thyroid FNA canceled wi th for follow-up recommendations as above described. Significant findings were co mmunicated to Griselda Tolbert MD on 08/27/2018 12:30 CDT. SL: [id number] 2018-08-27 Patient Name: HARLEEN Murcialand 08:43:00-00:00 : 1955; Age: 63 years y/o Female MR: [id number] Study: Thyroid US 08/27/2018 8:43 CDT Ordering Physician: Griselda Tolbert MD The patient presented for re commended biopsy of the left thyroid nodule according to prior thyroid ultrasound of 07/07/2018. Real-time evaluation of the previously described nodule medially in the midpo rtion of the left thyroid lo be appears to correspond to a focus of significant shadowing most likely artifact from hardware related to the prior ACDF, cervical osteophytes, and/or thyroid cartilage rath er than a true thyroid nodul e. Follow-up CT neck with contrast is recommended for confirmation. Continued surveillance of the right thyroid nodule is recommended as discussed on the previous diagnostic report. IMPRESSION: Left thyroid FNA canceled wi th for follow-up recommendations as above described. Significant findings were co mmunicated to Griselda Tolbert MD on 08/27/2018 12:30 CDT. SL: [id number] 2018-08-27 Patient Name: HARLEEN Murcialand 08:43:00-00:00 : 1955; Age: 63 years y/o Female MR: [id number] Study: Thyroid US 08/27/2018 8:43 CDT Ordering Physician: Griselda Tolbert MD The patient presented for re commended biopsy of the left thyroid nodule according to prior thyroid ultrasound of 07/07/2018. Real-time evaluation of the previously described nodule medially in the midpo rtion of the left thyroid lo be appears to correspond to a focus of significant shadowing most likely artifact from hardware related to the prior ACDF, cervical osteophytes, and/or thyroid cartilage rath er than a true thyroid nodul e. Follow-up CT neck with contrast is recommended for confirmation. Continued surveillance of the right thyroid nodule is recommended as discussed on the previous diagnostic report. IMPRESSION: Left thyroid FNA canceled wi th for follow-up recommendations as above described. Significant findings were co mmunicated to Griselda Tolbert MD on 08/27/2018 12:30 CDT. SL: [id number] 2018-08-27 Patient Name: HARLEEN Murcialand 08:43:00-00:00 : 1955; Age: 63 years y/o Female MR: [id number] Study: Thyroid US 08/27/2018 8:43 CDT Ordering Physician: Griselda Tolbert MD The patient presented for re commended biopsy of the left thyroid nodule according to prior thyroid ultrasound of 07/07/2018. Real-time evaluation of the previously described nodule medially in the midpo rtion of the left thyroid lo be appears to correspond to a focus of significant shadowing most likely artifact from hardware related to the prior ACDF, cervical osteophytes, and/or thyroid cartilage rath er than a true thyroid nodul e. Follow-up CT neck with contrast is recommended for confirmation. Continued surveillance of the right thyroid nodule is recommended as discussed on the previous diagnostic report. IMPRESSION: Left thyroid FNA canceled wi th for follow-up recommendations as above described. Significant findings were co mmunicated to Griselda Tolbert MD on 08/27/2018 12:30 CDT. SL: [id number] 2018-08-27 Patient Name: HARLEEN Murcialand 08:43:00-00:00 : 1955; Age: 63 years y/o Female MR: [id number] Study: Thyroid US 08/27/2018 8:43 CDT Ordering Physician: Griselda Tolbert MD The patient presented for re commended biopsy of the left thyroid nodule according to prior thyroid ultrasound of 07/07/2018. Real-time evaluation of the previously described nodule medially in the midpo rtion of the left thyroid lo be appears to correspond to a focus of significant shadowing most likely artifact from hardware related to the prior ACDF, cervical osteophytes, and/or thyroid cartilage rath er than a true thyroid nodul e. Follow-up CT neck with contrast is recommended for confirmation. Continued surveillance of the right thyroid nodule is recommended as discussed on the previous diagnostic report. IMPRESSION: Left thyroid FNA canceled wi th for follow-up recommendations as above described. Significant findings were co mmunicated to Griselda Tolbert MD on 08/27/2018 12:30 CDT. SL: [id number] 2018-08-27 Patient Name: HARLEEN Morrow 08:43:00-00:00 : 1955; Age: 63 years y/o Female MR: [id number] Study: Thyroid US 08/27/2018 8:43 CDT Ordering Physician: Griselda Tolbert MD The patient presented for re commended biopsy of the left thyroid nodule according to prior thyroid ultrasound of 07/07/2018. Real-time evaluation of the previously described nodule medially in the midpo rtion of the left thyroid lo be appears to correspond to a focus of significant shadowing most likely artifact from hardware related to the prior ACDF, cervical osteophytes, and/or thyroid cartilage rath er than a true thyroid nodul e. Follow-up CT neck with contrast is recommended for confirmation. Continued surveillance of the right thyroid nodule is recommended as discussed on the previous diagnostic report. IMPRESSION: Left thyroid FNA canceled wi th for follow-up recommendations as above described. Significant findings were co mmunicated to Griselda Tolbert MD on 08/27/2018 12:30 CDT. SL: [id number] 2018-08-27 Patient Name: HARLEEN Morrow 08:43:00-00:00 : 1955; Age: 63 years y/o Female MR: [id number] Study: Thyroid US 08/27/2018 8:43 CDT Ordering Physician: Griselda Tolbert MD The patient presented for re commended biopsy of the left thyroid nodule according to prior thyroid ultrasound of 07/07/2018. Real-time evaluation of the previously described nodule medially in the midpo rtion of the left thyroid lo be appears to correspond to a focus of significant shadowing most likely artifact from hardware related to the prior ACDF, cervical osteophytes, and/or thyroid cartilage rath er than a true thyroid nodul e. Follow-up CT neck with contrast is recommended for confirmation. Continued surveillance of the right thyroid nodule is recommended as discussed on the previous diagnostic report. IMPRESSION: Left thyroid FNA canceled wi th for follow-up recommendations as above described. Significant findings were co mmunicated to Griselda Tolbert MD on 08/27/2018 12:30 CDT. SL: [id number] 2018-08-27 Patient Name: HARLEEN Morrow 08:43:00-00:00 : 1955; Age: 63 years y/o Female MR: [id number] Study: Thyroid US 08/27/2018 8:43 CDT Ordering Physician: Griselda Tolbert MD The patient presented for re commended biopsy of the left thyroid nodule according to prior thyroid ultrasound of 07/07/2018. Real-time evaluation of the previously described nodule medially in the midpo rtion of the left thyroid lo be appears to correspond to a focus of significant shadowing most likely artifact from hardware related to the prior ACDF, cervical osteophytes, and/or thyroid cartilage rath er than a true thyroid nodul e. Follow-up CT neck with contrast is recommended for confirmation. Continued surveillance of the right thyroid nodule is recommended as discussed on the previous diagnostic report. IMPRESSION: Left thyroid FNA canceled wi th for follow-up recommendations as above described. Significant findings were co mmunicated to Griselda Tolbert MD on 08/27/2018 12:30 CDT. SL: [id number] 2018-08-27 Patient Name: HARLEEN Morrow 08:43:00-00:00 : 1955; Age: 63 years y/o Female MR: [id number] Study: Thyroid US 08/27/2018 8:43 CDT Ordering Physician: Griselda Tolbert MD The patient presented for re commended biopsy of the left thyroid nodule according to prior thyroid ultrasound of 07/07/2018. Real-time evaluation of the previously described nodule medially in the midpo rtion of the left thyroid lo be appears to correspond to a focus of significant shadowing most likely artifact from hardware related to the prior ACDF, cervical osteophytes, and/or thyroid cartilage rath er than a true thyroid nodul e. Follow-up CT neck with contrast is recommended for confirmation. Continued surveillance of the right thyroid nodule is recommended as discussed on the previous diagnostic report. IMPRESSION: Left thyroid FNA canceled wi th for follow-up recommendations as above described. Significant findings were co mmunicated to Griselda Tolbert MD on 08/27/2018 12:30 CDT. SL: [id number] 2018-08-27 Patient Name: HARLEEN ALICEA MODESTO Morrow 08:43:00-00:00 : 1955; Age: 63 years y/o Female MR: [id number] Study: Thyroid US 08/27/2018 8:43 CDT Ordering Physician: Griselda Tolbert MD The patient presented for re commended biopsy of the left thyroid nodule according to prior thyroid ultrasound of 07/07/2018. Real-time evaluation of the previously described nodule medially in the midpo rtion of the left thyroid lo be appears to correspond to a focus of significant shadowing most likely artifact from hardware related to the prior ACDF, cervical osteophytes, and/or thyroid cartilage rath er than a true thyroid nodul e. Follow-up CT neck with contrast is recommended for confirmation. Continued surveillance of the right thyroid nodule is recommended as discussed on the previous diagnostic report. IMPRESSION: Left thyroid FNA canceled wi th for follow-up recommendations as above described. Significant findings were co mmunicated to Griselda Tolbert MD on 08/27/2018 12:30 CDT. SL: [id number] 2018-08-26 MODESTO Morrow 12:46:00-00:00 ULTRASOUND GUIDED BIOPSY RIG HT BREAST WITH MARKING DEVICE INSERTED AND POST MAMMOGRAPHIC IMAGIN08/26/2018 CLINICAL: R92.8 Other Abnorm al And Inconclusive Findings On Diagnostic Imaging Of Breast/Rt Breast Mass. PATIENT CONSENT: I discussed the risks, benefits and alternatives for the procedure with the patient. Patient acknowledged understanding and informed written consent was obtained. A time out was perform ed to confirm patient identification and the loc ation of the lesion. Correlation is made to exams dated: 08/03/2018 ultrasound, 08/03/2018 mammogram, and 07/07/2018 mammogram - [facility] Rodney Morrow. An ultrasound guided biopsy using real-time ultrasound was performed for the 0.7 cm x 0.6 cm x 0.4 cm mass located in the right breast at 9 o'clock middle depth 4 cm from the nipple. This was d escribed on the previous ult rasound report. The skin was prepped in the usual manner. Local anesthetic was administered to the access site. A skin suresh was made in the breast. The abnormality was approa ched from the lateral aspect . A 14 gauge biopsy needle was placed adjacent to the abnormality under ultrasound guidance. Once the needle was documented to be in the correct location, four specimens were obtained using an Achieve a utomated firing device. A ribbon clip was inserted into the biopsy cavity. A skin closure strip was applied to the access site. Post procedure mammographic imaging demonstrat es the clip at the targeted area. The specimens were sent to the laboratory for pathological analysis. IMPRESSION: ULTRASOUND GUIDED BIOPSY BENIGN RECOMMENDATION:Ultrasound gu ided biopsy of the 0.7 cm x 0.6 cm x 0.4 cm mass in the right breast at 9 o'clock middle depth 4 cm from the nipple was successful with no apparent post procedure co mplications. Pathology indic ates benign usual ductal hyperplasia and adenosis. Pathology results are concordant with imaging findings. A follow-up mammogram with p ossible ultrasound of the biopsied breast in 6 months is recommended to demonstrate stability.(02/25/2019) Professional services are pr ovided by the [facility]. Lisa Baker M.D. en,cm/:09/01/2018 09:24:03 Electronics Recycler(s): Cole Hartman letter sent: Post Bx Results 2018-08-26 MODESTO Morrow 12:46:00-00:00 ULTRASOUND GUIDED BIOPSY RIG HT BREAST WITH MARKING DEVICE INSERTED AND POST MAMMOGRAPHIC IMAGIN08/26/2018 CLINICAL: R92.8 Other Abnorm al And Inconclusive Findings On Diagnostic Imaging Of Breast/Rt Breast Mass. PATIENT CONSENT: I discussed the risks, benefits and alternatives for the procedure with the patient. Patient acknowledged understanding and informed written consent was obtained. A time out was perform ed to confirm patient identification and the loc ation of the lesion. Correlation is made to exams dated: 08/03/2018 ultrasound, 08/03/2018 mammogram, and 07/07/2018 mammogram - [facility]. An ultrasound guided biopsy using real-time ultrasound was performed for the 0.7 cm x 0.6 cm x 0.4 cm mass located in the right breast at 9 o'clock middle depth 4 cm from the nipple. This was d escribed on the previous ult rasound report. The skin was prepped in the usual manner. Local anesthetic was administered to the access site. A skin suresh was made in the breast. The abnormality was approa ched from the lateral aspect . A 14 gauge biopsy needle was placed adjacent to the abnormality under ultrasound guidance. Once the needle was documented to be in the correct location, four specimens were obtained using an Achieve a utomated firing device. A ribbon clip was inserted into the biopsy cavity. A skin closure strip was applied to the access site. Post procedure mammographic imaging demonstrat es the clip at the targeted area. The specimens were sent to the laboratory for pathological analysis. IMPRESSION: ULTRASOUND GUIDED BIOPSY BENIGN RECOMMENDATION:Ultrasound gu ided biopsy of the 0.7 cm x 0.6 cm x 0.4 cm mass in the right breast at 9 o'clock middle depth 4 cm from the nipple was successful with no apparent post procedure co mplications. Pathology indic ates benign usual ductal hyperplasia and adenosis. Pathology results are concordant with imaging findings. A follow-up mammogram with p ossible ultrasound of the biopsied breast in 6 months is recommended to demonstrate stability.(02/25/2019) Professional services are pr ovided by the [facility]. Lisa Baker M.D. en,cm/:09/01/2018 09:24:03 Electronics Recycler(s): Cole Hartman Rodneyadriana Morrow letter sent: Post Bx Results 2018-08-26 MODESTO Morrow 12:46:00-00:00 ULTRASOUND GUIDED BIOPSY RIG HT BREAST WITH MARKING DEVICE INSERTED AND POST MAMMOGRAPHIC IMAGIN08/26/2018 CLINICAL: R92.8 Other Abnorm al And Inconclusive Findings On Diagnostic Imaging Of Breast/Rt Breast Mass. PATIENT CONSENT: I discussed the risks, benefits and alternatives for the procedure with the patient. Patient acknowledged understanding and informed written consent was obtained. A time out was perform ed to confirm patient identification and the loc ation of the lesion. Correlation is made to exams dated: 08/03/2018 ultrasound, 08/03/2018 mammogram, and 07/07/2018 mammogram - [facility] Rodney Murcialand. An ultrasound guided biopsy using real-time ultrasound was performed for the 0.7 cm x 0.6 cm x 0.4 cm mass located in the right breast at 9 o'clock middle depth 4 cm from the nipple. This was d escribed on the previous ult rasound report. The skin was prepped in the usual manner. Local anesthetic was administered to the access site. A skin suresh was made in the breast. The abnormality was approa ched from the lateral aspect . A 14 gauge biopsy needle was placed adjacent to the abnormality under ultrasound guidance. Once the needle was documented to be in the correct location, four specimens were obtained using an Achieve a utomated firing device. A ribbon clip was inserted into the biopsy cavity. A skin closure strip was applied to the access site. Post procedure mammographic imaging demonstrat es the clip at the targeted area. The specimens were sent to the laboratory for pathological analysis. IMPRESSION: ULTRASOUND GUIDED BIOPSY BENIGN RECOMMENDATION:Ultrasound gu ided biopsy of the 0.7 cm x 0.6 cm x 0.4 cm mass in the right breast at 9 o'clock middle depth 4 cm from the nipple was successful with no apparent post procedure co mplications. Pathology indic ates benign usual ductal hyperplasia and adenosis. Pathology results are concordant with imaging findings. A follow-up mammogram with p ossible ultrasound of the biopsied breast in 6 months is recommended to demonstrate stability.(02/25/2019) Professional services are pr ovided by the [facility]. Lisa Baker M.D. en,cm/:09/01/2018 09:24:03 Electronics Recycler(s): Cole Hartman letter sent: Post Bx Results 2018-08-26 MODESTO Morrow 12:46:00-00:00 ULTRASOUND GUIDED BIOPSY RIG HT BREAST WITH MARKING DEVICE INSERTED AND POST MAMMOGRAPHIC IMAGIN08/26/2018 CLINICAL: R92.8 Other Abnorm al And Inconclusive Findings On Diagnostic Imaging Of Breast/Rt Breast Mass. PATIENT CONSENT: I discussed the risks, benefits and alternatives for the procedure with the patient. Patient acknowledged understanding and informed written consent was obtained. A time out was perform ed to confirm patient identification and the loc ation of the lesion. Correlation is made to exams dated: 08/03/2018 ultrasound, 08/03/2018 mammogram, [facility] An ultrasound guided biopsy using real-time ultrasound was performed for the 0.7 cm x 0.6 cm x 0.4 cm mass located in the right breast at 9 o'clock middle depth 4 cm from the nipple. This was d escribed on the previous t rasound report. The skin was prepped in the usual manner. Local anesthetic was administered to the access site. A skin suresh was made in the breast. The abnormality was approa ched from the lateral aspect . A 14 gauge biopsy needle was placed adjacent to the abnormality under ultrasound guidance. Once the needle was documented to be in the correct location, four specimens were obtained using an Achieve a utomated firing device. A ribbon clip was inserted into the biopsy cavity. A skin closure strip was applied to the access site. Post procedure mammographic imaging demonstrat es the clip at the targeted area. The specimens were sent to the laboratory for pathological analysis. IMPRESSION: ULTRASOUND GUIDED BIOPSY BENIGN RECOMMENDATION:Ultrasound gu ided biopsy of the 0.7 cm x 0.6 cm x 0.4 cm mass in the right breast at 9 o'clock middle depth 4 cm from the nipple was successful with no apparent post procedure co mplications. Pathology indic ates benign usual ductal hyperplasia and adenosis. Pathology results are concordant with imaging findings. A follow-up mammogram with p ossible ultrasound of the biopsied breast in 6 months is recommended to demonstrate stability.(02/25/2019) Professional services are pr ovided by the [facility]. Lisa lange,cm/:09/01/2018 09:24:03 Electronics Recycler(s): Cole Hartman [place] letter sent: Post Bx Results 2018-08-26 SOHEILA Morrow 12:46:00-00:00 ULTRASOUND GUIDED BIOPSY RIG HT BREAST WITH MARKING DEVICE INSERTED AND POST MAMMOGRAPHIC IMAGIN08/26/2018 CLINICAL: R92.8 Other Abnorm al And Inconclusive Findings On Diagnostic Imaging Of Breast/Rt Breast Mass. PATIENT CONSENT: I discussed the risks, benefits and alternatives for the procedure with the patient. Patient acknowledged understanding and informed written consent was obtained. A time out was perform ed to confirm patient identification and the loc ation of the lesion. Correlation is made to exams dated: 08/03/2018 ultrasound, 08/03/2018 mammogram, and 07/07/2018 mammogram - [facility]. An ultrasound guided biopsy using real-time ultrasound was performed for the 0.7 cm x 0.6 cm x 0.4 cm mass located in the right breast at 9 o'clock middle depth 4 cm from the nipple. This was d escribed on the previous ult rasound report. The skin was prepped in the usual manner. Local anesthetic was administered to the access site. A skin suresh was made in the breast. The abnormality was approa ched from the lateral aspect . A 14 gauge biopsy needle was placed adjacent to the abnormality under ultrasound guidance. Once the needle was documented to be in the correct location, four specimens were obtained using an Achieve a utomated firing device. A ribbon clip was inserted into the biopsy cavity. A skin closure strip was applied to the access site. Post procedure mammographic imaging demonstrat es the clip at the targeted area. The specimens were sent to the laboratory for pathological analysis. IMPRESSION: ULTRASOUND GUIDED BIOPSY BENIGN RECOMMENDATION:Ultrasound gu ided biopsy of the 0.7 cm x 0.6 cm x 0.4 cm mass in the right breast at 9 o'clock middle depth 4 cm from the nipple was successful with no apparent post procedure co mplications. Pathology indic ates benign usual ductal hyperplasia and adenosis. Pathology results are concordant with imaging findings. A follow-up mammogram with p ossible ultrasound of the biopsied breast in 6 months is recommended to demonstrate stability.(02/25/2019) Professional services are pr ovided by the [facility]. Lisa lange,cm/:09/01/2018 09:24:03 Electronics Recycler(s): Cole Hartman letter sent: Post Bx Results 2018-08-26 SOHEILA Morrow 12:46:00-00:00 ULTRASOUND GUIDED BIOPSY RIG HT BREAST WITH MARKING DEVICE INSERTED AND POST MAMMOGRAPHIC IMAGIN08/26/2018 CLINICAL: R92.8 Other Abnorm al And Inconclusive Findings On Diagnostic Imaging Of Breast/Rt Breast Mass. PATIENT CONSENT: I discussed the risks, benefits and alternatives for the procedure with the patient. Patient acknowledged understanding and informed written consent was obtained. A time out was perform ed to confirm patient identification and the loc ation of the lesion. Correlation is made to exams dated: 08/03/2018 ultrasound, 08/03/2018 mammogram, [facility] An ultrasound guided biopsy using real-time ultrasound was performed for the 0.7 cm x 0.6 cm x 0.4 cm mass located in the right breast at 9 o'clock middle depth 4 cm from the nipple. This was d escribed on the previous t rasound report. The skin was prepped in the usual manner. Local anesthetic was administered to the access site. A skin suresh was made in the breast. The abnormality was approa ched from the lateral aspect . A 14 gauge biopsy needle was placed adjacent to the abnormality under ultrasound guidance. Once the needle was documented to be in the correct location, four specimens were obtained using an Achieve a utomated firing device. A ribbon clip was inserted into the biopsy cavity. A skin closure strip was applied to the access site. Post procedure mammographic imaging demonstrat es the clip at the targeted area. The specimens were sent to the laboratory for pathological analysis. IMPRESSION: ULTRASOUND GUIDED BIOPSY BENIGN RECOMMENDATION:Ultrasound gu ided biopsy of the 0.7 cm x 0.6 cm x 0.4 cm mass in the right breast at 9 o'clock middle depth 4 cm from the nipple was successful with no apparent post procedure co mplications. Pathology indic ates benign usual ductal hyperplasia and adenosis. Pathology results are concordant with imaging findings. A follow-up mammogram with p ossible ultrasound of the biopsied breast in 6 months is recommended to demonstrate stability.(02/25/2019) Professional services are pr ovided by the [facility]. Lisa MelgarD. en,cm/:09/01/2018 09:24:03 Electronics Recycler(s): Cole Hartman [place] letter sent: Post Bx Results 2018-08-26 SOHEILA Cristhian 12:46:00-00:00 ULTRASOUND GUIDED BIOPSY RIG HT BREAST WITH MARKING DEVICE INSERTED AND POST MAMMOGRAPHIC IMAGIN08/26/2018 CLINICAL: R92.8 Other Abnorm al And Inconclusive Findings On Diagnostic Imaging Of Breast/Rt Breast Mass. PATIENT CONSENT: I discussed the risks, benefits and alternatives for the procedure with the patient. Patient acknowledged understanding and informed written consent was obtained. A time out was perform ed to confirm patient identification and the loc ation of the lesion. Correlation is made to exams dated: 08/03/2018 ultrasound, 08/03/2018 mammogram, and 07/07/2018 mammogram - [facility]. An ultrasound guided biopsy using real-time ultrasound was performed for the 0.7 cm x 0.6 cm x 0.4 cm mass located in the right breast at 9 o'clock middle depth 4 cm from the nipple. This was d escribed on the previous t rasound report. The skin was prepped in the usual manner. Local anesthetic was administered to the access site. A skin suresh was made in the breast. The abnormality was approa ched from the lateral aspect . A 14 gauge biopsy needle was placed adjacent to the abnormality under ultrasound guidance. Once the needle was documented to be in the correct location, four specimens were obtained using an Achieve a utomated firing device. A ribbon clip was inserted into the biopsy cavity. A skin closure strip was applied to the access site. Post procedure mammographic imaging demonstrat es the clip at the targeted area. The specimens were sent to the laboratory for pathological analysis. IMPRESSION: ULTRASOUND GUIDED BIOPSY BENIGN RECOMMENDATION:Ultrasound gu ided biopsy of the 0.7 cm x 0.6 cm x 0.4 cm mass in the right breast at 9 o'clock middle depth 4 cm from the nipple was successful with no apparent post procedure co mplications. Pathology indic ates benign usual ductal hyperplasia and adenosis. Pathology results are concordant with imaging findings. A follow-up mammogram with p ossible ultrasound of the biopsied breast in 6 months is recommended to demonstrate stability.(02/25/2019) Professional services are pr ovided by the [facility]. Lisa Baker M.D. en,cm/:09/01/2018 09:24:03 Electronics Recycler(s): Cole Hartman Rodneyadriana Murcialand letter sent: Post Bx Results 2018-08-26 SOHEILA Morrow 12:46:00-00:00 ULTRASOUND GUIDED BIOPSY RIG HT BREAST WITH MARKING DEVICE INSERTED AND POST MAMMOGRAPHIC IMAGIN08/26/2018 CLINICAL: R92.8 Other Abnorm al And Inconclusive Findings On Diagnostic Imaging Of Breast/Rt Breast Mass. PATIENT CONSENT: I discussed the risks, benefits and alternatives for the procedure with the patient. Patient acknowledged understanding and informed written consent was obtained. A time out was perform ed to confirm patient identification and the loc ation of the lesion. Correlation is made to exams dated: 08/03/2018 ultrasound, 08/03/2018 mammogram, and [facility] [place] An ultrasound guided biopsy using real-time ultrasound was performed for the 0.7 cm x 0.6 cm x 0.4 cm mass located in the right breast at 9 o'clock middle depth 4 cm from the nipple. This was d escribed on the previous ult rasound report. The skin was prepped in the usual manner. Local anesthetic was administered to the access site. A skin suresh was made in the breast. The abnormality was approa ched from the lateral aspect . A 14 gauge biopsy needle was placed adjacent to the abnormality under ultrasound guidance. Once the needle was documented to be in the correct location, four specimens were obtained using an Achieve a utomated firing device. A ribbon clip was inserted into the biopsy cavity. A skin closure strip was applied to the access site. Post procedure mammographic imaging demonstrat es the clip at the targeted area. The specimens were sent to the laboratory for pathological analysis. IMPRESSION: ULTRASOUND GUIDED BIOPSY BENIGN RECOMMENDATION:Ultrasound gu ided biopsy of the 0.7 cm x 0.6 cm x 0.4 cm mass in the right breast at 9 o'clock middle depth 4 cm from the nipple was successful with no apparent post procedure co mplications. Pathology indic ates benign usual ductal hyperplasia and adenosis. Pathology results are concordant with imaging findings. A follow-up mammogram with p ossible ultrasound of the biopsied breast in 6 months is recommended to demonstrate stability.(02/25/2019) Professional services are pr ovided by the [facility]. Lisa lange,cm/:09/01/2018 09:24:03 Electronics Recycler(s): Cole Hartman letter sent: Post Bx Results 2018-08-26 SOHEILA Morrow 12:46:00-00:00 ULTRASOUND GUIDED BIOPSY RIG HT BREAST WITH MARKING DEVICE INSERTED AND POST MAMMOGRAPHIC IMAGIN08/26/2018 CLINICAL: R92.8 Other Abnorm al And Inconclusive Findings On Diagnostic Imaging Of Breast/Rt Breast Mass. PATIENT CONSENT: I discussed the risks, benefits and alternatives for the procedure with the patient. Patient acknowledged understanding and informed written consent was obtained. A time out was perform ed to confirm patient identification and the loc ation of the lesion. Correlation is made to exams dated: 08/03/2018 ultrasound, 08/03/2018 mammogram, and 07/07/2018 mammogram - [facility]. An ultrasound guided biopsy using real-time ultrasound was performed for the 0.7 cm x 0.6 cm x 0.4 cm mass located in the right breast at 9 o'clock middle depth 4 cm from the nipple. This was d escribed on the previous t rasound report. The skin was prepped in the usual manner. Local anesthetic was administered to the access site. A skin suresh was made in the breast. The abnormality was approa ched from the lateral aspect . A 14 gauge biopsy needle was placed adjacent to the abnormality under ultrasound guidance. Once the needle was documented to be in the correct location, four specimens were obtained using an Achieve a utomated firing device. A ribbon clip was inserted into the biopsy cavity. A skin closure strip was applied to the access site. Post procedure mammographic imaging demonstrat es the clip at the targeted area. The specimens were sent to the laboratory for pathological analysis. IMPRESSION: ULTRASOUND GUIDED BIOPSY BENIGN RECOMMENDATION:Ultrasound gu ided biopsy of the 0.7 cm x 0.6 cm x 0.4 cm mass in the right breast at 9 o'clock middle depth 4 cm from the nipple was successful with no apparent post procedure co mplications. Pathology indic ates benign usual ductal hyperplasia and adenosis. Pathology results are concordant with imaging findings. A follow-up mammogram with p ossible ultrasound of the biopsied breast in 6 months is recommended to demonstrate stability.(02/25/2019) Professional services are pr ovided by the [facility]. Lisa Baker M.D. en,cm/:09/01/2018 09:24:03 Electronics Recycler(s): Cole Hartman [place] letter sent: Post Bx Results 2018-08-26 OPID [place] 12:46:00-00:00 ULTRASOUND GUIDED BIOPSY RIG HT BREAST WITH MARKING DEVICE INSERTED AND POST MAMMOGRAPHIC IMAGIN08/26/2018 CLINICAL: R92.8 Other Abnorm al And Inconclusive Findings On Diagnostic Imaging Of Breast/Rt Breast Mass. PATIENT CONSENT: I discussed the risks, benefits and alternatives for the procedure with the patient. Patient acknowledged understanding and informed written consent was obtained. A time out was perform ed to confirm patient identification and the loc ation of the lesion. Correlation is made to exams dated: 08/03/2018 ultrasound, 08/03/2018 mammogram, and 07/07/2018 mammogram - [facility]. An ultrasound guided biopsy using real-time ultrasound was performed for the 0.7 cm x 0.6 cm x 0.4 cm mass located in the right breast at 9 o'clock middle depth 4 cm from the nipple. This was d escribed on the previous ult rasound report. The skin was prepped in the usual manner. Local anesthetic was administered to the access site. A skin suresh was made in the breast. The abnormality was approa ched from the lateral aspect . A 14 gauge biopsy needle was placed adjacent to the abnormality under ultrasound guidance. Once the needle was documented to be in the correct location, four specimens were obtained using an Achieve a utomated firing device. A ribbon clip was inserted into the biopsy cavity. A skin closure strip was applied to the access site. Post procedure mammographic imaging demonstrat es the clip at the targeted area. The specimens were sent to the laboratory for pathological analysis. IMPRESSION: ULTRASOUND GUIDED BIOPSY BENIGN RECOMMENDATION:Ultrasound gu ided biopsy of the 0.7 cm x 0.6 cm x 0.4 cm mass in the right breast at 9 o'clock middle depth 4 cm from the nipple was successful with no apparent post procedure co mplications. Pathology indic ates benign usual ductal hyperplasia and adenosis. Pathology results are concordant with imaging findings. A follow-up mammogram with p ossible ultrasound of the biopsied breast in 6 months is recommended to demonstrate stability.(02/25/2019) Professional services are pr ovided by [facility]. Lisa Baker M.D. en,cm/:09/01/2018 09:24:03 Electronics Recycler(s): Cole Hartman letter sent: Post Bx Results 2018-08-26 OPID Cristhian 12:46:00-00:00 ULTRASOUND GUIDED BIOPSY RIG HT BREAST WITH MARKING DEVICE INSERTED AND POST MAMMOGRAPHIC IMAGIN08/26/2018 CLINICAL: R92.8 Other Abnorm al And Inconclusive Findings On Diagnostic Imaging Of Breast/Rt Breast Mass. PATIENT CONSENT: I discussed the risks, benefits and alternatives for the procedure with the patient. Patient acknowledged understanding and informed written consent was obtained. A time out was perform ed to confirm patient identification and the loc ation of the lesion. Correlation is made to exams dated: 08/03/2018 ultrasound, 08/03/2018 mammogram, and 07/07/2018 mammogram - [facility]. An ultrasound guided biopsy using real-time ultrasound was performed for the 0.7 cm x 0.6 cm x 0.4 cm mass located in the right breast at 9 o'clock middle depth 4 cm from the nipple. This was d escribed on the previous ult rasound report. The skin was prepped in the usual manner. Local anesthetic was administered to the access site. A skin suresh was made in the breast. The abnormality was approa ched from the lateral aspect . A 14 gauge biopsy needle was placed adjacent to the abnormality under ultrasound guidance. Once the needle was documented to be in the correct location, four specimens wer e obtained using an Achieve automated firing device. A ribbon clip was inserted into the biopsy cavity. A skin closure strip was applied to the access site. Post procedure mammographic imaging demonstra alyssa the clip at the targeted area. The specimens were sent to the laboratory for pathological analysis. IMPRESSION: ULTRASOUND GUIDED BIOPSY BENIGN RECOMMENDATION:Ultrasound gu ided biopsy of the 0.7 cm x 0.6 cm x 0.4 cm mass in the right breast at 9 o'clock middle depth 4 cm from the nipple was successful with no apparent post procedure co mplications. Pathology indic ates benign usual ductal hyperplasia and adenosis. Pathology results are concordant with imaging findings. A follow-up mammogram with p ossible ultrasound of the biopsied breast in 6 months is recommended to demonstrate stability.(02/25/2019) Professional services are pr ovided by the [facility]. Lisa Baker M.D. en,cm/:09/01/2018 09:24:03 Electronics Recycler(s): Cole Hartman letter sent: Post Bx Results 2018-08-26 MH SOHEILA Morrow 12:46:00-00:00 ULTRASOUND GUIDED BIOPSY RIG HT BREAST WITH MARKING DEVICE INSERTED AND POST MAMMOGRAPHIC IMAGIN08/26/2018 CLINICAL: R92.8 Other Abnorm al And Inconclusive Findings On Diagnostic Imaging Of Breast/Rt Breast Mass. PATIENT CONSENT: I discussed the risks, benefits and alternatives for the procedure with the patient. Patient acknowledged understanding and informed written consent was obtained. A time out was perform ed to confirm patient identification and the loc ation of the lesion. Correlation is made to exams dated: 08/03/2018 ultrasound, 08/03/2018 mammogram, and 07/07/2018 mammogram - [facility] Rodney Morrow. An ultrasound guided biopsy using real-time ultrasound was performed for the 0.7 cm x 0.6 cm x 0.4 cm mass located in the right breast at 9 o'clock middle depth 4 cm from the nipple. This was d escribed on the previous t rasound report. The skin was prepped in the usual manner. Local anesthetic was administered to the access site. A skin suresh was made in the breast. The abnormality was approa ched from the lateral aspect . A 14 gauge biopsy needle was placed adjacent to the abnormality under ultrasound guidance. Once the needle was documented to be in the correct location, four specimens were obtained using an Achieve a utomated firing device. A ribbon clip was inserted into the biopsy cavity. A skin closure strip was applied to the access site. Post procedure mammographic imaging demonstrat es the clip at the targeted area. The specimens were sent to the laboratory for pathological analysis. IMPRESSION: ULTRASOUND GUIDED BIOPSY BENIGN RECOMMENDATION:Ultrasound gu ided biopsy of the 0.7 cm x 0.6 cm x 0.4 cm mass in the right breast at 9 o'clock middle depth 4 cm from the nipple was successful with no apparent post procedure co mplications. Pathology indic ates benign usual ductal hyperplasia and adenosis. Pathology results are concordant with imaging findings. A follow-up mammogram with p ossible ultrasound of the biopsied breast in 6 months is recommended to demonstrate stability.(02/25/2019) Professional services are pr ovided by the [facility]. Lisa Baker M.D. en,cm/:09/01/2018 09:24:03 Electronics Recycler(s): Cole Hartman letter sent: Post Bx Results 2018-08-26 SOHEILA Morrow 12:46:00-00:00 ULTRASOUND GUIDED BIOPSY RIG HT BREAST WITH MARKING DEVICE INSERTED AND POST MAMMOGRAPHIC IMAGIN08/26/2018 CLINICAL: R92.8 Other Abnorm al And Inconclusive Findings On Diagnostic Imaging Of Breast/Rt Breast Mass. PATIENT CONSENT: I discussed the risks, benefits and alternatives for the procedure with the patient. Patient acknowledged understanding and informed written consent was obtained. A time out was perform ed to confirm patient identification and the loc ation of the lesion. Correlation is made to exams dated: 08/03/2018 ultrasound, 08/03/2018 mammogram, [facility] An ultrasound guided biopsy using real-time ultrasound was performed for the 0.7 cm x 0.6 cm x 0.4 cm mass located in the right breast at 9 o'clock middle depth 4 cm from the nipple. This was d escribed on the previous ult rasound report. The skin was prepped in the usual manner. Local anesthetic was administered to the access site. A skin suresh was made in the breast. The abnormality was appro ached from the lateral aspec t. A 14 gauge biopsy needle was placed adjacent to the abnormality under ultrasound guidance. Once the needle was documented to be in the correct location, four specimens wer e obtained using an Achieve automated firing device. A ribbon clip was inserted into the biopsy cavity. A skin closure strip was applied to the access site. Post procedure mammographic imaging demonstra alyssa the clip at the targeted area. The specimens were sent to the laboratory for pathological analysis. IMPRESSION: ULTRASOUND GUIDED BIOPSY BENIGN RECOMMENDATION:Ultrasound gu ided biopsy of the 0.7 cm x 0.6 cm x 0.4 cm mass in the right breast at 9 o'clock middle depth 4 cm from the nipple was successful with no apparent post procedure co mplications. Pathology indic ates benign usual ductal hyperplasia and adenosis. Pathology results are concordant with imaging findings. A follow-up mammogram with p ossible ultrasound of the biopsied breast in 6 months is recommended to demonstrate stability.(02/25/2019) Professional services are pr ovided by the [facility]. Lisa Baker M.D. en,cm/:09/01/2018 09:24:03 Electronics Recycler(s): Cole Hartman letter sent: Post Bx Results 2018-08-26 SOHEILA Morrow 12:46:00-00:00 ULTRASOUND GUIDED BIOPSY RIG HT BREAST WITH MARKING DEVICE INSERTED AND POST MAMMOGRAPHIC IMAGIN08/26/2018 CLINICAL: R92.8 Other Abnorm al And Inconclusive Findings On Diagnostic Imaging Of Breast/Rt Breast Mass. PATIENT CONSENT: I discussed the risks, benefits and alternatives for the procedure with the patient. Patient acknowledged understanding and informed written consent was obtained. A time out was perform ed to confirm patient identification and the loc ation of the lesion. Correlation is made to exams dated: 08/03/2018 ultrasound, 08/03/2018 mammogram, and 07/07/2018 mammogram - [facility] Rodney [place]. An ultrasound guided biopsy using real-time ultrasound was performed for the 0.7 cm x 0.6 cm x 0.4 cm mass located in the right breast at 9 o'clock middle depth 4 cm from the nipple. This was d escribed on the previous ult rasound report. The skin was prepped in the usual manner. Local anesthetic was administered to the access site. A skin suresh was made in the breast. The abnormality was approa ched from the lateral aspect . A 14 gauge biopsy needle was placed adjacent to the abnormality under ultrasound guidance. Once the needle was documented to be in the correct location, four specimens were obtained using an Achieve a utomated firing device. A ribbon clip was inserted into the biopsy cavity. A skin closure strip was applied to the access site. Post procedure mammographic imaging demonstrat es the clip at the targeted area. The specimens were sent to the laboratory for pathological analysis. IMPRESSION: ULTRASOUND GUIDED BIOPSY BENIGN RECOMMENDATION:Ultrasound gu ided biopsy of the 0.7 cm x 0.6 cm x 0.4 cm mass in the right breast at 9 o'clock middle depth 4 cm from the nipple was successful with no apparent post procedure co mplications. Pathology indic ates benign usual ductal hyperplasia and adenosis. Pathology results are concordant with imaging findings. A follow-up mammogram with p ossible ultrasound of the biopsied breast in 6 months is recommended to demonstrate stability.(02/25/2019) Professional services are pr ovided by the [facility]. Lisa Baker M.D. en,cm/:09/01/2018 09:24:03 Electronics Recycler(s): Cole Hartman letter sent: Post Bx Results 2018-08-26 SOHEILA Morrow 12:46:00-00:00 ULTRASOUND GUIDED BIOPSY RIG HT BREAST WITH MARKING DEVICE INSERTED AND POST MAMMOGRAPHIC IMAGIN08/26/2018 CLINICAL: R92.8 Other Abnorm al And Inconclusive Findings On Diagnostic Imaging Of Breast/Rt Breast Mass. PATIENT CONSENT: I discussed the risks, benefits and alternatives for the procedure with the patient. Patient acknowledged understanding and informed written consent was obtained. A time out was perform ed to confirm patient identification and the loc ation of the lesion. Correlation is made to exams dated: 08/03/2018 ultrasound, 08/03/2018 mammogram, and 07/07/2018 mammogram - [facility] Rodney Morrow. An ultrasound guided biopsy using real-time ultrasound was performed for the 0.7 cm x 0.6 cm x 0.4 cm mass located in the right breast at 9 o'clock middle depth 4 cm from the nipple. This was d escribed on the previous t rasound report. The skin was prepped in the usual manner. Local anesthetic was administered to the access site. A skin suresh was made in the breast. The abnormality was approa ched from the lateral aspect . A 14 gauge biopsy needle was placed adjacent to the abnormality under ultrasound guidance. Once the needle was documented to be in the correct location, four specimens were obtained using an Achieve a utomated firing device. A ribbon clip was inserted into the biopsy cavity. A skin closure strip was applied to the access site. Post procedure mammographic imaging demonstrat es the clip at the targeted area. The specimens were sent to the laboratory for pathological analysis. IMPRESSION: ULTRASOUND GUIDED BIOPSY BENIGN RECOMMENDATION:Ultrasound gu ided biopsy of the 0.7 cm x 0.6 cm x 0.4 cm mass in the right breast at 9 o'clock middle depth 4 cm from the nipple was successful with no apparent post procedure co mplications. Pathology indic ates benign usual ductal hyperplasia and adenosis. Pathology results are concordant with imaging findings. A follow-up mammogram with p ossible ultrasound of the biopsied breast in 6 months is recommended to demonstrate stability.(02/25/2019) Professional services are pr ovided by the [facility]. Lisa Baker M.D. en,cm/:09/01/2018 09:24:03 Electronics Recycler(s): Cole Hartman letter sent: Post Bx Results 2018-08-26 SOHEILA Morrow 12:46:00-00:00 ULTRASOUND GUIDED BIOPSY RIG HT BREAST WITH MARKING DEVICE INSERTED AND POST MAMMOGRAPHIC IMAGIN08/26/2018 CLINICAL: R92.8 Other Abnorm al And Inconclusive Findings On Diagnostic Imaging Of Breast/Rt Breast Mass. PATIENT CONSENT: I discussed the risks, benefits and alternatives for the procedure with the patient. Patient acknowledged understanding and informed written consent was obtained. A time out was perform ed to confirm patient identification and the loc ation of the lesion. Correlation is made to exams dated: 08/03/2018 ultrasound, 08/03/2018 mammogram, and 07/07/2018 mammogram - [facility] Rodney Morrow. An ultrasound guided biopsy using real-time ultrasound was performed for the 0.7 cm x 0.6 cm x 0.4 cm mass located in the right breast at 9 o'clock middle depth 4 cm from the nipple. This was d escribed on the previous ult rasound report. The skin was prepped in the usual manner. Local anesthetic was administered to the access site. A skin suresh was made in the breast. The abnormality was approa ched from the lateral aspect . A 14 gauge biopsy needle was placed adjacent to the abnormality under ultrasound guidance. Once the needle was documented to be in the correct location, four specimens were obtained using an Achieve a utomated firing device. A ribbon clip was inserted into the biopsy cavity. A skin closure strip was applied to the access site. Post procedure mammographic imaging demonstrat es the clip at the targeted area. The specimens were sent to the laboratory for pathological analysis. IMPRESSION: ULTRASOUND GUIDED BIOPSY BENIGN RECOMMENDATION:Ultrasound gu ided biopsy of the 0.7 cm x 0.6 cm x 0.4 cm mass in the right breast at 9 o'clock middle depth 4 cm from the nipple was successful with no apparent post procedure co mplications. Pathology indic ates benign usual ductal hyperplasia and adenosis. Pathology results are concordant with imaging findings. A follow-up mammogram with p ossible ultrasound of the biopsied breast in 6 months is recommended to demonstrate stability.(02/25/2019) Professional services are pr ovided by the [facility]. Lisa Baker M.D. en,cm/:09/01/2018 09:24:03 Electronics Recycler(s): Cole Hartman letter sent: Post Bx Results 2018-08-26 MODESTO Morrow 12:46:00-00:00 ULTRASOUND GUIDED BIOPSY RIG HT BREAST WITH MARKING DEVICE INSERTED AND POST MAMMOGRAPHIC IMAGIN08/26/2018 CLINICAL: R92.8 Other Abnorm al And Inconclusive Findings On Diagnostic Imaging Of Breast/Rt Breast Mass. PATIENT CONSENT: I discussed the risks, benefits and alternatives for the procedure with the patient. Patient acknowledged understanding and informed written consent was obtained. A time out was perform ed to confirm patient identification and the loc ation of the lesion. Correlation is made to exams dated: 08/03/2018 ultrasound, 08/03/2018 mammogram, [facility] An ultrasound guided biopsy using real-time ultrasound was performed for the 0.7 cm x 0.6 cm x 0.4 cm mass located in the right breast at 9 o'clock middle depth 4 cm from the nipple. This was d escribed on the previous ult rasound report. The skin was prepped in the usual manner. Local anesthetic was administered to the access site. A skin suresh was made in the breast. The abnormality was approa ched from the lateral aspect . A 14 gauge biopsy needle was placed adjacent to the abnormality under ultrasound guidance. Once the needle was documented to be in the correct location, four specimens were obtained using an Achieve a utomated firing device. A ribbon clip was inserted into the biopsy cavity. A skin closure strip was applied to the access site. Post procedure mammographic imaging demonstrat es the clip at the targeted area. The specimens were sent to the laboratory for pathological analysis. IMPRESSION: ULTRASOUND GUIDED BIOPSY BENIGN RECOMMENDATION:Ultrasound gu ided biopsy of the 0.7 cm x 0.6 cm x 0.4 cm mass in the right breast at 9 o'clock middle depth 4 cm from the nipple was successful with no apparent post procedure co mplications. Pathology indic ates benign usual ductal hyperplasia and adenosis. Pathology results are concordant with imaging findings. A follow-up mammogram with p ossible ultrasound of the biopsied breast in 6 months is recommended to demonstrate stability.(02/25/2019) Professional services are pr ovided by the [facility]. Lisa Baker M.D. en,cm/:09/01/2018 09:24:03 Electronics Recycler(s): Cole Hartman letter sent: Post Bx Results 2018-08-26 MODESTO Morrow 12:46:00-00:00 ULTRASOUND GUIDED BIOPSY RIG HT BREAST WITH MARKING DEVICE INSERTED AND POST MAMMOGRAPHIC IMAGIN08/26/2018 CLINICAL: R92.8 Other Abnorm al And Inconclusive Findings On Diagnostic Imaging Of Breast/Rt Breast Mass. PATIENT CONSENT: I discussed the risks, benefits and alternatives for the procedure with the patient. Patient acknowledged understanding and informed written consent was obtained. A time out was perform ed to confirm patient identification and the loc ation of the lesion. Correlation is made to exams dated: 08/03/2018 ultrasound, 08/03/2018 mammogram, and 07/07/2018 mammogram - Braden Morrow. An ultrasound guided biopsy using real-time ultrasound was performed for the 0.7 cm x 0.6 cm x 0.4 cm mass located in the right breast at 9 o'clock middle depth 4 cm from the nipple. This was d escribed on the previous ult rasound report. The skin was prepped in the usual manner. Local anesthetic was administered to the access site. A skin suresh was made in the breast. The abnormality was approa ched from the lateral aspect . A 14 gauge biopsy needle was placed adjacent to the abnormality under ultrasound guidance. Once the needle was documented to be in the correct location, four specimens were obtained using an Achieve a utomated firing device. A ribbon clip was inserted into the biopsy cavity. A skin closure strip was applied to the access site. Post procedure mammographic imaging demonstrat es the clip at the targeted area. The specimens were sent to the laboratory for pathological analysis. IMPRESSION: ULTRASOUND GUIDED BIOPSY BENIGN RECOMMENDATION:Ultrasound gu ided biopsy of the 0.7 cm x 0.6 cm x 0.4 cm mass in the right breast at 9 o'clock middle depth 4 cm from the nipple was successful with no apparent post procedure co mplications. Pathology indic ates benign usual ductal hyperplasia and adenosis. Pathology results are concordant with imaging findings. A follow-up mammogram with p ossible ultrasound of the biopsied breast in 6 months is recommended to demonstrate stability.(02/25/2019) Professional services are pr ovided by the [facility]. Lisa Baker M.D. en,cm/:09/01/2018 09:24:03 Electronics Recycler(s): Cole Hartman letter sent: Post Bx Results 2018-08-03 SOHEILA Morrow 15:28:00-00:00 COMPLETE ULTRASOUND OF BOTH BREASTS AND AXILLA: 08/03/2018 CLINICAL: R92.2 Inconclusive Mammogram/Abnormal Mammo/ Dense Breasts. COMPARISON:Comparison is mad e to exams dated: 08/03/2018 [facility] TECHNIQUE: Color flow and re al-time ultrasound of both breasts four quadrants, retroareolar, both axilla and right infraclavicular and internal mammary regions were performed. Vicente scale images of the real-time examination were reviewed. FINDINGS: There is 0.7 cm x 0.6 cm x 0 .4 cm oval mass with an indistinct margin in the right breast at 9 o'clock middle depth 4 cm from the nipple. This oval mass is hypoechoic. This correlates as an inc idental finding. Color flow imaging demonstrates that there is no vascularity present. There also is 0.5 cm x 0.4 c m x 0.3 cm oval mass with a circumscribed margin in the right breast at 6 o'clock in the retroareolar region. This oval mass is hypoechoic. This correlates as an inc idental finding. Color flow imaging demonstrates that there is vascularity present. There is 0.7 cm x 0.5 cm x 0 .4 cm oval mass with a circumscribed margin in the left breast at 11 o'clock posterior depth 5 cm from the nipple. This oval mass is hypoechoic. This correlates with mammography findings. Color flow imaging demonstrates that there is no vascularity present. A few tiny benign scattered cysts are seen in the left breast. No abnormalities were seen s onographically in either axilla and the right infraclavicular and internal mammary regions. IMPRESSION: SUSPICIOUS OF MALIGNANCY RECOMMENDATION:The 0.7 cm x 0.6 cm x 0.4 cm oval mass in the right breast at 9 o'clock middle depth is suspicious of malignancy. An ultrasound guided biopsy is recommended. The 0.5 cm x 0.4 cm x 0.3 cm oval mass in the right breast at 6 o'clock in the retroareolar region is probably benign. A follow-up ultrasound in 6 months is recommended. The 0.7 cm x 0.5 cm x 0.4 cm oval mass in the left breast at 11 o'clock posterior depth is probably benign. A follow-up ultrasound in 6 months is recommended. This exam was interpreted at [id number] for MAILE Jeronimo Pe 15. SUMMARY: These findings were discusse d with the patient and her daughter at the time of examination. The staff from the [facility] will contact the patient to schedule t he biopsy. A separate report will be issued foll owing the biopsy. Professional services are pr ovided by the [facility]. Alysha Cruz M.D. ms/:08/04/2018 09:54:57 Electronics Recycler(s): Cole Hartman letter sent: BI-RADS 4/5 Ultrasound BI-RADS: 4 Suspicious abnormality 2018-08-03 SOHEILA Morrow 15:28:00-00:00 COMPLETE ULTRASOUND OF BOTH BREASTS AND AXILLA: 08/03/2018 CLINICAL: R92.2 Inconclusive Mammogram/Abnormal Mammo/ Dense Breasts. COMPARISON:Comparison is mad e to exams dated: 08/03/2018 mammogram and 07/07/2018 mammogram - [facility]. TECHNIQUE: Color flow and re al-time ultrasound of both breasts four quadrants, retroareolar, both axilla and right infraclavicular and internal mammary regions were performed. Vicente scale images of the real-time examination were reviewed. FINDINGS: There is 0.7 cm x 0.6 cm x 0 .4 cm oval mass with an indistinct margin in the right breast at 9 o'clock middle depth 4 cm from the nipple. This oval mass is hypoechoic. This correlates as an inc idental finding. Color flow imaging demonstrates that there is no vascularity present. There also is 0.5 cm x 0.4 c m x 0.3 cm oval mass with a circumscribed margin in the right breast at 6 o'clock in the retroareolar region. This oval mass is hypoechoic. This correlates as an inc idental finding. Color flow imaging demonstrates that there is vascularity present. There is 0.7 cm x 0.5 cm x 0 .4 cm oval mass with a circumscribed margin in the left breast at 11 o'clock posterior depth 5 cm from the nipple. This oval mass is hypoechoic. This correlates with mammography findings. Color flow imaging demonstrates that there is no vascularity present. A few tiny benign scattered cysts are seen in the left breast. No abnormalities were seen s onographically in either axilla and the right infraclavicular and internal mammary regions. IMPRESSION: SUSPICIOUS OF MALIGNANCY RECOMMENDATION:The 0.7 cm x 0.6 cm x 0.4 cm oval mass in the right breast at 9 o'clock middle depth is suspicious of malignancy. An ultrasound guided biopsy is recommended. The 0.5 cm x 0.4 cm x 0.3 cm oval mass in the right breast at 6 o'clock in the retroareolar region is probably benign. A follow-up ultrasound in 6 months is recommended. The 0.7 cm x 0.5 cm x 0.4 cm oval mass in the left breast at 11 o'clock posterior depth is probably benign. A follow-up ultrasound in 6 months is recommended. This exam was interpreted at [id number] for MODESTO fournier, SL 15. SUMMARY: These findings were discusse d with the patient and her daughter at the time of examination. The staff from the [facility] will contact the patient to schedule t he biopsy. A separate report will be issued foll owing the biopsy. Professional services are pr [facility]. Alysha Cruz M.D. ms/:08/04/2018 09:54:57 Electronics Recycler(s): Cole Hartman letter sent: BI-RADS 4/5 Ultrasound BI-RADS: 4 Suspicious abnormality 2018-08-03 MODESTO Morrow 15:28:00-00:00 COMPLETE ULTRASOUND OF BOTH BREASTS AND AXILLA: 08/03/2018 CLINICAL: R92.2 Inconclusive Mammogram/Abnormal Mammo/ Dense Breasts. COMPARISON:Comparison is mad e to exams dated: 08/03/2018 mammogram and 07/07/2018 mammogram - [facility]. TECHNIQUE: Color flow and re al-time ultrasound of both breasts four quadrants, retroareolar, both axilla and right infraclavicular and internal mammary regions were performed. Vicente scale images of the real-time examination were reviewed. FINDINGS: There is 0.7 cm x 0.6 cm x 0 .4 cm oval mass with an indistinct margin in the right breast at 9 o'clock middle depth 4 cm from the nipple. This oval mass is hypoechoic. This correlates as an inc idental finding. Color flow imaging demonstrates that there is no vascularity present. There also is 0.5 cm x 0.4 c m x 0.3 cm oval mass with a circumscribed margin in the right breast at 6 o'clock in the retroareolar region. This oval mass is hypoechoic. This correlates as an inc idental finding. Color flow imaging demonstrates that there is vascularity present. There is 0.7 cm x 0.5 cm x 0 .4 cm oval mass with a circumscribed margin in the left breast at 11 o'clock posterior depth 5 cm from the nipple. This oval mass is hypoechoic. This correlates with mammography findings. Color flow imaging demonstrates that there is no vascularity present. A few tiny benign scattered cysts are seen in the left breast. No abnormalities were seen s onographically in either axilla and the right infraclavicular and internal mammary regions. IMPRESSION: SUSPICIOUS OF MALIGNANCY RECOMMENDATION:The 0.7 cm x 0.6 cm x 0.4 cm oval mass in the right breast at 9 o'clock middle depth is suspicious of malignancy. An ultrasound guided biopsy is recommended. The 0.5 cm x 0.4 cm x 0.3 cm oval mass in the right breast at 6 o'clock in the retroareolar region is probably benign. A follow-up ultrasound in 6 months is recommended. The 0.7 cm x 0.5 cm x 0.4 cm oval mass in the left breast at 11 o'clock posterior depth is probably benign. A follow-up ultrasound in 6 months is recommended. This exam was interpreted at [id number] for MAILE Jeronimo Pe 15. SUMMARY: These findings were discusse d with the patient and her daughter at the time of examination. The staff from the [facility] will contact the patient to schedule t he biopsy. A separate report will be issued foll owing the biopsy. Professional services are pr ovided by the [facility]. Alysha Cruz M.D. ms/:08/04/2018 09:54:57 Electronics Recycler(s): Cole Hartman letter sent: BI-RADS 4/5 Ultrasound BI-RADS: 4 Suspicious abnormality 2018-08-03 MODESTO Morrow 15:28:00-00:00 COMPLETE ULTRASOUND OF BOTH BREASTS AND AXILLA: 08/03/2018 CLINICAL: R92.2 Inconclusive Mammogram/Abnormal Mammo/ Dense Breasts. COMPARISON:Comparison is mad e to exams dated: 08/03/2018 mammogram and 07/07/2018 mammogram - [facility]. TECHNIQUE: Color flow and re al-time ultrasound of both breasts four quadrants, retroareolar, both axilla and right infraclavicular and internal mammary regions were performed. Vicente scale images of the real-time examination were reviewed. FINDINGS: There is 0.7 cm x 0.6 cm x 0 .4 cm oval mass with an indistinct margin in the right breast at 9 o'clock middle depth 4 cm from the nipple. This oval mass is hypoechoic. This correlates as an inc idental finding. Color flow imaging demonstrates that there is no vascularity present. There also is 0.5 cm x 0.4 c m x 0.3 cm oval mass with a circumscribed margin in the right breast at 6 o'clock in the retroareolar region. This oval mass is hypoechoic. This correlates as an inc idental finding. Color flow imaging demonstrates that there is vascularity present. There is 0.7 cm x 0.5 cm x 0 .4 cm oval mass with a circumscribed margin in the left breast at 11 o'clock posterior depth 5 cm from the nipple. This oval mass is hypoechoic. This correlates with mammography findings. Color flow imaging demonstrates that there is no vascularity present. A few tiny benign scattered cysts are seen in the left breast. No abnormalities were seen s onographically in either axilla and the right infraclavicular and internal mammary regions. IMPRESSION: SUSPICIOUS OF MALIGNANCY RECOMMENDATION:The 0.7 cm x 0.6 cm x 0.4 cm oval mass in the right breast at 9 o'clock middle depth is suspicious of malignancy. An ultrasound guided biopsy is recommended. The 0.5 cm x 0.4 cm x 0.3 cm oval mass in the right breast at 6 o'clock in the retroareolar region is probably benign. A follow-up ultrasound in 6 months is recommended. The 0.7 cm x 0.5 cm x 0.4 cm oval mass in the left breast at 11 o'clock posterior depth is probably benign. A follow-up ultrasound in 6 months is recommended. This exam was interpreted at [id number] for MAILE Jeronimo Pe 15. SUMMARY: These findings were discusse d with the patient and her daughter at the time of examination. The staff from the [facility] will contact the patient to schedule t he biopsy. A separate report will be issued foll owing the biopsy. Professional services are pr ovided by the [facility]. Alysha Cruz M.D. ms/:08/04/2018 09:54:57 Electronics Recycler(s): Coel Hartman [facility] letter sent: BI-RADS 4/5 Ultrasound BI-RADS: 4 Suspicious abnormality 2018-08-03 SOHEILA Morrow 15:28:00-00:00 COMPLETE ULTRASOUND OF BOTH BREASTS AND AXILLA: 08/03/2018 CLINICAL: R92.2 Inconclusive Mammogram/Abnormal Mammo/ Dense Breasts. COMPARISON:Comparison is mad e to exams dated: 08/03/2018 mammogram and 07/07/2018 mammogram - [facility]. TECHNIQUE: Color flow and re al-time ultrasound of both breasts four quadrants, retroareolar, both axilla and right infraclavicular and internal mammary regions were performed. Vicente scale images of the real-time examination were reviewed. FINDINGS: There is 0.7 cm x 0.6 cm x 0 .4 cm oval mass with an indistinct margin in the right breast at 9 o'clock middle depth 4 cm from the nipple. This oval mass is hypoechoic. This correlates as an inc idental finding. Color flow imaging demonstrates that there is no vascularity present. There also is 0.5 cm x 0.4 c m x 0.3 cm oval mass with a circumscribed margin in the right breast at 6 o'clock in the retroareolar region. This oval mass is hypoechoic. This correlates as an inc idental finding. Color flow imaging demonstrates that there is vascularity present. There is 0.7 cm x 0.5 cm x 0 .4 cm oval mass with a circumscribed margin in the left breast at 11 o'clock posterior depth 5 cm from the nipple. This oval mass is hypoechoic. This correlates with mammography findings. Color flow imaging demonstrates that there is no vascularity present. A few tiny benign scattered cysts are seen in the left breast. No abnormalities were seen s onographically in either axilla and the right infraclavicular and internal mammary regions. IMPRESSION: SUSPICIOUS OF MALIGNANCY RECOMMENDATION:The 0.7 cm x 0.6 cm x 0.4 cm oval mass in the right breast at 9 o'clock middle depth is suspicious of malignancy. An ultrasound guided biopsy is recommended. The 0.5 cm x 0.4 cm x 0.3 cm oval mass in the right breast at 6 o'clock in the retroareolar region is probably benign. A follow-up ultrasound in 6 months is recommended. The 0.7 cm x 0.5 cm x 0.4 cm oval mass in the left breast at 11 o'clock posterior depth is probably benign. A follow-up ultrasound in 6 months is recommended. This exam was interpreted at [id number] for MODESTO fournier, SL 15. SUMMARY: These findings were discusse d with the patient and her daughter at the time of examination. The staff from the [facility] will contact the patient to schedule t he biopsy. A separate report will be issued foll owing the biopsy. Professional services are pr ovided by the [facility]. Alysha Cruz M.D. ms/:08/04/2018 09:54:57 Electronics Recycler(s): Cole Hartman letter sent: BI-RADS 4/5 Ultrasound BI-RADS: 4 Suspicious abnormality 2018-08-03 MODESTO Morrow 15:28:00-00:00 COMPLETE ULTRASOUND OF BOTH BREASTS AND AXILLA: 08/03/2018 CLINICAL: R92.2 Inconclusive Mammogram/Abnormal Mammo/ Dense Breasts. COMPARISON:Comparison is mad e to exams dated: 08/03/2018 mammogram and 07/07/2018 mammogram - [facility]. TECHNIQUE: Color flow and re al-time ultrasound of both breasts four quadrants, retroareolar, both axilla and right infraclavicular and internal mammary regions were performed. Vicente scale images of the real-time examination were reviewed. FINDINGS: There is 0.7 cm x 0.6 cm x 0 .4 cm oval mass with an indistinct margin in the right breast at 9 o'clock middle depth 4 cm from the nipple. This oval mass is hypoechoic. This correlates as an inc idental finding. Color flow imaging demonstrates that there is no vascularity present. There also is 0.5 cm x 0.4 c m x 0.3 cm oval mass with a circumscribed margin in the right breast at 6 o'clock in the retroareolar region. This oval mass is hypoechoic. This correlates as an inc idental finding. Color flow imaging demonstrates that there is vascularity present. There is 0.7 cm x 0.5 cm x 0 .4 cm oval mass with a circumscribed margin in the left breast at 11 o'clock posterior depth 5 cm from the nipple. This oval mass is hypoechoic. This correlates with mammography findings. Color flow imaging demonstrates that there is no vascularity present. A few tiny benign scattered cysts are seen in the left breast. No abnormalities were seen s onographically in either axilla and the right infraclavicular and internal mammary regions. IMPRESSION: SUSPICIOUS OF MALIGNANCY RECOMMENDATION:The 0.7 cm x 0.6 cm x 0.4 cm oval mass in the right breast at 9 o'clock middle depth is suspicious of malignancy. An ultrasound guided biopsy is recommended. The 0.5 cm x 0.4 cm x 0.3 cm oval mass in the right breast at 6 o'clock in the retroareolar region is probably benign. A follow-up ultrasound in 6 months is recommended. The 0.7 cm x 0.5 cm x 0.4 cm oval mass in the left breast at 11 o'clock posterior depth is probably benign. A follow-up ultrasound in 6 months is recommended. This exam was interpreted at [id number] for MAIEL Jeronimo Pe 15. SUMMARY: These findings were discusse d with the patient and her daughter at the time of examination. The staff from the [facility] will contact the patient to schedule t he biopsy. A separate report will be issued foll owing the biopsy. Professional services are pr ovided by the [facility] Diagnostic [facility]. Alysha Cruz M.D. ms/:08/04/2018 09:54:57 Electronics Recycler(s): Cole Hartman letter sent: BI-RADS 4/5 Ultrasound BI-RADS: 4 Suspicious abnormality 2018-08-03 MODESTO Morrow 15:28:00-00:00 COMPLETE ULTRASOUND OF BOTH BREASTS AND AXILLA: 08/03/2018 CLINICAL: R92.2 Inconclusive Mammogram/Abnormal Mammo/ Dense Breasts. COMPARISON:Comparison is mad e to exams dated: 08/03/2018 mammogram and 07/07/2018 mammogram - [facility] [place]. TECHNIQUE: Color flow and re al-time ultrasound of both breasts four quadrants, retroareolar, both axilla and right infraclavicular and internal mammary regions were performed. Vicente scale images of the real-time examination were reviewed. FINDINGS: There is 0.7 cm x 0.6 cm x 0 .4 cm oval mass with an indistinct margin in the right breast at 9 o'clock middle depth 4 cm from the nipple. This oval mass is hypoechoic. This correlates as an inc idental finding. Color flow imaging demonstrates that there is no vascularity present. There also is 0.5 cm x 0.4 c m x 0.3 cm oval mass with a circumscribed margin in the right breast at 6 o'clock in the retroareolar region. This oval mass is hypoechoic. This correlates as an inc idental finding. Color flow imaging demonstrates that there is vascularity present. There is 0.7 cm x 0.5 cm x 0 .4 cm oval mass with a circumscribed margin in the left breast at 11 o'clock posterior depth 5 cm from the nipple. This oval mass is hypoechoic. This correlates with mammography findings. Color flow imaging demonstrates that there is no vascularity present. A few tiny benign scattered cysts are seen in the left breast. No abnormalities were seen s onographically in either axilla and the right infraclavicular and internal mammary regions. IMPRESSION: SUSPICIOUS OF MALIGNANCY RECOMMENDATION:The 0.7 cm x 0.6 cm x 0.4 cm oval mass in the right breast at 9 o'clock middle depth is suspicious of malignancy. An ultrasound guided biopsy is recommended. The 0.5 cm x 0.4 cm x 0.3 cm oval mass in the right breast at 6 o'clock in the retroareolar region is probably benign. A follow-up ultrasound in 6 months is recommended. The 0.7 cm x 0.5 cm x 0.4 cm oval mass in the left breast at 11 o'clock posterior depth is probably benign. A follow-up ultrasound in 6 months is recommended. This exam was interpreted at [id number] for MAILE Jeronimo Pe 15. SUMMARY: These findings were discusse d with the patient and her daughter at the time of examination. The staff from the [facility] will contact the patient to schedule t he biopsy. A separate report will be issued foll owing the biopsy. Professional services are pr ovided by the [facility]. Alysha Cruz M.D. ms/:08/04/2018 09:54:57 Electronics Recycler(s): Cole Hartman letter sent: BI-RADS 4/5 Ultrasound BI-RADS: 4 Suspicious abnormality 2018-08-03 SOHEILA Morrow 15:28:00-00:00 COMPLETE ULTRASOUND OF BOTH BREASTS AND AXILLA: 08/03/2018 CLINICAL: R92.2 Inconclusive Mammogram/Abnormal Mammo/ Dense Breasts. COMPARISON:Comparison is mad e to exams dated: 08/03/2018 mammogram and 07/07/2018 [facility] [place]. TECHNIQUE: Color flow and re al-time ultrasound of both breasts four quadrants, retroareolar, both axilla and right infraclavicular and internal mammary regions were performed. Vicente scale images of the real-time examination were reviewed. FINDINGS: There is 0.7 cm x 0.6 cm x 0 .4 cm oval mass with an indistinct margin in the right breast at 9 o'clock middle depth 4 cm from the nipple. This oval mass is hypoechoic. This correlates as an inc idental finding. Color flow imaging demonstrates that there is no vascularity present. There also is 0.5 cm x 0.4 c m x 0.3 cm oval mass with a circumscribed margin in the right breast at 6 o'clock in the retroareolar region. This oval mass is hypoechoic. This correlates as an inc idental finding. Color flow imaging demonstrates that there is vascularity present. There is 0.7 cm x 0.5 cm x 0 .4 cm oval mass with a circumscribed margin in the left breast at 11 o'clock posterior depth 5 cm from the nipple. This oval mass is hypoechoic. This correlates with mammography findings. Color flow imaging demonstrates that there is no vascularity present. A few tiny benign scattered cysts are seen in the left breast. No abnormalities were seen s onographically in either axilla and the right infraclavicular and internal mammary regions. IMPRESSION: SUSPICIOUS OF MALIGNANCY RECOMMENDATION:The 0.7 cm x 0.6 cm x 0.4 cm oval mass in the right breast at 9 o'clock middle depth is suspicious of malignancy. An ultrasound guided biopsy is recommended. The 0.5 cm x 0.4 cm x 0.3 cm oval mass in the right breast at 6 o'clock in the retroareolar region is probably benign. A follow-up ultrasound in 6 months is recommended. The 0.7 cm x 0.5 cm x 0.4 cm oval mass in the left breast at 11 o'clock posterior depth is probably benign. A follow-up ultrasound in 6 months is recommended. This exam was interpreted at [id number] for MODESTO fournier, SL 15. SUMMARY: These findings were discusse d with the patient and her daughter at the time of examination. The staff from the [facility] will contact the patient to schedule t he biopsy. A separate report will be issued foll owing the biopsy. Professional services are pr ovided by the [facility] Division of Diagnostic Imaging. Alysha Cruz M.D. ms/:08/04/2018 09:54:57 Electronics Recycler(s): Cole Hartman letter sent: BI-RADS 4/5 Ultrasound BI-RADS: 4 Suspicious abnormality 2018-08-03 MODESTO Morrow 15:28:00-00:00 COMPLETE ULTRASOUND OF BOTH BREASTS AND AXILLA: 08/03/2018 CLINICAL: R92.2 Inconclusive Mammogram/Abnormal Mammo/ Dense Breasts. COMPARISON:Comparison is mad e to exams dated: 08/03/2018 mammogram and 07/07/2018 mammogram - [facility]. TECHNIQUE: Color flow and re al-time ultrasound of both breasts four quadrants, retroareolar, both axilla and right infraclavicular and internal mammary regions were performed. Vicente scale images of the real-time examination were reviewed. FINDINGS: There is 0.7 cm x 0.6 cm x 0 .4 cm oval mass with an indistinct margin in the right breast at 9 o'clock middle depth 4 cm from the nipple. This oval mass is hypoechoic. This correlates as an inc idental finding. Color flow imaging demonstrates that there is no vascularity present. There also is 0.5 cm x 0.4 c m x 0.3 cm oval mass with a circumscribed margin in the right breast at 6 o'clock in the retroareolar region. This oval mass is hypoechoic. This correlates as an inc idental finding. Color flow imaging demonstrates that there is vascularity present. There is 0.7 cm x 0.5 cm x 0 .4 cm oval mass with a circumscribed margin in the left breast at 11 o'clock posterior depth 5 cm from the nipple. This oval mass is hypoechoic. This correlates with mammography findings. Color flow imaging demonstrates that there is no vascularity present. A few tiny benign scattered cysts are seen in the left breast. No abnormalities were seen s onographically in either axilla and the right infraclavicular and internal mammary regions. IMPRESSION: SUSPICIOUS OF MALIGNANCY RECOMMENDATION:The 0.7 cm x 0.6 cm x 0.4 cm oval mass in the right breast at 9 o'clock middle depth is suspicious of malignancy. An ultrasound guided biopsy is recommended. The 0.5 cm x 0.4 cm x 0.3 cm oval mass in the right breast at 6 o'clock in the retroareolar region is probably benign. A follow-up ultrasound in 6 months is recommended. The 0.7 cm x 0.5 cm x 0.4 cm oval mass in the left breast at 11 o'clock posterior depth is probably benign. A follow-up ultrasound in 6 months is recommended. This exam was interpreted at [id number] for MAILE Jeronimo Pe 15. SUMMARY: These findings were discusse d with the patient and her daughter at the time of examination. The staff from the [facility] will contact the patient to schedule t he biopsy. A separate report will be issued foll owing the biopsy. Professional services are pr ovided by the [facility] Diagnostic Imaging. Alysha Cruz M.D. ms/:08/04/2018 09:54:57 Electronics Recycler(s): Cole Hartman letter sent: BI-RADS 4/5 Ultrasound BI-RADS: 4 Suspicious abnormality 2018-08-03 MODESTO Morrow 15:28:00-00:00 COMPLETE ULTRASOUND OF BOTH BREASTS AND AXILLA: 08/03/2018 CLINICAL: R92.2 Inconclusive Mammogram/Abnormal Mammo/ Dense Breasts. COMPARISON:Comparison is mad e to exams dated: 08/03/2018 mammogram and 07/07/2018 mammogram - [facility]. TECHNIQUE: Color flow and re al-time ultrasound of both breasts four quadrants, retroareolar, both axilla and right infraclavicular and internal mammary regions were performed. Vicente scale images of the real-time examination were reviewed. FINDINGS: There is 0.7 cm x 0.6 cm x 0 .4 cm oval mass with an indistinct margin in the right breast at 9 o'clock middle depth 4 cm from the nipple. This oval mass is hypoechoic. This correlates as an inc idental finding. Color flow imaging demonstrates that there is no vascularity present. There also is 0.5 cm x 0.4 c m x 0.3 cm oval mass with a circumscribed margin in the right breast at 6 o'clock in the retroareolar region. This oval mass is hypoechoic. This correlates as an inc idental finding. Color flow imaging demonstrates that there is vascularity present. There is 0.7 cm x 0.5 cm x 0 .4 cm oval mass with a circumscribed margin in the left breast at 11 o'clock posterior depth 5 cm from the nipple. This oval mass is hypoechoic. This correlates with mammography findings. Color flow imaging demonstrates that there is no vascularity present. A few tiny benign scattered cysts are seen in the left breast. No abnormalities were seen s onographically in either axilla and the right infraclavicular and internal mammary regions. IMPRESSION: SUSPICIOUS OF MALIGNANCY RECOMMENDATION:The 0.7 cm x 0.6 cm x 0.4 cm oval mass in the right breast at 9 o'clock middle depth is suspicious of malignancy. An ultrasound guided biopsy is recommended. The 0.5 cm x 0.4 cm x 0.3 cm oval mass in the right breast at 6 o'clock in the retroareolar region is probably benign. A follow-up ultrasound in 6 months is recommended. The 0.7 cm x 0.5 cm x 0.4 cm oval mass in the left breast at 11 o'clock posterior depth is probably benign. A follow-up ultrasound in 6 months is recommended. This exam was interpreted at [id number] for MAILE Jeronimo Pe 15. SUMMARY: These findings were discusse d with the patient and her daughter at the time of examination. The staff from the [facility] will contact the patient to schedule t he biopsy. A separate report will be issued foll owing the biopsy. Professional services are pr ovided by the [facility] Division of Diagnostic Imaging. Alysha Cruz M.D. ms/:08/04/2018 09:54:57 Electronics Recycler(s): Cole Hartman [place] letter sent: BI-RADS 4/5 Ultrasound BI-RADS: 4 Suspicious abnormality 2018-08-03 SOHEILA Morrow 15:28:00-00:00 COMPLETE ULTRASOUND OF BOTH BREASTS AND AXILLA: 08/03/2018 CLINICAL: R92.2 Inconclusive Mammogram/Abnormal Mammo/ Dense Breasts. COMPARISON:Comparison is mad e to exams dated: 08/03/2018 mammogram and 07/07/2018 mammogram - [facility]. TECHNIQUE: Color flow and re al-time ultrasound of both breasts four quadrants, retroareolar, both axilla and right infraclavicular and internal mammary regions were performed. Vicente scale images of the real-time examination were reviewed. FINDINGS: There is 0.7 cm x 0.6 cm x 0 .4 cm oval mass with an indistinct margin in the right breast at 9 o'clock middle depth 4 cm from the nipple. This oval mass is hypoechoic. This correlates as an inc idental finding. Color flow imaging demonstrates that there is no vascularity present. There also is 0.5 cm x 0.4 c m x 0.3 cm oval mass with a circumscribed margin in the right breast at 6 o'clock in the retroareolar region. This oval mass is hypoechoic. This correlates as an inc idental finding. Color flow imaging demonstrates that there is vascularity present. There is 0.7 cm x 0.5 cm x 0 .4 cm oval mass with a circumscribed margin in the left breast at 11 o'clock posterior depth 5 cm from the nipple. This oval mass is hypoechoic. This correlates with mammography findings. Color flow imaging demonstrates that there is no vascularity present. A few tiny benign scattered cysts are seen in the left breast. No abnormalities were seen s onographically in either axilla and the right infraclavicular and internal mammary regions. IMPRESSION: SUSPICIOUS OF MALIGNANCY RECOMMENDATION:The 0.7 cm x 0.6 cm x 0.4 cm oval mass in the right breast at 9 o'clock middle depth is suspicious of malignancy. An ultrasound guided biopsy is recommended. The 0.5 cm x 0.4 cm x 0.3 cm oval mass in the right breast at 6 o'clock in the retroareolar region is probably benign. A follow-up ultrasound in 6 months is recommended. The 0.7 cm x 0.5 cm x 0.4 cm oval mass in the left breast at 11 o'clock posterior depth is probably benign. A follow-up ultrasound in 6 months is recommended. This exam was interpreted at [id number] for MAILE Jeronimo Pe 15. SUMMARY: These findings were discusse d with the patient and her daughter at the time of examination. The staff from the [facility] will contact the patient to schedule t he biopsy. A separate report will be issued foll owing the biopsy. Professional services are pr ovided by the [facility] of Diagnostic Imaging. Alysha Cruz M.D. ms/:08/04/2018 09:54:57 Electronics Recycler(s): Cole Hartman letter sent: BI-RADS 4/5 Ultrasound BI-RADS: 4 Suspicious abnormality 2018-08-03 MODESTO Morrow 15:28:00-00:00 COMPLETE ULTRASOUND OF BOTH BREASTS AND AXILLA: 08/03/2018 CLINICAL: R92.2 Inconclusive Mammogram/Abnormal Mammo/ Dense Breasts. COMPARISON:Comparison is mad e to exams dated: 08/03/2018 mammogram and 07/07/2018 mammogram - [facility]. TECHNIQUE: Color flow and re al-time ultrasound of both breasts four quadrants, retroareolar, both axilla and right infraclavicular and internal mammary regions were performed. Vicente scale images of the real-time examination were reviewed. FINDINGS: There is 0.7 cm x 0.6 cm x 0 .4 cm oval mass with an indistinct margin in the right breast at 9 o'clock middle depth 4 cm from the nipple. This oval mass is hypoechoic. This correlates as an inc idental finding. Color flow imaging demonstrates that there is no vascularity present. There also is 0.5 cm x 0.4 c m x 0.3 cm oval mass with a circumscribed margin in the right breast at 6 o'clock in the retroareolar region. This oval mass is hypoechoic. This correlates as an inc idental finding. Color flow imaging demonstrates that there is vascularity present. There is 0.7 cm x 0.5 cm x 0 .4 cm oval mass with a circumscribed margin in the left breast at 11 o'clock posterior depth 5 cm from the nipple. This oval mass is hypoechoic. This correlates with mammography findings. Color flow imaging demonstrates that there is no vascularity present. A few tiny benign scattered cysts are seen in the left breast. No abnormalities were seen s onographically in either axilla and the right infraclavicular and internal mammary regions. IMPRESSION: SUSPICIOUS OF MALIGNANCY RECOMMENDATION:The 0.7 cm x 0.6 cm x 0.4 cm oval mass in the right breast at 9 o'clock middle depth is suspicious of malignancy. An ultrasound guided biopsy is recommended. The 0.5 cm x 0.4 cm x 0.3 cm oval mass in the right breast at 6 o'clock in the retroareolar region is probably benign. A follow-up ultrasound in 6 months is recommended. The 0.7 cm x 0.5 cm x 0.4 cm oval mass in the left breast at 11 o'clock posterior depth is probably benign. A follow-up ultrasound in 6 months is recommended. This exam was interpreted at [id number] for MAILE Jeronimo Pe 15. SUMMARY: These findings were discusse d with the patient and her daughter at the time of examination. The staff from the [facility] will contact the patient to schedule t he biopsy. A separate report will be issued foll owing the biopsy. Professional services are pr ovided by the [facility] Diagnostic Imaging. Alysah Cruz M.D. ms/:08/04/2018 09:54:57 Electronics Recycler(s): Cole Hartman letter sent: BI-RADS 4/5 Ultrasound BI-RADS: 4 Suspicious abnormality 2018-08-03 MODESTO Morrow 15:28:00-00:00 COMPLETE ULTRASOUND OF BOTH BREASTS AND AXILLA: 08/03/2018 CLINICAL: R92.2 Inconclusive Mammogram/Abnormal Mammo/ Dense Breasts. COMPARISON:Comparison is mad e to exams dated: 08/03/2018 mammogram and 07/07/2018 mammogram - [facility]. TECHNIQUE: Color flow and re al-time ultrasound of both breasts four quadrants, retroareolar, both axilla and right infraclavicular and internal mammary regions were performed. Vicente scale images of the real-time examination were reviewed. FINDINGS: There is 0.7 cm x 0.6 cm x 0 .4 cm oval mass with an indistinct margin in the right breast at 9 o'clock middle depth 4 cm from the nipple. This oval mass is hypoechoic. This correlates as an inc idental finding. Color flow imaging demonstrates that there is no vascularity present. There also is 0.5 cm x 0.4 c m x 0.3 cm oval mass with a circumscribed margin in the right breast at 6 o'clock in the retroareolar region. This oval mass is hypoechoic. This correlates as an inc idental finding. Color flow imaging demonstrates that there is vascularity present. There is 0.7 cm x 0.5 cm x 0 .4 cm oval mass with a circumscribed margin in the left breast at 11 o'clock posterior depth 5 cm from the nipple. This oval mass is hypoechoic. This correlates wit h mammography findings. Kramer r flow imaging demonstrates that there is no vascularity present. A few tiny benign scattered cysts are seen in the left breast. No abnormalities were seen s onographically in either axilla and the right infraclavicular and internal mammary regions. IMPRESSION: SUSPICIOUS OF MALIGNANCY RECOMMENDATION:The 0.7 cm x 0.6 cm x 0.4 cm oval mass in the right breast at 9 o'clock middle depth is suspicious of malignancy. An ultrasound guided biopsy is recommended. The 0.5 cm x 0.4 cm x 0.3 cm oval mass in the right breast at 6 o'clock in the retroareolar region is probably benign. A follow-up ultrasound in 6 months is recommended. The 0.7 cm x 0.5 cm x 0.4 cm oval mass in the left breast at 11 o'clock posterior depth is probably benign. A follow-up ultrasound in 6 months is recommended. This exam was interpreted at [id number] for MODESTO fournier, SL 15. SUMMARY: These findings were discusse d with the patient and her daughter at the time of examination. The staff from the [facility] will contact the patient to schedule t he biopsy. A separate report will be issued foll owing the biopsy. Professional services are pr ovided by the [facility]. Alysha Cruz M.D. ms/:08/04/2018 09:54:57 Electronics Recycler(s): Cole Hartman letter sent: BI-RADS 4/5 Ultrasound BI-RADS: 4 Suspicious abnormality 2018-08-03 MODESTO Morrow 15:28:00-00:00 COMPLETE ULTRASOUND OF BOTH BREASTS AND AXILLA: 08/03/2018 CLINICAL: R92.2 Inconclusive Mammogram/Abnormal Mammo/ Dense Breasts. COMPARISON:Comparison is mad e to exams dated: 08/03/2018 mammogram and 07/07/2018 mammogram - [facility]. TECHNIQUE: Color flow and re al-time ultrasound of both breasts four quadrants, retroareolar, both axilla and right infraclavicular and internal mammary regions were performed. Vicente scale images of the real-time examination were reviewed. FINDINGS: There is 0.7 cm x 0.6 cm x 0 .4 cm oval mass with an indistinct margin in the right breast at 9 o'clock middle depth 4 cm from the nipple. This oval mass is hypoechoic. This correlates as an inc idental finding. Color flow imaging demonstrates that there is no vascularity present. There also is 0.5 cm x 0.4 c m x 0.3 cm oval mass with a circumscribed margin in the right breast at 6 o'clock in the retroareolar region. This oval mass is hypoechoic. This correlates as an inc idental finding. Color flow imaging demonstrates that there is vascularity present. There is 0.7 cm x 0.5 cm x 0 .4 cm oval mass with a circumscribed margin in the left breast at 11 o'clock posterior depth 5 cm from the nipple. This oval mass is hypoechoic. This correlates with mammography findings. Color flow imaging demonstrates that there is no vascularity present. A few tiny benign scattered cysts are seen in the left breast. No abnormalities were seen s onographically in either axilla and the right infraclavicular and internal mammary regions. IMPRESSION: SUSPICIOUS OF MALIGNANCY RECOMMENDATION:The 0.7 cm x 0.6 cm x 0.4 cm oval mass in the right breast at 9 o'clock middle depth is suspicious of malignancy. An ultrasound guided biopsy is recommended. The 0.5 cm x 0.4 cm x 0.3 cm oval mass in the right breast at 6 o'clock in the retroareolar region is probably benign. A follow-up ultrasound in 6 months is recommended. The 0.7 cm x 0.5 cm x 0.4 cm oval mass in the left breast at 11 o'clock posterior depth is probably benign. A follow-up ultrasound in 6 months is recommended. This exam was interpreted at [id number] for MAILE Jeronimo Pe 15. SUMMARY: These findings were discusse d with the patient and her daughter at the time of examination. The staff from the [facility] will contact the patient to schedule t he biopsy. A separate report will be issued foll owing the biopsy. Professional services are pr ovided by the [facility] Division of Diagnostic Imaging. Alysha Cruz M.D. ms/:08/04/2018 09:54:57 Electronics Recycler(s): Cole Hartman letter sent: BI-RADS 4/5 Ultrasound BI-RADS: 4 Suspicious abnormality 2018-08-03 MODESTO Morrow 15:28:00-00:00 COMPLETE ULTRASOUND OF BOTH BREASTS AND AXILLA: 08/03/2018 CLINICAL: R92.2 Inconclusive Mammogram/Abnormal Mammo/ Dense Breasts. COMPARISON:Comparison is mad e to exams dated: 08/03/2018 mammogram and 07/07/2018 mammogram - [facility]. TECHNIQUE: Color flow and re al-time ultrasound of both breasts four quadrants, retroareolar, both axilla and right infraclavicular and internal mammary regions were performed. Vicente scale images of the real-time examination were reviewed. FINDINGS: There is 0.7 cm x 0.6 cm x 0 .4 cm oval mass with an indistinct margin in the right breast at 9 o'clock middle depth 4 cm from the nipple. This oval mass is hypoechoic. This correlates as an inc idental finding. Color flow imaging demonstrates that there is no vascularity present. There also is 0.5 cm x 0.4 c m x 0.3 cm oval mass with a circumscribed margin in the right breast at 6 o'clock in the retroareolar region. This oval mass is hypoechoic. This correlates as an inc idental finding. Color flow imaging demonstrates that there is vascularity present. There is 0.7 cm x 0.5 cm x 0 .4 cm oval mass with a circumscribed margin in the left breast at 11 o'clock posterior depth 5 cm from the nipple. This oval mass is hypoechoic. This correlates with mammography findings. Color flow imaging demonstrates that there is no vascularity present. A few tiny benign scattered cysts are seen in the left breast. No abnormalities were seen s onographically in either axilla and the right infraclavicular and internal mammary regions. IMPRESSION: SUSPICIOUS OF MALIGNANCY RECOMMENDATION:The 0.7 cm x 0.6 cm x 0.4 cm oval mass in the right breast at 9 o'clock middle depth is suspicious of malignancy. An ultrasound guided biopsy is recommended. The 0.5 cm x 0.4 cm x 0.3 cm oval mass in the right breast at 6 o'clock in the retroareolar region is probably benign. A follow-up ultrasound in 6 months is recommended. The 0.7 cm x 0.5 cm x 0.4 cm oval mass in the left breast at 11 o'clock posterior depth is probably benign. A follow-up ultrasound in 6 months is recommended. This exam was interpreted at [id number] for MAILE Jeronimo Pe 15. SUMMARY: These findings were discusse d with the patient and her daughter at the time of examination. The staff from the [facility] will contact the patient to schedule t he biopsy. A separate report will be issued foll owing the biopsy. Professional services are pr ovided by the [facility] Division of Diagnostic Imaging. Alysha Cruz M.D. ms/:08/04/2018 09:54:57 Electronics Recycler(s): Cole Hartman [place] letter sent: BI-RADS 4/5 Ultrasound BI-RADS: 4 Suspicious abnormality 2018-08-03 SOHEILA Morrow 15:28:00-00:00 COMPLETE ULTRASOUND OF BOTH BREASTS AND AXILLA: 08/03/2018 CLINICAL: R92.2 Inconclusive Mammogram/Abnormal Mammo/ Dense Breasts. COMPARISON:Comparison is mad e to exams dated: 08/03/2018 mammogram and 07/07/2018 mammogram - [facility]. TECHNIQUE: Color flow and re al-time ultrasound of both breasts four quadrants, retroareolar, both axilla and right infraclavicular and internal mammary regions were performed. Vicente scale images of the real-time examination were reviewed. FINDINGS: There is 0.7 cm x 0.6 cm x 0 .4 cm oval mass with an indistinct margin in the right breast at 9 o'clock middle depth 4 cm from the nipple. This oval mass is hypoechoic. This correlates as an inc idental finding. Color flow imaging demonstrates that there is no vascularity present. There also is 0.5 cm x 0.4 c m x 0.3 cm oval mass with a circumscribed margin in the right breast at 6 o'clock in the retroareolar region. This oval mass is hypoechoic. This correlates as an inc idental finding. Color flow imaging demonstrates that there is vascularity present. There is 0.7 cm x 0.5 cm x 0 .4 cm oval mass with a circumscribed margin in the left breast at 11 o'clock posterior depth 5 cm from the nipple. This oval mass is hypoechoic. This correlates with mammography findings. Color flow imaging demonstrates that there is no vascularity present. A few tiny benign scattered cysts are seen in the left breast. No abnormalities were seen s onographically in either axilla and the right infraclavicular and internal mammary regions. IMPRESSION: SUSPICIOUS OF MALIGNANCY RECOMMENDATION:The 0.7 cm x 0.6 cm x 0.4 cm oval mass in the right breast at 9 o'clock middle depth is suspicious of malignancy. An ultrasound guided biopsy is recommended. The 0.5 cm x 0.4 cm x 0.3 cm oval mass in the right breast at 6 o'clock in the retroareolar region is probably benign. A follow-up ultrasound in 6 months is recommended. The 0.7 cm x 0.5 cm x 0.4 cm oval mass in the left breast at 11 o'clock posterior depth is probably benign. A follow-up ultrasound in 6 months is recommended. This exam was interpreted at [id number] for MODESTO fournier, SL 15. SUMMARY: These findings were discusse d with the patient and her daughter at the time of examination. The staff from the [facility] will contact the patient to schedule t he biopsy. A separate report will be issued foll owing the biopsy. Professional services are pr ovided by the [facility] [place] [facility] Division of Diagnostic Imaging. Alysha Cruz M.D. ms/:08/04/2018 09:54:57 Electronics Recycler(s): Cole Hartman letter sent: BI-RADS 4/5 Ultrasound BI-RADS: 4 Suspicious abnormality 2018-08-03 MODESTO Morrow 15:28:00-00:00 COMPLETE ULTRASOUND OF BOTH BREASTS AND AXILLA: 08/03/2018 CLINICAL: R92.2 Inconclusive Mammogram/Abnormal Mammo/ Dense Breasts. COMPARISON:Comparison is mad e to exams dated: 08/03/2018 mammogram and 07/07/2018 mammogram - [facility]. TECHNIQUE: Color flow and re al-time ultrasound of both breasts four quadrants, retroareolar, both axilla and right infraclavicular and internal mammary regions were performed. Vicente scale images of the real-time examination were reviewed. FINDINGS: There is 0.7 cm x 0.6 cm x 0 .4 cm oval mass with an indistinct margin in the right breast at 9 o'clock middle depth 4 cm from the nipple. This oval mass is hypoechoic. This correlates as an inc idental finding. Color flow imaging demonstrates that there is no vascularity present. There also is 0.5 cm x 0.4 c m x 0.3 cm oval mass with a circumscribed margin in the right breast at 6 o'clock in the retroareolar region. This oval mass is hypoechoic. This correlates as an inc idental finding. Color flow imaging demonstrates that there is vascularity present. There is 0.7 cm x 0.5 cm x 0 .4 cm oval mass with a circumscribed margin in the left breast at 11 o'clock posterior depth 5 cm from the nipple. This oval mass is hypoechoic. This correlates with mammography findings. Color flow imaging demonstrates that there is no vascularity present. A few tiny benign scattered cysts are seen in the left breast. No abnormalities were seen s onographically in either axilla and the right infraclavicular and internal mammary regions. IMPRESSION: SUSPICIOUS OF MALIGNANCY RECOMMENDATION:The 0.7 cm x 0.6 cm x 0.4 cm oval mass in the right breast at 9 o'clock middle depth is suspicious of malignancy. An ultrasound guided biopsy is recommended. The 0.5 cm x 0.4 cm x 0.3 cm oval mass in the right breast at 6 o'clock in the retroareolar region is probably benign. A follow-up ultrasound in 6 months is recommended. The 0.7 cm x 0.5 cm x 0.4 cm oval mass in the left breast at 11 o'clock posterior depth is probably benign. A follow-up ultrasound in 6 months is recommended. This exam was interpreted at [id number] for MAILE Jeronimo Pe 15. SUMMARY: These findings were discusse d with the patient and her daughter at the time of examination. The staff from the [facility] will contact the patient to schedule t he biopsy. A separate report will be issued foll owing the biopsy. Professional services are pr ovided by the [facility] Division of Diagnostic Imaging. Alysha Cruz M.D. ms/:08/04/2018 09:54:57 Electronics Recycler(s): Cole Hartman letter sent: BI-RADS 4/5 Ultrasound BI-RADS: 4 Suspicious abnormality 2018-08-03 MODESTO Morrow 15:28:00-00:00 COMPLETE ULTRASOUND OF BOTH BREASTS AND AXILLA: 08/03/2018 CLINICAL: R92.2 Inconclusive Mammogram/Abnormal Mammo/ Dense Breasts. COMPARISON:Comparison is mad e to exams dated: 08/03/2018 mammogram and 07/07/2018 mammogram - [facility] [place]. TECHNIQUE: Color flow and re al-time ultrasound of both breasts four quadrants, retroareolar, both axilla and right infraclavicular and internal mammary regions were performed. Vicente scale images of the real-time examination were reviewed. FINDINGS: There is 0.7 cm x 0.6 cm x 0 .4 cm oval mass with an indistinct margin in the right breast at 9 o'clock middle depth 4 cm from the nipple. This oval mass is hypoechoic. This correlates as an inc idental finding. Color flow imaging demonstrates that there is no vascularity present. There also is 0.5 cm x 0.4 c m x 0.3 cm oval mass with a circumscribed margin in the right breast at 6 o'clock in the retroareolar region. This oval mass is hypoechoic. This correlates as an inc idental finding. Color flow imaging demonstrates that there is vascularity present. There is 0.7 cm x 0.5 cm x 0 .4 cm oval mass with a circumscribed margin in the left breast at 11 o'clock posterior depth 5 cm from the nipple. This oval mass is hypoechoic. This correlates with mammography findings. Color flow imaging demonstrates that there is no vascularity present. A few tiny benign scattered cysts are seen in the left breast. No abnormalities were seen s onographically in either axilla and the right infraclavicular and internal mammary regions. IMPRESSION: SUSPICIOUS OF MALIGNANCY RECOMMENDATION:The 0.7 cm x 0.6 cm x 0.4 cm oval mass in the right breast at 9 o'clock middle depth is suspicious of malignancy. An ultrasound guided biopsy is recommended. The 0.5 cm x 0.4 cm x 0.3 cm oval mass in the right breast at 6 o'clock in the retroareolar region is probably benign. A follow-up ultrasound in 6 months is recommended. The 0.7 cm x 0.5 cm x 0.4 cm oval mass in the left breast at 11 o'clock posterior depth is probably benign. A follow-up ultrasound in 6 months is recommended. This exam was interpreted at [id number] for MAILE Jeronimo Pe 15. SUMMARY: These findings were discusse d with the patient and her daughter at the time of examination. The staff from the [facility] will contact the patient to schedule t he biopsy. A separate report will be issued foll owing the biopsy. Professional services are pr ovided by the [facility] Division of Diagnostic Imaging. Alysha Cruz M.D. ms/:08/04/2018 09:54:57 Electronics Recycler(s): [place] letter sent: BI-RADS 4/5 Ultrasound BI-RADS: 4 [facility]picious [facility]31:00-00:00 UNILATERAL LEFT DIGITAL DIAGNOSTIC MAMMOGRAM 3D/ 2D WITH CAD: 08/03/2018 CLINICAL: /N63.20 Unspecified Lump In The Left B reast, Unspecified Quadrant. Current study was evaluated with a [employer] d Detection (CAD) system. COMPARISON:Comparison is mad e to exam dated: 07/07/2018 [facility] - [facility]. TECHNIQUE: Digital Breast To mosynthesis was performed and utilized for Interpretation. Current study was also evaluated with a Computer Aided Detection (CAD) system. FINDINGS: The tissue of left breast is heterogeneously dense, which could obscure detection of small masses. There are benign appearing calcifications in the left breast. There is an 1 cm oval equal density mass with a circumscribed margin in the left breast at 11 o'clock middle depth 6 cm from the nipple. No other significant masses or calcifications ar e seen in the breast. IMPRESSION: INCOMPLETE: NEEDS ADDITIONAL IMAGING EVALUATION RECOMMENDATION:The 1 cm oval equal density mass in the left breast is indeterminate. An ultrasound is recommended. This exam was interpreted at [id number] for MODESTO fournier, SL 15. Professional services are pr ovided by the [facility] Division of Diagnostic Imaging. Alysha Cruz M.D. ms/:08/04/2018 09:49:20 Electronics Recycler(s): Henny Negrete Mammogram BI-RADS: 0 Indeterminate 2018-08-03 SOHEILA Morrow 14:31:00-00:00 UNILATERAL LEFT DIGITAL DIAGNOSTIC MAMMOGRAM 3D/ 2D WITH CAD: 08/03/2018 CLINICAL: /N63.20 Unspecified Lump In The Left B reast, Unspecified Quadrant. Current study was evaluated with a [employer] Detection (CAD) system. COMPARISON:Comparison is mad e to exam dated: 07/07/2018 mammogram - [facility]. TECHNIQUE: Digital Breast To mosynthesis was performed and utilized for Interpretation. Current study was also evaluated with a Computer Aided Detection (CAD) system. FINDINGS: The tissue of left breast is heterogeneously dense, which could obscure detection of small masses. There are benign appearing calcifications in the left breast. There is an 1 cm oval equal density mass with a circumscribed margin in the left breast at 11 o'clock middle depth 6 cm from the nipple. No other significant masses or calcifications ar e seen in the breast. IMPRESSION: INCOMPLETE: NEEDS ADDITIONAL IMAGING EVALUATION RECOMMENDATION:The 1 cm oval equal density mass in the left breast is indeterminate. An ultrasound is recommended. This exam was interpreted at [id number] for MAILE Jeronimo Pe 15. Professional services are pr ovided by the [facility] Division of Diagnostic Imaging. Alysha Cruz M.D. ms/:08/04/2018 09:49:20 Electronics Recycler(s): Henny Negrete [facility] Mammogram BI-RADS: 0 Indeterminate 2018-08-03 SOHEILA [place] 14:31:00-00:00 UNILATERAL LEFT DIGITAL DIAGNOSTIC MAMMOGRAM 3D/ 2D WITH CAD: 08/03/2018 CLINICAL: /N63.20 Unspecified Lump In The Left B reast, Unspecified Quadrant. Current study was evaluated with a [employer] Detection (CAD) system. COMPARISON:Comparison is mad e to exam dated: 07/07/2018 mammogram - [facility]. TECHNIQUE: Digital Breast To mosynthesis was performed and utilized for Interpretation. Current study was also evaluated with a Computer Aided Detection (CAD) system. FINDINGS: The tissue of left breast is heterogeneously dense, which could obscure detection of small masses. There are benign appearing calcifications in the left breast. There is an 1 cm oval equal density mass with a circumscribed margin in the left breast at 11 o'clock middle depth 6 cm from the nipple. No other significant masses or calcifications ar e seen in the breast. IMPRESSION: INCOMPLETE: NEEDS ADDITIONAL IMAGING EVALUATION RECOMMENDATION:The 1 cm oval equal density mass in the left breast is indeterminate. An ultrasound is recommended. This exam was interpreted at [id number] for MAILE Jeronimo Pe 15. Professional services are pr ovided by the [facility] Division of Diagnostic Imaging. Alysha Cruz M.D. ms/:08/04/2018 09:49:20 Electronics Recycler(s): Henny Negrete [place] Mammogram BI-RADS: 0 Indeterminate 2018-08-03 [facility] 14:31:00-00:00 UNILATERAL LEFT DIGITAL DIAGNOSTIC MAMMOGRAM 3D/ 2D WITH CAD: 08/03/2018 CLINICAL: /N63.20 Unspecified Lump In The Left B reast, Unspecified Quadrant. Current study was evaluated with a [employer] Detection (CAD) system. COMPARISON:Comparison is mad e to exam dated: 07/07/2018 mammogram - [facility]. TECHNIQUE: Digital Breast To mosynthesis was performed and utilized for Interpretation. Current study was also evaluated with a Computer Aided Detection (CAD) system. FINDINGS: The tissue of left breast is heterogeneously dense, which could obscure detection of small masses. There are benign appearing calcifications in the left breast. There is an 1 cm oval equal density mass with a circumscribed margin in the left breast at 11 o'clock middle depth 6 cm from the nipple. No other significant masses or calcifications ar e seen in the breast. IMPRESSION: INCOMPLETE: NEEDS ADDITIONAL IMAGING EVALUATION RECOMMENDATION:The 1 cm oval equal density mass in the left breast is indeterminate. An ultrasound is recommended. This exam was interpreted at [id number] for MODESTO fournier, SL 15. Professional services are pr ovided by the [facility] Division of Diagnostic Imaging. Alysha Cruz M.D. ms/:08/04/2018 09:49:20 Electronics Recycler(s): Henny Negrete [place] Mammogram BI-RADS: 0 Indeterminate 2018-08-03 [facility] 14:31:00-00:00 UNILATERAL LEFT DIGITAL DIAGNOSTIC MAMMOGRAM 3D/ 2D WITH CAD: 08/03/2018 CLINICAL: /N63.20 Unspecified Lump In The Left B reast, Unspecified Quadrant. Current study was evaluated with a [employer] Detection (CAD) system. COMPARISON:Comparison is mad e to exam dated: 07/07/2018 mammogram - [facility]. TECHNIQUE: Digital Breast To mosynthesis was performed and utilized for Interpretation. Current study was also evaluated with a Computer Aided Detection (CAD) system. FINDINGS: The tissue of left breast is heterogeneously dense, which could obscure detection of small masses. There are benign appearing calcifications in the left breast. There is an 1 cm oval equal density mass with a circumscribed margin in the left breast at 11 o'clock middle depth 6 cm from the nipple. No other significant masses or calcifications ar e seen in the breast. IMPRESSION: INCOMPLETE: NEEDS ADDITIONAL IMAGING EVALUATION RECOMMENDATION:The 1 cm oval equal density mass in the left breast is indeterminate. An ultrasound is recommended. This exam was interpreted at [id number] for Mark fournier, 15. Professional services are pr ovided by the [facility] Division of Diagnostic Imaging. Alysha Cruz M.D. ms/:08/04/2018 09:49:20 Electronics Recycler(s): Henny Negrete [facility] Mammogram BI-RADS: 0 Indeterminate 2018-08-03 SOHEILA Morrow 14:31:00-00:00 UNILATERAL LEFT DIGITAL DIAGNOSTIC MAMMOGRAM 3D/ 2D WITH CAD: 08/03/2018 CLINICAL: /N63.20 Unspecified Lump In The Left B reast, Unspecified Quadrant. Current study was evaluated with a [employer] Detection (CAD) system. COMPARISON:Comparison is mad e to exam dated: 07/07/2018 mammogram - [facility]. TECHNIQUE: Digital Breast To mosynthesis was performed and utilized for Interpretation. Current study was also evaluated with a Computer Aided Detection (CAD) system. FINDINGS: The tissue of left breast is heterogeneously dense, which could obscure detection of small masses. There are benign appearing calcifications in the left breast. There is an 1 cm oval equal density mass with a circumscribed margin in the left breast at 11 o'clock middle depth 6 cm from the nipple. No other significant masses or calcifications ar e seen in the breast. IMPRESSION: INCOMPLETE: NEEDS ADDITIONAL IMAGING EVALUATION RECOMMENDATION:The 1 cm oval equal density mass in the left breast is indeterminate. An ultrasound is recommended. This exam was interpreted at [id number] for Mark fournier, 15. Professional services are pr ovided by the [facility] Division of Diagnostic Imaging. Alysha Cruz M.D. ms/:08/04/2018 09:49:20 Electronics Recycler(s): Henny Negrete [facility] Mammogram BI-RADS: 0 Indeterminate 2018-08-03 [facility] 14:31:00-00:00 UNILATERAL LEFT DIGITAL DIAGNOSTIC MAMMOGRAM 3D/ 2D WITH CAD: 08/03/2018 CLINICAL: /N63.20 Unspecified Lump In The Left B reast, Unspecified Quadrant. Current study was evaluated with a [employer] Detection (CAD) system. COMPARISON:Comparison is mad e to exam dated: 07/07/2018 mammogram - [facility]. TECHNIQUE: Digital Breast To mosynthesis was performed and utilized for Interpretation. Current study was also evaluated with a Computer Aided Detection (CAD) system. FINDINGS: The tissue of left breast is heterogeneously dense, which could obscure detection of small masses. There are benign appearing calcifications in the left breast. There is an 1 cm oval equal density mass with a circumscribed margin in the left breast at 11 o'clock middle depth 6 cm from the nipple. No other significant masses or calcifications ar e seen in the breast. IMPRESSION: INCOMPLETE: NEEDS ADDITIONAL IMAGING EVALUATION RECOMMENDATION:The 1 cm oval equal density mass in the left breast is indeterminate. An ultrasound is recommended. This exam was interpreted at [id number] for MODESTO fournier, SL 15. Professional services are pr ovided by the [facility]. Alysha Cruz M.D. ms/:08/04/2018 09:49:20 Electronics Recycler(s): Henny Negrete [facility] Mammogram BI-RADS: 0 Indeterminate 2018-08-03 [facility] 14:31:00-00:00 UNILATERAL LEFT DIGITAL DIAGNOSTIC MAMMOGRAM 3D/ 2D WITH CAD: 08/03/2018 CLINICAL: /N63.20 Unspecified Lump In The Left B reast, Unspecified Quadrant. Current study was evaluated with a [employer] Detection (CAD) system. COMPARISON:Comparison is mad e to exam dated: 07/07/2018 mammogram - [facility]. TECHNIQUE: Digital Breast To mosynthesis was performed and utilized for Interpretation. Current study was also evaluated with a Computer Aided Detection (CAD) system. FINDINGS: The tissue of left breast is heterogeneously dense, which could obscure detection of small masses. There are benign appearing calcifications in the left breast. There is an 1 cm oval equal density mass with a circumscribed margin in the left breast at 11 o'clock middle depth 6 cm from the nipple. No other significant masses or calcifications ar e seen in the breast. IMPRESSION: INCOMPLETE: NEEDS ADDITIONAL IMAGING EVALUATION RECOMMENDATION:The 1 cm oval equal density mass in the left breast is indeterminate. An ultrasound is recommended. This exam was interpreted at [id number] for MAILE Jeronimo Pe. Professional services are pr ovided by the [facility] Division of Diagnostic Imaging. Alysha Cruz M.D. ms/:08/04/2018 09:49:20 Electronics Recycler(s): Henny Negrete Mammogram BI-RADS: 0 Indeterminate 2018-08-03 SOHEILA [facility]row 14:31:00-00:00 UNILATERAL LEFT DIGITAL DIAGNOSTIC MAMMOGRAM 3D/ 2D WITH CAD: 08/03/2018 CLINICAL: /N63.20 Unspecified Lump In The Left B reast, Unspecified Quadrant. Current study was evaluated with a [employer] Detection (CAD) system. COMPARISON:Comparison is mad e to exam dated: 07/07/2018 mammogram - [facility]. TECHNIQUE: Digital Breast To mosynthesis was performed and utilized for Interpretation. Current study was also evaluated with a Computer Aided Detection (CAD) system. FINDINGS: The tissue of left breast is heterogeneously dense, which could obscure detection of small masses. There are benign appearing calcifications in the left breast. There is an 1 cm oval equal density mass with a circumscribed margin in the left breast at 11 o'clock middle depth 6 cm from the nipple. No other significant masses or calcifications ar e seen in the breast. IMPRESSION: INCOMPLETE: NEEDS ADDITIONAL IMAGING EVALUATION RECOMMENDATION:The 1 cm oval equal density mass in the left breast is indeterminate. An ultrasound is recommended. This exam was interpreted at [id number] for MAILE Jeronimo Pe. Professional services are pr ovided by the [facility] Division of Diagnostic Imaging. Alysha Cruz M.D. ms/:08/04/2018 09:49:20 Electronics Recycler(s): Henny Negrete Mammogram BI-RADS: 0 Indeterminate 2018-08-03 [facility] 14:31:00-00:00 UNILATERAL LEFT DIGITAL DIAGNOSTIC MAMMOGRAM 3D/ 2D WITH CAD: 08/03/2018 CLINICAL: /N63.20 Unspecified Lump In The Left B reast, Unspecified Quadrant. Current study was evaluated with a [employer] d Detection (CAD) system. COMPARISON:Comparison is mad e to exam dated: 07/07/2018 [facility] - [facility]. TECHNIQUE: Digital Breast To mosynthesis was performed and utilized for Interpretation. Current study was also evaluated with a Computer Aided Detection (CAD) system. FINDINGS: The tissue of left breast is heterogeneously dense, which could obscure detection of small masses. There are benign appearing calcifications in the left breast. There is an 1 cm oval equal density mass with a circumscribed margin in the left breast at 11 o'clock middle depth 6 cm from the nipple. No other significant masses or calcifications ar e seen in the breast. IMPRESSION: INCOMPLETE: NEEDS ADDITIONAL IMAGING EVALUATION RECOMMENDATION:The 1 cm oval equal density mass in the left breast is indeterminate. An ultrasound is recommended. This exam was interpreted at [id number] for Mark fournier, SL 15. Professional services are pr ovided by the [facility] Division of Diagnostic Imaging. Alysha Cruz M.D. ms/:08/04/2018 09:49:20 Electronics Recycler(s): Henny Negrete [facility] Mammogram BI-RADS: 0 Indeterminate 2018-08-03 [facility] 14:31:00-00:00 UNILATERAL LEFT DIGITAL DIAGNOSTIC MAMMOGRAM 3D/ 2D WITH CAD: 08/03/2018 CLINICAL: /N63.20 Unspecified Lump In The Left B reast, Unspecified Quadrant. Current study was evaluated with a [employer] Detection (CAD) system. COMPARISON:Comparison is mad e to exam dated: 07/07/2018 [facility] - [facility]. TECHNIQUE: Digital Breast To mosynthesis was performed and utilized for Interpretation. Current study was also evaluated with a Computer Aided Detection (CAD) system. FINDINGS: The tissue of left breast is heterogeneously dense, which could obscure detection of small masses. There are benign appearing calcifications in the left breast. There is an 1 cm oval equal density mass with a circumscribed margin in the left breast at 11 o'clock middle depth 6 cm from the nipple. No other significant masses or calcifications ar e seen in the breast. IMPRESSION: INCOMPLETE: NEEDS ADDITIONAL IMAGING EVALUATION RECOMMENDATION:The 1 cm oval equal density mass in the left breast is indeterminate. An ultrasound is recommended. This exam was interpreted at [id number] for MAILE Felix 15. Professional services are pr ovided by the [facility] Division of Diagnostic Imaging. Alysha Cruz M.D. ms/:08/04/2018 09:49:20 Electronics Recycler(s): Henny Negrete [facility] Mammogram BI-RADS: 0 Indeterminate 2018-08-03 [facility] [place] 14:31:00-00:00 UNILATERAL LEFT DIGITAL DIAGNOSTIC MAMMOGRAM 3D/ 2D WITH CAD: 08/03/2018 CLINICAL: /N63.20 Unspecified Lump In The Left B reast, Unspecified Quadrant. Current study was evaluated with a [employer] Detection (CAD) system. COMPARISON:Comparison is mad e to exam dated: 07/07/2018 mammogram - [facility]. TECHNIQUE: Digital Breast To mosynthesis was performed and utilized for Interpretation. Current study was also evaluated with a Computer Aided Detection (CAD) system. FINDINGS: The tissue of left breast is heterogeneously dense, which could obscure detection of small masses. There are benign appearing calcifications in the left breast. There is an 1 cm oval equal density mass with a circumscribed margin in the left breast at 11 o'clock middle depth 6 cm from the nipple. No other significant masses or calcifications ar e seen in the breast. IMPRESSION: INCOMPLETE: NEEDS ADDITIONAL IMAGING EVALUATION RECOMMENDATION:The 1 cm oval equal density mass in the left breast is indeterminate. An ultrasound is recommended. This exam was interpreted at [id number] for MAILE Jeronimo Pe 15. Professional services are pr ovided by the [facility] Division of Diagnostic Imaging. Alysha Cruz M.D. ms/:08/04/2018 09:49:20 Electronics Recycler(s): [facility] [place] Mamm[facility] BI-RADS: 0 Indeterminate 2018-08-03 [facility] [place] 14:31:00-00:00 UNILATERAL LEFT DIGITAL DIAGNOSTIC MAMMOGRAM 3D/ 2D WITH CAD: 08/03/2018 CLINICAL: /N63.20 Unspecified Lump In The Left B reast, Unspecified Quadrant. Current study was evaluated with a [employer] Detection (CAD) system. COMPARISON:Comparison is mad e to exam dated: 07/07/2018 mammogram - [facility]. TECHNIQUE: Digital Breast To mosynthesis was performed and utilized for Interpretation. Current study was also evaluated with a Computer Aided Detection (CAD) system. FINDINGS: The tissue of left breast is heterogeneously dense, which could obscure detection of small masses. There are benign appearing calcifications in the left breast. There is an 1 cm oval equal density mass with a circumscribed margin in the left breast at 11 o'clock middle depth 6 cm from the nipple. No other significant masses or calcifications ar e seen in the breast. IMPRESSION: INCOMPLETE: NEEDS ADDITIONAL IMAGING EVALUATION RECOMMENDATION:The 1 cm oval equal density mass in the left breast is indeterminate. An ultrasound is recommended. This exam was interpreted at [id number] for MAILE Jeronimo Pe 15. Professional services are pr ovided by the [facility] Division of Diagnostic Imaging. Alysha Cruz M.D. ms/:08/04/2018 09:49:20 Electronics Recycler(s): Henny Negrete [facility] Mammogram BI-RADS: 0 Indeterminate 2018-08-03 [facility] 14:31:00-00:00 UNILATERAL LEFT DIGITAL DIAGNOSTIC MAMMOGRAM 3D/ 2D WITH CAD: 08/03/2018 CLINICAL: /N63.20 Unspecified Lump In The Left B reast, Unspecified Quadrant. Current study was evaluated with a [employer] Detection (CAD) system. COMPARISON:Comparison is mad e to exam dated: 07/07/2018 mammogram - [facility]. TECHNIQUE: Digital Breast To mosynthesis was performed and utilized for Interpretation. Current study was also evaluated with a Computer Aided Detection (CAD) system. FINDINGS: The tissue of left breast is heterogeneously dense, which could obscure detection of small masses. There are benign appearing calcifications in the left breast. There is an 1 cm oval equal density mass with a circumscribed margin in the left breast at 11 o'clock middle depth 6 cm from the nipple. No other significant masses or calcifications ar e seen in the breast. IMPRESSION: INCOMPLETE: NEEDS ADDITIONAL IMAGING EVALUATION RECOMMENDATION:The 1 cm oval equal density mass in the left breast is indeterminate. An ultrasound is recommended. This exam was interpreted at [id number] for MAILE Felix 15. Professional services are pr ovided by the [facility] Division of Diagnostic Imaging. Alysha Cruz M.D. ms/:08/04/2018 09:49:20 Electronics Recycler(s): Henny Negrete [place] Mammogram BI-RADS: 0 Indeterminate 2018-08-03 [facility] 14:31:00-00:00 UNILATERAL LEFT DIGITAL DIAGNOSTIC MAMMOGRAM 3D/ 2D WITH CAD: 08/03/2018 CLINICAL: /N63.20 Unspecified Lump In The Left B reast, Unspecified Quadrant. Current study was evaluated with a [employer] Detection (CAD) system. COMPARISON:Comparison is mad e to exam dated: 07/07/2018 mammogram - [facility]. TECHNIQUE: Digital Breast To mosynthesis was performed and utilized for Interpretation. Current study was also evaluated with a Computer Aided Detection (CAD) system. FINDINGS: The tissue of left breast is heterogeneously dense, which could obscure detection of small masses. There are benign appearing calcifications in the left breast. There is an 1 cm oval equal density mass with a circumscribed margin in the left breast at 11 o'clock middle depth 6 cm from the nipple. No other significant masses or calcifications ar e seen in the breast. IMPRESSION: INCOMPLETE: NEEDS ADDITIONAL IMAGING EVALUATION RECOMMENDATION:The 1 cm oval equal density mass in the left breast is indeterminate. An ultrasound is recommended. This exam was interpreted at [id number] for MAILE Felix 15. Professional services are pr ovided by the [facility] Division of Diagnostic Imaging. Alysha Cruz M.D. ms/:08/04/2018 09:49:20 Electronics Recycler(s): Henny Negrete [place] Mammogram BI-RADS: 0 Indeterminate 2018-08-03 [facility] 14:31:00-00:00 UNILATERAL LEFT DIGITAL DIAGNOSTIC MAMMOGRAM 3D/ 2D WITH CAD: 08/03/2018 CLINICAL: /N63.20 Unspecified Lump In The Left B reast, Unspecified Quadrant. Current study was evaluated with a [employer] Detection (CAD) system. COMPARISON:Comparison is mad e to exam dated: 07/07/2018 mammogram - [facility]. TECHNIQUE: Digital Breast To mosynthesis was performed and utilized for Interpretation. Current study was also evaluated with a Computer Aided Detection (CAD) system. FINDINGS: The tissue of left breast is heterogeneously dense, which could obscure detection of small masses. There are benign appearing calcifications in the left breast. There is an 1 cm oval equal density mass with a circumscribed margin in the left breast at 11 o'clock middle depth 6 cm from the nipple. No other significant masses or calcifications ar e seen in the breast. IMPRESSION: INCOMPLETE: NEEDS ADDITIONAL IMAGING EVALUATION RECOMMENDATION:The 1 cm oval equal density mass in the left breast is indeterminate. An ultrasound is recommended. This exam was interpreted at [id number] for MODESTO fournier, SL 15. Professional services are pr ovided by the [facility] Division of Diagnostic Imaging. Alysha Cruz M.D. ms/:08/04/2018 09:49:20 Electronics Recycler(s): Henny Negrete [facility] Mammogram BI-RADS: 0 Indeterminate 2018-08-03 [facility] 14:31:00-00:00 UNILATERAL LEFT DIGITAL DIAGNOSTIC MAMMOGRAM 3D/ 2D WITH CAD: 08/03/2018 CLINICAL: /N63.20 Unspecified Lump In The Left B reast, Unspecified Quadrant. Current study was evaluated with a [employer] Detection (CAD) system. COMPARISON:Comparison is mad e to exam dated: 07/07/2018 mammogram - [facility]. TECHNIQUE: Digital Breast To mosynthesis was performed and utilized for Interpretation. Current study was also evaluated with a Computer Aided Detection (CAD) system. FINDINGS: The tissue of left breast is heterogeneously dense, which could obscure detection of small masses. There are benign appearing calcifications in the left breast. There is an 1 cm oval equal density mass with a circumscribed margin in the left breast at 11 o'clock middle depth 6 cm from the nipple. No other significant masses or calcifications ar e seen in the breast. IMPRESSION: INCOMPLETE: NEEDS ADDITIONAL IMAGING EVALUATION RECOMMENDATION:The 1 cm oval equal density mass in the left breast is indeterminate. An ultrasound is recommended. This exam was interpreted at [id number] for MAILE Jeronimo Pe 15. Professional services are pr ovided by the [facility] Division of Diagnostic Imaging. Alysha Cruz M.D. ms/:08/04/2018 09:49:20 Electronics Recycler(s): Henny Negrete Mammogram BI-RADS: 0 Indeterminate 2018-08-03 [facility] 14:31:00-00:00 UNILATERAL LEFT DIGITAL DIAGNOSTIC MAMMOGRAM 3D/ 2D WITH CAD: 08/03/2018 CLINICAL: /N63.20 Unspecified Lump In The Left B reast, Unspecified Quadrant. Current study was evaluated with a [employer] Detection (CAD) system. COMPARISON:Comparison is mad e to exam dated: 07/07/2018 mammogram - [facility]. TECHNIQUE: Digital Breast To mosynthesis was performed and utilized for Interpretation. Current study was also evaluated with a Computer Aided Detection (CAD) system. FINDINGS: The tissue of left breast is heterogeneously dense, which could obscure detection of small masses. There are benign appearing calcifications in the left breast. There is an 1 cm oval equal density mass with a circumscribed margin in the left breast at 11 o'clock middle depth 6 cm from the nipple. No other significant masses or calcifications ar e seen in the breast. IMPRESSION: INCOMPLETE: NEEDS ADDITIONAL IMAGING EVALUATION RECOMMENDATION:The 1 cm oval equal density mass in the left breast is indeterminate. An ultrasound is recommended. This exam was interpreted at [id number] for MAILE Jeronimo Pe 15. Professional services are pr ovided by the [facility] Division of Diagnostic Imaging. Alysha Cruz M.D. ms/:08/04/2018 09:49:20 Electronics Recycler(s): Henny Negrete Mammogram BI-RADS: 0 Indeterminate 2018-07-07 Patient Name: HARLEEN [facility] 11:18:00-00:00 : 1955; Age: 63 years y/o Female MR: [id number] Study: Thyroid US 07/07/2018 11:18 CDT Ordering Physician: Griselda Tolbert MD Clinical Indication: thyromegaly - thyromegaly; Comparison: None TECHNIQUE: Sonographic evaluation of the thyroid gland is p erformed FINDINGS: The right thyroid lobe measu res 4.9 x 1.8 x 2.7 cm. The left thyroid lobe measures 4.3 x 1.6 x 1.6 cm. The thyroid isthmus measures 3 mm. There is normal bilateral th yroid gland contour and morphology. There is mildly heterogeneous thyroid parenchymal echotexture. A mixed cystic and solid isoechoic well-circumscribed nodule at the mid to lower right thyroid lobe kal suring 2.3 x 1.6 x 1.6 cm is noted with a single coarse calcification. Hypoechoic nodule at the mid left thyroid lobe measuring 1.4 x 2.1 x 1.4 cm with curvilinear ventral ri m calcification is noted; th e posterior acoustic shadowing from the calcification limits detailed evaluation of the internal echotexture of the nodule. There is no adjacent jugular chain lymphadenopat hy. IMPRESSION: 1. NODULE #: 1 - Size: 1.4 x 2.1 x 1.4 cm - Location: Mid left thyroid lobe - Composition: solid or almost completely solid: 2 points - Echogenicity: hypoechoic: 2 points - Shape: wider than tall: 0 points - Margin: smooth: 0 points - Echogenic foci?: peripheral/rim calcifications : 2 points TI-RADS Category: TR4: 4-6 p oints. Moderately suspicious. If >= 1cm follow up at 1,2,3 and 5 years. If >=1.5cm FNA. By TI-RADS criteria, this nodule should be biopsied. 2. NODULE #: 2 - Size: 2.3 x 1.6 x 1.6 cm - Location: Mid to lower right thyroid lobe - Composition: mixed cystic/solid: 1 point - Echogenicity: hyper or isoechoic: 1 point - Shape: wider than tall: 0 points - Margin: smooth: 0 points - Echogenic foci?: macrocalcifications: 1 point TI-RADS Category: TR3: 3 poi nts. Mildly suspicious. If >= 1.5 cm follow up at 1,3 and 5 years. If >=2.5 cm FNA. By TI-RADS criteria, this nodule should be followed per schedule above. SL: [id number] 2018-07-07 Patient Name: HARLEEN [facility] 11:18:00-00:00 : 1955; Age: 63 years y/o Female MR: [id number] Study: Thyroid US 07/07/2018 11:18 CDT Ordering Physician: Griselda Tolbert MD Clinical Indication: thyromegaly - thyromegaly; Comparison: None TECHNIQUE: Sonographic evaluation of the thyroid gland is p erformed FINDINGS: The right thyroid lobe measu res 4.9 x 1.8 x 2.7 cm. The left thyroid lobe measures 4.3 x 1.6 x 1.6 cm. The thyroid isthmus measures 3 mm. There is normal bilateral th yroid gland contour and morphology. There is mildly heterogeneous thyroid parenchymal echotexture. A mixed cystic and solid isoechoic well-circumscribed nodule at the mid to lower right thyroid lobe kal suring 2.3 x 1.6 x 1.6 cm is noted with a single coarse calcification. Hypoechoic nodule at the mid left thyroid lobe measuring 1.4 x 2.1 x 1.4 cm with curvilinear ventral ri m calcification is noted; th e posterior acoustic shadowing from the calcification limits detailed evaluation of the internal echotexture of the nodule. There is no adjacent jugular chain lymphadenopat hy. IMPRESSION: 1. NODULE #: 1 - Size: 1.4 x 2.1 x 1.4 cm - Location: Mid left thyroid lobe - Composition: solid or almost completely solid: 2 points - Echogenicity: hypoechoic: 2 points - Shape: wider than tall: 0 points - Margin: smooth: 0 points - Echogenic foci?: peripheral/rim calcifications : 2 points TI-RADS Category: TR4: 4-6 p oints. Moderately suspicious. If >= 1cm follow up at 1,2,3 and 5 years. If >=1.5cm FNA. By TI-RADS criteria, this nodule should be biopsied. 2. NODULE #: 2 - Size: 2.3 x 1.6 x 1.6 cm - Location: Mid to lower right thyroid lobe - Composition: mixed cystic/solid: 1 point - Echogenicity: hyper or isoechoic: 1 point - Shape: wider than tall: 0 points - Margin: smooth: 0 points - Echogenic foci?: macrocalcifications: 1 point TI-RADS Category: TR3: 3 poi nts. Mildly suspicious. If >= 1.5 cm follow up at 1,3 and 5 years. If >=2.5 cm FNA. By TI-RADS criteria, this nodule should be followed per schedule above. SL: [id number] 2018-07-07 Patient Name: HARLEEN [facility]cialand 11:18:00-00:00 : 1955; Age: 63 years y/o Female MR: [id number] Study: Thyroid US 07/07/2018 11:18 CDT Ordering Physician: Griselda Tolbert MD Clinical Indication: thyromegaly - thyromegaly; Comparison: None TECHNIQUE: Sonographic evaluation of the thyroid gland is p erformed FINDINGS: The right thyroid lobe measu res 4.9 x 1.8 x 2.7 cm. The left thyroid lobe measures 4.3 x 1.6 x 1.6 cm. The thyroid isthmus measures 3 mm. There is normal bilateral th yroid gland contour and morphology. There is mildly heterogeneous thyroid parenchymal echotexture. A mixed cystic and solid isoechoic well-circumscribed nodule at the mid to lower right thyroid lobe kal suring 2.3 x 1.6 x 1.6 cm is noted with a single coarse calcification. Hypoechoic nodule at the mid left thyroid lobe measuring 1.4 x 2.1 x 1.4 cm with curvilinear ventral ri m calcification is noted; th e posterior acoustic shadowing from the calcification limits detailed evaluation of the internal echotexture of the nodule. There is no adjacent jugular chain lymphadenopat hy. IMPRESSION: 1. NODULE #: 1 - Size: 1.4 x 2.1 x 1.4 cm - Location: Mid left thyroid lobe - Composition: solid or almost completely solid: 2 points - Echogenicity: hypoechoic: 2 points - Shape: wider than tall: 0 points - Margin: smooth: 0 points - Echogenic foci?: peripheral/rim calcifications : 2 points TI-RADS Category: TR4: 4-6 p oints. Moderately suspicious. If >= 1cm follow up at 1,2,3 and 5 years. If >=1.5cm FNA. By TI-RADS criteria, this nodule should be biopsied. 2. NODULE #: 2 - Size: 2.3 x 1.6 x 1.6 cm - Location: Mid to lower right thyroid lobe - Composition: mixed cystic/solid: 1 point - Echogenicity: hyper or isoechoic: 1 point - Shape: wider than tall: 0 points - Margin: smooth: 0 points - Echogenic foci?: macrocalcifications: 1 point TI-RADS Category: TR3: 3 poi nts. Mildly suspicious. If >= 1.5 cm follow up at 1,3 and 5 years. If >=2.5 cm FNA. By TI-RADS criteria, this nodule should be followed per schedule above. SL: [id number] 2018-07-07 Patient Name: HARLEEN ALICEA [facility] [place] 11:18:00-00:00 : 1955; Age: 63 years y/o Female MR: [id number] Study: Thyroid US 07/07/2018 11:18 CDT Ordering Physician: Griselda Tolbert MD Clinical Indication: thyromegaly - thyromegaly; Comparison: None TECHNIQUE: Sonographic evaluation of the thyroid gland is p erformed FINDINGS: The right thyroid lobe measu res 4.9 x 1.8 x 2.7 cm. The left thyroid lobe measures 4.3 x 1.6 x 1.6 cm. The thyroid isthmus measures 3 mm. There is normal bilateral th yroid gland contour and morphology. There is mildly heterogeneous thyroid parenchymal echotexture. A mixed cystic and solid isoechoic well-circumscribed nodule at the mid to lower right thyroid lobe kal suring 2.3 x 1.6 x 1.6 cm is noted with a single coarse calcification. Hypoechoic nodule at the mid left thyroid lobe measuring 1.4 x 2.1 x 1.4 cm with curvilinear ventral ri m calcification is noted; th e posterior acoustic shadowing from the calcification limits detailed evaluation of the internal echotexture of the nodule. There is no adjacent jugular chain lymphadenopat hy. IMPRESSION: 1. NODULE #: 1 - Size: 1.4 x 2.1 x 1.4 cm - Location: Mid left thyroid lobe - Composition: solid or almost completely solid: 2 points - Echogenicity: hypoechoic: 2 points - Shape: wider than tall: 0 points - Margin: smooth: 0 points - Echogenic foci?: peripheral/rim calcifications : 2 points TI-RADS Category: TR4: 4-6 p oints. Moderately suspicious. If >= 1cm follow up at 1,2,3 and 5 years. If >=1.5cm FNA. By TI-RADS criteria, this nodule should be biopsied. 2. NODULE #: 2 - Size: 2.3 x 1.6 x 1.6 cm - Location: Mid to lower right thyroid lobe - Composition: mixed cystic/solid: 1 point - Echogenicity: hyper or isoechoic: 1 point - Shape: wider than tall: 0 points - Margin: smooth: 0 points - Echogenic foci?: macrocalcifications: 1 point TI-RADS Category: TR3: 3 poi nts. Mildly suspicious. If >= 1.5 cm follow up at 1,3 and 5 years. If >=2.5 cm FNA. By TI-RADS criteria, this nodule should be followed per schedule above. SL: [id number] 2018-07-07 Patient Name: HARLEEN ALICEA SO[facility] [place] 11:18:00-00:00 : 1955; Age: 63 years y/o Female MR: [id number] Study: Thyroid US 07/07/2018 11:18 CDT Ordering Physician: Griselda Tolbert MD Clinical Indication: thyromegaly - thyromegaly; Comparison: None TECHNIQUE: Sonographic evaluation of the thyroid gland is p erformed FINDINGS: The right thyroid lobe measu res 4.9 x 1.8 x 2.7 cm. The left thyroid lobe measures 4.3 x 1.6 x 1.6 cm. The thyroid isthmus measures 3 mm. There is normal bilateral th yroid gland contour and morphology. There is mildly heterogeneous thyroid parenchymal echotexture. A mixed cystic and solid isoechoic well-circumscribed nodule at the mid to lower right thyroid lobe kal suring 2.3 x 1.6 x 1.6 cm is noted with a single coarse calcification. Hypoechoic nodule at the mid left thyroid lobe measuring 1.4 x 2.1 x 1.4 cm with curvilinear ventral ri m calcification is noted; th e posterior acoustic shadowing from the calcification limits detailed evaluation of the internal echotexture of the nodule. There is no adjacent jugular chain lymphadenopat hy. IMPRESSION: 1. NODULE #: 1 - Size: 1.4 x 2.1 x 1.4 cm - Location: Mid left thyroid lobe - Composition: solid or almost completely solid: 2 points - Echogenicity: hypoechoic: 2 points - Shape: wider than tall: 0 points - Margin: smooth: 0 points - Echogenic foci?: peripheral/rim calcifications : 2 points TI-RADS Category: TR4: 4-6 p oints. Moderately suspicious. If >= 1cm follow up at 1,2,3 and 5 years. If >=1.5cm FNA. By TI-RADS criteria, this nodule should be biopsied. 2. NODULE #: 2 - Size: 2.3 x 1.6 x 1.6 cm - Location: Mid to lower right thyroid lobe - Composition: mixed cystic/solid: 1 point - Echogenicity: hyper or isoechoic: 1 point - Shape: wider than tall: 0 points - Margin: smooth: 0 points - Echogenic foci?: macrocalcifications: 1 point TI-RADS Category: TR3: 3 poi nts. Mildly suspicious. If >= 1.5 cm follow up at 1,3 and 5 years. If >=2.5 cm FNA. By TI-RADS criteria, this nodule should be followed per schedule above. SL: [id number] 2018-07-07 Patient Name: HARLEEN ALICEA SOHEILA [place] 11:18:00-00:00 : 1955; Age: 63 years y/o Female MR: [id number] Study: Thyroid US 07/07/2018 11:18 CDT Ordering Physician: Griselda Tolbert MD Clinical Indication: thyromegaly - thyromegaly; Comparison: None TECHNIQUE: Sonographic evaluation of the thyroid gland is p erformed FINDINGS: The right thyroid lobe measu res 4.9 x 1.8 x 2.7 cm. The left thyroid lobe measures 4.3 x 1.6 x 1.6 cm. The thyroid isthmus measures 3 mm. There is normal bilateral th yroid gland contour and morphology. There is mildly heterogeneous thyroid parenchymal echotexture. A mixed cystic and solid isoechoic well-circumscribed nodule at the mid to lower right thyroid lobe kal suring 2.3 x 1.6 x 1.6 cm is noted with a single coarse calcification. Hypoechoic nodule at the mid left thyroid lobe measuring 1.4 x 2.1 x 1.4 cm with curvilinear ventral ri m calcification is noted; th e posterior acoustic shadowing from the calcification limits detailed evaluation of the internal echotexture of the nodule. There is no adjacent jugular chain lymphadenopat hy. IMPRESSION: 1. NODULE #: 1 - Size: 1.4 x 2.1 x 1.4 cm - Location: Mid left thyroid lobe - Composition: solid or almost completely solid: 2 points - Echogenicity: hypoechoic: 2 points - Shape: wider than tall: 0 points - Margin: smooth: 0 points - Echogenic foci?: peripheral/rim calcifications : 2 points TI-RADS Category: TR4: 4-6 p oints. Moderately suspicious. If >= 1cm follow up at 1,2,3 and 5 years. If >=1.5cm FNA. By TI-RADS criteria, this nodule should be biopsied. 2. NODULE #: 2 - Size: 2.3 x 1.6 x 1.6 cm - Location: Mid to lower right thyroid lobe - Composition: mixed cystic/solid: 1 point - Echogenicity: hyper or isoechoic: 1 point - Shape: wider than tall: 0 points - Margin: smooth: 0 points - Echogenic foci?: macrocalcifications: 1 point TI-RADS Category: TR3: 3 poi nts. Mildly suspicious. If >= 1.5 cm follow up at 1,3 and 5 years. If >=2.5 cm FNA. By TI-RADS criteria, this nodule should be followed per schedule above. SL: [id number] 2018-07-07 Patient Name: HARLEEN Murcialand 11:18:00-00:00 : 1955; Age: 63 years y/o Female MR: [id number] Study: Thyroid US 07/07/2018 11:18 CDT Ordering Physician: Griselda Tolbert MD Clinical Indication: thyromegaly - thyromegaly; Comparison: None TECHNIQUE: Sonographic evaluation of the thyroid gland is p erformed FINDINGS: The right thyroid lobe measu res 4.9 x 1.8 x 2.7 cm. The left thyroid lobe measures 4.3 x 1.6 x 1.6 cm. The thyroid isthmus measures 3 mm. There is normal bilateral th yroid gland contour and morphology. There is mildly heterogeneous thyroid parenchymal echotexture. A mixed cystic and solid isoechoic well-circumscribed nodule at the mid to lower right thyroid lobe kal suring 2.3 x 1.6 x 1.6 cm is noted with a single coarse calcification. Hypoechoic nodule at the mid left thyroid lobe measuring 1.4 x 2.1 x 1.4 cm with curvilinear ventral ri m calcification is noted; th e posterior acoustic shadowing from the calcification limits detailed evaluation of the internal echotexture of the nodule. There is no adjacent jugular chain lymphadenopat hy. IMPRESSION: 1. NODULE #: 1 - Size: 1.4 x 2.1 x 1.4 cm - Location: Mid left thyroid lobe - Composition: solid or almost completely solid: 2 points - Echogenicity: hypoechoic: 2 points - Shape: wider than tall: 0 points - Margin: smooth: 0 points - Echogenic foci?: peripheral/rim calcifications : 2 points TI-RADS Category: TR4: 4-6 p oints. Moderately suspicious. If >= 1cm follow up at 1,2,3 and 5 years. If >=1.5cm FNA. By TI-RADS criteria, this nodule should be biopsied. 2. NODULE #: 2 - Size: 2.3 x 1.6 x 1.6 cm - Location: Mid to lower right thyroid lobe - Composition: mixed cystic/solid: 1 point - Echogenicity: hyper or isoechoic: 1 point - Shape: wider than tall: 0 points - Margin: smooth: 0 points - Echogenic foci?: macrocalcifications: 1 point TI-RADS Category: TR3: 3 poi nts. Mildly suspicious. If >= 1.5 cm follow up at 1,3 and 5 years. If >=2.5 cm FNA. By TI-RADS criteria, this nodule should be followed per schedule above. SL: [id number] 2018-07-07 Patient Name: HARLEEN PARNELL [place] 11:18:00-00:00 : 1955; Age: 63 years y/o Female MR: [id number] Study: Thyroid US 07/07/2018 11:18 CDT Ordering Physician: Griselda Tolbert MD Clinical Indication: thyromegaly - thyromegaly; Comparison: None TECHNIQUE: Sonographic evaluation of the thyroid gland is p erformed FINDINGS: The right thyroid lobe measu res 4.9 x 1.8 x 2.7 cm. The left thyroid lobe measures 4.3 x 1.6 x 1.6 cm. The thyroid isthmus measures 3 mm. There is normal bilateral th yroid gland contour and morphology. There is mildly heterogeneous thyroid parenchymal echotexture. A mixed cystic and solid isoechoic well-circumscribed nodule at the mid to lower right thyroid lobe kal suring 2.3 x 1.6 x 1.6 cm is noted with a single coarse calcification. Hypoechoic nodule at the mid left thyroid lobe measuring 1.4 x 2.1 x 1.4 cm with curvilinear ventral ri m calcification is noted; th e posterior acoustic shadowing from the calcification limits detailed evaluation of the internal echotexture of the nodule. There is no adjacent jugular chain lymphadenopat hy. IMPRESSION: 1. NODULE #: 1 - Size: 1.4 x 2.1 x 1.4 cm - Location: Mid left thyroid lobe - Composition: solid or almost completely solid: 2 points - Echogenicity: hypoechoic: 2 points - Shape: wider than tall: 0 points - Margin: smooth: 0 points - Echogenic foci?: peripheral/rim calcifications : 2 points TI-RADS Category: TR4: 4-6 p oints. Moderately suspicious. If >= 1cm follow up at 1,2,3 and 5 years. If >=1.5cm FNA. By TI-RADS criteria, this nodule should be biopsied. 2. NODULE #: 2 - Size: 2.3 x 1.6 x 1.6 cm - Location: Mid to lower right thyroid lobe - Composition: mixed cystic/solid: 1 point - Echogenicity: hyper or isoechoic: 1 point - Shape: wider than tall: 0 points - Margin: smooth: 0 points - Echogenic foci?: macrocalcifications: 1 point TI-RADS Category: TR3: 3 poi nts. Mildly suspicious. If >= 1.5 cm follow up at 1,3 and 5 years. If >=2.5 cm FNA. By TI-RADS criteria, this nodule should be followed per schedule above. SL: [id number] 2018-07-07 Patient Name: HARLEEN Morrow 11:18:00-00:00 : 1955; Age: 63 years y/o Female MR: [id number] Study: Thyroid US 07/07/2018 11:18 CDT Ordering Physician: Griselda Tolbert MD Clinical Indication: thyromegaly - thyromegaly; Comparison: None TECHNIQUE: Sonographic evaluation of the thyroid gland is p erformed FINDINGS: The right thyroid lobe measu res 4.9 x 1.8 x 2.7 cm. The left thyroid lobe measures 4.3 x 1.6 x 1.6 cm. The thyroid isthmus measures 3 mm. There is normal bilateral th yroid gland contour and morphology. There is mildly heterogeneous thyroid parenchymal echotexture. A mixed cystic and solid isoechoic well-circumscribed nodule at the mid to lower right thyroid lobe kal suring 2.3 x 1.6 x 1.6 cm is noted with a single coarse calcification. Hypoechoic nodule at the mid left thyroid lobe measuring 1.4 x 2.1 x 1.4 cm with curvilinear ventral ri m calcification is noted; th e posterior acoustic shadowing from the calcification limits detailed evaluation of the internal echotexture of the nodule. There is no adjacent jugular chain lymphadenopat hy. IMPRESSION: 1. NODULE #: 1 - Size: 1.4 x 2.1 x 1.4 cm - Location: Mid left thyroid lobe - Composition: solid or almost completely solid: 2 points - Echogenicity: hypoechoic: 2 points - Shape: wider than tall: 0 points - Margin: smooth: 0 points - Echogenic foci?: peripheral/rim calcifications : 2 points TI-RADS Category: TR4: 4-6 p oints. Moderately suspicious. If >= 1cm follow up at 1,2,3 and 5 years. If >=1.5cm FNA. By TI-RADS criteria, this nodule should be biopsied. 2. NODULE #: 2 - Size: 2.3 x 1.6 x 1.6 cm - Location: Mid to lower right thyroid lobe - Composition: mixed cystic/solid: 1 point - Echogenicity: hyper or isoechoic: 1 point - Shape: wider than tall: 0 points - Margin: smooth: 0 points - Echogenic foci?: macrocalcifications: 1 point TI-RADS Category: TR3: 3 poi nts. Mildly suspicious. If >= 1.5 cm follow up at 1,3 and 5 years. If >=2.5 cm FNA. By TI-RADS criteria, this nodule should be followed per schedule above. SL: [id number] 2018-07-07 Patient Name: HARLEEN PARNELL [place] 11:18:00-00:00 : 1955; Age: 63 years y/o Female MR: [id number] Study: Thyroid US 07/07/2018 11:18 CDT Ordering Physician: Griselda Tolbert MD Clinical Indication: thyromegaly - thyromegaly; Comparison: None TECHNIQUE: Sonographic evaluation of the thyroid gland is p erformed FINDINGS: The right thyroid lobe measu res 4.9 x 1.8 x 2.7 cm. The left thyroid lobe measures 4.3 x 1.6 x 1.6 cm. The thyroid isthmus measures 3 mm. There is normal bilateral th yroid gland contour and morphology. There is mildly heterogeneous thyroid parenchymal echotexture. A mixed cystic and solid isoechoic well-circumscribed nodule at the mid to lower right thyroid lobe kal suring 2.3 x 1.6 x 1.6 cm is noted with a single coarse calcification. Hypoechoic nodule at the mid left thyroid lobe measuring 1.4 x 2.1 x 1.4 cm with curvilinear ventral ri m calcification is noted; th e posterior acoustic shadowing from the calcification limits detailed evaluation of the internal echotexture of the nodule. There is no adjacent jugular chain lymphadenopat hy. IMPRESSION: 1. NODULE #: 1 - Size: 1.4 x 2.1 x 1.4 cm - Location: Mid left thyroid lobe - Composition: solid or almost completely solid: 2 points - Echogenicity: hypoechoic: 2 points - Shape: wider than tall: 0 points - Margin: smooth: 0 points - Echogenic foci?: peripheral/rim calcifications : 2 points TI-RADS Category: TR4: 4-6 p oints. Moderately suspicious. If >= 1cm follow up at 1,2,3 and 5 years. If >=1.5cm FNA. By TI-RADS criteria, this nodule should be biopsied. 2. NODULE #: 2 - Size: 2.3 x 1.6 x 1.6 cm - Location: Mid to lower right thyroid lobe - Composition: mixed cystic/solid: 1 point - Echogenicity: hyper or isoechoic: 1 point - Shape: wider than tall: 0 points - Margin: smooth: 0 points - Echogenic foci?: macrocalcifications: 1 point TI-RADS Category: TR3: 3 poi nts. Mildly suspicious. If >= 1.5 cm follow up at 1,3 and 5 years. If >=2.5 cm FNA. By TI-RADS criteria, this nodule should be followed per schedule above. SL: [id number] 2018-07-07 Patient Name: HARLEEN ALICEA SOHEILA [place] 11:18:00-00:00 : 1955; Age: 63 years y/o Female MR: [id number] Study: Thyroid US 07/07/2018 11:18 CDT Ordering Physician: Griselda Tolbert MD Clinical Indication: thyromegaly - thyromegaly; Comparison: None TECHNIQUE: Sonographic evaluation of the thyroid gland is p erformed FINDINGS: The right thyroid lobe measu res 4.9 x 1.8 x 2.7 cm. The left thyroid lobe measures 4.3 x 1.6 x 1.6 cm. The thyroid isthmus measures 3 mm. There is normal bilateral th yroid gland contour and morphology. There is mildly heterogeneous thyroid parenchymal echotexture. A mixed cystic and solid isoechoic well-circumscribed nodule at the mid to lower right thyroid lobe kal suring 2.3 x 1.6 x 1.6 cm is noted with a single coarse calcification. Hypoechoic nodule at the mid left thyroid lobe measuring 1.4 x 2.1 x 1.4 cm with curvilinear ventral ri m calcification is noted; th e posterior acoustic shadowing from the calcification limits detailed evaluation of the internal echotexture of the nodule. There is no adjacent jugular chain lymphadenopat hy. IMPRESSION: 1. NODULE #: 1 - Size: 1.4 x 2.1 x 1.4 cm - Location: Mid left thyroid lobe - Composition: solid or almost completely solid: 2 points - Echogenicity: hypoechoic: 2 points - Shape: wider than tall: 0 points - Margin: smooth: 0 points - Echogenic foci?: peripheral/rim calcifications : 2 points TI-RADS Category: TR4: 4-6 p oints. Moderately suspicious. If >= 1cm follow up at 1,2,3 and 5 years. If >=1.5cm FNA. By TI-RADS criteria, this nodule should be biopsied. 2. NODULE #: 2 - Size: 2.3 x 1.6 x 1.6 cm - Location: Mid to lower right thyroid lobe - Composition: mixed cystic/solid: 1 point - Echogenicity: hyper or isoechoic: 1 point - Shape: wider than tall: 0 points - Margin: smooth: 0 points - Echogenic foci?: macrocalcifications: 1 point TI-RADS Category: TR3: 3 poi nts. Mildly suspicious. If >= 1.5 cm follow up at 1,3 and 5 years. If >=2.5 cm FNA. By TI-RADS criteria, this nodule should be followed per schedule above. SL: [id number] 2018-07-07 Patient Name: HARLEEN ALICEA SOHEILA [place] 11:18:00-00:00 : 1955; Age: 63 years y/o Female MR: [id number] Study: Thyroid US 07/07/2018 11:18 CDT Ordering Physician: Griselda Tolbert MD Clinical Indication: thyromegaly - thyromegaly; Comparison: None TECHNIQUE: Sonographic evaluation of the thyroid gland is p erformed FINDINGS: The right thyroid lobe measu res 4.9 x 1.8 x 2.7 cm. The left thyroid lobe measures 4.3 x 1.6 x 1.6 cm. The thyroid isthmus measures 3 mm. There is normal bilateral th yroid gland contour and morphology. There is mildly heterogeneous thyroid parenchymal echotexture. A mixed cystic and solid isoechoic well-circumscribed nodule at the mid to lower right thyroid lobe kal suring 2.3 x 1.6 x 1.6 cm is noted with a single coarse calcification. Hypoechoic nodule at the mid left thyroid lobe measuring 1.4 x 2.1 x 1.4 cm with curvilinear ventral ri m calcification is noted; th e posterior acoustic shadowing from the calcification limits detailed evaluation of the internal echotexture of the nodule. There is no adjacent jugular chain lymphadenopat hy. IMPRESSION: 1. NODULE #: 1 - Size: 1.4 x 2.1 x 1.4 cm - Location: Mid left thyroid lobe - Composition: solid or almost completely solid: 2 points - Echogenicity: hypoechoic: 2 points - Shape: wider than tall: 0 points - Margin: smooth: 0 points - Echogenic foci?: peripheral/rim calcifications : 2 points TI-RADS Category: TR4: 4-6 p oints. Moderately suspicious. If >= 1cm follow up at 1,2,3 and 5 years. If >=1.5cm FNA. By TI-RADS criteria, this nodule should be biopsied. 2. NODULE #: 2 - Size: 2.3 x 1.6 x 1.6 cm - Location: Mid to lower right thyroid lobe - Composition: mixed cystic/solid: 1 point - Echogenicity: hyper or isoechoic: 1 point - Shape: wider than tall: 0 points - Margin: smooth: 0 points - Echogenic foci?: macrocalcifications: 1 point TI-RADS Category: TR3: 3 poi nts. Mildly suspicious. If >= 1.5 cm follow up at 1,3 and 5 years. If >=2.5 cm FNA. By TI-RADS criteria, this nodule should be followed per schedule above. SL: [id number] 2018-07-07 Patient Name: HARLEEN PARNELL [place] 11:18:00-00:00 : 1955; Age: 63 years y/o Female MR: [id number] Study: Thyroid US 07/07/2018 11:18 CDT Ordering Physician: Griselda Tolbert MD Clinical Indication: thyromegaly - thyromegaly; Comparison: None TECHNIQUE: Sonographic evaluation of the thyroid gland is p erformed FINDINGS: The right thyroid lobe measu res 4.9 x 1.8 x 2.7 cm. The left thyroid lobe measures 4.3 x 1.6 x 1.6 cm. The thyroid isthmus measures 3 mm. There is normal bilateral th yroid gland contour and morphology. There is mildly heterogeneous thyroid parenchymal echotexture. A mixed cystic and solid isoechoic well-circumscribed nodule at the mid to lower right thyroid lobe kal suring 2.3 x 1.6 x 1.6 cm is noted with a single coarse calcification. Hypoechoic nodule at the mid left thyroid lobe measuring 1.4 x 2.1 x 1.4 cm with curvilinear ventral ri m calcification is noted; th e posterior acoustic shadowing from the calcification limits detailed evaluation of the internal echotexture of the nodule. There is no adjacent jugular chain lymphadenopat hy. IMPRESSION: 1. NODULE #: 1 - Size: 1.4 x 2.1 x 1.4 cm - Location: Mid left thyroid lobe - Composition: solid or almost completely solid: 2 points - Echogenicity: hypoechoic: 2 points - Shape: wider than tall: 0 points - Margin: smooth: 0 points - Echogenic foci?: peripheral/rim calcifications : 2 points TI-RADS Category: TR4: 4-6 p oints. Moderately suspicious. If >= 1cm follow up at 1,2,3 and 5 years. If >=1.5cm FNA. By TI-RADS criteria, this nodule should be biopsied. 2. NODULE #: 2 - Size: 2.3 x 1.6 x 1.6 cm - Location: Mid to lower right thyroid lobe - Composition: mixed cystic/solid: 1 point - Echogenicity: hyper or isoechoic: 1 point - Shape: wider than tall: 0 points - Margin: smooth: 0 points - Echogenic foci?: macrocalcifications: 1 point TI-RADS Category: TR3: 3 poi nts. Mildly suspicious. If >= 1.5 cm follow up at 1,3 and 5 years. If >=2.5 cm FNA. By TI-RADS criteria, this nodule should be followed per schedule above. SL: [id number] 2018-07-07 Patient Name: HARLEEN PARNELL [place] 11:18:00-00:00 : 1955; Age: 63 years y/o Female MR: [id number] Study: Thyroid US 07/07/2018 11:18 CDT Ordering Physician: Griselda Tolbert MD Clinical Indication: thyromegaly - thyromegaly; Comparison: None TECHNIQUE: Sonographic evaluation of the thyroid gland is p erformed FINDINGS: The right thyroid lobe measu res 4.9 x 1.8 x 2.7 cm. The left thyroid lobe measures 4.3 x 1.6 x 1.6 cm. The thyroid isthmus measures 3 mm. There is normal bilateral th yroid gland contour and morphology. There is mildly heterogeneous thyroid parenchymal echotexture. A mixed cystic and solid isoechoic well-circumscribed nodule at the mid to lower right thyroid lobe kal suring 2.3 x 1.6 x 1.6 cm is noted with a single coarse calcification. Hypoechoic nodule at the mid left thyroid lobe measuring 1.4 x 2.1 x 1.4 cm with curvilinear ventral ri m calcification is noted; th e posterior acoustic shadowing from the calcification limits detailed evaluation of the internal echotexture of the nodule. There is no adjacent jugular chain lymphadenopat hy. IMPRESSION: 1. NODULE #: 1 - Size: 1.4 x 2.1 x 1.4 cm - Location: Mid left thyroid lobe - Composition: solid or almost completely solid: 2 points - Echogenicity: hypoechoic: 2 points - Shape: wider than tall: 0 points - Margin: smooth: 0 points - Echogenic foci?: peripheral/rim calcifications : 2 points TI-RADS Category: TR4: 4-6 p oints. Moderately suspicious. If >= 1cm follow up at 1,2,3 and 5 years. If >=1.5cm FNA. By TI-RADS criteria, this nodule should be biopsied. 2. NODULE #: 2 - Size: 2.3 x 1.6 x 1.6 cm - Location: Mid to lower right thyroid lobe - Composition: mixed cystic/solid: 1 point - Echogenicity: hyper or isoechoic: 1 point - Shape: wider than tall: 0 points - Margin: smooth: 0 points - Echogenic foci?: macrocalcifications: 1 point TI-RADS Category: TR3: 3 poi nts. Mildly suspicious. If >= 1.5 cm follow up at 1,3 and 5 years. If >=2.5 cm FNA. By TI-RADS criteria, this nodule should be followed per schedule above. SL: [id number] 2018-07-07 Patient Name: HARLEEN ALICEA SOHEILA [place] 11:18:00-00:00 : 1955; Age: 63 years y/o Female MR: [id number] Study: Thyroid US 07/07/2018 11:18 CDT Ordering Physician: Griselda Tolbert MD Clinical Indication: thyromegaly - thyromegaly; Comparison: None TECHNIQUE: Sonographic evaluation of the thyroid gland is p erformed FINDINGS: The right thyroid lobe measu res 4.9 x 1.8 x 2.7 cm. The left thyroid lobe measures 4.3 x 1.6 x 1.6 cm. The thyroid isthmus measures 3 mm. There is normal bilateral th yroid gland contour and morphology. There is mildly heterogeneous thyroid parenchymal echotexture. A mixed cystic and solid isoechoic well-circumscribed nodule at the mid to lower right thyroid lobe kal suring 2.3 x 1.6 x 1.6 cm is noted with a single coarse calcification. Hypoechoic nodule at the mid left thyroid lobe measuring 1.4 x 2.1 x 1.4 cm with curvilinear ventral ri m calcification is noted; th e posterior acoustic shadowing from the calcification limits detailed evaluation of the internal echotexture of the nodule. There is no adjacent jugular chain lymphadenopat hy. IMPRESSION: 1. NODULE #: 1 - Size: 1.4 x 2.1 x 1.4 cm - Location: Mid left thyroid lobe - Composition: solid or almost completely solid: 2 points - Echogenicity: hypoechoic: 2 points - Shape: wider than tall: 0 points - Margin: smooth: 0 points - Echogenic foci?: peripheral/rim calcifications : 2 points TI-RADS Category: TR4: 4-6 p oints. Moderately suspicious. If >= 1cm follow up at 1,2,3 and 5 years. If >=1.5cm FNA. By TI-RADS criteria, this nodule should be biopsied. 2. NODULE #: 2 - Size: 2.3 x 1.6 x 1.6 cm - Location: Mid to lower right thyroid lobe - Composition: mixed cystic/solid: 1 point - Echogenicity: hyper or isoechoic: 1 point - Shape: wider than tall: 0 points - Margin: smooth: 0 points - Echogenic foci?: macrocalcifications: 1 point TI-RADS Category: TR3: 3 poi nts. Mildly suspicious. If >= 1.5 cm follow up at 1,3 and 5 years. If >=2.5 cm FNA. By TI-RADS criteria, this nodule should be followed per schedule above. SL: [id number] 2018-07-07 Patient Name: HARLEEN Morrow 11:18:00-00:00 : 1955; Age: 63 years y/o Female MR: [id number] Study: Thyroid US 07/07/2018 11:18 CDT Ordering Physician: Griselda Tolbert MD Clinical Indication: thyromegaly - thyromegaly; Comparison: None TECHNIQUE: Sonographic evaluation of the thyroid gland is p erformed FINDINGS: The right thyroid lobe measu res 4.9 x 1.8 x 2.7 cm. The left thyroid lobe measures 4.3 x 1.6 x 1.6 cm. The thyroid isthmus measures 3 mm. There is normal bilateral th yroid gland contour and morphology. There is mildly heterogeneous thyroid parenchymal echotexture. A mixed cystic and solid isoechoic well-circumscribed nodule at the mid to lower right thyroid lobe kal suring 2.3 x 1.6 x 1.6 cm is noted with a single coarse calcification. Hypoechoic nodule at the mid left thyroid lobe measuring 1.4 x 2.1 x 1.4 cm with curvilinear ventral ri m calcification is noted; th e posterior acoustic shadowing from the calcification limits detailed evaluation of the internal echotexture of the nodule. There is no adjacent jugular chain lymphadenopat hy. IMPRESSION: 1. NODULE #: 1 - Size: 1.4 x 2.1 x 1.4 cm - Location: Mid left thyroid lobe - Composition: solid or almost completely solid: 2 points - Echogenicity: hypoechoic: 2 points - Shape: wider than tall: 0 points - Margin: smooth: 0 points - Echogenic foci?: peripheral/rim calcifications : 2 points TI-RADS Category: TR4: 4-6 p oints. Moderately suspicious. If >= 1cm follow up at 1,2,3 and 5 years. If >=1.5cm FNA. By TI-RADS criteria, this nodule should be biopsied. 2. NODULE #: 2 - Size: 2.3 x 1.6 x 1.6 cm - Location: Mid to lower right thyroid lobe - Composition: mixed cystic/solid: 1 point - Echogenicity: hyper or isoechoic: 1 point - Shape: wider than tall: 0 points - Margin: smooth: 0 points - Echogenic foci?: macrocalcifications: 1 point TI-RADS Category: TR3: 3 poi nts. Mildly suspicious. If >= 1.5 cm follow up at 1,3 and 5 years. If >=2.5 cm FNA. By TI-RADS criteria, this nodule should be followed per schedule above. SL: [id number] 2018-07-07 Patient Name: HARLEEN Murcialand 11:18:00-00:00 : 1955; Age: 63 years y/o Female MR: [id number] Study: Thyroid US 07/07/2018 11:18 CDT Ordering Physician: Griselda Tolbert MD Clinical Indication: thyromegaly - thyromegaly; Comparison: None TECHNIQUE: Sonographic evaluation of the thyroid gland is p erformed FINDINGS: The right thyroid lobe measu res 4.9 x 1.8 x 2.7 cm. The left thyroid lobe measures 4.3 x 1.6 x 1.6 cm. The thyroid isthmus measures 3 mm. There is normal bilateral th yroid gland contour and morphology. There is mildly heterogeneous thyroid parenchymal echotexture. A mixed cystic and solid isoechoic well-circumscribed nodule at the mid to lower right thyroid lobe kal suring 2.3 x 1.6 x 1.6 cm is noted with a single coarse calcification. Hypoechoic nodule at the mid left thyroid lobe measuring 1.4 x 2.1 x 1.4 cm with curvilinear ventral ri m calcification is noted; th e posterior acoustic shadowing from the calcification limits detailed evaluation of the internal echotexture of the nodule. There is no adjacent jugular chain lymphadenopat hy. IMPRESSION: 1. NODULE #: 1 - Size: 1.4 x 2.1 x 1.4 cm - Location: Mid left thyroid lobe - Composition: solid or almost completely solid: 2 points - Echogenicity: hypoechoic: 2 points - Shape: wider than tall: 0 points - Margin: smooth: 0 points - Echogenic foci?: peripheral/rim calcifications : 2 points TI-RADS Category: TR4: 4-6 p oints. Moderately suspicious. If >= 1cm follow up at 1,2,3 and 5 years. If >=1.5cm FNA. By TI-RADS criteria, this nodule should be biopsied. 2. NODULE #: 2 - Size: 2.3 x 1.6 x 1.6 cm - Location: Mid to lower right thyroid lobe - Composition: mixed cystic/solid: 1 point - Echogenicity: hyper or isoechoic: 1 point - Shape: wider than tall: 0 points - Margin: smooth: 0 points - Echogenic foci?: macrocalcifications: 1 point TI-RADS Category: TR3: 3 poi nts. Mildly suspicious. If >= 1.5 cm follow up at 1,3 and 5 years. If >=2.5 cm FNA. By TI-RADS criteria, this nodule should be followed per schedule above. SL: [id number] 2018-07-07 Patient Name: HARLEEN PARNELL [place] 11:18:00-00:00 : 1955; Age: 63 years y/o Female MR: [id number] Study: Thyroid US 07/07/2018 11:18 CDT Ordering Physician: Griselda Tolbert MD Clinical Indication: thyromegaly - thyromegaly; Comparison: None TECHNIQUE: Sonographic evaluation of the thyroid gland is p erformed FINDINGS: The right thyroid lobe measu res 4.9 x 1.8 x 2.7 cm. The left thyroid lobe measures 4.3 x 1.6 x 1.6 cm. The thyroid isthmus measures 3 mm. There is normal bilateral th yroid gland contour and morphology. There is mildly heterogeneous thyroid parenchymal echotexture. A mixed cystic and solid isoechoic well-circumscribed nodule at the mid to lower right thyroid lobe kal suring 2.3 x 1.6 x 1.6 cm is noted with a single coarse calcification. Hypoechoic nodule at the mid left thyroid lobe measuring 1.4 x 2.1 x 1.4 cm with curvilinear ventral ri m calcification is noted; th e posterior acoustic shadowing from the calcification limits detailed evaluation of the internal echotexture of the nodule. There is no adjacent jugular chain lymphadenopat hy. IMPRESSION: 1. NODULE #: 1 - Size: 1.4 x 2.1 x 1.4 cm - Location: Mid left thyroid lobe - Composition: solid or almost completely solid: 2 points - Echogenicity: hypoechoic: 2 points - Shape: wider than tall: 0 points - Margin: smooth: 0 points - Echogenic foci?: peripheral/rim calcifications : 2 points TI-RADS Category: TR4: 4-6 p oints. Moderately suspicious. If >= 1cm follow up at 1,2,3 and 5 years. If >=1.5cm FNA. By TI-RADS criteria, this nodule should be biopsied. 2. NODULE #: 2 - Size: 2.3 x 1.6 x 1.6 cm - Location: Mid to lower right thyroid lobe - Composition: mixed cystic/solid: 1 point - Echogenicity: hyper or isoechoic: 1 point - Shape: wider than tall: 0 points - Margin: smooth: 0 points - Echogenic foci?: macrocalcifications: 1 point TI-RADS Category: TR3: 3 poi nts. Mildly suspicious. If >= 1.5 cm follow up at 1,3 and 5 years. If >=2.5 cm FNA. By TI-RADS criteria, this nodule should be followed per schedule above. SL: [id number] 2018-07-07 Clinical Indication: abd pain - abd pain; [facility] [place] 11:17:00-00:00 Comparison: 10/08/2006 TECHNIQUE: Grayscale and limited color sonographic evaluation of the abdomen was performed with standard technique. FINDINGS: LIVER: The visualized liver shows n ormal contour, size, and morphology with normal parenchymal echo texture. BILE DUCTS: The intrahepatic and extrahe patic bile ducts are not dilated with the common bile duct measuring 4 mm. The distal common bile duct is not well seen. GALLBLADDER: The gallbladder was removed. PANCREAS: The visualized pancreas appears unremarkable.. SPLEEN: The spleen is unremarkable and measures 8 x 4 x 5.7 cm. KIDNEY: The right kidney measures 11.6 x 4.9 x 5 cm. The left kidney measures 11.7 x 5.6 x 4.2 cm. There is normal renal contou r with normal parenchymal echotexture. There are bilateral renal cysts measuring 3.9 x 3.6 x 2.7 cm on the right and 6.3 x 4.8 x 7.3 cm on the left. The cyst demonstrate no complex features. There is no hydronephrosis. AORTA AND INFERIOR VENA CAVA: Visualized portions appear unremarkable. ASCITES: There is no right abdominal ascites. IMPRESSION: 1. Bilateral renal cysts wit h the largest on the left with a maximum size of 7.3 cm. 2. Previous cholecystectomy. SL: [id number] 2018-07-07 Clinical Indication: abd pain - abd pain; [facility] [place] 11:17:00-00:00 Comparison: 10/08/2006 TECHNIQUE: Grayscale and limited color sonographic evaluation of the abdomen was performed with standard technique. FINDINGS: LIVER: The visualized liver shows n ormal contour, size, and morphology with normal parenchymal echo texture. BILE DUCTS: The intrahepatic and extrahe patic bile ducts are not dilated with the common bile duct measuring 4 mm. The distal common bile duct is not well seen. GALLBLADDER: The gallbladder was removed. PANCREAS: The visualized pancreas appears unremarkable.. SPLEEN: The spleen is unremarkable and measures 8 x 4 x 5.7 cm. KIDNEY: The right kidney measures 11.6 x 4.9 x 5 cm. The left kidney measures 11.7 x 5.6 x 4.2 cm. There is normal renal contou r with normal parenchymal echotexture. There are bilateral renal cysts measuring 3.9 x 3.6 x 2.7 cm on the right and 6.3 x 4.8 x 7.3 cm on the left. The cyst demonstrate no complex features. There is no hydronephrosis. AORTA AND INFERIOR VENA CAVA: Visualized portions appear unremarkable. ASCITES: There is no right abdominal ascites. IMPRESSION: 1. Bilateral renal cysts wit h the largest on the left with a maximum size of 7.3 cm. 2. Previous cholecystectomy. SL: [id number]-M 2018-07-07 Clinical Indication: abd pain - abd pain; SOHEILA [place] 11:17:00-00:00 Comparison: 10/08/2006 TECHNIQUE: Grayscale and limited color sonographic evaluation of the abdomen was performed with standard technique. FINDINGS: LIVER: The visualized liver shows n ormal contour, size, and morphology with normal parenchymal echo texture. BILE DUCTS: The intrahepatic and extrahe patic bile ducts are not dilated with the common bile duct measuring 4 mm. The distal common bile duct is not well seen. GALLBLADDER: The gallbladder was removed. PANCREAS: The visualized pancreas appears unremarkable.. SPLEEN: The spleen is unremarkable and measures 8 x 4 x 5.7 cm. KIDNEY: The right kidney measures 11.6 x 4.9 x 5 cm. The left kidney measures 11.7 x 5.6 x 4.2 cm. There is normal renal contou r with normal parenchymal echotexture. There are bilateral renal cysts measuring 3.9 x 3.6 x 2.7 cm on the right and 6.3 x 4.8 x 7.3 cm on the left. The cyst demonstrate no complex features. There is no hydronephrosis. AORTA AND INFERIOR VENA CAVA: Visualized portions appear unremarkable. ASCITES: There is no right abdominal ascites. IMPRESSION: 1. Bilateral renal cysts wit h the largest on the left with a maximum size of 7.3 cm. 2. Previous cholecystectomy. SL: [id number] 2018-07-07 Clinical Indication: abd pain - abd pain; [facility] [place] 11[facility]17:00-00:00 Comparison: 10/08/2006 TECHNIQUE: Grayscale and limited color sonographic evaluation of the abdomen was performed with standard technique. FINDINGS: LIVER: The visualized liver shows n ormal contour, size, and morphology with normal parenchymal echo texture. BILE DUCTS: The intrahepatic and extrahe patic bile ducts are not dilated with the common bile duct measuring 4 mm. The distal common bile duct is not well seen. GALLBLADDER: The gallbladder was removed. PANCREAS: The visualized pancreas appears unremarkable.. SPLEEN: The spleen is unremarkable and measures 8 x 4 x 5.7 cm. KIDNEY: The right kidney measures 11.6 x 4.9 x 5 cm. The left kidney measures 11.7 x 5.6 x 4.2 cm. There is normal renal contou r with normal parenchymal echotexture. There are bilateral renal cysts measuring 3.9 x 3.6 x 2.7 cm on the right and 6.3 x 4.8 x 7.3 cm on the left. The cyst demonstrate no complex features. There is no hydronephrosis. AORTA AND INFERIOR VENA CAVA: Visualized portions appear unremarkable. ASCITES: There is no right abdominal ascites. IMPRESSION: 1. Bilateral renal cysts wit h the largest on the left with a maximum size of 7.3 cm. 2. Previous cholecystectomy. : [id number]-M 2018-07-07 Clinical Indication: abd pain - abd pain; [facility] 11:17:00-00:00 Comparison: 10/08/2006 TECHNIQUE: Grayscale and limited color sonographic evaluation of the abdomen was performed with standard technique. FINDINGS: LIVER: The visualized liver shows n ormal contour, size, and morphology with normal parenchymal echo texture. BILE DUCTS: The intrahepatic and extrahe patic bile ducts are not dilated with the common bile duct measuring 4 mm. The distal common bile duct is not well seen. GALLBLADDER: The gallbladder was removed. PANCREAS: The visualized pancreas appears unremarkable.. SPLEEN: The spleen is unremarkable and measures 8 x 4 x 5.7 cm. KIDNEY: The right kidney measures 11.6 x 4.9 x 5 cm. The left kidney measures 11.7 x 5.6 x 4.2 cm. There is normal renal contou r with normal parenchymal echotexture. There are bilateral renal cysts measuring 3.9 x 3.6 x 2.7 cm on the right and 6.3 x 4.8 x 7.3 cm on the left. The cyst demonstrate no complex features. There is no hydronephrosis. AORTA AND INFERIOR VENA CAVA: Visualized portions appear unremarkable. ASCITES: There is no right abdominal ascites. IMPRESSION: 1. Bilateral renal cysts wit h the largest on the left with a maximum size of 7.3 cm. 2. Previous cholecystectomy. SL: [id number]-M 2018-07-07 Clinical Indication: abd pain - abd pain; [facility] [place] 11:17:00-00:00 Comparison: 10/08/2006 TECHNIQUE: Grayscale and limited color sonographic evaluation of the abdomen was performed with standard technique. FINDINGS: LIVER: The visualized liver shows n ormal contour, size, and morphology with normal parenchymal echo texture. BILE DUCTS: The intrahepatic and extrahe patic bile ducts are not dilated with the common bile duct measuring 4 mm. The distal common bile duct is not well seen. GALLBLADDER: The gallbladder was removed. PANCREAS: The visualized pancreas appears unremarkable.. SPLEEN: The spleen is unremarkable and measures 8 x 4 x 5.7 cm. KIDNEY: The right kidney measures 11.6 x 4.9 x 5 cm. The left kidney measures 11.7 x 5.6 x 4.2 cm. There is normal renal contou r with normal parenchymal echotexture. There are bilateral renal cysts measuring 3.9 x 3.6 x 2.7 cm on the right and 6.3 x 4.8 x 7.3 cm on the left. The cyst demonstrate no complex features. There is no hydronephrosis. AORTA AND INFERIOR VENA CAVA: Visualized portions appear unremarkable. ASCITES: There is no right abdominal ascites. IMPRESSION: 1. Bilateral renal cysts wit h the largest on the left with a maximum size of 7.3 cm. 2. Previous cholecystectomy. SL: [id number]-M 2018-07-07 Clinical Indication: abd pain - abd pain; [facility] [place] 11:17:00-00:00 Comparison: 10/08/2006 TECHNIQUE: Grayscale and limited color sonographic evaluation of the abdomen was performed with standard technique. FINDINGS: LIVER: The visualized liver shows n ormal contour, size, and morphology with normal parenchymal echo texture. BILE DUCTS: The intrahepatic and extrahe patic bile ducts are not dilated with the common bile duct measuring 4 mm. The distal common bile duct is not well seen. GALLBLADDER: The gallbladder was removed. PANCREAS: The visualized pancreas appears unremarkable.. SPLEEN: The spleen is unremarkable and measures 8 x 4 x 5.7 cm. KIDNEY: The right kidney measures 11.6 x 4.9 x 5 cm. The left kidney measures 11.7 x 5.6 x 4.2 cm. There is normal renal contou r with normal parenchymal echotexture. There are bilateral renal cysts measuring 3.9 x 3.6 x 2.7 cm on the right and 6.3 x 4.8 x 7.3 cm on the left. The cyst demonstrate no complex features. There is no hydronephrosis. AORTA AND INFERIOR VENA CAVA: Visualized portions appear unremarkable. ASCITES: There is no right abdominal ascites. IMPRESSION: 1. Bilateral renal cysts wit h the largest on the left with a maximum size of 7.3 cm. 2. Previous cholecystectomy. SL: [id number]-M 2018-07-07 Clinical Indication: abd pain - abd pain; [facility] 11:17:00-00:00 Comparison: 10/08/2006 TECHNIQUE: Grayscale and limited color sonographic evaluation of the abdomen was performed with standard technique. FINDINGS: LIVER: The visualized liver shows n ormal contour, size, and morphology with normal parenchymal echo texture. BILE DUCTS: The intrahepatic and extrahe patic bile ducts are not dilated with the common bile duct measuring 4 mm. The distal common bile duct is not well seen. GALLBLADDER: The gallbladder was removed. PANCREAS: The visualized pancreas appears unremarkable.. SPLEEN: The spleen is unremarkable and measures 8 x 4 x 5.7 cm. KIDNEY: The right kidney measures 11.6 x 4.9 x 5 cm. The left kidney measures 11.7 x 5.6 x 4.2 cm. There is normal renal contou r with normal parenchymal echotexture. There are bilateral renal cysts measuring 3.9 x 3.6 x 2.7 cm on the right and 6.3 x 4.8 x 7.3 cm on the left. The cyst demonstrate no complex features. There is no hydronephrosis. AORTA AND INFERIOR VENA CAVA: Visualized portions appear unremarkable. ASCITES: There is no right abdominal ascites. IMPRESSION: 1. Bilateral renal cysts wit h the largest on the left with a maximum size of 7.3 cm. 2. Previous cholecystectomy. SL: [id number]-M 2018-07-07 Clinical Indication: abd pain - abd pain; [facility] [place] 11:17:00-00:00 Comparison: 10/08/2006 TECHNIQUE: Grayscale and limited color sonographic evaluation of the abdomen was performed with standard technique. FINDINGS: LIVER: The visualized liver shows n ormal contour, size, and morphology with normal parenchymal echo texture. BILE DUCTS: The intrahepatic and extrahe patic bile ducts are not dilated with the common bile duct measuring 4 mm. The distal common bile duct is not well seen. GALLBLADDER: The gallbladder was removed. PANCREAS: The visualized pancreas appears unremarkable.. SPLEEN: The spleen is unremarkable and measures 8 x 4 x 5.7 cm. KIDNEY: The right kidney measures 11.6 x 4.9 x 5 cm. The left kidney measures 11.7 x 5.6 x 4.2 cm. There is normal renal contou r with normal parenchymal echotexture. There are bilateral renal cysts measuring 3.9 x 3.6 x 2.7 cm on the right and 6.3 x 4.8 x 7.3 cm on the left. The cyst demonstrate no complex features. There is no hydronephrosis. AORTA AND INFERIOR VENA CAVA: Visualized portions appear unremarkable. ASCITES: There is no right abdominal ascites. IMPRESSION: 1. Bilateral renal cysts wit h the largest on the left with a maximum size of 7.3 cm. 2. Previous cholecystectomy. SL: [id number]-M 2018-07-07 Clinical Indication: abd pain - abd pain; SOHEILA [place] 11:17:00-00:00 Comparison: 10/08/2006 TECHNIQUE: Grayscale and limited color sonographic evaluation of the abdomen was performed with standard technique. FINDINGS: LIVER: The visualized liver shows n ormal contour, size, and morphology with normal parenchymal echo texture. BILE DUCTS: The intrahepatic and extrahe patic bile ducts are not dilated with the common bile duct measuring 4 mm. The distal common bile duct is not well seen. GALLBLADDER: The gallbladder was removed. PANCREAS: The visualized pancreas appears unremarkable.. SPLEEN: The spleen is unremarkable and measures 8 x 4 x 5.7 cm. KIDNEY: The right kidney measures 11.6 x 4.9 x 5 cm. The left kidney measures 11.7 x 5.6 x 4.2 cm. There is normal renal contou r with normal parenchymal echotexture. There are bilateral renal cysts measuring 3.9 x 3.6 x 2.7 cm on the right and 6.3 x 4.8 x 7.3 cm on the left. The cyst demonstrate no complex features. There is no hydronephrosis. AORTA AND INFERIOR VENA CAVA: Visualized portions appear unremarkable. ASCITES: There is no right abdominal ascites. IMPRESSION: 1. Bilateral renal cysts wit h the largest on the left with a maximum size of 7.3 cm. 2. Previous cholecystectomy. SL: [id number]-M 2018-07-07 Clinical Indication: abd pain - abd pain; [facility] ROXANAD [place] 11:17:00-00:00 Comparison: 10/08/2006 TECHNIQUE: Grayscale and limited color sonographic evaluation of the abdomen was performed with standard technique. FINDINGS: LIVER: The visualized liver shows n ormal contour, size, and morphology with normal parenchymal echo texture. BILE DUCTS: The intrahepatic and extrahe patic bile ducts are not dilated with the common bile duct measuring 4 mm. The distal common bile duct is not well seen. GALLBLADDER: The gallbladder was removed. PANCREAS: The visualized pancreas appears unremarkable.. SPLEEN: The spleen is unremarkable and measures 8 x 4 x 5.7 cm. KIDNEY: The right kidney measures 11.6 x 4.9 x 5 cm. The left kidney measures 11.7 x 5.6 x 4.2 cm. There is normal renal contou r with normal parenchymal echotexture. There are bilateral renal cysts measuring 3.9 x 3.6 x 2.7 cm on the right and 6.3 x 4.8 x 7.3 cm on the left. The cyst demonstrate no complex features. There is no hydronephrosis. AORTA AND INFERIOR VENA CAVA: Visualized portions appear unremarkable. ASCITES: There is no right abdominal ascites. IMPRESSION: 1. Bilateral renal cysts wit h the largest on the left with a maximum size of 7.3 cm. 2. Previous cholecystectomy. SL: [id number]-M 2018-07-07 Clinical Indication: abd pain - abd pain; [facility] [place] 11:17:00-00:00 Comparison: 10/08/2006 TECHNIQUE: Grayscale and limited color sonographic evaluation of the abdomen was performed with standard technique. FINDINGS: LIVER: The visualized liver shows n ormal contour, size, and morphology with normal parenchymal echo texture. BILE DUCTS: The intrahepatic and extrahe patic bile ducts are not dilated with the common bile duct measuring 4 mm. The distal common bile duct is not well seen. GALLBLADDER: The gallbladder was removed. PANCREAS: The visualized pancreas appears unremarkable.. SPLEEN: The spleen is unremarkable and measures 8 x 4 x 5.7 cm. KIDNEY: The right kidney measures 11.6 x 4.9 x 5 cm. The left kidney measures 11.7 x 5.6 x 4.2 cm. There is normal renal contou r with normal parenchymal echotexture. There are bilateral renal cysts measuring 3.9 x 3.6 x 2.7 cm on the right and 6.3 x 4.8 x 7.3 cm on the left. The cyst demonstrate no complex features. There is no hydronephrosis. AORTA AND INFERIOR VENA CAVA: Visualized portions appear unremarkable. ASCITES: There is no right abdominal ascites. IMPRESSION: 1. Bilateral renal cysts wit h the largest on the left with a maximum size of 7.3 cm. 2. Previous cholecystectomy. SL: WR4-M 2018-07-07 Clinical Indication: abd pain - abd pain; [facility] 11:17:00-00:00 Comparison: 10/08/2006 TECHNIQUE: Grayscale and limited color sonographic evaluation of the abdomen was performed with standard technique. FINDINGS: LIVER: The visualized liver shows n ormal contour, size, and morphology with normal parenchymal echo texture. BILE DUCTS: The intrahepatic and extrahe patic bile ducts are not dilated with the common bile duct measuring 4 mm. The distal common bile duct is not well seen. GALLBLADDER: The gallbladder was removed. PANCREAS: The visualized pancreas appears unremarkable.. SPLEEN: The spleen is unremarkable and measures 8 x 4 x 5.7 cm. KIDNEY: The right kidney measures 11.6 x 4.9 x 5 cm. The left kidney measures 11.7 x 5.6 x 4.2 cm. There is normal renal contou r with normal parenchymal echotexture. There are bilateral renal cysts measuring 3.9 x 3.6 x 2.7 cm on the right and 6.3 x 4.8 x 7.3 cm on the left. The cyst demonstrate no complex features. There is no hydronephrosis. AORTA AND INFERIOR VENA CAVA: Visualized portions appear unremarkable. ASCITES: There is no right abdominal ascites. IMPRESSION: 1. Bilateral renal cysts wit h the largest on the left with a maximum size of 7.3 cm. 2. Previous cholecystectomy. SL: [id number]-M 2018-07-07 Clinical Indication: abd pain - abd pain; SO[facility] [place] 11:17:00-00:00 Comparison: 10/08/2006 TECHNIQUE: Grayscale and limited color sonographic evaluation of the abdomen was performed with standard technique. FINDINGS: LIVER: The visualized liver shows n ormal contour, size, and morphology with normal parenchymal echo texture. BILE DUCTS: The intrahepatic and extrahe patic bile ducts are not dilated with the common bile duct measuring 4 mm. The distal common bile duct is not well seen. GALLBLADDER: The gallbladder was removed. PANCREAS: The visualized pancreas appears unremarkable.. SPLEEN: The spleen is unremarkable and measures 8 x 4 x 5.7 cm. KIDNEY: The right kidney measures 11.6 x 4.9 x 5 cm. The left kidney measures 11.7 x 5.6 x 4.2 cm. There is normal renal contou r with normal parenchymal echotexture. There are bilateral renal cysts measuring 3.9 x 3.6 x 2.7 cm on the right and 6.3 x 4.8 x 7.3 cm on the left. The cyst demonstrate no complex features. There is no hydronephrosis. AORTA AND INFERIOR VENA CAVA: Visualized portions appear unremarkable. ASCITES: There is no right abdominal ascites. IMPRESSION: 1. Bilateral renal cysts wit h the largest on the left with a maximum size of 7.3 cm. 2. Previous cholecystectomy. SL: WR4-M 2018-07-07 Clinical Indication: abd pain - abd pain; SOHE[facility] [place] 11:17:00-00:00 Comparison: 10/08/2006 TECHNIQUE: Grayscale and limited color sonographic evaluation of the abdomen was performed with standard technique. FINDINGS: LIVER: The visualized liver shows n ormal contour, size, and morphology with normal parenchymal echo texture. BILE DUCTS: The intrahepatic and extrahe patic bile ducts are not dilated with the common bile duct measuring 4 mm. The distal common bile duct is not well seen. GALLBLADDER: The gallbladder was removed. PANCREAS: The visualized pancreas appears unremarkable.. SPLEEN: The spleen is unremarkable and measures 8 x 4 x 5.7 cm. KIDNEY: The right kidney measures 11.6 x 4.9 x 5 cm. The left kidney measures 11.7 x 5.6 x 4.2 cm. There is normal renal contou r with normal parenchymal echotexture. There are bilateral renal cysts measuring 3.9 x 3.6 x 2.7 cm on the right and 6.3 x 4.8 x 7.3 cm on the left. The cyst demonstrate no complex features. There is no hydronephrosis. AORTA AND INFERIOR VENA CAVA: Visualized portions appear unremarkable. ASCITES: There is no right abdominal ascites. IMPRESSION: 1. Bilateral renal cysts wit h the largest on the left with a maximum size of 7.3 cm. 2. Previous cholecystectomy. SL: [id number]-M 2018-07-07 Clinical Indication: abd pain - abd pain; [facility] 11:17:00-00:00 Comparison: 10/08/2006 TECHNIQUE: Grayscale and limited color sonographic evaluation of the abdomen was performed with standard technique. FINDINGS: LIVER: The visualized liver shows n ormal contour, size, and morphology with normal parenchymal echo texture. BILE DUCTS: The intrahepatic and extrahe patic bile ducts are not dilated with the common bile duct measuring 4 mm. The distal common bile duct is not well seen. GALLBLADDER: The gallbladder was removed. PANCREAS: The visualized pancreas appears unremarkable.. SPLEEN: The spleen is unremarkable and measures 8 x 4 x 5.7 cm. KIDNEY: The right kidney measures 11.6 x 4.9 x 5 cm. The left kidney measures 11.7 x 5.6 x 4.2 cm. There is normal renal contou r with normal parenchymal echotexture. There are bilateral renal cysts measuring 3.9 x 3.6 x 2.7 cm on the right and 6.3 x 4.8 x 7.3 cm on the left. The cyst demonstrate no complex features. There is no hydronephrosis. AORTA AND INFERIOR VENA CAVA: Visualized portions appear unremarkable. ASCITES: There is no right abdominal ascites. IMPRESSION: 1. Bilateral renal cysts wit h the largest on the left with a maximum size of 7.3 cm. 2. Previous cholecystectomy. SL: WR4-M 2018-07-07 Clinical Indication: abd pain - abd pain; [facility] 11:17:00-00:00 Comparison: 10/08/2006 TECHNIQUE: Grayscale and limited color sonographic evaluation of the abdomen was performed with standard technique. FINDINGS: LIVER: The visualized liver shows n ormal contour, size, and morphology with normal parenchymal echo texture. BILE DUCTS: The intrahepatic and extrahe patic bile ducts are not dilated with the common bile duct measuring 4 mm. The distal common bile duct is not well seen. GALLBLADDER: The gallbladder was removed. PANCREAS: The visualized pancreas appears unremarkable.. SPLEEN: The spleen is unremarkable and measures 8 x 4 x 5.7 cm. KIDNEY: The right kidney measures 11.6 x 4.9 x 5 cm. The left kidney measures 11.7 x 5.6 x 4.2 cm. There is normal renal contou r with normal parenchymal echotexture. There are bilateral renal cysts measuring 3.9 x 3.6 x 2.7 cm on the right and 6.3 x 4.8 x 7.3 cm on the left. The cyst demonstrate no complex features. There is no hydronephrosis. AORTA AND INFERIOR VENA CAVA: Visualized portions appear unremarkable. ASCITES: There is no right abdominal ascites. IMPRESSION: 1. Bilateral renal cysts wit h the largest on the left with a maximum size of 7.3 cm. 2. Previous cholecystectomy. SL: [id number] 2018-07-07 Clinical Indication: abd pain - abd pain; [facility] 11:17:00-00:00 Comparison: 10/08/2006 TECHNIQUE: Grayscale and limited color sonographic evaluation of the abdomen was performed with standard technique. FINDINGS: LIVER: The visualized liver shows n ormal contour, size, and morphology with normal parenchymal echo texture. BILE DUCTS: The intrahepatic and extrahe patic bile ducts are not dilated with the common bile duct measuring 4 mm. The distal common bile duct is not well seen. GALLBLADDER: The gallbladder was removed. PANCREAS: The visualized pancreas appears unremarkable.. SPLEEN: The spleen is unremarkable and measures 8 x 4 x 5.7 cm. KIDNEY: The right kidney measures 11.6 x 4.9 x 5 cm. The left kidney measures 11.7 x 5.6 x 4.2 cm. There is normal renal contou r with normal parenchymal echotexture. There are bilateral renal cysts measuring 3.9 x 3.6 x 2.7 cm on the right and 6.3 x 4.8 x 7.3 cm on the left. The cyst demonstrate no complex features. There is no hydronephrosis. AORTA AND INFERIOR VENA CAVA: Visualized portions appear unremarkable. ASCITES: There is no right abdominal ascites. IMPRESSION: 1. Bilateral renal cysts wit h the largest on the left with a maximum size of 7.3 cm. 2. Previous cholecystectomy. SL: TJ-Randy 2018-07-07 SOHEILA Morrow 10:40:00-00:00 BILATERAL DIGITAL SCREENING MAMMOGRAM 3D/2D WITH CAD: 07/07/2018 CLINICAL: /Routine. Current study was evaluated with a [employer] d Detection (CAD) system. COMPARISON:No previous mammo grams available for comparison at time of image interpretation. These have been requested. TECHNIQUE: Digital Breast To mosynthesis was performed and utilized for Interpretation. Current study was also evaluated with a Computer Aided Detection (CAD) system. FINDINGS: The tissue of both breasts i s heterogeneously dense, which could obscure detection of small masses. There are benign appearing calcifications in bot h breasts. There is a possible 8 mm ova l mass in the left breast at 11 o'clock middle depth 5 cm from the nipple. No other significant masses, calcifications, or other findings are seen in either breast. IMPRESSION: INCOMPLETE: NEEDS ADDITIONAL IMAGING EVALUATION RECOMMENDATION: Should previous mammograms b ecome available for comparison, an addendum comparison will be generated at no charge to the patient. In the absence of previous mammograms, recommendations are as described: The possible 8 mm oval mass in the left breast is indeterminate. Diagnostic mammography with possible ultrasound are recommended. Bilateral ultrasound should be considered in clinical context of tissue density. The staff from [facility] will contact the patient to schedule the additional studies. A supplemental report will be issued following interpretation of the additional studies. Professional services are pr ovided by the [facility]. Denys Galvan M.D. jany/:07/20/2018 08:23:22 Electronics Recycler(s): Henny Negrete letter sent: BI-RADS 0 Mammogram BI-RADS: 0 Indeterminate 2018-07-07 SOHEILA Morrow 10:40:00-00:00 BONE DENSITY ASSESSMENT: 07/07/2018 CLINICAL DATA: Post menopaus al and clinical risk for osteoporosis. Z78.0 asymptomatic postmenopausal state. /Z78.0 Asymptomatic Menopausal State DISEASE HISTORY: Cancer history and type 1 diabe alyssa. FINDINGS: Bone density evaluation was performed 07/07/2018 on the right femur neck using a Hologic unit. The BMD average for the exam is 0.670 g/cm2. The T-score is - 1.60 and the Z-score is -0.10. This matches th e World Health Organization' s criteria for osteopenia and places the patient at a medium risk for fracture. An additional bone density e valuation was performed 07/07/2018 on the left femur neck using a Hologic unit. The BMD average for the exam is 0.708 g/cm2. The T-score is -1.30 and the Z-score is 0.30. Thi s matches the World Health O rganization's criteria for osteopenia and places the patient at a medium risk for fracture. An additional bone density e valuation was performed 07/07/2018 on the right total femur area using a Hologic unit. The BMD average for the exam is 0.749 g/cm2. The T-score is -1.60 and the Z-score is -0 .30. This matches the World Health Organization's criteria for osteopenia and places the patient at a medium risk for fracture. An additional bone density e valuation was performed 07/07/2018 on the left total femur area using a Hologic unit. The BMD average for the exam is 0.846 g/cm2. The T-score is -0.80 and the Z-score is 0.5 0. This matches the World He alth Organization's criteria for normal bone density and places the patient within normal limits of fracture risk. An additional bone density e valuation was performed 07/07/2018 on the AP L1-L4 region of spine using a Hologic unit. The BMD average for the exam is 0.781 g/cm2. The T-score is -2.40 and the Z-score is -0.60. This matches the [facility]'s criteria for osteopenia and places the patient at a medium risk for fracture. FRAX 10 year probability of major osteoporotic fracture is 5.2% and hip fracture is 0.6%. IMPRESSION: OSTEOPENIA Patient is at medium risk fo r fracture. Patient consult w/primary care provider is recommended. This exam was interpreted at [id number] for MAILE Duff 15. Alysha Cruz M.D., ms/penrad:07/07/2018 13:21:38 Electronics Recycler(s): Henny Negrete [place] 2018-07-07 MODESTO Morrow 10:40:00-00:00 BILATERAL DIGITAL SCREENING MAMMOGRAM 3D/2D WITH CAD: 07/07/2018 CLINICAL: /Routine. Current study was evaluated with a [employer] d Detection (CAD) system. COMPARISON:No previous mammo grams available for comparison at time of image interpretation. These have been requested. TECHNIQUE: Digital Breast To mosynthesis was performed and utilized for Interpretation. Current study was also evaluated with a Computer Aided Detection (CAD) system. FINDINGS: The tissue of both breasts i s heterogeneously dense, which could obscure detection of small masses. There are benign appearing calcifications in bot h breasts. There is a possible 8 mm ova l mass in the left breast at 11 o'clock middle depth 5 cm from the nipple. No other significant masses, calcifications, or other findings are seen in either breast. IMPRESSION: INCOMPLETE: NEEDS ADDITIONAL IMAGING EVALUATION RECOMMENDATION: Should previous mammograms b ecome available for comparison, an addendum comparison will be generated at no charge to the patient. In the absence of previous mammograms, recommendations are as described: The possible 8 mm oval mass in the left breast is indeterminate. Diagnostic mammography with possible ultrasound are recommended. Bilateral ultrasound should be considered in clinical context of tissue density. The staff from [facility] will contact the patient to schedule the additional studies. A supplemental report will be issued following interpretation of the additional studies. Professional services are pr ovided by the [facility]. Denys Galvan M.D. jany/:07/20/2018 08:23:22 Electronics Recycler(s): Henny Negrete letter sent: BI-RADS 0 Mammogram BI-RADS: 0 Indeterminate 2018-07-07 SOHEILA Morrow 10:40:00-00:00 BONE DENSITY ASSESSMENT: 07/07/2018 CLINICAL DATA: Post menopaus al and clinical risk for osteoporosis. Z78.0 asymptomatic postmenopausal state. /Z78.0 Asymptomatic Menopausal State DISEASE HISTORY: Cancer history and type 1 diabe alyssa. FINDINGS: Bone density evaluation was performed 07/07/2018 on the right femur neck using a Hologic unit. The BMD average for the exam is 0.670 g/cm2. The T-score is - 1.60 and the Z-score is -0.10. This matches th e World Health Organization' s criteria for osteopenia and places the patient at a medium risk for fracture. An additional bone density e valuation was performed 07/07/2018 on the left femur neck using a Hologic unit. The BMD average for the exam is 0.708 g/cm2. The T-score is -1.30 and the Z-score is 0.30. Thi s matches the World Health O rganization's criteria for osteopenia and places the patient at a medium risk for fracture. An additional bone density e valuation was performed 07/07/2018 on the right total femur area using a Hologic unit. The BMD average for the exam is 0.749 g/cm2. The T-score is -1.60 and the Z-score is -0 .30. This matches the World Health Organization's criteria for osteopenia and places the patient at a medium risk for fracture. An additional bone density e valuation was performed 07/07/2018 on the left total femur area using a Hologic unit. The BMD average for the exam is 0.846 g/cm2. The T-score is -0.80 and the Z-score is 0.5 0. This matches the World He alth Organization's criteria for normal bone density and places the patient within normal limits of fracture risk. An additional bone density e valuation was performed 07/07/2018 on the AP L1-L4 region of spine using a Hologic unit. The BMD average for the exam is 0.781 g/cm2. The T-score is -2.40 and the Z-score is -0.60. This matches the Worl d Health Organization's criteria for osteopenia and places the patient at a medium risk for fracture. FRAX 10 year probability of major osteoporotic fracture is 5.2% and hip fracture is 0.6%. IMPRESSION: OSTEOPENIA Patient is at medium risk fo r fracture. Patient consult w/primary care provider is recommended. This exam was interpreted at [id number] for MODESTO Morrow, SL 15. Alysha Cruz M.D., ms/penrad:07/07/2018 13:21:38 Electronics Recycler(s): Henny Negrete 2018-07-07 MODESTO Morrow 10:40:00-00:00 BILATERAL DIGITAL SCREENING MAMMOGRAM 3D/2D WITH CAD: 07/07/2018 CLINICAL: /Routine. Current study was evaluated with a [employer] d Detection (CAD) system. COMPARISON:No previous mammo grams available for comparison at time of image interpretation. These have been requested. TECHNIQUE: Digital Breast To mosynthesis was performed and utilized for Interpretation. Current study was also evaluated with a Computer Aided Detection (CAD) system. FINDINGS: The tissue of both breasts i s heterogeneously dense, which could obscure detection of small masses. There are benign appearing calcifications in bot h breasts. There is a possible 8 mm ova l mass in the left breast at 11 o'clock middle depth 5 cm from the nipple. No other significant masses, calcifications, or other findings are seen in either breast. IMPRESSION: INCOMPLETE: NEEDS ADDITIONAL IMAGING EVALUATION RECOMMENDATION: Should previous mammograms b ecome available for comparison, an addendum comparison will be generated at no charge to the patient. In the absence of previous mammograms, recommendations are as described: The possible 8 mm oval mass in the left breast is indeterminate. Diagnostic mammography with possible ultrasound are recommended. Bilateral ultrasound should be considered in clinical context of tissue density. [facility] will contact the patient to schedule the additional studies. A supplemental report will be issued following interpretation of the additional studies. Professional services are pr ovided by the [facility]. Denys Galvan M.D. jany/:07/20/2018 08:23:22 Electronics Recycler(s): Henny Negrete letter sent: BI-RADS 0 Mammogram BI-RADS: 0 Indeterminate 2018-07-07 SOHEILA Morrow 10:40:00-00:00 BONE DENSITY ASSESSMENT: 07/07/2018 CLINICAL DATA: Post menopaus al and clinical risk for osteoporosis. Z78.0 asymptomatic postmenopausal state. /Z78.0 Asymptomatic Menopausal State DISEASE HISTORY: Cancer history and type 1 diabe alyssa. FINDINGS: Bone density evaluation was performed 07/07/2018 on the right femur neck using a Hologic unit. The BMD average for the exam is 0.670 g/cm2. The T-score is - 1.60 and the Z-score is -0.10. This matches th e World Health Organization' s criteria for osteopenia and places the patient at a medium risk for fracture. An additional bone density e valuation was performed 07/07/2018 on the left femur neck using a Hologic unit. The BMD average for the exam is 0.708 g/cm2. The T-score is -1.30 and the Z-score is 0.30. Thi s matches the World Health O rganization's criteria for osteopenia and places the patient at a medium risk for fracture. An additional bone density e valuation was performed 07/07/2018 on the right total femur area using a Hologic unit. The BMD average for the exam is 0.749 g/cm2. The T-score is -1.60 and the Z-score is -0 .30. This matches the World Health Organization's criteria for osteopenia and places the patient at a medium risk for fracture. An additional bone density e valuation was performed 07/07/2018 on the left total femur area using a Hologic unit. The BMD average for the exam is 0.846 g/cm2. The T-score is -0.80 and the Z-score is 0.5 0. This matches the World He alth Organization's criteria for normal bone density and places the patient within normal limits of fracture risk. An additional bone density e valuation was performed 07/07/2018 on the AP L1-L4 region of spine using a Hologic unit. The BMD average for the exam is 0.781 g/cm2. The T-score is -2.40 and the Z-score is -0.60. This matches the Worl d Health Organization's criteria for osteopenia and places the patient at a medium risk for fracture. FRAX 10 year probability of major osteoporotic fracture is 5.2% and hip fracture is 0.6%. IMPRESSION: OSTEOPENIA Patient is at medium risk fo r fracture. Patient consult w/primary care provider is recommended. This exam was interpreted at [id number] for MAILE Duff 15. Alysha Cruz M.D. ms/penrad:07/07/2018 13:21:38 Electronics Recycler(s): Henny Negrete 2018-07-07 MODESTO Morrow 10:40:00-00:00 BILATERAL DIGITAL SCREENING MAMMOGRAM 3D/2D WITH CAD: 07/07/2018 CLINICAL: /Routine. Current study was evaluated with a Music [employer] d Detection (CAD) system. COMPARISON:No previous mammo grams available for comparison at time of image interpretation. These have been requested. TECHNIQUE: Digital Breast To mosynthesis was performed and utilized for Interpretation. Current study was also evaluated with a Computer Aided Detection (CAD) system. FINDINGS: The tissue of both breasts i s heterogeneously dense, which could obscure detection of small masses. There are benign appearing calcifications in bot h breasts. There is a possible 8 mm ova l mass in the left breast at 11 o'clock middle depth 5 cm from the nipple. No other significant masses, calcifications, or other findings are seen in either breast. IMPRESSION: INCOMPLETE: NEEDS ADDITIONAL IMAGING EVALUATION RECOMMENDATION: Should previous mammograms b ecome available for comparison, an addendum comparison will be generated at no charge to the patient. In the absence of previous mammograms, recommendations are as described: The possible 8 mm oval mass in the left breast is indeterminate. Diagnostic mammography with possible ultrasound are recommended. Bilateral ultrasound should be considered in clinical context of tissue density. [facility] will contact the patient to schedule the additional studies. A supplemental report will be issued following interpretation of the additional studies. Professional services are pr ovided by the [facility]. Denys Galvan M.D. jany/:07/20/2018 08:23:22 Electronics Recycler(s): Henny Negrete letter sent: BI-RADS 0 Mammogram BI-RADS: 0 Indeterminate 2018-07-07 MODESTO Morrow 10:40:00-00:00 BONE DENSITY ASSESSMENT: 07/07/2018 CLINICAL DATA: Post menopaus al and clinical risk for osteoporosis. Z78.0 asymptomatic postmenopausal state. /Z78.0 Asymptomatic Menopausal State DISEASE HISTORY: Cancer history and type 1 diabe alyssa. FINDINGS: Bone density evaluation was performed 07/07/2018 on the right femur neck using a Hologic unit. The BMD average for the exam is 0.670 g/cm2. The T-score is - 1.60 and the Z-score is -0.10. This matches th e World Health Organization' s criteria for osteopenia and places the patient at a medium risk for fracture. An additional bone density e valuation was performed 07/07/2018 on the left femur neck using a Hologic unit. The BMD average for the exam is 0.708 g/cm2. The T-score is -1.30 and the Z-score is 0.30. Thi s matches the World Health O rganization's criteria for osteopenia and places the patient at a medium risk for fracture. An additional bone density e valuation was performed 07/07/2018 on the right total femur area using a Hologic unit. The BMD average for the exam is 0.749 g/cm2. The T-score is -1.60 and the Z-score is -0 .30. This matches the World Health Organization's criteria for osteopenia and places the patient at a medium risk for fracture. An additional bone density e valuation was performed 07/07/2018 on the left total femur area using a Hologic unit. The BMD average for the exam is 0.846 g/cm2. The T-score is -0.80 and the Z-score is 0.5 0. This matches the World He alth Organization's criteria for normal bone density and places the patient within normal limits of fracture risk. An additional bone density e valuation was performed 07/07/2018 on the AP L1-L4 region of spine using a Hologic unit. The BMD average for the exam is 0.781 g/cm2. The T-score is -2.40 and the Z-score is -0.60. This matches the Worl d Health Organization's criteria for osteopenia and places the patient at a medium risk for fracture. FRAX 10 year probability of major osteoporotic fracture is 5.2% and hip fracture is 0.6%. IMPRESSION: OSTEOPENIA Patient is at medium risk fo r fracture. Patient consult w/primary care provider is recommended. This exam was interpreted at [id number] for MAILE Duff 15. Alysha Cruz M.D. ms/penrad:07/07/2018 13:21:38 Electronics Recycler(s): Henny Negrete 2018-07-07 MODESTO Morrow 10:40:00-00:00 BILATERAL DIGITAL SCREENING MAMMOGRAM 3D/2D WITH CAD: 07/07/2018 CLINICAL: /Routine. Current study was evaluated with a Music [employer] d Detection (CAD) system. COMPARISON:No previous mammo grams available for comparison at time of image interpretation. These have been requested. TECHNIQUE: Digital Breast To mosynthesis was performed and utilized for Interpretation. Current study was also evaluated with a Computer Aided Detection (CAD) system. FINDINGS: The tissue of both breasts i s heterogeneously dense, which could obscure detection of small masses. There are benign appearing calcifications in bot h breasts. There is a possible 8 mm ova l mass in the left breast at 11 o'clock middle depth 5 cm from the nipple. No other significant masses, calcifications, or other findings are seen in either breast. IMPRESSION: INCOMPLETE: NEEDS ADDITIONAL IMAGING EVALUATION RECOMMENDATION: Should previous mammograms b ecome available for comparison, an addendum comparison will be generated at no charge to the patient. In the absence of previous mammograms, recommendations are as described: The possible 8 mm oval mass in the left breast is indeterminate. Diagnostic mammography with possible ultrasound are recommended. Bilateral ultrasound should be considered in clinical context of tissue density. The staff from [facility] will contact the patient to schedule the additional studies. A supplemental report will be issued following interpretation of the additional studies. Professional services are pr ovided by the [facility]. Denys Galvan M.D., jp/:07/20/2018 08:23:22 Electronics Recycler(s): Henny Negrete letter sent: BI-RADS 0 Mammogram BI-RADS: 0 Indeterminate 2018-07-07 MODESTO Morrow 10:40:00-00:00 BONE DENSITY ASSESSMENT: 07/07/2018 CLINICAL DATA: Post menopaus al and clinical risk for osteoporosis. Z78.0 asymptomatic postmenopausal state. /Z78.0 Asymptomatic Menopausal State DISEASE HISTORY: Cancer history and type 1 diabe alyssa. FINDINGS: Bone density evaluation was performed 07/07/2018 on the right femur neck using a Hologic unit. The BMD average for the exam is 0.670 g/cm2. The T-score is - 1.60 and the Z-score is -0.10. This matches th e World Health Organization' s criteria for osteopenia and places the patient at a medium risk for fracture. An additional bone density e valuation was performed 07/07/2018 on the left femur neck using a Hologic unit. The BMD average for the exam is 0.708 g/cm2. The T-score is -1.30 and the Z-score is 0.30. Thi s matches the World Health O rganization's criteria for osteopenia and places the patient at a medium risk for fracture. An additional bone density e valuation was performed 07/07/2018 on the right total femur area using a Hologic unit. The BMD average for the exam is 0.749 g/cm2. The T-score is -1.60 and the Z-score is -0 .30. This matches the World Health Organization's criteria for osteopenia and places the patient at a medium risk for fracture. An additional bone density e valuation was performed 07/07/2018 on the left total femur area using a Hologic unit. The BMD average for the exam is 0.846 g/cm2. The T-score is -0.80 and the Z-score is 0.5 0. This matches the World He alth Organization's criteria for normal bone density and places the patient within normal limits of fracture risk. An additional bone density e valuation was performed 07/07/2018 on the AP L1-L4 region of spine using a Hologic unit. The BMD average for the exam is 0.781 g/cm2. The T-score is -2.40 and the Z-score is -0.60. This matches the Worl d Health Organization's criteria for osteopenia and places the patient at a medium risk for fracture. FRAX 10 year probability of major osteoporotic fracture is 5.2% and hip fracture is 0.6%. IMPRESSION: OSTEOPENIA Patient is at medium risk fo r fracture. Patient consult w/primary care provider is recommended. This exam was interpreted at [id number] for MAILE Duff 15. Alysha Cruz M.D. ms/penrad:07/07/2018 13:21:38 Electronics Recycler(s): Henny Negrete 2018-07-07 MODESTO Morrow 10:40:00-00:00 BILATERAL DIGITAL SCREENING MAMMOGRAM 3D/2D WITH CAD: 07/07/2018 CLINICAL: /Routine. Current study was evaluated with a Music [employer] d Detection (CAD) system. COMPARISON:No previous mammo grams available for comparison at time of image interpretation. These have been requested. TECHNIQUE: Digital Breast To mosynthesis was performed and utilized for Interpretation. Current study was also evaluated with a Computer Aided Detection (CAD) system. FINDINGS: The tissue of both breasts i s heterogeneously dense, which could obscure detection of small masses. There are benign appearing calcifications in bot h breasts. There is a possible 8 mm ova l mass in the left breast at 11 o'clock middle depth 5 cm from the nipple. No other significant masses, calcifications, or other findings are seen in either breast. IMPRESSION: INCOMPLETE: NEEDS ADDITIONAL IMAGING EVALUATION RECOMMENDATION: Should previous mammograms b ecome available for comparison, an addendum comparison will be generated at no charge to the patient. In the absence of previous mammograms, recommendations are as described: The possible 8 mm oval mass in the left breast is indeterminate. Diagnostic mammography with possible ultrasound are recommended. Bilateral ultrasound should be considered in clinical context of tissue density. [facility] will contact the patient to schedule the additional studies. A supplemental report will be issued following interpretation of the additional studies. Professional services are pr ovided by the [facility]. Denys Galvan M.D., jp/:07/20/2018 08:23:22 Electronics Recycler(s): Henny Negrete letter sent: BI-RADS 0 Mammogram BI-RADS: 0 Indeterminate 2018-07-07 MODESTO Morrow 10:40:00-00:00 BONE DENSITY ASSESSMENT: 07/07/2018 CLINICAL DATA: Post menopaus al and clinical risk for osteoporosis. Z78.0 asymptomatic postmenopausal state. /Z78.0 Asymptomatic Menopausal State DISEASE HISTORY: Cancer history and type 1 diabe alyssa. FINDINGS: Bone density evaluation was performed 07/07/2018 on the right femur neck using a Hologic unit. The BMD average for the exam is 0.670 g/cm2. The T-score is - 1.60 and the Z-score is -0.10. This matches th e World Health Organization' s criteria for osteopenia and places the patient at a medium risk for fracture. An additional bone density e valuation was performed 07/07/2018 on the left femur neck using a Hologic unit. The BMD average for the exam is 0.708 g/cm2. The T-score is -1.30 and the Z-score is 0.30. Thi s matches the World Health O rganization's criteria for osteopenia and places the patient at a medium risk for fracture. An additional bone density e valuation was performed 07/07/2018 on the right total femur area using a Hologic unit. The BMD average for the exam is 0.749 g/cm2. The T-score is -1.60 and the Z-score is -0 .30. This matches the World Health Organization's criteria for osteopenia and places the patient at a medium risk for fracture. An additional bone density e valuation was performed 07/07/2018 on the left total femur area using a Hologic unit. The BMD average for the exam is 0.846 g/cm2. The T-score is -0.80 and the Z-score is 0.5 0. This matches the World He alth Organization's criteria for normal bone density and places the patient within normal limits of fracture risk. An additional bone density e valuation was performed 07/07/2018 on the AP L1-L4 region of spine using a Hologic unit. The BMD average for the exam is 0.781 g/cm2. The T-score is -2.40 and the Z-score is -0.60. This matches the Worl d Health Organization's criteria for osteopenia and places the patient at a medium risk for fracture. FRAX 10 year probability of major osteoporotic fracture is 5.2% and hip fracture is 0.6%. IMPRESSION: OSTEOPENIA Patient is at medium risk fo r fracture. Patient consult w/primary care provider is recommended. This exam was interpreted at [id number] for MODESTO Morrow, MAILE 15. Alysha Cruz M.D. ms/penrad:07/07/2018 13:21:38 Electronics Recycler(s): Henny Negrete 2018-07-07 MODESTO Morrow 10:40:00-00:00 BILATERAL DIGITAL SCREENING MAMMOGRAM 3D/2D WITH CAD: 07/07/2018 CLINICAL: /Routine. Current study was evaluated with a Music [employer] d Detection (CAD) system. COMPARISON:No previous mammo grams available for comparison at time of image interpretation. These have been requested. TECHNIQUE: Digital Breast To mosynthesis was performed and utilized for Interpretation. Current study was also evaluated with a Computer Aided Detection (CAD) system. FINDINGS: The tissue of both breasts i s heterogeneously dense, which could obscure detection of small masses. There are benign appearing calcifications in bot h breasts. There is a possible 8 mm ova l mass in the left breast at 11 o'clock middle depth 5 cm from the nipple. No other significant masses, calcifications, or other findings are seen in either breast. IMPRESSION: INCOMPLETE: NEEDS ADDITIONAL IMAGING EVALUATION RECOMMENDATION: Should previous mammograms b ecome available for comparison, an addendum comparison will be generated at no charge to the patient. In the absence of previous mammograms, recommendations are as described: The possible 8 mm oval mass in the left breast is indeterminate. Diagnostic mammography with possible ultrasound are recommended. Bilateral ultrasound should be considered in clinical context of tissue density. The staff from [facility] with [facility] will contact the patient to schedule the additional studies. A supplemental report will be issued following interpretation of the additional studies. Professional services are pr ovided by the [facility]. Denys Galvan M.D. jany/:07/20/2018 08:23:22 Electronics Recycler(s): Henny Negrete letter sent: BI-RADS 0 Mammogram BI-RADS: 0 Indeterminate 2018-07-07 MODESTO Morrow 10:40:00-00:00 BONE DENSITY ASSESSMENT: 07/07/2018 CLINICAL DATA: Post menopaus al and clinical risk for osteoporosis. Z78.0 asymptomatic postmenopausal state. /Z78.0 Asymptomatic Menopausal State DISEASE HISTORY: Cancer history and type 1 diabe alyssa. FINDINGS: Bone density evaluation was performed 07/07/2018 on the right femur neck using a Hologic unit. The BMD average for the exam is 0.670 g/cm2. The T-score is - 1.60 and the Z-score is -0.10. This matches th e World Health Organization' s criteria for osteopenia and places the patient at a medium risk for fracture. An additional bone density e valuation was performed 07/07/2018 on the left femur neck using a Hologic unit. The BMD average for the exam is 0.708 g/cm2. The T-score is -1.30 and the Z-score is 0.30. Thi s matches the World Health O rganization's criteria for osteopenia and places the patient at a medium risk for fracture. An additional bone density e valuation was performed 07/07/2018 on the right total femur area using a Hologic unit. The BMD average for the exam is 0.749 g/cm2. The T-score is -1.60 and the Z-score is -0 .30. This matches the World Health Organization's criteria for osteopenia and places the patient at a medium risk for fracture. An additional bone density e valuation was performed 07/07/2018 on the left total femur area using a Hologic unit. The BMD average for the exam is 0.846 g/cm2. The T-score is -0.80 and the Z-score is 0.5 0. This matches the World He alth Organization's criteria for normal bone density and places the patient within normal limits of fracture risk. An additional bone density e valuation was performed 07/07/2018 on the AP L1-L4 region of spine using a Hologic unit. The BMD average for the exam is 0.781 g/cm2. The T-score is -2.40 and the Z-score is -0.60. This matches the Worl d Health Organization's criteria for osteopenia and places the patient at a medium risk for fracture. FRAX 10 year probability of major osteoporotic fracture is 5.2% and hip fracture is 0.6%. IMPRESSION: OSTEOPENIA Patient is at medium risk fo r fracture. Patient consult w/primary care provider is recommended. This exam was interpreted at [id number] for MAILE Duff 15. Alysha Cruz M.D. ms/penrad:07/07/2018 13:21:38 Electronics Recycler(s): Henny Negrete 2018-07-07 MODESTO Morrow 10:40:00-00:00 BILATERAL DIGITAL SCREENING MAMMOGRAM 3D/2D WITH CAD: 07/07/2018 CLINICAL: /Routine. Current study was evaluated with a Music [employer] d Detection (CAD) system. COMPARISON:No previous mammo grams available for comparison at time of image interpretation. These have been requested. TECHNIQUE: Digital Breast To mosynthesis was performed and utilized for Interpretation. Current study was also evaluated with a Computer Aided Detection (CAD) system. FINDINGS: The tissue of both breasts i s heterogeneously dense, which could obscure detection of small masses. There are benign appearing calcifications in bot h breasts. There is a possible 8 mm ova l mass in the left breast at 11 o'clock middle depth 5 cm from the nipple. No other significant masses, calcifications, or other findings are seen in either breast. IMPRESSION: INCOMPLETE: NEEDS ADDITIONAL IMAGING EVALUATION RECOMMENDATION: Should previous mammograms b ecome available for comparison, an addendum comparison will be generated at no charge to the patient. In the absence of previous mammograms, recommendations are as described: The possible 8 mm oval mass in the left breast is indeterminate. Diagnostic mammography with possible ultrasound are recommended. Bilateral ultrasound should be considered in clinical context of tissue density. [facility] will contact the patient to schedule the additional studies. A supplemental report will be issued following interpretation of the additional studies. Professional services are pr ovided by the [facility] Diagnostic [facility]. Denys Galvan M.D. jany/:07/20/2018 08:23:22 Electronics Recycler(s): Henny Negrete letter sent: BI-RADS 0 Mammogram BI-RADS: 0 Indeterminate 2018-07-07 MODESTO Morrow 10:40:00-00:00 BONE DENSITY ASSESSMENT: 07/07/2018 CLINICAL DATA: Post menopaus al and clinical risk for osteoporosis. Z78.0 asymptomatic postmenopausal state. /Z78.0 Asymptomatic Menopausal State DISEASE HISTORY: Cancer history and type 1 diabe alyssa. FINDINGS: Bone density evaluation was performed 07/07/2018 on the right femur neck using a Hologic unit. The BMD average for the exam is 0.670 g/cm2. The T-score is - 1.60 and the Z-score is -0.10. This matches th e World Health Organization' s criteria for osteopenia and places the patient at a medium risk for fracture. An additional bone density e valuation was performed 07/07/2018 on the left femur neck using a Hologic unit. The BMD average for the exam is 0.708 g/cm2. The T-score is -1.30 and the Z-score is 0.30. Thi s matches the World Health O rganization's criteria for osteopenia and places the patient at a medium risk for fracture. An additional bone density e valuation was performed 07/07/2018 on the right total femur area using a Hologic unit. The BMD average for the exam is 0.749 g/cm2. The T-score is -1.60 and the Z-score is -0 .30. This matches the World Health Organization's criteria for osteopenia and places the patient at a medium risk for fracture. An additional bone density e valuation was performed 07/07/2018 on the left total femur area using a Hologic unit. The BMD average for the exam is 0.846 g/cm2. The T-score is -0.80 and the Z-score is 0.5 0. This matches the World He alth Organization's criteria for normal bone density and places the patient within normal limits of fracture risk. An additional bone density e valuation was performed 07/07/2018 on the AP L1-L4 region of spine using a Hologic unit. The BMD average for the exam is 0.781 g/cm2. The T-score is -2.40 and the Z-score is -0.60. This matches the Worl d Health Organization's criteria for osteopenia and places the patient at a medium risk for fracture. FRAX 10 year probability of major osteoporotic fracture is 5.2% and hip fracture is 0.6%. IMPRESSION: OSTEOPENIA Patient is at medium risk fo r fracture. Patient consult w/primary care provider is recommended. This exam was interpreted at [id number] for MAILE Duff 15. Alysha Cruz M.D., ms/penrad:07/07/2018 13:21:38 Electronics Recycler(s): Henny Negrete 2018-07-07 MODESTO Morrow 10:40:00-00:00 BILATERAL DIGITAL SCREENING MAMMOGRAM 3D/2D WITH CAD: 07/07/2018 CLINICAL: /Routine. Current study was evaluated with a Music [employer] d Detection (CAD) system. COMPARISON:No previous mammo grams available for comparison at time of image interpretation. These have been requested. TECHNIQUE: Digital Breast To mosynthesis was performed and utilized for Interpretation. Current study was also evaluated with a Computer Aided Detection (CAD) system. FINDINGS: The tissue of both breasts i s heterogeneously dense, which could obscure detection of small masses. There are benign appearing calcifications in bot h breasts. There is a possible 8 mm ova l mass in the left breast at 11 o'clock middle depth 5 cm from the nipple. No other significant masses, calcifications, or other findings are seen in either breast. IMPRESSION: INCOMPLETE: NEEDS ADDITIONAL IMAGING EVALUATION RECOMMENDATION: Should previous mammograms b ecome available for comparison, an addendum comparison will be generated at no charge to the patient. In the absence of previous mammograms, recommendations are as described: The possible 8 mm oval mass in the left breast is indeterminate. Diagnostic mammography with possible ultrasound are recommended. Bilateral ultrasound should be considered in clinical context of tissue density. [facility] will contact the patient to schedule the additional studies. A supplemental report will be issued following interpretation of the additional studies. Professional services are pr [facility] by [facility]. Denys Galvan M.D., jp/:07/20/2018 08:23:22 Electronics Recycler(s): Henny Negrete letter sent: BI-RADS 0 Mammogram BI-RADS: 0 Indeterminate 2018-07-07 MODESTO Morrow 10:40:00-00:00 BONE DENSITY ASSESSMENT: 07/07/2018 CLINICAL DATA: Post menopaus al and clinical risk for osteoporosis. Z78.0 asymptomatic postmenopausal state. /Z78.0 Asymptomatic Menopausal State DISEASE HISTORY: Cancer history and type 1 diabe alyssa. FINDINGS: Bone density evaluation was performed 07/07/2018 on the right femur neck using a Hologic unit. The BMD average for the exam is 0.670 g/cm2. The T-score is - 1.60 and the Z-score is -0.10. This matches t he World Health Organization 's criteria for osteopenia and places the patient at a medium risk for fracture. An additional bone density e valuation was performed 07/07/2018 on the left femur neck using a Hologic unit. The BMD average for the exam is 0.708 g/cm2. The T-score is -1.30 and the Z-score is 0.30. Thi s matches the World Health O rganization's criteria for osteopenia and places the patient at a medium risk for fracture. An additional bone density e valuation was performed 07/07/2018 on the right total femur area using a Hologic unit. The BMD average for the exam is 0.749 g/cm2. The T-score is -1.60 and the Z-score is -0 .30. This matches the World Health Organization's criteria for osteopenia and places the patient at a medium risk for fracture. An additional bone density e valuation was performed 07/07/2018 on the left total femur area using a Hologic unit. The BMD average for the exam is 0.846 g/cm2. The T-score is -0.80 and the Z-score is 0.5 0. This matches the World He alth Organization's criteria for normal bone density and places the patient within normal limits of fracture risk. An additional bone density e valuation was performed 07/07/2018 on the AP L1-L4 region of spine using a Hologic unit. The BMD average for the exam is 0.781 g/cm2. The T-score is -2.40 and the Z-score is -0.60. This matches the Worl d Health Organization's criteria for osteopenia and places the patient at a medium risk for fracture. FRAX 10 year probability of major osteoporotic fracture is 5.2% and hip fracture is 0.6%. IMPRESSION: OSTEOPENIA Patient is at medium risk fo r fracture. Patient consult w/primary care provider is recommended. This exam was interpreted at [id number] for MAILE Duff 15. Alysha Cruz M.D., ms/brittny:07/07/2018 13:21:38 Electronics Recycler(s): Henny Negrete 2018-07-07 SOHEILA [place] 10:40:00-00:00 BILATERAL DIGITAL SCREENING MAMMOGRAM 3D/2D WITH CAD: 07/07/2018 CLINICAL: /Routine. Current study was evaluated with a Music [employer] d Detection (CAD) system. COMPARISON:No previous mammo grams available for comparison at time of image interpretation. These have been requested. TECHNIQUE: Digital Breast To mosynthesis was performed and utilized for Interpretation. Current study was also evaluated with a Computer Aided Detection (CAD) system. FINDINGS: The tissue of both breasts i s heterogeneously dense, which could obscure detection of small masses. There are benign appearing calcifications in bot h breasts. There is a possible 8 mm ova l mass in the left breast at 11 o'clock middle depth 5 cm from the nipple. No other significant masses, calcifications, or other findings are seen in either breast. IMPRESSION: INCOMPLETE: NEEDS ADDITIONAL IMAGING EVALUATION RECOMMENDATION: Should previous mammograms b ecome available for comparison, an addendum comparison will be generated at no charge to the patient. In the absence of previous mammograms, recommendations are as described: The possible 8 mm oval mass in the left breast is indeterminate. Diagnostic mammography with possible ultrasound are recommended. Bilateral ultrasound should be considered in clinical context of tissue density. [facility] will contact the patient to schedule the additional studies. A supplemental report will be issued following interpretation of the additional studies. Professional services are pr ovided by the [facility] Diagnostic [facility]. Denys Galvan M.D. jany/:07/20/2018 08:23:22 Electronics Recycler(s): Henny Negrete [place] letter sent: BI-RADS 0 Mammogram BI-RADS: 0 Indeterminate 2018-07-07 SOHEILA [place] 10:40:00-00:00 BONE DENSITY ASSESSMENT: 07/07/2018 CLINICAL DATA: Post menopaus al and clinical risk for osteoporosis. Z78.0 asymptomatic postmenopausal state. /Z78.0 Asymptomatic Menopausal State DISEASE HISTORY: Cancer history and type 1 diabe alyssa. FINDINGS: Bone density evaluation was performed 07/07/2018 on the right femur neck using a Hologic unit. The BMD average for the exam is 0.670 g/cm2. The T-score is - 1.60 and the Z-score is -0.10. This matches th e World Health Organization' s criteria for osteopenia and places the patient at a medium risk for fracture. An additional bone density e valuation was performed 07/07/2018 on the left femur neck using a Hologic unit. The BMD average for the exam is 0.708 g/cm2. The T-score is -1.30 and the Z-score is 0.30. Thi s matches the World Health O rganization's criteria for osteopenia and places the patient at a medium risk for fracture. An additional bone density e valuation was performed 07/07/2018 on the right total femur area using a Hologic unit. The BMD average for the exam is 0.749 g/cm2. The T-score is -1.60 and the Z-score is -0 .30. This matches the World Health Organization's criteria for osteopenia and places the patient at a medium risk for fracture. An additional bone density e valuation was performed 07/07/2018 on the left total femur area using a Hologic unit. The BMD average for the exam is 0.846 g/cm2. The T-score is -0.80 and the Z-score is 0.5 0. This matches the World He alth Organization's criteria for normal bone density and places the patient within normal limits of fracture risk. An additional bone density e valuation was performed 07/07/2018 on the AP L1-L4 region of spine using a Hologic unit. The BMD average for the exam is 0.781 g/cm2. The T-score is -2.40 and the Z-score is -0.60. This matches the Worl d Health Organization's criteria for osteopenia and places the patient at a medium risk for fracture. FRAX 10 year probability of major osteoporotic fracture is 5.2% and hip fracture is 0.6%. IMPRESSION: OSTEOPENIA Patient is at medium risk fo r fracture. Patient consult w/primary care provider is recommended. This exam was interpreted at [id number] for MAILE Duff 15. Alysha Cruz M.D., ms/brittny:07/07/2018 13:21:38 Electronics Recycler(s): Henny Negrete 2018-07-07 MODESTO Morrow 10:40:00-00:00 BILATERAL DIGITAL SCREENING MAMMOGRAM 3D/2D WITH CAD: 07/07/2018 CLINICAL: /Routine. Current study was evaluated with a Music [employer] d Detection (CAD) system. COMPARISON:No previous mammo grams available for comparison at time of image interpretation. These have been requested. TECHNIQUE: Digital Breast To mosynthesis was performed and utilized for Interpretation. Current study was also evaluated with a Computer Aided Detection (CAD) system. FINDINGS: The tissue of both breasts i s heterogeneously dense, which could obscure detection of small masses. There are benign appearing calcifications in bot h breasts. There is a possible 8 mm ova l mass in the left breast at 11 o'clock middle depth 5 cm from the nipple. No other significant masses, calcifications, or other findings are seen in either breast. IMPRESSION: INCOMPLETE: NEEDS ADDITIONAL IMAGING EVALUATION RECOMMENDATION: Should previous mammograms b ecome available for comparison, an addendum comparison will be generated at no charge to the patient. In the absence of previous mammograms, recommendations are as described: The possible 8 mm oval mass in the left breast is indeterminate. Diagnostic mammography with possible ultrasound are recommended. Bilateral ultrasound should be considered in clinical context of tissue density. The staff from [facility] with [facility] will contact the patient to schedule the additional studies. A supplemental report will be issued following interpretation of the additional studies. Professional services are pr ovided by the [facility] Division of Diagnostic Imaging. Denys Galvan M.D. jany/:07/20/2018 08:23:22 Electronics Recycler(s): Henny Negrete [place] letter sent: BI-RADS 0 Mammogram BI-RADS: 0 Indeterminate 2018-07-07 SOHEILA Morrow 10:40:00-00:00 BONE DENSITY ASSESSMENT: 07/07/2018 CLINICAL DATA: Post menopaus al and clinical risk for osteoporosis. Z78.0 asymptomatic postmenopausal state. /Z78.0 Asymptomatic Menopausal State DISEASE HISTORY: Cancer history and type 1 diabe alyssa. FINDINGS: Bone density evaluation was performed 07/07/2018 on the right femur neck using a Hologic unit. The BMD average for the exam is 0.670 g/cm2. The T-score is - 1.60 and the Z-score is -0.10. This matches th e World Health Organization' s criteria for osteopenia and places the patient at a medium risk for fracture. An additional bone density e valuation was performed 07/07/2018 on the left femur neck using a Hologic unit. The BMD average for the exam is 0.708 g/cm2. The T-score is -1.30 and the Z-score is 0.30. Thi s matches the World Health O rganization's criteria for osteopenia and places the patient at a medium risk for fracture. An additional bone density e valuation was performed 07/07/2018 on the right total femur area using a Hologic unit. The BMD average for the exam is 0.749 g/cm2. The T-score is -1.60 and the Z-score is -0 .30. This matches the World Health Organization's criteria for osteopenia and places the patient at a medium risk for fracture. An additional bone density e valuation was performed 07/07/2018 on the left total femur area using a Hologic unit. The BMD average for the exam is 0.846 g/cm2. The T-score is -0.80 and the Z-score is 0.5 0. This matches the World He alth Organization's criteria for normal bone density and places the patient within normal limits of fracture risk. An additional bone density e valuation was performed 07/07/2018 on the AP L1-L4 region of spine using a Hologic unit. The BMD average for the exam is 0.781 g/cm2. The T-score is -2.40 and the Z-score is -0.60. This matches the Worl d Health Organization's criteria for osteopenia and places the patient at a medium risk for fracture. FRAX 10 year probability of major osteoporotic fracture is 5.2% and hip fracture is 0.6%. IMPRESSION: OSTEOPENIA Patient is at medium risk fo r fracture. Patient consult w/primary care provider is recommended. This exam was interpreted at [id number] for MAILE Duff 15. Alysha Cruz M.D., ms/brittny:07/07/2018 13:21:38 Electronics Recycler(s): Henny Negrete 2018-07-07 MODESTO Morrow 10:40:00-00:00 BILATERAL DIGITAL SCREENING MAMMOGRAM 3D/2D WITH CAD: 07/07/2018 CLINICAL: /Routine. Current study was evaluated with a Music [employer] d Detection (CAD) system. COMPARISON:No previous mammo grams available for comparison at time of image interpretation. These have been requested. TECHNIQUE: Digital Breast To mosynthesis was performed and utilized for Interpretation. Current study was also evaluated with a Computer Aided Detection (CAD) system. FINDINGS: The tissue of both breasts i s heterogeneously dense, which could obscure detection of small masses. There are benign appearing calcifications in bot h breasts. There is a possible 8 mm ova l mass in the left breast at 11 o'clock middle depth 5 cm from the nipple. No other significant masses, calcifications, or other findings are seen in either breast. IMPRESSION: INCOMPLETE: NEEDS ADDITIONAL IMAGING EVALUATION RECOMMENDATION: Should previous mammograms b ecome available for comparison, an addendum comparison will be generated at no charge to the patient. In the absence of previous mammograms, recommendations are as described: The possible 8 mm oval mass in the left breast is indeterminate. Diagnostic mammography with possible ultrasound are recommended. Bilateral ultrasound should be considered in clinical context of tissue density. The staff from [facility] with [facility] will contact the patient to schedule the additional studies. A supplemental report will be issued following interpretation of the additional studies. Professional services are pr ovided by the [facility] Division of Diagnostic Imaging. Denys Galvan M.D. jany/:07/20/2018 08:23:22 Electronics Recycler(s): Henny Negrete letter sent: BI-RADS 0 Mammogram BI-RADS: 0 Indeterminate 2018-07-07 MODESTO Morrow 10:40:00-00:00 BONE DENSITY ASSESSMENT: 07/07/2018 CLINICAL DATA: Post menopaus al and clinical risk for osteoporosis. Z78.0 asymptomatic postmenopausal state. /Z78.0 Asymptomatic Menopausal State DISEASE HISTORY: Cancer history and type 1 diabe alyssa. FINDINGS: Bone density evaluation was performed 07/07/2018 on the right femur neck using a Hologic unit. The BMD average for the exam is 0.670 g/cm2. The T-score is - 1.60 and the Z-score is -0.10. This matches th e World Health Organization' s criteria for osteopenia and places the patient at a medium risk for fracture. An additional bone density e valuation was performed 07/07/2018 on the left femur neck using a Hologic unit. The BMD average for the exam is 0.708 g/cm2. The T-score is -1.30 and the Z-score is 0.30. Thi s matches the World Health O rganization's criteria for osteopenia and places the patient at a medium risk for fracture. An additional bone density e valuation was performed 07/07/2018 on the right total femur area using a Hologic unit. The BMD average for the exam is 0.749 g/cm2. The T-score is -1.60 and the Z-score is -0 .30. This matches the World Health Organization's criteria for osteopenia and places the patient at a medium risk for fracture. An additional bone density e valuation was performed 07/07/2018 on the left total femur area using a Hologic unit. The BMD average for the exam is 0.846 g/cm2. The T-score is -0.80 and the Z-score is 0.5 0. This matches the World He alth Organization's criteria for normal bone density and places the patient within normal limits of fracture risk. An additional bone density e valuation was performed 07/07/2018 on the AP L1-L4 region of spine using a Hologic unit. The BMD average for the exam is 0.781 g/cm2. The T-score is -2.40 and the Z-score is -0.60. This matches the Worl d Health Organization's criteria for osteopenia and places the patient at a medium risk for fracture. FRAX 10 year probability of major osteoporotic fracture is 5.2% and hip fracture is 0.6%. IMPRESSION: OSTEOPENIA Patient is at medium risk fo r fracture. Patient consult w/primary care provider is recommended. This exam was interpreted at [id number] for MAILE Duff 15. Alysha Cruz M.D., ms/brittny:07/07/2018 13:21:38 Electronics Recycler(s): Henny Negrete 2018-07-07 MODESTO Morrow 10:40:00-00:00 BILATERAL DIGITAL SCREENING MAMMOGRAM 3D/2D WITH CAD: 07/07/2018 CLINICAL: /Routine. Current study was evaluated with a Music [employer] d Detection (CAD) system. COMPARISON:No previous mammo grams available for comparison at time of image interpretation. These have been requested. TECHNIQUE: Digital Breast To mosynthesis was performed and utilized for Interpretation. Current study was also evaluated with a Computer Aided Detection (CAD) system. FINDINGS: The tissue of both breasts i s heterogeneously dense, which could obscure detection of small masses. There are benign appearing calcifications in bot h breasts. There is a possible 8 mm ova l mass in the left breast at 11 o'clock middle depth 5 cm from the nipple. No other significant masses, calcifications, or other findings are seen in either breast. IMPRESSION: INCOMPLETE: NEEDS ADDITIONAL IMAGING EVALUATION RECOMMENDATION: Should previous mammograms b ecome available for comparison, an addendum comparison will be generated at no charge to the patient. In the absence of previous mammograms, recommendations are as described: The possible 8 mm oval mass in the left breast is indeterminate. Diagnostic mammography with possible ultrasound are recommended. Bilateral ultrasound should be considered in clinical context of tissue density. [facility] will contact the patient to schedule the additional studies. A supplemental report will be issued following interpretation of the additional studies. Professional services are pr ovided by the [facility] Division of Diagnostic Imaging. Denys Galvan M.D. jany/:07/20/2018 08:23:22 Electronics Recycler(s): Henny Negrete letter sent: BI-RADS 0 Mammogram BI-RADS: 0 Indeterminate 2018-07-07 MODESTO Morrow 10:40:00-00:00 BONE DENSITY ASSESSMENT: 07/07/2018 CLINICAL DATA: Post menopaus al and clinical risk for osteoporosis. Z78.0 asymptomatic postmenopausal state. /Z78.0 Asymptomatic Menopausal State DISEASE HISTORY: Cancer history and type 1 diabe alyssa. FINDINGS: Bone density evaluation was performed 07/07/2018 on the right femur neck using a Hologic unit. The BMD average for the exam is 0.670 g/cm2. The T-score is - 1.60 and the Z-score is -0.10. This matches th e World Health Organization' s criteria for osteopenia and places the patient at a medium risk for fracture. An additional bone density e valuation was performed 07/07/2018 on the left femur neck using a Hologic unit. The BMD average for the exam is 0.708 g/cm2. The T-score is -1.30 and the Z-score is 0.30. Thi s matches the World Health O rganization's criteria for osteopenia and places the patient at a medium risk for fracture. An additional bone density e valuation was performed 07/07/2018 on the right total femur area using a Hologic unit. The BMD average for the exam is 0.749 g/cm2. The T-score is -1.60 and the Z-score is -0 .30. This matches the World Health Organization's criteria for osteopenia and places the patient at a medium risk for fracture. An additional bone density e valuation was performed 07/07/2018 on the left total femur area using a Hologic unit. The BMD average for the exam is 0.846 g/cm2. The T-score is -0.80 and the Z-score is 0.5 0. This matches the World He alth Organization's criteria for normal bone density and places the patient within normal limits of fracture risk. An additional bone density e valuation was performed 07/07/2018 on the AP L1-L4 region of spine using a Hologic unit. The BMD average for the exam is 0.781 g/cm2. The T-score is -2.40 and the Z-score is -0.60. This matches the Worl d Health Organization's criteria for osteopenia and places the patient at a medium risk for fracture. FRAX 10 year probability of major osteoporotic fracture is 5.2% and hip fracture is 0.6%. IMPRESSION: OSTEOPENIA Patient is at medium risk fo r fracture. Patient consult w/primary care provider is recommended. This exam was interpreted at [id number] for MAILE Duff 15. Alysha Cruz M.D., ms/brittny:07/07/2018 13:21:38 Electronics Recycler(s): Henny Negrete 2018-07-07 MODESTO Morrow 10:40:00-00:00 BILATERAL DIGITAL SCREENING MAMMOGRAM 3D/2D WITH CAD: 07/07/2018 CLINICAL: /Routine. Current study was evaluated with a [employer] d Detection (CAD) system. COMPARISON:No previous mammo grams available for comparison at time of image interpretation. These have been requested. TECHNIQUE: Digital Breast To mosynthesis was performed and utilized for Interpretation. Current study was also evaluated with a Computer Aided Detection (CAD) system. FINDINGS: The tissue of both breasts i s heterogeneously dense, which could obscure detection of small masses. There are benign appearing calcifications in bot h breasts. There is a possible 8 mm ova l mass in the left breast at 11 o'clock middle depth 5 cm from the nipple. No other significant masses, calcifications, or other findings are seen in either breast. IMPRESSION: INCOMPLETE: NEEDS ADDITIONAL IMAGING EVALUATION RECOMMENDATION: Should previous mammograms b ecome available for comparison, an addendum comparison will be generated at no charge to the patient. In the absence of previous mammograms, recommendations are as described: The possible 8 mm oval mass in the left breast is indeterminate. Diagnostic mammography with possible ultrasound are recommended. Bilateral ultrasound should be considered in clinical context of tissue density. The staff from [facility] with [facility] will contact the patient to schedule the additional studies. A supplemental report will be issued following interpretation of the additional studies. Professional services are pr ovided by the [facility] Division of Diagnostic Imaging. Denys Galvan M.D. jany/:07/20/2018 08:23:22 Electronics Recycler(s): Henny Negrete letter sent: BI-RADS 0 Mammogram BI-RADS: 0 Indeterminate 2018-07-07 SOHEILA Morrow 10:40:00-00:00 BONE DENSITY ASSESSMENT: 07/07/2018 CLINICAL DATA: Post menopaus al and clinical risk for osteoporosis. Z78.0 asymptomatic postmenopausal state. /Z78.0 Asymptomatic Menopausal State DISEASE HISTORY: Cancer history and type 1 diabe alyssa. FINDINGS: Bone density evaluation was performed 07/07/2018 on the right femur neck using a Hologic unit. The BMD average for the exam is 0.670 g/cm2. The T-score is - 1.60 and the Z-score is -0.10. This matches th e World Health Organization' s criteria for osteopenia and places the patient at a medium risk for fracture. An additional bone density e valuation was performed 07/07/2018 on the left femur neck using a Hologic unit. The BMD average for the exam is 0.708 g/cm2. The T-score is -1.30 and the Z-score is 0.30. Thi s matches the World Health O rganization's criteria for osteopenia and places the patient at a medium risk for fracture. An additional bone density e valuation was performed 07/07/2018 on the right total femur area using a Hologic unit. The BMD average for the exam is 0.749 g/cm2. The T-score is -1.60 and the Z-score is -0 .30. This matches the World Health Organization's criteria for osteopenia and places the patient at a medium risk for fracture. An additional bone density e valuation was performed 07/07/2018 on the left total femur area using a Hologic unit. The BMD average for the exam is 0.846 g/cm2. The T-score is -0.80 and the Z-score is 0.5 0. This matches the World He alth Organization's criteria for normal bone density and places the patient within normal limits of fracture risk. An additional bone density e valuation was performed 07/07/2018 on the AP L1-L4 region of spine using a Hologic unit. The BMD average for the exam is 0.781 g/cm2. The T-score is -2.40 and the Z-score is -0.60. This matches the Worl d Health Organization's criteria for osteopenia and places the patient at a medium risk for fracture. FRAX 10 year probability of major osteoporotic fracture is 5.2% and hip fracture is 0.6%. IMPRESSION: OSTEOPENIA Patient is at medium risk fo r fracture. Patient consult w/primary care provider is recommended. This exam was interpreted at [id number] for MAILE Duff 15. Alysha Cruz M.D., ms/penrad:07/07/2018 13:21:38 Electronics Recycler(s): Henny Negrete 2018-07-07 MODESTO Morrow 10:40:00-00:00 BILATERAL DIGITAL SCREENING MAMMOGRAM 3D/2D WITH CAD: 07/07/2018 CLINICAL: /Routine. Current study was evaluated with a Music [employer] d Detection (CAD) system. COMPARISON:No previous mammo grams available for comparison at time of image interpretation. These have been requested. TECHNIQUE: Digital Breast To mosynthesis was performed and utilized for Interpretation. Current study was also evaluated with a Computer Aided Detection (CAD) system. FINDINGS: The tissue of both breasts i s heterogeneously dense, which could obscure detection of small masses. There are benign appearing calcifications in bot h breasts. There is a possible 8 mm ova l mass in the left breast at 11 o'clock middle depth 5 cm from the nipple. No other significant masses, calcifications, or other findings are seen in either breast. IMPRESSION: INCOMPLETE: NEEDS ADDITIONAL IMAGING EVALUATION RECOMMENDATION: Should previous mammograms b ecome available for comparison, an addendum comparison will be generated at no charge to the patient. In the absence of previous mammograms, recommendations are as described: The possible 8 mm oval mass in the left breast is indeterminate. Diagnostic mammography with possible ultrasound are recommended. Bilateral ultrasound should be considered in clinical context of tissue density. The staff from [facility] with [facility] will contact the patient to schedule the additional studies. A supplemental report will be issued following interpretation of the additional studies. Professional services are pr ovided by the [facility]. Denys Galvan M.D. jany/:07/20/2018 08:23:22 Electronics Recycler(s): Henny Negrete letter sent: BI-RADS 0 Mammogram BI-RADS: 0 Indeterminate 2018-07-07 SOHEILA Morrow 10:40:00-00:00 BONE DENSITY ASSESSMENT: 07/07/2018 CLINICAL DATA: Post menopaus al and clinical risk for osteoporosis. Z78.0 asymptomatic postmenopausal state. /Z78.0 Asymptomatic Menopausal State DISEASE HISTORY: Cancer history and type 1 diabe alyssa. FINDINGS: Bone density evaluation was performed 07/07/2018 on the right femur neck using a Hologic unit. The BMD average for the exam is 0.670 g/cm2. The T-score is - 1.60 and the Z-score is -0.10. This matches th e World Health Organization' s criteria for osteopenia and places the patient at a medium risk for fracture. An additional bone density e valuation was performed 07/07/2018 on the left femur neck using a Hologic unit. The BMD average for the exam is 0.708 g/cm2. The T-score is -1.30 and the Z-score is 0.30. Thi s matches the World Health O rganization's criteria for osteopenia and places the patient at a medium risk for fracture. An additional bone density e valuation was performed 07/07/2018 on the right total femur area using a Hologic unit. The BMD average for the exam is 0.749 g/cm2. The T-score is -1.60 and the Z-score is -0 .30. This matches the World Health Organization's criteria for osteopenia and places the patient at a medium risk for fracture. An additional bone density e valuation was performed 07/07/2018 on the left total femur area using a Hologic unit. The BMD average for the exam is 0.846 g/cm2. The T-score is -0.80 and the Z-score is 0.5 0. This matches the World He alth Organization's criteria for normal bone density and places the patient within normal limits of fracture risk. An additional bone density e valuation was performed 07/07/2018 on the AP L1-L4 region of spine using a Hologic unit. The BMD average for the exam is 0.781 g/cm2. The T-score is -2.40 and the Z-score is -0.60. This matches the Worl d Health Organization's criteria for osteopenia and places the patient at a medium risk for fracture. FRAX 10 year probability of major osteoporotic fracture is 5.2% and hip fracture is 0.6%. IMPRESSION: OSTEOPENIA Patient is at medium risk fo r fracture. Patient consult w/primary care provider is recommended. This exam was interpreted at [id number] for MAILE Duff 15. Alysha Cruz M.D., ms/brittny:07/07/2018 13:21:38 Electronics Recycler(s): Henny Negrete 2018-07-07 MODESTO Morrow 10:40:00-00:00 BILATERAL DIGITAL SCREENING MAMMOGRAM 3D/2D WITH CAD: 07/07/2018 CLINICAL: /Routine. Current study was evaluated with a Music [employer] d Detection (CAD) system. COMPARISON:No previous mammo grams available for comparison at time of image interpretation. These have been requested. TECHNIQUE: Digital Breast To mosynthesis was performed and utilized for Interpretation. Current study was also evaluated with a Computer Aided Detection (CAD) system. FINDINGS: The tissue of both breasts i s heterogeneously dense, which could obscure detection of small masses. There are benign appearing calcifications in bot h breasts. There is a possible 8 mm ova l mass in the left breast at 11 o'clock middle depth 5 cm from the nipple. No other significant masses, calcifications, or other findings are seen in either breast. IMPRESSION: INCOMPLETE: NEEDS ADDITIONAL IMAGING EVALUATION RECOMMENDATION: Should previous mammograms b ecome available for comparison, an addendum comparison will be generated at no charge to the patient. In the absence of previous mammograms, recommendations are as described: The possible 8 mm oval mass in the left breast is indeterminate. Diagnostic mammography with possible ultrasound are recommended. Bilateral ultrasound should be considered in clinical context of tissue density. The staff from [facility] with [facility] will contact the patient to schedule the additional studies. A supplemental report will be issued following interpretation of the additional studies. Professional services are pr ovided by the [facility] Division of Diagnostic Imaging. Denys Galvan M.D. jany/:07/20/2018 08:23:22 Electronics Recycler(s): Henny Negrete letter sent: BI-RADS 0 Mammogram BI-RADS: 0 Indeterminate 2018-07-07 MODESTO Morrow 10:40:00-00:00 BONE DENSITY ASSESSMENT: 07/07/2018 CLINICAL DATA: Post menopaus al and clinical risk for osteoporosis. Z78.0 asymptomatic postmenopausal state. /Z78.0 Asymptomatic Menopausal State DISEASE HISTORY: Cancer history and type 1 diabe alyssa. FINDINGS: Bone density evaluation was performed 07/07/2018 on the right femur neck using a Hologic unit. The BMD average for the exam is 0.670 g/cm2. The T-score is - 1.60 and the Z-score is -0.10. This matches th e World Health Organization' s criteria for osteopenia and places the patient at a medium risk for fracture. An additional bone density e valuation was performed 07/07/2018 on the left femur neck using a Hologic unit. The BMD average for the exam is 0.708 g/cm2. The T-score is -1.30 and the Z-score is 0.30. Thi s matches the World Health O rganization's criteria for osteopenia and places the patient at a medium risk for fracture. An additional bone density e valuation was performed 07/07/2018 on the right total femur area using a Hologic unit. The BMD average for the exam is 0.749 g/cm2. The T-score is -1.60 and the Z-score is -0 .30. This matches the World Health Organization's criteria for osteopenia and places the patient at a medium risk for fracture. An additional bone density e valuation was performed 07/07/2018 on the left total femur area using a Hologic unit. The BMD average for the exam is 0.846 g/cm2. The T-score is -0.80 and the Z-score is 0.5 0. This matches the World He alth Organization's criteria for normal bone density and places the patient within normal limits of fracture risk. An additional bone density e valuation was performed 07/07/2018 on the AP L1-L4 region of spine using a Hologic unit. The BMD average for the exam is 0.781 g/cm2. The T-score is -2.40 and the Z-score is -0.60. This matches the Worl Health Organization's criteria for osteopenia and places the patient at a medium risk for fracture. FRAX 10 year probability of major osteoporotic fracture is 5.2% and hip fracture is 0.6%. IMPRESSION: OSTEOPENIA Patient is at medium risk fo r fracture. Patient consult w/primary care provider is recommended. This exam was interpreted at [id number] for MAILE Duff 15. Alysha Cruz M.D., ms/brittny:07/07/2018 13:21:38 Electronics Recycler(s): Henny Negrete 2018-07-07 MODESTO Morrow 10:40:00-00:00 BILATERAL DIGITAL SCREENING MAMMOGRAM 3D/2D WITH CAD: 07/07/2018 CLINICAL: /Routine. Current study was evaluated with a Music [employer] d Detection (CAD) system. COMPARISON:No previous mammo grams available for comparison at time of image interpretation. These have been requested. TECHNIQUE: Digital Breast To mosynthesis was performed and utilized for Interpretation. Current study was also evaluated with a Computer Aided Detection (CAD) system. FINDINGS: The tissue of both breasts i s heterogeneously dense, which could obscure detection of small masses. There are benign appearing calcifications in bot h breasts. There is a possible 8 mm ova l mass in the left breast at 11 o'clock middle depth 5 cm from the nipple. No other significant masses, calcifications, or other findings are seen in either breast. IMPRESSION: INCOMPLETE: NEEDS ADDITIONAL IMAGING EVALUATION RECOMMENDATION: Should previous mammograms b ecome available for comparison, an addendum comparison will be generated at no charge to the patient. In the absence of previous mammograms, recommendations are as described: The possible 8 mm oval mass in the left breast is indeterminate. Diagnostic mammography with possible ultrasound are recommended. Bilateral ultrasound should be considered in clinical context of tissue density. [facility] will contact the patient to schedule the additional studies. A supplemental report will be issued following interpretation of the additional studies. Professional services are pr ovided by the [facility] Division of Diagnostic Imaging. Denys Galvan M.D. jany/:07/20/2018 08:23:22 Electronics Recycler(s): Henny Negrete letter sent: BI-RADS 0 Mammogram BI-RADS: 0 Indeterminate 2018-07-07 MODESTO Morrow 10:40:00-00:00 BONE DENSITY ASSESSMENT: 07/07/2018 CLINICAL DATA: Post menopaus al and clinical risk for osteoporosis. Z78.0 asymptomatic postmenopausal state. /Z78.0 Asymptomatic Menopausal State DISEASE HISTORY: Cancer history and type 1 diabe alyssa. FINDINGS: Bone density evaluation was performed 07/07/2018 on the right femur neck using a Hologic unit. The BMD average for the exam is 0.670 g/cm2. The T-score is - 1.60 and the Z-score is -0.10. This matches th e World Health Organization' s criteria for osteopenia and places the patient at a medium risk for fracture. An additional bone density e valuation was performed 07/07/2018 on the left femur neck using a Hologic unit. The BMD average for the exam is 0.708 g/cm2. The T-score is -1.30 and the Z-score is 0.30. Thi s matches the World Health O rganization's criteria for osteopenia and places the patient at a medium risk for fracture. An additional bone density e valuation was performed 07/07/2018 on the right total femur area using a Hologic unit. The BMD average for the exam is 0.749 g/cm2. The T-score is -1.60 and the Z-score is -0 .30. This matches the World Health Organization's criteria for osteopenia and places the patient at a medium risk for fracture. An additional bone density e valuation was performed 07/07/2018 on the left total femur area using a Hologic unit. The BMD average for the exam is 0.846 g/cm2. The T-score is -0.80 and the Z-score is 0. 50. This matches the World H ealth Organization's criteria for normal bone density and places the patient within normal limits of fracture risk. An additional bone density e valuation was performed 07/07/2018 on the AP L1-L4 region of spine using a Hologic unit. The BMD average for the exam is 0.781 g/cm2. The T-score is -2.40 and the Z-score is -0.60. This matches the Worl d Health Organization's criteria for osteopenia and places the patient at a medium risk for fracture. FRAX 10 year probability of major osteoporotic fracture is 5.2% and hip fracture is 0.6%. IMPRESSION: OSTEOPENIA Patient is at medium risk fo r fracture. Patient consult w/primary care provider is recommended. This exam was interpreted at [id number] for MAILE Duff 13. Alysha Cruz M.D., ms/brittny:07/07/2018 13:21:38 Electronics Recycler(s): Henny Negrete 2018-07-07 MODESTO Morrow 10:40:00-00:00 BILATERAL DIGITAL SCREENING MAMMOGRAM 3D/2D WITH CAD: 07/07/2018 CLINICAL: /Routine. Current study was evaluated with a [employer] d Detection (CAD) system. COMPARISON:No previous mammo grams available for comparison at time of image interpretation. These have been requested. TECHNIQUE: Digital Breast To mosynthesis was performed and utilized for Interpretation. Current study was also evaluated with a Computer Aided Detection (CAD) system. FINDINGS: The tissue of both breasts i s heterogeneously dense, which could obscure detection of small masses. There are benign appearing calcifications in bot h breasts. There is a possible 8 mm ova l mass in the left breast at 11 o'clock middle depth 5 cm from the nipple. No other significant masses, calcifications, or other findings are seen in either breast. IMPRESSION: INCOMPLETE: NEEDS ADDITIONAL IMAGING EVALUATION RECOMMENDATION: Should previous mammograms b ecome available for comparison, an addendum comparison will be generated at no charge to the patient. In the absence of previous mammograms, recommendations are as described: The possible 8 mm oval mass in the left breast is indeterminate. Diagnostic mammography with possible ultrasound are recommended. Bilateral ultrasound should be considered in clinical context of tissue density. The staff from [facility] will contact the patient to schedule the additional studies. A supplemental report will be issued following interpretation of the additional studies. Professional services are pr ovided by the [facility]. Denys Galvan M.D. jany/:07/20/2018 08:23:22 Electronics Recycler(s): Henny Negrete letter sent: BI-RADS 0 Mammogram BI-RADS: 0 Indeterminate 2018-07-07 SOHEILA Morrow 10:40:00-00:00 BONE DENSITY ASSESSMENT: 07/07/2018 CLINICAL DATA: Post menopaus al and clinical risk for osteoporosis. Z78.0 asymptomatic postmenopausal state. /Z78.0 Asymptomatic Menopausal State DISEASE HISTORY: Cancer history and type 1 diabe alyssa. FINDINGS: Bone density evaluation was performed 07/07/2018 on the right femur neck using a Hologic unit. The BMD average for the exam is 0.670 g/cm2. The T-score is - 1.60 and the Z-score is -0.10. This matches th e World Health Organization' s criteria for osteopenia and places the patient at a medium risk for fracture. An additional bone density e valuation was performed 07/07/2018 on the left femur neck using a Hologic unit. The BMD average for the exam is 0.708 g/cm2. The T-score is -1.30 and the Z-score is 0.30. Thi s matches the World Health O rganization's criteria for osteopenia and places the patient at a medium risk for fracture. An additional bone density e valuation was performed 07/07/2018 on the right total femur area using a Hologic unit. The BMD average for the exam is 0.749 g/cm2. The T-score is -1.60 and the Z-score is -0 .30. This matches the World Health Organization's criteria for osteopenia and places the patient at a medium risk for fracture. An additional bone density e valuation was performed 07/07/2018 on the left total femur area using a Hologic unit. The BMD average for the exam is 0.846 g/cm2. The T-score is -0.80 and the Z-score is 0.5 0. This matches the World He alth Organization's criteria for normal bone density and places the patient within normal limits of fracture risk. An additional bone density e valuation was performed 07/07/2018 on the AP L1-L4 region of spine using a Hologic unit. The BMD average for the exam is 0.781 g/cm2. The T-score is -2.40 and the Z-score is -0.60. This matches the [facility]'s criteria for osteopenia and places the patient at a medium risk for fracture. FRAX 10 year probability of major osteoporotic fracture is 5.2% and hip fracture is 0.6%. IMPRESSION: OSTEOPENIA Patient is at medium risk fo r fracture. Patient consult w/primary care provider is recommended. This exam was interpreted at [id number] for MAILE Duff 13. Alysha Cruz M.D. ms/penrad:07/07/2018 13:21:38 Electronics Recycler(s): Henny Negrete 2015-10-14 EXAM: XR CERVICAL SPINE 2 VIEWS [facility] 16:45:00-00:00 DATE: 10/13/2015 12:[address] INDICATION: Fracture COMPARISON: Cervical spine magnetic resonance im aging 10/13/2015 TECHNIQUE: AP and lateral ra diographs of the cervical spine show from the skull base through T1. DISCUSSION: Satisfactory ali gnment of cervical spine. Interval performance of discectomy with anterior spinal fusion at C5-7. No hardware complication. Mild prevertebral soft tissue edema. IMPRESSION: Satisfactory appearance post discectomy and ante rior spinal fusion at C5-7. 2015-10-14 EXAM: XR CERVICAL SPINE 2 VIEWS [facility] 16:45:00-00:00 DATE: 10/13/2015 12:[address] INDICATION: Fracture COMPARISON: Cervical spine magnetic resonance [facility] 10/13/2015 TECHNIQUE: AP and lateral ra diographs of the cervical spine show from the skull base through T1. DISCUSSION: Satisfactory ali gnment of cervical spine. Interval performance of discectomy with anterior spinal fusion at C5-7. No hardware complication. Mild prevertebral soft tissue edema. IMPRESSION: Satisfactory appearance post discectomy and ante rior spinal fusion at C5-7. 2015-10-14 EXAM: XR CERVICAL SPINE 2 VIEWS [facility] 16:45:00-00:00 DATE: 10/13/2015 12:[address] INDICATION: Fracture COMPARISON: Cervical spine magnetic resonance [facility] 10/13/2015 TECHNIQUE: AP and lateral ra diographs of the cervical spine show from the skull base through T1. DISCUSSION: Satisfactory ali gnment of cervical spine. Interval performance of discectomy with anterior spinal fusion at C5-7. No hardware complication. Mild prevertebral soft tissue edema. IMPRESSION: Satisfactory appearance post discectomy and ante rior spinal fusion at C5-7. 2015-10-14 EXAM: XR CERVICAL SPINE 2 VIEWS [facility] 16:45:00-00:00 DATE: 10/13/2015 12:[address] INDICATION: Fracture COMPARISON: Cervical spine magnetic resonance [facility] 10/13/2015 TECHNIQUE: AP and lateral ra diographs of the cervical spine show from the skull base through T1. DISCUSSION: Satisfactory ali gnment of cervical spine. Interval performance of discectomy with anterior spinal fusion at C5-7. No hardware complication. Mild prevertebral soft tissue edema. IMPRESSION: Satisfactory appearance post discectomy and ante rior spinal fusion at C5-7. 2015-10-14 EXAM: XR CERVICAL SPINE 2 VIEWS [facility] 16:45:00-00:00 DATE: 10/13/2015 12:[address] INDICATION: Fracture COMPARISON: Cervical spine magnetic resonance [facility] 10/13/2015 TECHNIQUE: AP and lateral ra diographs of the cervical spine show from the skull base through T1. DISCUSSION: Satisfactory ali gnment of cervical spine. Interval performance of discectomy with anterior spinal fusion at C5-7. No hardware complication. Mild prevertebral soft tissue edema. IMPRESSION: Satisfactory appearance post discectomy and ante rior spinal fusion at C5-7. 2015-10-14 EXAM: XR CERVICAL SPINE 2 VIEWS [facility] 16:45:00-00:00 DATE: 10/13/2015 12:[address] INDICATION: Fracture COMPARISON: Cervical spine magnetic resonance [facility] 10/13/2015 TECHNIQUE: AP and lateral ra diographs of the cervical spine show from the skull base through T1. DISCUSSION: Satisfactory ali gnment of cervical spine. Interval performance of discectomy with anterior spinal fusion at C5-7. No hardware complication. Mild prevertebral soft tissue edema. IMPRESSION: Satisfactory appearance post discectomy and ante rior spinal fusion at C5-7. 2015-10-14 EXAM: XR CERVICAL SPINE 2 VIEWS [facility] 16:45:00-00:00 DATE: 10/13/2015 12:[address] INDICATION: Fracture COMPARISON: Cervical spine magnetic resonance [facility] 10/13/2015 TECHNIQUE: AP and lateral ra diographs of the cervical spine show from the skull base through T1. DISCUSSION: Satisfactory ali gnment of cervical spine. Interval performance of discectomy with anterior spinal fusion at C5-7. No hardware complication. Mild prevertebral soft tissue edema. IMPRESSION: Satisfactory appearance post discectomy and ante rior spinal fusion at C5-7. 2015-10-14 EXAM: XR CERVICAL SPINE 2 VIEWS [facility] 16:45:00-00:00 DATE: 10/13/2015 12:[address] INDICATION: Fracture COMPARISON: Cervical spine magnetic resonance [facility] 10/13/2015 TECHNIQUE: AP and lateral ra diographs of the cervical spine show from the skull base through T1. DISCUSSION: Satisfactory ali gnment of cervical spine. Interval performance of discectomy with anterior spinal fusion at C5-7. No hardware complication. Mild prevertebral soft tissue edema. IMPRESSION: Satisfactory appearance post discectomy and ante rior spinal fusion at C5-7. 2015-10-14 EXAM: XR CERVICAL SPINE 2 VIEWS [facility] 16:45:00-00:00 DATE: 10/13/2015 12:[address] INDICATION: Fracture COMPARISON: Cervical spine magnetic resonance [facility] 10/13/2015 TECHNIQUE: AP and lateral ra diographs of the cervical spine show from the skull base through T1. DISCUSSION: Satisfactory ali gnment of cervical spine. Interval performance of discectomy with anterior spinal fusion at C5-7. No hardware complication. Mild prevertebral soft tissue edema. IMPRESSION: Satisfactory appearance post discectomy and ante rior spinal fusion at C5-7. 2015-10-14 EXAM: XR CERVICAL SPINE 2 VIEWS [facility] 16:45:00-00:00 DATE: 10/13/2015 12:[address] INDICATION: Fracture COMPARISON: Cervical spine magnetic resonance [facility] 10/13/2015 TECHNIQUE: AP and lateral ra diographs of the cervical spine show from the skull base through T1. DISCUSSION: Satisfactory ali gnment of cervical spine. Interval performance of discectomy with anterior spinal fusion at C5-7. No hardware complication. Mild prevertebral soft tissue edema. IMPRESSION: Satisfactory appearance post discectomy and ante rior spinal fusion at C5-7. 2015-10-14 EXAM: XR CERVICAL SPINE 2 VIEWS [facility] 16:45:00-00:00 DATE: 10/13/2015 12:[address] INDICATION: Fracture COMPARISON: Cervical spine magnetic resonance [facility] 10/13/2015 TECHNIQUE: AP and lateral ra diographs of the cervical spine show from the skull base through T1. DISCUSSION: Satisfactory ali gnment of cervical spine. Interval performance of discectomy with anterior spinal fusion at C5-7. No hardware complication. Mild prevertebral soft tissue edema. IMPRESSION: Satisfactory appearance post discectomy and ante rior spinal fusion at C5-7. 2015-10-14 EXAM: XR CERVICAL SPINE 2 VIEWS [facility] 16:45:00-00:00 DATE: 10/13/2015 12:[address] INDICATION: Fracture COMPARISON: Cervical spine magnetic resonance [facility] 10/13/2015 TECHNIQUE: AP and lateral ra diographs of the cervical spine show from the skull base through T1. DISCUSSION: Satisfactory ali gnment of cervical spine. Interval performance of discectomy with anterior spinal fusion at C5-7. No hardware complication. Mild prevertebral soft tissue edema. IMPRESSION: Satisfactory appearance post discectomy and ante rior spinal fusion at C5-7. 2015-10-14 EXAM: XR CERVICAL SPINE 2 VIEWS [facility] 16:45:00-00:00 DATE: 10/13/2015 12:[address] INDICATION: Fracture COMPARISON: Cervical spine magnetic resonance [facility] 10/13/2015 TECHNIQUE: AP and lateral ra diographs of the cervical spine show from the skull base through T1. DISCUSSION: Satisfactory ali gnment of cervical spine. Interval performance of discectomy with anterior spinal fusion at C5-7. No hardware complication. Mild prevertebral soft tissue edema. IMPRESSION: Satisfactory appearance post discectomy and ante rior spinal fusion at C5-7. 2015-10-14 EXAM: XR CERVICAL SPINE 2 VIEWS [facility] 16:45:00-00:00 DATE: 10/13/2015 12:[address] INDICATION: Fracture COMPARISON: Cervical spine magnetic resonance [facility] 10/13/2015 TECHNIQUE: AP and lateral ra diographs of the cervical spine show from the skull base through T1. DISCUSSION: Satisfactory ali gnment of cervical spine. Interval performance of discectomy with anterior spinal fusion at C5-7. No hardware complication. Mild prevertebral soft tissue edema. IMPRESSION: Satisfactory appearance post discectomy and ante rior spinal fusion at C5-7. 2015-10-14 EXAM: XR CERVICAL SPINE 2 VIEWS [facility] 16:45:00-00:00 DATE: 10/13/2015 12:[address] INDICATION: Fracture COMPARISON: Cervical spine magnetic resonance [facility] 10/13/2015 TECHNIQUE: AP and lateral ra diographs of the cervical spine show from the skull base through T1. DISCUSSION: Satisfactory ali gnment of cervical spine. Interval performance of discectomy with anterior spinal fusion at C5-7. No hardware complication. Mild prevertebral soft tissue edema. IMPRESSION: Satisfactory appearance post discectomy and ante rior spinal fusion at C5-7. 2015-10-14 EXAM: XR CERVICAL SPINE 2 VIEWS [facility] 16:45:00-00:00 DATE: 10/13/2015 12:[address] INDICATION: Fracture COMPARISON: Cervical spine magnetic resonance [facility] 10/13/2015 TECHNIQUE: AP and lateral ra diographs of the cervical spine show from the skull base through T1. DISCUSSION: Satisfactory ali gnment of cervical spine. Interval performance of discectomy with anterior spinal fusion at C5-7. No hardware complication. Mild prevertebral soft tissue edema. IMPRESSION: Satisfactory appearance post discectomy and ante rior spinal fusion at C5-7. 2015-10-14 EXAM: XR CERVICAL SPINE 2 VIEWS [facility] 16:45:00-00:00 DATE: 10/13/2015 12:[address] INDICATION: Fracture COMPARISON: Cervical spine magnetic resonance [facility] 10/13/2015 TECHNIQUE: AP and lateral ra diographs of the cervical spine show from the skull base through T1. DISCUSSION: Satisfactory ali gnment of cervical spine. Interval performance of discectomy with anterior spinal fusion at C5-7. No hardware complication. Mild prevertebral soft tissue edema. IMPRESSION: Satisfactory appearance post discectomy and ante rior spinal fusion at C5-7. 2015-10-14 EXAM: XR CERVICAL SPINE 2 VIEWS [facility] 16:45:00-00:00 DATE: 10/13/2015 12:[address] INDICATION: Fracture COMPARISON: Cervical spine magnetic resonance im aging 10/13/2015 TECHNIQUE: AP and lateral ra diographs of the cervical spine show from the skull base through T1. DISCUSSION: Satisfactory ali gnment of cervical spine. Interval performance of discectomy with anterior spinal fusion at C5-7. No hardware complication. Mild prevertebral soft tissue edema. IMPRESSION: Satisfactory appearance post discectomy and ante rior spinal fusion at C5-7. 2015-10-13 EXAM: MRI CERVICAL SPINE WITHOUT CONTRAST [facility] 05:15:00-00:00 DATE: 10/13/2015 Center INDICATION: Numbness COMPARISON: Cervical spine CT dated 10/12/2015 TECHNIQUE: Multiplanar, mult isequence noncontrast MR imaging of the cervical spine. IV contrast: None. FINDINGS: Vertebrae: The craniocervica l junction is normal. The height and alignment of the vertebral bodies are normal. Disks and neuroforamina: Degenerative changes ar e present at multiple levels: * C2-C3: The spinal canal and the neural foramin a are patent. * C3-C4: There is uncoverteb ral joint hypertrophy on the right, not causing stenosis of the neural foramina. * C4-C5: There is neural for aminal stenosis on the right, not causing neural foraminal stenosis. * C5-C6: There is a disc ost eophyte complexes and bilateral uncovertebral joint hypertrophy causing effacement of the ventral subarachnoid space, mild remodeling of the cord, and bilateral neural foraminal stenosis. * C6-C7: There is a disc ost eophyte complex with bilateral uncovertebral joint hypertrophy causing effacement of the ventral subarachnoid space with remodeling of the cord and bilateral neural foraminal stenosis. * C7-T1: Normal spinal canal and neural foramina . The cord has normal caliber and signal intensity, without focal lesions. The paraspinal soft tissues are unremarkable. IMPRESSION: 1. Degenerative changes of t he intervertebral disks and uncovertebral joints at multiple levels. There is remodeling of the cord at C5-C6 and C6-C7, along with bilateral neural foraminal stenosis. 2. No myelopathy. Resident preliminary report: Creator: Andree Salomon Christiano e: Oct 13, 2015 07:05:21 Subject: Significant degen change at C5-7, with posterior disc bulges at C5/6 and 6/7 resulting in spinal canal stenosis. Minimally increased cord si gnal at these levels may rep resent acute edema. C spine well aligned. No fracture identified. d/w ortho in person at 7:05am 2015-10-13 EXAM: MRI CERVICAL SPINE WITHOUT CONTRAST [facility] 05:15:00-00:00 DATE: 10/13/2015 Center INDICATION: Numbness COMPARISON: Cervical spine CT dated 10/12/2015 TECHNIQUE: Multiplanar, mult isequence noncontrast MR imaging of the cervical spine. IV contrast: None. FINDINGS: Vertebrae: The craniocervica l junction is normal. The height and alignment of the vertebral bodies are normal. Disks and neuroforamina: Degenerative changes ar e present at multiple levels: * C2-C3: The spinal canal and the neural foramin a are patent. * C3-C4: There is uncoverteb ral joint hypertrophy on the right, not causing stenosis of the neural foramina. * C4-C5: There is neural for aminal stenosis on the right, not causing neural foraminal stenosis. * C5-C6: There is a disc ost eophyte complexes and bilateral uncovertebral joint hypertrophy causing effacement of the ventral subarachnoid space, mild remodeling of the cord, and bilateral neural foraminal stenosis. * C6-C7: There is a disc ost eophyte complex with bilateral uncovertebral joint hypertrophy causing effacement of the ventral subarachnoid space with remodeling of the cord and bilateral neural foraminal stenosis. * C7-T1: Normal spinal canal and neural foramina . The cord has normal caliber and signal intensity, without focal lesions. The paraspinal soft tissues are unremarkable. IMPRESSION: 1. Degenerative changes of t he intervertebral disks and uncovertebral joints at multiple levels. There is remodeling of the cord at C5-C6 and C6-C7, along with bilateral neural foraminal stenosis. 2. No myelopathy. Resident preliminary report: Creator: Andree Salomon S Christiano e: Oct 13, 2015 07:05:21 Subject: Significant degen change at C5-7, with posterior disc bulges at C5/6 and 6/7 resulting in spinal canal stenosis. Minimally increased cord si gnal at these levels may rep resent acute edema. C spine well aligned. No fracture identified. d/w ortho in person at 7:05am 2015-10-13 EXAM: MRI CERVICAL SPINE WITHOUT CONTRAST [facility] 05:15:00-00:00 DATE: 10/13/2015 Center INDICATION: Numbness COMPARISON: Cervical spine CT dated 10/12/2015 TECHNIQUE: Multiplanar, mult isequence noncontrast MR imaging of the cervical spine. IV contrast: None. FINDINGS: Vertebrae: The craniocervica l junction is normal. The height and alignment of the vertebral bodies are normal. Disks and neuroforamina: Degenerative changes ar e present at multiple levels: * C2-C3: The spinal canal and the neural foramin a are patent. * C3-C4: There is uncoverteb ral joint hypertrophy on the right, not causing stenosis of the neural foramina. * C4-C5: There is neural for aminal stenosis on the right, not causing neural foraminal stenosis. * C5-C6: There is a disc ost eophyte complexes and bilateral uncovertebral joint hypertrophy causing effacement of the ventral subarachnoid space, mild remodeling of the cord, and bilateral neural foraminal stenosis. * C6-C7: There is a disc ost eophyte complex with bilateral uncovertebral joint hypertrophy causing effacement of the ventral subarachnoid space with remodeling of the cord and bilateral neural foraminal stenosis. * C7-T1: Normal spinal canal and neural foramina . The cord has normal caliber and signal intensity, without focal lesions. The paraspinal soft tissues are unremarkable. IMPRESSION: 1. Degenerative changes of t he intervertebral disks and uncovertebral joints at multiple levels. There is remodeling of the cord at C5-C6 and C6-C7, along with bilateral neural foraminal stenosis. 2. No myelopathy. Resident preliminary report: Creator: Andree Salomon Christiano e: Oct 13, 2015 07:05:21 Subject: Significant degen change at C5-7, with posterior disc bulges at C5/6 and 6/7 resulting in spinal canal stenosis. Minimally increased cord si gnal at these levels may rep resent acute edema. C spine well aligned. No fracture identified. d/w ortho in person at 7:05am 2015-10-13 EXAM: MRI CERVICAL SPINE WITHOUT CONTRAST [facility] 05:15:00-00:00 DATE: 10/13/2015 Center INDICATION: Numbness COMPARISON: Cervical spine CT dated 10/12/2015 TECHNIQUE: Multiplanar, mult isequence noncontrast MR imaging of the cervical spine. IV contrast: None. FINDINGS: Vertebrae: The craniocervica l junction is normal. The height and alignment of the vertebral bodies are normal. Disks and neuroforamina: Degenerative changes ar e present at multiple levels: * C2-C3: The spinal canal and the neural foramin a are patent. * C3-C4: There is uncoverteb ral joint hypertrophy on the right, not causing stenosis of the neural foramina. * C4-C5: There is neural for aminal stenosis on the right, not causing neural foraminal stenosis. * C5-C6: There is a disc ost eophyte complexes and bilateral uncovertebral joint hypertrophy causing effacement of the ventral subarachnoid space, mild remodeling of the cord, and bilateral neural foraminal stenosis. * C6-C7: There is a disc ost eophyte complex with bilateral uncovertebral joint hypertrophy causing effacement of the ventral subarachnoid space with remodeling of the cord and bilateral neural foraminal stenosis. * C7-T1: Normal spinal canal and neural foramina . The cord has normal caliber and signal intensity, without focal lesions. The paraspinal soft tissues are unremarkable. IMPRESSION: 1. Degenerative changes of t he intervertebral disks and uncovertebral joints at multiple levels. There is remodeling of the cord at C5-C6 and C6-C7, along with bilateral neural foraminal stenosis. 2. No myelopathy. Resident preliminary report: Creator: Andree Salomon Christiano e: Oct 13, 2015 07:05:21 Subject: Significant degen change at C5-7, with posterior disc bulges at C5/6 and 6/7 resulting in spinal canal stenosis. Minimally increased cord si gnal at these levels may rep resent acute edema. C spine well aligned. No fracture identified. d/w ortho in person at 7:05am 2015-10-13 EXAM: MRI CERVICAL SPINE WITHOUT CONTRAST [facility] 05:15:00-00:00 DATE: 10/13/2015 Center INDICATION: Numbness COMPARISON: Cervical spine CT dated 10/12/2015 TECHNIQUE: Multiplanar, mult isequence noncontrast MR imaging of the cervical spine. IV contrast: None. FINDINGS: Vertebrae: The craniocervica l junction is normal. The height and alignment of the vertebral bodies are normal. Disks and neuroforamina: Degenerative changes ar e present at multiple levels: * C2-C3: The spinal canal and the neural foramin a are patent. * C3-C4: There is uncoverteb ral joint hypertrophy on the right, not causing stenosis of the neural foramina. * C4-C5: There is neural for aminal stenosis on the right, not causing neural foraminal stenosis. * C5-C6: There is a disc ost eophyte complexes and bilateral uncovertebral joint hypertrophy causing effacement of the ventral subarachnoid space, mild remodeling of the cord, and bilateral neural foraminal stenosis. * C6-C7: There is a disc ost eophyte complex with bilateral uncovertebral joint hypertrophy causing effacement of the ventral subarachnoid space with remodeling of the cord and bilateral neural foraminal stenosis. * C7-T1: Normal spinal canal and neural foramina . The cord has normal caliber and signal intensity, without focal lesions. The paraspinal soft tissues are unremarkable. IMPRESSION: 1. Degenerative changes of t he intervertebral disks and uncovertebral joints at multiple levels. There is remodeling of the cord at C5-C6 and C6-C7, along with bilateral neural foraminal stenosis. 2. No myelopathy. Resident preliminary report: Creator: Andree Salomon Christiano e: Oct 13, 2015 07:05:21 Subject: Significant degen change at C5-7, with posterior disc bulges at C5/6 and 6/7 resulting in spinal canal stenosis. Minimally increased cord si gnal at these levels may rep resent acute edema. C spine well aligned. No fracture identified. d/w ortho in person at 7:05am 2015-10-13 EXAM: MRI CERVICAL SPINE WITHOUT CONTRAST [facility] 05:15:00-00:00 DATE: 10/13/2015 Center INDICATION: Numbness COMPARISON: Cervical spine CT dated 10/12/2015 TECHNIQUE: Multiplanar, mult isequence noncontrast MR imaging of the cervical spine. IV contrast: None. FINDINGS: Vertebrae: The craniocervica l junction is normal. The height and alignment of the vertebral bodies are normal. Disks and neuroforamina: Degenerative changes ar e present at multiple levels: * C2-C3: The spinal canal and the neural foramin a are patent. * C3-C4: There is uncoverteb ral joint hypertrophy on the right, not causing stenosis of the neural foramina. * C4-C5: There is neural for aminal stenosis on the right, not causing neural foraminal stenosis. * C5-C6: There is a disc ost eophyte complexes and bilateral uncovertebral joint hypertrophy causing effacement of the ventral subarachnoid space, mild remodeling of the cord, and bilateral neural foraminal stenosis. * C6-C7: There is a disc ost eophyte complex with bilateral uncovertebral joint hypertrophy causing effacement of the ventral subarachnoid space with remodeling of the cord and bilateral neural foraminal stenosis. * C7-T1: Normal spinal canal and neural foramina . The cord has normal caliber and signal intensity, without focal lesions. The paraspinal soft tissues are unremarkable. IMPRESSION: 1. Degenerative changes of t he intervertebral disks and uncovertebral joints at multiple levels. There is remodeling of the cord at C5-C6 and C6-C7, along with bilateral neural foraminal stenosis. 2. No myelopathy. Resident preliminary report: Creator: Andree Salomon Christiano e: Oct 13, 2015 07:05:21 Subject: Significant degen change at C5-7, with posterior disc bulges at C5/6 and 6/7 resulting in spinal canal stenosis. Minimally increased cord si gnal at these levels may rep resent acute edema. C spine well aligned. No fracture identified. d/w ortho in person at 7:05am 2015-10-13 EXAM: MRI CERVICAL SPINE WITHOUT CONTRAST [facility] 05:15:00-00:00 DATE: 10/13/2015 Center INDICATION: Numbness COMPARISON: Cervical spine CT dated 10/12/2015 TECHNIQUE: Multiplanar, mult isequence noncontrast MR imaging of the cervical spine. IV contrast: None. FINDINGS: Vertebrae: The craniocervica l junction is normal. The height and alignment of the vertebral bodies are normal. Disks and neuroforamina: Degenerative changes ar e present at multiple levels: * C2-C3: The spinal canal and the neural foramin a are patent. * C3-C4: There is uncoverteb ral joint hypertrophy on the right, not causing stenosis of the neural foramina. * C4-C5: There is neural for aminal stenosis on the right, not causing neural foraminal stenosis. * C5-C6: There is a disc ost eophyte complexes and bilateral uncovertebral joint hypertrophy causing effacement of the ventral subarachnoid space, mild remodeling of the cord, and bilateral neural foraminal stenosis. * C6-C7: There is a disc ost eophyte complex with bilateral uncovertebral joint hypertrophy causing effacement of the ventral subarachnoid space with remodeling of the cord and bilateral neural foraminal stenosis. * C7-T1: Normal spinal canal and neural foramina . The cord has normal caliber and signal intensity, without focal lesions. The paraspinal soft tissues are unremarkable. IMPRESSION: 1. Degenerative changes of t he intervertebral disks and uncovertebral joints at multiple levels. There is remodeling of the cord at C5-C6 and C6-C7, along with bilateral neural foraminal stenosis. 2. No myelopathy. Resident preliminary report: Creator: Andree Salomon Christiano e: Oct 13, 2015 07:05:21 Subject: Significant degen change at C5-7, with posterior disc bulges at C5/6 and 6/7 resulting in spinal canal stenosis. Minimally increased cord si gnal at these levels may rep resent acute edema. C spine well aligned. No fracture identified. d/w ortho in person at 7:05am 2015-10-13 EXAM: MRI CERVICAL SPINE WITHOUT CONTRAST [facility] 05:15:00-00:00 DATE: 10/13/2015 Center INDICATION: Numbness COMPARISON: Cervical spine CT dated 10/12/2015 TECHNIQUE: Multiplanar, mult isequence noncontrast MR imaging of the cervical spine. IV contrast: None. FINDINGS: Vertebrae: The craniocervica l junction is normal. The height and alignment of the vertebral bodies are normal. Disks and neuroforamina: Degenerative changes ar e present at multiple levels: * C2-C3: The spinal canal and the neural foramin a are patent. * C3-C4: There is uncoverteb ral joint hypertrophy on the right, not causing stenosis of the neural foramina. * C4-C5: There is neural for aminal stenosis on the right, not causing neural foraminal stenosis. * C5-C6: There is a disc ost eophyte complexes and bilateral uncovertebral joint hypertrophy causing effacement of the ventral subarachnoid space, mild remodeling of the cord, and bilateral neural foraminal stenosis. * C6-C7: There is a disc ost eophyte complex with bilateral uncovertebral joint hypertrophy causing effacement of the ventral subarachnoid space with remodeling of the cord and bilateral neural foraminal stenosis. * C7-T1: Normal spinal canal and neural foramina . The cord has normal caliber and signal intensity, without focal lesions. The paraspinal soft tissues are unremarkable. IMPRESSION: 1. Degenerative changes of t he intervertebral disks and uncovertebral joints at multiple levels. There is remodeling of the cord at C5-C6 and C6-C7, along with bilateral neural foraminal stenosis. 2. No myelopathy. Resident preliminary report: Creator: Andree Salomon e: Oct 13, 2015 07:05:21 Subject: Significant degen change at C5-7, with posterior disc bulges at C5/6 and 6/7 resulting in spinal canal stenosis. Minimally increased cord si gnal at these levels may rep resent acute edema. C spine well aligned. No fracture identified. d/w ortho in person at 7:05am 2015-10-13 EXAM: MRI CERVICAL SPINE WITHOUT CONTRAST [facility] 05:15:00-00:00 DATE: 10/13/2015 Center INDICATION: Numbness COMPARISON: Cervical spine CT dated 10/12/2015 TECHNIQUE: Multiplanar, mult isequence noncontrast MR imaging of the cervical spine. IV contrast: None. FINDINGS: Vertebrae: The craniocervica l junction is normal. The height and alignment of the vertebral bodies are normal. Disks and neuroforamina: Degenerative changes ar e present at multiple levels: * C2-C3: The spinal canal and the neural foramin a are patent. * C3-C4: There is uncoverteb ral joint hypertrophy on the right, not causing stenosis of the neural foramina. * C4-C5: There is neural for aminal stenosis on the right, not causing neural foraminal stenosis. * C5-C6: There is a disc ost eophyte complexes and bilateral uncovertebral joint hypertrophy causing effacement of the ventral subarachnoid space, mild remodeling of the cord, and bilateral neural foraminal stenosis. * C6-C7: There is a disc ost eophyte complex with bilateral uncovertebral joint hypertrophy causing effacement of the ventral subarachnoid space with remodeling of the cord and bilateral neural foraminal stenosis. * C7-T1: Normal spinal canal and neural foramina . The cord has normal caliber and signal intensity, without focal lesions. The paraspinal soft tissues are unremarkable. IMPRESSION: 1. Degenerative changes of t he intervertebral disks and uncovertebral joints at multiple levels. There is remodeling of the cord at C5-C6 and C6-C7, along with bilateral neural foraminal stenosis. 2. No myelopathy. Resident preliminary report: Creator: Andree Salomon Christiano e: Oct 13, 2015 07:05:21 Subject: Significant degen change at C5-7, with posterior disc bulges at C5/6 and 6/7 resulting in spinal canal stenosis. Minimally increased cord si gnal at these levels may rep resent acute edema. C spine well aligned. No fracture identified. d/w ortho in person at 7:05am 2015-10-13 EXAM: MRI CERVICAL SPINE WITHOUT CONTRAST [facility] 05:15:00-00:00 DATE: 10/13/2015 Center INDICATION: Numbness COMPARISON: Cervical spine CT dated 10/12/2015 TECHNIQUE: Multiplanar, mult isequence noncontrast MR imaging of the cervical spine. IV contrast: None. FINDINGS: Vertebrae: The craniocervica l junction is normal. The height and alignment of the vertebral bodies are normal. Disks and neuroforamina: Degenerative changes ar e present at multiple levels: * C2-C3: The spinal canal and the neural foramin a are patent. * C3-C4: There is uncoverteb ral joint hypertrophy on the right, not causing stenosis of the neural foramina. * C4-C5: There is neural for aminal stenosis on the right, not causing neural foraminal stenosis. * C5-C6: There is a disc ost eophyte complexes and bilateral uncovertebral joint hypertrophy causing effacement of the ventral subarachnoid space, mild remodeling of the cord, and bilateral neural foraminal stenosis. * C6-C7: There is a disc ost eophyte complex with bilateral uncovertebral joint hypertrophy causing effacement of the ventral subarachnoid space with remodeling of the cord and bilateral neural foraminal stenosis. * C7-T1: Normal spinal canal and neural foramina . The cord has normal caliber and signal intensity, without focal lesions. The paraspinal soft tissues are unremarkable. IMPRESSION: 1. Degenerative changes of t he intervertebral disks and uncovertebral joints at multiple levels. There is remodeling of the cord at C5-C6 and C6-C7, along with bilateral neural foraminal stenosis. 2. No myelopathy. Resident preliminary report: Creator: Andree Salomon Christiano e: Oct 13, 2015 07:05:21 Subject: Significant degen change at C5-7, with posterior disc bulges at C5/6 and 6/7 resulting in spinal canal stenosis. Minimally increased cord si gnal at these levels may rep resent acute edema. C spine well aligned. No fracture identified. d/w ortho in person at 7:05am 2015-10-13 EXAM: MRI CERVICAL SPINE WITHOUT CONTRAST [facility] 05:15:00-00:00 DATE: 10/13/2015 Center INDICATION: Numbness COMPARISON: Cervical spine CT dated 10/12/2015 TECHNIQUE: Multiplanar, mult isequence noncontrast MR imaging of the cervical spine. IV contrast: None. FINDINGS: Vertebrae: The craniocervica l junction is normal. The height and alignment of the vertebral bodies are normal. Disks and neuroforamina: Degenerative changes ar e present at multiple levels: * C2-C3: The spinal canal and the neural foramin a are patent. * C3-C4: There is uncoverteb ral joint hypertrophy on the right, not causing stenosis of the neural foramina. * C4-C5: There is neural for aminal stenosis on the right, not causing neural foraminal stenosis. * C5-C6: There is a disc ost eophyte complexes and bilateral uncovertebral joint hypertrophy causing effacement of the ventral subarachnoid space, mild remodeling of the cord, and bilateral neural foraminal stenosis. * C6-C7: There is a disc ost eophyte complex with bilateral uncovertebral joint hypertrophy causing effacement of the ventral subarachnoid space with remodeling of the cord and bilateral neural foraminal stenosis. * C7-T1: Normal spinal canal and neural foramina . The cord has normal caliber and signal intensity, without focal lesions. The paraspinal soft tissues are unremarkable. IMPRESSION: 1. Degenerative changes of t he intervertebral disks and uncovertebral joints at multiple levels. There is remodeling of the cord at C5-C6 and C6-C7, along with bilateral neural foraminal stenosis. 2. No myelopathy. Resident preliminary report: Creator: Andree Salomon S Christiano e: Oct 13, 2015 07:05:21 Subject: Significant degen change at C5-7, with posterior disc bulges at C5/6 and 6/7 resulting in spinal canal stenosis. Minimally increased cord si gnal at these levels may rep resent acute edema. C spine well aligned. No fracture identified. d/w ortho in person at 7:05am 2015-10-13 EXAM: MRI CERVICAL SPINE WITHOUT CONTRAST [facility] 05:15:00-00:00 DATE: 10/13/2015 Center INDICATION: Numbness COMPARISON: Cervical spine CT dated 10/12/2015 TECHNIQUE: Multiplanar, mult isequence noncontrast MR imaging of the cervical spine. IV contrast: None. FINDINGS: Vertebrae: The craniocervica l junction is normal. The height and alignment of the vertebral bodies are normal. Disks and neuroforamina: Degenerative changes ar e present at multiple levels: * C2-C3: The spinal canal and the neural forami na are patent. * C3-C4: There is uncoverteb ral joint hypertrophy on the right, not causing stenosis of the neural foramina. * C4-C5: There is neural for aminal stenosis on the right, not causing neural foraminal stenosis. * C5-C6: There is a disc ost eophyte complexes and bilateral uncovertebral joint hypertrophy causing effacement of the ventral subarachnoid space, mild remodeling of the cord, and bilateral neural foraminal stenosis. * C6-C7: There is a disc ost eophyte complex with bilateral uncovertebral joint hypertrophy causing effacement of the ventral subarachnoid space with remodeling of the cord and bilateral neural foraminal stenosis. * C7-T1: Normal spinal canal and neural foramina . The cord has normal caliber and signal intensity, without focal lesions. The paraspinal soft tissues are unremarkable. IMPRESSION: 1. Degenerative changes of t he intervertebral disks and uncovertebral joints at multiple levels. There is remodeling of the cord at C5-C6 and C6-C7, along with bilateral neural foraminal stenosis. 2. No myelopathy. Resident preliminary report: Creator: Andree Salomon S Christiano e: Oct 13, 2015 07:05:21 Subject: Significant degen change at C5-7, with posterior disc bulges at C5/6 and 6/7 resulting in spinal canal stenosis. Minimally increased cord si gnal at these levels may rep resent acute edema. C spine well aligned. No fracture identified. d/w ortho in person at 7:05am 2015-10-13 EXAM: MRI CERVICAL SPINE WITHOUT CONTRAST [facility] 05:15:00-00:00 DATE: 10/13/2015 Center INDICATION: Numbness COMPARISON: Cervical spine CT dated 10/12/2015 TECHNIQUE: Multiplanar, mult isequence noncontrast MR imaging of the cervical spine. IV contrast: None. FINDINGS: Vertebrae: The craniocervica l junction is normal. The height and alignment of the vertebral bodies are normal. Disks and neuroforamina: Degenerative changes ar e present at multiple levels: * C2-C3: The spinal canal and the neural foramin a are patent. * C3-C4: There is uncoverteb ral joint hypertrophy on the right, not causing stenosis of the neural foramina. * C4-C5: There is neural for aminal stenosis on the right, not causing neural foraminal stenosis. * C5-C6: There is a disc ost eophyte complexes and bilateral uncovertebral joint hypertrophy causing effacement of the ventral subarachnoid space, mild remodeling of the cord, and bilateral neural foraminal stenosis. * C6-C7: There is a disc ost eophyte complex with bilateral uncovertebral joint hypertrophy causing effacement of the ventral subarachnoid space with remodeling of the cord and bilateral neural foraminal stenosis. * C7-T1: Normal spinal canal and neural foramina . The cord has normal caliber and signal intensity, without focal lesions. The paraspinal soft tissues are unremarkable. IMPRESSION: 1. Degenerative changes of t he intervertebral disks and uncovertebral joints at multiple levels. There is remodeling of the cord at C5-C6 and C6-C7, along with bilateral neural foraminal stenosis. 2. No myelopathy. Resident preliminary report: Creator: Andree Salomon Christiano e: Oct 13, 2015 07:05:21 Subject: Significant degen change at C5-7, with posterior disc bulges at C5/6 and 6/7 resulting in spinal canal stenosis. Minimally increased cord si gnal at these levels may rep resent acute edema. C spine well aligned. No fracture identified. d/w ortho in person at 7:05am 2015-10-13 EXAM: MRI CERVICAL SPINE WITHOUT CONTRAST [facility] 05:15:00-00:00 DATE: 10/13/2015 Center INDICATION: Numbness COMPARISON: Cervical spine CT dated 10/12/2015 TECHNIQUE: Multiplanar, mult isequence noncontrast MR imaging of the cervical spine. IV contrast: None. FINDINGS: Vertebrae: The craniocervica l junction is normal. The height and alignment of the vertebral bodies are normal. Disks and neuroforamina: Degenerative changes ar e present at multiple levels: * C2-C3: The spinal canal and the neural foramin a are patent. * C3-C4: There is uncoverteb ral joint hypertrophy on the right, not causing stenosis of the neural foramina. * C4-C5: There is neural for aminal stenosis on the right, not causing neural foraminal stenosis. * C5-C6: There is a disc ost eophyte complexes and bilateral uncovertebral joint hypertrophy causing effacement of the ventral subarachnoid space, mild remodeling of the cord, and bilateral neural foraminal stenosis. * C6-C7: There is a disc ost eophyte complex with bilateral uncovertebral joint hypertrophy causing effacement of the ventral subarachnoid space with remodeling of the cord and bilateral neural foraminal stenosis. * C7-T1: Normal spinal canal and neural foramina . The cord has normal caliber and signal intensity, without focal lesions. The paraspinal soft tissues are unremarkable. IMPRESSION: 1. Degenerative changes of t he intervertebral disks and uncovertebral joints at multiple levels. There is remodeling of the cord at C5-C6 and C6-C7, along with bilateral neural foraminal stenosis. 2. No myelopathy. Resident preliminary report: Creator: Andree Salomon e: Oct 13, 2015 07:05:21 Subject: Significant degen change at C5-7, with posterior disc bulges at C5/6 and 6/7 resulting in spinal canal stenosis. Minimally increased cord si gnal at these levels may rep resent acute edema. C spine well aligned. No fracture identified. d/w ortho in person at 7:05am 2015-10-13 EXAM: MRI CERVICAL SPINE WITHOUT CONTRAST [facility] 05:15:00-00:00 DATE: 10/13/2015 Center INDICATION: Numbness COMPARISON: Cervical spine CT dated 10/12/2015 TECHNIQUE: Multiplanar, mult isequence noncontrast MR imaging of the cervical spine. IV contrast: None. FINDINGS: Vertebrae: The craniocervica l junction is normal. The height and alignment of the vertebral bodies are normal. Disks and neuroforamina: Degenerative changes ar e present at multiple levels: * C2-C3: The spinal canal and the neural foramin a are patent. * C3-C4: There is uncoverteb ral joint hypertrophy on the right, not causing stenosis of the neural foramina. * C4-C5: There is neural for aminal stenosis on the right, not causing neural foraminal stenosis. * C5-C6: There is a disc ost eophyte complexes and bilateral uncovertebral joint hypertrophy causing effacement of the ventral subarachnoid space, mild remodeling of the cord, and bilateral neural foraminal stenosis. * C6-C7: There is a disc ost eophyte complex with bilateral uncovertebral joint hypertrophy causing effacement of the ventral subarachnoid space with remodeling of the cord and bilateral neural foraminal stenosis. * C7-T1: Normal spinal canal and neural foramina . The cord has normal caliber and signal intensity, without focal lesions. The paraspinal soft tissues are unremarkable. IMPRESSION: 1. Degenerative changes of t he intervertebral disks and uncovertebral joints at multiple levels. There is remodeling of the cord at C5-C6 and C6-C7, along with bilateral neural foraminal stenosis. 2. No myelopathy. Resident preliminary report: Creator: Andree Salomon e: Oct 13, 2015 07:05:21 Subject: Significant degen change at C5-7, with posterior disc bulges at C5/6 and 6/7 resulting in spinal canal stenosis. Minimally increased cord si gnal at these levels may rep resent acute edema. C spine well aligned. No fracture identified. d/w ortho in person at 7:05am 2015-10-13 EXAM: MRI CERVICAL SPINE WITHOUT CONTRAST [facility] 05:15:00-00:00 DATE: 10/13/2015 Center INDICATION: Numbness COMPARISON: Cervical spine CT dated 10/12/2015 TECHNIQUE: Multiplanar, mult isequence noncontrast MR imaging of the cervical spine. IV contrast: None. FINDINGS: Vertebrae: The craniocervica l junction is normal. The height and alignment of the vertebral bodies are normal. Disks and neuroforamina: Degenerative changes ar e present at multiple levels: * C2-C3: The spinal canal and the neural foramin a are patent. * C3-C4: There is uncoverteb ral joint hypertrophy on the right, not causing stenosis of the neural foramina. * C4-C5: There is neural for aminal stenosis on the right, not causing neural foraminal stenosis. * C5-C6: There is a disc ost eophyte complexes and bilateral uncovertebral joint hypertrophy causing effacement of the ventral subarachnoid space, mild remodeling of the cord, and bilateral neural foraminal stenosis. * C6-C7: There is a disc ost eophyte complex with bilateral uncovertebral joint hypertrophy causing effacement of the ventral subarachnoid space with remodeling of the cord and bilateral neural foraminal stenosis. * C7-T1: Normal spinal canal and neural foramina . The cord has normal caliber and signal intensity, without focal lesions. The paraspinal soft tissues are unremarkable. IMPRESSION: 1. Degenerative changes of t he intervertebral disks and uncovertebral joints at multiple levels. There is remodeling of the cord at C5-C6 and C6-C7, along with bilateral neural foraminal stenosis. 2. No myelopathy. Resident preliminary report: Creator: Andree Salomon e: Oct 13, 2015 07:05:21 Subject: Significant degen change at C5-7, with posterior disc bulges at C5/6 and 6/7 resulting in spinal canal stenosis. Minimally increased cord si gnal at these levels may rep resent acute edema. C spine well aligned. No fracture identified. d/w ortho in person at 7:05am 2015-10-13 EXAM: MRI CERVICAL SPINE WITHOUT CONTRAST [facility] 05:15:00-00:00 DATE: 10/13/2015 Center INDICATION: Numbness COMPARISON: Cervical spine CT dated 10/12/2015 TECHNIQUE: Multiplanar, mult isequence noncontrast MR imaging of the cervical spine. IV contrast: None. FINDINGS: Vertebrae: The craniocervica l junction is normal. The height and alignment of the vertebral bodies are normal. Disks and neuroforamina: Degenerative changes ar e present at multiple levels: * C2-C3: The spinal canal and the neural foramin a are patent. * C3-C4: There is uncoverteb ral joint hypertrophy on the right, not causing stenosis of the neural foramina. * C4-C5: There is neural for aminal stenosis on the right, not causing neural foraminal stenosis. * C5-C6: There is a disc ost eophyte complexes and bilateral uncovertebral joint hypertrophy causing effacement of the ventral subarachnoid space, mild remodeling of the cord, and bilateral neural foraminal stenosis. * C6-C7: There is a disc ost eophyte complex with bilateral uncovertebral joint hypertrophy causing effacement of the ventral subarachnoid space with remodeling of the cord and bilateral neural foraminal stenosis. * C7-T1: Normal spinal canal and neural foramina . The cord has normal caliber and signal intensity, without focal lesions. The paraspinal soft tissues are unremarkable. IMPRESSION: 1. Degenerative changes of t he intervertebral disks and uncovertebral joints at multiple levels. There is remodeling of the cord at C5-C6 and C6-C7, along with bilateral neural foraminal stenosis. 2. No myelopathy. Resident preliminary report: Creator: Andree Salomon e: Oct 13, 2015 07:05:21 Subject: Significant degen change at C5-7, with posterior disc bulges at C5/6 and 6/7 resulting in spinal canal stenosis. Minimally increased cord si gnal at these levels may rep resent acute edema. C spine well aligned. No fracture identified. d/w ortho in person at 7:05am 2015-10-13 EXAM: MRI CERVICAL SPINE WITHOUT CONTRAST [facility] 05:15:00-00:00 DATE: 10/13/2015 Center INDICATION: Numbness COMPARISON: Cervical spine CT dated 10/12/2015 TECHNIQUE: Multiplanar, mult isequence noncontrast MR imaging of the cervical spine. IV contrast: None. FINDINGS: Vertebrae: The craniocervica l junction is normal. The height and alignment of the vertebral bodies are normal. Disks and neuroforamina: Degenerative changes ar e present at multiple levels: * C2-C3: The spinal canal and the neural foramin a are patent. * C3-C4: There is uncoverteb ral joint hypertrophy on the right, not causing stenosis of the neural foramina. * C4-C5: There is neural for aminal stenosis on the right, not causing neural foraminal stenosis. * C5-C6: There is a disc ost eophyte complexes and bilateral uncovertebral joint hypertrophy causing effacement of the ventral subarachnoid space, mild remodeling of the cord, and bilateral neural foraminal stenosis. * C6-C7: There is a disc ost eophyte complex with bilateral uncovertebral joint hypertrophy causing effacement of the ventral subarachnoid space with remodeling of the cord and bilateral neural foraminal stenosis. * C7-T1: Normal spinal canal and neural foramina . The cord has normal caliber and signal intensity, without focal lesions. The paraspinal soft tissues are unremarkable. IMPRESSION: 1. Degenerative changes of t he intervertebral disks and uncovertebral joints at multiple levels. There is remodeling of the cord at C5-C6 and C6-C7, along with bilateral neural foraminal stenosis. 2. No myelopathy. Resident preliminary report: Creator: Andree Salomon Christiano e: Oct 13, 2015 07:05:21 Subject: Significant degen change at C5-7, with posterior disc bulges at C5/6 and 6/7 resulting in spinal canal stenosis. Minimally increased cord si gnal at these levels may rep resent acute edema. C spine well aligned. No fracture identified. d/w ortho in person at 7:05am 2015-10-13 EXAM: XR CHEST 1 VIEW [facility] 04:55:00-00:00 DATE: 10/13/2015 4:09 AM [facility] [employer] er INDICATION: Pain Post Trauma COMPARISON: None. TECHNIQUE: AP chest, supine. 2 images FINDINGS: No pulmonary contusion or pl eural effusion or pneumothorax identified. Cardiomediastinal contours are within normal limits for portable technique. No acute displaced rib fractures seen. IMPRESSION: No acute intrathoracic traumatic rad iographic abnormality. 2015-10-13 EXAM: XR PELVIS 1 VIEW [facility] 04:55:00-00:00 DATE: 10/13/2015 4:09 AM T [employer] er INDICATION: Pain, Trauma COMPARISON: None. TECHNIQUE: A single AP supine radiograph of the pelvis FINDINGS: Sacrum is partiall y obscured by bowel gas. Otherwise, no acute fracture or pelvic ring disruption seen. Hip joints are normally aligned. Chronic appearing calcification seen inferior to the right ischial tuberosity. IMPRESSION: No acute fracture or pelvic ring dis ruption. 2015-10-13 EXAM: XR CHEST 1 VIEW [facility] 04:55:00-00:00 DATE: 10/13/2015 4:09 AM [employer] er INDICATION: Pain Post Trauma COMPARISON: None. TECHNIQUE: AP chest, supine. 2 images FINDINGS: No pulmonary contusion or pl eural effusion or pneumothorax identified. Cardiomediastinal contours are within normal limits for portable technique. No acute displaced rib fractures seen. IMPRESSION: No acute intrathoracic traumatic rad iographic abnormality. 2015-10-13 EXAM: XR PELVIS 1 VIEW [facility] 04:55:00-00:00 DATE: 10/13/2015 4:09 AM [facility] er INDICATION: Pain, Trauma COMPARISON: None. TECHNIQUE: A single AP supine radiograph of the pelvis FINDINGS: Sacrum is partiall y obscured by bowel gas. Otherwise, no acute fracture or pelvic ring disruption seen. Hip joints are normally aligned. Chronic appearing calcification seen inferior to the right ischial tuberosity. IMPRESSION: No acute fracture or pelvic ring dis ruption. 2015-10-13 EXAM: XR CHEST 1 VIEW [facility] 04:55:00-00:00 DATE: 10/13/2015 4:09 AM CDT [employer] er INDICATION: Pain Post Trauma COMPARISON: None. TECHNIQUE: AP chest, supine. 2 images FINDINGS: No pulmonary contusion or pl eural effusion or pneumothorax identified. Cardiomediastinal contours are within normal limits for portable technique. No acute displaced rib fractures seen. IMPRESSION: No acute intrathoracic traumatic rad iographic abnormality. 2015-10-13 EXAM: XR PELVIS 1 VIEW [facility] 04:55:00-00:00 DATE: 10/13/2015 4:09 AM CDT [employer] [facility] INDICATION: Pain, Trauma COMPARISON: None. TECHNIQUE: A single AP supine radiograph of the pelvis FINDINGS: Sacrum is partiall y obscured by bowel gas. Otherwise, no acute fracture or pelvic ring disruption seen. Hip joints are normally aligned. Chronic appearing calcification seen inferior to the right ischial tuberosity. IMPRESSION: No acute fracture or pelvic ring dis ruption. 2015-10-13 EXAM: XR CHEST 1 VIEW [facility] 04:55:00-00:00 DATE: 10/13/2015 4:09 AM [facility] er INDICATION: Pain Post Trauma COMPARISON: None. TECHNIQUE: AP chest, supine. 2 images FINDINGS: No pulmonary contusion or pl eural effusion or pneumothorax identified. Cardiomediastinal contours are within normal limits for portable technique. No acute displaced rib fractures seen. IMPRESSION: No acute intrathoracic traumatic rad iographic abnormality. 2015-10-13 EXAM: XR PELVIS 1 VIEW [facility] 04:55:00-00:00 DATE: 10/13/2015 4:09 AM CDT [employer] [facility] INDICATION: Pain, Trauma COMPARISON: None. TECHNIQUE: A single AP supine radiograph of the pelvis FINDINGS: Sacrum is partiall y obscured by bowel gas. Otherwise, no acute fracture or pelvic ring disruption seen. Hip joints are normally aligned. Chronic appearing calcification seen inferior to the right ischial tuberosity. IMPRESSION: No acute fracture or pelvic ring dis ruption. 2015-10-13 EXAM: XR CHEST 1 VIEW [facility] 04:55:00-00:00 DATE: 10/13/2015 4:09 AM T [employer] [facility] INDICATION: Pain Post Trauma COMPARISON: None. TECHNIQUE: AP chest, supine. 2 images FINDINGS: No pulmonary contusion or pl eural effusion or pneumothorax identified. Cardiomediastinal contours are within normal limits for portable technique. No acute displaced rib fractures seen. IMPRESSION: No acute intrathoracic traumatic rad iographic abnormality. 2015-10-13 EXAM: XR PELVIS 1 VIEW [facility] 04:55:00-00:00 DATE: 10/13/2015 4:09 AM [facility] er INDICATION: Pain, Trauma COMPARISON: None. TECHNIQUE: A single AP supine radiograph of the pelvis FINDINGS: Sacrum is partiall y obscured by bowel gas. Otherwise, no acute fracture or pelvic ring disruption seen. Hip joints are normally aligned. Chronic appearing calcification seen inferior to the right ischial tuberosity. IMPRESSION: No acute fracture or pelvic ring dis ruption. 2015-10-13 EXAM: XR CHEST 1 VIEW [facility] 04:55:00-00:00 DATE: 10/13/2015 4:09 AM T [facility] er INDICATION: Pain Post Trauma COMPARISON: None. TECHNIQUE: AP chest, supine. 2 images FINDINGS: No pulmonary contusion or pl eural effusion or pneumothorax identified. Cardiomediastinal contours are within normal limits for portable technique. No acute displaced rib fractures seen. IMPRESSION: No acute intrathoracic traumatic rad iographic abnormality. 2015-10-13 EXAM: XR PELVIS 1 VIEW [facility] 04:55:00-00:00 DATE: 10/13/2015 4:09 AM [facility] [employer] er INDICATION: Pain, Trauma COMPARISON: None. TECHNIQUE: A single AP supine radiograph of the pelvis FINDINGS: Sacrum is partiall y obscured by bowel gas. Otherwise, no acute fracture or pelvic ring disruption seen. Hip joints are normally aligned. Chronic appearing calcification seen inferior to the right ischial tuberosity. IMPRESSION: No acute fracture or pelvic ring dis ruption. 2015-10-13 EXAM: XR CHEST 1 VIEW [facility] 04:55:00-00:00 DATE: 10/13/2015 4:09 AM CDT [employer] INDICATION: Pain Post Trauma COMPARISON: None. TECHNIQUE: AP chest, supine. 2 images FINDINGS: No pulmonary contusion or pl eural effusion or pneumothorax identified. Cardiomediastinal contours are within normal limits for portable technique. No acute displaced rib fractures seen. IMPRESSION: No acute intrathoracic traumatic rad iographic abnormality. 2015-10-13 EXAM: XR PELVIS 1 VIEW [facility] 04:55:00-00:00 DATE: 10/13/2015 4:09 AM CDT [employer] INDICATION: Pain, Trauma COMPARISON: None. TECHNIQUE: A single AP supine radiograph of the pelvis FINDINGS: Sacrum is partiall y obscured by bowel gas. Otherwise, no acute fracture or pelvic ring disruption seen. Hip joints are normally aligned. Chronic appearing calcification seen inferior to the right ischial tuberosity. IMPRESSION: No acute fracture or pelvic ring dis ruption. 2015-10-13 EXAM: XR CHEST 1 VIEW [facility] 04:55:00-00:00 DATE: 10/13/2015 4:09 AM CDT [employer] [facility] INDICATION: Pain Post Trauma COMPARISON: None. TECHNIQUE: AP chest, supine. 2 images FINDINGS: No pulmonary contusion or pl eural effusion or pneumothorax identified. Cardiomediastinal contours are within normal limits for portable technique. No acute displaced rib fractures seen. IMPRESSION: No acute intrathoracic traumatic rad iographic abnormality. 2015-10-13 EXAM: XR PELVIS 1 VIEW [facility] 04:55:00-00:00 DATE: 10/13/2015 4:09 AM CDT [employer] er INDICATION: Pain, Trauma COMPARISON: None. TECHNIQUE: A single AP supine radiograph of the pelvis FINDINGS: Sacrum is partiall y obscured by bowel gas. Otherwise, no acute fracture or pelvic ring disruption seen. Hip joints are normally aligned. Chronic appearing calcification seen inferior to the right ischial tuberosity. IMPRESSION: No acute fracture or pelvic ring dis ruption. 2015-10-13 EXAM: XR CHEST 1 VIEW [facility] 04:55:00-00:00 DATE: 10/13/2015 4:09 AM CDT [employer] [facility] INDICATION: Pain Post Trauma COMPARISON: None. TECHNIQUE: AP chest, supine. 2 images FINDINGS: No pulmonary contusion or pl eural effusion or pneumothorax identified. Cardiomediastinal contours are within normal limits for portable technique. No acute displaced rib fractures seen. IMPRESSION: No acute intrathoracic traumatic rad iographic abnormality. 2015-10-13 EXAM: XR PELVIS 1 VIEW [facility] 04:55:00-00:00 DATE: 10/13/2015 4:09 AM T [facility] er INDICATION: Pain, Trauma COMPARISON: None. TECHNIQUE: A single AP supine radiograph of the pelvis FINDINGS: Sacrum is partiall y obscured by bowel gas. Otherwise, no acute fracture or pelvic ring disruption seen. Hip joints are normally aligned. Chronic appearing calcification seen inferior to the right ischial tuberosity. IMPRESSION: No acute fracture or pelvic ring dis ruption. 2015-10-13 EXAM: XR CHEST 1 VIEW [facility] 04:55:00-00:00 DATE: 10/13/2015 4:09 AM T [facility] er INDICATION: Pain Post Trauma COMPARISON: None. TECHNIQUE: AP chest, supine. 2 images FINDINGS: No pulmonary contusion or pl eural effusion or pneumothorax identified. Cardiomediastinal contours are within normal limits for portable technique. No acute displaced rib fractures seen. IMPRESSION: No acute intrathoracic traumatic rad iographic abnormality. 2015-10-13 EXAM: XR PELVIS 1 VIEW [facility] 04:55:00-00:00 DATE: 10/13/2015 4:09 AM T [facility] er INDICATION: Pain, Trauma COMPARISON: None. TECHNIQUE: A single AP supine radiograph of the pelvis FINDINGS: Sacrum is partiall y obscured by bowel gas. Otherwise, no acute fracture or pelvic ring disruption seen. Hip joints are normally aligned. Chronic appearing calcification seen inferior to the right ischial tuberosity. IMPRESSION: No acute fracture or pelvic ring dis ruption. 2015-10-13 EXAM: XR CHEST 1 VIEW [facility] 04:55:00-00:00 DATE: 10/13/2015 4:09 AM T [facility] er INDICATION: Pain Post Trauma COMPARISON: None. TECHNIQUE: AP chest, supine. 2 images FINDINGS: No pulmonary contusion or pl eural effusion or pneumothorax identified. Cardiomediastinal contours are within normal limits for portable technique. No acute displaced rib fractures seen. IMPRESSION: No acute intrathoracic traumatic rad iographic abnormality. 2015-10-13 EXAM: XR PELVIS 1 VIEW [facility] 04:55:00-00:00 DATE: 10/13/2015 4:09 AM [facility] INDICATION: Pain, Trauma COMPARISON: None. TECHNIQUE: A single AP supine radiograph of the pelvis FINDINGS: Sacrum is partiall y obscured by bowel gas. Otherwise, no acute fracture or pelvic ring disruption seen. Hip joints are normally aligned. Chronic appearing calcification seen inferior to the right ischial tuberosity. IMPRESSION: No acute fracture or pelvic ring dis ruption. 2015-10-13 EXAM: XR CHEST 1 VIEW [facility] 04:55:00-00:00 DATE: 10/13/2015 4:09 AM [facility] er INDICATION: Pain Post Trauma COMPARISON: None. TECHNIQUE: AP chest, supine. 2 images FINDINGS: No pulmonary contusion or pl eural effusion or pneumothorax identified. Cardiomediastinal contours are within normal limits for portable technique. No acute displaced rib fractures seen. IMPRESSION: No acute intrathoracic traumatic rad iographic abnormality. 2015-10-13 EXAM: XR PELVIS 1 VIEW [facility] 04:55:00-00:00 DATE: 10/13/2015 4:09 AM [facility] er INDICATION: Pain, Trauma COMPARISON: None. TECHNIQUE: A single AP supine radiograph of the pelvis FINDINGS: Sacrum is partiall y obscured by bowel gas. Otherwise, no acute fracture or pelvic ring disruption seen. Hip joints are normally aligned. Chronic appearing calcification seen inferior to the right ischial tuberosity. IMPRESSION: No acute fracture or pelvic ring dis ruption. 2015-10-13 EXAM: XR CHEST 1 VIEW [facility] 04:55:00-00:00 DATE: 10/13/2015 4:09 AM [facility] er INDICATION: Pain Post Trauma COMPARISON: None. TECHNIQUE: AP chest, supine. 2 images FINDINGS: No pulmonary contusion or pl eural effusion or pneumothorax identified. Cardiomediastinal contours are within normal limits for portable technique. No acute displaced rib fractures seen. IMPRESSION: No acute intrathoracic traumatic rad iographic abnormality. 2015-10-13 EXAM: XR PELVIS 1 VIEW [facility] 04:55:00-00:00 DATE: 10/13/2015 4:09 AM [facility] er INDICATION: Pain, Trauma COMPARISON: None. TECHNIQUE: A single AP supine radiograph of the pelvis FINDINGS: Sacrum is partiall y obscured by bowel gas. Otherwise, no acute fracture or pelvic ring disruption seen. Hip joints are normally aligned. Chronic appearing calcification seen inferior to the right ischial tuberosity. IMPRESSION: No acute fracture or pelvic ring dis ruption. 2015-10-13 EXAM: XR CHEST 1 VIEW [facility] 04:55:00-00:00 DATE: 10/13/2015 4:09 AM [facility] er INDICATION: Pain Post Trauma COMPARISON: None. TECHNIQUE: AP chest, supine. 2 images FINDINGS: No pulmonary contusion or pl eural effusion or pneumothorax identified. Cardiomediastinal contours are within normal limits for portable technique. No acute displaced rib fractures seen. IMPRESSION: No acute intrathoracic traumatic rad iographic abnormality. 2015-10-13 EXAM: XR PELVIS 1 VIEW [facility] 04:55:00-00:00 DATE: 10/13/2015 4:09 AM CDT [facility] er INDICATION: Pain, Trauma COMPARISON: None. TECHNIQUE: A single AP supine radiograph of the pelvis FINDINGS: Sacrum is partiall y obscured by bowel gas. Otherwise, no acute fracture or pelvic ring disruption seen. Hip joints are normally aligned. Chronic appearing calcification seen inferior to the right ischial tuberosity. IMPRESSION: No acute fracture or pelvic ring dis ruption. 2015-10-13 EXAM: XR CHEST 1 VIEW [facility] 04:55:00-00:00 DATE: 10/13/2015 4:09 AM T [facility] er INDICATION: Pain Post Trauma COMPARISON: None. TECHNIQUE: AP chest, supine. 2 images FINDINGS: No pulmonary contusion or pl eural effusion or pneumothorax identified. Cardiomediastinal contours are within normal limits for portable technique. No acute displaced rib fractures seen. IMPRESSION: No acute intrathoracic traumatic rad iographic abnormality. 2015-10-13 EXAM: XR PELVIS 1 VIEW [facility] 04:55:00-00:00 DATE: 10/13/2015 4:09 AM [facility] er INDICATION: Pain, Trauma COMPARISON: None. TECHNIQUE: A single AP supine radiograph of the pelvis FINDINGS: Sacrum is partiall y obscured by bowel gas. Otherwise, no acute fracture or pelvic ring disruption seen. Hip joints are normally aligned. Chronic appearing calcification seen inferior to the right ischial tuberosity. IMPRESSION: No acute fracture or pelvic ring dis ruption. 2015-10-13 EXAM: XR CHEST 1 VIEW [facility] 04:55:00-00:00 DATE: 10/13/2015 4:09 AM CDT [employer] [facility] INDICATION: Pain Post Trauma COMPARISON: None. TECHNIQUE: AP chest, supine. 2 images FINDINGS: No pulmonary contusion or pl eural effusion or pneumothorax identified. Cardiomediastinal contours are within normal limits for portable technique. No acute displaced rib fractures seen. IMPRESSION: No acute intrathoracic traumatic rad iographic abnormality. 2015-10-13 EXAM: XR PELVIS 1 VIEW [facility] 04:55:00-00:00 DATE: 10/13/2015 4:09 AM CDT [employer] [facility] INDICATION: Pain, Trauma COMPARISON: None. TECHNIQUE: A single AP supine radiograph of the pelvis FINDINGS: Sacrum is partiall y obscured by bowel gas. Otherwise, no acute fracture or pelvic ring disruption seen. Hip joints are normally aligned. Chronic appearing calcification seen inferior to the right ischial tuberosity. IMPRESSION: No acute fracture or pelvic ring dis ruption. 2015-10-13 EXAM: XR CHEST 1 VIEW [facility] 04:55:00-00:00 DATE: 10/13/2015 4:09 AM T [employer] er INDICATION: Pain Post Trauma COMPARISON: None. TECHNIQUE: AP chest, supine. 2 images FINDINGS: No pulmonary contusion or pl eural effusion or pneumothorax identified. Cardiomediastinal contours are within normal limits for portable technique. No acute displaced rib fractures seen. IMPRESSION: No acute intrathoracic traumatic rad iographic abnormality. 2015-10-13 EXAM: XR PELVIS 1 VIEW [facility] 04:55:00-00:00 DATE: 10/13/2015 4:09 AM T [employer] er INDICATION: Pain, Trauma COMPARISON: None. TECHNIQUE: A single AP supine radiograph of the pelvis FINDINGS: Sacrum is partiall y obscured by bowel gas. Otherwise, no acute fracture or pelvic ring disruption seen. Hip joints are normally aligned. Chronic appearing calcification seen inferior to the right ischial tuberosity. IMPRESSION: No acute fracture or pelvic ring dis ruption. 2015-10-13 EXAM: XR CHEST 1 VIEW [facility] 04:55:00-00:00 DATE: 10/13/2015 4:09 AM CDT [employer] er INDICATION: Pain Post Trauma COMPARISON: None. TECHNIQUE: AP chest, supine. 2 images FINDINGS: No pulmonary contusion or pl eural effusion or pneumothorax identified. Cardiomediastinal contours are within normal limits for portable technique. No acute displaced rib fractures seen. IMPRESSION: No acute intrathoracic traumatic rad iographic abnormality. 2015-10-13 EXAM: XR PELVIS 1 VIEW [facility] 04:55:00-00:00 DATE: 10/13/2015 4:09 AM CDT [facility]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 paravertebral soft tissue stripe is identified. IMPRESSION: 1. Limited exam. There is no gross radiographic evidence of acute thoracic vertebral fracture. If there is persistent clinical suspicion of thoracic vertebral injury, the lateral images should be repeated using standard positioning. SL: 131 2015-10-12 CT of the cervical spine without contrast dated 10/12/2015. [facility] 23:20:08-00:00 HISTORY: Post traumatic cervical pain A CT of the cervical spine w as performed using thin slice noncontrast axial images with subsequent sagittal and coronal reconstruction. No prior studies are available for comparison. FINDINGS: There is no CT evidence of a cute cervical vertebral fracture. Cervical alignment and vertebral body height are maintained on the sagittal reconstruction images. At C5-C6 and C6-C7, the combination of an annular disc bulge and vert ebral endplate spurring resulting in spinal canal stenosis with complete effacement of the subarachnoid space anterior and posterior to the cervical cord and mild cord flatte richard. Facet and uncovertebra l joint hypertrophy results in bilateral foraminal disease. No significant prevertebral soft tissue swelling or paravertebral hematoma formation is identified. IMPRESSION: 1. No CT evidence of acute cervical vertebral fr acture. 2. C5-C6 and C6-C7 spondylosis resulting in cerv ical canal stenosis. SL: 131 2015-10-12 [facility] 23:20:08-00:00 : 1955; Age: 60 years y/o Female MR: [id number] Study: Brain wo contrast CT 10/12/2015 11:10 PM C DT Clinical Indication: Head injury; Comparison: None TECHNIQUE: CT images were ob tained from the foramen magnum to the vertex without the use of intravenous contrast on a multidetector CT. Coronal and sagittal reconstructions were obtained. FINDINGS: BRAIN PARENCHYMA: Small old infarction seen to the lateral right frontal lobe. No evidence for subarachnoid, intraparenchymal or intraventricular hemorrhage. No significant extra-axial fluid collection, mass effect or shift. No evidence for an acute infarction. VENTRICLES: Ventricles are within normal limits for the patient's age. ORBITS, MASTOIDS AND PARANAS AL SINUSES: The visualized orbits and paranasal sinuses are unremarkable. The mastoid air cells are clear. SKULL: Patient is status post right frontal cran iotomy. If there is further concern for intracranial pathology or acute stroke, MRI of the brain may be performed for complete assessment. IMPRESSION: 1. Patient is status post right frontal cranioto my. 2. 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 3. Otherwise unremarkable head CT without contra st. SL: CSODERSTROM-PC 2015-10-12 CT of the cervical spine without contrast dated 10/12/2015. [facility] 23:20:08-00:00 HISTORY: Post traumatic cervical pain A CT of the cervical spine w as performed using thin slice noncontrast axial images with subsequent sagittal and coronal reconstruction. No prior studies are available for comparison. FINDINGS: There is no CT evidence of a cute cervical vertebral fracture. Cervical alignment and vertebral body height are maintained on the sagittal reconstruction images. At C5-C6 and C6-C7, the combination of an annular disc bulge and vert ebral endplate spurring resulting in spinal canal stenosis with complete effacement of the subarachnoid space anterior and posterior to the cervical cord and mild cord flatte richard. Facet and uncovertebra l joint hypertrophy results in bilateral foraminal disease. No significant prevertebral soft tissue swelling or paravertebral hematoma formation is identified. IMPRESSION: 1. No CT evidence of acute cervical vertebral fr acture. 2. C5-C6 and C6-C7 spondylosis resulting in cerv ical canal stenosis. SL: 131 2015-10-12 Patient Name: HARLEEN villanueva [place] 23:20:08-00:00 : 1955; Age: 60 years y/o Female MR: [id number] Study: Brain wo contrast CT 10/12/2015 11:10 PM C DT Clinical Indication: Head injury; Comparison: None TECHNIQUE: CT images were ob tained from the foramen magnum to the vertex without the use of intravenous contrast on a multidetector CT. Coronal and sagittal reconstructions were obtained. FINDINGS: BRAIN PARENCHYMA: Small old infarction seen to the lateral right frontal lobe. No evidence for subarachnoid, intraparenchymal or intraventricular hemorrhage. No significant extra-axial fluid collection, mass effect or shift. No evidence for an acute infarction. VENTRICLES: Ventricles are within normal limits for the patient's age. ORBITS, MASTOIDS AND PARANAS AL SINUSES: The visualized orbits and paranasal sinuses are unremarkable. The mastoid air cells are clear. SKULL: Patient is status post right frontal cran iotomy. If there is further concern for intracranial pathology or acute stroke, MRI of the brain may be performed for complete assessment. IMPRESSION: 1. Patient is status post right frontal cranioto my. 2. 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 3. Otherwise unremarkable head CT without contra st. SL: CSODERSTROM-PC 2015-10-12 CT of the cervical spine without contrast dated 10/12/2015. [facility] 23:20:08-00:00 HISTORY: Post traumatic cervical pain A CT of the cervical spine w as performed using thin slice noncontrast axial images with subsequent sagittal and coronal reconstruction. No prior studies are available for comparison. FINDINGS: There is no CT evidence of a cute cervical vertebral fracture. Cervical alignment and vertebral body height are maintained on the sagittal reconstruction images. At C5-C6 and C6-C7, the combination of an annular disc bulge and vert ebral endplate spurring resulting in spinal canal stenosis with complete effacement of the subarachnoid space anterior and posterior to the cervical cord and mild cord flatte richard. Facet and uncovertebra l joint hypertrophy results in bilateral foraminal disease. No significant prevertebral soft tissue swelling or paravertebral hematoma formation is identified. IMPRESSION: 1. No CT evidence of acute cervical vertebral fr acture. 2. C5-C6 and C6-C7 spondylosis resulting in cerv ical canal stenosis. SL: 131 2015-10-12 Patient Name: HARLEEN villanueva [place] 23:20:08-00:00 : 1955; Age: 60 years y/o Female MR: [id number] Study: Brain wo contrast CT 10/12/2015 11:10 PM C DT Clinical Indication: Head injury; Comparison: None TECHNIQUE: CT images were ob tained from the foramen magnum to the vertex without the use of intravenous contrast on a multidetector CT. Coronal and sagittal reconstructions were obtained. FINDINGS: BRAIN PARENCHYMA: Small old infarction seen to the lateral right frontal lobe. No evidence for subarachnoid, intraparenchymal or intraventricular hemorrhage. No significant extra-axial fluid collection, mass effect or shift. No evidence for an acute infarction. VENTRICLES: Ventricles are within normal limits for the patient's age. ORBITS, MASTOIDS AND PARANAS AL SINUSES: The visualized orbits and paranasal sinuses are unremarkable. The mastoid air cells are clear. SKULL: Patient is status post right frontal cran iotomy. If there is further concern for intracranial pathology or acute stroke, MRI of the brain may be performed for complete assessment. IMPRESSION: 1. Patient is status post right frontal cranioto my. 2. 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 3. Otherwise unremarkable head CT without contra st. SL: CSODERSTROM-PC 2015-10-12 CT of the cervical spine without contrast dated 10/12/2015. [facility] 23:20:08-00:00 HISTORY: Post traumatic cervical pain A CT of the cervical spine w as performed using thin slice noncontrast axial images with subsequent sagittal and coronal reconstruction. No prior studies are available for comparison. FINDINGS: There is no CT evidence of a cute cervical vertebral fracture. Cervical alignment and vertebral body height are maintained on the sagittal reconstruction images. At C5-C6 and C6-C7, the combination of an annular disc bulge and vert ebral endplate spurring resulting in spinal canal stenosis with complete effacement of the subarachnoid space anterior and posterior to the cervical cord and mild cord flatte rcihard. Facet and uncovertebra l joint hypertrophy results in bilateral foraminal disease. No significant prevertebral soft tissue swelling or paravertebral hematoma formation is identified. IMPRESSION: 1. No CT evidence of acute cervical vertebral fr acture. 2. C5-C6 and C6-C7 spondylosis resulting in cerv ical canal stenosis. SL: 131 2015-10-12 Patient Name: HARLEEN villanueva [place] 23:20:08-00:00 : 1955; Age: 60 years y/o Female MR: [id number] Study: Brain wo contrast CT 10/12/2015 11:10 PM C DT Clinical Indication: Head injury; Comparison: None TECHNIQUE: CT images were ob tained from the foramen magnum to the vertex without the use of intravenous contrast on a multidetector CT. Coronal and sagittal reconstructions were obtained. FINDINGS: BRAIN PARENCHYMA: Small old infarction seen to the lateral right frontal lobe. No evidence for subarachnoid, intraparenchymal or intraventricular hemorrhage. No significant extra-axial fluid collection, mass effect or shift. No evidence for an acute infarction. VENTRICLES: Ventricles are within normal limits for the patient's age. ORBITS, MASTOIDS AND PARANAS AL SINUSES: The visualized orbits and paranasal sinuses are unremarkable. The mastoid air cells are clear. SKULL: Patient is status post right frontal cran iotomy. If there is further concern for intracranial pathology or acute stroke, MRI of the brain may be performed for complete assessment. IMPRESSION: 1. Patient is status post right frontal cranioto my. 2. 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 3. Otherwise unremarkable head CT without contra st. SL: CSODERSTROM-PC 2015-10-12 CT of the cervical spine without contrast dated 10/12/2015. [facility] 23:20:08-00:00 HISTORY: Post traumatic cervical pain A CT of the cervical spine w as performed using thin slice noncontrast axial images with subsequent sagittal and coronal reconstruction. No prior studies are available for comparison. FINDINGS: There is no CT evidence of a cute cervical vertebral fracture. Cervical alignment and vertebral body height are maintained on the sagittal reconstruction images. At C5-C6 and C6-C7, the combination of an annular disc bulge and vert ebral endplate spurring resulting in spinal canal stenosis with complete effacement of the subarachnoid space anterior and posterior to the cervical cord and mild cord flatte richard. Facet and uncovertebra l joint hypertrophy results in bilateral foraminal disease. No significant prevertebral soft tissue swelling or paravertebral hematoma formation is identified. IMPRESSION: 1. No CT evidence of acute cervical vertebral fr acture. 2. C5-C6 and C6-C7 spondylosis resulting in cerv ical canal stenosis. SL: 131 2015-10-12 Patient Name: HARLEEN villanueva [place] 23:20:08-00:00 : 1955; Age: 60 years y/o Female MR: [id number] Study: Brain wo contrast CT 10/12/2015 11:10 PM C DT Clinical Indication: Head injury; Comparison: None TECHNIQUE: CT images were ob tained from the foramen magnum to the vertex without the use of intravenous contrast on a multidetector CT. Coronal and sagittal reconstructions were obtained. FINDINGS: BRAIN PARENCHYMA: Small old infarction seen to the lateral right frontal lobe. No evidence for subarachnoid, intraparenchymal or intraventricular hemorrhage. No significant extra-axial fluid collection, mass effect or shift. No evidence for an acute infarction. VENTRICLES: Ventricles are within normal limits for the patient's age. ORBITS, MASTOIDS AND PARANAS AL SINUSES: The visualized orbits and paranasal sinuses are unremarkable. The mastoid air cells are clear. SKULL: Patient is status post right frontal cran iotomy. If there is further concern for intracranial pathology or acute stroke, MRI of the brain may be performed for complete assessment. IMPRESSION: 1. Patient is status post right frontal cranioto my. 2. 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 3. Otherwise unremarkable head CT without contra st. SL: CSODERSTROM-PC 2015-10-12 CT of the cervical spine without contrast dated 10/12/2015. [facility] 23:20:08-00:00 HISTORY: Post traumatic cervical pain A CT of the cervical spine w as performed using thin slice noncontrast axial images with subsequent sagittal and coronal reconstruction. No prior studies are available for comparison. FINDINGS: There is no CT evidence of a cute cervical vertebral fracture. Cervical alignment and vertebral body height are maintained on the sagittal reconstruction images. At C5-C6 and C6-C7, the combination of an annular disc bulge and vert ebral endplate spurring resulting in spinal canal stenosis with complete effacement of the subarachnoid space anterior and posterior to the cervical cord and mild cord flatte richard. Facet and uncovertebra l joint hypertrophy results in bilateral foraminal disease. No significant prevertebral soft tissue swelling or paravertebral hematoma formation is identified. IMPRESSION: 1. No CT evidence of acute cervical vertebral fr acture. 2. C5-C6 and C6-C7 spondylosis resulting in cerv ical canal stenosis. SL: 131 2015-10-12 Patient Name: HARLEEN villanueva [place] 23:20:08-00:00 : 1955; Age: 60 years y/o Female MR: [id number] Study: Brain wo contrast CT 10/12/2015 11:10 PM C DT Clinical Indication: Head injury; Comparison: None TECHNIQUE: CT images were ob tained from the foramen magnum to the vertex without the use of intravenous contrast on a multidetector CT. Coronal and sagittal reconstructions were obtained. FINDINGS: BRAIN PARENCHYMA: Small old infarction seen to the lateral right frontal lobe. No evidence for subarachnoid, intraparenchymal or intraventricular hemorrhage. No significant extra-axial fluid collection, mass effect or shift. No evidence for an acute infarction. VENTRICLES: Ventricles are within normal limits for the patient's age. ORBITS, MASTOIDS AND PARANAS AL SINUSES: The visualized orbits and paranasal sinuses are unremarkable. The mastoid air cells are clear. SKULL: Patient is status post right frontal cran iotomy. If there is further concern for intracranial pathology or acute stroke, MRI of the brain may be performed for complete assessment. IMPRESSION: 1. Patient is status post right frontal cranioto my. 2. 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 3. Otherwise unremarkable head CT without contra st. SL: CSODERSTROM- 2015-10-12 CT of the cervical spine without contrast dated 10/12/2015. [facility] 23:20:08-00:00 HISTORY: Post traumatic cervical pain A CT of the cervical spine w as performed using thin slice noncontrast axial images with subsequent sagittal and coronal reconstruction. No prior studies are available for comparison. FINDINGS: There is no CT evidence of a cute cervical vertebral fracture. Cervical alignment and vertebral body height are maintained on the sagittal reconstruction images. At C5-C6 and C6-C7, the combination of an annular disc bulge and vert ebral endplate spurring resulting in spinal canal stenosis with complete effacement of the subarachnoid space anterior and posterior to the cervical cord and mild cord flatte richard. Facet and uncovertebra l joint hypertrophy results in bilateral foraminal disease. No significant prevertebral soft tissue swelling or paravertebral hematoma formation is identified. IMPRESSION: 1. No CT evidence of acute cervical vertebral fr acture. 2. C5-C6 and C6-C7 spondylosis resulting in cerv ical canal stenosis. SL: 131 2015-10-12 [facility]-00:00 : 1955; Age: 60 years y/o Female MR: [id number] Study: Brain wo contrast CT 10/12/2015 11:10 PM C DT Clinical Indication: Head injury; Comparison: None TECHNIQUE: CT images were ob tained from the foramen magnum to the vertex without the use of intravenous contrast on a multidetector CT. Coronal and sagittal reconstructions were obtained. FINDINGS: BRAIN PARENCHYMA: Small old infarction seen to the lateral right frontal lobe. No evidence for subarachnoid, intraparenchymal or intraventricular hemorrhage. No significant extra-axial fluid collection, mass effect or shift. No evidence for an acute infarction. VENTRICLES: Ventricles are within normal limits for the patient's age. ORBITS, MASTOIDS AND PARANAS AL SINUSES: The visualized orbits and paranasal sinuses are unremarkable. The mastoid air cells are clear. SKULL: Patient is status post right frontal cran iotomy. If there is further concern for intracranial pathology or acute stroke, MRI of the brain may be performed for complete assessment. IMPRESSION: 1. Patient is status post right frontal cranioto my. 2. 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 3. Otherwise unremarkable head CT without contra st. SL: CSODERSTROM- 2015-10-12 CT of the cervical spine without contrast dated 10/12/2015. [facility] 23:20:08-00:00 HISTORY: Post traumatic cervical pain A CT of the cervical spine w as performed using thin slice noncontrast axial images with subsequent sagittal and coronal reconstruction. No prior studies are available for comparison. FINDINGS: There is no CT evidence of a cute cervical vertebral fracture. Cervical alignment and vertebral body height are maintained on the sagittal reconstruction images. At C5-C6 and C6-C7, the combination of an annular disc bulge and vert ebral endplate spurring resulting in spinal canal stenosis with complete effacement of the subarachnoid space anterior and posterior to the cervical cord and mild cord flatte richard. Facet and uncovertebra l joint hypertrophy results in bilateral foraminal disease. No significant prevertebral soft tissue swelling or paravertebral hematoma formation is identified. IMPRESSION: 1. No CT evidence of acute cervical vertebral fr acture. 2. C5-C6 and C6-C7 spondylosis resulting in cerv ical canal stenosis. SL: 131 2015-10-12 Patient Name: HARLEEN Padilla [facility] 23:20:08-00:00 : 1955; Age: 60 years y/o Female MR: [id number] Study: Brain wo contrast CT 10/12/2015 11:10 PM C DT Clinical Indication: Head injury; Comparison: None TECHNIQUE: CT images were ob tained from the foramen magnum to the vertex without the use of intravenous contrast on a multidetector CT. Coronal and sagittal reconstructions were obtained. FINDINGS: BRAIN PARENCHYMA: Small old infarction seen to the lateral right frontal lobe. No evidence for subarachnoid, intraparenchymal or intraventricular hemorrhage. No significant extra-axial fluid collection, mass effect or shift. No evidence for an acute infarction. VENTRICLES: Ventricles are within normal limits for the patient's age. ORBITS, MASTOIDS AND PARANAS AL SINUSES: The visualized orbits and paranasal sinuses are unremarkable. The mastoid air cells are clear. SKULL: Patient is status post right frontal cran iotomy. If there is further concern for intracranial pathology or acute stroke, MRI of the brain may be performed for complete assessment. IMPRESSION: 1. Patient is status post right frontal cranioto my. 2. 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 3. Otherwise unremarkable head CT without contra st. [facility] CT of the cervical spine without contrast dated 10/12/2015. [facility] 23:20:08-00:00 HISTORY: Post traumatic cervical pain A CT of the cervical spine w as performed using thin slice noncontrast axial images with subsequent sagittal and coronal reconstruction. No prior studies are available for comparison. FINDINGS: There is no CT evidence of a cute cervical vertebral fracture. Cervical alignment and vertebral body height are maintained on the sagittal reconstruction images. At C5-C6 and C6-C7, the combination of an annular disc bulge and vert ebral endplate spurring resulting in spinal canal stenosis with complete effacement of the subarachnoid space anterior and posterior to the cervical cord and mild cord flatte richard. Facet and uncovertebra l joint hypertrophy results in bilateral foraminal disease. No significant prevertebral soft tissue swelling or paravertebral hematoma formation is identified. IMPRESSION: 1. No CT evidence of acute cervical vertebral fr acture. 2. C5-C6 and C6-C7 spondylosis resulting in cerv ical canal stenosis. SL: 131 2015-10-12 Patient Name: HARLEEN Padilla [facility] 23:20:08-00:00 : 1955; Age: 60 years y/o Female MR: [id number] Study: Brain wo contrast CT 10/12/2015 11:10 PM C DT Clinical Indication: Head injury; Comparison: None TECHNIQUE: CT images were ob tained from the foramen magnum to the vertex without the use of intravenous contrast on a multidetector CT. Coronal and sagittal reconstructions were obtained. FINDINGS: BRAIN PARENCHYMA: Small old infarction seen to the lateral right frontal lobe. No evidence for subarachnoid, intraparenchymal or intraventricular hemorrhage. No significant extra-axial fluid collection, mass effect or shift. No evidence for an acute infarction. VENTRICLES: Ventricles are within normal limits for the patient's age. ORBITS, MASTOIDS AND PARANAS AL SINUSES: The visualized orbits and paranasal sinuses are unremarkable. The mastoid air cells are clear. SKULL: Patient is status post right frontal cran iotomy. If there is further concern for intracranial pathology or acute stroke, MRI of the brain may be performed for complete assessment. IMPRESSION: 1. Patient is status post right frontal cranioto my. 2. 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 3. Otherwise unremarkable head CT without contra st. SL: CSODERSTROM- 2015-10-12 CT of the cervical spine without contrast dated 10/12/2015. [facility] 23:20:08-00:00 HISTORY: Post traumatic cervical pain A CT of the cervical spine w as performed using thin slice noncontrast axial images with subsequent sagittal and coronal reconstruction. No prior studies are available for comparison. FINDINGS: There is no CT evidence of a cute cervical vertebral fracture. Cervical alignment and vertebral body height are maintained on the sagittal reconstruction images. At C5-C6 and C6-C7, the combination of an annular disc bulge and vert ebral endplate spurring resulting in spinal canal stenosis with complete effacement of the subarachnoid space anterior and posterior to the cervical cord and mild cord flatte richard. Facet and uncovertebra l joint hypertrophy results in bilateral foraminal disease. No significant prevertebral soft tissue swelling or paravertebral hematoma formation is identified. IMPRESSION: 1. No CT evidence of acute cervical vertebral fr acture. 2. C5-C6 and C6-C7 spondylosis resulting in cerv ical canal stenosis. SL: 131 2015-10-12 [facility] 23:20:08-00:00 : 1955; Age: 60 years y/o Female MR: [id number] Study: Brain wo contrast CT 10/12/2015 11:10 PM C DT Clinical Indication: Head injury; Comparison: None TECHNIQUE: CT images were ob tained from the foramen magnum to the vertex without the use of intravenous contrast on a multidetector CT. Coronal and sagittal reconstructions were obtained. FINDINGS: BRAIN PARENCHYMA: Small old infarction seen to the lateral right frontal lobe. No evidence for subarachnoid, intraparenchymal or intraventricular hemorrhage. No significant extra-axial fluid collection, mass effect or shift. No evidence for an acute infarction. VENTRICLES: Ventricles are within normal limits for the patient's age. ORBITS, MASTOIDS AND PARANAS AL SINUSES: The visualized orbits and paranasal sinuses are unremarkable. The mastoid air cells are clear. SKULL: Patient is status post right frontal cran iotomy. If there is further concern for intracranial pathology or acute stroke, MRI of the brain may be performed for complete assessment. IMPRESSION: 1. Patient is status post right frontal cranioto my. 2. 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 3. Otherwise unremarkable head CT without contra st. SL: CSODERSTROM- 2015-10-12 CT of the cervical spine without contrast dated 10/12/2015. [facility] 23:20:08-00:00 HISTORY: Post traumatic cervical pain A CT of the cervical spine w as performed using thin slice noncontrast axial images with subsequent sagittal and coronal reconstruction. No prior studies are available for comparison. FINDINGS: There is no CT evidence of a cute cervical vertebral fracture. Cervical alignment and vertebral body height are maintained on the sagittal reconstruction images. At C5-C6 and C6-C7, the combination of an annular disc bulge and vert ebral endplate spurring resulting in spinal canal stenosis with complete effacement of the subarachnoid space anterior and posterior to the cervical cord and mild cord flatte richard. Facet and uncovertebra l joint hypertrophy results in bilateral foraminal disease. No significant prevertebral soft tissue swelling or paravertebral hematoma formation is identified. IMPRESSION: 1. No CT evidence of acute cervical vertebral fr acture. 2. C5-C6 and C6-C7 spondylosis resulting in cerv ical canal stenosis. SL: 131 2015-10-12 [facility] 23:20:08-00:00 : 1955; Age: 60 years y/o Female MR: [id number] Study: Brain wo contrast CT 10/12/2015 11:10 PM C DT Clinical Indication: Head injury; Comparison: None TECHNIQUE: CT images were ob tained from the foramen magnum to the vertex without the use of intravenous contrast on a multidetector CT. Coronal and sagittal reconstructions were obtained. FINDINGS: BRAIN PARENCHYMA: Small old infarction seen to the lateral right frontal lobe. No evidence for subarachnoid, intraparenchymal or intraventricular hemorrhage. No significant extra-axial fluid collection, mass effect or shift. No evidence for an acute infarction. VENTRICLES: Ventricles are within normal limits for the patient's age. ORBITS, MASTOIDS AND PARANAS AL SINUSES: The visualized orbits and paranasal sinuses are unremarkable. The mastoid air cells are clear. SKULL: Patient is status post right frontal cran iotomy. If there is further concern for intracranial pathology or acute stroke, MRI of the brain may be performed for complete assessment. IMPRESSION: 1. Patient is status post right frontal cranioto my. 2. 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 3. Otherwise unremarkable head CT without contra st. SL: CSODERSTWILA 2015-10-12 CT of the cervical spine without contrast dated 10/12/2015. [facility] 23:20:08-00:00 HISTORY: Post traumatic cervical pain A CT of the cervical spine w as performed using thin slice noncontrast axial images with subsequent sagittal and coronal reconstruction. No prior studies are available for comparison. FINDINGS: There is no CT evidence of a cute cervical vertebral fracture. Cervical alignment and vertebral body height are maintained on the sagittal reconstruction images. At C5-C6 and C6-C7, the combination of an annular disc bulge and vert ebral endplate spurring resulting in spinal canal stenosis with complete effacement of the subarachnoid space anterior and posterior to the cervical cord and mild cord flatte richard. Facet and uncovertebra l joint hypertrophy results in bilateral foraminal disease. No significant prevertebral soft tissue swelling or paravertebral hematoma formation is identified. IMPRESSION: 1. No CT evidence of acute cervical vertebral fr acture. 2. C5-C6 and C6-C7 spondylosis resulting in cerv ical canal stenosis. SL: 131 2015-10-12 [facility]00 : 1955; Age: 60 years y/o Female MR: [id number] Study: Brain wo contrast CT 10/12/2015 11:10 PM C DT Clinical Indication: Head injury; Comparison: None TECHNIQUE: CT images were ob tained from the foramen magnum to the vertex without the use of intravenous contrast on a multidetector CT. Coronal and sagittal reconstructions were obtained. FINDINGS: BRAIN PARENCHYMA: Small old infarction seen to the lateral right frontal lobe. No evidence for subarachnoid, intraparenchymal or intraventricular hemorrhage. No significant extra-axial fluid collection, mass effect or shift. No evidence for an acute infarction. VENTRICLES: Ventricles are within normal limits for the patient's age. ORBITS, MASTOIDS AND PARANAS AL SINUSES: The visualized orbits and paranasal sinuses are unremarkable. The mastoid air cells are clear. SKULL: Patient is status post right frontal cran iotomy. If there is further concern for intracranial pathology or acute stroke, MRI of the brain may be performed for complete assessment. IMPRESSION: 1. Patient is status post right frontal cranioto my. 2. 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 3. Otherwise unremarkable head CT without contra st. SL: CSODERSMILTONOM- 2015-10-12 CT of the cervical spine without contrast dated 10/12/2015. [facility] 23:20:08-00:00 HISTORY: Post traumatic cervical pain A CT of the cervical spine w as performed using thin slice noncontrast axial images with subsequent sagittal and coronal reconstruction. No prior studies are available for comparison. FINDINGS: There is no CT evidence of a cute cervical vertebral fracture. Cervical alignment and vertebral body height are maintained on the sagittal reconstruction images. At C5-C6 and C6-C7, the combination of an annular disc bulge and vert ebral endplate spurring resulting in spinal canal stenosis with complete effacement of the subarachnoid space anterior and posterior to the cervical cord and mild cord flatte richard. Facet and uncovertebra l joint hypertrophy results in bilateral foraminal disease. No significant prevertebral soft tissue swelling or paravertebral hematoma formation is identified. IMPRESSION: 1. No CT evidence of acute cervical vertebral fr acture. 2. C5-C6 and C6-C7 spondylosis resulting in cerv ical canal stenosis. SL: 131 2015-10-12 Patient Name: HARLEEN Padilla [facility] 23:20:08-00:00 : 1955; Age: 60 years y/o Female MR: [id number] Study: Brain wo contrast CT 10/12/2015 11:10 PM C DT Clinical Indication: Head injury; Comparison: None TECHNIQUE: CT images were ob tained from the foramen magnum to the vertex without the use of intravenous contrast on a multidetector CT. Coronal and sagittal reconstructions were obtained. FINDINGS: BRAIN PARENCHYMA: Small old infarction seen to the lateral right frontal lobe. No evidence for subarachnoid, intraparenchymal or intraventricular hemorrhage. No significant extra-axial fluid collection, mass effect or shift. No evidence for an acute infarction. VENTRICLES: Ventricles are within normal limits for the patient's age. ORBITS, MASTOIDS AND PARANAS AL SINUSES: The visualized orbits and paranasal sinuses are unremarkable. The mastoid air cells are clear. SKULL: Patient is status post right frontal cran iotomy. If there is further concern for intracranial pathology or acute stroke, MRI of the brain may be performed for complete assessment. IMPRESSION: 1. Patient is status post right frontal cranioto my. 2. 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 3. Otherwise unremarkable head CT without contra st. SL: CSODERSTROM-PC 2015-10-12 CT of the cervical spine without contrast dated 10/12/2015. [facility] 23:20:08-00:00 HISTORY: Post traumatic cervical pain A CT of the cervical spine w as performed using thin slice noncontrast axial images with subsequent sagittal and coronal reconstruction. No prior studies are available for comparison. FINDINGS: There is no CT evidence of a cute cervical vertebral fracture. Cervical alignment and vertebral body height are maintained on the sagittal reconstruction images. At C5-C6 and C6-C7, the combination of an annular disc bulge and vert ebral endplate spurring resulting in spinal canal stenosis with complete effacement of the subarachnoid space anterior and posterior to the cervical cord and mild cord flatte richard. Facet and uncovertebra l joint hypertrophy results in bilateral foraminal disease. No significant prevertebral soft tissue swelling or paravertebral hematoma formation is identified. IMPRESSION: 1. No CT evidence of acute cervical vertebral fr acture. 2. C5-C6 and C6-C7 spondylosis resulting in cerv ical canal stenosis. SL: 131 2015-10-12 Patient Name: HARLEEN villanueva [place] 23:20:08-00:00 : 1955; Age: 60 years y/o Female MR: [id number] Study: Brain wo contrast CT 10/12/2015 11:10 PM C DT Clinical Indication: Head injury; Comparison: None TECHNIQUE: CT images were ob tained from the foramen magnum to the vertex without the use of intravenous contrast on a multidetector CT. Coronal and sagittal reconstructions were obtained. FINDINGS: BRAIN PARENCHYMA: Small old infarction seen to the lateral right frontal lobe. No evidence for subarachnoid, intraparenchymal or intraventricular hemorrhage. No significant extra-axial fluid collection, mass effect or shift. No evidence for an acute infarction. VENTRICLES: Ventricles are within normal limits for the patient's age. ORBITS, MASTOIDS AND PARANAS AL SINUSES: The visualized orbits and paranasal sinuses are unremarkable. The mastoid air cells are clear. SKULL: Patient is status post right frontal cran iotomy. If there is further concern for intracranial pathology or acute stroke, MRI of the brain may be performed for complete assessment. IMPRESSION: 1. Patient is status post right frontal cranioto my. 2. 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 3. Otherwise unremarkable head CT without contra st. SL: CSODERSTROM- 2015-10-12 CT of the cervical spine without contrast dated 10/12/2015. [facility] 23:20:08-00:00 HISTORY: Post traumatic cervical pain A CT of the cervical spine w as performed using thin slice noncontrast axial images with subsequent sagittal and coronal reconstruction. No prior studies are available for comparison. FINDINGS: There is no CT evidence of a cute cervical vertebral fracture. Cervical alignment and vertebral body height are maintained on the sagittal reconstruction images. At C5-C6 and C6-C7, the combination of an annular disc bulge and vert ebral endplate spurring resulting in spinal canal stenosis with complete effacement of the subarachnoid space anterior and posterior to the cervical cord and mild cord flatte richard. Facet and uncovertebra l joint hypertrophy results in bilateral foraminal disease. No significant prevertebral soft tissue swelling or paravertebral hematoma formation is identified. IMPRESSION: 1. No CT evidence of acute cervical vertebral fr acture. 2. C5-C6 and C6-C7 spondylosis resulting in cerv ical canal stenosis. SL: 131 2015-10-12 Patient Name: HARLEEN Padilla [facility] 23:20:08-00:00 : 1955; Age: 60 years y/o Female MR: [id number] Study: Brain wo contrast CT 10/12/2015 11:10 PM C DT Clinical Indication: Head injury; Comparison: None TECHNIQUE: CT images were ob tained from the foramen magnum to the vertex without the use of intravenous contrast on a multidetector CT. Coronal and sagittal reconstructions were obtained. FINDINGS: BRAIN PARENCHYMA: Small old infarction seen to the lateral right frontal lobe. No evidence for subarachnoid, intraparenchymal or intraventricular hemorrhage. No significant extra-axial fluid collection, mass effect or shift. No evidence for an acute infarction. VENTRICLES: Ventricles are within normal limits for the patient's age. ORBITS, MASTOIDS AND PARANAS AL SINUSES: The visualized orbits and paranasal sinuses are unremarkable. The mastoid air cells are clear. SKULL: Patient is status post right frontal cran iotomy. If there is further concern for intracranial pathology or acute stroke, MRI of the brain may be performed for complete assessment. IMPRESSION: 1. Patient is status post right frontal cranioto my. 2. 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 3. Otherwise unremarkable head CT without contra st. SL: CSODERSTROM- 2015-10-12 CT of the cervical spine without contrast dated 10/12/2015. [facility] 23:20:08-00:00 HISTORY: Post traumatic cervical pain A CT of the cervical spine w as performed using thin slice noncontrast axial images with subsequent sagittal and coronal reconstruction. No prior studies are available for comparison. FINDINGS: There is no CT evidence of a cute cervical vertebral fracture. Cervical alignment and vertebral body height are maintained on the sagittal reconstruction images. At C5-C6 and C6-C7, the combination of an annular disc bulge and vert ebral endplate spurring resulting in spinal canal stenosis with complete effacement of the subarachnoid space anterior and posterior to the cervical cord and mild cord flatte richard. Facet and uncovertebra l joint hypertrophy results in bilateral foraminal disease. No significant prevertebral soft tissue swelling or paravertebral hematoma formation is identified. IMPRESSION: 1. No CT evidence of acute cervical vertebral fr acture. 2. C5-C6 and C6-C7 spondylosis resulting in cerv ical canal stenosis. SL: 131 2015-10-12 Patient Name: HARLEEN Padilla [facility] 23:20:08-00:00 : 1955; Age: 60 years y/o Female MR: [id number] Study: Brain wo contrast CT 10/12/2015 11:10 PM C DT Clinical Indication: Head injury; Comparison: None TECHNIQUE: CT images were ob tained from the foramen magnum to the vertex without the use of intravenous contrast on a multidetector CT. Coronal and sagittal reconstructions were obtained. FINDINGS: BRAIN PARENCHYMA: Small old infarction seen to the lateral right frontal lobe. No evidence for subarachnoid, intraparenchymal or intraventricular hemorrhage. No significant extra-axial fluid collection, mass effect or shift. No evidence for an acute infarction. VENTRICLES: Ventricles are within normal limits for the patient's age. ORBITS, MASTOIDS AND PARANAS AL SINUSES: The visualized orbits and paranasal sinuses are unremarkable. The mastoid air cells are clear. SKULL: Patient is status post right frontal cran iotomy. If there is further concern for intracranial pathology or acute stroke, MRI of the brain may be performed for complete assessment. IMPRESSION: 1. Patient is status post right frontal cranioto my. 2. 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 3. Otherwise unremarkable head CT without contra st. [facility] CT of the cervical spine without contrast dated 10/12/2015. [facility] 23:20:08-00:00 HISTORY: Post traumatic cervical pain A CT of the cervical spine w as performed using thin slice noncontrast axial images with subsequent sagittal and coronal reconstruction. No prior studies are available for comparison. FINDINGS: There is no CT evidence of a cute cervical vertebral fracture. Cervical alignment and vertebral body height are maintained on the sagittal reconstruction images. At C5-C6 and C6-C7, the combination of an annular disc bulge and vert ebral endplate spurring resulting in spinal canal stenosis with complete effacement of the subarachnoid space anterior and posterior to the cervical cord and mild cord flatte richard. Facet and uncovertebra l joint hypertrophy results in bilateral foraminal disease. No significant prevertebral soft tissue swelling or paravertebral hematoma formation is identified. IMPRESSION: 1. No CT evidence of acute cervical vertebral fr acture. 2. C5-C6 and C6-C7 spondylosis resulting in cerv ical canal stenosis. SL: 131 2015-10-12 Patient Name: HARLEEN Padilla [facility] 23:20:08-00:00 : 1955; Age: 60 years y/o Female MR: [id number] Study: Brain wo contrast CT 10/12/2015 11:10 PM C DT Clinical Indication: Head injury; Comparison: None TECHNIQUE: CT images were ob tained from the foramen magnum to the vertex without the use of intravenous contrast on a multidetector CT. Coronal and sagittal reconstructions were obtained. FINDINGS: BRAIN PARENCHYMA: Small old infarction seen to the lateral right frontal lobe. No evidence for subarachnoid, intraparenchymal or intraventricular hemorrhage. No significant extra-axial fluid collection, mass effect or shift. No evidence for an acute infarction. VENTRICLES: Ventricles are within normal limits for the patient's age. ORBITS, MASTOIDS AND PARANAS AL SINUSES: The visualized orbits and paranasal sinuses are unremarkable. The mastoid air cells are clear. SKULL: Patient is status post right frontal cran iotomy. If there is further concern for intracranial pathology or acute stroke, MRI of the brain may be performed for complete assessment. IMPRESSION: 1. Patient is status post right frontal cranioto my. 2. 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 3. Otherwise unremarkable head CT without contra st. SL: CSODERSTROM- 2015-10-12 CT of the cervical spine without contrast dated 10/12/2015. [facility] 23:20:08-00:00 HISTORY: Post traumatic cervical pain A CT of the cervical spine w as performed using thin slice noncontrast axial images with subsequent sagittal and coronal reconstruction. No prior studies are available for comparison. FINDINGS: There is no CT evidence of a cute cervical vertebral fracture. Cervical alignment and vertebral body height are maintained on the sagittal reconstruction images. At C5-C6 and C6-C7, the combination of an annular disc bulge and vert ebral endplate spurring resulting in spinal canal stenosis with complete effacement of the subarachnoid space anterior and posterior to the cervical cord and mild cord flatte richard. Facet and uncovertebra l joint hypertrophy results in bilateral foraminal disease. No significant prevertebral soft tissue swelling or paravertebral hematoma formation is identified. IMPRESSION: 1. No CT evidence of acute cervical vertebral fr acture. 2. C5-C6 and C6-C7 spondylosis resulting in cerv ical canal stenosis. SL: 131 2015-10-12 Patient Name: HARLEEN Padilla [facility] 23:20:08-00:00 : 1955; Age: 60 years y/o Female MR: [id number] Study: Brain wo contrast CT 10/12/2015 11:10 PM C DT Clinical Indication: Head injury; Comparison: None TECHNIQUE: CT images were ob tained from the foramen magnum to the vertex without the use of intravenous contrast on a multidetector CT. Coronal and sagittal reconstructions were obtained. FINDINGS: BRAIN PARENCHYMA: Small old infarction seen to the lateral right frontal lobe. No evidence for subarachnoid, intraparenchymal or intraventricular hemorrhage. No significant extra-axial fluid collection, mass effect or shift. No evidence for an acute infarction. VENTRICLES: Ventricles are within normal limits for the patient's age. ORBITS, MASTOIDS AND PARANAS AL SINUSES: The visualized orbits and paranasal sinuses are unremarkable. The mastoid air cells are clear. SKULL: Patient is status post right frontal cran iotomy. If there is further concern for intracranial pathology or acute stroke, MRI of the brain may be performed for complete assessment.
--- NOTE | 2022-11-18 11:24 | RAD REPORT ---
EXAM DESCRIPTION: CT - Head Brain Wo Cont - 11/18/2022 11:07 am CLINICAL HISTORY: HEADACHE COMPARISON: Head Brain Wo Cont dated 07/30/2017; Head Brain Wo Cont dated 09/02/2016 TECHNIQUE: All CT scans are performed using dose optimization technique as appropriate and may inclu de automated exposure control or mA/KV adjustment according to patient size. FINDINGS: No intracranial hemorrhage, hydrocephalus or extra-axial fluid collection.No areas of brai n edema or evidence of midline shift. Right parietal craniotomy. The paranasal sinuses and mastoids are clear. The calvarium is intact. IMPRESSION: No acute intracranial abnormality.
[2022-11-18 11:51] LABS: Absolute Lymphocytes (CBC) 1.8 K/uL (0.7-4.9); Hematocrit 40.6 % (36.0-45.0); Lymphocytes % 16.8 % (15.3-44.8); MCV 89.1 fL (80-100); MPV 9.5 fL (7.6-11.3); Platelets 181 thou/uL (152-406); RBC Red Blood Cell Count 4.55 M/uL (3.86-4.86)
[2022-11-18 12:05] LABS: Specific Gravity 1.019 (1.005-1.030); Transitional Epithelial <5 /HPF (None Seen); Urine Bacteria 20-50 /HPF (<20); Urine Bilirubin NEGATIVE (Negative); Urine Blood 3+ (Negative); Urine Clarity Extremely Turbid (Clear); Urine Color Light-Orange (Yellow); Urine Glucose NEGATIVE (Negative); Urine Mucus Slight /HPF (None Seen); Urine Protein 1+ (Negative); Urine Urobilinogen Normal (Normal); Urine WBC Clump Occasional /HPF (None Seen); Urine pH 7.5 (5.0-7.0)
[2022-11-18 12:10] LABS: Albumin 3.6 g/dL (3.4-5.0); Bilirubin Total 0.5 mg/dL (0.2-1.0); Potassium 3.7 mEq/L (3.5-5.1); Protein, Total 7.5 g/dL (6.4-8.2)
[2022-11-18] MEDS ORDERED: WATER FOR INJ,STERILE 10 ML ONE (13:11)
[2022-11-18] MEDS ORDERED: levoFLOXacin 750 MG TAB ONE (13:11)
[2022-11-18] MEDS ORDERED: CEFTRIAXONE 1000 MG/VIAL ONE (13:11)
[2022-11-18] MEDS ORDERED: ACETAMINOPHEN 500 MG TAB ONE (13:13)
--- NOTE | 2022-11-18 13:41 | ER ---
Nurse's Notes [facility] Name: Sofia Syed Age: 67 yrs Sex: Female : 1955 Arrival Date: 11/18/2022 Time: 09:46 Bed 6 Private MD: Diagnosis: Type 2 diabetes mellitus with hyperglycemia;Headache;UTI/ Urinary tract infection, site not specified Presentation: 11/18 09:49 Chief complaint: Patient states: Pt reports headache, neck pain for past two days. rs5 Coronavirus screen: At this time, the client does not indicate any symptoms associated with coronavirus-19. Ebola Screen: No symptoms or risks identified at this time. Risk Assessment: Do you want to hurt yourself or someone else? Patient reports no desire to harm self or others. 09:49 Method Of Arrival: Ambulatory rs5 09:53 Initial Sepsis Screen: Does the patient meet any 2 criteria? No. Patient's initial rs5 sepsis screen is negative. Does the patient have a suspected source of infection? No. Patient's initial sepsis screen is negative. Onset of symptoms was November 16, 2022. 09:53 Acuity: GILBERTO 2 rs5 Triage Assessment: 10:00 Headache History: Other Longer than usual. nj1 Historical: - Allergies: 09:53 PENICILLINS; rs5 - PMHx: 09:53 Diabetes - NIDDM; Dyspepsia; Hypertension; lymphedema; rs5 - PSHx: 09:56 Three brain tumors removed; Cholecystectomy; rs5 - Immunization history:: Adult Immunizations up to date. - Social history:: Smoking status: Patient denies any tobacco usage or history of. - Family history:: not pertinent. Screenin:00 [facility] ED Fall Risk Assessment (Adult) Score/Fall Risk Level 0 - 2 = Low Risk nj1 Oriented to surroundings, Maintained a safe environment, Hourly rounding (assess needs \T\ fall precautionary measures) done. Abuse screen: Denies threats or abuse. Denies injuries from another. Nutritional screening: No deficits noted. Tuberculosis screening: No symptoms or risk factors identified. Assessment: 10:00 General: Appears in no apparent distress. comfortable, Behavior is calm, cooperative, nj1 appropriate for age. Pain: Complains of pain in Head Pain currently is 10 out of 10 on a pain scale. Neuro: Level of Consciousness is awake, alert, obeys commands, Oriented to person, place, time, situation. Cardiovascular: Patient's skin is warm and dry. Respiratory: Airway is patent Respiratory effort is even, unlabored. Vital Signs: 09:53 BP 187 / 68; Pulse 75; Resp 17; Temp 97.7; Pulse Ox 99% on R/A; Weight 70.31 kg (R); rs5 Height 5 ft. 7 in. ; 10:30 BP 174 / 76; Pulse 64; Resp 18; Pulse Ox 99% ; Pain 10/10; nj1 09:53 Body Mass Index 24.28 (70.31 kg, 170.18 cm) rs5 10:30 Pain Scale: Adult nj1 Michael Coma Score: 13:36 Eye Response: spontaneous(4). Motor Response: obeys commands(6). Verbal Response: rj oriented(5). Total: 15. 13:36 Eye Response: spontaneous(4). Motor Response: obeys commands(6). Verbal Response: rj oriented(5). Total: 15. ED Course: 09:48 Patient arrived in ED. rg4 09:56 Triage completed. rs5 10:00 Arm band placed on. nj1 10:00 Provided Education on: Call light, fall precautions. nj1 10:00 Patient has correct armband on for positive identification. Bed in low position. Call nj1 light in reach. Adult w/ patient. 10:03 Jackeline Douglas, RN is Primary Nurse. nj1 10:04 Volodymyr Cancino MD is Attending Physician. rj 11:09 CT Head Brain wo Cont In Process Unspecified. EDMS 12:01 Missed attempt(s): 22 gauge in left forearm. Bleeding controlled, band aid applied, ph catheter tip intact. 13:39 Kemal Mix MD is Referral Physician. rj 14:08 No provider procedures requiring assistance completed. Patient did not have IV access ph during this emergency room visit. Administered Medications: 12:50 Not Given (Patient Refused): NS 0.9% IV 500 ml IV at bolus once ph 12:50 Not Given (Patient Refused): Ketorolac IVP 30 mg IVP once ph 12:50 Not Given (Patient Refused): diphenhydrAMINE IVP 25 mg IVP once ph 12:50 Not Given (Patient Refused): metoCLOPramide IVP 10 mg IVP once; over 1 to 2 minutes ph 13:17 Drug: Rocephin IV 1 grams Route: IV; Rate: per protocol; Site: Other; ph 13:17 Drug: LevOfloxacin PO 750 mg Route: PO; ph Medication: 11:53 VIS not applicable for this client. ph Outcome: 13:41 Discharge ordered by . rj 14:08 Discharged to home ambulatory, with significant other. ph 14:08 Condition: good 14:08 Discharge instructions given to patient, significant other, Instructed on discharge instructions, follow up and referral plans. medication usage, Demonstrated understanding of instructions, follow-up care, medications, Prescriptions given X 4. 14:09 Patient left the ED. ph Signatures: Dispatcher [employer] EDMS Volodymyr Cancino MD MD cha Hall, Patricia RN RN Jeanine Estrella rg4 Felix Kamara RN RN rs5 Jackeline Douglas RN RN nj1 Corrections: (The following items were deleted from the chart) 09:57 09:56 PSHx: Colectomy; rs5 rs5
--- NOTE | 2022-11-18 13:41 | EDPHYS ---
Physician Documentation [facility] Name: Sofia Syed Age: 67 yrs Sex: Female : 1955 Arrival Date: 11/18/2022 Time: 09:46 Bed 6 Private MD: ED Physician Volodymyr Cancino HPI: 11/18 13:33 This 67 yrs old Female presents to ER via Ambulatory with complaints of rj Headache, Dizziness, Back Pain, Eye Swelling. 13:33 The patient complains of pain to the top of head and forehead. The patient describes rj the headache as constant, intermittent. Onset: The symptoms/episode began/occurred 2 day(s) ago. Associated signs and symptoms: Pertinent positives: nausea. Severity of symptoms: At its worst the pain was moderate, in the emergency department the pain is unchanged. Headache History: The patient has had previous headaches and this one is similar to previous episodes. The symptoms are alleviated by nothing. the symptoms are aggravated by nothing. The patient has experienced similar episodes in the past, several times. Historical: - Allergies: 09:53 PENICILLINS; rs5 - PMHx: 09:53 Diabetes - NIDDM; Dyspepsia; Hypertension; lymphedema; rs5 - PSHx: 09:56 Three brain tumors removed; Cholecystectomy; rs5 - Immunization history:: Adult Immunizations up to date. - Social history:: Smoking status: Patient denies any tobacco usage or history of. - Family history:: not pertinent. ROS: 13:33 Constitutional: Negative for fever, chills, and weight loss, Eyes: Negative for injury, rj pain, redness, and discharge, ENT: Negative for injury, pain, and discharge, Neck: Negative for injury, pain, and swelling, Cardiovascular: Negative for chest pain, palpitations, and edema, Respiratory: Negative for shortness of breath, cough, wheezing, and pleuritic chest pain, Abdomen/GI: Negative for abdominal pain, nausea, vomiting, diarrhea, and constipation, Back: Negative for injury and pain, : Negative for injury, bleeding, discharge, and swelling, MS/Extremity: Negative for injury and deformity, Skin: Negative for injury, rash, and discoloration, Psych: Negative for depression, anxiety, suicide ideation, homicidal ideation, and hallucinations, Allergy/Immunology: Negative for hives, rash, and allergies, Endocrine: Negative for neck swelling, polydipsia, polyuria, polyphagia, and marked weight changes, Hematologic/Lymphatic: Negative for swollen nodes, abnormal bleeding, and unusual bruising. 13:33 Neuro: Positive for headache. Exam: 13:33 Constitutional: This is a well developed, well nourished patient who is awake, alert, rj and in no acute distress. Head/Face: Normocephalic, atraumatic. Eyes: Pupils equal round and reactive to light, extra-ocular motions intact. Lids and lashes normal. Conjunctiva and sclera are non-icteric and not injected. Cornea within normal limits. Periorbital areas with no swelling, redness, or edema. ENT: Nares patent. No nasal discharge, no septal abnormalities noted. Tympanic membranes are normal and external auditory canals are clear. Oropharynx with no redness, swelling, or masses, exudates, or evidence of obstruction, uvula midline. Mucous membranes moist. Neck: Trachea midline, no thyromegaly or masses palpated, and no cervical lymphadenopathy. Supple, full range of motion without nuchal rigidity, or vertebral point tenderness. No Meningismus. Chest/axilla: Normal chest wall appearance and motion. Nontender with no deformity. No lesions are appreciated. Cardiovascular: Regular rate and rhythm with a normal S1 and S2. No gallops, murmurs, or rubs. Normal PMI, no JVD. No pulse deficits. Respiratory: Lungs have equal breath sounds bilaterally, clear to auscultation and percussion. No rales, rhonchi or wheezes noted. No increased work of breathing, no retractions or nasal flaring. Abdomen/GI: Soft, non-tender, with normal bowel sounds. No distension or tympany. No guarding or rebound. No evidence of tenderness throughout. Back: No spinal tenderness. No costovertebral tenderness. Full range of motion. Skin: Warm, dry with normal turgor. Normal color with no rashes, no lesions, and no evidence of cellulitis. MS/ Extremity: Pulses equal, no cyanosis. Neurovascular intact. Full, normal range of motion. Neuro: Awake and alert, GCS 15, oriented to person, place, time, and situation. Cranial nerves II-XII grossly intact. Motor strength 5/5 in all extremities. Sensory grossly intact. Cerebellar exam normal. Normal gait. Psych: Awake, alert, with orientation to person, place and time. Behavior, mood, and affect are within normal limits. Vital Signs: 09:53 BP 187 / 68; Pulse 75; Resp 17; Temp 97.7; Pulse Ox 99% on R/A; Weight 70.31 kg (R); rs5 Height 5 ft. 7 in. ; 10:30 BP 174 / 76; Pulse 64; Resp 18; Pulse Ox 99% ; Pain 10/10; nj1 09:53 Body Mass Index 24.28 (70.31 kg, 170.18 cm) rs5 10:30 Pain Scale: Adult nj1 Bowler Coma Score: 13:36 Eye Response: spontaneous(4). Motor Response: obeys commands(6). Verbal Response: rj oriented(5). Total: 15. 13:36 Eye Response: spontaneous(4). Motor Response: obeys commands(6). Verbal Response: rj oriented(5). Total: 15. MDM: 10:04 Patient medically screened. rj 13:36 Differential diagnosis: cluster headache, migraine, neoplasm, sinusitis, subarachnoid rj bleed, subdural hematoma, temporal arteritis, tension headache, trigeminal neuralgia, uremia, vasomotor headache. Data reviewed: vital signs, nurses notes, lab test result(s), radiologic studies, CT scan. I considered the following discharge prescriptions or medication management in the emergency department Medications were administered in the Emergency Department. See MAR. Test considered but Not performed: MRI: no mri brain. Care significantly affected by the following chronic conditions: Diabetes, Hypertension. 11/18 10:58 Order name: CBC with Diff; Complete Time: 12:37 [facility] 11/18 10:58 Order name: Comprehensive Metabolic Panel; Complete Time: 12:37 rj 11/18 10:58 Order name: Urinalysis w/ reflexes; Complete Time: 12:37 [facility] 11/18 12:09 Order name: Urine Culture EDMS 11/18 10:58 Order name: CT Head Brain wo Cont; Complete Time: 12:37 [facility] Administered Medications: 12:50 Not Given (Patient Refused): NS 0.9% IV 500 ml IV at bolus once ph 12:50 Not Given (Patient Refused): Ketorolac IVP 30 mg IVP once ph 12:50 Not Given (Patient Refused): diphenhydrAMINE IVP 25 mg IVP once ph 12:50 Not Given (Patient Refused): metoCLOPramide IVP 10 mg IVP once; over 1 to 2 minutes ph 13:17 Drug: Rocephin IV 1 grams Route: IV; Rate: per protocol; Site: Other; ph 13:17 Drug: LevOfloxacin PO 750 mg Route: PO; ph Disposition Summary: 11/18/22 13:41 Discharge Ordered Location: Home [facility] Problem: new rj Symptoms: have improved rj Condition: Stable rj Diagnosis - Type 2 diabetes mellitus with hyperglycemia rj - Headache rj - UTI/ Urinary tract infection, site not specified rj Followup: rj - With: Private Physician - When: 2 - 3 days - Reason: Recheck today's complaints, Continuance of care, Re-evaluation by your physician Followup: rj - With: Kemal Mix MD - When: 2 - 3 days - Reason: Recheck today's complaints, Continuance of care, Re-evaluation by your physician Discharge Instructions: - Discharge Summary Sheet rj - Type 2 Diabetes Mellitus, Diagnosis, Adult [facility] - General Headache Without Cause rj - Urinary Tract Infection, Adult rj - Urinary Tract Infection, Adult, [id number] [facility] - Diabetes Mellitus and Nutrition, Adult rj - General Headache Without Cause, [id number] [facility] Forms: - Medication Reconciliation Form [facility] - Thank You Letter [facility] - Antibiotic Education [facility] - Prescription Opioid Use [facility] - Patient Portal Instructions [facility] - Leadership Thank You Letter [facility] Prescriptions: - Fioricet with Codeine 04-632-14-30 mg Oral capsule - take 2 capsule by ORAL route every 4 hours do not exceed 6 caps per day; 15 [facility] capsule; Refills: 0, Product Selection Permitted - Zofran 4 mg Oral Tablet - take 1 tablet by ORAL route every 12 hours As needed; 20 tablet; Refills: 0, [facility] Product Selection Permitted - Bactrim DS 800-160 mg Oral Tablet - take 1 tablet by ORAL route every 12 hours for 3 days; 6 tablet; Refills: 0, [facility] Product Selection Permitted - levofloxacin 500 mg Oral Tablet - take 1 tablet by ORAL route once daily for 7 days; 7 tablet; Refills: 0, [facility] Product Selection Permitted Signatures: Dispatcher [employer] Volodymyr Zambrano MD MD cha Hall, Patricia RN RN Felix Kamara RN RN rs5 Corrections: (The following items were deleted from the chart) 09:57 09:56 PSHx: Colectomy; rs5 rs5
[2022-11-18 14:17] VITALS: TEMP 97.7; O2SAT 99
[2022-11-18 14:19] VITALS: BP 174/76
== END 2022-11-18 14:09 | disposition home or self-care (01) ==
LOC: ER 09:46
DX: E11.65 Type 2 diabetes mellitus with hyperglycemia (principal); N39.0 Urinary tract infection, site not specified; I10 Essential (primary) hypertension; Z88.0 Allergy status to penicillin
CPT/HCPCS: 87088; 85025; 81001; 87086; 36415; 80053; 70450; 96374; 99284; J0696; 87077; 87186

== ENCOUNTER 2024-01-01 14:29 | Emergency (ER) | payer MEDICARE, OTHER ==
[2024-01-01] MEDS ORDERED: ONDANSETRON 4 MG/2 ML VIAL ONE (15:56)
[2024-01-01] MEDS ORDERED: FAMOTIDINE 20 MG/2 ML VIAL IV ONE (15:56)
[2024-01-01 16:17] LABS: Specific Gravity 1.012 (1.005-1.030); Sqamous Epithelial None Seen /HPF (None Seen); Urine Bacteria None Seen /HPF (<20); Urine Bilirubin NEGATIVE (Negative); Urine Blood Negative (Negative); Urine Clarity Extremely Turbid (Clear); Urine Color Yellow (Yellow); Urine Crystals Unidentified Few /HPF (None Seen); Urine Culture Reflex Order NOT NEEDED; Urine Glucose NEGATIVE (Negative); Urine Ketones NEGATIVE (Negative); Urine Microscopic Reflex YN ORDER UMIC; Urine Mucus Slight /HPF (None Seen); Urine Nitrite NEGATIVE (Negative); Urine Protein NEGATIVE (Negative); Urine RBC <5 /HPF (None Seen); Urine Urobilinogen Normal (Normal); Urine WBC <5 /HPF (<5); Urine Yeast (Budding) Many /HPF (None Seen); Urine pH 7.5 (5.0-7.0)
[2024-01-01 16:24] LABS: Absolute Eosinophils 0.1 K/uL (0-0.5); Absolute Lymphocytes (CBC) 1.8 K/uL (0.7-4.9); Absolute Monocytes 0.5 K/uL (0.1-1.3); Absolute Neutrophil 4.4 K/uL (1.8-8.0); Basophils % 0.4 % (0-1.3); Eosinophils % 1.5 % (0-4.4); Hematocrit 39.7 % (36.0-45.0); Hemoglobin 13.3 g/dL (12.0-15.0); Lymphocytes % 26.1 % (15.3-44.8); MCH 30.4 pg (27.0-35.0); MCHC 33.3 g/dL (32.0-36.0); MCV 91.2 fL (80-100); MPV 9.8 fL (7.6-11.3); Monocytes % 7.2 % (3.3-12.3); Neutrophils % 64.8 % (41.7-73.7); Platelets 193 thou/uL (152-406); RBC Red Blood Cell Count 4.36 M/uL (3.86-4.86); Red Cell Distribution Width 13.3 % (12.1-15.2)
[2024-01-01 16:40] LABS: Albumin 3.8 g/dL (3.4-5.0); Anion Gap 7.6 mEq/L (5.0-15.0); Bilirubin Total 0.6 mg/dL (0.2-1.0); Globulin 3.9 g/dL (2.3-3.5); Potassium 3.6 mEq/L (3.5-5.1); Protein, Total 7.7 g/dL (6.4-8.2)
--- NOTE | 2024-01-01 18:24 | RAD REPORT ---
EXAMINATION: CT ABDOMEN AND PELVIS WITH CONTRAST CLINICAL INDICATION: EPIGASTRIC PAIN TECHNIQUE: CT abdomen and pelvis was performed, after the administration of IV contrast, as per [facility] protocol. Axial, sagittal and coronal reconstructions were obtained. One or more of the following dose reduction techniques were used: Automated exposure control, adjustment of the mA and k V according to patient size, and iterative reconstruction. Unless otherwise specified, incidental findings do not require dedicated imaging follow-up. COMPARISON: 11/23/2017 FINDINGS: LOWER CHEST: Vague nodular density seen right lung base. LIVER: Normal in size and contour. No focal lesion. Cholecystectomy. SPLEEN: Normal size. No focal lesion. PANCREAS: No mass, ductal dilation, or mey-pancreatic fluid. ADRENALS: Normal; no mass. KIDNEYS: Normal size and contour. No hydronephrosis. Large left renal cyst measuring 9 cm. Moderate s ize right renal cyst. These are benign in appearance. GASTROINTESTINAL TRACT: No evidence of free air, significant intra-abdominal free fluid, bowel obstru ction or abscess. Moderate stool retention in the colon with mild sigmoid diverticulosis coli. APPENDIX: Normal appendix. LYMPH NODES: No lymphadenopathy. MUSCULOSKELETAL: No acute or suspicious osseous abnormality. ADDITIONAL FINDINGS: None. IMPRESSION: No acute or concerning abnormalities seen in the abdomen or pelvis.
--- NOTE | 2024-01-01 18:50 | ER ---
Nurse's Notes [facility] Name: Sofia Syed Age: 68 yrs Sex: Female : 1955 Arrival Date: 01/01/2024 Time: 14:29 Bed 7 Private MD: Diagnosis: Epigastric pain;Vomiting, unspecified Presentation: 12/31 15:07 Chief complaint: Patient states: Epigastric pain X1 week. Pt states that the pain is cm10 worse after eating. Pt reports nausea and vomiting with 1 episode of diarrhea. Coronavirus screen: Client denies travel out of the [place] in the last 14 days. Ebola Screen: Patient denies travel to an Ebola-affected area in the 21 days before illness onset. No symptoms or risks identified at this time. Initial Sepsis Screen: Does the patient meet any 2 criteria? No. Patient's initial sepsis screen is negative. Does the patient have a suspected source of infection? No. Patient's initial sepsis screen is negative. Risk Assessment: Do you want to hurt yourself or someone else? Patient reports no desire to harm self or others. Onset of symptoms was January 01, 2024. 15:07 Method Of Arrival: Ambulatory cm10 15:07 Acuity: GILBERTO 3 cm10 Triage Assessment: 15:09 General: Appears in no apparent distress. comfortable, Behavior is calm, cooperative. cm10 Neuro: No deficits noted. Level of Consciousness is awake, alert, obeys commands, Oriented to person, place, time, situation, Appropriate for age. Respiratory: No deficits noted. Airway is patent Respiratory effort is even, unlabored, Respiratory pattern is regular, symmetrical. GI: Reports diarrhea, epigastric pain, nausea, vomiting. Historical: - Allergies: 15:09 PENICILLINS; cm10 - PMHx: 15:09 Diabetes - NIDDM; Dyspepsia; Hypertension; lymphedema; cm10 - PSHx: 15:09 Cholecystectomy; Three brain tumors removed; cm10 - Immunization history:: Adult Immunizations up to date. - Infectious Disease History:: Denies. - Social history:: Smoking status: Patient denies any tobacco usage or history of. Screenin:05 [facility] ED Fall Risk Assessment (Adult) History of falling in the last 3 months, mb9 including since admission No falls in past 3 months (0 pts) Confusion or Disorientation No (0 pts) Intoxicated or Sedated No (0 pts) Impaired Gait No (0 pts) Mobility Assist Device Used No (0 pt) Altered Elimination No (0 pt) Score/Fall Risk Level 0 - 2 = Low Risk Oriented to surroundings, Maintained a safe environment, Educated pt \T\ family on fall prevention, incl call for assistance when getting out of bed. Abuse screen: Denies threats or abuse. Nutritional screening: No deficits noted. Tuberculosis screening: No symptoms or risk factors identified. Assessment: 16:06 General: Appears in no apparent distress. Behavior is calm, cooperative. Pain: mb9 Complains of pain in abdomen Pain does not radiate. Pain currently is 7 out of 10 on a pain scale. Quality of pain is described as throbbing, Pain began suddenly, Is continuous. Neuro: Sotomayor Agitation-Sedation Scale (RASS): 0 - Alert and Calm Level of Consciousness is awake, alert, obeys commands, Oriented to person, place, time, situation, Appropriate for age. Cardiovascular: Patient's skin is warm and dry. Respiratory: Airway is patent Respiratory effort is even, unlabored, Respiratory pattern is regular, symmetrical. GI: Abdomen is flat, non-distended, Bowel sounds present X 4 quads. Abd is soft Abdomen is tender to palpation in epigastric area Reports lower abdominal pain, diarrhea, nausea, vomiting. : No signs and/or symptoms were reported regarding the genitourinary system. EENT: No signs and/or symptoms were reported regarding the EENT system. Derm: Skin is pink, warm \T\ dry. Derm: Musculoskeletal: Range of motion: intact in all extremities. 17:15 Reassessment: No changes from previously documented assessment. Patient and/or family mb9 updated on plan of care and expected duration. Pain level reassessed. Patient is alert, oriented x 3, equal unlabored respirations, skin warm/dry/pink. 18:24 Reassessment: No changes from previously documented assessment. Patient and/or family me1 updated on plan of care and expected duration. Pain level reassessed. Patient is alert, oriented x 3, equal unlabored respirations, skin warm/dry/pink. Vital Signs: 15:07 BP 176 / 86; Pulse 65; Resp 16; Temp 98.5(O); Pulse Ox 100% ; Weight 63.5 kg; Height 5 cm10 ft. 7 in. ; Pain 5/10; 17:16 BP 151 / 64; Pulse 75; Resp 16; Pulse Ox 100% on R/A; mb9 19:05 BP 150 / 60; Pulse 70; Resp 18 S; Pulse Ox 100% on R/A; Pain 0/10; br2 15:07 Body Mass Index 21.93 (63.50 kg, 170.18 cm) cm10 15:07 Pain Scale: Adult cm10 19:05 Pain Scale: Adult br2 ED Course: 14:34 Patient arrived in ED. sj2 14:43 Volodymyr Menard PA is PHCP. cp 14:43 Volodymyr Cancino MD is Attending Physician. cp 15:09 Triage completed. cm10 15:09 Arm band placed on right wrist. Patient placed in waiting room. cm10 15:53 Sammi Blancas, JOSIANE is Primary Nurse. mb9 16:05 Placed in gown. Bed in low position. Call light in reach. Side rails up X 1. Provided mb9 Education on: press call light if needing anything. Client placed on continuous cardiac and pulse oximetry monitoring. NIBP monitoring applied. 16:05 Urine collected: clean catch specimen, cloudy. mb9 16:07 No provider procedures requiring assistance completed. mb9 16:08 Urinalysis w/ reflexes Sent. mb9 16:15 Initial lab(s) drawn, by me, sent to lab. Inserted saline lock: 20 gauge in right mb9 antecubital area, using aseptic technique. Blood collected. Flushed with 10 mL NS. 18:06 CT Abd/Pelvis - IV Contrast Only In Process Unspecified. EDMS 18:48 Ranjeet Jaquez MD is Referral Physician. cp 19:11 IV discontinued, intact, bleeding controlled, No redness/swelling at site. Pressure br2 dressing applied. Administered Medications: 16:15 Drug: Famotidine IVP 20 mg IVP once; dilute with 10 mL 0.9% NaCl; give over 2 minutes mb9 Route: IVP; Site: right antecubital; 18:24 Follow up: Response: No adverse reaction me1 16:15 Drug: Ondansetron IVP 4 mg IVP once; over 2 minutes Route: IVP; Site: right antecubital;mb9 18:24 Follow up: Response: No adverse reaction me1 Medication: 16:06 VIS not applicable for this client. mb9 Outcome: 18:49 Discharge ordered by . mert 19:11 Discharged to home br2 19:11 Condition: improved 19:11 Discharge instructions given to patient, Instructed on discharge instructions, follow up and referral plans. medication usage, Demonstrated understanding of Prescriptions given X 2, 19:18 Patient left the ED. br2 Signatures: Dispatcher [employer] EDMS Volodymyr Menard PA PA cp Wilkerson, Mary Beth RN RN mb9 Denia Barber RN RN cm10 Kathy Crockett RN RN me1 Azra Tovar RN RN br2 Luis Daniel Peters 2
--- NOTE | 2024-01-01 18:50 | EDPHYS ---
Physician Documentation [facility] Name: Sofia Syed Age: 68 yrs Sex: Female : 1955 Arrival Date: 01/01/2024 Time: 14:29 Bed 7 Private MD: ED Physician Volodymyr Cancino HPI: 12/31 15:05 This 68 yrs old Female presents to ER via Ambulatory with complaints of cp Abdominal Pain, Vomiting. 15:05 The patient presents with abdominal pain in the epigastric area. cp 15:05 Onset: The symptoms/episode began/occurred 2 week(s) ago. The symptoms do not radiate. cp Associated signs and symptoms: Pertinent positives: nausea and vomiting, anorexia, weight loss, Pertinent negatives: chest pain, constipation, diarrhea, fever. 15:05 The symptoms are described as waxing/waning. cp 15:05 Modifying factors: the symptoms are aggravated by food. cp Historical: - Allergies: 15:09 PENICILLINS; cm10 - PMHx: 15:09 Diabetes - NIDDM; Dyspepsia; Hypertension; lymphedema; cm10 - PSHx: 15:09 Cholecystectomy; Three brain tumors removed; cm10 - Immunization history:: Adult Immunizations up to date. - Infectious Disease History:: Denies. - Social history:: Smoking status: Patient denies any tobacco usage or history of. ROS: 15:10 Constitutional: Positive for weight loss, cp 15:10 Eyes: Negative for injury, pain, redness, and discharge, cp 15:10 ENT: Negative for drainage from ear(s), ear pain, sore throat, difficulty swallowing, difficulty handling secretions, 15:10 Cardiovascular: Negative for chest pain, edema, palpitations, 15:10 Respiratory: Negative for cough, shortness of breath, wheezing, 15:10 Abdomen/GI: Positive for abdominal pain, nausea and vomiting, of the epigastric area, Negative for diarrhea, constipation, hematemesis, 15:10 Neuro: Negative for altered mental status, dizziness, headache, weakness, Exam: 15:15 Constitutional: The patient appears in no acute distress, alert, awake, cp non-diaphoretic, non-toxic, well developed, well nourished, 15:15 Head/Face: Normocephalic, atraumatic. cp 15:15 Eyes: Periorbital structures: appear normal, Conjunctiva: normal, no exudate, no injection, Sclera: no appreciated abnormality, Lids and lashes: appear normal, bilaterally, 15:15 ENT: External ear(s): are unremarkable, Nose: is normal, Mouth: Lips: moist, Oral mucosa: moist, Posterior pharynx: Airway: no evidence of obstruction, patent, 15:15 Chest/axilla: Inspection: normal, 15:15 Cardiovascular: Rate: normal, Rhythm: regular, 15:15 Respiratory: the patient does not display signs of respiratory distress, Respirations: normal, no use of accessory muscles, no retractions, labored breathing, is not present, Breath sounds: are clear throughout, no decreased breath sounds, no stridor, no wheezing, 15:15 Abdomen/GI: Inspection: abdomen appears normal, Bowel sounds: active, all quadrants, Palpation: soft, in all quadrants, mild abdominal tenderness, in the epigastric area, rebound tenderness, is not appreciated, voluntary guarding, is elicited in the epigastric area, 15:15 Back: CVA tenderness, is absent, Vital Signs: 15:07 BP 176 / 86; Pulse 65; Resp 16; Temp 98.5(O); Pulse Ox 100% ; Weight 63.5 kg; Height 5 cm10 ft. 7 in. ; Pain 5/10; 17:16 BP 151 / 64; Pulse 75; Resp 16; Pulse Ox 100% on R/A; mb9 19:05 BP 150 / 60; Pulse 70; Resp 18 S; Pulse Ox 100% on R/A; Pain 0/10; br2 15:07 Body Mass Index 21.93 (63.50 kg, 170.18 cm) cm10 15:07 Pain Scale: Adult cm10 19:05 Pain Scale: Adult br2 MDM: 16:00 Differential diagnosis: gastritis, gastroesophageal reflux disease, pancreatitis, cp Peptic Ulcer Disease, Perf. Duodenal Ulcer, Perf. Gastric Ulcer, Pyelonephritis, Ureterolithiasis, urinary tract infection, choledocholithiasis. 16:[address] [facility] 18:48 Data reviewed: vital signs, nurses notes, radiologic studies, CT scan, and as a result, I will discharge patient. 18:48 I considered the following discharge prescriptions or medication management in the emergency department Medications were administered in the Emergency Department. See MAR. 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 Response to treatment: the patient's symptoms have mildly improved after treatment, and as a result, I will discharge patient. Special discussion: Based on the patient's Hx, exam, and Dx evaluation, there is no indication for emergent surgery or inpatient Tx. It is understood by the patient/guardian that if the Sx's persist or worsen they need to return immediately for re-evaluation. 12/31 15:03 Order name: CBC with Diff; Complete Time: 16:46 cp 12/31 15:03 Order name: CMP; Complete Time: 16:46 cp 12/31 15:03 Order name: Lipase; Complete Time: 16:46 cp 12/31 15:03 Order name: Urinalysis w/ reflexes; Complete Time: 16:46 cp 12/31 17:29 Order name: CT Abd/Pelvis - IV Contrast Only; Complete Time: 18:27 cp 12/31 18:28 Interpretation: Report reviewed. cp 12/31 15:03 Order name: IV Saline Lock; Complete Time: 16:15 cp 12/31 15:03 Order name: Labs collected and sent; Complete Time: 16:15 cp Administered Medications: 16:15 Drug: Famotidine IVP 20 mg IVP once; dilute with 10 mL 0.9% NaCl; give over 2 minutes mb9 Route: IVP; Site: right antecubital; 18:24 Follow up: Response: No adverse reaction me1 16:15 Drug: Ondansetron IVP 4 mg IVP once; over 2 minutes Route: IVP; Site: right antecubital;mb9 18:24 Follow up: Response: No adverse reaction me1 Disposition Summary: 01/01/24 18:49 Discharge Ordered Notes: Location: Home cp Problem: new cp Symptoms: have improved cp Condition: Stable cp Diagnosis - Epigastric pain cp - Vomiting, unspecified cp Followup: cp - With: Ranjeet Jaquez MD - When: as scheduled - Reason: Recheck today's complaints Discharge Instructions: - Discharge Summary Sheet cp - Abdominal Pain, Adult cp - Nausea and Vomiting, Adult cp Forms: - Medication Reconciliation Form cp - Antibiotic Education cp - Prescription Opioid Use cp - Patient Portal Instructions cp - Leadership Thank You Letter cp Prescriptions: - Protonix 40 mg Oral Tablet - take 1 tablet ORAL route once daily; 30 tablet; Refills: 0, Product Selection cp Permitted - ondansetron 8 mg Oral Tablet,disintegrating - take 1 tablet ORAL route every 12 hours; 20 tablet; Refills: 0, Product cp Selection Permitted Signatures: Dispatcher [employer] EDMS Volodymyr Cancino MD MD cha Page, Corey, PA PA Sammi Andino RN RN mb9 Denia Barber RN RN cm10 Kathy Crockett RN me1 Corrections: (The following items were deleted from the chart) 15:04 15:04 Abdomen Pelvis W Con+CT.RAD.BRZ ordered. EDMS EDMS 17:30 17:29 Abdomen Pelvis W Con+CT.RAD.BRZ ordered. EDMS EDMS
[2024-01-01 20:20] VITALS: TEMP 98.5; O2SAT 100
[2024-01-01 20:22] VITALS: BP 151/64
== END 2024-01-01 19:18 | disposition home or self-care (01) ==
LOC: ER 14:29
DX: R10.13 Epigastric pain (principal); R11.10 Vomiting, unspecified; E11.9 Type 2 diabetes mellitus without complications; I10 Essential (primary) hypertension
CPT/HCPCS: 85025; 81001; 36415; 83690; 80053; 74177; 96375; 96374; 99284; Q9967; J2405